=== PATIENT | female | born 1975 | race Caucasian/White ===

== ENCOUNTER → 2016-05-14 | Outpatient (CLI) | payer MEDICAID ==
[~2016-05-14] MED LIST: AC325T PO; ACHD5005 PO; ALBU0.8322 IH; ALBU17AE23 INH; ALBU8.5H2 IH; ALPR1T; AMIT50TA3 PO; AML5T PO; AMLO10TA82 PO; AMOX-355 PO; AMOX-358 PO; AMOX500C2 PO; AZIT250T5 PO; AZIT500T PO; AZTH250C PO; BENZ-13 PO; BENZ200C51 PO; BNZT1T PO; BNZT2T PO; BSP10T PO; BUDE10.2 IH; BUDE6HFA IH; CALC-80 PO; CEFP200T2 PO; CETI10TA17 PO; CHOL200018 PO; CLIN-62 PO; CLIN300C3 PO; CLON0.5T3 PO; CPR500T PO; CYAN25003 SL; CYCL10TA9 PO; CYCL5TAB PO; DAPS25TA2 PO; DESV100T PO; DIAZ10TA; DIPH-639 PO; DIPH1TAB PO; DOC-Q-LACE PO; DOXY100T2 PO; DPH25C PO; DULO60CA58 PO; DULO60CA6; DULO60CA6 PO; ERT1OO OP; FLUC150T PO; FLUT1DIS27 IH; FOLI-74 PO; FURO20TA4 PO; FURO40TA4 PO; GABA-486 PO; GABA-488 PO; GBPN300C PO; GEMF600T3 PO; GLIP-30 PO; GLIP5TAB13 PO; GLIP5TAB26 PO; GMFB600T PO; GUAI-554 PO; HCT25T PO; HYDR-229; HYDR-229 PO; HYDR-2854 PO; HYDR-34 PO; HYDR-3458 PO; HYDR-3584 PO; HYDR-3714 PO; HYDR-3720 PO; HYDR-3812 PO; HYDR-700 PO; HYDR25CA5 PO; IBP600T1; IBP600T1 PO; IBP800T PO; IBUP-1773 PO; IBUP-1780 PO; IBUP800T26 PO; INSU100I10 SQ; INSU100V16 SQ; INSU100V6 SQ; IPRA0.2S51 IH; IPRA3AMP11 INH; IPRA4AER IH; LANS30CA PO; LEVO750T24 PO; LEVO750T9 PO; LIRA0.6P SQ; LIRA0.6P3 SC; LISI-552 PO; LISI-596 PO; LISI20TA PO; LNS30CCR PO; LOPE2CAP PO; LORA10TA7; LORA10TA7 PO; LSNP20T PO; LUNESTA; MDR10T PO; MELATONIN 300MCG PO; METF-380 PO; METF1000 PO; METR500T PO; MIRT15TA6 PO; MNTL10T PO; MONT10TA24 PO; MULT-974 PO; NAPR-243 PO; NAPR250T2 PO; NEBU1EAC2 MC; NEBULIZER SOLN; NYST1POW15 TOP; OMEP40CA36 PO; ONDA-43 PO; ONDA4TAB8 SL; ONDA8TAB13 PO; ONDA8TAB6 PO; ONDA8TAB9 PO; ONDN4T PO; OXYC-12 PO; PHEN200T27 PO; POTA-51 PO; POTA10CA16 PO; POTA10CA43 PO; PRAV40TA PO; PRAV40TA2 PO; PRD10T PO; PRD20T PO; PRED10TA PO; PREG150C PO; PREG75CA; PREN-102 PO; PREN-93 PO; PROM6.25; PROP40TA5 PO; RAME8T; RANI150C11 PO; RANI150T11 PO; RISP1TAB19; RNT150T PO; RT-ALBUINH IH; SODI0.5GEL NS; SUCR1TAB PO; SULF-222 PO; SULF1TAB38 PO; TERA10CA3 PO; TERA5CAP10 PO; TOPI50TA20 PO; TRAZ150T42 PO; TRZ100T PO; ZIPR20CA26 PO; ZIPR60CA7 PO; ZIPR80CA9 PO; ZPR20C; ZPR80C PO; multivitamin PO
--- OUTSIDE RECORDS SUMMARY | 2016-05-14 09:05 | XMS REPORT | Continuity of Care Document ---
Author Author [facility] Organization [facility] Address Unknown Phone Unavailable Care Team Providers Care Welding Foreman Name Role Phone PCP Unavailable Source Comments Some departments are not documenting in the electronic medical record. If you do not see the information that you expected, contact Release of Information in the Health Information Management department at [phone] for further assistance in locating additional records.[facility] Active Allergies and Adverse Reactions Not on File Current Medications Prescription Sig. Disp. Refills Start End Date Status Date ibuprofen (MOTRIN) 800 mg Take 800 mg by mouth Active tablet every 6 hours as needed. metformin-ER(+) Take 1,000 mg by mouth Active (FORTAMET) 1,000 mg daily with dinner. tablet gabapentin (NEURONTIN) Take 300 mg by mouth Active 300 mg capsule three times daily. traZODone (DESYREL) 100 Take 100 mg by mouth at Active mg tablet bedtime daily. loratadine (ALAVERT) 10 Take 10 mg by mouth Active mg tablet daily. ziprasidone (GEODON) 80 Take 80 mg by mouth twice Active mg capsule daily with meals. benztropine (COGENTIN) 1 Take 1 mg by mouth twice Active mg tablet daily. MULTIVIT WITH Take by mouth. Active CALCIUM,IRON,MIN (WOMEN'S ONE DAILY PO) terazosin(+) (HYTRIN) 10 Take 1 Cap by mouth at 90 Cap 0 03/02/20 Active mg capsule bedtime daily. 14 Active Problems Problem Noted Date Difficulty voiding 09/14/2012 Social History Tobacco Use Types Packs/Day Years Used Date Never Smoker Alcohol Use Drinks/Week oz/Week Comments No Last Filed Vital Signs Vital Sign Reading Time Taken Blood Pressure 120/72 09/10/2012 1:28 PM CDT Pulse 84 09/10/2012 1:28 PM CDT Temperature - - Respiratory Rate 20 09/10/2012 1:28 PM CDT Height 1.626 m (5' 4") 09/10/2012 1:28 PM CDT Weight 208.655 kg (460 lb) 09/10/2012 1:28 PM CDT Body Mass Index 78.92 09/10/2012 1:28 PM CDT Oxygen Saturation - - Plan of Care Health Maintenance Due Date Last Done Comments Physical (Comprehensive) 1980 Exam Pertussis Vaccine 1984 Tetanus Vaccine 1990 Cervical Cancer Screening 1994 Influenza Vaccine 12/14/2015 Results from Last 3 Months Not on file
--- NOTE | 2016-05-14 10:27 | Diagnostic Imaging Report ---
CLINICAL INDICATION: Patient with nausea and elevated liver enzymes. Of note, patient ate eggs for a gastric emptying exam prior to this exam. EXAM: Right upper quadrant ultrasound. COMPARISON: Complete abdominal ultrasound dated 01/04/2009. FINDINGS: Limited exam due to patient body habitus. The liver is enlarged measuring 26 cm in craniocaudal dimension. Liver previously measured 25 cm. There is diffuse hyperechogenicity seen throughout the liver with smooth liver surface. There is no gross liver mass seen. The main portal vein demonstrates hepatopedal flow. Limited visualization of the kidney shows no gross abnormalities visualized. The kidney measures 13.3 cm in craniocaudal dimension. The pancreas is not well visualized on this exam due to bowel gas and patient body habitus. Common bile duct was unable to be visualized and obscured. The gallbladder also was not able to be visualized and obscured. The gallbladder may also be completely contracted given that patient had just recently ate. There is no sonographic Brown sign. There is no abdominal ascites. IMPRESSION: 1: Very limited exam with the gallbladder, common bile duct, and pancreas unable to be evaluated. This could be due to patient body habitus and overlying bowel gas. Also, patient ate prior to this exam limiting evaluation of the gallbladder. 2: Hepatomegaly with diffuse hyperechogenicity throughout the liver seen which may be related to chronic hepatocellular disease or diffuse fatty infiltration. Dictated by: Dictated on workstation # [id number]
--- NOTE | 2016-05-14 14:23 | Diagnostic Imaging Report ---
Gastric emptying scan. INDICATION: Chronic nausea. After the oral administration of 1 mCi of technetium 99m sulfur colloid mixed in a meal , images over the stomach with counts performed. FINDINGS: Gastric emptying is 25% at one hour , 52% at 2 hours, 72%, at 3 hours, and 88% at 4 hours. IMPRESSION: Gastric emptying within normal limits. Dictated by: Dictated on workstation # [id number]
== END ==
LOC: CARD 09:00
PROVIDERS: ATTEND Family Medicine
DX: R11.0 Nausea (principal); R74.0 Nonspecific elevation of levels of transaminase and lactic acid dehydrogenase [LDH]; R16.0 Hepatomegaly, not elsewhere classified
CPT/HCPCS: 76705; 78264

== ENCOUNTER 2016-07-21 18:30 | Emergency (ER) | payer MEDICAID ==
[~2016-07-21] VITALS: Ht 162.6 cm; Wt 200.0 kg
[~2016-07-21 18:30] MED LIST changes: -CETI10TA17 PO; -IBUP-1780 PO; -SUCR1TAB PO
[2016-07-21] MEDS ORDERED: RT-ALBUTEROL/IPRATROPIUM 3 ML (DUONEB) VIAL ONE (19:24)
[2016-07-21] MEDS ORDERED: RT-ALBUTEROL/IPRATROPIUM 3 ML (DUONEB) VIAL INH ONE (19:30)
[2016-07-21] MEDS ORDERED: ANTACID SUSP 30 ML UDC (MYLANTA) PO ONE (20:15)
[2016-07-21] MEDS ORDERED: LIDOCAINE 2% VISCOUS 15 ML UDC PO ONE (20:15)
[2016-07-21 20:28] LABS: BASOPHILS % (AUTO) 0 % (0-10); EOSINOPHILS # (AUTO) 0.2 10^3/uL (0.0-0.3); EOSINOPHILS % (AUTO) 2 % (0-10); LYMPHOCYTES # (AUTO) 2.7 X 10^3 (1.0-4.0); LYMPHOCYTES % (AUTO) 29 % (12-44); MEAN CORPUSCULAR HEMOGLOBIN 31 PG (25-34); MEAN CORPUSCULAR HGB CONC 33 G/DL (32-36); MEAN CORPUSCULAR VOLUME 95 FL (80-99); MEAN PLATELET VOLUME 10.9 FL (7.4-10.4); MONOCYTES # (AUTO) 0.5 X 10^3 (0.0-1.0); MONOCYTES % (AUTO) 6 % (0-12); NEUTROPHILS # (AUTO) 5.7 X 10^3 (1.8-7.8); NEUTROPHILS % (AUTO) 62 % (42-75); PLATELET COUNT 278 10^3/uL (130-400); RED BLOOD COUNT 3.86 10^6/uL (4.35-5.85); RED CELL DISTRIBUTION WIDTH 15.3 % (10.0-14.5); WHITE BLOOD COUNT 9.2 10^3/uL (4.3-11.0)
--- NOTE | 2016-07-21 20:41 | Diagnostic Imaging Report ---
INDICATION: Shortness of breath PA and lateral chest obtained at 8:45 p.m. and compared to 02/13/16. Heart and mediastinal silhouette are normal in appearance. There is poor inspiration but the lungs appear grossly clear. There is no pneumothorax or pleural fluid. IMPRESSION: Poor inspiration with no focal infiltrate or pneumothorax or pleural fluid. Dictated by: Dictated on workstation # [id number]
[2016-07-21 20:47] LABS: ALANINE AMINOTRANSFERASE 30 U/L (0-55); ALBUMIN 3.5 G/DL (3.2-4.5); ANION GAP 16 MMOL/L (5-14); ASPARTATE AMINO TRANSFERASE 66 U/L (5-34); BILIRUBIN,TOTAL 0.2 MG/DL (0.1-1.0); BLOOD UREA NITROGEN 20 MG/DL (7-18); BUN/CREATININE RATIO 27; CALCIUM 9.4 MG/DL (8.5-10.1); CARBON DIOXIDE 22 MMOL/L (21-32); CHLORIDE 100 MMOL/L (98-107); CREATININE SERUM 0.74 MG/DL (0.60-1.30); GFR ESTIMATED > 60; GLUCOSE 281 MG/DL (70-105); POTASSIUM 4.8 MMOL/L (3.6-5.0); SODIUM 138 MMOL/L (135-145); TOTAL PROTEIN 6.9 G/DL (6.4-8.2)
[2016-07-21 21:07] LABS: TROPONIN I < 0.30 NG/ML (<0.30)
--- NOTE | 2016-07-21 21:14 | ED Respiratory ---
General Chief Complaint: Respiratory Problems Stated Complaint: SOB/CHEST TIGHTNESS/PAIN Nursing Triage Note: c/o feeling soa/chest pain x3 days with cough. Source: patient, family (sister) Exam Limitations: no limitations History of Present Illness Time seen by provider: 19:30 Initial Comments 40-year-old female patient presents to the emergency department complaints of shortness of air. Patient has chronic shortness of air and hypoxia due to COPD , asthma, and sleep apnea. Patient states she is supposed to wear a seat Pap as well as O2 at home. States she wakes up with her see Pap mask at her hand ( when she wears it) as well as O2 and her hand. Patient relates that she seldom wears her seat Pap. Patient states she was supposed to see Dr. Cano on 10 July, but did not go to that appointment. Was also scheduled to have a sleep test done on Friday, but states she couldn't go. Initially reported central chest pain radiating through to the back for 3 days with cough, however now states she has chronic central chest pain with radiation to the back. Also reports chronic cough. States her sister was diagnosed with influenza B recently and both were prescribed Tamiflu. Denies improvement following Tamiflu treatment. Denies fevers, productive cough, sore throat, nasal congestion. Timing/Duration: other (chronic symptoms, worse over the last 3 days) Prior Episodes/Possible Cause: chronic episodes Modifying Factors: Worse With Activity, Worse With Coughing Allergies and Home Medications Allergies Coded Allergies: peach (Verified Allergy, Unknown, 02/14/16) Home Medications Albuterol Sulfate 8.5 Gm Hfa.aer.ad, 2 PUFF IH Q4H PRN for SHORTNESS OF BREATH, (Reported) Budesonide/Formoterol Fumarate 10.2 Gm Hfa.aer.ad, 1 PUFF IH BID, (Reported) Folic Acid/Mv,Fe,Other Min 1 Each Tablet, 1 TAB PO DAILY, (Reported) Gemfibrozil 600 Mg Tablet, 600 MG PO BID, (Reported) Ibuprofen 600 Mg Tablet, 600 MG PO QID, (Reported) Insulin Aspart 100 Unit/1 Ml Susp, 15-20 UNITS SQ AC, (Reported) Insulin Glargine,Hum.rec.anlog 100 Unit/1 Ml Vial, 50 UNITS SQ BID, (Reported) Ipratropium [place] 0.2 Mg/1 Ml Solution, 3 ML IH QID PRN for SHORTNESS OF BREATH, (Reported) UP TO 6 TIMES PER DAY Lisinopril 20 Mg Tablet, 20 MG PO DAILY, (Reported) Loperamide Hcl 2 Mg Capsule, PO UD PRN for DIARRHEA, (Reported) 2 CAPS INITIALLY, THEN 1 CAP AFTER EACH LOOSE STOOL. NOT TO EXCEED 8 CAPS/24 HRS. Loratadine 10 Mg Tablet, 10 MG PO DAILY, (Reported) Metformin HCl 1,000 Mg Tablet, 1,000 MG PO BID WITH MEALS, (Reported) Montelukast Sodium 10 Mg Tablet, 10 MG PO DAILY, (Reported) Omeprazole 40 Mg Capsule.dr, 40 MG PO DAILY, (Reported) Pravastatin Sodium 40 Mg Tablet, 40 MG PO HS, (Reported) Pregabalin 150 Mg Capsule, 300 MG PO BID, (Reported) TAKES 2 (150 MG) CAPSULES Ranitidine HCl 150 Mg Tablet, 300 MG PO HS, (Reported) TAKES 2 (150 MG) TABLETS Constitutional: No fever, malaise EENTM: no symptoms reported Respiratory: see HPI, cough (chronic cough, worse over the last 3 days), dyspnea on exertion (chronic dyspnea on exertion), orthopnea (chronic orthopnea) , No phlegm, short of breath (chronic shortness of breath, worse over the last 3 days) Cardiovascular: see HPI, No palpitations, No syncope Gastrointestinal: no symptoms reported Genitourinary: no symptoms reported Skin: no symptoms reported Psychiatric/Neurological: No Symptoms Reported All Other Systems Reviewed Negative Unless Noted: Yes (Negative excepted noted.) Past Tbreqzw-Qoqlav-Tuzxdc Hx Patient Social History Alcohol Use: Denies Use Recreational Drug Use: No Smoking Status: Former Smoker Type Used: Cigarettes 2nd Hand Smoke Exposure: No Recent Foreign Travel: No Contact w/Someone Who Travel: No Recent Infectious Disease Expo: No Recent Hopitalizations: No Immunizations Up To Date Tetanus Booster (TDap): Less than 5yrs PED Vaccines UTD: No Date of Pneumonia Vaccine: Jan 13, 2012 Date of Influenza Vaccine: Feb 26, 2012 Seasonal Allergies Seasonal Allergies: No Surgeries HX Surgeries: Yes (abscess on abd , "BLADDER STRETCH") Surgeries: Adenoidectomy, Bladder Surgery, Tonsillectomy Respiratory Hx Respiratory Disorders: Yes (has Cpap (seldom wearing), wears home O2) Respiratory Disorders: Asthma, Sleep Apnea, COPD Cardiovascular Hx Cardiac Disorders: Yes Cardiac Disorders: Chronic Edema/Swelling, High Cholesterol, Hypertension Neurological Hx Neurological Disorders: No Reproductive System : No Hx Reproductive Disorders: No Sexually Transmitted Disease: No HIV/AIDS: No Female Reproductive Disorders: Denies Genitourinary Hx Genitourinary Disorders: No Gastrointestinal Hx Gastrointestinal Disorders: Yes Gastrointestinal Disorders: Gastroesophageal Reflux, Chronic Constipation Musculoskeletal Hx Musculoskeletal Disorders: No Musculoskeletal Disorders: Chronic Back Pain Endocrine Hx Endocrine Disorders: Yes (Type II, morbid obesity) Endocrine Disorders: Diabetes, Insulin dep HEENT HX ENT Disorders: No Loss of Vision: Denies Hearing Impairment: Denies Cancer Hx Cancer: No Psychosocial Hx Psychiatric Problems: Yes Behavioral Health Disorders: Anxiety, Depression Integumentary HX Skin/Integumentary Disorder: No (MULTIPLE ABCESSES REMOVED ABDOMEN) Skin/Integumentary Disorders: Eczema Blood Transfusions Hx Blood Disorders: No Adverse Reaction to a Blood Tr: No Reviewed Nursing Assessment Reviewed/Agree w Nursing PMH: Yes Family Medical History Significant Family History: Heart Disease, Seizures Family Medial History: Cancer 19 FATHER, Onset:Unknown 19 MOTHER, Onset:Unknown Cancer of colon 19 FATHER, Onset:Unknown 19 MOTHER, Onset:Unknown Family history: Cardiovascular disease 19 FATHER, Onset:Unknown 19 MOTHER, Onset:Unknown Family history: Diabetes mellitus 19 FATHER, Onset:Unknown 19 MOTHER, Onset:Unknown Physical Exam Vital Signs Capillary Refill : Less Than 3 Seconds General Appearance: no apparent distress (patient talking constantly without difficulty. Patient noted to talk the majority of the visit without shortness of air noted.), obese (morbid obesity.) Eyes: Bilateral Eye EOMI, Bilateral Eye Normal Inspection, Bilateral Eye PERRL HEENT: PERRL/EOMI, normal ENT inspection, TMs normal, pharynx normal Neck: supple, normal inspection Respiratory: lungs clear, no respiratory distress, no accessory muscle use, crackles, No rales, No rhonchi, No wheezing, expiration Cardiovascular: normal peripheral pulses, no murmur, tachycardia Gastrointestinal: normal bowel sounds, non tender, soft Extremities: no calf tenderness, normal capillary refill, pedal edema (one plus bilaterally) Neurologic/Psychiatric: alert, normal mood/affect, oriented x 3 Skin: normal color, warm/dry Progress/Results/Core Measures Results/Orders Lab Results Laboratory Tests Test 07/21/16 20:20 Range/Units White Blood Count 9.2 4.3-11.0 10^3/uL Red Blood Count 3.86 L 4.35-5.85 10^6/uL Hemoglobin 12.0 11.5-16.0 G/DL Hematocrit 37 35-52 % Mean Corpuscular Volume 95 80-99 FL Mean Corpuscular Hemoglobin 31 25-34 PG Mean Corpuscular Hemoglobin Concent 33 32-36 G/DL Red Cell Distribution Width 15.3 H 10.0-14.5 % Platelet Count 278 130-400 10^3/uL Mean Platelet Volume 10.9 H 7.4-10.4 FL Neutrophils (%) (Auto) 62 42-75 % Lymphocytes (%) (Auto) 29 12-44 % Monocytes (%) (Auto) 6 0-12 % Eosinophils (%) (Auto) 2 0-10 % Basophils (%) (Auto) 0 0-10 % Neutrophils # (Auto) 5.7 1.8-7.8 X 10^3 Lymphocytes # (Auto) 2.7 1.0-4.0 X 10^3 Monocytes # (Auto) 0.5 0.0-1.0 X 10^3 Eosinophils # (Auto) 0.2 0.0-0.3 10^3/uL Basophils # (Auto) 0.0 0.0-0.1 10^3/uL Sodium Level 138 135-145 MMOL/L Potassium Level 4.8 3.6-5.0 MMOL/L Chloride Level 100 98-107 MMOL/L Carbon Dioxide Level 22 21-32 MMOL/L Anion Gap 16 H 5-14 MMOL/L Blood Urea Nitrogen 20 H 7-18 MG/DL Creatinine 0.74 0.60-1.30 MG/DL Estimat Glomerular Filtration Rate > 60 BUN/Creatinine Ratio 27 Glucose Level 281 H 70-105 MG/DL Calcium Level 9.4 8.5-10.1 MG/DL Magnesium Level 1.9 1.8-2.4 MG/DL Total Bilirubin 0.2 0.1-1.0 MG/DL Aspartate Amino Transf (AST/SGOT) 66 H 5-34 U/L Alanine Aminotransferase (ALT/SGPT) 30 0-55 U/L Alkaline Phosphatase 95 40-136 U/L Troponin I < 0.30 <0.30 NG/ML B-Type Natriuretic Peptide < 10.0 <100.0 PG/ML Total Protein 6.9 6.4-8.2 G/DL Albumin 3.5 3.2-4.5 G/DL TSH Melvin Testing 0.60 0.35-4.94 UIU/ML My Orders Orders - SHAR BULL PA Albuterol/Ipra Inhalation Soln (Duoneb I (07/21/16 19:30) Svn Sm Volume Nebulizer Rt-Rfs (07/21/16 19:25) Chest Pa/Lat (2 View) (07/21/16 19:27) Albuterol/Ipra Inhalation Soln (Duoneb I (07/21/16 19:24) Cbc With Automated Diff (07/21/16 20:01) Comprehensive Metabolic Panel (07/21/16 20:01) Magnesium (07/21/16 20:01) Thyroid Analyzer (07/21/16 20:01) Troponin I (07/21/16 20:01) Saline Lock/Iv-Start (07/21/16 20:01) Ekg Tracing (07/21/16 20:01) O2 (07/21/16 20:01) Monitor-Rhythm Ecg Trace Only (07/21/16 20:01) Lidocaine 2% Viscous 15 Ml (Xylocaine Vi (07/21/16 20:15) Antacid Suspension (Mylanta Suspension (07/21/16 20:15) BNP (07/21/16 20:01) Methylprednisolone Sod Succ (Solu-Medrol (07/21/16 21:55) Iv Push Mash Tub Cooker Ed (07/21/16 ) Medications Given in ED Vital Signs/I&O Blood Pressure Mean: 106 Diagnostic Imaging Diagonstic Imaging: Xray Plain Films/CT/US/NM/MRI: chest Comments INDICATION: Shortness of breath PA and lateral chest obtained at 8:45 p.m. and compared to 02/13/16. Heart and mediastinal silhouette are normal in appearance. There is poor inspiration but the lungs appear grossly clear. There is no pneumothorax or pleural fluid. IMPRESSION: Poor inspiration with no focal infiltrate or pneumothorax or pleural fluid. Dictated by: Dictated on workstation # [id number] Reviewed: Reviewed by Me (radiology report reviewed by me) Departure Communication Progress Notes Patient heard going to and coming from x-ray talking to the staff without difficulty. Speaking in full sentences. Patient case discussed with Dr. Cano. Dr. Cano recommends discharge to home with follow-up as an outpatient in her office. Request patient to continue all current medications and orders. All laboratory findings, diagnostic study findings, and recommendations per Dr. Cano were discussed with the patient and family present in the room. All discharge instructions and all return precautions were discussed with the patient as described in the discharge instructions of this report. Both voice understanding and agree with the treatment plan. Impression Impression: Primary Impression: COPD with asthma Additional Impression: Diabetes mellitus Disposition: HOME, SELF-CARE Condition: Improved Departure-Patient Inst. Decision time for Depature: 21:17 Referrals: ZAINAB CANO MD (PCP/Family) Primary Care Physician IDALIA YIN MD Patient Instructions: Medicines for Chronic Obstructive Pulmonary Disease (COPD ) Add. Discharge Instructions: All discharge instructions reviewed with patient and/or family. Voiced understanding. Continue usual medications. Monitor your blood sugars closely. Follow-up with Dr. Cano this week for recheck, call for appointment time. Call the sleep lab on Friday to reschedule your sleep test. Return to the emergency department for worsened shortness breath, chest pain, fever, vomiting , decreased urination, or any other concerns. SHAR BULL Jul 21, 2016 21:14
[2016-07-21 21:15] LABS: MAGNESIUM 1.9 MG/DL (1.8-2.4)
[2016-07-21] MEDS ORDERED: methylPREDNISolone 125 MG (Solu-MEDROL) VIAL IV STA (21:55)
[2016-07-21 22:03] VITALS: BP 133/59
--- OUTSIDE RECORDS SUMMARY | 2016-08-25 06:38 | XMS REPORT | Continuity of Care Document ---
Author Author [facility] Organization [facility] Address Unknown Phone Unavailable Care Team Providers Care Supervisor Stone Name Role Phone PCP Unavailable Source Comments Some departments are not documenting in the electronic medical record. If you do not see the information that you expected, contact Release of Information in the Health Information Management department at [phone] for further assistance in locating additional records.[facility] Active Allergies and Adverse Reactions Not on [...] Tetanus Vaccine 1990 Cervical Cancer Screening 1994 Breast Cancer Screening 2013 Influenza Vaccine 12/13/2016 Results from Last 3 Months Not on file
--- OUTSIDE RECORDS SUMMARY | 2016-08-25 06:38 | XMS REPORT ---
Author Author ZAINAB HESS [facility] eClinicalWorks Address Unknown Phone Unavailable Care Team Providers Care Checkout Operator Name Role Phone ZAINAB HESS CP Unavailable Allergies No Known Allergies Problems Problem Type Condition ICD-9 Code Onset Dates Condition Status Problem Lumbago 724.2 Active Problem Microalbuminuria 791.0 Active Problem Unspecified tinnitus 388.30 Active Problem Obesity hypoventilation syndrome 278.03 Active Problem Lymphedema 457.1 Active Problem Hyperlipidemia 272.4 Active Problem Chronic nausea 787.02 Active Problem Chronic diarrhea 787.91 Active Problem Bladder dysfunction 596.59 Active Problem Obstructive sleep apnea 327.23 Active Problem Insomnia, unspecified 780.52 Active Problem Esophageal reflux 530.81 Active Problem Essential hypertension, benign 401.1 Active Problem Meralgia paresthetica 355.1 Active Problem Major depressive disorder, recurrent episode, moderate 296.32 Active Problem Morbid obesity 278.01 Active Problem Diabetes with neurological manifestations, type II or unspecified type , not stated as uncontrolled 250.60 Active Problem Anxiety state, unspecified 300.00 Active Medications Medication Code System Code Instructions Start Date End Date Status Dosage Zofran ODT [facility] [address]-57 8 MG Orally every 8 hrs as needed 1 tablet on the tongue and allow to dissolve Results No Known Results Summary Purpose eClinicalWorks Submission
--- OUTSIDE RECORDS SUMMARY | 2016-08-25 06:38 | XMS REPORT ---
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 Active 966188561278 Problem Chronic tension-type headache, intractable G44.221 Active 516828858 Problem Low back pain M54.5 Active 962659187 Problem Anxiety F41.9 Active 68523381 Problem Type 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 Active 63991550 Problem Tinnitus of both ears H93.13 Active 5813391704237 Problem Chronic nausea R11.0 Active 863397044 Problem Obstructive sleep apnea G47.33 Active 12514016 Problem Microalbuminuria R80.9 Active 270086035 Problem Chronic diarrhea K52.9 Active 507319461 Problem Primary insomnia F51.01 Active 931050921 Problem Gastroesophageal reflux disease, esophagitis presence not specified K21.9 Active 315769715 Problem Lymphedema I89.0 Active 745577701 Problem Major depressive disorder, recurrent, unspecified F33.9 Active 124223401 Problem Hypertriglyceridemia E78.1 Active 111601791 Problem Type 2 diabetes mellitus with hyperglycemia E11.65 Active 54497574 ALLERGIES Unknown Allergies SOCIAL HISTORY No smoking Hx information available PLAN OF CARE VITAL SIGNS MEDICATIONS Unknown Medications RESULTS No Results PROCEDURES No Known procedures IMMUNIZATIONS No Known Immunizations
--- OUTSIDE RECORDS SUMMARY | 2016-08-25 06:39 | XMS REPORT ---
Author Author ZAINAB HESS [employer]Clinical[employer] Address Unknown Phone Unavailable Care Team Providers Care Wrapper Off Name Role Phone ZAINAB HESS CP Unavailable Allergies No Known Allergies Problems Problem Type Condition Code Onset Dates Condition Status Problem Primary insomnia F51.01 Active Problem Major depressive disorder, recurrent, unspecified F33.9 Active Problem Gastroesophageal reflux disease, esophagitis presence not specified K21.9 Active Problem Low back pain M54.5 Active Problem Anxiety F41.9 Active Problem Tinnitus of both ears H93.13 Active Problem Essential hypertension I10 Active Problem Type 2 diabetes mellitus with hyperglycemia E11.65 Active Problem Morbid obesity with alveolar hypoventilation E66.2 Active Problem Meralgia paresthetica, unspecified laterality G57.10 Active Problem 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 [address]-11 75 MG Orally Three times a day September 16, 2014 1 capsule Results No Known Results Summary Purpose eClinicalWorks Submission
--- OUTSIDE RECORDS SUMMARY | 2016-08-25 06:40 | XMS REPORT ---
Author Author ZAINAB HESS eClinicalWorks Address Unknown Phone Unavailable Care Team Providers Care Sales Representative Printing Paper Name Role Phone ZAINAB HESS CP Unavailable Allergies No Known Allergies Problems Problem Type Condition Code Onset Dates Condition Status Problem Type 2 diabetes mellitus with hyperglycemia E11.65 Active Problem Meralgia paresthetica, unspecified laterality G57.10 Active Problem Essential hypertension I10 Active Problem Chronic tension-type headache, intractable G44.221 Active Problem Type 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 Active Problem Recurrent cellulitis L03.90 Active Problem Anxiety F41.9 Active Problem Morbid obesity with alveolar hypoventilation E66.2 Active Problem Tinnitus of both ears H93.13 Active Problem Low back pain M54.5 Active Problem Chronic diarrhea K52.9 Active Problem Chronic nausea R11.0 Active Problem 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
--- OUTSIDE RECORDS SUMMARY | 2016-08-25 06:40 | XMS REPORT ---
Author Author ZAINAB HESS [employer]Clinical[employer] Address Unknown Phone Unavailable Care Team Providers Care Furniture And Bedding Inspector Name Role Phone ZAINAB HESS CP Unavailable Allergies No Known Allergies Problems Problem Type Condition Code Onset Dates Condition Status Problem Gastroesophageal reflux disease, esophagitis presence not specified K21.9 Active Problem Type 2 diabetes mellitus with hyperglycemia E11.65 Active Problem Major depressive disorder, recurrent, unspecified F33.9 Active Problem Tinnitus of both ears H93.13 Active Problem Low back pain M54.5 Active Problem Type 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 Active Problem Meralgia paresthetica, unspecified laterality G57.10 Active Problem Essential hypertension I10 Active Problem Anxiety F41.9 Active Problem Morbid obesity with alveolar hypoventilation E66.2 Active Problem 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
--- OUTSIDE RECORDS SUMMARY | 2016-08-25 06:40 | XMS REPORT ---
Author LYN Pisano [facility] eClinicalWorks Address Unknown Phone Unavailable Care Team Providers Care Brazing Machine Operator Automatic Name Role Phone LYN BECKWITH CP Unavailable Allergies, Adverse Reactions, Alerts Substance Reaction Event Type Amitriptyline HCl Info Not Available Drug Allergy Hydrocodone-acetaminophen 7.5-500 Mg Tablet Violated narcotics contract Non Drug Allergy Problems Problem Type Condition Code Onset Dates Condition Status Problem Type 2 diabetes mellitus with hyperglycemia E11.65 Active Problem Meralgia paresthetica, unspecified laterality G57.10 Active Problem Essential hypertension I10 Active Problem Chronic tension-type headache, intractable G44.221 Active Assessment Dental examination Z01.20 Active Problem Type 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 Active Assessment Dental caries K02.9 Active Problem Recurrent cellulitis L03.90 Active Problem [...] unspecified F33.9 Active Medications No Known Medications Procedures Procedure Coding System Code Date INTRAORL-PERIAPICAL 1 FILM 11767 CPT-4 D0220 October 25, 2015 SURG REMOVAL ERUPTED TOOTH CPT-4 D7210 October 25, 2015 LTD ORAL EVALUATION - PROBLEM FOCUS CPT-4 D0140 October 25, 2015 Vital Signs Date/Time: October 25, 2015 Blood Pressure Diastolic 96 mmHg Blood Pressure Systolic 160 mmHg Height 63 in Results No Known Results Summary Purpose eClinicalWorks Submission
--- OUTSIDE RECORDS SUMMARY | 2016-08-25 06:40 | XMS REPORT ---
Author Author LUCIE AKHTAR Organization [employer]Clinical[employer] Address Unknown Phone Unavailable Care Team Providers Care Regional Medical Director Name Role Phone LUCIE AKHTAR CP Unavailable Allergies No Known Allergies Problems [...] depressive disorder, recurrent, unspecified F33.9 Active Medications Medication Code System Code Instructions Start Date End Date Status Dosage [facility] [address]-38 5-325 MG Orally every 6 hrs 1 tablet as needed Procedures Procedure Coding System Code Date TX COMPS - UNUSUL CIRCUMSTANCES RPT CPT-4 D9930 October 30, 2015 INTRAORL-PERIAPICAL 1 FILM 16513 CPT-4 D0220 October 30, 2015 Vital Signs Date/Time: October 30, 2015 Blood Pressure Diastolic 84 mmHg Blood Pressure Systolic 150 mmHg Results No Known Results Summary Purpose eClinicalWorks Submission
--- OUTSIDE RECORDS SUMMARY | 2016-08-25 06:40 | XMS REPORT ---
Author Author ZAINAB HESS [employer] Address Unknown Phone Unavailable Care Team Providers Care Planner Chief Name Role Phone ZAINAB HESS CP Unavailable Allergies, Adverse Reactions, Alerts Substance [...] Problem Tinnitus of both ears H93.13 Active Assessment Cellulitis, unspecified cellulitis site L03.90 Active Problem Low back pain M54.5 Active Assessment Type 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 Active Assessment Postinflammatory hyperpigmentation L81.0 Active Problem Type 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 Active Problem Meralgia paresthetica, unspecified laterality G57.10 Active Problem Essential hypertension I10 Active Problem Anxiety F41.9 Active Problem Morbid obesity with alveolar hypoventilation E66.2 Active Problem 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 Active Problem Microalbuminuria R80.9 Active Assessment Intractable vomiting with nausea, vomiting of unspecified type R11.2 Active Assessment Chronic diarrhea K52.9 Active Problem Obstructive sleep apnea G47.33 Active Problem Lymphedema I89.0 Active Problem Chronic diarrhea K52.9 Active Problem Hypertriglyceridemia E78.1 Active Problem Chronic nausea R11.0 Active Problem Primary insomnia F51.01 Active Medications Medication Code System Code Instructions Start Date End Date Status Dosage Test strips NDC 0 Test Strips 4 times a day October 27, 2014 test blood sugar Lancets NDC 0 Blood Glucose 4 times a day October 27, 2014 test blood sugar NovoLog Flexpen [facility] [address]-98 100 UNIT/ML Subcutaneous 3 times a day before meals September 16, 2014 15 units Glucometer NDC 0 glucometer October 26, [address] [place] [address]-49 800-160 MG Orally Twice a day Apr 04, 2015 Apr 14, 2015 1 tablet Ibuprofen [facility] 33314970023 600 MG Orally Three times a day 1 tablet as needed Lyrica [facility] [address]-28 150 MG Orally Twice a day September 16, 2014 1 capsule Lancet Device [facility] 0 Blood Glucose October 27, 2014 as directed Loratadine [facility] [address]-53 10 MG Orally Once a day 1 tablet Geodon [facility] [address]-39 60 mg Orally Once a day 1 capsule with food Nebulizer ND 0 Jun 01, 2013 2 times per day PRN for SOB; Needed for lifetime Vitamins [facility] [address]-86 Orally Once a day 1 tablet Metformin HCl [facility] 70306731860 1000 MG Orally Twice a day 1 tablet with meals Montelukast Sodium [facility] 74842548372 10 MG TAKE 1 TABLET BY MOUTH EVERY DAY Symbicort [facility] [address]-63 160-4.5 MCG/ACT Inhalation Twice a day Mar 16, 2015 1 puffs Depo-Provera [facility] [address]-50 150 MG/ML Intramuscular 1 ml Cyanocobalamin [facility] [address]-17 1000 MCG Orally Once a day 1 tablet Lisinopril [facility] [address]-82 40 MG Orally Once a day 1 tablet Loperamide HCl [facility] 74270981647 2 MG take 2 capsule (4 mg) orally after 1st loose stool, followed by 1 cap after each subsequent loose stool not to exceed 16 mg/day, Pravastatin Sodium [facility] [address]-80 40 MG Orally Once a day at HS avoid grape fruit September 13, 2014 1 tablet Pen [place] [facility] [address]-08 31G X 6 MM Nov 17, 2014 as directed Ranitidine HCl [facility] 30820382042 150 MG TAKE 2 TABLETS BY MOUTH AT BEDTIME Chlorhexidine [facility] [address]-64 4 once weekly- wash for 15 seconds, avoid face, head and genitials October 14, 2014 as directed ProAir HFA [facility] [address]-69 108 (90 Base) MCG/ACT Inhalation every 4 hrs Mar 16, 2015 2 puffs as needed Vitamin N19-Jpkqg Acid [facility] [address]72 500-400 MCG Orally Once a day 1 tablet Lantus SoloStar [facility] [address]-18 100 UNIT/ML Subcutaneous Once a day 75-80 units Zofran ODT [facility] 52337398706 8 MG 1 tablet on the tongue and allow to dissolve every 8 hrs as needed Orally Ipratropium-Albuterol [facility] [address]-56 0.5-2.5 (3) MG/3ML Inhalation Four times a day, up to 6 doses per day 3 ml as needed Kaopectate Stool Softener ND 0 not defined Omeprazole [facility] 32675842888 40 MG TAKE 1 CAPSULE BY MOUTH EVERY DAY Procedures Procedure Coding System Code Date Office Visit, Est Pt., Level 3 CPT-4 63462 Apr 04, 2015 Vital Signs Date/Time: Apr 04, 2015 Temperature 98.8 F Weight 471.1 lbs Height 63 in BMI 83.44 Index Blood Pressure Diastolic 82 mmHg Blood Pressure Systolic 128 mmHg Cardiac Monitoring Heart Rate 96 bpm Results No Known Results Summary Purpose eClinicalWorks Submission
--- OUTSIDE RECORDS SUMMARY | 2016-08-25 06:41 | XMS REPORT ---
Author Author ZAINAB HESS [employer] Address Unknown Phone Unavailable Care Team Providers Care Fulling Mill Operator Name Role Phone ZAINAB HESS CP [...]
--- OUTSIDE RECORDS SUMMARY | 2016-08-25 06:41 | XMS REPORT ---
Author Author ZAINAB HESS [employer]ClinicalWorks Address Unknown Phone Unavailable Care Team Providers Care Micromatic Hone Operator Name Role Phone ZAINAB HESS CP [...] K52.9 Active Problem Hypertriglyceridemia E78.1 Active Medications No Known Medications Results No Known Results Summary Purpose eClinicalWorks Submission
--- OUTSIDE RECORDS SUMMARY | 2016-08-25 06:41 | XMS REPORT ---
Author Author [facility], [facility] eClinicalWorks Address Unknown Phone Unavailable Care Team Providers Care Chain Saw Driver Name Role Phone [facility], [facility] CP Unavailable Allergies No Known Allergies Problems [...] Z99.81 Active Problem Microalbuminuria R80.9 Active Assessment Unspecified mood [affective] disorder F39 Active Problem Obstructive sleep apnea G47.33 Active Problem Lymphedema I89.0 Active Problem Chronic diarrhea K52.9 Active Problem Hypertriglyceridemia E78.1 Active Problem Chronic nausea R11.0 Active Problem Primary insomnia F51.01 Active Medications No Known Medications Procedures Procedure Coding System Code Date HEALTH PROMOTION CPT-4 S0280 May 12, 2015 Results No Known Results Summary Purpose eClinicalWorks Submission
--- OUTSIDE RECORDS SUMMARY | 2016-08-25 06:42 | XMS REPORT ---
Author Author [facility], [facility] eClinicalWorks Address Unknown Phone Unavailable Care Team Providers Care Agricultural Purchasing Agent Name Role Phone [facility], [facility] CP Unavailable Allergies No Known Allergies [...] Medications Procedures Procedure Coding System Code Date CARE COORDINATION CPT-4 S0281 July 27, 2015 Results No Known Results Summary Purpose eClinicalWorks Submission
--- OUTSIDE RECORDS SUMMARY | 2016-08-25 06:42 | XMS REPORT ---
Author Author ZAINAB HESS [employer] Address Unknown Phone Unavailable Care Team Providers Care Fats And Oils Loader Name Role Phone ZAINAB HESS CP Unavailable [...]
--- OUTSIDE RECORDS SUMMARY | 2016-08-25 06:42 | XMS REPORT ---
Author Author [facility], [facility] eClinicalWorks Address Unknown Phone Unavailable Care Team Providers Care Patient Resource Coordinator Name Role Phone [facility], [facility] CP Unavailable Allergies No Known [...] System Code Date HEALTH PROMOTION CPT-4 S0280 July 26, 2015 Results No Known Results Summary Purpose eClinicalWorks Submission
--- OUTSIDE RECORDS SUMMARY | 2016-08-25 06:42 | XMS REPORT ---
Author Author ZAINAB HESS [employer] Address Unknown Phone Unavailable Care Team Providers Care Customer Counter Representative Name Role Phone ZAINAB HESS CP Unavailable [...]
--- OUTSIDE RECORDS SUMMARY | 2016-08-25 06:42 | XMS REPORT ---
Author Author ZAINAB HESS [facility] eClinicalWorks Address Unknown Phone Unavailable Care Team Providers Care Diesel Roller Operator Name Role Phone ZAINAB HESS CP [...] Problem Anxiety state, unspecified 300.00 Active Medications No Known Medications Results No Known Results Summary Purpose eClinicalWorks Submission
--- OUTSIDE RECORDS SUMMARY | 2016-08-25 06:43 | XMS REPORT ---
Author Author [facility], [facility] eClinicalWorks Address Unknown Phone Unavailable Care Team Providers Care Winch Truck Operator Name Role Phone [facility], [facility] CP Unavailable Allergies No Known Allergies Problems [...] 780.52 Active Problem Esophageal reflux 530.81 Active Assessment Affective disorder 296.90 Active Problem Essential hypertension, benign 401.1 Active Problem Meralgia paresthetica 355.1 Active Problem Major depressive disorder, recurrent episode, moderate 296.32 Active Problem Morbid obesity 278.01 Active Problem Diabetes with neurological manifestations, type II or unspecified type , not stated as uncontrolled 250.60 Active Problem Anxiety state, unspecified 300.00 Active Medications No Known Medications Procedures Procedure Coding System Code Date HEALTH PROMOTION CPT-4 S0280 Dec 01, 2014 Results No Known Results Summary Purpose eClinicalWorks Submission
--- OUTSIDE RECORDS SUMMARY | 2016-08-25 06:43 | XMS REPORT ---
Author Author ZAINAB HESS [employer] Address Unknown Phone Unavailable Care Team Providers Care Mds Manager Name Role Phone ZAINAB HESS CP Unavailable [...]
--- OUTSIDE RECORDS SUMMARY | 2016-08-25 06:43 | XMS REPORT ---
Author Author ZAINAB HESS [facility] eClinicalWorks Address Unknown Phone Unavailable Care Team Providers Care Retirement Village Manager Name Role Phone ZAINAB HESS CP Unavailable Allergies No Known Allergies Problems Problem Type Condition Code Onset Dates Condition Status Problem Lumbago [...] Instructions Start Date End Date Status Dosage Lantus SoloStar [facility] [address]-38 100 UNIT/ML Subcutaneous Once a day 75-80 units Results No Known Results Summary Purpose eClinicalWorks Submission
--- OUTSIDE RECORDS SUMMARY | 2016-08-25 06:43 | XMS REPORT ---
Author Author ZAINAB HESS eClinicalWorks Address Unknown Phone Unavailable Care Team Providers Care Drying Room Supervisor Name Role Phone ZAINAB HESS CP Unavailable Allergies No Known Allergies Problems Problem Type Condition Code Onset Dates Condition Status Problem Type 2 diabetes mellitus with hyperglycemia E11.65 Active Problem Meralgia paresthetica, unspecified laterality G57.10 Active Problem Essential hypertension I10 Active Problem Chronic tension-type headache, intractable G44.221 Active Assessment Type 2 diabetes mellitus with hyperglycemia E11.65 Active Problem Type 2 diabetes mellitus with [...] Start Date End Date Status Dosage Lantus [facility] [address]-88 100 UNIT/ML Subcutaneous Twice a day June 22, 2015 50 units NovoLog [facility] [address]-20 100 UNIT/ML Subcutaneous 3 times a day June 22, 2015 17 units Test strips ND 0 Test Strips 4 times a day October 27, 2014 test blood sugar Results No Known Results Summary Purpose eClinicalWorks Submission
--- OUTSIDE RECORDS SUMMARY | 2016-08-25 06:43 | XMS REPORT ---
Author Author LUCIE AKHTAR [facility] eClinicalWorks Address Unknown Phone Unavailable Care Team Providers Care Booking Manager Name Role Phone LUCIE AKHTAR Unavailable Allergies, Adverse Reactions, Alerts Substance Reaction [...] Instructions Start Date End Date Status Dosage Hope [facility] [address]-99 5-325 MG Orally every 6 hrs 1 tablet as needed Metformin HCl [facility] 13599584076 1000 MG TAKE 1 TABLET BY MOUTH WITH MEALS TWICE A DAY -YOUR ASKS YOU TO MAKE AN APPOINTMENT Loratadine [facility] 76691121974 10 MG TAKE 1 TABLET BY MOUTH EVERY DAY [facility] [address]-55 5-325 MG Orally every 6 hrs 1 tablet as needed Ranitidine HCl [facility] 96375535296 150 MG TAKE 2 TABLETS BY MOUTH DAILY AT BEDTIME Procedures Procedure Coding System Code Date LTD ORAL EVALUATION - PROBLEM FOCUS CPT-4 D0140 November 06, 2015 Vital Signs Date/Time: November 06, 2015 Blood Pressure Diastolic 80 mmHg Blood Pressure Systolic 130 mmHg Height 63 in Results No Known Results Summary Purpose eClinicalWorks Submission
--- OUTSIDE RECORDS SUMMARY | 2016-08-25 06:43 | XMS REPORT ---
Author Author HALINA WILBURN [facility] eClinicalWorks Address Unknown Phone Unavailable Care Team Providers Care Turkish Rubber Name Role Phone HALINA WILBURN CP Unavailable Allergies, Adverse Reactions, Alerts Substance [...] Active Problem Esophageal reflux 530.81 Active Assessment Dental caries K02.9 Active Assessment Abdominal abscess K65.1 Active Problem Essential hypertension, benign 401.1 Active Problem Meralgia paresthetica 355.1 Active Problem Major depressive disorder, recurrent episode, moderate 296.32 Active Problem Morbid obesity 278.01 Active Problem Diabetes with neurological manifestations, type II or unspecified type , not stated as uncontrolled 250.60 Active Problem Anxiety state, unspecified 300.00 Active Medications Medication Code System Code Instructions Start Date End Date Status Dosage Ibuprofen [facility] [address]-42 600 MG Orally Three times a day 1 tablet as needed Lantus SoloStar [facility] [address]-75 100 UNIT/ML Subcutaneous Once a day 75-80 units Lyrica [facility] [address]-65 75 MG Orally Three times a day September 16, 2014 1 capsule Loratadine [facility] [address]-65 10 MG Orally Once a day 1 tablet Cyanocobalamin [facility] [address]-96 1000 MCG Orally Once a day 1 tablet Kaopectate Stool Softener ND 0 not defined Chlorhexidine [facility] [address]-99 4 once weekly- wash for 15 seconds, avoid face, head and genitials October 14, 2014 as directed Pen [place] [facility] [address]-12 31G X 6 MM Nov 17, 2014 as directed NovoLog Flexpen [facility] [address]-41 100 UNIT/ML Subcutaneous 3 times a day before meals September 16, 2014 15 units Lancets NDC 0 Blood Glucose 4 times a day October 27, 2014 test blood sugar Depo-Provera [facility] [address]-93 150 MG/ML Intramuscular 1 ml Loperamide HCl [facility] [address]-89 2 MG September 08, 2014 take 2 capsule (4 mg) orally after 1st loose stool, followed by 1 cap after each subsequent loose stool not to exceed 16 mg/day, Vitamins [facility] [address]-12 Orally Once a day 1 tablet Geodon [facility] [address]-65 60 mg Orally Once a day 1 capsule with food Omeprazole [facility] [address]-87 40 MG Orally Once a day 1 capsule Metformin HCl [facility] [address]-18 1000 MG Orally Twice a day September 07, 2014 1 tablet with meals Lisinopril [facility] [address]-77 40 MG Orally Once a day 1 tablet Ipratropium-Albuterol [facility] [address]-37 0.5-2.5 (3) MG/3ML Inhalation Four times a day, up to 6 doses per day 3 ml as needed Pravastatin Sodium [facility] [address]-05 40 MG Orally Once a day at HS avoid grape fruit September 13, 2014 1 tablet Zofran ODT [facility] [address]-84 8 MG Orally every 8 hrs as needed 1 tablet on the tongue and allow to dissolve Lancet Device NDC 0 Blood Glucose October 27, 2014 as directed Nebulizer ND 0 Jun 01, 2013 2 times per day PRN for SOB; Needed for lifetime Vitamin Z97-Mazbh Acid [facility] 590[address]-72466 500-400 MCG Orally Once a day 1 tablet Test strips NDC 0 Test Strips 4 times a day October 27, 2014 test blood sugar Glucometer ND 0 glucometer October 26, 2014 as directed Bactrim DS [facility] [address]-27 800-160 MG Orally 2 times a day Jan 19, 2015 Jan 26, 2015 1 tablet Procedures Procedure Coding System Code Date Office Visit, Est Pt., Level 3 CPT-4 70296 Jan 19, 2015 Vital Signs Date/Time: Jan 19, 2015 Temperature 98.4 F Weight 482.5 lbs Height 63 in BMI 85.46 Index Blood Pressure Diastolic 80 mmHg Blood Pressure Systolic 150 mmHg Cardiac Monitoring Heart Rate 120 bpm Results No Known Results Summary Purpose eClinicalWorks Submission
--- OUTSIDE RECORDS SUMMARY | 2016-08-25 06:43 | XMS REPORT ---
Author Author ZAINAB HESS [facility] eClinicalWorks Address Unknown Phone Unavailable Care Team Providers Care Dietitian Consultant Name Role Phone ZAINAB HESS CP Unavailable [...]
--- OUTSIDE RECORDS SUMMARY | 2016-08-25 06:43 | XMS REPORT ---
Author Author ZAINAB HESS [facility] eClinicalWorks Address Unknown Phone Unavailable Care Team Providers Care Process Tech Name Role Phone ZAINAB HESS CP Unavailable [...] Start Date End Date Status Dosage Lyrica [facility] [id number] 150 MG TAKE 2 CAPSULES BY MOUTH TWICE DAILY Results No Known Results Summary Purpose eClinicalWorks Submission
--- OUTSIDE RECORDS SUMMARY | 2016-08-25 06:44 | XMS REPORT ---
Author Author ZAINAB HESS eClinicalWorks Address Unknown Phone Unavailable Care Team Providers Care Civil Engineering Design Draftsperson Name Role Phone ZAINAB HESS CP Unavailable [...]
--- OUTSIDE RECORDS SUMMARY | 2016-08-25 06:44 | XMS REPORT ---
Author Author ZAINAB HESS eClinicalWorks Address Unknown Phone Unavailable Care Team Providers Care Video Game Programmer Name Role Phone ZAINAB HESS CP Unavailable [...]
--- OUTSIDE RECORDS SUMMARY | 2016-08-25 06:44 | XMS REPORT ---
Author Author ZAINAB HESS [facility] eClinicalWorks Address Unknown Phone Unavailable Care Team Providers Care Long Term Care Administrator Name Role Phone ZAINAB HESS CP Unavailable [...] Instructions Start Date End Date Status Dosage Loratadine [facility] [address]-02 10 MG Orally Once a day 1 tablet Pravastatin Sodium [facility] [address]-04 40 MG Orally Once a day at HS avoid grape fruit September 13, 2014 1 tablet Results No Known Results Summary Purpose eClinicalWorks Submission
--- OUTSIDE RECORDS SUMMARY | 2016-08-25 06:45 | XMS REPORT ---
Author Author LUCIE AKHTAR eClinicalWorks Address Unknown Phone Unavailable Care Team Providers Care Clocksmith Name Role Phone LUCIE AKHTAR Unavailable Allergies, [...] Z99.81 Active Problem Microalbuminuria R80.9 Active Assessment Dental examination Z01.20 Active Problem Obstructive sleep apnea G47.33 Active Problem Lymphedema I89.0 Active Problem Chronic diarrhea K52.9 Active Problem Hypertriglyceridemia E78.1 Active Problem Chronic nausea R11.0 Active Problem Primary insomnia F51.01 Active Medications Medication Code System Code Instructions Start Date End Date Status Dosage Metformin HCl [facility] 16939226883 1000 MG Orally Twice a day 1 tablet with meals Symbicort [facility] [address]-09 160-4.5 MCG/ACT Inhalation Twice a day Mar 16, 2015 1 puffs Pravastatin Sodium [facility] [address]-88 40 MG Orally Once a day at HS avoid grape fruit September 13, 2014 1 tablet Loratadine [facility] [address]-45 10 MG Orally Once a day 1 tablet Loperamide HCl [facility] 18530067745 2 MG take 2 capsule (4 mg) orally after 1st loose stool, followed by 1 cap after each subsequent loose stool not to exceed 16 mg/day, NovoLog Flexpen [facility] [address]-19 100 UNIT/ML Subcutaneous 3 times a day before meals September 16, 2014 15 units Zofran ODT [facility] 70499744559 8 MG 1 tablet on the tongue and allow to dissolve every 8 hrs as needed Orally Pen [place] [facility] [address]-80 31G X 6 MM Nov 17, 2014 as directed Vitamin S59-Dsbhl Acid [facility] 02[address]-91469 500-400 MCG Orally Once a day 1 tablet Ranitidine HCl [facility] 95271517141 150 MG TAKE 2 TABLETS BY MOUTH AT BEDTIME ProAir HFA [facility] [address]-90 108 (90 Base) MCG/ACT Inhalation every 4 hrs Mar 16, 2015 2 puffs as needed Glucometer ND 0 glucometer October 26, 2014 as directed Kaopectate Stool Softener ND 0 not defined Nebulizer ND 0 Jun 01, 2013 2 times per day PRN for SOB; Needed for lifetime Geodon [facility] [address]-77 20 MG Intramuscular Once a day 1 capsule with food Omeprazole [facility] 70531777664 40 MG TAKE 1 CAPSULE BY MOUTH EVERY DAY Bactrim DS [facility] [address]-70 800-160 MG Orally Twice a day Apr 04, 2015 Apr 14, 2015 1 tablet Lantus SoloStar [facility] [address]-96 100 UNIT/ML Subcutaneous Once a day 75-80 units Lisinopril [facility] [address]-89 40 MG Orally Once a day 1 tablet Lyrica [facility] [address]-13 150 MG Orally Twice a day September 16, 2014 1 capsule Lancets ND 0 Blood Glucose 4 times a day October 27, 2014 test blood sugar Ipratropium-Albuterol [facility] [address]-35 0.5-2.5 (3) MG/3ML Inhalation Four times a day, up to 6 doses per day 3 ml as needed Test strips NDC 0 Test Strips 4 times a day October 27, 2014 test blood sugar Lancet Device ND 0 Blood Glucose October 27, 2014 as directed Procedures Procedure Coding System Code Date INTRAORL-PERIAPICAL 1 FILM 47937 CPT-4 D0220 Apr 05, 2015 BITEWING - SINGLE FILM CPT-4 D0270 Apr 05, 2015 LTD ORAL EVALUATION - PROBLEM FOCUS CPT-4 D0140 Apr 05, 2015 Vital Signs Date/Time: Apr 05, 2015 Blood Pressure Diastolic 69 mmHg Blood Pressure Systolic 113 mmHg Height 63 in Results No Known Results Summary Purpose eClinicalWorks Submission
--- OUTSIDE RECORDS SUMMARY | 2016-08-25 06:45 | XMS REPORT ---
Author Author ZAINAB HESS eClinicalWorks Address Unknown Phone Unavailable Care Team Providers Care [employer] Name Role Phone ZAINAB HESS CP Unavailable [...]
--- OUTSIDE RECORDS SUMMARY | 2016-08-25 06:45 | XMS REPORT ---
Author Author ZAINAB HESS eClinicalWorks Address Unknown Phone Unavailable Care Team Providers Care Provider Contracting Consultant Name Role Phone ZAINAB HESS CP [...]
--- OUTSIDE RECORDS SUMMARY | 2016-08-25 06:45 | XMS REPORT ---
Author Author ZAINAB HESS eClinicalWorks Address Unknown Phone Unavailable Care Team Providers Care Sticker Operator Name Role Phone ZAINAB HESS CP [...] Instructions Start Date End Date Status Dosage ProAir HFA [facility] [address]-11 108 (90 Base) MCG/ACT Inhalation every 4 hrs Mar 16, 2015 2 puffs as needed Symbicort [facility] [address]-44 160-4.5 MCG/ACT Inhalation Twice a day Mar 16, 2015 1 puffs Results No Known Results Summary Purpose eClinicalWorks Submission
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
--- OUTSIDE RECORDS SUMMARY | 2016-08-25 06:45 | XMS REPORT ---
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 Active 276964402339 Problem Chronic tension-type headache, intractable G44.221 Active 416372502 Assessment Elevated AST (SGOT) R74.0 Dec, Active 509034276 Assessment Elevated alkaline phosphatase level R74.8 Dec, Active 984317519 Problem Low back pain M54.5 Active 362679632 Problem Anxiety F41.9 Active 64082008 Problem Type 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 Active 25477939 Problem Tinnitus of both ears H93.13 Active 9444420631205 Problem Chronic nausea R11.0 Active 024801106 Problem Obstructive sleep apnea G47.33 Active 00518228 Problem Microalbuminuria R80.9 Active 966783622 Problem Chronic diarrhea K52.9 Active 430467841 Problem Primary insomnia F51.01 Active 754042769 Problem Gastroesophageal reflux disease, esophagitis presence not specified K21.9 Active 464645863 Problem Lymphedema I89.0 Active 324001244 Problem Major depressive disorder, recurrent, unspecified F33.9 Active 332106889 Problem Hypertriglyceridemia E78.1 Active 753747469 Problem Type 2 diabetes mellitus with hyperglycemia E11.65 Active 25603091 ALLERGIES Unknown Allergies SOCIAL HISTORY No smoking Hx information available PLAN OF CARE VITAL SIGNS MEDICATIONS Unknown Medications RESULTS No Results PROCEDURES No Known procedures IMMUNIZATIONS No Known Immunizations
--- OUTSIDE RECORDS SUMMARY | 2016-08-25 06:45 | XMS REPORT ---
Author Author ZAINAB HESS Organization eClinicalWorks Address Unknown Phone Unavailable Care Team Providers Care [employer] Ax Developer Name Role Phone ZAINAB HESS CP Unavailable [...]
--- OUTSIDE RECORDS SUMMARY | 2016-08-25 06:46 | XMS REPORT ---
Author RUBEN Gramajo [facility] eClinicalWorks Address Unknown Phone Unavailable Care Team Providers Care Beadworker Name Role Phone RUBEN ISIDRO CP Unavailable Allergies No Known Allergies Problems [...] Instructions Start Date End Date Status Dosage UltiCare Mini Pen Burtrum [facility] 09704532494 31G X 6 MM USE DIRECTED Ibuprofen [facility] 38094692658 600 MG TAKE 1 TABLET BY MOUTH FOUR TIMES A DAY Montelukast Sodium [facility] 82812748349 10 MG TAKE 1 TABLET BY MOUTH EVERY DAY Ranitidine HCl [facility] 65080648444 150 MG TAKE 2 TABLETS BY MOUTH DAILY AT BEDTIME NovoLog [facility] [address]-62 100 UNIT/ML Subcutaneous 3 times a day June 22, [address] [facility] 0 Test Strips 4 times a day October 27, 2014 test blood sugar Lantus [facility] [address]-62 100 UNIT/ML Subcutaneous Twice a day June 22, [address] [facility] 90431386434 150 MG TAKE 2 CAPSULES BY MOUTH TWICE DAILY Lisinopril [facility] [address]-96 20 MG Orally not defined Azithromycin [facility] [address]-61 250 MG Orally Once a day Feb 16, 2016 Feb 18, [address] [facility] 30964620415 160-4.5 MCG/ACT Inhalation Twice a day [address] [facility] 95280623257 1000 MG TAKE 1 TABLET BY MOUTH WITH MEALS TWICE DAILY -DR ASKS THAT YOU MAKE AN APPOINTMENT Ipratropium [place] [facility] [address]-02 0.02 % Inhalation not defined Omeprazole [facility] 69719572633 40 MG TAKE 1 CAPSULE BY MOUTH EVERY DAY Pravastatin Sodium [facility] [address]-88 40 MG Orally Once a day [address] [facility] [address]-80 108 (90 Base) MCG/ACT Inhalation every 4 hrs 2 puffs as needed Insulin Syringe [facility] 8326-835855 31G X 5/16 4 times a day June 22, 2015 as directed Cyclobenzaprine HCl [facility] 13062636608 10 MG TAKE 1 TABLET BY MOUTH THREE TIMES DAILY FOR MUSCLE SPASM ORALLY Loratadine [facility] 13574376107 10 MG TAKE 1 TABLET BY MOUTH EVERY DAY Gemfibrozil [facility] 50555025743 600 MG Orally Twice a day [address] [facility] [address]-69 200 MG Orally every 12 hrs Feb 16, 2016 Feb 26, [address] [facility] 78064848913 2 MG TAKE 2 CAPSULES BY MOUTH AFTER FIRST LOOSE STOOL THEN TAKE 1 CAPSULE AFTER EACH LOOSE STOOL - MAX [address] [facility] [address]-29 20 mg Orally Once a day Feb 16, 2016 3 tabs for 1 day then decerase by 1/2 tab daily Results No Known Results Summary Purpose eClinicalWorks Submission
--- OUTSIDE RECORDS SUMMARY | 2016-08-25 06:47 | XMS REPORT ---
Author Author ZAINAB HESS eClinicalWorks Address Unknown Phone Unavailable Care Team Providers Care Violent Crimes Detective Name Role Phone ZAINAB HESS CP Unavailable [...]
--- OUTSIDE RECORDS SUMMARY | 2016-08-25 06:48 | XMS REPORT ---
Author Author [facility] eClinicalWorks Address Unknown Phone Unavailable Care Team Providers Care Conventions Assistant Name Role Phone [facility] CP Unavailable [...] Code Date [facility] CPT-4 S0280 Dec 07, 2014 Results No Known Results Summary Purpose eClinicalWorks Submission
--- OUTSIDE RECORDS SUMMARY | 2016-08-25 06:48 | XMS REPORT ---
Author Author ZAINAB HESS eClinicalWorks Address Unknown Phone Unavailable Care Team Providers Care Court Manager Name Role Phone ZAINAB HESS CP [...]
--- OUTSIDE RECORDS SUMMARY | 2016-08-25 06:48 | XMS REPORT ---
Author Author ZAINAB HESS eClinicalWorks Address Unknown Phone Unavailable Care Team Providers Care Founder Ceo & President Name Role Phone ZAINAB HESS CP Unavailable [...] Z99.81 Active Problem Microalbuminuria R80.9 Active Assessment Type 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 Active Assessment Upper respiratory infection J06.9 Active Problem Obstructive sleep apnea G47.33 Active Problem Lymphedema I89.0 Active Problem Chronic diarrhea K52.9 Active Problem Hypertriglyceridemia E78.1 Active Problem Chronic nausea R11.0 Active Problem Primary insomnia F51.01 Active Medications Medication Code System Code Instructions Start Date End Date Status Dosage Lancets [place] 0 Blood Glucose 4 times a day October 27, 2014 test blood sugar Geodon [facility] [address]-77 20 mg Orally Once a day 1 capsule with food Bactroban [facility] [address]-76 2 % Externally to infected skin areas Three times a day June 21, 2015 July 19, 2015 1 application to affected area Ranitidine HCl [facility] 37095413757 150 MG TAKE 2 TABLETS BY MOUTH AT BEDTIME Bactrim DS [facility] [address]-22 800-160 MG Orally Twice a day June 27, 2015 July 07, 2015 1 tablet Gemfibrozil [facility] [address]-38 600 MG Orally Twice a day 1 tablet Insulin Syringe [facility] 8326-336271 31G X 5/16 4 times a day June 22, 2015 as directed NovoLog [facility] [address]-23 100 UNIT/ML Subcutaneous 3 times a day June 22, 2015 15 units Ondansetron [facility] 10105567590 [address] ONE TABLET ON THE TONGUE AND ALLOW TO DISSOLVE EVERY 8 HOURS NEEDED Loperamide HCl [facility] 86316505440 2 MG TAKE 2 CAPSULES BY MOUTH AFTER FIRST LOOSE STOOL THEN TAKE 1 CAPSULE AFTER EACH LOOSE STOOL - MAX 8 PER DAY ProAir HFA [facility] [address]-17 108 (90 Base) MCG/ACT Inhalation every 4 hrs Mar 16, 2015 2 puffs as needed HydrOXYzine HCl [facility] [address]-51 10 MG Orally 3 times a day PRN May 02, 2015 1 tablet Glucometer ND 0 glucometer October 26, 2014 as directed Lyrica [facility] [address]-09 300 MG Orally Twice a day September 16, 2014 1 capsule Metformin HCl [facility] 93554077344 1000 MG TAKE 1 TABLET BY MOUTH WITH MEALS TWICE A DAY -NEED TO MAKE A FOLLOW UP VICKEY. Kaopectate Stool Softener NDC 0 not defined Lisinopril [facility] 03424559337 20 MG Orally Once a day 1 tablet Omeprazole [facility] 81093421713 40 MG TAKE 1 CAPSULE BY MOUTH EVERY DAY Test strips NDC 0 Test Strips 4 times a day October 27, 2014 test blood sugar [facility] [address]-42 31G X 6 MM Nov 17, 2014 as directed Ibuprofen [facility] 15089325065 600 MG TAKE 1 TABLET BY MOUTH THREE TIMES DAILY NEEDED Symbicort [facility] [address]-90 160-4.5 MCG/ACT Inhalation Twice a day Mar 16, 2015 1 puffs Pravastatin Sodium [facility] 69336356492 40 MG Orally Once a day at HS avoid grape fruit 1 tablet Lancet Device ND 0 Blood Glucose October 27, 2014 as directed Lantus [facility] [address]-02 100 UNIT/ML Subcutaneous Once a day June 22, 2015 75-80 units Montelukast Sodium [facility] 38256096022 10 MG TAKE 1 TABLET BY MOUTH EVERY DAY Loratadine [facility] 32234361532 10 MG TAKE 1 TABLET BY MOUTH EVERY DAY Depo-Provera [facility] [address]-10 150 MG/ML Intramuscular June 21, 2015 Nov 18, 2015 1 ml Procedures Procedure Coding System Code Date LAB [facility] CPT-4 NOBLL July 06, 2015 Office Visit, Est Pt., Level 3 CPT-4 60300 July 06, 2015 INFLUENZA ASSAY W/OPTIC CPT-4 83711 July 06, 2015 VENIPUNCT, ROUTINE* CPT-4 68729 July 06, 2015 Vital Signs Date/Time: July 06, 2015 Temperature 98.2 F Weight 480.0 lbs Height 63 in BMI 85.02 Index Blood Pressure Diastolic 79 mmHg Blood Pressure Systolic 140 mmHg Cardiac Monitoring Heart Rate 101 bpm Results Name Result Date Reference Range Unit Abnormality Flag TSH ----TSH 1.230 [id number] 0.450-4.500 uIU/mL CBC ----Basos 0 20150706 % ----MCV 95 19762088 79-97 fL ----Hematocrit 34.3 95472957 34.0-46.6 % ----Eos 2 13985106 % ----MCHC 32.9 25377856 31.5-35.7 g/dL ----Monocytes 4 97016027 % ----MCH 31.1 58387210 26.6-33.0 pg ----Lymphs 29 77654612 % ----Eos (Absolute) 0.2 83465038 0.0-0.4 x10E3/uL ----WBC 8.0 20845390 3.4-10.8 x10E3/uL ----Monocytes(Absolute) 0.4 34629187 0.1-0.9 x10E3/uL ----Lymphs (Absolute) 2.3 49625088 0.7-3.1 x10E3/uL ----Hemoglobin 11.3 39801104 11.1-15.9 g/dL ----Neutrophils (Absolute) 5.1 41053117 1.4-7.0 x10E3/uL ----RBC 3.63 70257510 3.77-5.28 x10E6/uL L ----Immature Grans (Abs) 0.0 64420350 0.0-0.1 x10E3/uL ----Immature Granulocytes 0 54253963 % ----Neutrophils 65 47132071 % ----Baso (Absolute) 0.0 11110031 0.0-0.2 x10E3/uL ----RDW 15.2 97200720 12.3-15.4 % ----Platelets 318 66903340 150-379 x10E3/uL INFLUENZA A & B (IN HOUSE) ----Exp date [id number] ----INFLUENZA A negative 20150706 ----INFLUENZA B negative 20150706 ----Control + 20150706 ----Lot # [id number] ROUTINE VENIPUNCTURE CMP ----Potassium, Serum 5.0 20150706 3.5-5.2 mmol/L ----Sodium, Serum 134 59822546 134-144 mmol/L ----BUN/Creatinine Ratio 31 20150706 9-23 H ----eGFR If Africn Am 137 37265574 >59 mL/min/1.73 ----eGFR If NonAfricn Am 119 [id number] >59 mL/min/1.73 ----Creatinine, Serum 0.52 99010165 0.57-1.00 mg/dL L ----BUN 16 20150706 6-24 mg/dL ----Glucose, Serum 240 79592620 65-99 mg/dL H ----AST (SGOT) 50 20150706 0-40 IU/L H ----Globulin, Total 2.7 20150706 1.5-4.5 g/dL ----ALT (SGPT) 30 20150706 0-32 IU/L ----A/G Ratio 1.5 20150706 1.1-2.5 ----Bilirubin, Total <0.2 84901355 0.0-1.2 mg/dL ----Alkaline Phosphatase, S 96 20150706 39-117 IU/L ----Carbon Dioxide, Total 24 20150706 18-29 mmol/L ----Calcium, Serum 9.5 59895226 8.7-10.2 mg/dL ----Protein, Total, Serum 6.7 20150706 6.0-8.5 g/dL ----Albumin, Serum 4.0 20150706 3.5-5.5 g/dL ----Chloride, Serum 92 20150706 97-108 mmol/L L Summary Purpose eClinicalWorks Submission
--- OUTSIDE RECORDS SUMMARY | 2016-08-25 06:49 | XMS REPORT ---
Author Author ZAINAB HESS eClinicalWorks Address Unknown Phone Unavailable Care Team Providers Care Prize Coordinator Name Role Phone ZAINAB HESS CP Unavailable [...] Tinnitus of both ears H93.13 Active Assessment Folliculitis L73.9 Active Problem Low back pain M54.5 Active Assessment Dysuria R30.0 Active Assessment Encounter for contraceptive management Z30.9 Active Problem Type 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 Active Problem Meralgia paresthetica, unspecified laterality G57.10 Active Problem Essential hypertension I10 Active Problem Anxiety F41.9 Active Problem Morbid obesity with alveolar hypoventilation E66.2 Active Problem 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 [address]-34 160-4.5 MCG/ACT Inhalation Twice a day Mar 16, 2015 1 puffs NovoLog [facility] [address]-10 100 UNIT/ML Subcutaneous 3 times a day June 22, 2015 15 units Glucometer [facility] 0 glucometer October 26, 2014 as directed Pen [place] [facility] [address]-35 31G X 6 MM Nov 17, 2014 as directed Kaopectate Stool Softener NDC 0 not defined Lantus [facility] [address]-10 100 UNIT/ML Subcutaneous Once a day June 22, 2015 75-80 units Bactroban [facility] [address]-11 2 % Externally to infected skin areas Three times a day June 21, 2015 July 19, 2015 1 application to affected area Depo-Provera [facility] [address]-67 150 MG/ML Intramuscular June 21, 2015 Nov 18, 2015 1 ml Geodon [facility] [address]-81 20 mg Orally Once a day 1 capsule with food Lisinopril [facility] 30322645517 20 MG Orally Once a day 1 tablet ProAir HFA [facility] [address]-84 108 (90 Base) MCG/ACT Inhalation every 4 hrs Mar 16, 2015 2 puffs as needed Lyrica [facility] [address]-26 300 MG Orally Twice a day September 16, 2014 1 capsule Ranitidine HCl [facility] 82910915364 150 MG TAKE 2 TABLETS BY MOUTH AT BEDTIME Ondansetron [facility] 907952980[address] ONE TABLET ON THE TONGUE AND ALLOW TO DISSOLVE EVERY 8 HOURS NEEDED HydrOXYzine HCl [facility] [address]-66 10 MG Orally 3 times a day PRN May 02, 2015 1 tablet Pravastatin Sodium [facility] 16086336039 40 MG Orally Once a day at HS avoid grape fruit 1 tablet Omeprazole [facility] 29302764128 40 MG TAKE 1 CAPSULE BY MOUTH EVERY DAY Lancets NDC 0 Blood Glucose 4 times a day October 27, 2014 test blood sugar Metformin HCl [facility] 60855012276 1000 MG TAKE 1 TABLET BY MOUTH WITH MEALS TWICE A DAY -NEED TO MAKE A FOLLOW UP VICKEY. Loperamide HCl [facility] 26139995976 2 MG TAKE 2 CAPSULES BY MOUTH AFTER FIRST LOOSE STOOL THEN TAKE 1 CAPSULE AFTER EACH LOOSE STOOL - MAX 8 PER DAY Insulin Syringe [facility] 8326-090088 31G X 5/16" 0.5 ML 4 times a day June as directed Montelukast Sodium [facility] 42519368694 10 MG TAKE 1 TABLET BY MOUTH EVERY DAY Loratadine [facility] 02919233793 10 MG TAKE 1 TABLET BY MOUTH EVERY DAY Ibuprofen [facility] 72070718739 600 MG TAKE 1 TABLET BY MOUTH THREE TIMES DAILY NEEDED Lancet Device NDC 0 Blood Glucose October 27, 2014 as directed Test strips NDC 0 Test Strips 4 times a day October 27, 2014 test blood sugar Procedures Procedure Coding System Code Date URINALYSIS, AUTO, W/O SCOPE CPT-4 75526 June 21, 2015 URINE TEST CPT-4 31699 June 21, 2015 GLYCATED HEMOGLOBIN TEST CPT-4 58329 June 21, 2015 THER/PROPH/DIAG INJ, SC/IM CPT-4 39696 June 21, 2015 DEPO PROVERA (150 MG/ML) CPT-4 J1050 June 21, 2015 Office Visit, Est Pt., Level 4 CPT-4 44731 June 21, 2015 Vital Signs Date/Time: June 21, 2015 Temperature 99.8 F Weight 476.1 lbs Height 63 in BMI 84.33 Index Blood Pressure Diastolic 84 mmHg Blood Pressure Systolic 136 mmHg Cardiac Monitoring Heart Rate 100 bpm Results No Known Results Summary Purpose eClinicalWorks Submission
--- OUTSIDE RECORDS SUMMARY | 2016-08-25 06:50 | XMS REPORT ---
Author Author ZAINAB HESS eClinicalWorks Address Unknown Phone Unavailable Care Team Providers Care Bmet Name Role Phone ZAINAB HESS CP Unavailable [...] Chronic tension-type headache, intractable G44.221 Active Assessment Hypoxia R09.02 Active Problem Type 2 diabetes mellitus with [...] Instructions Start Date End Date Status Dosage Nystatin [facility] [address]-32 321437 UNIT/GM Externally Twice a day Jan 02, 2016 1 application to affected area UltiCare Mini Pen [place] [facility] 73656667058 31G X 6 MM USE DIRECTED Ranitidine HCl [facility] 50050938466 150 MG TAKE 2 TABLETS BY MOUTH DAILY AT BEDTIME Test strips NDC 0 Test Strips 4 times a day October 27, 2014 test blood sugar Lyrica [facility] 98070328049 150 MG TAKE 2 CAPSULES BY MOUTH TWICE DAILY Ibuprofen [facility] 24288604804 600 MG TAKE 1 TABLET BY MOUTH FOUR TIMES A DAY Symbicort [facility] 45210421062 160-4.5 MCG/ACT Inhalation Twice a day 1 puffs Ondansetron [facility] 60702090981 [address] ONE TABLET ON THE TONGUE AND ALLOW TO DISSOLVE EVERY 8 HOURS NEEDED Lantus [facility] [address]-55 100 UNIT/ML Subcutaneous Twice a day June 22, 2015 50 units Omeprazole [facility] 87096807172 40 MG TAKE 1 CAPSULE BY MOUTH EVERY DAY Insulin Syringe [facility] 8326-961041 31G X 5/16 4 times a day June 22, 2015 as directed Gemfibrozil [facility] 97842663246 600 MG Orally Twice a day 1 tablet [facility] [address]-05 5-325 MG Orally every 6 hrs 1 tablet as needed Montelukast Sodium [facility] 46931271808 10 MG TAKE 1 TABLET BY MOUTH EVERY DAY Metformin HCl [facility] 49184174937 1000 MG TAKE 1 TABLET BY MOUTH WITH MEALS TWICE DAILY -DR ASKS THAT YOU MAKE AN APPOINTMENT [facility] [address]-32 5-325 MG Orally every 6 hrs 1 tablet as needed NovoLog [facility] [address]-02 100 UNIT/ML Subcutaneous 3 times a day June 22, 2015 17 units Cyclobenzaprine HCl [facility] 68188350243 10 MG TAKE 1 TABLET BY MOUTH THREE TIMES DAILY FOR MUSCLE SPASM ORALLY Loratadine [facility] 34420142933 10 MG TAKE 1 TABLET BY MOUTH EVERY DAY Loperamide HCl [facility] 82011918105 2 MG TAKE 2 CAPSULES BY MOUTH AFTER FIRST LOOSE STOOL THEN TAKE 1 CAPSULE AFTER EACH LOOSE STOOL - MAX 8 PER DAY Procedures Procedure Coding System Code Date No Charge CPT-4 24881 Feb 13, 2016 MEASURE BLOOD OXYGEN LEVEL CPT-4 43478 Feb 13, 2016 Vital Signs Date/Time: Feb 13, 2016 Cardiac Monitoring Heart Rate 108 bpm Weight 459 lbs Height 63 in BMI 81.30 Index Oximetry w/ oxygen:88 % Blood Pressure Diastolic 91 mmHg Blood Pressure Systolic 152 mmHg Results No Known Results Summary Purpose eClinicalWorks Submission
--- OUTSIDE RECORDS SUMMARY | 2016-08-25 06:50 | XMS REPORT | CCD ---
Author Author ANDREW CORONA Organization Unknown Address [address] [facility] [address] [place], [place] [id number] Care Team Providers Care Property Field Adjuster Name Role Phone ACUNA, BRIDGET DO Attphys ACUNA, BRIDGET DO Prisurg Vital Signs Unknown or Not Available. Allergies Allergy Code Allergy Type Reaction Status NO KNOWN DRUG ALLERGIES - NKDA 0 Drug allergy Active Procedures Unknown or Not Available. History of Immunizations Immunization Code Date influenza, split (incl. purified surface antigen) 15 03/13/2011 pneumococcal polysaccharide PPV23 33 02/14/2012 Tdap 115 01/30/2007 Influenza, seasonal, injectable 141 01/31/2012 Problems Unknown or Not Available. Results Unknown or Not Available. Active Medications Unknown or Not Available. Medications Administered During Visit Unknown or Not Available. Encounters Encounter Diagnosis Diagnosis Code Start Date Laceration of finger [id number] 05/13/2015 Social History Smoking Status Code Start Date End Date Never smoker [id number] Patient Decision Aids Unknown or Not Available. Discharge Instructions You were admitted to [facility] on 05/13/2015 14:36 with a principal diagnosis of Laceration without foreign body of right index finger with damage to nail, initial encounter You were discharged from [facility] on 05/13/2015 16:22 Should you have any questions prior to discharge, please contact a member of your healthcare team. If you have left the hospital and have any questions, please contact your primary care physician. Chief Complaint and Reason For Visit Chief Complaint Date of Onset CHEST PAIN DOG BITE Function Status Unknown or Not Available. Plan of Care Unknown or Not Available. Referral/Transition of Care Unknown or Not Available.
--- OUTSIDE RECORDS SUMMARY | 2016-08-25 06:50 | XMS REPORT ---
Author Author ZAINAB HESS [facility] eClinicalWorks Address Unknown Phone Unavailable Care Team Providers Care Stud Setter Name Role Phone ZAINAB HESS CP Unavailable [...]
--- OUTSIDE RECORDS SUMMARY | 2016-08-25 06:50 | XMS REPORT ---
Author Author ZAINAB HESS [facility] eClinicalWorks Address Unknown Phone Unavailable Care Team Providers Care Job Captain Name Role Phone ZAINAB HESS CP Unavailable [...]
--- OUTSIDE RECORDS SUMMARY | 2016-08-25 06:50 | XMS REPORT ---
Author Author ZAINAB HESS eClinicalWorks Address Unknown Phone Unavailable Care Team Providers Care Administrative Support Specialist Name Role Phone ZAINAB HESS CP Unavailable [...]
--- OUTSIDE RECORDS SUMMARY | 2016-08-25 06:50 | XMS REPORT ---
Author Author ZAINAB HESS eClinicalWorks Address Unknown Phone Unavailable Care Team Providers Care Distributor Sales Consultant Name Role Phone ZAINAB HESS CP [...]
--- OUTSIDE RECORDS SUMMARY | 2016-08-25 06:51 | XMS REPORT ---
Author Author ZAINAB HESS eClinicalWorks Address Unknown Phone Unavailable Care Team Providers Care Induction Heat Treater Name Role Phone ZAINAB HESS CP Unavailable [...] Z99.81 Active Problem Microalbuminuria R80.9 Active Assessment Well woman exam (no gynecological exam) Z00.00 Active Assessment Dysuria R30.0 Active Problem Obstructive sleep apnea G47.33 Active Problem Lymphedema I89.0 Active Problem Chronic diarrhea K52.9 Active Problem Hypertriglyceridemia E78.1 Active Problem Chronic nausea R11.0 Active Problem Primary insomnia F51.01 Active Medications Medication Code System Code Instructions Start Date End Date Status Dosage Loratadine [facility] [address]-75 10 MG Orally Once a day 1 tablet Pen Armstrong [facility] [address]-80 31G X 6 MM Nov 17, 2014 as directed Symbicort [facility] [address]-93 160-4.5 MCG/ACT Inhalation Twice a day Mar 16, 2015 1 puffs ProAir HFA [facility] [address]-36 108 (90 Base) MCG/ACT Inhalation every 4 hrs Mar 16, 2015 2 puffs as needed Ipratropium-Albuterol [facility] [address]-38 0.5-2.5 (3) MG/3ML Inhalation Four times a day, up to 6 doses per day 3 ml as needed Montelukast Sodium [facility] 10961657169 10 MG TAKE 1 TABLET BY MOUTH EVERY DAY Vitamins [facility] [address]-59 Orally Once a day 1 tablet NovoLog Flexpen [facility] [address]-56 100 UNIT/ML Subcutaneous 3 times a day before meals September 16, 2014 15 units Ranitidine HCl [facility] 96901465395 150 MG TAKE 2 TABLETS BY MOUTH AT BEDTIME Test strips NDC 0 Test Strips 4 times a day October 27, 2014 test blood sugar Geodon [facility] [address]-39 20 MG Intramuscular Once a day 1 capsule with food Ibuprofen [facility] 55189039120 600 MG Orally Three times a day 1 tablet as needed Cyanocobalamin [facility] [address]-23 1000 MCG Orally Once a day 1 tablet Chlorhexidine [facility] [address]-22 4 once weekly- wash for 15 seconds, avoid face, head and genitials October 14, 2014 as directed Lisinopril [facility] [address]-38 40 MG Orally Once a day 1 tablet Pravastatin Sodium [facility] [address]-55 40 MG Orally Once a day at HS avoid grape fruit September 13, 2014 1 tablet Lyrica [facility] [address]-33 150 MG Orally Three times a day September 16, 2014 1 capsule Depo-Provera [facility] [address]-99 150 MG/ML Intramuscular 1 ml Lantus SoloStar [facility] [address]-00 100 UNIT/ML Subcutaneous Once a day 75-80 units Loperamide HCl [facility] 69908737771 2 MG take 2 capsule (4 mg) orally after 1st loose stool, followed by 1 cap after each subsequent loose stool not to exceed 16 mg/day, Metformin HCl [facility] 31645924733 1000 MG TAKE 1 TABLET BY MOUTH WITH MEALS TWICE A DAY Lancet Device NDC 0 Blood Glucose October 27, 2014 as directed Omeprazole [facility] 90666652801 40 MG TAKE 1 CAPSULE BY MOUTH EVERY DAY Glucometer NDC 0 glucometer October 26, 2014 as directed Zofran ODT [facility] 21927082464 8 MG 1 tablet on the tongue and allow to dissolve every 8 hrs as needed Orally Kaopectate Stool Softener NDC 0 not defined Lancets NDC 0 Blood Glucose 4 times a day October 27, 2014 test blood sugar Vitamin F38-Pjncp Acid [facility] 77102-58601 500-400 MCG Orally Once a day 1 tablet Nebulizer NDC 0 Jun 01, 2013 2 times per day PRN for SOB; Needed for lifetime Procedures Procedure Coding System Code Date Preventive Care Est Pt. Age 40-64 CPT-4 19613 Apr 20, 2015 URINALYSIS, AUTO, W/O SCOPE CPT-4 63927 Apr 20, 2015 Vital Signs Date/Time: Apr 20, 2015 Temperature 97.6 F Weight 471.5 lbs Height 63 in BMI 83.51 Index Blood Pressure Diastolic 68 mmHg Blood Pressure Systolic 108 mmHg Cardiac Monitoring Heart Rate 94 bpm Results Name Result Date Reference Range Unit Abnormality Flag UA W/CULTURE IF INDICATED (IN HOUSE) ----PRISCILLA Negative 20150420 ----NIT Negative 20150420 ----SG 1.015 20150420 ----KET Negative [id number] ----BASSEM Negative [id number] ----GLU Negative [id number] ----Odor None [id number] ----pH 7.0 20150420 ----BLO Trace-intact 20150420 ----URO 0.2 20150420 ----Protein 1+ 20150420 ----Lot # [id number] ----Exp date [id number] ----Clarity Slightly Cloudy [id number] ----Color Yellow [id number] Summary Purpose eClinicalWorks Submission
--- OUTSIDE RECORDS SUMMARY | 2016-08-25 06:51 | XMS REPORT ---
Author Author ZAINAB HESS Organization e[employer] Address Unknown Phone Unavailable Care Team Providers Care Customer Experience Specialist Name Role Phone ZAINAB HESS CP [...]
--- OUTSIDE RECORDS SUMMARY | 2016-08-25 06:51 | XMS REPORT ---
Author ZAINAB Schultz eClinicalWorks Address Unknown Phone Unavailable Care Team Providers Care Floor Cashier Name Role Phone ZAINAB HESS CP Unavailable [...] Tinnitus of both ears H93.13 Active Assessment Low back pain M54.5 Active Problem Low back pain M54.5 Active Assessment Morbid obesity with alveolar hypoventilation E66.2 Active Assessment Vaginal bleeding N93.9 Active Problem Type 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 Active Problem Meralgia paresthetica, unspecified laterality G57.10 Active Problem Essential hypertension I10 Active Problem Anxiety F41.9 Active Problem Morbid obesity with alveolar hypoventilation E66.2 Active Problem 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 Active Problem Microalbuminuria R80.9 Active Assessment Exposure to strep throat Z20.818 Active Assessment Folliculitis L73.9 Active Problem Obstructive sleep apnea G47.33 Active Problem Lymphedema I89.0 Active Problem Chronic diarrhea K52.9 Active Problem Hypertriglyceridemia E78.1 Active Problem Chronic nausea R11.0 Active Problem Primary insomnia F51.01 Active Medications Medication Code System Code Instructions Start Date End Date Status Dosage Gemfibrozil [facility] [address]-47 600 MG Orally Twice a day 1 tablet Montelukast Sodium [facility] 01815962602 10 MG TAKE 1 TABLET BY MOUTH EVERY DAY ProAir HFA [facility] 20627634495 108 (90 Base) MCG/ACT Inhalation every 4 hrs 2 puffs as needed Chlorhexidine [facility] [address]-17 4 once weekly- wash for 15 seconds, avoid face, head and genitials October 14, 2014 as directed Ranitidine HCl [facility] 97975237186 150 MG TAKE 2 TABLETS BY MOUTH AT BEDTIME Glucometer ND 0 glucometer October 26, 2014 as directed Symbicort [facility] [address]-79 160-4.5 MCG/ACT Inhalation Twice a day Mar 16, 2015 1 puffs Loratadine [facility] 64234304425 10 MG TAKE 1 TABLET BY MOUTH EVERY DAY Lyrica [facility] [address]-66 300 MG Orally Twice a day September 16, 2014 1 capsule Insulin Syringe [facility] 8326-817805 31G X 5/16 4 times a day June 22, 2015 as directed Ibuprofen [facility] [address]-14 600 MG Orally 4 times a day 1 tablet as needed Lisinopril [facility] 18530159101 20 MG Orally Once a day 1 tablet HydrOXYzine HCl [facility] [address]-05 10 MG Orally 3 times a day PRN May 02, 2015 1 tablet Test strips ND 0 Test Strips 4 times a day October 27, 2014 test blood sugar Kaopectate Stool Softener NDC 0 not defined Depo-Provera [facility] [address]-11 150 MG/ML Intramuscular June 21, 2015 Nov 18, 2015 1 ml Omeprazole [facility] 48427109497 40 MG TAKE 1 CAPSULE BY MOUTH EVERY DAY Geodon [facility] [address]-09 20 mg Orally Once a day 1 capsule with food Depo-Provera [facility] [address]-80 150 MG/ML Intramuscular 1 ml Lancets NDC 0 Blood Glucose 4 times a day October 27, 2014 test blood sugar Pen [place] [facility] [address]-59 31G X 6 MM Nov 17, 2014 as directed Metformin HCl [facility] 24835896304 1000 MG TAKE 1 TABLET BY MOUTH WITH MEALS TWICE A DAY -YOUR ASKS YOU TO MAKE AN APPOINTMENT Vitamins [facility] [address]-18 Orally Once a day 1 tablet Nebulizer ND 0 Jun 01, 2013 2 times per day PRN for SOB; Needed for lifetime Bactrim DS [facility] [address]-39 800-160 MG Orally Twice a day June 27, 2015 1 tablet Loperamide HCl [facility] 69220725333 2 MG TAKE 2 CAPSULES BY MOUTH AFTER FIRST LOOSE STOOL THEN TAKE 1 CAPSULE AFTER EACH LOOSE STOOL - MAX 8 PER DAY Ipratropium-Albuterol [facility] [address]-32 0.5-2.5 (3) MG/3ML Inhalation Four times a day, up to 6 doses per day 3 ml as needed Vitamin H70-Tqpny Acid [facility] 06[address]-06179 500-400 MCG Orally Once a day 1 tablet NovoLog [facility] [address]-93 100 UNIT/ML Subcutaneous 3 times a day June 22, 2015 15 units Lancet Device [facility] 0 Blood Glucose October 27, 2014 as directed Cyanocobalamin [facility] [address]-08 1000 MCG Orally Once a day 1 tablet Ondansetron [facility] 93370142207 [address] ONE TABLET ON THE TONGUE AND ALLOW TO DISSOLVE EVERY 8 HOURS NEEDED Cyclobenzaprine HCl [facility] [address]-43 10 mg Orally Three times a day as needed for muscle spasm July 26, 2015 1 tablet Lantus [facility] [address]-37 100 UNIT/ML Subcutaneous Once a day June 22, 2015 75-80 units Pravastatin Sodium [facility] 42629584534 40 MG Orally Once a day at HS avoid grape fruit 1 tablet Procedures Procedure Coding System Code Date STREP A ASSAY W/OPTIC CPT-4 77270 July 26, 2015 Office Visit, Est Pt., Level 4 CPT-4 44480 July 26, 2015 MEASURE BLOOD OXYGEN LEVEL CPT-4 52814 July 26, 2015 Vital Signs Date/Time: July 26, 2015 Temperature 98.3 F Weight 472.0 lbs Height 63 in Oximetry 89 % Blood Pressure Diastolic 65 mmHg Blood Pressure Systolic 149 mmHg Cardiac Monitoring Heart Rate 104 bpm BMI 83.60 Index Results Name Result Date Reference Range Unit Abnormality Flag STREP A (IN HOUSE) ----STREP A negative [id number] ----Control + [id number] ----Lot # [id number] ----Exp date 02/10/201720150726 Summary Purpose eClinicalWorks Submission
--- OUTSIDE RECORDS SUMMARY | 2016-08-25 06:51 | XMS REPORT ---
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 Active 385096459528 Problem Chronic tension-type headache, intractable G44.221 Active 947018974 Problem Low back pain M54.5 Active 319744330 Problem Anxiety F41.9 Active 02479045 Problem Type 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 Active 24041758 Problem Tinnitus of both ears H93.13 Active 1241757650077 Problem Chronic nausea R11.0 Active 592465915 Problem Obstructive sleep apnea G47.33 Active 15595851 Problem Microalbuminuria R80.9 Active 683106227 Problem Chronic diarrhea K52.9 Active 576792430 Problem Primary insomnia F51.01 Active 082765686 Problem Gastroesophageal reflux disease, esophagitis presence not specified K21.9 Active 819235302 Problem Lymphedema I89.0 Active 291125081 Problem Major depressive disorder, recurrent, unspecified F33.9 Active 492709365 Problem Hypertriglyceridemia E78.1 Active 027069115 Problem Type 2 diabetes mellitus with hyperglycemia E11.65 Active 37661352 ALLERGIES Unknown Allergies SOCIAL HISTORY No smoking Hx information available PLAN OF CARE VITAL SIGNS MEDICATIONS Medication Instructions Dosage Frequency Start Date End Date Duration Status Cyclobenzaprine HCl 10 mg Orally Three times a day as needed for muscle spasm 1 tablet Jul, Active Lantus 100 UNIT/ML Subcutaneous Twice a day 50 units 12h 10 Jun, 2015 30 Active Symbicort 160-4.5 MCG/ACT Inhalation Twice a day 1 puffs 12h Active RESULTS No Results PROCEDURES No Known procedures IMMUNIZATIONS No Known Immunizations
--- OUTSIDE RECORDS SUMMARY | 2016-08-25 06:51 | XMS REPORT ---
Author Author ZAINAB HESS [employer]ClinicalWorks Address Unknown Phone Unavailable Care Team Providers Care Supervisor Dry Cleaning Name Role Phone ZAINAB HESS CP Unavailable [...]
--- OUTSIDE RECORDS SUMMARY | 2016-08-25 06:52 | XMS REPORT ---
Author Author ZAINAB HESS [facility] eClinicalWorks Address Unknown Phone Unavailable Care Team Providers Care Teacher Of The Handicapped Name Role Phone ZAINAB HESS CP Unavailable [...]
--- OUTSIDE RECORDS SUMMARY | 2016-08-25 06:52 | XMS REPORT ---
Author Author [facility], [facility] eClinicalWorks Address Unknown Phone Unavailable Care Team Providers Care Gunner'S Mate M Name Role Phone [facility], [facility] CP Unavailable Allergies No Known Allergies Problems [...] Code Date HEALTH PROMOTION CPT-4 S0280 Dec 08, 2014 Results No Known Results Summary Purpose eClinicalWorks Submission
--- OUTSIDE RECORDS SUMMARY | 2016-08-25 06:52 | XMS REPORT ---
Author Author ZAINAB HESS [employer]Clinical[employer] Address Unknown Phone Unavailable Care Team Providers Care Heading Maker Name Role Phone ZAINAB HESS CP Unavailable [...]
--- OUTSIDE RECORDS SUMMARY | 2016-08-25 06:52 | XMS REPORT ---
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
--- OUTSIDE RECORDS SUMMARY | 2016-08-25 06:52 | XMS REPORT ---
Author Author ZAINAB HESS [employer]Clinical[employer] Address Unknown Phone Unavailable Care Team Providers Care Faculty Research Physician Name Role Phone ZAINAB HESS CP Unavailable [...]
--- OUTSIDE RECORDS SUMMARY | 2016-08-25 06:53 | XMS REPORT ---
Author Author ZAINAB HESS [employer] Address Unknown Phone Unavailable Care Team Providers Care Furnace Fitter Name Role Phone ZAINAB HESS CP Unavailable [...] Instructions Start Date End Date Status Dosage NovoLog [facility] [address]-71 100 UNIT/ML Subcutaneous 3 times a day June 22, 2015 17 units Lantus [facility] [address]-76 100 UNIT/ML Subcutaneous Twice a day June 22, 2015 50 units Results No Known Results Summary Purpose eClinicalWorks Submission
--- OUTSIDE RECORDS SUMMARY | 2016-08-25 06:53 | XMS REPORT ---
Author Author [facility], [facility] eClinicalWorks Address Unknown Phone Unavailable Care Team Providers Care Distribution Analyst Name Role Phone [facility], [facility] CP Unavailable Allergies No Known [...] Date PATIENT AND FAMILY SUPPORT CPT-4 S0280 Apr 03, 2015 Results No Known Results Summary Purpose eClinicalWorks Submission
--- OUTSIDE RECORDS SUMMARY | 2016-08-25 06:53 | XMS REPORT ---
Author Author [facility], [facility] eClinicalWorks Address Unknown Phone Unavailable Care Team Providers Care Outdoor Adventure Instructor Name Role Phone [facility], [facility] CP Unavailable Allergies No Known Allergies [...] System Code Date CARE COORDINATION CPT-4 S0281 Dec 22, 2014 Results No Known Results Summary Purpose eClinicalWorks Submission
--- OUTSIDE RECORDS SUMMARY | 2016-08-25 06:53 | XMS REPORT ---
Author Author ZAINAB HESS [facility] eClinicalWorks Address Unknown Phone Unavailable Care Team Providers Care Artillery Maintenance Supervisor Name Role Phone ZAINAB HESS CP [...]
--- OUTSIDE RECORDS SUMMARY | 2016-08-25 06:54 | XMS REPORT ---
Author Author ZAINAB HESS [facility] eClinicalWorks Address Unknown Phone Unavailable Care Team Providers Care Ship Steward Name Role Phone ZAINAB HESS CP Unavailable [...]
--- OUTSIDE RECORDS SUMMARY | 2016-08-25 06:54 | XMS REPORT ---
Author Author ZAINAB HESS [employer]ClinicalWorks Address Unknown Phone Unavailable Care Team Providers Care Security Officers And Guards Name Role Phone ZAINAB HESS CP Unavailable [...]
--- OUTSIDE RECORDS SUMMARY | 2016-08-25 06:54 | XMS REPORT ---
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 Active 706664473886 Problem Chronic tension-type headache, intractable G44.221 Active 330245780 Assessment Recurrent cellulitis L03.90 Dec, Active 020504157 Assessment Candidal intertrigo B37.2 Dec, Active 550391801 Problem Low back pain M54.5 Active 931503070 Problem Anxiety F41.9 Active 24650187 Problem Type 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 Active 00877113 Problem Tinnitus of both ears H93.13 Active 5230792397450 Problem Chronic nausea R11.0 Active 712830110 Problem Obstructive sleep apnea G47.33 Active 13528296 Problem Microalbuminuria R80.9 Active 810424867 Problem Chronic diarrhea K52.9 Active 947855905 Problem Primary insomnia F51.01 Active 256180187 Problem Gastroesophageal reflux disease, esophagitis presence not specified K21.9 Active 584864914 Problem Lymphedema I89.0 Active 295348164 Problem Major depressive disorder, recurrent, unspecified F33.9 Active 225028473 Assessment Encounter for Depo-Provera contraception Z30.42 Dec, Active 115565042 Problem Hypertriglyceridemia E78.1 Active 695377859 Problem Type 2 diabetes mellitus with hyperglycemia E11.65 Active 09127318 ALLERGIES Substance Reaction Event Type Date Status Amitriptyline HCl Unknown Drug Allergy Dec, Active Hydrocodone-acetaminophen 7.5-500 Mg Tablet Violated narcotics contract Non Drug Allergy Dec, Active SOCIAL HISTORY No smoking Hx information available PLAN OF CARE VITAL SIGNS Height 63 in 2016-01-02 Weight 459 lbs 2016-01-02 Heart Rate 100 bpm 2016-01-02 Respiratory Rate 24 2016-01-02 BMI 81.30 kg/m2 2016-01-02 Blood pressure systolic 122 mmHg 2016-01-02 Blood pressure diastolic 82 mmHg 2016-01-02 MEDICATIONS Medication Instructions Dosage Frequency Start Date End Date Duration Status NovoLog 100 UNIT/ML Subcutaneous 3 times a day 17 units 8h Jun, Active Metformin HCl 1000 MG TAKE 1 TABLET BY MOUTH WITH MEALS TWICE A DAY -YOUR ASKS YOU TO MAKE AN APPOINTMENT 30 Active Gemfibrozil 600 MG Orally Twice a day 1 tablet 12h Active Lyrica 150 MG TAKE 2 CAPSULES BY MOUTH TWICE DAILY 30 Active Symbicort 160-4.5 MCG/ACT Inhalation Twice a day 1 puffs 12h Active Loratadine 10 MG TAKE 1 TABLET BY MOUTH EVERY DAY 30 Active Test strips Test Strips test blood sugar 6h Oct, Active Insulin Syringe 31G X 5/16 as directed 6h Jun, Active Ibuprofen 600 MG TAKE 1 TABLET BY MOUTH FOUR TIMES A DAY 30 Active Omeprazole 40 MG TAKE 1 CAPSULE BY MOUTH EVERY DAY 30 Active Nystatin 933284 UNIT/GM Externally Twice a day 1 application to affected area 12h Dec, Active Ranitidine HCl 150 MG TAKE 2 TABLETS BY MOUTH DAILY AT BEDTIME 30 Active Montelukast Sodium 10 MG TAKE 1 TABLET BY MOUTH EVERY DAY 30 Active Bactrim DS 800-160 MG Orally Twice a day 1 tablet 12h Dec, Jan, 14 days Active RESULTS Name Result Date Reference Range TEST, URINE (IN HOUSE) 2016-01-02 RESULTS negative Lot # [id number] Control + Exp date TSH 2016-01-02 TSH 2.880 0.450-4.500 CBC 2016-01-02 WBC 7.8 3.4-10.8 RBC 4.06 3.77-5.28 Hemoglobin 12.2 11.1-15.9 Hematocrit 38.0 34.0-46.6 MCV 94 79-97 MCH 30.0 26.6-33.0 MCHC 32.1 31.5-35.7 RDW 15.1 12.3-15.4 Platelets 330 150-379 Neutrophils 63 Lymphs 28 Monocytes 6 Eos 2 Basos 0 Neutrophils (Absolute) 4.9 1.4-7.0 Lymphs (Absolute) 2.2 0.7-3.1 Monocytes(Absolute) 0.5 0.1-0.9 Eos (Absolute) 0.2 0.0-0.4 Baso (Absolute) 0.0 0.0-0.2 Immature Granulocytes 1 Immature Grans (Abs) 0.1 0.0-0.1 LIPID PANEL 2016-01-02 Cholesterol, Total 204 100-199 Triglycerides 627 0-149 HDL Cholesterol 34 >39 VLDL Cholesterol Ryan 5-40 LDL Cholesterol Calc 0-99 CMP 2016-01-02 Glucose, Serum 437 65-99 BUN 17 6-24 Creatinine, Serum 0.65 0.57-1.00 eGFR If NonAfricn Am 110 >59 eGFR If Africn Am 127 >59 BUN/Creatinine Ratio 26 9-23 Sodium, Serum 136 134-144 Potassium, Serum 4.8 3.5-5.2 Chloride, Serum 92 97-108 Carbon Dioxide, Total 22 18-29 Calcium, Serum 9.1 8.7-10.2 Protein, Total, Serum 6.7 6.0-8.5 Albumin, Serum 3.7 3.5-5.5 Globulin, Total 3.0 1.5-4.5 A/G Ratio 1.2 1.1-2.5 Bilirubin, Total <0.2 0.0-1.2 Alkaline Phosphatase, S 120 39-117 AST (SGOT) 33 0-40 ALT (SGPT) 17 0-32 PROCEDURES Procedure Date Ordered Related Diagnosis Body Site [facility] Jan 02, 2016 Office Visit, Est Pt., Level 3 Jan 02, 2016 DEPO PROVERA (150 MG/ML) Jan 02, 2016 URINE TEST Jan 02, 2016 VENIPUNCT, ROUTINE* Jan 02, 2016 THER/PROPH/DIAG INJ, SC/IM Jan 02, 2016 IMMUNIZATIONS Vaccine Route Administration Date Status DEPO PROVERA (150 MG/ML) IM Intramuscular Jan 02, 2016 Administered
--- OUTSIDE RECORDS SUMMARY | 2016-08-25 06:54 | XMS REPORT ---
Author Author ZAINAB HESS [facility] eClinicalWorks Address Unknown Phone Unavailable Care Team Providers Care Intrusion Analyst Name Role Phone ZAINAB HESS Unavailable Allergies No Known Allergies Problems Problem [...] Start Date End Date Status Dosage Lyrica [facility] [address]-34 300 MG Orally Twice a day September 16, 2014 1 capsule Results No Known Results Summary Purpose eClinicalWorks Submission
--- OUTSIDE RECORDS SUMMARY | 2016-08-25 06:54 | XMS REPORT ---
Author Author LIS JENNINGS Organization eClinicalWorks Address Unknown Phone Unavailable Care Team Providers Care Roll Up Machine Operator Name Role Phone LIS JENNINGS CP Unavailable Allergies No Known Allergies Problems [...] Instructions Start Date End Date Status Dosage HydrOXYzine HCl [facility] [address]-46 10 MG Orally 3 times a day PRN May 02, 2015 1 tablet Results No Known Results Summary Purpose eClinicalWorks Submission
--- OUTSIDE RECORDS SUMMARY | 2016-08-25 06:54 | XMS REPORT ---
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 Active Problem Chronic nausea R11.0 Active Problem Obstructive sleep apnea G47.33 Active Problem Microalbuminuria R80.9 Active Problem Lymphedema I89.0 Active Problem Chronic diarrhea K52.9 Active Problem Hypertriglyceridemia E78.1 Active Medications Medication Code System Code Instructions Start Date End Date Status Dosage [place] [facility] [address]-35 5-325 MG Orally every 6 hrs Feb 06, 2015 Feb 09, 2015 1 tablet as needed Amoxicillin [facility] [address]-43 500 MG Orally Three times a day Feb 06, 2015 Feb 16, 2015 1 capsule Procedures Procedure Coding System Code Date INTRAORL-PERIAPICAL 1 FILM 33030 CPT-4 D0220 Feb 06, 2015 LTD ORAL EVALUATION - PROBLEM FOCUS CPT-4 D0140 Feb 06, 2015 Vital Signs Date/Time: Feb 06, 2015 Blood Pressure Diastolic 87 mmHg Blood Pressure Systolic 147 mmHg Cardiac Monitoring Heart Rate 102 bpm Results No Known Results Summary Purpose eClinicalWorks Submission
--- OUTSIDE RECORDS SUMMARY | 2016-08-25 06:56 | XMS REPORT ---
Author Author ZAINAB HESS [facility] e[employer] Address Unknown Phone Unavailable Care Team Providers Care Delivery Supervisor Name Role Phone ZAINAB HESS CP [...] Active Problem Esophageal reflux 530.81 Active Assessment Hyperlipidemia 272.4 Active Assessment Diarrhea 787.91 Active Problem Essential hypertension, benign 401.1 Active Problem Meralgia paresthetica 355.1 Active Problem Major depressive disorder, recurrent episode, moderate 296.32 Active Problem Morbid obesity 278.01 Active Problem Diabetes with neurological manifestations, type II or unspecified type , not stated as uncontrolled 250.60 Active Problem Anxiety state, unspecified 300.00 Active Medications No Known Medications Procedures Procedure Coding System Code Date VENIPUNCT, ROUTINE* CPT-4 65795 Dec 01, 2014 ASSAY OF MAGNESIUM CPT-4 09486 Dec 01, 2014 LIPID PANEL CPT-4 75360 Dec 01, 2014 COMPREHEN METABOLIC PANEL CPT-4 31505 Dec 01, 2014 COMPLETE CBC W/AUTO DIFF WBC CPT-4 71342 Dec 01, 2014 Results Name Result Date Reference Range Unit Abnormality Flag ROUTINE VENIPUNCTURE MAGNESIUM, SERUM Summary Purpose eClinicalWorks Submission
--- OUTSIDE RECORDS SUMMARY | 2016-08-25 06:56 | XMS REPORT ---
Author Author [facility] Organization [employer] Address Unknown Phone Unavailable Care Team Providers Care Tipple Repairer Name Role Phone [facility] CP Unavailable Allergies No Known Allergies [...] PATIENT AND FAMILY SUPPORT CPT-4 S0280 Apr 04, 2015 Results No Known Results Summary Purpose eClinicalWorks Submission
--- OUTSIDE RECORDS SUMMARY | 2016-08-25 06:56 | XMS REPORT ---
Author Author JIMENA ZAINAB Organization [facility] Address [address] [place] [address] Care Team Providers Care Boat Repairer Name Role Phone LILLIAN HESSHANY Unavailable PROBLEMS Type Condition ICD9-CM Code [id number] Code Onset Dates Condition Status SNOMED Code Problem Essential hypertension I10 Active 90344879 Problem Morbid obesity with alveolar hypoventilation E66.2 Active 253014699 Problem Meralgia paresthetica, unspecified laterality G57.10 Active 20651374 Problem Recurrent cellulitis L03.90 Active 586075179 Problem 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 Active 125906681973 Problem Chronic tension-type headache, intractable G44.221 Active 594637845 Problem Low back pain M54.5 Active 090270297 Problem Anxiety F41.9 Active 05539354 Problem Type 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 Active 41225147 Problem Tinnitus of both ears H93.13 Active 7244038937150 Problem Chronic nausea R11.0 Active 507807389 Problem Obstructive sleep apnea G47.33 Active 18912224 Problem Microalbuminuria R80.9 Active 193992153 Problem Chronic diarrhea K52.9 Active 817246101 Problem Primary insomnia F51.01 Active 991064983 Problem Gastroesophageal reflux disease, esophagitis presence not specified K21.9 Active 087073747 Problem Lymphedema I89.0 Active 101781796 Problem Major depressive disorder, recurrent, unspecified F33.9 Active 819679029 Problem Hypertriglyceridemia E78.1 Active 495041707 Problem Type 2 diabetes mellitus with hyperglycemia E11.65 Active 58700594 ALLERGIES Unknown Allergies SOCIAL HISTORY No smoking Hx information available PLAN OF CARE VITAL SIGNS MEDICATIONS Unknown Medications RESULTS No Results PROCEDURES No Known procedures IMMUNIZATIONS No Known Immunizations
--- OUTSIDE RECORDS SUMMARY | 2016-08-25 06:56 | XMS REPORT ---
Author Author ZAINAB HESS [employer] Address Unknown Phone Unavailable Care Team Providers Care Crematory Attendant Name Role Phone ZAINAB HESS CP Unavailable [...]
--- OUTSIDE RECORDS SUMMARY | 2016-08-25 06:56 | XMS REPORT ---
Author Author ZAINAB HESS [employer] Address Unknown Phone Unavailable Care Team Providers Care Environmental Educator Name Role Phone ZAINAB HESS CP Unavailable [...]
--- OUTSIDE RECORDS SUMMARY | 2016-08-25 06:57 | XMS REPORT ---
Author Author [facility] [employer] Address Unknown Phone Unavailable Care Team Providers Care Production Support Consultant Name Role Phone [facility], [facility] CP Unavailable Allergies No Known Allergies Problems [...] System Code Date HEALTH PROMOTION CPT-4 S0280 Mar 10, 2015 Results No Known Results Summary Purpose eClinicalWorks Submission
--- OUTSIDE RECORDS SUMMARY | 2016-08-25 06:57 | XMS REPORT ---
Author Author ZAINAB HESS Organization [employer] Address Unknown Phone Unavailable Care Team Providers Care Production Graphic Designer Name Role Phone ZAINAB HESS CP Unavailable [...]
--- OUTSIDE RECORDS SUMMARY | 2016-08-25 06:58 | XMS REPORT ---
Author Author ZAINAB HESS [employer] Address Unknown Phone Unavailable Care Team Providers Care Merchandise Supervisor Name Role Phone ZAINAB HESS CP [...] Instructions Start Date End Date Status Dosage Diflucan [facility] [address]-00 150 MG Orally Once a day Feb 16, 2016 Feb 18, 2016 1 tablet Results No Known Results Summary Purpose eClinicalWorks Submission
--- OUTSIDE RECORDS SUMMARY | 2016-08-25 06:58 | XMS REPORT ---
Author Author ZAINAB HESS [facility] e[employer] Address Unknown Phone Unavailable Care Team Providers Care Whittling Room Operator Name Role Phone ZAINAB HESS CP [...]
--- OUTSIDE RECORDS SUMMARY | 2016-08-25 06:58 | XMS REPORT ---
Author Author ZAINAB HESS [facility] e[employer] Address Unknown Phone Unavailable Care Team Providers Care Electrical Line Worker Name Role Phone ZAINAB HESS CP Unavailable [...] Instructions Start Date End Date Status Dosage Bactrim DS [facility] [address]-22 800-160 MG Orally 2 times a day Dec 16, 2014 1 tablet Diflucan [facility] [address]-06 150 MG Orally Once a day, for use after Bactrim Dec 16, 2014 1 tablet Results No Known Results Summary Purpose eClinicalWorks Submission
--- OUTSIDE RECORDS SUMMARY | 2016-08-25 06:58 | XMS REPORT ---
Author Author [facility], [facility] e[employer] Address Unknown Phone Unavailable Care Team Providers Care [place] Name Role Phone [facility], [facility] CP Unavailable Allergies No Known Allergies [...] Code Date HEALTH PROMOTION CPT-4 S0280 Dec 29, 2014 Results No Known Results Summary Purpose eClinicalWorks Submission
--- OUTSIDE RECORDS SUMMARY | 2016-08-25 06:58 | XMS REPORT ---
Author Author ZAINAB HESS [facility] e[employer] Address Unknown Phone Unavailable Care Team Providers Care Teacher Adult Education Name Role Phone ZAINAB HESS CP Unavailable [...] Date End Date Status Dosage Lyrica [facility] [id number] 150 MG TAKE 2 CAPSULES BY MOUTH TWICE DAILY Results No Known Results Summary Purpose eClinicalWorks Submission
--- OUTSIDE RECORDS SUMMARY | 2016-08-25 06:58 | XMS REPORT ---
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 Active 078318746274 Problem Chronic tension-type headache, intractable G44.221 Active 005040139 Problem Low back pain M54.5 Active 152983794 Problem Anxiety F41.9 Active 90821429 Problem Type 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 Active 54194204 Problem Tinnitus of both ears H93.13 Active 7489518633029 Problem Chronic nausea R11.0 Active 067225072 Problem Obstructive sleep apnea G47.33 Active 75017617 Problem Microalbuminuria R80.9 Active 872990064 Problem Chronic diarrhea K52.9 Active 417475863 Problem Primary insomnia F51.01 Active 546324209 Problem Gastroesophageal reflux disease, esophagitis presence not specified K21.9 Active 652430974 Problem Lymphedema I89.0 Active 293227545 Problem Major depressive disorder, recurrent, unspecified F33.9 Active 292979472 Problem Hypertriglyceridemia E78.1 Active 810342662 Problem Type 2 diabetes mellitus with hyperglycemia E11.65 Active 72119083 ALLERGIES Unknown Allergies SOCIAL HISTORY No smoking Hx information available PLAN OF CARE VITAL SIGNS MEDICATIONS Unknown Medications RESULTS No Results PROCEDURES No Known procedures IMMUNIZATIONS No Known Immunizations
--- OUTSIDE RECORDS SUMMARY | 2016-08-25 06:58 | XMS REPORT ---
Author Author ZAINAB HESS [employer] Address Unknown Phone Unavailable Care Team Providers Care Voice Systems Engineer Name Role Phone ZAINAB HESS CP Unavailable [...]
--- OUTSIDE RECORDS SUMMARY | 2016-08-25 06:58 | XMS REPORT ---
Author Author ZAINAB HESS [employer] Address Unknown Phone Unavailable Care Team Providers Care Associate Application Developer Name Role Phone ZAINAB HESS CP [...]
--- OUTSIDE RECORDS SUMMARY | 2016-08-25 06:59 | XMS REPORT ---
Author Author ZAINAB HESS [facility] e[employer] Address Unknown Phone Unavailable Care Team Providers Care Fraud Prevention Analyst Name Role Phone ZAINAB HESS CP Unavailable [...] Instructions Start Date End Date Status Dosage Cyclobenzaprine HCl [facility] [address]-97 10 mg Orally Three times a day as needed for muscle spasm July 26, 2015 1 tablet Results No Known Results Summary Purpose eClinicalWorks Submission
== END 2016-07-21 22:05 | disposition home or self-care (01) ==
LOC: EDUNIT# 18:30 → ER 18:32
DX: J44.1 Chronic obstructive pulmonary disease with (acute) exacerbation (principal); I10 Essential (primary) hypertension; E11.9 Type 2 diabetes mellitus without complications; E66.01 Morbid (severe) obesity due to excess calories; G47.30 Sleep apnea, unspecified; Z79.4 Long term (current) use of insulin; Z79.899 Other long term (current) drug therapy; Z87.891 Personal history of nicotine dependence
CPT/HCPCS: 36415; 71020; 80053; 83735; 83880; 84443; 84484; 85025; 93005; 94640; 96374

== ENCOUNTER 2016-08-06 12:28 | Emergency (ER) | payer MEDICAID ==
[~2016-08-06] VITALS: Ht 160 cm; Wt 217.3 kg
--- NOTE | 2016-08-06 12:43 | ED Respiratory ---
General Chief Complaint: Respiratory Problems Stated Complaint: SOA Source: patient Exam Limitations: no limitations History of Present Illness Time seen by provider: 12:42 Initial Comments Patient to ER with worsening shortness of breath for the past 3 days. She arrives per EMS and [facility] Department from home. She does wear oxygen [id number]-[id number] at 3 L/m. She is supposed to wear BiPAP at night but only wore last night, has not been wearing it prior to that. She states that her oxygen saturation dropped to 60 percent at one point yesterday while wearing her oxygen she states. Timing/Duration: constant Severity: moderate Associated Symptoms: cough, shortness of breath Allergies and Home Medications Allergies Coded Allergies: peach (Verified Allergy, Unknown, 02/14/16) Home Medications Albuterol Sulfate 8.5 Gm Hfa.aer.ad, 2 PUFF IH Q4H PRN for SHORTNESS OF BREATH, (Reported) Budesonide/Formoterol Fumarate 10.2 Gm Hfa.aer.ad, 1 PUFF IH BID, (Reported) Folic Acid/Mv,Fe,Other Min 1 Each Tablet, 1 TAB PO DAILY, (Reported) Gemfibrozil 600 Mg Tablet, 600 MG PO BID, (Reported) Ibuprofen 600 Mg Tablet, 600 MG PO QID, (Reported) Insulin Aspart 100 Unit/1 Ml Susp, 15-20 UNITS SQ AC, (Reported) Insulin Glargine,Hum.rec.anlog 100 Unit/1 Ml Vial, 50 UNITS SQ BID, (Reported) Ipratropium [place] 0.2 Mg/1 Ml Solution, 3 ML IH QID PRN for SHORTNESS OF BREATH, (Reported) UP TO 6 TIMES PER DAY Lisinopril 20 Mg Tablet, 20 MG PO DAILY, (Reported) Loperamide Hcl 2 Mg Capsule, PO UD PRN for DIARRHEA, (Reported) 2 CAPS INITIALLY, THEN 1 CAP AFTER EACH LOOSE STOOL. NOT TO EXCEED 8 CAPS/24 HRS. Loratadine 10 Mg Tablet, 10 MG PO DAILY, (Reported) Metformin HCl 1,000 Mg Tablet, 1,000 MG PO BID WITH MEALS, (Reported) Montelukast Sodium 10 Mg Tablet, 10 MG PO DAILY, (Reported) Omeprazole 40 Mg Capsule.dr, 40 MG PO DAILY, (Reported) Pravastatin Sodium 40 Mg Tablet, 40 MG PO HS, (Reported) Pregabalin 150 Mg Capsule, 300 MG PO BID, (Reported) TAKES 2 (150 MG) CAPSULES Ranitidine HCl 150 Mg Tablet, 300 MG PO HS, (Reported) TAKES 2 (150 MG) TABLETS Sucralfate 1 Gm Tablet, #120 (Reported) Sulfamethoxazole/Trimethoprim 1 Each Tablet, #20 (Reported) Constitutional: see HPI EENTM: see HPI Respiratory: see HPI, cough Cardiovascular: no symptoms reported Genitourinary: no symptoms reported Musculoskeletal: no symptoms reported Skin: no symptoms reported Psychiatric/Neurological: No Symptoms Reported Past Nronwbh-Tmrhdf-Fxpwon Hx Patient Social History Alcohol Use: Occasionally Uses Recreational Drug Use: No Smoking Status: Former Smoker Type Used: Cigarettes 2nd Hand Smoke Exposure: No Recent Hopitalizations: No Immunizations Up To Date Tetanus Booster (TDap): Less than 5yrs PED Vaccines UTD: No Date of Pneumonia Vaccine: Jan 13, 2012 Date of Influenza Vaccine: Feb 26, 2012 Seasonal Allergies Seasonal Allergies: No Surgeries HX Surgeries: Yes (abscess on abd , "BLADDER STRETCH") Surgeries: Adenoidectomy, Bladder Surgery, Tonsillectomy Respiratory Hx Respiratory Disorders: Yes (has Cpap (seldom wearing), wears home O2) Respiratory Disorders: Asthma, Sleep Apnea, COPD Cardiovascular Hx Cardiac Disorders: Yes Cardiac Disorders: Chronic Edema/Swelling, High Cholesterol, Hypertension Neurological Hx Neurological Disorders: No Reproductive System Hx Reproductive Disorders: No Sexually Transmitted Disease: No HIV/AIDS: No Female Reproductive Disorders: Denies Genitourinary Hx Genitourinary Disorders: No Gastrointestinal Hx Gastrointestinal Disorders: Yes Gastrointestinal Disorders: Gastroesophageal Reflux, Chronic Constipation Musculoskeletal Hx Musculoskeletal Disorders: No Musculoskeletal Disorders: Chronic Back Pain Endocrine Hx Endocrine Disorders: Yes (Type II, morbid obesity) Endocrine Disorders: Diabetes, Insulin dep HEENT HX ENT Disorders: No Loss of Vision: Denies Hearing Impairment: Denies Cancer Hx Cancer: No Psychosocial Hx Psychiatric Problems: Yes Behavioral Health Disorders: Anxiety, Depression Integumentary HX Skin/Integumentary Disorder: No (MULTIPLE ABCESSES REMOVED ABDOMEN) Skin/Integumentary Disorders: Eczema Blood Transfusions Hx Blood Disorders: No Adverse Reaction to a Blood Tr: No Family Medical History Significant Family History: Heart Disease, Seizures Family Medial History: Cancer 19 FATHER, Onset:Unknown 19 MOTHER, Onset:Unknown Cancer of colon 19 FATHER, Onset:Unknown 19 MOTHER, Onset:Unknown Family history: Cardiovascular disease 19 FATHER, Onset:Unknown 19 MOTHER, Onset:Unknown Family history: Diabetes mellitus 19 FATHER, Onset:Unknown 19 MOTHER, Onset:Unknown Physical Exam Vital Signs Vital Sign - Last 12Hours 08/06/16 12:28 Temp 98.8 Pulse 98 Resp 18 B/P (MAP) 110/60 Pulse Ox 97 O2 Delivery Nasal Cannula O2 Flow Rate 3.00 Capillary Refill : General Appearance: WD/WN, no apparent distress, obese, other (arrives to ER with oxygen saturation 89 percent on room air, increases to 95 percent on her baseline 3 L. Speaks in full sentences.) Eyes: Bilateral Eye EOMI, Bilateral Eye Normal Inspection, Bilateral Eye PERRL HEENT: PERRL/EOMI, normal ENT inspection Neck: non-tender, full range of motion Respiratory: normal breath sounds, no respiratory distress, no accessory muscle use Cardiovascular: regular rate, rhythm, no murmur Gastrointestinal: normal bowel sounds, non tender, soft Extremities: normal range of motion, non-tender Neurologic/Psychiatric: alert, normal mood/affect, oriented x 3 Skin: normal color, warm/dry Progress/Results/Core Measures Results/Orders Lab Results Laboratory Tests Test 08/06/16 12:38 08/06/16 13:00 08/06/16 14:15 Range/Units Blood Gas Puncture Site LT RAD LT RAD Blood Gas Patient Temperature 98.8 98.8 Arterial Blood pH 7.35 L 7.36 L 7.37-7.43 Arterial Blood Partial Pressure CO2 58 H 58 H 35-45 MMHG Arterial Blood Partial Pressure O2 78 L 80 79-93 MMHG Arterial Blood HCO3 31 H 31 H 23-27 MMOL/L Arterial Blood Total CO2 32.8 H 33.2 H 21.0-31.0 MMOL/L Arterial Blood Oxygen Saturation 97 97 94-100 % Arterial Blood Base Excess 5.6 H 6.1 H -2.5-2.5 MMOL/L Mayank Test YES-POS YES-POS Blood Gas Ventilator Setting NO NO Blood Gas Inspired Oxygen 3L 3L White Blood Count 8.5 4.3-11.0 10^3/uL Red Blood Count 3.55 L 4.35-5.85 10^6/uL Hemoglobin 11.0 L 11.5-16.0 G/DL Hematocrit 35 35-52 % Mean Corpuscular Volume 98 80-99 FL Mean Corpuscular Hemoglobin 31 25-34 PG Mean Corpuscular Hemoglobin Concent 32 32-36 G/DL Red Cell Distribution Width 15.7 H 10.0-14.5 % Platelet Count 254 130-400 10^3/uL Mean Platelet Volume 10.2 7.4-10.4 FL Neutrophils (%) (Auto) 69 42-75 % Lymphocytes (%) (Auto) 23 12-44 % Monocytes (%) (Auto) 5 0-12 % Eosinophils (%) (Auto) 2 0-10 % Basophils (%) (Auto) 0 0-10 % Neutrophils # (Auto) 5.9 1.8-7.8 X 10^3 Lymphocytes # (Auto) 2.0 1.0-4.0 X 10^3 Monocytes # (Auto) 0.4 0.0-1.0 X 10^3 Eosinophils # (Auto) 0.2 0.0-0.3 10^3/uL Basophils # (Auto) 0.0 0.0-0.1 10^3/uL Sodium Level 138 135-145 MMOL/L Potassium Level 4.4 3.6-5.0 MMOL/L Chloride Level 98 98-107 MMOL/L Carbon Dioxide Level 30 21-32 MMOL/L Anion Gap 10 5-14 MMOL/L Blood Urea Nitrogen 19 H 7-18 MG/DL Creatinine 0.71 0.60-1.30 MG/DL Estimat Glomerular Filtration Rate > 60 BUN/Creatinine Ratio 27 Glucose Level 236 H 70-105 MG/DL Calcium Level 9.3 8.5-10.1 MG/DL Total Bilirubin 0.2 0.1-1.0 MG/DL Aspartate Amino Transf (AST/SGOT) 42 H 5-34 U/L Alanine Aminotransferase (ALT/SGPT) 23 0-55 U/L Alkaline Phosphatase 86 40-136 U/L B-Type Natriuretic Peptide 16.1 <100.0 PG/ML Total Protein 6.2 L 6.4-8.2 G/DL Albumin 3.5 3.2-4.5 G/DL My Orders Orders - DAVE MARIEE APRN Arterial Blood Gas (08/06/16 12:40) Cbc With Automated Diff (08/06/16 12:40) Comprehensive Metabolic Panel (08/06/16 12:40) BNP (08/06/16 12:40) Chest 1 View, Ap/Pa Only (08/06/16 12:40) Arterial Blood Gas (08/06/16 14:07) Vital Signs/I&O Vital Sign - Last 12Hours 08/06/16 12:28 Temp 98.8 Pulse 98 Resp 18 B/P (MAP) 110/60 Pulse Ox 97 O2 Delivery Nasal Cannula O2 Flow Rate 3.00 Departure Communication Progress Notes Patient states she was goes to sleep study a week and half ago but missed this appointment she did not have transportation. She states that she called today to reschedule it. 1500-I did discuss the case with Dr. Mckeon. She is aware of this patient after visiting with Dr. Cano. Agrees to discharge patient to home as her hypercapnia is chronic and the real issue here is the patient's noncompliance as she will not wear her C Pap machine. Impression Impression: Primary Impression: Obesity hypoventilation syndrome Additional Impression: Chronic respiratory failure with hypercapnia Disposition: HOME, SELF-CARE Condition: Stable Departure-Patient Inst. Decision time for Depature: 14:59 Referrals: ZAINAB CANO MD (PCP/Family) Primary Care Physician Patient Instructions: NO INSTRUCTIONS GIVEN Add. Discharge Instructions: 1. Follow-up with Dr. Cano at [facility] this week. Call today for an appointment 3. Return to ER for any worsening 4. Use your C Pap even in the evening if you're just sitting around watching TV , at least wear it for a few hours. All discharge instructions reviewed with patient and/or family. Voiced understanding. DAVE MARIEE APRN Aug 06, 2016 12:43
[2016-08-06] MEDS ORDERED: SULF-222 PO (12:44)
[2016-08-06] MEDS ORDERED: SUCR1TAB PO (12:44)
[2016-08-06 12:46] LABS: ABG BASE EXCESS 5.6 MMOL/L (-2.5-2.5); ABG HCO3 31 MMOL/L (23-27); ABG OXYGEN SATURATION 97 % (94-100); ABG PCO2 58 MMHG (35-45); ABG PH 7.35 (7.37-7.43); ABG PO2 78 MMHG (79-93); ABG TCO2 32.8 MMOL/L (21.0-31.0)
[2016-08-06 12:47] LABS: ALLENS TEST YES-POS; PATIENT TEMP 98.8
[2016-08-06 13:09] LABS: BASOPHILS % (AUTO) 0 % (0-10); EOSINOPHILS # (AUTO) 0.2 10^3/uL (0.0-0.3); EOSINOPHILS % (AUTO) 2 % (0-10); LYMPHOCYTES % (AUTO) 23 % (12-44); MEAN CORPUSCULAR HEMOGLOBIN 31 PG (25-34); MEAN CORPUSCULAR HGB CONC 32 G/DL (32-36); MEAN CORPUSCULAR VOLUME 98 FL (80-99); MEAN PLATELET VOLUME 10.2 FL (7.4-10.4); MONOCYTES # (AUTO) 0.4 X 10^3 (0.0-1.0); MONOCYTES % (AUTO) 5 % (0-12); NEUTROPHILS # (AUTO) 5.9 X 10^3 (1.8-7.8); NEUTROPHILS % (AUTO) 69 % (42-75); PLATELET COUNT 254 10^3/uL (130-400); RED BLOOD COUNT 3.55 10^6/uL (4.35-5.85); RED CELL DISTRIBUTION WIDTH 15.7 % (10.0-14.5); WHITE BLOOD COUNT 8.5 10^3/uL (4.3-11.0)
--- NOTE | 2016-08-06 13:30 | Diagnostic Imaging Report ---
INDICATION: Hypoxemia. EXAMINATION: Portable chest at 1:21 p.m. FINDINGS: Heart size and pulmonary vascularity are normal. The lungs are clear. There are no effusions or pneumothoraces. IMPRESSION: Negative chest. Dictated by: Dictated on workstation # [id number]
[2016-08-06 13:40] LABS: ALANINE AMINOTRANSFERASE 23 U/L (0-55); ALBUMIN 3.5 G/DL (3.2-4.5); ANION GAP 10 MMOL/L (5-14); ASPARTATE AMINO TRANSFERASE 42 U/L (5-34); BILIRUBIN,TOTAL 0.2 MG/DL (0.1-1.0); BLOOD UREA NITROGEN 19 MG/DL (7-18); BUN/CREATININE RATIO 27; CALCIUM 9.3 MG/DL (8.5-10.1); CARBON DIOXIDE 30 MMOL/L (21-32); CHLORIDE 98 MMOL/L (98-107); CREATININE SERUM 0.71 MG/DL (0.60-1.30); GFR ESTIMATED > 60; GLUCOSE 236 MG/DL (70-105); POTASSIUM 4.4 MMOL/L (3.6-5.0); SODIUM 138 MMOL/L (135-145); TOTAL PROTEIN 6.2 G/DL (6.4-8.2)
[2016-08-06 14:22] LABS: ABG BASE EXCESS 6.1 MMOL/L (-2.5-2.5); ABG HCO3 31 MMOL/L (23-27); ABG OXYGEN SATURATION 97 % (94-100); ABG PCO2 58 MMHG (35-45); ABG PH 7.36 (7.37-7.43); ABG PO2 80 MMHG (79-93); ABG TCO2 33.2 MMOL/L (21.0-31.0)
[2016-08-06 14:23] LABS: ALLENS TEST YES-POS; PATIENT TEMP 98.8
[2016-08-06 15:45] VITALS: BP 134/71
== END 2016-08-06 15:47 | disposition home or self-care (01) ==
LOC: EDUNIT# 12:28 → ER 12:29
DX: J96.12 Chronic respiratory failure with hypercapnia (principal); E66.2 Morbid (severe) obesity with alveolar hypoventilation; E11.9 Type 2 diabetes mellitus without complications; I10 Essential (primary) hypertension; J44.9 Chronic obstructive pulmonary disease, unspecified; Z87.891 Personal history of nicotine dependence; Z79.4 Long term (current) use of insulin; Z79.84 Long term (current) use of oral hypoglycemic drugs; Z79.899 Other long term (current) drug therapy; Z99.81 Dependence on supplemental oxygen; Z91.19 Patient's noncompliance with other medical treatment and regimen
CPT/HCPCS: 36415; 71010; 80053; 82805; 83880; 85025

== ENCOUNTER 2016-08-08 10:20 | Inpatient (IN) | payer MEDICAID ==
[~2016-08-08] VITALS: Ht 162.6 cm; Wt 183.0 kg
[~2016-08-08 10:20] MED LIST changes: +SUCR1TAB PO
[2016-08-08 10:54] VITALS: BP 120/64
[2016-08-08 11:40] VITALS: BP 138/83
[2016-08-08] MEDS ORDERED: CETI10TA17 PO (14:54)
[2016-08-08] MEDS ORDERED: PREG150C PO ×2 (15:12)
[2016-08-08 15:35] VITALS: BP 115/62
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
[2016-08-08 16:12] LABS: BASOPHILS % (AUTO) 0 % (0-10); EOSINOPHILS # (AUTO) 0.2 10^3/uL (0.0-0.3); EOSINOPHILS % (AUTO) 3 % (0-10); LYMPHOCYTES # (AUTO) 2.2 X 10^3 (1.0-4.0); LYMPHOCYTES % (AUTO) 28 % (12-44); MEAN CORPUSCULAR HEMOGLOBIN 31 PG (25-34); MEAN CORPUSCULAR HGB CONC 31 G/DL (32-36); MEAN CORPUSCULAR VOLUME 98 FL (80-99); MEAN PLATELET VOLUME 10.9 FL (7.4-10.4); MONOCYTES # (AUTO) 0.6 X 10^3 (0.0-1.0); MONOCYTES % (AUTO) 7 % (0-12); NEUTROPHILS # (AUTO) 5.1 X 10^3 (1.8-7.8); NEUTROPHILS % (AUTO) 63 % (42-75); PLATELET COUNT 229 10^3/uL (130-400); RED BLOOD COUNT 3.57 10^6/uL (4.35-5.85); RED CELL DISTRIBUTION WIDTH 15.6 % (10.0-14.5); WHITE BLOOD COUNT 8.1 10^3/uL (4.3-11.0)
[2016-08-08 16:21] LABS: ALANINE AMINOTRANSFERASE 23 U/L (0-55); ALBUMIN 3.4 G/DL (3.2-4.5); ANION GAP 13 MMOL/L (5-14); ASPARTATE AMINO TRANSFERASE 57 U/L (5-34); BILIRUBIN,TOTAL 0.2 MG/DL (0.1-1.0); BLOOD UREA NITROGEN 18 MG/DL (7-18); BUN/CREATININE RATIO 23; CARBON DIOXIDE 24 MMOL/L (21-32); CHLORIDE 100 MMOL/L (98-107); CREATININE SERUM 0.77 MG/DL (0.60-1.30); GFR ESTIMATED > 60; GLUCOSE 158 MG/DL (70-105); POTASSIUM 5.6 MMOL/L (3.6-5.0); SODIUM 137 MMOL/L (135-145); TOTAL PROTEIN 6.5 G/DL (6.4-8.2)
[2016-08-08 16:37] LABS: BAND NEUTROPHILS 1 %; BASOPHILS % (MANUAL) 0 %; EOSINOPHILS % (MANUAL) 5 %; LYMPHOCYTES % (MANUAL) 37 %; NEUTROPHILS % (MANUAL) 55 %; POLYCHROMASIA SLIGHT
[2016-08-08] MEDS ORDERED: RT-ALBUTEROL SULF 2.5 MG/3 ML PRE-MIX VIAL IH PRN (16:45)
[2016-08-08] MEDS ORDERED: FUROSEMIDE 40 MG/4 ML INJ (LASIX) ONE (16:48)
[2016-08-08] MEDS: SUCRALFATE 1 GM (CARAFATE) TAB PO SCH ×2 (16:55→20:53)
[2016-08-08] MEDS: inSUlin ASPART (NovoLOG) 1 UNIT/0.01 ML (CHARGE PER UNIT) SC SCH ×3 (16:55→20:40)
[2016-08-08] MEDS: FUROSEMIDE 40 MG/4 ML INJ (LASIX) IVP SCH (16:56)
[2016-08-08] MEDS: IBUPROFEN 800 MG (MOTRIN) TAB PO PRN (16:56)
[2016-08-08] MEDS: RT-ALBUTEROL/IPRATROPIUM 3 ML (DUONEB) VIAL INH SCH ×2 (18:49→21:49)
[2016-08-08] MEDS ORDERED: RT-ADVAIR HFA 115/21 MCG PER PUFF IH SCH (20:00)
[2016-08-08 20:20] VITALS: BP 104/63
[2016-08-08] MEDS: PREGABALIN 100 MG (LYRICA) CAPSULE PO SCH (20:53)
[2016-08-08] MEDS: SIMvastatin 20 MG (ZOCOR) TAB PO SCH (20:53)
[2016-08-08] MEDS: FAMOTIDINE 20 MG (PEPCID) TABLET PO SCH (20:53)
[2016-08-08] MEDS: inSUlin DETERMIR 1 UNIT/0.01 ML (LEVEMIR) CHARGE PER UNIT SQ SCH (20:53)
[2016-08-08] MEDS: GEMFIBROZIL 600 MG (LOPID) TAB PO SCH (20:53)
[2016-08-08] MEDS: ENOXAPARIN 30 MG/0.3 ML (LOVENOX) SYR SC SCH (20:54)
[2016-08-09] VITALS (7 sets, daily range): BP systolic 103–134; BP diastolic 56–73
[2016-08-09] MEDS: RT-ALBUTEROL/IPRATROPIUM 3 ML (DUONEB) VIAL INH SCH ×6 (01:54→22:35)
[2016-08-09] MEDS: ADVAIR HFA 115/21 MCG INHALER 8 GM IH SCH ×3 (01:54→18:31)
[2016-08-09] MEDS: PANTOPRAZOLE 40 MG (PROTONIX) TAB PO SCH (07:05)
[2016-08-09] MEDS: inSUlin ASPART (NovoLOG) 1 UNIT/0.01 ML (CHARGE PER UNIT) SC SCH ×7 (07:05→20:31)
[2016-08-09] MEDS: SUCRALFATE 1 GM (CARAFATE) TAB PO SCH ×4 (07:06→20:28)
[2016-08-09] MEDS: FUROSEMIDE 40 MG/4 ML INJ (LASIX) IVP SCH ×2 (07:06→17:46)
[2016-08-09 07:15] LABS: BASOPHILS % (AUTO) 1 % (0-10); EOSINOPHILS # (AUTO) 0.2 10^3/uL (0.0-0.3); EOSINOPHILS % (AUTO) 2 % (0-10); LYMPHOCYTES # (AUTO) 2.3 X 10^3 (1.0-4.0); LYMPHOCYTES % (AUTO) 27 % (12-44); MEAN CORPUSCULAR HEMOGLOBIN 31 PG (25-34); MEAN CORPUSCULAR HGB CONC 32 G/DL (32-36); MEAN CORPUSCULAR VOLUME 98 FL (80-99); MEAN PLATELET VOLUME 10.9 FL (7.4-10.4); MONOCYTES # (AUTO) 0.5 X 10^3 (0.0-1.0); MONOCYTES % (AUTO) 5 % (0-12); NEUTROPHILS # (AUTO) 5.5 X 10^3 (1.8-7.8); NEUTROPHILS % (AUTO) 65 % (42-75); PLATELET COUNT 271 10^3/uL (130-400); RED BLOOD COUNT 3.55 10^6/uL (4.35-5.85); WHITE BLOOD COUNT 8.5 10^3/uL (4.3-11.0)
[2016-08-09 07:36] LABS: ALANINE AMINOTRANSFERASE 20 U/L (0-55); ALBUMIN 3.4 G/DL (3.2-4.5); ANION GAP 12 MMOL/L (5-14); ASPARTATE AMINO TRANSFERASE 47 U/L (5-34); BILIRUBIN,TOTAL 0.3 MG/DL (0.1-1.0); BLOOD UREA NITROGEN 28 MG/DL (7-18); BUN/CREATININE RATIO 32; CALCIUM 9.1 MG/DL (8.5-10.1); CARBON DIOXIDE 28 MMOL/L (21-32); CHLORIDE 98 MMOL/L (98-107); CREATININE SERUM 0.88 MG/DL (0.60-1.30); GFR ESTIMATED > 60; GLUCOSE 159 MG/DL (70-105); POTASSIUM 4.2 MMOL/L (3.6-5.0); SODIUM 138 MMOL/L (135-145); TOTAL PROTEIN 6.2 G/DL (6.4-8.2)
--- NOTE | 2016-08-09 09:15 | Physical Therapy Progress Note ---
Therapy Progress Note Chart reviewed and evaluation attempted. Patient reports that she is walking just fine here in the hospital. She has been ambulating to the bathroom and back and she states she does not have any balance issues. Nurse aide reports that she has been walking well. Patient states she has no need for physical therapy at this time. Told patient that if she felt a need for physical therapy or if she started having trouble with balance or ambulation to tell her nurse and we would certainly get new orders to see her. ALISIA CELESTE PT Aug 09, 2016 09:15
[2016-08-09] MEDS: IBUPROFEN 800 MG (MOTRIN) TAB PO PRN (09:28)
[2016-08-09] MEDS: lisINopril 20 MG (ZESTRIL) TAB PO SCH (09:29)
[2016-08-09] MEDS: PREGABALIN 75 MG (LYRICA) CAP PO SCH (09:29)
[2016-08-09] MEDS: inSUlin DETERMIR 1 UNIT/0.01 ML (LEVEMIR) CHARGE PER UNIT SQ SCH ×2 (09:29→20:28)
[2016-08-09] MEDS: LORATADINE (CLARITIN) 10 MG TAB PO SCH (09:29)
[2016-08-09] MEDS: GEMFIBROZIL 600 MG (LOPID) TAB PO SCH ×2 (09:29→20:28)
[2016-08-09] MEDS: ENOXAPARIN 30 MG/0.3 ML (LOVENOX) SYR SC SCH ×2 (09:29→20:27)
[2016-08-09] MEDS: MONTELUKAST 10 MG (SINGULAIR) TAB PO SCH (09:29)
[2016-08-09] MEDS ORDERED: IBUPROFEN 800 MG (MOTRIN) TAB PO PRN (15:12)
[2016-08-09] MEDS ORDERED: ASPIRIN E.C. 325 MG (ECOTRIN) TABLET PO NR (15:15)
--- NOTE | 2016-08-09 16:55 | Progress Note (SOAP) ---
Subjective Subjective/Events-last exam States that her sister is helping her fill out the information for weight loss surgery. She is still short of breath and is concerned of why her oxygen saturations goes down so much when she is at home. Tolerating PO diet. Able to ambulate to bathroom. Stated that she slept with CPAP on all night and woke up with a headache this AM. Date seen by provider: Aug 09, 2016 Objective Exam Last Set of Vital Signs Vital Signs Date Time Temp Pulse Resp B/P (MAP) Pulse Ox O2 Delivery O2 Flow Rate FiO2 08/09/16 12:00 97.7 101 22 103/56 94 Nasal Cannula 4.00 Capillary Refill : I&O Bad tableGeneral: Alert, Oriented X3, Cooperative (Morbidly obese female) Lungs: Clear to Auscultation Heart: Regular Rate Abdomen: Normal Bowel Sounds, Soft, No Tenderness Extremities: Other (2+ pitting edema bilaterally) Skin: No Rashes, No Breakdown Psych/Mental Status: Mental Status NL, Other (States that she is depressed ) Results/Procedures Lab Laboratory Tests 08/08/16 20:37: Glucometer 141H 08/09/16 06:45: White Blood Count 8.5, Red Blood Count 3.55L, Hemoglobin 11.1L, Hematocrit 35, Mean Corpuscular Volume 98, Mean Corpuscular Hemoglobin 31, Mean Corpuscular Hemoglobin Concent 32, Red Cell Distribution Width 16.0H, Platelet Count 271, Mean Platelet Volume 10.9H, Neutrophils (%) (Auto) 65, Lymphocytes (%) (Auto) 27 , Monocytes (%) (Auto) 5, Eosinophils (%) (Auto) 2, Basophils (%) (Auto) 1, Neutrophils # (Auto) 5.5, Lymphocytes # (Auto) 2.3, Monocytes # (Auto) 0.5, Eosinophils # (Auto) 0.2, Basophils # (Auto) 0.0, Sodium Level 138, Potassium Level 4.2, Chloride Level 98, Carbon Dioxide Level 28, Anion Gap 12, Blood Urea Nitrogen 28H, Creatinine 0.88, Estimat Glomerular Filtration Rate > 60, BUN/ Creatinine Ratio 32, Glucose Level 159H, Calcium Level 9.1, Total Bilirubin 0.3 , Aspartate Amino Transf (AST/SGOT) 47H, Alanine Aminotransferase (ALT/SGPT) 20 , Alkaline Phosphatase 78, Total Protein 6.2L, Albumin 3.4 08/09/16 06:59: Glucometer 154H 08/09/16 11:19: Glucometer 204H 08/09/16 14:39: Glucometer 199H 08/09/16 15:22: Troponin I < 0.30 Assessment/Plan Assessment/Plan Plan 40 yo F that was admitted for acute on chronic respiratory failure with hypoxia into the 80s Plan Acute on Chronic Respiratory Failure: Pulmonary edema vs COPD vs uncontrolled hypoventilation syndrome - Not likely an infectious process - Will give IV lasix and monitor for improvement after diuresis - Encouraged patient to get out of bed, sit up in chair - A/A nebs, RT ordered - Will hold off on steroids at this time, no wheezing presently Obesity Hypoventilation Syndrome - CPAP when laying down - Patient has outpatient sleep study scheduled as she may need BiPAP support - Discussed the importance of weight loss as her breathing problems stem from her weight and are putting strain on her heart Insulin Dependent DM - A1c 8.7, Continued home insulin - Patient is non compliant with diet Morbid Obesity: See Above - Needs to follow strict calorie diet - Discussed the need to consider weight loss surgery Chronic Pain - Due to weight - Continued Ibuprofen and Lyrica: home meds HLD - continue fibrate and statin Skin infection - Patient states that she has 7 days of Bactrim to complete that she got from clinic, restarted AB BEVERLY - Elevated LFTs with recent US showing fatty liver FEN: ADA diet DVT PPX: Lovenox 30 BID (increased dose due to weight) Dispo: Likely d/c home tomorrow Diagnosis/Problems: Clinical Quality Measures DVT/VTE Risk/Contraindication: Risk Factor Score Per Nursin RFS Level Per Nursing on Admit: 4+=Very High TERENCE VOGT MD Aug 09, 2016 4:54 pm
[2016-08-09] MEDS: TRIM/SULFAMETH 160/800 (SEPTRA DS) TAB PO SCH (17:45)
[2016-08-09] MEDS ORDERED: RT-ADVAIR HFA 115/21 MCG PER PUFF IH ONE (18:18)
[2016-08-09] MEDS: FAMOTIDINE 20 MG (PEPCID) TABLET PO SCH (20:28)
[2016-08-09] MEDS: SIMvastatin 20 MG (ZOCOR) TAB PO SCH (20:28)
[2016-08-09] MEDS: PREGABALIN 100 MG (LYRICA) CAPSULE PO SCH (20:28)
[2016-08-10] VITALS: BP 95/65
[2016-08-10] MEDS: RT-ALBUTEROL/IPRATROPIUM 3 ML (DUONEB) VIAL INH SCH ×3 (02:08→10:39)
[2016-08-10 04:00] VITALS: BP 105/57
[2016-08-10] MEDS: TRIM/SULFAMETH 160/800 (SEPTRA DS) TAB PO SCH (06:46)
[2016-08-10] MEDS: PANTOPRAZOLE 40 MG (PROTONIX) TAB PO SCH (06:46)
[2016-08-10] MEDS: SUCRALFATE 1 GM (CARAFATE) TAB PO SCH ×2 (06:46→11:27)
[2016-08-10] MEDS ORDERED: FUROSEMIDE 40 MG (LASIX) TAB PO SCH (07:00)
[2016-08-10] MEDS: ADVAIR HFA 115/21 MCG INHALER 8 GM IH SCH (07:03)
[2016-08-10 07:56] LABS: BASOPHILS % (AUTO) 0 % (0-10); EOSINOPHILS # (AUTO) 0.2 10^3/uL (0.0-0.3); EOSINOPHILS % (AUTO) 2 % (0-10); LYMPHOCYTES # (AUTO) 2.2 X 10^3 (1.0-4.0); LYMPHOCYTES % (AUTO) 29 % (12-44); MEAN CORPUSCULAR HEMOGLOBIN 31 PG (25-34); MEAN CORPUSCULAR HGB CONC 32 G/DL (32-36); MEAN CORPUSCULAR VOLUME 97 FL (80-99); MONOCYTES # (AUTO) 0.4 X 10^3 (0.0-1.0); MONOCYTES % (AUTO) 5 % (0-12); NEUTROPHILS # (AUTO) 4.7 X 10^3 (1.8-7.8); NEUTROPHILS % (AUTO) 64 % (42-75); PLATELET COUNT 272 10^3/uL (130-400); RED CELL DISTRIBUTION WIDTH 16.1 % (10.0-14.5); WHITE BLOOD COUNT 7.4 10^3/uL (4.3-11.0)
[2016-08-10 08:00] VITALS: BP 114/74
[2016-08-10 08:12] LABS: ALBUMIN 3.5 G/DL (3.2-4.5); BILIRUBIN,TOTAL 0.3 MG/DL (0.1-1.0); CALCIUM 8.9 MG/DL (8.5-10.1); CREATININE SERUM 1.23 MG/DL (0.60-1.30); POTASSIUM 4.1 MMOL/L (3.6-5.0); TOTAL PROTEIN 6.4 G/DL (6.4-8.2)
[2016-08-10] MEDS: PREGABALIN 75 MG (LYRICA) CAP PO SCH (09:01)
[2016-08-10] MEDS: LORATADINE (CLARITIN) 10 MG TAB PO SCH (09:01)
[2016-08-10] MEDS: lisINopril 20 MG (ZESTRIL) TAB PO SCH (09:01)
[2016-08-10] MEDS: MONTELUKAST 10 MG (SINGULAIR) TAB PO SCH (09:01)
[2016-08-10] MEDS: GEMFIBROZIL 600 MG (LOPID) TAB PO SCH (09:01)
[2016-08-10] MEDS: ENOXAPARIN 30 MG/0.3 ML (LOVENOX) SYR SC SCH (09:01)
[2016-08-10] MEDS: inSUlin ASPART (NovoLOG) 1 UNIT/0.01 ML (CHARGE PER UNIT) SC SCH ×4 (09:02→12:45)
[2016-08-10] MEDS: inSUlin DETERMIR 1 UNIT/0.01 ML (LEVEMIR) CHARGE PER UNIT SQ SCH (09:02)
--- NOTE | 2016-08-10 12:49 | Discharge Summary ---
Diagnosis/Chief Complaint Date of Admission Aug 08, 2016 at 10:55 Date of Discharge 08/10/16 Admission Diagnosis Admission Diagnosis Acute on Chronic Respiratory Failure Obesity Hypoventilation Syndrome IDDM II Morbid Obesity Chronic Pain HLD BEVERLY Non compliant Discharge Diagnosis See Above Chief Complaint/HPI Chief Complaint/HPI 40 yo morbidly obese female that was admitted for acute on chronic respiratory failure. Patient states that the last few days she has been feeling much more short of breath and has had to increase her oxygen to 3L all the time. States that she used her CPAP last night with her oxygen and did not feel any better. Came to the ER on friday and was discharged home. After leaving the ER states that she used her CPAP for about 4 hours while she sat up on her couch and felt alittle better. She has gained 10 pounds over the last week. Denies any changes in her diet but she is not consistent with her diet. She is also complaining of chronic abdominal pain in her stomach. States that sometimes it gets worse with eating. Had a normal US done a few months ago. Patient has not been able to get a CT done because she exceeds the weight limit. Discharge Summary-Simple/Stand Consultations Discharge Physical Examination Allergies: Coded Allergies: No Known Drug Allergies (Unverified , 08/08/16) Vitals & I&Os Vital Sign - Last 12Hours Date Time Temp Pulse Resp B/P (MAP) Pulse Ox O2 Delivery O2 Flow Rate FiO2 08/10/16 10:39 95 4.00 08/10/16 08:00 97.8 100 20 114/74 Nasal Cannula Intake and Output 08/10/16 00:00 Intake Total 3020 ml Output Total 150 ml Balance 2870 ml General Appearance: Alert, Oriented X3, Cooperative HEENT: Atraumatic, PERRLA, EOMI, Mucous Memb Moist/[place] Respiratory: Clear to Auscultation, Normal Air Movement Cardiovascular: Regular Rate, No Murmurs Abdominal: Normal Bowel Sounds, Soft, No Tenderness, No Hepatosplenomegaly, No Masses Extremities: Other (1+ pitting edema with chronic lymphedema skin changes) Skin: No Rashes, No Breakdown Neuro: Normal Speech, Strength at 5/5 X4 Ext, Sensation Intact, Cranial Nerves 3-12 NL Psych/Mental Status: Mental Status NL, Other (Depressed Mood) Hospital Course See final discharge diagnosis. Labs A1c 8.7 Pending Labs None Pending Discussion & Recommendations 40 yo Morbidly obese female that presented to clinic with increased oxygen demand and hypoxia Acute on Chronic Respiratory Failure: Discussed in detail the role her weight is playing on her lung status. Patient seems motivated for weight loss surgery but she is very non compliant with diet recommendations and argued with me several times during this hospital stay regarding diet restrictions. Discussed with patient the progression of her lung disease and the severity. Patient has normal oxygen saturations on her baseline oxygen requirement. Obesity Hypoventilation syndrome: Patient is to have outpatient sleep study as she likely needs more support then CPAP at night. Patient does not wear CPAP most of the time because she states that it "falls" off. Morbid Obesity: Does not follow strict diet recommendations. Very little activity. Sister enables patient. Insulin Dependent DM: No change in insulin. A1c 8.7 Chronic Pain: continued home medications. Recommend weight loss. Debility: Encouraged patient to become more active. Patient needs to burn more calories per day. BEVERLY: LFTs seem to be at baseline. US earlier this month showed fatty liver. Discussed progression of fatty liver to cirrhois of liver and then liver failure. Discharge Condition at discharge Stable Instructions to patient/family Please see electonic discharge instructions given to patient. Discharge Medications Reviewed and agree with Discharge Medication list on patient's Discharge Instruction sheet Clinical Quality Measures DVT/VTE Risk/Contraindication: Risk Factor Score Per Nursin RFS Level Per Nursing on Admit: 4+=Very High Copy Copies To 1: ZAINAB HESS MD, HOLLY R MD Aug 10, 2016 12:49
[2016-08-10] MEDS ORDERED: IBUP-1780 PO (12:53)
[2016-08-10] MEDS ORDERED: FURO40TA4 PO (12:53)
--- NOTE | 2016-08-10 12:56 | Discharge Instructions ---
Discharge [facility] Discharge Medications New, Converted or Re-Newed RX: Call to Patients Pharmacy New Medications: Furosemide (Furosemide) 40 Mg Tablet 40 MG PO DAILY for 30 Days, #30 TAB Ibuprofen (Ibuprofen) 800 Mg Tablet 800 MG PO Q6HR PRN for PAIN-BREAKTHROUGH for 30 Days, #30 TAB Continued Medications: Albuterol Sulfate (Proair Hfa) 8.5 Gm Hfa.aer.ad 2 PUFF IH Q4H PRN for SHORTNESS OF BREATH Budesonide/Formoterol Fumarate (Symbicort 160-4.5 Mcg Inhaler) 10.2 Gm Hfa.aer.ad 2 PUFF IH BID Cetirizine HCl (Cetirizine HCl) 10 Mg Tablet 10 MG PO DAILY, TAB Folic Acid/Mv,Fe,Other Min (One Daily For Women Tablet) 1 Each Tablet 1 TAB PO DAILY, TAB Gemfibrozil (Gemfibrozil) 600 Mg Tablet 600 MG PO BID, TAB Insulin Aspart (Novolog) 100 Unit/1 Ml Susp 35 UNITS SQ AC, EA Insulin Glargine,Hum.rec.anlog (Lantus) 100 Unit/1 Ml Vial 50 UNITS SQ BID, EA Ipratropium Meridian (Ipratropium Meridian) 0.2 Mg/1 Ml Solution 3 ML IH QID PRN for SHORTNESS OF BREATH Lisinopril (Lisinopril) 20 Mg Tablet 20 MG PO DAILY, TAB Loperamide Hcl (Loperamide Cap) 2 Mg Capsule PO UD PRN for DIARRHEA 2 CAPS INITIALLY, THEN 1 CAP AFTER EACH LOOSE STOOL. NOT TO EXCEED 8 CAPS/24 HRS. Metformin HCl (Metformin HCl) 1,000 Mg Tablet 1000 MG PO BID WITH MEALS, TAB Montelukast Sodium (Montelukast Sodium) 10 Mg Tablet 10 MG PO DAILY, TAB Omeprazole (Omeprazole) 40 Mg Capsule.dr 40 MG PO DAILY, CAP Pravastatin Sodium (Pravastatin Sodium) 40 Mg Tablet 40 MG PO HS, TAB Pregabalin (Lyrica) 150 Mg Capsule 300 MG PO HS, CAP TAKES 2 (150 MG) CAPSULES Pregabalin (Lyrica) 150 Mg Capsule 150 MG PO 0800, CAP Pregabalin (Lyrica) 150 Mg Capsule 150 MG PO DAILY PRN for PAIN-BREAKTHROUGH, CAP TAKES IN THE MIDDLE OF THE NIGHT NEEDED FOR PAIN Ranitidine HCl (Ranitidine HCl) 150 Mg Tablet 300 MG PO HS, TAB TAKES 2 (150 MG) TABLETS Sucralfate (Sucralfate) 1 Gm Tablet 1 GM PO ACHS, TAB Sulfamethoxazole/Trimethoprim (Sulfamethoxazole-Tmp Ds Tablet) 1 Each Tablet 1 TAB PO BID for 10 Days, TAB 10 DAY SUPPLY FILLED 08-01-16 BUT STARTED TAKING 08-07-16 Patient Instructions Goal/Follow Up Appt: You have a appt with Dr Cano on 08/20 @ 3pm Patient Instructions: Discussed with the patient the importance of a strict 1800 lucila diet Return to The Hospital For: Worsening shortness of breath with hypoxia Activity & Diet Discharge Diet: ADA Diet (Low salt diet 1800cal) Activity as Tolerated: Yes Copy Copies To 1: ZAINAB CANO MD, HOLLY R MD Aug 10, 2016 12:56
== END 2016-08-10 13:30 | disposition home or self-care (01) | DRG 189 ==
LOC: OBSVTOIN 10:55 → 4TH 10:55
PROVIDERS: ADMIT Family Medicine; ATTEND Family Medicine
DX: J96.21 Acute and chronic respiratory failure with hypoxia (principal); E66.2 Morbid (severe) obesity with alveolar hypoventilation; J81.1 Chronic pulmonary edema; Z68.44 Body mass index [BMI] 60.0-69.9, adult; E11.9 Type 2 diabetes mellitus without complications; Z79.4 Long term (current) use of insulin; Z99.81 Dependence on supplemental oxygen; E78.5 Hyperlipidemia, unspecified; G89.29 Other chronic pain; K75.81 Nonalcoholic steatohepatitis (NASH); J44.9 Chronic obstructive pulmonary disease, unspecified; Z91.19 Patient's noncompliance with other medical treatment and regimen
CPT/HCPCS: 36415; 80053; 82962; 83036; 84484; 85007; 85025; 85027; 93005; 94640; 94660; 94760

== ENCOUNTER 2016-09-26 16:32 | Emergency (ER) | payer MEDICAID ==
[~2016-09-26] VITALS: Ht 162.6 cm; Wt 183.0 kg
[~2016-09-26 16:32] MED LIST changes: +CETI10TA17 PO; +IBUP-1780 PO
[2016-09-26] MEDS ORDERED: ASPIRIN 81 MG CHEW (CHILDREN'S ASA) PO ONE (16:45)
[2016-09-26 17:10] LABS: BASOPHILS % (AUTO) 0 % (0-10); EOSINOPHILS # (AUTO) 0.2 10^3/uL (0.0-0.3); EOSINOPHILS % (AUTO) 2 % (0-10); LYMPHOCYTES # (AUTO) 1.8 X 10^3 (1.0-4.0); LYMPHOCYTES % (AUTO) 21 % (12-44); MEAN CORPUSCULAR HEMOGLOBIN 30 PG (25-34); MEAN CORPUSCULAR HGB CONC 31 G/DL (32-36); MEAN CORPUSCULAR VOLUME 99 FL (80-99); MEAN PLATELET VOLUME 10.1 FL (7.4-10.4); MONOCYTES # (AUTO) 0.6 X 10^3 (0.0-1.0); MONOCYTES % (AUTO) 7 % (0-12); NEUTROPHILS % (AUTO) 70 % (42-75); PLATELET COUNT 244 10^3/uL (130-400); RED BLOOD COUNT 3.44 10^6/uL (4.35-5.85); RED CELL DISTRIBUTION WIDTH 16.6 % (10.0-14.5); WHITE BLOOD COUNT 8.6 10^3/uL (4.3-11.0)
[2016-09-26 17:22] LABS: INR 0.9 (0.8-1.4); PROTHROMBIN TIME PATIENT 12.3 SEC (12.2-14.7)
[2016-09-26 17:33] LABS: ALANINE AMINOTRANSFERASE 26 U/L (0-55); ALBUMIN 3.7 GM/DL (3.2-4.5); ANION GAP 10 MMOL/L (5-14); ASPARTATE AMINO TRANSFERASE 53 U/L (5-34); BILIRUBIN,TOTAL 0.3 MG/DL (0.1-1.0); BLOOD UREA NITROGEN 16 MG/DL (7-18); BUN/CREATININE RATIO 24 (0-20); CALCIUM 9.6 MG/DL (8.5-10.1); CARBON DIOXIDE 34 MMOL/L (21-32); CHLORIDE 97 MMOL/L (98-107); CREATININE SERUM 0.67 MG/DL (0.60-1.30); GFR ESTIMATED > 60; GLUCOSE 195 MG/DL (70-105); HEMOLYSIS 2 (0-29); ICTERUS 0.2 (0-1.9); LIPEMIA 7 (0-49); MAGNESIUM 1.6 MG/DL (1.8-2.4); POTASSIUM 4.4 MMOL/L (3.6-5.0); SODIUM 141 MMOL/L (135-145)
--- NOTE | 2016-09-26 17:41 | Diagnostic Imaging Report ---
INDICATION: Dyspnea and chest pain. 1716 hours. FINDINGS: Since 08/06/2016, there is continued cardiomegaly and pulmonary venous congestion. Airspace disease has slightly increased. There is no evidence of pneumothorax. IMPRESSION: Findings are suggestive of congestive heart failure with mild worsening of pulmonary edema. Dictated by: Dictated on workstation # [id number]
[2016-09-26 17:44] LABS: MYOGLOBIN SERUM 25.8 NG/ML (10.0-92.0)
[2016-09-26] MEDS ORDERED: RT-ALBUTEROL/IPRATROPIUM 3 ML (DUONEB) VIAL INH ONE (17:45)
--- NOTE | 2016-09-26 17:48 | ED Cough/URI ---
General Chief Complaint: Respiratory Problems Stated Complaint: CHEST PAIN/SOB Nursing Triage Note: PT C/O SOA WITH WORSENING OVER THE LAST SEVERAL DAYS. Source: patient Exam Limitations: no limitations History of Present Illness Time seen by provider: 17:48 Timing/Duration: this morning Allergies and Home Medications Allergies Coded Allergies: No Known Drug Allergies (Unverified , 08/08/16) Home Medications Albuterol Sulfate 8.5 Gm Hfa.aer.ad, 2 PUFF IH Q4H PRN for SHORTNESS OF BREATH, (Reported) Budesonide/Formoterol Fumarate 10.2 Gm Hfa.aer.ad, 2 PUFF IH BID, (Reported) Cetirizine HCl 10 Mg Tablet, 10 MG PO DAILY, (Reported) Folic Acid/Mv,Fe,Other Min 1 Each Tablet, 1 TAB PO DAILY, (Reported) Furosemide 40 Mg Tablet, 40 MG PO DAILY for 30 Days, #30 Prescribed by: TERENCE VOGT on 08/10/16 1253 Gemfibrozil 600 Mg Tablet, 600 MG PO BID, (Reported) Ibuprofen 600 Mg Tablet, 1,200 MG PO BID PRN for PAIN-MILD, (Reported) TAKES 2 (600MG) TABLETS Insulin Aspart 100 Unit/1 Ml Susp, 35 UNITS SQ AC, (Reported) Insulin Glargine,Hum.rec.anlog 100 Unit/1 Ml Vial, 50 UNITS SQ BID, (Reported) Ipratropium [place] 0.2 Mg/1 Ml Solution, 3 ML IH QID PRN for SHORTNESS OF BREATH, (Reported) Lisinopril 20 Mg Tablet, 20 MG PO DAILY, (Reported) Loperamide Hcl 2 Mg Capsule, PO UD PRN for DIARRHEA, (Reported) 2 CAPS INITIALLY, THEN 1 CAP AFTER EACH LOOSE STOOL. NOT TO EXCEED 8 CAPS/24 HRS. Metformin HCl 1,000 Mg Tablet, 1,000 MG PO BID WITH MEALS, (Reported) Montelukast Sodium 10 Mg Tablet, 10 MG PO DAILY, (Reported) Omeprazole 40 Mg Capsule.dr, 40 MG PO DAILY, (Reported) Pravastatin Sodium 40 Mg Tablet, 40 MG PO HS, (Reported) Pregabalin 150 Mg Capsule, 300 MG PO HS, (Reported) TAKES 2 (150 MG) CAPSULES Pregabalin 150 Mg Capsule, 150 MG PO 0800, (Reported) Pregabalin 150 Mg Capsule, 150 MG PO DAILY PRN for PAIN-BREAKTHROUGH, (Reported) TAKES IN THE MIDDLE OF THE NIGHT NEEDED FOR PAIN Ranitidine HCl 150 Mg Tablet, 300 MG PO HS, (Reported) TAKES 2 (150 MG) TABLETS Sucralfate 1 Gm Tablet, 1 GM PO ACHS, (Reported) Sulfamethoxazole/Trimethoprim 1 Each Tablet, 1 TAB PO BID for 10 Days, (Reported ) 10 DAY SUPPLY FILLED 08-01-16 BUT STARTED TAKING 08-07-16 Constitutional: see HPI, No chills, No fever EENTM: see HPI Respiratory: see HPI, No cough, No hemoptysis, No orthopnea, short of breath Cardiovascular: see HPI, No chest pain Genitourinary: no symptoms reported Musculoskeletal: no symptoms reported Skin: no symptoms reported Psychiatric/Neurological: No Symptoms Reported Past [place] Hx Patient Social History Alcohol Use: Denies Use Recreational Drug Use: No Type Used: Cigarettes 2nd Hand Smoke Exposure: No Recent Foreign Travel: No Contact w/Someone Who Travel: No Recent Infectious Disease Expo: No Recent Hopitalizations: No (RECENT ER TRIPS) Immunizations Up To Date Tetanus Booster (TDap): Unknown PED Vaccines UTD: No Date of Pneumonia Vaccine: Jan 13, 2012 Date of Influenza Vaccine: Feb 26, 2012 Seasonal Allergies Seasonal Allergies: No Surgeries HX Surgeries: Yes (abscess on abd , "BLADDER STRETCH") Surgeries: Adenoidectomy, Bladder Surgery, Tonsillectomy Respiratory Hx Respiratory Disorders: Yes (has Cpap (seldom wearing), wears home O2) Respiratory Disorders: Asthma, Sleep Apnea, COPD Cardiovascular Hx Cardiac Disorders: Yes Cardiac Disorders: Chronic Edema/Swelling, High Cholesterol, Hypertension Neurological Hx Neurological Disorders: No Reproductive System Hx Reproductive Disorders: No Sexually Transmitted Disease: No HIV/AIDS: No Female Reproductive Disorders: Denies Genitourinary Hx Genitourinary Disorders: No Gastrointestinal Hx Gastrointestinal Disorders: Yes Gastrointestinal Disorders: Gastroesophageal Reflux, Chronic Constipation Musculoskeletal Hx Musculoskeletal Disorders: No Musculoskeletal Disorders: Chronic Back Pain Endocrine Hx Endocrine Disorders: Yes (Type II, morbid obesity) Endocrine Disorders: Diabetes, Insulin dep HEENT HX ENT Disorders: No Loss of Vision: Denies Hearing Impairment: Denies Cancer Hx Cancer: No Psychosocial Hx Psychiatric Problems: Yes Behavioral Health Disorders: Anxiety, Depression Integumentary HX Skin/Integumentary Disorder: No (MULTIPLE ABCESSES REMOVED ABDOMEN) Skin/Integumentary Disorders: Eczema Blood Transfusions Hx Blood Disorders: No Adverse Reaction to a Blood Tr: No Family Medical History Significant Family History: Heart Disease, Seizures Family Medial History: Cancer 19 FATHER, Onset:Unknown 19 MOTHER, Onset:Unknown Cancer of colon 19 FATHER, Onset:Unknown 19 MOTHER, Onset:Unknown Family history: Cardiovascular disease 19 FATHER, Onset:Unknown 19 MOTHER, Onset:Unknown Family history: Diabetes mellitus 19 FATHER, Onset:Unknown 19 MOTHER, Onset:Unknown Physical Exam Vital Signs Vital Sign - Last 12Hours 09/26/16 09/26/16 16:53 16:57 Temp 99.1 Pulse 105 Resp 27 B/P (MAP) 144/82 Pulse Ox 87 O2 Delivery Nasal Cannula O2 Flow Rate 4.00 Capillary Refill : Less Than 3 Seconds General Appearance: WD/WN, no apparent distress, obese Eyes: Bilateral Eye EOMI, Bilateral Eye Normal Inspection, Bilateral Eye PERRL HEENT: PERRL/EOMI, normal ENT inspection Neck: non-tender, full range of motion Respiratory: no respiratory distress, no accessory muscle use, decreased breath sounds Cardiovascular: regular rate, rhythm, no murmur Gastrointestinal: normal bowel sounds, non tender, soft Neurologic/Psychiatric: alert, normal mood/affect, oriented x 3 Skin: normal color, warm/dry Progress/Results/Core Measures Results/Orders Lab Results Laboratory Tests Test 09/26/16 16:55 09/26/16 18:10 Range/Units White Blood Count 8.6 4.3-11.0 10^3/uL Red Blood Count 3.44 L 4.35-5.85 10^6/uL Hemoglobin 10.4 L 11.5-16.0 G/DL Hematocrit 34 L 35-52 % Mean Corpuscular Volume 99 80-99 FL Mean Corpuscular Hemoglobin 30 25-34 PG Mean Corpuscular Hemoglobin Concent 31 L 32-36 G/DL Red Cell Distribution Width 16.6 H 10.0-14.5 % Platelet Count 244 130-400 10^3/uL Mean Platelet Volume 10.1 7.4-10.4 FL Neutrophils (%) (Auto) 70 42-75 % Lymphocytes (%) (Auto) 21 12-44 % Monocytes (%) (Auto) 7 0-12 % Eosinophils (%) (Auto) 2 0-10 % Basophils (%) (Auto) 0 0-10 % Neutrophils # (Auto) 6.0 1.8-7.8 X 10^3 Lymphocytes # (Auto) 1.8 1.0-4.0 X 10^3 Monocytes # (Auto) 0.6 0.0-1.0 X 10^3 Eosinophils # (Auto) 0.2 0.0-0.3 10^3/uL Basophils # (Auto) 0.0 0.0-0.1 10^3/uL Prothrombin Time 12.3 12.2-14.7 SEC INR Comment 0.9 0.8-1.4 Activated Partial Thromboplast Time 28 24-35 SEC Sodium Level 141 135-145 MMOL/L Potassium Level 4.4 3.6-5.0 MMOL/L Chloride Level 97 L 98-107 MMOL/L Carbon Dioxide Level 34 H 21-32 MMOL/L Anion Gap 10 5-14 MMOL/L Blood Urea Nitrogen 16 7-18 MG/DL Creatinine 0.67 0.60-1.30 MG/DL Estimat Glomerular Filtration Rate > 60 BUN/Creatinine Ratio 24 H 0-20 Glucose Level 195 H 70-105 MG/DL Calcium Level 9.6 8.5-10.1 MG/DL Magnesium Level 1.6 L 1.8-2.4 MG/DL Total Bilirubin 0.3 0.1-1.0 MG/DL Aspartate Amino Transf (AST/SGOT) 53 H 5-34 U/L Alanine Aminotransferase (ALT/SGPT) 26 0-55 U/L Alkaline Phosphatase 100 40-136 U/L Myoglobin 25.8 10.0-92.0 NG/ML Troponin I < 0.30 <0.30 NG/ML Total Protein 6.0 L 6.4-8.2 GM/DL Albumin 3.7 3.2-4.5 GM/DL Blood Gas Puncture Site LT RAD Blood Gas Patient Temperature 99.1 Arterial Blood pH 7.36 L 7.37-7.43 Arterial Blood Partial Pressure CO2 66 H 35-45 MMHG Arterial Blood Partial Pressure O2 73 L 79-93 MMHG Arterial Blood HCO3 36 H 23-27 MMOL/L Arterial Blood Total CO2 38.2 H 21.0-31.0 MMOL/L Arterial Blood Oxygen Saturation 96 94-100 % Arterial Blood Base Excess 10.6 H -2.5-2.5 MMOL/L Mayank Test YES-POS Blood Gas Ventilator Setting NO Blood Gas Inspired Oxygen 3.5L My Orders Orders - DAVE MARIEE [employer] P[employer] Cbc With Automated Diff (09/26/16 16:44) Magnesium (09/26/16 16:44) Chest 1 View, Ap/Pa Only (09/26/16 16:44) Ekg Tracing (09/26/16 16:44) Cardiac Profile 1 (09/26/16 16:44) Comprehensive Metabolic Panel (09/26/16 16:44) Myoglobin Serum (09/26/16 16:44) Protime With Inr (09/26/16 16:44) Partial Thromboplastin Time (09/26/16 16:44) O2 (09/26/16 16:44) Monitor-Rhythm Ecg Trace Only (09/26/16 16:44) Aspirin Chewable Tablet (Baby Aspirin Ch (09/26/16 16:45) Saline Lock/Iv-Start (09/26/16 16:44) Albuterol/Ipra Inhalation Soln (Duoneb I (09/26/16 17:45) Svn Sm Volume Nebulizer Rt-Rfs (09/26/16 17:38) Furosemide Injection (Lasix Injection) (09/26/16 18:00) Arterial Blood Gas (09/26/16 18:12) Medications Given in ED Current Medications Medications Dose Ordered Sig/Carla Route Start Time Stop Time Status Last Admin Dose Admin Albuterol/ Ipratropium 3 ml ONCE ONCE INH 09/26/16 17:45 09/26/16 17:46 DC 09/26/16 18:09 3 ML Furosemide 40 mg ONCE ONCE IVP 09/26/16 18:00 09/26/16 18:01 DC 09/26/16 18:15 40 MG Vital Signs/I&O Vital Sign - Last 12Hours 09/26/16 09/26/16 09/26/16 09/26/16 16:53 16:57 18:11 18:57 Temp 99.1 Pulse 105 0 Resp 27 0 B/P (MAP) 144/82 Pulse Ox 87 96 0 O2 Delivery Nasal Cannula Nasal Cannula Nasal Cannula O2 Flow Rate 4.00 3.50 Blood Pressure Mean: 102 Diagnostic Imaging Diagonstic Imaging: Xray Plain Films/CT/US/NM/MRI: chest Comments NAME: ISAMAR BOYLE I MED REC#: [id number] PT STATUS: REG ER : 1975 PHYSICIAN: DAVE MARIEE APRN ADMIT DATE: 09/26/16/ER Draft Date of Exam:09/26/16 CHEST 1 VIEW, AP/PA ONLY INDICATION: Dyspnea and chest pain. 1716 hours. FINDINGS: Since 08/06/2016, there is continued cardiomegaly and pulmonary venous congestion. Airspace disease has slightly increased. There is no evidence of pneumothorax. IMPRESSION: Findings are suggestive of congestive heart failure with mild worsening of pulmonary edema. Dictated on workstation # [id number] Dict: 09/26/16 1722 Trans: 09/26/16 1740 [id number] Interpreted by: BISHOP COLLINS MD Electronically signed by: Departure Impression Impression: Primary Impression: Morbid obesity Additional Impression: COPD exacerbation Disposition: 01 HOME, SELF-CARE Condition: Stable Departure-Patient Inst. Decision time for Depature: 18:55 Referrals: ZAINAB HESS MD (PCP/Family) Primary Care Physician Patient Instructions: NO INSTRUCTIONS GIVEN Add. Discharge Instructions: All discharge instructions reviewed with patient and/or family. Voiced understanding. DAVE MARIEE APRN Sep 26, 2016 17:48
[2016-09-26] MEDS ORDERED: FUROSEMIDE 40 MG/4 ML INJ (LASIX) IVP ONE (18:00)
[2016-09-26 18:22] LABS: ABG BASE EXCESS 10.6 MMOL/L (-2.5-2.5); ABG HCO3 36 MMOL/L (23-27); ABG OXYGEN SATURATION 96 % (94-100); ABG PCO2 66 MMHG (35-45); ABG PH 7.36 (7.37-7.43); ABG PO2 73 MMHG (79-93); ABG TCO2 38.2 MMOL/L (21.0-31.0)
[2016-09-26 18:23] LABS: ALLENS TEST YES-POS; PATIENT TEMP 99.1
[2016-09-26 18:57] VITALS: BP 0/0
== END 2016-09-26 18:57 | disposition home or self-care (01) ==
LOC: EDUNIT# 16:32 → ER 16:36
DX: J44.1 Chronic obstructive pulmonary disease with (acute) exacerbation (principal); E66.01 Morbid (severe) obesity due to excess calories; E11.9 Type 2 diabetes mellitus without complications; I10 Essential (primary) hypertension; K21.9 Gastro-esophageal reflux disease without esophagitis; E78.00 Pure hypercholesterolemia, unspecified; F17.210 Nicotine dependence, cigarettes, uncomplicated; Z79.4 Long term (current) use of insulin; Z79.84 Long term (current) use of oral hypoglycemic drugs; Z68.44 Body mass index [BMI] 60.0-69.9, adult
CPT/HCPCS: 36415; 71010; 80053; 82805; 83735; 83874; 84484; 85025; 85610; 85730; 93005; 93041; 94640

== ENCOUNTER 2016-11-02 19:45 | Observation (INO) | payer MEDICAID ==
[~2016-11-02] VITALS: Ht 175.3 cm; Wt 216.2 kg
--- NOTE | 2016-11-02 19:57 | ED General ---
General Stated Complaint: LOW BP Source of Information: Patient Exam Limitations: No Limitations History of Present Illness Time Seen by Provider: 19:55 Initial Comments To ER per EMS from home with reports of shortness of breath and hypoxia as well as low blood pressure. EMS noted the patient to be very wheezy upon arrival. This started a DuoNeb treatment. Patient has reportedly been very lethargic for the past few days. She is supposed to use a C Pap at home while sleeping but she does not. EMS found her blood pressure to be 170s over 80s Timing/Duration: 1-2 Days Severity: Moderate Allergies and Home Medications Allergies Coded Allergies: No Known Drug Allergies (Unverified , 08/08/16) Home Medications Albuterol Sulfate 8.5 Gm Hfa.aer.ad, 2 PUFF IH Q4H PRN for SHORTNESS OF BREATH, (Reported) Budesonide/Formoterol Fumarate 10.2 Gm Hfa.aer.ad, 2 PUFF IH BID, (Reported) Cetirizine HCl 10 Mg Tablet, 10 MG PO DAILY, (Reported) Folic Acid/Mv,Fe,Other Min 1 Each Tablet, 1 TAB PO DAILY, (Reported) Furosemide 40 Mg Tablet, 40 MG PO DAILY for 30 Days, #30 Prescribed by: TERENCE VOGT on 08/10/16 1253 Gemfibrozil 600 Mg Tablet, 600 MG PO BID, (Reported) Ibuprofen 600 Mg Tablet, 1,200 MG PO BID PRN for PAIN-MILD, (Reported) TAKES 2 (600MG) TABLETS Insulin Aspart 100 Unit/1 Ml Susp, 35 UNITS SQ AC, (Reported) Insulin Glargine,Hum.rec.anlog 100 Unit/1 Ml Vial, 50 UNITS SQ BID, (Reported) Ipratropium [place] 0.2 Mg/1 Ml Solution, 3 ML IH QID PRN for SHORTNESS OF BREATH, (Reported) Lisinopril 20 Mg Tablet, 20 MG PO DAILY, (Reported) Loperamide Hcl 2 Mg Capsule, PO UD PRN for DIARRHEA, (Reported) 2 CAPS INITIALLY, THEN 1 CAP AFTER EACH LOOSE STOOL. NOT TO EXCEED 8 CAPS/24 HRS. Metformin HCl 1,000 Mg Tablet, 1,000 MG PO BID WITH MEALS, (Reported) Montelukast Sodium 10 Mg Tablet, 10 MG PO DAILY, (Reported) Omeprazole 40 Mg Capsule.dr, 40 MG PO DAILY, (Reported) Pravastatin Sodium 40 Mg Tablet, 40 MG PO HS, (Reported) Pregabalin 150 Mg Capsule, 300 MG PO HS, (Reported) TAKES 2 (150 MG) CAPSULES Pregabalin 150 Mg Capsule, 150 MG PO 0800, (Reported) Pregabalin 150 Mg Capsule, 150 MG PO DAILY PRN for PAIN-BREAKTHROUGH, (Reported) TAKES IN THE MIDDLE OF THE NIGHT NEEDED FOR PAIN Ranitidine HCl 150 Mg Tablet, 300 MG PO HS, (Reported) TAKES 2 (150 MG) TABLETS Sucralfate 1 Gm Tablet, 1 GM PO ACHS, (Reported) Sulfamethoxazole/Trimethoprim 1 Each Tablet, 1 TAB PO BID for 10 Days, (Reported ) 10 DAY SUPPLY FILLED 08-01-16 BUT STARTED TAKING 08-07-16 Constitutional: see HPI, No chills, No fever EENTM: see HPI Respiratory: see HPI, cough, short of breath Cardiovascular: see HPI, chest pain Genitourinary: no symptoms reported Musculoskeletal: no symptoms reported Skin: no symptoms reported Psychiatric/Neurological: No Symptoms Reported Hematologic/Lymphatic: No Symptoms Reported Past Vybslti-Flvlyh-Xtamkr Hx Patient Social History Type Used: Cigarettes 2nd Hand Smoke Exposure: No Recent Hopitalizations: No (RECENT ER TRIPS) Immunizations Up To Date Tetanus Booster (TDap): Unknown PED Vaccines UTD: No Date of Pneumonia Vaccine: Jan 13, 2012 Date of Influenza Vaccine: Feb 26, 2012 Seasonal Allergies Seasonal Allergies: No Surgeries HX Surgeries: Yes (abscess on abd , "BLADDER STRETCH") Surgeries: Adenoidectomy, Bladder Surgery, Tonsillectomy Respiratory Hx Respiratory Disorders: Yes (has Cpap (seldom wearing), wears home O2) Respiratory Disorders: Asthma, Sleep Apnea, COPD Cardiovascular Hx Cardiac Disorders: Yes Cardiac Disorders: Chronic Edema/Swelling, High Cholesterol, Hypertension Neurological Hx Neurological Disorders: No Reproductive System Hx Reproductive Disorders: No Sexually Transmitted Disease: No HIV/AIDS: No Female Reproductive Disorders: Denies Genitourinary Hx Genitourinary Disorders: No Gastrointestinal Hx Gastrointestinal Disorders: Yes Gastrointestinal Disorders: Gastroesophageal Reflux, Chronic Constipation Musculoskeletal Hx Musculoskeletal Disorders: No Musculoskeletal Disorders: Chronic Back Pain Endocrine Hx Endocrine Disorders: Yes (Type II, morbid obesity) Endocrine Disorders: Diabetes, Insulin dep HEENT HX ENT Disorders: No Loss of Vision: Denies Hearing Impairment: Denies Cancer Hx Cancer: No Psychosocial Hx Psychiatric Problems: Yes Behavioral Health Disorders: Anxiety, Depression Integumentary HX Skin/Integumentary Disorder: No (MULTIPLE ABCESSES REMOVED ABDOMEN) Skin/Integumentary Disorders: Eczema Blood Transfusions Hx Blood Disorders: No Adverse Reaction to a Blood Tr: No Family Medical History Significant Family History: Heart Disease, Seizures Family Medial History: Cancer 19 FATHER, Onset:Unknown 19 MOTHER, Onset:Unknown Cancer of colon 19 FATHER, Onset:Unknown 19 MOTHER, Onset:Unknown Family history: Cardiovascular disease 19 FATHER, Onset:Unknown 19 MOTHER, Onset:Unknown Family history: Diabetes mellitus 19 FATHER, Onset:Unknown 19 MOTHER, Onset:Unknown Physical Exam Vital Signs Vital Sign - Last 12Hours 11/02/16 11/02/16 19:45 20:07 Temp 97.8 Pulse 101 Resp 28 B/P (MAP) 105/39 Pulse Ox 83 O2 Delivery Room Air O2 Flow Rate 55.00 Capillary Refill : General Appearance: No Apparent Distress, WD/WN, Obese Eyes: Bilateral Eye Normal Inspection, Bilateral Eye PERRL HEENT: PERRL/EOMI, TMs Normal Neck: Full Range of Motion, Normal Inspection Respiratory: No Accessory Muscle Use, No Respiratory Distress, Decreased Breath Sounds Extremity: Normal Capillary Refill, Normal Inspection Neurologic/Psychiatric: Alert, Oriented x3 Skin: Normal Color, Warm/Dry Progress/Results/Core Measures Results/Orders Lab Results Laboratory Tests Test 11/02/16 18:17 11/02/16 19:55 11/02/16 19:56 Range/Units Blood Gas Puncture Site LT BRACH Blood Gas Patient Temperature 98.5 Arterial Blood pH 7.12 *L 7.37-7.43 Arterial Blood Partial Pressure CO2 115 *H 35-45 MMHG Arterial Blood Partial Pressure O2 26 *L 79-93 MMHG Arterial Blood HCO3 36 H 23-27 MMOL/L Arterial Blood Total CO2 39.4 H 21.0-31.0 MMOL/L Arterial Blood Oxygen Saturation 39 L 94-100 % Arterial Blood Base Excess 6.7 H -2.5-2.5 MMOL/L Mayank Test NA Blood Gas Ventilator Setting NO Blood Gas Inspired Oxygen 55% White Blood Count 10.8 4.3-11.0 10^3/uL Red Blood Count 3.07 L 4.35-5.85 10^6/uL Hemoglobin 9.4 L 11.5-16.0 G/DL Hematocrit 31 L 35-52 % Mean Corpuscular Volume 101 H 80-99 FL Mean Corpuscular Hemoglobin 31 25-34 PG Mean Corpuscular Hemoglobin Concent 30 L 32-36 G/DL Red Cell Distribution Width 18.4 H 10.0-14.5 % Platelet Count 276 130-400 10^3/uL Mean Platelet Volume 10.3 7.4-10.4 FL Neutrophils (%) (Auto) 77 H 42-75 % Lymphocytes (%) (Auto) 18 12-44 % Monocytes (%) (Auto) 4 0-12 % Eosinophils (%) (Auto) 1 0-10 % Basophils (%) (Auto) 0 0-10 % Neutrophils # (Auto) 8.3 H 1.8-7.8 X 10^3 Lymphocytes # (Auto) 1.9 1.0-4.0 X 10^3 Monocytes # (Auto) 0.5 0.0-1.0 X 10^3 Eosinophils # (Auto) 0.1 0.0-0.3 10^3/uL Basophils # (Auto) 0.0 0.0-0.1 10^3/uL Sodium Level 138 135-145 MMOL/L Potassium Level 5.8 H 3.6-5.0 MMOL/L Chloride Level 97 L 98-107 MMOL/L Carbon Dioxide Level 31 21-32 MMOL/L Anion Gap 10 5-14 MMOL/L Blood Urea Nitrogen 36 H 7-18 MG/DL Creatinine 1.23 0.60-1.30 MG/DL Estimat Glomerular Filtration Rate 48 BUN/Creatinine Ratio 29 Glucose Level 182 H 70-105 MG/DL Calcium Level 9.2 8.5-10.1 MG/DL Total Bilirubin 0.3 0.1-1.0 MG/DL Aspartate Amino Transf (AST/SGOT) 50 H 5-34 U/L Alanine Aminotransferase (ALT/SGPT) 26 0-55 U/L Alkaline Phosphatase 105 40-136 U/L Troponin I < 0.30 <0.30 NG/ML Total Protein 6.8 6.4-8.2 GM/DL Albumin 3.5 3.2-4.5 GM/DL My Orders Orders - DVAE MARIEE SAFETY TECH Cbc With Automated Diff (11/02/16 19:54) Comprehensive Metabolic Panel (11/02/16 19:54) Chest 1 View, Ap/Pa Only (11/02/16 19:54) Saline Lock/Iv-Start (11/02/16 19:54) Troponin I (11/02/16 19:57) Ekg Tracing (11/02/16 19:57) Arterial Blood Gas (11/02/16 20:20) Ns Iv 1000 Ml (Sodium Chloride 0.9%) (11/02/16 20:45) BNP (11/02/16 20:42) Vital Signs/I&O Vital Sign - Last 12Hours 11/02/16 11/02/16 19:45 20:07 Temp 97.8 Pulse 101 103 Resp 28 25 B/P (MAP) 105/39 Pulse Ox 83 82 O2 Delivery Room Air O2 Flow Rate 55.00 Diagnostic Imaging Diagonstic Imaging: Xray Plain Films/CT/US/NM/MRI: chest Comments I MED REC#: [id number] PT STATUS: REG ER : 1975 PHYSICIAN: DAVE MARIEE APRN ADMIT DATE: 11/02/16/ER Draft Date of Exam:11/02/16 CHEST 1 VIEW, AP/PA ONLY INDICATION: Shortness of air. COMPARISON: Study from 09/26/2016. EXAMINATION: Single view of the chest was obtained. FINDINGS: The body habitus limits exam sensitivity. The heart does appear at least mildly enlarged and there is some prominence of the central vascularity. No convincing evidence for pulmonary edema, pleural fluid or focal consolidation. IMPRESSION: Limited by portable AP technique and body habitus, mild cardiomegaly and venous congestion are noted but no noemi edema, pleural fluid or focal pneumonia. Dictated on workstation # [id number] Dict: 11/02/162015 Trans: 11/02/162030 [facility] [phone] Interpreted by: BISHOP CASTELLANO Electronically signed by: Departure Communication Time/Spoke to Admitting Phy: 20:52 Communication I discussed the case with Dr. Alcala. We'll admit the patient, consult Dr. Albright Time/Spoke to Consulting Physi: 20:52 Communication/Consulting I notified Dr. Albright of the Consult Impression Impression: Primary Impression: Morbid obesity Additional Impressions: COPD with hypoxia Hypercarbia Noncompliance by refusing intervention or support Disposition: 09 ADMITTED INPATIENT Condition: Stable Decision to Admit Reason: Admit from ER (General) Decision to Admit/Date: Nov 02, 2016 Time/Decision to Admit Time: 20:32 Departure-Patient Inst. Referrals: ZAINAB HESS MD (PCP/Family) Primary Care Physician DAVE MARIEE APRN Nov 02, 2016 19:57
[2016-11-02 20:07] VITALS: BP 105/39
[2016-11-02 20:09] LABS: BASOPHILS % (AUTO) 0 % (0-10); EOSINOPHILS # (AUTO) 0.1 10^3/uL (0.0-0.3); EOSINOPHILS % (AUTO) 1 % (0-10); LYMPHOCYTES # (AUTO) 1.9 X 10^3 (1.0-4.0); LYMPHOCYTES % (AUTO) 18 % (12-44); MEAN CORPUSCULAR HEMOGLOBIN 31 PG (25-34); MEAN CORPUSCULAR HGB CONC 30 G/DL (32-36); MEAN CORPUSCULAR VOLUME 101 FL (80-99); MEAN PLATELET VOLUME 10.3 FL (7.4-10.4); MONOCYTES # (AUTO) 0.5 X 10^3 (0.0-1.0); MONOCYTES % (AUTO) 4 % (0-12); NEUTROPHILS # (AUTO) 8.3 X 10^3 (1.8-7.8); NEUTROPHILS % (AUTO) 77 % (42-75); PLATELET COUNT 276 10^3/uL (130-400); RED BLOOD COUNT 3.07 10^6/uL (4.35-5.85); RED CELL DISTRIBUTION WIDTH 18.4 % (10.0-14.5); WHITE BLOOD COUNT 10.8 10^3/uL (4.3-11.0)
[2016-11-02 20:25] LABS: ABG BASE EXCESS 6.7 MMOL/L (-2.5-2.5); ABG HCO3 36 MMOL/L (23-27); ABG OXYGEN SATURATION 39 % (94-100); ABG TCO2 39.4 MMOL/L (21.0-31.0)
[2016-11-02 20:27] LABS: ABG PH 7.12 (7.37-7.43)
[2016-11-02 20:29] LABS: ALANINE AMINOTRANSFERASE 26 U/L (0-55); ALBUMIN 3.5 GM/DL (3.2-4.5); ANION GAP 10 MMOL/L (5-14); ASPARTATE AMINO TRANSFERASE 50 U/L (5-34); BILIRUBIN,TOTAL 0.3 MG/DL (0.1-1.0); BLOOD UREA NITROGEN 36 MG/DL (7-18); BUN/CREATININE RATIO 29; CALCIUM 9.2 MG/DL (8.5-10.1); CARBON DIOXIDE 31 MMOL/L (21-32); CHLORIDE 97 MMOL/L (98-107); CREATININE SERUM 1.23 MG/DL (0.60-1.30); GFR ESTIMATED 48; GLUCOSE 182 MG/DL (70-105); POTASSIUM 5.8 MMOL/L (3.6-5.0); SODIUM 138 MMOL/L (135-145); TOTAL PROTEIN 6.8 GM/DL (6.4-8.2)
[2016-11-02 20:30] LABS: ABG PCO2 115 MMHG (35-45); ABG PO2 26 MMHG (79-93); PATIENT TEMP 98.5
--- NOTE | 2016-11-02 20:31 | Diagnostic Imaging Report ---
INDICATION: Shortness of air. COMPARISON: Study from 09/26/2016. EXAMINATION: Single view of the chest was obtained. FINDINGS: The body habitus limits exam sensitivity. The heart does appear at least mildly enlarged and there is some prominence of the central vascularity. No convincing evidence for pulmonary edema, pleural fluid or focal consolidation. IMPRESSION: Limited by portable AP technique and body habitus, mild cardiomegaly and venous congestion are noted but no noemi edema, pleural fluid or focal pneumonia. Dictated by: Dictated on workstation # [id number]
[2016-11-02 20:34] LABS: TROPONIN I < 0.30 NG/ML (<0.30)
[2016-11-02] MEDS ORDERED: NS IV 1000 ML 1,000 ML IV SCH (20:45)
[2016-11-02] MEDS ORDERED: methylPREDNISolone 125 MG (Solu-MEDROL) VIAL IVP ONE (21:00)
[2016-11-03 02:36] LABS: BILIRUBIN,URINE NEGATIVE (NEGATIVE); KETONES,URINE NEGATIVE (NEGATIVE); LEUKOCYTE ESTERASE ,URINE 2+ (NEGATIVE); NITRITE,URINE NEGATIVE (NEGATIVE); PH,URINE 5 (5-9); PROTEIN,URINE 2+ (NEGATIVE); UROBILINOGEN,URINE NORMAL (NORMAL)
[2016-11-03 02:53] LABS: HYALINE CASTS, URINE RARE /LPF; SQUAMOUS EPITHELIAL CELL,UR 25-50 /HPF; WBC,URINE 25-50 /HPF
[2016-11-03 03:04] VITALS: BP 134/58
[2016-11-03] MEDS: methylPREDNISolone 125 MG (Solu-MEDROL) VIAL IV SCH ×2 (04:12→11:54)
[2016-11-03] MEDS ORDERED: RT-ALBUTEROL SULF 2.5 MG/3 ML PRE-MIX VIAL IH SCH (07:00)
[2016-11-03 08:10] VITALS: BP 128/76
[2016-11-03] MEDS ORDERED: IBUPROFEN 600 MG (MOTRIN) TAB PO PRN (10:30)
[2016-11-03] MEDS ORDERED: RT-IPRATROPIUM (ATROVENT) 0.5MG/2.5ML AMP IH PRN (10:30)
[2016-11-03] MEDS ORDERED: RT-ALBUTEROL SULF 2.5 MG/3 ML PRE-MIX VIAL IH PRN ×2 (10:30)
[2016-11-03] MEDS ORDERED: PRED10TA22 PO (10:31)
--- NOTE | 2016-11-03 10:37 | Short Stay Summary-Hospitalist ---
HPI History of Present Illness: HPI/Chief Complaint CC: Respiratory insufficiency with CO2 narcosis HPI: This is a 41-year-old white female with known sleep apnea and noncompliance with oxygen and sleep apnea treatment at home presents to the emergency room with confusion and altered mental status. She has had multiple ER visits and hospitalizations all of her life due to complications for morbid obesity. Her BMI is 70. She is placed on Cipro And improved rapidly through the night was given IV steroids for exacerbation of COPD and currently she is ready to go home and has no questions regarding her treatment plan. She is very noncompliant with medical treatment at home really needs a [facility] placement that her sister is compensated to take care of her and give her medications which appears to not be the best situation for the patient but she denies any significant pain and ready to go home. Source: patient, RN/MD Exam Limitations: no limitations Date Seen 11/03/16 Time Seen by Provider: 10:15 Attending Physician Christelle Alcala Bethany N MD Referring Physician Date of Admission Nov 02, 2016 at 20:43 Home Medications & Allergies Home Medications Reviewed patient Home Medication Reconciliation Form Allergies Allergies Coded Allergies No Known Drug Allergies (Unverified08/08/16) Past Uxrwuzk-Iwzxee-Agxqgy Hx Patient Social History Marrital Status: single Employed/Student: unemployed Alcohol Use: Denies Use Recreational Drug Use: No Smoking Status: Never a Smoker Type Used: Cigarettes 2nd Hand Smoke Exposure: No Physical Abuse Screen: No Sexual Abuse: No Recent Foreign Travel: No Contact w/other who traveled: No Recent Hopitalizations: No Recent Infectious Disease Expo: No Immunizations Up To Date Tetanus Booster (TDap): Unknown Date of Pneumonia Vaccine: Jan 13, 2012 Date of Influenza Vaccine: Feb 26, 2012 Seasonal Allergies Seasonal Allergies: No Surgeries HX Surgeries: Yes (abscess on abd , "BLADDER STRETCH") Surgeries: Adenoidectomy, Bladder Surgery, Tonsillectomy Respiratory Hx Respiratory Disorders: Yes (has Cpap (seldom wearing), wears home O2) Respiratory Disorders: COPD, Sleep Apnea Cardiovascular Hx Cardiovascular Disorders: Yes Cardiac Disorders: Chronic Edema/Swelling, High Cholesterol, Hypertension Neurological Hx Neurological Disorders: No Reproductive System Hx Reproductive Disorders: No Sexually Transmitted Disease: No HIV/AIDS: No Female Reproductive Disorders: Denies Genitourinary Hx Genitourinary Disorders: No Gastrointestinal Hx Gastrointestinal Disorders: Yes Gastrointestinal Disorders: Gastroesophageal Reflux, Chronic Constipation Musculoskeletal Hx Musculoskeletal Disorders: No Musculoskeletal Disorders: Chronic Back Pain Endocrine Hx Endocrine Disorders: Yes (Type II, morbid obesity) Endocrine Disorders: Diabetes, Insulin dep HEENT HX ENT Disorders: No Loss of Vision: Denies Hearing Impairment: Denies Cancer Hx Cancer: No Psychosocial Hx Psychiatric Problems: Yes Behavioral Health Disorders: Anxiety, Depression Integumentary HX Skin/Integumentary Disorder: No (MULTIPLE ABCESSES REMOVED ABDOMEN) Skin/Integumentary Disorders: Eczema Blood Transfusions Hx Blood Disorders: No Adverse Reaction to a Blood Tr: No Family Medical History Significant Family History: Heart Disease, Seizures Family Hx: Cancer 19 FATHER, Onset:Unknown 19 MOTHER, Onset:Unknown Cancer of colon 19 FATHER, Onset:Unknown 19 MOTHER, Onset:Unknown Family history: Cardiovascular disease 19 FATHER, Onset:Unknown 19 MOTHER, Onset:Unknown Family history: Diabetes mellitus 19 FATHER, Onset:Unknown 19 MOTHER, Onset:Unknown Review of Systems Constitutional: see HPI, weakness EENTM: no symptoms reported Respiratory: short of breath Cardiovascular: no symptoms reported Gastrointestinal: no symptoms reported Genitourinary: no symptoms reported Musculoskeletal: back pain Skin: no symptoms reported Psychiatric/Neurological: Anxiety, Depressed All Other Systems Reviewed Negative Unless Noted: Yes Physical Exam Physical Exam Vital Signs Vital Sign - Last 12Hours 11/02/16 11/02/16 11/02/16 19:45 20:07 22:00 Temp 97.8 Pulse 101 Resp 28 B/P (MAP) 105/39 Pulse Ox 83 O2 Delivery Room Air O2 Flow Rate 55.00 FiO2 55 Capillary Refill : Less Than 3 Seconds General Appearance: No Apparent Distress, WD/WN, Chronically ill, Obese Eyes: Bilateral Eye Normal Inspection, Bilateral Eye PERRL HEENT: PERRL/EOMI, Normal ENT Inspection, Pharynx Normal Neck: Full Range of Motion, Normal Inspection, Non Tender, Supple, Carotid Bruit Respiratory: Chest Non Tender, Normal Breath Sounds, No Accessory Muscle Use, No Respiratory Distress, Decreased Breath Sounds Cardiovascular: Regular Rate, Rhythm, No Edema, No Gallop, No JVD, No Murmur, Normal Peripheral Pulses Gastrointestinal: Normal Bowel Sounds, No Organomegaly, No Pulsatile Mass, Non Tender, Soft Back: Normal Inspection, No CVA Tenderness, No Vertebral Tenderness Extremity: Normal Capillary Refill, Normal Inspection, Normal Range of Motion, Non Tender, No Calf Tenderness, No Pedal Edema Neurologic/Psychiatric: Alert, Oriented x3, No Motor/Sensory Deficits, Normal Mood/Affect Skin: Normal Color, Warm/Dry Lymphatic: No Adenopathy Results Results/Procedures Lab Laboratory Tests 11/02/16 19:56 Short Stay Diagnosis Discharge Diagnosis-Short Stay Admission Diagnosis Assessment: Acute respiratory insufficiency on chronic respiratory failure noncompliant with sleep apnea treatment and COPD treatment at home Super morbid obesity Diabetes mellitus Hypertension Depression Chronic pain Final Discharge Diagnosis Assessment: Acute respiratory insufficiency on chronic respiratory failure noncompliant with sleep apnea treatment and COPD treatment at home Super morbid obesity Diabetes mellitus Hypertension Depression Chronic pain Conclusion Plan Plan: Discharge home Short course of steroids Maintain sleep apnea treatment with oxygen and CPAP but she reports that she declines to do so Prognosis very poor due to noncompliance and super morbid obesity Clinical Quality Measures DVT/VTE Risk/Contraindication: Risk Factor Score Per Nursin RFS Level Per Nursing on Admit: 4+=Very High CHRISTELLE ALCALA DO Nov 03, 2016 10:37
[2016-11-03] MEDS ORDERED: SUCRALFATE 1 GM (CARAFATE) TAB PO SCH (11:00)
[2016-11-03] MEDS ORDERED: inSUlin ASPART (NovoLOG) 1 UNIT/0.01 ML (CHARGE PER UNIT) SQ SCH (11:00)
[2016-11-03] MEDS ORDERED: metFORMIN 500 MG (GLUCOPHAGE) TAB PO SCH (17:00)
[2016-11-03] MEDS ORDERED: RT-ADVAIR HFA 115/21 MCG PER PUFF IH SCH (20:00)
[2016-11-03] MEDS ORDERED: FAMOTIDINE 20 MG (PEPCID) TABLET PO SCH (21:00)
[2016-11-03] MEDS ORDERED: inSUlin DETERMIR 1 UNIT/0.01 ML (LEVEMIR) CHARGE PER UNIT SQ SCH (21:00)
[2016-11-03] MEDS ORDERED: SIMvastatin 20 MG (ZOCOR) TAB PO SCH (21:00)
[2016-11-03] MEDS ORDERED: PREGABALIN 100 MG (LYRICA) CAPSULE PO SCH (21:00)
[2016-11-03] MEDS ORDERED: GEMFIBROZIL 600 MG (LOPID) TAB PO SCH (21:00)
[2016-11-04] MEDS ORDERED: PANTOPRAZOLE 40 MG (PROTONIX) TAB PO SCH (07:00)
[2016-11-04] MEDS ORDERED: MULTIVIT W/MINERALS TAB (THERAGRAN M) PO SCH (07:00)
[2016-11-04] MEDS ORDERED: lisINopril 20 MG (ZESTRIL) TAB PO SCH (09:00)
[2016-11-04] MEDS ORDERED: FUROSEMIDE 40 MG (LASIX) TAB PO SCH (09:00)
[2016-11-04] MEDS ORDERED: MONTELUKAST 10 MG (SINGULAIR) TAB PO SCH (09:00)
[2016-11-04] MEDS ORDERED: LORATADINE (CLARITIN) 10 MG TAB PO SCH (09:00)
== END 2016-11-03 12:35 | disposition home or self-care (01) ==
LOC: EDUNIT# 19:50 → ER 19:52 → 4TH 20:43
PROVIDERS: ADMIT Internal Medicine; ATTEND Internal Medicine
DX: J96.91 Respiratory failure, unspecified with hypoxia (principal); E66.01 Morbid (severe) obesity due to excess calories; Z68.45 Body mass index [BMI] 70 or greater, adult; J44.9 Chronic obstructive pulmonary disease, unspecified; I10 Essential (primary) hypertension; E11.9 Type 2 diabetes mellitus without complications; R33.9 Retention of urine, unspecified; G89.29 Other chronic pain; Z79.4 Long term (current) use of insulin; Z79.899 Other long term (current) drug therapy; Z91.19 Patient's noncompliance with other medical treatment and regimen
CPT/HCPCS: 36415; 71010; 80053; 81000; 82805; 82962; 83880; 84484; 85025; 87088; 93005; 94640; 94660; 94760; 96374; G0378

== ENCOUNTER 2016-12-27 12:30 | Inpatient (IN) | payer MEDICAID ==
[~2016-12-27] VITALS: Ht 175.3 cm; Wt 117.0 kg
[~2016-12-27 12:30] MED LIST changes: +AZIT250T12 PO; -AZIT250T5 PO; +PRED10TA22 PO; +ZIPR20CA24 PO
--- OUTSIDE RECORDS SUMMARY | 2016-12-27 13:11 | XMS REPORT | Clinical Summary ---
Author Author [facility] Organization [facility] Address Unknown Phone Unavailable Care Team Providers Care Storeroom Clerk Name Role Phone PCP Unavailable Source Comments Some departments are not documenting in the electronic medical record. If you do not see the information that you expected, contact Release of Information in the Health Information Management department at [phone] for further assistance in locating additional records.[facility] Allergies Not on File Current Medications Prescription Sig. [...] Problems Problem Noted Date Difficulty voiding 09/14/2012 Family History Medical History Relation Name Comments Cancer Maternal Grandfather Heart Attack Mother Heart Disease Mother Stroke Mother Relation Name Status Comments Maternal Grandfather Mother Social History Tobacco Use Types Packs/Day Years Used Date Never Smoker Alcohol Use Drinks/Week oz/Week Comments No Sex Assigned at Date Recorded Not on file Last Filed Vital Signs Vital Sign Reading Time Taken Blood Pressure 120/72 09/10/2012 1:28 PM CDT Pulse 84 09/10/2012 1:28 PM CDT Temperature - - Respiratory Rate 20 09/10/2012 1:28 PM CDT Oxygen Saturation - - Inhaled Oxygen - - Concentration Weight 208.7 kg (460 lb) 09/10/2012 1:28 PM CDT Height 162.6 cm (5' 4") 09/10/2012 1:28 PM CDT Body Mass Index 78.96 09/10/2012 1:28 PM CDT Plan of Treatment Health Maintenance Due Date Last Done Comments PHYSICAL (COMPREHENSIVE) 1980 EXAM PERTUSSIS VACCINE 1984 TETANUS VACCINE 1990 CERVICAL CANCER SCREENING 10/12/2003 BREAST CANCER SCREENING 2013 INFLUENZA VACCINE 12/13/2016 Results Not on filefrom Last 3 Months
--- OUTSIDE RECORDS SUMMARY | 2016-12-27 13:13 | XMS REPORT ---
Author Author JIMENA ZAINAB [facility] Address [address] [place] [address] Care Team Providers Care Motocross Racer Name Role Phone KELSEY HESSY Unavailable PROBLEMS Type Condition ICD9-CM Code [id number] Code Onset Dates Condition Status SNOMED Code Problem Primary insomnia F51.01 Active 937429746 Problem Type 2 diabetes mellitus with hyperglycemia E11.65 Active 41112455 Problem Major depressive disorder, recurrent, unspecified F33.9 Active 351864812 Problem Acute and chronic respiratory failure with hypoxia J96.21 Active 97223188398363100 Problem Microalbuminuria R80.9 Active 261729875 Problem Dysphagia, unspecified type R13.10 Active 53598683 Problem 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 Active 391270208423 Problem Morbid obesity with alveolar hypoventilation E66.2 Active 186099877 Problem Chronic tension-type headache, intractable G44.221 Active 381028007 Problem Type 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 Active 43648310 Problem MRSA (methicillin resistant Staphylococcus aureus) A49.02 Active 897858256 Problem Recurrent cellulitis L03.90 Active 530346745 Problem Chronic diarrhea K52.9 Active 562837069 Problem Chronic nausea R11.0 Active 681850125 Problem Gastroesophageal reflux disease, esophagitis presence not specified K21.9 Active 661397456 Problem Tinnitus of both ears H93.13 Active 8780441525006 Problem Essential hypertension I10 Active 71055258 Problem Anxiety F41.9 Active 66360381 Problem Lymphedema I89.0 Active 657297106 Problem Hypertriglyceridemia E78.1 Active 631880315 Problem Meralgia paresthetica, unspecified laterality G57.10 Active 45643140 Problem Obstructive sleep apnea G47.33 Active 50918085 Problem Low back pain M54.5 Active 371116664 ALLERGIES Unknown Allergies SOCIAL HISTORY No smoking Hx information available PLAN OF CARE VITAL SIGNS MEDICATIONS Medication Instructions Dosage Frequency Start Date End Date Duration Status Ondansetron [address] ONE TABLET ON THE TONGUE AND ALLOW TO DISSOLVE EVERY 8 HOURS NEEDED 10 Active Lyrica 150 MG TAKE 2 CAPSULES BY MOUTH TWICE DAILY 30 Active RESULTS No Results PROCEDURES No Known procedures IMMUNIZATIONS No Known Immunizations
--- OUTSIDE RECORDS SUMMARY | 2016-12-27 13:14 | XMS REPORT ---
Author Author JIMENA ZAINAB [facility] Address [address] [place] [address] Care Team Providers Care Associate Consulting Engineer Name Role Phone KELSEY HESSY Unavailable PROBLEMS Type Condition ICD9-CM Code [id number] Code Onset Dates Condition Status SNOMED Code Problem Primary insomnia F51.01 Active 055713968 Problem Type 2 diabetes mellitus with hyperglycemia E11.65 Active 48394607 Problem Major depressive disorder, recurrent, unspecified F33.9 Active 663395830 Problem Acute and chronic respiratory failure with hypoxia J96.21 Active 63822721542505163 Problem Microalbuminuria R80.9 Active 841951968 Problem Dysphagia, unspecified type R13.10 Active 64111551 Problem 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 Active 167752047049 Problem Morbid obesity with alveolar hypoventilation E66.2 Active 073394321 Problem Chronic tension-type headache, intractable G44.221 Active 391392971 Problem Type 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 Active 77897512 Problem MRSA (methicillin resistant Staphylococcus aureus) A49.02 Active 170040427 Problem Recurrent cellulitis L03.90 Active 470346089 Problem Chronic diarrhea K52.9 Active 393491535 Problem Chronic nausea R11.0 Active 571771918 Problem Gastroesophageal reflux disease, esophagitis presence not specified K21.9 Active 826879518 Problem Tinnitus of both ears H93.13 Active 9765564617189 Problem Essential hypertension I10 Active 32119140 Problem Anxiety F41.9 Active 62163342 Problem Lymphedema I89.0 Active 395776447 Problem Hypertriglyceridemia E78.1 Active 897342731 Problem Meralgia paresthetica, unspecified laterality G57.10 Active 97929968 Problem Obstructive sleep apnea G47.33 Active 15287703 Problem Low back pain M54.5 Active 456282676 ALLERGIES No Known Allergies SOCIAL HISTORY No smoking Hx information available PLAN OF CARE VITAL SIGNS MEDICATIONS No Known Medications RESULTS No Results PROCEDURES No Known procedures IMMUNIZATIONS No Known Immunizations
--- OUTSIDE RECORDS SUMMARY | 2016-12-27 13:14 | XMS REPORT ---
Author Author JIMENA ZAINAB [facility] Address [address] [place] [address] Care Team Providers Care Core Drill Operator Name Role Phone KELSEY HESSY Unavailable PROBLEMS Type Condition ICD9-CM Code [id number] Code Onset Dates Condition Status SNOMED Code Problem Primary insomnia F51.01 Active 125246623 Problem Type 2 diabetes mellitus with hyperglycemia E11.65 Active 16239013 Problem Major depressive disorder, recurrent, unspecified F33.9 Active 970820578 Problem Acute and chronic respiratory failure with hypoxia J96.21 Active 88665905074745858 Problem Microalbuminuria R80.9 Active 561238724 Problem Dysphagia, unspecified type R13.10 Active 64386841 Problem 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 Active 500091197259 Problem Morbid obesity with alveolar hypoventilation E66.2 Active 385918232 Problem Chronic tension-type headache, intractable G44.221 Active 794548889 Problem Type 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 Active 15622868 Problem MRSA (methicillin resistant Staphylococcus aureus) A49.02 Active 824406093 Problem Recurrent cellulitis L03.90 Active 677146363 Problem Chronic diarrhea K52.9 Active 051781916 Problem Chronic nausea R11.0 Active 450552824 Problem Gastroesophageal reflux disease, esophagitis presence not specified K21.9 Active 275947508 Problem Tinnitus of both ears H93.13 Active 8523728436274 Problem Essential hypertension I10 Active 27793380 Problem Anxiety F41.9 Active 28078734 Problem Lymphedema I89.0 Active 947611865 Problem Hypertriglyceridemia E78.1 Active 871283178 Problem Meralgia paresthetica, unspecified laterality G57.10 Active 84700822 Problem Obstructive sleep apnea G47.33 Active 38025339 Problem Low back pain M54.5 Active 305942952 ALLERGIES No Known Allergies SOCIAL HISTORY No smoking Hx information available PLAN OF CARE VITAL SIGNS MEDICATIONS No Known Medications RESULTS No Results PROCEDURES No Known procedures IMMUNIZATIONS No Known Immunizations
[2016-12-27] MEDS ORDERED: DOCUSATE SODIUM 100 MG (COLACE) CAP PO PRN (13:15)
[2016-12-27] MEDS ORDERED: ONDANSETRON 4 MG/5 ML ORAL SOLN (ZOFRAN) 5 ML PO PRN (13:15)
--- OUTSIDE RECORDS SUMMARY | 2016-12-27 13:17 | XMS REPORT ---
Author Author JIMENA ZAINAB [facility] Address [address] [place] [address] Care Team Providers Care Electric Frying Pan Repairer Name Role Phone ZAINAB HESS Unavailable PROBLEMS Type Condition ICD9-CM Code [id number] Code Onset Dates Condition Status SNOMED Code Problem Primary insomnia F51.01 Active 315764947 Problem Type 2 diabetes mellitus with hyperglycemia E11.65 Active 18183945 Problem Major depressive disorder, recurrent, unspecified F33.9 Active 064921589 Problem Acute and chronic respiratory failure with hypoxia J96.21 Active 09658144412505791 Problem Microalbuminuria R80.9 Active 790747185 Problem Dysphagia, unspecified type R13.10 Active 72546360 Problem 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 Active 345743551829 Problem Morbid obesity with alveolar hypoventilation E66.2 Active 084072244 Problem Chronic tension-type headache, intractable G44.221 Active 386527946 Problem Type 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 Active 32587164 Problem MRSA (methicillin resistant Staphylococcus aureus) A49.02 Active 684183244 Problem Recurrent cellulitis L03.90 Active 751036134 Problem Chronic diarrhea K52.9 Active 722643246 Problem Chronic nausea R11.0 Active 501344848 Problem Gastroesophageal reflux disease, esophagitis presence not specified K21.9 Active 208790645 Problem Tinnitus of both ears H93.13 Active 6691062540588 Problem Essential hypertension I10 Active 12103093 Problem Anxiety F41.9 Active 24704329 Problem Lymphedema I89.0 Active 617603756 Problem Hypertriglyceridemia E78.1 Active 653037694 Problem Meralgia paresthetica, unspecified laterality G57.10 Active 30042038 Problem Obstructive sleep apnea G47.33 Active 39772263 Problem Low back pain M54.5 Active 039605733 ALLERGIES No Known Allergies SOCIAL HISTORY No smoking Hx information available PLAN OF CARE VITAL SIGNS MEDICATIONS Medication Instructions Dosage Frequency Start Date End Date Duration Status Benzonatate 200 mg Orally Three times a day 1 capsule as needed 8h 18 Apr, 2016 Active RESULTS No Results PROCEDURES No Known procedures IMMUNIZATIONS No Known Immunizations
--- OUTSIDE RECORDS SUMMARY | 2016-12-27 13:17 | XMS REPORT ---
Author Author RUBEN ISIDRO [facility] Address [address] [place] [address] Care Team Providers Care Jammer Operator Name Role Phone RUBEN ISIDRO Unavailable PROBLEMS Type Condition ICD9-CM Code [id number] Code Onset Dates Condition Status SNOMED Code Problem Primary insomnia F51.01 Active 525080364 Problem Type 2 diabetes mellitus with hyperglycemia E11.65 Active 53830583 Problem Major depressive disorder, recurrent, unspecified F33.9 Active 799366110 Problem Acute and chronic respiratory failure with hypoxia J96.21 Active 53424233249145463 Problem Microalbuminuria R80.9 Active 695858491 Problem Dysphagia, unspecified type R13.10 Active 39590635 Problem 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 Active 215011214795 Problem Morbid obesity with alveolar hypoventilation E66.2 Active 809231743 Problem Chronic tension-type headache, intractable G44.221 Active 992899633 Problem Type 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 Active 71272925 Problem MRSA (methicillin resistant Staphylococcus aureus) A49.02 Active 538814892 Problem Recurrent cellulitis L03.90 Active 265856592 Problem Chronic diarrhea K52.9 Active 414769022 Problem Chronic nausea R11.0 Active 688480477 Problem Gastroesophageal reflux disease, esophagitis presence not specified K21.9 Active 479335799 Problem Tinnitus of both ears H93.13 Active 9570575007547 Problem Essential hypertension I10 Active 27881121 Problem Anxiety F41.9 Active 39275709 Problem Lymphedema I89.0 Active 883011430 Problem Hypertriglyceridemia E78.1 Active 585994200 Problem Meralgia paresthetica, unspecified laterality G57.10 Active 52870337 Problem Obstructive sleep apnea G47.33 Active 75474402 Problem Low back pain M54.5 Active 944677018 ALLERGIES Substance Reaction Event Type Date Status Amitriptyline HCl Unknown Drug Allergy Mar, Active Hydrocodone-acetaminophen 7.5-500 Mg Tablet Violated narcotics contract Non Drug Allergy Mar, Active SOCIAL HISTORY No smoking Hx information available PLAN OF CARE Activity Details Follow Up as scheduled with PCP Reason: VITAL SIGNS Height 63 in 2016-04-03 Weight 475 lbs 2016-04-03 Temperature 98.6 degrees Fahrenheit 2016-04-03 Heart Rate 96 bpm 2016-04-03 Respiratory Rate 24 2016-04-03 BMI 84.13 kg/m2 2016-04-03 Blood pressure systolic 120 mmHg 2016-04-03 Blood pressure diastolic 80 mmHg 2016-04-03 MEDICATIONS Medication Instructions Dosage Frequency Start Date End Date Duration Status ProAir HFA 108 (90 Base) MCG/ACT Inhalation every 4 hrs 2 puffs as needed 4h Active Lantus SoloStar 100 UNIT/ML INJECT 50 UNITS SUBCUTANEOUSLY TWICE DAILY DIRECTED 15 Active Test strips Test Strips test blood sugar 6h 16 Oct, 2014 Active Metformin HCl 1000 MG TAKE 1 TABLET BY MOUTH WITH MEALS TWICE DAILY -DR ASKS THAT YOU MAKE AN APPOINTMENT 30 Active UltiCare Mini Pen Essie 31G X 6 MM USE DIRECTED 12 Active Ibuprofen 600 MG TAKE 1 TABLET BY MOUTH FOUR TIMES A DAY 30 Active Cyclobenzaprine HCl 10 MG TAKE 1 TABLET BY MOUTH THREE TIMES DAILY FOR MUSCLE SPASM ORALLY 30 Active Bactrim DS 800-160 MG Orally Twice a day 1 tablet 12h Mar,Mar 10 day(s) Active Insulin Syringe 31G X 5/16 as directed 6h Jun, Active NovoLog 100 UNIT/ML Subcutaneous 3 times a day 17 units 8h Jun, Active Ipratropium [place] 0.02 % Active PredniSONE 20 mg Orally Once a day 3 tabs for 1 day then decerase by 1/2 tab daily 24h Feb, Active Loratadine 10 MG TAKE 1 TABLET BY MOUTH EVERY DAY 30 Active Gemfibrozil 600 MG Orally Twice a day 1 tablet 12h Active Omeprazole 40 MG TAKE 1 CAPSULE BY MOUTH EVERY DAY 30 Active Lisinopril 20 MG Active Pravastatin Sodium 40 MG Orally Once a day 1 tablet 24h Active Loperamide HCl 2 MG TAKE 2 CAPSULES BY MOUTH AFTER FIRST LOOSE STOOL THEN TAKE 1 CAPSULE AFTER EACH LOOSE STOOL - MAX 8 PER DAY 5 Active Lyrica 150 MG TAKE 2 CAPSULES BY MOUTH TWICE DAILY 30 Active Montelukast Sodium 10 MG TAKE 1 TABLET BY MOUTH EVERY DAY 30 Active Ranitidine HCl 150 MG TAKE 2 TABLETS BY MOUTH DAILY AT BEDTIME 30 Active Symbicort 160-4.5 MCG/ACT Inhalation Twice a day 1 puffs 12h Active [place] 5-325 MG Orally every 6 hrs 1 tablet as needed 6h 4 days Active Ondansetron [address] ONE TABLET ON THE TONGUE AND ALLOW TO DISSOLVE EVERY 8 HOURS NEEDED 10 Active Lantus 100 UNIT/ML Subcutaneous Twice a day 50 units 12h 10 Jun, 2015 30 Active RESULTS No Results PROCEDURES Procedure Date Ordered Related Diagnosis Body Site Office Visit, Est Pt., Level 3 Apr 03, 2016 IMMUNIZATIONS No Known Immunizations
--- NOTE | 2016-12-27 13:18 | History & Physicial (CHS) ---
HPI History of Present Illness: 41 yo female who is dependent on supplemental oxygen at baseline with morbid obesity presented to clinic with increasing shortness of breath and weight gain in spite of taking home lasix and increasing home dose to 80 mg daily for a few days. She reports over the last 2 weeks progressive cough, oxygen levels decreasing into the 70s with home monitor with going from her room to the bathroom and marked swelling from feet through perineum and up to level of umbilicus today. In clinic she was noted to have 32 lb weight gain in 2 week period and oxygen level of 85-87 with any movement on her baseline supplemental oxygen. She also complains of runny nose and intermittent low blood sugars for which she eats half a candy bar. Date seen by provider: Dec 27, 2016 Time Seen by Provider: 12:00 Attending Physician Zainab Cano MD PCP Zainab Cano MD Consult Date of Admission Dec 27, 2016 at 13:06 Home Medications Home Medications Reviewed patient Home Medication Reconciliation Form Allergies Coded Allergies: No Known Drug Allergies (Unverified , 08/08/16) [id number] Hx Patient Social History Type Used: Cigarettes 2nd Hand Smoke Exposure: No Recent Foreign Travel: No Contact w/other who traveled: No Recent Hopitalizations: No Immunizations Up To Date Tetanus Booster (TDap): Unknown Date of Pneumonia Vaccine: Jan 13, 2012 Date of Influenza Vaccine: Feb 26, 2012 Past Medical History 1. Dyspnea- related to chronic hypoxia. On home O2, and inhaler 2. Chest Pain- acute coronary syndrome has been ruled out in multiple admissions. Most likely musculoskeletal. 3. Morbid Obesity 4. Insulin Dependent DM 5. HLP-on fenofibrate and statin 6. Psychiatric Issues 7. Urinary issues- Seen by Dr. Eleni Recio 8. Chronic Lymphedema 10. Obstructive Sleep Apnea- Wears CPAP sometimes 11. History of elevated LFT Family Medical History Significant Family History: Heart Disease, Seizures Review of Systems ([facility]) Constitutional: No fever, weight gain EENTM: nose congestion Respiratory: cough, dyspnea on exertion, orthopnea, short of breath Cardiovascular: chest pain (intermittent, none currently) Gastrointestinal: abdominal pain Genitourinary: no symptoms reported Musculoskeletal: joint pain, muscle pain Skin: no symptoms reported Psychiatric/Neurological: Anxiety Physical Exam-([facility]) Physical Exam Vital Signs Capillary Refill : General Appearance: moderate distress, obese Respiratory: respiratory distress (increased rate, shallow, cannot speak in full sentences), accessory muscle use, other (difficult to auscultate due to body habitus, possible wheeze, she is unable to take deep breath without becoming dizzy) Cardiovascular: regular rate, rhythm, no murmur, other (difficult to asuculatate due to body habitus) Gastrointestinal: normal bowel sounds, soft, tenderness, other (pitting edema with mild erythema over lower abdomen up to umbilicus) Extremities: pedal edema (2+ pitting edema extending to abdomen) Neurologic/Psychiatric: alert, oriented x 3 Skin: normal color, warm/dry Assessment/Plan Assessment/Plan Admission Dx Hypoxia, suspect pulmonary edema Suspect acute congestive heart failure Morbid obesity Diabetes mellitus type II, insulin dependent Plan Hypoxia, suspect pulmonary edema- increasing weight gain in spite of home furosemide and worsening hypoxia, will start IV furosemide and RT protocol, increase her supplemental oxygen as needed -CXR on admit, check BNP, CBC, CMP Suspect acute congestive heart failure- check BNP, difficult to determine given inability to obtain adequate echocardiogram due to body habitus, unable historically to obtain stress testing due to body habitus. Consider Cardiology consult. Morbid obesity- BMI over 90 Diabetes mellitus type II, insulin dependent- resume home insulin, diabetic diet , sliding scale insulin DVT ppx- enoxaparin Diagnosis/Problems: Copy Copies To 1: ZAINAB CANO MD, BETHANY N MD Dec 27, 2016 13:18
--- OUTSIDE RECORDS SUMMARY | 2016-12-27 13:18 | XMS REPORT ---
Author Author JIMENA ZAINAB [facility] Address [address] [place] [address] Care Team Providers Care Wheel And Axle Inspector Name Role Phone ZAINAB HESS Unavailable PROBLEMS Type Condition ICD9-CM Code WVG12-SW Code Onset Dates Condition Status SNOMED Code Problem Primary insomnia F51.01 Active 271054795 Problem Type 2 diabetes mellitus with hyperglycemia E11.65 Active 32563852 Problem Major depressive disorder, recurrent, unspecified F33.9 Active 160759449 Problem Acute and chronic respiratory failure with hypoxia J96.21 Active 88144284785593358 Problem Microalbuminuria R80.9 Active 821569873 Problem Dysphagia, unspecified type R13.10 Active 53313154 Problem 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 Active 188682624812 Problem Morbid obesity with alveolar hypoventilation E66.2 Active 431034242 Problem Chronic tension-type headache, intractable G44.221 Active 696246678 Problem Type 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 Active 74577052 Problem MRSA (methicillin resistant Staphylococcus aureus) A49.02 Active 043633256 Problem Recurrent cellulitis L03.90 Active 611274701 Problem Chronic diarrhea K52.9 Active 002402531 Problem Chronic nausea R11.0 Active 863875186 Problem Gastroesophageal reflux disease, esophagitis presence not specified K21.9 Active 417534639 Problem Tinnitus of both ears H93.13 Active 7955048028442 Problem Essential hypertension I10 Active 06336059 Problem Anxiety F41.9 Active 85021059 Problem Lymphedema I89.0 Active 161751938 Problem Hypertriglyceridemia E78.1 Active 697616324 Problem Meralgia paresthetica, unspecified laterality G57.10 Active 85227924 Problem Obstructive sleep apnea G47.33 Active 50827005 Problem Low back pain M54.5 Active 960506535 ALLERGIES Unknown Allergies SOCIAL HISTORY No smoking Hx information available PLAN OF CARE VITAL SIGNS MEDICATIONS Medication Instructions Dosage Frequency Start Date End Date Duration Status Ibuprofen 600 MG Orally 4 times a day 1 tablet as needed 6h 30 days Active RESULTS No Results PROCEDURES No Known procedures IMMUNIZATIONS No Known Immunizations
--- OUTSIDE RECORDS SUMMARY | 2016-12-27 13:18 | XMS REPORT ---
Author Author JIMENAZAINAB [facility] Address [address] [place] [address] Care Team Providers Care Senior Accounting Clerk Name Role Phone ZAINAB HESS Unavailable PROBLEMS Type Condition ICD9-CM Code ELL23-XI Code Onset Dates Condition Status SNOMED Code Problem Anxiety F41.9 Active 16422213 Problem Tinnitus of both ears H93.13 Active 1024311621861 Problem Low back pain M54.5 Active 309185979 Problem Acute and chronic respiratory failure with hypoxia J96.21 Active 85637840712167563 Problem Chronic nausea R11.0 Active 918096288 Problem Dysphagia, unspecified type R13.10 Active 02160079 Problem Chronic diarrhea K52.9 Active 602751491 Problem Microalbuminuria R80.9 Active 072205157 Problem Chronic tension-type headache, intractable G44.221 Active 301847285 Problem Type 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 Active 38339778 Problem MRSA (methicillin resistant Staphylococcus aureus) A49.02 Active 988876159 Problem Recurrent cellulitis L03.90 Active 842208805 Problem Hypertriglyceridemia E78.1 Active 778147404 Problem Primary insomnia F51.01 Active 704408515 Problem Obstructive sleep apnea G47.33 Active 89004881 Problem Lymphedema I89.0 Active 258130529 Problem Type 2 diabetes mellitus with hyperglycemia E11.65 Active 63296487 Problem Essential hypertension I10 Active 52015743 Problem Gastroesophageal reflux disease, esophagitis presence not specified K21.9 Active 642075948 Problem Meralgia paresthetica, unspecified laterality G57.10 Active 86512084 Problem 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 Active 425351797719 Problem Major depressive disorder, recurrent, unspecified F33.9 Active 337105382 Problem Morbid obesity with alveolar hypoventilation E66.2 Active 224993124 ALLERGIES Unknown Allergies SOCIAL HISTORY No smoking Hx information available PLAN OF CARE VITAL SIGNS MEDICATIONS Medication Instructions Dosage Frequency Start Date End Date Duration Status NovoLog 100 UNIT/ML Subcutaneous 3 times a day 17 units 8h 10 Jun, 2015 Active Lantus 100 UNIT/ML Subcutaneous Twice a day 50 units 12h Jun, 30 Active RESULTS No Results PROCEDURES No Known procedures IMMUNIZATIONS No Known Immunizations
--- OUTSIDE RECORDS SUMMARY | 2016-12-27 13:18 | XMS REPORT ---
Author Author CHARLENE CURTIS [facility] Address [address] [place] [address] Care Team Providers Care Cipher Expert Name Role Phone CHARLENE CURTIS Unavailable PROBLEMS Type Condition ICD9-CM Code JWE66-GZ Code Onset Dates Condition Status SNOMED Code Problem Primary insomnia F51.01 Active 049475096 Problem Type 2 diabetes mellitus with hyperglycemia E11.65 Active 46847835 Problem Major depressive disorder, recurrent, unspecified F33.9 Active 195602135 Problem Acute and chronic respiratory failure with hypoxia J96.21 Active 49783109293402369 Problem Microalbuminuria R80.9 Active 184291837 Problem Dysphagia, unspecified type R13.10 Active 74649242 Problem 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 Active 012704847253 Problem Morbid obesity with alveolar hypoventilation E66.2 Active 398025581 Problem Chronic tension-type headache, intractable G44.221 Active 223068494 Problem Type 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 Active 32317813 Problem MRSA (methicillin resistant Staphylococcus aureus) A49.02 Active 522270431 Problem Recurrent cellulitis L03.90 Active 380221155 Problem Chronic diarrhea K52.9 Active 171677804 Problem Chronic nausea R11.0 Active 106205019 Problem Gastroesophageal reflux disease, esophagitis presence not specified K21.9 Active 974436080 Problem Tinnitus of both ears H93.13 Active 6783928926208 Problem Essential hypertension I10 Active 65708924 Problem Anxiety F41.9 Active 92333783 Problem Lymphedema I89.0 Active 041538171 Problem Hypertriglyceridemia E78.1 Active 670694335 Problem Meralgia paresthetica, unspecified laterality G57.10 Active 16733145 Problem Obstructive sleep apnea G47.33 Active 37932457 Problem Low back pain M54.5 Active 989513776 ALLERGIES Unknown Allergies SOCIAL HISTORY No smoking Hx information available PLAN OF CARE VITAL SIGNS MEDICATIONS Medication Instructions Dosage Frequency Start Date End Date Duration Status Macrobid 100 MG Orally 2 times a day 1 capsule with food 12h 10 Apr, 2016 Apr, 7 day(s) Active RESULTS No Results PROCEDURES No Known procedures IMMUNIZATIONS No Known Immunizations
--- OUTSIDE RECORDS SUMMARY | 2016-12-27 13:18 | XMS REPORT ---
Author Author JIMENA ZAINAB [facility] Address [address] [place] [address] Care Team Providers Care Marking Devices Assembler Name Role Phone ZAINAB HESS Unavailable PROBLEMS Type Condition ICD9-CM Code AAT85-RB Code Onset Dates Condition Status SNOMED Code Problem Primary insomnia F51.01 Active 996107908 Problem Type 2 diabetes mellitus with hyperglycemia E11.65 Active 08713684 Problem Major depressive disorder, recurrent, unspecified F33.9 Active 512566395 Problem Acute and chronic respiratory failure with hypoxia J96.21 Active 38931449604981071 Problem Microalbuminuria R80.9 Active 274216395 Problem Dysphagia, unspecified type R13.10 Active 22010479 Problem 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 Active 578964785428 Problem Morbid obesity with alveolar hypoventilation E66.2 Active 588692344 Problem Chronic tension-type headache, intractable G44.221 Active 691945673 Problem Type 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 Active 11082013 Problem MRSA (methicillin resistant Staphylococcus aureus) A49.02 Active 649142269 Problem Recurrent cellulitis L03.90 Active 214099053 Problem Chronic diarrhea K52.9 Active 230023550 Problem Chronic nausea R11.0 Active 233880189 Problem Gastroesophageal reflux disease, esophagitis presence not specified K21.9 Active 166946543 Problem Tinnitus of both ears H93.13 Active 6753565959944 Problem Essential hypertension I10 Active 37747778 Problem Anxiety F41.9 Active 08321063 Problem Lymphedema I89.0 Active 525114942 Problem Hypertriglyceridemia E78.1 Active 708733821 Problem Meralgia paresthetica, unspecified laterality G57.10 Active 65067515 Problem Obstructive sleep apnea G47.33 Active 52596690 Problem Low back pain M54.5 Active 285908596 ALLERGIES Unknown Allergies SOCIAL HISTORY No smoking Hx information available PLAN OF CARE VITAL SIGNS MEDICATIONS Medication Instructions Dosage Frequency Start Date End Date Duration Status Pravastatin Sodium 40 mg Orally Once a day 1 tablet 24h 90 days Active Cyclobenzaprine HCl 10 MG Orally Three times a day 1 tablet 8h 90 days Active Montelukast Sodium 10 mg Orally Once a day 1 tablet in the evening 24h 90 days Active Ondansetron 8 MG Orally every 8 hours, PRN 1 tablet on the tongue and allow to dissolve 90 days Active NovoLog 100 UNIT/ML Subcutaneous 3 times a day 30 units 8h 10 Jun, 2015 30 days Active ProAir HFA 108 (90 Base) MCG/ACT Inhalation every 4 hrs 2 puffs as needed 4h 30 days Active Omeprazole 40 mg Orally Once a day 1 capsule 24h 90 days Active Symbicort 160-4.5 MCG/ACT Inhalation Twice a day 2 puffs 12h Active Lantus 100 UNIT/ML Subcutaneous Twice a day 55 units 12h Jun, 30 days Active Metformin HCl 1000 MG Orally 2 times a day 1 tablet with meals 12h 90 days Active Cetirizine HCl 10 mg Orally Once a day 1 tablet 24h 12 Apr, 2016 90 days Active Gemfibrozil 600 MG Orally Twice a day 1 tablet 12h 90 days Active Lyrica 150 MG Orally 2 times a day 2 capsules 12h 90 days Active Ipratropium [place] 0.02 % Inhalation every 8 hours, PRN 2.5 ml 30 days Active Lisinopril 20 MG Orally Once a day 1 tablet 24h 90 days Active Ranitidine HCl 150 MG Orally Once a day 2 tablets at bedtime 24h 90 days Active RESULTS No Results PROCEDURES No Known procedures IMMUNIZATIONS No Known Immunizations
--- OUTSIDE RECORDS SUMMARY | 2016-12-27 13:19 | XMS REPORT ---
Author Author JIMENAZAINAB RIVERA Organization [facility] [place] Address [address] [place] [address] Care Team Providers Care Pattern Generator Operator Name Role Phone ZAINAB HESS Unavailable PROBLEMS Type Condition ICD9-CM Code [id number] Code Onset Dates Condition Status SNOMED Code Problem Anxiety F41.9 Active 21726428 Problem Tinnitus of both ears H93.13 Active 8364684987094 Problem Low back pain M54.5 Active 235487838 Problem Acute and chronic respiratory failure with hypoxia J96.21 Active 15737324201702031 Problem Chronic nausea R11.0 Active 934820660 Problem Dysphagia, unspecified type R13.10 Active 56052578 Problem Chronic diarrhea K52.9 Active 013043204 Problem Microalbuminuria R80.9 Active 117475930 Problem Chronic tension-type headache, intractable G44.221 Active 860003342 Problem Type 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 Active 08095886 Problem MRSA (methicillin resistant Staphylococcus aureus) A49.02 Active 060801413 Problem Recurrent cellulitis L03.90 Active 738844443 Problem Hypertriglyceridemia E78.1 Active 988322198 Problem Primary insomnia F51.01 Active 296921741 Problem Obstructive sleep apnea G47.33 Active 93843188 Problem Lymphedema I89.0 Active 125672817 Problem Type 2 diabetes mellitus with hyperglycemia E11.65 Active 10933102 Problem Essential hypertension I10 Active 94893867 Problem Gastroesophageal reflux disease, esophagitis presence not specified K21.9 Active 677496461 Problem Meralgia paresthetica, unspecified laterality G57.10 Active 39729501 Problem 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
--- OUTSIDE RECORDS SUMMARY | 2016-12-27 13:20 | XMS REPORT ---
Author Author JIMENA ZAINAB [facility] Address [address] [place] [address] Care Team Providers Care Electrical Electronics Engineers Name Role Phone ZAINAB HESS Unavailable PROBLEMS Type Condition ICD9-CM Code [id number] Code Onset Dates Condition Status SNOMED Code Problem Primary insomnia F51.01 Active 524093198 Problem Type 2 diabetes mellitus with hyperglycemia E11.65 Active 38875996 Problem Major depressive disorder, recurrent, unspecified F33.9 Active 381666475 Problem Acute and chronic respiratory failure with hypoxia J96.21 Active 49384905535032639 Problem Microalbuminuria R80.9 Active 202984319 Problem Dysphagia, unspecified type R13.10 Active 86702666 Problem 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 Active 292454106753 Problem Morbid obesity with alveolar hypoventilation E66.2 Active 842860657 Problem Chronic tension-type headache, intractable G44.221 Active 407923437 Problem Type 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 Active 23856596 Problem MRSA (methicillin resistant Staphylococcus aureus) A49.02 Active 945413923 Problem Recurrent cellulitis L03.90 Active 027969905 Problem Chronic diarrhea K52.9 Active 000435571 Problem Chronic nausea R11.0 Active 766182254 Problem Gastroesophageal reflux disease, esophagitis presence not specified K21.9 Active 084663057 Problem Tinnitus of both ears H93.13 Active 1086861030392 Problem Essential hypertension I10 Active 04514178 Problem Anxiety F41.9 Active 03394302 Problem Lymphedema I89.0 Active 270038695 Problem Hypertriglyceridemia E78.1 Active 745959083 Problem Meralgia paresthetica, unspecified laterality G57.10 Active 87508678 Problem Obstructive sleep apnea G47.33 Active 91202832 Problem Low back pain M54.5 Active 830895834 ALLERGIES Unknown Allergies SOCIAL HISTORY No smoking Hx information available PLAN OF CARE VITAL SIGNS MEDICATIONS Medication Instructions Dosage Frequency Start Date End Date Duration Status Bactroban 2 % Externally to infected skin areas Three times a day 1 application to affected area 8h Jun, Apr, 14 days Active RESULTS No Results PROCEDURES No Known procedures IMMUNIZATIONS No Known Immunizations
[2016-12-27] MEDS ORDERED: FUROSEMIDE 40 MG/4 ML INJ (LASIX) IVP NR (13:21)
--- OUTSIDE RECORDS SUMMARY | 2016-12-27 13:21 | XMS REPORT ---
Author Author JIMENAZAINAB RIVERA Organization [facility] Address [address] [place] [address] Care Team Providers Care Mechanical Research Engineer Name Role Phone ZAINAB HESS Unavailable PROBLEMS Type Condition ICD9-CM Code [id number] Code Onset Dates Condition Status SNOMED Code Problem Primary insomnia F51.01 Active 878757102 Problem Type 2 diabetes mellitus with hyperglycemia E11.65 Active 32823475 Problem Major depressive disorder, recurrent, unspecified F33.9 Active 964708591 Problem Acute and chronic respiratory failure with hypoxia J96.21 Active 36074611517395687 Problem Microalbuminuria R80.9 Active 717036558 Problem Dysphagia, unspecified type R13.10 Active 99303687 Problem 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 Active 528102039683 Problem Morbid obesity with alveolar hypoventilation E66.2 Active 427292038 Problem Chronic tension-type headache, intractable G44.221 Active 506359868 Problem Type 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 Active 99027124 Problem MRSA (methicillin resistant Staphylococcus aureus) A49.02 Active 437081986 Problem Recurrent cellulitis L03.90 Active 990140120 Problem Chronic diarrhea K52.9 Active 286253410 Problem Chronic nausea R11.0 Active 725561532 Problem Gastroesophageal reflux disease, esophagitis presence not specified K21.9 Active 065997572 Problem Tinnitus of both ears H93.13 Active 8902864680612 Problem Essential hypertension I10 Active 07794308 Problem Anxiety F41.9 Active 35098322 Problem Lymphedema I89.0 Active 928769613 Problem Hypertriglyceridemia E78.1 Active 561498169 Problem Meralgia paresthetica, unspecified laterality G57.10 Active 93028595 Problem Obstructive sleep apnea G47.33 Active 84847562 Problem Low back pain M54.5 Active 422975211 ALLERGIES Unknown Allergies SOCIAL HISTORY No smoking Hx information available PLAN OF CARE VITAL SIGNS MEDICATIONS Unknown Medications RESULTS No Results PROCEDURES No Known procedures IMMUNIZATIONS No Known Immunizations
--- OUTSIDE RECORDS SUMMARY | 2016-12-27 13:23 | XMS REPORT ---
Author Author JIMENA ZAINAB [facility] Address [address] [place] [address] Care Team Providers Care Process Developer Name Role Phone KELSEY HESSY Unavailable PROBLEMS Type Condition ICD9-CM Code [id number] Code Onset Dates Condition Status SNOMED Code Problem Primary insomnia F51.01 Active 179055336 Problem Type 2 diabetes mellitus with hyperglycemia E11.65 Active 79361069 Problem Major depressive disorder, recurrent, unspecified F33.9 Active 758042775 Problem Acute and chronic respiratory failure with hypoxia J96.21 Active 83217445287308590 Problem Microalbuminuria R80.9 Active 330550857 Problem Dysphagia, unspecified type R13.10 Active 18028865 Problem 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 Active 833279706911 Problem Morbid obesity with alveolar hypoventilation E66.2 Active 668418401 Problem Chronic tension-type headache, intractable G44.221 Active 430336617 Problem Type 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 Active 27157474 Problem MRSA (methicillin resistant Staphylococcus aureus) A49.02 Active 576305588 Problem Recurrent cellulitis L03.90 Active 484344939 Problem Chronic diarrhea K52.9 Active 029519127 Problem Chronic nausea R11.0 Active 329731183 Problem Gastroesophageal reflux disease, esophagitis presence not specified K21.9 Active 315294164 Problem Tinnitus of both ears H93.13 Active 9568176909282 Problem Essential hypertension I10 Active 73261145 Problem Anxiety F41.9 Active 91324958 Problem Lymphedema I89.0 Active 665937416 Problem Hypertriglyceridemia E78.1 Active 844985915 Problem Meralgia paresthetica, unspecified laterality G57.10 Active 13432450 Problem Obstructive sleep apnea G47.33 Active 16694187 Problem Low back pain M54.5 Active 668085080 ALLERGIES No Known Allergies SOCIAL HISTORY No smoking Hx information available PLAN OF CARE VITAL SIGNS MEDICATIONS No Known Medications RESULTS No Results PROCEDURES No Known procedures IMMUNIZATIONS No Known Immunizations
--- OUTSIDE RECORDS SUMMARY | 2016-12-27 13:23 | XMS REPORT ---
Author Author JIMENAZAINAB RIVERA Organization [facility] Address [address] [place] [address] Care Team Providers Care Brood Station Manager Name Role Phone ZAINAB HESS Unavailable PROBLEMS Type Condition ICD9-CM Code AKV26-IP Code Onset Dates Condition Status SNOMED Code Problem Anxiety F41.9 Active 10392332 Problem Tinnitus of both ears H93.13 Active 9011867221874 Problem Low back pain M54.5 Active 330497418 Problem Acute and chronic respiratory failure with hypoxia J96.21 Active 83437872571305177 Problem Chronic nausea R11.0 Active 301029716 Problem Dysphagia, unspecified type R13.10 Active 83700464 Problem Chronic diarrhea K52.9 Active 255880445 Problem Microalbuminuria R80.9 Active 979447421 Problem Chronic tension-type headache, intractable G44.221 Active 307569972 Problem Type 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 Active 58656129 Problem MRSA (methicillin resistant Staphylococcus aureus) A49.02 Active 917335875 Problem Recurrent cellulitis L03.90 Active 808317637 Problem Hypertriglyceridemia E78.1 Active 923797750 Problem Primary insomnia F51.01 Active 848701870 Problem Obstructive sleep apnea G47.33 Active 46929081 Problem Lymphedema I89.0 Active 811631975 Problem Type 2 diabetes mellitus with hyperglycemia E11.65 Active 47176566 Problem Essential hypertension I10 Active 79957569 Problem Gastroesophageal reflux disease, esophagitis presence not specified K21.9 Active 892931009 Problem Meralgia paresthetica, unspecified laterality G57.10 Active 26912665 Problem 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
--- OUTSIDE RECORDS SUMMARY | 2016-12-27 13:25 | XMS REPORT ---
Author Author JIMENA ZAINAB [facility] Address [address] [place] [address] Care Team Providers Care Permit Specialist Name Role Phone KELSEY HESSY Unavailable PROBLEMS Type Condition ICD9-CM Code [id number] Code Onset Dates Condition Status SNOMED Code Problem Primary insomnia F51.01 Active 440758961 Problem Type 2 diabetes mellitus with hyperglycemia E11.65 Active 77882055 Problem Major depressive disorder, recurrent, unspecified F33.9 Active 150526066 Problem Acute and chronic respiratory failure with hypoxia J96.21 Active 65637114795101176 Problem Microalbuminuria R80.9 Active 182283524 Problem Dysphagia, unspecified type R13.10 Active 33916288 Problem 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 Active 274350539031 Problem Morbid obesity with alveolar hypoventilation E66.2 Active 263644305 Problem Chronic tension-type headache, intractable G44.221 Active 633058775 Problem Type 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 Active 26279572 Problem MRSA (methicillin resistant Staphylococcus aureus) A49.02 Active 366825438 Problem Recurrent cellulitis L03.90 Active 508864610 Problem Chronic diarrhea K52.9 Active 878888041 Problem Chronic nausea R11.0 Active 299322283 Problem Gastroesophageal reflux disease, esophagitis presence not specified K21.9 Active 961992587 Problem Tinnitus of both ears H93.13 Active 3510016744799 Problem Essential hypertension I10 Active 90452572 Problem Anxiety F41.9 Active 65895381 Problem Lymphedema I89.0 Active 788074429 Problem Hypertriglyceridemia E78.1 Active 006614890 Problem Meralgia paresthetica, unspecified laterality G57.10 Active 17288777 Problem Obstructive sleep apnea G47.33 Active 84754924 Problem Low back pain M54.5 Active 387409236 ALLERGIES No Known Allergies SOCIAL HISTORY No smoking Hx information available PLAN OF CARE VITAL SIGNS MEDICATIONS No Known Medications RESULTS No Results PROCEDURES No Known procedures IMMUNIZATIONS No Known Immunizations
--- OUTSIDE RECORDS SUMMARY | 2016-12-27 13:26 | XMS REPORT ---
Author Author CHARLENE CURTIS [facility] Address [address] [place] [address] Care Team Providers Care Supply Chain Tech Name Role Phone CHARLENE CURTIS Unavailable PROBLEMS Type Condition ICD9-CM Code KSR64-SZ Code Onset Dates Condition Status SNOMED Code Problem Primary insomnia F51.01 Active 772589657 Problem Type 2 diabetes mellitus with hyperglycemia E11.65 Active 03372533 Problem Major depressive disorder, recurrent, unspecified F33.9 Active 177352113 Problem Acute and chronic respiratory failure with hypoxia J96.21 Active 93075727807109640 Problem Microalbuminuria R80.9 Active 500836450 Problem Dysphagia, unspecified type R13.10 Active 82685437 Problem 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 Active 379345691533 Problem Morbid obesity with alveolar hypoventilation E66.2 Active 462733246 Problem Chronic tension-type headache, intractable G44.221 Active 688014535 Problem Type 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 Active 74777321 Problem MRSA (methicillin resistant Staphylococcus aureus) A49.02 Active 263221837 Problem Recurrent cellulitis L03.90 Active 061254721 Problem Chronic diarrhea K52.9 Active 850224759 Problem Chronic nausea R11.0 Active 021519464 Problem Gastroesophageal reflux disease, esophagitis presence not specified K21.9 Active 710283338 Problem Tinnitus of both ears H93.13 Active 6061926238978 Problem Essential hypertension I10 Active 01221857 Problem Anxiety F41.9 Active 22363672 Problem Lymphedema I89.0 Active 496413895 Problem Hypertriglyceridemia E78.1 Active 369478114 Problem Meralgia paresthetica, unspecified laterality G57.10 Active 54091254 Problem Obstructive sleep apnea G47.33 Active 46877951 Problem Low back pain M54.5 Active 618862757 ALLERGIES Substance Reaction Event Type Date Status Amitriptyline HCl Unknown Drug Allergy Apr, Active Hydrocodone-acetaminophen 7.5-500 Mg Tablet Violated narcotics contract Non Drug Allergy Apr, Active SOCIAL HISTORY No smoking Hx information available PLAN OF CARE Activity Details Follow Up prn Reason: VITAL SIGNS Height 63 in 2016-04-16 Weight 346.2 lbs 2016-04-16 Temperature 98.0 degrees Fahrenheit 2016-04-16 Heart Rate 100 bpm 2016-04-16 Respiratory Rate 22 2016-04-16 Oximetry 98 % 2016-04-16 BMI 61.32 kg/m2 2016-04-16 Blood pressure systolic 136 mmHg 2016-04-16 Blood pressure diastolic 82 mmHg 2016-04-16 MEDICATIONS Medication Instructions Dosage Frequency Start Date End Date Duration Status Loperamide HCl 2 MG TAKE 2 CAPSULES BY MOUTH AFTER FIRST LOOSE STOOL THEN TAKE 1 CAPSULE AFTER EACH LOOSE STOOL - MAX 8 PER DAY 5 Active Ipratropium [place] 0.02 % Active Ranitidine HCl 150 MG TAKE 2 TABLETS BY MOUTH DAILY AT BEDTIME 30 Active Lisinopril 20 MG Active Omeprazole 40 MG TAKE 1 CAPSULE BY MOUTH EVERY DAY 30 Active Metformin HCl 1000 MG TAKE 1 TABLET BY MOUTH WITH MEALS TWICE DAILY -DR ASKS THAT YOU MAKE AN APPOINTMENT 30 Active Ondansetron [address] ONE TABLET ON THE TONGUE AND ALLOW TO DISSOLVE EVERY 8 HOURS NEEDED 10 Active Montelukast Sodium 10 MG TAKE 1 TABLET BY MOUTH EVERY DAY 30 Active [place] 5-325 MG Orally every 6 hrs 1 tablet as needed 6h 4 days Active ProAir HFA 108 (90 Base) MCG/ACT Inhalation every 4 hrs 2 puffs as needed 4h Active Test strips Test Strips test blood sugar 6h Oct, Active Gemfibrozil 600 MG Orally Twice a day 1 tablet 12h Active Ibuprofen 600 MG TAKE 1 TABLET BY MOUTH FOUR TIMES A DAY 30 Active NovoLog 100 UNIT/ML Subcutaneous 3 times a day 17 units 8h Jun, Active Lantus SoloStar 100 UNIT/ML INJECT 50 UNITS SUBCUTANEOUSLY TWICE DAILY DIRECTED 15 Active UltiCare Mini Pen [place] 31G X 6 MM USE DIRECTED 12 Active Symbicort 160-4.5 MCG/ACT Inhalation Twice a day 1 puffs 12h Active Cyclobenzaprine HCl 10 MG TAKE 1 TABLET BY MOUTH THREE TIMES DAILY FOR MUSCLE SPASM ORALLY 30 Active Pravastatin Sodium 40 MG Orally Once a day 1 tablet 24h Active Lantus 100 UNIT/ML Subcutaneous Twice a day 50 units 12h Jun, 30 Active PredniSONE 20 mg Orally Once a day 3 tabs for 1 day then decerase by 1/2 tab daily 24h Feb, Active Insulin Syringe 31G X 5/16 as directed 6h Jun, Active Lyrica 150 MG TAKE 2 CAPSULES BY MOUTH TWICE DAILY 30 Active Loratadine 10 MG TAKE 1 TABLET BY MOUTH EVERY DAY 30 Active Bactrim 400-80 MG Orally twice a day 1 tablet 12h Apr, Apr, 10 day(s) Active RESULTS Name Result Date Reference Range A1C (IN HOUSE) 2016-04-16 A1C IN HOUSE 8.5 4.3 - 5.6 % Previous A1c 8.7 Lot [id number] Exp date 01/2018 MICROALBUMIN, URINE (IN HOUSE) 2016-04-16 MICROALBUMIN abnormal Lot # [id number] Exp date 02/2017 Clarity slightly cloudy Color orange ALB 150 CRE 300 A:C (IN HOUSE) 30-300 Control Control Lot # Exp TEST, URINE (IN HOUSE) 2016-04-16 RESULTS negative Lot # [id number] Control + Exp date 07/2017 UA LONG DIP (IN HOUSE) 2016-04-16 Lot # [id number] Exp date 02/2017 Clarity slightly cloudy Color orange Odor none GLU 3+ BASSEM negative KET negative SG 1.025 BLO 3+ pH 5.5 Protein 2+ URO 0.2 NIT negative PRISCILLA negative Lot # Exp MICROALBUMIN/CREATININE RATIO, URINE 2016-04-16 Creatinine, Urine 73.4 Not Estab. Microalbumin, Urine 229.0 Not Estab. Microalb/Creat Ratio 312.0 0.0-30.0 CULTURE, URINE 2016-04-16 Urine Culture, Routine Final report Result 1 Antimicrobial Susceptibility PROCEDURES Procedure Date Ordered Related Diagnosis Body Site MEASURE BLOOD OXYGEN LEVEL Apr 16, 2016 GLYCATED HEMOGLOBIN TEST Apr 16, 2016 URINE TEST Apr 16, 2016 URINALYSIS, AUTO, W/O SCOPE Apr 16, 2016 Office Visit, Est Pt., Level 3 Apr 16, 2016 THER/PROPH/DIAG INJ, SC/IM Apr 16, 2016 DEPO PROVERA (150 MG/ML) Apr 16, 2016 MICROALBUMIN, SEMIQUANT Apr 16, 2016 LAB NOT BILLED BY [facility] Apr 16, 2016 IMMUNIZATIONS Vaccine Route Administration Date Status DEPO PROVERA (150 MG/ML) IM Intramuscular Apr 16, 2016 Administered
--- OUTSIDE RECORDS SUMMARY | 2016-12-27 13:27 | XMS REPORT ---
Author Author JIMENA ZAINAB [facility] Address [address] [place] [address] Care Team Providers Care Wire Winder Name Role Phone KELSEY HESSY Unavailable PROBLEMS Type Condition ICD9-CM Code [id number] Code Onset Dates Condition Status SNOMED Code Problem Primary insomnia F51.01 Active 368580406 Problem Type 2 diabetes mellitus with hyperglycemia E11.65 Active 27575344 Problem Major depressive disorder, recurrent, unspecified F33.9 Active 660625153 Problem Acute and chronic respiratory failure with hypoxia J96.21 Active 22132370183327766 Problem Microalbuminuria R80.9 Active 619077278 Problem Dysphagia, unspecified type R13.10 Active 05887329 Problem 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 Active 674402595040 Problem Morbid obesity with alveolar hypoventilation E66.2 Active 851087007 Problem Chronic tension-type headache, intractable G44.221 Active 990393900 Problem Type 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 Active 23714176 Problem MRSA (methicillin resistant Staphylococcus aureus) A49.02 Active 126350415 Problem Recurrent cellulitis L03.90 Active 047468069 Problem Chronic diarrhea K52.9 Active 897814207 Problem Chronic nausea R11.0 Active 882439527 Problem Gastroesophageal reflux disease, esophagitis presence not specified K21.9 Active 786558151 Problem Tinnitus of both ears H93.13 Active 5492892242426 Problem Essential hypertension I10 Active 50720049 Problem Anxiety F41.9 Active 98157644 Problem Lymphedema I89.0 Active 461350293 Problem Hypertriglyceridemia E78.1 Active 123684740 Problem Meralgia paresthetica, unspecified laterality G57.10 Active 60030236 Problem Obstructive sleep apnea G47.33 Active 46420894 Problem Low back pain M54.5 Active 928681726 ALLERGIES Substance Reaction Event Type Date Status Amitriptyline HCl Unknown Drug Allergy Apr, Active Hydrocodone-acetaminophen 7.5-500 Mg Tablet Violated narcotics contract Non Drug Allergy Apr, Active SOCIAL HISTORY No smoking Hx information available PLAN OF CARE Activity Details Follow Up 3 Months Reason:DMII VITAL SIGNS Height 63 in 2016-04-25 Weight 473.5 lbs 2016-04-25 Temperature 98.6 degrees Fahrenheit 2016-04-25 Heart Rate 112 bpm 2016-04-25 Respiratory Rate 24 2016-04-25 Oximetry w/ oxygen:96 % 2016-04-25 BMI 83.87 kg/m2 2016-04-25 Blood pressure systolic 124 mmHg 2016-04-25 Blood pressure diastolic 88 mmHg 2016-04-25 MEDICATIONS Medication Instructions Dosage Frequency Start Date End Date Duration Status Loperamide HCl 2 MG TAKE 2 CAPSULES BY MOUTH AFTER FIRST LOOSE STOOL THEN TAKE 1 CAPSULE AFTER EACH LOOSE STOOL - MAX 8 PER DAY 5 Active Symbicort 160-4.5 MCG/ACT Inhalation Twice a day 2 puffs 12h Active Ranitidine HCl 150 MG TAKE 2 TABLETS BY MOUTH DAILY AT BEDTIME 30 Active Ipratropium [place] 0.02 % Inhalation every 8 hours, PRN 2.5 ml Jul 30 days Active Metformin HCl 1000 MG Orally 2 times a day 1 tablet with meals 12h 90 days Active Lisinopril 20 MG Orally Once a day 1 tablet 24h 90 days Active Omeprazole 40 MG TAKE 1 CAPSULE BY MOUTH EVERY DAY 30 Active ProAir HFA 108 (90 Base) MCG/ACT Inhalation every 4 hrs 2 puffs as needed 4h 30 days Active Bactroban 2 % Externally to infected skin areas Three times a day 1 application to affected area 8h Jun, Apr, 14 days Active NovoLog 100 UNIT/ML Subcutaneous 3 times a day 30 units 8h Jun, 30 days Active Gemfibrozil 600 MG Orally Twice a day 1 tablet 12h 90 days Active Ondansetron 8 MG Orally every 8 hours, PRN 1 tablet on the tongue and allow to dissolve 90 days Active Montelukast Sodium 10 mg Orally Once a day 1 tablet in the evening 24h 90 days Active Pravastatin Sodium 40 mg Orally Once a day 1 tablet 24h 90 days Active Lyrica 150 MG Orally 2 times a day 2 capsules 12h 90 days Active Cyclobenzaprine HCl 10 MG Orally Three times a day 1 tablet 8h Oct, 90 days Active Ibuprofen 600 MG TAKE 1 TABLET BY MOUTH FOUR TIMES A DAY Active Test strips Test Strips test blood sugar 6h Oct, Active Macrobid 100 MG Orally 2 times a day 1 capsule with food 12h 10 Apr, 2016 Apr, 7 day(s) Active Insulin Syringe 31G X 5/16 as directed 6h Jun, Active UltiCare Mini Pen [place] 31G X 6 MM USE DIRECTED 12 Active Lantus 100 UNIT/ML Subcutaneous Twice a day 55 units 12h 10 Jun, 2015 30 days Active Cetirizine HCl 10 mg Orally Once a day 1 tablet 24h 12 Apr, 2016 Oct, 90 days Active RESULTS Name Result Date Reference Range STREP A (IN HOUSE) 2016-04-25 STREP A Negative Control + Lot # [id number] Exp date 12/12/2016 Gastric Emptying Study 2016-05-14 Ultrasound : Liver 2016-05-14 PROCEDURES Procedure Date Ordered Related Diagnosis Body Site MEASURE BLOOD OXYGEN LEVEL Apr 25, 2016 Office Visit, Est Pt., Level 4 Apr 25, 2016 FOOT EXAM PERFORMED Apr 25, 2016 STREP A ASSAY W/OPTIC Apr 25, 2016 IMMUNIZATIONS No Known Immunizations
--- NOTE | 2016-12-27 14:08 | Diagnostic Imaging Report ---
INDICATION: Hypoxia, swelling. COMPARISON: 11/02/2016. FINDINGS: There is cardiomegaly. There is pulmonary venous congestion with bilateral interstitial and alveolar infiltrates. IMPRESSION: Findings are consistent with congestive failure with similar overall appearance to previous exam. Dictated by: Dictated on workstation # [id number]
[2016-12-27 14:52] LABS: BASOPHILS % (AUTO) 0 % (0-10); EOSINOPHILS # (AUTO) 0.1 10^3/uL (0.0-0.3); EOSINOPHILS % (AUTO) 2 % (0-10); LYMPHOCYTES # (AUTO) 1.8 X 10^3 (1.0-4.0); LYMPHOCYTES % (AUTO) 22 % (12-44); MEAN CORPUSCULAR HEMOGLOBIN 30 PG (25-34); MEAN CORPUSCULAR HGB CONC 30 G/DL (32-36); MEAN CORPUSCULAR VOLUME 98 FL (80-99); MEAN PLATELET VOLUME 10.2 FL (7.4-10.4); MONOCYTES # (AUTO) 0.6 X 10^3 (0.0-1.0); MONOCYTES % (AUTO) 7 % (0-12); NEUTROPHILS # (AUTO) 5.9 X 10^3 (1.8-7.8); NEUTROPHILS % (AUTO) 70 % (42-75); PLATELET COUNT 277 10^3/uL (130-400); RED BLOOD COUNT 3.32 10^6/uL (4.35-5.85); RED CELL DISTRIBUTION WIDTH 17.8 % (10.0-14.5); WHITE BLOOD COUNT 8.4 10^3/uL (4.3-11.0)
[2016-12-27 15:11] LABS: ALANINE AMINOTRANSFERASE 19 U/L (0-55); ALBUMIN 3.6 GM/DL (3.2-4.5); ANION GAP 10 MMOL/L (5-14); ASPARTATE AMINO TRANSFERASE 41 U/L (5-34); BILIRUBIN,TOTAL 0.3 MG/DL (0.1-1.0); BLOOD UREA NITROGEN 12 MG/DL (7-18); BUN/CREATININE RATIO 19; CALCIUM 9.2 MG/DL (8.5-10.1); CARBON DIOXIDE 31 MMOL/L (21-32); CHLORIDE 100 MMOL/L (98-107); CREATININE SERUM 0.62 MG/DL (0.60-1.30); GFR ESTIMATED > 60; GLUCOSE 99 MG/DL (70-105); POTASSIUM 4.1 MMOL/L (3.6-5.0); SODIUM 141 MMOL/L (135-145); TOTAL PROTEIN 6.9 GM/DL (6.4-8.2)
[2016-12-27] MEDS ORDERED: RT-ALBUTEROL/IPRATROPIUM 3 ML (DUONEB) VIAL INH PRN (15:15)
[2016-12-27] MEDS ORDERED: PREG150C PO (15:38)
[2016-12-27] MEDS ORDERED: ASPI-992 PO (15:38)
[2016-12-27] MEDS ORDERED: FURO40TA4 PO (15:38)
[2016-12-27] MEDS: ENOXAPARIN 40 MG/0.4 ML (LOVENOX) SYR SC SCH (15:41)
[2016-12-27] MEDS: inSUlin ASPART (NovoLOG) 1 UNIT/0.01 ML (CHARGE PER UNIT) SC SCH ×2 (17:19→22:56)
[2016-12-27] MEDS: RT-ALBUTEROL/IPRATROPIUM 3 ML (DUONEB) VIAL INH SCH (19:38)
[2016-12-27 20:12] VITALS: BP 160/71
[2016-12-27] MEDS ORDERED: PREGABALIN 100 MG (LYRICA) CAPSULE PO ONE (21:00)
[2016-12-27] MEDS: ACETAMINOPHEN 500 MG TAB (TYLENOL) PO PRN (21:26)
[2016-12-27 23:45] VITALS: BP 131/60
[2016-12-28 01:11] VITALS: BP 131/60
[2016-12-28 03:30] VITALS: BP 145/64
[2016-12-28] MEDS: ACETAMINOPHEN 500 MG TAB (TYLENOL) PO PRN ×3 (03:41→21:41)
[2016-12-28] MEDS: inSUlin ASPART (NovoLOG) 1 UNIT/0.01 ML (CHARGE PER UNIT) SC SCH ×4 (07:15→21:40)
[2016-12-28 07:46] LABS: MEAN PLATELET VOLUME 10.5 FL (7.4-10.4); RED BLOOD COUNT 3.09 10^6/uL (4.35-5.85); RED CELL DISTRIBUTION WIDTH 17.9 % (10.0-14.5); WHITE BLOOD COUNT 7.6 10^3/uL (4.3-11.0)
[2016-12-28 08:00] VITALS: BP 114/83
[2016-12-28 08:06] LABS: ANION GAP 11 MMOL/L (5-14); BLOOD UREA NITROGEN 13 MG/DL (7-18); BUN/CREATININE RATIO 18; CALCIUM 8.7 MG/DL (8.5-10.1); CARBON DIOXIDE 33 MMOL/L (21-32); CHLORIDE 96 MMOL/L (98-107); CREATININE SERUM 0.72 MG/DL (0.60-1.30); GFR ESTIMATED > 60; GLUCOSE 195 MG/DL (70-105); MAGNESIUM 1.4 MG/DL (1.8-2.4); POTASSIUM 3.9 MMOL/L (3.6-5.0); SODIUM 140 MMOL/L (135-145)
[2016-12-28] MEDS: RT-ALBUTEROL/IPRATROPIUM 3 ML (DUONEB) VIAL INH SCH ×3 (08:26→20:04)
--- NOTE | 2016-12-28 08:38 | Progress Note (SOAP) ---
Subjective Subjective/Events-last exam patient reports her breathing was, rough over the night. She attributes this to not having her CPAP machine. She had nasal cannula overnight. She did have diuresis. Review of Systems Date Seen by Provider: Dec 28, 2016 Time Seen by Provider: 07:00 Objective Exam Last Set of Vital Signs Vital Signs Date Time Temp Pulse Resp B/P (MAP) Pulse Ox O2 Delivery O2 Flow Rate FiO2 12/28/16 03:30 98.0 106 22 145/64 93 Nasal Cannula 3.00 Capillary Refill : I&O Intake and Output 12/29/16 00:00 Intake Total 600 ml Balance 600 ml Intake Oral 600 ml # Voids 3 General: Mild Distress (due to shortness of breath) Lungs: Other (due to body habitus her lung sounds are distant) Heart: Regular Rate Skin: No Rashes Results/Procedures Lab Laboratory Tests 12/27/16 14:41: White Blood Count 8.4, Red Blood Count 3.32L, Hemoglobin 9.9L, Hematocrit 33L, Mean Corpuscular Volume 98, Mean Corpuscular Hemoglobin 30, Mean Corpuscular Hemoglobin Concent 30L, Red Cell Distribution Width 17.8H, Platelet Count 277, Mean Platelet Volume 10.2, Neutrophils (%) (Auto) 70, Lymphocytes (%) (Auto) 22 , Monocytes (%) (Auto) 7, Eosinophils (%) (Auto) 2, Basophils (%) (Auto) 0, Neutrophils # (Auto) 5.9, Lymphocytes # (Auto) 1.8, Monocytes # (Auto) 0.6, Eosinophils # (Auto) 0.1, Basophils # (Auto) 0.0, Sodium Level 141, Potassium Level 4.1, Chloride Level 100, Carbon Dioxide Level 31, Anion Gap 10, Blood Urea Nitrogen 12, Creatinine 0.62, Estimat Glomerular Filtration Rate > 60, BUN/ Creatinine Ratio 19, Glucose Level 99, Calcium Level 9.2, Total Bilirubin 0.3, Aspartate Amino Transf (AST/SGOT) 41H, Alanine Aminotransferase (ALT/SGPT) 19, Alkaline Phosphatase 124, B-Type Natriuretic Peptide 21.7, Total Protein 6.9, Albumin 3.6, Smear Scan 12/27/16 17:11: Glucometer 170H 12/27/16 22:02: Glucometer 180H 12/28/16 06:06: Glucometer 203H 12/28/16 07:10: White Blood Count 7.6, Red Blood Count 3.09L, Hemoglobin 9.2L, Hematocrit 31L, Mean Corpuscular Volume 99, Mean Corpuscular Hemoglobin 30, Mean Corpuscular Hemoglobin Concent 30L, Red Cell Distribution Width 17.9H, Platelet Count 249, Mean Platelet Volume 10.5H, Sodium Level 140, Potassium Level 3.9, Chloride Level 96L, Carbon Dioxide Level 33H, Anion Gap 11, Blood Urea Nitrogen 13, Creatinine 0.72, Estimat Glomerular Filtration Rate > 60, BUN/Creatinine Ratio 18, Glucose Level 195H, Calcium Level 8.7, Magnesium Level 1.4L Assessment/Plan Assessment/Plan Admission Dx Hypoxia, suspect pulmonary edema Suspect acute congestive heart failure Morbid obesity Diabetes mellitus type II, insulin dependent Plan Hypoxia, suspect pulmonary edema- increasing weight gain in spite of home furosemide and worsening hypoxia, will start IV furosemide and RT protocol, increase her supplemental oxygen as needed -CXR on admit, check BNP, CBC, CMP -12/28 she continues to be on 3 L nasal cannula oxygen. Hopefully family member will be able to bring up her CPAP unit. -we'll continue with diuresis and hopefully her hypoxemia will improve. She did drop to 88 percent after getting up yesterday evening. Suspect acute congestive heart failure- check BNP, difficult to determine given inability to obtain adequate echocardiogram due to body habitus, unable historically to obtain stress testing due to body habitus. Consider Cardiology consult. Morbid obesity- BMI over 90 Diabetes mellitus type II, insulin dependent- resume home insulin, diabetic diet , sliding scale insulin DVT ppx- enoxaparin Diagnosis/Problems: Clinical Quality Measures DVT/VTE Risk/Contraindication: Risk Factor Score Per Nursin RFS Level Per Nursing on Admit: 3=High PITER ESPINOZA MD Dec 28, 2016 08:38
[2016-12-28] MEDS ORDERED: FUROSEMIDE 40 MG/4 ML INJ (LASIX) IVP SCH ×2 (09:00→14:00)
[2016-12-28] MEDS: METOLAZONE 2.5 MG (ZAROXOLYN) TAB PO SCH (10:45)
[2016-12-28] MEDS: FUROSEMIDE 40 MG (LASIX) TAB PO SCH ×2 (10:45→21:41)
[2016-12-28 12:00] VITALS: BP 152/85
[2016-12-28] MEDS: ENOXAPARIN 40 MG/0.4 ML (LOVENOX) SYR SC SCH (14:30)
[2016-12-28] MEDS: metFORMIN 500 MG (GLUCOPHAGE) TAB PO SCH (16:33)
[2016-12-28 16:50] VITALS: BP 146/65
[2016-12-28] MEDS: PREGABALIN 75 MG (LYRICA) CAP PO SCH (17:37)
[2016-12-28 20:59] VITALS: BP 132/60
[2016-12-28] MEDS ORDERED: FAMOTIDINE 20 MG (PEPCID) TABLET PO SCH (21:00)
[2016-12-28] MEDS ORDERED: RT-ADVAIR HFA 115/21 MCG PER PUFF IH SCH (21:00)
[2016-12-28] MEDS ORDERED: inSUlin DETERMIR 1 UNIT/0.01 ML (LEVEMIR) CHARGE PER UNIT SQ SCH (21:00)
[2016-12-28] MEDS ORDERED: PREGABALIN 100 MG (LYRICA) CAPSULE PO SCH (21:00)
[2016-12-28] MEDS ORDERED: SIMvastatin 20 MG (ZOCOR) TAB PO SCH (21:00)
[2016-12-28] MEDS: SUCRALFATE 1 GM (CARAFATE) TAB PO SCH (21:40)
[2016-12-29] VITALS: BP 125/60
[2016-12-29 04:00] VITALS: BP 125/56
[2016-12-29 05:56] LABS: BASOPHILS % (AUTO) 0 % (0-10); EOSINOPHILS # (AUTO) 0.2 10^3/uL (0.0-0.3); EOSINOPHILS % (AUTO) 2 % (0-10); LYMPHOCYTES # (AUTO) 1.5 X 10^3 (1.0-4.0); LYMPHOCYTES % (AUTO) 19 % (12-44); MEAN CORPUSCULAR HEMOGLOBIN 30 PG (25-34); MEAN CORPUSCULAR HGB CONC 31 G/DL (32-36); MEAN CORPUSCULAR VOLUME 97 FL (80-99); MEAN PLATELET VOLUME 10.5 FL (7.4-10.4); MONOCYTES # (AUTO) 0.5 X 10^3 (0.0-1.0); MONOCYTES % (AUTO) 6 % (0-12); NEUTROPHILS # (AUTO) 5.7 X 10^3 (1.8-7.8); NEUTROPHILS % (AUTO) 72 % (42-75); PLATELET COUNT 240 10^3/uL (130-400); RED BLOOD COUNT 3.07 10^6/uL (4.35-5.85); RED CELL DISTRIBUTION WIDTH 17.8 % (10.0-14.5); WHITE BLOOD COUNT 7.9 10^3/uL (4.3-11.0)
[2016-12-29] MEDS ORDERED: inSUlin ASPART (NovoLOG) 1 UNIT/0.01 ML (CHARGE PER UNIT) SQ SCH (06:00)
[2016-12-29 06:21] LABS: ANION GAP 13 MMOL/L (5-14); BLOOD UREA NITROGEN 18 MG/DL (7-18); BUN/CREATININE RATIO 27; CALCIUM 9.1 MG/DL (8.5-10.1); CARBON DIOXIDE 33 MMOL/L (21-32); CHLORIDE 92 MMOL/L (98-107); CREATININE SERUM 0.67 MG/DL (0.60-1.30); GFR ESTIMATED > 60; GLUCOSE 219 MG/DL (70-105); MAGNESIUM 1.4 MG/DL (1.8-2.4); POTASSIUM 3.4 MMOL/L (3.6-5.0); SODIUM 138 MMOL/L (135-145)
[2016-12-29] MEDS: FUROSEMIDE 40 MG (LASIX) TAB PO SCH (06:57)
[2016-12-29] MEDS: METOLAZONE 2.5 MG (ZAROXOLYN) TAB PO SCH (06:57)
[2016-12-29] MEDS: metFORMIN 500 MG (GLUCOPHAGE) TAB PO SCH (06:57)
[2016-12-29] MEDS: inSUlin ASPART (NovoLOG) 1 UNIT/0.01 ML (CHARGE PER UNIT) SC SCH ×2 (06:58→10:41)
[2016-12-29] MEDS ORDERED: PANTOPRAZOLE 40 MG (PROTONIX) TAB PO SCH (07:00)
[2016-12-29] MEDS: RT-ALBUTEROL/IPRATROPIUM 3 ML (DUONEB) VIAL INH SCH (07:54)
[2016-12-29 08:00] VITALS: BP 125/56
--- NOTE | 2016-12-29 08:51 | Discharge Inst-Simple/Standard ---
Discharge Inst-Standard Discharge Medications New, Converted or Re-Newed RX: Transmitted to Pharmacy Patient Instructions/Follow Up Plan of Care/Instructions/FU: Continue to take furosemide 40 mg but take 2 tablets in the morning and 1 tablet in the evening did take metolazone 2.5 mg 1 in the morning. Follow-up with Dr. Cano within the week. Activity as Tolerated: Yes Discharge Diet: ADA Diet Return to The Hospital For: Worsening shortness of breath or fever Other Inst to Patient Continue to utilize home CPAP. Limit the amount of oral intake and drink only when thirsty Planned Outpatient Orders/Ref. Pneu Vac Indicated: Yes PITER ESPINOZA MD Dec 29, 2016 08:51
[2016-12-29] MEDS ORDERED: METO2.5T PO (08:53)
[2016-12-29] MEDS: SUCRALFATE 1 GM (CARAFATE) TAB PO SCH (08:54)
[2016-12-29] MEDS: PREGABALIN 75 MG (LYRICA) CAP PO SCH (08:54)
--- NOTE | 2016-12-29 08:58 | Discharge Summary ---
Diagnosis/Chief Complaint Date of Admission Dec 27, 2016 at 13:06 Date of Discharge December 29, 2016 Admission Diagnosis Admission Diagnosis Hypoxia, suspect pulmonary edema Suspect acute congestive heart failure Morbid obesity Diabetes mellitus type II, insulin dependent Discharge Diagnosis 1. Suspect acute congestive heart failure 2. Hypoxia, suspect pulmonary edema 3. Morbid obesity 4. Diabetes mellitus type II, insulin dependent Chief Complaint/HPI Chief Complaint/HPI 41 yo female who is dependent on supplemental oxygen at baseline with morbid obesity presented to clinic with increasing shortness of breath and weight gain in spite of taking home lasix and increasing home dose to 80 mg daily for a few days. She reports over the last 2 weeks progressive cough, oxygen levels decreasing into the 70s with home monitor with going from her room to the bathroom and marked swelling from feet through perineum and up to level of umbilicus today. In clinic she was noted to have 32 lb weight gain in 2 week period and oxygen level of 85-87 with any movement on her baseline supplemental oxygen. She also complains of runny nose and intermittent low blood sugars for which she eats half a candy bar. Discharge Summary-Simple/Stand Consultations Discharge Physical Examination Allergies: Coded Allergies: No Known Drug Allergies (Unverified , 08/08/16) Vitals & I&Os Vital Sign - Last 12Hours Date Time Temp Pulse Resp B/P (MAP) Pulse Ox O2 Delivery O2 Flow Rate FiO2 12/29/16 07:54 92 Nasal Cannula 4.00 12/29/16 04:00 97.8 91 20 125/56 General Appearance: No Acute Distress Respiratory: Clear to Auscultation (Overall) Cardiovascular: Regular Rate Abdominal: Soft Skin: No Rashes Hospital Course Patient admitted on December 27, 2016 with suspected congestive heart failure with pulmonary edema. She underwent diuresis with Lasix initially 80 mg IV twice daily. Patient tolerated and did have diuretic effect. Already on December 28, 2016 her breathing had improved. Her white blood cell count and hemoglobin were both stable at 7.9 and 9.3 respectively. She remained afebrile with stable vital signs with blood pressure 125/56 in the morning of December 29, 2016. Patient was maintained on CPAP during her resting at night. She does run in the low 90s on her oxygen sats but she is comfortable with this. She will be discharged to home in the morning of December 29 with follow-up Dr. Cano within the week. Her medications were sent to her local pharmacy. Discharge Instructions to patient/family Please see electronic discharge instructions given to patient. Discharge Medications Reviewed and agree with Discharge Medication list on patient's Discharge Instruction sheet Clinical Quality Measures DVT/VTE Risk/Contraindication: Risk Factor Score Per Nursin RFS Level Per Nursing on Admit: 3=High PITER ESPINOZA MD Dec 29, 2016 08:58
[2016-12-29] MEDS ORDERED: MONTELUKAST 10 MG (SINGULAIR) TAB PO SCH (09:00)
[2016-12-29] MEDS ORDERED: LORATADINE (CLARITIN) 10 MG TAB PO SCH (09:00)
--- NOTE | 2016-12-29 10:52 | Diagnostic Imaging Report ---
INDICATION: Followup of congestive heart failure. COMPARISON: Comparison made to the prior study from 12/27/2016. FINDINGS: Mild enlargement of the cardiac silhouette is unchanged. The overall pulmonary vascularity is diminished in prominence when compared to the prior examination. No effusion is evident. There is no pneumothorax. No acute osseous abnormality is demonstrated. IMPRESSION: 1. Enlarged cardiac silhouette with significant interval improvement in the overall pulmonary vascular status. There is mild residual interstitial edema remaining. There is no significant pleural effusion demonstrated. Dictated by: Dictated on workstation # [id number]
== END 2016-12-29 11:50 | disposition home or self-care (01) | DRG 292 ==
LOC: 4TH 13:06
PROVIDERS: ADMIT Family Medicine; ATTEND Family Medicine
DX: I50.9 Heart failure, unspecified (principal); J81.1 Chronic pulmonary edema; E66.01 Morbid (severe) obesity due to excess calories; Z68.38 Body mass index [BMI] 38.0-38.9, adult; E11.9 Type 2 diabetes mellitus without complications; E78.5 Hyperlipidemia, unspecified; I89.0 Lymphedema, not elsewhere classified; G47.33 Obstructive sleep apnea (adult) (pediatric); Z79.4 Long term (current) use of insulin
CPT/HCPCS: 36415; 71010; 71020; 80048; 80053; 82962; 83735; 83880; 85025; 85027; 94640; 94660; 94760

== ENCOUNTER 2017-08-25 13:44 | Outpatient (RCR) | payer MEDICAID ==
[~2017-08-25 13:44] MED LIST changes: +ASPI-992 PO; -GEMF600T3 PO; +GEMF600T4 PO; -HYDR-3812 PO; -METF1000 PO; +METF10002 PO; +METO2.5T PO
[2017-08-25 14:31] LABS: BASOPHILS % (AUTO) 0 % (0-10); EOSINOPHILS # (AUTO) 0.2 10^3/uL (0.0-0.3); EOSINOPHILS % (AUTO) 2 % (0-10); HEMATOCRIT 30 % (35-52); HEMOGLOBIN 9.7 G/DL (11.5-16.0); LYMPHOCYTES # (AUTO) 2.5 X 10^3 (1.0-4.0); LYMPHOCYTES % (AUTO) 29 % (12-44); MEAN CORPUSCULAR HEMOGLOBIN 32 PG (25-34); MEAN CORPUSCULAR HGB CONC 33 G/DL (32-36); MEAN CORPUSCULAR VOLUME 97 FL (80-99); MEAN PLATELET VOLUME 10.4 FL (7.4-10.4); MONOCYTES # (AUTO) 0.5 X 10^3 (0.0-1.0); MONOCYTES % (AUTO) 6 % (0-12); NEUTROPHILS # (AUTO) 5.3 X 10^3 (1.8-7.8); NEUTROPHILS % (AUTO) 62 % (42-75); PLATELET COUNT 313 10^3/uL (130-400); RED BLOOD COUNT 3.06 10^6/uL (4.35-5.85); RED CELL DISTRIBUTION WIDTH 17.7 % (10.0-14.5); WHITE BLOOD COUNT 8.5 10^3/uL (4.3-11.0)
[2017-08-25 14:48] LABS: ALANINE AMINOTRANSFERASE < 6 U/L (0-55); ALBUMIN 3.5 GM/DL (3.2-4.5); ALKALINE PHOSPHATASE 86 U/L (40-136); BILIRUBIN,TOTAL 0.3 MG/DL (0.1-1.0); BUN/CREATININE RATIO 21; CALCIUM 9.4 MG/DL (8.5-10.1); CARBON DIOXIDE 26 MMOL/L (21-32); CHLORIDE 103 MMOL/L (98-107); GFR ESTIMATED > 60; GLUCOSE 213 MG/DL (70-105); POTASSIUM 4.3 MMOL/L (3.6-5.0); SODIUM 138 MMOL/L (135-145); TOTAL PROTEIN 7.4 GM/DL (6.4-8.2)
== END 2017-11-23 | disposition home or self-care (01) ==
LOC: ONC 13:44
PROVIDERS: ATTEND Internal Medicine Hematology & Oncology
DX: D72.820 Lymphocytosis (symptomatic) (principal)
CPT/HCPCS: 36415; 80053; 82728; 82784; 83540; 83615; 83883; 84155; 84165; 85025; 88185; 99214

== ENCOUNTER → 2017-10-21 | Outpatient (CLI) | payer MEDICAID ==
[2017-10-21 13:10] LABS: BUN/CREATININE RATIO 23; CALCIUM 9.2 MG/DL (8.5-10.1); CARBON DIOXIDE 24 MMOL/L (21-32); CHLORIDE 104 MMOL/L (98-107); CREATININE SERUM 0.83 MG/DL (0.60-1.30); GFR ESTIMATED > 60; GLUCOSE 210 MG/DL (70-105); POTASSIUM 4.1 MMOL/L (3.6-5.0); SODIUM 138 MMOL/L (135-145)
--- NOTE | 2017-10-22 15:38 | Physician Query-Final Dx ---
ELISE HYDE 10/22/17 1538: Clinic Account Progress/Dx Physician Query: dx is suspected chf - per op coding guidelines - suspected cannot be coded - please give a more specific dx or sign/symptom thank you Date of Service Oct 21, 2017 at 12:26 INDU VELÁSQUEZ 11/25/17 1212: ELISE HYDE Oct 22, 2017 15:38 INDU VELÁSQUEZ Nov 25, 2017 12:12
== END ==
LOC: LAB 12:26
PROVIDERS: ATTEND Family Medicine
DX: R20.0 Anesthesia of skin (principal); R60.1 Generalized edema
CPT/HCPCS: 36415; 80048

== ENCOUNTER 2017-11-24 17:13 | Emergency (ER) | payer MEDICAID ==
[~2017-11-24] VITALS: Ht 162.6 cm; Wt 181.4 kg
--- OUTSIDE RECORDS SUMMARY | 2017-11-24 17:19 | XMS REPORT | Clinical Summary ---
Author Author [facility] Organization [facility] Address Unknown Phone Unavailable Care Team Providers Care Curator Of Collections Name Role Phone Vijay Knowles MD Unavailable Bettye Fang MD Unavailable Source Comments Some departments are not documenting in the electronic medical record. If you do not see the information that you expected, contact Release of Information in the Health Information Management department at [phone] for further assistance in locating additional records.[facility] Allergies Not on File Current Medications Prescription [...] PHYSICAL (COMPREHENSIVE) 1980 EXAM PERTUSSIS VACCINE 1984 HIV SCREENING 1988 TETANUS VACCINE 1990 CERVICAL CANCER SCREENING 10/12/2003 BREAST CANCER SCREENING 2013 INFLUENZA VACCINE 01/12/2018 Results Not on filefrom Last 3 Months
--- OUTSIDE RECORDS SUMMARY | 2017-11-24 17:22 | XMS REPORT ---
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 0466 May, Unspecified mood [affective] disorder F39 [facility] [place] [address] [address]- 4685 May, [facility] [place] [id number] [place] [address] 44510- 8394 May, [facility] [place] [id number] [place] [address] 14423- 8183 May, [facility] [place] [id number] [place] [address] 40359- 8053 Apr, [facility] [place] [id number] [place] [address] 86369- 9039 Apr, Unspecified mood [affective] disorder F39 [facility] [place] [id number] [place] [address] 25202- 3708 Apr, [facility] [place] [id number] [place] [address] 25817- 4026 Apr, [facility] [place] [id number] [place] [address] 18659- 4318 Apr, [place] [id number] [place] [address] 74542- 6728 Apr, Dysuria R30.0 and Well woman exam (no gynecological exam) Z00.00 [place] [id number] [place] [address] 57813- 9027 Mar, [place] [id number] [place] [address] 53143- 5934 Mar, [facility] [id number] [place] [address] [id number] Mar, Dental examination Z01.20 [place] [id number] [place] [address] 65876- 1681 Mar, Chronic diarrhea K52.9 ; Intractable vomiting with nausea, vomiting of unspecified type R11.2 ; Cellulitis, unspecified cellulitis site L03.90 ; Type 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 and Postinflammatory hyperpigmentation L81.0 [place] [id number] [place] [address] 35832- 6246 Mar, Unspecified mood [affective] disorder F39 [facility] [place] [id number] [place] [address] 87008- 0763 Mar, Unspecified mood [affective] disorder F39 [place] [id number] [place] [address] 61238- 1117 Mar, [facility] [address] [facility] [place] [id number] [address]- 9089 Mar, [facility] [address] [facility] [place] [id number], [place] [address]- 0417 Mar, [facility] [address] [facility] [place] [id number], [place] [address]- 6017 Mar, [facility] [address] [facility] [place] [id number] [place] [address] 04487- 8685 Mar, [facility] [address] [facility] [place] [id number] [address]- 3509 Mar, [facility] [id number] [place] [address] 52206- 7631 Feb, Unspecified mood [affective] disorder F39 [facility] [place] [id number] [place] [address] 08894- 5298 Feb, [facility] [place] [id number], [place] [address]- 4068 Feb, [facility] [place] [id number] [address]- 4215 Jan, Unspecified mood [affective] disorder F[address] [id number] [id number] Jan, Encounter for dental examination Z01.20 [facility] [place] [id number] [address]- 1483 Jan, [facility] [place] [address] [facility] [place] [id number], [place] [address]- 5027 Jan, [facility] [place] [address] [address]- 6506 Jan, [facility] [place] [id number] [address]- 4857 Jan, [facility] [place] [id number] [place] [address] 46008- 1818 Jan, [facility] [place] [id number] [place] [address] 98480- 7206 Jan, Abdominal abscess K65.1 and Dental caries K02.9 [facility] [place] [id number] [place] [address] 38274- 4605 Jan, [facility] [place] [address] 72352- 6116 30 Dec, 2014 Diabetes with neurological manifestations, type II or unspecified type, not stated as uncontrolled 250.60 ; Essential hypertension, benign 401.1 ; Concussion 850.9 and Skin texture changes 782.8 [facility] [place] [address] 02766- 1226 Dec, [facility] [place] [address] 47156- 3539 Dec, [facility] [place] [address] 93264- 4213 Dec, [facility] [place] [id number] [place] [address] 35914- 8699 Dec, [facility] [place] [id number] [place] [address] 26198- 4952 17 Dec, 2014 Affective disorder 296.90 [facility] [place] [id number] [place] [address] 94176- 2437 14 Dec, 2014 [facility] [place] [address] 41190- 8442 10 Dec, 2014 Affective disorder 296.90 [facility] [place] [id number] [place] [address] 96231- 8004 04 Dec, 2014 [facility] [place] [address] 36140- 9727 Dec, [facility] [place] [id number] [place] [address] 10968- 0332 Dec, 2014 [facility] [place] [address] [address]- 8102 Dec, [facility] [place] [id number] [place] [address] 33308- 4682 Nov, Affective disorder 296.90 [facility] [place] [id number] [address] 2546 Nov, [facility] [place] [id number] [place] [address] [id number] 2546 Nov, Affective disorder 296.90 [facility] [place] [id number] [place] [address] 54321 2546 Nov, Diarrhea 787.91 [facility] [place] [id number] [place] [address] 61603 2546 Nov, [facility] [place] [id number] [place] [address] 98558 2546 Nov, Diarrhea 787.91 [facility] [place] [id number] [place] [address] [id number] 2546 Nov, Diarrhea 787.91 and Hyperlipidemia 272.4 [facility] [place] [id number] [place] [address] [id number] 2546 Nov, Diarrhea 787.91 [facility] [place] [address], [place] [address] 2546 Nov, Affective disorder 296.90 [facility] [place] [address] [address] 2546 Nov, Affective disorder 296.90 [facility] [place] [address], [place] [address] 2546 Nov, Affective disorder 296.90 [facility] [place] [id number] [address] 2545 Nov, [facility] [place] [id number] [address] 2546 Nov, [facility] [place] [id number] [address] Nov, [facility] [place] [id number] [place] [address] [id number]- 0638 Nov, Episodic mood disorder 296.90 [facility] [place] [id number] [address] Nov, [facility] [place] [id number] [place] [address] 11171- 1270 Nov, [facility] [place] [id number] [place] [address] [id number]- [id number] Nov, [facility] [place] [id number] [place] [address] [id number]- 5010 Nov, [facility] [place] [id number] [place] [address] 98070- 7237 Nov, [facility] [place] [id number] [place] [address] [id number]- [id number] Nov, Lymphedema 457.1 ; Hyperlipidemia 272.4 ; Essential hypertension, benign 401.1 and Numbness of toes 782.0 [facility] [place] [address] [address] Nov, Episodic mood disorder 296.90 [facility] [place] [address], [place] [address] Oct, [facility] [place] [address], [place] [address] 3[address] Oct, [facility] [place] [address], [place] [address] Oct, [facility] [place] [address] [id number], [place] [address] Oct, [facility] [place] [address], [place] [address] Oct, [facility] [place] [address], [place] [address] 130[address] Oct, 2014 [facility] [address] [facility] [place] [id number] [place] [address] Oct, 2014 [facility] [address] [facility] [place] [id number] [address] Oct, 2014 [facility] [address] [facility] [place] [id number], [place] [address] 8661 Oct, Episodic mood disorder 296.90 [facility] [address] [facility] [place] [id number], [place] [address] 30 Sep, 2014 [facility] [address] [facility] [place] [id number] [address] 6[address] Sep, [facility] [address] [facility] [place] [id number], [place] [address] 0[address] Sep, [facility] [address] [id number], [place] [address] 4594 Sep, [facility] [address] [facility] [place] [id number] [address] 7[address] Sep, [facility] [address] [facility] [place] [id number], [place] [address] 1694 Sep, Episodic mood disorder 296.90 [facility] [place] [facility] [address] [facility] [place] [id number] [address] 7077 Sep, Unspecified episodic mood disorder 296.90 [facility] [address] [facility] [place] [id number] [address]- 9968 Sep, [facility] [address] [facility] [place] [id number] [address] 5740 Sep, [facility] [address] [facility] [place] [id number] [address]- 3094 16 Sep, 2014 Episodic mood disorder 296.90 [facility] [address] [facility] [place] [id number] [address] 15 Sep, 2014 [facility] [address], [place] [address] 7[address] Sep, [facility] [place] [address] [id number], [place] [address] 0357 Sep, [facility] [place] [id number] [place] [address]- 1551 Sep, Hematemesis 578.0 and Vomiting 787.03 [facility] [place] [id number] [place] [address]- 7966 Sep, Episodic mood disorder 296.90 [facility] [place] [id number] [place] [address] 95694- 7773 Sep, [facility] [place] [id number] [place] [address] 57[address]- 0624 Sep, [facility] [place] [id number] [place] [address] 76893- 7506 Sep, Diabetes mellitus without mention of complication, type II or unspecified type, not stated as uncontrolled 250.00 and Other chronic pain 338.29 [facility] [place] [address]005[address], [place] [address]- 0952 Sep, Episodic mood disorder 296.90 [facility] [place] [id number] [place] [address] 656[address]- 0757 Sep, [facility] [place] [address]005[address], [place] [address]- 4569 Sep, Episodic mood disorder 296.90 [facility] [place] [address]00565[address], [place] [address]- 5607 Sep, [facility] [place] [id number] [place] [address] 39427- 6132 August, [facility] [place] [id number] [place] [address] 14348- 3887 August, [facility] [place] [address]005[address], [place] [address]- 5641 August, Episodic mood disorder 296.90 [facility] [place] [address] [id number] [place] [address]- 6961 August, [facility] [place] [address] [place] [address] 4446 August, Unspecified episodic mood disorder 296.90 [facility] [place] [address] [address] 3493 August, Vomiting 787.03 [facility] [place] [address] [facility] [place] [id number] [address]- 6855 August, [facility] [place] [address] [id number] [address]- 2655 August, [facility] [place] [address] [id number] [address]- 9230 August, [facility] [place] [address], [place] [address]- 9932 August, [facility] [place] [address] [address]- 8727 August, [facility] [place] [address] [address]- 9298 Jul, [facility] [place] [address] [address]- 3485 Jul, [facility] [place] [address], [place] [address]- 7975 Jul, [facility] [place] [id number], [place] [address]- 3557 Jun, [facility] [id number] [address]- 2082 Jun, [facility] [id number] [address]- 7012 Jun, [facility] [place] [address] [id number] [address]- 0267 Jun, [facility] [place] [facility] [address] [facility] [place] [id number] [place] [address]- 7210 30 Jun, 2014 [facility] [place] [facility] [address] [id number] [place] [address]- 3196 30 Jun, 2014 [facility] [place] [facility] [address] [id number] [place] [address]- 7906 Jun, [facility] [place] [facility] [address] [id number] [place] [address]- 6271 Jun, [facility] [place] [facility] [address] [id number] [place] [address]- 0018 Jun, [facility] [place] [facility] [address] [id number] [place] [address]- 9082 Jun, [facility] [place] [facility] [address] [id number] [place] [address]- 8237 Jun, [facility] [place] [facility] [address] [id number] [place] [address]- 7445 Jun, [facility] [place] [facility] [address] [id number] [place] [address]- 3123 Jun, [facility] [place] [facility] [address] [id number] [place] [address]- 4285 Jun, [facility] [place] [facility] [address] [id number] [place] [address]- 7638 Jun, [facility] [place] [facility] [address] [id number] [place] [address]- 5109 Jun, [facility] [place] [facility] [address] [id number] [place] [address]- 5279 Jun, [facility] [place] [facility] [address] [id number] [place] [address]- 5244 Jun, [facility] [place] [facility] [address] [id number] [place] [address]- 4764 Jun, [facility] [place] [facility] [address] [id number] [place] [address]- 6801 Jun, [facility] [place] [facility] [address] [id number] [place] [address]- 1747 21 Jun, 2014 [facility] [place] [facility] [address] [id number] [place] [address]- 6502 20 Jun, 2014 [facility] [place] [facility] [address] [id number] [place] [address]- 8873 20 Jun, 2014 [facility] [place] [facility] [address] [id number] [place] [address]- 0120 20 Jun, 2014 [facility] [place] [facility] [address] [id number] [place] [address]- 7764 20 Jun, 2014 [facility] [place] [facility] [address] [id number] [place] [address]- 0295 19 Jun, 2014 [facility] [place] [facility] [address] [id number] [place] [address]- 8352 19 Jun, 2014 [facility] [place] [facility] [address] [id number] [place] [address]- 3093 18 Jun, 2014 [facility] [place] [facility] [address] [id number] [place] [address]- 2324 18 Jun, 2014 [facility] [place] [facility] [address] [id number] [place] [address]- 5851 17 Jun, 2014 [facility] [place] [facility] [address] [id number] [place] [address]- 5886 17 Jun, 2014 [facility] [place] [facility] [address] [id number] [place] [address]- 5014 16 Jun, 2014 [facility] [place] [facility] [address] [id number] [place] [address]- 1905 16 Jun, 2014 [facility] [place] [facility] [address] [id number] [place] [address]- 6086 16 Jun, 2014 [facility] [place] [facility] [address] [id number] [place] [address]- 5160 16 Jun, 2014 [facility] [place] [facility] [address] [id number] [place] [address]- 1480 16 Jun, 2014 [facility] [place] [facility] [address] [id number] [place] [address]- 1100 16 Jun, 2014 [facility] [place] [facility] [address] [id number] [place] [address]- 5382 Jun, 2014 [facility] [place] [facility] [address] [id number] [place] [address]- 7123 Jun, 2014 [facility] [place] [facility] [address] [id number] [place] [address]- 1722 Jun, 2014 [facility] [place] [facility] [address] [id number] [place] [address]- 6966 Jun, [facility] [place] [facility] [address] [id number] [place] [address]- 5700 Jun, 2014 [facility] [place] [facility] [address] [id number] [place] [address]- 9680 Jun, 2014 [facility] [place] [facility] [address] [id number] [place] [address]- 4578 Jun, 2014 [facility] [place] [facility] [address] [id number] [place] [address]- 0949 Jun, 2014 [facility] [place] [facility] [address] [id number] [place] [address]- 4173 Jun, 2014 [facility] [place] [facility] [address] [id number] [place] [address]- 2977 Jun, 2014 [facility] [place] [facility] [address] [id number] [place] [address]- 1049 Jun, 2014 [facility] [place] [facility] [address] [id number] [place] [address]- 7628 Jun, 2014 [facility] [place] [facility] [address] [id number] [place] [address]- 7444 Jun, 2014 [facility] [place] [facility] [address] [id number] [place] [address]- 9610 Jun, 2014 [facility] [place] [facility] [address] [id number] [place] [address]- 0879 Jun, [facility] [place] [facility] [address] [id number] [place] [address]- 5491 Jun, [facility] [place] [facility] [address] [id number] [place] [address]- 2893 Jun, [facility] [place] [facility] [address] [id number] [place] [address]- 1776 Jun, [facility] [place] [facility] [address] [id number] [place] [address]- 4717 Jun, [facility] [place] [facility] [address] [id number] [place] [address]- 0182 Jun, [facility] [place] [facility] [address] [facility] [place] [id number] [place] [address]- 7808 May, [facility] [place] [facility] [address] [id number] [place] [address]- 1868 May, [facility] [place] [facility] [address] [id number] [place] [address]- 5722 May, [facility] [place] [facility] [address] [facility] [place] [id number] [place] [address]- 6492 May, [facility] [place] [facility] [address] [facility] [place] [id number] [place] [address]- 2645 May, [facility] [place] [facility] [address] [id number] [place] [address]- 4658 May, 2014 [facility] [place] [facility] [address] [id number] [place] [address]- 3213 May, [facility] [place] [facility] [address] [id number] [place] [address]- 7717 May, 2014 [facility] [place] [facility] [address] [facility] [place] [id number] [place] [address]- 6259 May, 2014 [facility] [place] [facility] [address] [facility] [place] [id number] [place] [address]- 8699 20 May, 2014 [facility] [place] [facility] [address] [facility] [place] [id number] [place] [address]- 5578 18 May, 2014 [facility] [place] [facility] [address] [facility] [place] [id number] [place] [address]- 4766 18 May, 2014 [facility] [place] [facility] [address] [facility] [place] [id number] [place] [address]- 8389 13 May, 2014 [facility] [place] [facility] [address] [facility] [place] [id number] [place] [address]- 3245 13 May, 2014 [facility] [place] [facility] [address] [facility] [place] [id number] [place] [address]- 1161 11 May, 2014 [facility] [place] [facility] [id number] [place] [address]- 0298 May, 2014 [facility] [place] [facility] [address] [id number] [address]- 6941 May, 2014 [facility] [place] [facility] [address] [facility] [place] [id number] [place] [address]- 5689 May, 2014 [facility] [place] [facility] [address] [id number] [place] [address]- 2758 May, 2014 [facility] [place] [facility] [address] [id number] [address]- 4085 May, 2014 [facility] [place] [facility] [address] [facility] [place] [id number], [place] [address]- 5688 May, 2014 [facility] [place] [facility] [address] [facility] [place] [id number] [place] [address]- 2391 May, 2014 [facility] [place] [facility] [address] [facility] [place] [id number] [place] [address]- 5180 May, 2014 [facility] [place] [facility] [address] [facility] [place] [id number], [place] [address]- 4187 May, 2014 [facility] [place] [facility] [address] [address]- 7436 May, [facility] [place] [facility] [address] [id number] [place] [address]- 0162 May, [facility] [place] [facility] [address] [id number] [place] [address]- 8698 May, [facility] [place] [facility] [address] [id number] [place] [address]- 7200 Apr, [facility] [place] [facility] [address] [id number] [place] [address]- 2883 Apr, [facility] [place] [facility] [address] [id number] [place] [address]- 0738 Apr, [facility] [place] [facility] [address] [id number] [place] [address]- 2206 Apr, [facility] [place] [facility] [address] [id number], [place] [address]- 1260 Apr, [facility] [place] [facility] [address] [id number] [place] [address]- 7711 Apr, [facility] [place] [facility] [address] [id number] [place] [address]- 5966 Apr, [facility] [place] [facility] [address] [id number] [place] [address]- 4831 Apr, [facility] [place] [facility] [address] [id number], [place] [address]- 2974 Apr, [facility] [place] [facility] [address] [id number], [place] [address]- 5906 Apr, [facility] [place] [facility] [address] [id number], [place] [address]- 2111 Apr, [facility] [place] [facility] [address] [id number], [place] [address]- 9860 Apr, [facility] [place] [facility] [address] [id number], [place] [address]- 6496 Apr, [facility] [place] [facility] [address] [id number] [place] [address]- 4201 Apr, [facility] [place] [facility] [address] [id number] [place] [address]- 3616 Apr, [facility] [place] [facility] [address] [id number] [place] [address]- 1260 Apr, [facility] [place] [facility] [address] [id number] [place] [address]- 2899 Apr, [facility] [place] [facility] [address] [id number] [place] [address]- 8622 Apr, [facility] [place] [facility] [address] [id number] [place] [address]- 0220 Apr, [facility] [place] [facility] [address] [id number] [place] [address]- 5181 Apr, [facility] [place] [facility] [address] [id number] [place] [address]- 6453 Mar, [facility] [place] [facility] [address] [id number] [place] [address]- 7686 Mar, [facility] [place] [facility] [address] [id number] [place] [address]- 3969 Mar, [facility] [place] [facility] [address] [id number] [place] [address]- 8758 Mar, [facility] [place] [facility] [address] [id number] [place] [address]- 6990 Mar, [facility] [place] [facility] [address] [id number] [place] [address]- 4594 Mar, [facility] [place] [facility] [address] [id number] [place] [address]- 2812 Mar, [facility] [place] [facility] [address] [id number] [place] [address]- 6446 18 Mar, 2014 [facility] [place] [facility] [address] [id number] [place] [address]- 0288 15 Mar, 2014 [facility] [place] [facility] [address] [id number] [place] [address]- 4926 15 Mar, 2014 [facility] [place] [facility] [address] [id number] [place] [address]- 6967 15 Mar, 2014 [facility] [place] [facility] [address] [id number] [place] [address]- 0242 Mar, [facility] [place] [facility] [address] [id number] [place] [address]- 8226 Mar, [facility] [place] [facility] [address] [id number] [place] [address] Mar, [facility] [place] [facility] [address] [id number] [place] [address] Mar, [facility] [place] [facility] [address] [id number] [place] [address] Mar, [facility] [place] [facility] [address] [id number] [place] [address] 14[address] Feb, [facility] [place] [facility] [address] [id number] [place] [address] Feb, [facility] [place] [facility] [address] [id number] [place] [address] Feb, [facility] [place] [facility] [address] [id number] [address] Feb, [facility] [place] [facility] [address] [id number], [place] [address] Feb, [facility] [place] [facility] [address] [id number] [place] [address] Feb, [facility] [place] [facility] [address] [id number] [place] [address] 97[address] Feb, [facility] [place] [facility] [address] [id number] [place] [address] 8547 18 Feb, 2014 [facility] [place] [facility] [address] [id number] [place] [address] 18 Feb, 2014 [facility] [place] [facility] [address] [id number] [place] [address] 17 Feb, 2014 [facility] [place] [facility] [address] [id number] [place] [address] 17 Feb, 2014 [facility] [place] [facility] [address] [id number] [place] [address]478 17 Feb, 2014 [facility] [place] [facility] [address] [id number] [place] [address] 14[address] 17 Feb, 2014 [facility] [place] [facility] [address] [id number] [place] [address] 14 Feb, 2014 [facility] [place] [facility] [address] [id number] [place] [address] Feb, [facility] [place] [facility] [address] [id number] [place] [address]378 Feb, [facility] [place] [facility] [address] [id number] [place] [address] 36[address] 14 Feb, 2014 [facility] [place] [facility] [address] [id number] [place] [address]108 Feb, [facility] [place] [facility] [address] [facility] [id number] [place] [address] Feb, [facility] [place] [facility] [address] [id number] [place] [address]184 Feb, [facility] [place] [facility] [address] [id number] [place] [address]- 84[address] Feb, [facility] [place] [facility] [address] [id number] [place] [address] 79[address] Jan, [facility] [place] [facility] [address] [id number] [place] [address] 89[address] Jan, [facility] [place] [facility] [address] [id number] [place] [address] 3[address] Jan, [facility] [place] [facility] [address] [id number] [place] [address]678 30 Jan, 2014 [facility] [place] [facility] [address] [id number] [place] [address] 3588 Jan, [facility] [place] [facility] [address] [id number] [place] [address] Jan, [facility] [place] [facility] [address] [id number] [place] [address] Jan, [facility] [place] [facility] [address] [id number] [place] [address] 39[address] Jan, [facility] [place] [facility] [address] [id number] [place] [address] 7077 Jan, [facility] [place] [facility] [address] [id number] [place] [address]- 6968 Jan, [facility] [place] [facility] [address] [id number] [place] [address] 1452 Jan, [facility] [place] [facility] [address] [id number] [place] [address] 2819 Jan, [facility] [place] [facility] [address] [id number] [place] [address]- [address]32 17 Jan, 2014 [facility] [place] [facility] [address] [id number] [place] [address]- 5802 17 Jan, 2014 [facility] [place] [facility] [address] [id number] [place] [address]107 15 Jan, 2014 [facility] [place] [facility] [address] [id number] [place] [address]20 15 Jan, 2014 [facility] [place] [facility] [address] [id number] [place] [address]- [address] 14 Jan, 2014 [facility] [place] [facility] [address] [id number] [place] [address]- 67[address] 14 Jan, 2014 [facility] [place] [facility] [address] [id number] [place] [address]- 8952 Jan, [facility] [place] [facility] [address] [id number] [place] [address]- 9595 Jan, [facility] [place] [facility] [address] [id number] [place] [address]- 4673 Jan, [facility] [place] [facility] [address] [id number] [place] [address]- 5145 Jan, [facility] [place] [facility] [address] [id number] [place] [address]- 5943 Jan, [facility] [place] [facility] [address] [id number] [place] [address]- 2764 Jan, [facility] [place] [facility] [address] [id number] [place] [address]- 6186 Jan, [facility] [place] [facility] [address] [id number] [place] [address]- 1625 25 Dec, 2013 [facility] [place] [facility] [address] [id number] [place] [address]- 1540 25 Dec, 2013 [facility] [place] [facility] [address] [id number] [place] [address]- 0993 23 Dec, 2013 [facility] [place] [facility] [address] [id number] [place] [address]- [address]013 23 Dec, 2013 [facility] [place] [facility] [address] [id number] [place] [address]- [address]15 19 Dec, 2013 [facility] [place] [facility] [address] [id number] [address] 19 Dec, 2013 [facility] [place] [facility] [address] [id number] [place] [address]- 2543 17 Dec, 2013 [facility] [place] [facility] [address] [id number] [place] [address]- 4625 17 Dec, 2013 [facility] [place] [facility] [address] [id number] [place] [address]- 3072 09 Dec, 2013 [facility] [place] [facility] [address] [id number] [place] [address]- 9255 09 Sep, 2013 [facility] [facility] [address] [id number] [place] [address] 08 Sep, 2013 [facility] [place] [facility] [address] [id number] [place] [address] 6[address] 08 Dec, 2013 [facility] [place] [facility] [address] [id number] [place] [address] 4134 04 Sep, 2013 [facility] [place] [facility] [address] [id number] [place] [address]- 1731 04 Dec, 2013 [facility] [place] [facility] [address] [id number] [place] [address]- 9431 Dec, 2013 [facility] [place] [facility] [address] [id number] [place] [address]- 6454 Dec, 2013 [facility] [place] [facility] [address] [id number] [place] [address] 9308 Dec, 2013 [facility] [place] [facility] [address] [id number] [place] [address]- 5795 Dec, 2013 [facility] [place] [facility] [address] [id number] [place] [address] 9396 Nov, [facility] [place] [facility] [address] [id number] [place] [address]- 5049 Nov, [facility] [place] [facility] [address] [id number] [place] [address]- 2542 Nov, [facility] [place] [facility] [address] [id number] [place] [address]- 7241 Nov, [facility] [place] [facility] [address] [id number] [place] [address]- 8876 Nov, [facility] [place] [facility] [address] [id number] [place] [address]- 3313 Nov, [facility] [place] [address] [id number] [place] [address]- 3082 Nov, [facility] [place] [address] [id number] [place] [address]- 8358 Nov, [facility] [place] [facility] [address] [id number] [place] [address]- 6465 Nov, [facility] [place] [facility] [address] [id number] [place] [address]- 9667 Nov, [facility] [address] [id number] [place] [address]- 9475 Nov, [facility] [place] [facility] [address] [id number] [place] [address]- 5007 Nov, [facility] [place] [facility] [address] [id number] [place] [address]- 3421 Oct, [facility] [place] [facility] [address] [id number] [place] [address]- 9143 Oct, [facility] [place] [facility] [address] [id number] [place] [address]- 0363 Oct, [facility] [place] [facility] [address] [id number] [place] [address]- 0985 Oct, [facility] [place] [facility] [address] [id number] [place] [address]- 6888 Oct, [facility] [place] [facility] [address] [id number] [place] [address]- 6307 Oct, [facility] [address] [id number] [place] [address]- 9362 Oct, [facility] [address] [id number] [place] [address]- 9446 Oct, [facility] [place] [facility] [address] [id number] [place] [address]- 9672 Oct, [facility] [address] [id number] [place] [address]- 4783 Oct, [facility] [address] [id number] [place] [address]- 4221 16 Oct, 2013 [facility] [address] [id number] [place] [address]- 1367 16 Oct, 2013 [facility] [address] [id number] [place] [address]- 3424 14 Oct, 2013 [facility] [place] [facility] [address] [id number] [place] [address]- 9496 14 Oct, 2013 [facility] [address] [id number] [place] [address]- 1384 13 Oct, 2013 [facility] [address] [id number] [place] [address]- 6862 13 Oct, 2013 [facility] [place] [address] [id number] [place] [address]- 2362 Oct, [facility] [address] [id number] [place] [address]- 8908 27 Sep, 2013 [facility] [address] [id number] [place] [address]- 8022 27 Sep, 2013 [facility] [address] [id number] [place] [address]- 7000 20 Sep, 2013 [facility] [address] [id number] [place] [address]- 6894 20 Sep, 2013 [facility] [address] [id number] [place] [address]- 3188 18 Sep, 2013 [facility] [address] [id number] [place] [address]- 1895 18 Sep, 2013 [facility] [address] [id number] [place] [address]- 2127 17 Sep, 2013 [facility] [address] [id number] [place] [address]- 4971 17 Sep, 2013 [facility] [address] [id number] [place] [address]- 4601 11 Sep, 2013 [facility] [address] [id number] [place] [address]- 7108 Sep, [facility] [address] [id number] [place] [address]- 6449 Sep, [facility] [address] [id number] [place] [address]- 9356 Sep, [facility] [address] [id number] [place] [address]- 7529 Sep, [facility] [address] [id number] [place] [address]- 9090 Sep, [facility] [address] [id number] [place] [address]- 0350 Sep, [facility] [address] [id number] [place] [address]- 8242 Sep, [facility] [address] [id number] [place] [address]- 4118 Sep, [facility] [address] [id number] [place] [address]- 7744 Sep, [facility] [address] [id number] [place] [address]- 2351 Sep, [facility] [address] [id number] [place] [address]- 6378 Sep, [facility] [address] [id number] [place] [address]- 6817 Sep, [facility] [address] [id number] [place] [address]- 2039 Sep, [facility] [address] [id number] [place] [address]- 1357 August, [facility] [address] [id number] [place] [address]- 0668 August, [facility] [address] [id number] [place] [address]- 8772 August, [facility] [address] [id number] [place] [address]- 0442 August, [facility] [address] [id number] [place] [address]- 3346 August, [facility] [address] [id number] [place] [address]- 8730 August, [facility] [address] [id number] [place] [address]- 8490 August, [facility] [address] [id number] [place] [address]- 7070 August, [facility] [address] [id number] [place] [address]- 7934 August, [facility] [address] [id number] [place] [address]- 1851 August, [facility] [address] [id number] [place] [address]- 9772 August, [facility] [address] [id number] [place] [address]- 5431 Jul, [facility] [address] [id number] [place] [address]- 7850 Jul, [facility] [address] [id number] [place] [address]- 8665 Jul, [facility] [address] [id number] [place] [address]- 3188 Jul, [facility] [address] [id number] [place] [address]- 7845 Jul, [facility] [address] [id number] [place] [address]- 3169 Jul, [facility] [address] [id number] [place] [address]- 1688 Jul, [facility] [address] [id number] [place] [address]- 1997 Jul, [facility] [address] [id number] [place] [address]- 3714 18 Jul, 2013 [facility] [address] [id number] [place] [address]- 4760 18 Jul, 2013 [facility] [address] [id number] [place] [address]- 1000 16 Jul, 2013 [facility] [address] [id number] [place] [address]- 2611 Jul, [facility] [address] [id number] [place] [address]- 1256 14 Jul, 2013 [facility] [address] [id number] [place] [address]- 8294 Jul, [facility] [address] [id number] [place] [address]- 2075 Jul, [facility] [address] [id number] [place] [address]- 5781 Jul, [facility] [address] [id number] [place] [address]- 2161 Jul, [facility] [address] [id number] [place] [address]- 0703 Jul, [facility] [address] [id number] [place] [address]- 6427 Jul, [facility] [address] [id number] [place] [address]- 8297 Jul, [facility] [address] [id number] [place] [address]- 5603 Jul, [facility] [address] [id number] [place] [address]- 4088 Jul, [facility] [address] [id number] [place] [address]- 7689 Jul, [facility] [address] [id number] [place] [address]- 8798 Jun, [facility] [address] [id number] [place] [address]- 5307 Jun, [facility] [address] [id number] [place] [address]- 4049 Jun, [facility] [address] [id number] [place] [address]- 4782 Jun, [facility] [address] [id number] [place] [address]- 4496 Jun, [facility] [address] [id number] [place] [address]- 0533 Jun, [facility] [address] [id number] [place] [address]- 0409 Jun, [facility] [address] [id number] [place] [address]- 6250 Jun, [facility] [address] [id number] [place] [address]- 1202 Jun, [facility] [address] [id number] [place] [address]- 5889 Jun, [facility] [address] [id number] [place] [address]- 6889 Jun, [facility] [address] [id number] [place] [address]- 8194 Jun, [facility] [address] [id number] [place] [address]- 0509 May, [facility] [address] [id number] [place] [address]- 1181 May, [facility] [address] [id number] [place] [address]- 2725 Apr, [facility] [address] [id number] [address]- 3021 Apr, [facility] [address] [id number] [place] [address]- 9414 Apr, [facility] [address] [id number] [place] [address]- 2455 Apr, [facility] [address] [id number] [place] [address]- 2976 Apr, [facility] [address] [id number] [place] [address]- 4278 Apr, [facility] [address] [id number] [place] [address]- 3286 Apr, [facility] [address] [id number] [place] [address]- 3270 Apr, [facility] [address] [id number] [place] [address]- 1966 Apr, [facility] [address] [id number] [place] [address]- 2346 Apr, [facility] [address] [id number] [place] [address]- 2765 Apr, [facility] [address] [id number] [place] [address]- 9993 Mar, [facility] [address] [id number] [place] [address]- 6928 Mar, [facility] [address] [id number] [place] [address]- 7090 Mar, [facility] [address] [id number] [place] [address]- 3204 Mar, [facility] [address] [id number] [place] [address]- 1130 Feb, [facility] [address] [id number] [place] [address]- 9460 Feb, [facility] [address] [id number] [place] [address]- 0803 Feb, [facility] [address] [id number] [place] [address]- 2433 Feb, [facility] [address] [id number] [place] [address]- 9916 Feb, [facility] [address] [id number] [place] [address]- 7069 Feb, [facility] [address] [id number] [place] [address]- 5111 Feb, [facility] [place] [address] [id number] [place] [address]- 7161 Feb, [facility] [address] [id number] [place] [address]- 1878 Feb, [facility] [address] [id number] [place] [address]- 9393 Feb, [facility] [address] [id number] [place] [address]- 6038 Feb, [facility] [address] [id number] [place] [address]- 2312 Jan, [facility] [facility] [address] [id number] [place] [address]- 9127 Jan, [facility] [place] [facility] [address] [id number] [place] [address]- 7032 Jan, [facility] [place] [address] [id number] [place] [address]- 8083 Jan, [facility] [place] [facility] [address] [id number] [place] 8467 Jan, [facility] [place] [facility] [address] [id number] [place] 3922 Jan, [facility] [place] [facility] [address] [id number] [place] [address]794 Jan, [facility] [place] [facility] [address] [id number] [place] [address]- 1156 02 Jan, 2013 [facility] [place] [facility] [address] [id number] [place] [address]- 3560 30 Dec, 2012 [facility] [place] [facility] [address] [id number] [place] [address]- 7879 25 Dec, 2012 [facility] [place] [facility] [address] [id number] [place] [address]- 2057 18 Dec, 2012 [facility] [place] [facility] [address] [id number] [place] [address]- 7411 17 Dec, 2012 [facility] [place] [facility] [address] [id number] [place] [address]- 4990 17 Dec, 2012 [facility] [place] [facility] [address] [id number] [place] [address]- 3661 16 Dec, 2012 [facility] [place] [facility] [address] [id number] [place] [address]- 7491 13 Dec, 2012 [facility] [place] [facility] [address] [id number] [place] [address]- 1010 11 Dec, 2012 [facility] [place] [facility] [address] [id number] [place] [address]- 4637 05 Dec, 2012 [facility] [place] [facility] [address] [id number] [place] [address]- 4256 04 Dec, 2012 [facility] [place] [facility] [address] [id number] [address]- 9915 30 Nov, 2012 [facility] [place] [facility] [address] [id number] [place] [address]- 4416 29 Nov, 2012 [facility] [place] [facility] [address] [id number] [place] [address]- 1163 Nov, [facility] [place] [facility] [address] [id number] [place] [address]- 6254 16 Nov, 2012 [facility] [place] [facility] [address] [id number] [place] [address]- 1347 14 Nov, 2012 [facility] [place] [facility] [address] [id number] [place] [address]- 6641 12 Nov, 2012 [facility] [place] [facility] [address] [id number] [place] [address]- 0708 05 Nov, 2012 [facility] [place] [facility] [address] [id number] [place] [address]- 5786 29 Oct, 2012 [facility] [place] [facility] [address] [id number] [place] [address]- 8451 Oct, [facility] [place] [facility] [address] [id number] [place] [address]- 8600 24 Oct, 2012 [facility] [place] [facility] [address] [id number] [place] [address]- 1883 Oct, [facility] [place] [facility] [address] [id number] [place] [address]- 1326 15 Oct, 2012 [facility] [place] [facility] [address] [id number] [place] [address]- 7569 Oct, [facility] [place] [facility] [address] [id number] [place] [address]- 3085 Sep, [facility] [place] [facility] [address] [id number] [place] [address]- 0716 28 Sep, 2012 [facility] [place] [facility] [address] [id number] [place] [address]- 8863 27 Sep, 2012 [facility] [place] [facility] [address] [id number] [place] [address]- 5511 14 Sep, 2012 [facility] [place] [facility] [address] [id number] [place] [address]- 3536 13 Sep, 2012 [facility] [place] [facility] [address] [id number] [place] [address]- 7828 10 Sep, 2012 [facility] [place] [facility] [address] [id number] [place] [address]- 4924 07 Sep, 2012 [facility] [place] [facility] [address] [id number] [place] [address]- 2766 Sep, [facility] [address] [id number] [place] [address]- 5462 Sep, [facility] [facility] [address] [id number] [place] [address]- 9816 August, [facility] [address] [id number] [place] [address]- 6586 August, [facility] [facility] [address] [id number] [place] [address]- 6920 August, [facility] [place] [facility] [address] [id number] [place] [address]- 7873 August, [facility] [place] [facility] [address] [id number] [place] [address]- 6216 August, [facility] [facility] [address] [id number] [place] [address]- 6566 August, [facility] [place] [facility] [address] [id number] [place] [address] August, [facility] [place] [facility] [address] [id number] [place] [address] August, [facility] [place] [facility] [address] [id number] [place] [address] Jul, [facility] [place] [facility] [address] [id number] [place] [address] Jul, [facility] [address] [place] [id number] Jul [facility] [place] [facility] [address] [id number] [place] [address] Jun, [facility] [place] [facility] [address] [id number] [place] [address] Jun, [facility] [place] [facility] [address] [id number] [place] [address] Jun, [facility] [address] [id number] [place] [address] Jun, [facility] [place] [facility] [address] [id number] [place] [address] Jun, [facility] [address] [id number] [place] [address] Jun, [facility] [place] [facility] [address] [id number] [place] [address] May, [facility] [address] [id number] [place] [address] May, [facility] [place] [facility] [address] [id number] [place] [address] May, [facility] [address] [id number] [place] [address] May, [facility] [address] [id number] [place] [address] May, [facility] [address] [id number] [place] [address] Apr, [facility] [address] [id number] [place] [address] Apr, [facility] [address] [id number], [place] [address] Apr, [facility] [place] [facility] [address] [id number], [place] [address] Apr, [facility] [place] [facility] [address] [id number] [place] [address] Apr, [facility] [place] [facility] [address] [id number], [place] [address] Apr, [facility] [place] [facility] [address] [id number] [place] [address] Mar, [facility] [place] [facility] [address] [id number] [place] [address] 20 Mar, 2012 [facility] [place] [facility] [address] [id number] [place] [address] 20 Mar, 2012 [facility] [place] [facility] [address] [id number] [place] [address] 1496 19 Mar, 2012 [facility] [place] [facility] [address] [id number] [place] [address]56 19 Mar, 2012 [facility] [place] [facility] [address] [id number] [place] [address] 18 Mar, 2012 [facility] [place] [facility] [address] [id number] [place] [address]120 18 Mar, 2012 [facility] [place] [facility] [address] [id number] [place] [address]686 10 Mar, 2012 [facility] [place] [facility] [address] [id number] [place] [address] 10 Mar, 2012 [facility] [place] [facility] [address] [id number] [place] [address] 05 Mar, 2012 [facility] [place] [facility] [address] [id number] [place] [address] 05 Mar, 2012 [facility] [place] [facility] [address] [id number] [place] [address] 28 Feb, 2012 [facility] [place] [facility] [address] [id number] [place] [address] 28 Feb, 2012 [facility] [place] [facility] [address] [id number] [place] [address] Feb, [facility] [place] [facility] [address] [id number] [place] [address] 9436 Feb, [facility] [place] [facility] [address] [id number] [place] [address]16 Feb, [facility] [place] [facility] [address] [id number] [place] [address] 16 Feb, 2012 [facility] [place] [facility] [address] [id number] [place] [address] 1345 16 Feb, 2012 [facility] [place] [facility] [address] [id number] [place] [address] Feb, [facility] [place] [facility] [address] [id number] [place] [address] Feb, [facility] [place] [facility] [address] [id number] [place] [address] Feb, [facility] [place] [facility] [address] [id number] [place] [address] Feb, [facility] [place] [facility] [address] [id number] [place] [address]198 Jan, [facility] [place] [facility] [address] [id number] [place] [address] 1276 Jan, [facility] [place] [facility] [address] [id number] [place] [address] 280[address] Jan, [facility] [place] [facility] [address] [id number] [place] [address] Jan, [facility] [place] [facility] [address] [id number] [place] [address] Jan, [facility] [place] [facility] [address] [id number] [place] [address] 3060 Jan, [facility] [place] [facility] [address] [id number] [place] [address]- [address]881 09 Jan, 2012 [facility] [place] [facility] [address] [id number] [place] [address]85 24 Dec, 2011 [facility] [place] [facility] [address] [id number] [place] [address]- 1746 17 Sep2011 [facility] [place] [facility] [address] [id number] [place] [address]- 5316 13 Sep2011 [facility] [place] [facility] [address] [id number] [place] [address] 1376 Dec, [facility] [place] [facility] [address] [id number] [place] [address]407 Nov, [facility] [place] [facility] [address] [id number] [place] [address]- [address]61 Nov, [facility] [place] [facility] [address] [id number] [place] [address]- 0276 Nov, [facility] [place] [facility] [address] [id number] [place] [address]- 7647 Nov, [facility] [place] [facility] [address] [id number] [place] [address]- [address]242 Nov, [facility] [place] [facility] [address] [id number] [place] [address]- [address]778 Nov, [facility] [place] [facility] [address] [id number] [place] [address]- 2975 Nov, [facility] [place] [facility] [address] [id number] [place] [address]- 3736 Nov, [facility] [place] [facility] [address] [id number] [place] [address]- 286[address] Nov, [facility] [place] [facility] [address] [id number] [place] [address]- 2733 Nov, [facility] [place] [facility] [address] [id number] [place] [address]- 4966 Nov, [facility] [place] [facility] [address] [id number] [place] [address]- 1010 Nov, [facility] [place] [facility] [address] [id number] [place] [address]- 7618 Nov, [facility] [place] [facility] [address] [id number] [place] [address]- 1291 Oct, [facility] [place] [facility] [address] [id number] [place] [address]- 6363 Oct, [facility] [place] [facility] [address] [id number] [place] [address]- 0335 Oct, [facility] [address] [id number] [place] [address]- 0390 Oct, [facility] [place] [facility] [address] [id number] [place] [address]- 7506 Oct, [facility] [place] [facility] [address] [id number] [place] [address]- 9715 Oct, [facility] [place] [facility] [address] [id number] [place] [address]- 4598 Oct, [facility] [place] [facility] [address] [id number] [place] [address]- 9839 Oct, [facility] [place] [facility] [address] [id number] [place] [address]- 3439 Oct, [facility] [place] [facility] [address] [id number] [place] [address] Sep, [facility] [place] [facility] [address] [id number] [place] [address] Sep, [facility] [place] [facility] [address] [id number] [place] [address] Sep, [facility] [place] [facility] [address] [id number] [place] [address] Sep, [facility] [place] [facility] [address] [id number] [place] [address] Sep, [facility] [place] [facility] [address] [id number] [place] [address] Sep, [facility] [place] [facility] [address] [id number] [place] [address] Sep, [facility] [place] [facility] [address] [id number] [place] [address] Sep, [facility] [place] [facility] [address] [id number] [place] [address] August, [facility] [place] [address] [id number] [address] August, [facility] [place] [address] [id number] [address] August, [facility] [place] [address] [id number] [address] August, [facility] [place] [id number] [address] August, [facility] [place] [address] [id number] [address] August, [facility] [place] [id number], [place] [address] August, [facility] [place] [id number], [place] [address] August, [facility] [place] [id number], [place] [address] August, [facility] [place] [id number], [place] [address] August, [facility] [place] [address] [id number] [address] August, [facility] [place] [id number], [place] [address] August, [facility] [place] [address] [id number] [address] Oct, IMMUNIZATIONS No Known Immunizations SOCIAL HISTORY Never Assessed REASON FOR VISIT Refill request PLAN OF CARE VITAL SIGNS MEDICATIONS Unknown Medications RESULTS No Results PROCEDURES No Known procedures INSTRUCTIONS MEDICATIONS ADMINISTERED No Known Medications MEDICAL (GENERAL) HISTORY Type Description Date Medical History asthma Medical History acid reflux Medical History headache Medical History chronic pain-back and legs Medical History depression Medical History anxiety Medical History anger outbursts Medical History obesity Medical History Diabetic Medical History R foot fracture 2018 Surgical History abdominal surgery-to remove abscess 2007 Surgical History tonsillectomy Surgical History bladder surgery Hospitalization History [facility] for right groin pain 05/2011 Hospitalization History [facility] for wound on buttocks 08/2012 Hospitalization History [facility], hypoxia secondary to pneumonia 12/02-12/09 Hospitalization History Pneumonia, elevated CO2 on Bipap was in ICU 08/2013 Hospitalization History Hypoxia, Exacerbation COPD, Chest pain 09/05/15 Hospitalization History suicidal ideations-[place] 12/28 Hospitalization History hypoxia--[facility] 02/13/2016 Hospitalization History shortness of breath at june 2016 Hospitalization History Shortness of breath at august 2016 Hospitalization History SOB, chest pain at 12/2016
--- OUTSIDE RECORDS SUMMARY | 2017-11-24 17:23 | XMS REPORT ---
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 [address] [facility] [id number] [address]- 0018 Mar, [facility] [address] [facility] [id number] [address]- 3470 Mar, [facility] [address] [facility] [id number] [address]- 1816 Mar, [facility] [address] [facility] [id number] [address]- 9257 Mar, [facility] [address] [facility] [id number] [place] [address] 54193- 2931 Mar, [facility] [address] [facility] [id number] [address]- 4906 Mar, [facility] [id number] [place] [address] 80929- 4307 Feb, Unspecified mood [affective] disorder F39 [facility] [id number] [address]- 5255 Feb, [facility] [id number] [address]- 2120 Feb, [facility] [address], [place] [address]- 3593 Jan, Unspecified mood [affective] disorder F39 [facility] [id number] [id number] [id number] Jan, Encounter for dental examination Z01.20 [facility] [address], [place] [address]- 2123 Jan, [facility] [id number] [address]- 2854 Jan, [facility] [id number] [address]- 4447 Jan, [facility] [id number] [place] [address] 32502- 9118 Jan, [facility] [address] 51399- 5793 Jan, [facility] [address] 95286- 4427 Jan, Abdominal abscess K65.1 and Dental caries K02.9 [facility] [address] 96418- 6265 Jan, [facility] [address] 25371- 8622 30 Dec, 2014 Diabetes with neurological manifestations, type II or unspecified type, not stated as uncontrolled 250.60 ; Essential hypertension, benign 401.1 ; Concussion 850.9 and Skin texture changes 782.8 [facility] [address] 91845- 4047 Dec, [facility] [address] 54625- 7663 24 Dec, 2014 [facility] [address] 75425- 1294 Dec, [facility] [id number] [place] [address] 46330- 7781 Dec, [facility] [id number] [place] [address] 70255- 0639 17 Dec, 2014 Affective disorder 296.90 [facility] [id number] [place] [address] 34978- 0530 14 Dec, 2014 [facility] [address] 23419- 9660 10 Dec, 2014 Affective disorder 296.90 [facility] [id number] [place] [address] 25765- 8447 04 Dec, 2014 [facility] [address] 62997- 8472 Dec, [facility] [address], [place] [address] 2546 Dec, [facility] [id number] [place] [address] 68806 2546 Dec, [facility] [id number] [place] [address] 06323 2546 Nov, Affective disorder 296.90 [facility] [id number] [place] [address] 32140 2546 Nov, [facility] [id number] [place] [address] 07850 2546 Nov, Affective disorder 296.90 [facility] [id number] [place] [address] 38487- 9566 Nov, Diarrhea 787.91 [facility] [id number] [place] [address] 93934 2546 Nov, [facility] [id number] [place] [address] 75251 2546 Nov, Diarrhea 787.91 [facility] [id number] [place] [address] 52205 2546 Nov, Diarrhea 787.91 and Hyperlipidemia 272.4 [facility] [address], [place] [address] 2546 Nov, Diarrhea 787.91 [facility] [id number] [place] [address] 59097 2546 Nov, Affective disorder 296.90 [facility] [id number] [place] [address] 23113 2546 Nov, Affective disorder 296.90 [facility] [address], [place] [address]- 2546 Nov, Affective disorder 296.90 [facility] [id number] [place] [address] 80612 2546 Nov, [facility] [address], [place] [address]- 1137 Nov, [facility] [address], [place] [address]- 5994 Nov, [facility] [address], [place] [address]- 7278 Nov, Episodic mood disorder 296.90 [facility] [address], [place] [address]- 9564 Nov, [facility] [address], [place] [address]- 6899 Nov, [facility] [address], [place] [address]- 2151 Nov, [facility] [address], [place] [address]- 5224 Nov, [facility] [address], [place] [address]- 7050 Nov, [facility] [address], [place] [address]- 5352 Nov, Lymphedema 457.1 ; Hyperlipidemia 272.4 ; Essential hypertension, benign 401.1 and Numbness of toes 782.0 [facility] [address], [place] [address]- 9089 Nov, Episodic mood disorder 296.90 [facility] [address], [place] [address]- 7019 Oct, [facility] [address], [place] [address]- 7440 Oct, [facility] [address], [place] [address]- 1299 Oct, [facility] [id number] [address]- 0541 Oct, [facility] [id number] [address]- 5567 14 Oct, 2014 [facility] [address] [facility] [id number] [address]- 3470 Oct, 2014 [facility] [address] [facility] [id number], [place] [address]- 7156 Oct, 2014 [facility] [address] [facility] [id number] [address]- 3084 Oct, 2014 [facility] [address] [facility] [id number] [address]- 0371 Oct, Episodic mood disorder 296.90 [facility] [id number] [place] [address]- 7659 30 Sep, 2014 [facility] [address] [facility] [id number] [address]- 2001 Sep, [facility] [address], [place] [address]- 5283 Sep, [facility] [address] [facility] [id number], [place] [address]- 3172 Sep, [facility] [address] [address]- 9649 Sep, [facility] [id number] [address]- 1702 Sep, Episodic mood disorder 296.90 [facility] [address], [place] [address]- 6364 Sep, Unspecified episodic mood disorder 296.90 [facility] [address] [facility] [id number] [address]- 6147 Sep, [facility] [id number] [address]- 9390 Sep, [facility] [id number] [address]- 4687 Sep, Episodic mood disorder 296.90 [facility] [address], [place] [address]- 8517 Sep, [facility] [id number] [place] [address] 55644- 7922 Sep, [facility] [address], [place] [address]- 9750 Sep, [facility] [id number] [place] [address] 93700- 3621 Sep, Hematemesis 578.0 and Vomiting 787.03 [facility] [id number] [place] [address]- 3349 Sep, Episodic mood disorder 296.90 [facility] [id number] [place] [address]- 6264 Sep, [facility] [id number] [place] [address] 76229- 9965 Sep, [facility] [id number] [place] [address]17- 6015 Sep, Diabetes mellitus without mention of complication, type II or unspecified type, not stated as uncontrolled 250.00 and Other chronic pain 338.29 [facility] [id number] [address] Sep, Episodic mood disorder 296.90 [facility] [id number] [address] Sep, [facility] [id number] [address] Sep, Episodic mood disorder 296.90 [facility] [id number] [place] [address] 175630- 4264 Sep, [facility] [id number] [address] August, [facility] [id number] [place] [address]- 3370 August, [facility] [address] [facility] [id number] [place] [address] August, Episodic mood disorder 296.90 [facility] [address] [facility] [id number] [place] [address] August, [facility] [id number] [place] [address] August, Unspecified episodic mood disorder 296.90 [facility] [id number] [place] [address]- [address] August, Vomiting 787.03 [facility] [id number] [place] [address], [place] [address]- [address] August, [facility] [id number] [place] [address] August, [facility] [id number] [place] [address]- [address] August, [facility] [id number] [facility] [place] [address] August, [facility] [id number] [place] [address] August, [facility] [address] [id number] [address] Jul, [facility] [id number] [place] [address] Jul, [facility] [address] [id number] [place] [address] Jul, [facility] [address] [id number] [place] [address] Jun, [facility] [address] [facility] [id number] [place] [address] Jun, [facility] [address] [id number] [place] [address] Jun, [facility] [place] [facility] [address] [id number] [place] [address] 2884 30 Jun, 2014 [facility] [place] [facility] [address] [id number] [place] [address]- 2293 Jun, [facility] [place] [facility] [address] [id number] [place] [address]- 3165 Jun, [facility] [place] [facility] [address] [id number] [place] [address]- 1614 Jun, [facility] [place] [facility] [address] [id number] [place] [address]- 9022 Jun, [facility] [place] [facility] [address] [id number] [place] [address]- 4195 Jun, [facility] [place] [facility] [address] [id number] [place] [address]- 9021 Jun, [facility] [place] [facility] [address] [id number] [place] [address]- 2873 Jun, [facility] [place] [facility] [address] [id number] [place] [address]- 7958 Jun, [facility] [place] [facility] [address] [id number] [place] [address] 1933 Jun, [facility] [place] [facility] [address] [id number] [place] [address]- 3382 Jun, [facility] [place] [facility] [address] [id number] [place] [address]- 3908 Jun, [facility] [place] [facility] [address] [id number] [place] [address]- 1569 Jun, [facility] [place] [facility] [address] [id number] [place] [address]- 9779 Jun, [facility] [place] [facility] [address] [id number] [place] [address] Jun, [facility] [place] [facility] [address] [id number] [place] [address]- 4894 23 Jun, 2014 [facility] [place] [facility] [address] [id number] [place] [address]- 2151 21 Jun, 2014 [facility] [place] [facility] [address] [id number] [place] [address]- 3105 21 Jun, 2014 [facility] [place] [facility] [address] [id number] [place] [address]- 1083 20 Jun, 2014 [facility] [place] [facility] [address] [id number] [place] [address]- 3726 20 Jun, 2014 [facility] [place] [facility] [address] [id number] [place] [address]- 8916 20 Jun, 2014 [facility] [place] [facility] [address] [id number] [place] [address]- 8717 20 Jun, 2014 [facility] [place] [facility] [address] [id number] [place] [address]- 3223 19 Jun, 2014 [facility] [place] [facility] [address] [id number] [place] [address]- 5279 19 Jun, 2014 [facility] [place] [facility] [address] [id number] [place] [address]- 8897 18 Jun, 2014 [facility] [place] [facility] [address] [id number] [place] [address]- 5557 18 Jun, 2014 [facility] [place] [facility] [address] [id number] [place] [address]- 7763 17 Jun, 2014 [facility] [place] [facility] [address] [id number] [place] [address]- 5347 17 Jun, 2014 [facility] [place] [facility] [address] [id number] [place] [address]- 4878 16 Jun, 2014 [facility] [place] [facility] [address] [id number] [place] [address]- 5942 16 Jun, 2014 [facility] [place] [facility] [address] [id number] [place] [address]- 6289 16 Jun, 2014 [facility] [place] [facility] [address] [id number] [place] [address]- 7216 16 Jun, 2014 [facility] [place] [facility] [address] [id number] [place] [address]- 4874 16 Jun, 2014 [facility] [place] [facility] [address] [id number] [place] [address]- 6456 16 Jun, 2014 [facility] [place] [facility] [address] [id number] [place] [address]- 4070 13 Jun, 2014 [facility] [place] [facility] [address] [id number] [place] [address]- 7059 13 Jun, 2014 [facility] [place] [facility] [address] [id number] [place] [address]- 7109 Jun, 2014 [facility] [place] [facility] [address] [id number] [place] [address]- 7601 Jun, 2014 [facility] [place] [facility] [address] [id number] [place] [address]- 6041 Jun, 2014 [facility] [place] [facility] [address] [id number] [place] [address]- 3714 Jun, 2014 [facility] [place] [facility] [address] [id number] [place] [address]- 7074 Jun, 2014 [facility] [place] [facility] [address] [id number] [place] [address]- 0202 Jun, 2014 [facility] [place] [facility] [address] [id number] [place] [address]- 4714 Jun, 2014 [facility] [place] [facility] [address] [id number] [place] [address]- 9055 Jun, 2014 [facility] [place] [facility] [address] [id number] [place] [address]- 8545 Jun, 2014 [facility] [place] [facility] [address] [id number] [place] [address]- 5086 Jun, 2014 [facility] [place] [facility] [address] [id number] [place] [address]- 3524 Jun, [facility] [place] [facility] [address] [id number] [place] [address]- 2906 Jun, [facility] [place] [facility] [address] [id number] [place] [address]- 0433 Jun, [facility] [place] [facility] [address] [id number] [place] [address]- 2194 Jun, [facility] [place] [facility] [address] [id number] [place] [address]- 8114 Jun, [facility] [place] [facility] [address] [id number] [place] [address]- 1163 Jun, [facility] [place] [facility] [address] [id number] [place] [address]- 3612 Jun, [facility] [place] [facility] [address] [facility] [id number] [place] [address]- 3732 Jun, [facility] [place] [facility] [address] [facility] [id number] [place] [address]- 9641 May, 2014 [facility] [place] [facility] [address] [facility] [id number] [place] [address]- 2808 May, [facility] [place] [facility] [address] [id number] [place] [address]- 4020 May, [facility] [place] [facility] [address] [id number] [place] [address]- 5914 May, 2014 [facility] [place] [facility] [address] [facility] [id number] [place] [address]- 7339 May, 2014 [facility] [place] [facility] [address] [id number] [place] [address]- 2376 May, 2014 [facility] [place] [facility] [address] [facility] [id number] [place] [address]- 2253 May, 2014 [facility] [place] [facility] [address] [facility] [id number] [place] [address]- 6747 May, 2014 [facility] [place] [facility] [address] [id number] [place] [address]- 7013 20 May, 2014 [facility] [place] [facility] [address] [id number] [place] [address]- 2492 May, 2014 [facility] [place] [facility] [address] [id number] [place] [address]- 2546 18 May, 2014 [facility] [place] [facility] [address] [id number] [place] [address]- 6804 18 May, 2014 [facility] [place] [facility] [address] [id number] [place] [address]- 5073 13 May, 2014 [facility] [place] [facility] [address] [id number] [place] [address]- 2114 May, 2014 [facility] [place] [facility] [address] [facility] [id number] [place] [address]- 0375 May, 2014 [facility] [place] [facility] [address] [facility] [id number] [place] [address]- 8832 May, 2014 [facility] [place] [facility] [address] [facility] [id number] [place] [address]- 7814 May, 2014 [facility] [place] [facility] [address] [facility] [id number] [place] [address]- 5772 May, 2014 [facility] [place] [facility] [address] [facility] [id number] [place] [address]- 4787 May, 2014 [facility] [place] [facility] [address] [facility] [id number] [address]- 2544 May, 2014 [facility] [place] [facility] [address] [facility] [id number] [place] [address]- 5294 May, 2014 [facility] [place] [facility] [address] [facility] [id number] [place] [address]- 4375 May, 2014 [facility] [place] [facility] [address] [facility] [id number] [place] [address]- 5702 May, 2014 [facility] [place] [facility] [address] [facility] [id number] [place] [address]- 8774 05 May, 2014 [facility] [place] [facility] [address] [id number] [place] [address]- 5717 May, [facility] [place] [facility] [address] [id number] [place] [address]- 2976 May, [facility] [place] [facility] [address] [id number] [place] [address]- 5936 May, [facility] [place] [facility] [address] [id number] [place] [address]- 7333 Apr, [facility] [place] [facility] [address] [id number] [place] [address]- 6432 Apr, [facility] [place] [facility] [address] [id number] [place] [address]- 8386 Apr, [facility] [place] [facility] [address] [id number] [place] [address]- 0700 Apr, [facility] [place] [facility] [address] [id number] [place] [address]- 6788 Apr, [facility] [place] [facility] [address] [id number] [place] [address]- 6276 Apr, [facility] [place] [facility] [address] [id number] [place] [address]- 7517 Apr, [facility] [place] [facility] [address] [id number] [place] [address]- 0046 Apr, [facility] [place] [facility] [address] [id number] [place] [address]- 2543 Apr, [facility] [place] [facility] [address] [id number] [place] [address]- 8604 Apr, [facility] [place] [facility] [address] [id number] [place] [address]- 3115 Apr, [facility] [place] [facility] [address] [id number] [place] [address]- 8497 Apr, [facility] [place] [facility] [address] [id number] [place] [address]- 2680 Apr, [facility] [place] [facility] [address] [id number] [place] [address]- 9126 Apr, [facility] [place] [facility] [address] [id number] [place] [address]- 7540 Apr, [facility] [place] [facility] [address] [id number] [place] [address]- 1625 Apr, [facility] [place] [facility] [address] [id number] [place] [address]- 8746 Apr, [facility] [place] [facility] [address] [id number] [place] [address]- 2806 Apr, [facility] [place] [facility] [address] [id number] [place] [address]- 7146 Apr, [facility] [place] [facility] [address] [id number] [place] [address]- 8382 Apr, [facility] [place] [facility] [address] [id number] [place] [address]- 0094 Mar, [facility] [place] [facility] [address] [id number] [place] [address]- 5299 Mar, [facility] [place] [facility] [address] [id number] [place] [address]- 5854 Mar, [facility] [place] [facility] [address] [id number] [place] [address]- 6620 Mar, [facility] [place] [facility] [address] [id number] [place] [address]- 2956 Mar, [facility] [place] [facility] [address] [id number] [place] [address]- 3432 Mar, [facility] [place] [facility] [address] [id number] [place] [address]- 1580 Mar, [facility] [place] [facility] [address] [id number] [place] [address]- 7182 18 Mar, 2014 [facility] [place] [facility] [address] [id number] [place] [address]- 3053 15 Mar, 2014 [facility] [place] [facility] [address] [id number] [place] [address]- 3401 15 Mar, 2014 [facility] [place] [facility] [address] [id number] [place] [address]- 7187 15 Mar, 2014 [facility] [place] [facility] [address] [id number] [place] [address]- 4890 15 Mar, 2014 [facility] [place] [facility] [address] [id number] [place] [address]- 3976 Mar, [facility] [place] [facility] [address] [id number] [place] [address]- 3529 Mar, [facility] [place] [facility] [address] [id number] [place] [address]- 3093 Mar, [facility] [place] [facility] [address] [id number] [place] [address]- 2598 Mar, [facility] [place] [facility] [address] [id number] [place] [address]- 7941 Feb, [facility] [place] [facility] [address] [id number] [place] [address]- 0038 Feb, [facility] [place] [facility] [address] [id number] [place] [address]- 2879 Feb, [facility] [place] [facility] [address] [id number], [place] [address]- 0440 Feb, [facility] [place] [facility] [address] [id number] [place] [address]- 9842 Feb, [facility] [place] [facility] [address] [id number] [place] [address]- 7183 Feb, [facility] [place] [facility] [address] [id number] [place] [address]- 4900 Feb, [facility] [place] [facility] [address] [id number] [place] [address]- 1687 18 Feb, 2014 [facility] [place] [facility] [address] [id number] [place] [address]- 8395 18 Feb, 2014 [facility] [place] [facility] [address] [id number] [place] [address]- 7152 17 Feb, 2014 [facility] [place] [facility] [address] [id number] [place] [address]- 1864 17 Feb, 2014 [facility] [place] [facility] [address] [id number] [place] [address]- 7313 17 Feb, 2014 [facility] [place] [facility] [address] [id number] [place] [address]- 3157 17 Feb, 2014 [facility] [place] [facility] [address] [id number] [place] [address]- 3832 14 Feb, 2014 [facility] [place] [facility] [address] [id number] [place] [address]- 0302 14 Feb, 2014 [facility] [place] [facility] [address] [id number] [place] [address]- 7806 14 Feb, 2014 [facility] [place] [facility] [address] [id number] [place] [address]- 7799 14 Feb, 2014 [facility] [place] [facility] [address] [id number] [place] [address]- 1253 10 Feb, 2014 [facility] [place] [facility] [address] [id number] [place] [address]- 4300 10 Feb, 2014 [facility] [place] [facility] [address] [id number] [place] [address]- 9964 Feb, [facility] [place] [facility] [address] [id number] [place] [address]- 5960 Feb, [facility] [place] [facility] [address] [id number] [place] [address]- 9552 30 Jan, 2014 [facility] [place] [facility] [address] [id number] [place] [address]- 4159 30 Jan, 2014 [facility] [place] [facility] [address] [id number] [place] [address]- 8205 30 Jan, 2014 [facility] [place] [facility] [address] [id number] [place] [address]- 0794 30 Jan, 2014 [facility] [place] [facility] [address] [id number] [place] [address]- 1989 Jan, [facility] [place] [facility] [address] [id number] [place] [address]- 3189 Jan, [facility] [place] [facility] [address] [id number] [place] [address]- 7552 Jan, [facility] [place] [facility] [address] [id number] [place] [address]- 0423 Jan, [facility] [place] [facility] [address] [id number] [place] [address]- 6395 Jan, [facility] [place] [facility] [address] [id number], [place] [address]- 0243 Jan, [facility] [place] [facility] [address] [id number] [place] [address]- 3770 17 Jan, 2014 [facility] [place] [facility] [address] [id number], [place] [address]- 2947 17 Jan, 2014 [facility] [place] [facility] [address] [id number], [place] [address]- 8266 17 Jan, 2014 [facility] [place] [facility] [address] [id number], [place] [address]- 4993 17 Jan, 2013 [facility] [place] [facility] [address] [id number] [place] [address]- 0828 15 Jan, 2014 [facility] [place] [facility] [address] [id number], [place] [address]- 4347 15 Jan, 2014 [facility] [place] [facility] [address] [id number], [place] [address]- 9149 14 Jan, 2014 [facility] [place] [facility] [address] [id number] [place] [address]- 3987 14 Jan, 2014 [facility] [place] [facility] [address] [id number] [place] [address]- 6593 13 Jan, 2014 [facility] [place] [facility] [address] [id number] [place] [address]- 8749 Jan, [facility] [place] [facility] [address] [id number] [place] [address]- 4086 Jan, [facility] [place] [facility] [address] [id number] [place] [address]- 3812 Jan, [facility] [place] [facility] [address] [id number] [place] [address]- 9575 10 Jan, 2014 [facility] [place] [facility] [address] [id number] [place] [address]- 9982 Jan, [facility] [place] [facility] [address] [id number] [place] [address]- 9900 Jan, [facility] [place] [facility] [address] [id number] [place] [address]- 9892 25 Sep, 2013 [facility] [place] [facility] [address] [id number] [place] [address]- 2548 25 Sep, 2013 [facility] [place] [facility] [address] [id number] [place] [address]- 2547 23 Sep, 2013 [facility] [place] [facility] [address] [id number] [place] [address]- 2540 23 Sep, 2013 [facility] [place] [facility] [address] [id number] [place] [address]- 2542 19 Sep, 2013 [facility] [place] [facility] [address] [id number] [place] [address] 2544 19 Sep, 2013 [facility] [place] [facility] [address] [id number] [place] [address]- 2543 17 Sep, 2013 [facility] [place] [facility] [address] [id number] [place] [address]- 2546 17 Sep, 2013 [facility] [place] [facility] [address] [id number] [place] [address]- 9626 09 Sep, 2013 [facility] [place] [facility] [address] [id number] [place] [address]- 5890 09 Dec, 2013 [facility] [place] [facility] [address] [id number] [place] [address]- 6551 08 Dec, 2013 [facility] [place] [facility] [address] [id number] [place] [address]- 0472 08 Dec, 2013 [facility] [place] [facility] [address] [id number] [place] [address]- 9011 Dec, 2013 [facility] [place] [facility] [address] [id number] [place] [address]- 6998 Dec, 2013 [facility] [place] [facility] [address] [id number] [place] [address]- 8142 Dec, 2013 [facility] [place] [facility] [address] [id number] [place] [address]- 6983 Dec, 2013 [facility] [place] [facility] [address] [id number] [place] [address]- 4990 Dec, 2013 [facility] [place] [facility] [address] [id number] [place] [address]- 1101 Dec, 2013 [facility] [place] [facility] [address] [id number] [place] [address]- 4216 Nov, [facility] [place] [facility] [address] [id number] [place] [address]- 4213 Nov, [facility] [place] [facility] [address] [id number] [place] [address] Nov, [facility] [place] [facility] [address] [id number] [place] [address] Nov, [facility] [place] [facility] [address] [id number] [place] [address] Nov, [facility] [place] [facility] [address] [id number] [place] [address] Nov, [facility] [place] [facility] [address] [id number] [place] [address] Nov, [facility] [place] [facility] [address] [id number] [place] [address] Nov, [facility] [place] [facility] [address] [id number] [place] [address] Nov, [facility] [place] [facility] [address] [id number] [place] [address] Nov, [facility] [place] [facility] [address] [id number] [place] [address] Nov, [facility] [place] [facility] [address] [id number] [place] [address] Nov, [facility] [place] [facility] [address] [id number] [place] [address] Oct, [facility] [place] [facility] [address] [id number] [place] [address] Oct, [facility] [place] [facility] [address] [id number] [place] [address] Oct, [facility] [place] [facility] [address] [id number] [place] [address] Oct, [facility] [place] [facility] [address] [id number] [place] [address] 69[address] Oct, [facility] [place] [facility] [address] [id number] [place] [address] Oct, [facility] [place] [facility] [address] [id number] [place] [address] 68[address] Oct, [facility] [place] [facility] [address] [id number] [place] [address] 5768 Oct, [facility] [place] [facility] [address] [id number] [place] [address] Oct, [facility] [place] [facility] [address] [id number] [place] [address] 22 Oct, 2013 [facility] [place] [facility] [address] [id number] [place] [address] 16 Oct, 2013 [facility] [place] [facility] [address] [id number] [place] [address]- [address] 16 Oct, 2013 [facility] [place] [facility] [address] [id number] [place] [address] 14 Oct, 2013 [facility] [place] [facility] [address] [id number] [place] [address] 14 Oct, 2013 [facility] [place] [facility] [address] [id number] [place] [address] 13 Oct, 2013 [facility] [place] [facility] [address] [id number] [place] [address] 13 Oct, 2013 [facility] [place] [facility] [address] [id number] [place] [address] 2013 [facility] [place] [facility] [address] [id number] [place] [address] 27 Sep, 2013 [facility] [place] [facility] [address] [id number] [place] [address] 27 Sep, 2013 [facility] [place] [facility] [address] [id number] [place] [address] 20 Sep, 2013 [facility] [place] [facility] [address] [id number] [place] [address] 6060 20 Sep, 2013 [facility] [place] [facility] [address] [id number] [place] [address] 18 Sep, 2013 [facility] [place] [facility] [address] [id number] [place] [address] 67[address] 18 Sep, 2013 [facility] [place] [facility] [address] [id number] [place] [address] 27[address] 17 Sep, 2013 [facility] [place] [facility] [address] [id number] [place] [address] 1638 Sep, [facility] [place] [facility] [address] [id number] [place] [address] 45[address] Sep, [facility] [place] [facility] [address] [id number] [place] [address] 8[address] Sep, [facility] [place] [facility] [address] [id number] [place] [address] 59[address] Sep, [facility] [place] [facility] [address] [id number] [place] [address] 46[address] Sep, [facility] [place] [facility] [address] [id number] [place] [address] 89[address] Sep, [facility] [place] [facility] [address] [id number] [place] [address] 59[address] Sep, [facility] [place] [facility] [address] [id number] [place] [address] 4[address] Sep, [facility] [place] [facility] [address] [id number] [place] [address]- 288[address] Sep, [facility] [place] [facility] [address] [id number] [place] [address] 90[address] Sep, [facility] [place] [facility] [address] [id number] [place] [address]- 09[address] Sep, [facility] [place] [facility] [address] [id number] [place] [address] Sep, [facility] [place] [facility] [address] [id number] [place] [address] 57[address] Sep, [facility] [place] [facility] [address] [id number] [place] [address] 1329 Sep, [facility] [place] [facility] [address] [id number] [place] [address] Sep, [facility] [place] [facility] [address] [id number] [place] [address] 79[address] August, [facility] [place] [facility] [address] [id number] [place] [address]562 August, [facility] [address] [id number] [place] [address] 130[address] August, [facility] [address] [id number] [place] [address]- 1482 August, [facility] [address] [id number] [place] [address] 3979 August, [facility] [place] [facility] [address] [id number] [place] [address]857 August, [facility] [address] [id number] [place] [address] August, [facility] [address] [id number] [place] [address]39 August, [facility] [address] [id number] [place] [address] August, [facility] [address] [id number] [place] [address] August, [facility] [address] [id number] [place] [address] August, [facility] [address] [id number] [place] [address] Jul, [facility] [place] [facility] [address] [id number] [place] [address] Jul, [facility] [place] [facility] [address] [id number] [place] [address] 6645 Jul, [facility] [place] [facility] [address] [id number] [place] [address]- 4092 Jul, [facility] [place] [facility] [address] [id number] [place] [address]- 2827 Jul, [facility] [place] [facility] [address] [id number] [place] [address]- 7715 Jul, [facility] [place] [facility] [address] [id number] [place] [address]40 Jul, [facility] [place] [facility] [address] [id number] [place] [address] 1282 Jul, [facility] [place] [facility] [address] [id number] [place] [address] 4260 18 Jul, 2013 [facility] [place] [facility] [address] [id number] [place] [address] 5145 18 Jul, 2013 [facility] [place] [facility] [address] [id number] [place] [address] 7103 16 Jul, 2013 [facility] [place] [facility] [address] [id number] [place] [address]- 7982 Jul, [facility] [place] [facility] [address] [id number] [place] [address] 3286 Jul, [facility] [place] [facility] [address] [id number] [place] [address]- 7053 Jul, [facility] [place] [facility] [address] [id number] [place] [address]- 2876 Jul, [facility] [place] [facility] [address] [id number] [place] [address]- 3433 10 Jul, 2013 [facility] [place] [facility] [address] [id number] [place] [address]- 7516 10 Jul, 2013 [facility] [place] [facility] [address] [id number] [place] [address]- 2738 05 Jul, 2013 [facility] [place] [facility] [address] [id number] [place] [address]- 5678 05 Jul, 2013 [facility] [place] [facility] [address] [id number] [place] [address]- 9610 Jul, [facility] [place] [facility] [address] [id number] [place] [address]- 2407 Jul, [facility] [place] [facility] [address] [id number] [place] [address]- 0636 Jul, [facility] [place] [facility] [address] [id number] [place] [address]- 9206 Jul, [facility] [place] [facility] [address] [id number] [place] [address]- 1043 Jun, [facility] [place] [facility] [address] [id number] [place] [address]- 5552 Jun, [facility] [place] [facility] [address] [id number] [place] [address]- 9730 Jun, [facility] [place] [facility] [address] [id number] [place] [address]- 9457 Jun, [facility] [place] [facility] [address] [id number] [place] [address]- 0069 Jun, [facility] [place] [facility] [address] [id number] [place] [address]- 9762 Jun, [facility] [place] [facility] [address] [id number] [place] [address]- 5762 Jun, [facility] [place] [facility] [address] [id number] [place] [address]- 0068 Jun, [facility] [place] [facility] [address] [id number] [place] [address]- 6931 Jun, [facility] [place] [facility] [address] [id number] [place] [address]- 6639 Jun, [facility] [place] [facility] [address] [id number] [address]- 4621 Jun, [facility] [place] [facility] [address] [id number] [place] [address]- 1695 Jun, [facility] [place] [facility] [address] [id number] [place] [address]- 5859 May, [facility] [place] [facility] [address] [id number] [place] [address]- 1092 May, [facility] [place] [facility] [address] [id number] [place] [address]- 5732 31 Apr, 2013 [facility] [address] [id number] [place] [address]- 7739 Apr, [facility] [address] [id number] [place] [address]- 1444 Apr, [facility] [address] [id number] [place] [address]- 1542 Apr, [facility] [address] [id number] [place] [address]- 0108 Apr, [facility] [address] [id number] [place] [address]- 7685 Apr, [facility] [address] [id number] [place] [address]- 4630 Apr, [facility] [address] [id number] [place] [address]- 6858 Apr, [facility] [address] [id number] [place] [address]- 6761 Apr, [facility] [address] [id number] [place] [address]- 5329 Apr, [facility] [address] [id number] [place] [address]- 9316 Apr, [facility] [address] [id number] [place] [address]- 3354 16 Mar, 2013 [facility] [address] [id number] [place] [address]- 1743 Mar, [facility] [place] [facility] [address] [id number] [place] [address]- 7916 Mar, [facility] [address] [id number] [place] [address]- 2985 16 Mar, 2013 [facility] [address] [id number] [place] [address]- 9048 Feb, [facility] [place] [facility] [address] [id number] [place] [address]- 7158 Feb, [facility] [place] [facility] [address] [id number] [place] [address]- 9440 Feb, [facility] [place] [facility] [address] [id number] [place] [address]- 0317 Feb, [facility] [place] [facility] [address] [id number] [place] [address]- 4085 Feb, [facility] [place] [facility] [address] [id number] [place] [address]- 8850 Feb, [facility] [place] [facility] [address] [id number] [place] [address]- 8683 Feb, [facility] [place] [facility] [address] [id number] [place] [address]- 0004 Feb, [facility] [place] [facility] [address] [id number], [place] [address] 4175 Feb, [facility] [place] [facility] [address] [id number], [place] [address]- 0339 Feb, [facility] [place] [facility] [address] [id number], [place] [address]- 1690 Feb, [facility] [place] [facility] [address] [id number], [place] [address]- 9910 Jan, [facility] [place] [facility] [address] [id number], [place] [address]- 3229 Jan, [facility] [place] [facility] [address] [id number], [place] [address]- 5547 Jan, [facility] [place] [facility] [address] [id number], [place] [address]- 6126 Jan, [facility] [place] [facility] [address] [facility] [id number], [place] [address]- 6344 Jan, [facility] [place] [facility] [address] [id number], [place] [address]- 9928 10 Jan, 2013 [facility] [address] [id number] [place] [address]- 3288 03 Jan, 2013 [facility] [place] [facility] [address] [id number] [place] [address]- 9281 02 Jan, 2013 [facility] [place] [facility] [address] [id number] [place] [address]- 5847 30 Dec, 2012 [facility] [place] [facility] [address] [id number] [place] [address]- 5969 25 Dec, 2012 [facility] [place] [facility] [address] [id number] [place] [address]- 0417 18 Dec, 2012 [facility] [place] [facility] [address] [id number] [place] [address]- 4800 17 Dec, 2012 [facility] [place] [facility] [address] [id number] [place] [address]- 6606 17 Dec, 2012 [facility] [place] [facility] [address] [id number] [place] [address]- 0934 16 Dec, 2012 [facility] [place] [facility] [address] [id number] [place] [address]- 7935 13 Dec, 2012 [facility] [place] [facility] [address] [id number] [place] [address]- 5910 11 Dec, 2012 [facility] [place] [facility] [address] [id number] [place] [address] 2544 05 Dec, 2012 [facility] [place] [facility] [address] [id number] [place] [address]- 2549 04 Dec, 2012 [facility] [place] [facility] [address] [id number] [place] [address]- 3463 30 Nov, 2012 [facility] [place] [facility] [address] [id number] [place] [address]- 2500 29 Nov, 2012 [facility] [place] [facility] [address] [id number] [place] [address]- 6846 Nov, [facility] [place] [facility] [address] [id number] [place] [address]- 6914 16 Nov, 2012 [facility] [place] [facility] [address] [id number] [place] [address]- 9600 14 Nov, 2012 [facility] [place] [facility] [address] [id number] [place] [address]- 8323 Nov, [facility] [place] [facility] [address] [id number] [place] [address]- 2083 05 Nov, 2012 [facility] [place] [facility] [address] [id number] [place] [address]- 6248 29 Oct, 2012 [facility] [place] [facility] [address] [id number] [place] [address]- 2536 Oct, [facility] [place] [facility] [address] [id number] [place] [address]- 4767 24 Oct, 2012 [facility] [place] [facility] [address] [id number] [place] [address]- 3672 17 Oct, 2012 [facility] [place] [facility] [address] [id number] [place] [address]- 9674 15 Oct, 2012 [facility] [place] [facility] [address] [id number] [place] [address]- 5180 Oct, [facility] [place] [facility] [address] [id number] [place] [address]- 9272 28 Sep, 2012 [facility] [place] [facility] [address] [id number] [place] [address]- 1927 28 Sep, 2012 [facility] [place] [facility] [address] [id number] [place] [address]- 3429 27 Sep, 2012 [facility] [place] [facility] [address] [id number] [place] [address]- 1594 14 Sep, 2012 [facility] [place] [facility] [address] [id number] [place] [address]- 6427 13 Sep, 2012 [facility] [place] [facility] [address] [id number] [place] [address]- 9642 Sep, [facility] [address] [id number] [place] [address]- 4836 Sep, [facility] [address] [id number] [place] [address]- 9539 Sep, [facility] [address] [id number] [place] [address]- 0262 Sep, [facility] [address] [id number] [place] [address]- 0602 August, [facility] [address] [id number] [place] [address]- 0167 August, [facility] [address] [id number] [place] [address]- 5857 August, [facility] [address] [id number] [place] [address]- 6571 August, [facility] [address] [id number] [place] [address]- 2669 August, [facility] [address] [id number] [place] [address]- 1119 August, [facility] [address] [id number] [place] [address]- 0804 August, [facility] [address] [id number] [place] [address]- 5370 August, [facility] [address] [id number] [place] [address]- 1309 Jul, [facility] [address] [id number] [place] [address]- 1105 Jul, [address] [id number] Jul [facility] [address] [id number] [place] [address]- 1650 Jun, [facility] [address] [id number] [place] [address]- 1936 Jun, [facility] [address] [id number] [place] [address]- 1801 Jun, [facility] [address] [id number] [place] [address]- 7724 Jun, [facility] [address] [facility] [id number] [place] [address]- 5687 Jun, [facility] [address] [id number] [place] [address]- 9035 Jun, [facility] [address] [id number] [place] [address]- 1432 May, [facility] [address] [id number] [place] [address]- 3473 May, [facility] [address] [facility] [id number] [place] [address]- 5340 May, [facility] [address] [id number] [place] [address]- 8475 May, [facility] [address] [id number] [place] [address]- 1716 May, [facility] [address] [id number] [place] [address]- 2007 Apr, [facility] [address] [id number], [place] [address]- 8784 Apr, [facility] [place] [facility] [address] [id number], [place] [address]- 8865 Apr, [facility] [place] [facility] [address] [id number] [place] [address]- 2500 Apr, [facility] [place] [facility] [address] [id number] [place] [address]- 9283 Apr, [facility] [place] [facility] [address] [facility] [id number] [place] [address]- 8962 Apr, [facility] [place] [facility] [address] [id number] [place] [address]- 3686 Mar, [facility] [place] [facility] [address] [id number] [place] [address]- 4336 Mar, [facility] [place] [facility] [address] [id number] [place] [address] 2546 Mar, [facility] [place] [facility] [address] [id number] [place] [address]- 6886 Mar, [facility] [place] [facility] [address] [id number] [place] [address] 2546 Mar, [facility] [place] [facility] [address] [id number] [place] [address]- 6976 Mar, [facility] [place] [facility] [address] [id number] [place] [address]- 3177 Mar, [facility] [place] [facility] [address] [id number] [place] [address]- 3028 Mar, [facility] [place] [facility] [address] [id number] [place] [address]- 4959 Mar, [facility] [place] [facility] [address] [id number] [place] [address]- 5534 Mar, [facility] [place] [facility] [address] [id number] [place] [address]- 7677 Mar, [facility] [place] [facility] [address] [id number] [place] [address]- 5615 Feb, [facility] [place] [facility] [address] [id number] [place] [address] 2546 Feb, [facility] [place] [facility] [address] [id number] [place] [address]- 3176 Feb, [facility] [place] [facility] [address] [id number] [place] [address] 2546 Feb, [facility] [place] [facility] [address] [id number] [place] [address]- 2325 Feb, [facility] [place] [facility] [address] [id number] [place] [address]- 9518 Feb, [facility] [place] [facility] [address] [id number] [place] 3173 Feb, [facility] [place] [facility] [address] [facility] [id number] [place] [address]- 7965 Feb, [facility] [place] [facility] [address] [id number] [place] [address], [place] [address]- 6543 Feb, [facility] [place] [facility] [address] [id number] [place] 5974 Feb, [facility] [place] [facility] [address] [id number] [place] [address], [place] [address]- 4617 Feb, [facility] [place] [facility] [address] [facility] [id number] [place] [address]- 9604 Jan, [facility] [place] [facility] [address] [id number], [place] [address]- 4915 Jan, [facility] [place] [facility] [address] [id number] [place] [address]- 8557 Jan, [facility] [place] [facility] [address] [facility] [id number], [place] [address]- 2790 Jan, [facility] [place] [facility] [address] [id number], [place] [address]- 2136 Jan, [facility] [place] [facility] [address] [id number], [place] [address]- 8426 Jan, [facility] [place] [facility] [address] [id number], [place] [address]- 5191 Jan, [facility] [place] [facility] [address] [facility] [id number], [place] [address]- 9729 24 Dec, 2011 [facility] [place] [facility] [address] [facility] [id number], [place] [address]- 2658 17 Dec, 2011 [facility] [place] [facility] [address] [id number] [place] [address]- 1999 13 Dec, 2011 [facility] [place] [facility] [address] [id number] [place] [address]- 7070 12 Dec, 2011 [facility] [place] [facility] [address] [id number] [place] [address]- 2156 Nov, [facility] [place] [facility] [address] [id number] [place] [address]- 4976 Nov, [facility] [place] [facility] [address] [id number] [place] [address]- 2986 Nov, [facility] [place] [facility] [address] [id number] [place] [address]- 8088 15 Nov, 2011 [facility] [place] [facility] [address] [id number] [place] [address]- 4146 Nov, [facility] [place] [facility] [address] [id number] [place] [address]- 3925 Nov, [facility] [place] [facility] [address] [id number] [place] [address]- 2666 Nov, [facility] [place] [facility] [address] [id number] [place] [address]- 3847 Nov, [facility] [place] [facility] [address] [id number] [place] [address]- 9265 Nov, [facility] [place] [facility] [address] [id number] [place] [address]- 3514 Nov, [facility] [place] [facility] [address] [id number] [place] [address]- 2541 Nov, [facility] [place] [facility] [address] [id number] [place] [address]- 3663 Nov, [facility] [place] [facility] [address] [id number] [place] [address]- 1989 Nov, [facility] [place] [facility] [address] [id number] [place] [address]- 2471 Oct, [facility] [place] [facility] [address] [id number] [place] [address]- 4716 Oct, [facility] [place] [facility] [address] [id number] [place] [address]- 4888 Oct, [facility] [place] [facility] [address] [id number] [place] [address]- 5002 Oct, [facility] [place] [facility] [address] [id number] [place] [address]- 3835 Oct, [facility] [place] [facility] [address] [id number] [place] [address]- 6754 Oct, [facility] [place] [facility] [address] [id number] [place] [address]- 5959 Oct, [facility] [place] [facility] [address] [id number] [place] [address]- 6594 Oct, [facility] [place] [facility] [address] [id number] [place] [address]- 5756 Oct, [facility] [place] [facility] [address] [id number] [place] [address]- 3399 Sep, [facility] [place] [facility] [address] [id number] [place] [address]- 3027 Sep, [facility] [place] [facility] [address] [id number] [place] [address]- 5192 Sep, [facility] [place] [facility] [address] [id number] [place] [address]- 7127 Sep, [facility] [place] [facility] [address] [id number] [place] [address]- 2476 Sep, [facility] [place] [facility] [address] [id number] [place] [address]- 6350 Sep, [facility] [place] [facility] [address] [id number] [place] [address]- 4526 Sep, [facility] [place] [facility] [address] [id number] [place] [address]- 2546 Sep, [facility] [address] [id number], [place] [address]- 3803 August, [facility] [id number], [place] [address]- 4656 August, [facility] [id number], [place] [address]- 6286 August, [facility] [id number], [place] [address]- 3809 August, [facility] [id number], [place] [address]- 7815 August, [facility] [id number], [place] [address]- 2142 August, [facility] [id number], [place] [address]- 5809 August, [facility] [id number], [place] [address]- 7739 August, [facility] [id number], [place] [address]- 1524 August, [facility] [id number] [address] August, [facility] [id number] [address] August, [facility] [id number] [address] August, [facility] [id number] [address] Oct, IMMUNIZATIONS No Known Immunizations SOCIAL HISTORY Never Assessed REASON FOR VISIT Headache--tjanssenMA, --migraines are frequent and not going away with otc medication, gets lightheaded and sob then throws up. , --falling multiple times , gets sick when eats. , --constipation unable to have a bowel movement very painful and bleeding. , --left shoulder pain, swelling of legs and feet PLAN OF CARE Activity Details Follow Up 2 Weeks Reason: VITAL SIGNS Height 63 in 2017-07-25 Weight 351.5 lbs 2017-07-25 Temperature 98.6 degrees Fahrenheit 2017-07-25 Heart Rate 92 bpm 2017-07-25 Respiratory Rate 24 2017-07-25 BMI 62.26 kg/m2 2017-07-25 Blood pressure systolic 126 mmHg 2017-07-25 Blood pressure diastolic 82 mmHg 2017-07-25 MEDICATIONS Medication Instructions Dosage Frequency Start Date End Date Duration Status Sucralfate 1 GM Orally 4 times a day 1 tablet at bedtime on an empty stomach before meals 6h Active Mirtazapine 30 MG Orally Once a day 1 tablet at bedtime 24h May, 30 day(s) Active Ondansetron HCl 4 MG Orally 3 times a day 1 tablet as needed 8h Active Lasix 40 MG Orally Once a day 1 tablet 24h Active Nexium 40 mg Orally Once a day 1 capsule 24h Jul, 30 day(s) Active Triamcinolone Acetonide 0.1 % Externally Twice a day 1 application to affected area as needed 12h Active Guaifenesin 400 MG Orally every 4 hrs 1 tablet as needed 4h May, Active Cyclobenzaprine HCl 10 MG Orally Three times a day 1 tablet as needed 8h Active Womens One Daily - Active Potassium Chloride Eugenia ER 10 MEQ Orally Once a day 1 tablet with food 24h Active Montelukast Sodium 10 MG Orally Once a day 1 tablet in the evening 24h Active Benadryl Allergy 25 MG Orally 2 times a day 1 capsule 12h Active Triamcinolone Acetonide 0.025 % Externally Twice a day 1 application to affected area as needed 12h 11 Jul, 2017 Active Metformin HCl 1000 MG Orally Twice a day 1 tablet with meals 12h Active Atorvastatin Calcium 40 MG Orally Once a day 1 tablet 24h Active Ranitidine HCl 150 MG Orally twice a day 1 tablet 12h Active Lyrica 150 MG Orally twice a day 2 capsules 12h Active Lotrisone 1-0.05 % Externally Twice a day 1 application to affected area 12h Active Gemfibrozil 600 MG Orally Twice a day 1 tablet 12h Active RESULTS No Results PROCEDURES No Known procedures INSTRUCTIONS MEDICATIONS ADMINISTERED No Known Medications MEDICAL (GENERAL) HISTORY Type Description Date Medical History asthma Medical History acid reflux Medical History headache Medical History chronic pain-back and legs Medical History depression Medical History anxiety Medical History anger outbursts Medical History obesity Medical History Diabetic Medical History R foot fracture 2017 Surgical History abdominal surgery-to remove abscess 2007 Surgical History tonsillectomy Surgical History bladder surgery Hospitalization History [facility] for right groin pain 05/2011 Hospitalization History [facility] for wound on buttocks 08/2012 Hospitalization History [facility], hypoxia secondary to pneumonia 12/02-12/09 Hospitalization History Pneumonia, elevated CO2 on Bipap was in ICU 08/2013 Hospitalization History Hypoxia, Exacerbation COPD, Chest pain 09/05/15 Hospitalization History suicidal ideations-[place] 12/28 Hospitalization History hypoxia--[facility] 02/13/2016 Hospitalization History shortness of breath at june 2016 Hospitalization History Shortness of breath at august 2016 Hospitalization History SOB, chest pain at 12/2016
--- OUTSIDE RECORDS SUMMARY | 2017-11-24 17:25 | XMS REPORT ---
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 [facility] [id number], [place] [address]- 1905 Feb, [facility] [id number], [place] [address]- 2924 Jan, Unspecified mood [affective] disorder F39 [address] [id number] [id number] Jan, Encounter for dental examination Z01.20 [facility] [id number] [address]- 6814 Jan, [facility] [address] [facility] [id number], [place] [address]- 6671 Jan, [facility] [address], [place] [address]- 7885 Jan, [facility] [id number], [place] [address]- 8397 Jan, [facility] [id number] [place] [address] 04005- 1552 Jan, [facility] [id number] [place] [address] 52399- 0875 Jan, Abdominal abscess K65.1 and Dental caries K02.9 [facility] [id number] [place] [address] 01652- 4728 Jan, [facility] [address] 22753- 8313 30 Dec, 2014 Diabetes with neurological manifestations, type II or unspecified type, not stated as uncontrolled 250.60 ; Essential hypertension, benign 401.1 ; Concussion 850.9 and Skin texture changes 782.8 [facility] [address] 12670- 8164 Dec, [facility] [address] 01113- 3955 Dec, [facility] [address] 52808- 7878 Dec, [facility] [id number] [place] [address] 78794- 7663 Dec, [facility] [id number] [place] [address] 48703- 3705 17 Dec, 2014 Affective disorder 296.90 [facility] [id number] [place] [address] 14205- 9117 14 Dec, 2014 [facility] [address] 14108- 9661 10 Dec, 2014 Affective disorder 296.90 [facility] [id number] [place] [address] 38266- 9235 04 Dec, 2014 [facility] [address] 52183- 3129 Dec, [facility] [id number] [place] [address] 47630- 5229 Dec, 2014 [facility] [address], [place] [address]- 1794 Dec, [facility] [id number] [place] [address] 95280- 6065 Nov, Affective disorder 296.90 [facility] [address], [place] [address] 2546 Nov, [facility] [id number] [place] [address] 89841 2546 Nov, Affective disorder 296.90 [facility] [id number] [place] [address] 64467 2546 Nov, Diarrhea 787.91 [facility] [id number] [place] [address] 13646 2546 Nov, [facility] [id number] [place] [address] 40171 2546 Nov, Diarrhea 787.91 [facility] [id number] [place] [address] 17818 2546 Nov, Diarrhea 787.91 and Hyperlipidemia 272.4 [facility] [id number] [place] [address] 79623 2546 Nov, Diarrhea 787.91 [facility] [address], [place] [address] 2546 Nov, Affective disorder 296.90 [facility] [address], [place] [address] 2546 Nov, Affective disorder 296.90 [facility] [address], [place] [address] 2546 Nov, Affective disorder 296.90 [facility] [address], [place] [address] 2542 Nov, [facility] [address], [place] [address] 2546 Nov, [facility] [address], [place] [address]- 1193 Nov, [facility] [id number] [place] [address] 65338- 9221 Nov, Episodic mood disorder 296.90 [facility] [address], [place] [address]- 8362 Nov, [facility] [id number] [place] [address] 72965- 0187 Nov, [facility] [id number] [place] [address] 20452- 9160 Nov, [facility] [id number] [place] [address] 66669- 0781 Nov, [facility] [id number] [place] [address] 37755- 8521 Nov, [facility] [id number] [place] [address] 94473- 3208 Nov, Lymphedema 457.1 ; Hyperlipidemia 272.4 ; Essential hypertension, benign 401.1 and Numbness of toes 782.0 [facility] [address], [place] [address]- 7895 Nov, Episodic mood disorder 296.90 [facility] [address], [place] [address]- 3384 Oct, [facility] [address], [place] [address]- 5079 Oct, [facility] [address], [place] [address]- 6881 Oct, [facility] [id number] [address]- 3620 Oct, [facility] [address], [place] [address]- 8144 Oct, [facility] [address], [place] [address]- 5531 Oct, 2014 [facility] [address] [facility] [id number] [place] [address]- 6299 Oct, 2014 [facility] [address] [facility] [id number] 6005 Oct, 2014 [facility] [address] [facility] [id number], [place] [address]- 2093 Oct, Episodic mood disorder 296.90 [facility] [address] [facility] [id number], [place] [address]- 5587 30 Sep, 2014 [facility] [address] [facility] [id number], [place] [address]- 8375 Sep, [facility] [address] [facility] [id number], [place] [address]- 6451 Sep, [facility] [id number] [address]- 3928 Sep, [facility] [address] [facility] [id number], [place] [address]- 5918 Sep, [facility] [address] [facility] [id number], [place] [address]- 2980 Sep, Episodic mood disorder 296.90 [facility] [address] [facility] [id number], [place] [address]- 6448 Sep, Unspecified episodic mood disorder 296.90 [facility] [address] [facility] [id number], [place] [address]- 0694 Sep, [facility] [address] [facility] [id number], [place] [address]- 6462 Sep, [facility] [address] [facility] [id number], [place] [address]- 0623 16 Sep, 2014 Episodic mood disorder 296.90 [facility] [address] [facility] [id number], [place] [address]- 5212 15 Sep, 2014 [facility] [address], [place] [address]- 4217 Sep, [facility] [id number] [address]- 3434 Sep, [facility] [id number] [place] [address] 36579- 0774 Sep, Hematemesis 578.0 and Vomiting 787.03 [facility] [id number] [place] [address] 04834- 9593 Sep, Episodic mood disorder 296.90 [facility] [id number] [place] [address] 29739- 1345 Sep, [facility] [id number] [place] [address] 64393- 0083 Sep, [facility] [id number] [place] [address] 19442- 7746 Sep, Diabetes mellitus without mention of complication, type II or unspecified type, not stated as uncontrolled 250.00 and Other chronic pain 338.29 [facility] [address], [place] [address]- 3075 Sep, Episodic mood disorder 296.90 [facility] [id number] [place] [address] 03194- 8217 Sep, [facility] [address], [place] [address]- 0891 Sep, Episodic mood disorder 296.90 [facility] [address], [place] [address]- 3215 Sep, [facility] [id number] [place] [address] 16610- 8305 August, [facility] [id number] [place] [address] 88564- 3464 August, [facility] [address], [place] [address]- 9950 August, Episodic mood disorder 296.90 [facility] [address] [id number] [place] [address]- 8155 August, [facility] [address] [place] [address]- 1583 August, Unspecified episodic mood disorder 296.90 [facility] [address] [place] [address]- 0673 August, Vomiting 787.03 [facility] [address] [facility] [id number], [place] [address]- 1702 August, [facility] [id number] [place] [address]- 1872 August, [facility] [id number] [place] [address]- 9474 August, [facility] [address], [place] [address]- 2671 August, [facility] [address] [place] [address]- 2181 August, [facility] [address] [place] [address]- 1751 Jul, [facility] [address] [place] [address]- 5508 Jul, [facility] [address], [place] [address]- 2015 Jul, [facility] [id number], [place] [address]- 8681 Jun, [facility] [id number] [place] [address]- 0375 Jun, [facility] [id number] [place] [address]- 0830 Jun, [facility] [id number] [place] [address]- 4083 Jun, [facility] [place] [facility] [address] [facility] [id number] [place] [address]- 7527 30 Jun, 2014 [facility] [place] [facility] [address] [id number] [place] [address]- 1746 30 Jun, 2014 [facility] [place] [facility] [address] [id number] [place] [address]- 8256 Jun, [facility] [place] [facility] [address] [id number] [place] [address] Jun, [facility] [place] [facility] [address] [id number] [place] [address] Jun, [facility] [place] [facility] [address] [id number] [place] [address] Jun, [facility] [place] [facility] [address] [id number] [place] [address] Jun, [facility] [place] [facility] [address] [id number] [place] [address] Jun, [facility] [place] [facility] [address] [id number] [place] [address] Jun, [facility] [place] [facility] [address] [id number] [place] [address] Jun, [facility] [place] [facility] [address] [id number] [place] [address] Jun, [facility] [place] [facility] [address] [id number] [place] [address] Jun, [facility] [place] [facility] [address] [id number] [place] [address] Jun, [facility] [place] [facility] [address] [id number] [place] [address] Jun, [facility] [place] [facility] [address] [id number] [place] [address] Jun, [facility] [place] [facility] [address] [id number] [place] [address] Jun, [facility] [place] [facility] [address] [id number] [place] [address] 21 Jun, 2014 [facility] [place] [facility] [address] [id number] [place] [address] 20 Jun, 2014 [facility] [place] [facility] [address] [id number] [place] [address] 20 Jun, 2014 [facility] [place] [facility] [address] [id number] [place] [address] 20 Jun, 2014 [facility] [place] [facility] [address] [id number] [place] [address] 20 Jun, 2014 [facility] [place] [facility] [address] [id number] [place] [address] 19 Jun, 2014 [facility] [place] [facility] [address] [id number] [place] [address] 19 Jun, 2014 [facility] [place] [facility] [address] [id number] [place] [address] 18 Jun, 2014 [facility] [place] [facility] [address] [id number] [place] [address] 18 Jun, 2014 [facility] [place] [facility] [address] [id number] [place] [address] 17 Jun, 2014 [facility] [place] [facility] [address] [id number] [place] [address] 17 Jun, 2014 [facility] [place] [facility] [address] [id number] [place] [address] 16 Jun, 2014 [facility] [place] [facility] [address] [id number] [place] [address] 16 Jun, 2014 [facility] [place] [facility] [address] [id number] [place] [address] 16 Jun, 2014 [facility] [place] [facility] [address] [id number] [place] [address] 16 Jun, 2014 [facility] [place] [facility] [address] [id number] [place] [address] 16 Jun, 2014 [facility] [place] [facility] [address] [id number] [place] [address] 16 Jun, 2014 [facility] [place] [facility] [address] [id number] [place] [address] Jun, 2014 [facility] [place] [facility] [address] [id number] [place] [address] 8487 Jun, 2014 [facility] [place] [facility] [address] [id number] [place] [address]- 8265 Jun, 2014 [facility] [place] [facility] [address] [id number] [place] [address] Jun, [facility] [place] [facility] [address] [id number] [place] [address]- 1482 Jun, 2014 [facility] [place] [facility] [address] [id number] [place] [address]- 0606 Jun, 2014 [facility] [place] [facility] [address] [id number] [place] [address]- 4397 Jun, 2014 [facility] [place] [facility] [address] [id number] [place] [address] 1080 Jun, 2014 [facility] [place] [facility] [address] [id number] [place] [address]- 3584 Jun, 2014 [facility] [place] [facility] [address] [id number] [place] [address]- 1133 Jun, 2014 [facility] [place] [facility] [address] [id number] [place] [address]- 8298 Jun, 2014 [facility] [place] [facility] [address] [id number] [place] [address]- 5934 Jun, 2014 [facility] [place] [facility] [address] [id number] [place] [address]- 1066 Jun, 2014 [facility] [place] [facility] [address] [id number] [place] [address]- 9332 Jun, 2014 [facility] [place] [facility] [address] [id number] [place] [address]- 7854 Jun, [facility] [place] [facility] [address] [id number] [place] [address]- 8871 Jun, [facility] [place] [facility] [address] [id number] [place] [address]- 4825 Jun, [facility] [place] [facility] [address] [id number] [place] [address]- 5588 Jun, [facility] [place] [facility] [address] [id number] [place] [address]- 1600 Jun, [facility] [place] [facility] [address] [id number] [place] [address]- 3637 Jun, [facility] [place] [facility] [address] [facility] [id number] [place] [address]- 3556 May, [facility] [place] [facility] [address] [id number] [place] [address]- 0896 May, [facility] [place] [facility] [address] [id number] [place] [address]- 8892 May, [facility] [place] [facility] [address] [facility] [id number] [place] [address]- 8931 May, [facility] [place] [facility] [address] [facility] [id number] [place] [address]- 8211 May, [facility] [place] [facility] [address] [id number] [place] [address]- 7768 May, 2014 [facility] [place] [facility] [address] [id number] [place] [address]- 8909 May, [facility] [place] [facility] [address] [id number] [place] [address]- 9318 May, 2014 [facility] [place] [facility] [address] [facility] [id number] [place] [address]- 7852 May, 2014 [facility] [place] [facility] [address] [facility] [id number] [place] [address]- 2600 20 May, 2014 [facility] [place] [facility] [address] [facility] [id number] [place] [address]- 0500 18 May, 2014 [facility] [place] [facility] [address] [facility] [id number] [place] [address]- 4566 18 May, 2014 [facility] [place] [facility] [address] [facility] [id number] [place] [address]- 0294 13 May, 2014 [facility] [place] [facility] [address] [facility] [id number] [place] [address]- 2166 13 May, 2014 [facility] [place] [facility] [address] [facility] [id number] [place] [address]- 3112 11 May, 2014 [facility] [place] [facility] [address] [id number] [place] [address]- 2635 May, 2014 [facility] [place] [facility] [address] [id number] [place] [address] 5062 May, 2014 [facility] [place] [facility] [address] [facility] [id number] [place] [address]- 7622 May, 2014 [facility] [place] [facility] [address] [id number] [place] [address]- 6680 May, 2014 [facility] [place] [facility] [address] [id number] [address] May, 2014 [facility] [place] [facility] [address] [facility] [id number], [place] [address]- 0000 May, 2014 [facility] [place] [facility] [address] [facility] [id number] [place] [address]- 3168 May, 2014 [facility] [place] [facility] [address] [facility] [id number] [place] [address]- 0209 May, 2014 [facility] [place] [facility] [address] [facility] [id number], [place] [address]- 2129 May, 2014 [facility] [place] [facility] [id number], [place] [address] 1228 May, [facility] [place] [facility] [address] [id number] [place] [address]- 0230 May, [facility] [place] [facility] [address] [id number] [place] [address]- 3556 May, [facility] [place] [facility] [address] [id number] [place] [address]- 1138 Apr, [facility] [place] [facility] [address] [id number] [place] [address]- 8947 Apr, [facility] [place] [facility] [address] [id number] [place] [address]- 1640 Apr, [facility] [place] [facility] [address] [id number] [place] [address]- 1832 Apr, [facility] [place] [facility] [address] [id number], [place] [address]- 2097 Apr, [facility] [place] [facility] [address] [id number] [place] [address]- 9246 Apr, [facility] [place] [facility] [address] [id number] [place] [address]- 1411 Apr, [facility] [place] [facility] [address] [id number] [place] [address]- 7905 Apr, [facility] [place] [facility] [address] [id number], [place] [address]- 7175 Apr, [facility] [place] [facility] [address] [id number], [place] [address]- 8036 Apr, [facility] [place] [facility] [address] [id number], [place] [address]- 9319 Apr, [facility] [place] [facility] [address] [id number], [place] [address]- 6806 Apr, [facility] [place] [facility] [address] [id number], [place] [address]- 6051 Apr, [facility] [place] [facility] [address] [id number] [place] [address]- 2746 Apr, [facility] [place] [facility] [address] [id number] [place] [address]- 2419 Apr, [facility] [place] [facility] [address] [id number] [place] [address]- 9420 Apr, [facility] [place] [facility] [address] [id number] [place] [address]- 9985 Apr, [facility] [place] [facility] [address] [id number] [place] [address]- 9695 Apr, [facility] [place] [facility] [address] [id number] [place] [address]- 6452 Apr, [facility] [place] [facility] [address] [id number] [place] [address]- 0188 Apr, [facility] [place] [facility] [address] [id number] [place] [address]- 0619 Mar, [facility] [place] [facility] [address] [id number] [place] [address]- 6789 Mar, [facility] [place] [facility] [address] [id number] [place] [address]- 9928 Mar, [facility] [place] [facility] [address] [id number] [place] [address]- 0776 Mar, [facility] [place] [facility] [address] [id number] [place] [address]- 2876 Mar, [facility] [place] [facility] [address] [id number] [place] [address]- 6628 Mar, [facility] [place] [facility] [address] [id number] [place] [address]- 9415 Mar, [facility] [place] [facility] [address] [id number] [place] [address]- 2996 18 Mar, 2014 [facility] [place] [facility] [address] [id number] [place] [address]- 9997 15 Mar, 2014 [facility] [place] [facility] [address] [id number] [place] [address]- 1875 15 Mar, 2014 [facility] [place] [facility] [address] [id number] [place] [address]- 6391 15 Mar, 2014 [facility] [place] [facility] [address] [id number] [place] [address]- 6688 Mar, [facility] [place] [facility] [address] [id number] [place] [address]- 8601 Mar, [facility] [place] [facility] [address] [id number] [place] [address]- 5049 Mar, [facility] [place] [facility] [address] [id number] [place] [address]- 4754 Mar, [facility] [place] [facility] [address] [id number] [place] [address]- 2072 Mar, [facility] [place] [facility] [address] [id number] [place] [address]- 1415 Feb, [facility] [place] [facility] [address] [id number] [place] [address]- 6070 Feb, [facility] [place] [facility] [address] [id number] [place] [address]- 0184 Feb, [facility] [place] [facility] [address] [id number], [place] [address]- 1648 Feb, [facility] [place] [facility] [address] [id number], [place] [address]- 1971 Feb, [facility] [place] [facility] [address] [id number] [place] [address]- 7685 Feb, [facility] [place] [facility] [address] [id number] [place] [address]- 6822 Feb, [facility] [place] [facility] [address] [id number] [place] [address]- 9200 18 Feb, 2014 [facility] [place] [facility] [address] [id number] [place] [address]- 1249 18 Feb, 2014 [facility] [place] [facility] [address] [id number] [place] [address]- 8430 17 Feb, 2014 [facility] [place] [facility] [address] [id number] [place] [address]- 7330 17 Feb, 2014 [facility] [place] [facility] [address] [id number] [place] [address]- 4623 17 Feb, 2014 [facility] [place] [facility] [address] [id number] [place] [address]- 5140 17 Feb, 2014 [facility] [place] [facility] [address] [id number] [place] [address]- 0633 14 Feb, 2014 [facility] [place] [facility] [address] [id number] [place] [address]- 4177 Feb, [facility] [place] [facility] [address] [id number] [place] [address]- 0894 Feb, [facility] [place] [facility] [address] [id number] [place] [address]- 3770 14 Feb, 2014 [facility] [place] [facility] [address] [id number] [place] [address]- 1306 Feb, [facility] [place] [facility] [address] [facility] [id number] [place] [address]- 9804 Feb, [facility] [place] [facility] [address] [id number] [place] [address]- 7888 Feb, [facility] [place] [facility] [address] [id number] [place] [address]- 4570 Feb, [facility] [place] [facility] [address] [id number] [place] [address]- 9270 Jan, [facility] [place] [facility] [address] [id number] [place] [address]- 9806 Jan, [facility] [place] [facility] [address] [id number] [place] [address]- 1798 Jan, [facility] [place] [facility] [address] [id number] [place] [address]- 5032 30 Jan, 2014 [facility] [place] [facility] [address] [id number] [place] [address]- 6122 Jan, [facility] [place] [facility] [address] [id number] [place] [address]- 9588 Jan, [facility] [place] [facility] [address] [id number] [place] [address]- 2307 Jan, [facility] [place] [facility] [address] [id number] [place] [address]- 6244 Jan, [facility] [place] [facility] [address] [id number] [place] [address]- 2149 Jan, [facility] [place] [facility] [address] [id number] [place] [address]- 4112 Jan, [facility] [place] [facility] [address] [id number] [place] [address]- 0542 Jan, [facility] [place] [facility] [address] [id number] [place] [address]- 0115 Jan, [facility] [place] [facility] [address] [id number] [place] [address]- 9297 17 Jan, 2014 [facility] [place] [facility] [address] [id number] [place] [address]- 0903 17 Jan, 2014 [facility] [place] [facility] [address] [id number] [place] [address]- 3890 15 Jan, 2014 [facility] [place] [facility] [address] [id number] [place] [address]- 6059 15 Jan, 2014 [facility] [place] [facility] [address] [id number] [place] [address]- 6571 14 Jan, 2014 [facility] [place] [facility] [address] [id number] [place] [address]- 2826 14 Jan, 2014 [facility] [place] [facility] [address] [id number] [place] [address]- 6178 Jan, [facility] [place] [facility] [address] [id number] [place] [address]- 5449 Jan, [facility] [place] [facility] [address] [id number] [place] [address]- 9193 Jan, [facility] [place] [facility] [address] [id number] [place] [address]- 6339 Jan, [facility] [place] [facility] [address] [id number] [place] [address]- 2455 Jan, [facility] [place] [facility] [address] [id number] [place] [address]- 0608 Jan, [facility] [place] [facility] [address] [id number] [place] [address]- 2378 Jan, [facility] [place] [facility] [address] [id number] [place] [address]- 3138 25 Dec, 2013 [facility] [place] [facility] [address] [id number] [place] [address]- 6135 25 Dec, 2013 [facility] [place] [facility] [address] [id number] [place] [address]- 4678 23 Dec, 2013 [facility] [place] [facility] [address] [id number] [place] [address]- 8831 23 Dec, 2013 [facility] [place] [facility] [address] [id number] [place] [address]- 6611 19 Dec, 2013 [facility] [place] [facility] [address] [id number], [place] [address]- 9060 19 Dec, 2013 [facility] [place] [facility] [address] [id number] [place] [address]- 2543 17 Dec, 2013 [facility] [place] [facility] [address] [id number] [place] [address]- 4078 17 Dec, 2013 [facility] [place] [facility] [address] [id number] [place] [address]- 4517 09 Dec, 2013 [facility] [place] [facility] [address] [id number] [place] [address]- 5107 09 Sep, 2013 [facility] [place] [facility] [address] [id number] [place] [address]- 1524 08 Sep, 2013 [facility] [place] [facility] [address] [id number] [place] [address]- 3447 08 Dec, 2013 [facility] [place] [facility] [address] [id number] [place] [address]- 0847 04 Sep, 2013 [facility] [place] [facility] [address] [id number] [place] [address]- 1473 04 Dec, 2013 [facility] [place] [facility] [address] [id number] [place] [address]- 3135 Dec, 2013 [facility] [place] [facility] [address] [id number] [place] [address]- 6226 Dec, 2013 [facility] [place] [facility] [address] [id number] [place] [address]- 0966 Dec, 2013 [facility] [place] [facility] [address] [id number] [place] [address]- 1256 Dec, 2013 [facility] [place] [facility] [address] [id number] [place] [address]- 2790 Nov, [facility] [place] [facility] [address] [id number] [place] [address]- 7522 Nov, [facility] [place] [facility] [address] [id number] [place] [address]- 2548 Nov, [facility] [place] [facility] [address] [id number] [place] [address]- 7868 Nov, [facility] [place] [facility] [address] [id number] [place] [address]- 6347 Nov, [facility] [place] [facility] [address] [id number] [place] [address]- 7411 Nov, [facility] [place] [facility] [address] [id number] [place] [address]- 8093 Nov, [facility] [place] [facility] [address] [id number] [place] [address]- 1797 Nov, [facility] [place] [facility] [address] [id number] [place] [address]- 3848 Nov, [facility] [place] [facility] [address] [id number] [place] [address]- 7515 Nov, [facility] [place] [facility] [address] [id number] [place] [address]- 3671 Nov, [facility] [place] [facility] [address] [id number] [place] [address]- 5359 Nov, [facility] [place] [facility] [address] [id number] [place] [address]- 7374 Oct, [facility] [place] [facility] [address] [id number] [place] [address]- 1754 Oct, [facility] [place] [facility] [address] [id number] [place] [address]- 8714 Oct, [facility] [place] [facility] [address] [id number] [place] [address]- 4410 Oct, [facility] [place] [facility] [address] [id number] [place] [address]- 9929 Oct, [facility] [place] [facility] [address] [id number] [place] [address]- 2767 Oct, [facility] [place] [facility] [address] [id number] [place] [address]- 1913 Oct, [facility] [place] [facility] [address] [id number] [place] [address]- 1987 Oct, [facility] [place] [facility] [address] [id number] [place] [address]- 3047 Oct, [facility] [place] [facility] [address] [id number] [place] [address]- 6327 Oct, [facility] [place] [facility] [address] [id number] [place] [address]- 7420 16 Oct, 2013 [facility] [place] [facility] [address] [id number] [place] [address]- 4906 16 Oct, 2013 [facility] [place] [facility] [address] [id number] [place] [address]- 7077 14 Oct, 2013 [facility] [place] [facility] [address] [id number] [place] [address]- 2110 14 Oct, 2013 [facility] [place] [facility] [address] [id number] [place] [address]- 4755 13 Oct, 2013 [facility] [place] [facility] [address] [id number] [place] [address]- 7927 13 Oct, 2013 [facility] [place] [facility] [address] [id number] [place] [address]- 0220 Oct, [facility] [place] [facility] [address] [id number] [place] [address]- 5452 27 Sep, 2013 [facility] [place] [facility] [address] [id number] [place] [address]- 7447 27 Sep, 2013 [facility] [place] [facility] [address] [id number] [place] [address]- 7318 20 Sep, 2013 [facility] [place] [facility] [address] [id number] [place] [address]- 1850 20 Sep, 2013 [facility] [place] [facility] [address] [id number] [place] [address]- 0069 18 Sep, 2013 [facility] [place] [facility] [address] [id number] [place] [address]- 5176 18 Sep, 2013 [facility] [place] [facility] [address] [id number] [place] [address]- 5891 17 Sep, 2013 [facility] [place] [facility] [address] [id number] [place] [address]- 5847 17 Sep, 2013 [facility] [place] [facility] [address] [id number] [place] [address]- 1239 11 Sep, 2013 [facility] [place] [facility] [address] [id number] [place] [address]- 1876 Sep, [facility] [place] [facility] [address] [id number] [place] [address]- 2556 Sep, [facility] [place] [facility] [address] [id number] [place] [address]- 1869 Sep, [facility] [place] [facility] [address] [id number] [place] [address]- 0762 Sep, [facility] [place] [facility] [address] [id number] [place] [address]- 2141 Sep, [facility] [place] [facility] [address] [id number] [place] [address] Sep, [facility] [place] [facility] [address] [id number] [place] [address] Sep, [facility] [place] [facility] [address] [id number] [place] [address] Sep, [facility] [place] [facility] [address] [id number] [place] [address] Sep, [facility] [place] [facility] [address] [id number] [place] [address] Sep, [facility] [place] [facility] [address] [id number] [place] [address] 47[address] Sep, [facility] [place] [facility] [address] [id number] [place] [address] 15[address] Sep, [facility] [place] [facility] [address] [id number] [place] [address] Sep, [facility] [place] [facility] [address] [id number] [place] [address] August, [facility] [place] [facility] [address] [id number] [place] [address] August, [facility] [place] [facility] [address] [id number] [place] [address] August, [facility] [address] [id number] [place] [address] August, [facility] [place] [facility] [address] [id number] [place] [address] August, [facility] [place] [facility] [address] [id number] [place] [address] August, [facility] [place] [facility] [address] [id number] [place] [address] August, [facility] [place] [facility] [address] [id number] [place] [address] August, [facility] [place] [facility] [address] [id number] [place] [address] 118[address] August, [facility] [place] [facility] [address] [id number] [place] [address] August, [facility] [place] [facility] [address] [id number] [place] [address] August, [facility] [place] [facility] [address] [id number] [place] [address] Jul, [facility] [place] [facility] [address] [id number] [place] [address] 70[address] Jul, [facility] [place] [facility] [address] [id number] [place] [address] Jul, [facility] [place] [facility] [address] [id number] [place] [address] Jul, [facility] [place] [facility] [address] [id number] [place] [address] Jul, [facility] [place] [facility] [address] [id number] [place] [address] 49[address] Jul, [facility] [place] [facility] [address] [id number] [place] [address] 24[address] Jul, [facility] [place] [facility] [address] [id number] [place] [address] Jul, [facility] [place] [facility] [address] [id number] [place] [address] 18 Jul, 2013 [facility] [place] [facility] [address] [id number] [place] [address]- [address] 18 Jul, 2013 [facility] [place] [facility] [address] [id number] [place] [address]- [address] 16 Jul, 2013 [facility] [place] [facility] [address] [id number] [place] [address] Jul, [facility] [place] [facility] [address] [id number] [place] [address] 14 Jul, 2013 [facility] [place] [facility] [address] [id number] [place] [address]- [address] Jul, [facility] [place] [facility] [address] [id number] [place] [address] 77[address] Jul, [facility] [place] [facility] [address] [id number] [place] [address] 1360 Jul, [facility] [place] [facility] [address] [id number] [place] [address] Jul, [facility] [place] [facility] [address] [id number] [place] [address]- 9184 Jul, [facility] [place] [facility] [address] [id number] [place] [address]676 Jul, [facility] [place] [facility] [address] [id number] [place] [address]- 57[address] Jul, [facility] [place] [facility] [address] [id number] [place] [address]- [address] Jul, [facility] [place] [facility] [address] [id number] [place] [address]- [address] Jul, [facility] [place] [facility] [address] [id number] [place] [address] 38[address] Jul, [facility] [place] [facility] [address] [id number] [place] [address] 1942 Jun, [facility] [place] [facility] [address] [id number] [place] [address] Jun, [facility] [place] [facility] [address] [id number] [place] [address]- [address] Jun, [facility] [place] [facility] [address] [id number] [place] [address]- [address] Jun, [facility] [place] [facility] [address] [id number] [place] [address]- 29[address] Jun, [facility] [place] [facility] [address] [id number] [place] [address] Jun, [facility] [place] [facility] [address] [id number] [place] [address]- 4985 Jun, [facility] [place] [facility] [address] [id number] [place] [address]- [address]192 Jun, [facility] [place] [facility] [address] [id number] [place] [address]- 9229 Jun, [facility] [place] [facility] [address] [id number] [place] [address]- 7009 Jun, [facility] [place] [facility] [address] [id number] [place] [address]- 2017 Jun, [facility] [place] [facility] [address] [id number] [place] [address]- 2947 Jun, [facility] [place] [facility] [address] [id number] [place] [address]- 96[address] May, [facility] [place] [facility] [address] [id number] [place] [address]100 May, [facility] [place] [facility] [address] [id number] [place] [address]- 6187 Apr, [facility] [place] [facility] [address] [id number], [place] [address]- [address] Apr, [facility] [address] [id number] [place] [address]- 8078 Apr, [facility] [place] [facility] [address] [id number] [place] [address]- 68[address] Apr, [facility] [place] [facility] [address] [id number] [place] [address]- 0906 Apr, [facility] [place] [facility] [address] [id number] [place] [address]- 8179 Apr, [facility] [place] [facility] [address] [id number] [place] [address]- [address]70 Apr, [facility] [place] [facility] [address] [id number] [place] [address]- 5597 Apr, [facility] [place] [facility] [address] [id number] [place] [address]- 6048 Apr, [facility] [place] [facility] [address] [id number] [place] [address]- [address]245 Apr, [facility] [place] [facility] [address] [id number] [place] [address]- 7633 Apr, [facility] [place] [facility] [address] [id number] [place] [address]- [address]562 Mar, [facility] [place] [facility] [address] [id number] [place] [address]- 9861 Mar, [facility] [place] [facility] [address] [id number] [place] [address]- 8255 Mar, [facility] [place] [facility] [address] [id number] [place] [address]- 3862 Mar, [facility] [place] [facility] [address] [id number] [place] [address]- 9017 Feb, [facility] [place] [facility] [address] [id number] [place] [address]- 4935 Feb, [facility] [place] [facility] [address] [id number] [place] [address]- 3697 Feb, [facility] [place] [facility] [address] [id number] [place] [address]- 4924 Feb, [facility] [place] [facility] [address] [id number] [place] [address]- 4423 Feb, [facility] [place] [facility] [address] [id number] [place] [address]- 7400 Feb, [facility] [place] [facility] [address] [id number] [place] [address] Feb, [facility] [place] [facility] [address] [id number] [place] [address] Feb, [facility] [place] [facility] [address] [id number] [place] [address] Feb, [facility] [place] [facility] [address] [id number] [place] [address] Feb, [facility] [place] [facility] [address] [id number] [place] [address] Feb, [facility] [place] [facility] [address] [id number] [place] [address] 5[address] Jan, [facility] [place] [facility] [address] [id number] [place] [address] 7212 Jan, [facility] [place] [facility] [address] [id number] [place] [address] 5069 Jan, [facility] [place] [facility] [address] [id number] [place] [address]- 1422 Jan, [facility] [place] [facility] [address] [id number] [place] [address] Jan, [facility] [place] [facility] [address] [id number] [place] [address] Jan, [facility] [place] [facility] [address] [id number] [place] [address] Jan, [facility] [place] [facility] [address] [id number] [place] [address] 3260 02 Jan, 2013 [facility] [place] [facility] [address] [id number] [place] [address]- 4052 30 Dec, 2012 [facility] [place] [facility] [address] [id number] [place] [address]- 2126 25 Dec, 2012 [facility] [place] [facility] [address] [id number] [place] [address]- 5573 18 Dec, 2012 [facility] [place] [facility] [address] [id number] [place] [address]- 0750 17 Dec, 2012 [facility] [place] [facility] [address] [id number] [place] [address]- 8519 17 Dec, 2012 [facility] [place] [facility] [address] [id number] [place] [address]- 1835 16 Dec, 2012 [facility] [place] [facility] [address] [id number] [place] [address] 0979 13 Dec, 2012 [facility] [place] [facility] [address] [id number] [place] [address]- 3476 11 Dec, 2012 [facility] [place] [facility] [address] [id number] [place] [address]- 4134 05 Dec, 2012 [facility] [place] [facility] [address] [id number] [place] [address] 3224 04 Dec, 2012 [facility] [place] [facility] [address] [id number], [place] [address] 30 Nov, 2012 [facility] [place] [facility] [address] [id number] [place] [address]- 9658 29 Nov, 2012 [facility] [place] [facility] [address] [id number] [place] [address]- 4104 Nov, [facility] [place] [facility] [address] [id number] [place] [address]- 2336 16 Nov, 2012 [facility] [place] [facility] [address] [id number] [place] [address]- 9850 14 Nov, 2012 [facility] [place] [facility] [address] [id number] [place] [address]- 8085 12 Nov, 2012 [facility] [place] [facility] [address] [id number] [place] [address]- 4021 05 Nov, 2012 [facility] [place] [facility] [address] [id number] [place] [address]- 9158 29 Oct, 2012 [facility] [place] [facility] [address] [id number] [place] [address] 7462 Oct, [facility] [place] [facility] [address] [id number] [place] [address]- 2477 24 Oct, 2012 [facility] [place] [facility] [address] [id number] [place] [address]- 0965 Oct, [facility] [place] [facility] [address] [id number] [place] [address] 1403 15 Oct, 2012 [facility] [place] [facility] [address] [id number] [place] [address] 3904 Oct, [facility] [place] [facility] [address] [id number] [place] [address]- 1483 Sep, [facility] [place] [facility] [address] [id number] [place] [address]- 8539 28 Sep, 2012 [facility] [place] [facility] [address] [id number] [place] [address] 1958 27 Sep, 2012 [facility] [place] [facility] [address] [id number] [place] [address] 2789 14 Sep, 2012 [facility] [place] [facility] [address] [id number] [place] [address] 8482 13 Sep, 2012 [facility] [place] [facility] [address] [id number] [place] [address]- 4594 10 Sep, 2012 [facility] [place] [facility] [address] [id number] [place] [address]- 4922 07 Sep, 2012 [facility] [place] [facility] [address] [id number] [place] [address]- 9954 Sep, [facility] [address] [id number] [place] [address] 0382 Sep, [facility] [address] [id number] [place] [address] 2086 August, [facility] [address] [id number] [place] [address]- 4055 August, [facility] [address] [id number] [place] [address]- 3197 August, [facility] [address] [id number] [place] [address]- 9939 August, [facility] [address] [id number] [place] [address]- 4215 August, [facility] [address] [id number] [place] [address]- 3202 August, [facility] [address] [id number] [place] [address]- 1262 August, [facility] [address] [id number] [place] [address]- 2067 August, [facility] [address] [id number] [place] [address] 6758 Jul, [facility] [address] [id number] [place] [address] 4331 Jul, [facility] [address] [place] [place] [id number] Jul [facility] [address] [id number] [place] [address] 4746 Jun, [facility] [address] [id number] [place] [address] 5906 Jun, [facility] [address] [id number] [place] [address] 6860 Jun, [facility] [address] [id number] [place] [address] 8514 Jun, [facility] [place] [facility] [address] [id number] [place] [address] 3108 Jun, [facility] [address] [id number] [place] [address]- 9870 Jun, [facility] [place] [facility] [address] [id number] [place] [address] 8652 May, [facility] [address] [id number] [place] [address] 4973 May, [facility] [place] [facility] [address] [id number] [place] [address]- 5757 May, [facility] [address] [id number] [place] [address]- 4921 May, [facility] [address] [id number] [place] [address]- 6294 May, [facility] [address] [id number] [place] [address]- 0687 Apr, [facility] [address] [id number] [place] [address]- 6159 Apr, [facility] [address] [id number], [place] [address]- 4546 Apr, [facility] [place] [facility] [address] [id number], [place] [address] 5807 Apr, [facility] [place] [facility] [address] [id number] [place] [address]- 7022 Apr, [facility] [place] [facility] [address] [id number], [place] [address]- 6764 Apr, [facility] [place] [facility] [address] [id number] [place] [address]- 6040 Mar, [facility] [place] [facility] [address] [id number] [place] [address]- 8150 20 Mar, 2012 [facility] [place] [facility] [address] [id number] [place] [address]- 7976 20 Mar, 2012 [facility] [place] [facility] [address] [id number] [place] [address]- 7586 19 Mar, 2012 [facility] [place] [facility] [address] [id number] [place] [address]- 1726 19 Mar, 2012 [facility] [place] [facility] [address] [id number] [place] [address]- 0076 18 Mar, 2012 [facility] [place] [facility] [address] [id number] [place] [address]- 9968 18 Mar, 2012 [facility] [place] [facility] [address] [id number] [place] [address]- 4146 10 Mar, 2012 [facility] [place] [facility] [address] [id number] [place] [address]- 2811 10 Mar, 2012 [facility] [place] [facility] [address] [id number] [place] [address]- 5906 05 Mar, 2012 [facility] [place] [facility] [address] [id number] [place] [address]- 6376 05 Mar, 2012 [facility] [place] [facility] [address] [id number] [place] [address]- 7267 28 Feb, 2012 [facility] [place] [facility] [address] [id number] [place] [address]- 6376 28 Feb, 2012 [facility] [place] [facility] [address] [id number] [place] [address]- 2543 Feb, [facility] [place] [facility] [address] [id number] [place] [address]- 1206 Feb, [facility] [place] [facility] [address] [id number] [place] [address]- 9966 Feb, [facility] [place] [facility] [address] [id number] [place] [address]- 1543 16 Feb, 2012 [facility] [place] [facility] [address] [id number] [place] [address]- 0745 16 Feb, 2012 [facility] [place] [facility] [address] [id number] [place] [address]- 6472 Feb, [facility] [place] [facility] [address] [id number] [place] [address]- 5437 Feb, [facility] [place] [facility] [address] [id number] [place] [address]- 4525 Feb, [facility] [place] [facility] [address] [id number] [place] [address]- 3196 Feb, [facility] [place] [facility] [address] [id number] [place] [address]- 8652 Jan, [facility] [place] [facility] [address] [id number] [place] [address]- 7912 Jan, [facility] [place] [facility] [address] [id number] [place] [address]- 6555 Jan, [facility] [place] [facility] [address] [id number] [place] [address]- 0639 Jan, [facility] [place] [facility] [address] [id number] [place] [address]- 6084 Jan, [facility] [place] [facility] [address] [id number] [place] [address]- 7582 Jan, [facility] [place] [facility] [address] [id number] [place] [address]- 5073 09 Jan, 2012 [facility] [place] [facility] [address] [id number] [place] [address]- 6756 24 Dec, 2011 [facility] [place] [facility] [address] [id number] [place] [address]- 3457 17 Sep2011 [facility] [place] [facility] [address] [id number] [place] [address]- 5594 13 Sep2011 [facility] [place] [facility] [address] [id number] [place] [address]- 2404 Dec, [facility] [place] [facility] [address] [id number] [place] [address]- 1487 Nov, [facility] [place] [facility] [address] [id number] [place] [address]- 4080 Nov, [facility] [place] [facility] [address] [id number] [place] [address]- 2666 Nov, [facility] [place] [facility] [address] [id number] [place] [address]- 1406 Nov, [facility] [place] [facility] [address] [id number] [place] [address]- 5555 Nov, [facility] [place] [facility] [address] [id number] [place] [address]- 1780 Nov, [facility] [place] [facility] [address] [id number] [place] [address]- 8675 Nov, [facility] [place] [facility] [address] [id number] [place] [address]- 6402 Nov, [facility] [place] [facility] [address] [id number] [place] [address]- 2449 Nov, [facility] [place] [facility] [address] [id number] [place] [address]- 6106 Nov, [facility] [place] [facility] [address] [id number] [place] [address]- 7626 Nov, [facility] [place] [facility] [address] [id number] [place] [address]- 6035 Nov, [facility] [place] [facility] [address] [id number] [place] [address]- 7909 Nov, [facility] [place] [facility] [address] [id number] [place] [address]- 9150 Oct, [facility] [place] [facility] [address] [id number] [place] [address]- 0693 Oct, [facility] [place] [facility] [address] [id number] [place] [address]- 1820 Oct, [facility] [address] [id number] [place] [address]- 5507 Oct, [facility] [place] [facility] [address] [id number] [place] [address]- 1846 Oct, [facility] [place] [facility] [address] [id number] [place] [address]- 9602 Oct, [facility] [place] [facility] [address] [id number] [place] [address]- 3578 Oct, [facility] [place] [facility] [address] [id number] [place] [address]- 1080 Oct, [facility] [place] [facility] [address] [id number] [place] [address]- 9538 Oct, [facility] [place] [facility] [address] [id number] [place] [address]- 6121 Sep, [facility] [place] [facility] [address] [id number] [place] [address]- 9880 Sep, [facility] [place] [facility] [address] [id number] [place] [address]- 9088 Sep, [facility] [place] [facility] [address] [id number] [place] [address]- 8788 Sep, [facility] [place] [facility] [address] [id number] [place] [address]- 7495 Sep, [facility] [place] [facility] [address] [id number] [place] [address]- 6786 Sep, [facility] [place] [facility] [address] [id number] [place] [address]- 2122 Sep, [facility] [place] [facility] [address] [id number] [place] [address]- 7785 Sep, [facility] [place] [facility] [address] [id number] [place] [address]- 0096 August, [facility] [address] [id number], [place] [address] 4568 August, [facility] [address] [id number] 3733 August, [facility] [address] [id number] [address]67 August, [facility] [id number], [place] [address] 9498 August, [facility] [address] [id number], [place] [address] 7531 August, [facility] [id number], [place] [address]- 6961 August, [facility] [id number], [place] [address]- 9701 August, [facility] [id number], [place] [address]- 4799 August, [facility] [id number], [place] [address]- 7198 August, [facility] [address] [id number], [place] [address]- 5599 August, [facility] [address] [id number], [place] [address]- 9559 August, [facility] [address] [id number], [place] [address]- 1177 Oct, IMMUNIZATIONS No Known Immunizations SOCIAL HISTORY Never Assessed REASON FOR VISIT per lab results/referral PLAN OF CARE VITAL SIGNS MEDICATIONS Unknown [...] Surgical History bladder surgery Hospitalization History [facility] for right groin pain 05/2011 Hospitalization History [facility] for wound on buttocks 08/2012 Hospitalization History [facility], hypoxia secondary to pneumonia 12/02-12/09 Hospitalization History Pneumonia, elevated CO2 on Bipap was in ICU 08/2013 Hospitalization History Hypoxia, Exacerbation COPD, Chest pain 09/05/15 Hospitalization History suicidal ideations-[facility] 12/28 Hospitalization History hypoxia--[facility] 02/13/2016 Hospitalization History shortness of breath at june 2016 Hospitalization History Shortness of breath at august 2016 Hospitalization History SOB, chest pain at 12/2016
--- OUTSIDE RECORDS SUMMARY | 2017-11-24 17:26 | XMS REPORT ---
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 [id number], [place] [address]- 9433 Mar, [facility] [address] [facility] [id number] [address]- 8309 Mar, [facility] [address] [facility] [id number] [address]- 7358 Mar, [facility] [address] [facility] [id number], [place] [address]- 8414 Mar, [facility] [id number] [address]- 2150 Feb, Unspecified mood [affective] disorder F39 [facility] [address] [facility] [id number], [place] [address]- 2784 Feb, [facility] [id number], [place] [address]- 7045 Feb, [facility] [address], [place] [address]- 0258 Jan, Unspecified mood [affective] disorder F39 [facility] [id number] [id number] [id number] Jan, Encounter for dental examination Z01.20 [facility] [address], [place] [address]- 6242 Jan, [facility] [address], [place] [address]- 9128 Jan, [facility] [id number], [place] [address]- 7445 Jan, [facility] [address], [place] [address]- 0981 Jan, [facility] [id number] [place] [address] 60075- 4395 Jan, [facility] [address] 53836- 7973 Jan, Abdominal abscess K65.1 and Dental caries K02.9 [facility] [address] 63129- 9819 Jan, [facility] [address] 57157- 9000 30 Dec, 2014 Diabetes with neurological manifestations, type II or unspecified type, not stated as uncontrolled 250.60 ; Essential hypertension, benign 401.1 ; Concussion 850.9 and Skin texture changes 782.8 [facility] [address] 01595- 9587 Dec, [facility] [address] 89015- 7322 Dec, [facility] [id number] [place] [address] 24916- 4345 Dec, [facility] [address] 04034- 6276 Dec, [facility] [id number] [place] [address] 97354- 7784 17 Dec, 2014 Affective disorder 296.90 [facility] [address] 03199- 9351 14 Dec, 2014 [facility] [id number] [place] [address] 75702- 9280 10 Dec, 2014 Affective disorder 296.90 [facility] [address] 57796- 3863 04 Dec, 2014 [facility] [id number] [place] [address] 23035- 2080 Dec, [facility] [address] [place] [address] 2546 Dec, [facility] [address], [place] [address] 2546 Dec, [facility] [id number] [place] [address] 80514 2546 Nov, Affective disorder 296.90 [facility] [id number] [place] [address] 42078 2546 Nov, [facility] [id number] [place] [address] 27427 2546 Nov, Affective disorder 296.90 [facility] [id number] [place] [address] 65504 2546 Nov, Diarrhea 787.91 [facility] [id number] [place] [address] 88873 2546 Nov, [facility] [id number] [place] [address] 55400 2546 Nov, Diarrhea 787.91 [facility] [id number] [place] [address] 34979 2546 Nov, Diarrhea 787.91 and Hyperlipidemia 272.4 [facility] [address], [place] [address] 2546 Nov, Diarrhea 787.91 [facility] [id number] [place] [address] 00630 2546 Nov, Affective disorder 296.90 [facility] [address], [place] [address] 2546 Nov, Affective disorder 296.90 [facility] [id number] [place] [address] 35582 2546 Nov, Affective disorder 296.90 [facility] [address], [place] [address] 2546 Nov, [facility] [id number], [place] [address]- 1911 Nov, [facility] [address], [place] [address]- 6360 Nov, [facility] [id number], [place] [address]- 1180 Nov, Episodic mood disorder 296.90 [facility] [address], [place] [address]- 3107 Nov, [facility] [id number] [place] [address] 57615- 3823 Nov, [facility] [id number] [place] [address] 77150- 2859 Nov, [facility] [id number] [place] [address] 81658- 9192 Nov, [facility] [id number] [place] [address] 38172- 6771 Nov, [facility] [address], [place] [address]- 5922 Nov, Lymphedema 457.1 ; Hyperlipidemia 272.4 ; Essential hypertension, benign 401.1 and Numbness of toes 782.0 [facility] [address], [place] [address]- 8976 Nov, Episodic mood disorder 296.90 [facility] [address], [place] [address]- 2462 Oct, [facility] [id number], [place] [address]- 7570 Oct, [facility] [id number] [address]- 0713 Oct, [facility] [address], [place] [address]- 6256 Oct, [facility] [id number], [place] [address]- 1144 Oct, [facility] [address] [facility] [id number] [place] [address]- 9668 Oct, 2014 [facility] [address] [facility] [id number] [place] [address]- 6006 Oct, 2014 [facility] [address] [facility] [id number] [place] [address]- 6979 Oct, 2014 [facility] [address] [facility] [id number] [place] [address]- 6619 Oct, Episodic mood disorder 296.90 [facility] [address] [facility] [id number] [place] [address]- 1061 30 Sep, 2014 [facility] [address] [facility] [id number], [place] [address]- 7818 Sep, [facility] [id number] [place] [address]- 4070 Sep, [facility] [address] [facility] [id number], [place] [address]- 2860 Sep, [facility] [address] [facility] [id number], [place] [address]- 3583 Sep, [facility] [address] [facility] [id number], [place] [address]- 2617 Sep, Episodic mood disorder 296.90 [facility] [address], [place] [address]- 6969 Sep, Unspecified episodic mood disorder 296.90 [facility] [address] [facility] [id number], [place] [address]- 6408 Sep, [facility] [address] [facility] [id number] [place] [address]- 7286 Sep, [facility] [address] [facility] [id number], [place] [address]- 1048 16 Sep, 2014 Episodic mood disorder 296.90 [facility] [id number] [address]- 5687 Sep, [facility] [address], [place] [address]- 0415 Sep, [facility] [id number] [place] [address] 212322- 8272 Sep, [facility] [id number] [place] [address] 16853- 1946 Sep, Hematemesis 578.0 and Vomiting 787.03 [facility] [id number] [place] [address] 25368- 7963 Sep, Episodic mood disorder 296.90 [facility] [id number] [place] [address] 21345- 4133 Sep, [facility] [id number] [place] [address] 33884- 8667 Sep, [facility] [id number] [place] [address] 94931- 6503 Sep, Diabetes mellitus without mention of complication, type II or unspecified type, not stated as uncontrolled 250.00 and Other chronic pain 338.29 [facility] [id number] [place] [address] 33209- 5991 Sep, Episodic mood disorder 296.90 [facility] [id number] [place] [address] 55176- 8375 Sep, [facility] [id number] [place] [address] 40343- 8805 Sep, Episodic mood disorder 296.90 [facility] [id number] [place] [address] 61593- 4114 Sep, [facility] [id number] [place] [address] 45022- 8481 August, [facility] [id number] [place] [address] 67252- 8433 August, [facility] [id number] [address] August, Episodic mood disorder 296.90 [facility] [address] [id number] [place] [address] August, [facility] [id number] [address] August, Unspecified episodic mood disorder 296.90 [facility] [id number] [place] [address] August, Vomiting 787.03 [facility] [address] [id number] [address]14 August, [facility] [id number] [address] August, [facility] [id number] [place] [address] 48[address] August, [facility] [id number] [address] August, [facility] [id number] [place] [address] August, [facility] [id number] [address] Jul, [facility] [id number] [place] [address] Jul, [facility] [id number] [address] Jul, [facility] [place] [facility] [id number] [place] [address]- 6699 Jun, [facility] [place] [facility] [id number] [address] [address] Jun, [facility] [place] [facility] [id number] 4991 Jun, [facility] [id number] [place] [address]- [address] 30 Jun, 2014 [facility] [place] [facility] [address] [id number] [place] [address] 9144 30 Jun, 2014 [facility] [place] [facility] [address] [id number] [place] [address]- 4781 Jun, [facility] [place] [facility] [address] [id number] [place] [address] 5419 Jun, [facility] [place] [facility] [address] [id number] [place] [address]- 7297 Jun, [facility] [place] [facility] [address] [id number] [place] [address]- 0716 Jun, [facility] [place] [facility] [address] [id number] [place] [address]- 0586 Jun, [facility] [place] [facility] [address] [id number] [place] [address]- 1349 Jun, [facility] [place] [facility] [address] [id number] [place] [address] Jun, [facility] [place] [facility] [address] [id number] [place] [address]- 7419 Jun, [facility] [place] [facility] [address] [id number] [place] [address] Jun, [facility] [place] [facility] [address] [id number] [place] [address] 3878 Jun, [facility] [place] [facility] [address] [id number] [place] [address] 5831 Jun, [facility] [place] [facility] [address] [id number] [place] [address] 2789 Jun, [facility] [place] [facility] [address] [id number] [place] [address] 8758 Jun, [facility] [place] [facility] [address] [id number] [place] [address] 3898 Jun, [facility] [place] [facility] [address] [id number] [place] [address] 1976 21 Jun, 2014 [facility] [place] [facility] [address] [id number] [place] [address]- 2516 21 Jun, 2014 [facility] [place] [facility] [address] [id number] [place] [address] 2526 20 Jun, 2014 [facility] [place] [facility] [address] [id number] [place] [address] 4576 20 Jun, 2014 [facility] [place] [facility] [address] [id number] [place] [address] 4065 20 Jun, 2014 [facility] [place] [facility] [address] [id number] [place] [address] 8621 20 Jun, 2014 [facility] [place] [facility] [address] [id number] [place] [address]- 5684 19 Jun, 2014 [facility] [place] [facility] [address] [id number] [place] [address]- 4527 19 Jun, 2014 [facility] [place] [facility] [address] [id number] [place] [address]- 2682 18 Jun, 2014 [facility] [place] [facility] [address] [id number] [place] [address]- 7624 18 Jun, 2014 [facility] [place] [facility] [address] [id number] [place] [address]- 8993 17 Jun, 2014 [facility] [place] [facility] [address] [id number] [place] [address]- 2019 17 Jun, 2014 [facility] [place] [facility] [address] [id number] [place] [address]- 9082 16 Jun, 2014 [facility] [place] [facility] [address] [id number] [place] [address]- 9366 16 Jun, 2014 [facility] [place] [facility] [address] [id number] [place] [address]- 8955 16 Jun, 2014 [facility] [place] [facility] [address] [id number] [place] [address]- 8832 16 Jun, 2014 [facility] [place] [facility] [address] [id number] [place] [address]- 8245 16 Jun, 2014 [facility] [place] [facility] [address] [id number] [place] [address]- 4430 16 Jun, 2014 [facility] [place] [facility] [address] [id number] [place] [address]- 1749 Jun, [facility] [place] [facility] [address] [id number] [place] [address]- 1628 13 Jun, 2014 [facility] [place] [facility] [address] [id number] [place] [address]- 2744 Jun, [facility] [place] [facility] [address] [id number] [place] [address]- 4250 Jun, [facility] [place] [facility] [address] [id number] [place] [address]- 3837 Jun, 2014 [facility] [place] [facility] [address] [id number] [place] [address]- 1768 Jun, 2014 [facility] [place] [facility] [address] [id number] [place] [address]- 6113 Jun, [facility] [place] [facility] [address] [id number] [place] [address]- 6894 Jun, 2014 [facility] [place] [facility] [address] [id number], [place] [address] 4603 Jun, 2014 [facility] [place] [facility] [address] [id number], [place] [address]- 4250 Jun, 2014 [facility] [place] [facility] [address] [id number] [place] [address]- 9547 Jun, 2014 [facility] [place] [facility] [address] [id number] [place] [address]- 9164 Jun, 2014 [facility] [place] [facility] [address] [id number] [place] [address]- 1127 Jun, 2014 [facility] [place] [facility] [address] [facility] [id number] [place] [address]- 9605 Jun, [facility] [place] [facility] [address] [id number] [place] [address]- 6011 Jun, [facility] [place] [facility] [address] [id number] [place] [address]- 2547 Jun, 2014 [facility] [place] [facility] [address] [facility] [id number] [place] [address]- 8462 Jun, [facility] [place] [facility] [address] [facility] [id number] [place] [address]- 1803 Jun, [facility] [place] [facility] [address] [id number] [place] [address]- 3525 Jun, [facility] [place] [facility] [address] [facility] [id number] [place] [address]- 7985 Jun, [facility] [place] [facility] [address] [facility] [id number] [place] [address]- 0416 May, [facility] [place] [facility] [address] [facility] [id number] [place] [address]- 6257 May, [facility] [place] [facility] [address] [id number] [place] [address]- 1143 May, [facility] [place] [facility] [address] [id number] [place] [address]- 4689 May, [facility] [place] [facility] [address] [facility] [id number] [place] [address]- 8963 May, 2014 [facility] [place] [facility] [address] [facility] [id number] [place] [address]- 2540 May, [facility] [place] [facility] [address] [facility] [id number] [place] [address]- 9521 May, [facility] [place] [facility] [address] [facility] [id number], [place] [address]- 4118 May, 2014 [facility] [place] [facility] [address] [id number] [address]- 6020 May, 2014 [facility] [place] [facility] [address] [facility] [id number] [place] [address]- 6626 20 May, 2014 [facility] [place] [facility] [address] [facility] [id number] [place] [address]- 0016 18 May, 2014 [facility] [place] [facility] [address] [facility] [id number] [place] [address]- 9322 18 May, 2014 [facility] [place] [facility] [address] [facility] [id number] [place] [address]- 0700 13 May, 2014 [facility] [place] [facility] [address] [facility] [id number] [place] [address]- 2770 13 May, 2014 [facility] [place] [facility] [address] [id number] [place] [address]- 0589 11 May, 2014 [facility] [place] [facility] [address] [id number] [place] [address]- 7255 May, 2014 [facility] [place] [facility] [address] [facility] [id number] [place] [address]- 2541 May, 2014 [facility] [place] [facility] [address] [facility] [id number] [place] [address]- 5988 May, 2014 [facility] [place] [facility] [address] [facility] [id number], [place] [address]- 4243 09 May, 2014 [facility] [place] [facility] [address] [facility] [id number] [place] [address]- 2546 May, 2014 [facility] [place] [facility] [address] [facility] [id number], [place] [address]- 2540 May, 2014 [facility] [place] [facility] [address] [facility] [id number] [place] [address]- 7151 May, 2014 [facility] [place] [facility] [address] [facility] [id number][place] [address]- 2548 May, 2014 [facility] [place] [facility] [id number] [place] [address]- 1190 May, [facility] [place] [facility] [address] [id number] [place] [address]- 0055 May, [facility] [place] [facility] [address] [id number] [place] [address]- 4600 May, [facility] [place] [facility] [address] [id number] [place] [address]- 0869 May, [facility] [place] [facility] [address] [id number] [place] [address]- 4832 Apr, [facility] [place] [facility] [address] [id number] [place] [address]- 9222 Apr, [facility] [place] [facility] [address] [id number] [place] [address]- 4384 Apr, [facility] [place] [facility] [address] [id number] [place] [address]- 7606 Apr, [facility] [place] [facility] [address] [id number], [place] [address]- 1522 Apr, [facility] [place] [facility] [address] [id number] [place] [address]- 2767 Apr, [facility] [place] [facility] [address] [id number] [place] [address]- 3780 Apr, [facility] [place] [facility] [address] [id number], [place] [address]- 3852 Apr, [facility] [place] [facility] [address] [id number], [place] [address]- 6177 Apr, [facility] [place] [facility] [address] [id number] [place] [address]- 5516 Apr, [facility] [place] [facility] [address] [id number], [place] [address]- 1566 Apr, [facility] [place] [facility] [address] [id number], [place] [address]- 3860 Apr, [facility] [place] [facility] [address] [id number] [place] [address]- 5799 Apr, [facility] [address] [id number] [place] [address]- 7182 Apr, [facility] [place] [facility] [address] [id number] [place] [address]- 2360 Apr, [facility] [place] [facility] [address] [id number] [place] [address]- 8517 Apr, [facility] [place] [facility] [address] [id number] [place] [address]- 6556 Apr, [facility] [place] [facility] [address] [id number] [place] [address]- 7421 Apr, [facility] [place] [facility] [address] [id number] [place] [address]- 3996 Apr, [facility] [place] [facility] [address] [id number] [place] [address]- 4626 Apr, [facility] [place] [facility] [address] [id number] [place] [address]- 4102 Mar, [facility] [place] [facility] [address] [id number] [place] [address]- 2199 Mar, [facility] [place] [facility] [address] [facility] [id number] [place] [address]- 8624 Mar, [facility] [place] [facility] [address] [id number] [place] [address]- 2960 Mar, [facility] [place] [facility] [address] [id number] [place] [address]- 8626 Mar, [facility] [place] [facility] [address] [id number] [place] 2018 Mar, [facility] [place] [facility] [address] [id number] [place] [address]888 Mar, [facility] [place] [facility] [address] [id number] [place] [address]- 3696 Mar, [facility] [place] [facility] [address] [id number] [place] [address]- 2769 Mar, [facility] [place] [facility] [address] [id number] [place] [address]- 5654 Mar, [facility] [place] [facility] [address] [id number] [place] [address]- 6262 Mar, [facility] [place] [facility] [address] [id number] [place] [address]- 3072 Mar, [facility] [place] [facility] [address] [id number] [place] [address]- 6548 Mar, [facility] [place] [facility] [address] [id number] [place] [address]- 8353 Mar, [facility] [place] [facility] [address] [id number] [place] [address]- 7180 Mar, [facility] [place] [facility] [address] [id number] [place] [address]- 8762 Mar, [facility] [place] [facility] [address] [id number] [place] [address]- 2373 Feb, [facility] [place] [facility] [address] [id number] [place] [address]- 4423 Feb, [facility] [place] [facility] [address] [id number] [place] [address]- 8203 Feb, [facility] [place] [facility] [address] [id number] [place] [address]- 9223 Feb, [facility] [place] [facility] [address] [id number] [place] [address]- 1430 Feb, [facility] [place] [facility] [address] [id number] [place] [address]- 5688 Feb, [facility] [place] [facility] [address] [id number] [place] [address]- 1479 Feb, [facility] [place] [facility] [address] [id number] [place] [address]- 0988 18 Feb, 2014 [facility] [place] [facility] [address] [id number] [place] [address]- 2680 18 Feb, 2014 [facility] [place] [facility] [address] [id number] [place] [address]- 7776 17 Feb, 2014 [facility] [place] [facility] [address] [id number] [place] [address]- 2284 17 Feb, 2014 [facility] [place] [facility] [address] [id number] [place] [address]- 8356 17 Feb, 2014 [facility] [place] [facility] [address] [id number] [place] [address]- 2680 17 Feb, 2014 [facility] [place] [facility] [address] [id number] [place] [address]- 0951 14 Feb, 2014 [facility] [place] [facility] [address] [id number] [place] [address]- 9606 Feb, [facility] [place] [facility] [address] [id number] [place] [address]- 1747 14 Feb, 2014 [facility] [place] [facility] [address] [id number] [place] [address]- 6494 Feb, [facility] [place] [facility] [address] [id number] [place] [address]- 3371 Feb, [facility] [place] [facility] [address] [id number] [place] [address]- 1469 Feb, [facility] [place] [facility] [address] [id number] [place] [address]- 5049 Feb, [facility] [place] [facility] [address] [id number] [place] [address]- 5336 Feb, [facility] [place] [facility] [address] [id number] [place] [address]- 5337 Jan, [facility] [place] [facility] [address] [id number] [place] [address]- 3910 Jan, [facility] [place] [facility] [address] [id number] [place] [address]- 7327 30 Jan, 2013 [facility] [place] [facility] [address] [id number] [place] [address]- 4997 30 Jan, 2014 [facility] [place] [facility] [address] [id number] [place] [address]- 7644 24 Jan, 2014 [facility] [place] [facility] [address] [id number] [place] [address]- 7027 24 Jan, 2014 [facility] [place] [facility] [address] [id number] [place] [address]- 5912 Jan, [facility] [place] [facility] [address] [id number] [place] [address]- 5672 Jan, [facility] [place] [facility] [address] [id number] [place] [address]- 8056 Jan, [facility] [place] [facility] [address] [id number] [place] [address]- 0481 Jan, [facility] [place] [facility] [address] [id number] [place] [address]- 8393 17 Jan, 2014 [facility] [place] [facility] [address] [id number] [place] [address]- 7012 17 Jan, 2014 [facility] [place] [facility] [address] [id number] [place] [address]- 0976 17 Jan, 2014 [facility] [place] [facility] [address] [id number] [place] [address]- 4248 17 Jan, 2013 [facility] [place] [facility] [address] [id number] [place] [address]- 6800 15 Jan, 2014 [facility] [place] [facility] [address] [id number] [place] [address]- 7599 15 Jan, 2014 [facility] [place] [facility] [address] [id number] [place] [address]- 3946 14 Jan, 2014 [facility] [place] [facility] [address] [id number] [place] [address]- 4140 14 Jan, 2014 [facility] [place] [facility] [address] [id number] [place] [address]- 2422 Jan, [facility] [place] [facility] [address] [id number] [place] [address]- 8832 Jan, [facility] [place] [facility] [address] [id number] [place] [address]- 3497 Jan, [facility] [place] [facility] [address] [id number] [place] [address]- 4504 Jan, [facility] [place] [facility] [address] [id number] [place] [address]- 7758 Jan, [facility] [place] [facility] [address] [id number] [place] [address]- 6214 Jan, [facility] [place] [facility] [address] [id number] [place] [address]- 4415 Jan, [facility] [place] [facility] [address] [id number], [place] [address]- 1149 25 Dec, 2013 [facility] [place] [facility] [address] [id number] [place] [address]- 4364 25 Dec, 2013 [facility] [place] [facility] [address] [id number], [place] [address]- 2794 23 Dec, 2013 [facility] [place] [facility] [address] [id number], [place] [address]- 3948 23 Dec, 2013 [facility] [place] [facility] [address] [id number], [place] [address]- 8584 19 Dec, 2013 [facility] [place] [facility] [address] [id number] [place] [address]- 1328 19 Dec, 2013 [facility] [place] [facility] [address] [id number], [place] [address]- 2382 17 Dec, 2013 [facility] [place] [facility] [address] [id number], [place] [address]- 9933 17 Dec, 2013 [facility] [place] [facility] [address] [id number], [place] [address]- 8384 09 Sep, 2013 [facility] [place] [facility] [address] [id number] [place] [address]- 2625 09 Sep, 2013 [facility] [place] [facility] [address] [id number] [place] [address]- 6075 08 Dec, 2013 [facility] [place] [facility] [address] [id number] [place] [address]- 7115 08 Sep, 2013 [facility] [place] [facility] [address] [id number] [place] [address]- 6134 Dec, 2013 [facility] [place] [facility] [address] [id number] [place] [address]- 5964 Dec, 2013 [facility] [place] [facility] [address] [id number] [place] [address]- 2509 Dec, 2013 [facility] [place] [facility] [address] [id number] [place] [address]- 0141 Dec, 2013 [facility] [place] [facility] [address] [id number] [place] [address]- 5956 Dec, 2013 [facility] [place] [facility] [address] [id number] [place] [address]- 3339 Dec, 2013 [facility] [place] [facility] [address] [id number] [place] [address]- 6477 Nov, [facility] [place] [facility] [address] [id number] [place] [address]- 8967 Nov, [facility] [place] [facility] [address] [id number], [place] [address]- 254 Nov, [facility] [place] [facility] [address] [id number] [place] [address]- 4496 Nov, [facility] [place] [facility] [address] [id number] [place] [address]- 3209 Nov, [facility] [place] [facility] [address] [id number] [place] [address]- 0179 Nov, [facility] [place] [facility] [address] [id number] [place] [address]- 4174 Nov, [facility] [place] [facility] [address] [id number] [place] [address]- 6504 Nov, [facility] [place] [facility] [address] [id number] [place] [address]- 6916 Nov, [facility] [place] [facility] [address] [id number] [place] [address]- 8059 Nov, [facility] [place] [facility] [address] [id number] [place] [address]- 6857 Nov, [facility] [place] [facility] [address] [id number] [place] [address]- 1751 Nov, [facility] [place] [facility] [address] [id number] [place] [address]- 8041 Oct, [facility] [place] [facility] [address] [id number] [place] [address]- 1534 Oct, [facility] [place] [facility] [address] [id number] [place] [address]- 8073 Oct, [facility] [place] [facility] [address] [id number] [place] [address]- 3418 Oct, [facility] [place] [facility] [address] [id number] [place] [address] Oct, [facility] [place] [facility] [address] [id number] [place] [address] Oct, [facility] [place] [facility] [address] [id number] [place] [address] Oct, [facility] [place] [facility] [address] [id number] [place] [address] Oct, [facility] [place] [facility] [address] [id number] [place] [address] Oct, [facility] [place] [facility] [address] [id number] [place] [address] 22 Oct, 2013 [facility] [place] [facility] [address] [id number] [place] [address] 16 Oct, 2013 [facility] [place] [facility] [address] [id number] [place] [address]64 16 Oct, 2013 [facility] [place] [facility] [address] [id number] [place] [address] 14 Oct, 2013 [facility] [place] [facility] [address] [id number] [place] [address] 14 Oct, 2013 [facility] [place] [facility] [address] [id number] [place] [address] Oct, [facility] [place] [facility] [address] [id number] [place] [address] Oct, [facility] [place] [facility] [address] [id number] [place] [address] Oct, [facility] [place] [facility] [address] [id number] [place] [address] 27 Sep, 2013 [facility] [place] [facility] [address] [id number] [place] [address] 27 Sep, 2013 [facility] [place] [facility] [address] [id number] [place] [address] 4049 20 Sep, 2013 [facility] [place] [facility] [address] [id number] [place] [address]- 8584 20 Sep, 2013 [facility] [place] [facility] [address] [id number] [place] [address]- 8771 18 Sep, 2013 [facility] [place] [facility] [address] [id number] [place] [address]- 2260 18 Sep, 2013 [facility] [place] [facility] [address] [id number] [place] [address]- 6865 17 Sep, 2013 [facility] [place] [facility] [address] [id number] [place] [address] 4702 17 Sep, 2013 [facility] [place] [facility] [address] [id number] [place] [address] Sep, [facility] [place] [facility] [address] [id number] [place] [address] Sep, [facility] [place] [facility] [address] [id number] [place] [address]- [address] Sep, [facility] [place] [facility] [address] [id number] [place] [address] 8961 Sep, [facility] [place] [facility] [address] [id number] [place] [address]- 1554 Sep, [facility] [place] [facility] [address] [id number] [place] [address] 7201 Sep, [facility] [place] [facility] [address] [id number] [place] [address] 69[address] Sep, [facility] [place] [facility] [address] [id number] [place] [address]244 Sep, [facility] [place] [facility] [address] [id number] [place] [address] 9061 Sep, [facility] [place] [facility] [address] [id number] [place] [address]- 4566 Sep, [facility] [place] [facility] [address] [facility] [id number] [place] [address] 1197 Sep, [facility] [place] [facility] [address] [id number] [place] [address] 8235 Sep, [facility] [place] [facility] [address] [id number] [place] [address] 2487 Sep, [facility] [place] [facility] [address] [id number] [place] [address] 6979 Sep, [facility] [place] [facility] [address] [id number] [place] [address]605 August, [facility] [place] [facility] [address] [id number] [place] [address] 1325 August, [facility] [place] [facility] [address] [id number] [place] [address] 6462 August, [facility] [address] [id number] [place] [address] 76[address] August, [facility] [address] [id number] [place] [address] 8774 August, [facility] [address] [id number] [place] [address] 7663 August, [facility] [address] [id number] [place] [address]649 August, [facility] [address] [id number] [place] [address] 8761 August, [facility] [address] [id number] [place] [address]- 65[address] August, [facility] [address] [id number] [place] [address] August, [facility] [address] [id number] [place] [address] 5910 August, [facility] [address] [id number] [place] [address]- 97[address] Jul, [facility] [place] [facility] [address] [id number] [place] [address]- 6765 Jul, [facility] [place] [facility] [address] [id number] [place] [address] 9334 Jul, [facility] [place] [facility] [address] [id number] [place] [address] Jul, [facility] [place] [facility] [address] [id number] [place] [address]- 4969 Jul, [facility] [place] [facility] [address] [id number] [place] [address]- 3518 Jul, [facility] [place] [facility] [address] [id number] [place] [address] 8771 Jul, [facility] [place] [facility] [address] [id number] [place] [address] 2892 Jul, [facility] [place] [facility] [address] [id number] [place] [address]- 2026 Jul, [facility] [place] [facility] [address] [id number] [place] [address]- 7529 Jul, [facility] [place] [facility] [address] [id number] [place] [address]- 8134 16 Jul, 2013 [facility] [place] [facility] [address] [id number] [place] [address]- 1196 Jul, [facility] [place] [facility] [address] [id number] [place] [address]- 0856 Jul, [facility] [place] [facility] [address] [id number] [place] [address]- 4197 Jul, [facility] [place] [facility] [address] [id number] [place] [address]- 7683 Jul, [facility] [place] [facility] [address] [id number] [place] [address]- 8098 Jul, [facility] [place] [facility] [address] [id number] [place] [address]- 1254 Jul, [facility] [place] [facility] [address] [id number] [place] [address]- 7270 Jul, [facility] [place] [facility] [address] [id number] [place] [address]- 8853 Jul, [facility] [place] [facility] [address] [id number] [place] [address]- 2816 Jul, [facility] [place] [facility] [address] [id number] [place] [address]- 2023 Jul, [facility] [place] [facility] [address] [id number] [place] [address]- 8841 Jul, [facility] [place] [facility] [address] [id number] [place] [address]- 2206 Jul, [facility] [address] [id number] [place] [address]- 3468 Jun, [facility] [place] [facility] [address] [id number] [place] [address] Jun, [facility] [address] [id number] [place] [address] Jun, [facility] [place] [facility] [address] [id number] [place] [address] Jun, [facility] [place] [facility] [address] [id number] [place] [address]396 Jun, [facility] [place] [facility] [address] [id number] [place] [address] 5[address] Jun, [facility] [place] [facility] [address] [id number] [place] [address] 4634 Jun, [facility] [address] [id number] [place] [address] Jun, [facility] [place] [facility] [address] [id number] [place] [address] 285[address] Jun, [facility] [address] [id number] [place] [address] 3186 Jun, [facility] [place] [facility] [address] [id number] [place] [address] 8677 Jun, [facility] [place] [facility] [address] [id number] [place] [address]- 9693 Jun, [facility] [place] [facility] [address] [id number] [place] [address] 2849 May, [facility] [place] [facility] [address] [id number] [place] [address] 1396 May, [facility] [place] [facility] [address] [id number] [place] [address]- 4411 Apr, [facility] [address] [id number] [place] [address] 3757 Apr, [facility] [place] [facility] [address] [id number] [place] [address]- 1747 Apr, [facility] [place] [facility] [address] [id number] [place] [address]- 7207 Apr, [facility] [place] [facility] [address] [id number] [place] [address]- 8961 Apr, [facility] [place] [facility] [address] [id number] [place] [address]- 4368 Apr, [facility] [place] [facility] [address] [id number] [place] [address]- 4774 Apr, [facility] [place] [facility] [address] [id number] [place] [address]- 9649 Apr, [facility] [place] [facility] [address] [id number] [place] [address]- 0523 Apr, [facility] [place] [facility] [address] [id number] [place] [address]- 3912 Apr, [facility] [place] [facility] [address] [id number] [place] [address]- 6845 Apr, [facility] [place] [facility] [address] [id number] [place] [address]- 4170 16 Mar, 2013 [facility] [place] [facility] [address] [id number], [place] [address] 750[address] Mar, [facility] [place] [facility] [address] [id number] [place] [address]- 6436 Mar, [facility] [place] [facility] [address] [id number] [place] [address]- 7896 Mar, [facility] [place] [facility] [address] [id number] [place] [address]- 0823 Feb, [facility] [place] [facility] [address] [id number] [place] [address]- 9273 Feb, [facility] [place] [facility] [address] [id number] [place] [address]- 0607 Feb, [facility] [place] [facility] [address] [id number] [place] [address]- 5083 Feb, [facility] [place] [facility] [address] [id number] [place] [address]- 8171 Feb, [facility] [place] [facility] [address] [id number] [place] [address]- 8632 Feb, [facility] [place] [facility] [address] [id number] [place] [address]- 2802 Feb, [facility] [place] [facility] [address] [id number] [place] [address]- 8242 Feb, [facility] [place] [facility] [address] [id number] [place] [address]- 4588 Feb, [facility] [place] [facility] [address] [id number] [place] [address]- 3534 Feb, [facility] [place] [facility] [address] [id number] [place] [address]- 0961 Feb, [facility] [place] [facility] [address] [facility] [id number] [place] [address]- 3790 Jan, [facility] [place] [facility] [address] [id number] [place] [address]- 2817 Jan, [facility] [place] [facility] [address] [id number] [address] 8399 Jan, [facility] [place] [facility] [address] [id number] [place] [address]- 1995 Jan, [facility] [place] [facility] [address] [facility] [id number] [place] [address]- 0613 Jan, [facility] [place] [facility] [address] [facility] [id number], [place] [address]- 0648 Jan, [facility] [place] [facility] [address] [id number] [place] [address]- 8211 03 Jan, 2013 [facility] [place] [facility] [address] [id number] [place] [address]- 4489 02 Jan, 2013 [facility] [place] [facility] [address] [id number] [place] [address]- 9171 30 Dec, 2012 [facility] [place] [facility] [address] [id number] [place] [address]- 6309 25 Dec, 2012 [facility] [place] [facility] [address] [id number] [place] [address]- 5155 18 Dec, 2012 [facility] [place] [facility] [address] [id number] [place] [address]- 7684 17 Dec, 2012 [facility] [place] [facility] [address] [id number] [place] [address]- 8034 17 Dec, 2012 [facility] [place] [facility] [address] [id number] [place] [address]- 4406 16 Dec, 2012 [facility] [place] [facility] [address] [id number] [place] [address]- 4107 13 Dec, 2012 [facility] [place] [facility] [address] [id number] [place] [address]- 1097 11 Dec, 2012 [facility] [place] [facility] [address] [id number] [place] [address]- 4242 05 Dec, 2012 [facility] [place] [facility] [address] [id number] [place] [address]- 0569 04 Dec, 2012 [facility] [place] [facility] [address] [id number] [place] [address]- 6953 30 Nov, 2012 [facility] [place] [facility] [address] [id number] [place] [address]- 5459 29 Nov, 2012 [facility] [place] [facility] [address] [id number] [place] [address]- 6589 Nov, [facility] [place] [facility] [address] [id number] [place] [address]- 8484 16 Nov, 2012 [facility] [place] [facility] [address] [id number] [place] [address]- 3302 14 Nov, 2012 [facility] [place] [facility] [address] [id number] [place] [address]- 4108 Nov, [facility] [place] [facility] [address] [id number] [place] [address]- 2750 05 Nov, 2012 [facility] [place] [facility] [address] [id number] [place] [address]- 6911 29 Oct, 2012 [facility] [place] [facility] [address] [id number] [place] [address]- 1958 Oct, [facility] [place] [facility] [address] [id number] [place] [address]- 3636 Oct, [facility] [place] [facility] [address] [id number] [place] [address]- 5114 Oct, [facility] [place] [facility] [address] [id number] [place] [address]- 1873 15 Oct, 2012 [facility] [place] [facility] [address] [id number] [place] [address]- 5880 Oct, [facility] [place] [facility] [address] [id number] [place] [address]- 6167 Sep, [facility] [place] [facility] [address] [id number] [place] [address]- 7953 28 Sep, 2012 [facility] [place] [facility] [address] [id number] [place] [address]- 7942 27 Sep, 2012 [facility] [place] [facility] [address] [id number] [place] [address]- 1760 14 Sep, 2012 [facility] [place] [facility] [address] [id number] [place] [address]- 4979 13 Sep, 2012 [facility] [place] [facility] [address] [id number] [place] [address]- 6428 10 Sep, 2012 [facility] [place] [facility] [address] [id number] [place] [address]- 3482 Sep, [facility] [address] [id number] [place] [address]- 2416 Sep, [facility] [address] [id number] [place] [address]- 6813 Sep, [facility] [address] [id number] [place] [address]- 8327 August, [facility] [address] [id number] [place] [address]- 1316 August, [facility] [address] [id number] [place] [address]- 3179 August, [facility] [address] [id number] [place] [address]- 3056 August, [facility] [address] [id number] [place] [address]- 2550 August, [facility] [address] [id number] [place] [address]- 9632 August, [facility] [address] [id number] [place] [address]- 4403 August, [facility] [address] [id number] [place] [address]- 8396 August, [facility] [address] [id number] [place] [address]- 8088 Jul, [facility] [address] [id number] [place] [address]- [address]24 Jul, [address] [facility] [address] [place] [id number] Jul [facility] [address] [id number] [place] [address]- 8996 Jun, [facility] [address] [id number] [place] [address]- 1664 Jun, [facility] [address] [id number] [place] [address]- 3614 Jun, [facility] [address] [id number] [place] [address]- 7927 Jun, [facility] [place] [facility] [address] [id number] [place] [address]- 1575 Jun, [facility] [address] [id number] [place] [address]- 6937 Jun, [facility] [place] [facility] [address] [id number] [place] [address]- 7804 May, [facility] [place] [facility] [address] [id number] [place] [address]- 3590 May, [facility] [place] [facility] [address] [id number] [place] [address]- 2399 May, [facility] [place] [facility] [address] [id number] [place] [address]- 4068 May, [facility] [place] [facility] [address] [id number] [place] [address]- 4064 May, [facility] [place] [facility] [address] [id number] [place] [address]- 6936 Apr, [facility] [place] [facility] [address] [id number] [place] [address]- 8681 Apr, [facility] [place] [facility] [address] [id number] [place] [address]- 4623 Apr, [facility] [place] [facility] [address] [id number] [place] [address]- 6357 Apr, [facility] [place] [facility] [address] [id number] [place] [address]- 1988 Apr, [facility] [place] [facility] [address] [id number] [place] [address]- 0499 Apr, [facility] [place] [facility] [address] [id number] [place] [address]- 4141 Mar, [facility] [place] [facility] [address] [id number] [place] [address]- 8527 Mar, [facility] [place] [facility] [address] [id number] [place]66 Mar, [facility] [place] [facility] [address] [id number] [place] [address]- 5736 Mar, [facility] [place] [facility] [address] [id number] [place] [address]- 2920 Mar, [facility] [place] [facility] [address] [id number] [place] [address]- 1514 Mar, [facility] [place] [facility] [address] [id number] [place] [address]- 8091 18 Mar, 2012 [facility] [place] [facility] [address] [id number] [place] [address]- 3138 Mar, [facility] [place] [facility] [address] [id number] [place] [address]- 1743 Mar, [facility] [place] [facility] [address] [id number] [place] [address]- 8020 05 Mar, 2012 [facility] [place] [facility] [address] [id number] [place] [address]- 3046 Mar, [facility] [place] [facility] [address] [id number] [place] [address]- 6935 Feb, [facility] [place] [facility] [address] [id number] [place] [address]- 7354 Feb, [facility] [place] [facility] [address] [id number] [place] [address]- 0745 Feb, [facility] [place] [facility] [address] [id number] [place] [address]- 9219 Feb, [facility] [place] [facility] [address] [id number] [place] [address]- 6970 Feb, [facility] [place] [facility] [address] [id number] [place] [address]- 1033 16 Feb, 2012 [facility] [place] [facility] [address] [id number] [place] [address]- 4486 16 Feb, 2012 [facility] [place] [facility] [address] [id number] [place] [address]- 2072 Feb, [facility] [place] [facility] [address] [id number] [place] [address]- 5517 Feb, [facility] [place] [facility] [address] [id number] [place] [address]- 2570 Feb, [facility] [place] [facility] [address] [id number] [place] [address], [place] [address]- 8270 Feb, [facility] [place] [facility] [address] [id number] [place] [address]- 2438 Jan, [facility] [place] [facility] [address] [id number] [place] [address]- 7762 Jan, [facility] [place] [facility] [address] [id number] [place] [address]- 1322 Jan, [facility] [place] [facility] [address] [facility] [id number] [place] [address]- 9530 Jan, [facility] [place] [facility] [address] [facility] [id number] [place] [address]- 2726 Jan, [facility] [place] [facility] [address] [id number] [place] [address]- 0773 Jan, [facility] [place] [facility] [address] [id number] [place] [address]- 5357 09 Jan, 2012 [facility] [place] [facility] [address] [id number] [place] [address]- 0212 24 Dec, 2011 [facility] [place] [facility] [address] [facility] [id number] [place] [address]- 1807 17 Sep2011 [facility] [place] [facility] [address] [id number] [place] [address]- 1427 Dec, [facility] [place] [facility] [address] [id number] [place] [address]- 8080 Dec, [facility] [place] [facility] [address] [id number] [place] [address]- 7237 Nov, [facility] [place] [facility] [address] [id number] [place] [address]- 1014 Nov, [facility] [place] [facility] [address] [id number] [place] [address]- 3959 Nov, [facility] [place] [facility] [address] [id number] [place] [address]- 6470 Nov, [facility] [place] [facility] [address] [id number] [place] [address]- 1248 Nov, [facility] [place] [facility] [address] [id number] [place] [address]- 7273 Nov, [facility] [place] [facility] [address] [id number] [place] [address]- 3733 Nov, [facility] [place] [facility] [address] [id number] [place] [address]- 3923 Nov, [facility] [place] [facility] [address] [id number] [place] [address]- 9643 Nov, [facility] [place] [facility] [address] [id number] [place] [address]- 2214 Nov, [facility] [place] [facility] [address] [id number] [place] [address]- 6128 Nov, [facility] [place] [facility] [address] [id number] [place] [address]- 5667 Nov, [facility] [place] [facility] [address] [id number] [place] [address]- 5677 Nov, [facility] [place] [facility] [address] [id number] [place] [address]- 0276 Oct, [facility] [place] [facility] [address] [id number] [place] [address]- 7229 Oct, [facility] [place] [facility] [address] [id number] [place] [address]- 2336 Oct, [facility] [place] [facility] [address] [id number] [place] [address]- 2687 Oct, [facility] [place] [facility] [address] [id number] [place] [address]- 1739 Oct, [facility] [place] [facility] [address] [id number] [place] [address]- 6026 Oct, [facility] [place] [facility] [address] [id number] [place] [address]- 0345 Oct, [facility] [place] [facility] [address] [id number] [place] [address]- 1031 Oct, [facility] [place] [facility] [address] [id number] [place] [address]- 7800 Oct, [facility] [place] [facility] [address] [id number] [place] [address]- 7855 Sep, [facility] [place] [facility] [address] [id number] [place] [address]- 7347 Sep, [facility] [place] [facility] [address] [id number] [place] [address]- 4898 Sep, [facility] [place] [facility] [address] [id number] [place] [address]- 9272 Sep, [facility] [place] [facility] [address] [id number] [place] [address]- 4807 Sep, [facility] [place] [facility] [address] [id number] [place] [address]- 2174 Sep, [facility] [place] [facility] [address] [id number] [place] [address]- 0389 Sep, [facility] [place] [facility] [address] [facility] [id number] [place] [address]- 5786 Sep, [facility] [place] [facility] [address] [id number] [address]- 9636 August, [facility] [address] [id number] 4556 August, [facility] [address] [id number], [place] [address]- 2426 August, [facility] [id number], [place] [address]- 9474 August, [facility] [address] [facility] [id number][place] [address] 8725 August, [facility] [id number] [address]456 August, [facility] [id number], [place] [address]- 8250 August, [facility] [id number], [place] [address]- 0534 August, [facility] [id number], [place] [address]- 5964 August, [facility] [id number], [place] [address]- 9245 August, [facility] [address] [id number] 5359 August, [facility] [address] [id number], [place] [address]- 0381 August, [facility] [address] [facility] [id number], [place] [address]- 8739 Oct, IMMUNIZATIONS No Known Immunizations SOCIAL HISTORY Never Assessed REASON FOR VISIT Medication question PLAN OF CARE VITAL SIGNS MEDICATIONS Medication Instructions Dosage Frequency Start Date End Date Duration Status Ibuprofen 600 MG Orally Three times a day 1 tablet with food or milk as needed 8h Jul, 30 days Active Mirtazapine 30 MG Orally Once a day 1 tablet at bedtime 24h May, 30 day(s) Active Triamcinolone Acetonide 0.025 % Externally Twice a day 1 application to affected area as needed 12h Jul, Active RESULTS No Results PROCEDURES No Known [...] Surgical History bladder surgery Hospitalization History Via [facility] for right groin pain 05/2011 Hospitalization History Via [facility] for wound on buttocks 08/2012 Hospitalization History Via [facility], hypoxia secondary to pneumonia 12/02-12/09 Hospitalization History Pneumonia, elevated CO2 on Bipap was in ICU 08/2013 Hospitalization History Hypoxia, Exacerbation COPD, Chest pain 09/05/15 Hospitalization History suicidal ideations-[facility] 12/28 Hospitalization History hypoxia--[facility] [place] [facility] 02/13/2016 Hospitalization History shortness of breath at june 2016 Hospitalization History Shortness of breath at august 2016 Hospitalization History SOB, chest pain at 12/2016
--- OUTSIDE RECORDS SUMMARY | 2017-11-24 17:28 | XMS REPORT ---
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 [address]- 5279 Mar, Unspecified mood [affective] disorder F39 [facility] [address] [facility] [id number] [address]- 6413 Mar, [facility] [address] [facility] [id number], [place] [address]- 1554 Mar, [facility] [address] [facility] [id number], [place] [address]- 5834 Mar, [facility] [address] [facility] [id number] [place] [address] 69021- 7645 Mar, [facility] [id number], [place] [address]- 4730 Mar, [facility] [id number] [place] [address] 45250- 4731 Mar, [facility] [id number] [address]- 6947 Feb, Unspecified mood [affective] disorder F39 [facility] [id number], [place] [address]- 5140 Feb, [facility] [id number], [place] [address]- 1227 Feb, [facility] [address], [place] [address]- 0330 Jan, Unspecified mood [affective] disorder F39 [facility] [address] [id number] [id number] Jan, Encounter for dental examination Z01.20 [facility] [id number], [place] [address]- 4453 Jan, [facility] [id number], [place] [address]- 6957 Jan, [facility] [address], [place] [address]- 0114 Jan, [facility] [id number] [place] [address] 00856- 7996 Jan, [facility] [id number] [place] [address] 50905- 6423 Jan, [facility] [id number] [place] [address] 31837- 4507 Jan, Abdominal abscess K65.1 and Dental caries K02.9 [facility] [id number] [place] [address] 97684- 5920 Jan, [facility] [id number] [place] [address] 36707- 4855 30 Dec, 2014 Diabetes with neurological manifestations, type II or unspecified type, not stated as uncontrolled 250.60 ; Essential hypertension, benign 401.1 ; Concussion 850.9 and Skin texture changes 782.8 [facility] [id number] [place] [address] 55196- 5874 Dec, [facility] [id number] [place] [address] 58582- 6105 24 Dec, 2014 [facility] [id number] [place] [address] 01659- 3745 22 Dec, 2014 [facility] [id number] [place] [address] 97220- 6204 21 Dec, 2014 [facility] [id number] [place] [address] 88455- 5269 17 Dec, 2014 Affective disorder 296.90 [facility] [id number] [place] [address] 78675- 9511 14 Dec, 2014 [facility] [id number] [place] [address] 29301- 9290 10 Dec, 2014 Affective disorder 296.90 [facility] [id number] [place] [address] 24879- 1171 Dec, 2014 [facility] [address], [place] [address] 2546 Dec, 2014 [facility] [address] [place] [address] 2546 Dec, [facility] [address], [place] [address] 2546 Dec, [facility] [id number] [place] [address], [place] [address] 2546 Nov, Affective disorder 296.90 [facility] [address] [place] [address] 2546 Nov, [facility] [address], [place] [address] 2546 Nov, Affective disorder 296.90 [facility] [address], [place] [address] 2546 Nov, Diarrhea 787.91 [facility] [address], [place] [address] 2546 Nov, [facility] [address], [place] [address] 2546 Nov, Diarrhea 787.91 [facility] [address], [place] [address] 2546 Nov, Diarrhea 787.91 and Hyperlipidemia 272.4 [facility] [address], [place] [address] 2546 Nov, Diarrhea 787.91 [facility] [id number], [place] [address] 2546 Nov, Affective disorder 296.90 [facility] [address], [place] [address] 2546 Nov, Affective disorder 296.90 [facility] [id number], [place] [address] 2546 Nov, Affective disorder 296.90 [facility] [address], [place] [address]- 9989 Nov, [facility] [address], [place] [address]- 0920 Nov, [facility] [address], [place] [address]- 5129 Nov, [facility] [id number] [place] [address] 93404- 4566 Nov, Episodic mood disorder 296.90 [facility] [address], [place] [address]- 3894 Nov, [facility] [address], [place] [address]- 8233 Nov, [facility] [address], [place] [address]- 6434 Nov, [facility] [address], [place] [address]- 5480 Nov, [facility] [address], [place] [address]- 3703 Nov, [facility] [address], [place] [address]- 3253 Nov, Lymphedema 457.1 ; Hyperlipidemia 272.4 ; Essential hypertension, benign 401.1 and Numbness of toes 782.0 [facility] [address], [place] [address]- 6359 Nov, Episodic mood disorder 296.90 [facility] [address], [place] [address]- 7940 Oct, [facility] [address], [place] [address]- 9836 Oct, [facility] [id number], [place] [address]- 5531 Oct, [facility] [address] [place] [address]- 7414 15 Oct, 2014 [facility] [address] [facility] [id number] [place] [address]- 0758 14 Oct, 2014 [facility] [address] [facility] [id number] [place] [address]- 1780 Oct, 2014 [facility] [address] [facility] [id number] [place] [address]- 0131 Oct, 2014 [facility] [place] [facility] [address] [facility] [id number] [place] [address]- 4708 Oct, 2014 [facility] [address] [facility] [id number] [place] [address]- 1473 Oct, Episodic mood disorder 296.90 [facility] [id number] [place] [address]- 4061 Sep, [facility] [place] [facility] [id number] [place] [address]- 1567 Sep, [facility] [id number] [place] [address]- 8447 Sep, [facility] [place] [facility] [id number] [place] [address]- 2070 Sep, [facility] [place] [facility] [id number] [place] [address]- 8175 Sep, [facility] [place] [facility] [id number] [place] [address]- 5724 Sep, Episodic mood disorder 296.90 [facility] [place] [facility] [id number] [place] [address]- 2304 Sep, Unspecified episodic mood disorder 296.90 [facility] [place] [facility] [id number] [place] [address]- 1475 Sep, [facility] [place] [facility] [id number] [place] [address]- 0004 Sep, [facility] [place] [facility] [id number] [place] [address] 90817- 0839 Sep, Episodic mood disorder 296.90 [facility] [id number] [place] [address] 93456- 9850 Sep, [facility] [id number] [place] [address] 86773- 5810 Sep, [facility] [id number] [place] [address] 42291- 4876 Sep, [facility] [id number] [place] [address] 37258- 5420 Sep, Hematemesis 578.0 and Vomiting 787.03 [facility] [id number] [place] [address] 38068- 0630 Sep, Episodic mood disorder 296.90 [facility] [id number] [place] [address] 33472- 7683 Sep, [facility] [id number] [place] [address] 67658- 0503 Sep, [facility] [id number] [place] [address] 60494- 0540 Sep, Diabetes mellitus without mention of complication, type II or unspecified type, not stated as uncontrolled 250.00 and Other chronic pain 338.29 [facility] [address] [place] [address] 60270- 2455 Sep, Episodic mood disorder 296.90 [facility] [id number] [place] [address] 57535- 8095 Sep, [facility] [id number] [place] [address] 30283- 3852 Sep, Episodic mood disorder 296.90 [facility] [id number] [place] [address] 78544- 5827 Sep, [facility] [id number] [place] [address] 01185- 8852 August, [facility] [address] [facility] [id number] [place] [address]- 4019 August, [facility] [address] [facility] [id number] [place] [address]- 3034 August, Episodic mood disorder 296.90 [facility] [address] [facility] [id number] [place] [address]- 3749 August, [facility] [address] [facility] [id number] [place] [address]- 9227 August, Unspecified episodic mood disorder 296.90 [facility] [address] [facility] [id number] [place] [address]- 7541 August, Vomiting 787.03 [facility] [address] [facility] [id number] [place] [address]- 3716 August, [facility] [id number] [place] [address]- 8893 August, [facility] [address] [facility] [id number] [place] [address]- 0821 August, [facility] [id number] [place] [address]- 9229 August, [facility] [id number] [place] [address]- 3356 August, [facility] [address] [facility] [id number] [place] [address]- 7490 Jul, [facility] [address] [facility] [id number] [place] [address]- 9635 Jul, [facility] [address] [facility] [id number] [place] [address]- 2804 Jul, [facility] [address] [facility] [id number] [place] [address]- 7999 Jun, [facility] [address] [facility] [id number] [place] [address]- 3196 Jun, [facility] [place] [facility] [address] [id number] [place] [address] 30 Jun, 2014 [facility] [place] [facility] [address] [id number] [place] [address] 30 Jun, 2014 [facility] [place] [facility] [address] [id number] [place] [address] 30 Jun, 2014 [facility] [place] [facility] [address] [id number] [place] [address] 30 Jun, 2014 [facility] [place] [facility] [address] [id number] [place] [address] 30 Jun, 2014 [facility] [place] [facility] [address] [id number] [place] [address] 30 Jun, 2014 [facility] [place] [facility] [address] [id number] [place] [address] Jun, [facility] [place] [facility] [address] [id number] [place] [address] Jun, [facility] [place] [facility] [address] [id number] [place] [address] Jun, [facility] [place] [facility] [address] [id number] [place] [address] Jun, [facility] [place] [facility] [address] [id number] [place] [address] Jun, [facility] [place] [facility] [address] [id number] [place] [address] Jun, [facility] [place] [facility] [address] [id number] [place] [address] Jun, [facility] [place] [facility] [address] [id number] [place] [address] Jun, [facility] [place] [facility] [address] [id number] [place] [address] Jun, [facility] [place] [facility] [address] [id number] [place] [address] 23 Jun, 2014 [facility] [place] [facility] [address] [id number] [place] [address] 23 Jun, 2014 [facility] [place] [facility] [address] [id number] [place] [address] 21 Jun, 2014 [facility] [place] [facility] [address] [id number] [place] [address]- [address] 21 Jun, 2014 [facility] [place] [facility] [address] [id number] [place] [address] 20 Jun, 2014 [facility] [place] [facility] [address] [id number] [place] [address] 139[address] 20 Jun, 2014 [facility] [place] [facility] [address] [id number] [place] [address] 20 Jun, 2014 [facility] [place] [facility] [address] [id number] [place] [address] 20 Jun, 2014 [facility] [place] [facility] [address] [id number] [place] [address] 19 Jun, 2014 [facility] [place] [facility] [address] [id number] [place] [address] 19 Jun, 2014 [facility] [place] [facility] [address] [id number] [place] [address]- 39[address] 18 Jun, 2014 [facility] [place] [facility] [address] [id number] [place] [address] 18 Jun, 2014 [facility] [place] [facility] [address] [id number] [place] [address] 17 Jun, 2014 [facility] [place] [facility] [address] [id number] [place] [address] 39[address] 17 Jun, 2014 [facility] [place] [facility] [address] [id number] [place] [address] 16 Jun, 2014 [facility] [place] [facility] [address] [id number] [place] [address] 16 Jun, 2014 [facility] [place] [facility] [address] [id number] [place] [address] 0653 16 Jun, 2014 [facility] [place] [facility] [address] [id number] [place] [address]- 9176 16 Jun, 2014 [facility] [place] [facility] [address] [id number] [place] [address]- 6851 16 Jun, 2014 [facility] [place] [facility] [address] [id number] [place] [address]- 4205 16 Jun, 2014 [facility] [place] [facility] [address] [id number] [place] [address]- 0948 13 Jun, 2014 [facility] [place] [facility] [address] [id number] [place] [address]- 9519 13 Jun, 2014 [facility] [place] [facility] [address] [id number] [place] [address]- 9675 Jun, 2014 [facility] [place] [facility] [address] [id number] [place] [address]- 6406 Jun, 2014 [facility] [place] [facility] [address] [id number] [place] [address]- 4850 Jun, [facility] [place] [facility] [address] [id number] [place] [address]- 4898 Jun, 2014 [facility] [place] [facility] [address] [id number] [place] [address]- 0959 Jun, 2014 [facility] [place] [facility] [address] [id number] [place] [address]- 2181 Jun, 2014 [facility] [place] [facility] [address] [id number] [place] [address]- 3858 Jun, 2014 [facility] [place] [facility] [address] [id number] [place] [address]- 7274 Jun, 2014 [facility] [place] [facility] [address] [id number] [place] [address]- 9047 Jun, 2014 [facility] [place] [facility] [address] [id number] [place] [address]- 0609 Jun, 2014 [facility] [place] [facility] [address] [id number] [place] [address]- 7978 Jun, [facility] [place] [facility] [address] [id number] [place] [address]- 5044 Jun, [facility] [place] [facility] [address] [id number] [place] [address]- 9112 Jun, [facility] [place] [facility] [address] [id number] [place] [address]- 5769 Jun, [facility] [place] [facility] [address] [id number] [place] [address]- 0866 Jun, [facility] [place] [facility] [address] [id number] [place] [address]- 2859 Jun, [facility] [place] [facility] [address] [facility] [id number] [place] [address]- 4178 Jun, [facility] [place] [facility] [address] [id number] [place] [address]- 1522 Jun, [facility] [place] [facility] [address] [id number] [place] [address]- 0681 May, [facility] [place] [facility] [address] [id number] [place] [address]- 4751 May, [facility] [place] [facility] [address] [facility] [id number] [place] [address]- 2889 May, [facility] [place] [facility] [address] [id number], [place] [address] May, [facility] [place] [facility] [address] [facility] [id number] [place] [address]- 2985 May, [facility] [place] [facility] [address] [id number] [place] [address]- 8694 May, [facility] [place] [facility] [address] [facility] [id number] [place] [address]- 0487 May, [facility] [place] [facility] [address] [facility] [id number] [place] [address]- 2451 20 May, 2014 [facility] [place] [facility] [address] [facility] [id number] [place] [address]- 4256 May, 2014 [facility] [place] [facility] [address] [facility] [id number] [place] [address]- 2546 20 May, 2014 [facility] [place] [facility] [address] [facility] [id number] [place] [address]- 7485 18 May, 2014 [facility] [place] [facility] [address] [facility] [id number] [place] [address]- 2543 18 May, 2014 [facility] [place] [facility] [address] [facility] [id number] [place] [address]- 4335 13 May, 2014 [facility] [place] [facility] [address] [id number] [place] [address]- 2317 13 May, 2014 [facility] [place] [facility] [address] [id number] [place] [address]- 5874 May, 2014 [facility] [place] [facility] [address] [facility] [id number] [place] [address]- 5436 May, 2014 [facility] [place] [facility] [address] [id number] [place] [address]- 4063 May, 2014 [facility] [place] [facility] [address] [id number] [address] 5347 May, 2014 [facility] [place] [facility] [address] [facility] [id number], [place] [address]- 2541 May, 2014 [facility] [place] [facility] [address] [facility] [id number] [place] [address]- 2549 May, 2014 [facility] [place] [facility] [address] [facility] [id number], [place] [address]- 9805 May, 2014 [facility] [place] [facility] [address] [facility] [id number], [place] [address]- 6048 May, 2014 [facility] [place] [facility] [address] [id number], [place] [address]- 5645 May, [facility] [place] [facility] [address] [id number] [place] [address]- 2075 May, [facility] [place] [facility] [address] [id number] [place] [address]- 1164 May, [facility] [place] [facility] [address] [id number] [place] [address]- 5466 May, [facility] [place] [facility] [address] [id number] [place] [address]- 5119 May, [facility] [place] [facility] [address] [id number] [place] [address]- 9461 Apr, [facility] [place] [facility] [address] [id number] [place] [address]- 8763 Apr, [facility] [place] [facility] [address] [id number] [place] [address]- 9998 Apr, [facility] [place] [facility] [address] [id number] [place] [address]- 1964 Apr, [facility] [place] [facility] [address] [id number] [place] [address]- 9332 Apr, [facility] [place] [facility] [address] [id number] [place] [address]- 3039 Apr, [facility] [place] [facility] [address] [id number] [place] [address]- 6236 Apr, [facility] [place] [facility] [address] [id number], [place] [address]- 3471 Apr, [facility] [place] [facility] [address] [id number] [place] [address]- 6508 Apr, [facility] [place] [facility] [address] [id number] [place] [address]- 9888 Apr, [facility] [place] [facility] [address] [id number] [place] [address]- 5561 Apr, [facility] [place] [facility] [address] [id number] [place] [address]- 9395 Apr, [facility] [place] [facility] [address] [id number] [place] [address]- 8493 Apr, [facility] [place] [facility] [address] [id number] [place] [address]- 2170 Apr, [facility] [place] [facility] [address] [id number] [place] [address]- 3363 Apr, [facility] [address] [id number] [place] [address]- 0234 Apr, [facility] [place] [facility] [address] [id number] [place] [address]- 3816 Apr, [facility] [address] [id number] [place] [address]- 5993 Apr, [facility] [address] [id number] [place] [address]- 5894 Apr, [facility] [address] [id number] [place] [address]- 9468 Apr, [facility] [place] [facility] [address] [id number] [place] [address]- 1200 Mar, [facility] [place] [facility] [address] [id number] [place] [address]- 4959 Mar, [facility] [place] [facility] [address] [id number] [place] [address]- 0114 Mar, [facility] [place] [facility] [address] [id number] [place] [address]- 8346 Mar, [facility] [place] [facility] [address] [id number] [place] [address]- 0287 Mar, [facility] [place] [facility] [address] [id number] [place] [address]- 0503 Mar, [facility] [place] [facility] [address] [id number] [place] [address]- 7975 Mar, [facility] [place] [facility] [address] [id number] [place] [address]- 1636 18 Mar, 2014 [facility] [place] [facility] [address] [id number] [place] [address]- 4366 Mar, [facility] [place] [facility] [address] [id number] [place] [address]- 5786 15 Mar, 2014 [facility] [place] [facility] [address] [id number] [place] [address]- 9177 15 Mar, 2014 [facility] [place] [facility] [address] [id number] [place] [address]- 2516 Mar, [facility] [place] [facility] [address] [id number] [place] [address]- 9167 Mar, [facility] [place] [facility] [address] [id number] [place] [address]- 7054 Mar, [facility] [place] [facility] [address] [id number] [place] [address]- 6219 Mar, [facility] [place] [facility] [address] [id number] [place] [address]- 5348 Mar, [facility] [place] [facility] [address] [id number] [place] [address]- 4768 Feb, [facility] [place] [facility] [address] [id number] [place] [address]- 7800 Feb, [facility] [place] [facility] [address] [id number] [place] [address]- 5703 Feb, [facility] [place] [facility] [address] [id number] [place] [address]- 2226 Feb, [facility] [place] [facility] [address] [id number] [place] [address]- 4028 Feb, [facility] [place] [facility] [address] [id number] [place] [address]- 9936 Feb, [facility] [place] [facility] [address] [id number] [place] [address]- 4326 19 Feb, 2014 [facility] [place] [facility] [address] [id number] [place] [address]- 6934 18 Feb, 2014 [facility] [place] [facility] [address] [id number] [place] [address]- 7497 18 Feb, 2014 [facility] [place] [facility] [address] [id number] [place] [address]- 7941 17 Feb, 2014 [facility] [place] [facility] [address] [id number] [place] [address]- 3613 17 Feb, 2014 [facility] [place] [facility] [address] [id number] [place] [address]- 1824 17 Feb, 2014 [facility] [place] [facility] [address] [id number] [place] [address]- 2093 17 Feb, 2014 [facility] [place] [facility] [address] [id number] [place] [address]- 4155 14 Feb, 2014 [facility] [place] [facility] [address] [id number] [place] [address]- 3117 14 Feb, 2014 [facility] [place] [facility] [address] [id number] [place] [address]- 3906 14 Feb, 2014 [facility] [place] [facility] [address] [id number] [place] [address]- 3808 14 Feb, 2014 [facility] [place] [facility] [address] [id number] [place] [address]- 2532 10 Feb, 2014 [facility] [place] [facility] [address] [id number] [place] [address]- 9651 10 Feb, 2014 [facility] [place] [facility] [address] [id number] [place] [address]- 8708 Feb, [facility] [place] [facility] [address] [id number] [place] [address]- 0854 Feb, [facility] [place] [facility] [address] [id number] [place] [address]- 8584 30 Jan, 2014 [facility] [place] [facility] [address] [id number] [place] [address]- 5607 Jan, 2013 [facility] [place] [facility] [address] [id number] [place] [address]- 2332 Jan, 2013 [facility] [place] [facility] [address] [id number] [place] [address]- 4665 Jan, [facility] [place] [facility] [address] [id number] [place] [address]- 8227 Jan, 2013 [facility] [place] [facility] [address] [id number] [place] [address]- 4984 Jan, [facility] [place] [facility] [address] [id number] [place] [address]- 7359 Jan, [facility] [place] [facility] [address] [id number] [place] [address]- 9114 Jan, [facility] [place] [facility] [address] [id number] [place] [address]- 2205 Jan, [facility] [place] [facility] [address] [id number] [place] [address]- 5551 Jan, [facility] [place] [facility] [address] [id number] [place] [address]- 5593 Jan, [facility] [place] [facility] [address] [id number] [place] [address]- 2820 Jan, [facility] [place] [facility] [address] [id number], [place] [address]- 4478 Jan, [facility] [place] [facility] [address] [id number] [place] [address]- 7497 Jan, [facility] [place] [facility] [address] [id number] [place] [address]- 1229 15 Jan, 2014 [facility] [place] [facility] [address] [id number] [place] [address]- 4294 15 Jan, 2014 [facility] [place] [facility] [address] [id number] [place] [address]- 3148 14 Jan, 2014 [facility] [place] [facility] [address] [id number] [place] [address]- 8267 14 Jan, 2014 [facility] [place] [facility] [address] [id number] [place] [address]- 0261 13 Jan, 2014 [facility] [place] [facility] [address] [id number] [place] [address]- 7259 13 Jan, 2014 [facility] [place] [facility] [address] [id number] [place] [address]- 4946 13 Jan, 2014 [facility] [place] [facility] [address] [id number] [place] [address]- 5828 13 Jan, 2014 [facility] [place] [facility] [address] [id number] [place] [address]- 6390 10 Jan, 2014 [facility] [place] [facility] [address] [id number] [place] [address]- 9206 02 Jan, 2014 [facility] [place] [facility] [address] [id number] [place] [address]- 7900 02 Jan, 2014 [facility] [place] [facility] [address] [id number] [place] [address]- 0917 25 Dec, 2013 [facility] [place] [facility] [address] [id number] [place] [address]- 5419 25 Sep, 2013 [facility] [place] [facility] [address] [id number] [place] [address]- 1609 23 Sep, 2013 [facility] [place] [facility] [address] [id number], [place] [address]- 2541 23 Sep, 2013 [facility] [place] [facility] [address] [id number] [place] [address]- 0985 19 Sep, 2013 [facility] [place] [facility] [address] [id number] [place] [address]- 3876 19 Sep, 2013 [facility] [place] [facility] [address] [id number], [place] [address]- 6661 17 Sep, 2013 [facility] [place] [facility] [address] [id number] [place] [address]- 2819 17 Sep, 2013 [facility] [place] [facility] [address] [id number] [place] [address] 2546 09 Sep, 2013 [facility] [place] [facility] [address] [id number] [place] [address] 2546 09 Sep, 2013 [facility] [place] [facility] [address] [id number] [place] [address] 2546 08 Sep, 2013 [facility] [place] [facility] [address] [id number] [place] [address] 2542 08 Sep, 2013 [facility] [place] [facility] [address] [id number] [place] [address]- 8636 04 Dec, 2013 [facility] [place] [facility] [address] [id number] [place] [address]- 7791 04 Dec, 2013 [facility] [place] [facility] [address] [id number] [place] [address]- 5123 02 Dec, 2013 [facility] [place] [facility] [address] [id number] [place] [address]- 4325 Dec, 2013 [facility] [place] [facility] [address] [id number] [place] [address] 254 02 Dec, 2013 [facility] [place] [facility] [address] [id number] [place] [address]- 6347 Dec, 2013 [facility] [place] [facility] [address] [id number] [place] [address]- 2545 Nov, [facility] [place] [facility] [address] [id number] [place] [address] 2546 Nov, [facility] [place] [facility] [address] [id number] [place] [address] 2546 Nov, [facility] [place] [facility] [address] [id number] [place] [address] 2547 Nov, [facility] [place] [facility] [address] [id number] [place] [address]- 6683 Nov, [facility] [place] [facility] [address] [id number] [place] [address]- 1650 Nov, [facility] [place] [facility] [address] [id number] [place] [address]- 3680 Nov, [facility] [place] [facility] [address] [id number] [place] [address]- 9708 Nov, [facility] [place] [facility] [address] [id number] [place] [address]- 7626 Nov, [facility] [place] [facility] [address] [id number] [place] [address]- 4680 Nov, [facility] [place] [facility] [address] [id number] [place] [address]- 4766 Nov, [facility] [place] [facility] [address] [id number] [place] [address]- 5246 Nov, [facility] [place] [facility] [address] [id number] [place] [address]- 0925 Oct, [facility] [place] [facility] [address] [id number] [place] [address]- 0915 Oct, [facility] [place] [facility] [address] [id number] [place] [address]- 4439 Oct, [facility] [place] [facility] [address] [id number] [place] [address]- 4562 Oct, [facility] [place] [facility] [address] [id number] [place] [address]- 5705 Oct, [facility] [place] [facility] [address] [id number] [place] [address]- 0729 Oct, [facility] [place] [facility] [address] [id number] [place] [address]- 2799 Oct, [facility] [place] [facility] [address] [id number] [place] [address]- 6764 Oct, [facility] [place] [facility] [address] [id number] [place] [address]- 2657 22 Oct, 2013 [facility] [place] [facility] [address] [id number] [place] [address]- 4055 22 Oct, 2013 [facility] [place] [facility] [address] [id number] [place] [address]- 2108 16 Oct, 2013 [facility] [place] [facility] [address] [id number] [place] [address]- 4586 16 Oct, 2013 [facility] [place] [facility] [address] [id number] [place] [address]- 9630 14 Oct, 2013 [facility] [place] [facility] [address] [id number] [place] [address]- 0786 14 Oct, 2013 [facility] [place] [facility] [address] [id number] [place] [address]- 7505 13 Oct, 2013 [facility] [place] [facility] [address] [id number] [place] [address]- 6855 13 Oct, 2013 [facility] [place] [facility] [address] [id number] [place] [address]- 9231 Oct, [facility] [place] [facility] [address] [id number] [place] [address]- 9169 27 Sep, 2013 [facility] [place] [facility] [address] [id number] [place] [address]- 6105 27 Sep, 2013 [facility] [place] [facility] [address] [id number] [place] [address]- 9508 Sep, [facility] [place] [facility] [address] [id number] [place] [address]- 9404 20 Sep, 2013 [facility] [place] [facility] [address] [id number] [place] [address]- 5070 18 Sep, 2013 [facility] [place] [facility] [address] [id number] [place] [address]- 1084 18 Sep, 2013 [facility] [place] [facility] [address] [id number] [place] [address]- 7030 Sep, [facility] [place] [facility] [address] [id number] [place] [address]- 5940 17 Sep, 2013 [facility] [place] [facility] [address] [id number] [place] [address]- 0034 Sep, [facility] [place] [facility] [address] [id number] [place] [address] Sep, [facility] [place] [facility] [address] [id number] [place] [address] Sep, [facility] [place] [facility] [address] [id number] [place] [address] Sep, [facility] [place] [facility] [address] [id number] [place] [address] Sep, [facility] [place] [facility] [address] [id number] [place] [address] Sep, [facility] [place] [facility] [address] [id number] [place] [address] Sep, [facility] [place] [facility] [address] [id number] [place] [address] Sep, [facility] [place] [facility] [address] [id number] [place] [address] Sep, [facility] [place] [facility] [address] [id number] [place] [address] Sep, [facility] [place] [facility] [address] [id number] [place] [address] Sep, [facility] [place] [facility] [address] [id number] [place] [address] 8448 Sep, [facility] [place] [facility] [address] [id number] [place] [address]66 Sep, [facility] [place] [facility] [address] [id number] [place] [address] Sep, [facility] [place] [facility] [address] [id number] [place] [address] August, [facility] [address] [id number] [place] [address] August, [facility] [place] [facility] [address] [id number] [place] [address] August, [facility] [place] [facility] [address] [id number] [place] [address] August, [facility] [place] [facility] [address] [id number] [place] [address] August, [facility] [place] [facility] [address] [id number] [place] [address] 16[address] August, [facility] [place] [facility] [address] [id number] [place] [address] August, [facility] [place] [facility] [address] [id number] [place] [address] August, [facility] [place] [facility] [address] [id number] [place] [address] 37[address] August, [facility] [place] [facility] [address] [id number] [place] [address] August, [facility] [place] [facility] [address] [id number] [place] [address] August, [facility] [place] [facility] [address] [id number] [place] [address] Jul, [facility] [place] [facility] [address] [id number] [place] [address] Jul, [facility] [place] [facility] [address] [id number] [place] [address] Jul, [facility] [place] [facility] [address] [id number] [place] [address] 42[address] Jul, [facility] [place] [facility] [address] [id number] [place] [address]183 Jul, [facility] [place] [facility] [address] [id number] [place] [address]- 7867 23 Jul, 2013 [facility] [address] [id number] [place] [address] Jul, [facility] [place] [facility] [address] [id number] [place] [address] Jul, [facility] [address] [id number] [place] [address] Jul, [facility] [place] [facility] [address] [id number] [place] [address] 18 Jul, 2013 [facility] [address] [id number] [place] [address] 16 Jul, 2013 [facility] [place] [facility] [address] [id number] [place] [address] 14 Jul, 2013 [facility] [place] [facility] [address] [id number] [place] [address]- 7100 14 Jul, 2013 [facility] [address] [id number] [place] [address] Jul, [facility] [place] [facility] [address] [id number] [place] [address]- [address] 11 Jul, 2013 [facility] [address] [id number] [place] [address]676 10 Jul, 2013 [facility] [place] [facility] [address] [id number] [place] [address]- 9[address] 10 Jul, 2013 [facility] [place] [facility] [address] [id number] [place] [address]- [address] 05 Jul, 2013 [facility] [place] [facility] [address] [id number] [place] [address]- [address] 05 Jul, 2013 [facility] [place] [facility] [address] [id number] [place] [address]- [address] Jul, [facility] [place] [facility] [address] [id number] [place] [address]- 3517 Jul, [facility] [place] [facility] [address] [id number] [place] [address] 2215 Jul, [facility] [place] [facility] [address] [id number] [place] [address]- 12[address] Jul, [facility] [place] [facility] [address] [id number] [place] [address]- [address] Jun, [facility] [place] [facility] [address] [id number] [place] [address]- 0344 Jun, [facility] [place] [facility] [address] [id number] [place] [address]- 9258 Jun, [facility] [place] [facility] [address] [id number] [place] [address]- [address]19 Jun, [facility] [place] [facility] [address] [id number] [place] [address]- 96[address] Jun, [facility] [place] [facility] [address] [id number] [place] [address]- 7278 Jun, [facility] [place] [facility] [address] [id number] [place] [address]- 1386 Jun, [facility] [place] [facility] [address] [id number] [place] [address]- 4727 Jun, [facility] [place] [facility] [address] [id number] [place] [address]- 5028 Jun, [facility] [place] [facility] [address] [id number] [place] [address]- 379[address] Jun, [facility] [place] [facility] [address] [id number] [place] [address]- 1833 Jun, [facility] [place] [facility] [address] [id number] [place] [address]- [address] Jun, [facility] [place] [facility] [address] [id number] [place] [address] 18 May, 2013 [facility] [place] [facility] [address] [id number] [place] [address]- 65[address] May, [facility] [address] [id number] [place] [address]- 8191 Apr, [facility] [place] [facility] [address] [id number] [place] [address]- 6322 Apr, [facility] [place] [facility] [address] [id number] [place] [address]- 7225 Apr, [facility] [place] [facility] [address] [id number] [place] [address]- 1598 Apr, [facility] [place] [facility] [address] [id number] [place] [address]- 7001 Apr, [facility] [place] [facility] [address] [id number] [place] [address]- 6522 Apr, [facility] [place] [facility] [address] [id number] [place] [address]- [address]229 Apr, [facility] [place] [facility] [address] [id number] [place] [address]- 9268 Apr, [facility] [place] [facility] [address] [id number] [place] [address]- 7021 Apr, [facility] [place] [facility] [address] [id number] [place] [address]- 2341 Apr, [facility] [place] [facility] [address] [id number] [place] [address]- 1870 Apr, [facility] [place] [facility] [address] [id number] [place] [address] Mar, [facility] [place] [facility] [address] [id number] [place] [address] Mar, [facility] [place] [facility] [address] [id number] [place] [address] 1174 Mar, [facility] [place] [facility] [address] [id number] [place] [address] Mar, [facility] [place] [facility] [address] [id number] [place] [address] 5[address] Feb, [facility] [place] [facility] [address] [id number] [place] [address] 2145 Feb, [facility] [place] [facility] [address] [id number] [place] [address] 4240 Feb, [facility] [place] [facility] [address] [id number] [place] [address] 6814 Feb, [facility] [place] [facility] [address] [id number] [place] [address] Feb, [facility] [place] [facility] [address] [id number] [place] [address] 1032 Feb, [facility] [place] [facility] [address] [id number] [place] [address] 1928 Feb, [facility] [place] [facility] [address] [id number] [place] [address] 2267 Feb, [facility] [place] [facility] [address] [id number] [place] [address] 1926 Feb, [facility] [place] [facility] [address] [id number] [place] [address] 0170 Feb, [facility] [place] [facility] [address] [id number] [place] [address] 1334 Feb, [facility] [place] [facility] [address] [id number], [place] [address] Jan, [facility] [place] [facility] [address] [id number] [place] [address] 23[address] Jan, [facility] [place] [facility] [address] [id number] [place] [address]- 3371 Jan, [facility] [place] [facility] [address] [id number] [place] [address]- 5153 Jan, [facility] [place] [facility] [address] [id number], [place] [address] 10 Jan, 2013 [facility] [place] [facility] [address] [id number] [place] [address]- 1148 10 Jan, 2013 [facility] [place] [facility] [address] [id number] [place] [address]- 5146 03 Jan, 2013 [facility] [place] [facility] [address] [id number] [place] [address]- 8849 02 Jan, 2013 [facility] [place] [facility] [address] [id number] [place] [address]- 3943 30 Dec, 2012 [facility] [place] [facility] [address] [id number] [place] [address]- 4694 25 Dec, 2012 [facility] [place] [facility] [address] [id number] [place] [address]- 5606 18 Dec, 2012 [facility] [place] [facility] [address] [id number] [place] [address]- 8761 17 Dec, 2012 [facility] [place] [facility] [address] [id number] [place] [address]- 7477 17 Dec, 2012 [facility] [place] [facility] [address] [id number] [place] [address]- 2422 16 Dec, 2012 [facility] [place] [facility] [address] [id number] [place] [address] 5241 13 Dec, 2012 [facility] [place] [facility] [address] [id number], [place] [address] 5[address] 11 Dec, 2012 [facility] [place] [facility] [address] [id number], [place] [address] 05 Dec, 2012 [facility] [place] [facility] [address] [id number] [place] [address]- 7486 04 Dec, 2012 [facility] [place] [facility] [address] [id number] [place] [address]- 5402 30 Nov, 2012 [facility] [place] [facility] [address] [id number] [place] [address]- 7527 29 Nov, 2012 [facility] [place] [facility] [address] [id number] [place] [address]- 3127 22 Nov, 2012 [facility] [address] [id number] [place] [address]- 1493 16 Nov, 2012 [facility] [place] [facility] [address] [id number] [place] [address] 9068 14 Nov, 2012 [facility] [address] [id number] [place] [address] 3929 Nov, [facility] [place] [facility] [address] [id number] [place] [address]- 5719 05 Nov, 2012 [facility] [address] [id number] [place] [address]- 5383 29 Oct, 2012 [facility] [address] [id number] [place] [address] 0348 Oct, [facility] [address] [id number] [place] [address]- 1107 24 Oct, 2012 [facility] [address] [id number] [place] [address] 8424 17 Oct, 2012 [facility] [place] [facility] [address] [id number] [place] [address]- 0804 15 Oct, 2012 [facility] [address] [id number] [place] [address]- 1160 Oct, [facility] [place] [facility] [address] [id number] [place] [address] 6802 28 Sep, 2012 [facility] [place] [facility] [address] [id number] [place] [address] 3429 28 Sep, 2012 [facility] [place] [facility] [address] [id number] [place] [address]- 0253 27 Sep, 2012 [facility] [place] [facility] [address] [id number] [place] [address]- 4635 14 Sep, 2012 [facility] [place] [facility] [address] [id number] [place] [address]- 8911 13 Sep, 2012 [facility] [address] [id number] [place] [address] 7806 Sep, [facility] [address] [id number] [place] [address]- 0956 Sep, [facility] [address] [id number] [place] [address]- 4926 Sep, [facility] [address] [id number] [place] [address]- 7546 Sep, [facility] [address] [id number] [place] [address]- 5116 August, [facility] [address] [id number] [place] [address]- 0896 August, [facility] [address] [id number] [place] [address] 3846 August, [facility] [address] [id number] [place] [address]- 8666 August, [facility] [address] [id number] [place] [address]- 2126 August, [facility] [address] [id number] [place] [address] 6016 August, [facility] [address] [id number] [place] [address] 1406 August, [facility] [address] [id number] [place] [address]- 7776 August, [facility] [address] [id number] [place] [address]- 5446 Jul, [facility] [address] [id number] [place] [address]- 3466 Jul, [facility] [address] [place] [id number] Jul [facility] [address] [id number] [place] [address]- 4155 Jun, [facility] [place] [facility] [address] [id number] [place] [address]- 6487 Jun, [facility] [place] [facility] [address] [id number] [place] [address]- 9265 Jun, [facility] [place] [facility] [address] [id number] [place] [address]- 6228 Jun, [facility] [place] [facility] [address] [id number] [place] [address]- 3210 Jun, [facility] [place] [facility] [address] [id number] [place] [address]- 4688 Jun, [facility] [place] [facility] [address] [id number] [place] [address]- 6331 May, [facility] [place] [facility] [address] [id number] [place] [address]- 0925 May, [facility] [place] [facility] [address] [id number] [place] [address]- 0372 May, [facility] [place] [facility] [address] [id number] [place] [address]- 7276 May, [facility] [place] [facility] [address] [id number] [place] [address]- 4763 May, [facility] [place] [facility] [address] [id number] [place] [address]- 5122 Apr, [facility] [place] [facility] [address] [id number] [place] [address]- 6711 Apr, [facility] [place] [facility] [address] [id number] [place] [address]- 8457 Apr, [facility] [place] [facility] [address] [id number] [place] [address]- 0429 Apr, [facility] [place] [facility] [address] [id number] [place] [address]- 0072 Apr, [facility] [place] [facility] [address] [id number] [place] [address]- 3531 Apr, [facility] [address] [id number] [place] [address]- 0994 Mar, [facility] [address] [id number] [place] [address]- 9516 Mar, [facility] [address] [id number] [place] [address]- 9866 Mar, [facility] [address] [id number] [place] [address]- 3102 Mar, [facility] [address] [id number] [place] [address]- 1848 Mar, [facility] [address] [id number] [place] [address]- 9843 Mar, [facility] [address] [id number] [place] [address]- 0131 Mar, [facility] [address] [id number] [place] [address]- 5617 Mar, [facility] [address] [id number] [place] [address]- 6524 Mar, [facility] [address] [id number] [place] [address]- 6083 Mar, [facility] [address] [id number] [place] [address]- 7013 Mar, [facility] [address] [id number] [place] [address]- 4757 Feb, [facility] [place] [facility] [address] [id number] [place] [address]- 9345 Feb, [facility] [address] [id number] [place] [address]- 8978 Feb, [facility] [address] [id number] [place] [address] Feb, [facility] [place] [facility] [address] [id number] [place] [address]- 9440 Feb, [facility] [place] [facility] [address] [id number] [place] [address]- 0107 Feb, [facility] [place] [facility] [address] [id number] [place] [address]- 8152 Feb, [facility] [place] [facility] [address] [id number] [place] [address]- 4512 Feb, [facility] [place] [facility] [address] [id number] [place] [address]- 0459 Feb, [facility] [place] [facility] [address] [id number] [place] [address]- 5580 Feb, [facility] [place] [facility] [address] [id number] [place] [address]- 0400 Feb, [facility] [place] [facility] [address] [id number], [place] [address]- 8963 Jan, [facility] [place] [facility] [address] [id number], [place] [address]- 6901 Jan, [facility] [place] [facility] [address] [facility] [id number], [place] [address]- 6198 Jan, [facility] [place] [facility] [address] [id number], [place] [address]- 2185 Jan, [facility] [place] [facility] [address] [id number], [place] [address]- 0098 Jan, [facility] [place] [facility] [address] [id number], [place] [address]- 4465 Jan, [facility] [place] [facility] [address] [id number], [place] [address]- 6812 Jan, [facility] [place] [facility] [address] [facility] [id number], [place] [address]- 0222 24 Dec, 2011 [facility] [place] [facility] [address] [id number], [place] [address]- 5850 17 Dec, 2011 [facility] [place] [facility] [address] [id number] [place] [address]- 0944 13 Dec, 2011 [facility] [place] [facility] [address] [id number] [place] [address]- 5822 12 Dec, 2011 [facility] [place] [facility] [address] [id number] [place] [address]- 2348 23 Nov, 2011 [facility] [place] [facility] [address] [id number] [place] [address]- 7884 20 Nov, 2011 [facility] [place] [facility] [address] [id number] [place] [address]- 3486 Nov, [facility] [place] [facility] [address] [id number] [place] [address]- 0731 15 Nov, 2011 [facility] [place] [facility] [address] [id number] [place] [address]- 1396 14 Nov, 2011 [facility] [place] [facility] [address] [id number] [place] [address]- 5700 Nov, [facility] [place] [facility] [address] [id number] [place] [address]- 4175 Nov, [facility] [place] [facility] [address] [id number] [place] [address]- 6220 Nov, [facility] [place] [facility] [address] [id number] [place] [address]- 4499 Nov, [facility] [place] [facility] [address] [id number] [place] [address]- 8068 Nov, [facility] [place] [facility] [address] [id number] [place] [address]- 1994 Nov, [facility] [place] [facility] [address] [id number] [place] [address]- 7818 Nov, [facility] [place] [facility] [address] [id number] [place] [address]- 2752 Nov, [facility] [place] [facility] [address] [id number] [place] [address]- 3407 Oct, 2011 [facility] [place] [facility] [address] [id number] [place] [address]- 5076 Oct, [facility] [place] [facility] [address] [id number] [place] [address] 2546 Oct, 2011 [facility] [place] [facility] [address] [id number] [place] [address] 2546 Oct, [facility] [place] [facility] [address] [id number] [place] [address]- 5589 Oct, [facility] [place] [facility] [address] [id number] [place] [address]- 9116 Oct, [facility] [place] [facility] [address] [id number] [place] [address]- 8090 Oct, [facility] [place] [facility] [address] [id number] [place] [address]- 6176 Oct, [facility] [place] [facility] [address] [id number] [place] [address]- 2647 Oct, [facility] [place] [facility] [address] [id number] [place] [address]- 0580 Sep, [facility] [place] [facility] [address] [id number] [place] [address]- 2604 Sep, [facility] [place] [facility] [address] [id number] [place] [address]- 1486 Sep, [facility] [place] [facility] [address] [id number] [place] [address] 2544 Sep, [facility] [place] [facility] [address] [id number] [place] [address]- 3276 Sep, [facility] [place] [facility] [address] [id number] [place] [address] 2546 Sep, [facility] [place] [facility] [address] [id number] [place] [address]- 1551 Sep, [facility] [address] [id number], [place] [address]- 9493 Sep, [facility] [id number], [place] [address]- 2306 August, [facility] [address] [id number], [place] [address]- 8331 August, [facility] [address] [id number], [place] [address]- 5872 August, [facility] [address] [id number], [place] [address]- 3584 August, [facility] [id number], [place] [address]- 8713 August, [facility] [id number], [place] [address]- 7210 August, [facility] [id number], [place] [address]- 9304 August, [facility] [id number], [place] [address]- 6562 August, [facility] [id number], [place] [address]- 1539 August, [facility] [id number], [place] [address]- 2405 August, [facility] [address] [id number], [place] [address]- 2303 August, [facility] [address] [id number], [place] [address]- 3326 August, [facility] [id number], [place] [address]- 4204 Oct, IMMUNIZATIONS No Known Immunizations SOCIAL HISTORY Never Assessed REASON FOR VISIT [facility] PLAN OF CARE Activity Details Follow Up Not rescheduled with me. Reason:Depression, anxiety, VITAL SIGNS MEDICATIONS Medication Instructions Dosage Frequency Start Date End Date Duration Status Potassium Chloride Eugenia ER 10 MEQ Orally Once a day 1 tablet with food 24h Unknown Lasix 40 MG Orally Once a day 1 tablet 24h Unknown Metformin HCl 1000 MG Orally Twice a day 1 tablet with meals 12h Unknown Ondansetron HCl 4 MG Orally 3 times a day 1 tablet as needed 8h Unknown Ranitidine HCl 150 MG Orally twice a day 1 tablet 12h Unknown Womens One Daily - Unknown Atorvastatin Calcium 40 MG Orally Once a day 1 tablet 24h Unknown Guaifenesin 400 MG Orally every 4 hrs 1 tablet as needed 4h May, Unknown Triamcinolone Acetonide 0.025 % Externally Twice a day 1 application to affected area as needed 12h Jul, Unknown Cyclobenzaprine HCl 10 MG Orally Three times a day 1 tablet as needed 8h Unknown Gemfibrozil 600 MG Orally Twice a day 1 tablet 12h Unknown Sucralfate 1 GM Orally 4 times a day 1 tablet at bedtime on an empty stomach before meals 6h Unknown Benadryl Allergy 25 MG Orally 2 times a day 1 capsule 12h Unknown Ibuprofen 600 MG Orally Three times a day 1 tablet with food or milk as needed 8h Jul, 30 days Unknown Triamcinolone Acetonide 0.1 % Externally Twice a day 1 application to affected area as needed 12h Unknown Lyrica 150 MG Orally twice a day 2 capsules 12h Unknown Lotrisone 1-0.05 % Externally Twice a day 1 application to affected area 12h Unknown Montelukast Sodium 10 MG Orally Once a day 1 tablet in the evening 24h Unknown Mirtazapine 30 MG Orally Once a day 1 tablet at bedtime 24h May, 30 day(s) Unknown RESULTS No Results PROCEDURES Procedure Date Ordered Result Body Site Psych diagnostic evaluation, new patient July 24, 2017 INSTRUCTIONS MEDICATIONS ADMINISTERED No Known Medications MEDICAL [...] Surgical History bladder surgery Hospitalization History [facility] for right groin pain 05/2011 Hospitalization History [facility] for wound on buttocks 08/2012 Hospitalization History [facility], hypoxia secondary to pneumonia 12/02-12/09 Hospitalization History Pneumonia, elevated CO2 on Bipap was in ICU 08/2013 Hospitalization History Hypoxia, Exacerbation COPD, Chest pain 09/05/15 Hospitalization History suicidal ideations-[facility] 12/28 Hospital[facility] History [facility] 02/13/2016 Hospitalization History shortness of breath at june 2016 Hospitalization History Shortness of breath at august 2016 Hospitalization History SOB, chest pain at 12/2016
--- OUTSIDE RECORDS SUMMARY | 2017-11-24 17:30 | XMS REPORT ---
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 Mar, Unspecified mood [affective] disorder F39 [facility] [address] [facility] [id number], [place] [address]- 3316 Mar, [facility] [address] [facility] [id number], [place] [address]- 4306 Mar, [facility] [address] [facility] [id number], [place] [address]- 1671 Mar, [facility] [address] [facility] [id number], [place] [address]- 2473 Mar, [facility] [address] [facility] [id number], [place] [address]- 1520 Mar, [facility] [address] [facility] [id number], [place] [address]- 0849 Mar, [facility] [id number], [place] [address]- 4462 Feb, Unspecified mood [affective] disorder F39 [facility] [address] [facility] [id number], [place] [address]- 5709 Feb, [facility] [id number], [place] [address]- 5398 Feb, [facility] [address], [place] [address]- 0586 Jan, Unspecified mood [affective] disorder F39 [facility] [id number] [id number] [id number] Jan, Encounter for dental examination Z01.20 [facility] [address], [place] [address]- 6134 Jan, [facility] [address], [place] [address]- 4401 Jan, [facility] [address], [place] [address]- 5226 Jan, [facility] [address], [place] [address]- 0159 Jan, [facility] [id number] [place] [address] 73762- 3610 Jan, [facility] [address] 80153- 5039 Jan, Abdominal abscess K65.1 and Dental caries K02.9 [facility] [address] 07868- 0487 Jan, [facility] [address] 80506- 9232 30 Dec, 2014 Diabetes with neurological manifestations, type II or unspecified type, not stated as uncontrolled 250.60 ; Essential hypertension, benign 401.1 ; Concussion 850.9 and Skin texture changes 782.8 [facility] [address] 33109- 2781 Dec, [facility] [address] 73637- 5205 Dec, [facility] [id number] [place] [address] 56285- 5080 Dec, [facility] [address] 60485- 1230 Dec, [facility] [id number] [place] [address] 50271- 4270 17 Dec, 2014 Affective disorder 296.90 [facility] [address] 85768- 0618 14 Dec, 2014 [facility] [id number] [place] [address] 62818- 3008 10 Dec, 2014 Affective disorder 296.90 [facility] [address] 16577- 9206 04 Dec, 2014 [facility] [id number] [place] [address] 79870- 2764 Dec, [facility] [address] [place] [address] 2546 Dec, [facility] [address], [place] [address] 2546 Dec, [facility] [address] [place] [address] 90090 2546 Nov, Affective disorder 296.90 [facility] [address] [place] [address] 55210 2546 Nov, [facility] [id number] [place] [address] 61766 2546 Nov, Affective disorder 296.90 [facility] [id number] [place] [address] 51513 2546 Nov, Diarrhea 787.91 [facility] [address] [place] [address] 71675 2546 Nov, [facility] [address] [place] [address] 31809 2546 Nov, Diarrhea 787.91 [facility] [id number] [place] [address] 96160 2546 Nov, Diarrhea 787.91 and Hyperlipidemia 272.4 [facility] [address], [place] [address] 2546 Nov, Diarrhea 787.91 [facility] [address] [place] [address] 64533 2546 Nov, Affective disorder 296.90 [facility] [address], [place] [address] 2546 Nov, Affective disorder 296.90 [facility] [address] [place] [address] 72162 2546 Nov, Affective disorder 296.90 [facility] [address], [place] [address] 2546 Nov, [facility] [address], [place] [address]- 1045 Nov, [facility] [address], [place] [address]- 5733 Nov, [facility] [address], [place] [address]- 3474 Nov, Episodic mood disorder 296.90 [facility] [address], [place] [address]- 9776 Nov, [facility] [id number] [place] [address] 35096- 5483 Nov, [facility] [id number] [place] [address] 32504- 6898 Nov, [facility] [id number] [place] [address] 41835- 9013 Nov, [facility] [id number] [place] [address] 37256- 4001 Nov, [facility] [address], [place] [address]- 8091 Nov, Lymphedema 457.1 ; Hyperlipidemia 272.4 ; Essential hypertension, benign 401.1 and Numbness of toes 782.0 [facility] [address], [place] [address]- 7353 Nov, Episodic mood disorder 296.90 [facility] [address], [place] [address]- 3250 Oct, [facility] [address], [place] [address]- 6524 Oct, [facility] [id number], [place] [address]- 4970 Oct, [facility] [address], [place] [address]- 5171 Oct, [facility] [address], [place] [address]- 7767 Oct, [facility] [address] [facility] [id number] [place] [address]- 6872 Oct, 2014 [facility] [address] [facility] [id number] [place] [address]- 6991 Oct, [address] [facility] [address] [facility] [id number] [place] [address]- 6661 Oct, 2014 [facility] [address] [facility] [id number] [place] [address]- 8164 Oct, Episodic mood disorder 296.[address] [facility] [address] [facility] [id number] [place] [address]- 0070 30 Sep, [address] [facility] [address] [facility] [id number], [place] [address]- [address] Sep, [facility] [id number] [place] [address]- [address] Sep, [facility] [address] [facility] [id number], [place] [address]- [address] Sep, [facility] [address] [facility] [id number], [place] [address]- [address] Sep, [facility] [address] [facility] [id number], [place] [address]- 3998 Sep, Episodic mood disorder 296.[address] [facility] [address], [place] [address]- 3968 Sep, Unspecified episodic mood disorder 296.[address] [facility] [address] [facility] [id number], [place] [address]- [address] Sep, [facility] [address] [facility] [id number] [place] [address]- [address] Sep, [facility] [address] [facility] [id number][place] [address]- 1844 16 Sep, 2014 Episodic mood disorder 296.[address] [facility] [id number], [place] [address]- 4528 Sep, [facility] [address], [place] [address]- 9349 Sep, [facility] [id number] [place] [address] 759934- 6327 Sep, [facility] [id number] [place] [address] 35187- 4119 Sep, Hematemesis 578.0 and Vomiting 787.03 [facility] [id number] [place] [address] 87105- 6476 Sep, Episodic mood disorder 296.90 [facility] [id number] [place] [address] 62706- 1362 Sep, [facility] [id number] [place] [address] 32419- 0475 Sep, [facility] [id number] [place] [address] 06365- 6678 Sep, Diabetes mellitus without mention of complication, type II or unspecified type, not stated as uncontrolled 250.00 and Other chronic pain 338.29 [facility] [id number] [place] [address] 04074- 7088 Sep, Episodic mood disorder 296.90 [facility] [id number] [place] [address] 87405- 6998 Sep, [facility] [id number] [place] [address] 13666- 0338 Sep, Episodic mood disorder 296.90 [facility] [id number] [place] [address] 66416- 4787 Sep, [facility] [id number] [place] [address] 07014- 9680 August, [facility] [id number] [place] [address] 75067- [address] August, [facility] [id number] [address] August, Episodic mood disorder 296.[address] [facility] [id number] [place] [address] August, [facility] [id number] [address] August, Unspecified episodic mood disorder 296.[address] [facility] [id number] [place] [address] August, Vomiting 787.03 [facility] [id number] [address] [address] August, [facility] [id number] [address] [address] August, [facility] [id number] [place] [address] [address] August, [facility] [id number], [place] [address] [address] August, [facility] [id number] [place] [address] August, [facility] [id number] [address] Jul, [facility] [id number], [place] [address] [address] Jul, [facility] [id number] [address] Jul, [facility] [place] [facility] [id number] [place] [address]- 1663 Jun, [facility] [place] [facility] [address] [id number] [address] Jun, [facility] [place] [facility] [id number] [address] Jun, [facility] [address] [id number] [address] 30 Jun, 2014 [facility] [place] [facility] [address] [id number] [place] [address]- [address] 30 Jun, 2014 [facility] [place] [facility] [address] [id number] [place] [address]- 9590 Jun, [facility] [place] [facility] [address] [id number] [place] [address]- 8708 Jun, [facility] [place] [facility] [address] [id number] [place] [address]- [address]64 Jun, [facility] [place] [facility] [address] [id number] [place] [address]- 2003 Jun, [facility] [place] [facility] [address] [id number] [place] [address]- 8848 Jun, [facility] [place] [facility] [address] [id number] [place] [address]- [address]185 Jun, [facility] [place] [facility] [address] [id number] [place] [address]- [address] Jun, [facility] [place] [facility] [address] [id number] [place] [address]- [address] Jun, [facility] [place] [facility] [address] [id number] [place] [address]- [address] Jun, [facility] [place] [facility] [address] [id number] [place] [address]- [address] Jun, [facility] [place] [facility] [address] [id number] [place] [address] Jun, [facility] [place] [facility] [address] [id number] [place] [address] 80[address] Jun, [facility] [place] [facility] [address] [id number] [place] [address] 8641 Jun, [facility] [place] [facility] [address] [id number] [place] [address] 5632 Jun, [facility] [place] [facility] [address] [id number] [place] [address] 0011 21 Jun, 2014 [facility] [place] [facility] [address] [id number] [place] [address]- 9206 21 Jun, 2014 [facility] [place] [facility] [address] [id number] [place] [address]- 6966 20 Jun, 2014 [facility] [place] [facility] [address] [id number] [place] [address]- 1766 20 Jun, 2014 [facility] [place] [facility] [address] [id number] [place] [address] 8487 20 Jun, 2014 [facility] [place] [facility] [address] [id number] [place] [address]- 8412 20 Jun, 2014 [facility] [place] [facility] [address] [id number] [place] [address]- 1806 19 Jun, 2014 [facility] [place] [facility] [address] [id number] [place] [address]- 4661 19 Jun, 2014 [facility] [place] [facility] [address] [id number] [place] [address]- 2961 18 Jun, 2014 [facility] [place] [facility] [address] [id number] [place] [address]- 6125 18 Jun, 2014 [facility] [place] [facility] [address] [id number] [place] [address]- 1017 17 Jun, 2014 [facility] [place] [facility] [address] [id number] [place] [address]- 4398 17 Jun, 2014 [facility] [place] [facility] [address] [id number] [place] [address]- 2691 16 Jun, 2014 [facility] [place] [facility] [address] [id number] [place] [address]- 6226 16 Jun, 2014 [facility] [place] [facility] [address] [id number] [place] [address]- 9365 16 Jun, 2014 [facility] [place] [facility] [address] [id number] [place] [address]- 0952 16 Jun, 2014 [facility] [place] [facility] [address] [id number] [place] [address]- 4371 16 Jun, 2014 [facility] [place] [facility] [address] [id number] [place] [address]- 0785 16 Jun, 2014 [facility] [place] [facility] [address] [id number] [place] [address]- 2253 Jun, [facility] [place] [facility] [address] [id number] [place] [address]- 2926 13 Jun, 2014 [facility] [place] [facility] [address] [id number] [place] [address]- 0738 Jun, [facility] [place] [facility] [address] [id number] [place] [address]- 9952 Jun, [facility] [place] [facility] [address] [id number] [place] [address]- 9675 Jun, 2014 [facility] [place] [facility] [address] [id number] [place] [address]- 3407 Jun, 2014 [facility] [place] [facility] [address] [id number] [place] [address]- 2397 Jun, [facility] [place] [facility] [address] [id number] [place] [address]- 0747 Jun, 2014 [facility] [place] [facility] [address] [id number], [place] [address]- 5763 Jun, 2014 [facility] [place] [facility] [address] [id number], [place] [address]- 3884 Jun, 2014 [facility] [place] [facility] [address] [id number] [place] [address]- 3954 Jun, 2014 [facility] [place] [facility] [address] [id number] [place] [address]- 7492 Jun, 2014 [facility] [place] [facility] [address] [id number] [place] [address]- 1784 Jun, 2014 [facility] [place] [facility] [address] [facility] [id number] [place] [address]- 6397 Jun, [facility] [place] [facility] [address] [id number] [place] [address]- 0612 Jun, [facility] [place] [facility] [address] [id number] [place] [address]- 9237 Jun, 2014 [facility] [place] [facility] [address] [facility] [id number] [place] [address]- 2780 Jun, [facility] [place] [facility] [address] [facility] [id number] [place] [address]- 4896 Jun, [facility] [place] [facility] [address] [id number] [place] [address]- 8407 Jun, [facility] [place] [facility] [address] [facility] [id number] [place] [address]- 5530 Jun, [facility] [place] [facility] [address] [facility] [id number] [place] [address]- 3431 May, [facility] [place] [facility] [address] [facility] [id number] [place] [address]- 1342 May, [facility] [place] [facility] [id number] [place] [address]- 0089 May, [facility] [place] [facility] [id number] [place] [address]- 2409 May, [facility] [place] [facility] [address] [facility] [id number] [place] [address]- 0922 May, 2014 [facility] [place] [facility] [address] [facility] [id number] [place] [address]- 2543 May, [facility] [place] [facility] [address] [facility] [id number] [place] [address]- 0510 May, [facility] [place] [facility] [address] [facility] [id number], [place] [address]- 7498 May, 2014 [facility] [place] [facility] [address] [id number], [place] [address]- 4203 May, 2014 [facility] [place] [facility] [address] [facility] [id number] [place] [address]- 2134 20 May, 2014 [facility] [place] [facility] [address] [facility] [id number] [place] [address]- 9346 18 May, 2014 [facility] [place] [facility] [address] [facility] [id number] [place] [address]- 7109 18 May, 2014 [facility] [place] [facility] [address] [facility] [id number] [place] [address]- 9830 13 May, 2014 [facility] [place] [facility] [address] [facility] [id number] [place] [address]- 4479 13 May, 2014 [facility] [place] [facility] [id number] [place] [address]- 0563 11 May, 2014 [facility] [place] [facility] [id number] [place] [address]- 9999 May, 2014 [facility] [place] [facility] [address] [facility] [id number] [place] [address]- 2542 May, 2014 [facility] [place] [facility] [address] [facility] [id number] [place] [address]- 9045 May, 2014 [facility] [place] [facility] [address] [facility] [id number], [place] [address]- 2830 09 May, 2014 [facility] [place] [facility] [address] [facility] [id number] [place] [address]- 2546 May, 2014 [facility] [place] [facility] [address] [facility] [id number], [place] [address]- 2548 May, 2014 [facility] [place] [facility] [address] [facility] [id number] [place] [address]- 9312 May, 2014 [facility] [place] [facility] [address] [facility] [id number], [place] [address]- 2545 May, 2014 [facility] [place] [facility] [id number] [place] [address]- 0784 May, [facility] [place] [facility] [address] [id number] [place] [address]- 1235 May, [facility] [place] [facility] [address] [id number] [place] [address]- 5500 May, [facility] [place] [facility] [address] [id number] [place] [address]- 0564 May, [facility] [place] [facility] [address] [id number] [place] [address]- 3706 Apr, [facility] [place] [facility] [address] [id number] [place] [address]- 4639 Apr, [facility] [place] [facility] [address] [id number] [place] [address]- 3035 Apr, [facility] [place] [facility] [address] [id number] [place] [address]- 0978 Apr, [facility] [place] [facility] [address] [id number], [place] [address]- 4816 Apr, [facility] [place] [facility] [address] [id number] [place] [address]- 8424 Apr, [facility] [place] [facility] [address] [id number] [place] [address]- 4540 Apr, [facility] [place] [facility] [address] [id number], [place] [address]- 2406 Apr, [facility] [place] [facility] [address] [id number], [place] [address]- 1104 Apr, [facility] [place] [facility] [address] [id number] [place] [address]- 9477 Apr, [facility] [place] [facility] [address] [id number], [place] [address]- 5890 Apr, [facility] [place] [facility] [address] [id number], [place] [address]- 3637 Apr, [facility] [place] [facility] [address] [id number] [place] [address]- 5175 Apr, [facility] [address] [id number] [place] [address]- 8540 Apr, [facility] [place] [facility] [address] [id number] [place] [address]- 1950 Apr, [facility] [place] [facility] [address] [id number] [place] [address]- 4747 Apr, [facility] [place] [facility] [address] [id number] [place] [address]- 0460 Apr, [facility] [place] [facility] [address] [id number] [place] [address]- 5208 Apr, [facility] [place] [facility] [address] [id number] [place] [address]- 7016 Apr, [facility] [place] [facility] [address] [id number] [place] [address]- 4007 Apr, [facility] [place] [facility] [address] [id number] [place] [address]- 2281 Mar, [facility] [place] [facility] [address] [id number] [place] [address]- 6997 Mar, [facility] [place] [facility] [address] [facility] [id number] [place] [address]- 5433 Mar, [facility] [place] [facility] [address] [id number] [place] [address]- 1669 Mar, [facility] [place] [facility] [address] [id number] [place] [address]- 6200 Mar, [facility] [place] [facility] [address] [id number] [place] 5945 Mar, [facility] [place] [facility] [address] [id number] [place] 0464 Mar, [facility] [place] [facility] [address] [id number] [place] [address]- 5650 Mar, [facility] [place] [facility] [address] [id number] [place] [address]- 8205 Mar, [facility] [place] [facility] [address] [id number] [place] [address]- 7590 Mar, [facility] [place] [facility] [address] [id number] [place] [address]- 3754 Mar, [facility] [place] [facility] [address] [id number] [place] [address]- 3148 Mar, [facility] [place] [facility] [address] [id number] [place] [address]- 4920 Mar, [facility] [place] [facility] [address] [id number] [place] [address]- 5537 Mar, [facility] [place] [facility] [address] [id number] [place] [address]- 3336 Mar, [facility] [place] [facility] [address] [id number] [place] [address]- 0880 Mar, [facility] [place] [facility] [address] [id number] [place] [address]- 3216 Feb, [facility] [place] [facility] [address] [id number] [place] [address]- 9673 Feb, [facility] [place] [facility] [address] [id number] [place] [address]- 3454 Feb, [facility] [place] [facility] [address] [id number] [place] [address]- 7743 Feb, [facility] [place] [facility] [address] [id number] [place] [address]- 8556 Feb, [facility] [place] [facility] [address] [id number] [place] [address]- 4220 Feb, [facility] [place] [facility] [address] [id number] [place] [address]- 8227 Feb, [facility] [place] [facility] [address] [id number] [place] [address]- 1004 18 Feb, 2014 [facility] [place] [facility] [address] [id number] [place] [address]- 5387 18 Feb, 2014 [facility] [place] [facility] [address] [id number] [place] [address]- 7784 17 Feb, 2014 [facility] [place] [facility] [address] [id number] [place] [address]- 8042 17 Feb, 2014 [facility] [place] [facility] [address] [id number] [place] [address]- 2756 17 Feb, 2014 [facility] [place] [facility] [address] [id number] [place] [address]- 9502 17 Feb, 2014 [facility] [place] [facility] [address] [id number] [place] [address]- 0027 14 Feb, 2014 [facility] [place] [facility] [address] [id number] [place] [address]- 6796 Feb, [facility] [place] [facility] [address] [id number] [place] [address]- 9577 14 Feb, 2014 [facility] [place] [facility] [address] [id number] [place] [address]- 2238 Feb, [facility] [place] [facility] [address] [id number] [place] [address]- 6274 Feb, [facility] [place] [facility] [address] [id number] [place] [address]- 0769 Feb, [facility] [place] [facility] [address] [id number] [place] [address]- 4262 Feb, [facility] [place] [facility] [address] [id number] [place] [address]- 8333 Feb, [facility] [place] [facility] [address] [id number] [place] [address]- 7078 Jan, [facility] [place] [facility] [address] [id number] [place] [address]- 1416 Jan, [facility] [place] [facility] [address] [id number] [place] [address]- 2244 30 Jan, 2013 [facility] [place] [facility] [address] [id number] [place] [address]- 1639 30 Jan, 2014 [facility] [place] [facility] [address] [id number] [place] [address]- 2903 24 Jan, 2014 [facility] [place] [facility] [address] [id number] [place] [address]- 2473 24 Jan, 2014 [facility] [place] [facility] [address] [id number] [place] [address]- 1898 Jan, [facility] [place] [facility] [address] [id number] [place] [address]- 1687 Jan, [facility] [place] [facility] [address] [id number] [place] [address]- 7576 Jan, [facility] [place] [facility] [address] [id number] [place] [address]- 5553 Jan, [facility] [place] [facility] [address] [id number] [place] [address]- 9429 17 Jan, 2014 [facility] [place] [facility] [address] [id number] [place] [address]- 3913 17 Jan, 2014 [facility] [place] [facility] [address] [id number] [place] [address]- 7089 17 Jan, 2014 [facility] [place] [facility] [address] [id number] [place] [address]- 1473 17 Jan, 2013 [facility] [place] [facility] [address] [id number] [place] [address]- 8127 15 Jan, 2014 [facility] [place] [facility] [address] [id number] [place] [address]- 9510 15 Jan, 2014 [facility] [place] [facility] [address] [id number] [place] [address]- 9737 14 Jan, 2014 [facility] [place] [facility] [address] [id number] [place] [address]- 8476 14 Jan, 2014 [facility] [place] [facility] [address] [id number] [place] [address]- 9106 Jan, [facility] [place] [facility] [address] [id number] [place] [address]- 6766 Jan, [facility] [place] [facility] [address] [id number] [place] [address]- 6461 Jan, [facility] [place] [facility] [address] [id number] [place] [address]- 6973 Jan, [facility] [place] [facility] [address] [id number] [place] [address]- 2782 Jan, [facility] [place] [facility] [address] [id number] [place] [address]- 9688 Jan, [facility] [place] [facility] [address] [id number] [place] [address]- 3321 Jan, [facility] [place] [facility] [address] [id number], [place] [address]- 1778 25 Dec, 2013 [facility] [place] [facility] [address] [id number] [place] [address]- 2110 25 Dec, 2013 [facility] [place] [facility] [address] [id number], [place] [address]- 5055 23 Dec, 2013 [facility] [place] [facility] [address] [id number], [place] [address]- 3495 23 Dec, 2013 [facility] [place] [facility] [address] [id number], [place] [address]- 9856 19 Dec, 2013 [facility] [place] [facility] [address] [id number] [place] [address]- 1689 19 Dec, 2013 [facility] [place] [facility] [address] [id number], [place] [address]- 4639 17 Dec, 2013 [facility] [place] [facility] [address] [id number], [place] [address]- 4806 17 Dec, 2013 [facility] [place] [facility] [address] [id number], [place] [address]- 8813 09 Sep, 2013 [facility] [place] [facility] [address] [id number] [place] [address]- 1281 09 Sep, 2013 [facility] [place] [facility] [address] [id number] [place] [address]- 7971 08 Dec, 2013 [facility] [place] [facility] [address] [id number] [place] [address]- 4978 08 Sep, 2013 [facility] [place] [facility] [address] [id number] [place] [address]- 9001 Dec, 2013 [facility] [place] [facility] [address] [id number] [place] [address]- 4320 Dec, 2013 [facility] [place] [facility] [address] [id number] [place] [address]- 5638 Dec, 2013 [facility] [place] [facility] [address] [id number] [place] [address]- 9754 Dec, 2013 [facility] [place] [facility] [address] [id number] [place] [address]- 6495 Dec, 2013 [facility] [place] [facility] [address] [id number] [place] [address]- 4601 Dec, 2013 [facility] [place] [facility] [address] [id number] [place] [address]- 8926 Nov, [facility] [place] [facility] [address] [id number] [place] [address]- 2415 Nov, [facility] [place] [facility] [address] [id number], [place] [address]- 2540 Nov, [facility] [place] [facility] [address] [id number] [place] [address]- 9742 Nov, [facility] [place] [facility] [address] [id number] [place] [address]- 6894 Nov, [facility] [place] [facility] [address] [id number] [place] [address]- 0245 Nov, [facility] [place] [facility] [address] [id number] [place] [address]- 2274 Nov, [facility] [place] [facility] [address] [id number] [place] [address]- 3461 Nov, [facility] [place] [facility] [address] [id number] [place] [address]- 3196 Nov, [facility] [place] [facility] [address] [id number] [place] [address]- 3413 Nov, [facility] [place] [facility] [address] [id number] [place] [address]- 0860 Nov, [facility] [place] [facility] [address] [id number] [place] [address]- 9430 Nov, [facility] [place] [facility] [address] [id number] [place] [address]- 3958 Oct, [facility] [place] [facility] [address] [id number] [place] [address]- 4861 Oct, [facility] [place] [facility] [address] [id number] [place] [address]- 3041 Oct, [facility] [place] [facility] [address] [id number] [place] [address]- 6006 Oct, [facility] [place] [facility] [address] [id number] [place] [address]- 3724 Oct, [facility] [place] [facility] [address] [id number] [place] [address]- 2739 Oct, [facility] [place] [facility] [address] [id number] [place] [address]- 8019 Oct, [facility] [place] [facility] [address] [id number] [place] [address] Oct, [facility] [place] [facility] [address] [id number] [place] [address] Oct, [facility] [place] [facility] [address] [id number] [place] [address] 22 Oct, 2013 [facility] [place] [facility] [address] [id number] [place] [address] 16 Oct, 2013 [facility] [place] [facility] [address] [id number] [place] [address] 16 Oct, 2013 [facility] [place] [facility] [address] [id number] [place] [address] 14 Oct, 2013 [facility] [place] [facility] [address] [id number] [place] [address] 14 Oct, 2013 [facility] [place] [facility] [address] [id number] [place] [address] Oct, [facility] [place] [facility] [address] [id number] [place] [address] Oct, [facility] [place] [facility] [address] [id number] [place] [address] Oct, [facility] [place] [facility] [address] [id number] [place] [address] 27 Sep, 2013 [facility] [place] [facility] [address] [id number] [place] [address] 27 Sep, 2013 [facility] [place] [facility] [address] [id number] [place] [address] 20 Sep, 2013 [facility] [place] [facility] [address] [id number] [place] [address] 20 Sep, 2013 [facility] [place] [facility] [address] [id number] [place] [address] 18 Sep, 2013 [facility] [place] [facility] [address] [id number] [place] [address] 18 Sep, 2013 [facility] [place] [facility] [address] [id number] [place] [address] 17 Sep, 2013 [facility] [place] [facility] [address] [id number] [place] [address]46 17 Sep, 2013 [facility] [place] [facility] [address] [id number] [place] [address] Sep, [facility] [place] [facility] [address] [id number] [place] [address] Sep, [facility] [place] [facility] [address] [id number] [place] [address] Sep, [facility] [place] [facility] [address] [id number] [place] [address] Sep, [facility] [place] [facility] [address] [id number] [place] [address] Sep, [facility] [place] [facility] [address] [id number] [place] [address] Sep, [facility] [place] [facility] [address] [id number] [place] [address] Sep, [facility] [place] [facility] [address] [id number] [place] [address]35 Sep, [facility] [place] [facility] [address] [id number] [place] [address] Sep, [facility] [place] [facility] [address] [id number] [place] [address]- 1481 Sep, [facility] [place] [facility] [address] [facility] [id number] [place] [address] Sep, [facility] [place] [facility] [address] [id number] [place] [address] 85[address] Sep, [facility] [place] [facility] [address] [id number] [place] [address] Sep, [facility] [place] [facility] [address] [id number] [place] [address] Sep, [facility] [place] [facility] [address] [id number] [place] [address] August, [facility] [place] [facility] [address] [id number] [place] [address] August, [facility] [place] [facility] [address] [id number] [place] [address] August, [facility] [address] [id number] [place] [address] [address] August, [facility] [address] [id number] [place] [address] August, [facility] [address] [id number] [place] [address] [address] August, [facility] [address] [id number] [place] [address] August, [facility] [address] [id number] [place] [address] [address] August, [facility] [address] [id number] [place] [address] August, [facility] [address] [id number] [place] [address] August, [facility] [address] [id number] [place] [address]- [address] August, [facility] [address] [id number] [place] [address] Jul, [facility] [place] [facility] [address] [id number] [place] [address] Jul, [facility] [place] [facility] [address] [id number] [place] [address]- 39[address] Jul, [facility] [place] [facility] [address] [id number] [place] [address] Jul, [facility] [place] [facility] [address] [id number] [place] [address]- 6[address] Jul, [facility] [place] [facility] [address] [id number] [place] [address]- [address] Jul, [facility] [place] [facility] [address] [id number] [place] [address]40 Jul, [facility] [place] [facility] [address] [id number] [place] [address]- [address]290 Jul, [facility] [place] [facility] [address] [id number] [place] [address]- [address]120 Jul, [facility] [place] [facility] [address] [id number] [place] [address]- 3965 Jul, [facility] [place] [facility] [address] [id number] [place] [address]- 5666 16 Jul, 2013 [facility] [place] [facility] [address] [id number] [place] [address]- 27[address] Jul, [facility] [place] [facility] [address] [id number] [place] [address]- 1477 Jul, [facility] [place] [facility] [address] [id number] [place] [address]- 5679 Jul, [facility] [place] [facility] [address] [id number] [place] [address]- 9467 Jul, [facility] [place] [facility] [address] [id number] [place] [address]- 9078 Jul, [facility] [place] [facility] [address] [id number] [place] [address]- [address] Jul, [facility] [place] [facility] [address] [id number] [place] [address]- [address] Jul, [facility] [place] [facility] [address] [id number] [place] [address]- 8936 Jul, [facility] [place] [facility] [address] [id number] [place] [address]- [address] Jul, [facility] [place] [facility] [address] [id number] [place] [address]- [address] Jul, [facility] [place] [facility] [address] [id number] [place] [address]- [address]594 Jul, [facility] [place] [facility] [address] [id number] [place] [address]- 8696 Jul, [facility] [address] [id number] [place] [address]- 29[address] Jun, [facility] [place] [facility] [address] [id number] [place] [address]- 268[address] Jun, [facility] [address] [id number] [place] [address]- 6649 Jun, [facility] [place] [facility] [address] [id number] [place] [address]- 138[address] Jun, [facility] [place] [facility] [address] [id number] [place] [address]- [address] Jun, [facility] [place] [facility] [address] [id number] [place] [address] Jun, [facility] [place] [facility] [address] [id number] [place] [address] Jun, [facility] [address] [id number] [place] [address] Jun, [facility] [place] [facility] [address] [id number] [place] [address] 69[address] Jun, [facility] [address] [id number] [place] [address] 1414 Jun, [facility] [place] [facility] [address] [id number] [place] [address] 6[address] Jun, [facility] [place] [facility] [address] [id number] [place] [address] Jun, [facility] [place] [facility] [address] [id number] [place] [address] May, [facility] [place] [facility] [address] [id number] [place] [address] 8686 May, [facility] [place] [facility] [address] [id number] [place] [address] 8275 Apr, [facility] [address] [id number] [place] [address]- 7234 Apr, [facility] [place] [facility] [address] [id number] [place] [address]- 9688 Apr, [facility] [place] [facility] [address] [id number] [place] [address]- 3045 Apr, [facility] [place] [facility] [address] [id number] [place] [address]- 5898 Apr, [facility] [place] [facility] [address] [id number] [place] [address]- 0362 Apr, [facility] [place] [facility] [address] [id number] [place] [address]- 4114 Apr, [facility] [place] [facility] [address] [id number] [place] [address]- 5493 Apr, [facility] [place] [facility] [address] [id number] [place] [address]- 1369 Apr, [facility] [place] [facility] [address] [id number] [place] [address]- 1282 Apr, [facility] [place] [facility] [address] [id number] [place] [address]- 9861 Apr, [facility] [place] [facility] [address] [id number] [place] [address]- 6000 16 Mar, 2013 [facility] [place] [facility] [address] [id number], [place] [address] Mar, [facility] [place] [facility] [address] [id number] [place] [address]- 4091 Mar, [facility] [place] [facility] [address] [id number] [place] [address]- 1610 Mar, [facility] [place] [facility] [address] [id number] [place] [address]- 3412 Feb, [facility] [place] [facility] [address] [id number] [place] [address] 1932 Feb, [facility] [place] [facility] [address] [id number] [place] [address]- 7052 Feb, [facility] [place] [facility] [address] [id number] [place] [address]- 5886 Feb, [facility] [place] [facility] [address] [id number] [place] [address]- 7318 Feb, [facility] [place] [facility] [address] [id number] [place] [address]- 7654 Feb, [facility] [place] [facility] [address] [id number] [place] [address]- 8052 Feb, [facility] [place] [facility] [address] [id number] [place] [address]- 2730 Feb, [facility] [place] [facility] [address] [id number] [place] [address]- 3233 Feb, [facility] [place] [facility] [address] [id number] [place] [address]- 0771 Feb, [facility] [place] [facility] [address] [id number] [place] [address]- 0224 Feb, [facility] [place] [facility] [address] [facility] [id number] [place] [address]- 1526 Jan, [facility] [place] [facility] [address] [id number] [place] [address]- 2016 Jan, [facility] [place] [facility] [address] [id number], [place] [address] 97[address] Jan, [facility] [place] [facility] [address] [id number] [place] [address]- 9070 Jan, [facility] [place] [facility] [address] [facility] [id number] [place] [address]- 2988 Jan, [facility] [place] [facility] [address] [facility] [id number], [place] [address]- 69[address] Jan, [facility] [place] [facility] [address] [id number] [place] [address]- [address] 03 Jan, 2013 [facility] [place] [facility] [address] [id number] [place] [address]- 1428 02 Jan, 2013 [facility] [place] [facility] [address] [id number] [place] [address]- 7286 30 Dec, 2012 [facility] [place] [facility] [address] [id number] [place] [address]- 8063 25 Dec, 2012 [facility] [place] [facility] [address] [id number] [place] [address]- 4495 18 Dec, 2012 [facility] [place] [facility] [address] [id number] [place] [address]- 6143 17 Dec, 2012 [facility] [place] [facility] [address] [id number] [place] [address]- 8234 17 Dec, 2012 [facility] [place] [facility] [address] [id number] [place] [address]- 1374 16 Dec, 2012 [facility] [place] [facility] [address] [id number] [place] [address]- 9742 13 Dec, 2012 [facility] [place] [facility] [address] [id number] [place] [address]- 6088 11 Dec, 2012 [facility] [place] [facility] [address] [id number] [place] [address]- 4721 05 Dec, 2012 [facility] [place] [facility] [address] [id number] [place] [address]- 4922 04 Dec, 2012 [facility] [place] [facility] [address] [id number] [place] [address]- 3660 30 Nov, 2012 [facility] [place] [facility] [address] [id number] [place] [address]- 0729 29 Nov, 2012 [facility] [place] [facility] [address] [id number] [place] [address]- 8361 Nov, [facility] [place] [facility] [address] [id number] [place] [address]- 7106 16 Nov, 2012 [facility] [place] [facility] [address] [id number] [place] [address]- 9243 14 Nov, 2012 [facility] [place] [facility] [address] [id number] [place] [address]- 3850 Nov, [facility] [place] [facility] [address] [id number] [place] [address]- 3787 05 Nov, 2012 [facility] [place] [facility] [address] [id number] [place] [address]- 6813 29 Oct, 2012 [facility] [place] [facility] [address] [id number] [place] [address]- 7198 Oct, [facility] [place] [facility] [address] [id number] [place] [address]- 8030 Oct, [facility] [place] [facility] [address] [id number] [place] [address]- 4261 Oct, [facility] [place] [facility] [address] [id number] [place] [address]- 6290 15 Oct, 2012 [facility] [place] [facility] [address] [id number] [place] [address]- 8198 Oct, [facility] [place] [facility] [address] [id number] [place] [address]- 3230 Sep, [facility] [place] [facility] [address] [id number] [place] [address]- 7065 28 Sep, 2012 [facility] [place] [facility] [address] [id number] [place] [address]- 5461 27 Sep, 2012 [facility] [place] [facility] [address] [id number] [place] [address]- 5842 14 Sep, 2012 [facility] [place] [facility] [address] [id number] [place] [address]- 7998 13 Sep, 2012 [facility] [place] [facility] [address] [id number] [place] [address]- 5685 10 Sep, 2012 [facility] [place] [facility] [address] [id number] [place] [address]- 3538 Sep, [facility] [address] [id number] [place] [address]- 3327 Sep, [facility] [address] [id number] [place] [address]- 7449 Sep, [facility] [address] [id number] [place] [address]- 9089 August, [facility] [address] [id number] [place] [address]- 0933 August, [facility] [address] [id number] [place] [address]- 5478 August, [facility] [address] [id number] [place] [address]- 4126 August, [facility] [address] [id number] [place] [address]- 8126 August, [facility] [address] [id number] [place] [address]- 5813 August, [facility] [address] [id number] [place] [address]- 2179 August, [facility] [address] [id number] [place] [address]- 6201 August, [facility] [address] [id number] [place] [address]- 8091 Jul, [facility] [address] [id number] [place] [address]- 1359 Jul, [facility] [address] [place] [id number] Jul [facility] [address] [id number] [place] [address]- 0296 Jun, [facility] [address] [id number] [place] [address]- 7055 Jun, [facility] [address] [id number] [place] [address]- 5436 Jun, [facility] [address] [id number] [place] [address]- 1723 Jun, [facility] [place] [facility] [address] [id number] [place] [address]- 2270 Jun, [facility] [address] [id number] [place] [address]- 1432 Jun, [facility] [place] [facility] [address] [id number] [place] [address]- 1461 May, [facility] [place] [facility] [address] [id number] [place] [address]- 8480 May, [facility] [place] [facility] [address] [id number] [place] [address]- 0814 May, [facility] [place] [facility] [address] [id number] [place] [address]- 8785 May, [facility] [place] [facility] [address] [id number] [place] [address]- 4026 May, [facility] [place] [facility] [address] [id number] [place] [address]- 0878 Apr, [facility] [place] [facility] [address] [id number] [place] [address]- 9760 Apr, [facility] [place] [facility] [address] [id number] [place] [address]- 2295 Apr, [facility] [place] [facility] [address] [id number] [place] [address]- 2725 Apr, [facility] [place] [facility] [address] [id number] [place] [address]- 2964 Apr, [facility] [place] [facility] [address] [id number] [place] [address]- 4631 Apr, [facility] [place] [facility] [address] [id number] [place] [address]- 4455 Mar, [facility] [place] [facility] [address] [id number] [place] [address]- 8827 Mar, [facility] [place] [facility] [address] [id number] [place] [address] Mar, [facility] [place] [facility] [address] [id number] [place] [address]- 6726 Mar, [facility] [place] [facility] [address] [id number] [place] [address]- 1999 Mar, [facility] [place] [facility] [address] [id number] [place] [address]- 1646 Mar, [facility] [place] [facility] [address] [id number] [place] [address]- 4876 18 Mar, 2012 [facility] [place] [facility] [address] [id number] [place] [address]- 4165 Mar, [facility] [place] [facility] [address] [id number] [place] [address]- 5991 Mar, [facility] [place] [facility] [address] [id number] [place] [address]- 3307 05 Mar, 2012 [facility] [place] [facility] [address] [id number] [place] [address]- 5594 Mar, [facility] [place] [facility] [address] [id number] [place] [address]- 7091 Feb, [facility] [place] [facility] [address] [id number] [place] [address]- 1843 Feb, [facility] [place] [facility] [address] [id number] [place] [address]- 8362 Feb, [facility] [place] [facility] [address] [id number] [place] [address]- 4999 Feb, [facility] [place] [facility] [address] [id number] [place] [address]- 3284 Feb, [facility] [place] [facility] [address] [id number] [place] [address]- 0352 16 Feb, 2012 [facility] [place] [facility] [address] [id number] [place] [address]- 5366 16 Feb, 2012 [facility] [place] [facility] [address] [id number] [place] [address]- 2123 Feb, [facility] [place] [facility] [address] [id number] [place] [address]- 2410 Feb, [facility] [place] [facility] [address] [id number] [place] [address]- 5644 Feb, [facility] [place] [facility] [id number] [place] [address], [place] [address]- 2865 Feb, [facility] [place] [facility] [address] [id number] [place] [address]- 1062 Jan, [facility] [place] [facility] [address] [id number] [place] [address]- 2395 Jan, [facility] [place] [facility] [address] [id number] [place] [address]- 5821 Jan, [facility] [place] [facility] [address] [facility] [id number] [place] [address]- 1876 Jan, [facility] [place] [facility] [address] [facility] [id number] [place] [address]- 8048 Jan, [facility] [place] [facility] [address] [id number] [place] [address]- 8064 Jan, [facility] [place] [facility] [address] [id number] [place] [address]- 2400 09 Jan, 2012 [facility] [place] [facility] [address] [id number] [place] [address]- 7137 24 Dec, 2011 [facility] [place] [facility] [address] [facility] [id number] [place] [address]- 8368 17 Sep2011 [facility] [place] [facility] [address] [id number] [place] [address]- 3559 Dec, [facility] [place] [facility] [address] [id number] [place] [address]- 1163 Dec, [facility] [place] [facility] [address] [id number] [place] [address]- 9047 Nov, [facility] [place] [facility] [address] [id number] [place] [address]- 8439 Nov, [facility] [place] [facility] [address] [id number] [place] [address]- 7921 Nov, [facility] [place] [facility] [address] [id number] [place] [address]- 4179 Nov, [facility] [place] [facility] [address] [id number] [place] [address]- 2531 Nov, [facility] [place] [facility] [address] [id number] [place] [address]- 9790 Nov, [facility] [place] [facility] [address] [id number] [place] [address]- 1082 Nov, [facility] [place] [facility] [address] [id number] [place] [address]- 1129 Nov, [facility] [place] [facility] [address] [id number] [place] [address]- 3264 Nov, [facility] [place] [facility] [address] [id number] [place] [address]- 8268 Nov, [facility] [place] [facility] [address] [id number] [place] [address]- 3170 Nov, [facility] [place] [facility] [address] [id number] [place] [address]- 5341 Nov, [facility] [place] [facility] [address] [id number] [place] [address]- 3279 Nov, [facility] [place] [facility] [address] [id number] [place] [address]- 8231 Oct, [facility] [place] [facility] [address] [id number] [place] [address]- 5094 Oct, [facility] [place] [facility] [address] [id number] [place] [address]- 8741 Oct, [facility] [place] [facility] [address] [id number] [place] [address]- 1024 Oct, [facility] [place] [facility] [address] [id number] [place] [address]- 1157 Oct, [facility] [place] [facility] [address] [id number] [place] [address]- 0597 Oct, [facility] [place] [facility] [address] [id number] [place] [address]- 3166 Oct, [facility] [place] [facility] [address] [id number] [place] [address]- 6684 Oct, [facility] [place] [facility] [address] [id number] [place] [address]- 9285 Oct, [facility] [place] [facility] [address] [id number] [place] [address]- 4977 Sep, [facility] [place] [facility] [address] [id number] [place] [address]- 8471 Sep, [facility] [place] [facility] [address] [id number] [place] [address]- 5579 Sep, [facility] [place] [facility] [address] [id number] [place] [address]- 5085 Sep, [facility] [place] [facility] [address] [id number] [place] [address]- 6249 Sep, [facility] [place] [facility] [address] [id number] [place] [address]- 2599 Sep, [facility] [place] [facility] [address] [id number] [place] [address]- 3501 Sep, [facility] [place] [facility] [address] [facility] [id number] [place] [address]- 9536 Sep, [facility] [place] [facility] [id number], [place] [address]- 0453 August, [facility] [id number] [address]347 August, [facility] [id number], [place] [address]- 6280 August, [facility] [id number], [place] [address]- 5606 August, [facility] [id number] 0628 August, [facility] [id number]- 8149 August, [facility] [id number] 3437 August, [facility] [id number], [place] [address]- 4581 August, [facility] [id number] 4477 August, [facility] [id number], [place] [address]- 2275 August, [facility] [address] [id number] 1209 August, [facility] [address] [id number], [place] [address]- 4137 August, [facility] [address] [id number] [id number] 1288 Oct, IMMUNIZATIONS No Known Immunizations SOCIAL HISTORY Never Assessed REASON FOR VISIT Lab (walk-in)--[facility] PLAN OF CARE VITAL SIGNS MEDICATIONS Unknown Medications RESULTS No Results PROCEDURES Procedure Date Ordered Result Body Site No Charge July 24, 2017 LIPID PANEL July 24, 2017 AUTOMATED RETICULOCYTE COUNT July 24, 2017 COMPLETE CBC W/AUTO DIFF WBC July 24, 2017 ASSAY OF FERRITIN July 24, 2017 COMPREHEN METABOLIC PANEL July 24, 2017 BLOOD SMEAR INTERPRETATION July 24, 2017 ASSAY OF IRON July 24, 2017 IRON BINDING TEST July 24, 2017 INSTRUCTIONS MEDICATIONS ADMINISTERED No [...] Surgical History bladder surgery Hospitalization History Via [facility] for right groin pain 05/2011 Hospitalization History Via [facility] for wound on buttocks 08/2012 Hospitalization History Via [facility], hypoxia secondary to pneumonia 12/02-12/09 Hospitalization History Pneumonia, elevated CO2 on Bipap was in ICU 08/2013 Hospitalization History Hypoxia, Exacerbation COPD, Chest pain 09/05/15 Hospitalization History suicidal ideations-[place] 12/28 Hospitalization History hypoxia--[facility] 02/13/2016 Hospitalization History shortness of breath at june 2016 Hospitalization History Shortness of breath at august 2016 Hospitalization History SOB, chest pain at 12/2016
--- OUTSIDE RECORDS SUMMARY | 2017-11-24 17:31 | XMS REPORT ---
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 [facility] [id number] [place] [address] 48862- 4656 Jun, Unspecified mood [affective] disorder [id number] [place] [address] 08566- 5644 Jun, Unspecified mood [affective] disorder [id number] [place] [address] 45503- 6816 Jun, Unspecified mood [affective] disorder [id number] [place] [address] 59093- 6840 15 Jun, 2015 Unspecified mood [affective] disorder [id number] [place] [address] 75067- 4532 14 Jun, 2015 [facility] [id number] [place] [address] 79086- 3085 Jun, Type 2 diabetes mellitus with hyperglycemia E11.65 ; 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 ; Folliculitis L73.9 ; Dysuria R30.0 ; Encounter for contraceptive management Z30.9 and Dog bite W54.0XXA [facility] [address] [address]- 4172 Jun, Unspecified mood [affective] disorder [address] [place] [address] [address] [address]- 2862 Jun, Type 2 diabetes mellitus with hyperglycemia E11.65 [facility] [id number] [place] [address] 21216- 9861 May, Unspecified mood [affective] disorder [address] [place] [address] [address] [address]- 5451 May, [facility] [id number] [place] [address] 18146- 5151 May, [facility] [id number] [place] [address] 08413- 6760 May, [facility] [facility] [id number] [place] [address] 17732- 1425 Apr, [facility] [id number] [place] [address] 90719- 0755 Apr, Unspecified mood [affective] disorder F39 [facility] [id number] [place] [address] 15571- 9161 Apr, [facility] [id number] [place] [address] 07640- 2924 Apr, [facility] [id number] [place] [address] 52302- 4437 Apr, [facility] [id number] [place] [address] 97804- 7771 Apr, Dysuria R30.0 and Well woman exam (no gynecological exam) Z00.00 [place] [id number] [place] [address] 87338- 0674 Mar, [facility] [id number] [place] [address] 51126- 6579 Mar, [facility] [id number] [place] [address] [id number] Mar, Dental examination Z01.20 [facility] [facility] [id number] [place] [address] 47782- 2402 Mar, Chronic diarrhea K52.9 ; Intractable vomiting with nausea, vomiting of unspecified type R11.2 ; Cellulitis, unspecified cellulitis site L03.90 ; Type 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 and Postinflammatory hyperpigmentation L81.0 [facility] [facility] [id number] [place] [address] 54012- 4027 Mar, Unspecified mood [affective] disorder F39 [facility] [facility] [address] [facility] [id number] [address]- 6388 Mar, Unspecified mood [affective] disorder F39 [facility] [facility] [address] [facility] [id number], [place] [address]- 3832 Mar, [facility] [facility] [address] [facility] [id number], [place] [address]- 4760 Mar, [facility] [facility] [address] [facility] [id number], [place] [address]- 1254 Mar, [facility] [facility] [address] [facility] [id number], [place] [address]- 3533 Mar, [facility] [facility] [address] [facility] [id number], [place] [address]- 9091 Mar, [facility] [facility] [address] [id number] [address]- 1324 Mar, [facility] [facility] [address] [id number] [address]- 6445 Feb, Unspecified mood [affective] disorder F39 [facility] [facility] [address] [id number] [address]- 1496 Feb, [facility] [facility] [address] [id number] [address]- 7332 Feb, [facility] [facility] [id number] [address]- 7387 Jan, Unspecified mood [affective] disorder [id number] [id number] [id number] Jan, Encounter for dental examination Z01.20 [facility] [address] [id number] [address]- 5858 Jan, [facility] [facility] [address] [id number] [address]- 8521 Jan, [facility] [facility] [id number] [place] [address] 40255- 1486 Jan, [facility] [facility] [id number] [place] [address] 29310- 4375 Jan, [facility] [facility] [address] 86001- 1506 Jan, [facility] [facility] [address] 50558- 2699 Jan, Abdominal abscess K65.1 and Dental caries K02.9 [facility] [facility] [address] 62228- 6834 Jan, [facility] [facility] [address] 49399- 2216 30 Dec, 2014 Diabetes with neurological manifestations, type II or unspecified type, not stated as uncontrolled 250.60 ; Essential hypertension, benign 401.1 ; Concussion 850.9 and Skin texture changes 782.8 [facility] [facility] [address] 79618- 4380 Dec, [facility] [facility] [id number] [place] [address] 31227- 4797 24 Dec, 2014 [facility] [facility] [address] 73770- 2751 22 Dec, 2014 [facility] [facility] [id number] [place] [address] 74462- 9813 21 Dec, 2014 [facility] [facility] [id number] [place] [address] 52810- 6623 17 Dec, 2014 Affective disorder 296.90 [facility] [facility] [id number] [place] [address] 43267- 4897 14 Dec, 2014 [facility] [facility] [address] 37641- 9679 10 Dec, 2014 Affective disorder 296.90 [facility] [facility] [id number] [place] [address] 08476- 7122 04 Dec, 2014 [facility] [facility] [address] [address] 2546 04 Dec, 2014 [facility] [facility] [address] [place] [address] 2546 04 Dec, 2014 [facility] [facility] [address] [address] 2546 Dec, 2014 [facility] [facility] [address], [place] [address] 2546 Nov, Affective disorder 296.90 [facility] [facility] [address], [place] [address] 2546 Nov, [facility] [facility] [address] [address] 2546 Nov, Affective disorder 296.90 [facility] [facility] [address] [address] 2546 Nov, Diarrhea 787.91 [facility] [facility] [address], [place] [address] 2546 Nov, [facility] [facility] [address] [address] 2546 Nov, Diarrhea 787.91 [facility] [facility] [address] [address] 2546 Nov, Diarrhea 787.91 and Hyperlipidemia 272.4 [facility] [facility] [address], [place] [address] 2546 Nov, Diarrhea 787.91 [facility] [facility] [id number] [address] 2546 Nov, Affective disorder 296.90 [facility] [facility] [address], [place] [address] 2546 Nov, Affective disorder 296.90 [facility] [facility] [id number] [address] 2546 Nov, Affective disorder 296.90 [facility] [facility] [address] [address]- 1740 Nov, [facility] [facility] [address], [place] [address]- 3637 Nov, [facility] [facility] [address], [place] [address]- 9109 Nov, [facility] [facility] [id number] [place] [address] 36510- 4887 Nov, Episodic mood disorder 296.90 [facility] [facility] [address] [address]- 4072 Nov, [facility] [facility] [id number] [place] [address] 02867- 9023 Nov, [facility] [facility] [address], [place] [address]- 3817 Nov, [facility] [facility] [id number] [place] [address] 65220- 5477 Nov, [facility] [facility] [address], [place] [address]- 8345 Nov, [facility] [facility] [address] [address]- 2980 Nov, Lymphedema 457.1 ; Hyperlipidemia 272.4 ; Essential hypertension, benign 401.1 and Numbness of toes 782.0 [facility] [facility] [address], [place] [address]- 0134 Nov, Episodic mood disorder 296.90 [facility] [place] [facility] [address], [place] [address]- 2124 Oct, [facility] [place] [facility] [address], [place] [address]- 6135 Oct, [facility] [facility] [address], [place] [address]- 0617 Oct, [facility] [facility] [address], [place] [address]- 9374 15 Oct, 2014 [facility] [address] [facility] [id number] [place] [address]- 2195 14 Oct, 2014 [facility] [address] [facility] [id number], [place] [address]- 5351 Oct, 2014 [facility] [address] [facility] [id number] [place] [address]- 7061 Oct, 2014 [facility] [address] [facility] [id number], [place] [address]- 0906 Oct, 2014 [facility] [address] [facility] [id number] [place] [address]- 9326 Oct, Episodic mood disorder 296.90 [facility] [id number] [place] [address]- 4092 Sep, [facility] [address], [place] [address]- 9983 Sep, [facility] [address] [id number] [address]- 0457 Sep, [facility] [address], [place] [address]- 1983 Sep, [facility] [address], [place] [address]- 7140 Sep, [facility] [address], [place] [address]- 1054 Sep, Episodic mood disorder 296.90 [facility] [address] [facility] [id number], [place] [address]- 1294 Sep, Unspecified episodic mood disorder 296.90 [facility] [address] [facility] [id number] [place] [address]- 5832 Sep, [facility] [place] [facility] [id number], [place] [address]- 5263 Sep, [facility] [address], [place] [address]- 9763 Sep, Episodic mood disorder 296.90 [facility] [place] [facility] [address], [place] [address]- 6000 Sep, [facility] [place] [facility] [id number] [place] [address] 30696- 1037 Sep, [facility] [place] [facility] [id number] [place] [address] 31517- 4523 Sep, [facility] [place] [facility] [id number] [place] [address] 98219- 8793 Sep, Hematemesis 578.0 and Vomiting 787.03 [facility] [place] [facility] [id number] [place] [address] 23361- 8701 Sep, Episodic mood disorder 296.90 [facility] [place] [facility] [id number] [place] [address] 08028- 0997 Sep, [facility] [place] [facility] [id number] [place] [address] 30225- 0793 Sep, [facility] [place] [facility] [address], [place] [address]- 6917 Sep, Diabetes mellitus without mention of complication, type II or unspecified type, not stated as uncontrolled 250.00 and Other chronic pain 338.29 [facility] [place] [facility] [address], [place] [address]- 3996 Sep, Episodic mood disorder 296.90 [facility] [place] [facility] [id number] [place] [address] 45559- 7535 Sep, [facility] [place] [facility] [id number] [address]- 6712 Sep, Episodic mood disorder 296.90 [facility] [place] [facility] [id number] [place] [address] 380725- 5538 Sep, [facility] [place] [facility] [address], [place] [address]- 8428 August, [facility] [place] [facility] [id number] [place] [address]- 4796 August, [facility] [place] [facility] [address] [place] [address]- 2531 August, Episodic mood disorder 296.90 [facility] [place] [facility] [address] [place] [address]- 1503 August, [facility] [place] [facility] [address] [id number] [place] [address]- 9386 August, Unspecified episodic mood disorder 296.90 [facility] [place] [facility] [address] [place] [address]- 6177 August, Vomiting 787.03 [facility] [place] [facility] [address] [place] [address]- 9420 August, [facility] [place] [facility] [address], [place] [address]- 6229 August, [facility] [place] [facility] [address], [place] [address]- 3900 August, [facility] [place] [facility] [address] [place] [address]- 8443 August, [facility] [place] [facility] [address] [place] [address]- 0154 August, [facility] [place] [facility] [address] [address]- 3262 Jul, [facility] [place] [facility] [address], [place] [address]- 8308 Jul, [facility] [place] [facility] [address] [place] [address]- 4906 Jul, [facility] [place] [facility] [id number] [place] [address]- 1676 Jun, [facility] [place] [facility] [id number] [place] [address]- 2329 Jun, [facility] [place] [facility] [address] [id number] [place] [address]- 9926 30 Jun, 2014 [facility] [place] [facility] [address] [id number] [place] [address]- 5310 30 Jun, 2014 [facility] [place] [facility] [address] [id number] [place] [address]- 7336 Jun, [facility] [place] [facility] [address] [id number] [place] [address]- 5256 Jun, 2014 [facility] [place] [facility] [address] [id number] [place] [address]- 5934 Jun, [facility] [place] [facility] [address] [id number] [place] [address]- 7390 Jun, [facility] [place] [facility] [address] [id number] [place] [address]- 7375 Jun, [facility] [place] [facility] [address] [id number] [place] [address] Jun, [facility] [place] [facility] [address] [id number] [place] [address] Jun, [facility] [place] [facility] [address] [id number] [place] [address] Jun, [facility] [place] [facility] [address] [id number] [place] [address] Jun, [facility] [place] [facility] [address] [id number] [place] [address] Jun, [facility] [place] [facility] [address] [id number] [place] [address] Jun, [facility] [place] [facility] [address] [id number] [place] [address] Jun, [facility] [place] [facility] [address] [id number] [place] [address] Jun, [facility] [place] [facility] [address] [id number] [place] [address] Jun, [facility] [place] [facility] [address] [id number] [place] [address] 23 Jun, 2014 [facility] [place] [facility] [address] [id number] [place] [address] 21 Jun, 2014 [facility] [place] [facility] [address] [id number] [place] [address] 21 Jun, 2014 [facility] [place] [facility] [address] [id number] [place] [address] 20 Jun, 2014 [facility] [place] [facility] [address] [id number] [place] [address]- [address] 20 Jun, 2014 [facility] [place] [facility] [address] [id number] [place] [address]- [address] 20 Jun, 2014 [facility] [place] [facility] [address] [id number] [place] [address]- [address] 20 Jun, 2014 [facility] [place] [facility] [address] [id number] [place] [address]- [address] 19 Jun, 2014 [facility] [place] [facility] [address] [id number] [place] [address]- [address] 19 Jun, 2014 [facility] [place] [facility] [address] [id number] [place] [address]- [address] 18 Jun, 2014 [facility] [place] [facility] [address] [id number] [place] [address]- [address] 18 Jun, 2014 [facility] [place] [facility] [address] [id number] [place] [address]- [address] 17 Jun, 2014 [facility] [place] [facility] [address] [id number] [place] [address]- [address] 17 Jun, 2014 [facility] [place] [facility] [address] [id number] [place] [address]- [address] 16 Jun, 2014 [facility] [place] [facility] [address] [id number] [place] [address]- [address] 16 Jun, 2014 [facility] [place] [facility] [address] [id number] [place] [address]- [address] 16 Jun, 2014 [facility] [place] [facility] [address] [id number] [place] [address]- [address] 16 Jun, 2014 [facility] [place] [facility] [address] [id number] [place] [address]- [address] 16 Jun, 2014 [facility] [place] [facility] [address] [id number] [place] [address]- [address] 16 Jun, 2014 [facility] [place] [facility] [address] [id number] [place] [address]- [address] Jun, 2014 [facility] [place] [facility] [address] [id number] [place] [address] 13 Jun, 2014 [facility] [place] [facility] [address] [id number] [place] [address]- [address] Jun, 2014 [facility] [place] [facility] [address] [id number] [place] [address]- [address] Jun, 2014 [facility] [place] [facility] [address] [id number] [place] [address] Jun, 2014 [facility] [place] [facility] [address] [id number] [place] [address] Jun, 2014 [facility] [place] [facility] [address] [id number] [place] [address] Jun, 2014 [facility] [place] [facility] [address] [id number] [place] [address]- [address] Jun, 2014 [facility] [place] [facility] [address] [id number] [place] [address] Jun, 2014 [facility] [place] [facility] [address] [id number] [place] [address]- [address] Jun, 2014 [facility] [place] [facility] [address] [id number] [place] [address] Jun, 2014 [facility] [place] [facility] [address] [id number] [place] [address]- [address] Jun, 2014 [facility] [place] [facility] [address] [id number] [place] [address]- [address] Jun, [facility] [place] [facility] [address] [id number] [place] [address]- [address] Jun, [facility] [place] [facility] [address] [id number] [place] [address]- [address] Jun, [facility] [place] [facility] [address] [id number] [place] [address] Jun, 2014 [facility] [place] [facility] [address] [id number] [place] [address] 1527 Jun, [facility] [place] [facility] [address] [id number] [place] [address] 0180 Jun, [facility] [place] [facility] [address] [facility] [id number] [place] [address]- 5186 Jun, [facility] [place] [facility] [address] [id number] [place] [address] 5001 Jun, [facility] [place] [facility] [address] [facility] [id number] [place] [address]- 8941 May, [facility] [place] [facility] [address] [facility] [id number] [place] [address]- 5385 May, [facility] [place] [facility] [address] [facility] [id number] [place] [address]- 7069 May, [facility] [place] [facility] [address] [id number] [place] [address]- 5298 May, 2014 [facility] [place] [facility] [address] [id number] [place] [address]- 6844 May, [facility] [place] [facility] [address] [id number] [place] [address]- 3520 May, [facility] [place] [facility] [address] [facility] [id number] [place] [address]- 8047 May, 2014 [facility] [place] [facility] [address] [facility] [id number] [place] [address]- 1363 May, 2014 [facility] [place] [facility] [address] [facility] [id number] [place] [address]- 3799 20 May, 2014 [facility] [place] [facility] [address] [facility] [id number] [place] [address]- 9969 20 May, 2014 [facility] [place] [facility] [address] [facility] [id number] [place] [address]- 4145 18 May, 2014 [facility] [place] [facility] [address] [facility] [id number] [place] [address]- 8682 18 May, 2014 [facility] [place] [facility] [address] [facility] [id number] [place] [address]- 8630 13 May, 2014 [facility] [place] [facility] [address] [id number] [address] 4031 13 May, 2014 [facility] [place] [facility] [id number] [address] May, 2014 [facility] [place] [facility] [address] [facility] [id number], [place] [address] May, 2014 [facility] [place] [facility] [id number] [place] [address] 9555 May, 2014 [facility] [place] [facility] [address] [id number] [address] May, 2014 [facility] [place] [facility] [address] [facility] [id number], [place] [address] 9007 May, 2014 [facility] [place] [facility] [address] [facility] [id number], [place] [address]- 1090 May, 2014 [facility] [place] [facility] [address] [facility] [id number] [place] [address]- 7221 05 May, 2014 [facility] [place] [facility] [address] [facility] [id number], [place] [address] 2121 05 May, 2014 [facility] [place] [facility] [id number] [address] 3522 May, [facility] [place] [facility] [address] [id number] [place] [address]- 7890 May, [facility] [place] [facility] [address] [id number] [place] [address]- 6239 May, [facility] [place] [facility] [address] [id number] [place] [address] 1919 May, [facility] [place] [facility] [address] [id number] [place] [address]- 8633 May, [facility] [place] [facility] [address] [id number] [place] [address]- 3074 Apr, [facility] [place] [facility] [address] [id number] [place] [address]- 0514 Apr, [facility] [place] [facility] [address] [id number] [place] [address]- 8345 Apr, [facility] [place] [facility] [address] [id number] [place] [address]- 0348 Apr, [facility] [place] [facility] [address] [id number] [place] [address]- 7993 Apr, [facility] [place] [facility] [address] [id number] [place] [address]- 2469 Apr, [facility] [place] [facility] [address] [id number] [place] [address]- 1213 Apr, [facility] [place] [facility] [address] [id number], [place] [address]- 1151 Apr, [facility] [place] [facility] [address] [id number], [place] [address]- 6959 Apr, [facility] [place] [facility] [address] [id number], [place] [address]- 1508 Apr, [facility] [place] [facility] [address] [id number], [place] [address]- 5312 Apr, [facility] [place] [facility] [address] [id number] [place] [address]- 8556 Apr, [facility] [place] [facility] [address] [id number] [place] [address]- 3583 Apr, [facility] [place] [facility] [address] [id number] [place] [address]- 0120 Apr, [facility] [place] [facility] [address] [id number] [place] [address]- 2709 Apr, [facility] [place] [facility] [address] [id number] [place] [address]- 9111 Apr, [facility] [place] [facility] [address] [id number] [place] [address]- 1299 Apr, [facility] [place] [facility] [address] [id number] [place] [address]- 7379 Apr, [facility] [place] [facility] [address] [id number] [place] [address]- 7494 Apr, [facility] [place] [facility] [address] [id number] [place] [address]- 1285 Apr, [facility] [place] [facility] [address] [id number] [place] [address]- 0855 Mar, [facility] [place] [facility] [address] [id number] [place] [address]- 3787 Mar, [facility] [place] [facility] [address] [id number] [place] [address]- 8493 Mar, [facility] [place] [facility] [address] [id number] [place] [address]- 5351 Mar, [facility] [place] [facility] [address] [id number] [place] [address] Mar, [facility] [place] [facility] [address] [id number] [place] [address] Mar, [facility] [place] [facility] [address] [id number] [place] [address]- 8748 18 Mar, 2014 [facility] [place] [facility] [address] [id number] [place] [address]- 6413 18 Mar, 2014 [facility] [place] [facility] [address] [id number] [place] [address]- 1586 15 Mar, 2014 [facility] [place] [facility] [address] [id number] [place] [address]46 15 Mar, 2014 [facility] [place] [facility] [address] [id number] [place] [address]- 1243 15 Mar, 2014 [facility] [place] [facility] [address] [id number] [place] [address]- 1678 Mar, [facility] [place] [facility] [address] [id number] [place] [address]- 1844 Mar, [facility] [place] [facility] [address] [id number] [place] [address]- 2331 Mar, [facility] [place] [facility] [address] [id number] [place] [address]- 4059 Mar, [facility] [place] [facility] [address] [id number] [place] [address]- 7080 Mar, [facility] [place] [facility] [address] [id number] [place] [address]- 3331 Feb, [facility] [place] [facility] [address] [id number] [place] [address]- 7747 Feb, [facility] [place] [facility] [address] [id number], [place] [address]- 7487 Feb, [facility] [place] [facility] [address] [id number] [place] [address]- 1320 Feb, [facility] [place] [facility] [address] [id number] [place] [address]- 6365 Feb, [facility] [place] [facility] [address] [id number] [place] [address]- 1331 Feb, [facility] [place] [facility] [address] [id number] [place] [address]- 5950 19 Feb, 2014 [facility] [place] [facility] [address] [id number] [place] [address]- 3659 18 Feb, 2014 [facility] [place] [facility] [address] [id number] [place] [address]- 8843 18 Feb, 2014 [facility] [place] [facility] [address] [id number] [place] [address]- 7030 17 Feb, 2014 [facility] [place] [facility] [address] [id number] [place] [address]- 8664 17 Feb, 2014 [facility] [place] [facility] [address] [id number] [place] [address]- 1138 17 Feb, 2014 [facility] [place] [facility] [address] [id number] [place] [address]- 3608 17 Feb, 2014 [facility] [place] [facility] [address] [id number] [place] [address]- 6619 14 Feb, 2014 [facility] [place] [facility] [address] [id number] [place] [address]- 6136 14 Feb, 2014 [facility] [place] [facility] [address] [id number] [place] [address]- 4664 14 Feb, 2014 [facility] [place] [facility] [address] [id number] [place] [address]- 3189 14 Feb, 2014 [facility] [place] [facility] [address] [id number] [place] [address]- 7960 10 Feb, 2014 [facility] [place] [facility] [address] [id number] [place] [address]- 4676 10 Feb, 2014 [facility] [place] [facility] [address] [id number] [place] [address]- 8252 04 Feb, 2014 [facility] [place] [facility] [address] [id number] [place] [address]- 1805 Feb, [facility] [place] [facility] [address] [id number] [place] [address]- 7795 30 Jan, 2014 [facility] [place] [facility] [address] [id number] [place] [address]- 7586 Jan, 2013 [facility] [place] [facility] [address] [id number] [place] [address]- 7943 Jan, 2013 [facility] [place] [facility] [address] [id number] [place] [address]- 6772 Jan, [facility] [place] [facility] [address] [id number] [place] [address]- 0392 Jan, [facility] [place] [facility] [address] [id number] [place] [address]- 6074 Jan, [facility] [place] [facility] [address] [id number] [place] [address]- 1572 Jan, [facility] [place] [facility] [address] [id number] [place] [address]- 0543 Jan, [facility] [place] [facility] [address] [id number] [place] [address]- 5542 Jan, [facility] [place] [facility] [address] [id number] [place] [address]- 9998 Jan, [facility] [place] [facility] [address] [id number] [place] [address]- 4034 Jan, [facility] [place] [facility] [address] [id number] [place] [address]- 4219 Jan, [facility] [place] [facility] [address] [id number], [place] [address]- 3686 Jan, [facility] [place] [facility] [address] [id number] [place] [address]- 4980 Jan, [facility] [place] [facility] [address] [id number] [place] [address]- 6824 15 Jan, 2014 [facility] [place] [facility] [address] [id number] [place] [address]- 9056 15 Jan, 2014 [facility] [place] [facility] [address] [id number], [place] [address]- 8415 14 Jan, 2014 [facility] [place] [facility] [address] [id number] [place] [address]- 1003 14 Jan, 2014 [facility] [place] [facility] [address] [id number] [place] [address]- 9862 13 Jan, 2014 [facility] [place] [facility] [address] [id number] [place] [address]- 6679 Jan, [facility] [place] [facility] [address] [id number] [place] [address]- 7726 Jan, [facility] [place] [facility] [address] [id number] [place] [address]- 7817 Jan, [facility] [place] [facility] [address] [id number] [place] [address]- 0933 10 Jan, 2014 [facility] [place] [facility] [address] [id number] [place] [address]- 5914 Jan, [facility] [place] [facility] [address] [id number] [place] [address]- 5801 Jan, [facility] [place] [facility] [address] [id number] [place] [address]- 9523 25 Dec, 2013 [facility] [place] [facility] [address] [id number] [place] [address]- 1611 25 Sep, 2013 [facility] [place] [facility] [address] [id number], [place] [address]- 3889 23 Dec, 2013 [facility] [place] [facility] [address] [id number], [place] [address]- 6230 23 Sep, 2013 [facility] [place] [facility] [address] [id number] [place] [address]- 7042 19 Sep, 2013 [facility] [place] [facility] [address] [id number] [place] [address]- 6954 19 Sep, 2013 [facility] [place] [facility] [address] [id number] [place] [address]- 2942 17 Sep, 2013 [facility] [place] [facility] [address] [id number] [place] [address]- 0084 17 Sep, 2013 [facility] [place] [facility] [address] [id number] [place] [address]- 7786 09 Sep, 2013 [facility] [place] [facility] [address] [id number] [place] [address]- 1856 09 Sep, 2013 [facility] [place] [facility] [address] [id number] [place] [address]- 6506 08 Sep, 2013 [facility] [place] [facility] [address] [id number] [place] [address]- 8271 08 Sep, 2013 [facility] [place] [facility] [address] [id number] [place] [address]- 0650 04 Sep, 2013 [facility] [place] [facility] [address] [id number] [place] [address]- 5586 04 Sep, 2013 [facility] [place] [facility] [address] [id number] [place] [address]- 9579 02 Dec, 2013 [facility] [place] [facility] [address] [id number] [place] [address]- 6216 02 Dec, 2013 [facility] [place] [facility] [address] [id number] [place] [address]- 3066 Dec, 2013 [facility] [place] [facility] [address] [id number] [place] [address]- 3241 Dec, 2013 [facility] [place] [facility] [address] [id number] [place] [address]- 9024 Nov, [facility] [place] [facility] [address] [id number] [place] [address]- 2540 Nov, [facility] [place] [facility] [address] [id number] [place] [address]- 2144 Nov, [facility] [place] [facility] [address] [id number] [place] [address]- 5435 Nov, [facility] [place] [facility] [address] [id number] [place] [address]- 8312 Nov, [facility] [place] [facility] [address] [id number] [place] [address]- 4680 Nov, [facility] [place] [facility] [address] [id number] [place] [address]- 2557 Nov, [facility] [place] [facility] [address] [id number] [place] [address]- 9953 Nov, [facility] [place] [facility] [address] [id number] [place] [address]- 0440 Nov, [facility] [place] [facility] [address] [id number] [place] [address]- 6007 Nov, [facility] [place] [facility] [address] [id number] [place] [address]- 8505 Nov, [facility] [place] [facility] [address] [id number] [place] [address]- 7178 Nov, [facility] [place] [facility] [address] [id number] [place] [address]- 7935 Oct, [facility] [place] [facility] [address] [id number] [place] [address]- 3255 Oct, [facility] [place] [facility] [address] [id number] [place] [address]- 1491 Oct, [facility] [place] [facility] [address] [id number] [place] [address]- 1492 Oct, [facility] [place] [facility] [address] [id number] [place] [address]- 5726 Oct, [facility] [place] [facility] [address] [id number] [place] [address]- 5313 Oct, [facility] [place] [facility] [address] [id number] [place] [address]- 3440 Oct, [facility] [place] [facility] [address] [id number] [place] [address]- 3997 Oct, [facility] [place] [facility] [address] [id number] [place] [address]- 4475 22 Oct, 2013 [facility] [place] [facility] [address] [id number] [place] [address]- 5410 22 Oct, 2013 [facility] [place] [facility] [address] [id number] [place] [address]- 1048 16 Oct, 2013 [facility] [place] [facility] [address] [id number] [place] [address]- 9403 16 Oct, 2013 [facility] [place] [facility] [address] [id number] [place] [address]- 5350 14 Oct, 2013 [facility] [place] [facility] [address] [id number] [place] [address]- 7534 14 Oct, 2013 [facility] [place] [facility] [address] [id number] [place] [address]- 1451 Oct, [facility] [place] [facility] [address] [id number] [place] [address]- 9991 Oct, [facility] [place] [facility] [address] [id number] [place] [address]- 6722 Oct, [facility] [place] [facility] [address] [id number] [place] [address]- 3714 27 Sep, 2013 [facility] [place] [facility] [address] [id number] [place] [address]- 4977 27 Sep, 2013 [facility] [place] [facility] [address] [id number] [place] [address]- 2608 Sep, [facility] [place] [facility] [address] [id number] [place] [address]- 8098 20 Sep, 2013 [facility] [place] [facility] [address] [id number] [place] [address]- 6333 18 Sep, 2013 [facility] [place] [facility] [address] [id number] [place] [address]- 3000 18 Sep, 2013 [facility] [place] [facility] [address] [id number] [place] [address]- 6655 17 Sep, 2013 [facility] [place] [facility] [address] [id number] [place] [address]- 5176 17 Sep, 2013 [facility] [place] [facility] [address] [id number] [place] [address]- 7817 Sep, [facility] [place] [facility] [address] [id number] [place] [address]- 9467 Sep, [facility] [place] [facility] [address] [id number] [place] [address]- 2584 Sep, [facility] [place] [facility] [address] [id number] [place] [address]- 6113 Sep, [facility] [place] [facility] [address] [id number] [place] [address]- 0289 Sep, [facility] [place] [facility] [address] [id number] [place] [address]- 4680 Sep, [facility] [place] [facility] [address] [id number] [place] [address]- 3319 Sep, [facility] [place] [facility] [address] [id number] [place] [address]- 7536 Sep, [facility] [place] [facility] [address] [id number] [place] [address]- 6546 Sep, [facility] [place] [facility] [address] [id number] [place] [address]- 2119 Sep, [facility] [place] [facility] [address] [id number] [place] [address]- 1759 Sep, [facility] [place] [facility] [address] [id number] [place] [address]- 9400 05 Sep, 2013 [facility] [place] [facility] [address] [id number] [place] [address]- 6904 Sep, [facility] [place] [facility] [address] [id number] [place] [address]- 6284 03 Sep, 2013 [facility] [place] [facility] [address] [id number] [place] [address]- 4322 August, [facility] [address] [id number] [place] [address]- 5660 August, [facility] [place] [facility] [address] [id number] [place] [address]- 6013 August, [facility] [place] [facility] [address] [id number] [place] [address]- 4214 August, [facility] [place] [facility] [address] [id number] [place] [address]- 5288 August, [facility] [place] [facility] [address] [id number] [place] [address]- 1547 August, [facility] [place] [facility] [address] [id number] [place] [address]- 9432 August, [facility] [place] [facility] [address] [id number] [place] [address]- 0272 August, [facility] [place] [facility] [address] [id number] [place] [address]- 7133 August, [facility] [place] [facility] [address] [id number] [place] [address]- 5135 August, [facility] [place] [facility] [address] [id number] [place] [address]- 5186 August, [facility] [place] [facility] [address] [id number] [place] [address] Jul, [facility] [place] [facility] [address] [id number] [place] [address] Jul, [facility] [place] [facility] [address] [id number] [place] [address] Jul, [facility] [place] [facility] [address] [id number] [place] [address] Jul, [facility] [place] [facility] [address] [id number] [place] [address] Jul, [facility] [place] [facility] [address] [id number] [place] [address] 23 Jul, 2013 [facility] [place] [facility] [address] [id number] [place] [address] Jul, [facility] [place] [facility] [address] [id number] [place] [address] Jul, [facility] [place] [facility] [address] [id number] [place] [address] 2012 Jul, [facility] [place] [facility] [address] [id number] [place] [address] 18 Jul, 2013 [facility] [place] [facility] [address] [id number] [place] [address] 16 Jul, 2013 [facility] [place] [facility] [address] [id number] [place] [address] Jul, [facility] [place] [facility] [address] [id number] [place] [address] Jul, [facility] [place] [facility] [address] [id number] [place] [address] Jul, [facility] [place] [facility] [address] [id number] [place] [address] Jul, [facility] [place] [facility] [address] [id number] [place] [address] Jul, [facility] [place] [facility] [address] [id number] [place] [address] Jul, [facility] [place] [facility] [address] [id number] [place] [address] Jul, [facility] [place] [facility] [address] [id number] [place] [address] Jul, [facility] [place] [facility] [address] [id number] [place] [address]- [address]286 Jul, [facility] [place] [facility] [address] [id number] [place] [address]- [address]01 Jul, [facility] [place] [facility] [address] [id number] [place] [address]- [address] Jul, [facility] [place] [facility] [address] [id number] [place] [address] Jul, [facility] [place] [facility] [address] [id number] [place] [address] Jun, [facility] [place] [facility] [address] [id number] [place] [address] Jun, [facility] [place] [facility] [address] [id number] [place] [address] Jun, [facility] [place] [facility] [address] [id number] [place] [address] Jun, [facility] [place] [facility] [address] [id number] [place] [address] Jun, [facility] [place] [facility] [address] [id number] [place] [address]- [address] Jun, [facility] [place] [facility] [address] [id number] [place] [address] Jun, [facility] [place] [facility] [address] [id number] [place] [address]- [address] Jun, [facility] [place] [facility] [address] [id number] [place] [address] Jun, [facility] [place] [facility] [address] [id number] [place] [address] Jun, [facility] [place] [facility] [address] [id number] [place] [address] Jun, [facility] [place] [facility] [address] [id number] [place] [address] Jun, [facility] [place] [facility] [address] [id number] [place] [address] May, [facility] [place] [facility] [address] [id number], [place] [address] May, [facility] [address] [id number] [place] [address] Apr, [facility] [place] [facility] [address] [id number] [place] [address] 8949 Apr, [facility] [place] [facility] [address] [id number] [place] [address]- [address] Apr, [facility] [place] [facility] [address] [id number] [place] [address] 4064 Apr, [facility] [place] [facility] [address] [id number] [place] [address]- [address]20 Apr, [facility] [place] [facility] [address] [id number] [place] [address]- [address] Apr, [facility] [place] [facility] [address] [id number] [place] [address]- [address]165 Apr, [facility] [place] [facility] [address] [id number] [place] [address]- [address]36 Apr, [facility] [place] [facility] [address] [id number] [place] [address]- [address]177 Apr, [facility] [place] [facility] [address] [id number] [place] [address]- 6677 Apr, [facility] [place] [facility] [address] [id number] [place] [address]- [address]15 Apr, [facility] [place] [facility] [address] [id number] [place] [address]- [address]388 Mar, [facility] [place] [facility] [address] [id number] [place] [address]- [address]006 Mar, [facility] [place] [facility] [address] [id number] [place] [address]- 235[address] 16 Mar, 2013 [facility] [place] [facility] [address] [id number] [place] [address]- 9499 Mar, [facility] [place] [facility] [address] [id number] [place] [address]- [address]165 Feb, [facility] [place] [facility] [address] [id number] [place] [address]- 8037 Feb, [facility] [place] [facility] [address] [id number] [place] [address]- [address]34 Feb, [facility] [place] [facility] [address] [id number] [place] [address]- 7632 Feb, [facility] [place] [facility] [address] [id number] [place] [address]- [address] Feb, [facility] [place] [facility] [address] [id number] [place] [address]- [address]159 Feb, [facility] [place] [facility] [address] [id number] [place] [address]- 7722 Feb, [facility] [place] [facility] [address] [id number] [place] [address]- 3062 Feb, [facility] [place] [facility] [address] [id number] [place] [address]- 8615 Feb, [facility] [place] [facility] [address] [id number] [place] [address]- 8033 Feb, [facility] [place] [facility] [address] [id number] [place] [address]- 4253 Feb, [facility] [place] [facility] [address] [id number] [place] [address]- 5438 Jan, [facility] [place] [facility] [address] [id number] [place] [address]- 7030 Jan, [facility] [place] [facility] [address] [id number] [place] [address] Jan, [facility] [place] [facility] [address] [id number] [place] [address] Jan, [facility] [place] [facility] [address] [id number] [place] [address]- [address]878 10 Jan, 2013 [facility] [place] [facility] [address] [id number] [place] [address]- 0162 10 Jan, 2013 [facility] [place] [facility] [address] [id number] [place] [address]- 3729 03 Jan, 2013 [facility] [place] [facility] [address] [id number] [place] [address]- [address]204 02 Jan, 2013 [facility] [place] [facility] [address] [id number] [place] [address]- 1143 30 Dec, 2012 [facility] [place] [facility] [address] [id number] [place] [address]- 4224 25 Dec, 2012 [facility] [place] [facility] [address] [id number] [place] [address] 18 Dec, 2012 [facility] [place] [facility] [address] [id number] [place] [address] 17 Dec, 2012 [facility] [place] [facility] [address] [id number] [place] [address] 9022 17 Dec, 2012 [facility] [place] [facility] [address] [id number] [place] [address] 2602 16 Dec, 2012 [facility] [place] [facility] [address] [id number] [place] [address] 5822 13 Dec, 2012 [facility] [place] [facility] [address] [id number], [place] [address] 11 Dec, 2012 [facility] [place] [facility] [address] [id number], [place] [address] 05 Dec, 2012 [facility] [place] [facility] [address] [id number] [place] [address] 04 Dec, 2012 [facility] [place] [facility] [address] [id number] [place] [address]- 0[address] 30 Nov, 2012 [facility] [place] [facility] [address] [id number] [place] [address] 4507 29 Nov, 2012 [facility] [place] [facility] [address] [id number] [place] [address]- 6037 22 Nov, 2012 [facility] [place] [facility] [address] [id number] [place] [address]- 6455 16 Nov, 2012 [facility] [place] [facility] [address] [id number] [place] [address]- 0615 14 Nov, 2012 [facility] [place] [facility] [address] [id number] [place] [address]- 1294 Nov, [facility] [place] [facility] [address] [id number] [place] [address]- 55[address] 05 Nov, 2012 [facility] [place] [facility] [address] [id number] [place] [address]- 111[address] Oct, [facility] [place] [facility] [address] [id number] [place] [address]- 3308 Oct, [facility] [place] [facility] [address] [id number] [place] [address]- 4880 Oct, [facility] [place] [facility] [address] [id number] [place] [address]- 4320 17 Oct, 2012 [facility] [place] [facility] [address] [id number] [place] [address]- 9878 15 Oct, 2012 [facility] [place] [facility] [address] [id number] [place] [address]- 4455 Oct, [facility] [place] [facility] [address] [id number] [place] [address]- 3596 28 Sep, 2012 [facility] [place] [facility] [address] [id number] [place] [address]- 7[address] 28 Sep, 2012 [facility] [place] [facility] [address] [id number] [place] [address]- 7559 27 Sep, 2012 [facility] [place] [facility] [address] [id number] [place] [address]- 1569 14 Sep, 2012 [facility] [place] [facility] [address] [id number] [place] [address]- 5026 13 Sep, 2012 [facility] [place] [facility] [address] [id number] [place] [address]- 3777 Sep, [facility] [address] [id number] [place] [address]- [address] Sep, [facility] [address] [id number] [place] [address] 1641 Sep, [facility] [address] [id number] [place] [address]- 6939 Sep, [facility] [address] [id number] [place] [address]- 9067 August, [facility] [address] [id number] [place] [address]- 1791 August, [facility] [address] [id number] [place] [address]- 2313 August, [facility] [address] [id number] [place] [address]- 0179 August, [facility] [address] [id number] [place] [address]- 3407 August, [facility] [address] [id number] [place] [address]- 5587 August, [facility] [address] [id number] [place] [address]- 6975 August, [facility] [address] [id number] [place] [address]- 4190 August, [facility] [address] [id number] [place] [address]- 3091 Jul, [facility] [address] [id number] [place] [address]396 Jul, [address] [id number] Jul [facility] [address] [id number] [place] [address]- 1314 Jun, [facility] [address] [id number] [place] [address]- 2775 Jun, [facility] [place] [facility] [address] [id number] [place] [address]- 3741 Jun, [facility] [place] [facility] [address] [id number] [place] [address]- 5008 Jun, [facility] [place] [facility] [address] [id number] [place] [address]- 3216 Jun, [facility] [address] [id number] [place] [address]- 1553 Jun, [facility] [place] [facility] [address] [id number] [place] [address]- 7976 May, [facility] [place] [facility] [address] [id number] [place] [address]- 6306 May, [facility] [place] [facility] [address] [id number] [place] [address]- 5778 May, [facility] [place] [facility] [address] [id number] [place] [address]- 8308 May, [facility] [place] [facility] [address] [id number] [place] [address]- 7597 May, [facility] [place] [facility] [address] [id number], [place] [address] 78[address] Apr, [facility] [place] [facility] [address] [id number], [place] [address] 1296 Apr, [facility] [place] [facility] [address] [id number] [place] [address]- 9759 Apr, [facility] [place] [facility] [address] [id number] [place] [address]- 0136 Apr, [facility] [place] [facility] [address] [id number] [place] [address]- 9886 Apr, [facility] [place] [facility] [address] [id number] [place] [address]- 9353 02 Apr, 2012 [facility] [address] [id number] [place] [address]- 9266 26 Mar, 2012 [facility] [place] [facility] [address] [id number] [place] [address]- 1726 Mar, [facility] [place] [facility] [address] [id number] [place] [address]- 9526 20 Mar, 2012 [facility] [place] [facility] [address] [id number] [place] [address] 2546 Mar, [facility] [place] [facility] [address] [id number] [place] [address]- 0912 Mar, [facility] [place] [facility] [address] [id number] [place] [address]- 9387 Mar, [facility] [address] [id number] [place] [address]- 4071 18 Mar, 2012 [facility] [place] [facility] [address] [id number] [place] [address]- 5583 Mar, [facility] [place] [facility] [address] [id number] [place] [address]- 5586 Mar, [facility] [place] [facility] [address] [facility] [id number] [place] [address]- 3624 05 Mar, 2012 [facility] [place] [facility] [address] [id number] [place] [address]- 1076 Mar, [facility] [place] [facility] [address] [id number] [place] [address]- 1727 Feb, [facility] [place] [facility] [address] [id number] [place] [address]- 5536 Feb, [facility] [place] [facility] [address] [id number] [place] [address]- 3666 Feb, [facility] [place] [facility] [address] [id number] [place] [address]- 5305 Feb, [facility] [place] [facility] [address] [id number] [place] [address]- 7767 Feb, [facility] [place] [facility] [address] [id number] [place] [address]- 1874 Feb, [facility] [place] [facility] [address] [id number] [place] [address]- 5742 Feb, [facility] [place] [facility] [id number] [place] [address], [place] [address]- 4409 Feb, [facility] [place] [facility] [address] [id number] [place] [address]- 6054 Feb, [facility] [place] [facility] [address] [id number] [place] [address]- 7427 Feb, [facility] [place] [facility] [address] [id number] [place] [address]- 0299 Feb, [facility] [place] [facility] [address] [id number] [place] [address]- 5032 Jan, [facility] [place] [facility] [address] [id number] [place] [address]- 1489 Jan, [facility] [place] [facility] [address] [id number] [place] [address]- 2337 Jan, [facility] [place] [facility] [address] [id number] [place] [address]- 2939 Jan, [facility] [place] [facility] [address] [id number], [place] [address]- 5628 Jan, [facility] [place] [facility] [address] [id number] [place] [address]- 8871 Jan, [facility] [place] [facility] [address] [id number] [place] [address]- 0911 Jan, [facility] [place] [facility] [address] [id number], [place] [address]- 5140 24 Dec, 2011 [facility] [place] [facility] [address] [id number], [place] [address]- 7545 17 Dec, 2011 [facility] [place] [facility] [address] [id number] [place] [address]- 6977 13 Dec, 2011 [facility] [place] [facility] [address] [id number] [place] [address]- 8396 12 Dec, 2011 [facility] [place] [facility] [address] [id number] [place] [address]- 0136 23 Nov, 2011 [facility] [place] [facility] [address] [id number] [place] [address]- 9502 Nov, [facility] [place] [facility] [address] [id number] [place] [address]- 2940 Nov, [facility] [place] [facility] [address] [id number] [place] [address]- 8041 15 Nov, 2011 [facility] [place] [facility] [address] [id number] [place] [address]- 2925 Nov, [facility] [place] [facility] [address] [id number] [place] [address]- 5278 Nov, [facility] [place] [facility] [address] [id number] [place] [address]- 2867 Nov, [facility] [place] [facility] [address] [id number] [place] [address]- 6129 Nov, [facility] [place] [facility] [address] [id number] [place] [address]- 7862 Nov, [facility] [place] [facility] [address] [id number] [place] [address]- 0439 Nov, [facility] [place] [facility] [address] [id number] [place] [address]- 2805 Nov, [facility] [place] [facility] [address] [id number] [place] [address]- 2550 Nov, [facility] [place] [facility] [address] [id number] [place] [address]- 9024 Nov, [facility] [place] [facility] [address] [id number] [place] [address]- 7931 Oct, [facility] [place] [facility] [address] [id number] [place] [address]- 6267 Oct, [facility] [place] [facility] [address] [id number] [place] [address]- 9896 Oct, 2011 [facility] [address] [id number] [place] [address]- 5297 Oct, 2011 [facility] [place] [facility] [address] [id number] [place] [address]- 1506 Oct, [facility] [place] [facility] [address] [id number] [place] [address]- 5187 Oct, [facility] [place] [facility] [address] [id number] [place] [address]- 8649 Oct, [facility] [place] [facility] [address] [id number] [place] [address]- 3410 Oct, [facility] [place] [facility] [address] [id number] [place] [address]- 1600 Oct, [facility] [place] [facility] [address] [id number] [place] [address]- 6672 Sep, [facility] [place] [facility] [address] [id number] [place] [address]- 9259 Sep, [facility] [place] [facility] [address] [id number] [place] [address]- 5764 Sep, [facility] [place] [facility] [address] [id number] [place] [address]- 7284 Sep, [facility] [place] [facility] [address] [id number] [place] [address]- 1629 Sep, [facility] [place] [facility] [address] [id number] [place] [address]- 6148 Sep, [facility] [place] [facility] [address] [id number] [place] [address]- 3595 Sep, [facility] [place] [facility] [address] [id number], [place] [address] 1571 Sep, [facility] [place] [facility] [address] [facility] [id number], [place] [address]- 0325 August, [facility] [place] [facility] [address] [id number], [place] [address]- 0686 August, [facility] [place] [facility] [address] [facility] [id number], [place] [address]- 8804 August, [facility] [place] [facility] [address] [facility] [id number], [place] [address]- 8961 August, [facility] [place] [facility] [address] [facility] [id number] [address]12 August, [facility] [place] [facility] [id number] [address] August, [facility] [place] [facility] [id number], [place] [address]- 2475 August, [facility] [place] [facility] [address] [id number] [address]663 August, [facility] [place] [facility] [address] [id number] [address] 1505 August, [facility] [place] [facility] [address] [id number], [place] [address]- 0092 August, [facility] [place] [facility] [address] [id number], [place] [address]- 4433 August, [facility] [place] [facility] [address] [id number], [place] [address]- 5539 August, [facility] [place] [facility] [address] [id number], [place] [address]- 3215 Oct, IMMUNIZATIONS No Known Immunizations SOCIAL HISTORY Never Assessed REASON FOR VISIT Diabetes--tcuppettRN PLAN OF CARE Activity Details Follow Up next available Reason:well woman VITAL SIGNS Height 63 in 2017-07-22 Weight 334.0 lbs 2017-07-22 Temperature 98.0 degrees Fahrenheit 2017-07-22 Heart Rate 106 bpm 2017-07-22 Respiratory Rate 24 2017-07-22 Oximetry ambulating w/o o2:98 % 2017-07-22 BMI 59.16 kg/m2 2017-07-22 Blood pressure systolic 136 mmHg 2017-07-22 Blood pressure diastolic 84 mmHg 2017-07-22 MEDICATIONS Medication Instructions Dosage Frequency Start Date End Date Duration Status Atorvastatin Calcium 40 MG Orally Once a day 1 tablet 24h Active Potassium Chloride Eugenia ER 10 MEQ Orally Once a day 1 tablet with food 24h Active Lyrica 150 MG Orally twice a day 2 capsules 12h Active Lasix 40 MG Orally Once a day 1 tablet 24h Active Ranitidine HCl 150 MG Orally twice a day 1 tablet 12h Active Mirtazapine 15 MG Orally Once a day 1 tablet at bedtime 24h May, 30 day(s) Active Sucralfate 1 GM Orally 4 times a day 1 tablet at bedtime on an empty stomach before meals 6h Active Cyclobenzaprine HCl 10 MG Orally Three times a day 1 tablet as needed 8h Active Ondansetron HCl 4 MG Orally 3 times a day 1 tablet as needed 8h Active Guaifenesin 400 MG Orally every 4 hrs 1 tablet as needed 4h May, Not-Taking Gemfibrozil 600 MG Orally Twice a day 1 tablet 12h Active Ibuprofen 600 MG Orally Three times a day prn 1 tablet Jul, Sep, 30 day(s) Active Lotrisone 1-0.05 % Externally Twice a day 1 application to affected area 12h Not-Taking Triamcinolone Acetonide 0.1 % Externally Twice a day 1 application to affected area as needed 12h Active Montelukast Sodium 10 MG Orally Once a day 1 tablet in the evening 24h Active Womens One Daily - Active Benadryl Allergy 25 MG Orally 2 times a day 1 capsule 12h Active Metformin HCl 1000 MG Orally Twice a day 1 tablet with meals 12h Active RESULTS Name Result Date Reference Range A1C (IN HOUSE) 2017-07-22 A1C IN HOUSE 5.3 4.3 - 5.6 % Previous A1c 8.9 Lot [id number] Exp date 05/2019 Xray : Foot, Right 3 views (IN HOUSE) 2017-07-22 PROCEDURES Procedure Date Ordered Result Body Site GLYCATED HEMOGLOBIN TEST July 22, 2017 X-RAY EXAM OF FOOT July 22, 2017 INSTRUCTIONS MEDICATIONS ADMINISTERED No Known Medications [...] Surgical History bladder surgery Hospitalization History [facility] for right groin pain 05/2011 Hospitalization History [facility] for wound on buttocks 08/2012 Hospitalization History Via [facility], hypoxia secondary to pneumonia 12/02-12/09 Hospitalization History Pneumonia, elevated CO2 on Bipap was in ICU 08/2013 Hospitalization History Hypoxia, Exacerbation COPD, Chest pain 09/05/15 Hospitalization History suicidal ideations-[place] 12/28 Hospitalization History hypoxia--[facility] 02/13/2016 Hospitalization History shortness of breath at june 2016 Hospitalization History Shortness of breath at august 2016 Hospitalization History SOB, chest pain at 12/2016
--- OUTSIDE RECORDS SUMMARY | 2017-11-24 17:33 | XMS REPORT ---
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 2014 [facility] [id number] [place] [address] 42309 2546 21 Dec, 2014 [facility] [id number] [place] [address] 64293 2543 17 Dec, 2014 Affective disorder 296.90 [facility] [id number] [place] [address] 09689 2546 14 Dec, 2014 [facility] [id number] [place] [address] 01155 2543 10 Dec, 2014 Affective disorder 296.90 [facility] [id number] [place] [address] 00636 2541 04 Dec, 2014 [facility] [id number] [place] [address] 07330 2540 04 Dec, 2014 [facility] [id number] [address] 2548 04 Dec, 2014 [facility] [id number] [place] [address] 63377 2546 03 Dec, 2014 [facility] [id number] [address] 254 Nov, 2014 Affective disorder 296.90 [facility] [id number] [place] [address] 10243 2546 27 Nov, 2014 [facility] [id number] [address] 2546 Nov, 2014 Affective disorder 296.90 [facility] [id number] [place] [address] 43027- 8027 Nov, Diarrhea 787.91 [facility] [id number] [place] [address] 12612 2546 Nov, [facility] [id number] [place] [address] 84726 2546 Nov, Diarrhea 787.91 [facility] [id number] [place] [address] 33462 2546 Nov, Diarrhea 787.91 and Hyperlipidemia 272.4 [facility] [id number] [place] [address] 72133 2546 Nov, Diarrhea 787.91 [facility] [id number] [place] [address] 28538 2546 Nov, Affective disorder 296.90 [facility] [id number] [place] [address] 62741 2546 Nov, Affective disorder 296.90 [facility] [id number] [place] [address] 05699 2546 Nov, Affective disorder 296.90 [facility] [id number] [place] [address] 97884- 9837 Nov, [facility] [id number] [address] 2542 Nov, [facility] [id number] [place] [address] 13405- 1962 Nov, [facility] [id number] [place] [address] 13604 2545 Nov, Episodic mood disorder 296.90 [facility] [id number] [place] [address] 20323 2546 Nov, [facility] [id number] [address] 2546 Nov, [facility] [id number] [place] [address] 989354- 6038 Nov, [facility] [id number] [address]- 1237 Nov, [facility] [id number] [place] [address] 17817- 3229 Nov, [facility] [id number], [place] [address]- 5491 Nov, Lymphedema 457.1 ; Hyperlipidemia 272.4 ; Essential hypertension, benign 401.1 and Numbness of toes 782.0 [facility] [id number] [address]- 2977 Nov, Episodic mood disorder 296.90 [facility] [id number] [place] [address] 80703- 8058 Oct, [facility] [id number] [address]- 7169 Oct, [facility] [id number], [place] [address]- 2279 Oct, [facility] [id number], [place] [address]- 6311 Oct, [facility] [id number], [place] [address]- 0375 Oct, [facility] [id number], [place] [address]- 5107 Oct, [facility] [id number], [place] [address]- 9765 Oct, [facility] [id number], [place] [address]- 6000 Oct, [facility] [id number] 8829 Oct, Episodic mood disorder 296.90 [facility] [id number] [address]- 8150 Sep, [facility] [id number], [place] [address]- 4992 29 Sep, 2014 [facility] [id number], [place] [address]- 2857 Sep, [facility] [id number], [place] [address]- 5985 Sep, [facility] [id number] [place] [address] 25620- 6032 Sep, [facility] [id number] [address]- 8563 Sep, Episodic mood disorder 296.90 [facility] [id number] [place] [address] 72236- 1284 19 Sep, 2014 Unspecified episodic mood disorder 296.90 [facility] [id number], [place] [address]- 1647 18 Sep, 2014 [facility] [id number], [place] [address]- 4528 18 Sep, 2014 [facility] [id number], [place] [address]- 0127 16 Sep, 2014 Episodic mood disorder 296.90 [facility] [id number] [address]- 4390 15 Sep, 2014 [facility] [id number], [place] [address]- 2927 15 Sep, 2014 [facility] [id number], [place] [address]- 6006 12 Sep, 2014 [facility] [id number] [address]- 4689 09 Sep, 2014 Hematemesis 578.0 and Vomiting 787.03 [facility] [id number], [place] [address]- 1653 09 Sep, 2014 Episodic mood disorder 296.90 [facility] [id number] [place] [address] 18451- 8384 Sep, [facility] [id number], [place] [address]- 6911 Sep, [facility] [id number] [place] [address] 776003- 7478 Sep, Diabetes mellitus without mention of complication, type II or unspecified type, not stated as uncontrolled 250.00 and Other chronic pain 338.29 [facility] [id number] [place] [address] 98596- 7654 Sep, Episodic mood disorder 296.90 [facility] [id number] [place] [address] 93724- 3400 Sep, [facility] [id number] [place] [address] 93248- 3399 Sep, Episodic mood disorder 296.90 [facility] [id number] [place] [address] 38318- 1952 Sep, [facility] [id number] [place] [address] 90398- 3282 August, [facility] [id number] [place] [address] 59661- 8927 August, [facility] [id number] [address]- 3728 August, Episodic mood disorder 296.90 [facility] [id number] [address]- 6714 August, [facility] [id number] [address]- 9487 August, Unspecified episodic mood disorder 296.90 [facility] [id number] [address]- 9394 August, Vomiting 787.03 [facility] [id number] [address]- 1625 August, [facility] [id number] [place] [address], [place] [address]- 7498 August, [facility] [place] [facility] [address] [id number] [place] [address]- 4230 August, [facility] [place] [facility] [address] [id number] [place] [address]- 7207 August, [facility] [place] [facility] [address] [id number] [place] [address]- 1064 August, [facility] [place] [facility] [address] [id number] [place] [address]- 8947 Jul, [facility] [place] [facility] [address] [id number] [place] [address]- 1105 Jul, [facility] [place] [facility] [address] [id number] [place] [address]- 0287 Jul, [facility] [place] [facility] [address] [id number] [place] [address]- 6927 30 Jun, 2014 [facility] [place] [facility] [address] [id number] [place] [address]- 7720 Jun, [facility] [place] [facility] [address] [id number] [place] [address]- 7762 Jun, [facility] [place] [facility] [address] [id number] [place] [address]- 6363 Jun, [facility] [place] [facility] [address] [id number] [place] [address]- 3675 30 Jun, 2014 [facility] [place] [facility] [address] [id number] [place] [address]- 9245 30 Jun, 2014 [facility] [place] [facility] [address] [id number] [place] [address]- 3505 30 Jun, 2014 [facility] [place] [facility] [address] [id number] [place] [address]- 8701 30 Jun, 2014 [facility] [place] [facility] [address] [id number] [place] [address]- 8434 Jun, [facility] [place] [facility] [address] [id number] [place] [address]- 6954 Jun, [facility] [place] [facility] [address] [id number] [place] [address]- 8443 Jun, [facility] [place] [facility] [address] [id number] [place] [address]- 3724 Jun, [facility] [place] [facility] [address] [id number] [place] [address] Jun, [facility] [place] [facility] [address] [id number] [place] [address] Jun, [facility] [place] [facility] [address] [id number] [place] [address] Jun, [facility] [place] [facility] [address] [id number] [place] [address] Jun, [facility] [place] [facility] [address] [id number] [place] [address] Jun, [facility] [place] [facility] [address] [id number] [place] [address] Jun, [facility] [place] [facility] [address] [id number] [place] [address] Jun, [facility] [place] [facility] [address] [id number] [place] [address] Jun, [facility] [place] [facility] [address] [id number] [place] [address] Jun, [facility] [place] [facility] [address] [id number] [place] [address] Jun, [facility] [place] [facility] [address] [id number] [place] [address] Jun, [facility] [place] [facility] [address] [id number] [place] [address] Jun, [facility] [place] [facility] [address] [id number] [place] [address] 20 Jun, 2014 [facility] [place] [facility] [address] [id number] [place] [address]- [address] 19 Jun, 2014 [facility] [place] [facility] [address] [id number] [place] [address] 19 Jun, 2014 [facility] [place] [facility] [address] [id number] [place] [address]- [address] 18 Jun, 2014 [facility] [place] [facility] [address] [id number] [place] [address] 18 Jun, 2014 [facility] [place] [facility] [address] [id number] [place] [address]- [address] 17 Jun, 2014 [facility] [place] [facility] [address] [id number] [place] [address] 17 Jun, 2014 [facility] [place] [facility] [address] [id number] [place] [address] 16 Jun, 2014 [facility] [place] [facility] [address] [id number] [place] [address] 16 Jun, 2014 [facility] [place] [facility] [address] [id number] [place] [address]- [address] 16 Jun, 2014 [facility] [place] [facility] [address] [id number] [place] [address]- [address] 16 Jun, 2014 [facility] [place] [facility] [address] [id number] [place] [address]- [address] 16 Jun, 2014 [facility] [place] [facility] [address] [id number] [place] [address]- [address] 16 Jun, 2014 [facility] [place] [facility] [address] [id number] [place] [address] 13 Jun, 2014 [facility] [place] [facility] [address] [id number] [place] [address] 13 Jun, 2014 [facility] [place] [facility] [address] [id number] [place] [address]- [address] 12 Jun, 2014 [facility] [place] [facility] [address] [id number] [place] [address] Jun, 2014 [facility] [place] [facility] [address] [id number] [place] [address] Jun, 2014 [facility] [place] [facility] [address] [id number] [place] [address] Jun, 2014 [facility] [place] [facility] [address] [id number] [place] [address]- [address] Jun, 2014 [facility] [place] [facility] [address] [id number] [place] [address] Jun, 2014 [facility] [place] [facility] [address] [id number] [place] [address] Jun, 2014 [facility] [place] [facility] [address] [id number] [place] [address]- [address] Jun, 2014 [facility] [place] [facility] [address] [id number] [place] [address]- [address] Jun, 2014 [facility] [place] [facility] [address] [id number] [place] [address] Jun, 2014 [facility] [place] [facility] [address] [id number] [place] [address] Jun, 2014 [facility] [place] [facility] [address] [id number] [place] [address] Jun, [facility] [place] [facility] [address] [id number] [place] [address]- [address] Jun, 2014 [facility] [place] [facility] [address] [id number] [place] [address] Jun, 2014 [facility] [place] [facility] [address] [id number] [place] [address]- [address] Jun, 2014 [facility] [place] [facility] [address] [id number] [place] [address] Jun, 2014 [facility] [place] [facility] [address] [id number] [place] [address]- [address] Jun, [facility] [place] [facility] [address] [id number] [place] [address] Jun, [facility] [place] [facility] [address] [facility] [id number] [place] [address] May, 2014 [facility] [place] [facility] [address] [facility] [id number] [place] [address]- [address] May, 2014 [facility] [place] [facility] [address] [facility] [id number] [place] [address] May, 2014 [facility] [place] [facility] [address] [id number] [place] [address] 8543 May, 2014 [facility] [place] [facility] [address] [facility] [id number] [place] [address] 4187 May, 2014 [facility] [place] [facility] [address] [facility] [facility] [id number] [place] [address] 9638 May, 2014 [facility] [place] [facility] [address] [facility] [id number] [place] [address] 1846 May, 2014 [facility] [place] [facility] [address] [facility] [facility] [id number] [place] [address] 8276 May, 2014 [facility] [place] [facility] [address] [facility] [facility] [id number] [place] [address] 7861 May, 2014 [facility] [place] [facility] [address] [facility] [id number] [place] [address] 2756 May, 2014 [facility] [place] [facility] [address] [facility] [id number] [place] [address] 1280 May, 2014 [facility] [place] [facility] [address] [facility] [facility] [id number] [place] [address] 1375 May, 2014 [facility] [place] [facility] [address] [facility] [id number] [place] [address]- 5266 May, 2014 [facility] [place] [facility] [address] [facility] [facility] [id number] [place] [address]- 2196 May, 2014 [facility] [place] [facility] [address] [id number] [place] [address]- 1070 May, 2014 [facility] [place] [facility] [address] [id number] [place] [address]- 5416 May, 2014 [facility] [place] [facility] [address] [id number] [place] [address]- 6783 May, 2014 [facility] [place] [facility] [address] [id number] [place] [address]- 0276 May, 2014 [facility] [place] [facility] [address] [id number] [place] [address]- 5126 May, 2014 [facility] [place] [facility] [address] [id number] [place] [address]- 4905 May, 2014 [facility] [place] [facility] [address] [facility] [id number] [place] [address]- 0695 May, 2014 [facility] [place] [facility] [address] [id number], [place] [address] May, 2014 [facility] [place] [facility] [address] [facility] [id number] [place] [address]- 7203 May, 2014 [facility] [place] [facility] [address] [facility] [facility] [id number] [place] [address]- 2494 May, 2014 [facility] [place] [facility] [address] [facility] [facility] [id number], [place] [address] 0950 May, 2014 [facility] [place] [facility] [address] [id number], [place] [address]- 6616 May, 2014 [facility] [place] [facility] [address] [facility] [id number] [place] [address]- 1873 May, 2014 [facility] [place] [facility] [address] [facility] [facility] [id number] [place] [address]- 9526 Apr, [facility] [place] [facility] [address] [facility] [id number] [place] [address]- 0481 Apr, [facility] [place] [facility] [address] [facility] [id number] [place] [address]- 9926 Apr, [facility] [place] [facility] [address] [id number] [place] [address]- 8383 Apr, [facility] [place] [facility] [address] [id number] [place] [address]- 9795 Apr, [facility] [place] [facility] [address] [id number] [place] [address]- 7540 Apr, [facility] [place] [facility] [address] [id number] [place] [address]- 2967 Apr, [facility] [place] [facility] [address] [id number] [place] [address]- 3784 Apr, [facility] [place] [facility] [address] [id number] [place] [address]- 0481 Apr, [facility] [place] [facility] [address] [id number] [place] [address]- 9044 Apr, [facility] [place] [facility] [address] [id number] [place] [address]- 1738 Apr, [facility] [place] [facility] [address] [id number] [place] [address]- 0594 Apr, [facility] [place] [facility] [address] [id number] [place] [address]- 4545 Apr, [facility] [place] [facility] [address] [id number] [place] [address]- 1671 Apr, [facility] [place] [facility] [address] [id number] [place] [address]- 0483 Apr, [facility] [place] [facility] [address] [id number] [place] [address]- 0796 Apr, [facility] [place] [facility] [address] [id number] [place] [address]- 5051 Apr, [facility] [place] [facility] [address] [id number] [place] [address]- 1288 Apr, [facility] [place] [facility] [address] [id number] [place] [address]- 8150 Apr, [facility] [place] [facility] [address] [id number] [place] [address]- 5942 Apr, [facility] [place] [facility] [address] [id number] [place] [address]- 8250 Mar, [facility] [place] [facility] [address] [id number] [place] [address]- 7198 Mar, [facility] [place] [facility] [address] [id number] [place] [address]- 7471 Mar, [facility] [place] [facility] [address] [id number] [place] [address]- 2301 Mar, [facility] [place] [facility] [address] [id number] [place] [address] 8553 Mar, [facility] [place] [facility] [address] [id number] [place] [address]- 1412 Mar, [facility] [place] [facility] [address] [id number] [place] [address]- 1461 Mar, [facility] [place] [facility] [address] [id number] [place] [address]- 0098 Mar, [facility] [place] [facility] [address] [id number] [place] [address]- 0496 15 Mar, 2014 [facility] [place] [facility] [address] [id number] [place] [address]- 2684 15 Mar, 2014 [facility] [place] [facility] [address] [id number] [place] [address]- 2780 15 Mar, 2014 [facility] [place] [facility] [address] [id number] [place] [address]- 9148 15 Mar, 2014 [facility] [place] [facility] [address] [id number] [place] [address] Mar, [facility] [place] [facility] [address] [id number], [place] [address] Mar, [facility] [place] [facility] [address] [id number] [place] [address]- 3230 Mar, [facility] [place] [facility] [address] [id number] [place] [address]- 6387 Mar, [facility] [place] [facility] [address] [id number] [place] [address]- 6714 Feb, [facility] [place] [facility] [address] [id number] [place] [address]- 9413 Feb, [facility] [place] [facility] [address] [id number] [place] [address]- 7318 Feb, [facility] [place] [facility] [address] [id number] [place] [address]- 5621 Feb, [facility] [place] [facility] [address] [id number] [place] [address]- 2995 Feb, [facility] [place] [facility] [address] [id number] [place] [address]- 3375 Feb, [facility] [place] [facility] [address] [id number] [place] [address]- 3600 Feb, [facility] [place] [facility] [address] [id number] [place] [address]- 9590 Feb, [facility] [place] [facility] [address] [id number], [place] [address]- 7952 Feb, [facility] [place] [facility] [address] [id number], [place] [address]- 8215 Feb, [facility] [place] [facility] [address] [id number] [place] [address] 1948 Feb, [facility] [place] [facility] [address] [id number] [place] [address]- 8736 Feb, [facility] [place] [facility] [address] [id number] [place] [address]- 6315 Feb, [facility] [place] [facility] [address] [id number] [place] [address]- 9263 14 Feb, 2014 [facility] [place] [facility] [address] [id number] [place] [address]- 2319 14 Feb, 2014 [facility] [place] [facility] [address] [id number] [place] [address]- 0007 Feb, [facility] [place] [facility] [address] [id number] [place] [address]- 1335 Feb, [facility] [place] [facility] [address] [id number] [place] [address]- 5503 Feb, [facility] [place] [facility] [address] [id number] [place] [address]- 1139 Feb, [facility] [place] [facility] [address] [id number] [place] [address]- 8623 Feb, [facility] [place] [facility] [address] [id number] [place] [address]- 6259 Feb, [facility] [place] [facility] [address] [id number] [place] [address]- 4395 Jan, [facility] [place] [facility] [address] [id number] [place] [address]- 8452 Jan, [facility] [place] [facility] [address] [id number] [place] [address]- 5456 Jan, [facility] [place] [facility] [address] [id number] [place] [address]- 0152 Jan, [facility] [place] [facility] [address] [id number] [place] [address]- 6755 Jan, [facility] [place] [facility] [address] [id number] [place] [address]- 7067 Jan, [facility] [place] [facility] [address] [id number] [place] [address]- 3544 Jan, [facility] [place] [facility] [address] [id number] [place] [address]- 5938 Jan, [facility] [place] [facility] [address] [id number] [place] [address]- 7894 20 Jan, 2013 [facility] [place] [facility] [address] [id number] [place] [address]- 0134 20 Jan, 2013 [facility] [place] [facility] [address] [id number] [place] [address]- 3312 17 Jan, 2013 [facility] [place] [facility] [address] [id number] [place] [address]- 4381 17 Jan, 2013 [facility] [place] [facility] [address] [id number] [place] [address]- 8729 17 Jan, 2013 [facility] [place] [facility] [address] [id number] [place] [address]- 4912 17 Jan, 2013 [facility] [place] [facility] [address] [id number] [place] [address]- 3912 15 Jan, 2014 [facility] [place] [facility] [address] [id number] [place] [address]- 4933 15 Jan, 2014 [facility] [place] [facility] [address] [id number] [place] [address]- 3443 14 Jan, 2014 [facility] [place] [facility] [address] [id number] [place] [address]- 2996 14 Jan, 2014 [facility] [place] [facility] [address] [id number] [place] [address]- 6466 13 Jan, 2014 [facility] [place] [facility] [address] [id number], [place] [address]- 6481 13 Jan, 2014 [facility] [place] [facility] [address] [id number] [place] [address]- 4221 13 Jan, 2014 [facility] [place] [facility] [address] [id number] [place] [address]- 0836 13 Jan, 2014 [facility] [place] [facility] [address] [id number] [place] [address]- 2966 10 Jan, 2013 [facility] [place] [facility] [address] [id number], [place] [address]- 5651 02 Jan, 2013 [facility] [place] [facility] [address] [id number] [place] [address]- 5450 02 Jan, 2013 [facility] [place] [facility] [address] [id number] [place] [address]- 5246 25 Sep, 2013 [facility] [place] [facility] [address] [id number] [place] [address]- 6558 25 Sep, 2013 [facility] [place] [facility] [address] [id number] [place] [address]- 8286 23 Sep, 2013 [facility] [place] [facility] [address] [id number] [place] [address]- 2094 23 Sep, 2013 [facility] [place] [facility] [address] [id number] [place] [address]- 3305 19 Sep, 2013 [facility] [place] [facility] [address] [id number] [place] [address]- 0211 19 Sep, 2013 [facility] [place] [facility] [address] [id number], [place] [address]- 4395 17 Sep, 2013 [facility] [place] [facility] [address] [id number] [place] [address]- 4066 17 Sep, 2013 [facility] [place] [facility] [address] [id number] [place] [address]- 3401 09 Sep, 2013 [facility] [place] [facility] [address] [id number] [place] [address]- 7237 09 Sep, 2013 [facility] [place] [facility] [address] [id number], [place] [address]- 2547 08 Sep, 2013 [facility] [place] [facility] [address] [id number], [place] [address]- 2544 08 Sep, 2013 [facility] [place] [facility] [address] [id number], [place] [address]- 0640 04 Sep, 2013 [facility] [place] [facility] [address] [id number], [place] [address]- 0585 04 Sep, 2013 [facility] [place] [facility] [address] [id number] [place] [address]- 9332 Dec, 2013 [facility] [place] [facility] [address] [id number] [place] [address]- 5795 Dec, 2013 [facility] [place] [facility] [address] [id number] [place] [address]- 8539 Dec, 2013 [facility] [place] [facility] [address] [id number] [place] [address]- 3461 Dec, 2013 [facility] [place] [facility] [address] [id number] [place] [address]- 2788 Nov, [facility] [place] [facility] [address] [id number] [place] [address]- 6310 Nov, [facility] [place] [facility] [address] [id number] [place] [address]- 7719 Nov, [facility] [place] [facility] [address] [id number] [place] [address]- 5194 Nov, [facility] [place] [facility] [address] [id number] [place] [address]- 4895 Nov, [facility] [place] [facility] [address] [id number] [place] [address]- 9284 Nov, [facility] [place] [facility] [address] [id number] [place] [address]- 4657 Nov, [facility] [place] [facility] [address] [id number] [place] [address]- 1997 Nov, [facility] [place] [facility] [address] [id number] [place] [address]- 6862 Nov, [facility] [place] [facility] [address] [id number] [place] [address]- 7143 Nov, [facility] [place] [facility] [address] [id number] [place] [address]- 6393 Nov, [facility] [place] [facility] [address] [id number] [place] [address]- 5840 Nov, [facility] [place] [facility] [address] [id number] [place] [address]- 9054 Oct, [facility] [place] [facility] [address] [id number] [place] [address]- 7285 Oct, [facility] [place] [facility] [address] [id number] [place] [address]- 8512 Oct, [facility] [place] [facility] [address] [id number] [place] [address]- 7692 Oct, [facility] [place] [facility] [address] [id number] [place] [address]- 2213 Oct, [facility] [place] [facility] [address] [id number] [place] [address]- 3007 Oct, [facility] [place] [facility] [address] [id number] [place] [address]- 7006 Oct, [facility] [place] [facility] [address] [id number] [place] [address]- 3447 Oct, [facility] [place] [facility] [address] [id number] [place] [address]- 1087 Oct, [facility] [place] [facility] [address] [id number] [place] [address]- 5919 Oct, [facility] [place] [facility] [address] [id number] [place] [address]- 6331 Oct, [facility] [place] [facility] [address] [id number] [place] [address]- 4122 Oct, [facility] [place] [facility] [address] [id number] [place] [address]- 6894 Oct, [facility] [place] [facility] [address] [id number] [place] [address]- 3698 Oct, [facility] [place] [facility] [address] [id number] [place] [address]- 0237 Oct, [facility] [place] [facility] [address] [id number] [place] [address]- 7472 13 Oct, 2013 [facility] [place] [facility] [address] [id number] [place] [address]- 9562 2013 [facility] [place] [facility] [address] [id number] [place] [address]- 4303 27 Sep, 2013 [facility] [place] [facility] [address] [id number] [place] [address]- 0943 Sep, [facility] [place] [facility] [address] [id number] [place] [address]- 1516 Sep, [facility] [place] [facility] [address] [id number] [place] [address]- 0739 Sep, [facility] [place] [facility] [address] [id number] [place] [address]- 1585 18 Sep, 2013 [facility] [place] [facility] [address] [id number] [place] [address]- 5228 18 Sep, 2013 [facility] [place] [facility] [address] [id number] [place] [address]- 7778 17 Sep, 2013 [facility] [place] [facility] [address] [id number] [place] [address]- 5542 17 Sep, 2013 [facility] [place] [facility] [address] [id number] [place] [address]- 3754 Sep, [facility] [place] [facility] [address] [id number] [place] [address]- 8508 Sep, [facility] [place] [facility] [address] [id number] [place] [address]- 6354 Sep, [facility] [place] [facility] [address] [id number] [place] [address]- 7867 Sep, [facility] [place] [facility] [address] [id number] [place] [address]- 5661 10 Sep, 2013 [facility] [place] [facility] [address] [id number] [place] [address]- 4669 Sep, [facility] [place] [facility] [address] [id number] [place] [address]- 9942 Sep, [facility] [place] [facility] [address] [id number] [place] [address]- 4831 Sep, [facility] [place] [facility] [address] [id number] [place] [address]- 0968 Sep, [facility] [place] [facility] [address] [id number] [place] [address]- 2395 Sep, [facility] [place] [facility] [address] [id number] [place] [address]- 0675 Sep, [facility] [place] [facility] [address] [id number] [place] [address]- 4521 Sep, [facility] [place] [facility] [address] [id number] [place] [address]- 0225 Sep, [facility] [place] [facility] [address] [id number] [place] [address]- 4964 Sep, [facility] [place] [facility] [address] [id number] [place] [address]- 7252 August, [facility] [place] [facility] [address] [id number] [place] [address]- 6588 August, [facility] [place] [facility] [address] [id number] [place] [address]- 0005 August, [facility] [place] [facility] [address] [id number] [place] [address]- 0797 August, [facility] [place] [facility] [address] [id number] [place] [address]- 6756 August, [facility] [place] [facility] [address] [id number] [place] [address]- 3921 August, [facility] [place] [facility] [address] [id number] [place] [address]- 8197 August, [facility] [place] [facility] [address] [id number] [place] [address]- 2707 August, [facility] [place] [facility] [address] [id number] [place] [address]- 7002 August, [facility] [place] [facility] [address] [id number] [place] [address]- 6007 August, [facility] [place] [facility] [address] [id number] [place] [address]- 9175 August, [facility] [place] [facility] [address] [id number] [place] [address]- 1993 Jul, [facility] [place] [facility] [address] [id number] [place] [address]- 2629 Jul, [facility] [place] [facility] [address] [id number] [place] [address]- 3712 Jul, [facility] [place] [facility] [address] [id number] [place] [address] Jul, [facility] [place] [facility] [address] [id number] [place] [address] Jul, [facility] [place] [facility] [address] [id number] [place] [address] Jul, [facility] [place] [facility] [address] [id number] [place] [address] Jul, [facility] [place] [facility] [address] [id number] [place] [address] Jul, [facility] [place] [facility] [address] [id number] [place] [address] Jul, [facility] [place] [facility] [address] [id number] [place] [address] Jul, [facility] [place] [facility] [address] [id number] [place] [address] 16 Jul, 2013 [facility] [place] [facility] [address] [id number] [place] [address] 14 Jul, 2013 [facility] [place] [facility] [address] [id number] [place] [address] 14 Jul, 2013 [facility] [address] [id number] [place] [address] Jul, [facility] [address] [id number] [place] [address] Jul, [facility] [address] [id number] [place] [address] Jul, [facility] [address] [id number] [place] [address] Jul, [facility] [address] [id number] [place] [address] Jul, [facility] [address] [id number] [place] [address] Jul[facility] [address] [id number] [place] [address] Jul, [facility] [address] [id number] [place] [address] Jul, [facility] [address] [id number] [place] [address] Jul, [facility] [address] [id number] [place] [address] Jul, [facility] [address] [id number] [place] [address] Jun, [facility] [address] [id number] [place] [address] Jun, [facility] [address] [id number] [place] [address] Jun, [facility] [address] [id number] [place] [address] Jun, [facility] [address] [id number] [place] [address] Jun, [facility] [address] [id number] [place] [address] Jun, [facility] [address] [id number] [place] [address] Jun, [facility] [address] [id number] [place] [address]- [address] Jun, [facility] [address] [id number] [place] [address]- [address] Jun, [facility] [address] [id number] [place] [address]- [address] Jun, [facility] [address] [id number] [place] [address]- [address] Jun, [facility] [address] [id number] [place] [address] Jun, [facility] [address] [id number] [place] [address] May, [facility] [address] [id number] [place] [address] May, [facility] [address] [id number] [place] [address]695 Apr, [facility] [address] [id number] [place] [address] 119[address] Apr, [facility] [address] [id number] [place] [address] Apr, [facility] [address] [id number] [place] [address] Apr, [facility] [address] [id number] [place] [address]- [address] Apr, [facility] [address] [id number] [place] [address]- [address] Apr, [facility] [address] [id number] [place] [address] Apr, [facility] [address] [id number] [place] [address]- 18[address] Apr, [facility] [address] [id number] [place] [address]- 96[address] Apr, [facility] [address] [id number] [place] [address]- [address] Apr, [facility] [address] [id number] [place] [address]- 26[address] Apr, [facility] [address] [id number] [place] [address] Mar, [facility] [address] [id number] [place] [address]- [address] 16 Mar, 2013 [facility] [address] [id number] [place] [address]- [address] 16 Mar, 2013 [facility] [address] [id number] [place] [address]- [address] 16 Mar, 2013 [facility] [address] [id number] [place] [address]- [address] Feb, [facility] [address] [id number] [place] [address]- 57[address] Feb, [facility] [address] [id number] [place] [address]- [address] Feb, [facility] [address] [id number] [place] [address]- [address] Feb, [facility] [address] [id number] [place] [address]- [address] Feb, [facility] [address] [id number] [place] [address]- [address] 15 Feb, 2013 [facility] [address] [id number] [place] [address]- [address] 15 Feb, 2013 [facility] [address] [id number] [place] [address]- [address] Feb, [facility] [address] [id number] [place] [address]- 43[address] Feb, [facility] [address] [id number] [place] [address]- 16[address] Feb, [facility] [address] [id number] [place] [address]- [address] Feb, [facility] [address] [id number] [place] [address]- [address]697 Jan, [facility] [address] [id number] [place] [address]- [address] Jan, [facility] [address] [id number] [place] [address]- [address] Jan, [facility] [address] [id number] [place] [address]- 35[address] Jan, [facility] [address] [id number] [place] [address]- [address] Jan, [facility] [address] [id number] [place] [address]- 42[address] Jan, [facility] [address] [id number] [place] [address]- 2183 Jan, [facility] [address] [id number] [place] [address]- 18[address] Jan, [facility] [address] [id number] [place] [address]- 7635 30 Dec, 2012 [facility] [address] [id number] [place] [address]- 0266 Dec, [facility] [address] [id number] [place] [address]- [address]64 18 Dec, 2012 [facility] [address] [id number] [place] [address]- [address]851 17 Dec, 2012 [facility] [address] [id number] [place] [address]- 3741 17 Dec, 2012 [facility] [facility] [address] [id number] [place] [address] 16 Dec, 2012 [facility] [place] [facility] [address] [id number] [place] [address] 13 Dec, 2012 [facility] [place] [facility] [address] [id number] [place] [address] 8427 11 Dec, 2012 [facility] [place] [facility] [address] [id number] [place] [address] 90[address] 05 Dec, 2012 [facility] [place] [facility] [address] [id number] [place] [address] 1452 04 Dec, 2012 [facility] [place] [facility] [address] [id number] [place] [address] 1663 30 Nov, 2012 [facility] [place] [facility] [address] [id number] [place] [address]- 5481 29 Nov, 2012 [facility] [place] [facility] [address] [id number] [place] [address] 2916 Nov, [facility] [place] [facility] [address] [id number] [place] [address] 3927 Nov, [facility] [place] [facility] [address] [id number] [place] [address]- 2916 14 Nov, 2012 [facility] [place] [facility] [address] [id number] [place] [address] 385[address] Nov, [facility] [place] [facility] [address] [id number] [place] [address] 2358 Nov, [facility] [place] [facility] [address] [id number] [place] [address]- 9586 Oct, [facility] [place] [facility] [address] [id number] [place] [address] 0408 Oct, [facility] [place] [facility] [address] [id number] [place] [address] 24 Oct, 2012 [facility] [address] [id number] [place] [address] 0339 17 Oct, 2012 [facility] [address] [id number] [place] [address] 7542 15 Oct, 2012 [facility] [address] [id number] [place] [address]- 0154 Oct, [facility] [address] [id number] [place] [address]- 1226 Sep, [facility] [address] [id number] [place] [address] 7[address] Sep, [facility] [address] [id number] [place] [address]- [address]86 Sep, [facility] [address] [id number] [place] [address]- 1239 14 Sep, 2012 [facility] [address] [id number] [place] [address]- 2452 13 Sep, 2012 [facility] [address] [id number] [place] [address]- 3[address] Sep, [facility] [address] [id number] [place] [address] 8706 07 Sep, 2012 [facility] [place] [facility] [address] [id number] [place] [address]- 0307 Sep, [facility] [address] [id number] [place] [address]- 5576 Sep, [facility] [place] [facility] [address] [id number] [place] [address] 5838 August, [facility] [place] [facility] [address] [id number] [place] [address]- 2850 August, [facility] [place] [facility] [address] [id number] [place] [address] 5201 August, [facility] [address] [id number] [place] [address] 2976 August, [facility] [address] [id number] [place] [address]- 2546 August, [facility] [address] [id number] [place] [address] 3436 August, [facility] [address] [id number] [place] [address]- 2546 August, [facility] [address] [id number] [place] [address]- 2546 August, [facility] [address] [id number] [place] [address] 4296 Jul, [facility] [address] [facility] [id number] [place] [address] Jul, [address] [id number] Jul [facility] [address] [id number] [place] [address]- [address] Jun, [facility] [address] [id number] [place] [address]- 3656 Jun, [facility] [address] [facility] [id number] [place] [address]- 1736 Jun, [facility] [address] [id number] [place] [address]- 2546 Jun, [facility] [address] [id number] [place] [address]- 2546 Jun, [facility] [address] [id number] [place] [address]- 2546 Jun, [facility] [address] [id number] [place] [address]- 2546 May, [facility] [address] [id number] [place] [address]- 3187 May, [facility] [address] [id number] [place] [address] 6177 May, [facility] [place] [facility] [address] [id number] [place] [address]- 2776 May, [facility] [place] [facility] [address] [id number] [place] [address]- 2366 May, [facility] [place] [facility] [address] [id number] [place] [address]- 8425 Apr, [facility] [address] [id number] [place] [address]- 3242 Apr, [facility] [address] [id number] [place] [address]- 8545 Apr, [facility] [address] [id number] [place] [address]- 9532 Apr, [facility] [address] [id number] [place] [address]- 6592 Apr, [facility] [address] [id number] [place] [address]- 0551 Apr, [facility] [address] [id number] [place] [address]- 1610 Mar, [facility] [address] [id number] [place] [address]- 1469 Mar, [facility] [place] [facility] [address] [id number] [place] [address]- 2870 Mar, [facility] [place] [facility] [address] [id number] [place] [address] 3954 Mar, [facility] [place] [facility] [address] [id number] [place] [address]- 9246 Mar, [facility] [place] [facility] [address] [id number] [place] [address]- 6056 18 Mar, 2012 [facility] [place] [facility] [address] [id number] [place] [address]- 3927 18 Mar, 2012 [facility] [place] [facility] [address] [id number] [place] [address]- 8436 10 Mar, 2012 [facility] [place] [facility] [address] [id number] [place] [address]- 9816 10 Mar, 2012 [facility] [address] [id number] [place] [address]- 0266 05 Mar, 2012 [facility] [place] [facility] [address] [id number] [place] [address]- 2846 05 Mar, 2012 [facility] [place] [facility] [address] [id number] [place] [address]- 2445 Feb, [facility] [place] [facility] [address] [id number] [place] [address]- 4641 Feb, [facility] [place] [facility] [address] [id number] [place] [address]- 7294 Feb, [facility] [place] [facility] [address] [id number] [place] [address] 8000 Feb, [facility] [place] [facility] [address] [id number] [place] [address]- 3895 Feb, [facility] [address] [id number] [place] [address]- 8319 Feb, [facility] [place] [facility] [address] [id number] [place] [address]- 3095 Feb, [facility] [place] [facility] [address] [id number] [place] [address]- 7261 Feb, [facility] [place] [facility] [address] [id number] [place] [address]- 0535 Feb, [facility] [place] [facility] [address] [id number] [place] [address]- 7741 Feb, [facility] [place] [facility] [address] [id number] [place] [address]- 3116 Feb, [facility] [place] [facility] [address] [id number] [place] [address]- 4988 Jan, [facility] [place] [facility] [address] [id number] [place] [address]- 0456 Jan, [facility] [place] [facility] [address] [id number] [place] [address] Jan, [facility] [place] [facility] [address] [id number] [place] [address]- 3245 Jan, [facility] [place] [facility] [address] [id number] [place] [address]- 6600 Jan, [facility] [place] [facility] [address] [id number] [place] [address]- 3947 Jan, [facility] [place] [facility] [address] [id number] [place] [address]- 5249 Jan, [facility] [place] [facility] [address] [id number] [place] [address]- 7470 24 Dec, 2011 [facility] [place] [facility] [address] [id number] [place] [address]- 2069 17 Dec, 2011 [facility] [place] [facility] [address] [id number], [place] [address]- 3079 13 Dec, 2011 [facility] [place] [facility] [address] [id number], [place] [address]- 2797 12 Dec, 2011 [facility] [place] [facility] [address] [id number], [place] [address]- 1574 Nov, [facility] [place] [facility] [address] [id number] [place] [address]- 8243 Nov, [facility] [place] [facility] [address] [id number], [place] [address]- 0496 Nov, [facility] [place] [facility] [address] [id number], [place] [address]- 5349 15 Nov, 2011 [facility] [place] [facility] [address] [id number], [place] [address]- 1564 Nov, [facility] [place] [facility] [address] [id number] [place] [address]- 8196 Nov, [facility] [place] [facility] [address] [id number] [place] [address]- 0160 Nov, [facility] [place] [facility] [address] [id number] [place] [address]- 9847 Nov, [facility] [place] [facility] [address] [id number] [place] [address]- 7919 Nov, [facility] [place] [facility] [address] [id number] [place] [address]- 7021 Nov, [facility] [place] [facility] [address] [id number] [place] [address]- 3076 Nov, [facility] [place] [facility] [address] [id number] [place] [address]- 8803 Nov, [facility] [place] [facility] [address] [id number] [place] [address]- 1868 Nov, [facility] [place] [facility] [address] [id number] [place] [address]- 5987 Oct, [facility] [place] [facility] [address] [id number] [place] [address]- 4742 Oct, [facility] [place] [facility] [address] [id number] [place] [address]- 2521 Oct, [facility] [place] [facility] [address] [id number] [place] [address]- 5159 Oct, [facility] [place] [facility] [address] [id number] [place] [address]- 3170 Oct, [facility] [place] [facility] [address] [id number] [place] [address]- 5100 Oct, [facility] [place] [facility] [address] [facility] [id number] [place] [address]- 1285 Oct, [facility] [place] [facility] [address] [id number] [place] [address]- 9406 Oct, [facility] [place] [facility] [address] [id number] [place] [address]- 2987 Oct, [facility] [place] [facility] [address] [id number] [place] [address]- 5226 Sep, [facility] [place] [facility] [address] [id number] [place] [address]- 9376 Sep, [facility] [place] [facility] [address] [id number] [place] [address]- 9327 Sep, [facility] [place] [facility] [address] [id number] [place] [address]- 8213 Sep, [facility] [place] [facility] [address] [id number] [place] [address]- 4908 Sep, [facility] [place] [facility] [address] [id number] [place] [address]- 7186 Sep, [facility] [place] [facility] [address] [id number] [place] [address]- 1101 Sep, [facility] [place] [facility] [address] [id number] [place] [address]- 0211 Sep, [facility] [place] [facility] [address] [id number] [place] [address]- 7831 August, [facility] [place] [facility] [address] [id number] [place] [address]- 1995 August, [facility] [place] [facility] [address] [id number] [place] [address]- 6973 August, [facility] [place] [facility] [address] [id number] [place] [address]- 0673 August, [facility] [place] [facility] [address] [id number] [place] [address]- 5141 August, [facility] [place] [facility] [address] [id number] [place] [address]- 0856 August, [facility] [address] [facility] [id number], [place] [address]- 2034 August, [facility] [address] [id number], [place] [address]- 9406 August, [facility] [address] [id number], [place] [address]- 7863 August, [facility] [id number], [place] [address]- 1482 August, [facility] [address] [id number], [place] [address]- 4188 August, [facility] [id number], [place] [address]- 4820 August, [facility] [address] [id number], [place] [address]- 6066 Oct, IMMUNIZATIONS No Known Immunizations SOCIAL HISTORY Never Assessed REASON FOR VISIT Lab orders PLAN OF CARE VITAL SIGNS MEDICATIONS Unknown [...] Surgical History bladder surgery Hospitalization History [facility] for right groin pain 05/2011 Hospitalization History Via [facility] for wound on buttocks 08/2012 Hospitalization History Via [facility] [place], hypoxia secondary to pneumonia 12/02-12/09 Hospitalization History Pneumonia, elevated CO2 on Bipap was in ICU 08/2013 Hospitalization History Hypoxia, Exacerbation COPD, Chest pain 09/05/15 Hospitalization History suicidal ideations-[place] 12/28 Hospitalization History hypoxia--[facility] 02/13/2016 Hospitalization History shortness of breath at june 2016 Hospitalization History Shortness of breath at august 2016 Hospitalization History SOB, chest pain at 12/2016
--- OUTSIDE RECORDS SUMMARY | 2017-11-24 17:34 | XMS REPORT ---
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 [id number] [place] [address] 86440- 7505 Dec, Diabetes with neurological manifestations, type II or unspecified type, not stated as uncontrolled 250.60 ; Essential hypertension, benign 401.1 ; Concussion 850.9 and Skin texture changes 782.8 [facility] [address], [place] [address] 2546 25 Sep, 2014 [facility] [id number] [place] [address] 20290 2546 24 Dec, 2014 [facility] [id number] [place] [address] 92472 2546 22 Dec, 2014 [facility] [id number] [place] [address] 46413 2546 21 Dec, 2014 [facility] [id number] [place] [address] 36312 2540 17 Dec, 2014 Affective disorder 296.90 [facility] [id number] [place] [address] 90108 2546 14 Dec, 2014 [facility] [id number] [place] [address] 75966 2540 10 Dec, 2014 Affective disorder 296.90 [facility] [id number] [place] [address] 66100 2544 04 Dec, 2014 [facility] [id number] [place] [address] 61319 2549 04 Dec, 2014 [facility] [address], [place] [address] 2541 04 Dec, 2014 [facility] [id number] [place] [address] 14624 2546 03 Dec, 2014 [facility] [address] [address] 2545 Nov, 2014 Affective disorder 296.90 [facility] [id number] [place] [address] 72458 2546 27 Nov, 2014 [facility] [address], [place] [address] 2546 Nov, 2014 Affective disorder 296.90 [facility] [id number] [place] [address] 89725- 0646 Nov, Diarrhea 787.91 [facility] [id number] [place] [address] 01221 2546 Nov, [facility] [id number] [place] [address] 59427 2546 Nov, Diarrhea 787.91 [facility] [id number] [place] [address] 97026 2546 Nov, Diarrhea 787.91 and Hyperlipidemia 272.4 [facility] [id number] [place] [address] 08065 2546 Nov, Diarrhea 787.91 [facility] [id number] [place] [address] 93410 2546 Nov, Affective disorder 296.90 [facility] [id number] [place] [address] 62408 2546 Nov, Affective disorder 296.90 [facility] [id number] [place] [address] 66130 2546 Nov, Affective disorder 296.90 [facility] [id number] [place] [address] 22990- 5352 Nov, [facility] [address] [address] 2540 Nov, [facility] [id number] [place] [address] 12573- 8706 Nov, [facility] [id number] [place] [address] 40121 2548 Nov, Episodic mood disorder 296.90 [facility] [id number] [place] [address] 18499 2546 Nov, [facility] [address], [place] [address] 2546 Nov, [facility] [id number] [place] [address] 329658- 6622 Nov, [facility] [address], [place] [address]- 9677 Nov, [facility] [id number] [place] [address] 48823- 4484 Nov, [facility] [address], [place] [address]- 2840 Nov, Lymphedema 457.1 ; Hyperlipidemia 272.4 ; Essential hypertension, benign 401.1 and Numbness of toes 782.0 [facility] [address], [place] [address]- 5793 Nov, Episodic mood disorder 296.90 [facility] [id number] [place] [address] 05906- 4748 Oct, [facility] [id number] [address]- 3494 Oct, [facility] [address], [place] [address]- 6345 Oct, [facility] [address], [place] [address]- 3002 Oct, [facility] [address], [place] [address]- 0079 Oct, [facility] [address], [place] [address]- 9604 Oct, [facility] [address], [place] [address]- 2721 Oct, [facility] [address], [place] [address]- 5541 Oct, [facility] [address] 8010 Oct, Episodic mood disorder 296.90 [facility] [address], [place] [address]- 5395 Sep, [facility] [address], [place] [address]- 5620 29 Sep, 2014 [facility] [address], [place] [address]- 5308 Sep, [facility] [address], [place] [address]- 0003 Sep, [facility] [id number] [place] [address] 54684- 7138 Sep, [facility] [address], [place] [address]- 8475 Sep, Episodic mood disorder 296.90 [facility] [id number] [place] [address] 28046- 1289 19 Sep, 2014 Unspecified episodic mood disorder 296.90 [facility] [address], [place] [address]- 2364 18 Sep, 2014 [facility] [address], [place] [address]- 5244 18 Sep, 2014 [facility] [address], [place] [address]- 4253 16 Sep, 2014 Episodic mood disorder 296.90 [facility] [address], [place] [address]- 3170 15 Sep, 2014 [facility] [address], [place] [address]- 2555 15 Sep, 2014 [facility] [address], [place] [address]- 7926 12 Sep, 2014 [facility] [address], [place] [address]- 4237 09 Sep, 2014 Hematemesis 578.0 and Vomiting 787.03 [facility] [address], [place] [address]- 8801 09 Sep, 2014 Episodic mood disorder 296.90 [facility] [id number] [place] [address] 67682- 9419 Sep, [facility] [address], [place] [address]- 7784 Sep, [facility] [id number] [place] [address] 302278- 5571 Sep, Diabetes mellitus without mention of complication, type II or unspecified type, not stated as uncontrolled 250.00 and Other chronic pain 338.29 [facility] [id number] [place] [address] 27792- 7587 Sep, Episodic mood disorder 296.90 [facility] [id number] [place] [address] 51449- 5990 Sep, [facility] [id number] [place] [address] 75661- 5360 Sep, Episodic mood disorder 296.90 [facility] [id number] [place] [address] 16218- 7832 Sep, [facility] [id number] [place] [address] 48701- 5493 August, [facility] [id number] [place] [address] 99878- 8418 August, [facility] [address], [place] [address]- 0927 August, Episodic mood disorder 296.90 [facility] [address], [place] [address]- 4516 August, [facility] [address], [place] [address]- 6149 August, Unspecified episodic mood disorder 296.90 [facility] [id number] [address]- 8602 August, Vomiting 787.03 [facility] [address] [place] [address]- 1985 August, [facility] [id number] [place] [address], [place] [address]- 8274 August, [facility] [place] [facility] [address] [id number] [place] [address]- 3853 August, [facility] [place] [facility] [address] [id number] [place] [address]- 8845 August, [facility] [place] [facility] [address] [id number] [place] [address]- 3756 August, [facility] [place] [facility] [address] [id number] [place] [address]- 7993 Jul, [facility] [place] [facility] [address] [id number] [place] [address]- 3033 Jul, [facility] [place] [facility] [address] [id number] [place] [address]- 3326 Jul, [facility] [place] [facility] [address] [id number] [place] [address]- 7446 30 Jun, 2014 [facility] [place] [facility] [address] [id number] [place] [address]- 5603 Jun, [facility] [place] [facility] [address] [id number] [place] [address]- 8534 Jun, [facility] [place] [facility] [address] [id number] [place] [address]- 5775 Jun, [facility] [place] [facility] [address] [id number] [place] [address]- 7340 30 Jun, 2014 [facility] [place] [facility] [address] [id number] [place] [address]- 2642 30 Jun, 2014 [facility] [place] [facility] [address] [id number] [place] [address]- 3182 30 Jun, 2014 [facility] [place] [facility] [address] [id number] [place] [address]- 1335 30 Jun, 2014 [facility] [place] [facility] [address] [id number] [place] [address]- 4939 Jun, [facility] [place] [facility] [address] [id number] [place] [address]- 3133 Jun, [facility] [place] [facility] [address] [id number] [place] [address]- 7139 Jun, [facility] [place] [facility] [address] [id number] [place] [address]- 4250 Jun, [facility] [place] [facility] [address] [id number] [place] [address]- 1701 Jun, [facility] [place] [facility] [address] [id number] [place] [address]- 9343 Jun, [facility] [place] [facility] [address] [id number] [place] [address]- 0443 Jun, [facility] [place] [facility] [address] [id number] [place] [address]- 8340 Jun, [facility] [place] [facility] [address] [id number] [place] [address]- 3234 Jun, [facility] [place] [facility] [address] [id number] [place] [address]- 6534 Jun, [facility] [place] [facility] [address] [id number] [place] [address]- 0253 Jun, [facility] [place] [facility] [address] [id number] [place] [address]- 8284 Jun, [facility] [place] [facility] [address] [id number] [place] [address]- 7989 Jun, [facility] [place] [facility] [address] [id number] [place] [address]- 1828 Jun, [facility] [place] [facility] [address] [id number] [place] [address]- 6988 Jun, [facility] [place] [facility] [address] [id number] [place] [address]- 6907 Jun, [facility] [place] [facility] [address] [id number] [place] [address]- 6440 20 Jun, 2014 [facility] [place] [facility] [address] [id number] [place] [address]- 8423 19 Jun, 2014 [facility] [place] [facility] [address] [id number] [place] [address]- 2565 19 Jun, 2014 [facility] [place] [facility] [address] [id number] [place] [address]- 7250 18 Jun, 2014 [facility] [place] [facility] [address] [id number] [place] [address]- 3027 18 Jun, 2014 [facility] [place] [facility] [address] [id number] [place] [address]- 4232 17 Jun, 2014 [facility] [place] [facility] [address] [id number] [place] [address]- 7906 17 Jun, 2014 [facility] [place] [facility] [address] [id number] [place] [address]- 8094 16 Jun, 2014 [facility] [place] [facility] [address] [id number] [place] [address]- 1648 16 Jun, 2014 [facility] [place] [facility] [address] [id number] [place] [address]- 3222 16 Jun, 2014 [facility] [place] [facility] [address] [id number] [place] [address]- 8489 16 Jun, 2014 [facility] [place] [facility] [address] [id number] [place] [address]- 6203 16 Jun, 2014 [facility] [place] [facility] [address] [id number] [place] [address]- 3481 16 Jun, 2014 [facility] [place] [facility] [address] [id number] [place] [address]- 8398 13 Jun, 2014 [facility] [place] [facility] [address] [id number] [place] [address]- 2849 13 Jun, 2014 [facility] [place] [facility] [address] [id number] [place] [address]- 4752 12 Jun, 2014 [facility] [place] [facility] [address] [id number] [place] [address]- 3406 Jun, 2014 [facility] [place] [facility] [address] [id number] [place] [address]- 3515 Jun, 2014 [facility] [place] [facility] [address] [id number] [place] [address]- 4269 Jun, 2014 [facility] [place] [facility] [address] [id number] [place] [address]- 4773 Jun, 2014 [facility] [place] [facility] [address] [id number] [place] [address]- 8475 Jun, 2014 [facility] [place] [facility] [address] [id number] [place] [address] Jun, 2014 [facility] [place] [facility] [address] [id number] [place] [address] Jun, 2014 [facility] [place] [facility] [address] [id number] [place] [address] Jun, 2014 [facility] [place] [facility] [address] [id number] [place] [address] Jun, 2014 [facility] [place] [facility] [address] [id number] [place] [address] Jun, 2014 [facility] [place] [facility] [address] [id number] [place] [address] Jun, [facility] [place] [facility] [address] [id number] [place] [address] Jun, 2014 [facility] [place] [facility] [address] [id number] [place] [address] Jun, 2014 [facility] [place] [facility] [address] [id number] [place] [address] Jun, 2014 [facility] [place] [facility] [address] [id number] [place] [address] Jun, 2014 [facility] [place] [facility] [address] [id number] [place] [address] Jun, [facility] [place] [facility] [address] [id number] [place] [address] Jun, [facility] [place] [facility] [address] [facility] [id number] [place] [address] May, 2014 [facility] [place] [facility] [address] [facility] [id number] [place] [address] May, 2014 [facility] [place] [facility] [address] [facility] [id number] [place] [address] May, 2014 [facility] [place] [facility] [address] [facility] [id number] [place] [address] May, 2014 [facility] [place] [facility] [address] [facility] [id number] [place] [address] May, 2014 [facility] [place] [facility] [address] [facility] [id number] [place] [address] May, 2014 [facility] [place] [facility] [address] [facility] [id number] [place] [address] May, 2014 [facility] [place] [facility] [address] [facility] [id number] [place] [address] May, 2014 [facility] [place] [facility] [address] [facility] [id number] [place] [address] May, 2014 [facility] [place] [facility] [address] [facility] [id number] [place] [address] May, 2014 [facility] [place] [facility] [address] [facility] [id number] [place] [address] May, 2014 [facility] [place] [facility] [address] [facility] [id number] [place] [address] May, 2014 [facility] [place] [facility] [address] [facility] [id number] [place] [address] May, 2014 [facility] [place] [facility] [address] [facility] [id number] [place] [address] May, 2014 [facility] [place] [facility] [address] [id number] [place] [address] May, 2014 [facility] [place] [facility] [address] [id number] [place] [address] May, 2014 [facility] [place] [facility] [address] [id number] [place] [address] May, 2014 [facility] [place] [facility] [address] [id number] [place] [address] May, 2014 [facility] [place] [facility] [address] [id number] [place] [address] May, 2014 [facility] [place] [facility] [address] [id number] [place] [address] May, 2014 [facility] [place] [facility] [address] [facility] [id number] [place] [address] May, 2014 [facility] [place] [facility] [address] [id number], [place] [address] May, 2014 [facility] [place] [facility] [address] [facility] [id number] [place] [address] May, 2014 [facility] [place] [facility] [address] [facility] [id number] [place] [address] May, 2014 [facility] [place] [facility] [address] [facility] [id number], [place] [address] May, 2014 [facility] [place] [facility] [address] [id number], [place] [address] May, 2014 [facility] [place] [facility] [address] [facility] [id number] [place] [address] May, 2014 [facility] [place] [facility] [address] [facility] [id number] [place] [address] 34[address] Apr, [facility] [place] [facility] [address] [facility] [id number] [place] [address] 5[address] Apr, [facility] [place] [facility] [address] [facility] [id number] [place] [address] 5345 Apr, [facility] [place] [facility] [address] [id number] [place] [address] 9737 Apr, [facility] [place] [facility] [address] [id number] [place] [address]- 4180 Apr, [facility] [place] [facility] [address] [id number] [place] [address] 7153 Apr, [facility] [place] [facility] [address] [id number] [place] [address]- 9170 Apr, [facility] [place] [facility] [address] [id number] [place] [address]- 9753 Apr, [facility] [place] [facility] [address] [id number] [place] [address]- 2123 Apr, [facility] [place] [facility] [address] [id number] [place] [address]- 5983 Apr, [facility] [place] [facility] [address] [id number] [place] [address]- 2068 Apr, [facility] [place] [facility] [address] [id number] [place] [address]- 5819 Apr, [facility] [place] [facility] [address] [id number] [place] [address] 5033 Apr, [facility] [place] [facility] [address] [id number] [place] [address]- 9550 Apr, [facility] [place] [facility] [address] [id number] [place] [address]- 6184 Apr, [facility] [place] [facility] [address] [id number] [place] [address]- 4012 Apr, [facility] [place] [facility] [address] [id number] [place] [address]- 0506 Apr, [facility] [place] [facility] [address] [id number] [place] [address]- 1257 Apr, [facility] [place] [facility] [address] [id number] [place] [address]- 9736 Apr, [facility] [place] [facility] [address] [id number] [place] [address] 1989 Apr, [facility] [place] [facility] [address] [id number] [place] [address]- 9991 Mar, [facility] [place] [facility] [address] [id number] [place] [address]- 4842 Mar, [facility] [place] [facility] [address] [id number] [place] [address]- 2194 Mar, [facility] [place] [facility] [address] [id number] [place] [address]- 1318 Mar, [facility] [place] [facility] [address] [id number] [place] [address]- 6351 Mar, [facility] [place] [facility] [address] [id number] [place] [address]- 0135 Mar, [facility] [place] [facility] [address] [id number] [place] [address]- 4241 Mar, [facility] [place] [facility] [address] [id number] [place] [address]- 4641 Mar, [facility] [place] [facility] [address] [id number] [place] [address]- 8106 15 Mar, 2014 [facility] [place] [facility] [address] [id number] [place] [address]- 2115 15 Mar, 2014 [facility] [place] [facility] [address] [id number] [place] [address]- 6234 15 Mar, 2014 [facility] [place] [facility] [address] [id number] [place] [address]- 9346 15 Mar, 2014 [facility] [place] [facility] [address] [id number] [place] [address] Mar, [facility] [place] [facility] [address] [id number], [place] [address] Mar, [facility] [place] [facility] [address] [id number] [place] [address]- 8974 Mar, [facility] [place] [facility] [address] [id number] [place] [address]- 4640 Mar, [facility] [place] [facility] [address] [id number] [place] [address]- 3405 Feb, [facility] [place] [facility] [address] [id number] [place] [address]- 2480 Feb, [facility] [place] [facility] [address] [id number] [place] [address]- 5627 Feb, [facility] [place] [facility] [address] [id number] [place] [address]- 8146 Feb, [facility] [place] [facility] [address] [id number] [place] [address]- 8327 Feb, [facility] [place] [facility] [address] [id number] [place] [address]- 7387 Feb, [facility] [place] [facility] [address] [id number] [place] [address]- 0372 Feb, [facility] [place] [facility] [address] [id number] [place] [address]- 2174 Feb, [facility] [place] [facility] [address] [id number], [place] [address]46 Feb, [facility] [place] [facility] [address] [id number], [place] [address]- 9700 Feb, [facility] [place] [facility] [address] [id number] [place] [address]- 3792 Feb, [facility] [place] [facility] [address] [id number] [place] [address]- 8338 Feb, [facility] [place] [facility] [address] [id number] [place] [address]- 3752 Feb, [facility] [place] [facility] [address] [id number] [place] [address]- 9092 14 Feb, 2014 [facility] [place] [facility] [address] [id number] [place] [address]- 4583 14 Feb, 2014 [facility] [place] [facility] [address] [id number] [place] [address]- 7812 Feb, [facility] [place] [facility] [address] [id number] [place] [address]- 9557 Feb, [facility] [place] [facility] [address] [id number] [place] [address]- 3985 Feb, [facility] [place] [facility] [address] [id number] [place] [address]- 2033 Feb, [facility] [place] [facility] [address] [id number] [place] [address]- 5301 Feb, [facility] [place] [facility] [address] [id number] [place] [address]- 5136 Feb, [facility] [place] [facility] [address] [id number] [place] [address]- 5931 Jan, [facility] [place] [facility] [address] [id number] [place] [address]- 0708 Jan, [facility] [place] [facility] [address] [id number] [place] [address]- 8769 Jan, [facility] [place] [facility] [address] [id number] [place] [address]- 2806 Jan, [facility] [place] [facility] [address] [id number] [place] [address]- 2436 Jan, [facility] [place] [facility] [address] [id number] [place] [address]- 0618 Jan, [facility] [place] [facility] [address] [id number] [place] [address]- 9202 Jan, [facility] [place] [facility] [address] [id number] [place] [address]- 2858 Jan, [facility] [place] [facility] [address] [id number] [place] [address]- 3934 20 Jan, 2013 [facility] [place] [facility] [address] [id number] [place] [address]- 7197 20 Jan, 2013 [facility] [place] [facility] [address] [id number] [place] [address]- 0572 17 Jan, 2013 [facility] [place] [facility] [address] [id number] [place] [address]- 7369 17 Jan, 2013 [facility] [place] [facility] [address] [id number] [place] [address]- 0688 17 Jan, 2013 [facility] [place] [facility] [address] [id number] [place] [address]- 0141 17 Jan, 2013 [facility] [place] [facility] [address] [id number] [place] [address]- 8019 15 Jan, 2014 [facility] [place] [facility] [address] [id number] [place] [address]- 9445 15 Jan, 2014 [facility] [place] [facility] [address] [id number] [place] [address]- 2341 14 Jan, 2014 [facility] [place] [facility] [address] [id number] [place] [address]- 1288 14 Jan, 2014 [facility] [place] [facility] [address] [id number] [place] [address]- 5179 13 Jan, 2014 [facility] [place] [facility] [address] [id number], [place] [address]- 5124 13 Jan, 2014 [facility] [place] [facility] [address] [id number] [place] [address]- 1030 13 Jan, 2014 [facility] [place] [facility] [address] [id number] [place] [address]- 0578 13 Jan, 2014 [facility] [place] [facility] [address] [id number] [place] [address]- 0085 10 Jan, 2013 [facility] [place] [facility] [address] [id number], [place] [address]- 3709 02 Jan, 2013 [facility] [place] [facility] [address] [id number] [place] [address]- 1512 02 Jan, 2013 [facility] [place] [facility] [address] [id number] [place] [address]- 4902 25 Sep, 2013 [facility] [place] [facility] [address] [id number] [place] [address]- 9306 25 Sep, 2013 [facility] [place] [facility] [address] [id number] [place] [address]- 3118 23 Sep, 2013 [facility] [place] [facility] [address] [id number] [place] [address]- 7617 23 Sep, 2013 [facility] [place] [facility] [address] [id number] [place] [address]- 8224 19 Sep, 2013 [facility] [place] [facility] [address] [id number] [place] [address]- 8942 19 Sep, 2013 [facility] [place] [facility] [address] [id number], [place] [address]- 5242 17 Sep, 2013 [facility] [place] [facility] [address] [id number] [place] [address]- 5224 17 Sep, 2013 [facility] [place] [facility] [address] [id number] [place] [address]- 2030 09 Sep, 2013 [facility] [place] [facility] [address] [id number] [place] [address]- 4234 09 Sep, 2013 [facility] [place] [facility] [address] [id number], [place] [address]- 2540 08 Sep, 2013 [facility] [place] [facility] [address] [id number], [place] [address]- 254 08 Sep, 2013 [facility] [place] [facility] [address] [id number], [place] [address]- 1895 04 Sep, 2013 [facility] [place] [facility] [address] [id number], [place] [address]- 1495 04 Sep, 2013 [facility] [place] [facility] [address] [id number] [place] [address]- 7275 Dec, 2013 [facility] [place] [facility] [address] [id number] [place] [address]- 5615 Dec, 2013 [facility] [place] [facility] [address] [id number] [place] [address]- 5557 Dec, 2013 [facility] [place] [facility] [address] [id number] [place] [address]- 2536 Dec, 2013 [facility] [place] [facility] [address] [id number] [place] [address]- 9026 Nov, [facility] [place] [facility] [address] [id number] [place] [address]- 2750 Nov, [facility] [place] [facility] [address] [id number] [place] [address]- 0215 Nov, [facility] [place] [facility] [address] [id number] [place] [address]- 2545 Nov, [facility] [place] [facility] [address] [id number] [place] [address]- 5691 Nov, [facility] [place] [facility] [address] [id number] [place] [address]- 8045 Nov, [facility] [place] [facility] [address] [id number] [place] [address]- 2239 Nov, [facility] [place] [facility] [address] [id number] [place] [address]- 4680 Nov, [facility] [place] [facility] [address] [id number] [place] [address]- 2835 Nov, [facility] [place] [facility] [address] [id number] [place] [address]- 3456 Nov, [facility] [place] [facility] [address] [id number] [place] [address]- 5021 Nov, [facility] [place] [facility] [address] [id number] [place] [address]- 7229 Nov, [facility] [place] [facility] [address] [id number] [place] [address]- 9880 Oct, [facility] [place] [facility] [address] [id number] [place] [address]- 3794 Oct, [facility] [place] [facility] [address] [id number] [place] [address]- 8591 Oct, [facility] [place] [facility] [address] [id number] [place] [address]- 6489 Oct, [facility] [place] [facility] [address] [id number] [place] [address]- 2703 Oct, [facility] [place] [facility] [address] [id number] [place] [address]- 1826 Oct, [facility] [place] [facility] [address] [id number] [place] [address]- 4244 Oct, [facility] [place] [facility] [address] [id number] [place] [address]- 9716 Oct, [facility] [place] [facility] [address] [id number] [place] [address]- 6598 Oct, [facility] [place] [facility] [address] [id number] [place] [address]- 8298 Oct, [facility] [place] [facility] [address] [id number] [place] [address]- 9942 Oct, [facility] [place] [facility] [address] [id number] [place] [address]- 1932 Oct, [facility] [place] [facility] [address] [id number] [place] [address]- 8684 Oct, [facility] [place] [facility] [address] [id number] [place] [address]- 6922 Oct, [facility] [place] [facility] [address] [id number] [place] [address]- 9730 Oct, [facility] [place] [facility] [address] [id number] [place] [address]- 5907 13 Oct, 2013 [facility] [place] [facility] [address] [id number] [place] [address]- 3832 2013 [facility] [place] [facility] [address] [id number] [place] [address]- 8197 27 Sep, 2013 [facility] [place] [facility] [address] [id number] [place] [address]- 1957 Sep, [facility] [place] [facility] [address] [id number] [place] [address]- 3806 Sep, [facility] [place] [facility] [address] [id number] [place] [address]- 9089 Sep, [facility] [place] [facility] [address] [id number] [place] [address]- 4307 18 Sep, 2013 [facility] [place] [facility] [address] [id number] [place] [address]- 8291 18 Sep, 2013 [facility] [place] [facility] [address] [id number] [place] [address]- 8424 17 Sep, 2013 [facility] [place] [facility] [address] [id number] [place] [address]- 7207 17 Sep, 2013 [facility] [place] [facility] [address] [id number] [place] [address]- 3348 Sep, [facility] [place] [facility] [address] [id number] [place] [address]- 1527 Sep, [facility] [place] [facility] [address] [id number] [place] [address]- 3347 Sep, [facility] [place] [facility] [address] [id number] [place] [address]- 7606 Sep, [facility] [place] [facility] [address] [id number] [place] [address]- 7958 10 Sep, 2013 [facility] [place] [facility] [address] [id number] [place] [address]- 0467 Sep, [facility] [place] [facility] [address] [id number] [place] [address]- 7045 Sep, [facility] [place] [facility] [address] [id number] [place] [address]- 8959 Sep, [facility] [place] [facility] [address] [id number] [place] [address]- 1162 Sep, [facility] [place] [facility] [address] [id number] [place] [address]- 0177 Sep, [facility] [place] [facility] [address] [id number] [place] [address]- 4232 Sep, [facility] [place] [facility] [address] [id number] [place] [address]- 8448 Sep, [facility] [place] [facility] [address] [id number] [place] [address]- 8729 Sep, [facility] [place] [facility] [address] [id number] [place] [address]- 9161 Sep, [facility] [place] [facility] [address] [id number] [place] [address]- 9882 August, [facility] [place] [facility] [address] [id number] [place] [address]- 1043 August, [facility] [place] [facility] [address] [id number] [place] [address]- 1148 August, [facility] [place] [facility] [address] [id number] [place] [address]- 0240 August, [facility] [place] [facility] [address] [id number] [place] [address]- 2874 August, [facility] [place] [facility] [address] [id number] [place] [address]- 7845 August, [facility] [place] [facility] [address] [id number] [place] [address]- 8247 August, [facility] [place] [facility] [address] [id number] [place] [address]- 7098 August, [facility] [place] [facility] [address] [id number] [place] [address]- 4288 August, [facility] [place] [facility] [address] [id number] [place] [address]- 3768 August, [facility] [place] [facility] [address] [id number] [place] [address]- 5511 August, [facility] [place] [facility] [address] [id number] [place] [address]- 6192 Jul, [facility] [place] [facility] [address] [id number] [place] [address]- 5819 Jul, [facility] [place] [facility] [address] [id number] [place] [address]- 1597 Jul, [facility] [place] [facility] [address] [id number] [place] [address]- 7705 Jul, [facility] [place] [facility] [address] [id number] [place] [address]- 9227 Jul, [facility] [place] [facility] [address] [id number] [place] [address]- 6306 Jul, [facility] [place] [facility] [address] [id number] [place] [address]- 4790 Jul, [facility] [place] [facility] [address] [id number] [place] [address]- 7347 Jul, [facility] [place] [facility] [address] [id number] [place] [address]- 3721 Jul, [facility] [place] [facility] [address] [id number] [place] [address]- 2246 Jul, [facility] [place] [facility] [address] [id number] [place] [address]- 1206 16 Jul, 2013 [facility] [place] [facility] [address] [id number] [place] [address]- 9806 14 Jul, 2013 [facility] [place] [facility] [address] [id number] [place] [address]- 8071 14 Jul, 2013 [facility] [address] [id number] [place] [address]- 7544 Jul, [facility] [place] [facility] [address] [id number] [place] [address]- 7919 Jul, [facility] [address] [id number] [place] [address]- 9632 Jul, [facility] [place] [facility] [address] [id number] [place] [address] Jul, [facility] [place] [facility] [address] [id number] [place] [address] Jul, [facility] [place] [facility] [address] [id number] [place] [address] Jul, [facility] [place] [facility] [address] [id number] [place] [address] Jul, [facility] [address] [id number] [place] [address] Jul, [facility] [place] [facility] [address] [id number] [place] [address] Jul, [facility] [place] [facility] [address] [id number] [place] [address] Jul, [facility] [place] [facility] [address] [id number] [place] [address] Jun, [facility] [place] [facility] [address] [id number] [place] [address] Jun, [facility] [place] [facility] [address] [id number] [place] [address] Jun, [facility] [place] [facility] [address] [id number] [place] [address] 46[address] Jun, [facility] [place] [facility] [address] [id number] [place] [address] Jun, [facility] [place] [facility] [address] [id number] [place] [address] Jun, [facility] [place] [facility] [address] [id number] [place] [address] Jun, [facility] [place] [facility] [address] [id number] [place] [address] Jun, [facility] [place] [facility] [address] [id number] [place] [address] Jun, [facility] [place] [facility] [address] [id number] [place] [address] Jun, [facility] [place] [facility] [address] [id number] [place] [address] Jun, [facility] [place] [facility] [address] [id number] [place] [address] Jun, [facility] [place] [facility] [address] [id number] [place] [address] May, [facility] [place] [facility] [address] [id number] [place] [address] May, [facility] [place] [facility] [address] [id number] [place] [address] Apr, [facility] [place] [facility] [address] [id number] [place] [address] Apr, [facility] [place] [facility] [address] [id number] [place] [address] Apr, [facility] [place] [facility] [address] [id number] [place] [address] Apr, [facility] [place] [facility] [address] [id number] [place] [address] Apr, [facility] [place] [facility] [address] [id number] [place] [address] Apr, [facility] [place] [facility] [address] [id number] [place] [address]659 Apr, [facility] [address] [id number] [place] [address] Apr, [facility] [place] [facility] [address] [id number] [place] [address] Apr, [facility] [address] [id number] [place] [address] Apr, [facility] [place] [facility] [address] [id number] [place] [address] 29[address] Apr, [facility] [address] [id number] [place] [address] Mar, [facility] [place] [facility] [address] [id number] [place] [address] 16 Mar, 2013 [facility] [address] [id number] [place] [address] 16 Mar, 2013 [facility] [place] [facility] [address] [id number] [place] [address] 16 Mar, 2013 [facility] [place] [facility] [address] [id number] [place] [address] Feb, [facility] [address] [id number] [place] [address] Feb, [facility] [place] [facility] [address] [id number] [place] [address] Feb, [facility] [place] [facility] [address] [id number] [place] [address] Feb, [facility] [place] [facility] [address] [id number] [place] [address] 27[address] Feb, [facility] [place] [facility] [address] [id number] [place] [address]- [address] 15 Feb, 2013 [facility] [place] [facility] [address] [id number] [place] [address] 15 Feb, 2013 [facility] [place] [facility] [address] [id number] [place] [address] Feb, [facility] [place] [facility] [address] [id number] [place] [address]- 87[address] Feb, [facility] [place] [facility] [address] [id number] [place] [address]- 59[address] Feb, [facility] [place] [facility] [address] [id number] [place] [address]- 6[address] Feb, [facility] [place] [facility] [address] [id number] [place] [address] 99[address] Jan, [facility] [place] [facility] [address] [id number] [place] [address] 96[address] Jan, [facility] [place] [facility] [address] [id number] [place] [address]- [address] Jan, [facility] [place] [facility] [address] [id number] [place] [address] Jan, [facility] [place] [facility] [address] [id number] [place] [address] Jan, [facility] [place] [facility] [address] [id number] [place] [address] Jan, [facility] [place] [facility] [address] [id number] [place] [address]- 0096 Jan, [facility] [place] [facility] [address] [id number] [place] [address]- [address] Jan, [facility] [place] [facility] [address] [id number] [place] [address] 30 Dec, 2012 [facility] [place] [facility] [address] [id number] [place] [address]- 96[address] Dec, [facility] [place] [facility] [address] [id number] [place] [address]- [address] 18 Dec, 2012 [facility] [place] [facility] [address] [id number] [place] [address]- [address] 17 Dec, 2012 [facility] [place] [facility] [address] [id number] [place] [address]- [address] 17 Dec, 2012 [facility] [place] [facility] [address] [id number] [place] [address]- 1612 16 Dec, 2012 [facility] [place] [facility] [address] [id number] [place] [address]- 2436 13 Dec, 2012 [facility] [place] [facility] [address] [id number] [place] [address]- [address]26 11 Dec, 2012 [facility] [place] [facility] [address] [id number] [place] [address]- 6[address] 05 Dec, 2012 [facility] [place] [facility] [address] [id number] [place] [address]- 4367 04 Dec, 2012 [facility] [place] [facility] [address] [id number] [place] [address]- [address] 30 Nov, 2012 [facility] [place] [facility] [address] [id number] [place] [address]- 7808 29 Nov, 2012 [facility] [place] [facility] [address] [id number] [place] [address]- [address] Nov, [facility] [place] [facility] [address] [id number] [place] [address]- [address] Nov, [facility] [place] [facility] [address] [id number] [place] [address]- [address]341 14 Nov, 2012 [facility] [place] [facility] [address] [id number] [place] [address]- 5665 Nov, [facility] [place] [facility] [address] [id number] [place] [address]- 7831 Nov, [facility] [place] [facility] [address] [id number] [place] [address] Oct, [facility] [place] [facility] [address] [id number] [place] [address] Oct, [facility] [place] [facility] [address] [id number] [place] [address] 24 Oct, 2012 [facility] [address] [id number] [place] [address] 17 Oct, 2012 [facility] [address] [id number] [place] [address] 15 Oct, 2012 [facility] [address] [id number] [place] [address] 6616 Oct, [facility] [address] [id number] [place] [address] 16[address] Sep, [facility] [address] [id number] [place] [address] 7168 Sep, [facility] [address] [id number] [place] [address] 70[address] Sep, [facility] [address] [id number] [place] [address] 44[address] 14 Sep, 2012 [facility] [address] [id number] [place] [address] 8822 13 Sep, 2012 [facility] [address] [id number] [place] [address] 39[address] Sep, [facility] [address] [id number] [place] [address] 07 Sep, 2012 [facility] [place] [facility] [address] [id number] [place] [address] Sep, [facility] [address] [id number] [place] [address] 3860 Sep, [facility] [place] [facility] [address] [id number] [place] [address] 6965 August, [facility] [place] [facility] [address] [id number] [place] [address] 4054 August, [facility] [place] [facility] [address] [id number] [place] [address]77 August, [facility] [address] [id number] [place] [address] 9346 August, [facility] [address] [id number] [place] [address]- 2546 August, [facility] [address] [id number] [place] [address] 7766 August, [facility] [address] [id number] [place] [address] 2546 August, [facility] [address] [id number] [place] [address] 2546 August, [facility] [address] [id number] [place] [address] 0896 Jul, [facility] [address] [facility] [id number] [place] [address] Jul, [address] [id number] Jul [facility] [address] [id number] [place] [address] 1856 Jun, [facility] [address] [id number] [place] [address] 5356 Jun, [facility] [address] [facility] [id number] [place] [address] Jun, [facility] [address] [id number] [place] [address] 2546 Jun, [facility] [address] [id number] [place] [address] 2546 Jun, [facility] [address] [id number] [place] [address]- 2546 Jun, [facility] [address] [id number] [place] [address] 2546 May, [facility] [address] [id number] [place] [address] 8897 May, [facility] [address] [id number] [place] [address] 7672 May, [facility] [place] [facility] [address] [id number] [place] [address] 9056 May, [facility] [place] [facility] [address] [id number] [place] [address] 2529 May, [facility] [place] [facility] [address] [id number] [place] [address] 5815 Apr, [facility] [address] [id number] [place] [address] 9[address] Apr, [facility] [address] [id number] [place] [address] 4304 Apr, [facility] [address] [id number] [place] [address] 3327 Apr, [facility] [address] [id number] [place] [address] 7753 Apr, [facility] [address] [id number] [place] [address] 3467 Apr, [facility] [address] [id number] [place] [address] 9607 Mar, [facility] [address] [id number] [place] [address] 2057 Mar, [facility] [place] [facility] [address] [id number] [place] [address] 3682 Mar, [facility] [place] [facility] [address] [id number] [place] [address] 8648 Mar, [facility] [place] [facility] [address] [id number] [place] [address] Mar, [facility] [place] [facility] [address] [id number] [place] [address]- 9028 18 Mar, 2012 [facility] [place] [facility] [address] [id number] [place] [address]- 7248 18 Mar, 2012 [facility] [place] [facility] [address] [id number] [place] [address]- 4246 10 Mar, 2012 [facility] [place] [facility] [address] [id number] [place] [address]- 0486 10 Mar, 2012 [facility] [address] [id number] [place] [address]- 6586 05 Mar, 2012 [facility] [place] [facility] [address] [id number] [place] [address]- 0144 05 Mar, 2012 [facility] [place] [facility] [address] [id number] [place] [address] 8147 Feb, [facility] [place] [facility] [address] [id number] [place] [address] 0330 Feb, [facility] [place] [facility] [address] [id number] [place] [address] 8644 Feb, [facility] [place] [facility] [address] [id number] [place] [address]- 2268 Feb, [facility] [place] [facility] [address] [id number] [place] [address]- 0373 Feb, [facility] [address] [id number] [place] [address] 5475 Feb, [facility] [place] [facility] [address] [id number] [place] [address]- 6840 Feb, [facility] [place] [facility] [address] [id number] [place] [address]- 8245 Feb, [facility] [place] [facility] [address] [id number] [place] [address]- 4838 Feb, [facility] [place] [facility] [address] [id number] [place] [address]- 9852 Feb, [facility] [place] [facility] [address] [id number] [place] [address]- 6476 Feb, [facility] [place] [facility] [address] [id number] [place] [address]- 4121 Jan, [facility] [place] [facility] [address] [id number] [place] [address]- 6296 Jan, [facility] [place] [facility] [address] [id number] [place] Jan, [facility] [place] [facility] [address] [id number] [place] [address]- 7660 Jan, [facility] [place] [facility] [address] [id number] [place] [address]- 7601 Jan, [facility] [place] [facility] [address] [id number] [place] [address]- 4813 Jan, [facility] [place] [facility] [address] [id number] [place] [address]- 7593 Jan, [facility] [place] [facility] [address] [id number] [place] [address]- 4353 24 Dec, 2011 [facility] [place] [facility] [address] [id number] [place] [address]- 0495 17 Dec, 2011 [facility] [place] [facility] [address] [id number], [place] [address]- 4113 13 Dec, 2011 [facility] [place] [facility] [address] [id number], [place] [address]- 3593 12 Dec, 2011 [facility] [place] [facility] [address] [id number], [place] [address]- 2422 Nov, [facility] [place] [facility] [address] [id number] [place] [address]- 7563 Nov, [facility] [place] [facility] [address] [id number], [place] [address]- 0816 Nov, [facility] [place] [facility] [address] [id number], [place] [address]- 1671 15 Nov, 2011 [facility] [place] [facility] [address] [id number], [place] [address]- 7578 Nov, [facility] [place] [facility] [address] [id number] [place] [address]- 8600 Nov, [facility] [place] [facility] [address] [id number] [place] [address]- 5327 Nov, [facility] [place] [facility] [address] [id number] [place] [address]- 6369 Nov, [facility] [place] [facility] [address] [id number] [place] [address]- 9841 Nov, [facility] [place] [facility] [address] [id number] [place] [address]- 4695 Nov, [facility] [place] [facility] [address] [id number] [place] [address]- 3744 Nov, [facility] [place] [facility] [address] [id number] [place] [address]- 1196 Nov, [facility] [place] [facility] [address] [id number] [place] [address]- 2806 Nov, [facility] [place] [facility] [address] [id number] [place] [address]- 8478 Oct, [facility] [place] [facility] [address] [id number] [place] [address]- 1158 Oct, [facility] [place] [facility] [address] [id number] [place] [address]- 0623 Oct, [facility] [place] [facility] [address] [id number] [place] [address]- 5018 Oct, [facility] [place] [facility] [address] [id number] [place] [address]- 7585 Oct, [facility] [place] [facility] [address] [id number] [place] [address]- 6425 Oct, [facility] [place] [facility] [address] [facility] [id number] [place] [address]- 6006 Oct, [facility] [place] [facility] [address] [id number] [place] [address]- 3408 Oct, [facility] [place] [facility] [address] [id number] [place] [address]- 8361 Oct, [facility] [place] [facility] [address] [id number] [place] [address]- 0036 Sep, [facility] [place] [facility] [address] [id number] [place] [address]- 0326 Sep, [facility] [place] [facility] [address] [id number] [place] [address]- 6617 Sep, [facility] [place] [facility] [address] [id number] [place] [address]- 9404 Sep, [facility] [place] [facility] [address] [id number] [place] [address]- 3083 Sep, [facility] [place] [facility] [address] [id number] [place] [address]- 7898 Sep, [facility] [place] [facility] [address] [id number] [place] [address]- 7080 Sep, [facility] [place] [facility] [address] [id number] [place] [address]- 2314 Sep, [facility] [place] [facility] [address] [id number] [place] [address]- 2211 August, [facility] [place] [facility] [address] [id number] [place] [address]- 0670 August, [facility] [place] [facility] [address] [id number] [place] [address]- 5983 August, [facility] [place] [facility] [address] [id number] [place] [address]- 3389 August, [facility] [place] [facility] [address] [id number] [place] [address]- 2859 August, [facility] [place] [facility] [address] [id number] [place] [address]- 6521 August, [facility] [address] [facility] [id number], [place] [address]- 7319 August, [facility] [address] [id number], [place] [address] 3166 August, [facility] [address] [id number], [place] [address] August, [facility] [id number], [place] [address] 4416 August, [facility] [address] [id number], [place] [address]- 1313 August, [facility] [id number], [place] [address]- 4744 August, [facility] [address] [id number], [place] [address]- 9279 Oct, IMMUNIZATIONS No Known Immunizations SOCIAL HISTORY Never Assessed REASON FOR VISIT Medication Request PLAN OF CARE VITAL SIGNS MEDICATIONS Unknown [...] Surgical History bladder surgery Hospitalization History Via [facility] for right groin pain 05/2011 Hospitalization History Via [facility] for wound on buttocks 08/2012 Hospitalization History Via [facility], hypoxia secondary to pneumonia 12/02-12/09 Hospitalization History Pneumonia, elevated CO2 on Bipap was in ICU 08/2013 Hospitalization History Hypoxia, Exacerbation COPD, Chest pain 09/05/15 Hospitalization History suicidal ideations-[place] 12/28 Hospitalization History hypoxia--[facility] 02/13/2016 Hospitalization History shortness of breath at june 2016 Hospitalization History Shortness of breath at august 2016 Hospitalization History SOB, chest pain at 12/2016
--- OUTSIDE RECORDS SUMMARY | 2017-11-24 17:36 | XMS REPORT ---
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 as uncontrolled 250.60 ; Essential hypertension, benign 401.1 ; Concussion 850.9 and Skin texture changes 782.8 [facility] [id number] [place] [address] 68888- 2853 25 Dec, 2014 [facility] [id number] [place] [address] 28608- 7118 24 Dec, 2014 [facility] [id number] [place] [address] 87612- 1980 22 Dec, 2014 [facility] [id number] [place] [address] 70154- 9291 21 Dec, 2014 [facility] [id number] [place] [address] 57874- 7782 17 Dec, 2014 Affective disorder 296.90 [facility] [id number] [place] [address] 94743- 2716 14 Dec, 2014 [facility] [id number] [place] [address] 90378- 2543 10 Dec, 2014 Affective disorder 296.90 [facility] [id number] [place] [address] 86923- 8597 04 Dec, 2014 [facility] [id number] [place] [address] 35102- 1450 Dec, [facility] [id number] [place] [address] 30341 2541 Dec, [facility] [id number] [place] [address] 29183- 2547 Dec, [facility] [id number] [place] [address] 46294- 3955 Nov, Affective disorder 296.90 [facility] [id number] [place] [address] 69307- 2914 Nov, [facility] [id number] [place] [address] 70190- 2547 Nov, Affective disorder 296.90 [facility] [address] [address] 2546 Nov, Diarrhea 787.91 [facility] [id number] [place] [address] 75610 2546 Nov, [facility] [id number] [place] [address] 85749 2546 Nov, Diarrhea 787.91 [facility] [id number] [place] [address] 90404- 2546 Nov, Diarrhea 787.91 and Hyperlipidemia 272.4 [facility] [id number] [place] [address] 79999 2546 Nov, Diarrhea 787.91 [facility] [id number] [place] [address] 59618 2546 Nov, Affective disorder 296.90 [facility] [id number] [place] [address] 64948 2546 Nov, Affective disorder 296.90 [facility] [id number] [place] [address] 30950- 5086 Nov, Affective disorder 296.90 [facility] [address] [place] [address] 30359 2549 Nov, [facility] [id number] [place] [address] 65853 2546 Nov, [facility] [address] [address] 2546 Nov, [facility] [id number] [place] [address] 32077 254 Nov, Episodic mood disorder 296.90 [facility] [address] [address] 2546 Nov, [facility] [id number] [place] [address] 21918- 9517 Nov, [facility] [address] [facility] [id number] [address]- 3030 Nov, [facility] [address] [address]- 7481 Nov, [facility] [address] [address]- 3955 Nov, [facility] [address] [address]- 0816 Nov, Lymphedema 457.1 ; Hyperlipidemia 272.4 ; Essential hypertension, benign 401.1 and Numbness of toes 782.0 [facility] [address] [address]- 2889 Nov, Episodic mood disorder 296.90 [facility] [address] [address]- 0325 Oct, [facility] [address] [address]- 5294 Oct, [facility] [address] [address]- 5026 Oct, [facility] [address] [address]- 0478 Oct, [facility] [address] [address]- 5098 Oct, [facility] [address] [address]- 2564 Oct, [facility] [id number] [address]- 7602 Oct, [facility] [id number] 8533 Oct, [facility] [id number] 0972 Oct, Episodic mood disorder 296.90 [facility] [address] [address]- 7344 30 Sep, 2014 [facility] [address] [address]- 6221 29 Sep, 2014 [facility] [address] [address]- 0257 26 Sep, 2014 [facility] [address] [address]- 3457 Sep, [facility] [address] [address]- 1924 Sep, [facility] [id number] [place] [address] 00207- 8736 Sep, Episodic mood disorder 296.90 [facility] [address] [address]- 3060 19 Sep, 2014 Unspecified episodic mood disorder 296.90 [facility] [address] [address]- 9345 18 Sep, 2014 [facility] [address] [address]- 2373 18 Sep, 2014 [facility] [address] [address]- 8054 16 Sep, 2014 Episodic mood disorder 296.90 [facility] [address] [address]- 8798 15 Sep, 2014 [facility] [address] [address]- 9247 15 Sep, 2014 [facility] [address] [address]- 6730 12 Sep, 2014 [facility] [address] [address]- 8400 09 Sep, 2014 Hematemesis 578.0 and Vomiting 787.03 [facility] [address] [address]- 0021 Sep, Episodic mood disorder 296.90 [facility] [address] [address]- 9909 Sep, [facility] [address] 0048 Sep, [facility] [address] [address]- 9477 Sep, Diabetes mellitus without mention of complication, type II or unspecified type, not stated as uncontrolled 250.00 and Other chronic pain 338.29 [facility] [address] [address]- 3353 Sep, Episodic mood disorder 296.90 [facility] [address] [address]- 7494 Sep, [facility] [address] [address]- 4400 Sep, Episodic mood disorder 296.90 [facility] [address] [address]- 5910 Sep, [facility] [address] [address]- 2551 August, [facility] [address] [address]- 8609 August, [facility] [address] [address]- 6765 August, Episodic mood disorder 296.90 [facility] [address] [address]- 8690 August, [facility] [address] [address]- 4575 August, Unspecified episodic mood disorder 296.90 [facility] [address] [address]- 0199 August, Vomiting 787.03 [facility] [id number] [place] [address]- 3026 August, [facility] [place] [facility] [address] [id number] [place] [address]- 3755 August, [facility] [place] [facility] [address] [id number] [place] [address]- 8938 August, [facility] [place] [facility] [address] [id number] [place] [address]- 0482 August, [facility] [place] [facility] [address] [id number] [place] [address]- 5351 August, [facility] [place] [facility] [address] [id number] [place] [address]- 0719 Jul, [facility] [place] [facility] [address] [id number] [place] [address]- 0141 Jul, [facility] [place] [facility] [address] [id number] [place] [address]- 1877 Jul, [facility] [place] [facility] [address] [id number] [place] [address]- 9143 Jun, [facility] [place] [facility] [address] [id number] [place] [address]- 5001 Jun, [facility] [place] [facility] [address] [id number] [place] [address]- 5294 Jun, [facility] [place] [facility] [address] [id number] [place] [address]- 0544 Jun, [facility] [place] [facility] [address] [id number] [place] [address]- 0925 Jun, [facility] [place] [facility] [address] [id number] [place] [address]- 5214 Jun, [facility] [place] [facility] [address] [id number] [place] [address]- 6797 Jun, [facility] [place] [facility] [address] [id number] [place] [address]- 8499 Jun, [facility] [place] [facility] [address] [id number] [place] [address]- 2309 Jun, [facility] [place] [facility] [address] [id number] [place] [address]- 2236 Jun, [facility] [place] [facility] [address] [id number] [place] [address]- 3082 Jun, [facility] [place] [facility] [address] [id number] [place] [address]- 0883 Jun, [facility] [place] [facility] [address] [id number] [place] [address]- 9976 Jun, [facility] [place] [facility] [address] [id number] [place] [address]- 2740 Jun, [facility] [place] [facility] [address] [id number] [place] [address]- 5262 Jun, [facility] [place] [facility] [address] [id number] [place] [address]- 0721 Jun, [facility] [place] [facility] [address] [id number] [place] [address]- 9570 Jun, [facility] [place] [facility] [address] [id number] [place] [address]- 1710 Jun, [facility] [place] [facility] [address] [id number] [place] [address]- 5908 Jun, [facility] [place] [facility] [address] [id number] [place] [address]- 0704 Jun, [facility] [place] [facility] [address] [id number] [place] [address]- 3892 Jun, [facility] [place] [facility] [address] [id number] [place] [address]- 8193 Jun, [facility] [place] [facility] [address] [id number] [place] [address]- 6781 Jun, [facility] [place] [facility] [address] [id number] [place] [address]- 3099 20 Jun, 2014 [facility] [place] [facility] [address] [id number] [place] [address]- 3701 20 Jun, 2014 [facility] [place] [facility] [address] [id number] [place] [address]- 7161 19 Jun, 2014 [facility] [place] [facility] [address] [id number] [place] [address]- 1088 19 Jun, 2014 [facility] [place] [facility] [address] [id number] [place] [address]- 3862 18 Jun, 2014 [facility] [place] [facility] [address] [id number] [place] [address]- 3366 18 Jun, 2014 [facility] [place] [facility] [address] [id number] [place] [address]- 2871 17 Jun, 2014 [facility] [place] [facility] [address] [id number] [place] [address]- 6333 17 Jun, 2014 [facility] [place] [facility] [address] [id number] [place] [address]- 2143 16 Jun, 2014 [facility] [place] [facility] [address] [id number] [place] [address]- 1577 16 Jun, 2014 [facility] [place] [facility] [address] [id number] [place] [address] 16 Jun, 2014 [facility] [place] [facility] [address] [id number] [place] [address] 16 Jun, 2014 [facility] [place] [facility] [address] [id number] [place] [address] 16 Jun, 2014 [facility] [place] [facility] [address] [id number] [place] [address] 16 Jun, 2014 [facility] [place] [facility] [address] [id number] [place] [address] 13 Jun, 2014 [facility] [place] [facility] [address] [id number] [place] [address] 13 Jun, 2014 [facility] [place] [facility] [address] [id number] [place] [address] Jun, 2014 [facility] [place] [facility] [address] [id number] [place] [address]34 Jun, 2014 [facility] [place] [facility] [address] [id number] [place] [address] Jun, 2014 [facility] [place] [facility] [address] [id number] [place] [address]- [address]28 Jun, 2014 [facility] [place] [facility] [address] [id number] [place] [address] Jun, 2014 [facility] [place] [facility] [address] [id number] [place] [address] Jun, 2014 [facility] [place] [facility] [address] [id number] [place] [address] Jun, 2014 [facility] [place] [facility] [address] [id number] [place] [address]- 1506 Jun, 2014 [facility] [place] [facility] [address] [id number] [place] [address]298 Jun, 2014 [facility] [place] [facility] [address] [id number] [place] [address] 1672 Jun, 2014 [facility] [place] [facility] [address] [id number] [place] [address] Jun, 2014 [facility] [place] [facility] [address] [id number] [place] [address]- [address]89 Jun, 2014 [facility] [place] [facility] [address] [id number] [place] [address] Jun, 2014 [facility] [place] [facility] [address] [id number] [place] [address] Jun, 2014 [facility] [place] [facility] [address] [id number] [place] [address]- 6425 Jun, 2014 [facility] [place] [facility] [address] [id number] [place] [address]- [address] Jun, [facility] [place] [facility] [address] [id number] [place] [address]- [address]38 Jun, [facility] [place] [facility] [address] [id number] [place] [address]- [address] Jun, [facility] [place] [facility] [address] [id number] [place] [address]- [address] May, 2014 [facility] [place] [facility] [address] [facility] [id number] [place] [address]- [address] May, 2014 [facility] [place] [facility] [address] [id number] [place] [address]- [address] May, 2014 [facility] [place] [facility] [address] [facility] [id number] [place] [address]- 8189 May, 2014 [facility] [place] [facility] [address] [facility] [id number] [place] [address]- [address] May, 2014 [facility] [place] [facility] [address] [facility] [id number] [place] [address]- 7934 May, 2014 [facility] [place] [facility] [address] [facility] [id number] [place] [address]- 2941 May, 2014 [facility] [place] [facility] [address] [facility] [id number] [place] [address] May, 2014 [facility] [place] [facility] [address] [facility] [id number] [place] [address]- 4698 May, 2014 [facility] [place] [facility] [address] [facility] [id number] [place] [address]- 74[address] May, 2014 [facility] [place] [facility] [address] [facility] [id number] [place] [address]- [address] May, 2014 [facility] [place] [facility] [address] [facility] [id number] [place] [address]- [address] May, 2014 [facility] [place] [facility] [address] [facility] [id number] [place] [address]757 May, 2014 [facility] [place] [facility] [address] [id number] [place] [address]- 7609 May, 2014 [facility] [place] [facility] [address] [id number] [place] [address]- 8735 May, 2014 [facility] [place] [facility] [address] [id number] [place] [address]- 8266 May, 2014 [facility] [place] [facility] [address] [id number] [place] [address]- [address]77 May, 2014 [facility] [place] [facility] [address] [id number] [place] [address] May, 2014 [facility] [place] [facility] [address] [id number] [place] [address]- [address] May, 2014 [facility] [place] [facility] [address] [facility] [id number] [place] [address] May, 2014 [facility] [place] [facility] [address] [facility] [id number] [place] [address] May, 2014 [facility] [place] [facility] [address] [id number] [place] [address] 6717 May, 2014 [facility] [place] [facility] [address] [facility] [id number] [place] [address] 9[address] May, 2014 [facility] [place] [facility] [address] [facility] [id number] [place] [address]594 May, 2014 [facility] [place] [facility] [address] [id number] [place] [address] 2543 May, 2014 [facility] [place] [facility] [address] [id number] [place] [address] 98[address] May, 2014 [facility] [place] [facility] [address] [facility] [id number] [place] [address] 6[address] May, 2014 [facility] [place] [facility] [address] [facility] [id number] [place] [address] 3862 Apr, [facility] [place] [facility] [address] [id number] [place] [address] 230[address] Apr, [facility] [address] [id number] [place] [address] 8266 Apr, [facility] [place] [facility] [address] [id number] [place] [address] 4832 Apr, [facility] [address] [id number] [place] [address] 7731 Apr, [facility] [address] [id number] [place] [address] 6064 Apr, [facility] [address] [id number] [place] [address] Apr, [facility] [address] [id number] [place] [address] 74[address] Apr, [facility] [address] [id number] [place] [address] 8[address] Apr, [facility] [address] [id number] [place] [address] 9445 Apr, [facility] [place] [facility] [address] [id number] [place] [address] Apr, [facility] [address] [id number] [place] [address] 6705 Apr, [facility] [place] [facility] [address] [id number] [place] [address] 6598 Apr, [facility] [address] [id number] [place] [address] 3117 Apr, [facility] [place] [facility] [address] [id number] [place] [address] 6485 Apr, [facility] [place] [facility] [address] [id number] [place] [address] 0848 Apr, [facility] [place] [facility] [address] [id number] [place] [address] Apr, [facility] [place] [facility] [address] [id number] [place] [address]- 2058 Apr, [facility] [place] [facility] [address] [id number] [place] [address]- 2527 Apr, [facility] [place] [facility] [address] [id number] [place] [address] 7317 Apr, [facility] [place] [facility] [address] [id number] [place] [address] 7409 Mar, [facility] [place] [facility] [address] [id number] [place] [address]- 8326 Mar, [facility] [place] [facility] [address] [id number] [place] [address] 4994 Mar, [facility] [place] [facility] [address] [id number] [place] [address] 5948 Mar, [facility] [place] [facility] [address] [id number] [place] [address]- 6154 Mar, [facility] [place] [facility] [address] [id number] [place] [address] 1396 Mar, [facility] [place] [facility] [address] [id number] [place] [address] 8168 Mar, [facility] [place] [facility] [address] [id number] [place] [address]- 2842 Mar, [facility] [place] [facility] [address] [id number] [place] [address] 5754 15 Mar, 2014 [facility] [place] [facility] [address] [id number] [place] [address] 1611 15 Mar, 2014 [facility] [place] [facility] [address] [id number] [place] [address] 2387 15 Mar, 2014 [facility] [place] [facility] [address] [id number] [place] [address] 4965 15 Mar, 2014 [facility] [place] [facility] [address] [id number] [address] 7788 Mar, [facility] [place] [facility] [address] [id number] [place] [address] 0635 Mar, [facility] [place] [facility] [address] [id number] [place] [address] 8713 Mar, [facility] [place] [facility] [address] [facility] [id number] [place] [address] 9251 Mar, [facility] [place] [facility] [address] [id number] [place] [address] 7305 Feb, [facility] [place] [facility] [address] [id number] [place] [address] 7832 Feb, [facility] [place] [facility] [address] [id number] [place] [address]- 8117 Feb, [facility] [place] [facility] [address] [facility] [id number] [place] [address] 1588 Feb, [facility] [place] [facility] [address] [id number] [place] [address]- 1674 Feb, [facility] [place] [facility] [address] [facility] [id number] [place] [address]- 0599 Feb, [facility] [place] [facility] [address] [facility] [id number] [place] [address] 1973 Feb, [facility] [place] [facility] [address] [id number] [place] [address]- 7785 Feb, [facility] [place] [facility] [address] [id number] [address]- 7029 Feb, [facility] [place] [facility] [address] [id number] [place] [address]- 4714 Feb, [facility] [place] [facility] [address] [facility] [id number] [place] [address]- 2846 Feb, [facility] [place] [facility] [address] [facility] [id number] [address]- 4814 Feb, [facility] [place] [facility] [address] [id number] [place] [address]- 6987 17 Feb, 2014 [facility] [place] [facility] [address] [id number] [place] [address]- 9474 Feb, [facility] [place] [facility] [address] [id number] [place] [address]- 9372 Feb, [facility] [place] [facility] [address] [id number] [place] [address]- 3927 Feb, [facility] [place] [facility] [address] [id number] [place] [address]- 9599 Feb, [facility] [place] [facility] [address] [id number] [place] [address]- 6239 Feb, [facility] [place] [facility] [address] [id number] [place] [address]- 6978 Feb, [facility] [place] [facility] [address] [id number] [place] [address]- 0835 Feb, [facility] [place] [facility] [address] [id number] [place] [address]- 8884 Feb, [facility] [place] [facility] [address] [id number] [place] [address]- 3456 Jan, [facility] [place] [facility] [address] [id number] [place] [address]- 1753 Jan, [facility] [place] [facility] [address] [id number] [place] [address]- 1846 Jan, [facility] [place] [facility] [address] [id number] [place] [address]- 8199 Jan, [facility] [place] [facility] [address] [id number] [place] [address]- 1033 Jan, [facility] [place] [facility] [address] [id number] [place] [address]- 8260 Jan, [facility] [place] [facility] [address] [id number] [place] [address]- 8929 21 Jan, 2014 [facility] [place] [facility] [address] [id number] [place] [address]- 6845 21 Jan, 2014 [facility] [place] [facility] [address] [id number] [place] [address]- 7266 20 Jan, 2014 [facility] [place] [facility] [address] [id number] [place] [address]- 9468 20 Jan, 2014 [facility] [place] [facility] [address] [id number] [place] [address]- 4961 17 Jan, 2014 [facility] [place] [facility] [address] [id number] [place] [address]- 3159 17 Jan, 2014 [facility] [place] [facility] [address] [id number] [place] [address]- 3819 17 Jan, 2013 [facility] [place] [facility] [address] [id number] [place] [address]- 5692 17 Jan, 2013 [facility] [place] [facility] [address] [id number] [place] [address]- 6234 15 Jan, 2014 [facility] [place] [facility] [address] [id number] [place] [address]- 8609 15 Jan, 2014 [facility] [place] [facility] [address] [id number] [place] [address]- 9938 14 Jan, 2014 [facility] [place] [facility] [address] [id number] [address]- 0153 14 Jan, 2014 [facility] [place] [facility] [address] [id number] [address]- 0501 13 Jan, 2013 [facility] [place] [facility] [address] [id number] [place] [address]- 9774 13 Jan, 2014 [facility] [place] [facility] [address] [id number] [place] [address]- 8704 13 Jan, 2013 [facility] [place] [facility] [address] [id number] [address]- 9285 13 Jan, 2013 [facility] [place] [facility] [address] [id number] [place] [address]- 0305 10 Jan, 2013 [facility] [place] [facility] [address] [id number] [place] [address]- 1105 02 Jan, 2013 [facility] [place] [facility] [address] [id number] [place] [address]- 1536 02 Jan, 2014 [facility] [place] [facility] [address] [id number] [place] [address]- 0563 25 Dec, 2013 [facility] [place] [facility] [address] [id number] [place] [address] 2548 25 Dec, 2013 [facility] [place] [facility] [address] [id number] [place] [address]- 2774 23 Dec, 2013 [facility] [place] [facility] [address] [id number] [place] [address]- 2590 23 Dec, 2013 [facility] [place] [facility] [address] [id number] [place] [address]- 1977 19 Dec, 2013 [facility] [place] [facility] [address] [id number] [place] [address]- 2542 19 Dec, 2013 [facility] [place] [facility] [address] [id number] [place] [address] 2541 17 Dec, 2013 [facility] [place] [facility] [address] [id number] [place] [address]- 2548 17 Sep, 2013 [facility] [place] [facility] [address] [id number] [place] [address] 2541 09 Sep, 2013 [facility] [place] [facility] [address] [id number] [place] [address]- 254 09 Sep, 2013 [facility] [place] [facility] [address] [id number] [place] [address] 2543 08 Sep, 2013 [facility] [place] [facility] [address] [id number] [place] [address]- 2543 08 Sep, 2013 [facility] [place] [facility] [address] [id number] [place] [address]- 2549 04 Sep, 2013 [facility] [place] [facility] [address] [id number] [place] [address]- 8275 Dec, 2013 [facility] [place] [facility] [address] [id number] [place] [address]- 8437 Dec, [facility] [place] [facility] [address] [id number] [place] [address]- 0605 Dec, [facility] [place] [facility] [address] [id number] [place] [address]- 9486 Dec, [facility] [place] [facility] [address] [id number] [place] [address]- 2555 Dec, [facility] [place] [facility] [address] [id number] [place] [address]- 1966 Nov, [facility] [place] [facility] [address] [id number] [place] [address]- 0916 Nov, [facility] [place] [facility] [address] [id number] [place] [address]- 8744 Nov, [facility] [place] [facility] [address] [id number] [place] [address]- 7131 Nov, [facility] [place] [facility] [address] [id number] [place] [address]- 5737 Nov, [facility] [place] [facility] [address] [id number] [place] [address]- 0497 Nov, [facility] [place] [facility] [address] [id number] [place] [address]- 3101 Nov, [facility] [place] [facility] [address] [id number] [place] [address]- 4574 Nov, [facility] [place] [facility] [address] [id number] [place] [address]- 8409 Nov, [facility] [place] [facility] [address] [id number] [place] [address]- 2728 Nov, [facility] [place] [facility] [address] [id number] [place] [address]- 5751 Nov, [facility] [place] [facility] [address] [id number] [place] [address]- 8630 Nov, [facility] [place] [facility] [address] [id number] [place] [address]- 0536 Oct, [facility] [place] [facility] [address] [id number] [place] [address]- 6825 Oct, [facility] [place] [facility] [address] [id number] [place] [address]- 6295 Oct, [facility] [place] [facility] [address] [id number] [place] [address]- 3680 Oct, [facility] [place] [facility] [address] [id number] [place] [address]- 4230 Oct, [facility] [place] [facility] [address] [id number] [place] [address]- 3508 Oct, [facility] [place] [facility] [address] [id number] [place] [address]- 6158 Oct, [facility] [place] [facility] [address] [id number] [place] [address]- 4134 Oct, [facility] [place] [facility] [address] [id number] [place] [address]- 3074 Oct, [facility] [place] [facility] [address] [id number] [place] [address]- 5911 Oct, [facility] [place] [facility] [address] [id number] [place] [address]- 2895 Oct, [facility] [place] [facility] [address] [id number] [place] [address]- 9726 Oct, [facility] [place] [facility] [address] [id number] [place] [address]- 4317 Oct, [facility] [place] [facility] [address] [id number] [place] [address]- 2991 Oct, [facility] [place] [facility] [address] [id number] [place] [address]- 7292 13 Oct, 2013 [facility] [place] [facility] [address] [id number] [place] [address]- 2376 13 Oct, 2013 [facility] [place] [facility] [address] [id number] [place] [address]- 0122 2013 [facility] [place] [facility] [address] [id number] [place] [address]- 8690 27 Sep, 2013 [facility] [place] [facility] [address] [id number] [place] [address]- 6129 27 Sep, 2013 [facility] [place] [facility] [address] [id number] [place] [address]- 1713 Sep, [facility] [place] [facility] [address] [id number] [place] [address]- 3692 20 Sep, 2013 [facility] [place] [facility] [address] [id number] [place] [address]- 9782 18 Sep, 2013 [facility] [place] [facility] [address] [id number] [place] [address]- 8920 18 Sep, 2013 [facility] [place] [facility] [address] [id number] [place] [address]- 8287 17 Sep, 2013 [facility] [place] [facility] [address] [id number] [place] [address]- 5870 17 Sep, 2013 [facility] [place] [facility] [address] [id number] [place] [address]- 2526 11 Sep, 2013 [facility] [place] [facility] [address] [id number] [place] [address]- 0140 11 Sep, 2013 [facility] [place] [facility] [address] [id number] [place] [address]- 6969 11 Sep, 2013 [facility] [place] [facility] [address] [id number] [place] [address]- 8547 11 Sep, 2013 [facility] [place] [facility] [address] [id number] [place] [address]- 0970 Sep, [facility] [place] [facility] [address] [id number] [place] [address]- 6006 Sep, [facility] [place] [facility] [address] [id number] [place] [address]- 1180 Sep, [facility] [place] [facility] [address] [id number] [place] [address]- 4271 Sep, [facility] [place] [facility] [address] [id number] [place] [address]- 4148 Sep, [facility] [place] [facility] [address] [id number] [place] [address]- 0910 Sep, [facility] [place] [facility] [address] [id number] [place] [address]- 6003 Sep, [facility] [place] [facility] [address] [id number] [place] [address]- 3297 Sep, [facility] [place] [facility] [address] [id number] [place] [address]- 3268 Sep, [facility] [place] [facility] [address] [id number] [place] [address]- 1661 Sep, [facility] [place] [facility] [address] [id number] [place] [address]- 1233 August, [facility] [place] [facility] [address] [id number] [place] [address]- 9206 August, [facility] [place] [facility] [address] [id number] [address]- 4118 August, [facility] [place] [facility] [address] [id number] [place] [address]- 0428 August, [facility] [place] [facility] [address] [id number] [place] [address]- 6284 August, [facility] [place] [facility] [address] [id number] [place] [address]- 3182 August, [facility] [place] [facility] [address] [id number] [address]- 0867 August, [facility] [address] [id number] [place] [address]- 4984 August, [facility] [place] [facility] [address] [id number] [place] [address]- 0381 August, [facility] [place] [facility] [address] [id number] [place] [address]- 1252 August, [facility] [place] [facility] [address] [id number] [place] [address]- 6726 August, [facility] [place] [facility] [address] [id number] [place] [address]- 3940 Jul, [facility] [place] [facility] [address] [id number] [place] [address]- 7000 Jul, [facility] [address] [id number] [place] [address]- 9131 Jul, [facility] [place] [facility] [address] [id number] [place] [address]- 4634 Jul, [facility] [place] [facility] [address] [id number] [place] [address]- 8080 Jul, [facility] [place] [facility] [address] [id number] [place] [address]- 7869 Jul, [facility] [place] [facility] [address] [id number] [place] [address]- 4696 Jul, [facility] [place] [facility] [address] [id number] [place] [address]- 1345 Jul, [facility] [place] [facility] [address] [id number] [place] [address]- 7543 Jul, [facility] [place] [facility] [address] [id number] [place] [address]- 4704 Jul, [facility] [place] [facility] [address] [id number] [place] [address]- 2833 Jul, [facility] [place] [facility] [address] [id number] [place] [address]- 0171 14 Jul, 2013 [facility] [place] [facility] [address] [id number] [place] [address]- 8029 Jul, [facility] [place] [facility] [address] [id number] [place] [address]- 4396 Jul, [facility] [place] [facility] [address] [id number] [place] [address]- 9101 Jul, [facility] [place] [facility] [address] [id number] [place] [address]- 8047 Jul, [facility] [place] [facility] [address] [id number] [place] [address]- 7310 Jul, [facility] [place] [facility] [address] [id number] [place] [address]- 1827 Jul, [facility] [place] [facility] [address] [id number] [place] [address]- 4580 Jul, [facility] [place] [facility] [address] [id number] [place] [address]- 5171 Jul, [facility] [place] [facility] [address] [id number] [place] [address] Jul, [facility] [place] [facility] [address] [id number] [place] [address] Jul, [facility] [place] [facility] [address] [id number] [place] [address] Jul, [facility] [place] [facility] [address] [id number] [place] [address] Jun, [facility] [place] [facility] [address] [id number] [place] [address] Jun, [facility] [place] [facility] [address] [id number] [place] [address] Jun, [facility] [place] [facility] [address] [id number] [place] [address] Jun, [facility] [place] [facility] [address] [id number] [place] [address] Jun, [facility] [place] [facility] [address] [id number] [place] [address] Jun, [facility] [place] [facility] [address] [id number] [place] [address]60 Jun, [facility] [place] [facility] [address] [id number] [place] [address] Jun, [facility] [place] [facility] [address] [id number] [place] [address] Jun, [facility] [place] [facility] [address] [id number] [place] [address] Jun, [facility] [place] [facility] [address] [id number] [place] [address] Jun, [facility] [place] [facility] [address] [id number] [place] [address] Jun, [facility] [place] [facility] [address] [id number] [place] [address] May, [facility] [place] [facility] [address] [id number] [place] [address] May, [facility] [place] [facility] [address] [id number] [place] [address] Apr, [facility] [place] [facility] [address] [id number] [place] [address] Apr, [facility] [place] [facility] [address] [id number] [place] [address] Apr, [facility] [place] [facility] [address] [id number] [place] [address] Apr, [facility] [place] [facility] [address] [id number] [place] [address] Apr, [facility] [place] [facility] [address] [id number] [place] [address] Apr, [facility] [address] [id number] [place] [address] Apr, [facility] [address] [id number] [place] [address] Apr, [facility] [address] [id number] [place] [address] Apr, [facility] [address] [id number] [place] [address] Apr, [facility] [address] [id number] [place] [address] Apr, [facility] [address] [id number] [place] [address] 16 Mar, 2013 [facility] [address] [id number] [place] [address] Mar, [facility] [address] [id number] [place] [address]41 16 Mar, 2013 [facility] [address] [id number] [place] [address]- [address] Mar, [facility] [address] [id number] [place] [address] Feb, [facility] [address] [id number] [place] [address] Feb, [facility] [address] [id number] [place] [address] Feb, [facility] [place] [facility] [address] [id number] [place] [address] Feb, [facility] [place] [facility] [address] [id number] [place] [address] 22 Feb, 2013 [facility] [address] [id number] [place] [address] 15 Feb, 2013 [facility] [place] [facility] [address] [id number] [place] [address] 15 Feb, 2013 [facility] [place] [facility] [address] [id number] [place] [address] Feb, [facility] [place] [facility] [address] [id number] [place] [address] 7085 Feb, [facility] [place] [facility] [address] [id number] [place] [address]- [address] Feb, [facility] [place] [facility] [address] [id number] [place] [address] Feb, [facility] [place] [facility] [address] [id number] [place] [address] Jan, [facility] [place] [facility] [address] [id number] [place] [address] 10[address] Jan, [facility] [place] [facility] [address] [id number] [address] Jan, [facility] [place] [facility] [address] [id number] [place] [address] 75[address] Jan, [facility] [place] [facility] [address] [id number] [place] [address] Jan, [facility] [place] [facility] [address] [id number] [place] [address] Jan, [facility] [place] [facility] [address] [id number] [place] [address]- [address] Jan, [facility] [place] [facility] [address] [id number] [place] [address]- [address] Jan, [facility] [place] [facility] [address] [id number] [place] [address] Dec, [facility] [place] [facility] [address] [id number] [place] [address]- [address] Dec, [facility] [place] [facility] [address] [id number] [place] [address] 18 Dec, 2012 [facility] [place] [facility] [address] [id number] [place] [address]46 17 Dec, 2012 [facility] [place] [facility] [address] [id number] [place] [address]- 8156 17 Dec, 2012 [facility] [place] [facility] [address] [id number] [place] [address]- 7727 16 Dec, 2012 [facility] [place] [facility] [address] [id number] [place] [address]- [address] 13 Dec, 2012 [facility] [place] [facility] [address] [id number] [place] [address]- 4414 11 Dec, 2012 [facility] [place] [facility] [address] [id number] [place] [address]- 1564 05 Dec, 2012 [facility] [place] [facility] [address] [id number] [place] [address]- 7820 04 Dec, 2012 [facility] [place] [facility] [address] [id number] [place] [address]- 2511 30 Nov, 2012 [facility] [place] [facility] [address] [id number] [place] [address]- 4725 29 Nov, 2012 [facility] [place] [facility] [address] [id number] [place] [address]- 9081 Nov, [facility] [place] [facility] [address] [id number] [place] [address]- [address]161 Nov, [facility] [place] [facility] [address] [id number] [place] [address]- 7937 14 Nov, 2012 [facility] [place] [facility] [address] [id number] [place] [address]- 8961 Nov, [facility] [place] [facility] [address] [id number] [place] [address]- 3913 05 Nov, 2012 [facility] [place] [facility] [address] [id number] [place] [address]- 95[address] Oct, [facility] [place] [facility] [address] [id number] [place] [address]- 3046 24 Oct, 2012 [facility] [address] [id number] [place] [address]- [address]178 24 Oct, 2012 [facility] [place] [facility] [address] [id number] [place] [address]- [address]306 17 Oct, 2012 [facility] [place] [facility] [address] [id number] [place] [address]- [address] 15 Oct, 2012 [facility] [place] [facility] [address] [id number] [place] [address] Oct, [facility] [place] [facility] [address] [id number] [place] [address] Sep, [facility] [place] [facility] [address] [id number] [place] [address] Sep, [facility] [place] [facility] [address] [id number] [place] [address] Sep, [facility] [place] [facility] [address] [id number] [place] [address] 14 Sep, 2012 [facility] [place] [facility] [address] [id number] [place] [address] Sep, [facility] [place] [facility] [address] [id number] [place] [address] Sep, [facility] [place] [facility] [address] [id number] [place] [address] Sep, [facility] [place] [facility] [address] [id number] [place] [address] Sep, [facility] [place] [facility] [address] [id number] [place] [address] Sep, [facility] [place] [facility] [address] [id number] [place] [address] August, [facility] [place] [facility] [address] [id number] [place] [address] August, [facility] [address] [id number] [place] [address] August, [facility] [address] [id number] [place] [address] August, [facility] [address] [id number] [place] [address] August, [facility] [address] [id number] [place] [address] 8[address] August, [facility] [address] [id number] [place] [address] 75[address] August, [facility] [address] [id number] [place] [address] August, [facility] [address] [id number] [place] [address] Jul, [facility] [address] [id number] [place] [address] Jul, [facility] [address] [place] [id number] Jul [facility] [address] [id number] [place] [address] Jun, [facility] [address] [id number] [place] [address] Jun, [facility] [address] [id number] [place] [address] Jun, [facility] [address] [id number] [place] [address] Jun, [facility] [address] [id number] [place] [address] 9631 Jun, [facility] [address] [id number] [place] [address] 8746 Jun, [facility] [address] [id number] [place] [address] 1495 May, [facility] [address] [id number] [place] [address] May, [facility] [address] [id number] [place] [address] 9766 May, [facility] [address] [id number] [place] [address] May, [facility] [address] [id number] [place] [address] May, [facility] [address] [id number] [place] [address] Apr, [facility] [address] [id number] [place] [address] 2857 Apr, [facility] [address] [id number] [place] [address] 38[address] Apr, [facility] [address] [id number] [place] [address]23 Apr, [facility] [address] [facility] [id number] [place] [address] Apr, [facility] [address] [facility] [id number] [place] [address] Apr, [facility] [address] [id number] [address] Mar, [facility] [address] [id number] [place] [address] Mar, [facility] [address] [id number] [place] [address] Mar, [facility] [address] [id number] [place] [address]- 77[address] Mar, [facility] [address] [facility] [id number] [place] [address]- 2081 Mar, [facility] [place] [facility] [address] [id number] [place] [address] 18 Mar, 2012 [facility] [place] [facility] [address] [id number] [place] [address]9 18 Mar, 2012 [facility] [place] [facility] [address] [id number] [place] [address] Mar, [facility] [place] [facility] [address] [id number] [place] [address]846 Mar, [facility] [place] [facility] [address] [id number] [place] [address]- [address]457 Mar, [facility] [place] [facility] [address] [id number] [place] [address]- 5164 Mar, [facility] [place] [facility] [address] [id number] [place] [address] Feb, [facility] [place] [facility] [address] [id number] [place] [address] 8289 Feb, [facility] [place] [facility] [address] [id number] [place] [address] 6828 Feb, [facility] [place] [facility] [address] [id number] [place] [address]842 Feb, [facility] [place] [facility] [address] [id number] [place] [address]- 9978 Feb, [facility] [place] [facility] [address] [id number] [place] [address]- 6052 Feb, [facility] [place] [facility] [address] [id number] [place] [address] 8565 16 Feb, 2012 [facility] [place] [facility] [address] [id number] [place] [address]306 Feb, [facility] [place] [facility] [address] [id number] [place] [address] Feb, [facility] [place] [facility] [address] [id number] [place] [address] 8912 Feb, [facility] [place] [facility] [address] [id number] [place] [address]378 Feb, [facility] [place] [facility] [address] [id number] [place] [address] 4150 Jan, [facility] [place] [facility] [address] [id number] [place] [address]- 5169 Jan, [facility] [place] [facility] [address] [id number] [place] [address]- 8029 Jan, [facility] [place] [facility] [address] [id number] [place] [address]- 8[address] Jan, [facility] [place] [facility] [address] [id number] [place] [address]- 9146 Jan, [facility] [place] [facility] [address] [id number] [place] [address]- 0681 Jan, [facility] [place] [facility] [address] [id number] [place] [address]- 5263 Jan, [facility] [place] [facility] [address] [id number] [place] [address]- 9492 24 Dec, 2011 [facility] [place] [facility] [address] [id number] [place] [address]- 9484 17 Dec, 2011 [facility] [place] [facility] [address] [id number] [address]398 13 Dec, 2011 [facility] [place] [facility] [address] [id number] [place] [address] 12 Dec, 2011 [facility] [place] [facility] [address] [id number] [place] [address]- 7058 Nov, [facility] [place] [facility] [address] [id number] [place] [address]- 1171 Nov, [facility] [place] [facility] [address] [id number] [place] [address]- 8964 Nov, [facility] [place] [facility] [address] [id number] [place] [address]- 7230 15 Nov, 2011 [facility] [place] [facility] [address] [id number] [place] [address]- 4197 Nov, [facility] [place] [facility] [address] [id number] [place] [address]- 4266 Nov, [facility] [place] [facility] [address] [id number] [place] [address]- 3494 Nov, [facility] [place] [facility] [address] [id number] [place] [address]- 3527 Nov, [facility] [place] [facility] [address] [id number] [place] [address]- 9925 Nov, [facility] [place] [facility] [address] [id number] [place] [address]- 2543 Nov, [facility] [place] [facility] [address] [id number] [place] [address]- 1990 Nov, [facility] [place] [facility] [address] [id number] [place] [address]- 9136 Nov, [facility] [place] [facility] [address] [id number] [place] [address]- 5522 Nov, [facility] [place] [facility] [address] [id number] [place] [address]- 8016 Oct, [facility] [place] [facility] [address] [id number] [place] [address]- 8849 Oct, [facility] [place] [facility] [address] [id number] [place] [address]- 8207 Oct, [facility] [place] [facility] [address] [id number] [place] [address]- 2466 Oct, [facility] [place] [facility] [address] [id number] [place] [address]- 3682 Oct, [facility] [place] [facility] [address] [id number] [place] [address]- 5337 Oct, [facility] [place] [facility] [address] [id number] [place] [address]- 4157 Oct, [facility] [place] [facility] [address] [id number] [place] [address]- 8765 Oct, [facility] [place] [facility] [address] [id number] [place] [address]- 2715 Oct, [facility] [place] [facility] [address] [id number] [place] [address]- 9180 Sep, [facility] [place] [facility] [address] [id number] [place] [address]- 1131 Sep, [facility] [place] [facility] [address] [id number] [place] [address]- 9224 Sep, [facility] [place] [facility] [address] [id number] [place] [address]- 1990 Sep, [facility] [place] [facility] [address] [id number] [place] [address]- 7281 Sep, [facility] [place] [facility] [address] [id number] [place] [address]- 3759 Sep, [facility] [place] [facility] [address] [id number] [place] [address]- 5687 Sep, [facility] [place] [facility] [address] [id number] [place] [address]- 5931 Sep, [facility] [place] [facility] [address] [id number] [place] [address]- 7776 August, [facility] [place] [facility] [address] [id number] [place] [address]- 3467 August, [facility] [place] [facility] [address] [id number] [place] [address]- 1746 August, [facility] [place] [facility] [address] [id number] [place] [address]- 5363 August, [facility] [place] [facility] [address] [id number] [place] [address]- 3056 August, [facility] [address] [facility] [id number] [place] [address]- [address]36 August, [facility] [address] [id number] [address] 1306 August, [facility] [address] [id number] [address]- 0836 August, [facility] [id number] [address]386 August, [facility] [address] [facility] [id number] [place] [address]- 5871 August, [facility] [id number] [address]396 August, [facility] [address] [id number] [address]- 3036 August, [facility] [address] [facility] [id number] [place] [address]- 4535 Oct, IMMUNIZATIONS No Known Immunizations SOCIAL HISTORY Never Assessed REASON FOR VISIT longterm rx PLAN OF CARE VITAL SIGNS MEDICATIONS Medication Instructions Dosage Frequency Start Date End Date Duration Status NovoLog 100 UNIT/ML INJECT 35-40 UNITS SUBCUTANEOUSLY THREE TIMES DAILY Active Ranitidine HCl 150 MG Orally Once a day 2 tablets at bedtime 24h 90 Active Omeprazole 40 mg Orally Once a day 1 capsule 24h 90 days Active Lantus 100 UNIT/ML 55 UNITS TWICE A DAY SUBCUTANEOUS 30 DAYS Active RESULTS No Results PROCEDURES No Known [...] Surgical History bladder surgery Hospitalization History [facility] for right groin pain 05/2011 Hospitalization History Via [facility] for wound on buttocks 08/2012 Hospitalization History Via [facility], hypoxia secondary to pneumonia 12/02-12/09 Hospitalization History Pneumonia, elevated CO2 on Bipap was in ICU 08/2013 Hospitalization History Hypoxia, Exacerbation COPD, Chest pain 09/05/15 Hospitalization History suicidal ideations-[facility] 12/28 Hospitalization History hypoxia--[facility] 02/13/2016 Hospitalization History shortness of breath at june 2016 Hospitalization History Shortness of breath at august 2016 Hospitalization History SOB, chest pain at 12/2016
--- OUTSIDE RECORDS SUMMARY | 2017-11-24 17:38 | XMS REPORT ---
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 [facility] [address], [place] [address]- 8516 Nov, [facility] [address], [place] [address]- 9935 Nov, Lymphedema 457.1 ; Hyperlipidemia 272.4 ; Essential hypertension, benign 401.1 and Numbness of toes 782.0 [facility] [address], [place] [address]- 1176 Nov, Episodic mood disorder 296.90 [facility] [address], [place] [address]- 7924 Oct, [facility] [address], [place] [address]- 2408 Oct, [facility] [address], [place] [address]- 6670 Oct, [facility] [address], [place] [address]- 5793 Oct, [facility] [address], [place] [address]- 6242 Oct, [facility] [address], [place] [address]- 2735 Oct, [facility] [address] [facility] [id number], [place] [address]- 7243 Oct, 2014 [facility] [address] [facility] [id number] [place] [address]- 5894 Oct, [facility] [address] [facility] [id number][place]- 8341 Oct, Episodic mood disorder 296.90 [facility] [address] [facility] [id number] [place] [address]- 1771 30 Sep, 2014 [facility] [address] [facility] [id number] [place] [address]- 8426 Sep, [facility] [address] [facility] [id number], [place] [address]- 1268 Sep, [facility] [address] [facility] [id number], [place] [address]- 1341 Sep, [facility] [address] [facility] [id number], [place] [address]- 0363 Sep, [facility] [address] [facility] [id number], [place] [address]- 2666 Sep, Episodic mood disorder 296.90 [facility] [address] [facility] [id number], [place] [address]- 8131 Sep, Unspecified episodic mood disorder 296.90 [facility] [address], [place] [address]- 2742 18 Sep, 2014 [facility] [address] [facility] [id number], [place] [address]- 254 18 Sep, 2014 [facility] [address] [facility] [id number]- 2621 16 Sep, 2014 Episodic mood disorder 296.90 [facility] [address] [facility] [id number], [place] [address]- 2545 15 Sep, 2014 [facility] [id number], [place] [address]- 8598 Sep, [facility] [address], [place] [address]- 2906 Sep, [facility] [id number] [place] [address] 78481- 5243 Sep, Hematemesis 578.0 and Vomiting 787.03 [facility] [id number] [place] [address] 44356- 0519 Sep, Episodic mood disorder 296.90 [facility] [address], [place] [address]- 0843 Sep, [facility] [id number] [place] [address] 50809- 1386 Sep, [facility] [address], [place] [address]- 4756 Sep, Diabetes mellitus without mention of complication, type II or unspecified type, not stated as uncontrolled 250.00 and Other chronic pain 338.29 [facility] [address], [place] [address]- 5701 Sep, Episodic mood disorder 296.90 [facility] [address], [place] [address]- 5170 Sep, [facility] [address], [place] [address]- 2979 Sep, Episodic mood disorder 296.90 [facility] [address], [place] [address]- 6560 Sep, [facility] [address], [place] [address]- 8456 August, [facility] [address], [place] [address]- 6526 August, [facility] [id number], [place] [address]- 2601 August, Episodic mood disorder 296.90 [facility] [id number], [place] [address]- 4328 August, [facility] [address] [facility] [id number], [place] [address]- 0145 August, Unspecified episodic mood disorder 296.90 [facility] [address] [facility] [id number] [place] [address]- 7414 August, Vomiting 787.03 [facility] [address] [facility] [id number], [place] [address]- 5348 August, [facility] [address] [facility] [id number] [place] [address]- 2829 August, [facility] [address] [facility] [id number] [place] [address]- 1331 August, [facility] [id number] [place] [address]- 2151 August, [facility] [id number], [place] [address]- 9253 August, [facility] [id number] [place] [address]- 8011 Jul, [facility] [id number], [place] [address]- 4645 Jul, [facility] [id number], [place] [address]- 2162 Jul, [facility] [id number], [place] [address]- 7719 Jun, [facility] [address] [facility] [id number] [place] [address]- 7574 Jun, [facility] [address] [facility] [id number], [place] [address]- 9577 Jun, [facility] [address] [facility] [id number], [place] [address]- 1007 Jun, [facility] [id number], [place] [address]- 9354 30 Jun, 2014 [facility] [place] [facility] [address] [id number] [place] [address]- 0090 Jun, [facility] [place] [facility] [address] [id number] [place] [address]- 2521 Jun, [facility] [place] [facility] [address] [id number] [place] [address]- 7486 Jun, [facility] [place] [facility] [address] [id number] [place] [address]- 8535 Jun, [facility] [place] [facility] [address] [id number] [place] [address]- 1010 Jun, [facility] [place] [facility] [address] [id number] [place] [address]- 0207 Jun, [facility] [place] [facility] [address] [id number] [place] [address]- 1573 Jun, [facility] [place] [facility] [address] [id number] [place] [address]- 3371 Jun, [facility] [place] [facility] [address] [id number] [place] [address]- 1928 Jun, [facility] [place] [facility] [address] [id number] [place] [address]- 2175 Jun, [facility] [place] [facility] [address] [id number] [place] [address]- 4983 Jun, [facility] [place] [facility] [address] [id number] [place] [address]- 4653 Jun, [facility] [place] [facility] [address] [id number] [place] [address]- 8866 Jun, [facility] [place] [facility] [address] [id number] [place] [address]- 7028 Jun, [facility] [place] [facility] [address] [id number] [place] [address]- 6185 Jun, [facility] [place] [facility] [address] [id number] [place] [address]- 0959 21 Jun, 2014 [facility] [place] [facility] [address] [id number] [place] [address]- 1546 20 Jun, 2014 [facility] [place] [facility] [address] [id number] [place] [address] 20 Jun, 2014 [facility] [place] [facility] [address] [id number] [place] [address] 20 Jun, 2014 [facility] [place] [facility] [address] [id number] [place] [address] 20 Jun, 2014 [facility] [place] [facility] [address] [id number] [place] [address] 19 Jun, 2014 [facility] [place] [facility] [address] [id number] [place] [address] 19 Jun, 2014 [facility] [place] [facility] [address] [id number] [place] [address] 18 Jun, 2014 [facility] [place] [facility] [address] [id number] [place] [address] 4[address] 18 Jun, 2014 [facility] [place] [facility] [address] [id number] [place] [address] 17 Jun, 2014 [facility] [place] [facility] [address] [id number] [place] [address] 17 Jun, 2014 [facility] [place] [facility] [address] [id number] [place] [address]- [address] 16 Jun, 2014 [facility] [place] [facility] [address] [id number] [place] [address] 16 Jun, 2014 [facility] [place] [facility] [address] [id number] [place] [address] 16 Jun, 2014 [facility] [place] [facility] [address] [id number] [place] [address]- 4436 16 Jun, 2014 [facility] [place] [facility] [address] [id number] [place] [address]- [address]77 16 Jun, 2014 [facility] [place] [facility] [address] [id number] [place] [address] 4724 16 Jun, 2014 [facility] [place] [facility] [address] [id number] [place] [address]- [address] Jun, [facility] [place] [facility] [address] [id number] [place] [address] Jun, [facility] [place] [facility] [address] [id number] [place] [address] Jun, [facility] [place] [facility] [address] [id number] [place] [address]- 80[address] Jun, [facility] [place] [facility] [address] [id number] [place] [address]- 1020 Jun, 2014 [facility] [place] [facility] [address] [id number] [place] [address]- [address]39 Jun, 2014 [facility] [place] [facility] [address] [id number] [place] [address]- 44[address] Jun, 2014 [facility] [place] [facility] [address] [id number] [place] [address]- [address] Jun, [facility] [place] [facility] [address] [id number] [place] [address]- 9091 Jun, 2014 [facility] [place] [facility] [address] [id number] [address] Jun, 2014 [facility] [place] [facility] [address] [id number], [place] [address] Jun, 2014 [facility] [place] [facility] [address] [id number] [place] [address] Jun, [facility] [place] [facility] [address] [id number] [place] [address] Jun, 2014 [facility] [place] [facility] [address] [id number] [place] [address]- [address]061 Jun, 2014 [facility] [place] [facility] [address] [id number] [place] [address]- [address] Jun, [facility] [place] [facility] [address] [id number] [place] [address]- [address]366 Jun, [facility] [place] [facility] [address] [id number] [place] [address] Jun, [facility] [place] [facility] [address] [facility] [id number] [place] [address] Jun, [facility] [place] [facility] [address] [id number] [place] [address] Jun, [facility] [place] [facility] [address] [id number] [place] [address]- 97[address] Jun, [facility] [place] [facility] [address] [facility] [id number] [place] [address] May, 2014 [facility] [place] [facility] [address] [facility] [id number] [place] [address] May, 2014 [facility] [place] [facility] [address] [facility] [id number] [place] [address] 2564 May, [facility] [place] [facility] [address] [facility] [id number] [place] [address]484 May, 2014 [facility] [place] [facility] [address] [facility] [id number] [place] [address] May, 2014 [facility] [place] [facility] [address] [facility] [id number] [place] [address]- 1414 May, 2014 [facility] [address] [facility] [id number] [place] [address]- 2540 May, 2014 [facility] [address] [facility] [id number] [place] [address]- 6061 May, 2014 [facility] [place] [facility] [address] [facility] [id number] [place] [address] May, 2014 [facility] [place] [facility] [address] [facility] [id number] [place] [address] 6[address] b, 2014 [facility] [place] [facility] [address] [facility] [id number] [place] [address] 6580 18 May, 2014 [facility] [place] [facility] [address] [facility] [id number] [place] [address] 6754 18 May, 2014 [facility] [place] [facility] [address] [facility] [id number] [place] [address] 3640 13 May, 2014 [facility] [place] [facility] [address] [facility] [id number] [place] [address]- 0569 13 May, 2014 [facility] [place] [facility] [address] [facility] [id number] [place] [address] 7574 May, 2014 [facility] [place] [facility] [address] [facility] [id number] [place] [address] 5899 May, 2014 [facility] [place] [facility] [address] [id number] [place] [address] May, 2014 [facility] [place] [facility] [address] [facility] [id number] [place] [address] 2620 May, 2014 [facility] [place] [facility] [address] [facility] [id number] [place] [address]- 7332 May, 2014 [facility] [place] [facility] [address] [facility] [id number] [place] [address]- 9475 May, 2014 [facility] [place] [facility] [address] [facility] [id number] [place] [address]- 1869 May, 2014 [facility] [place] [facility] [address] [facility] [id number], [place] [address] May, 2014 [facility] [place] [facility] [address] [facility] [id number] [place] [address]- 6661 May, 2014 [facility] [place] [facility] [address] [facility] [id number], [place] [address] 3487 May, 2014 [facility] [place] [facility] [address] [id number] [place] [address] 9[address] May, [facility] [place] [facility] [address] [id number] [place] [address]- 5835 May, [facility] [place] [facility] [address] [id number] [place] [address]- 1450 May, [facility] [place] [facility] [address] [id number] [place] [address] 1920 Apr, [facility] [place] [facility] [address] [id number] [place] [address]- 6304 Apr, [facility] [place] [facility] [address] [id number] [place] [address]- 4760 Apr, [facility] [place] [facility] [address] [id number] [place] [address]- 4736 Apr, [facility] [place] [facility] [address] [id number] [place] [address]- 9747 Apr, [facility] [place] [facility] [address] [id number] [place] [address]- 8755 Apr, [facility] [place] [facility] [address] [id number] [place] [address]- 3599 Apr, [facility] [place] [facility] [address] [id number], [place] [address] 5[address] Apr, [facility] [place] [facility] [address] [id number], [place] [address] 1248 Apr, [facility] [place] [facility] [address] [id number], [place] [address] 4234 Apr, [facility] [place] [facility] [address] [id number] [place] [address]- 2304 Apr, [facility] [place] [facility] [address] [id number], [place] [address]- 3235 Apr, [facility] [place] [facility] [address] [id number] [place] [address]- 4949 Apr, [facility] [place] [facility] [address] [id number] [place] [address]- 0922 Apr, [facility] [place] [facility] [address] [id number] [place] [address]- 4778 Apr, [facility] [place] [facility] [address] [id number] [place] [address]- 9429 Apr, [facility] [place] [facility] [address] [id number] [place] [address]- 4890 Apr, [facility] [place] [facility] [address] [id number] [place] [address]- 9365 Apr, [facility] [place] [facility] [address] [id number] [place] [address]- 5878 Apr, [facility] [place] [facility] [address] [id number] [place] [address]- 7708 Apr, [facility] [place] [facility] [address] [id number] [place] [address]- 8864 Mar, [facility] [place] [facility] [address] [id number] [place] [address]- 3221 Mar, [facility] [place] [facility] [address] [id number] [place] [address]- 4649 Mar, [facility] [place] [facility] [address] [facility] [id number] [place] [address]- 8482 Mar, [facility] [place] [facility] [address] [id number] [place] [address]- 6306 Mar, [facility] [place] [facility] [address] [id number] [place] [address]- 6148 Mar, [facility] [place] [facility] [address] [id number] [place] [address]- 4889 18 Mar, 2014 [facility] [place] [facility] [address] [id number] [place] [address]- 1049 18 Mar, 2014 [facility] [place] [facility] [address] [id number] [place] [address] 15 Mar, 2014 [facility] [place] [facility] [address] [id number] [place] [address]- 3020 Mar, [facility] [place] [facility] [address] [id number] [place] [address]- 9616 Mar, [facility] [place] [facility] [address] [id number] [place] [address]- 0751 Mar, [facility] [place] [facility] [address] [id number] [place] [address]- 4446 Mar, [facility] [place] [facility] [address] [id number] [place] [address]- 6114 Mar, [facility] [place] [facility] [address] [id number] [place] [address]- 8295 Mar, [facility] [place] [facility] [address] [id number] [place] [address]- 2999 Mar, [facility] [place] [facility] [address] [id number] [place] [address]- 7211 Feb, [facility] [place] [facility] [address] [id number] [place] [address]- 4865 Feb, [facility] [place] [facility] [address] [id number] [place] [address]- 5525 Feb, [facility] [place] [facility] [address] [id number] [place] [address]- 7064 Feb, [facility] [place] [facility] [address] [id number] [place] [address]- 0694 Feb, [facility] [place] [facility] [address] [id number] [place] [address]- 7505 Feb, [facility] [place] [facility] [address] [id number] [place] [address]- 8634 Feb, [facility] [place] [facility] [address] [id number] [place] [address]- 9338 Feb, [facility] [place] [facility] [address] [id number] [place] [address]- 5529 18 Feb, 2014 [facility] [place] [facility] [address] [id number] [place] [address]- 4937 17 Feb, 2014 [facility] [place] [facility] [address] [id number] [place] [address]- 6478 17 Feb, 2014 [facility] [place] [facility] [address] [id number] [place] [address]- 5804 17 Feb, 2014 [facility] [place] [facility] [address] [id number] [place] [address]- 3028 17 Feb, 2014 [facility] [place] [facility] [address] [id number] [place] [address]- 5776 Feb, [facility] [place] [facility] [address] [id number] [place] [address]- 3310 Feb, [facility] [place] [facility] [address] [id number] [place] [address]- 8327 Feb, [facility] [place] [facility] [address] [id number] [place] [address]- 9819 Feb, [facility] [place] [facility] [address] [id number] [place] [address]- 6745 Feb, [facility] [place] [facility] [address] [id number] [place] [address]- 2590 Feb, [facility] [place] [facility] [address] [id number], [place] [address]- 7388 Feb, [facility] [place] [facility] [address] [id number], [place] [address]- 7336 Feb, [facility] [place] [facility] [address] [id number] [place] [address]- 4603 Jan, [facility] [place] [facility] [address] [id number] [place] [address]- 4398 Jan, [facility] [place] [facility] [address] [id number] [place] [address]- 8889 Jan, [facility] [place] [facility] [address] [id number] [place] [address]- 7548 30 Jan, 2013 [facility] [place] [facility] [address] [id number] [place] [address]- 0564 24 Jan, 2013 [facility] [place] [facility] [address] [id number] [place] [address]- 5092 24 Jan, 2014 [facility] [place] [facility] [address] [id number] [place] [address]- 2984 21 Jan, 2014 [facility] [place] [facility] [address] [id number] [place] [address]- 0130 21 Jan, 2013 [facility] [place] [facility] [address] [id number] [place] [address]- 7481 20 Jan, 2014 [facility] [place] [facility] [address] [id number] [place] [address]- 9643 20 Jan, 2014 [facility] [place] [facility] [address] [id number] [place] [address]- 5462 17 Jan, 2014 [facility] [place] [facility] [address] [id number] [place] [address]- 1762 17 Jan, 2014 [facility] [place] [facility] [address] [id number] [place] [address]- 5666 17 Jan, 2013 [facility] [place] [facility] [address] [id number] [place] [address]- 9455 17 Jan, 2013 [facility] [place] [facility] [address] [id number] [place] [address]- 1822 15 Jan, 2014 [facility] [place] [facility] [address] [id number] [place] [address]- 3983 15 Jan, 2014 [facility] [place] [facility] [address] [id number] [place] [address]- 9792 14 Jan, 2014 [facility] [place] [facility] [address] [id number] [place] [address]- 7603 14 Jan, 2013 [facility] [place] [facility] [address] [id number] [place] [address]- 4673 13 Jan, 2014 [facility] [place] [facility] [address] [id number] [place] [address]- 0371 13 Jan, 2014 [facility] [place] [facility] [address] [id number] [place] [address]- 1344 Jan, [facility] [place] [facility] [address] [id number] [place] [address]- 7463 Jan, [facility] [place] [facility] [address] [id number] [place] [address]- 0877 Jan, [facility] [place] [facility] [address] [id number] [place] [address]- 8422 Jan, [facility] [place] [facility] [address] [id number] [place] [address]- 2059 Jan, [facility] [place] [facility] [address] [id number] [place] [address]- 0114 25 Dec, 2013 [facility] [place] [facility] [address] [id number] [place] [address]- 5534 25 Dec, 2013 [facility] [place] [facility] [address] [id number] [place] [address]- 5136 23 Dec, 2013 [facility] [place] [facility] [address] [id number] [place] [address]- 1487 23 Dec, 2013 [facility] [place] [facility] [address] [id number] [place] [address]- 1067 19 Dec, 2013 [facility] [place] [facility] [address] [id number], [place] [address]- 8108 19 Dec, 2013 [facility] [place] [facility] [address] [id number] [place] [address]- 6886 17 Dec, 2013 [facility] [place] [facility] [address] [id number] [place] [address]- 4050 17 Dec, 2013 [facility] [place] [facility] [address] [id number], [place] [address]- 9832 09 Dec, 2013 [facility] [place] [facility] [address] [id number], [place] [address]- 4236 09 Dec, 2013 [facility] [place] [facility] [address] [id number] [place] [address]- 9024 08 Dec, 2013 [facility] [place] [facility] [address] [id number] [place] [address]- 3635 Dec, 2013 [facility] [place] [facility] [address] [id number] [place] [address]- 2937 Dec, 2013 [facility] [place] [facility] [address] [id number] [place] [address]- 6805 Dec, 2013 [facility] [place] [facility] [address] [id number] [place] [address]- 5276 Dec, 2013 [facility] [place] [facility] [address] [id number] [place] [address]- 0078 Dec, 2013 [facility] [place] [facility] [address] [id number] [place] [address]- 9372 Dec, 2013 [facility] [place] [facility] [address] [id number] [place] [address]- 6066 Dec, 2013 [facility] [place] [facility] [address] [id number] [place] [address]- 9211 Nov, [facility] [place] [facility] [address] [id number] [place] [address]- 3861 Nov, [facility] [place] [facility] [address] [id number] [place] [address]- 5584 Nov, [facility] [place] [facility] [address] [id number] [place] [address]- 6900 Nov, [facility] [place] [facility] [address] [id number] [place] [address]- 6689 Nov, [facility] [place] [facility] [address] [id number] [place] [address]- 6506 Nov, [facility] [place] [facility] [address] [id number] [place] [address]- 2311 Nov, [facility] [place] [facility] [address] [id number] [place] [address]- 6612 Nov, [facility] [place] [facility] [address] [id number] [facility] [place] [address]- 9792 Nov, [facility] [place] [facility] [address] [id number] [place] [address]- 7526 Nov, [facility] [place] [facility] [address] [id number] [place] [address]- 4827 Nov, [facility] [place] [facility] [address] [id number] [place] [address]- 4417 Nov, [facility] [place] [facility] [address] [id number] [place] [address]- 8011 Oct, [facility] [place] [facility] [address] [id number] [place] [address]- 7234 Oct, [facility] [place] [facility] [address] [id number] [place] [address]- 6852 Oct, [facility] [place] [facility] [address] [id number] [place] [address]- 5760 Oct, [facility] [place] [facility] [address] [id number] [place] [address]- 6609 Oct, [facility] [place] [facility] [address] [id number] [place] [address]- 9501 Oct, [facility] [place] [facility] [address] [id number] [place] [address]- 3965 Oct, [facility] [place] [facility] [address] [id number] [place] [address]- 3240 Oct, [facility] [place] [facility] [address] [id number] [place] [address]- 7293 Oct, [facility] [place] [facility] [address] [id number] [place] [address]- 4875 Oct, [facility] [place] [facility] [address] [id number] [place] [address]- 8096 Oct, [facility] [place] [facility] [address] [id number] [place] [address]- 7240 16 Oct, 2013 [facility] [place] [facility] [address] [id number] [place] [address]- 5221 14 Oct, 2013 [facility] [place] [facility] [address] [id number] [place] [address]- 2309 14 Oct, 2013 [facility] [place] [facility] [address] [id number] [place] [address]- 3815 13 Oct, 2013 [facility] [place] [facility] [address] [id number] [place] [address]- 3591 Oct, [facility] [place] [facility] [address] [id number] [place] [address]- 8157 Oct, [facility] [place] [facility] [address] [id number] [place] [address]- 9068 27 Sep, 2013 [facility] [place] [facility] [address] [id number] [place] [address]- 8335 27 Sep, 2013 [facility] [place] [facility] [address] [id number] [place] [address]- 4255 20 Sep, 2013 [facility] [place] [facility] [address] [id number] [place] [address]- 1101 20 Sep, 2013 [facility] [place] [facility] [address] [id number] [place] [address]- 1830 18 Sep, 2013 [facility] [place] [facility] [address] [id number] [place] [address]- 4718 18 Sep, 2013 [facility] [place] [facility] [address] [id number] [place] [address]- 9671 17 Sep, 2013 [facility] [place] [facility] [address] [id number] [place] [address]- 7990 17 Sep, 2013 [facility] [place] [facility] [address] [id number] [place] [address]- 6550 11 Sep, 2013 [facility] [place] [facility] [address] [id number] [place] [address]- 9509 Sep, [facility] [place] [facility] [address] [id number] [place] [address]- 4676 Sep, [facility] [place] [facility] [address] [id number] [place] [address]- 3349 Sep, [facility] [place] [facility] [address] [id number] [place] [address]- 4711 Sep, [facility] [place] [facility] [address] [id number] [place] [address]- 7471 Sep, [facility] [place] [facility] [address] [id number] [place] [address]- 0481 Sep, [facility] [place] [facility] [address] [id number] [place] [address]- 9526 Sep, [facility] [place] [facility] [address] [id number] [place] [address]- 1992 Sep, [facility] [place] [facility] [address] [id number] [place] [address]- 3209 Sep, [facility] [place] [facility] [address] [id number] [place] [address]- 7076 Sep, [facility] [place] [facility] [address] [id number] [place] [address]- 5401 Sep, [facility] [place] [facility] [address] [id number] [place] [address]- 8069 Sep, [facility] [place] [facility] [address] [id number] [place] [address]- 4250 Sep, [facility] [place] [facility] [address] [id number] [place] [address]- 3604 August, [facility] [place] [facility] [address] [id number] [place] [address]- 1233 August, [facility] [place] [facility] [address] [id number] [place] [address]- 5489 August, [facility] [place] [facility] [address] [id number] [place] [address]- 1802 August, [facility] [place] [facility] [address] [id number] [place] [address]- 0134 August, [facility] [place] [facility] [address] [id number] [place] [address]- 8717 August, [facility] [place] [facility] [address] [id number] [place] [address]- 1526 August, [facility] [place] [facility] [address] [id number] [place] [address]- 9143 August, [facility] [place] [facility] [address] [id number] [place] [address]- 0600 August, [facility] [place] [facility] [address] [id number] [place] [address]- 1465 August, [facility] [place] [facility] [address] [id number] [place] [address]- 0704 August, [facility] [place] [facility] [address] [id number] [place] [address]- 1917 Jul, [facility] [place] [facility] [address] [id number] [place] [address]- 4208 Jul, [facility] [place] [facility] [address] [id number] [place] [address]- 8074 Jul, [facility] [place] [facility] [address] [id number] [place] [address]- 0769 Jul, [facility] [place] [facility] [address] [id number] [place] [address]- 8330 Jul, [facility] [place] [facility] [address] [id number] [place] [address]- 3949 Jul, [facility] [place] [facility] [address] [id number] [place] [address]- 5220 Jul, [facility] [place] [facility] [address] [id number] [place] [address]- 0900 Jul, [facility] [place] [facility] [address] [id number] [place] [address]- 0594 Jul, [facility] [place] [facility] [address] [id number] [place] [address]- 4019 18 Jul, 2013 [facility] [place] [facility] [address] [id number] [place] [address]- 3138 16 Jul, 2013 [facility] [place] [facility] [address] [id number] [place] [address]- 8260 Jul, [facility] [place] [facility] [address] [id number] [place] [address]- 0111 Jul, [facility] [place] [facility] [address] [id number] [place] [address]- 7448 Jul, [facility] [place] [facility] [address] [id number] [place] [address]- 6758 Jul, [facility] [place] [facility] [address] [id number] [place] [address]- 4484 Jul, [facility] [place] [facility] [address] [id number] [place] [address]- 1976 Jul, [facility] [place] [facility] [address] [id number] [place] [address] Jul, [facility] [place] [facility] [address] [id number] [place] [address] Jul, [facility] [place] [facility] [address] [id number] [place] [address] Jul, [facility] [place] [facility] [address] [id number] [place] [address] Jul, [facility] [place] [facility] [address] [id number] [place] [address] Jul, [facility] [place] [facility] [address] [id number] [place] [address] Jul, [facility] [place] [facility] [address] [id number] [place] [address] Jun, [facility] [address] [id number] [place] [address] Jun, [facility] [place] [facility] [address] [id number] [place] [address] 14[address] Jun, [facility] [place] [facility] [address] [id number] [place] [address] Jun, [facility] [place] [facility] [address] [id number] [place] [address] Jun, [facility] [place] [facility] [address] [id number] [place] [address] Jun, [facility] [place] [facility] [address] [id number] [place] [address] Jun, [facility] [place] [facility] [address] [id number] [place] [address] Jun, [facility] [place] [facility] [address] [id number] [place] [address] Jun, [facility] [place] [facility] [address] [id number] [place] [address] Jun, [facility] [place] [facility] [address] [id number] [place] [address] Jun, [facility] [place] [facility] [address] [id number] [place] [address] Jun, [facility] [place] [facility] [address] [id number] [place] [address] 18 May, 2013 [facility] [place] [facility] [address] [id number] [place] [address] May, [facility] [place] [facility] [address] [id number] [place] [address] Apr, [facility] [place] [facility] [address] [id number] [place] [address] Apr, [facility] [place] [facility] [address] [id number] [place] [address] Apr, [facility] [place] [facility] [address] [id number] [place] [address] Apr, [facility] [place] [facility] [address] [id number] [place] [address] 2256 Apr, [facility] [place] [facility] [address] [id number] [place] [address] Apr, [facility] [place] [facility] [address] [id number] [place] [address] 8[address] Apr, [facility] [place] [facility] [address] [id number] [place] [address] Apr, [facility] [place] [facility] [address] [id number] [place] [address] Apr, [facility] [place] [facility] [address] [id number] [place] [address] Apr, [facility] [place] [facility] [address] [id number] [place] [address] 4[address] Apr, [facility] [place] [facility] [address] [id number], [place] [address] Mar, [facility] [place] [facility] [address] [id number], [place] [address] Mar, [facility] [place] [facility] [address] [id number], [place] [address] Mar, [facility] [place] [facility] [address] [id number] [place] [address] 54[address] Mar, [facility] [place] [facility] [address] [id number], [place] [address] Feb, [facility] [place] [facility] [address] [id number], [place] [address] Feb, [facility] [place] [facility] [address] [id number], [place] [address] Feb, [facility] [place] [facility] [address] [id number] [place] [address] Feb, [facility] [place] [facility] [address] [id number], [place] [address] Feb, [facility] [place] [facility] [address] [facility] [id number] [place] [address] Feb, [facility] [place] [facility] [address] [id number], [place] [address] Feb, [facility] [place] [facility] [address] [facility] [id number] [place] [address] 39[address] Feb, [facility] [place] [facility] [address] [facility] [id number], [place] [address] Feb, [facility] [place] [facility] [address] [facility] [id number], [place] [address] Feb, [facility] [place] [facility] [address] [id number], [place] [address] Feb, [facility] [place] [facility] [address] [facility] [id number], [place] [address] Jan, [facility] [place] [facility] [address] [facility] [id number], [place] [address] Jan, [facility] [place] [facility] [address] [facility] [id number], [place] [address] Jan, [facility] [place] [facility] [address] [facility] [id number], [place] [address] Jan, [facility] [place] [facility] [address] [facility] [id number], [place] [address] Jan, [facility] [place] [facility] [address] [facility] [id number], [place] [address] Jan, [facility] [place] [facility] [address] [facility] [id number], [place] [address] 58[address] Jan, [facility] [place] [facility] [address] [id number] [place] [address] 02 Jan, 2013 [facility] [place] [facility] [address] [id number] [place] [address] 30 Sep, 2012 [facility] [place] [facility] [address] [id number] [place] [address] 2546 25 Dec, 2012 [facility] [place] [facility] [address] [id number] [place] [address] 2546 18 Sep, 2012 [facility] [place] [facility] [address] [id number] [place] [address] 2544 17 Sep, 2012 [facility] [place] [facility] [address] [id number] [place] [address]39 17 Dec, 2012 [facility] [place] [facility] [address] [id number] [place] [address]- [address]193 16 Dec, 2012 [facility] [place] [facility] [address] [id number] [place] [address]- 2663 13 Dec, 2012 [facility] [place] [facility] [address] [id number] [place] [address]- 9658 11 Dec, 2012 [facility] [place] [facility] [address] [id number] [place] [address]- 4837 05 Dec, 2012 [facility] [place] [facility] [address] [id number] [place] [address]- 5402 04 Dec, 2012 [facility] [place] [facility] [address] [id number] [place] [address]- 2614 30 Nov, 2012 [facility] [place] [facility] [address] [id number] [place] [address] 2543 29 Nov, 2012 [facility] [facility] [address] [id number] [place] [address] 22 Nov, 2012 [facility] [place] [facility] [address] [id number] [place] [address] 16 Nov, 2012 [facility] [place] [facility] [address] [id number] [place] [address] Nov, [facility] [place] [facility] [address] [id number] [place] [address] Nov, [facility] [place] [facility] [address] [id number] [place] [address] 74[address] Nov, [facility] [place] [facility] [address] [id number] [place] [address] Oct, [facility] [place] [facility] [address] [id number] [place] [address] Oct, [facility] [place] [facility] [address] [id number] [place] [address] 1859 Oct, [facility] [place] [address] [id number] [place] [address] 3454 Oct, [facility] [place] [facility] [address] [id number] [place] [address] 5541 Oct, [facility] [place] [facility] [address] [id number] [place] [address]- 3721 Oct, [facility] [place] [address] [id number] [place] [address] 26[address] Sep, [facility] [place] [facility] [address] [id number] [place] [address]- 63[address] Sep, [facility] [place] [facility] [address] [id number] [place] [address] 1380 27 Sep, 2012 [facility] [place] [address] [id number] [place] [address]- 5526 14 Sep, 2012 [facility] [place] [address] [id number] [place] [address]- 4353 13 Sep, 2012 [facility] [address] [id number] [place] [address] 5851 10 Sep, 2012 [facility] [address] [id number] [place] [address]- 8344 07 Sep, 2012 [facility] [place] [facility] [address] [id number] [place] [address]- [address] Sep, [facility] [address] [id number] [place] [address] 8100 Sep, [facility] [address] [id number] [place] [address] 2944 August, [facility] [address] [id number] [place] [address] 45[address] August, [facility] [address] [id number] [place] [address] 1224 August, [facility] [address] [id number] [place] [address] 46[address] August, [facility] [address] [id number] [place] [address]- 2398 August, [facility] [address] [id number] [place] [address] 6632 August, [facility] [address] [id number] [place] [address] 4217 August, [facility] [address] [id number] [place] [address]- 0869 August, [facility] [address] [id number] [place] [address] Jul, [facility] [address] [id number] [place] [address] Jul, [facility] [address] [place] [id number] Jul [facility] [address] [id number] [place] [address] 38[address] Jun, [facility] [address] [id number] [place] [address] 4538 Jun, [facility] [address] [id number] [place] [address]- 8944 Jun, [facility] [address] [id number] [place] [address] 9953 Jun, [facility] [address] [id number] [place] [address] 2183 Jun, [facility] [address] [id number] [place] [address]- 0926 Jun, [facility] [address] [id number] [place] [address] 9116 May, [facility] [address] [id number] [place] [address] 7376 May, [facility] [address] [id number] [place] [address]- 9[address] May, [facility] [address] [id number] [place] [address] 7[address] May, [facility] [address] [id number] [place] [address] 0083 May, [facility] [address] [id number] [place] [address] 6257 Apr, [facility] [address] [id number] [place] [address] 5598 Apr, [facility] [address] [id number] [place] [address] 7003 Apr, [facility] [address] [id number] [place] [address] 5829 Apr, [facility] [address] [id number] [place] [address]- 7197 Apr, [facility] [address] [id number] [place] [address]- 2402 Apr, [facility] [address] [id number] [place] [address] 7735 Mar, [facility] [address] [id number] [place] [address]- 6041 20 Mar, 2012 [facility] [address] [id number] [place] [address]- 3566 20 Mar, 2012 [facility] [address] [id number] [place] [address]- 5046 19 Mar, 2012 [facility] [address] [id number] [place] [address] 19 Mar, 2012 [facility] [address] [id number] [place] [address] 18 Mar, 2012 [facility] [address] [id number] [place] [address]- 2359 18 Mar, 2012 [facility] [address] [id number] [place] [address]- 7853 Mar, [facility] [address] [id number] [place] [address]- 3776 Mar, [facility] [address] [id number] [place] [address]- 7015 05 Mar, 2012 [facility] [address] [id number] [place] [address]- 0027 05 Mar, 2012 [facility] [address] [id number] [place] [address]- 4459 28 Feb, 2012 [facility] [address] [id number], [place] [address] 9293 28 Feb, 2012 [facility] [address] [id number], [place] [address] 29[address] Feb, [facility] [address] [id number] [place] [address] 6036 Feb, [facility] [address] [id number] [place] [address] 0058 20 Feb, 2012 [facility] [address] [id number] [place] [address] 16 Feb, 2012 [facility] [address] [id number] [place] [address]- 7977 16 Feb, 2012 [facility] [address] [id number] [place] [address] 06 Feb, 2012 [facility] [address] [id number] [place] [address] Feb, [facility] [address] [id number] [place] [address]- 9134 Feb, [facility] [address] [id number] [place] [address]- 5596 Feb, [facility] [address] [id number] [place] [address] Jan, [facility] [address] [id number] [place] [address]- 8963 Jan, [facility] [address] [id number] [place] [address]- 5494 Jan, [facility] [address] [id number] [place] [address]- 8915 Jan, [facility] [address] [id number] [place] [address]- 8155 Jan, [facility] [address] [facility] [id number] [place] [address]- 8014 Jan, [facility] [address] [id number] [place] [address]- 0329 09 Jan, 2012 [facility] [address] [id number] [place] [address]- 1623 24 Sep2011 [facility] [address] [id number] [place] [address]- 7269 17 Sep2011 [facility] [address] [id number] [place] [address]- 7513 13 Sep2011 [facility] [address] [id number] [place] [address]- 8356 Dec, [facility] [address] [id number] [place] [address]- 9990 Nov, [facility] [address] [id number] [place] [address]- 6296 Nov, [facility] [address] [id number] [place] [address]- 2162 Nov, [facility] [address] [id number] [place] [address]- 7000 Nov, [facility] [address] [id number] [place] [address]- 7912 Nov, [facility] [address] [id number] [place] [address]- 1204 Nov, [facility] [address] [id number] [place] [address]- 5425 Nov, [facility] [address] [id number] [place] [address]- 2617 Nov, [facility] [address] [id number] [place] [address]- 0359 Nov, [facility] [address] [id number] [place] [address]- 3223 Nov, [facility] [address] [id number] [place] [address]- 6964 Nov, [facility] [address] [id number] [place] [address]- 1753 Nov, [facility] [address] [id number] [place] [address]- 0086 Nov, [facility] [address] [id number] [place] [address]- 3686 Oct, [facility] [address] [id number] [place] [address]- 2471 Oct, [facility] [address] [id number] [place] [address]- 4387 Oct, [facility] [address] [id number] [place] [address]- 0246 Oct, [facility] [address] [id number] [place] [address]- 3448 Oct, [facility] [address] [id number] [place] [address]- 3588 Oct, [facility] [address] [id number] [place] [address]- 9075 Oct, [facility] [address] [id number] [place] [address]- 7592 Oct, [facility] [address] [id number] [place] [address]- 5812 Oct, [facility] [address] [id number] [place] [address]- 4460 Sep, [facility] [address] [id number] [place] [address]- 1293 Sep, [facility] [address] [id number] [place] [address]- 6717 Sep, [facility] [address] [id number] [place] [address]- 4277 Sep, [facility] [address] [id number] [place] [address]- 0230 Sep, [facility] [address] [id number] [place] [address]- 6184 Sep, [facility] [address] [id number] [place] [address]- 6246 Sep, [facility] [address] [id number] [place] [address]- 5728 Sep, [facility] [address] [id number] [place] [address]- 8641 August, [facility] [address] [id number], [place] [address]10 August, [facility] [address] [id number], [place] [address] August, [facility] [id number] [address] August, [facility] [id number], [place] [address]- 5669 August, [facility] [id number], [place] [address]- 1357 August, [facility] [id number] [address] [address]85 August, [facility] [id number], [place] [address]- 9239 August, [facility] [id number], [place] [address]- 0289 August, [facility] [id number], [place] [address]- 0174 August, [facility] [id number], [place] [address]- 4584 August, [facility] [address] [id number], [place] [address]- 4348 August, [facility] [address] [id number], [place] [address]- 2779 Oct, IMMUNIZATIONS No Known Immunizations SOCIAL HISTORY [...] Surgical History bladder surgery Hospitalization History Via [facility] for right groin pain 05/2011 Hospitalization History Via [facility] for wound on buttocks 08/2012 Hospitalization History Via [facility], hypoxia secondary to pneumonia 12/02-12/09 Hospitalization History Pneumonia, elevated CO2 on Bipap was in ICU 08/2013 Hospitalization History Hypoxia, Exacerbation COPD, Chest pain 09/05/15 Hospitalization History suicidal ideations-[facility] 12/28 Hospitalization History hypoxia--[facility] 02/13/2016 Hospitalization History shortness of breath at june 2016 Hospitalization History Shortness of breath at august 2016 Hospitalization History SOB, chest pain at 12/2016
--- OUTSIDE RECORDS SUMMARY | 2017-11-24 17:39 | XMS REPORT ---
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 [facility] [id number] [place] [address] 61491 2546 Nov, [facility] [id number] [place] [address] 10995 2546 Nov, Diarrhea 787.91 [facility] [id number] [place] [address] 64138- 2546 Nov, Diarrhea 787.91 and Hyperlipidemia 272.4 [facility] [id number] [place] [address] 38172 2544 Nov, Diarrhea 787.91 [facility] [id number] [place] [address] 56500- 2746 Nov, Affective disorder 296.90 [facility] [id number] [place] [address] 55169 2546 Nov, Affective disorder 296.90 [facility] [id number] [place] [address] 51276- 0482 Nov, Affective disorder 296.90 [facility] [id number] [place] [address] 46465- 2404 Nov, [facility] [id number] [place] [address] 42492 2546 Nov, [facility] [id number] [place] [address] 49521 2546 Nov, [facility] [id number] [place] [address] 06110 2547 Nov, Episodic mood disorder 296.90 [facility] [address], [place] [address] 2548 Nov, [facility] [id number] [place] [address] 93605- 5544 Nov, [facility] [id number], [place] [address]- 3434 Nov, [facility] [id number] [address]- 7456 Nov, [facility] [id number], [place] [address]- 4663 Nov, [facility] [id number] [place] [address] 86986- 4043 Nov, Lymphedema 457.1 ; Hyperlipidemia 272.4 ; Essential hypertension, benign 401.1 and Numbness of toes 782.0 [facility] [id number], [place] [address]- 5091 Nov, Episodic mood disorder 296.90 [facility] [id number], [place] [address]- 3020 Oct, [facility] [id number], [place] [address]- 1850 Oct, [facility] [id number], [place] [address]- 9630 Oct, [facility] [id number], [place] [address]- 1103 Oct, [facility] [id number], [place] [address]- 3042 Oct, [facility] [id number], [place] [address]- 3864 Oct, [facility] [id number], [place] [address]- 0871 Oct, [facility] [id number] 8597 Oct, [facility] [id number] 1867 Oct, Episodic mood disorder 296.90 [facility] [id number], [place] [address]- 2824 30 Sep, 2014 [facility] [id number], [place] [address]- 2552 29 Sep, 2014 [facility] [id number], [place] [address]- 5714 26 Sep, 2014 [facility] [id number] [place] [address] 93421- 1811 Sep, [facility] [id number], [place] [address]- 2998 Sep, [facility] [id number] [place] [address] 61456- 3760 Sep, Episodic mood disorder 296.90 [facility] [id number], [place] [address]- 3878 19 Sep, 2014 Unspecified episodic mood disorder 296.90 [facility] [id number], [place] [address]- 3172 18 Sep, 2014 [facility] [id number] [place] [address] 32036- 7166 18 Sep, 2014 [facility] [address], [place] [address]- 6163 16 Sep, 2014 Episodic mood disorder 296.90 [facility] [id number], [place] [address]- 4944 15 Sep, 2014 [facility] [id number], [place] [address]- 5359 15 Sep, 2014 [facility] [id number], [place] [address]- 7902 12 Sep, 2014 [facility] [id number], [place] [address]- 3587 09 Sep, 2014 Hematemesis 578.0 and Vomiting 787.03 [facility] [id number] [place] [address] 95734- 9636 Sep, Episodic mood disorder 296.90 [facility] [id number], [place] [address]- 2692 Sep, [facility] [id number], [place] [address]- 7672 Sep, [facility] [id number], [place] [address]- 9521 Sep, Diabetes mellitus without mention of complication, type II or unspecified type, not stated as uncontrolled 250.00 and Other chronic pain 338.29 [facility] [id number] [place] [address] 17240- 6333 Sep, Episodic mood disorder 296.90 [facility] [id number] [place] [address] 42012- 0937 Sep, [facility] [id number] [place] [address] 27377- 2972 Sep, Episodic mood disorder 296.90 [facility] [address], [place] [address]- 7828 Sep, [facility] [id number], [place] [address]- 5273 August, [facility] [id number], [place] [address]- 0089 August, [facility] [id number], [place] [address]- 7306 August, Episodic mood disorder 296.90 [facility] [id number], [place] [address]- 8188 August, [facility] [id number], [place] [address]- 5731 August, Unspecified episodic mood disorder 296.90 [facility] [id number], [place] [address]- 7034 August, Vomiting 787.03 [facility] [id number] [place] [address]- 6566 August, [facility] [place] [facility] [address] [id number] [place] [address]- 4473 August, [facility] [place] [facility] [address] [id number] [place] [address]- 3346 August, [facility] [place] [facility] [address] [id number] [place] [address]- 7048 August, [facility] [place] [facility] [address] [id number] [place] [address]- 0506 August, [facility] [place] [facility] [address] [id number] [place] [address]- 4741 Jul, [facility] [place] [facility] [address] [id number] [place] [address]- 8928 Jul, [facility] [place] [facility] [address] [id number] [place] [address]- 5816 Jul, [facility] [address] [id number] [place] [address]- 0683 Jun, [facility] [place] [facility] [address] [id number] [place] [address]- 1192 Jun, [facility] [place] [facility] [address] [id number] [place] [address]- 7183 Jun, [facility] [place] [facility] [address] [id number] [place] [address]- 1217 Jun, [facility] [place] [facility] [address] [id number] [place] [address]- 2327 Jun, [facility] [place] [facility] [address] [id number] [place] [address]- 1413 Jun, [facility] [place] [facility] [address] [id number] [place] [address]- 8016 Jun, [facility] [place] [facility] [address] [id number] [place] [address]- 9666 Jun, [facility] [place] [facility] [address] [id number] [place] [address]- 5395 Jun, [facility] [place] [facility] [address] [id number] [place] [address]- 7076 Jun, [facility] [place] [facility] [address] [id number] [place] [address]- 2207 Jun, [facility] [place] [facility] [address] [id number] [place] [address]- 9979 Jun, [facility] [place] [facility] [address] [id number] [place] [address]- 6264 Jun, [facility] [place] [facility] [address] [id number] [place] [address]- 0060 Jun, [facility] [place] [facility] [address] [id number] [place] [address]- 4500 Jun, [facility] [place] [facility] [address] [id number] [place] [address]- 5088 Jun, [facility] [place] [facility] [address] [id number] [place] [address]- 3615 Jun, [facility] [place] [facility] [address] [id number] [place] [address]- 9397 Jun, [facility] [place] [facility] [address] [id number] [place] [address]- 8600 Jun, [facility] [place] [facility] [address] [id number] [place] [address]- 4890 Jun, [facility] [place] [facility] [address] [id number] [place] [address]- 7360 Jun, [facility] [place] [facility] [address] [id number] [place] [address]- 0778 Jun, [facility] [place] [facility] [address] [id number] [place] [address]- 4610 Jun, [facility] [place] [facility] [address] [id number] [place] [address]- 8748 20 Jun, 2014 [facility] [place] [facility] [address] [id number] [place] [address]- 7811 20 Jun, 2014 [facility] [place] [facility] [address] [id number] [place] [address]- 2227 19 Jun, 2014 [facility] [place] [facility] [address] [id number] [place] [address]- 7550 19 Jun, 2014 [facility] [place] [facility] [address] [id number] [place] [address]- 9547 18 Jun, 2014 [facility] [place] [facility] [address] [id number] [place] [address]- 1690 18 Jun, 2014 [facility] [place] [facility] [address] [id number] [place] [address]- 4710 17 Jun, 2014 [facility] [place] [facility] [address] [id number] [place] [address]- 0873 17 Jun, 2014 [facility] [place] [facility] [address] [id number] [place] [address]- 7102 16 Jun, 2014 [facility] [place] [facility] [address] [id number] [place] [address]- 0078 16 Jun, 2014 [facility] [place] [facility] [address] [id number] [place] [address]- 2099 16 Jun, 2014 [facility] [place] [facility] [address] [id number] [place] [address]- 2255 16 Jun, 2014 [facility] [place] [facility] [address] [id number] [place] [address]- 1722 16 Jun, 2014 [facility] [place] [facility] [address] [id number] [place] [address]- 2069 16 Jun, 2014 [facility] [place] [facility] [address] [id number] [place] [address]- 7652 13 Jun, 2014 [facility] [place] [facility] [address] [id number] [place] [address]- 8910 13 Jun, 2014 [facility] [place] [facility] [address] [id number] [place] [address]- 4269 Jun, 2014 [facility] [place] [facility] [address] [id number] [place] [address]- 8345 Jun, 2014 [facility] [place] [facility] [address] [id number] [place] [address]- 8886 Jun, 2014 [facility] [place] [facility] [address] [id number] [place] [address] Jun, 2014 [facility] [place] [facility] [address] [id number] [place] [address] Jun, 2014 [facility] [place] [facility] [address] [id number] [place] [address] Jun, 2014 [facility] [place] [facility] [address] [id number] [place] [address] Jun, 2014 [facility] [place] [facility] [address] [id number] [place] [address] Jun, 2014 [facility] [place] [facility] [address] [id number] [place] [address] Jun, [facility] [place] [facility] [address] [id number] [place] [address] Jun, 2014 [facility] [place] [facility] [address] [id number] [place] [address] Jun, 2014 [facility] [place] [facility] [address] [id number] [place] [address] Jun, 2014 [facility] [place] [facility] [address] [id number] [place] [address] Jun, 2014 [facility] [place] [facility] [address] [id number] [place] [address] Jun, 2014 [facility] [place] [facility] [address] [id number] [place] [address] Jun, 2014 [facility] [place] [facility] [address] [id number] [place] [address] Jun, [facility] [place] [facility] [address] [facility] [id number] [place] [address] Jun, [facility] [place] [facility] [address] [facility] [id number] [place] [address]169 Jun, [facility] [place] [facility] [address] [facility] [id number] [place] [address] May, 2014 [facility] [place] [facility] [address] [facility] [id number] [place] [address] May, 2014 [facility] [place] [facility] [address] [facility] [id number] [place] [address] May, 2014 [facility] [place] [facility] [address] [facility] [id number] [place] [address] May, 2014 [facility] [place] [facility] [address] [id number] [place] [address] May, 2014 [facility] [place] [facility] [address] [facility] [id number] [place] [address] 7916 May, 2014 [facility] [place] [facility] [address] [id number] [place] [address] May, 2014 [facility] [place] [facility] [address] [facility] [id number] [place] [address]- 1331 May, 2014 [facility] [place] [facility] [address] [id number] [place] [address] May, 2014 [facility] [place] [facility] [address] [facility] [id number], [place] [address] May, 2014 [facility] [place] [facility] [address] [facility] [id number] [place] [address]- 9380 May, 2014 [facility] [place] [facility] [address] [facility] [id number], [place] [address] May, 2014 [facility] [place] [facility] [address] [id number], [place] [address] May, 2014 [facility] [place] [facility] [address] [id number] [place] [address] May, 2014 [facility] [place] [facility] [address] [id number] [place] [address]- [address]206 May, 2014 [facility] [place] [facility] [address] [facility] [id number] [place] [address]117 May, 2014 [facility] [place] [facility] [address] [facility] [id number] [place] [address]- [address]458 May, 2014 [facility] [place] [facility] [address] [facility] [id number] [place] [address]- 1675 May, 2014 [facility] [place] [facility] [address] [facility] [id number] [place] [address]- [address] May, 2014 [facility] [place] [facility] [address] [facility] [id number] [place] [address] May, 2014 [facility] [place] [facility] [address] [facility] [id number] [place] [address] 7535 May, 2014 [facility] [place] [facility] [address] [facility] [id number] [place] [address]- [address]793 May, 2014 [facility] [place] [facility] [address] [facility] [id number] [place] [address]- [address]25 May, 2014 [facility] [place] [facility] [address] [facility] [id number] [place] [address] May, 2014 [facility] [place] [facility] [address] [facility] [id number] [place] [address]- [address]406 May, 2014 [facility] [place] [facility] [address] [facility] [id number] [place] [address]- 6380 May, 2014 [facility] [place] [facility] [address] [facility] [place] [id number] [place] [address] May, 2014 [facility] [place] [facility] [address] [facility] [place] [id number] [place] [address] Apr, [facility] [place] [facility] [address] [id number] [place] [address] 04[address] Apr, [facility] [place] [facility] [address] [id number] [place] [address] 44[address] Apr, [facility] [place] [facility] [address] [id number] [place] [address] 51[address] Apr, [facility] [place] [facility] [address] [id number] [place] [address] Apr, [facility] [place] [facility] [address] [id number] [place] [address] 7643 Apr, [facility] [place] [facility] [address] [id number] [place] [address] 3313 Apr, [facility] [place] [facility] [address] [id number] [place] [address]- 0845 Apr, [facility] [place] [facility] [address] [id number] [place] [address] 2990 Apr, [facility] [place] [facility] [address] [id number] [place] [address] 1513 Apr, [facility] [place] [facility] [address] [id number] [place] [address] 4369 Apr, [facility] [place] [facility] [address] [id number] [place] [address]- 4678 Apr, [facility] [place] [facility] [address] [id number] [place] [address]- 1723 Apr, [facility] [place] [facility] [address] [id number] [place] [address]- 9715 Apr, [facility] [place] [facility] [address] [id number] [place] [address]- 4393 Apr, [facility] [place] [facility] [address] [id number] [place] [address]- 8916 Apr, [facility] [place] [facility] [address] [id number] [place] [address]- 0830 Apr, [facility] [place] [facility] [address] [id number] [place] [address]- 4668 Apr, [facility] [place] [facility] [address] [id number] [place] [address]- 4092 Apr, [facility] [place] [facility] [address] [id number] [place] [address]- 5477 Apr, [facility] [place] [facility] [address] [id number] [place] [address]- 1292 Mar, [facility] [place] [facility] [address] [id number] [place] [address]- 9664 Mar, [facility] [place] [facility] [address] [id number] [place] [address]- 4771 Mar, [facility] [place] [facility] [address] [id number] [place] [address]- 6510 Mar, [facility] [place] [facility] [address] [id number] [place] [address]- 1091 Mar, [facility] [place] [facility] [address] [id number] [place] [address]- 6114 Mar, [facility] [place] [facility] [address] [id number] [place] [address]- 3526 Mar, [facility] [place] [facility] [address] [id number] [place] [address]- 9751 18 Mar, 2014 [facility] [place] [facility] [address] [id number], [place] [address] 15 Mar, 2014 [facility] [place] [facility] [address] [id number] [place] [address]- 7223 15 Mar, 2014 [facility] [place] [facility] [address] [id number] [place] [address]- 7855 15 Mar, 2014 [facility] [place] [facility] [address] [id number] [place] [address]- 7206 15 Mar, 2014 [facility] [place] [facility] [address] [id number] [place] [address]- 5334 Mar, [facility] [place] [facility] [address] [id number] [place] [address]- 3527 Mar, [facility] [place] [facility] [address] [id number] [place] [address]- 0001 Mar, [facility] [place] [facility] [address] [id number] [place] [address]- 0292 Mar, [facility] [place] [facility] [address] [id number] [place] [address]- 6667 Feb, [facility] [place] [facility] [address] [id number] [place] [address]- 0019 Feb, [facility] [place] [facility] [address] [id number] [place] [address]- 9877 Feb, [facility] [place] [facility] [address] [id number] [place] [address]- 6018 Feb, [facility] [place] [facility] [address] [id number] [place] [address]- 6794 Feb, [facility] [place] [facility] [address] [id number] [place] [address]- 5212 Feb, [facility] [place] [facility] [address] [facility] [place] [id number] [place] [address]- 4950 Feb, [facility] [place] [facility] [address] [id number] [place] [address]- 5418 Feb, [facility] [place] [facility] [address] [id number] [place] [address]- 2664 Feb, [facility] [place] [facility] [address] [id number] [place] [address]- 5538 Feb, [facility] [place] [facility] [address] [id number] [place] [address]- 4859 Feb, [facility] [place] [facility] [address] [id number] [place] [address]- 2319 Feb, [facility] [place] [facility] [address] [id number] [place] [address]- 1643 Feb, [facility] [place] [facility] [address] [id number] [place] [address]- 7230 Feb, [facility] [place] [facility] [address] [id number] [place] [address]- 9884 Feb, [facility] [place] [facility] [address] [id number] [place] [address]- 5379 Feb, [facility] [place] [facility] [address] [id number] [place] [address]- 3051 Feb, [facility] [place] [facility] [address] [id number] [place] [address]- 8829 Feb, [facility] [place] [facility] [address] [id number] [place] [address]- 3058 Feb, [facility] [place] [facility] [address] [id number] [place] [address]- 7358 Feb, [facility] [place] [facility] [address] [id number] [place] [address]- 9826 Feb, [facility] [place] [facility] [address] [id number] [place] [address]- 9838 Jan, [facility] [place] [facility] [address] [id number] [place] [address]- 4653 Jan, [facility] [place] [facility] [address] [id number] [place] [address]- 0613 Jan, [facility] [place] [facility] [address] [id number] [place] [address]- 4297 Jan, [facility] [place] [facility] [address] [id number] [place] [address]- 2217 Jan, [facility] [place] [facility] [address] [id number] [place] [address]- 1556 Jan, [facility] [place] [facility] [address] [id number] [place] [address]- 4977 21 Jan, 2014 [facility] [place] [facility] [address] [id number] [place] [address]- 4019 21 Jan, 2014 [facility] [place] [facility] [address] [id number] [place] [address]- 5889 20 Jan, 2014 [facility] [place] [facility] [address] [id number] [place] [address]- 4461 20 Jan, 2014 [facility] [place] [facility] [address] [id number] [place] [address]- 5680 17 Jan, 2013 [facility] [place] [facility] [address] [id number] [place] [address]- 4265 17 Jan, 2014 [facility] [place] [facility] [address] [id number] [place] [address]- 5608 17 Jan, 2014 [facility] [place] [facility] [address] [id number] [place] [address]- 9278 17 Jan, 2014 [facility] [place] [facility] [address] [id number] [place] [address]- 3225 15 Jan, 2014 [facility] [place] [facility] [address] [id number] [place] [address]- 0258 15 Jan, 2014 [facility] [place] [facility] [address] [id number] [place] [address]- 5393 14 Jan, 2014 [facility] [place] [facility] [address] [id number], [place] [address]- 2475 14 Jan, 2014 [facility] [place] [facility] [address] [id number], [place] [address]- 5984 13 Jan, 2014 [facility] [place] [facility] [address] [id number] [place] [address]- 4175 13 Jan, 2014 [facility] [place] [facility] [address] [id number] [place] [address]- 0257 13 Jan, 2014 [facility] [place] [facility] [address] [id number] [place] [address]- 0012 13 Jan, 2013 [facility] [place] [facility] [address] [id number] [place] [address]- 3440 10 Jan, 2013 [facility] [place] [facility] [address] [id number] [place] [address]- 1872 02 Jan, 2014 [facility] [place] [facility] [address] [id number] [place] [address]- 2796 Jan, [facility] [place] [facility] [address] [id number] [place] [address]- 2493 25 Dec, 2013 [facility] [place] [facility] [address] [id number] [place] [address]- 8265 25 Dec, 2013 [facility] [place] [facility] [address] [id number] [place] [address]- 6521 23 Dec, 2013 [facility] [place] [facility] [address] [id number] [place] [address]- 0810 23 Dec, 2013 [facility] [place] [facility] [address] [id number] [place] [address]- 1687 19 Dec, 2013 [facility] [place] [facility] [address] [id number] [place] [address]- 2058 19 Dec, 2013 [facility] [place] [facility] [address] [id number] [place] [address]- 4208 17 Dec, 2013 [facility] [place] [facility] [address] [id number] [place] [address]- 9625 17 Sep, 2013 [facility] [place] [facility] [address] [id number] [place] [address]- 2545 09 Sep, 2013 [facility] [place] [facility] [address] [id number] [place] [address]- 254 09 Sep, 2013 [facility] [place] [facility] [address] [id number] [place] [address]- 5210 08 Sep, 2013 [facility] [place] [facility] [address] [id number] [place] [address]- 2548 08 Sep, 2013 [facility] [place] [facility] [address] [id number] [place] [address]- 8744 04 Sep, 2013 [facility] [place] [facility] [address] [id number] [place] [address]- 1926 Dec, 2013 [facility] [place] [facility] [address] [id number] [place] [address]- 1241 Dec, 2013 [facility] [place] [facility] [address] [id number] [place] [address]- 6022 Dec, 2013 [facility] [place] [facility] [address] [id number] [place] [address]- 3953 Dec, 2013 [facility] [place] [facility] [address] [id number] [place] [address]- 8041 Dec, [facility] [place] [facility] [address] [id number] [place] [address]- 5674 Nov, [facility] [place] [facility] [address] [id number] [place] [address]- 0813 Nov, [facility] [place] [facility] [address] [id number] [place] [address]- 5262 Nov, [facility] [place] [facility] [address] [id number] [place] [address]- 9539 Nov, [facility] [place] [facility] [address] [id number] [place] [address]- 3414 Nov, [facility] [place] [facility] [address] [id number], [place] [address]- 2278 Nov, [facility] [place] [facility] [address] [id number], [place] [address]- 4264 Nov, [facility] [place] [facility] [address] [id number] [place] [address]- 0381 Nov, [facility] [place] [facility] [address] [id number] [place] [address]- 4866 Nov, [facility] [place] [facility] [address] [id number] [place] [address]- 5473 Nov, [facility] [place] [facility] [address] [id number], [place] [address]- 1447 Nov, [facility] [place] [facility] [address] [id number] [place] [address]- 4841 Nov, [facility] [place] [facility] [address] [id number] [place] [address]- 3782 Oct, [facility] [place] [facility] [address] [id number] [place] [address]- 9148 Oct, [facility] [place] [facility] [address] [id number] [place] [address]- 2065 Oct, [facility] [place] [facility] [address] [id number] [place] [address]- 3656 Oct, [facility] [place] [facility] [address] [id number] [place] [address]- 1333 Oct, [facility] [place] [facility] [address] [id number] [place] [address]- 7370 Oct, [facility] [place] [facility] [address] [id number] [place] [address]- 5171 Oct, [facility] [place] [facility] [address] [id number] [place] [address]- 7128 Oct, [facility] [place] [facility] [address] [id number] [place] [address]- 4998 Oct, [facility] [place] [facility] [address] [id number] [place] [address]- 5951 Oct, [facility] [place] [facility] [address] [id number] [place] [address]- 3153 Oct, [facility] [place] [facility] [address] [id number] [place] [address]- 4640 Oct, [facility] [place] [facility] [address] [id number] [place] [address]- 4849 Oct, [facility] [place] [facility] [address] [id number] [place] [address]- 9717 Oct, [facility] [place] [facility] [address] [id number] [place] [address]- 6670 13 Oct, 2013 [facility] [place] [facility] [address] [id number] [place] [address]- 4741 13 Oct, 2013 [facility] [place] [facility] [address] [id number] [place] [address]- 2510 Oct, [facility] [place] [facility] [address] [id number] [place] [address]- 6394 Sep, [facility] [place] [facility] [address] [id number] [place] [address]- 0908 Sep, [facility] [place] [facility] [address] [id number] [place] [address]- 7548 Sep, [facility] [place] [facility] [address] [id number] [place] [address]- 5477 Sep, [facility] [place] [facility] [address] [id number] [place] [address]- 6171 18 Sep, 2013 [facility] [place] [facility] [address] [id number] [place] [address]- 1756 18 Sep, 2013 [facility] [place] [facility] [address] [id number] [place] [address]- 3688 17 Sep, 2013 [facility] [place] [facility] [address] [id number] [place] [address]- 7640 17 Sep, 2013 [facility] [place] [facility] [address] [id number] [place] [address]- 6354 Sep, [facility] [place] [facility] [address] [id number] [place] [address]- 2120 Sep, [facility] [place] [facility] [address] [id number] [place] [address]- 3940 Sep, [facility] [place] [facility] [address] [id number] [place] [address]- 0509 Sep, [facility] [place] [facility] [address] [id number] [place] [address]- 0879 Sep, [facility] [place] [facility] [address] [id number] [place] [address]- 9491 Sep, [facility] [place] [facility] [address] [id number] [place] [address]- 0344 Sep, [facility] [place] [facility] [address] [id number] [place] [address]- 4938 Sep, [facility] [place] [facility] [address] [id number] [place] [address]- 4129 Sep, [facility] [place] [facility] [address] [id number] [place] [address]- 8807 Sep, [facility] [place] [facility] [address] [id number] [place] [address]- 6551 Sep, [facility] [place] [facility] [address] [id number] [place] [address]- 9591 Sep, [facility] [place] [facility] [address] [id number] [place] [address]- 2663 Sep, [facility] [place] [facility] [address] [id number] [place] [address]- 9968 Sep, [facility] [place] [facility] [address] [id number] [place] [address]- 6245 August, [facility] [place] [facility] [address] [id number] [place] [address]- 0059 August, [facility] [place] [facility] [address] [id number], [place] [address]- 8401 August, [facility] [place] [facility] [address] [id number] [place] [address]- 9204 August, [facility] [place] [facility] [address] [id number] [place] [address]- 6930 August, [facility] [place] [facility] [address] [id number] [place] [address]- 2097 August, [facility] [place] [facility] [address] [id number] [place] [address]- 2526 August, [facility] [place] [facility] [address] [id number] [place] [address]- 6899 August, [facility] [place] [facility] [address] [id number] [place] [address]- 6601 August, [facility] [place] [facility] [address] [id number] [place] [address]- 9741 August, [facility] [place] [facility] [address] [id number] [place] [address]- 8341 August, [facility] [place] [facility] [address] [id number] [place] [address]- 5572 Jul, [facility] [place] [facility] [address] [id number] [place] [address]- 3596 Jul, [facility] [place] [facility] [address] [id number] [place] [address]- 0547 Jul, [facility] [place] [facility] [address] [id number] [place] [address]- 9767 Jul, [facility] [place] [facility] [address] [id number] [place] [address]- 7531 Jul, [facility] [place] [facility] [address] [id number] [place] [address]- 8338 Jul, [facility] [place] [facility] [address] [id number] [place] [address]- 8258 Jul, [facility] [place] [facility] [address] [id number] [place] [address]- 4190 Jul, [facility] [place] [facility] [address] [id number] [place] [address]- 2435 Jul, [facility] [place] [facility] [address] [id number] [place] [address]- 3270 Jul, [facility] [place] [facility] [address] [id number] [place] [address]- 0318 Jul, [facility] [place] [facility] [address] [id number] [place] [address]- 6809 Jul, [facility] [place] [facility] [address] [id number] [place] [address]- 8537 Jul, [facility] [place] [facility] [address] [id number] [place] [address]- 6277 Jul, [facility] [place] [facility] [address] [id number] [place] [address]- 9823 Jul, [facility] [place] [facility] [address] [id number] [place] [address]- 1748 Jul, [facility] [place] [facility] [address] [id number] [place] [address]- 9645 Jul, [facility] [place] [facility] [address] [id number] [place] [address]- 5534 Jul, [facility] [place] [facility] [address] [id number] [place] [address]- 3767 Jul, [facility] [place] [facility] [address] [id number] [place] [address]- 0340 Jul, [facility] [place] [facility] [address] [id number] [place] [address]- 4622 Jul, [facility] [place] [facility] [address] [id number] [place] [address]- 1492 Jul, [facility] [place] [facility] [address] [id number] [place] [address]- 5775 Jul, [facility] [place] [facility] [address] [id number] [place] [address]- 5784 Jun, [facility] [place] [facility] [address] [id number] [place] [address]- 7470 Jun, [facility] [place] [facility] [address] [id number] [place] [address]- 4404 Jun, [facility] [place] [facility] [address] [id number] [place] [address]- 8665 Jun, [facility] [place] [facility] [address] [id number] [place] [address]- 5203 Jun, [facility] [place] [facility] [address] [id number] [place] 3506 Jun, [facility] [place] [facility] [address] [id number] [place] [address]- 1493 Jun, [facility] [place] [facility] [address] [id number] [place] [address]- 4022 Jun, [facility] [place] [facility] [address] [id number] [place] [address]- 5987 Jun, [facility] [place] [facility] [address] [id number] [place] [address]- 0573 Jun, [facility] [place] [facility] [address] [id number] [place] [address]- 0069 Jun, [facility] [place] [facility] [address] [id number] [place] [address] Jun, [facility] [place] [facility] [address] [id number] [place] [address] May, [facility] [place] [facility] [address] [id number] [place] [address] May, [facility] [place] [facility] [address] [id number] [place] [address] Apr, [facility] [place] [facility] [address] [id number] [place] [address] Apr, [facility] [place] [facility] [address] [id number] [place] [address] Apr, [facility] [place] [facility] [address] [id number] [place] [address] Apr, [facility] [place] [facility] [address] [id number] [place] [address] Apr, [facility] [place] [facility] [address] [id number] [place] [address] Apr, [facility] [address] [id number] [place] [address] Apr, [facility] [place] [facility] [address] [id number] [place] [address] Apr, [facility] [address] [id number] [place] [address] Apr, [facility] [place] [facility] [address] [id number] [place] [address] Apr, [facility] [address] [id number] [place] [address] Apr, [facility] [address] [id number] [place] [address]65 Mar, [facility] [place] [facility] [address] [id number] [place] [address] Mar, [facility] [address] [id number] [place] [address] Mar, [facility] [address] [id number] [place] [address] Mar, [facility] [address] [id number] [place] [address] Feb, [facility] [place] [facility] [address] [id number] [place] [address] Feb, [facility] [place] [facility] [address] [id number] [place] [address] Feb, [facility] [place] [facility] [address] [id number] [place] [address] Feb, [facility] [place] [facility] [address] [id number] [place] [address] Feb, [facility] [place] [facility] [address] [id number] [place] [address] Feb, [facility] [place] [facility] [address] [id number] [place] [address] Feb, [facility] [place] [facility] [address] [id number] [place] [address] 1675 Feb, [facility] [place] [facility] [address] [id number] [place] [address] 9727 Feb, [facility] [place] [facility] [address] [id number] [place] [address] Feb, [facility] [place] [facility] [address] [id number] [place] [address]247 Feb, [facility] [place] [facility] [address] [id number] [place] [address] Jan, [facility] [place] [facility] [address] [id number] [place] [address] Jan, [facility] [place] [facility] [address] [id number], [place] [address] Jan, [facility] [place] [facility] [address] [id number], [place] [address] Jan, [facility] [place] [facility] [address] [id number], [place] [address] Jan, [facility] [place] [facility] [address] [id number], [place] [address] Jan, [facility] [place] [facility] [address] [id number], [place] [address] Jan, [facility] [place] [facility] [address] [id number], [place] [address] Jan, [facility] [place] [facility] [address] [id number], [place] [address] Dec, [facility] [place] [facility] [address] [id number], [place] [address] Dec, [facility] [place] [facility] [address] [id number] [place] [address] 18 Sep, 2012 [facility] [place] [facility] [address] [id number] [place] [address]- 8546 17 Sep, 2012 [facility] [place] [facility] [address] [id number] [place] [address] 17 Dec, 2012 [facility] [place] [facility] [address] [id number] [place] [address]- [address]288 16 Dec, 2012 [facility] [place] [facility] [address] [id number] [place] [address]- [address]458 13 Dec, 2012 [facility] [place] [facility] [address] [id number] [place] [address]- 2615 11 Dec, 2012 [facility] [place] [facility] [address] [id number] [place] [address]- [address] 05 Dec, 2012 [facility] [place] [facility] [address] [id number] [place] [address]- [address]84 04 Dec, 2012 [facility] [place] [facility] [address] [id number] [place] [address]- 8244 30 Nov, 2012 [facility] [place] [facility] [address] [id number] [place] [address]- 8124 29 Nov, 2012 [facility] [place] [facility] [address] [id number] [place] [address]- [address]443 22 Nov, 2012 [facility] [place] [facility] [address] [id number] [place] [address]- 4535 16 Nov, 2012 [facility] [place] [facility] [address] [id number] [place] [address]- 2547 14 Nov, 2012 [facility] [place] [facility] [address] [id number] [place] [address]- 2872 Nov, [facility] [place] [facility] [address] [id number] [place] [address]- 1215 05 Nov, 2012 [facility] [place] [facility] [address] [id number] [place] [address] 5188 29 Oct, 2012 [facility] [place] [facility] [address] [id number] [place] [address] 6060 24 Oct, 2012 [facility] [place] [facility] [address] [id number] [place] [address]- 0973 24 Oct, 2012 [facility] [place] [facility] [address] [id number] [place] [address]- 0880 17 Oct, 2012 [facility] [place] [facility] [address] [id number] [place] [address]- 8295 15 Oct, 2012 [facility] [place] [facility] [address] [id number] [place] [address]- 9471 Oct, [facility] [place] [facility] [address] [id number] [place] [address]- 3567 Sep, [facility] [place] [facility] [address] [id number] [place] [address]- 0942 Sep, [facility] [place] [facility] [address] [id number] [place] [address]- 0340 Sep, [facility] [place] [facility] [address] [id number] [place] [address]- 9526 14 Sep, 2012 [facility] [place] [facility] [address] [id number] [place] [address]- 1127 13 Sep, 2012 [facility] [place] [facility] [address] [id number] [place] [address]- 5520 Sep, [facility] [place] [facility] [address] [id number] [place] [address]- [address]115 07 Sep, 2012 [facility] [place] [facility] [address] [id number] [place] [address]- [address]478 Sep, [facility] [place] [facility] [address] [id number] [place] [address]- 2191 05 Sep, 2012 [facility] [place] [facility] [address] [id number] [place] [address]- 6002 August, [facility] [place] [facility] [address] [id number] [place] [address]- 110[address] August, [facility] [address] [id number] [place] [address] August, [facility] [address] [id number] [place] [address]- 0866 August, [facility] [address] [id number] [place] [address]- [address]776 August, [facility] [address] [id number] [place] [address]- [address] August, [facility] [facility] [address] [id number] [place] [address] August, [facility] [address] [id number] [place] [address] August, [facility] [address] [id number] [place] [address] Jul, [facility] [address] [id number] [place] [address] Jul, [facility] [address] [place] [id number] Jul [facility] [address] [id number], [place] [address] Jun, [facility] [address] [id number], [place] [address] Jun, [facility] [address] [id number], [place] [address] Jun, [facility] [address] [id number] [place] [address] Jun, [facility] [address] [id number] [place] [address] Jun, [facility] [address] [id number], [place] [address] Jun, [facility] [address] [id number], [place] [address] May, [facility] [address] [id number] [place] [address] May, [facility] [address] [id number] [place] [address] May, [facility] [address] [id number] [place] [address] May, [facility] [address] [id number] [place] [address] May, [facility] [address] [id number] [place] [address] Apr, [facility] [address] [id number] [place] [address] Apr, [facility] [address] [id number] [place] [address] Apr, [facility] [address] [id number] [place] [address] Apr, [facility] [address] [id number] [place] [address] Apr, [facility] [address] [id number] [place] [address] Apr, [facility] [address] [id number] [place] [address] Mar, [facility] [address] [id number] [place] [address] 254 Mar, [facility] [address] [id number] [place] [address] Mar, [facility] [address] [id number] [place] [address] Mar, [facility] [address] [id number] [place] [address] Mar, [facility] [place] [facility] [address] [id number] [place] [address] Mar, [facility] [place] [facility] [address] [id number] [place] [address] Mar, [facility] [place] [facility] [address] [id number] [place] [address] Mar, [facility] [place] [facility] [address] [id number] [place] [address] Mar, [facility] [place] [facility] [address] [id number] [place] [address] Mar, [facility] [place] [facility] [address] [id number] [place] [address] Mar, [facility] [place] [facility] [address] [id number] [place] [address] Feb, [facility] [place] [facility] [address] [id number] [place] [address] Feb, [facility] [place] [facility] [address] [id number] [place] [address] Feb, [facility] [place] [facility] [address] [id number] [place] [address] Feb, [facility] [place] [facility] [address] [id number] [place] [address] Feb, [facility] [place] [facility] [address] [id number] [place] [address] Feb, [facility] [place] [facility] [address] [id number] [place] [address] Feb, [facility] [place] [facility] [address] [id number] [place] [address] Feb, [facility] [place] [facility] [address] [id number] [place] [address] Feb, [facility] [place] [facility] [address] [id number] [place] [address] Feb, [facility] [place] [facility] [address] [id number] [place] [address] Feb, [facility] [place] [facility] [address] [id number] [place] [address] Jan, [facility] [place] [facility] [address] [id number] [place] [address] Jan, [facility] [place] [facility] [address] [id number] [place] [address] Jan, [facility] [place] [facility] [address] [id number] [place] [address] Jan, [facility] [place] [facility] [address] [id number] [place] [address] Jan, [facility] [place] [facility] [address] [id number] [place] [address] Jan, [facility] [place] [facility] [address] [id number] [place] [address] Jan, [facility] [place] [facility] [address] [id number] [place] [address] 24 Dec, 2011 [facility] [place] [facility] [address] [id number] [place] [address] 17 Dec, 2011 [facility] [place] [facility] [address] [id number] [place] [address]- [address] 13 Dec, 2011 [facility] [place] [facility] [address] [id number], [place] [address] Dec, [facility] [place] [facility] [address] [id number] [place] [address]- [address] Nov, [facility] [place] [facility] [address] [id number] [place] [address] Nov, [facility] [place] [facility] [address] [id number] [place] [address]- [address] Nov, [facility] [place] [facility] [address] [id number] [place] [address] 15 Nov, 2011 [facility] [address] [id number] [place] [address] Nov, [facility] [place] [facility] [address] [id number] [place] [address] Nov, [facility] [address] [id number] [place] [address] 67[address] Nov, [facility] [place] [facility] [address] [id number] [place] [address] Nov, [facility] [place] [facility] [address] [id number] [place] [address]- [address] Nov, [facility] [place] [facility] [address] [id number] [place] [address] Nov, [facility] [place] [facility] [address] [id number] [place] [address] Nov, [facility] [place] [facility] [address] [id number] [place] [address]- 1279 Nov, [facility] [place] [facility] [address] [id number] [place] [address] 9600 Nov, [facility] [address] [id number] [place] [address]- [address] Oct, [facility] [place] [facility] [address] [id number] [place] [address]- [address]959 Oct, [facility] [place] [facility] [address] [id number] [place] [address]- 9312 Oct, [facility] [place] [facility] [address] [id number] [place] [address] 8134 Oct, [facility] [place] [facility] [address] [id number] [place] [address]- 5[address] Oct, [facility] [place] [facility] [address] [id number] [place] [address]- [address]80 Oct, [facility] [place] [facility] [address] [id number] [place] [address]- 9456 Oct, [facility] [place] [facility] [address] [id number] [place] [address]- 9508 Oct, [facility] [place] [facility] [address] [id number] [place] [address]- 9766 Oct, [facility] [place] [facility] [address] [id number] [place] [address]- 2148 Sep, [facility] [place] [facility] [address] [id number] [place] [address]- [address]17 Sep, [facility] [place] [facility] [address] [id number] [place] [address]- 9876 Sep, [facility] [place] [facility] [address] [id number] [place] [address]- 0121 Sep, [facility] [place] [facility] [address] [id number] [place] [address]- 8488 Sep, [facility] [place] [facility] [address] [id number] [place] [address]- 0697 Sep, [facility] [place] [facility] [address] [id number] [place] [address]- 7305 Sep, [facility] [place] [facility] [address] [id number] [place] [address]- 8158 Sep, [facility] [place] [facility] [address] [id number], [place] [address] August, [facility] [place] [facility] [address] [id number] [place] [address]- 8131 August, [facility] [place] [facility] [address] [id number] [place] [address]- 3429 August, [facility] [place] [facility] [address] [id number] [place] [address]- 7884 August, [facility] [place] [facility] [address] [id number] [address] August, [facility] [address] [id number] [address] August, [facility] [address] [id number] [address] August, [facility] [address] [id number], [place] [address] August, [facility] [address] [address] August, [facility] [id number] August, [facility] [id number] [address] August, [facility] [address] [id number] August, [facility] [address] [id number] [address] Oct, IMMUNIZATIONS No Known Immunizations SOCIAL HISTORY [...] Surgical History bladder surgery Hospitalization History [facility] for right groin pain 05/2011 Hospitalization History Via [facility] for wound on buttocks 08/2012 Hospitalization History Via [facility], hypoxia secondary to pneumonia 12/02-12/09 Hospitalization History Pneumonia, elevated CO2 on Bipap was in ICU 08/2013 Hospitalization History Hypoxia, Exacerbation COPD, Chest pain 09/05/15 Hospitalization History [place] ideations-[place] 12/28 Hospitalization History hypoxia--[facility] 02/13/2016 Hospitalization History shortness of breath at june 2016 Hospitalization History Shortness of breath at august 2016 Hospitalization History SOB, chest pain at [facility] 12/2016
--- OUTSIDE RECORDS SUMMARY | 2017-11-24 17:41 | XMS REPORT ---
Author Author JIMENA ZAINAB [facility] Address [address] [place] [address] Care Team Providers Care Rn Cardiac Rehab Name Role Phone KELSEY HESSY Unavailable PROBLEMS Type Condition ICD9-CM Code [id number] Code Onset Dates Condition Status SNOMED Code Problem Primary insomnia F51.01 Active 622584818 Problem Type 2 diabetes mellitus with hyperglycemia E11.65 Active 29443307 Problem Major depressive disorder, recurrent, unspecified F33.9 Active 849555080 Problem Acute and chronic respiratory failure with hypoxia J96.21 Active 38889952911735418 Problem Microalbuminuria R80.9 Active 632892605 Problem Dysphagia, unspecified type R13.10 Active 08757981 Problem 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 Active 239324838433 Problem Morbid obesity with alveolar hypoventilation E66.2 Active 945489300 Problem Chronic tension-type headache, intractable G44.221 Active 083759900 Problem Type 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 Active 74208138 Problem MRSA (methicillin resistant Staphylococcus aureus) A49.02 Active 550850358 Problem Recurrent cellulitis L03.90 Active 278807109 Problem Chronic diarrhea K52.9 Active 030203585 Problem Chronic nausea R11.0 Active 253249008 Problem Gastroesophageal reflux disease, esophagitis presence not specified K21.9 Active 954091561 Problem Tinnitus of both ears H93.13 Active 7804172242068 Problem Essential hypertension I10 Active 42432284 Problem Anxiety F41.9 Active 71549560 Problem Lymphedema I89.0 Active 409078068 Problem Hypertriglyceridemia E78.1 Active 054760499 Problem Meralgia paresthetica, unspecified laterality G57.10 Active 01058226 Problem Obstructive sleep apnea G47.33 Active 43301095 Problem Low back pain M54.5 Active 294633072 ALLERGIES No Information SOCIAL HISTORY Never Assessed PLAN OF CARE VITAL SIGNS MEDICATIONS Unknown Medications RESULTS No Results PROCEDURES No Known procedures IMMUNIZATIONS No Known Immunizations MEDICAL (GENERAL) HISTORY Type Description Date Medical History asthma Medical History acid reflux Medical History headache Medical History chronic pain-back and legs Medical History depression Medical History anxiety Medical History anger outbursts Medical History obesity Medical History Diabetic Surgical History abdominal surgery-to remove abscess 2007 Surgical History tonsillectomy Surgical History bladder surgery Hospitalization History [facility] for right groin pain 05/2011 Hospitalization History Via [facility] for wound on buttocks 08/2012 Hospitalization History Via [facility], hypoxia secondary to pneumonia 12/02-12/09 Hospitalization History Pneumonia, elevated CO2 on Bipap was in ICU 08/2013 Hospitalization History Hypoxia, Exacerbation COPD, Chest pain 09/05/15 [place]ization History [place] ideations-[place] 12/28 Hospitalization History hypoxia--[facility] 02/13/2016 Hospitalization History shortness of breath at june 2016 Hospitalization History Shortness of breath at august 2016
--- OUTSIDE RECORDS SUMMARY | 2017-11-24 17:41 | XMS REPORT ---
Author Author JESSIKA SALGADO [facility] Address [address] [place] [address] Care Team Providers Care Pourer Off Name Role Phone JESSIKA SALGADO Unavailable PROBLEMS Type Condition ICD9-CM Code [id number] Code Onset Dates Condition Status SNOMED Code Problem Primary insomnia F51.01 Active 923997685 Problem Type 2 diabetes mellitus with hyperglycemia E11.65 Active 04929822 Problem Major depressive disorder, recurrent, unspecified F33.9 Active 022352238 Problem Acute and chronic respiratory failure with hypoxia J96.21 Active 18090653105488705 Problem Microalbuminuria R80.9 Active 280381942 Problem Dysphagia, unspecified type R13.10 Active 16098643 Problem 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 Active 048986146655 Problem Morbid obesity with alveolar hypoventilation E66.2 Active 910536599 Problem Chronic tension-type headache, intractable G44.221 Active 010343597 Problem Type 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 Active 37665219 Problem MRSA (methicillin resistant Staphylococcus aureus) A49.02 Active 538772216 Problem Recurrent cellulitis L03.90 Active 985657549 Problem Chronic diarrhea K52.9 Active 777053831 Problem Chronic nausea R11.0 Active 651743502 Problem Gastroesophageal reflux disease, esophagitis presence not specified K21.9 Active 999277255 Problem Tinnitus of both ears H93.13 Active 6640816848804 Problem Essential hypertension I10 Active 21443858 Problem Anxiety F41.9 Active 53589912 Problem Lymphedema I89.0 Active 448733160 Problem Hypertriglyceridemia E78.1 Active 455151251 Problem Meralgia paresthetica, unspecified laterality G57.10 Active 68159679 Problem Obstructive sleep apnea G47.33 Active 97453625 Problem Low back pain M54.5 Active 803577709 ALLERGIES Substance Reaction Event Type Date Status Amitriptyline HCl Unknown Drug Allergy May, Active Hydrocodone-acetaminophen 7.5-500 Mg Tablet Violated narcotics contract Non Drug Allergy May, Active SOCIAL HISTORY Never Assessed PLAN OF CARE Activity Details Follow Up Regular appt Reason: VITAL SIGNS Height 63 in 2016-05-30 Weight 471.8 lbs 2016-05-30 Temperature 98.2 degrees Fahrenheit 2016-05-30 Heart Rate 104 bpm 2016-05-30 Respiratory Rate 24 2016-05-30 BMI 83.57 kg/m2 2016-05-30 Blood pressure systolic 146 mmHg 2016-05-30 Blood pressure diastolic 88 mmHg 2016-05-30 MEDICATIONS Medication Instructions Dosage Frequency Start Date End Date Duration Status Lancets Ultra Fine - as directed May, Active Test strips Test Strips test blood sugar 6h Oct, Active Omeprazole 40 mg Orally Once a day 1 capsule 24h 90 days Active Metformin HCl 1000 MG Orally 2 times a day 1 tablet with meals 12h 90 days Active Benzonatate 200 mg Orally Three times a day 1 capsule as needed 8h 18 Apr, 2016 Active Symbicort 160-4.5 MCG/ACT Inhalation Twice a day 2 puffs 12h Active Lantus 100 UNIT/ML Subcutaneous Twice a day 55 units 12h Jun, 30 days Active UltiCare Mini Pen [place] 31G X 6 MM USE DIRECTED 12 Active Pravastatin Sodium 40 mg Orally Once a day 1 tablet 24h 90 days Active ProAir HFA 108 (90 Base) MCG/ACT Inhalation every 4 hrs 2 puffs as needed 4h 30 days Active Lyrica 150 MG Orally 2 times a day 2 capsules 12h 90 days Active Ibuprofen 600 MG Orally 4 times a day 1 tablet as needed 6h 30 days Active Cyclobenzaprine HCl 10 MG Orally Three times a day 1 tablet 8h 90 days Active Cetirizine HCl 10 mg Orally Once a day 1 tablet 24h Apr, 90 days Active Ranitidine HCl 150 MG Orally Once a day 2 tablets at bedtime 24h 90 days Active Ondansetron 8 MG Orally every 8 hours, PRN 1 tablet on the tongue and allow to dissolve 90 days Active Bactrim DS 800-160 MG Orally Twice a day 2 tablet 12h 16 May, 2016May 10 day(s) Active NovoLog 100 UNIT/ML Subcutaneous 3 times a day 30 units 8h Jun, 30 days Active Gemfibrozil 600 MG Orally Twice a day 1 tablet 12h 90 days Active Ipratropium Baird 0.02 % Inhalation every 8 hours, PRN 2.5 ml 30 days Active Loperamide HCl 2 MG TAKE 2 CAPSULES BY MOUTH AFTER FIRST LOOSE STOOL THEN TAKE 1 CAPSULE AFTER EACH LOOSE STOOL - MAX 8 PER DAY 5 Active Montelukast Sodium 10 mg Orally Once a day 1 tablet in the evening 24h 90 days Active Lisinopril 20 MG Orally Once a day 1 tablet 24h 90 days Active Insulin Syringe 31G X 08/27 as directed 6h Jun, Active RESULTS No Results PROCEDURES No Known [...] Surgical History bladder surgery Hospitalization History Via [facility] for right groin pain 05/2011 Hospitalization History Via [facility] for wound on buttocks 08/2012 Hospitalization History Via [facility], hypoxia secondary to pneumonia 12/02-12/09 Hospitalization History Pneumonia, elevated CO2 on Bipap was in ICU 08/2013 Hospitalization History Hypoxia, Exacerbation COPD, Chest pain 09/05/15 Hospitalization History [place] ideations[place] 12/28 Hospitalization History hypoxia--[facility] 02/13/2016 Hospitalization History shortness of breath at june 2016 Hospitalization History Shortness of breath at august 2016
--- OUTSIDE RECORDS SUMMARY | 2017-11-24 17:41 | XMS REPORT ---
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 [address], [place] [address] 2546 Nov, [facility] [address] [place] [address] 52082 2546 Nov, Affective disorder 296.90 [facility] [address] [place] [address] 51725 2546 Nov, Diarrhea 787.91 [facility] [id number] [place] [address] 87146 2546 Nov, [facility] [id number] [place] [address] 48624 2546 Nov, Diarrhea 787.91 [facility] [id number] [place] [address] 56205 2546 Nov, Diarrhea 787.91 and Hyperlipidemia 272.4 [facility] [id number] [place] [address] 87039 2546 Nov, Diarrhea 787.91 [facility] [address] [place] [address] 86866 2546 Nov, Affective disorder 296.90 [facility] [address] [place] [address] 75062 2546 Nov, Affective disorder 296.90 [facility] [address], [place] [address] 2546 Nov, Affective disorder 296.90 [facility] [address], [place] [address] 2546 Nov, [facility] [id number] [place] [address] 16446 2546 Nov, [facility] [address], [place] [address] 2546 Nov, [facility] [address] [place] [address] 73516751- 0692 Nov, Episodic mood disorder 296.90 [facility] [address], [place] [address]- 5972 Nov, [facility] [address], [place] [address]- 1791 Nov, [facility] [address], [place] [address]- 8406 Nov, [facility] [address], [place] [address]- 4386 Nov, [facility] [address], [place] [address]- 2117 Nov, [facility] [address] [place] [address] 85536- 9735 Nov, Lymphedema 457.1 ; Hyperlipidemia 272.4 ; Essential hypertension, benign 401.1 and Numbness of toes 782.0 [facility] [address], [place] [address]- 5421 Nov, Episodic mood disorder 296.90 [facility] [address], [place] [address]- 8330 Oct, [facility] [address], [place] [address]- 1317 Oct, [facility] [address], [place] [address]- 5943 Oct, [facility] [address], [place] [address]- 4799 Oct, [facility] [address], [place] [address]- 8158 Oct, [facility] [address], [place] [address]- 3162 Oct, [facility] [address], [place] [address]- 5178 Oct, [facility] [address], [place] [address]- 0352 Oct, [facility] [address], [place] [address]- 5174 Oct, Episodic mood disorder 296.90 [facility] [address] [facility] [id number] [place] [address]- 9120 30 Sep, 2014 [facility] [address] [place] [address]- 7019 Sep, [facility] [address] [facility] [id number], [place] [address]- 1856 Sep, [facility] [address] [place] [address]- 6060 Sep, [facility] [address], [place] [address]- 2053 Sep, [facility] [address], [place] [address]- 8356 Sep, Episodic mood disorder 296.90 [facility] [address], [place] [address]- 8926 Sep, Unspecified episodic mood disorder 296.90 [facility] [address], [place] [address]- 2494 Sep, [facility] [address], [place] [address]- 9414 Sep, [facility] [address], [place] [address]- 4750 16 Sep, 2014 Episodic mood disorder 296.90 [facility] [address], [place] [address]- 2368 15 Sep, 2014 [facility] [id number], [place] [address]- 5951 15 Sep, 2014 [facility] [id number], [place] [address]- 2278 Sep, [facility] [address], [place] [address]- 2019 Sep, Hematemesis 578.0 and Vomiting 787.03 [facility] [address] [place] [address] 10417- 9733 Sep, Episodic mood disorder 296.90 [facility] [id number] [place] [address] 76654- 8417 Sep, [facility] [id number] [place] [address] 89836- 4475 Sep, [facility] [id number] [place] [address] 40317- 3665 Sep, Diabetes mellitus without mention of complication, type II or unspecified type, not stated as uncontrolled 250.00 and Other chronic pain 338.29 [facility] [id number] [place] [address] 19869- 9222 Sep, Episodic mood disorder 296.90 [facility] [id number] [place] [address] 72486- 3786 Sep, [facility] [id number] [place] [address] 18587- 0484 Sep, Episodic mood disorder 296.90 [facility] [address], [place] [address]- 1476 Sep, [facility] [address], [place] [address]- 7943 August, [facility] [address], [place] [address]- 5618 August, [facility] [id number] [place] [address] 81146- 3557 August, Episodic mood disorder 296.90 [facility] [address], [place] [address]- 1215 August, [facility] [id number] [place] [address] 21467- 5549 August, Unspecified episodic mood disorder 296.90 [facility] [id number] [address]- 8482 August, Vomiting 787.03 [facility] [address] [id number] [place] [address]- 8586 August, [facility] [address] [facility] [id number] [place] [address]- 4659 August, [facility] [address] [id number] [place] [address]- 9545 August, [facility] [id number] [place] [address]- 9464 August, [facility] [id number] [place] [address]- 9036 August, [facility] [id number] [place] [address]- 4728 Jul, [facility] [address] [facility] [id number], [place] [address]- 0318 Jul, [facility] [id number] [place] [address]- 8843 Jul, [facility] [id number] [address]- 9276 Jun, [facility] [id number], [place] [address]- 6666 Jun, [facility] [address] [facility] [id number], [place] [address]- 0857 Jun, [facility] [address] [facility] [id number] [place] [address]- 4056 Jun, [facility] [address] [facility] [id number] [place] [address]- 2076 Jun, [facility] [id number], [place] [address]- 5620 Jun, [facility] [place] [facility] [address] [id number] [place] [address]- 7437 Jun, [facility] [place] [facility] [address] [id number] [place] [address]- 6576 Jun, [facility] [place] [facility] [address] [id number] [place] [address]- 6571 Jun, [facility] [place] [facility] [address] [id number] [place] [address]- 2926 Jun, [facility] [place] [facility] [address] [id number] [place] [address]- 2809 Jun, [facility] [place] [facility] [address] [id number] [place] [address]- 1564 Jun, [facility] [place] [facility] [address] [id number] [place] [address]- 2895 Jun, [facility] [place] [facility] [address] [id number] [place] [address]- 5130 Jun, [facility] [place] [facility] [address] [id number] [place] [address]- 6452 Jun, [facility] [place] [facility] [address] [id number] [place] [address]- 3713 Jun, [facility] [place] [facility] [address] [id number] [place] [address]- 9401 Jun, [facility] [place] [facility] [address] [id number] [place] [address]- 3416 Jun, [facility] [place] [facility] [address] [id number] [place] [address]- 4021 Jun, [facility] [place] [facility] [address] [id number] [place] [address]- 6004 Jun, [facility] [place] [facility] [address] [id number] [place] [address]- 8979 Jun, [facility] [place] [facility] [address] [id number] [place] [address]- 4016 20 Jun, 2014 [facility] [place] [facility] [address] [id number] [place] [address]- 5174 20 Jun, 2014 [facility] [place] [facility] [address] [id number] [place] [address]- 9792 20 Jun, 2014 [facility] [place] [facility] [address] [id number] [place] [address]- 7563 20 Jun, 2014 [facility] [place] [facility] [address] [id number] [place] [address]- 7757 19 Jun, 2014 [facility] [place] [facility] [address] [id number] [place] [address]- 2565 19 Jun, 2014 [facility] [place] [facility] [address] [id number] [place] [address]- 6909 18 Jun, 2014 [facility] [place] [facility] [address] [id number] [place] [address]- 5174 18 Jun, 2014 [facility] [place] [facility] [address] [id number] [place] [address]- 7340 17 Jun, 2014 [facility] [place] [facility] [address] [id number] [place] [address]- 6454 17 Jun, 2014 [facility] [place] [facility] [address] [id number] [place] [address]- 0276 16 Jun, 2014 [facility] [place] [facility] [address] [id number] [place] [address]- 4910 16 Jun, 2014 [facility] [place] [facility] [address] [id number] [place] [address]- 4886 16 Jun, 2014 [facility] [place] [facility] [address] [id number] [place] [address]- 0325 16 Jun, 2014 [facility] [place] [facility] [address] [id number] [place] [address]- 8490 16 Jun, 2014 [facility] [place] [facility] [address] [id number] [place] [address]- 4273 16 Jun, 2014 [facility] [place] [facility] [address] [id number] [place] [address]- 8797 13 Jun, 2014 [facility] [place] [facility] [address] [id number] [place] [address]- 7784 13 Jun, 2014 [facility] [place] [facility] [address] [id number] [place] [address]- 7028 Jun, [facility] [place] [facility] [address] [id number] [place] [address]- 7881 Jun, 2014 [facility] [place] [facility] [address] [id number] [place] [address]- 7325 Jun, 2014 [facility] [place] [facility] [address] [id number] [place] [address]- 3044 Jun, 2014 [facility] [place] [facility] [address] [id number] [place] [address]- 5796 Jun, 2014 [facility] [place] [facility] [address] [id number] [place] [address]- 6474 Jun, 2014 [facility] [place] [facility] [address] [id number] [place] [address]- 8958 Jun, [facility] [place] [facility] [address] [id number] [place] [address]- 8735 Jun, 2014 [facility] [place] [facility] [address] [id number] [place] [address]- 2790 Jun, 2014 [facility] [place] [facility] [address] [id number] [place] [address]- 9541 Jun, 2014 [facility] [place] [facility] [address] [id number] [place] [address]- 2151 Jun, 2014 [facility] [place] [facility] [address] [id number] [place] [address]- 0699 Jun, 2014 [facility] [place] [facility] [address] [id number] [place] [address] Jun, 2014 [facility] [place] [facility] [address] [id number] [place] [address] Jun, [facility] [place] [facility] [address] [facility] [id number] [place] [address] Jun, [facility] [place] [facility] [address] [facility] [id number] [place] [address] Jun, [facility] [place] [facility] [address] [facility] [id number] [place] [address] Jun, [facility] [place] [facility] [address] [facility] [id number] [place] [address] Jun, [facility] [place] [facility] [address] [facility] [id number] [place] [address] May, [facility] [place] [facility] [address] [facility] [id number] [place] [address] May, 2014 [facility] [place] [facility] [address] [facility] [id number] [place] [address] May, 2014 [facility] [place] [facility] [address] [facility] [id number] [place] [address] May, 2014 [facility] [place] [facility] [address] [facility] [id number] [place] [address] May, 2014 [facility] [place] [facility] [address] [facility] [id number] [place] [address] May, 2014 [facility] [place] [facility] [address] [facility] [id number], [place] [address] May, 2014 [facility] [place] [facility] [address] [facility] [id number], [place] [address] May, 2014 [facility] [place] [facility] [address] [facility] [id number] [place] [address] May, 2014 [facility] [place] [facility] [address] [facility] [id number], [place] [address] May, 2014 [facility] [place] [facility] [address] [facility] [id number], [place] [address] 18 May, 2014 [facility] [place] [facility] [address] [id number] [place] [address] 18 May, 2014 [facility] [place] [facility] [address] [id number] [place] [address] May, 2014 [facility] [place] [facility] [address] [facility] [id number] [place] [address] May, 2014 [facility] [place] [facility] [address] [facility] [id number] [place] [address] May, 2014 [facility] [place] [facility] [address] [id number] [place] [address] May, 2014 [facility] [place] [facility] [address] [facility] [id number] [place] [address] May, 2014 [facility] [place] [facility] [address] [facility] [id number] [place] [address] May, 2014 [facility] [place] [facility] [address] [facility] [id number] [place] [address] May, 2014 [facility] [place] [facility] [address] [facility] [id number] [place] [address] May, 2014 [facility] [place] [facility] [address] [facility] [id number] [place] [address] May, 2014 [facility] [place] [facility] [address] [facility] [id number] [place] [address] May, 2014 [facility] [place] [facility] [address] [facility] [id number] [place] [address] May, 2014 [facility] [place] [facility] [address] [facility] [id number] [place] [address] May, 2014 [facility] [place] [facility] [address] [facility] [id number] [place] [address] May, 2014 [facility] [place] [facility] [address] [facility] [id number] [place] [address] May, 2014 [facility] [place] [facility] [address] [id number] [place] [address] 0[address] May, [facility] [place] [facility] [address] [id number] [place] [address] 7037 Apr, [facility] [place] [facility] [address] [id number] [place] [address] 6476 Apr, [facility] [place] [facility] [address] [id number] [place] [address] 3856 Apr, [facility] [place] [facility] [address] [id number] [place] [address] 6064 Apr, [facility] [place] [facility] [address] [id number] [place] [address] Apr, [facility] [place] [facility] [address] [id number] [place] [address] 5977 Apr, [facility] [place] [facility] [address] [id number] [place] [address]- 7064 Apr, [facility] [place] [facility] [address] [id number] [place] [address]- 2262 Apr, [facility] [place] [facility] [address] [id number] [place] [address] 7138 Apr, [facility] [place] [facility] [address] [id number] [place] [address]- 3434 Apr, [facility] [place] [facility] [address] [id number] [place] [address]- 8099 Apr, [facility] [place] [facility] [address] [id number] [place] [address]- 2139 Apr, [facility] [place] [facility] [address] [id number] [place] [address]- 2236 Apr, [facility] [place] [facility] [address] [id number] [place] [address]- 8936 Apr, [facility] [place] [facility] [address] [id number] [place] [address]- 3974 Apr, [facility] [place] [facility] [address] [id number] [place] [address]- 7557 Apr, [facility] [place] [facility] [address] [id number] [place] [address]- 4231 Apr, [facility] [place] [facility] [address] [id number] [place] [address]- 7283 Apr, [facility] [place] [facility] [address] [id number] [place] [address]- 6259 Apr, [facility] [place] [facility] [address] [id number] [place] [address]- 7489 Apr, [facility] [place] [facility] [address] [id number] [place] [address]- 6885 Mar, [facility] [place] [facility] [address] [id number] [place] [address]- 0716 Mar, [facility] [place] [facility] [address] [id number] [place] [address]- 6828 Mar, [facility] [place] [facility] [address] [id number] [place] [address]- 7217 Mar, [facility] [place] [facility] [address] [id number] [place] [address]- 9641 Mar, [facility] [place] [facility] [address] [id number] [place] [address]- 1397 Mar, [facility] [place] [facility] [address] [id number], [place] [address]- 265[address] 18 Mar, 2014 [facility] [place] [facility] [address] [id number] [place] [address]- 8970 18 Mar, 2014 [facility] [place] [facility] [address] [id number] [place] [address]- 3479 15 Mar, 2014 [facility] [place] [facility] [address] [id number] [place] [address]- 1709 15 Mar, 2014 [facility] [place] [facility] [address] [id number] [place] [address]- 4972 15 Mar, 2014 [facility] [place] [facility] [address] [id number] [place] [address]- 9838 15 Mar, 2014 [facility] [place] [facility] [address] [id number] [place] [address]- 4247 Mar, [facility] [place] [facility] [address] [id number] [place] [address]- 3762 Mar, [facility] [place] [facility] [address] [id number] [place] [address]- 1214 Mar, [facility] [place] [facility] [address] [id number] [place] [address]- 9593 Mar, [facility] [place] [facility] [address] [id number] [place] [address]- 1034 Feb, [facility] [place] [facility] [address] [id number] [place] [address]- 5234 Feb, [facility] [place] [facility] [address] [id number] [place] [address]- 9960 Feb, [facility] [place] [facility] [address] [id number] [place] [address]- 0077 Feb, [facility] [place] [facility] [address] [facility] [id number] [place] [address]- 1429 Feb, [facility] [place] [facility] [address] [id number] [place] [address]- 3789 Feb, [facility] [place] [facility] [address] [id number] [place] [address]- 3268 Feb, [facility] [place] [facility] [address] [id number] [place] [address]- 7963 Feb, [facility] [place] [facility] [address] [id number] [place] [address]- 8901 Feb, [facility] [place] [facility] [address] [id number] [place] [address]- 2876 Feb, [facility] [place] [facility] [address] [id number] [place] [address]- 8534 Feb, [facility] [place] [facility] [address] [id number] [place] [address]- 9501 Feb, [facility] [place] [facility] [address] [id number] [place] [address]- 7213 Feb, [facility] [place] [facility] [address] [id number] [place] [address]- 9198 Feb, [facility] [place] [facility] [address] [id number] [place] [address]- 8286 Feb, [facility] [place] [facility] [address] [id number] [place] [address]- 6455 Feb, [facility] [place] [facility] [address] [id number] [place] [address]- 1488 Feb, [facility] [place] [facility] [address] [id number] [place] [address]- 7629 Feb, [facility] [place] [facility] [address] [id number] [place] [address]- 4002 Feb, [facility] [place] [facility] [address] [id number] [place] [address]- 7138 Feb, [facility] [place] [facility] [address] [id number] [place] [address]- 6165 Feb, [facility] [place] [facility] [address] [id number] [place] [address]- 9028 Jan, [facility] [place] [facility] [address] [id number] [place] [address]- 0182 Jan, [facility] [place] [facility] [address] [id number] [place] [address]- 6144 Jan, [facility] [place] [facility] [address] [id number] [place] [address]- 3898 Jan, [facility] [place] [facility] [address] [id number] [place] [address]- 9550 24 Jan, 2014 [facility] [place] [facility] [address] [id number] [place] [address]- 2931 24 Jan, 2014 [facility] [place] [facility] [address] [id number] [place] [address]- 6581 Jan, [facility] [place] [facility] [address] [id number] [place] [address]- 1215 Jan, [facility] [place] [facility] [address] [id number] [place] [address]- 8834 20 Jan, 2014 [facility] [place] [facility] [address] [id number] [place] [address]- 7654 20 Jan, 2014 [facility] [place] [facility] [address] [id number] [place] [address]- 1152 17 Jan, 2014 [facility] [place] [facility] [address] [id number] [place] [address]- 5385 17 Jan, 2014 [facility] [place] [facility] [address] [id number] [place] [address]- 0945 17 Jan, 2014 [facility] [place] [facility] [address] [id number] [place] [address]- 2083 17 Jan, 2014 [facility] [place] [facility] [address] [id number] [place] [address]- 5552 15 Jan, 2014 [facility] [place] [facility] [address] [id number], [place] [address]- 4463 15 Jan, 2014 [facility] [place] [facility] [address] [id number], [place] [address]- 3984 14 Jan, 2014 [facility] [place] [facility] [address] [id number] [place] [address]- 3150 14 Jan, 2014 [facility] [place] [facility] [address] [id number] [place] [address]- 0962 13 Jan, 2014 [facility] [place] [facility] [address] [id number] [place] [address]- 4962 13 Jan, 2013 [facility] [place] [facility] [address] [id number] [place] [address]- 9890 13 Jan, 2013 [facility] [place] [facility] [address] [id number] [place] [address]- 3078 13 Jan, 2014 [facility] [place] [facility] [address] [id number] [place] [address]- 6005 10 Jan, 2014 [facility] [place] [facility] [address] [id number] [place] [address]- 0335 02 Jan, 2014 [facility] [place] [facility] [address] [id number] [place] [address]- 8322 02 Jan, 2014 [facility] [place] [facility] [address] [id number] [place] [address]- 4865 25 Dec, 2013 [facility] [place] [facility] [address] [id number] [place] [address]- 9843 25 Dec, 2013 [facility] [place] [facility] [address] [id number] [place] [address]- 6883 23 Dec, 2013 [facility] [place] [facility] [address] [id number] [place] [address]- 0845 23 Sep, 2013 [facility] [place] [facility] [address] [id number] [place] [address]- 6901 19 Dec, 2013 [facility] [place] [facility] [address] [id number] [place] [address]- 9348 19 Sep, 2013 [facility] [place] [facility] [address] [id number] [place] [address]- 2542 17 Sep, 2013 [facility] [place] [facility] [address] [id number] [place] [address]- 2541 17 Sep, 2013 [facility] [place] [facility] [address] [id number] [place] [address]- 6190 09 Sep, 2013 [facility] [place] [facility] [address] [id number] [place] [address]- 254 09 Sep, 2013 [facility] [place] [facility] [address] [id number] [place] [address]- 0893 08 Sep, 2013 [facility] [place] [facility] [address] [id number] [place] [address]- 4970 08 Dec, 2013 [facility] [place] [facility] [address] [id number] [place] [address]- 8187 Dec, 2013 [facility] [place] [facility] [address] [id number] [place] [address]- 6455 Dec, 2013 [facility] [place] [facility] [address] [id number] [place] [address]- 7597 Dec, 2013 [facility] [place] [facility] [address] [id number] [place] [address]- 0491 Dec, 2013 [facility] [place] [facility] [address] [id number] [place] [address]- 9345 Dec, 2013 [facility] [place] [facility] [address] [id number] [place] [address]- 1712 Dec, 2013 [facility] [place] [facility] [address] [id number] [place] [address]- 7316 Nov, [facility] [place] [facility] [address] [id number] [place] [address]- 4885 Nov, [facility] [place] [facility] [address] [id number] [place] [address]- 2669 Nov, [facility] [place] [facility] [address] [id number] [place] [address]- 9544 Nov, [facility] [place] [facility] [address] [id number], [place] [address]- 9869 Nov, [facility] [place] [facility] [address] [id number] [place] [address]- 6369 Nov, [facility] [place] [facility] [address] [id number] [place] [address]- 5413 Nov, [facility] [place] [facility] [address] [id number] [place] [address]- 4796 Nov, [facility] [place] [facility] [address] [id number], [place] [address]- 8823 Nov, [facility] [place] [facility] [address] [id number] [place] [address]- 6698 Nov, [facility] [place] [facility] [address] [id number] [place] [address]- 9770 Nov, [facility] [place] [facility] [address] [id number] [place] [address]- 6914 Nov, [facility] [place] [facility] [address] [id number] [place] [address]- 9032 Oct, [facility] [place] [facility] [address] [id number] [place] [address]- 9362 Oct, [facility] [place] [facility] [address] [id number] [place] [address]- 8381 Oct, [facility] [place] [facility] [address] [id number] [place] [address]- 4268 Oct, [facility] [place] [facility] [address] [id number] [place] [address]- 9920 Oct, [facility] [place] [facility] [address] [id number] [place] [address]- 7289 Oct, [facility] [place] [facility] [address] [id number] [place] [address]- 6552 Oct, [facility] [place] [facility] [address] [id number] [place] [address]- 6000 Oct, [facility] [place] [facility] [address] [id number] [place] [address]- 5189 Oct, [facility] [place] [facility] [address] [id number] [place] [address]- 8603 Oct, [facility] [place] [facility] [address] [id number] [place] [address]- 0916 Oct, [facility] [place] [facility] [address] [id number] [place] [address]- 2057 Oct, [facility] [place] [facility] [address] [id number] [place] [address]- 1848 14 Oct, 2013 [facility] [place] [facility] [address] [id number] [place] [address]- 7810 14 Oct, 2013 [facility] [place] [facility] [address] [id number] [place] [address]- 6921 13 Oct, 2013 [facility] [place] [facility] [address] [id number] [place] [address]- 8059 13 Oct, 2013 [facility] [place] [facility] [address] [id number] [place] [address]- 8155 Oct, [facility] [place] [facility] [address] [id number] [place] [address]- 1214 Sep, [facility] [place] [facility] [address] [id number] [place] [address]- 1052 27 Sep, 2013 [facility] [place] [facility] [address] [id number] [place] [address]- 8293 Sep, [facility] [place] [facility] [address] [id number] [place] [address]- 9184 20 Sep, 2013 [facility] [place] [facility] [address] [id number] [place] [address]- 4730 18 Sep, 2013 [facility] [place] [facility] [address] [id number] [place] [address]- 1170 18 Sep, 2013 [facility] [place] [facility] [address] [id number] [place] [address]- 9699 17 Sep, 2013 [facility] [place] [facility] [address] [id number] [place] [address]- 8159 17 Sep, 2013 [facility] [place] [facility] [address] [id number] [place] [address]- 2112 Sep, [facility] [place] [facility] [address] [id number] [place] [address]- 0331 Sep, [facility] [place] [facility] [address] [id number] [place] [address]- 2144 Sep, [facility] [place] [facility] [address] [id number] [place] [address]- 4996 Sep, [facility] [place] [facility] [address] [id number] [place] [address]- 9096 Sep, [facility] [place] [facility] [address] [id number] [place] [address]- 4845 Sep, [facility] [place] [facility] [address] [id number] [place] [address]- 0966 Sep, [facility] [place] [facility] [address] [id number] [place] [address]- 1850 Sep, [facility] [place] [facility] [address] [id number] [place] [address]- 5520 Sep, [facility] [place] [facility] [address] [id number] [place] [address]- 0370 Sep, [facility] [place] [facility] [address] [id number] [place] [address]- 2448 Sep, [facility] [place] [facility] [address] [id number] [place] [address]- 9170 Sep, [facility] [place] [facility] [address] [id number] [place] [address]- 0613 Sep, [facility] [place] [facility] [address] [id number], [place] [address]- 5493 Sep, [facility] [place] [facility] [address] [id number], [place] [address]- 9176 August, [facility] [place] [facility] [address] [id number] [place] [address]- 3169 August, [facility] [place] [facility] [address] [id number] [place] [address]- 2966 August, [facility] [place] [facility] [address] [id number] [place] [address]- 5819 August, [facility] [place] [facility] [address] [id number] [place] [address]- 9214 August, [facility] [place] [facility] [address] [id number] [place] [address]- 7278 August, [facility] [place] [facility] [address] [id number] [place] [address]- 9267 August, [facility] [place] [facility] [address] [id number] [place] [address]- 1620 August, [facility] [place] [facility] [address] [id number] [place] [address]- 1736 August, [facility] [place] [facility] [address] [id number] [place] [address]- 1963 August, [facility] [place] [facility] [address] [id number] [place] [address]- 3424 August, [facility] [address] [id number] [place] [address]- 1604 Jul, [facility] [place] [facility] [address] [id number] [place] [address]- 0628 Jul, [facility] [place] [facility] [address] [id number] [place] [address]- 0350 Jul, [facility] [place] [facility] [address] [id number] [place] [address]- 8399 Jul, [facility] [place] [facility] [address] [id number] [place] [address]- 0691 Jul, [facility] [place] [facility] [address] [id number] [place] [address]- 8735 Jul, [facility] [place] [facility] [address] [id number] [place] [address]- 6025 Jul, [facility] [place] [facility] [address] [id number] [place] [address]- 1817 Jul, [facility] [place] [facility] [address] [id number] [place] [address]- 8557 Jul, [facility] [place] [facility] [address] [id number] [place] [address]- 6460 18 Jul, 2013 [facility] [place] [facility] [address] [id number] [place] [address]- 3201 16 Jul, 2013 [facility] [place] [facility] [address] [id number] [place] [address]- 9554 Jul, [facility] [place] [facility] [address] [id number] [place] [address]- 6400 Jul, [facility] [place] [facility] [address] [id number] [place] [address]- 0582 Jul, [facility] [place] [facility] [address] [id number] [place] [address]- 2997 Jul, [facility] [place] [facility] [address] [id number] [place] [address]- 5614 Jul, [facility] [place] [facility] [address] [id number] [place] [address]- 7431 Jul, [facility] [place] [facility] [address] [id number] [place] [address]- 4037 Jul, [facility] [place] [facility] [address] [id number] [place] [address]- 5048 Jul, [facility] [place] [facility] [address] [id number] [place] [address]- 1867 Jul, [facility] [place] [facility] [address] [id number] [place] [address]- 7427 Jul, [facility] [place] [facility] [address] [id number] [place] [address]- 1539 Jul, [facility] [place] [facility] [address] [id number] [place] [address]- 9022 Jul, [facility] [place] [facility] [address] [id number] [place] [address]- 8631 Jun, [facility] [place] [facility] [address] [id number] [place] [address]- 2546 Jun, [facility] [place] [facility] [address] [id number] [place] [address]- 1839 Jun, [facility] [place] [facility] [address] [id number] [place] [address]- 4771 Jun, [facility] [place] [facility] [address] [id number] [place] [address]- 0277 Jun, [facility] [place] [facility] [address] [id number] [place] [address]- 2418 Jun, [facility] [place] [facility] [address] [id number] [place] [address]- 8056 Jun, [facility] [place] [facility] [address] [id number] [place] [address]- 8444 Jun, [facility] [place] [facility] [address] [id number] [place] [address]- 7617 Jun, [facility] [place] [facility] [address] [id number] [place] [address]- 3926 Jun, [facility] [place] [facility] [address] [id number] [place] [address]- 0276 Jun, [facility] [place] [facility] [address] [id number] [place] [address]- 7029 Jun, [facility] [place] [facility] [address] [id number] [place] [address]- 2658 May, [facility] [place] [facility] [address] [id number] [place] [address] May, [facility] [place] [facility] [address] [id number] [place] [address] Apr, [facility] [place] [facility] [address] [id number] [place] [address] Apr, [facility] [place] [facility] [address] [id number] [place] [address] Apr, [facility] [place] [facility] [address] [id number] [place] [address] Apr, [facility] [address] [id number] [place] [address] Apr, [facility] [place] [facility] [address] [id number] [place] [address] Apr, [facility] [address] [id number] [place] [address] Apr, [facility] [place] [facility] [address] [id number] [place] [address] Apr, [facility] [address] [id number] [place] [address] Apr, [facility] [address] [id number] [place] [address] Apr, [facility] [address] [id number] [place] [address] Apr, [facility] [address] [id number] [place] [address] Mar, [facility] [place] [facility] [address] [id number] [place] [address] Mar, [facility] [address] [id number] [place] [address] Mar, [facility] [place] [facility] [address] [id number] [place] [address] Mar, [facility] [place] [facility] [address] [id number] [place] [address] Feb, [facility] [place] [facility] [address] [id number] [place] [address] Feb, [facility] [place] [facility] [address] [id number] [place] [address] Feb, [facility] [place] [facility] [address] [id number] [place] [address] Feb, [facility] [place] [facility] [address] [id number] [place] [address] Feb, [facility] [place] [facility] [address] [id number] [place] [address] Feb, [facility] [place] [facility] [address] [id number] [place] [address] Feb, [facility] [place] [facility] [address] [id number], [place] [address] Feb, [facility] [place] [facility] [address] [id number] [place] [address] Feb, [facility] [place] [facility] [address] [id number], [place] [address] Feb, [facility] [place] [facility] [address] [id number] [place] [address] Feb, [facility] [place] [facility] [address] [id number], [place] [address] Jan, [facility] [place] [facility] [address] [id number], [place] [address] Jan, [facility] [place] [facility] [address] [id number], [place] [address] Jan, [facility] [place] [facility] [address] [id number], [place] [address] Jan, [facility] [place] [facility] [address] [id number], [place] [address]- [address] Jan, [facility] [place] [facility] [address] [id number], [place] [address]- [address] Jan, [facility] [place] [facility] [address] [id number], [place] [address] Jan, [facility] [place] [facility] [address] [id number], [place] [address] Jan, [facility] [place] [facility] [address] [id number] [place] [address] 30 Sep, 2012 [facility] [place] [facility] [address] [id number] [place] [address] 25 Sep, 2012 [facility] [place] [facility] [address] [id number] [place] [address] 2546 18 Sep, 2012 [facility] [place] [facility] [address] [id number] [place] [address] 2546 17 Sep, 2012 [facility] [place] [facility] [address] [id number] [place] [address]46 17 Sep, 2012 [facility] [place] [facility] [address] [id number] [place] [address]- [address] 16 Sep, 2012 [facility] [place] [facility] [address] [id number] [place] [address] 13 Dec, 2012 [facility] [place] [facility] [address] [id number] [place] [address] 11 Dec, 2012 [facility] [place] [facility] [address] [id number] [place] [address]- [address] 05 Dec, 2012 [facility] [place] [facility] [address] [id number] [place] [address]- [address] 04 Dec, 2012 [facility] [place] [facility] [address] [id number] [place] [address]- [address] 30 Nov, 2012 [facility] [place] [facility] [address] [id number] [place] [address]- 277[address] 29 Nov, 2012 [facility] [place] [facility] [address] [id number] [place] [address]- [address] 22 Nov, 2012 [facility] [place] [facility] [address] [id number] [place] [address]- [address] 16 Nov, 2012 [facility] [place] [facility] [address] [id number] [place] [address]- [address]99 14 Nov, 2012 [facility] [place] [facility] [address] [id number] [place] [address] 12 Nov, 2012 [facility] [place] [facility] [address] [id number] [place] [address] Nov, [facility] [place] [facility] [address] [id number] [place] [address]- [address] Oct, [facility] [place] [facility] [address] [id number] [place] [address] Oct, [facility] [place] [facility] [address] [id number] [place] [address]- [address] Oct, [facility] [place] [facility] [address] [id number] [place] [address]- [address] 17 Oct, 2012 [facility] [place] [facility] [address] [id number] [place] [address]- [address] 15 Oct, 2012 [facility] [place] [facility] [address] [id number] [place] [address] Oct, [facility] [place] [facility] [address] [id number] [place] [address] Sep, [facility] [place] [facility] [address] [id number] [place] [address] Sep, [facility] [place] [facility] [address] [id number] [place] [address] Sep, [facility] [place] [facility] [address] [id number] [place] [address] 14 Sep, 2012 [facility] [place] [facility] [address] [id number] [place] [address] 13 Sep, 2012 [facility] [place] [facility] [address] [id number] [place] [address] 10 Sep, 2012 [facility] [place] [facility] [address] [id number] [place] [address] 07 Sep, 2012 [facility] [place] [facility] [address] [id number] [place] [address] 06 Sep, 2012 [facility] [place] [facility] [address] [id number] [place] [address] Sep, [facility] [address] [id number] [place] [address] August, [facility] [address] [id number] [place] [address] August, [facility] [address] [id number] [place] [address] August, [facility] [address] [id number] [place] [address] August, [facility] [address] [id number] [place] [address] August, [facility] [address] [id number] [place] [address] August, [facility] [address] [id number] [place] [address] August, [facility] [address] [id number] [place] [address] August, [facility] [address] [id number] [place] [address] Jul, [facility] [address] [id number] [place] [address] Jul, Via [address] [id number] Jul [facility] [address] [id number], [place] [address] Jun, [facility] [address] [id number] [place] [address] 79[address] Jun, [facility] [address] [id number] [place] [address] Jun, [facility] [address] [id number] [place] [address] Jun, [facility] [address] [id number], [place] [address] Jun, [facility] [address] [id number] [place] [address] Jun, [facility] [address] [id number] [place] [address] May, [facility] [address] [id number] [place] [address] May, [facility] [address] [id number] [place] [address] May, [facility] [address] [id number] [place] [address] May, [facility] [address] [id number] [place] [address] 25[address] May, [facility] [address] [id number] [place] [address] 20[address] Apr, [facility] [address] [id number] [place] [address] Apr, [facility] [address] [id number] [place] [address] Apr, [facility] [address] [id number] [place] [address] Apr, [facility] [address] [id number] [place] [address]- [address] Apr, [facility] [address] [id number] [place] [address] 2546 Apr, [facility] [address] [id number] [place] [address] Mar, [facility] [address] [id number] [place] [address] 2546 Mar, [facility] [address] [id number] [place] [address] 3026 Mar, [facility] [place] [facility] [address] [id number] [place] [address] Mar, [facility] [place] [facility] [address] [id number] [place] [address] Mar, [facility] [place] [facility] [address] [id number] [place] [address] 9[address] 18 Mar, 2012 [facility] [place] [facility] [address] [id number] [place] [address] 1001 18 Mar, 2012 [facility] [place] [facility] [address] [id number] [place] [address] 9973 Mar, [facility] [place] [facility] [address] [id number] [place] [address]- 116[address] Mar, [facility] [place] [facility] [address] [id number] [place] [address] 68[address] Mar, [facility] [place] [facility] [address] [id number] [place] [address]- 9[address] Mar, [facility] [place] [facility] [address] [id number] [place] [address] 92[address] Feb, [facility] [place] [facility] [address] [id number] [place] [address]- 1318 28 Feb, 2012 [facility] [place] [facility] [address] [id number] [place] [address]32 Feb, [facility] [place] [facility] [address] [id number] [place] [address] Feb, [facility] [place] [facility] [address] [id number] [place] [address] Feb, [facility] [place] [facility] [address] [id number] [place] [address] 8881 16 Feb, 2012 [facility] [place] [facility] [address] [id number] [place] [address] 4131 16 Feb, 2012 [facility] [place] [facility] [address] [id number], [place] [address] Feb, [facility] [place] [facility] [address] [id number] [place] [address]504 Feb, [facility] [place] [facility] [address] [id number] [place] [address] 8891 Feb, [facility] [place] [facility] [address] [id number] [place] [address]- 2923 Feb, [facility] [place] [facility] [address] [id number] [place] [address] 8078 Jan, [facility] [place] [facility] [address] [id number] [place] [address]- 6429 Jan, [facility] [place] [facility] [address] [id number] [place] [address] Jan, [facility] [place] [facility] [address] [id number] [place] [address]- 8738 Jan, [facility] [place] [facility] [address] [id number] [place] [address]- 7632 Jan, [facility] [place] [facility] [address] [id number] [place] [address]- 5846 Jan, [facility] [place] [facility] [address] [id number] [place] [address]- 6815 Jan, [facility] [place] [facility] [address] [id number], [place] [address] 24 Dec, 2011 [facility] [place] [facility] [address] [id number], [place] [address] 17 Dec, 2011 [facility] [place] [facility] [address] [id number] [place] [address]- 0644 13 Dec, 2011 [facility] [place] [facility] [address] [id number] [place] [address]- 4187 12 Dec, 2011 [facility] [place] [facility] [address] [id number] [place] [address]- 0259 Nov, [facility] [place] [facility] [address] [id number] [place] [address]- 0375 20 Nov, 2011 [facility] [address] [id number] [place] [address]- 4098 Nov, [facility] [place] [facility] [address] [id number] [place] [address]- 0426 15 Nov, 2011 [facility] [address] [id number] [place] [address]- 0806 14 Nov, 2011 [facility] [place] [facility] [address] [id number] [place] [address]- 5770 Nov, [facility] [address] [id number] [place] [address]- 7218 Nov, [facility] [place] [facility] [address] [id number] [place] [address]- 0703 Nov, [facility] [place] [facility] [address] [id number] [place] [address]- 7378 Nov, [facility] [address] [id number] [place] [address]- 3310 Nov, [facility] [place] [facility] [address] [id number] [place] [address]- 6426 Nov, [facility] [address] [id number] [place] [address]- 6042 Nov, [facility] [place] [facility] [address] [id number] [place] [address]- 2545 Nov, [facility] [place] [facility] [address] [id number] [place] [address]- 3724 Oct, [facility] [place] [facility] [address] [id number] [place] [address]- 0081 Oct, [facility] [place] [facility] [address] [id number] [place] [address]- 3676 Oct, [facility] [place] [facility] [address] [id number] [place] [address]- 5503 Oct, [facility] [place] [facility] [address] [id number] [place] [address]- 8216 Oct, [facility] [place] [facility] [address] [id number] [place] [address]- 2062 Oct, [facility] [place] [facility] [address] [id number] [place] [address]- 5685 Oct, [facility] [place] [facility] [address] [id number] [place] [address]- 5246 Oct, [facility] [place] [facility] [address] [id number] [place] [address]- [address] Oct, [facility] [place] [facility] [address] [id number] [place] [address]- 5804 Sep, [facility] [place] [facility] [address] [id number] [place] [address]- 7690 Sep, [facility] [place] [facility] [address] [id number] [place] [address]- 0454 Sep, [facility] [place] [facility] [address] [id number] [place] [address]- 3340 Sep, [facility] [place] [facility] [address] [id number] [place] [address]- 1867 Sep, [facility] [place] [facility] [address] [id number] [place] [address]- 0081 Sep, [facility] [place] [facility] [address] [id number], [place] [address]- 3126 Sep, [facility] [place] [facility] [address] [id number] [place] [address]- 2007 Sep, [facility] [place] [facility] [address] [id number] [place] [address]- 9965 August, [facility] [place] [facility] [address] [id number] [place] [address]- 0120 August, [facility] [place] [facility] [address] [id number], [place] [address] August, [facility] [address] [id number] [address] August, [facility] [id number] [address] [address] August, [facility] [id number], [place] [address]- 6927 August, [facility] [id number], [place] [address]- 9562 August, [facility] [id number], [place] [address]- 7920 August, [facility] [id number]16 August, [facility] [id number], [place] [address]- 5115 August, [facility] [id number], [place] [address]- 3787 August, [facility] [id number], [place] [address]- [address] August, [facility] [address] [id number], [place] [address]- [address]18 Oct, IMMUNIZATIONS No Known Immunizations SOCIAL HISTORY Never Assessed REASON FOR VISIT refills PLAN OF CARE VITAL SIGNS MEDICATIONS Unknown [...] Surgical History bladder surgery Hospitalization History Via [facility] for right groin pain 05/2011 Hospitalization History Via [facility] for wound on buttocks 08/2012 Hospitalization History Via [facility], hypoxia secondary to pneumonia 12/02-12/09 Hospitalization History Pneumonia, elevated CO2 on Bipap was in ICU 08/2013 Hospitalization History Hypoxia, Exacerbation COPD, Chest pain 09/05/15 Hospitalization History [place] ide[place] 12/28 Hospitalization History hypoxia--[facility] 02/13/2016 Hospitalization History shortness of breath at june 2016 Hospitalization History Shortness of breath at august 2016 Hospitalization History SOB, chest pain at 12/2016
--- OUTSIDE RECORDS SUMMARY | 2017-11-24 17:41 | XMS REPORT ---
Author Author JIMENA ZAINAB [facility] Address [address] [place] [address] Care Team Providers Care Analysis Internship Name Role Phone ZAINAB HESS Unavailable PROBLEMS Type Condition ICD9-CM Code [id number] Code Onset Dates Condition Status SNOMED Code Problem Primary insomnia F51.01 Active 406237226 Problem Type 2 diabetes mellitus with hyperglycemia E11.65 Active 92433580 Problem Major depressive disorder, recurrent, unspecified F33.9 Active 472033571 Problem Acute and chronic respiratory failure with hypoxia J96.21 Active 80303241471983328 Problem Microalbuminuria R80.9 Active 959326700 Problem Dysphagia, unspecified type R13.10 Active 81020797 Problem 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 Active 951838362882 Problem Morbid obesity with alveolar hypoventilation E66.2 Active 382665797 Problem Chronic tension-type headache, intractable G44.221 Active 734365322 Problem Type 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 Active 00319506 Problem MRSA (methicillin resistant Staphylococcus aureus) A49.02 Active 650805641 Problem Recurrent cellulitis L03.90 Active 474159372 Problem Chronic diarrhea K52.9 Active 704551490 Problem Chronic nausea R11.0 Active 967137991 Problem Gastroesophageal reflux disease, esophagitis presence not specified K21.9 Active 831372822 Problem Tinnitus of both ears H93.13 Active 0586782764149 Problem Essential hypertension I10 Active 93066426 Problem Anxiety F41.9 Active 89852321 Problem Lymphedema I89.0 Active 138562471 Problem Hypertriglyceridemia E78.1 Active 027292469 Problem Meralgia paresthetica, unspecified laterality G57.10 Active 45061577 Problem Obstructive sleep apnea G47.33 Active 58029592 Problem Low back pain M54.5 Active 284931487 ALLERGIES No Information SOCIAL HISTORY Never Assessed [...] Surgical History bladder surgery Hospitalization History Via [facility] for right groin pain 05/2011 Hospitalization History Via [facility] for wound on buttocks 08/2012 Hospitalization History Via [facility], hypoxia secondary to pneumonia 12/02-12/09 Hospitalization History Pneumonia, elevated CO2 on Bipap was in ICU 08/2013 Hospitalization History Hypoxia, Exacerbation COPD, Chest pain 09/05/15 [place]ization History [place] 12/28 Hospitalization History hypoxia--[facility] 02/13/2016 Hospitalization History shortness of breath at june 2016 Hospitalization History Shortness of breath at august 2016 Hospitalization History SOB, chest pain at 12/2016
--- OUTSIDE RECORDS SUMMARY | 2017-11-24 17:41 | XMS REPORT ---
Author Author JIMENA ZAINAB [facility] Address [address] [place] [address] Care Team Providers Care Quality Assurance Monitor Chassis Name Role Phone KELSEY HESSY Unavailable PROBLEMS Type Condition ICD9-CM Code [id number] Code Onset Dates Condition Status SNOMED Code Problem Primary insomnia F51.01 Active 183614626 Problem Type 2 diabetes mellitus with hyperglycemia E11.65 Active 17679429 Problem Major depressive disorder, recurrent, unspecified F33.9 Active 421817095 Problem Acute and chronic respiratory failure with hypoxia J96.21 Active 42541601464836151 Problem Microalbuminuria R80.9 Active 670420066 Problem Dysphagia, unspecified type R13.10 Active 84581464 Problem 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 Active 521094099309 Problem Morbid obesity with alveolar hypoventilation E66.2 Active 628930345 Problem Chronic tension-type headache, intractable G44.221 Active 634204450 Problem Type 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 Active 16253219 Problem MRSA (methicillin resistant Staphylococcus aureus) A49.02 Active 554261087 Problem Recurrent cellulitis L03.90 Active 316994788 Problem Chronic diarrhea K52.9 Active 137374807 Problem Chronic nausea R11.0 Active 751415753 Problem Gastroesophageal reflux disease, esophagitis presence not specified K21.9 Active 248320879 Problem Tinnitus of both ears H93.13 Active 6461652471908 Problem Essential hypertension I10 Active 17961911 Problem Anxiety F41.9 Active 82698490 Problem Lymphedema I89.0 Active 902008785 Problem Hypertriglyceridemia E78.1 Active 337862942 Problem Meralgia paresthetica, unspecified laterality G57.10 Active 85726283 Problem Obstructive sleep apnea G47.33 Active 24565567 Problem Low back pain M54.5 Active 597501922 ALLERGIES No Information SOCIAL HISTORY Never Assessed [...] History bladder surgery Hospitalization History Via [facility] for right groin pain 05/2011 Hospitalization History Via [facility] for wound on buttocks 08/2012 Hospitalization History Via [facility], hypoxia secondary to pneumonia 12/02-12/09 Hospitalization History Pneumonia, elevated CO2 on Bipap was in ICU 08/2013 Hospitalization History Hypoxia, Exacerbation COPD, Chest pain 09/05/15 Hospitalization History [place] ideations[place] 12/28 Hospitalization History hypoxia--[facility] 02/13/2016 Hospitalization History shortness of breath at june 2016 Hospitalization History Shortness of breath at august 2016
--- OUTSIDE RECORDS SUMMARY | 2017-11-24 17:44 | XMS REPORT ---
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 [address] 47289- 3657 Jan, [facility] [address] 55106- 6426 Jan, Abdominal abscess K65.1 and Dental caries K02.9 [facility] [address] 71487- 3436 Jan, [facility] [id number] [place] [address] 40820- 5514 30 Dec, 2014 Diabetes with neurological manifestations, type II or unspecified type, not stated as uncontrolled 250.60 ; Essential hypertension, benign 401.1 ; Concussion 850.9 and Skin texture changes 782.8 [facility] [id number] [place] [address] 25377- 8918 Dec, [facility] [id number] [place] [address] 17794- 3574 24 Dec, 2014 [facility] [id number] [place] [address] 01021- 0971 22 Dec, 2014 [facility] [id number] [place] [address] 65434- 5130 21 Dec, 2014 [facility] [id number] [place] [address] 57594- 1446 17 Dec, 2014 Affective disorder 296.90 [facility] [id number] [place] [address] 86179- 9698 14 Dec, 2014 [facility] [id number] [place] [address] 84669- 5760 10 Dec, 2014 Affective disorder 296.90 [facility] [id number] [place] [address] [place] [address]- 4853 Dec, 2014 [facility] [address], [place] [address]- 3394 Dec, 2014 [facility] [id number] [place] [address] 46830 2546 Dec, 2014 [facility] [id number] [place] [address] 15676- 5676 Dec, 2014 [facility] [id number] [place] [address] 79651- 9513 Nov, Affective disorder 296.90 [facility] [id number] [place] [address] 51418- 2203 Nov, [facility] [id number] [place] [address] 87228- 5227 Nov, Affective disorder 296.90 [facility] [id number] [place] [address] 16855 2545 Nov, Diarrhea 787.91 [facility] [address], [place] [address] 2546 Nov, [facility] [id number] [place] [address] 89627- 2544 Nov, Diarrhea 787.91 [facility] [id number] [place] [address] 16722 2546 Nov, Diarrhea 787.91 and Hyperlipidemia 272.4 [facility] [address], [place] [address] 2546 Nov, Diarrhea 787.91 [facility] [id number] [place] [address] 13950 2546 Nov, Affective disorder 296.90 [facility] [address], [place] [address]- 2545 Nov, Affective disorder 296.90 [facility] [id number] [place] [address] 21718- 8878 Nov, Affective disorder 296.90 [facility] [address] [address]- 9197 Nov, [facility] [id number] [place] [address] 18053- 6786 Nov, [facility] [id number] [place] [address] 15368- 1483 Nov, [facility] [id number] [place] [address] 24125- 3335 Nov, Episodic mood disorder 296.90 [facility] [id number] [place] [address] 56300- 5017 Nov, [facility] [id number] [place] [address] 25573- 6625 Nov, [facility] [id number] [place] [address] 13181- 2998 Nov, [facility] [id number] [place] [address] 86787- 2139 Nov, [facility] [id number] [place] [address] 94848- 1775 Nov, [facility] [address], [place] [address]- 8401 Nov, Lymphedema 457.1 ; Hyperlipidemia 272.4 ; Essential hypertension, benign 401.1 and Numbness of toes 782.0 [facility] [address], [place] [address]- 0393 Nov, Episodic mood disorder 296.90 [facility] [address], [place] [address]- 4593 Oct, [facility] [address] [address]- 0392 Oct, [facility] [id number] [place] [address] 92322- 1565 Oct, [facility] [address] [facility] [id number] [place] [address]- 4351 15 Oct, 2014 [facility] [address] [facility] [id number] [place] [address]- 6688 14 Oct, 2014 [facility] [address] [facility] [id number] [place] [address]- 5256 Oct, 2014 [facility] [address] [facility] [id number] [place] [address]- 6883 Oct, 2014 [facility] [address] [facility] [id number] [place] [address]- 9688 Oct, 2014 [facility] [address] [place] [id number] [place] [address]- 4010 Oct, Episodic mood disorder 296.90 [facility] [address] [place] [address]- 2578 30 Sep, 2014 [facility] [id number], [place] [address]- 3540 Sep, [facility] [address] [place] [address]- 4993 Sep, [facility] [address] [place] [address]- 6706 Sep, [facility] [address] [place] [address]- 2972 Sep, [facility] [id number] [address]- 2328 Sep, Episodic mood disorder 296.90 [facility] [id number] [place] [address]- 2258 Sep, Unspecified episodic mood disorder 296.90 [facility] [address] [facility] [id number] [place] [address]- 3282 Sep, [facility] [id number] [place] [address]- 0602 Sep, [facility] [address] [address]- 2047 Sep, Episodic mood disorder 296.90 [facility] [id number] [place] [address] 04993- 9969 Sep, [facility] [id number] [place] [address] 58796- 3075 Sep, [facility] [id number] [place] [address] 75612- 4862 Sep, [facility] [address] [id number] [place] [address] 26841- 0264 Sep, Hematemesis 578.0 and Vomiting 787.03 [facility] [address] [place] [id number] [place] [address] 29587- 9976 Sep, Episodic mood disorder 296.90 [facility] [id number] [place] [address] 63433- 7033 Sep, [facility] [id number] [place] [address] 37473- 1130 Sep, [facility] [id number] [place] [address] 55943- 8537 Sep, Diabetes mellitus without mention of complication, type II or unspecified type, not stated as uncontrolled 250.00 and Other chronic pain 338.29 [facility] [id number] [place] [address] 66140- 4336 Sep, Episodic mood disorder 296.90 [facility] [id number] [address] Sep, [facility] [id number] [place] [address] 62817- 3362 Sep, Episodic mood disorder 296.90 [facility] [id number] [place] [address] 50455- 4772 Sep, [facility] [id number] [place] [address] 17758- 9607 August, [facility] [id number] [address] August, [facility] [id number] [address] August, Episodic mood disorder 296.90 [facility] [id number] [address] August, [facility] [id number] [address] August, Unspecified episodic mood disorder 296.90 [facility] [id number] [place] [address] 87245- 0674 August, Vomiting 787.03 [facility] [id number] [address] August, [facility] [id number] [address] August, [facility] [id number] [address] August, [facility] [address] [id number] [address] August, [facility] [id number] [address] August, [facility] [id number] [address] Jul, [facility] [id number] [address] Jul, [facility] [address] [id number] [address] Jul, [facility] [address] [id number] [address] Jun, [facility] [id number] [address] 30 Jun, 2014 [facility] [place] [facility] [address] [id number] [place] [address]- 9305 30 Jun, 2014 [facility] [place] [facility] [address] [id number] [place] [address]- 3826 Jun, [facility] [place] [facility] [address] [id number] [place] [address]- 97[address] Jun, [facility] [place] [facility] [address] [id number] [place] [address]- [address] Jun, [facility] [place] [facility] [address] [id number] [place] [address]- 3046 Jun, [facility] [place] [facility] [address] [id number] [place] [address]- 6[address] Jun, [facility] [place] [facility] [address] [id number] [place] [address]- 7248 Jun, [facility] [place] [facility] [address] [id number] [place] [address]- 9418 Jun, [facility] [place] [facility] [address] [id number] [place] [address]- 0955 Jun, [facility] [place] [facility] [address] [id number] [place] [address]- 6875 Jun, [facility] [place] [facility] [address] [id number] [place] [address]- 2101 Jun, [facility] [place] [facility] [address] [id number] [place] [address]- 7231 Jun, [facility] [place] [facility] [address] [id number] [place] [address]- 4954 Jun, [facility] [place] [facility] [address] [id number] [place] [address]- 6123 Jun, [facility] [place] [facility] [address] [id number] [place] [address]- 3890 Jun, [facility] [place] [facility] [address] [id number] [place] [address]- 8254 23 Jun, 2014 [facility] [place] [facility] [address] [id number] [place] [address]- 9055 23 Jun, 2014 [facility] [place] [facility] [address] [id number] [place] [address]- 4756 21 Jun, 2014 [facility] [place] [facility] [address] [id number] [place] [address]- 2936 21 Jun, 2014 [facility] [place] [facility] [address] [id number] [place] [address]- 0409 20 Jun, 2014 [facility] [place] [facility] [address] [id number] [place] [address]- 0906 20 Jun, 2014 [facility] [place] [facility] [address] [id number] [place] [address]- 0135 20 Jun, 2014 [facility] [place] [facility] [address] [id number] [place] [address]- 8342 20 Jun, 2014 [facility] [place] [facility] [address] [id number] [place] [address]- 8364 19 Jun, 2014 [facility] [place] [facility] [address] [id number] [place] [address]- 4976 19 Jun, 2014 [facility] [place] [facility] [address] [id number] [place] [address]- 3602 18 Jun, 2014 [facility] [place] [facility] [address] [id number] [place] [address]- 3818 18 Jun, 2014 [facility] [place] [facility] [address] [id number] [place] [address]- 2260 17 Jun, 2014 [facility] [place] [facility] [address] [id number] [place] [address]- 8056 17 Jun, 2014 [facility] [place] [facility] [address] [id number] [place] [address]- 4766 16 Jun, 2014 [facility] [place] [facility] [address] [id number] [place] [address]- 1668 16 Jun, 2014 [facility] [place] [facility] [address] [id number] [place] [address]- 2213 16 Jun, 2014 [facility] [place] [facility] [address] [id number] [place] [address]- 8083 16 Jun, 2014 [facility] [place] [facility] [address] [id number] [place] [address]- 3118 16 Jun, 2014 [facility] [place] [facility] [address] [id number] [place] [address]- 9278 16 Jun, 2014 [facility] [place] [facility] [address] [id number] [place] [address]- 3440 13 Jun, 2014 [facility] [place] [facility] [address] [id number] [place] [address]- 7001 13 Jun, 2014 [facility] [place] [facility] [address] [id number] [place] [address]- 7190 Jun, [facility] [place] [facility] [address] [id number] [place] [address]- 5669 Jun, [facility] [place] [facility] [address] [id number] [place] [address]- 0593 Jun, [facility] [place] [facility] [address] [id number] [place] [address]- 5310 Jun, 2014 [facility] [place] [facility] [address] [id number] [place] [address]- 3042 Jun, 2014 [facility] [place] [facility] [address] [id number] [address]- 4614 Jun, 2014 [facility] [place] [facility] [address] [id number] [place] [address]- 6104 Jun, [facility] [place] [facility] [address] [id number] [place] [address]- 8753 Jun, 2014 [facility] [place] [facility] [address] [id number] [place] [address]- 2296 Jun, 2014 [facility] [place] [facility] [address] [id number] [place] [address]- 9646 05 Jun, 2014 [facility] [place] [facility] [address] [id number] [place] [address]- 2000 Jun, 2014 [facility] [place] [facility] [address] [id number] [place] [address] Jun, [facility] [place] [facility] [address] [facility] [id number] [place] [address]- 3657 Jun, 2014 [facility] [place] [facility] [address] [id number] [place] [address]- 7795 Jun, 2014 [facility] [place] [facility] [address] [id number] [place] [address]- 3830 Jun, [facility] [place] [facility] [address] [facility] [id number] [place] [address]- 5986 Jun, [facility] [place] [facility] [address] [facility] [id number] [place] [address]- 7157 Jun, 2014 [facility] [place] [facility] [address] [facility] [id number] [place] [address]- 6626 Jun, [facility] [place] [facility] [address] [facility] [id number] [place] [address]- 3310 May, 2014 [facility] [place] [facility] [address] [facility] [id number] [place] [address]- 4063 May, 2014 [facility] [place] [facility] [address] [facility] [id number] [place] [address]- 8531 May, 2014 [facility] [place] [facility] [address] [facility] [id number] [place] [address]- 3412 May, 2014 [facility] [place] [facility] [address] [facility] [id number] [place] [address]- 3995 May, 2014 [facility] [place] [facility] [address] [facility] [id number] [place] [address]- 3155 May, 2014 [facility] [place] [facility] [address] [facility] [id number] [place] [address]- 3526 May, [facility] [place] [facility] [address] [id number] [place] [address]- 4098 May, 2014 [facility] [place] [facility] [address] [facility] [id number] [place] [address]- 1364 May, 2014 [facility] [place] [facility] [address] [facility] [id number] [place] [address]- 6720 May, 2014 [facility] [place] [facility] [address] [facility] [id number] [place] [address]- 2554 18 May, 2014 [facility] [place] [facility] [address] [facility] [id number] [place] [address]- 8062 18 May, 2014 [facility] [place] [facility] [address] [facility] [id number] [place] [address]- 1948 13 May, 2014 [facility] [place] [facility] [address] [facility] [id number] [place] [address]- 8222 13 May, 2014 [facility] [place] [facility] [address] [facility] [id number] [place] [address]- 1808 May, 2014 [facility] [place] [facility] [address] [facility] [id number] [place] [address]- 7980 May, 2014 [facility] [place] [facility] [address] [facility] [id number] [place] [address]- 2017 May, 2014 [facility] [place] [facility] [address] [facility] [id number] [place] [address]- 7184 May, 2014 [facility] [place] [facility] [address] [facility] [id number] [address]- 2540 May, 2014 [facility] [place] [facility] [address] [facility] [id number] [place] [address]- 0754 May, 2014 [facility] [place] [facility] [address] [facility] [id number] [address]- 0359 May, 2014 [facility] [place] [facility] [address] [facility] [id number] [address]- 6415 May, 2014 [facility] [place] [facility] [address] [id number] [place] [address]- 1128 May, [facility] [place] [facility] [address] [id number] [place] [address]- 6615 May, [facility] [place] [facility] [address] [id number] [place] [address]- 3794 May, [facility] [place] [facility] [address] [id number] [place] [address]- 6338 May, [facility] [place] [facility] [address] [id number] [place] [address]- 6798 May, [facility] [place] [facility] [address] [id number] [place] [address]- 4517 Apr, [facility] [place] [facility] [address] [id number] [place] [address]- 4876 Apr, [facility] [place] [facility] [address] [id number] [place] [address]- 3526 Apr, [facility] [place] [facility] [address] [id number] [place] [address]- 7617 Apr, [facility] [place] [facility] [address] [id number] [place] [address]- 0837 Apr, [facility] [place] [facility] [address] [id number] [place] [address]- 5409 Apr, [facility] [place] [facility] [address] [id number] [address]- 2541 Apr, [facility] [place] [facility] [address] [id number] [place] [address]- 6152 Apr, [facility] [place] [facility] [address] [id number] [address]- 3919 Apr, [facility] [place] [facility] [address] [id number] [place] [address]- 9065 Apr, [facility] [place] [facility] [address] [id number] [place] [address]- 6750 Apr, [facility] [address] [id number] [place] [address]- 1024 Apr, [facility] [place] [facility] [address] [id number] [place] [address]- 2098 Apr, [facility] [place] [facility] [address] [id number] [place] [address]- 1407 Apr, [facility] [place] [facility] [address] [id number] [place] [address]- 8753 Apr, [facility] [place] [facility] [address] [id number] [place] [address]- 0310 Apr, [facility] [place] [facility] [address] [id number] [place] [address]- 0215 Apr, [facility] [place] [facility] [address] [id number] [place] [address]- 8979 Apr, [facility] [place] [facility] [address] [id number] [place] [address]- 5506 Apr, [facility] [place] [facility] [address] [id number] [place] [address]- 4948 Apr, [facility] [place] [facility] [address] [id number] [place] [address]- 9821 Mar, [facility] [place] [facility] [address] [id number] [place] [address]- 6465 Mar, [facility] [place] [facility] [address] [id number] [place] [address]- 4655 Mar, [facility] [place] [facility] [address] [id number] [place] [address]- 9284 Mar, [facility] [place] [facility] [address] [id number] [place] [address]- 7550 Mar, [facility] [place] [facility] [address] [id number] [place] [address]- 3231 Mar, [facility] [place] [facility] [address] [id number] [place] [address]- 2370 18 Mar, 2014 [facility] [place] [facility] [address] [id number] [place] [address]- 2516 18 Mar, 2014 [facility] [place] [facility] [address] [id number] [place] [address]- 8876 15 Mar, 2014 [facility] [place] [facility] [address] [id number] [place] [address]- 0746 15 Mar, 2014 [facility] [place] [facility] [address] [id number] [place] [address]- 9380 15 Mar, 2014 [facility] [place] [facility] [address] [id number] [place] [address]- 7147 Mar, [facility] [place] [facility] [address] [id number] [place] [address]- 6185 Mar, [facility] [place] [facility] [address] [id number] [place] [address]- 9202 Mar, [facility] [place] [facility] [address] [id number] [place] [address]- 6557 Mar, [facility] [place] [facility] [address] [id number] [place] [address]- 5765 Mar, [facility] [place] [facility] [address] [id number] [place] [address]- 7314 Feb, [facility] [place] [facility] [address] [id number] [place] [address]- 7460 Feb, [facility] [place] [facility] [address] [id number] [place] [address]- 7506 Feb, [facility] [place] [facility] [address] [id number] [place] [address]- 3515 Feb, [facility] [place] [facility] [address] [id number] [place] [address]- 7258 Feb, [facility] [place] [facility] [address] [id number] [place] [address]- 6838 19 Feb, 2014 [facility] [place] [facility] [address] [id number] [place] [address]- 2592 19 Feb, 2014 [facility] [place] [facility] [address] [id number] [place] [address]- 5246 18 Feb, 2014 [facility] [place] [facility] [address] [id number] [place] [address]- 9271 18 Feb, 2014 [facility] [place] [facility] [address] [id number] [place] [address]- 0487 17 Feb, 2014 [facility] [place] [facility] [address] [id number] [place] [address]- 3567 17 Feb, 2014 [facility] [place] [facility] [address] [id number] [place] [address]- 7605 17 Feb, 2014 [facility] [place] [facility] [address] [id number] [place] [address]- 2500 17 Feb, 2014 [facility] [place] [facility] [address] [id number] [place] [address]- 1595 14 Feb, 2014 [facility] [place] [facility] [address] [id number] [place] [address]- 3787 14 Feb, 2014 [facility] [place] [facility] [address] [id number] [place] [address]- 9382 14 Feb, 2014 [facility] [place] [facility] [address] [id number], [place] [address]- 7995 14 Feb, 2014 [facility] [place] [facility] [address] [id number], [place] [address]- 7662 10 Feb, 2014 [facility] [place] [facility] [address] [id number] [place] [address]- 7468 10 Feb, 2014 [facility] [place] [facility] [address] [id number], [place] [address]- 2338 Feb, [facility] [place] [facility] [address] [id number], [place] [address]- 1253 Feb, [facility] [place] [facility] [address] [id number] [place] [address]- 5373 30 Jan, 2013 [facility] [place] [facility] [address] [id number] [place] [address]- 1815 30 Jan, 2013 [facility] [place] [facility] [address] [id number] [place] [address]- 8510 30 Jan, 2013 [facility] [place] [facility] [address] [id number] [place] [address]- 3683 30 Jan, 2013 [facility] [place] [facility] [address] [id number] [place] [address]- 1253 Jan, 2013 [facility] [place] [facility] [address] [id number] [place] [address]- 2058 Jan, [facility] [place] [facility] [address] [id number] [place] [address]- 3061 Jan, [facility] [place] [facility] [address] [id number] [place] [address]- 5064 Jan, [facility] [place] [facility] [address] [id number] [place] [address]- 7400 Jan, [facility] [place] [facility] [address] [id number] [place] [address]- 6593 Jan, 2013 [facility] [place] [facility] [address] [id number] [place] [address]- 4484 Jan, 2013 [facility] [place] [facility] [address] [id number] [place] [address]- 7893 Jan, 2013 [facility] [place] [facility] [address] [id number] [place] [address]- 0208 Jan, [facility] [place] [facility] [address] [id number] [place] [address]- 2182 17 Jan, 2013 [facility] [place] [facility] [address] [id number] [place] [address]- 8317 15 Jan, 2014 [facility] [place] [facility] [address] [id number] [place] [address]- 8853 15 Jan, 2014 [facility] [place] [facility] [address] [id number] [place] [address]- 3966 14 Jan, 2014 [facility] [place] [facility] [address] [id number] [place] [address]- 0990 14 Jan, 2014 [facility] [place] [facility] [address] [id number] [place] [address]- 5163 13 Jan, 2014 [facility] [place] [facility] [address] [id number] [place] [address]- 6113 Jan, [facility] [place] [facility] [address] [id number] [place] [address]- 9387 Jan, [facility] [place] [facility] [address] [id number] [place] [address]- 4235 Jan, [facility] [place] [facility] [address] [id number] [place] [address]- 4188 10 Jan, 2014 [facility] [place] [facility] [address] [id number] [place] [address]- 8287 Jan, [facility] [place] [facility] [address] [id number] [place] [address]- 5061 Jan, [facility] [place] [facility] [address] [id number] [place] [address]- 6564 25 Dec, 2013 [facility] [place] [facility] [address] [id number], [place] [address]- 5744 25 Dec, 2013 [facility] [place] [facility] [address] [id number], [place] [address]- 7297 23 Dec, 2013 [facility] [place] [facility] [address] [id number] [place] [address]- 4785 23 Dec, 2013 [facility] [place] [facility] [address] [id number] [place] [address]- 0471 19 Dec, 2013 [facility] [place] [facility] [address] [id number], [place] [address]- 1388 19 Dec, 2013 [facility] [place] [facility] [address] [id number], [place] [address]- 0391 17 Dec, 2013 [facility] [place] [facility] [address] [id number] [place] [address] 2546 17 Dec, 2013 [facility] [place] [facility] [address] [id number] [place] [address]- 7686 Dec, 2013 [facility] [place] [facility] [address] [id number] [place] [address]- 9317 Dec, 2013 [facility] [place] [facility] [address] [id number] [place] [address]- 8762 Dec, 2013 [facility] [place] [facility] [address] [id number] [place] [address]- 6298 Dec, 2013 [facility] [place] [facility] [address] [id number] [place] [address]- 9824 Dec, 2013 [facility] [place] [facility] [address] [id number] [place] [address]- 0118 Dec, 2013 [facility] [place] [facility] [address] [id number] [place] [address]- 2576 Dec, 2013 [facility] [place] [facility] [address] [id number] [place] [address]- 9170 Dec, 2013 [facility] [place] [facility] [address] [id number] [place] [address]- 6741 Dec, 2013 [facility] [place] [facility] [address] [id number] [place] [address]- 0187 Dec, 2013 [facility] [place] [facility] [address] [id number] [place] [address]- 9800 Nov, [facility] [place] [facility] [address] [id number] [place] [address]- 1867 Nov, [facility] [place] [facility] [address] [id number] [place] [address]- 4691 Nov, [facility] [place] [facility] [address] [id number] [place] [address]- 6474 Nov, [facility] [place] [facility] [address] [id number] [place] [address]- 1535 Nov, 2013 [facility] [place] [facility] [address] [id number] [place] [address] Nov, [facility] [place] [facility] [address] [id number] [place] [address] Nov, [facility] [place] [facility] [address] [id number] [place] [address] Nov, [facility] [place] [facility] [address] [id number] [place] [address] Nov, [facility] [place] [facility] [address] [id number] [place] [address] Nov, [facility] [place] [facility] [address] [id number] [place] [address] Nov, [facility] [place] [facility] [address] [id number] [place] [address] Nov, [facility] [place] [facility] [address] [id number] [place] [address] Oct, [facility] [place] [facility] [address] [id number] [place] [address] Oct, [facility] [place] [facility] [address] [id number] [place] [address] Oct, [facility] [place] [facility] [address] [id number] [place] [address] Oct, [facility] [place] [facility] [address] [id number] [place] [address] Oct, [facility] [place] [facility] [address] [id number] [place] [address] Oct, [facility] [place] [facility] [address] [id number] [place] [address] Oct, [facility] [place] [facility] [address] [id number] [place] [address] Oct, [facility] [place] [facility] [address] [id number] [place] [address] Oct, [facility] [place] [facility] [address] [id number] [place] [address]- [address] 22 Oct, 2013 [facility] [place] [facility] [address] [id number] [place] [address] 16 Oct, 2013 [facility] [place] [facility] [address] [id number] [place] [address] 16 Oct, 2013 [facility] [place] [facility] [address] [id number] [place] [address] Oct, [facility] [place] [facility] [address] [id number] [place] [address] 14 Oct, 2013 [facility] [place] [facility] [address] [id number] [place] [address]162 Oct, [facility] [place] [facility] [address] [id number] [place] [address]36 Oct, [facility] [place] [facility] [address] [id number] [place] [address] Oct, [facility] [place] [facility] [address] [id number] [place] [address] Sep, [facility] [place] [facility] [address] [id number] [place] [address] Sep, [facility] [place] [facility] [address] [id number] [place] [address]139 Sep, [facility] [place] [facility] [address] [id number] [place] [address] Sep, [facility] [place] [facility] [address] [id number] [place] [address]- [address] Sep, [facility] [place] [facility] [address] [id number] [place] [address] Sep, [facility] [place] [facility] [address] [id number] [place] [address] 17 Sep, 2013 [facility] [place] [facility] [address] [id number] [place] [address] 17 Sep, 2013 [facility] [place] [facility] [address] [id number] [place] [address]- [address] Sep, [facility] [place] [facility] [address] [id number] [place] [address] Sep, [facility] [place] [facility] [address] [id number] [place] [address] Sep, [facility] [place] [facility] [address] [id number] [place] [address] Sep, [facility] [place] [facility] [address] [id number] [place] [address] Sep, [facility] [place] [facility] [address] [id number] [place] [address] 112[address] Sep, [facility] [place] [facility] [address] [id number] [place] [address]- [address] Sep, [facility] [place] [facility] [address] [id number] [place] [address] 84[address] Sep, [facility] [place] [facility] [address] [facility] [id number] [place] [address] Sep, [facility] [place] [facility] [address] [id number] [place] [address] Sep, [facility] [place] [facility] [address] [id number] [place] [address] Sep, [facility] [place] [facility] [address] [id number] [place] [address]- [address] Sep, [facility] [place] [facility] [address] [id number] [place] [address]- 7044 Sep, [facility] [place] [facility] [address] [id number] [place] [address] Sep, [facility] [place] [facility] [address] [id number] [place] [address] August, [facility] [place] [facility] [address] [id number] [place] [address] August, [facility] [place] [facility] [address] [id number] [place] [address] August, [facility] [place] [facility] [address] [id number] [place] [address]- 6686 August, [facility] [place] [facility] [address] [id number] [place] [address] August, [facility] [place] [facility] [address] [id number] [place] [address] August, [facility] [place] [facility] [address] [id number] [place] [address] August, [facility] [place] [facility] [address] [id number] [place] [address]37 August, [facility] [place] [facility] [address] [id number] [place] [address] August, [facility] [place] [facility] [address] [id number] [place] [address] 1558 August, [facility] [place] [facility] [address] [id number] [place] [address]- [address]677 August, [facility] [place] [facility] [address] [id number] [place] [address]- [address] Jul, [facility] [place] [facility] [address] [id number] [place] [address] Jul, [facility] [place] [facility] [address] [id number] [place] [address]- [address] Jul, [facility] [place] [facility] [address] [id number] [place] [address]- [address]90 Jul, [facility] [place] [facility] [address] [id number] [place] [address] Jul, [facility] [place] [facility] [address] [id number] [place] [address] 23 Jul, 2013 [facility] [place] [facility] [address] [id number] [place] [address] 65[address] Jul, [facility] [place] [facility] [address] [id number] [place] [address] 45[address] Jul, [facility] [place] [facility] [address] [id number] [place] [address] 4938 18 Jul, 2013 [facility] [place] [facility] [address] [id number] [place] [address]- 9253 18 Jul, 2013 [facility] [place] [facility] [address] [id number] [place] [address]- 2586 16 Jul, 2013 [facility] [place] [facility] [address] [id number] [place] [address] 1663 Jul, [facility] [place] [facility] [address] [id number] [place] [address]- 9708 14 Jul, 2013 [facility] [place] [facility] [address] [id number] [place] [address]- 2562 Jul, [facility] [place] [facility] [address] [id number] [place] [address]- 0185 Jul, [facility] [place] [facility] [address] [id number] [place] [address]- 7107 10 Jul, 2013 [facility] [place] [facility] [address] [id number] [place] [address]- 3037 10 Jul, 2013 [facility] [place] [facility] [address] [id number] [place] [address]- [address] 05 Jul, 2013 [facility] [place] [facility] [address] [id number] [place] [address]- 0053 05 Jul, 2013 [facility] [place] [facility] [address] [id number] [place] [address]- 0078 Jul, [facility] [place] [facility] [address] [id number] [place] [address]- 0879 Jul, [facility] [place] [facility] [address] [id number] [place] [address]- 4021 Jul, [facility] [place] [facility] [address] [id number] [place] [address] Jul, [facility] [place] [facility] [address] [id number] [place] [address]- 9716 Jun, [facility] [place] [facility] [address] [id number] [place] [address]- 7667 Jun, [facility] [place] [facility] [address] [id number] [place] [address]- 1818 Jun, [facility] [place] [facility] [address] [id number] [place] [address] 9281 Jun, [facility] [place] [facility] [address] [id number] [place] [address]- 5986 Jun, [facility] [place] [facility] [address] [id number] [place] [address]- 0825 Jun, [facility] [place] [facility] [address] [id number] [place] [address]- 4173 Jun, [facility] [place] [facility] [address] [id number] [place] [address] 7015 Jun, [facility] [place] [facility] [address] [id number] [place] [address]- 5289 Jun, [facility] [place] [facility] [address] [id number] [place] [address]- 6834 Jun, [facility] [place] [facility] [address] [id number] [place] [address]- 9785 Jun, [facility] [place] [facility] [address] [id number] [place] [address]- 8697 Jun, [facility] [place] [facility] [address] [id number] [place] [address]- 2824 May, [facility] [place] [facility] [address] [id number] [place] [address]- 8269 May, [facility] [place] [facility] [address] [id number] [place] [address]- 0255 Apr, [facility] [place] [facility] [address] [id number] [place] [address]- 1170 Apr, [facility] [place] [facility] [address] [id number] [place] [address]- 3335 Apr, [facility] [place] [facility] [address] [id number] [place] [address]- 7527 Apr, [facility] [place] [facility] [address] [id number] [place] [address]- 9363 Apr, [facility] [place] [facility] [address] [id number] [place] [address]- 0678 Apr, [facility] [place] [facility] [address] [id number] [place] [address]- 9686 Apr, [facility] [place] [facility] [address] [id number] [place] [address]- 9021 Apr, [facility] [place] [facility] [address] [id number] [place] [address]- 9692 Apr, [facility] [place] [facility] [address] [id number] [address] 20[address] Apr, [facility] [place] [facility] [address] [id number] [address] 6[address] Apr, [facility] [place] [facility] [address] [id number] [place] [address] 1952 Mar, [facility] [place] [facility] [address] [id number] [place] [address]- 8256 Mar, [facility] [place] [facility] [address] [id number] [place] [address]- 0017 Mar, [facility] [place] [facility] [address] [id number] [address] 0972 Mar, [facility] [place] [facility] [address] [id number] [place] [address]- 6542 Feb, [facility] [place] [facility] [address] [id number], [place] [address] 0[address] Feb, [facility] [place] [facility] [address] [facility] [id number], [place] [address]- 2[address] Feb, [facility] [place] [facility] [address] [id number] [address]- 3371 Feb, [facility] [place] [facility] [address] [facility] [id number][place] [address]- 9054 Feb, [facility] [place] [facility] [address] [facility] [id number][place] [address]- 8695 Feb, [facility] [address] [facility] [id number] [address]- 4377 Feb, [facility] [place] [facility] [address] [id number], [place] [address] 6766 Feb, [facility] [place] [facility] [address] [facility] [id number] [address]- 1749 Feb, [facility] [place] [facility] [address] [facility] [id number][place] [address]- 0030 Feb, [facility] [place] [facility] [address] [facility] [id number] [address]- 8177 Feb, [facility] [place] [facility] [address] [id number] [address]- 8448 Jan, [facility] [place] [facility] [address] [id number][place] [address] 6041 Jan, [facility] [place] [facility] [address] [facility] [id number], [place] [address]- 7693 Jan, [facility] [place] [facility] [address] [facility] [id number][place] [address]- 4471 Jan, [facility] [place] [facility] [address] [id number] [place] [address]- 4369 10 Jan, 2012 [facility] [place] [facility] [address] [id number] [place] [address]- 2440 10 Jan, 2012 [facility] [place] [facility] [address] [id number] [place] [address] 2546 03 Jan, 2013 [facility] [place] [facility] [address] [id number] [place] [address]- 9821 02 Jan, 2013 [facility] [place] [facility] [address] [id number] [place] [address]- 4437 30 Dec, 2012 [facility] [place] [facility] [address] [id number] [place] [address]- 0330 25 Dec, 2012 [facility] [place] [facility] [address] [id number] [place] [address]- 8673 18 Dec, 2012 [facility] [place] [facility] [address] [id number] [place] [address]- 1937 17 Dec, 2012 [facility] [place] [facility] [address] [id number] [place] [address]- 1377 17 Dec, 2012 [facility] [place] [facility] [address] [id number] [place] [address]- 6791 16 Dec, 2012 [facility] [place] [facility] [address] [id number] [place] [address]- 2541 13 Dec, 2012 [facility] [place] [facility] [address] [id number] [place] [address]- 2248 11 Dec, 2012 [facility] [place] [facility] [address] [id number] [place] [address] 2549 05 Dec, 2012 [facility] [place] [facility] [address] [id number] [place] [address]- 2542 04 Dec, 2012 [facility] [place] [facility] [address] [id number] [place] [address]- 2545 30 Nov, 2012 [facility] [place] [facility] [address] [id number] [place] [address]- 3644 Nov, [facility] [place] [facility] [address] [id number] [place] [address]- 0400 Nov, [facility] [place] [facility] [address] [id number] [place] [address]- 1932 16 Nov, 2012 [facility] [place] [facility] [address] [id number] [place] [address]- 7131 Nov, [facility] [place] [facility] [address] [id number] [place] [address]- 7476 Nov, [facility] [place] [facility] [address] [id number] [place] [address]- 6287 Nov, [facility] [place] [facility] [address] [id number] [place] [address]- 8178 Oct, [facility] [place] [facility] [address] [id number] [place] [address]- 9706 Oct, [facility] [place] [facility] [address] [id number] [place] [address]- 5178 Oct, [facility] [place] [facility] [address] [id number] [place] [address]- 4782 Oct, [facility] [place] [facility] [address] [id number] [place] [address]- 8253 Oct, [facility] [place] [facility] [address] [id number] [place] [address]- 2867 Oct, [facility] [place] [facility] [address] [id number] [place] [address]- 6994 Sep, [facility] [place] [facility] [address] [id number] [place] [address]- 8564 Sep, [facility] [place] [facility] [address] [id number] [place] [address]- 0690 27 Sep, 2012 [facility] [place] [facility] [address] [id number] [place] [address]- 8587 14 Sep, 2012 [facility] [place] [facility] [address] [id number] [place] [address]- 8938 13 Sep, 2012 [facility] [address] [id number] [place] [address]- 0954 10 Sep, 2012 [facility] [address] [id number] [place] [address]- 2240 07 Sep, 2012 [facility] [address] [id number] [place] [address]- 7076 Sep, [facility] [address] [id number] [place] [address]- 9608 Sep, [facility] [address] [id number] [place] [address]- 2264 August, [facility] [address] [id number] [place] [address]- 6520 August, [facility] [address] [id number] [place] [address]- 8642 August, [facility] [address] [id number] [place] [address]- 3524 August, [facility] [address] [id number] [place] [address]- 2465 August, [facility] [address] [id number] [place] [address]- 8560 August, [facility] [address] [id number] [place] [address]- 5678 August, [facility] [address] [id number] [place] [address]- 7504 August, [facility] [address] [id number] [place] [address]- 4836 Jul, [facility] [address] [id number] [place] [address]- 6217 Jul, [address] [id number] Jul [facility] [address] [id number] [place] [address]- 5253 Jun, [facility] [address] [id number] [place] [address]- 7757 Jun, [facility] [place] [facility] [address] [id number] [place] [address]- 8296 Jun, [facility] [address] [id number] [place] [address]- 7180 Jun, [facility] [place] [facility] [address] [id number] [place] [address]- 9943 Jun, [facility] [address] [id number] [place] [address]- 3236 Jun, [facility] [place] [facility] [address] [id number] [place] [address]- 0291 May, [facility] [place] [facility] [address] [id number] [place] [address]- 5669 May, [facility] [address] [id number] [place] [address]- 4139 May, [facility] [address] [id number] [place] [address]- 6626 May, [facility] [address] [id number] [place] [address]- 4662 May, [facility] [address] [id number] [place] [address]- 8441 Apr, [facility] [place] [facility] [address] [id number] [place] [address]- 7304 Apr, [facility] [place] [facility] [address] [id number] [place] [address]- 0243 Apr, [facility] [place] [facility] [address] [id number] [place] [address] Apr, [facility] [place] [facility] [address] [id number] [place] [address]- 4241 Apr, [facility] [address] [id number] [place] [address]- 3961 Apr, [facility] [place] [facility] [address] [id number] [place] [address]- 7086 Mar, [facility] [place] [facility] [address] [id number] [place] [address]- 9406 Mar, [facility] [place] [facility] [address] [id number] [place] [address]- 6949 Mar, [facility] [place] [facility] [address] [id number] [place] [address]- 3752 Mar, [facility] [place] [facility] [address] [id number] [place] [address]- 9502 Mar, [facility] [place] [facility] [address] [id number] [place] [address]- 2825 Mar, [facility] [place] [facility] [address] [id number] [place] [address]- 2971 18 Mar, 2012 [facility] [place] [facility] [address] [id number] [place] [address]- 2744 Mar, [facility] [place] [facility] [address] [id number] [place] [address]- 4244 Mar, [facility] [place] [facility] [address] [id number] [place] [address]- 7786 Mar, [facility] [place] [facility] [address] [id number] [address]- 7126 05 Mar, 2012 [facility] [place] [facility] [address] [id number] [place] [address]- 2886 Feb, [facility] [place] [facility] [address] [id number] [place] [address]- 3276 Feb, [facility] [place] [facility] [address] [id number] [place] [address]- 9116 Feb, [facility] [place] [facility] [address] [id number] [place] [address]- 2483 Feb, [facility] [place] [facility] [address] [id number] [place] [address]- 6102 Feb, [facility] [place] [facility] [address] [id number] [place] [address]- 4726 Feb, [facility] [place] [facility] [address] [id number] [place] [address]- 0676 Feb, [facility] [place] [facility] [address] [id number] [place] [address]- 6343 Feb, [facility] [place] [facility] [address] [id number] [place] [address]- 2095 Feb, [facility] [place] [facility] [address] [id number] [place] [address]- 9488 Feb, [facility] [place] [facility] [address] [id number] [place] [address]- 1528 Feb, [facility] [place] [facility] [address] [id number] [place] [address]- 0935 Jan, [facility] [place] [facility] [address] [id number] [place] [address]- 6407 Jan, [facility] [place] [facility] [address] [facility] [id number] [place] [address]- 4196 Jan, [facility] [place] [facility] [address] [id number] [place] [address]- 5930 Jan, [facility] [place] [facility] [address] [id number], [place] [address]- 6573 Jan, [facility] [place] [facility] [address] [id number] [place] [address]- 3088 Jan, [facility] [place] [facility] [address] [facility] [id number] [place] [address]- 0145 Jan, [facility] [place] [facility] [address] [id number] [place] [address]- 8930 24 Dec, 2011 [facility] [place] [facility] [address] [id number] [place] [address]- 6542 17 Dec, 2011 [facility] [place] [facility] [address] [id number] [place] [address]- 6019 13 Dec, 2011 [facility] [place] [facility] [address] [id number] [place] [address]- 1184 12 Dec, 2011 [facility] [place] [facility] [address] [id number] [place] [address]- 4495 23 Nov, 2011 [facility] [place] [facility] [address] [id number] [place] [address]- 9900 Nov, [facility] [place] [facility] [address] [id number] [place] [address]- 4316 Nov, [facility] [place] [facility] [address] [id number] [place] [address]- 6233 15 Nov, 2011 [facility] [place] [facility] [address] [id number] [place] [address]- 9129 14 Nov, 2011 [facility] [place] [facility] [address] [id number] [place] [address]- 9206 Nov, [facility] [place] [facility] [address] [id number] [place] [address]- 9906 Nov, [facility] [place] [facility] [address] [id number] [place] [address]- 7958 Nov, [facility] [place] [facility] [address] [id number] [place] [address]- 5523 Nov, [facility] [place] [facility] [address] [id number] [place] [address]- 4786 Nov, [facility] [place] [facility] [address] [id number] [place] [address]- 4594 Nov, [facility] [place] [facility] [address] [id number] [place] [address]- 4915 Nov, [facility] [place] [facility] [address] [id number] [place] [address]- 6982 Nov, [facility] [place] [facility] [address] [id number] [place] [address]- 3837 Oct, [facility] [place] [facility] [address] [id number] [place] [address]- 0916 Oct, [facility] [place] [facility] [address] [id number] [place] [address]- 3125 Oct, [facility] [place] [facility] [address] [id number] [place] [address]- 3423 Oct, [facility] [place] [facility] [address] [id number] [place] [address]- 8254 Oct, [facility] [place] [facility] [address] [id number] [place] [address]- 4709 Oct, [facility] [place] [facility] [address] [id number] [place] [address]- 4079 Oct, [facility] [place] [facility] [address] [id number] [place] [address]- 5747 Oct, [facility] [place] [facility] [address] [id number] [place] [address]- 1796 Oct, [facility] [place] [facility] [address] [id number] [place] [address]- 8003 Sep, [facility] [place] [facility] [address] [id number] [place] [address]- 8443 Sep, [facility] [place] [facility] [address] [id number] [place] [address]- 0081 Sep, [facility] [place] [facility] [address] [id number] [place] [address]- 5684 Sep, [facility] [place] [facility] [address] [id number] [place] [address]- 3947 Sep, [facility] [place] [facility] [address] [id number] [place] [address]- 4411 Sep, [facility] [place] [facility] [address] [facility] [id number] [place] [address]- 6986 Sep, [facility] [address] [facility] [id number], [place] [address]- 5922 Sep, [facility] [address] [facility] [id number] [place] [address]- 5256 August, [facility] [address] [facility] [id number] [place] [address]- 3815 August, [facility] [address] [id number] [place] [address]- 1405 August, [facility] [address] [facility] [id number] [place] [address]- 4043 August, [facility] [address] [facility] [id number] [place] 7603 August, [facility] [id number], [place] [address]- 5063 August, [facility] [address] [facility] [id number], [place] [address]- 8225 August, [facility] [id number], [place] [address]- 9934 August, [facility] [id number], [place] [address] August, [facility] [id number], [place] [address] August, [facility] [address] [facility] [id number] [address] August, [facility] [id number], [place] [address] August, [facility] [address] [facility] [id number], [place] [address] Oct, IMMUNIZATIONS No Known Immunizations SOCIAL HISTORY Never Assessed REASON FOR VISIT correction PLAN OF CARE VITAL SIGNS Height 63 in 2017-06-03 Heart Rate 80 bpm 2017-06-03 Respiratory Rate 18 2017-06-03 Blood pressure systolic 100 mmHg 2017-06-03 Blood pressure diastolic 80 mmHg 2017-06-03 MEDICATIONS Medication Instructions Dosage Frequency Start Date End Date Duration Status Guaifenesin 400 MG Orally every 4 hrs 1 tablet as needed 4h May, Active Mirtazapine 15 MG Orally Once a day 1 tablet at bedtime 24h May, 30 day(s) Active RESULTS No Results PROCEDURES No [...] Surgical History bladder surgery Hospitalization History Via [facility] for right groin pain 05/2011 Hospitalization History Via [facility] for wound on buttocks 08/2012 Hospitalization History Via [facility], hypoxia secondary to pneumonia 12/02-12/09 Hospitalization History Pneumonia, elevated CO2 on Bipap was in ICU 08/2013 Hospitalization History Hypoxia, Exacerbation COPD, Chest pain 09/05/15 Hospitalization History suicidal ideations-Goff 12/28 Hospitalization History hypoxia--VC 02/13/2016 Hospitalization History shortness of breath at june 2016 Hospitalization History Shortness of breath at august 2016 Hospitalization History SOB, chest pain at 12/2016
--- OUTSIDE RECORDS SUMMARY | 2017-11-24 17:45 | XMS REPORT ---
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 ; Essential hypertension, benign 401.1 and Numbness of toes 782.0 [facility] [address] [address]- 1774 Nov, Episodic mood disorder 296.90 [facility] [address] [address]- 7059 Oct, [facility] [id number] [address]- 4550 Oct, [facility] [id number] [address]- 9370 Oct, [facility] [id number] [address]- 1814 Oct, [facility] [address] [address]- 9976 Oct, [facility] [id number] [address]- 2839 Oct, [facility] [address] [address]- 0866 Oct, [facility] [id number] [address]- 7235 Oct, [facility] [address] 0206 Oct, Episodic mood disorder 296.90 [facility] [id number] [place] [address]- 6837 30 Sep, 2014 [facility] [address] [facility] [id number] [place] [address]- 2121 Sep, [facility] [id number] [place] [address]- 8192 Sep, [facility] [address] [address]- 3759 Sep, [facility] [address] [address]- 5891 Sep, [facility] [address] [address]- 3093 Sep, Episodic mood disorder 296.90 [facility] [id number] [address]- 6324 Sep, Unspecified episodic mood disorder 296.90 [facility] [address] [address]- 2427 Sep, [facility] [id number] [address]- 0344 Sep, [facility] [address] [id number] [address]- 1897 16 Sep, 2014 Episodic mood disorder 296.90 [facility] [address] [address]- 9104 15 Sep, 2014 [facility] [address]- 7236 15 Sep, 2014 [facility] [address] [id number] [address]- 8766 Sep, [facility] [id number] [address]- 9551 Sep, Hematemesis 578.0 and Vomiting 787.03 [facility] [address] 3866 Sep, Episodic mood disorder 296.90 [facility] [address] [address]- 9421 Sep, [facility] [address] 0266 Sep, [facility] [id number] [place] [address] 258624- 6247 Sep, Diabetes mellitus without mention of complication, type II or unspecified type, not stated as uncontrolled 250.00 and Other chronic pain 338.29 [facility] [address] [address]- 4217 Sep, Episodic mood disorder 296.90 [facility] [address] [address]- 9075 Sep, [facility] [address] [address]- 2067 Sep, Episodic mood disorder 296.90 [facility] [address] [address]- 4527 Sep, [facility] [address] [address]- 9946 August, [facility] [address] [address]- 6984 August, [facility] [address] 4811 August, Episodic mood disorder 296.90 [facility] [address] [address]- 9009 August, [facility] [id number] [address]- 9106 August, Unspecified episodic mood disorder 296.90 [facility] [address] [place] [address]- 2060 August, Vomiting 787.03 [facility] [address] [facility] [id number] [place] [address]- 9927 August, [facility] [address] [facility] [id number] [place] [address]- 9341 August, [facility] [address] [facility] [id number] [place] [address]- 4934 August, [facility] [address] [id number] [address]- 9367 August, [facility] [address] [id number] [place] [address]- 4873 August, [facility] [address] [id number] [address]- 2081 Jul, [facility] [address] [id number] [address]- 1863 Jul, [facility] [address] [id number] [address]- 3186 Jul, [facility] [address] [id number] [address]- 4483 Jun, [facility] [address] [facility] [id number] [place] [address]- 2060 Jun, [facility] [address] [facility] [id number] [place] [address]- 0339 Jun, [facility] [address] [facility] [id number] [place] [address]- 2998 Jun, [facility] [address] [id number] [address]- 3318 Jun, [facility] [address] [id number] [address]- 5330 30 Jun, 2014 [facility] [place] [facility] [address] [id number] [place] [address]- 2354 Jun, [facility] [place] [facility] [address] [id number] [place] [address]- 2741 Jun, [facility] [place] [facility] [address] [id number] [place] [address]- 4912 Jun, [facility] [place] [facility] [address] [id number] [place] [address]- 0163 Jun, [facility] [place] [facility] [address] [id number] [place] [address]- 8991 Jun, [facility] [place] [facility] [address] [id number] [place] [address]- 7373 Jun, [facility] [place] [facility] [address] [id number] [place] [address]- 7356 Jun, [facility] [place] [facility] [address] [id number] [place] [address]- 9989 Jun, [facility] [place] [facility] [address] [id number] [place] [address]- 8162 Jun, [facility] [place] [facility] [address] [id number] [place] [address]- 1408 Jun, [facility] [place] [facility] [address] [id number] [place] [address]- 9923 Jun, [facility] [place] [facility] [address] [id number] [place] [address]- 8685 Jun, [facility] [place] [facility] [address] [id number] [place] [address]- 5852 Jun, [facility] [place] [facility] [address] [id number] [place] [address]- 0445 Jun, [facility] [place] [facility] [address] [id number] [place] [address]- 0500 Jun, [facility] [place] [facility] [address] [id number] [place] [address]- 1242 20 Jun, 2014 [facility] [place] [facility] [address] [id number] [place] [address]- 3470 20 Jun, 2014 [facility] [place] [facility] [address] [id number] [place] [address]- 4896 20 Jun, 2014 [facility] [place] [facility] [address] [id number] [place] [address]- 1798 20 Jun, 2014 [facility] [place] [facility] [address] [id number] [place] [address]- 7083 19 Jun, 2014 [facility] [place] [facility] [address] [id number] [place] [address]- 9370 19 Jun, 2014 [facility] [place] [facility] [address] [id number] [place] [address]- 8592 18 Jun, 2014 [facility] [place] [facility] [address] [id number] [place] [address]- 5487 18 Jun, 2014 [facility] [place] [facility] [address] [id number] [place] [address]- 8589 17 Jun, 2014 [facility] [place] [facility] [address] [id number] [place] [address] 17 Jun, 2014 [facility] [place] [facility] [address] [id number] [place] [address]261 16 Jun, 2014 [facility] [place] [facility] [address] [id number] [place] [address]80 16 Jun, 2014 [facility] [place] [facility] [address] [id number] [place] [address] 16 Jun, 2014 [facility] [place] [facility] [address] [id number] [place] [address] 16 Jun, 2014 [facility] [place] [facility] [address] [id number] [place] [address] 8036 16 Jun, 2014 [facility] [place] [facility] [address] [id number] [place] [address] 16 Jun, 2014 [facility] [place] [facility] [address] [id number] [place] [address] 3740 13 Jun, 2014 [facility] [place] [facility] [address] [id number] [place] [address] Jun, [facility] [place] [facility] [address] [id number] [place] [address] Jun, [facility] [place] [facility] [address] [id number] [place] [address] Jun, [facility] [place] [facility] [address] [id number] [place] [address] 6448 Jun, [facility] [place] [facility] [address] [id number] [place] [address]- 9967 Jun, 2014 [facility] [place] [facility] [address] [id number] [place] [address]- 1345 Jun, [facility] [place] [facility] [address] [id number] [place] [address] Jun, [facility] [place] [facility] [address] [id number] [place] [address]- [address] Jun, [facility] [place] [facility] [address] [id number] [place] [address] Jun, [facility] [place] [facility] [address] [id number] [place] [address]- [address] Jun, 2014 [facility] [place] [facility] [address] [id number] [place] [address] Jun, [facility] [place] [facility] [address] [id number] [place] [address]- [address] Jun, [facility] [place] [facility] [address] [id number] [place] [address]- [address] Jun, [facility] [place] [facility] [address] [id number] [place] [address]- [address]145 Jun, 2014 [facility] [place] [facility] [address] [id number] [place] [address]- 8021 Jun, [facility] [place] [facility] [address] [id number] [place] [address]- 5938 Jun, [facility] [place] [facility] [address] [id number] [place] [address]- 2648 Jun, [facility] [place] [facility] [address] [facility] [id number] [place] [address] 9449 Jun, [facility] [place] [facility] [address] [id number] [place] [address]- 7221 Jun, [facility] [place] [facility] [address] [id number] [place] [address]- 2837 May, 2014 [facility] [place] [facility] [address] [facility] [id number] [place] [address]- [address]195 May, 2014 [facility] [place] [facility] [address] [facility] [id number] [place] [address]- [address]402 May, 2014 [facility] [place] [facility] [address] [facility] [id number] [place] [address]- 8670 May, [facility] [place] [facility] [address] [id number] [place] [address] May, [facility] [place] [facility] [address] [facility] [id number] [place] [address]- 3187 May, 2014 [facility] [place] [facility] [address] [facility] [id number] [place] [address]- 8472 May, 2014 [facility] [place] [facility] [address] [facility] [id number] [place] [address]- 2544 May, 2014 [facility] [place] [facility] [address] [facility] [id number] [place] [address] 8971 May, 2014 [facility] [place] [facility] [address] [facility] [id number] [place] [address]- 6929 May, 2014 [facility] [place] [facility] [address] [facility] [id number] [place] [address]- 7518 18 May, 2014 [facility] [place] [facility] [address] [facility] [id number] [place] [address]- 8342 18 May, 2014 [facility] [place] [facility] [address] [facility] [id number] [place] [address]- 6296 May, 2014 [facility] [place] [facility] [address] [facility] [id number] [place] [address]- 6496 May, 2014 [facility] [place] [facility] [address] [facility] [id number] [place] [address]- 8449 May, 2014 [facility] [place] [facility] [address] [facility] [id number] [place] [address]- 4973 May, 2014 [facility] [place] [facility] [address] [facility] [id number] [place] [address]- 2207 May, 2014 [facility] [place] [facility] [address] [id number] [place] [address] May, 2014 [facility] [place] [facility] [address] [facility] [id number] [place] [address]- 1785 May, 2014 [facility] [place] [facility] [address] [facility] [id number] [place] [address] May, 2014 [facility] [place] [facility] [address] [facility] [id number] [place] [address] May, 2014 [facility] [place] [facility] [address] [facility] [id number] [place] [address] 2546 May, 2014 [facility] [place] [facility] [address] [facility] [id number] [place] [address] 2547 May, 2014 [facility] [place] [facility] [address] [facility] [id number] [place] [address] 8784 May, 2014 [facility] [place] [facility] [address] [facility] [id number] [place] [address] 2540 May, 2014 [facility] [place] [facility] [address] [id number] [place] [address] May, [facility] [place] [facility] [address] [id number] [place] [address] 0941 May, [facility] [place] [facility] [address] [id number] [place] [address] 2626 Apr, [facility] [place] [facility] [address] [id number] [place] [address] 0078 Apr, [facility] [place] [facility] [address] [id number] [place] [address] 5860 Apr, [facility] [place] [facility] [address] [id number] [place] [address] 8088 Apr, [facility] [place] [facility] [address] [id number] [place] [address]- 0041 Apr, [facility] [place] [facility] [address] [id number] [place] [address]- 9233 Apr, [facility] [place] [facility] [address] [id number] [place] [address]- 1139 Apr, [facility] [place] [facility] [address] [id number] [place] [address]- 6226 Apr, [facility] [place] [facility] [address] [id number] [place] [address] 4[address] Apr, [facility] [place] [facility] [address] [id number] [place] [address] 2[address] Apr, [facility] [place] [facility] [address] [id number] [place] [address] 7900 Apr, [facility] [place] [facility] [address] [id number] [place] [address]- 8042 Apr, [facility] [place] [facility] [address] [id number] [place] [address] 4269 Apr, [facility] [place] [facility] [address] [id number] [place] [address]- 2651 Apr, [facility] [place] [facility] [address] [id number] [place] [address]- 6596 Apr, [facility] [place] [facility] [address] [id number] [place] [address]- 9736 Apr, [facility] [place] [facility] [address] [id number] [place] [address]- 1476 Apr, [facility] [place] [facility] [address] [id number] [place] [address]- 3528 Apr, [facility] [place] [facility] [address] [id number] [place] [address]- 9174 Apr, [facility] [place] [facility] [address] [id number] [place] [address]- 5211 Apr, [facility] [place] [facility] [address] [id number] [place] [address] 1998 Mar, [facility] [place] [facility] [address] [id number] [place] [address]- 3603 Mar, [facility] [place] [facility] [address] [id number] [place] [address]- 6988 Mar, [facility] [place] [facility] [address] [id number] [place] [address]- 1788 Mar, [facility] [place] [facility] [address] [facility] [id number] [place] [address]- 0758 Mar, [facility] [place] [facility] [address] [id number] [place] [address]- 0300 Mar, [facility] [place] [facility] [address] [id number] [place] [address]- 2108 Mar, [facility] [place] [facility] [address] [id number] [place] [address] 0442 18 Mar, 2014 [facility] [place] [facility] [address] [id number] [place] [address]- 0524 15 Mar, 2014 [facility] [place] [facility] [address] [id number] [place] [address]- 9681 15 Mar, 2014 [facility] [place] [facility] [address] [id number] [place] [address]- 1703 Mar, [facility] [place] [facility] [address] [id number] [place] [address]- 9810 Mar, [facility] [place] [facility] [address] [id number] [place] [address]- 1637 Mar, [facility] [place] [facility] [address] [id number] [place] [address]- 6273 Mar, [facility] [place] [facility] [address] [id number] [place] [address]- 2552 Mar, [facility] [place] [facility] [address] [id number] [place] [address]- 1841 Mar, [facility] [place] [facility] [address] [id number] [place] [address]- 1304 Feb, [facility] [place] [facility] [address] [id number] [place] [address]- 2290 Feb, [facility] [place] [facility] [address] [id number] [place] [address]- 1162 Feb, [facility] [place] [facility] [address] [id number] [place] [address]- 0012 Feb, [facility] [place] [facility] [address] [id number] [place] [address]- 3719 Feb, [facility] [place] [facility] [address] [id number] [place] [address]- 0281 Feb, [facility] [place] [facility] [address] [id number] [place] [address]- 1012 Feb, [facility] [place] [facility] [address] [id number] [place] [address]- 0866 Feb, [facility] [place] [facility] [address] [id number] [place] [address]- 5063 Feb, [facility] [place] [facility] [address] [id number] [place] [address]- 1767 17 Feb, 2014 [facility] [place] [facility] [address] [id number] [place] [address]- 7594 17 Feb, 2014 [facility] [place] [facility] [address] [id number] [place] [address]- 9276 17 Feb, 2014 [facility] [place] [facility] [address] [id number] [place] [address]- 3672 Feb, [facility] [place] [facility] [address] [id number] [place] [address]- 3546 Feb, [facility] [place] [facility] [address] [id number] [place] [address]- 9088 Feb, [facility] [place] [facility] [address] [id number] [place] [address]- 2935 Feb, [facility] [place] [facility] [address] [id number] [place] [address]- 6606 Feb, [facility] [place] [facility] [address] [id number] [place] [address]- 0256 Feb, [facility] [place] [facility] [address] [id number] [place] [address]- 6332 Feb, [facility] [place] [facility] [address] [id number] [place] [address]- 6331 Feb, [facility] [place] [facility] [address] [id number] [place] [address]- 6586 Feb, [facility] [place] [facility] [address] [id number] [place] [address]- 9294 Jan, [facility] [place] [facility] [address] [id number] [place] [address]- 3479 Jan, [facility] [place] [facility] [address] [id number] [place] [address]- 4163 Jan, [facility] [place] [facility] [address] [id number] [place] [address]- 6323 Jan, [facility] [place] [facility] [address] [id number] [place] [address]- 7392 24 Jan, 2013 [facility] [place] [facility] [address] [id number] [place] [address]- 5943 24 Jan, 2013 [facility] [place] [facility] [address] [id number] [place] [address]- 3288 21 Jan, 2014 [facility] [place] [facility] [address] [id number] [place] [address]- 6737 21 Jan, 2014 [facility] [place] [facility] [address] [id number] [place] [address]- 9711 20 Jan, 2013 [facility] [place] [facility] [address] [id number] [place] [address]- 5235 20 Jan, 2014 [facility] [place] [facility] [address] [id number] [place] [address]- 0206 17 Jan, 2014 [facility] [place] [facility] [address] [id number] [place] [address]- 5626 17 Jan, 2014 [facility] [place] [facility] [address] [id number] [place] [address]- 1303 17 Jan, 2014 [facility] [place] [facility] [address] [id number] [place] [address]- 5589 17 Jan, 2013 [facility] [place] [facility] [address] [id number] [place] [address]- 8007 15 Jan, 2014 [facility] [place] [facility] [address] [id number] [place] [address]- 8366 15 Jan, 2013 [facility] [place] [facility] [address] [id number] [place] [address]- 4078 14 Jan, 2014 [facility] [place] [facility] [address] [id number] [place] [address]- 5489 14 Jan, 2014 [facility] [place] [facility] [address] [id number] [place] [address]- 2771 13 Jan, 2013 [facility] [place] [facility] [address] [id number] [place] [address]- 8957 13 Jan, 2014 [facility] [place] [facility] [address] [id number] [place] [address]- 8723 13 Jan, 2014 [facility] [place] [facility] [address] [id number] [place] [address]- 9474 13 Jan, 2014 [facility] [place] [facility] [address] [id number] [place] [address]- 5971 10 Jan, 2014 [facility] [place] [facility] [address] [id number] [place] [address]- 6647 Jan, [facility] [place] [facility] [address] [id number] [place] [address]- 7956 Jan, [facility] [place] [facility] [address] [id number] [place] [address]- 3673 25 Dec, 2013 [facility] [place] [facility] [address] [id number] [place] [address]- 0082 25 Dec, 2013 [facility] [place] [facility] [address] [id number] [place] [address]- 6972 23 Dec, 2013 [facility] [place] [facility] [address] [id number] [place] [address]- 4510 23 Dec, 2013 [facility] [place] [facility] [address] [id number] [place] [address]- 5705 19 Dec, 2013 [facility] [place] [facility] [address] [id number] [place] [address]- 7239 19 Dec, 2013 [facility] [place] [facility] [address] [id number] [place] [address]- 4950 17 Dec, 2013 [facility] [place] [facility] [address] [id number] [place] [address]- 3320 17 Dec, 2013 [facility] [place] [facility] [address] [id number] [place] [address]- 4764 09 Dec, 2013 [facility] [place] [facility] [address] [id number] [place] [address]- 6417 09 Dec, 2013 [facility] [place] [facility] [address] [id number] [place] [address]- 1502 08 Dec, 2013 [facility] [place] [facility] [address] [id number] [place] [address]- 9789 08 Dec, 2013 [facility] [place] [facility] [address] [id number] [place] [address]- 4905 Dec, 2013 [facility] [place] [facility] [address] [id number] [place] [address]- 0748 Dec, 2013 [facility] [place] [facility] [address] [id number] [place] [address]- 9735 Dec, 2013 [facility] [place] [facility] [address] [id number] [place] [address]- 2357 Dec, 2013 [facility] [place] [facility] [address] [id number] [place] [address]- 0811 Dec, 2013 [facility] [place] [facility] [address] [id number] [place] [address]- 7771 Dec, 2013 [facility] [place] [facility] [address] [id number] [place] [address]- 5724 Nov, [facility] [place] [facility] [address] [id number] [place] [address]- 1661 Nov, [facility] [place] [facility] [address] [id number] [place] [address]- 9138 Nov, [facility] [place] [facility] [address] [id number] [place] [address]- 6153 Nov, [facility] [place] [facility] [address] [id number] [place] [address]- 9975 Nov, [facility] [place] [facility] [address] [id number] [place] [address]- 0052 Nov, [facility] [place] [facility] [address] [id number] [place] [address]- 4269 Nov, [facility] [place] [facility] [address] [id number] [place] [address]- 6438 Nov, [facility] [place] [facility] [address] [id number] [place] [address]- 7255 Nov, [facility] [place] [facility] [address] [id number] [place] [address]- 4838 Nov, [facility] [place] [facility] [address] [id number] [place] [address] Nov, [facility] [place] [facility] [address] [id number] [place] [address]- 9845 Nov, [facility] [place] [facility] [address] [id number] [place] [address]- 9294 Oct, [facility] [place] [facility] [address] [id number] [place] [address]- 6415 Oct, [facility] [place] [facility] [address] [id number] [place] [address]- 4207 Oct, [facility] [place] [facility] [address] [id number] [place] [address]- 5382 Oct, [facility] [place] [facility] [address] [id number] [place] [address]- 1522 Oct, [facility] [place] [facility] [address] [id number] [place] [address]- 9126 Oct, [facility] [place] [facility] [address] [id number] [place] [address]- 1151 Oct, [facility] [place] [facility] [address] [id number] [place] [address]- 0784 Oct, [facility] [place] [facility] [address] [id number] [place] [address]- 1986 Oct, [facility] [place] [facility] [address] [id number] [place] [address]- 7045 Oct, [facility] [place] [facility] [address] [id number] [place] [address]- 0466 Oct, [facility] [place] [facility] [address] [id number] [place] [address]- 9180 Oct, [facility] [place] [facility] [address] [id number] [place] [address]- 1367 14 Oct, 2013 [facility] [place] [facility] [address] [id number] [place] [address]- 7769 14 Oct, 2013 [facility] [place] [facility] [address] [id number] [place] [address]- 2962 13 Oct, 2013 [facility] [place] [facility] [address] [id number] [place] [address]- 8121 13 Oct, 2013 [facility] [place] [facility] [address] [id number] [place] [address]- 8161 Oct, [facility] [place] [facility] [address] [id number] [place] [address]- 0416 27 Sep, 2013 [facility] [place] [facility] [address] [id number] [place] [address]- 2249 27 Sep, 2013 [facility] [place] [facility] [address] [id number] [place] [address]- 9243 20 Sep, 2013 [facility] [place] [facility] [address] [id number] [place] [address]- 1788 20 Sep, 2013 [facility] [place] [facility] [address] [id number] [place] [address]- 6383 18 Sep, 2013 [facility] [place] [facility] [address] [id number] [place] [address]- 1754 18 Sep, 2013 [facility] [place] [facility] [address] [id number] [place] [address]- 1148 17 Sep, 2013 [facility] [place] [facility] [address] [id number] [place] [address]- 2254 17 Sep, 2013 [facility] [place] [facility] [address] [id number] [place] [address]- 6962 11 Sep, 2013 [facility] [place] [facility] [address] [id number] [place] [address]- 5142 Sep, [facility] [place] [facility] [address] [id number] [place] [address]- 6260 Sep, [facility] [place] [facility] [address] [id number] [place] [address]- 3468 Sep, [facility] [place] [facility] [address] [id number] [place] [address]- 1062 Sep, [facility] [place] [facility] [address] [id number] [place] [address]- 9725 Sep, [facility] [place] [facility] [address] [id number] [place] [address]- 5437 Sep, [facility] [place] [facility] [address] [id number] [place] [address]- 5473 Sep, [facility] [place] [facility] [address] [id number] [place] [address]- 7139 Sep, [facility] [place] [facility] [address] [id number] [place] [address]- 4947 Sep, [facility] [place] [facility] [address] [id number] [place] [address]- 0532 Sep, [facility] [place] [facility] [address] [id number] [place] [address]- 6553 Sep, [facility] [place] [facility] [address] [id number] [place] [address]- 0869 Sep, [facility] [place] [facility] [address] [id number] [place] [address]- 5928 Sep, [facility] [place] [facility] [address] [id number] [place] [address]- 8669 August, [facility] [place] [facility] [address] [id number] [place] [address]- 4330 August, [facility] [place] [facility] [address] [id number] [place] [address]- 0721 August, [facility] [place] [facility] [address] [id number] [place] [address]- 7135 August, [facility] [place] [facility] [address] [id number] [place] [address]- 4215 August, [facility] [place] [facility] [address] [id number] [place] [address]- 5600 August, [facility] [place] [facility] [address] [id number] [place] [address]- 7739 August, [facility] [place] [facility] [address] [id number] [place] [address]- 5856 August, [facility] [place] [facility] [address] [id number] [place] [address]- 1473 August, [facility] [place] [facility] [address] [id number] [place] [address]- 0328 August, [facility] [place] [facility] [address] [id number] [place] [address]- 9782 August, [facility] [place] [facility] [address] [id number] [place] [address]- 0382 Jul, [facility] [place] [facility] [address] [id number] [place] [address]- 8877 Jul, [facility] [place] [facility] [address] [id number] [place] [address]- 9991 Jul, [facility] [place] [facility] [address] [id number] [place] [address]- 7496 Jul, [facility] [place] [facility] [address] [id number] [place] [address]- 9922 Jul, [facility] [place] [facility] [address] [id number] [place] [address]- 7926 Jul, [facility] [place] [facility] [address] [id number] [place] [address]- 0789 Jul, [facility] [place] [facility] [address] [id number] [place] [address]- 8867 Jul, [facility] [place] [facility] [address] [id number] [place] [address]- 1258 18 Jul, 2013 [facility] [place] [facility] [address] [id number] [place] [address]- 6915 18 Jul, 2013 [facility] [place] [facility] [address] [id number] [place] [address]- 7518 16 Jul, 2013 [facility] [place] [facility] [address] [id number] [place] [address]- 0056 Jul, [facility] [place] [facility] [address] [id number] [place] [address]- 3177 14 Jul, 2013 [facility] [place] [facility] [address] [id number] [place] [address]- 9923 Jul, [facility] [place] [facility] [address] [id number] [place] [address]- 1200 Jul, [facility] [place] [facility] [address] [id number] [place] [address]- 5118 Jul, [facility] [place] [facility] [address] [id number] [place] [address]- 2872 Jul, [facility] [place] [facility] [address] [id number] [place] [address]- 8102 Jul, [facility] [place] [facility] [address] [id number] [place] [address]- 4640 Jul, [facility] [place] [facility] [address] [id number] [place] [address]- 5033 Jul, [facility] [place] [facility] [address] [id number] [place] [address]- 2210 Jul, [facility] [place] [facility] [address] [id number] [place] [address]- 9458 Jul, [facility] [place] [facility] [address] [id number] [place] [address]- 5988 Jul, [facility] [place] [facility] [address] [id number] [place] [address] Jun, [facility] [place] [facility] [address] [id number] [place] [address] Jun, [facility] [address] [id number] [place] [address] Jun, [facility] [place] [facility] [address] [id number] [place] [address]66 Jun, [facility] [place] [facility] [address] [id number] [place] [address] 58[address] Jun, [facility] [place] [facility] [address] [id number] [place] [address]- [address]471 Jun, [facility] [place] [facility] [address] [id number] [place] [address] 0698 Jun, [facility] [place] [facility] [address] [id number] [place] [address] Jun, [facility] [place] [facility] [address] [id number] [place] [address] 18 Jun, 2013 [facility] [place] [facility] [address] [id number] [place] [address] 18 Jun, 2013 [facility] [place] [facility] [address] [id number] [place] [address] Jun, [facility] [place] [facility] [address] [id number] [place] [address] 1674 Jun, [facility] [place] [facility] [address] [id number] [place] [address] May, [facility] [place] [facility] [address] [id number] [place] [address]- 5905 May, [facility] [place] [facility] [address] [id number] [place] [address]- 1485 Apr, [facility] [place] [facility] [address] [id number] [place] [address]- [address] Apr, [facility] [place] [facility] [address] [id number] [place] [address] Apr, [facility] [place] [facility] [address] [id number] [place] [address]- 9351 Apr, [facility] [place] [facility] [address] [id number] [place] [address]- [address]273 Apr, [facility] [place] [facility] [address] [id number] [place] [address]- [address]484 Apr, [facility] [place] [facility] [address] [id number] [place] [address] 9305 Apr, [facility] [place] [facility] [address] [id number] [place] [address]- 2096 Apr, [facility] [place] [facility] [address] [id number] [place] [address] 58[address] Apr, [facility] [place] [facility] [address] [id number] [place] [address]- 7846 Apr, [facility] [place] [facility] [address] [id number] [place] [address]- [address] Apr, [facility] [place] [facility] [address] [id number] [place] [address]- 1148 Mar, [facility] [place] [facility] [address] [id number] [place] [address] 14[address] Mar, [facility] [place] [facility] [address] [id number] [place] [address] Mar, [facility] [place] [facility] [address] [id number] [place] [address] 42[address] Mar, [facility] [place] [facility] [address] [id number] [place] [address]- 7931 Feb, [facility] [place] [facility] [address] [id number] [place] [address] 7803 Feb, [facility] [place] [facility] [address] [id number] [place] [address] Feb, [facility] [place] [facility] [address] [id number] [place] [address] 6190 Feb, [facility] [place] [facility] [address] [id number] [place] [address]- [address]39 Feb, [facility] [place] [facility] [address] [id number] [place] [address] Feb, [facility] [place] [facility] [address] [facility] [id number] [place] [address] 4[address] Feb, [facility] [place] [facility] [address] [id number] [place] [address] Feb, [facility] [place] [facility] [address] [id number] [place] [address] 8930 Feb, [facility] [place] [facility] [address] [id number] [place] [address] Feb, [facility] [place] [facility] [address] [facility] [id number] [place] [address]- 116[address] Feb, [facility] [place] [facility] [address] [id number] [place] [address]- 395[address] Jan, [facility] [place] [facility] [address] [facility] [id number] [place] [address]- [address] Jan, [facility] [place] [facility] [address] [facility] [id number] [place] [address]- 6[address] Jan, [facility] [place] [facility] [address] [facility] [id number] [place] [address] 26[address] Jan, [facility] [place] [facility] [address] [facility] [id number] [place] [address]- 0137 Jan, [facility] [place] [facility] [address] [id number] [place] [address]- 5141 Jan, [facility] [place] [facility] [address] [facility] [id number] [place] [address]- 75[address] Jan, [facility] [place] [facility] [address] [facility] [id number] [place] [address]- 9[address] Jan, [facility] [place] [facility] [address] [id number] [place] [address]- [address]24 30 Sep, 2012 [facility] [place] [facility] [address] [id number] [place] [address] 2546 25 Sep, 2012 [facility] [place] [facility] [address] [id number] [place] [address] 2546 18 Sep, 2012 [facility] [place] [facility] [address] [id number] [place] [address] 2546 17 Sep, 2012 [facility] [place] [facility] [address] [id number] [place] [address] 2543 17 Sep, 2012 [facility] [place] [facility] [address] [id number] [place] [address]- 9529 16 Sep, 2012 [facility] [place] [facility] [address] [id number] [place] [address]- 6042 13 Dec, 2012 [facility] [place] [facility] [address] [id number] [place] [address]- 6101 11 Dec, 2012 [facility] [place] [facility] [address] [id number] [place] [address] 2543 05 Dec, 2012 [facility] [place] [facility] [address] [id number] [place] [address]- 1257 04 Dec, 2012 [facility] [place] [facility] [address] [id number] [place] [address]- 7501 30 Nov, 2012 [facility] [place] [facility] [address] [id number] [place] [address]- 3239 29 Nov, 2012 [facility] [place] [facility] [address] [id number] [place] [address] 2540 22 Nov, 2012 [facility] [place] [facility] [address] [id number] [place] [address]- 2549 16 Nov, 2012 [facility] [place] [facility] [address] [id number] [place] [address]- 2548 14 Nov, 2012 [facility] [place] [facility] [address] [id number] [place] [address]- 6702 Nov, [facility] [place] [facility] [address] [id number] [place] [address]- 0245 Nov, [facility] [place] [facility] [address] [id number] [place] [address]- 5204 Oct, [facility] [place] [facility] [address] [id number] [place] [address]- 9325 Oct, [facility] [place] [facility] [address] [id number] [place] [address]- 2049 Oct, [facility] [place] [facility] [address] [id number] [place] [address]- 7644 Oct, [facility] [place] [facility] [address] [id number] [place] [address]- 4218 Oct, [facility] [place] [facility] [address] [id number] [place] [address]- 5201 Oct, [facility] [place] [facility] [address] [id number] [place] [address]- 7129 Sep, [facility] [place] [facility] [address] [id number] [place] [address]- 6523 Sep, [facility] [place] [facility] [address] [id number] [place] [address]- 0203 Sep, [facility] [place] [facility] [address] [id number] [place] [address]- 4268 14 Sep, 2012 [facility] [place] [facility] [address] [id number] [place] [address]- 0669 13 Sep, 2012 [facility] [place] [facility] [address] [id number] [place] [address]- 3297 10 Sep, 2012 [facility] [place] [facility] [address] [id number] [place] [address]- 2617 07 Sep, 2012 [facility] [place] [facility] [address] [address] [id number] [place] [address] 06 Sep, 2012 [facility] [place] [facility] [address] [id number] [place] [address] Sep, [facility] [address] [id number] [place] [address] August, [facility] [address] [id number] [place] [address] August, [facility] [address] [id number] [place] [address] August, [facility] [address] [id number] [place] [address] August, [facility] [address] [id number] [place] [address] August, [facility] [address] [id number] [place] [address] August, [facility] [address] [id number] [place] [address] August, [facility] [address] [id number] [place] [address] August, [facility] [address] [id number] [place] [address] Jul, [facility] [address] [id number] [place] [address] Jul, Via [address] [id number] Jul [facility] [address] [id number] [place] [address] Jun, [facility] [address] [id number] [place] [address] Jun, [facility] [address] [id number] [place] [address] Jun, [facility] [address] [id number] [place] [address] Jun, [facility] [address] [id number] [place] [address] 254 Jun, [facility] [address] [id number] [place] [address] Jun, [facility] [place] [facility] [address] [id number] [place] [address] 2546 May, [facility] [address] [id number] [place] [address] 2546 May, [facility] [place] [facility] [address] [id number] [place] [address] 2543 May, [facility] [address] [id number] [place] [address] May, [facility] [address] [id number] [place] [address] May, [facility] [address] [id number] [place] [address] Apr, [facility] [address] [id number] [place] [address] Apr, [facility] [address] [id number] [place] [address] 14[address] Apr, [facility] [address] [id number] [place] [address] Apr, [facility] [address] [id number] [place] [address] Apr, [facility] [address] [id number] [place] [address] Apr, [facility] [place] [facility] [address] [id number] [place] [address] 2546 Mar, [facility] [place] [facility] [address] [id number] [place] [address] 2546 Mar, [facility] [place] [facility] [address] [id number] [place] [address] Mar, 2012 [facility] [place] [facility] [address] [id number] [place] [address] 1454 19 Mar, 2012 [facility] [place] [facility] [address] [id number] [place] [address] Mar, [facility] [place] [facility] [address] [facility] [id number] [place] [address] 18 Mar, 2012 [facility] [place] [facility] [address] [id number] [place] [address] 18 Mar, 2012 [facility] [place] [facility] [address] [id number] [place] [address] Mar, [facility] [place] [facility] [address] [id number] [place] [address] Mar, [facility] [place] [facility] [address] [id number] [place] [address] 1673 Mar, [facility] [place] [facility] [address] [id number] [place] [address] 05 Mar, 2012 [facility] [place] [facility] [address] [id number] [place] [address] 40[address] Feb, [facility] [place] [facility] [address] [id number] [place] [address] 28 Feb, 2012 [facility] [place] [facility] [address] [id number] [place] [address] Feb, [facility] [place] [facility] [address] [id number] [place] [address] Feb, [facility] [place] [facility] [address] [id number] [place] [address] 7877 Feb, [facility] [place] [facility] [address] [id number] [place] [address] 16 Feb, 2012 [facility] [place] [facility] [address] [id number] [place] [address] 16 Feb, 2012 [facility] [place] [facility] [address] [id number] [place] [address] Feb, [facility] [place] [facility] [address] [id number] [place] [address] 0068 Feb, [facility] [place] [facility] [address] [id number] [place] [address] Feb, [facility] [place] [facility] [address] [id number] [place] [address] 1544 Feb, [facility] [place] [facility] [address] [id number] [place] [address] Jan, [facility] [place] [facility] [address] [id number] [place] [address] Jan, [facility] [place] [facility] [address] [id number] [place] [address]140 Jan, [facility] [place] [facility] [address] [id number] [place] [address] 4088 Jan, [facility] [place] [facility] [address] [id number] [place] [address]- 7992 Jan, [facility] [place] [facility] [address] [id number] [place] [address] Jan, [facility] [place] [facility] [address] [facility] [id number] [place] [address] 6[address] Jan, [facility] [place] [facility] [address] [id number] [place] [address]958 24 Dec, 2011 [facility] [place] [facility] [address] [id number] [place] [address] 7191 17 Dec, 2011 [facility] [place] [facility] [address] [id number] [place] [address] 2193 13 Dec, 2011 [facility] [place] [facility] [address] [id number] [place] [address] 0140 12 Dec, 2011 [facility] [place] [facility] [address] [id number] [place] [address] Nov, [facility] [place] [facility] [address] [id number] [place] [address]- 6476 Nov, [facility] [place] [facility] [address] [id number] [place] [address] 2849 Nov, [facility] [place] [facility] [address] [id number] [place] [address]- 8233 Nov, [facility] [place] [facility] [address] [id number] [place] [address]- 7862 Nov, [facility] [place] [facility] [address] [id number] [place] [address]87 Nov, [facility] [place] [facility] [address] [id number] [place] [address]- 4907 Nov, [facility] [place] [facility] [address] [id number] [place] [address]- 9460 Nov, [facility] [place] [facility] [address] [id number] [place] [address]- 3514 Nov, [facility] [place] [facility] [address] [id number] [place] [address]- 8679 Nov, [facility] [place] [facility] [address] [id number] [place] [address]- 3069 Nov, [facility] [place] [facility] [address] [id number] [place] [address]- 6942 Nov, [facility] [place] [facility] [address] [id number] [place] [address]- 8449 Nov, [facility] [place] [facility] [address] [id number] [place] [address]- 1007 Oct, [facility] [place] [facility] [address] [id number] [place] [address]- 8034 Oct, [facility] [place] [facility] [address] [id number] [place] [address]- 9376 Oct, [facility] [place] [facility] [address] [id number] [place] [address]- 0742 Oct, [facility] [place] [facility] [address] [id number] [place] [address]- 0366 Oct, [facility] [place] [facility] [address] [id number] [place] [address]- 1767 Oct, [facility] [place] [facility] [address] [id number] [place] [address]- 5204 Oct, [facility] [place] [facility] [address] [id number] [place] [address]- 9429 Oct, [facility] [place] [facility] [address] [id number] [place] [address]- 3517 Oct, [facility] [place] [facility] [address] [id number] [place] [address]- 8713 Sep, [facility] [place] [facility] [address] [id number] [place] [address]- 8455 Sep, [facility] [place] [facility] [address] [id number] [place] [address]- 5806 Sep, [facility] [place] [facility] [address] [id number] [place] [address]- 5352 Sep, [facility] [place] [facility] [address] [id number] [place] [address]- 5947 Sep, [facility] [place] [facility] [address] [id number] [place] [address]- 3293 Sep, [facility] [place] [facility] [address] [id number] [place] [address]- 0339 Sep, [facility] [place] [facility] [address] [id number] [place] [address]- 3667 Sep, [facility] [place] [facility] [address] [id number] [place] [address]- 4320 August, [facility] [place] [facility] [address] [id number] [place] [address]- 1435 August, [facility] [place] [facility] [address] [id number] [address] August, [facility] [address] [id number] [address]- 4872 August, [facility] [id number] [place] [address]- 2238 August, [facility] [id number] [address]- 2019 August, [facility] [id number] [address]- [address] August, [facility] [id number] [place] [address] August, [facility] [id number] [address]- 0179 August, [facility] [id number] [address]- 9633 August, [facility] [address] [id number] [address]- 8652 August, [facility] [address] [id number] [address]- 6[address] August, [facility] [address] [id number] [address]- 6874 Oct, IMMUNIZATIONS No Known Immunizations SOCIAL HISTORY Never Assessed REASON FOR VISIT triage - CBowmanRN PLAN OF CARE VITAL SIGNS MEDICATIONS Unknown [...] wound on buttocks 08/2012 Hospitalization History Via [facility], hypoxia secondary to pneumonia 12/02-12/09 Hospitalization History Pneumonia, elevated CO2 on Bipap was in ICU 08/2013 Hospitalization History Hypoxia, Exacerbation COPD, Chest pain 09/05/15 Hospitalization History suicidal ideations-[place] 12/28 Hospitalization History hypoxia--[facility] 02/13/2016 Hospitalization History shortness of breath at june 2016 Hospitalization History Shortness of breath at august 2016 Hospitalization History SOB, chest pain at 12/2016
--- OUTSIDE RECORDS SUMMARY | 2017-11-24 17:47 | XMS REPORT ---
Author Author JIMENA ZAINAB [facility] Address [address] [place] [address] Care Team Providers Care Hse Coordinator Name Role Phone KELSEY HESSY Unavailable PROBLEMS Type Condition ICD9-CM Code JZH05-CL Code Onset Dates Condition Status SNOMED Code Problem Primary insomnia F51.01 Active 114628767 Problem Type 2 diabetes mellitus with hyperglycemia E11.65 Active 47861520 Problem Major depressive disorder, recurrent, unspecified F33.9 Active 301637857 Problem Acute and chronic respiratory failure with hypoxia J96.21 Active 01268495595976113 Problem Microalbuminuria R80.9 Active 114943136 Problem Dysphagia, unspecified type R13.10 Active 34737972 Problem 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 Active 831097269799 Problem Morbid obesity with alveolar hypoventilation E66.2 Active 393056712 Problem Chronic tension-type headache, intractable G44.221 Active 195670050 Problem Type 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 Active 22900972 Problem MRSA (methicillin resistant Staphylococcus aureus) A49.02 Active 156217413 Problem Recurrent cellulitis L03.90 Active 535878872 Problem Chronic diarrhea K52.9 Active 880503079 Problem Chronic nausea R11.0 Active 487183576 Problem Gastroesophageal reflux disease, esophagitis presence not specified K21.9 Active 737322142 Problem Tinnitus of both ears H93.13 Active 8194318878095 Problem Essential hypertension I10 Active 39677481 Problem Anxiety F41.9 Active 83367971 Problem Lymphedema I89.0 Active 622827443 Problem Hypertriglyceridemia E78.1 Active 571205275 Problem Meralgia paresthetica, unspecified laterality G57.10 Active 98442032 Problem Obstructive sleep apnea G47.33 Active 10975396 Problem Low back pain M54.5 Active 290831232 ALLERGIES Substance Reaction Event Type Date Status Amitriptyline HCl Unknown Drug Allergy August, Active Hydrocodone-acetaminophen 7.5-500 Mg Tablet Violated narcotics contract Non Drug Allergy August, Active SOCIAL HISTORY Never Assessed PLAN OF CARE Activity Details Follow Up 2 Weeks Reason:Swallowing problems VITAL SIGNS Height 63 in 2016-08-20 Weight 500.9 lbs 2016-08-20 Temperature 98.4 degrees Fahrenheit 2016-08-20 Heart Rate 106 bpm 2016-08-20 Respiratory Rate 24 2016-08-20 Oximetry 96 % 2016-08-20 BMI 88.72 kg/m2 2016-08-20 Blood pressure systolic 134 mmHg 2016-08-20 Blood pressure diastolic 68 mmHg 2016-08-20 MEDICATIONS Medication Instructions Dosage Frequency Start Date End Date Duration Status Ibuprofen 600 MG Orally 4 times a day 1 tablet as needed 6h 30 days Active Gemfibrozil 600 MG Orally Twice a day 1 tablet 12h 90 days Active Insulin Syringe 31G X 5/16 as directed 6h Jun, Active Pravastatin Sodium 40 mg Orally Once a day 1 tablet 24h 90 days Active Ranitidine HCl 150 MG Orally Once a day 2 tablets at bedtime 24h 90 days Active ProAir HFA 108 (90 Base) MCG/ACT Inhalation every 4 hrs 2 puffs as needed 4h 30 days Active NovoLog 100 UNIT/ML Subcutaneous 3 times a day 30 units 8h Jun, 30 days Active Symbicort 160-4.5 MCG/ACT Inhalation Twice a day 2 puffs 12h Active Lancets Ultra Fine - as directed May, Active Cetirizine HCl 10 mg Orally Once a day 1 tablet 24h Apr, 90 days Active Lyrica 150 MG Orally 2 times a day 2 capsules 12h 90 days Active Test strips Test Strips Accu-check strips as directed 6h Jul, Active Chlorhexidine Gluconate 4 % Externally daily -avoid face, head, genitals as directed Jul, 10 days Active Omeprazole 40 mg Orally Once a day 1 capsule 24h 90 days Active Ipratropium [place] 0.02 % Inhalation every 8 hours, PRN 2.5 ml 30 days Active Montelukast Sodium 10 mg Orally Once a day 1 tablet in the evening 24h 90 days Active Lisinopril 20 MG Orally Once a day 1 tablet 24h 90 Active Carafate 1 GM Orally 4 times a day 1 tablet on an empty stomach 6h Jul, August, 30 day(s) Active Benzonatate 200 mg Orally Three times a day 1 capsule as needed 8h Apr, Active Loperamide HCl 2 MG TAKE 2 CAPSULES BY MOUTH AFTER FIRST LOOSE STOOL THEN TAKE 1 CAPSULE AFTER EACH LOOSE STOOL - MAX 8 PER DAY 5 Active Cyclobenzaprine HCl 10 MG Orally Three times a day 1 tablet 8h 90 days Active Ondansetron 8 MG Orally every 8 hours, PRN 1 tablet on the tongue and allow to dissolve 90 days Active TRUEplus Insulin Syringe 31G X 5/16 USE DIRECTED 4 TIMES A DAY 25 Active Metformin HCl 1000 MG Orally 2 times a day 1 tablet with meals 12h 90 days Active UltiCare Mini Pen [place] 31G X 6 MM USE DIRECTED 12 Active Lantus 100 UNIT/ML Subcutaneous Twice a day 55 units 12h 10 Jun, 2015 30 days Active RESULTS No Results PROCEDURES Procedure Date Ordered Result Body Site MEASURE BLOOD OXYGEN LEVEL August 20, 2016 IMMUNIZATIONS No Known Immunizations MEDICAL (GENERAL) HISTORY Type Description Date Medical History asthma Medical History acid reflux Medical History headache Medical History chronic pain-back and legs Medical History depression Medical History anxiety Medical History anger outbursts Medical History obesity Medical History Diabetic Surgical History abdominal surgery-to remove abscess 2007 Surgical History tonsillectomy Surgical History bladder surgery Hospitalization History Via [facility] for right groin pain 05/2011 Hospitalization History Via [facility] for wound on buttocks 08/2012 Hospitalization History Via [facility], hypoxia secondary to pneumonia 12/02-12/09 Hospitalization History Pneumonia, elevated CO2 on Bipap was in ICU 08/2013 Hospitalization History Hypoxia, Exacerbation COPD, Chest pain 09/05/15 Hospitalization History suicidal ideations-[place] 12/28 Hospitalization History hypoxia--[facility] 02/13/2016 Hospitalization History shortness of breath at june 2016 Hospitalization History Shortness of breath at august 2016 Hospitalization History SOB, chest pain at 12/2016
--- OUTSIDE RECORDS SUMMARY | 2017-11-24 17:47 | XMS REPORT ---
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 [facility] [id number] [place] [address] 45701- 2442 22 Dec, 2014 [facility] [address] 78958- 3428 21 Dec, 2014 [facility] [id number] [place] [address] 82818- 6193 17 Dec, 2014 Affective disorder 296.90 [facility] [id number] [place] [address] 58988- 2189 14 Dec, 2014 [facility] [id number] [place] [address] 93295- 8257 10 Dec, 2014 Affective disorder 296.90 [facility] [id number] [place] [address] 73551 2545 04 Dec, 2014 [facility] [id number] [place] [address] 14945 2543 04 Dec, 2014 [facility] [id number] [place] [address] 03352- 2543 04 Dec, 2014 [facility] [id number] [place] [address] 98951- 254 03 Dec, 2014 [facility] [id number] [place] [address] 00724- 4150 Nov, Affective disorder 296.90 [facility] [address] [address] 2546 Nov, [facility] [id number] [place] [address] 50469 2546 Nov, Affective disorder 296.90 [facility] [id number] [place] [address] 58903 2546 Nov, Diarrhea 787.91 [facility] [id number] [place] [address] 35169 2546 Nov, [facility] [id number] [place] [address] 01668 2546 Nov, Diarrhea 787.91 [facility] [id number] [place] [address] 09728 2546 Nov, Diarrhea 787.91 and Hyperlipidemia 272.4 [facility] [id number] [place] [address] 36357 2546 Nov, Diarrhea 787.91 [facility] [id number] [place] [address] 15441 2546 Nov, Affective disorder 296.90 [facility] [address] [address] 2546 Nov, Affective disorder 296.90 [facility] [address] [address] 2546 Nov, Affective disorder 296.90 [facility] [address] [address] 2546 Nov, [facility] [id number] [place] [address] 65074 2546 Nov, [facility] [address] [address] 2546 Nov, [facility] [id number] [place] [address] 29941- 2134 Nov, Episodic mood disorder 296.90 [facility] [address] [address]- 5218 Nov, [facility] [id number] [place] [address] 28900- 7118 Nov, [facility] [id number] [place] [address] 82823- 0033 Nov, [facility] [id number] [place] [address] 05351- 5398 Nov, [facility] [id number] [place] [address] 51993- 6555 Nov, [facility] [id number] [place] [address] 48977- 5813 Nov, Lymphedema 457.1 ; Hyperlipidemia 272.4 ; Essential hypertension, benign 401.1 and Numbness of toes 782.0 [facility] [address] [address]- 0770 Nov, Episodic mood disorder 296.90 [facility] [address] [address]- 4601 Oct, [facility] [address] [address]- 3428 Oct, [facility] [address] [address]- 0832 Oct, [facility] [address] [address]- 2586 Oct, [facility] [address] [address]- 0173 Oct, [facility] [address] [address]- 6420 Oct, [facility] [address] [address]- 2706 Oct, [facility] [address] [facility] [id number] [address]- 6650 Oct, [facility] [address] 3734 Oct, Episodic mood disorder 296.90 [facility] [address] [facility] [id number] [place] [address]- 2770 30 Sep, 2014 [facility] [address] [facility] [id number] [place] [address]- 6780 Sep, [facility] [address] [facility] [id number] [place] [address]- 1685 Sep, [facility] [id number] [address]- 1573 Sep, [facility] [address] [place] [address]- 0769 Sep, [facility] [id number] [address]- 0714 Sep, Episodic mood disorder 296.90 [facility] [id number] [address]- 8279 Sep, Unspecified episodic mood disorder 296.90 [facility] [id number] [address]- 8144 Sep, [facility] [address] [address]- 6637 Sep, [facility] [id number] [address]- 0969 16 Sep, 2014 Episodic mood disorder 296.90 [facility] [address] [id number] [place] [address]- 9436 15 Sep, 2014 [facility] [address] [facility] [id number] [address]- 8591 15 Sep, 2014 [facility] [id number] [address]- 2876 Sep, [facility] [address] [address]- 5851 Sep, Hematemesis 578.0 and Vomiting 787.03 [facility] [id number] [place] [address] 93167- 4035 Sep, Episodic mood disorder 296.90 [facility] [id number] [place] [address] 27500- 0013 Sep, [facility] [id number] [place] [address] 83185- 9130 Sep, [facility] [id number] [place] [address] 53053- 7951 Sep, Diabetes mellitus without mention of complication, type II or unspecified type, not stated as uncontrolled 250.00 and Other chronic pain 338.29 [facility] [id number] [place] [address] 51588- 7653 Sep, Episodic mood disorder 296.90 [facility] [id number] [place] [address] 15627- 9721 Sep, [facility] [id number] [place] [address] 12495- 1284 Sep, Episodic mood disorder 296.90 [facility] [address] [address]- 8472 Sep, [facility] [address] [address]- 8078 August, [facility] [address] [address]- 3366 August, [facility] [id number] [place] [address] 94310- 5857 August, Episodic mood disorder 296.90 [facility] [address] [address]- 0670 August, [facility] [id number] [place] [address] 65531- 6768 August, Unspecified episodic mood disorder 296.90 [facility] [address] [id number] [place] [address]- 3283 August, Vomiting 787.03 [facility] [address] [facility] [id number] [place] 7716 August, [facility] [address] [facility] [id number] [place] [address]- 7099 August, [facility] [address] [facility] [id number] [place] [address]- 7465 August, [facility] [address] [id number] [place] [address]- 9424 August, [facility] [address] [id number] [place] [address]- 7944 August, [facility] [id number] [place] [address]- 5408 Jul, [facility] [address] [facility] [id number] [place] [address]- 5163 Jul, [facility] [address] [id number] [place] [address]- 1246 Jul, [facility] [address] [id number] [place] [address]- 0445 Jun, [facility] [address] [id number] [place] [address] Jun, [facility] [address] [facility] [id number] [place] [address] Jun, [facility] [address] [facility] [id number] [place] [address] Jun, [facility] [address] [facility] [id number] [place] [address] Jun, [facility] [address] [facility] [id number] [place] [address] Jun, [facility] [place] [facility] [address] [id number] [place] [address] Jun, [facility] [place] [facility] [address] [id number] [place] [address] Jun, [facility] [place] [facility] [address] [id number] [place] [address] Jun, [facility] [place] [facility] [address] [id number] [place] [address] Jun, [facility] [place] [facility] [address] [id number] [place] [address] Jun, [facility] [place] [facility] [address] [id number] [place] [address] Jun, [facility] [place] [facility] [address] [id number] [place] [address]- [address] Jun, [facility] [place] [facility] [address] [id number] [place] [address]- [address] Jun, [facility] [place] [facility] [address] [id number] [place] [address]- [address] Jun, [facility] [place] [facility] [address] [id number] [place] [address]- [address] Jun, [facility] [place] [facility] [address] [id number] [place] [address]- [address] Jun, [facility] [place] [facility] [address] [id number] [place] [address]- [address] Jun, [facility] [place] [facility] [address] [id number] [place] [address] Jun, [facility] [place] [facility] [address] [id number] [place] [address]- [address] Jun, [facility] [place] [facility] [address] [id number] [place] [address] Jun, [facility] [place] [facility] [address] [id number] [place] [address]- [address] 20 Jun, 2014 [facility] [place] [facility] [address] [id number] [place] [address]- [address] 20 Jun, 2014 [facility] [place] [facility] [address] [id number] [place] [address]- [address] 20 Jun, 2014 [facility] [place] [facility] [address] [id number] [place] [address]- [address]298 20 Jun, 2014 [facility] [place] [facility] [address] [id number] [place] [address] 19 Jun, 2014 [facility] [place] [facility] [address] [id number] [place] [address]- [address] 19 Jun, 2014 [facility] [place] [facility] [address] [id number] [place] [address]- [address] 18 Jun, 2014 [facility] [place] [facility] [address] [id number] [place] [address]- [address]17 18 Jun, 2014 [facility] [place] [facility] [address] [id number] [place] [address]- [address] 17 Jun, 2014 [facility] [place] [facility] [address] [id number] [place] [address]- [address]85 17 Jun, 2014 [facility] [place] [facility] [address] [id number] [place] [address]- [address] 16 Jun, 2014 [facility] [place] [facility] [address] [id number] [place] [address]- [address] 16 Jun, 2014 [facility] [place] [facility] [address] [id number] [place] [address]- [address] 16 Jun, 2014 [facility] [place] [facility] [address] [id number] [place] [address]- 1326 16 Jun, 2014 [facility] [place] [facility] [address] [id number] [place] [address]- 8099 16 Jun, 2014 [facility] [place] [facility] [address] [id number] [place] [address]- [address]885 16 Jun, 2014 [facility] [place] [facility] [address] [id number] [place] [address]- [address] 13 Jun, 2014 [facility] [facility] [address] [id number] [place] [address] Jun, [facility] [place] [facility] [address] [id number] [place] [address] 5111 Jun, [facility] [place] [facility] [address] [id number] [place] [address] 0358 Jun, [facility] [place] [facility] [address] [id number] [place] [address] 2577 Jun, [facility] [place] [facility] [address] [id number] [place] [address] 4774 Jun, 2014 [facility] [place] [facility] [address] [id number] [place] [address]- 0251 Jun, 2014 [facility] [place] [facility] [address] [id number] [place] [address]- 4261 Jun, [facility] [place] [facility] [address] [id number] [place] [address]- 9488 Jun, [facility] [place] [facility] [address] [id number] [place] [address] 6841 Jun, [facility] [place] [facility] [address] [id number] [place] [address]- 1656 Jun, 2014 [facility] [place] [facility] [address] [id number] [place] [address]- 6019 Jun, 2014 [facility] [place] [facility] [address] [id number] [place] [address]- 3691 Jun, [facility] [place] [facility] [address] [id number] [place] [address]- 7560 Jun, 2014 [facility] [place] [facility] [address] [id number] [place] [address]- 4568 Jun, [facility] [place] [facility] [address] [id number] [place] [address]- 3050 Jun, [facility] [place] [facility] [address] [id number] [place] [address]- 4810 Jun, [facility] [place] [address] [facility] [id number] [place] [address]- 1618 Jun, [facility] [place] [facility] [address] [facility] [id number] [place] [address]- 1566 Jun, [facility] [place] [facility] [address] [facility] [id number] [place] [address]- 6229 Jun, [facility] [place] [facility] [address] [facility] [id number] [place] [address]- 5060 May, 2014 [facility] [place] [facility] [address] [facility] [id number] [place] [address]- 2635 May, 2014 [facility] [place] [facility] [address] [facility] [id number] [place] [address]- 9940 May, 2014 [facility] [place] [facility] [address] [facility] [id number] [place] [address]- 0693 May, 2014 [facility] [place] [facility] [address] [facility] [id number] [place] [address]- 0221 May, 2014 [facility] [place] [facility] [address] [facility] [id number] [place] [address]- 1446 May, 2014 [facility] [facility] [address] [facility] [id number] [place] [address]- 2043 May, 2014 [facility] [facility] [address] [facility] [id number] [place] [address]- 2549 May, 2014 [facility] [place] [facility] [address] [facility] [id number] [place] [address]- 0494 May, 2014 [facility] [address] [facility] [id number] [place] [address]- 4686 May, 2014 [facility] [facility] [address] [facility] [id number] [place] [address]- 6028 18 May, 2014 [facility] [place] [facility] [address] [id number] [place] [address]- 7783 18 May, 2014 [facility] [place] [facility] [address] [facility] [id number] [place] [address]- 3666 May, 2014 [facility] [facility] [address] [facility] [id number] [place] [address]- 4867 May, 2014 [facility] [place] [facility] [address] [facility] [id number] [place] [address]- 2211 May, 2014 [facility] [place] [facility] [address] [facility] [id number] [place] [address]- 4397 May, 2014 [facility] [address] [facility] [id number] [place] [address]- 4851 May, 2014 [facility] [facility] [address] [facility] [id number] [place] [address]- 6788 May, 2014 [facility] [address] [facility] [id number] [place] [address]- 3897 May, 2014 [facility] [address] [facility] [id number] [place] [address]- 6422 May, 2014 [facility] [address] [facility] [id number] [place] [address]- 7178 May, 2014 [facility] [address] [facility] [id number] [place] [address]- 3268 May, 2014 [facility] [address] [facility] [id number] [place] [address]- 254 May, 2014 [facility] [address] [facility] [id number] [place] [address]- 7667 May, 2014 [facility] [facility] [address] [facility] [id number] [place] [address]- 6229 May, 2014 [facility] [address] [facility] [id number] [place] [address]- 3262 May2014 [facility] [address] [id number] [place] [address]- 7718 May, [facility] [address] [id number] [place] [address]- 3267 Apr, [facility] [address] [id number] [place] [address]- 3173 Apr, [facility] [facility] [address] [id number] [place] [address]- 3830 Apr, [facility] [address] [id number] [place] [address]- 1856 Apr, [facility] [address] [id number] [place] [address]- 3668 Apr, [facility] [address] [id number] [place] [address]- 3048 Apr, [facility] [address] [id number] [place] [address]- 1285 Apr, [facility] [address] [id number] [place] [address]- 2001 Apr, [facility] [address] [id number] [place] [address]- 5376 Apr, [facility] [address] [id number] [place] [address]- 4620 Apr, [facility] [address] [id number] [place] [address]- 0878 Apr, [facility] [address] [id number] [place] [address]- 2735 Apr, [facility] [address] [id number] [place] [address]- 1177 Apr, [facility] [address] [id number] [place] [address]- 0670 Apr, [facility] [address] [id number] [place] [address]- 6424 Apr, [facility] [facility] [address] [id number] [place] [address]- 0434 Apr, [facility] [address] [id number] [place] [address]- 8836 Apr, [facility] [address] [id number] [place] [address]- 4786 Apr, [facility] [address] [id number] [place] [address]- 6786 Apr, [facility] [address] [id number] [place] [address]- 0593 Apr, [facility] [address] [id number] [place] [address]- 5977 Mar, [facility] [facility] [address] [id number] [place] [address]- 7103 Mar, [facility] [address] [id number] [place] [address]- 3938 Mar, [facility] [address] [id number] [place] [address]- 7305 Mar, [facility] [place] [facility] [address] [id number] [place] [address]- 3658 Mar, [facility] [address] [id number] [place] [address]- 3348 Mar, [facility] [address] [id number] [place] [address]- 1967 Mar, [facility] [address] [id number] [place] [address]- 1454 Mar, [facility] [address] [id number] [place] [address]- 3078 15 Mar, 2014 [facility] [address] [id number] [place] [address]- 9559 15 Mar, 2014 [facility] [address] [id number] [place] [address]- 8661 15 Mar, 2014 [facility] [address] [id number] [place] [address]- 7736 15 Mar, 2014 [facility] [address] [id number] [place] [address]- 1690 Mar, [facility] [address] [id number] [place] [address]- 2891 Mar, [facility] [address] [id number] [place] [address]- 4502 Mar, [facility] [address] [id number] [place] [address]- 0071 Mar, [facility] [address] [id number] [place] [address]- 9081 Feb, [facility] [address] [id number] [place] [address]- 6110 Feb, [facility] [address] [id number] [place] [address]- 9315 Feb, [facility] [address] [id number] [place] [address]- 6253 Feb, [facility] [address] [facility] [id number] [place] [address]- 7678 Feb, [facility] [address] [id number] [place] [address]- 7759 Feb, [facility] [address] [id number] [place] [address]- 5245 Feb, [facility] [address] [id number] [place] [address]- 1880 Feb, [facility] [address] [id number] [place] [address]- 2652 Feb, [facility] [address] [id number] [place] [address]- 3612 Feb, [facility] [address] [id number] [place] [address]- 6801 17 Feb, 2014 [facility] [address] [id number] [place] [address]- 8507 Feb, [facility] [address] [id number] [place] [address]- 7827 Feb, [facility] [address] [id number] [place] [address]- 3442 Feb, [facility] [address] [id number] [place] [address]- 8429 Feb, [facility] [address] [id number] [place] [address]- 1170 Feb, [facility] [address] [id number] [place] [address]- 7719 Feb, [facility] [address] [id number] [place] [address]- 9073 Feb, [facility] [address] [id number] [place] [address]- 5655 Feb, [facility] [address] [id number] [place] [address]- 7413 Feb, [facility] [address] [id number] [place] [address]- 4840 Feb, [facility] [address] [id number] [place] [address]- 1500 Jan, [facility] [address] [id number] [place] [address]- 8760 Jan, [facility] [place] [facility] [address] [id number] [place] [address]- 1723 Jan, [facility] [address] [id number] [place] [address]- 7220 Jan, [facility] [address] [id number] [place] [address]- 5947 24 Jan, 2014 [facility] [address] [id number] [place] [address]- 7821 24 Jan, 2014 [facility] [address] [id number] [place] [address]- 2205 Jan, [facility] [address] [id number] [place] [address]- 4981 21 Jan, 2014 [facility] [place] [address] [id number] [place] [address]- 9825 20 Jan, 2014 [facility] [place] [address] [id number] [place] [address]- 2260 20 Jan, 2014 [facility] [address] [id number] [place] [address]- 3315 17 Jan, 2014 [facility] [address] [id number] [place] [address]- 8592 17 Jan, 2014 [facility] [address] [id number] [place] [address]- 9608 17 Jan, 2014 [facility] [address] [id number] [place] [address]- 3200 17 Jan, 2014 [facility] [address] [id number] [place] [address]- 8620 15 Jan, 2014 [facility] [address] [id number] [place] [address]- 6048 15 Jan, 2014 [facility] [address] [id number] [place] [address]- 7694 14 Jan, 2014 [facility] [address] [id number] [place] [address]- 3224 14 Jan, 2014 [facility] [facility] [address] [id number] [place] [address]- 3795 13 Jan, 2013 [facility] [place] [facility] [address] [id number] [place] [address]- 9922 13 Jan, 2013 [facility] [place] [facility] [address] [id number] [place] [address]- 1882 13 Jan, 2013 [facility] [place] [facility] [address] [id number] [place] [address]- 5731 13 Jan, 2014 [facility] [place] [facility] [address] [id number] [place] [address]- 3846 10 Jan, 2013 [facility] [place] [facility] [address] [id number] [place] [address]- 6527 02 Jan, 2014 [facility] [address] [id number] [place] [address]- 7665 02 Jan, 2014 [facility] [address] [id number] [place] [address]- 6751 25 Dec, 2013 [facility] [place] [facility] [address] [id number] [place] [address]- 5515 25 Dec, 2013 [facility] [place] [facility] [address] [id number] [place] [address]- 4428 23 Dec, 2013 [facility] [place] [facility] [address] [id number] [place] [address]- 2135 23 Sep, 2013 [facility] [place] [facility] [address] [id number] [place] [address]- 4075 19 Dec, 2013 [facility] [place] [facility] [address] [id number] [place] [address]- 2681 19 Sep, 2013 [facility] [place] [facility] [address] [id number] [place] [address]- 2548 17 Sep, 2013 [facility] [place] [facility] [address] [id number] [place] [address]- 2543 17 Sep, 2013 [facility] [place] [facility] [address] [id number] [place] [address]- 2543 09 Sep, 2013 [facility] [place] [facility] [address] [id number] [place] [address]- 2546 09 Sep, 2013 [facility] [place] [facility] [address] [id number] [place] [address]- 2523 08 Sep, 2013 [facility] [place] [facility] [address] [id number] [place] [address]- 4240 08 Dec, 2013 [facility] [place] [facility] [address] [id number] [place] [address]- 6944 Dec, 2013 [facility] [place] [facility] [address] [id number] [place] [address]- 1145 Dec, 2013 [facility] [place] [facility] [address] [id number] [place] [address]- 2525 Dec, 2013 [facility] [place] [facility] [address] [id number] [place] [address]- 0484 Dec, 2013 [facility] [place] [facility] [address] [id number] [place] [address]- 2076 Dec, 2013 [facility] [place] [facility] [address] [id number] [place] [address]- 3915 Dec, 2013 [facility] [place] [facility] [address] [id number] [place] [address]- 1330 Nov, [facility] [place] [facility] [address] [id number] [place] [address]- 4034 Nov, [facility] [place] [facility] [address] [id number] [place] [address]- 0852 Nov, [facility] [place] [facility] [address] [id number] [place] [address]- 0834 Nov, [facility] [place] [facility] [address] [id number] [place] [address]- 3356 Nov, [facility] [place] [facility] [address] [id number] [place] [address]- 2899 Nov, [facility] [place] [facility] [address] [id number] [place] [address]- 0035 Nov, [facility] [place] [facility] [address] [id number] [place] [address]- 7666 Nov, [facility] [place] [facility] [address] [id number] [place] [address]- 8965 Nov, [facility] [place] [facility] [address] [id number] [place] [address]- 0164 Nov, [facility] [place] [facility] [address] [id number] [place] [address]- 1603 Nov, [facility] [place] [facility] [address] [id number] [place] [address]- 3600 Nov, [facility] [place] [facility] [address] [id number] [place] [address]- 9739 Oct, [facility] [place] [facility] [address] [id number] [place] [address]- 2954 Oct, [facility] [place] [facility] [address] [id number] [place] [address]- 1251 Oct, [facility] [place] [facility] [address] [id number] [place] [address]- 8095 Oct, [facility] [place] [facility] [address] [id number] [place] [address]- 0743 Oct, [facility] [place] [facility] [address] [id number] [place] [address]- 1440 Oct, [facility] [place] [facility] [address] [id number] [place] [address]- 4445 Oct, [facility] [place] [facility] [address] [id number] [place] [address]- 9729 Oct, [facility] [place] [facility] [address] [id number] [place] [address]- 7542 Oct, [facility] [place] [facility] [address] [id number] [place] [address]- 5374 Oct, [facility] [place] [facility] [address] [id number] [place] [address]- 7966 Oct, [facility] [place] [facility] [address] [id number] [place] [address]- 3182 Oct, [facility] [place] [facility] [address] [id number] [place] [address]- 7082 14 Oct, 2013 [facility] [place] [facility] [address] [id number] [place] [address]- 4219 14 Oct, 2013 [facility] [place] [facility] [address] [id number] [place] [address]- 9142 13 Oct, 2013 [facility] [place] [facility] [address] [id number] [place] [address]- 6548 13 Oct, 2013 [facility] [place] [facility] [address] [id number] [place] [address]- 1165 2013 [facility] [place] [facility] [address] [id number] [place] [address]- 3069 27 Sep, 2013 [facility] [place] [facility] [address] [id number] [place] [address]- 9105 27 Sep, 2013 [facility] [place] [facility] [address] [id number] [place] [address]- 7970 20 Sep, 2013 [facility] [place] [facility] [address] [id number] [place] [address]- 7250 20 Sep, 2013 [facility] [place] [facility] [address] [id number] [place] [address]- 5661 18 Sep, 2013 [facility] [place] [facility] [address] [id number] [place] [address]- 0155 18 Sep, 2013 [facility] [place] [facility] [address] [id number] [place] [address]- 2173 17 Sep, 2013 [facility] [place] [facility] [address] [id number] [place] [address]- 2502 17 Sep, 2013 [facility] [place] [facility] [address] [id number] [place] [address] Sep, [facility] [place] [facility] [address] [id number] [place] [address] 11 Sep, 2013 [facility] [place] [facility] [address] [id number] [place] [address] Sep, [facility] [place] [facility] [address] [id number] [place] [address] Sep, [facility] [place] [facility] [address] [id number] [place] [address] Sep, [facility] [place] [facility] [address] [id number] [place] [address] Sep, [facility] [place] [facility] [address] [id number] [place] [address] Sep, [facility] [place] [facility] [address] [id number] [place] [address] Sep, [facility] [place] [facility] [address] [id number] [place] [address] Sep, [facility] [place] [facility] [address] [id number] [place] [address] Sep, [facility] [place] [facility] [address] [id number] [place] [address]88 Sep, [facility] [place] [facility] [address] [id number] [place] [address] Sep, [facility] [place] [facility] [address] [id number] [place] [address] 65[address] Sep, [facility] [place] [facility] [address] [id number] [place] [address] 6561 Sep, [facility] [place] [facility] [address] [id number] [place] [address] August, [facility] [place] [facility] [address] [id number] [place] [address] August, [facility] [place] [facility] [address] [id number] [place] [address]258 August, [facility] [place] [facility] [address] [id number] [place] [address]863 August, [facility] [place] [facility] [address] [id number] [place] [address]- [address] August, [facility] [address] [id number] [place] [address] August, [facility] [address] [id number] [place] [address] August, [facility] [address] [id number] [place] [address]161 August, [facility] [address] [id number] [place] [address] August, [facility] [address] [id number] [place] [address] August, [facility] [address] [id number] [place] [address]25 August, [facility] [address] [id number] [place] [address] Jul, [facility] [address] [id number] [place] [address] 8467 Jul, [facility] [address] [id number] [place] [address]- 6374 Jul, [facility] [address] [id number] [place] [address]- [address]162 Jul, [facility] [place] [facility] [address] [id number] [place] [address]- [address]49 Jul, [facility] [address] [id number] [place] [address]- [address]283 Jul, [facility] [place] [facility] [address] [id number] [place] [address]- 49[address] Jul, [facility] [place] [facility] [address] [id number] [place] [address]180 Jul, [facility] [place] [facility] [address] [id number] [place] [address] Jul, [facility] [place] [facility] [address] [id number] [place] [address]- 4742 18 Jul, 2013 [facility] [place] [facility] [address] [id number] [place] [address]- [address]25 16 Jul, 2013 [facility] [place] [facility] [address] [id number] [place] [address]- [address]370 Jul, [facility] [place] [facility] [address] [id number] [place] [address] 1501 Jul, [facility] [place] [facility] [address] [id number] [place] [address]- 7168 Jul, [facility] [place] [facility] [address] [id number] [place] [address]- 2364 Jul, [facility] [place] [facility] [address] [id number] [place] [address]- 8015 Jul, [facility] [place] [facility] [address] [id number] [place] [address]- 6379 Jul, [facility] [place] [facility] [address] [id number] [place] [address]- [address]696 Jul, [facility] [place] [facility] [address] [id number] [place] [address]- [address]249 Jul, [facility] [place] [facility] [address] [id number] [place] [address]- 6780 Jul, [facility] [place] [facility] [address] [id number] [place] [address]- 3141 Jul, [facility] [place] [facility] [address] [id number] [place] [address]- 5062 Jul, [facility] [place] [facility] [address] [id number] [place] [address]- 1202 Jul, [facility] [place] [facility] [address] [id number] [place] [address]- 0486 Jun, [facility] [place] [facility] [address] [id number] [address] 1614 Jun, [facility] [place] [facility] [address] [id number] [place] [address]- 0551 Jun, [facility] [place] [facility] [address] [id number] [place] [address]- 7632 Jun, [facility] [place] [facility] [address] [id number] [place] [address]- 7283 Jun, [facility] [place] [facility] [address] [id number] [place] [address]- 0213 Jun, [facility] [place] [facility] [address] [id number] [place] [address]- 8196 Jun, [facility] [place] [facility] [address] [id number] [place] [address]- 7523 Jun, [facility] [place] [facility] [address] [id number] [place] [address]- 5515 Jun, [facility] [place] [facility] [address] [id number] [place] [address]- 4129 Jun, [facility] [place] [facility] [address] [id number] [place] [address]- 0618 Jun, [facility] [place] [facility] [address] [id number] [place] [address]- 8585 Jun, [facility] [place] [facility] [address] [id number] [place] [address]- [address]193 18 May, 2013 [facility] [place] [facility] [address] [id number] [place] [address]- 6178 May, [facility] [place] [facility] [address] [id number] [place] [address]- 8382 Apr, [facility] [place] [facility] [address] [id number] [place] [address]- 4629 Apr, [facility] [place] [facility] [address] [id number] [place] [address]- 1242 Apr, [facility] [place] [facility] [address] [id number] [place] [address]- 9734 Apr, [facility] [place] [facility] [address] [id number] [place] [address]- 6288 Apr, [facility] [place] [facility] [address] [id number] [place] [address]- 5001 Apr, [facility] [place] [facility] [address] [id number] [place] [address]- 9334 Apr, [facility] [place] [facility] [address] [id number] [place] [address]- [address]321 Apr, [facility] [place] [facility] [address] [id number] [place] [address]- 9400 Apr, [facility] [place] [facility] [address] [id number] [place] [address]- 4255 Apr, [facility] [place] [facility] [address] [id number] [place] [address]- 1954 Apr, [facility] [place] [facility] [address] [id number] [place] [address]- 3886 Mar, [facility] [place] [facility] [address] [id number] [place] [address]- 4137 Mar, [facility] [facility] [address] [id number] [place] [address] Mar, [facility] [place] [facility] [address] [id number] [place] [address] 4123 Mar, [facility] [place] [facility] [address] [id number] [place] [address] 7232 Feb, [facility] [place] [facility] [address] [id number] [place] [address] Feb, [facility] [place] [facility] [address] [id number] [place] [address] 0142 Feb, [facility] [place] [facility] [address] [id number] [place] [address] 2641 Feb, [facility] [place] [facility] [address] [id number] [place] [address] 1506 Feb, [facility] [place] [address] [id number] [place] [address] Feb, [facility] [address] [id number] [place] [address] 0046 Feb, [facility] [address] [id number] [place] [address]26 Feb, [facility] [facility] [address] [id number] [place] [address] 2414 Feb, [facility] [address] [id number] [place] [address] 6[address] Feb, [facility] [address] [id number] [place] [address] 8697 Feb, [facility] [address] [id number] [place] [address] 0018 Jan, [facility] [address] [id number] [place] [address]- 5847 Jan, [facility] [address] [id number] [place] [address]- 6225 Jan, [facility] [address] [id number] [place] [address] 3060 Jan, [facility] [address] [id number] [place] [address]- 4771 Jan, [facility] [address] [id number] [place] [address]- 1064 Jan, [facility] [address] [id number] [place] [address]- 0556 Jan, [facility] [address] [id number] [place] [address]- 7223 Jan, [facility] [address] [id number] [place] [address]- 2787 30 Sep, 2012 [facility] [address] [id number] [place] [address] 2546 25 Sep, 2012 [facility] [address] [id number] [place] [address] 2546 18 Sep, 2012 [facility] [address] [id number] [place] [address] 2546 17 Sep, 2012 [facility] [address] [id number] [place] [address] 2546 17 Sep, 2012 [facility] [address] [id number] [place] [address]- 8930 16 Sep, 2012 [facility] [address] [id number] [place] [address]- 1049 13 Dec, 2012 [facility] [address] [id number] [place] [address]- 7826 11 Dec, 2012 [facility] [address] [id number] [place] [address]- 2548 05 Dec, 2012 [facility] [address] [id number] [place] [address] 2543 04 Dec, 2012 [facility] [address] [id number] [place] [address]- 9751 30 Nov, 2012 [facility] [address] [id number] [place] [address] 2545 29 Nov, 2012 [facility] [address] [id number] [place] [address]- 2548 22 Nov, 2012 [facility] [address] [id number] [place] [address] 2541 16 Nov, 2012 [facility] [address] [id number] [place] [address]- 254 14 Nov, 2012 [facility] [address] [id number] [place] [address]- 7198 Nov, [facility] [address] [id number] [place] [address]- 2223 Nov, [facility] [address] [id number] [place] [address]- 2989 Oct, [facility] [address] [id number] [place] [address]- 9533 Oct, [facility] [address] [id number] [place] [address]- 7987 Oct, [facility] [address] [id number] [place] [address]- 0116 Oct, [facility] [address] [id number] [place] [address]- 1572 Oct, [facility] [address] [id number] [place] [address]- 4347 Oct, [facility] [address] [id number] [place] [address]- 5670 Sep, [facility] [address] [id number] [place] [address]- 2250 Sep, [facility] [address] [id number] [place] [address]- 2100 Sep, [facility] [address] [id number] [place] [address]- 7451 14 Sep, 2012 [facility] [address] [id number] [place] [address]- 9241 13 Sep, 2012 [facility] [address] [id number] [place] [address]- 0396 10 Sep, 2012 [facility] [address] [id number] [place] [address]- 6476 07 Sep, 2012 [facility] [address] [id number] [place] [address]- 2695 06 Sep, 2012 [facility] [address] [id number] [place] [address]- 5802 Sep, [facility] [address] [id number] [place] [address]- 8020 August, [facility] [address] [id number] [place] [address]- 8892 August, [facility] [address] [id number] [place] [address]- 8670 August, [facility] [address] [id number] [place] [address]- 3018 August, [facility] [address] [id number] [place] [address] 7366 August, [facility] [address] [id number] [place] [address] August, [facility] [address] [id number] [place] [address] 3993 August, [facility] [address] [id number] [place] [address] 4053 August, [facility] [address] [id number] [place] [address]- 2361 Jul, [facility] [address] [id number] [place] [address]- 1092 Jul, [address] [id number] Jul [facility] [address] [id number] [place] [address] 5716 Jun, [facility] [address] [id number] [place] [address]- 9630 Jun, [facility] [address] [id number] [place] [address]- 5341 Jun, [facility] [address] [id number] [place] [address]- 7723 Jun, [facility] [address] [id number] [place] [address]- 8820 Jun, [facility] [address] [id number] [place] [address]- 9308 Jun, [facility] [address] [id number] [place] [address]- 6536 May, [facility] [address] [id number] [place] [address]- 3626 May, [facility] [address] [id number] [place] [address]- 7350 May, [facility] [address] [id number] [place] [address]- 7859 May, [facility] [address] [id number] [place] [address]- 0366 May, [facility] [address] [id number] [place] [address]- 0782 Apr, [facility] [address] [id number] [place] [address]- 9051 Apr, [facility] [address] [id number] [place] [address]- 8492 Apr, [facility] [address] [id number] [place] [address]- 7849 Apr, [facility] [address] [id number] [place] [address]- 5994 Apr, [facility] [address] [id number] [place] [address]- 9275 Apr, [facility] [address] [id number] [place] [address]- 4568 Mar, [facility] [address] [id number] [place] [address] 2546 Mar, [facility] [address] [id number] [place] [address]- 3257 Mar, [facility] [address] [id number] [place] [address]- 4335 Mar, [facility] [address] [id number] [place] [address]- 5406 Mar, [facility] [address] [id number] [place]68 Mar, [facility] [address] [id number] [place] [address]- 9411 Mar, [facility] [address] [id number] [place] [address]- 1736 Mar, [facility] [address] [id number] [place] [address]- 6187 Mar, [facility] [address] [id number] [place] [address]- 0569 Mar, [facility] [address] [id number] [place] [address]- 1083 Mar, [facility] [address] [id number] [place] [address]- 9033 Feb, [facility] [address] [id number] [place] [address]- 6536 Feb, [facility] [address] [id number] [place] [address]- 1261 Feb, [facility] [address] [id number] [place] [address]- 5357 Feb, [facility] [address] [id number] [place] [address]- 8733 Feb, [facility] [address] [id number] [place] [address]- 6048 16 Feb, 2012 [facility] [address] [id number] [place]27 16 Feb, 2012 [facility] [address] [id number] [place] [address]- 2019 Feb, [facility] [address] [id number] [place] [address]- 0288 Feb, [facility] [address] [id number] [place] [address]- 1828 Feb, [facility] [address] [id number] [place] [address]- 5385 Feb, [facility] [address] [id number] [place]89 Jan, [facility] [address] [id number] [place]27 Jan, [facility] [address] [id number] [place] [address]- 1965 Jan, [facility] [address] [id number] [place] [address]- 9127 Jan, [facility] [address] [id number] [place] [address]- 0556 Jan, [facility] [address] [id number] [place] [address]- 6109 Jan, [facility] [address] [id number] [place] [address]- 6213 Jan, [facility] [address] [id number] [place] [address]- 0229 24 Dec, 2011 [facility] [address] [id number] [place] [address]- 1874 17 Dec, 2011 [facility] [address] [id number] [place] [address]- 9701 13 Dec, 2011 [facility] [address] [id number] [place] [address]- 0083 12 Dec, 2011 [facility] [address] [id number] [place] [address]- 2164 Nov, [facility] [address] [id number] [place] [address]- 2655 Nov, [facility] [address] [id number] [place] [address]- 2413 Nov, [facility] [address] [id number] [place] [address]- 7666 Nov, [facility] [address] [id number] [place] [address]- 6476 14 Nov, 2011 [facility] [address] [id number] [place] [address]- 6098 Nov, [facility] [address] [id number] [place] [address]- 5870 Nov, [facility] [address] [id number] [place] [address]- 9421 Nov, [facility] [address] [id number] [place] [address]- 6768 Nov, [facility] [address] [id number] [place] [address]- 9021 Nov, [facility] [address] [id number] [place] [address]- 1828 Nov, [facility] [address] [id number] [place] [address]- 5486 Nov, [facility] [address] [id number] [place] [address]- 5896 Nov, [facility] [address] [id number] [place] [address]- 1461 Oct, [facility] [address] [id number] [place] [address]- 8388 Oct, [facility] [address] [id number] [place] [address]- 1396 Oct, [facility] [address] [id number] [place] [address]- 2366 Oct, [facility] [address] [id number] [place] [address]- 8370 Oct, [facility] [address] [id number] [place] [address]- 2866 Oct, [facility] [address] [id number] [place] [address]- 7230 Oct, [facility] [address] [id number] [place] [address]- 1271 Oct, [facility] [facility] [address] [id number] [place] [address]- 3894 Oct, [facility] [address] [id number] [place] [address]- 2354 Sep, [facility] [address] [id number] [place] [address]- 1420 Sep, [facility] [address] [id number] [place] [address]- 8798 Sep, [facility] [facility] [address] [id number] [place] [address]- 7240 Sep, [facility] [place] [facility] [address] [id number] [place] [address]- 6392 Sep, [facility] [place] [facility] [address] [id number] [place] [address]- 8923 Sep, [facility] [place] [facility] [address] [id number] [place] [address]- 2534 Sep, [facility] [place] [facility] [address] [id number] [place] [address]- 4622 Sep, [facility] [place] [facility] [address] [id number] [place] [address]- 2212 August, [facility] [place] [facility] [address] [id number] [place] [address]- 8489 August, [facility] [place] [facility] [address] [id number] [address]- 8945 August, [facility] [address] [id number] [address]- 4144 August, [facility] [address] [id number] 7593 August, [facility] [id number] [address]- 9116 August, [facility] [id number] [address]- 8202 August, [facility] [id number] [address]897 August, [facility] [id number] [address]- 4553 August, [facility] [id number] [address]- 3544 August, [facility] [address] [id number] [address]- 7968 August, [facility] [id number] [address]- 6268 August, [facility] [address] [id number] [address]- 1236 Oct, IMMUNIZATIONS No Known Immunizations SOCIAL HISTORY Never Assessed REASON FOR VISIT nystatin refill PLAN OF CARE VITAL SIGNS MEDICATIONS Unknown [...] Surgical History bladder surgery Hospitalization History Via [facility] for right groin pain 05/2011 Hospitalization History Via [facility] for wound on buttocks 08/2012 Hospitalization History Via [facility], hypoxia secondary to pneumonia 12/02-12/09 Hospitalization History Pneumonia, elevated CO2 on Bipap was in ICU 08/2013 Hospitalization History Hypoxia, Exacerbation COPD, Chest pain 09/05/15 Hospitalization History suicidal ideations-[facility] 12/28 Hospitalization History hypoxia--[facility] 02/13/2016 Hospitalization History shortness of breath at june 2016 Hospitalization History Shortness of breath at august 2016 Hospitalization History SOB, chest pain at 12/2016
--- OUTSIDE RECORDS SUMMARY | 2017-11-24 17:47 | XMS REPORT ---
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 Name Role Phone KELSEY HESSY Unavailable PROBLEMS Type Condition ICD9-CM Code [id number] Code Onset Dates Condition Status SNOMED Code Problem Primary insomnia F51.01 Active 217667701 Problem Type 2 diabetes mellitus with hyperglycemia E11.65 Active 57229142 Problem Major depressive disorder, recurrent, unspecified F33.9 Active 765029642 Problem Acute and chronic respiratory failure with hypoxia J96.21 Active [id number] Problem Microalbuminuria R80.9 Active 661156833 Problem Dysphagia, unspecified type R13.10 Active 90945936 Problem 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 Active 322326767280 Problem Morbid obesity with alveolar hypoventilation E66.2 Active 633007096 Problem Chronic tension-type headache, intractable G44.221 Active 673620422 Problem Type 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 Active 34941573 Problem MRSA (methicillin resistant Staphylococcus aureus) A49.02 Active 179229836 Problem Recurrent cellulitis L03.90 Active 663637372 Problem Chronic diarrhea K52.9 Active 734402998 Problem Chronic nausea R11.0 Active 074321416 Problem Gastroesophageal reflux disease, esophagitis presence not specified K21.9 Active 960589267 Problem Tinnitus of both ears H93.13 Active 4298179172148 Problem Essential hypertension I10 Active 21092004 Problem Anxiety F41.9 Active 51333760 Problem Lymphedema I89.0 Active 262330006 Problem Hypertriglyceridemia E78.1 Active 733253236 Problem Meralgia paresthetica, unspecified laterality G57.10 Active 62114413 Problem Obstructive sleep apnea G47.33 Active 49658346 Problem Low back pain M54.5 Active 493587989 ALLERGIES No Known Allergies SOCIAL HISTORY No smoking Hx information available PLAN OF CARE VITAL SIGNS MEDICATIONS No Known Medications RESULTS No Results PROCEDURES No Known procedures IMMUNIZATIONS No Known Immunizations
--- OUTSIDE RECORDS SUMMARY | 2017-11-24 17:48 | XMS REPORT ---
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 [id number] [place] [address] 47996- 8662 August, Episodic mood disorder 296.90 [facility] [address] [address]- 8405 August, [facility] [id number] [place] [address] 91878- 0413 August, Unspecified episodic mood disorder 296.90 [facility] [address] [address]- 1127 August, Vomiting 787.03 [facility] [address] [address]- 1673 August, [facility] [address] [address]- 0299 August, [facility] [address] [address]- 1344 August, [facility] [address] [address]- 2499 August, [facility] [address] [address]- 2546 August, [facility] [place] [facility] [address] [id number] [place] [address]- 3199 28 Jul, 2014 [facility] [place] [facility] [address] [id number] [place] [address]- 0616 Jul, [facility] [place] [facility] [address] [id number] [place] [address]- 9362 Jul, [facility] [place] [facility] [address] [id number] [place] [address]- 5382 30 Jun, 2014 [facility] [place] [facility] [address] [id number] [place] [address]- 7401 Jun, [facility] [place] [facility] [address] [id number] [place] [address]- 7859 Jun, [facility] [place] [facility] [address] [id number] [place] [address]- 0088 Jun, [facility] [place] [facility] [address] [id number] [place] [address]- 1656 Jun, [facility] [place] [facility] [address] [id number] [place] [address]- 7871 Jun, [facility] [place] [facility] [address] [id number] [place] [address]- 8317 Jun, [facility] [place] [facility] [address] [id number] [place] [address]- 3262 Jun, [facility] [place] [facility] [address] [id number] [place] [address]- 5629 Jun, [facility] [place] [facility] [address] [id number] [place] [address]- 8684 Jun, [facility] [place] [facility] [address] [id number] [place] [address]- 3878 Jun, [facility] [place] [facility] [address] [id number] [place] [address]- 0397 Jun, [facility] [place] [facility] [address] [id number] [place] [address]- 8597 26 Jun, 2014 [facility] [place] [facility] [address] [id number] [place] [address]- 8442 26 Jun, 2014 [facility] [place] [facility] [address] [id number] [place] [address]- 2359 24 Jun, 2014 [facility] [place] [facility] [address] [id number] [place] [address]- 2240 Jun, [facility] [place] [facility] [address] [id number] [place] [address]- 8669 Jun, [facility] [place] [facility] [address] [id number] [place] [address]- 6227 Jun, [facility] [place] [facility] [address] [id number] [place] [address]- 6509 Jun, [facility] [place] [facility] [address] [id number] [place] [address]- 6364 Jun, [facility] [place] [facility] [address] [id number] [place] [address]- 4558 Jun, [facility] [place] [facility] [address] [id number] [place] [address]- 6575 Jun, [facility] [place] [facility] [address] [id number] [place] [address]- 7647 20 Jun, 2014 [facility] [place] [facility] [address] [id number] [place] [address]- 8321 20 Jun, 2014 [facility] [place] [facility] [address] [id number] [place] [address]- 3152 20 Jun, 2014 [facility] [place] [facility] [address] [id number] [place] [address]- 6776 19 Jun, 2014 [facility] [place] [facility] [address] [id number] [place] [address]- 9480 19 Jun, 2014 [facility] [place] [facility] [address] [id number] [place] 6683 18 Jun, 2014 [facility] [place] [facility] [address] [id number] [place] [address]- 2129 18 Jun, 2014 [facility] [place] [facility] [address] [id number] [place] [address]- 3766 17 Jun, 2014 [facility] [place] [facility] [address] [id number] [place] [address]- 7484 17 Jun, 2014 [facility] [place] [facility] [address] [id number] [place] [address]- 4765 16 Jun, 2014 [facility] [place] [facility] [address] [id number] [place] [address]- 6897 16 Jun, 2014 [facility] [place] [facility] [address] [id number] [place] [address]- 0373 16 Jun, 2014 [facility] [place] [facility] [address] [id number] [place] [address]- 2583 16 Jun, 2014 [facility] [place] [facility] [address] [id number] [place] [address]- 1237 16 Jun, 2014 [facility] [place] [facility] [address] [id number] [place] [address]- 2267 16 Jun, 2014 [facility] [place] [facility] [address] [id number] [place] [address]- 0730 13 Jun, 2014 [facility] [place] [facility] [address] [id number] [place] [address]- 1259 13 Jun, 2014 [facility] [place] [facility] [address] [id number] [place] [address]- 5515 12 Jun, 2014 [facility] [place] [facility] [address] [id number] [place] [address]- 7350 12 Jun, 2014 [facility] [place] [facility] [address] [id number] [place] [address]- 8017 09 Jun, 2014 [facility] [place] [facility] [address] [id number] [place] [address]- 4423 09 Jun, 2014 [facility] [place] [facility] [address] [id number] [address]- 7565 Jun, [facility] [place] [facility] [address] [id number] [place] [address]- 5793 Jun, [facility] [place] [facility] [address] [id number] [place] [address]- 6262 Jun, [facility] [place] [facility] [address] [facility] [id number] [place] [address]- 8704 Jun, [facility] [place] [facility] [address] [id number] [place] [address]- 7214 Jun, [facility] [place] [facility] [address] [id number] [place] [address]- 9906 Jun, [facility] [place] [facility] [address] [id number] [place] [address]- 0836 Jun, [facility] [place] [facility] [address] [facility] [id number] [place] [address]- 7502 Jun, [facility] [place] [facility] [address] [facility] [id number] [place] [address]- 1357 Jun, [facility] [place] [facility] [address] [id number] [place] [address]- 2735 Jun, [facility] [place] [facility] [address] [facility] [id number] [place] [address]- 9599 Jun, [facility] [place] [facility] [address] [id number] [place] [address]- 0209 Jun, [facility] [place] [facility] [address] [facility] [id number] [address]- 2669 Jun, [facility] [place] [facility] [address] [id number] [place] [address] Jun, [facility] [place] [facility] [address] [facility] [id number] [place] [address] May, [facility] [place] [facility] [address] [facility] [id number] [place] [address] May, [facility] [place] [facility] [address] [id number] [place] [address] May, 2014 [facility] [place] [facility] [address] [id number] [place] [address] May, 2014 [facility] [place] [facility] [address] [id number] [place] [address] May, 2014 [facility] [place] [facility] [address] [id number] [place] [address] May, 2014 [facility] [place] [facility] [address] [id number] [place] [address] May, 2014 [facility] [place] [facility] [address] [id number] [place] [address] May, 2014 [facility] [place] [facility] [address] [id number] [place] [address] May, 2014 [facility] [place] [facility] [address] [facility] [id number] [place] [address] May, 2014 [facility] [place] [facility] [address] [facility] [id number] [place] [address] 18 May, 2014 [facility] [place] [facility] [address] [facility] [id number] [place] [address] 18 May, 2014 [facility] [place] [facility] [address] [facility] [id number] [place] [address] 13 May, 2014 [facility] [place] [facility] [address] [facility] [id number] [place] [address] 13 May, 2014 [facility] [place] [facility] [address] [facility] [id number] [place] [address] May, 2014 [facility] [place] [facility] [address] [facility] [id number] [place] [address] May, 2014 [facility] [place] [facility] [address] [facility] [id number] [place] [address] May, 2014 [facility] [place] [facility] [address] [facility] [id number] [place] [address] May, 2014 [facility] [place] [facility] [address] [id number] [place] [address] May, 2014 [facility] [place] [facility] [address] [facility] [id number] [place] [address]- [address] May, 2014 [facility] [place] [facility] [address] [id number] [place] [address] May, 2014 [facility] [place] [facility] [address] [id number] [place] [address]- [address] May, 2014 [facility] [place] [facility] [address] [id number] [place] [address] May, 2014 [facility] [place] [facility] [address] [facility] [id number] [place] [address]- 8467 May, 2014 [facility] [place] [facility] [address] [facility] [id number] [place] [address] May, 2014 [facility] [place] [facility] [address] [facility] [id number] [place] [address]70 May, 2014 [facility] [place] [facility] [address] [facility] [id number] [place] [address] May, [facility] [place] [facility] [address] [facility] [id number] [place] [address] Apr, [facility] [place] [facility] [address] [facility] [id number] [place] [address] Apr, [facility] [place] [facility] [address] [id number] [place] [address] Apr, [facility] [place] [facility] [address] [facility] [id number] [place] [address] Apr, [facility] [place] [facility] [address] [facility] [id number] [place] [address] Apr, [facility] [place] [facility] [address] [facility] [id number] [place] [address] 269[address] Apr, [facility] [place] [facility] [address] [id number] [place] [address]- [address] Apr, [facility] [place] [facility] [address] [id number] [place] [address] Apr, [facility] [place] [facility] [address] [id number] [place] [address] 87[address] Apr, [facility] [place] [facility] [address] [id number] [place] [address] Apr, [facility] [place] [facility] [address] [id number] [place] [address]- 18[address] Apr, [facility] [place] [facility] [address] [id number] [place] [address]- [address] Apr, [facility] [place] [facility] [address] [id number] [place] [address]- [address] Apr, [facility] [facility] [address] [id number] [place] [address] Apr, [facility] [place] [facility] [address] [id number] [place] [address] Apr, [facility] [place] [facility] [address] [id number] [place] [address] 6311 Apr, [facility] [place] [facility] [address] [id number] [place] [address] Apr, [facility] [place] [facility] [address] [id number] [place] [address] 9128 Apr, [facility] [place] [address] [id number] [place] [address] 1824 Apr, [facility] [place] [facility] [address] [id number] [place] [address]- 4135 Apr, [facility] [place] [facility] [address] [id number] [place] [address] 6004 Mar, [facility] [place] [facility] [address] [id number] [place] [address] 7231 Mar, [facility] [place] [facility] [address] [id number] [place] [address] 8206 Mar, [facility] [place] [facility] [address] [id number] [place] [address]- 6746 Mar, [facility] [place] [facility] [address] [id number] [place] [address]- 2406 Mar, [facility] [place] [facility] [address] [id number] [place] [address]- 2799 Mar, [facility] [place] [facility] [address] [id number] [place] [address]- 5822 Mar, [facility] [place] [facility] [address] [id number] [place] [address]- 2554 Mar, [facility] [place] [facility] [address] [id number] [place] [address]- 1753 15 Mar, 2014 [facility] [place] [address] [id number] [place] [address]- 3979 15 Mar, 2014 [facility] [place] [facility] [address] [id number] [place] [address]- 7551 15 Mar, 2014 [facility] [address] [id number] [place] [address]- 3511 15 Mar, 2014 [facility] [address] [id number] [place] [address]- 7519 Mar, [facility] [address] [id number] [place] [address] Mar, [facility] [place] [address] [id number] [place] [address]- 7916 Mar, [facility] [address] [id number] [place] [address] 8016 Mar, [facility] [address] [id number] [place] [address]- 3873 Feb, [facility] [place] [facility] [address] [id number] [place] [address]- 0073 Feb, [facility] [facility] [address] [id number] [place] [address]- 8814 Feb, [facility] [facility] [address] [id number] [place] [address]- 0071 Feb, [facility] [address] [id number] [place] [address]- 1596 Feb, [facility] [address] [id number] [place] [address]- 5344 Feb, [facility] [address] [id number] [place] [address]- 8731 Feb, [facility] [place] [address] [id number] [place] [address]- 6400 18 Feb, 2014 [facility] [address] [id number] [place] [address]- 8951 18 Feb, 2014 [facility] [facility] [address] [id number] [place] [address]- 0101 17 Feb, 2014 [facility] [address] [id number] [place] [address]- 6030 17 Feb, 2014 [facility] [address] [id number] [place] [address]- 5740 17 Feb, 2014 [facility] [address] [id number] [place] [address]- 5147 17 Feb, 2014 [facility] [address] [id number] [place] [address]- 5924 14 Feb, 2014 [facility] [address] [id number] [place] [address]- 0748 14 Feb, 2014 [facility] [address] [id number] [place] [address]- 8518 14 Feb, 2014 [facility] [address] [id number] [place] [address]- 8564 14 Feb, 2014 [facility] [address] [id number] [place] [address]- 1651 10 Feb, 2014 [facility] [address] [id number] [place] [address]- 5538 10 Feb, 2014 [facility] [address] [id number] [place] [address]- 4767 Feb, [facility] [address] [id number] [place] [address]- 3824 Feb, [facility] [address] [id number] [place] [address]- 3321 Jan, [facility] [address] [id number] [place] [address]- 3952 Jan, [facility] [address] [id number] [place] [address]- 5541 Jan, [facility] [address] [id number] [place] [address]- 9763 Jan, [facility] [address] [id number] [place] [address]- 4230 Jan, [facility] [address] [id number] [place] [address]- 8378 Jan, [facility] [address] [id number] [place] [address]- 2553 Jan, [facility] [address] [id number] [place] [address]- 1612 Jan, [facility] [address] [id number] [place] [address]- 2581 Jan, [facility] [address] [id number] [place] [address]- 5958 Jan, [facility] [address] [id number] [place] [address]- 5775 Jan, [facility] [address] [id number] [place] [address]- 0479 17 Jan, 2013 [facility] [address] [id number] [place] [address]- 6752 17 Jan, 2013 [facility] [address] [id number] [place] [address]- 5846 17 Jan, 2014 [facility] [address] [id number] [place] [address]- 1626 15 Jan, 2014 [facility] [address] [id number] [place] [address]- 0481 15 Jan, 2014 [facility] [address] [id number] [place] [address]- 8453 14 Jan, 2014 [facility] [address] [id number] [place] [address]- 1121 14 Jan, 2014 [facility] [address] [id number] [place] [address]- 3252 13 Jan, 2014 [facility] [address] [id number] [place] [address]- 5847 13 Jan, 2014 [facility] [address] [id number] [place] [address]- 2446 13 Jan, 2014 [facility] [address] [id number] [place] [address]- 3730 13 Jan, 2014 [facility] [address] [id number] [place] [address]- 5152 10 Jan, 2014 [facility] [address] [id number] [place] [address]- 1925 02 Jan, 2014 [facility] [address] [id number] [place] [address]- 6633 02 Jan, 2014 [facility] [address] [id number] [place] [address]- 9467 25 Dec, 2013 [facility] [address] [id number] [place] [address]- 6108 25 Sep, 2013 [facility] [address] [id number] [place] [address]- 9828 23 Sep, 2013 [facility] [address] [id number] [place] [address]- 9016 23 Sep, 2013 [facility] [address] [id number] [place] [address] 2546 19 Sep, 2013 [facility] [address] [id number] [place] [address]- 2543 19 Sep, 2013 [facility] [address] [id number] [place] [address]- 1689 17 Sep, 2013 [facility] [address] [id number] [place] [address]- 9940 17 Sep, 2013 [facility] [address] [id number] [place] [address]- 9963 09 Sep, 2013 [facility] [address] [id number] [place] [address]- 7661 09 Sep, 2013 [facility] [address] [id number] [place] [address]- 6483 08 Sep, 2013 [facility] [address] [id number] [place] [address]- 5056 08 Sep, 2013 [facility] [address] [id number] [place] [address]- 3970 04 Sep, 2013 [facility] [address] [id number] [place] [address]- 2541 04 Sep, 2013 [facility] [address] [id number] [place] [address]- 2541 02 Sep, 2013 [facility] [address] [id number] [place] [address]- 3844 02 Sep, 2013 [facility] [address] [id number] [place] [address]- 9336 02 Sep, 2013 [facility] [address] [id number] [place] [address]- 4521 Dec, [facility] [address] [id number] [place] [address]- 5215 Nov, [facility] [address] [id number] [place] [address]- 6718 Nov, [facility] [address] [id number] [place] [address]- 4193 Nov, [facility] [address] [id number] [place] [address]- 2536 Nov, [facility] [address] [id number] [place] [address]- 0349 Nov, [facility] [address] [id number] [place] [address]- 0261 Nov, [facility] [address] [id number] [place] [address]- 0357 Nov, [facility] [address] [id number] [place] [address]- 7156 Nov, [facility] [address] [id number] [place] [address]- 2832 Nov, [facility] [address] [id number] [place] [address]- 8538 Nov, [facility] [address] [id number] [place] [address]- 4622 Nov, [facility] [address] [id number] [place] [address]- 0656 Nov, [facility] [address] [id number] [place] [address]- 7681 Oct, [facility] [address] [id number] [place] [address]- 1337 Oct, [facility] [address] [id number] [place] [address]- 7334 Oct, [facility] [address] [id number] [place] [address]- 0134 Oct, [facility] [address] [id number] [place] [address]- 9731 Oct, [facility] [address] [id number] [place] [address]- 3515 Oct, [facility] [address] [id number] [place] [address]- 7238 Oct, [facility] [address] [id number] [place] [address]- 2144 Oct, [facility] [address] [id number] [place] [address]- 8166 Oct, [facility] [address] [id number] [place] [address]- 7790 Oct, [facility] [address] [id number] [place] [address]- 4477 Oct, [facility] [address] [id number] [place] [address]- 7937 Oct, [facility] [address] [id number] [place] [address]- 4283 Oct, [facility] [address] [id number] [place] [address]- 3869 Oct, [facility] [address] [id number] [place] [address]- 4475 Oct, [facility] [address] [id number] [place] [address]- 1106 Oct, [facility] [address] [id number] [place] [address]- 8094 Oct, [facility] [address] [id number] [place] [address]- 5556 Sep, [facility] [address] [id number] [place] [address]- 8228 Sep, [facility] [address] [id number] [place] [address]- 1454 Sep, [facility] [address] [id number] [place] [address]- 2385 20 Sep, 2013 [facility] [address] [id number] [place] [address]- 5693 18 Sep, 2013 [facility] [address] [id number] [place] [address]- 4607 18 Sep, 2013 [facility] [address] [id number] [place] [address]- 5359 17 Sep, 2013 [facility] [address] [id number] [place] [address]- 6460 17 Sep, 2013 [facility] [address] [facility] [id number] [place] [address]- 0590 Sep, [facility] [address] [id number] [place] [address]- 1806 Sep, [facility] [address] [id number] [place] [address]- 4072 Sep, [facility] [address] [facility] [id number] [place] [address]- 9829 Sep, [facility] [address] [id number] [place] [address]- 3689 Sep, [facility] [address] [id number] [place] [address]- 1944 Sep, [facility] [address] [id number] [place] [address]- 8670 09 Sep, 2013 [facility] [address] [id number] [place] [address]- 2620 09 Sep, 2013 [facility] [address] [facility] [id number] [place] [address]- 5751 07 Sep, 2013 [facility] [address] [id number] [place] [address]- 7610 Sep, [facility] [address] [id number] [place] [address]- 1106 Sep, [facility] [address] [id number] [place] [address]- 7364 Sep, [facility] [address] [id number] [place] [address]- 2515 Sep, [facility] [address] [id number] [place] [address]- 8453 Sep, [facility] [address] [id number] [place] [address]- 2733 August, [facility] [address] [id number] [place] [address]- 6303 August, [facility] [address] [id number] [place] [address]- 7324 August, [facility] [address] [id number] [place] [address]- 6611 August, [facility] [address] [id number] [place] [address]- 9760 August, [facility] [address] [id number] [place] [address]- 4163 August, [facility] [address] [id number] [place] [address]- 5956 August, [facility] [address] [id number] [place] [address]- 7694 August, [facility] [place] [facility] [address] [id number] [place] [address]404 August, [facility] [address] [id number] [place] [address]- 0108 August, [facility] [place] [facility] [address] [id number] [place] [address]- 9061 August, [facility] [place] [facility] [address] [id number] [place] [address]- 9054 Jul, [facility] [place] [facility] [address] [id number] [place] [address]- 7491 Jul, [facility] [place] [facility] [address] [id number] [place] [address]- 8684 Jul, [facility] [place] [facility] [address] [id number] [place] [address]- 5702 Jul, [facility] [place] [facility] [address] [id number] [place] [address]- 4773 Jul, [facility] [place] [facility] [address] [id number] [place] [address]- 3729 Jul, [facility] [place] [facility] [address] [id number] [place] [address]- 5231 Jul, [facility] [place] [facility] [address] [id number] [place] [address]- 1772 Jul, [facility] [place] [facility] [address] [id number] [place] [address]- 6422 Jul, [facility] [place] [facility] [address] [id number] [place] [address]- 2131 Jul, [facility] [place] [facility] [address] [id number] [place] [address]- 5268 16 Jul, 2013 [facility] [place] [facility] [address] [id number] [place] [address]- 7316 Jul, [facility] [place] [facility] [address] [id number] [place] [address]- 8917 Jul, [facility] [place] [facility] [address] [id number] [place] [address]- 7336 Jul, [facility] [place] [facility] [address] [id number] [place] [address]- 9525 Jul, [facility] [place] [facility] [address] [id number] [place] [address]- 7369 Jul, [facility] [place] [facility] [address] [id number] [place] [address]- 2247 Jul, [facility] [place] [facility] [address] [id number] [place] [address]- 5369 Jul, [facility] [place] [facility] [address] [id number] [place] [address]- 3292 Jul, [facility] [place] [facility] [address] [id number] [place] [address]- 8872 Jul, [facility] [place] [facility] [address] [id number] [place] [address]- 2197 Jul, [facility] [place] [facility] [address] [id number] [place] [address]- 7090 Jul, [facility] [place] [facility] [address] [id number] [place] [address]- 9819 Jul, [facility] [place] [facility] [address] [id number] [place] [address]- 0109 Jun, [facility] [place] [facility] [address] [id number] [place] [address]- 1857 Jun, [facility] [place] [facility] [address] [id number] [place] [address]- 8892 Jun, [facility] [place] [facility] [address] [id number] [place] [address]- 6660 Jun, [facility] [place] [facility] [address] [id number] [place] [address]- 8803 Jun, [facility] [place] [facility] [address] [id number] [place] [address]- 9875 Jun, [facility] [place] [facility] [address] [id number] [place] [address]- 8382 Jun, [facility] [place] [facility] [address] [id number] [place] [address]- 7825 Jun, [facility] [place] [facility] [address] [id number] [place] [address]- 2871 18 Jun, 2013 [facility] [place] [facility] [address] [id number] [place] [address]- 0102 18 Jun, 2013 [facility] [place] [facility] [address] [id number] [place] [address]- 1953 17 Jun, 2013 [facility] [place] [facility] [address] [id number] [place] [address]- 8480 17 Jun, 2013 [facility] [place] [facility] [address] [id number] [place] [address]- 5735 May, [facility] [place] [facility] [address] [id number] [place] [address]- 4832 May, [facility] [place] [facility] [address] [id number] [place] [address]- 2059 Apr, [facility] [place] [facility] [address] [id number] [place] [address]- 1393 Apr, [facility] [place] [facility] [address] [id number] [place] [address]- 6105 Apr, [facility] [place] [facility] [address] [id number] [place] [address]- 9562 Apr, [facility] [place] [facility] [address] [id number] [place] [address] Apr, [facility] [place] [facility] [address] [id number] [place] [address] Apr, [facility] [place] [facility] [address] [id number] [place] [address] Apr, [facility] [place] [facility] [address] [id number] [place] [address] Apr, [facility] [place] [facility] [address] [id number] [place] [address] 14 Apr, 2013 [facility] [place] [facility] [address] [id number] [place] [address] Apr, [facility] [address] [id number] [place] [address] Apr, [facility] [place] [facility] [address] [id number] [place] [address] Mar, [facility] [place] [facility] [address] [id number] [place] [address] Mar, [facility] [place] [facility] [address] [id number] [place] [address] Mar, [facility] [place] [facility] [address] [id number] [place] [address] Mar, [facility] [place] [facility] [address] [id number] [place] [address] Feb, [facility] [place] [facility] [address] [id number] [place] [address] Feb, [facility] [place] [facility] [address] [id number] [place] [address] Feb, [facility] [place] [facility] [address] [id number] [place] [address] Feb, [facility] [place] [facility] [address] [id number] [place] [address] Feb, [facility] [place] [facility] [address] [id number] [place] [address] Feb, [facility] [place] [facility] [address] [id number] [place] [address] Feb, [facility] [place] [facility] [address] [id number] [place] [address] Feb, [facility] [place] [facility] [address] [id number] [place] [address] Feb, [facility] [place] [facility] [address] [id number] [place] [address] Feb, [facility] [place] [facility] [address] [id number] [place] [address]100 02 Feb, 2013 [facility] [place] [facility] [address] [id number] [place] [address]- 279[address] Jan, 2012 [facility] [place] [facility] [address] [id number] [place] [address]296 Jan, [facility] [place] [facility] [address] [id number] [place] [address] Jan, 2012 [facility] [place] [facility] [address] [id number] [place] [address] Jan, 2012 [facility] [place] [facility] [address] [id number] [place] [address] Jan, [facility] [place] [facility] [address] [id number] [place] [address] 3507 Jan, [facility] [place] [facility] [address] [id number] [place] [address] 94[address] Jan, [facility] [address] [id number] [place] [address]497 02 Jan, 2013 [facility] [place] [facility] [address] [id number] [place] [address]- [address]285 30 Sep, 2012 [facility] [place] [facility] [address] [id number] [place] [address]- [address] 25 Sep, 2012 [facility] [place] [facility] [address] [id number] [place] [address]43 18 Sep, 2012 [facility] [place] [facility] [address] [id number] [place] [address] 17 Sep, 2012 [facility] [place] [facility] [address] [id number] [place] [address] 2548 17 Sep, 2012 [facility] [place] [facility] [address] [id number] [place] [address]42 16 Sep, 2012 [facility] [place] [facility] [address] [id number] [place] [address]42 13 Dec, 2012 [facility] [place] [facility] [address] [id number] [place] [address] 8773 11 Dec, 2012 [facility] [place] [facility] [address] [id number] [place] [address] 05 Dec, 2012 [facility] [place] [facility] [address] [id number] [place] [address] 04 Dec, 2012 [facility] [place] [facility] [address] [id number] [place] [address]76 30 Nov, 2012 [facility] [place] [facility] [address] [id number] [place] [address]646 Nov, [facility] [place] [facility] [address] [id number] [place] [address] 8967 Nov, [facility] [place] [facility] [address] [id number] [place] [address]- [address]64 Nov, [facility] [place] [facility] [address] [id number] [place] [address]- 7625 Nov, [facility] [place] [facility] [address] [id number] [place] [address]- 9489 Nov, [facility] [place] [facility] [address] [id number] [place] [address]- [address]576 Nov, [facility] [place] [facility] [address] [id number] [place] [address] 9220 Oct, [facility] [place] [facility] [address] [id number] [place] [address]- 8240 Oct, [facility] [place] [facility] [address] [id number] [place] [address]- 9577 Oct, [facility] [place] [facility] [address] [id number] [place] [address]- 1182 Oct, [facility] [place] [facility] [address] [id number] [place] [address]- 9666 15 Oct, 2012 [facility] [place] [facility] [address] [id number] [place] [address]- 2192 Oct, [facility] [address] [id number] [place] [address]114 28 Sep, 2012 [facility] [place] [facility] [address] [id number] [place] [address]- 2092 Sep, [facility] [address] [id number] [place] [address] 3093 Sep, [facility] [place] [facility] [address] [id number] [place] [address]- 7917 14 Sep, 2012 [facility] [address] [id number] [place] [address]- 3530 13 Sep, 2012 [facility] [address] [id number] [place] [address] 3739 Sep, [facility] [address] [id number] [place] [address] 6166 Sep, [facility] [address] [id number] [place] [address]- [address]442 Sep, [facility] [address] [id number] [place] [address]- 1370 Sep, [facility] [address] [id number] [place] [address]- 7613 August, [facility] [address] [id number] [place] [address]- 266[address] August, [facility] [place] [facility] [address] [id number] [place] [address]- 1291 August, [facility] [place] [facility] [address] [id number] [place] [address]- 4871 August, [facility] [place] [facility] [address] [id number] [place] [address]- 1717 August, [facility] [place] [facility] [address] [id number] [place] [address]- 6657 August, [facility] [place] [facility] [address] [id number] [place] [address]- 6926 August, [facility] [address] [id number] [place] [address] August, [facility] [address] [id number] [place] [address]- 74[address] Jul, [facility] [address] [id number] [place] [address]- 9166 Jul, [facility] [address] [place] [id number] Jul [facility] [address] [id number] [place] [address]- [address]274 Jun, [facility] [address] [id number] [place] [address]- [address]656 Jun, [facility] [address] [address] [id number] [place] [address] Jun, [facility] [address] [id number] [place] [address] Jun, [facility] [address] [id number] [place] [address] Jun, [facility] [address] [facility] [id number] [place] [address] Jun, [facility] [address] [id number] [place] [address] May, [facility] [address] [id number] [place] [address] May, [facility] [address] [id number] [place] [address] May, [facility] [address] [id number] [place] [address] May, [facility] [address] [id number] [place] [address] May, [facility] [address] [id number] [place] [address] Apr, [facility] [place] [facility] [address] [id number] [place] [address] Apr, [facility] [place] [facility] [address] [id number] [place] [address] Apr, [facility] [place] [facility] [address] [id number] [place] [address] Apr, [facility] [address] [id number] [place] [address] Apr, [facility] [address] [id number] [place] [address] Apr, [facility] [address] [id number] [place] [address] Mar, [facility] [place] [facility] [address] [id number] [place] [address] Mar, [facility] [place] [facility] [address] [id number] [place] [address] Mar, [facility] [place] [facility] [address] [id number] [place] [address] Mar, [facility] [place] [facility] [address] [id number] [place] [address] 365[address] Mar, [facility] [place] [facility] [address] [id number] [place] [address] 18 Mar, 2012 [facility] [place] [facility] [address] [id number] [place] [address] 18 Mar, 2012 [facility] [place] [facility] [address] [id number] [place] [address] Mar, [facility] [place] [facility] [address] [id number] [place] [address] 10 Mar, 2012 [facility] [place] [facility] [address] [id number] [place] [address] 7983 05 Mar, 2012 [facility] [place] [facility] [address] [id number] [place] [address]- [address]75 05 Mar, 2012 [facility] [place] [facility] [address] [id number] [place] [address]20 Feb, [facility] [place] [facility] [address] [id number] [place] [address] Feb, [facility] [place] [facility] [address] [id number] [place] [address] Feb, [facility] [place] [facility] [address] [id number] [place] [address] Feb, [facility] [place] [facility] [address] [id number] [place] [address]65 Feb, [facility] [place] [facility] [address] [id number] [place] [address] Feb, [facility] [place] [facility] [address] [id number] [place] [address] 31[address] Feb, [facility] [place] [facility] [address] [id number] [place] [address] Feb, [facility] [place] [facility] [address] [facility] [id number] [place] [address] Feb, [facility] [place] [facility] [address] [id number] [place] [address] Feb, [facility] [place] [facility] [address] [id number] [place] [address] Feb, [facility] [place] [facility] [address] [id number] [place] [address] Jan, [facility] [place] [facility] [address] [facility] [id number] [place] [address]078 Jan, [facility] [place] [facility] [address] [facility] [id number] [place] [address] Jan, [facility] [place] [facility] [address] [id number] [place] [address] Jan, [facility] [place] [facility] [address] [id number] [place] [address] Jan, [facility] [place] [facility] [address] [id number] [place] [address]226 Jan, [facility] [place] [facility] [address] [id number] [place] [address]- 8583 Jan, [facility] [place] [facility] [address] [id number] [place] [address]- [address] 24 Dec, 2011 [facility] [place] [facility] [address] [id number] [place] [address]34 17 Dec, 2011 [facility] [place] [facility] [address] [id number] [place] [address] 4815 13 Dec, 2011 [facility] [place] [facility] [address] [id number] [place] [address]- [address] 12 Dec, 2011 [facility] [place] [facility] [address] [id number] [place] [address] 365[address] Nov, [facility] [place] [facility] [address] [id number] [place] [address]- [address] Nov, [facility] [place] [facility] [address] [id number] [place] [address]- 7286 17 Nov, 2011 [facility] [place] [facility] [address] [id number] [place] [address]- 1990 15 Nov, 2011 [facility] [place] [facility] [address] [id number] [place] [address]- [address]70 14 Nov, 2011 [facility] [place] [facility] [address] [id number] [place] [address]- [address] 13 Nov, 2011 [facility] [place] [facility] [address] [id number] [place] [address]- 4885 10 Nov, 2011 [facility] [place] [facility] [address] [id number] [place] [address]- 4817 Nov, [facility] [place] [facility] [address] [id number] [place] [address]- 7961 Nov, [facility] [place] [facility] [address] [id number] [place] [address]113 Nov, [facility] [place] [facility] [address] [id number] [place] [address]- 8965 Nov, [facility] [place] [facility] [address] [id number] [place] [address]- 5549 Nov, [facility] [place] [facility] [address] [id number] [place] [address]- 2499 Nov, [facility] [place] [facility] [address] [id number] [place] [address] 1198 Oct, [facility] [place] [facility] [address] [id number] [place] [address] 0874 Oct, [facility] [place] [facility] [address] [id number] [place] [address]- 0871 Oct, [facility] [place] [facility] [address] [id number] [place] [address]- 6936 Oct, [facility] [place] [facility] [address] [id number] [place] [address]- 1386 Oct, [facility] [place] [facility] [address] [id number] [place] [address]- 3667 Oct, [facility] [place] [facility] [address] [id number] [place] [address]- 1018 Oct, [facility] [place] [facility] [address] [id number] [place] [address]- 2154 Oct, [facility] [place] [facility] [address] [id number] [place] [address]- 0900 Oct, [facility] [place] [facility] [address] [id number] [place] [address]- 7300 Sep, [facility] [place] [facility] [address] [id number] [place] [address]- 6343 Sep, [facility] [address] [id number] [place] [address]- 5435 Sep, [facility] [place] [facility] [address] [id number] [place] [address]- 8146 Sep, [facility] [address] [id number] [place] [address]- 6417 Sep, [facility] [place] [facility] [address] [id number] [place] [address]- 7868 Sep, [facility] [address] [id number] [place] [address]- 9876 Sep, [facility] [address] [id number] [place] [address]- 1087 Sep, [facility] [address] [id number] [place] [address]- 4401 August, [facility] [address] [id number] [place] [address]- 7981 August, [facility] [address] [id number] [place] [address]- 3434 August, [facility] [address] [id number] [place] [address]- 1546 August, [facility] [place] [facility] [address] [id number] [place] [address]- 3099 August, [facility] [address] [id number] [place] [address]- 3458 August, [facility] [place] [facility] [address] [id number] [place] [address]- 8654 August, [facility] [place] [facility] [address] [id number] [place] [address]- 56[address] August, [facility] [address] [id number] [place] [address]- 8024 August, [facility] [address] [facility] [id number] [place] [address] August, [facility] [address] [facility] [id number] [place] [address]- 4[address] August, [facility] [address] [facility] [id number] [place] [address]- [address] August, [facility] [address] [facility] [id number] [place] [address] 8436 Oct, IMMUNIZATIONS No Known Immunizations SOCIAL HISTORY [...] on buttocks 08/2012 Hospitalization History [facility], hypoxia secondary to pneumonia 12/02-12/09 Hospitalization History Pneumonia, elevated CO2 on Bipap was in ICU 08/2013 Hospitalization History Hypoxia, Exacerbation COPD, Chest pain 09/05/15 Hospitalization History [place] ideations-[place] 12/28 Hospitalization History hypoxia--[facility] 02/13/2016 Hospitalization History shortness of breath at june 2016 Hospitalization History Shortness of breath at august 2016 Hospitalization History SOB, chest pain at 12/2016
--- OUTSIDE RECORDS SUMMARY | 2017-11-24 17:50 | XMS REPORT ---
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 [facility] [address], [place] [address]- 5755 05 Sep, 2014 Diabetes mellitus without mention of complication, type II or unspecified type, not stated as uncontrolled 250.00 and Other chronic pain 338.29 [facility] [address] [facility] [id number] [address]- 4480 Sep, Episodic mood disorder 296.90 [facility] [address], [place] [address]- 3678 Sep, [facility] [address], [place] [address]- 8846 Sep, Episodic mood disorder 296.90 [facility] [address], [place] [address]- 1793 Sep, [facility] [id number] [place] [address] 98309- 8018 August, [facility] [address], [place] [address]- 5880 August, [facility] [id number] [place] [address] 10678- 5877 August, Episodic mood disorder 296.90 [facility] [address], [place] [address]- 5888 August, [facility] [id number] [place] [address] 62164- 6038 August, Unspecified episodic mood disorder 296.90 [facility] [address], [place] [address]- 7647 August, Vomiting 787.03 [facility] [address], [place] [address]- 3203 August, [facility] [address], [place] [address]- 3113 August, [facility] [address], [place] [address]- 1145 August, [facility] [address], [place] [address]- 5845 August, [facility] [address], [place] [address]- 2546 August, [facility] [place] [facility] [address] [id number] [place] [address]- 8381 28 Jul, 2014 [facility] [place] [facility] [address] [id number] [place] [address]- 4846 Jul, [facility] [place] [facility] [address] [id number] [place] [address]- 0200 Jul, [facility] [place] [facility] [address] [id number] [place] [address]- 4239 30 Jun, 2014 [facility] [place] [facility] [address] [id number] [place] [address]- 6383 Jun, [facility] [place] [facility] [address] [id number] [place] [address]- 8438 Jun, [facility] [place] [facility] [address] [id number] [place] [address]- 8856 Jun, [facility] [place] [facility] [address] [id number] [place] [address]- 3508 Jun, [facility] [place] [facility] [address] [id number] [place] [address]- 6035 Jun, [facility] [place] [facility] [address] [id number] [place] [address]- 2645 Jun, [facility] [place] [facility] [address] [id number] [place] [address]- 5701 Jun, [facility] [place] [facility] [address] [id number] [place] [address]- 5361 Jun, [facility] [place] [facility] [address] [id number] [place] [address]- 6889 Jun, [facility] [place] [facility] [address] [id number] [place] [address]- 1079 Jun, [facility] [place] [facility] [address] [id number] [place] [address]- 1133 Jun, [facility] [place] [facility] [address] [id number] [place] [address]- 9890 26 Jun, 2014 [facility] [place] [facility] [address] [id number] [place] [address]- 3950 26 Jun, 2014 [facility] [place] [facility] [address] [id number] [place] [address]- 7673 24 Jun, 2014 [facility] [place] [facility] [address] [id number] [place] [address]- 0197 Jun, [facility] [place] [facility] [address] [id number] [place] [address]- 4066 Jun, [facility] [place] [facility] [address] [id number] [place] [address]- 6189 Jun, [facility] [place] [facility] [address] [id number] [place] [address]- 3523 Jun, [facility] [place] [facility] [address] [id number] [place] [address]- 1858 Jun, [facility] [place] [facility] [address] [id number] [place] [address]- 0204 Jun, [facility] [place] [facility] [address] [id number] [place] [address]- 7405 Jun, [facility] [place] [facility] [address] [id number] [place] [address]- 8197 20 Jun, 2014 [facility] [place] [facility] [address] [id number] [place] [address]- 3575 20 Jun, 2014 [facility] [place] [facility] [address] [id number] [place] [address]- 1157 20 Jun, 2014 [facility] [place] [facility] [address] [id number] [place] [address]- 0541 19 Jun, 2014 [facility] [place] [facility] [address] [id number] [place] [address]- 9445 19 Jun, 2014 [facility] [place] [facility] [address] [id number] [place] 8661 18 Jun, 2014 [facility] [place] [facility] [address] [id number] [place] [address]- 6011 18 Jun, 2014 [facility] [place] [facility] [address] [id number] [place] [address]- 2088 17 Jun, 2014 [facility] [place] [facility] [address] [id number] [place] [address]- 8806 17 Jun, 2014 [facility] [place] [facility] [address] [id number] [place] [address]- 5486 16 Jun, 2014 [facility] [place] [facility] [address] [id number] [place] [address]- 2948 16 Jun, 2014 [facility] [place] [facility] [address] [id number] [place] [address]- 3225 16 Jun, 2014 [facility] [place] [facility] [address] [id number] [place] [address]- 5806 16 Jun, 2014 [facility] [place] [facility] [address] [id number] [place] [address]- 2473 16 Jun, 2014 [facility] [place] [facility] [address] [id number] [place] [address]- 2588 16 Jun, 2014 [facility] [place] [facility] [address] [id number] [place] [address]- 3367 13 Jun, 2014 [facility] [place] [facility] [address] [id number] [place] [address]- 4634 13 Jun, 2014 [facility] [place] [facility] [address] [id number] [place] [address]- 4014 12 Jun, 2014 [facility] [place] [facility] [address] [id number] [place] [address]- 0646 12 Jun, 2014 [facility] [place] [facility] [address] [id number] [place] [address]- 9052 09 Jun, 2014 [facility] [place] [facility] [address] [id number] [place] [address]- 0203 09 Jun, 2014 [facility] [place] [facility] [address] [id number], [place] [address]- 0030 Jun, [facility] [place] [facility] [address] [id number] [place] [address]- 2478 Jun, [facility] [place] [facility] [address] [id number] [place] [address]- 2083 Jun, [facility] [place] [facility] [address] [facility] [id number] [place] [address] Jun, [facility] [place] [facility] [address] [id number] [place] [address] Jun, [facility] [place] [facility] [address] [id number] [place] [address] Jun, [facility] [place] [facility] [address] [id number] [place] [address] Jun, [facility] [place] [facility] [address] [facility] [id number] [place] [address] Jun, [facility] [place] [facility] [address] [facility] [id number] [place] [address] Jun, [facility] [place] [facility] [address] [id number] [place] [address] Jun, [facility] [place] [facility] [address] [facility] [id number] [place] [address]98 Jun, [facility] [place] [facility] [address] [id number] [place] [address] Jun, [facility] [place] [facility] [address] [facility] [id number], [place] [address] Jun, [facility] [place] [facility] [address] [id number] [place] [address] Jun, [facility] [place] [facility] [address] [facility] [id number] [place] [address] May, [facility] [place] [facility] [address] [facility] [id number] [address] May, [facility] [place] [facility] [address] [id number] [place] [address] May, 2014 [facility] [place] [facility] [address] [id number] [place] [address]- [address] May, 2014 [facility] [place] [facility] [address] [id number] [place] [address] May, 2014 [facility] [place] [facility] [address] [id number] [place] [address] May, 2014 [facility] [place] [facility] [address] [id number] [place] [address]- [address] May, 2014 [facility] [place] [facility] [address] [id number] [place] [address]- [address] May, 2014 [facility] [place] [facility] [id number] [address] May, 2014 [facility] [place] [facility] [address] [facility] [id number] [place] [address] May, 2014 [facility] [place] [facility] [address] [facility] [id number] [place] [address] 18 May, 2014 [facility] [place] [facility] [address] [facility] [id number] [place] [address] 18 May, 2014 [facility] [place] [facility] [address] [facility] [id number] [place] [address] 13 May, 2014 [facility] [place] [facility] [address] [facility] [id number] [place] [address]- [address] 13 May, 2014 [facility] [place] [facility] [address] [facility] [id number] [place] [address]- [address] May, 2014 [facility] [place] [facility] [address] [facility] [id number] [place] [address] May, 2014 [facility] [place] [facility] [address] [facility] [id number] [place] [address]- [address]48 May, 2014 [facility] [place] [facility] [address] [facility] [id number] [place] [address] May, 2014 [facility] [place] [facility] [address] [id number] [place] [address]- [address] May, 2014 [facility] [place] [facility] [address] [facility] [id number] [place] [address] May, 2014 [facility] [place] [facility] [address] [id number] [place] [address]- [address] May, 2014 [facility] [place] [facility] [address] [id number] [place] [address]- [address] May, 2014 [facility] [place] [facility] [address] [id number] [place] [address]- [address] May, 2014 [facility] [place] [facility] [address] [facility] [id number] [place] [address]- [address] May, 2014 [facility] [place] [facility] [address] [facility] [id number], [place] [address] May, 2014 [facility] [place] [facility] [address] [facility] [id number] [place] [address] May, 2014 [facility] [place] [facility] [address] [facility] [id number] [place] [address]- [address] May, [facility] [place] [facility] [address] [facility] [id number], [place] [address] Apr, [facility] [place] [facility] [address] [facility] [id number], [place] [address] Apr, [facility] [place] [facility] [address] [id number], [place] [address] Apr, [facility] [place] [facility] [address] [facility] [id number], [place] [address] Apr, [facility] [place] [facility] [address] [facility] [id number], [place] [address] Apr, [facility] [place] [facility] [address] [facility] [id number], [place] [address] Apr, [facility] [place] [facility] [address] [id number] [place] [address] 7746 Apr, [facility] [place] [facility] [address] [id number] [place] [address]- 5164 Apr, [facility] [place] [facility] [address] [id number] [place] [address]- 3814 Apr, [facility] [place] [facility] [address] [id number] [place] [address]- 4509 Apr, [facility] [place] [facility] [address] [id number] [place] [address]- 5675 Apr, [facility] [place] [facility] [address] [id number] [place] [address]- 8615 Apr, [facility] [place] [facility] [address] [id number] [place] [address]- 3163 Apr, [facility] [place] [facility] [address] [id number] [place] [address] 1984 Apr, [facility] [place] [facility] [address] [id number] [place] [address]- 3750 Apr, [facility] [place] [facility] [address] [id number] [place] [address]- 1243 Apr, [facility] [place] [facility] [address] [id number], [place] [address] 1154 Apr, [facility] [place] [facility] [address] [id number], [place] [address] 3882 Apr, [facility] [place] [facility] [address] [id number] [place] [address]- 3639 Apr, [facility] [place] [facility] [address] [id number] [place] [address]- 8058 Apr, [facility] [place] [facility] [address] [id number] [place] [address]- 4134 Mar, [facility] [place] [facility] [address] [id number] [place] [address]- 1138 Mar, [facility] [place] [facility] [address] [id number] [place] [address]- 0946 Mar, [facility] [place] [facility] [address] [id number] [place] [address]- 0966 Mar, [facility] [place] [facility] [address] [id number] [place] [address]- 9396 Mar, [facility] [place] [facility] [address] [id number] [place] [address]- 2222 Mar, [facility] [place] [facility] [address] [id number] [place] [address]- 1294 Mar, [facility] [place] [facility] [address] [id number] [place] [address]- 4082 Mar, [facility] [place] [facility] [address] [id number] [place] [address]- 3441 15 Mar, 2014 [facility] [place] [facility] [address] [id number] [place] [address]- 9485 15 Mar, 2014 [facility] [place] [facility] [address] [id number] [place] [address]- 8650 15 Mar, 2014 [facility] [place] [facility] [address] [id number] [place] [address]- 3041 15 Mar, 2014 [facility] [place] [facility] [address] [id number] [place] [address]- 3213 Mar, [facility] [place] [facility] [address] [id number] [place] [address] Mar, [facility] [place] [facility] [address] [id number] [place] [address]- 9926 Mar[facility] [place] [facility] [address] [id number] [place] [address]- 3366 Mar, [facility] [place] [facility] [address] [id number] [place] [address]- 6276 Feb, [facility] [place] [facility] [address] [id number] [place] [address] 1957 Feb, [facility] [place] [facility] [address] [id number] [place] [address]- 9421 Feb, [facility] [place] [facility] [address] [id number] [place] [address]- 2617 Feb, [facility] [place] [facility] [address] [id number] [place] [address]- 7441 Feb, [facility] [place] [facility] [address] [id number] [place] [address]- 8756 Feb, [facility] [place] [facility] [address] [id number] [place] [address]- 3021 Feb, [facility] [place] [facility] [address] [id number] [place] [address]- 3293 18 Feb, 2014 [facility] [place] [facility] [address] [id number] [place] [address]- 3984 18 Feb, 2014 [facility] [place] [facility] [address] [id number] [place] [address]- 1542 17 Feb, 2014 [facility] [place] [facility] [address] [id number] [place] [address]- 3323 17 Feb, 2014 [facility] [place] [facility] [address] [id number] [place] [address]- 0644 17 Feb, 2014 [facility] [place] [facility] [address] [id number], [place] [address]- 8974 17 Feb, 2014 [facility] [place] [facility] [address] [id number] [place] [address]- 7500 14 Feb, 2014 [facility] [place] [facility] [address] [id number] [place] [address]- 8382 14 Feb, 2014 [facility] [place] [facility] [address] [id number] [place] [address]- 0822 14 Feb, 2014 [facility] [place] [facility] [address] [id number] [place] [address]- 3999 14 Feb, 2014 [facility] [place] [facility] [address] [id number] [place] [address]- 5006 10 Feb, 2014 [facility] [place] [facility] [address] [id number] [place] [address]- 3291 10 Feb, 2014 [facility] [place] [facility] [address] [id number] [place] [address]- 2643 Feb, [facility] [place] [facility] [address] [id number] [place] [address]- 5837 Feb, [facility] [place] [facility] [address] [id number] [place] [address]- 0013 Jan, [facility] [place] [facility] [address] [id number] [place] [address]- 2005 Jan, [facility] [place] [facility] [address] [id number] [place] [address]- 9960 Jan, [facility] [place] [facility] [address] [id number] [place] [address]- 6307 Jan, [facility] [place] [facility] [address] [id number] [place] [address]- 3572 Jan, [facility] [place] [facility] [address] [id number] [place] [address]- 0312 Jan, [facility] [place] [facility] [address] [id number] [place] [address]- 8406 Jan, [facility] [place] [facility] [address] [id number] [place] [address]- 3738 Jan, [facility] [place] [facility] [address] [id number] [place] [address]- 2403 Jan, [facility] [place] [facility] [address] [id number] [place] [address]- 2741 Jan, [facility] [place] [facility] [address] [id number] [place] [address]- 9811 Jan, [facility] [place] [facility] [address] [id number] [place] [address]- 3731 17 Jan, 2013 [facility] [place] [facility] [address] [id number] [place] [address]- 2878 17 Jan, 2013 [facility] [place] [facility] [address] [id number] [place] [address]- 1650 17 Jan, 2014 [facility] [place] [facility] [address] [id number] [place] [address]- 7086 15 Jan, 2014 [facility] [place] [facility] [address] [id number] [place] [address]- 3302 15 Jan, 2014 [facility] [place] [facility] [address] [id number] [place] [address]- 7396 14 Jan, 2014 [facility] [place] [facility] [address] [id number] [place] [address]- 7237 14 Jan, 2014 [facility] [place] [facility] [address] [id number] [place] [address]- 3545 13 Jan, 2014 [facility] [place] [facility] [address] [id number] [place] [address]- 5698 13 Jan, 2014 [facility] [place] [facility] [address] [id number] [place] [address]- 2167 13 Jan, 2014 [facility] [place] [facility] [address] [id number] [place] [address]- 1536 13 Jan, 2014 [facility] [place] [facility] [address] [id number] [place] [address]- 4248 10 Jan, 2014 [facility] [place] [facility] [address] [id number] [place] [address]- 4540 02 Jan, 2014 [facility] [place] [facility] [address] [id number] [place] [address]- 1645 02 Jan, 2014 [facility] [place] [facility] [address] [id number] [place] [address]- 3105 25 Dec, 2013 [facility] [place] [facility] [address] [id number] [place] [address]- 5470 25 Sep, 2013 [facility] [place] [facility] [address] [id number] [place] [address]- 7988 23 Sep, 2013 [facility] [place] [facility] [address] [id number] [place] [address]- 7846 23 Sep, 2013 [facility] [place] [facility] [address] [id number] [place] [address] 2546 19 Sep, 2013 [facility] [place] [facility] [address] [id number] [place] [address]- 2540 19 Sep, 2013 [facility] [place] [facility] [address] [id number] [place] [address]- 3763 17 Sep, 2013 [facility] [place] [facility] [address] [id number] [place] [address]- 7854 17 Sep, 2013 [facility] [place] [facility] [address] [id number] [place] [address]- 9590 09 Sep, 2013 [facility] [place] [facility] [address] [id number] [place] [address]- 7241 09 Sep, 2013 [facility] [place] [facility] [address] [id number] [place] [address]- 0823 08 Sep, 2013 [facility] [place] [facility] [address] [id number] [place] [address]- 5619 08 Sep, 2013 [facility] [place] [facility] [address] [id number], [place] [address]- 3463 04 Sep, 2013 [facility] [place] [facility] [address] [id number], [place] [address]- 2547 04 Sep, 2013 [facility] [place] [facility] [address] [id number] [place] [address]- 2549 02 Sep, 2013 [facility] [place] [facility] [address] [id number] [place] [address]- 5594 02 Sep, 2013 [facility] [place] [facility] [address] [id number] [place] [address]- 2612 02 Sep, 2013 [facility] [place] [facility] [address] [id number] [place] [address]- 0511 Dec, [facility] [place] [facility] [address] [id number] [place] [address]- 1902 Nov, [facility] [place] [facility] [address] [id number] [place] [address]- 0908 Nov, [facility] [place] [facility] [address] [id number] [place] [address]- 6400 Nov, [facility] [place] [facility] [address] [id number] [place] [address]- 6399 Nov, [facility] [place] [facility] [address] [id number] [place] [address]- 2148 Nov, [facility] [place] [facility] [address] [id number] [place] [address]- 5907 Nov, [facility] [place] [facility] [address] [id number] [place] [address]- 1687 Nov, [facility] [place] [facility] [address] [id number] [place] [address]- 4323 Nov, [facility] [place] [facility] [address] [id number] [place] [address]- 2689 Nov, [facility] [place] [facility] [address] [id number] [place] [address]- 9209 Nov, [facility] [place] [facility] [address] [id number] [place] [address]- 0995 Nov, [facility] [place] [facility] [address] [id number] [place] [address]- 8657 Nov, [facility] [place] [facility] [address] [id number] [place] [address]- 0529 Oct, [facility] [place] [facility] [address] [id number] [place] [address]- 1882 Oct, [facility] [place] [facility] [address] [id number] [place] [address]- 1745 Oct, [facility] [place] [facility] [address] [id number] [place] [address]- 6228 Oct, [facility] [place] [facility] [address] [id number] [place] [address]- 3442 Oct, [facility] [place] [facility] [address] [id number] [place] [address]- 1488 Oct, [facility] [place] [facility] [address] [id number] [place] [address]- 6920 Oct, [facility] [place] [facility] [address] [id number] [place] [address]- 2120 Oct, [facility] [place] [facility] [address] [id number] [place] [address]- 1301 Oct, [facility] [place] [facility] [address] [id number] [place] [address]- 2719 Oct, [facility] [place] [facility] [address] [id number] [place] [address]- 1108 Oct, [facility] [place] [facility] [address] [id number] [place] [address]- 1172 Oct, [facility] [place] [facility] [address] [id number] [place] [address]- 2327 Oct, [facility] [place] [facility] [address] [id number] [place] [address]- 7953 Oct, [facility] [place] [facility] [address] [id number] [place] [address]- 3329 Oct, [facility] [place] [facility] [address] [id number] [place] [address]- 3730 Oct, [facility] [place] [facility] [address] [id number] [place] [address]- 9094 Oct, [facility] [place] [facility] [address] [id number] [place] [address]- 9498 Sep, [facility] [place] [facility] [address] [id number] [place] [address]- 3305 Sep, [facility] [place] [facility] [address] [id number] [place] [address]- 7541 Sep, [facility] [place] [facility] [address] [id number] [place] [address]- 0602 20 Sep, 2013 [facility] [place] [facility] [address] [id number] [place] [address]- 2361 18 Sep, 2013 [facility] [place] [facility] [address] [id number] [place] [address]- 6288 18 Sep, 2013 [facility] [place] [facility] [address] [id number] [place] [address]- 2522 17 Sep, 2013 [facility] [place] [facility] [address] [id number] [place] [address]- 1286 17 Sep, 2013 [facility] [place] [facility] [address] [facility] [id number] [place] [address]- 2842 Sep, [facility] [place] [facility] [address] [id number] [place] [address]- 3247 Sep, [facility] [place] [facility] [address] [id number] [place] [address]- 3079 Sep, [facility] [place] [facility] [address] [facility] [id number] [place] [address]- 3490 Sep, [facility] [place] [facility] [address] [id number] [place] [address]- 4883 Sep, [facility] [place] [facility] [address] [id number] [place] [address]- 0920 Sep, [facility] [place] [facility] [address] [id number] [place] [address]- 5097 09 Sep, 2013 [facility] [place] [facility] [address] [id number] [place] [address]- 4896 09 Sep, 2013 [facility] [place] [facility] [address] [facility] [id number] [place] [address]- 2982 07 Sep, 2013 [facility] [place] [facility] [address] [id number] [place] [address]- 9600 Sep, [facility] [place] [facility] [address] [id number] [place] [address]- 7706 Sep, [facility] [place] [facility] [address] [id number] [place] [address]- 4176 Sep, [facility] [place] [facility] [address] [id number] [place] [address]- 5613 Sep, [facility] [place] [facility] [address] [id number] [place] [address]- 0164 Sep, [facility] [place] [facility] [address] [id number] [place] [address]- 3794 August, [facility] [place] [facility] [address] [id number] [place] [address]- 4386 August, [facility] [place] [facility] [address] [id number] [place] [address]- 4661 August, [facility] [place] [facility] [address] [id number] [place] [address]- 8689 August, [facility] [place] [facility] [address] [id number] [place] [address]- 6240 August, [facility] [place] [facility] [address] [id number] [place] [address]- 8424 August, [facility] [place] [facility] [address] [id number] [place] [address]- 3566 August, [facility] [place] [facility] [address] [id number] [place] [address]- 5038 August, [facility] [place] [facility] [address] [id number] [place] 0896 August, [facility] [place] [facility] [address] [id number] [place] [address]- 8608 August, [facility] [place] [facility] [address] [id number] [place] [address]- 4008 August, [facility] [place] [facility] [address] [id number] [place] [address]- 9287 Jul, [facility] [place] [facility] [address] [id number] [place] [address]- 9748 Jul, [facility] [place] [facility] [address] [id number] [place] [address]- 3018 Jul, [facility] [place] [facility] [address] [id number] [place] [address]- 9820 Jul, [facility] [place] [facility] [address] [id number] [place] [address]- 1552 Jul, [facility] [place] [facility] [address] [id number] [place] [address]- 5369 Jul, [facility] [place] [facility] [address] [id number] [place] [address]- 0587 Jul, [facility] [place] [facility] [address] [id number] [place] [address]- 3406 Jul, [facility] [place] [facility] [address] [id number] [place] [address]- 0156 Jul, [facility] [place] [facility] [address] [id number] [place] [address]- 3346 Jul, [facility] [place] [facility] [address] [id number] [place] [address]- 9882 16 Jul, 2013 [facility] [place] [facility] [address] [id number] [place] [address]- 6629 Jul, [facility] [place] [facility] [address] [id number] [place] [address]- 7432 Jul, [facility] [place] [facility] [address] [id number] [place] [address]- 1077 Jul, [facility] [place] [facility] [address] [id number] [place] [address]- 0518 Jul, [facility] [place] [facility] [address] [id number] [place] [address]- 0408 Jul, [facility] [place] [facility] [address] [id number] [place] [address]- 3788 Jul, [facility] [place] [facility] [address] [id number] [place] [address]- 6069 Jul, [facility] [place] [facility] [address] [id number] [place] [address]- 6057 Jul, [facility] [place] [facility] [address] [id number] [place] [address]- 1247 Jul, [facility] [place] [facility] [address] [id number] [place] [address]- 7684 Jul, [facility] [place] [facility] [address] [id number] [place] [address]- 9650 Jul, [facility] [place] [facility] [address] [id number] [place] [address]- 9349 Jul, [facility] [place] [facility] [address] [id number] [place] [address]- 5269 Jun, [facility] [place] [facility] [address] [id number] [place] [address]- 3631 Jun, [facility] [place] [facility] [address] [id number] [place] [address]- 8012 Jun, [facility] [place] [facility] [address] [id number] [place] [address]- 5471 Jun, [facility] [place] [facility] [address] [id number] [place] [address] Jun, [facility] [place] [facility] [address] [id number] [place] [address] Jun, [facility] [place] [facility] [address] [id number] [place] [address] Jun, [facility] [place] [facility] [address] [id number] [place] [address] Jun, [facility] [place] [facility] [address] [id number] [place] [address] 18 Jun, 2013 [facility] [place] [facility] [address] [id number] [place] [address]- [address] 18 Jun, 2013 [facility] [place] [facility] [address] [id number] [place] [address] 7060 17 Jun, 2013 [facility] [place] [facility] [address] [id number] [place] [address]- [address] 17 Jun, 2013 [facility] [place] [facility] [address] [id number] [place] [address] 79[address] May, [facility] [place] [facility] [address] [id number] [place] [address] May, [facility] [place] [facility] [address] [id number] [place] [address] 95[address] Apr, [facility] [place] [facility] [address] [id number] [place] [address] Apr, [facility] [place] [facility] [address] [id number] [place] [address] 6[address] Apr, [facility] [place] [facility] [address] [id number] [place] [address]- [address]181 Apr, [facility] [place] [facility] [address] [id number] [place] [address]- 2274 Apr, [facility] [place] [facility] [address] [id number] [place] [address]- [address] Apr, [facility] [place] [facility] [address] [id number] [place] [address]- [address]647 Apr, [facility] [place] [facility] [address] [id number] [place] [address]- 2715 Apr, [facility] [place] [facility] [address] [id number] [place] [address]- [address] 14 Apr, 2013 [facility] [place] [facility] [address] [id number], [place] [address] Apr, [facility] [address] [id number] [place] [address]- 2021 Apr, [facility] [place] [facility] [address] [id number] [place] [address] Mar, [facility] [place] [facility] [address] [id number] [place] [address] 8[address] Mar, [facility] [place] [facility] [address] [id number] [place] [address] 9047 Mar, [facility] [place] [facility] [address] [id number] [place] [address] 1156 Mar, [facility] [place] [facility] [address] [id number] [place] [address]- 1771 Feb, [facility] [place] [facility] [address] [id number] [place] [address] 49[address] Feb, [facility] [place] [facility] [address] [id number] [place] [address] 84[address] Feb, [facility] [place] [facility] [address] [id number] [place] [address] Feb, [facility] [place] [facility] [address] [id number] [place] [address] 2840 Feb, [facility] [place] [facility] [address] [id number], [place] [address] Feb, [facility] [place] [facility] [address] [id number], [place] [address] Feb, [facility] [place] [facility] [address] [id number], [place] [address] 8[address] Feb, [facility] [place] [facility] [address] [id number], [place] [address] 280[address] Feb, [facility] [place] [facility] [address] [id number] [place] [address] 1405 Feb, [facility] [place] [facility] [address] [id number] [place] [address]- [address] 02 Feb, 2013 [facility] [place] [facility] [address] [id number] [place] [address] 7718 Jan, 2012 [facility] [place] [facility] [address] [id number] [place] [address]81 Jan, [facility] [place] [facility] [address] [id number] [place] [address]- [address]83 Jan, 2012 [facility] [place] [facility] [address] [id number] [place] [address]- 64[address] Jan, 2012 [facility] [place] [facility] [address] [id number] [place] [address]- 365[address] Jan, [facility] [place] [facility] [address] [id number] [place] [address] 6731 Jan, [facility] [place] [facility] [address] [id number] [place] [address] 269[address] Jan, [facility] [address] [id number] [place] [address]- [address]82 02 Jan, 2013 [facility] [place] [facility] [address] [id number] [place] [address]- 9268 30 Sep, 2012 [facility] [place] [facility] [address] [id number] [place] [address]- [address]246 25 Sep, 2012 [facility] [place] [facility] [address] [id number] [place] [address]- 254 18 Sep, 2012 [facility] [place] [facility] [address] [id number] [place] [address]- 2543 17 Sep, 2012 [facility] [place] [facility] [address] [id number] [place] [address] 2543 17 Sep, 2012 [facility] [place] [facility] [address] [id number] [place] [address]- 2547 16 Sep, 2012 [facility] [place] [facility] [address] [id number] [place] [address]- [address]43 13 Dec, 2012 [facility] [place] [facility] [address] [id number] [place] [address]- 2727 11 Dec, 2012 [facility] [place] [facility] [address] [id number] [place] [address]- 9261 05 Dec, 2012 [facility] [place] [facility] [address] [id number] [place] [address]- 4039 04 Dec, 2012 [facility] [place] [facility] [address] [id number] [place] [address]- 3167 30 Nov, 2012 [facility] [place] [facility] [address] [id number] [place] [address]- 4003 Nov, [facility] [place] [facility] [address] [id number] [place] [address]- 7763 Nov, [facility] [place] [facility] [address] [id number] [place] [address]- 5312 Nov, [facility] [place] [facility] [address] [id number] [place] [address]- 0783 Nov, [facility] [place] [facility] [address] [id number] [place] [address]- 0692 Nov, [facility] [place] [facility] [address] [id number] [place] [address]- 4683 Nov, [facility] [place] [facility] [address] [id number] [place] [address]- 8820 Oct, [facility] [place] [facility] [address] [id number] [place] [address]- 7886 Oct, [facility] [place] [facility] [address] [id number] [place] [address]- 9814 Oct, [facility] [place] [facility] [address] [id number] [place] [address]- 8291 Oct, [facility] [place] [facility] [address] [id number] [place] [address]- 8851 15 Oct, 2012 [facility] [place] [facility] [address] [id number] [place] [address]- 8029 Oct, [facility] [address] [id number] [place] [address]- 1143 28 Sep, 2012 [facility] [place] [facility] [address] [id number] [place] [address]- 2809 Sep, [facility] [address] [id number] [place] [address]- 5648 Sep, [facility] [place] [facility] [address] [id number] [place] [address]- 7196 14 Sep, 2012 [facility] [address] [id number] [place] [address]- 7610 13 Sep, 2012 [facility] [address] [id number] [place] [address]- 1191 Sep, [facility] [address] [id number] [place] [address]- 4593 Sep, [facility] [address] [id number] [place] [address]- 6938 Sep, [facility] [address] [id number] [place] [address]- 7227 Sep, [facility] [address] [id number] [place] [address]- 3273 August, [facility] [address] [id number] [place] [address] August, [facility] [place] [facility] [address] [id number] [place] [address] August, [facility] [place] [facility] [address] [id number] [place] [address] August, [facility] [place] [facility] [address] [id number] [place] [address] August, [facility] [place] [facility] [address] [id number] [place] [address] August, [facility] [place] [facility] [address] [id number] [place] [address] August, [facility] [address] [id number] [place] [address] August, [facility] [place] [address] [id number] [place] [address] Jul, [facility] [place] [address] [id number] [place] [address] Jul, [facility] [address] [place] [id number] Jul [facility] [address] [id number] [place] [address] Jun, [facility] [place] [address] [id number] [place] [address] Jun, [facility] [place] [address] [id number] [place] [address] Jun, [facility] [place] [address] [id number] [place] [address] Jun, [facility] [address] [id number] [place] [address] Jun, [facility] [place] [address] [facility] [id number] [place] [address] Jun, [facility] [place] [address] [id number] [place] [address] May, [facility] [place] [address] [id number] [place] [address] May, [facility] [address] [id number] [place] [address] May, [facility] [address] [id number] [place] [address] May, [facility] [place] [address] [id number] [place] [address] May, [facility] [address] [id number] [place] [address] Apr, [facility] [place] [facility] [address] [id number] [place] [address]68 Apr, [facility] [place] [facility] [address] [id number] [place] [address] Apr, [facility] [place] [facility] [address] [id number] [place] [address]46 Apr, [facility] [address] [id number] [place] [address] Apr, [facility] [address] [id number] [place] [address] Apr, [facility] [address] [id number] [place] [address] Mar, [facility] [place] [facility] [address] [id number] [place] [address] Mar, [facility] [place] [facility] [address] [id number] [place] [address] Mar, [facility] [place] [facility] [address] [id number] [place] [address] Mar, [facility] [place] [facility] [address] [id number] [place] [address]69 Mar, [facility] [place] [facility] [address] [id number], [place] [address] 18 Mar, 2012 [facility] [place] [facility] [address] [id number] [place] [address] 18 Mar, 2012 [facility] [place] [facility] [address] [id number] [place] [address] Mar, [facility] [place] [facility] [address] [id number] [place] [address] 10 Mar, 2012 [facility] [place] [facility] [address] [id number] [place] [address] 05 Mar, 2012 [facility] [place] [facility] [address] [id number] [place] [address] 05 Mar, 2012 [facility] [place] [facility] [address] [id number] [place] [address] Feb, [facility] [place] [facility] [address] [id number] [place] [address] Feb, [facility] [place] [facility] [address] [id number] [place] [address] Feb, [facility] [place] [facility] [address] [id number] [place] [address]169 Feb, [facility] [place] [facility] [address] [id number] [place] [address] Feb, [facility] [place] [facility] [address] [id number] [place] [address]60 Feb, [facility] [place] [facility] [address] [id number] [place] [address] 16[address] Feb, [facility] [place] [facility] [address] [id number] [place] [address]185 Feb, [facility] [place] [facility] [address] [facility] [id number] [place] [address] Feb, [facility] [place] [facility] [address] [id number] [place] [address] 2232 Feb, [facility] [place] [facility] [address] [id number], [place] [address] Feb, [facility] [place] [facility] [address] [id number] [place] [address]99 Jan, [facility] [place] [facility] [address] [facility] [id number] [place] [address]33 Jan, [facility] [place] [facility] [address] [facility] [id number], [place] [address] Jan, [facility] [place] [facility] [address] [id number] [place] [address] Jan, [facility] [place] [facility] [address] [id number] [place] [address]- 7961 Jan, [facility] [place] [facility] [address] [id number] [place] [address] 0206 Jan, [facility] [place] [facility] [address] [id number] [place] [address] 53[address] Jan, [facility] [place] [facility] [address] [id number] [place] [address] 24 Dec, 2011 [facility] [place] [facility] [address] [id number] [place] [address]7 17 Dec, 2011 [facility] [place] [facility] [address] [id number] [place] [address] 0662 13 Dec, 2011 [facility] [place] [facility] [address] [id number] [place] [address] 3950 12 Dec, 2011 [facility] [place] [facility] [address] [id number] [place] [address]- [address]666 Nov, [facility] [place] [facility] [address] [id number] [place] [address]- 2999 Nov, [facility] [place] [facility] [address] [id number] [place] [address]- 2032 17 Nov, 2011 [facility] [place] [facility] [address] [id number] [place] [address]- 1618 15 Nov, 2011 [facility] [place] [facility] [address] [id number] [place] [address]- 98[address] 14 Nov, 2011 [facility] [place] [facility] [address] [id number] [place] [address]- [address] 13 Nov, 2011 [facility] [place] [facility] [address] [id number] [place] [address]- 0674 10 Nov, 2011 [facility] [place] [facility] [address] [id number] [place] [address]- 9613 Nov, [facility] [place] [facility] [address] [id number] [place] [address]- 0879 Nov, [facility] [place] [facility] [address] [id number] [place] [address]- 6721 Nov, [facility] [place] [facility] [address] [id number] [place] [address]- 5182 Nov, [facility] [place] [facility] [address] [id number] [place] [address]- 2451 Nov, [facility] [place] [facility] [address] [id number] [place] [address]- 7101 Nov, [facility] [place] [facility] [address] [id number] [place] [address]- 2473 Oct, [facility] [place] [facility] [address] [id number] [place] [address]- 3332 Oct, [facility] [place] [facility] [address] [id number] [place] [address]- 6481 Oct, [facility] [place] [facility] [address] [id number] [place] [address]- 4143 Oct, [facility] [place] [facility] [address] [id number] [place] [address]- 6622 Oct, [facility] [place] [facility] [address] [id number] [place] [address]- 9310 Oct, [facility] [place] [facility] [address] [id number] [place] [address]- 3716 Oct, [facility] [place] [facility] [address] [id number] [place] [address]- 5050 Oct, [facility] [place] [facility] [address] [id number] [place] [address]- 4011 Oct, [facility] [place] [facility] [address] [id number] [place] [address]- 2888 Sep, [facility] [place] [facility] [address] [id number] [place] [address]- 0920 Sep, [facility] [address] [id number] [place] [address]- 6862 Sep, [facility] [place] [facility] [address] [id number] [place] [address]- 4486 Sep, [facility] [address] [id number] [place] [address]- 8381 Sep, [facility] [place] [facility] [address] [id number] [place] [address]- 9561 Sep, [facility] [address] [id number] [place] [address]- 2022 Sep, [facility] [address] [id number] [place] [address]- 7760 Sep, [facility] [address] [id number] [place] [address]- 2083 August, [facility] [address] [id number] [place] [address]- 1713 August, [facility] [address] [id number] [place] [address]- 7054 August, [facility] [address] [id number] [place] [address]- 6132 August, [facility] [place] [facility] [address] [id number] [place] [address]- 1198 August, [facility] [address] [id number] [place] [address]- 3508 August, [facility] [place] [facility] [address] [id number] [place] [address]- 7637 August, [facility] [place] [facility] [address] [id number] [place] [address]- 5018 August, [facility] [address] [id number] [place] [address]- 3396 August, [facility] [address] [facility] [id number] [place] [address] August, [facility] [address] [facility] [id number], [place] [address]296 August, [facility] [address] [facility] [id number], [place] [address] 9425 August, [facility] [address] [facility] [id number], [place] [address] Oct, IMMUNIZATIONS No Known Immunizations SOCIAL HISTORY Never Assessed REASON FOR VISIT Refill request PLAN OF CARE VITAL SIGNS MEDICATIONS Medication Instructions Dosage Frequency Start Date End Date Duration Status [employer]plus Insulin Syringe 31G X 5/16" 0.5 ML USE DIRECTED 4 TIMES A DAY 25 Active RESULTS No Results PROCEDURES No Known [...] Surgical History bladder surgery Hospitalization History Via [facility] for right groin pain 05/2011 Hospitalization History Via [facility] for wound on buttocks 08/2012 Hospitalization History Via [facility], hypoxia secondary to pneumonia 12/02-12/09 Hospitalization History Pneumonia, elevated CO2 on Bipap was in ICU 08/2013 Hospitalization History Hypoxia, Exacerbation COPD, Chest pain 09/05/15 Hospitalization History suicidal ideations-[place] 12/28 Hospitalization History hypoxia--[facility] 02/13/2016 Hospitalization History shortness of breath at june 2016 Hospitalization History Shortness of breath at august 2016 Hospitalization History SOB, chest pain at 12/2016
--- OUTSIDE RECORDS SUMMARY | 2017-11-24 17:52 | XMS REPORT ---
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 41772- 6666 22 Dec, 2014 [facility] [id number] [place] [address] 09414- 4705 21 Dec, 2014 [facility] [address] 35835- 3005 17 Dec, 2014 Affective disorder 296.90 [facility] [id number] [place] [address] 02889- 3162 14 Dec, 2014 [facility] [address] 39171- 3278 Dec, Affective disorder 296.90 [facility] [id number] [address] 2546 04 Dec, 2014 [facility] [id number], [place] [address] 2546 Dec, 2014 [facility] [id number] [address] 2546 Dec, 2014 [facility] [id number] [place] [address] 01630 2546 Dec, 2014 [facility] [id number] [place] [address] 43473- 7945 Nov, Affective disorder 296.90 [facility] [id number] [place] [address] 30445 2543 Nov, [facility] [id number] [place] [address] 54048 254 Nov, Affective disorder 296.90 [facility] [id number], [place] [address] 2546 Nov, Diarrhea 787.91 [facility] [id number] [place] [address] 50486 254 Nov, [facility] [id number], [place] [address] 2546 Nov, Diarrhea 787.91 [facility] [id number] [place] [address] 18220 2546 Nov, Diarrhea 787.91 and Hyperlipidemia 272.4 [facility] [id number] [place] [address] 83836 2546 Nov, Diarrhea 787.91 [facility] [id number] [address] 2546 Nov, Affective disorder 296.90 [facility] [id number] [address]- 4909 Nov, Affective disorder 296.90 [facility] [id number] [address]- 7225 Nov, Affective disorder 296.90 [facility] [id number], [place] [address]- 5393 Nov, [facility] [id number] [address]- 9774 Nov, [facility] [id number], [place] [address]- 6827 Nov, [facility] [id number] [place] [address] 61238- 8016 Nov, Episodic mood disorder 296.90 [facility] [id number], [place] [address]- 2340 Nov, [facility] [id number] [place] [address] 85117- 6929 Nov, [facility] [id number] [address]- 6048 Nov, [facility] [id number] [place] [address] 06563- 4778 Nov, [facility] [id number] [address]- 9908 Nov, [facility] [id number] [place] [address] 94316- 1584 Nov, Lymphedema 457.1 ; Hyperlipidemia 272.4 ; Essential hypertension, benign 401.1 and Numbness of toes 782.0 [facility] [id number] [address]- 0487 Nov, Episodic mood disorder 296.90 [facility] [id number] [address]- 1181 Oct, [facility] [id number], [place] [address]- 4813 Oct, 2014 [facility] [address] [facility] [id number] [place] [address]- 3283 15 Oct, 2014 [facility] [place] [facility] [address] [facility] [id number] [place] [address]- 4197 Oct, 2014 [facility] [address] [facility] [id number] [place] [address]- 2485 14 Oct, 2014 [facility] [address] [facility] [id number] [place] [address]- 5527 Oct, 2014 [facility] [address] [facility] [id number] [place] [address]- 9042 Oct, 2014 [facility] [address] [facility] [id number] [place] [address]- 5017 Oct, 2014 [facility] [address] [facility] [id number] [place] [address]- 6973 Oct, Episodic mood disorder 296.90 [facility] [address] [facility] [id number] [place] [address]- 0473 30 Sep, 2014 [facility] [address] [facility] [id number] [place] [address]- 6555 Sep, [facility] [address] [facility] [id number] [place] [address]- 5153 Sep, [facility] [address] [facility] [id number] [place] [address]- 9815 Sep, [facility] [place] [facility] [address] [facility] [id number] [place] [address]- 2787 Sep, [facility] [place] [facility] [address] [facility] [id number] [place] [address]- 8863 Sep, Episodic mood disorder 296.90 [facility] [place] [facility] [address] [facility] [id number] [place] [address]- 4347 Sep, Unspecified episodic mood disorder 296.90 [facility] [address] [facility] [id number] [place] [address]- 3666 Sep, [facility] [id number], [place] [address]- 1675 Sep, [facility] [id number] [place] [address] 39631- 0258 Sep, Episodic mood disorder 296.90 [facility] [id number] [place] [address] 80438- 0664 Sep, [facility] [id number] [place] [address] 27807- 8665 Sep, [facility] [id number] [place] [address] 74897- 6997 Sep, [facility] [id number] [place] [address] 63808- 8446 Sep, Hematemesis 578.0 and Vomiting 787.03 [facility] [id number] [place] [address] 01991- 1449 Sep, Episodic mood disorder 296.90 [facility] [id number] [place] [address] 90325- 5345 Sep, [facility] [id number] [place] [address] 86459- 5608 Sep, [facility] [address], [place] [address]- 5662 Sep, Diabetes mellitus without mention of complication, type II or unspecified type, not stated as uncontrolled 250.00 and Other chronic pain 338.29 [facility] [id number], [place] [address]- 6871 05 Sep, 2014 Episodic mood disorder 296.90 [facility] [id number] [place] [address] 31071- 5456 Sep, [facility] [id number] [address]- 0995 Sep, Episodic mood disorder 296.90 [facility] [id number] [address]- 6338 Sep, [facility] [id number], [place] [address]- 3637 August, [facility] [id number], [place] [address]- 2885 August, [facility] [id number], [place] [address]- 2906 August, Episodic mood disorder 296.90 [facility] [id number], [place] [address]- 9128 August, [facility] [id number] [address]- 6435 August, Unspecified episodic mood disorder 296.90 [facility] [id number] [address]- 5823 August, Vomiting 787.03 [facility] [id number], [place] [address]- 7023 August, [facility] [id number], [place] [address]- 0440 August, [facility] [id number], [place] [address]- 1370 August, [facility] [id number], [place] [address]- 4847 August, [facility] [id number], [place] [address]- 8070 August, [facility] [id number] [place] [address]- 1219 Jul, [facility] [id number], [place] [address]- 7904 Jul, [facility] [id number], [place] [address]- 5225 Jul, [facility] [id number] [place] [address]- 9915 30 Jun, 2014 [facility] [place] [facility] [address] [id number] [place] [address]- 0273 30 Jun, 2014 [facility] [place] [facility] [address] [id number] [place] [address]- 6416 Jun, [facility] [place] [facility] [address] [id number] [place] [address]- 1836 Jun, 2014 [facility] [place] [facility] [address] [id number] [place] [address]- 2885 Jun, [facility] [place] [facility] [address] [id number] [place] [address]- 0079 Jun, [facility] [place] [facility] [address] [id number] [place] [address]- 6283 Jun, [facility] [place] [facility] [address] [id number] [place] [address]- 0689 Jun, [facility] [place] [facility] [address] [id number] [place] [address]- 6953 Jun, [facility] [place] [facility] [address] [id number] [place] [address]- 6149 Jun, [facility] [place] [facility] [address] [id number] [place] [address]- 3595 Jun, [facility] [place] [facility] [address] [id number] [place] [address]- 4289 Jun, [facility] [place] [facility] [address] [id number] [place] [address]- 4303 Jun, [facility] [place] [facility] [address] [id number] [place] [address]- 5572 Jun, [facility] [place] [facility] [address] [id number] [place] [address]- 0221 Jun, [facility] [place] [facility] [address] [id number] [place] [address]- 6545 Jun, [facility] [place] [facility] [address] [id number] [place] [address]- 1050 23 Jun, 2014 [facility] [place] [facility] [address] [id number] [place] [address]- 4321 23 Jun, 2014 [facility] [place] [facility] [address] [id number] [place] [address]- 4990 23 Jun, 2014 [facility] [place] [facility] [address] [id number] [place] [address]- 4648 21 Jun, 2014 [facility] [place] [facility] [address] [id number] [place] [address]- 0533 21 Jun, 2014 [facility] [place] [facility] [address] [id number] [place] [address]- 7938 20 Jun, 2014 [facility] [place] [facility] [address] [id number] [place] [address] 20 Jun, 2014 [facility] [place] [facility] [address] [id number] [place] [address] 20 Jun, 2014 [facility] [place] [facility] [address] [id number] [place] [address] 20 Jun, 2014 [facility] [place] [facility] [address] [id number] [place] [address] 19 Jun, 2014 [facility] [place] [facility] [address] [id number] [place] [address] 68[address] 19 Jun, 2014 [facility] [place] [facility] [address] [id number] [place] [address] 18 Jun, 2014 [facility] [place] [facility] [address] [id number] [place] [address] 18 Jun, 2014 [facility] [place] [facility] [address] [id number] [place] [address] 8465 17 Jun, 2014 [facility] [place] [facility] [address] [id number] [place] [address]- 75[address] 17 Jun, 2014 [facility] [place] [facility] [address] [id number] [place] [address]- 9346 16 Jun, 2014 [facility] [place] [facility] [address] [id number] [place] [address]- 1643 16 Jun, 2014 [facility] [place] [facility] [address] [id number] [place] [address]- 3796 16 Jun, 2014 [facility] [place] [facility] [address] [id number] [place] [address]- 3116 16 Jun, 2014 [facility] [place] [facility] [address] [id number] [place] [address]- 1132 16 Jun, 2014 [facility] [place] [facility] [address] [id number] [place] [address] Jun, [facility] [place] [facility] [address] [id number] [place] [address]- [address] Jun, [facility] [place] [facility] [address] [id number] [place] [address]- [address] Jun, [facility] [place] [facility] [address] [id number] [place] [address]- [address]604 Jun, [facility] [place] [facility] [address] [id number] [place] [address]- 67[address] Jun, [facility] [place] [facility] [address] [id number] [place] [address]- [address] Jun, [facility] [place] [facility] [address] [id number] [place] [address]- [address]81 Jun, [facility] [place] [facility] [address] [id number] [place] [address]696 Jun, 2014 [facility] [place] [facility] [address] [id number] [place] [address]- 27[address] Jun, [facility] [place] [facility] [address] [id number] [place] [address]- [address] Jun, [facility] [place] [facility] [address] [id number] [place] [address]- 2464 Jun, [facility] [place] [facility] [address] [id number] [place] [address] 05 Jun, 2014 [facility] [place] [facility] [address] [id number] [place] [address]- 2805 Jun, [facility] [place] [facility] [address] [id number] [place] [address]- 78[address] Jun, [facility] [place] [facility] [address] [id number] [place] [address]- 6[address] Jun, [facility] [place] [facility] [address] [id number] [place] [address]- [address] Jun, [facility] [place] [facility] [address] [id number] [place] [address]- 30[address] Jun, [facility] [place] [facility] [address] [facility] [id number] [place] [address]- 7948 Jun, [facility] [place] [facility] [address] [id number] [place] [address]- 6566 Jun, [facility] [place] [facility] [address] [facility] [id number] [place] [address]- [address]596 Jun, [facility] [place] [facility] [address] [id number] [place] [address]- 8406 Jun, [facility] [place] [facility] [address] [facility] [id number] [place] [address]- [address] May, [facility] [place] [facility] [address] [id number] [place] [address]- [address]679 May, [facility] [place] [facility] [address] [id number] [place] [address]- 36[address] May, [facility] [place] [facility] [address] [id number] [place] [address]- [address] May, [facility] [place] [facility] [address] [facility] [id number] [place] [address]- 90[address] May, [facility] [place] [facility] [address] [id number] [place] [address]- [address] b, 2014 [facility] [place] [facility] [address] [facility] [id number] [place] [address]- [address]75 20 May, 2014 [facility] [place] [facility] [address] [facility] [id number] [place] [place] [address] 20 May, 2014 [facility] [place] [facility] [address] [facility] [id number] [place] [address] 9604 20 May, 2014 [facility] [place] [facility] [address] [facility] [id number] [place] [address]- 7550 20 May, 2014 [facility] [place] [facility] [address] [facility] [id number] [place] [address]- 5684 18 May, 2014 [facility] [place] [facility] [address] [facility] [id number] [place] [address]- 7591 18 May, 2014 [facility] [place] [facility] [address] [id number] [place] [address] 6766 13 May, 2014 [facility] [place] [facility] [address] [facility] [id number] [place] [address]- 4666 13 May, 2014 [facility] [place] [facility] [address] [facility] [id number] [place] [address]- 8297 11 May, 2014 [facility] [place] [facility] [address] [facility] [id number] [place] [address]- 0969 May, 2014 [facility] [place] [facility] [address] [facility] [id number] [place] [address]- 0046 May, 2014 [facility] [place] [facility] [address] [facility] [id number] [place] [address]- 2541 11 May, 2014 [facility] [place] [facility] [address] [facility] [id number] [place] [address]- 8374 09 May, 2014 [facility] [place] [facility] [address] [facility] [id number], [place] [address] 4035 09 May, 2014 [facility] [place] [facility] [address] [id number] [place] [address]- 0715 May, 2014 [facility] [place] [facility] [address] [id number] [place] [address]- 1229 May, [facility] [place] [facility] [address] [id number] [place] [address]- 1776 May, [facility] [place] [facility] [address] [id number] [place] [address]- 0943 May, 2014 [facility] [place] [facility] [address] [id number] [place] [address]- 1789 May, 2014 [facility] [place] [facility] [address] [id number] [place] [address]- 2438 May, [facility] [place] [facility] [address] [id number] [place] [address]- 1466 May, [facility] [place] [facility] [address] [id number] [place] [address]- 0279 Apr, [facility] [place] [facility] [address] [id number] [place] [address]- 7888 Apr, [facility] [place] [facility] [address] [id number] [place] [address]- 7269 Apr, [facility] [place] [facility] [address] [id number] [place] [address]- 5040 Apr, [facility] [place] [facility] [address] [id number], [place] [address]- 5912 Apr, [facility] [place] [facility] [address] [id number], [place] [address]- 5093 Apr, [facility] [place] [facility] [address] [id number] [place] [address]- 1894 Apr, [facility] [place] [facility] [address] [id number] [place] [address]- 7476 Apr, [facility] [place] [facility] [address] [id number] [place] [address]- 5870 Apr, [facility] [place] [facility] [address] [id number] [place] [address]- 9137 15 Apr, 2014 [facility] [address] [id number] [place] [address]- 2265 Apr, [facility] [address] [id number] [place] [address]- 7464 Apr, [facility] [address] [id number] [place] [address]- 4805 Apr, [facility] [address] [id number] [place] [address]- 9027 Apr, [facility] [address] [id number] [place] [address]- 1465 Apr, [facility] [address] [id number] [place] [address]- 9997 Apr, [facility] [address] [id number] [place] [address]- 3279 Apr, [facility] [address] [id number] [place] [address]- 1429 Apr, [facility] [address] [id number] [place] [address]- 4499 Apr, [facility] [address] [id number] [place] [address]- 1471 Apr, [facility] [address] [id number] [place] [address]- 8698 Mar, [facility] [address] [id number] [place] [address]- 1854 Mar, [facility] [place] [facility] [address] [id number] [place] [address]- 5181 Mar, [facility] [place] [facility] [address] [id number] [place] [address]- 3866 Mar, [facility] [address] [id number] [place] [address]- 3392 Mar, [facility] [place] [facility] [address] [id number] [place] [address]- 5089 Mar, [facility] [place] [facility] [address] [id number] [place] [address]- 0181 Mar, [facility] [place] [facility] [address] [id number] [place] [address] Mar, [facility] [place] [facility] [address] [id number] [place] [address]- 5107 Mar, [facility] [place] [facility] [address] [id number] [place] [address]- 5138 Mar, [facility] [place] [facility] [address] [id number] [place] [address]- 2034 Mar, [facility] [place] [facility] [address] [id number] [place] [address]- 7532 Mar, [facility] [place] [facility] [address] [id number] [place] [address]- 4408 Mar, [facility] [place] [facility] [address] [id number] [place] [address]- 5220 Mar, [facility] [place] [facility] [address] [id number] [place] [address]- 7857 Mar, [facility] [place] [facility] [address] [id number] [place] [address]- 9240 Mar, [facility] [place] [facility] [address] [id number] [place] [address]- 2573 Feb, [facility] [place] [facility] [address] [id number] [place] [address]- 5148 Feb, [facility] [place] [facility] [address] [id number] [place] [address]50 Feb, [facility] [place] [facility] [address] [id number] [place] [address]- 6534 Feb, [facility] [place] [facility] [address] [id number] [address]- 3191 20 Feb, 2014 [facility] [place] [facility] [address] [id number] [place] [address]- 4828 19 Feb, 2014 [facility] [place] [facility] [address] [id number] [place] [address]- 1735 19 Feb, 2014 [facility] [place] [facility] [address] [id number] [place] [address]- 8722 18 Feb, 2014 [facility] [place] [facility] [address] [id number] [place] [address]- 2150 18 Feb, 2014 [facility] [place] [facility] [address] [id number] [place] [address]- 0927 17 Feb, 2014 [facility] [place] [facility] [address] [id number] [place] [address]- 6654 17 Feb, 2014 [facility] [place] [facility] [address] [id number] [place] [address]- 5129 17 Feb, 2014 [facility] [place] [facility] [address] [id number] [place] [address]- 9590 17 Feb, 2014 [facility] [place] [facility] [address] [id number] [place] [address]- 2478 14 Feb, 2014 [facility] [place] [facility] [address] [id number] [place] [address]- 9402 14 Feb, 2014 [facility] [place] [facility] [address] [id number] [place] [address]- 1151 14 Feb, 2014 [facility] [place] [facility] [address] [id number] [place] [address]- 1322 14 Feb, 2014 [facility] [place] [facility] [address] [id number] [place] [address]- 9173 10 Feb, 2014 [facility] [place] [facility] [address] [id number] [place] [address]- 6110 10 Feb, 2014 [facility] [place] [facility] [address] [id number] [place] [address]- 1476 04 Feb, 2014 [facility] [place] [facility] [address] [id number] [place] [address]- 1403 Feb, [facility] [place] [facility] [address] [id number] [place] [address]- 1545 Jan, [facility] [place] [facility] [address] [id number] [place] [address]- 8913 Jan, [facility] [place] [facility] [address] [id number] [place] [address]- 0270 Jan, [facility] [place] [facility] [address] [id number] [place] [address]- 4590 Jan, [facility] [place] [facility] [address] [id number] [place] [address]- 3122 Jan, [facility] [place] [facility] [address] [id number] [place] [address]- 3126 Jan, [facility] [place] [facility] [address] [id number] [place] [address]- 5553 Jan, [facility] [place] [facility] [address] [id number] [place] [address]- 9456 Jan, [facility] [place] [facility] [address] [id number] [place] [address]- 9673 Jan, [facility] [place] [facility] [address] [id number] [place] [address]- 9378 Jan, [facility] [place] [facility] [address] [id number] [place] [address]- 9965 Jan, [facility] [place] [facility] [address] [id number] [place] [address]- 3550 Jan, [facility] [place] [facility] [address] [id number] [place] [address]- 6466 Jan, [facility] [place] [facility] [address] [id number] [place] [address]- 8220 Jan, [facility] [place] [facility] [address] [id number] [place] [address]- 1109 Jan, [facility] [place] [facility] [address] [id number] [place] [address]- 8075 15 Jan, 2014 [facility] [place] [facility] [address] [id number] [place] [address]- 7402 14 Jan, 2014 [facility] [place] [facility] [address] [id number] [place] [address]- 6891 14 Jan, 2014 [facility] [place] [facility] [address] [id number] [place] [address]- 1508 13 Jan, 2014 [facility] [place] [facility] [address] [id number] [place] [address]- 3677 Jan, [facility] [place] [facility] [address] [id number] [place] [address]- 3042 Jan, [facility] [place] [facility] [address] [id number] [place] [address]- 1220 Jan, [facility] [place] [facility] [address] [id number] [place] [address]- 2738 10 Jan, 2014 [facility] [place] [facility] [address] [id number] [place] [address]- 3674 02 Jan, 2014 [facility] [place] [facility] [address] [id number], [place] [address]- 9635 02 Jan, 2014 [facility] [place] [facility] [address] [id number], [place] [address]- 6925 25 Dec, 2013 [facility] [place] [facility] [address] [id number], [place] [address]- 6815 25 Dec, 2013 [facility] [place] [facility] [address] [id number] [place] [address]- 3164 23 Dec, 2013 [facility] [place] [facility] [address] [id number] [place] [address]- 4891 23 Dec, 2013 [facility] [place] [facility] [address] [id number] [place] [address]- 5255 19 Dec, 2013 [facility] [place] [facility] [address] [id number] [place] [address]- 9660 19 Sep, 2013 [facility] [place] [facility] [address] [id number] [place] [address]- 1736 17 Sep, 2013 [facility] [place] [facility] [address] [id number] [place] [address]- 7726 17 Sep, 2013 [facility] [place] [facility] [address] [id number] [place] [address]- 3076 09 Sep, 2013 [facility] [place] [facility] [address] [id number] [place] [address]- 6141 09 Sep, 2013 [facility] [place] [facility] [address] [id number] [place] [address]- 0591 08 Sep, 2013 [facility] [place] [facility] [address] [id number] [place] [address]- 4820 08 Sep, 2013 [facility] [place] [facility] [address] [id number] [place] [address]- 8438 04 Sep, 2013 [facility] [place] [facility] [address] [id number] [place] [address]- 8024 04 Sep, 2013 [facility] [place] [facility] [address] [id number] [place] [address]- 7356 02 Sep, 2013 [facility] [place] [facility] [address] [id number] [place] [address]- 7389 02 Sep, 2013 [facility] [place] [facility] [address] [id number] [place] [address]- 1734 Dec, 2013 [facility] [place] [facility] [address] [id number] [place] [address]- 2545 Dec, 2013 [facility] [place] [facility] [address] [id number] [place] [address]- 5837 Nov, [facility] [place] [facility] [address] [id number] [place] [address]- 6937 Nov, [facility] [place] [facility] [address] [id number] [place] [address]- 1788 Nov, [facility] [place] [facility] [address] [id number] [place] [address]- 5339 Nov, [facility] [place] [facility] [address] [id number] [place] [address]- 6607 Nov, [facility] [place] [facility] [address] [id number] [place] [address]- 8199 Nov, [facility] [place] [facility] [address] [id number] [place] [address]- 8630 Nov, [facility] [place] [facility] [address] [id number] [place] [address]- 2126 Nov, [facility] [place] [facility] [address] [id number] [place] [address]- 6856 Nov, [facility] [place] [facility] [address] [id number] [place] [address]- 1584 Nov, [facility] [place] [facility] [address] [id number] [place] [address]- 1963 Nov, [facility] [place] [facility] [address] [id number] [place] [address]- 3593 Nov, [facility] [place] [facility] [address] [id number] [place] [address]- 4101 Oct, [facility] [place] [facility] [address] [id number] [place] [address]- 1551 Oct, [facility] [place] [facility] [address] [id number] [place] [address]- 2439 Oct, [facility] [place] [facility] [address] [id number] [place] [address]- 0668 Oct, [facility] [place] [facility] [address] [id number] [place] [address]- 7367 Oct, [facility] [place] [facility] [address] [id number] [place] [address]- 1008 Oct, [facility] [place] [facility] [address] [id number] [place] [address]- 5075 Oct, [facility] [place] [facility] [address] [id number] [place] [address]- 9153 Oct, [facility] [place] [facility] [address] [id number] [place] [address]- 6365 Oct, [facility] [place] [facility] [address] [id number] [place] [address]- 3022 Oct, [facility] [place] [facility] [address] [id number] [place] [address]- 5072 Oct, [facility] [place] [facility] [address] [id number] [place] [address]- 4312 Oct, [facility] [place] [facility] [address] [id number] [place] [address]- 4867 Oct, [facility] [place] [facility] [address] [id number] [place] [address]- 9562 Oct, [facility] [place] [facility] [address] [id number] [place] [address]- 5728 Oct, [facility] [place] [facility] [address] [id number] [place] [address]- 9163 Oct, [facility] [place] [facility] [address] [id number] [place] [address]- 2701 Oct, [facility] [place] [facility] [address] [id number] [place] [address]- 5880 Sep, [facility] [place] [facility] [address] [id number] [place] [address]- 0551 Sep, [facility] [place] [facility] [address] [id number] [place] [address]- 8687 Sep, [facility] [place] [facility] [address] [id number] [place] [address]- 9318 Sep, [facility] [place] [facility] [address] [id number] [place] [address]- 8917 18 Sep, 2013 [facility] [place] [facility] [address] [id number] [place] [address]- 1238 18 Sep, 2013 [facility] [place] [facility] [address] [id number] [place] [address]- 1399 17 Sep, 2013 [facility] [place] [facility] [address] [id number] [place] [address]- 6430 17 Sep, 2013 [facility] [place] [facility] [address] [id number] [place] [address]- 5500 11 Sep, 2013 [facility] [place] [facility] [address] [id number] [place] [address]- 8204 Sep, [facility] [place] [facility] [address] [id number] [place] [address]- 3406 Sep, [facility] [place] [facility] [address] [id number] [place] [address]- 4765 Sep, [facility] [place] [facility] [address] [id number] [place] [address]- 6299 Sep, [facility] [place] [facility] [address] [id number] [place] [address]- 9629 Sep, [facility] [place] [facility] [address] [id number] [place] [address]- 3485 Sep, [facility] [place] [facility] [address] [id number] [place] [address]- 9907 09 Sep, 2013 [facility] [place] [facility] [address] [id number] [place] [address]- 6825 07 Sep, 2013 [facility] [place] [facility] [address] [id number] [place] [address]- 3166 07 Sep, 2013 [facility] [place] [facility] [address] [id number] [place] [address]- 6434 05 Sep, 2013 [facility] [place] [facility] [address] [id number] [place] [address]- 2504 05 Sep, 2013 [facility] [place] [facility] [address] [id number] [place] [address]- 5742 Sep, [facility] [place] [facility] [address] [id number] [place] [address]- 6842 Sep, [facility] [place] [facility] [address] [id number] [place] [address]- 3700 August, [facility] [place] [facility] [address] [id number] [place] [address]- 7922 August, [facility] [place] [facility] [address] [id number] [place] [address]- 6206 August, [facility] [place] [facility] [address] [id number] [place] [address]- 4765 August, [facility] [place] [facility] [address] [id number] [place] [address]- 9283 August, [facility] [place] [facility] [address] [id number] [place] [address]- 9257 August, [facility] [place] [facility] [address] [id number] [place] [address]- 3278 August, [facility] [place] [facility] [address] [id number] [place] [address]- 2435 August, [facility] [place] [facility] [address] [id number] [place] [address]- 8060 August, [facility] [place] [facility] [address] [id number] [place] [address] August, [facility] [place] [facility] [address] [id number] [place] [address] August, [facility] [place] [facility] [address] [id number] [place] [address] Jul, [facility] [place] [facility] [address] [id number] [place] [address] Jul, [facility] [place] [facility] [address] [id number] [place] [address] Jul, [facility] [place] [facility] [address] [id number] [place] [address] Jul, [facility] [place] [facility] [address] [id number] [place] [address] Jul, [facility] [place] [facility] [address] [id number] [place] [address] Jul, [facility] [place] [facility] [address] [id number] [place] [address]- [address] Jul, [facility] [place] [facility] [address] [id number] [place] [address]778 Jul, [facility] [place] [facility] [address] [id number] [place] [address]- [address] Jul, [facility] [place] [facility] [address] [id number] [place] [address]- 5826 18 Jul, 2013 [facility] [place] [facility] [address] [id number] [place] [address]- 39[address] 16 Jul, 2013 [facility] [place] [facility] [address] [id number] [place] [address]- [address] 14 Jul, 2013 [facility] [place] [facility] [address] [id number] [place] [address]- 5929 14 Jul, 2013 [facility] [place] [facility] [address] [id number] [place] [address]- [address] Jul, [facility] [place] [facility] [address] [id number] [place] [address]- [address] Jul, [facility] [place] [facility] [address] [id number] [place] [address]- [address] 10 Jul, 2013 [facility] [place] [facility] [address] [id number] [place] [address]- 40[address] 10 Jul, 2013 [facility] [place] [facility] [address] [id number] [place] [address]- [address] 05 Jul, 2013 [facility] [place] [facility] [address] [id number] [place] [address]- [address] Jul, [facility] [place] [facility] [address] [id number] [place] [address]- [address] Jul, [facility] [place] [facility] [address] [id number] [place] [address]- [address] Jul, [facility] [place] [facility] [address] [id number] [place] [address]- [address] Jul, [facility] [place] [facility] [address] [id number] [place] [address]- 17[address] Jul, [facility] [place] [facility] [address] [id number] [place] [address]- [address] Jun, [facility] [place] [facility] [address] [id number] [place] [address]- 8[address] Jun, [facility] [place] [facility] [address] [id number] [place] [address]- 32[address] Jun, [facility] [place] [facility] [address] [id number] [place] [address]- 0285 Jun, [facility] [place] [facility] [address] [id number] [place] [address]- [address] Jun, [facility] [place] [facility] [address] [id number] [place] [address]- [address] Jun, [facility] [place] [facility] [address] [id number] [place] [address]- [address] Jun, [facility] [place] [facility] [address] [id number] [place] [address]- 2858 Jun, [facility] [place] [facility] [address] [id number] [place] [address]- [address] Jun, [facility] [place] [facility] [address] [id number] [place] [address]- 4[address] Jun, [facility] [place] [facility] [address] [id number] [place] [address]- [address]206 Jun, [facility] [place] [facility] [address] [id number] [place] [address]- 8924 Jun, [facility] [place] [facility] [address] [id number] [place] [address]- 6097 May, [facility] [place] [facility] [address] [id number] [place] [address]- 8976 May, [facility] [place] [facility] [address] [id number] [place] [address]- 0255 Apr, [facility] [place] [facility] [address] [id number] [place] [address]- 8066 Apr, [facility] [place] [facility] [address] [id number] [place] [address]- 1079 Apr, [facility] [place] [facility] [address] [id number] [place] [address]- 1339 Apr, [facility] [place] [facility] [address] [id number] [place] [address]- 3687 Apr, [facility] [place] [facility] [address] [id number] [place] [address]- 5310 Apr, [facility] [place] [facility] [address] [id number] [place] [address]- 3688 Apr, [facility] [place] [facility] [address] [id number] [place] [address]- 3064 Apr, [facility] [place] [facility] [address] [id number] [place] [address]- 9248 Apr, [facility] [place] [facility] [address] [id number], [place] [address]- [address] Apr, [facility] [place] [facility] [address] [id number] [place] [address]- 1609 Apr, [facility] [place] [facility] [address] [id number] [place] [address]- 8238 Mar, [facility] [place] [facility] [address] [id number] [place] [address]- [address]28 Mar, [facility] [place] [facility] [address] [id number] [place] [address] Mar, [facility] [address] [id number] [place] [address]- 2436 Mar, [facility] [place] [facility] [address] [id number] [place] [address]- 3036 Feb, [facility] [address] [id number] [place] [address]- 7247 Feb, [facility] [place] [facility] [address] [id number] [place] [address]- 2443 Feb, [facility] [place] [facility] [address] [id number] [place] [address]- 2374 Feb, [facility] [place] [facility] [address] [id number] [place] [address]- 2477 Feb, [facility] [address] [id number] [place] [address]- 4196 Feb, [facility] [place] [facility] [address] [id number] [place] [address]- 4698 Feb, [facility] [place] [facility] [address] [id number] [place] [address]- 2154 Feb, [facility] [place] [facility] [address] [facility] [id number] [place] [address]- 4820 Feb, [facility] [place] [facility] [address] [id number] [place] [address]- 5787 Feb, [facility] [place] [facility] [address] [id number], [place] [address] 4148 Feb, [facility] [place] [facility] [address] [id number] [place] [address] Jan, [facility] [place] [facility] [address] [id number], [place] [address]- 30[address] Jan, [facility] [place] [facility] [address] [id number] [address] Jan, [facility] [place] [facility] [address] [id number] [place] [address]- 8921 11 Jan, 2013 [facility] [place] [facility] [address] [id number] [place] [address]- 9415 10 Jan, 2013 [facility] [place] [facility] [address] [id number] [place] [address]- 1594 10 Jan, 2013 [facility] [place] [facility] [address] [id number] [place] [address]- 1054 03 Jan, 2013 [facility] [place] [facility] [address] [id number] [place] [address] 02 Jan, 2013 [facility] [place] [facility] [address] [id number] [place] [address] 7901 30 Dec, 2012 [facility] [place] [facility] [address] [id number] [place] [address] 25 Sep, 2012 [facility] [place] [facility] [address] [id number] [place] [address] 4[address] 18 Sep, 2012 [facility] [place] [facility] [address] [id number] [place] [address] 8433 17 Sep, 2012 [facility] [place] [facility] [address] [id number] [place] [address] 5818 17 Sep, 2012 [facility] [place] [facility] [address] [id number] [place] [address] 6825 16 Sep, 2012 [facility] [place] [facility] [address] [id number] [place] [address]- 2544 13 Sep, 2012 [facility] [place] [facility] [address] [id number] [place] [address] 8494 11 Sep, 2012 [facility] [place] [facility] [address] [id number] [place] [address]- 2541 05 Sep, 2012 [facility] [place] [facility] [address] [id number] [place] [address] 9163 04 Sep, 2012 [facility] [place] [facility] [address] [id number] [place] [address] 3938 Nov, [facility] [place] [facility] [address] [id number] [place] [address]- 0969 Nov, [facility] [place] [facility] [address] [id number] [place] [address]- 3650 Nov, [facility] [place] [facility] [address] [id number] [place] [address]- 5038 Nov, [facility] [place] [facility] [address] [id number] [place] [address]- 6786 Nov, [facility] [place] [facility] [address] [id number] [place] [address]- 0472 Nov, [facility] [place] [facility] [address] [id number] [place] [address]- 5509 Nov, [facility] [place] [facility] [address] [id number] [place] [address] 1080 Oct, [facility] [place] [facility] [address] [id number] [place] [address]- 6995 Oct, [facility] [place] [facility] [address] [id number] [place] [address]- 6473 Oct, [facility] [place] [facility] [address] [id number] [place] [address]- 2726 Oct, [facility] [place] [facility] [address] [id number] [place] [address]- 4433 Oct, [facility] [place] [facility] [address] [id number] [place] [address]- 0747 Oct, [facility] [place] [facility] [address] [id number] [place] [address]- 5547 Sep, [facility] [place] [facility] [address] [id number] [place] [address]- 3477 Sep, [facility] [place] [facility] [address] [id number] [place] [address]- 6927 Sep, [facility] [place] [facility] [address] [id number] [place] [address] 6801 14 Sep, 2012 [facility] [address] [id number] [place] [address] 3839 13 Sep, 2012 [facility] [address] [id number] [place] [address] 5516 10 Sep, 2012 [facility] [address] [id number] [place] [address]- 5864 07 Sep, 2012 [facility] [address] [id number] [place] [address] 1523 06 Sep, 2012 [facility] [address] [id number] [place] [address]- 9171 05 Sep, 2012 [facility] [address] [id number] [place] [address] 6853 August, [facility] [address] [id number] [place] [address]- 5756 August, [facility] [address] [id number] [place] [address]- 2645 August, [facility] [address] [id number] [place] [address]- 1376 August, [facility] [address] [id number] [place] [address]- 3321 August, [facility] [address] [id number] [place] [address]- 7806 August, [facility] [address] [id number] [place] [address]- 0126 August, [facility] [address] [id number] [place] [address]- 8746 August, [facility] [address] [id number] [place] [address]- 6616 Jul, [facility] [address] [id number] [place] [address]- 7309 Jul, [facility] [address] [facility] [place] [id number] Jul [facility] [address] [id number] [place] [address] Jun, [facility] [address] [id number] [place] [address]- 1356 Jun, [facility] [address] [id number] [place] [address]- 3124 Jun, [facility] [address] [id number] [place] [address]- 2409 Jun, [facility] [address] [id number] [place] [address]- 3630 Jun, [facility] [address] [id number] [place] [address]- 4226 Jun, [facility] [address] [id number] [place] [address]- 7655 May, [facility] [address] [id number] [place] [address]- 3770 May, [facility] [address] [id number] [place] [address]- 3312 May, [facility] [address] [id number] [place] [address]- 5948 May, [facility] [address] [id number] [place] [address]- 9926 May, [facility] [address] [id number] [place] [address]- 4281 Apr, [facility] [address] [id number] [place] [address]- 3546 Apr, [facility] [address] [id number] [place] [address]- 9081 Apr, [facility] [address] [id number] [place] [address]- 0389 Apr, [facility] [address] [id number] [place] [address]- 6179 Apr, [facility] [place] [facility] [address] [id number] [place] [address]- 5386 Apr, [facility] [place] [facility] [address] [id number] [place] [address]- 2026 Mar, [facility] [place] [facility] [address] [id number] [place] [address]- 9071 Mar, [facility] [place] [facility] [address] [id number] [place] [address]- 5575 Mar, [facility] [place] [facility] [address] [id number] [place] [address]- 8695 Mar, [facility] [place] [facility] [address] [id number] [place] [address]- 4380 Mar, [facility] [place] [facility] [address] [id number] [place] [address]- 4046 Mar, [facility] [place] [facility] [address] [id number] [place] [address]- 1831 Mar, [facility] [place] [facility] [address] [id number] [place] [address]- 6714 Mar, [facility] [place] [facility] [address] [id number] [place] [address]- 7747 Mar, [facility] [place] [facility] [address] [id number] [place] [address]- 2172 Mar, [facility] [place] [facility] [address] [id number] [place] [address]- 3665 Mar, [facility] [place] [facility] [address] [id number] [place] [address]- 2929 Feb, [facility] [place] [facility] [address] [id number] [place] [address]- 4975 Feb, [facility] [place] [facility] [address] [id number] [place] [address]- 3955 Feb, [facility] [place] [facility] [address] [id number] [place] [address]- 1490 Feb, [facility] [place] [facility] [address] [id number] [place] [address]- 9756 Feb, [facility] [place] [facility] [address] [id number] [place] [address]- 1679 Feb, [facility] [place] [facility] [address] [id number] [place] [address]- 3551 Feb, [facility] [place] [facility] [address] [id number] [place] [address] Feb, [facility] [place] [facility] [address] [id number] [place] [address]- 5342 Feb, [facility] [place] [facility] [address] [id number] [place] [address]- 5372 Feb, [facility] [place] [facility] [address] [id number] [place] [address]- 0473 Feb, [facility] [place] [facility] [address] [id number] [place] [address]- 6582 Jan, [facility] [place] [facility] [address] [id number] [place] [address]- 3873 Jan, [facility] [place] [facility] [address] [id number] [place] [address]- 7251 Jan, [facility] [place] [facility] [address] [id number] [place] [address]- 5433 Jan, [facility] [place] [facility] [address] [id number] [place] [address] Jan, [facility] [place] [facility] [address] [id number] [place] [address]- 0802 Jan, [facility] [place] [facility] [address] [id number] [place] [address]- 5186 Jan, [facility] [place] [facility] [address] [id number] [place] [address]- 1724 24 Dec, 2011 [facility] [place] [facility] [address] [id number] [place] [address]- 7049 17 Dec, 2011 [facility] [place] [facility] [address] [id number] [place] [address]- 6065 13 Dec, 2011 [facility] [place] [facility] [address] [id number] [place] [address]- 0247 12 Dec, 2011 [facility] [place] [facility] [address] [id number] [place] [address]- 4227 23 Nov, 2011 [facility] [place] [facility] [address] [id number] [place] [address]- 9878 20 Nov, 2011 [facility] [place] [facility] [address] [id number] [place] [address]- 0485 17 Nov, 2011 [facility] [place] [facility] [address] [id number] [place] [address]- 4209 15 Nov, 2011 [facility] [place] [facility] [address] [id number] [place] [address]- 9565 14 Nov, 2011 [facility] [place] [facility] [address] [id number] [place] [address]- 9576 Nov, [facility] [place] [facility] [address] [id number] [place] [address]- 0200 Nov, [facility] [place] [facility] [address] [id number] [place] [address]- 4428 Nov, [facility] [place] [facility] [address] [id number] [place] [address]- 8920 Nov, [facility] [place] [facility] [address] [id number] [place] [address]- 6013 Nov, [facility] [place] [facility] [address] [id number] [place] [address]- 6570 Nov, [facility] [place] [facility] [address] [id number] [place] [address]- 0497 Nov, [facility] [place] [facility] [address] [id number] [place] [address]- 6011 Nov, [facility] [place] [facility] [address] [id number] [place] [address]- 8833 Oct, [facility] [place] [facility] [address] [id number] [place] [address]- 0276 Oct, [facility] [place] [facility] [address] [id number] [place] [address]- 9024 Oct, [facility] [place] [facility] [address] [id number] [place] [address]- 0001 Oct, [facility] [place] [facility] [address] [id number] [place] [address]- 1730 Oct, [facility] [place] [facility] [address] [id number] [place] [address]- 5421 Oct, [facility] [place] [facility] [address] [id number] [place] [address]- 7442 Oct, [facility] [place] [facility] [address] [id number] [place] [address]- 1639 Oct, [facility] [place] [facility] [address] [id number] [place] [address]- 3774 Oct, [facility] [place] [facility] [address] [id number] [place] [address]- 4393 Sep, [facility] [place] [facility] [address] [id number] [place] [address]- 1978 Sep, [facility] [place] [facility] [address] [id number] [place] [address]- 3180 Sep, [facility] [place] [facility] [address] [id number] [place] [address]- 9323 Sep, [facility] [place] [facility] [address] [id number] [place] [address]- 5265 Sep, [facility] [place] [facility] [address] [id number] [place] [address]- 7921 Sep, [facility] [place] [facility] [address] [id number] [place] [address]- 3915 Sep, [facility] [place] [facility] [address] [id number] [place] [address]- 4216 Sep, [facility] [place] [facility] [address] [id number] [place] [address]- 8214 August, [facility] [place] [facility] [address] [id number] [place] [address]- 5683 August, [facility] [place] [facility] [address] [id number] [place] [address]- 6344 August, [facility] [place] [facility] [address] [id number] [place] [address]- 9465 August, [facility] [place] [facility] [address] [id number] [place] [address]- 9422 August, [facility] [place] [facility] [address] [id number] [place] [address]- 5839 August, [facility] [place] [facility] [address] [id number] [place] [address]- 0403 August, [facility] [place] [facility] [address] [id number] [place] [address]- 6046 August, [facility] [place] [facility] [address] [id number] [place] [address]- 5233 August, [facility] [place] [facility] [address] [id number] [place] [address]- 1965 August, [facility] [place] [facility] [address] [id number] [place] [address] August, [facility] [place] [facility] [address] [id number] [place] [address]- 9027 August, [facility] [place] [facility] [address] [id number] [place] [id number] Oct, IMMUNIZATIONS No Known Immunizations SOCIAL HISTORY Never Assessed REASON FOR VISIT care home rx PLAN OF CARE VITAL SIGNS MEDICATIONS Medication Instructions Dosage Frequency Start Date End Date Duration Status Zofran ODT 4 MG Orally every 8 hrs 1 tablet on the tongue and allow to dissolve 8h Mar, 30 day(s) Active Protonix 20 MG Orally Once a day 1 tablet 24h Mar, 30 day(s) Active RESULTS No Results PROCEDURES [...] Surgical History bladder surgery Hospitalization History [facility] for right groin pain 05/2011 Hospitalization History Via [facility] for wound on buttocks 08/2012 Hospitalization History Via [facility], hypoxia secondary to pneumonia 12/02-12/09 Hospitalization History Pneumonia, elevated CO2 on Bipap was in ICU 08/2013 Hospitalization History Hypoxia, Exacerbation COPD, Chest pain 09/05/15 Hospitalization History [place] ideations-[place] 12/28 Hospitalization History hypoxia--[facility] 02/13/2016 Hospitalization History shortness of breath at june 2016 Hospitalization History Shortness of breath at august 2016 Hospitalization History SOB, chest pain at 12/2016
--- OUTSIDE RECORDS SUMMARY | 2017-11-24 17:53 | XMS REPORT ---
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 [id number] [place] [address] 81882- 2304 14 Dec, 2014 [facility] [address] 90823- 4732 Dec, Affective disorder 296.90 [facility] [address] [address] 2546 04 Dec, 2014 [facility] [address] [address] 2546 Dec, 2014 [facility] [address] [address] 2546 Dec, 2014 [facility] [id number] [place] [address] 04756 2546 Dec, 2014 [facility] [id number] [place] [address] 05900- 0927 Nov, Affective disorder 296.90 [facility] [id number] [place] [address] 29082 2547 Nov, [facility] [id number] [place] [address] 91485 2549 Nov, Affective disorder 296.90 [facility] [address] [address] 2546 Nov, Diarrhea 787.91 [facility] [id number] [place] [address] 68511 2544 Nov, [facility] [address] [address] 2546 Nov, Diarrhea 787.91 [facility] [id number] [place] [address] 39126 2546 Nov, Diarrhea 787.91 and Hyperlipidemia 272.4 [facility] [id number] [place] [address] 38332 2546 Nov, Diarrhea 787.91 [facility] [address] [address] 2546 Nov, Affective disorder 296.90 [facility] [address] [address]- 7550 Nov, Affective disorder 296.90 [facility] [address] [address]- 2564 Nov, Affective disorder 296.90 [facility] [address] [address]- 5988 Nov, [facility] [address] [address]- 7118 Nov, [facility] [address] [address]- 3906 Nov, [facility] [id number] [place] [address] 10542- 6407 Nov, Episodic mood disorder 296.90 [facility] [address] [address]- 0232 Nov, [facility] [id number] [place] [address] 18090- 5444 Nov, [facility] [address] [address]- 2542 Nov, [facility] [id number] [place] [address] 90115- 5796 Nov, [facility] [address] [address]- 2347 Nov, [facility] [id number] [place] [address] 61365- 1146 Nov, Lymphedema 457.1 ; Hyperlipidemia 272.4 ; Essential hypertension, benign 401.1 and Numbness of toes 782.0 [facility] [address] [address]- 4532 Nov, Episodic mood disorder 296.90 [facility] [address] [address]- 7906 Oct, [facility] [address] [address]- 5423 Oct, 2014 [facility] [address] [facility] [id number] [place] [address]- 0129 15 Oct, 2014 [facility] [place] [facility] [address] [facility] [id number] [place] [address]- 7008 Oct, 2014 [facility] [address] [facility] [id number] [place] [address]- 1941 14 Oct, 2014 [facility] [address] [facility] [id number] [place] [address]- 6692 Oct, 2014 [facility] [address] [facility] [id number] [place] [address]- 6446 Oct, 2014 [facility] [address] [facility] [id number] [place] [address]- 2303 Oct, 2014 [facility] [address] [facility] [id number] [place] [address]- 9944 Oct, Episodic mood disorder 296.90 [facility] [address] [facility] [id number] [place] [address]- 2907 30 Sep, 2014 [facility] [address] [facility] [id number] [place] [address]- 8635 Sep, [facility] [address] [facility] [id number] [place] [address]- 3406 Sep, [facility] [address] [facility] [id number] [place] [address]- 0131 Sep, [facility] [place] [facility] [address] [facility] [id number] [place] [address]- 7305 Sep, [facility] [place] [facility] [address] [facility] [id number] [place] [address]- 6345 Sep, Episodic mood disorder 296.90 [facility] [place] [facility] [address] [facility] [id number] [place] [address]- 0891 Sep, Unspecified episodic mood disorder 296.90 [facility] [address] [facility] [id number] [place] [address]- 0028 Sep, [facility] [address] [address]- 0017 Sep, [facility] [id number] [place] [address] 76851- 4708 Sep, Episodic mood disorder 296.90 [facility] [id number] [place] [address] 91627- 4066 Sep, [facility] [id number] [place] [address] 87585- 0958 Sep, [facility] [id number] [place] [address] 93434- 4509 Sep, [facility] [id number] [place] [address] 20698- 6163 Sep, Hematemesis 578.0 and Vomiting 787.03 [facility] [id number] [place] [address] 57416- 7963 Sep, Episodic mood disorder 296.90 [facility] [address] [place] [address] 65945- 4318 Sep, [facility] [id number] [place] [address] 64030- 0113 Sep, [facility] [address] [address]- 2130 Sep, Diabetes mellitus without mention of complication, type II or unspecified type, not stated as uncontrolled 250.00 and Other chronic pain 338.29 [facility] [address] [address]- 4474 05 Sep, 2014 Episodic mood disorder 296.90 [facility] [id number] [place] [address] 52701- 3141 Sep, [facility] [address] [address]- 0650 Sep, Episodic mood disorder 296.90 [facility] [id number] [address]- 7254 Sep, [facility] [address] [id number] [address]- 4433 August, [facility] [id number] [address]- 7822 August, [facility] [address] [address]- 9250 August, Episodic mood disorder 296.90 [facility] [id number] [address]- 2606 August, [facility] [address] [address]- 1482 August, Unspecified episodic mood disorder 296.90 [facility] [address] [address]- 7942 August, Vomiting 787.03 [facility] [address] [address]- 3021 August, [facility] [address] [address]- 0457 August, [facility] [address] [address]- 4857 August, [facility] [id number] [address]- 2782 August, [facility] [id number] [address]- 0068 August, [facility] [id number] [address]- 2478 Jul, [facility] [id number] [address]- 1593 Jul, [facility] [id number] [address]- 9833 Jul, [facility] [address] [address]- 8668 30 Jun, 2014 [facility] [place] [facility] [address] [id number] [place] [address]- 5193 30 Jun, 2014 [facility] [place] [facility] [address] [id number] [place] [address]- 1766 Jun, [facility] [place] [facility] [address] [id number] [place] [address]- 9116 Jun, 2014 [facility] [place] [facility] [address] [id number] [place] [address]- 7348 Jun, [facility] [place] [facility] [address] [id number] [place] [address]- 2870 Jun, [facility] [place] [facility] [address] [id number] [place] [address]- 9278 Jun, [facility] [place] [facility] [address] [id number] [place] [address]- 5203 Jun, [facility] [place] [facility] [address] [id number] [place] [address]- 9648 Jun, [facility] [place] [facility] [address] [id number] [place] [address]- 9534 Jun, [facility] [place] [facility] [address] [id number] [place] [address]- 8811 Jun, [facility] [place] [facility] [address] [id number] [place] [address]- 2153 Jun, [facility] [place] [facility] [address] [id number] [place] [address]- 6808 Jun, [facility] [place] [facility] [address] [id number] [place] [address]- 3922 Jun, [facility] [place] [facility] [address] [id number] [place] [address]- 1658 Jun, [facility] [place] [facility] [address] [id number] [place] [address]- 6348 Jun, [facility] [place] [facility] [address] [id number] [place] [address]- 6107 23 Jun, 2014 [facility] [place] [facility] [address] [id number] [place] [address]- 1026 23 Jun, 2014 [facility] [place] [facility] [address] [id number] [place] [address]- 6319 23 Jun, 2014 [facility] [place] [facility] [address] [id number] [place] [address]- 3704 21 Jun, 2014 [facility] [place] [facility] [address] [id number] [place] [address]- 5247 21 Jun, 2014 [facility] [place] [facility] [address] [id number] [place] [address]- 1566 20 Jun, 2014 [facility] [place] [facility] [address] [id number] [place] [address]- 4751 20 Jun, 2014 [facility] [place] [facility] [address] [id number] [place] [address]- 9562 20 Jun, 2014 [facility] [place] [facility] [address] [id number] [place] [address]- 1038 20 Jun, 2014 [facility] [place] [facility] [address] [id number] [place] [address]- 2001 19 Jun, 2014 [facility] [place] [facility] [address] [id number] [place] [address]- 9836 19 Jun, 2014 [facility] [place] [facility] [address] [id number] [place] [address]- 4456 18 Jun, 2014 [facility] [place] [facility] [address] [id number] [place] [address]- 1642 18 Jun, 2014 [facility] [place] [facility] [address] [id number] [place] [address]- 6501 17 Jun, 2014 [facility] [place] [facility] [address] [id number] [place] [address]- 2943 17 Jun, 2014 [facility] [place] [facility] [address] [id number] [place] [address]- 3316 16 Jun, 2014 [facility] [place] [facility] [address] [id number] [place] [address]- 0661 16 Jun, 2014 [facility] [place] [facility] [address] [id number] [place] [address]- 7044 16 Jun, 2014 [facility] [place] [facility] [address] [id number] [place] [address] 16 Jun, 2014 [facility] [place] [facility] [address] [id number] [place] [address] 16 Jun, 2014 [facility] [place] [facility] [address] [id number] [place] [address] Jun, [facility] [place] [facility] [address] [id number] [place] [address] Jun, [facility] [place] [facility] [address] [id number] [place] [address] Jun, [facility] [place] [facility] [address] [id number] [place] [address] Jun, [facility] [place] [facility] [address] [id number] [place] [address] Jun, [facility] [place] [facility] [address] [id number] [place] [address] Jun, [facility] [place] [facility] [address] [id number] [place] [address] Jun, [facility] [place] [facility] [address] [id number] [place] [address] Jun, 2014 [facility] [place] [facility] [address] [id number] [place] [address]- 74[address] Jun, [facility] [place] [facility] [address] [id number] [place] [address] Jun, [facility] [place] [facility] [address] [id number] [place] [address] 8580 Jun, [facility] [place] [facility] [address] [id number] [place] [address]- [address] 05 Jun, 2014 [facility] [place] [facility] [address] [id number] [place] [address]- [address] Jun, [facility] [place] [facility] [address] [id number] [place] [address]- [address]270 Jun, [facility] [place] [facility] [address] [id number] [place] [address]- [address] Jun, [facility] [place] [facility] [address] [id number] [place] [address]- [address] Jun, [facility] [place] [facility] [address] [id number] [place] [address] Jun, [facility] [place] [facility] [address] [facility] [id number] [place] [address]- [address] Jun, [facility] [place] [facility] [address] [id number] [place] [address] Jun, [facility] [place] [facility] [address] [facility] [id number] [place] [address]- [address] Jun, [facility] [place] [facility] [address] [id number] [place] [address] Jun, [facility] [place] [facility] [address] [facility] [id number] [place] [address]- [address] May, [facility] [place] [facility] [address] [id number] [place] [address]- [address] May, [facility] [place] [facility] [address] [id number] [place] [address]- [address] May, [facility] [place] [facility] [address] [id number] [place] [address] May, [facility] [place] [facility] [address] [facility] [id number] [place] [address]- [address] May, [facility] [place] [facility] [address] [id number] [place] [address]- [address] b, 2014 [facility] [place] [facility] [address] [facility] [id number] [place] [address]- 97[address] 20 May, 2014 [facility] [place] [facility] [address] [facility] [id number] [place] [address]- [address]186 20 May, 2014 [facility] [place] [facility] [address] [facility] [id number] [place] [address] 20 May, 2014 [facility] [place] [facility] [address] [facility] [id number] [place] [address]- [address] 20 May, 2014 [facility] [place] [facility] [address] [facility] [id number] [place] [address] 18 May, 2014 [facility] [place] [facility] [address] [facility] [id number] [place] [address]- [address] 18 May, 2014 [facility] [place] [facility] [address] [id number] [place] [address] 13 May, 2014 [facility] [place] [facility] [address] [facility] [id number] [place] [address]- [address] 13 May, 2014 [facility] [place] [facility] [address] [facility] [id number] [place] [address]- [address] 11 May, 2014 [facility] [place] [facility] [address] [facility] [id number] [place] [address]- [address] May, 2014 [facility] [place] [facility] [address] [facility] [id number] [place] [address]- [address] May, 2014 [facility] [place] [facility] [address] [facility] [id number] [place] [address] 11 May, 2014 [facility] [place] [facility] [address] [facility] [id number] [place] [address] 3145 09 May, 2014 [facility] [place] [facility] [address] [facility] [id number] [address] 84[address] 09 May, 2014 [facility] [place] [facility] [address] [id number] [place] [address] 95[address] May, 2014 [facility] [place] [facility] [address] [id number] [place] [address] 4409 May, [facility] [place] [facility] [address] [id number] [place] [address] 0176 May, [facility] [place] [facility] [address] [id number] [place] [address]- 0852 May, 2014 [facility] [place] [facility] [address] [id number] [place] [address]- 4475 May, 2014 [facility] [place] [facility] [address] [id number] [place] [address] 9205 May, [facility] [place] [facility] [address] [id number] [place] [address] 4192 May, [facility] [place] [facility] [address] [id number] [place] [address] 0876 Apr, [facility] [place] [facility] [address] [id number] [place] [address] 5065 Apr, [facility] [place] [facility] [address] [id number] [place] [address]- 3474 Apr, [facility] [place] [facility] [address] [id number] [place] [address]- 9198 Apr, [facility] [place] [facility] [address] [id number] [address] 3858 Apr, [facility] [place] [facility] [address] [id number] [address] 0768 Apr, [facility] [place] [facility] [address] [id number] [place] [address]- 3531 Apr, [facility] [place] [facility] [address] [id number] [place] [address]- 0365 Apr, [facility] [place] [facility] [address] [id number] [place] [address]- 0225 Apr, [facility] [place] [facility] [address] [id number] [place] [address]- 2320 15 Apr, 2014 [facility] [address] [id number] [place] [address]- 4419 Apr, [facility] [address] [id number] [place] [address]- 1857 Apr, [facility] [address] [id number] [place] [address]- 1997 Apr, [facility] [address] [id number] [place] [address] 1178 Apr, [facility] [address] [id number] [place] [address]- 3254 Apr, [facility] [address] [id number] [place] [address]- 6117 Apr, [facility] [address] [id number] [place] [address]- 5849 Apr, [facility] [address] [id number] [place] [address]- 6122 Apr, [facility] [address] [id number] [place] [address]- 9547 Apr, [facility] [address] [id number] [place] [address]- 4630 Apr, [facility] [address] [id number] [place] [address]- 6307 Mar, [facility] [address] [id number] [place] [address]- 0552 Mar, [facility] [place] [facility] [address] [id number] [place] [address]- 8600 Mar, [facility] [place] [facility] [address] [id number] [place] [address]- 2464 Mar, [facility] [address] [id number] [place] [address]- 0909 Mar, [facility] [place] [facility] [address] [id number] [place] [address]- 6653 Mar, [facility] [place] [facility] [address] [id number] [place] [address]- 0148 Mar, [facility] [place] [facility] [address] [id number] [place] [address] Mar, [facility] [place] [facility] [address] [id number] [place] [address]- 6009 Mar, [facility] [place] [facility] [address] [id number] [place] [address]- 3442 Mar, [facility] [place] [facility] [address] [id number] [place] [address]- 7927 Mar, [facility] [place] [facility] [address] [id number] [place] [address]- 3039 Mar, [facility] [place] [facility] [address] [id number] [place] [address]- 6084 Mar, [facility] [place] [facility] [address] [id number] [place] [address]- 0098 Mar, [facility] [place] [facility] [address] [id number] [place] [address]- 4037 Mar, [facility] [place] [facility] [address] [id number] [place] [address]- 8693 Mar, [facility] [place] [facility] [address] [id number] [place] [address]- 3190 Feb, [facility] [place] [facility] [address] [id number] [place] [address]- 7361 Feb, [facility] [place] [facility] [address] [id number] [place] [address] Feb, [facility] [place] [facility] [address] [id number] [place] [address]- 9267 Feb, [facility] [place] [facility] [address] [id number] [place] [address] 3157 20 Feb, 2014 [facility] [place] [facility] [address] [id number] [place] [address]- 4372 19 Feb, 2014 [facility] [place] [facility] [address] [id number] [place] [address]- 3159 19 Feb, 2014 [facility] [place] [facility] [address] [id number] [place] [address]- 4006 18 Feb, 2014 [facility] [place] [facility] [address] [id number] [place] [address]- 2309 18 Feb, 2014 [facility] [place] [facility] [address] [id number] [place] [address]- 1431 17 Feb, 2014 [facility] [place] [facility] [address] [id number] [place] [address]- 1174 17 Feb, 2014 [facility] [place] [facility] [address] [id number] [place] [address]- 5309 17 Feb, 2014 [facility] [place] [facility] [address] [id number] [place] [address]- 9886 17 Feb, 2014 [facility] [place] [facility] [address] [id number] [place] [address]- 5687 14 Feb, 2014 [facility] [place] [facility] [address] [id number] [place] [address]- 7978 14 Feb, 2014 [facility] [place] [facility] [address] [id number] [place] [address]- 1817 14 Feb, 2014 [facility] [place] [facility] [address] [id number] [place] [address]- 2335 14 Feb, 2014 [facility] [place] [facility] [address] [id number] [place] [address]- 0041 10 Feb, 2014 [facility] [place] [facility] [address] [id number] [place] [address]- 6658 10 Feb, 2014 [facility] [place] [facility] [address] [id number] [place] [address]- 5836 04 Feb, 2014 [facility] [place] [facility] [address] [id number] [place] [address]- 3468 Feb, [facility] [place] [facility] [address] [id number] [place] [address]- 6674 Jan, [facility] [place] [facility] [address] [id number] [place] [address]- 2421 Jan, [facility] [place] [facility] [address] [id number] [place] [address]- 8287 Jan, [facility] [place] [facility] [address] [id number] [place] [address]- 9253 Jan, [facility] [place] [facility] [address] [id number] [place] [address]- 6542 Jan, [facility] [place] [facility] [address] [id number] [place] [address]- 3936 Jan, [facility] [place] [facility] [address] [id number] [place] [address]- 2281 Jan, [facility] [place] [facility] [address] [id number] [place] [address]- 4586 Jan, [facility] [place] [facility] [address] [id number] [place] [address]- 9661 Jan, [facility] [place] [facility] [address] [id number] [place] [address]- 1610 Jan, [facility] [place] [facility] [address] [id number] [place] [address]- 1122 Jan, [facility] [place] [facility] [address] [id number] [place] [address]- 4112 Jan, [facility] [place] [facility] [address] [id number] [place] [address]- 8871 Jan, [facility] [place] [facility] [address] [id number] [place] [address]- 4074 Jan, [facility] [place] [facility] [address] [id number] [place] [address]- 3464 Jan, [facility] [place] [facility] [address] [id number] [place] [address]- 1044 15 Jan, 2014 [facility] [place] [facility] [address] [id number] [place] [address]- 5992 14 Jan, 2014 [facility] [place] [facility] [address] [id number] [place] [address]- 6436 14 Jan, 2014 [facility] [place] [facility] [address] [id number] [place] [address]- 8403 13 Jan, 2014 [facility] [place] [facility] [address] [id number] [place] [address]- 1423 Jan, [facility] [place] [facility] [address] [id number] [place] [address]- 5861 Jan, [facility] [place] [facility] [address] [id number] [place] [address]- 2930 Jan, [facility] [place] [facility] [address] [id number] [place] [address]- 1560 10 Jan, 2014 [facility] [place] [facility] [address] [id number] [place] [address]- 5867 02 Jan, 2014 [facility] [place] [facility] [address] [id number] [place] [address]- 0207 02 Jan, 2014 [facility] [place] [facility] [address] [id number] [place] [address]- 3991 25 Dec, 2013 [facility] [place] [facility] [address] [id number] [place] [address]- 5071 25 Dec, 2013 [facility] [place] [facility] [address] [id number] [place] [address]- 9741 23 Dec, 2013 [facility] [place] [facility] [address] [id number] [place] [address]- 6963 23 Dec, 2013 [facility] [place] [facility] [address] [id number] [place] [address]- 7846 19 Dec, 2013 [facility] [place] [facility] [address] [id number] [place] [address]- 3085 19 Sep, 2013 [facility] [place] [facility] [address] [id number] [place] [address]- 0156 17 Sep, 2013 [facility] [place] [facility] [address] [id number] [place] [address]- 8446 17 Sep, 2013 [facility] [place] [facility] [address] [id number] [place] [address]- 0196 09 Sep, 2013 [facility] [place] [facility] [address] [id number] [place] [address]- 6614 09 Sep, 2013 [facility] [place] [facility] [address] [id number] [place] [address]- 4644 08 Sep, 2013 [facility] [place] [facility] [address] [id number] [place] [address]- 0209 08 Sep, 2013 [facility] [place] [facility] [address] [id number] [place] [address]- 2238 04 Sep, 2013 [facility] [place] [facility] [address] [id number] [place] [address]- 1735 04 Sep, 2013 [facility] [place] [facility] [address] [id number] [place] [address]- 0947 02 Sep, 2013 [facility] [place] [facility] [address] [id number] [place] [address]- 3934 02 Sep, 2013 [facility] [place] [facility] [address] [id number] [place] [address]- 2359 Dec, 2013 [facility] [place] [facility] [address] [id number] [place] [address]- 2543 Dec, 2013 [facility] [place] [facility] [address] [id number] [place] [address]- 0890 Nov, [facility] [place] [facility] [address] [id number] [place] [address]- 4829 Nov, [facility] [place] [facility] [address] [id number] [place] [address]- 8610 Nov, [facility] [place] [facility] [address] [id number] [place] [address]- 3905 Nov, [facility] [place] [facility] [address] [id number] [place] [address]- 3403 Nov, [facility] [place] [facility] [address] [id number] [facility] [address]- 2564 Nov, [facility] [place] [facility] [address] [id number] [place] [address]- 7124 Nov, [facility] [place] [facility] [address] [id number] [place] [address]- 3007 Nov, [facility] [place] [facility] [address] [id number] [place] [address]- 2275 Nov, [facility] [place] [facility] [address] [id number] [place] [address]- 4008 Nov, [facility] [place] [facility] [address] [id number] [place] [address]- 9090 Nov, [facility] [place] [facility] [address] [id number] [place] [address]- 6503 Nov, [facility] [place] [facility] [address] [id number] [place] [address]- 4517 Oct, [facility] [place] [facility] [address] [id number] [place] [address]- 2082 Oct, [facility] [place] [facility] [address] [id number] [place] [address]- 9376 Oct, [facility] [place] [facility] [address] [id number] [place] [address]- 8973 Oct, [facility] [place] [facility] [address] [id number] [place] [address]- 1821 Oct, [facility] [place] [facility] [address] [id number] [place] [address]- 0219 Oct, [facility] [place] [facility] [address] [id number] [place] [address]- 6626 Oct, [facility] [place] [facility] [address] [id number] [place] [address]- 1762 Oct, [facility] [place] [facility] [address] [id number] [place] [address]- 8484 Oct, [facility] [place] [facility] [address] [id number] [place] [address]- 0140 Oct, [facility] [place] [facility] [address] [id number] [place] [address]- 8936 Oct, [facility] [place] [facility] [address] [id number] [place] [address]- 1874 Oct, [facility] [place] [facility] [address] [id number] [place] [address]- 5208 Oct, [facility] [place] [facility] [address] [id number] [place] [address]- 9976 Oct, [facility] [place] [facility] [address] [id number] [place] [address]- 8002 Oct, [facility] [place] [facility] [address] [id number] [place] [address]- 0464 Oct, [facility] [place] [facility] [address] [id number] [place] [address]- 9561 Oct, [facility] [place] [facility] [address] [id number] [place] [address]- 8965 Sep, [facility] [place] [facility] [address] [id number] [place] [address]- 6757 Sep, [facility] [place] [facility] [address] [id number] [place] [address]- 0909 Sep, [facility] [place] [facility] [address] [id number] [place] [address]- 3822 Sep, [facility] [place] [facility] [address] [id number] [place] [address]- 3564 18 Sep, 2013 [facility] [place] [facility] [address] [id number] [place] [address]- 4043 18 Sep, 2013 [facility] [place] [facility] [address] [id number] [place] [address]- 8514 17 Sep, 2013 [facility] [place] [facility] [address] [id number] [place] [address]- 2977 17 Sep, 2013 [facility] [place] [facility] [address] [id number] [place] [address]- 1700 11 Sep, 2013 [facility] [place] [facility] [address] [id number] [place] [address]- 4485 Sep, [facility] [place] [facility] [address] [id number] [place] [address]- 8300 Sep, [facility] [place] [facility] [address] [id number] [place] [address]- 3765 Sep, [facility] [place] [facility] [address] [id number] [place] [address]- 9086 Sep, [facility] [place] [facility] [address] [id number] [place] [address]- 5389 Sep, [facility] [place] [facility] [address] [id number] [place] [address]- 4390 Sep, [facility] [place] [facility] [address] [id number] [place] [address]- 1363 09 Sep, 2013 [facility] [place] [facility] [address] [id number] [place] [address]- 8646 07 Sep, 2013 [facility] [place] [facility] [address] [id number] [place] [address]- 5457 07 Sep, 2013 [facility] [place] [facility] [address] [id number] [place] [address]- 1778 05 Sep, 2013 [facility] [place] [facility] [address] [id number] [place] [address]- 1052 05 Sep, 2013 [facility] [place] [facility] [address] [id number] [place] [address]- 1444 Sep, [facility] [place] [facility] [address] [id number] [place] [address]- 2719 Sep, [facility] [place] [facility] [address] [id number] [place] [address]- 8927 August, [facility] [place] [facility] [address] [id number] [place] [address]- 2216 August, [facility] [place] [facility] [address] [id number] [place] [address]- 9083 August, [facility] [place] [facility] [address] [id number] [place] [address]- 8092 August, [facility] [place] [facility] [address] [id number] [place] [address]- 8759 August, [facility] [place] [facility] [address] [id number] [place] [address]- 5156 August, [facility] [place] [facility] [address] [id number] [place] [address]- 6365 August, [facility] [place] [facility] [address] [id number] [place] [address]- 6160 August, [facility] [place] [facility] [address] [id number] [place] [address]- 6876 August, [facility] [place] [facility] [address] [id number] [place] [address]- 3408 August, [facility] [place] [facility] [address] [id number] [place] [address]- 6186 August, [facility] [place] [facility] [address] [id number] [place] [address]- 2835 Jul, [facility] [place] [facility] [address] [id number] [place] [address]- 8008 Jul, [facility] [place] [facility] [address] [id number] [place]20 Jul, [facility] [place] [facility] [address] [id number] [place] [address]- 9299 Jul, [facility] [place] [facility] [address] [id number] [place] [address]- 9208 Jul, [facility] [place] [facility] [address] [id number] [place] [address]- 2350 Jul, [facility] [place] [facility] [address] [id number] [place] [address]- 6848 Jul, [facility] [place] [facility] [address] [id number] [place] [address]- 3139 Jul, [facility] [place] [facility] [address] [id number] [place] [address]- 6728 Jul, [facility] [place] [facility] [address] [id number] [place] [address]- 2142 18 Jul, 2013 [facility] [place] [facility] [address] [id number] [place] [address]- 9051 16 Jul, 2013 [facility] [place] [facility] [address] [id number] [place] [address]- 8521 14 Jul, 2013 [facility] [place] [facility] [address] [id number] [place] [address]- 5081 14 Jul, 2013 [facility] [place] [facility] [address] [id number] [place] [address]- 5906 Jul, [facility] [place] [facility] [address] [id number] [place] [address]- 8765 Jul, [facility] [place] [facility] [address] [id number] [place] [address]- 8161 10 Jul, 2013 [facility] [place] [facility] [address] [id number] [place] [address]- 9578 10 Jul, 2013 [facility] [place] [facility] [address] [id number] [place] [address]- 1014 05 Jul, 2013 [facility] [place] [facility] [address] [id number] [place] [address]- 5791 Jul, [facility] [place] [facility] [address] [id number] [place] [address]- 2290 Jul, [facility] [place] [facility] [address] [id number] [place] [address]- 7716 Jul, [facility] [place] [facility] [address] [id number] [place] [address]- 8546 Jul, [facility] [place] [facility] [address] [id number] [place] [address]- 9000 Jul, [facility] [place] [facility] [address] [id number] [place] [address]- 9895 Jun, [facility] [place] [facility] [address] [id number] [place] [address]- 9475 Jun, [facility] [place] [facility] [address] [id number] [place] [address] Jun, [facility] [place] [facility] [address] [id number] [place] [address] Jun, [facility] [place] [facility] [address] [id number] [place] [address] Jun, [facility] [place] [facility] [address] [id number] [place] [address] Jun, [facility] [place] [facility] [address] [id number] [place] [address] Jun, [facility] [place] [facility] [address] [id number] [place] [address] Jun, [facility] [place] [facility] [address] [id number] [place] [address] Jun, [facility] [place] [facility] [address] [id number] [place] [address] Jun, [facility] [place] [facility] [address] [id number] [place] [address] Jun, [facility] [place] [facility] [address] [id number] [place] [address] Jun, [facility] [place] [facility] [address] [id number] [place] [address] May, [facility] [place] [facility] [address] [id number] [place] [address] May, [facility] [place] [facility] [address] [id number] [place] [address] Apr, [facility] [place] [facility] [address] [id number] [place] [address] Apr, [facility] [place] [facility] [address] [id number] [place] [address] Apr, [facility] [place] [facility] [address] [id number] [place] [address]28 Apr, [facility] [place] [facility] [address] [id number] [place] [address] Apr, [facility] [place] [facility] [address] [id number] [place] [address] Apr, [facility] [place] [facility] [address] [id number] [place] [address] Apr, [facility] [place] [facility] [address] [id number] [place] [address] Apr, [facility] [place] [facility] [address] [id number] [place] [address] 1718 Apr, [facility] [place] [facility] [address] [id number] [address] Apr, [facility] [place] [facility] [address] [id number] [place] [address] Apr, [facility] [place] [facility] [address] [id number] [place] [address] Mar, [facility] [place] [facility] [address] [id number] [place] [address] Mar, [facility] [place] [facility] [address] [id number] [place] [address] Mar, [facility] [address] [id number] [place] [address] Mar, [facility] [place] [facility] [address] [id number] [place] [address]99 Feb, [facility] [address] [id number] [place] [address] 9[address] Feb, [facility] [place] [facility] [address] [id number] [place] [address] 238[address] Feb, [facility] [place] [facility] [address] [id number] [place] [address] Feb, [facility] [place] [facility] [address] [id number] [place] [address] 8157 Feb, [facility] [address] [id number] [place] [address] Feb, [facility] [place] [facility] [address] [id number] [place] [address] Feb, [facility] [place] [facility] [address] [id number] [place] [address] Feb, [facility] [place] [facility] [address] [facility] [id number] [place] [address] Feb, [facility] [place] [facility] [address] [id number] [place] [address] Feb, [facility] [place] [facility] [address] [id number] [address] Feb, [facility] [place] [facility] [address] [id number] [place] [address] Jan, [facility] [place] [facility] [address] [id number] [place] [address] Jan, [facility] [place] [facility] [address] [id number] [place] [address] Jan, [facility] [place] [facility] [address] [id number] [place] [address]- [address] 11 Jan, 2013 [facility] [place] [facility] [address] [id number] [place] [address]- [address]27 10 Jan, 2013 [facility] [place] [facility] [address] [id number] [place] [address]- [address] 10 Jan, 2013 [facility] [place] [facility] [address] [id number] [place] [address]- 5827 03 Jan, 2013 [facility] [place] [facility] [address] [id number] [place] [address]- [address] 02 Jan, 2013 [facility] [place] [facility] [address] [id number] [place] [address]- 98[address] 30 Dec, 2012 [facility] [place] [facility] [address] [id number] [place] [address]- [address] 25 Sep, 2012 [facility] [place] [facility] [address] [id number] [place] [address]- 7940 18 Sep, 2012 [facility] [place] [facility] [address] [id number] [place] [address]- 2046 17 Sep, 2012 [facility] [place] [facility] [address] [id number] [place] [address]- 2314 17 Sep, 2012 [facility] [place] [facility] [address] [id number] [place] [address]- 2932 16 Sep, 2012 [facility] [place] [facility] [address] [id number] [place] [address]- 2545 13 Sep, 2012 [facility] [place] [facility] [address] [id number] [place] [address]- 1558 11 Sep, 2012 [facility] [place] [facility] [address] [id number] [place] [address]- 2542 05 Sep, 2012 [facility] [place] [facility] [address] [id number] [place] [address]- 7830 04 Sep, 2012 [facility] [place] [facility] [address] [id number] [place] [address] Nov, [facility] [place] [facility] [address] [id number] [place] [address] 1016 Nov, [facility] [place] [facility] [address] [id number] [place] [address]- 2952 Nov, [facility] [place] [facility] [address] [id number] [place] [address]- 1530 Nov, [facility] [place] [facility] [address] [id number] [place] [address]- [address]327 Nov, [facility] [place] [facility] [address] [id number] [place] [address]- 1612 Nov, [facility] [place] [facility] [address] [id number] [place] [address]- 7516 Nov, [facility] [place] [facility] [address] [id number] [place] [address]- 3110 Oct, [facility] [place] [facility] [address] [id number] [place] [address]- [address]756 Oct, [facility] [place] [facility] [address] [id number] [place] [address]- [address] Oct, [facility] [place] [facility] [address] [id number] [place] [address]- 9807 Oct, [facility] [place] [facility] [address] [id number] [place] [address]- 3818 Oct, [facility] [place] [facility] [address] [id number] [place] [address]- 40[address] Oct, [facility] [place] [facility] [address] [id number] [place] [address]- [address] Sep, [facility] [place] [facility] [address] [id number] [place] [address]- 0734 Sep, [facility] [place] [facility] [address] [id number] [place] [address]- 67[address] Sep, [facility] [place] [facility] [address] [id number] [place] [address]- [address] 14 Sep, 2012 [facility] [address] [id number] [place] [address]- 2976 13 Sep, 2012 [facility] [address] [id number] [place] [address]- [address]486 10 Sep, 2012 [facility] [address] [id number] [place] [address] 07 Sep, 2012 [facility] [address] [id number] [place] [address] 06 Sep, 2012 [facility] [address] [id number] [place] [address] 05 Sep, 2012 [facility] [address] [id number] [place] [address] August, [facility] [address] [id number] [place] [address] August, [facility] [address] [id number] [place] [address] August, [facility] [address] [id number] [place] [address] August, [facility] [address] [id number] [place] [address] August, [facility] [address] [id number] [place] [address] August, [facility] [address] [id number] [place] [address] 8426 August, [facility] [address] [id number] [place] [address] August, [facility] [address] [id number] [place] [address] Jul, [facility] [address] [id number] [place] [address] [address], [address] [facility] [id number] Jul [facility] [address] [id number] [place] [address] Jun, [facility] [address] [id number] [place] [address] 74[address] Jun, [facility] [address] [id number] [place] [address] 12[address] Jun, [facility] [address] [id number] [place] [address] 68[address] Jun, [facility] [address] [id number] [place] [address] Jun, [facility] [address] [id number] [place] [address] Jun, [facility] [address] [id number] [place] [address] May, [facility] [address] [id number] [place] [address] May, [facility] [address] [id number] [place] [address] 60[address] May, [facility] [address] [id number] [place] [address] May, [facility] [address] [id number] [place] [address] 79[address] May, [facility] [address] [id number] [place] [address] 28[address] Apr, [facility] [address] [id number] [place] [address] Apr, [facility] [address] [id number] [place] [address] 18[address] Apr, [facility] [address] [id number] [place] [address] Apr, [facility] [address] [id number] [place] [address]148 Apr, [facility] [place] [facility] [address] [id number] [place] [address] Apr, [facility] [place] [facility] [address] [id number] [place] [address] Mar, [facility] [place] [facility] [address] [id number] [place] [address] 65[address] Mar, [facility] [place] [facility] [address] [id number] [place] [address] 99[address] Mar, [facility] [place] [facility] [address] [id number] [place] [address]697 Mar, [facility] [place] [facility] [address] [id number] [place] [address] Mar, [facility] [place] [facility] [address] [id number] [place] [address] 4746 Mar, [facility] [place] [facility] [address] [id number] [place] [address] Mar, [facility] [place] [facility] [address] [id number] [place] [address]289 Mar, [facility] [place] [facility] [address] [id number] [place] [address] 3520 Mar, [facility] [place] [facility] [address] [id number] [place] [address]- 1635 Mar, [facility] [place] [facility] [address] [id number] [place] [address] 67[address] Mar, [facility] [place] [facility] [address] [id number] [place] [address] 95[address] Feb, [facility] [place] [facility] [address] [id number] [place] [address]858 Feb, [facility] [place] [facility] [address] [id number] [place] [address] 4671 Feb, [facility] [place] [facility] [address] [id number] [place] [address] 8558 Feb, [facility] [place] [facility] [address] [id number] [place] [address] Feb, [facility] [place] [facility] [address] [id number] [place] [address] 8865 Feb, [facility] [place] [facility] [address] [id number] [place] [address] 8382 Feb, [facility] [place] [facility] [address] [id number] [place] [address] Feb, [facility] [place] [facility] [address] [id number] [place] [address]- 1778 Feb, [facility] [place] [facility] [address] [id number] [place] [address] 5629 Feb, [facility] [place] [facility] [address] [id number] [place] [address]- 1690 Feb, [facility] [place] [facility] [address] [id number] [place] [address] 7269 Jan, [facility] [place] [facility] [address] [id number] [place] [address] 9316 Jan, [facility] [place] [facility] [address] [id number] [place] [address]- 5274 Jan, [facility] [place] [facility] [address] [id number] [place] [address] 45[address] Jan, [facility] [place] [facility] [address] [id number] [place] [address] Jan, [facility] [place] [facility] [address] [id number] [place] [address]- 8365 Jan, [facility] [place] [facility] [address] [id number] [place] [address]- 4228 Jan, [facility] [place] [facility] [address] [id number] [place] [address]- 6699 24 Dec, 2011 [facility] [place] [facility] [address] [id number] [place] [address]- [address]175 17 Dec, 2011 [facility] [place] [facility] [address] [id number] [place] [address] 8143 13 Dec, 2011 [facility] [place] [facility] [address] [id number] [place] [address] 3172 12 Dec, 2011 [facility] [place] [facility] [address] [id number] [place] [address]- 9549 23 Nov, 2011 [facility] [place] [facility] [address] [id number] [place] [address]- 4[address] 20 Nov, 2011 [facility] [place] [facility] [address] [id number] [place] [address]- 7340 17 Nov, 2011 [facility] [place] [facility] [address] [id number] [place] [address]- 2425 15 Nov, 2011 [facility] [place] [facility] [address] [id number] [place] [address]- 2955 14 Nov, 2011 [facility] [place] [facility] [address] [id number] [place] [address]- 2584 Nov, [facility] [place] [facility] [address] [id number] [place] [address]- 3308 Nov, [facility] [place] [facility] [address] [id number] [place] [address]- 6708 Nov, [facility] [place] [facility] [address] [id number] [place] [address]- 4210 Nov, [facility] [place] [facility] [address] [id number] [place] [address]- 2971 Nov, [facility] [place] [facility] [address] [id number] [place] [address]- 4643 Nov, [facility] [place] [facility] [address] [id number] [place] [address]- 0080 Nov, [facility] [place] [facility] [address] [id number] [place] [address]- 8497 Nov, [facility] [place] [facility] [address] [id number] [place] [address]- 0045 Oct, [facility] [place] [facility] [address] [id number] [place] [address]- 8866 Oct, [facility] [place] [facility] [address] [id number] [place] [address]- 3007 Oct, [facility] [place] [facility] [address] [id number] [place] [address]- 1189 Oct, [facility] [place] [facility] [address] [id number] [place] [address]- 8432 Oct, [facility] [place] [facility] [address] [id number] [place] [address]- 3505 Oct, [facility] [place] [facility] [address] [id number] [place] [address]- 6455 Oct, [facility] [place] [facility] [address] [id number] [place] [address]- 0389 Oct, [facility] [place] [facility] [address] [id number] [place] [address]- 4683 Oct, [facility] [place] [facility] [address] [id number] [place] [address]- 4585 Sep, [facility] [place] [facility] [address] [id number] [place] [address]- 0016 Sep, [facility] [place] [facility] [address] [id number] [place] [address]- 5335 Sep, [facility] [place] [facility] [address] [id number] [place] [address]- 9753 Sep, [facility] [place] [facility] [address] [id number] [place] [address]- 3837 Sep, [facility] [place] [facility] [address] [id number] [place] [address]- 1506 Sep, [facility] [place] [facility] [address] [id number] [place] [address]- 8445 Sep, [facility] [place] [facility] [address] [id number] [place] [address]- 9386 Sep, [facility] [place] [facility] [address] [id number] [place] [address]- 4638 August, [facility] [place] [facility] [address] [id number] [place] [address]- 0989 August, [facility] [place] [facility] [address] [id number] [place] [address]- 0402 August, [facility] [place] [facility] [address] [id number] [place] [address]- 7402 August, [facility] [place] [facility] [address] [id number] [place] [address]- 4629 August, [facility] [place] [facility] [address] [id number] [place] [address]- 8533 August, [facility] [place] [facility] [address] [id number] [place] [address]- 9393 August, [facility] [place] [facility] [address] [id number] [place] [address]- 2989 August, [facility] [place] [facility] [address] [id number] [place] [address]- 3780 August, [facility] [place] [facility] [address] [id number] [place] [address]- 8286 August, [facility] [place] [facility] [address] [id number] [place] [address] August, [facility] [place] [facility] [address] [id number] [place] [address]- 5325 August, [facility] [place] [facility] [address] [id number] [place] [address] Oct, IMMUNIZATIONS No Known Immunizations SOCIAL HISTORY Never Assessed REASON FOR VISIT Requests return call PLAN OF CARE VITAL SIGNS MEDICATIONS Medication Instructions Dosage Frequency Start Date End Date Duration Status Bactrim DS 800-160 MG Orally Twice a day 1 tablet 12h Apr,Apr 10 day(s) Active Silvadene 1 % Externally Once a day 1 application to affected area 24h Apr, Active RESULTS No Results PROCEDURES No Known [...] Surgical History bladder surgery Hospitalization History Via [facility] for right groin pain 05/2011 Hospitalization History Via [facility] for wound on buttocks 08/2012 Hospitalization History Via [facility], hypoxia secondary to pneumonia 12/02-12/09 Hospitalization History Pneumonia, elevated CO2 on Bipap was in ICU 08/2013 Hospitalization History Hypoxia, Exacerbation COPD, Chest pain 09/05/15 Hospitalization History suicidal ideations-[place] 12/28 Hospitalization History hypoxia--[facility] 02/13/2016 Hospitalization History shortness of breath at june 2016 Hospitalization History Shortness of breath at august 2016 Hospitalization History SOB, chest pain at 12/2016
--- OUTSIDE RECORDS SUMMARY | 2017-11-24 17:55 | XMS REPORT ---
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 Nov, Diarrhea 787.91 [facility] [address] [address] 2546 Nov, Diarrhea 787.91 and Hyperlipidemia 272.4 [facility] [address] [address]- 8743 Nov, Diarrhea 787.91 [facility] [id number] [place] [address] 60509 2540 Nov, Affective disorder 296.90 [facility] [id number] [place] [address] 87755- 6769 Nov, Affective disorder 296.90 [facility] [id number] [place] [address] 18363- 6163 Nov, Affective disorder 296.90 [facility] [id number] [place] [address] 45004- 6174 Nov, [facility] [id number] [place] [address] 50061- 1496 Nov, [facility] [id number] [place] [address] 03937- 7436 Nov, [facility] [id number] [place] [address] 94059- 9738 Nov, Episodic mood disorder 296.90 [facility] [id number] [place] [address] 48151- 3502 Nov, [facility] [id number] [place] [address] 15987- 1576 Nov, [facility] [id number] [place] [address] 54225- 4038 Nov, [facility] [id number] [place] [address] 32601- 8362 Nov, [facility] [id number] [place] [address] 49524- 7474 Nov, [facility] [address] [address]- 4619 Nov, Lymphedema 457.1 ; Hyperlipidemia 272.4 ; Essential hypertension, benign 401.1 and Numbness of toes 782.0 [facility] [address] [place] [address]- 9312 Nov, Episodic mood disorder 296.90 [facility] [id number] [place] [address]- 1713 Oct, [facility] [id number] [place] [address]- 9069 Oct, 2014 [facility] [address] [address]- 0148 Oct, 2014 [facility] [id number] [place] [address]- 7741 Oct, [facility] [id number] [place] [address]- 6919 Oct, [facility] [address] [address]- 0481 Oct, [facility] [address] [address]- 0167 Oct, [facility] [address] [address]- 2964 Oct, [facility] [address] [address]- 9089 Oct, Episodic mood disorder 296.90 [facility] [address] [address]- 4966 Sep, [facility] [address] [address]- 4671 Sep, [facility] [address] [address]- 7849 Sep, [facility] [address] [address]- 8967 Sep, [facility] [address] [address]- 5527 Sep, [facility] [address] [address]- 8842 Sep, Episodic mood disorder 296.90 [facility] [id number] [place] [address] 89984- 0263 Sep, Unspecified episodic mood disorder 296.90 [facility] [id number] [place] [address] 96414- 7885 Sep, [facility] [id number] [place] [address] 04679- 5648 Sep, [facility] [id number] [place] [address] 09348- 4063 Sep, Episodic mood disorder 296.90 [facility] [id number] [place] [address] 61886- 0068 Sep, [facility] [id number] [place] [address] 19991- 7124 Sep, [facility] [id number] [place] [address] 71094- 6130 Sep, [facility] [id number] [place] [address] 66994- 5189 Sep, Hematemesis 578.0 and Vomiting 787.03 [facility] [id number] [place] [address] 77462- 2114 Sep, Episodic mood disorder 296.90 [facility] [id number] [place] [address] 86360- 6595 Sep, [facility] [id number] [place] [address] 93257- 1526 Sep, [facility] [id number] [place] [address] 02550- 4034 05 Sep, 2014 Diabetes mellitus without mention of complication, type II or unspecified type, not stated as uncontrolled 250.00 and Other chronic pain 338.29 [facility] [id number] [place] [address] 91569- 0119 Sep, Episodic mood disorder 296.90 [facility] [address] [address]- 7289 Sep, [facility] [address]- 4677 Sep, Episodic mood disorder 296.90 [facility] [address] 9632 Sep, [facility] [address] [address]- 7583 August, [facility] [address] [address]- 1210 August, [facility] [address] [address]- 4996 August, Episodic mood disorder 296.90 [facility] [address] [address]- 7929 August, [facility] [address] [address]- 6103 August, Unspecified episodic mood disorder 296.90 [facility] [address] [address]- 7508 August, Vomiting 787.03 [facility] [address] [address]- 2755 August, [facility] [id number] [address]- 0955 August, [facility] [id number]- 1105 August, [facility] [address]- 1293 August, [facility] [id number]- 3779 August, [facility] [place] [facility] [address] [id number] [place] [address]- 8594 28 Jul, 2014 [facility] [place] [facility] [address] [id number] [place] [address]- 5936 14 Jul, 2014 [facility] [place] [facility] [address] [id number] [place] [address]- 2586 13 Jul, 2014 [facility] [place] [facility] [address] [id number] [place] [address]- 7606 30 Jun, 2014 [facility] [place] [facility] [address] [id number] [place] [address]- 8123 30 Jun, 2014 [facility] [place] [facility] [address] [id number] [place] [address]- 5376 30 Jun, 2014 [facility] [place] [facility] [address] [id number] [place] [address]- 9211 30 Jun, 2014 [facility] [place] [facility] [address] [id number] [place] [address]- 6502 30 Jun, 2014 [facility] [place] [facility] [address] [id number] [place] [address]- 9460 30 Jun, 2014 [facility] [place] [facility] [address] [id number] [place] [address]- 7348 30 Jun, 2014 [facility] [place] [facility] [address] [id number] [place] [address]- 0759 30 Jun, 2014 [facility] [place] [facility] [address] [id number] [place] [address]- 2990 27 Jun, 2014 [facility] [place] [facility] [address] [id number] [place] [address]- 1467 Jun, [facility] [place] [facility] [address] [id number] [place] [address]- 6486 Jun, [facility] [place] [facility] [address] [id number] [place] [address]- 8186 Jun, [facility] [place] [facility] [address] [id number] [place] [address]- 7690 Jun, [facility] [place] [facility] [address] [id number] [place] [address]- 2752 Jun, [facility] [place] [facility] [address] [id number] [place] [address]- 6041 24 Jun, 2014 [facility] [place] [facility] [address] [id number] [place] [address]- 4101 Jun, [facility] [place] [facility] [address] [id number] [place] [address]- 8551 Jun, [facility] [place] [facility] [address] [id number] [place] [address]- 5398 Jun, [facility] [place] [facility] [address] [id number] [place] [address]- 6128 Jun, [facility] [place] [facility] [address] [id number] [place] [address]- 9858 Jun, [facility] [place] [facility] [address] [id number] [place] [address]- 2615 Jun, [facility] [place] [facility] [address] [id number] [place] [address]- 4098 Jun, [facility] [place] [facility] [address] [id number] [place] [address]- 5547 20 Jun, 2014 [facility] [place] [facility] [address] [id number] [place] [address]- 1175 20 Jun, 2014 [facility] [place] [facility] [address] [id number] [place] [address]- 3613 20 Jun, 2014 [facility] [place] [facility] [address] [id number] [place] [address]- 7220 19 Jun, 2014 [facility] [place] [facility] [address] [id number] [place] [address]- 7935 19 Jun, 2014 [facility] [place] [facility] [address] [id number] [place] [address]- 9325 18 Jun, 2014 [facility] [place] [facility] [address] [id number] [place] [address]- 2116 18 Jun, 2014 [facility] [place] [facility] [address] [id number] [place] [address]- 0681 17 Jun, 2014 [facility] [place] [facility] [address] [id number] [place] [address]- 3011 17 Jun, 2014 [facility] [place] [facility] [address] [id number] [place] [address]- 1917 16 Jun, 2014 [facility] [place] [facility] [address] [id number] [place] [address] 16 Jun, 2014 [facility] [place] [facility] [address] [id number] [place] [address] 7036 16 Jun, 2014 [facility] [place] [facility] [address] [id number] [place] [address]- 8077 16 Jun, 2014 [facility] [place] [facility] [address] [id number] [place] [address]- 6898 16 Jun, 2014 [facility] [place] [facility] [address] [id number] [place] [address]- 4[address] 16 Jun, 2014 [facility] [place] [facility] [address] [id number] [place] [address]- [address] 13 Jun, 2014 [facility] [place] [facility] [address] [id number] [place] [address] 9180 13 Jun, 2014 [facility] [place] [facility] [address] [id number] [place] [address]- 2661 12 Jun, 2014 [facility] [place] [facility] [address] [id number] [place] [address]- 1442 12 Jun, 2014 [facility] [place] [facility] [address] [id number] [place] [address]- 6964 09 Jun, 2014 [facility] [place] [facility] [address] [id number] [place] [address]- [address]131 09 Jun, 2014 [facility] [place] [facility] [address] [id number] [place] [address]- 5546 09 Jun, 2014 [facility] [place] [facility] [address] [id number] [place] [address]- [address] Jun, [facility] [place] [facility] [address] [id number] [place] [address]- [address]046 Jun, 2014 [facility] [place] [facility] [address] [id number] [place] [address]- [address] Jun, [facility] [place] [facility] [address] [id number] [place] [address]- [address]196 Jun, 2014 [facility] [place] [facility] [address] [id number] [place] [address]- 2884 Jun, [facility] [place] [facility] [address] [id number] [place] [address]- 9614 Jun, [facility] [place] [facility] [address] [id number] [place] [address]- 3760 Jun, [facility] [place] [facility] [address] [id number] [place] [address]- 9874 Jun, [facility] [place] [facility] [address] [id number] [place] [address]- 5214 Jun, [facility] [place] [facility] [address] [id number] [place] [address]- 6814 Jun, [facility] [place] [facility] [address] [id number] [place] [address]- 9946 Jun, [facility] [place] [facility] [address] [id number] [place] [address]- 4383 Jun, [facility] [place] [facility] [address] [id number] [place] [address]- [address]262 Jun, [facility] [place] [facility] [address] [id number] [place] [address]- [address]65 May, [facility] [place] [facility] [address] [id number] [place] [address]- [address] May, [facility] [place] [facility] [address] [id number] [place] [address]- [address]167 May, 2014 [facility] [place] [facility] [address] [id number] [place] [address]- 6586 May, 2014 [facility] [place] [facility] [address] [id number] [place] [address]- 4626 24 May, 2014 [facility] [place] [facility] [address] [facility] [id number] [place] [address]- [address]686 24 May, 2014 [facility] [place] [facility] [address] [facility] [id number] [place] [address] 9024 20 May, 2014 [facility] [place] [facility] [address] [id number] [place] [address]- 2589 20 May, 2014 [facility] [place] [facility] [address] [facility] [id number] [place] [address]- 9025 20 May, 2014 [facility] [place] [facility] [address] [id number] [place] [address] 20 May, 2014 [facility] [place] [facility] [address] [facility] [id number] [place] [address] 3512 18 May, 2014 [facility] [place] [facility] [address] [facility] [id number] [place] [address] 18 May, 2014 [facility] [place] [facility] [address] [facility] [id number] [place] [address] 8343 13 May, 2014 [facility] [place] [facility] [address] [facility] [id number] [place] [address] 2546 13 May, 2014 [facility] [place] [facility] [address] [facility] [id number] [place] [address] 2543 11 May, 2014 [facility] [place] [facility] [address] [facility] [id number] [place] [address] 0036 11 May, 2014 [facility] [place] [facility] [address] [facility] [id number] [address] 11 May, 2014 [facility] [place] [facility] [address] [facility] [id number] [place] [address] May, 2014 [facility] [place] [facility] [address] [facility] [id number] [place] [address] 7666 May, 2014 [facility] [place] [facility] [address] [facility] [id number] [place] [address] 9704 May, 2014 [facility] [place] [facility] [address] [facility] [id number] [place] [address]- 5291 May, 2014 [facility] [place] [facility] [address] [facility] [id number] [place] [address] 4033 May, 2014 [facility] [place] [facility] [address] [facility] [id number] [place] [address] 4812 May, 2014 [facility] [place] [facility] [address] [facility] [id number] [place] [address]- 8081 May, 2014 [facility] [place] [facility] [address] [id number] [place] [address] 4427 May, 2014 [facility] [place] [facility] [address] [facility] [id number] [place] [address]- 4268 May, [facility] [place] [facility] [address] [facility] [id number] [place] [address]- 8301 May, 2014 [facility] [place] [facility] [address] [facility] [id number] [place] [address]- 1514 Apr, [facility] [place] [facility] [address] [facility] [id number] [place] [address]- 4435 Apr, [facility] [place] [facility] [address] [facility] [id number] [address] 66[address] Apr, [facility] [place] [facility] [address] [facility] [id number] [address] 0409 Apr, [facility] [place] [facility] [address] [facility] [id number] [place] [address]- 5009 Apr, [facility] [place] [facility] [address] [facility] [id number] [address] 27[address] Apr, [facility] [place] [facility] [address] [id number] [place] [address]- 1091 Apr, [facility] [place] [facility] [address] [id number] [place] [address]- 5346 Apr, [facility] [place] [facility] [address] [id number] [place] [address]- 2735 Apr, [facility] [place] [facility] [address] [id number] [place] [address]- 0834 Apr, [facility] [place] [facility] [address] [id number] [place] [address]- 2496 Apr, [facility] [place] [facility] [address] [id number] [place] [address]- 3902 Apr, [facility] [place] [facility] [address] [id number] [place] [address]- 6062 Apr, [facility] [place] [facility] [address] [id number] [place] [address]- 1522 Apr, [facility] [place] [facility] [address] [id number] [place] [address]- 9577 Apr, [facility] [place] [facility] [address] [id number] [place] [address]- 6031 Apr, [facility] [place] [facility] [address] [id number] [place] [address]- 7435 Apr, [facility] [place] [facility] [address] [id number] [place] [address]- 4061 Apr, [facility] [place] [facility] [address] [id number] [place] [address]- 9154 Apr, [facility] [place] [facility] [address] [id number] [place] [address]- 2889 Apr, [facility] [place] [facility] [address] [id number] [place] [address]- 1063 Mar, [facility] [place] [facility] [address] [id number] [place] [address]- 7246 Mar, [facility] [place] [facility] [address] [id number] [place] [address]- 2626 Mar, [facility] [place] [facility] [address] [id number] [place] [address]- 7186 Mar, [facility] [place] [facility] [address] [id number] [place] [address]- 1202 Mar, [facility] [place] [facility] [address] [id number] [place] [address]- 1995 Mar, [facility] [place] [facility] [address] [id number] [place] [address]- 2630 Mar, [facility] [place] [facility] [address] [id number] [place] [address]- 8495 Mar, [facility] [place] [facility] [address] [id number] [place] [address]- 5711 15 Mar, 2014 [facility] [place] [facility] [address] [id number] [place] [address]- 5104 15 Mar, 2014 [facility] [place] [facility] [address] [id number] [place] [address]- 2741 15 Mar, 2014 [facility] [place] [facility] [address] [id number] [place] [address]- 1812 15 Mar, 2014 [facility] [place] [facility] [address] [id number] [place] [address]- 5430 Mar, [facility] [place] [facility] [address] [id number] [place] [address]- 5125 Mar, [facility] [place] [facility] [address] [id number] [place] [address]- 1639 Mar, [facility] [place] [facility] [address] [id number] [place] [address] Mar, [facility] [place] [facility] [address] [id number] [place] [address]- 1390 Feb, [facility] [place] [facility] [address] [id number] [place] [address]- 1503 28 Feb, 2014 [facility] [place] [facility] [address] [id number] [place] [address]- 9234 Feb, [facility] [place] [facility] [address] [id number] [place] [address]- 8251 Feb, [facility] [place] [facility] [address] [id number] [place] [address]- 5055 Feb, [facility] [place] [facility] [address] [id number] [place] [address]- 4687 Feb, [facility] [place] [facility] [address] [id number] [place] [address]- 2685 19 Feb, 2014 [facility] [place] [facility] [address] [id number] [place] [address]- 3863 18 Feb, 2014 [facility] [place] [facility] [address] [id number] [place] [address]- 7627 18 Feb, 2014 [facility] [place] [facility] [address] [id number] [place] [address]- 9550 17 Feb, 2014 [facility] [place] [facility] [address] [id number] [place] [address]- 6123 17 Feb, 2014 [facility] [place] [facility] [address] [id number] [place] [address]- 6368 17 Feb, 2014 [facility] [place] [facility] [address] [id number] [place] [address]- 1626 17 Feb, 2014 [facility] [place] [facility] [address] [id number] [place] [address]- 0188 14 Feb, 2014 [facility] [place] [facility] [address] [id number] [place] [address]- 5690 14 Feb, 2014 [facility] [place] [facility] [address] [id number] [place] [address]- 3176 14 Feb, 2014 [facility] [place] [facility] [address] [id number] [place] [address]- 4795 14 Feb, 2014 [facility] [place] [facility] [address] [id number] [place] [address]- 7835 Feb, [facility] [place] [facility] [address] [id number] [place] [address]- 7042 Feb, [facility] [place] [facility] [address] [id number] [place] [address]- 6950 Feb, [facility] [place] [facility] [address] [id number] [place] [address]- 7350 Feb, [facility] [place] [facility] [address] [id number] [place] [address]- 2104 Jan, [facility] [place] [facility] [address] [id number] [place] [address]- 0609 Jan, [facility] [place] [facility] [address] [id number] [place] [address]- 2199 Jan, [facility] [place] [facility] [address] [id number] [place] [address]- 9317 Jan, [facility] [place] [facility] [address] [id number] [place] [address]- 3830 Jan, [facility] [place] [facility] [address] [id number] [place] [address]- 5829 Jan, [facility] [place] [facility] [address] [id number] [place] [address]- 2224 Jan, [facility] [place] [facility] [address] [id number] [address] 1979 Jan, [facility] [place] [facility] [address] [id number] [place] [address]- 4237 Jan, [facility] [place] [facility] [address] [id number] [place] [address]- 7143 Jan, [facility] [place] [facility] [address] [id number] [address]- 3656 Jan, [facility] [place] [facility] [address] [id number] [address]- 7058 17 Jan, 2013 [facility] [place] [facility] [address] [id number] [place] [address]- 4011 17 Jan, 2013 [facility] [place] [facility] [address] [id number] [place] [address]- 8617 17 Jan, 2013 [facility] [place] [facility] [address] [id number] [place] [address]- 4907 15 Jan, 2014 [facility] [place] [facility] [address] [id number] [place] [address]- 2862 15 Jan, 2013 [facility] [place] [facility] [address] [id number] [place] [address]- 5675 14 Jan, 2014 [facility] [place] [facility] [address] [id number] [place] [address]- 9312 14 Jan, 2014 [facility] [place] [facility] [address] [id number] [place] [address]- 2483 13 Jan, 2014 [facility] [place] [facility] [address] [id number] [place] [address]- 3865 13 Jan, 2014 [facility] [place] [facility] [address] [id number] [place] [address]- 9505 13 Jan, 2014 [facility] [place] [facility] [address] [id number] [place] [address]- 6896 13 Jan, 2014 [facility] [place] [facility] [address] [id number] [address]- 8598 10 Jan, 2014 [facility] [place] [facility] [address] [id number] [place] [address]- 8437 Jan, [facility] [place] [facility] [address] [id number] [place] [address]- 8176 Jan, [facility] [place] [facility] [address] [id number] [address]- 3439 Dec, [facility] [place] [facility] [address] [id number] [place] [address]- 2079 25 Dec, 2013 [facility] [place] [facility] [address] [id number] [place] [address]- 0405 23 Sep, 2013 [facility] [place] [facility] [address] [id number] [place] [address]- 8296 23 Sep, 2013 [facility] [place] [facility] [address] [id number] [place] [address]- 2546 19 Sep, 2013 [facility] [place] [facility] [address] [id number] [place] [address] 2546 19 Sep, 2013 [facility] [place] [facility] [address] [id number] [place] [address]- 2543 17 Sep, 2013 [facility] [place] [facility] [address] [id number] [place] [address]- 8701 17 Sep, 2013 [facility] [place] [facility] [address] [id number] [place] [address]- 1030 09 Sep, 2013 [facility] [place] [facility] [address] [id number] [place] [address]- 7040 09 Sep, 2013 [facility] [place] [facility] [address] [id number] [place] [address]- 5179 08 Sep, 2013 [facility] [place] [facility] [address] [id number] [place] [address]- 2544 08 Sep, 2013 [facility] [place] [facility] [address] [id number] [place] [address]- 9283 04 Sep, 2013 [facility] [place] [facility] [address] [id number] [place] [address]- 2549 04 Sep, 2013 [facility] [place] [facility] [address] [id number] [place] [address] 254 02 Sep, 2013 [facility] [place] [facility] [address] [id number] [place] [address] 2546 02 Sep, 2013 [facility] [place] [facility] [address] [id number] [place] [address]- 254 02 Sep, 2013 [facility] [place] [facility] [address] [id number] [place] [address]- 7742 Dec, [facility] [place] [facility] [address] [id number] [place] [address]- 4709 Nov, [facility] [place] [facility] [address] [id number] [place] [address]- 8017 Nov, [facility] [place] [facility] [address] [id number] [place] [address]- 5860 Nov, [facility] [place] [facility] [address] [id number] [place] [address]- 5257 Nov, [facility] [place] [facility] [address] [id number] [place] [address]- 7747 Nov, [facility] [place] [facility] [address] [id number] [place] [address]- 2440 Nov, [facility] [place] [facility] [address] [id number] [place] [address]- 5787 Nov, [facility] [place] [facility] [address] [id number] [place] [address]- 7734 Nov, [facility] [place] [facility] [address] [id number] [place] [address]- 0749 Nov, [facility] [place] [facility] [address] [id number] [place] [address]- 3814 Nov, [facility] [place] [facility] [address] [id number] [place] [address]- 3350 Nov, [facility] [place] [facility] [address] [id number] [place] [address]- 7010 Nov, [facility] [place] [facility] [address] [id number] [place] [address]- 9530 Oct, [facility] [place] [facility] [address] [id number] [place] [address]- 5473 Oct, [facility] [place] [facility] [address] [id number] [place] [address]- 3028 Oct, [facility] [place] [facility] [address] [id number] [place] [address]- 5700 Oct, [facility] [place] [facility] [address] [id number] [place] [address]- 3285 Oct, [facility] [place] [facility] [address] [id number] [place] [address]- 8722 Oct, [facility] [place] [facility] [address] [id number] [place] [address]- 5708 Oct, [facility] [place] [facility] [address] [id number] [place] [address]- 4913 Oct, [facility] [place] [facility] [address] [id number] [place] [address]- 9260 Oct, [facility] [place] [facility] [address] [id number] [place] [address]- 4350 Oct, [facility] [place] [facility] [address] [id number] [place] [address]- 4793 Oct, [facility] [place] [facility] [address] [id number] [place] [address]- 8579 Oct, [facility] [place] [facility] [address] [id number] [place] [address]- 1271 Oct, [facility] [place] [facility] [address] [id number] [place] [address]- 8547 Oct, [facility] [place] [facility] [address] [id number] [place] [address]- 7493 Oct, [facility] [place] [facility] [address] [id number] [place] [address]- 3043 Oct, [facility] [place] [facility] [address] [id number] [place] [address]- 1596 Oct, [facility] [place] [facility] [address] [id number] [place] [address]- 1708 Sep, [facility] [place] [facility] [address] [id number] [place] [address]- 8935 Sep, [facility] [place] [facility] [address] [id number] [place] [address]- 6730 Sep, [facility] [place] [facility] [address] [id number] [place] [address]- 2380 Sep, [facility] [place] [facility] [address] [id number] [place] [address]- 1263 18 Sep, 2013 [facility] [place] [facility] [address] [id number] [place] [address]- 8715 Sep, [facility] [place] [facility] [address] [id number] [place] [address]- 4509 Sep, [facility] [place] [facility] [address] [id number] [place] [address]- 7539 Sep, [facility] [place] [facility] [address] [id number] [place] [address]- 3185 Sep, [facility] [place] [facility] [address] [id number] [place] [address]- 4795 Sep, [facility] [place] [facility] [address] [id number] [place] [address]- 9253 Sep, [facility] [place] [facility] [address] [id number] [place] [address]- 3817 Sep, [facility] [place] [facility] [address] [id number] [place] [address]- 1982 Sep, [facility] [place] [facility] [address] [id number] [place] [address]- 1243 Sep, [facility] [place] [facility] [address] [id number] [place] [address]- 5663 Sep, [facility] [place] [facility] [address] [id number] [place] [address]- 3105 Sep, [facility] [place] [facility] [address] [id number] [place] [address]- 5880 07 Sep, 2013 [facility] [place] [facility] [address] [id number] [place] [address]- 4883 Sep, [facility] [place] [facility] [address] [id number] [place] [address]- 1729 Sep, [facility] [place] [facility] [address] [id number] [place] [address]- 1994 Sep, [facility] [place] [facility] [address] [id number] [place] [address]- 4749 Sep, [facility] [place] [facility] [address] [id number] [place] [address]- 8243 Sep, [facility] [place] [facility] [address] [id number] [place] [address]- 2341 August, [facility] [place] [facility] [address] [id number] [place] [address]- 5131 August, [facility] [place] [facility] [address] [id number] [place] [address]- 9490 August, [facility] [place] [facility] [address] [id number] [place] [address]- 5751 August, [facility] [place] [facility] [address] [id number] [place] [address]- 8915 August, [facility] [place] [facility] [address] [id number] [place] [address]- 4832 August, [facility] [place] [facility] [address] [id number] [place] [address]- 7140 August, [facility] [place] [facility] [address] [id number] [place] [address]- 9428 August, [facility] [place] [facility] [address] [id number] [place] [address]- 8829 August, [facility] [place] [facility] [address] [id number] [place] [address]- 0293 August, [facility] [place] [facility] [address] [id number] [place] [address]- 6062 August, [facility] [place] [facility] [address] [id number] [place] [address]- 5959 28 Jul, 2013 [facility] [address] [id number] [place] [address]- 6403 Jul, [facility] [address] [id number] [place] [address]- 2108 Jul, [facility] [address] [id number] [place] [address]- 7212 Jul, [facility] [address] [id number] [place] [address]- 2155 Jul, [facility] [address] [id number] [place] [address]- 0906 Jul, [facility] [address] [id number] [place] [address] Jul, [facility] [address] [id number] [place] [address] Jul, [facility] [address] [id number] [place] [address] 18 Jul, 2013 [facility] [address] [id number] [place] [address] 18 Jul, 2013 [facility] [address] [id number] [place] [address] 16 Jul, 2013 [facility] [place] [facility] [address] [id number] [place] [address] 14 Jul, 2013 [facility] [address] [id number] [place] [address] 14 Jul, 2013 [facility] [place] [facility] [address] [id number] [place] [address] 11 Jul, 2013 [facility] [place] [facility] [address] [id number] [place] [address] 11 Jul, 2013 [facility] [place] [facility] [address] [id number] [place] [address] Jul, [facility] [place] [facility] [address] [id number] [place] [address] 164[address] Jul, [facility] [place] [facility] [address] [id number] [place] [address] Jul, [facility] [place] [facility] [address] [id number] [place] [address] Jul, [facility] [place] [facility] [address] [id number] [place] [address] Jul, [facility] [place] [facility] [address] [id number] [place] [address] Jul, [facility] [place] [facility] [address] [id number] [place] [address] Jul, [facility] [place] [facility] [address] [id number] [place] [address] Jul, [facility] [place] [facility] [address] [id number] [place] [address] Jun, [facility] [place] [facility] [address] [id number] [place] [address]448 Jun, [facility] [place] [facility] [address] [id number] [place] [address] Jun, [facility] [place] [facility] [address] [id number] [place] [address]- 1410 Jun, [facility] [place] [facility] [address] [id number] [place] [address] Jun, [facility] [place] [facility] [address] [id number] [place] [address]- [address] Jun, [facility] [place] [facility] [address] [id number] [place] [address]- 2481 Jun, [facility] [place] [facility] [address] [id number] [place] [address]- [address]377 Jun, [facility] [place] [facility] [address] [id number] [place] [address] Jun, [facility] [place] [facility] [address] [id number] [place] [address]- [address]28 Jun, [facility] [place] [facility] [address] [id number] [place] [address]- [address]40 Jun, [facility] [place] [facility] [address] [id number] [place] [address]- 78[address] Jun, [facility] [place] [facility] [address] [id number] [place] [address] May, [facility] [place] [facility] [address] [id number] [place] [address]- [address] May, [facility] [place] [facility] [address] [id number] [place] [address]- 6[address] Apr, [facility] [place] [facility] [address] [id number] [place] [address]- 5869 Apr, [facility] [place] [facility] [address] [id number] [place] [address] 10[address] Apr, [facility] [place] [facility] [address] [id number] [place] [address]- 3425 Apr, [facility] [place] [facility] [address] [id number] [place] [address] 8658 Apr, [facility] [place] [facility] [address] [id number] [place] [address]- 6726 Apr, [facility] [place] [facility] [address] [id number] [place] [address]- 1685 Apr, [facility] [place] [facility] [address] [id number] [place] [address]- 9685 Apr, [facility] [place] [facility] [address] [id number] [place] [address]- 1023 Apr, [facility] [place] [facility] [address] [id number] [place] [address]- 6489 Apr, [facility] [place] [facility] [address] [id number] [place] [address]- 8966 Apr, [facility] [place] [facility] [address] [id number] [place] [address] Mar, [facility] [place] [facility] [address] [id number] [place] [address]- 8852 Mar, [facility] [place] [facility] [address] [id number] [place] [address]- 1611 Mar, [facility] [place] [facility] [address] [id number] [place] [address] Mar, [facility] [place] [facility] [address] [id number] [place] [address]- [address]10 Feb, [facility] [place] [facility] [address] [id number] [place] [address]- 0446 Feb, [facility] [place] [facility] [address] [id number] [place] [address]- 9833 Feb, [facility] [place] [facility] [address] [id number] [place] [address]- 8681 Feb, [facility] [place] [facility] [address] [id number] [place] [address]- 0494 Feb, [facility] [place] [facility] [address] [id number] [place] [address]- 1569 Feb, [facility] [place] [facility] [address] [id number] [place] [address]- 6024 Feb, [facility] [place] [facility] [address] [id number] [place] [address]- 9171 Feb, [facility] [place] [facility] [address] [id number] [place] [address] Feb, [facility] [place] [facility] [address] [id number] [place] [address]- 4672 Feb, [facility] [place] [facility] [address] [id number] [place] [address] Feb, [facility] [place] [facility] [address] [id number] [place] [address]- 9549 Jan, [facility] [place] [facility] [address] [id number] [place] [address]- 1305 Jan, [facility] [place] [facility] [address] [id number] [place] [address]- 9707 Jan, [facility] [place] [facility] [address] [id number] [place] [address]- 4654 Jan, [facility] [place] [facility] [address] [id number] [place] [address]- 3254 Jan, [facility] [place] [facility] [address] [id number] [place] [address]- 9814 Jan, [facility] [place] [facility] [address] [id number] [place] [address]- 3992 Jan, [facility] [place] [facility] [address] [id number] [address]- [address] 02 Jan, 2013 [facility] [place] [facility] [address] [id number] [address] 30 Sep2012 [facility] [place] [facility] [address] [id number] [address]- 2053 25 Sep2012 [facility] [place] [facility] [address] [id number] [address]- [address] 18 Sep, 2012 [facility] [place] [facility] [address] [id number] [address]- 9835 17 Sep, 2012 [facility] [place] [facility] [address] [id number] [address]- [address]307 17 Sep, 2012 [facility] [place] [facility] [address] [id number] [address]- 2383 16 Sep, 2012 [facility] [place] [facility] [address] [id number] [address] 13 Sep, 2012 [facility] [place] [facility] [address] [id number] [place] [address] 11 Dec, 2012 [facility] [place] [facility] [address] [id number] [place] [address] 05 Dec, 2012 [facility] [place] [facility] [address] [id number] [place] [address] 04 Dec, 2012 [facility] [place] [facility] [address] [id number] [place] [address] 7348 30 Nov, 2012 [facility] [place] [facility] [address] [id number] [place] [address] 2494 Nov, [facility] [place] [facility] [address] [id number] [place] [address] 1618 Nov, [facility] [place] [facility] [address] [id number] [place] [address]- 1427 Nov, [facility] [place] [facility] [address] [id number] [place] [address]- 1683 Nov, [facility] [place] [facility] [address] [id number] [place] [address] 0404 Nov, [facility] [place] [facility] [address] [id number] [place] [address]- 4459 Nov, [facility] [place] [facility] [address] [id number] [place] [address]- 6872 Oct, [facility] [place] [facility] [address] [id number] [place] [address]- 3874 Oct, [facility] [place] [facility] [address] [id number] [place] [address]- 4529 Oct, [facility] [place] [facility] [address] [id number] [place] [address]- 3372 Oct, [facility] [place] [facility] [address] [id number] [place] [address]- 4428 15 Oct, 2012 [facility] [place] [facility] [address] [id number] [place] [address]- 4798 Oct, [facility] [place] [facility] [address] [id number] [place] [address]- 2413 Sep, [facility] [address] [id number] [place] [address]- 0596 Sep, [facility] [address] [id number] [place] [address] 6311 Sep, [facility] [address] [id number] [place] [address]- 6415 14 Sep, 2012 [facility] [address] [id number] [place] [address] 3408 13 Sep, 2012 [facility] [address] [id number] [place] [address]- 1541 Sep, [facility] [address] [id number] [place] [address]- 2480 Sep, [facility] [address] [id number] [place] [address]- 0087 Sep, [facility] [address] [id number] [place] [address]- 2497 Sep, [facility] [address] [id number] [place] [address] August, [facility] [address] [id number] [place] [address] 9729 August, [facility] [address] [id number] [place] [address] August, [facility] [place] [facility] [address] [id number] [place] [address]- 7954 August, [facility] [place] [facility] [address] [id number] [place] [address] 9165 August, [facility] [place] [facility] [address] [id number] [place] [address] 2046 August, [facility] [place] [facility] [address] [id number] [address] 25[address] August, [facility] [address] [id number] [place] [address] 2006 August, [facility] [address] [id number] [place] [address] 9898 Jul, [facility] [address] [id number] [place] [address]- 1038 Jul, [facility] [address] [place] [id number] Jul [facility] [address] [id number] [place] [address]- 8645 Jun, [facility] [address] [id number] [place] [address]- 6437 Jun, [facility] [address] [id number] [place] [address]- 2715 Jun, [facility] [address] [id number] [address] Jun, [facility] [address] [id number] [place] [address]- 8046 Jun, [facility] [address] [id number] [place] [address] 6307 Jun, [facility] [address] [id number] [place] [address]- 1257 May, [facility] [address] [id number] [place] [address] 0[address] May, [facility] [address] [id number] [place] [address]- 1148 May, [facility] [address] [id number] [place] [address]- 4856 May, [facility] [address] [id number] [place] [address]- 4186 May, [facility] [address] [id number] [place] [address]- 5006 30 Apr, 2012 [facility] [address] [id number] [place] [address]- 6396 15 Apr, 2012 [facility] [address] [id number] [place] [address] 2546 Apr, [facility] [address] [id number] [place] [address]- 3666 Apr, [facility] [address] [id number] [place] [address] 2541 Apr, [facility] [address] [id number] [place] [address]- 6123 Apr, [facility] [address] [id number] [place] [address] 3297 26 Mar, 2012 [facility] [address] [id number] [place] [address]- 2621 20 Mar, 2012 [facility] [address] [id number] [place] [address]- 7019 20 Mar, 2012 [facility] [address] [id number] [place] [address] 2549 19 Mar, 2012 [facility] [address] [id number] [place] [address]- 2540 19 Mar, 2012 [facility] [address] [id number] [place] [address] 2546 18 Mar, 2012 [facility] [address] [id number] [place] [address]- 2542 18 Mar, 2012 [facility] [place] [facility] [address] [id number] [place] [address] 2546 10 Mar, 2012 [facility] [place] [facility] [address] [id number] [place] [address]- 2546 10 Mar, 2012 [facility] [address] [id number] [place] [address] 2540 Mar, [facility] [place] [facility] [address] [id number] [place] [address]- 8384 Mar, [facility] [place] [facility] [address] [id number] [place] [address]- 1710 Feb, [facility] [place] [facility] [address] [id number] [place] [address]- 0123 Feb, [facility] [place] [facility] [address] [id number] [place] [address], [place] [address]- 3561 Feb, [facility] [place] [facility] [address] [id number] [place] [address]- 7647 Feb, [facility] [place] [facility] [address] [id number] [place] [address]- 5526 Feb, [facility] [place] [facility] [address] [id number] [place] [address]- 7588 Feb, [facility] [place] [facility] [address] [id number] [place] [address]- 3191 Feb, [facility] [place] [facility] [address] [id number] [place] [address]- 9738 Feb, [facility] [place] [facility] [address] [id number] [place] [address]- 7235 Feb, [facility] [place] [facility] [address] [id number] [place] [address]- 5689 Feb, [facility] [place] [facility] [address] [id number] [address]- 5083 Feb, [facility] [place] [facility] [address] [id number] [place] [address]- 8913 Jan, [facility] [place] [facility] [address] [id number] [place] [address]- 2662 Jan, [facility] [place] [facility] [address] [id number] [place] [address]- 3727 Jan, [facility] [place] [facility] [address] [id number] [address]- 8056 Jan, [facility] [place] [facility] [address] [id number] [place] [address]- 9617 Jan, [facility] [place] [facility] [address] [id number] [place] [address]- 0906 Jan, [facility] [place] [facility] [address] [id number] [place] [address]- 8235 Jan, [facility] [place] [facility] [address] [id number] [place] [address]- 8013 24 Dec, 2011 [facility] [place] [facility] [address] [id number] [place] [address]- 1299 17 Dec, 2011 [facility] [place] [facility] [address] [id number] [place] [address]- 0011 13 Dec, 2011 [facility] [place] [facility] [address] [id number] [place] [address]- 9421 Dec, [facility] [place] [facility] [address] [id number] [place] [address]- 5435 Nov, [facility] [place] [facility] [address] [id number] [place] [address]- 0190 Nov, [facility] [place] [facility] [address] [id number] [place] [address]- 8471 Nov, [facility] [place] [facility] [address] [id number] [place] [address]- 5949 15 Nov, 2011 [facility] [place] [facility] [address] [id number] [place] [address]- 1506 14 Nov, 2011 [facility] [place] [facility] [address] [id number] [place] [address]- 4088 13 Nov, 2011 [facility] [place] [facility] [address] [id number] [place] [address]- 8632 10 Nov, 2011 [facility] [place] [facility] [address] [id number] [place] [address]- 8554 09 Nov, 2011 [facility] [place] [facility] [address] [id number] [place] [address]- 8362 Nov, [facility] [place] [facility] [address] [id number] [place] [address]- 3205 Nov, [facility] [place] [facility] [address] [id number] [place] [address]- 3966 Nov, [facility] [place] [facility] [address] [id number] [place] [address]- 7500 Nov, [facility] [place] [facility] [address] [id number] [place] [address]- 7166 Nov, [facility] [place] [facility] [address] [id number] [place] [address]- 9349 Oct, [facility] [place] [facility] [address] [id number] [place] [address]- 3217 Oct, [facility] [place] [facility] [address] [id number] [place] [address]- 0194 Oct, [facility] [address] [id number] [place] [address]- 7730 Oct, [facility] [place] [facility] [address] [id number] [place] [address]- 0112 Oct, [facility] [place] [facility] [address] [id number] [place] [address]- 3823 Oct, [facility] [place] [facility] [address] [id number] [place] [address]- 3567 Oct, [facility] [place] [facility] [address] [id number] [place] [address]- 8836 Oct, [facility] [place] [facility] [address] [id number] [place] [address]- 4060 Oct, [facility] [place] [facility] [address] [id number] [place] [address]- 1215 Sep, [facility] [place] [facility] [address] [id number] [place] [address]- 9316 Sep, [facility] [place] [facility] [address] [id number] [place] [address]- 0769 Sep, [facility] [place] [facility] [address] [id number] [place] [address]- 1740 Sep, [facility] [place] [facility] [address] [id number] [place] [address]- 7454 Sep, [facility] [place] [facility] [address] [id number] [place] [address]- 2769 Sep, [facility] [place] [facility] [address] [id number] [place] [address]- 5833 Sep, [facility] [place] [facility] [address] [id number] [place] [address]- 4884 Sep, [facility] [place] [facility] [address] [id number] [place] [address]- 3709 August, [facility] [place] [facility] [address] [id number] [place] [address]- 0171 August, [facility] [place] [facility] [address] [id number] [place] [address]- 4462 August, [facility] [place] [facility] [address] [id number] [place] [address]- 4926 August, [facility] [place] [facility] [address] [id number] [place] [address]- 6949 August, [facility] [place] [facility] [address] [id number] [place] [address]- 3090 August, [facility] [place] [facility] [address] [id number] [place] [address]- 6282 August, [facility] [place] [facility] [address] [id number] [place] [address]- 2239 August, [facility] [place] [facility] [address] [id number] [place] [address]- 1682 August, [facility] [place] [facility] [address] [id number] [place] [address]- 5384 August, [facility] [address] [facility] [id number] [place] [address]- 6815 August, [facility] [address] [facility] [id number] [place] [address]- 7724 August, [facility] [address] [facility] [id number] [place] [address]- 7211 Oct, IMMUNIZATIONS No Known Immunizations SOCIAL HISTORY Never Assessed REASON FOR VISIT After Hours Clinical Advice PLAN OF CARE VITAL SIGNS MEDICATIONS Unknown [...] Hospitalization History suicidal ideations-[place] 12/28 Hospitalization History hypoxia--[facility] 02/13/2016 Hospitalization History shortness of breath at june 2016 Hospitalization History Shortness of breath at august 2016 Hospitalization History SOB, chest pain at 12/2016
--- OUTSIDE RECORDS SUMMARY | 2017-11-24 17:56 | XMS REPORT ---
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 [address] 57106 2546 Nov, Diarrhea 787.91 and Hyperlipidemia 272.4 [facility], [place] [id number] [place] [address] 87594 2546 Nov, Diarrhea 787.91 [facility], [place] [id number] [place] [address] 59700 2546 Nov, Affective disorder 296.90 [facility], [place] [id number] [place] [address] 18761 2546 Nov, Affective disorder 296.90 [facility], [place] [id number] [place] [address] 65376- 5776 Nov, Affective disorder 296.90 [facility], [place] [id number] [place] [address] 13357- 5854 Nov, [facility], [place] [address] [place] [address] 34556 2548 Nov, [facility], [place] [address] [place] [address] 20259 2542 Nov, [facility], [place] [id number] [place] [address] 40972 2541 Nov, Episodic mood disorder 296.90 [facility], [place] [address], [place] [address] 2548 Nov, [facility], [place] [address], [place] [address] 2548 Nov, [facility], [place] [address] [place] [address] 05245 2547 Nov, [facility], [place] [address], [place] [address]- 2540 Nov, [facility], [place] [address], [place] [address]- 2542 Nov, [facility], [place] [address], [place] [address]- 0598 Nov, Lymphedema 457.1 ; Hyperlipidemia 272.4 ; Essential hypertension, benign 401.1 and Numbness of toes 782.0 [facility], [place] [id number] [address]- 8491 Nov, Episodic mood disorder 296.90 [facility], [place] [id number] [place] [address], [place] [address]- 7777 Oct, [facility], [place] [address], [place] [address]- 1019 Oct, [facility], [place] [address], [place] [address]- 8134 Oct, [facility], [place] [address], [place] [address]- 7408 Oct, [facility], [place] [address], [place] [address]- 5670 Oct, [facility], [place] [id number] [address]- 1024 Oct, [facility], [place] [address], [place] [address]- 5340 Oct, [facility], [place] [address], [place] [address]- 4390 Oct, [facility], [place] [address] 0196 Oct, Episodic mood disorder 296.90 [facility], [place] [id number] [address]- 1129 Sep, [facility], [place] [address] 2643 Sep, [facility], [place] [address] 5727 Sep, [facility], [place] [address], [place] [address]- 3411 Sep, [facility], [place] [address], [place] [address]- 1846 Sep, [facility], [place] [id number] [place] [address] 38764- 1861 Sep, Episodic mood disorder 296.90 [facility], [place] [id number] [place] [address] 05415- 3682 Sep, Unspecified episodic mood disorder 296.90 [facility] [place] [id number] [place] [address] 69332- 0204 18 Sep, 2014 [facility] [place] [id number] [place] [address] 14946- 5666 18 Sep, 2014 [facility] [place] [id number] [place] [address] 60217- 6668 16 Sep, 2014 Episodic mood disorder 296.90 [facility] [place] [id number] [place] [address] 86619- 2655 15 Sep, 2014 [facility] [place] [address] [place] [address] 28372- 1607 Sep, [facility] [place] [address] [place] [address] 02408- 8768 12 Sep, 2014 [facility] [place] [address] [place] [address] 74161- 6164 09 Sep, 2014 Hematemesis 578.0 and Vomiting 787.03 [facility], [place] [address], [place] [address]- 1594 09 Sep, 2014 Episodic mood disorder 296.90 [facility] [place] [id number] [place] [address] 08943- 5507 08 Sep, 2014 [facility] [place] [address], [place] [address]- 3217 08 Sep, 2014 [facility] [place] [address] [place] [address] 27596- 6141 Sep, Diabetes mellitus without mention of complication, type II or unspecified type, not stated as uncontrolled 250.00 and Other chronic pain 338.29 [facility] [place] [id number] [place] [address] 44013- 2163 Sep, Episodic mood disorder 296.90 [facility] [place] [id number] [place] [address] 23028- 2811 Sep, [facility] [place] [id number] [place] [address] 56736- 5086 Sep, Episodic mood disorder 296.90 [facility] [place] [id number] [place] [address] 26066- 4466 Sep, [facility] [place] [id number] [place] [address] 18345- 2708 August, [facility] [place] [id number] [place] [address] 62041- 7847 August, [facility] [place] [id number] [place] [address] 76896- 5488 August, Episodic mood disorder 296.90 [facility] [place] [id number] [place] [address] 80844- 3007 August, [facility] [place] [id number] [place] [address] 71719- 0217 August, Unspecified episodic mood disorder 296.90 [facility] [place] [address], [place] [address]- 4706 August, Vomiting 787.03 [facility] [place] [address], [place] [address]- 2824 August, [facility] [place] [id number] [place] [address] 80609- 5863 August, [facility] [place] [id number], [place] [address]- 5890 August, [facility] [place] [id number] [place] [address] 70199- 2546 August, [facility] [place] [facility] [address] [id number] [place] [address]- 2298 August, [facility] [place] [facility] [address] [id number] [place] [address]- 3219 Jul, [facility] [place] [facility] [address] [id number] [place] [address]- 0282 Jul, [facility] [place] [facility] [address] [id number] [place] [address]- 6046 Jul, [facility] [place] [facility] [address] [id number] [place] [address]- 9720 30 Jun, 2014 [facility] [place] [facility] [address] [id number] [place] [address]- 0342 Jun, [facility] [place] [facility] [address] [id number] [place] [address]- 8358 Jun, [facility] [place] [facility] [address] [id number] [place] [address]- 7107 Jun, [facility] [place] [facility] [address] [id number] [place] [address]- 2493 Jun, [facility] [place] [facility] [address] [id number] [place] [address]- 3925 Jun, [facility] [place] [facility] [address] [id number] [place] [address]- 2694 Jun, [facility] [place] [facility] [address] [id number] [place] [address]- 4517 30 Jun, 2014 [facility] [place] [facility] [address] [id number] [place] [address]- 9710 Jun, [facility] [place] [facility] [address] [id number] [place] [address]- 4101 Jun, [facility] [place] [facility] [address] [id number] [place] [address]- 4375 Jun, [facility] [place] [facility] [address] [id number] [place] [address]- 9657 Jun, [facility] [address] [id number] [place] [address]- 9650 Jun, [facility] [place] [facility] [address] [id number] [place] [address]- 7366 Jun, [facility] [address] [id number] [place] [address]- 4939 Jun, [facility] [place] [facility] [address] [id number] [place] [address]- 3484 Jun, [facility] [place] [facility] [address] [id number] [place] [address]- 0964 Jun, [facility] [place] [facility] [address] [id number] [place] [address]- 3872 Jun, [facility] [place] [facility] [address] [id number] [place] [address]- 5210 Jun, [facility] [address] [id number] [place] [address]- 1897 Jun, [facility] [place] [facility] [address] [id number] [place] [address]- 3961 Jun, [facility] [address] [id number] [place] [address]- 9253 Jun, [facility] [place] [facility] [address] [id number] [place] [address]- 9902 Jun, [facility] [place] [facility] [address] [id number] [place] [address]- 6948 Jun, [facility] [place] [facility] [address] [id number] [place] [address]- 0808 Jun, [facility] [place] [facility] [address] [id number] [place] [address]- 0319 19 Jun, 2014 [facility] [place] [facility] [address] [id number] [place] [address] 19 Jun, 2014 [facility] [place] [facility] [address] [id number] [place] [address] 18 Jun, 2014 [facility] [place] [facility] [address] [id number] [place] [address] 18 Jun, 2014 [facility] [place] [facility] [address] [id number] [place] [address] 17 Jun, 2014 [facility] [place] [facility] [address] [id number] [place] [address] 17 Jun, 2014 [facility] [place] [facility] [address] [id number] [place] [address] 16 Jun, 2014 [facility] [place] [facility] [address] [id number] [place] [address]758 16 Jun, 2014 [facility] [place] [facility] [address] [id number] [place] [address] 16 Jun, 2014 [facility] [place] [facility] [address] [id number] [place] [address] 238[address] 16 Jun, 2014 [facility] [place] [facility] [address] [id number] [place] [address]- [address] 16 Jun, 2014 [facility] [place] [facility] [address] [id number] [place] [address] 16 Jun, 2014 [facility] [place] [facility] [address] [id number] [place] [address]- [address] 13 Jun, 2014 [facility] [place] [facility] [address] [id number] [place] [address] 13 Jun, 2014 [facility] [place] [facility] [address] [id number] [place] [address]- 4985 12 Jun, 2014 [facility] [place] [facility] [address] [id number] [place] [address]- 6542 12 Jun, 2014 [facility] [place] [facility] [address] [id number] [place] [address] 09 Jun, 2014 [facility] [place] [facility] [address] [id number], [place] [address] Jun, [facility] [place] [facility] [address] [id number] [place] [address] Jun, 2014 [facility] [place] [facility] [address] [id number] [place] [address] Jun, [facility] [place] [facility] [address] [id number] [place] [address] Jun, [facility] [place] [facility] [address] [id number] [place] [address]396 Jun, [facility] [place] [facility] [address] [id number] [place] [address]- [address] Jun, [facility] [place] [facility] [address] [id number] [place] [address] Jun, [facility] [place] [facility] [address] [facility] [id number] [place] [address]- [address] Jun, [facility] [place] [facility] [address] [facility] [id number] [place] [address] Jun, [facility] [place] [facility] [address] [id number] [place] [address] Jun, [facility] [place] [facility] [address] [facility] [id number] [place] [address] Jun, [facility] [place] [facility] [address] [id number], [place] [address] Jun, [facility] [place] [facility] [address] [id number], [place] [address] Jun, [facility] [place] [facility] [address] [id number] [place] [address] Jun, [facility] [place] [facility] [address] [facility] [id number] [place] [address] Jun, [facility] [place] [facility] [address] [facility] [id number] [place] [address] May, [facility] [place] [facility] [address] [id number] [place] [address] May, 2014 [facility] [place] [facility] [address] [id number] [place] [address]- 78[address] May, 2014 [facility] [place] [facility] [address] [facility] [id number] [place] [address]- [address]64 May, 2014 [facility] [place] [facility] [address] [facility] [id number] [place] [address]- 134[address] 24 May, 2014 [facility] [place] [facility] [address] [id number] [place] [address]- [address] May, 2014 [facility] [place] [facility] [address] [id number] [place] [address]- [address] May, 2014 [facility] [place] [facility] [address] [facility] [id number] [place] [address] 20 May, 2014 [facility] [place] [facility] [address] [facility] [id number] [place] [address]- [address]009 May, 2014 [facility] [place] [facility] [address] [facility] [id number] [place] [address]- [address] 20 May, 2014 [facility] [place] [facility] [address] [facility] [id number] [place] [address]- [address] 18 May, 2014 [facility] [place] [facility] [address] [facility] [id number] [place] [address]- [address] 18 May, 2014 [facility] [place] [facility] [address] [facility] [id number] [place] [address]- [address]42 13 May, 2014 [facility] [place] [facility] [address] [facility] [id number] [place] [address] 13 May, 2014 [facility] [place] [facility] [address] [facility] [id number] [place] [address] 2628 May, 2014 [facility] [place] [facility] [address] [facility] [id number] [place] [address] 5806 11 May, 2014 [facility] [place] [facility] [address] [facility] [id number] [place] [address] 9[address] May, 2014 [facility] [place] [facility] [address] [id number] [place] [address] 0902 May, 2014 [facility] [place] [facility] [address] [id number] [place] [address] 9816 May, 2014 [facility] [place] [facility] [address] [id number] [place] [address] 5786 May, 2014 [facility] [place] [facility] [address] [id number] [place] [address] 8561 May, 2014 [facility] [place] [facility] [address] [id number] [place] [address]- 9531 May, 2014 [facility] [place] [facility] [address] [facility] [id number] [place] [address] 7767 May, 2014 [facility] [place] [facility] [address] [facility] [id number] [place] [address]- 0552 May, 2014 [facility] [place] [facility] [address] [facility] [id number] [place] [address] 7108 May, 2014 [facility] [place] [facility] [address] [facility] [id number] [place] [address]- 2167 May, 2014 [facility] [place] [facility] [address] [facility] [id number], [place] [address] 6852 May, [facility] [place] [facility] [address] [facility] [id number], [place] [address] 2984 Apr, [facility] [place] [facility] [address] [facility] [id number] [place] [address]- 4410 Apr, [facility] [place] [facility] [address] [facility] [id number], [place] [address] 6[address] Apr, [facility] [place] [facility] [address] [facility] [id number], [place] [address]- 9903 Apr, [facility] [place] [facility] [address] [facility] [id number], [place] [address] 5[address] Apr, [facility] [place] [facility] [address] [id number] [place] [address]- 4373 Apr, [facility] [place] [facility] [address] [id number] [place] [address]- 3377 Apr, [facility] [place] [facility] [address] [id number] [place] [address]- 7278 Apr, [facility] [place] [facility] [address] [id number] [place] [address]- 0622 Apr, [facility] [place] [facility] [address] [id number] [place] [address]- 9029 Apr, [facility] [place] [facility] [address] [id number] [place] [address] 1958 Apr, [facility] [place] [facility] [address] [id number] [place] [address]- 5760 Apr, [facility] [place] [facility] [address] [id number] [place] [address]- 3290 Apr, [facility] [place] [facility] [address] [id number] [place] [address]- 7223 Apr, [facility] [place] [facility] [address] [id number] [place] [address]- 7987 Apr, [facility] [place] [facility] [address] [id number], [place] [address]- 288[address] Apr, [facility] [place] [facility] [address] [id number], [place] [address] 9[address] Apr, [facility] [place] [facility] [address] [id number], [place] [address]- 6855 Apr, [facility] [place] [facility] [address] [id number] [place] [address]- 7877 Apr, [facility] [place] [facility] [address] [id number] [place] [address]- 5418 Apr, [facility] [place] [facility] [address] [id number] [place] [address]- 0914 Mar, [facility] [place] [facility] [address] [id number] [place] [address]- 0086 Mar, [facility] [place] [facility] [address] [id number] [place] [address]- 8656 Mar, [facility] [place] [facility] [address] [id number] [place] [address]- 5876 Mar, [facility] [place] [facility] [address] [id number] [place] [address]- 7484 Mar, [facility] [place] [facility] [address] [id number] [place] [address]- 6639 Mar[facility] [place] [facility] [address] [id number] [place] [address]- 8898 Mar, [facility] [place] [facility] [address] [id number] [place] [address]- 8043 Mar, [facility] [place] [facility] [address] [id number] [place] [address]- 6952 15 Mar, 2014 [facility] [place] [facility] [address] [id number] [place] [address] 5131 15 Mar, 2014 [facility] [place] [facility] [address] [id number] [place] [address]- 8092 15 Mar, 2014 [facility] [place] [facility] [address] [id number] [place] [address]- 2881 15 Mar, 2014 [facility] [place] [facility] [address] [id number] [place] [address]- 0496 Mar, [facility] [place] [facility] [address] [id number] [place] [address] Mar, [facility] [place] [facility] [address] [id number] [place] [address]- 1406 02 Mar, 2014 [facility] [place] [facility] [address] [id number] [place] [address]- 2607 Mar, [facility] [place] [facility] [address] [id number] [place] [address]- 9924 Feb, [facility] [place] [facility] [address] [id number] [place] [address]- 0928 Feb, [facility] [place] [facility] [address] [id number] [place] [address]- 9715 Feb, [facility] [place] [facility] [address] [id number] [place] [address]- 4539 Feb, [facility] [place] [facility] [address] [id number] [place] [address]- 9400 Feb, [facility] [place] [facility] [address] [id number] [place] [address]- 4255 Feb, [facility] [place] [facility] [address] [id number] [place] [address]- 4570 Feb, [facility] [place] [facility] [address] [id number] [place] [address]- 2848 Feb, [facility] [place] [facility] [address] [id number] [place] [address]- 9622 Feb, [facility] [place] [facility] [address] [id number] [place] [address]- 8397 Feb, [facility] [place] [facility] [address] [id number], [place] [address]- 4989 Feb, [facility] [place] [facility] [address] [id number], [place] [address]- 0505 Feb, [facility] [place] [facility] [address] [id number] [place] [address]- 0674 Feb, [facility] [place] [facility] [address] [id number] [place] [address]- 6857 14 Feb, 2014 [facility] [place] [facility] [address] [id number] [place] [address]- 7082 Feb, [facility] [place] [facility] [address] [id number] [place] [address]- 1027 14 Feb, 2014 [facility] [place] [facility] [address] [id number] [place] [address]- 3865 14 Feb, 2014 [facility] [place] [facility] [address] [id number] [place] [address]- 0891 Feb, [facility] [place] [facility] [address] [id number] [place] [address]- 3073 Feb, [facility] [place] [facility] [address] [id number] [place] [address]- 5199 Feb, [facility] [place] [facility] [address] [id number] [place] [address]- 7469 Feb, [facility] [place] [facility] [address] [id number] [place] [address]- 6455 Jan, [facility] [place] [facility] [address] [id number] [place] [address]- 1079 Jan, [facility] [place] [facility] [address] [id number] [place] [address]- 1703 Jan, [facility] [place] [facility] [address] [id number] [place] [address]- 1685 Jan, [facility] [place] [facility] [address] [id number] [place] [address]- 9771 Jan, [facility] [place] [facility] [address] [id number] [place] [address]- 2108 Jan, [facility] [place] [facility] [address] [id number] [place] [address]- 5357 Jan, [facility] [place] [facility] [address] [id number] [place] [address]- 5043 Jan, [facility] [place] [facility] [address] [id number] [place] [address]- 4372 Jan, [facility] [place] [facility] [address] [id number] [place] [address]- 9888 Jan, [facility] [place] [facility] [address] [id number] [place] [address]- 0420 17 Jan, 2013 [facility] [place] [facility] [address] [id number] [place] [address]- 2260 17 Jan, 2013 [facility] [place] [facility] [address] [id number] [place] [address]- 5625 17 Jan, 2013 [facility] [place] [facility] [address] [id number] [place] [address]- 6723 17 Jan, 2013 [facility] [place] [facility] [address] [id number] [place] [address]- 3771 15 Jan, 2014 [facility] [place] [facility] [address] [id number] [place] [address]- 1830 15 Jan, 2014 [facility] [place] [facility] [address] [id number] [place] [address]- 2017 14 Jan, 2014 [facility] [place] [facility] [address] [id number] [place] [address]- 6840 14 Jan, 2014 [facility] [place] [facility] [address] [id number] [place] [address]- 5334 13 Jan, 2014 [facility] [place] [facility] [address] [id number] [place] [address]- 8052 13 Jan, 2014 [facility] [place] [facility] [address] [id number] [place] [address]- 6080 13 Jan, 2014 [facility] [place] [facility] [address] [id number] [place] [address]- 5556 13 Jan, 2014 [facility] [place] [facility] [address] [id number] [place] [address]- 6868 10 Jan, 2014 [facility] [place] [facility] [address] [id number] [place] [address]- 4798 02 Jan, 2014 [facility] [place] [facility] [address] [id number] [place] [address]- 1732 02 Jan, 2014 [facility] [place] [facility] [address] [id number] [place] [address]- 0476 25 Sep, 2013 [facility] [place] [facility] [address] [id number] [place] [address] 2546 25 Sep, 2013 [facility] [place] [facility] [address] [id number] [place] [address]- 8326 23 Sep, 2013 [facility] [place] [facility] [address] [id number] [place] [address] 2546 23 Sep, 2013 [facility] [place] [facility] [address] [id number] [place] [address] 2545 19 Sep, 2013 [facility] [place] [facility] [address] [id number] [place] [address]- 6902 19 Sep, 2013 [facility] [place] [facility] [address] [id number] [place] [address]- 3855 17 Sep, 2013 [facility] [place] [facility] [address] [id number] [place] [address]- 6100 17 Sep, 2013 [facility] [place] [facility] [address] [id number] [place] [address]- 8648 09 Sep, 2013 [facility] [place] [facility] [address] [id number] [place] [address]- 8999 09 Sep, 2013 [facility] [place] [facility] [address] [id number] [place] [address]- 5862 08 Sep, 2013 [facility] [place] [facility] [address] [id number], [place] [address]- 0159 08 Sep, 2013 [facility] [place] [facility] [address] [id number], [place] [address]- 2545 04 Sep, 2013 [facility] [place] [facility] [address] [id number] [place] [address] 2542 04 Sep, 2013 [facility] [place] [facility] [address] [id number] [place] [address]- 8725 02 Sep, 2013 [facility] [place] [facility] [address] [id number] [place] [address]- 9205 02 Sep, 2013 [facility] [place] [facility] [address] [id number] [place] [address]- 9401 Dec, [facility] [place] [facility] [address] [id number] [place] [address]- 5755 Dec, [facility] [place] [facility] [address] [id number] [place] [address]- 9297 Nov, [facility] [place] [facility] [address] [id number] [place] [address]- 9367 Nov, [facility] [place] [facility] [address] [id number] [place] [address]- 8361 Nov, [facility] [place] [facility] [address] [id number] [place] [address]- 7990 Nov, [facility] [place] [facility] [address] [id number] [place] [address]- 4872 Nov, [facility] [place] [facility] [address] [id number] [place] [address]- 3677 Nov, [facility] [place] [facility] [address] [id number] [place] [address]- 3043 Nov, [facility] [place] [facility] [address] [id number] [place] [address]- 1427 Nov, [facility] [place] [facility] [address] [id number] [place] [address]- 0372 Nov, [facility] [place] [facility] [address] [id number] [place] [address]- 7409 Nov, [facility] [place] [facility] [address] [id number] [place] [address]- 3549 Nov, [facility] [place] [facility] [address] [id number] [place] [address]- 0194 Nov, [facility] [place] [facility] [address] [id number] [place] [address]- 0638 Oct, [facility] [place] [facility] [address] [id number] [place] [address]- 9136 Oct, [facility] [place] [facility] [address] [id number] [place] [address]- 5580 Oct, [facility] [place] [facility] [address] [id number] [place] [address]- 3401 Oct, [facility] [place] [facility] [address] [id number] [place] [address]- 5315 Oct, [facility] [place] [facility] [address] [id number] [place] [address]- 2949 Oct, [facility] [place] [facility] [address] [id number] [place] [address]- 9823 Oct, [facility] [place] [facility] [address] [id number] [place] [address]- 6806 Oct, [facility] [place] [facility] [address] [id number] [place] [address]- 6263 Oct, [facility] [place] [facility] [address] [id number] [place] [address]- 1327 Oct, [facility] [place] [facility] [address] [id number] [place] [address]- 6232 Oct, [facility] [place] [facility] [address] [id number] [place] [address]- 3185 Oct, [facility] [place] [facility] [address] [id number] [place] [address]- 0122 Oct, [facility] [place] [facility] [address] [id number] [place] [address]- 2057 Oct, [facility] [place] [facility] [address] [id number] [place] [address]- 2392 Oct, [facility] [place] [facility] [address] [id number] [place] [address]- 2142 Oct, [facility] [place] [facility] [address] [id number] [place] [address]- 2579 Oct, [facility] [place] [facility] [address] [id number] [place] [address]- 5197 Sep, [facility] [place] [facility] [address] [id number] [place] [address]- 2837 Sep, [facility] [place] [facility] [address] [id number] [place] [address]- 1011 Sep, [facility] [place] [facility] [address] [id number] [place] [address]- 3865 Sep, [facility] [place] [facility] [address] [id number] [place] [address]- 5016 18 Sep, 2013 [facility] [place] [facility] [address] [id number] [place] [address]- 7530 18 Sep, 2013 [facility] [place] [facility] [address] [id number] [place] [address]- 1140 Sep, [facility] [place] [facility] [address] [id number] [place] [address]- 5815 Sep, [facility] [place] [facility] [address] [id number] [place] [address]- 3376 Sep, [facility] [place] [facility] [address] [id number] [place] [address]- 7222 Sep, [facility] [place] [facility] [address] [facility] [id number] [place] [address]- 3564 Sep, [facility] [place] [facility] [address] [id number] [place] [address]- 8353 Sep, [facility] [place] [facility] [address] [id number] [place] [address]- 9348 Sep, [facility] [place] [facility] [address] [id number] [place] [address]- 4646 Sep, [facility] [place] [facility] [address] [id number] [place] [address]- 6447 09 Sep, 2013 [facility] [place] [facility] [address] [facility] [id number] [place] [address]- 2821 Sep, [facility] [place] [facility] [address] [id number] [place] [address]- 2417 07 Sep, 2013 [facility] [place] [facility] [address] [id number] [place] [address]- 7464 Sep, [facility] [place] [facility] [address] [id number] [place] [address]- 1453 Sep, [facility] [place] [facility] [address] [id number] [place] [address]- 1661 Sep, [facility] [place] [facility] [address] [id number] [place] [address]- 1836 Sep, [facility] [place] [facility] [address] [id number] [place] [address]- 1337 Sep, [facility] [place] [facility] [address] [id number] [place] [address]- 9946 August, [facility] [place] [facility] [address] [id number] [place] [address]- 4536 August, [facility] [place] [facility] [address] [id number] [place] [address]- 2409 August, [facility] [place] [facility] [address] [id number] [place] [address]- 6172 August, [facility] [place] [facility] [address] [id number] [place] [address]- 0619 August, [facility] [place] [facility] [address] [id number] [place] [address]- 8507 August, [facility] [place] [facility] [address] [id number] [place] [address]- 9629 August, [facility] [place] [facility] [address] [id number] [place] 2405 August, [facility] [place] [facility] [address] [id number] [place] [address]- 2693 August, [facility] [place] [facility] [address] [id number] [place] [address]- 4039 August, [facility] [place] [facility] [address] [id number] [place] [address]- 0831 August, [facility] [place] [facility] [address] [id number] [place] [address]- 0703 Jul, [facility] [place] [facility] [address] [id number] [place] [address]- 6286 Jul, [facility] [place] [facility] [address] [id number] [place] [address]- 8664 Jul, [facility] [place] [facility] [address] [id number] [place] [address]- 9697 Jul, [facility] [place] [facility] [address] [id number] [place] [address]- 8158 Jul, [facility] [place] [facility] [address] [id number] [place] [address]- 9877 Jul, [facility] [place] [facility] [address] [id number] [place] [address]- 3761 Jul, [facility] [place] [facility] [address] [id number] [place] [address]- 7334 Jul, [facility] [place] [facility] [address] [id number] [place] [address]- 4307 Jul, [facility] [place] [facility] [address] [id number] [place] [address]- 4251 Jul, [facility] [place] [facility] [address] [id number] [place] [address]- 0454 16 Jul, 2013 [facility] [place] [facility] [address] [id number] [place] [address]- 9008 Jul, [facility] [place] [facility] [address] [id number] [place] [address]- 5804 Jul, [facility] [place] [facility] [address] [id number] [place] [address]- 5899 Jul, [facility] [place] [facility] [address] [id number] [place] [address] Jul, [facility] [place] [facility] [address] [id number] [place] [address] Jul, [facility] [place] [facility] [address] [id number] [place] [address] Jul, [facility] [place] [facility] [address] [id number] [place] [address] Jul, [facility] [place] [facility] [address] [id number] [place] [address] Jul, [facility] [place] [facility] [address] [id number] [place] [address] Jul, [facility] [place] [facility] [address] [id number] [place] [address] Jul, [facility] [place] [facility] [address] [id number] [place] [address] Jul, [facility] [place] [facility] [address] [id number] [place] [address] Jul, [facility] [place] [facility] [address] [id number] [place] [address] Jun, [facility] [place] [facility] [address] [id number] [place] [address]267 Jun, [facility] [place] [facility] [address] [id number] [place] [address] Jun, [facility] [place] [facility] [address] [id number] [place] [address] Jun, [facility] [place] [facility] [address] [id number] [place] [address] Jun, [facility] [place] [facility] [address] [id number] [place] [address] Jun, [facility] [place] [facility] [address] [id number] [place] [address] Jun, [facility] [place] [facility] [address] [id number] [place] [address] Jun, [facility] [place] [facility] [address] [id number] [place] [address] Jun, [facility] [place] [facility] [address] [id number] [place] [address] Jun, [facility] [place] [facility] [address] [id number] [place] [address] 270[address] Jun, [facility] [place] [facility] [address] [id number] [place] [address] Jun, [facility] [place] [facility] [address] [id number] [place] [address] May, [facility] [place] [facility] [address] [id number] [place] [address] May, [facility] [place] [facility] [address] [id number] [place] [address] Apr, [facility] [place] [facility] [address] [id number] [place] [address] Apr, [facility] [place] [facility] [address] [id number] [place] [address] Apr, [facility] [place] [facility] [address] [id number] [place] [address] Apr, [facility] [place] [facility] [address] [id number] [place] [address] Apr, [facility] [place] [facility] [address] [id number] [place] [address]- [address]247 Apr, [facility] [place] [facility] [address] [id number] [place] [address] Apr, [facility] [place] [facility] [address] [id number] [place] [address] Apr, [facility] [place] [facility] [address] [id number], [place] [address] Apr, [facility] [address] [id number] [place] [address]- [address]69 Apr, [facility] [place] [facility] [address] [id number] [place] [address]- 0440 Apr, [facility] [place] [facility] [address] [id number] [place] [address] Mar, [facility] [place] [facility] [address] [id number] [place] [address] Mar, [facility] [place] [facility] [address] [id number] [place] [address] Mar, [facility] [place] [facility] [address] [id number] [place] [address] Mar, [facility] [place] [facility] [address] [id number] [place] [address]- 4[address] Feb, [facility] [place] [facility] [address] [id number] [place] [address] Feb, [facility] [place] [facility] [address] [id number] [place] [address]- 2904 Feb, [facility] [place] [facility] [address] [id number] [place] [address] Feb, [facility] [place] [facility] [address] [id number], [place] [address] Feb, [facility] [place] [facility] [address] [id number], [place] [address] Feb, [facility] [place] [facility] [address] [id number], [place] [address] Feb, [facility] [place] [facility] [address] [id number], [place] [address] Feb, [facility] [place] [facility] [address] [id number] [place] [address]- 46[address] Feb, [facility] [place] [facility] [address] [id number] [place] [address]- 6033 Feb, [facility] [address] [id number] [place] [address]- [address] Feb, [facility] [place] [facility] [address] [id number] [place] [address]- 2814 Jan, [facility] [address] [id number] [place] [address]- 0[address] Jan, [facility] [place] [facility] [address] [id number] [place] [address]- 7971 Jan, [facility] [address] [id number] [place] [address]- 6055 Jan, [facility] [place] [facility] [address] [id number] [place] [address]- 3549 Jan, [facility] [place] [facility] [address] [id number] [place] [address] 8046 Jan, [facility] [address] [id number] [place] [address]- 1573 Jan, [facility] [place] [facility] [address] [id number] [place] [address]- 0666 Jan, [facility] [place] [facility] [address] [id number] [place] [address]- [address]677 30 Dec, 2012 [facility] [place] [facility] [address] [id number] [place] [address]- [address] 25 Sep, 2012 [facility] [place] [facility] [address] [id number] [place] [address]- 2543 18 Sep, 2012 [facility] [place] [facility] [address] [id number] [place] [address]- 0885 17 Sep, 2012 [facility] [place] [facility] [address] [id number] [place] [address]- [address]41 17 Sep, 2012 [facility] [place] [facility] [address] [id number] [place] [address] 16 Dec, 2012 [facility] [place] [facility] [address] [id number] [place] [address]- 5342 13 Dec, 2012 [facility] [place] [facility] [address] [id number] [place] [address]- 2146 11 Dec, 2012 [facility] [place] [facility] [address] [id number] [place] [address]- [address] 05 Dec, 2012 [facility] [place] [facility] [address] [id number] [place] [address]- 1378 04 Dec, 2012 [facility] [place] [facility] [address] [id number] [place] [address]- 6709 30 Nov, 2012 [facility] [place] [facility] [address] [id number] [place] [address]- 5847 Nov, [facility] [place] [facility] [address] [id number] [place] [address]- 9007 Nov, [facility] [place] [facility] [address] [id number] [place] [address]- 6515 Nov, [facility] [place] [facility] [address] [id number] [place] [address]- 8378 Nov, [facility] [place] [facility] [address] [id number] [place] [address]- 0996 Nov, [facility] [place] [facility] [address] [id number] [place] [address]- 4989 Nov, [facility] [place] [facility] [address] [id number] [place] [address]- 0292 Oct, [facility] [place] [facility] [address] [id number] [place] [address]- 7692 Oct, [facility] [place] [facility] [address] [id number] [place] [address] Oct, [facility] [place] [facility] [address] [id number] [place] [address] Oct, [facility] [place] [facility] [address] [id number] [place] [address] 15 Oct, 2012 [facility] [address] [id number] [place] [address] 2012 [facility] [place] [facility] [address] [id number] [place] [address] 28 Sep, 2012 [facility] [address] [id number] [place] [address] Sep, [facility] [place] [facility] [address] [id number] [place] [address] Sep, [facility] [address] [id number] [place] [address] 14 Sep, 2012 [facility] [address] [id number] [place] [address] Sep, [facility] [address] [id number] [place] [address] 37[address] Sep, [facility] [address] [id number] [place] [address] Sep, [facility] [address] [id number] [place] [address] Sep, [facility] [address] [id number] [place] [address] Sep, [facility] [address] [id number] [place] [address] August, [facility] [place] [facility] [address] [id number] [place] [address] 46[address] August, [facility] [place] [facility] [address] [id number] [place] [address] August, [facility] [place] [facility] [address] [id number] [place] [address]- 9565 August, [facility] [place] [facility] [address] [id number] [place] [address] August, [facility] [place] [facility] [address] [id number] [place] [address] August, [facility] [address] [id number] [place] [address] August, [facility] [address] [id number] [place] [address] August, [facility] [address] [id number] [place] [address] Jul, [facility] [address] [id number] [place] [address] Jul, [facility] [address] [place] [id number] Jul [facility] [address] [id number] [place] [address] Jun, [facility] [address] [id number] [place] [address]- 0946 Jun, [facility] [address] [id number] [place] [address] Jun, [facility] [address] [id number] [place] [address] 8786 Jun, [facility] [address] [facility] [id number] [place] [address] Jun, [facility] [address] [id number] [place] [address] 2546 Jun, [facility] [address] [id number] [place] [address] May, [facility] [address] [id number] [place] [address] May, [facility] [address] [id number] [place] [address]- [address] May, [facility] [address] [id number] [place] [address] May, [facility] [address] [id number] [place] [address] May, [facility] [address] [id number] [place] [address]- 3580 Apr, [facility] [address] [id number] [place] [address]- 26[address] Apr, [facility] [address] [id number] [place] [address]- [address] Apr, [facility] [address] [id number] [place] [address] 8816 Apr, [facility] [address] [id number] [place] [address]- 3944 Apr, [facility] [address] [id number] [place] [address]- 25[address] Apr, [facility] [address] [id number] [place] [address] 27[address] Mar, [facility] [address] [id number] [place] [address] 48[address] Mar, [facility] [address] [id number] [place] [address]- 3[address] Mar, [facility] [address] [id number] [place] [address] 67[address] Mar, [facility] [place] [facility] [address] [id number], [place] [address] Mar, [facility] [place] [facility] [address] [id number] [place] [address]- 4324 18 Mar, 2012 [facility] [place] [facility] [address] [id number] [place] [address]- 3318 18 Mar, 2012 [facility] [place] [facility] [address] [id number] [place] [address] 10 Mar, 2012 [facility] [place] [facility] [address] [id number] [place] [address]- 4[address] Mar, [facility] [place] [facility] [address] [id number] [place] [address]- 0012 Mar, [facility] [place] [facility] [address] [id number] [place] [address]- 68[address] Mar, [facility] [place] [facility] [address] [id number] [place] [address]303 Feb, [facility] [place] [facility] [address] [id number] [place] [address]- 9968 Feb, [facility] [place] [facility] [address] [id number] [place] [address]- 9225 Feb, [facility] [place] [facility] [address] [id number] [place] [address]- 5369 Feb, [facility] [place] [facility] [address] [id number] [place] [address]- 9512 Feb, [facility] [place] [facility] [address] [id number] [place] [address]- 69[address] Feb, [facility] [place] [facility] [address] [id number] [place] [address]- [address] Feb, [facility] [place] [facility] [address] [facility] [id number] [place] [address] 2930 Feb, [facility] [place] [facility] [address] [id number] [place] [address]- 8021 Feb, [facility] [place] [facility] [address] [id number], [place] [address] Feb, [facility] [place] [facility] [address] [id number] [place] [address]- 9369 Feb, [facility] [place] [facility] [address] [facility] [id number] [place] [address]- 4691 Jan, [facility] [place] [facility] [address] [facility] [id number] [place] [address]- 9680 Jan, [facility] [place] [facility] [address] [id number] [place] [address]- 8258 Jan, [facility] [place] [facility] [address] [id number] [place] [address]- 7386 Jan, [facility] [place] [facility] [address] [id number] [place] [address]- 7326 Jan, [facility] [place] [facility] [address] [id number] [place] [address]- 0156 Jan, [facility] [place] [facility] [address] [id number] [place] [address]- 6114 Jan, [facility] [place] [facility] [address] [id number] [place] [address]- 7892 24 Dec, 2011 [facility] [place] [facility] [address] [id number] [place] [address]- 4280 17 Dec, 2011 [facility] [place] [facility] [address] [id number] [place] [address]- 7779 13 Dec, 2011 [facility] [place] [facility] [address] [id number] [place] [address]- 9330 12 Dec, 2011 [facility] [place] [facility] [address] [id number] [place] [address]- 1040 Nov, [facility] [place] [facility] [address] [id number] [place] [address]- 4639 Nov, [facility] [place] [facility] [address] [id number] [place] [address]- 0974 17 Nov, 2011 [facility] [place] [facility] [address] [id number] [place] [address]- 6488 15 Nov, 2011 [facility] [place] [facility] [address] [id number] [place] [address]- 7873 14 Nov, 2011 [facility] [place] [facility] [address] [id number] [place] [address]- 5725 13 Nov, 2011 [facility] [place] [facility] [address] [id number] [place] [address]- 2088 Nov, [facility] [place] [facility] [address] [id number] [place] [address]- 8684 Nov, [facility] [place] [facility] [address] [id number] [place] [address]- 1772 Nov, [facility] [place] [facility] [address] [id number] [place] [address]- 5930 Nov, [facility] [place] [facility] [address] [id number] [place] [address]- 8352 Nov, [facility] [place] [facility] [address] [id number] [place] [address]- 7257 Nov, [facility] [place] [facility] [address] [id number] [place] [address]- 4598 Nov, [facility] [place] [facility] [address] [id number] [place] [address]- 1368 Oct, [facility] [place] [facility] [address] [id number] [place] [address]- 4065 Oct, [facility] [place] [facility] [address] [id number] [place] [address]- 1794 Oct, [facility] [place] [facility] [address] [id number] [place] [address]- 4636 Oct, [facility] [place] [facility] [address] [id number] [place] [address]- 2066 Oct, [facility] [place] [facility] [address] [id number] [place] [address]- 2553 Oct, [facility] [place] [facility] [address] [id number] [place] [address]- 2006 Oct, [facility] [place] [facility] [address] [id number] [place] [address]- 3754 Oct, [facility] [place] [facility] [address] [id number] [place] [address]- 4728 Oct, [facility] [place] [facility] [address] [id number] [place] [address]- 1047 Sep, [facility] [address] [id number] [place] [address]- 7262 Sep, [facility] [place] [facility] [address] [id number] [place] [address]- 5966 Sep, [facility] [address] [id number] [place] [address]- 6286 Sep, [facility] [place] [facility] [address] [id number] [place] [address]- 0679 Sep, [facility] [address] [id number] [place] [address]- 4653 Sep, [facility] [address] [id number] [place] [address]- 8276 Sep, [facility] [address] [id number] [place] [address]- 5865 Sep, [facility] [address] [id number] [place] [address]- 5871 August, [facility] [address] [id number] [place] [address]- 1665 August, [facility] [address] [id number] [place] [address]- 8248 August, [facility] [place] [facility] [address] [id number] [place] [address]- 7155 August, [facility] [place] [facility] [address] [id number] [place] [address]- 3111 August, [facility] [place] [facility] [address] [id number] [place] [address]- 3626 August, [facility] [place] [facility] [address] [id number] [place] [address]- 7025 August, [facility] [address] [id number] [place] [address]- 4614 August, [facility] [place] [address] [facility] [id number] [place] [address]- 9468 August, [facility] [place] [address] [facility] [id number], [place] [address]- 7537 August, [facility] [place] [address] [facility] [id number], [place] [address]- 8799 August, [facility] [place] [address] [facility] [id number][place] [address] August, [facility] [place] [address] [facility] [id number], [place] [address]- 7032 Oct, IMMUNIZATIONS No Known Immunizations SOCIAL HISTORY Never Assessed REASON FOR VISIT Lab (walk-in) PLAN OF CARE VITAL SIGNS MEDICATIONS Unknown Medications RESULTS Name Result Date Reference Range CBC 2016-11-20 WBC 9.4 3.4-10.8 RBC 3.80 3.77-5.28 Hemoglobin 11.4 11.1-15.9 Hematocrit 35.4 34.0-46.6 MCV 93 79-97 MCH 30.0 26.6-33.0 MCHC 32.2 31.5-35.7 RDW 16.3 12.3-15.4 Platelets 342 150-379 Neutrophils 77 Lymphs 17 Monocytes 4 Eos 1 Basos 0 Neutrophils (Absolute) 7.3 1.4-7.0 Lymphs (Absolute) 1.6 0.7-3.1 Monocytes(Absolute) 0.4 0.1-0.9 Eos (Absolute) 0.1 0.0-0.4 Baso (Absolute) 0.0 0.0-0.2 Immature Granulocytes 1 Immature Grans (Abs) 0.1 0.0-0.1 BMP 2016-11-20 Glucose, Serum 217 65-99 BUN 25 6-24 Creatinine, Serum 0.76 0.57-1.00 eGFR If NonAfricn Am 96 >59 eGFR If Africn Am 111 >59 BUN/Creatinine Ratio 33 9-23 Sodium, Serum 139 134-144 Potassium, Serum 5.4 3.5-5.2 Chloride, Serum 94 96-106 Carbon Dioxide, Total 31 18-29 Calcium, Serum 9.4 8.7-10.2 PROCEDURES Procedure Date Ordered Result Body Site LAB NOT BILL[facility] Nov 20, 2016 VENJOSH, ROUTINE* Nov 20, 2016 INSTRUCTIONS MEDICATIONS ADMINISTERED No Known Medications MEDICAL (GENERAL) HISTORY Type Description Date Medical History asthma Medical History acid reflux Medical History headache Medical History chronic pain-back and legs Medical History depression Medical History anxiety Medical History anger outbursts Medical History obesity Medical History Diabetic Surgical History abdominal surgery-to remove abscess 2007 Surgical History tonsillectomy Surgical History bladder surgery Hospitalization History [facility] for right groin pain 05/2011 Hospitalization History [facility] for wound on buttocks 08/2012 Hospitalization History [facility], hypoxia secondary to pneumonia 12/02-12/09 Hospitalization History Pneumonia, elevated CO2 on Bipap was in ICU 08/2013 Hospitalization History Hypoxia, Exacerbation COPD, Chest pain 09/05/15 Hospitalization History suicidal ideations-[place] 12/28 Hospitalization History hypoxia--[facility] 02/13/2016 Hospitalization History shortness of breath at june 2016 Hospitalization History Shortness of breath at august 2016 Hospitalization History SOB, chest pain at 12/2016
--- OUTSIDE RECORDS SUMMARY | 2017-11-24 17:58 | XMS REPORT ---
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 [facility] [id number] [place] [address] 69164- 9754 Sep, [facility] [address], [place] [address]- 8222 05 Sep, 2014 Diabetes mellitus without mention of complication, type II or unspecified type, not stated as uncontrolled 250.00 and Other chronic pain 338.29 [facility] [address] [facility] [id number], [place] [address]- 4319 Sep, Episodic mood disorder 296.90 [facility] [address], [place] [address]- 6353 Sep, [facility] [address], [place] [address]- 2933 Sep, Episodic mood disorder 296.90 [facility] [address], [place] [address]- 5357 Sep, [facility] [id number] [place] [address] 69515- 1159 August, [facility] [address], [place] [address]- 4805 August, [facility] [id number] [place] [address] 15529- 0450 August, Episodic mood disorder 296.90 [facility] [address], [place] [address]- 0693 August, [facility] [id number] [place] [address] 94855- 7264 August, Unspecified episodic mood disorder 296.90 [facility] [address], [place] [address]- 4202 August, Vomiting 787.03 [facility] [address], [place] [address]- 7932 August, [facility] [address], [place] [address]- 1711 August, [facility] [address], [place] [address]- 3870 August, [facility] [address], [place] [address]- 5337 August, [facility] [address], [place] [address]- 2546 August, [facility] [place] [facility] [address] [id number] [place] [address]- 8750 28 Jul, 2014 [facility] [place] [facility] [address] [id number] [place] [address]- 1066 Jul, [facility] [place] [facility] [address] [id number] [place] [address]- 9124 Jul, [facility] [place] [facility] [address] [id number] [place] [address]- 9636 30 Jun, 2014 [facility] [place] [facility] [address] [id number] [place] [address]- 7617 Jun, [facility] [place] [facility] [address] [id number] [place] [address]- 2135 Jun, [facility] [place] [facility] [address] [id number] [place] [address]- 2647 Jun, [facility] [place] [facility] [address] [id number] [place] [address]- 7888 Jun, [facility] [place] [facility] [address] [id number] [place] [address]- 7205 Jun, [facility] [place] [facility] [address] [id number] [place] [address]- 9954 Jun, [facility] [place] [facility] [address] [id number] [place] [address]- 7851 Jun, [facility] [place] [facility] [address] [id number] [place] [address]- 0604 Jun, [facility] [place] [facility] [address] [id number] [place] [address]- 9355 Jun, [facility] [place] [facility] [address] [id number] [place] [address]- 4058 Jun, [facility] [place] [facility] [address] [id number] [place] [address]- 2510 Jun, [facility] [place] [facility] [address] [id number] [place] [address]- 0249 26 Jun, 2014 [facility] [place] [facility] [address] [id number] [place] [address]- 2328 26 Jun, 2014 [facility] [place] [facility] [address] [id number] [place] [address]- 6323 24 Jun, 2014 [facility] [place] [facility] [address] [id number] [place] [address]- 0053 Jun, [facility] [place] [facility] [address] [id number] [place] [address]- 3667 Jun, [facility] [place] [facility] [address] [id number] [place] [address]- 7868 Jun, [facility] [place] [facility] [address] [id number] [place] [address]- 9149 Jun, [facility] [place] [facility] [address] [id number] [place] [address]- 3257 Jun, [facility] [place] [facility] [address] [id number] [place] [address]- 3428 Jun, [facility] [place] [facility] [address] [id number] [place] [address]- 3590 Jun, [facility] [place] [facility] [address] [id number] [place] [address]- 1199 20 Jun, 2014 [facility] [place] [facility] [address] [id number] [place] [address]- 2426 20 Jun, 2014 [facility] [place] [facility] [address] [id number] [place] [address]- 3018 20 Jun, 2014 [facility] [place] [facility] [address] [id number] [place] [address]- 6965 19 Jun, 2014 [facility] [place] [facility] [address] [id number] [place] [address]- 2670 19 Jun, 2014 [facility] [place] [facility] [address] [id number] [place] 0310 18 Jun, 2014 [facility] [place] [facility] [address] [id number] [place] [address]- 8926 18 Jun, 2014 [facility] [place] [facility] [address] [id number] [place] [address]- 8669 17 Jun, 2014 [facility] [place] [facility] [address] [id number] [place] [address]- 2324 17 Jun, 2014 [facility] [place] [facility] [address] [id number] [place] [address]- 7386 16 Jun, 2014 [facility] [place] [facility] [address] [id number] [place] [address]- 4132 16 Jun, 2014 [facility] [place] [facility] [address] [id number] [place] [address]- 5850 16 Jun, 2014 [facility] [place] [facility] [address] [id number] [place] [address]- 5230 16 Jun, 2014 [facility] [place] [facility] [address] [id number] [place] [address]- 7183 16 Jun, 2014 [facility] [place] [facility] [address] [id number] [place] [address]- 8963 16 Jun, 2014 [facility] [place] [facility] [address] [id number] [place] [address]- 1016 13 Jun, 2014 [facility] [place] [facility] [address] [id number] [place] [address]- 0146 13 Jun, 2014 [facility] [place] [facility] [address] [id number] [place] [address]- 1318 12 Jun, 2014 [facility] [place] [facility] [address] [id number] [place] [address]- 8779 12 Jun, 2014 [facility] [place] [facility] [address] [id number] [place] [address]- 8297 09 Jun, 2014 [facility] [place] [facility] [address] [id number] [place] [address]- 4327 09 Jun, 2014 [facility] [place] [facility] [address] [id number], [place] [address]- 9007 Jun, [facility] [place] [facility] [address] [id number] [place] [address]- 9189 Jun, [facility] [place] [facility] [address] [id number] [place] [address]- 4070 Jun, [facility] [place] [facility] [address] [facility] [id number] [place] [address]- 0902 Jun, [facility] [place] [facility] [address] [id number] [place] [address]- 7237 Jun, [facility] [place] [facility] [address] [id number] [place] [address]- 1188 Jun, [facility] [place] [facility] [address] [id number] [place] [address]- 8540 Jun, [facility] [place] [facility] [address] [facility] [id number] [place] [address]- 6473 Jun, [facility] [place] [facility] [address] [facility] [id number] [place] [address]- 5911 Jun, [facility] [place] [facility] [address] [id number] [place] [address]- 6186 Jun, [facility] [place] [facility] [address] [facility] [id number] [place] [address]- 4326 Jun, [facility] [place] [facility] [address] [id number] [place] [address]- 3618 Jun, [facility] [place] [facility] [address] [facility] [id number], [place] [address]- 3450 Jun, [facility] [place] [facility] [address] [id number] [place] [address]- 1979 Jun, [facility] [place] [facility] [address] [facility] [id number] [place] [address]- 6486 May, [facility] [place] [facility] [address] [facility] [id number] 1359 May, [facility] [place] [facility] [address] [id number] [place] [address]- 6785 May, 2014 [facility] [place] [facility] [address] [id number] [place] [address]- 8856 May, 2014 [facility] [place] [facility] [address] [id number] [place] [address]- 4386 May, 2014 [facility] [place] [facility] [address] [id number] [place] [address]- 254 May, 2014 [facility] [place] [facility] [address] [id number] [place] [address]- 8364 May, 2014 [facility] [place] [facility] [address] [id number] [place] [address]- 1393 May, 2014 [facility] [place] [facility] [id number] [address]- 1537 May, 2014 [facility] [place] [facility] [address] [facility] [id number] [place] [address]- 3336 May, 2014 [facility] [place] [facility] [address] [facility] [id number] [place] [address]- 4686 18 May, 2014 [facility] [place] [facility] [address] [facility] [id number] [place] [address]- 2350 18 May, 2014 [facility] [place] [facility] [address] [facility] [id number] [place] [address]- 5188 13 May, 2014 [facility] [place] [facility] [address] [facility] [id number] [place] [address]- 254 13 May, 2014 [facility] [place] [facility] [address] [facility] [id number] [place] [address] May, 2014 [facility] [place] [facility] [address] [facility] [id number] [place] [address] May, 2014 [facility] [place] [facility] [address] [facility] [id number] [place] [address] May, 2014 [facility] [place] [facility] [address] [facility] [id number] [place] [address] May, 2014 [facility] [place] [facility] [address] [id number] [place] [address] May, 2014 [facility] [place] [facility] [address] [facility] [id number] [place] [address] May, 2014 [facility] [place] [facility] [address] [id number] [place] [address] May, 2014 [facility] [place] [facility] [address] [id number] [place] [address] May, 2014 [facility] [place] [facility] [address] [id number] [place] [address] May, 2014 [facility] [place] [facility] [address] [facility] [id number] [place] [address] May, 2014 [facility] [place] [facility] [address] [facility] [id number], [place] [address] May, 2014 [facility] [place] [facility] [address] [facility] [id number] [place] [address]- [address] May, 2014 [facility] [place] [facility] [address] [facility] [id number] [place] [address]843 May, [facility] [place] [facility] [address] [facility] [id number], [place] [address] Apr, [facility] [place] [facility] [address] [facility] [id number], [place] [address] Apr, [facility] [place] [facility] [address] [id number], [place] [address] Apr, [facility] [place] [facility] [address] [facility] [id number], [place] [address] Apr, [facility] [place] [facility] [address] [facility] [id number], [place] [address] Apr, [facility] [place] [facility] [address] [facility] [id number], [place] [address] Apr, [facility] [place] [facility] [address] [id number] [place] [address]697 Apr, [facility] [place] [facility] [address] [id number] [place] [address] Apr, [facility] [place] [facility] [address] [id number] [place] [address] Apr, [facility] [place] [facility] [address] [id number] [place] [address] 1009 Apr, [facility] [place] [facility] [address] [id number] [place] [address] Apr, [facility] [place] [facility] [address] [id number] [place] [address]- [address] Apr, [facility] [place] [facility] [address] [id number] [place] [address] Apr, [facility] [place] [facility] [address] [id number] [place] [address] Apr, [facility] [place] [facility] [address] [id number] [place] [address]- [address] Apr, [facility] [place] [facility] [address] [id number] [place] [address] Apr, [facility] [place] [facility] [address] [id number], [place] [address] Apr, [facility] [place] [facility] [address] [id number], [place] [address] Apr, [facility] [place] [facility] [address] [id number] [place] [address]- [address] Apr, [facility] [place] [facility] [address] [id number] [place] [address]- [address] Apr, [facility] [place] [facility] [address] [id number] [place] [address] Mar, [facility] [place] [facility] [address] [id number] [place] [address] Mar, [facility] [place] [facility] [address] [id number] [place] [address] Mar, [facility] [place] [facility] [address] [id number] [place] [address]- [address] Mar, [facility] [place] [facility] [address] [id number] [place] [address]856 Mar, [facility] [place] [facility] [address] [id number] [place] [address]- [address] Mar, [facility] [place] [facility] [address] [id number] [place] [address]- [address] Mar, [facility] [place] [facility] [address] [id number] [place] [address]- [address] Mar, [facility] [place] [facility] [address] [id number] [place] [address] 15 Mar, 2014 [facility] [place] [facility] [address] [id number] [place] [address]697 15 Mar, 2014 [facility] [place] [facility] [address] [id number] [place] [address]- [address] 15 Mar, 2014 [facility] [place] [facility] [address] [id number] [place] [address] 15 Mar, 2014 [facility] [place] [facility] [address] [id number] [place] [address]- [address]284 Mar, [facility] [place] [facility] [address] [id number] [place] [address] Mar, [facility] [place] [facility] [address] [id number] [place] [address]- [address]36 Mar, [facility] [place] [facility] [address] [id number] [place] [address]- 1836 Mar, [facility] [place] [facility] [address] [id number] [place] [address] Feb, [facility] [place] [facility] [address] [id number] [place] [address]- [address]953 Feb, [facility] [place] [facility] [address] [id number] [place] [address]240 Feb, [facility] [place] [facility] [address] [id number] [place] [address]- 18[address] Feb, [facility] [place] [facility] [address] [id number] [place] [address]- [address] Feb, [facility] [place] [facility] [address] [id number] [place] [address] Feb, [facility] [place] [facility] [address] [id number] [place] [address] 6[address] Feb, [facility] [place] [facility] [address] [id number] [place] [address] 18 Feb, 2014 [facility] [place] [facility] [address] [id number] [place] [address]- 4531 18 Feb, 2014 [facility] [place] [facility] [address] [id number] [place] [address] 17 Feb, 2014 [facility] [place] [facility] [address] [id number] [place] [address]- 5289 17 Feb, 2014 [facility] [place] [facility] [address] [id number] [place] [address] 3464 17 Feb, 2014 [facility] [place] [facility] [address] [id number], [place] [address] 9784 17 Feb, 2014 [facility] [place] [facility] [address] [id number] [place] [address]- 4757 14 Feb, 2014 [facility] [place] [facility] [address] [id number] [place] [address]- 4847 14 Feb, 2014 [facility] [place] [facility] [address] [id number] [place] [address]- 6742 14 Feb, 2014 [facility] [place] [facility] [address] [id number] [place] [address]- 9047 14 Feb, 2014 [facility] [place] [facility] [address] [id number] [place] [address]- 7812 10 Feb, 2014 [facility] [place] [facility] [address] [id number] [place] [address]- 9278 10 Feb, 2014 [facility] [place] [facility] [address] [id number] [place] [address]- 8104 Feb, [facility] [place] [facility] [address] [id number] [place] [address]- 0418 Feb, [facility] [place] [facility] [address] [id number] [place] [address]- 1688 Jan, [facility] [place] [facility] [address] [id number] [place] [address]- 3642 Jan, [facility] [place] [facility] [address] [id number] [place] [address]- 2034 Jan, [facility] [place] [facility] [address] [id number] [place] [address]- 2154 Jan, [facility] [place] [facility] [address] [id number] [place] [address]- 5114 Jan, [facility] [place] [facility] [address] [id number] [place] [address]- 0062 Jan, [facility] [place] [facility] [address] [id number] [place] [address]- 5742 Jan, [facility] [place] [facility] [address] [id number] [place] [address]- 8850 Jan, [facility] [place] [facility] [address] [id number] [place] [address]- 8153 Jan, [facility] [place] [facility] [address] [id number] [place] [address]- 3873 Jan, [facility] [place] [facility] [address] [id number] [place] [address]- 8360 Jan, [facility] [place] [facility] [address] [id number] [place] [address]- 3742 17 Jan, 2013 [facility] [place] [facility] [address] [id number] [place] [address]- 7091 17 Jan, 2013 [facility] [place] [facility] [address] [id number] [place] [address]- 3117 17 Jan, 2014 [facility] [place] [facility] [address] [id number] [place] [address]- 7317 15 Jan, 2014 [facility] [place] [facility] [address] [id number] [place] [address]- 6285 15 Jan, 2014 [facility] [place] [facility] [address] [id number] [place] [address]- 2595 14 Jan, 2014 [facility] [place] [facility] [address] [id number] [place] [address]- 9912 14 Jan, 2014 [facility] [place] [facility] [address] [id number] [place] [address]- 2532 13 Jan, 2014 [facility] [place] [facility] [address] [id number] [place] [address]- 3029 13 Jan, 2014 [facility] [place] [facility] [address] [id number] [place] [address]- 0348 13 Jan, 2014 [facility] [place] [facility] [address] [id number] [place] [address]- 2073 13 Jan, 2014 [facility] [place] [facility] [address] [id number] [place] [address]- 7735 10 Jan, 2014 [facility] [place] [facility] [address] [id number] [place] [address]- 3325 02 Jan, 2014 [facility] [place] [facility] [address] [id number] [place] [address]- 8021 02 Jan, 2014 [facility] [place] [facility] [address] [id number] [place] [address]- 4755 25 Dec, 2013 [facility] [place] [facility] [address] [id number] [place] [address]- 1636 25 Sep, 2013 [facility] [place] [facility] [address] [id number] [place] [address]- 0514 23 Sep, 2013 [facility] [place] [facility] [address] [id number] [place] [address]- 0716 23 Sep, 2013 [facility] [place] [facility] [address] [id number] [place] [address] 2546 19 Sep, 2013 [facility] [place] [facility] [address] [id number] [place] [address]- 2543 19 Sep, 2013 [facility] [place] [facility] [address] [id number] [place] [address]- 0674 17 Sep, 2013 [facility] [place] [facility] [address] [id number] [place] [address]- 5033 17 Sep, 2013 [facility] [place] [facility] [address] [id number] [place] [address]- 1828 09 Sep, 2013 [facility] [place] [facility] [address] [id number] [place] [address]- 0883 09 Sep, 2013 [facility] [place] [facility] [address] [id number] [place] [address]- 5271 08 Sep, 2013 [facility] [place] [facility] [address] [id number] [place] [address]- 8598 08 Sep, 2013 [facility] [place] [facility] [address] [id number], [place] [address]- 7029 04 Sep, 2013 [facility] [place] [facility] [address] [id number], [place] [address]- 2540 04 Sep, 2013 [facility] [place] [facility] [address] [id number] [place] [address]- 254 02 Sep, 2013 [facility] [place] [facility] [address] [id number] [place] [address]- 0795 02 Sep, 2013 [facility] [place] [facility] [address] [id number] [place] [address]- 8243 02 Sep, 2013 [facility] [place] [facility] [address] [id number] [place] [address]- 1785 Dec, [facility] [place] [facility] [address] [id number] [place] [address]- 8451 Nov, [facility] [place] [facility] [address] [id number] [place] [address]- 4923 Nov, [facility] [place] [facility] [address] [id number] [place] [address]- 9369 Nov, [facility] [place] [facility] [address] [id number] [place] [address]- 8920 Nov, [facility] [place] [facility] [address] [id number] [place] [address]- 7909 Nov, [facility] [place] [facility] [address] [id number] [place] [address]- 7584 Nov, [facility] [place] [facility] [address] [id number] [place] [address]- 8410 Nov, [facility] [place] [facility] [address] [id number] [place] [address]- 5505 Nov, [facility] [place] [facility] [address] [id number] [place] [address]- 2102 Nov, [facility] [place] [facility] [address] [id number] [place] [address]- 0777 Nov, [facility] [place] [facility] [address] [id number] [place] [address]- 9609 Nov, [facility] [place] [facility] [address] [id number] [place] [address]- 4289 Nov, [facility] [place] [facility] [address] [id number] [place] [address]- 3576 Oct, [facility] [place] [facility] [address] [id number] [place] [address]- 2718 Oct, [facility] [place] [facility] [address] [id number] [place] [address]- 1424 Oct, [facility] [place] [facility] [address] [id number] [place] [address]- 8744 Oct, [facility] [place] [facility] [address] [id number] [place] [address]- 5474 Oct, [facility] [place] [facility] [address] [id number] [place] [address]- 6027 Oct, [facility] [place] [facility] [address] [id number] [place] [address]- 6943 Oct, [facility] [place] [facility] [address] [id number] [place] [address]- 8373 Oct, [facility] [place] [facility] [address] [id number] [place] [address]- 9296 Oct, [facility] [place] [facility] [address] [id number] [place] [address]- 3024 Oct, [facility] [place] [facility] [address] [id number] [place] [address]- 3781 Oct, [facility] [place] [facility] [address] [id number] [place] [address]- 4850 Oct, [facility] [place] [facility] [address] [id number] [place] [address]- 6975 Oct, [facility] [place] [facility] [address] [id number] [place] [address]- 9943 Oct, [facility] [place] [facility] [address] [id number] [place] [address]- 6419 Oct, [facility] [place] [facility] [address] [id number] [place] [address]- 6583 Oct, [facility] [place] [facility] [address] [id number] [place] [address]- 5792 Oct, [facility] [place] [facility] [address] [id number] [place] [address]- 6229 Sep, [facility] [place] [facility] [address] [id number] [place] [address]- 6019 Sep, [facility] [place] [facility] [address] [id number] [place] [address]- 9352 Sep, [facility] [place] [facility] [address] [id number] [place] [address]- 4926 20 Sep, 2013 [facility] [place] [facility] [address] [id number] [place] [address]- 9469 18 Sep, 2013 [facility] [place] [facility] [address] [id number] [place] [address]- 8782 18 Sep, 2013 [facility] [place] [facility] [address] [id number] [place] [address]- 9256 17 Sep, 2013 [facility] [place] [facility] [address] [id number] [place] [address]- 4883 17 Sep, 2013 [facility] [place] [facility] [address] [facility] [id number] [place] [address]- 0369 Sep, [facility] [place] [facility] [address] [id number] [place] [address]- 2956 Sep, [facility] [place] [facility] [address] [id number] [place] [address]- 6831 Sep, [facility] [place] [facility] [address] [facility] [id number] [place] [address]- 7364 Sep, [facility] [place] [facility] [address] [id number] [place] [address]- 3829 Sep, [facility] [place] [facility] [address] [id number] [place] [address]- 6346 Sep, [facility] [place] [facility] [address] [id number] [place] [address]- 1056 09 Sep, 2013 [facility] [place] [facility] [address] [id number] [place] [address]- 6608 09 Sep, 2013 [facility] [place] [facility] [address] [facility] [id number] [place] [address]- 3902 07 Sep, 2013 [facility] [place] [facility] [address] [id number] [place] [address]- 9439 Sep, [facility] [place] [facility] [address] [id number] [place] [address]- 2838 Sep, [facility] [place] [facility] [address] [id number] [place] [address]- 6997 Sep, [facility] [place] [facility] [address] [id number] [place] [address]- 4798 Sep, [facility] [place] [facility] [address] [id number] [place] [address]- 9159 Sep, [facility] [place] [facility] [address] [id number] [place] [address]- 9700 August, [facility] [place] [facility] [address] [id number] [place] [address]- 1092 August, [facility] [place] [facility] [address] [id number] [place] [address]- 8815 August, [facility] [place] [facility] [address] [id number] [place] [address]- 7826 August, [facility] [place] [facility] [address] [id number] [place] [address]- 4255 August, [facility] [place] [facility] [address] [id number] [place] [address]- 1493 August, [facility] [place] [facility] [address] [id number] [place] [address]- 7892 August, [facility] [place] [facility] [address] [id number] [place] [address]- 5607 August, [facility] [place] [facility] [address] [id number] [place]17 August, [facility] [place] [facility] [address] [id number] [place] [address]- 6393 August, [facility] [place] [facility] [address] [id number] [place] [address]- 8077 August, [facility] [place] [facility] [address] [id number] [place] [address]- 3904 Jul, [facility] [place] [facility] [address] [id number] [place] [address]- 0385 Jul, [facility] [place] [facility] [address] [id number] [place] [address]- 8427 Jul, [facility] [place] [facility] [address] [id number] [place] [address]- 1684 Jul, [facility] [place] [facility] [address] [id number] [place] [address]- 5522 Jul, [facility] [place] [facility] [address] [id number] [place] [address]- 0998 Jul, [facility] [place] [facility] [address] [id number] [place] [address]- 1568 Jul, [facility] [place] [facility] [address] [id number] [place] [address]- 2743 Jul, [facility] [place] [facility] [address] [id number] [place] [address]- 5428 Jul, [facility] [place] [facility] [address] [id number] [place] [address]- 2965 Jul, [facility] [place] [facility] [address] [id number] [place] [address]- 6803 16 Jul, 2013 [facility] [place] [facility] [address] [id number] [place] [address]- 1911 Jul, [facility] [place] [facility] [address] [id number] [place] [address]- 5023 Jul, [facility] [place] [facility] [address] [id number] [place] [address]- 0060 Jul, [facility] [place] [facility] [address] [id number] [place] [address]- 0833 Jul, [facility] [place] [facility] [address] [id number] [place] [address]- 8136 Jul, [facility] [place] [facility] [address] [id number] [place] [address]- 7440 Jul, [facility] [place] [facility] [address] [id number] [place] [address]- 3997 Jul, [facility] [place] [facility] [address] [id number] [place] [address]- 2104 Jul, [facility] [place] [facility] [address] [id number] [place] [address]- 6719 Jul, [facility] [place] [facility] [address] [id number] [place] [address]- 8336 Jul, [facility] [place] [facility] [address] [id number] [place] [address]- 5156 Jul, [facility] [place] [facility] [address] [id number] [place] [address]- 5321 Jul, [facility] [place] [facility] [address] [id number] [place] [address]- 8603 Jun, [facility] [place] [facility] [address] [id number] [place] [address]- 5082 Jun, [facility] [place] [facility] [address] [id number] [place] [address]- 0065 Jun, [facility] [place] [facility] [address] [id number] [place] [address]- 6056 Jun, [facility] [place] [facility] [address] [id number] [place] [address]- 4480 Jun, [facility] [place] [facility] [address] [id number] [place] [address]- 8750 Jun, [facility] [place] [facility] [address] [id number] [place] [address]- 0580 Jun, [facility] [place] [facility] [address] [id number] [place] [address]- 2742 Jun, [facility] [place] [facility] [address] [id number] [place] [address]- 4195 18 Jun, 2013 [facility] [place] [facility] [address] [id number] [place] [address]- 9635 18 Jun, 2013 [facility] [place] [facility] [address] [id number] [place] [address]- 4172 17 Jun, 2013 [facility] [place] [facility] [address] [id number] [place] [address]- 8607 17 Jun, 2013 [facility] [place] [facility] [address] [id number] [place] [address]- 4553 May, [facility] [place] [facility] [address] [id number] [place] [address]- 9854 May, [facility] [place] [facility] [address] [id number] [place] [address]- 3529 Apr, [facility] [place] [facility] [address] [id number] [place] [address]- 4607 Apr, [facility] [place] [facility] [address] [id number] [place] [address]- 5542 Apr, [facility] [place] [facility] [address] [id number] [place] [address]- 2107 Apr, [facility] [place] [facility] [address] [id number] [place] [address]- 6701 Apr, [facility] [place] [facility] [address] [id number] [place] [address]- 9630 Apr, [facility] [place] [facility] [address] [id number] [place] [address]- 1070 Apr, [facility] [place] [facility] [address] [id number] [place] [address]- 6496 Apr, [facility] [place] [facility] [address] [id number] [place] [address]- 7891 14 Apr, 2013 [facility] [place] [facility] [address] [id number], [place] [address]- 8910 Apr, [facility] [address] [id number] [place] [address]- 9964 Apr, [facility] [place] [facility] [address] [id number] [place] [address]- 7028 Mar, [facility] [place] [facility] [address] [id number] [place] [address]- 6767 Mar, [facility] [place] [facility] [address] [id number] [place] [address]- 6069 Mar, [facility] [place] [facility] [address] [id number] [place] [address]- 6180 Mar, [facility] [place] [facility] [address] [id number] [place] [address]- 7770 Feb, [facility] [place] [facility] [address] [id number] [place] [address]- 6690 Feb, [facility] [place] [facility] [address] [id number] [place] [address]- 0414 Feb, [facility] [place] [facility] [address] [id number] [place] [address]- 8246 Feb, [facility] [place] [facility] [address] [id number] [place] [address]- 9682 Feb, [facility] [place] [facility] [address] [id number], [place] [address]- 3191 Feb, [facility] [place] [facility] [address] [id number], [place] [address]- 9486 Feb, [facility] [place] [facility] [address] [id number], [place] [address]- 3825 Feb, [facility] [place] [facility] [address] [id number], [place] [address]- 7851 Feb, [facility] [place] [facility] [address] [id number] [place] [address]- 8897 Feb, [facility] [place] [facility] [address] [id number] [place] [address]- 2617 02 Feb, 2013 [facility] [place] [facility] [address] [id number] [place] [address]- 3219 Jan, 2012 [facility] [place] [facility] [address] [id number] [place] [address]- 3347 Jan, [facility] [place] [facility] [address] [id number] [place] [address]- 8930 Jan, 2012 [facility] [place] [facility] [address] [id number] [place] [address]- 3389 Jan, 2012 [facility] [place] [facility] [address] [id number] [place] [address]- 0183 Jan, [facility] [place] [facility] [address] [id number] [place] [address]- 5711 Jan, [facility] [place] [facility] [address] [id number] [place] [address]- 5200 Jan, [facility] [address] [id number] [place] [address] 02 Jan, 2013 [facility] [place] [facility] [address] [id number] [place] [address] 30 Sep, 2012 [facility] [place] [facility] [address] [id number] [place] [address] 25 Sep, 2012 [facility] [place] [facility] [address] [id number] [place] [address] 18 Sep, 2012 [facility] [place] [facility] [address] [id number] [place] [address] 17 Sep, 2012 [facility] [place] [facility] [address] [id number] [place] [address]43 17 Sep, 2012 [facility] [place] [facility] [address] [id number] [place] [address] 16 Sep, 2012 [facility] [place] [facility] [address] [id number] [place] [address] 13 Dec, 2012 [facility] [place] [facility] [address] [id number] [place] [address]31 11 Dec, 2012 [facility] [place] [facility] [address] [id number] [place] [address] 05 Dec, 2012 [facility] [place] [facility] [address] [id number] [place] [address] 04 Dec, 2012 [facility] [place] [facility] [address] [id number] [place] [address] 30 Nov, 2012 [facility] [place] [facility] [address] [id number] [place] [address] Nov, [facility] [place] [facility] [address] [id number] [place] [address] Nov, [facility] [place] [facility] [address] [id number] [place] [address] Nov, [facility] [place] [facility] [address] [id number] [place] [address] Nov, [facility] [place] [facility] [address] [id number] [place] [address] 49[address] Nov, [facility] [place] [facility] [address] [id number] [place] [address] 98[address] Nov, [facility] [place] [facility] [address] [id number] [place] [address] Oct, [facility] [place] [facility] [address] [id number] [place] [address] Oct, [facility] [place] [facility] [address] [id number] [place] [address] Oct, [facility] [place] [facility] [address] [id number] [place] [address] 7069 Oct, [facility] [place] [facility] [address] [id number] [place] [address] 9665 15 Oct, 2012 [facility] [place] [facility] [address] [id number] [place] [address] Oct, [facility] [address] [id number] [place] [address] 28 Sep, 2012 [facility] [place] [facility] [address] [id number] [place] [address] 116[address] Sep, [facility] [address] [id number] [place] [address] Sep, [facility] [place] [facility] [address] [id number] [place] [address]- 4733 14 Sep, 2012 [facility] [address] [id number] [place] [address] 13 Sep, 2012 [facility] [address] [id number] [place] [address] Sep, [facility] [address] [id number] [place] [address] 77[address] Sep, [facility] [address] [id number] [place] [address]- [address] Sep, [facility] [address] [id number] [place] [address] 9[address] Sep, [facility] [address] [id number] [place] [address] August, [facility] [address] [id number] [place] [address] August, [facility] [place] [facility] [address] [id number] [place] [address] August, [facility] [place] [facility] [address] [id number] [place] [address] August, [facility] [place] [facility] [address] [id number] [place] [address] August, [facility] [place] [facility] [address] [id number] [place] [address] August, [facility] [place] [facility] [address] [id number] [place] [address] 240[address] August, [facility] [address] [id number] [place] [address] August, [facility] [address] [id number] [place] [address] Jul, [facility] [address] [id number] [place] [address] Jul, [facility] [address] [place] [id number] [facility] [address] [id number] [place] [address]28 Jun, [facility] [address] [id number] [place] [address] Jun, [facility] [address] [id number] [place] [address] 74[address] Jun, [facility] [address] [id number] [place] [address]- 74[address] Jun, [facility] [address] [id number] [place] [address]40 Jun, [facility] [address] [facility] [id number] [place] [address] Jun, [facility] [address] [id number] [place] [address] May, [facility] [address] [id number] [place] [address] 2546 May, [facility] [address] [id number] [place] [address]- 2546 May, [facility] [address] [id number] [place] [address]- 2546 May, [facility] [address] [id number] [place] [address] 8414 May, [facility] [address] [id number] [place] [address] 58[address] Apr, [facility] [place] [facility] [address] [id number] [place] [address]- 1225 Apr, [facility] [place] [facility] [address] [id number] [place] [address]- 0748 Apr, [facility] [place] [facility] [address] [id number] [place] [address]- 2303 Apr, [facility] [address] [id number] [place] [address]- 4571 Apr, [facility] [address] [id number] [place] [address]- 8581 Apr, [facility] [address] [id number] [place] [address]34 Mar, [facility] [place] [facility] [address] [id number] [place] [address]- [address]93 Mar, [facility] [place] [facility] [address] [id number] [place] [address]237 Mar, [facility] [place] [facility] [address] [id number] [place] [address]- 3536 Mar, [facility] [place] [facility] [address] [id number] [place] [address]- 7419 Mar, [facility] [place] [facility] [address] [id number], [place] [address]- 4499 18 Mar, 2012 [facility] [place] [facility] [address] [id number] [place] [address]- 4785 18 Mar, 2012 [facility] [place] [facility] [address] [id number] [place] [address]- 4366 Mar, [facility] [place] [facility] [address] [id number] [place] [address] 10 Mar, 2012 [facility] [place] [facility] [address] [id number] [place] [address]- 7962 05 Mar, 2012 [facility] [place] [facility] [address] [id number] [place] [address]- 2624 05 Mar, 2012 [facility] [place] [facility] [address] [id number] [place] [address]- 68[address] Feb, [facility] [place] [facility] [address] [id number] [place] [address]- 2511 Feb, [facility] [place] [facility] [address] [address] [id number] [place] [address] Feb, [facility] [place] [facility] [address] [id number] [place] [address] Feb, [facility] [place] [facility] [address] [id number] [place] [address] Feb, [facility] [place] [facility] [address] [id number] [place] [address] Feb, [facility] [place] [facility] [address] [id number] [place] [address] Feb, [facility] [place] [facility] [address] [id number] [place] [address] Feb, [facility] [place] [facility] [address] [facility] [id number] [place] [address] Feb, [facility] [place] [facility] [address] [id number] [place] [address] Feb, [facility] [place] [facility] [address] [id number], [place] [address] Feb, [facility] [place] [facility] [address] [id number] [place] [address] Jan, [facility] [place] [facility] [address] [facility] [id number] [place] [address] Jan, [facility] [place] [facility] [address] [facility] [id number], [place] [address] Jan, [facility] [place] [facility] [address] [id number] [place] [address] Jan, [facility] [place] [facility] [address] [id number] [place] [address] Jan, [facility] [place] [facility] [address] [id number] [place] [address] Jan, [facility] [place] [facility] [address] [id number] [place] [address] 17[address] Jan, [facility] [place] [facility] [address] [id number] [place] [address] 24 Dec, 2011 [facility] [place] [facility] [address] [id number] [place] [address] 17 Dec, 2011 [facility] [place] [facility] [address] [id number] [place] [address]- 3567 13 Dec, 2011 [facility] [place] [facility] [address] [id number] [place] [address]12 12 Dec, 2011 [facility] [place] [facility] [address] [id number] [place] [address] 279[address] Nov, [facility] [place] [facility] [address] [id number] [place] [address] Nov, [facility] [place] [facility] [address] [id number] [place] [address]- [address] 17 Nov, 2011 [facility] [place] [facility] [address] [id number] [place] [address] 15 Nov, 2011 [facility] [place] [facility] [address] [id number] [place] [address] 14 Nov, 2011 [facility] [place] [facility] [address] [id number] [place] [address]- [address]673 13 Nov, 2011 [facility] [place] [facility] [address] [id number] [place] [address]607 10 Nov, 2011 [facility] [place] [facility] [address] [id number] [place] [address]199 Nov, [facility] [place] [facility] [address] [id number] [place] [address]236 Nov, [facility] [place] [facility] [address] [id number] [place] [address] Nov, [facility] [place] [facility] [address] [id number] [place] [address] Nov, [facility] [place] [facility] [address] [id number] [place] [address]854 Nov, [facility] [place] [facility] [address] [id number] [place] [address] Nov, [facility] [place] [facility] [address] [id number] [place] [address] 9[address] Oct, [facility] [place] [facility] [address] [id number] [place] [address]672 Oct, [facility] [place] [facility] [address] [id number] [place] [address]304 Oct, [facility] [place] [facility] [address] [id number] [place] [address] Oct, [facility] [place] [facility] [address] [id number] [place] [address] 1581 Oct, [facility] [place] [facility] [address] [id number] [place] [address]496 Oct, [facility] [place] [facility] [address] [id number] [place] [address] 3987 Oct, [facility] [place] [facility] [address] [id number] [place] [address] 7910 Oct, [facility] [place] [facility] [address] [id number] [place] [address] 4545 Oct, [facility] [place] [facility] [address] [id number] [place] [address] Sep, [facility] [place] [facility] [address] [id number] [place] [address] Sep, [facility] [address] [id number] [place] [address] Sep, [facility] [place] [facility] [address] [id number] [place] [address] Sep, [facility] [address] [id number] [place] [address] 116[address] Sep, [facility] [place] [facility] [address] [id number] [place] [address] Sep, [facility] [address] [id number] [place] [address] 68[address] Sep, [facility] [address] [id number] [place] [address] Sep, [facility] [address] [id number] [place] [address] [address], [facility] [address] [id number] [place] [address] [address] August, [facility] [address] [id number] [place] [address] [address] August, [facility] [address] [id number] [place] [address] 5989 August, [facility] [place] [facility] [address] [id number] [place] [address] [address] August, [facility] [address] [id number] [place] [address] 6271 August, [facility] [place] [facility] [address] [id number] [place] [address] 9139 August, [facility] [place] [facility] [address] [id number] [place] [address] [address], [facility] [address] [id number] [place] [address] August, [facility] [address] [facility] [id number] [place] [address] August, [facility] [address] [facility] [id number], [place] [address] August, [facility] [address] [facility] [id number] [place] [address] August, [facility] [address] [facility] [id number], [place] [address] Oct, IMMUNIZATIONS No Known Immunizations SOCIAL HISTORY Never Assessed REASON FOR VISIT Requests return call PLAN OF CARE VITAL SIGNS MEDICATIONS Unknown [...] Surgical History bladder surgery Hospitalization History [facility] for right groin pain 05/2011 Hospitalization History [facility] for wound on buttocks 08/2012 Hospitalization History [facility], hypoxia secondary to pneumonia 12/02-12/09 Hospitalization History Pneumonia, elevated CO2 on Bipap was in ICU 08/2013 Hospitalization History Hypoxia, Exacerbation COPD, Chest pain 09/05/15 Hospitalization History [place] ideations-[place] 12/28 Hospitalization History hypoxia--[facility] 02/13/2016 Hospitalization History shortness of breath at june 2016 Hospitalization History Shortness of breath at august 2016 Hospitalization History SOB, chest pain at 12/2016
--- OUTSIDE RECORDS SUMMARY | 2017-11-24 17:59 | XMS REPORT ---
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 56127- 8045 Sep, [facility] [address], [place] [address]- 0886 Sep, [facility] [address] [place] [address] 47907- 6468 Sep, Hematemesis 578.0 and Vomiting 787.03 [facility] [address], [place] [address]- 3002 Sep, Episodic mood disorder 296.90 [facility] [address], [place] [address]- 8876 Sep, [facility] [address] [place] [address] 94706- 1714 Sep, [facility] [address], [place] [address]- 1584 05 Sep, 2014 Diabetes mellitus without mention of complication, type II or unspecified type, not stated as uncontrolled 250.00 and Other chronic pain 338.29 [facility] [address] [facility] [id number] [place] [address]- 7165 Sep, Episodic mood disorder 296.90 [facility] [address] [facility] [id number] [place] [address]- 9394 Sep, [facility] [address] [facility] [id number] [place] [address]- 2754 Sep, Episodic mood disorder 296.90 [facility] [id number] [place] [address]- 2427 Sep, [facility] [id number] [place] [address]- 0288 August, [facility] [address] [place] [address]- 1907 August, [facility] [address] [place] [address]- 9315 August, Episodic mood disorder 296.90 [facility] [address] [place] [address]- 6284 August, [facility] [address] 2849 August, Unspecified episodic mood disorder 296.90 [facility] [address], [place] [address]- 3789 August, Vomiting 787.03 [facility] [address], [place] [address]- 2896 August, [facility] [id number], [place] [address]- 0185 August, [facility] [address], [place] [address]- 8032 August, [facility] [id number], [place] [address]- 0816 August, [facility] [id number], [place] [address]- 7753 August, [facility] [place] [facility] [address] [id number] [place] [address]- 5486 28 Jul, 2014 [facility] [place] [facility] [address] [id number] [place] [address]- 2648 14 Jul, 2014 [facility] [place] [facility] [address] [id number] [place] [address]- 1725 Jul, [facility] [place] [facility] [address] [id number] [place] [address]- 9363 30 Jun, 2014 [facility] [place] [facility] [address] [id number] [place] [address]- 7496 30 Jun, 2014 [facility] [place] [facility] [address] [id number] [place] [address]- 1324 Jun, [facility] [place] [facility] [address] [id number] [place] [address]- 6058 Jun, [facility] [place] [facility] [address] [id number] [place] [address]- 7824 Jun, [facility] [place] [facility] [address] [id number] [place] [address]- 8458 Jun, [facility] [place] [facility] [address] [id number] [place] [address]- 5764 Jun, [facility] [place] [facility] [address] [id number] [place] [address]- 4973 Jun, [facility] [place] [facility] [address] [id number] [place] [address]- 8563 Jun, [facility] [place] [facility] [address] [id number] [place] [address]- 8837 Jun, [facility] [place] [facility] [address] [id number] [place] [address]- 5875 Jun, [facility] [place] [facility] [address] [id number] [place] [address]- 7577 Jun, [facility] [place] [facility] [address] [id number] [place] [address]- 6606 26 Jun, 2014 [facility] [place] [facility] [address] [id number] [place] [address]- 0767 26 Jun, 2014 [facility] [place] [facility] [address] [id number] [place] [address]- 1324 24 Jun, 2014 [facility] [place] [facility] [address] [id number] [place] [address]- 4723 Jun, [facility] [place] [facility] [address] [id number] [place] [address]- 5229 Jun, [facility] [place] [facility] [address] [id number] [place] [address]- 6382 Jun, [facility] [place] [facility] [address] [id number] [place] [address]- 1783 Jun, [facility] [place] [facility] [address] [id number] [place] [address]- 4683 Jun, [facility] [place] [facility] [address] [id number] [place] [address]- 0162 Jun, [facility] [place] [facility] [address] [id number] [place] [address]- 5634 Jun, [facility] [place] [facility] [address] [id number] [place] [address]- 7089 Jun, [facility] [place] [facility] [address] [id number] [place] [address]- 0130 20 Jun, 2014 [facility] [place] [facility] [address] [id number] [place] [address]- 2040 20 Jun, 2014 [facility] [place] [facility] [address] [id number] [place] [address]- 7373 19 Jun, 2014 [facility] [place] [facility] [address] [id number] [place] [address]- 4392 19 Jun, 2014 [facility] [place] [facility] [address] [id number] [place] [address]- 9549 18 Jun, 2014 [facility] [place] [facility] [address] [id number] [place] [address]- 8425 18 Jun, 2014 [facility] [place] [facility] [address] [id number] [place] [address]- 4331 17 Jun, 2014 [facility] [place] [facility] [address] [id number] [place] [address]- 6198 17 Jun, 2014 [facility] [place] [facility] [address] [id number] [place] [address]- 2099 16 Jun, 2014 [facility] [place] [facility] [address] [id number] [place] [address]- 4098 16 Jun, 2014 [facility] [place] [facility] [address] [id number] [place] [address]- 7097 16 Jun, 2014 [facility] [place] [facility] [address] [id number] [place] [address]- 0848 16 Jun, 2014 [facility] [place] [facility] [address] [id number] [place] [address]- 8369 16 Jun, 2014 [facility] [place] [facility] [address] [id number] [place] [address]- 1091 16 Jun, 2014 [facility] [place] [facility] [address] [id number] [place] [address]- 3153 13 Jun, 2014 [facility] [place] [facility] [address] [id number] [place] [address]- 9132 13 Jun, 2014 [facility] [place] [facility] [address] [id number] [place] [address]- 8780 12 Jun, 2014 [facility] [place] [facility] [address] [id number] [place] [address]- 8236 12 Jun, 2014 [facility] [place] [facility] [address] [id number] [place] [address]- 2669 09 Jun, 2014 [facility] [place] [facility] [address] [id number] [place] [address]- 0734 09 Jun, 2014 [facility] [place] [facility] [address] [id number] [place] [address]- 5307 Jun, [facility] [place] [facility] [address] [id number] [place] [address]- 1579 Jun, [facility] [place] [facility] [address] [id number] [place] [address]- 2794 Jun, [facility] [place] [facility] [address] [id number] [place] [address]- 6633 Jun, [facility] [place] [facility] [address] [id number] [place] [address]- 7181 Jun, [facility] [place] [facility] [address] [id number] [place] [address]- 5415 Jun, [facility] [place] [facility] [address] [id number] [place] [address]- 5783 Jun, [facility] [place] [facility] [address] [id number] [place] [address]- 9489 Jun, [facility] [place] [facility] [address] [id number] [place] [address]- 7936 Jun, [facility] [place] [facility] [address] [id number] [place] [address]- 8120 Jun, [facility] [place] [facility] [address] [id number] [place] [address]- 1398 Jun, [facility] [place] [facility] [address] [id number] [place] [address]- 0615 Jun, [facility] [place] [facility] [address] [id number] [address]- 9929 Jun, [facility] [place] [facility] [address] [id number] [place] [address]- 4879 Jun, [facility] [place] [facility] [address] [id number] [place] [address]- 7799 May, [facility] [place] [facility] [address] [id number] [place] [address]- 7533 May, [facility] [place] [facility] [address] [id number] [place] [address]- 9516 May, 2014 [facility] [place] [facility] [address] [id number] [place] [address]- 8366 May, 2014 [facility] [place] [facility] [address] [id number] [place] [address]- 2546 May, 2014 [facility] [place] [facility] [address] [id number] [place] [address]- 3045 May, 2014 [facility] [place] [facility] [address] [id number] [place] [address]- 2549 May, 2014 [facility] [place] [facility] [address] [id number] [place] [address]- 0926 May, 2014 [facility] [place] [facility] [address] [facility] [id number] [place] [address] May, 2014 [facility] [place] [facility] [address] [facility] [id number] [place] [address] May, 2014 [facility] [place] [facility] [address] [facility] [id number] [place] [address] 18 May, 2014 [facility] [place] [facility] [address] [facility] [id number] [place] [address] 18 May, 2014 [facility] [place] [facility] [address] [facility] [id number] [place] [address] 13 May, 2014 [facility] [place] [facility] [address] [facility] [id number] [address] 13 May, 2014 [facility] [place] [facility] [address] [facility] [id number] [place] [address] 11 May, 2014 [facility] [place] [facility] [address] [facility] [id number] [place] [address]- [address] 11 May, 2014 [facility] [place] [facility] [address] [facility] [id number] [place] [address] 11 May, 2014 [facility] [place] [facility] [address] [facility] [id number] [place] [address] May, 2014 [facility] [place] [facility] [address] [id number] [place] [address] May, 2014 [facility] [place] [facility] [address] [id number] [place] [address] May, 2014 [facility] [place] [facility] [address] [id number] [place] [address] May, 2014 [facility] [place] [facility] [address] [id number] [place] [address] May, 2014 [facility] [place] [facility] [address] [id number] [place] [address] May, 2014 [facility] [place] [facility] [address] [facility] [id number] [place] [address] May, 2014 [facility] [place] [facility] [address] [id number] [place] [address] May, 2014 [facility] [place] [facility] [address] [id number] [place] [address] May, 2014 [facility] [place] [facility] [address] [facility] [id number] [place] [address] May, 2014 [facility] [place] [facility] [address] [facility] [id number] [place] [address] Apr, [facility] [place] [facility] [address] [facility] [id number] [place] [address] Apr, [facility] [place] [facility] [address] [id number] [place] [address] Apr, [facility] [place] [facility] [address] [id number] [place] [address]- [address] Apr, [facility] [place] [facility] [address] [facility] [id number] [place] [address] Apr, [facility] [place] [facility] [address] [id number] [place] [address] Apr, [facility] [place] [facility] [address] [id number] [place] [address] Apr, [facility] [place] [facility] [address] [id number] [place] [address] Apr, [facility] [place] [facility] [address] [id number] [place] [address] Apr, [facility] [place] [facility] [address] [id number] [place] [address] Apr, [facility] [place] [facility] [address] [id number] [place] [address] Apr, [facility] [place] [facility] [address] [id number] [place] [address]- [address] Apr, [facility] [place] [facility] [address] [id number] [place] [address] Apr, [facility] [place] [facility] [address] [id number], [place] [address] Apr, [facility] [place] [facility] [address] [id number], [place] [address] Apr, [facility] [place] [facility] [address] [id number], [place] [address] Apr, [facility] [place] [facility] [address] [id number], [place] [address] Apr, [facility] [place] [facility] [address] [id number], [place] [address] Apr, [facility] [place] [facility] [address] [id number], [place] [address] Apr, [facility] [place] [facility] [address] [id number], [place] [address] Apr, [facility] [place] [facility] [address] [id number], [place] [address] Mar, [facility] [place] [facility] [address] [id number] [place] [address]- [address] Mar, [facility] [place] [facility] [address] [id number] [place] [address]- [address] Mar, [facility] [place] [facility] [address] [id number] [place] [address]- [address] Mar, [facility] [place] [facility] [address] [id number] [place] [address]- 8939 Mar, [facility] [place] [facility] [address] [id number] [place] [address] 0146 Mar, [facility] [place] [facility] [address] [id number] [place] [address]- 5336 Mar, [facility] [place] [facility] [address] [id number] [place] [address]- 8251 Mar, [facility] [place] [facility] [address] [id number] [place] [address]- 3263 15 Mar, 2014 [facility] [place] [facility] [address] [id number] [place] [address]- 5086 15 Mar, 2014 [facility] [place] [facility] [address] [id number] [place] [address]- 2743 15 Mar, 2014 [facility] [place] [facility] [address] [id number] [place] [address]- 2410 15 Mar, 2014 [facility] [place] [facility] [address] [id number] [place] [address]- 8952 Mar, [facility] [place] [facility] [address] [id number] [place] [address]- 3254 Mar, [facility] [place] [facility] [address] [id number] [place] 9475 02 Mar, 2014 [facility] [place] [facility] [address] [id number] [place] 17[address] Mar, [facility] [place] [facility] [address] [id number] [place] [address]- 4216 Feb, [facility] [place] [facility] [address] [id number] [place] [address]- 3963 Feb, [facility] [place] [facility] [address] [id number] [place] [address]- 4335 Feb, [facility] [place] [facility] [address] [id number] [place] [address]- 0155 Feb, [facility] [place] [facility] [address] [id number] [place] [address]- 1238 Feb, [facility] [place] [facility] [address] [id number] [place] [address]- 5105 Feb, [facility] [place] [facility] [address] [id number] [place] [address]- 1687 Feb, [facility] [place] [facility] [address] [id number] [place] [address]- 6807 18 Feb, 2014 [facility] [place] [facility] [address] [id number] [place] [address]- 2384 18 Feb, 2014 [facility] [place] [facility] [address] [id number] [place] [address]- 4663 Feb, [facility] [place] [facility] [address] [id number] [place] [address]- 2320 17 Feb, 2014 [facility] [place] [facility] [address] [id number] [place] [address]- 0210 17 Feb, 2014 [facility] [place] [facility] [address] [id number] [place] [address]- 0585 17 Feb, 2014 [facility] [place] [facility] [address] [id number] [place] [address]- 7603 14 Feb, 2014 [facility] [place] [facility] [address] [id number] [place] [address]- 9614 14 Feb, 2014 [facility] [place] [facility] [address] [id number] [place] [address]- 4332 14 Feb, 2014 [facility] [place] [facility] [address] [id number], [place] [address]- 4735 Feb, [facility] [place] [facility] [address] [id number] [place] [address]- 2246 Feb, [facility] [place] [facility] [address] [id number] [place] [address]- 1144 Feb, [facility] [place] [facility] [address] [id number] [place] [address]- 2852 Feb, [facility] [place] [facility] [address] [id number] [place] [address]- 3650 Feb, [facility] [place] [facility] [address] [id number] [place] [address]- 1872 Jan, [facility] [place] [facility] [address] [id number] [place] [address]- 9086 Jan, [facility] [place] [facility] [address] [id number] [place] [address]- 1873 Jan, [facility] [place] [facility] [address] [id number] [place] [address]- 1067 Jan, [facility] [place] [facility] [address] [id number] [place] [address]- 4837 Jan, [facility] [place] [facility] [address] [id number] [place] [address]- 2934 Jan, [facility] [place] [facility] [address] [id number], [place] [address]- 2863 Jan, [facility] [place] [facility] [address] [id number], [place] [address]- 7475 Jan, [facility] [place] [facility] [address] [id number] [place] [address]- 3655 Jan, [facility] [place] [facility] [address] [id number] [place] [address]- 5847 Jan, [facility] [place] [facility] [address] [id number] [place] [address]- 6281 Jan, [facility] [place] [facility] [address] [id number] [place] [address]- 5189 17 Jan, 2013 [facility] [place] [facility] [address] [id number] [place] [address]- 6697 17 Jan, 2013 [facility] [place] [facility] [address] [id number] [place] [address]- 3526 17 Jan, 2013 [facility] [place] [facility] [address] [id number] [place] [address]- 3722 15 Jan, 2013 [facility] [place] [facility] [address] [id number] [place] [address]- 7839 15 Jan, 2013 [facility] [place] [facility] [address] [id number] [place] [address]- 7060 14 Jan, 2013 [facility] [place] [facility] [address] [id number] [place] [address]- 5051 14 Jan, 2013 [facility] [place] [facility] [address] [id number] [place] [address]- 6127 13 Jan, 2013 [facility] [place] [facility] [address] [id number] [place] [address]- 7241 13 Jan, 2014 [facility] [place] [facility] [address] [id number] [place] [address]- 5132 13 Jan, 2013 [facility] [place] [facility] [address] [id number] [place] [address]- 3887 13 Jan, 2014 [facility] [place] [facility] [address] [id number] [place] [address]- 6391 10 Jan, 2013 [facility] [place] [facility] [address] [id number] [place] [address]- 5582 02 Jan, 2014 [facility] [place] [facility] [address] [id number] [place] [address]- 0051 02 Jan, 2014 [facility] [place] [facility] [address] [id number] [place] [address]- 9031 25 Dec, 2013 [facility] [place] [facility] [address] [id number] [place] [address]- 6695 25 Sep, 2013 [facility] [place] [facility] [address] [id number] [place] [address]- 2878 23 Sep, 2013 [facility] [place] [facility] [address] [id number] [place] [address] 2546 23 Sep, 2013 [facility] [place] [facility] [address] [id number] [place] [address] 2548 19 Sep, 2013 [facility] [place] [facility] [address] [id number] [place] [address] 2542 19 Sep, 2013 [facility] [place] [facility] [address] [id number] [place] [address]- 9172 17 Sep, 2013 [facility] [place] [facility] [address] [id number] [place] [address]- 2466 17 Sep, 2013 [facility] [place] [facility] [address] [id number] [place] [address]- 1344 09 Sep, 2013 [facility] [place] [facility] [address] [id number] [place] [address]- 9638 09 Sep, 2013 [facility] [place] [facility] [address] [id number] [place] [address]- 9564 08 Sep, 2013 [facility] [place] [facility] [address] [id number] [place] [address]- 1561 08 Sep, 2013 [facility] [place] [facility] [address] [id number] [place] [address] 2541 04 Sep, 2013 [facility] [place] [facility] [address] [id number] [place] [address]- 2540 04 Sep, 2013 [facility] [place] [facility] [address] [id number] [place] [address] 2540 02 Sep, 2013 [facility] [place] [facility] [address] [id number] [place] [address]- 254 02 Sep, 2013 [facility] [place] [facility] [address] [id number] [place] [address]- 6913 02 Sep, 2013 [facility] [place] [facility] [address] [id number] [place] [address]- 1895 Dec, [facility] [place] [facility] [address] [id number] [place] [address]- 9058 Nov, [facility] [place] [facility] [address] [id number] [place] [address]- 0212 Nov, [facility] [place] [facility] [address] [id number] [place] [address]- 1735 Nov, [facility] [place] [facility] [address] [id number] [place] [address]- 4828 Nov, [facility] [place] [facility] [address] [id number] [place] [address]- 3072 Nov, [facility] [place] [facility] [address] [id number] [place] [address]- 3604 Nov, [facility] [place] [facility] [address] [id number] [place] [address]- 6962 Nov, [facility] [place] [facility] [address] [id number] [place] [address]- 1138 Nov, [facility] [place] [facility] [address] [id number] [place] [address]- 1678 Nov, [facility] [place] [facility] [address] [id number] [place] [address]- 7505 Nov, [facility] [place] [facility] [address] [id number] [place] [address]- 2069 Nov, [facility] [place] [facility] [address] [id number] [place] [address]- 3374 Nov, [facility] [place] [facility] [address] [id number] [place] [address]- 2059 Oct, [facility] [place] [facility] [address] [id number] [place] [address]- 1630 Oct, [facility] [place] [facility] [address] [id number] [place] [address]- 7768 Oct, [facility] [place] [facility] [address] [id number] [place] [address]- 1422 Oct, [facility] [place] [facility] [address] [id number] [place] [address]- 9016 Oct, [facility] [place] [facility] [address] [id number] [place] [address]- 8248 Oct, [facility] [place] [facility] [address] [id number] [place] [address]- 4410 Oct, [facility] [place] [facility] [address] [id number] [place] [address]- 9077 Oct, [facility] [place] [facility] [address] [id number] [place] [address]- 1797 Oct, [facility] [place] [facility] [address] [id number] [place] [address]- 7951 Oct, [facility] [place] [facility] [address] [id number] [place] [address]- 6975 Oct, [facility] [place] [facility] [address] [id number] [place] [address]- 9811 Oct, [facility] [place] [facility] [address] [id number] [place] [address]- 2578 Oct, [facility] [place] [facility] [address] [id number] [place] [address]- 6150 Oct, [facility] [place] [facility] [address] [id number] [place] [address]- 3650 Oct, [facility] [place] [facility] [address] [id number] [place] [address]- 9200 Oct, [facility] [place] [facility] [address] [id number] [place] [address]- 3893 Oct, [facility] [place] [facility] [address] [id number] [place] [address]- 0323 Sep, [facility] [place] [facility] [address] [id number] [place] [address]- 7584 Sep, [facility] [place] [facility] [address] [id number] [place] [address]- 1862 Sep, [facility] [place] [facility] [address] [id number] [place] [address]- 3842 20 Sep, 2013 [facility] [place] [facility] [address] [facility] [id number] [place] [address]- 0906 18 Sep, 2013 [facility] [place] [facility] [address] [id number] [place] [address]- 6212 18 Sep, 2013 [facility] [place] [facility] [address] [id number] [place] [address]- 2283 17 Sep, 2013 [facility] [place] [facility] [address] [id number] [place] [address]- 9324 17 Sep, 2013 [facility] [place] [facility] [address] [id number] [place] [address]- 4166 Sep, [facility] [place] [facility] [address] [id number], [place] [address]- 5018 Sep, [facility] [place] [facility] [address] [id number] [place] [address]- 5924 Sep, [facility] [place] [facility] [address] [id number] [place] [address]- 0779 Sep, [facility] [place] [facility] [address] [id number], [place] [address]- 4472 Sep, [facility] [place] [facility] [address] [id number], [place] [address]- 8753 Sep, [facility] [place] [facility] [address] [id number] [place] [address]- 1173 Sep, [facility] [place] [facility] [address] [id number], [place] [address]- 3730 09 Sep, 2013 [facility] [place] [facility] [address] [id number], [place] [address]- 3275 07 Sep, 2013 [facility] [place] [facility] [address] [id number] [place] [address]- 6549 Sep, [facility] [place] [facility] [address] [id number] [place] [address]- 8719 Sep, [facility] [place] [facility] [address] [id number] [place] [address]- 0210 Sep, [facility] [place] [facility] [address] [id number] [place] [address]- 8345 Sep, [facility] [place] [facility] [address] [id number] [place] [address]- 2008 Sep, [facility] [place] [facility] [address] [id number] [place] [address]- 8083 August, [facility] [place] [facility] [address] [id number] [place] [address]- 3279 August, [facility] [place] [facility] [address] [id number] [place] [address]- 1256 August, [facility] [place] [facility] [address] [id number] [place] [address]- 8076 August, [facility] [place] [facility] [address] [id number] [place] [address]- 9152 August, [facility] [place] [facility] [address] [id number] [place] [address]- 1675 August, [facility] [place] [facility] [address] [id number] [place] [address]- 6375 August, [facility] [place] [facility] [address] [id number] [place] [address]- 6642 August, [facility] [place] [facility] [address] [id number] [place] [address]- 3346 August, [facility] [place] [facility] [address] [id number] [place] [address]- 1463 August, [facility] [place] [facility] [address] [id number] [place] [address]- 1469 August, [facility] [place] [facility] [address] [id number] [place] [address]- 2835 Jul, [facility] [place] [facility] [address] [id number] [place] [address]- 3750 Jul, [facility] [place] [facility] [address] [id number] [place] [address]- 0623 Jul, [facility] [place] [facility] [address] [id number] [place] [address]- 8745 Jul, [facility] [address] [id number] [place] [address]- 6299 Jul, [facility] [place] [facility] [address] [id number] [place] [address]- 2606 Jul, [facility] [place] [facility] [address] [id number] [place] [address]- 3019 Jul, [facility] [place] [facility] [address] [id number] [place] [address]- 5347 Jul, [facility] [place] [facility] [address] [id number] [place] [address]- 8982 Jul, [facility] [place] [facility] [address] [id number] [place] [address]- 3645 Jul, [facility] [place] [facility] [address] [id number] [place] [address]- 2398 Jul, [facility] [place] [facility] [address] [id number] [place] [address]- 4332 Jul, [facility] [place] [facility] [address] [id number] [place] [address]- 1451 Jul, [facility] [place] [facility] [address] [id number] [place] [address]- 1348 Jul, [facility] [place] [facility] [address] [id number] [place] [address]- 6347 Jul, [facility] [place] [facility] [address] [id number] [place] [address]- 7093 Jul, [facility] [place] [facility] [address] [id number] [place] [address]- 1407 Jul, [facility] [place] [facility] [address] [id number] [place] [address]- 0536 Jul, [facility] [place] [facility] [address] [id number] [place] [address]- 4020 Jul, [facility] [place] [facility] [address] [id number] [place] [address]- 6357 Jul, [facility] [place] [facility] [address] [id number] [place] [address]- 0711 Jul, [facility] [place] [facility] [address] [id number] [place] [address]- 4728 Jul, [facility] [place] [facility] [address] [id number] [place] [address]- 2825 Jul, [facility] [place] [facility] [address] [id number] [place] [address]- 1873 Jun, [facility] [place] [facility] [address] [id number] [place] [address]- 0403 Jun, [facility] [place] [facility] [address] [id number] [place] [address]- 6613 Jun, [facility] [place] [facility] [address] [id number] [place] [address]- 0601 Jun, [facility] [place] [facility] [address] [id number] [place] [address]- 2729 Jun, [facility] [place] [facility] [address] [id number] [place] [address]- 4576 Jun, [facility] [place] [facility] [address] [id number] [place] [address]- 4055 Jun, [facility] [place] [facility] [address] [id number] [place] [address]- 9786 Jun, [facility] [place] [facility] [address] [id number] [place] [address]- 3158 18 Jun, 2013 [facility] [place] [facility] [address] [id number] [place] [address]- 8135 18 Jun, 2013 [facility] [place] [facility] [address] [id number] [place] [address]- 9476 17 Jun, 2013 [facility] [place] [facility] [address] [id number] [place] [address]- 0596 Jun, [facility] [place] [facility] [address] [id number] [place] [address]- 8529 May, [facility] [place] [facility] [address] [id number] [place] [address]- 1692 May, [facility] [place] [facility] [address] [id number] [place] [address]- 4265 Apr, [facility] [place] [facility] [address] [id number] [place] [address]- 1311 Apr, [facility] [place] [facility] [address] [id number] [place] [address]- 6744 Apr, [facility] [place] [facility] [address] [id number] [place] [address]- 0503 Apr, [facility] [place] [facility] [address] [id number] [place] [address]- 6255 Apr, [facility] [place] [facility] [address] [id number] [place] [address]- 4428 Apr, [facility] [place] [facility] [address] [id number] [place] [address]- 7535 Apr, [facility] [place] [facility] [address] [id number] [place] [address]- 2293 Apr, [facility] [place] [facility] [address] [id number] [place] [address]- 0156 14 Apr, 2013 [facility] [place] [facility] [address] [id number] [place] [address]- 9158 Apr, [facility] [place] [facility] [address] [id number] [place] [address]- 1627 Apr, [facility] [place] [facility] [address] [id number] [place] [address]- 1504 Mar, [facility] [place] [facility] [address] [id number] [place] 8901 Mar, [facility] [place] [facility] [address] [id number] [place] [address]- 2023 Mar, [facility] [place] [facility] [address] [id number] [place] [address]- 0025 Mar, [facility] [place] [facility] [address] [id number] [place] [address]- 2236 Feb, [facility] [place] [facility] [address] [id number] [place] [address]- 6174 Feb, [facility] [place] [facility] [address] [id number], [place] [address] Feb, [facility] [place] [facility] [address] [id number] [place] [address] Feb, [facility] [place] [facility] [address] [id number], [place] [address] Feb, [facility] [place] [facility] [address] [id number], [place] [address] Feb, [facility] [place] [facility] [address] [id number], [place] [address] Feb, [facility] [place] [facility] [address] [id number] [place] [address] Feb, [facility] [place] [facility] [address] [id number], [place] [address] Feb, [facility] [place] [facility] [address] [id number], [place] [address] Feb, [facility] [place] [facility] [address] [id number] [place] [address] 02 Feb, 2013 [facility] [place] [facility] [address] [id number] [place] [address] Jan, 2012 [facility] [place] [facility] [address] [id number] [place] [address] Jan, [facility] [place] [facility] [address] [id number] [place] [address] Jan, 2012 [facility] [place] [facility] [address] [id number] [place] [address] Jan, [facility] [place] [facility] [address] [id number] [place] [address] Jan, [facility] [place] [facility] [address] [id number] [place] [address] Jan, [facility] [place] [facility] [address] [id number] [place] [address]- [address] 03 Jan, 2013 [facility] [place] [facility] [address] [id number] [place] [address] 02 Jan, 2013 [facility] [place] [facility] [address] [id number] [place] [address] 30 Sep, 2012 [facility] [place] [facility] [address] [id number] [place] [address] 25 Sep, 2012 [facility] [place] [facility] [address] [id number] [place] [address] 18 Sep, 2012 [facility] [place] [facility] [address] [id number] [place] [address] 17 Sep, 2012 [facility] [place] [facility] [address] [id number] [place] [address]- [address] 17 Sep, 2012 [facility] [place] [facility] [address] [id number] [place] [address] 16 Sep, 2012 [facility] [place] [facility] [address] [id number] [place] [address] 13 Dec, 2012 [facility] [place] [facility] [address] [id number] [place] [address] Dec, [facility] [place] [facility] [address] [id number] [place] [address] Dec, [facility] [place] [facility] [address] [id number] [place] [address] Dec, [facility] [place] [facility] [address] [id number] [place] [address] Nov, [facility] [place] [facility] [address] [id number] [place] [address]- [address]166 Nov, [facility] [place] [facility] [address] [id number] [place] [address]- [address] Nov, [facility] [place] [facility] [address] [id number] [place] [address] Nov, [facility] [place] [facility] [address] [id number] [place] [address] Nov, [facility] [place] [facility] [address] [id number] [place] [address] 1435 Nov, [facility] [place] [facility] [address] [id number] [place] [address] Nov, [facility] [place] [facility] [address] [id number] [place] [address]761 Oct, [facility] [place] [facility] [address] [id number] [place] [address] Oct, [facility] [place] [facility] [address] [id number] [place] [address]- [address] Oct, [facility] [place] [facility] [address] [id number] [place] [address]- [address] Oct, [facility] [place] [facility] [address] [id number] [place] [address]- [address] 15 Oct, 2012 [facility] [place] [facility] [address] [id number] [place] [address]- [address]265 Oct, [facility] [place] [facility] [address] [id number] [place] [address]- 3036 Sep, [facility] [place] [facility] [address] [id number] [place] [address]- 1042 Sep, [facility] [place] [facility] [address] [id number] [place] [address]- [address] Sep, [facility] [place] [facility] [address] [id number] [place] [address]- [address] 14 Sep, 2012 [facility] [place] [facility] [address] [id number] [place] [address] Sep, [facility] [place] [facility] [address] [id number] [place] [address] 8794 Sep, [facility] [place] [facility] [address] [id number] [place] [address]- 4944 Sep, [facility] [place] [facility] [address] [id number] [place] [address] 40[address] Sep, [facility] [place] [facility] [address] [id number] [place] [address]- 3175 Sep, [facility] [place] [facility] [address] [id number] [place] [address]- 7814 August, [facility] [place] [facility] [address] [id number] [place] [address]- [address]163 August, [facility] [place] [facility] [address] [id number] [place] [address]- 1137 August, [facility] [place] [facility] [address] [id number] [place] [address]- [address]146 August, [facility] [place] [facility] [address] [id number] [place] [address]- [address] August, [facility] [place] [facility] [address] [id number] [place] [address]- 8495 August, [facility] [place] [facility] [address] [id number] [place] [address]- [address] August, [facility] [address] [id number] [place] [address] August, [facility] [address] [id number] [place] [address] Jul, [facility] [address] [id number] [place] [address] Jul, [address] [id number] Jul [facility] [address] [id number] [place] [address]- [address] Jun, [facility] [address] [id number] [place] [address] Jun, [facility] [address] [id number] [place] [address]- 2512 Jun, [facility] [address] [id number] [place] [address]- [address] Jun, [facility] [address] [id number] [place] [address]- 78[address] Jun, [facility] [address] [facility] [id number] [place] [address]- [address] Jun, [facility] [address] [id number] [place] [address]- [address] May, [facility] [address] [id number] [place] [address]- 4406 May, [facility] [address] [id number] [place] [address]- 3516 May, [facility] [address] [id number] [place] [address]- [address] May, [facility] [address] [id number] [place] [address]- 6536 May, [facility] [place] [facility] [address] [id number] [place] [address]- [address] 30 Apr, 2012 [facility] [address] [id number] [place] [address]- 359[address] Apr, [facility] [address] [id number] [place] [address]- [address] Apr, [facility] [facility] [address] [id number] [place] [address] Apr, [facility] [address] [id number] [place] [address] Apr, [facility] [address] [id number] [place] [address] Apr, [facility] [address] [id number] [place] [address] Mar, [facility] [address] [id number] [place] [address] Mar, [facility] [address] [id number] [place] [address] Mar, [facility] [address] [id number] [place] [address] Mar, [facility] [address] [id number] [place] [address] 19 Mar, 2012 [facility] [address] [id number] [place] [address] 18 Mar, 2012 [facility] [address] [id number] [place] [address] 18 Mar, 2012 [facility] [address] [id number] [place] [address] 10 Mar, 2012 [facility] [address] [id number] [place] [address] 1994 10 Mar, 2012 [facility] [address] [id number] [place] [address] 05 Mar, 2012 [facility] [place] [facility] [address] [id number] [place] [address] Mar, [facility] [place] [facility] [address] [id number] [place] [address] Feb, [facility] [place] [facility] [address] [id number] [place] [address] Feb, [facility] [place] [facility] [address] [id number] [place] [address] Feb, [facility] [place] [facility] [address] [id number] [place] [address] Feb, [facility] [place] [facility] [address] [id number] [place] [address] Feb, [facility] [place] [facility] [address] [id number] [place] [address]168 Feb, [facility] [place] [facility] [address] [id number] [place] [address] 95[address] Feb, [facility] [place] [facility] [address] [id number] [place] [address] 38[address] Feb, [facility] [place] [facility] [address] [id number] [place] [address] Feb, [facility] [place] [facility] [address] [id number], [place] [address] Feb, [facility] [place] [facility] [address] [id number], [place] [address] Feb, [facility] [place] [facility] [address] [id number] [place] [address] Jan, [facility] [place] [facility] [address] [id number] [place] [address] Jan, [facility] [place] [facility] [address] [id number] [place] [address] Jan, [facility] [place] [facility] [address] [id number] [place] [address] 98[address] Jan, [facility] [place] [facility] [address] [id number] [place] [address]- [address] Jan, [facility] [place] [facility] [address] [id number] [place] [address]- [address]286 19 Jan, 2012 [facility] [address] [id number] [place] [address]- 8460 09 Jan, 2012 [facility] [place] [facility] [address] [id number] [place] [address]- 4766 24 Dec, 2011 [facility] [place] [facility] [address] [id number] [place] [address] 9413 17 Dec, 2011 [facility] [place] [facility] [address] [id number] [place] [address] 2542 13 Dec, 2011 [facility] [place] [facility] [address] [id number] [place] [address]- 4971 12 Dec, 2011 [facility] [address] [id number] [place] [address] 23 Nov, 2011 [facility] [place] [facility] [address] [id number] [place] [address]- [address]64 20 Nov, 2011 [facility] [place] [facility] [address] [id number] [place] [address]110 17 Nov, 2011 [facility] [place] [facility] [address] [id number] [place] [address] 8[address] 15 Nov, 2011 [facility] [place] [facility] [address] [id number] [place] [address]174 14 Nov, 2011 [facility] [place] [facility] [address] [id number] [place] [address]- 0851 13 Nov, 2011 [facility] [place] [facility] [address] [id number] [place] [address]- 1844 10 Nov, 2011 [facility] [place] [facility] [address] [id number] [place] [address]- 28[address] Nov, [facility] [place] [facility] [address] [id number] [place] [address] Nov, [facility] [place] [facility] [address] [id number] [place] [address] Nov, [facility] [place] [facility] [address] [id number] [place] [address]- [address] Nov, [facility] [place] [facility] [address] [id number] [place] [address] Nov, [facility] [place] [facility] [address] [id number] [place] [address]- 67[address] Nov, [facility] [place] [facility] [address] [id number] [place] [address] 8753 Oct, [facility] [place] [facility] [address] [id number] [place] [address] 478[address] Oct, [facility] [place] [facility] [address] [id number] [place] [address]- 69[address] Oct, [facility] [place] [facility] [address] [id number] [place] [address]- 1638 Oct, [facility] [place] [facility] [address] [id number] [place] [address]- 0943 Oct, [facility] [place] [facility] [address] [id number] [place] [address] 4278 Oct, [facility] [place] [facility] [address] [id number] [place] [address] 7058 Oct, [facility] [place] [facility] [address] [id number] [place] [address]- 8208 Oct, [facility] [place] [facility] [address] [id number] [place] [address]- 2415 Oct, [facility] [place] [facility] [address] [id number] [place] [address]- [address]70 Sep, [facility] [place] [facility] [address] [id number] [place] [address]- 2967 Sep, [facility] [place] [facility] [address] [id number] [place] [address]- 7249 Sep, [facility] [place] [facility] [address] [id number] [place] [address]- 6786 Sep, [facility] [place] [facility] [address] [id number] [place] [address]- 366[address] Sep, [facility] [place] [facility] [address] [id number] [place] [address]- 2502 Sep, [facility] [place] [facility] [address] [id number] [place] [address]- 4377 Sep, [facility] [place] [facility] [address] [id number] [place] [address]- 9585 Sep, [facility] [address] [id number] [place] [address] August, [facility] [place] [facility] [address] [id number] [place] [address]- 5890 August, [facility] [place] [facility] [address] [id number] [place] [address]- 9726 August, [facility] [place] [facility] [address] [facility] [id number] [place] [address]- 8889 August, [facility] [place] [facility] [address] [id number] [place] [address]- 8400 August, [facility] [place] [facility] [address] [id number] [place] [address]- 5306 August, [facility] [place] [facility] [address] [id number] [place] [address]- 0145 August, [facility] [place] [facility] [address] [facility] [id number] [place] [address]- 9309 August, [facility] [place] [facility] [address] [facility] [id number] [place] [address]- 7940 August, [facility] [place] [facility] [address] [facility] [id number] [place] [address] [address] August, [facility] [address] [facility] [id number] [place] [address]- 4[address] August, [facility] [address] [facility] [id number] [place] [address]- 1008 August, [facility] [address] [facility] [id number], [place] [address] Oct, IMMUNIZATIONS No Known Immunizations SOCIAL HISTORY [...] Hospitalization History suicidal ideations-[place] 12/28 Hospitalization History hypoxia--[facility] 02/13/2016 Hospitalization History shortness of breath at june 2016 Hospitalization History Shortness of breath at august 2016 Hospitalization History SOB, chest pain at 12/2016
--- OUTSIDE RECORDS SUMMARY | 2017-11-24 18:01 | XMS REPORT ---
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 pain 338.29 [facility] [address] [facility] [id number] [address]- 2089 Sep, Episodic mood disorder 296.90 [facility] [address], [place] [address]- 2002 Sep, [facility] [address], [place] [address]- 8055 Sep, Episodic mood disorder 296.90 [facility] [address], [place] [address]- 4219 Sep, [facility] [address] [place] [address] 44944- 5681 August, [facility] [address], [place] [address]- 3339 August, [facility] [address] [place] [address] 04505- 3166 August, Episodic mood disorder 296.90 [facility] [address] [address]- 5184 August, [facility] [address] [place] [address] 75419- 5693 August, Unspecified episodic mood disorder 296.90 [facility] [address], [place] [address]- 5564 August, Vomiting 787.03 [facility] [address], [place] [address]- 5615 August, [facility] [address] [address]- 0524 August, [facility] [address] [address]- 7799 August, [facility] [address] [address]- 1432 August, [facility] [address], [place] [address]- 2546 August, [facility] [place] [facility] [address] [id number] [place] [address]- 7088 28 Jul, 2014 [facility] [place] [facility] [address] [id number] [place] [address]- 5856 Jul, [facility] [place] [facility] [address] [id number] [place] [address]- 9781 Jul, [facility] [place] [facility] [address] [id number] [place] [address]- 5228 30 Jun, 2014 [facility] [place] [facility] [address] [id number] [place] [address]- 4244 Jun, [facility] [place] [facility] [address] [id number] [place] [address]- 6539 Jun, [facility] [place] [facility] [address] [id number] [place] [address]- 5220 Jun, [facility] [place] [facility] [address] [id number] [place] [address]- 7567 Jun, [facility] [place] [facility] [address] [id number] [place] [address]- 8021 Jun, [facility] [place] [facility] [address] [id number] [place] [address]- 3115 Jun, [facility] [place] [facility] [address] [id number] [place] [address]- 4358 Jun, [facility] [place] [facility] [address] [id number] [place] [address]- 2470 Jun, [facility] [place] [facility] [address] [id number] [place] [address]- 1945 Jun, [facility] [place] [facility] [address] [id number] [place] [address]- 4831 Jun, [facility] [place] [facility] [address] [id number] [place] [address]- 3436 Jun, [facility] [place] [facility] [address] [id number] [place] [address]- 5632 26 Jun, 2014 [facility] [place] [facility] [address] [id number] [place] [address]- 0998 26 Jun, 2014 [facility] [place] [facility] [address] [id number] [place] [address]- 7950 24 Jun, 2014 [facility] [place] [facility] [address] [id number] [place] [address]- 9434 Jun, [facility] [place] [facility] [address] [id number] [place] [address]- 4188 Jun, [facility] [place] [facility] [address] [id number] [place] [address]- 2427 Jun, [facility] [place] [facility] [address] [id number] [place] [address]- 9513 Jun, [facility] [place] [facility] [address] [id number] [place] [address]- 7204 Jun, [facility] [place] [facility] [address] [id number] [place] [address]- 1845 Jun, [facility] [place] [facility] [address] [id number] [place] [address]- 8576 Jun, [facility] [place] [facility] [address] [id number] [place] [address]- 8998 20 Jun, 2014 [facility] [place] [facility] [address] [id number] [place] [address]- 1206 20 Jun, 2014 [facility] [place] [facility] [address] [id number] [place] [address]- 4933 20 Jun, 2014 [facility] [place] [facility] [address] [id number] [place] [address]- 7494 19 Jun, 2014 [facility] [place] [facility] [address] [id number] [place] [address]- 3172 19 Jun, 2014 [facility] [place] [facility] [address] [id number] [place] 7982 18 Jun, 2014 [facility] [place] [facility] [address] [id number] [place] [address]- 9828 18 Jun, 2014 [facility] [place] [facility] [address] [id number] [place] [address]- 3650 17 Jun, 2014 [facility] [place] [facility] [address] [id number] [place] [address]- 2815 17 Jun, 2014 [facility] [place] [facility] [address] [id number] [place] [address]- 6822 16 Jun, 2014 [facility] [place] [facility] [address] [id number] [place] [address]- 0535 16 Jun, 2014 [facility] [place] [facility] [address] [id number] [place] [address]- 2284 16 Jun, 2014 [facility] [place] [facility] [address] [id number] [place] [address]- 6131 16 Jun, 2014 [facility] [place] [facility] [address] [id number] [place] [address]- 7162 16 Jun, 2014 [facility] [place] [facility] [address] [id number] [place] [address]- 9339 16 Jun, 2014 [facility] [place] [facility] [address] [id number] [place] [address]- 8965 13 Jun, 2014 [facility] [place] [facility] [address] [id number] [place] [address]- 0354 13 Jun, 2014 [facility] [place] [facility] [address] [id number] [place] [address]- 6981 12 Jun, 2014 [facility] [place] [facility] [address] [id number] [place] [address]- 1222 12 Jun, 2014 [facility] [place] [facility] [address] [id number] [place] [address]- 5136 09 Jun, 2014 [facility] [place] [facility] [address] [id number] [place] [address]- 1823 09 Jun, 2014 [facility] [place] [facility] [address] [id number] [address]- 3780 Jun, [facility] [place] [facility] [address] [id number] [place] [address]- 3962 Jun, [facility] [place] [facility] [address] [id number] [place] [address]- 3160 Jun, [facility] [place] [facility] [address] [facility] [id number] [place] [address]- 1989 Jun, [facility] [place] [facility] [address] [id number] [place] [address] Jun, [facility] [place] [facility] [address] [id number] [place] [address] Jun, [facility] [place] [facility] [address] [id number] [place] [address] Jun, [facility] [place] [facility] [address] [facility] [id number] [place] [address] Jun, [facility] [place] [facility] [address] [facility] [id number] [place] [address] Jun, [facility] [place] [facility] [address] [id number] [place] [address] Jun, [facility] [place] [facility] [address] [facility] [id number] [place] [address] Jun, [facility] [place] [facility] [address] [id number] [place] [address] Jun, [facility] [place] [facility] [address] [facility] [id number], [place] [address] Jun, [facility] [place] [facility] [address] [id number] [place] [address] Jun, [facility] [place] [facility] [address] [facility] [id number] [place] [address] May, [facility] [place] [facility] [address] [facility] [id number] [address] [address] May, [facility] [place] [facility] [address] [id number] [place] [address] May, 2014 [facility] [place] [facility] [address] [id number] [place] [address] May, 2014 [facility] [place] [facility] [address] [id number] [place] [address]- [address] May, 2014 [facility] [place] [facility] [address] [id number] [place] [address]- [address] May, 2014 [facility] [place] [facility] [address] [id number] [place] [address] May, 2014 [facility] [place] [facility] [address] [id number] [place] [address] May, 2014 [facility] [place] [facility] [address] [place] [id number] [place] [address] May, 2014 [facility] [place] [facility] [address] [facility] [id number] [place] [address] 79[address] May, 2014 [facility] [place] [facility] [address] [facility] [id number] [place] [address] 18 May, 2014 [facility] [place] [facility] [address] [facility] [id number] [place] [address]- [address] 18 May, 2014 [facility] [place] [facility] [address] [facility] [id number] [place] [address] 13 May, 2014 [facility] [place] [facility] [address] [facility] [id number] [place] [address]- [address] 13 May, 2014 [facility] [place] [facility] [address] [facility] [id number] [place] [address] May, 2014 [facility] [place] [facility] [address] [facility] [id number] [place] [address]- [address]26 May, 2014 [facility] [place] [facility] [address] [facility] [id number] [place] [address]- [address] May, 2014 [facility] [place] [facility] [address] [facility] [id number] [place] [address]- [address] May, 2014 [facility] [place] [facility] [address] [id number] [place] [address]- 37[address] May, 2014 [facility] [place] [facility] [address] [facility] [id number] [place] [address]- [address] May, 2014 [facility] [place] [facility] [address] [id number] [place] [address]- 8697 May, 2014 [facility] [place] [facility] [address] [id number] [place] [address] May, 2014 [facility] [place] [facility] [address] [id number] [place] [address] May, 2014 [facility] [place] [facility] [address] [facility] [id number] [place] [address]- 1742 May, 2014 [facility] [place] [facility] [address] [facility] [id number], [place] [address] May, 2014 [facility] [place] [facility] [address] [facility] [id number] [place] [address] 1466 May, 2014 [facility] [place] [facility] [address] [facility] [id number] [place] [address] May, [facility] [place] [facility] [address] [facility] [id number], [place] [address] Apr, [facility] [place] [facility] [address] [facility] [id number], [place] [address] Apr, [facility] [place] [facility] [address] [id number], [place] [address] Apr, [facility] [place] [facility] [address] [facility] [id number], [place] [address] Apr, [facility] [place] [facility] [address] [facility] [id number], [place] [address] Apr, [facility] [place] [facility] [address] [facility] [id number], [place] [address] Apr, [facility] [place] [facility] [address] [id number] [place] [address]- 56[address] Apr, [facility] [place] [facility] [address] [id number] [place] [address]- [address]642 Apr, [facility] [place] [facility] [address] [id number] [place] [address]- 0964 Apr, [facility] [place] [facility] [address] [id number] [place] [address]- 48[address] Apr, [facility] [place] [facility] [address] [id number] [place] [address]- 7268 Apr, [facility] [place] [facility] [address] [id number] [place] [address]- 7417 Apr, [facility] [place] [facility] [address] [id number] [place] [address]- 2868 Apr, [facility] [place] [facility] [address] [id number] [place] [address]- [address] Apr, [facility] [place] [facility] [address] [id number] [place] [address] Apr, [facility] [place] [facility] [address] [id number] [place] [address] 9884 Apr, [facility] [place] [facility] [address] [id number], [place] [address] Apr, [facility] [place] [facility] [address] [id number], [place] [address] Apr, [facility] [place] [facility] [address] [id number] [place] [address] 1333 Apr, [facility] [place] [facility] [address] [id number] [place] [address]- 8110 Apr, [facility] [place] [facility] [address] [id number] [place] [address] 5415 Mar, [facility] [place] [facility] [address] [id number] [place] [address] 2349 Mar, [facility] [place] [facility] [address] [id number] [place] [address] 7106 Mar, [facility] [place] [facility] [address] [id number] [place] [address]- 4596 Mar, [facility] [place] [facility] [address] [id number] [place] [address] 4106 Mar, [facility] [place] [facility] [address] [id number] [place] [address] 6796 Mar, [facility] [place] [facility] [address] [id number] [place] [address]- 1498 Mar, [facility] [place] [facility] [address] [id number] [place] [address] 1908 Mar, [facility] [place] [facility] [address] [id number] [place] [address]- 2563 15 Mar, 2014 [facility] [place] [facility] [address] [id number] [place] [address]- 9512 15 Mar, 2014 [facility] [place] [facility] [address] [id number] [place] [address]- 1533 [address], [address] [facility] [place] [facility] [address] [id number] [place] [address]- 6995 15 Mar, 2014 [facility] [place] [facility] [address] [id number] [place] [address]- 5858 Mar, [facility] [place] [facility] [address] [id number] [place] [address] Mar, [facility] [place] [facility] [address] [id number] [place] [address]- 7116 Mar, [facility] [place] [facility] [address] [id number] [place] [address] 4446 Mar, [facility] [place] [facility] [address] [id number] [place] [address] 7616 Feb, [facility] [place] [facility] [address] [id number] [place] [address]- 0996 Feb, [facility] [place] [facility] [address] [id number] [place] [address]- 3594 Feb, [facility] [place] [facility] [address] [id number] [place] [address]- 6646 Feb, [facility] [place] [facility] [address] [id number] [place] [address]- 9957 Feb, [facility] [place] [facility] [address] [id number] [place] [address]- 3578 Feb, [facility] [place] [facility] [address] [id number] [place] [address]- 3596 Feb, [facility] [place] [facility] [address] [id number] [place] [address]- 1053 18 Feb, 2014 [facility] [place] [facility] [address] [id number] [place] [address]- 6704 18 Feb, 2014 [facility] [place] [facility] [address] [id number] [place] [address]- 1694 17 Feb, 2014 [facility] [place] [facility] [address] [id number] [place] [address]- 4117 17 Feb, 2014 [facility] [place] [facility] [address] [id number] [place] [address]- 3406 17 Feb, 2014 [facility] [place] [facility] [address] [id number], [place] [address] 2208 17 Feb, 2014 [facility] [place] [facility] [address] [id number] [place] [address]- 7679 14 Feb, 2014 [facility] [place] [facility] [address] [id number] [place] [address]- 9785 14 Feb, 2014 [facility] [place] [facility] [address] [id number] [place] [address]- 7704 14 Feb, 2014 [facility] [place] [facility] [address] [id number] [place] [address]- 4521 14 Feb, 2014 [facility] [place] [facility] [address] [id number] [place] [address]- 7629 10 Feb, 2014 [facility] [place] [facility] [address] [id number] [place] [address]- 0060 10 Feb, 2014 [facility] [place] [facility] [address] [id number] [place] [address]- 6588 Feb, [facility] [place] [facility] [address] [id number] [place] [address]- 0797 Feb, [facility] [place] [facility] [address] [id number] [place] [address]- 0951 Jan, [facility] [place] [facility] [address] [id number] [place] [address]- 1249 Jan, [facility] [place] [facility] [address] [id number] [place] [address]- 5922 Jan, [facility] [place] [facility] [address] [id number] [place] [address]- 9313 Jan, [facility] [place] [facility] [address] [id number] [place] [address]- 2465 Jan, [facility] [place] [facility] [address] [id number] [place] [address]- 2640 Jan, [facility] [place] [facility] [address] [id number] [place] [address]- 7395 Jan, [facility] [place] [facility] [address] [id number] [place] [address]- 3440 Jan, [facility] [place] [facility] [address] [id number] [place] [address]- 3694 Jan, [facility] [place] [facility] [address] [id number] [place] [address]- 0330 Jan, [facility] [place] [facility] [address] [id number] [place] [address]- 0887 Jan, [facility] [place] [facility] [address] [id number] [place] [address]- 5225 17 Jan, 2013 [facility] [place] [facility] [address] [id number] [place] [address]- 8689 17 Jan, 2013 [facility] [place] [facility] [address] [id number] [place] [address]- 6627 17 Jan, 2014 [facility] [place] [facility] [address] [id number] [place] [address]- 1059 15 Jan, 2014 [facility] [place] [facility] [address] [id number] [place] [address]- 4465 15 Jan, 2014 [facility] [place] [facility] [address] [id number] [place] [address]- 5079 14 Jan, 2014 [facility] [place] [facility] [address] [id number] [place] [address]- 3750 14 Jan, 2014 [facility] [place] [facility] [address] [id number] [place] [address]- 3602 13 Jan, 2014 [facility] [place] [facility] [address] [id number] [place] [address]- 6384 13 Jan, 2014 [facility] [place] [facility] [address] [id number] [place] [address]- 3021 13 Jan, 2014 [facility] [place] [facility] [address] [id number] [place] [address]- 1295 13 Jan, 2014 [facility] [place] [facility] [address] [id number] [place] [address]- 4216 10 Jan, 2014 [facility] [place] [facility] [address] [id number] [place] [address]- 0655 02 Jan, 2014 [facility] [place] [facility] [address] [id number] [place] [address]- 3165 02 Jan, 2014 [facility] [place] [facility] [address] [id number] [place] [address]- 0517 25 Dec, 2013 [facility] [place] [facility] [address] [id number] [place] [address]- 0167 25 Sep, 2013 [facility] [place] [facility] [address] [id number] [place] [address]- 0880 23 Sep, 2013 [facility] [place] [facility] [address] [id number] [place] [address]- 0746 23 Sep, 2013 [facility] [place] [facility] [address] [id number] [place] [address] 2546 19 Sep, 2013 [facility] [place] [facility] [address] [id number] [place] [address]- 2542 19 Sep, 2013 [facility] [place] [facility] [address] [id number] [place] [address]- 8545 17 Sep, 2013 [facility] [place] [facility] [address] [id number] [place] [address]- 1697 17 Sep, 2013 [facility] [place] [facility] [address] [id number] [place] [address]- 4403 09 Sep, 2013 [facility] [place] [facility] [address] [id number] [place] [address]- 2729 09 Sep, 2013 [facility] [place] [facility] [address] [id number] [place] [address]- 8373 08 Sep, 2013 [facility] [place] [facility] [address] [id number] [place] [address]- 7392 08 Sep, 2013 [facility] [place] [facility] [address] [id number], [place] [address]- 9636 04 Sep, 2013 [facility] [place] [facility] [address] [id number], [place] [address]- 2548 04 Sep, 2013 [facility] [place] [facility] [address] [id number] [place] [address]- 2540 02 Sep, 2013 [facility] [place] [facility] [address] [id number] [place] [address]- 7308 02 Sep, 2013 [facility] [place] [facility] [address] [id number] [place] [address]- 6268 02 Sep, 2013 [facility] [place] [facility] [address] [id number] [place] [address]- 3645 Dec, [facility] [place] [facility] [address] [id number] [place] [address]- 7533 Nov, [facility] [place] [facility] [address] [id number] [place] [address]- 2914 Nov, [facility] [place] [facility] [address] [id number] [place] [address]- 5486 Nov, [facility] [place] [facility] [address] [id number] [place] [address]- 1638 Nov, [facility] [place] [facility] [address] [id number] [place] [address]- 7648 Nov, [facility] [place] [facility] [address] [id number] [place] [address]- 4094 Nov, [facility] [place] [facility] [address] [id number] [place] [address]- 7589 Nov, [facility] [place] [facility] [address] [id number] [place] [address]- 8391 Nov, [facility] [place] [facility] [address] [id number] [place] [address]- 2672 Nov, [facility] [place] [facility] [address] [id number] [place] [address]- 7397 Nov, [facility] [place] [facility] [address] [id number] [place] [address]- 5699 Nov, [facility] [place] [facility] [address] [id number] [place] [address]- 5799 Nov, [facility] [place] [facility] [address] [id number] [place] [address]- 4645 Oct, [facility] [place] [facility] [address] [id number] [place] [address]- 1314 Oct, [facility] [place] [facility] [address] [id number] [place] [address]- 6534 Oct, [facility] [place] [facility] [address] [id number] [place] [address]- 0586 Oct, [facility] [place] [facility] [address] [id number] [place] [address]- 3899 Oct, [facility] [place] [facility] [address] [id number] [place] [address]- 9807 Oct, [facility] [place] [facility] [address] [id number] [place] [address]- 2644 Oct, [facility] [place] [facility] [address] [id number] [place] [address]- 6027 Oct, [facility] [place] [facility] [address] [id number] [place] [address]- 6495 Oct, [facility] [place] [facility] [address] [id number] [place] [address]- 3504 Oct, [facility] [place] [facility] [address] [id number] [place] [address]- 2532 Oct, [facility] [place] [facility] [address] [id number] [place] [address]- 7725 Oct, [facility] [place] [facility] [address] [id number] [place] [address]- 2940 Oct, [facility] [place] [facility] [address] [id number] [place] [address]- 0285 Oct, [facility] [place] [facility] [address] [id number] [place] [address]- 2850 Oct, [facility] [place] [facility] [address] [id number] [place] [address]- 7004 Oct, [facility] [place] [facility] [address] [id number] [place] [address]- 3873 Oct, [facility] [place] [facility] [address] [id number] [place] [address]- 6031 Sep, [facility] [place] [facility] [address] [id number] [place] [address]- 2497 Sep, [facility] [place] [facility] [address] [id number] [place] [address]- 6913 Sep, [facility] [place] [facility] [address] [id number] [place] [address]- 5641 20 Sep, 2013 [facility] [place] [facility] [address] [id number] [place] [address]- 9195 18 Sep, 2013 [facility] [place] [facility] [address] [id number] [place] [address]- 7078 18 Sep, 2013 [facility] [place] [facility] [address] [id number] [place] [address]- 4309 17 Sep, 2013 [facility] [place] [facility] [address] [id number] [place] [address]- 3036 17 Sep, 2013 [facility] [place] [facility] [address] [facility] [id number] [place] [address]- 5936 Sep, [facility] [place] [facility] [address] [id number] [place] [address]- 2849 Sep, [facility] [place] [facility] [address] [id number] [place] [address]- 6023 Sep, [facility] [place] [facility] [address] [facility] [id number] [place] [address]- 1401 Sep, [facility] [place] [facility] [address] [id number] [place] [address]- 7082 Sep, [facility] [place] [facility] [address] [id number] [place] [address]- 1707 Sep, [facility] [place] [facility] [address] [id number] [place] [address]- 2108 09 Sep, 2013 [facility] [place] [facility] [address] [id number] [place] [address]- 3855 09 Sep, 2013 [facility] [place] [facility] [address] [facility] [id number] [place] [address]- 3005 07 Sep, 2013 [facility] [place] [facility] [address] [id number] [place] [address]- 1121 Sep, [facility] [place] [facility] [address] [id number] [place] [address]- 9637 Sep, [facility] [place] [facility] [address] [id number] [place] [address]- 8611 Sep, [facility] [place] [facility] [address] [id number] [place] [address]- 1323 Sep, [facility] [place] [facility] [address] [id number] [place] [address]- 8609 Sep, [facility] [place] [facility] [address] [id number] [place] [address]- 2569 August, [facility] [place] [facility] [address] [id number] [place] [address]- 3431 August, [facility] [place] [facility] [address] [id number] [place] [address]- 9015 August, [facility] [place] [facility] [address] [id number] [place] [address]- [address], [facility] [place] [facility] [address] [id number] [place] [address]- [address] August, [facility] [place] [facility] [address] [id number] [place] [address]- 9618 August, [facility] [place] [facility] [address] [id number] [place] [address]- 5314 August, [facility] [place] [facility] [address] [id number] [place] [address]- 6439 August, [facility] [place] [facility] [address] [id number] [place] 6340 August, [facility] [place] [facility] [address] [id number] [place] [address]- 1293 August, [facility] [place] [facility] [address] [id number] [place] [address]- 3925 August, [facility] [place] [facility] [address] [id number] [place] [address]- 3901 Jul, [facility] [place] [facility] [address] [id number] [place] [address]- 4330 Jul, [facility] [place] [facility] [address] [id number] [place] [address]- 2700 Jul, [facility] [place] [facility] [address] [id number] [place] [address]- 0867 Jul, [facility] [place] [facility] [address] [id number] [place] [address]- 2640 Jul, [facility] [place] [facility] [address] [id number] [place] [address]- 6248 Jul, [facility] [place] [facility] [address] [id number] [place] [address]- 6838 Jul, [facility] [place] [facility] [address] [id number] [place] [address]- 1260 Jul, [facility] [place] [facility] [address] [id number] [place] [address]- 9372 Jul, [facility] [place] [facility] [address] [id number] [place] [address]- 3388 Jul, [facility] [place] [facility] [address] [id number] [place] [address]- 8888 16 Jul, 2013 [facility] [place] [facility] [address] [id number] [place] [address]- 6356 Jul, [facility] [place] [facility] [address] [id number] [place] [address]- 9259 Jul, [facility] [place] [facility] [address] [id number] [place] [address]- 7691 Jul, [facility] [place] [facility] [address] [id number] [place] [address]- 1883 Jul, [facility] [place] [facility] [address] [id number] [place] [address]- 4235 Jul, [facility] [place] [facility] [address] [id number] [place] [address]- 2120 Jul, [facility] [place] [facility] [address] [id number] [place] [address]- 2299 Jul, [facility] [place] [facility] [address] [id number] [place] [address]- 7577 Jul, [facility] [place] [facility] [address] [id number] [place] [address]- 9254 Jul, [facility] [place] [facility] [address] [id number] [place] [address]- 7134 Jul, [facility] [place] [facility] [address] [id number] [place] [address]- 6371 Jul, [facility] [place] [facility] [address] [id number] [place] [address]- 0250 Jul, [facility] [place] [facility] [address] [id number] [place] [address]- 5856 Jun, [facility] [place] [facility] [address] [id number] [place] [address]- 3473 Jun, [facility] [place] [facility] [address] [id number] [place] [address]- 6180 Jun, [facility] [place] [facility] [address] [id number] [place] [address]- 5985 Jun, [facility] [place] [facility] [address] [id number] [place] [address]- 5860 Jun, [facility] [place] [facility] [address] [id number] [place] [address]- 1945 Jun, [facility] [place] [facility] [address] [id number] [place] [address]- 7684 Jun, [facility] [place] [facility] [address] [id number] [place] [address]- 2354 Jun, [facility] [place] [facility] [address] [id number] [place] [address]- 9795 18 Jun, 2013 [facility] [place] [facility] [address] [id number] [place] [address]- 0391 18 Jun, 2013 [facility] [place] [facility] [address] [id number] [place] [address]- 6720 17 Jun, 2013 [facility] [place] [facility] [address] [id number] [place] [address]- 1984 17 Jun, 2013 [facility] [place] [facility] [address] [id number] [place] [address]- 1528 May, [facility] [place] [facility] [address] [id number] [place] [address]- 9720 May, [facility] [place] [facility] [address] [id number] [place] [address]- 4889 Apr, [facility] [place] [facility] [address] [id number] [place] [address]- 0968 Apr, [facility] [place] [facility] [address] [id number] [place] [address]- 5020 Apr, [facility] [place] [facility] [address] [id number] [place] [address]- 9866 Apr, [facility] [place] [facility] [address] [id number] [place] [address]- 5671 Apr, [facility] [place] [facility] [address] [id number] [place] [address]- 1196 Apr, [facility] [place] [facility] [address] [id number] [place] [address]- 0016 Apr, [facility] [place] [facility] [address] [id number] [place] [address]- 7585 Apr, [facility] [place] [facility] [address] [id number] [place] [address]- 1268 14 Apr, 2013 [facility] [place] [facility] [address] [id number] [address]- 7113 Apr, [facility] [address] [id number] [place] [address] Apr, [facility] [place] [facility] [address] [id number] [place] [address] Mar, [facility] [place] [facility] [address] [id number] [place] [address] Mar, [facility] [place] [facility] [address] [id number] [place] [address] Mar, [facility] [place] [facility] [address] [id number] [place] [address] Mar, [facility] [place] [facility] [address] [id number] [place] [address] Feb, [facility] [place] [facility] [address] [id number] [place] [address] Feb, [facility] [place] [facility] [address] [id number] [place] [address] Feb, [facility] [place] [facility] [address] [id number] [place] [address] Feb, [facility] [place] [facility] [address] [id number] [place] [address] Feb, [facility] [place] [facility] [address] [id number], [place] [address] Feb, [facility] [place] [facility] [address] [id number], [place] [address] Feb, [facility] [place] [facility] [address] [id number], [place] [address] Feb, [facility] [place] [facility] [address] [id number], [place] [address] Feb, [facility] [place] [facility] [address] [id number] [place] [address] 67[address] Feb, [facility] [place] [facility] [address] [id number] [place] [address]- [address] 02 Feb, 2013 [facility] [place] [facility] [address] [id number] [place] [address] Jan, 2012 [facility] [place] [facility] [address] [id number] [place] [address] Jan, [facility] [place] [facility] [address] [id number] [place] [address] Jan, 2012 [facility] [place] [facility] [address] [id number] [place] [address]- 69[address] Jan, 2012 [facility] [place] [facility] [address] [id number] [place] [address]86 Jan, [facility] [place] [facility] [address] [id number] [place] [address]448 Jan, [facility] [place] [facility] [address] [id number] [place] [address]- 36[address] Jan, [facility] [address] [id number] [place] [address]- 115[address] 02 Jan, 2013 [facility] [place] [facility] [address] [id number] [place] [address]- 3268 30 Sep, 2012 [facility] [place] [facility] [address] [id number] [place] [address] 3865 25 Sep, 2012 [facility] [place] [facility] [address] [id number] [place] [address]49 18 Sep, 2012 [facility] [place] [facility] [address] [id number] [place] [address]- 2545 17 Sep, 2012 [facility] [place] [facility] [address] [id number] [place] [address] 2542 17 Sep, 2012 [facility] [place] [facility] [address] [id number] [place] [address]- [address]41 16 Sep, 2012 [facility] [place] [facility] [address] [id number] [place] [address]- [address]48 13 Dec, 2012 [facility] [place] [facility] [address] [id number] [place] [address]- [address]209 11 Dec, 2012 [facility] [place] [facility] [address] [id number] [place] [address]- 1062 05 Dec, 2012 [facility] [place] [facility] [address] [id number] [place] [address]- 4189 04 Dec, 2012 [facility] [place] [facility] [address] [id number] [place] [address] 5781 30 Nov, 2012 [facility] [place] [facility] [address] [id number] [place] [address]- 16[address] Nov, [facility] [place] [facility] [address] [id number] [place] [address] 6[address] Nov, [facility] [place] [facility] [address] [id number] [place] [address]- 6691 Nov, [facility] [place] [facility] [address] [id number] [place] [address]- 9[address] Nov, [facility] [place] [facility] [address] [id number] [place] [address]- 8066 Nov, [facility] [place] [facility] [address] [id number] [place] [address] 4291 Nov, [facility] [place] [facility] [address] [id number] [place] [address]- 0892 Oct, [facility] [place] [facility] [address] [id number] [place] [address] 5408 Oct, [facility] [place] [facility] [address] [id number] [place] [address]- 1276 Oct, [facility] [place] [facility] [address] [id number] [place] [address]- 5348 Oct, [facility] [place] [facility] [address] [id number] [place] [address]- 4656 15 Oct, 2012 [facility] [place] [facility] [address] [id number] [place] [address]- 4949 Oct, [facility] [address] [id number] [place] [address]- 8674 28 Sep, 2012 [facility] [place] [facility] [address] [id number] [place] [address]- 2195 Sep, [facility] [address] [id number] [place] [address]- 0870 Sep, [facility] [place] [facility] [address] [id number] [place] [address]- 0090 14 Sep, 2012 [facility] [address] [id number] [place] [address]- 4611 13 Sep, 2012 [facility] [address] [id number] [place] [address]- [address]57 Sep, [facility] [address] [id number] [place] [address] 0654 Sep, [facility] [address] [id number] [place] [address]- 7807 Sep, [facility] [address] [id number] [place] [address]- 0138 Sep, [facility] [address] [id number] [place] [address] 3452 August, [facility] [address] [id number] [place] [address] 2489 August, [facility] [place] [facility] [address] [id number] [place] [address]- 6646 August, [facility] [place] [facility] [address] [id number] [place] [address]- 6908 August, [facility] [place] [facility] [address] [id number] [place] [address]- 1797 August, [facility] [place] [facility] [address] [id number] [place] [address]- 1225 August, [facility] [place] [facility] [address] [id number] [place] [address]- 3766 August, [facility] [address] [id number] [place] [address]- 9566 August, [facility] [address] [id number] [place] [address]- 54[address] Jul, [facility] [address] [id number] [place] [address]- [address] Jul, [facility] [address] [place] [id number] Jul [facility] [address] [id number] [place] [address]- 4140 Jun, [facility] [address] [id number] [place] [address]- 3066 Jun, [facility] [address] [id number] [place] [address]- 6113 Jun, [facility] [address] [id number] [place] [address]- 1345 Jun, [facility] [address] [id number] [place] [address]- 7188 Jun, [facility] [address] [facility] [id number] [place] [address]- 9014 Jun, [facility] [address] [id number] [place] [address]- 1276 May, [facility] [address] [id number] [place] [address]- 2546 May, [facility] [address] [id number] [place] [address]- 2546 May, [facility] [address] [id number] [place] [address]- 2546 May, [facility] [address] [id number] [place] [address]- 1889 May, [facility] [address] [id number] [place] [address]- 5946 Apr, [facility] [place] [facility] [address] [id number] [place] [address]- 5873 Apr, [facility] [place] [facility] [address] [id number] [place] [address] Apr, [facility] [place] [facility] [address] [id number] [place] [address] Apr, [facility] [address] [id number] [place] [address] Apr, [facility] [address] [id number] [place] [address] Apr, [facility] [address] [id number] [place] [address] Mar, [facility] [place] [facility] [address] [id number] [place] [address] Mar, [facility] [place] [facility] [address] [id number] [place] [address] Mar, [facility] [place] [facility] [address] [id number] [place] [address] Mar, [facility] [place] [facility] [address] [id number] [place] [address] Mar, [facility] [place] [facility] [address] [id number], [place] [address] 18 Mar, 2012 [facility] [place] [facility] [address] [id number] [place] [address]89 18 Mar, 2012 [facility] [place] [facility] [address] [id number] [place] [address] Mar, [facility] [place] [facility] [address] [id number] [place] 10 Mar, 2012 [facility] [place] [facility] [address] [id number] [place] [address] 05 Mar, 2012 [facility] [place] [facility] [address] [id number] [place] [address]187 05 Mar, 2012 [facility] [place] [facility] [address] [id number] [place] [address] Feb, [facility] [place] [facility] [address] [id number] [place] [address] Feb, [facility] [place] [facility] [address] [id number] [place] [address] Feb, [facility] [place] [facility] [address] [id number] [place] [address]183 Feb, [facility] [place] [facility] [address] [id number] [place] [address] Feb, [facility] [place] [facility] [address] [id number] [place] [address] Feb, [facility] [place] [facility] [address] [id number] [place] [address] 34[address] Feb, [facility] [place] [facility] [address] [id number] [place] [address] Feb, [facility] [place] [facility] [address] [facility] [id number] [place] [address] Feb, [facility] [place] [facility] [address] [id number] [place] [address] 7584 Feb, [facility] [place] [facility] [address] [id number], [place] [address] Feb, [facility] [place] [facility] [address] [id number] [place] [address] 240[address] Jan, [facility] [place] [facility] [address] [facility] [id number] [place] [address] Jan, [facility] [place] [facility] [address] [facility] [id number], [place] [address] Jan, [facility] [place] [facility] [address] [id number] [place] [address]783 Jan, [facility] [place] [facility] [address] [id number] [place] [address] Jan, [facility] [place] [facility] [address] [id number] [place] [address]476 Jan, [facility] [place] [facility] [address] [id number] [place] [address] Jan, [facility] [place] [facility] [address] [id number] [place] [address] 24 Dec, 2011 [facility] [place] [facility] [address] [id number] [place] [address] 7424 17 Dec, 2011 [facility] [place] [facility] [address] [id number] [place] [address]479 13 Dec, 2011 [facility] [place] [facility] [address] [id number] [place] [address]- 2878 12 Dec, 2011 [facility] [place] [facility] [address] [id number] [place] [address] 236[address] Nov, [facility] [place] [facility] [address] [id number] [place] [address] Nov, [facility] [place] [facility] [address] [id number] [place] [address] 17 Nov, 2011 [facility] [place] [facility] [address] [id number] [place] [address]- 9787 15 Nov, 2011 [facility] [place] [facility] [address] [id number] [place] [address] 14 Nov, 2011 [facility] [place] [facility] [address] [id number] [place] [address]- 9014 13 Nov, 2011 [facility] [place] [facility] [address] [id number] [place] [address]- 4977 10 Nov, 2011 [facility] [place] [facility] [address] [id number] [place] [address]654 Nov, [facility] [place] [facility] [address] [id number] [place] [address] 8106 Nov, [facility] [place] [facility] [address] [id number] [place] [address]453 Nov, [facility] [place] [facility] [address] [id number] [place] [address] 38[address] Nov, [facility] [place] [facility] [address] [id number] [place] [address]- 8661 Nov, [facility] [place] [facility] [address] [id number] [place] [address]- 6233 Nov, [facility] [place] [facility] [address] [id number] [place] [address] 56[address] Oct, [facility] [place] [facility] [address] [id number] [place] [address] 4849 Oct, [facility] [place] [facility] [address] [id number] [place] [address] Oct, [facility] [place] [facility] [address] [id number] [place] [address] 1712 Oct, [facility] [place] [facility] [address] [id number] [place] [address]- 8700 Oct, [facility] [place] [facility] [address] [id number] [place] [address] Oct, [facility] [place] [facility] [address] [id number] [place] [address] Oct, [facility] [place] [facility] [address] [id number] [place] [address]235 Oct, [facility] [place] [facility] [address] [id number] [place] [address] 9395 Oct, [facility] [place] [facility] [address] [id number] [place] [address]841 Sep, [facility] [place] [facility] [address] [id number] [place] [address] 4184 Sep, [facility] [address] [id number] [place] [address] 0630 Sep, [facility] [place] [facility] [address] [id number] [place] [address]- 4[address] Sep, [facility] [address] [id number] [place] [address] 2893 Sep, [facility] [place] [facility] [address] [id number] [place] [address]- 8937 Sep, [facility] [address] [id number] [place] [address]- 5865 Sep, [facility] [address] [id number] [place] [address] 8563 Sep, [facility] [address] [id number] [place] [address]- 7740 August, [facility] [address] [id number] [place] [address]- [address] August, [facility] [address] [id number] [place] [address] August, [facility] [address] [id number] [place] [address]- 1352 August, [facility] [place] [facility] [address] [id number] [place] [address]- 54[address] August, [facility] [address] [id number] [place] [address]- 2770 August, [facility] [place] [facility] [address] [id number] [place] [address]- 7747 August, [facility] [place] [facility] [address] [id number] [place] [address]- 3721 August, [facility] [address] [id number] [place] [address] August, [facility] [address] [facility] [id number] [place] [address] August, [facility] [address] [facility] [id number], [place] [address] August, [facility] [address] [facility] [id number], [place] [address] August, [facility] [address] [facility] [id number], [place] [address] Oct, IMMUNIZATIONS No Known Immunizations SOCIAL HISTORY Never Assessed REASON FOR VISIT Waiting for call back PLAN OF CARE VITAL SIGNS MEDICATIONS Unknown [...] Surgical History bladder surgery Hospitalization History [facility] for right groin pain 05/2011 Hospitalization History [facility] for wound on buttocks 08/2012 Hospitalization History Via [facility], hypoxia secondary to pneumonia 12/02-12/09 Hospitalization History Pneumonia, elevated CO2 on Bipap was in ICU 08/2013 Hospitalization History Hypoxia, Exacerbation COPD, Chest pain 09/05/15 Hospitalization History [place] ideations-[place] 12/28 Hospitalization History hypoxia--[facility] 02/13/2016 Hospitalization History shortness of breath at june 2016 Hospitalization History Shortness of breath at august 2016 Hospitalization History SOB, chest pain at 12/2016
--- OUTSIDE RECORDS SUMMARY | 2017-11-24 18:01 | XMS REPORT ---
Author Author JIMENA ZAINAB [facility] Address [address] [place] [address] Care Team Providers Care Logistical Engineer Name Role Phone KELSEY HESSY Unavailable PROBLEMS Type Condition ICD9-CM Code [id number] Code Onset Dates Condition Status SNOMED Code Problem Primary insomnia F51.01 Active 712878311 Problem Type 2 diabetes mellitus with hyperglycemia E11.65 Active 22649985 Problem Major depressive disorder, recurrent, unspecified F33.9 Active 774356078 Problem Acute and chronic respiratory failure with hypoxia J96.21 Active [id number] Problem Microalbuminuria R80.9 Active 170440001 Problem Dysphagia, unspecified type R13.10 Active 73746965 Problem 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 Active 953090818120 Problem Morbid obesity with alveolar hypoventilation E66.2 Active 277419492 Problem Chronic tension-type headache, intractable G44.221 Active 412052020 Problem Type 2 diabetes mellitus with diabetic polyneuropathy E11.42 Active 40120527 Problem MRSA (methicillin resistant Staphylococcus aureus) A49.02 Active 805748649 Problem Recurrent cellulitis L03.90 Active 427348762 Problem Chronic diarrhea K52.9 Active 565514599 Problem Chronic nausea R11.0 Active 165945190 Problem Gastroesophageal reflux disease, esophagitis presence not specified K21.9 Active 409270154 Problem Tinnitus of both ears H93.13 Active 5728226154605 Problem Essential hypertension I10 Active 58320440 Problem Anxiety F41.9 Active 88381327 Problem Lymphedema I89.0 Active 707850199 Problem Hypertriglyceridemia E78.1 Active 183896188 Problem Meralgia paresthetica, unspecified laterality G57.10 Active 72431852 Problem Obstructive sleep apnea G47.33 Active 10873721 Problem Low back pain M54.5 Active 125851565 ALLERGIES No Information SOCIAL HISTORY Never Assessed [...] Surgical History bladder surgery Hospitalization History [facility] for right groin pain 05/2011 Hospitalization History [facility] for wound on buttocks 08/2012 Hospitalization History [facility], hypoxia secondary to pneumonia 12/02-12/09 Hospitalization History Pneumonia, elevated CO2 on Bipap was in ICU 08/2013 Hospitalization History Hypoxia, Exacerbation COPD, Chest pain 09/05/15 Hospitalization History [place] ideations-[place] 12/28 Hospitalization History hypoxia--[facility] 02/13/2016 Hospitalization History shortness of breath at june 2016 Hospitalization History Shortness of breath at august 2016
--- OUTSIDE RECORDS SUMMARY | 2017-11-24 18:03 | XMS REPORT ---
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 [facility] [id number] [place] [address] 26476- 0055 14 Dec, 2014 [facility] [address] 87655- 0491 Dec, Affective disorder 296.90 [facility] [address], [place] [address] 2546 04 Dec, 2014 [facility] [address], [place] [address] 2546 Dec, 2014 [facility] [address], [place] [address] 2546 Dec, 2014 [facility] [id number] [place] [address] 39377 2546 Dec, 2014 [facility] [id number] [place] [address] 17381- 7915 Nov, Affective disorder 296.90 [facility] [id number] [place] [address] 90767 254 Nov, [facility] [id number] [place] [address] 06687 2547 Nov, Affective disorder 296.90 [facility] [address] [address] 2546 Nov, Diarrhea 787.91 [facility] [id number] [place] [address] 32954 254 Nov, [facility] [address], [place] [address] 2546 Nov, Diarrhea 787.91 [facility] [id number] [place] [address] 51132 2546 Nov, Diarrhea 787.91 and Hyperlipidemia 272.4 [facility] [id number] [place] [address] 54010 2546 Nov, Diarrhea 787.91 [facility] [address], [place] [address] 2546 Nov, Affective disorder 296.90 [facility] [address], [place] [address]- 3343 Nov, Affective disorder 296.90 [facility] [address], [place] [address]- 6893 Nov, Affective disorder 296.90 [facility] [address], [place] [address]- 0974 Nov, [facility] [address], [place] [address]- 6711 Nov, [facility] [address], [place] [address]- 2011 Nov, [facility] [id number] [place] [address] 90309- 0755 Nov, Episodic mood disorder 296.90 [facility] [address], [place] [address]- 9765 Nov, [facility] [id number] [place] [address] 22782- 6070 Nov, [facility] [address], [place] [address]- 1242 Nov, [facility] [id number] [place] [address] 13611- 0537 Nov, [facility] [address], [place] [address]- 8776 Nov, [facility] [id number] [place] [address] 49500- 8429 Nov, Lymphedema 457.1 ; Hyperlipidemia 272.4 ; Essential hypertension, benign 401.1 and Numbness of toes 782.0 [facility] [address], [place] [address]- 2880 Nov, Episodic mood disorder 296.90 [facility] [address], [place] [address]- 4369 Oct, [facility] [address], [place] [address]- 6600 Oct, 2014 [facility] [address] [facility] [place] [id number] [place] [address]- 3729 15 Oct, 2014 [facility] [place] [facility] [address] [facility] [place] [id number] [place] [address]- 7529 Oct, 2014 [facility] [address] [facility] [place] [id number] [place] [address]- 7254 14 Oct, 2014 [facility] [address] [facility] [place] [id number] [place] [address]- 1956 Oct, 2014 [facility] [address] [facility] [place] [id number] [place] [address]- 5088 Oct, 2014 [facility] [address] [facility] [place] [id number] [place] [address]- 4972 Oct, 2014 [facility] [address] [facility] [place] [id number] [place] [address]- 4856 Oct, Episodic mood disorder 296.90 [facility] [address] [facility] [place] [id number] [place] [address]- 1995 30 Sep, 2014 [facility] [address] [facility] [place] [id number] [place] [address]- 6379 Sep, [facility] [address] [facility] [place] [id number] [place] [address]- 8794 Sep, [facility] [address] [facility] [place] [id number] [place] [address]- 5734 Sep, [facility] [place] [facility] [address] [facility] [place] [id number] [place] [address]- 6097 Sep, [facility] [place] [facility] [address] [facility] [place] [id number] [place] [address]- 2958 Sep, Episodic mood disorder 296.90 [facility] [place] [facility] [address] [facility] [place] [id number] [place] [address]- 6408 Sep, Unspecified episodic mood disorder 296.90 [facility] [address] [facility] [place] [id number] [place] [address]- 2754 Sep, [facility] [address], [place] [address]- 6606 Sep, [facility] [id number] [place] [address] 79929- 5750 Sep, Episodic mood disorder 296.90 [facility] [id number] [place] [address] 15899- 9863 Sep, [facility] [id number] [place] [address] 94350- 3449 Sep, [facility] [id number] [place] [address] 54271- 6549 Sep, [facility] [id number] [place] [address] 10684- 0110 Sep, Hematemesis 578.0 and Vomiting 787.03 [facility] [id number] [place] [address] 05217- 9697 Sep, Episodic mood disorder 296.90 [facility] [id number] [place] [address] 95501- 1589 Sep, [facility] [id number] [place] [address] 14644- 2499 Sep, [facility] [address], [place] [address]- 3204 Sep, Diabetes mellitus without mention of complication, type II or unspecified type, not stated as uncontrolled 250.00 and Other chronic pain 338.29 [facility] [address], [place] [address]- 6459 05 Sep, 2014 Episodic mood disorder 296.90 [facility] [id number] [place] [address] 71968- 0990 Sep, [facility] [address], [place] [address]- 5671 Sep, Episodic mood disorder 296.90 [facility] [id number] [address]- 3408 Sep, [facility] [id number] [address]- 4893 August, [facility] [id number], [place] [address]- 9460 August, [facility] [address], [place] [address]- 6773 August, Episodic mood disorder 296.90 [facility] [id number] [address]- 6887 August, [facility] [address], [place] [address]- 9680 August, Unspecified episodic mood disorder 296.90 [facility] [address], [place] [address]- 8577 August, Vomiting 787.03 [facility] [address], [place] [address]- 9599 August, [facility] [address], [place] [address]- 8318 August, [facility] [address], [place] [address]- 1057 August, [facility] [id number], [place] [address]- 9159 August, [facility] [id number], [place] [address]- 4667 August, [facility] [id number] [address]- 6211 Jul, [facility] [id number], [place] [address]- 6624 Jul, [facility] [id number], [place] [address]- 9945 Jul, [facility] [address] [place] [address]- 4184 30 Jun, 2014 [facility] [place] [facility] [address] [id number] [place] [address] 30 Jun, 2014 [facility] [place] [facility] [address] [id number] [place] [address] Jun, [facility] [place] [facility] [address] [id number] [place] [id number] Jun, 2014 [facility] [place] [facility] [address] [id number] [place] [address] Jun, [facility] [place] [facility] [address] [id number] [place] [address] Jun, [facility] [place] [facility] [address] [id number] [place] [address] Jun, [facility] [place] [facility] [address] [id number] [place] [address] Jun, [facility] [place] [facility] [address] [id number] [place] [address] Jun, [facility] [place] [facility] [address] [id number] [place] [address] Jun, [facility] [place] [facility] [address] [id number] [place] [address] Jun, [facility] [place] [facility] [address] [id number] [place] [address] Jun, [facility] [place] [facility] [address] [id number] [place] [address] Jun, [facility] [place] [facility] [address] [id number] [place] [address] Jun, [facility] [place] [facility] [address] [id number] [place] [address] Jun, [facility] [place] [facility] [address] [id number] [place] [address] Jun, [facility] [place] [facility] [address] [id number] [place] [address] 23 Jun, 2014 [facility] [place] [facility] [address] [id number] [place] [address] 23 Jun, 2014 [facility] [place] [facility] [address] [id number] [place] [address]- [address] 23 Jun, 2014 [facility] [place] [facility] [address] [id number] [place] [address]- [address] 21 Jun, 2014 [facility] [place] [facility] [address] [id number] [place] [address] 21 Jun, 2014 [facility] [place] [facility] [address] [id number] [place] [address] 20 Jun, 2014 [facility] [place] [facility] [address] [id number] [place] [address] 20 Jun, 2014 [facility] [place] [facility] [address] [id number] [place] [address]- [address] 20 Jun, 2014 [facility] [place] [facility] [address] [id number] [place] [address] 20 Jun, 2014 [facility] [place] [facility] [address] [id number] [place] [address] 19 Jun, 2014 [facility] [place] [facility] [address] [id number] [place] [address] 19 Jun, 2014 [facility] [place] [facility] [address] [id number] [place] [address] 18 Jun, 2014 [facility] [place] [facility] [address] [id number] [place] [address] 18 Jun, 2014 [facility] [place] [facility] [address] [id number] [place] [address] 3922 17 Jun, 2014 [facility] [place] [facility] [address] [id number] [place] [address] 9007 17 Jun, 2014 [facility] [place] [facility] [address] [id number] [place] [address]- 3386 16 Jun, 2014 [facility] [place] [facility] [address] [id number] [place] [address]- 0641 16 Jun, 2014 [facility] [place] [facility] [address] [id number] [place] [address]- 8272 16 Jun, 2014 [facility] [place] [facility] [address] [id number] [place] [address]- 1621 16 Jun, 2014 [facility] [place] [facility] [address] [id number] [place] [address]- 4045 16 Jun, 2014 [facility] [place] [facility] [address] [id number] [place] [address]- 3426 Jun, [facility] [place] [facility] [address] [id number] [place] [address]- 3654 Jun, [facility] [place] [facility] [address] [id number] [place] [address]- 6987 Jun, [facility] [place] [facility] [address] [id number] [place] [address]- 3949 Jun, [facility] [place] [facility] [address] [id number] [place] [address]- 9382 Jun, [facility] [place] [facility] [address] [id number] [place] [address]- 7259 Jun, [facility] [place] [facility] [address] [id number] [place] [address]- 7658 Jun, [facility] [place] [facility] [address] [id number] [place] [address]- 8192 Jun, 2014 [facility] [place] [facility] [address] [id number] [place] [address]- 0797 Jun, [facility] [place] [facility] [address] [id number] [place] [address]- 8030 Jun, [facility] [place] [facility] [address] [id number] [place] [address]- 8385 Jun, [facility] [place] [facility] [address] [id number] [place] [address]- 5241 05 Jun, 2014 [facility] [place] [facility] [address] [id number] [place] [address]- 4800 Jun, [facility] [place] [facility] [address] [id number] [place] [address]- 2275 Jun, [facility] [place] [facility] [address] [id number] [place] [address]- 8094 Jun, [facility] [place] [facility] [address] [id number] [place] [address]- 9374 Jun, [facility] [place] [facility] [address] [id number] [place] [address]- 1674 Jun, [facility] [place] [facility] [address] [facility] [id number] [place] [address]- 6950 Jun, [facility] [place] [facility] [address] [id number] [place] [address]- 7545 Jun, [facility] [place] [facility] [address] [facility] [place] [id number] [place] [address]- 4689 Jun, [facility] [place] [facility] [address] [id number] [place] [address]- 4900 Jun, [facility] [place] [facility] [address] [facility] [place] [id number] [place] [address]- 7668 May, [facility] [place] [facility] [address] [id number] [place] [address]- 2934 May, [facility] [place] [facility] [address] [id number] [place] [address]- 4478 May, [facility] [place] [facility] [address] [id number] [place] [address]- 6183 May, [facility] [place] [facility] [address] [facility] [place] [facility] [id number] [place] [address]- 9135 May, [facility] [place] [facility] [address] [id number] [place] [address]- 8786 b, 2014 [facility] [place] [facility] [address] [facility] [place] [id number] [place] [address]- 2838 20 May, 2014 [facility] [place] [facility] [address] [facility] [place] [id number] [place] [address]- 2266 20 May, 2014 [facility] [place] [facility] [address] [facility] [place] [id number] [place] [address]- 7871 20 May, 2014 [facility] [place] [facility] [address] [facility] [place] [id number] [place] [address]- 2581 20 May, 2014 [facility] [place] [facility] [address] [facility] [place] [id number] [place] [address]- 8349 18 May, 2014 [facility] [place] [facility] [address] [facility] [place] [id number] [place] [address]- 4162 18 May, 2014 [facility] [place] [facility] [address] [id number] [place] [address]- 1641 13 May, 2014 [facility] [place] [facility] [address] [facility] [place] [facility] [id number] [place] [address]- 0551 13 May, 2014 [facility] [place] [facility] [address] [facility] [place] [facility] [id number] [place] [address]- 6934 11 May, 2014 [facility] [place] [facility] [address] [facility] [place] [id number] [place] [address]- 5795 May, 2014 [facility] [place] [facility] [address] [facility] [id number] [place] [address]- 4476 May, 2014 [facility] [place] [facility] [address] [facility] [place] [id number] [place] [address]- 2545 11 May, 2014 [facility] [place] [facility] [address] [facility] [id number] [place] [address]- 1951 09 May, 2014 [facility] [place] [facility] [address] [facility] [place] [facility] [id number], [place] [address]- 2065 09 May, 2014 [facility] [place] [facility] [address] [id number] [place] [address] 1330 May, 2014 [facility] [place] [facility] [address] [id number] [place] [address]- 4276 May, [facility] [place] [facility] [address] [id number] [place] [address]- 7306 May, [facility] [place] [facility] [address] [id number] [place] [address]- 9004 May, 2014 [facility] [place] [facility] [address] [id number] [place] [address]- 3778 May, 2014 [facility] [place] [facility] [address] [id number] [place] [address]- 9249 May, [facility] [place] [facility] [address] [id number] [place] [address]- 9842 May, [facility] [place] [facility] [address] [id number] [place] [address]- 1200 Apr, [facility] [place] [facility] [address] [id number] [place] [address]- 0800 Apr, [facility] [place] [facility] [address] [id number] [place] [address]- 8259 Apr, [facility] [place] [facility] [address] [id number] [place] [address]- 2568 Apr, [facility] [place] [facility] [address] [id number], [place] [address]- 3797 Apr, [facility] [place] [facility] [address] [id number], [place] [address]- 6031 Apr, [facility] [place] [facility] [address] [id number] [place] [address]- 5046 Apr, [facility] [place] [facility] [address] [id number] [place] [address]- 1894 Apr, [facility] [place] [facility] [address] [id number] [place] [address]- 6588 Apr, [facility] [place] [facility] [address] [id number] [place] [address]- 1942 15 Apr, 2014 [facility] [address] [id number] [place] [address]- 3727 Apr, [facility] [address] [id number] [place] [address]- 2916 Apr, [facility] [address] [id number] [place] [address]- 4537 Apr, [facility] [address] [id number] [place] [address]- 0426 Apr, [facility] [address] [id number] [place] [address]- 9989 Apr, [facility] [address] [id number] [place] [address]- 4465 Apr, [facility] [address] [id number] [place] [address]- 3601 Apr, [facility] [address] [id number] [place] [address]- 8940 Apr, [facility] [address] [id number] [place] [address]- 2567 Apr, [facility] [address] [id number] [place] [address]- 4713 Apr, [facility] [address] [id number] [place] [address]- 9998 Mar, [facility] [address] [id number] [place] [address]- 1401 Mar, [facility] [place] [facility] [address] [id number] [place] [address]- 0104 Mar, [facility] [place] [facility] [address] [id number] [place] [address]- 8014 Mar, [facility] [address] [id number] [place] [address]- 2448 Mar, [facility] [place] [facility] [address] [id number] [place] [address]- 4461 Mar, [facility] [place] [facility] [address] [id number] [place] [address]- 6529 Mar, [facility] [place] [facility] [address] [id number] [place]35 Mar, [facility] [place] [facility] [address] [id number] [place] [address]- 7905 Mar, [facility] [place] [facility] [address] [id number] [place] [address]- 9010 Mar, [facility] [place] [facility] [address] [id number] [place] [address]- 8986 Mar, [facility] [place] [facility] [address] [id number] [place] [address]- 6706 Mar, [facility] [place] [facility] [address] [id number] [place] [address]- 3896 Mar, [facility] [place] [facility] [address] [id number] [place] [address]- 5573 Mar, [facility] [place] [facility] [address] [id number] [place] [address]- 8992 Mar, [facility] [place] [facility] [address] [id number] [place] [address]- 2411 Mar, [facility] [place] [facility] [address] [id number] [place] [address]- 6394 Feb, [facility] [place] [facility] [address] [id number] [place] [address]- 5580 Feb, [facility] [place] [facility] [address] [id number] [place]081 Feb, [facility] [place] [facility] [address] [id number] [place] [address]- 9481 Feb, [facility] [place] [facility] [address] [id number], [place] [address]- 9830 20 Feb, 2014 [facility] [place] [facility] [address] [id number] [place] [address]- 1372 19 Feb, 2014 [facility] [place] [facility] [address] [id number] [place] [address]- 4284 19 Feb, 2014 [facility] [place] [facility] [address] [id number] [place] [address]- 4245 18 Feb, 2014 [facility] [place] [facility] [address] [id number] [place] [address]- 9896 18 Feb, 2014 [facility] [place] [facility] [address] [id number] [place] [address]- 0266 17 Feb, 2014 [facility] [place] [facility] [address] [id number] [place] [address]- 6410 17 Feb, 2014 [facility] [place] [facility] [address] [id number] [place] [address]- 5720 17 Feb, 2014 [facility] [place] [facility] [address] [id number] [place] [address]- 3614 17 Feb, 2014 [facility] [place] [facility] [address] [id number] [place] [address]- 8169 14 Feb, 2014 [facility] [place] [facility] [address] [id number] [place] [address]- 9018 14 Feb, 2014 [facility] [place] [facility] [address] [id number] [place] [address]- 9341 14 Feb, 2014 [facility] [place] [facility] [address] [id number] [place] [address]- 6295 14 Feb, 2014 [facility] [place] [facility] [address] [id number] [place] [address]- 0756 10 Feb, 2014 [facility] [place] [facility] [address] [id number] [place] [address]- 9082 10 Feb, 2014 [facility] [place] [facility] [address] [id number] [place] [address]- 4739 04 Feb, 2014 [facility] [place] [facility] [address] [id number] [place] [address]- 1472 Feb, [facility] [place] [facility] [address] [id number] [place] [address]- 2203 Jan, [facility] [place] [facility] [address] [id number] [place] [address]- 1799 Jan, [facility] [place] [facility] [address] [id number] [place] [address]- 9966 Jan, [facility] [place] [facility] [address] [id number] [place] [address]- 0802 Jan, [facility] [place] [facility] [address] [id number] [place] [address]- 8607 Jan, [facility] [place] [facility] [address] [id number] [place] [address]- 0582 Jan, [facility] [place] [facility] [address] [id number] [place] [address]- 3555 Jan, [facility] [place] [facility] [address] [id number] [place] [address]- 9017 Jan, [facility] [place] [facility] [address] [id number] [place] [address]- 2527 Jan, [facility] [place] [facility] [address] [id number] [place] [address]- 2201 Jan, [facility] [place] [facility] [address] [id number] [place] [address]- 6362 Jan, [facility] [place] [facility] [address] [id number] [place] [address]- 0776 Jan, [facility] [place] [facility] [address] [id number] [place] [address]- 8956 Jan, [facility] [place] [facility] [address] [id number] [place] [address]- 6784 Jan, [facility] [place] [facility] [address] [id number] [place] [address]- 6617 Jan, [facility] [place] [facility] [address] [id number] [place] [address]- 2320 15 Jan, 2014 [facility] [place] [facility] [address] [id number] [place] [address]- 3082 14 Jan, 2014 [facility] [place] [facility] [address] [id number] [place] [address]- 6789 14 Jan, 2014 [facility] [place] [facility] [address] [id number] [place] [address]- 1896 13 Jan, 2014 [facility] [place] [facility] [address] [id number] [place] [address]- 3433 Jan, [facility] [place] [facility] [address] [id number] [place] [address]- 8980 Jan, [facility] [place] [facility] [address] [id number] [place] [address]- 5825 Jan, [facility] [place] [facility] [address] [id number] [place] [address]- 5092 10 Jan, 2014 [facility] [place] [facility] [address] [id number] [place] [address]- 0563 02 Jan, 2014 [facility] [place] [facility] [address] [id number], [place] [address]- 6897 02 Jan, 2014 [facility] [place] [facility] [address] [id number], [place] [address]- 5560 25 Dec, 2013 [facility] [place] [facility] [address] [id number], [place] [address]- 4899 25 Dec, 2013 [facility] [place] [facility] [address] [id number] [place] [address]- 3764 23 Dec, 2013 [facility] [place] [facility] [address] [id number] [place] [address]- 7430 23 Dec, 2013 [facility] [place] [facility] [address] [id number] [place] [address]- 9049 19 Dec, 2013 [facility] [place] [facility] [address] [id number] [place] [address]- 8973 19 Sep, 2013 [facility] [place] [facility] [address] [id number] [place] [address]- 2316 17 Sep, 2013 [facility] [place] [facility] [address] [id number] [place] [address]- 8666 17 Sep, 2013 [facility] [place] [facility] [address] [id number] [place] [address]- 5106 09 Sep, 2013 [facility] [place] [facility] [address] [id number] [place] [address]- 5203 09 Sep, 2013 [facility] [place] [facility] [address] [id number] [place] [address]- 8129 08 Sep, 2013 [facility] [place] [facility] [address] [id number] [place] [address]- 6445 08 Sep, 2013 [facility] [place] [facility] [address] [id number] [place] [address]- 8737 04 Sep, 2013 [facility] [place] [facility] [address] [id number] [place] [address]- 9046 04 Sep, 2013 [facility] [place] [facility] [address] [id number] [place] [address]- 7918 02 Sep, 2013 [facility] [place] [facility] [address] [id number] [place] [address]- 7463 02 Sep, 2013 [facility] [place] [facility] [address] [id number] [place] [address]- 8063 Dec, 2013 [facility] [place] [facility] [address] [id number] [place] [address]- 2545 Dec, 2013 [facility] [place] [facility] [address] [id number] [place] [address]- 3838 Nov, [facility] [place] [facility] [address] [id number] [place] [address]- 2893 Nov, [facility] [place] [facility] [address] [id number] [place] [address]- 8647 Nov, [facility] [place] [facility] [address] [id number] [place] [address]- 9581 Nov, [facility] [place] [facility] [address] [id number] [place] [address]- 1208 Nov, [facility] [place] [facility] [address] [id number] [facility] [place] [address]- 5483 Nov, [facility] [place] [facility] [address] [id number] [place] [address]- 6168 Nov, [facility] [place] [facility] [address] [id number] [place] [address]- 9124 Nov, [facility] [place] [facility] [address] [id number] [place] [address]- 3111 Nov, [facility] [place] [facility] [address] [id number] [place] [address]- 5059 Nov, [facility] [place] [facility] [address] [id number] [place] [address]- 8236 Nov, [facility] [place] [facility] [address] [id number] [place] [address]- 3182 Nov, [facility] [place] [facility] [address] [id number] [place] [address]- 0360 Oct, [facility] [place] [facility] [address] [id number] [place] [address]- 1596 Oct, [facility] [place] [facility] [address] [id number] [place] [address]- 5074 Oct, [facility] [place] [facility] [address] [id number] [place] [address]- 4105 Oct, [facility] [place] [facility] [address] [id number] [place] [address]- 7294 Oct, [facility] [place] [facility] [address] [id number] [place] [address]- 4788 Oct, [facility] [place] [facility] [address] [id number] [place] [address]- 2584 Oct, [facility] [place] [facility] [address] [id number] [place] [address]- 3092 Oct, [facility] [place] [facility] [address] [id number] [place] [address]- 8399 Oct, [facility] [place] [facility] [address] [id number] [place] [address]- 3750 Oct, [facility] [place] [facility] [address] [id number] [place] [address]- 5615 Oct, [facility] [place] [facility] [address] [id number] [place] [address]- 7601 Oct, [facility] [place] [facility] [address] [id number] [place] [address]- 6688 Oct, [facility] [place] [facility] [address] [id number] [place] [address]- 2744 Oct, [facility] [place] [facility] [address] [id number] [place] [address]- 0995 Oct, [facility] [place] [facility] [address] [id number] [place] [address]- 7622 Oct, [facility] [place] [facility] [address] [id number] [place] [address]- 9637 Oct, [facility] [place] [facility] [address] [id number] [place] [address]- 2936 Sep, [facility] [place] [facility] [address] [id number] [place] [address]- 0999 Sep, [facility] [place] [facility] [address] [id number] [place] [address] Sep, [facility] [place] [facility] [address] [id number] [place] [address] Sep, [facility] [place] [facility] [address] [id number] [place] [address] 18 Sep, 2013 [facility] [place] [facility] [address] [id number] [place] [address] 18 Sep, 2013 [facility] [place] [facility] [address] [id number] [place] [address] 17 Sep, 2013 [facility] [place] [facility] [address] [id number] [place] [address] 17 Sep, 2013 [facility] [place] [facility] [address] [id number] [place] [address] 11 Sep, 2013 [facility] [place] [facility] [address] [id number] [place] [address] Sep, [facility] [place] [facility] [address] [id number] [place] [address] Sep, [facility] [place] [facility] [address] [id number] [place] [address] Sep, [facility] [place] [facility] [address] [id number] [place] [address] Sep, [facility] [place] [facility] [address] [id number] [place] [address] Sep, [facility] [place] [facility] [address] [id number] [place] [address] Sep, [facility] [place] [facility] [address] [id number] [place] [address]83 09 Sep, 2013 [facility] [place] [facility] [address] [id number] [place] [address]- [address] 07 Sep, 2013 [facility] [place] [facility] [address] [id number] [place] [address]663 07 Sep, 2013 [facility] [place] [facility] [address] [id number] [place] [address]- 39[address] 05 Sep, 2013 [facility] [place] [facility] [address] [id number] [place] [address]- 9866 05 Sep, 2013 [facility] [place] [facility] [address] [id number] [place] [address]- [address] Sep, [facility] [place] [facility] [address] [id number] [place] [address]67 Sep, [facility] [place] [facility] [address] [id number] [place] [address] August, [facility] [place] [facility] [address] [id number] [place] [address] August, [facility] [place] [facility] [address] [id number] [place] [address] August, [facility] [place] [facility] [address] [id number] [place] [address] August, [facility] [place] [facility] [address] [id number] [place] [address] August, [facility] [place] [facility] [address] [id number] [place] [address] August, [facility] [place] [facility] [address] [id number] [place] [address] 8786 August, [facility] [place] [facility] [address] [id number] [place] [address] August, [facility] [place] [facility] [address] [id number] [place] [address] August, [facility] [place] [facility] [address] [id number] [place] [address] August, [facility] [place] [facility] [address] [id number] [place] [address] 49[address] August, [facility] [place] [facility] [address] [id number] [place] [address] Jul, [facility] [place] [facility] [address] [id number] [place] [address]36 Jul, [facility] [place] [facility] [address] [id number] [place] [address] Jul, [facility] [place] [facility] [address] [id number] [place] [address]- 7945 Jul, [facility] [place] [facility] [address] [id number] [place] [address]- [address]166 Jul, [facility] [place] [facility] [address] [id number] [place] [address] 8927 Jul, [facility] [place] [facility] [address] [id number] [place] [address] 9971 Jul, [facility] [place] [facility] [address] [id number] [place] [address] 0252 Jul, [facility] [place] [facility] [address] [id number] [place] [address]- 39[address] Jul, [facility] [place] [facility] [address] [id number] [place] [address] 18 Jul, 2013 [facility] [place] [facility] [address] [id number] [place] [address]- [address] 16 Jul, 2013 [facility] [place] [facility] [address] [id number] [place] [address]- 9684 14 Jul, 2013 [facility] [place] [facility] [address] [id number] [place] [address]- 7678 14 Jul, 2013 [facility] [place] [facility] [address] [id number] [place] [address]- 3076 Jul, [facility] [place] [facility] [address] [id number] [place] [address]- [address]257 Jul, [facility] [place] [facility] [address] [id number] [place] [address]- 6640 10 Jul, 2013 [facility] [place] [facility] [address] [id number] [place] [address]- 3825 10 Jul, 2013 [facility] [place] [facility] [address] [id number] [place] [address]- 8223 05 Jul, 2013 [facility] [place] [facility] [address] [id number] [place] [address]- 7671 Jul, [facility] [place] [facility] [address] [id number] [place] [address] Jul, [facility] [place] [facility] [address] [id number] [place] [address]- 269[address] Jul, [facility] [place] [facility] [address] [id number] [place] [address]- 9616 Jul, [facility] [place] [facility] [address] [id number] [place] [address]- [address] Jul, [facility] [place] [facility] [address] [id number] [place] [address]- 2815 Jun, [facility] [place] [facility] [address] [id number] [place] [address]- [address] Jun, [facility] [place] [facility] [address] [id number] [place] [address] 36[address] Jun, [facility] [place] [facility] [address] [id number] [place] [address]- 56[address] Jun, [facility] [place] [facility] [address] [id number] [place] [address]- 89[address] Jun, [facility] [place] [facility] [address] [id number] [place] [address]- [address] Jun, [facility] [place] [facility] [address] [id number] [place] [address]- 4148 Jun, [facility] [place] [facility] [address] [id number] [place] [address]- 2645 Jun, [facility] [place] [facility] [address] [id number] [place] [address]- [address] Jun, [facility] [place] [facility] [address] [id number] [place] [address]- 9913 Jun, [facility] [place] [facility] [address] [id number] [place] [address]- 0286 Jun, [facility] [place] [facility] [address] [id number] [place] [address]- 4119 Jun, [facility] [place] [facility] [address] [id number] [place] [address]- 9998 May, [facility] [place] [facility] [address] [id number] [place] [address]- 1266 May, [facility] [place] [facility] [address] [id number] [place] [address]- 3787 Apr, [facility] [place] [facility] [address] [id number] [place] [address]- 3751 Apr, [facility] [place] [facility] [address] [id number] [place] [address]- 2835 Apr, [facility] [place] [facility] [address] [id number] [place] [address] Apr, [facility] [place] [facility] [address] [id number] [place] [address] Apr, [facility] [place] [facility] [address] [id number] [place] [address]694 Apr, [facility] [place] [facility] [address] [id number] [place] [address]708 Apr, [facility] [place] [facility] [address] [id number] [place] [address] 7133 Apr, [facility] [place] [facility] [address] [id number] [place] [address] 30[address] Apr, [facility] [place] [facility] [address] [id number], [place] [address] Apr, [facility] [place] [facility] [address] [id number] [place] [address] 3093 Apr, [facility] [place] [facility] [address] [id number] [place] [address] 8535 Mar, [facility] [place] [facility] [address] [id number] [place] [address] 7146 Mar, [facility] [place] [facility] [address] [id number] [place] [address] Mar, [facility] [address] [id number] [place] [address] 0839 Mar, [facility] [place] [facility] [address] [id number] [place] [address] Feb, [facility] [address] [id number] [place] [address] 9409 Feb, [facility] [place] [facility] [address] [id number] [place] [address] 1447 Feb, [facility] [place] [facility] [address] [id number] [place] [address] 1995 Feb, [facility] [place] [facility] [address] [id number] [place] [address] 5026 Feb, [facility] [address] [id number] [place] [address] 6927 Feb, [facility] [place] [facility] [address] [id number] [place] [address] 2772 Feb, [facility] [place] [facility] [address] [id number] [place] [address] 0497 Feb, [facility] [place] [facility] [address] [facility] [id number] [place] [address] 7939 Feb, [facility] [place] [facility] [address] [id number] [place] [address]- 3031 Feb, [facility] [place] [facility] [address] [id number], [place] [address] 18[address] Feb, [facility] [place] [facility] [address] [id number] [place] [address] Jan, [facility] [place] [facility] [address] [id number], [place] [address] Jan, [facility] [place] [facility] [address] [id number] [address] Jan, [facility] [place] [facility] [address] [id number] [place] [address] 2798 11 Jan, 2013 [facility] [place] [facility] [address] [id number] [place] [address]- 1443 10 Jan, 2013 [facility] [place] [facility] [address] [id number] [place] [address] 3420 10 Jan, 2013 [facility] [place] [facility] [address] [id number] [place] [address] 9216 03 Jan, 2013 [facility] [place] [facility] [address] [id number] [place] [address]- 3504 02 Jan, 2013 [facility] [place] [facility] [address] [id number] [place] [address]- 8351 30 Dec, 2012 [facility] [place] [facility] [address] [id number] [place] [address]- 1382 25 Sep, 2012 [facility] [place] [facility] [address] [id number] [place] [address] 2650 18 Sep, 2012 [facility] [place] [facility] [address] [id number] [place] [address]- 4774 17 Sep, 2012 [facility] [place] [facility] [address] [id number] [place] [address]- 8676 17 Sep, 2012 [facility] [place] [facility] [address] [id number] [place] [address]- 3323 16 Sep, 2012 [facility] [place] [facility] [address] [id number] [place] [address]- 2541 13 Sep, 2012 [facility] [place] [facility] [address] [id number] [place] [address]- 9246 11 Sep, 2012 [facility] [place] [facility] [address] [id number] [place] [address]- 2544 05 Sep, 2012 [facility] [place] [facility] [address] [id number] [place] [address]- 3504 04 Sep, 2012 [facility] [place] [facility] [address] [id number] [place] [address] 5612 Nov, [facility] [place] [facility] [address] [id number] [place] [address]- 3445 Nov, [facility] [place] [facility] [address] [id number] [place] [address]- 5367 Nov, [facility] [place] [facility] [address] [id number] [place] [address]- 9578 Nov, [facility] [place] [facility] [address] [id number] [place] [address]- 0713 Nov, [facility] [place] [facility] [address] [id number] [place] [address]- 2631 Nov, [facility] [place] [facility] [address] [id number] [place] [address]- 5123 Nov, [facility] [place] [facility] [address] [id number] [place] [address]- 3887 Oct, [facility] [place] [facility] [address] [id number] [place] [address]- 1126 Oct, [facility] [place] [facility] [address] [id number] [place] [address]- 8340 Oct, [facility] [place] [facility] [address] [id number] [place] [address]- 4181 Oct, [facility] [place] [facility] [address] [id number] [place] [address]- 6805 Oct, [facility] [place] [facility] [address] [id number] [place] [address]- 0109 Oct, [facility] [place] [facility] [address] [id number] [place] [address]- 3375 Sep, [facility] [place] [facility] [address] [id number] [place] [address]- 7008 Sep, [facility] [place] [facility] [address] [id number] [place] [address]- 1074 Sep, [facility] [place] [facility] [address] [id number] [place] [address]- 7579 14 Sep, 2012 [facility] [address] [id number] [place] [address]- 8906 13 Sep, 2012 [facility] [address] [id number] [place] [address]- 8686 10 Sep, 2012 [facility] [address] [id number] [place] [address]- 9834 07 Sep, 2012 [facility] [address] [id number] [place] [address]- 8327 06 Sep, 2012 [facility] [address] [id number] [place] [address]- 6751 05 Sep, 2012 [facility] [address] [id number] [place] [address]- 2513 August, [facility] [address] [id number] [place] [address]- 3386 August, [facility] [address] [id number] [place] [address]- 8236 August, [facility] [address] [id number] [place] [address]- 0105 August, [facility] [address] [id number] [place] [address]- 2174 August, [facility] [address] [id number] [place] [address]- 1586 August, [facility] [address] [id number] [place] [address]- 2866 August, [facility] [address] [id number] [place] [address]- 7106 August, [facility] [address] [id number] [place] [address]- 1586 Jul, [facility] [address] [id number] [place] [address]- 5[address] Jul, [address] [facility] [address] [facility] [id number] Jul [facility] [address] [id number] [place] [address] Jun, [facility] [address] [id number] [place] [address]- 7556 Jun, [facility] [address] [id number] [place] [address]- 8577 Jun, [facility] [address] [id number] [place] [address]- 7143 Jun, [facility] [address] [id number] [place] [address]- 5735 Jun, [facility] [address] [id number] [place] [address]- 4304 Jun, [facility] [address] [id number] [place] [address]- 0640 May, [facility] [address] [id number] [place] [address]- 0630 May, [facility] [address] [id number] [place] [address]- 9868 May, [facility] [address] [id number] [place] [address]- 9653 May, [facility] [address] [id number] [place] [address]- 5916 May, [facility] [address] [id number] [place] [address]- 4373 Apr, [facility] [address] [id number] [place] [address]- 1366 Apr, [facility] [address] [id number] [place] [address]- 6365 Apr, [facility] [address] [id number] [place] [address]- 9508 Apr, [facility] [address] [id number] [place] [address]- 3915 Apr, [facility] [place] [facility] [address] [id number] [place] [address]- 7556 Apr, [facility] [place] [facility] [address] [id number] [place] [address]- 5406 Mar, [facility] [place] [facility] [address] [id number] [place] [address]- 4470 Mar, [facility] [place] [facility] [address] [id number] [place] [address]- 4949 Mar, [facility] [place] [facility] [address] [id number] [place] [address]- 4904 Mar, [facility] [place] [facility] [address] [id number] [place] [address]- 5166 Mar, [facility] [place] [facility] [address] [id number] [place] [address]- 2922 Mar, [facility] [place] [facility] [address] [id number] [place] [address]- 0283 Mar, [facility] [place] [facility] [address] [id number] [place] [address]- 6706 Mar, [facility] [place] [facility] [address] [id number] [place] [address]- 8792 Mar, [facility] [place] [facility] [address] [id number] [place] [address]- 8085 Mar, [facility] [place] [facility] [address] [id number] [place] [address]- 7505 Mar, [facility] [place] [facility] [address] [id number] [place] [address]- 2168 Feb, [facility] [place] [facility] [address] [id number] [place] [address]- 4978 Feb, [facility] [place] [facility] [address] [id number] [place] [address]- 9001 Feb, [facility] [place] [facility] [address] [id number] [place] [address]- 5195 Feb, [facility] [place] [facility] [address] [id number] [place] [address]- 3892 Feb, [facility] [place] [facility] [address] [id number] [place] [address]- 8827 Feb, [facility] [place] [facility] [address] [id number] [place] [address]- 2006 Feb, [facility] [place] [facility] [address] [id number] [place] Feb, [facility] [place] [facility] [address] [id number] [place] [address]- 3679 Feb, [facility] [place] [facility] [address] [id number] [place] [address]- 9913 Feb, [facility] [place] [facility] [address] [id number] [place] [address]- 0411 Feb, [facility] [place] [facility] [address] [id number] [place] [address]- 9603 Jan, [facility] [place] [facility] [address] [id number] [place] [address]- 0142 Jan, [facility] [place] [facility] [address] [id number] [place] [address]- 0827 Jan, [facility] [place] [facility] [address] [id number] [place] [address]- 1244 Jan, [facility] [place] [facility] [address] [id number] [place] 4203 Jan, [facility] [place] [facility] [address] [id number] [place] [address]- 0937 Jan, [facility] [place] [facility] [address] [id number] [place] [address]- 4321 Jan, [facility] [place] [facility] [address] [id number] [place] [address]- 5899 24 Dec, 2011 [facility] [place] [facility] [address] [id number] [place] [address]- 8004 17 Dec, 2011 [facility] [place] [facility] [address] [id number] [place] [address]- 1256 13 Dec, 2011 [facility] [place] [facility] [address] [id number] [place] [address]- 6534 12 Dec, 2011 [facility] [place] [facility] [address] [id number] [place] [address]- 8809 23 Nov, 2011 [facility] [place] [facility] [address] [id number] [place] [address]- 1023 20 Nov, 2011 [facility] [place] [facility] [address] [id number] [place] [address]- 9223 17 Nov, 2011 [facility] [place] [facility] [address] [id number] [place] [address]- 6875 15 Nov, 2011 [facility] [place] [facility] [address] [id number] [place] [address]- 8862 14 Nov, 2011 [facility] [place] [facility] [address] [id number] [place] [address]- 1374 Nov, [facility] [place] [facility] [address] [id number] [place] [address]- 0322 Nov, [facility] [place] [facility] [address] [id number] [place] [address]- 9269 Nov, [facility] [place] [facility] [address] [id number] [place] [address]- 1817 Nov, [facility] [place] [facility] [address] [id number] [place] [address]- 9610 Nov, [facility] [place] [facility] [address] [id number] [place] [address]- 9697 Nov, [facility] [place] [facility] [address] [id number] [place] [address]- 3667 Nov, [facility] [place] [facility] [address] [id number] [place] [address]- 8379 Nov, [facility] [place] [facility] [address] [id number] [place] [address]- 5973 Oct, [facility] [place] [facility] [address] [id number] [place] [address]- 8416 Oct, [facility] [place] [facility] [address] [id number] [place] [address]- 8642 Oct, [facility] [place] [facility] [address] [id number] [place] [address]- 9884 Oct, [facility] [place] [facility] [address] [id number] [place] [address]- 0620 Oct, [facility] [place] [facility] [address] [id number] [place] [address]- 1100 Oct, [facility] [place] [facility] [address] [id number] [place] [address]- 0013 Oct, [facility] [place] [facility] [address] [id number] [place] [address]- 8308 Oct, [facility] [place] [facility] [address] [id number] [place] [address]- 5076 Oct, [facility] [place] [facility] [address] [id number] [place] [address]- 7051 Sep, [facility] [place] [facility] [address] [id number] [place] [address]- 8303 Sep, [facility] [place] [facility] [address] [id number] [place] [address]- 9727 Sep, [facility] [place] [facility] [address] [id number] [place] [address]- 0484 Sep, [facility] [place] [facility] [address] [id number] [place] [address]- 1343 Sep, [facility] [place] [facility] [address] [id number] [place] [address]- 3367 Sep, [facility] [place] [facility] [address] [id number] [place] [address]- 6796 Sep, [facility] [place] [facility] [address] [id number] [place] [address]- 3636 Sep, [facility] [place] [facility] [address] [id number] [place] [address]- 1474 August, [facility] [place] [facility] [address] [id number] [place] [address]- 2293 August, [facility] [place] [facility] [address] [id number] [place] [address]- 5394 August, [facility] [place] [facility] [address] [id number] [place] [address]- 5392 August, [facility] [place] [facility] [address] [id number] [place] [address]- 1444 August, [facility] [place] [facility] [address] [id number] [place] [address]- 7290 August[facility] [place] [facility] [address] [id number] [place] [address]- 2228 August, [facility] [place] [facility] [address] [id number] [place] [address]- 7556 August, [facility] [place] [facility] [address] [id number] [place] [address]- 8113 August, [facility] [place] [facility] [address] [id number] [place] [address]- 9095 August, [facility] [place] [facility] [address] [id number] [place] 4310 August, [facility] [place] [facility] [address] [id number] [place] [address]- 0473 August, [facility] [place] [facility] [address] [id number] [place] [id number] 8586 Oct, IMMUNIZATIONS No Known Immunizations SOCIAL HISTORY Never Assessed REASON FOR VISIT usp rx PLAN OF CARE VITAL SIGNS MEDICATIONS Medication Instructions Dosage Frequency Start Date End Date Duration Status Lotrisone 1-0.05 % Externally Twice a day as needed 1 application to affected area Mar, Active Diflucan 150 MG Orally one time 1 tablet Mar, 1 dose Active Zofran 4 MG Orally TID PRN 1 tablet Mar, 30 day(s) Active RESULTS No Results [...] Surgical History bladder surgery Hospitalization History [facility] for right groin pain 05/2011 Hospitalization History [facility] for wound on buttocks 08/2012 Hospitalization History [facility], hypoxia secondary to pneumonia 12/02-12/09 Hospitalization History Pneumonia, elevated CO2 on Bipap was in ICU 08/2013 Hospitalization History Hypoxia, Exacerbation COPD, Chest pain 09/05/15 Hospitalization History suicidal ideations-[facility] 12/28 Hospitalization History hypoxia--[facility] 02/13/2016 Hospitalization History shortness of breath at june 2016 Hospitalization History Shortness of breath at august 2016 Hospitalization History SOB, chest pain at 12/2016
--- OUTSIDE RECORDS SUMMARY | 2017-11-24 18:05 | XMS REPORT ---
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 [address] 14974 2543 Nov, Affective disorder 296.90 [facility] [id number] [place] [address] 01126 2546 Nov, [facility] [id number] [address] 2546 Nov, Affective disorder 296.90 [facility] [id number] [place] [address] 70573 2546 Nov, Diarrhea 787.91 [facility] [id number] [place] [address] 53906 2546 Nov, [facility] [id number] [place] [address] 57154 2546 Nov, Diarrhea 787.91 [facility] [id number] [address] 2546 Nov, Diarrhea 787.91 and Hyperlipidemia 272.4 [facility] [id number] [address]- 5401 Nov, Diarrhea 787.91 [facility] [id number] [place] [address] 28432- 7946 Nov, Affective disorder 296.90 [facility] [id number] [place] [address] 44738- 3961 Nov, Affective disorder 296.90 [facility] [id number] [place] [address] 64589- 4746 Nov, Affective disorder 296.90 [facility] [id number] [place] [address] 98497- 3559 Nov, [facility] [id number] [place] [address] 56482- 2772 Nov, [facility] [id number] [place] [address] 86941- 0962 Nov, [facility] [id number] [place] [address] 80426- 6130 Nov, Episodic mood disorder 296.90 [facility] [id number] [place] [address] 47692- 1350 Nov, [facility] [id number] [place] [address] 87845- 6693 Nov, [facility] [id number] [place] [address] 11342- 5245 Nov, [facility] [id number] [place] [address] 23509- 5594 Nov, [facility] [id number] [place] [address] 23180- 5265 Nov, [facility] [id number] [address]- 4708 Nov, Lymphedema 457.1 ; Hyperlipidemia 272.4 ; Essential hypertension, benign 401.1 and Numbness of toes 782.0 [facility] [id number] [place] [address]- 6638 Nov, Episodic mood disorder 296.90 [facility] [id number] [place] [address]- 4236 Oct, 2014 [facility] [id number] [place] [address]- 6336 Oct, 2014 [facility] [id number] [address]- 5868 Oct, 2014 [facility] [id number] [place] [address]- 8734 Oct, 2014 [facility] [id number] [place] [address]- 0608 Oct, 2014 [facility] [id number] [address]- 6732 Oct, 2014 [facility] [id number] [address]- 4562 Oct, [facility] [id number] [address]- 7152 Oct, [facility] [id number] [address]- 4335 Oct, Episodic mood disorder 296.90 [facility] [id number] [address] 2543 Sep, [facility] [id number] [address]- 2549 Sep, [facility] [id number] [address]- 4085 Sep, [facility] [id number] [address]- 2540 Sep, [facility] [id number] 0601 Sep, [facility] [id number] [address]- 8458 Sep, Episodic mood disorder 296.90 [facility] [id number] [address]- 9273 Sep, Unspecified episodic mood disorder 296.90 [facility] [id number] [address]- 9674 Sep, [facility] [id number] [place] [address] 36975- 8665 Sep, [facility] [id number] [place] [address] 00857- 4753 Sep, Episodic mood disorder 296.90 [facility] [id number] [address]- 7933 Sep, [facility] [id number] [place] [address] 88465- 6001 Sep, [facility] [id number] [address]- 3604 Sep, [facility] [id number] [place] [address] 34413- 3642 Sep, Hematemesis 578.0 and Vomiting 787.03 [facility] [id number] [address]- 8415 Sep, Episodic mood disorder 296.90 [facility] [id number] [address]- 3844 08 Sep, 2014 [facility] [id number] [address]- 7399 Sep, [facility] [id number] [address]- 8842 05 Sep, 2014 Diabetes mellitus without mention of complication, type II or unspecified type, not stated as uncontrolled 250.00 and Other chronic pain 338.29 [facility] [id number] [address]- 6050 Sep, Episodic mood disorder 296.90 [facility] [id number]- 2337 Sep, [facility] [id number]- 8575 Sep, Episodic mood disorder 296.90 [facility] [id number] 2298 Sep, [facility] [id number], [place] [address]- 2948 August, [facility] [id number] [address]- 7394 August, [facility] [id number] [address]- 5143 August, Episodic mood disorder 296.90 [facility] [id number] [address]- 5088 August, [facility] [id number] [address]- 7759 August, Unspecified episodic mood disorder 296.90 [facility] [id number] [address]- 3845 August, Vomiting 787.03 [facility] [id number], [place] [address]- 6484 August, [facility] [id number] [address]- 0457 August, [facility] [id number]- 5955 August, [facility] [id number] 3156 August, [facility] [id number] 9185 August, [facility] [place] [facility] [address] [id number] [place] [address]- 3433 28 Jul, 2014 [facility] [place] [facility] [address] [id number] [place] [address]- 1626 14 Jul, 2014 [facility] [place] [facility] [address] [id number] [place] [address]- 1866 13 Jul, 2014 [facility] [place] [facility] [address] [id number] [place] [address]- 8109 30 Jun, 2014 [facility] [place] [facility] [address] [id number] [place] [address]- 6927 30 Jun, 2014 [facility] [place] [facility] [address] [id number] [place] [address]- 0414 30 Jun, 2014 [facility] [place] [facility] [address] [id number] [place] [address]- 0129 30 Jun, 2014 [facility] [place] [facility] [address] [id number] [place] [address]- 3373 30 Jun, 2014 [facility] [place] [facility] [address] [id number] [place] [address]- 9437 30 Jun, 2014 [facility] [place] [facility] [address] [id number] [place] [address]- 1361 30 Jun, 2014 [facility] [place] [facility] [address] [id number] [place] [address]- 0089 30 Jun, 2014 [facility] [place] [facility] [address] [id number] [place] [address]- 0916 27 Jun, 2014 [facility] [place] [facility] [address] [id number] [place] [address]- 5628 Jun, [facility] [place] [facility] [address] [id number] [place] [address]- 2906 Jun, [facility] [place] [facility] [address] [id number] [place] [address]- 6676 Jun, [facility] [place] [facility] [address] [id number] [place] [address]- 1237 Jun, [facility] [place] [facility] [address] [id number] [place] [address]- 9838 Jun, [facility] [place] [facility] [address] [id number] [place] [address]- 6651 24 Jun, 2014 [facility] [place] [facility] [address] [id number] [place] [address]- 7295 Jun, [facility] [place] [facility] [address] [id number] [place] [address]- 8201 Jun, [facility] [place] [facility] [address] [id number] [place] [address]- 8524 Jun, [facility] [place] [facility] [address] [id number] [place] [address]- 7839 Jun, [facility] [place] [facility] [address] [id number] [place] [address]- 8066 Jun, [facility] [place] [facility] [address] [id number] [place] [address]- 4477 Jun, [facility] [place] [facility] [address] [id number] [place] [address] Jun, [facility] [place] [facility] [address] [id number] [place] [address] Jun, [facility] [place] [facility] [address] [id number] [place] [address] Jun, [facility] [place] [facility] [address] [id number], [place] [address] 20 Jun, 2014 [facility] [place] [facility] [address] [id number] [place] [address] 19 Jun, 2014 [facility] [place] [facility] [address] [id number] [place] [address]96 19 Jun, 2014 [facility] [place] [facility] [address] [id number] [place] [address] 18 Jun, 2014 [facility] [place] [facility] [address] [id number] [place] [address] 137[address] 18 Jun, 2014 [facility] [place] [facility] [address] [id number] [place] [address] 17 Jun, 2014 [facility] [place] [facility] [address] [id number] [place] [address] 17 Jun, 2014 [facility] [place] [facility] [address] [id number] [place] [address] 3864 16 Jun, 2014 [facility] [place] [facility] [address] [id number] [place] [address] 16 Jun, 2014 [facility] [place] [facility] [address] [id number] [place] [address]87 16 Jun, 2014 [facility] [place] [facility] [address] [id number] [place] [address]- 17[address] 16 Jun, 2014 [facility] [place] [facility] [address] [id number] [place] [address] 7953 16 Jun, 2014 [facility] [place] [facility] [address] [id number] [place] [address]- 6358 16 Jun, 2014 [facility] [place] [facility] [address] [id number] [place] [address]- 1007 13 Jun, 2014 [facility] [place] [facility] [address] [id number] [place] [address] 13 Jun, 2014 [facility] [place] [facility] [address] [id number] [place] [address]694 12 Jun, 2014 [facility] [place] [facility] [address] [id number] [place] [address]- [address]91 12 Jun, 2014 [facility] [place] [facility] [address] [id number] [place] [address] 09 Jun, 2014 [facility] [place] [facility] [address] [id number] [place] [address]- 2445 09 Jun, 2014 [facility] [place] [facility] [address] [id number] [place] [address] 225[address] Jun, 2014 [facility] [place] [facility] [address] [id number] [place] [address] Jun, [facility] [place] [facility] [address] [id number] [place] [address] Jun, [facility] [place] [facility] [address] [id number] [place] [address] Jun, [facility] [place] [facility] [address] [id number] [place] [address] Jun, 2014 [facility] [place] [facility] [address] [id number] [place] [address] Jun, [facility] [place] [facility] [address] [id number] [place] [address] Jun, [facility] [place] [facility] [address] [id number] [place] [address] Jun, [facility] [place] [facility] [address] [id number] [place] [address]994 Jun, [facility] [place] [facility] [address] [id number] [place] [address] Jun, [facility] [place] [facility] [address] [id number] [place] [address] 119[address] Jun, [facility] [place] [facility] [address] [id number] [place] [address]- 2809 Jun, [facility] [place] [facility] [address] [id number], [place] [address] Jun, [facility] [place] [facility] [address] [id number] [place] [address] Jun, [facility] [place] [facility] [address] [id number] [place] [address] May, [facility] [place] [facility] [address] [id number] [place] [address] May, [facility] [place] [facility] [address] [id number], [place] [address] May, 2014 [facility] [place] [facility] [address] [id number] [place] [address] May, 2014 [facility] [place] [facility] [address] [facility] [id number] [place] [address] 24 May, 2014 [facility] [place] [facility] [address] [facility] [id number] [place] [address] May, 2014 [facility] [place] [facility] [address] [facility] [id number] [place] [address] 20 May, 2014 [facility] [place] [facility] [address] [facility] [id number] [place] [address]284 May, 2014 [facility] [place] [facility] [address] [id number] [place] [address] 20 May, 2014 [facility] [place] [facility] [address] [id number] [place] [address]- [address] 20 May, 2014 [facility] [place] [facility] [address] [facility] [id number] [place] [address] 18 May, 2014 [facility] [place] [facility] [address] [id number] [place] [address] 3970 18 May, 2014 [facility] [place] [facility] [address] [id number] [place] [address] 0324 13 May, 2014 [facility] [place] [facility] [address] [facility] [id number] [place] [address] 6362 13 May, 2014 [facility] [place] [facility] [address] [facility] [id number] [place] [address] 2543 11 May, 2014 [facility] [place] [facility] [address] [facility] [id number] [place] [address] 5819 11 May, 2014 [facility] [place] [facility] [address] [facility] [id number] [place] [address] 7154 11 May, 2014 [facility] [place] [facility] [address] [facility] [id number], [place] [address] 80[address] May, 2014 [facility] [place] [facility] [address] [id number] [place] [address] 9415 May, 2014 [facility] [place] [facility] [address] [id number] [place] [address] May, 2014 [facility] [place] [facility] [address] [facility] [id number] [place] [address]- 8173 May, 2014 [facility] [place] [facility] [address] [id number] [place] [address]- 5548 May, 2014 [facility] [place] [facility] [address] [id number] [place] [address]- 5421 May, 2014 [facility] [place] [facility] [address] [id number] [place] [address]- 7783 May, 2014 [facility] [place] [facility] [address] [facility] [id number] [place] [address]- 8746 May, 2014 [facility] [place] [facility] [address] [facility] [id number] [place] [address]- 5086 May, 2014 [facility] [place] [facility] [address] [facility] [id number] [place] [address]- 7623 May, 2014 [facility] [place] [facility] [address] [facility] [id number] [place] [address]- 6815 Apr, [facility] [place] [facility] [address] [facility] [id number] [place] [address]- 1757 Apr, [facility] [place] [facility] [address] [facility] [id number], [place] [address]- 30[address] Apr, [facility] [place] [facility] [address] [id number] [place] [address]- 8710 Apr, [facility] [place] [facility] [address] [facility] [id number], [place] [address]- 7636 Apr, [facility] [place] [facility] [address] [facility] [id number], [place] [address]- 6073 Apr, [facility] [place] [facility] [address] [id number] [place] [address]- 9511 Apr, [facility] [place] [facility] [address] [id number] [place] [address]- 1031 Apr, [facility] [place] [facility] [address] [id number] [place] [address]- 3287 Apr, [facility] [place] [facility] [address] [id number] [place] [address]- 4452 Apr, [facility] [place] [facility] [address] [id number] [place] [address]- 1553 Apr, [facility] [place] [facility] [address] [id number] [place] [address]- 7884 Apr, [facility] [place] [facility] [address] [id number] [place] [address]- 7175 Apr, [facility] [place] [facility] [address] [id number] [place] [address]- 2042 Apr, [facility] [place] [facility] [address] [id number] [place] [address]- 0961 Apr, [facility] [place] [facility] [address] [id number] [place] [address]- 9870 Apr, [facility] [place] [facility] [address] [id number] [place] [address]- 7637 Apr, [facility] [place] [facility] [address] [id number] [place] [address]- 2947 Apr, [facility] [place] [facility] [address] [id number] [place] [address]- 5578 Apr, [facility] [place] [facility] [address] [id number] [place] [address]- 2690 Apr, [facility] [place] [facility] [address] [id number] [place] [address]- 8508 Mar, [facility] [place] [facility] [address] [id number] [place] [address]- 5720 Mar, [facility] [place] [facility] [address] [id number] [place] [address]- 6979 Mar, [facility] [place] [facility] [address] [id number] [place] [address] Mar, [facility] [place] [facility] [address] [id number] [place] [address]- 0176 Mar, [facility] [place] [facility] [address] [id number] [place] [address]- 3471 Mar, [facility] [place] [facility] [address] [id number] [place] [address]- 0155 Mar, [facility] [place] [facility] [address] [id number] [place] [address]- 1642 Mar, [facility] [place] [facility] [address] [id number] [place] [address]- 7174 15 Mar, 2014 [facility] [place] [facility] [address] [id number] [place] [address]- 8711 15 Mar, 2014 [facility] [place] [facility] [address] [id number] [place] [address]- 0279 15 Mar, 2014 [facility] [place] [facility] [address] [id number] [place] [address]- 6175 15 Mar, 2014 [facility] [place] [facility] [address] [id number] [place] [address]- 2253 Mar, [facility] [place] [facility] [address] [id number] [place] [address]- 7510 Mar, [facility] [place] [facility] [address] [id number] [place] [address] Mar, [facility] [place] [facility] [address] [id number] [place] [address]- 2718 Mar, [facility] [place] [facility] [address] [id number] [place] [address]- 7243 Feb, [facility] [place] [facility] [address] [id number] [place] [address]- 1542 28 Feb, 2014 [facility] [place] [facility] [address] [id number] [place] [address]- 3843 Feb, [facility] [place] [facility] [address] [id number] [place] [address]- 2064 Feb, [facility] [place] [facility] [address] [id number] [place] [address]- 2409 Feb, [facility] [place] [facility] [address] [id number] [place] [address]- 9098 Feb, [facility] [place] [facility] [address] [id number] [place] [address]- 9836 19 Feb, 2014 [facility] [place] [facility] [address] [id number] [place] [address]- 8520 18 Feb, 2014 [facility] [place] [facility] [address] [id number] [place] [address]- 6500 18 Feb, 2014 [facility] [place] [facility] [address] [id number] [place] [address]- 4644 17 Feb, 2014 [facility] [place] [facility] [address] [id number] [place] [address]- 0852 17 Feb, 2014 [facility] [place] [facility] [address] [id number] [place] [address]- 7259 17 Feb, 2014 [facility] [place] [facility] [address] [id number] [place] [address]- 0042 17 Feb, 2014 [facility] [place] [facility] [address] [id number] [place] [address]- 9810 14 Feb, 2014 [facility] [place] [facility] [address] [id number] [place] [address]- 7388 14 Feb, 2014 [facility] [place] [facility] [address] [id number] [place] [address]- 7053 14 Feb, 2014 [facility] [place] [facility] [address] [id number] [place] [address]- 6197 Feb, [facility] [place] [facility] [address] [id number] [place] [address]- 6664 Feb, [facility] [place] [facility] [address] [id number] [place] [address]- 9734 Feb, [facility] [place] [facility] [address] [id number] [place] [address]- 7104 Feb, [facility] [place] [facility] [address] [id number] [place] [address]- 8010 Feb, [facility] [place] [facility] [address] [id number] [place] [address]- 9292 Jan, [facility] [place] [facility] [address] [id number] [place] [address]- 2909 Jan, [facility] [place] [facility] [address] [id number] [place] [address]- 9019 Jan, [facility] [place] [facility] [address] [id number] [place] [address]- 3897 Jan, [facility] [place] [facility] [address] [id number] [place] [address]- 4746 Jan, [facility] [place] [facility] [address] [id number], [place] [address]- 0006 Jan, [facility] [place] [facility] [address] [id number], [place] [address]- 3287 Jan, [facility] [place] [facility] [address] [id number], [place] [address]- 4874 Jan, [facility] [place] [facility] [address] [id number] [place] [address]- 7778 Jan, [facility] [place] [facility] [address] [id number] [place] [address]- 0254 Jan, [facility] [place] [facility] [address] [id number], [place] [address]- 4010 Jan, [facility] [place] [facility] [address] [id number], [place] [address]- 4420 17 Jan, 2013 [facility] [place] [facility] [address] [id number] [place] [address]- 6023 17 Jan, 2013 [facility] [place] [facility] [address] [id number] [place] [address]- 8595 17 Jan, 2013 [facility] [place] [facility] [address] [id number] [place] [address]- 2440 15 Jan, 2013 [facility] [place] [facility] [address] [id number] [place] [address]- 3696 15 Jan, 2013 [facility] [place] [facility] [address] [id number] [place] [address]- 6860 14 Jan, 2014 [facility] [place] [facility] [address] [id number] [place] [address]- 8416 14 Jan, 2013 [facility] [place] [facility] [address] [id number], [place] [address]- 0228 13 Jan, 2013 [facility] [place] [facility] [address] [id number] [place] [address]- 4673 13 Jan, 2013 [facility] [place] [facility] [address] [id number] [place] [address]- 3369 13 Jan, 2014 [facility] [place] [facility] [address] [id number] [place] [address]- 6807 13 Jan, 2014 [facility] [place] [facility] [address] [id number], [place] [address]- 1626 10 Jan, 2013 [facility] [place] [facility] [address] [id number], [place] [address]- 9075 02 Jan, 2014 [facility] [place] [facility] [address] [id number] [place] [address]- 6088 Jan, [facility] [place] [facility] [address] [id number], [place] [address]- 7097 25 Dec, 2013 [facility] [place] [facility] [address] [id number], [place] [address]- 4688 25 Dec, 2013 [facility] [place] [facility] [address] [id number] [place] [address]- 4062 23 Sep, 2013 [facility] [place] [facility] [address] [id number] [place] [address] 2546 23 Sep, 2013 [facility] [place] [facility] [address] [id number] [place] [address] 2546 19 Sep, 2013 [facility] [place] [facility] [address] [id number] [place] [address] 2546 19 Sep, 2013 [facility] [place] [facility] [address] [id number] [place] [address] 2547 17 Sep, 2013 [facility] [place] [facility] [address] [id number] [place] [address] 254 17 Sep, 2013 [facility] [place] [facility] [address] [id number] [place] [address]- 7066 09 Sep, 2013 [facility] [place] [facility] [address] [id number] [place] [address]- 0998 09 Sep, 2013 [facility] [place] [facility] [address] [id number] [place] [address] 2545 08 Sep, 2013 [facility] [place] [facility] [address] [id number] [place] [address] 2541 08 Sep, 2013 [facility] [place] [facility] [address] [id number] [place] [address] 2545 04 Sep, 2013 [facility] [place] [facility] [address] [id number] [place] [address] 2541 04 Sep, 2013 [facility] [place] [facility] [address] [id number] [place] [address] 2549 02 Sep, 2013 [facility] [place] [facility] [address] [id number] [place] [address] 2546 02 Sep, 2013 [facility] [place] [facility] [address] [id number] [place] [address] 2543 02 Sep, 2013 [facility] [place] [facility] [address] [id number] [place] [address]- 3212 Dec, [facility] [place] [facility] [address] [id number] [place] [address]- 1834 Nov, [facility] [place] [facility] [address] [id number] [place] [address]- 1028 Nov, [facility] [place] [facility] [address] [id number] [place] [address]- 2619 Nov, [facility] [place] [facility] [address] [id number] [place] [address]- 3254 Nov, [facility] [place] [facility] [address] [id number] [place] [address]- 7083 Nov, [facility] [place] [facility] [address] [id number] [place] [address]- 3113 Nov, [facility] [place] [facility] [address] [id number] [place] [address]- 3486 Nov, [facility] [place] [facility] [address] [id number] [place] [address]- 3780 Nov, [facility] [place] [facility] [address] [id number] [place] [address]- 0851 Nov, [facility] [place] [facility] [address] [id number] [place] [address]- 5949 Nov, [facility] [place] [facility] [address] [id number] [place] [address]- 1928 Nov, [facility] [place] [facility] [address] [id number], [place] [address]- 4220 Nov, [facility] [place] [facility] [address] [id number] [place] [address]- 3068 Oct, [facility] [place] [facility] [address] [id number] [place] [address]- 2946 Oct, [facility] [place] [facility] [address] [id number] [place] [address]- 6031 Oct, [facility] [place] [facility] [address] [id number] [place] [address]- 3901 Oct, [facility] [place] [facility] [address] [id number] [place] [address]- 8469 Oct, [facility] [place] [facility] [address] [id number] [place] [address]- 0490 Oct, [facility] [place] [facility] [address] [id number] [place] [address]- 9518 Oct, [facility] [place] [facility] [address] [id number] [place] [address]- 9027 Oct, [facility] [place] [facility] [address] [id number] [place] [address]- 2266 Oct, [facility] [place] [facility] [address] [id number] [place] [address]- 2344 Oct, [facility] [place] [facility] [address] [id number] [place] [address]- 4376 Oct, [facility] [place] [facility] [address] [id number] [place] [address]- 8817 Oct, [facility] [place] [facility] [address] [id number] [place] [address]- 0307 Oct, [facility] [place] [facility] [address] [id number] [place] [address]- 4052 Oct, [facility] [place] [facility] [address] [id number] [place] [address]- 8757 Oct, [facility] [place] [facility] [address] [id number] [place] [address]- 1995 Oct, [facility] [place] [facility] [address] [id number] [place] [address]- 9146 Oct, [facility] [place] [facility] [address] [id number] [place] [address]- 1529 Sep, [facility] [place] [facility] [address] [id number] [place] [address]- 4365 Sep, [facility] [place] [facility] [address] [id number] [place] [address]- 3325 Sep, [facility] [place] [facility] [address] [id number] [place] [address]- 6368 Sep, [facility] [place] [facility] [address] [id number] [place] [address]- 8689 Sep, [facility] [place] [facility] [address] [id number] [place] [address]- 2940 Sep, [facility] [place] [facility] [address] [id number] [place] [address]- 2149 Sep, [facility] [place] [facility] [address] [id number] [place] [address]- 9903 Sep, [facility] [place] [facility] [address] [id number] [place] [address]- 3265 Sep, [facility] [place] [facility] [address] [id number] [place] [address]- 0393 Sep, [facility] [place] [facility] [address] [id number] [place] [address]- 6658 Sep, [facility] [place] [facility] [address] [id number] [place] [address]- 1355 Sep, [facility] [place] [facility] [address] [id number] [place] [address]- 4080 Sep, [facility] [place] [facility] [address] [id number] [place] [address]- 3189 Sep, [facility] [place] [facility] [address] [id number] [place] [address]- 2944 Sep, [facility] [place] [facility] [address] [id number] [place] [address]- 7810 Sep, [facility] [place] [facility] [address] [id number] [place] [address]- 6480 07 Sep, 2013 [facility] [place] [facility] [address] [id number] [place] [address]- 4764 Sep, [facility] [place] [facility] [address] [id number] [place] [address]- 3959 Sep, [facility] [place] [facility] [address] [id number] [place] [address]- 5498 Sep, [facility] [place] [facility] [address] [id number] [place] [address]- 4245 Sep, [facility] [place] [facility] [address] [id number] [place] [address]- 5262 Sep, [facility] [place] [facility] [address] [id number] [place] [address]- 4624 August, [facility] [place] [facility] [address] [id number] [place] [address]- 1766 August, [facility] [place] [facility] [address] [id number] [place] [address]- 0263 August, [facility] [place] [facility] [address] [id number] [place] [address]- 0358 August, [facility] [place] [facility] [address] [id number] [place] [address]- 8594 August, [facility] [place] [facility] [address] [id number] [place] [address]- 0296 August, [facility] [place] [facility] [address] [id number] [place] [address]- 1208 August, [facility] [place] [facility] [address] [id number] [place] [address]- 5539 August, [facility] [place] [facility] [address] [id number] [place] [address]- 5390 August, [facility] [place] [facility] [address] [id number] [place] [address]- 6537 August, [facility] [place] [facility] [address] [id number] [place] [address]- 5022 August, [facility] [place] [facility] [address] [id number] [place] [address]- 4033 28 Jul, 2013 [facility] [address] [id number] [place] [address]- 2600 Jul, [facility] [place] [facility] [address] [id number] [place] [address]- 4294 Jul, [facility] [address] [id number] [place] [address]- 0057 Jul, [facility] [address] [id number] [place] [address]- 1243 Jul, [facility] [address] [id number] [place] [address]- 9806 Jul, [facility] [address] [id number] [place] [address]- 9262 Jul, [facility] [address] [id number] [place] [address]- 8719 Jul, [facility] [address] [id number] [place] [address] 18 Jul, 2013 [facility] [address] [id number] [place] [address] 77[address] 18 Jul, 2013 [facility] [address] [id number] [place] [address] 16 Jul, 2013 [facility] [place] [facility] [address] [id number] [place] [address] 14 Jul, 2013 [facility] [address] [id number] [place] [address] 14 Jul, 2013 [facility] [place] [facility] [address] [id number] [place] [address] 9938 11 Jul, 2013 [facility] [place] [facility] [address] [id number] [place] [address] 11 Jul, 2013 [facility] [place] [facility] [address] [id number] [place] [address]272 Jul, [facility] [place] [facility] [address] [id number] [place] [address] 9006 Jul, [facility] [place] [facility] [address] [id number] [place] [address] 7547 Jul, [facility] [place] [facility] [address] [id number] [place] [address] 4[address] Jul, [facility] [place] [facility] [address] [id number] [place] [address] 395[address] Jul, [facility] [place] [facility] [address] [id number] [place] [address]006 Jul, [facility] [place] [facility] [address] [id number] [place] [address] 5697 Jul, [facility] [place] [facility] [address] [id number] [place] [address] Jul, [facility] [place] [facility] [address] [id number] [place] [address] Jun, [facility] [place] [facility] [address] [id number] [place] [address]- 1796 Jun, [facility] [place] [facility] [address] [id number] [place] [address]- 0462 Jun, [facility] [place] [facility] [address] [id number] [place] [address] 8874 Jun, [facility] [place] [facility] [address] [id number] [place] [address]- 8632 Jun, [facility] [place] [facility] [address] [id number] [place] [address] Jun, [facility] [place] [facility] [address] [id number] [place] [address]- 3736 Jun, [facility] [place] [facility] [address] [id number] [place] [address]- 8364 Jun, [facility] [place] [facility] [address] [id number] [place] [address]- 4773 18 Jun, 2013 [facility] [place] [facility] [address] [id number] [place] [address]- 9961 Jun, [facility] [place] [facility] [address] [id number] [place] [address]- 9844 Jun, [facility] [place] [facility] [address] [id number] [place] [address]- 5516 Jun, [facility] [place] [facility] [address] [id number] [place] [address]- 8562 May, [facility] [place] [facility] [address] [id number] [place] [address] 3884 May, [facility] [place] [facility] [address] [id number] [place] [address]- [address]322 Apr, [facility] [place] [facility] [address] [id number] [place] [address] 7352 Apr, [facility] [place] [facility] [address] [id number] [place] [address] 0558 Apr, [facility] [place] [facility] [address] [id number] [place] [address] 7718 Apr, [facility] [place] [facility] [address] [id number] [place] [address] 7650 Apr, [facility] [place] [facility] [address] [id number] [place] [address] 9052 Apr, [facility] [place] [facility] [address] [id number] [place] [address] 0317 Apr, [facility] [place] [facility] [address] [id number] [place] [address] 2404 Apr, [facility] [place] [facility] [address] [id number] [place] [address] 4228 Apr, [facility] [place] [facility] [address] [id number] [place] [address]- 6307 Apr, [facility] [place] [facility] [address] [id number] [place] [address] 6212 Apr, [facility] [place] [facility] [address] [id number] [place] [address] 50[address] Mar, [facility] [place] [facility] [address] [id number] [place] [address] Mar, [facility] [place] [facility] [address] [id number] [place] [address] 4108 Mar, [facility] [place] [facility] [address] [id number] [place] [address]- 9518 Mar, [facility] [place] [facility] [address] [id number] [place] [address]- 1673 Feb, [facility] [place] [facility] [address] [id number] [place] [address]- 3871 Feb, [facility] [place] [facility] [address] [id number] [place] [address]- 8623 Feb, [facility] [place] [facility] [address] [id number] [place] [address]- 2300 Feb, [facility] [place] [facility] [address] [id number] [place] [address]- 8230 Feb, [facility] [place] [facility] [address] [id number] [place] [address]- 6427 Feb, [facility] [place] [facility] [address] [id number] [place] [address] 8171 Feb, [facility] [place] [facility] [address] [id number] [place] [address]- 4007 Feb, [facility] [place] [facility] [address] [id number] [place] [address]- 2778 Feb, [facility] [place] [facility] [address] [id number] [place] [address] 6822 Feb, [facility] [place] [facility] [address] [id number] [place] [address]- 0212 Feb, [facility] [place] [facility] [address] [id number] [place] [address] 0331 Jan, [facility] [place] [facility] [address] [id number] [place] [address]- 1491 Jan, [facility] [place] [facility] [address] [id number] [place] [address]- 6195 Jan, [facility] [place] [facility] [address] [id number] [place] [address]- 2057 Jan, [facility] [place] [facility] [address] [id number] [place] [address]- 1230 Jan, [facility] [place] [facility] [address] [id number] [place] [address]- 1199 Jan, [facility] [place] [facility] [address] [id number] [place] [address]- 7231 Jan, [facility] [place] [facility] [address] [id number], [place] [address] 2382 02 Jan, 2013 [facility] [place] [facility] [address] [id number], [place] [address]- 9821 30 Sep, 2012 [facility] [place] [facility] [address] [id number] [place] [address]- 4930 25 Sep, 2012 [facility] [place] [facility] [address] [id number], [place] [address]- [address]183 18 Sep, 2012 [facility] [place] [facility] [address] [id number], [place] [address]- [address]33 17 Sep, 2012 [facility] [place] [facility] [address] [id number] [place] [address] 2542 17 Sep, 2012 [facility] [place] [facility] [address] [id number], [place] [address]- 0485 16 Sep, 2012 [facility] [place] [facility] [address] [id number], [place] [address]- 2545 13 Sep, 2012 [facility] [place] [facility] [address] [id number] [place] [address]- 0083 11 Dec, 2012 [facility] [address] [id number] [place] [address] 05 Dec, 2012 [facility] [address] [id number] [place] [address] 04 Dec, 2012 [facility] [address] [id number] [place] [address] 30 Nov, 2012 [facility] [address] [id number] [place] [address] Nov, [facility] [address] [id number] [place] [address] 45[address] Nov, [facility] [address] [id number] [place] [address] 228[address] Nov, [facility] [address] [id number] [place] [address] 7179 Nov, [facility] [address] [id number] [place] [address] 1781 Nov, [facility] [address] [id number] [place] [address] 2001 Nov, [facility] [address] [id number] [place] [address] 8236 Oct, [facility] [place] [facility] [address] [id number] [place] [address] 3[address] Oct, [facility] [address] [id number] [place] [address] 6376 Oct, [facility] [place] [facility] [address] [id number] [place] [address] 9716 17 Oct, 2012 [facility] [place] [facility] [address] [id number] [place] [address] 6290 15 Oct, 2012 [facility] [place] [facility] [address] [id number] [place] [address] 1688 Oct, [facility] [place] [facility] [address] [id number] [place] [address] 1683 Sep, [facility] [place] [facility] [address] [id number] [place] [address] 1148 Sep, [facility] [place] [facility] [address] [id number] [place] [address] 2296 Sep, [facility] [place] [facility] [address] [id number] [place] [address] 1765 Sep, [facility] [address] [id number] [place] [address] 3794 Sep, [facility] [place] [facility] [address] [id number] [place] [address] 9114 Sep, [facility] [address] [id number] [place] [address]- 3678 Sep, [facility] [place] [facility] [address] [id number] [place] [address] 8026 Sep, [facility] [place] [facility] [address] [id number] [place] [address]- 4277 Sep, [facility] [place] [facility] [address] [id number] [place] [address] 4196 August, [facility] [place] [facility] [address] [id number] [place] [address] 5597 August, [facility] [place] [facility] [address] [id number] [place] [address] 0366 August, [facility] [place] [facility] [address] [id number] [place] [address] 7624 August, [facility] [place] [facility] [address] [id number] [place] [address] 53[address] August, [facility] [place] [facility] [address] [id number] [place] [address] 3[address] August, [facility] [place] [facility] [address] [id number], [place] [address] August, [facility] [address] [id number] [place] [address] 9812 August, [facility] [address] [id number] [place] [address] 5231 Jul, [facility] [address] [id number] [place] [address] Jul, [address] [id number] Jul [facility] [address] [id number] [place] [address] 2547 Jun, [facility] [address] [id number] [place] [address] 5749 Jun, [facility] [address] [id number] [place] [address] 9088 Jun, [facility] [address] [id number], [place] [address] 9663 Jun, [facility] [address] [id number] [place] [address] 4184 Jun, [facility] [address] [id number], [place] [address] 1338 Jun, [facility] [address] [id number], [place] [address] 59[address] May, [facility] [address] [id number], [place] [address] 3968 May, [facility] [address] [id number] [place] [address] 4843 May, [facility] [address] [id number] [place] [address]- 0736 May, [facility] [address] [id number], [place] [address] 2546 May, [facility] [address] [id number] [place] [address] 2448 30 Apr, 2012 [facility] [address] [id number] [place] [address] 9175 15 Apr, 2012 [facility] [address] [id number] [place] [address]- 9176 11 Apr, 2012 [facility] [address] [id number] [place] [address] 3536 Apr, [facility] [address] [id number] [place] [address]- 4368 Apr, [facility] [address] [id number] [place] [address] 5628 Apr, [facility] [address] [id number] [place] [address] 7474 26 Mar, 2012 [facility] [address] [id number] [place] [address] 9130 20 Mar, 2012 [facility] [address] [id number] [place] [address] 7251 20 Mar, 2012 [facility] [address] [id number] [place] [address]- 8698 19 Mar, 2012 [facility] [address] [facility] [id number] [place] [address] 2418 19 Mar, 2012 [facility] [address] [id number] [place] [address] 2547 18 Mar, 2012 [facility] [address] [id number] [place] [address] 2541 18 Mar, 2012 [facility] [address] [id number] [place] [address]- 2614 10 Mar, 2012 [facility] [address] [id number] [place] [address]- 2548 10 Mar, 2012 [facility] [address] [id number] [place] [address]- 1054 Mar, [facility] [place] [facility] [address] [id number] [place] [address]- 2834 Mar, [facility] [place] [facility] [address] [id number] [place] [address]- 4106 Feb, [facility] [place] [facility] [address] [id number] [place] [address]- 3974 Feb, [facility] [place] [facility] [address] [id number] [place] [address]- 9766 Feb, [facility] [place] [facility] [address] [id number] [place] [address]- 8741 Feb, [facility] [place] [facility] [address] [id number] [place] [address]- 8154 Feb, [facility] [place] [facility] [address] [facility] [id number] [place] [address]- 8773 Feb, [facility] [place] [facility] [address] [id number], [place] [address]- 5623 Feb, [facility] [place] [facility] [address] [facility] [id number] [place] [address]- 0297 Feb, [facility] [place] [facility] [address] [facility] [id number], [place] [address]- 5292 Feb, [facility] [place] [facility] [address] [facility] [id number], [place] [address]- 9632 Feb, [facility] [place] [facility] [address] [id number], [place] [address]- 5371 Feb, [facility] [place] [facility] [address] [id number], [place] [address]- 9487 Jan, [facility] [place] [facility] [address] [id number], [place] [address]- 1457 Jan, [facility] [place] [facility] [address] [facility] [id number], [place] [address]- 7183 Jan, [facility] [place] [facility] [address] [id number], [place] [address]- 5253 Jan, [facility] [place] [facility] [address] [id number] [place] [address]- 9131 Jan, [facility] [place] [facility] [address] [id number] [place] [address]- 2636 Jan, [facility] [place] [facility] [address] [id number] [place] [address]- 5509 Jan, [facility] [place] [facility] [address] [id number] [place] [address]- 8755 24 Dec, 2011 [facility] [place] [facility] [address] [id number] [place] [address]- 4011 17 Dec, 2011 [facility] [place] [facility] [address] [id number] [place] [address]- 6994 13 Dec, 2011 [facility] [place] [facility] [address] [id number] [place] [address]- 5798 12 Dec, 2011 [facility] [place] [facility] [address] [id number] [place] [address]- 9828 Nov, [facility] [place] [facility] [address] [id number] [place] [address]- 8163 Nov, [facility] [place] [facility] [address] [id number] [place] [address]- 2374 17 Nov, 2011 [facility] [place] [facility] [address] [id number] [place] [address]- 9608 15 Nov, 2011 [facility] [place] [facility] [address] [id number] [place] [address]- 9269 14 Nov, 2011 [facility] [place] [facility] [address] [id number] [place] [address]- 6209 13 Nov, 2011 [facility] [place] [facility] [address] [id number] [place] [address]- 5874 10 Nov, 2011 [facility] [place] [facility] [address] [facility] [id number] [place] [address]- 6504 09 Nov, 2011 [facility] [place] [facility] [address] [id number] [place] [address]- 0173 Nov, [facility] [place] [facility] [address] [id number] [place] [address]- 0870 Nov, [facility] [place] [facility] [address] [id number] [place] [address]- 2206 Nov, [facility] [place] [facility] [address] [id number] [place] [address]- 1130 Nov, [facility] [place] [facility] [address] [id number] [place] [address]- 4005 Nov, [facility] [place] [facility] [address] [id number] [place] [address]- 3408 Oct, [facility] [place] [facility] [address] [id number] [place] [address]- 6326 Oct, [facility] [place] [facility] [address] [id number] [place] [address]- 6751 Oct, [facility] [place] [facility] [address] [id number] [place] [address]- 4146 Oct, [facility] [place] [facility] [address] [id number] [place] [address]- 8296 Oct, [facility] [place] [facility] [address] [id number] [place] [address]- 4230 Oct, [facility] [place] [facility] [address] [id number] [place] [address]- 4468 Oct, [facility] [place] [facility] [address] [id number] [place] [address]- 5279 Oct, [facility] [place] [facility] [address] [id number] [place] [address]- 6120 Oct, [facility] [place] [facility] [address] [id number] [place] [address]- 7346 Sep, [facility] [place] [facility] [address] [id number] [place] [address]- 2696 Sep, [facility] [place] [facility] [address] [id number] [place] [address]- 8945 Sep, [facility] [place] [facility] [address] [id number] [place] [address]- 1167 Sep, [facility] [place] [facility] [address] [id number] [place] [address]- 6872 Sep, [facility] [place] [facility] [address] [id number] [place] [address]- 7312 Sep, [facility] [place] [facility] [address] [id number] [place] [address]- 2436 Sep, [facility] [place] [facility] [address] [id number] [place] [address]- 6367 Sep, [facility] [place] [facility] [address] [id number] [place] [address]- 2315 August, [facility] [place] [facility] [address] [id number] [place] [address]- 8175 August, [facility] [place] [facility] [address] [id number] [place] [address]- 7980 August, [facility] [place] [facility] [address] [id number] [place] [address]- 7841 August, [facility] [place] [facility] [address] [id number] [place] [address]- 1269 August, [facility] [place] [facility] [address] [id number] [place] [address]- 1403 August, [facility] [place] [facility] [address] [id number] [place] [address]- 9910 August, [facility] [place] [facility] [address] [id number] [place] [address]- 2383 August, [facility] [place] [facility] [address] [id number] [place] [address]- 6917 August, [facility] [place] [facility] [address] [facility] [id number] [place] [address]- 7307 August, [facility] [address] [facility] [id number] [place] [address]- 7862 August, [facility] [address] [facility] [id number] [place] [address]- 9385 August, [facility] [address] [facility] [id number] [place] [address]- 2445 Oct, IMMUNIZATIONS No Known Immunizations SOCIAL HISTORY Never Assessed REASON FOR VISIT PLAN OF CARE VITAL SIGNS MEDICATIONS Unknown [...] Surgical History bladder surgery Hospitalization History Via [facility] for right groin pain 05/2011 Hospitalization History Via [facility] for wound on buttocks 08/2012 Hospitalization History Via [facility], hypoxia secondary to pneumonia 12/02-12/09 Hospitalization History Pneumonia, elevated CO2 on Bipap was in ICU 08/2013 Hospitalization History Hypoxia, Exacerbation COPD, Chest pain 09/05/15 Hospitalization History suicidal ideations-[place] 12/28 Hospitalization History hypoxia--[facility] 02/13/2016 Hospitalization History shortness of breath at june 2016 Hospitalization History Shortness of breath at august 2016 Hospitalization History SOB, chest pain at 12/2016
--- OUTSIDE RECORDS SUMMARY | 2017-11-24 18:06 | XMS REPORT ---
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 83124 254 10 Dec, 2014 Affective disorder 296.90 [facility] [address] [address] 2546 04 Dec, 2014 [facility] [id number] [place] [address] 02021 2546 04 Dec, 2014 [facility] [address] [address] 2547 04 Dec, 2014 [facility] [id number] [place] [address] 36778 2546 03 Dec, 2014 [facility] [address] [address] 2543 Nov, 2014 Affective disorder 296.90 [facility] [id number] [place] [address] 35261 2546 27 Nov, 2014 [facility] [address] [address] 2546 Nov, 2014 Affective disorder 296.90 [facility] [id number] [place] [address] 90206- 7476 Nov, Diarrhea 787.91 [facility] [address] [address] 2546 Nov, [facility] [id number] [place] [address] 88236 2546 Nov, Diarrhea 787.91 [facility] [id number] [place] [address] 21926 2546 Nov, Diarrhea 787.91 and Hyperlipidemia 272.4 [facility] [id number] [place] [address] 69609 2546 Nov, Diarrhea 787.91 [facility] [id number] [place] [address] 69867 2546 Nov, Affective disorder 296.90 [facility] [id number] [place] [address] 55779- 6296 Nov, Affective disorder 296.90 [facility] [id number] [place] [address] 74198 254 Nov, Affective disorder 296.90 [facility] [id number] [place] [address] 61441- 6415 Nov, [facility] [address] [address]- 7619 Nov, [facility] [address] [address] 2547 Nov, [facility] [address] [address] 2545 Nov, Episodic mood disorder 296.90 [facility] [address] [address] 2546 Nov, [facility] [address] [address] 2546 Nov, [facility] [address] [address] 7805 Nov, [facility] [address] [address]- 4555 Nov, [facility] [address] [address]- 7325 Nov, [facility] [address] [address]- 0036 Nov, Lymphedema 457.1 ; Hyperlipidemia 272.4 ; Essential hypertension, benign 401.1 and Numbness of toes 782.0 [facility] [id number] [address]- 6567 Nov, Episodic mood disorder 296.90 [facility] [address] [address]- 8104 Oct, [facility] [address] [address]- 7405 Oct, [facility] [address] [address]- 4769 Oct, [facility] [address] [address]- 3113 Oct, [facility] [address] [address]- 3463 Oct, [facility] [address] [address]- 2281 Oct, [facility] [address] [address]- 0076 Oct, [facility] [id number] [address]- 0237 Oct, [facility] [address] 9228 Oct, Episodic mood disorder 296.90 [facility] [id number] [address]- 6570 Sep, [facility] [address] [address]- 6253 29 Sep, 2014 [facility] [address] [address]- 6500 Sep, [facility] [address] [address]- 0885 Sep, [facility] [address] [address]- 1208 Sep, [facility] [address] [address]- 6639 Sep, Episodic mood disorder 296.90 [facility] [id number] [place] [address] 95141- 3888 19 Sep, 2014 Unspecified episodic mood disorder 296.90 [facility] [address] [address]- 8892 18 Sep, 2014 [facility] [address] [address]- 6087 18 Sep, 2014 [facility] [address] [address]- 6475 16 Sep, 2014 Episodic mood disorder 296.90 [facility] [address] [address]- 3383 15 Sep, 2014 [facility] [address] [address]- 1802 15 Sep, 2014 [facility] [address] [address]- 8334 12 Sep, 2014 [facility] [address] [address]- 1033 09 Sep, 2014 Hematemesis 578.0 and Vomiting 787.03 [facility] [address] [address]- 6660 09 Sep, 2014 Episodic mood disorder 296.90 [facility] [address] [address]- 0090 Sep, [facility] [address] [address]- 2722 Sep, [facility] [id number] [place] [address] 986712- 1561 Sep, Diabetes mellitus without mention of complication, type II or unspecified type, not stated as uncontrolled 250.00 and Other chronic pain 338.29 [facility] [id number] [place] [address] 94373- 1076 Sep, Episodic mood disorder 296.90 [facility] [id number] [place] [address] 53936- 0590 Sep, [facility] [id number] [place] [address] 42820- 0342 Sep, Episodic mood disorder 296.90 [facility] [id number] [place] [address] 99288- 9927 Sep, [facility] [address] [address]- 4113 August, [facility] [id number] [place] [address] 23265- 8838 August, [facility] [address] [address]- 6718 August, Episodic mood disorder 296.90 [facility] [address] [address]- 8378 August, [facility] [address] 8373 August, Unspecified episodic mood disorder 296.90 [facility] [id number] [address]- 9382 August, Vomiting 787.03 [facility] [address] 0432 August, [facility] [id number] [place] [address] 71242- 7610 August, [facility] [place] [facility] [address] [id number] [place] [address]- 5434 August, [facility] [place] [facility] [address] [id number] [place] [address]- 3333 August, [facility] [place] [facility] [address] [facility] [id number] [place] [address]- 5701 August, [facility] [place] [facility] [address] [id number] [place] [address]- 0846 Jul, [facility] [place] [facility] [address] [id number] [place] [address]- 0169 Jul, [facility] [place] [facility] [address] [id number] [place] [address]- 9689 Jul, [facility] [place] [facility] [address] [facility] [id number] [place] [address]- 7269 Jun, [facility] [place] [facility] [address] [id number] [place] [address]- 1910 Jun, [facility] [place] [facility] [address] [id number] [place] [address]- 9875 Jun, [facility] [place] [facility] [address] [facility] [id number] [place] [address]- 3940 Jun, [facility] [place] [facility] [address] [id number] [place] [address]- 9815 Jun, [facility] [place] [facility] [address] [id number] [place] [address]- 1092 Jun, [facility] [place] [facility] [address] [id number] [place] [address]- 3385 Jun, [facility] [place] [facility] [address] [facility] [id number] [place] [address]- 3482 30 Jun, 2014 [facility] [place] [facility] [address] [facility] [id number] [place] [address]- 5021 Jun, [facility] [place] [facility] [address] [id number] [place] [address]- 9406 27 Jun, 2014 [facility] [place] [facility] [address] [id number] [place] [address]- 6589 Jun, [facility] [place] [facility] [address] [id number] [place] [address]- 7526 Jun, [facility] [place] [facility] [address] [id number] [place] [address]- 9815 Jun, [facility] [place] [facility] [address] [id number] [place] [address]- 8901 Jun, [facility] [place] [facility] [address] [id number] [place] [address]- 4586 Jun, [facility] [place] [facility] [address] [id number] [place] [address]- 4040 Jun, [facility] [place] [facility] [address] [id number] [place] [address]- 1098 Jun, [facility] [place] [facility] [address] [id number] [place] [address]- 9176 Jun, [facility] [place] [facility] [address] [id number] [place] [address]- 0911 Jun, [facility] [place] [facility] [address] [id number] [place] [address]- 3493 Jun, [facility] [place] [facility] [address] [id number] [place] [address]- 3649 Jun, [facility] [place] [facility] [address] [id number] [place] [address]- 2554 Jun, [facility] [place] [facility] [address] [id number] [place] [address]- 7296 Jun, [facility] [place] [facility] [address] [id number] [place] [address] Jun, [facility] [place] [facility] [address] [id number] [place] [address] Jun, 2014 [facility] [place] [facility] [address] [id number] [place] [address] 19 Jun, 2014 [facility] [place] [facility] [address] [id number] [place] [address] 19 Jun, 2014 [facility] [place] [facility] [address] [id number] [place] [address] 18 Jun, 2014 [facility] [place] [facility] [address] [id number] [place] [address] 18 Jun, 2014 [facility] [place] [facility] [address] [id number] [place] [address] 17 Jun, 2014 [facility] [place] [facility] [address] [id number] [place] [address] 17 Jun, 2014 [facility] [place] [facility] [address] [id number] [place] [address] 16 Jun, 2014 [facility] [place] [facility] [address] [id number] [place] [address] 16 Jun, 2014 [facility] [place] [facility] [address] [id number] [place] [address] 16 Jun, 2014 [facility] [place] [facility] [address] [id number] [place] [address] 16 Jun, 2014 [facility] [place] [facility] [address] [id number] [place] [address] 16 Jun, 2014 [facility] [place] [facility] [address] [id number] [place] [address]- 16[address] 16 Jun, 2014 [facility] [place] [facility] [address] [id number] [place] [address] 13 Jun, 2014 [facility] [place] [facility] [address] [id number] [place] [address]- [address] 13 Jun, 2014 [facility] [place] [facility] [address] [id number] [place] [address]- [address]65 12 Jun, 2014 [facility] [place] [facility] [address] [id number] [place] [address]- [address]997 Jun, 2014 [facility] [place] [facility] [address] [id number] [place] [address] Jun, 2014 [facility] [place] [facility] [address] [id number] [place] [address] [address] Jun, 2014 [facility] [place] [facility] [address] [id number] [place] [address] Jun, 2014 [facility] [place] [facility] [address] [id number] [place] [address]- [address] Jun, 2014 [facility] [place] [facility] [address] [id number] [place] [address] Jun, 2014 [facility] [place] [facility] [address] [id number] [place] [address] Jun, 2014 [facility] [place] [facility] [address] [id number] [place] [address]- [address] Jun, 2014 [facility] [place] [facility] [address] [id number] [place] [address] Jun, 2014 [facility] [place] [facility] [address] [id number] [place] [address] Jun, 2014 [facility] [place] [facility] [address] [id number] [place] [address]- [address] Jun, [facility] [place] [facility] [address] [id number] [place] [address] Jun, 2014 [facility] [place] [facility] [address] [id number] [place] [address] Jun, 2014 [facility] [place] [facility] [address] [id number] [place] [address] Jun, 2014 [facility] [place] [facility] [address] [id number] [place] [address] Jun, 2014 [facility] [place] [facility] [address] [id number] [place] [address]- [address] Jun, 2014 [facility] [place] [facility] [address] [id number] [place] [address]- 2112 Jun, [facility] [place] [facility] [address] [id number] [place] [address] May, 2014 [facility] [place] [facility] [address] [id number] [place] [address] 2546 May, 2014 [facility] [place] [facility] [address] [id number] [place] [address] 2545 May, 2014 [facility] [place] [facility] [address] [id number] [place] [address] 2547 May, 2014 [facility] [place] [facility] [address] [id number] [place] [address] 0266 May, 2014 [facility] [place] [facility] [address] [facility] [id number] [place] [address] 4688 May, 2014 [facility] [place] [facility] [address] [facility] [id number] [place] [address]- 3339 May, 2014 [facility] [place] [facility] [address] [id number] [place] [address]- 1339 May, 2014 [facility] [place] [facility] [address] [facility] [id number] [place] [address]- 6018 May, 2014 [facility] [place] [facility] [address] [facility] [id number] [place] [address]- 4536 May, 2014 [facility] [place] [facility] [address] [facility] [id number] [place] [address] 2540 May, 2014 [facility] [place] [facility] [address] [id number] [place] [address]- 2546 May, 2014 [facility] [place] [facility] [address] [facility] [id number] [place] [address]- 2546 May, 2014 [facility] [place] [facility] [address] [facility] [id number] [place] [address]- 2546 May, 2014 [facility] [place] [facility] [address] [id number] [place] [address]- 3432 May, 2014 [facility] [place] [facility] [address] [id number] [place] [address]- 5814 May, 2014 [facility] [place] [facility] [address] [id number] [place] [address]- 0074 May, 2014 [facility] [place] [facility] [address] [id number] [place] [address]- 0523 May, 2014 [facility] [place] [facility] [address] [id number] [place] [address]- 9701 May, 2014 [facility] [place] [facility] [address] [id number] [place] [address]- 8451 May, 2014 [facility] [place] [facility] [address] [facility] [id number] [place] [address]- 8960 May, 2014 [facility] [place] [facility] [address] [facility] [id number] [place] [address]- 6876 May, 2014 [facility] [place] [facility] [address] [facility] [id number] [place] [address]- 3921 May, 2014 [facility] [place] [facility] [address] [facility] [id number] [place] [address]- 7922 May, 2014 [facility] [place] [facility] [address] [facility] [id number] [place] [address]- 3706 May, 2014 [facility] [place] [facility] [address] [facility] [id number] [place] [address]- 4795 May, 2014 [facility] [place] [facility] [address] [facility] [id number] [place] [address]- 8885 May, 2014 [facility] [place] [facility] [address] [id number] [place] [address]- 6830 Apr, [facility] [place] [facility] [address] [facility] [id number] [place] [address]- 2672 Apr, [facility] [place] [facility] [address] [id number] [place] [address]- 4798 Apr, [facility] [address] [id number] [place] [address]- 9692 Apr, [facility] [place] [facility] [address] [id number] [place] [address]- 9533 Apr, [facility] [place] [facility] [address] [id number] [place] [address]- 4810 Apr, [facility] [place] [facility] [address] [id number] [place] [address]- 8110 Apr, [facility] [place] [facility] [address] [id number] [place] [address]- 8341 Apr, [facility] [place] [facility] [address] [id number] [place] [address]- 4197 Apr, [facility] [place] [facility] [address] [id number] [place] [address]- 9563 Apr, [facility] [place] [facility] [address] [id number] [place] [address]- 8367 Apr, [facility] [place] [facility] [address] [id number] [place] [address]- 9414 Apr, [facility] [place] [facility] [address] [id number] [place] [address]- 1441 Apr, [facility] [place] [facility] [address] [id number] [place] [address]- 9464 Apr, [facility] [place] [facility] [address] [id number] [place] [address]- 2100 Apr, [facility] [place] [facility] [address] [id number] [place] [address]- 9208 Apr, [facility] [place] [facility] [address] [id number] [place] [address]- 5838 Apr, [facility] [place] [facility] [address] [id number] [place] [address]- 5254 Apr, [facility] [place] [facility] [address] [id number] [place] [address]- 7338 Apr, [facility] [place] [facility] [address] [id number] [place] [address]- 7214 Apr, [facility] [place] [facility] [address] [id number] [place] [address]- 3413 Mar, [facility] [place] [facility] [address] [id number] [place] [address]- 0428 Mar, [facility] [place] [facility] [address] [id number] [place] [address]- 8778 Mar, [facility] [place] [facility] [address] [id number] [place] [address]- 6784 Mar, [facility] [place] [facility] [address] [id number] [place] [address]- 5084 Mar, [facility] [place] [facility] [address] [id number] [place] [address]- 1797 Mar, [facility] [place] [facility] [address] [id number] [place] [address]- 4250 Mar, [facility] [place] [facility] [address] [id number] [place] [address]- 7664 Mar, [facility] [place] [facility] [address] [id number] [place] [address]- 5683 15 Mar, 2014 [facility] [place] [facility] [address] [id number] [place] [address]- 6325 15 Mar, 2014 [facility] [place] [facility] [address] [id number] [place] [address]- 3779 15 Mar, 2014 [facility] [place] [facility] [address] [id number] [place] [address]- 6863 15 Mar, 2014 [facility] [place] [facility] [address] [id number] [place] [address]- 4843 11 Mar, 2014 [facility] [place] [facility] [address] [id number] [place] [address]- 9905 Mar, [facility] [place] [facility] [address] [id number] [place] [address]- 8834 Mar, [facility] [place] [facility] [address] [id number] [place] [address]- 8308 Mar, [facility] [place] [facility] [address] [id number] [place] [address]- 0918 Feb, [facility] [place] [facility] [address] [id number] [place] [address]- 4658 Feb, [facility] [place] [facility] [address] [id number] [place] [address]- 4747 Feb, [facility] [place] [facility] [address] [id number] [place] [address]- 7279 Feb, [facility] [place] [facility] [address] [id number] [place] [address]- 6798 Feb, [facility] [place] [facility] [address] [id number] [place] [address]- 6822 Feb, [facility] [place] [facility] [address] [id number] [place] [address]- 4083 Feb, [facility] [place] [facility] [address] [id number] [place] [address]- 4414 Feb, [facility] [place] [facility] [address] [id number] [place] [address]- 1287 Feb, [facility] [place] [facility] [address] [id number] [place] [address]- 2947 Feb, [facility] [place] [facility] [address] [id number] [place] [address]- 5492 Feb, [facility] [place] [facility] [address] [id number] [place] [address]- 6733 Feb, [facility] [place] [facility] [address] [id number] [place] [address]- 5432 Feb, [facility] [place] [facility] [address] [id number] [place] [address]- 6052 14 Feb, 2014 [facility] [place] [facility] [address] [id number] [place] [address]- 6023 14 Feb, 2014 [facility] [place] [facility] [address] [id number] [place] [address]- 5325 14 Feb, 2014 [facility] [place] [facility] [address] [id number] [place] [address]- 8009 Feb, [facility] [place] [facility] [address] [id number] [place] [address]- 3925 Feb, [facility] [place] [facility] [address] [id number] [place] [address]- 7871 Feb, [facility] [place] [facility] [address] [id number] [place] [address]- 1578 Feb, [facility] [place] [facility] [address] [id number] [place] [address]- 4863 Feb, [facility] [place] [facility] [address] [id number] [place] [address]- 4358 Jan, [facility] [place] [facility] [address] [id number] [place] [address]- 1034 Jan, [facility] [place] [facility] [address] [id number] [place] [address]- 2360 Jan, [facility] [place] [facility] [address] [id number] [place] [address]- 9636 Jan, [facility] [place] [facility] [address] [id number] [place] [address]- 5105 Jan, [facility] [place] [facility] [address] [id number] [place] [address]- 2829 Jan, [facility] [place] [facility] [address] [id number] [place] [address]- 7793 Jan, [facility] [place] [facility] [address] [id number] [place] [address]- 0199 Jan, [facility] [place] [facility] [address] [id number] [place] [address]- 7040 20 Jan, 2013 [facility] [place] [facility] [address] [id number] [place] [address]- 0015 20 Jan, 2013 [facility] [place] [facility] [address] [id number] [place] [address]- 6906 17 Jan, 2013 [facility] [place] [facility] [address] [id number] [place] [address]- 2332 17 Jan, 2013 [facility] [place] [facility] [address] [id number] [place] [address]- 7667 17 Jan, 2013 [facility] [place] [facility] [address] [id number] [place] [address]- 5154 17 Jan, 2013 [facility] [place] [facility] [address] [id number] [place] [address]- 2094 15 Jan, 2014 [facility] [place] [facility] [address] [id number] [place] [address]- 4105 15 Jan, 2014 [facility] [place] [facility] [address] [id number] [place] [address]- 5505 14 Jan, 2014 [facility] [place] [facility] [address] [id number] [place] [address]- 7793 14 Jan, 2014 [facility] [place] [facility] [address] [id number] [place] [address]- 7760 13 Jan, 2014 [facility] [place] [facility] [address] [id number] [place] [address]- 0756 13 Jan, 2014 [facility] [place] [facility] [address] [id number] [place] [address]- 7412 13 Jan, 2014 [facility] [place] [facility] [address] [id number] [place] [address]- 8538 13 Jan, 2014 [facility] [place] [facility] [address] [id number] [place] [address]- 8907 10 Jan, 2013 [facility] [place] [facility] [address] [id number] [place] [address]- 1753 02 Jan, 2014 [facility] [place] [facility] [address] [id number] [place] [address]- 3109 02 Jan, 2014 [facility] [place] [facility] [address] [id number] [place] [address]- 2805 25 Dec, 2013 [facility] [place] [facility] [address] [id number] [place] [address]- 1390 25 Dec, 2013 [facility] [place] [facility] [address] [id number] [place] [address]- 4436 23 Dec, 2013 [facility] [place] [facility] [address] [id number] [place] [address]- 9114 23 Dec, 2013 [facility] [place] [facility] [address] [id number] [place] [address]- 4948 19 Dec, 2013 [facility] [place] [facility] [address] [id number] [place] [address]- 3559 19 Dec, 2013 [facility] [place] [facility] [address] [id number] [place] [address]- 8022 17 Dec, 2013 [facility] [place] [facility] [address] [id number] [place] [address]- 5939 17 Dec, 2013 [facility] [place] [facility] [address] [id number] [place] [address]- 6169 09 Sep, 2013 [facility] [place] [facility] [address] [id number] [place] [address]- 6039 09 Sep, 2013 [facility] [place] [facility] [address] [id number] [place] [address]- 2548 08 Sep, 2013 [facility] [place] [facility] [address] [id number] [place] [address]- 7392 08 Sep, 2013 [facility] [place] [facility] [address] [id number] [place] [address]- 6455 04 Sep, 2013 [facility] [place] [facility] [address] [id number] [place] [address]- 6272 04 Sep, 2013 [facility] [place] [facility] [address] [id number] [place] [address]- 1473 Dec, 2013 [facility] [place] [facility] [address] [id number] [place] [address]- 4691 Dec, 2013 [facility] [place] [facility] [address] [id number] [place] [address]- 8830 Dec, 2013 [facility] [place] [facility] [address] [id number] [place] [address]- 1543 Dec, 2013 [facility] [place] [facility] [address] [id number] [place] [address]- 0838 Nov, [facility] [place] [facility] [address] [id number] [place] [address]- 2572 Nov, [facility] [place] [facility] [address] [id number] [place] [address]- 5589 Nov, [facility] [place] [facility] [address] [id number] [place] [address]- 0162 Nov, [facility] [place] [facility] [address] [id number] [place] [address]- 3046 Nov, [facility] [place] [facility] [address] [id number] [place] [address]- 5856 Nov, [facility] [place] [facility] [address] [id number] [place] [address]- 6412 Nov, [facility] [place] [facility] [address] [id number] [place] [address]- 4506 Nov, [facility] [place] [facility] [address] [id number] [place] [address]- 3353 Nov, [facility] [place] [facility] [address] [id number] [place] [address]- 9528 Nov, [facility] [place] [facility] [address] [id number] [place] [address]- 2786 Nov, [facility] [place] [facility] [address] [id number] [place] [address]- 5141 Nov, [facility] [place] [facility] [address] [id number] [place] [address]- 6417 Oct, [facility] [place] [facility] [address] [id number] [place] [address]- 3645 Oct, [facility] [place] [facility] [address] [id number] [place] [address]- 4571 Oct, [facility] [place] [facility] [address] [id number] [place] [address]- 1441 Oct, [facility] [place] [facility] [address] [id number] [place] [address]- 4845 Oct, [facility] [place] [facility] [address] [id number] [place] [address]- 5990 Oct, [facility] [place] [facility] [address] [id number] [place] [address]- 6150 Oct, [facility] [place] [facility] [address] [id number] [place] [address]- 7731 Oct, [facility] [place] [facility] [address] [id number] [place] [address]- 0320 Oct, [facility] [place] [facility] [address] [id number] [place] [address]- 9200 Oct, [facility] [place] [facility] [address] [id number] [place] [address]- 7693 Oct, [facility] [place] [facility] [address] [id number] [place] [address]- 2124 Oct, [facility] [place] [facility] [address] [id number] [place] [address]- 0426 Oct, [facility] [place] [facility] [address] [id number] [place] [address]- 6023 Oct, [facility] [place] [facility] [address] [id number] [place] [address]- 1403 Oct, [facility] [place] [facility] [address] [id number] [place] [address]- 9012 13 Oct, 2013 [facility] [place] [facility] [address] [id number] [place] [address]- 9891 2013 [facility] [place] [facility] [address] [id number] [place] [address]- 2407 27 Sep, 2013 [facility] [place] [facility] [address] [id number] [place] [address]- 1363 Sep, [facility] [place] [facility] [address] [id number] [place] [address]- 8132 Sep, [facility] [place] [facility] [address] [id number] [place] [address]- 0139 Sep, [facility] [place] [facility] [address] [id number] [place] [address]- 5255 18 Sep, 2013 [facility] [place] [facility] [address] [id number] [place] [address]- 1041 18 Sep, 2013 [facility] [place] [facility] [address] [id number] [place] [address]- 3924 17 Sep, 2013 [facility] [place] [facility] [address] [id number] [place] [address]- 4030 17 Sep, 2013 [facility] [place] [facility] [address] [id number] [place] [address]- 5394 Sep, [facility] [place] [facility] [address] [id number] [place] [address]- 9960 Sep, [facility] [place] [facility] [address] [id number] [place] [address]- 9938 11 Sep, 2013 [facility] [place] [facility] [address] [id number] [place] [address]- 4811 Sep, [facility] [place] [facility] [address] [id number] [place] [address]- 0936 10 Sep, 2013 [facility] [place] [facility] [address] [id number] [place] [address]- 8863 10 Sep, 2013 [facility] [place] [facility] [address] [id number] [place] [address]- 3766 Sep, [facility] [place] [facility] [address] [id number] [place] [address]- 8118 Sep, [facility] [place] [facility] [address] [id number] [place] [address]- 1083 Sep, [facility] [place] [facility] [address] [id number] [place] [address]- 3728 Sep, [facility] [place] [facility] [address] [id number] [place] [address]- 3287 Sep, [facility] [place] [facility] [address] [id number] [place] [address]- 2625 Sep, [facility] [place] [facility] [address] [id number] [place] [address]- 0296 Sep, [facility] [place] [facility] [address] [id number] [place] [address]- 8930 Sep, [facility] [place] [facility] [address] [id number] [place] [address]- 2317 August, [facility] [place] [facility] [address] [id number] [place] [address]- 5405 August, [facility] [place] [facility] [address] [id number] [place] [address]- 8904 August, [facility] [place] [facility] [address] [id number] [place] [address]- 2369 August, [facility] [place] [facility] [address] [id number] [place] [address]- 7342 August, [facility] [place] [facility] [address] [id number] [place] [address]- 1569 August, [facility] [place] [facility] [address] [id number] [place] [address]- 8143 August, [facility] [place] [facility] [address] [id number] [place] [address]- 8701 August, [facility] [place] [facility] [address] [id number] [place] [address]- 3903 August, [facility] [place] [facility] [address] [id number] [place] [address]- 1877 August, [facility] [place] [facility] [address] [id number] [place] [address]- 7838 August, [facility] [place] [facility] [address] [id number] [place] [address]- 9744 Jul, [facility] [place] [facility] [address] [id number] [place] [address]- 9053 Jul, [facility] [place] [facility] [address] [id number] [place] [address]- 2893 Jul, [facility] [place] [facility] [address] [id number] [place] [address]- 9222 Jul, [facility] [place] [facility] [address] [id number] [place] [address]- 1694 Jul, [facility] [place] [facility] [address] [id number] [place] [address]- 0074 Jul, [facility] [place] [facility] [address] [id number] [place] [address] Jul, [facility] [place] [facility] [address] [id number] [place] [address] Jul, [facility] [place] [facility] [address] [id number] [place] [address] Jul, [facility] [place] [facility] [address] [id number] [place] [address] Jul, [facility] [place] [facility] [address] [id number] [place] [address] 16 Jul, 2013 [facility] [place] [facility] [address] [id number] [place] [address] Jul, [facility] [place] [facility] [address] [id number] [place] [address] 14 Jul, 2013 [facility] [address] [id number] [place] [address] Jul, [facility] [place] [facility] [address] [id number] [place] [address] Jul, [facility] [address] [id number] [place] [address] Jul, [facility] [place] [facility] [address] [id number] [place] [address] Jul, [facility] [address] [id number] [place] [address] Jul, [facility] [address] [id number] [place] [address] Jul, [facility] [place] [facility] [address] [id number] [place] [address] Jul, [facility] [address] [id number] [place] [address] Jul, [facility] [place] [facility] [address] [id number] [place] [address] Jul, [facility] [address] [id number] [place] [address] Jul, [facility] [place] [facility] [address] [id number] [place] [address] Jun, [facility] [place] [facility] [address] [id number] [place] [address] 8380 Jun, [facility] [place] [facility] [address] [id number] [place] [address]- [address] Jun, [facility] [place] [facility] [address] [id number] [place] [address] Jun, [facility] [place] [facility] [address] [id number] [place] [address] Jun, [facility] [place] [facility] [address] [id number] [place] [address]- [address] Jun, [facility] [place] [facility] [address] [id number] [place] [address]- 4[address] Jun, [facility] [place] [facility] [address] [id number] [place] [address]- [address] Jun, [facility] [place] [facility] [address] [id number] [place] [address] 4[address] Jun, [facility] [place] [facility] [address] [id number] [place] [address]- 8732 Jun, [facility] [place] [facility] [address] [id number] [place] [address]- 8544 Jun, [facility] [place] [facility] [address] [id number] [place] [address] Jun, [facility] [place] [facility] [address] [id number] [place] [address] May, [facility] [place] [facility] [address] [id number] [place] [address]169 May, [facility] [place] [facility] [address] [id number] [place] [address]- 45[address] Apr, [facility] [place] [facility] [address] [id number] [place] [address] 2769 Apr, [facility] [place] [facility] [address] [id number] [place] [address] 65[address] Apr, [facility] [place] [facility] [address] [id number] [place] [address] Apr, [facility] [place] [facility] [address] [id number] [place] [address] Apr, [facility] [place] [facility] [address] [id number] [place] [address] 8317 Apr, [facility] [place] [facility] [address] [id number] [place] [address] 7869 Apr, [facility] [address] [id number] [place] [address] 69[address] Apr, [facility] [place] [facility] [address] [id number] [place] [address] 8810 Apr, [facility] [address] [id number] [place] [address]99 Apr, [facility] [place] [facility] [address] [id number] [place] [address] Apr, [facility] [address] [id number] [place] [address] 26[address] Mar, [facility] [place] [facility] [address] [id number] [place] [address]- 74[address] Mar, [facility] [address] [id number] [place] [address]- [address] Mar, [facility] [place] [facility] [address] [id number] [place] [address]- [address] Mar, [facility] [address] [id number] [place] [address] Feb, [facility] [place] [facility] [address] [id number] [place] [address] Feb, [facility] [place] [facility] [address] [id number] [place] [address]- [address] Feb, [facility] [place] [facility] [address] [id number] [place] [address] Feb, [facility] [place] [facility] [address] [id number] [place] [address]- [address]278 Feb, [facility] [place] [facility] [address] [id number] [place] [address]- [address] 15 Feb, 2013 [facility] [place] [facility] [address] [id number] [place] [address] 15 Feb, 2013 [facility] [place] [facility] [address] [id number] [place] [address]- 67[address] Feb, [facility] [place] [facility] [address] [id number] [place] [address]- 8636 Feb, [facility] [place] [facility] [address] [id number] [place] [address]- 1096 Feb, [facility] [place] [facility] [address] [id number] [place] [address]- 6934 Feb, [facility] [place] [facility] [address] [id number] [place] [address] Jan, [facility] [place] [facility] [address] [id number] [place] [address]- 268[address] Jan, [facility] [place] [facility] [address] [id number] [place] [address]- 67[address] Jan, [facility] [place] [facility] [address] [id number] [place] [address] 1738 Jan, [facility] [place] [facility] [address] [id number] [place] [address] Jan, [facility] [place] [facility] [address] [id number] [place] [address] Jan, [facility] [place] [facility] [address] [id number] [place] [address] Jan, [facility] [place] [facility] [address] [id number] [place] [address] Jan, [facility] [place] [facility] [address] [id number] [place] [address] 30 Dec, 2012 [facility] [place] [facility] [address] [id number] [place] [address] 2546 25 Dec, 2012 [facility] [place] [facility] [address] [id number] [place] [address] 2544 18 Dec, 2012 [facility] [place] [facility] [address] [id number] [place] [address] 1473 17 Dec, 2012 [facility] [place] [facility] [address] [id number] [place] [address] 8595 17 Dec, 2012 [facility] [place] [facility] [address] [id number] [place] [address]- 5767 16 Dec, 2012 [facility] [place] [facility] [address] [id number] [place] [address]- 2906 13 Dec, 2012 [facility] [place] [facility] [address] [id number] [place] [address] 1449 11 Dec, 2012 [facility] [place] [facility] [address] [id number] [place] [address]- 7435 05 Dec, 2012 [facility] [place] [facility] [address] [id number] [place] [address]- 8306 04 Dec, 2012 [facility] [place] [facility] [address] [id number] [place] [address] 4160 30 Nov, 2012 [facility] [place] [facility] [address] [id number] [place] [address]- 6836 29 Nov, 2012 [facility] [place] [facility] [address] [id number] [place] [address] 9033 Nov, [facility] [place] [facility] [address] [id number] [place] [address] 4317 Nov, [facility] [place] [facility] [address] [id number] [place] [address] 1543 14 Nov, 2012 [facility] [place] [facility] [address] [id number] [place] [address] Nov, [facility] [place] [facility] [address] [id number] [place] [address] 8557 Nov, [facility] [place] [facility] [address] [id number] [place] [address] 4753 Oct, [facility] [place] [facility] [address] [id number] [place] [address]- 4342 Oct, [facility] [place] [facility] [address] [id number] [place] [address]- 2943 24 Oct, 2012 [facility] [address] [id number] [place] [address]- 8503 17 Oct, 2012 [facility] [place] [facility] [address] [id number] [place] [address]- 7591 15 Oct, 2012 [facility] [place] [facility] [address] [id number] [place] [address]- 7155 Oct, [facility] [place] [facility] [address] [id number] [place] [address]- 9767 Sep, [facility] [place] [facility] [address] [id number] [place] [address] 6475 Sep, [facility] [place] [facility] [address] [id number] [place] [address]- 2352 Sep, [facility] [address] [id number] [place] [address]- 2113 14 Sep, 2012 [facility] [place] [facility] [address] [id number] [place] [address]- 0994 13 Sep, 2012 [facility] [place] [facility] [address] [id number] [place] [address]- 8941 10 Sep, 2012 [facility] [place] [facility] [address] [id number] [place] [address]- 5525 07 Sep, 2012 [facility] [place] [facility] [address] [id number] [place] [address]- 1824 Sep, [facility] [place] [facility] [address] [id number] [place] [address]- 1177 05 Sep, 2012 [facility] [place] [facility] [address] [id number] [place] [address] 8001 August, [facility] [place] [facility] [address] [id number] [place] [address]- 0994 August, [facility] [place] [facility] [address] [id number] [place] [address] 0363 August, [facility] [address] [id number] [place] [address]- 2546 August, [facility] [address] [id number] [place] [address]- 2546 August, [facility] [address] [id number] [place] [address]- 2546 August, [facility] [address] [id number] [place] [address]- 2546 August, [facility] [address] [id number] [place] [address]- 2546 August, [facility] [address] [id number] [place] [address] Jul, [facility] [address] [facility] [id number] [place] [address] Jul, [address] [id number] Jul [facility] [address] [id number] [place] [address] 4561 Jun, [facility] [address] [id number] [place] [address]- 9356 Jun, [facility] [address] [id number] [place] [address]- 2546 Jun, [facility] [address] [id number] [place] [address]- 2546 Jun, [facility] [address] [id number] [place] [address]- 2546 Jun, [facility] [address] [id number] [place] [address]- 2546 Jun, [facility] [address] [id number] [place] [address]- 2546 May, [facility] [address] [id number] [place] [address]- 0562 May, [facility] [address] [id number] [place] [address]- 9349 May, [facility] [place] [facility] [address] [id number] [place] [address]- 9106 May, [facility] [place] [facility] [address] [facility] [id number] [place] [address]- 1095 May, [facility] [place] [facility] [address] [id number] [place] [address]- 7957 Apr, [facility] [place] [facility] [address] [id number] [place] [address]- 1103 Apr, [facility] [place] [facility] [address] [id number] [place] [address]- 4271 Apr, [facility] [place] [facility] [address] [id number] [place] [address]- 9277 Apr, [facility] [place] [facility] [address] [id number] [place] [address]- 3130 Apr, [facility] [address] [id number] [place] [address]- 5118 Apr, [facility] [place] [facility] [address] [id number] [place] [address]- 0954 Mar, [facility] [address] [id number] [place] [address]- 4060 Mar, [facility] [place] [facility] [address] [id number] [place] [address] 4825 Mar, [facility] [place] [facility] [address] [id number] [place] [address]- 1341 Mar, [facility] [place] [facility] [address] [id number] [place] [address]- 5689 Mar, [facility] [place] [facility] [address] [id number] [place] [address]- 3710 Mar, [facility] [place] [facility] [address] [id number] [place] [address]- 5851 18 Mar, 2012 [facility] [address] [id number] [place] [address]- 7586 Mar, [facility] [place] [facility] [address] [id number] [place] [address]- 4806 Mar, [facility] [address] [id number] [place] [address]- 7056 05 Mar, 2012 [facility] [place] [facility] [address] [id number] [place] [address]- 3474 Mar, [facility] [place] [facility] [address] [id number] [place] [address]- 6988 Feb, [facility] [place] [facility] [address] [id number] [place] [address]- 6622 Feb, [facility] [place] [facility] [address] [id number] [place] [address]- 0408 Feb, [facility] [place] [facility] [address] [id number] [place] [address]- 0483 Feb, [facility] [place] [facility] [address] [id number] [place] [address]- 5521 Feb, [facility] [place] [facility] [address] [id number] [place] [address]- 9102 Feb, [facility] [place] [facility] [address] [id number] [place] [address] 2543 Feb, [facility] [place] [facility] [address] [id number] [place] [address]- 7191 Feb, [facility] [place] [facility] [address] [id number] [place] [address]- 3837 Feb, [facility] [place] [facility] [address] [id number] [place] [address]- 6172 Feb, [facility] [place] [facility] [address] [id number] [place] [address]- 2831 Feb, [facility] [place] [facility] [address] [id number] [place] [address]- 7791 Jan, [facility] [place] [facility] [address] [id number] [place] [address]- 8785 Jan, [facility] [place] [facility] [address] [id number] [place] [address]- 6840 Jan, [facility] [place] [facility] [address] [id number] [place] [address]- 6883 Jan, [facility] [place] [facility] [address] [id number] [place] [address]- 1437 Jan, [facility] [place] [facility] [address] [id number] [place] [address]- 9893 Jan, [facility] [place] [facility] [address] [id number] [place] [address]- 8123 Jan, [facility] [place] [facility] [address] [id number] [place] [address]- 0778 24 Dec, 2011 [facility] [place] [facility] [address] [id number] [place] [address]- 9150 17 Dec, 2011 [facility] [place] [facility] [address] [id number] [place] [address]- 9162 13 Dec, 2011 [facility] [place] [facility] [address] [id number] [place] [address]- 9926 Dec, [facility] [place] [facility] [address] [id number] [place] [address]- 1993 Nov, [facility] [place] [facility] [address] [id number] [place] [address]- 6632 Nov, [facility] [place] [facility] [address] [id number] [place] [address]- 8267 Nov, [facility] [place] [facility] [address] [id number] [place] [address]- 1273 15 Nov, 2011 [facility] [place] [facility] [address] [id number] [place] [address]- 7862 Nov, [facility] [place] [facility] [address] [id number] [place] [address]- 4391 Nov, [facility] [place] [facility] [address] [id number] [place] [address]- 0748 Nov, [facility] [place] [facility] [address] [id number] [place] [address]- 1845 Nov, [facility] [place] [facility] [address] [id number] [place] [address]- 2264 Nov, [facility] [place] [facility] [address] [id number] [place] [address]- 5612 Nov, [facility] [place] [facility] [address] [id number] [place] [address]- 7689 Nov, [facility] [place] [facility] [address] [id number] [place] [address]- 3307 Nov, [facility] [place] [facility] [address] [id number] [place] [address]- 9415 Nov, [facility] [place] [facility] [address] [id number] [place] [address]- 7587 Oct, [facility] [place] [facility] [address] [id number] [place] [address]- 2889 Oct, [facility] [place] [facility] [address] [id number] [place] [address]- 8569 Oct, [facility] [place] [facility] [address] [id number] [place] [address]- 8190 Oct, [facility] [place] [facility] [address] [id number] [place] [address]- 2777 Oct, [facility] [place] [facility] [address] [id number] [place] [address]- 1099 Oct, [facility] [place] [facility] [address] [id number] [place] [address]- 4057 Oct, [facility] [place] [facility] [address] [id number] [place] [address]- 7886 Oct, [facility] [place] [facility] [address] [id number] [place] [address]- 2668 Oct, [facility] [place] [facility] [address] [id number] [place] [address]- 9536 Sep, [facility] [place] [facility] [address] [id number] [place] [address]- 6871 Sep, [facility] [place] [facility] [address] [id number] [place] [address]- 7941 Sep, [facility] [place] [facility] [address] [id number] [place] [address]- 1754 Sep, [facility] [place] [facility] [address] [id number] [place] [address]- 6196 Sep, [facility] [place] [facility] [address] [id number] [place] [address]- 7942 Sep, [facility] [place] [facility] [address] [id number] [place] [address]- 0376 Sep, [facility] [place] [facility] [address] [id number] [place] [address]- 2404 Sep, [facility] [place] [facility] [address] [id number] [place] [address] August, [facility] [place] [facility] [address] [id number] [place] [address]- 5991 August, [facility] [place] [facility] [address] [id number] [place] [address]- 3284 August, [facility] [place] [facility] [address] [id number] [place] [address]- 2681 August, [facility] [place] [facility] [address] [id number] [place] [address]- 9526 August, [facility] [place] [facility] [address] [id number] [place] [address]- 1060 August, [facility] [address] [facility] [id number] [place] [address] August, [facility] [address] [id number] [place] [address] August, [facility] [address] [facility] [id number] [place] [address]- 3591 August, [facility] [address] [id number] [place] [address]- 8064 August, [facility] [address] [facility] [id number] [place] [address]- 0532 August, [facility] [id number] [place] [address] August, [facility] [address] [id number] [place] [address]- 6906 Oct, IMMUNIZATIONS No Known Immunizations SOCIAL HISTORY Never Assessed REASON FOR VISIT [facility] PLAN OF CARE VITAL SIGNS MEDICATIONS Medication Instructions Dosage Frequency Start Date End Date Duration Status Naproxen 500 MG Orally every 12 hrs 1 tablet with food or milk as needed 12h Apr, Active DiphenhydrAMINE HCl 25 MG Orally 2 times a day 1 tablet as needed 12Apr, Active RESULTS No Results PROCEDURES No Known [...] Hospitalization History suicidal ideations-[place] 12/28 Hospitalization History hypoxia--[facility] 02/13/2016 Hospitalization History shortness of breath at june 2016 Hospitalization History [facility] breath at [facility] august 2016 Hospitalization History SOB, chest pain at [facility] 12/2016
--- OUTSIDE RECORDS SUMMARY | 2017-11-24 18:08 | XMS REPORT ---
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 [facility] [address] 37450- 6458 Dec, Affective disorder 296.90 [facility] [address] [address] 2546 04 Dec, 2014 [facility] [id number] [address] 2546 Dec, 2014 [facility] [address] [address] 2546 Dec, 2014 [facility] [id number] [place] [address] 61581 2546 Dec, 2014 [facility] [id number] [place] [address] 52591- 2196 Nov, Affective disorder 296.90 [facility] [id number] [place] [address] 64770 2549 Nov, [facility] [id number] [place] [address] 19099 2547 Nov, Affective disorder 296.90 [facility] [address] [address] 2546 Nov, Diarrhea 787.91 [facility] [id number] [place] [address] 78304 2548 Nov, [facility] [address] [address] 2546 Nov, Diarrhea 787.91 [facility] [id number] [place] [address] 70482 2546 Nov, Diarrhea 787.91 and Hyperlipidemia 272.4 [facility] [id number] [place] [address] 89088 2546 Nov, Diarrhea 787.91 [facility] [id number] [address] 2546 Nov, Affective disorder 296.90 [facility] [address] [address]- 4666 Nov, Affective disorder 296.90 [facility] [address] [address]- 9687 Nov, Affective disorder 296.90 [facility] [id number] [address]- 2811 Nov, [facility] [id number] [address]- 4792 Nov, [facility] [id number] [address]- 7891 Nov, [facility] [id number] [place] [address] 50454- 1155 Nov, Episodic mood disorder 296.90 [facility] [id number] [address]- 8740 Nov, [facility] [id number] [place] [address] 91588- 5094 Nov, [facility] [address] [address]- 5845 Nov, [facility] [id number] [place] [address] 28960- 2509 Nov, [facility] [address] [address]- 4866 Nov, [facility] [id number] [place] [address] 34022- 3950 Nov, Lymphedema 457.1 ; Hyperlipidemia 272.4 ; Essential hypertension, benign 401.1 and Numbness of toes 782.0 [facility] [address] [address]- 7493 Nov, Episodic mood disorder 296.90 [facility] [address] [address]- 0947 Oct, [facility] [id number] [address]- 4304 Oct, 2014 [facility] [address] [facility] [id number] [place] [address]- 1448 15 Oct, 2014 [facility] [place] [facility] [address] [facility] [id number] [place] [address]- 7959 Oct, 2014 [facility] [address] [facility] [id number] [place] [address]- 8966 14 Oct, 2014 [facility] [address] [facility] [id number] [place] [address]- 9337 Oct, 2014 [facility] [address] [facility] [id number] [place] [address]- 6452 Oct, 2014 [facility] [address] [facility] [id number] [place] [address]- 5985 Oct, 2014 [facility] [address] [facility] [id number] [place] [address]- 7128 Oct, Episodic mood disorder 296.90 [facility] [address] [facility] [id number] [place] [address]- 7674 30 Sep, 2014 [facility] [address] [facility] [id number] [place] [address]- 4454 Sep, [facility] [address] [facility] [id number] [place] [address]- 1992 Sep, [facility] [address] [facility] [id number] [place] [address]- 6377 Sep, [facility] [place] [facility] [address] [facility] [id number] [place] [address]- 3302 Sep, [facility] [place] [facility] [address] [facility] [id number] [place] [address]- 0118 Sep, Episodic mood disorder 296.90 [facility] [place] [facility] [address] [facility] [id number] [place] [address]- 2312 Sep, Unspecified episodic mood disorder 296.90 [facility] [address] [facility] [id number] [place] [address]- 2497 Sep, [facility] [address] [address]- 6670 Sep, [facility] [id number] [place] [address] 97594- 6259 Sep, Episodic mood disorder 296.90 [facility] [id number] [place] [address] 53197- 4329 Sep, [facility] [id number] [place] [address] 01067- 8298 Sep, [facility] [id number] [place] [address] 27729- 5252 Sep, [facility] [id number] [place] [address] 51680- 5308 Sep, Hematemesis 578.0 and Vomiting 787.03 [facility] [id number] [place] [address] 00525- 2822 Sep, Episodic mood disorder 296.90 [facility] [id number] [place] [address] 23308- 8906 Sep, [facility] [id number] [place] [address] 83590- 1524 Sep, [facility] [address] [address]- 8482 Sep, Diabetes mellitus without mention of complication, type II or unspecified type, not stated as uncontrolled 250.00 and Other chronic pain 338.29 [facility] [address] [address]- 4596 05 Sep, 2014 Episodic mood disorder 296.90 [facility] [id number] [place] [address] 28717- 9856 Sep, [facility] [address] [address]- 9415 Sep, Episodic mood disorder 296.90 [facility] [id number] [address]- 8115 Sep, [facility] [id number] [address]- 3188 August, [facility] [id number] [address]- 9817 August, [facility] [address] [address]- 1137 August, Episodic mood disorder 296.90 [facility] [id number] [address]- 4211 August, [facility] [address] [address]- 4829 August, Unspecified episodic mood disorder 296.90 [facility] [id number] [address]- 4827 August, Vomiting 787.03 [facility] [address] [address]- 5838 August, [facility] [id number] [address]- 7472 August, [facility] [address] [address]- 3746 August, [facility] [id number] [address]- 9420 August, [facility] [id number] [address]- 1408 August, [facility] [id number] [place] [address]- 8247 Jul, [facility] [id number] [address]- 2776 Jul, [facility] [id number] [address]- 5371 Jul, [facility] [id number] [place] [address]- 2194 30 Jun, 2014 [facility] [place] [facility] [address] [id number] [place] [address]- 9070 30 Jun, 2014 [facility] [place] [facility] [address] [id number] [place] [address]- 6246 Jun, [facility] [place] [facility] [address] [id number] [place] [address]- 8736 Jun, 2014 [facility] [place] [facility] [address] [id number] [place] [address]- 3275 Jun, [facility] [place] [facility] [address] [id number] [place] [address]- 9719 Jun, [facility] [place] [facility] [address] [id number] [place] [address]- 7239 Jun, [facility] [place] [facility] [address] [id number] [place] [address]- 5256 Jun, [facility] [place] [facility] [address] [id number] [place] [address]- 9052 Jun, [facility] [place] [facility] [address] [id number] [place] [address]- 1138 Jun, [facility] [place] [facility] [address] [id number] [place] [address]- 1706 Jun, [facility] [place] [facility] [address] [id number] [place] [address]- 6259 Jun, [facility] [place] [facility] [address] [id number] [place] [address]- 8252 Jun, [facility] [place] [facility] [address] [id number] [place] [address]- 7150 Jun, [facility] [place] [facility] [address] [id number] [place] [address]- 7146 Jun, [facility] [place] [facility] [address] [id number] [place] [address]- 0553 Jun, [facility] [place] [facility] [address] [id number] [place] [address] 23 Jun, 2014 [facility] [place] [facility] [address] [id number] [place] [address] 23 Jun, 2014 [facility] [place] [facility] [address] [id number] [place] [address] 23 Jun, 2014 [facility] [place] [facility] [address] [id number] [place] [address] 21 Jun, 2014 [facility] [place] [facility] [address] [id number] [place] [address] 21 Jun, 2014 [facility] [place] [facility] [address] [id number] [place] [address] 3661 20 Jun, 2014 [facility] [place] [facility] [address] [id number] [place] [address]- 1048 20 Jun, 2014 [facility] [place] [facility] [address] [id number] [place] [address] 5532 20 Jun, 2014 [facility] [place] [facility] [address] [id number] [place] [address]- [address]79 20 Jun, 2014 [facility] [place] [facility] [address] [id number] [place] [address]- [address]133 19 Jun, 2014 [facility] [place] [facility] [address] [id number] [place] [address]- 8681 19 Jun, 2014 [facility] [place] [facility] [address] [id number] [place] [address]- 0499 18 Jun, 2014 [facility] [place] [facility] [address] [id number] [place] [address]- 4[address] 18 Jun, 2014 [facility] [place] [facility] [address] [id number] [place] [address]- [address]323 17 Jun, 2014 [facility] [place] [facility] [address] [id number] [place] [address]- 6125 17 Jun, 2014 [facility] [place] [facility] [address] [id number] [place] [address]- 9776 16 Jun, 2014 [facility] [place] [facility] [address] [id number] [place] [address]- 5821 16 Jun, 2014 [facility] [place] [facility] [address] [id number] [place] [address]- 7254 16 Jun, 2014 [facility] [place] [facility] [address] [id number] [place] [address]- 5011 16 Jun, 2014 [facility] [place] [facility] [address] [id number] [place] [address]- 2902 16 Jun, 2014 [facility] [place] [facility] [address] [id number] [place] [address]- 3047 Jun, [facility] [place] [facility] [address] [id number] [place] [address]- [address] Jun, [facility] [place] [facility] [address] [id number] [place] [address]- [address]35 Jun, [facility] [place] [facility] [address] [id number] [place] [address]- 7297 Jun, [facility] [place] [facility] [address] [id number] [place] [address]- [address]348 Jun, [facility] [place] [facility] [address] [id number] [place] [address]- 4061 Jun, [facility] [place] [facility] [address] [id number] [place] [address]- 2808 Jun, [facility] [place] [facility] [address] [id number] [place] [address]- 7987 Jun, 2014 [facility] [place] [facility] [address] [id number] [place] [address]- [address]226 Jun, [facility] [place] [facility] [address] [id number] [place] [address]- [address]276 Jun, [facility] [place] [facility] [address] [id number] [place] [address]- [address] Jun, [facility] [place] [facility] [address] [id number] [place] [address]- 9610 05 Jun, 2014 [facility] [place] [facility] [address] [id number] [place] [address]- 5615 Jun, [facility] [place] [facility] [address] [id number] [place] [address]- 0899 Jun, [facility] [place] [facility] [address] [id number] [place] [address]- 0465 Jun, [facility] [place] [facility] [address] [id number] [place] [address]- 6258 Jun, [facility] [place] [facility] [address] [id number] [place] [address]- 7435 Jun, [facility] [place] [facility] [address] [facility] [id number] [place] [address]- 1372 Jun, [facility] [place] [facility] [address] [id number] [place] [address]- 8107 Jun, [facility] [place] [facility] [address] [facility] [id number] [place] [address]- 3340 Jun, [facility] [place] [facility] [address] [id number] [place] [address]- 0734 Jun, [facility] [place] [facility] [address] [facility] [facility] [id number] [place] [address] May, [facility] [place] [facility] [address] [id number] [place] [address] 0980 May, [facility] [place] [facility] [address] [id number] [place] [address]- 4363 May, [facility] [place] [facility] [address] [id number] [place] [address] 4501 May, [facility] [place] [facility] [address] [facility] [id number] [place] [address]- 4274 May, [facility] [place] [facility] [address] [id number] [place] [address]- 5953 b, 2014 [facility] [place] [facility] [address] [facility] [id number] [place] [address]- 5235 20 May, 2014 [facility] [place] [facility] [address] [facility] [id number] [place] [address]- 7176 20 May, 2014 [facility] [place] [facility] [address] [facility] [id number] [place] [address]- 5438 20 May, 2014 [facility] [place] [facility] [address] [facility] [id number] [place] [address]- 1505 20 May, 2014 [facility] [place] [facility] [address] [facility] [id number] [place] [address]- 1344 18 May, 2014 [facility] [place] [facility] [address] [facility] [id number] [place] [address]- 2931 18 May, 2014 [facility] [place] [facility] [address] [id number] [place] [address]- 1096 13 May, 2014 [facility] [place] [facility] [address] [facility] [id number] [place] [address]- 7573 13 May, 2014 [facility] [place] [facility] [address] [facility] [id number] [place] [address]- 7636 11 May, 2014 [facility] [place] [facility] [address] [facility] [id number] [place] [address]- 2260 May, 2014 [facility] [place] [facility] [address] [facility] [id number] [place] [address]- 2226 May, 2014 [facility] [place] [facility] [address] [facility] [id number] [place] [address]- 2541 11 May, 2014 [facility] [place] [facility] [address] [facility] [id number] [place] [address]- 3053 09 May, 2014 [facility] [place] [facility] [address] [facility] [id number] [address]- [address] 09 May, 2014 [facility] [place] [facility] [address] [id number] [place] [address]- 7303 May, 2014 [facility] [place] [facility] [address] [id number] [place] [address]- 1588 May, [facility] [place] [facility] [address] [id number] [place] [address]- 5586 May, [facility] [place] [facility] [address] [id number] [place] [address]- 8798 May, 2014 [facility] [place] [facility] [address] [id number] [place] [address]- 7053 May, 2014 [facility] [place] [facility] [address] [id number] [place] [address]- 7173 May, [facility] [place] [facility] [address] [id number] [place] [address]- 0711 May, [facility] [place] [facility] [address] [id number] [place] [address]- 2690 Apr, [facility] [place] [facility] [address] [id number] [place] [address]- 5427 Apr, [facility] [place] [facility] [address] [id number] [place] [address]- 7632 Apr, [facility] [place] [facility] [address] [id number] [place] [address]- 3387 Apr, [facility] [place] [facility] [address] [id number] [address]- 3523 Apr, [facility] [place] [facility] [address] [id number] [place] [address]- 3215 Apr, [facility] [place] [facility] [address] [id number] [place] [address]- 3999 Apr, [facility] [place] [facility] [address] [id number] [place] [address]- 4850 Apr, [facility] [place] [facility] [address] [id number] [place] [address]- 2772 Apr, [facility] [place] [facility] [address] [id number] [place] [address]- 9249 15 Apr, 2014 [facility] [address] [id number] [place] [address]- 1624 Apr, [facility] [address] [id number] [place] [address]- 8690 Apr, [facility] [address] [id number] [place] [address]- 4949 Apr, [facility] [address] [id number] [place] [address]- 1161 Apr, [facility] [address] [id number] [place] [address]- 8227 Apr, [facility] [address] [id number] [place] [address]- 0699 Apr, [facility] [address] [id number] [place] [address]- 9807 Apr, [facility] [address] [id number] [place] [address]- 9856 Apr, [facility] [address] [id number] [place] [address]- 6028 Apr, [facility] [address] [id number] [place] [address]- 8042 Apr, [facility] [address] [id number] [place] [address]- 7961 Mar, [facility] [address] [id number] [place] [address]- 8699 Mar, [facility] [place] [facility] [address] [id number] [place] [address]- 1645 Mar, [facility] [place] [facility] [address] [id number] [place] [address]- 3419 Mar, [facility] [address] [id number] [place] [address]- 8449 Mar, [facility] [place] [facility] [address] [id number] [place] [address]- 0352 Mar, [facility] [place] [facility] [address] [id number] [place] [address]- 0834 Mar, [facility] [place] [facility] [address] [id number] [place] 0717 Mar, [facility] [place] [facility] [address] [id number] [place] [address]- 0975 Mar, [facility] [place] [facility] [address] [id number] [place] [address]- 8407 Mar, [facility] [place] [facility] [address] [id number] [place] [address]- 2911 Mar, [facility] [place] [facility] [address] [id number] [place] [address]- 3162 Mar, [facility] [place] [facility] [address] [id number] [place] [address]- 0131 Mar, [facility] [place] [facility] [address] [id number] [place] [address]- 1966 Mar, [facility] [place] [facility] [address] [id number] [place] [address]- 0261 Mar, [facility] [place] [facility] [address] [id number] [place] [address]- 8920 Mar, [facility] [place] [facility] [address] [id number] [place] [address]- 1971 Feb, [facility] [place] [facility] [address] [id number] [place] [address]- 9770 Feb, [facility] [place] [facility] [address] [id number] [place] 8466 Feb, [facility] [place] [facility] [address] [id number] [place] [address]- 8214 Feb, [facility] [place] [facility] [address] [id number] [address]- 7002 20 Feb, 2014 [facility] [place] [facility] [address] [id number] [place] [address]- 8701 19 Feb, 2014 [facility] [place] [facility] [address] [id number] [place] [address]- 2950 19 Feb, 2014 [facility] [place] [facility] [address] [id number] [place] [address]- 1492 18 Feb, 2014 [facility] [place] [facility] [address] [id number] [place] [address]- 9136 18 Feb, 2014 [facility] [place] [facility] [address] [id number] [place] [address]- 5290 17 Feb, 2014 [facility] [place] [facility] [address] [id number] [place] [address]- 5308 17 Feb, 2014 [facility] [place] [facility] [address] [id number] [place] [address]- 8511 17 Feb, 2014 [facility] [place] [facility] [address] [id number] [place] [address]- 2622 17 Feb, 2014 [facility] [place] [facility] [address] [id number] [place] [address]- 1423 14 Feb, 2014 [facility] [place] [facility] [address] [id number] [place] [address]- 7776 14 Feb, 2014 [facility] [place] [facility] [address] [id number] [place] [address]- 6182 14 Feb, 2014 [facility] [place] [facility] [address] [id number] [place] [address]- 4356 14 Feb, 2014 [facility] [place] [facility] [address] [id number] [place] [address]- 3918 10 Feb, 2014 [facility] [place] [facility] [address] [id number] [place] [address]- 1571 10 Feb, 2014 [facility] [place] [facility] [address] [id number] [place] [address]- 4132 04 Feb, 2014 [facility] [place] [facility] [address] [id number] [place] [address]- 7032 Feb, [facility] [place] [facility] [address] [id number] [place] [address]- 1764 Jan, [facility] [place] [facility] [address] [id number] [place] [address]- 6374 Jan, [facility] [place] [facility] [address] [id number] [place] [address]- 1189 Jan, [facility] [place] [facility] [address] [id number] [place] [address]- 5902 Jan, [facility] [place] [facility] [address] [id number] [place] [address]- 9436 Jan, [facility] [place] [facility] [address] [id number] [place] [address]- 5554 Jan, [facility] [place] [facility] [address] [id number] [place] [address]- 2780 Jan, [facility] [place] [facility] [address] [id number] [place] [address]- 4555 Jan, [facility] [place] [facility] [address] [id number] [place] [address]- 1607 Jan, [facility] [place] [facility] [address] [id number] [place] [address]- 6475 Jan, [facility] [place] [facility] [address] [id number] [place] [address]- 5558 Jan, [facility] [place] [facility] [address] [id number] [place] [address]- 6157 Jan, [facility] [place] [facility] [address] [id number] [place] [address]- 6668 Jan, [facility] [place] [facility] [address] [id number] [place] [address]- 2586 Jan, [facility] [place] [facility] [address] [id number] [place] [address]- 9771 Jan, [facility] [place] [facility] [address] [id number] [place] [address]- 7247 15 Jan, 2014 [facility] [place] [facility] [address] [id number] [place] [address]- 6298 14 Jan, 2014 [facility] [place] [facility] [address] [id number] [place] [address]- 7253 14 Jan, 2014 [facility] [place] [facility] [address] [id number] [place] [address]- 4946 13 Jan, 2014 [facility] [place] [facility] [address] [id number] [place] [address]- 9777 Jan, [facility] [place] [facility] [address] [id number] [place] [address]- 4766 Jan, [facility] [place] [facility] [address] [id number] [place] [address]- 1794 Jan, [facility] [place] [facility] [address] [id number] [place] [address]- 6996 10 Jan, 2014 [facility] [place] [facility] [address] [id number] [place] [address]- 3351 02 Jan, 2014 [facility] [place] [facility] [address] [id number] [place] [address]- 7620 02 Jan, 2014 [facility] [place] [facility] [address] [id number] [place] [address]- 4405 25 Dec, 2013 [facility] [place] [facility] [address] [id number] [place] [address]- 7849 25 Dec, 2013 [facility] [place] [facility] [address] [id number] [place] [address]- 9192 23 Dec, 2013 [facility] [place] [facility] [address] [id number] [place] [address]- 9009 23 Dec, 2013 [facility] [place] [facility] [address] [id number] [place] [address]- 5015 19 Dec, 2013 [facility] [place] [facility] [address] [id number] [place] [address]- 8067 19 Sep, 2013 [facility] [place] [facility] [address] [id number] [place] [address]- 8396 17 Sep, 2013 [facility] [place] [facility] [address] [id number] [place] [address]- 3596 17 Sep, 2013 [facility] [place] [facility] [address] [id number] [place] [address]- 4526 09 Sep, 2013 [facility] [place] [facility] [address] [id number] [place] [address]- 7253 09 Sep, 2013 [facility] [place] [facility] [address] [id number] [place] [address]- 9183 08 Sep, 2013 [facility] [place] [facility] [address] [id number] [place] [address]- 3034 08 Sep, 2013 [facility] [place] [facility] [address] [id number] [place] [address]- 0776 04 Sep, 2013 [facility] [place] [facility] [address] [id number] [place] [address]- 8319 04 Sep, 2013 [facility] [place] [facility] [address] [id number] [place] [address]- 5562 02 Sep, 2013 [facility] [place] [facility] [address] [id number] [place] [address]- 3099 02 Sep, 2013 [facility] [place] [facility] [address] [id number] [place] [address]- 0105 Dec, 2013 [facility] [place] [facility] [address] [id number] [place] [address]- 2541 Dec, 2013 [facility] [place] [facility] [address] [id number] [place] [address]- 7444 Nov, [facility] [place] [facility] [address] [id number] [place] [address]- 6646 Nov, [facility] [place] [facility] [address] [id number] [place] [address]- 8165 Nov, [facility] [place] [facility] [address] [id number] [place] [address]- 3510 Nov, [facility] [place] [facility] [address] [id number] [place] [address]- 5537 Nov, [facility] [place] [facility] [address] [id number] [facility] [place] [address]- 3036 Nov, [facility] [place] [facility] [address] [id number] [place] [address]- 3466 Nov, [facility] [place] [facility] [address] [id number] [place] [address]- 9262 Nov, [facility] [place] [facility] [address] [id number] [place] [address]- 3860 Nov, [facility] [place] [facility] [address] [id number] [place] [address]- 7994 Nov, [facility] [place] [facility] [address] [id number] [place] [address]- 1023 Nov, [facility] [place] [facility] [address] [id number] [place] [address]- 2715 Nov, [facility] [place] [facility] [address] [id number] [place] [address]- 5818 Oct, [facility] [place] [facility] [address] [id number] [place] [address]- 6859 Oct, [facility] [place] [facility] [address] [id number] [place] [address]- 5330 Oct, [facility] [place] [facility] [address] [id number] [place] [address]- 9000 Oct, [facility] [place] [facility] [address] [id number] [place] [address]- 4065 Oct, [facility] [place] [facility] [address] [id number] [place] [address]- 1236 Oct, [facility] [place] [facility] [address] [id number] [place] [address]- 6920 Oct, [facility] [place] [facility] [address] [id number] [place] [address]- 2785 Oct, [facility] [place] [facility] [address] [id number] [place] [address]- 7335 Oct, [facility] [place] [facility] [address] [id number] [place] [address]- 5502 Oct, [facility] [place] [facility] [address] [id number] [place] [address]- 4641 Oct, [facility] [place] [facility] [address] [id number] [place] [address]- 0538 Oct, [facility] [place] [facility] [address] [id number] [place] [address]- 3830 Oct, [facility] [place] [facility] [address] [id number] [place] [address]- 2355 Oct, [facility] [place] [facility] [address] [id number] [place] [address]- 2998 Oct, [facility] [place] [facility] [address] [id number] [place] [address]- 7684 Oct, [facility] [place] [facility] [address] [id number] [place] [address]- 9002 Oct, [facility] [place] [facility] [address] [id number] [place] [address]- 0373 Sep, [facility] [place] [facility] [address] [id number] [place] [address]- 3564 Sep, [facility] [place] [facility] [address] [id number] [place] [address]- 4902 Sep, [facility] [place] [facility] [address] [id number] [place] [address]- 4542 Sep, [facility] [place] [facility] [address] [id number] [place] [address]- 1082 18 Sep, 2013 [facility] [place] [facility] [address] [id number] [place] [address]- 1500 18 Sep, 2013 [facility] [place] [facility] [address] [id number] [place] [address]- 9865 17 Sep, 2013 [facility] [place] [facility] [address] [id number] [place] [address]- 5694 17 Sep, 2013 [facility] [place] [facility] [address] [id number] [place] [address]- 5695 11 Sep, 2013 [facility] [place] [facility] [address] [id number] [place] [address]- 8506 Sep, [facility] [place] [facility] [address] [id number] [place] [address]- 1040 Sep, [facility] [place] [facility] [address] [id number] [place] [address]- 8290 Sep, [facility] [place] [facility] [address] [id number] [place] [address]- 7134 Sep, [facility] [place] [facility] [address] [id number] [place] [address]- 2379 Sep, [facility] [place] [facility] [address] [id number] [place] [address]- 4373 Sep, [facility] [place] [facility] [address] [id number] [place] [address]- 0366 09 Sep, 2013 [facility] [place] [facility] [address] [id number] [place] [address]- 8358 07 Sep, 2013 [facility] [place] [facility] [address] [id number] [place] [address]- 1569 07 Sep, 2013 [facility] [place] [facility] [address] [id number] [place] [address]- 0436 05 Sep, 2013 [facility] [place] [facility] [address] [id number] [place] [address]- 5586 05 Sep, 2013 [facility] [place] [facility] [address] [id number] [place] [address]- 9711 Sep, [facility] [place] [facility] [address] [id number] [place] [address]- 0602 Sep, [facility] [place] [facility] [address] [id number] [place] [address]- 4805 August, [facility] [place] [facility] [address] [id number] [place] [address]- 8905 August, [facility] [place] [facility] [address] [id number] [place] [address]- 7950 August, [facility] [place] [facility] [address] [id number] [place] [address]- 5081 August, [facility] [place] [facility] [address] [id number] [place] [address]- 6286 August, [facility] [place] [facility] [address] [id number] [place] [address]- 6812 August, [facility] [place] [facility] [address] [id number] [place] [address]- 0796 August, [facility] [place] [facility] [address] [id number] [place] [address]- 7960 August, [facility] [place] [facility] [address] [id number] [place] [address]- 0153 August, [facility] [place] [facility] [address] [id number] [place] [address]- 9119 August, [facility] [place] [facility] [address] [id number] [place] [address]- 5318 August, [facility] [place] [facility] [address] [id number] [place] [address]- 4299 Jul, [facility] [place] [facility] [address] [id number] [place] [address]- 5009 Jul, [facility] [place] [facility] [address] [id number] [place] 7751 Jul, [facility] [place] [facility] [address] [id number] [place] [address]- 1462 Jul, [facility] [place] [facility] [address] [id number] [place] [address]- 8087 Jul, [facility] [place] [facility] [address] [id number] [place] [address]- 0448 Jul, [facility] [place] [facility] [address] [id number] [place] [address] Jul, [facility] [place] [facility] [address] [id number] [place] [address] Jul, [facility] [place] [facility] [address] [id number] [place] [address] Jul, [facility] [place] [facility] [address] [id number] [place] [address] 18 Jul, 2013 [facility] [place] [facility] [address] [id number] [place] [address]- [address] 16 Jul, 2013 [facility] [place] [facility] [address] [id number] [place] [address] 14 Jul, 2013 [facility] [place] [facility] [address] [id number] [place] [address] 14 Jul, 2013 [facility] [place] [facility] [address] [id number] [place] [address] Jul, [facility] [place] [facility] [address] [id number] [place] [address] Jul, [facility] [place] [facility] [address] [id number] [place] [address]448 10 Jul, 2013 [facility] [place] [facility] [address] [id number] [place] [address]- [address] 10 Jul, 2013 [facility] [place] [facility] [address] [id number] [place] [address]- [address]397 05 Jul, 2013 [facility] [place] [facility] [address] [id number] [place] [address]- [address] Jul, [facility] [place] [facility] [address] [id number] [place] [address] Jul, [facility] [place] [facility] [address] [id number] [place] [address] Jul, [facility] [place] [facility] [address] [id number] [place] [address] Jul, [facility] [place] [facility] [address] [id number] [place] [address] Jul, [facility] [place] [facility] [address] [id number] [place] [address] Jun, [facility] [place] [facility] [address] [id number] [place] [address] Jun, [facility] [place] [facility] [address] [id number] [place] [address] Jun, [facility] [place] [facility] [address] [id number] [place] [address]- [address] Jun, [facility] [place] [facility] [address] [id number] [place] [address] Jun, [facility] [place] [facility] [address] [id number] [place] [address] Jun, [facility] [place] [facility] [address] [id number] [place] [address] 9[address] Jun, [facility] [place] [facility] [address] [id number] [place] [address]- [address] Jun, [facility] [place] [facility] [address] [id number] [place] [address]- [address] Jun, [facility] [place] [facility] [address] [id number] [place] [address]- 79[address] Jun, [facility] [place] [facility] [address] [id number] [place] [address] Jun, [facility] [place] [facility] [address] [id number] [place] [address] Jun, [facility] [place] [facility] [address] [id number] [place] [address] May, [facility] [place] [facility] [address] [id number] [place] [address] May, [facility] [place] [facility] [address] [id number] [place] [address]- [address] Apr, [facility] [place] [facility] [address] [id number] [place] [address]- [address]687 Apr, [facility] [place] [facility] [address] [id number] [place] [address] 69[address] Apr, [facility] [place] [facility] [address] [id number] [place] [address] 90[address] Apr, [facility] [place] [facility] [address] [id number] [place] [address]- 1780 Apr, [facility] [place] [facility] [address] [id number] [place] [address]- [address]47 Apr, [facility] [place] [facility] [address] [id number] [place] [address]- [address]46 Apr, [facility] [place] [facility] [address] [id number] [place] [address]- [address] Apr, [facility] [place] [facility] [address] [id number] [place] [address]- [address]365 Apr, [facility] [place] [facility] [address] [id number] [place] [address] Apr, [facility] [place] [facility] [address] [id number] [place] [address]- 7212 Apr, [facility] [place] [facility] [address] [id number] [place] [address] Mar, [facility] [place] [facility] [address] [id number] [place] [address]- [address] Mar, [facility] [place] [facility] [address] [id number] [place] [address] Mar, [facility] [address] [id number] [place] [address]- [address] Mar, [facility] [place] [facility] [address] [id number] [place] [address]- [address] Feb, [facility] [address] [id number] [place] [address]- [address]10 Feb, [facility] [place] [facility] [address] [id number] [place] [address]- [address] Feb, [facility] [place] [facility] [address] [id number] [place] [address]- [address]344 Feb, [facility] [place] [facility] [address] [id number] [place] [address]- 8839 Feb, [facility] [address] [id number] [place] [address]- [address] Feb, [facility] [place] [facility] [address] [id number] [place] [address]- 8636 Feb, [facility] [place] [facility] [address] [id number] [place] [address]- [address]559 Feb, [facility] [place] [facility] [address] [facility] [id number] [place] [address]- 9921 Feb, [facility] [place] [facility] [address] [id number] [place] [address]- 1751 Feb, [facility] [place] [facility] [address] [id number] [place] [address] Feb, [facility] [place] [facility] [address] [id number] [id number] [address] Jan, [facility] [place] [facility] [address] [id number] [place] [address] Jan, [facility] [place] [facility] [address] [id number] [place] [address] Jan, [facility] [place] [facility] [address] [id number] [place] [address] 11 Jan, 2013 [facility] [place] [facility] [address] [id number] [place] [address] 10 Jan, 2013 [facility] [place] [facility] [address] [id number] [place] [address] 48[address] 10 Jan, 2013 [facility] [place] [facility] [address] [id number] [place] [address] 45[address] 03 Jan, 2013 [facility] [place] [facility] [address] [id number] [place] [address] 53[address] 02 Jan, 2013 [facility] [place] [facility] [address] [id number] [place] [address] 1387 30 Dec, 2012 [facility] [place] [facility] [address] [id number] [place] [address] 25 Sep, 2012 [facility] [place] [facility] [address] [id number] [place] [address]- 4488 18 Sep, 2012 [facility] [place] [facility] [address] [id number] [place] [address]- 7771 17 Sep, 2012 [facility] [place] [facility] [address] [id number] [place] [address]- 2559 17 Sep, 2012 [facility] [place] [facility] [address] [id number] [place] [address]- 7783 16 Sep, 2012 [facility] [place] [facility] [address] [id number] [place] [address]- 2548 13 Sep, 2012 [facility] [place] [facility] [address] [id number] [place] [address]- 4579 11 Sep, 2012 [facility] [place] [facility] [address] [id number] [place] [address]- 2549 05 Sep, 2012 [facility] [place] [facility] [address] [id number] [place] [address]- 1573 04 Sep, 2012 [facility] [place] [facility] [address] [id number] [place] [address]- 9[address] Nov, [facility] [place] [facility] [address] [id number] [place] [address]- 8349 Nov, [facility] [place] [facility] [address] [id number] [place] [address]- 0421 Nov, [facility] [place] [facility] [address] [id number] [place] [address]- 8073 Nov, [facility] [place] [facility] [address] [id number] [place] [address]- 5549 Nov, [facility] [place] [facility] [address] [id number] [place] [address]- 7082 Nov, [facility] [place] [facility] [address] [id number] [place] [address]- 9645 Nov, [facility] [place] [facility] [address] [id number] [place] [address]- 2066 Oct, [facility] [place] [facility] [address] [id number] [place] [address]- 2932 Oct, [facility] [place] [facility] [address] [id number] [place] [address]- 9016 Oct, [facility] [place] [facility] [address] [id number] [place] [address]- 8909 Oct, [facility] [place] [facility] [address] [id number] [place] [address]- 7727 Oct, [facility] [place] [facility] [address] [id number] [place] [address]- 7457 Oct, [facility] [place] [facility] [address] [id number] [place] [address]- 5871 Sep, [facility] [place] [facility] [address] [id number] [place] [address]- 0857 Sep, [facility] [place] [facility] [address] [id number] [place] [address]- 3105 Sep, [facility] [place] [facility] [address] [id number] [place] [address]- 8828 14 Sep, 2012 [facility] [address] [id number] [place] [address]- 3208 13 Sep, 2012 [facility] [address] [id number] [place] [address]- 4656 10 Sep, 2012 [facility] [address] [id number] [place] [address]- 6801 07 Sep, 2012 [facility] [address] [id number] [place] [address]- 9369 06 Sep, 2012 [facility] [address] [id number] [place] [address]- 0481 05 Sep, 2012 [facility] [address] [id number] [place] [address]- 7480 August, [facility] [address] [id number] [place] [address]- 8665 August, [facility] [address] [id number] [place] [address]- 9187 August, [facility] [address] [id number] [place] [address]- 2542 August, [facility] [place] [facility] [address] [id number] [place] [address]- 3459 August, [facility] [address] [id number] [place] [address]- 2846 August, [facility] [address] [id number] [place] [address]- 4886 August, [facility] [address] [id number] [place] [address]- 3246 August, [facility] [address] [id number] [place] [address]- 6786 Jul, [facility] [address] [id number] [place] [address]- 5367 Jul, [facility] [address] [facility] [place] [id number] Jul [facility] [place] [facility] [address] [id number] [place] [address] Jun, [facility] [address] [id number] [place] [address]- 6356 Jun, [facility] [address] [id number] [place] [address]- 2788 Jun, [facility] [address] [id number] [place] [address]- 2582 Jun, [facility] [address] [id number] [place] [address]- 1691 Jun, [facility] [place] [facility] [address] [id number] [place] [address]- 9866 Jun, [facility] [address] [id number] [place] [address]- 2171 May, [facility] [place] [facility] [address] [id number] [place] [address]- 3620 May, [facility] [place] [facility] [address] [id number] [place] [address]- 6062 May, [facility] [address] [id number] [place] [address]- 5337 May, [facility] [place] [facility] [address] [id number] [place] [address]- 8106 May, [facility] [address] [id number] [place] [address]- 4613 Apr, [facility] [address] [id number] [place] [address]- 5876 Apr, [facility] [address] [id number] [place] [address]- 0041 Apr, [facility] [address] [id number] [place] [address]- 1013 Apr, [facility] [address] [id number] [place] [address]- 9220 Apr, [facility] [place] [facility] [address] [id number] [place] [address]- 2756 Apr, [facility] [place] [facility] [address] [id number] [place] [address]- 9436 Mar, [facility] [place] [facility] [address] [id number] [place] [address]- 5430 Mar, [facility] [place] [facility] [address] [id number] [place] [address]- 1361 Mar, [facility] [place] [facility] [address] [id number] [place] [address]- 8514 Mar, [facility] [place] [facility] [address] [id number] [place] [address]- 1266 Mar, [facility] [place] [facility] [address] [id number] [place] [address]- 5410 Mar, [facility] [place] [facility] [address] [id number] [place] [address]- 4961 Mar, [facility] [place] [facility] [address] [id number] [place] [address]- 6230 Mar, [facility] [place] [facility] [address] [id number] [place] [address]- 7004 Mar, [facility] [place] [facility] [address] [id number] [place] [address]- 8768 Mar, [facility] [place] [facility] [address] [id number] [place] [address]- 9428 Mar, [facility] [place] [facility] [address] [id number] [place] [address]- 6333 Feb, [facility] [place] [facility] [address] [id number] [place] [address]- 4745 Feb, [facility] [place] [facility] [address] [id number] [place] [address]- 6428 Feb, [facility] [place] [facility] [address] [id number] [place] [address]- 5089 Feb, [facility] [place] [facility] [address] [id number] [place] [address]- 4078 Feb, [facility] [place] [facility] [address] [id number] [place] [address]- 0453 Feb, [facility] [place] [facility] [address] [id number] [place] [address]- 1756 Feb, [facility] [place] [facility] [address] [id number] [place] 1629 Feb, [facility] [place] [facility] [address] [id number] [place] [address]- 1747 Feb, [facility] [place] [facility] [address] [id number] [place] [address]- 8771 Feb, [facility] [place] [facility] [address] [id number] [place] [address]- 2996 Feb, [facility] [place] [facility] [address] [id number] [place] [address]- 1460 Jan, [facility] [place] [facility] [address] [id number] [place] [address]- 6348 Jan, [facility] [place] [facility] [address] [id number] [place] [address]- 5869 Jan, [facility] [place] [facility] [address] [id number] [place] [address]- 8443 Jan, [facility] [place] [facility] [address] [id number] [place] 5683 Jan, [facility] [place] [facility] [address] [id number] [place] [address]- 9939 Jan, [facility] [place] [facility] [address] [id number] [place] [address]- 7157 Jan, [facility] [place] [facility] [address] [id number] [place] [address]- 3502 24 Dec, 2011 [facility] [place] [facility] [address] [id number] [place] [address]- 3511 17 Dec, 2011 [facility] [place] [facility] [address] [id number] [place] [address]- 4928 13 Dec, 2011 [facility] [place] [facility] [address] [id number] [place] [address]- 1385 12 Dec, 2011 [facility] [place] [facility] [address] [id number] [place] [address]- 8971 23 Nov, 2011 [facility] [place] [facility] [address] [id number] [place] [address]- 0487 20 Nov, 2011 [facility] [place] [facility] [address] [id number] [place] [address]- 8345 17 Nov, 2011 [facility] [place] [facility] [address] [id number] [place] [address]- 2485 15 Nov, 2011 [facility] [place] [facility] [address] [id number] [place] [address]- 3077 14 Nov, 2011 [facility] [place] [facility] [address] [id number] [place] [address]- 9837 Nov, [facility] [place] [facility] [address] [id number] [place] [address]- 2293 Nov, [facility] [place] [facility] [address] [id number] [place] [address]- 6167 Nov, [facility] [place] [facility] [address] [id number] [place] [address]- 1774 Nov, [facility] [place] [facility] [address] [id number] [place] [address]- 6206 Nov, [facility] [place] [facility] [address] [id number] [place] [address]- 7536 Nov, [facility] [place] [facility] [address] [id number] [place] [address]- 2543 Nov, [facility] [place] [facility] [address] [id number] [place] [address]- 6819 Nov, [facility] [place] [facility] [address] [id number] [place] [address]- 1455 Oct, [facility] [place] [facility] [address] [id number] [place] [address]- 9666 Oct, [facility] [place] [facility] [address] [id number] [place] [address]- 0788 Oct, [facility] [place] [facility] [address] [id number] [place] [address]- 6690 Oct, [facility] [place] [facility] [address] [id number] [place] [address]- 2227 Oct, [facility] [place] [facility] [address] [id number] [place] [address]- 5971 Oct, [facility] [place] [facility] [address] [id number] [place] [address]- 5603 Oct, [facility] [place] [facility] [address] [id number] [place] [address]- 5300 Oct, [facility] [place] [facility] [address] [id number] [place] [address]- 9343 Oct, [facility] [place] [facility] [address] [id number] [place] [address]- 3229 Sep, [facility] [place] [facility] [address] [id number] [place] [address]- 1652 Sep, [facility] [place] [facility] [address] [id number] [place] [address]- 5314 Sep, [facility] [place] [facility] [address] [id number] [place] [address]- 1889 Sep, [facility] [place] [facility] [address] [id number] [place] [address]- 3580 Sep, [facility] [place] [facility] [address] [id number] [place] [address]- 6155 Sep, [facility] [place] [facility] [address] [id number] [place] [address]- 8214 Sep, [facility] [place] [facility] [address] [id number] [place] [address]- 0716 Sep, [facility] [place] [facility] [address] [id number] [place] [address]- 8459 August, [facility] [place] [facility] [address] [id number] [place] [address]- 8595 August, [facility] [place] [facility] [address] [id number] [place] [address]- 7747 August, [facility] [place] [facility] [address] [id number] [place] [address]- 1203 August, [facility] [place] [facility] [address] [id number] [place] [address]- 9637 August, [facility] [place] [facility] [address] [id number] [place] [address]- 8514 August, [facility] [place] [facility] [address] [id number] [place] [address]- 1615 August, [facility] [place] [facility] [address] [id number] [place] [address]- 4280 August, [facility] [place] [facility] [address] [id number] [place] [address]- 0106 August, [facility] [place] [facility] [address] [id number] [place] [address]- 3154 August, [facility] [place] [facility] [address] [id number] [place] 9348 August, [facility] [place] [facility] [address] [id number] [place] [address]- 0672 August, [facility] [place] [facility] [address] [id number] [place] [address]- 6062 Oct, 2010 IMMUNIZATIONS No Known Immunizations SOCIAL HISTORY Never Assessed REASON FOR VISIT Requests return call PLAN OF CARE VITAL SIGNS MEDICATIONS Medication Instructions Dosage Frequency Start Date End Date Duration Status Nystatin [id number] UNIT/GM Externally Twice a day 1 application to affected area 12h Apr, Active RESULTS No Results PROCEDURES No [...] Surgical History bladder surgery Hospitalization History [facility] for right groin pain 05/2011 Hospitalization History Via [facility] for wound on buttocks 08/2012 Hospitalization History Via [facility], hypoxia secondary to pneumonia 12/02-12/09 Hospitalization History Pneumonia, elevated CO2 on Bipap was in ICU 08/2013 Hospitalization History Hypoxia, Exacerbation COPD, Chest pain 09/05/15 Hospitalization History suicidal ideations-[place] 12/28 Hospitalization History hypoxia--[facility] 02/13/2016 Hospitalization History shortness of breath at june 2016 Hospitalization History Shortness of breath at august 2016 Hospitalization History SOB, chest pain at 12/2016
--- OUTSIDE RECORDS SUMMARY | 2017-11-24 18:09 | XMS REPORT ---
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 [place] [address] 16348 2546 Nov, [facility] [id number] [place] [address] 49212 2546 Nov, Diarrhea 787.91 [facility] [address], [place] [address] 2546 Nov, Diarrhea 787.91 and Hyperlipidemia 272.4 [facility] [address], [place] [address]- 3774 Nov, Diarrhea 787.91 [facility] [id number] [place] [address] 79291 2545 Nov, Affective disorder 296.90 [facility] [id number] [place] [address] 99765- 5739 Nov, Affective disorder 296.90 [facility] [id number] [place] [address] 63762- 3150 Nov, Affective disorder 296.90 [facility] [id number] [place] [address] 13632- 2188 Nov, [facility] [id number] [place] [address] 70558- 0235 Nov, [facility] [id number] [place] [address] 13811- 7684 Nov, [facility] [id number] [place] [address] 63687- 0091 Nov, Episodic mood disorder 296.90 [facility] [id number] [place] [address] 76255- 7250 Nov, [facility] [id number] [place] [address] 87480- 9481 Nov, [facility] [id number] [place] [address] 83815- 8005 Nov, [facility] [id number] [place] [address] 50512- 9109 Nov, [facility] [id number] [place] [address] 88557- 4744 Nov, [facility] [address], [place] [address]- 2330 Nov, Lymphedema 457.1 ; Hyperlipidemia 272.4 ; Essential hypertension, benign 401.1 and Numbness of toes 782.0 [facility] [address] [place] [address]- 7594 Nov, Episodic mood disorder 296.90 [facility] [id number] [place] [address]- 4457 Oct, [facility] [id number] [place] [address]- 6221 Oct, 2014 [facility] [address], [place] [address]- 6147 Oct, 2014 [facility] [id number] [place] [address]- 4605 Oct, [facility] [id number] [place] [address]- 6930 Oct, [facility] [address], [place] [address]- 2255 Oct, [facility] [address], [place] [address]- 6664 Oct, [facility] [address], [place] [address]- 6154 Oct, [facility] [address], [place] [address]- 7609 Oct, Episodic mood disorder 296.90 [facility] [address], [place] [address]- 0288 Sep, [facility] [address], [place] [address]- 7929 Sep, [facility] [address], [place] [address]- 1656 Sep, [facility] [address], [place] [address]- 8471 Sep, [facility] [address], [place] [address]- 1885 Sep, [facility] [address], [place] [address]- 1503 Sep, Episodic mood disorder 296.90 [facility] [id number] [place] [address] 31016- 6947 Sep, Unspecified episodic mood disorder 296.90 [facility] [id number] [place] [address] 22422- 2076 Sep, [facility] [id number] [place] [address] 02638- 4383 Sep, [facility] [id number] [place] [address] 98697- 1164 Sep, Episodic mood disorder 296.90 [facility] [id number] [place] [address] 21365- 5788 Sep, [facility] [id number] [place] [address] 64655- 6870 Sep, [facility] [id number] [place] [address] 22159- 6127 Sep, [facility] [id number] [place] [address] 09217- 5202 Sep, Hematemesis 578.0 and Vomiting 787.03 [facility] [id number] [place] [address] 24175- 5267 Sep, Episodic mood disorder 296.90 [facility] [id number] [place] [address] 17031- 4662 Sep, [facility] [id number] [place] [address] 28165- 1896 Sep, [facility] [id number] [place] [address] 98970- 9270 05 Sep, 2014 Diabetes mellitus without mention of complication, type II or unspecified type, not stated as uncontrolled 250.00 and Other chronic pain 338.29 [facility] [id number] [place] [address] 31864- 0236 Sep, Episodic mood disorder 296.90 [facility] [address], [place] [address]- 8712 Sep, [facility] [address] 4552 Sep, Episodic mood disorder 296.90 [facility] [address] 1584 Sep, [facility] [address], [place] [address]- 3289 August, [facility] [address], [place] [address]- 7589 August, [facility] [address], [place] [address]- 7348 August, Episodic mood disorder 296.90 [facility] [address], [place] [address]- 5829 August, [facility] [address], [place] [address]- 6290 August, Unspecified episodic mood disorder 296.90 [facility] [address], [place] [address]- 6688 August, Vomiting 787.03 [facility] [address], [place] [address]- 3475 August, [facility] [id number], [place] [address]- 0750 August, [facility] [id number] 0684 August, [facility] [address]- 3387 August, [facility] [id number] 4992 August, [facility] [place] [facility] [address] [id number] [place] [address]- 7793 28 Jul, 2014 [facility] [place] [facility] [address] [id number] [place] [address]- 1046 14 Jul, 2014 [facility] [place] [facility] [address] [id number] [place] [address]- 5006 13 Jul, 2014 [facility] [place] [facility] [address] [id number] [place] [address]- 8226 30 Jun, 2014 [facility] [place] [facility] [address] [id number] [place] [address]- 4455 30 Jun, 2014 [facility] [place] [facility] [address] [id number] [place] [address]- 4822 30 Jun, 2014 [facility] [place] [facility] [address] [id number] [place] [address]- 2981 30 Jun, 2014 [facility] [place] [facility] [address] [id number] [place] [address]- 7101 30 Jun, 2014 [facility] [place] [facility] [address] [id number] [place] [address]- 0149 30 Jun, 2014 [facility] [place] [facility] [address] [id number] [place] [address]- 3401 30 Jun, 2014 [facility] [place] [facility] [address] [id number] [place] [address]- 2909 30 Jun, 2014 [facility] [place] [facility] [address] [id number] [place] [address]- 2117 27 Jun, 2014 [facility] [place] [facility] [address] [id number] [place] [address]- 5502 Jun, [facility] [place] [facility] [address] [id number] [place] [address]- 0006 Jun, [facility] [place] [facility] [address] [id number] [place] [address]- 5156 Jun, [facility] [place] [facility] [address] [id number] [place] [address]- 4381 Jun, [facility] [place] [facility] [address] [id number] [place] [address] Jun, [facility] [place] [facility] [address] [id number] [place] [address] 24 Jun, 2014 [facility] [place] [facility] [address] [id number] [place] [address] Jun, [facility] [place] [facility] [address] [id number] [place] [address] Jun, [facility] [place] [facility] [address] [id number] [place] [address] Jun, [facility] [place] [facility] [address] [id number] [place] [address] Jun, [facility] [place] [facility] [address] [id number] [place] [address] Jun, [facility] [place] [facility] [address] [id number] [place] [address] Jun, [facility] [place] [facility] [address] [id number] [place] [address] Jun, [facility] [place] [facility] [address] [id number] [place] [address] 20 Jun, 2014 [facility] [place] [facility] [address] [id number] [place] [address] 20 Jun, 2014 [facility] [place] [facility] [address] [id number] [place] [address] 20 Jun, 2014 [facility] [place] [facility] [address] [id number] [place] [address]- [address]659 19 Jun, 2014 [facility] [place] [facility] [address] [id number] [place] [address]- [address] 19 Jun, 2014 [facility] [place] [facility] [address] [id number] [place] [address]- [address]180 18 Jun, 2014 [facility] [place] [facility] [address] [id number] [place] [address]- [address] 18 Jun, 2014 [facility] [place] [facility] [address] [id number] [place] [address]- [address] 17 Jun, 2014 [facility] [place] [facility] [address] [id number] [place] [address]- 1574 17 Jun, 2014 [facility] [place] [facility] [address] [id number] [place] [address]- [address]65 16 Jun, 2014 [facility] [place] [facility] [address] [id number] [place] [address]- 9669 16 Jun, 2014 [facility] [place] [facility] [address] [id number] [place] [address]- 6942 16 Jun, 2014 [facility] [place] [facility] [address] [id number] [place] [address]- 3924 16 Jun, 2014 [facility] [place] [facility] [address] [id number] [place] [address]- 4[address] 16 Jun, 2014 [facility] [place] [facility] [address] [id number] [place] [address]- [address]304 16 Jun, 2014 [facility] [place] [facility] [address] [id number] [place] [address]- [address]694 13 Jun, 2014 [facility] [place] [facility] [address] [id number] [place] [address]- [address] 13 Jun, 2014 [facility] [place] [facility] [address] [id number] [place] [address]- [address]88 12 Jun, 2014 [facility] [place] [facility] [address] [id number] [place] [address]- 1467 12 Jun, 2014 [facility] [place] [facility] [address] [id number] [place] [address]- [address] 09 Jun, 2014 [facility] [place] [facility] [address] [id number] [place] [address]- [address] 09 Jun, 2014 [facility] [place] [facility] [address] [id number] [place] [address]- 3552 09 Jun, 2014 [facility] [place] [facility] [address] [id number] [place] [address]- [address]28 Jun, [facility] [place] [facility] [address] [id number] [place] [address]- [address] Jun, 2014 [facility] [place] [facility] [address] [id number] [place] [address] Jun, [facility] [place] [facility] [address] [id number] [place] [address]- [address] Jun, 2014 [facility] [place] [facility] [address] [id number] [place] [address]- [address] Jun, [facility] [place] [facility] [address] [id number] [place] [address] Jun, [facility] [place] [facility] [address] [id number] [place] [address] Jun, [facility] [place] [facility] [address] [id number] [place] [address]7 Jun, [facility] [place] [facility] [address] [id number] [place] [address] Jun, [facility] [place] [facility] [address] [id number] [place] [address]- 4770 Jun, [facility] [place] [facility] [address] [id number] [place] [address]- [address] Jun, [facility] [place] [facility] [address] [id number] [place] [address]- [address] Jun, [facility] [place] [facility] [address] [id number] [place] [address] Jun, [facility] [place] [facility] [address] [id number] [place] [address] May, [facility] [place] [facility] [address] [id number] [place] [address] 0[address] May, [facility] [place] [facility] [address] [id number] [place] [address] 3169 May, 2014 [facility] [place] [facility] [address] [id number] [place] [address] 9116 May, 2014 [facility] [place] [facility] [address] [id number] [place] [address] 4216 24 May, 2014 [facility] [place] [facility] [address] [facility] [id number] [place] [address]- 7576 24 May, 2014 [facility] [place] [facility] [address] [facility] [id number] [place] [address]- 8092 20 May, 2014 [facility] [place] [facility] [address] [id number] [place] [address]- 3159 20 May, 2014 [facility] [place] [facility] [address] [facility] [id number] [place] [address]- 5291 20 May, 2014 [facility] [place] [facility] [address] [id number] [place] [address] 4[address] 20 May, 2014 [facility] [place] [facility] [address] [facility] [id number] [place] [address]- 0937 18 May, 2014 [facility] [place] [facility] [address] [facility] [id number] [place] [address] 3403 18 May, 2014 [facility] [place] [facility] [address] [facility] [id number] [place] [address]- 1185 13 May, 2014 [facility] [place] [facility] [address] [facility] [id number] [place] [address]- 2546 13 May, 2014 [facility] [place] [facility] [address] [facility] [id number] [place] [address]- 2547 11 May, 2014 [facility] [place] [facility] [address] [facility] [id number] [place] [address]- 6426 11 May, 2014 [facility] [place] [facility] [address] [facility] [id number], [place] [address]46 11 May, 2014 [facility] [place] [facility] [address] [facility] [id number] [place] [address] 8587 May, 2014 [facility] [place] [facility] [address] [facility] [id number] [place] [address]- 0213 May, 2014 [facility] [place] [facility] [address] [facility] [id number] [place] [address]- 2078 May, 2014 [facility] [place] [facility] [address] [facility] [id number] [place] [address]- 3122 May, 2014 [facility] [place] [facility] [address] [facility] [id number] [place] [address]- 7397 May, 2014 [facility] [place] [facility] [address] [facility] [id number] [place] [address]- 9438 May, 2014 [facility] [place] [facility] [address] [facility] [id number] [place] [address]- 0017 May, 2014 [facility] [place] [facility] [address] [id number] [place] [address]- 0253 May, 2014 [facility] [place] [facility] [address] [facility] [id number] [place] [address]- 2503 May, [facility] [place] [facility] [address] [facility] [id number] [place] [address]- 1018 May, 2014 [facility] [place] [facility] [address] [facility] [id number] [place] [address]- 9598 Apr, [facility] [place] [facility] [address] [facility] [id number] [place] [address]- 6410 Apr, [facility] [place] [facility] [address] [facility] [id number], [place] [address]- [address] Apr, [facility] [place] [facility] [address] [facility] [id number], [place] [address]- 1731 Apr, [facility] [place] [facility] [address] [facility] [id number] [place] [address]- 3019 Apr, [facility] [place] [facility] [address] [facility] [id number], [place] [address]- 3[address] Apr, [facility] [place] [facility] [address] [id number] [place] [address]- 3914 Apr, [facility] [place] [facility] [address] [id number] [place] [address]- 0073 Apr, [facility] [place] [facility] [address] [id number] [place] [address]- 2094 Apr, [facility] [place] [facility] [address] [id number] [place] [address]- 7105 Apr, [facility] [place] [facility] [address] [id number] [place] [address]- 0990 Apr, [facility] [place] [facility] [address] [id number] [place] [address]- 7277 Apr, [facility] [place] [facility] [address] [id number] [place] [address]- 9255 Apr, [facility] [place] [facility] [address] [id number] [place] [address]- 8463 Apr, [facility] [place] [facility] [address] [id number] [place] [address]- 4358 Apr, [facility] [place] [facility] [address] [id number] [place] [address]- 7582 Apr, [facility] [place] [facility] [address] [id number] [place] [address]- 5859 Apr, [facility] [place] [facility] [address] [id number] [place] [address]- 0866 Apr, [facility] [place] [facility] [address] [id number] [place] [address]- 5376 Apr, [facility] [place] [facility] [address] [id number] [place] [address]- 0953 Apr, [facility] [place] [facility] [address] [id number] [place] [address]- 4451 Mar, [facility] [place] [facility] [address] [id number] [place] [address]- 5359 Mar, [facility] [place] [facility] [address] [id number] [place] [address]- 6834 Mar, [facility] [place] [facility] [address] [id number] [place] [address]- 8176 Mar, [facility] [place] [facility] [address] [id number] [place] [address]- 3113 Mar, [facility] [place] [facility] [address] [id number] [place] [address]- 2945 Mar, [facility] [place] [facility] [address] [id number] [place] [address]- 9352 Mar, [facility] [place] [facility] [address] [id number] [place] [address]- 5259 Mar, [facility] [place] [facility] [address] [id number] [place] [address]- 3078 15 Mar, 2014 [facility] [place] [facility] [address] [id number] [place] [address]- 9670 15 Mar, 2014 [facility] [place] [facility] [address] [id number] [place] [address]- 3268 15 Mar, 2014 [facility] [place] [facility] [address] [id number] [place] [address]- 1295 15 Mar, 2014 [facility] [place] [facility] [address] [id number] [place] [address]- 8547 Mar, [facility] [place] [facility] [address] [id number] [place] [address]- 6541 Mar, [facility] [place] [facility] [address] [id number] [place] [address]- 6934 Mar, [facility] [place] [facility] [address] [id number] [place] [address] Mar, [facility] [place] [facility] [address] [id number] [place] [address]- 2763 Feb, [facility] [place] [facility] [address] [id number] [place] [address]- 2566 28 Feb, 2014 [facility] [place] [facility] [address] [id number] [place] [address]- 2978 Feb, [facility] [place] [facility] [address] [id number] [place] [address]- 2613 Feb, [facility] [place] [facility] [address] [id number] [place] [address]- 0855 Feb, [facility] [place] [facility] [address] [id number] [place] [address]- 6962 Feb, [facility] [place] [facility] [address] [id number] [place] [address]- 2164 19 Feb, 2014 [facility] [place] [facility] [address] [id number] [place] [address]- 4740 18 Feb, 2014 [facility] [place] [facility] [address] [id number] [place] [address]- 9029 18 Feb, 2014 [facility] [place] [facility] [address] [id number] [place] [address]- 8548 17 Feb, 2014 [facility] [place] [facility] [address] [id number] [place] [address]- 4073 17 Feb, 2014 [facility] [place] [facility] [address] [id number] [place] [address]- 0365 17 Feb, 2014 [facility] [place] [facility] [address] [id number] [place] [address]- 3606 17 Feb, 2014 [facility] [place] [facility] [address] [id number] [place] [address]- 1212 14 Feb, 2014 [facility] [place] [facility] [address] [id number] [place] [address]- 9899 14 Feb, 2014 [facility] [place] [facility] [address] [id number] [place] [address]- 5230 14 Feb, 2014 [facility] [place] [facility] [address] [id number] [place] [address]- 2046 14 Feb, 2014 [facility] [place] [facility] [address] [id number] [place] [address]- 3695 Feb, [facility] [place] [facility] [address] [id number] [place] [address]- 3628 Feb, [facility] [place] [facility] [address] [id number] [place] [address]- 1561 Feb, [facility] [place] [facility] [address] [id number] [place] [address]- 9138 Feb, [facility] [place] [facility] [address] [id number] [place] [address]- 6582 Jan, [facility] [place] [facility] [address] [id number] [place] [address]- 6758 Jan, [facility] [place] [facility] [address] [id number] [place] [address]- 8735 Jan, [facility] [place] [facility] [address] [id number] [place] [address]- 3335 Jan, [facility] [place] [facility] [address] [id number] [place] [address]- 7228 Jan, [facility] [place] [facility] [address] [id number] [place] [address]- 1249 Jan, [facility] [place] [facility] [address] [id number] [place] [address]- 4061 Jan, [facility] [place] [facility] [address] [id number], [place] [address]- 4412 Jan, [facility] [place] [facility] [address] [id number] [place] [address]- 5035 Jan, [facility] [place] [facility] [address] [id number] [place] [address]- 9127 Jan, [facility] [place] [facility] [address] [id number], [place] [address]- 9255 Jan, [facility] [place] [facility] [address] [id number], [place] [address]- 7689 17 Jan, 2013 [facility] [place] [facility] [address] [id number] [place] [address]- 2634 17 Jan, 2013 [facility] [place] [facility] [address] [id number] [place] [address]- 6274 17 Jan, 2013 [facility] [place] [facility] [address] [id number] [place] [address]- 7144 15 Jan, 2014 [facility] [place] [facility] [address] [id number] [place] [address]- 1353 15 Jan, 2013 [facility] [place] [facility] [address] [id number] [place] [address]- 5963 14 Jan, 2014 [facility] [place] [facility] [address] [id number] [place] [address]- 9941 14 Jan, 2014 [facility] [place] [facility] [address] [id number] [place] [address]- 1676 13 Jan, 2014 [facility] [place] [facility] [address] [id number] [place] [address]- 7564 13 Jan, 2014 [facility] [place] [facility] [address] [id number] [place] [address]- 2034 13 Jan, 2014 [facility] [place] [facility] [address] [id number] [place] [address]- 8748 13 Jan, 2014 [facility] [place] [facility] [address] [id number], [place] [address]- 4091 10 Jan, 2014 [facility] [place] [facility] [address] [id number], [place] [address]- 3738 Jan, [facility] [place] [facility] [address] [id number] [place] [address]- 2674 Jan, [facility] [place] [facility] [address] [id number], [place] [address]- 1334 Dec, [facility] [place] [facility] [address] [id number] [place] [address]- 2456 25 Dec, 2013 [facility] [place] [facility] [address] [id number] [place] [address]- 6518 23 Sep, 2013 [facility] [place] [facility] [address] [id number] [place] [address]- 1646 23 Sep, 2013 [facility] [place] [facility] [address] [id number] [place] [address]- 2546 19 Sep, 2013 [facility] [place] [facility] [address] [id number] [place] [address] 2546 19 Sep, 2013 [facility] [place] [facility] [address] [id number] [place] [address]- 2542 17 Sep, 2013 [facility] [place] [facility] [address] [id number] [place] [address]- 1152 17 Sep, 2013 [facility] [place] [facility] [address] [id number] [place] [address]- 8782 09 Sep, 2013 [facility] [place] [facility] [address] [id number] [place] [address]- 4501 09 Sep, 2013 [facility] [place] [facility] [address] [id number] [place] [address]- 2581 08 Sep, 2013 [facility] [place] [facility] [address] [id number] [place] [address]- 2547 08 Sep, 2013 [facility] [place] [facility] [address] [id number] [place] [address]- 3546 04 Sep, 2013 [facility] [place] [facility] [address] [id number] [place] [address]- 2543 04 Sep, 2013 [facility] [place] [facility] [address] [id number] [place] [address] 2544 02 Sep, 2013 [facility] [place] [facility] [address] [id number] [place] [address] 2546 02 Sep, 2013 [facility] [place] [facility] [address] [id number] [place] [address]- 2540 02 Sep, 2013 [facility] [place] [facility] [address] [id number] [place] [address]- 3703 Dec, [facility] [place] [facility] [address] [id number] [place] [address]- 8473 Nov, [facility] [place] [facility] [address] [id number] [place] [address]- 2992 Nov, [facility] [place] [facility] [address] [id number] [place] [address]- 1704 Nov, [facility] [place] [facility] [address] [id number] [place] [address]- 6791 Nov, [facility] [place] [facility] [address] [id number] [place] [address]- 4937 Nov, [facility] [place] [facility] [address] [id number] [place] [address]- 5450 Nov, [facility] [place] [facility] [address] [id number] [place] [address]- 7836 Nov, [facility] [place] [facility] [address] [id number] [place] [address]- 1342 Nov, [facility] [place] [facility] [address] [id number] [place] [address]- 1275 Nov, [facility] [place] [facility] [address] [id number] [place] [address]- 1999 Nov, [facility] [place] [facility] [address] [id number] [place] [address]- 6275 Nov, [facility] [place] [facility] [address] [id number] [place] [address]- 6764 Nov, [facility] [place] [facility] [address] [id number] [place] [address]- 9648 Oct, [facility] [place] [facility] [address] [id number] [place] [address]- 6780 Oct, [facility] [place] [facility] [address] [id number] [place] [address]- 4998 Oct, [facility] [place] [facility] [address] [id number] [place] [address]- 3065 Oct, [facility] [place] [facility] [address] [id number] [place] [address]- 0180 Oct, [facility] [place] [facility] [address] [id number] [place] [address]- 4370 Oct, [facility] [place] [facility] [address] [id number] [place] [address]- 2134 Oct, [facility] [place] [facility] [address] [id number] [place] [address]- 6773 Oct, [facility] [place] [facility] [address] [id number] [place] [address]- 0820 Oct, [facility] [place] [facility] [address] [id number] [place] [address]- 2015 Oct, [facility] [place] [facility] [address] [id number] [place] [address]- 8860 Oct, [facility] [place] [facility] [address] [id number] [place] [address]- 6923 Oct, [facility] [place] [facility] [address] [id number] [place] [address]- 6669 Oct, [facility] [place] [facility] [address] [id number] [place] [address]- 9934 Oct, [facility] [place] [facility] [address] [id number] [place] [address]- 5044 Oct, [facility] [place] [facility] [address] [id number] [place] [address]- 5016 Oct, [facility] [place] [facility] [address] [id number] [place] [address]- 9540 Oct, [facility] [place] [facility] [address] [id number] [place] [address]- 9718 Sep, [facility] [place] [facility] [address] [id number] [place] [address]- 2850 Sep, [facility] [place] [facility] [address] [id number] [place] [address]- 0232 Sep, [facility] [place] [facility] [address] [id number] [place] [address]- 5944 Sep, [facility] [place] [facility] [address] [id number] [place] [address]- 3428 18 Sep, 2013 [facility] [place] [facility] [address] [id number] [place] [address]- 6732 Sep, [facility] [place] [facility] [address] [id number] [place] [address]- 7639 Sep, [facility] [place] [facility] [address] [id number] [place] [address]- 1367 Sep, [facility] [place] [facility] [address] [id number] [place] [address]- 6020 Sep, [facility] [place] [facility] [address] [id number] [place] [address]- 3440 Sep, [facility] [place] [facility] [address] [id number] [place] [address]- 3991 Sep, [facility] [place] [facility] [address] [id number] [place] [address]- 6078 Sep, [facility] [place] [facility] [address] [id number] [place] [address]- 7895 Sep, [facility] [place] [facility] [address] [id number] [place] [address]- 1726 Sep, [facility] [place] [facility] [address] [id number] [place] [address]- 7450 Sep, [facility] [place] [facility] [address] [id number] [place] [address]- 2640 Sep, [facility] [place] [facility] [address] [id number] [place] [address]- 0626 07 Sep, 2013 [facility] [place] [facility] [address] [id number] [place] [address]- 8792 Sep, [facility] [place] [facility] [address] [id number] [place] [address]- 3796 Sep, [facility] [place] [facility] [address] [id number] [place] [address]- 6186 Sep, [facility] [place] [facility] [address] [id number] [place] [address]- 7525 Sep, [facility] [place] [facility] [address] [id number] [place] [address]- 0045 Sep, [facility] [place] [facility] [address] [id number] [place] [address]- 4473 August, [facility] [place] [facility] [address] [id number] [place] [address]- 6478 August, [facility] [place] [facility] [address] [id number] [place] [address]- 3799 August, [facility] [place] [facility] [address] [id number] [place] [address]- 2832 August, [facility] [place] [facility] [address] [id number] [place] [address]- 2401 August, [facility] [place] [facility] [address] [id number] [place] [address]- 9619 August, [facility] [place] [facility] [address] [id number] [place] [address]- 6429 August, [facility] [place] [facility] [address] [id number] [place] [address]- 2445 August, [facility] [place] [facility] [address] [id number] [place] [address]- 4996 August, [facility] [place] [facility] [address] [id number] [place] [address]- 9061 August, [facility] [place] [facility] [address] [id number] [place] [address]- 9436 August, [facility] [place] [facility] [address] [id number] [place] [address]- 2922 28 Jul, 2013 [facility] [address] [id number] [place] [address]- 0084 Jul, [facility] [address] [id number] [place] [address]- 7343 Jul, [facility] [address] [id number] [place] [address]- 4420 Jul, [facility] [address] [id number] [place] [address] Jul, [facility] [address] [id number] [place] [address] Jul, [facility] [address] [id number] [place] [address] Jul, [facility] [address] [id number] [place] [address] Jul, [facility] [address] [id number] [place] [address] 18 Jul, 2013 [facility] [address] [id number] [place] [address] 18 Jul, 2013 [facility] [address] [id number] [place] [address] 16 Jul, 2013 [facility] [place] [facility] [address] [id number] [place] [address] 14 Jul, 2013 [facility] [address] [id number] [place] [address] 1369 14 Jul, 2013 [facility] [place] [facility] [address] [id number] [place] [address] 9[address] 11 Jul, 2013 [facility] [place] [facility] [address] [id number] [place] [address] 1046 11 Jul, 2013 [facility] [place] [facility] [address] [id number] [place] [address] Jul, [facility] [place] [facility] [address] [id number] [place] [address]42 Jul, [facility] [place] [facility] [address] [id number] [place] [address] Jul, [facility] [place] [facility] [address] [id number] [place] [address] 4569 Jul, [facility] [place] [facility] [address] [id number] [place] [address]70 Jul, [facility] [place] [facility] [address] [id number] [place] [address] Jul, [facility] [place] [facility] [address] [id number] [place] [address] 4947 Jul, [facility] [place] [facility] [address] [id number] [place] [address]609 Jul, [facility] [place] [facility] [address] [id number] [place] [address] 8534 Jun, [facility] [place] [facility] [address] [id number] [place] [address]32 Jun, [facility] [place] [facility] [address] [id number] [place] [address]- [address]99 Jun, [facility] [place] [facility] [address] [id number] [place] [address] 7732 Jun, [facility] [place] [facility] [address] [id number] [place] [address] 8065 Jun, [facility] [place] [facility] [address] [id number] [place] [address] 6481 Jun, [facility] [place] [facility] [address] [id number] [place] [address] Jun, [facility] [place] [facility] [address] [id number] [place] [address]18 Jun, [facility] [place] [facility] [address] [id number] [place] [address]- 5984 Jun, [facility] [place] [facility] [address] [id number] [place] [address] 3098 Jun, [facility] [place] [facility] [address] [id number] [place] [address] 4450 Jun, [facility] [place] [facility] [address] [id number] [place] [address] Jun, [facility] [place] [facility] [address] [id number] [place] [address] 0810 May, [facility] [place] [facility] [address] [id number] [place] [address] May, [facility] [place] [facility] [address] [id number] [place] [address] 0416 Apr, [facility] [place] [facility] [address] [id number] [place] [address] 1989 Apr, [facility] [place] [facility] [address] [id number] [place] [address] Apr, [facility] [place] [facility] [address] [id number] [place] [address] 27[address] Apr, [facility] [place] [facility] [address] [id number] [place] [address]- 2538 Apr, [facility] [place] [facility] [address] [id number] [place] [address] 7980 Apr, [facility] [place] [facility] [address] [id number] [place] [address] 7061 Apr, [facility] [place] [facility] [address] [id number] [place] [address]- [address]88 Apr, [facility] [place] [facility] [address] [id number] [place] [address]- 2914 Apr, [facility] [place] [facility] [address] [id number] [place] [address]- [address]115 Apr, [facility] [place] [facility] [address] [id number] [place] [address]- 4444 Apr, [facility] [place] [facility] [address] [id number] [place] [address] Mar, [facility] [place] [facility] [address] [id number] [place] [address]- 8817 Mar, [facility] [place] [facility] [address] [id number] [place] [address]- 4558 Mar, [facility] [place] [facility] [address] [id number] [place] [address] Mar, [facility] [place] [facility] [address] [id number] [place] [address]- 0449 Feb, [facility] [place] [facility] [address] [id number] [place] [address]- [address]706 Feb, [facility] [place] [facility] [address] [id number] [place] [address]- 6278 Feb, [facility] [place] [facility] [address] [id number] [place] [address]- 7435 Feb, [facility] [place] [facility] [address] [id number] [place] [address]- 4603 Feb, [facility] [place] [facility] [address] [id number] [place] [address]- 2348 Feb, [facility] [place] [facility] [address] [id number] [place] [address]- 4649 Feb, [facility] [place] [facility] [address] [id number] [place] [address]- 3262 Feb, [facility] [place] [facility] [address] [id number] [place] [address] Feb, [facility] [place] [facility] [address] [id number] [place] [address]- 0937 Feb, [facility] [place] [facility] [address] [id number] [place] [address] Feb, [facility] [place] [facility] [address] [id number] [place] [address]- 8483 Jan, [facility] [place] [facility] [address] [id number] [place] [address]- 06[address] Jan, [facility] [place] [facility] [address] [id number] [place] [address]- 0068 Jan, [facility] [place] [facility] [address] [id number] [place] [address]- [address] Jan, [facility] [place] [facility] [address] [id number] [place] [address]- 4119 Jan, [facility] [place] [facility] [address] [id number] [place] [address]- 5844 Jan, [facility] [place] [facility] [address] [id number] [place] [address]- 7700 Jan, [facility] [place] [facility] [address] [id number], [place] [address]- [address] 02 Jan, 2013 [facility] [place] [facility] [address] [id number], [place] [address] 30 Sep2012 [facility] [place] [facility] [address] [id number], [place] [address]- [address] 25 Sep2012 [facility] [place] [facility] [address] [id number], [place] [address]- 8[address] 18 Sep, 2012 [facility] [place] [facility] [address] [id number], [place] [address]- 9220 17 Sep, 2012 [facility] [place] [facility] [address] [id number], [place] [address]- 9768 17 Sep, 2012 [facility] [place] [facility] [address] [id number], [place] [address]- 5[address] 16 Sep, 2012 [facility] [place] [facility] [address] [id number], [place] [address]- 8917 13 Sep, 2012 [facility] [place] [facility] [address] [id number] [place] [address]- 1634 11 Dec, 2012 [facility] [place] [facility] [address] [id number] [place] [address]- 1240 05 Dec, 2012 [facility] [place] [facility] [address] [address] [id number] [place] [address] 04 Dec, 2012 [facility] [place] [facility] [address] [id number] [place] [address] 30 Nov, 2012 [facility] [place] [facility] [address] [id number] [place] [address] Nov, [facility] [place] [facility] [address] [id number] [place] [address] Nov, [facility] [place] [facility] [address] [id number] [place] [address] 14[address] Nov, [facility] [place] [facility] [address] [id number] [place] [address] 8436 Nov, [facility] [place] [facility] [address] [id number] [place] [address] 4107 Nov, [facility] [place] [facility] [address] [id number] [place] [address] 8863 Nov, [facility] [place] [facility] [address] [id number] [place] [address] 2454 Oct, [facility] [place] [facility] [address] [id number] [place] [address] 9187 Oct, [facility] [place] [facility] [address] [id number] [place] [address] 50[address] Oct, [facility] [place] [facility] [address] [id number] [place] [address] 7289 Oct, [facility] [place] [facility] [address] [id number] [place] [address] 15 Oct, 2012 [facility] [place] [facility] [address] [id number] [place] [address]- 8851 Oct, [facility] [place] [facility] [address] [id number] [place] [address] 3447 Sep, [facility] [address] [id number] [place] [address] 6438 Sep, [facility] [address] [id number] [place] [address] 9706 Sep, [facility] [address] [id number] [place] [address]- 0590 14 Sep, 2012 [facility] [address] [id number] [place] [address] 13 Sep, 2012 [facility] [address] [id number] [place] [address] 1274 Sep, [facility] [address] [id number] [place] [address] 1543 Sep, [facility] [address] [id number] [place] [address] 7116 Sep, [facility] [address] [id number] [place] [address]- 1117 Sep, [facility] [address] [id number] [place] [address] 4037 August, [facility] [address] [id number] [place] [address] 6678 August, [facility] [address] [id number] [place] [address]- 4643 August, [facility] [place] [facility] [address] [id number] [place] [address]- 8840 August, [facility] [place] [facility] [address] [id number] [place] [address] 1936 August, [facility] [place] [facility] [address] [id number] [place] [address] 7361 August, [facility] [place] [facility] [address] [id number], [place] [address] August, [facility] [address] [id number] [place] [address]- 2525 August, [facility] [address] [id number] [place] [address] 5196 Jul, [facility] [address] [id number] [place] [address]- 5242 Jul, [facility] [address] [place] [id number] Jul [facility] [address] [id number] [place] [address] 5498 Jun, [facility] [address] [id number] [place] [address] 8263 Jun, [facility] [address] [id number] [place] [address] 4401 Jun, [facility] [address] [id number], [place] [address] Jun, [facility] [address] [id number] [place] [address] 1460 Jun, [facility] [address] [id number], [place] [address] 1737 Jun, [facility] [address] [id number] [place] [address] 8935 May, [facility] [address] [id number], [place] [address]80 May, [facility] [address] [id number] [place] [address] 9983 May, [facility] [address] [id number] [place] [address] 1636 May, [facility] [address] [id number] [place] [address] 4966 May, [facility] [address] [id number] [place] [address] 1789 30 Apr, 2012 [facility] [address] [id number] [place] [address] 6456 15 Apr, 2012 [facility] [address] [id number] [place] [address] 2546 Apr, [facility] [address] [id number] [place] [address] 3616 Apr, [facility] [address] [id number] [place] [address] 2549 Apr, [facility] [address] [id number] [place] [address]- 6099 Apr, [facility] [address] [id number] [place] [address] 2562 26 Mar, 2012 [facility] [address] [id number] [place] [address]- 2076 20 Mar, 2012 [facility] [address] [id number] [place] [address]- 2801 20 Mar, 2012 [facility] [address] [id number] [place] [address] 254 19 Mar, 2012 [facility] [address] [id number] [place] [address]- 2544 19 Mar, 2012 [facility] [address] [id number] [place] [address] 2546 18 Mar, 2012 [facility] [address] [id number] [place] [address]- 2544 18 Mar, 2012 [facility] [place] [facility] [address] [id number] [place] [address] 2546 10 Mar, 2012 [facility] [place] [facility] [address] [id number] [place] [address]- 2546 10 Mar, 2012 [facility] [address] [id number] [place] [address] 254 Mar, [facility] [place] [facility] [address] [id number] [place] [address]- 3731 Mar, [facility] [place] [facility] [address] [id number] [place] [address]- 6271 Feb, [facility] [place] [facility] [address] [id number] [place] [address]- 4662 Feb, [facility] [place] [facility] [address] [id number] [place] [address], [place] [address]- 2559 Feb, [facility] [place] [facility] [address] [id number] [place] [address]- 3959 Feb, [facility] [place] [facility] [address] [id number] [place] [address]- 0589 Feb, [facility] [place] [facility] [address] [id number] [place] [address]- 6521 Feb, [facility] [place] [facility] [address] [id number] [place] [address]- 3444 Feb, [facility] [place] [facility] [address] [id number] [place] [address]- 6171 Feb, [facility] [place] [facility] [address] [id number] [place] [address]- 5107 Feb, [facility] [place] [facility] [address] [id number] [place] [address]- 5097 Feb, [facility] [place] [facility] [address] [id number], [place] [address] 2446 Feb, [facility] [place] [facility] [address] [id number] [place] [address]- 3531 Jan, [facility] [place] [facility] [address] [id number] [place] [address]- 9880 Jan, [facility] [place] [facility] [address] [id number] [place] [address]- 7473 Jan, [facility] [place] [facility] [address] [id number], [place] [address]- 4228 Jan, [facility] [place] [facility] [address] [id number] [place] [address]- 2673 Jan, [facility] [place] [facility] [address] [id number] [place] [address]- 2286 Jan, [facility] [place] [facility] [address] [id number] [place] [address]- 8408 Jan, [facility] [place] [facility] [address] [id number] [place] [address]- 2884 24 Dec, 2011 [facility] [place] [facility] [address] [id number] [place] [address]- 0918 17 Dec, 2011 [facility] [place] [facility] [address] [id number] [place] [address]- 5077 13 Dec, 2011 [facility] [place] [facility] [address] [id number] [place] [address]- 1502 Dec, [facility] [place] [facility] [address] [id number] [place] [address]- 5207 Nov, [facility] [place] [facility] [address] [id number] [place] [address]- 9381 Nov, [facility] [place] [facility] [address] [id number] [place] [address]- 0386 Nov, [facility] [place] [facility] [address] [id number] [place] [address]- 0861 15 Nov, 2011 [facility] [place] [facility] [address] [id number] [place] [address]- 6516 14 Nov, 2011 [facility] [place] [facility] [address] [id number] [place] [address]- 1973 13 Nov, 2011 [facility] [place] [facility] [address] [id number] [place] [address]- 9070 10 Nov, 2011 [facility] [place] [facility] [address] [id number] [place] [address]- 5203 09 Nov, 2011 [facility] [place] [facility] [address] [id number] [place] [address]- 3560 Nov, [facility] [place] [facility] [address] [id number] [place] [address]- 4140 Nov, [facility] [place] [facility] [address] [id number] [place] [address]- 1866 Nov, [facility] [place] [facility] [address] [id number] [place] [address]- 7159 Nov, [facility] [place] [facility] [address] [id number] [place] [address]- 8314 Nov, [facility] [place] [facility] [address] [id number] [place] [address]- 3270 Oct, [facility] [place] [facility] [address] [id number] [place] [address]- 2909 Oct, [facility] [place] [facility] [address] [id number] [place] [address]- 5225 Oct, [facility] [address] [id number] [place] [address]- 0384 Oct, [facility] [place] [facility] [address] [id number] [place] [address]- 8781 Oct, [facility] [place] [facility] [address] [id number] [place] [address]- 0093 Oct, [facility] [place] [facility] [address] [id number] [place] [address]- 1959 Oct, [facility] [place] [facility] [address] [id number] [place] [address]- 7265 Oct, [facility] [place] [facility] [address] [id number] [place] [address]- 9197 Oct, [facility] [place] [facility] [address] [id number] [place] [address]- 8529 Sep, [facility] [place] [facility] [address] [id number] [place] [address]- 6883 Sep, [facility] [place] [facility] [address] [id number] [place] [address]- 1924 Sep, [facility] [place] [facility] [address] [id number] [place] [address]- 3143 Sep, [facility] [place] [facility] [address] [id number] [place] [address]- 4079 Sep, [facility] [place] [facility] [address] [id number] [place] [address]- 4277 Sep, [facility] [place] [facility] [address] [id number] [place] [address]- 9866 Sep, [facility] [place] [facility] [address] [id number] [place] [address]- 4898 Sep, [facility] [place] [facility] [address] [id number] [place] [address]- 0006 August, [facility] [place] [facility] [address] [id number] [place] [address]- 8029 August, [facility] [place] [facility] [address] [id number] [place] [address]- 6212 August, [facility] [place] [facility] [address] [id number] [place] [address]- 6447 August, [facility] [place] [facility] [address] [id number] [place] [address]- 8918 August, [facility] [place] [facility] [address] [id number] [place] [address]- 2717 August, [facility] [place] [facility] [address] [id number] [place] [address]- 6004 August, [facility] [place] [facility] [address] [id number] [place] [address]- 5627 August, [facility] [place] [facility] [address] [id number] [place] [address]- 2985 August, [facility] [place] [facility] [address] [id number] [place] [address]- 3155 August, [facility] [address] [facility] [id number] [place] [address]- 2368 August, [facility] [address] [facility] [id number] [place] [address]- 9808 August, [facility] [address] [facility] [id number] [place] [address]- 9475 Oct, IMMUNIZATIONS No Known Immunizations SOCIAL HISTORY [...] Hospitalization History suicidal ideations-[place] 12/28 Hospitalization History hypoxia--[facility] 02/13/2016 Hospitalization History shortness of breath at june 2016 Hospitalization History Shortness of breath at august 2016 Hospitalization History SOB, chest pain at 12/2016
--- OUTSIDE RECORDS SUMMARY | 2017-11-24 18:11 | XMS REPORT ---
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 [address]- 2546 Nov, Diarrhea 787.91 [facility] [address], [place] [address]- 2546 Nov, Diarrhea 787.91 and Hyperlipidemia 272.4 [facility] [id number] [place] [address] 91870 2546 Nov, Diarrhea 787.91 [facility] [id number] [place] [address] 30581 2546 Nov, Affective disorder 296.90 [facility] [id number] [place] [address] 45703 2546 Nov, Affective disorder 296.90 [facility] [id number] [place] [address] 56249 2546 Nov, Affective disorder 296.90 [facility] [id number] [place] [address] 59997- 0836 Nov, [facility] [id number] [place] [address] 45950- 7706 Nov, [facility] [address], [place] [address]- 1516 Nov, [facility] [id number] [place] [address] 75775 2540 Nov, Episodic mood disorder 296.90 [facility] [address], [place] [address] 2546 Nov, [facility] [address], [place] [address] 2546 Nov, [facility] [address], [place] [address] 2546 Nov, [facility] [id number] [place] [address] 89968 2546 Nov, [facility] [address], [place] [address]- 2546 Nov, [facility] [address], [place] [address]- 1883 Nov, Lymphedema 457.1 ; Hyperlipidemia 272.4 ; Essential hypertension, benign 401.1 and Numbness of toes 782.0 [facility] [address], [place] [address]- 6286 Nov, Episodic mood disorder 296.90 [facility] [address], [place] [address]- 0339 Oct, [facility] [address], [place] [address]- 4405 Oct, [facility] [id number] [place] [address], [place] [address]- 2334 Oct, [facility] [address], [place] [address]- 2212 Oct, [facility] [id number] [place] [address] 64698- 7665 Oct, [facility] [address], [place] [address]- 6335 Oct, [facility] [address], [place] [address]- 8391 Oct, [facility] [address], [place] [address]- 6693 Oct, [facility] [address], [place] [address]- 4910 Oct, Episodic mood disorder 296.90 [facility] [address]- 9476 Sep, [facility] [address], [place] [address]- 3201 Sep, [facility] [address] 1425 Sep, [facility] [id number] [place] [address] 82888- 0529 Sep, [facility] [id number], [place] [address]- 2804 Sep, [facility] [address], [place] [address]- 2422 Sep, Episodic mood disorder 296.90 [facility] [address], [place] [address]- 6635 Sep, Unspecified episodic mood disorder 296.90 [facility] [address], [place] [address]- 7410 18 Sep, 2014 [facility] [id number] [place] [address] 62217- 3610 Sep, [facility] [address], [place] [address]- 7412 16 Sep, 2014 Episodic mood disorder 296.90 [facility] [address], [place] [address]- 2043 Sep, [facility] [address], [place] [address]- 5188 Sep, [facility] [address], [place] [address]- 9038 Sep, [facility] [address], [place] [address]- 1289 Sep, Hematemesis 578.0 and Vomiting 787.03 [facility] [address], [place] [address]- 7809 09 Sep, 2014 Episodic mood disorder 296.90 [facility] [address], [place] [address]- 9505 08 Sep, 2014 [facility] [address], [place] [address]- 9446 08 Sep, 2014 [facility] [address], [place] [address]- 8659 05 Sep, 2014 Diabetes mellitus without mention of complication, type II or unspecified type, not stated as uncontrolled 250.00 and Other chronic pain 338.29 [facility] [address]- 0827 Sep, Episodic mood disorder 296.90 [facility] [address], [place] [address]- 5990 Sep, [facility] [id number] [place] [address] 81134- 3284 Sep, Episodic mood disorder 296.90 [facility] [address]- 9794 Sep, [facility] [id number] [place] [address] 97493- 6232 August, [facility] [address], [place] [address]- 4470 August, [facility] [address], [place] [address]- 1107 August, Episodic mood disorder 296.90 [facility] [address], [place] [address]- 1095 August, [facility] [address], [place] [address]- 6573 August, Unspecified episodic mood disorder 296.90 [facility] [address], [place] [address]- 4332 August, Vomiting 787.03 [facility] [address], [place] [address]- 5883 August, [facility] [address]- 1279 August, [facility] [address]- 8662 August, [facility] [address]- 6441 August, [facility] [place] [facility] [address] [id number] [place] [address]- 3767 August, [facility] [place] [facility] [address] [id number] [place] [address]- 4748 28 Jul, 2014 [facility] [place] [facility] [address] [id number] [place] [address]- 5664 Jul, [facility] [place] [facility] [address] [id number] [place] [address]- 7326 Jul, [facility] [place] [facility] [address] [id number] [place] [address]- 6286 30 Jun, 2014 [facility] [place] [facility] [address] [id number] [place] [address]- 0009 Jun, [facility] [place] [facility] [address] [id number] [place] [address]- 1846 Jun, [facility] [place] [facility] [address] [id number] [place] [address]- 8834 Jun, [facility] [place] [facility] [address] [id number] [place] [address]- 6295 Jun, [facility] [place] [facility] [address] [id number] [place] [address]- 3042 Jun, [facility] [place] [facility] [address] [id number] [place] [address]- 2522 Jun, [facility] [place] [facility] [address] [id number] [place] [address]- 9727 30 Jun, 2014 [facility] [place] [facility] [address] [id number] [place] [address]- 8710 Jun, [facility] [place] [facility] [address] [id number] [place] [address]- 0335 Jun, [facility] [place] [facility] [address] [id number] [place] [address]- 0568 Jun, [facility] [place] [facility] [address] [id number] [place] [address]- 1650 Jun, [facility] [place] [facility] [address] [id number] [place] [address]- 7807 Jun, [facility] [place] [facility] [address] [id number] [place] [address]- 9639 Jun, [facility] [place] [facility] [address] [id number] [place] [address]- 1811 Jun, [facility] [place] [facility] [address] [id number] [place] [address]- 2876 Jun, [facility] [place] [facility] [address] [id number] [place] [address]- 2927 Jun, [facility] [place] [facility] [address] [id number] [place] [address]- 0253 Jun, [facility] [place] [facility] [address] [id number] [place] [address]- 4789 Jun, [facility] [place] [facility] [address] [id number] [place] [address]- 5859 Jun, [facility] [place] [facility] [address] [id number] [place] [address]- 2685 Jun, [facility] [place] [facility] [address] [id number] [place] [address]- 2843 Jun, [facility] [place] [facility] [address] [id number] [place] [address]- 1288 Jun, [facility] [place] [facility] [address] [id number] [place] [address]- 3022 Jun, [facility] [place] [facility] [address] [id number] [place] [address]- 7978 Jun, [facility] [place] [facility] [address] [id number] [place] [address]- 0576 19 Jun, 2014 [facility] [place] [facility] [address] [id number] [place] [address]- 4127 Jun, [facility] [place] [facility] [address] [id number] [place] [address]- 9360 18 Jun, 2014 [facility] [place] [facility] [address] [id number] [place] [address]- 9821 18 Jun, 2014 [facility] [place] [facility] [address] [id number] [place] [address]- 5167 17 Jun, 2014 [facility] [place] [facility] [address] [id number] [place] [address]- 0395 17 Jun, 2014 [facility] [place] [facility] [address] [id number] [place] [address]- 2160 16 Jun, 2014 [facility] [place] [facility] [address] [id number] [place] [address] 16 Jun, 2014 [facility] [place] [facility] [address] [id number] [place] [address] 16 Jun, 2014 [facility] [place] [facility] [address] [id number] [place] [address] 16 Jun, 2014 [facility] [place] [facility] [address] [id number] [place] [address] 16 Jun, 2014 [facility] [place] [facility] [address] [id number] [place] [address] 16 Jun, 2014 [facility] [place] [facility] [address] [id number] [place] [address] 13 Jun, 2014 [facility] [place] [facility] [address] [id number] [place] [address] 13 Jun, 2014 [facility] [place] [facility] [address] [id number] [place] [address] 12 Jun, 2014 [facility] [place] [facility] [address] [id number] [place] [address]- [address] 12 Jun, 2014 [facility] [place] [facility] [address] [id number] [place] [address]- [address] 09 Jun, 2014 [facility] [place] [facility] [address] [id number] [place] [address]- [address] Jun, [facility] [place] [facility] [address] [id number] [place] [address] Jun, [facility] [place] [facility] [address] [id number] [place] [address]- [address]695 Jun, [facility] [place] [facility] [address] [id number] [place] [address]- [address] Jun, [facility] [place] [facility] [address] [id number] [place] [address]- [address]12 Jun, [facility] [place] [facility] [address] [id number] [place] [address]- [address] Jun, [facility] [place] [facility] [address] [id number] [place] [address]- [address] Jun, [facility] [place] [facility] [address] [id number] [place] [address]- [address]758 Jun, [facility] [place] [facility] [address] [id number] [place] [address]- [address] Jun, [facility] [place] [facility] [address] [id number] [place] [address]- [address]101 Jun, [facility] [place] [facility] [address] [id number] [place] [address]- [address] Jun, [facility] [place] [facility] [address] [id number], [place] [address] Jun, [facility] [place] [facility] [address] [id number], [place] [address] Jun, [facility] [place] [facility] [address] [id number] [place] [address] Jun, [facility] [place] [facility] [address] [id number] [place] [address]- [address]28 Jun, [facility] [place] [facility] [address] [id number] [place] [address]- [address]283 May, [facility] [place] [facility] [address] [id number] [place] [address] 2546 May, 2014 [facility] [place] [facility] [address] [id number] [place] [address] 2546 May, 2014 [facility] [place] [facility] [address] [id number] [place] [address] 2546 May, 2014 [facility] [place] [facility] [address] [facility] [id number] [place] [address] 2546 May, 2014 [facility] [place] [facility] [address] [id number] [place] [address]- 254 May, 2014 [facility] [place] [facility] [address] [facility] [id number] [place] [address] 2546 May, 2014 [facility] [place] [facility] [address] [facility] [id number] [place] [address]- 8892 May, 2014 [facility] [place] [facility] [address] [facility] [id number] [place] [address]- [address]250 May, 2014 [facility] [place] [facility] [address] [facility] [id number] [place] [address]- 4033 May, 2014 [facility] [place] [facility] [address] [facility] [id number] [place] [address]- [address]99 18 May, 2014 [facility] [place] [facility] [address] [facility] [id number] [place] [address]- [address] 18 May, 2014 [facility] [place] [facility] [address] [facility] [id number], [place] [address]46 13 May, 2014 [facility] [place] [facility] [address] [facility] [id number] [place] [address]- 2546 13 May, 2014 [facility] [place] [facility] [address] [facility] [id number] [place] [address]- 2546 11 May, 2014 [facility] [place] [facility] [address] [facility] [id number] [place] [address]- [address]46 11 May, 2014 [facility] [place] [facility] [address] [facility] [id number] [place] [address]- 9570 May, 2014 [facility] [place] [facility] [address] [id number] [place] [address]- 8996 May, 2014 [facility] [place] [facility] [address] [id number] [place] [address]- 6086 May, 2014 [facility] [place] [facility] [address] [id number] [place] [address] May, 2014 [facility] [place] [facility] [address] [id number] [place] [address] May, 2014 [facility] [place] [facility] [address] [id number] [place] [address]- 4991 May, 2014 [facility] [place] [facility] [address] [facility] [id number] [place] [address]- 7580 May, 2014 [facility] [place] [facility] [address] [facility] [id number] [place] [address]- [address] May, 2014 [facility] [place] [facility] [address] [facility] [id number] [place] [address]- 5305 May, 2014 [facility] [place] [facility] [address] [facility] [id number] [place] [address]- 8609 May, 2014 [facility] [place] [facility] [address] [facility] [id number] [place] [address]- 7738 May, [facility] [place] [facility] [address] [facility] [id number] [place] [address]- 3649 Apr, [facility] [place] [facility] [address] [id number] [place] [address]- 8160 Apr, [facility] [place] [facility] [address] [id number] [place] [address]- 8195 Apr, [facility] [place] [facility] [address] [facility] [id number] [place] [address]- 6637 Apr, [facility] [place] [facility] [address] [facility] [id number] [place] [address]- 8399 Apr, [facility] [place] [facility] [address] [id number] [place] [address]- 0555 Apr, [facility] [place] [facility] [address] [id number] [place] [address]- 9857 Apr, [facility] [place] [facility] [address] [id number] [place] [address]- 4109 Apr, [facility] [place] [facility] [address] [id number] [place] [address]- 5831 Apr, [facility] [place] [facility] [address] [id number] [place] [address]- 4846 Apr, [facility] [place] [facility] [address] [id number] [place] [address]- 0357 Apr, [facility] [place] [facility] [address] [id number] [place] [address]- 1586 Apr, [facility] [place] [facility] [address] [id number], [place] [address]- 4238 Apr, [facility] [place] [facility] [address] [id number], [place] [address]- 2017 Apr, [facility] [place] [facility] [address] [id number], [place] [address]- 1351 Apr, [facility] [place] [facility] [address] [id number], [place] [address]- 1296 Apr, [facility] [place] [facility] [address] [id number], [place] [address]- 7370 Apr, [facility] [place] [facility] [address] [id number], [place] [address]- 4173 Apr, [facility] [place] [facility] [address] [id number], [place] [address]- 2289 Apr, [facility] [place] [facility] [address] [id number], [place] [address]- 0977 Apr, [facility] [place] [facility] [address] [id number] [place] [address]- 6035 Mar, [facility] [place] [facility] [address] [id number] [place] [address]- 6976 Mar, [facility] [place] [facility] [address] [id number] [place] [address]- 3226 Mar, [facility] [place] [facility] [address] [id number] [place] [address]- 5526 Mar, [facility] [place] [facility] [address] [id number] [place] [address]- 6522 Mar, [facility] [place] [facility] [address] [id number] [place] [address]- 9533 Mar, [facility] [place] [facility] [address] [id number] [place] [address]- 4533 Mar, [facility] [place] [facility] [address] [id number] [place] [address]- 2908 Mar, [facility] [place] [facility] [address] [id number] [place] [address]- 9950 15 Mar, 2014 [facility] [place] [facility] [address] [id number] [place] [address]- 6478 15 Mar, 2014 [facility] [place] [facility] [address] [id number] [place] [address]- 2063 15 Mar, 2014 [facility] [place] [facility] [address] [id number] [place] [address]- 2186 15 Mar, 2014 [facility] [place] [facility] [address] [id number] [place] [address]- 2457 Mar, [facility] [place] [facility] [address] [id number] [place] [address]- 6796 Mar, [facility] [place] [facility] [address] [id number] [place] [address]- 0682 02 Mar, 2014 [facility] [place] [facility] [address] [id number] [place] [address] Mar, [facility] [place] [facility] [address] [id number] [place] [address]- 1358 Feb, [facility] [place] [facility] [address] [id number] [place] [address]- 2328 Feb, [facility] [place] [facility] [address] [id number] [place] [address]- 5616 Feb, [facility] [place] [facility] [address] [id number] [place] [address]- 7760 Feb, [facility] [place] [facility] [address] [id number] [place] [address]- 2837 Feb, [facility] [place] [facility] [address] [id number] [place] [address]- 5566 Feb, [facility] [place] [facility] [address] [id number] [place] [address]- 6131 Feb, [facility] [place] [facility] [address] [id number] [place] [address]- 4237 Feb, [facility] [place] [facility] [address] [id number] [place] [address]- 5881 Feb, [facility] [place] [facility] [address] [id number] [place] [address]- 1717 Feb, [facility] [place] [facility] [address] [id number] [place] [address]- 7277 Feb, [facility] [place] [facility] [address] [id number] [place] [address]- 5777 Feb, [facility] [place] [facility] [address] [id number] [place] [address]- 6199 Feb, [facility] [place] [facility] [address] [id number] [place] [address]- 6654 Feb, [facility] [place] [facility] [address] [id number] [place] [address]- 8029 Feb, [facility] [place] [facility] [address] [id number] [place] [address]- 0067 Feb, [facility] [place] [facility] [address] [id number] [place] [address]- 0985 Feb, [facility] [place] [facility] [address] [id number] [place] [address]- 9591 Feb, [facility] [place] [facility] [address] [id number] [place] [address]- 0678 Feb, [facility] [place] [facility] [address] [id number] [place] [address]- 4217 Feb, [facility] [place] [facility] [address] [id number] [place] [address]- 9673 Feb, [facility] [place] [facility] [address] [id number] [place] [address]- 2886 Jan, [facility] [place] [facility] [address] [id number] [place] [address]- 9630 Jan, [facility] [place] [facility] [address] [id number] [place] [address]- 8226 Jan, [facility] [place] [facility] [address] [id number] [place] [address]- 0864 Jan, [facility] [place] [facility] [address] [id number] [place] [address]- 4766 Jan, [facility] [place] [facility] [address] [id number], [place] [address]- 8492 Jan, [facility] [place] [facility] [address] [id number], [place] [address]- 2809 Jan, [facility] [place] [facility] [address] [id number] [place] [address]- 8122 Jan, [facility] [place] [facility] [address] [id number] [place] [address]- 1074 Jan, [facility] [place] [facility] [address] [id number] [place] [address]- 5103 Jan, [facility] [place] [facility] [address] [id number] [place] [address]- 1713 17 Jan, 2013 [facility] [place] [facility] [address] [id number] [place] [address]- 4639 17 Jan, 2013 [facility] [place] [facility] [address] [id number] [place] [address]- 2802 17 Jan, 2013 [facility] [place] [facility] [address] [id number] [place] [address]- 8583 17 Jan, 2013 [facility] [place] [facility] [address] [id number] [place] [address]- 7625 15 Jan, 2013 [facility] [place] [facility] [address] [id number] [place] [address]- 3220 15 Jan, 2013 [facility] [place] [facility] [address] [id number] [place] [address]- 8554 14 Jan, 2013 [facility] [place] [facility] [address] [id number] [place] [address]- 0314 14 Jan, 2013 [facility] [place] [facility] [address] [id number] [place] [address]- 8226 13 Jan, 2013 [facility] [place] [facility] [address] [id number] [place] [address]- 5902 13 Jan, 2013 [facility] [place] [facility] [address] [id number] [place] [address]- 4936 13 Jan, 2013 [facility] [place] [facility] [address] [id number] [place] [address]- 3380 13 Jan, 2013 [facility] [place] [facility] [address] [id number] [place] [address]- 8022 10 Jan, 2013 [facility] [place] [facility] [address] [id number] [place] [address]- 7698 02 Jan, 2013 [facility] [place] [facility] [address] [id number] [place] [address]- 6763 02 Jan, 2014 [facility] [place] [facility] [address] [id number] [place]6 25 Sep, 2013 [facility] [place] [facility] [address] [id number] [place] [address] 2541 25 Sep, 2013 [facility] [place] [facility] [address] [id number] [place] [address] 2546 23 Sep, 2013 [facility] [place] [facility] [address] [id number] [place] [address]- 5453 23 Sep, 2013 [facility] [place] [facility] [address] [id number] [place] [address] 2540 19 Sep, 2013 [facility] [place] [facility] [address] [id number] [place] [address]- 0544 19 Sep, 2013 [facility] [place] [facility] [address] [id number] [place] [address]- 7367 17 Sep, 2013 [facility] [place] [facility] [address] [id number] [place] [address]- 5522 17 Sep, 2013 [facility] [place] [facility] [address] [id number] [place] [address]- 1586 09 Sep, 2013 [facility] [place] [facility] [address] [id number] [place] [address]- 3738 09 Sep, 2013 [facility] [place] [facility] [address] [id number] [place] [address]- 6845 08 Sep, 2013 [facility] [place] [facility] [address] [id number] [place] [address] 2543 08 Sep, 2013 [facility] [place] [facility] [address] [id number] [place] [address] 2542 04 Sep, 2013 [facility] [place] [facility] [address] [id number] [place] [address] 2549 04 Sep, 2013 [facility] [place] [facility] [address] [id number] [place] [address]- 2545 02 Sep, 2013 [facility] [place] [facility] [address] [id number] [place] [address]- 1270 02 Sep, 2013 [facility] [place] [facility] [address] [id number] [place] [address]- 7883 Dec, [facility] [place] [facility] [address] [id number] [place] [address]- 0950 Dec, [facility] [place] [facility] [address] [id number] [place] [address]- 1591 Nov, [facility] [place] [facility] [address] [id number] [place] [address]- 3858 Nov, [facility] [place] [facility] [address] [id number] [place] [address]- 9322 Nov, [facility] [place] [facility] [address] [id number] [place] [address]- 0497 Nov, [facility] [place] [facility] [address] [id number] [place] [address]- 8370 Nov, [facility] [place] [facility] [address] [id number] [place] [address]- 2020 Nov, [facility] [place] [facility] [address] [id number] [place] [address]- 4043 Nov, [facility] [place] [facility] [address] [id number] [place] [address]- 1985 Nov, [facility] [place] [facility] [address] [id number] [place] [address]- 8628 Nov, [facility] [place] [facility] [address] [id number] [place] [address]- 2219 Nov, [facility] [place] [facility] [address] [id number] [place] [address]- 5294 Nov, [facility] [place] [facility] [address] [id number] [place] [address]- 0394 Nov, [facility] [place] [facility] [address] [id number] [place] [address]- 7915 Oct, [facility] [place] [facility] [address] [id number] [place] [address]- 6370 Oct, [facility] [place] [facility] [address] [id number] [facility] [place] [address]- 4116 Oct, [facility] [place] [facility] [address] [id number] [place] [address]- 1895 Oct, [facility] [place] [facility] [address] [id number] [place] [address]- 0981 Oct, [facility] [place] [facility] [address] [id number] [place] [address]- 2733 Oct, [facility] [place] [facility] [address] [id number] [place] [address]- 7150 Oct, [facility] [place] [facility] [address] [id number] [place] [address]- 4986 Oct, [facility] [place] [facility] [address] [id number] [place] [address]- 0376 Oct, [facility] [place] [facility] [address] [id number] [place] [address]- 2890 Oct, [facility] [place] [facility] [address] [id number] [place] [address]- 1760 Oct, [facility] [place] [facility] [address] [id number] [place] [address]- 9880 Oct, [facility] [place] [facility] [address] [id number] [place] [address]- 0648 Oct, [facility] [place] [facility] [address] [id number] [place] [address]- 7209 14 Oct, 2013 [facility] [place] [facility] [address] [id number] [place] [address]- 9641 Oct, [facility] [place] [facility] [address] [id number] [place] [address]- 3151 Oct, [facility] [place] [facility] [address] [id number] [place] [address]- 1118 Oct, [facility] [place] [facility] [address] [id number] [place] [address]- 5123 Sep, [facility] [place] [facility] [address] [id number] [place] [address]- 2825 Sep, [facility] [place] [facility] [address] [id number] [place] [address]- 8488 Sep, [facility] [place] [facility] [address] [id number] [place] [address]- 8050 Sep, [facility] [place] [facility] [address] [id number] [place] [address]- 5484 Sep, [facility] [place] [facility] [address] [id number] [place] [address]- 6679 18 Sep, 2013 [facility] [place] [facility] [address] [id number] [place] [address]- 8670 Sep, [facility] [place] [facility] [address] [id number] [place] [address]- 7092 Sep, [facility] [place] [facility] [address] [id number], [place] [address]- 7607 Sep, [facility] [place] [facility] [address] [id number], [place] [address]- 2629 Sep, [facility] [place] [facility] [address] [id number] [place] [address]- 2853 Sep, [facility] [place] [facility] [address] [id number], [place] [address]- 2237 Sep, [facility] [place] [facility] [address] [id number], [place] [address]- 1964 Sep, [facility] [place] [facility] [address] [id number], [place] [address]- 8881 Sep, [facility] [place] [facility] [address] [id number], [place] [address]- 1216 09 Sep, 2013 [facility] [place] [facility] [address] [id number], [place] [address]- 8220 Sep, [facility] [place] [facility] [address] [id number] [place] [address]- 9512 07 Sep, 2013 [facility] [place] [facility] [address] [id number] [place] [address]- 8153 Sep, [facility] [place] [facility] [address] [id number] [place] [address]- 6668 Sep, [facility] [place] [facility] [address] [id number] [place] [address]- 0970 Sep, [facility] [place] [facility] [address] [id number] [place] [address]- 2746 Sep, [facility] [place] [facility] [address] [id number] [place] [address]- 7216 Sep, [facility] [place] [facility] [address] [id number] [place] [address]- 8229 August, [facility] [place] [facility] [address] [id number] [place] [address]- 6986 August, [facility] [place] [facility] [address] [id number] [place] [address]- 5874 August, [facility] [place] [facility] [address] [id number] [place] [address]- 6367 August, [facility] [place] [facility] [address] [id number] [place] [address]- 2809 August, [facility] [place] [facility] [address] [id number] [place] [address]- 2736 August, [facility] [place] [facility] [address] [id number] [place] [address]- 9687 August, [facility] [place] [facility] [address] [id number] [place] [address]- 7170 August, [facility] [place] [facility] [address] [id number] [place] [address]- 3013 August, [facility] [place] [facility] [address] [id number] [place] [address]- 5614 August, [facility] [place] [facility] [address] [id number] [place] [address]- 7839 August, [facility] [place] [facility] [address] [id number] [place] [address]- 2831 Jul, [facility] [place] [facility] [address] [id number] [place] [address]- 6396 Jul, [facility] [place] [facility] [address] [id number] [place] [address]- 3856 Jul, [facility] [place] [facility] [address] [id number] [place] [address]- 8824 Jul, [facility] [place] [facility] [address] [id number] [place] [address]- 8817 Jul, [facility] [place] [facility] [address] [id number] [place] [address]- 5365 Jul, [facility] [place] [facility] [address] [id number] [place] [address]- 0986 Jul, [facility] [place] [facility] [address] [id number] [place] [address]- 0906 Jul, [facility] [place] [facility] [address] [id number] [place] [address]- 0029 Jul, [facility] [place] [facility] [address] [id number] [place] [address]- 1243 Jul, [facility] [place] [facility] [address] [id number] [place] [address]- 2666 16 Jul, 2013 [facility] [place] [facility] [address] [id number] [place] [address]- 1020 Jul, [facility] [place] [facility] [address] [id number] [place] [address]- 9137 Jul, [facility] [place] [facility] [address] [id number] [place] [address]- 4607 Jul, [facility] [place] [facility] [address] [id number] [place] [address]- 0329 Jul, [facility] [place] [facility] [address] [id number] [place] [address]- 4856 Jul, [facility] [place] [facility] [address] [id number] [place] [address]- 0109 Jul, [facility] [place] [facility] [address] [id number] [place] [address] Jul, [facility] [place] [facility] [address] [id number] [place] [address] Jul, [facility] [place] [facility] [address] [id number] [place] [address] Jul, [facility] [place] [facility] [address] [id number] [place] [address] Jul, [facility] [place] [facility] [address] [id number] [place] [address] Jul, [facility] [place] [facility] [address] [id number] [place] [address] Jul, [facility] [place] [facility] [address] [id number] [place] [address] Jun, [facility] [place] [facility] [address] [id number] [place] [address] Jun, [facility] [place] [facility] [address] [id number] [place] [address] Jun, [facility] [place] [facility] [address] [id number] [place] [address] 84[address] Jun, [facility] [place] [facility] [address] [id number] [place] [address] Jun, [facility] [place] [facility] [address] [id number] [place] [address] Jun, [facility] [place] [facility] [address] [id number] [place] [address]- [address] Jun, [facility] [place] [facility] [address] [id number] [place] [address] 7979 Jun, [facility] [place] [facility] [address] [id number] [place] [address] Jun, [facility] [place] [facility] [address] [id number] [place] [address] 18 Jun, 2013 [facility] [place] [facility] [address] [id number] [place] [address] Jun, [facility] [place] [facility] [address] [id number] [place] [address] Jun, [facility] [place] [facility] [address] [id number] [place] [address] May, [facility] [place] [facility] [address] [id number] [place] [address] May, [facility] [place] [facility] [address] [id number] [place] [address]279 Apr, [facility] [place] [facility] [address] [id number] [place] [address]- [address] Apr, [facility] [place] [facility] [address] [id number] [place] [address]- [address] Apr, [facility] [place] [facility] [address] [id number] [place] [address] Apr, [facility] [place] [facility] [address] [id number] [place] [address]- [address] 28 Apr, 2013 [facility] [place] [facility] [address] [id number] [place] [address] Apr, [facility] [place] [facility] [address] [id number] [place] [address] Apr, [facility] [place] [facility] [address] [id number] [place] [address]- [address] Apr, [facility] [place] [facility] [address] [id number] [place] [address]- [address]180 Apr, [facility] [place] [facility] [address] [id number] [place] [address]- [address] Apr, [facility] [place] [facility] [address] [id number] [place] [address]- 3066 Apr, [facility] [place] [facility] [address] [id number] [place] [address] Mar, [facility] [place] [facility] [address] [id number] [place] [address] Mar, [facility] [place] [facility] [address] [id number] [place] [address]687 Mar, [facility] [place] [facility] [address] [id number] [place] [address]284 Mar, [facility] [place] [facility] [address] [id number] [place] [address] 9417 Feb, [facility] [place] [facility] [address] [id number] [place] [address]- [address]562 Feb, [facility] [place] [facility] [address] [id number] [place] [address]- [address] Feb, [facility] [place] [facility] [address] [id number], [place] [address] Feb, [facility] [place] [facility] [address] [id number], [place] [address]- [address] Feb, [facility] [place] [facility] [address] [id number], [place] [address] Feb, [facility] [place] [facility] [address] [id number] [place] [address] Feb, [facility] [place] [facility] [address] [id number], [place] [address] Feb, [facility] [place] [facility] [address] [id number], [place] [address]- [address] Feb, [facility] [place] [facility] [address] [id number] [place] [address]- [address] 02 Feb, 2013 [facility] [address] [id number] [place] [address]- [address] Feb, [facility] [place] [facility] [address] [id number] [place] [address]- 44[address] Jan, [facility] [place] [facility] [address] [id number] [place] [address]- 1682 Jan, [facility] [place] [facility] [address] [id number] [place] [address]- 3684 Jan, [facility] [place] [facility] [address] [id number] [place] [address]- 3318 Jan, [facility] [place] [facility] [address] [id number] [place] [address]- 2555 Jan, [facility] [place] [facility] [address] [id number] [place] [address]- 3512 Jan, [facility] [place] [facility] [address] [id number] [place] [address]- 1303 Jan, [facility] [place] [facility] [address] [id number] [place] [address]- 2497 Jan, [facility] [place] [facility] [address] [id number] [place] [address]- [address] 30 Dec, 2012 [facility] [place] [facility] [address] [id number] [place] [address]- [address]691 25 Sep, 2012 [facility] [place] [facility] [address] [id number] [place] [address]- 2541 18 Sep, 2012 [facility] [place] [facility] [address] [id number] [place] [address]- 9802 17 Sep, 2012 [facility] [place] [facility] [address] [id number] [place] [address]- [address]32 17 Sep, 2012 [facility] [place] [facility] [address] [id number] [place] [address]- [address]111 16 Dec, 2012 [facility] [place] [facility] [address] [id number] [place] [address]- 5935 13 Dec, 2012 [facility] [place] [facility] [address] [id number] [place] [address]- 8987 11 Dec, 2012 [facility] [place] [facility] [address] [id number] [place] [address]- [address] 05 Dec, 2012 [facility] [place] [facility] [address] [id number] [place] [address]- 8274 04 Dec, 2012 [facility] [place] [facility] [address] [id number] [place] [address]- 8474 30 Nov, 2012 [facility] [place] [facility] [address] [id number] [place] [address]- 68[address] Nov, [facility] [place] [facility] [address] [id number] [place] [address]- 7715 Nov, [facility] [place] [facility] [address] [id number] [place] [address]- 8637 Nov, [facility] [place] [facility] [address] [id number] [place] [address]- 8181 Nov, [facility] [place] [facility] [address] [id number] [place] [address]- 2819 Nov, [facility] [place] [facility] [address] [id number] [place] [address]- 2894 Nov, [facility] [place] [facility] [address] [id number] [place] [address]- 8409 Oct, [facility] [place] [facility] [address] [id number] [place] [address]- 2526 Oct, [facility] [place] [facility] [address] [id number] [place] [address] Oct, [facility] [place] [facility] [address] [id number] [place] [address] Oct, [facility] [place] [facility] [address] [id number] [place] [address] 15 Oct, 2012 [facility] [place] [facility] [address] [id number] [place] [address] Oct, [facility] [place] [facility] [address] [id number] [place] [address] Sep, [facility] [place] [facility] [address] [id number] [place] [address] Sep, [facility] [place] [facility] [address] [id number] [place] [address] Sep, [facility] [place] [facility] [address] [id number] [place] [address] 14 Sep, 2012 [facility] [place] [facility] [address] [id number] [place] [address] Sep, [facility] [place] [facility] [address] [id number] [place] [address]136 Sep, [facility] [place] [facility] [address] [id number] [place] [address] Sep, [facility] [place] [facility] [address] [id number] [place] [address] Sep, [facility] [place] [facility] [address] [id number] [place] [address] 3555 Sep, [facility] [place] [facility] [address] [id number] [place] [address]287 August, [facility] [place] [facility] [address] [id number] [place] [address] August, [facility] [place] [facility] [address] [id number] [place] [address] 5149 August, [facility] [place] [facility] [address] [id number] [place] [address] 2319 August, [facility] [place] [facility] [address] [id number] [place] [address] 9663 August, [facility] [place] [facility] [address] [id number] [place] [address] 4866 August, [facility] [address] [id number] [place] [address] 3766 August, [facility] [address] [id number] [place] [address] 25[address] August, [facility] [address] [id number] [place] [address] 8936 Jul, [facility] [address] [facility] [id number] [place] [address] Jul, [facility] [address] [place], [place] [id number] Jul [facility] [address] [facility] [id number] [place] [address] 9[address] Jun, [facility] [address] [facility] [id number] [place] [address]286 Jun, [facility] [address] [facility] [id number] [place] [address] 9149 Jun, [facility] [address] [facility] [id number] [place] [address] Jun, [facility] [address] [facility] [id number] [place] [address] 5446 Jun, [facility] [address] [id number] [place] [address] 8[address] Jun, [facility] [address] [facility] [id number] [place] [address] May, [facility] [address] [id number] [place] [address]796 May, [facility] [address] [id number] [place] [address] 1376 May, [facility] [address] [facility] [id number] [place] [address] 8446 May, [facility] [address] [id number] [place] [address] 7667 May, [facility] [address] [id number] [place] [address] 9445 Apr, [facility] [address] [id number] [place] [address] 3456 Apr, [facility] [address] [id number] [place] [address]- 0436 Apr, [facility] [address] [id number] [place] [address]- 8474 Apr, [facility] [address] [id number] [place] [address]- 9432 Apr, [facility] [address] [id number] [place] [address] 1227 Apr, [facility] [address] [id number] [place] [address] 8941 Mar, [facility] [address] [id number] [place] [address] 5864 Mar, [facility] [address] [id number] [place] [address]- 1842 Mar, [facility] [address] [id number] [place] [address] Mar, [facility] [address] [id number] [place] [address] 4210 Mar, [facility] [address] [id number] [place] [address]- 3096 18 Mar, 2012 [facility] [place] [facility] [address] [id number] [place] [address]- 0046 18 Mar, 2012 [facility] [address] [id number] [place] [address]- 4151 10 Mar, 2012 [facility] [address] [id number] [place] [address]- 3627 Mar, [facility] [place] [facility] [address] [id number] [place] [address] 2761 Mar, [facility] [place] [facility] [address] [id number] [place] [address] Mar, [facility] [place] [facility] [address] [id number] [place] [address]- 2621 Feb, [facility] [place] [facility] [address] [id number] [place] [address]- 2190 Feb, [facility] [place] [facility] [address] [id number] [place] [address]- 8559 Feb, [facility] [place] [facility] [address] [id number] [place] [address]- 3986 Feb, [facility] [place] [facility] [address] [id number] [place] [address]- 0418 Feb, [facility] [place] [facility] [address] [id number] [place] [address]- 9702 Feb, [facility] [place] [facility] [address] [id number] [place] [address]- 2911 Feb, [facility] [place] [facility] [address] [id number] [place] [address]- 7867 Feb, [facility] [place] [facility] [address] [id number], [place] [address]20 Feb, [facility] [place] [facility] [address] [id number], [place] [address] 1295 Feb, [facility] [place] [facility] [address] [id number] [place] [address]- 1444 Feb, [facility] [place] [facility] [address] [id number] [place] [address]- 1043 Jan, [facility] [place] [facility] [address] [id number] [place] [address]- 1038 Jan, [facility] [place] [facility] [address] [id number] [place] [address]- 5996 Jan, [facility] [place] [facility] [address] [id number] [place] [address]- 9750 Jan, [facility] [place] [facility] [address] [id number] [place] [address]- 1026 Jan, [facility] [place] [facility] [address] [id number] [place] [address]- 3569 Jan, [facility] [place] [facility] [address] [id number] [place] [address]- 3167 Jan, [facility] [place] [facility] [address] [id number] [place] [address]- 8244 24 Dec, 2011 [facility] [place] [facility] [address] [id number] [place] [address]- 4382 17 Dec, 2011 [facility] [place] [facility] [address] [id number] [place] [address]- 9884 13 Dec, 2011 [facility] [place] [facility] [address] [id number] [place] [address]- 5069 12 Dec, 2011 [facility] [place] [facility] [address] [id number] [place] [address]- 9951 23 Nov, 2011 [facility] [place] [facility] [address] [id number] [place] [address]- 1702 20 Nov, 2011 [facility] [place] [facility] [address] [id number] [place] [address]- 6070 17 Nov, 2011 [facility] [place] [facility] [address] [id number] [place] [address]- [address] 15 Nov, 2011 [facility] [place] [facility] [address] [id number] [place] [address]- 8967 14 Nov, 2011 [facility] [place] [facility] [address] [id number] [place] [address]- 0669 13 Nov, 2011 [facility] [place] [facility] [address] [id number] [place] [address]- 9022 Nov, [facility] [place] [facility] [address] [id number] [place] [address]- 9280 Nov, [facility] [place] [facility] [address] [id number] [place] [address]- 3437 Nov, [facility] [place] [facility] [address] [id number] [place] [address]- 1795 Nov, [facility] [place] [facility] [address] [id number] [place] [address]- 7013 Nov, [facility] [place] [facility] [address] [id number] [place] [address]- 5566 Nov, [facility] [place] [facility] [address] [id number] [place] [address]- 0805 Nov, [facility] [place] [facility] [address] [id number] [place] [address]- 0203 Oct, [facility] [place] [facility] [address] [id number] [place] [address]- 7553 Oct, [facility] [place] [facility] [address] [id number] [place] [address]- 5825 Oct, [facility] [place] [facility] [address] [id number] [place] [address]- 2744 Oct, [facility] [place] [facility] [address] [id number] [place] [address]- 6316 Oct, [facility] [place] [facility] [address] [id number] [place] [address]- 5835 Oct, [facility] [place] [facility] [address] [id number] [place] [address]- 0691 Oct, [facility] [place] [facility] [address] [id number] [place] [address]- 5926 Oct, [facility] [place] [facility] [address] [id number] [place] [address]- 7766 Oct, [facility] [place] [facility] [address] [id number] [place] [address]- 5519 Sep, [facility] [place] [facility] [address] [id number] [place] [address]- 2772 Sep, [facility] [place] [facility] [address] [id number] [place] [address]- 1045 Sep, [facility] [place] [facility] [address] [facility] [id number] [place] [address]- 3786 Sep, [facility] [place] [facility] [address] [id number] [place] [address]- 8943 Sep, [facility] [place] [facility] [address] [id number] [place] [address]- 6835 Sep, [facility] [place] [facility] [address] [id number] [place] [address]- 8407 Sep, [facility] [place] [facility] [address] [place] [id number] [place] [address]- 2975 Sep, [facility] [place] [facility] [address] [id number] [place] [address]- 5706 August, [facility] [place] [facility] [address] [id number] [place] [address]- 8990 August, [facility] [place] [facility] [address] [facility] [id number] [place] [address]- 0277 August, [facility] [place] [facility] [address] [id number] [place] [address]- 8096 August, [facility] [place] [facility] [address] [id number] [place] [address]- 9892 August, [facility] [place] [facility] [address] [id number] [place] [address]- 8432 August, [facility] [place] [facility] [address] [facility] [id number] [place] [address]- 7144 August, [facility] [place] [facility] [address] [facility] [id number] [place] [address]- 2507 August, [facility] [place] [facility] [address] [facility] [id number] [place] [address]- 4746 August, [facility] [address] [facility] [id number][place] [address] August, [facility] [address] [facility] [id number], [place] [address]- 1666 August, [facility] [address] [facility] [id number], [place] [address]- 3480 August, [facility] [address] [facility] [id number], [place] [address]- 2635 Oct, IMMUNIZATIONS No Known Immunizations SOCIAL HISTORY Never Assessed REASON FOR VISIT Cold symptoms/ swelling--tcuppettRN PLAN OF CARE Activity Details Follow Up After hospitalization Reason: VITAL SIGNS Height 63 in 2016-12-27 Weight 543.1 lbs 2016-12-27 Temperature 98.0 degrees Fahrenheit 2016-12-27 Heart Rate 102 bpm 2016-12-27 Respiratory Rate 30 2016-12-27 Oximetry 91 % 2016-12-27 BMI 96.20 kg/m2 2016-12-27 Blood pressure systolic 140 mmHg 2016-12-27 Blood pressure diastolic 80 mmHg 2016-12-27 MEDICATIONS Medication Instructions Dosage Frequency Start Date End Date Duration Status Insulin Syringe 31G X 5/16 as directed 6h Jun, Active Lantus 100 UNIT/ML 55 UNITS TWICE A DAY SUBCUTANEOUS 30 DAYS 36 Active Ipratropium [place] 0.02 % Inhalation every 8 hours, PRN 2.5 ml 30 days Active Lyrica 150 MG Orally 2 times a day 2 capsules 12h 90 days Active Omeprazole 40 mg Orally Once a day 1 capsule 24h 90 days Active Metformin HCl 1000 MG Orally 2 times a day 1 tablet with meals 12h 90 Active Gemfibrozil 600 MG Orally Twice a day 1 tablet 12h 90 Active Bactroban 2 % Externally to infected skin areas Three times a day 1 application to affected area 8h 14 Active Pravastatin Sodium 40 mg Orally Once a day 1 tablet 24h 90 Active Ranitidine HCl 150 MG Orally Once a day 2 tablets at bedtime 24h 90 Active Cyclobenzaprine HCl 10 MG Orally Three times a day 1 tablet 8h 90 days Active Ondansetron 8 MG Orally every 8 hours, PRN 1 tablet on the tongue and allow to dissolve 90 days Active Benzonatate 200 mg Orally Three times a day 1 capsule as needed 8h 18 Apr, 2016 Active Ibuprofen 600 MG TAKE 1 TABLET BY MOUTH FOUR TIMES DAILY NEEDED 30 Active Sucralfate 1 GM TAKE 1 TABLET BY MOUTH FOUR TIMES DAILY ON AN EMPTY STOMACH 30 Active Omeprazole 40 mg Orally Once a day 1 capsule 24h 90 Active Cetirizine HCl 10 mg Orally Once a day 1 tablet 24h 90 Active Test strips Test Strips Accu-check strips as directed 6h Jul, Active Symbicort 160-4.5 MCG/ACT Inhalation Twice a day 2 puffs 12h Active Furosemide 40 mg Orally Once a day 1 tablet 24h 12 Oct, 2016 30 day(s) Active NovoLog 100 UNIT/ML INJECT 30 UNITS SUBCUTANEOUSLY THREE TIMES DAILY 31 Active Lancets Ultra Fine - as directed May, Active Carafate 1 GM Orally 4 times a day 1 tablet on an empty stomach 6h 30 Active ProAir HFA 108 (90 Base) MCG/ACT Inhalation every 4 hrs 2 puffs as needed 4h 30 days Active Social DJTouch Ultra Test - TEST FOUR TIMES DAILY 25 Active TRUEplus Insulin Syringe 31G X 5/16 USE DIRECTED 4 TIMES A DAY 25 Active UltiCare Mini Pen Addis 31G X 6 MM USE DIRECTED 12 Active TRUEplus Insulin Syringe 31G X 5/16 USE DIRECTED 4 TIMES A DAY 25 Active Loperamide HCl 2 MG TAKE 2 CAPSULES BY MOUTH AFTER FIRST LOOSE STOOL THEN TAKE 1 CAPSULE AFTER EACH LOOSE STOOL - MAX 8 PER DAY 5 Active Montelukast Sodium 10 mg Orally Once a day 1 tablet in the evening 24h 90 Active RESULTS No Results PROCEDURES Procedure Date Ordered Result Body Site MEASURE BLOOD OXYGEN LEVEL Dec 27, 2016 No Charge Dec 27, 2016 INSTRUCTIONS MEDICATIONS ADMINISTERED No Known Medications [...] Surgical History bladder surgery Hospitalization History [facility] for right groin pain 05/2011 Hospitalization History [facility] for wound on buttocks 08/2012 Hospitalization History [facility], hypoxia secondary to pneumonia 12/02-12/09 Hospitalization History Pneumonia, elevated CO2 on Bipap was in ICU 08/2013 Hospitalization History Hypoxia, Exacerbation COPD, Chest pain 09/05/15 Hospitalization History suicidal ideations-[facility] 12/28 Hospitalization History hypoxia--VC 02/13/2016 Hospitalization History shortness of breath at june 2016 Hospitalization History Shortness of breath at august 2016 Hospitalization History SOB, chest pain at 12/2016
--- OUTSIDE RECORDS SUMMARY | 2017-11-24 18:13 | XMS REPORT ---
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 [place] [address]- 6540 Nov, [facility] [id number] [place] [address] 48043- 7428 Nov, [facility] [address] [place] [address] 86875- 8157 Nov, Episodic mood disorder 296.90 [facility] [id number] [place] [address] 63757- 1111 Nov, [facility] [address] [place] [address] 83518- 5573 Nov, [facility] [address] [place] [address] 60841- 6554 Nov, [facility] [address] [place] [address] 43690- 7696 Nov, [facility] [address] [place] [address] 25963- 4664 Nov, [facility] [address], [place] [address]- 6825 Nov, Lymphedema 457.1 ; Hyperlipidemia 272.4 ; Essential hypertension, benign 401.1 and Numbness of toes 782.0 [facility] [address], [place] [address]- 3591 Nov, Episodic mood disorder 296.90 [facility] [address], [place] [address]- 9357 Oct, [facility] [address], [place] [address]- 1580 Oct, [facility] [id number] [place] [address]- 9486 15 Oct, 2014 [facility] [address] [address] [facility] [id number] [place] [address]- 8189 15 Oct, 2014 [facility] [place] [facility] [address] [address] [facility] [id number] [place] [address]- 2119 14 Oct, 2014 [facility] [address] [facility] [id number] [place] [address]- 2715 Oct, 2014 [facility] [place] [facility] [address] [facility] [id number] [place] [address]- 6615 Oct, 2014 [facility] [address] [facility] [id number] [place] [address]- 5931 Oct, 2014 [facility] [place] [facility] [address] [facility] [id number] [place] [address]- 7155 Oct, Episodic mood disorder 296.90 [facility] [address] [id number] [place] [address]- 5492 Sep, [facility] [place] [facility] [address] [facility] [id number] [place] [address]- 8841 Sep, [facility] [place] [facility] [address] [id number] [place] [address]- 8862 Sep, [facility] [address] [id number] [place] [address]- 7864 Sep, [facility] [place] [facility] [address] [id number] [place] [address]- 8624 Sep, [facility] [place] [facility] [address] [facility] [id number] [place] [address]- 1961 Sep, Episodic mood disorder 296.90 [facility] [place] [facility] [address] [facility] [id number] [place] [address]- 1007 Sep, Unspecified episodic mood disorder 296.90 [facility] [place] [facility] [address] [id number] [place] [address]- 6154 Sep, [facility] [place] [facility] [address], [place] [address]- 5228 Sep, [facility] [address] [place] [address] 01694- 8287 Sep, Episodic mood disorder 296.90 [facility] [id number] [place] [address] 28448- 7258 Sep, [facility] [id number] [place] [address] 15364- 5801 Sep, [facility] [address] [place] [address] 44814- 8733 Sep, [facility] [id number] [place] [address] 78179- 9222 Sep, Hematemesis 578.0 and Vomiting 787.03 [facility] [id number] [place] [address] 59000- 2501 Sep, Episodic mood disorder 296.90 [facility] [id number] [place] [address] 99267- 2490 Sep, [facility] [id number] [place] [address] 00537- 7538 Sep, [facility] [address] [place] [address] 65461- 8156 Sep, Diabetes mellitus without mention of complication, type II or unspecified type, not stated as uncontrolled 250.00 and Other chronic pain 338.29 [facility] [address] [place] [address] 48296- 2329 05 Sep, 2014 Episodic mood disorder 296.90 [facility] [id number] [place] [address] 79087- 0800 Sep, [facility] [id number] [place] [address] 94440- 2058 Sep, Episodic mood disorder 296.90 [facility] [address] [place] [address] 63505- 5951 Sep, [facility] [address] [address] [facility] [id number] [place] [address]- 4967 August, [facility] [address] [facility] [id number] [place] [address]- 6976 August, [facility] [address] [facility] [id number] [place] [address]- 9764 August, Episodic mood disorder 296.90 [facility] [address] [facility] [id number] [place] [address]- 0602 August, [facility] [address] [id number] [place] [address]- 8575 August, Unspecified episodic mood disorder 296.90 [facility] [address] [id number] [place] [address]- 0566 August, Vomiting 787.03 [facility] [address] [place] [address]- 4866 August, [facility] [address] [id number] [place] [address]- 2660 August, [facility] [address] [place] [address]- 2623 August, [facility] [address] [id number] [place] [address]- 3646 August, [facility] [address] [place] [address] 2546 August, [facility] [address] [facility] [id number] [place] [address]- 5146 Jul, [facility] [address] [facility] [id number] [place] [address]- 4404 Jul, [facility] [address] [facility] [id number] [place] [address] 2546 Jul, [facility] [address] [id number] [place] [address]- 2396 Jun, [facility] [place] [facility] [address] [id number] [place] [address]- 4657 Jun, [facility] [place] [facility] [address] [id number] [place] [address]- 8018 Jun, [facility] [place] [facility] [address] [id number] [place] [address]- 5015 Jun, [facility] [place] [facility] [address] [id number] [place] [address]- 8613 Jun, [facility] [place] [facility] [address] [id number] [place] [address]- 7940 Jun, [facility] [place] [facility] [address] [id number] [place] [address]- 1802 Jun, [facility] [place] [facility] [address] [id number] [place] [address]- 8141 Jun, [facility] [place] [facility] [address] [id number] [place] [address]- 2652 Jun, [facility] [place] [facility] [address] [id number] [place] [address]- 3197 Jun, [facility] [place] [facility] [address] [id number] [place] [address]- 5377 Jun, [facility] [place] [facility] [address] [id number] [place] [address]- 3620 Jun, [facility] [place] [facility] [address] [id number] [place] [address]- 0864 Jun, [facility] [place] [facility] [address] [id number] [place] [address]- 0174 Jun, [facility] [place] [facility] [address] [id number] [place] [address]- 8889 Jun, [facility] [place] [facility] [address] [id number] [place] [address]- 5439 Jun, [facility] [place] [facility] [address] [id number] [place] [address]- 6562 23 Jun, 2014 [facility] [place] [facility] [address] [id number] [place] [address]- 9148 23 Jun, 2014 [facility] [place] [facility] [address] [id number] [place] [address]- 4674 23 Jun, 2014 [facility] [place] [facility] [address] [id number] [place] [address]- 1804 21 Jun, 2014 [facility] [place] [facility] [address] [id number] [place] [address]- 0369 21 Jun, 2014 [facility] [place] [facility] [address] [id number] [place] [address]- 5205 20 Jun, 2014 [facility] [place] [facility] [address] [id number] [place] [address]- 4501 20 Jun, 2014 [facility] [place] [facility] [address] [id number] [place] [address]- 1605 20 Jun, 2014 [facility] [place] [facility] [address] [id number] [place] [address]- 1113 20 Jun, 2014 [facility] [place] [facility] [address] [id number] [place] [address]- 0839 19 Jun, 2014 [facility] [place] [facility] [address] [id number] [place] [address]- 9654 19 Jun, 2014 [facility] [place] [facility] [address] [id number] [place] [address]- 9430 18 Jun, 2014 [facility] [place] [facility] [address] [id number] [place] [address]- 1399 18 Jun, 2014 [facility] [place] [facility] [address] [id number] [place] [address]- 7568 17 Jun, 2014 [facility] [place] [facility] [address] [id number] [place] [address]- 5807 17 Jun, 2014 [facility] [place] [facility] [address] [id number] [place] [address]- 0816 16 Jun, 2014 [facility] [place] [facility] [address] [id number] [place] [address] 2546 16 Jun, 2014 [facility] [place] [facility] [address] [id number] [place] [address]- 8610 16 Jun, 2014 [facility] [place] [facility] [address] [id number] [place] [address]- 9436 16 Jun, 2014 [facility] [place] [facility] [address] [id number] [place] [address]- 0985 16 Jun, 2014 [facility] [place] [facility] [address] [id number] [place] [address]- 1586 16 Jun, 2014 [facility] [place] [facility] [address] [id number] [place] [address]- 7715 13 Jun, 2014 [facility] [place] [facility] [address] [id number] [place] [address] 13 Jun, 2014 [facility] [place] [facility] [address] [id number] [place] [address] Jun, 2014 [facility] [place] [facility] [address] [id number] [place] [address] Jun, [facility] [place] [facility] [address] [id number] [place] [address] Jun, 2014 [facility] [place] [facility] [address] [id number] [place] [address] Jun, 2014 [facility] [place] [facility] [address] [id number] [place] [address] Jun, 2014 [facility] [place] [facility] [address] [id number] [place] [address] Jun, 2014 [facility] [place] [facility] [address] [id number] [place] [address] Jun, 2014 [facility] [place] [facility] [address] [id number] [place] [address]- [address] Jun, 2014 [facility] [place] [facility] [address] [id number] [place] [address]- [address] Jun, [facility] [place] [facility] [address] [id number] [place] [address] Jun, [facility] [place] [facility] [address] [id number] [place] [address] Jun, [facility] [place] [facility] [address] [id number] [place] [address] Jun, [facility] [place] [facility] [address] [id number] [place] [address] Jun, [facility] [place] [facility] [address] [id number] [place] [address] Jun, [facility] [place] [facility] [address] [id number] [place] [address] Jun, [facility] [place] [facility] [address] [id number] [place] [address]- [address] Jun, [facility] [place] [facility] [address] [id number] [place] [address] Jun, [facility] [place] [facility] [address] [id number] [place] [address]- [address] Jun, [facility] [place] [facility] [address] [id number] [place] [address]- [address] May, [facility] [place] [facility] [address] [id number] [place] [address] May, 2014 [facility] [place] [facility] [address] [id number] [address] May, [facility] [place] [facility] [address] [id number] [place] [address] May, [facility] [place] [facility] [address] [id number] [place] [address] May, [facility] [place] [facility] [address] [id number] [place] [address] May, [facility] [place] [facility] [address] [id number] [place] [address] 2542 20 May, 2014 [facility] [place] [facility] [address] [id number] [place] [address] 2546 May, 2014 [facility] [place] [facility] [address] [id number] [place] [address]46 20 May, 2014 [facility] [place] [facility] [address] [facility] [id number] [place] [address] 2546 20 May, 2014 [facility] [place] [facility] [address] [id number] [place] [address]- 254 18 May, 2014 [facility] [place] [facility] [address] [facility] [id number] [place] [address] 2546 18 May, 2014 [facility] [place] [facility] [address] [facility] [id number] [place] [address] 8747 13 May, 2014 [facility] [place] [facility] [address] [facility] [id number] [place] [address]- 2549 13 May, 2014 [facility] [place] [facility] [address] [facility] [id number] [place] [address]- 3555 11 May, 2014 [facility] [place] [facility] [address] [facility] [id number] [place] [address]- 8531 May, 2014 [facility] [place] [facility] [address] [facility] [id number] [place] [address]- 6607 May, 2014 [facility] [place] [facility] [address] [facility] [id number] [address] 2549 May, 2014 [facility] [place] [facility] [address] [facility] [id number] [place] [address]- 2546 09 May, 2014 [facility] [place] [facility] [address] [facility] [id number] [place] [address]- 2546 May, 2014 [facility] [place] [facility] [address] [facility] [id number] [place] [address]- 2546 05 May, 2014 [facility] [place] [facility] [address] [facility] [id number] [place] [address]- 9089 May, 2014 [facility] [place] [facility] [address] [id number] [place] [address]- 7822 May, [facility] [place] [facility] [address] [id number] [place] [address] May, 2014 [facility] [place] [facility] [address] [id number] [place] [address]- 8937 May, 2014 [facility] [place] [facility] [address] [id number] [place] [address]- 6090 May, 2014 [facility] [place] [facility] [address] [id number] [place] [address]- 8598 May, [facility] [place] [facility] [address] [id number] [place] [address]- 7016 Apr, [facility] [place] [facility] [address] [id number] [place] [address]- 6070 Apr, [facility] [place] [facility] [address] [id number] [place] [address]- 2482 Apr, [facility] [place] [facility] [address] [id number] [place] [address]- 2211 Apr, [facility] [place] [facility] [address] [id number] [place] [address]- 0344 Apr, [facility] [place] [facility] [address] [id number] [place] [address]- 7953 Apr, [facility] [place] [facility] [address] [id number] [place] [address]- 4900 Apr, [facility] [place] [facility] [address] [id number] [place] [address]- 6522 Apr, [facility] [place] [facility] [address] [id number] [place] [address]- 3172 Apr, [facility] [place] [facility] [address] [id number] [place] [address]- 9381 Apr, [facility] [place] [facility] [address] [id number] [place] [address]- 8283 Apr, [facility] [place] [facility] [address] [id number] [place] [address]- 0719 Apr, [facility] [place] [facility] [address] [id number] [place] [address]- 1748 Apr, [facility] [place] [facility] [address] [id number] [place] [address]- 7723 Apr, [facility] [place] [facility] [address] [id number] [place] [address]- 9982 Apr, [facility] [place] [facility] [address] [id number] [place] [address]- 1485 Apr, [facility] [place] [facility] [address] [id number] [place] [address]- 5940 Apr, [facility] [place] [facility] [address] [id number] [place] [address]- 8575 Apr, [facility] [place] [facility] [address] [id number] [place] [address]- 5597 Apr, [facility] [place] [facility] [address] [id number], [place] [address]- 1874 Apr, [facility] [place] [facility] [address] [id number], [place] [address]- 4309 Mar, [facility] [place] [facility] [address] [id number], [place] [address]- 6[address] Mar, [facility] [place] [facility] [address] [id number] [place] [address]- 7739 Mar, [facility] [place] [facility] [address] [id number] [place] [address]- 6946 Mar, [facility] [place] [facility] [address] [id number] [place] [address]- 3888 Mar, [facility] [place] [facility] [address] [id number], [place] [address]- 0510 23 Mar, 2014 [facility] [place] [facility] [address] [id number] [place] [address]- 3734 18 Mar, 2014 [facility] [place] [facility] [address] [id number] [place] [address]- 8747 18 Mar, 2014 [facility] [place] [facility] [address] [facility] [id number] [place] [address]- 2856 15 Mar, 2014 [facility] [place] [facility] [address] [id number] [place] [address]- 3896 15 Mar, 2014 [facility] [place] [facility] [address] [id number] [place] [address]- 1271 15 Mar, 2014 [facility] [place] [facility] [address] [id number] [place] [address]- 9961 Mar, [facility] [place] [facility] [address] [facility] [id number] [place] [address]- 9754 Mar, [facility] [place] [facility] [address] [id number] [place] [address]- 9673 Mar, [facility] [place] [facility] [address] [facility] [id number] [place] [address]- 4035 Mar, [facility] [place] [facility] [address] [facility] [id number] [place] [address]- 6919 Mar, [facility] [place] [facility] [address] [id number] [place] [address]- 8617 Feb, [facility] [place] [facility] [address] [id number], [place] [address]- [address] Feb, [facility] [place] [facility] [address] [id number] [place] [address]- 3275 Feb, [facility] [place] [facility] [address] [id number] [place] [address]- 6866 Feb, [facility] [place] [facility] [address] [facility] [id number] [place] [address]- 3607 Feb, [facility] [place] [facility] [address] [id number] [place] [address]- 8451 19 Feb, 2014 [facility] [place] [facility] [address] [id number] [place] [address]- 3781 19 Feb, 2014 [facility] [place] [facility] [address] [id number] [place] [address]- 3740 18 Feb, 2014 [facility] [place] [facility] [address] [id number] [place] [address]- 8171 18 Feb, 2014 [facility] [place] [facility] [address] [id number] [place] [address]- 7556 17 Feb, 2014 [facility] [place] [facility] [address] [id number] [place] [address]- 4859 17 Feb, 2014 [facility] [place] [facility] [address] [id number] [place] [address]- 6962 17 Feb, 2014 [facility] [place] [facility] [address] [id number] [place] [address]- 6266 17 Feb, 2014 [facility] [place] [facility] [address] [id number] [place] [address]- 0445 14 Feb, 2014 [facility] [place] [facility] [address] [id number] [place] [address]- 4651 14 Feb, 2014 [facility] [place] [facility] [address] [id number] [place] [address]- 8181 14 Feb, 2014 [facility] [place] [facility] [address] [id number] [place] [address]- 5388 14 Feb, 2014 [facility] [place] [facility] [address] [id number] [place] [address]- 8043 10 Feb, 2014 [facility] [place] [facility] [address] [id number] [place] [address]- 5194 10 Feb, 2014 [facility] [place] [facility] [address] [id number] [place] [address]- 8042 04 Feb, 2014 [facility] [place] [facility] [address] [id number] [place] [address]- 8578 Feb, [facility] [place] [facility] [address] [id number] [place] [address]- 2649 Jan, [facility] [place] [facility] [address] [id number] [place] [address]- 7325 Jan, [facility] [place] [facility] [address] [id number] [place] [address]- 8903 Jan, [facility] [place] [facility] [address] [id number] [place] [address]- 1754 Jan, [facility] [place] [facility] [address] [id number] [place] [address]- 0804 Jan, [facility] [place] [facility] [address] [id number] [place] [address]- 3688 Jan, [facility] [place] [facility] [address] [id number] [place] [address]- 1791 Jan, [facility] [place] [facility] [address] [id number] [place] [address]- 2824 Jan, [facility] [place] [facility] [address] [id number] [place] [address]- 7462 Jan, [facility] [place] [facility] [address] [id number] [place] [address]- 5306 Jan, [facility] [place] [facility] [address] [id number], [place] [address]- 0716 Jan, [facility] [place] [facility] [address] [id number], [place] [address]- 9250 Jan, [facility] [place] [facility] [address] [id number] [place] [address]- 1010 Jan, [facility] [place] [facility] [address] [id number], [place] [address]- 5359 Jan, [facility] [place] [facility] [address] [id number], [place] [address]- 6717 15 Jan, 2014 [facility] [place] [facility] [address] [id number] [place] [address]- 8712 15 Jan, 2014 [facility] [place] [facility] [address] [id number] [place] [address]- 3030 14 Jan, 2014 [facility] [place] [facility] [address] [id number] [place] [address]- 2799 14 Jan, 2014 [facility] [place] [facility] [address] [id number] [place] [address]- 8425 13 Jan, 2014 [facility] [place] [facility] [address] [id number] [place] [address]- 3556 13 Jan, 2014 [facility] [place] [facility] [address] [id number] [place] [address]- 1920 Jan, [facility] [place] [facility] [address] [id number] [place] [address]- 7665 13 Jan, 2014 [facility] [place] [facility] [address] [id number] [place] [address]- 7128 10 Jan, 2014 [facility] [place] [facility] [address] [id number] [place] [address]- 5683 02 Jan, 2014 [facility] [place] [facility] [address] [id number] [place] [address]- 5626 02 Jan, 2014 [facility] [place] [facility] [address] [id number] [place] [address]- 7729 25 Dec, 2013 [facility] [place] [facility] [address] [id number] [place] [address]- 0817 25 Dec, 2013 [facility] [place] [facility] [address] [id number] [place] [address]- 2549 23 Dec, 2013 [facility] [place] [facility] [address] [id number] [place] [address] 2544 23 Dec, 2013 [facility] [place] [facility] [address] [id number] [place] [address]- 2542 19 Dec, 2013 [facility] [place] [facility] [address] [id number] [place] [address]- 2543 Dec, 2013 [facility] [place] [facility] [address] [id number] [place] [address]- 4056 Dec, 2013 [facility] [place] [facility] [address] [id number] [place] [address]- 0170 Dec, 2013 [facility] [place] [facility] [address] [id number] [place] [address]- 0929 Dec, 2013 [facility] [place] [facility] [address] [id number] [place] [address]- 9419 Dec, 2013 [facility] [place] [facility] [address] [id number] [place] [address]- 1920 Dec, 2013 [facility] [place] [facility] [address] [id number] [place] [address]- 4352 Dec, 2013 [facility] [place] [facility] [address] [id number] [place] [address]- 0651 Dec, 2013 [facility] [place] [facility] [address] [id number] [place] [address]- 7707 Dec, 2013 [facility] [place] [facility] [address] [id number] [place] [address]- 7319 Dec, 2013 [facility] [place] [facility] [address] [id number] [place] [address]- 9555 Dec, 2013 [facility] [place] [facility] [address] [id number] [place] [address]- 6997 Dec, 2013 [facility] [place] [facility] [address] [id number] [place] [address]- 2541 Dec, 2013 [facility] [place] [facility] [address] [id number] [place] [address]- 0293 Nov, [facility] [place] [facility] [address] [id number] [place] [address]- 9860 Nov, [facility] [place] [facility] [address] [id number] [place] [address]- 9900 Nov, [facility] [place] [facility] [address] [id number] [place] [address]- 5515 Nov, [facility] [place] [facility] [address] [id number] [address]- 1301 Nov, [facility] [place] [facility] [address] [id number] [place] [address]- 7072 Nov, [facility] [place] [facility] [address] [id number] [place] [address]- 8943 Nov, [facility] [place] [facility] [address] [id number] [place] [address]- 4232 Nov, [facility] [place] [facility] [address] [id number] [place] [address]- 5576 Nov, [facility] [place] [facility] [address] [id number] [place] [address]- 6035 Nov, [facility] [place] [facility] [address] [id number] [place] [address]- 1594 Nov, [facility] [place] [facility] [address] [id number] [place] [address]- 0475 Nov, [facility] [place] [facility] [address] [id number] [place] [address]- 0187 Oct, [facility] [place] [facility] [address] [id number] [place] [address]- 2180 Oct, [facility] [place] [facility] [address] [id number] [place] [address]- 0302 Oct, [facility] [place] [facility] [address] [id number] [place] [address]- 3300 Oct, [facility] [place] [facility] [address] [id number] [place] [address]- 0219 Oct, [facility] [place] [facility] [address] [id number] [place] [address]- 2363 Oct, [facility] [place] [facility] [address] [id number] [place] [address]- 9887 Oct, [facility] [place] [facility] [address] [id number] [place] [address]- 4725 23 Oct, 2013 [facility] [place] [facility] [address] [id number] [place] [address]- 5645 Oct, [facility] [place] [facility] [address] [id number] [place] [address]- 3469 22 Oct, 2013 [facility] [place] [facility] [address] [id number] [place] [address]- 6635 16 Oct, 2013 [facility] [place] [facility] [address] [id number] [place] [address]- 8902 16 Oct, 2013 [facility] [place] [facility] [address] [id number] [place] [address]- 4502 14 Oct, 2013 [facility] [place] [facility] [address] [id number] [place] [address]- 8939 14 Oct, 2013 [facility] [place] [facility] [address] [id number] [place] [address]- 2465 Oct, [facility] [place] [facility] [address] [id number] [place] [address]- 7199 Oct, [facility] [place] [facility] [address] [id number] [place] [address]- 1677 Oct, [facility] [place] [facility] [address] [id number] [place] [address]- 3310 Sep, [facility] [place] [facility] [address] [id number] [place] [address]- 0219 Sep, [facility] [place] [facility] [address] [id number] [place] [address]- 6905 Sep, [facility] [place] [facility] [address] [id number] [place] [address]- 5198 Sep, [facility] [place] [facility] [address] [id number] [place] [address]- 2629 18 Sep, 2013 [facility] [place] [facility] [address] [id number] [place] [address]- 0597 18 Sep, 2013 [facility] [place] [facility] [address] [id number] [place] [address]- 3579 Sep, [facility] [place] [facility] [address] [id number] [place] [address]- 8914 Sep, [facility] [place] [facility] [address] [id number] [place] [address]- 4490 Sep, [facility] [place] [facility] [address] [id number] [place] [address]- 2321 Sep, [facility] [place] [facility] [address] [id number] [place] [address]- 7242 Sep, [facility] [place] [facility] [address] [id number] [place] [address]- 7686 Sep, [facility] [place] [facility] [address] [id number] [place] [address]- 4827 Sep, [facility] [place] [facility] [address] [id number] [place] [address]- 3265 Sep, [facility] [place] [facility] [address] [id number] [place] [address]- 6759 Sep, [facility] [place] [facility] [address] [id number], [place] [address]- 4806 Sep, [facility] [place] [facility] [address] [id number], [place] [address]- 4461 Sep, [facility] [place] [facility] [address] [id number], [place] [address]- 4122 Sep, [facility] [place] [facility] [address] [id number] [place] [address]- 3217 Sep, [facility] [place] [facility] [address] [id number] [place] [address]- 9168 Sep, [facility] [place] [facility] [address] [id number], [place] [address]- 8645 03 Sep, 2013 [facility] [place] [facility] [address] [id number], [place] [address]- 5877 Sep, [facility] [address] [id number] [place] [address]- 1308 August, [facility] [place] [facility] [address] [id number] [place] [address]- 8901 August, [facility] [address] [id number] [place] [address]- 4656 August, [facility] [place] [facility] [address] [id number] [place] [address]- 5573 August, [facility] [address] [id number] [place] [address]- 0118 August, [facility] [place] [facility] [address] [id number] [place] [address]- 9239 August, [facility] [address] [id number] [place] [address]- 0508 August, [facility] [place] [facility] [address] [id number] [place] [address]- 9967 August, [facility] [address] [id number] [place] [address]- 5392 August, [facility] [place] [facility] [address] [id number] [place] [address]- 4783 August, [facility] [place] [facility] [address] [id number] [place] [address]- 8299 August, [facility] [place] [facility] [address] [id number] [place] [address]- 6237 Jul, [facility] [place] [facility] [address] [id number] [place] [address]- 4622 Jul, [facility] [place] [facility] [address] [id number] [place] [address]- 5682 Jul, [facility] [place] [facility] [address] [id number] [place] [address]- 4731 Jul, [facility] [place] [facility] [address] [id number] [place] [address]- 2688 23 Jul, 2013 [facility] [place] [facility] [address] [id number] [place] [address]- 4387 23 Jul, 2013 [facility] [place] [facility] [address] [id number] [place] [address]- 4691 Jul, [facility] [place] [facility] [address] [id number] [place] [address]- 0242 Jul, [facility] [place] [facility] [address] [id number] [place] [address]- 3624 18 Jul, 2013 [facility] [place] [facility] [address] [id number] [place] [address] 18 Jul, 2013 [facility] [place] [facility] [address] [id number] [place] [address] 16 Jul, 2013 [facility] [place] [facility] [address] [id number] [place] [address] 14 Jul, 2013 [facility] [place] [facility] [address] [id number] [place] [address] 14 Jul, 2013 [facility] [place] [facility] [address] [id number] [place] [address] 11 Jul, 2013 [facility] [place] [facility] [address] [id number] [place] [address] 11 Jul, 2013 [facility] [place] [facility] [address] [id number] [place] [address] 1339 10 Jul, 2013 [facility] [place] [facility] [address] [id number] [place] [address]290 10 Jul, 2013 [facility] [place] [facility] [address] [id number] [place] [address] 6079 05 Jul, 2013 [facility] [place] [facility] [address] [id number] [place] [address] 9687 05 Jul, 2013 [facility] [place] [facility] [address] [id number] [place] [address] Jul, [facility] [place] [facility] [address] [id number] [place] [address] Jul, [facility] [place] [facility] [address] [id number] [place] [address] Jul, [facility] [place] [facility] [address] [id number] [place] [address] Jul, [facility] [place] [facility] [address] [id number] [place] [address] 2002 Jun, [facility] [place] [facility] [address] [id number] [place] [address] Jun, [facility] [place] [facility] [address] [id number] [place] [address] Jun, [facility] [place] [facility] [address] [id number] [place] [address] 98[address] Jun, [facility] [place] [facility] [address] [id number] [place] [address]- [address] Jun, [facility] [place] [facility] [address] [id number] [place] [address] Jun, [facility] [place] [facility] [address] [id number] [place] [address] 8446 Jun, [facility] [place] [facility] [address] [id number] [place] [address] Jun, [facility] [place] [facility] [address] [id number] [place] [address] Jun, [facility] [place] [facility] [address] [id number] [place] [address] 3030 Jun, [facility] [place] [facility] [address] [id number] [place] [address] 9445 Jun, [facility] [place] [facility] [address] [id number] [place] [address] 9[address] Jun, [facility] [place] [facility] [address] [id number] [place] [address] May, [facility] [address] [id number] [place] [address] May, [facility] [address] [id number] [place] [address] Apr, [facility] [address] [id number] [place] [address] Apr, [facility] [address] [id number] [place] [address] Apr, [facility] [address] [id number] [place] [address]777 Apr, [facility] [address] [id number] [place] [address] Apr, [facility] [address] [id number] [place] [address] 48[address] Apr, [facility] [address] [id number] [place] [address] 9[address] Apr, [facility] [address] [id number] [place] [address] Apr, [facility] [address] [id number] [place] [address] 27[address] Apr, [facility] [address] [id number] [place] [address] Apr, [facility] [address] [id number] [place] [address] 23[address] Apr, [facility] [address] [id number] [place] [address] Mar, [facility] [place] [facility] [address] [id number] [place] [address] Mar, [facility] [address] [id number] [place] [address] 1051 Mar, [facility] [place] [facility] [address] [id number] [place] [address] 6415 16 Mar, 2013 [facility] [place] [facility] [address] [id number] [place] [address] 69[address] Feb, [facility] [place] [facility] [address] [id number] [place] [address] 8024 Feb, [facility] [place] [facility] [address] [id number] [place] [address] 6[address] Feb, [facility] [place] [facility] [address] [id number] [place] [address]- 4[address] Feb, [facility] [place] [facility] [address] [id number] [place] [address]- [address] Feb, [facility] [place] [facility] [address] [id number] [place] [address]- 70[address] Feb, [facility] [place] [facility] [address] [id number], [place] [address] Feb, [facility] [place] [facility] [address] [id number], [place] [address] Feb, [facility] [place] [facility] [address] [id number], [place] [address] 8[address] Feb, [facility] [place] [facility] [address] [id number], [place] [address] Feb, [facility] [place] [facility] [address] [id number], [place] [address] 112[address] Feb, [facility] [place] [facility] [address] [id number], [place] [address] Jan, [facility] [place] [facility] [address] [id number], [place] [address]- [address] Jan, [facility] [place] [facility] [address] [id number] [address] Jan, [facility] [place] [facility] [address] [id number], [place] [address] 11 Jan, 2013 [facility] [place] [facility] [address] [id number] [place] [address] 2999 10 Jan, 2013 [facility] [place] [facility] [address] [id number] [place] [address]- 3568 10 Jan, 2013 [facility] [place] [facility] [address] [id number] [place] [address]- 9526 03 Jan, 2013 [facility] [place] [facility] [address] [id number] [place] [address] 3574 02 Jan, 2013 [facility] [place] [facility] [address] [id number] [place] [address]- 4722 30 Dec, 2012 [facility] [place] [facility] [address] [id number] [place] [address]- 3106 25 Dec, 2012 [facility] [place] [facility] [address] [id number] [place] [address]- 9108 18 Dec, 2012 [facility] [place] [facility] [address] [id number] [place] [address] 17 Dec, 2012 [facility] [place] [facility] [address] [id number] [place] [address] 17 Dec, 2012 [facility] [place] [facility] [address] [id number] [place] [address] 9844 16 Dec, 2012 [facility] [place] [facility] [address] [id number], [place] [address] 13 Dec, 2012 [facility] [place] [facility] [address] [id number], [place] [address] 1065 11 Dec, 2012 [facility] [place] [facility] [address] [id number] [place] [address] 9[address] 05 Sep, 2012 [facility] [place] [facility] [address] [id number] [place] [address] 9514 04 Dec, 2012 [facility] [place] [facility] [address] [id number] [place] [address] 8132 30 Nov, 2012 [facility] [place] [facility] [address] [id number] [place] [address] 4277 29 Nov, 2012 [facility] [place] [facility] [address] [id number] [place] [address] 2870 Nov, [facility] [place] [facility] [address] [id number] [place] [address] 0216 16 Nov, 2012 [facility] [place] [facility] [address] [id number] [place] [address] 6635 14 Nov, 2012 [facility] [place] [facility] [address] [id number] [place] [address] 2143 Nov, [facility] [place] [facility] [address] [id number] [place] [address] 75[address] Nov, [facility] [place] [facility] [address] [id number] [place] [address] 8707 Oct, [facility] [place] [facility] [address] [id number] [place] [address] 459[address] Oct, [facility] [place] [facility] [address] [id number] [place] [address] 8949 Oct, [facility] [place] [facility] [address] [id number] [place] [address] 0744 Oct, [facility] [place] [facility] [address] [id number] [place] [address] 9242 15 Oct, 2012 [facility] [place] [facility] [address] [id number] [place] [address] 9979 Oct, [facility] [place] [facility] [address] [id number] [place] [address] 65[address] Sep, [facility] [place] [facility] [address] [id number] [place] [address] 3791 Sep, [facility] [place] [facility] [address] [id number] [place] [address] 2409 Sep, [facility] [place] [facility] [address] [id number] [place] [address] 4074 14 Sep, 2012 [facility] [address] [id number] [place] [address] 5374 13 Sep, 2012 [facility] [address] [id number] [place] [address]- 1370 10 Sep, 2012 [facility] [address] [id number] [place] [address]- 5954 07 Sep, 2012 [facility] [address] [id number] [place] [address] 0428 Sep, [facility] [address] [id number] [place] [address] 0570 Sep, [facility] [address] [id number] [place] [address] 6972 August, [facility] [address] [id number] [place] [address]- 2452 August, [facility] [address] [id number] [place] [address] 9890 August, [facility] [address] [id number] [place] [address] 4944 August, [facility] [address] [id number] [place] [address] 8719 August, [facility] [address] [id number] [place] [address] 3062 August, [facility] [address] [id number] [place] [address] 4408 August, [facility] [address] [id number] [place] [address] 8220 August, [facility] [address] [id number] [place] [address] 9425 Jul, [facility] [address] [id number] [place] [address] Jul, [address] [id number] Jul [facility] [address] [id number] [place] [address] 9187 Jun, [facility] [address] [id number] [place] [address] 3926 Jun, [facility] [address] [facility] [address] [facility] [id number] [place] [address]- 1852 Jun, [facility] [address] [id number] [place] [address] 4803 Jun, [facility] [address] [id number] [place] [address]- 6328 Jun, [facility] [address] [address] [facility] [id number] [place] [address]- 1857 Jun, [facility] [address] [id number] [place] [address] 9590 May, [facility] [address] [id number] [place] [address] 9809 May, [facility] [address] [id number] [place] [address]- 9541 May, [facility] [address] [address] [facility] [id number] [place] [address]- 2858 May, [facility] [address] [id number], [place] [address] 8431 May, [facility] [place] [facility] [address] [id number], [place] [address] 2541 Apr, [facility] [place] [facility] [address] [id number] [place] [address] 7989 Apr, [facility] [place] [facility] [address] [id number] [place] [address]- 5157 Apr, [facility] [place] [facility] [address] [address] [facility] [id number] [place] [address] 2546 Apr, [facility] [place] [facility] [address] [id number] [place] [address]- 2926 Apr, [facility] [address] [id number] [place] [address]- 5689 Apr, [facility] [place] [facility] [address] [id number] [place] [address]- 0556 Mar, [facility] [place] [facility] [address] [id number] [place] [address]- 0866 Mar, [facility] [place] [facility] [address] [id number] [place] [address]- 9946 Mar, [facility] [place] [facility] [address] [id number] [place] [address]- 7381 Mar, [facility] [place] [facility] [address] [id number] [place] [address] 7259 Mar, [facility] [place] [facility] [address] [id number] [place] [address]- 0683 Mar, [facility] [place] [facility] [address] [id number] [place] [address]- 4307 Mar, [facility] [place] [facility] [address] [id number] [place] [address]- 8597 Mar, [facility] [place] [facility] [address] [id number] [place] [address] Mar, [facility] [place] [facility] [address] [id number] [place] [address]- 6928 Mar, [facility] [place] [facility] [address] [id number] [place] [address]- 5466 Mar, [facility] [place] [facility] [address] [id number] [place] [address]- 2976 Feb, [facility] [place] [facility] [address] [id number] [place] [address]- 4796 Feb, [facility] [place] [facility] [address] [id number] [place] [address]- 7582 Feb, [facility] [place] [facility] [address] [id number] [place] [address]- 7152 Feb, [facility] [place] [facility] [address] [id number] [place] [address]- 7411 Feb, [facility] [place] [facility] [address] [id number] [place] [address]- 2101 Feb, [facility] [place] [facility] [address] [id number] [place] [address]- 4792 Feb, [facility] [place] [facility] [address] [id number] [place] [address]- 7042 Feb, [facility] [place] [facility] [address] [id number] [place] [address]- 8223 Feb, [facility] [place] [facility] [address] [address] [facility] [id number] [place] [address]- 7882 Feb, [facility] [place] [facility] [address] [id number], [place] [address]- 3936 Feb, [facility] [place] [facility] [address] [id number] [place] [address]- 0970 Jan, [facility] [place] [facility] [address] [id number], [place] [address]- 7174 Jan, [facility] [place] [facility] [address] [id number], [place] [address]- 2516 Jan, [facility] [place] [facility] [address] [id number], [place] [address]- 0296 Jan, [facility] [place] [facility] [address] [id number], [place] [address]- 5889 Jan, [facility] [place] [facility] [address] [id number], [place] [address]- [address] Jan, [facility] [place] [facility] [address] [address] [facility] [id number], [place] [address]- 9567 Jan, [facility] [place] [facility] [address] [id number] [place] [address]- 3289 24 Dec, 2011 [facility] [place] [facility] [address] [id number] [place] [address]- 3726 17 Dec, 2011 [facility] [place] [facility] [address] [id number] [place] [address]- 2126 13 Dec, 2011 [facility] [place] [facility] [address] [id number] [place] [address]- 3276 12 Dec, 2011 [facility] [place] [facility] [address] [id number] [place] [address]- 2351 23 Nov, 2011 [facility] [place] [facility] [address] [id number] [place] [address]- 9513 20 Nov, 2011 [facility] [place] [facility] [address] [id number] [place] [address]- 4805 17 Nov, 2011 [facility] [place] [facility] [address] [id number] [place] [address]- 6754 15 Nov, 2011 [facility] [place] [facility] [address] [id number] [place] [address]- 8834 14 Nov, 2011 [facility] [place] [facility] [address] [id number] [place] [address]- 0333 13 Nov, 2011 [facility] [place] [facility] [address] [id number] [place] [address]- 0740 Nov, [facility] [place] [facility] [address] [id number] [place] [address]- 5881 Nov, [facility] [place] [facility] [address] [id number] [place] [address]- 2541 Nov, [facility] [place] [facility] [address] [id number] [place] [address]- 5941 Nov, [facility] [place] [facility] [address] [id number] [place] [address]- 8368 Nov, [facility] [place] [facility] [address] [id number] [place] [address]- 5509 Nov, [facility] [place] [facility] [address] [id number] [place] [address]- 4976 Nov, [facility] [place] [facility] [address] [id number] [place] [address]- 4084 Oct, [facility] [place] [facility] [address] [id number] [place] [address]- 0463 Oct, [facility] [place] [facility] [address] [id number] [place] [address]- 6279 Oct, [facility] [place] [facility] [address] [id number] [place] [address]- 7333 Oct, [facility] [place] [facility] [address] [id number] [place] [address]- 1839 Oct, [facility] [place] [facility] [address] [id number] [place] [address]- 8735 Oct, [facility] [place] [facility] [address] [id number] [place] [address]- 3274 Oct, [facility] [place] [facility] [address] [id number] [place] [address]- 9856 Oct, [facility] [place] [facility] [address] [id number] [place] [address]- 2247 Oct, [facility] [place] [facility] [address] [id number] [place] [address]- 6465 Sep, [facility] [place] [facility] [address] [id number] [place] [address]- 5813 Sep, [facility] [place] [facility] [address] [id number] [place] [address]- 2756 Sep, [facility] [place] [facility] [address] [id number] [place] [address]- 4025 Sep, [facility] [place] [facility] [address] [id number] [place] [address]- 5742 Sep, [facility] [place] [facility] [address] [id number], [place] [address]- 2336 Sep, [facility] [address] [address] [facility] [id number] [place] [address]- 6888 Sep, [facility] [address] [facility] [id number] [place] [address]- 4506 Sep, [facility] [address] [facility] [id number] [place] [address]- 2201 August, [facility] [address] [id number] [place] [address]- 4082 August, [facility] [address] [facility] [id number] [place] [address]- 3974 August, [facility] [address] [facility] [id number] [place] [address]- 4389 August, [facility] [address] [facility] [id number] [place] [address]- 1719 August, [facility] [address] [facility] [id number] [place] [address]- 8844 August, [facility] [address] [facility] [id number]- 3214 August, [facility] [address] [facility] [id number] [place] [address]- 8243 August, [facility] [address] [facility] [id number], [place] [address]- 0760 August, [facility] [address] [facility] [id number], [place] [address]- 8726 August, [facility] [address] [facility] [id number], [place] [address]- 8653 August, [facility] [address] [facility] [id number], [place] [address]- 3906 August, [facility] [address] [facility] [id number], [place] [address]- 1403 Oct, IMMUNIZATIONS No Known Immunizations SOCIAL HISTORY [...] Surgical History bladder surgery Hospitalization History [facility] for right groin pain 05/2011 Hospitalization History Via [facility] for wound on buttocks 08/2012 Hospitalization History Via [facility], hypoxia secondary to pneumonia 12/02-12/09 Hospitalization History Pneumonia, elevated CO2 on Bipap was in ICU 08/2013 Hospitalization History Hypoxia, Exacerbation COPD, Chest pain 09/05/15 Hospitalization History suicidal ideations-[facility] 12/28 Hospitalization History hypoxia--[facility] 02/13/2016 Hospitalization History shortness of breath at june 2016 Hospitalization History Shortness of breath at august 2016 Hospitalization History SOB, chest pain at 12/2016
--- OUTSIDE RECORDS SUMMARY | 2017-11-24 18:14 | XMS REPORT ---
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 Sep, [facility] [address], [place] [address]- 8011 05 Sep, 2014 Diabetes mellitus without mention of complication, type II or unspecified type, not stated as uncontrolled 250.00 and Other chronic pain 338.29 [facility] [address] [facility] [id number] [address]- 4725 Sep, Episodic mood disorder 296.90 [facility] [address], [place] [address]- 3811 Sep, [facility] [address], [place] [address]- 6763 Sep, Episodic mood disorder 296.90 [facility] [address], [place] [address]- 8722 Sep, [facility] [id number] [place] [address] 39829- 5495 August, [facility] [address], [place] [address]- 9848 August, [facility] [address] [place] [address] 62797- 3564 August, Episodic mood disorder 296.90 [facility] [address], [place] [address]- 9911 August, [facility] [id number] [place] [address] 94644- 7024 August, Unspecified episodic mood disorder 296.90 [facility] [address], [place] [address]- 0565 August, Vomiting 787.03 [facility] [address], [place] [address]- 4837 August, [facility] [address], [place] [address]- 6804 August, [facility] [address], [place] [address]- 4119 August, [facility] [address], [place] [address]- 4979 August, [facility] [address], [place] [address]- 2546 August, [facility] [place] [facility] [address] [id number] [place] [address]- 9516 28 Jul, 2014 [facility] [place] [facility] [address] [id number] [place] [address]- 4996 Jul, [facility] [place] [facility] [address] [id number] [place] [address]- 9574 Jul, [facility] [place] [facility] [address] [id number] [place] [address]- 2515 30 Jun, 2014 [facility] [place] [facility] [address] [id number] [place] [address]- 6677 Jun, [facility] [place] [facility] [address] [id number] [place] [address]- 3979 Jun, [facility] [place] [facility] [address] [id number] [place] [address]- 9776 Jun, [facility] [place] [facility] [address] [id number] [place] [address]- 2416 Jun, [facility] [place] [facility] [address] [id number] [place] [address]- 4711 Jun, [facility] [place] [facility] [address] [id number] [place] [address]- 2760 Jun, [facility] [place] [facility] [address] [id number] [place] [address]- 3504 Jun, [facility] [place] [facility] [address] [id number] [place] [address]- 7706 Jun, [facility] [place] [facility] [address] [id number] [place] [address]- 2874 Jun, [facility] [place] [facility] [address] [id number] [place] [address]- 7480 Jun, [facility] [place] [facility] [address] [id number] [place] [address]- 2242 Jun, [facility] [place] [facility] [address] [id number] [place] [address]- 7314 26 Jun, 2014 [facility] [place] [facility] [address] [id number] [place] [address]- 6163 26 Jun, 2014 [facility] [place] [facility] [address] [id number] [place] [address]- 9427 24 Jun, 2014 [facility] [place] [facility] [address] [id number] [place] [address]- 4447 Jun, [facility] [place] [facility] [address] [id number] [place] [address]- 5772 Jun, [facility] [place] [facility] [address] [id number] [place] [address]- 1346 Jun, [facility] [place] [facility] [address] [id number] [place] [address]- 4757 Jun, [facility] [place] [facility] [address] [id number] [place] [address]- 6803 Jun, [facility] [place] [facility] [address] [id number] [place] [address]- 5071 Jun, [facility] [place] [facility] [address] [id number] [place] [address]- 7082 Jun, [facility] [place] [facility] [address] [id number] [place] [address]- 4005 20 Jun, 2014 [facility] [place] [facility] [address] [id number] [place] [address]- 2579 20 Jun, 2014 [facility] [place] [facility] [address] [id number] [place] [address]- 7117 20 Jun, 2014 [facility] [place] [facility] [address] [id number] [place] [address]- 7407 19 Jun, 2014 [facility] [place] [facility] [address] [id number] [place] [address]- 6157 19 Jun, 2014 [facility] [place] [facility] [address] [id number] [place] 7394 18 Jun, 2014 [facility] [place] [facility] [address] [id number] [place] [address]- 0776 18 Jun, 2014 [facility] [place] [facility] [address] [id number] [place] [address]- 1831 17 Jun, 2014 [facility] [place] [facility] [address] [id number] [place] [address]- 2950 17 Jun, 2014 [facility] [place] [facility] [address] [id number] [place] [address]- 8858 16 Jun, 2014 [facility] [place] [facility] [address] [id number] [place] [address]- 3318 16 Jun, 2014 [facility] [place] [facility] [address] [id number] [place] [address]- 9877 16 Jun, 2014 [facility] [place] [facility] [address] [id number] [place] [address]- 7107 16 Jun, 2014 [facility] [place] [facility] [address] [id number] [place] [address]- 7721 16 Jun, 2014 [facility] [place] [facility] [address] [id number] [place] [address]- 6419 16 Jun, 2014 [facility] [place] [facility] [address] [id number] [place] [address]- 8797 13 Jun, 2014 [facility] [place] [facility] [address] [id number] [place] [address]- 8991 13 Jun, 2014 [facility] [place] [facility] [address] [id number] [place] [address]- 0091 12 Jun, 2014 [facility] [place] [facility] [address] [id number] [place] [address]- 4761 12 Jun, 2014 [facility] [place] [facility] [address] [id number] [place] [address]- 3233 09 Jun, 2014 [facility] [place] [facility] [address] [id number] [place] [address]- 1212 09 Jun, 2014 [facility] [place] [facility] [address] [id number], [place] [address]- 6492 Jun, [facility] [place] [facility] [address] [id number] [place] [address]- 0957 Jun, [facility] [place] [facility] [address] [id number] [place] [address]- 5936 Jun, [facility] [place] [facility] [address] [facility] [id number] [place] [address]- 3019 Jun, [facility] [place] [facility] [address] [id number] [place] [address]- 0020 Jun, [facility] [place] [facility] [address] [id number] [place] [address]- 5136 Jun, [facility] [place] [facility] [address] [id number] [place] [address]- 4711 Jun, [facility] [place] [facility] [address] [facility] [id number] [place] [address]- 9765 Jun, [facility] [place] [facility] [address] [facility] [id number] [place] [address]- 2557 Jun, [facility] [place] [facility] [address] [id number] [place] [address]- 6350 Jun, [facility] [place] [facility] [address] [facility] [id number] [place] [address]- 1014 Jun, [facility] [place] [facility] [address] [id number] [place] [address]- 7418 Jun, [facility] [place] [facility] [address] [facility] [id number], [place] [address]- 1356 Jun, [facility] [place] [facility] [address] [id number] [place] [address]- 2598 Jun, [facility] [place] [facility] [address] [facility] [id number] [place] [address]- 4644 May, [facility] [place] [facility] [address] [facility] [id number]- 4095 May, [facility] [place] [facility] [address] [id number] [place] [address]- 4600 May, 2014 [facility] [place] [facility] [address] [id number] [place] [address]- 6096 May, 2014 [facility] [place] [facility] [address] [id number] [place] [address]- 0916 May, 2014 [facility] [place] [facility] [address] [id number] [place] [address]- 2549 May, 2014 [facility] [place] [facility] [address] [id number] [place] [address]- 1273 May, 2014 [facility] [place] [facility] [address] [id number] [place] [address]- 4888 May, 2014 [facility] [place] [facility] [id number] [place] [address]- 7515 May, 2014 [facility] [place] [facility] [address] [facility] [id number] [place] [address]- 8810 May, 2014 [facility] [place] [facility] [address] [facility] [id number] [place] [address]- 0836 18 May, 2014 [facility] [place] [facility] [address] [facility] [id number] [place] [address]- 9933 18 May, 2014 [facility] [place] [facility] [address] [facility] [id number] [place] [address]- 4772 13 May, 2014 [facility] [place] [facility] [address] [facility] [id number] [place] [address]- 2541 13 May, 2014 [facility] [place] [facility] [address] [facility] [id number] [place] [address] May, 2014 [facility] [place] [facility] [address] [facility] [id number] [place] [address] May, 2014 [facility] [place] [facility] [address] [facility] [id number] [place] [address] May, 2014 [facility] [place] [facility] [address] [facility] [id number] [place] [address] May, 2014 [facility] [place] [facility] [address] [id number] [place] [address] May, 2014 [facility] [place] [facility] [address] [facility] [id number] [place] [address] May, 2014 [facility] [place] [facility] [address] [id number] [place] [address] May, 2014 [facility] [place] [facility] [address] [id number] [place] [address] May, 2014 [facility] [place] [facility] [address] [id number] [place] [address] May, 2014 [facility] [place] [facility] [address] [facility] [id number] [place] [address] May, 2014 [facility] [place] [facility] [address] [facility] [id number], [place] [address] May, 2014 [facility] [place] [facility] [address] [facility] [id number] [place] [address] May, 2014 [facility] [place] [facility] [address] [facility] [id number] [place] [address] May, [facility] [place] [facility] [address] [facility] [id number], [place] [address] Apr, [facility] [place] [facility] [address] [facility] [id number], [place] [address] Apr, [facility] [place] [facility] [address] [id number], [place] [address] Apr, [facility] [place] [facility] [address] [facility] [id number], [place] [address] Apr, [facility] [place] [facility] [address] [facility] [id number], [place] [address] Apr, [facility] [place] [facility] [address] [facility] [id number], [place] [address] Apr, [facility] [place] [facility] [address] [id number] [place] [address] Apr, [facility] [place] [facility] [address] [id number] [place] [address] Apr, [facility] [place] [facility] [address] [id number] [place] [address] Apr, [facility] [place] [facility] [address] [id number] [place] [address] Apr, [facility] [place] [facility] [address] [id number] [place] [address] Apr, [facility] [place] [facility] [address] [id number] [place] [address] Apr, [facility] [place] [facility] [address] [id number] [place] [address] Apr, [facility] [place] [facility] [address] [id number] [place] [address] Apr, [facility] [place] [facility] [address] [id number] [place] [address] Apr, [facility] [place] [facility] [address] [id number] [place] [address] Apr, [facility] [place] [facility] [address] [id number], [place] [address] Apr, [facility] [place] [facility] [address] [id number], [place] [address] Apr, [facility] [place] [facility] [address] [id number] [place] [address] Apr, [facility] [place] [facility] [address] [id number] [place] [address] Apr, [facility] [place] [facility] [address] [id number] [place] [address] Mar, [facility] [place] [facility] [address] [id number] [place] [address] Mar, [facility] [place] [facility] [address] [id number] [place] [address] Mar, [facility] [place] [facility] [address] [id number] [place] [address] Mar, [facility] [place] [facility] [address] [id number] [place] [address] Mar, [facility] [place] [facility] [address] [id number] [place] [address] 2715 Mar, [facility] [place] [facility] [address] [id number] [place] [address] 8921 Mar, [facility] [place] [facility] [address] [id number] [place] [address] 5317 Mar, [facility] [place] [facility] [address] [id number] [place] [address]- 5748 15 Mar, 2014 [facility] [place] [facility] [address] [id number] [place] [address] 7522 15 Mar, 2014 [facility] [place] [facility] [address] [id number] [place] [address]- 8493 15 Mar, 2014 [facility] [place] [facility] [address] [id number] [place] [address] 3948 15 Mar, 2014 [facility] [place] [facility] [address] [id number] [place] [address] 5172 Mar, [facility] [place] [facility] [address] [id number] [place] [address] Mar, [facility] [place] [facility] [address] [id number] [place] [address] 7366 Mar, [facility] [place] [facility] [address] [id number] [place] [address] 1476 Mar, [facility] [place] [facility] [address] [id number] [place] [address]- 2996 Feb, [facility] [place] [facility] [address] [id number] [place] [address]- 2491 Feb, [facility] [place] [facility] [address] [id number] [place] [address]- 8476 Feb, [facility] [place] [facility] [address] [id number] [place] [address]- 4087 Feb, [facility] [place] [facility] [address] [id number] [place] [address]- 1013 Feb, [facility] [place] [facility] [address] [id number] [place] [address]- 3685 Feb, [facility] [place] [facility] [address] [id number] [place] [address]- 4711 Feb, [facility] [place] [facility] [address] [id number] [place] [address]- 1848 18 Feb, 2014 [facility] [place] [facility] [address] [id number] [place] [address]- 5113 18 Feb, 2014 [facility] [place] [facility] [address] [id number] [place] [address]- 3842 17 Feb, 2014 [facility] [place] [facility] [address] [id number] [place] [address]- 6022 17 Feb, 2014 [facility] [place] [facility] [address] [id number] [place] [address]- 8910 17 Feb, 2014 [facility] [place] [facility] [address] [id number], [place] [address] 17 Feb, 2014 [facility] [place] [facility] [address] [id number] [place] [address]- 6918 14 Feb, 2014 [facility] [place] [facility] [address] [id number] [place] [address]- 2404 14 Feb, 2014 [facility] [place] [facility] [address] [id number] [place] [address]- 7946 14 Feb, 2014 [facility] [place] [facility] [address] [id number] [place] [address]- 3094 14 Feb, 2014 [facility] [place] [facility] [address] [id number] [place] [address]- 4071 10 Feb, 2014 [facility] [place] [facility] [address] [id number] [place] [address]- 6431 10 Feb, 2014 [facility] [place] [facility] [address] [id number] [place] [address]- 1035 Feb, [facility] [place] [facility] [address] [id number] [place] [address]- 2796 Feb, [facility] [place] [facility] [address] [id number] [place] [address]- 7478 Jan, [facility] [place] [facility] [address] [id number] [place] [address]- 0404 Jan, [facility] [place] [facility] [address] [id number] [place] [address]- 6072 Jan, [facility] [place] [facility] [address] [id number] [place] [address]- 6960 Jan, [facility] [place] [facility] [address] [id number] [place] [address]- 9122 Jan, [facility] [place] [facility] [address] [id number] [place] [address]- 4303 Jan, [facility] [place] [facility] [address] [id number] [place] [address]- 3188 Jan, [facility] [place] [facility] [address] [id number] [place] [address]- 4499 Jan, [facility] [place] [facility] [address] [id number] [place] [address]- 1786 Jan, [facility] [place] [facility] [address] [id number] [place] [address]- 6299 Jan, [facility] [place] [facility] [address] [id number] [place] [address]- 4150 Jan, [facility] [place] [facility] [address] [id number] [place] [address]- 7031 17 Jan, 2013 [facility] [place] [facility] [address] [id number] [place] [address]- 0067 17 Jan, 2013 [facility] [place] [facility] [address] [id number] [place] [address]- 5967 17 Jan, 2014 [facility] [place] [facility] [address] [id number] [place] [address]- 9548 15 Jan, 2014 [facility] [place] [facility] [address] [id number] [place] [address]- 2431 15 Jan, 2014 [facility] [place] [facility] [address] [id number] [place] [address]- 9329 14 Jan, 2014 [facility] [place] [facility] [address] [id number] [place] [address]- 3843 14 Jan, 2014 [facility] [place] [facility] [address] [id number] [place] [address]- 1755 13 Jan, 2014 [facility] [place] [facility] [address] [id number] [place] [address]- 1806 13 Jan, 2014 [facility] [place] [facility] [address] [id number] [place] [address]- 9857 13 Jan, 2014 [facility] [place] [facility] [address] [id number] [place] [address]- 4646 13 Jan, 2014 [facility] [place] [facility] [address] [id number] [place] [address]- 2875 10 Jan, 2014 [facility] [place] [facility] [address] [id number] [place] [address]- 2792 02 Jan, 2014 [facility] [place] [facility] [address] [id number] [place] [address]- 9314 02 Jan, 2014 [facility] [place] [facility] [address] [id number] [place] [address]- 5699 25 Dec, 2013 [facility] [place] [facility] [address] [id number] [place] [address]- 6679 25 Sep, 2013 [facility] [place] [facility] [address] [id number] [place] [address]- 6536 23 Sep, 2013 [facility] [place] [facility] [address] [id number] [place] [address]- 9966 23 Sep, 2013 [facility] [place] [facility] [address] [id number] [place] [address] 2546 19 Sep, 2013 [facility] [place] [facility] [address] [id number] [place] [address]- 2540 19 Sep, 2013 [facility] [place] [facility] [address] [id number] [place] [address]- 1291 17 Sep, 2013 [facility] [place] [facility] [address] [id number] [place] [address]- 4172 17 Sep, 2013 [facility] [place] [facility] [address] [id number] [place] [address]- 4093 09 Sep, 2013 [facility] [place] [facility] [address] [id number] [place] [address]- 9124 09 Sep, 2013 [facility] [place] [facility] [address] [id number] [place] [address]- 5651 08 Sep, 2013 [facility] [place] [facility] [address] [id number] [place] [address]- 4790 08 Sep, 2013 [facility] [place] [facility] [address] [id number], [place] [address]- 5939 04 Sep, 2013 [facility] [place] [facility] [address] [id number], [place] [address]- 2540 04 Sep, 2013 [facility] [place] [facility] [address] [id number] [place] [address]- 2542 02 Sep, 2013 [facility] [place] [facility] [address] [id number] [place] [address]- 4572 02 Sep, 2013 [facility] [place] [facility] [address] [id number] [place] [address]- 5223 02 Sep, 2013 [facility] [place] [facility] [address] [id number] [place] [address]- 0290 Dec, [facility] [place] [facility] [address] [id number] [place] [address]- 5751 Nov, [facility] [place] [facility] [address] [id number] [place] [address]- 4630 Nov, [facility] [place] [facility] [address] [id number] [place] [address]- 4433 Nov, [facility] [place] [facility] [address] [id number] [place] [address]- 8237 Nov, [facility] [place] [facility] [address] [id number] [place] [address]- 1043 Nov, [facility] [place] [facility] [address] [id number] [place] [address]- 2637 Nov, [facility] [place] [facility] [address] [id number] [place] [address]- 3224 Nov, [facility] [place] [facility] [address] [id number] [place] [address]- 7264 Nov, [facility] [place] [facility] [address] [id number] [place] [address]- 4166 Nov, [facility] [place] [facility] [address] [id number] [place] [address]- 4533 Nov, [facility] [place] [facility] [address] [id number] [place] [address]- 4297 Nov, [facility] [place] [facility] [address] [id number] [place] [address]- 6326 Nov, [facility] [place] [facility] [address] [id number] [place] [address]- 0785 Oct, [facility] [place] [facility] [address] [id number] [place] [address]- 8391 Oct, [facility] [place] [facility] [address] [id number] [place] [address]- 7211 Oct, [facility] [place] [facility] [address] [id number] [place] [address]- 8008 Oct, [facility] [place] [facility] [address] [id number] [place] [address]- 2451 Oct, [facility] [place] [facility] [address] [id number] [place] [address]- 4629 Oct, [facility] [place] [facility] [address] [id number] [place] [address]- 4582 Oct, [facility] [place] [facility] [address] [id number] [place] [address]- 6488 Oct, [facility] [place] [facility] [address] [id number] [place] [address]- 6403 Oct, [facility] [place] [facility] [address] [id number] [place] [address]- 8229 Oct, [facility] [place] [facility] [address] [id number] [place] [address]- 4815 Oct, [facility] [place] [facility] [address] [id number] [place] [address]- 2656 Oct, [facility] [place] [facility] [address] [id number] [place] [address]- 7975 Oct, [facility] [place] [facility] [address] [id number] [place] [address]- 6492 Oct, [facility] [place] [facility] [address] [id number] [place] [address]- 5214 Oct, [facility] [place] [facility] [address] [id number] [place] [address]- 2456 Oct, [facility] [place] [facility] [address] [id number] [place] [address]- 1897 Oct, [facility] [place] [facility] [address] [id number] [place] [address]- 4223 Sep, [facility] [place] [facility] [address] [id number] [place] [address]- 8298 Sep, [facility] [place] [facility] [address] [id number] [place] [address]- 0248 Sep, [facility] [place] [facility] [address] [id number] [place] [address]- 2397 20 Sep, 2013 [facility] [place] [facility] [address] [id number] [place] [address]- 0389 18 Sep, 2013 [facility] [place] [facility] [address] [id number] [place] [address]- 5607 18 Sep, 2013 [facility] [place] [facility] [address] [id number] [place] [address]- 9600 17 Sep, 2013 [facility] [place] [facility] [address] [id number] [place] [address]- 8007 17 Sep, 2013 [facility] [place] [facility] [address] [facility] [id number] [place] [address]- 8074 Sep, [facility] [place] [facility] [address] [id number] [place] [address]- 9653 Sep, [facility] [place] [facility] [address] [id number] [place] [address]- 8264 Sep, [facility] [place] [facility] [address] [facility] [id number] [place] [address]- 6822 Sep, [facility] [place] [facility] [address] [id number] [place] [address]- 6147 Sep, [facility] [place] [facility] [address] [id number] [place] [address]- 8832 Sep, [facility] [place] [facility] [address] [id number] [place] [address]- 9653 09 Sep, 2013 [facility] [place] [facility] [address] [id number] [place] [address]- 1603 09 Sep, 2013 [facility] [place] [facility] [address] [facility] [id number] [place] [address]- 7180 07 Sep, 2013 [facility] [place] [facility] [address] [id number] [place] [address]- 3608 Sep, [facility] [place] [facility] [address] [id number] [place] [address]- 9961 Sep, [facility] [place] [facility] [address] [id number] [place] [address]- 2441 Sep, [facility] [place] [facility] [address] [id number] [place] [address]- 1215 Sep, [facility] [place] [facility] [address] [id number] [place] [address]- 2303 Sep, [facility] [place] [facility] [address] [id number] [place] [address]- 5645 August, [facility] [place] [facility] [address] [id number] [place] [address]- 8312 August, [facility] [place] [facility] [address] [id number] [place] [address]- 1578 August, [facility] [place] [facility] [address] [id number] [place] [address]- 9120 August, [facility] [place] [facility] [address] [id number] [place] [address]- 2905 August, [facility] [place] [facility] [address] [id number] [place] [address]- 0484 August, [facility] [place] [facility] [address] [id number] [place] [address]- 1216 August, [facility] [place] [facility] [address] [id number] [place] [address]- 3185 August, [facility] [place] [facility] [address] [id number] [place] [address]87 August, [facility] [place] [facility] [address] [id number] [place] [address]- 3759 August, [facility] [place] [facility] [address] [id number] [place] [address]- 1342 August, [facility] [place] [facility] [address] [id number] [place] [address]- 7961 Jul, [facility] [place] [facility] [address] [id number] [place] [address]- 9758 Jul, [facility] [place] [facility] [address] [id number] [place] [address]- 7067 Jul, [facility] [place] [facility] [address] [id number] [place] [address]- 3524 Jul, [facility] [place] [facility] [address] [id number] [place] [address]- 0943 Jul, [facility] [place] [facility] [address] [id number] [place] [address]- 2995 Jul, [facility] [place] [facility] [address] [id number] [place] [address]- 3707 Jul, [facility] [place] [facility] [address] [id number] [place] [address]- 4034 Jul, [facility] [place] [facility] [address] [id number] [place] [address]- 8489 Jul, [facility] [place] [facility] [address] [id number] [place] [address]- 8014 Jul, [facility] [place] [facility] [address] [id number] [place] [address]- 0197 16 Jul, 2013 [facility] [place] [facility] [address] [id number] [place] [address]- 9733 Jul, [facility] [place] [facility] [address] [id number] [place] [address]- 0402 Jul, [facility] [place] [facility] [address] [id number] [place] [address]- 5393 Jul, [facility] [place] [facility] [address] [id number] [place] [address]- 8112 Jul, [facility] [place] [facility] [address] [id number] [place] [address]- 2978 Jul, [facility] [place] [facility] [address] [id number] [place] [address]- 2749 Jul, [facility] [place] [facility] [address] [id number] [place] [address]- 5905 Jul, [facility] [place] [facility] [address] [id number] [place] [address]- 7783 Jul, [facility] [place] [facility] [address] [id number] [place] [address]- 3104 Jul, [facility] [place] [facility] [address] [id number] [place] [address]- 6570 Jul, [facility] [place] [facility] [address] [id number] [place] [address]- 8710 Jul, [facility] [place] [facility] [address] [id number] [place] [address]- 2423 Jul, [facility] [place] [facility] [address] [id number] [place] [address]- 2604 Jun, [facility] [place] [facility] [address] [id number] [place] [address]- 9044 Jun, [facility] [place] [facility] [address] [id number] [place] [address]- 2244 Jun, [facility] [place] [facility] [address] [id number] [place] [address]- 5131 Jun, [facility] [place] [facility] [address] [id number] [place] [address]- 7849 Jun, [facility] [place] [facility] [address] [id number] [place] [address]- 0700 Jun, [facility] [place] [facility] [address] [id number] [place] [address]- 1999 Jun, [facility] [place] [facility] [address] [id number] [place] [address]- 5853 Jun, [facility] [place] [facility] [address] [id number] [place] [address]- 7878 18 Jun, 2013 [facility] [place] [facility] [address] [id number] [place] [address]- 9810 18 Jun, 2013 [facility] [place] [facility] [address] [id number] [place] [address]- 6061 17 Jun, 2013 [facility] [place] [facility] [address] [id number] [place] [address]- 3718 17 Jun, 2013 [facility] [place] [facility] [address] [id number] [place] [address]- 5426 May, [facility] [place] [facility] [address] [id number] [place] [address]- 3165 May, [facility] [place] [facility] [address] [id number] [place] [address]- 2248 Apr, [facility] [place] [facility] [address] [id number] [place] [address]- 8513 Apr, [facility] [place] [facility] [address] [id number] [place] [address]- 1043 Apr, [facility] [place] [facility] [address] [id number] [place] [address]- 8612 Apr, [facility] [place] [facility] [address] [id number] [place] [address]- 4853 Apr, [facility] [place] [facility] [address] [id number] [place] [address]- 7971 Apr, [facility] [place] [facility] [address] [id number] [place] [address]- 1125 Apr, [facility] [place] [facility] [address] [id number] [place] [address]- 5730 Apr, [facility] [place] [facility] [address] [id number] [place] [address]- 2425 14 Apr, 2013 [facility] [place] [facility] [address] [id number], [place] [address]- 5512 Apr, [facility] [address] [id number] [place] [address]- 6359 Apr, [facility] [place] [facility] [address] [id number] [place] [address]- 2350 Mar, [facility] [place] [facility] [address] [id number] [place] [address]- 7911 Mar, [facility] [place] [facility] [address] [id number] [place] [address]- 2647 Mar, [facility] [place] [facility] [address] [id number] [place] [address]- 6846 Mar, [facility] [place] [facility] [address] [id number] [place] [address]- 0580 Feb, [facility] [place] [facility] [address] [id number] [place] [address]- 6398 Feb, [facility] [place] [facility] [address] [id number] [place] [address]- 9193 Feb, [facility] [place] [facility] [address] [id number] [place] [address]- 3639 Feb, [facility] [place] [facility] [address] [id number] [place] [address]- 3797 Feb, [facility] [place] [facility] [address] [id number], [place] [address]- 1891 Feb, [facility] [place] [facility] [address] [id number], [place] [address]- 5760 Feb, [facility] [place] [facility] [address] [id number], [place] [address] Feb, [facility] [place] [facility] [address] [id number], [place] [address] Feb, [facility] [place] [facility] [address] [id number] [place] [address] Feb, [facility] [place] [facility] [address] [id number] [place] [address] 02 Feb, 2013 [facility] [place] [facility] [address] [id number] [place] [address] Jan, 2012 [facility] [place] [facility] [address] [id number] [place] [address] Jan, [facility] [place] [facility] [address] [id number] [place] [address] Jan, 2012 [facility] [place] [facility] [address] [id number] [place] [address] Jan, 2012 [facility] [place] [facility] [address] [id number] [place] [address] Jan, [facility] [place] [facility] [address] [id number] [place] [address] 20[address] Jan, [facility] [place] [facility] [address] [id number] [place] [address] Jan, [facility] [address] [id number] [place] [address] 02 Jan, 2013 [facility] [place] [facility] [address] [id number] [place] [address]90 30 Sep, 2012 [facility] [place] [facility] [address] [id number] [place] [address] 9573 25 Sep, 2012 [facility] [place] [facility] [address] [id number] [place] [address] 2542 18 Sep, 2012 [facility] [place] [facility] [address] [id number] [place] [address] 2549 17 Sep, 2012 [facility] [place] [facility] [address] [id number] [place] [address] 2540 17 Sep, 2012 [facility] [place] [facility] [address] [id number] [place] [address] 2540 16 Sep, 2012 [facility] [place] [facility] [address] [id number] [place] [address]- 2544 13 Dec, 2012 [facility] [place] [facility] [address] [id number] [place] [address] 11 Dec, 2012 [facility] [place] [facility] [address] [id number] [place] [address]- 3827 05 Dec, 2012 [facility] [place] [facility] [address] [id number] [place] [address] 6469 04 Dec, 2012 [facility] [place] [facility] [address] [id number] [place] [address] 3736 30 Nov, 2012 [facility] [place] [facility] [address] [id number] [place] [address]- 7466 Nov, [facility] [place] [facility] [address] [id number] [place] [address] 0633 Nov, [facility] [place] [facility] [address] [id number] [place] [address] 7143 Nov, [facility] [place] [facility] [address] [id number] [place] [address] 9402 Nov, [facility] [place] [facility] [address] [id number] [place] [address] 5673 Nov, [facility] [place] [facility] [address] [id number] [place] [address] 3089 Nov, [facility] [place] [facility] [address] [id number] [place] [address]- 1491 Oct, [facility] [place] [facility] [address] [id number] [place] [address] 9437 Oct, [facility] [place] [facility] [address] [id number] [place] [address] 7219 Oct, [facility] [place] [facility] [address] [id number] [place] [address] 6242 Oct, [facility] [place] [facility] [address] [id number] [place] [address] 15 Oct, 2012 [facility] [place] [facility] [address] [id number] [place] [address] Oct, [facility] [address] [id number] [place] [address] 9752 28 Sep, 2012 [facility] [place] [facility] [address] [id number] [place] [address] 1200 Sep, [facility] [address] [id number] [place] [address] 3290 Sep, [facility] [place] [facility] [address] [id number] [place] [address] 3719 14 Sep, 2012 [facility] [address] [id number] [place] [address] 7067 13 Sep, 2012 [facility] [address] [id number] [place] [address]- 1725 Sep, [facility] [address] [id number] [place] [address] 7614 Sep, [facility] [address] [id number] [place] [address]- 9535 Sep, [facility] [address] [id number] [place] [address]- 2597 Sep, [facility] [address] [id number] [place] [address] 7401 August, [facility] [address] [id number] [place] [address] 0170 August, [facility] [place] [facility] [address] [id number] [place] [address] 0308 August, [facility] [place] [facility] [address] [id number] [place] [address]- 5786 August, [facility] [place] [facility] [address] [id number] [place] [address]- 7475 August, [facility] [place] [facility] [address] [id number] [place] [address]- 4386 August, [facility] [place] [facility] [address] [id number] [place] [address]- 0666 August, [facility] [address] [id number] [place] [address] 8566 August, [facility] [address] [id number] [place] [address] 1396 Jul, [facility] [address] [id number] [place] [address]- [address] Jul, [facility] [address] [place] [id number] Jul [facility] [address] [id number] [place] [address] Jun, [facility] [address] [id number] [place] [address]- 5286 Jun, [facility] [address] [id number] [place] [address]- 7437 Jun, [facility] [address] [id number] [place] [address]- 3132 Jun, [facility] [address] [id number] [place] [address] 6751 Jun, [facility] [address] [facility] [id number] [place] [address]- 8877 Jun, [facility] [address] [id number] [place] [address]- 6956 May, [facility] [address] [id number] [place] [address]- 2546 May, [facility] [address] [id number] [place] [address]- 2546 May, [facility] [address] [id number] [place] [address]- 2546 May, [facility] [address] [id number] [place] [address]- 9081 May, [facility] [address] [id number] [place] [address]- 5281 Apr, [facility] [place] [facility] [address] [id number] [place] [address]- 9861 Apr, [facility] [place] [facility] [address] [id number] [place] [address]- 2355 Apr, [facility] [place] [facility] [address] [id number] [place] [address]- 9255 Apr, [facility] [address] [id number] [place] [address]- 9969 Apr, [facility] [address] [id number] [place] [address]- 9435 Apr, [facility] [address] [id number] [place] [address]- 3859 Mar, [facility] [place] [facility] [address] [id number] [place] [address]- 7215 Mar, [facility] [place] [facility] [address] [id number] [place] [address]- 8475 Mar, [facility] [place] [facility] [address] [id number] [place] [address]- 5653 Mar, [facility] [place] [facility] [address] [id number] [place] [address]- 0120 Mar, [facility] [place] [facility] [address] [id number], [place] [address]- 5867 18 Mar, 2012 [facility] [place] [facility] [address] [id number] [place] [address] 18 Mar, 2012 [facility] [place] [facility] [address] [id number] [place] [address] Mar, [facility] [place] [facility] [address] [id number] [place] [address] 10 Mar, 2012 [facility] [place] [facility] [address] [id number] [place] [address]67 05 Mar, 2012 [facility] [place] [facility] [address] [id number] [place] [address] 9292 05 Mar, 2012 [facility] [place] [facility] [address] [id number] [place] [address] Feb, [facility] [place] [facility] [address] [id number] [place] [address] Feb, [facility] [place] [facility] [address] [id number] [place] [address] Feb, [facility] [place] [facility] [address] [id number] [place] [address] Feb, [facility] [place] [facility] [address] [id number] [place] [address] Feb, [facility] [place] [facility] [address] [id number] [place] [address] 85[address] Feb, [facility] [place] [facility] [address] [id number] [place] [address] Feb, [facility] [place] [facility] [address] [id number] [place] [address]279 Feb, [facility] [place] [facility] [address] [facility] [id number] [place] [address]796 Feb, [facility] [place] [facility] [address] [id number] [place] [address] 6961 Feb, [facility] [place] [facility] [address] [id number], [place] [address] Feb, [facility] [place] [facility] [address] [id number] [place] [address] Jan, [facility] [place] [facility] [address] [facility] [id number] [place] [address] 1266 Jan, [facility] [place] [facility] [address] [facility] [id number], [place] [address] Jan, [facility] [place] [facility] [address] [id number] [place] [address] Jan, [facility] [place] [facility] [address] [id number] [place] [address]- 8254 Jan, [facility] [place] [facility] [address] [id number] [place] [address] 56[address] Jan, [facility] [place] [facility] [address] [id number] [place] [address] 9500 Jan, [facility] [place] [facility] [address] [id number] [place] [address] 24 Dec, 2011 [facility] [place] [facility] [address] [id number] [place] [address] 1491 17 Dec, 2011 [facility] [place] [facility] [address] [id number] [place] [address] 1974 13 Dec, 2011 [facility] [place] [facility] [address] [id number] [place] [address] 8759 12 Dec, 2011 [facility] [place] [facility] [address] [id number] [place] [address]77 Nov, [facility] [place] [facility] [address] [id number] [place] [address] 3648 Nov, [facility] [place] [facility] [address] [id number] [place] [address] 8524 17 Nov, 2011 [facility] [place] [facility] [address] [id number] [place] [address]- 9164 15 Nov, 2011 [facility] [place] [facility] [address] [id number] [place] [address] 14 Nov, 2011 [facility] [place] [facility] [address] [id number] [place] [address]- 8588 13 Nov, 2011 [facility] [place] [facility] [address] [id number] [place] [address]- 8785 10 Nov, 2011 [facility] [place] [facility] [address] [id number] [place] [address] 8513 Nov, [facility] [place] [facility] [address] [id number] [place] [address]- 4824 Nov, [facility] [place] [facility] [address] [id number] [place] [address] 1195 Nov, [facility] [place] [facility] [address] [id number] [place] [address] 4761 Nov, [facility] [place] [facility] [address] [id number] [place] [address] 6520 Nov, [facility] [place] [facility] [address] [id number] [place] [address] 9905 Nov, [facility] [place] [facility] [address] [id number] [place] [address] 8039 Oct, [facility] [place] [facility] [address] [id number] [place] [address] Oct, [facility] [place] [facility] [address] [id number] [place] [address] 3970 Oct, [facility] [place] [facility] [address] [id number] [place] [address] 2993 Oct, [facility] [place] [facility] [address] [id number] [place] [address] 3414 Oct, [facility] [place] [facility] [address] [id number] [place] [address] 3931 Oct, [facility] [place] [facility] [address] [id number] [place] [address] 2210 Oct, [facility] [place] [facility] [address] [id number] [place] [address] 8128 Oct, [facility] [place] [facility] [address] [id number] [place] [address] 2448 Oct, [facility] [place] [facility] [address] [id number] [place] [address] 8432 Sep, [facility] [place] [facility] [address] [id number] [place] [address]- 2684 Sep, [facility] [address] [id number] [place] [address] 2350 Sep, [facility] [place] [facility] [address] [id number] [place] [address] 3626 Sep, [facility] [address] [id number] [place] [address] 68[address] Sep, [facility] [place] [facility] [address] [id number] [place] [address] 2639 Sep, [facility] [address] [id number] [place] [address] 6080 Sep, [facility] [address] [id number] [place] [address] 3430 Sep, [facility] [address] [id number] [place] [address] 68[address] August, [facility] [address] [id number] [place] [address] 7809 August, [facility] [address] [id number] [place] [address] 5977 August, [facility] [address] [id number] [place] [address] 6837 August, [facility] [place] [facility] [address] [id number] [place] [address] 9387 August, [facility] [address] [id number] [place] [address] 8390 August, [facility] [place] [facility] [address] [id number] [place] [address] 4345 August, [facility] [place] [facility] [address] [id number] [place] [address] 5798 August, [facility] [address] [id number] [place] [address]- [address]807 August, [facility] [address] [facility] [id number] [place] [address]- [address]366 August, [facility] [address] [facility] [id number], [place] [address] August, [facility] [address] [facility] [id number], [place] [address] August, [facility] [address] [facility] [id number], [place] [address] Oct, IMMUNIZATIONS No Known Immunizations SOCIAL HISTORY [...] Surgical History bladder surgery Hospitalization History [facility] for right groin pain 05/2011 Hospitalization History [facility] for wound on buttocks 08/2012 [...]
--- OUTSIDE RECORDS SUMMARY | 2017-11-24 18:16 | XMS REPORT ---
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 August, [facility] [id number] [place] [address] 14966- 8539 August, Episodic mood disorder 296.90 [facility] [address] [address]- 7372 August, [facility] [id number] [place] [address] 18883- 6193 August, Unspecified episodic mood disorder 296.90 [facility] [address] [address]- 9238 August, Vomiting 787.03 [facility] [address] [address]- 8597 August, [facility] [address] [address]- 7921 August, [facility] [address] [address]- 9550 August, [facility] [address] [address]- 0764 August, [facility] [address] [address]- 2546 August, [facility] [place] [facility] [address] [id number] [place] [address]- 5832 28 Jul, 2014 [facility] [place] [facility] [address] [id number] [place] [address]- 7196 Jul, [facility] [place] [facility] [address] [id number] [place] [address]- 4235 Jul, [facility] [place] [facility] [address] [id number] [place] [address]- 8016 30 Jun, 2014 [facility] [place] [facility] [address] [id number] [place] [address]- 9744 Jun, [facility] [place] [facility] [address] [id number] [place] [address]- 5191 Jun, [facility] [place] [facility] [address] [id number] [place] [address]- 6398 Jun, [facility] [place] [facility] [address] [id number] [place] [address]- 5870 Jun, [facility] [place] [facility] [address] [id number] [place] [address]- 9761 Jun, [facility] [place] [facility] [address] [id number] [place] [address]- 2798 Jun, [facility] [place] [facility] [address] [id number] [place] [address]- 0747 Jun, [facility] [place] [facility] [address] [id number] [place] [address]- 5729 Jun, [facility] [place] [facility] [address] [id number] [place] [address]- 6679 Jun, [facility] [place] [facility] [address] [id number] [place] [address]- 7489 Jun, [facility] [place] [facility] [address] [id number] [place] [address]- 5928 Jun, [facility] [place] [facility] [address] [id number] [place] [address]- 0003 26 Jun, 2014 [facility] [place] [facility] [address] [id number] [place] [address]- 2335 26 Jun, 2014 [facility] [place] [facility] [address] [id number] [place] [address]- 1970 24 Jun, 2014 [facility] [place] [facility] [address] [id number] [place] [address]- 4135 Jun, [facility] [place] [facility] [address] [id number] [place] [address]- 3740 Jun, [facility] [place] [facility] [address] [id number] [place] [address]- 2404 Jun, [facility] [place] [facility] [address] [id number] [place] [address]- 9108 Jun, [facility] [place] [facility] [address] [id number] [place] [address]- 5786 Jun, [facility] [place] [facility] [address] [id number] [place] [address]- 7991 Jun, [facility] [place] [facility] [address] [id number] [place] [address]- 0991 Jun, [facility] [place] [facility] [address] [id number] [place] [address]- 8906 20 Jun, 2014 [facility] [place] [facility] [address] [id number] [place] [address]- 4097 20 Jun, 2014 [facility] [place] [facility] [address] [id number] [place] [address]- 8177 20 Jun, 2014 [facility] [place] [facility] [address] [id number] [place] [address]- 5247 19 Jun, 2014 [facility] [place] [facility] [address] [id number] [place] [address]- 6615 19 Jun, 2014 [facility] [place] [facility] [address] [id number] [place] 8266 18 Jun, 2014 [facility] [place] [facility] [address] [id number] [place] [address]- 9214 18 Jun, 2014 [facility] [place] [facility] [address] [id number] [place] [address]- 6329 17 Jun, 2014 [facility] [place] [facility] [address] [id number] [place] [address]- 8160 17 Jun, 2014 [facility] [place] [facility] [address] [id number] [place] [address]- 5093 16 Jun, 2014 [facility] [place] [facility] [address] [id number] [place] [address]- 6264 16 Jun, 2014 [facility] [place] [facility] [address] [id number] [place] [address]- 6275 16 Jun, 2014 [facility] [place] [facility] [address] [id number] [place] [address]- 3988 16 Jun, 2014 [facility] [place] [facility] [address] [id number] [place] [address]- 5265 16 Jun, 2014 [facility] [place] [facility] [address] [id number] [place] [address]- 2828 16 Jun, 2014 [facility] [place] [facility] [address] [id number] [place] [address]- 0913 13 Jun, 2014 [facility] [place] [facility] [address] [id number] [place] [address]- 7980 13 Jun, 2014 [facility] [place] [facility] [address] [id number] [place] [address]- 9567 12 Jun, 2014 [facility] [place] [facility] [address] [id number] [place] [address]- 7438 12 Jun, 2014 [facility] [place] [facility] [address] [id number] [place] [address]- 4888 09 Jun, 2014 [facility] [place] [facility] [address] [id number] [place] [address]- 5562 09 Jun, 2014 [facility] [place] [facility] [address] [id number] [address]- 9865 Jun, [facility] [place] [facility] [address] [id number] [place] [address]- 2830 Jun, [facility] [place] [facility] [address] [id number] [place] [address]- 0343 Jun, [facility] [place] [facility] [address] [facility] [place] [id number] [place] [address]- 1010 Jun, [facility] [place] [facility] [address] [id number] [place] [address]- 3929 Jun, [facility] [place] [facility] [address] [id number] [place] [address]- 6277 Jun, [facility] [place] [facility] [address] [id number] [place] [address]- 1883 Jun, [facility] [place] [facility] [address] [facility] [place] [id number] [place] [address]- 4853 Jun, [facility] [place] [facility] [address] [facility] [place] [id number] [place] [address]- 8709 Jun, [facility] [place] [facility] [address] [id number] [place] [address]- 8170 Jun, [facility] [place] [facility] [address] [facility] [place] [id number] [place] [address]- 4106 Jun, [facility] [place] [facility] [address] [id number] [place] [address]- 8398 Jun, [facility] [place] [facility] [address] [facility] [id number] [address] Jun, [facility] [place] [facility] [address] [id number] [place] [address] Jun, [facility] [place] [facility] [address] [facility] [place] [id number] [place] [address] May, [facility] [place] [facility] [address] [facility] [id number] [address] [address] May, [facility] [place] [facility] [address] [id number] [place] [address] May, 2014 [facility] [place] [facility] [address] [id number] [place] [address] May, 2014 [facility] [place] [facility] [address] [id number] [place] [address] May, 2014 [facility] [place] [facility] [address] [id number] [place] [address] May, 2014 [facility] [place] [facility] [address] [id number] [place] [address] May, 2014 [facility] [place] [facility] [address] [id number] [place] [address] May, 2014 [facility] [place] [facility] [address] [id number] [address] May, 2014 [facility] [place] [facility] [address] [facility] [place] [id number] [place] [address] May, 2014 [facility] [place] [facility] [address] [facility] [place] [id number] [place] [address] 18 May, 2014 [facility] [place] [facility] [address] [facility] [place] [id number] [place] [address] 18 May, 2014 [facility] [place] [facility] [address] [facility] [place] [id number] [place] [address] 13 May, 2014 [facility] [place] [facility] [address] [facility] [place] [id number] [place] [address] 13 May, 2014 [facility] [place] [facility] [address] [facility] [place] [id number] [place] [address] May, 2014 [facility] [place] [facility] [address] [facility] [place] [id number] [place] [address] 47[address] May, 2014 [facility] [place] [facility] [address] [facility] [place] [id number] [place] [address] May, 2014 [facility] [place] [facility] [address] [facility] [place] [id number] [place] [address] May, 2014 [facility] [place] [facility] [address] [id number] [place] [address]- [address] May, 2014 [facility] [place] [facility] [address] [facility] [place] [id number] [place] [address] May, 2014 [facility] [place] [facility] [address] [id number] [place] [address]71 May, 2014 [facility] [place] [facility] [address] [id number] [place] [address] May, 2014 [facility] [place] [facility] [address] [id number] [place] [address] May, 2014 [facility] [place] [facility] [address] [facility] [place] [id number] [place] [address] May, 2014 [facility] [place] [facility] [address] [facility] [place] [id number] [address] May, 2014 [facility] [place] [facility] [address] [facility] [place] [id number] [place] [address] May, 2014 [facility] [place] [facility] [address] [facility] [place] [id number] [place] [address] May, [facility] [place] [facility] [address] [facility] [place] [id number] [address] Apr, [facility] [place] [facility] [address] [facility] [place] [id number] [address] Apr, [facility] [place] [facility] [address] [id number] [address] Apr, [facility] [place] [facility] [address] [facility] [place] [id number] [address] Apr, [facility] [place] [facility] [address] [facility] [place] [id number] [address] Apr, [facility] [place] [facility] [address] [facility] [place] [id number] [address] Apr, [facility] [place] [facility] [address] [id number] [place] [address] 4914 Apr, [facility] [place] [facility] [address] [id number] [place] [address]- 7915 Apr, [facility] [place] [facility] [address] [id number] [place] [address]- 0234 Apr, [facility] [place] [facility] [address] [id number] [place] [address]- 3924 Apr, [facility] [place] [facility] [address] [id number] [place] [address]- 8075 Apr, [facility] [place] [facility] [address] [id number] [place] [address]- 0833 Apr, [facility] [place] [facility] [address] [id number] [place] [address]- 5773 Apr, [facility] [place] [facility] [address] [id number] [place] [address]- 5147 Apr, [facility] [place] [facility] [address] [id number] [place] [address]- 4844 Apr, [facility] [place] [facility] [address] [id number] [place] [address]- 5347 Apr, [facility] [place] [facility] [address] [id number] [address] 74[address] Apr, [facility] [place] [facility] [address] [id number][place] [address] 4769 Apr, [facility] [place] [facility] [address] [id number] [place] [address]- 3595 Apr, [facility] [place] [facility] [address] [id number] [place] [address]- 8132 Apr, [facility] [place] [facility] [address] [id number] [place] [address]- 2772 Mar, [facility] [place] [facility] [address] [id number] [place] [address]- 8763 Mar, [facility] [place] [facility] [address] [id number] [place] [address]- 6126 Mar, [facility] [place] [facility] [address] [id number] [place] [address]- 4806 Mar, [facility] [place] [facility] [address] [id number] [place] [address]- 8576 Mar, [facility] [place] [facility] [address] [id number] [place] [address]- 4715 Mar, [facility] [place] [facility] [address] [id number] [place] [address]- 8281 Mar, [facility] [place] [facility] [address] [id number] [place] [address]- 3486 Mar, [facility] [place] [facility] [address] [id number] [place] [address]- 0535 15 Mar, 2014 [facility] [place] [facility] [address] [id number] [place] [address]- 3125 15 Mar, 2014 [facility] [place] [facility] [address] [id number] [place] [address]- 5952 15 Mar, 2014 [facility] [place] [facility] [address] [id number] [place] [address]- 3695 15 Mar, 2014 [facility] [place] [facility] [address] [id number] [place] [address]- 9095 Mar, [facility] [place] [facility] [address] [id number] [place] [address] Mar, [facility] [place] [facility] [address] [id number] [place] [address]- 8206 Mar, [facility] [place] [facility] [address] [id number] [place] [address] 2986 Mar, [facility] [place] [facility] [address] [id number] [place] [address]- 4236 Feb, [facility] [place] [facility] [address] [id number] [place] [address]- 5086 Feb, [facility] [place] [facility] [address] [id number] [place] [address]- 3733 Feb, [facility] [place] [facility] [address] [id number] [place] [address]- 4833 Feb, [facility] [place] [facility] [address] [id number] [place] [address]- 9080 Feb, [facility] [place] [facility] [address] [id number] [place] [address]- 4362 Feb, [facility] [place] [facility] [address] [id number] [place] [address]- 7224 Feb, [facility] [place] [facility] [address] [id number] [place] [address]- 1359 18 Feb, 2014 [facility] [place] [facility] [address] [id number] [place] [address]- 7407 18 Feb, 2014 [facility] [place] [facility] [address] [id number] [place] [address]- 6211 17 Feb, 2014 [facility] [place] [facility] [address] [id number] [place] [address]- 5641 17 Feb, 2014 [facility] [place] [facility] [address] [id number] [place] [address]- 3461 17 Feb, 2014 [facility] [place] [facility] [address] [id number] [address] 6556 17 Feb, 2014 [facility] [place] [facility] [address] [id number] [place] [address]- 7154 14 Feb, 2014 [facility] [place] [facility] [address] [id number] [place] [address]- 7788 14 Feb, 2014 [facility] [place] [facility] [address] [id number] [place] [address]- 9314 14 Feb, 2014 [facility] [place] [facility] [address] [id number] [place] [address]- 1757 14 Feb, 2014 [facility] [place] [facility] [address] [id number] [place] [address]- 2125 10 Feb, 2014 [facility] [place] [facility] [address] [id number] [place] [address]- 8137 10 Feb, 2014 [facility] [place] [facility] [address] [id number] [place] [address]- 1117 Feb, [facility] [place] [facility] [address] [id number] [place] [address]- 0101 Feb, [facility] [place] [facility] [address] [id number] [place] [address]- 4706 Jan, [facility] [place] [facility] [address] [id number] [place] [address]- 1365 Jan, [facility] [place] [facility] [address] [id number] [place] [address]- 5118 Jan, [facility] [place] [facility] [address] [id number] [place] [address]- 8881 Jan, [facility] [place] [facility] [address] [id number] [place] [address]- 2945 Jan, [facility] [place] [facility] [address] [id number] [place] [address]- 3416 Jan, [facility] [place] [facility] [address] [id number] [place] [address]- 0846 Jan, [facility] [place] [facility] [address] [id number] [place] [address]- 1675 Jan, [facility] [place] [facility] [address] [id number] [place] [address]- 2043 Jan, [facility] [place] [facility] [address] [id number] [place] [address]- 7797 Jan, [facility] [place] [facility] [address] [id number] [place] [address]- 8071 Jan, [facility] [place] [facility] [address] [id number] [place] [address]- 6489 17 Jan, 2013 [facility] [place] [facility] [address] [id number] [place] [address]- 5409 17 Jan, 2013 [facility] [place] [facility] [address] [id number] [place] [address]- 6068 17 Jan, 2014 [facility] [place] [facility] [address] [id number] [place] [address]- 8155 15 Jan, 2014 [facility] [place] [facility] [address] [id number] [place] [address]- 7046 15 Jan, 2014 [facility] [place] [facility] [address] [id number] [place] [address]- 6089 14 Jan, 2014 [facility] [place] [facility] [address] [id number] [place] [address]- 8290 14 Jan, 2014 [facility] [place] [facility] [address] [id number] [place] [address]- 6356 13 Jan, 2014 [facility] [place] [facility] [address] [id number] [place] [address]- 4159 13 Jan, 2014 [facility] [place] [facility] [address] [id number] [place] [address]- 7477 13 Jan, 2014 [facility] [place] [facility] [address] [id number] [place] [address]- 8237 13 Jan, 2014 [facility] [place] [facility] [address] [id number] [place] [address]- 9531 10 Jan, 2014 [facility] [place] [facility] [address] [id number] [place] [address]- 8198 02 Jan, 2014 [facility] [place] [facility] [address] [id number] [place] [address]- 8747 02 Jan, 2014 [facility] [place] [facility] [address] [id number] [place] [address]- 9290 25 Dec, 2013 [facility] [place] [facility] [address] [id number] [place] [address]- 9099 25 Sep, 2013 [facility] [place] [facility] [address] [id number] [place] [address]- 2376 23 Sep, 2013 [facility] [place] [facility] [address] [id number] [place] [address]- 1486 23 Sep, 2013 [facility] [place] [facility] [address] [id number] [place] [address] 2546 19 Sep, 2013 [facility] [place] [facility] [address] [id number] [place] [address]- 2547 19 Sep, 2013 [facility] [place] [facility] [address] [id number] [place] [address]- 8125 17 Sep, 2013 [facility] [place] [facility] [address] [id number] [place] [address]- 3578 17 Sep, 2013 [facility] [place] [facility] [address] [id number] [place] [address]- 6307 09 Sep, 2013 [facility] [place] [facility] [address] [id number] [place] [address]- 2582 09 Sep, 2013 [facility] [place] [facility] [address] [id number] [place] [address]- 5951 08 Sep, 2013 [facility] [place] [facility] [address] [id number] [place] [address]- 0857 08 Sep, 2013 [facility] [place] [facility] [address] [id number] [address]- 8638 04 Sep, 2013 [facility] [place] [facility] [address] [id number], [place] [address]- 2544 04 Sep, 2013 [facility] [place] [facility] [address] [id number] [place] [address]- 2545 02 Sep, 2013 [facility] [place] [facility] [address] [id number] [place] [address]- 9452 02 Sep, 2013 [facility] [place] [facility] [address] [id number] [place] [address]- 9458 02 Sep, 2013 [facility] [place] [facility] [address] [id number] [place] [address]- 8490 Dec, [facility] [place] [facility] [address] [id number] [place] [address]- 4927 Nov, [facility] [place] [facility] [address] [id number] [place] [address]- 8499 Nov, [facility] [place] [facility] [address] [id number] [place] [address]- 8116 Nov, [facility] [place] [facility] [address] [id number] [place] [address]- 5900 Nov, [facility] [place] [facility] [address] [id number] [place] [address]- 0989 Nov, [facility] [place] [facility] [address] [id number] [place] [address]- 6127 Nov, [facility] [place] [facility] [address] [id number] [place] [address]- 9356 Nov, [facility] [place] [facility] [address] [id number] [place] [address]- 8489 Nov, [facility] [place] [facility] [address] [id number] [place] [address]- 7178 Nov, [facility] [place] [facility] [address] [id number] [place] [address]- 8060 Nov, [facility] [place] [facility] [address] [id number] [place] [address]- 0861 Nov, [facility] [place] [facility] [address] [id number] [place] [address]- 6865 Nov, [facility] [place] [facility] [address] [id number] [place] [address]- 3245 Oct, [facility] [place] [facility] [address] [id number] [place] [address]- 4256 Oct, [facility] [place] [facility] [address] [id number] [place] [address]- 5529 Oct, [facility] [place] [facility] [address] [id number] [place] [address]- 9851 Oct, [facility] [place] [facility] [address] [id number] [place] [address]- 6892 Oct, [facility] [place] [facility] [address] [id number] [place] [address]- 5090 Oct, [facility] [place] [facility] [address] [id number] [place] [address]- 5183 Oct, [facility] [place] [facility] [address] [id number] [place] [address]- 2470 Oct, [facility] [place] [facility] [address] [id number] [place] [address]- 7473 Oct, [facility] [place] [facility] [address] [id number] [place] [address]- 0825 Oct, [facility] [place] [facility] [address] [id number] [place] [address]- 3924 Oct, [facility] [place] [facility] [address] [id number] [place] [address]- 9179 Oct, [facility] [place] [facility] [address] [id number] [place] [address]- 4623 Oct, [facility] [place] [facility] [address] [id number] [place] [address]- 9630 Oct, [facility] [place] [facility] [address] [id number] [place] [address]- 3964 Oct, [facility] [place] [facility] [address] [id number] [place] [address]- 0659 Oct, [facility] [place] [facility] [address] [id number] [place] [address]- 7756 Oct, [facility] [place] [facility] [address] [id number] [place] [address]- 6281 Sep, [facility] [place] [facility] [address] [id number] [place] [address]- 8771 Sep, [facility] [place] [facility] [address] [id number] [place] [address]- 7010 Sep, [facility] [place] [facility] [address] [id number] [place] [address]- 7441 20 Sep, 2013 [facility] [place] [facility] [address] [id number] [place] [address]- 3527 18 Sep, 2013 [facility] [place] [facility] [address] [id number] [place] [address]- 2156 18 Sep, 2013 [facility] [place] [facility] [address] [id number] [place] [address]- 4038 17 Sep, 2013 [facility] [place] [facility] [address] [id number] [place] [address]- 5100 17 Sep, 2013 [facility] [place] [facility] [address] [facility] [place] [id number] [place] [address]- 9446 Sep, [facility] [place] [facility] [address] [id number] [place] [address]- 0191 Sep, [facility] [place] [facility] [address] [id number] [place] [address]- 1844 Sep, [facility] [place] [facility] [address] [facility] [place] [id number] [place] [address]- 0109 Sep, [facility] [place] [facility] [address] [id number] [place] [address]- 5702 Sep, [facility] [place] [facility] [address] [id number] [place] [address]- 0737 Sep, [facility] [place] [facility] [address] [id number] [place] [address]- 4258 09 Sep, 2013 [facility] [place] [facility] [address] [id number] [place] [address]- 7890 09 Sep, 2013 [facility] [place] [facility] [address] [facility] [place] [id number] [place] [address]- 8067 07 Sep, 2013 [facility] [place] [facility] [address] [id number] [place] [address]- 8451 Sep, [facility] [place] [facility] [address] [id number] [place] [address]- 1554 Sep, [facility] [place] [facility] [address] [id number] [place] [address]- 0071 Sep, [facility] [place] [facility] [address] [id number] [place] [address]- 3651 Sep, [facility] [place] [facility] [address] [id number] [place] [address]- 7474 Sep, [facility] [place] [facility] [address] [id number] [place] [address]- 8610 August, [facility] [place] [facility] [address] [id number] [place] [address]- 9673 August, [facility] [place] [facility] [address] [id number] [place] [address]- 9370 August, [facility] [place] [facility] [address] [id number] [place] [address]- 2324 August, [facility] [place] [facility] [address] [id number] [place] [address]- 8414 August, [facility] [place] [facility] [address] [id number] [place] [address]- 0076 August, [facility] [place] [facility] [address] [id number] [place] [address]- 3021 August, [facility] [place] [facility] [address] [id number] [place] [address]- 0976 August, [facility] [place] [facility] [address] [id number] [place]126 August, [facility] [place] [facility] [address] [id number] [place] [address]- 3055 August, [facility] [place] [facility] [address] [id number] [place] [address]- 7375 August, [facility] [place] [facility] [address] [id number] [place] [address]- 1479 Jul, [facility] [place] [facility] [address] [id number] [place] [address]- 3703 Jul, [facility] [place] [facility] [address] [id number] [place] [address]- 1452 Jul, [facility] [place] [facility] [address] [id number] [place] [address]- 6480 Jul, [facility] [place] [facility] [address] [id number] [place] [address]- 2128 Jul, [facility] [place] [facility] [address] [id number] [place] [address]- 4871 Jul, [facility] [place] [facility] [address] [id number] [place] [address]- 9958 Jul, [facility] [place] [facility] [address] [id number] [place] [address]- 8995 Jul, [facility] [place] [facility] [address] [id number] [place] [address]- 5235 Jul, [facility] [place] [facility] [address] [id number] [place] [address]- 1885 Jul, [facility] [place] [facility] [address] [id number] [place] [address]- 2029 16 Jul, 2013 [facility] [place] [facility] [address] [id number] [place] [address]- 1318 Jul, [facility] [place] [facility] [address] [id number] [place] [address]- 9095 Jul, [facility] [place] [facility] [address] [id number] [place] [address]- 9895 Jul, [facility] [place] [facility] [address] [id number] [place] [address]- 3256 Jul, [facility] [place] [facility] [address] [id number] [place] [address]- 4322 Jul, [facility] [place] [facility] [address] [id number] [place] [address]- 7115 Jul, [facility] [place] [facility] [address] [id number] [place] [address]- 7881 Jul, [facility] [place] [facility] [address] [id number] [place] [address]- 0318 Jul, [facility] [place] [facility] [address] [id number] [place] [address]- 5526 Jul, [facility] [place] [facility] [address] [id number] [place] [address]- 0754 Jul, [facility] [place] [facility] [address] [id number] [place] [address]- 2244 Jul, [facility] [place] [facility] [address] [id number] [place] [address]- 9049 Jul, [facility] [place] [facility] [address] [id number] [place] [address]- 4313 Jun, [facility] [place] [facility] [address] [id number] [place] [address]- 2877 Jun, [facility] [place] [facility] [address] [id number] [place] [address]- 5671 Jun, [facility] [place] [facility] [address] [id number] [place] [address]- 8888 Jun, [facility] [place] [facility] [address] [id number] [place] [address]- 6662 Jun, [facility] [place] [facility] [address] [id number] [place] [address]- 1086 Jun, [facility] [place] [facility] [address] [id number] [place] [address]- 0705 Jun, [facility] [place] [facility] [address] [id number] [place] [address]- 5872 Jun, [facility] [place] [facility] [address] [id number] [place] [address]- 4859 18 Jun, 2013 [facility] [place] [facility] [address] [id number] [place] [address]- 0590 18 Jun, 2013 [facility] [place] [facility] [address] [id number] [place] [address]- 3779 17 Jun, 2013 [facility] [place] [facility] [address] [id number] [place] [address]- 1951 17 Jun, 2013 [facility] [place] [facility] [address] [id number] [place] [address]- 1834 May, [facility] [place] [facility] [address] [id number] [place] [address] May, [facility] [place] [facility] [address] [id number] [place] [address] Apr, [facility] [place] [facility] [address] [id number] [place] [address] Apr, [facility] [place] [facility] [address] [id number] [place] [address] Apr, [facility] [place] [facility] [address] [id number] [place] [address] Apr, [facility] [place] [facility] [address] [id number] [place] [address] Apr, [facility] [place] [facility] [address] [id number] [place] [address] Apr, [facility] [place] [facility] [address] [id number] [place] [address] Apr, [facility] [place] [facility] [address] [id number] [place] [address] Apr, [facility] [place] [facility] [address] [id number] [place] [address] 14 Apr, 2013 [facility] [place] [facility] [address] [id number] [address] Apr, [facility] [address] [id number] [place] [address] Apr, [facility] [place] [facility] [address] [id number] [place] [address] 97[address] Mar, [facility] [place] [facility] [address] [id number] [place] [address]268 Mar, [facility] [place] [facility] [address] [id number] [place] [address] 49[address] Mar, [facility] [place] [facility] [address] [id number] [place] [address] 8589 Mar, [facility] [place] [facility] [address] [id number] [place] [address] 36[address] Feb, [facility] [place] [facility] [address] [id number] [place] [address] Feb, [facility] [place] [facility] [address] [id number] [place] [address] 4[address] Feb, [facility] [place] [facility] [address] [id number] [place] [address] Feb, [facility] [place] [facility] [address] [id number] [place] [address] 6[address] Feb, [facility] [place] [facility] [address] [id number] [address] Feb, [facility] [place] [facility] [address] [id number], [place] [address] Feb, [facility] [place] [facility] [address] [id number], [place] [address] Feb, [facility] [place] [facility] [address] [id number], [place] [address] Feb, [facility] [place] [facility] [address] [id number] [place] [address] Feb, [facility] [place] [facility] [address] [id number] [place] [address] 02 Feb, 2013 [facility] [place] [facility] [address] [id number] [place] [address] Jan, 2012 [facility] [place] [facility] [address] [id number] [place] [address] Jan, [facility] [place] [facility] [address] [id number] [place] [address] 1071 Jan, 2012 [facility] [place] [facility] [address] [id number] [place] [address] 4[address] Jan, 2012 [facility] [place] [facility] [address] [id number] [place] [address] 1442 Jan, [facility] [place] [facility] [address] [id number] [place] [address] 7472 Jan, [facility] [place] [facility] [address] [id number] [place] [address] 6[address] Jan, [facility] [address] [id number] [place] [address] 9[address] 02 Jan, 2013 [facility] [place] [facility] [address] [id number] [place] [address] 30 Sep, 2012 [facility] [place] [facility] [address] [id number] [place] [address]- [address] 25 Sep, 2012 [facility] [place] [facility] [address] [id number] [place] [address]48 18 Sep, 2012 [facility] [place] [facility] [address] [id number] [place] [address]40 17 Sep, 2012 [facility] [place] [facility] [address] [id number] [place] [address] 2549 17 Sep, 2012 [facility] [place] [facility] [address] [id number] [place] [address] 2540 16 Sep, 2012 [facility] [place] [facility] [address] [id number] [place] [address]43 13 Dec, 2012 [facility] [place] [facility] [address] [id number] [place] [address] 9773 11 Dec, 2012 [facility] [place] [facility] [address] [id number] [place] [address] 9867 05 Dec, 2012 [facility] [place] [facility] [address] [id number] [place] [address] 1639 04 Dec, 2012 [facility] [place] [facility] [address] [id number] [place] [address]- 6797 30 Nov, 2012 [facility] [place] [facility] [address] [id number] [place] [address]- 75[address] Nov, [facility] [place] [facility] [address] [id number] [place] [address]- 2314 Nov, [facility] [place] [facility] [address] [id number] [place] [address]- 1814 Nov, [facility] [place] [facility] [address] [id number] [place] [address]- 3181 Nov, [facility] [place] [facility] [address] [id number] [place] [address] Nov, [facility] [place] [facility] [address] [id number] [place] [address]- 8622 Nov, [facility] [place] [facility] [address] [id number] [place] [address] 6751 Oct, [facility] [place] [facility] [address] [id number] [place] [address]- 6888 Oct, [facility] [place] [facility] [address] [id number] [place] [address]- 7663 Oct, [facility] [place] [facility] [address] [id number] [place] [address]- 9786 Oct, [facility] [place] [facility] [address] [id number] [place] [address]15 15 Oct, 2012 [facility] [place] [facility] [address] [id number] [place] [address]118 Oct, [facility] [address] [id number] [place] [address] 28 Sep, 2012 [facility] [place] [facility] [address] [id number] [place] [address] 0424 Sep, [facility] [address] [id number] [place] [address]- [address]118 Sep, [facility] [place] [facility] [address] [id number] [place] [address] 58[address] 14 Sep, 2012 [facility] [address] [id number] [place] [address]- 9465 13 Sep, 2012 [facility] [address] [id number] [place] [address]- 2660 Sep, [facility] [address] [id number] [place] [address]- 7[address] Sep, [facility] [address] [id number] [place] [address]- 5[address] Sep, [facility] [address] [id number] [place] [address]- 3971 Sep, [facility] [address] [id number] [place] [address]- 5[address] August, [facility] [address] [id number] [place] [address]- 50[address] August, [facility] [place] [facility] [address] [address] [id number] [place] [address] August, [facility] [place] [facility] [address] [id number] [place] [address] August, [facility] [place] [facility] [address] [id number] [place] [address] August, [facility] [place] [facility] [address] [id number] [place] [address] August, [facility] [place] [facility] [address] [id number] [place] [address] August, [facility] [address] [id number] [place] [address] August, [facility] [address] [id number] [place] [address] Jul, [facility] [address] [id number] [place] [address] Jul, [facility] [address] [place] [id number] Jul [facility] [address] [id number] [place] [address] Jun, [facility] [address] [id number] [place] [address] Jun, [facility] [address] [id number] [place] [address] Jun, [facility] [address] [id number] [place] [address] Jun, [facility] [address] [id number] [place] [address] Jun, [facility] [address] [facility] [place] [id number] [place] [address] Jun, [facility] [address] [id number] [place] [address] May, [facility] [address] [id number] [place] [address] May, [facility] [address] [id number] [place] [address] May, [facility] [address] [id number] [place] [address] May, [facility] [address] [id number] [place] [address] May, [facility] [address] [id number] [place] [address] Apr, [facility] [place] [facility] [address] [id number] [place] [address] Apr, [facility] [place] [facility] [address] [id number] [place] [address] Apr, [facility] [place] [facility] [address] [id number] [place] [address] Apr, [facility] [address] [id number] [place] [address] Apr, [facility] [address] [id number] [place] [address] 6661 Apr, [facility] [address] [id number] [place] [address] Mar, [facility] [place] [facility] [address] [id number] [place] [address] Mar, [facility] [place] [facility] [address] [id number] [place] [address] Mar, [facility] [place] [facility] [address] [id number] [place] [address] 8369 Mar, [facility] [place] [facility] [address] [id number] [place] [address] Mar, [facility] [place] [facility] [address] [id number] [address] 18 Mar, 2012 [facility] [place] [facility] [address] [id number] [place] [address] 1611 18 Mar, 2012 [facility] [place] [facility] [address] [id number] [place] [address]- [address] Mar, [facility] [place] [facility] [address] [id number] [place] [address] 10 Mar, 2012 [facility] [place] [facility] [address] [id number] [place] [address]- [address]285 05 Mar, 2012 [facility] [place] [facility] [address] [id number] [place] [address]- [address]93 05 Mar, 2012 [facility] [place] [facility] [address] [id number] [place] [address] Feb, [facility] [place] [facility] [address] [id number] [place] [address] Feb, [facility] [place] [facility] [address] [id number] [place] [address] Feb, [facility] [place] [facility] [address] [id number] [place] [address] Feb, [facility] [place] [facility] [address] [id number] [place] [address] Feb, [facility] [place] [facility] [address] [id number] [place] [address] Feb, [facility] [place] [facility] [address] [id number] [place] [address] Feb, [facility] [place] [facility] [address] [id number] [place] [address] Feb, [facility] [place] [facility] [address] [facility] [place] [id number] [place] [address] Feb, [facility] [place] [facility] [address] [id number] [place] [address] Feb, [facility] [place] [facility] [address] [id number] [address] Feb, [facility] [place] [facility] [address] [id number] [place] [address] Jan, [facility] [place] [facility] [address] [facility] [place] [id number] [place] [address] Jan, [facility] [place] [facility] [address] [facility] [place] [id number] [address] Jan, [facility] [place] [facility] [address] [id number] [place] [address]- 2841 Jan, [facility] [place] [facility] [address] [id number] [place] [address]- 1460 Jan, [facility] [place] [facility] [address] [id number] [place] [address] 1376 Jan, [facility] [place] [facility] [address] [id number] [place] [address]261 Jan, [facility] [place] [facility] [address] [id number] [place] [address] 24 Dec, 2011 [facility] [place] [facility] [address] [id number] [place] [address]- 5769 17 Dec, 2011 [facility] [place] [facility] [address] [id number] [place] [address]- 1798 13 Dec, 2011 [facility] [place] [facility] [address] [id number] [place] [address]- [address] 12 Dec, 2011 [facility] [place] [facility] [address] [id number] [place] [address]- [address] Nov, [facility] [place] [facility] [address] [id number] [place] [address]- 5846 Nov, [facility] [place] [facility] [address] [id number] [place] [address]- 4716 17 Nov, 2011 [facility] [place] [facility] [address] [id number] [place] [address]- [address]487 15 Nov, 2011 [facility] [place] [facility] [address] [id number] [place] [address]99 14 Nov, 2011 [facility] [place] [facility] [address] [id number] [place] [address]- 6912 13 Nov, 2011 [facility] [place] [facility] [address] [id number] [place] [address]- 1423 10 Nov, 2011 [facility] [place] [facility] [address] [id number] [place] [address]- 1406 Nov, [facility] [place] [facility] [address] [id number] [place] [address]- 6629 Nov, [facility] [place] [facility] [address] [id number] [place] [address]- 2086 Nov, [facility] [place] [facility] [address] [id number] [place] [address]- 0493 Nov, [facility] [place] [facility] [address] [id number] [place] [address]- 4655 Nov, [facility] [place] [facility] [address] [id number] [place] [address]- 5976 Nov, [facility] [place] [facility] [address] [id number] [place] [address]- 6408 Oct, [facility] [place] [facility] [address] [id number] [place] [address]- 5219 Oct, [facility] [place] [facility] [address] [id number] [place] [address]- 6270 Oct, [facility] [place] [facility] [address] [id number] [place] [address]- 3878 Oct, [facility] [place] [facility] [address] [id number] [place] [address]- 2642 Oct, [facility] [place] [facility] [address] [id number] [place] [address]- 8775 Oct, [facility] [place] [facility] [address] [id number] [place] [address]- 8541 Oct, [facility] [place] [facility] [address] [id number] [place] [address]- 7896 Oct, [facility] [place] [facility] [address] [id number] [place] [address]- 4554 Oct, [facility] [place] [facility] [address] [id number] [place] [address]- 9842 Sep, [facility] [place] [facility] [address] [id number] [place] [address]- 9416 Sep, [facility] [address] [id number] [place] [address]- 1225 Sep, [facility] [place] [facility] [address] [id number] [place] [address]- 1066 Sep, [facility] [address] [id number] [place] [address]- 9209 Sep, [facility] [place] [facility] [address] [id number] [place] [address]- 7845 Sep, [facility] [address] [id number] [place] [address]- 9137 Sep, [facility] [address] [id number] [place] [address]- 1871 Sep, [facility] [address] [id number] [place] [address]- 0464 August, [facility] [address] [id number] [place] [address]- 8693 August, [facility] [address] [id number] [place] [address]- 5550 August, [facility] [address] [id number] [place] [address]- 6212 August, [facility] [place] [facility] [address] [id number] [place] [address]- 1672 August, [facility] [address] [id number] [place] [address]- 3644 August, [facility] [place] [facility] [address] [id number] [place] [address]- 6943 August, [facility] [place] [facility] [address] [id number] [place] [address]- 0532 August, [facility] [address] [id number] [place] [address]- [address] August, [facility] [address] [facility] [place] [id number] [place] [address]- [address] August, [facility] [address] [facility] [place] [id number] [address]26 August, [facility] [address] [facility] [place] [id number] [place] [address]- [address]442 August, [facility] [address] [facility] [place] 2[facility] [id number] [address] Oct, IMMUNIZATIONS No Known Immunizations SOCIAL HISTORY Never Assessed REASON FOR VISIT Requests Return Call PLAN OF CARE VITAL SIGNS MEDICATIONS Unknown [...] Hospitalization History suicidal ideations-[place] 12/28 Hospitalization History hypoxia--[facility] 02/13/2016 Hospitalization History shortness of breath at june 2016 Hospitalization History Shortness of breath at august 2016 Hospitalization History SOB, chest pain at 12/2016
--- OUTSIDE RECORDS SUMMARY | 2017-11-24 18:17 | XMS REPORT ---
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 [address] [id number] [place] [address] 73592- 6385 Jun, Type 2 diabetes mellitus with hyperglycemia E11.65 [facility] [address], [place] [address]- 9305 May, Unspecified mood [affective] disorder F39 [facility] [address] [facility] [id number], [place] [address]- 3797 May, [facility] [id number] [place] [address] 44730- 4551 May, [facility] [id number] [place] [address] 08849- 9757 May, [facility] [id number] [place] [address] 46085- 3698 Apr, [facility] [address] [place] [address] 16169- 7675 Apr, Unspecified mood [affective] disorder F39 [facility] [address] [place] [address] 83421- 9409 Apr, [facility] [id number] [place] [address] 50611- 8417 Apr, [facility] [address] [place] [address] 97403- 0246 Apr, [facility] [address], [place] [address]- 1571 Apr, Dysuria R30.0 and Well woman exam (no gynecological exam) Z00.00 [facility] [address], [place] [address]- 6922 Mar, [facility] [id number] [place] [address] 70481- 4817 Mar, [facility] [address] [id number] Mar, Dental examination Z01.20 [facility] [address] [place] [address] 17643- 4501 Mar, Chronic diarrhea K52.9 ; Intractable vomiting with nausea, vomiting of unspecified type R11.2 ; Cellulitis, unspecified cellulitis site L03.90 ; Type 2 diabetes mellitus with diabetic polyneuropathy E11.42 and Postinflammatory hyperpigmentation L81.0 [facility] [address], [place] [address]- 8250 Mar, Unspecified mood [affective] disorder F39 [facility] [address], [place] [address]- 5363 Mar, Unspecified mood [affective] disorder F39 [facility] [address] [place] [address] 96596- 3768 Mar, [facility] [id number] [place] [address] 77474- 9557 Mar, [facility] [id number] [place] [address] 57328- 2381 Mar, [facility] [address], [place] [address]- 3074 Mar, [facility] [address] [place] [address] 17680- 2334 Mar, [facility] [address], [place] [address]- 6743 Mar, [facility] [address], [place] [address]- 8301 Feb, Unspecified mood [affective] disorder F39 [facility] [address], [place] [address]- 3055 Feb, [facility] [address], [place] [address]- 1996 Feb, [facility] [address], [place] [address]- 2312 Jan, Unspecified mood [affective] disorder [address] [place] [id number] [id number] Jan, Encounter for dental examination Z01.20 [facility] [id number] [place] [address] 96519- 5452 Jan, [facility] [id number] [place] [address] 54878- 6387 Jan, [facility] [id number] [place] [address] 26253- 3666 Jan, [facility] [id number] [place] [address] 78586- 6817 Jan, [facility] [address] 25081- 1395 Jan, [facility] [id number] [place] [address] 71751- 2263 Jan, Abdominal abscess K65.1 and Dental caries K02.9 [facility] [id number] [place] [address] 14885- 7065 Jan, [facility] [id number] [place] [address] 97497- 7050 30 Dec, 2014 Diabetes with neurological manifestations, type II or unspecified type, not stated as uncontrolled 250.60 ; Essential hypertension, benign 401.1 ; Concussion 850.9 and Skin texture changes 782.8 [facility] [id number] [place] [address] 61106- 9712 Dec, [facility] [id number] [place] [address] 93874- 1546 Dec, [facility] [id number] [place] [address] 30693- 7643 Dec, [facility] [id number] [place] [address] 72910- 8513 Dec, [facility] [id number] [place] [address] 94167- 8859 17 Dec, [address] [facility] [address], [place] [address] 2546 14 Dec, 2014 [facility] [address], [place] [address] 2546 10 Dec, [address] [facility] [address], [place] [address] 2546 04 Dec, 2014 [facility] [address], [place] [address]- 2546 [address], [address] [facility] [address], [place] [address]- 2546 [address], [address] [facility] [address] [place] [address] 28563 2546 Dec, 2014 [facility] [address], [place] [address] 2546 Nov, Affective disorder 296.90 [facility] [address], [place] [address] 2546 Nov, [facility] [address], [place] [address] 2546 Nov, Affective disorder 296.90 [facility] [address], [place] [address] 2546 Nov, Diarrhea 787.91 [facility] [address], [place] [address] 2546 Nov, [facility] [address], [place] [address] 2546 Nov, Diarrhea 787.91 [facility] [address] [place] [address] 32877 2546 Nov, Diarrhea 787.[address] [facility] [address], [place] [address] 2546 Nov, Diarrhea 787.91 [facility] [id number], [place] [address]- 9808 Nov, Affective disorder 296.90 [facility] [address], [place] [address]- 3755 Nov, Affective disorder 296.90 [facility] [address], [place] [address]- 9245 17 Nov, [address] [facility] [address], [place] [address]- 5451 Nov, [facility] [address] [address]- 7548 Nov, [facility] [address], [place] [address]- 3543 Nov, [facility] [address], [place] [address]- 3668 Nov, Episodic mood disorder 296.90 [facility] [address], [place] [address]- 3653 Nov, [facility] [address] [address]- 6937 Nov, [facility] [address] [address]- 3388 Nov, [facility] [address] [address]- 9003 Nov, [facility] [address], [place] [address]- 8446 Nov, [facility] [address], [place] [address]- 6614 Nov, Lymphedema 457.1 ; Hyperlipidemia 272.4 ; Essential hypertension, benign 401.1 and Numbness of toes 782.0 [facility] [address], [place] [address]- 4008 Nov, Episodic mood disorder 296.90 [facility] [id number] [place] [address]- 7004 27 Oct, 2014 [facility] [address] [id number] [place] [address]- 8166 Oct, 2014 [facility] [address] [facility] [id number] [place] [address]- 4926 Oct, 2014 [facility] [address] [facility] [id number] [place] [address]- 2476 Oct, 2014 [facility] [address] [facility] [id number] [place] [address]- 8894 Oct, 2014 [facility] [address] [facility] [id number] [place] [address]- 7606 Oct, 2014 [facility] [address] [facility] [id number] [place] [address]- 6458 Oct, 2014 [facility] [id number] [place] [address]- 0305 Oct, 2014 [facility] [address] [facility] [id number] [place] [address]- 1094 Oct, Episodic mood disorder 296.90 [facility] [address] [id number] [place] [address]- 4963 Sep, [facility] [id number] [place] [address]- 0040 Sep, [facility] [address] [facility] [id number], [place] [address]- 1930 Sep, [facility] [address] [facility] [id number], [place] [address]- 0591 Sep, [facility] [address] [facility] [id number] [place] [address]- 6650 Sep, [facility] [address] [facility] [id number] [place] [address]- 8749 Sep, Episodic mood disorder 296.90 [facility] [id number], [place] [address]- 8440 Sep, Unspecified episodic mood disorder 296.90 [facility] [address], [place] [address]- 3112 Sep, [facility] [address], [place] [address]- 4303 Sep, [facility] [address] [place] [address] 94821- 9546 Sep, Episodic mood disorder 296.90 [facility] [address] [place] [address] 63527- 9242 Sep, [facility] [id number] [place] [address] 36204- 1052 Sep, [facility] [id number] [place] [address] 58690- 2288 Sep, [facility] [id number] [place] [address] 24469- 5673 Sep, Hematemesis 578.[address] [facility] [id number] [address] Sep, Episodic mood disorder 296.90 [facility] [id number] [address] Sep, [facility] [id number] [place] [address] Sep, [facility] [id number], [place] [address] Sep, Diabetes mellitus without mention of complication, type II or unspecified type, not stated as uncontrolled 250.00 and Other chronic pain 338.29 [facility] [id number], [place] [address] Sep, Episodic mood disorder 296.90 [facility] [id number], [place] [address] Sep, [facility] [address] [facility] [id number] [place] [address]- [address]267 Sep, Episodic mood disorder 296.90 [facility] [address] [facility] [id number] [place] [address]- [address] Sep, [facility] [address] [facility] [id number] [place] [address] August, [facility] [address] [facility] [id number] [place] [address] August, [facility] [address] [facility] [id number] [place] [address]- 6228 August, Episodic mood disorder 296.90 [facility] [id number] [place] [address] August, [facility] [id number] [place] [address]277 August, Unspecified episodic mood disorder 296.90 [facility] [address] [id number] [place] [address]- [address] August, Vomiting 787.03 [facility] [id number] [place] [address]17 August, [facility] [id number] [address] August, [facility] [id number] [place] [address] 134[address] August, [facility] [id number] [address] August, [facility] [address] [id number] [place] [address] 6626 August, [facility] [address] [facility] [id number] [id number]88 Jul, [facility] [address] [id number] [place] [address]- [address] Jul, [facility] [place] [facility] [address] [id number] [place] [address]- [address] 13 Jul, 2014 [facility] [place] [facility] [address] [id number] [place] [address]- [address] 30 Jun, 2014 [facility] [place] [facility] [address] [id number] [place] [address]- 8257 30 Jun, 2014 [facility] [place] [facility] [address] [id number] [place] [address]- 9586 30 Jun, 2014 [facility] [place] [facility] [address] [id number] [place] [address]- 8385 30 Jun, 2014 [facility] [place] [facility] [address] [id number] [place] [address]- 2078 30 Jun, 2014 [facility] [place] [facility] [address] [id number] [place] [address]- [address] 30 Jun, 2014 [facility] [place] [facility] [address] [id number] [place] [address]- 9913 30 Jun, 2014 [facility] [place] [facility] [address] [id number] [place] [address] 30 Jun, 2014 [facility] [place] [facility] [address] [id number] [place] [address]287 Jun, [facility] [place] [facility] [address] [id number] [place] [address] 6241 Jun, [facility] [place] [facility] [address] [id number] [place] [address]- 4788 Jun, [facility] [place] [facility] [address] [id number] [place] [address]- 1649 Jun, [facility] [place] [facility] [address] [id number] [place] [address] Jun, [facility] [place] [facility] [address] [id number] [place] [address] 1926 Jun, [facility] [place] [facility] [address] [id number] [place] [address]- 8979 24 Jun, 2014 [facility] [place] [facility] [address] [id number] [place] [address]- 2895 23 Jun, 2014 [facility] [place] [facility] [address] [id number] [place] [address]- 2896 23 Jun, 2014 [facility] [place] [facility] [address] [id number] [place] [address]- 1743 23 Jun, 2014 [facility] [place] [facility] [address] [id number] [place] [address]- 0019 23 Jun, 2014 [facility] [place] [facility] [address] [id number] [place] [address]- 4813 21 Jun, 2014 [facility] [place] [facility] [address] [id number] [place] [address]- 4093 21 Jun, 2014 [facility] [place] [facility] [address] [id number] [place] [address]- 1521 20 Jun, 2014 [facility] [place] [facility] [address] [id number] [place] [address]- 5314 20 Jun, 2014 [facility] [place] [facility] [address] [id number] [place] [address]- 9558 20 Jun, 2014 [facility] [place] [facility] [address] [id number] [place] [address]- 4821 20 Jun, 2014 [facility] [place] [facility] [address] [id number] [place] [address]- 5093 19 Jun, 2014 [facility] [place] [facility] [address] [id number] [place] [address]- 6531 19 Jun, 2014 [facility] [place] [facility] [address] [id number] [place] [address]- 5528 18 Jun, 2014 [facility] [place] [facility] [address] [id number] [place] [address]- 3043 18 Jun, 2014 [facility] [place] [facility] [address] [id number] [place] [address]- 8264 17 Jun, 2014 [facility] [place] [facility] [address] [id number] [place] [address]- 1136 17 Jun, 2014 [facility] [place] [facility] [address] [id number] [place] [address]- 3666 16 Jun, 2014 [facility] [place] [facility] [address] [id number] [place] [address]- 1366 16 Jun, 2014 [facility] [place] [facility] [address] [id number] [place] [address]- 6076 16 Jun, 2014 [facility] [place] [facility] [address] [id number] [place] [address]- 0415 16 Jun, 2014 [facility] [place] [facility] [address] [id number] [place] [address]- 3294 16 Jun, 2014 [facility] [place] [facility] [address] [id number] [place] [address]- 9009 16 Jun, 2014 [facility] [place] [facility] [address] [id number] [place] [address]- 9873 13 Jun, 2014 [facility] [place] [facility] [address] [id number] [place] [address]- 4147 13 Jun, 2014 [facility] [place] [facility] [address] [id number] [place] [address]- 4751 12 Jun, 2014 [facility] [place] [facility] [address] [id number] [place] [address]- 3466 12 Jun, 2014 [facility] [place] [facility] [address] [id number] [place] [address]- 6709 Jun, 2014 [facility] [place] [facility] [address] [id number] [place] [address]- 2709 Jun, 2014 [facility] [place] [facility] [address] [id number] [place] [address]- 4738 Jun, 2014 [facility] [place] [facility] [address] [id number] [place] [address]- 3666 Jun, 2014 [facility] [place] [facility] [address] [id number] [place] [address]- 9680 Jun, [facility] [place] [facility] [address] [id number] [place] [address]- 9497 Jun, [facility] [place] [facility] [address] [id number] [place] [address]- 4455 Jun, [facility] [place] [facility] [address] [id number] [place] [address]- 6235 Jun, [facility] [place] [facility] [address] [id number] [place] [address]- 0254 Jun, [facility] [place] [facility] [address] [id number] [place] [address]- 8583 Jun, [facility] [place] [facility] [address] [id number] [place] [address]- 9580 Jun, [facility] [place] [facility] [address] [id number] [place] [address]- 9529 Jun, [facility] [place] [facility] [address] [id number] [place] [address]- 3840 Jun, [facility] [place] [facility] [address] [id number] [place] [address]- 4976 Jun, [facility] [place] [facility] [address] [id number] [place] [address]- 2567 Jun, [facility] [place] [facility] [address] [id number], [place] [address]- 8436 Jun, [facility] [place] [facility] [address] [id number], [place] [address]- 0148 May, [facility] [place] [facility] [address] [id number] [place] [address]- 9273 May, [facility] [place] [facility] [address] [id number] [place] [address]- 3014 May, [facility] [place] [facility] [address] [id number] [place] [address]- 2693 May, [facility] [place] [facility] [address] [id number] [place] [address] 2544 24 May, 2014 [facility] [place] [facility] [address] [id number] [place] [address] 2546 24 May, 2014 [facility] [place] [facility] [address] [id number] [place] [address]- 2546 20 May, 2014 [facility] [place] [facility] [address] [id number] [place] [address]- 3086 20 May, 2014 [facility] [place] [facility] [address] [id number] [place] [address]- 2543 20 May, 2014 [facility] [place] [facility] [address] [id number] [place] [address]- 5410 20 May, 2014 [facility] [place] [facility] [address] [facility] [id number] [place] [address]- 7452 18 May, 2014 [facility] [place] [facility] [address] [facility] [id number] [place] [address]- 0624 18 May, 2014 [facility] [place] [facility] [address] [facility] [id number] [place] [address]- 0525 13 May, 2014 [facility] [place] [facility] [address] [facility] [id number] [place] [address]- 4521 13 May, 2014 [facility] [place] [facility] [address] [id number] [place] [address]- 6095 11 May, 2014 [facility] [place] [facility] [address] [facility] [id number], [place] [address]- 2544 11 May, 2014 [facility] [place] [facility] [address] [facility] [id number] [place] [address]- 2546 11 May, 2014 [facility] [place] [facility] [address] [facility] [id number] [place] [address]- 2546 11 May, 2014 [facility] [place] [facility] [address] [facility] [id number] [place] [address]- 2546 09 May, 2014 [facility] [place] [facility] [address] [facility] [id number] [place] [address]- 9526 May, 2014 [facility] [place] [facility] [address] [id number] [place] [address]- 9126 May, 2014 [facility] [place] [facility] [address] [id number] [place] [address]- 3896 May, 2014 [facility] [place] [facility] [address] [id number] [place] [address]- 3796 May, 2014 [facility] [place] [facility] [address] [id number] [place] [address]- 2545 May, 2014 [facility] [place] [facility] [address] [id number] [place] [address]- 3694 May, 2014 [facility] [place] [facility] [address] [id number] [place] [address]- 8229 May, 2014 [facility] [place] [facility] [address] [id number] [place] [address]- 0389 May, 2014 [facility] [place] [facility] [address] [id number], [place] [address]- 7232 Apr, [facility] [place] [facility] [address] [id number] [place] [address]- 4812 Apr, [facility] [place] [facility] [address] [facility] [id number] [place] [address]- 0556 Apr, [facility] [place] [facility] [address] [id number] [place] [address]- 2512 Apr, [facility] [place] [facility] [address] [id number], [place] [address]- 7948 Apr, [facility] [place] [facility] [address] [id number] [place] [address]- 9942 Apr, [facility] [place] [facility] [address] [id number] [place] [address]- 4872 Apr, [facility] [place] [facility] [address] [id number], [place] [address]- 7526 Apr, [facility] [place] [facility] [address] [id number] [place] [address]- 4270 Apr, [facility] [place] [facility] [address] [id number] [place] [address]- 1738 Apr, [facility] [place] [facility] [address] [id number] [place] [address]- 2484 Apr, [facility] [place] [facility] [address] [id number] [place] [address]- 6027 Apr, [facility] [place] [facility] [address] [id number] [place] [address]- 9007 Apr, [facility] [place] [facility] [address] [id number] [place] [address]- 5123 Apr, [facility] [place] [facility] [address] [id number] [place] [address]- 5005 Apr, [facility] [place] [facility] [address] [id number] [place] [address]- 8774 Apr, [facility] [place] [facility] [address] [id number] [place] [address]- 2395 Apr, [facility] [place] [facility] [address] [id number] [place] [address]- 8435 Apr, [facility] [place] [facility] [address] [id number] [place] [address]- 2707 Apr, [facility] [place] [facility] [address] [id number], [place] [address]- 2829 Apr, [facility] [place] [facility] [address] [id number] [place] [address]- 6523 Mar, [facility] [place] [facility] [address] [id number] [place] [address]- 8569 Mar, [facility] [place] [facility] [address] [id number] [place] [address]- 6457 Mar, [facility] [place] [facility] [address] [id number] [place] [address]- 9346 24 Mar, 2014 [facility] [place] [facility] [address] [id number] [place] [address]- 1583 Mar, [facility] [place] [facility] [address] [id number] [place] [address]- 1228 Mar, [facility] [place] [facility] [address] [id number] [place] [address]- 9966 18 Mar, 2014 [facility] [place] [facility] [address] [id number] [place] [address]- 0394 18 Mar, 2014 [facility] [place] [facility] [address] [id number] [place] [address]- 6863 15 Mar, 2014 [facility] [place] [facility] [address] [id number] [place] [address]- 3925 15 Mar, 2014 [facility] [place] [facility] [address] [id number] [place] [address]- 2213 15 Mar, 2014 [facility] [place] [facility] [address] [id number] [place] [address]- 4032 15 Mar, 2014 [facility] [place] [facility] [address] [id number] [place] [address]- 1886 Mar, [facility] [place] [facility] [address] [id number] [place] [address]- 0681 Mar, [facility] [place] [facility] [address] [id number] [place] [address]- 7782 Mar, [facility] [place] [facility] [address] [id number] [place] [address]- 6025 Mar, [facility] [place] [facility] [address] [id number] [place] [address]- 5867 Feb, [facility] [place] [facility] [address] [id number] [place] [address]- 0040 Feb, [facility] [place] [facility] [address] [id number] [place] [address]- 3860 Feb, [facility] [place] [facility] [address] [id number] [place] [address]- 9780 20 Feb, 2014 [facility] [place] [facility] [address] [id number] [place] [address]- 8288 20 Feb, 2014 [facility] [place] [facility] [address] [id number] [place] [address]- 7292 19 Feb, 2014 [facility] [place] [facility] [address] [id number] [place] [address]- 8803 19 Feb, 2014 [facility] [place] [facility] [address] [id number] [place] [address]- 8394 18 Feb, 2014 [facility] [place] [facility] [address] [id number] [place] [address]- 5160 18 Feb, 2014 [facility] [place] [facility] [address] [id number] [place] [address]- 1279 17 Feb, 2014 [facility] [place] [facility] [address] [id number] [place] [address]- 4522 17 Feb, 2014 [facility] [place] [facility] [address] [id number] [place] [address]- 4780 17 Feb, 2014 [facility] [place] [facility] [address] [id number] [place] [address]- 0567 17 Feb, 2014 [facility] [place] [facility] [address] [id number] [place] [address]- 7319 14 Feb, 2014 [facility] [place] [facility] [address] [id number] [place] [address]- 9004 14 Feb, 2014 [facility] [place] [facility] [address] [id number] [place] [address]- 4302 14 Feb, 2014 [facility] [place] [facility] [address] [id number] [place] [address]- 5471 14 Feb, 2014 [facility] [place] [facility] [address] [id number] [place] [address]- 8673 10 Feb, 2014 [facility] [place] [facility] [address] [id number] [place] [address]- 8379 Feb, [facility] [place] [facility] [address] [id number] [place] [address]- 0594 Feb, [facility] [place] [facility] [address] [id number] [place] [address]- 4574 Feb, [facility] [place] [facility] [address] [id number] [place] [address]- 2653 Jan, [facility] [place] [facility] [address] [id number] [place] [address]- 7368 Jan, [facility] [place] [facility] [address] [id number] [place] 2047 Jan, [facility] [place] [facility] [address] [id number] [place] [address]- 5593 Jan, [facility] [place] [facility] [address] [id number] [place] [address]- 1513 Jan, [facility] [place] [facility] [address] [id number], [place] [address]- 2597 Jan, [facility] [place] [facility] [address] [id number] [place] [address]- 3313 Jan, [facility] [place] [facility] [address] [id number] [place] [address]- 9367 Jan, [facility] [place] [facility] [address] [id number], [place] [address]- 8318 Jan, [facility] [place] [facility] [address] [id number], [place] [address]- 1412 Jan, [facility] [place] [facility] [address] [id number] [place] 8209 Jan, [facility] [place] [facility] [address] [id number], [place] [address]- 7647 Jan, [facility] [place] [facility] [address] [id number][place] 1862 Jan, [facility] [place] [facility] [address] [id number] [place] [address]- 4974 17 Jan, 2014 [facility] [place] [facility] [address] [id number] [place] [address]- 9485 15 Jan, 2014 [facility] [place] [facility] [address] [id number] [place] [address]- 7549 15 Jan, 2014 [facility] [place] [facility] [address] [id number] [place] [address]- 7783 14 Jan, 2014 [facility] [place] [facility] [address] [id number] [place] [address]- 4172 14 Jan, 2014 [facility] [place] [facility] [address] [id number] [place] [address]- 0790 13 Jan, 2014 [facility] [place] [facility] [address] [id number] [place] [address]- 5766 13 Jan, 2014 [facility] [place] [facility] [address] [id number] [place] [address]- 5563 13 Jan, 2014 [facility] [place] [facility] [address] [id number] [place] [address]- 4133 13 Jan, 2014 [facility] [place] [facility] [address] [id number] [place] [address]- 5356 10 Jan, 2014 [facility] [place] [facility] [address] [id number] [place] [address]- 1704 02 Jan, 2014 [facility] [place] [facility] [address] [id number] [place] [address]- 8551 Jan, [facility] [place] [facility] [address] [id number] [place] [address]- 2435 Dec, [facility] [place] [facility] [address] [id number] [place] [address]- 8016 Dec, [facility] [place] [facility] [address] [id number] [place] [address]- 8603 Dec, [facility] [place] [facility] [address] [id number] [place] [address]- 4419 Dec, 2013 [facility] [place] [facility] [address] [id number] [place] [address]- 5102 19 Sep, 2013 [facility] [place] [facility] [address] [id number] [place] [address]- 7550 19 Sep, 2013 [facility] [place] [facility] [address] [id number] [place] [address]- 8206 17 Sep, 2013 [facility] [place] [facility] [address] [id number] [place] [address]- 4509 17 Sep, 2013 [facility] [place] [facility] [address] [id number] [place] [address]- 7100 09 Sep, 2013 [facility] [place] [facility] [address] [id number] [place] [address]- 9137 09 Sep, 2013 [facility] [place] [facility] [address] [id number] [place] [address]- 9550 08 Sep, 2013 [facility] [place] [facility] [address] [id number] [place] [address]- 3923 08 Sep, 2013 [facility] [place] [facility] [address] [id number] [place] [address]- 0118 04 Sep, 2013 [facility] [place] [facility] [address] [id number] [place] [address]- 6913 04 Sep, 2013 [facility] [place] [facility] [address] [id number] [place] [address]- 8885 02 Sep, 2013 [facility] [place] [facility] [address] [id number] [place] [address]- 2541 02 Sep, 2013 [facility] [place] [facility] [address] [id number] [place] [address]- 2542 Sep, 2013 [facility] [place] [facility] [address] [id number] [place] [address]- 2545 Dec, 2013 [facility] [place] [facility] [address] [id number] [place] [address]- 5009 Nov, 2013 [facility] [place] [facility] [address] [id number] [place] [address]- 7698 Nov, [facility] [place] [facility] [address] [id number] [place] [address]- 5184 Nov, [facility] [place] [facility] [address] [id number] [place] [address]- 6102 Nov, [facility] [place] [facility] [address] [id number] [place] [address]- 2159 Nov, [facility] [place] [facility] [address] [id number] [place] [address]- 3380 Nov, [facility] [place] [facility] [address] [id number] [place] [address]- 4449 Nov, [facility] [place] [facility] [address] [id number] [place] [address]- 3118 Nov, [facility] [place] [facility] [address] [id number] [place] [address]- 4648 Nov, [facility] [place] [facility] [address] [id number] [place] [address]- 9267 Nov, [facility] [place] [facility] [address] [id number] [place] [address]- 2815 Nov, [facility] [place] [facility] [address] [id number] [place] [address] Nov, [facility] [place] [facility] [address] [id number] [place] [address] Oct, [facility] [place] [facility] [address] [id number] [place] [address] Oct, [facility] [place] [facility] [address] [id number] [place] [address] Oct, [facility] [place] [facility] [address] [id number] [place] [address]44 Oct, [facility] [place] [facility] [address] [id number] [place] [address]761 Oct, [facility] [place] [facility] [address] [id number] [place] [address] 24 Oct, 2013 [facility] [place] [facility] [address] [id number] [place] [address] Oct, [facility] [place] [facility] [address] [id number] [place] [address] Oct, [facility] [place] [facility] [address] [id number] [place] [address] 9470 Oct, [facility] [place] [facility] [address] [id number] [place] [address] 265[address] Oct, [facility] [place] [facility] [address] [id number] [place] [address] Oct, [facility] [place] [facility] [address] [id number] [place] [address] 4425 16 Oct, 2013 [facility] [place] [facility] [address] [id number] [place] [address] 99[address] Oct, [facility] [place] [facility] [address] [id number] [place] [address] 14 Oct, 2013 [facility] [place] [facility] [address] [id number] [place] [address] 4287 Oct, [facility] [place] [facility] [address] [id number] [place] [address]139 Oct, [facility] [place] [facility] [address] [id number] [place] [address]125 Oct, [facility] [place] [facility] [address] [id number] [place] [address] Sep, [facility] [place] [facility] [address] [id number] [place] [address]- [address]265 Sep, [facility] [place] [facility] [address] [id number] [place] [address] 7184 Sep, [facility] [place] [facility] [address] [id number] [place] [address]- 0771 Sep, [facility] [place] [facility] [address] [id number] [place] [address]- 1171 18 Sep, 2013 [facility] [place] [facility] [address] [id number] [place] [address]- [address] 18 Sep, 2013 [facility] [place] [facility] [address] [id number] [place] [address]- 3628 17 Sep, 2013 [facility] [place] [facility] [address] [id number] [place] [address] Sep, [facility] [place] [facility] [address] [id number] [place] [address]- 6535 Sep, [facility] [place] [facility] [address] [id number] [place] [address]- 6528 Sep, [facility] [place] [facility] [address] [id number] [place] [address]- 1760 Sep, [facility] [place] [facility] [address] [id number] [place] [address] 1703 Sep, [facility] [place] [facility] [address] [id number] [place] [address] 9221 Sep, [facility] [place] [facility] [address] [id number] [place] [address] 9756 Sep, [facility] [place] [facility] [address] [id number] [place] [address] 0662 Sep, [facility] [place] [facility] [address] [id number] [place] [address] 3427 Sep, [facility] [place] [facility] [address] [id number] [place] [address] 6747 Sep, [facility] [place] [facility] [address] [id number] [place] [address]- [address]198 07 Sep, 2013 [facility] [place] [facility] [address] [id number] [place] [address]- [address]246 05 Sep, 2013 [facility] [place] [facility] [address] [id number] [place] [address] 99[address] Sep, [facility] [address] [id number] [place] [address] 5761 Sep, [facility] [place] [facility] [address] [id number] [place] [address] Sep, [facility] [place] [facility] [address] [id number] [place] [address]- 450[address] August, [facility] [place] [facility] [address] [id number] [place] [address]- 0935 August, [facility] [place] [facility] [address] [id number] [place] [address]- 2933 August, [facility] [place] [facility] [address] [id number] [place] [address] 2958 August, [facility] [address] [id number] [place] [address] 7916 August, [facility] [place] [facility] [address] [id number] [place] [address] 4464 August, [facility] [place] [facility] [address] [id number] [place] [address]- 4[address] August, [facility] [place] [facility] [address] [id number] [place] [address] 2684 August, [facility] [place] [facility] [address] [id number] [place] [address] 2192 August, [facility] [place] [facility] [address] [id number] [place] [address] 2076 August, [facility] [place] [facility] [address] [id number] [place] [address] 3959 August, [facility] [place] [facility] [address] [id number] [place] [address]- 2345 Jul, [facility] [place] [facility] [address] [id number] [place] [address] 3039 Jul, [facility] [place] [facility] [address] [id number] [place] [address]- 3313 25 Jul, 2013 [facility] [place] [facility] [address] [id number] [place] [address]- 2296 25 Jul, 2013 [facility] [place] [facility] [address] [id number] [place] [address]- 8775 23 Jul, 2013 [facility] [place] [facility] [address] [id number] [place] [address]- 2564 23 Jul, 2013 [facility] [place] [facility] [address] [id number] [place] [address]- 6441 Jul, [facility] [place] [facility] [address] [id number] [place] [address]- 7053 Jul, [facility] [place] [facility] [address] [id number] [place] [address]- 4958 18 Jul, 2013 [facility] [place] [facility] [address] [id number] [place] [address]- 9960 18 Jul, 2013 [facility] [place] [facility] [address] [id number] [place] [address]- 6579 16 Jul, 2013 [facility] [place] [facility] [address] [id number] [place] [address]- 5489 14 Jul, 2013 [facility] [place] [facility] [address] [id number] [place] [address]- 6365 14 Jul, 2013 [facility] [place] [facility] [address] [id number] [place] [address]- 3292 11 Jul, 2013 [facility] [place] [facility] [address] [id number] [place] [address]- 5768 11 Jul, 2013 [facility] [place] [facility] [address] [id number] [place] [address]- 3402 10 Jul, 2013 [facility] [place] [facility] [address] [id number] [place] [address]- 7993 10 Jul, 2013 [facility] [place] [facility] [address] [id number] [place] [address]- 0588 Jul, [facility] [place] [facility] [address] [id number] [place] [address]- 2105 Jul, [facility] [place] [facility] [address] [id number] [place] [address]- 9266 Jul, [facility] [place] [facility] [address] [id number] [place] [address]- 1378 Jul, [facility] [place] [facility] [address] [id number] [place] [address]- 0147 Jul, [facility] [place] [facility] [address] [id number] [place] [address]- 0160 Jul, [facility] [place] [facility] [address] [id number] [place] [address]- 8346 Jun, [facility] [place] [facility] [address] [id number] [place] [address]- 6098 Jun, [facility] [place] [facility] [address] [id number] [place] [address] Jun, [facility] [place] [facility] [address] [id number] [place] [address] Jun, [facility] [place] [facility] [address] [id number] [place] [address] Jun, [facility] [place] [facility] [address] [id number] [place] [address] 4[address] Jun, [facility] [place] [facility] [address] [id number] [place] [address] 0127 Jun, [facility] [place] [facility] [address] [id number] [place] [address]336 Jun, [facility] [place] [facility] [address] [id number] [place] [address] 0150 Jun, [facility] [place] [facility] [address] [id number] [place] [address]- 4[address] Jun, [facility] [place] [facility] [address] [id number] [place] [address] 6174 17 Jun, 2013 [facility] [address] [id number] [place] [address] 3627 Jun, [facility] [place] [facility] [address] [id number] [place] [address] 0993 May, [facility] [address] [id number] [place] [address] 2604 May, [facility] [place] [facility] [address] [id number] [place] [address]- 1412 Apr, [facility] [address] [id number] [place] [address]- 6509 Apr, [facility] [address] [id number] [place] [address] 8976 Apr, [facility] [address] [id number] [place] [address] 6942 Apr, [facility] [address] [id number] [place] [address] 1000 Apr, [facility] [place] [facility] [address] [id number] [place] [address]- 1712 Apr, [facility] [address] [id number] [place] [address] 3651 Apr, [facility] [place] [facility] [address] [id number] [place] [address]- 5055 Apr, [facility] [place] [facility] [address] [id number] [place] [address] 5[address] Apr, [facility] [place] [facility] [address] [id number] [place] [address]- 0433 Apr, [facility] [place] [facility] [address] [id number] [place] [address]- 1766 Apr, [facility] [place] [facility] [address] [id number] [place] [address] 6129 Mar, [facility] [address] [id number] [place] [address] 3858 Mar, [facility] [place] [facility] [address] [id number] [place] [address]- 9746 Mar, [facility] [place] [facility] [address] [id number] [place] [address] Mar, [facility] [place] [facility] [address] [id number] [place] [address]- 7515 Feb, [facility] [place] [facility] [address] [id number] [place] [address]- 3517 Feb, [facility] [place] [facility] [address] [id number] [place] [address]- 3628 Feb, [facility] [place] [facility] [address] [id number] [place] [address]- 6460 Feb, [facility] [place] [facility] [address] [id number], [place] [address] 6[address] Feb, [facility] [place] [facility] [address] [id number], [place] [address]- 1529 Feb, [facility] [place] [facility] [address] [facility] [id number], [place] [address]- 9005 Feb, [facility] [place] [facility] [address] [facility] [id number], [place] [address]- 7383 Feb, [facility] [place] [facility] [address] [id number], [place] [address]- 5620 Feb, [facility] [place] [facility] [address] [id number], [place] [address] 8029 Feb, [facility] [place] [facility] [address] [id number], [place] [address] 0559 Feb, [facility] [place] [facility] [address] [facility] [id number], [place] [address]- 9517 Jan, [facility] [place] [facility] [address] [id number], [place] [address]- 1041 25 Jan, 2013 [facility] [place] [facility] [address] [id number] [place] [address]- 3428 11 Jan, 2013 [facility] [place] [facility] [address] [id number] [place] [address]- 3973 11 Jan, 2013 [facility] [place] [facility] [address] [id number] [place] [address]- 8735 10 Jan, 2013 [facility] [place] [facility] [address] [id number] [place] [address]- 0788 10 Jan, 2013 [facility] [place] [facility] [address] [id number] [place] [address]- 8480 03 Jan, 2013 [facility] [place] [facility] [address] [id number] [place] [address]- 6259 02 Jan, 2013 [facility] [place] [facility] [address] [id number] [place] [address]- 1023 30 Sep, 2012 [facility] [place] [facility] [address] [id number] [place] [address]- 3244 25 Sep, 2012 [facility] [place] [facility] [address] [id number] [place] [address]- 6987 18 Sep, 2012 [facility] [place] [facility] [address] [facility] [id number] [place] [address]- 2641 17 Sep, 2012 [facility] [place] [facility] [address] [id number], [place] [address] 2549 17 Sep, 2012 [facility] [place] [facility] [address] [id number], [place] [address]- 2544 16 Sep, 2012 [facility] [place] [facility] [address] [id number] [place] [address]- 2547 13 Sep, 2012 [facility] [place] [facility] [address] [facility] [id number] [place] [address]- 254 11 Sep, 2012 [facility] [place] [facility] [address] [facility] [id number] [place] [address]- 0631 05 Sep, 2012 [facility] [place] [facility] [address] [id number] [place] [address]- 8185 Dec, [facility] [place] [facility] [address] [id number] [place] [address] 3322 Nov, [facility] [place] [facility] [address] [id number] [place] [address]- 4775 Nov, [facility] [place] [facility] [address] [id number] [place] [address]- 5710 Nov, [facility] [place] [facility] [address] [id number] [place] [address]- 9678 Nov, [facility] [place] [facility] [address] [id number] [place] [address]- 4225 Nov, [facility] [place] [facility] [address] [id number] [place] [address]- 2220 Nov, [facility] [place] [facility] [address] [id number] [place] [address]- 7786 Nov, [facility] [place] [facility] [address] [id number] [place] [address]- 6651 Oct, [facility] [place] [facility] [address] [id number] [place] [address]- 2996 Oct, [facility] [place] [facility] [address] [id number] [place] [address]- 6151 Oct, [facility] [place] [facility] [address] [id number] [place] [address]- 8749 Oct, [facility] [place] [facility] [address] [id number] [place] [address]- 4066 Oct, [facility] [place] [facility] [address] [id number] [place] [address]- 7169 Oct, [facility] [place] [facility] [address] [id number] [place] [address]- 7196 Sep, [facility] [place] [facility] [address] [id number] [place] [address]- 7858 28 Sep, 2012 [facility] [address] [id number] [place] [address]- 6933 27 Sep, 2012 [facility] [place] [facility] [address] [id number] [place] [address]- 2436 14 Sep, 2012 [facility] [place] [facility] [address] [id number] [place] [address]- 2211 13 Sep, 2012 [facility] [place] [facility] [address] [id number] [place] [address]- 2317 10 Sep, 2012 [facility] [place] [facility] [address] [id number] [place] [address]- 7596 07 Sep, 2012 [facility] [place] [facility] [address] [id number] [place] [address]- 3085 06 Sep, 2012 [facility] [place] [facility] [address] [id number] [place] [address]- 0151 Sep, [facility] [place] [facility] [address] [id number] [place] [address]- 6343 August, [facility] [place] [facility] [address] [id number] [place] [address]- 1745 August, [facility] [place] [facility] [address] [id number] [place] [address]- 5761 August, [facility] [place] [facility] [address] [id number] [place] [address]- 4102 August, [facility] [place] [facility] [address] [id number], [place] [address]- 7130 August, [facility] [place] [facility] [address] [id number] [place] [address]- 6753 August, [facility] [place] [facility] [address] [id number] [place] [address]- 2127 August, [facility] [place] [facility] [address] [id number] [place] [address]- 7756 August, [facility] [place] [facility] [address] [id number] [place] [address]- 1708 Jul, [facility] [address] [id number] [place] [address]- 4432 Jul, [facility] [address] [place] [id number] Jul [facility] [address] [id number] [place] [address]- 8391 Jun, [facility] [address] [id number] [place] [address]- 8070 Jun, [facility] [address] [id number] [place] [address]- 8928 Jun, [facility] [address] [id number] [place] [address]- 0784 Jun, [facility] [address] [id number] [place] [address]- 1123 Jun, [facility] [address] [id number] [place] [address]- 2444 Jun, [facility] [address] [id number] [place] [address]- 4015 May, [facility] [address] [id number] [place] [address]- 1825 May, [facility] [address] [id number] [place] [address]- 4525 May, [facility] [address] [id number] [place] [address]- 6471 May, [facility] [address] [id number] [place] [address]- 1733 May, [facility] [address] [id number] [place] [address]- 6910 Apr, [facility] [address] [id number] [place] [address]- 9858 Apr, [facility] [place] [facility] [address] [id number] [place] [address]- 1889 Apr, [facility] [place] [facility] [address] [id number] [place] [address]- 1166 Apr, [facility] [place] [facility] [address] [id number] [place] [address]- 6656 Apr, [facility] [place] [facility] [address] [id number] [place] [address]- 4496 Apr, [facility] [place] [facility] [address] [id number] [place] [address]- 5283 Mar, [facility] [place] [facility] [address] [id number] [place] [address]- 8143 Mar, [facility] [place] [facility] [address] [id number] [place] [address]- 8908 Mar, [facility] [place] [facility] [address] [id number] [place] [address]- 3939 Mar, [facility] [place] [facility] [address] [id number] [place] [address]- 1728 Mar, [facility] [place] [facility] [address] [id number] [place] [address]- 4111 Mar, [facility] [place] [facility] [address] [id number] [place] [address]80 18 Mar, 2012 [facility] [place] [facility] [address] [id number] [place] [address]- 3346 Mar, [facility] [place] [facility] [address] [id number] [place] [address]- 6796 10 Mar, 2012 [facility] [place] [facility] [address] [id number] [place] [address]- 1896 05 Mar, 2012 [facility] [place] [facility] [address] [id number] [place] [address]- 0766 05 Mar, 2012 [facility] [place] [facility] [address] [id number] [place] [address]- 8906 Feb, [facility] [place] [facility] [address] [id number] [place] [address]- 8059 Feb, [facility] [place] [facility] [address] [id number] [place] [address]- 0870 Feb, [facility] [place] [facility] [address] [id number] [place] [address]- 5673 Feb, [facility] [place] [facility] [address] [id number] [place] [address]- 7155 Feb, [facility] [place] [facility] [address] [id number] [place] [address]- 8475 Feb, [facility] [place] [facility] [address] [id number] [place] [address]- 1875 Feb, [facility] [place] [facility] [address] [id number] [place] [address]- 2412 Feb, [facility] [place] [facility] [address] [id number] [place] [address]- 4121 Feb, [facility] [place] [facility] [address] [id number] [place] [address]- 6468 Feb, [facility] [place] [facility] [address] [id number] [place] [address]- 2681 Feb, [facility] [place] [facility] [address] [id number], [place] [address]- 5698 Jan, [facility] [place] [facility] [address] [id number], [place] [address]- 9372 Jan, [facility] [place] [facility] [address] [id number] [place] [address]- 8392 Jan, [facility] [place] [facility] [address] [id number], [place] [address]- 1733 Jan, [facility] [place] [facility] [address] [id number], [place] [address]- 9556 19 Jan, 2012 [facility] [place] [facility] [address] [id number] [place] [address]- 0367 19 Jan, 2012 [facility] [place] [facility] [address] [id number] [place] [address]- 2504 09 Jan, 2012 [facility] [place] [facility] [address] [id number] [place] [address]- 2336 24 Dec, 2011 [facility] [place] [facility] [address] [id number] [place] [address]- 0816 17 Dec, 2011 [facility] [place] [facility] [address] [id number] [place] [address]- 6871 13 Dec, 2011 [facility] [place] [facility] [address] [id number] [place] [address]- 9336 12 Dec, 2011 [facility] [place] [facility] [address] [id number] [place] [address]- 5721 23 Nov, 2011 [facility] [place] [facility] [address] [id number] [place] [address]- 4921 Nov, [facility] [place] [facility] [address] [id number] [place] [address]- 5827 Nov, [facility] [place] [facility] [address] [id number] [place] [address]- 2775 15 Nov, 2011 [facility] [place] [facility] [address] [id number] [place] [address]- 6890 14 Nov, 2011 [facility] [place] [facility] [address] [id number] [place] [address]- 3178 Nov, [facility] [place] [facility] [address] [id number] [place] [address]- 7698 Nov, [facility] [place] [facility] [address] [id number] [place] [address]- 2944 Nov, [facility] [place] [facility] [address] [id number] [place] [address]- 9314 Nov, [facility] [place] [facility] [address] [id number] [place] [address]- 9958 Nov, [facility] [place] [facility] [address] [id number] [place] [address]- 1247 Nov, [facility] [place] [facility] [address] [id number] [place] [address]- 4839 Nov, [facility] [place] [facility] [address] [id number] [place] [address]- 5735 Nov, [facility] [place] [facility] [address] [id number] [place] [address]- 1108 Oct, [facility] [place] [facility] [address] [id number] [place] [address]- 0727 Oct, [facility] [place] [facility] [address] [id number] [place] [address]- 1603 Oct, [facility] [place] [facility] [address] [id number] [place] [address]- 9176 Oct, [facility] [place] [facility] [address] [id number] [place] [address]- 2623 Oct, [facility] [place] [facility] [address] [id number] [place] [address]- 5841 Oct, [facility] [place] [facility] [address] [id number] [place] [address]- 0825 Oct, [facility] [place] [facility] [address] [id number] [place] [address]- 2074 Oct, [facility] [place] [facility] [address] [id number] [place] [address]- 1059 Oct, [facility] [place] [facility] [address] [id number] [place] [address]- 3361 Sep, [facility] [place] [facility] [address] [id number] [place] [address]- 6954 Sep, [facility] [place] [facility] [address] [id number] [place] [address]- 6408 Sep, [facility] [place] [facility] [address] [id number] [place] [address]- 4256 Sep, [facility] [place] [facility] [address] [id number] [place] [address]- 9326 Sep, [facility] [place] [facility] [address] [id number] [place] [address]806 Sep, [facility] [place] [facility] [address] [id number] [place] [address]- 1519 Sep, [facility] [place] [facility] [address] [id number] [place] [address]- 6341 Sep, [facility] [place] [facility] [address] [id number] [place] [address]- 5822 August, [facility] [place] [facility] [address] [id number] [place] [address]- 6428 August, [facility] [place] [facility] [address] [id number] [place] [address]- 5459 August, [facility] [place] [facility] [address] [id number] [place] [address]- 9020 August, [facility] [place] [facility] [address] [id number] [place] [address]- 6739 August, [facility] [place] [facility] [address] [id number] [place] [address]- 6520 August, [facility] [place] [facility] [address] [id number] [place] [address]- 4138 August, [facility] [place] [facility] [address] [id number] [place] [address]- 3117 August, [facility] [place] [facility] [address] [id number] [place] [address]- 5166 August, [facility] [place] [facility] [address] [id number] [place] [address]- 6061 August, [facility] [place] [facility] [address] [id number] [place] [address]- 1061 August, [facility] [place] [facility] [address] [id number] [place] [address] August, [facility] [address] [facility] [id number] [place] [address]- 9955 Oct, IMMUNIZATIONS No Known Immunizations SOCIAL HISTORY Never Assessed REASON FOR VISIT Rx request PLAN OF CARE VITAL SIGNS MEDICATIONS [...] Surgical History bladder surgery Hospitalization History Via [facility] for right groin pain 05/2011 Hospitalization History Via [facility] for wound on buttocks 08/2012 Hospitalization History Via [facility] [place], hypoxia secondary to pneumonia 12/02-12/09 Hospitalization History Pneumonia, elevated CO2 on Bipap was in ICU 08/2013 Hospitalization History Hypoxia, Exacerbation COPD, Chest pain 09/05/15 Hospitalization History suicidal ideations-[place] 12/28 Hospitalization History hypoxia--[facility] 02/13/2016 Hospitalization History shortness of breath at june 2016 Hospitalization History Shortness of breath at august 2016 Hospitalization History SOB, chest pain at 12/2016
--- OUTSIDE RECORDS SUMMARY | 2017-11-24 18:19 | XMS REPORT ---
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 [facility] [address], [place] [address]- 6729 May, Unspecified mood [affective] disorder F39 [facility] [address] [facility] [id number], [place] [address]- 2852 May, [facility] [id number] [place] [address] 18857- 0335 May, [facility] [id number] [place] [address] 83663- 4644 May, [facility] [id number] [place] [address] 35260- 2307 Apr, [facility] [id number] [place] [address] 19743- 1518 Apr, Unspecified mood [affective] disorder F39 [facility] [id number] [place] [address] 42510- 2493 Apr, [facility] [id number] [place] [address] 50102- 1404 Apr, [facility] [id number] [place] [address] 16909- 2029 Apr, [facility] [address], [place] [address]- 5514 Apr, Dysuria R30.0 and Well woman exam (no gynecological exam) Z00.00 [facility] [address], [place] [address]- 5480 Mar, [facility] [id number] [place] [address] 61919- 2107 Mar, [facility] [address] [address] Mar, Dental examination Z01.20 [facility] [id number] [place] [address] 64586- 5175 Mar, Chronic diarrhea K52.9 ; Intractable vomiting with nausea, vomiting of unspecified type R11.2 ; Cellulitis, unspecified cellulitis site L03.90 ; Type 2 diabetes mellitus with diabetic polyneuropathy E11.42 and Postinflammatory hyperpigmentation L81.0 [facility] [address], [place] [address]- 8679 Mar, Unspecified mood [affective] disorder F39 [facility] [address], [place] [address]- 5421 Mar, Unspecified mood [affective] disorder F39 [facility] [id number] [place] [address] 55688- 5589 Mar, [facility] [id number] [place] [address] 46112- 7102 Mar, [facility] [id number] [place] [address] 83064- 0256 Mar, [facility] [address], [place] [address]- 0369 Mar, [facility] [id number] [place] [address] 95988- 6555 Mar, [facility] [address], [place] [address]- 2577 Mar, [facility] [address], [place] [address]- 4665 Feb, Unspecified mood [affective] disorder F39 [facility] [address], [place] [address]- 3826 Feb, [facility] [address], [place] [address]- 3648 Feb, [facility] [address], [place] [address]- 0319 Jan, Unspecified mood [affective] disorder [address] [place] [id number] [id number] Jan, Encounter for dental examination Z01.20 [facility] [id number] [place] [address] 37068- 6372 Jan, [facility] [id number] [place] [address] 04221- 9876 Jan, [facility] [id number] [place] [address] 59632- 0690 Jan, [facility] [id number] [place] [address] 14104- 4861 Jan, [facility] [address] 00031- 1048 Jan, [facility] [id number] [place] [address] 87578- 2731 Jan, Abdominal abscess K65.1 and Dental caries K02.9 [facility] [id number] [place] [address] 11904- 0195 Jan, [facility] [id number] [place] [address] 44797- 7117 30 Dec, 2014 Diabetes with neurological manifestations, type II or unspecified type, not stated as uncontrolled 250.60 ; Essential hypertension, benign 401.1 ; Concussion 850.9 and Skin texture changes 782.8 [facility] [id number] [place] [address] 57080- 4334 Dec, [facility] [id number] [place] [address] 75546- 5022 Dec, [facility] [id number] [place] [address] 72488- 8561 Dec, [facility] [id number] [place] [address] 89690- 5649 Dec, [facility] [id number] [place] [address] 13833- 3436 17 Dec, 2014 Affective disorder 296.90 [facility] [address], [place] [address] 2546 14 Dec, 2014 [facility] [address], [place] [address] 2546 10 Dec, 2014 Affective disorder 296.90 [facility] [address], [place] [address] 2546 04 Dec, 2014 [facility] [address], [place] [address]- 2546 04 Dec, 2014 [facility] [address], [place] [address]- 2546 04 Dec, 2014 [facility] [id number] [place] [address] 93660 2546 Dec, 2014 [facility] [address], [place] [address] 2546 Nov, Affective disorder 296.90 [facility] [address], [place] [address] 2546 Nov, [facility] [address], [place] [address] 2546 Nov, Affective disorder 296.90 [facility] [address], [place] [address] 2546 Nov, Diarrhea 787.91 [facility] [address], [place] [address] 2546 Nov, [facility] [address], [place] [address] 2546 Nov, Diarrhea 787.91 [facility] [id number] [place] [address] 91515 2546 Nov, Diarrhea 787.91 and Hyperlipidemia 272.4 [facility] [address], [place] [address] 2546 Nov, Diarrhea 787.91 [facility] [id number] [address]- 4378 Nov, Affective disorder 296.90 [facility] [address], [place] [address]- 1241 Nov, Affective disorder 296.90 [facility] [address], [place] [address]- 5370 17 Nov, 2014 Affective disorder 296.90 [facility] [address], [place] [address]- 8794 Nov, [facility] [address], [place] [address]- 5342 Nov, [facility] [address], [place] [address]- 4308 Nov, [facility] [address], [place] [address]- 9297 Nov, Episodic mood disorder 296.90 [facility] [address], [place] [address]- 8733 Nov, [facility] [address], [place] [address]- 5117 Nov, [facility] [address], [place] [address]- 8431 Nov, [facility] [address], [place] [address]- 4626 Nov, [facility] [address], [place] [address]- 9368 Nov, [facility] [address], [place] [address]- 7891 Nov, Lymphedema 457.1 ; Hyperlipidemia 272.4 ; Essential hypertension, benign 401.1 and Numbness of toes 782.0 [facility] [address], [place] [address]- 6742 Nov, Episodic mood disorder 296.90 [facility] [id number] [address]- 8057 27 Oct, 2014 [facility] [address] [id number] [place] [address]- 3457 Oct, 2014 [facility] [address] [facility] [id number] [place] [address]- 2526 Oct, 2014 [facility] [address] [facility] [id number] [place] [address]- 3309 Oct, 2014 [facility] [address] [facility] [id number] [place] [address]- 6382 Oct, 2014 [facility] [address] [facility] [id number] [place] [address]- 6070 Oct, 2014 [facility] [address] [facility] [id number] [place] [address]- 8718 Oct, 2014 [facility] [address] [id number] [address]- 0499 Oct, 2014 [facility] [address] [facility] [id number] [place] [address]- 9408 Oct, Episodic mood disorder 296.90 [facility] [address] [id number] [address]- 6038 Sep, [facility] [address] [id number] [address]- 7355 Sep, [facility] [address] [facility] [id number], [place] [address]- 8870 Sep, [facility] [address] [facility] [id number], [place] [address]- 3879 Sep, [facility] [address] [facility] [id number] [place] [address]- 8015 Sep, [facility] [address] [facility] [id number] [place] [address]- 7996 Sep, Episodic mood disorder 296.90 [facility] [id number], [place] [address]- 3591 Sep, Unspecified episodic mood disorder 296.90 [facility] [address], [place] [address]- 0924 Sep, [facility] [address], [place] [address]- 9778 Sep, [facility] [id number] [place] [address] 56325- 0333 Sep, Episodic mood disorder 296.90 [facility] [id number] [place] [address] 21783- 4684 Sep, [facility] [id number] [place] [address] 70147- 7779 Sep, [facility] [id number] [place] [address] 40932- 0429 Sep, [facility] [id number] [place] [address] 74540- 2446 Sep, Hematemesis 578.0 and Vomiting 787.03 [facility] [address], [place] [address]- 2179 Sep, Episodic mood disorder 296.90 [facility] [id number], [place] [address] Sep, [facility] [id number], [place] [address] Sep, [facility] [id number], [place] [address] Sep, Diabetes mellitus without mention of complication, type II or unspecified type, not stated as uncontrolled 250.00 and Other chronic pain 338.29 [facility] [id number], [place] [address] Sep, Episodic mood disorder 296.90 [facility] [id number], [place] [address] Sep, [facility] [address] [facility] [id number] [place] [address] Sep, Episodic mood disorder 296.90 [facility] [address] [facility] [id number] [place] [address] Sep, [facility] [address] [facility] [id number] [place] [address] August, [facility] [address] [facility] [id number] [place] [address] August, [facility] [address] [facility] [id number] [place] [address] August, Episodic mood disorder 296.90 [facility] [address] [id number] [address] August, [facility] [id number] [address] August, Unspecified episodic mood disorder 296.90 [facility] [address] [id number] [address] August, Vomiting 787.03 [facility] [id number] [address] August, [facility] [id number], [place] [address] August, [facility] [address] [address] August, [facility] [id number], [place] [address] August, [facility] [address] [id number] [address]- [address] August, [facility] [address] [facility] [id number] [id number] [address] Jul, [facility] [address] [id number] [address] Jul, [facility] [place] [facility] [address] [id number] [place] [address]- [address] 13 Jul, 2014 [facility] [place] [facility] [address] [id number] [place] [address]- [address] 30 Jun, 2014 [facility] [place] [facility] [address] [id number] [place] [address]- [address] 30 Jun, 2014 [facility] [place] [facility] [address] [id number] [place] [address]- 9316 30 Jun, 2014 [facility] [place] [facility] [address] [id number] [place] [address]- [address]695 30 Jun, 2014 [facility] [place] [facility] [address] [id number] [place] [address]- [address] 30 Jun, 2014 [facility] [place] [facility] [address] [id number] [place] [address]- 8873 30 Jun, 2014 [facility] [place] [facility] [address] [id number] [place] [address]- [address] 30 Jun, 2014 [facility] [place] [facility] [address] [id number] [place] [address]- 1786 30 Jun, 2014 [facility] [place] [facility] [address] [id number] [place] [address]- [address] Jun, [facility] [place] [facility] [address] [id number] [place] [address]- [address] Jun, [facility] [place] [facility] [address] [id number] [place] [address]- [address] Jun, [facility] [place] [facility] [address] [id number] [place] [address] Jun, [facility] [place] [facility] [address] [id number] [place] [address] Jun, [facility] [place] [facility] [address] [id number] [place] [address] 8823 Jun, [facility] [place] [facility] [address] [id number] [place] [address] 1768 24 Jun, 2014 [facility] [place] [facility] [address] [id number] [place] [address]- 4421 23 Jun, 2014 [facility] [place] [facility] [address] [id number] [place] [address]- 8921 23 Jun, 2014 [facility] [place] [facility] [address] [id number] [place] [address]- 0942 23 Jun, 2014 [facility] [place] [facility] [address] [id number] [place] [address]- 0437 23 Jun, 2014 [facility] [place] [facility] [address] [id number] [place] [address]- 0767 21 Jun, 2014 [facility] [place] [facility] [address] [id number] [place] [address]- 6027 21 Jun, 2014 [facility] [place] [facility] [address] [id number] [place] [address]- 8613 20 Jun, 2014 [facility] [place] [facility] [address] [id number] [place] [address]- 5409 20 Jun, 2014 [facility] [place] [facility] [address] [id number] [place] [address]- 4286 20 Jun, 2014 [facility] [place] [facility] [address] [id number] [place] [address]- 6667 20 Jun, 2014 [facility] [place] [facility] [address] [id number] [place] [address]- 1644 19 Jun, 2014 [facility] [place] [facility] [address] [id number] [place] [address]- 7532 19 Jun, 2014 [facility] [place] [facility] [address] [id number] [place] [address]- 4797 18 Jun, 2014 [facility] [place] [facility] [address] [id number] [place] [address]- 9281 18 Jun, 2014 [facility] [place] [facility] [address] [id number] [place] [address]- 2155 17 Jun, 2014 [facility] [place] [facility] [address] [id number] [place] [address] 6356 17 Jun, 2014 [facility] [place] [facility] [address] [id number] [place] [address]- 7784 16 Jun, 2014 [facility] [place] [facility] [address] [id number] [place] [address]- 5026 16 Jun, 2014 [facility] [place] [facility] [address] [id number] [place] [address]- 9690 16 Jun, 2014 [facility] [place] [facility] [address] [id number] [place] [address]- 4166 16 Jun, 2014 [facility] [place] [facility] [address] [id number] [place] [address]- 6767 16 Jun, 2014 [facility] [place] [facility] [address] [id number] [place] [address]- 1881 16 Jun, 2014 [facility] [place] [facility] [address] [id number] [place] [address]- 8555 13 Jun, 2014 [facility] [place] [facility] [address] [id number] [place] [address]- 3425 13 Jun, 2014 [facility] [place] [facility] [address] [id number] [place] [address]- 5036 12 Jun, 2014 [facility] [place] [facility] [address] [id number] [place] [address]- 5739 12 Jun, 2014 [facility] [place] [facility] [address] [id number] [place] [address]- 8914 Jun, 2014 [facility] [place] [facility] [address] [id number] [place] [address]- 2252 Jun, 2014 [facility] [place] [facility] [address] [id number] [place] [address]- 8291 Jun, 2014 [facility] [place] [facility] [address] [id number] [place] [address]- 6046 Jun, 2014 [facility] [place] [facility] [address] [id number] [place] [address]- 5263 Jun, [facility] [place] [facility] [address] [id number] [place] [address]- 0628 Jun, [facility] [place] [facility] [address] [id number] [place] [address]- 4798 Jun, [facility] [place] [facility] [address] [id number] [place] [address]- 0587 Jun, [facility] [place] [facility] [address] [id number] [place] [address]- 4476 Jun, [facility] [place] [facility] [address] [id number] [place] [address]- 8139 Jun, [facility] [place] [facility] [address] [id number] [place] [address]- 5852 Jun, [facility] [place] [facility] [address] [id number] [place] [address]- 7541 Jun, [facility] [place] [facility] [address] [id number] [place] [address]- 4340 Jun, [facility] [place] [facility] [address] [id number] [place] [address]- 0007 Jun, [facility] [place] [facility] [address] [id number] [place] [address]- 0475 Jun, [facility] [place] [facility] [address] [id number], [place] [address]557 Jun, [facility] [place] [facility] [address] [id number], [place] [address] May, [facility] [place] [facility] [address] [id number] [place] [address] 1957 May, [facility] [place] [facility] [address] [id number] [place] [address]- 7077 May, [facility] [place] [facility] [address] [id number] [place] [address]- 2582 May, [facility] [place] [facility] [address] [id number] [place] [address] 2548 24 May, 2014 [facility] [place] [facility] [address] [id number] [place] [address] 2546 24 May, 2014 [facility] [place] [facility] [address] [id number] [place] [address]- 2546 20 May, 2014 [facility] [place] [facility] [address] [id number] [place] [address]- 3196 20 May, 2014 [facility] [place] [facility] [address] [id number] [place] [address]- 2540 20 May, 2014 [facility] [place] [facility] [address] [id number] [place] [address]- 0981 20 May, 2014 [facility] [place] [facility] [address] [facility] [id number] [place] [address]- 5847 18 May, 2014 [facility] [place] [facility] [address] [facility] [id number] [place] [address]- 7204 18 May, 2014 [facility] [place] [facility] [address] [facility] [id number] [place] [address]- 5035 13 May, 2014 [facility] [place] [facility] [address] [facility] [id number] [place] [address]- 1360 13 May, 2014 [facility] [place] [facility] [address] [id number] [address] 9412 11 May, 2014 [facility] [place] [facility] [address] [facility] [id number], [place] [address]- 2542 11 May, 2014 [facility] [place] [facility] [address] [facility] [id number] [place] [address]- 2546 11 May, 2014 [facility] [place] [facility] [address] [facility] [id number] [place] [address]- 2546 11 May, 2014 [facility] [place] [facility] [address] [facility] [id number] [place] [address]- 2546 09 May, 2014 [facility] [place] [facility] [address] [facility] [id number] [place] [address]- 8514 May, 2014 [facility] [place] [facility] [address] [id number] [place] [address]- 4376 May, 2014 [facility] [place] [facility] [address] [id number] [place] [address]- 2476 May, 2014 [facility] [place] [facility] [address] [id number] [place] [address]- 2296 May, 2014 [facility] [place] [facility] [address] [id number] [place] [address]- 2541 May, 2014 [facility] [place] [facility] [address] [id number] [place] [address]- 7543 May, 2014 [facility] [place] [facility] [address] [id number] [place] [address]- 3696 May, 2014 [facility] [place] [facility] [address] [id number] [place] [address]- 7874 May, 2014 [facility] [place] [facility] [address] [id number], [place] [address]- 2438 Apr, [facility] [place] [facility] [address] [id number] [place] [address]- 0074 Apr, [facility] [place] [facility] [address] [facility] [id number] [place] [address]- 5003 Apr, [facility] [place] [facility] [address] [id number] [place] [address]- 3113 Apr, [facility] [place] [facility] [address] [id number], [place] [address]- 0175 Apr, [facility] [place] [facility] [address] [id number] [place] [address]- 1742 Apr, [facility] [place] [facility] [address] [id number] [place] [address]- 6510 Apr, [facility] [place] [facility] [address] [id number], [place] [address]- 8620 Apr, [facility] [place] [facility] [address] [id number] [place] [address]- 5633 Apr, [facility] [place] [facility] [address] [id number] [place] [address]- 2082 Apr, [facility] [place] [facility] [address] [id number] [place] [address]- 3888 Apr, [facility] [place] [facility] [address] [id number] [place] [address]- 4537 Apr, [facility] [place] [facility] [address] [id number] [place] [address]- 6930 Apr, [facility] [place] [facility] [address] [id number] [place] [address]- 0447 Apr, [facility] [place] [facility] [address] [id number] [place] [address]- 2326 Apr, [facility] [place] [facility] [address] [id number] [place] [address]- 3375 Apr, [facility] [place] [facility] [address] [id number] [place] [address]- 3374 Apr, [facility] [place] [facility] [address] [id number] [place] [address]- 7122 Apr, [facility] [place] [facility] [address] [id number] [place] [address]- 7996 Apr, [facility] [place] [facility] [address] [id number], [place] [address]- 7753 Apr, [facility] [place] [facility] [address] [id number] [place] [address]- 0823 Mar, [facility] [place] [facility] [address] [id number] [place] [address]- 4663 Mar, [facility] [place] [facility] [address] [id number] [place] [address]- 5334 Mar, [facility] [place] [facility] [address] [id number] [place] [address]- 0685 24 Mar, 2014 [facility] [place] [facility] [address] [id number] [place] [address]- 5030 Mar, [facility] [place] [facility] [address] [id number] [place] [address]- 7454 Mar, [facility] [place] [facility] [address] [id number] [place] [address]- 1436 18 Mar, 2014 [facility] [place] [facility] [address] [id number] [place] [address]- 0220 18 Mar, 2014 [facility] [place] [facility] [address] [id number] [place] [address]- 0505 15 Mar, 2014 [facility] [place] [facility] [address] [id number] [place] [address]- 4798 15 Mar, 2014 [facility] [place] [facility] [address] [id number] [place] [address]- 7011 15 Mar, 2014 [facility] [place] [facility] [address] [id number] [place] [address]- 8311 15 Mar, 2014 [facility] [place] [facility] [address] [id number] [place] [address]- 4239 Mar, [facility] [place] [facility] [address] [id number] [place] [address]- 4300 Mar, [facility] [place] [facility] [address] [id number] [place] [address]- 5164 Mar, [facility] [place] [facility] [address] [id number] [place] [address]- 9262 Mar, [facility] [place] [facility] [address] [id number] [place] [address]- 5781 Feb, [facility] [place] [facility] [address] [id number] [place] [address]- 0106 Feb, [facility] [place] [facility] [address] [id number] [place] [address]- 0055 Feb, [facility] [place] [facility] [address] [id number] [place] [address]- 9577 20 Feb, 2014 [facility] [place] [facility] [address] [id number] [place] [address]- 0919 20 Feb, 2014 [facility] [place] [facility] [address] [id number] [place] [address]- 7982 19 Feb, 2014 [facility] [place] [facility] [address] [id number] [place] [address]- 3157 19 Feb, 2014 [facility] [place] [facility] [address] [id number] [place] [address]- 2102 18 Feb, 2014 [facility] [place] [facility] [address] [id number] [place] [address]- 2068 18 Feb, 2014 [facility] [place] [facility] [address] [id number] [place] [address]- 7442 17 Feb, 2014 [facility] [place] [facility] [address] [id number] [place] [address]- 7404 17 Feb, 2014 [facility] [place] [facility] [address] [id number] [place] [address]- 7301 17 Feb, 2014 [facility] [place] [facility] [address] [id number] [place] [address]- 0538 17 Feb, 2014 [facility] [place] [facility] [address] [id number] [place] [address]- 5359 14 Feb, 2014 [facility] [place] [facility] [address] [id number] [place] [address]- 4289 14 Feb, 2014 [facility] [place] [facility] [address] [id number] [place] [address]- 7121 14 Feb, 2014 [facility] [place] [facility] [address] [id number] [place] [address]- 0359 14 Feb, 2014 [facility] [place] [facility] [address] [id number] [place] [address]- 1701 10 Feb, 2014 [facility] [place] [facility] [address] [id number] [place] [address]- 0013 Feb, [facility] [place] [facility] [address] [id number] [place] [address]- 3006 Feb, [facility] [place] [facility] [address] [id number] [place] [address]- 5997 Feb, [facility] [place] [facility] [address] [id number] [place] [address]- 7373 Jan, [facility] [place] [facility] [address] [id number] [place] [address]- 5077 Jan, [facility] [place] [facility] [address] [id number] [place] [address]197 Jan, [facility] [place] [facility] [address] [id number] [place] [address]- 1694 Jan, [facility] [place] [facility] [address] [id number] [place] [address]- 3921 Jan, [facility] [place] [facility] [address] [id number], [place] [address]- 7009 Jan, [facility] [place] [facility] [address] [id number] [place] [address]- 5980 Jan, [facility] [place] [facility] [address] [id number] [place] [address]- 2438 Jan, [facility] [place] [facility] [address] [id number], [place] [address]- 8207 Jan, [facility] [place] [facility] [address] [id number], [place] [address]- 3675 Jan, [facility] [place] [facility] [address] [id number] [place] 1990 Jan, [facility] [place] [facility] [address] [id number], [place] [address]- 6692 Jan, [facility] [place] [facility] [address] [id number] 2986 Jan, [facility] [place] [facility] [address] [id number] [place] [address]- 9919 17 Jan, 2014 [facility] [place] [facility] [address] [id number] [place] [address]- 8301 15 Jan, 2014 [facility] [place] [facility] [address] [id number] [place] [address]- 9375 15 Jan, 2014 [facility] [place] [facility] [address] [id number] [place] [address]- 1311 14 Jan, 2014 [facility] [place] [facility] [address] [id number] [place] [address]- 9392 14 Jan, 2014 [facility] [place] [facility] [address] [id number] [place] [address]- 9010 13 Jan, 2014 [facility] [place] [facility] [address] [id number] [place] [address]- 6118 13 Jan, 2014 [facility] [place] [facility] [address] [id number] [place] [address]- 4674 13 Jan, 2014 [facility] [place] [facility] [address] [id number] [place] [address]- 0034 13 Jan, 2014 [facility] [place] [facility] [address] [id number] [place] [address]- 9682 10 Jan, 2014 [facility] [place] [facility] [address] [id number] [place] [address]- 2916 02 Jan, 2014 [facility] [place] [facility] [address] [id number] [place] [address]- 6719 Jan, [facility] [place] [facility] [address] [id number] [place] [address]- 4374 Dec, [facility] [place] [facility] [address] [id number] [place] [address]- 6760 Dec, [facility] [place] [facility] [address] [id number] [place] [address]- 8685 Dec, [facility] [place] [facility] [address] [id number] [place] [address]- 1731 Dec, 2013 [facility] [place] [facility] [address] [id number] [place] [address]- 8250 19 Sep, 2013 [facility] [place] [facility] [address] [id number] [place] [address]- 0419 19 Sep, 2013 [facility] [place] [facility] [address] [id number] [place] [address]- 8246 17 Sep, 2013 [facility] [place] [facility] [address] [id number] [place] [address]- 3515 17 Sep, 2013 [facility] [place] [facility] [address] [id number] [place] [address]- 3381 09 Sep, 2013 [facility] [place] [facility] [address] [id number] [place] [address]- 4234 09 Sep, 2013 [facility] [place] [facility] [address] [id number] [place] [address]- 7622 08 Sep, 2013 [facility] [place] [facility] [address] [id number] [place] [address]- 1035 08 Sep, 2013 [facility] [place] [facility] [address] [id number] [place] [address]- 4976 04 Sep, 2013 [facility] [place] [facility] [address] [id number] [place] [address]- 1344 04 Sep, 2013 [facility] [place] [facility] [address] [id number] [place] [address]- 9861 02 Sep, 2013 [facility] [place] [facility] [address] [id number] [place] [address]- 2548 02 Sep, 2013 [facility] [place] [facility] [address] [id number] [place] [address]- 2542 Sep, 2013 [facility] [place] [facility] [address] [id number] [place] [address]- 2542 Dec, 2013 [facility] [place] [facility] [address] [id number] [place] [address]- 1362 Nov, 2013 [facility] [place] [facility] [address] [id number] [place] [address]- 4364 Nov, [facility] [place] [facility] [address] [id number] [place] [address]- 3359 Nov, [facility] [place] [facility] [address] [id number] [place] [address]- 2009 Nov, [facility] [place] [facility] [address] [id number] [place] [address]- 5064 Nov, [facility] [place] [facility] [address] [id number] [place] [address]- 0385 Nov, [facility] [place] [facility] [address] [id number] [place] [address]- 0346 Nov, [facility] [place] [facility] [address] [id number] [place] [address]- 7985 Nov, [facility] [place] [facility] [address] [id number] [place] [address]- 2745 Nov, [facility] [place] [facility] [address] [id number] [place] [address]- 7658 Nov, [facility] [place] [facility] [address] [id number] [place] [address]- 5587 Nov, [facility] [place] [facility] [address] [id number] [place] [address]- 9400 Nov, [facility] [place] [facility] [address] [id number] [place] [address]- 5017 Oct, [facility] [place] [facility] [address] [id number] [place] [address]- 5411 Oct, [facility] [place] [facility] [address] [id number] [place] [address]- 0845 Oct, [facility] [place] [facility] [address] [id number] [place] [address]- 4237 Oct, [facility] [place] [facility] [address] [id number] [place] [address]- 7941 Oct, [facility] [place] [facility] [address] [id number] [place] [address]- 9538 24 Oct, 2013 [facility] [place] [facility] [address] [id number] [place] [address]- 4788 Oct, [facility] [place] [facility] [address] [id number] [place] [address]- 2425 Oct, [facility] [place] [facility] [address] [id number] [place] [address]- 9125 Oct, [facility] [place] [facility] [address] [id number] [place] [address]- 8500 Oct, [facility] [place] [facility] [address] [id number] [place] [address]- 3449 Oct, [facility] [place] [facility] [address] [id number] [place] [address]- 1038 16 Oct, 2013 [facility] [place] [facility] [address] [id number] [place] [address] Oct, [facility] [place] [facility] [address] [id number] [place] [address] 14 Oct, 2013 [facility] [place] [facility] [address] [id number] [place] [address] Oct, [facility] [place] [facility] [address] [id number] [place] [address] Oct, [facility] [place] [facility] [address] [id number] [place] [address] Oct, [facility] [place] [facility] [address] [id number] [place] [address] Sep, [facility] [place] [facility] [address] [id number] [place] [address] Sep, [facility] [place] [facility] [address] [id number] [place] [address] Sep, [facility] [place] [facility] [address] [id number] [place] [address] Sep, [facility] [place] [facility] [address] [id number] [place] [address] 18 Sep, 2013 [facility] [place] [facility] [address] [id number] [place] [address]- 4285 18 Sep, 2013 [facility] [place] [facility] [address] [id number] [place] [address] 17 Sep, 2013 [facility] [place] [facility] [address] [id number] [place] [address] Sep, [facility] [place] [facility] [address] [id number] [place] [address] Sep, [facility] [place] [facility] [address] [id number] [place] [address] 1329 Sep, [facility] [place] [facility] [address] [id number] [place] [address] Sep, [facility] [place] [facility] [address] [id number] [place] [address] Sep, [facility] [place] [facility] [address] [id number] [place] [address] Sep, [facility] [place] [facility] [address] [id number] [place] [address] Sep, [facility] [place] [facility] [address] [id number] [place] [address] 47[address] Sep, [facility] [place] [facility] [address] [id number] [place] [address] Sep, [facility] [place] [facility] [address] [id number] [place] [address] 39[address] Sep, [facility] [place] [facility] [address] [id number] [place] [address]- [address] 07 Sep, 2013 [facility] [place] [facility] [address] [id number] [place] [address]- 99[address] 05 Sep, 2013 [facility] [place] [facility] [address] [id number] [place] [address]- [address] Sep, [facility] [address] [id number] [place] [address] Sep, [facility] [place] [facility] [address] [id number] [place] [address]248 Sep, [facility] [place] [facility] [address] [id number] [place] [address] August, [facility] [place] [facility] [address] [id number] [place] [address] 4768 August, [facility] [place] [facility] [address] [id number] [place] [address] August, [facility] [place] [facility] [address] [id number] [place] [address] August, [facility] [address] [id number] [place] [address] 9147 August, [facility] [place] [facility] [address] [id number] [place] [address]- [address] August, [facility] [place] [facility] [address] [id number] [place] [address] August, [facility] [place] [facility] [address] [id number] [place] [address] August, [facility] [place] [facility] [address] [id number] [place] [address]- 67[address] August, [facility] [place] [facility] [address] [id number] [place] [address]- 1577 August, [facility] [place] [facility] [address] [id number] [place] [address]- [address] August, [facility] [place] [facility] [address] [id number] [place] [address] Jul, [facility] [place] [facility] [address] [id number] [place] [address] 69[address] Jul, [facility] [place] [facility] [address] [id number] [place] [address]- [address] 25 Jul, 2013 [facility] [place] [facility] [address] [id number] [place] [address]- [address] 25 Jul, 2013 [facility] [place] [facility] [address] [id number] [place] [address]- [address] 23 Jul, 2013 [facility] [place] [facility] [address] [id number] [place] [address]- [address] 23 Jul, 2013 [facility] [place] [facility] [address] [id number] [place] [address]- [address] Jul, [facility] [place] [facility] [address] [id number] [place] [address]- 7041 Jul, [facility] [place] [facility] [address] [id number] [place] [address]- [address] 18 Jul, 2013 [facility] [place] [facility] [address] [id number] [place] [address]- 6370 18 Jul, 2013 [facility] [place] [facility] [address] [id number] [place] [address]- [address] 16 Jul, 2013 [facility] [place] [facility] [address] [id number] [place] [address]- 8799 14 Jul, 2013 [facility] [place] [facility] [address] [id number] [place] [address]- 1011 14 Jul, 2013 [facility] [place] [facility] [address] [id number] [place] [address]- 9688 11 Jul, 2013 [facility] [place] [facility] [address] [id number] [place] [address]- 5883 11 Jul, 2013 [facility] [place] [facility] [address] [id number] [place] [address]- 0633 10 Jul, 2013 [facility] [place] [facility] [address] [id number] [place] [address]- 5993 10 Jul, 2013 [facility] [place] [facility] [address] [id number] [place] [address]- 96[address] Jul, [facility] [place] [facility] [address] [id number] [place] [address]- 7708 Jul, [facility] [place] [facility] [address] [id number] [place] [address]- [address] Jul, [facility] [place] [facility] [address] [id number] [place] [address]- 5044 Jul, [facility] [place] [facility] [address] [id number] [place] [address]- 1819 Jul, [facility] [place] [facility] [address] [id number] [place] [address] 3416 Jul, [facility] [place] [facility] [address] [id number] [place] [address]- 2964 Jun, [facility] [place] [facility] [address] [id number] [place] [address]- 6456 Jun, [facility] [place] [facility] [address] [id number] [place] [address]- 4340 Jun, [facility] [place] [facility] [address] [id number] [place] [address]- 8892 Jun, [facility] [place] [facility] [address] [id number] [place] [address]- 0327 Jun, [facility] [place] [facility] [address] [id number] [place] [address]- 72[address] Jun, [facility] [place] [facility] [address] [id number] [place] [address]- 8776 Jun, [facility] [place] [facility] [address] [id number] [place] [address]- 8482 Jun, [facility] [place] [facility] [address] [id number] [place] [address]- 3340 Jun, [facility] [place] [facility] [address] [id number] [place] [address]- 3193 Jun, [facility] [place] [facility] [address] [id number] [place] [address]- 5806 17 Jun, 2013 [facility] [address] [id number] [place] [address]- 9013 Jun, [facility] [place] [facility] [address] [id number] [place] [address]- 7936 May, [facility] [address] [id number] [place] [address]- 8275 May, [facility] [place] [facility] [address] [id number] [place] [address]- 2902 Apr, [facility] [facility] [address] [id number] [place] [address] Apr, [facility] [address] [id number] [place] [address] Apr, [facility] [address] [id number] [place] [address] Apr, [facility] [address] [id number] [place] [address] Apr, [facility] [place] [facility] [address] [id number] [place] [address] Apr, [facility] [address] [id number] [place] [address] Apr, [facility] [place] [facility] [address] [id number] [place] [address] Apr, [facility] [place] [facility] [address] [id number] [place] [address] Apr, [facility] [place] [facility] [address] [id number] [place] [address] Apr, [facility] [place] [facility] [address] [id number] [place] [address] Apr, [facility] [place] [facility] [address] [id number] [place] [address] 3265 Mar, [facility] [address] [id number] [place] [address] 8219 Mar, [facility] [place] [facility] [address] [id number] [place] [address] 4736 Mar, [facility] [place] [facility] [address] [id number] [place] [address] Mar, [facility] [place] [facility] [address] [id number] [place] [address]153 Feb, [facility] [place] [facility] [address] [id number] [place] [address] 6319 Feb, [facility] [place] [facility] [address] [id number] [place] [address]- 6056 Feb, [facility] [place] [facility] [address] [id number] [place] [address]- 0714 Feb, [facility] [place] [facility] [address] [id number], [place] [address] Feb, [facility] [place] [facility] [address] [id number], [place] [address] 29[address] Feb, [facility] [place] [facility] [address] [facility] [id number], [place] [address] Feb, [facility] [place] [facility] [address] [facility] [id number], [place] [address] Feb, [facility] [place] [facility] [address] [id number], [place] [address] 89[address] Feb, [facility] [place] [facility] [address] [id number], [place] [address] Feb, [facility] [place] [facility] [address] [id number], [place] [address] 50[address] Feb, [facility] [place] [facility] [address] [facility] [id number], [place] [address] Jan, [facility] [place] [facility] [address] [id number], [place] [address] 25 Jan, 2013 [facility] [place] [facility] [address] [id number] [place] [address]- 3617 11 Jan, 2013 [facility] [place] [facility] [address] [id number] [place] [address]- 1100 11 Jan, 2013 [facility] [place] [facility] [address] [id number] [place] [address]- 9604 10 Jan, 2013 [facility] [place] [facility] [address] [id number] [place] [address]- 4095 10 Jan, 2013 [facility] [place] [facility] [address] [id number] [place] [address]- 8643 03 Jan, 2013 [facility] [place] [facility] [address] [id number] [place] [address]- 3364 02 Jan, 2013 [facility] [place] [facility] [address] [id number] [place] [address]- 6686 30 Sep, 2012 [facility] [place] [facility] [address] [id number] [place] [address]- 1568 25 Sep, 2012 [facility] [place] [facility] [address] [id number] [place] [address]- 1254 18 Sep, 2012 [facility] [place] [facility] [address] [facility] [id number] [place] [address]- 2125 17 Sep, 2012 [facility] [place] [facility] [address] [id number], [place] [address] 2549 17 Sep, 2012 [facility] [place] [facility] [address] [id number], [place] [address]- 254 16 Sep, 2012 [facility] [place] [facility] [address] [id number] [place] [address]- 2547 13 Sep, 2012 [facility] [place] [facility] [address] [facility] [id number] [place] [address]- 2549 11 Sep, 2012 [facility] [place] [facility] [address] [facility] [id number] [place] [address]- 2798 05 Sep, 2012 [facility] [place] [facility] [address] [id number] [place] [address] 4086 Dec, [facility] [place] [facility] [address] [id number] [place] [address]- 7465 Nov, [facility] [place] [facility] [address] [id number] [place] [address]- 7424 Nov, [facility] [place] [facility] [address] [id number] [place] [address]- 7765 Nov, [facility] [place] [facility] [address] [id number] [place] [address]- 4485 Nov, [facility] [place] [facility] [address] [id number] [place] [address]- 6648 Nov, [facility] [place] [facility] [address] [id number] [place] [address]- 7664 Nov, [facility] [place] [facility] [address] [id number] [place] [address]- 6142 Nov, [facility] [place] [facility] [address] [id number] [place] [address]- 0158 Oct, [facility] [place] [facility] [address] [id number] [place] [address]- 4031 Oct, [facility] [place] [facility] [address] [id number] [place] [address]- 0945 Oct, [facility] [place] [facility] [address] [id number] [place] [address]- 8604 Oct, [facility] [place] [facility] [address] [id number] [place] [address]- 0644 Oct, [facility] [place] [facility] [address] [id number] [place] [address]- 5812 Oct, [facility] [place] [facility] [address] [id number] [place] [address]- 1634 Sep, [facility] [place] [facility] [address] [id number] [place] [address]- 0074 28 Sep, 2012 [facility] [address] [id number] [place] [address]- 8115 27 Sep, 2012 [facility] [place] [facility] [address] [id number] [place] [address]- 0937 14 Sep, 2012 [facility] [place] [facility] [address] [id number] [place] [address]- 4409 13 Sep, 2012 [facility] [place] [facility] [address] [id number] [place] [address]- 1369 10 Sep, 2012 [facility] [place] [facility] [address] [id number] [place] [address]- 6514 07 Sep, 2012 [facility] [place] [facility] [address] [id number] [place] [address]- 2875 06 Sep, 2012 [facility] [place] [facility] [address] [id number] [place] [address]- 7670 Sep, [facility] [place] [facility] [address] [id number] [place] [address] 2953 August, [facility] [place] [facility] [address] [id number] [place] [address]- 1741 August, [facility] [place] [facility] [address] [id number] [place] [address]- 9261 August, [facility] [place] [facility] [address] [id number] [place] [address]- 2070 August, [facility] [place] [facility] [address] [id number], [place] [address]- 3687 August, [facility] [place] [facility] [address] [id number] [place] [address]- 2031 August, [facility] [place] [facility] [address] [id number] [place] [address]- 3576 August, [facility] [place] [facility] [address] [id number] [place] [address]- 0097 August, [facility] [place] [facility] [address] [id number] [place] [address]- 0966 Jul, [facility] [address] [id number] [place] [address]- 6972 Jul, [facility] [address] [place] [id number] Jul [facility] [address] [id number] [place] [address]- 9763 Jun, [facility] [address] [id number] [place] [address]- 5442 Jun, [facility] [address] [id number] [place] [address]- 6033 Jun, [facility] [address] [id number] [place] [address]- 3572 Jun, [facility] [address] [id number] [place] [address]- 1593 Jun, [facility] [address] [id number] [place] [address]- 5375 Jun, [facility] [address] [id number] [place] [address]- 1372 May, [facility] [address] [id number] [place] [address]- 4044 May, [facility] [address] [id number] [place] [address]- 7911 May, [facility] [address] [id number] [place] [address]- 5940 May, [facility] [address] [id number] [place] [address]- 3365 May, [facility] [address] [id number] [place] [address]- 5584 Apr, [facility] [address] [id number] [place] [address]- 2959 Apr, [facility] [place] [facility] [address] [id number] [place] [address]- 9111 Apr, [facility] [place] [facility] [address] [id number] [place] [address]- 3297 Apr, [facility] [place] [facility] [address] [id number] [place] [address]- 8916 Apr, [facility] [place] [facility] [address] [id number] [place] [address]- 1106 Apr, [facility] [place] [facility] [address] [id number] [place] [address]- 3405 Mar, [facility] [place] [facility] [address] [id number] [place] [address]- 7498 Mar, [facility] [place] [facility] [address] [id number] [place] [address]- 3773 Mar, [facility] [place] [facility] [address] [id number] [place] [address]- 4529 Mar, [facility] [place] [facility] [address] [id number] [place] [address]- 8213 Mar, [facility] [place] [facility] [address] [id number] [place] [address]- 9947 Mar, [facility] [place] [facility] [address] [id number] [place] [address] 18 Mar, 2012 [facility] [place] [facility] [address] [id number] [place] [address]- 2836 Mar, [facility] [place] [facility] [address] [id number] [place] [address]- 1276 10 Mar, 2012 [facility] [place] [facility] [address] [id number] [place] [address]- 6016 05 Mar, 2012 [facility] [place] [facility] [address] [id number] [place] [address]- 8576 05 Mar, 2012 [facility] [place] [facility] [address] [id number] [place] [address]- 9280 Feb, [facility] [place] [facility] [address] [id number] [place] [address]- 5446 Feb, [facility] [place] [facility] [address] [id number] [place] [address]- 0856 Feb, [facility] [place] [facility] [address] [id number] [place] [address]- 3572 Feb, [facility] [place] [facility] [address] [id number] [place] [address]- 5040 Feb, [facility] [place] [facility] [address] [id number] [place] [address]- 5011 Feb, [facility] [place] [facility] [address] [id number] [place] [address]- 7697 Feb, [facility] [place] [facility] [address] [id number] [place] [address]- 8527 Feb, [facility] [place] [facility] [address] [id number] [place] [address]- 9894 Feb, [facility] [place] [facility] [address] [id number] [place] [address]- 6205 Feb, [facility] [place] [facility] [address] [id number] [place] [address]- 0501 Feb, [facility] [place] [facility] [address] [id number], [place] [address]- 4471 Jan, [facility] [place] [facility] [address] [id number], [place] [address]- 9146 Jan, [facility] [place] [facility] [address] [id number] [place] [address]- 9559 Jan, [facility] [place] [facility] [address] [id number], [place] [address]- 4928 Jan, [facility] [place] [facility] [address] [id number], [place] [address]- 1785 19 Jan, 2012 [facility] [place] [facility] [address] [id number] [place] [address]- 9515 19 Jan, 2012 [facility] [place] [facility] [address] [id number] [place] [address]- 7492 09 Jan, 2012 [facility] [place] [facility] [address] [id number] [place] [address]- 0836 24 Dec, 2011 [facility] [place] [facility] [address] [id number] [place] [address]- 5446 17 Dec, 2011 [facility] [place] [facility] [address] [id number] [place] [address]- 9477 13 Dec, 2011 [facility] [place] [facility] [address] [id number] [place] [address]- 2750 12 Dec, 2011 [facility] [place] [facility] [address] [id number] [place] [address]- 3259 23 Nov, 2011 [facility] [place] [facility] [address] [id number] [place] [address]- 2887 Nov, [facility] [place] [facility] [address] [id number] [place] [address]- 3552 Nov, [facility] [place] [facility] [address] [id number] [place] [address]- 0174 15 Nov, 2011 [facility] [place] [facility] [address] [id number] [place] [address]- 1043 14 Nov, 2011 [facility] [place] [facility] [address] [id number] [place] [address]- 3824 Nov, [facility] [place] [facility] [address] [id number] [place] [address]- 8413 Nov, [facility] [place] [facility] [address] [id number] [place] [address]- 5986 Nov, [facility] [place] [facility] [address] [id number] [place] [address]- 6079 Nov, [facility] [place] [facility] [address] [id number] [place] [address]- 1317 Nov, [facility] [place] [facility] [address] [id number] [place] [address]- 5215 Nov, [facility] [place] [facility] [address] [id number] [place] [address]- 8317 Nov, [facility] [place] [facility] [address] [id number] [place] [address]- 6735 Nov, [facility] [place] [facility] [address] [id number] [place] [address]- 2268 Oct, [facility] [place] [facility] [address] [id number] [place] [address]- 9392 Oct, [facility] [place] [facility] [address] [id number] [place] [address]- 3790 Oct, [facility] [place] [facility] [address] [id number] [place] [address]- 9532 Oct, [facility] [place] [facility] [address] [id number] [place] [address]- 9919 Oct, [facility] [place] [facility] [address] [id number] [place] [address]- 9746 Oct, [facility] [place] [facility] [address] [id number] [place] [address]- 0333 Oct, [facility] [place] [facility] [address] [id number] [place] [address]- 6193 Oct, [facility] [place] [facility] [address] [id number] [place] [address]- 6070 Oct, [facility] [place] [facility] [address] [id number] [place] [address]- 9294 Sep, [facility] [place] [facility] [address] [id number] [place] [address]- 4796 Sep, [facility] [place] [facility] [address] [id number] [place] [address]- 1865 Sep, [facility] [place] [facility] [address] [id number] [place] [address]- 5079 Sep, [facility] [place] [facility] [address] [id number] [place] [address]- 0142 Sep, [facility] [place] [facility] [address] [id number] [place] Sep, [facility] [place] [facility] [address] [id number] [place] [address]- 0706 Sep, [facility] [place] [facility] [address] [id number] [place] [address]- 4913 Sep, [facility] [place] [facility] [address] [id number] [place] [address]- 6650 August, [facility] [place] [facility] [address] [id number] [place] [address]- 3858 August, [facility] [place] [facility] [address] [id number] [place] [address]- 2341 August, [facility] [place] [facility] [address] [id number] [place] [address]- 6195 August, [facility] [place] [facility] [address] [id number] [place] [address]- 8277 August, [facility] [place] [facility] [address] [id number] [place] [address]- 4172 August, [facility] [place] [facility] [address] [id number] [place] [address]- 5381 August, [facility] [place] [facility] [address] [id number] [place] [address]- 0139 August, [facility] [place] [facility] [address] [id number] [place] [address]- 3253 August, [facility] [place] [facility] [address] [id number] [place] [address]- 0784 August, [facility] [place] [facility] [address] [id number] [place] [address]- 4785 August, [facility] [place] [facility] [address] [id number] [place] [address]- 4955 August, [facility] [address] [facility] [id number] [place] [address]- 2945 Oct, IMMUNIZATIONS No Known Immunizations SOCIAL HISTORY Never Assessed REASON FOR VISIT Referral request PLAN OF CARE VITAL SIGNS MEDICATIONS [...] Surgical History bladder surgery Hospitalization History [facility] for right groin pain 05/2011 Hospitalization History [facility] for wound on buttocks 08/2012 Hospitalization History [facility], hypoxia secondary to pneumonia 12/02-12/09 Hospitalization History Pneumonia, elevated CO2 on Bipap was in ICU 08/2013 Hospitalization History Hypoxia, Exacerbation COPD, Chest pain 09/05/15 Hospitalization History suicidal ideations-[place] 12/28 Hospitalization History hypoxia--[facility] 02/13/2016 Hospitalization History shortness of breath at june 2016 Hospitalization History Shortness of breath at august 2016 Hospitalization History SOB, chest pain at 12/2016
--- OUTSIDE RECORDS SUMMARY | 2017-11-24 18:21 | XMS REPORT ---
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 [address] [place] [id number] [place] [address] 43339- 7179 Jun, Unspecified mood [affective] disorder [place] [address] [place] [id number] [place] [address] 20341- 3554 Jun, Unspecified mood [affective] disorder [place] [address] [place] [id number] [place] [address] 31010- 0131 Jun, Unspecified mood [affective] disorder [place] [address] [place] [id number] [place] [address] 63836- 8216 15 Jun, 2015 Unspecified mood [affective] disorder [place] [address] [place] [address] 60310- 2245 14 Jun, 2015 [place] [address] [place] [id number] [place] [address] 30006- 1191 09 Jun, 2015 Type 2 diabetes mellitus with hyperglycemia E11.65 ; Oxygen dependent Z99.81 ; Folliculitis L73.9 ; Dysuria R30.0 ; Encounter for contraceptive management Z30.9 and Dog bite W54.0XXA [place] [address] [place] [id number] [place] [address] 61058- 7134 Jun, Unspecified mood [affective] disorder [address] [place] [address] [address] [place] [id number] [place] [address] 91192- 3067 Jun, Type 2 diabetes mellitus with hyperglycemia E11.65 [facility] [address], [place] [address]- 3461 May, Unspecified mood [affective] disorder F39 [facility] [address] [facility] [id number], [place] [address]- 0997 May, [facility] [id number] [place] [address] 43147- 1746 May, [facility] [id number] [place] [address] 61682- 3661 May, [facility] [id number] [place] [address] 42512- 3292 Apr, [facility] [address] [place] [address] 93211- 7088 Apr, Unspecified mood [affective] disorder F39 [facility] [address] [place] [address] 16257- 2456 Apr, [facility] [address] [place] [address] 76325- 8786 Apr, [facility] [address] [place] [address] 94739- 1565 Apr, [facility] [address], [place] [address]- 7270 Apr, Dysuria R30.0 and Well woman exam (no gynecological exam) Z00.00 [facility] [address], [place] [address]- 0868 Mar, [facility] [id number] [place] [address] 47624- 4483 Mar, [facility] [address] [id number] Mar, Dental examination Z01.20 [facility] [address] [place] [address] 80911- 7529 Mar, Chronic diarrhea K52.9 ; Intractable vomiting with nausea, vomiting of unspecified type R11.2 ; Cellulitis, unspecified cellulitis site L03.90 ; Type 2 diabetes mellitus with diabetic polyneuropathy E11.42 and Postinflammatory hyperpigmentation L81.0 [facility] [address], [place] [address]- 4713 Mar, Unspecified mood [affective] disorder F39 [facility] [address], [place] [address]- 0090 Mar, Unspecified mood [affective] disorder F39 [facility] [address] [place] [address] 46810- 1697 Mar, [facility] [address] [place] [address] 99211- 0523 Mar, [facility] [address] [place] [address] 08075- 6731 Mar, [facility] [address], [place] [address]- 6064 Mar, [facility] [address] [place] [address] 70143- 1361 Mar, [facility] [address], [place] [address]- 3528 Mar, [facility] [address], [place] [address]- 1906 Feb, Unspecified mood [affective] disorder F39 [facility] [address], [place] [address]- 6147 Feb, [facility] [address], [place] [address]- 2717 Feb, [facility] [address], [place] [address]- 7935 Jan, Unspecified mood [affective] disorder F39 [place] [id number] [id number] Jan, Encounter for dental examination Z01.20 [facility] [id number] [place] [address] 82149- 9002 Jan, [facility] [id number] [place] [address] 93998- 2666 Jan, [facility] [id number] [place] [address] 25972- 4531 Jan, [facility] [id number] [place] [address] 83102- 4068 Jan, [facility] [address] 11291- 7692 Jan, [facility] [id number] [place] [address] 63513- 3804 Jan, Abdominal abscess K65.1 and Dental caries K02.9 [facility] [id number] [place] [address] 34412- 1785 Jan, [facility] [id number] [place] [address] 02252- 5524 30 Dec, 2014 Diabetes with neurological manifestations, type II or unspecified type, not stated as uncontrolled 250.60 ; Essential hypertension, benign 401.1 ; Concussion 850.9 and Skin texture changes 782.8 [facility] [id number] [place] [address] 66105- 8067 Dec, [facility] [id number] [place] [address] 92497- 0311 Dec, [facility] [id number] [place] [address] 19918- 0849 Dec, [facility] [id number] [place] [address] 66302- 1012 Dec, [facility] [id number] [place] [address] 61258- 3364 17 Dec, 2014 Affective disorder 296.90 [facility] [address], [place] [address] 2546 14 Dec, 2014 [facility] [address], [place] [address] 2546 10 Dec, 2014 Affective disorder 296.90 [facility] [address], [place] [address] 2546 04 Dec, 2014 [facility] [address], [place] [address]- 2546 04 Dec, 2014 [facility] [address], [place] [address]- 2546 04 Dec, 2014 [facility] [address] [place] [address]46 Dec, 2014 [facility] [address], [place] [address] Nov, Affective disorder 296.90 [facility] [address] [address] Nov, [facility] [address] [place] [address] 2546 Nov, Affective disorder 296.90 [facility] [address], [place] [address] 2546 Nov, Diarrhea 787.91 [facility] [id number] [place] [address] Nov, [facility] [address] [place] [address] 2546 Nov, Diarrhea 787.91 [facility] [place] [address] [place] [address] 2546 Nov, Diarrhea 787.91 and Hyperlipidemia 272.4 [facility] [address] [place] [address] 2546 Nov, Diarrhea 787.91 [facility] [id number] [address] Nov, Affective disorder 296.90 [facility] [address], [place] [address] Nov, Affective disorder 296.90 [facility] [address] [place] [address] 17 Nov, 2014 Affective disorder 296.90 [facility] [address] [place] [address] Nov, [facility] [address], [place] [address] Nov, [facility] [address] [address] Nov, [facility] [place] [address]005[address], [place] [address] Nov, Episodic mood disorder 296.90 [facility] [address], [place] [address] Nov, [facility] [address], [place] [address] Nov, [facility] [address], [place] [address] Nov, [facility] [address], [place] [address] Nov, [facility] [address], [place] [address] Nov, [facility] [address], [place] [address] Nov, Lymphedema 457.1 ; Hyperlipidemia 272.4 ; Essential hypertension, benign 401.1 and Numbness of toes 782.0 [facility] [address], [place] [address] Nov, Episodic mood disorder 296.90 [facility] [address] [id number] [place] [address] 27 Oct, 2014 [facility] [address] [id number] [place] [address] 7[address] Oct, 2014 [facility] [address] [facility] [id number] [place] [address] 2496 Oct, 2014 [facility] [address] [facility] [id number] [place] [address]- 8372 Oct, 2014 [facility] [address] [facility] [id number] [place] [address]- 7840 Oct, 2014 [facility] [address] [facility] [id number] [place] [address]- 5373 Oct, 2014 [facility] [address] [facility] [id number] [place] [address]- 7966 Oct, 2014 [facility] [id number] [place] [address] 9[address] Oct, 2014 [facility] [address] [facility] [id number] [place] [address]- 3752 Oct, Episodic mood disorder 296.90 [facility] [address] [id number] [place] [address] Sep, [facility] [address] [id number] [place] [address]- 6699 Sep, [facility] [address] [facility] [id number], [place] [address]- [address] Sep, [facility] [address] [facility] [id number] [address] Sep, [facility] [address] [facility] [id number] [place] [address]- 4275 Sep, [facility] [address] [facility] [id number] [place] [address]- 7195 Sep, Episodic mood disorder 296.90 [facility] [id number], [place] [address] 8516 Sep, Unspecified episodic mood disorder 296.90 [facility] [address], [place] [address] 48[address] Sep, [facility] [address], [place] [address] 57[address] Sep, [facility] [id number] [place] [address]68 Sep, Episodic mood disorder 296.90 [facility] [id number] [place] [address]- 2967 Sep, [facility] [id number] [place] [address]- 0606 Sep, [facility] [id number] [place] [address]- 0339 Sep, [facility] [id number] [place] [address]- 2104 Sep, Hematemesis 578.0 and Vomiting 787.03 [facility] [address], [place] [address]- 8181 Sep, Episodic mood disorder 296.90 [facility] [address], [place] [address]- 6878 Sep, [facility] [address], [place] [address]- 3789 Sep, [facility] [address], [place] [address]- 1025 Sep, Diabetes mellitus without mention of complication, type II or unspecified type, not stated as uncontrolled 250.00 and Other chronic pain 338.29 [facility] [address], [place] [address]- 9813 Sep, Episodic mood disorder 296.90 [facility] [address], [place] [address]- 8405 Sep, [facility] [address] [facility] [id number] [place] [address]- 6703 Sep, Episodic mood disorder 296.90 [facility] [address] [facility] [id number] [place] [address]- 9206 Sep, [facility] [address] [facility] [id number] [place] [address]- 3556 August, [facility] [address] [facility] [id number] [place] [address]- 4714 August, [facility] [address] [facility] [id number] [place] [address]- 6071 August, Episodic mood disorder 296.90 [facility] [id number] [place] [address]- 4731 August, [facility] [address] [place] [address]- 4275 August, Unspecified episodic mood disorder 296.90 [facility] [address] [id number] [place] [address]- 2546 August, Vomiting 787.03 [facility] [address] [place] [address]- 5740 August, [facility] [id number], [place] [address]- 5028 August, [facility] [address] [place] [address]- 6325 August, [facility] [id number], [place] [address]- 1389 August, [facility] [id number] [place] [address]- 4856 August, [facility] [address] [facility] [id number] [id number] [address]65 Jul, [facility] [address] [id number] [place] [address]- 8838 Jul, [facility] [place] [facility] [address] [id number] [place] [address]- 1961 13 Jul, 2014 [facility] [place] [facility] [address] [id number] [place] [address]- 6876 30 Jun, 2014 [facility] [place] [facility] [address] [id number] [place] [address]- 5852 30 Jun, 2014 [facility] [place] [facility] [address] [id number] [place] [address]- 5356 30 Jun, 2014 [facility] [place] [facility] [address] [id number] [place] [address]- 1066 30 Jun, 2014 [facility] [place] [facility] [address] [id number] [place] [address]- 0351 30 Jun, 2014 [facility] [place] [facility] [address] [id number] [place] [address]- 2440 30 Jun, 2014 [facility] [place] [facility] [address] [id number] [place] [address]- 8600 30 Jun, 2014 [facility] [place] [facility] [address] [id number] [place] [address]- 7956 30 Jun, 2014 [facility] [place] [facility] [address] [id number] [place] [address]- 0850 Jun, [facility] [place] [facility] [address] [id number] [place] [address]- 2472 Jun, [facility] [place] [facility] [address] [id number] [place] [address]- 4141 Jun, [facility] [place] [facility] [address] [id number] [place] [address]- 8889 Jun, [facility] [place] [facility] [address] [id number] [place] [address]26 Jun, [facility] [place] [facility] [address] [id number] [place] [address]- 6785 Jun, [facility] [place] [facility] [address] [id number] [place] [address]- 3601 24 Jun, 2014 [facility] [place] [facility] [address] [id number] [place] [address]- 4706 23 Jun, 2014 [facility] [place] [facility] [address] [id number] [place] [address]- 8143 23 Jun, 2014 [facility] [place] [facility] [address] [id number] [place] [address]- 0443 23 Jun, 2014 [facility] [place] [facility] [address] [id number] [place] [address]- 1336 23 Jun, 2014 [facility] [place] [facility] [address] [id number] [place] [address]- 2857 21 Jun, 2014 [facility] [place] [facility] [address] [id number] [place] [address]- 2401 21 Jun, 2014 [facility] [place] [facility] [address] [id number] [place] [address]- 7446 20 Jun, 2014 [facility] [place] [facility] [address] [id number] [place] [address]- 2322 20 Jun, 2014 [facility] [place] [facility] [address] [id number] [place] [address]- 8672 20 Jun, 2014 [facility] [place] [facility] [address] [id number] [place] [address]- 5365 20 Jun, 2014 [facility] [place] [facility] [address] [id number] [place] [address]- 2773 19 Jun, 2014 [facility] [place] [facility] [address] [id number] [place] [address]- 9163 19 Jun, 2014 [facility] [place] [facility] [address] [id number] [place] [address]- 3128 18 Jun, 2014 [facility] [place] [facility] [address] [id number] [place] [address]- 8259 18 Jun, 2014 [facility] [place] [facility] [address] [id number] [place] [address]- 4961 17 Jun, 2014 [facility] [place] [facility] [address] [id number] [place] [address]- 3316 17 Jun, 2014 [facility] [place] [facility] [address] [id number] [place] [address]- 9739 16 Jun, 2014 [facility] [place] [facility] [address] [id number] [place] [address]- 8026 16 Jun, 2014 [facility] [place] [facility] [address] [id number] [place] [address]- 2405 16 Jun, 2014 [facility] [place] [facility] [address] [id number] [place] [address]- 8848 16 Jun, 2014 [facility] [place] [facility] [address] [id number] [place] [address]- 9319 16 Jun, 2014 [facility] [place] [facility] [address] [id number] [place] [address]- 1502 16 Jun, 2014 [facility] [place] [facility] [address] [id number] [place] [address]- 4915 13 Jun, 2014 [facility] [place] [facility] [address] [id number] [place] [address]- 1400 13 Jun, 2014 [facility] [place] [facility] [address] [id number] [place] [address]- 7537 12 Jun, 2014 [facility] [place] [facility] [address] [id number] [place] [address]- 3942 12 Jun, 2014 [facility] [place] [facility] [address] [id number] [place] [address]- 6077 Jun, 2014 [facility] [place] [facility] [address] [id number] [place] [address]- 9459 Jun, 2014 [facility] [place] [facility] [address] [id number] [place] [address]- 6160 Jun, 2014 [facility] [place] [facility] [address] [id number] [place] [address]- 8256 Jun, 2014 [facility] [place] [facility] [address] [id number] [place] [address]- 0627 Jun, [facility] [place] [facility] [address] [id number] [place] [address]- 8579 Jun, [facility] [place] [facility] [address] [id number] [place] [address]- 5930 Jun, [facility] [place] [facility] [address] [id number] [place] [address]- 7036 Jun, [facility] [place] [facility] [address] [id number] [place] [address]- 3246 Jun, [facility] [place] [facility] [address] [id number] [place] [address]- 2760 Jun, [facility] [place] [facility] [address] [id number] [place] [address]- 7707 Jun, [facility] [place] [facility] [address] [id number] [place] [address]- 9586 Jun, [facility] [place] [facility] [address] [id number] [place] [address]- 1171 Jun, [facility] [place] [facility] [address] [id number] [place] [address]- 2081 Jun, [facility] [place] [facility] [address] [id number] [place] [address]- 4146 Jun, [facility] [place] [facility] [address] [id number] [address]- 6565 Jun, [facility] [place] [facility] [address] [id number], [place] [address]- 2677 May, [facility] [place] [facility] [address] [id number] [place] [address]- 4220 May, [facility] [place] [facility] [address] [id number] [place] [address]- 7121 May, [facility] [place] [facility] [address] [id number] [place] [address]- 9548 May, [facility] [place] [facility] [address] [id number] [place] [address] 254 24 May, 2014 [facility] [place] [facility] [address] [id number] [place] [address] 2546 24 May, 2014 [facility] [place] [facility] [address] [id number] [place] [address]- 2546 20 May, 2014 [facility] [place] [facility] [address] [id number] [place] [address]- 2806 20 May, 2014 [facility] [place] [facility] [address] [id number] [place] [address]- 2545 20 May, 2014 [facility] [place] [facility] [address] [id number] [place] [address]- 1795 20 May, 2014 [facility] [place] [facility] [address] [facility] [id number] [place] [address]- 3419 18 May, 2014 [facility] [place] [facility] [address] [facility] [id number] [place] [address]- 0093 18 May, 2014 [facility] [place] [facility] [address] [facility] [id number] [place] [address]- 0697 13 May, 2014 [facility] [place] [facility] [address] [facility] [id number] [place] [address]- 4651 13 May, 2014 [facility] [place] [facility] [address] [id number] [place] [address]- 2621 11 May, 2014 [facility] [place] [facility] [address] [facility] [id number], [place] [address]- 2543 11 May, 2014 [facility] [place] [facility] [address] [facility] [id number] [place] [address]- 2546 11 May, 2014 [facility] [place] [facility] [address] [facility] [id number] [place] [address]- 2546 11 May, 2014 [facility] [place] [facility] [address] [facility] [id number] [place] [address]- 2546 09 May, 2014 [facility] [place] [facility] [address] [facility] [id number] [place] [address]- 3304 May, 2014 [facility] [place] [facility] [address] [id number] [place] [address]- 4656 May, 2014 [facility] [place] [facility] [address] [id number] [place] [address]- 7746 May, 2014 [facility] [place] [facility] [address] [id number] [place] [address]- 5336 May, 2014 [facility] [place] [facility] [address] [id number] [place] [address]- 2542 May, 2014 [facility] [place] [facility] [address] [id number] [place] [address]- 7605 May, 2014 [facility] [place] [facility] [address] [id number] [place] [address]- 8044 May, 2014 [facility] [place] [facility] [address] [id number] [place] [address]- 3544 May, 2014 [facility] [place] [facility] [address] [id number], [place] [address]- 1107 Apr, [facility] [place] [facility] [address] [id number] [place] [address]- 6677 Apr, [facility] [place] [facility] [address] [facility] [id number] [place] [address]- 2796 Apr, [facility] [place] [facility] [address] [id number] [place] [address]- 5991 Apr, [facility] [place] [facility] [address] [id number], [place] [address]- 4399 Apr, [facility] [place] [facility] [address] [id number] [place] [address]- 7389 Apr, [facility] [place] [facility] [address] [id number] [place] [address]- 5919 Apr, [facility] [place] [facility] [address] [id number], [place] [address]- 8377 Apr, [facility] [place] [facility] [address] [id number] [place] [address]- 3835 Apr, [facility] [place] [facility] [address] [id number] [place] [address]- 6361 Apr, [facility] [place] [facility] [address] [id number] [place] [address]- 3353 Apr, [facility] [place] [facility] [address] [id number] [place] [address]- 8124 Apr, [facility] [place] [facility] [address] [id number] [place] [address]- 1396 Apr, [facility] [place] [facility] [address] [id number] [place] [address]- 4499 Apr, [facility] [place] [facility] [address] [id number] [place] [address]- 4833 Apr, [facility] [place] [facility] [address] [id number] [place] [address]- 8030 Apr, [facility] [place] [facility] [address] [id number] [place] [address]- 5152 Apr, [facility] [place] [facility] [address] [id number] [place] [address]- 8521 Apr, [facility] [place] [facility] [address] [id number] [place] [address]- 4688 Apr, [facility] [place] [facility] [address] [id number], [place] [address]- 8250 Apr, [facility] [place] [facility] [address] [id number] [place] [address]- 2888 Mar, [facility] [place] [facility] [address] [id number] [place] [address]- 8385 Mar, [facility] [place] [facility] [address] [id number] [place] [address]- 1443 Mar, [facility] [place] [facility] [address] [id number] [place] [address]- 9809 24 Mar, 2014 [facility] [place] [facility] [address] [id number] [place] [address]- 1525 Mar, [facility] [place] [facility] [address] [id number] [place] [address]- 7559 Mar, [facility] [place] [facility] [address] [id number] [place] [address]- 2856 18 Mar, 2014 [facility] [place] [facility] [address] [id number] [place] [address]- 5423 18 Mar, 2014 [facility] [place] [facility] [address] [id number] [place] [address]- 4884 15 Mar, 2014 [facility] [place] [facility] [address] [id number] [place] [address] 15 Mar, 2014 [facility] [place] [facility] [address] [id number] [place] [address] 15 Mar, 2014 [facility] [place] [facility] [address] [id number] [place] [address] 111[address] 15 Mar, 2014 [facility] [place] [facility] [address] [id number] [place] [address] Mar, [facility] [place] [facility] [address] [id number] [place] [address] Mar, [facility] [place] [facility] [address] [id number] [place] [address] Mar, [facility] [place] [facility] [address] [id number] [place] [address] Mar, [facility] [place] [facility] [address] [id number] [place] [address] Feb, [facility] [place] [facility] [address] [id number] [place] [address] Feb, [facility] [place] [facility] [address] [id number] [place] [address] Feb, [facility] [place] [facility] [address] [id number] [place] [address]358 20 Feb, 2014 [facility] [place] [facility] [address] [id number] [place] [address]- 6[address] 20 Feb, 2014 [facility] [place] [facility] [address] [id number] [place] [address] 5[address] 19 Feb, 2014 [facility] [place] [facility] [address] [id number] [place] [address] 6[address] 19 Feb, 2014 [facility] [place] [facility] [address] [id number] [place] [address] 5941 18 Feb, 2014 [facility] [place] [facility] [address] [id number] [place] [address]- 2535 18 Feb, 2014 [facility] [place] [facility] [address] [id number] [place] [address] 6927 17 Feb, 2014 [facility] [place] [facility] [address] [id number] [place] [address]- 4406 17 Feb, 2014 [facility] [place] [facility] [address] [id number] [place] [address]- 8662 17 Feb, 2014 [facility] [place] [facility] [address] [id number] [place] [address]- 5276 17 Feb, 2014 [facility] [place] [facility] [address] [id number] [place] [address]- 2893 14 Feb, 2014 [facility] [place] [facility] [address] [id number] [place] [address]- 4996 14 Feb, 2014 [facility] [place] [facility] [address] [id number] [place] [address]- 4418 14 Feb, 2014 [facility] [place] [facility] [address] [id number] [place] [address]- 3881 14 Feb, 2014 [facility] [place] [facility] [address] [id number] [place] [address]- 7744 10 Feb, 2014 [facility] [place] [facility] [address] [id number] [place] [address] 42[address] Feb, [facility] [place] [facility] [address] [id number] [place] [address]- [address]678 Feb, [facility] [place] [facility] [address] [id number] [place] [address]- 8111 Feb, [facility] [place] [facility] [address] [id number] [place] [address]- 4411 Jan, [facility] [place] [facility] [address] [id number] [place] [address]- 6607 Jan, [facility] [place] [facility] [address] [id number] [place] [address] Jan, [facility] [place] [facility] [address] [id number] [place] [address]- 79[address] Jan, [facility] [place] [facility] [address] [id number] [place] [address]- 4180 Jan, [facility] [place] [facility] [address] [id number] [address] Jan, [facility] [place] [facility] [address] [id number] [place] [address]- 8097 Jan, [facility] [place] [facility] [address] [id number] [place] [address]- 5370 Jan, [facility] [place] [facility] [address] [id number], [place] [address] Jan, [facility] [place] [facility] [address] [id number], [place] [address] Jan, [facility] [place] [facility] [address] [id number] [place] [address] Jan, [facility] [place] [facility] [address] [id number], [place] [address] Jan, [facility] [place] [facility] [address] [id number][place] [address] Jan, [facility] [place] [facility] [address] [id number] [place] [address]- 1576 17 Jan, 2014 [facility] [place] [facility] [address] [id number] [place] [address]- 4185 15 Jan, 2014 [facility] [place] [facility] [address] [id number] [place] [address]- 3785 15 Jan, 2014 [facility] [place] [facility] [address] [id number] [place] [address]- 7140 14 Jan, 2014 [facility] [place] [facility] [address] [id number] [place] [address]- 3948 14 Jan, 2014 [facility] [place] [facility] [address] [id number] [place] [address]- 3480 13 Jan, 2014 [facility] [place] [facility] [address] [id number] [place] [address]- 6899 13 Jan, 2014 [facility] [place] [facility] [address] [id number] [place] [address]- 2782 13 Jan, 2014 [facility] [place] [facility] [address] [id number] [place] [address]- 8498 13 Jan, 2014 [facility] [place] [facility] [address] [id number] [place] [address]- 4888 10 Jan, 2014 [facility] [place] [facility] [address] [id number] [place] [address]- 7001 02 Jan, 2014 [facility] [place] [facility] [address] [id number] [place] [address]- 8269 Jan, [facility] [place] [facility] [address] [id number] [place] [address]- 1406 Dec, [facility] [place] [facility] [address] [address] [id number] [place] [address] Dec, [facility] [place] [facility] [address] [id number] [place] [address] 9982 Dec, [facility] [place] [facility] [address] [id number] [place] [address] Dec, 2013 [facility] [place] [facility] [address] [id number] [place] [address]- 8782 19 Sep, 2013 [facility] [place] [facility] [address] [id number] [place] [address]- 6930 19 Sep, 2013 [facility] [place] [facility] [address] [id number] [place] [address]- 8031 17 Sep, 2013 [facility] [place] [facility] [address] [id number] [place] [address]- 2188 17 Sep, 2013 [facility] [place] [facility] [address] [id number] [place] [address]- 5516 09 Sep, 2013 [facility] [place] [facility] [address] [id number] [place] [address]- 4793 09 Sep, 2013 [facility] [place] [facility] [address] [id number] [place] [address]- 6005 08 Sep, 2013 [facility] [place] [facility] [address] [id number] [place] [address]- 0260 08 Sep, 2013 [facility] [place] [facility] [address] [id number] [place] [address]- 6859 04 Sep, 2013 [facility] [place] [facility] [address] [id number] [place] [address]- 4814 04 Sep, 2013 [facility] [place] [facility] [address] [id number] [place] [address]- 5597 02 Sep, 2013 [facility] [place] [facility] [address] [id number] [place] [address]- 2545 02 Sep, 2013 [facility] [place] [facility] [address] [id number] [place] [address]- 2543 Sep, 2013 [facility] [place] [facility] [address] [id number] [place] [address]- 2548 Dec, 2013 [facility] [place] [facility] [address] [id number] [place] [address]- 2148 Nov, 2013 [facility] [place] [facility] [address] [id number] [place] [address]- 5057 Nov, [facility] [place] [facility] [address] [id number] [place] [address]- 6545 Nov, [facility] [place] [facility] [address] [id number] [place] [address]- 2345 Nov, [facility] [place] [facility] [address] [id number] [place] [address]- 5157 Nov, [facility] [place] [facility] [address] [id number] [place] [address]- 9517 Nov, [facility] [place] [facility] [address] [id number] [place] [address]- 8702 Nov, [facility] [place] [facility] [address] [id number] [place] [address]- 5696 Nov, [facility] [place] [facility] [address] [id number] [place] [address]- 4391 Nov, [facility] [place] [facility] [address] [id number] [place] [address]- 5121 Nov, [facility] [place] [facility] [address] [id number] [place] [address]- 7348 Nov, [facility] [place] [facility] [address] [id number] [place] [address]- 0231 Nov, [facility] [place] [facility] [address] [id number] [place] [address]- 3116 Oct, [facility] [place] [facility] [address] [id number] [place] [address]- 8088 Oct, [facility] [place] [facility] [address] [id number] [place] [address]- 4974 Oct, [facility] [place] [facility] [address] [id number] [place] [address]- 1123 Oct, [facility] [place] [facility] [address] [id number] [place] [address]- 1507 Oct, [facility] [place] [facility] [address] [id number] [place] [address]- 0118 24 Oct, 2013 [facility] [place] [facility] [address] [id number] [place] [address]- 5972 Oct, [facility] [place] [facility] [address] [id number] [place] [address]- 9027 Oct, [facility] [place] [facility] [address] [id number] [place] [address]- 2999 Oct, [facility] [place] [facility] [address] [id number] [place] [address]- 5604 Oct, [facility] [place] [facility] [address] [id number] [place] [address]- 9470 Oct, [facility] [place] [facility] [address] [id number] [place] [address]- 9875 16 Oct, 2013 [facility] [place] [facility] [address] [id number] [place] [address]- 5074 Oct, [facility] [place] [facility] [address] [id number] [place] [address]- 9321 14 Oct, 2013 [facility] [place] [facility] [address] [id number] [place] [address]- 5332 Oct, [facility] [place] [facility] [address] [id number] [place] [address]- 6257 Oct, [facility] [place] [facility] [address] [id number] [place] [address]- 6398 Oct, [facility] [place] [facility] [address] [id number] [place] [address]- 8519 Sep, [facility] [place] [facility] [address] [id number] [place] [address]- 0759 Sep, [facility] [place] [facility] [address] [id number] [place] [address]- 1387 Sep, [facility] [place] [facility] [address] [id number] [place] [address]- 1462 Sep, [facility] [place] [facility] [address] [id number] [place] [address]- 8292 18 Sep, 2013 [facility] [place] [facility] [address] [id number] [place] [address]- 2163 18 Sep, 2013 [facility] [place] [facility] [address] [id number] [place] [address]- 0711 17 Sep, 2013 [facility] [place] [facility] [address] [id number] [place] [address]- 7059 Sep, [facility] [place] [facility] [address] [id number] [place] [address]- 3949 Sep, [facility] [place] [facility] [address] [id number] [place] [address]- 5285 Sep, [facility] [place] [facility] [address] [id number] [place] [address]- 2611 Sep, [facility] [place] [facility] [address] [id number] [place] [address]- 0091 Sep, [facility] [place] [facility] [address] [id number] [place] [address]- 9691 Sep, [facility] [place] [facility] [address] [id number] [place] [address]- 0421 Sep, [facility] [place] [facility] [address] [id number] [place] [address]- 1425 Sep, [facility] [place] [facility] [address] [id number] [place] [address]- 9772 Sep, [facility] [place] [facility] [address] [id number] [place] [address]- 9510 Sep, [facility] [place] [facility] [address] [id number] [place] [address]- 7490 07 Sep, 2013 [facility] [place] [facility] [address] [id number] [place] [address]- 8477 05 Sep, 2013 [facility] [place] [facility] [address] [id number] [place] [address]- 4979 Sep, [facility] [address] [id number] [place] [address]- 1511 Sep, [facility] [place] [facility] [address] [id number] [place] [address]- 0847 Sep, [facility] [place] [facility] [address] [id number] [place] [address]- 3305 August, [facility] [place] [facility] [address] [id number] [place] [address]- 9428 August, [facility] [place] [facility] [address] [id number] [place] [address]- 9904 August, [facility] [place] [facility] [address] [id number] [place] [address]- 9174 August, [facility] [address] [id number] [place] [address]- 4996 August, [facility] [place] [facility] [address] [id number] [place] [address]- 0114 August, [facility] [place] [facility] [address] [id number] [place] [address]- 1724 August, [facility] [place] [facility] [address] [id number] [place] [address]- 6948 August, [facility] [place] [facility] [address] [id number] [place] [address]- 3400 August, [facility] [place] [facility] [address] [id number] [place] [address]- 5531 August, [facility] [place] [facility] [address] [id number] [place] [address]- 4373 August, [facility] [place] [facility] [address] [id number] [place] [address]- 4570 Jul, [facility] [place] [facility] [address] [id number] [place] [address]- 3032 Jul, [facility] [place] [facility] [address] [id number] [place] [address]- 9676 25 Jul, 2013 [facility] [place] [facility] [address] [id number] [place] [address]- 7974 25 Jul, 2013 [facility] [place] [facility] [address] [id number] [place] [address]- 2633 23 Jul, 2013 [facility] [place] [facility] [address] [id number] [place] [address]- 2345 23 Jul, 2013 [facility] [place] [facility] [address] [id number] [place] [address]- 8368 Jul, [facility] [place] [facility] [address] [id number] [place] [address]- 7498 Jul, [facility] [place] [facility] [address] [id number] [place] [address]- 8610 18 Jul, 2013 [facility] [place] [facility] [address] [id number] [place] [address]- 2961 18 Jul, 2013 [facility] [place] [facility] [address] [id number] [place] [address]- 2582 16 Jul, 2013 [facility] [place] [facility] [address] [id number] [place] [address]- 6997 14 Jul, 2013 [facility] [place] [facility] [address] [id number] [place] [address]- 6593 14 Jul, 2013 [facility] [place] [facility] [address] [id number] [place] [address]- 7154 11 Jul, 2013 [facility] [place] [facility] [address] [id number] [place] [address]- 6077 11 Jul, 2013 [facility] [place] [facility] [address] [id number] [place] [address]- 0989 10 Jul, 2013 [facility] [place] [facility] [address] [id number] [place] [address]- 8064 10 Jul, 2013 [facility] [place] [facility] [address] [id number] [place] [address]- 3538 Jul, [facility] [place] [facility] [address] [id number] [place] [address]- 7920 Jul, [facility] [place] [facility] [address] [id number] [place] [address]- 4874 Jul, [facility] [place] [facility] [address] [id number] [place] [address]- 2565 Jul, [facility] [place] [facility] [address] [id number] [place] [address]- 6803 Jul, [facility] [place] [facility] [address] [id number] [place] [address]- 4170 Jul, [facility] [place] [facility] [address] [id number] [place] [address]- 8232 Jun, [facility] [place] [facility] [address] [id number] [place] [address]- 5955 Jun, [facility] [place] [facility] [address] [id number] [place] [address]- 6594 Jun, [facility] [place] [facility] [address] [id number] [place] [address]- 2186 Jun, [facility] [place] [facility] [address] [id number] [place] [address]- 8547 Jun, [facility] [place] [facility] [address] [id number] [place] [address]- 9457 Jun, [facility] [place] [facility] [address] [id number] [place] [address]- 6181 Jun, [facility] [place] [facility] [address] [id number] [place] [address]- 3672 Jun, [facility] [place] [facility] [address] [id number] [place] [address]- 0150 Jun, [facility] [place] [facility] [address] [id number] [place] [address]- 9800 Jun, [facility] [place] [facility] [address] [id number] [place] [address]- 6837 17 Jun, 2013 [facility] [address] [id number] [place] [address]- 3396 Jun, [facility] [place] [facility] [address] [id number] [place] [address]- 5636 May, [facility] [address] [id number] [place] [address]- 3299 May, [facility] [place] [facility] [address] [id number] [place] [address]- 2658 Apr, [facility] [address] [id number] [place] [address]- 8712 Apr, [facility] [address] [id number] [place] [address]- 5725 Apr, [facility] [address] [id number] [place] [address]- 7619 Apr, [facility] [address] [id number] [place] [address]- 2484 Apr, [facility] [place] [facility] [address] [id number] [place] [address]- 5182 Apr, [facility] [address] [id number] [place] [address]- 9899 Apr, [facility] [place] [facility] [address] [id number] [place] [address]- 6588 Apr, [facility] [place] [facility] [address] [id number] [place] [address]- 2057 Apr, [facility] [place] [facility] [address] [id number] [place] [address]- 7283 Apr, [facility] [place] [facility] [address] [id number] [place] [address]- 1386 Apr, [facility] [place] [facility] [address] [id number] [place] [address]- 8199 Mar, [facility] [address] [id number] [place] [address]- 1759 Mar, [facility] [place] [facility] [address] [id number] [place] [address]- 4786 Mar, [facility] [place] [facility] [address] [id number] [place]44 Mar, [facility] [place] [facility] [address] [id number] [place] [address]- 7079 Feb, [facility] [place] [facility] [address] [id number] [place] [address]- 7007 Feb, [facility] [place] [facility] [address] [id number] [place] [address]- 7069 Feb, [facility] [place] [facility] [address] [id number] [place] [address]- 4847 Feb, [facility] [place] [facility] [address] [id number], [place] [address]- 7708 Feb, [facility] [place] [facility] [address] [id number], [place] [address]- 5516 Feb, [facility] [place] [facility] [address] [facility] [id number], [place] [address]- 3842 Feb, [facility] [place] [facility] [address] [facility] [id number], [place] [address]- 5914 Feb, [facility] [place] [facility] [address] [id number], [place] [address]- 8808 Feb, [facility] [place] [facility] [address] [id number], [place] [address]- 0624 Feb, [facility] [place] [facility] [address] [id number], [place] [address]- 7930 Feb, [facility] [place] [facility] [address] [facility] [id number], [place] [address]- 1864 Jan, [facility] [place] [facility] [address] [id number], [place] [address]- 8863 25 Jan, 2013 [facility] [place] [facility] [address] [id number] [place] [address]- 5507 11 Jan, 2013 [facility] [place] [facility] [address] [id number] [place] [address]- 4563 11 Jan, 2013 [facility] [place] [facility] [address] [id number] [place] [address]- 2962 10 Jan, 2013 [facility] [place] [facility] [address] [id number] [place] [address]- 5828 10 Jan, 2013 [facility] [place] [facility] [address] [id number] [place] [address]- 5580 03 Jan, 2013 [facility] [place] [facility] [address] [id number] [place] [address]- 2588 02 Jan, 2013 [facility] [place] [facility] [address] [id number] [place] [address]- 3553 30 Sep, 2012 [facility] [place] [facility] [address] [id number] [place] [address]- 3945 25 Sep, 2012 [facility] [place] [facility] [address] [id number] [place] [address]- 4861 18 Sep, 2012 [facility] [place] [facility] [address] [facility] [id number] [place] [address]- 5857 17 Sep, 2012 [facility] [place] [facility] [address] [id number], [place] [address] 2541 17 Sep, 2012 [facility] [place] [facility] [address] [id number], [place] [address]- 2541 16 Sep, 2012 [facility] [place] [facility] [address] [id number] [place] [address]- 2547 13 Sep, 2012 [facility] [place] [facility] [address] [facility] [id number] [place] [address]- 2543 11 Sep, 2012 [facility] [place] [facility] [address] [facility] [id number] [place] [address]- 9805 05 Sep, 2012 [facility] [place] [facility] [address] [id number] [place] [address]- 2556 Dec, [facility] [place] [facility] [address] [id number] [place] [address]- 4903 Nov, [facility] [place] [facility] [address] [id number] [place] [address]- 7459 Nov, [facility] [place] [facility] [address] [id number] [place] [address]- 6446 Nov, [facility] [place] [facility] [address] [id number] [place] [address]- 1572 Nov, [facility] [place] [facility] [address] [id number] [place] [address]- 3141 Nov, [facility] [place] [facility] [address] [id number] [place] [address]- 8415 Nov, [facility] [place] [facility] [address] [id number] [place] [address]- 5489 Nov, [facility] [place] [facility] [address] [id number] [place] [address]- 9798 Oct, [facility] [place] [facility] [address] [id number] [place] [address]- 8982 Oct, [facility] [place] [facility] [address] [id number] [place] [address]- 8477 Oct, [facility] [place] [facility] [address] [id number] [place] [address]- 3014 Oct, [facility] [place] [facility] [address] [id number] [place] [address]- 2490 Oct, [facility] [place] [facility] [address] [id number] [place] [address]- 2563 Oct, [facility] [place] [facility] [address] [id number] [place] [address]- 6177 Sep, [facility] [place] [facility] [address] [id number] [place] [address]- 6178 28 Sep, 2012 [facility] [address] [id number] [place] [address]- 2914 27 Sep, 2012 [facility] [place] [facility] [address] [id number] [place] [address]- 9835 14 Sep, 2012 [facility] [place] [facility] [address] [id number] [place] [address]- 6768 13 Sep, 2012 [facility] [place] [facility] [address] [id number] [place] [address]- 5663 10 Sep, 2012 [facility] [place] [facility] [address] [id number] [place] [address]- 9107 07 Sep, 2012 [facility] [place] [facility] [address] [id number] [place] [address]- 0869 06 Sep, 2012 [facility] [place] [facility] [address] [id number] [place] [address]- 8774 Sep, [facility] [place] [facility] [address] [id number] [place] [address]- 4580 August, [facility] [place] [facility] [address] [id number] [place] [address]- 9616 August, [facility] [place] [facility] [address] [id number] [place] [address]- 1452 August, [facility] [place] [facility] [address] [id number] [place] [address]- 5255 August, [facility] [place] [facility] [address] [id number], [place] [address] August, [facility] [place] [facility] [address] [id number] [place] [address] August, [facility] [place] [facility] [address] [id number] [place] [address] August, [facility] [place] [facility] [address] [id number] [place] [address] August, [facility] [place] [facility] [address] [id number] [place] [address] Jul, [facility] [address] [id number] [place] [address] Jul, [facility] [address] [place] [id number] Jul [facility] [address] [id number] [place] [address] Jun, [facility] [address] [id number] [place] [address] Jun, [facility] [address] [id number] [place] [address] Jun, [facility] [address] [id number] [place] [address] Jun, [facility] [address] [id number] [place] [address] Jun, [facility] [address] [id number] [place] [address] Jun, [facility] [address] [id number] [place] [address] May, [facility] [address] [id number] [place] [address] May, [facility] [address] [id number] [place] [address] May, [facility] [address] [id number] [place] [address] May, [facility] [address] [id number] [place] [address] May, [facility] [address] [id number] [place] [address]- [address] Apr, [facility] [address] [id number] [place] [address] Apr, [facility] [place] [facility] [address] [id number] [place] [address]- [address] Apr, [facility] [place] [facility] [address] [id number] [place] [address]- [address] Apr, [facility] [place] [facility] [address] [id number] [place] [address] Apr, [facility] [place] [facility] [address] [id number] [place] [address]- [address] Apr, [facility] [place] [facility] [address] [id number] [place] [address]- [address] Mar, [facility] [place] [facility] [address] [id number] [place] [address] Mar, [facility] [place] [facility] [address] [id number] [place] [address] Mar, [facility] [place] [facility] [address] [id number] [place] [address]- 67[address] Mar, [facility] [place] [facility] [address] [id number] [place] [address]- [address] Mar, [facility] [place] [facility] [address] [id number] [place] [address] Mar, [facility] [place] [facility] [address] [id number] [place] [address] 18 Mar, 2012 [facility] [place] [facility] [address] [id number] [place] [address] Mar, [facility] [place] [facility] [address] [id number] [place] [address] 10 Mar, 2012 [facility] [place] [facility] [address] [id number] [place] [address]- [address] 05 Mar, 2012 [facility] [place] [facility] [address] [id number] [place] [address]- [address] 05 Mar, 2012 [facility] [place] [facility] [address] [id number] [place] [address] Feb, [facility] [place] [facility] [address] [id number] [place] [address] Feb, [facility] [place] [facility] [address] [id number] [place] [address] Feb, [facility] [place] [facility] [address] [id number] [place] [address]- [address] Feb, [facility] [place] [facility] [address] [id number] [place] [address]- [address] Feb, [facility] [place] [facility] [address] [id number] [place] [address]- 97[address] Feb, [facility] [place] [facility] [address] [id number] [place] [address]- [address] Feb, [facility] [place] [facility] [address] [id number] [place] [address]- 77[address] Feb, [facility] [place] [facility] [address] [id number] [place] [address]- 267[address] Feb, [facility] [place] [facility] [address] [id number] [place] [address]- [address] Feb, [facility] [place] [facility] [address] [id number] [place] [address]- 0745 Feb, [facility] [place] [facility] [address] [id number], [place] [address]- [address] Jan, [facility] [place] [facility] [address] [id number], [place] [address] Jan, [facility] [place] [facility] [address] [id number] [place] [address]- [address] Jan, [facility] [place] [facility] [address] [id number], [place] [address] Jan, [facility] [place] [facility] [address] [id number], [place] [address]- [address] 19 Jan, 2012 [facility] [place] [facility] [address] [id number] [place] [address]- 2631 19 Jan, 2012 [facility] [place] [facility] [address] [id number] [place] [address]- [address] 09 Jan, 2012 [facility] [place] [facility] [address] [id number] [place] [address]- [address] 24 Dec, 2011 [facility] [place] [facility] [address] [id number] [place] [address]- [address] 17 Dec, 2011 [facility] [place] [facility] [address] [id number] [place] [address]- 7917 13 Dec, 2011 [facility] [place] [facility] [address] [id number] [place] [address]- 8623 12 Dec, 2011 [facility] [place] [facility] [address] [id number] [place] [address]- 7547 23 Nov, 2011 [facility] [place] [facility] [address] [id number] [place] [address]- [address]101 Nov, [facility] [place] [facility] [address] [id number] [place] [address]- [address] Nov, [facility] [place] [facility] [address] [id number] [place] [address]- 377[address] 15 Nov, 2011 [facility] [place] [facility] [address] [id number] [place] [address]- 8325 14 Nov, 2011 [facility] [place] [facility] [address] [id number] [place] [address]- [address]247 Nov, [facility] [place] [facility] [address] [id number] [place] [address]- 67[address] Nov, [facility] [place] [facility] [address] [id number] [place] [address]- 288[address] Nov, [facility] [place] [facility] [address] [id number] [place] [address]- 6[address] Nov, [facility] [place] [facility] [address] [id number] [place] [address] Nov, [facility] [place] [facility] [address] [id number] [place] [address] Nov, [facility] [place] [facility] [address] [id number] [place] [address] Nov, [facility] [place] [facility] [address] [id number] [place] [address] Nov, [facility] [place] [facility] [address] [id number] [place] [address] Oct, [facility] [place] [facility] [address] [id number] [place] [address] Oct, [facility] [place] [facility] [address] [id number] [place] [address] Oct, [facility] [place] [facility] [address] [id number] [place] [address] Oct, [facility] [place] [facility] [address] [id number] [place] [address] Oct, [facility] [place] [facility] [address] [id number] [place] [address] Oct, [facility] [place] [facility] [address] [id number] [place] [address] Oct, [facility] [place] [facility] [address] [id number] [place] [address] Oct, [facility] [place] [facility] [address] [id number] [place] [address] Oct, [facility] [place] [facility] [address] [id number] [place] [address] Sep, [facility] [place] [facility] [address] [id number] [place] [address] Sep, [facility] [place] [facility] [address] [id number] [place] [address] Sep, [facility] [place] [facility] [address] [id number] [place] [address] Sep, [facility] [place] [facility] [address] [id number] [place] [address] Sep, [facility] [place] [facility] [address] [id number] [place] [address] Sep, [facility] [place] [facility] [address] [id number] [place] [address] Sep, [facility] [place] [facility] [address] [id number] [place] [address] Sep, [facility] [place] [facility] [address] [id number] [place] [address] August, [facility] [place] [facility] [address] [id number] [place] [address] August, [facility] [place] [facility] [address] [id number] [place] [address] August, [facility] [place] [facility] [address] [id number] [place] [address] August, [facility] [place] [facility] [address] [id number] [place] [address] August, [facility] [place] [facility] [address] [id number] [place] [address] August, [facility] [place] [facility] [address] [id number] [place] [address] August, [facility] [place] [facility] [address] [id number] [place] [address] August, [facility] [place] [facility] [address] [id number] [place] [address] August, [facility] [place] [facility] [address] [id number] [place] [address] August, [facility] [place] [facility] [address] [id number] [place] [address] August, [facility] [place] [facility] [address] [id number] [place] [id number] August, [facility] [address] [facility] [id number] [address] Oct, IMMUNIZATIONS No Known Immunizations SOCIAL HISTORY Never Assessed REASON FOR VISIT Medication Request PLAN OF CARE VITAL SIGNS MEDICATIONS Medication Instructions Dosage Frequency Start Date End Date Duration Status Clindamycin Phosphate 1 % Externally Twice a day 1 application to affected area 12h 14 Aug, 2017 Active RESULTS No Results PROCEDURES No Known [...] wound on buttocks 08/2012 Hospitalization History [facility], hypoxia secondary to pneumonia 12/02-12/09 Hospitalization History Pneumonia, elevated CO2 on Bipap was in ICU 08/2013 Hospitalization History Hypoxia, Exacerbation COPD, Chest pain 09/05/15 Hospitalization History suicidal ideations-[place] 12/28 Hospitalization History hypoxia--[facility] 02/13/2016 Hospitalization History shortness of breath at june 2016 Hospitalization History Shortness of breath at august 2016 Hospitalization History SOB, chest pain at 12/2016
--- OUTSIDE RECORDS SUMMARY | 2017-11-24 18:22 | XMS REPORT ---
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 [address] 42122- 0566 Jun, Type 2 diabetes mellitus with hyperglycemia E11.65 [facility] [address], [place] [address]- 8235 May, Unspecified mood [affective] disorder F39 [facility] [address] [facility] [id number], [place] [address]- 3539 May, [facility] [id number] [place] [address] 27840- 9506 May, [facility] [id number] [place] [address] 32112- 6341 May, [facility] [id number] [place] [address] 03790- 3624 Apr, [facility] [id number] [place] [address] 91553- 4363 Apr, Unspecified mood [affective] disorder F39 [facility] [id number] [place] [address] 55998- 6694 Apr, [facility] [id number] [place] [address] 01556- 3095 Apr, [facility] [id number] [place] [address] 15714- 9999 Apr, [facility] [address], [place] [address]- 2734 Apr, Dysuria R30.0 and Well woman exam (no gynecological exam) Z00.00 [facility] [address], [place] [address]- 9480 Mar, [facility] [id number] [place] [address] 98266- 6019 Mar, [facility] [address] [id number] Mar, Dental examination Z01.20 [facility] [id number] [place] [address] 12396- 3904 Mar, Chronic diarrhea K52.9 ; Intractable vomiting with nausea, vomiting of unspecified type R11.2 ; Cellulitis, unspecified cellulitis site L03.90 ; Type 2 diabetes mellitus with diabetic polyneuropathy E11.42 and Postinflammatory hyperpigmentation L81.0 [facility] [address], [place] [address]- 4376 Mar, Unspecified mood [affective] disorder F39 [facility] [address], [place] [address]- 6128 Mar, Unspecified mood [affective] disorder F39 [facility] [id number] [place] [address] 20260- 0818 Mar, [facility] [id number] [place] [address] 06111- 1790 Mar, [facility] [id number] [place] [address] 62511- 2157 Mar, [facility] [address], [place] [address]- 6604 Mar, [facility] [id number] [place] [address] 82344- 4332 Mar, [facility] [address], [place] [address]- 9154 Mar, [facility] [address], [place] [address]- 4758 Feb, Unspecified mood [affective] disorder F39 [facility] [address], [place] [address]- 9432 Feb, [facility] [address], [place] [address]- 5973 Feb, [facility] [address], [place] [address]- 8198 Jan, Unspecified mood [affective] disorder [id number] [id number] Jan, Encounter for dental examination Z01.20 [facility] [id number] [place] [address] 19989- 8289 Jan, [facility] [id number] [place] [address] 81410- 5817 Jan, [facility] [id number] [place] [address] 54988- 4735 Jan, [facility] [id number] [place] [address] 62398- 4046 Jan, [facility] [address] 26734- 5967 Jan, [facility] [id number] [place] [address] 36839- 7904 Jan, Abdominal abscess K65.1 and Dental caries K02.9 [facility] [id number] [place] [address] 87409- 3686 Jan, [facility] [id number] [place] [address] 86276- 6083 30 Dec, 2014 Diabetes with neurological manifestations, type II or unspecified type, not stated as uncontrolled 250.60 ; Essential hypertension, benign 401.1 ; Concussion 850.9 and Skin texture changes 782.8 [facility] [id number] [place] [address] 57385- 2600 Dec, [facility] [id number] [place] [address] 20356- 1879 Dec, [facility] [id number] [place] [address] 21539- 0718 Dec, [facility] [id number] [place] [address] 28773- 3828 Dec, [facility] [id number] [place] [address] 57423- 9393 17 Dec, 2014 Affective disorder 296.90 [facility] [address], [place] [address] 2546 14 Dec, 2014 [facility] [address], [place] [address] 2546 10 Dec, 2014 Affective disorder 296.90 [facility] [address], [place] [address] 2546 04 Dec, 2014 [facility] [address], [place] [address]- 2546 04 Dec, 2014 [facility] [address], [place] [address]- 2546 04 Dec, 2014 [facility] [id number] [place] [address] 11922 2546 Dec, 2014 [facility] [address], [place] [address] 2546 Nov, Affective disorder 296.90 [facility] [address], [place] [address] 2546 Nov, [facility] [address], [place] [address] 2546 Nov, Affective disorder 296.90 [facility] [address], [place] [address] 2546 Nov, Diarrhea 787.91 [facility] [address], [place] [address] 2546 Nov, [facility] [address], [place] [address] 2546 Nov, Diarrhea 787.91 [facility] [id number] [place] [address] 19082 2546 Nov, Diarrhea 787.91 and Hyperlipidemia 272.4 [facility] [address], [place] [address] 2546 Nov, Diarrhea 787.91 [facility] [id number], [place] [address]- 3836 Nov, Affective disorder 296.90 [facility] [address], [place] [address]- 5634 Nov, Affective disorder 296.90 [facility] [address], [place] [address]- 0376 17 Nov, 2014 Affective disorder 296.90 [facility] [address], [place] [address]- 4777 Nov, [facility] [address], [place] [address]- 4611 Nov, [facility] [address], [place] [address]- 2423 Nov, [facility] [address], [place] [address]- 4792 Nov, Episodic mood disorder 296.90 [facility] [address], [place] [address]- 4770 Nov, [facility] [address], [place] [address]- 1054 Nov, [facility] [address], [place] [address]- 3841 Nov, [facility] [address], [place] [address]- 6367 Nov, [facility] [address], [place] [address]- 2831 Nov, [facility] [address], [place] [address]- 2151 Nov, Lymphedema 457.1 ; Hyperlipidemia 272.4 ; Essential hypertension, benign 401.1 and Numbness of toes 782.0 [facility] [address], [place] [address]- 9195 Nov, Episodic mood disorder 296.90 [facility] [id number] [place] [address]- 1709 27 Oct, 2014 [facility] [address] [id number] [place] [address]- 2813 Oct, 2014 [facility] [address] [facility] [id number] [place] [address]- 7066 Oct, 2014 [facility] [address] [facility] [id number] [place] [address]- 8919 Oct, 2014 [facility] [address] [facility] [id number] [place] [address]- 6190 Oct, 2014 [facility] [address] [facility] [id number] [place] [address]- 6857 Oct, 2014 [facility] [address] [facility] [id number] [place] [address]- 2551 Oct, 2014 [facility] [id number] [place] [address]- 6345 Oct, 2014 [facility] [address] [facility] [id number] [place] [address]- 3731 Oct, Episodic mood disorder 296.90 [facility] [id number] [place] [address]- 1600 Sep, [facility] [id number] [place] [address]- 4733 Sep, [facility] [address] [facility] [id number], [place] [address]- 7840 Sep, [facility] [address] [facility] [id number], [place] [address]- 3710 Sep, [facility] [address] [facility] [id number] [place] [address]- 6192 Sep, [facility] [address] [facility] [id number] [place] [address]- 4660 Sep, Episodic mood disorder 296.90 [facility] [id number], [place] [address]- 2076 Sep, Unspecified episodic mood disorder 296.90 [facility] [address], [place] [address]- 5523 Sep, [facility] [address], [place] [address]- 5066 Sep, [facility] [id number] [place] [address] 81467- 1184 Sep, Episodic mood disorder 296.90 [facility] [id number] [place] [address] 24613- 0462 Sep, [facility] [id number] [place] [address] 14645- 6750 Sep, [facility] [id number] [place] [address] 09500- 7279 Sep, [facility] [id number] [place] [address] 38392- 8020 Sep, Hematemesis 578.0 and Vomiting 787.03 [facility] [address], [place] [address]- 3196 Sep, Episodic mood disorder 296.90 [facility] [address], [place] [address]- 3370 Sep, [facility] [address], [place] [address]- 2018 Sep, [facility] [address], [place] [address]- 8513 Sep, Diabetes mellitus without mention of complication, type II or unspecified type, not stated as uncontrolled 250.00 and Other chronic pain 338.29 [facility] [address], [place] [address]- 6477 Sep, Episodic mood disorder 296.90 [facility] [address], [place] [address]- 8172 Sep, [facility] [address] [facility] [id number] [place] [address]- 2352 Sep, Episodic mood disorder 296.90 [facility] [address] [facility] [id number] [place] [address]- 0696 Sep, [facility] [address] [facility] [id number] [place] [address]- 8483 August, [facility] [address] [facility] [id number] [place] [address]- 4592 August, [facility] [address] [facility] [id number] [place] [address]- 7098 August, Episodic mood disorder 296.90 [facility] [id number] [place] [address]- 9842 August, [facility] [address] [place] [address]- 8014 August, Unspecified episodic mood disorder 296.90 [facility] [address] [id number] [place] [address] August, Vomiting 787.03 [facility] [id number] [place] [address] August, [facility] [address] [id number] [address] August, [facility] [id number] [place] [address] August, [facility] [address] [id number] [address] August, [facility] [address] [id number] [place] [address] August, [facility] [address] [facility] [id number] [place] [id number] Jul, [facility] [address] [id number] [place] [address] Jul, [facility] [place] [facility] [address] [id number] [place] [address] 13 Jul, 2014 [facility] [place] [facility] [address] [id number] [place] [address] 30 Jun, 2014 [facility] [place] [facility] [address] [id number] [place] [address] 30 Jun, 2014 [facility] [place] [facility] [address] [id number] [place] [address] 30 Jun, 2014 [facility] [place] [facility] [address] [id number] [place] [address] 30 Jun, 2014 [facility] [place] [facility] [address] [id number] [place] [address] 30 Jun, 2014 [facility] [place] [facility] [address] [id number] [place] [address] 30 Jun, 2014 [facility] [place] [facility] [address] [id number] [place] [address] 30 Jun, 2014 [facility] [place] [facility] [address] [id number] [place] [address] 30 Jun, 2014 [facility] [place] [facility] [address] [id number] [place] [address] Jun, [facility] [place] [facility] [address] [id number] [place] [address] Jun, [facility] [place] [facility] [address] [id number] [place] [address] Jun, [facility] [place] [facility] [address] [id number] [place] [address] Jun, [facility] [place] [facility] [address] [id number] [place] [address] Jun, [facility] [place] [facility] [address] [id number] [place] [address] Jun, [facility] [place] [facility] [address] [id number] [place] [address]- [address] 24 Jun, 2014 [facility] [place] [facility] [address] [id number] [place] [address] 23 Jun, 2014 [facility] [place] [facility] [address] [id number] [place] [address] 23 Jun, 2014 [facility] [place] [facility] [address] [id number] [place] [address] 23 Jun, 2014 [facility] [place] [facility] [address] [id number] [place] [address] 23 Jun, 2014 [facility] [place] [facility] [address] [id number] [place] [address] 21 Jun, 2014 [facility] [place] [facility] [address] [id number] [place] [address] 21 Jun, 2014 [facility] [place] [facility] [address] [address] [id number] [place] [address] 20 Jun, 2014 [facility] [place] [facility] [address] [id number] [place] [address] 1104 20 Jun, 2014 [facility] [place] [facility] [address] [id number] [place] [address] 8107 20 Jun, 2014 [facility] [place] [facility] [address] [id number] [place] [address]- 0697 20 Jun, 2014 [facility] [place] [facility] [address] [id number] [place] [address]- 5673 19 Jun, 2014 [facility] [place] [facility] [address] [id number] [place] [address]- 7253 19 Jun, 2014 [facility] [place] [facility] [address] [id number] [place] [address]- 9079 18 Jun, 2014 [facility] [place] [facility] [address] [id number] [place] [address]- 1130 18 Jun, 2014 [facility] [place] [facility] [address] [id number] [place] [address]- 2765 17 Jun, 2014 [facility] [place] [facility] [address] [id number] [place] [address]- 4266 17 Jun, 2014 [facility] [place] [facility] [address] [id number] [place] [address]- 0665 16 Jun, 2014 [facility] [place] [facility] [address] [id number] [place] [address]- 6386 16 Jun, 2014 [facility] [place] [facility] [address] [id number] [place] [address]- 9553 16 Jun, 2014 [facility] [place] [facility] [address] [id number] [place] [address]- 9657 16 Jun, 2014 [facility] [place] [facility] [address] [id number] [place] [address]- 1020 16 Jun, 2014 [facility] [place] [facility] [address] [id number] [place] [address]- 4607 16 Jun, 2014 [facility] [place] [facility] [address] [id number] [place] [address]- 8189 13 Jun, 2014 [facility] [place] [facility] [address] [id number] [place] [address]- 0020 13 Jun, 2014 [facility] [place] [facility] [address] [id number] [place] [address]- 4040 12 Jun, 2014 [facility] [place] [facility] [address] [id number] [place] [address]- 9285 12 Jun, 2014 [facility] [place] [facility] [address] [id number] [place] [address]- 3685 Jun, 2014 [facility] [place] [facility] [address] [id number] [place] [address]- 6356 Jun, 2014 [facility] [place] [facility] [address] [id number] [place] [address]- 6233 Jun, 2014 [facility] [place] [facility] [address] [id number] [place] [address]- 0886 Jun, 2014 [facility] [place] [facility] [address] [id number] [place] [address]- 0240 Jun, [facility] [place] [facility] [address] [id number] [place] [address]- 0646 Jun, [facility] [place] [facility] [address] [id number] [place] [address]- 8196 Jun, [facility] [place] [facility] [address] [id number] [place] [address]- 6571 Jun, [facility] [place] [facility] [address] [id number] [place] [address]- 0091 Jun, [facility] [place] [facility] [address] [id number] [place] [address]- 4772 Jun, [facility] [place] [facility] [address] [id number] [place] [address]- 8840 Jun, [facility] [place] [facility] [address] [id number] [place] [address]- 2650 Jun, [facility] [place] [facility] [address] [id number] [place] [address]- 2002 Jun, [facility] [place] [facility] [address] [id number] [place] [address]- 3302 Jun, [facility] [place] [facility] [address] [id number] [place] [address]- 4777 Jun, [facility] [place] [facility] [address] [id number], [place] [address]- 9937 Jun, [facility] [place] [facility] [address] [id number], [place] [address]- 8716 May, [facility] [place] [facility] [address] [id number] [place] [address]- 6538 May, [facility] [place] [facility] [address] [id number] [place] [address]- 3277 May, [facility] [place] [facility] [address] [id number] [place] [address]- 1163 May, [facility] [place] [facility] [address] [id number] [place] [address] 2548 24 May, 2014 [facility] [place] [facility] [address] [id number] [place] [address] 2546 24 May, 2014 [facility] [place] [facility] [address] [id number] [place] [address]- 2546 20 May, 2014 [facility] [place] [facility] [address] [id number] [place] [address]- 5756 20 May, 2014 [facility] [place] [facility] [address] [id number] [place] [address]- 2545 20 May, 2014 [facility] [place] [facility] [address] [id number] [place] [address]- 2825 20 May, 2014 [facility] [place] [facility] [address] [facility] [id number] [place] [address]- 8284 18 May, 2014 [facility] [place] [facility] [address] [facility] [id number] [place] [address]- 1716 18 May, 2014 [facility] [place] [facility] [address] [facility] [id number] [place] [address]- 2906 13 May, 2014 [facility] [place] [facility] [address] [facility] [id number] [place] [address]- 0954 13 May, 2014 [facility] [place] [facility] [address] [place] [id number] [place] [address] 6813 11 May, 2014 [facility] [place] [facility] [address] [facility] [id number], [place] [address]- 2544 11 May, 2014 [facility] [place] [facility] [address] [facility] [id number] [place] [address]- 2546 11 May, 2014 [facility] [place] [facility] [address] [facility] [id number] [place] [address]- 2546 11 May, 2014 [facility] [place] [facility] [address] [facility] [id number] [place] [address]- 2546 09 May, 2014 [facility] [place] [facility] [address] [facility] [id number] [place] [address]- 0793 May, 2014 [facility] [place] [facility] [address] [id number] [place] [address]- 7706 May, 2014 [facility] [place] [facility] [address] [id number] [place] [address]- 1226 May, 2014 [facility] [place] [facility] [address] [id number] [place] [address]- 0046 May, 2014 [facility] [place] [facility] [address] [id number] [place] [address]- 254 May, 2014 [facility] [place] [facility] [address] [id number] [place] [address]- 1094 May, 2014 [facility] [place] [facility] [address] [id number] [place] [address]- 8269 May, 2014 [facility] [place] [facility] [address] [id number] [place] [address]- 3913 May, 2014 [facility] [place] [facility] [address] [id number], [place] [address] 6849 Apr, [facility] [place] [facility] [address] [id number] [place] [address]- 8670 Apr, [facility] [place] [facility] [address] [facility] [id number] [place] [address]- 8852 Apr, [facility] [place] [facility] [address] [id number] [place] [address]- 2329 Apr, [facility] [place] [facility] [address] [id number], [place] [address]- 8539 Apr, [facility] [place] [facility] [address] [id number] [place] [address]- 5913 Apr, [facility] [place] [facility] [address] [id number] [place] [address]- 5595 Apr, [facility] [place] [facility] [address] [id number], [place] [address]- 9040 Apr, [facility] [place] [facility] [address] [id number] [place] [address]- 8085 Apr, [facility] [place] [facility] [address] [id number] [place] [address]- 5558 Apr, [facility] [place] [facility] [address] [id number] [place] [address]- 8619 Apr, [facility] [place] [facility] [address] [id number] [place] [address]- 3759 Apr, [facility] [place] [facility] [address] [id number] [place] [address]- 6844 Apr, [facility] [place] [facility] [address] [id number] [place] [address]- 3531 Apr, [facility] [place] [facility] [address] [id number] [place] [address]- 5189 Apr, [facility] [place] [facility] [address] [id number] [place] [address]- 7980 Apr, [facility] [place] [facility] [address] [id number] [place] [address]- 2882 Apr, [facility] [place] [facility] [address] [id number] [place] [address]- 4665 Apr, [facility] [place] [facility] [address] [id number] [place] [address]- 6279 Apr, [facility] [place] [facility] [address] [id number], [place] [address]- 2554 Apr, [facility] [place] [facility] [address] [id number] [place] [address]- 1587 Mar, [facility] [place] [facility] [address] [id number] [place] [address]- 7555 Mar, [facility] [place] [facility] [address] [id number] [place] [address]- 6602 Mar, [facility] [place] [facility] [address] [id number] [place] [address]- 6413 24 Mar, 2014 [facility] [place] [facility] [address] [id number] [place] [address]- 8902 Mar, [facility] [place] [facility] [address] [id number] [place] [address]- 8634 Mar, [facility] [place] [facility] [address] [id number] [place] [address]- 8946 18 Mar, 2014 [facility] [place] [facility] [address] [id number] [place] [address]- 6052 18 Mar, 2014 [facility] [place] [facility] [address] [id number] [place] [address]- 4083 15 Mar, 2014 [facility] [place] [facility] [address] [id number] [place] [address]- 0112 15 Mar, 2014 [facility] [place] [facility] [address] [id number] [place] [address]- 7800 15 Mar, 2014 [facility] [place] [facility] [address] [id number] [place] [address]- 1396 15 Mar, 2014 [facility] [place] [facility] [address] [id number] [place] [address]- 4562 Mar, [facility] [place] [facility] [address] [id number] [place] [address]- 9007 Mar, [facility] [place] [facility] [address] [id number] [place] [address]- 4550 Mar, [facility] [place] [facility] [address] [id number] [place] [address]- 6582 Mar, [facility] [place] [facility] [address] [id number] [place] [address]- 6877 Feb, [facility] [place] [facility] [address] [id number] [place] [address]- 9319 Feb, [facility] [place] [facility] [address] [id number] [place] [address]- 7993 Feb, [facility] [place] [facility] [address] [id number] [place] [address]- 7096 20 Feb, 2014 [facility] [place] [facility] [address] [id number] [place] [address]- 1099 20 Feb, 2014 [facility] [place] [facility] [address] [id number] [place] [address]- 2377 19 Feb, 2014 [facility] [place] [facility] [address] [id number] [place] [address]- 0596 19 Feb, 2014 [facility] [place] [facility] [address] [id number] [place] [address]- 0676 18 Feb, 2014 [facility] [place] [facility] [address] [id number] [place] [address]- 4141 18 Feb, 2014 [facility] [place] [facility] [address] [id number] [place] [address]- 9508 17 Feb, 2014 [facility] [place] [facility] [address] [id number] [place] [address]- 8839 17 Feb, 2014 [facility] [place] [facility] [address] [id number] [place] [address]- 4453 17 Feb, 2014 [facility] [place] [facility] [address] [id number] [place] [address]- 0287 17 Feb, 2014 [facility] [place] [facility] [address] [id number] [place] [address]- 8354 14 Feb, 2014 [facility] [place] [facility] [address] [id number] [place] [address]- 2398 14 Feb, 2014 [facility] [place] [facility] [address] [id number] [place] [address]- 5993 14 Feb, 2014 [facility] [place] [facility] [address] [id number] [place] [address]- 5098 14 Feb, 2014 [facility] [place] [facility] [address] [id number] [place] [address]- 2073 10 Feb, 2014 [facility] [place] [facility] [address] [id number] [place] [address]- 0276 Feb, [facility] [place] [facility] [address] [id number] [place] [address]- 4320 Feb, [facility] [place] [facility] [address] [id number] [place] [address]- 9810 Feb, [facility] [place] [facility] [address] [id number] [place] [address]- 7865 Jan, [facility] [place] [facility] [address] [id number] [place] [address]- 8794 Jan, [facility] [place] [facility] [address] [id number] [place] [address]35 Jan, [facility] [place] [facility] [address] [id number] [place] [address]- 0932 Jan, [facility] [place] [facility] [address] [id number] [place] [address]- 7149 Jan, [facility] [place] [facility] [address] [id number], [place] [address]- 1286 Jan, [facility] [place] [facility] [address] [id number] [place] [address]- 3236 Jan, [facility] [place] [facility] [address] [id number] [place] [address]- 4445 Jan, [facility] [place] [facility] [address] [id number], [place] [address]- 3531 Jan, [facility] [place] [facility] [address] [id number], [place] [address]- 9878 Jan, [facility] [place] [facility] [address] [id number] [place] [address] Jan, [facility] [place] [facility] [address] [id number], [place] [address]- 5257 Jan, [facility] [place] [facility] [address] [id number] 0661 Jan, [facility] [place] [facility] [address] [id number] [place] [address]- 7108 17 Jan, 2014 [facility] [place] [facility] [address] [id number] [place] [address]- 8358 15 Jan, 2014 [facility] [place] [facility] [address] [id number] [place] [address]- 0812 15 Jan, 2014 [facility] [place] [facility] [address] [id number] [place] [address]- 4285 14 Jan, 2014 [facility] [place] [facility] [address] [id number] [place] [address]- 4411 14 Jan, 2014 [facility] [place] [facility] [address] [id number] [place] [address]- 2229 13 Jan, 2014 [facility] [place] [facility] [address] [id number] [place] [address]- 8999 13 Jan, 2014 [facility] [place] [facility] [address] [id number] [place] [address]- 7896 13 Jan, 2014 [facility] [place] [facility] [address] [id number] [place] [address]- 7918 13 Jan, 2014 [facility] [place] [facility] [address] [id number] [place] [address]- 0845 10 Jan, 2014 [facility] [place] [facility] [address] [id number] [place] [address]- 7107 02 Jan, 2014 [facility] [place] [facility] [address] [id number] [place] [address]- 1139 Jan, [facility] [place] [facility] [address] [id number] [place] [address]- 1238 Dec, [facility] [place] [facility] [address] [id number] [place] [address]- 9335 Dec, [facility] [place] [facility] [address] [id number] [place] [address]- 0526 Dec, [facility] [place] [facility] [address] [id number] [place] [address]- 8745 Dec, 2013 [facility] [place] [facility] [address] [id number] [place] [address]- 8843 19 Sep, 2013 [facility] [place] [facility] [address] [id number] [place] [address]- 7643 19 Sep, 2013 [facility] [place] [facility] [address] [id number] [place] [address]- 2996 17 Sep, 2013 [facility] [place] [facility] [address] [id number] [place] [address]- 3041 17 Sep, 2013 [facility] [place] [facility] [address] [id number] [place] [address]- 6640 09 Sep, 2013 [facility] [place] [facility] [address] [id number] [place] [address]- 8907 09 Sep, 2013 [facility] [place] [facility] [address] [id number] [place] [address]- 9697 08 Sep, 2013 [facility] [place] [facility] [address] [id number] [place] [address]- 4136 08 Sep, 2013 [facility] [place] [facility] [address] [id number] [place] [address]- 7067 04 Sep, 2013 [facility] [place] [facility] [address] [id number] [place] [address]- 3887 04 Sep, 2013 [facility] [place] [facility] [address] [id number] [place] [address]- 9647 02 Sep, 2013 [facility] [place] [facility] [address] [id number] [place] [address]- 2540 02 Sep, 2013 [facility] [place] [facility] [address] [id number] [place] [address]- 2548 Sep, 2013 [facility] [place] [facility] [address] [id number] [place] [address]- 2541 Dec, 2013 [facility] [place] [facility] [address] [id number] [place] [address]- 8767 Nov, 2013 [facility] [place] [facility] [address] [id number] [place] [address]- 6240 Nov, [facility] [place] [facility] [address] [id number] [place] [address]- 6783 Nov, [facility] [place] [facility] [address] [id number] [place] [address]- 9306 Nov, [facility] [place] [facility] [address] [id number] [place] [address]- 2166 Nov, [facility] [place] [facility] [address] [id number] [place] [address]- 1358 Nov, [facility] [place] [facility] [address] [id number] [place] [address]- 0095 Nov, [facility] [place] [facility] [address] [id number] [place] [address]- 1280 Nov, [facility] [place] [facility] [address] [id number] [place] [address]- 6914 Nov, [facility] [place] [facility] [address] [id number] [place] [address]- 1101 Nov, [facility] [place] [facility] [address] [id number] [place] [address]- 5699 Nov, [facility] [place] [facility] [address] [id number] [place] [address]- 0521 Nov, [facility] [place] [facility] [address] [id number] [place] [address]- 5104 Oct, [facility] [place] [facility] [address] [id number] [place] [address]- 2456 Oct, [facility] [place] [facility] [address] [id number] [place] [address]- 3903 Oct, [facility] [place] [facility] [address] [id number] [place] [address]- 5607 Oct, [facility] [place] [facility] [address] [id number] [place] [address]- 6530 Oct, [facility] [place] [facility] [address] [id number] [place] [address]- 8521 24 Oct, 2013 [facility] [place] [facility] [address] [id number] [place] [address]- 3562 Oct, [facility] [place] [facility] [address] [id number] [place] [address]- 4675 Oct, [facility] [place] [facility] [address] [id number] [place] [address]- 6872 Oct, [facility] [place] [facility] [address] [id number] [place] [address]- 8841 Oct, [facility] [place] [facility] [address] [id number] [place] [address]- 6332 Oct, [facility] [place] [facility] [address] [id number] [place] [address]- 2773 16 Oct, 2013 [facility] [place] [facility] [address] [id number] [place] [address]- 4535 Oct, [facility] [place] [facility] [address] [id number] [place] [address]- 1345 14 Oct, 2013 [facility] [place] [facility] [address] [id number] [place] [address]- 4740 Oct, [facility] [place] [facility] [address] [id number] [place] [address]- 2981 Oct, [facility] [place] [facility] [address] [id number] [place] [address]- 4500 Oct, [facility] [place] [facility] [address] [id number] [place] [address]- 1439 Sep, [facility] [place] [facility] [address] [id number] [place] [address]- 2122 Sep, [facility] [place] [facility] [address] [id number] [place] [address]- 4298 Sep, [facility] [place] [facility] [address] [id number] [place] [address] Sep, [facility] [place] [facility] [address] [id number] [place] [address] 18 Sep, 2013 [facility] [place] [facility] [address] [id number] [place] [address] 18 Sep, 2013 [facility] [place] [facility] [address] [id number] [place] [address] 17 Sep, 2013 [facility] [place] [facility] [address] [id number] [place] [address] Sep, [facility] [place] [facility] [address] [id number] [place] [address] Sep, [facility] [place] [facility] [address] [id number] [place] [address] Sep, [facility] [place] [facility] [address] [id number] [place] [address] Sep, [facility] [place] [facility] [address] [id number] [place] [address] Sep, [facility] [place] [facility] [address] [id number] [place] [address]16 Sep, [facility] [place] [facility] [address] [id number] [place] [address] Sep, [facility] [place] [facility] [address] [id number] [place] [address]395 Sep, [facility] [place] [facility] [address] [id number] [place] [address]15 Sep, [facility] [place] [facility] [address] [id number] [place] [address]- [address]293 Sep, [facility] [place] [facility] [address] [id number] [place] [address]- [address]378 07 Sep, 2013 [facility] [place] [facility] [address] [id number] [place] [address]- 7699 05 Sep, 2013 [facility] [place] [facility] [address] [id number] [place] [address] Sep, [facility] [address] [id number] [place] [address] Sep, [facility] [place] [facility] [address] [id number] [place] [address] 7467 Sep, [facility] [place] [facility] [address] [id number] [place] [address]- [address] August, [facility] [place] [facility] [address] [id number] [place] [address]- [address]207 August, [facility] [place] [facility] [address] [id number] [place] [address]- [address]257 August, [facility] [place] [facility] [address] [id number] [place] [address] August, [facility] [address] [id number] [place] [address] 1382 August, [facility] [place] [facility] [address] [id number] [place] [address]- 7265 August, [facility] [place] [facility] [address] [id number] [place] [address]- [address]185 August, [facility] [place] [facility] [address] [id number] [place] [address]659 August, [facility] [place] [facility] [address] [id number] [place] [address]- 25[address] August, [facility] [place] [facility] [address] [id number] [place] [address]- 3060 August, [facility] [place] [facility] [address] [id number] [place] [address] August, [facility] [place] [facility] [address] [id number] [place] [address] Jul, [facility] [place] [facility] [address] [id number] [place] [address]- 8586 Jul, [facility] [place] [facility] [address] [id number] [place] [address]- [address] 25 Jul, 2013 [facility] [place] [facility] [address] [id number] [place] [address] 8218 25 Jul, 2013 [facility] [place] [facility] [address] [id number] [place] [address]- 4864 23 Jul, 2013 [facility] [place] [facility] [address] [id number] [place] [address]- 1469 23 Jul, 2013 [facility] [place] [facility] [address] [id number] [place] [address] Jul, [facility] [place] [facility] [address] [id number] [place] [address]- 69[address] Jul, [facility] [place] [facility] [address] [id number] [place] [address]- 4482 18 Jul, 2013 [facility] [place] [facility] [address] [id number] [place] [address]- 6291 18 Jul, 2013 [facility] [place] [facility] [address] [id number] [place] [address]- 8438 16 Jul, 2013 [facility] [place] [facility] [address] [id number] [place] [address]- 0139 14 Jul, 2013 [facility] [place] [facility] [address] [id number] [place] [address]- [address]124 14 Jul, 2013 [facility] [place] [facility] [address] [id number] [place] [address]- 1133 11 Jul, 2013 [facility] [place] [facility] [address] [id number] [place] [address]- 4285 11 Jul, 2013 [facility] [place] [facility] [address] [id number] [place] [address]- 8350 10 Jul, 2013 [facility] [place] [facility] [address] [id number] [place] [address]- 6258 10 Jul, 2013 [facility] [place] [facility] [address] [id number] [place] [address]- 8598 Jul, [facility] [place] [facility] [address] [id number] [place] [address]- [address] Jul, [facility] [place] [facility] [address] [id number] [place] [address]- 5097 Jul, [facility] [place] [facility] [address] [id number] [place] [address]- 6383 Jul, [facility] [place] [facility] [address] [id number] [place] [address]- 4205 Jul, [facility] [place] [facility] [address] [id number] [place] [address]- 2020 Jul, [facility] [place] [facility] [address] [id number] [place] [address]- [address]672 Jun, [facility] [place] [facility] [address] [id number] [place] [address]- 9798 Jun, [facility] [place] [facility] [address] [id number] [place] [address]- 1186 Jun, [facility] [place] [facility] [address] [id number] [place] [address]- 1489 Jun, [facility] [place] [facility] [address] [id number] [place] [address]- 0460 Jun, [facility] [place] [facility] [address] [id number] [place] [address]- 7051 Jun, [facility] [place] [facility] [address] [id number] [place] [address]- 3170 Jun, [facility] [place] [facility] [address] [id number] [place] [address]- 5673 Jun, [facility] [place] [facility] [address] [id number] [place] [address]- 4687 Jun, [facility] [place] [facility] [address] [id number] [place] [address]- 7158 Jun, [facility] [place] [facility] [address] [id number] [place] [address]- 7270 17 Jun, 2013 [facility] [address] [id number] [place] [address]- 0442 Jun, [facility] [place] [facility] [address] [id number] [place] [address]- 6534 May, [facility] [address] [id number] [place] [address]- 1260 May, [facility] [place] [facility] [address] [id number] [place] [address]- 3065 Apr, [facility] [address] [id number] [place] [address]- 7460 Apr, [facility] [address] [id number] [place] [address]- 2994 Apr, [facility] [address] [id number] [place] [address]- 7926 Apr, [facility] [address] [id number] [place] [address] Apr, [facility] [place] [facility] [address] [id number] [place] [address] Apr, [facility] [address] [id number] [place] [address] Apr, [facility] [place] [facility] [address] [id number] [place] [address] Apr, [facility] [place] [facility] [address] [id number] [place] [address] Apr, [facility] [place] [facility] [address] [id number] [place] [address] 1178 Apr, [facility] [place] [facility] [address] [id number] [place] [address] 0166 Apr, [facility] [place] [facility] [address] [id number] [place] [address] 1632 Mar, [facility] [address] [id number] [place] [address] 2631 Mar, [facility] [place] [facility] [address] [id number] [place] [address] 4716 Mar, [facility] [place] [facility] [address] [id number] [place] [address] Mar, [facility] [place] [facility] [address] [id number] [place] [address] 7067 Feb, [facility] [place] [facility] [address] [id number] [place] [address] 7766 Feb, [facility] [place] [facility] [address] [id number] [place] [address] 4205 Feb, [facility] [place] [facility] [address] [id number] [place] [address] 7411 Feb, [facility] [place] [facility] [address] [id number], [place] [address] Feb, [facility] [place] [facility] [address] [id number], [place] [address]- 7077 Feb, [facility] [place] [facility] [address] [facility] [id number], [place] [address] 2[address] Feb, [facility] [place] [facility] [address] [facility] [id number], [place] [address] 4[address] Feb, [facility] [place] [facility] [address] [id number], [place] [address] 5[address] Feb, [facility] [place] [facility] [address] [id number], [place] [address] 3[address] Feb, [facility] [place] [facility] [address] [id number], [place] [address] 74[address] Feb, [facility] [place] [facility] [address] [facility] [id number], [place] [address] 6609 Jan, [facility] [place] [facility] [address] [id number], [place] [address] 8945 25 Jan, 2013 [facility] [place] [facility] [address] [id number] [place] [address]- 0012 11 Jan, 2013 [facility] [place] [facility] [address] [id number] [place] [address]- 8904 11 Jan, 2013 [facility] [place] [facility] [address] [id number] [place] [address]- 0807 10 Jan, 2013 [facility] [place] [facility] [address] [id number] [place] [address]- 0558 10 Jan, 2013 [facility] [place] [facility] [address] [id number] [place] [address]- 2200 03 Jan, 2013 [facility] [place] [facility] [address] [id number] [place] [address]- 4753 02 Jan, 2013 [facility] [place] [facility] [address] [id number] [place] [address]- 1758 30 Sep, 2012 [facility] [place] [facility] [address] [id number] [place] [address]- 7857 25 Sep, 2012 [facility] [place] [facility] [address] [id number] [place] [address]- 2691 18 Sep, 2012 [facility] [place] [facility] [address] [facility] [id number] [place] [address]- 3476 17 Sep, 2012 [facility] [place] [facility] [address] [id number], [place] [address] 2542 17 Sep, 2012 [facility] [place] [facility] [address] [id number], [place] [address]- 2543 16 Sep, 2012 [facility] [place] [facility] [address] [id number] [place] [address]- 2541 13 Sep, 2012 [facility] [place] [facility] [address] [facility] [id number] [place] [address]- 2543 11 Sep, 2012 [facility] [place] [facility] [address] [facility] [id number] [place] [address]- 6206 05 Sep, 2012 [facility] [place] [facility] [address] [id number] [place] [address]- 2903 Dec, [facility] [place] [facility] [address] [id number] [place] [address]- 5997 Nov, [facility] [place] [facility] [address] [id number] [place] [address]- 0054 Nov, [facility] [place] [facility] [address] [id number] [place] [address] 3938 Nov, [facility] [place] [facility] [address] [id number] [place] [address]- 4672 Nov, [facility] [place] [facility] [address] [id number] [place] [address]- 5625 Nov, [facility] [place] [facility] [address] [id number] [place] [address] 4975 Nov, [facility] [place] [facility] [address] [id number] [place] [address]- 3532 Nov, [facility] [place] [facility] [address] [id number] [place] [address]- 5182 Oct, [facility] [place] [facility] [address] [id number] [place] [address] 9221 Oct, [facility] [place] [facility] [address] [id number] [place] [address] 1300 Oct, [facility] [place] [facility] [address] [id number] [place] [address]- 4050 Oct, [facility] [place] [facility] [address] [id number] [place] [address]- 9355 Oct, [facility] [place] [facility] [address] [id number] [place] [address]- 0881 Oct, [facility] [place] [facility] [address] [id number] [place] [address]- 2647 Sep, [facility] [place] [facility] [address] [id number] [place] [address]- 5414 28 Sep, 2012 [facility] [address] [id number] [place] [address]- 2162 27 Sep, 2012 [facility] [place] [facility] [address] [id number] [place] [address]- 0354 14 Sep, 2012 [facility] [place] [facility] [address] [id number] [place] [address]- 6728 13 Sep, 2012 [facility] [place] [facility] [address] [id number] [place] [address]- 5915 10 Sep, 2012 [facility] [place] [facility] [address] [id number] [place] [address]- 7547 07 Sep, 2012 [facility] [place] [facility] [address] [id number] [place] [address]- 0769 06 Sep, 2012 [facility] [place] [facility] [address] [id number] [place] [address]- 7824 Sep, [facility] [place] [facility] [address] [id number] [place] [address]- 4924 August, [facility] [place] [facility] [address] [id number] [place] [address]- 4940 August, [facility] [place] [facility] [address] [id number] [place] [address]- 2210 August, [facility] [place] [facility] [address] [id number] [place] [address]- 0882 August, [facility] [place] [facility] [address] [id number], [place] [address]- 0759 August, [facility] [place] [facility] [address] [id number] [place] [address]- 5279 August, [facility] [place] [facility] [address] [id number] [place] [address]- 9313 August, [facility] [place] [facility] [address] [id number] [place] [address]- 6012 August, [facility] [place] [facility] [address] [id number] [place] [address]- 7497 Jul, [facility] [address] [id number] [place] [address]- 8817 Jul, [facility] [address] [place] [id number] Jul [facility] [address] [id number] [place] [address]- 8190 Jun, [facility] [address] [id number] [place] [address]- 4136 Jun, [facility] [address] [id number] [place] [address]- 3376 Jun, [facility] [address] [id number] [place] [address]- 7457 Jun, [facility] [address] [id number] [place] [address]- 5061 Jun, [facility] [address] [id number] [place] [address]- 3933 Jun, [facility] [address] [id number] [place] [address]- 0475 May, [facility] [address] [id number] [place] [address]- 3768 May, [facility] [address] [id number] [place] [address]- 0962 May, [facility] [address] [id number] [place] [address]- 8045 May, [facility] [address] [id number] [place] [address]- 8779 May, [facility] [address] [id number] [place] [address]- 0954 Apr, [facility] [address] [id number] [place] [address]- 4426 Apr, [facility] [place] [facility] [address] [id number] [place] [address]- 5356 Apr, [facility] [place] [facility] [address] [id number] [place] [address]- 6066 Apr, [facility] [place] [facility] [address] [id number] [place] [address]- 8306 Apr, [facility] [place] [facility] [address] [id number] [place] [address]- 9806 Apr, [facility] [place] [facility] [address] [id number] [place] [address]- 4808 Mar, [facility] [place] [facility] [address] [id number] [place] [address]- 3427 Mar, [facility] [place] [facility] [address] [id number] [place] [address]- 0830 Mar, [facility] [place] [facility] [address] [id number] [place] [address]- 6334 Mar, [facility] [place] [facility] [address] [id number] [place] [address]- 5787 Mar, [facility] [place] [facility] [address] [id number] [place] [address]- 0148 Mar, [facility] [place] [facility] [address] [id number] [place] [address] 18 Mar, 2012 [facility] [place] [facility] [address] [id number] [place] [address]- 1696 Mar, [facility] [place] [facility] [address] [id number] [place] [address]- 8316 10 Mar, 2012 [facility] [place] [facility] [address] [id number] [place] [address]- 4716 05 Mar, 2012 [facility] [place] [facility] [address] [id number] [place] [address]- 8776 05 Mar, 2012 [facility] [place] [facility] [address] [id number] [place] [address]- 4953 Feb, [facility] [place] [facility] [address] [id number] [place] [address]- 7978 Feb, [facility] [place] [facility] [address] [id number] [place] [address]- 1295 Feb, [facility] [place] [facility] [address] [id number] [place] [address]- 9864 Feb, [facility] [place] [facility] [address] [id number] [place] [address]- 3995 Feb, [facility] [place] [facility] [address] [id number] [place] [address]- 3640 Feb, [facility] [place] [facility] [address] [id number] [place] [address]- 6566 Feb, [facility] [place] [facility] [address] [id number] [place] [address]- 1679 Feb, [facility] [place] [facility] [address] [id number] [place] [address]- 1223 Feb, [facility] [place] [facility] [address] [id number] [place] [address]- 5983 Feb, [facility] [place] [facility] [address] [id number] [place] [address]- 6669 Feb, [facility] [place] [facility] [address] [id number], [place] [address]- 9374 Jan, [facility] [place] [facility] [address] [id number], [place] [address]- 5937 Jan, [facility] [place] [facility] [address] [id number] [place] [address]- 8015 Jan, [facility] [place] [facility] [address] [id number], [place] [address]- 8345 Jan, [facility] [place] [facility] [address] [id number], [place] [address]- 8409 19 Jan, 2012 [facility] [place] [facility] [address] [id number] [place] [address]- 3763 19 Jan, 2012 [facility] [place] [facility] [address] [id number] [place] [address]- 5916 09 Jan, 2012 [facility] [place] [facility] [address] [id number] [place] [address]- 1056 24 Dec, 2011 [facility] [place] [facility] [address] [id number] [place] [address]- 5986 17 Dec, 2011 [facility] [place] [facility] [address] [id number] [place] [address]- 9190 13 Dec, 2011 [facility] [place] [facility] [address] [id number] [place] [address]- 3161 12 Dec, 2011 [facility] [place] [facility] [address] [id number] [place] [address]- 2351 23 Nov, 2011 [facility] [place] [facility] [address] [id number] [place] [address]- 8081 Nov, [facility] [place] [facility] [address] [id number] [place] [address]- 0561 Nov, [facility] [place] [facility] [address] [id number] [place] [address]- 6230 15 Nov, 2011 [facility] [place] [facility] [address] [id number] [place] [address]- 6138 14 Nov, 2011 [facility] [place] [facility] [address] [id number] [place] [address]- 0707 Nov, [facility] [place] [facility] [address] [id number] [place] [address]- 8496 Nov, [facility] [place] [facility] [address] [id number] [place] [address]- 5860 Nov, [facility] [place] [facility] [address] [id number] [place] [address]- 4027 Nov, [facility] [place] [facility] [address] [id number] [place] [address]- 9311 Nov, [facility] [place] [facility] [address] [id number] [place] [address]- 9904 Nov, [facility] [place] [facility] [address] [id number] [place] [address]- 3059 Nov, [facility] [place] [facility] [address] [id number] [place] [address]- 8750 Nov, [facility] [place] [facility] [address] [id number] [place] [address]- 5135 Oct, [facility] [place] [facility] [address] [id number] [place] [address]- 4294 Oct, [facility] [place] [facility] [address] [id number] [place] [address]- 4119 Oct, [facility] [place] [facility] [address] [id number] [place] [address]- 2678 Oct, [facility] [place] [facility] [address] [id number] [place] [address]- 6725 Oct, [facility] [place] [facility] [address] [id number] [place] [address]- 6477 Oct, [facility] [place] [facility] [address] [id number] [place] [address]- 5648 Oct, [facility] [place] [facility] [address] [id number] [place] [address]- 0585 Oct, [facility] [place] [facility] [address] [id number] [place] [address]- 1307 Oct, [facility] [place] [facility] [address] [id number] [place] [address]- 4855 Sep, [facility] [place] [facility] [address] [id number] [place] [address]- 3148 Sep, [facility] [place] [facility] [address] [id number] [place] [address]- 2176 Sep, [facility] [place] [facility] [address] [id number] [place] [address]- 0586 Sep, [facility] [place] [facility] [address] [id number] [place] [address]- 6722 Sep, [facility] [place] [facility] [address] [id number] [place] [address]166 Sep, [facility] [place] [facility] [address] [id number] [place] [address]- 9251 Sep, [facility] [place] [facility] [address] [id number] [place] [address]- 3548 Sep, [facility] [place] [facility] [address] [id number] [place] [address]- 0469 August, [facility] [place] [facility] [address] [id number] [place] [address]- 9665 August, [facility] [place] [facility] [address] [id number] [place] [address]- 4877 August, [facility] [place] [facility] [address] [id number] [place] [address]- 4914 August, [facility] [place] [facility] [address] [id number] [place] [address]- 3178 August, [facility] [place] [facility] [address] [id number] [place] [address]- 3064 August, [facility] [place] [facility] [address] [id number] [place] [address]- 9235 August, [facility] [place] [facility] [address] [id number] [place] [address]- 4853 August, [facility] [place] [facility] [address] [id number] [place] [address]- 7713 August, [facility] [place] [facility] [address] [id number] [place] [address]- 0075 August, [facility] [place] [facility] [address] [id number] [place] [address]- 9228 August, [facility] [place] [facility] [address] [id number] [place] [address]- 2225 August, [facility] [address] [facility] [id number] [place] [address]- 9051 Oct, IMMUNIZATIONS No Known Immunizations SOCIAL HISTORY [...] Surgical History bladder surgery Hospitalization History [facility] for right groin pain 05/2011 Hospitalization History [facility] for wound on buttocks 08/2012 Hospitalization History Via [facility], hypoxia secondary to pneumonia 12/02-12/09 Hospitalization History Pneumonia, elevated CO2 on Bipap was in ICU 08/2013 Hospitalization History Hypoxia, Exacerbation COPD, Chest pain 09/05/15 Hospitalization History suicidal ideations-[place] 12/28 Hospitalization History hypoxia--[facility] 02/13/2016 Hospitalization History shortness of breath at june 2016 Hospitalization History Shortness of breath at august 2016 Hospitalization History SOB, chest pain at 12/2016
--- OUTSIDE RECORDS SUMMARY | 2017-11-24 18:24 | XMS REPORT ---
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.42 and Postinflammatory hyperpigmentation L81.0 [facility] [address] [address]- 4363 Mar, Unspecified mood [affective] disorder F39 [facility] [address] [address]- 1333 Mar, Unspecified mood [affective] disorder F39 [facility] [id number] [address]- 6464 Mar, [facility] [id number] [place] [address] 40618- 9356 Mar, [facility] [address] [address]- 4622 Mar, [facility] [id number] [place] [address] 90472- 3733 Mar, [facility] [address] [address]- 3525 Mar, [facility] [id number] [place] [address] 36768- 1945 Mar, [facility] [address] [address]- 0625 Feb, Unspecified mood [affective] disorder F39 [facility] [address] [address]- 4773 Feb, [facility] [address] [address]- 8254 Feb, [facility] [address] [address]- 3836 Jan, Unspecified mood [affective] disorder F39 [facility] [place] [id number] [facility] [address] [id number] [id number] Jan, Encounter for dental examination Z01.20 [facility] [id number] [place] [address] 60574- 8462 Jan, [facility] [id number] [place] [address] 49161- 5565 Jan, [facility] [id number] [place] [address] 73080- 2711 Jan, [facility] [address] 92660- 8033 Jan, [facility] [address] 67466- 8408 Jan, [facility] [address] 94986- 9182 Jan, Abdominal abscess K65.1 and Dental caries K02.9 [facility] [address] 57203- 0195 Jan, [facility] [address] 80395- 3258 30 Dec, 2014 Diabetes with neurological manifestations, type II or unspecified type, not stated as uncontrolled 250.60 ; Essential hypertension, benign 401.1 ; Concussion 850.9 and Skin texture changes 782.8 [facility] [id number] [place] [address] 87037- 0422 Dec, [facility] [id number] [place] [address] 04263- 2269 24 Dec, 2014 [facility] [id number] [place] [address] 93629- 5846 Dec, [facility] [id number] [place] [address] 34738- 7010 21 Dec, 2014 [facility] [id number] [place] [address] 47011- 7637 17 Dec, 2014 Affective disorder 296.90 [facility] [id number] [place] [address] 79027- 5117 14 Dec, 2014 [facility] [address], [place] [address] 2543 Dec, Affective disorder 296.90 [facility] [address], [place] [address] 2546 Dec, 2014 [facility] [address], [place] [address] 2546 Dec, 2014 [facility] [address], [place] [address] 2546 Dec, 2014 [facility] [address] [address] 2546 Dec, 2014 [facility] [address] [address] 2540 Nov, Affective disorder 296.90 [facility] [address], [place] [address]- 2364 Nov, [facility] [address], [place] [address] 2541 Nov, Affective disorder 296.90 [facility] [id number] [place] [address] 07875 2546 Nov, Diarrhea 787.91 [facility] [address] [address] 254 Nov, [facility] [address], [place] [address] 2546 Nov, Diarrhea 787.91 [facility] [address], [place] [address] 2546 Nov, Diarrhea 787.91 and Hyperlipidemia 272.4 [facility] [address] [address] 2546 Nov, Diarrhea 787.91 [facility] [address] [address] 2546 Nov, Affective disorder 296.90 [facility] [address] [address]- 8305 Nov, Affective disorder 296.90 [facility] [id number] [place] [address] 85559- 4743 Nov, Affective disorder 296.90 [facility] [address] [address]- 6877 Nov, [facility] [id number] [place] [address] 96715- 8994 Nov, [facility] [address] [address]- 4238 Nov, [facility] [id number] [place] [address] 83663- 5588 Nov, Episodic mood disorder 296.90 [facility] [address] [address]- 1002 Nov, [facility] [id number] [place] [address] 10067- 6292 Nov, [facility] [id number] [place] [address] 43948- 5594 Nov, [facility] [id number] [place] [address] 46585- 7938 Nov, [facility] [address] [address]- 3021 Nov, [facility] [id number] [place] [address] 66494- 2240 Nov, Lymphedema 457.1 ; Hyperlipidemia 272.4 ; Essential hypertension, benign 401.1 and Numbness of toes 782.0 [facility] [address] [address]- 5811 Nov, Episodic mood disorder 296.90 [facility] [address], [place] [address]- 8114 Oct, [facility] [id number] [address]- 2138 20 Oct, 2014 [facility] [address] [facility] [id number] [place] [address]- 0091 Oct, 2014 [facility] [place] [facility] [address] [facility] [id number] [place] [address]- 9616 15 Oct, 2014 [facility] [place] [facility] [address] [facility] [id number] [place] [address]- 7414 14 Oct, 2014 [facility] [place] [facility] [address] [facility] [id number] [place] [address]- 0122 Oct, 2014 [facility] [place] [facility] [address] [facility] [id number] [place] [address]- 7904 Oct, 2014 [facility] [place] [facility] [address] [facility] [id number] [place] [address]- 6937 Oct, 2014 [facility] [address] [facility] [id number] [place] [address]- 7233 Oct, Episodic mood disorder 296.[address] [facility] [place] [facility] [address] [facility] [id number] [place] [address]- 2234 Sep, [facility] [place] [facility] [address] [facility] [id number] [place] [address]- 0651 Sep, [facility] [place] [facility] [address] [facility] [id number] [place] [address]- 1067 Sep, [facility] [place] [facility] [address] [facility] [id number] [address]- 4145 Sep, [facility] [place] [facility] [address] [facility] [id number] [place] [address]- 4808 Sep, [facility] [place] [facility] [address] [facility] [id number] [place] [address]- 7829 Sep, Episodic mood disorder 296.[address] [facility] [place] [facility] [address] [facility] [id number] [place] [address]- 7548 Sep, Unspecified episodic mood disorder 296.90 [facility] [address] [address]- 6537 Sep, [facility] [address] [address]- 0272 Sep, [facility] [id number] [place] [address] 21079- 2495 Sep, Episodic mood disorder 296.90 [facility] [id number] [place] [address] 51995- 3635 Sep, [facility] [id number] [place] [address] 32855- 6039 Sep, [facility] [id number] [place] [address] 92771- 4897 Sep, [facility] [id number] [place] [address] 19700- 7334 Sep, Hematemesis 578.0 and Vomiting 787.03 [facility] [id number] [place] [address] 95992- 3443 Sep, Episodic mood disorder 296.90 [facility] [address] [place] [address] 39452- 7052 Sep, [facility] [address], [place] [address]- 1007 Sep, [facility] [id number] [place] [address] 33784- 1909 Sep, Diabetes mellitus without mention of complication, type II or unspecified type, not stated as uncontrolled 250.00 and Other chronic pain 338.29 [facility] [address], [place] [address]- 9624 Sep, Episodic mood disorder 296.90 [facility] [id number] [place] [address] 70526- 4237 Sep, [facility] [address] [address]- 1058 Sep, Episodic mood disorder 296.90 [facility] [address] [facility] [id number] [place] [address]- 4416 Sep, [facility] [address] [facility] [id number] [place] [address]- 4303 August, [facility] [address] [facility] [id number] [place] 7186 August, [facility] [id number] [address]- 5651 August, Episodic mood disorder 296.90 [facility] [address] [facility] [id number] [place] [address] August, [facility] [id number] [address] August, Unspecified episodic mood disorder 296.90 [facility] [id number] [address] August, Vomiting 787.03 [facility] [address] [id number] [address] August, [facility] [id number] [place] [address] August, [facility] [address] [id number] [address] August, [facility] [id number] [address] August, [facility] [address] [id number] [address] August, [facility] [address] [id number] [place] [address] Jul, [facility] [address] [facility] [id number] [place] [id number] [address] Jul, [facility] [address] [id number] [address] Jul, [facility] [place] [facility] [address] [id number] [place] [address] 30 Jun, 2014 [facility] [place] [facility] [address] [id number] [place] [address] Jun, [facility] [place] [facility] [address] [id number] [place] [address] Jun, [facility] [place] [facility] [address] [id number] [place] [address] Jun, [facility] [place] [facility] [address] [id number] [place] [address] Jun, [facility] [place] [facility] [address] [id number] [place] [address] Jun, [facility] [place] [facility] [address] [id number] [place] [address] Jun, [facility] [place] [facility] [address] [id number] [place] [address] Jun, [facility] [place] [facility] [address] [id number] [place] [address] Jun, [facility] [place] [facility] [address] [id number] [place] [address] Jun, [facility] [place] [facility] [address] [id number] [place] [address] Jun, [facility] [place] [facility] [address] [id number] [place] [address] Jun, [facility] [place] [facility] [address] [id number] [place] [address]- [address] Jun, [facility] [place] [facility] [address] [id number] [place] [address] Jun, [facility] [place] [facility] [address] [id number] [place] [address] Jun, [facility] [place] [facility] [address] [id number] [place] [address]- [address] 23 Jun, 2014 [facility] [place] [facility] [address] [id number] [place] [address]- [address] 23 Jun, 2014 [facility] [place] [facility] [address] [id number] [place] [address] 23 Jun, 2014 [facility] [place] [facility] [address] [id number] [place] [address] 23 Jun, 2014 [facility] [place] [facility] [address] [id number] [place] [address] 21 Jun, 2014 [facility] [place] [facility] [address] [id number] [place] [address] 66[address] 21 Jun, 2014 [facility] [place] [facility] [address] [id number] [place] [address] 9791 20 Jun, 2014 [facility] [place] [facility] [address] [id number] [place] [address] 5527 20 Jun, 2014 [facility] [place] [facility] [address] [id number] [place] [address]- 2786 20 Jun, 2014 [facility] [place] [facility] [address] [id number] [place] [address]- 5796 20 Jun, 2014 [facility] [place] [facility] [address] [id number] [place] [address]- 7971 19 Jun, 2014 [facility] [place] [facility] [address] [id number] [place] [address]- 7250 19 Jun, 2014 [facility] [place] [facility] [address] [id number] [place] [address]- 2341 18 Jun, 2014 [facility] [place] [facility] [address] [id number] [place] [address]- 5742 18 Jun, 2014 [facility] [place] [facility] [address] [id number] [place] [address]- 5164 17 Jun, 2014 [facility] [place] [facility] [address] [id number] [place] [address]- 1195 17 Jun, 2014 [facility] [place] [facility] [address] [id number] [place] [address]- 2726 16 Jun, 2014 [facility] [place] [facility] [address] [id number] [place] [address]- 8642 16 Jun, 2014 [facility] [place] [facility] [address] [id number] [place] [address]- 7866 16 Jun, 2014 [facility] [place] [facility] [address] [id number] [place] [address]- 3734 16 Jun, 2014 [facility] [place] [facility] [address] [id number] [place] [address]- 3976 16 Jun, 2014 [facility] [place] [facility] [address] [id number] [place] [address]- 5962 16 Jun, 2014 [facility] [place] [facility] [address] [id number] [place] [address]- 8249 13 Jun, 2014 [facility] [place] [facility] [address] [id number] [place] [address]- 2878 13 Jun, 2014 [facility] [place] [facility] [address] [id number] [place] [address]- 1456 Jun, [facility] [place] [facility] [address] [id number] [place] [address]- 1568 Jun, 2014 [facility] [place] [facility] [address] [id number] [place] [address]- 5629 Jun, 2014 [facility] [place] [facility] [address] [id number] [place] [address]- 8086 Jun, 2014 [facility] [place] [facility] [address] [id number] [place] [address]- 2527 Jun, 2014 [facility] [place] [facility] [address] [id number] [place] [address]- 7077 Jun, 2014 [facility] [place] [facility] [address] [id number] [place] [address]- 2546 Jun, 2014 [facility] [place] [facility] [address] [id number] [place] [address]- 2259 Jun, [facility] [place] [facility] [address] [id number] [place] [address]- 4016 Jun, [facility] [place] [facility] [address] [id number] [place] [address]- 7218 Jun, [facility] [place] [facility] [address] [id number] [place] [address]- 4162 Jun, [facility] [place] [facility] [address] [id number] [place] [address]- 6833 Jun, [facility] [place] [facility] [address] [id number] [place] [address]- 1218 Jun, [facility] [place] [facility] [address] [id number] [place] [address]- 5509 Jun, [facility] [place] [facility] [address] [facility] [id number] [place] [address]- 0289 Jun, [facility] [place] [facility] [address] [id number] [place] [address]- 9859 Jun, [facility] [place] [facility] [address] [id number] [place] [address]- 2384 Jun, [facility] [place] [facility] [address] [facility] [id number] [place] [address]- 4268 Jun, [facility] [place] [facility] [address] [id number] [place] [address]- 1191 May, 2014 [facility] [place] [facility] [address] [id number] [address]- 3166 May, 2014 [facility] [place] [facility] [address] [id number] [place] [address]- 8006 May, [facility] [place] [facility] [address] [id number] [place] [address]- 5968 May, [facility] [place] [facility] [address] [facility] [id number] [place] [address]- 6033 May, [facility] [place] [facility] [address] [id number] [place] [address] 2542 24 May, 2014 [facility] [place] [facility] [address] [id number] [place] [address]- 0366 May, 2014 [facility] [place] [facility] [address] [id number] [place] [address] 2546 20 May, 2014 [facility] [place] [facility] [address] [facility] [id number] [place] [address] 2546 20 May, 2014 [facility] [place] [facility] [address] [id number] [place] [address]- 2542 20 May, 2014 [facility] [place] [facility] [address] [facility] [id number] [place] [address] 2546 18 May, 2014 [facility] [place] [facility] [address] [facility] [id number] [place] [address]- 1483 18 May, 2014 [facility] [place] [facility] [address] [facility] [id number] [place] [address]- 2549 13 May, 2014 [facility] [place] [facility] [address] [facility] [id number] [place] [address]- 7483 13 May, 2014 [facility] [place] [facility] [address] [facility] [id number] [place] [address]- 7085 11 May, 2014 [facility] [place] [facility] [address] [facility] [id number] [place] [address]- 2546 11 May, 2014 [facility] [place] [facility] [address] [facility] [id number], [place] [address]- 2545 May, 2014 [facility] [place] [facility] [address] [facility] [id number] [place] [address]- 2546 May, 2014 [facility] [place] [facility] [address] [facility] [id number] [place] [address]- 2546 09 May, 2014 [facility] [place] [facility] [address] [facility] [id number] [place] [address]- 2546 09 May, 2014 [facility] [place] [facility] [address] [facility] [id number] [place] [address]- 0861 May, 2014 [facility] [place] [facility] [address] [id number] [place] [address]- 4376 May, 2014 [facility] [place] [facility] [address] [id number] [place] [address]- 8066 May, 2014 [facility] [place] [facility] [address] [id number] [place] [address]- 8766 May, 2014 [facility] [place] [facility] [address] [id number] [place] [address]- 4817 May, 2014 [facility] [place] [facility] [address] [id number] [place] [address]- 1988 May, 2014 [facility] [place] [facility] [address] [id number] [place] [address]- 7018 May, 2014 [facility] [place] [facility] [address] [id number] [place] [address]- 6741 Apr, [facility] [place] [facility] [address] [id number] [place] [address]- 8869 Apr, [facility] [place] [facility] [address] [id number] [place] [address]- 7108 Apr, [facility] [place] [facility] [address] [id number] [place] [address]- 5359 Apr, [facility] [place] [facility] [address] [id number] [place] [address]- 5391 Apr, [facility] [place] [facility] [address] [id number] [place] [address]- 6784 Apr, [facility] [place] [facility] [address] [id number] [place] [address]- 9297 Apr, [facility] [place] [facility] [address] [id number] [place] [address]- 7452 Apr, [facility] [place] [facility] [address] [id number] [place] [address]- 3235 Apr, [facility] [place] [facility] [address] [id number] [place] [address]- 7034 Apr, [facility] [place] [facility] [address] [id number] [place] [address]- 2275 Apr, [facility] [place] [facility] [address] [id number] [place] [address]- 9447 Apr, [facility] [place] [facility] [address] [id number] [place] [address]- 5729 Apr, [facility] [place] [facility] [address] [id number] [place] [address]- 1746 Apr, [facility] [place] [facility] [address] [id number] [place] [address]- 3014 Apr, [facility] [place] [facility] [address] [id number] [place] [address]- 7295 Apr, [facility] [place] [facility] [address] [id number] [place] [address]- 7334 Apr, [facility] [place] [facility] [address] [id number] [place] [address]- 3072 Apr, [facility] [place] [facility] [address] [id number] [place] [address]- 8979 Apr, [facility] [place] [facility] [address] [id number] [place] [address]- 8711 Apr, [facility] [place] [facility] [address] [id number], [place] [address]- 0672 Mar, [facility] [place] [facility] [address] [id number] [place] [address]- 9543 Mar, [facility] [place] [facility] [address] [id number] [place] [address]- 6942 Mar, [facility] [place] [facility] [address] [id number] [place] [address]- 6733 Mar, [facility] [place] [facility] [address] [id number] [place] [address]- 5999 23 Mar, 2014 [facility] [place] [facility] [address] [id number] [place] [address]- 9796 23 Mar, 2014 [facility] [place] [facility] [address] [id number] [place] [address]- 0126 18 Mar, 2014 [facility] [place] [facility] [address] [id number] [place] [address]- 0566 18 Mar, 2014 [facility] [place] [facility] [address] [id number] [place] [address]- 7880 15 Mar, 2014 [facility] [place] [facility] [address] [id number] [place] [address]- 9708 15 Mar, 2014 [facility] [place] [facility] [address] [id number] [place] [address]- 5686 15 Mar, 2014 [facility] [place] [facility] [address] [id number] [place] [address]- 6301 15 Mar, 2014 [facility] [place] [facility] [address] [id number] [place] [address]- 4754 Mar, [facility] [place] [facility] [address] [id number] [place] [address]- 6219 Mar, [facility] [place] [facility] [address] [id number] [place] [address]- 0870 Mar, [facility] [place] [facility] [address] [id number] [place] [address]- 9911 Mar, [facility] [place] [facility] [address] [id number] [place] [address]- 9744 Feb, [facility] [place] [facility] [address] [id number] [place] [address]- 8235 Feb, [facility] [place] [facility] [address] [id number] [place] [address]- 6425 Feb, [facility] [place] [facility] [address] [id number] [place] [address]- 1553 Feb, [facility] [place] [facility] [address] [id number] [place] [address]- 4584 20 Feb, 2014 [facility] [place] [facility] [address] [id number] [place] [address]- 1256 19 Feb, 2014 [facility] [place] [facility] [address] [id number] [place] [address]- 9820 19 Feb, 2014 [facility] [place] [facility] [address] [id number] [place] [address]- 2118 18 Feb, 2014 [facility] [place] [facility] [address] [id number] [place] [address]- 1396 18 Feb, 2014 [facility] [place] [facility] [address] [id number] [place] [address]- 5442 17 Feb, 2014 [facility] [place] [facility] [address] [id number] [place] [address]- 3316 17 Feb, 2014 [facility] [place] [facility] [address] [id number] [place] [address]- 0786 17 Feb, 2014 [facility] [place] [facility] [address] [id number] [place] [address]- 3997 17 Feb, 2014 [facility] [place] [facility] [address] [id number] [place] [address]- 3220 14 Feb, 2014 [facility] [place] [facility] [address] [id number] [place] [address]- 7586 14 Feb, 2014 [facility] [place] [facility] [address] [id number] [place] [address]- 4980 14 Feb, 2014 [facility] [place] [facility] [address] [id number] [place] [address]- 9261 14 Feb, 2014 [facility] [place] [facility] [address] [id number] [place] [address]- 6159 10 Feb, 2014 [facility] [place] [facility] [address] [id number] [place] [address]- 7774 10 Feb, 2014 [facility] [place] [facility] [address] [id number] [place] [address]- 7796 Feb, [facility] [place] [facility] [address] [id number] [place] [address]- 2752 Feb, [facility] [place] [facility] [address] [id number] [place] [address]- 9756 Jan, [facility] [place] [facility] [address] [id number] [place] [address]- 1392 Jan, [facility] [place] [facility] [address] [id number] [place] [address]- 7697 Jan, [facility] [place] [facility] [address] [id number] [place] [address]- 9518 Jan, [facility] [place] [facility] [address] [id number] [place] Jan, [facility] [place] [facility] [address] [id number] [place] [address]- 8345 Jan, [facility] [place] [facility] [address] [id number], [place] [address]- 4709 Jan, [facility] [place] [facility] [address] [id number] [place] [address]- 6473 Jan, [facility] [place] [facility] [address] [id number], [place] [address]- 0373 Jan, [facility] [place] [facility] [address] [id number], [place] [address]- 5166 Jan, [facility] [place] [facility] [address] [id number], [place] [address]- 0045 Jan, [facility] [place] [facility] [address] [id number] [place] [address]- 2114 Jan, [facility] [place] [facility] [address] [id number], [place] [address]- 7267 Jan, [facility] [place] [facility] [address] [id number], [place] [address]- 4402 Jan, [facility] [place] [facility] [address] [id number] [place] [address]- 0746 15 Jan, 2014 [facility] [place] [facility] [address] [id number] [place] [address]- 0126 15 Jan, 2014 [facility] [place] [facility] [address] [id number] [place] [address]- 6030 14 Jan, 2014 [facility] [place] [facility] [address] [id number] [place] [address]- 4136 14 Jan, 2014 [facility] [place] [facility] [address] [id number] [place] [address]- 6723 13 Jan, 2014 [facility] [place] [facility] [address] [id number] [place] [address]- 8151 13 Jan, 2014 [facility] [place] [facility] [address] [id number] [place] [address]- 5348 13 Jan, 2014 [facility] [place] [facility] [address] [id number] [place] [address]- 4090 13 Jan, 2014 [facility] [place] [facility] [address] [id number] [place] [address]- 2264 10 Jan, 2014 [facility] [place] [facility] [address] [id number] [place] [address]- 1328 02 Jan, 2014 [facility] [place] [facility] [address] [id number] [place] [address]- 3761 02 Jan, 2014 [facility] [place] [facility] [address] [id number] [place] [address]- 0412 25 Dec, 2013 [facility] [place] [facility] [address] [id number] [place] [address]- 1700 25 Dec, 2013 [facility] [place] [facility] [address] [id number] [place] [address]- 8348 23 Dec, 2013 [facility] [place] [facility] [address] [id number] [place] [address]- 8852 23 Dec, 2013 [facility] [place] [facility] [address] [id number] [place] [address]- 3042 19 Dec, 2013 [facility] [place] [facility] [address] [id number] [place] [address]- 9991 19 Sep, 2013 [facility] [place] [facility] [address] [id number] [place] [address]- 2556 17 Dec, 2013 [facility] [place] [facility] [address] [id number] [place] [address]- 6772 17 Sep, 2013 [facility] [place] [facility] [address] [id number] [place] [address]- 2449 09 Sep, 2013 [facility] [place] [facility] [address] [id number] [place] [address]- 4370 09 Sep, 2013 [facility] [place] [facility] [address] [id number] [place] [address]- 3710 08 Sep, 2013 [facility] [place] [facility] [address] [id number] [place] [address]- 1010 08 Sep, 2013 [facility] [place] [facility] [address] [id number] [place] [address]- 4998 Sep, 2013 [facility] [place] [facility] [address] [id number] [place] [address]- 6182 04 Dec, 2013 [facility] [place] [facility] [address] [id number] [place] [address]- 6677 Dec, 2013 [facility] [place] [facility] [address] [id number] [place] [address]- 8523 Dec, 2013 [facility] [place] [facility] [address] [id number] [place] [address]- 9879 Sep, 2013 [facility] [place] [facility] [address] [id number] [place] [address]- 2547 Dec, 2013 [facility] [place] [facility] [address] [id number] [place] [address]- 9775 Nov, [facility] [place] [facility] [address] [id number] [place] [address]- 3108 Nov, [facility] [place] [facility] [address] [id number] [place] [address]- 0234 Nov, [facility] [place] [facility] [address] [id number] [place] [address]- 0694 Nov, [facility] [place] [facility] [address] [id number] [place] [address]- 9614 Nov, [facility] [place] [facility] [address] [id number] [place] [address]- 4270 Nov, [facility] [place] [facility] [address] [id number] [place] [address]- 1677 Nov, [facility] [place] [facility] [address] [id number] [place] [address]- 9239 Nov, [facility] [place] [facility] [address] [id number] [place] [address]- 0526 Nov, [facility] [place] [facility] [address] [id number] [place] [address]- 5116 Nov, [facility] [place] [facility] [address] [id number] [place] [address]- 8206 Nov, [facility] [place] [facility] [address] [id number] [place] [address]- 6969 Nov, [facility] [place] [facility] [address] [id number] [place] [address]- 6896 Oct, [facility] [place] [facility] [address] [id number] [place] [address]- 7629 Oct, [facility] [place] [facility] [address] [id number] [place] [address]- 1868 Oct, [facility] [place] [facility] [address] [id number] [place] [address]- 9852 Oct, [facility] [place] [facility] [address] [id number] [place] [address]- 7966 Oct, [facility] [place] [facility] [address] [id number] [place] [address]- 3411 Oct, [facility] [place] [facility] [address] [id number] [place] [address]- 6603 23 Oct, 2013 [facility] [place] [facility] [address] [id number] [place] [address]- 4068 23 Oct, 2013 [facility] [place] [facility] [address] [id number] [place] [address]- 3459 Oct, [facility] [place] [facility] [address] [id number] [place] [address]- 8245 Oct, [facility] [place] [facility] [address] [id number] [place] [address]- 5750 16 Oct, 2013 [facility] [place] [facility] [address] [id number] [place] [address]- 8495 16 Oct, 2013 [facility] [place] [facility] [address] [id number] [place] [address]- 8339 14 Oct, 2013 [facility] [place] [facility] [address] [id number] [place] [address]- 0721 14 Oct, 2013 [facility] [place] [facility] [address] [id number] [place] [address] Oct, [facility] [place] [facility] [address] [id number] [place] [address] Oct, [facility] [place] [facility] [address] [id number] [place] [address] Oct, [facility] [place] [facility] [address] [id number] [place] [address] Sep, [facility] [place] [facility] [address] [id number] [place] [address] Sep, [facility] [place] [facility] [address] [id number] [place] [address] Sep, [facility] [place] [facility] [address] [id number] [place] [address] Sep, [facility] [place] [facility] [address] [id number] [place] [address] Sep, [facility] [place] [facility] [address] [id number] [place] [address] 18 Sep, 2013 [facility] [place] [facility] [address] [id number] [place] [address] Sep, [facility] [place] [facility] [address] [id number] [place] [address]- 2584 Sep, [facility] [place] [facility] [address] [id number] [place] [address]- 24[address] Sep, [facility] [place] [facility] [address] [id number] [place] [address] 8104 Sep, [facility] [place] [facility] [address] [id number] [place] [address]- 17[address] Sep, [facility] [place] [facility] [address] [id number] [place] [address]- 7697 Sep, [facility] [place] [facility] [address] [id number] [place] [address]- [address] Sep, [facility] [place] [facility] [address] [id number] [place] [address]- 94[address] Sep, [facility] [place] [facility] [address] [id number] [place] [address]- [address] Sep, [facility] [place] [facility] [address] [id number] [place] [address]- [address] Sep, [facility] [place] [facility] [address] [id number] [place] [address]- [address] Sep, [facility] [place] [facility] [address] [id number] [place] [address]- [address] Sep, [facility] [place] [facility] [address] [id number] [place] [address]- [address]61 Sep, [facility] [place] [facility] [address] [id number] [place] [address]- [address] 05 Sep, 2013 [facility] [place] [facility] [address] [id number] [place] [address]- 7966 Sep, [facility] [address] [id number] [place] [address]- 2418 Sep, [facility] [place] [facility] [address] [id number] [place] [address]- 6269 August, [facility] [address] [id number] [place] [address] 8488 August, [facility] [place] [facility] [address] [id number] [place] [address] 46[address] August, [facility] [place] [facility] [address] [id number] [place] [address] August, [facility] [place] [facility] [address] [id number] [place] [address] August, [facility] [address] [id number] [place] [address]- 9528 August, [facility] [place] [facility] [address] [id number] [place] [address] August, [facility] [place] [facility] [address] [id number] [place] [address]- 7656 August, [facility] [place] [facility] [address] [id number] [place] [address]30 August, [facility] [place] [facility] [address] [id number] [place] [address] 9765 August, [facility] [place] [facility] [address] [id number] [place] [address] 4710 August, [facility] [place] [facility] [address] [id number] [place] [address]- [address] Jul, [facility] [place] [facility] [address] [id number] [place] [address]- 224[address] Jul, [facility] [place] [facility] [address] [id number] [place] [address]- 120[address] Jul, [facility] [place] [facility] [address] [id number] [place] [address]- [address] 25 Jul, 2013 [facility] [place] [facility] [address] [id number] [place] [address]- [address] 23 Jul, 2013 [facility] [place] [facility] [address] [id number] [place] [address]- [address] 23 Jul, 2013 [facility] [place] [facility] [address] [id number] [place] [address]- [address] Jul, [facility] [place] [facility] [address] [id number] [place] [address]- 72[address] Jul, [facility] [place] [facility] [address] [id number] [place] [address]- 1258 18 Jul, 2013 [facility] [place] [facility] [address] [id number] [place] [address]- 0096 18 Jul, 2013 [facility] [place] [facility] [address] [id number] [place] [address]- 1995 16 Jul, 2013 [facility] [place] [facility] [address] [id number] [place] [address]- 4004 14 Jul, 2013 [facility] [place] [facility] [address] [id number] [place] [address]- 5610 14 Jul, 2013 [facility] [place] [facility] [address] [id number] [place] [address]- [address]115 11 Jul, 2013 [facility] [place] [facility] [address] [id number] [place] [address]- 0986 11 Jul, 2013 [facility] [place] [facility] [address] [id number] [place] [address]- 0906 10 Jul, 2013 [facility] [place] [facility] [address] [id number] [place] [address]- 9233 10 Jul, 2013 [facility] [place] [facility] [address] [id number] [place] [address]- 2344 05 Jul, 2013 [facility] [place] [facility] [address] [id number] [place] [address]- [address] Jul, [facility] [place] [facility] [address] [id number] [place] [address]- 4087 Jul, [facility] [place] [facility] [address] [id number] [place] [address]- 46[address] Jul, [facility] [place] [facility] [address] [id number] [place] [address]- 3506 Jul, [facility] [place] [facility] [address] [id number] [place] [address]- 8885 Jul, [facility] [place] [facility] [address] [id number] [place] [address]- 1401 Jun, [facility] [place] [facility] [address] [id number] [place] [address]- 69[address] Jun, [facility] [place] [facility] [address] [id number] [place] [address]- 9068 Jun, [facility] [place] [facility] [address] [id number] [place] [address]- 3960 Jun, [facility] [place] [facility] [address] [id number] [place] [address]- 7448 Jun, [facility] [place] [facility] [address] [id number] [place] [address]- 5698 Jun, [facility] [place] [facility] [address] [id number] [place] [address]- 8377 Jun, [facility] [place] [facility] [address] [id number] [place] [address]- 9626 Jun, [facility] [place] [facility] [address] [id number] [place] [address]- 8658 Jun, [facility] [place] [facility] [address] [id number] [place] [address]- 7633 Jun, [facility] [place] [facility] [address] [id number] [place] [address]- 8695 Jun, [facility] [place] [facility] [address] [id number] [place] [address]- 2664 Jun, [facility] [address] [id number] [place] [address] May, [facility] [place] [facility] [address] [id number] [place] [address] 8787 May, [facility] [address] [id number] [place] [address] Apr, [facility] [place] [facility] [address] [id number] [place] [address] 8981 Apr, [facility] [address] [id number] [place] [address]286 Apr, [facility] [address] [id number] [place] [address] 5681 Apr, [facility] [address] [id number] [place] [address] 5578 Apr, [facility] [address] [id number] [place] [address] 0955 Apr, [facility] [address] [id number] [place] [address] 4990 Apr, [facility] [address] [id number] [place] [address] 82[address] Apr, [facility] [place] [place] [facility] [address] [id number] [place] [address] 5367 Apr, [facility] [address] [id number] [place] [address] 8901 Apr, [facility] [place] [facility] [address] [id number] [place] [address] 8169 Apr, [facility] [place] [facility] [address] [id number] [place] [address] 1244 Mar, [facility] [place] [facility] [address] [id number] [place] [address] 1398 Mar, [facility] [address] [id number] [place] [address]- 2581 Mar, [facility] [place] [facility] [address] [id number] [place] [address]- 0706 Mar, [facility] [place] [facility] [address] [id number] [place] [address]- 6672 Feb, [facility] [place] [facility] [address] [id number] [place] [address]- 4304 Feb, [facility] [place] [facility] [address] [id number] [place] [address] 8799 Feb, [facility] [place] [facility] [address] [id number] [place] [address]- 5308 Feb, [facility] [place] [facility] [address] [facility] [id number] [place] [address]- 2348 Feb, [facility] [place] [facility] [address] [id number], [place] [address] 4[address] Feb, [facility] [place] [facility] [address] [id number], [place] [address] 4149 Feb, [facility] [place] [facility] [address] [facility] [id number], [place] [address]- [address] Feb, [facility] [place] [facility] [address] [facility] [id number], [place] [address] 3938 Feb, [facility] [place] [facility] [address] [id number], [place] [address]- 6[address] Feb, [facility] [place] [facility] [address] [id number], [place] [address] 3[address] Feb, [facility] [place] [facility] [address] [id number] [address] Jan, [facility] [place] [facility] [address] [id number], [place] [address]- 5599 Jan, [facility] [place] [facility] [address] [id number], [place] [address]- 5834 11 Jan, 2013 [facility] [place] [facility] [address] [id number] [place] [address]- 7622 11 Jan, 2012 [facility] [place] [facility] [address] [id number] [place] [address]- 7038 10 Jan, 2013 [facility] [place] [facility] [address] [id number] [place] [address]- 8369 10 Jan, 2013 [facility] [place] [facility] [address] [id number] [place] [address]- 5280 03 Jan, 2013 [facility] [place] [facility] [address] [id number] [place] [address]- 9250 02 Jan, 2013 [facility] [place] [facility] [address] [id number] [place] [address]- 5829 30 Sep, 2012 [facility] [place] [facility] [address] [id number] [place] [address]- 8317 25 Sep, 2012 [facility] [place] [facility] [address] [id number] [place] [address]- 0226 18 Sep, 2012 [facility] [place] [facility] [address] [id number] [place] [address]- 9591 17 Sep, 2012 [facility] [place] [facility] [address] [facility] [id number] [place] [address]- 9569 17 Sep, 2012 [facility] [place] [facility] [address] [id number], [place] [address]- 2549 16 Sep, 2012 [facility] [place] [facility] [address] [id number], [place] [address]- 2548 13 Sep, 2012 [facility] [place] [facility] [address] [id number] [place] [address]- 9345 11 Sep, 2012 [facility] [place] [facility] [address] [facility] [id number] [place] [address]- 2542 05 Sep, 2012 [facility] [place] [facility] [address] [facility] [id number], [place] [address]- 4386 04 Sep, 2012 [facility] [place] [facility] [address] [id number] [place] [address]- 6487 30 Nov, 2012 [facility] [place] [facility] [address] [id number] [place] [address]- 9656 Nov, [facility] [place] [facility] [address] [id number] [place] [address]- 1336 Nov, [facility] [place] [facility] [address] [id number] [place] [address]- 0782 Nov, [facility] [place] [facility] [address] [id number] [place] [address]- 8614 Nov, [facility] [place] [facility] [address] [id number] [place] [address]- 9324 Nov, [facility] [place] [facility] [address] [id number] [place] [address]- 1468 Nov, [facility] [place] [facility] [address] [id number] [place] [address]- 0733 Oct, [facility] [place] [facility] [address] [id number] [place] [address]- 1744 Oct, [facility] [place] [facility] [address] [id number] [place] [address]- 0042 Oct, [facility] [place] [facility] [address] [id number] [place] [address]- 2628 Oct, [facility] [place] [facility] [address] [id number] [place] [address]- 0316 15 Oct, 2012 [facility] [place] [facility] [address] [id number] [place] [address]- 5965 Oct, [facility] [place] [facility] [address] [id number] [place] [address]- 4238 Sep, [facility] [place] [facility] [address] [id number] [place] [address]- 3455 Sep, [facility] [place] [facility] [address] [id number] [place] [address]- 7381 27 Sep, 2012 [facility] [address] [id number] [place] [address]- 3253 14 Sep, 2012 [facility] [place] [facility] [address] [id number] [place] [address]- 5298 13 Sep, 2012 [facility] [place] [facility] [address] [id number] [place] [address]- 8613 10 Sep, 2012 [facility] [place] [facility] [address] [id number] [place] [address]- 6526 07 Sep, 2012 [facility] [place] [facility] [address] [id number] [place] [address]- 2454 06 Sep, 2012 [facility] [place] [facility] [address] [id number] [place] [address]- 1869 05 Sep, 2012 [facility] [place] [facility] [address] [id number] [place] [address]- 4711 August, [facility] [place] [facility] [address] [id number] [place] [address]- 2266 August, [facility] [place] [facility] [address] [id number] [place] [address]- 2854 August, [facility] [place] [facility] [address] [id number] [place] [address]- 9603 August, [facility] [place] [facility] [address] [id number] [place] [address]- 9520 August, [facility] [place] [facility] [address] [id number], [place] [address]- 4302 August, [facility] [place] [facility] [address] [id number] [place] [address]- 9577 August, [facility] [place] [facility] [address] [id number] [place] [address]- 4390 August, [facility] [place] [facility] [address] [id number] [place] [address]- 1344 Jul, [facility] [place] [facility] [address] [id number] [place] [address]- 8025 Jul, [facility] [address] [place] [id number] Jul [facility] [address] [id number] [place] [address]- 3016 Jun, [facility] [address] [id number] [place] [address]- 4422 Jun, [facility] [address] [id number] [place] [address]- 3035 Jun, [facility] [address] [id number] [place] [address]- 4283 Jun, [facility] [address] [id number] [place] [address]- 1244 Jun, [facility] [address] [id number] [place] [address]- 0890 Jun, [facility] [address] [id number] [place] [address]- 8700 May, [facility] [address] [id number] [place] [address]- 7310 May, [facility] [address] [id number] [place] [address]- 2718 May, [facility] [address] [id number] [place] [address]- 0458 May, [facility] [address] [id number] [place] [address] 2540 May, [facility] [address] [id number] [place] [address]- 4585 Apr, [facility] [address] [id number] [place] [address]- 4617 Apr, [facility] [address] [id number] [place] [address]- 5078 Apr, [facility] [place] [facility] [address] [id number] [place] [address]- 4236 Apr, [facility] [place] [facility] [address] [id number] [place] [address]- 9596 Apr, [facility] [place] [facility] [address] [id number] [place] [address]- 8346 Apr, [facility] [place] [facility] [address] [id number] [place] [address]- 1726 Mar, [facility] [place] [facility] [address] [id number] [place] [address]- 5790 Mar, [facility] [place] [facility] [address] [id number] [place] [address]- 3352 Mar, [facility] [place] [facility] [address] [id number] [place] [address]- 0149 Mar, [facility] [place] [facility] [address] [id number] [place] [address]- 0316 Mar, [facility] [place] [facility] [address] [id number] [place] [address]- 7039 Mar, [facility] [place] [facility] [address] [id number] [place] [address]- 4744 Mar, [facility] [place] [facility] [address] [id number] [place] [address]- 4915 Mar, [facility] [place] [facility] [address] [id number] [place] [address]- 6806 Mar, [facility] [place] [facility] [address] [id number] [place] [address]- 4990 05 Mar, 2012 [facility] [place] [facility] [address] [id number] [place] [address]- 7426 05 Mar, 2012 [facility] [place] [facility] [address] [id number] [place] [address]- 1986 Feb, [facility] [place] [facility] [address] [id number] [place] [address]- 2949 Feb, [facility] [place] [facility] [address] [id number] [place] [address]- 3754 Feb, [facility] [place] [facility] [address] [id number] [place] [address]- 8290 Feb, [facility] [place] [facility] [address] [facility] [id number] [place] [address]- 8685 Feb, [facility] [place] [facility] [address] [id number] [place] [address]- 5987 Feb, [facility] [place] [facility] [address] [id number] [place] [address]- 0702 Feb, [facility] [place] [facility] [address] [id number] [place] [address]- 1437 Feb, [facility] [place] [facility] [address] [facility] [id number] [place] [address]- 1105 Feb, [facility] [place] [facility] [address] [id number], [place] [address]- 2547 Feb, [facility] [place] [facility] [address] [id number] [place] [address]- 9038 Feb, [facility] [place] [facility] [address] [facility] [id number], [place] [address]- 1876 Jan, [facility] [place] [facility] [address] [id number], [place] [address]- 9230 Jan, [facility] [place] [facility] [address] [id number], [place] [address]- 6731 Jan, [facility] [place] [facility] [address] [id number], [place] [address]- 7821 Jan, [facility] [place] [facility] [address] [id number], [place] [address]- 1905 Jan, [facility] [place] [facility] [address] [facility] [id number], [place] [address]- 1333 Jan, [facility] [place] [facility] [address] [id number] [place] [address]- 6175 09 Jan, 2012 [facility] [place] [facility] [address] [id number] [place] [address]- 7873 24 Dec, 2011 [facility] [place] [facility] [address] [id number] [place] [address]- 7256 17 Dec, 2011 [facility] [place] [facility] [address] [id number] [place] [address]- 9296 13 Dec, 2011 [facility] [place] [facility] [address] [id number] [place] [address]- 5847 12 Dec, 2011 [facility] [place] [facility] [address] [id number] [place] [address]- 9980 23 Nov, 2011 [facility] [place] [facility] [address] [id number] [place] [address]- 5709 20 Nov, 2011 [facility] [place] [facility] [address] [id number] [place] [address]- 8624 17 Nov, 2011 [facility] [place] [facility] [address] [id number] [place] [address]- 2502 15 Nov, 2011 [facility] [place] [facility] [address] [id number] [place] [address]- 9421 14 Nov, 2011 [facility] [place] [facility] [address] [id number] [place] [address]- 1794 13 Nov, 2011 [facility] [place] [facility] [address] [id number] [place] [address]- 0737 Nov, [facility] [place] [facility] [address] [id number] [place] [address]- 5659 Nov, [facility] [place] [facility] [address] [id number] [place] [address]- 4084 Nov, [facility] [place] [facility] [address] [id number] [place] [address]- 8694 Nov, [facility] [place] [facility] [address] [id number] [place] [address]- 9735 Nov, [facility] [place] [facility] [address] [id number] [place] [address]- 6184 Nov, [facility] [place] [facility] [address] [id number] [place] [address]- 0879 Nov, [facility] [place] [facility] [address] [id number] [place] [address]- 5619 Oct, [facility] [place] [facility] [address] [id number] [place] [address]- 4422 Oct, [facility] [place] [facility] [address] [id number] [place] [address]- 2707 Oct, [facility] [place] [facility] [address] [id number] [place] [address]- 7277 Oct, [facility] [place] [facility] [address] [id number] [place] [address]- 1324 Oct, [facility] [place] [facility] [address] [id number] [place] [address]- 5327 Oct, [facility] [place] [facility] [address] [id number] [place] [address]- 1041 Oct, [facility] [place] [facility] [address] [id number] [place] [address]- 2989 Oct, [facility] [place] [facility] [address] [id number] [place] [address]- 8408 Oct, [facility] [place] [facility] [address] [id number] [place] [address]- 0542 Sep, [facility] [place] [facility] [address] [id number] [place] [address]- 4132 Sep, [facility] [place] [facility] [address] [id number] [place] [address]- 0176 Sep, [facility] [place] [facility] [address] [id number] [place] [address]- 9128 Sep, [facility] [place] [facility] [address] [id number] [place] [address]- 8021 Sep, [facility] [place] [facility] [address] [id number] [place] [address]- 8649 Sep, [facility] [place] [facility] [address] [id number] [place] 3796 Sep, [facility] [place] [facility] [address] [id number] [place] [address]- 7295 Sep, [facility] [place] [facility] [address] [id number] [place] [address]- 7384 August, [facility] [place] [facility] [address] [id number] [place] [address]- 8603 August, [facility] [place] [facility] [address] [id number] [place] [address]- 9918 August, [facility] [place] [facility] [address] [id number] [place] [address]- 8849 August, [facility] [place] [facility] [address] [id number] [place] [address]- 5003 August, [facility] [place] [facility] [address] [id number] [place] [address]- 0623 August, [facility] [place] [facility] [address] [id number] [place] [address]- 8080 August, [facility] [place] [facility] [address] [id number] [place] [address]- 0158 August, [facility] [place] [facility] [address] [id number] [place] [address]- 8609 August, [facility] [place] [facility] [address] [id number] [place] [address]- 2464 August, [facility] [place] [facility] [address] [id number] [place] [address]- 2540 August, [facility] [place] [facility] [address] [id number] [place] [address]- 1567 August, [facility] [place] [facility] [address] [id number] [place] [id number] [address] Oct, IMMUNIZATIONS No Known Immunizations SOCIAL HISTORY Never Assessed REASON FOR VISIT Requests return call PLAN OF CARE VITAL SIGNS MEDICATIONS Medication Instructions Dosage Frequency Start Date End Date Duration Status Nexium 40 mg Orally Once a day 1 capsule 24h Jul, 30 day(s) Active RESULTS No Results PROCEDURES [...] Hospitalization History suicidal ideations-[place] 12/28 Hospitalization History hypoxia--[facility] 02/13/2016 Hospitalization History shortness of breath at june 2016 Hospitalization History Shortness of breath at august 2016 Hospitalization History SOB, chest pain at 12/2016
--- NOTE | 2017-11-24 18:25 | ED Psychosocial ---
General Chief Complaint: Psych/Social Disorder Stated Complaint: SUICIDAL Source: patient Exam Limitations: no limitations History of Present Illness Date Seen by Provider: Nov 24, 2017 Time Seen by Provider: 18:18 Initial Comments The patient presents to the ER by private conveyance with chief complaint of suicidal ideation. She had a plan to cut her wrists today and she made a faint superficial incision on her right wrist and then fainted at the site of her own blood she says. She did not exit pass out however she says she has had multiple attempts at suicide in the past including trying to jump out of a window and cutting her wrist. She says if she goes home right now so we'll just try to complete her suicide attempt tonight. She does want help. She's been at [facility] here and [place] as well as [facility]. She did not have a good experience because she was rejected a [facility] seemingly due to her weight she says. She still is willing to go however if they will take her. She wants to say some more close by so getting a ride home was not as hard. Allergies and Home Medications Allergies Coded Allergies: No Known Drug Allergies (Unverified , 08/08/16) Home Medications Albuterol Sulfate 8.5 Gm Hfa.aer.ad, 2 PUFF IH Q4H PRN for SHORTNESS OF BREATH, (Reported) Aspirin/Acetaminophen/Caffeine 1 Each Tablet, 2 TAB PO BID PRN for PAIN-MILD, ( Reported) Budesonide/Formoterol Fumarate 10.2 Gm Hfa.aer.ad, 2 PUFF IH BID, (Reported) Cetirizine HCl 10 Mg Tablet, 10 MG PO DAILY, (Reported) Folic Acid/Mv,Fe,Other Min 1 Each Tablet, 1 TAB PO DAILY, (Reported) Furosemide 40 Mg Tablet, 40 MG PO DAILY PRN for SWELLING, (Reported) Gemfibrozil 600 Mg Tablet, 600 MG PO BID, (Reported) Ibuprofen 600 Mg Tablet, 1,200 MG PO BID PRN for PAIN-MILD, (Reported) TAKES 2 (600MG) TABLETS Insulin Aspart 100 Unit/1 Ml Susp, 40 UNITS SQ AC, (Reported) Insulin Glargine,Hum.rec.anlog 100 Unit/1 Ml Vial, 52-53 UNITS SQ BID, (Reported ) Ipratropium [place] 0.2 Mg/1 Ml Solution, 2 VIAL IH TID PRN for SHORTNESS OF BREATH, (Reported) UESE TWO VIALS PER TREATMENT Metformin HCl 1,000 Mg Tablet, 1,000 MG PO BID WITH MEALS, (Reported) Metolazone 2.5 Mg Tablet, 2.5 MG PO DAILY Prescribed by: PITER ESPINOZA on 12/29/16 0853 Montelukast Sodium 10 Mg Tablet, 10 MG PO DAILY, (Reported) Omeprazole 40 Mg Capsule.dr, 40 MG PO DAILY, (Reported) Pravastatin Sodium 40 Mg Tablet, 40 MG PO HS, (Reported) Pregabalin 150 Mg Capsule, 300 MG PO HS, (Reported) TAKES 2 (150 MG) CAPSULES Pregabalin 150 Mg Capsule, 150 MG PO 0800,1800, (Reported) Ranitidine HCl 150 Mg Tablet, 300 MG PO HS, (Reported) TAKES 2 (150 MG) TABLETS Sucralfate 1 Gm Tablet, 2 GM PO BID, (Reported) TAKES 2 (1GM) TABLETS Patient Home Medication List Home Medication List Reviewed: Yes Constitutional: No chills, No diaphoresis EENTM: No ear pain, No double vision Respiratory: No cough, No short of breath Cardiovascular: No chest pain, No palpitations Gastrointestinal: No abdominal pain, No nausea, No vomiting Genitourinary: No discharge, No dysuria : No Past Vjvvxlf-Djadan-Adauud Hx Patient Social History Alcohol Use: Denies Use Recreational Drug Use: No Smoking Status: Current Everyday Smoker Type Used: Cigarettes Former Smoker, Quit: Feb 12, 1999 2nd Hand Smoke Exposure: No Recent Hopitalizations: No Immunizations Up To Date Tetanus Booster (TDap): Unknown PED Vaccines UTD: No Date of Pneumonia Vaccine: Jan 13, 2012 Date of Influenza Vaccine: Feb 26, 2012 Seasonal Allergies Seasonal Allergies: No Past Medical History Surgeries: Yes Adenoidectomy, Bladder Surgery, Tonsillectomy Respiratory: Yes Asthma, Sleep Apnea, COPD Currently Using CPAP: No (noncompliant) Currently Using BIPAP: Yes Cardiac: No Chronic Edema/Swelling, High Cholesterol, Hypertension Neurological: No Reproductive Disorders: No Female Reproductive Disorders: Denies Sexually Transmitted Disease: No HIV/AIDS: No Genitourinary: Yes (UTI) Gastrointestinal: No Gastroesophageal Reflux, Chronic Constipation Musculoskeletal: No Chronic Back Pain Endocrine: Yes Diabetes, Insulin dep HEENT: No Loss of Vision: Denies Hearing Impairment: Denies Cancer: No Psychosocial: No Anxiety, Depression Integumentary: Yes (Diabetic ulcers) Eczema Blood Disorders: No Adverse Reaction/Blood Tranf: No Family Medical History Cancer 19 FATHER, Onset:Unknown 19 MOTHER, Onset:Unknown Cancer of colon 19 FATHER, Onset:Unknown 19 MOTHER, Onset:Unknown Family history: Cardiovascular disease 19 FATHER, Onset:Unknown 19 MOTHER, Onset:Unknown Family history: Diabetes mellitus 19 FATHER, Onset:Unknown 19 MOTHER, Onset:Unknown Heart Disease, Seizures Physical Exam Vital Signs - First Documented 11/24/17 11/24/17 17:21 21:03 Temp 98.7 Pulse 104 Resp 20 B/P (MAP) 156/97 (116) Pulse Ox 98 O2 Delivery Room Air Capillary Refill : Height, Weight, BMI Height: 5'9.00" Weight: 258lbs. 0.0oz. [id number]; 79.9 BMI Method:Estimated General Appearance: WD/WN, no apparent distress HEENT: PERRL/EOMI, normal ENT inspection, TMs normal, pharynx normal Neck: non-tender, full range of motion Respiratory: chest non-tender, lungs clear, normal breath sounds, no respiratory distress, no accessory muscle use Cardiovascular: normal peripheral pulses, regular rate, rhythm Gastrointestinal: normal bowel sounds, non tender, soft Extremities: non-tender, normal inspection, no pedal edema, normal capillary refill Neurologic/Psychiatric: alert, oriented x 3, other (anxious) Appearance/Memory: appropriate insight, no memory impairment, disheveled Behavior/Eye Contact: cooperative, good eye contact, normal speech Thoughts/Hallucinations: normal thought pattern, no apparent hallucination Skin: normal color, warm/dry Progress/Results/Core Measures Results/Orders Lab Results Laboratory Tests Test 11/24/17 18:33 11/24/17 18:51 Range/Units Urine Color YELLOW Urine Clarity CLEAR Urine pH 7 5-9 Urine Specific [place] 1.010 L 1.016-1.022 Urine Protein 3+ H NEGATIVE Urine Glucose (UA) NEGATIVE NEGATIVE Urine Ketones NEGATIVE NEGATIVE Urine Nitrite NEGATIVE NEGATIVE Urine Bilirubin NEGATIVE NEGATIVE Urine Urobilinogen NORMAL NORMAL MG/DL Urine Leukocyte Esterase 2+ H NEGATIVE Urine RBC (Auto) NEGATIVE NEGATIVE Urine RBC NONE /HPF Urine WBC 2-5 /HPF Urine Squamous Epithelial Cells 2-5 /HPF Urine Crystals NONE /LPF Urine Bacteria FEW H /HPF Urine Casts NONE /LPF Urine Mucus NEGATIVE /LPF Urine Culture Indicated NO Urine Test NEGATIVE NEGATIVE Urine Opiates Screen NEGATIVE NEGATIVE Urine Oxycodone Screen NEGATIVE NEGATIVE Urine Methadone Screen NEGATIVE NEGATIVE Urine Propoxyphene Screen NEGATIVE NEGATIVE Urine Barbiturates Screen NEGATIVE NEGATIVE Ur Tricyclic Antidepressants Screen NEGATIVE NEGATIVE Urine Phencyclidine Screen NEGATIVE NEGATIVE Urine Amphetamines Screen NEGATIVE NEGATIVE Urine Methamphetamines Screen NEGATIVE NEGATIVE Urine Benzodiazepines Screen NEGATIVE NEGATIVE Urine Cocaine Screen NEGATIVE NEGATIVE Urine Cannabinoids Screen NEGATIVE NEGATIVE White Blood Count 9.1 4.3-11.0 10^3/uL Red Blood Count 3.95 L 4.35-5.85 10^6/uL Hemoglobin 11.1 L 11.5-16.0 G/DL Hematocrit 35 35-52 % Mean Corpuscular Volume 88 80-99 FL Mean Corpuscular Hemoglobin 28 25-34 PG Mean Corpuscular Hemoglobin Concent 32 32-36 G/DL Red Cell Distribution Width 15.9 H 10.0-14.5 % Platelet Count 279 130-400 10^3/uL Mean Platelet Volume 9.5 7.4-10.4 FL Neutrophils (%) (Auto) 60 42-75 % Lymphocytes (%) (Auto) 33 12-44 % Monocytes (%) (Auto) 6 0-12 % Eosinophils (%) (Auto) 2 0-10 % Basophils (%) (Auto) 0 0-10 % Neutrophils # (Auto) 5.4 1.8-7.8 X 10^3 Lymphocytes # (Auto) 2.9 1.0-4.0 X 10^3 Monocytes # (Auto) 0.5 0.0-1.0 X 10^3 Eosinophils # (Auto) 0.2 0.0-0.3 10^3/uL Basophils # (Auto) 0.0 0.0-0.1 10^3/uL Sodium Level 137 135-145 MMOL/L Potassium Level 3.8 3.6-5.0 MMOL/L Chloride Level 98 98-107 MMOL/L Carbon Dioxide Level 29 21-32 MMOL/L Anion Gap 10 5-14 MMOL/L Blood Urea Nitrogen 20 H 7-18 MG/DL Creatinine 0.78 0.60-1.30 MG/DL Estimat Glomerular Filtration Rate > 60 BUN/Creatinine Ratio 26 Glucose Level 174 H 70-105 MG/DL Calcium Level 9.2 8.5-10.1 MG/DL Corrected Calcium 9.5 8.5-10.1 MG/DL Total Bilirubin 0.2 0.1-1.0 MG/DL Aspartate Amino Transf (AST/SGOT) 15 5-34 U/L Alanine Aminotransferase (ALT/SGPT) 11 0-55 U/L Alkaline Phosphatase 102 40-136 U/L Total Protein 7.1 6.4-8.2 GM/DL Albumin 3.6 3.2-4.5 GM/DL Salicylates Level < 5.0 L 5.0-20.0 MG/DL Acetaminophen Level < 10 L 10-30 UG/ML Serum Alcohol < 10 <10 MG/DL My Orders Orders - MAZIN HOBBS Ua Culture If Indicated (11/24/17 18:20) Cbc With Automated Diff (11/24/17 18:20) Comprehensive Metabolic Panel (11/24/17 18:20) Alcohol (11/24/17 18:20) Drug Screen Stat (Urine) (11/24/17 18:20) Acetaminophen (11/24/17 18:20) Salicylate (11/24/17 18:20) Hcg,Qualitative Urine (11/24/17 18:20) Saline Lock/Iv-Start (11/24/17 18:20) Monitor-Rhythm Ecg Trace Only (11/24/17 18:20) Lorazepam Injection (Ativan Injection) (11/24/17 19:00) Lorazepam Tablet (Ativan Tablet) (11/24/17 20:00) Medications Given in ED Current Medications Medications Dose Ordered Sig/Carla Route Start Time Stop Time Status Last Admin Dose Admin Lorazepam 2 mg ONCE ONCE PO 11/24/17 20:00 11/24/17 20:01 DC 11/24/17 20:15 2 MG Vital Signs/I&O 11/24/17 11/24/17 17:21 21:03 Temp 98.7 Pulse 104 86 Resp 20 14 B/P (MAP) 156/97 (116) 156/77 Pulse Ox 98 O2 Delivery Room Air Room Air Progress Progress Note : Time: 20:30 Progress Note Discussed the case with [facility] patient does not meet inpatient criteria she's noticed before and she has no desire to go inpatient if she doesn't have to. She says she had a bad experience before she was left in the ER for a day and doesn't want to do that anymore. We talked [facility] and they spoke with her today and said that they will call her when she gets home and call her in the morning and help her get her appointments. She is well-known to them. I discussed this with the patient and she has accepted this plan. Departure Impression Primary Impression: Depression with suicidal ideation Disposition: 01 HOME, SELF-CARE Condition: Stable Departure-Patient Inst. Decision time for Depature: 20:38 Referrals: ZAINAB HESS MD (PCP/Family) Primary Care Physician Patient Instructions: SUICIDE CONTRACT Add. Discharge Instructions: Expect a phone call tonight from the saves line and again tomorrow. All discharge instructions reviewed with patient and/or family. Voiced understanding. Copy Copies To 1: MARLIN PATRICK TITUS J Nov 24, 2017 18:25
--- OUTSIDE RECORDS SUMMARY | 2017-11-24 18:26 | XMS REPORT ---
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 hyperpigmentation L81.0 [facility] [id number] [place] [address] 93480- 2279 Mar, Unspecified mood [affective] disorder F39 [facility] [address] [facility] [id number], [place] [address]- 5886 Mar, Unspecified mood [affective] disorder F39 [facility] [address] [facility] [id number], [place] [address]- 1427 Mar, [facility] [address] [facility] [id number], [place] [address]- 3435 Mar, [facility] [address] [facility] [id number], [place] [address]- 7786 Mar, [facility] [address] [facility] [id number], [place] [address]- 4068 Mar, [facility] [address] [facility] [id number], [place] [address]- 9113 Mar, [facility] [id number] [address]- 5292 Mar, [facility] [address] [facility] [id number], [place] [address]- 3010 Feb, Unspecified mood [affective] disorder F39 [facility] [address] [facility] [id number], [place] [address]- 9084 Feb, [facility] [id number], [place] [address]- 0706 Feb, [facility] [id number], [place] [address]- 1103 Jan, Unspecified mood [affective] disorder F39 [facility] [address] [id number] [id number] Jan, Encounter for dental examination Z01.20 [facility] [id number] [address]- 1461 Jan, [facility] [id number], [place] [address]- 8407 Jan, [facility] [id number] [place] [address] 24737- 6700 Jan, [facility] [id number] [place] [address] 87430- 7309 Jan, [facility] [id number] [place] [address] 30979- 0597 Jan, [facility] [address] 07776- 2047 Jan, Abdominal abscess K65.1 and Dental caries K02.9 [facility] [address] 28229- 8726 Jan, [facility] [address] 23578- 5215 30 Dec, 2014 Diabetes with neurological manifestations, type II or unspecified type, not stated as uncontrolled 250.60 ; Essential hypertension, benign 401.1 ; Concussion 850.9 and Skin texture changes 782.8 [facility] [id number] [place] [address] 35352- 5010 Dec, [facility] [id number] [place] [address] 10206- 3257 24 Dec, 2014 [facility] [id number] [place] [address] 48115- 2073 22 Dec, 2014 [facility] [id number] [place] [address] 73945- 2295 21 Dec, 2014 [facility] [id number] [place] [address] 61148- 4869 17 Dec, 2014 Affective disorder 296.90 [facility] [id number] [place] [address] 15165- 0652 14 Dec, 2014 [facility] [id number] [place] [address] 43905- 9774 10 Dec, 2014 Affective disorder 296.90 [facility] [id number] [place] [address] 04456- 8542 Dec, 2014 [facility] [id number] [address]- 3206 Dec, 2014 [facility] [address], [place] [address] 2546 Dec, 2014 [facility] [address], [place] [address] 2546 Dec, 2014 [facility] [id number] [place] [address] 16162 2546 Nov, Affective disorder 296.90 [facility] [address], [place] [address] 2546 Nov, [facility] [id number] [place] [address] 89305- 6056 Nov, Affective disorder 296.90 [facility] [address], [place] [address]- 8736 Nov, Diarrhea 787.91 [facility] [address], [place] [address] 2546 Nov, [facility] [address], [place] [address] 2543 Nov, Diarrhea 787.91 [facility] [address], [place] [address] 2546 Nov, Diarrhea 787.91 and Hyperlipidemia 272.4 [facility] [address], [place] [address] 2546 Nov, Diarrhea 787.91 [facility] [id number] [address] 2546 Nov, Affective disorder 296.90 [facility] [address], [place] [address]- 2546 Nov, Affective disorder 296.90 [facility] [id number], [place] [address]- 9136 Nov, Affective disorder 296.90 [facility] [address], [place] [address]- 3769 14 Nov, 2014 [facility] [address], [place] [address]- 9983 Nov, [facility] [address], [place] [address]- 3316 Nov, [facility] [id number] [place] [address] 37948- 7560 Nov, Episodic mood disorder 296.90 [facility] [address], [place] [address]- 5559 Nov, [facility] [id number] [place] [address] 83320- 4357 Nov, [facility] [id number], [place] [address]- 7260 Nov, [facility] [address], [place] [address]- 7175 Nov, [facility] [address], [place] [address]- 1555 Nov, [facility] [address], [place] [address]- 4718 Nov, Lymphedema 457.1 ; Hyperlipidemia 272.4 ; Essential hypertension, benign 401.1 and Numbness of toes 782.0 [facility] [address], [place] [address]- 8275 Nov, Episodic mood disorder 296.90 [facility] [address], [place] [address]- 1627 Oct, [facility] [address], [place] [address]- 7455 Oct, [facility] [address], [place] [address]- 5134 Oct, [facility] [id number] [place] [address]- 3752 15 Oct, 2014 [facility] [address] [facility] [id number] [place] [address]- 3450 14 Oct, 2014 [facility] [place] [facility] [address] [facility] [id number] [place] [address]- 4677 Oct, 2014 [facility] [address] [facility] [id number] [place] [address]- 0493 Oct, 2014 [facility] [place] [facility] [address] [facility] [id number] [place] [address]- 9230 Oct, 2014 [facility] [address] [facility] [id number] [place] [address]- 3588 Oct, Episodic mood disorder 296.90 [facility] [id number] [place] [address]- 9108 Sep, [facility] [address] [place] [address]- 4299 Sep, [facility] [address] [facility] [id number] [place] [address]- 1346 Sep, [facility] [place] [facility] [id number] [place] [address]- 6931 Sep, [facility] [id number] [place] [address]- 3765 Sep, [facility] [id number] [address]- 7076 Sep, Episodic mood disorder 296.90 [facility] [address] [facility] [id number] [place] [address]- 4877 Sep, Unspecified episodic mood disorder 296.90 [facility] [place] [facility] [id number] 8591 Sep, [facility] [place] [facility] [address] [id number] [place] [address] Sep, [facility] [place] [facility] [id number] [address] Sep, Episodic mood disorder 296.90 [facility] [id number] [place] [address]- [address] Sep, [facility] [id number] [address] Sep, [facility] [id number] [place] [address] 84388- [address]00 Sep, [facility] [id number] [place] [address]47- [address]12 Sep, Hematemesis 578.0 and Vomiting 787.03 [facility] [id number] [place] [address]- [address]321 Sep, Episodic mood disorder 296.90 [facility] [id number] [place] [address]- 3984 Sep, [facility] [id number] [place] [address]99- 4556 Sep, [facility] [id number] [place] [address]759- 5831 Sep, Diabetes mellitus without mention of complication, type II or unspecified type, not stated as uncontrolled 250.00 and Other chronic pain 338.29 [facility] [id number] [address] Sep, Episodic mood disorder 296.90 [facility] [id number] [address] Sep, [facility] [id number] [place] [address]- [address]446 Sep, Episodic mood disorder 296.90 [facility] [id number] [id number] Sep, [facility] [id number] [place] [address]32- 2402 August, [facility] [address] [facility] [id number] [place] [address] August, [facility] [address] [facility] [id number] [place] [address] August, Episodic mood disorder 296.90 [facility] [address] [id number] [address] August, [facility] [address] [id number] [place] [address] August, Unspecified episodic mood disorder 296.90 [facility] [address] [id number] [place] [address] 1176 August, Vomiting 787.03 [facility] [address] [id number] [place] [address]- [address]106 August, [facility] [id number] [place] [address] August, [facility] [address] [id number] [place] [address]- 1816 August, [facility] [id number] [place] [address] August, [facility] [address] [id number] [place] [address]- 4356 August, [facility] [address] [id number] [place] [address]- 6636 Jul, [facility] [address] [facility] [id number] [place] [address]- 3606 Jul, [facility] [address] [facility] [id number] [place] [address]- 0176 Jul, [facility] [address] [facility] [id number] [place] [address]- 8656 Jun, [facility] [address] [id number] [place] [address]- 6736 Jun, [facility] [place] [facility] [address] [id number] [place] [address]- 4919 30 Jun, 2014 [facility] [place] [facility] [address] [id number] [place] [address]- 9541 Jun, [facility] [place] [facility] [address] [id number] [place] [address]- 3736 Jun, [facility] [place] [facility] [address] [id number] [place] [address]- 4603 Jun, [facility] [place] [facility] [address] [id number] [place] [address]- 6720 Jun, [facility] [place] [facility] [address] [id number] [place] [address]- 1214 Jun, [facility] [place] [facility] [address] [id number] [place] [address]- 6797 Jun, [facility] [place] [facility] [address] [id number] [place] [address]- 0688 Jun, [facility] [place] [facility] [address] [id number] [place] [address]- 1561 Jun, [facility] [place] [facility] [address] [id number] [place] [address]- 4208 Jun, [facility] [place] [facility] [address] [id number] [place] [address]- 9825 Jun, [facility] [place] [facility] [address] [id number] [place] [address]- 5160 Jun, [facility] [place] [facility] [address] [id number] [place] [address]- 9723 Jun, [facility] [place] [facility] [address] [id number] [place] [address]- 3874 Jun, [facility] [place] [facility] [address] [id number] [place] [address]697 Jun, [facility] [place] [facility] [address] [id number] [place] [address]- 7038 23 Jun, 2014 [facility] [place] [facility] [address] [id number] [place] [address]- 7096 23 Jun, 2014 [facility] [place] [facility] [address] [id number] [place] [address]- 1885 21 Jun, 2014 [facility] [place] [facility] [address] [id number] [place] [address]- 6897 21 Jun, 2014 [facility] [place] [facility] [address] [id number] [place] [address]- 4158 20 Jun, 2014 [facility] [place] [facility] [address] [id number] [place] [address]- 7587 20 Jun, 2014 [facility] [place] [facility] [address] [id number] [place] [address]- 9946 20 Jun, 2014 [facility] [place] [facility] [address] [id number] [place] [address]- 8804 20 Jun, 2014 [facility] [place] [facility] [address] [id number] [place] [address]- 7586 19 Jun, 2014 [facility] [place] [facility] [address] [id number] [place] [address]- 0940 19 Jun, 2014 [facility] [place] [facility] [address] [id number] [place] [address]- 4891 18 Jun, 2014 [facility] [place] [facility] [address] [id number] [place] [address]- 5383 18 Jun, 2014 [facility] [place] [facility] [address] [id number] [place] [address]- 3242 17 Jun, 2014 [facility] [place] [facility] [address] [id number] [place] [address]- 0876 17 Jun, 2014 [facility] [place] [facility] [address] [id number] [place] [address]- 9426 16 Jun, 2014 [facility] [place] [facility] [address] [id number] [place] [address]- 2871 16 Jun, 2014 [facility] [place] [facility] [address] [id number] [place] [address]- 7696 16 Jun, 2014 [facility] [place] [facility] [address] [id number] [place] [address]- 4531 16 Jun, 2014 [facility] [place] [facility] [address] [id number] [place] [address]- 6226 16 Jun, 2014 [facility] [place] [facility] [address] [id number] [place] [address]- 7749 16 Jun, 2014 [facility] [place] [facility] [address] [id number] [place] [address]- 2729 13 Jun, 2014 [facility] [place] [facility] [address] [id number] [place] [address]- 1907 13 Jun, 2014 [facility] [place] [facility] [address] [id number] [place] [address]- 5363 Jun, 2014 [facility] [place] [facility] [address] [id number] [place] [address]- 0935 Jun, 2014 [facility] [place] [facility] [address] [id number] [place] [address]- 4991 Jun, [facility] [place] [facility] [address] [id number] [place] [address]- 2464 Jun, 2014 [facility] [place] [facility] [address] [id number] [place] [address]- 6002 Jun, 2014 [facility] [place] [facility] [address] [id number] [place] [address]- 8287 Jun, 2014 [facility] [place] [facility] [address] [id number] [place] [address]- 3958 Jun, 2014 [facility] [place] [facility] [address] [id number] [place] [address]- 8005 Jun, 2014 [facility] [place] [facility] [address] [id number] [place] [address]- 1516 Jun, 2014 [facility] [place] [facility] [address] [id number] [place] [address]- 4894 Jun, [facility] [place] [facility] [address] [id number] [place] [address]- 3933 Jun, [facility] [place] [facility] [address] [id number] [place] [address]- 1099 Jun, [facility] [place] [facility] [address] [id number] [place] [address]- 0028 Jun, [facility] [place] [facility] [address] [id number] [place] [address]- 3034 Jun, [facility] [place] [facility] [address] [id number] [place] [address]- 0034 Jun, [facility] [place] [facility] [address] [id number] [place] [address]- 6489 Jun, [facility] [place] [facility] [address] [facility] [id number] [place] [address]- 2722 Jun, [facility] [place] [facility] [address] [id number] [place] [address]- 3091 Jun, [facility] [place] [facility] [address] [id number] [place] [address]- 7134 May, [facility] [place] [facility] [address] [facility] [id number] [place] [address]- 0544 May, [facility] [place] [facility] [address] [id number], [place] [address]- 5226 May, 2014 [facility] [place] [facility] [address] [id number], [place] [address]- 7917 May, 2014 [facility] [place] [facility] [address] [id number] [place] [address]- 3838 May, [facility] [place] [facility] [address] [id number] [place] [address]- 3350 May, [facility] [place] [facility] [address] [facility] [id number] [place] [address]- 1738 May, [facility] [place] [facility] [address] [id number] [place] [address]- 9387 May, 2014 [facility] [place] [facility] [address] [id number] [place] [address]- 2366 May, 2014 [facility] [place] [facility] [address] [facility] [id number] [place] [address]- 2546 May, 2014 [facility] [place] [facility] [address] [facility] [id number] [place] [address]- 8995 18 May, 2014 [facility] [place] [facility] [address] [id number] [place] [address]- 2547 18 May, 2014 [facility] [place] [facility] [address] [facility] [id number] [place] [address]- 0306 13 May, 2014 [facility] [place] [facility] [address] [facility] [id number] [place] [address]- 2336 13 May, 2014 [facility] [place] [facility] [address] [facility] [id number] [place] [address]- 4868 May, 2014 [facility] [place] [facility] [address] [facility] [id number] [place] [address]- 8737 May, 2014 [facility] [place] [facility] [address] [facility] [id number] [place] [address]- 3873 May, 2014 [facility] [place] [facility] [address] [facility] [id number] [place] [address]- 5377 May, 2014 [facility] [place] [facility] [address] [facility] [id number], [place] [address]- 0397 May, 2014 [facility] [place] [facility] [address] [facility] [id number] [place] [address]- 2547 May, 2014 [facility] [place] [facility] [address] [facility] [id number] [place] [address]- 0101 May, 2014 [facility] [place] [facility] [address] [facility] [id number] [place] [address]- 7306 May, 2014 [facility] [place] [facility] [address] [facility] [id number] [place] [address]- 3433 May, [facility] [place] [facility] [address] [id number] [place] [address]- 8086 May, [facility] [place] [facility] [address] [id number] [place] 5066 May, [facility] [place] [facility] [address] [id number] [place] [address]- 5236 May, [facility] [place] [facility] [address] [id number] [place] [address]- 7874 May, [facility] [place] [facility] [address] [id number] [place] [address]- 3936 Apr, [facility] [place] [facility] [address] [id number] [place] [address]- 1969 Apr, [facility] [place] [facility] [address] [id number] [place] [address]- 2707 Apr, [facility] [place] [facility] [address] [id number] [place] [address]- 4625 Apr, [facility] [place] [facility] [address] [id number] [place] [address]- 8487 Apr, [facility] [place] [facility] [address] [id number] [place] [address]- 5199 Apr, [facility] [place] [facility] [address] [id number] [place] [address]- 4366 Apr, [facility] [place] [facility] [address] [id number] [place] [address]- 0808 Apr, [facility] [place] [facility] [address] [id number] [place] [address]- 1061 Apr, [facility] [place] [facility] [address] [id number] [place] [address]- 2816 Apr, [facility] [place] [facility] [address] [id number] [place] [address]- 4839 Apr, [facility] [place] [facility] [address] [id number] [place] [address]- 0964 Apr, [facility] [place] [facility] [address] [id number] [place] [address]- 7241 Apr, [facility] [place] [facility] [address] [id number] [place] [address]- 0025 Apr, [facility] [place] [facility] [address] [id number] [place] [address]- 5110 Apr, [facility] [place] [facility] [address] [id number] [place] [address]- 3765 Apr, [facility] [place] [facility] [address] [id number] [place] [address]- 9583 Apr, [facility] [place] [facility] [address] [id number] [place] [address]- 7776 Apr, [facility] [place] [facility] [address] [id number] [place] [address]- 0191 Apr, [facility] [place] [facility] [address] [id number] [place] [address]- 9257 Apr, [facility] [place] [facility] [address] [id number] [place] [address]- 3059 Mar, [facility] [place] [facility] [address] [id number] [place] [address]- 3173 Mar, [facility] [place] [facility] [address] [id number] [place] [address]- 8795 Mar, [facility] [place] [facility] [address] [id number] [place] [address]- 4346 Mar, [facility] [place] [facility] [address] [id number] [place] [address]- 9289 Mar, [facility] [place] [facility] [address] [id number] [place] 3612 Mar, [facility] [place] [facility] [address] [id number] [place] [address]- 3398 18 Mar, 2014 [facility] [place] [facility] [address] [id number] [place] [address]- 6339 18 Mar, 2014 [facility] [place] [facility] [address] [id number] [place] [address]- 8072 15 Mar, 2014 [facility] [place] [facility] [address] [id number] [place] [address]- 0226 15 Mar, 2014 [facility] [place] [facility] [address] [id number] [place] [address]- 9180 15 Mar, 2014 [facility] [place] [facility] [address] [id number] [place] [address]- 2869 15 Mar, 2014 [facility] [place] [facility] [address] [id number] [place] [address]- 1158 Mar, [facility] [place] [facility] [address] [id number] [place] [address]- 8314 Mar, [facility] [place] [facility] [address] [id number] [place] [address]- 7103 Mar, [facility] [place] [facility] [address] [id number] [place] [address]- 1692 Mar, [facility] [place] [facility] [address] [id number] [place] [address]- 2750 Feb, [facility] [place] [facility] [address] [id number] [place] [address]- 2180 Feb, [facility] [place] [facility] [address] [id number] [place] [address]- 2064 Feb, [facility] [place] [facility] [address] [id number] [place] [address]- 8967 Feb, [facility] [place] [facility] [address] [id number] [place] [address]- 5691 Feb, [facility] [place] [facility] [address] [id number] [place] [address]- 5971 Feb, [facility] [place] [facility] [address] [id number] [place] [address]- 5436 19 Feb, 2014 [facility] [place] [facility] [address] [id number] [place] [address]- 3659 18 Feb, 2014 [facility] [place] [facility] [address] [id number] [place] [address]- 5392 18 Feb, 2014 [facility] [place] [facility] [address] [id number] [place] [address]- 2396 17 Feb, 2014 [facility] [place] [facility] [address] [id number] [place] [address]- 8480 17 Feb, 2014 [facility] [place] [facility] [address] [id number] [place] [address]- 0286 17 Feb, 2014 [facility] [place] [facility] [address] [id number] [place] [address]- 9614 17 Feb, 2014 [facility] [place] [facility] [address] [id number] [place] [address]- 6806 14 Feb, 2014 [facility] [place] [facility] [address] [id number] [place] [address]- 5798 14 Feb, 2014 [facility] [place] [facility] [address] [id number] [place] [address]- 2469 14 Feb, 2014 [facility] [place] [facility] [address] [id number] [place] [address]- 8669 14 Feb, 2014 [facility] [place] [facility] [address] [id number] [place] [address]- 0444 10 Feb, 2014 [facility] [place] [facility] [address] [id number] [place] [address]- 5043 10 Feb, 2014 [facility] [place] [facility] [address] [id number] [place] [address]- 7910 04 Feb, 2014 [facility] [place] [facility] [address] [id number] [place] [address]- 0801 04 Feb, 2014 [facility] [place] [facility] [address] [id number] [place] [address]- 8578 Jan, 2013 [facility] [place] [facility] [address] [id number] [place] [address]- 2581 30 Jan, 2013 [facility] [place] [facility] [address] [id number] [place] [address]- 0348 30 Jan, 2013 [facility] [place] [facility] [address] [id number] [place] [address]- 1461 Jan, [facility] [place] [facility] [address] [id number] [place] [address]- 8815 Jan, [facility] [place] [facility] [address] [id number] [place] [address]- 5659 Jan, [facility] [place] [facility] [address] [id number] [place] [address]- 9318 Jan, [facility] [place] [facility] [address] [id number] [place] [address]- 0172 Jan, [facility] [place] [facility] [address] [id number], [place] [address]- 3515 Jan, [facility] [place] [facility] [address] [id number] [place] [address]- 8803 Jan, [facility] [place] [facility] [address] [id number], [place] [address]- 5426 Jan, [facility] [place] [facility] [address] [id number], [place] [address]- 6128 Jan, 2013 [facility] [place] [facility] [address] [id number], [place] [address]- 5446 Jan, 2013 [facility] [place] [facility] [address] [id number], [place] [address]- 0911 17 Jan, 2013 [facility] [place] [facility] [address] [id number], [place] [address]- 2170 15 Jan, 2014 [facility] [place] [facility] [address] [id number], [place] [address]- 9818 15 Jan, 2014 [facility] [place] [facility] [address] [id number] [place] [address]- 2943 14 Jan, 2014 [facility] [place] [facility] [address] [id number] [place] [address]- 8290 14 Jan, 2014 [facility] [place] [facility] [address] [id number] [place] [address]- 3663 13 Jan, 2014 [facility] [place] [facility] [address] [id number] [place] [address]- 6517 13 Jan, 2014 [facility] [place] [facility] [address] [id number] [place] [address]- 3375 13 Jan, 2014 [facility] [place] [facility] [address] [id number] [place] [address]- 8463 13 Jan, 2014 [facility] [place] [facility] [address] [id number] [place] [address]- 9218 10 Jan, 2014 [facility] [place] [facility] [address] [id number] [place] [address]- 3008 02 Jan, 2014 [facility] [place] [facility] [address] [id number] [place] [address]- 1632 02 Jan, 2014 [facility] [place] [facility] [address] [id number] [place] [address]- 6948 25 Dec, 2013 [facility] [place] [facility] [address] [id number] [place] [address]- 3548 25 Sep, 2013 [facility] [place] [facility] [address] [id number] [place] [address]- 254 23 Sep, 2013 [facility] [place] [facility] [address] [id number] [place] [address]- 2542 23 Sep, 2013 [facility] [place] [facility] [address] [id number] [place] [address]- 2541 19 Sep, 2013 [facility] [place] [facility] [address] [id number] [place] [address]- 254 19 Sep, 2013 [facility] [place] [facility] [address] [id number] [place] [address]- 7513 17 Sep, 2013 [facility] [place] [facility] [address] [id number] [place] [address]- 3676 17 Dec, 2013 [facility] [place] [facility] [address] [id number] [place] [address] Dec, 2013 [facility] [place] [facility] [address] [id number] [place] [address] Dec, 2013 [facility] [place] [facility] [address] [id number] [place] [address] 08 Dec, 2013 [facility] [place] [facility] [address] [id number] [place] [address]20 08 Dec, 2013 [facility] [place] [facility] [address] [id number] [place] [address] Dec, 2013 [facility] [place] [facility] [address] [id number] [place] [address]- [address] Dec, 2013 [facility] [place] [facility] [address] [id number] [place] [address] Dec, 2013 [facility] [place] [facility] [address] [id number] [place] [address] Dec, 2013 [facility] [place] [facility] [address] [id number] [place] [address] Dec, 2013 [facility] [place] [facility] [address] [id number] [place] [address] 47[address] Dec, 2013 [facility] [place] [facility] [address] [id number] [place] [address]- [address]693 Nov, [facility] [place] [facility] [address] [id number] [place] [address]- 6485 Nov, [facility] [place] [facility] [address] [id number] [place] [address] 8640 Nov, [facility] [place] [facility] [address] [id number] [place] [address]- [address] Nov, [facility] [place] [facility] [address] [id number] [place] [address]- 2016 Nov, [facility] [place] [facility] [address] [id number] [place] [address]- [address]561 Nov, [facility] [place] [facility] [address] [id number] [place] [address] 4697 Nov, [facility] [place] [facility] [address] [id number] [place] [address]- 9118 Nov, [facility] [place] [facility] [address] [id number] [place] [address]- 3456 Nov, [facility] [place] [facility] [address] [id number] [place] [address]- [address]17 Nov, [facility] [place] [facility] [address] [id number] [place] [address]- 1425 Nov, [facility] [place] [facility] [address] [id number] [place] [address]- 7516 Nov, [facility] [place] [facility] [address] [id number] [place] [address] 3808 Oct, [facility] [place] [facility] [address] [id number] [place] [address]- 2626 Oct, [facility] [place] [facility] [address] [id number] [place] [address]- 6550 Oct, [facility] [place] [facility] [address] [id number] [place] [address]- 1242 Oct, [facility] [place] [facility] [address] [id number] [place] [address]- 4363 Oct, [facility] [place] [facility] [address] [id number] [place] [address]- 5091 Oct, [facility] [place] [facility] [address] [id number] [place] [address]- 9056 Oct, [facility] [place] [facility] [address] [id number] [place] [address]- 0151 Oct, [facility] [place] [facility] [address] [id number] [place] [address]- 3788 22 Oct, 2013 [facility] [place] [facility] [address] [id number] [place] [address]- 1047 22 Oct, 2013 [facility] [place] [facility] [address] [id number] [place] [address]- 3667 16 Oct, 2013 [facility] [place] [facility] [address] [id number] [place] [address]- 8266 16 Oct, 2013 [facility] [place] [facility] [address] [id number] [place] [address]- 3502 14 Oct, 2013 [facility] [place] [facility] [address] [id number] [place] [address]- 4878 14 Oct, 2013 [facility] [place] [facility] [address] [id number] [place] [address]- 1034 13 Oct, 2013 [facility] [place] [facility] [address] [id number] [place] [address]- 9030 13 Oct, 2013 [facility] [place] [facility] [address] [id number] [place] [address]- [address] 2013 [facility] [place] [facility] [address] [id number] [place] [address]- 1334 27 Sep, 2013 [facility] [place] [facility] [address] [id number] [place] [address]- [address] 27 Sep, 2013 [facility] [place] [facility] [address] [id number] [place] [address]- 1355 20 Sep, 2013 [facility] [place] [facility] [address] [id number] [place] [address]- 9958 20 Sep, 2013 [facility] [place] [facility] [address] [id number] [place] [address]- 9976 18 Sep, 2013 [facility] [place] [facility] [address] [id number] [place] [address]- 5257 18 Sep, 2013 [facility] [place] [facility] [address] [id number] [place] [address]- 7171 Sep, [facility] [place] [facility] [address] [id number] [place] [address]- 4350 17 Sep, 2013 [facility] [place] [facility] [address] [id number] [place] [address]- 9073 Sep, [facility] [place] [facility] [address] [id number] [place] [address]- 0027 Sep, [facility] [place] [facility] [address] [id number] [place] [address]- 5841 Sep, [facility] [place] [facility] [address] [id number] [place] [address]- 4068 Sep, [facility] [place] [facility] [address] [id number] [place] [address]- 6211 Sep, [facility] [place] [facility] [address] [id number] [place] [address]- 0726 Sep, [facility] [place] [facility] [address] [id number] [place] [address]- 4927 Sep, [facility] [place] [facility] [address] [id number] [place] [address]- 2730 Sep, [facility] [place] [facility] [address] [id number] [place] [address]- 6147 Sep, [facility] [place] [facility] [address] [id number] [place] [address]- 6990 Sep, [facility] [place] [facility] [address] [id number] [place] [address]- 3758 Sep, [facility] [place] [facility] [address] [id number] [place] [address]- 9875 Sep, [facility] [place] [facility] [address] [id number] [place] [address]- 1826 Sep, [facility] [place] [facility] [address] [id number] [place] [address]- 1838 Sep, [facility] [place] [facility] [address] [id number] [place] [address]- 8698 August, [facility] [address] [id number] [place] [address]- 7280 August, [facility] [place] [facility] [address] [id number] [place] [address]- 5024 August, [facility] [address] [id number] [place] [address]- 2224 August, [facility] [place] [facility] [address] [id number] [place] [address]- 1707 August, [facility] [address] [id number] [place] [address]- 4113 August, [facility] [place] [facility] [address] [id number] [place] [address]- 9130 August, [facility] [address] [id number] [place] [address]- 4052 August, [facility] [address] [id number] [place] [address]- 7156 August, [facility] [address] [id number] [place] [address] August, [facility] [place] [facility] [address] [id number] [place] [address]227 August, [facility] [place] [facility] [address] [id number] [place] [address]958 Jul, [facility] [place] [facility] [address] [id number] [place] [address] 3760 Jul, [facility] [place] [facility] [address] [id number] [place] [address] 7665 Jul, [facility] [place] [facility] [address] [id number] [place] [address] 2559 Jul, [facility] [place] [facility] [address] [id number] [place] [address] 2723 Jul, [facility] [place] [facility] [address] [id number] [place] [address]- 3698 23 Jul, 2013 [facility] [place] [facility] [address] [id number] [place] [address] 2798 Jul, [facility] [place] [facility] [address] [id number] [place] [address]- 2015 Jul, [facility] [place] [facility] [address] [id number] [place] [address]- 6767 18 Jul, 2013 [facility] [place] [facility] [address] [id number] [place] [address]- 2933 18 Jul, 2013 [facility] [place] [facility] [address] [id number] [place] [address]- 8752 16 Jul, 2013 [facility] [place] [facility] [address] [id number] [place] [address]- 4876 14 Jul, 2013 [facility] [place] [facility] [address] [id number] [place] [address]- 9292 14 Jul, 2013 [facility] [place] [facility] [address] [id number] [place] [address]- 5897 Jul, [facility] [place] [facility] [address] [id number] [place] [address]- 8405 11 Jul, 2013 [facility] [place] [facility] [address] [id number] [place] [address]- 8383 10 Jul, 2013 [facility] [place] [facility] [address] [id number] [place] [address]- 6648 10 Jul, 2013 [facility] [place] [facility] [address] [id number] [place] [address]- 7026 05 Jul, 2013 [facility] [place] [facility] [address] [id number] [place] [address]- 4704 05 Jul, 2013 [facility] [place] [facility] [address] [id number] [place] [address]- 9212 02 Jul, 2013 [facility] [place] [facility] [address] [id number] [place] [address]- 7948 Jul, [facility] [place] [facility] [address] [id number] [place] [address]- 7185 Jul, [facility] [place] [facility] [address] [id number] [place] [address]- 2306 Jul, [facility] [place] [facility] [address] [id number] [place] [address]- 6138 Jun, [facility] [place] [facility] [address] [id number] [place] [address]- 5458 Jun, [facility] [place] [facility] [address] [id number] [place] [address]- 6379 Jun, [facility] [place] [facility] [address] [id number] [place] [address]- 9737 Jun, [facility] [place] [facility] [address] [id number] [place] [address]- 4265 Jun, [facility] [place] [facility] [address] [id number] [place] [address]- 3193 Jun, [facility] [place] [facility] [address] [id number] [place] [address]- 5015 Jun, [facility] [place] [facility] [address] [id number] [place] [address]- 8441 Jun, [facility] [place] [facility] [address] [id number] [place] [address]- 6744 Jun, [facility] [place] [facility] [address] [id number], [place] [address]- 7151 Jun, [facility] [place] [facility] [address] [id number] [place] [address]- 3134 Jun, [facility] [place] [facility] [address] [id number] [place] [address]- 6303 Jun, [facility] [place] [facility] [address] [id number] [place] [address]- 3776 18 May, 2013 [facility] [place] [facility] [address] [id number] [place] [address]- 3514 May, [facility] [address] [id number] [place] [address]- 9651 Apr, [facility] [address] [id number] [place] [address]- 3179 Apr, [facility] [address] [id number] [place] [address]- 0417 Apr, [facility] [address] [id number] [place] [address]- 6645 Apr, [facility] [address] [id number] [place] [address]- 9839 Apr, [facility] [address] [id number] [place] [address]- 8962 Apr, [facility] [address] [id number] [place] [address]- 8990 Apr, [facility] [address] [id number] [place] [address]- 7339 Apr, [facility] [address] [id number] [place] [address]- 0462 Apr, [facility] [address] [id number] [place] [address]- 8312 Apr, [facility] [address] [id number] [place] [address]- 8302 Apr, [facility] [address] [id number] [place] [address]- 9312 Mar, [facility] [place] [facility] [address] [id number] [place] [address]- 4887 Mar, [facility] [address] [id number] [place] [address]- 5247 Mar, [facility] [address] [id number] [place] [address]- 8221 Mar, [facility] [place] [facility] [address] [id number] [place] [address]- 6173 Feb, [facility] [place] [facility] [address] [id number] [place] [address]- 8390 Feb, [facility] [place] [facility] [address] [id number], [place] [address]- 7520 Feb, [facility] [place] [facility] [address] [id number], [place] [address]- 1656 Feb, [facility] [place] [facility] [address] [id number] [place] [address]- 1931 Feb, [facility] [place] [facility] [address] [id number], [place] [address]- 7211 Feb, [facility] [place] [facility] [address] [id number], [place] [address]- 9479 Feb, [facility] [place] [facility] [address] [id number], [place] [address]- 5562 Feb, [facility] [place] [facility] [address] [id number], [place] [address]- 3660 Feb, [facility] [place] [facility] [address] [facility] [id number], [place] [address]- 3393 Feb, [facility] [place] [facility] [address] [id number], [place] [address]- 4031 Feb, [facility] [place] [facility] [address] [id number], [place] [address]- 6671 Jan, [facility] [place] [facility] [address] [id number], [place] [address]- 0498 Jan, [facility] [place] [facility] [address] [id number], [place] [address]- 9397 Jan, [facility] [place] [facility] [address] [facility] [id number], [place] [address]- 7342 Jan, [facility] [place] [facility] [address] [id number], [place] [address]- 9088 10 Jan, 2013 [facility] [address] [id number] [place] [address]- 5959 10 Jan, 2013 [facility] [place] [facility] [address] [id number] [place] [address]- 8204 03 Jan, 2013 [facility] [place] [facility] [address] [id number] [place] [address]- 3053 02 Jan, 2013 [facility] [place] [facility] [address] [id number] [place] [address]- 1564 30 Dec, 2012 [facility] [place] [facility] [address] [id number] [place] [address]- 3110 25 Dec, 2012 [facility] [place] [facility] [address] [id number] [place] [address]- 3194 18 Dec, 2012 [facility] [place] [facility] [address] [id number] [place] [address]- 9054 17 Dec, 2012 [facility] [place] [facility] [address] [id number] [place] [address]- 0117 17 Dec, 2012 [facility] [place] [facility] [address] [id number] [place] [address]- 6221 16 Dec, 2012 [facility] [place] [facility] [address] [id number] [place] [address]- 7682 13 Dec, 2012 [facility] [place] [facility] [address] [id number] [place] [address]- 3990 11 Dec, 2012 [facility] [place] [facility] [address] [id number] [place] [address]- 2544 05 Dec, 2012 [facility] [place] [facility] [address] [id number] [place] [address]- 8011 04 Dec, 2012 [facility] [place] [facility] [address] [id number] [place] [address]- 8764 30 Nov, 2012 [facility] [place] [facility] [address] [id number] [place] [address]- 0277 29 Nov, 2012 [facility] [place] [facility] [address] [id number] [place] [address]- 7552 22 Nov, 2012 [facility] [place] [facility] [address] [id number] [place] [address]- 3847 16 Nov, 2012 [facility] [place] [facility] [address] [id number] [place] [address]- 1936 14 Nov, 2012 [facility] [place] [facility] [address] [id number] [place] [address]- 0994 Nov, [facility] [place] [facility] [address] [id number] [place] [address]- 3950 05 Nov, 2012 [facility] [place] [facility] [address] [id number] [place] [address]- 2760 Oct, [facility] [place] [facility] [address] [id number] [place] [address]- 8663 Oct, [facility] [place] [facility] [address] [id number] [place] [address]- 1829 Oct, [facility] [place] [facility] [address] [id number] [place] [address]- 5599 Oct, [facility] [place] [facility] [address] [id number] [place] [address]- 4677 Oct, [facility] [place] [facility] [address] [id number] [place] [address]- 8389 Oct, [facility] [place] [facility] [address] [id number] [place] [address]- 7023 Sep, [facility] [place] [facility] [address] [id number] [place] [address]- 8126 28 Sep, 2012 [facility] [place] [facility] [address] [id number] [place] [address]- 8953 27 Sep, 2012 [facility] [place] [facility] [address] [id number] [place] [address]- 0077 14 Sep, 2012 [facility] [place] [facility] [address] [id number] [place] [address]- 9703 Sep, [facility] [address] [id number] [place] [address]- 0084 Sep, [facility] [address] [id number] [place] [address]- 3797 Sep, [facility] [address] [id number] [place] [address]- 7644 Sep, [facility] [address] [id number] [place] [address]- 5939 Sep, [facility] [address] [id number] [place] [address]- 7485 August, [facility] [address] [id number] [place] [address]- 2096 August, [facility] [address] [id number] [place] [address]- 9969 August, [facility] [address] [id number] [place] [address]- 0694 August, [facility] [address] [id number] [place] [address]- 9744 August, [facility] [address] [id number] [place] [address]- 8115 August, [facility] [address] [id number] [place] [address]- 4172 August, [facility] [address] [id number] [place] [address]- 9311 August, [facility] [address] [id number] [place] [address]- 4376 Jul, [facility] [address] [id number] [place] [address]- 6568 Jul, [facility] [address] [place] [id number] Jul [facility] [address] [id number] [place] [address]- 5236 Jun, [facility] [address] [id number] [place] [address]- 6206 Jun, [facility] [address] [id number] [place] [address]- 8186 Jun, [facility] [address] [facility] [id number] [place] [address]- 2723 Jun, [facility] [address] [id number] [place] [address]- 1450 Jun, [facility] [address] [id number] [place] [address]- 5025 Jun, [facility] [address] [id number] [place] [address]- 5759 May, [facility] [address] [facility] [id number] [place] [address]- 1425 May, [facility] [address] [id number] [place] [address]- 9840 May, [facility] [address] [id number] [place] [address]- 8621 May, [facility] [address] [facility] [id number] [place] [address]- 4998 May, [facility] [address] [id number], [place] [address]- 2249 Apr, [facility] [place] [facility] [address] [id number], [place] [address]- 0672 Apr, [facility] [place] [facility] [address] [id number] [place] [address]- 6121 Apr, [facility] [place] [facility] [address] [id number], [place] [address]- 6778 Apr, [facility] [place] [facility] [address] [facility] [id number], [place] [address]- 0424 Apr, [facility] [place] [facility] [address] [id number] [place] [address]- 7376 Apr, [facility] [place] [facility] [address] [id number] [place] [address]- 2716 Mar, [facility] [place] [facility] [address] [id number] [place] [address] 2546 Mar, [facility] [place] [facility] [address] [id number] [place] [address]- 9886 Mar, [facility] [place] [facility] [address] [id number] [place] [address]- 7589 Mar, [facility] [place] [facility] [address] [id number] [place] [address]- 6136 Mar, [facility] [place] [facility] [address] [id number] [place] [address]- 9012 Mar, [facility] [place] [facility] [address] [id number] [place] [address]- 9977 Mar, [facility] [place] [facility] [address] [id number] [place] [address]- 9634 Mar, [facility] [place] [facility] [address] [id number] [place] [address]- 0356 Mar, [facility] [place] [facility] [address] [id number] [place]202 Mar, [facility] [place] [facility] [address] [id number] [place] [address]- 5136 Mar, [facility] [place] [facility] [address] [id number] [place] [address]- 5665 Feb, [facility] [place] [facility] [address] [id number] [place] [address]- 9476 Feb, [facility] [place] [facility] [address] [id number] [place] [address]- 0226 Feb, [facility] [place] [facility] [address] [id number] [place] [address]- 6027 Feb, [facility] [place] [facility] [address] [id number] [place] [address]- 6294 Feb, [facility] [place] [facility] [address] [id number] [place] [address]- 4678 Feb, [facility] [place] [facility] [address] [facility] [id number] [place] 8890 Feb, [facility] [place] [facility] [address] [id number] [place] [address], [place] [address]- 2212 Feb, [facility] [place] [facility] [address] [id number] [place] [address]- 4574 Feb, [facility] [place] [facility] [address] [id number] [place] [address], [place] [address]- 0490 Feb, [facility] [place] [facility] [address] [facility] [id number] [place] [address]- 7951 Feb, [facility] [place] [facility] [address] [id number], [place] [address]- 9854 Jan, [facility] [place] [facility] [address] [id number], [place] [address]- 5588 Jan, [facility] [place] [facility] [address] [facility] [id number], [place] [address]- 1326 Jan, [facility] [place] [facility] [address] [id number], [place] [address]- 0720 Jan, [facility] [place] [facility] [address] [id number], [place] [address]- 4017 Jan, [facility] [place] [facility] [address] [id number], [place] [address]- 3789 Jan, [facility] [place] [facility] [address] [facility] [id number], [place] [address]- 6403 Jan, [facility] [place] [facility] [address] [facility] [id number], [place] [address]- 1017 24 Dec, 2011 [facility] [place] [facility] [address] [id number] [place] [address]- 8902 17 Dec, 2011 [facility] [place] [facility] [address] [id number] [place] [address]- 0546 13 Dec, 2011 [facility] [place] [facility] [address] [id number] [place] [address]- 8896 12 Dec, 2011 [facility] [place] [facility] [address] [id number] [place] [address]- 6196 23 Nov, 2011 [facility] [place] [facility] [address] [id number] [place] [address] 2546 20 Nov, 2011 [facility] [place] [facility] [address] [id number] [place] [address]- 2125 17 Nov, 2011 [facility] [place] [facility] [address] [id number] [place] [address]- 2819 15 Nov, 2011 [facility] [place] [facility] [address] [id number] [place] [address]- 1160 14 Nov, 2011 [facility] [place] [facility] [address] [id number] [place] [address]- 2210 Nov, [facility] [place] [facility] [address] [id number] [place] [address]- 9224 Nov, [facility] [place] [facility] [address] [id number] [place] [address]- 7461 Nov, [facility] [place] [facility] [address] [id number] [place] [address]- 7446 Nov, [facility] [place] [facility] [address] [id number] [place] [address]- 2549 Nov, [facility] [place] [facility] [address] [id number] [place] [address]- 8709 Nov, [facility] [place] [facility] [address] [id number] [place] [address]- 5056 Nov, [facility] [place] [facility] [address] [id number] [place] [address]- 6272 Nov, [facility] [place] [facility] [address] [id number] [place] [address]- 8559 Oct, [facility] [place] [facility] [address] [id number] [place] [address]- 3138 Oct, [facility] [place] [facility] [address] [id number] [place] [address]- 0126 Oct, [facility] [place] [facility] [address] [id number] [place] [address]- 1276 Oct, [facility] [place] [facility] [address] [id number] [place] [address]- 6904 Oct, [facility] [place] [facility] [address] [id number] [place] [address]- 8352 Oct, [facility] [place] [facility] [address] [id number] [place] [address]- 2122 Oct, [facility] [place] [facility] [address] [id number] [place] [address]- 4374 Oct, [facility] [place] [facility] [address] [id number] [place] [address] Oct, [facility] [place] [facility] [address] [id number] [place] [address] Sep, [facility] [place] [facility] [address] [id number] [place] [address] Sep, [facility] [place] [facility] [address] [id number] [place] [address] Sep, [facility] [place] [facility] [address] [id number] [place] [address] Sep, [facility] [place] [facility] [address] [id number] [place] [address] Sep, [facility] [place] [facility] [address] [id number] [place] [address] Sep, [facility] [place] [facility] [address] [id number] [place] [address] Sep, [facility] [address] [id number] [address] Sep, [facility] [id number] [address] August, [facility] [id number] [address] August, [facility] [id number], [place] [address] August, [facility] [id number], [place] [address] August, [facility] [address] [id number] [address] August, [facility] [id number] [place] [address] August, [facility] [id number], [place] [address] August, [facility] [id number], [place] [address] August, [facility] [id number], [place] [address] August, [facility] [id number] [place] [address] August, [facility] [address] [id number] [address] August, [facility] [address] [id number] [address] August, [facility] [id number] [address] Oct, IMMUNIZATIONS No Known Immunizations SOCIAL HISTORY [...] bladder surgery Hospitalization History [facility] for right groin pain 05/2011 Hospitalization History [facility] for wound on buttocks 08/2012 Hospitalization History Via [facility], hypoxia secondary to pneumonia 12/02-12/09 Hospitalization History Pneumonia, elevated CO2 on Bipap was in ICU 08/2013 Hospitalization History Hypoxia, Exacerbation COPD, Chest pain 09/05/15 Hospitalization History [place] ideations-[place] 12/28 Hospitalization History hypoxia--[facility] 02/13/2016 Hospitalization History shortness of breath at june 2016 Hospitalization History Shortness of breath at august 2016 Hospitalization History SOB, chest pain at 12/2016
--- OUTSIDE RECORDS SUMMARY | 2017-11-24 18:28 | XMS REPORT ---
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 diabetes mellitus with hyperglycemia E11.65 [facility] [address], [place] [address]- 6900 May, Unspecified mood [affective] disorder [address] [place] [address] [address], [place] [address]- 7279 May, [facility] [address], [place] [address]- 1235 May, [facility] [id number] [place] [address] 07488- 8156 May, [facility] [id number] [place] [address] 23104- 1211 Apr, [facility] [id number] [place] [address] 44659- 2044 Apr, Unspecified mood [affective] disorder F39 [facility] [id number] [place] [address] 74214- 1579 Apr, [facility] [id number] [place] [address] 51070- 6881 Apr, [facility] [id number] [place] [address] 21882- 6197 Apr, [facility] [id number] [place] [address] 08928- 0484 Apr, Dysuria R30.0 and Well woman exam (no gynecological exam) Z00.00 [place] [id number] [place] [address] 70944- 1671 Mar, [facility] [address] [place] [address] 14951- 0892 Mar, [facility] [address] [place] [address] [id number] Mar, Dental examination Z01.20 [facility] [address] [place] [address] 29632- 4894 Mar, Chronic diarrhea K52.9 ; Intractable vomiting with nausea, vomiting of unspecified type R11.2 ; Cellulitis, unspecified cellulitis site L03.90 ; Type 2 diabetes mellitus with diabetic polyneuropathy E11.42 and Postinflammatory hyperpigmentation L81.0 [facility] [address] [place] [address] 16200- 9694 Mar, Unspecified mood [affective] disorder F39 [facility] [address] [facility] [id number], [place] [address]- 9920 Mar, Unspecified mood [affective] disorder F39 [facility] [address] [facility] [id number], [place] [address]- 3713 Mar, [facility] [address] [facility] [id number], [place] [address]- 8245 Mar, [facility] [address] [facility] [id number], [place] [address]- 2114 Mar, [facility] [address] [facility] [id number], [place] [address]- 0534 Mar, [facility] [address] [facility] [id number], [place] [address]- 0885 Mar, [facility] [id number], [place] [address]- 4494 Mar, [facility] [address] [facility] [id number], [place] [address]- 0717 Feb, Unspecified mood [affective] disorder F39 [facility] [address] [facility] [id number], [place] [address]- 8170 Feb, [facility] [id number], [place] [address]- 7407 Feb, [facility] [id number], [place] [address]- 9560 Jan, Unspecified mood [affective] disorder F39 [facility] [address] [id number] [id number] Jan, Encounter for dental examination Z01.20 [facility] [id number], [place] [address]- 6115 Jan, [facility] [id number], [place] [address]- 5241 Jan, [facility] [id number] [place] [address] 56032- 2360 Jan, [facility] [id number] [place] [address] 25868- 0866 Jan, [facility] [id number] [place] [address] 87859- 9910 Jan, [facility] [address] 82599- 0859 Jan, Abdominal abscess K65.1 and Dental caries K02.9 [facility] [address] 38056- 0413 Jan, [facility] [address] 28277- 7641 30 Dec, 2014 Diabetes with neurological manifestations, type II or unspecified type, not stated as uncontrolled 250.60 ; Essential hypertension, benign 401.1 ; Concussion 850.9 and Skin texture changes 782.8 [facility] [id number] [place] [address] 21890- 7963 Dec, [facility] [id number] [place] [address] 64822- 4438 24 Dec, 2014 [facility] [id number] [place] [address] 80221- 9186 22 Dec, 2014 [facility] [id number] [place] [address] 66485- 0634 21 Dec, 2014 [facility] [id number] [place] [address] 15443- 0387 17 Dec, 2014 Affective disorder 296.90 [facility] [id number] [place] [address] 99070- 4376 14 Dec, 2014 [facility] [id number] [place] [address] 96628- 4719 10 Dec, 2014 Affective disorder 296.90 [facility] [id number] [place] [address] 47231- 5211 Dec, 2014 [facility] [id number], [place] [address]- 4586 Dec, 2014 [facility] [address], [place] [address] 2546 Dec, 2014 [facility] [address], [place] [address] 2546 Dec, 2014 [facility] [id number] [place] [address] 68620 2546 Nov, Affective disorder 296.90 [facility] [address], [place] [address] 2546 Nov, [facility] [address] [place] [address] 97529- 1987 Nov, Affective disorder 296.90 [facility] [address], [place] [address]- 9906 Nov, Diarrhea 787.91 [facility] [address], [place] [address] 2546 Nov, [facility] [address], [place] [address] 2543 Nov, Diarrhea 787.91 [facility] [address], [place] [address] 2546 Nov, Diarrhea 787.91 and Hyperlipidemia 272.4 [facility] [address], [place] [address] 2546 Nov, Diarrhea 787.91 [facility] [id number], [place] [address] 2546 Nov, Affective disorder 296.90 [facility] [address], [place] [address]- 2546 Nov, Affective disorder 296.90 [facility] [id number], [place] [address]- 7006 Nov, Affective disorder 296.90 [facility] [address], [place] [address]- 3533 14 Nov, 2014 [facility] [address], [place] [address]- 1992 Nov, [facility] [address], [place] [address]- 8753 Nov, [facility] [address] [place] [address] 76858- 3431 Nov, Episodic mood disorder 296.90 [facility] [address], [place] [address]- 8692 Nov, [facility] [address] [place] [address] 51712- 8556 Nov, [facility] [address], [place] [address]- 9319 Nov, [facility] [address], [place] [address]- 3399 Nov, [facility] [address], [place] [address]- 0338 Nov, [facility] [address], [place] [address]- 3015 Nov, Lymphedema 457.1 ; Hyperlipidemia 272.4 ; Essential hypertension, benign 401.1 and Numbness of toes 782.0 [facility] [address], [place] [address]- 1557 Nov, Episodic mood disorder 296.90 [facility] [address], [place] [address]- 5841 Oct, [facility] [address], [place] [address]- 5053 Oct, [facility] [address], [place] [address]- 2851 Oct, [facility] [id number] [place] [address]- 6477 15 Oct, 2014 [facility] [address] [facility] [id number] [place] [address]- 4656 14 Oct, 2014 [facility] [place] [facility] [address] [facility] [id number] [place] [address]- 1237 Oct, 2014 [facility] [address] [facility] [id number] [place] [address]- 1094 Oct, 2014 [facility] [place] [facility] [address] [facility] [id number] [place] [address]- 8737 Oct, 2014 [facility] [address] [facility] [id number] [place] [address]- 7018 Oct, Episodic mood disorder 296.90 [facility] [id number] [place] [address]- 2957 Sep, [facility] [id number] [place] [address]- 4256 Sep, [facility] [address] [facility] [id number] [place] [address]- 0930 Sep, [facility] [place] [facility] [id number] [place] [address]- 1295 Sep, [facility] [id number] [place] [address]- 1410 Sep, [facility] [id number], [place] [address]- 8001 Sep, Episodic mood disorder 296.90 [facility] [address] [facility] [id number] [place] [address]- 2300 Sep, Unspecified episodic mood disorder 296.90 [facility] [place] [facility] [id number] 8248 Sep, [facility] [place] [facility] [id number] [place] [address]- 0526 Sep, [facility] [place] [facility] [address], [place] [address]- 2479 Sep, Episodic mood disorder 296.90 [facility] [id number] [place] [address] 21118- 4782 Sep, [facility] [address], [place] [address]- 6460 Sep, [facility] [id number] [place] [address] 86759- 0281 Sep, [facility] [id number] [place] [address] 90555- 3599 Sep, Hematemesis 578.0 and Vomiting 787.03 [facility] [id number] [place] [address] 85221- 7622 Sep, Episodic mood disorder 296.90 [facility] [id number] [place] [address] 14954- 2235 Sep, [facility] [id number] [place] [address] 49958- 2895 Sep, [facility] [address] [place] [address] 92886- 3022 Sep, Diabetes mellitus without mention of complication, type II or unspecified type, not stated as uncontrolled 250.00 and Other chronic pain 338.29 [facility] [address], [place] [address]- 8081 Sep, Episodic mood disorder 296.90 [facility] [address], [place] [address]- 8663 Sep, [facility] [address] [place] [address] 89915- 2168 Sep, Episodic mood disorder 296.90 [facility] [address] [address]- 6751 Sep, [facility] [address] [place] [address] 68578- 6883 August, [facility] [address] [facility] [id number] [place] [address]- 5045 August, [facility] [address] [facility] [id number] [place] [address]- 1566 August, Episodic mood disorder 296.90 [facility] [id number] [place] [address]- 3966 August, [facility] [id number] [place] [address]- 2965 August, Unspecified episodic mood disorder 296.90 [facility] [id number] [place] [address]- 4861 August, Vomiting 787.03 [facility] [id number] [place] [address]- 9736 August, [facility] [address] [place] [address]- 6046 August, [facility] [id number] [place] [address]- 6666 August, [facility] [address] [place] [address]- 2666 August, [facility] [id number] [place] [address]- 2516 August, [facility] [id number] [place] [address]- 3526 Jul, [facility] [address] [facility] [id number] [place] [address]- 8476 Jul, [facility] [address] [facility] [id number] [place] [address]- 3716 Jul, [facility] [address] [facility] [id number] [place] [address]- 9136 Jun, [facility] [id number] [place] [address]- 6596 Jun, [facility] [place] [facility] [address] [id number] [place] [address] 30 Jun, 2014 [facility] [place] [facility] [address] [id number] [place] [address] Jun, [facility] [place] [facility] [address] [id number] [place] [address] Jun, [facility] [place] [facility] [address] [id number] [place] [address] Jun, [facility] [place] [facility] [address] [id number] [place] [address] Jun, [facility] [place] [facility] [address] [id number] [place] [address] Jun, [facility] [place] [facility] [address] [id number] [place] [address] Jun, [facility] [place] [facility] [address] [id number] [place] [address] Jun, [facility] [place] [facility] [address] [id number] [place] [address] Jun, [facility] [place] [facility] [address] [id number] [place] [address] Jun, [facility] [place] [facility] [address] [id number] [place] [address] Jun, [facility] [place] [facility] [address] [id number] [place] [address] Jun, [facility] [place] [facility] [address] [id number] [place] [address] Jun, [facility] [place] [facility] [address] [id number] [place] [address] Jun, [facility] [place] [facility] [address] [id number] [place] [address] Jun, [facility] [place] [facility] [address] [id number] [place] [address] 23 Jun, 2014 [facility] [place] [facility] [address] [id number] [place] [address] 23 Jun, 2014 [facility] [place] [facility] [address] [id number] [place] [address] 21 Jun, 2014 [facility] [place] [facility] [address] [id number] [place] [address] 21 Jun, 2014 [facility] [place] [facility] [address] [id number] [place] [address] 20 Jun, 2014 [facility] [place] [facility] [address] [id number] [place] [address] 164[address] 20 Jun, 2014 [facility] [place] [facility] [address] [id number] [place] [address] 20 Jun, 2014 [facility] [place] [facility] [address] [id number] [place] [address] 20 Jun, 2014 [facility] [place] [facility] [address] [id number] [place] [address] 19 Jun, 2014 [facility] [place] [facility] [address] [id number] [place] [address] 19 Jun, 2014 [facility] [place] [facility] [address] [id number] [place] [address] 18 Jun, 2014 [facility] [place] [facility] [address] [id number] [place] [address] 18 Jun, 2014 [facility] [facility] [address] [id number] [place] [address] 17 Jun, 2014 [facility] [place] [facility] [address] [id number] [place] [address] 5134 17 Jun, 2014 [facility] [place] [facility] [address] [id number] [place] [address] 0570 16 Jun, 2014 [facility] [place] [facility] [address] [id number] [place] [address] 9169 16 Jun, 2014 [facility] [place] [facility] [address] [id number] [place] [address] 3276 16 Jun, 2014 [facility] [place] [facility] [address] [id number] [place] [address]- 9569 16 Jun, 2014 [facility] [place] [facility] [address] [id number] [place] [address] 2156 16 Jun, 2014 [facility] [place] [facility] [address] [id number] [place] [address]- 7573 16 Jun, 2014 [facility] [place] [facility] [address] [id number] [place] [address] 9366 13 Jun, 2014 [facility] [place] [facility] [address] [id number] [place] [address]- 3731 13 Jun, 2014 [facility] [place] [facility] [address] [id number] [place] [address]- 7692 Jun, 2014 [facility] [place] [facility] [address] [id number] [place] [address]- 1699 Jun, 2014 [facility] [place] [facility] [address] [id number] [place] [address]- 3065 Jun, [facility] [place] [facility] [address] [id number] [place] [address]- 7952 Jun, 2014 [facility] [address] [id number] [place] [address]- 2251 Jun, 2014 [facility] [place] [facility] [address] [id number] [place] [address]- 6677 Jun, 2014 [facility] [place] [facility] [address] [id number] [place] [address]- 5379 Jun, 2014 [facility] [place] [facility] [address] [id number] [place] [address]- 9395 Jun, 2014 [facility] [place] [facility] [address] [id number] [place] [address]- 7626 Jun, 2014 [facility] [place] [facility] [address] [id number] [place] [address]- 3503 Jun, [facility] [place] [facility] [address] [id number] [place] [address]- 3439 Jun, [facility] [place] [facility] [address] [id number] [place] [address]- 8685 Jun, [facility] [place] [facility] [address] [id number] [place] [address]- 1411 Jun, [facility] [place] [facility] [address] [id number] [place] [address]- 1097 Jun, [facility] [place] [facility] [address] [id number] [place] [address]- 7313 Jun, [facility] [place] [facility] [address] [id number] [place] [address]- 8519 Jun, [facility] [address] [facility] [id number] [place] [address]- 3909 Jun, [facility] [address] [id number] [place] [address]- 0217 Jun, [facility] [place] [facility] [address] [id number] [place] [address]- 8008 May, [facility] [address] [facility] [id number] [place] [address]- 1203 May, [facility] [place] [facility] [address] [id number], [place] [address]- 6435 May, 2014 [facility] [address] [id number], [place] [address]- 2987 May, 2014 [facility] [address] [id number] [place] [address]- 6833 May, [facility] [place] [facility] [address] [id number] [place] [address]- 1292 May, [facility] [facility] [address] [facility] [id number] [place] [address]- 0805 May, [facility] [facility] [address] [id number] [place] [address]- 9298 May, 2014 [facility] [facility] [address] [id number] [place] [address]- 1186 May, 2014 [facility] [address] [facility] [id number] [place] [address]- 2546 May, 2014 [facility] [address] [facility] [id number] [place] [address]- 5882 18 May, 2014 [facility] [address] [id number] [place] [address]- 2545 18 May, 2014 [facility] [address] [facility] [id number] [place] [address]- 7736 13 May, 2014 [facility] [address] [facility] [id number] [place] [address]- 2262 13 May, 2014 [facility] [address] [facility] [id number] [place] [address]- 8639 May, 2014 [facility] [address] [facility] [id number] [place] [address]- 5270 May, 2014 [facility] [address] [facility] [id number] [place] [address]- 4770 May, 2014 [facility] [address] [facility] [id number] [place] [address]- 4819 May, 2014 [facility] [address] [facility] [id number], [place] [address]- 0488 May, 2014 [facility] [address] [facility] [id number] [place] [address]- 2544 May, 2014 [facility] [address] [facility] [id number] [place] [address]- 4968 May, 2014 [facility] [address] [facility] [id number] [place] [address]- 9406 May, 2014 [facility] [address] [facility] [id number] [place] [address]- 4380 May, [facility] [address] [id number] [place] [address]- 6276 May, [facility] [address] [id number] [place] May, [facility] [address] [id number] [place] [address]- 5746 May, [facility] [address] [id number] [place] [address]- 3193 May, [facility] [address] [id number] [place] [address]- 4668 Apr, [facility] [address] [id number] [place] [address]- 5145 Apr, [facility] [address] [id number] [place] [address]- 1092 Apr, [facility] [address] [id number] [place] [address]- 1181 Apr, [facility] [address] [id number] [place] [address]- 0685 Apr, [facility] [address] [id number] [place] [address]- 9575 Apr, [facility] [address] [id number] [place] [address]- 6524 Apr, [facility] [address] [id number] [place] [address]- 7871 Apr, [facility] [address] [id number] [place] [address]- 8755 Apr, [facility] [address] [id number] [place] [address]- 9268 Apr, [facility] [address] [id number] [place] [address]- 9619 Apr, [facility] [address] [id number] [place] [address]- 3859 Apr, [facility] [address] [id number] [place] [address]- 6664 Apr, [facility] [address] [id number] [place] [address]- 3438 Apr, [facility] [address] [id number] [place] [address]- 1061 Apr, [facility] [address] [id number] [place] [address]- 2137 Apr, [facility] [address] [id number] [place] [address]- 6366 Apr, [facility] [address] [id number] [place] [address]- 4962 Apr, [facility] [address] [id number] [place] [address]- 5881 Apr, [facility] [address] [id number] [place] [address]- 0801 Apr, [facility] [address] [id number] [place] [address]- 6082 Mar, [facility] [address] [id number] [place] [address]- 6109 Mar, [facility] [address] [id number] [place] [address]- 7793 Mar, [facility] [address] [id number] [place] [address]- 9098 Mar, [facility] [address] [id number] [place] [address]- 7935 Mar, [facility] [address] [id number] [place] [address] Mar, [facility] [address] [id number] [place] [address]- 5796 18 Mar, 2014 [facility] [address] [id number] [place] [address]- 3031 18 Mar, 2014 [facility] [address] [id number] [place] [address]- 5136 15 Mar, 2014 [facility] [address] [id number] [place] [address]- 1726 15 Mar, 2014 [facility] [address] [id number] [place] [address]- 4285 15 Mar, 2014 [facility] [address] [id number] [place] [address]- 8176 15 Mar, 2014 [facility] [address] [id number] [place] [address]- 5579 Mar, [facility] [address] [id number] [place] [address]- 6761 Mar, [facility] [address] [id number] [place] [address]- 3801 Mar, [facility] [address] [id number] [place] [address]- 9370 Mar, [facility] [address] [id number] [place] [address]- 2597 Feb, [facility] [address] [id number] [place] [address]- 8732 Feb, [facility] [address] [id number] [place] [address]- 5988 Feb, [facility] [address] [id number] [place] [address]- 1727 Feb, [facility] [address] [id number] [place] [address]- 2815 Feb, [facility] [address] [id number] [place] [address]- 7746 Feb, [facility] [address] [id number] [place] [address]- 9029 19 Feb, 2014 [facility] [address] [id number] [place] [address]- 0837 18 Feb, 2014 [facility] [address] [id number] [place] [address]- 9743 18 Feb, 2014 [facility] [address] [id number] [place] [address]- 4770 17 Feb, 2014 [facility] [address] [id number] [place] [address]- 6653 17 Feb, 2014 [facility] [address] [id number] [place] [address]- 3907 17 Feb, 2014 [facility] [address] [id number] [place] [address]- 3074 17 Feb, 2014 [facility] [address] [id number] [place] [address]- 7909 14 Feb, 2014 [facility] [address] [id number] [place] [address]- 7737 14 Feb, 2014 [facility] [address] [id number] [place] [address]- 4587 14 Feb, 2014 [facility] [address] [id number] [place] [address]- 2384 14 Feb, 2014 [facility] [address] [id number] [place] [address]- 1570 10 Feb, 2014 [facility] [address] [id number] [place] [address]- 5690 10 Feb, 2014 [facility] [address] [id number] [place] [address]- 3953 04 Feb, 2014 [facility] [address] [id number] [place] [address]- 4899 04 Feb, 2014 [facility] [address] [id number] [place] [address]- 7965 Jan, 2013 [facility] [address] [id number] [place] [address]- 9337 30 Jan, 2013 [facility] [address] [id number] [place] [address]- 0190 30 Jan, 2013 [facility] [address] [id number] [place] [address]- 4092 Jan, [facility] [address] [id number] [place] [address]- 5234 Jan, [facility] [address] [id number] [place] [address]- 4865 Jan, [facility] [place] [facility] [address] [id number] [place] [address]- 0532 Jan, [facility] [address] [id number] [place] [address]- 8908 Jan, [facility] [address] [id number], [place] [address]- 6172 Jan, [facility] [address] [id number] [place] [address]- 0751 Jan, [facility] [address] [id number], [place] [address]- 7265 Jan, [facility] [address] [id number], [place] [address]- 0103 Jan, 2013 [facility] [address] [id number], [place] [address]- 1420 Jan, 2013 [facility] [address] [id number], [place] [address]- 6388 17 Jan, 2013 [facility] [address] [id number], [place] [address]- 0935 15 Jan, 2014 [facility] [address] [id number], [place] [address]- 0307 15 Jan, 2014 [facility] [facility] [address] [id number] [place] [address]- 0559 14 Jan, 2014 [facility] [facility] [address] [id number] [place] [address]- 4074 14 Jan, 2014 [facility] [place] [facility] [address] [id number] [place] [address]- 2318 13 Jan, 2014 [facility] [facility] [address] [id number] [place] [address]- 7530 13 Jan, 2014 [facility] [place] [facility] [address] [id number] [place] [address]- 8565 13 Jan, 2014 [facility] [place] [facility] [address] [id number] [place] [address]- 2377 13 Jan, 2014 [facility] [place] [facility] [address] [id number] [place] [address]- 8985 10 Jan, 2014 [facility] [place] [facility] [address] [id number] [place] [address]- 7238 02 Jan, 2014 [facility] [place] [facility] [address] [id number] [place] [address]- 1521 02 Jan, 2014 [facility] [place] [facility] [address] [id number] [place] [address]- 4626 25 Dec, 2013 [facility] [place] [facility] [address] [id number] [place] [address]- 1513 25 Sep, 2013 [facility] [place] [facility] [address] [id number] [place] [address]- 254 23 Sep, 2013 [facility] [place] [facility] [address] [id number] [place] [address]- 2549 23 Sep, 2013 [facility] [place] [facility] [address] [id number] [place] [address]- 2543 19 Sep, 2013 [facility] [place] [facility] [address] [id number] [place] [address]- 2543 19 Sep, 2013 [facility] [place] [facility] [address] [id number] [place] [address]- 1814 17 Sep, 2013 [facility] [place] [facility] [address] [id number] [place] [address]- 4016 17 Dec, 2013 [facility] [place] [facility] [address] [id number] [place] [address]- 5993 Dec, 2013 [facility] [place] [facility] [address] [id number] [place] [address]- 1440 Dec, 2013 [facility] [place] [facility] [address] [id number] [place] [address]- 8952 08 Dec, 2013 [facility] [place] [facility] [address] [id number] [place] [address]- 7077 08 Dec, 2013 [facility] [place] [facility] [address] [id number] [place] [address]- 3457 Dec, 2013 [facility] [place] [facility] [address] [id number] [place] [address]- 1461 Dec, 2013 [facility] [place] [facility] [address] [id number] [place] [address]- 9265 Dec, 2013 [facility] [place] [facility] [address] [id number] [place] [address]- 5712 Dec, 2013 [facility] [place] [facility] [address] [id number] [place] [address]- 6650 Dec, 2013 [facility] [place] [facility] [address] [id number] [place] [address]- 4552 Dec, 2013 [facility] [place] [facility] [address] [id number] [place] [address]- 9385 Nov, [facility] [place] [facility] [address] [id number] [place] [address]- 8874 Nov, [facility] [place] [facility] [address] [id number] [place] [address]- 3168 Nov, [facility] [place] [facility] [address] [id number] [place] [address]- 6646 Nov, [facility] [place] [facility] [address] [id number] [place] [address]- 2367 Nov, [facility] [place] [facility] [address] [id number] [place] [address]- 8955 Nov, [facility] [place] [facility] [address] [id number] [place] [address]- 8750 Nov, [facility] [place] [facility] [address] [id number] [place] [address]- 8208 Nov, [facility] [place] [facility] [address] [id number] [place] [address]- 5955 Nov, [facility] [place] [facility] [address] [id number] [place] [address]- 1437 Nov, [facility] [place] [facility] [address] [id number] [place] [address]- 6977 Nov, [facility] [place] [facility] [address] [id number] [place] [address]- 3117 Nov, [facility] [place] [facility] [address] [id number] [place] [address]- 8787 Oct, [facility] [place] [facility] [address] [id number] [place] [address]- 7866 Oct, [facility] [place] [facility] [address] [id number] [place] [address]- 4913 Oct, [facility] [place] [facility] [address] [id number] [place] [address]- 5038 Oct, [facility] [place] [facility] [address] [id number] [place] [address]- 3414 Oct, [facility] [place] [facility] [address] [id number] [place] [address]- 4421 Oct, [facility] [place] [facility] [address] [id number] [place] [address]- 7771 Oct, [facility] [place] [facility] [address] [id number] [place] [address]- 1891 Oct, [facility] [place] [facility] [address] [id number] [place] [address]- 6330 22 Oct, 2013 [facility] [place] [facility] [address] [id number] [place] [address]- 6932 22 Oct, 2013 [facility] [place] [facility] [address] [id number] [place] [address]- 1777 16 Oct, 2013 [facility] [place] [facility] [address] [id number] [place] [address] 16 Oct, 2013 [facility] [place] [facility] [address] [id number] [place] [address] 14 Oct, 2013 [facility] [place] [facility] [address] [id number] [place] [address] 14 Oct, 2013 [facility] [place] [facility] [address] [id number] [place] [address] 13 Oct, 2013 [facility] [place] [facility] [address] [id number] [place] [address] 13 Oct, 2013 [facility] [place] [facility] [address] [id number] [place] [address] 2013 [facility] [place] [facility] [address] [id number] [place] [address] 27 Sep, 2013 [facility] [place] [facility] [address] [id number] [place] [address] 27 Sep, 2013 [facility] [place] [facility] [address] [id number] [place] [address] 20 Sep, 2013 [facility] [place] [facility] [address] [id number] [place] [address] 20 Sep, 2013 [facility] [place] [facility] [address] [id number] [place] [address]- [address] 18 Sep, 2013 [facility] [place] [facility] [address] [id number] [place] [address]99 18 Sep, 2013 [facility] [place] [facility] [address] [id number] [place] [address] Sep, [facility] [place] [facility] [address] [id number] [place] [address] 9901 17 Sep, 2013 [facility] [place] [facility] [address] [id number] [place] [address] 4[address] Sep, [facility] [place] [facility] [address] [id number] [place] [address] 79[address] Sep, [facility] [place] [facility] [address] [id number] [place] [address]- [address] Sep, [facility] [place] [facility] [address] [id number] [place] [address]161 Sep, [facility] [place] [facility] [address] [id number] [place] [address] Sep, [facility] [place] [facility] [address] [id number] [place] [address] 86[address] Sep, [facility] [place] [facility] [address] [id number] [place] [address]- 5[address] Sep, [facility] [place] [facility] [address] [id number] [place] [address] 4437 Sep, [facility] [place] [facility] [address] [id number] [place] [address]- 234[address] Sep, [facility] [place] [facility] [address] [id number] [place] [address] Sep, [facility] [place] [facility] [address] [id number] [place] [address] 8546 Sep, [facility] [place] [facility] [address] [id number] [place] [address] 0178 Sep, [facility] [place] [facility] [address] [id number] [place] [address] 1761 Sep, [facility] [place] [facility] [address] [id number] [place] [address]- 9176 Sep, [facility] [place] [facility] [address] [id number] [place] [address] August, [facility] [address] [id number] [place] [address] August, [facility] [place] [facility] [address] [id number] [place] [address] August, [facility] [address] [id number] [place] [address] August, [facility] [place] [facility] [address] [id number] [place] [address]- 8385 August, [facility] [address] [id number] [place] [address]200 August, [facility] [place] [facility] [address] [id number] [place] [address] August, [facility] [address] [id number] [place] [address] August, [facility] [address] [id number] [place] [address] August, [facility] [address] [id number] [place] [address] August, [facility] [place] [facility] [address] [id number] [place] [address]- 29[address] August, [facility] [place] [facility] [address] [id number] [place] [address]- [address] Jul, [facility] [place] [facility] [address] [id number] [place] [address] 4[address] Jul, [facility] [place] [facility] [address] [id number] [place] [address]- 6851 Jul, [facility] [place] [facility] [address] [id number] [place] [address]- 3643 Jul, [facility] [place] [facility] [address] [id number] [place] [address]- 2760 Jul, [facility] [place] [facility] [address] [id number] [place] [address]- 6[address] 23 Jul, 2013 [facility] [place] [facility] [address] [id number] [place] [address]- 1182 Jul, [facility] [place] [facility] [address] [id number] [place] [address]- 7290 Jul, [facility] [place] [facility] [address] [id number] [place] [address]- 4075 18 Jul, 2013 [facility] [place] [facility] [address] [id number] [place] [address]- 1102 18 Jul, 2013 [facility] [place] [facility] [address] [id number] [place] [address]- 3823 16 Jul, 2013 [facility] [place] [facility] [address] [id number] [place] [address]- 0610 14 Jul, 2013 [facility] [place] [facility] [address] [id number] [place] [address]- 0350 14 Jul, 2013 [facility] [place] [facility] [address] [id number] [place] [address]- 0398 Jul, [facility] [place] [facility] [address] [id number] [place] [address]- 5120 11 Jul, 2013 [facility] [place] [facility] [address] [id number] [place] [address]- 7108 10 Jul, 2013 [facility] [place] [facility] [address] [id number] [place] [address]- 7416 10 Jul, 2013 [facility] [place] [facility] [address] [id number] [place] [address]- 5451 05 Jul, 2013 [facility] [place] [facility] [address] [id number] [place] [address]- 7900 05 Jul, 2013 [facility] [place] [facility] [address] [id number] [place] [address]- 5134 02 Jul, 2013 [facility] [place] [facility] [address] [id number] [place] [address]- 1275 Jul, [facility] [place] [facility] [address] [id number] [place] [address]- 3655 Jul, [facility] [place] [facility] [address] [id number] [place] [address]- 7656 Jul, [facility] [place] [facility] [address] [id number] [place] [address]- 1611 Jun, [facility] [place] [facility] [address] [id number] [place] [address]- 6916 Jun, [facility] [place] [facility] [address] [id number] [place] [address]- 6625 Jun, [facility] [place] [facility] [address] [id number] [place] [address]- 3989 Jun, [facility] [place] [facility] [address] [id number] [place] [address]- 2091 Jun, [facility] [place] [facility] [address] [id number] [place] [address]- 5495 Jun, [facility] [place] [facility] [address] [id number] [place] [address]- 4110 Jun, [facility] [place] [facility] [address] [id number] [place] [address]- 3374 Jun, [facility] [place] [facility] [address] [id number] [place] [address]- 4150 Jun, [facility] [place] [facility] [address] [id number], [place] [address] Jun, [facility] [place] [facility] [address] [id number] [place] [address] Jun, [facility] [place] [facility] [address] [id number] [place] [address] 9468 Jun, [facility] [place] [facility] [address] [id number] [place] [address] 18 May, 2013 [facility] [place] [facility] [address] [id number] [place] [address] May, [facility] [address] [id number] [place] [address] Apr, [facility] [address] [id number] [place] [address]- [address] Apr, [facility] [address] [id number] [place] [address] 4[address] Apr, [facility] [address] [id number] [place] [address] 3344 Apr, [facility] [address] [id number] [place] [address]- 6017 Apr, [facility] [address] [id number] [place] [address] 3749 Apr, [facility] [address] [id number] [place] [address] Apr, [facility] [address] [id number] [place] [address] 8880 Apr, [facility] [address] [id number] [place] [address] 65[address] Apr, [facility] [address] [id number] [place] [address] 8446 Apr, [facility] [address] [id number] [place] [address]- 5061 Apr, [facility] [address] [id number] [place] [address]- 2858 Mar, [facility] [place] [facility] [address] [id number] [place] [address]- 3[address] Mar, [facility] [address] [id number] [place] [address] 7699 Mar, [facility] [address] [id number] [place] [address]- 8047 Mar, [facility] [place] [facility] [address] [id number] [place] [address]- 7326 Feb, [facility] [place] [facility] [address] [id number] [place] [address]- 7199 Feb, [facility] [place] [facility] [address] [id number], [place] [address] 5071 Feb, [facility] [place] [facility] [address] [id number], [place] [address] 2824 Feb, [facility] [place] [facility] [address] [id number] [place] [address]- 0075 Feb, [facility] [place] [facility] [address] [id number], [place] [address]- 7257 Feb, [facility] [place] [facility] [address] [id number], [place] [address] 5134 Feb, [facility] [place] [facility] [address] [id number], [place] [address] 6297 Feb, [facility] [place] [facility] [address] [id number], [place] [address]- 4[address] Feb, [facility] [place] [facility] [address] [facility] [id number], [place] [address]- [address] Feb, [facility] [place] [facility] [address] [id number], [place] [address]- 3809 Feb, [facility] [place] [facility] [address] [id number], [place] [address]- 3057 Jan, [facility] [place] [facility] [address] [id number], [place] [address]- 5994 Jan, [facility] [place] [facility] [address] [id number], [place] [address]- 3085 Jan, [facility] [place] [facility] [address] [facility] [id number], [place] [address]- 3237 Jan, [facility] [place] [facility] [address] [id number], [place] [address]- 2686 10 Jan, 2013 [facility] [address] [id number] [place] [address] 3160 10 Jan, 2013 [facility] [place] [facility] [address] [id number] [place] [address]- 6259 03 Jan, 2013 [facility] [place] [facility] [address] [id number] [place] [address]- 1431 02 Jan, 2013 [facility] [place] [facility] [address] [id number] [place] [address]- 5513 30 Dec, 2012 [facility] [place] [facility] [address] [id number] [place] [address]- 9420 25 Dec, 2012 [facility] [place] [facility] [address] [id number] [place] [address]- 9926 18 Dec, 2012 [facility] [place] [facility] [address] [id number] [place] [address]- 6728 17 Dec, 2012 [facility] [place] [facility] [address] [id number] [place] [address]- 6260 17 Dec, 2012 [facility] [place] [facility] [address] [id number] [place] [address]- 2460 16 Dec, 2012 [facility] [place] [facility] [address] [id number] [place] [address]- 2508 13 Dec, 2012 [facility] [place] [facility] [address] [id number] [place] [address]- 7680 11 Dec, 2012 [facility] [place] [facility] [address] [id number] [place] [address]- 2547 05 Dec, 2012 [facility] [place] [facility] [address] [id number] [place] [address]- 1721 04 Dec, 2012 [facility] [place] [facility] [address] [id number] [place] [address]- 6398 30 Nov, 2012 [facility] [place] [facility] [address] [id number] [place] [address]- 3942 29 Nov, 2012 [facility] [place] [facility] [address] [id number] [place] [address]- 7702 22 Nov, 2012 [facility] [place] [facility] [address] [id number] [place] [address]- 2314 16 Nov, 2012 [facility] [place] [facility] [address] [id number] [place] [address]- 6006 14 Nov, 2012 [facility] [place] [facility] [address] [id number] [place] [address]- 1158 Nov, [facility] [place] [facility] [address] [id number] [place] [address]- 2761 05 Nov, 2012 [facility] [place] [facility] [address] [id number] [place] [address]- 2533 Oct, [facility] [place] [facility] [address] [id number] [place] [address]- 3142 Oct, [facility] [place] [facility] [address] [id number] [place] [address]- 5641 Oct, [facility] [place] [facility] [address] [id number] [place] [address]- 8017 Oct, [facility] [place] [facility] [address] [id number] [place] [address]- 9587 Oct, [facility] [place] [facility] [address] [id number] [place] [address]- 6606 Oct, [facility] [place] [facility] [address] [id number] [place] [address]- 8046 Sep, [facility] [place] [facility] [address] [id number] [place] [address]- 6627 28 Sep, 2012 [facility] [place] [facility] [address] [id number] [place] [address]- 4810 27 Sep, 2012 [facility] [place] [facility] [address] [id number] [place] [address]- 3178 14 Sep, 2012 [facility] [place] [facility] [address] [id number] [place] [address]- 1049 Sep, [facility] [address] [id number] [place] [address]- 6292 Sep, [facility] [address] [id number] [place] [address]- 0621 Sep, [facility] [address] [id number] [place] [address]- 2605 Sep, [facility] [address] [id number] [place] [address]- 0630 Sep, [facility] [address] [id number] [place] [address]- 6096 August, [facility] [address] [id number] [place] [address]- 6350 August, [facility] [address] [id number] [place] [address]- 8105 August, [facility] [address] [id number] [place] [address]- 8224 August, [facility] [address] [id number] [place] [address]- 4191 August, [facility] [address] [id number] [place] [address]- 5644 August, [facility] [address] [id number] [place] [address]- 2707 August, [facility] [address] [id number] [place] [address]- 4287 August, [facility] [address] [id number] [place] [address]- 5532 Jul, [facility] [address] [id number] [place] [address]- 8862 Jul, [facility] [address] [place] [id number] Jul [facility] [address] [id number] [place] [address]- 2756 Jun, [facility] [address] [id number] [place] [address]- 7008 Jun, [facility] [address] [id number] [place] [address]- 8076 Jun, [facility] [address] [facility] [id number] [place] [address]- 8603 Jun, [facility] [address] [id number] [place] [address]- 4902 Jun, [facility] [address] [id number] [place] [address]- 8517 Jun, [facility] [address] [id number] [place] [address]- 9378 May, [facility] [address] [facility] [id number] [place] [address]- 9376 May, [facility] [address] [id number] [place] [address]- 3422 May, [facility] [address] [id number] [place] [address]- 1278 May, [facility] [address] [facility] [id number] [place] [address]- 3512 May, [facility] [address] [id number], [place] [address]- 6876 Apr, [facility] [place] [facility] [address] [id number], [place] [address]- 7509 Apr, [facility] [place] [facility] [address] [id number] [place] [address]- 6825 Apr, [facility] [place] [facility] [address] [id number], [place] [address]- 0606 Apr, [facility] [place] [facility] [address] [facility] [id number], [place] [address]- 1474 Apr, [facility] [place] [facility] [address] [id number] [place] [address]- 6611 Apr, [facility] [place] [facility] [address] [id number] [place] [address]- 0376 Mar, [facility] [place] [facility] [address] [id number] [place] [address] 2546 Mar, [facility] [place] [facility] [address] [id number] [place] [address]- 0226 Mar, [facility] [place] [facility] [address] [id number] [place] [address]- 6138 Mar, [facility] [place] [facility] [address] [id number] [place] [address]- 6576 Mar, [facility] [place] [facility] [address] [id number] [place] [address]- 6753 Mar, [facility] [place] [facility] [address] [id number] [place] [address]- 9617 Mar, [facility] [place] [facility] [address] [id number] [place] [address]- 2787 Mar, [facility] [place] [facility] [address] [id number] [place] [address]- 8410 Mar, [facility] [place] [facility] [address] [id number] [place] Mar, [facility] [place] [facility] [address] [id number] [place] [address]- 6912 Mar, [facility] [place] [facility] [address] [id number] [place] [address]- 5862 Feb, [facility] [place] [facility] [address] [id number] [place] [address]- 2796 Feb, [facility] [place] [facility] [address] [id number] [place] [address]- 1086 Feb, [facility] [place] [facility] [address] [id number] [place] [address]- 7490 Feb, [facility] [place] [facility] [address] [id number] [place] [address]- 0189 Feb, [facility] [place] [facility] [address] [id number] [place] [address]- 6708 Feb, [facility] [place] [facility] [address] [facility] [id number] [place] Feb, [facility] [place] [facility] [address] [id number] [place] [address], [place] [address]- 8265 Feb, [facility] [place] [facility] [address] [id number] [place] [address]- 2395 Feb, [facility] [place] [facility] [address] [id number] [place] [address], [place] [address]- 9920 Feb, [facility] [place] [facility] [address] [facility] [id number] [place] [address]- 2871 Feb, [facility] [place] [facility] [address] [id number], [place] [address]- 4457 Jan, [facility] [place] [facility] [address] [id number], [place] [address]- 0641 Jan, [facility] [place] [facility] [address] [facility] [id number], [place] [address]- 4131 Jan, [facility] [place] [facility] [address] [id number], [place] [address]- 5268 Jan, [facility] [place] [facility] [address] [id number], [place] [address]- 6889 Jan, [facility] [place] [facility] [address] [id number], [place] [address]- 4066 Jan, [facility] [place] [facility] [address] [facility] [id number], [place] [address]- 7717 Jan, [facility] [place] [facility] [address] [facility] [id number], [place] [address]- 7779 24 Dec, 2011 [facility] [place] [facility] [address] [id number] [place] [address]- 1472 17 Dec, 2011 [facility] [place] [facility] [address] [id number] [place] [address]- 9396 13 Dec, 2011 [facility] [place] [facility] [address] [id number] [place] [address]- 4506 12 Dec, 2011 [facility] [place] [facility] [address] [id number] [place] [address]- 5266 23 Nov, 2011 [facility] [place] [facility] [address] [id number] [place] [address] 2546 20 Nov, 2011 [facility] [place] [facility] [address] [id number] [place] [address]- 3756 17 Nov, 2011 [facility] [place] [facility] [address] [id number] [place] [address]- 8588 15 Nov, 2011 [facility] [place] [facility] [address] [id number] [place] [address]- 7069 14 Nov, 2011 [facility] [place] [facility] [address] [id number] [place] [address]- 7093 Nov, [facility] [place] [facility] [address] [id number] [place] [address]- 6326 Nov, [facility] [place] [facility] [address] [id number] [place] [address]- 2017 Nov, [facility] [place] [facility] [address] [id number] [place] [address]- 1556 Nov, [facility] [place] [facility] [address] [id number] [place] [address]- 2542 Nov, [facility] [place] [facility] [address] [id number] [place] [address]- 7954 Nov, [facility] [place] [facility] [address] [id number] [place] [address]- 2696 Nov, [facility] [place] [facility] [address] [id number] [place] [address]- 4006 Nov, [facility] [place] [facility] [address] [id number] [place] [address]- 8511 Oct, [facility] [place] [facility] [address] [id number] [place] [address]- 3638 Oct, [facility] [place] [facility] [address] [id number] [place] [address]- 7465 Oct, [facility] [place] [facility] [address] [id number] [place] [address]- 5181 Oct, [facility] [place] [facility] [address] [id number] [place] [address]- 7941 Oct, [facility] [place] [facility] [address] [id number] [place] [address]- 5046 Oct, [facility] [place] [facility] [address] [id number] [place] [address]- 4319 Oct, [facility] [place] [facility] [address] [id number] [place] [address]- 2304 Oct, [facility] [place] [facility] [address] [id number] [place] [address]- 0689 Oct, [facility] [place] [facility] [address] [id number] [place] [address]- 0103 Sep, [facility] [place] [facility] [address] [id number] [place] [address]- 8979 Sep, [facility] [place] [facility] [address] [id number] [place] [address]- 0980 Sep, [facility] [place] [facility] [address] [id number] [place] [address]- 4119 Sep, [facility] [place] [facility] [address] [id number] [place] [address]- 9091 Sep, [facility] [place] [facility] [address] [id number] [place] [address]- 0185 Sep, [facility] [place] [facility] [address] [id number], [place] [address]- 2546 Sep, [facility] [address] [id number], [place] [address]- 6250 Sep, [facility] [id number], [place] [address]- 3246 August, [facility] [id number], [place] [address]- 0786 August, [facility] [address] [id number], [place] [address]- 0659 August, [facility] [address] [id number], [place] [address]- 7249 August, [facility] [address] [id number], [place] [address]- 2969 August, [facility] [id number], [place] [address]- 5246 August, [facility] [id number], [place] [address]- 5029 August, [facility] [id number], [place] [address]- 8316 August, [facility] [id number], [place] [address]- 7566 August, [facility] [id number], [place] [address]- 5457 August, [facility] [address] [id number], [place] [address]- 2415 August, [facility] [address] [id number] 2735 August, [facility] [id number] 2446 Oct, IMMUNIZATIONS No Known Immunizations SOCIAL HISTORY [...] Surgical History bladder surgery Hospitalization History Via [facility] for right groin pain 05/2011 Hospitalization History Via [facility] for wound on buttocks 08/2012 Hospitalization History Via [facility], hypoxia secondary to pneumonia 12/02-12/09 Hospitalization History Pneumonia, elevated CO2 on Bipap was in ICU 08/2013 Hospitalization History Hypoxia, Exacerbation COPD, Chest pain 09/05/15 Hospitalization History suicidal ideations-[place] 12/28 Hospitalization History hypoxia--[facility] 02/13/2016 Hospitalization History shortness of breath at june 2016 Hospitalization History Shortness of breath at august 2016 Hospitalization History SOB, chest pain at 12/2016
--- OUTSIDE RECORDS SUMMARY | 2017-11-24 18:29 | XMS REPORT ---
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 [place] [address] 71384- 2495 Apr, [facility] [id number] [place] [address] 70509- 2665 Apr, [facility] [id number] [place] [address] 19210- 5434 Apr, Dysuria R30.0 and Well woman exam (no gynecological exam) Z00.00 [place] [id number] [place] [address] 43399- 9393 Mar, [facility] [id number] [place] [address] 88477- 1556 Mar, [facility] [id number] [place] [address] [id number] Mar, Dental examination Z01.20 [facility] [id number] [place] [address] 15322- 7397 Mar, Chronic diarrhea K52.9 ; Intractable vomiting with nausea, vomiting of unspecified type R11.2 ; Cellulitis, unspecified cellulitis site L03.90 ; Type 2 diabetes mellitus with diabetic polyneuropathy E11.42 and Postinflammatory hyperpigmentation L81.0 [facility] [id number] [place] [address] 55956- 7847 Mar, Unspecified mood [affective] disorder F39 [facility] [address] [facility] [id number] [address]- 2858 Mar, Unspecified mood [affective] disorder F39 [facility] [address] [facility] [id number] [address]- 9070 Mar, [facility] [address] [facility] [id number] [address]- 5[address] Mar, [facility] [address] [facility] [id number], [place] [address]- 7665 Mar, [facility] [address] [facility] [id number] [address]- 0368 Mar, [facility] [address] [facility] [id number] [address]- 0353 Mar, [facility] [id number], [place] [address]- 8989 Mar, [facility] [address] [facility] [id number] [address]- 6352 Feb, Unspecified mood [affective] disorder F39 [facility] [address] [facility] [id number], [place] [address]- 9607 Feb, [facility] [id number] [address]- 8088 Feb, [facility] [id number] [address]- 5089 Jan, Unspecified mood [affective] disorder F39 [facility] [address] [id number] [id number] Jan, Encounter for dental examination Z01.20 [facility] [id number] [address]- 9096 Jan, [facility] [id number] [address]- 6258 Jan, [facility] [id number] [place] [address] 15473- 8502 Jan, [facility] [id number] [place] [address] 98150- 4939 Jan, [facility] [id number] [place] [address] 89834- 0265 Jan, [facility] [address] 75860- 8881 Jan, Abdominal abscess K65.1 and Dental caries K02.9 [facility] [address] 41984- 1892 Jan, [facility] [address] 41844- 9100 30 Dec, 2014 Diabetes with neurological manifestations, type II or unspecified type, not stated as uncontrolled 250.60 ; Essential hypertension, benign 401.1 ; Concussion 850.9 and Skin texture changes 782.8 [facility] [id number] [place] [address] 74588- 0108 Dec, [facility] [id number] [place] [address] 62106- 0025 24 Dec, 2014 [facility] [id number] [place] [address] 52158- 6796 22 Dec, 2014 [facility] [id number] [place] [address] 01960- 4956 21 Dec, 2014 [facility] [id number] [place] [address] 63922- 0710 17 Dec, [address] [facility] [id number] [place] [address] 54544- 6712 14 Dec, 2014 [facility] [id number] [place] [address] 78491- 6818 10 Dec, [address] [facility] [id number] [place] [address] 71988- 0061 Dec, 2014 [facility] [id number] [address]- 4966 Dec, 2014 [facility] [address], [place] [address] 2546 Dec, 2014 [facility] [address], [place] [address] 2546 Dec, 2014 [facility] [id number] [place] [address] 11210 2546 Nov, Affective disorder 296.90 [facility] [address], [place] [address] 2546 Nov, [facility] [address] [place] [address] 06528- 3677 Nov, Affective disorder 296.90 [facility] [address], [place] [address]- 5616 Nov, Diarrhea 787.91 [facility] [address], [place] [address] 2546 Nov, [facility] [address], [place] [address] 2549 Nov, Diarrhea 787.91 [facility] [address], [place] [address] 2546 Nov, Diarrhea 787.[address] [facility] [address], [place] [address] 2546 Nov, Diarrhea 787.91 [facility] [id number] [address] 2546 Nov, Affective disorder 296.90 [facility] [address], [place] [address]- 2546 Nov, Affective disorder 296.90 [facility] [id number] [address]- 1916 Nov, Affective disorder 296.90 [facility] [address], [place] [address]- 1611 14 Nov, 2014 [facility] [address], [place] [address]- 3721 Nov, [facility] [address], [place] [address]- 1493 Nov, [facility] [id number] [place] [address] 67967- 6947 Nov, Episodic mood disorder 296.90 [facility] [address], [place] [address]- 9059 Nov, [facility] [id number] [place] [address] 06234- 8403 Nov, [facility] [address], [place] [address]- 4711 Nov, [facility] [address], [place] [address]- 6445 Nov, [facility] [address], [place] [address]- 8961 Nov, [facility] [address], [place] [address]- 1819 Nov, Lymphedema 457.1 ; Hyperlipidemia 272.4 ; Essential hypertension, benign 401.1 and Numbness of toes 782.0 [facility] [address], [place] [address]- 1409 Nov, Episodic mood disorder 296.90 [facility] [address], [place] [address]- 6733 Oct, [facility] [address], [place] [address]- 8839 Oct, [facility] [address], [place] [address]- 6566 Oct, [facility] [address] [id number] [place] [address]- 6742 15 Oct, 2014 [facility] [address] [facility] [id number] [place] [address]- 6774 14 Oct, 2014 [facility] [place] [facility] [address] [facility] [id number] [place] [address]- 2934 Oct, 2014 [facility] [address] [facility] [id number] [place] [address]- 6841 Oct, 2014 [facility] [place] [facility] [address] [facility] [id number] [place] [address]- 2072 Oct, 2014 [facility] [address] [facility] [id number] [place] [address]- 5484 Oct, Episodic mood disorder 296.90 [facility] [id number] [place] [address]- 3201 Sep, [facility] [address] [place] [address]- 2910 Sep, [facility] [address] [facility] [id number] [place] [address]- 8049 Sep, [facility] [place] [facility] [id number] [place] [address]- 2127 Sep, [facility] [id number] [place] [address]- 4539 Sep, [facility] [id number], [place] [address]- 9949 Sep, Episodic mood disorder 296.90 [facility] [address] [facility] [id number] [place] [address]- 3566 Sep, Unspecified episodic mood disorder 296.90 [facility] [place] [facility] [address] [id number]- 4916 Sep, [facility] [place] [facility] [id number] [place] [address]- 0486 Sep, [facility] [place] [facility] [address], [place] [address]- 5208 Sep, Episodic mood disorder 296.90 [facility] [id number] [place] [address] 64301- 7897 Sep, [facility] [address], [place] [address]- 7295 Sep, [facility] [id number] [place] [address] 43306- 3265 Sep, [facility] [id number] [place] [address] 87748- 5580 Sep, Hematemesis 578.[address] [facility] [id number] [place] [address] 88941- 1338 Sep, Episodic mood disorder 296.90 [facility] [id number] [place] [address] 65352- 2301 Sep, [facility] [id number] [place] [address] 66390- 5427 Sep, [facility] [address] [place] [address] 03718- 6631 Sep, Diabetes mellitus without mention of complication, type II or unspecified type, not stated as uncontrolled 250.00 and Other chronic pain 338.29 [facility] [address], [place] [address]- 0042 Sep, Episodic mood disorder 296.90 [facility] [address], [place] [address]- 2779 Sep, [facility] [address] [place] [address] 72187- 9146 Sep, Episodic mood disorder 296.90 [facility] [address] [address]- 6023 Sep, [facility] [id number] [place] [address] 76915- 6450 August, [facility] [address] [facility] [id number] [place] [address]- 9480 August, [facility] [address] [facility] [id number] [place] [address]- 9996 August, Episodic mood disorder 296.90 [facility] [id number] [place] [address]- 7086 August, [facility] [address] [id number] [place] [address]- 0815 August, Unspecified episodic mood disorder 296.90 [facility] [id number] [place] [address]- 2178 August, Vomiting 787.03 [facility] [id number] [place] [address]- 5916 August, [facility] [address] [place] [address]- 1116 August, [facility] [id number] [place] [address]- [address] August, [facility] [address] [place] [address]- 97[address] August, [facility] [id number] [place] [address]- [address] August, [facility] [id number] [place] [address]- 3986 Jul, [facility] [address] [facility] [id number] [place] [address]- [address] Jul, [facility] [address] [facility] [id number] [place] [address]- [address] Jul, [facility] [address] [facility] [id number] [place] [address]- 0526 Jun, [facility] [id number] [place] [address]- 3366 Jun, [facility] [place] [facility] [address] [id number] [place] [address]- 2133 30 Jun, 2014 [facility] [place] [facility] [address] [id number] [place] [address]- 1750 Jun, [facility] [place] [facility] [address] [id number] [place] [address]- 6134 Jun, [facility] [place] [facility] [address] [id number] [place] [address]- 9632 Jun, [facility] [place] [facility] [address] [id number] [place] [address]- 8997 Jun, [facility] [place] [facility] [address] [id number] [place] [address]- 5875 Jun, [facility] [place] [facility] [address] [id number] [place] [address]- 1928 Jun, [facility] [place] [facility] [address] [id number] [place] [address]- 3897 Jun, [facility] [place] [facility] [address] [id number] [place] [address] Jun, [facility] [place] [facility] [address] [id number] [place] [address] Jun, [facility] [place] [facility] [address] [id number] [place] [address] Jun, [facility] [place] [facility] [address] [id number] [place] [address] Jun, [facility] [place] [facility] [address] [id number] [place] [address] Jun, [facility] [place] [facility] [address] [id number] [place] [address] Jun, [facility] [place] [facility] [address] [id number] [place] [address] Jun, [facility] [place] [facility] [address] [id number] [place] [address] 23 Jun, 2014 [facility] [place] [facility] [address] [id number] [place] [address] 23 Jun, 2014 [facility] [place] [facility] [address] [id number] [place] [address] 21 Jun, 2014 [facility] [place] [facility] [address] [id number] [place] [address] 21 Jun, 2014 [facility] [place] [facility] [address] [id number] [place] [address] 20 Jun, 2014 [facility] [place] [facility] [address] [id number] [place] [address] 20 Jun, 2014 [facility] [place] [facility] [address] [id number] [place] [address] 20 Jun, 2014 [facility] [place] [facility] [address] [id number] [place] [address] 20 Jun, 2014 [facility] [place] [facility] [address] [id number] [place] [address] 19 Jun, 2014 [facility] [place] [facility] [address] [id number] [place] [address]- [address]69 19 Jun, 2014 [facility] [place] [facility] [address] [id number] [place] [address] 18 Jun, 2014 [facility] [place] [facility] [address] [id number] [place] [address] 18 Jun, 2014 [facility] [place] [facility] [address] [id number] [place] [address]- [address] 17 Jun, 2014 [facility] [place] [facility] [address] [id number] [place] [address] 17 Jun, 2014 [facility] [place] [facility] [address] [id number] [place] [address]- [address] 16 Jun, 2014 [facility] [place] [facility] [address] [id number] [place] [address]- [address] 16 Jun, 2014 [facility] [place] [facility] [address] [id number] [place] [address]- [address] 16 Jun, 2014 [facility] [place] [facility] [address] [id number] [place] [address]- [address] 16 Jun, 2014 [facility] [place] [facility] [address] [id number] [place] [address]- [address] 16 Jun, 2014 [facility] [place] [facility] [address] [id number] [place] [address]- [address] 16 Jun, 2014 [facility] [place] [facility] [address] [id number] [place] [address] 13 Jun, 2014 [facility] [place] [facility] [address] [id number] [place] [address]- [address] 13 Jun, 2014 [facility] [place] [facility] [address] [id number] [place] [address] Jun, 2014 [facility] [place] [facility] [address] [id number] [place] [address] Jun, 2014 [facility] [place] [facility] [address] [id number] [place] [address] Jun, [facility] [place] [facility] [address] [id number] [place] [address] Jun, 2014 [facility] [place] [facility] [address] [id number] [place] [address] Jun, 2014 [facility] [place] [facility] [address] [id number] [place] [address] Jun, 2014 [facility] [place] [facility] [address] [id number] [place] [address]- [address] Jun, 2014 [facility] [place] [facility] [address] [id number] [place] [address] Jun, 2014 [facility] [place] [facility] [address] [id number] [place] [address] Jun, 2014 [facility] [place] [facility] [address] [id number] [place] [address] Jun, [facility] [place] [facility] [address] [id number] [place] [address] Jun, [facility] [place] [facility] [address] [id number] [place] [address] Jun, [facility] [place] [facility] [address] [id number] [place] [address] Jun, [facility] [place] [facility] [address] [id number] [place] [address] Jun, [facility] [place] [facility] [address] [id number] [place] [address] 68[address] Jun, [facility] [place] [facility] [address] [id number] [place] [address] 4226 Jun, [facility] [place] [facility] [address] [facility] [id number] [place] [address] 5896 Jun, [facility] [place] [facility] [address] [id number] [place] [address] 5536 Jun, [facility] [place] [facility] [address] [id number] [place] [address]- 9246 May, [facility] [place] [facility] [address] [facility] [id number] [place] [address]- 4[address] May, [facility] [place] [facility] [address] [id number], [place] [address] May, 2014 [facility] [place] [facility] [address] [id number], [place] [address]- 96[address] May, 2014 [facility] [place] [facility] [address] [id number] [place] [address]- 6858 May, [facility] [place] [facility] [address] [id number] [place] [address]- 2587 May, [facility] [place] [facility] [address] [facility] [id number] [place] [address]- 2773 May, [facility] [place] [facility] [address] [id number] [place] [address]- 4012 May, 2014 [facility] [place] [facility] [address] [id number] [place] [address]- 3236 May, 2014 [facility] [place] [facility] [address] [facility] [id number] [place] [address]- 2546 May, 2014 [facility] [place] [facility] [address] [facility] [id number] [place] [address]- 2111 18 May, 2014 [facility] [place] [facility] [address] [id number] [place] [address]- 254 18 May, 2014 [facility] [place] [facility] [address] [facility] [id number] [place] [address]- 7926 13 May, 2014 [facility] [place] [facility] [address] [facility] [id number] [place] [address]- 8503 13 May, 2014 [facility] [place] [facility] [address] [facility] [id number] [place] [address]- 8675 May, 2014 [facility] [place] [facility] [address] [facility] [id number] [place] [address]- 0938 May, 2014 [facility] [place] [facility] [address] [facility] [id number] [place] [address]- 6355 May, 2014 [facility] [place] [facility] [address] [facility] [id number] [place] [address]- 1250 May, 2014 [facility] [place] [facility] [address] [facility] [id number][place] [address] 9839 May, 2014 [facility] [place] [facility] [address] [facility] [id number] [place] [address]- 2549 May, 2014 [facility] [place] [facility] [address] [facility] [id number] [place] [address]- 2270 May, 2014 [facility] [place] [facility] [address] [facility] [id number] [place] [address]- 7626 May, 2014 [facility] [place] [facility] [address] [facility] [id number] [place] [address]- 9809 May, [facility] [place] [facility] [address] [id number] [place] [address]- 3828 May, [facility] [place] [facility] [address] [id number] [place] [address] May, [facility] [place] [facility] [address] [id number] [place] [address]- 2486 May, [facility] [place] [facility] [address] [id number] [place] [address]- 8927 May, [facility] [place] [facility] [address] [id number] [place] [address]- 4057 Apr, [facility] [place] [facility] [address] [id number] [place] [address]- 2146 Apr, [facility] [place] [facility] [address] [id number] [place] [address]- 4777 Apr, [facility] [place] [facility] [address] [id number] [place] [address]- 7934 Apr, [facility] [place] [facility] [address] [id number] [place] [address]- 7362 Apr, [facility] [place] [facility] [address] [id number] [place] [address]- 6233 Apr, [facility] [place] [facility] [address] [id number] [place] [address]- 3457 Apr, [facility] [place] [facility] [address] [id number] [place] [address]- 5768 Apr, [facility] [place] [facility] [address] [id number] [place] [address]- 6070 Apr, [facility] [place] [facility] [address] [id number] [place] [address]- 0925 Apr, [facility] [place] [facility] [address] [id number] [place] [address]- 4969 Apr, [facility] [place] [facility] [address] [id number] [place] [address]- 3217 Apr, [facility] [place] [facility] [address] [id number] [place] [address]- 3448 Apr, [facility] [place] [facility] [address] [id number] [place] [address]- 0456 Apr, [facility] [place] [facility] [address] [id number] [place] [address]- 3767 Apr, [facility] [place] [facility] [address] [id number] [place] [address]- 3806 Apr, [facility] [place] [facility] [address] [id number] [place] [address]- 9387 Apr, [facility] [place] [facility] [address] [id number] [place] [address]- 8033 Apr, [facility] [place] [facility] [address] [id number] [place] [address]- 4628 Apr, [facility] [place] [facility] [address] [id number] [place] [address]- 4911 Apr, [facility] [place] [facility] [address] [id number] [place] [address]- 0394 Mar, [facility] [place] [facility] [address] [id number] [place] [address]- 2119 Mar, [facility] [place] [facility] [address] [id number] [place] [address]- 2619 Mar, [facility] [place] [facility] [address] [id number] [place] [address]- 7632 Mar, [facility] [place] [facility] [address] [id number] [place] [address]- 7091 Mar, [facility] [place] [facility] [address] [id number] [place] Mar, [facility] [place] [facility] [address] [id number] [place] [address]- 5395 18 Mar, 2014 [facility] [place] [facility] [address] [id number] [place] [address]- 5437 18 Mar, 2014 [facility] [place] [facility] [address] [id number] [place] [address]- 2589 15 Mar, 2014 [facility] [place] [facility] [address] [id number] [place] [address]- 0176 15 Mar, 2014 [facility] [place] [facility] [address] [id number] [place] [address]- 3737 15 Mar, 2014 [facility] [place] [facility] [address] [id number] [place] [address]- 7069 15 Mar, 2014 [facility] [place] [facility] [address] [id number] [place] [address]- 6981 Mar, [facility] [place] [facility] [address] [id number] [place] [address]- 3626 Mar, [facility] [place] [facility] [address] [id number] [place] [address]- 5146 Mar, [facility] [place] [facility] [address] [id number] [place] [address]- 5495 Mar, [facility] [place] [facility] [address] [id number] [place] [address]- 4174 Feb, [facility] [place] [facility] [address] [id number] [place] [address]- 5198 Feb, [facility] [place] [facility] [address] [id number] [place] [address]- 9410 Feb, [facility] [place] [facility] [address] [id number] [place] [address]- 7392 Feb, [facility] [place] [facility] [address] [id number] [place] [address]- 5684 Feb, [facility] [place] [facility] [address] [id number] [place] [address]- 5572 Feb, [facility] [place] [facility] [address] [id number] [place] [address]- 6031 19 Feb, 2014 [facility] [place] [facility] [address] [id number] [place] [address]- 7551 18 Feb, 2014 [facility] [place] [facility] [address] [id number] [place] [address]- 4434 18 Feb, 2014 [facility] [place] [facility] [address] [id number] [place] [address]- 2890 17 Feb, 2014 [facility] [place] [facility] [address] [id number] [place] [address]- 7789 17 Feb, 2014 [facility] [place] [facility] [address] [id number] [place] [address]- 6217 17 Feb, 2014 [facility] [place] [facility] [address] [id number] [place] [address]- 3019 17 Feb, 2014 [facility] [place] [facility] [address] [id number] [place] [address]- 6673 14 Feb, 2014 [facility] [place] [facility] [address] [id number] [place] [address]- 6526 14 Feb, 2014 [facility] [place] [facility] [address] [id number] [place] [address]- 2068 14 Feb, 2014 [facility] [place] [facility] [address] [id number] [place] [address]- 9132 14 Feb, 2014 [facility] [place] [facility] [address] [id number] [place] [address]- 2869 10 Feb, 2014 [facility] [place] [facility] [address] [id number] [place] [address]- 0741 10 Feb, 2014 [facility] [place] [facility] [address] [id number] [place] [address]- 4323 04 Feb, 2014 [facility] [place] [facility] [address] [id number] [place] [address]- 5850 04 Feb, 2014 [facility] [place] [facility] [address] [id number] [place] [address]- 5949 Jan, 2013 [facility] [place] [facility] [address] [id number] [place] [address]- 2910 30 Jan, 2013 [facility] [place] [facility] [address] [id number] [place] [address]- 5929 30 Jan, 2013 [facility] [place] [facility] [address] [id number] [place] [address]- 2231 Jan, [facility] [place] [facility] [address] [id number] [place] [address]- 6488 Jan, [facility] [place] [facility] [address] [id number] [place] [address]- 1954 Jan, [facility] [place] [facility] [address] [id number] [place] [address]- 1051 Jan, [facility] [place] [facility] [address] [id number] [place] [address]- 1513 Jan, [facility] [place] [facility] [address] [id number], [place] [address]- 7548 Jan, [facility] [place] [facility] [address] [id number] [place] [address]- 6007 Jan, [facility] [place] [facility] [address] [id number], [place] [address]- 4788 Jan, [facility] [place] [facility] [address] [id number][place] [address]- 7888 Jan, 2013 [facility] [place] [facility] [address] [id number], [place] [address]- 0758 Jan, 2013 [facility] [place] [facility] [address] [id number], [place] [address]- 9362 17 Jan, 2013 [facility] [place] [facility] [address] [id number], [place] [address]- 6757 15 Jan, 2014 [facility] [place] [facility] [address] [id number], [place] [address]- 1511 15 Jan, 2014 [facility] [place] [facility] [address] [id number] [place] [address]- 8591 14 Jan, 2014 [facility] [place] [facility] [address] [id number] [place] [address]- 4809 14 Jan, 2014 [facility] [place] [facility] [address] [id number] [place] [address]- 1196 13 Jan, 2014 [facility] [place] [facility] [address] [id number] [place] [address]- 6326 13 Jan, 2014 [facility] [place] [facility] [address] [id number] [place] [address]- 4267 13 Jan, 2014 [facility] [place] [facility] [address] [id number] [place] [address]- 2194 13 Jan, 2014 [facility] [place] [facility] [address] [id number] [place] [address]- 4460 10 Jan, 2014 [facility] [place] [facility] [address] [id number] [place] [address]- 3767 02 Jan, 2014 [facility] [place] [facility] [address] [id number] [place] [address]- 8638 02 Jan, 2014 [facility] [place] [facility] [address] [id number] [place] [address]- 4900 25 Dec, 2013 [facility] [place] [facility] [address] [id number] [place] [address]- 8468 25 Sep, 2013 [facility] [place] [facility] [address] [id number] [place] [address]- 2545 23 Sep, 2013 [facility] [place] [facility] [address] [id number] [place] [address]- 2548 23 Sep, 2013 [facility] [place] [facility] [address] [id number] [place] [address]- 2543 19 Sep, 2013 [facility] [place] [facility] [address] [id number] [place] [address]- 2544 19 Sep, 2013 [facility] [place] [facility] [address] [id number] [place] [address]- 7756 17 Sep, 2013 [facility] [place] [facility] [address] [id number] [place] [address]- 0824 17 Dec, 2013 [facility] [place] [facility] [address] [id number] [place] [address]- 6268 Dec, 2013 [facility] [place] [facility] [address] [id number] [place] [address]- 3300 Dec, 2013 [facility] [place] [facility] [address] [id number] [place] [address]- 7390 08 Dec, 2013 [facility] [place] [facility] [address] [id number] [place] [address]- 4137 08 Dec, 2013 [facility] [place] [facility] [address] [id number] [place] [address]- 0432 Dec, 2013 [facility] [place] [facility] [address] [id number] [place] [address]- 1110 Dec, 2013 [facility] [place] [facility] [address] [id number] [place] [address]- 9207 Dec, 2013 [facility] [place] [facility] [address] [id number] [place] [address]- 7245 Dec, 2013 [facility] [place] [facility] [address] [id number] [place] [address]- 7048 Dec, 2013 [facility] [place] [facility] [address] [id number] [place] [address]- 2492 Dec, 2013 [facility] [place] [facility] [address] [id number] [place] [address]- 4783 Nov, [facility] [place] [facility] [address] [id number] [place] [address]- 6727 Nov, [facility] [place] [facility] [address] [id number] [place] [address]- 9043 Nov, [facility] [place] [facility] [address] [id number] [place] [address]- 3611 Nov, [facility] [place] [facility] [address] [id number] [place] [address]- 9945 Nov, [facility] [place] [facility] [address] [id number] [place] [address]- 8855 Nov, [facility] [place] [facility] [address] [id number] [place] [address]- 5520 Nov, [facility] [place] [facility] [address] [id number] [place] [address]- 7306 Nov, [facility] [place] [facility] [address] [id number] [place] [address]- 0824 Nov, [facility] [place] [facility] [address] [id number] [place] [address]- 2476 Nov, [facility] [place] [facility] [address] [id number] [place] [address]- 7961 Nov, [facility] [place] [facility] [address] [id number] [place] [address]- 6240 Nov, [facility] [place] [facility] [address] [id number] [place] [address]- 9815 Oct, [facility] [place] [facility] [address] [id number] [place] [address]- 5148 Oct, [facility] [place] [facility] [address] [id number] [place] [address]- 3638 Oct, [facility] [place] [facility] [address] [id number] [place] [address]- 0341 Oct, [facility] [place] [facility] [address] [id number] [place] [address]- 8800 Oct, [facility] [place] [facility] [address] [id number] [place] [address]- 3133 Oct, [facility] [place] [facility] [address] [id number] [place] [address]- 6833 Oct, [facility] [place] [facility] [address] [id number] [place] [address]- 6244 Oct, [facility] [place] [facility] [address] [id number] [place] [address]- 4692 22 Oct, 2013 [facility] [place] [facility] [address] [id number] [place] [address]- 3095 22 Oct, 2013 [facility] [place] [facility] [address] [id number] [place] [address]- 8611 16 Oct, 2013 [facility] [place] [facility] [address] [id number] [place] [address]- 2977 16 Oct, 2013 [facility] [place] [facility] [address] [id number] [place] [address]- 4989 14 Oct, 2013 [facility] [place] [facility] [address] [id number] [place] [address]- 6628 14 Oct, 2013 [facility] [place] [facility] [address] [id number] [place] [address]- 6609 13 Oct, 2013 [facility] [place] [facility] [address] [id number] [place] [address]- 8275 13 Oct, 2013 [facility] [place] [facility] [address] [id number] [place] [address]- 0273 2013 [facility] [place] [facility] [address] [id number] [place] [address]- 3449 27 Sep, 2013 [facility] [place] [facility] [address] [id number] [place] [address]- 9017 27 Sep, 2013 [facility] [place] [facility] [address] [id number] [place] [address]- 9775 20 Sep, 2013 [facility] [place] [facility] [address] [id number] [place] [address]- 3403 20 Sep, 2013 [facility] [place] [facility] [address] [id number] [place] [address]- 6898 18 Sep, 2013 [facility] [place] [facility] [address] [id number] [place] [address]- 2666 18 Sep, 2013 [facility] [place] [facility] [address] [id number] [place] [address]- 4885 Sep, [facility] [place] [facility] [address] [id number] [place] [address]- 1934 17 Sep, 2013 [facility] [place] [facility] [address] [id number] [place] [address]- 9954 Sep, [facility] [place] [facility] [address] [id number] [place] [address]- 2064 Sep, [facility] [place] [facility] [address] [id number] [place] [address]- 3015 Sep, [facility] [place] [facility] [address] [id number] [place] [address]- 5784 Sep, [facility] [place] [facility] [address] [id number] [place] [address]- 2472 Sep, [facility] [place] [facility] [address] [id number] [place] [address]- 2050 Sep, [facility] [place] [facility] [address] [id number] [place] [address]- 0937 Sep, [facility] [place] [facility] [address] [id number] [place] [address]- 4269 Sep, [facility] [place] [facility] [address] [id number] [place] [address]- 5608 Sep, [facility] [place] [facility] [address] [id number] [place] [address]- 2263 Sep, [facility] [place] [facility] [address] [id number] [place] [address]- 8523 Sep, [facility] [place] [facility] [address] [id number] [place] [address]- 5625 Sep, [facility] [place] [facility] [address] [id number] [place] [address]- 7987 Sep, [facility] [place] [facility] [address] [id number] [place] [address]- 9042 Sep, [facility] [place] [facility] [address] [id number] [place] [address]- 9720 August, [facility] [address] [id number] [place] [address]- 6476 August, [facility] [place] [facility] [address] [id number] [place] [address]- 2814 August, [facility] [address] [id number] [place] [address]- 5390 August, [facility] [place] [facility] [address] [id number] [place] [address]- 9787 August, [facility] [address] [id number] [place] [address]- 1122 August, [facility] [place] [facility] [address] [id number] [place] [address]- 9802 August, [facility] [address] [id number] [place] [address]- 1284 August, [facility] [address] [id number] [place] [address]- 7044 August, [facility] [address] [id number] [place] [address] August, [facility] [place] [facility] [address] [id number] [place] [address] August, [facility] [place] [facility] [address] [id number] [place] [address] Jul, [facility] [place] [facility] [address] [id number] [place] [address] Jul, [facility] [place] [facility] [address] [id number] [place] [address] Jul, [facility] [place] [facility] [address] [id number] [place] [address] Jul, [facility] [place] [facility] [address] [id number] [place] [address] Jul, [facility] [place] [facility] [address] [id number] [place] [address] 23 Jul, 2013 [facility] [place] [facility] [address] [id number] [place] [address] Jul, [facility] [place] [facility] [address] [id number] [place] [address] Jul, [facility] [place] [facility] [address] [id number] [place] [address] 18 Jul, 2013 [facility] [place] [facility] [address] [id number] [place] [address] 18 Jul, 2013 [facility] [place] [facility] [address] [id number] [place] [address]- 68[address] 16 Jul, 2013 [facility] [place] [facility] [address] [id number] [place] [address]- [address] 14 Jul, 2013 [facility] [place] [facility] [address] [id number] [place] [address] 14 Jul, 2013 [facility] [place] [facility] [address] [id number] [place] [address] 8867 Jul, [facility] [place] [facility] [address] [id number] [place] [address] 11 Jul, 2013 [facility] [place] [facility] [address] [id number] [place] [address] 10 Jul, 2013 [facility] [place] [facility] [address] [id number] [place] [address]30 10 Jul, 2013 [facility] [place] [facility] [address] [id number] [place] [address] 05 Jul, 2013 [facility] [place] [facility] [address] [id number] [place] [address] 05 Jul, 2013 [facility] [place] [facility] [address] [id number] [place] [address]- 6074 02 Jul, 2013 [facility] [place] [facility] [address] [id number] [place] [address] Jul, [facility] [place] [facility] [address] [id number] [place] [address] 29[address] Jul, [facility] [place] [facility] [address] [id number] [place] [address] Jul, [facility] [place] [facility] [address] [id number] [place] [address] Jun, [facility] [place] [facility] [address] [id number] [place] [address] Jun, [facility] [place] [facility] [address] [id number] [place] [address]678 Jun, [facility] [place] [facility] [address] [id number] [place] [address] Jun, [facility] [place] [facility] [address] [id number] [place] [address] 84[address] Jun, [facility] [place] [facility] [address] [id number] [place] [address]483 Jun, [facility] [place] [facility] [address] [id number] [place] [address] 7[address] Jun, [facility] [place] [facility] [address] [id number] [place] [address] Jun, [facility] [place] [facility] [address] [id number] [place] [address] 89[address] Jun, [facility] [place] [facility] [address] [id number], [place] [address] Jun, [facility] [place] [facility] [address] [id number] [place] [address] 8140 Jun, [facility] [place] [facility] [address] [id number] [place] [address]- 3836 Jun, [facility] [place] [facility] [address] [id number] [place] [address] 18 May, 2013 [facility] [place] [facility] [address] [id number] [place] [address]- [address] May, [facility] [address] [id number] [place] [address] Apr, [facility] [address] [id number] [place] [address] 74[address] Apr, [facility] [address] [id number] [place] [address] Apr, [facility] [address] [id number] [place] [address]- 4360 Apr, [facility] [address] [id number] [place] [address] Apr, [facility] [address] [id number] [place] [address]- 3578 Apr, [facility] [address] [id number] [place] [address] 9526 Apr, [facility] [address] [id number] [place] [address]- 65[address] Apr, [facility] [address] [id number] [place] [address] Apr, [facility] [address] [id number] [place] [address] Apr, [facility] [address] [id number] [place] [address]- 0798 Apr, [facility] [address] [id number] [place] [address] Mar, [facility] [place] [facility] [address] [id number] [place] [address] Mar, [facility] [address] [id number] [place] [address] Mar, [facility] [address] [id number] [place] [address] 8408 Mar, [facility] [place] [facility] [address] [id number] [place] [address]- 4608 Feb, [facility] [place] [facility] [address] [id number] [place] [address] 18[address] Feb, [facility] [place] [facility] [address] [id number], [place] [address] Feb, [facility] [place] [facility] [address] [id number], [place] [address] Feb, [facility] [place] [facility] [address] [id number] [place] [address]- 7986 Feb, [facility] [place] [facility] [address] [id number], [place] [address]- 9[address] Feb, [facility] [place] [facility] [address] [id number], [place] [address] Feb, [facility] [place] [facility] [address] [id number], [place] [address]- 23[address] Feb, [facility] [place] [facility] [address] [id number], [place] [address] Feb, [facility] [place] [facility] [address] [facility] [id number], [place] [address]- [address] Feb, [facility] [place] [facility] [address] [id number], [place] [address]- 1670 Feb, [facility] [place] [facility] [address] [id number], [place] [address]- 6935 Jan, [facility] [place] [facility] [address] [id number], [place] [address]- [address] Jan, [facility] [place] [facility] [address] [id number], [place] [address]- [address] Jan, [facility] [place] [facility] [address] [facility] [id number], [place] [address]- [address] Jan, [facility] [place] [facility] [address] [id number], [place] [address]- [address] 10 Jan, 2013 [facility] [address] [id number] [place] [address]- 3731 10 Jan, 2013 [facility] [place] [facility] [address] [id number] [place] [address]- 2066 03 Jan, 2013 [facility] [place] [facility] [address] [id number] [place] [address]- 9304 02 Jan, 2013 [facility] [place] [facility] [address] [id number] [place] [address]- 8617 30 Dec, 2012 [facility] [place] [facility] [address] [id number] [place] [address]- 9441 25 Dec, 2012 [facility] [place] [facility] [address] [id number] [place] [address]- 9872 18 Dec, 2012 [facility] [place] [facility] [address] [id number] [place] [address]- 9195 17 Dec, 2012 [facility] [place] [facility] [address] [id number] [place] [address]1 17 Dec, 2012 [facility] [place] [facility] [address] [id number] [place] [address] 1394 16 Dec, 2012 [facility] [place] [facility] [address] [id number] [place] [address] 2593 13 Dec, 2012 [facility] [place] [facility] [address] [id number] [place] [address] 5697 11 Dec, 2012 [facility] [place] [facility] [address] [id number] [place] [address] 2541 05 Dec, 2012 [facility] [place] [facility] [address] [id number] [place] [address] 04 Dec, 2012 [facility] [place] [facility] [address] [id number] [place] [address] 1504 30 Nov, 2012 [facility] [place] [facility] [address] [id number] [place] [address] 9495 29 Nov, 2012 [facility] [place] [facility] [address] [id number] [place] [address] 1115 22 Nov, 2012 [facility] [place] [facility] [address] [id number] [place] [address] 6192 16 Nov, 2012 [facility] [place] [facility] [address] [id number] [place] [address] 6416 14 Nov, 2012 [facility] [place] [facility] [address] [id number] [place] [address] 2179 Nov, [facility] [place] [facility] [address] [id number] [place] [address] 5095 05 Nov, 2012 [facility] [place] [facility] [address] [id number] [place] [address] 8297 Oct, [facility] [place] [facility] [address] [id number] [place] [address] 3186 Oct, [facility] [place] [facility] [address] [id number] [place] [address] 9547 Oct, [facility] [place] [facility] [address] [id number] [place] [address] 5642 Oct, [facility] [place] [facility] [address] [id number] [place] [address]- 2890 Oct, [facility] [place] [facility] [address] [id number] [place] [address] 4619 Oct, [facility] [place] [facility] [address] [id number] [place] [address]- 7189 Sep, [facility] [place] [facility] [address] [id number] [place] [address] 9171 28 Sep, 2012 [facility] [place] [facility] [address] [id number] [place] [address]- 9722 27 Sep, 2012 [facility] [place] [facility] [address] [id number] [place] [address] 9456 14 Sep, 2012 [facility] [place] [facility] [address] [id number] [place] [address] 4065 Sep, [facility] [address] [id number] [place] [address] 8404 Sep, [facility] [address] [id number] [place] [address] 1660 Sep, [facility] [address] [id number] [place] [address]- 8941 Sep, [facility] [address] [id number] [place] [address] 2109 Sep, [facility] [address] [id number] [place] [address] 5168 August, [facility] [address] [id number] [place] [address] 0078 August, [facility] [address] [id number] [place] [address]- 9465 August, [facility] [address] [id number] [place] [address] 3399 August, [facility] [address] [id number] [place] [address]- 6313 August, [facility] [address] [id number] [place] [address] 5293 August, [facility] [address] [id number] [place] [address]- 5113 August, [facility] [address] [id number] [place] [address]- 5299 August, [facility] [address] [id number] [place] [address] 3791 Jul, [facility] [address] [id number] [place] [address] 3722 Jul, [facility] [address] [place] [id number] Jul [facility] [address] [id number] [place] [address]- 1496 Jun, [facility] [address] [id number] [place] [address] 5370 Jun, [facility] [address] [id number] [place] [address]- 2853 Jun, [facility] [address] [facility] [id number] [place] [address]- 4262 Jun, [facility] [address] [id number] [place] [address]- 5441 Jun, [facility] [address] [id number] [place] [address]- 8632 Jun, [facility] [address] [id number] [place] [address]- 4282 May, [facility] [address] [facility] [id number] [place] [address]- 6294 May, [facility] [address] [id number] [place] [address]- 4094 May, [facility] [address] [id number] [place] [address]- 1854 May, [facility] [address] [facility] [id number] [place] [address]- 4355 May, [facility] [address] [id number], [place] [address] Apr, [facility] [place] [facility] [address] [id number], [place] [address] 00[address] Apr, [facility] [place] [facility] [address] [id number] [place] [address]- 7862 Apr, [facility] [place] [facility] [address] [id number], [place] [address] 7957 Apr, [facility] [place] [facility] [address] [facility] [id number], [place] [address]- 2218 Apr, [facility] [place] [facility] [address] [id number] [place] [address]- 4954 Apr, [facility] [place] [facility] [address] [id number] [place] [address]- 1036 Mar, [facility] [place] [facility] [address] [id number] [place] [address] 2546 Mar, [facility] [place] [facility] [address] [id number] [place] [address]- 0146 Mar, [facility] [place] [facility] [address] [id number] [place] [address]- 1533 Mar, [facility] [place] [facility] [address] [id number] [place] [address]- 9306 Mar, [facility] [place] [facility] [address] [id number] [place] [address]- 2388 Mar, [facility] [place] [facility] [address] [id number] [place] [address]- 9515 Mar, [facility] [place] [facility] [address] [id number] [place] [address]- 0408 Mar, [facility] [place] [facility] [address] [id number] [place] [address]- 4734 Mar, [facility] [place] [facility] [address] [id number] [place] [address] Mar, [facility] [place] [facility] [address] [id number] [place] [address]- 8505 Mar, [facility] [place] [facility] [address] [id number] [place] [address]- 1598 Feb, [facility] [place] [facility] [address] [id number] [place] [address]- 3386 Feb, [facility] [place] [facility] [address] [id number] [place] [address]- 5086 Feb, [facility] [place] [facility] [address] [id number] [place] [address] 3311 Feb, [facility] [place] [facility] [address] [id number] [place] [address]- 0685 Feb, [facility] [place] [facility] [address] [id number] [place] [address]- 2181 Feb, [facility] [place] [facility] [address] [facility] [id number] [place] [address]97 Feb, [facility] [place] [facility] [address] [id number] [place] [address], [place] [address]- 6131 Feb, [facility] [place] [facility] [address] [id number] [place] [address]- 7836 Feb, [facility] [place] [facility] [address] [id number] [place] [address], [place] [address]- 5412 Feb, [facility] [place] [facility] [address] [facility] [id number] [place] [address]- 1355 Feb, [facility] [place] [facility] [address] [id number], [place] [address] Jan, [facility] [place] [facility] [address] [id number], [place] [address]- 0758 Jan, [facility] [place] [facility] [address] [facility] [id number], [place] [address]- 7432 Jan, [facility] [place] [facility] [address] [id number], [place] [address]- 1617 Jan, [facility] [place] [facility] [address] [id number], [place] [address]- 5582 Jan, [facility] [place] [facility] [address] [id number], [place] [address]- 5710 Jan, [facility] [place] [facility] [address] [facility] [id number], [place] [address]- 4778 Jan, [facility] [place] [facility] [address] [facility] [id number], [place] [address]- 7569 24 Dec, 2011 [facility] [place] [facility] [address] [id number] [place] [address]- 7134 17 Dec, 2011 [facility] [place] [facility] [address] [id number] [place] [address]- 5976 13 Dec, 2011 [facility] [place] [facility] [address] [id number] [place] [address]- 8986 12 Dec, 2011 [facility] [place] [facility] [address] [id number] [place] [address]- 6276 23 Nov, 2011 [facility] [place] [facility] [address] [id number] [place] [address] 2546 20 Nov, 2011 [facility] [place] [facility] [address] [id number] [place] [address]- 8584 17 Nov, 2011 [facility] [place] [facility] [address] [id number] [place] [address]- 3939 15 Nov, 2011 [facility] [place] [facility] [address] [id number] [place] [address]- 8755 14 Nov, 2011 [facility] [place] [facility] [address] [id number] [place] [address]- 3567 Nov, [facility] [place] [facility] [address] [id number] [place] [address]- 5276 Nov, [facility] [place] [facility] [address] [id number] [place] [address]- 6261 Nov, [facility] [place] [facility] [address] [id number] [place] [address]- 7266 Nov, [facility] [place] [facility] [address] [id number] [place] [address]- 2543 Nov, [facility] [place] [facility] [address] [id number] [place] [address]- 8186 Nov, [facility] [place] [facility] [address] [id number] [place] [address]- 4946 Nov, [facility] [place] [facility] [address] [id number] [place] [address]- 9494 Nov, [facility] [place] [facility] [address] [id number] [place] [address]- 6402 Oct, [facility] [place] [facility] [address] [id number] [place] [address]- 9651 Oct, [facility] [place] [facility] [address] [id number] [place] [address]- 6082 Oct, [facility] [place] [facility] [address] [id number] [place] [address]- 4343 Oct, [facility] [place] [facility] [address] [id number] [place] [address]- 5946 Oct, [facility] [place] [facility] [address] [id number] [place] [address]- 2734 Oct, [facility] [place] [facility] [address] [id number] [place] [address]- 9390 Oct, [facility] [place] [facility] [address] [id number] [place] [address]- 4457 Oct, [facility] [place] [facility] [address] [id number] [place] [address]- 6547 Oct, [facility] [place] [facility] [address] [id number] [place] [address]- 8054 Sep, [facility] [place] [facility] [address] [id number] [place] [address]- 9051 Sep, [facility] [place] [facility] [address] [id number] [place] [address]- 1983 Sep, [facility] [place] [facility] [address] [id number] [place] [address]- 8304 Sep, [facility] [place] [facility] [address] [id number] [place] [address]- 2024 Sep, [facility] [place] [facility] [address] [id number] [place] [address]- 8962 Sep, [facility] [place] [facility] [address] [id number] [place] [address]46 Sep, [facility] [address] [id number] [address] Sep, [facility] [address]005[address] [address] 3666 August, [facility] [address]005[address] [address] 9844 August, [facility] [address] [id number] [address] 1522 August, [facility] [address]005[address] [address] 3419 August, [facility] [address] [id number] [address] 5572 August, [facility] [address]005[address] [address] 9212 August, [facility] [address]005[address] [address] 7543 August, [facility] [address] [address]20 August, [facility] [address] [address] 6504 August, [facility] [address] [address] 0911 August, [facility] [address] [id number] [address]107 August, [facility] [address] [id number], [place] [address]46 August, [facility] [address] [address] 3868 Oct, IMMUNIZATIONS No Known Immunizations SOCIAL HISTORY Never Assessed REASON FOR VISIT arm pain PLAN OF CARE VITAL SIGNS MEDICATIONS Unknown [...] Surgical History bladder surgery Hospitalization History Via [facility] for right groin pain 05/2011 Hospitalization History Via [facility] for wound on buttocks 08/2012 Hospitalization History Via [facility], hypoxia secondary to pneumonia 12/02-12/09 Hospitalization History Pneumonia, elevated CO2 on Bipap was in ICU 08/2013 Hospitalization History Hypoxia, Exacerbation COPD, Chest pain 09/05/15 Hospitalization History suicidal ideations-[facility] 12/28 Hospitalization History hypoxia--[facility] 02/13/2016 Hospitalization History shortness of breath at june 2016 Hospitalization History Shortness of breath at august 2016 Hospitalization History SOB, chest pain at 12/2016
--- OUTSIDE RECORDS SUMMARY | 2017-11-24 18:31 | XMS REPORT ---
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 [address] [phone] Mar, Dental examination Z01.20 [facility] [address] [place] [address] 17474- 4476 Mar, Chronic diarrhea K52.9 ; Intractable vomiting with nausea, vomiting of unspecified type R11.2 ; Cellulitis, unspecified cellulitis site L03.90 ; Type 2 diabetes mellitus with diabetic polyneuropathy E11.42 and Postinflammatory hyperpigmentation L81.0 [facility] [address] [place] [address] 52501- 0258 Mar, Unspecified mood [affective] disorder F39 [facility] [address] [facility] [id number] [address]- 1532 Mar, Unspecified mood [affective] disorder F39 [facility] [address] [facility] [id number] [address]- 4896 Mar, [facility] [address] [facility] [id number] [address]- 7786 Mar, [facility] [address] [facility] [id number] [address]- 2590 Mar, [facility] [address] [facility] [id number] [address]- 8636 Mar, [facility] [address] [facility] [id number] [address]- 6457 Mar, [facility] [id number] [address]- 7378 Mar, [facility] [address] [facility] [id number] [address]- 9359 Feb, Unspecified mood [affective] disorder F39 [facility] [address] [facility] [id number] [address]- 8303 Feb, [facility] [id number] [address]- 6403 Feb, [facility] [id number] [address]- 0244 Jan, Unspecified mood [affective] disorder F39 [facility] [address] [id number] [id number] Jan, Encounter for dental examination Z01.20 [facility] [id number] [address]- 6809 Jan, [facility] [id number] [address]- 7323 Jan, [facility] [id number] [place] [address] 46160- 1152 Jan, [facility] [id number] [place] [address] 29770- 8767 Jan, [facility] [id number] [place] [address] 00663- 3017 Jan, [facility] [address] 94135- 7710 Jan, Abdominal abscess K65.1 and Dental caries K02.9 [facility] [address] 27368- 0642 Jan, [facility] [address] 43598- 5197 30 Dec, 2014 Diabetes with neurological manifestations, type II or unspecified type, not stated as uncontrolled 250.60 ; Essential hypertension, benign 401.1 ; Concussion 850.9 and Skin texture changes 782.8 [facility] [id number] [place] [address] 40322- 5026 Dec, [facility] [id number] [place] [address] 33116- 2596 24 Dec, 2014 [facility] [id number] [place] [address] 02875- 9106 22 Dec, 2014 [facility] [id number] [place] [address] 19432- 2591 21 Dec, 2014 [facility] [id number] [place] [address] 48337- 1293 17 Dec, 2014 Affective disorder 296.90 [facility] [id number] [place] [address] 26660- 4503 14 Dec, 2014 [facility] [id number] [place] [address] 07353- 2946 10 Dec, 2014 Affective disorder 296.90 [facility] [id number] [place] [address] 96619- 5049 Dec, 2014 [facility] [id number] [address]- 4566 Dec, 2014 [facility] [address] [address] 2546 Dec, 2014 [facility] [address] [address] 2546 Dec, 2014 [facility] [id number] [place] [address] 61785 2546 Nov, Affective disorder 296.90 [facility] [address] [address] 2546 Nov, [facility] [address] [place] [address] 36349- 8835 Nov, Affective disorder 296.90 [facility] [address] [address]- 2946 Nov, Diarrhea 787.91 [facility] [address] [address] 2546 Nov, [facility] [address] [address] 254 Nov, Diarrhea 787.91 [facility] [address] [address] 2546 Nov, Diarrhea 787.91 and Hyperlipidemia 272.4 [facility] [address] [address] 2546 Nov, Diarrhea 787.91 [facility] [id number] [address] 2546 Nov, Affective disorder 296.90 [facility] [address] [address]- 2546 Nov, Affective disorder 296.90 [facility] [id number] [address]- 3756 Nov, Affective disorder 296.90 [facility] [address] [address]- 8282 14 Nov, 2014 [facility] [address] [address]- 4685 Nov, [facility] [address] [address]- 6930 Nov, [facility] [id number] [place] [address] 63816- 3189 Nov, Episodic mood disorder 296.90 [facility] [address] [address]- 2543 Nov, [facility] [id number] [place] [address] 77119- 0794 Nov, [facility] [address] [address]- 1029 Nov, [facility] [address] [address]- 9000 Nov, [facility] [address] [address]- 6004 Nov, [facility] [address] [address]- 3183 Nov, Lymphedema 457.1 ; Hyperlipidemia 272.4 ; Essential hypertension, benign 401.1 and Numbness of toes 782.0 [facility] [address] [address]- 5449 Nov, Episodic mood disorder 296.90 [facility] [address] [address]- 3293 Oct, [facility] [address] [address]- 8829 Oct, [facility] [address] [address]- 8984 Oct, [facility] [id number] [place] [address]- 1814 15 Oct, 2014 [facility] [address] [facility] [id number] [place] [address]- 2718 14 Oct, 2014 [facility] [place] [facility] [address] [facility] [id number] [place] [address]- 9768 Oct, 2014 [facility] [address] [facility] [id number] [place] [address]- 0217 Oct, 2014 [facility] [place] [facility] [address] [facility] [id number] [place] [address]- 6664 Oct, 2014 [facility] [address] [facility] [id number] [place] [address]- 0704 Oct, Episodic mood disorder 296.90 [facility] [address] [id number] [place] [place] [address]- 5594 Sep, [facility] [address] [place] [place] [address]- 5566 Sep, [facility] [address] [facility] [id number] [place] [address]- 6241 Sep, [facility] [place] [facility] [address] [id number] [place] [place] [address]- 3742 Sep, [facility] [id number] [place] [place] [address]- 7695 Sep, [facility] [id number] [address]- 5727 Sep, Episodic mood disorder 296.90 [facility] [address] [facility] [id number] [place] [address]- 2561 Sep, Unspecified episodic mood disorder 296.90 [facility] [place] [facility] [address] [id number] [place] [place]- 3745 Sep, [facility] [place] [facility] [address] [id number] [place] [place] [address]- 4434 Sep, [facility] [place] [facility] [address] [address]- 6642 Sep, Episodic mood disorder 296.90 [facility] [id number] [place] [address] 26457- 9373 Sep, [facility] [address] [address]- 4419 Sep, [facility] [id number] [place] [address] 61983- 0460 Sep, [facility] [id number] [place] [address] 73935- 2504 Sep, Hematemesis 578.0 and Vomiting 787.03 [facility] [id number] [place] [address] 38300- 2938 Sep, Episodic mood disorder 296.90 [facility] [id number] [place] [address] 25048- 4195 Sep, [facility] [id number] [place] [address] 30009- 4409 Sep, [facility] [address] [place] [address] 92706- 0829 Sep, Diabetes mellitus without mention of complication, type II or unspecified type, not stated as uncontrolled 250.00 and Other chronic pain 338.29 [facility] [address] [address]- 2838 Sep, Episodic mood disorder 296.90 [facility] [address] [address]- 0885 Sep, [facility] [id number] [place] [address] Sep, Episodic mood disorder 296.90 [facility] [id number] [id number] Sep, [facility] [id number] [place] [address] August, [facility] [address] [facility] [id number] [place] [address] August, [facility] [address] [facility] [id number] [place] [address] August, Episodic mood disorder 296.90 [facility] [address] [id number] [place] [address] August, [facility] [address] [id number] [place] [address] August, Unspecified episodic mood disorder 296.90 [facility] [address] [id number] [place] [place] [address] August, Vomiting 787.03 [facility] [address] [id number] [place] [address] August, [facility] [address] [place] [address] August, [facility] [address] [id number] [place] [address] August, [facility] [address] [place] [address] August, [facility] [address] [id number] [place] [address] August, [facility] [address] [id number] [place] [address] Jul, [facility] [address] [facility] [id number] [place] [address] Jul, [facility] [address] [facility] [id number] [place] [address]- [address] Jul, [facility] [address] [facility] [id number] [place] [address] Jun, [facility] [address] [id number] [place] [place] [address] Jun, [facility] [place] [facility] [address] [id number] [place] [address] 30 Jun, 2014 [facility] [place] [facility] [address] [id number] [place] [address]- [address] Jun, [facility] [place] [facility] [address] [id number] [place] [address] Jun, [facility] [place] [facility] [address] [id number] [place] [address]- [address] Jun, [facility] [place] [facility] [address] [id number] [place] [address] Jun, [facility] [place] [facility] [address] [id number] [place] [address] Jun, [facility] [place] [facility] [address] [id number] [place] [address]- [address] Jun, [facility] [place] [facility] [address] [id number] [place] [address]- [address] Jun, [facility] [place] [facility] [address] [id number] [place] [address]- 2010 Jun, [facility] [place] [facility] [address] [id number] [place] [address]- [address] Jun, [facility] [place] [facility] [address] [id number] [place] [address]- [address] Jun, [facility] [place] [facility] [address] [id number] [place] [address]- [address] Jun, [facility] [place] [facility] [address] [id number] [place] [address]- [address] Jun, [facility] [place] [facility] [address] [id number] [place] [address]- [address] Jun, [facility] [place] [facility] [address] [id number] [place] [address] Jun, [facility] [place] [facility] [address] [id number] [place] [address]- [address] 23 Jun, 2014 [facility] [place] [facility] [address] [id number] [place] [address]- [address] 23 Jun, 2014 [facility] [facility] [address] [id number] [place] [address] 21 Jun, 2014 [facility] [place] [facility] [address] [id number] [place] [address]- 5906 21 Jun, 2014 [facility] [place] [facility] [address] [id number] [place] [address]- 6466 20 Jun, 2014 [facility] [place] [facility] [address] [id number] [place] [address]- 3226 20 Jun, 2014 [facility] [place] [facility] [address] [id number] [place] [address]- 4598 20 Jun, 2014 [facility] [place] [facility] [address] [id number] [place] [address]- 4066 20 Jun, 2014 [facility] [place] [facility] [address] [id number] [place] [address]- 7567 19 Jun, 2014 [facility] [place] [facility] [address] [id number] [place] [address]- 6413 19 Jun, 2014 [facility] [place] [facility] [address] [id number] [place] [address]- 3591 18 Jun, 2014 [facility] [place] [facility] [address] [id number] [place] [address]- 4298 18 Jun, 2014 [facility] [place] [facility] [address] [id number] [place] [address]- 0931 17 Jun, 2014 [facility] [place] [facility] [address] [id number] [place] [address]- 1159 17 Jun, 2014 [facility] [place] [facility] [address] [id number] [place] [address]- 5009 16 Jun, 2014 [facility] [place] [address] [id number] [place] [address]- 1421 16 Jun, 2014 [facility] [place] [facility] [address] [id number] [place] [address]- 6966 16 Jun, 2014 [facility] [place] [facility] [address] [id number] [place] [address]- 0070 16 Jun, 2014 [facility] [place] [address] [id number] [place] [address]- 1956 16 Jun, 2014 [facility] [place] [facility] [address] [id number] [place] [address]- 3441 16 Jun, 2014 [facility] [place] [facility] [address] [id number] [place] [address]- 7641 13 Jun, 2014 [facility] [place] [facility] [address] [id number] [place] [address]- 6242 13 Jun, 2014 [facility] [place] [facility] [address] [id number] [place] [address]- 5151 Jun, 2014 [facility] [place] [facility] [address] [id number] [place] [address]- 5314 Jun, 2014 [facility] [place] [facility] [address] [id number] [place] [address]- 1488 Jun, [facility] [place] [facility] [address] [id number] [place] [address]- 4650 Jun, 2014 [facility] [address] [id number] [place] [address]- 9823 Jun, 2014 [facility] [place] [facility] [address] [id number] [place] [address]- 4886 Jun, 2014 [facility] [place] [facility] [address] [id number] [place] [address]- 0875 Jun, 2014 [facility] [place] [address] [id number] [place] [address]- 7812 Jun, 2014 [facility] [place] [facility] [address] [id number] [place] [address]- 6966 Jun, 2014 [facility] [place] [facility] [address] [id number] [place] [address]- 0667 Jun, [facility] [place] [facility] [address] [id number] [place] [address]- 1792 Jun, [facility] [address] [id number] [place] [address]- 9406 Jun, [facility] [place] [address] [id number] [place] [address]- 9046 Jun, [facility] [address] [id number] [place] [address]- 3770 Jun, [facility] [address] [id number] [place] [address]- 0469 Jun, [facility] [place] [facility] [address] [id number] [place] [address]- 8144 Jun, [facility] [address] [facility] [id number] [place] [address]- 7904 Jun, [facility] [address] [id number] [place] [address]- 2983 Jun, [facility] [place] [address] [id number] [place] [address]- 6581 May, [facility] [address] [facility] [id number] [place] [address]- 9021 May, [facility] [address] [id number] [address]- [address]578 May, 2014 [facility] [address] [id number] [address]- 7317 May, 2014 [facility] [address] [id number] [place] [address]- 1509 May, [facility] [address] [id number] [place] [address]- 0290 May, [facility] [address] [facility] [id number] [place] [address]- 9176 May, [facility] [address] [id number] [place] [address]- 4035 May, 2014 [facility] [address] [id number] [place] [address]- 1346 May, 2014 [facility] [address] [facility] [id number] [place] [address]- 2546 May, 2014 [facility] [address] [facility] [id number] [place] [address]- 8648 18 May, 2014 [facility] [address] [id number] [place] [address]- 2549 18 May, 2014 [facility] [address] [facility] [id number] [place] [address]- 5496 13 May, 2014 [facility] [address] [facility] [id number] [place] [address]- 0528 13 May, 2014 [facility] [address] [facility] [id number] [place] [address]- 6701 May, 2014 [facility] [address] [facility] [id number] [place] [address]- 0888 May, 2014 [facility] [address] [facility] [id number] [place] [address]- 4948 May, 2014 [facility] [address] [facility] [id number] [place] [address]- 1255 May, 2014 [facility] [address] [facility] [id number] [address]- 3489 May, 2014 [facility] [address] [facility] [id number] [place] [address]- 2541 May, 2014 [facility] [address] [facility] [id number] [place] [address]- 9084 May, 2014 [facility] [address] [facility] [id number] [place] [address]- 0646 May, 2014 [facility] [address] [facility] [id number] [place] [address]- 0674 May, [facility] [address] [id number] [place] [address]- 2760 May, [facility] [address] [id number] [place] May, [facility] [address] [id number] [place] [address]- 1396 May, [facility] [address] [id number] [place] [address]- 0663 May, [facility] [address] [id number] [place] [address]- 7336 Apr, [facility] [address] [id number] [place] [address]- 5568 Apr, [facility] [address] [id number] [place] [address]- 9025 Apr, [facility] [address] [id number] [place] [address]- 7000 Apr, [facility] [address] [id number] [place] [address]- 2049 Apr, [facility] [address] [id number] [place] [address]- 3552 Apr, [facility] [address] [id number] [place] [address]- 2477 Apr, [facility] [address] [id number] [place] [address]- 1110 Apr, [facility] [address] [id number] [place] [address]- 0292 Apr, [facility] [address] [id number] [place] [address]- 4130 Apr, [facility] [address] [id number] [place] [address]- 1417 Apr, [facility] [address] [id number] [place] [address]- 1352 Apr, [facility] [address] [id number] [place] [address]- 4323 Apr, [facility] [address] [id number] [place] [address]- 3441 Apr, [facility] [address] [id number] [place] [address]- 9248 Apr, [facility] [address] [id number] [place] [address]- 8186 Apr, [facility] [address] [id number] [place] [address]- 2077 Apr, [facility] [address] [id number] [place] [address]- 3964 Apr, [facility] [address] [id number] [place] [address]- 2184 Apr, [facility] [address] [id number] [place] [address]- 3183 Apr, [facility] [address] [id number] [place] [address]- 1710 Mar, [facility] [address] [id number] [place] [address]- 2168 Mar, [facility] [address] [id number] [place] [address]- 7259 Mar, [facility] [address] [id number] [place] [address]- 6430 Mar, [facility] [address] [id number] [place] [address]- 2261 Mar, [facility] [address] [id number] [place] Mar, [facility] [address] [id number] [place] [address]- 6153 18 Mar, 2014 [facility] [address] [id number] [place] [address]- 7167 18 Mar, 2014 [facility] [address] [id number] [place] [address]- 7144 15 Mar, 2014 [facility] [address] [id number] [place] [address]- 8556 15 Mar, 2014 [facility] [address] [id number] [place] [address]- 0353 15 Mar, 2014 [facility] [address] [id number] [place] [address]- 5287 15 Mar, 2014 [facility] [address] [id number] [place] [address]- 0674 Mar, [facility] [address] [id number] [place] [address]- 7794 Mar, [facility] [address] [id number] [place] [address]- 9366 Mar, [facility] [address] [id number] [place] [address]- 9798 Mar, [facility] [address] [id number] [place] [address]- 6672 Feb, [facility] [address] [id number] [place] [address]- 4319 Feb, [facility] [address] [id number] [place] [address]- 2929 Feb, [facility] [address] [id number] [place] [address]- 8183 Feb, [facility] [address] [id number] [place] [address]- 4788 Feb, [facility] [address] [id number] [place] [address]- 1149 Feb, [facility] [address] [id number] [place] [address]- 8803 19 Feb, 2014 [facility] [address] [id number] [place] [address]- 2968 18 Feb, 2014 [facility] [address] [id number] [place] [address]- 4793 18 Feb, 2014 [facility] [address] [id number] [place] [address]- 7057 17 Feb, 2014 [facility] [address] [id number] [place] [address]- 3512 17 Feb, 2014 [facility] [address] [id number] [place] [address]- 7251 17 Feb, 2014 [facility] [address] [id number] [place] [address]- 2892 17 Feb, 2014 [facility] [address] [id number] [place] [address]- 9120 14 Feb, 2014 [facility] [address] [id number] [place] [address]- 1444 14 Feb, 2014 [facility] [address] [id number] [place] [address]- 3008 14 Feb, 2014 [facility] [address] [id number] [place] [address]- 5889 14 Feb, 2014 [facility] [address] [id number] [place] [address]- 5500 10 Feb, 2014 [facility] [address] [id number] [place] [address]- 1672 10 Feb, 2014 [facility] [address] [id number] [place] [address]- 5247 04 Feb, 2014 [facility] [address] [id number] [place] [address]- 2925 04 Feb, 2014 [facility] [address] [id number] [place] [address]- 5989 Jan, 2013 [facility] [address] [id number] [place] [address]- 4366 30 Jan, 2013 [facility] [address] [id number] [place] [address]- 4632 30 Jan, 2013 [facility] [address] [id number] [place] [address]- 9572 Jan, [facility] [address] [id number] [place] [address]- 8640 Jan, [facility] [address] [id number] [place] [address]- 2760 Jan, [facility] [address] [id number] [place] [address]- 0290 Jan, [facility] [address] [id number] [place] [address]- 3487 Jan, [facility] [address] [id number] [address]- 5987 Jan, [facility] [address] [id number] [place] [address]- 0692 Jan, [facility] [facility] [address] [id number], [place] [address]- 6009 Jan, [facility] [address] [id number], [place] [address]- 8909 Jan, 2013 [facility] [address] [id number] [address]- 5827 Jan, 2013 [facility] [address] [id number], [place] [address]- 0224 17 Jan, 2013 [facility] [address] [id number] [address]- 8602 15 Jan, 2014 [facility] [address] [id number] [address]- 4414 15 Jan, 2014 [facility] [facility] [address] [id number] [place] [address]- 7151 14 Jan, 2014 [facility] [place] [address] [id number] [place] [address]- 2655 14 Jan, 2014 [facility] [place] [address] [id number] [place] [address]- 2002 13 Jan, 2014 [facility] [place] [address] [id number] [place] [address]- 3567 13 Jan, 2014 [facility] [place] [facility] [address] [id number] [place] [address]- 8957 13 Jan, 2014 [facility] [place] [facility] [address] [id number] [place] [address]- 9446 13 Jan, 2014 [facility] [place] [facility] [address] [id number] [place] [address]- 0155 10 Jan, 2014 [facility] [place] [facility] [address] [id number] [place] [address]- 7057 02 Jan, 2014 [facility] [place] [facility] [address] [id number] [place] [address]- 2348 02 Jan, 2014 [facility] [place] [facility] [address] [id number] [place] [address]- 4067 25 Dec, 2013 [facility] [place] [facility] [address] [id number] [place] [address]- 3785 25 Sep, 2013 [facility] [place] [facility] [address] [id number] [place] [address]- 2549 23 Sep, 2013 [facility] [place] [facility] [address] [id number] [place] [address]- 254 23 Sep, 2013 [facility] [place] [facility] [address] [id number] [place] [address]- 2543 19 Sep, 2013 [facility] [place] [facility] [address] [id number] [place] [address]- 2542 19 Sep, 2013 [facility] [place] [facility] [address] [id number] [place] [address]- 0024 17 Sep, 2013 [facility] [place] [facility] [address] [id number] [place] [address]- 3419 17 Dec, 2013 [facility] [place] [facility] [address] [id number] [place] [address]- 6338 Dec, 2013 [facility] [place] [facility] [address] [id number] [place] [address]- 1752 Dec, 2013 [facility] [place] [facility] [address] [id number] [place] [address]- 8059 08 Dec, 2013 [facility] [place] [facility] [address] [id number] [place] [address]- 4285 08 Dec, 2013 [facility] [place] [facility] [address] [id number] [place] [address]- 0542 Dec, 2013 [facility] [place] [facility] [address] [id number] [place] [address]- 5572 Dec, 2013 [facility] [place] [facility] [address] [id number] [place] [address]- 4156 Dec, 2013 [facility] [place] [facility] [address] [id number] [place] [address]- 1488 Dec, 2013 [facility] [place] [facility] [address] [id number] [place] [address]- 5729 Dec, 2013 [facility] [place] [facility] [address] [id number] [place] [address]- 5420 Dec, 2013 [facility] [place] [facility] [address] [id number] [place] [address]- 2903 Nov, [facility] [place] [facility] [address] [id number] [place] [address]- 9233 Nov, [facility] [place] [facility] [address] [id number] [place] [address]- 7735 Nov, [facility] [place] [facility] [address] [id number] [place] [address]- 1295 Nov, [facility] [place] [facility] [address] [id number] [place] [address]- 5330 Nov, [facility] [place] [facility] [address] [id number] [place] [address]- 8432 Nov, [facility] [place] [facility] [address] [id number] [place] [address]- 7792 Nov, [facility] [place] [facility] [address] [id number] [place] [address]- 5638 Nov, [facility] [place] [facility] [address] [id number] [place] [address]- 7721 Nov, [facility] [place] [facility] [address] [id number] [place] [address]- 6359 Nov, [facility] [place] [facility] [address] [id number] [place] [address]- 6557 Nov, [facility] [place] [facility] [address] [id number] [place] [address]- 4636 Nov, [facility] [place] [facility] [address] [id number] [place] [address]- 7849 Oct, [facility] [place] [facility] [address] [id number] [place] [address]- 0172 Oct, [facility] [place] [facility] [address] [id number] [place] [address]- 9387 Oct, [facility] [place] [facility] [address] [id number] [place] [address]- 5014 Oct, [facility] [place] [facility] [address] [id number] [place] [address]- 6426 Oct, [facility] [place] [facility] [address] [id number] [place] [address]- 0804 Oct, [facility] [place] [facility] [address] [id number] [place] [address]- 0363 Oct, [facility] [place] [facility] [address] [id number] [place] [address]- 8768 Oct, [facility] [place] [facility] [address] [id number] [place] [address]- 6079 22 Oct, 2013 [facility] [place] [facility] [address] [id number] [place] [address]- 8970 22 Oct, 2013 [facility] [place] [facility] [address] [id number] [place] [address]- 8248 16 Oct, 2013 [facility] [place] [facility] [address] [id number] [place] [address] 16 Oct, 2013 [facility] [place] [facility] [address] [id number] [place] [address] 14 Oct, 2013 [facility] [place] [facility] [address] [id number] [place] [address] 14 Oct, 2013 [facility] [place] [facility] [address] [id number] [place] [address] 13 Oct, 2013 [facility] [place] [facility] [address] [id number] [place] [address] 80[address] 13 Oct, 2013 [facility] [place] [facility] [address] [id number] [place] [address]- [address] 2013 [facility] [place] [facility] [address] [id number] [place] [address]- 2485 27 Sep, 2013 [facility] [place] [facility] [address] [id number] [place] [address] 9360 27 Sep, 2013 [facility] [place] [facility] [address] [id number] [place] [address] 67[address] 20 Sep, 2013 [facility] [place] [facility] [address] [id number] [place] [address]- 1619 20 Sep, 2013 [facility] [place] [facility] [address] [id number] [place] [address]- 7220 18 Sep, 2013 [facility] [place] [facility] [address] [id number] [place] [address]- 8466 18 Sep, 2013 [facility] [place] [facility] [address] [id number] [place] [address] Sep, [facility] [place] [facility] [address] [id number] [place] [address]- 5973 17 Sep, 2013 [facility] [place] [facility] [address] [id number] [place] [address]- [address] Sep, [facility] [place] [facility] [address] [id number] [place] [address]- 6209 Sep, [facility] [place] [facility] [address] [id number] [place] [address]- 8545 Sep, [facility] [place] [facility] [address] [id number] [place] [address]- [address] Sep, [facility] [place] [facility] [address] [id number] [place] [address]- [address] Sep, [facility] [place] [facility] [address] [id number] [place] [address]- 1826 Sep, [facility] [place] [facility] [address] [id number] [place] [address]- 8768 Sep, [facility] [place] [facility] [address] [id number] [place] [address]- 7884 Sep, [facility] [place] [facility] [address] [id number] [place] [address]- 407[address] Sep, [facility] [place] [facility] [address] [id number] [place] [address]- 2028 Sep, [facility] [place] [facility] [address] [id number] [place] [address]- 5489 Sep, [facility] [place] [facility] [address] [id number] [place] [address]- 5609 Sep, [facility] [place] [facility] [address] [id number] [place] [address]- 4161 Sep, [facility] [place] [facility] [address] [id number] [place] [address]- 7680 Sep, [facility] [place] [facility] [address] [id number] [place] [address]- 2039 August, [facility] [address] [id number] [place] [address] 8[address] August, [facility] [place] [facility] [address] [id number] [place] [address]- 1584 August, [facility] [address] [id number] [place] [address]- 1680 August, [facility] [place] [facility] [address] [id number] [place] [address]- 99[address] August, [facility] [address] [id number] [place] [address]- 2384 August, [facility] [place] [facility] [address] [id number] [place] [address]- 1849 August, [facility] [address] [id number] [place] [address]- 5972 August, [facility] [address] [id number] [place] [address]- 0667 August, [facility] [address] [id number] [place] [address]- 8117 August, [facility] [place] [facility] [address] [id number] [place] [address]- 4298 August, [facility] [place] [facility] [address] [id number] [place] [address]- 8037 Jul, [facility] [place] [facility] [address] [id number] [place] [address]- 1316 Jul, [facility] [place] [facility] [address] [id number] [place] [address]- 2583 Jul, [facility] [place] [facility] [address] [id number] [place] [address]- 7192 Jul, [facility] [place] [facility] [address] [id number] [place] [address]- 5368 Jul, [facility] [place] [facility] [address] [id number] [place] [address]- 6149 23 Jul, 2013 [facility] [place] [facility] [address] [id number] [place] [address]- 4780 Jul, [facility] [place] [facility] [address] [id number] [place] [address]- 1061 Jul, [facility] [place] [facility] [address] [id number] [place] [address]- 7799 18 Jul, 2013 [facility] [place] [facility] [address] [id number] [place] [address]- 7231 18 Jul, 2013 [facility] [place] [facility] [address] [id number] [place] [address]- 0342 16 Jul, 2013 [facility] [place] [facility] [address] [id number] [place] [address]- 8988 14 Jul, 2013 [facility] [place] [facility] [address] [id number] [place] [address]- 0200 14 Jul, 2013 [facility] [place] [facility] [address] [id number] [place] [address]- 0261 Jul, [facility] [place] [facility] [address] [id number] [place] [address]- 9854 11 Jul, 2013 [facility] [place] [facility] [address] [id number] [place] [address]- 3333 10 Jul, 2013 [facility] [place] [facility] [address] [id number] [place] [address]- 2958 10 Jul, 2013 [facility] [place] [facility] [address] [id number] [place] [address]- 6259 05 Jul, 2013 [facility] [place] [facility] [address] [id number] [place] [address]- 5077 05 Jul, 2013 [facility] [place] [facility] [address] [id number] [place] [address]- 1750 02 Jul, 2013 [facility] [place] [facility] [address] [id number] [place] [address]- 4804 Jul, [facility] [place] [facility] [address] [id number] [place] [address]- 7689 Jul, [facility] [place] [facility] [address] [id number] [place] [address]- 3286 Jul, [facility] [place] [facility] [address] [id number] [place] [address]- 3629 Jun, [facility] [place] [facility] [address] [id number] [place] [address]- 7582 Jun, [facility] [place] [facility] [address] [id number] [place] [address]- 6259 Jun, [facility] [place] [facility] [address] [id number] [place] [address]- 4427 Jun, [facility] [place] [facility] [address] [id number] [place] [address]- 3293 Jun, [facility] [place] [facility] [address] [id number] [place] [address]- 0894 Jun, [facility] [place] [facility] [address] [id number] [place] [address]- 4197 Jun, [facility] [place] [facility] [address] [id number] [place] [address]- 4329 Jun, [facility] [place] [facility] [address] [id number] [place] [address]- 5445 Jun, [facility] [place] [facility] [address] [id number] [address]645 Jun, [facility] [place] [facility] [address] [id number] [place] [address] Jun, [facility] [place] [facility] [address] [id number] [place] [address] Jun, [facility] [place] [facility] [address] [id number] [place] [address] 67[address] 18 May, 2013 [facility] [place] [facility] [address] [id number] [place] [address] 2089 May, [facility] [address] [id number] [place] [address] 0437 Apr, [facility] [address] [id number] [place] [address] 2372 Apr, [facility] [address] [id number] [place] [address]- 5244 Apr, [facility] [address] [id number] [place] [address] 5850 Apr, [facility] [address] [id number] [place] [address] 4606 Apr, [facility] [address] [id number] [place] [address]- 9807 Apr, [facility] [address] [id number] [place] [address] 9933 Apr, [facility] [address] [id number] [place] [address] 2350 Apr, [facility] [address] [id number] [place] [address]- 9298 Apr, [facility] [address] [id number] [place] [address] 0461 Apr, [facility] [address] [id number] [place] [address]- 6638 Apr, [facility] [address] [id number] [place] [address] 4239 Mar, [facility] [place] [facility] [address] [id number] [place] [address]- 6227 Mar, [facility] [address] [id number] [place] [address]- 2551 Mar, [facility] [address] [id number] [place] [address]- 6573 Mar, [facility] [place] [facility] [address] [id number] [place] [address]- 0224 Feb, [facility] [place] [facility] [address] [id number] [place] [address]- 7528 Feb, [facility] [place] [facility] [address] [id number] [address] 279[address] Feb, [facility] [place] [facility] [address] [id number] [address] 9900 Feb, [facility] [place] [facility] [address] [id number] [place] [address]- 8504 Feb, [facility] [place] [facility] [address] [id number] [address] 0915 Feb, [facility] [place] [facility] [address] [id number] [address]- 2186 Feb, [facility] [place] [facility] [address] [id number] [address] 2762 Feb, [facility] [place] [facility] [address] [id number] [address] 1851 Feb, [facility] [place] [facility] [address] [facility] [id number] [address]- 9847 Feb, [facility] [place] [facility] [address] [id number] [address]- 7874 Feb, [facility] [place] [facility] [address] [id number] [address]- 6295 Jan, [facility] [place] [facility] [address] [id number] [address] 54[address] Jan, [facility] [place] [facility] [address] [id number] [address]- 2346 Jan, [facility] [place] [facility] [address] [facility] [id number] [address]- 0066 Jan, [facility] [place] [facility] [address] [id number] [address]- 0210 10 Jan, 2013 [facility] [address] [id number] [place] [address]- 8704 10 Jan, 2013 [facility] [place] [facility] [address] [id number] [place] [address]- 9960 03 Jan, 2013 [facility] [place] [facility] [address] [id number] [place] [address]- 6587 02 Jan, 2013 [facility] [place] [facility] [address] [id number] [place] [address]- 1583 30 Dec, 2012 [facility] [place] [facility] [address] [id number] [place] [address]- 0466 25 Dec, 2012 [facility] [place] [facility] [address] [id number] [place] [address]- 7800 18 Dec, 2012 [facility] [place] [facility] [address] [id number] [place] [address]- 5738 17 Dec, 2012 [facility] [place] [facility] [address] [id number] [place] [address]- 1864 17 Dec, 2012 [facility] [place] [facility] [address] [id number] [place] [address]- 6943 16 Dec, 2012 [facility] [place] [facility] [address] [id number] [place] [address]- 4145 13 Dec, 2012 [facility] [place] [facility] [address] [id number] [place] [address]- 6687 11 Dec, 2012 [facility] [place] [facility] [address] [id number] [place] [address]- 2542 05 Dec, 2012 [facility] [place] [facility] [address] [id number] [place] [address]- 4184 04 Dec, 2012 [facility] [place] [facility] [address] [id number] [place] [address]- 3958 30 Nov, 2012 [facility] [place] [facility] [address] [id number] [place] [address]- 9308 29 Nov, 2012 [facility] [place] [facility] [address] [id number] [place] [address]- 8033 22 Nov, 2012 [facility] [place] [facility] [address] [id number] [place] [address]- 0648 16 Nov, 2012 [facility] [place] [facility] [address] [id number] [place] [address]- 5476 14 Nov, 2012 [facility] [place] [facility] [address] [id number] [place] [address]- 3378 Nov, [facility] [place] [facility] [address] [id number] [place] [address]- 2335 05 Nov, 2012 [facility] [place] [facility] [address] [id number] [place] [address]- 7081 Oct, [facility] [place] [facility] [address] [id number] [place] [address]- 1456 Oct, [facility] [place] [facility] [address] [id number] [place] [address]- 3199 Oct, [facility] [place] [facility] [address] [id number] [place] [address]- 4131 Oct, [facility] [place] [facility] [address] [id number] [place] [address]- 1751 Oct, [facility] [place] [facility] [address] [id number] [place] [address]- 4394 Oct, [facility] [place] [facility] [address] [id number] [place] [address]- 7345 Sep, [facility] [place] [facility] [address] [id number] [place] [address]- 2519 28 Sep, 2012 [facility] [place] [facility] [address] [id number] [place] [address]- 9298 27 Sep, 2012 [facility] [place] [facility] [address] [id number] [place] [address]- 9799 14 Sep, 2012 [facility] [place] [facility] [address] [id number] [place] [address]- 9472 Sep, [facility] [address] [id number] [place] [address]- 4021 Sep, [facility] [address] [id number] [place] [address]- 1846 Sep, [facility] [address] [id number] [place] [address]- 1176 Sep, [facility] [address] [id number] [place] [address]- 2753 Sep, [facility] [address] [id number] [place] [address]- 5002 August, [facility] [address] [id number] [place] [address]- 4324 August, [facility] [address] [id number] [place] [address]- 8698 August, [facility] [address] [id number] [place] [address]- 7228 August, [facility] [address] [id number] [place] [address]- 9280 August, [facility] [address] [id number] [place] [address]- 2307 August, [facility] [address] [id number] [place] [address]- 3294 August, [facility] [address] [id number] [place] [address]- 9885 August, [facility] [address] [id number] [place] [address]- 8968 Jul, [facility] [address] [id number] [place] [address]- 9761 Jul, [facility] [address] [place] [id number] Jul [facility] [address] [id number] [place] [address]- 2006 Jun, [facility] [address] [id number] [place] [address]- 7067 Jun, [facility] [address] [id number] [place] [address]- 6281 Jun, [facility] [address] [facility] [id number] [place] [address]- 9968 Jun, [facility] [address] [id number] [place] [address]- 9494 Jun, [facility] [address] [id number] [place] [address]- 9172 Jun, [facility] [address] [id number] [place] [address]- 0753 May, [facility] [address] [facility] [id number] [place] [address]- 1294 May, [facility] [address] [id number] [place] [address]- 1252 May, [facility] [address] [id number] [place] [address]- 2990 May, [facility] [address] [facility] [id number] [place] [address]- 7917 May, [facility] [address] [id number] [address]- 1390 Apr, [facility] [place] [facility] [address] [id number] [address]- 6365 Apr, [facility] [place] [facility] [address] [id number] [place] [address]- 2302 Apr, [facility] [place] [facility] [address] [id number] [address]- 9872 Apr, [facility] [place] [facility] [address] [facility] [id number] [address]- 1278 Apr, [facility] [place] [facility] [address] [id number] [place] [address]- 0707 Apr, [facility] [place] [facility] [address] [id number] [place] [address]- 7486 Mar, [facility] [place] [facility] [address] [id number] [place] [address] 2546 Mar, [facility] [place] [facility] [address] [id number] [place] [address]- 4806 Mar, [facility] [place] [facility] [address] [id number] [place] [address]- 3757 Mar, [facility] [place] [facility] [address] [id number] [place] [address]- 7416 Mar, [facility] [place] [facility] [address] [id number] [place] [address]- 4953 Mar, [facility] [place] [facility] [address] [id number] [place] [address]- 9019 Mar, [facility] [place] [facility] [address] [id number] [place] [address]- 6075 Mar, [facility] [place] [facility] [address] [id number] [place] [address]- 7305 Mar, [facility] [place] [facility] [address] [id number] [place] [address] Mar, [facility] [place] [facility] [address] [id number] [place] [address]- 5248 Mar, [facility] [place] [facility] [address] [id number] [place] [address]- 5647 Feb, [facility] [place] [facility] [address] [id number] [place] [address]- 9086 Feb, [facility] [place] [facility] [address] [id number] [place] [address]- 3596 Feb, [facility] [place] [facility] [address] [id number] [place] [address]- 1870 Feb, [facility] [place] [facility] [address] [id number] [place] [address]- 8410 Feb, [facility] [place] [facility] [address] [id number] [place] [address]- 7571 Feb, [facility] [place] [facility] [address] [facility] [id number] [place] [address] Feb, [facility] [place] [facility] [address] [id number] [place] [address], [place] [address]- 2476 Feb, [facility] [place] [facility] [address] [id number] [place] [address]- 1698 Feb, [facility] [place] [facility] [address] [id number] [place] [address], [place] [address]- 4966 Feb, [facility] [place] [facility] [address] [facility] [id number] [place] [address]- 4220 Feb, [facility] [place] [facility] [address] [id number] [address]- 5457 Jan, [facility] [place] [facility] [address] [id number] [address]- 5310 Jan, [facility] [place] [facility] [address] [facility] [id number] [address]- 3067 Jan, [facility] [place] [facility] [address] [id number] [address]- 3602 Jan, [facility] [place] [facility] [address] [id number] [address]- 9001 Jan, [facility] [place] [facility] [address] [id number] [address]- 0469 Jan, [facility] [place] [facility] [address] [facility] [id number] [address]- 6840 Jan, [facility] [place] [facility] [address] [facility] [id number] [address]- 2425 24 Dec, 2011 [facility] [place] [facility] [address] [id number] [place] [address]- 1943 17 Dec, 2011 [facility] [place] [facility] [address] [id number] [place] [address]- 7626 13 Dec, 2011 [facility] [place] [facility] [address] [id number] [place] [address]- 4486 12 Dec, 2011 [facility] [place] [facility] [address] [id number] [place] [address]- 9346 23 Nov, 2011 [facility] [place] [facility] [address] [id number] [place] [address] 2546 20 Nov, 2011 [facility] [place] [facility] [address] [id number] [place] [address]- 3011 17 Nov, 2011 [facility] [place] [facility] [address] [id number] [place] [address]- 5520 15 Nov, 2011 [facility] [place] [facility] [address] [id number] [place] [address]- 2318 14 Nov, 2011 [facility] [place] [facility] [address] [id number] [place] [address]- 8686 Nov, [facility] [place] [facility] [address] [id number] [place] [address]- 9014 Nov, [facility] [place] [facility] [address] [id number] [place] [address]- 2787 Nov, [facility] [place] [facility] [address] [id number] [place] [address]- 2856 Nov, [facility] [place] [facility] [address] [id number] [place] [address]- 2540 Nov, [facility] [place] [facility] [address] [id number] [place] [address]- 6751 Nov, [facility] [place] [facility] [address] [id number] [place] [address]- 1716 Nov, [facility] [place] [facility] [address] [id number] [place] [address]- 8588 Nov, [facility] [place] [facility] [address] [id number] [place] [address]- 5760 Oct, [facility] [place] [facility] [address] [id number] [place] [address]- 9114 Oct, [facility] [place] [facility] [address] [id number] [place] [address]- 1831 Oct, [facility] [place] [facility] [address] [id number] [place] [address]- 0525 Oct, [facility] [place] [facility] [address] [id number] [place] [address]- 2543 Oct, [facility] [place] [facility] [address] [id number] [place] [address]- 6461 Oct, [facility] [place] [facility] [address] [id number] [place] [address]- 1385 Oct, [facility] [place] [facility] [address] [id number] [place] [address]- 4659 Oct, [facility] [place] [facility] [address] [id number] [place] [address]- 9385 Oct, [facility] [place] [facility] [address] [id number] [place] [address]- 5617 Sep, [facility] [place] [facility] [address] [id number] [place] [address]- 1278 Sep, [facility] [place] [facility] [address] [id number] [place] [address]- 6126 Sep, [facility] [place] [facility] [address] [id number] [place] [address]- 7406 Sep, [facility] [place] [facility] [address] [id number] [place] [address]- 8629 Sep, [facility] [place] [facility] [address] [id number] [place] [address]- 2032 Sep, [facility] [place] [facility] [address] [id number] [address]- 2546 Sep, [facility] [address] [facility] [id number] [address]- 5336 Sep, [facility] [address] [facility] [id number] [address]- 1336 August, [facility] [id number] [address]- 2306 August, [facility] [address] [facility] [id number] [address]- 8579 August, [facility] [address] [facility] [id number] [address]- 7174 August, [facility] [address] [id number], [place] [address]- 9933 August, [facility] [id number], [place] [address]- 0739 August, [facility] [id number] [address]- [address] August, [facility] [id number], [place] [address]- 6556 August, [facility] [id number] [address] 9375 August, [facility] [address]00565100[place], [place] [address]- 7873 August, [facility] [address] [id number], [place] [address]- 0914 August, [facility] [address] [id number], [place] [address]- 4309 August, [facility] [id number], [place] [address]- 1617 Oct, IMMUNIZATIONS No Known Immunizations SOCIAL HISTORY Never Assessed REASON FOR VISIT Controlled refill PLAN OF CARE VITAL SIGNS MEDICATIONS Medication Instructions Dosage Frequency Start Date End Date Duration Status Lyrica 150 MG Orally twice a day 2 capsules 12h 30 days Active Lasix 40 mg Orally Once a day 1 tablet 24h 30 days Active RESULTS No Results PROCEDURES [...] Surgical History bladder surgery Hospitalization History [facility] for right groin pain 05/2011 Hospitalization History Via [facility] for wound on buttocks 08/2012 Hospitalization History Via [facility], hypoxia secondary to pneumonia 12/02-12/09 Hospitalization History Pneumonia, elevated CO2 on Bipap was in ICU 08/2013 Hospitalization History Hypoxia, Exacerbation COPD, Chest pain 09/05/15 Hospitalization History suicidal ideations-[facility] 12/28 Hospitalization History hypoxia--[facility] 02/13/2016 Hospitalization History shortness of breath at june 2016 Hospitalization History Shortness of breath at august 2016 Hospitalization History SOB, chest pain at 12/2016
--- OUTSIDE RECORDS SUMMARY | 2017-11-24 18:33 | XMS REPORT ---
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 [id number] [address]- 2290 Feb, [facility] [id number] [address]- 0347 Feb, [facility] [id number] [address]- 4283 Jan, Unspecified mood [affective] disorder F39 [facility] [address] [id number] [id number] Jan, Encounter for dental examination Z01.20 [facility] [id number] [address]- 5609 Jan, [facility] [id number] [place] [address] 61358- 4552 Jan, [facility] [address] 28681- 2221 Jan, [facility] [id number] [place] [address] 76324- 2323 Jan, [facility] [address] 40299- 4613 Jan, [facility] [id number] [place] [address] 74179- 0273 Jan, Abdominal abscess K65.1 and Dental caries K02.9 [facility] [id number] [place] [address] 10334- 4750 Jan, [facility] [address] 51382- 1506 30 Dec, 2014 Diabetes with neurological manifestations, type II or unspecified type, not stated as uncontrolled 250.60 ; Essential hypertension, benign 401.1 ; Concussion 850.9 and Skin texture changes 782.8 [facility] [id number] [place] [address] 62791- 1152 Dec, [facility] [id number] [place] [address] 95271- 4519 24 Dec, 2014 [facility] [id number] [place] [address] 83545- 4046 22 Dec, 2014 [facility] [id number] [place] [address] 30979- 9022 21 Dec, 2014 [facility] [address] 43441- 2434 17 Dec, 2014 Affective disorder 296.90 [facility] [id number] [place] [address] 14839- 9540 14 Dec, 2014 [facility] [address] 50456- 7419 Dec, Affective disorder 296.90 [facility] [address] [address] 2546 Dec, 2014 [facility] [id number] [address] 2546 Dec, 2014 [facility] [id number] [address] 2546 Dec, 2014 [facility] [id number] [place] [address] 12395 2541 Dec, 2014 [facility] [address] [address]- 4100 Nov, Affective disorder 296.90 [facility] [address] [address] 2548 Nov, [facility] [id number] [place] [address] 16984- 0535 Nov, Affective disorder 296.90 [facility] [id number] [address] 2543 Nov, Diarrhea 787.91 [facility] [id number] [address] 2549 Nov, [facility] [address] [address] 254 Nov, Diarrhea 787.91 [facility] [address] [address] 2546 Nov, Diarrhea 787.91 and Hyperlipidemia 272.4 [facility] [id number] [address] 2546 Nov, Diarrhea 787.91 [facility] [address] [address] 2546 Nov, Affective disorder 296.90 [facility] [id number] [address] 2546 Nov, Affective disorder 296.90 [facility] [address] [address]- 7810 Nov, Affective disorder 296.90 [facility] [address] [address]- 7042 Nov, [facility] [id number] [address]- 1152 Nov, [facility] [id number] [place] [address] 61254- 5844 Nov, [facility] [address] [address]- 2326 Nov, Episodic mood disorder 296.90 [facility] [address] [address]- 1842 Nov, [facility] [id number] [place] [address] 06551- 9695 Nov, [facility] [id number] [address]- 3382 Nov, [facility] [id number] [address]- 3115 Nov, [facility] [id number] [address]- 4409 Nov, [facility] [address] [address]- 9093 Nov, Lymphedema 457.1 ; Hyperlipidemia 272.4 ; Essential hypertension, benign 401.1 and Numbness of toes 782.0 [facility] [address] [address]- 5222 Nov, Episodic mood disorder 296.90 [facility] [address] [address]- 3513 Oct, [facility] [id number] [address]- 5502 Oct, [facility] [address] [facility] [id number] [place] [address]- 6054 15 Oct, 2014 [facility] [address] [facility] [id number] [place] [address]- 2434 Oct, 2014 [facility] [address] [facility] [id number] [place] [address]- 8433 14 Oct, 2014 [facility] [address] [facility] [id number] [place] [address]- 2786 Oct, 2014 [facility] [address] [facility] [id number] [place] [address]- 3650 Oct, 2014 [facility] [address] [facility] [id number] [place] [address]- 0407 Oct, 2014 [facility] [address] [facility] [id number] [place] [address]- 2467 Oct, Episodic mood disorder 296.90 [facility] [id number] [address]- 0050 Sep, [facility] [place] [facility] [address] [facility] [id number] [place] [address]- 5403 Sep, [facility] [address] [facility] [id number] [place] [address]- 6571 Sep, [facility] [address] [facility] [id number] [place] [address]- 5666 Sep, [facility] [address] [facility] [id number] [place] [address]- 9532 Sep, [facility] [place] [facility] [address] [facility] [id number] [place] [address]- 6653 Sep, Episodic mood disorder 296.90 [facility] [address] [facility] [id number] [place] [address]- 5680 Sep, Unspecified episodic mood disorder 296.90 [facility] [address] [facility] [id number] [place] [address]- 9275 Sep, [facility] [address] [address]- 8186 Sep, [facility] [id number] [place] [address] 80812- 8283 Sep, Episodic mood disorder 296.90 [facility] [address] [address]- 5693 Sep, [facility] [id number] [place] [address] 25173- 5148 Sep, [facility] [id number] [place] [address] 00634- 5794 Sep, [facility] [id number] [place] [address] 55282- 3276 Sep, Hematemesis 578.0 and Vomiting 787.03 [facility] [id number] [place] [address] 07719- 5196 Sep, Episodic mood disorder 296.90 [facility] [address] [address]- 3478 Sep, [facility] [id number] [place] [address] 07023- 9789 Sep, [facility] [address] [address]- 4474 Sep, Diabetes mellitus without mention of complication, type II or unspecified type, not stated as uncontrolled 250.00 and Other chronic pain 338.29 [facility] [address] [address]- 8177 05 Sep, 2014 Episodic mood disorder 296.90 [facility] [address] [address]- 8468 Sep, [facility] [address] [address]- 6043 Sep, Episodic mood disorder 296.90 [facility] [address] [address]- 2546 Sep, [facility] [address] [facility] [id number] [place] [address]- 2094 August, [facility] [address] [facility] [id number] [address]- 3365 August, [facility] [address] [address]- 8704 August, Episodic mood disorder 296.90 [facility] [address] [facility] [id number] [place] [address]- 6322 August, [facility] [id number] [place] [address] 45986- 5024 August, Unspecified episodic mood disorder 296.90 [facility] [address] [address]- 5184 August, Vomiting 787.03 [facility] [address] [address]- 5745 August, [facility] [id number] [address]- 8160 August, [facility] [address] [address]- 4213 August, [facility] [id number] [address]- 7054 August, [facility] [id number] [address]- 4738 August, [facility] [id number] [address] Jul, [facility] [address] [facility] [id number] [address] Jul, [facility] [address] [facility] [id number] [address] Jul, [facility] [id number] [address] 30 Jun, 2014 [facility] [place] [facility] [address] [id number] [place] [address] Jun, [facility] [place] [facility] [address] [id number] [place] [address] Jun, [facility] [place] [facility] [address] [id number] [place] [address] Jun, [facility] [place] [facility] [address] [id number] [place] [address] Jun, [facility] [place] [facility] [address] [id number] [place] [address] Jun, [facility] [place] [facility] [address] [id number] [place] [address] Jun, [facility] [place] [facility] [address] [id number] [place] [address] Jun, [facility] [place] [facility] [address] [id number] [place] [address] Jun, [facility] [place] [facility] [address] [id number] [place] [address] Jun, [facility] [place] [facility] [address] [id number] [place] [address] Jun, [facility] [place] [facility] [address] [id number] [place] [address] Jun, [facility] [place] [facility] [address] [id number] [place] [address]- [address] Jun, [facility] [place] [facility] [address] [id number] [place] [address] Jun, [facility] [place] [facility] [address] [id number] [place] [address]- [address] Jun, [facility] [place] [facility] [address] [id number] [place] [address]- [address] Jun, [facility] [place] [facility] [address] [id number] [place] [address] 23 Jun, 2014 [facility] [address] [id number] [place] [address] 23 Jun, 2014 [facility] [place] [facility] [address] [id number] [place] [address]- [address] 23 Jun, 2014 [facility] [place] [facility] [address] [id number] [place] [address]- [address] 21 Jun, 2014 [facility] [place] [facility] [address] [id number] [place] [address]- [address] 21 Jun, 2014 [facility] [place] [facility] [address] [id number] [place] [address]- [address] 20 Jun, 2014 [facility] [place] [facility] [address] [id number] [place] [address]- [address] 20 Jun, 2014 [facility] [place] [facility] [address] [id number] [place] [address]- [address] 20 Jun, 2014 [facility] [place] [facility] [address] [id number] [place] [address]- [address] 20 Jun, 2014 [facility] [place] [facility] [address] [id number] [place] [address] 19 Jun, 2014 [facility] [place] [facility] [address] [id number] [place] [address]- [address]67 19 Jun, 2014 [facility] [place] [facility] [address] [id number] [place] [address]- [address] 18 Jun, 2014 [facility] [place] [facility] [address] [id number] [place] [address]- [address] 18 Jun, 2014 [facility] [place] [facility] [address] [id number] [place] [address] 17 Jun, 2014 [facility] [place] [facility] [address] [id number] [place] [address]- [address] 17 Jun, 2014 [facility] [place] [facility] [address] [id number] [place] [address]- [address] 16 Jun, 2014 [facility] [place] [facility] [address] [id number] [place] [address]- 480[address] 16 Jun, 2014 [facility] [place] [facility] [address] [id number] [place] [address]- 9398 16 Jun, 2014 [facility] [place] [facility] [address] [id number] [place] [address]- [address] 16 Jun, 2014 [facility] [place] [facility] [address] [id number] [place] [address]- [address] Jun, 2014 [facility] [place] [facility] [address] [id number] [place] [address]- [address] 16 Jun, 2014 [facility] [place] [facility] [address] [id number] [place] [address]- [address] Jun, 2014 [facility] [place] [facility] [address] [id number] [place] [address]- [address] Jun, 2014 [facility] [place] [facility] [address] [id number] [place] [address]- [address] Jun, [facility] [place] [facility] [address] [id number] [place] [address]- [address] Jun, [facility] [place] [facility] [address] [id number] [place] [address] Jun, [facility] [place] [facility] [address] [id number] [place] [address]34 Jun, 2014 [facility] [place] [facility] [address] [id number] [address] Jun, 2014 [facility] [place] [facility] [address] [id number] [place] [address] 9848 Jun, 2014 [facility] [place] [facility] [address] [id number] [place] [address]- 1535 Jun, 2014 [facility] [place] [facility] [address] [id number] [place] [address] 9213 Jun, 2014 [facility] [place] [facility] [address] [id number] [address] Jun, [facility] [place] [facility] [address] [id number] [place] [address] 7213 Jun, [facility] [place] [facility] [address] [id number] [place] [address]- 2865 Jun, [facility] [place] [facility] [address] [facility] [id number] [place] [address] 3066 Jun, [facility] [place] [facility] [address] [facility] [id number] [place] [address]- 4313 Jun, [facility] [place] [facility] [address] [id number] [place] [address]- 8929 Jun, [facility] [place] [facility] [address] [facility] [id number] [place] [address]- 9496 Jun, [facility] [place] [facility] [address] [facility] [id number] [place] [address]- 9574 Jun, [facility] [place] [facility] [address] [facility] [id number] [place] [address]- 2022 Jun, [facility] [place] [facility] [address] [facility] [id number] [place] [address] 3387 Jun, [facility] [place] [facility] [address] [facility] [id number] [place] [address]- 7032 May, [facility] [place] [facility] [address] [facility] [id number] [place] [address]- 3883 May, 2014 [facility] [place] [facility] [address] [facility] [id number] [address] 1621 May, 2014 [facility] [place] [facility] [address] [id number] [place] [address]- 6120 May, 2014 [facility] [place] [facility] [address] [facility] [id number] [address]- 3852 May, [facility] [place] [facility] [address] [facility] [id number] [address]- 4735 May, [facility] [place] [facility] [address] [id number] [place] [address]- 0382 May, 2014 [facility] [place] [facility] [address] [id number] [place] [address]- 7536 May, 2014 [facility] [place] [facility] [address] [facility] [id number] [place] [address]- 0944 May, 2014 [facility] [place] [facility] [address] [facility] [id number] [place] [address]- 2540 May, 2014 [facility] [place] [facility] [address] [id number] [place] [address]- 1206 May, 2014 [facility] [place] [facility] [address] [facility] [id number] [place] [address]- 4741 May, 2014 [facility] [place] [facility] [address] [facility] [id number] [place] [address]- 9884 May, 2014 [facility] [place] [facility] [address] [facility] [id number] [place] [address]- 0468 May, 2014 [facility] [place] [facility] [address] [facility] [id number] [place] [address]- 7985 May, 2014 [facility] [place] [facility] [address] [facility] [id number] [place] [address]- 8297 May, 2014 [facility] [place] [facility] [address] [facility] [id number] [place] [address]- 5608 May, 2014 [facility] [place] [facility] [address] [facility] [id number] [place] [address]- 2548 May, 2014 [facility] [place] [facility] [address] [facility] [id number] [place] [address]- 5273 May, 2014 [facility] [place] [facility] [address] [facility] [id number] [place] [address]- 2684 May, 2014 [facility] [place] [facility] [address] [facility] [id number] [place] [address]- 1216 05 May, 2014 [facility] [place] [facility] [address] [id number] [place] [address]- 1390 May, 2014 [facility] [place] [facility] [address] [id number] [place] [address]- 0421 May, 2014 [facility] [place] [facility] [address] [id number] [place] [address]- 1469 May, 2014 [facility] [place] [facility] [address] [id number] [place] [address]- 8342 May, 2014 [facility] [place] [facility] [address] [id number] [place] [address]- 7770 May, 2014 [facility] [place] [facility] [address] [id number] [place] [address]- 1047 May, [facility] [place] [facility] [address] [id number] [place] [address]- 8456 Apr, [facility] [place] [facility] [address] [id number] [place] [address]- 0590 Apr, [facility] [place] [facility] [address] [id number] [place] [address]- 9736 Apr, [facility] [place] [facility] [address] [id number] [place] [address]- 6610 Apr, [facility] [place] [facility] [address] [id number] [place] [address]- 7654 Apr, [facility] [place] [facility] [address] [id number] [place] [address]- 7371 Apr, [facility] [place] [facility] [address] [id number] [place] [address]- 7968 Apr, [facility] [place] [facility] [address] [id number] [place] [address]- 2375 Apr, [facility] [place] [facility] [address] [id number] [address]- 6325 Apr, [facility] [place] [facility] [address] [id number] [address]- 0506 Apr, [facility] [place] [facility] [address] [id number] [place] [address]- 7312 Apr, [facility] [place] [facility] [address] [id number] [place] [address]- 2471 Apr, [facility] [place] [facility] [address] [id number] [place] [address]- 5115 Apr, [facility] [place] [facility] [address] [id number] [place] [address]- 2389 Apr, [facility] [place] [facility] [address] [id number] [place] [address]- 1064 Apr, [facility] [place] [facility] [address] [id number] [place] [address]- 2394 Apr, [facility] [place] [facility] [address] [id number] [place] [address]- 3224 Apr, [facility] [place] [facility] [address] [id number] [place] [address]- 6363 Apr, [facility] [place] [facility] [address] [id number] [place] [address]- 0582 Apr, [facility] [place] [facility] [address] [id number] [place] [address]- 9797 Apr, [facility] [place] [facility] [address] [id number] [address]- 1439 Mar, [facility] [place] [facility] [address] [id number] [place] [address]- 6463 Mar, [facility] [place] [facility] [address] [id number] [place] [address]- 7429 Mar, [facility] [place] [facility] [address] [id number] [place] [address]- 3396 Mar, [facility] [place] [facility] [address] [id number] [place] [address]- 6351 Mar, [facility] [place] [facility] [address] [id number] [place] [address]- 2798 23 Mar, 2014 [facility] [place] [facility] [address] [id number] [place] [address]- 7316 Mar, [facility] [place] [facility] [address] [id number] [place] [address] Mar, [facility] [place] [facility] [address] [id number] [place] [address]- 1616 15 Mar, 2014 [facility] [place] [facility] [address] [id number] [place] [address]- 6888 15 Mar, 2014 [facility] [place] [facility] [address] [id number] [place] [address]- 4440 Mar, [facility] [place] [facility] [address] [id number] [place] [address]- 9496 15 Mar, 2014 [facility] [place] [facility] [address] [id number] [place] [address]- 0302 Mar, [facility] [place] [facility] [address] [id number] [place] [address]- 9756 Mar, [facility] [place] [facility] [address] [id number] [place] [address]- 1038 Mar, [facility] [place] [facility] [address] [id number] [place] [address]- 7703 Mar, [facility] [place] [facility] [address] [id number] [place] [address]- 1738 Feb, [facility] [place] [facility] [address] [id number] [place] [address]- 2569 Feb, [facility] [place] [facility] [address] [id number] [place] [address]- 7261 Feb, [facility] [place] [facility] [address] [id number] [place] [address]- 1085 Feb, [facility] [place] [facility] [address] [id number] [place] [address]- 0704 Feb, [facility] [place] [facility] [address] [id number] [place] [address]- 9254 19 Feb, 2014 [facility] [place] [facility] [address] [id number] [place] [address]- 9565 19 Feb, 2014 [facility] [place] [facility] [address] [id number] [place] [address]- 6204 18 Feb, 2014 [facility] [place] [facility] [address] [id number] [place] [address]- 9722 18 Feb, 2014 [facility] [place] [facility] [address] [id number] [place] [address]- 2919 17 Feb, 2014 [facility] [place] [facility] [address] [id number] [place] [address]- 7754 17 Feb, 2014 [facility] [place] [facility] [address] [id number] [place] [address]- 6836 17 Feb, 2014 [facility] [place] [facility] [address] [id number] [place] [address]- 6773 17 Feb, 2014 [facility] [place] [facility] [address] [id number] [place] [address]- 9633 14 Feb, 2014 [facility] [place] [facility] [address] [id number] [place] [address]- 4156 14 Feb, 2014 [facility] [place] [facility] [address] [id number] [place] [address]- 6539 14 Feb, 2014 [facility] [place] [facility] [address] [id number] [place] [address]- 3244 14 Feb, 2014 [facility] [place] [facility] [address] [id number] [place] [address]- 6125 10 Feb, 2014 [facility] [place] [facility] [address] [id number] [place] [address]- 4572 10 Feb, 2014 [facility] [place] [facility] [address] [id number] [place] [address]- 9280 04 Feb, 2014 [facility] [place] [facility] [address] [id number] [place] [address]- 4660 Feb, [facility] [place] [facility] [address] [id number] [place] [address]- 1228 Jan, 2013 [facility] [place] [facility] [address] [id number] [place] [address]- 5573 Jan, [facility] [place] [facility] [address] [id number] [place] [address]- 4092 Jan, [facility] [place] [facility] [address] [id number] [place] [address]- 7537 Jan, [facility] [place] [facility] [address] [id number] [place] [address]- 4896 Jan, [facility] [place] [facility] [address] [id number] [place] [address]- 4624 Jan, [facility] [place] [facility] [address] [id number] [place] [address]- 9964 Jan, [facility] [place] [facility] [address] [id number] [place] [address]- 6309 Jan, [facility] [place] [facility] [address] [id number] [place] [address]- 7508 Jan, [facility] [place] [facility] [address] [id number] [place] [address]- 1025 Jan, [facility] [place] [facility] [address] [id number] [place] [address]- 3925 Jan, [facility] [place] [facility] [address] [id number] [address]- 2176 Jan, 2013 [facility] [place] [facility] [address] [id number] [place] [address]- 7100 Jan, [facility] [place] [facility] [address] [id number] [place] [address]- 5939 17 Jan, 2013 [facility] [place] [facility] [address] [id number] [place] [address]- 9294 15 Jan, 2014 [facility] [place] [facility] [address] [id number] [place] [address]- 9363 15 Jan, 2014 [facility] [place] [facility] [address] [id number] [place] [address]- 7340 14 Jan, 2014 [facility] [place] [facility] [address] [id number] [place] [address]- 0551 14 Jan, 2014 [facility] [place] [facility] [address] [id number] [place] [address]- 5096 Jan, [facility] [place] [facility] [address] [id number] [place] [address]- 1876 Jan, [facility] [place] [facility] [address] [id number] [place] [address]- 9043 Jan, [facility] [place] [facility] [address] [id number] [place] [address]- 8020 Jan, [facility] [place] [facility] [address] [id number] [place] [address]- 8394 10 Jan, 2014 [facility] [place] [facility] [address] [id number] [place] [address]- 7598 Jan, [facility] [place] [facility] [address] [id number] [place] [address]- 0539 02 Jan, 2014 [facility] [place] [facility] [address] [id number] [place] [address]- 0618 25 Dec, 2013 [facility] [place] [facility] [address] [id number] [place] [address]- 6109 25 Dec, 2013 [facility] [place] [facility] [address] [id number] [place] [address]- 4948 23 Dec, 2013 [facility] [place] [facility] [address] [id number] [place] [address]- 6636 23 Dec, 2013 [facility] [place] [facility] [address] [id number] [place] [address]- 8746 19 Dec, 2013 [facility] [place] [facility] [address] [id number] [place] [address]- 1809 19 Dec, 2013 [facility] [place] [facility] [address] [id number] [place] [address]- 0291 17 Sep, 2013 [facility] [place] [facility] [address] [id number] [place] [address]- 5636 17 Dec, 2013 [facility] [place] [facility] [address] [id number] [place] [address]- 4881 09 Sep, 2013 [facility] [place] [facility] [address] [id number] [place] [address]- 8557 09 Sep, 2013 [facility] [place] [facility] [address] [id number] [place] [address]- 4167 08 Sep, 2013 [facility] [place] [facility] [address] [id number] [place] [address]- 4990 08 Dec, 2013 [facility] [place] [facility] [address] [id number] [place] [address]- 6593 Dec, 2013 [facility] [place] [facility] [address] [id number] [place] [address]- 2622 04 Dec, 2013 [facility] [place] [facility] [address] [id number] [place] [address]- 6812 Dec, 2013 [facility] [place] [facility] [address] [id number] [place] [address]- 1189 Dec, 2013 [facility] [place] [facility] [address] [id number] [place] [address]- 8118 Dec, 2013 [facility] [place] [facility] [address] [id number] [address]- 5246 Dec, 2013 [facility] [place] [facility] [address] [id number] [place] [address]- 2046 Nov, [facility] [place] [facility] [address] [id number] [place] [address]- 7473 Nov, [facility] [place] [facility] [address] [id number] [place] [address]- 6452 Nov, [facility] [place] [facility] [address] [id number] [place] [address]- 5810 Nov, [facility] [place] [facility] [address] [id number] [place] [address]- 2581 Nov, [facility] [place] [facility] [address] [id number] [place] [address]- 9715 Nov, [facility] [place] [facility] [address] [id number] [place] [address]- 4925 Nov, [facility] [place] [facility] [address] [id number] [place] [address]- 0616 Nov, [facility] [place] [facility] [address] [id number] [place] [address]- 0438 Nov, [facility] [place] [facility] [address] [id number] [place] [address]- 4440 Nov, [facility] [place] [facility] [address] [id number] [place] [address]- 8050 Nov, [facility] [place] [facility] [address] [id number] [place] [address]- 1414 Nov, [facility] [place] [facility] [address] [id number] [place] [address]- 7753 Oct, [facility] [place] [facility] [address] [id number] [place] [address]- 1616 Oct, [facility] [place] [facility] [address] [id number] [place] [address]- 3777 Oct, [facility] [place] [facility] [address] [id number] [place] [address]- 6249 Oct, [facility] [place] [facility] [address] [id number] [place] [address]- 3509 Oct, [facility] [place] [facility] [address] [id number] [place] [address]- 0682 Oct, [facility] [place] [facility] [address] [id number] [place] [address]- 0052 Oct, [facility] [place] [facility] [address] [id number] [place] [address]- 8366 Oct, [facility] [place] [facility] [address] [id number] [place] [address]- 8797 Oct, [facility] [place] [facility] [address] [id number] [place] [address]- 7809 Oct, [facility] [place] [facility] [address] [id number] [place] [address]- 3484 Oct, [facility] [place] [facility] [address] [id number] [place] [address]- 5019 Oct, [facility] [place] [facility] [address] [id number] [place] [address]- 7455 Oct, [facility] [place] [facility] [address] [id number] [place] [address]- 8854 Oct, [facility] [place] [facility] [address] [id number] [place] [address]- 8197 Oct, [facility] [place] [facility] [address] [id number] [place] [address]- 3003 Oct, [facility] [place] [facility] [address] [id number] [place] [address]- 0574 Oct, [facility] [place] [facility] [address] [id number] [place] [address]- 1174 Sep, [facility] [place] [facility] [address] [id number] [place] [address]- 0284 Sep, [facility] [place] [facility] [address] [id number] [place] [address]- 3550 Sep, [facility] [place] [facility] [address] [id number] [place] [address]- 6091 Sep, [facility] [place] [facility] [address] [id number] [place] [address]- 1476 18 Sep, 2013 [facility] [place] [facility] [address] [id number] [address]- 7190 18 Sep, 2013 [facility] [place] [facility] [address] [id number] [place] [address]- 3611 Sep, [facility] [place] [facility] [address] [id number] [place] [address]- 4087 17 Sep, 2013 [facility] [place] [facility] [address] [id number] [place] [address]- 7774 Sep, [facility] [place] [facility] [address] [id number] [place] [address]- 1007 Sep, [facility] [place] [facility] [address] [id number] [place] [address]- 9131 Sep, [facility] [place] [facility] [address] [id number] [place] [address]- 8925 Sep, [facility] [place] [facility] [address] [id number] [place] [address]- 3928 Sep, [facility] [place] [facility] [address] [id number] [place] [address]- 6075 Sep, [facility] [place] [facility] [address] [id number] [place] [address]- 9786 Sep, [facility] [place] [facility] [address] [id number] [place] [address]- 6702 Sep, [facility] [place] [facility] [address] [id number] [address]- 0328 Sep, [facility] [place] [facility] [address] [id number] [place] [address]- 9296 Sep, [facility] [place] [facility] [address] [id number] [place] [address]- 3942 05 Sep, 2013 [facility] [place] [facility] [address] [id number] [place] [address]- 1689 05 Sep, 2013 [facility] [place] [facility] [address] [id number] [place] [address] 03 Sep, 2013 [facility] [place] [facility] [address] [id number] [place] [address] Sep, [facility] [address] [id number] [place] [address] August, [facility] [place] [facility] [address] [id number] [place] [address] August, [facility] [address] [id number] [place] [address] August, [facility] [place] [facility] [address] [id number] [place] [address] August, [facility] [place] [facility] [address] [id number] [place] [address] August, [facility] [place] [facility] [address] [id number] [place] [address] August, [facility] [place] [facility] [address] [id number] [place] [address] 79[address] August, [facility] [address] [id number] [place] [address] August, [facility] [place] [facility] [address] [id number] [place] [address] August, [facility] [address] [id number] [place] [address] August, [facility] [place] [facility] [address] [id number] [place] [address] August, [facility] [place] [facility] [address] [id number] [place] [address] Jul, [facility] [place] [facility] [address] [id number] [place] [address] Jul, [facility] [place] [facility] [address] [id number] [place] [address] Jul, [facility] [place] [facility] [address] [id number] [place] [address] Jul, [facility] [place] [facility] [address] [id number] [place] [address]- 60[address] Jul, [facility] [place] [facility] [address] [id number] [place] [address]- 2946 Jul, [facility] [place] [facility] [address] [id number] [place] [address]- [address] Jul, [facility] [place] [facility] [address] [id number] [place] [address] 9258 Jul, [facility] [place] [facility] [address] [id number] [place] [address]- [address] Jul, [facility] [place] [facility] [address] [id number] [place] [address]- [address]69 18 Jul, 2013 [facility] [place] [facility] [address] [id number] [place] [address]- [address] 16 Jul, 2013 [facility] [place] [facility] [address] [id number] [place] [address]- [address]29 Jul, [facility] [place] [facility] [address] [id number] [place] [address]- [address] 14 Jul, 2013 [facility] [place] [facility] [address] [id number] [place] [address] 58[address] Jul, [facility] [place] [facility] [address] [id number] [place] [address]- [address] Jul, [facility] [place] [facility] [address] [id number] [place] [address]- [address]208 10 Jul, 2013 [facility] [place] [facility] [address] [id number] [place] [address]- 1684 Jul, [facility] [place] [facility] [address] [id number] [place] [address]- [address] 05 Jul, 2013 [facility] [place] [facility] [address] [id number] [place] [address]386 Jul, [facility] [place] [facility] [address] [id number] [place] [address]- 4488 Jul, [facility] [place] [facility] [address] [id number] [place] [address]- 0193 Jul, [facility] [place] [facility] [address] [id number] [place] [address] Jul, [facility] [place] [facility] [address] [id number] [place] [address]- 378[address] Jul, [facility] [place] [facility] [address] [id number] [place] [address]- 9667 Jun, [facility] [place] [facility] [address] [id number] [place] [address]- 2144 Jun, [facility] [place] [facility] [address] [id number] [place] [address]- 1195 Jun, [facility] [place] [facility] [address] [id number] [place] [address]- 1299 Jun, [facility] [place] [facility] [address] [id number] [place] [address]- 7823 Jun, [facility] [place] [facility] [address] [id number] [place] [address]- 3093 Jun, [facility] [place] [facility] [address] [id number] [place] [address]- 2070 Jun, [facility] [place] [facility] [address] [id number] [place] [address]- 5976 Jun, [facility] [place] [facility] [address] [id number] [place] [address]- 4579 Jun, [facility] [place] [facility] [address] [id number] [place] [address]- 8317 Jun, [facility] [place] [facility] [address] [id number] [place] [address]- 5275 Jun, [facility] [place] [facility] [address] [id number] [place] [address] Jun, [facility] [place] [facility] [address] [id number] [place] [address]- [address]125 May, [facility] [place] [facility] [address] [id number] [place] [address]- 1176 May, [facility] [place] [facility] [address] [id number] [place] [address]- 1721 Apr, [facility] [place] [facility] [address] [id number] [place] [address]- 8952 Apr, [facility] [place] [facility] [address] [id number] [place] [address]- 9842 Apr, [facility] [place] [facility] [address] [id number] [place] [address]- 9451 Apr, [facility] [place] [facility] [address] [id number] [place] [address]- 6645 Apr, [facility] [place] [facility] [address] [id number] [place] [address]- 1452 Apr, [facility] [place] [facility] [address] [id number] [place] [address]- 7120 Apr, [facility] [place] [facility] [address] [id number] [place] [address]- 9959 Apr, [facility] [place] [facility] [address] [id number] [place] [address]- 45[address] Apr, [facility] [place] [facility] [address] [id number] [place] [address]- 5644 Apr, [facility] [place] [facility] [address] [id number] [place] [address]- 0464 Apr, [facility] [place] [facility] [address] [id number] [place] [address]- 6533 Mar, [facility] [place] [facility] [address] [id number] [place] [address]- 1279 Mar, [facility] [place] [facility] [address] [id number] [place] [address]- 8582 Mar, [facility] [place] [facility] [address] [id number] [place] [address]- 0308 Mar, [facility] [place] [facility] [address] [id number] [place] [address]- 5188 Feb, [facility] [place] [facility] [address] [id number] [place] [address]- 1527 Feb, [facility] [place] [facility] [address] [id number] [address] Feb, [facility] [place] [facility] [address] [id number] [place] [address]- 1178 Feb, [facility] [place] [facility] [address] [id number] [place] [address]- 9773 Feb, [facility] [place] [facility] [address] [id number] [address] 8575 Feb, [facility] [place] [facility] [address] [id number] [address] 235[address] Feb, [facility] [place] [facility] [address] [id number] [address]- 6045 Feb, [facility] [place] [facility] [address] [id number] [address]- 4768 Feb, [facility] [place] [facility] [address] [id number] [place] [address]- 3374 Feb, [facility] [place] [facility] [address] [id number] [address]- 7594 Feb, [facility] [place] [facility] [address] [id number] [place] [address] 1406 Jan, [facility] [place] [facility] [address] [id number] [place] [address] Jan, [facility] [place] [facility] [address] [id number] [place] [address] Jan, [facility] [place] [facility] [address] [id number] [place] [address] 11 Jan, 2012 [facility] [address] [id number] [place] [address]107 10 Jan, 2012 [facility] [place] [facility] [address] [id number] [place] [address] 4289 10 Jan, 2012 [facility] [address] [id number] [place] [address]- 4322 03 Jan, 2012 [facility] [place] [facility] [address] [id number] [place] [address] 6666 02 Jan, 2013 [facility] [address] [id number] [place] [address] 2073 30 Dec, 2012 [facility] [place] [facility] [address] [id number] [place] [address]- 5550 25 Dec, 2012 [facility] [place] [facility] [address] [id number] [place] [address]- 5815 18 Dec, 2012 [facility] [address] [id number] [place] [address]- 2742 17 Dec, 2012 [facility] [place] [facility] [address] [id number] [place] [address] 0709 17 Dec, 2012 [facility] [address] [id number] [place] [address]- 1318 16 Sep, 2012 [facility] [place] [facility] [address] [id number] [place] [address]- 254 13 Sep, 2012 [facility] [place] [facility] [address] [id number] [place] [address]- 2548 11 Sep, 2012 [facility] [place] [facility] [address] [id number] [place] [address]- 3211 05 Sep, 2012 [facility] [place] [facility] [address] [id number] [place] [address]- 2548 04 Dec, 2012 [facility] [place] [facility] [address] [id number] [place] [address]- 6203 Nov, [facility] [place] [facility] [address] [id number] [place] [address]- 6488 Nov, [facility] [place] [facility] [address] [id number] [place] [address]- 1843 Nov, [facility] [place] [facility] [address] [id number] [place] [address]- 8667 Nov, [facility] [place] [facility] [address] [id number] [place] [address]- 9833 Nov, [facility] [place] [facility] [address] [id number] [place] [address]- 8877 Nov, [facility] [place] [facility] [address] [id number] [place] [address]- 6205 Nov, [facility] [place] [facility] [address] [id number] [place] [address]- 2307 Oct, [facility] [place] [facility] [address] [id number] [place] [address]- 3598 Oct, [facility] [place] [facility] [address] [id number] [place] [address]- 2067 Oct, [facility] [place] [facility] [address] [id number] [place] [address]- 1254 Oct, [facility] [place] [facility] [address] [id number] [place] [address]- 5303 Oct, [facility] [place] [facility] [address] [id number] [place] [address]- 2977 Oct, [facility] [place] [facility] [address] [id number] [place] [address]- 9503 Sep, [facility] [place] [facility] [address] [id number] [place] [address]- 2405 Sep, [facility] [place] [facility] [address] [id number] [place] [address]- 5284 Sep, [facility] [place] [facility] [address] [id number] [place] [address]- 8450 14 Sep, 2012 [facility] [address] [id number] [place] [address]- 3516 13 Sep, 2012 [facility] [address] [id number] [place] [address]- 9998 10 Sep, 2012 [facility] [address] [id number] [place] [address]- 3041 07 Sep, 2012 [facility] [address] [id number] [place] [address]- 4473 06 Sep, 2012 [facility] [address] [id number] [place] [address]- 2592 05 Sep, 2012 [facility] [address] [id number] [place] [address]- 1052 August, [facility] [address] [id number] [place] [address]- 0889 August, [facility] [address] [id number] [place] [address] 4257 August, [facility] [address] [id number] [place] [address]- 5366 August, [facility] [address] [id number] [place] [address]- 6039 August, [facility] [address] [id number] [place] [address]- 5996 August, [facility] [address] [id number] [place] [address]- 1346 August, [facility] [address] [id number] [place] [address]- 4753 August, [facility] [address] [id number] [place] [address]- 3884 Jul, [facility] [address] [id number] [place] [address] 4231 Jul, [facility] [address] [place] [id number] Jul [facility] [address] [id number] [place] [address] Jun, [facility] [address] [id number] [place] [address]- 1563 Jun, [facility] [address] [id number] [place] [address]- 6640 Jun, [facility] [address] [id number] [place] [address]- 5866 Jun, [facility] [address] [id number] [place] [address]- 8129 Jun, [facility] [address] [id number] [place] [address]- 5964 Jun, [facility] [address] [id number] [place] [address]- 8764 May, [facility] [address] [id number] [place] [address]- 1131 May, [facility] [address] [id number] [place] [address]- 3313 May, [facility] [address] [id number] [place] [address]- 7897 May, [facility] [address] [id number] [place] [address]- 1496 May, [facility] [address] [id number] [place] [address]- 8387 Apr, [facility] [address] [id number] [place] [address]- 9171 Apr, [facility] [address] [id number] [place] [address] 2546 Apr, [facility] [address] [id number] [place] [address]- 8496 Apr, [facility] [address] [id number] [place] [address]- 9591 Apr, [facility] [place] [facility] [address] [id number] [place] [address]- 8426 Apr, [facility] [place] [facility] [address] [id number] [place] [address]- 5366 Mar, [facility] [place] [facility] [address] [id number] [place] [address]- 0229 Mar, [facility] [place] [facility] [address] [id number] [place] [address]- 8220 Mar, [facility] [place] [facility] [address] [id number] [place] [address]- 6117 Mar, [facility] [place] [facility] [address] [id number] [place] [address]- 3114 Mar, [facility] [place] [facility] [address] [id number] [place] [address]- 9178 Mar, [facility] [place] [facility] [address] [id number] [place] [address]- 3675 Mar, [facility] [place] [facility] [address] [id number] [place] [address]- 8904 Mar, [facility] [place] [facility] [address] [id number] [place] [address]- 4074 Mar, [facility] [place] [facility] [address] [id number] [place] [address]- 4306 05 Mar, 2012 [facility] [place] [facility] [address] [id number] [place] [address]- 7786 Mar, [facility] [place] [facility] [address] [id number] [place] [address]- 7746 Feb, [facility] [place] [facility] [address] [id number] [place] [address]- 2236 Feb, [facility] [place] [facility] [address] [id number] [address] 9[address] Feb, [facility] [place] [facility] [address] [id number] [place] [address]- 7596 Feb, [facility] [place] [facility] [address] [id number] [address]- 5887 Feb, [facility] [place] [facility] [address] [id number] [place] [address]- 1177 Feb, [facility] [place] [facility] [address] [id number] [place] [address]- 9635 Feb, [facility] [place] [facility] [address] [id number] [place] [address], [place] [address]- 0724 Feb, [facility] [place] [facility] [address] [id number] [place] [address]- 5862 Feb, [facility] [place] [facility] [address] [facility] [id number] [address]- 4289 Feb, [facility] [place] [facility] [address] [id number] [address]- 9550 Feb, [facility] [place] [facility] [address] [id number] [place] [address]- 4625 Jan, [facility] [place] [facility] [address] [id number] [place] [address]- 2493 Jan, [facility] [place] [facility] [address] [id number] [place] [address]- 8526 Jan, [facility] [place] [facility] [address] [id number] [address]- 8083 Jan, [facility] [place] [facility] [address] [id number] [place] [address]- 1276 Jan, [facility] [place] [facility] [address] [id number] [place] [address]- 6576 Jan, [facility] [place] [facility] [address] [facility] [id number] [place] [address]- 9669 Jan, [facility] [place] [facility] [address] [id number] [place] [address]- 6632 24 Dec, 2011 [facility] [place] [facility] [address] [id number] [place] [address]- 0526 17 Dec, 2011 [facility] [place] [facility] [address] [id number] [place] [address] 2546 13 Dec, 2011 [facility] [place] [facility] [address] [id number] [place] [address]- 5816 12 Dec, 2011 [facility] [place] [facility] [address] [id number] [place] [address] 2547 23 Nov, 2011 [facility] [place] [facility] [address] [id number] [place] [address]- 3363 20 Nov, 2011 [facility] [place] [facility] [address] [id number] [place] [address]- 5392 17 Nov, 2011 [facility] [place] [facility] [address] [id number] [place] [address]- 0194 15 Nov, 2011 [facility] [place] [facility] [address] [id number] [place] [address]- 4144 14 Nov, 2011 [facility] [place] [facility] [address] [id number] [place] [address]- 6377 13 Nov, 2011 [facility] [place] [facility] [address] [id number] [place] [address]- 7927 10 Nov, 2011 [facility] [place] [facility] [address] [id number] [place] [address]- 7338 Nov, [facility] [place] [facility] [address] [id number] [place] [address]- 8079 Nov, [facility] [place] [facility] [address] [id number] [place] [address]- 2542 Nov, [facility] [place] [facility] [address] [id number] [place] [address]- 2540 Nov, [facility] [place] [facility] [address] [id number] [place] [address]- 8868 Nov, [facility] [place] [facility] [address] [id number] [place] [address]- 6037 Nov, [facility] [place] [facility] [address] [id number] [place] [address]- 4632 Oct, [facility] [place] [facility] [address] [id number] [place] [address]- 5766 Oct, [facility] [place] [facility] [address] [id number] [place] [address]- 7189 Oct, [facility] [place] [facility] [address] [id number] [place] [address]- 3319 Oct, [facility] [place] [facility] [address] [id number] [place] [address]- 3689 Oct, [facility] [place] [facility] [address] [id number] [place] [address]- 0433 Oct, [facility] [place] [facility] [address] [id number] [place] [address]- 4134 Oct, [facility] [place] [facility] [address] [id number] [place] [address]- 8992 Oct, [facility] [place] [facility] [address] [id number] [place] [address]- 0134 Oct, [facility] [place] [facility] [address] [id number] [place] [address]- 9633 Sep, [facility] [place] [facility] [address] [id number] [address]- 9296 Sep, [facility] [place] [facility] [address] [id number] [place] [address]- 1639 Sep, [facility] [place] [facility] [address] [id number] [place] [address]- 9650 Sep, [facility] [place] [facility] [address] [id number] [place] [address]- 8977 Sep, [facility] [place] [facility] [address] [id number] [place] [address]- 6606 Sep, [facility] [address] [id number] [place] [address]- 8372 Sep, [facility] [address] [id number] [place] [address]- 4106 Sep, [facility] [address] [id number] [place] [address]- 0724 August, [facility] [address] [id number] [place] [address]- 0144 August, [facility] [address] [id number] [place] [address] August, [facility] [address] [id number] [place] [address]- 7454 August, [facility] [address] [id number] [place] [address]30 August, [facility] [address] [id number] [place] [address]- 8750 August, [facility] [address] [id number] [place] [address]- 5971 August, [facility] [address] [facility] [id number] [place] [address]- 3373 August, [facility] [address] [id number] [place] [address]- 7421 August, [facility] [address] [id number] [place] [address]- 4100 August, [facility] [address] [id number] [place] [address]- 9149 August, [facility] [address] [facility] [id number] [place] [address]- 3554 August, [facility] [address] [id number] [place] [address]- 4208 Oct, IMMUNIZATIONS No Known Immunizations SOCIAL HISTORY Never Assessed REASON FOR VISIT Sore throat--tcuppettRn , Sore throat x 1 week. Now has a cough. PLAN OF CARE Activity Details Follow Up 4 Weeks Reason: VITAL SIGNS Height 63 in 2017-08-04 Weight 373.6 lbs 2017-08-04 Temperature 98.1 degrees Fahrenheit 2017-08-04 Heart Rate 104 bpm 2017-08-04 Respiratory Rate 24 2017-08-04 BMI 66.17 kg/m2 2017-08-04 Blood pressure systolic 126 mmHg 2017-08-04 Blood pressure diastolic 84 mmHg 2017-08-04 MEDICATIONS Medication Instructions Dosage Frequency Start Date End Date Duration Status Atorvastatin Calcium 40 MG Orally Once a day 1 tablet 24h Active Lotrisone 1-0.05 % Externally Twice a day 1 application to affected area 12h Active Cyclobenzaprine HCl 10 MG Orally Three times a day 1 tablet as needed 8h Active Montelukast Sodium 10 MG Orally Once a day 1 tablet in the evening 24h Active Benadryl Allergy 25 MG Orally 2 times a day 1 capsule 12h Active Ondansetron HCl 4 MG Orally 3 times a day 1 tablet as needed 8h Active Augmentin 875-125 MG Orally every 12 hrs 1 tablet 12h Jul, August, 10 day(s) Active Metformin HCl 1000 MG Orally Twice a day 1 tablet with meals 12h Active Guaifenesin 400 MG Orally every 4 hrs 1 tablet as needed 4h May, Active Triamcinolone Acetonide 0.1 % Externally Twice a day 1 application to affected area as needed 12h Active Womens One Daily - Active Lyrica 150 MG Orally twice a day 2 capsules 12h Active Sucralfate 1 GM Orally 4 times a day 1 tablet at bedtime on an empty stomach before meals 6h Active Gemfibrozil 600 MG Orally Twice a day 1 tablet 12h Active Potassium Chloride Eugenia ER 10 MEQ Orally Once a day 1 tablet with food 24h Active Lasix 40 MG Orally Once a day 1 tablet 24h Active Mirtazapine 30 MG Orally Once a day 1 tablet at bedtime 24h May, 30 day(s) Active Ranitidine HCl 150 MG Orally twice a day 1 tablet 12h Active Nexium 40 mg Orally Once a day 1 capsule 24h Jul, 30 day(s) Active Triamcinolone Acetonide 0.025 % Externally Twice a day 1 application to affected area as needed 12h Jul, Active RESULTS No Results PROCEDURES Procedure Date Ordered Result Body Site COMPREHEN METABOLIC PANEL August 04, 2017 URINALYSIS, AUTO W/SCOPE August 04, 2017 INSTRUCTIONS MEDICATIONS ADMINISTERED No Known Medications [...] Surgical History bladder surgery Hospitalization History [facility] for right groin pain 05/2011 Hospitalization History [facility] for wound on buttocks 08/2012 Hospitalization History [facility], hypoxia secondary to pneumonia 12/02-12/09 Hospitalization History Pneumonia, elevated CO2 on Bipap was in ICU 08/2013 Hospitalization History Hypoxia, Exacerbation COPD, Chest pain 09/05/15 Hospitalization History suicidal ideations-[place] 12/28 Hospitalization History hypoxia--[facility] 02/13/2016 Hospitalization History shortness of breath at june 2016 Hospitalization History Shortness of breath at august 2016 Hospitalization History SOB, chest pain at 12/2016
--- OUTSIDE RECORDS SUMMARY | 2017-11-24 18:35 | XMS REPORT ---
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 [place] [address] 74313- 1588 Apr, [facility] [id number] [place] [address] 05145- 6355 Apr, [facility] [id number] [place] [address] 60282- 0766 Apr, Dysuria R30.0 and Well woman exam (no gynecological exam) Z00.00 [place] [id number] [place] [address] 61578- 3039 Mar, [facility] [id number] [place] [address] 72829- 0242 Mar, [facility] [address] [place] [address] [id number] Mar, Dental examination Z01.20 [facility] [id number] [place] [address] 27174- 9859 Mar, Chronic diarrhea K52.9 ; Intractable vomiting with nausea, vomiting of unspecified type R11.2 ; Cellulitis, unspecified cellulitis site L03.90 ; Type 2 diabetes mellitus with diabetic polyneuropathy E11.42 and Postinflammatory hyperpigmentation L81.0 [facility] [id number] [place] [address] 30090- 3227 Mar, Unspecified mood [affective] disorder F39 [facility] [address] [facility] [id number] [address]- 3674 Mar, Unspecified mood [affective] disorder F39 [facility] [address] [facility] [id number] [address]- 8687 Mar, [facility] [address] [facility] [id number] [address]- 2933 Mar, [facility] [address] [facility] [id number] [address]- 8238 Mar, [facility] [address] [facility] [id number] [address]- 3800 Mar, [facility] [address] [facility] [id number] [address]- 1475 Mar, [facility] [id number] [address]- 8390 Mar, [facility] [address] [facility] [id number] [address]- 1415 Feb, Unspecified mood [affective] disorder F39 [facility] [address] [facility] [id number] [address]- 0259 Feb, [facility] [id number] [address]- 1732 Feb, [facility] [id number] [address]- 1082 Jan, Unspecified mood [affective] disorder F39 [facility] [address] [id number] [place] [id number] Jan, Encounter for dental examination Z01.20 [facility] [id number] [address]- 1258 Jan, [facility] [id number] [address]- 8502 Jan, [facility] [id number] [place] [address] 97361- 6569 Jan, [facility] [id number] [place] [address] 71637- 1450 Jan, [facility] [id number] [place] [address] 19612- 4355 Jan, [facility] [address] 08934- 8691 Jan, Abdominal abscess K65.1 and Dental caries K02.9 [facility] [address] 01121- 8784 Jan, [facility] [address] 85788- 1002 30 Dec, 2014 Diabetes with neurological manifestations, type II or unspecified type, not stated as uncontrolled 250.60 ; Essential hypertension, benign 401.1 ; Concussion 850.9 and Skin texture changes 782.8 [facility] [id number] [place] [address] 50009- 0024 Dec, [facility] [id number] [place] [address] 13162- 5927 24 Dec, 2014 [facility] [id number] [place] [address] 73160- 0833 22 Dec, 2014 [facility] [id number] [place] [address] 20115- 2328 21 Dec, 2014 [facility] [id number] [place] [address] 07152- 6374 17 Dec, 2014 Affective disorder 296.90 [facility] [id number] [place] [address] 40020- 9963 14 Dec, 2014 [facility] [id number] [place] [address] 08642- 0347 10 Dec, 2014 Affective disorder 296.90 [facility] [id number] [place] [address] 89758- 8300 Dec, 2014 [facility] [id number] [address]- 2186 Dec, 2014 [facility] [address] [address] 2546 Dec, 2014 [facility] [address] [address] 2546 Dec, 2014 [facility] [id number] [place] [address] 07683 2546 Nov, Affective disorder 296.90 [facility] [address] [address] 2546 Nov, [facility] [id number] [place] [address] 26500- 7623 Nov, Affective disorder 296.90 [facility] [address] [address]- 2686 Nov, Diarrhea 787.91 [facility] [address] [address] 2546 Nov, [facility] [address], [place] [address] 2545 Nov, Diarrhea 787.91 [facility] [address] [address] 2546 Nov, Diarrhea 787.91 and Hyperlipidemia 272.4 [facility] [address] [address] 2546 Nov, Diarrhea 787.91 [facility] [id number] [address] 2546 Nov, Affective disorder 296.90 [facility] [address] [address]- 2546 Nov, Affective disorder 296.90 [facility] [id number] [address]- 4966 Nov, Affective disorder 296.90 [facility] [address] [address]- 0076 14 Nov, 2014 [facility] [address] [address]- 0394 Nov, [facility] [address] [address]- 4872 Nov, [facility] [id number] [place] [address] 83869- 7874 Nov, Episodic mood disorder 296.90 [facility] [address] [address]- 6170 Nov, [facility] [id number] [place] [address] 37476- 0845 Nov, [facility] [address] [address]- 8744 Nov, [facility] [address] [address]- 3422 Nov, [facility] [address], [place] [address]- 2409 Nov, [facility] [address] [address]- 8840 Nov, Lymphedema 457.1 ; Hyperlipidemia 272.4 ; Essential hypertension, benign 401.1 and Numbness of toes 782.0 [facility] [address] [address]- 8141 Nov, Episodic mood disorder 296.90 [facility] [address] [address]- 5627 Oct, [facility] [address] [address]- 9652 Oct, [facility] [address] [address]- 7672 Oct, [facility] [id number] [place] [address]- 3805 15 Oct, 2014 [facility] [address] [facility] [id number] [place] [address]- 8930 14 Oct, 2014 [facility] [place] [facility] [address] [facility] [id number] [place] [address]- 7950 Oct, 2014 [facility] [address] [facility] [id number] [place] [address]- 6521 Oct, 2014 [facility] [place] [facility] [address] [facility] [id number] [place] [address]- 5510 Oct, 2014 [facility] [address] [facility] [id number] [place] [address]- 2113 Oct, Episodic mood disorder 296.90 [facility] [id number] [place] [address]- 5507 Sep, [facility] [address] [place] [address]- 4312 Sep, [facility] [address] [facility] [id number] [place] [address]- 8375 Sep, [facility] [place] [facility] [id number] [place] [address]- 3564 Sep, [facility] [id number] [place] [address]- 3348 Sep, [facility] [id number] [address]- 4579 Sep, Episodic mood disorder 296.90 [facility] [address] [facility] [id number] [place] [address]- 9091 Sep, Unspecified episodic mood disorder 296.90 [facility] [place] [facility] [id number] 1342 Sep, [facility] [place] [facility] [id number] [place] [address]- 2135 Sep, [facility] [place] [facility] [address] [address]- 3787 Sep, Episodic mood disorder 296.90 [facility] [id number] [place] [address] 42686- 9449 Sep, [facility] [address] [address]- 8299 Sep, [facility] [id number] [place] [address] 83644- 5693 Sep, [facility] [id number] [place] [address] 18474- 3930 Sep, Hematemesis 578.0 and Vomiting 787.03 [facility] [id number] [place] [address] 59231- 2786 Sep, Episodic mood disorder 296.90 [facility] [id number] [place] [address] 07878- 7762 Sep, [facility] [id number] [place] [address] 27825- 2990 Sep, [facility] [id number] [place] [address] 20198- 7623 Sep, Diabetes mellitus without mention of complication, type II or unspecified type, not stated as uncontrolled 250.00 and Other chronic pain 338.29 [facility] [id number] [address] Sep, Episodic mood disorder 296.90 [facility] [id number] [address] Sep, [facility] [id number] [place] [address] 36311- 4202 Sep, Episodic mood disorder 296.90 [facility] [id number] [id number]- 3944 Sep, [facility] [id number] [place] [address] 83542- 4750 August, [facility] [address] [facility] [id number] [place] [address] August, [facility] [address] [facility] [id number] [place] [address]876 August, Episodic mood disorder 296.90 [facility] [id number] [place] [address] August, [facility] [id number] [place] [address] August, Unspecified episodic mood disorder 296.90 [facility] [id number] [place] [address]2 August, Vomiting 787.03 [facility] [id number] [place] [address]26 August, [facility] [id number] [place] [address] 9656 August, [facility] [id number] [place] [address] 8576 August, [facility] [id number] [place] [address] 7336 August, [facility] [id number] [place] [address]056 August, [facility] [id number] [place] [address] 9216 Jul, [facility] [address] [facility] [id number] [place] [address]- 3456 Jul, [facility] [address] [facility] [id number] [place] [address]- 2356 Jul, [facility] [address] [facility] [id number] [place] [address] 3856 Jun, [facility] [facility] [address] [id number] [place] [address] Jun, [facility] [place] [facility] [address] [id number] [place] [address] 9863 30 Jun, 2014 [facility] [place] [facility] [address] [id number] [place] [address]- 2346 Jun, [facility] [place] [facility] [address] [id number] [place] [address]- 4791 Jun, [facility] [place] [facility] [address] [id number] [place] [address]- 8975 Jun, [facility] [place] [facility] [address] [id number] [place] [address]- 6203 Jun, [facility] [place] [facility] [address] [id number] [place] [address]- 4656 Jun, [facility] [place] [facility] [address] [id number] [place] [address]- 7722 Jun, [facility] [place] [facility] [address] [id number] [place] [address]- 7899 Jun, [facility] [place] [facility] [address] [id number] [place] [address]- 1640 Jun, [facility] [place] [facility] [address] [id number] [place] [address]- 0274 Jun, [facility] [place] [facility] [address] [id number] [place] [address]- 4613 Jun, [facility] [place] [facility] [address] [id number] [place] [address]- 5900 Jun, [facility] [place] [facility] [address] [id number] [place] [address]- 4027 Jun, [facility] [place] [facility] [address] [id number] [place] [address]- 7319 Jun, [facility] [place] [facility] [address] [id number] [place] [address] Jun, [facility] [place] [facility] [address] [id number] [place] [address]- 0589 23 Jun, 2014 [facility] [place] [facility] [address] [id number] [place] [address]- 3480 23 Jun, 2014 [facility] [place] [facility] [address] [id number] [place] [address]- 8978 21 Jun, 2014 [facility] [place] [facility] [address] [id number] [place] [address]- 2434 21 Jun, 2014 [facility] [place] [facility] [address] [id number] [place] [address]- 7525 20 Jun, 2014 [facility] [place] [facility] [address] [id number] [place] [address]- 2656 20 Jun, 2014 [facility] [place] [facility] [address] [id number] [place] [address]- 8627 20 Jun, 2014 [facility] [place] [facility] [address] [id number] [place] [address]- 5123 20 Jun, 2014 [facility] [place] [facility] [address] [id number] [place] [address]- 8793 19 Jun, 2014 [facility] [place] [facility] [address] [id number] [place] [address]- 3647 19 Jun, 2014 [facility] [place] [facility] [address] [id number] [place] [address]- 7349 18 Jun, 2014 [facility] [place] [facility] [address] [id number] [place] [address]- 3962 18 Jun, 2014 [facility] [place] [facility] [address] [id number] [place] [address]- 3639 17 Jun, 2014 [facility] [place] [facility] [address] [id number] [place] [address]- 1955 17 Jun, 2014 [facility] [place] [facility] [address] [id number] [place] [address]- 0353 16 Jun, 2014 [facility] [place] [facility] [address] [id number] [place] [address]- 5110 16 Jun, 2014 [facility] [place] [facility] [address] [id number] [place] [address]- 0246 16 Jun, 2014 [facility] [place] [facility] [address] [id number] [place] [address]- 4529 16 Jun, 2014 [facility] [place] [facility] [address] [id number] [place] [address]- 7796 16 Jun, 2014 [facility] [place] [facility] [address] [id number] [place] [address]- 7101 16 Jun, 2014 [facility] [place] [facility] [address] [id number] [place] [address]- 9282 13 Jun, 2014 [facility] [place] [facility] [address] [id number] [place] [address]- 3816 13 Jun, 2014 [facility] [place] [facility] [address] [id number] [place] [address]- 6380 Jun, 2014 [facility] [place] [facility] [address] [id number] [place] [address]- 8097 Jun, 2014 [facility] [place] [facility] [address] [id number] [place] [address]- 2773 Jun, [facility] [place] [facility] [address] [id number] [place] [address]- 0642 Jun, 2014 [facility] [place] [facility] [address] [id number] [place] [address]- 2828 Jun, 2014 [facility] [place] [facility] [address] [id number] [place] [address]- 0545 Jun, 2014 [facility] [place] [facility] [address] [id number] [place] [address]- 3652 Jun, 2014 [facility] [place] [facility] [address] [id number] [place] [address]- 1340 Jun, 2014 [facility] [place] [facility] [address] [id number] [place] [address]- 5776 Jun, 2014 [facility] [place] [facility] [address] [id number] [place] [address]- 7737 Jun, [facility] [place] [facility] [address] [id number] [place] [address]- 5715 Jun, [facility] [place] [facility] [address] [id number] [place] [address]- 5917 Jun, [facility] [place] [facility] [address] [id number] [place] [address]- 1454 Jun, [facility] [place] [facility] [address] [id number] [place] [address]- 5070 Jun, [facility] [place] [facility] [address] [id number] [place] [address]- 4757 Jun, [facility] [place] [facility] [address] [id number] [place] [address]- 7961 Jun, [facility] [place] [facility] [address] [facility] [id number] [place] [address]- 4000 Jun, [facility] [place] [facility] [address] [id number] [place] [address]- 1594 Jun, [facility] [place] [facility] [address] [id number] [place] [address]- 2032 May, [facility] [place] [facility] [address] [facility] [id number] [place] [address]- 7620 May, [facility] [place] [facility] [address] [id number] [address]- 5011 May, 2014 [facility] [place] [facility] [address] [id number] [address]- 0735 May, 2014 [facility] [place] [facility] [address] [id number] [place] [address]- 9599 May, [facility] [place] [facility] [address] [id number] [place] [address]- 7060 May, [facility] [place] [facility] [address] [facility] [id number] [place] [address]- 4103 May, [facility] [place] [facility] [address] [id number] [place] [address]- 7229 May, 2014 [facility] [place] [facility] [address] [id number] [place] [address]- 5396 May, 2014 [facility] [place] [facility] [address] [facility] [id number] [place] [address]- 2546 May, 2014 [facility] [place] [facility] [address] [facility] [id number] [place] [address]- 2939 18 May, 2014 [facility] [place] [facility] [address] [id number] [place] [address]- 2544 18 May, 2014 [facility] [place] [facility] [address] [facility] [id number] [place] [address]- 2476 13 May, 2014 [facility] [place] [facility] [address] [facility] [id number] [place] [address]- 1915 13 May, 2014 [facility] [place] [facility] [address] [facility] [id number] [place] [address]- 0222 May, 2014 [facility] [place] [facility] [address] [facility] [id number] [place] [address]- 6661 May, 2014 [facility] [place] [facility] [address] [facility] [id number] [place] [address]- 4468 May, 2014 [facility] [place] [facility] [address] [facility] [id number] [place] [address]- 6622 May, 2014 [facility] [place] [facility] [address] [facility] [id number] [address]- 6532 May, 2014 [facility] [place] [facility] [address] [facility] [id number] [place] [address]- 2547 May, 2014 [facility] [place] [facility] [address] [facility] [id number] [place] [address]- 2329 May, 2014 [facility] [place] [facility] [address] [facility] [id number] [place] [address]- 6956 May, 2014 [facility] [place] [facility] [address] [facility] [id number] [place] [address]- 6189 May, [facility] [place] [facility] [address] [id number] [place] [address]- 2673 May, [facility] [place] [facility] [address] [id number] [place] 24[place] May, [facility] [place] [facility] [address] [id number] [place] [address]- 0106 May, [facility] [place] [facility] [address] [id number] [place] [address]- 9788 May, [facility] [place] [facility] [address] [id number] [place] [address]- 4146 Apr, [facility] [place] [facility] [address] [id number] [place] [address]- 6724 Apr, [facility] [place] [facility] [address] [id number] [place] [address]- 9260 Apr, [facility] [place] [facility] [address] [id number] [place] [address]- 8209 Apr, [facility] [place] [facility] [address] [id number] [place] [address]- 7102 Apr, [facility] [place] [facility] [address] [id number] [place] [address]- 1947 Apr, [facility] [place] [facility] [address] [id number] [place] [address]- 6386 Apr, [facility] [place] [facility] [address] [id number] [place] [address]- 0060 Apr, [facility] [place] [facility] [address] [id number] [place] [address]- 7069 Apr, [facility] [place] [facility] [address] [id number] [place] [address]- 5155 Apr, [facility] [place] [facility] [address] [id number] [place] [address]- 9978 Apr, [facility] [place] [facility] [address] [id number] [place] [address]- 3212 Apr, [facility] [place] [facility] [address] [id number] [place] [address]- 2501 Apr, [facility] [place] [facility] [address] [id number] [place] [address]- 0037 Apr, [facility] [place] [facility] [address] [id number] [place] [address]- 6661 Apr, [facility] [place] [facility] [address] [id number] [place] [address]- 3617 Apr, [facility] [place] [facility] [address] [id number] [place] [address]- 7304 Apr, [facility] [place] [facility] [address] [id number] [place] [address]- 4042 Apr, [facility] [place] [facility] [address] [id number] [place] [address]- 9131 Apr, [facility] [place] [facility] [address] [id number] [place] [address]- 8527 Apr, [facility] [place] [facility] [address] [id number] [place] [address]- 1588 Mar, [facility] [place] [facility] [address] [id number] [place] [address]- 6636 Mar, [facility] [place] [facility] [address] [id number] [place] [address]- 1131 Mar, [facility] [place] [facility] [address] [id number] [place] [address]- 4181 Mar, [facility] [place] [facility] [address] [id number] [place] [address]- 7905 Mar, [facility] [place] [facility] [address] [id number] [place] [address] Mar, [facility] [place] [facility] [address] [id number] [place] [address]- 0063 18 Mar, 2014 [facility] [place] [facility] [address] [id number] [place] [address]- 6834 18 Mar, 2014 [facility] [place] [facility] [address] [id number] [place] [address]- 7401 15 Mar, 2014 [facility] [place] [facility] [address] [id number] [place] [address]- 3196 15 Mar, 2014 [facility] [place] [facility] [address] [id number] [place] [address]- 9273 15 Mar, 2014 [facility] [place] [facility] [address] [id number] [place] [address]- 4266 15 Mar, 2014 [facility] [place] [facility] [address] [id number] [place] [address]- 0133 Mar, [facility] [place] [facility] [address] [id number] [place] [address]- 4845 Mar, [facility] [place] [facility] [address] [id number] [place] [address]- 6240 Mar, [facility] [place] [facility] [address] [id number] [place] [address]- 8711 Mar, [facility] [place] [facility] [address] [id number] [place] [address]- 0478 Feb, [facility] [place] [facility] [address] [id number] [place] [address]- 1426 Feb, [facility] [place] [facility] [address] [id number] [place] [address]- 9104 Feb, [facility] [place] [facility] [address] [id number] [place] [address]- 2182 Feb, [facility] [place] [facility] [address] [id number] [place] [address]- 3788 Feb, [facility] [place] [facility] [address] [id number] [place] [address]- 3550 Feb, [facility] [place] [facility] [address] [id number] [place] [address]- 1174 19 Feb, 2014 [facility] [place] [facility] [address] [id number] [place] [address]- 2466 18 Feb, 2014 [facility] [place] [facility] [address] [id number] [place] [address]- 1365 18 Feb, 2014 [facility] [place] [facility] [address] [id number] [place] [address]- 9419 17 Feb, 2014 [facility] [place] [facility] [address] [id number] [place] [address]- 2851 17 Feb, 2014 [facility] [place] [facility] [address] [id number] [place] [address]- 7195 17 Feb, 2014 [facility] [place] [facility] [address] [id number] [place] [address]- 5039 17 Feb, 2014 [facility] [place] [facility] [address] [id number] [place] [address]- 0289 14 Feb, 2014 [facility] [place] [facility] [address] [id number] [place] [address]- 5515 14 Feb, 2014 [facility] [place] [facility] [address] [id number] [place] [address]- 9727 14 Feb, 2014 [facility] [place] [facility] [address] [id number] [place] [address]- 9406 14 Feb, 2014 [facility] [place] [facility] [address] [id number] [place] [address]- 8556 10 Feb, 2014 [facility] [place] [facility] [address] [id number] [place] [address]- 4652 10 Feb, 2014 [facility] [place] [facility] [address] [id number] [place] [address]- 4925 04 Feb, 2014 [facility] [place] [facility] [address] [id number] [place] [address]- 1699 04 Feb, 2014 [facility] [place] [facility] [address] [id number] [place] [address]- 5746 Jan, 2013 [facility] [place] [facility] [address] [id number] [place] [address]- 3538 30 Jan, 2013 [facility] [place] [facility] [address] [id number] [place] [address]- 6811 30 Jan, 2013 [facility] [place] [facility] [address] [id number] [place] [address]- 1223 Jan, [facility] [place] [facility] [address] [id number] [place] [address]- 7731 Jan, [facility] [place] [facility] [address] [id number] [place] [address]- 2609 Jan, [facility] [place] [facility] [address] [id number] [place] [address]- 6471 Jan, [facility] [place] [facility] [address] [id number] [place] [address]- 0009 Jan, [facility] [place] [facility] [address] [id number] [address]- 1071 Jan, [facility] [place] [facility] [address] [id number] [place] [address]- 3207 Jan, [facility] [place] [facility] [address] [id number], [place] [address]- 8805 Jan, [facility] [place] [facility] [address] [id number], [place] [address]- 2515 Jan, 2013 [facility] [place] [facility] [address] [id number], [place] [address]- 9519 Jan, 2013 [facility] [place] [facility] [address] [id number], [place] [address]- 3211 17 Jan, 2013 [facility] [place] [facility] [address] [id number], [place] [address]- 0324 15 Jan, 2014 [facility] [place] [facility] [address] [id number], [place] [address]- 3725 15 Jan, 2014 [facility] [place] [facility] [address] [id number] [place] [address]- 6429 14 Jan, 2014 [facility] [place] [facility] [address] [id number] [place] [address]- 9310 14 Jan, 2014 [facility] [place] [facility] [address] [id number] [place] [address]- 0860 13 Jan, 2014 [facility] [place] [facility] [address] [id number] [place] [address]- 5315 13 Jan, 2014 [facility] [place] [facility] [address] [id number] [place] [address]- 4079 13 Jan, 2014 [facility] [place] [facility] [address] [id number] [place] [address]- 8732 13 Jan, 2014 [facility] [place] [facility] [address] [id number] [place] [address]- 8940 10 Jan, 2014 [facility] [place] [facility] [address] [id number] [place] [address]- 3159 02 Jan, 2014 [facility] [place] [facility] [address] [id number] [place] [address]- 4779 02 Jan, 2014 [facility] [place] [facility] [address] [id number] [place] [address]- 3620 25 Dec, 2013 [facility] [place] [facility] [address] [id number] [place] [address]- 8585 25 Sep, 2013 [facility] [place] [facility] [address] [id number] [place] [address]- 2547 23 Sep, 2013 [facility] [place] [facility] [address] [id number] [place] [address]- 2548 23 Sep, 2013 [facility] [place] [facility] [address] [id number] [place] [address]- 2544 19 Sep, 2013 [facility] [place] [facility] [address] [id number] [place] [address]- 254 19 Sep, 2013 [facility] [place] [facility] [address] [id number] [place] [address]- 6551 17 Sep, 2013 [facility] [place] [facility] [address] [id number] [place] [address]- 5096 17 Dec, 2013 [facility] [place] [facility] [address] [id number] [place] [address]- 6306 Dec, 2013 [facility] [place] [facility] [address] [id number] [place] [address]- 9424 Dec, 2013 [facility] [place] [facility] [address] [id number] [place] [address]- 0164 08 Dec, 2013 [facility] [place] [facility] [address] [id number] [place] [address]- 8508 08 Dec, 2013 [facility] [place] [facility] [address] [id number] [place] [address]- 0914 Dec, 2013 [facility] [place] [facility] [address] [id number] [place] [address]- 2043 Dec, 2013 [facility] [place] [facility] [address] [id number] [place] [address]- 0774 Dec, 2013 [facility] [place] [facility] [address] [id number] [place] [address]- 1416 Dec, 2013 [facility] [place] [facility] [address] [id number] [place] [address]- 2757 Dec, 2013 [facility] [place] [facility] [address] [id number] [place] [address]- 5877 Dec, 2013 [facility] [place] [facility] [address] [id number] [place] [address]- 7504 Nov, [facility] [place] [facility] [address] [id number] [place] [address]- 7528 Nov, [facility] [place] [facility] [address] [id number] [place] [address]- 0945 Nov, [facility] [place] [facility] [address] [id number] [place] [address]- 7094 Nov, [facility] [place] [facility] [address] [id number] [place] [address] Nov, [facility] [place] [facility] [address] [id number] [place] [address] Nov, [facility] [place] [facility] [address] [id number] [place] [address] Nov, [facility] [place] [facility] [address] [id number] [place] [address] Nov, [facility] [place] [facility] [address] [id number] [place] [address]709 Nov, [facility] [place] [facility] [address] [id number] [place] [address] Nov, [facility] [place] [facility] [address] [id number] [place] [address] 94[address] Nov, [facility] [place] [facility] [address] [id number] [place] [address] Nov, [facility] [place] [facility] [address] [id number] [place] [address] Oct, [facility] [place] [facility] [address] [id number] [place] [address]64 Oct, [facility] [place] [facility] [address] [id number] [place] [address] 5848 Oct, [facility] [place] [facility] [address] [id number] [place] [address]181 Oct, [facility] [place] [facility] [address] [id number] [place] [address]227 Oct, [facility] [place] [facility] [address] [id number] [place] [address] Oct, [facility] [place] [facility] [address] [id number] [place] [address] 3974 Oct, [facility] [place] [facility] [address] [id number] [place] [address]- 5747 Oct, [facility] [place] [facility] [address] [id number] [place] [address] 22 Oct, 2013 [facility] [place] [facility] [address] [id number] [place] [address]80 22 Oct, 2013 [facility] [place] [facility] [address] [id number] [place] [address] 288[address] 16 Oct, 2013 [facility] [place] [facility] [address] [id number] [place] [address] 3260 16 Oct, 2013 [facility] [place] [facility] [address] [id number] [place] [address]- 5965 14 Oct, 2013 [facility] [place] [facility] [address] [id number] [place] [address]- 7034 14 Oct, 2013 [facility] [place] [facility] [address] [id number] [place] [address]- 3768 13 Oct, 2013 [facility] [place] [facility] [address] [id number] [place] [address]- 1424 13 Oct, 2013 [facility] [place] [facility] [address] [id number] [place] [address]- 118[address] 2013 [facility] [place] [facility] [address] [id number] [place] [address]- [address]994 27 Sep, 2013 [facility] [place] [facility] [address] [id number] [place] [address] 27 Sep, 2013 [facility] [place] [facility] [address] [id number] [place] [address]- 8277 20 Sep, 2013 [facility] [place] [facility] [address] [id number] [place] [address]- 5410 20 Sep, 2013 [facility] [place] [facility] [address] [id number] [place] [address]- 8969 18 Sep, 2013 [facility] [place] [facility] [address] [id number] [place] [address] 9661 18 Sep, 2013 [facility] [place] [facility] [address] [id number] [place] [address] 3938 Sep, [facility] [place] [facility] [address] [id number] [place] [address]- 0895 17 Sep, 2013 [facility] [place] [facility] [address] [id number] [place] [address]- 7184 Sep, [facility] [place] [facility] [address] [id number] [place] [address] 2115 Sep, [facility] [place] [facility] [address] [id number] [place] [address]- 8687 Sep, [facility] [place] [facility] [address] [id number] [place] [address]- 2275 Sep, [facility] [place] [facility] [address] [id number] [place] [address]- 0492 Sep, [facility] [place] [facility] [address] [id number] [place] [address]- 5890 Sep, [facility] [place] [facility] [address] [id number] [place] [address] 3238 Sep, [facility] [place] [facility] [address] [id number] [place] [address]- 9578 Sep, [facility] [place] [facility] [address] [id number] [place] [address]- 3172 Sep, [facility] [place] [facility] [address] [id number] [place] [address]- 7197 Sep, [facility] [place] [facility] [address] [id number] [place] [address]- 6402 Sep, [facility] [place] [facility] [address] [id number] [place] [address]- 8437 Sep, [facility] [place] [facility] [address] [id number] [place] [address]- 1327 Sep, [facility] [place] [facility] [address] [id number] [place] [address]- 6912 Sep, [facility] [place] [facility] [address] [id number] [place] [address]- 5469 August, [facility] [address] [id number] [place] [address]- 0766 August, [facility] [place] [facility] [address] [id number] [place] [address]- 2765 August, [facility] [address] [id number] [place] [address]- 5873 August, [facility] [place] [facility] [address] [id number] [place] [address]- 8356 August, [facility] [address] [id number] [place] [address]- 1460 August, [facility] [place] [facility] [address] [id number] [place] [address]- 4311 August, [facility] [address] [id number] [place] [address]- 4334 August, [facility] [address] [id number] [place] [address]- 3906 August, [facility] [address] [id number] [place] [address]- 5534 August, [facility] [place] [facility] [address] [id number] [place] [address]- 4776 August, [facility] [place] [facility] [address] [id number] [place] [address]- 5338 Jul, [facility] [place] [facility] [address] [id number] [place] [address]- 6211 Jul, [facility] [place] [facility] [address] [id number] [place] [address]- 6075 Jul, [facility] [place] [facility] [address] [id number] [place] [address]- 0111 Jul, [facility] [place] [facility] [address] [id number] [place] [address]- 9577 Jul, [facility] [place] [facility] [address] [id number] [place] [address]- 7265 23 Jul, 2013 [facility] [place] [facility] [address] [id number] [place] [address]- 6411 Jul, [facility] [place] [facility] [address] [id number] [place] [address]- 7702 Jul, [facility] [place] [facility] [address] [id number] [place] [address]- 5403 18 Jul, 2013 [facility] [place] [facility] [address] [id number] [place] [address]- 3318 18 Jul, 2013 [facility] [place] [facility] [address] [id number] [place] [address]- 8787 16 Jul, 2013 [facility] [place] [facility] [address] [id number] [place] [address]- 2514 14 Jul, 2013 [facility] [place] [facility] [address] [id number] [place] [address]- 6934 14 Jul, 2013 [facility] [place] [facility] [address] [id number] [place] [address]- 7177 Jul, [facility] [place] [facility] [address] [id number] [place] [address]- 0124 11 Jul, 2013 [facility] [place] [facility] [address] [id number] [place] [address] 4812 10 Jul, 2013 [facility] [place] [facility] [address] [id number] [place] [address]- 5591 10 Jul, 2013 [facility] [place] [facility] [address] [id number] [place] [address]- 8390 05 Jul, 2013 [facility] [place] [facility] [address] [id number] [place] [address]- 3201 05 Jul, 2013 [facility] [place] [facility] [address] [id number] [place] [address]- 2833 02 Jul, 2013 [facility] [place] [facility] [address] [id number] [place] [address]- 2927 Jul, [facility] [place] [facility] [address] [id number] [place] [address]- 8556 Jul, [facility] [place] [facility] [address] [id number] [place] [address]- 2266 Jul, [facility] [place] [facility] [address] [id number] [place] [address]- 6413 Jun, [facility] [place] [facility] [address] [id number] [place] [address]- 9531 Jun, [facility] [place] [facility] [address] [id number] [place] [address] 1920 Jun, [facility] [place] [facility] [address] [id number] [place] [address]- 4984 Jun, [facility] [place] [facility] [address] [id number] [place] [address]- 2728 Jun, [facility] [place] [facility] [address] [id number] [place] [address]- 3977 Jun, [facility] [place] [facility] [address] [id number] [place] [address]- 0762 Jun, [facility] [place] [facility] [address] [id number] [place] [address]- 1780 Jun, [facility] [place] [facility] [address] [id number] [place] [address]- 6273 Jun, [facility] [place] [facility] [address] [id number] [address]- 8039 Jun, [facility] [place] [facility] [address] [id number] [place] [address]- 5063 Jun, [facility] [place] [facility] [address] [id number] [place] [address]- 3045 Jun, [facility] [place] [facility] [address] [id number] [place] [address]- 7207 18 May, 2013 [facility] [place] [facility] [address] [id number] [place] [address]- 6022 May, [facility] [address] [id number] [place] [address]- 9734 Apr, [facility] [address] [id number] [place] [address]- 0320 Apr, [facility] [address] [id number] [place] [address]- 6807 Apr, [facility] [address] [id number] [place] [address]- 7125 Apr, [facility] [address] [id number] [place] [address]- 6886 Apr, [facility] [address] [id number] [place] [address]- 5111 Apr, [facility] [address] [id number] [place] [address]- 0842 Apr, [facility] [address] [id number] [place] [address]- 4559 Apr, [facility] [address] [id number] [place] [address]- 1523 Apr, [facility] [address] [id number] [place] [address]- 9306 Apr, [facility] [address] [id number] [place] [address]- 5390 Apr, [facility] [address] [id number] [place] [address]- 9525 Mar, [facility] [place] [facility] [address] [id number] [place] [address]- 6305 Mar, [facility] [address] [id number] [place] [address]- 2307 Mar, [facility] [address] [id number] [place] [address]- 3833 Mar, [facility] [place] [facility] [address] [id number] [place] [address]- 0089 Feb, [facility] [place] [facility] [address] [id number] [place] [address]- 9158 Feb, [facility] [place] [facility] [address] [id number] [address]- 6672 Feb, [facility] [place] [facility] [address] [id number] [address]- 6837 Feb, [facility] [place] [facility] [address] [id number] [place] [address]- 4321 Feb, [facility] [place] [facility] [address] [id number] [address]- 5553 Feb, [facility] [place] [facility] [address] [id number][place] [address]- 2823 Feb, [facility] [place] [facility] [address] [id number][place] [address]- 4343 Feb, [facility] [place] [facility] [address] [id number], [place] [address]- 3880 Feb, [facility] [place] [facility] [address] [facility] [id number][place] [address]- 3351 Feb, [facility] [place] [facility] [address] [id number][place] [address]- 4869 Feb, [facility] [place] [facility] [address] [id number] [address]- 7005 Jan, [facility] [place] [facility] [address] [id number][place] [address]- 5775 Jan, [facility] [place] [facility] [address] [id number][place] [address]- 3211 Jan, [facility] [place] [facility] [address] [facility] [id number][place] [address]- 2973 Jan, [facility] [place] [facility] [address] [id number][place] [address]- 1281 10 Jan, 2013 [facility] [address] [id number] [place] [address]- 9888 10 Jan, 2013 [facility] [place] [facility] [address] [id number] [place] [address]- 5639 03 Jan, 2013 [facility] [place] [facility] [address] [id number] [place] [address]- 7553 02 Jan, 2013 [facility] [place] [facility] [address] [id number] [place] [address]- 3085 30 Dec, 2012 [facility] [place] [facility] [address] [id number] [place] [address]- 4717 25 Dec, 2012 [facility] [place] [facility] [address] [id number] [place] [address]- 3542 18 Dec, 2012 [facility] [place] [facility] [address] [id number] [place] [address]- 5343 17 Dec, 2012 [facility] [place] [facility] [address] [id number] [place] [address]- 3814 17 Dec, 2012 [facility] [place] [facility] [address] [id number] [place] [address]- 3560 16 Dec, 2012 [facility] [place] [facility] [address] [id number] [place] [address]- 9175 13 Dec, 2012 [facility] [place] [facility] [address] [id number] [place] [address]- 2915 11 Dec, 2012 [facility] [place] [facility] [address] [id number] [place] [address]- 2541 05 Dec, 2012 [facility] [place] [facility] [address] [id number] [place] [address]- 5566 04 Dec, 2012 [facility] [place] [facility] [address] [id number] [place] [address]- 8782 30 Nov, 2012 [facility] [place] [facility] [address] [id number] [place] [address]- 3516 29 Nov, 2012 [facility] [place] [facility] [address] [id number] [place] [address]- 7437 22 Nov, 2012 [facility] [place] [facility] [address] [id number] [place] [address]- 9085 16 Nov, 2012 [facility] [place] [facility] [address] [id number] [place] [address]- 7976 14 Nov, 2012 [facility] [place] [facility] [address] [id number] [place] [address]- 4360 Nov, [facility] [place] [facility] [address] [id number] [place] [address]- 2668 05 Nov, 2012 [facility] [place] [facility] [address] [id number] [place] [address]- 4275 Oct, [facility] [place] [facility] [address] [id number] [place] [address]- 3407 Oct, [facility] [place] [facility] [address] [id number] [place] [address]- 0775 Oct, [facility] [place] [facility] [address] [id number] [place] [address]- 3606 Oct, [facility] [place] [facility] [address] [id number] [place] [address]- 5927 Oct, [facility] [place] [facility] [address] [id number] [place] [address]- 8963 Oct, [facility] [place] [facility] [address] [id number] [place] [address]- 1859 Sep, [facility] [place] [facility] [address] [id number] [place] [address]- 4244 28 Sep, 2012 [facility] [place] [facility] [address] [id number] [place] [address]- 9364 27 Sep, 2012 [facility] [place] [facility] [address] [id number] [place] [address]- 7313 14 Sep, 2012 [facility] [place] [facility] [address] [id number] [place] [address]- 9466 Sep, [facility] [address] [id number] [place] [address]- 8578 Sep, [facility] [address] [id number] [place] [address]- 7815 Sep, [facility] [address] [id number] [place] [address]- 5694 Sep, [facility] [address] [id number] [place] [address]- 1540 Sep, [facility] [address] [id number] [place] [address]- 0684 August, [facility] [address] [id number] [place] [address]- 2683 August, [facility] [address] [id number] [place] [address]- 2345 August, [facility] [address] [id number] [place] [address]- 1327 August, [facility] [address] [id number] [place] [address]- 3374 August, [facility] [address] [id number] [place] [address]- 2387 August, [facility] [address] [id number] [place] [address]- 0824 August, [facility] [address] [id number] [place] [address]- 6324 August, [facility] [address] [id number] [place] [address]- 0442 Jul, [facility] [address] [id number] [place] [address]- 1444 Jul, [facility] [address] [place] [id number] Jul [facility] [address] [id number] [place] [address]- 6366 Jun, [facility] [address] [id number] [place] [address]- 3072 Jun, [facility] [address] [id number] [place] [address]- 9022 Jun, [facility] [address] [facility] [id number] [place] [address]- 2794 Jun, [facility] [address] [id number] [place] [address]- 5175 Jun, [facility] [address] [id number] [place] [address]- 1840 Jun, [facility] [address] [id number] [place] [address]- 7893 May, [facility] [address] [facility] [id number] [place] [address]- 4933 May, [facility] [address] [id number] [place] [address]- 1328 May, [facility] [address] [id number] [place] [address]- 3737 May, [facility] [address] [facility] [id number] [place] [address]- 9990 May, [facility] [address] [id number], [place] [address]- 0128 Apr, [facility] [place] [facility] [address] [id number], [place] [address]- 2236 Apr, [facility] [place] [facility] [address] [id number] [place] [address]- 2566 Apr, [facility] [place] [facility] [address] [id number][place] [address]- 6509 Apr, [facility] [place] [facility] [address] [facility] [id number][place] [address]- 5638 Apr, [facility] [place] [facility] [address] [id number] [place] [address]- 4919 Apr, [facility] [place] [facility] [address] [id number] [place] [address]- 9066 Mar, [facility] [place] [facility] [address] [id number] [place] [address] 2546 Mar, [facility] [place] [facility] [address] [id number] [place] [address]- 5156 Mar, [facility] [place] [facility] [address] [id number] [place] [address]- 8151 Mar, [facility] [place] [facility] [address] [id number] [place] [address]- 8136 Mar, [facility] [place] [facility] [address] [id number] [place] [address]- 9952 Mar, [facility] [place] [facility] [address] [id number] [place] [address]- 7276 Mar, [facility] [place] [facility] [address] [id number] [place] [address]- 6006 Mar, [facility] [place] [facility] [address] [id number] [place] [address]- 9995 Mar, [facility] [place] [facility] [address] [id number] [place] [address]474 Mar, [facility] [place] [facility] [address] [id number] [place] [address]- 2504 Mar, [facility] [place] [facility] [address] [id number] [place] [address]- 4728 Feb, [facility] [place] [facility] [address] [id number] [place] [address]- 9746 Feb, [facility] [place] [facility] [address] [id number] [place] [address]- 7936 Feb, [facility] [place] [facility] [address] [id number] [place] [address]- 4860 Feb, [facility] [place] [facility] [address] [id number] [place] [address]- 2071 Feb, [facility] [place] [facility] [address] [id number] [place] [address]- 8797 Feb, [facility] [place] [facility] [address] [facility] [id number] [place] [address]908 Feb, [facility] [place] [facility] [address] [id number] [place] [address], [place] [address]- 1648 Feb, [facility] [place] [facility] [address] [id number] [place] [address]- 7069 Feb, [facility] [place] [facility] [id number] [place] [address], [place] [address]- 5416 Feb, [facility] [place] [facility] [address] [facility] [id number] [place] [address]- 4243 Feb, [facility] [place] [facility] [address] [id number], [place] [address]- 3123 Jan, [facility] [place] [facility] [address] [id number][place] [address]- 8374 Jan, [facility] [place] [facility] [address] [facility] [id number][place] [address]- 6418 Jan, [facility] [place] [facility] [address] [id number], [place] [address]- 1172 Jan, [facility] [place] [facility] [address] [id number], [place] [address]- 2743 Jan, [facility] [place] [facility] [address] [id number], [place] [address]- 7301 Jan, [facility] [place] [facility] [address] [facility] [id number][place] [address]- 2710 Jan, [facility] [place] [facility] [address] [facility] [id number], [place] [address]- 0935 24 Dec, 2011 [facility] [place] [facility] [address] [id number] [place] [address]- 0496 17 Dec, 2011 [facility] [place] [facility] [address] [id number] [place] [address]- 5466 13 Dec, 2011 [facility] [place] [facility] [address] [id number] [place] [address]- 2066 12 Dec, 2011 [facility] [place] [facility] [address] [id number] [place] [address]- 1876 23 Nov, 2011 [facility] [place] [facility] [address] [id number] [place] [address] 2546 20 Nov, 2011 [facility] [place] [facility] [address] [id number] [place] [address]- 1480 17 Nov, 2011 [facility] [place] [facility] [address] [id number] [place] [address]- 2413 15 Nov, 2011 [facility] [place] [facility] [address] [id number] [place] [address]- 8903 14 Nov, 2011 [facility] [place] [facility] [address] [id number] [place] [address]- 8871 Nov, [facility] [place] [facility] [address] [id number] [place] [address]- 8602 Nov, [facility] [place] [facility] [address] [id number] [place] [address]- 6733 Nov, [facility] [place] [facility] [address] [id number] [place] [address]- 4386 Nov, [facility] [place] [facility] [address] [id number] [place] [address]- 2544 Nov, [facility] [place] [facility] [address] [id number] [place] [address]- 9192 Nov, [facility] [place] [facility] [address] [id number] [place] [address]- 5096 Nov, [facility] [place] [facility] [address] [id number] [place] [address]- 9357 Nov, [facility] [place] [facility] [address] [id number] [place] [address]- 2401 Oct, [facility] [place] [facility] [address] [id number] [place] [address]- 9642 Oct, [facility] [place] [facility] [address] [id number] [place] [address]- 0720 Oct, [facility] [place] [facility] [address] [id number] [place] [address]- 7810 Oct, [facility] [place] [facility] [address] [id number] [place] [address]- 3743 Oct, [facility] [place] [facility] [address] [id number] [place] [address]- 4380 Oct, [facility] [place] [facility] [address] [id number] [place] [address]- 8176 Oct, [facility] [place] [facility] [address] [id number] [place] [address]- 6235 Oct, [facility] [place] [facility] [address] [id number] [place] [address]- 0134 Oct, [facility] [place] [facility] [address] [id number] [place] [address]- 9214 Sep, [facility] [place] [facility] [address] [id number] [place] [address]- 4405 Sep, [facility] [place] [facility] [address] [id number] [place] [address]- 1417 Sep, [facility] [place] [facility] [address] [id number] [place] [address]- 0897 Sep, [facility] [place] [facility] [address] [id number] [place] [address]- 1569 Sep, [facility] [place] [facility] [address] [id number] [place] [address]- 0852 Sep, [facility] [place] [facility] [address] [id number], [place] [address]- 2546 Sep, [facility] [address] [id number], [place] [address]- 0066 Sep, [facility] [id number], [place] [address]- 8406 August, [facility] [id number], [place] [address]- 1576 August, [facility] [id number], [place] [address]- 9628 August, [facility] [address] [id number], [place] [address]- 3819 August, [facility] [id number], [place] [address]- 4003 August, [facility] [id number], [place] [address]- 3648 August, [facility] [id number], [place] [address]- 1454 August, [facility] [id number], [place] [address]- 8389 August, [facility] [id number] [address] August, [facility] [id number] [address] August, [facility] [id number] [address] August, [facility] [id number] [address] August, [facility] [id number] [address] Oct, IMMUNIZATIONS No Known Immunizations SOCIAL HISTORY Never Assessed REASON FOR VISIT request med change to 30 day supply PLAN OF CARE VITAL SIGNS MEDICATIONS Medication Instructions Dosage Frequency Start Date End Date Duration Status Metformin HCl 1000 MG Orally Twice a day 1 tablet with meals 12h 30 days Active RESULTS No Results PROCEDURES [...]
--- OUTSIDE RECORDS SUMMARY | 2017-11-24 18:38 | XMS REPORT ---
Author Author JIMENA ZAINAB [facility] Address [address] [place] [address] Care Team Providers Care Loom Checker Name Role Phone KELSEY HESSY Unavailable PROBLEMS Type Condition ICD9-CM Code [id number] Code Onset Dates Condition Status SNOMED Code Problem Primary insomnia F51.01 Active 262857636 Problem Type 2 diabetes mellitus with hyperglycemia E11.65 Active 26881966 Problem Major depressive disorder, recurrent, unspecified F33.9 Active 380181315 Problem Acute and chronic respiratory failure with hypoxia J96.21 Active 16207652675615200 Problem Microalbuminuria R80.9 Active 178720226 Problem Dysphagia, unspecified type R13.10 Active 44798708 Problem 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 Active 439194779079 Problem Morbid obesity with alveolar hypoventilation E66.2 Active 773394502 Problem Chronic tension-type headache, intractable G44.221 Active 567841894 Problem Type 2 diabetes mellitus with diabetic polyneuropathy E11.42 Active 57796000 Problem MRSA (methicillin resistant Staphylococcus aureus) A49.02 Active 671169617 Problem Recurrent cellulitis L03.90 Active 736640618 Problem Chronic diarrhea K52.9 Active 761299311 Problem Chronic nausea R11.0 Active 884024751 Problem Gastroesophageal reflux disease, esophagitis presence not specified K21.9 Active 057483839 Problem Tinnitus of both ears H93.13 Active 5500282061888 Problem Essential hypertension I10 Active 15151133 Problem Anxiety F41.9 Active 80067209 Problem Lymphedema I89.0 Active 970402422 Problem Hypertriglyceridemia E78.1 Active 358296728 Problem Meralgia paresthetica, unspecified laterality G57.10 Active 87262659 Problem Obstructive sleep apnea G47.33 Active 63556734 Problem Low back pain M54.5 Active 744634917 ALLERGIES No Information SOCIAL HISTORY Never Assessed PLAN OF CARE VITAL SIGNS MEDICATIONS Medication Instructions Dosage Frequency Start Date End Date Duration Status Tamiflu 75 MG Orally Once a day 1 capsule 24h Jun, 05 days Active RESULTS No Results PROCEDURES No [...] Surgical History bladder surgery Hospitalization History [facility] for right groin pain 05/2011 Hospitalization History [facility] for wound on buttocks 08/2012 Hospitalization History [facility], hypoxia secondary to pneumonia 12/02-12/09 Hospitalization History Pneumonia, elevated CO2 on Bipap was in ICU 08/2013 Hospitalization History Hypoxia, Exacerbation COPD, Chest pain 09/05/15 Hospitalization History suicidal ideations-[place] 12/28 Hospitalization History hypoxia--[facility] 02/13/2016 Hospitalization History shortness of breath at june 2016 Hospitalization History Shortness of breath at august 2016 Hospitalization History SOB, chest pain at 12/2016
--- OUTSIDE RECORDS SUMMARY | 2017-11-24 18:38 | XMS REPORT ---
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 mood [affective] disorder F39 [facility] [address] [facility] [id number], [place] [address]- 4810 Mar, [facility] [address] [facility] [id number], [place] [address]- 2576 Mar, [facility] [address] [facility] [id number], [place] [address]- 3368 Mar, [facility] [address] [facility] [id number], [place] [address]- 3804 Mar, [facility] [address] [facility] [id number], [place] [address]- 2586 Mar, [facility] [id number], [place] [address]- 9097 Mar, [facility] [address] [facility] [id number], [place] [address]- 0516 Feb, Unspecified mood [affective] disorder F39 [facility] [address] [facility] [id number], [place] [address]- 9601 Feb, [facility] [id number], [place] [address]- 2509 Feb, [facility] [id number], [place] [address]- 3324 Jan, Unspecified mood [affective] disorder F[address] [facility] [address] [id number] [id number] Jan, Encounter for dental examination Z01.20 [facility] [id number], [place] [address]- 3123 Jan, [facility] [id number], [place] [address]- 8034 Jan, [facility] [id number] [place] [address] 28647- 7042 Jan, [facility] [id number] [place] [address] 89186- 1118 Jan, [facility] [id number] [place] [address] 97270- 9583 Jan, [facility] [address] 52688- 8977 Jan, Abdominal abscess K65.1 and Dental caries K02.9 [facility] [address] 54449- 5902 Jan, [facility] [address] 40384- 8656 30 Dec, 2014 Diabetes with neurological manifestations, type II or unspecified type, not stated as uncontrolled 250.60 ; Essential hypertension, benign 401.1 ; Concussion 850.9 and Skin texture changes 782.8 [facility] [id number] [place] [address] 10007- 3944 Dec, [facility] [id number] [place] [address] 93305- 1741 24 Dec, 2014 [facility] [id number] [place] [address] 72544- 0579 22 Dec, 2014 [facility] [id number] [place] [address] 99597- 5389 21 Dec, 2014 [facility] [id number] [place] [address] 36684- 2623 17 Dec, 2014 Affective disorder 296.90 [facility] [id number] [place] [address] 06555- 9048 14 Dec, 2014 [facility] [id number] [place] [address] 00687- 1066 10 Dec, 2014 Affective disorder 296.90 [facility] [id number] [place] [address] 46205- 3958 Dec, 2014 [facility] [id number] [address]- 8646 Dec, 2014 [facility] [address], [place] [address] 2546 Dec, 2014 [facility] [address], [place] [address] 2546 Dec, 2014 [facility] [id number] [place] [address] 69097 2546 Nov, Affective disorder 296.90 [facility] [address], [place] [address] 2546 Nov, [facility] [id number] [place] [address] 08259- 3584 Nov, Affective disorder 296.90 [facility] [address], [place] [address]- 4546 Nov, Diarrhea 787.91 [facility] [address], [place] [address] 2546 Nov, [facility] [address], [place] [address] 2544 Nov, Diarrhea 787.91 [facility] [address], [place] [address] 2546 Nov, Diarrhea 787.91 and Hyperlipidemia 272.4 [facility] [address], [place] [address] 2546 Nov, Diarrhea 787.91 [facility] [id number] [address] 2546 Nov, Affective disorder 296.90 [facility] [address], [place] [address]- 2546 Nov, Affective disorder 296.90 [facility] [id number], [place] [address]- 8996 Nov, Affective disorder 296.90 [facility] [address], [place] [address]- 5112 14 Nov, 2014 [facility] [address], [place] [address]- 3426 Nov, [facility] [address], [place] [address]- 2586 Nov, [facility] [id number] [place] [address] 79923- 4844 Nov, Episodic mood disorder 296.90 [facility] [address], [place] [address]- 3541 Nov, [facility] [id number] [place] [address] 86491- 4786 Nov, [facility] [address], [place] [address]- 1057 Nov, [facility] [address], [place] [address]- 1244 Nov, [facility] [address], [place] [address]- 3053 Nov, [facility] [address], [place] [address]- 2262 Nov, Lymphedema 457.1 ; Hyperlipidemia 272.4 ; Essential hypertension, benign 401.1 and Numbness of toes 782.0 [facility] [address], [place] [address]- 7081 Nov, Episodic mood disorder 296.90 [facility] [address], [place] [address]- 6551 Oct, [facility] [address], [place] [address]- 3815 Oct, [facility] [address], [place] [address]- 1096 Oct, [facility] [id number] [place] [address]- 6794 15 Oct, 2014 [facility] [address] [facility] [id number] [place] [address]- 7164 14 Oct, 2014 [facility] [place] [facility] [address] [facility] [id number] [place] [address]- 7550 Oct, 2014 [facility] [address] [facility] [id number] [place] [address]- 3245 Oct, 2014 [facility] [place] [facility] [address] [facility] [id number] [place] [address]- 9557 Oct, 2014 [facility] [address] [facility] [id number] [place] [address]- 6130 Oct, Episodic mood disorder 296.90 [facility] [id number] [place] [address]- 7924 Sep, [facility] [address] [place] [address]- 2509 Sep, [facility] [address] [facility] [id number] [place] [address]- 3164 Sep, [facility] [place] [facility] [id number] [place] [address]- 6855 Sep, [facility] [id number] [place] [address]- 2655 Sep, [facility] [id number] [address]- 7851 Sep, Episodic mood disorder 296.90 [facility] [address] [facility] [id number] [place] [address]- 9570 Sep, Unspecified episodic mood disorder 296.[address] [facility] [place] [facility] [id number]- 3116 Sep, [facility] [place] [facility] [id number] [place] [address]- 5682 Sep, [facility] [place] [facility] [address], [place] [address]- 9007 Sep, Episodic mood disorder 296.90 [facility] [id number] [place] [address] 27416- 6347 Sep, [facility] [address], [place] [address]- 1811 Sep, [facility] [id number] [place] [address] 59596- 6890 Sep, [facility] [id number] [place] [address] 45089- 7423 Sep, Hematemesis 578.0 and Vomiting 787.03 [facility] [id number] [place] [address] 92369- 7498 Sep, Episodic mood disorder 296.90 [facility] [id number] [place] [address] 72483- 5376 Sep, [facility] [id number] [place] [address] 83420- 9894 Sep, [facility] [id number] [place] [address] 95364- 0163 Sep, Diabetes mellitus without mention of complication, type II or unspecified type, not stated as uncontrolled 250.00 and Other chronic pain 338.29 [facility] [address], [place] [address]- 6280 Sep, Episodic mood disorder 296.90 [facility] [address], [place] [address]- 8860 Sep, [facility] [address] [place] [address] 43083- 5966 Sep, Episodic mood disorder 296.90 [facility] [address]- 2232 Sep, [facility] [address] [place] [address] 70313- 8164 August, [facility] [address] [facility] [id number] [place] [address]- 9788 August, [facility] [address] [facility] [id number] [place] [address]- 5936 August, Episodic mood disorder 296.90 [facility] [id number] [place] [address]- 8746 August, [facility] [id number] [place] [address]- 0840 August, Unspecified episodic mood disorder 296.90 [facility] [id number] [place] [address]- 2746 August, Vomiting 787.03 [facility] [id number] [place] [address]- 2596 August, [facility] [address] [place] [address]- 5626 August, [facility] [id number] [place] [address]- 1206 August, [facility] [address] [place] [address]- 1706 August, [facility] [id number] [place] [address]- 9756 August, [facility] [id number] [place] [address]- 8706 Jul, [facility] [address] [facility] [id number] [place] [address]- 2786 Jul, [facility] [address] [facility] [id number] [place] [address]- 4966 Jul, [facility] [address] [facility] [id number] [place] [address]- 3396 Jun, [facility] [id number] [place] [address]- 7486 Jun, [facility] [place] [facility] [address] [id number] [place] [address]- 6353 30 Jun, 2014 [facility] [place] [facility] [address] [id number] [place] [address]- 6740 Jun, [facility] [place] [facility] [address] [id number] [place] [address] Jun, [facility] [place] [facility] [address] [id number] [place] [address] Jun, [facility] [place] [facility] [address] [id number] [place] [address] Jun, [facility] [place] [facility] [address] [id number] [place] [address] Jun, [facility] [place] [facility] [address] [id number] [place] [address] Jun, [facility] [place] [facility] [address] [id number] [place] [address] Jun, [facility] [place] [facility] [address] [id number] [place] [address] Jun, [facility] [place] [facility] [address] [id number] [place] [address] Jun, [facility] [place] [facility] [address] [id number] [place] [address] Jun, [facility] [place] [facility] [address] [id number] [place] [address] Jun, [facility] [place] [facility] [address] [id number] [place] [address] Jun, [facility] [place] [facility] [address] [id number] [place] [address] Jun, [facility] [place] [facility] [address] [id number] [place] [address] Jun, [facility] [place] [facility] [address] [id number] [place] [address] 23 Jun, 2014 [facility] [place] [facility] [address] [id number] [place] [address] 23 Jun, 2014 [facility] [place] [facility] [address] [id number] [place] [address]- [address] 21 Jun, 2014 [facility] [place] [facility] [address] [id number] [place] [address]- [address] 21 Jun, 2014 [facility] [place] [facility] [address] [id number] [place] [address]- 1018 20 Jun, 2014 [facility] [place] [facility] [address] [id number] [place] [address]- [address]26 20 Jun, 2014 [facility] [place] [facility] [address] [id number] [place] [address] 20 Jun, 2014 [facility] [place] [facility] [address] [id number] [place] [address]- [address] 20 Jun, 2014 [facility] [place] [facility] [address] [id number] [place] [address]- 116[address] 19 Jun, 2014 [facility] [place] [facility] [address] [id number] [place] [address]- [address] 19 Jun, 2014 [facility] [place] [facility] [address] [id number] [place] [address]- [address]16 18 Jun, 2014 [facility] [place] [facility] [address] [id number] [place] [address]- [address] 18 Jun, 2014 [facility] [place] [facility] [address] [id number] [place] [address]- [address] 17 Jun, 2014 [facility] [place] [facility] [address] [id number] [place] [address]- [address] 17 Jun, 2014 [facility] [place] [facility] [address] [id number] [place] [address]- [address] 16 Jun, 2014 [facility] [place] [facility] [address] [id number] [place] [address]- [address] 16 Jun, 2014 [facility] [place] [facility] [address] [id number] [place] [address] 16 Jun, 2014 [facility] [place] [facility] [address] [id number] [place] [address]- 269[address] 16 Jun, 2014 [facility] [place] [facility] [address] [id number] [place] [address]- 8536 16 Jun, 2014 [facility] [place] [facility] [address] [id number] [place] [address] 16 Jun, 2014 [facility] [place] [facility] [address] [id number] [place] [address] 13 Jun, 2014 [facility] [place] [facility] [address] [id number] [place] [address]- [address]38 13 Jun, 2014 [facility] [place] [facility] [address] [id number] [place] [address] Jun, 2014 [facility] [place] [facility] [address] [id number] [place] [address] Jun, 2014 [facility] [place] [facility] [address] [id number] [place] [address] 7595 Jun, [facility] [place] [facility] [address] [id number] [place] [address]- 2661 Jun, 2014 [facility] [place] [facility] [address] [id number] [place] [address]- 0771 Jun, 2014 [facility] [place] [facility] [address] [id number] [place] [address]- 2201 Jun, 2014 [facility] [place] [facility] [address] [id number] [place] [address] 1932 Jun, 2014 [facility] [place] [facility] [address] [id number] [place] [address]- 4942 Jun, 2014 [facility] [place] [facility] [address] [id number] [place] [address]- 1186 Jun, 2014 [facility] [place] [facility] [address] [id number] [place] [address]- 0175 Jun, [facility] [place] [facility] [address] [id number] [place] [address]- 8657 Jun, [facility] [place] [facility] [address] [id number] [place] [address]- 1799 Jun, [facility] [place] [facility] [address] [id number] [place] [address]- 3251 Jun, [facility] [place] [facility] [address] [id number] [place] [address]- 4903 Jun, [facility] [place] [facility] [address] [id number] [place] [address]- 6283 Jun, [facility] [place] [facility] [address] [id number] [place] [address]- 3096 Jun, [facility] [place] [facility] [address] [facility] [id number] [place] [address]- 9716 Jun, [facility] [place] [facility] [address] [id number] [place] [address]- 3953 Jun, [facility] [place] [facility] [address] [id number] [place] [address]- 6546 May, [facility] [place] [facility] [address] [facility] [id number] [place] [address]- 3872 May, [facility] [place] [facility] [address] [id number], [place] [address]- 6364 May, 2014 [facility] [place] [facility] [address] [id number], [place] [address]- 4051 May, 2014 [facility] [place] [facility] [address] [id number] [place] [address]- 1166 May, [facility] [place] [facility] [address] [id number] [place] [address]- 9842 May, [facility] [place] [facility] [address] [facility] [id number] [place] [address]- 6035 May, [facility] [place] [facility] [address] [id number] [place] [address]- 0668 May, 2014 [facility] [place] [facility] [address] [id number] [place] [address]- 0626 May, 2014 [facility] [place] [facility] [address] [facility] [id number] [place] [address]- 2546 May, 2014 [facility] [place] [facility] [address] [facility] [id number] [place] [address]- 2867 18 May, 2014 [facility] [place] [facility] [address] [id number] [place] [address]- 2549 18 May, 2014 [facility] [place] [facility] [address] [facility] [id number] [place] [address]- 7636 13 May, 2014 [facility] [place] [facility] [address] [facility] [id number] [place] [address]- 2780 13 May, 2014 [facility] [place] [facility] [address] [facility] [id number] [place] [address]- 8752 May, 2014 [facility] [place] [facility] [address] [facility] [id number] [place] [address]- 3148 May, 2014 [facility] [place] [facility] [address] [facility] [id number] [place] [address]- 2163 May, 2014 [facility] [place] [facility] [address] [facility] [id number] [place] [address]- 4441 May, 2014 [facility] [place] [facility] [address] [facility] [id number], [place] [address]- 7333 May, 2014 [facility] [place] [facility] [address] [facility] [id number] [place] [address]- 254 May, 2014 [facility] [place] [facility] [address] [facility] [id number] [place] [address]- 6193 May, 2014 [facility] [place] [facility] [address] [facility] [id number] [place] [address]- 6256 May, 2014 [facility] [place] [facility] [address] [facility] [id number] [place] [address]- 1326 May, [facility] [place] [facility] [address] [id number] [place] [address]- 0743 May, [facility] [place] [facility] [address] [id number] [place] [address] May, [facility] [place] [facility] [address] [id number] [place] [address]- 8036 May, [facility] [place] [facility] [address] [id number] [place] [address]- 3348 May, [facility] [place] [facility] [address] [id number] [place] [address]- 7519 Apr, [facility] [place] [facility] [address] [id number] [place] [address]- 4525 Apr, [facility] [place] [facility] [address] [id number] [place] [address]- 5375 Apr, [facility] [place] [facility] [address] [id number] [place] [address]- 0868 Apr, [facility] [place] [facility] [address] [id number] [place] [address]- 3756 Apr, [facility] [place] [facility] [address] [id number] [place] [address]- 6000 Apr, [facility] [place] [facility] [address] [id number] [place] [address]- 2865 Apr, [facility] [place] [facility] [address] [id number] [place] [address]- 8254 Apr, [facility] [place] [facility] [address] [id number] [place] [address]- 9427 Apr, [facility] [place] [facility] [address] [id number] [place] [address]- 5471 Apr, [facility] [place] [facility] [address] [id number] [place] [address]- 6420 Apr, [facility] [place] [facility] [address] [id number] [place] [address]- 7433 Apr, [facility] [place] [facility] [address] [id number] [place] [address]- 8832 Apr, [facility] [place] [facility] [address] [id number] [place] [address]- 1916 Apr, [facility] [place] [facility] [address] [id number] [place] [address]- 6635 Apr, [facility] [place] [facility] [address] [id number] [place] [address]- 1050 Apr, [facility] [place] [facility] [address] [id number] [place] [address]- 7307 Apr, [facility] [place] [facility] [address] [id number] [place] [address]- 0409 Apr, [facility] [place] [facility] [address] [id number] [place] [address]- 0832 Apr, [facility] [place] [facility] [address] [id number] [place] [address]- 3120 Apr, [facility] [place] [facility] [address] [id number] [place] [address]- 7484 Mar, [facility] [place] [facility] [address] [id number] [place] [address]- 3408 Mar, [facility] [place] [facility] [address] [id number] [place] [address]- 4819 Mar, [facility] [place] [facility] [address] [id number] [place] [address]- 8872 Mar, [facility] [place] [facility] [address] [id number] [place] [address]- 1721 Mar, [facility] [place] [facility] [address] [id number] [place] [address] Mar, [facility] [place] [facility] [address] [id number] [place] [address]- 9388 18 Mar, 2014 [facility] [place] [facility] [address] [id number] [place] [address]- 7088 18 Mar, 2014 [facility] [place] [facility] [address] [id number] [place] [address]- 2881 15 Mar, 2014 [facility] [place] [facility] [address] [id number] [place] [address]- 9966 15 Mar, 2014 [facility] [place] [facility] [address] [id number] [place] [address]- 5457 15 Mar, 2014 [facility] [place] [facility] [address] [id number] [place] [address]- 2267 15 Mar, 2014 [facility] [place] [facility] [address] [id number] [place] [address]- 5801 Mar, [facility] [place] [facility] [address] [id number] [place] [address]- 9546 Mar, [facility] [place] [facility] [address] [id number] [place] [address]- 1201 Mar, [facility] [place] [facility] [address] [id number] [place] [address]- 2204 Mar, [facility] [place] [facility] [address] [id number] [place] [address]- 9624 Feb, [facility] [place] [facility] [address] [id number] [place] [address]- 4886 Feb, [facility] [place] [facility] [address] [id number] [place] [address]- 6559 Feb, [facility] [place] [facility] [address] [id number] [place] [address]- 2655 Feb, [facility] [place] [facility] [address] [id number] [place] [address]- 2850 Feb, [facility] [place] [facility] [address] [id number] [place] [address]- 8678 Feb, [facility] [place] [facility] [address] [id number] [place] [address]- 4256 19 Feb, 2014 [facility] [place] [facility] [address] [id number] [place] [address]- 0766 18 Feb, 2014 [facility] [place] [facility] [address] [id number] [place] [address]- 5730 18 Feb, 2014 [facility] [place] [facility] [address] [id number] [place] [address]- 9971 17 Feb, 2014 [facility] [place] [facility] [address] [id number] [place] [address]- 8656 17 Feb, 2014 [facility] [place] [facility] [address] [id number] [place] [address]- 2126 17 Feb, 2014 [facility] [place] [facility] [address] [id number] [place] [address]- 6062 17 Feb, 2014 [facility] [place] [facility] [address] [id number] [place] [address]- 9089 14 Feb, 2014 [facility] [place] [facility] [address] [id number] [place] [address]- 4182 14 Feb, 2014 [facility] [place] [facility] [address] [id number] [place] [address]- 3296 14 Feb, 2014 [facility] [place] [facility] [address] [id number] [place] [address]- 6296 14 Feb, 2014 [facility] [place] [facility] [address] [id number] [place] [address]- 9213 10 Feb, 2014 [facility] [place] [facility] [address] [id number] [place] [address]- 0753 10 Feb, 2014 [facility] [place] [facility] [address] [id number] [place] [address]- 7865 04 Feb, 2014 [facility] [place] [facility] [address] [id number] [place] [address]- 2654 04 Feb, 2014 [facility] [place] [facility] [address] [id number] [place] [address]- 7374 Jan, 2013 [facility] [place] [facility] [address] [id number] [place] [address]- 2844 30 Jan, 2013 [facility] [place] [facility] [address] [id number] [place] [address]- 8366 30 Jan, 2013 [facility] [place] [facility] [address] [id number] [place] [address]- 6109 Jan, [facility] [place] [facility] [address] [id number] [place] [address]- 8935 Jan, [facility] [place] [facility] [address] [id number] [place] [address]- 5739 Jan, [facility] [place] [facility] [address] [id number] [place] [address]- 2037 Jan, [facility] [place] [facility] [address] [id number] [place] [address]- 3759 Jan, [facility] [place] [facility] [address] [id number], [place] [address]- 7202 Jan, [facility] [place] [facility] [address] [id number] [place] [address]- 8892 Jan, [facility] [place] [facility] [address] [id number], [place] [address]- 9582 Jan, [facility] [place] [facility] [address] [id number], [place] [address]- 9256 Jan, 2013 [facility] [place] [facility] [address] [id number], [place] [address]- 9010 Jan, 2013 [facility] [place] [facility] [address] [id number], [place] [address]- 0325 17 Jan, 2013 [facility] [place] [facility] [address] [id number], [place] [address]- 1350 15 Jan, 2014 [facility] [place] [facility] [address] [id number], [place] [address]- 5811 15 Jan, 2014 [facility] [place] [facility] [address] [id number] [place] [address]- 7594 14 Jan, 2014 [facility] [place] [facility] [address] [id number] [place] [address]- 8042 14 Jan, 2014 [facility] [place] [facility] [address] [id number] [place] [address]- 1848 13 Jan, 2014 [facility] [place] [facility] [address] [id number] [place] [address]- 7317 13 Jan, 2014 [facility] [place] [facility] [address] [id number] [place] [address]- 0260 13 Jan, 2014 [facility] [place] [facility] [address] [id number] [place] [address]- 8340 13 Jan, 2014 [facility] [place] [facility] [address] [id number] [place] [address]- 2052 10 Jan, 2014 [facility] [place] [facility] [address] [id number] [place] [address]- 5562 02 Jan, 2014 [facility] [place] [facility] [address] [id number] [place] [address]- 8823 02 Jan, 2014 [facility] [place] [facility] [address] [id number] [place] [address]- 0760 25 Dec, 2013 [facility] [place] [facility] [address] [id number] [place] [address]- 9337 25 Sep, 2013 [facility] [place] [facility] [address] [id number] [place] [address]- 2545 23 Sep, 2013 [facility] [place] [facility] [address] [id number] [place] [address]- 2549 23 Sep, 2013 [facility] [place] [facility] [address] [id number] [place] [address]- 2542 19 Sep, 2013 [facility] [place] [facility] [address] [id number] [place] [address]- 2543 19 Sep, 2013 [facility] [place] [facility] [address] [id number] [place] [address]- 9457 17 Sep, 2013 [facility] [place] [facility] [address] [id number] [place] [address]- 3495 17 Dec, 2013 [facility] [place] [facility] [address] [id number] [place] [address]- 3157 Dec, 2013 [facility] [place] [facility] [address] [id number] [place] [address]- 8794 Dec, 2013 [facility] [place] [facility] [address] [id number] [place] [address]- 8445 08 Dec, 2013 [facility] [place] [facility] [address] [id number] [place] [address]- 6186 08 Dec, 2013 [facility] [place] [facility] [address] [id number] [place] [address]- 8515 Dec, 2013 [facility] [place] [facility] [address] [id number] [place] [address]- 0399 Dec, 2013 [facility] [place] [facility] [address] [id number] [place] [address]- 1299 Dec, 2013 [facility] [place] [facility] [address] [id number] [place] [address]- 2943 Dec, 2013 [facility] [place] [facility] [address] [id number] [place] [address]- 1028 Dec, 2013 [facility] [place] [facility] [address] [id number] [place] [address]- 8362 Dec, 2013 [facility] [place] [facility] [address] [id number] [place] [address]- 8938 Nov, [facility] [place] [facility] [address] [id number] [place] [address]- 9635 Nov, [facility] [place] [facility] [address] [id number] [place] [address]- 2570 Nov, [facility] [place] [facility] [address] [id number] [place] [address]- 0540 Nov, [facility] [place] [facility] [address] [id number] [place] [address]- 4764 Nov, [facility] [place] [facility] [address] [id number] [place] [address]- 1874 Nov, [facility] [place] [facility] [address] [id number] [place] [address]- 5847 Nov, [facility] [place] [facility] [address] [id number] [place] [address]- 6230 Nov, [facility] [place] [facility] [address] [id number] [place] [address]- 0256 Nov, [facility] [place] [facility] [address] [id number] [place] [address]- 2515 Nov, [facility] [place] [facility] [address] [id number] [place] [address]- 1948 Nov, [facility] [place] [facility] [address] [id number] [place] [address]- 1560 Nov, [facility] [place] [facility] [address] [id number] [place] [address]- 5179 Oct, [facility] [place] [facility] [address] [id number] [place] [address]- 9275 Oct, [facility] [place] [facility] [address] [id number] [place] [address]- 8045 Oct, [facility] [place] [facility] [address] [id number] [place] [address]- 7929 Oct, [facility] [place] [facility] [address] [id number] [place] [address]- 8617 Oct, [facility] [place] [facility] [address] [id number] [place] [address]- 7461 Oct, [facility] [place] [facility] [address] [id number] [place] [address]- 6059 Oct, [facility] [place] [facility] [address] [id number] [place] [address]- 0417 Oct, [facility] [place] [facility] [address] [id number] [place] [address]- 5935 22 Oct, 2013 [facility] [place] [facility] [address] [id number] [place] [address]- 3964 22 Oct, 2013 [facility] [place] [facility] [address] [id number] [place] [address]- 9965 16 Oct, 2013 [facility] [place] [facility] [address] [id number] [place] [address]- 1993 16 Oct, 2013 [facility] [place] [facility] [address] [id number] [place] [address]- 9173 14 Oct, 2013 [facility] [place] [facility] [address] [id number] [place] [address]- 6538 14 Oct, 2013 [facility] [place] [facility] [address] [id number] [place] [address]- 4160 13 Oct, 2013 [facility] [place] [facility] [address] [id number] [place] [address]- 6296 13 Oct, 2013 [facility] [place] [facility] [address] [id number] [place] [address]- 9026 2013 [facility] [place] [facility] [address] [id number] [place] [address]- 4721 27 Sep, 2013 [facility] [place] [facility] [address] [id number] [place] [address]- 9467 27 Sep, 2013 [facility] [place] [facility] [address] [id number] [place] [address]- 1070 20 Sep, 2013 [facility] [place] [facility] [address] [id number] [place] [address]- 4864 20 Sep, 2013 [facility] [place] [facility] [address] [id number] [place] [address]- 9165 18 Sep, 2013 [facility] [place] [facility] [address] [id number] [place] [address]- 3903 18 Sep, 2013 [facility] [place] [facility] [address] [id number] [place] [address]- 7893 Sep, [facility] [place] [facility] [address] [id number] [place] [address]- 1431 17 Sep, 2013 [facility] [place] [facility] [address] [id number] [place] [address]- 1029 Sep, [facility] [place] [facility] [address] [id number] [place] [address]- 3586 Sep, [facility] [place] [facility] [address] [id number] [place] [address]- 4189 Sep, [facility] [place] [facility] [address] [id number] [place] [address]- 0342 Sep, [facility] [place] [facility] [address] [id number] [place] [address]- 7496 Sep, [facility] [place] [facility] [address] [id number] [place] [address]- 4244 Sep, [facility] [place] [facility] [address] [id number] [place] [address]- 4320 Sep, [facility] [place] [facility] [address] [id number] [place] [address]- 8988 Sep, [facility] [place] [facility] [address] [id number] [place] [address]- 4950 Sep, [facility] [place] [facility] [address] [id number] [place] [address] Sep, [facility] [place] [facility] [address] [id number] [place] [address] Sep, [facility] [place] [facility] [address] [id number] [place] [address] Sep, [facility] [place] [facility] [address] [id number] [place] [address] Sep, [facility] [place] [facility] [address] [id number] [place] [address] Sep, [facility] [place] [facility] [address] [id number] [place] [address] August, [facility] [address] [id number] [place] [address] August, [facility] [place] [facility] [address] [id number] [place] [address] August, [facility] [address] [id number] [place] [address] August, [facility] [place] [facility] [address] [id number] [place] [address]- [address] August, [facility] [address] [id number] [place] [address] August, [facility] [place] [facility] [address] [id number] [place] [address] August, [facility] [address] [id number] [place] [address] August, [facility] [address] [id number] [place] [address] August, [facility] [address] [id number] [place] [address] August, [facility] [place] [facility] [address] [id number] [place] [address] August, [facility] [facility] [address] [id number] [place] [address] Jul, [facility] [place] [facility] [address] [id number] [place] [address] Jul, [facility] [place] [facility] [address] [id number] [place] [address] Jul, [facility] [place] [facility] [address] [id number] [place] [address] Jul, [facility] [place] [facility] [address] [id number] [place] [address] Jul, [facility] [place] [facility] [address] [id number] [place] [address]- [address] 23 Jul, 2013 [facility] [place] [facility] [address] [id number] [place] [address]- [address] Jul, [facility] [place] [facility] [address] [id number] [place] [address]- [address] Jul, [facility] [place] [facility] [address] [id number] [place] [address]- [address] 18 Jul, 2013 [facility] [place] [facility] [address] [id number] [place] [address] 18 Jul, 2013 [facility] [place] [facility] [address] [id number] [place] [address]- [address] 16 Jul, 2013 [facility] [place] [facility] [address] [id number] [place] [address]- [address]28 14 Jul, 2013 [facility] [place] [facility] [address] [id number] [place] [address]- [address] 14 Jul, 2013 [facility] [place] [facility] [address] [id number] [place] [address]- [address] Jul, [facility] [place] [facility] [address] [id number] [place] [address]- 3267 11 Jul, 2013 [facility] [place] [facility] [address] [id number] [place] [address]- [address] 10 Jul, 2013 [facility] [place] [facility] [address] [id number] [place] [address]- [address]118 10 Jul, 2013 [facility] [place] [facility] [address] [id number] [place] [address]- 4766 05 Jul, 2013 [facility] [place] [facility] [address] [id number] [place] [address]- [address]40 05 Jul, 2013 [facility] [place] [facility] [address] [id number] [place] [address]- [address]47 02 Jul, 2013 [facility] [place] [facility] [address] [id number] [place] [address]- 160[address] Jul, [facility] [place] [facility] [address] [id number] [place] [address]- [address] Jul, [facility] [place] [facility] [address] [id number] [place] [address]- [address] Jul, [facility] [place] [facility] [address] [id number] [place] [address]- [address] Jun, [facility] [place] [facility] [address] [id number] [place] [address]- [address] Jun, [facility] [place] [facility] [address] [id number] [place] [address]- [address] Jun, [facility] [place] [facility] [address] [id number] [place] [address]- [address] Jun, [facility] [place] [facility] [address] [id number] [place] [address]- [address] Jun, [facility] [place] [facility] [address] [id number] [place] [address]- [address] Jun, [facility] [place] [facility] [address] [id number] [place] [address]- [address] Jun, [facility] [place] [facility] [address] [id number] [place] [address]- [address]689 Jun, [facility] [place] [facility] [address] [id number] [place] [address]- [address] Jun, [facility] [place] [facility] [address] [id number], [place] [address]- [address] Jun, [facility] [place] [facility] [address] [id number] [place] [address]- [address] Jun, [facility] [place] [facility] [address] [id number] [place] [address]- [address] Jun, [facility] [place] [facility] [address] [id number] [place] [address]- [address] 18 May, 2013 [facility] [place] [facility] [address] [id number] [place] [address]- [address] May, [facility] [address] [id number] [place] [address]- [address] Apr, [facility] [address] [id number] [place] [address]- [address] Apr, [facility] [address] [id number] [place] [address]- [address] Apr, [facility] [address] [id number] [place] [address]- [address]597 Apr, [facility] [address] [id number] [place] [address]- [address] Apr, [facility] [address] [id number] [place] [address]- 4485 Apr, [facility] [address] [id number] [place] [address]- 8692 Apr, [facility] [address] [id number] [place] [address]- 9055 Apr, [facility] [address] [id number] [place] [address]- [address] Apr, [facility] [address] [id number] [place] [address]- [address] Apr, [facility] [address] [id number] [place] [address]- [address]150 Apr, [facility] [address] [id number] [place] [address]- 0244 Mar, [facility] [place] [facility] [address] [id number] [place] [address] Mar, [facility] [address] [id number] [place] [address]- [address]77 Mar, [facility] [address] [id number] [place] [address]- 79[address] Mar, [facility] [place] [facility] [address] [id number] [place] [address]- [address]266 Feb, [facility] [place] [facility] [address] [id number] [place] [address] Feb, [facility] [place] [facility] [address] [id number], [place] [address] 74[address] Feb, [facility] [place] [facility] [address] [id number], [place] [address] Feb, [facility] [place] [facility] [address] [id number] [place] [address] 9175 Feb, [facility] [place] [facility] [address] [id number], [place] [address] Feb, [facility] [place] [facility] [address] [id number], [place] [address]- 2899 Feb, [facility] [place] [facility] [address] [id number], [place] [address] 3[address] Feb, [facility] [place] [facility] [address] [id number], [place] [address] Feb, [facility] [place] [facility] [address] [facility] [id number], [place] [address]- [address]166 Feb, [facility] [place] [facility] [address] [id number], [place] [address] 72[address] Feb, [facility] [place] [facility] [address] [id number], [place] [address]- 9562 Jan, [facility] [place] [facility] [address] [id number], [place] [address] 4259 Jan, [facility] [place] [facility] [address] [id number], [place] [address] 3675 Jan, [facility] [place] [facility] [address] [facility] [id number], [place] [address] Jan, [facility] [place] [facility] [address] [id number], [place] [address]- [address] 10 Jan, 2013 [facility] [address] [id number] [place] [address]- 6928 10 Jan, 2013 [facility] [place] [facility] [address] [id number] [place] [address]- 5505 03 Jan, 2013 [facility] [place] [facility] [address] [id number] [place] [address]- 1505 02 Jan, 2013 [facility] [place] [facility] [address] [id number] [place] [address]- 2422 30 Dec, 2012 [facility] [place] [facility] [address] [id number] [place] [address]- 3774 25 Dec, 2012 [facility] [place] [facility] [address] [id number] [place] [address]- 3434 18 Dec, 2012 [facility] [place] [facility] [address] [id number] [place] [address]- 8806 17 Dec, 2012 [facility] [place] [facility] [address] [id number] [place] [address]- 1453 17 Dec, 2012 [facility] [place] [facility] [address] [id number] [place] [address]- 6765 16 Dec, 2012 [facility] [place] [facility] [address] [id number] [place] [address]- 3151 13 Dec, 2012 [facility] [place] [facility] [address] [id number] [place] [address]- 2157 11 Dec, 2012 [facility] [place] [facility] [address] [id number] [place] [address]- 2540 05 Dec, 2012 [facility] [place] [facility] [address] [id number] [place] [address]- 4742 04 Dec, 2012 [facility] [place] [facility] [address] [id number] [place] [address]- 3955 30 Nov, 2012 [facility] [place] [facility] [address] [id number] [place] [address]- 7803 29 Nov, 2012 [facility] [place] [facility] [address] [id number] [place] [address]- 1531 22 Nov, 2012 [facility] [place] [facility] [address] [id number] [place] [address]- 2252 16 Nov, 2012 [facility] [place] [facility] [address] [id number] [place] [address]- 7356 14 Nov, 2012 [facility] [place] [facility] [address] [id number] [place] [address]- 0214 Nov, [facility] [place] [facility] [address] [id number] [place] [address]- 2189 05 Nov, 2012 [facility] [place] [facility] [address] [id number] [place] [address]- 1820 Oct, [facility] [place] [facility] [address] [id number] [place] [address]- 5449 Oct, [facility] [place] [facility] [address] [id number] [place] [address]- 2151 Oct, [facility] [place] [facility] [address] [id number] [place] [address]- 0107 Oct, [facility] [place] [facility] [address] [id number] [place] [address]- 6442 Oct, [facility] [place] [facility] [address] [id number] [place] [address]- 8029 Oct, [facility] [place] [facility] [address] [id number] [place] [address]- 9421 Sep, [facility] [place] [facility] [address] [id number] [place] [address]- 9023 28 Sep, 2012 [facility] [place] [facility] [address] [id number] [place] [address]- 2070 27 Sep, 2012 [facility] [place] [facility] [address] [id number] [place] [address]- 3187 14 Sep, 2012 [facility] [place] [facility] [address] [id number] [place] [address]- 0630 Sep, [facility] [address] [id number] [place] [address]- 9776 Sep, [facility] [address] [id number] [place] [address]- 8088 Sep, [facility] [address] [id number] [place] [address]- 6659 Sep, [facility] [address] [id number] [place] [address]- 3584 Sep, [facility] [address] [id number] [place] [address]- 3881 August, [facility] [address] [id number] [place] [address]- 7370 August, [facility] [address] [id number] [place] [address]- 3070 August, [facility] [address] [id number] [place] [address]- 4025 August, [facility] [address] [id number] [place] [address]- 3497 August, [facility] [address] [id number] [place] [address]- 7741 August, [facility] [address] [id number] [place] [address]- 9952 August, [facility] [address] [id number] [place] [address]- 6509 August, [facility] [address] [id number] [place] [address]- 0701 Jul, [facility] [address] [id number] [place] [address]- 8359 Jul, [facility] [address] [place] [id number] Jul [facility] [address] [id number] [place] [address]- 1456 Jun, [facility] [address] [id number] [place] [address]- 5232 Jun, [facility] [address] [id number] [place] [address]- 7011 Jun, [facility] [address] [facility] [id number] [place] [address]- 0635 Jun, [facility] [address] [id number] [place] [address]- 1893 Jun, [facility] [address] [id number] [place] [address]- 4781 Jun, [facility] [address] [id number] [place] [address]- 5945 May, [facility] [address] [facility] [id number] [place] [address]- 2907 May, [facility] [address] [id number] [place] [address]- 8879 May, [facility] [address] [id number] [place] [address]- 3729 May, [facility] [address] [facility] [id number] [place] [address]- 4255 May, [facility] [address] [id number], [place] [address]- 3070 Apr, [facility] [place] [facility] [address] [id number], [place] [address]- 5574 Apr, [facility] [place] [facility] [address] [id number] [place] [address]- 2501 Apr, [facility] [place] [facility] [address] [id number], [place] [address]- 6362 Apr, [facility] [place] [facility] [address] [facility] [id number], [place] [address]- 3168 Apr, [facility] [place] [facility] [address] [id number] [place] [address]- 4736 Apr, [facility] [place] [facility] [address] [id number] [place] [address]- 9236 Mar, [facility] [place] [facility] [address] [id number] [place] [address] 2546 Mar, [facility] [place] [facility] [address] [id number] [place] [address]- 7406 Mar, [facility] [place] [facility] [address] [id number] [place] [address]- 6628 Mar, [facility] [place] [facility] [address] [id number] [place] [address]- 0786 Mar, [facility] [place] [facility] [address] [id number] [place] [address]- 4735 Mar, [facility] [place] [facility] [address] [id number] [place] [address]- 0052 Mar, [facility] [place] [facility] [address] [id number] [place] [address]- 7465 Mar, [facility] [place] [facility] [address] [id number] [place] [address]- 4339 Mar, [facility] [place] [facility] [address] [id number] [place] [address] Mar, [facility] [place] [facility] [address] [id number] [place] [address]- 6901 Mar, [facility] [place] [facility] [address] [id number] [place] [address]- 0458 Feb, [facility] [place] [facility] [address] [id number] [place] [address]- 4196 Feb, [facility] [place] [facility] [address] [id number] [place] [address]- 0796 Feb, [facility] [place] [facility] [address] [id number] [place] [address]- 7245 Feb, [facility] [place] [facility] [address] [id number] [place] [address]- 2124 Feb, [facility] [place] [facility] [address] [id number] [place] [address]- 4392 Feb, [facility] [place] [facility] [address] [facility] [id number] [place] [address] Feb, [facility] [place] [facility] [id number] [place] [address], [place] [address]- 8773 Feb, [facility] [place] [facility] [address] [id number] [place] [address]- 2846 Feb, [facility] [place] [facility] [address] [id number] [place] [address], [place] [address]- 0433 Feb, [facility] [place] [facility] [address] [facility] [id number] [place] [address]- 0136 Feb, [facility] [place] [facility] [address] [id number], [place] [address]- 6771 Jan, [facility] [place] [facility] [address] [id number], [place] [address]- 2436 Jan, [facility] [place] [facility] [address] [facility] [id number], [place] [address]- 5640 Jan, [facility] [place] [facility] [address] [id number], [place] [address]- 5797 Jan, [facility] [place] [facility] [address] [id number], [place] [address]- 9692 Jan, [facility] [place] [facility] [address] [id number], [place] [address]- 7907 Jan, [facility] [place] [facility] [address] [facility] [id number], [place] [address]- 7325 Jan, [facility] [place] [facility] [address] [facility] [id number], [place] [address]- 8597 24 Dec, 2011 [facility] [place] [facility] [address] [id number] [place] [address]- 3438 17 Dec, 2011 [facility] [place] [facility] [address] [id number] [place] [address]- 5346 13 Dec, 2011 [facility] [place] [facility] [address] [id number] [place] [address]- 2616 12 Dec, 2011 [facility] [place] [facility] [address] [id number] [place] [address]- 0526 23 Nov, 2011 [facility] [place] [facility] [address] [id number] [place] [address] 2546 20 Nov, 2011 [facility] [place] [facility] [address] [id number] [place] [address]- 2956 17 Nov, 2011 [facility] [place] [facility] [address] [id number] [place] [address]- 6376 15 Nov, 2011 [facility] [place] [facility] [address] [id number] [place] [address]- 0006 14 Nov, 2011 [facility] [place] [facility] [address] [id number] [place] [address]- 3351 Nov, [facility] [place] [facility] [address] [id number] [place] [address]- 4014 Nov, [facility] [place] [facility] [address] [id number] [place] [address]- 6950 Nov, [facility] [place] [facility] [address] [id number] [place] [address]- 6706 Nov, [facility] [place] [facility] [address] [id number] [place] [address]- 2540 Nov, [facility] [place] [facility] [address] [id number] [place] [address]- 7469 Nov, [facility] [place] [facility] [address] [id number] [place] [address]- 8956 Nov, [facility] [place] [facility] [address] [id number] [place] [address]- 4283 Nov, [facility] [place] [facility] [address] [id number] [place] [address]- 8647 Oct, [facility] [place] [facility] [address] [id number] [place] [address]- 4071 Oct, [facility] [place] [facility] [address] [id number] [place] [address]- 1019 Oct, [facility] [place] [facility] [address] [id number] [place] [address]- 0956 Oct, [facility] [place] [facility] [address] [id number] [place] [address]- 4308 Oct, [facility] [place] [facility] [address] [id number] [place] [address]- 2733 Oct, [facility] [place] [facility] [address] [id number] [place] [address]- 2373 Oct, [facility] [place] [facility] [address] [id number] [place] [address]- 5376 Oct, [facility] [place] [facility] [address] [id number] [place] [address]- 5498 Oct, [facility] [place] [facility] [address] [id number] [place] [address]- 7361 Sep, [facility] [place] [facility] [address] [id number] [place] [address]- 1115 Sep, [facility] [place] [facility] [address] [id number] [place] [address]- 5042 Sep, [facility] [place] [facility] [address] [id number] [place] [address]- 2675 Sep, [facility] [place] [facility] [address] [id number] [place] [address]- 0023 Sep, [facility] [place] [facility] [address] [id number] [place] [address]- 5851 Sep, [facility] [place] [facility] [address] [id number], [place] [address]- 2546 Sep, [facility] [address] [id number], [place] [address]- 1753 Sep, [facility] [address] [id number], [place] [address]- 5476 August, [facility] [id number], [place] [address]- 2000 August, [facility] [id number], [place] [address]- 5671 August, [facility] [address] [id number], [place] [address]- 7974 August, [facility] [id number], [place] [address]- 8125 August, [facility] [id number], [place] [address]- 7272 August, [facility] [id number], [place] [address]- 2835 August, [facility] [id number], [place] [address]- 4744 August, [facility] [id number] [address] 1416 August, [facility] [address] [id number], [place] [address]- 7603 August, [facility] [address] [id number], [place] [address]- 7008 August, [facility] [address] [id number], [place] [address]- 3408 August, [facility] [id number], [place] [address]- 9624 Oct, IMMUNIZATIONS No Known Immunizations SOCIAL HISTORY Never Assessed REASON FOR VISIT Refill request PLAN OF CARE VITAL SIGNS MEDICATIONS Medication Instructions Dosage Frequency Start Date End Date Duration Status Metformin HCl 1000 MG Orally Twice a day 1 tablet with meals 12h Active RESULTS No Results PROCEDURES No [...] Surgical History bladder surgery Hospitalization History Via [facility] for right groin pain 05/2011 Hospitalization History Via [facility] for wound on buttocks 08/2012 [...]
[2017-11-24 18:39] LABS: BILIRUBIN,URINE NEGATIVE (NEGATIVE); CLARITY,URINE CLEAR; COLOR,URINE YELLOW; GLUCOSE, URINE (UA) NEGATIVE (NEGATIVE); KETONES,URINE NEGATIVE (NEGATIVE); LEUKOCYTE ESTERASE ,URINE 2+ (NEGATIVE); NITRITE,URINE NEGATIVE (NEGATIVE); PH,URINE 7 (5-9); PROTEIN,URINE 3+ (NEGATIVE); UROBILINOGEN,URINE NORMAL (NORMAL)
--- OUTSIDE RECORDS SUMMARY | 2017-11-24 18:40 | XMS REPORT ---
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 6975 Sep, Episodic mood disorder 296.90 [facility] [address] [address]- 5238 Sep, [facility] [id number] [place] [address] 05145- 1793 August, [facility] [address] [address]- 3922 August, [facility] [id number] [place] [address] 91605- 1738 August, Episodic mood disorder 296.90 [facility] [address] [address]- 3137 August, [facility] [id number] [place] [address] 12492- 2226 August, Unspecified episodic mood disorder 296.90 [facility] [address] [address]- 3522 August, Vomiting 787.03 [facility] [address] [address]- 1731 August, [facility] [address] [address]- 5057 August, [facility] [address] [address]- 1203 August, [facility] [address] [address]- 4203 August, [facility] [address] [address]- 2546 August, [facility] [place] [facility] [address] [id number] [place] [address]- 8694 28 Jul, 2014 [facility] [place] [facility] [address] [id number] [place] [address]- 2586 Jul, [facility] [place] [facility] [address] [id number] [place] [address]- 5595 Jul, [facility] [place] [facility] [address] [id number] [place] [address]- 1274 30 Jun, 2014 [facility] [place] [facility] [address] [id number] [place] [address]- 8567 Jun, [facility] [place] [facility] [address] [id number] [place] [address]- 6969 Jun, [facility] [place] [facility] [address] [id number] [place] [address]- 9867 Jun, [facility] [place] [facility] [address] [id number] [place] [address]- 3073 Jun, [facility] [place] [facility] [address] [id number] [place] [address]- 3472 Jun, [facility] [place] [facility] [address] [id number] [place] [address]- 8784 Jun, [facility] [place] [facility] [address] [id number] [place] [address]- 6609 Jun, [facility] [place] [facility] [address] [id number] [place] [address]- 0299 Jun, [facility] [place] [facility] [address] [id number] [place] [address]- 4368 Jun, [facility] [place] [facility] [address] [id number] [place] [address]- 3128 Jun, [facility] [place] [facility] [address] [id number] [place] [address]- 1640 Jun, [facility] [place] [facility] [address] [id number] [place] [address]- 5428 26 Jun, 2014 [facility] [place] [facility] [address] [id number] [place] [address]- 4267 26 Jun, 2014 [facility] [place] [facility] [address] [id number] [place] [address]- 4772 24 Jun, 2014 [facility] [place] [facility] [address] [id number] [place] [address]- 7676 Jun, [facility] [place] [facility] [address] [id number] [place] [address]- 9203 Jun, [facility] [place] [facility] [address] [id number] [place] [address]- 7503 Jun, [facility] [place] [facility] [address] [id number] [place] [address]- 4442 Jun, [facility] [place] [facility] [address] [id number] [place] [address]- 2811 Jun, [facility] [place] [facility] [address] [id number] [place] [address]- 4017 Jun, [facility] [place] [facility] [address] [id number] [place] [address]- 6163 Jun, [facility] [place] [facility] [address] [id number] [place] [address]- 6571 20 Jun, 2014 [facility] [place] [facility] [address] [id number] [place] [address]- 3938 20 Jun, 2014 [facility] [place] [facility] [address] [id number] [place] [address]- 0138 20 Jun, 2014 [facility] [place] [facility] [address] [id number] [place] [address]- 3359 19 Jun, 2014 [facility] [place] [facility] [address] [id number] [place] [address]- 8587 19 Jun, 2014 [facility] [place] [facility] [address] [id number] [place] 8376 18 Jun, 2014 [facility] [place] [facility] [address] [id number] [place] [address]- 9980 18 Jun, 2014 [facility] [place] [facility] [address] [id number] [place] [address]- 5076 17 Jun, 2014 [facility] [place] [facility] [address] [id number] [place] [address]- 5634 17 Jun, 2014 [facility] [place] [facility] [address] [id number] [place] [address]- 5549 16 Jun, 2014 [facility] [place] [facility] [address] [id number] [place] [address]- 2567 16 Jun, 2014 [facility] [place] [facility] [address] [id number] [place] [address]- 0478 16 Jun, 2014 [facility] [place] [facility] [address] [id number] [place] [address]- 9851 16 Jun, 2014 [facility] [place] [facility] [address] [id number] [place] [address]- 0924 16 Jun, 2014 [facility] [place] [facility] [address] [id number] [place] [address]- 0812 16 Jun, 2014 [facility] [place] [facility] [address] [id number] [place] [address]- 4836 13 Jun, 2014 [facility] [place] [facility] [address] [id number] [place] [address]- 0810 13 Jun, 2014 [facility] [place] [facility] [address] [id number] [place] [address]- 8442 12 Jun, 2014 [facility] [place] [facility] [address] [id number] [place] [address]- 4437 12 Jun, 2014 [facility] [place] [facility] [address] [id number] [place] [address]- 4384 09 Jun, 2014 [facility] [place] [facility] [address] [id number] [place] [address]- 8368 09 Jun, 2014 [facility] [place] [facility] [address] [id number] [address]- 1891 Jun, [facility] [place] [facility] [address] [id number] [place] [address]- 9678 Jun, [facility] [place] [facility] [address] [id number] [place] [address]- 7036 Jun, [facility] [place] [facility] [address] [facility] [id number] [place] [address]- 6419 Jun, [facility] [place] [facility] [address] [id number] [place] [address]- 2513 Jun, [facility] [place] [facility] [address] [id number] [place] [address]- 2229 Jun, [facility] [place] [facility] [address] [id number] [place] [address]- 6157 Jun, [facility] [place] [facility] [address] [facility] [id number] [place] [address]- 6239 Jun, [facility] [place] [facility] [address] [facility] [id number] [place] [address]- 6586 Jun, [facility] [place] [facility] [address] [id number] [place] [address]- 0166 Jun, [facility] [place] [facility] [address] [facility] [id number] [place] [address]- 9823 Jun, [facility] [place] [facility] [address] [id number] [place] [address]- 7982 Jun, [facility] [place] [facility] [address] [facility] [id number] [address]- 9102 Jun, [facility] [place] [facility] [address] [id number] [place] [address]- 7959 Jun, [facility] [place] [facility] [address] [facility] [id number] [place] [address]- 3557 May, [facility] [place] [facility] [address] [facility] [id number] 5658 May, [facility] [place] [facility] [address] [id number] [place] [address]- 8482 May, 2014 [facility] [place] [facility] [address] [id number] [place] [address]- 5406 May, 2014 [facility] [place] [facility] [address] [id number] [place] [address]- 6886 May, 2014 [facility] [place] [facility] [address] [id number] [place] [address]- 2542 May, 2014 [facility] [place] [facility] [address] [id number] [place] [address]- 0769 May, 2014 [facility] [place] [facility] [address] [id number] [place] [address]- 1890 May, 2014 [facility] [place] [facility] [id number] [place] [address]- 9999 May, 2014 [facility] [place] [facility] [address] [facility] [id number] [place] [address]- 9991 May, 2014 [facility] [place] [facility] [address] [facility] [id number] [place] [address]- 2846 18 May, 2014 [facility] [place] [facility] [address] [facility] [id number] [place] [address]- 4845 18 May, 2014 [facility] [place] [facility] [address] [facility] [id number] [place] [address]- 0175 13 May, 2014 [facility] [place] [facility] [address] [facility] [id number] [place] [address]- 2547 13 May, 2014 [facility] [place] [facility] [address] [facility] [id number] [place] [address]- 2546 May, 2014 [facility] [place] [facility] [address] [facility] [id number] [place] [address]- 6486 May, 2014 [facility] [place] [facility] [address] [facility] [id number] [place] [address] May, 2014 [facility] [place] [facility] [address] [id number] [place] [address] May, 2014 [facility] [place] [facility] [address] [id number] [place] [address] May, 2014 [facility] [place] [facility] [address] [id number] [place] [address] May, 2014 [facility] [place] [facility] [address] [id number] [place] [address] May, 2014 [facility] [place] [facility] [address] [id number] [place] [address] May, 2014 [facility] [place] [facility] [address] [id number] [place] [address] May, 2014 [facility] [place] [facility] [address] [id number] [place] [address] May, 2014 [facility] [place] [facility] [address] [id number] [address] May, 2014 [facility] [place] [facility] [address] [id number] [place] [address] May, 2014 [facility] [place] [facility] [address] [id number] [place] [address] May, [facility] [place] [facility] [address] [id number] [place] [address] Apr, [facility] [place] [facility] [address] [id number] [place] [address] Apr, [facility] [place] [facility] [address] [id number] [place] [address] Apr, [facility] [place] [facility] [address] [id number] [place] [address] Apr, [facility] [place] [facility] [address] [id number] [place] [address] Apr, [facility] [place] [facility] [address] [id number] [place] [address] Apr, [facility] [place] [facility] [address] [id number] [place] [address] Apr, [facility] [place] [facility] [address] [id number] [place] [address] Apr, [facility] [place] [facility] [address] [id number] [place] [address] Apr, [facility] [place] [facility] [address] [id number] [place] [address] Apr, [facility] [place] [facility] [address] [id number] [place] [address] Apr, [facility] [place] [facility] [address] [id number] [place] [address] Apr, [facility] [place] [facility] [address] [id number] [place] [address] Apr, [facility] [place] [facility] [address] [id number] [place] [address] Apr, [facility] [place] [facility] [address] [id number] [place] [address]- [address] Apr, [facility] [place] [facility] [address] [id number] [place] [address] Apr, [facility] [place] [facility] [address] [id number] [place] [address] Apr, [facility] [place] [facility] [address] [id number] [place] [address] Apr, [facility] [place] [facility] [address] [id number] [place] [address] Apr, [facility] [place] [facility] [address] [id number] [place] [address] Apr, [facility] [place] [facility] [address] [id number] [place] [address] Mar, [facility] [place] [facility] [address] [id number] [place] [address] Mar, [facility] [place] [facility] [address] [id number] [place] [address] Mar, [facility] [place] [facility] [address] [id number] [place] [address] Mar, [facility] [place] [facility] [address] [id number] [place] [address] Mar, [facility] [place] [facility] [address] [id number] [place] [address] Mar, [facility] [place] [facility] [address] [id number] [place] [address] Mar, [facility] [place] [facility] [address] [id number] [place] [address] Mar, [facility] [place] [facility] [address] [id number] [place] [address] 15 Mar, 2014 [facility] [place] [facility] [address] [id number] [place] [address] 15 Mar, 2014 [facility] [place] [facility] [address] [id number] [place] [address] 15 Mar, 2014 [facility] [facility] [address] [id number] [place] [address] 15 Mar, 2014 [facility] [place] [facility] [address] [id number] [place] [address] 6472 Mar, [facility] [place] [facility] [address] [id number] [place] [address] Mar, [facility] [place] [facility] [address] [id number] [place] [address] Mar, [facility] [facility] [address] [id number] [place] [address] 59[address] Mar, [facility] [place] [facility] [address] [id number] [place] [address] 1823 Feb, [facility] [place] [facility] [address] [id number] [place] [address]- 5535 Feb, [facility] [place] [facility] [address] [id number] [place] [address] 8705 Feb, [facility] [place] [facility] [address] [id number] [place] [address] 8694 Feb, [facility] [place] [facility] [address] [id number] [place] [address]- 6779 Feb, [facility] [place] [facility] [address] [id number] [place] [address] 5918 Feb, [facility] [place] [facility] [address] [id number] [place] [address]- 0018 Feb, [facility] [place] [facility] [address] [id number] [place] [address]- 3875 18 Feb, 2014 [facility] [place] [facility] [address] [id number] [place] [address]- 0893 18 Feb, 2014 [facility] [place] [facility] [address] [id number] [place] [address]- 2568 17 Feb, 2014 [facility] [place] [facility] [address] [id number] [place] [address]- 7354 17 Feb, 2014 [facility] [place] [facility] [address] [id number] [place] [address]- 8272 17 Feb, 2014 [facility] [place] [facility] [address] [id number] [address] 17 Feb, 2014 [facility] [place] [facility] [address] [id number] [place] [address]- 3250 14 Feb, 2014 [facility] [place] [facility] [address] [id number] [place] [address] 4548 14 Feb, 2014 [facility] [place] [facility] [address] [id number] [place] [address]- 9861 14 Feb, 2014 [facility] [place] [facility] [address] [id number] [place] [address]- 3937 14 Feb, 2014 [facility] [place] [facility] [address] [id number] [place] [address]- 3366 10 Feb, 2014 [facility] [place] [facility] [address] [id number] [place] [address]- 2617 10 Feb, 2014 [facility] [place] [facility] [address] [id number] [place] [address]- 4988 Feb, [facility] [place] [facility] [address] [id number] [place] [address]- 0671 Feb, [facility] [place] [facility] [address] [id number] [place] [address]- 5592 Jan, [facility] [place] [facility] [address] [id number] [place] [address]- 4686 Jan, [facility] [place] [facility] [address] [id number] [place] [address]- 4643 Jan, [facility] [facility] [address] [id number] [place] [address]- 9461 Jan, [facility] [place] [facility] [address] [id number] [place] [address]- 9823 Jan, [facility] [place] [facility] [address] [id number] [place] [address]- 1270 Jan, [facility] [facility] [address] [id number] [place] [address]- 1280 Jan, [facility] [address] [id number] [place] [address]- 8373 Jan, [facility] [address] [id number] [place] [address]- 2363 Jan, [facility] [address] [id number] [place] [address]- 5800 Jan, [facility] [address] [id number] [place] [address]- 4626 Jan, [facility] [place] [facility] [address] [id number] [place] [address]- 5390 17 Jan, 2013 [facility] [place] [facility] [address] [id number] [place] [address]- 5197 17 Jan, 2013 [facility] [place] [address] [id number] [place] [address]- 2298 17 Jan, 2014 [facility] [place] [address] [id number] [place] [address]- 6133 15 Jan, 2014 [facility] [address] [id number] [place] [address]- 1879 15 Jan, 2014 [facility] [address] [id number] [place] [address]- 2838 14 Jan, 2014 [facility] [address] [id number] [place] [address]- 9521 14 Jan, 2014 [facility] [address] [id number] [place] [address]- 9032 13 Jan, 2014 [facility] [address] [id number] [place] [address]- 4708 13 Jan, 2014 [facility] [address] [id number] [place] [address]- 0467 13 Jan, 2014 [facility] [address] [id number] [place] [address]- 1285 13 Jan, 2014 [facility] [address] [id number] [place] [address]- 0915 10 Jan, 2014 [facility] [address] [id number] [place] [address]- 2229 02 Jan, 2014 [facility] [address] [id number] [place] [address]- 7234 02 Jan, 2014 [facility] [address] [id number] [place] [address]- 8309 25 Dec, 2013 [facility] [address] [id number] [place] [address]- 6193 25 Sep, 2013 [facility] [address] [id number] [place] [address]- 0480 23 Sep, 2013 [facility] [address] [id number] [place] [address]- 6206 23 Sep, 2013 [facility] [place] [address] [id number] [place] [address] 2546 19 Sep, 2013 [facility] [address] [id number] [place] [address]- 2547 19 Sep, 2013 [facility] [address] [id number] [place] [address]- 7638 17 Sep, 2013 [facility] [place] [facility] [address] [id number] [place] [address]- 1887 17 Sep, 2013 [facility] [address] [id number] [place] [address]- 7597 09 Sep, 2013 [facility] [address] [id number] [place] [address]- 0555 09 Sep, 2013 [facility] [address] [id number] [place] [address]- 9453 08 Sep, 2013 [facility] [address] [id number] [place] [address]- 2212 08 Sep, 2013 [facility] [address] [id number] [place] [address]- 3383 04 Sep, 2013 [facility] [address] [id number] [place] [address]- 2542 04 Sep, 2013 [facility] [address] [id number] [place] [address]- 2544 02 Sep, 2013 [facility] [address] [id number] [place] [address]- 9177 02 Sep, 2013 [facility] [address] [id number] [place] [address]- 8029 02 Sep, 2013 [facility] [address] [id number] [place] [address]- 0444 Dec, [facility] [address] [id number] [place] [address]- 8643 Nov, [facility] [address] [id number] [place] [address]- 3947 Nov, [facility] [address] [id number] [place] [address]- 8453 Nov, [facility] [address] [id number] [place] [address]- 2177 Nov, [facility] [address] [id number] [place] [address]- 9628 Nov, [facility] [address] [id number] [place] [address]- 2062 Nov, [facility] [address] [id number] [place] [address]- 0231 Nov, [facility] [address] [id number] [place] [address]- 3470 Nov, [facility] [address] [id number] [place] [address]- 6095 Nov, [facility] [address] [id number] [place] [address]- 6764 Nov, [facility] [address] [id number] [place] [address]- 1871 Nov, [facility] [address] [id number] [place] [address]- 4060 Nov, [facility] [address] [id number] [place] [address]- 4805 Oct, [facility] [address] [id number] [place] [address]- 8546 Oct, [facility] [address] [id number] [place] [address]- 2979 Oct, [facility] [address] [id number] [place] [address]- 2415 Oct, [facility] [address] [id number] [place] [address]- 9858 Oct, [facility] [address] [id number] [place] [address]- 2290 Oct, [facility] [address] [id number] [place] [address]- 5208 Oct, [facility] [address] [id number] [place] [address]- 7958 Oct, [facility] [address] [id number] [place] [address]- 2193 Oct, [facility] [address] [id number] [place] [address]- 5312 Oct, [facility] [address] [id number] [place] [address]- 5802 Oct, [facility] [address] [id number] [place] [address]- 2823 Oct, [facility] [address] [id number] [place] [address]- 1745 Oct, [facility] [address] [id number] [place] [address]- 3562 Oct, [facility] [address] [id number] [place] [address]- 8775 Oct, [facility] [address] [id number] [place] [address]- 4253 Oct, [facility] [address] [id number] [place] [address]- 1590 Oct, [facility] [address] [id number] [place] [address]- 5873 Sep, [facility] [address] [id number] [place] [address]- 7479 Sep, [facility] [address] [id number] [place] [address]- 1509 Sep, [facility] [address] [id number] [place] [address]- 0958 20 Sep, 2013 [facility] [address] [id number] [place] [address]- 6338 18 Sep, 2013 [facility] [address] [id number] [place] [address]- 2608 18 Sep, 2013 [facility] [address] [id number] [place] [address]- 6082 17 Sep, 2013 [facility] [address] [id number] [place] [address]- 9017 17 Sep, 2013 [facility] [address] [facility] [id number] [place] [address]- 6337 Sep, [facility] [address] [id number] [place] [address]- 7003 Sep, [facility] [address] [id number] [place] [address]- 4475 Sep, [facility] [address] [facility] [id number] [place] [address]- 5601 Sep, [facility] [address] [id number] [place] [address]- 3643 Sep, [facility] [address] [id number] [place] [address]- 9387 Sep, [facility] [address] [id number] [place] [address]- 9642 09 Sep, 2013 [facility] [address] [id number] [place] [address]- 0294 09 Sep, 2013 [facility] [address] [facility] [id number] [place] [address]- 6272 07 Sep, 2013 [facility] [address] [id number] [place] [address]- 0601 Sep, [facility] [address] [id number] [place] [address]- 1484 Sep, [facility] [address] [id number] [place] [address]- 0778 Sep, [facility] [address] [id number] [place] [address]- 2442 Sep, [facility] [address] [id number] [place] [address]- 2539 Sep, [facility] [address] [id number] [place] [address]- 5446 August, [facility] [address] [id number] [place] [address]- 3471 August, [facility] [address] [id number] [place] [address]- 1391 August, [facility] [address] [id number] [place] [address]- 3686 August, [facility] [address] [id number] [place] [address]- 6725 August, [facility] [address] [id number] [place] [address]- 5635 August, [facility] [address] [id number] [place] [address]- 6830 August, [facility] [address] [id number] [place] [address]- 2193 August, [facility] [address] [id number] [place] 7733 August, [facility] [address] [id number] [place] [address]- 4147 August, [facility] [address] [id number] [place] [address]- 5053 August, [facility] [address] [id number] [place] [address]- 3449 Jul, [facility] [address] [id number] [place] [address]- 5540 Jul, [facility] [address] [id number] [place] [address]- 1883 Jul, [facility] [address] [id number] [place] [address]- 2386 Jul, [facility] [place] [facility] [address] [id number] [place] [address]- 0041 Jul, [facility] [place] [facility] [address] [id number] [place] [address]- 4711 Jul, [facility] [facility] [address] [id number] [place] [address]- 1203 Jul, [facility] [facility] [address] [id number] [place] [address]- 5996 Jul, [facility] [address] [id number] [place] [address]- 9678 Jul, [facility] [facility] [address] [id number] [place] [address]- 8560 Jul, [facility] [address] [id number] [place] [address]- 2182 16 Jul, 2013 [facility] [facility] [address] [id number] [place] [address]- 5115 Jul, [facility] [place] [facility] [address] [id number] [place] [address]- 0150 Jul, [facility] [place] [facility] [address] [id number] [place] [address]- 5574 Jul, [facility] [place] [facility] [address] [id number] [place] [address]- 5066 Jul, [facility] [place] [facility] [address] [id number] [place] [address]- 7526 Jul, [facility] [place] [facility] [address] [id number] [place] [address]- 9747 Jul, [facility] [place] [facility] [address] [id number] [place] [address]- 7704 Jul, [facility] [place] [facility] [address] [id number] [place] [address]- 4933 Jul, [facility] [place] [facility] [address] [id number] [place] [address]- 7375 Jul, [facility] [place] [facility] [address] [id number] [place] [address]- 7045 Jul, [facility] [place] [facility] [address] [id number] [place] [address]- 9782 Jul, [facility] [place] [facility] [address] [id number] [place] [address]- 8825 Jul, [facility] [place] [facility] [address] [id number] [place] [address]- 1321 Jun, [facility] [place] [facility] [address] [id number] [place] [address]- 4796 Jun, [facility] [place] [facility] [address] [id number] [place] [address]- 1954 Jun, [facility] [place] [facility] [address] [id number] [place] [address]- 6428 Jun, [facility] [place] [facility] [address] [id number] [place] [address]- 6864 Jun, [facility] [place] [facility] [address] [id number] [place] [address]- 8526 Jun, [facility] [place] [facility] [address] [id number] [place] [address]- 7287 Jun, [facility] [place] [facility] [address] [id number] [place] [address]- 0475 Jun, [facility] [place] [facility] [address] [id number] [place] [address]- 9725 18 Jun, 2013 [facility] [place] [facility] [address] [id number] [place] [address]- 7852 18 Jun, 2013 [facility] [place] [facility] [address] [id number] [place] [address]- 7338 17 Jun, 2013 [facility] [place] [facility] [address] [id number] [place] [address]- 5198 17 Jun, 2013 [facility] [place] [facility] [address] [id number] [place] [address]- 3127 May, [facility] [place] [facility] [address] [id number] [place] [address]- 4543 May, [facility] [place] [facility] [address] [id number] [place] [address]- 1718 Apr, [facility] [place] [facility] [address] [id number] [place] [address]- 4890 Apr, [facility] [place] [facility] [address] [id number] [place] [address]- 0008 Apr, [facility] [place] [facility] [address] [id number] [place] [address]- 4970 Apr, [facility] [place] [facility] [address] [id number] [place] [address]- 1609 Apr, [facility] [place] [facility] [address] [id number] [place] [address]- 9127 Apr, [facility] [place] [facility] [address] [id number] [place] [address]- 5583 Apr, [facility] [place] [facility] [address] [id number] [place] [address]- 9895 Apr, [facility] [place] [facility] [address] [id number] [place] [address]- 4745 14 Apr, 2013 [facility] [place] [facility] [address] [id number] [address]- 3753 Apr, [facility] [address] [id number] [place] [address]- 6629 Apr, [facility] [place] [facility] [address] [id number] [place] [address]- 1325 Mar, [facility] [place] [facility] [address] [id number] [place] [address]- 4758 Mar, [facility] [place] [facility] [address] [id number] [place] [address]- 2309 Mar, [facility] [place] [facility] [address] [id number] [place] [address]- 7648 Mar, [facility] [place] [facility] [address] [id number] [place] [address]- 7059 Feb, [facility] [place] [facility] [address] [id number] [place] [address]- 1447 Feb, [facility] [place] [facility] [address] [id number] [place] [address]- 7584 Feb, [facility] [place] [facility] [address] [id number] [place] [address]- 5372 Feb, [facility] [place] [facility] [address] [id number] [place] [address]- 3957 Feb, [facility] [place] [facility] [address] [id number] [place] [address]- 0171 Feb, [facility] [place] [facility] [address] [id number] [place] [address]- 8167 Feb, [facility] [place] [facility] [address] [id number] [place] [address]- 9010 Feb, [facility] [place] [facility] [address] [id number] [place] [address]- 2048 Feb, [facility] [place] [facility] [address] [id number] [place] [address]- 5413 Feb, [facility] [place] [facility] [address] [id number] [place] [address]- 1148 02 Feb, 2013 [facility] [place] [facility] [address] [id number] [place] [address]- 4406 Jan, 2012 [facility] [place] [facility] [address] [id number] [place] [address]- 0322 Jan, [facility] [place] [facility] [address] [id number] [place] [address]- 7650 Jan, 2012 [facility] [place] [facility] [address] [id number] [place] [address]- 9677 Jan, 2012 [facility] [place] [facility] [address] [id number] [place] [address]- 9249 Jan, [facility] [place] [facility] [address] [id number] [place] [address] Jan, [facility] [place] [facility] [address] [id number] [place] [address] Jan, [facility] [address] [id number] [place] [address] 02 Jan, 2013 [facility] [place] [facility] [address] [id number] [place] [address] 30 Sep, 2012 [facility] [place] [facility] [address] [id number] [place] [address] 25 Sep, 2012 [facility] [place] [facility] [address] [id number] [place] [address] 18 Sep, 2012 [facility] [place] [facility] [address] [id number] [place] [address] 17 Sep, 2012 [facility] [place] [facility] [address] [id number] [place] [address] 17 Sep, 2012 [facility] [place] [facility] [address] [id number] [place] [address] 16 Sep, 2012 [facility] [place] [facility] [address] [id number] [place] [address] 13 Dec, 2012 [facility] [place] [facility] [address] [id number] [place] [address] 11 Dec, 2012 [facility] [place] [facility] [address] [id number] [place] [address] 05 Dec, 2012 [facility] [place] [facility] [address] [id number] [place] [address] 04 Dec, 2012 [facility] [place] [facility] [address] [id number] [place] [address] 30 Nov, 2012 [facility] [place] [facility] [address] [id number] [place] [address] Nov, [facility] [place] [facility] [address] [id number] [place] [address] Nov, [facility] [place] [facility] [address] [id number] [place] [address] Nov, [facility] [place] [facility] [address] [id number] [place] [address] Nov, [facility] [place] [facility] [address] [id number] [place] [address] Nov, [facility] [place] [facility] [address] [id number] [place] [address] Nov, [facility] [place] [facility] [address] [id number] [place] [address] Oct, [facility] [place] [facility] [address] [id number] [place] [address] Oct, [facility] [place] [facility] [address] [id number] [place] [address] Oct, [facility] [place] [facility] [address] [id number] [place] [address] Oct, [facility] [place] [facility] [address] [id number] [place] [address] 15 Oct, 2012 [facility] [place] [facility] [address] [id number] [place] [address] Oct, [facility] [address] [id number] [place] [address] 28 Sep, 2012 [facility] [place] [facility] [address] [id number] [place] [address] Sep, [facility] [address] [id number] [place] [address] Sep, [facility] [place] [facility] [address] [id number] [place] [address] 14 Sep, 2012 [facility] [address] [id number] [place] [address] 13 Sep, 2012 [facility] [address] [id number] [place] [address] Sep, [facility] [address] [id number] [place] [address] Sep, [facility] [address] [id number] [place] [address] Sep, [facility] [address] [id number] [place] [address] 9568 Sep, [facility] [address] [id number] [place] [address] August, [facility] [address] [id number] [place] [address] August, [facility] [place] [facility] [address] [id number] [place] [address] August, [facility] [place] [facility] [address] [id number] [place] [address] August, [facility] [place] [facility] [address] [id number] [place] [address] August, [facility] [place] [facility] [address] [id number] [place] [address] August, [facility] [place] [facility] [address] [id number] [place] [address] August, [facility] [address] [id number] [place] [address] August, [facility] [address] [id number] [place] [address] Jul, [facility] [address] [id number] [place] [address] Jul, [facility] [address] [place] [id number] Jul [facility] [address] [id number] [place] [address] Jun, [facility] [address] [id number] [place] [address] Jun, [facility] [address] [id number] [place] [address] Jun, [facility] [address] [id number] [place] [address] Jun, [facility] [address] [id number] [place] [address]- [address] Jun, [facility] [address] [facility] [id number] [place] [address]- [address] Jun, [facility] [address] [id number] [place] [address]- [address] May, [facility] [address] [id number] [place] [address]- [address]46 May, [facility] [address] [id number] [place] [address]- [address] May, [facility] [address] [id number] [place] [address]- [address] May, [facility] [address] [id number] [place] [address]- [address] May, [facility] [address] [id number] [place] [address]- [address] Apr, [facility] [place] [facility] [address] [id number] [place] [address]- [address] Apr, [facility] [place] [facility] [address] [id number] [place] [address] Apr, [facility] [place] [facility] [address] [id number] [place] [address] Apr, [facility] [address] [id number] [place] [address]- [address] Apr, [facility] [address] [id number] [place] [address]- 1797 Apr, [facility] [address] [id number] [place] [address]647 Mar, [facility] [place] [facility] [address] [id number] [place] [address]- [address] Mar, [facility] [place] [facility] [address] [id number] [place] [address]- [address] Mar, [facility] [place] [facility] [address] [id number] [place] [address]- 66[address] Mar, [facility] [place] [facility] [address] [id number] [place] [address]- [address] Mar, [facility] [place] [facility] [address] [id number] [address] 18 Mar, 2012 [facility] [place] [facility] [address] [id number] [place] [address]- 3640 18 Mar, 2012 [facility] [place] [facility] [address] [id number] [place] [address]- [address] Mar, [facility] [place] [facility] [address] [id number] [place] [address] 10 Mar, 2012 [facility] [place] [facility] [address] [id number] [place] [address]- [address] 05 Mar, 2012 [facility] [place] [facility] [address] [id number] [place] [address]- 2516 05 Mar, 2012 [facility] [place] [facility] [address] [id number] [place] [address]- [address] Feb, [facility] [place] [facility] [address] [id number] [place] [address]- 14[address] Feb, [facility] [place] [facility] [address] [address] [id number] [place] [address] Feb, [facility] [place] [facility] [address] [id number] [place] [address] Feb, [facility] [place] [facility] [address] [id number] [place] [address] Feb, [facility] [place] [facility] [address] [id number] [place] [address] Feb, [facility] [place] [facility] [address] [id number] [place] [address] Feb, [facility] [place] [facility] [address] [id number] [place] [address] Feb, [facility] [place] [facility] [address] [facility] [id number] [place] [address] Feb, [facility] [place] [facility] [address] [id number] [place] [address] Feb, [facility] [place] [facility] [address] [id number] [address] Feb, [facility] [place] [facility] [address] [id number] [place] [address] Jan, [facility] [place] [facility] [address] [facility] [id number] [place] [address] Jan, [facility] [place] [facility] [address] [facility] [id number] [place] [address] Jan, [facility] [place] [facility] [address] [id number] [place] [address] Jan, [facility] [place] [facility] [address] [id number] [place] [address] Jan, [facility] [place] [facility] [address] [id number] [place] [address] Jan, [facility] [place] [facility] [address] [id number] [place] [address] Jan, [facility] [place] [facility] [address] [id number] [place] [address] 24 Dec, 2011 [facility] [place] [facility] [address] [id number] [place] [address] 17 Dec, 2011 [facility] [place] [facility] [address] [id number] [place] [address] 13 Dec, 2011 [facility] [place] [facility] [address] [id number] [place] [address] 12 Dec, 2011 [facility] [place] [facility] [address] [id number] [place] [address] Nov, [facility] [place] [facility] [address] [id number] [place] [address] 40[address] Nov, [facility] [place] [facility] [address] [id number] [place] [address] 17 Nov, 2011 [facility] [place] [facility] [address] [id number] [place] [address] 15 Nov, 2011 [facility] [place] [facility] [address] [id number] [place] [address] 14 Nov, 2011 [facility] [place] [facility] [address] [id number] [place] [address] 3073 13 Nov, 2011 [facility] [place] [facility] [address] [id number] [place] [address]16 10 Nov, 2011 [facility] [place] [facility] [address] [id number] [place] [address] 49[address] Nov, [facility] [place] [facility] [address] [id number] [place] [address] 58[address] Nov, [facility] [place] [facility] [address] [id number] [place] [address] 28[address] Nov, [facility] [place] [facility] [address] [id number] [place] [address] Nov, [facility] [place] [facility] [address] [id number] [place] [address]64 Nov, [facility] [place] [facility] [address] [id number] [place] [address] Nov, [facility] [place] [facility] [address] [id number] [place] [address] Oct, [facility] [place] [facility] [address] [id number] [place] [address] Oct, [facility] [place] [facility] [address] [id number] [place] [address] 15[address] Oct, [facility] [place] [facility] [address] [id number] [place] [address] Oct, [facility] [place] [facility] [address] [id number] [place] [address] Oct, [facility] [place] [facility] [address] [id number] [place] [address] Oct, [facility] [place] [facility] [address] [id number] [place] [address] Oct, [facility] [place] [facility] [address] [id number] [place] [address] Oct, [facility] [place] [facility] [address] [id number] [place] [address] Oct, [facility] [place] [facility] [address] [id number] [place] [address] Sep, [facility] [place] [facility] [address] [id number] [place] [address] Sep, [facility] [address] [id number] [place] [address] Sep, [facility] [place] [facility] [address] [id number] [place] [address] Sep, [facility] [address] [id number] [place] [address] Sep, [facility] [place] [facility] [address] [id number] [place] [address] Sep, [facility] [address] [id number] [place] [address] Sep, [facility] [address] [id number] [place] [address] Sep, [facility] [address] [id number] [place] [address] August, [facility] [address] [id number] [place] [address] August, [facility] [address] [id number] [place] [address] 44[address] August, [facility] [address] [id number] [place] [address]- [address] August, [facility] [place] [facility] [address] [id number] [place] [address] August, [facility] [address] [id number] [place] [address] 28[address] August, [facility] [place] [facility] [address] [id number] [place] [address]557 August, [facility] [place] [facility] [address] [id number] [place] [address] 24[address] August, [facility] [address] [id number] [place] [address] August, [facility] [address] [facility] [id number] [place] [address] August, [facility] [address] [facility] [id number] [place] [address] August, [facility] [address] [facility] [id number] [place] [address] August, [facility] [address] [facility] [id number] [place] [address] Oct, IMMUNIZATIONS No Known Immunizations SOCIAL HISTORY Never Assessed REASON FOR VISIT phone call PLAN OF CARE VITAL SIGNS MEDICATIONS [...] Hospitalization History suicidal ideations-[place] 12/28 Hospitalization History hypoxia--[facility] 02/13/2016 Hospitalization History shortness of breath at june 2016 Hospitalization History Shortness of breath at august 2016 Hospitalization History SOB, chest pain at 12/2016
--- OUTSIDE RECORDS SUMMARY | 2017-11-24 18:42 | XMS REPORT ---
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 Affective disorder 296.90 [facility] [address] [place] [address] 68304 2546 04 Dec, 2014 [facility] [id number] [place] [address] 15507 2546 04 Dec, 2014 [facility] [address] [place] [address] 40030 2546 04 Dec, 2014 [facility] [address] [place] [address] 79069 2546 Dec, 2014 [facility] [address] [place] [address] 61738 2540 Nov, Affective disorder 296.90 [facility] [address] [place] [address] 96057 2546 Nov, [facility] [address], [place] [address] 2546 Nov, Affective disorder 296.90 [facility] [address] [place] [address] 58225 2546 Nov, Diarrhea 787.91 [facility] [address] [place] [address] 69297 2546 Nov, [facility] [address] [place] [address] 98520 2546 Nov, Diarrhea 787.91 [facility] [address], [place] [address] 2546 Nov, Diarrhea 787.91 and Hyperlipidemia 272.4 [facility] [address], [place] [address]- 5342 Nov, Diarrhea 787.91 [facility] [id number] [place] [address] 09288- 1296 Nov, Affective disorder 296.90 [facility] [id number] [place] [address] 15475- 3739 Nov, Affective disorder 296.90 [facility] [id number] [place] [address] 30271- 4171 Nov, Affective disorder 296.90 [facility] [id number] [place] [address] 83107- 6479 Nov, [facility] [id number] [place] [address] 25068- 9345 Nov, [facility] [id number] [place] [address] 85228- 3741 Nov, [facility] [address] [place] [address] 34234- 8321 Nov, Episodic mood disorder 296.90 [facility] [address] [place] [address] 20403- 6788 Nov, [facility] [address] [place] [address] 93072- 7576 Nov, [facility] [id number] [place] [address] 90594- 1741 Nov, [facility] [address] [place] [address] 96986- 9914 Nov, [facility] [id number] [place] [address] 29750- 7942 Nov, [facility] [address], [place] [address]- 6115 Nov, Lymphedema 457.1 ; Hyperlipidemia 272.4 ; Essential hypertension, benign 401.1 and Numbness of toes 782.0 [facility] [address] [place] [address]- 4664 Nov, Episodic mood disorder 296.90 [facility] [address] [place] [address]- 1936 Oct, 2014 [facility] [address] [place] [address]- 3476 Oct, 2014 [facility] [address], [place] [address]- 2392 Oct, 2014 [facility] [address] [place] [address]- 7924 Oct, 2014 [facility] [address] [place] [address]- 6815 Oct, 2014 [facility] [address], [place] [address]- 9185 Oct, 2014 [facility] [address], [place] [address]- 2322 Oct, [facility] [address], [place] [address]- 4585 Oct, [facility] [address], [place] [address]- 2449 Oct, Episodic mood disorder 296.90 [facility] [address], [place] [address] 2545 Sep, [facility] [address], [place] [address]- 2549 Sep, [facility] [address], [place] [address]- 1805 Sep, [facility] [address], [place] [address]- 2543 Sep, [facility] [address] 3591 Sep, [facility] [id number] [address]- 2778 Sep, Episodic mood disorder 296.90 [facility] [address], [place] [address]- 6121 Sep, Unspecified episodic mood disorder 296.90 [facility] [address], [place] [address]- 0451 Sep, [facility] [id number] [place] [address] 44994- 8371 Sep, [facility] [address] [place] [address] 25054- 2259 Sep, Episodic mood disorder 296.90 [facility] [address], [place] [address]- 6840 Sep, [facility] [id number] [place] [address] 25059- 4506 Sep, [facility] [address], [place] [address]- 7708 Sep, [facility] [id number] [place] [address] 99141- 7587 Sep, Hematemesis 578.0 and Vomiting 787.03 [facility] [address], [place] [address]- 4534 Sep, Episodic mood disorder 296.90 [facility] [address], [place] [address]- 0261 08 Sep, 2014 [facility] [address], [place] [address]- 8723 Sep, [facility] [address], [place] [address]- 6725 05 Sep, 2014 Diabetes mellitus without mention of complication, type II or unspecified type, not stated as uncontrolled 250.00 and Other chronic pain 338.29 [facility] [id number] [address]- 8307 Sep, Episodic mood disorder 296.90 [facility] [address]- 4933 Sep, [facility] [address]- 3914 Sep, Episodic mood disorder 296.90 [facility] [address]- 5438 Sep, [facility] [address], [place] [address]- 0478 August, [facility] [address], [place] [address]- 9716 August, [facility] [id number], [place] [address]- 8373 August, Episodic mood disorder 296.90 [facility] [address], [place] [address]- 4580 August, [facility] [address], [place] [address]- 8618 August, Unspecified episodic mood disorder 296.90 [facility] [address], [place] [address]- 6177 August, Vomiting 787.03 [facility] [address], [place] [address]- 8933 August, [facility] [address], [place] [address]- 5716 August, [facility] [id number]- 1646 August, [facility] [address]- 6717 August, [facility] [id number] 3735 August, [facility] [place] [facility] [address] [id number] [place] [address]- 3306 28 Jul, 2014 [facility] [place] [facility] [address] [id number] [place] [address]- 1716 14 Jul, 2014 [facility] [place] [facility] [address] [id number] [place] [address]- 9786 13 Jul, 2014 [facility] [place] [facility] [address] [id number] [place] [address]- 5366 30 Jun, 2014 [facility] [place] [facility] [address] [id number] [place] [address]- 1096 30 Jun, 2014 [facility] [place] [facility] [address] [id number] [place] [address]- 2190 30 Jun, 2014 [facility] [place] [facility] [address] [id number] [place] [address]- 4643 30 Jun, 2014 [facility] [place] [facility] [address] [id number] [place] [address]- 6660 30 Jun, 2014 [facility] [place] [facility] [address] [id number] [place] [address]- 0254 30 Jun, 2014 [facility] [place] [facility] [address] [id number] [place] [address]- 0776 30 Jun, 2014 [facility] [place] [facility] [address] [id number] [place] [address]- 1837 30 Jun, 2014 [facility] [place] [facility] [address] [id number] [place] [address]- 7761 27 Jun, 2014 [facility] [place] [facility] [address] [id number] [place] [address]- 5157 Jun, [facility] [place] [facility] [address] [id number] [place] [address]- 2996 Jun, [facility] [place] [facility] [address] [id number] [place] [address]- 2306 Jun, [facility] [place] [facility] [address] [id number] [place] [address]- 6618 Jun, [facility] [place] [facility] [address] [id number] [place] [address]- 1284 Jun, [facility] [place] [facility] [address] [id number] [place] [address]- 5359 24 Jun, 2014 [facility] [place] [facility] [address] [id number] [place] [address]- 3264 Jun, [facility] [place] [facility] [address] [id number] [place] [address]- 9929 Jun, [facility] [place] [facility] [address] [id number] [place] [address]- 0344 Jun, [facility] [place] [facility] [address] [id number] [place] [address]- 0553 Jun, [facility] [place] [facility] [address] [id number] [place] [address]- 7462 Jun, [facility] [place] [facility] [address] [id number] [place] [address]- 8344 Jun, [facility] [place] [facility] [address] [id number] [place] [address]- 1297 Jun, [facility] [place] [facility] [address] [id number] [place] [address]- 4418 Jun, [facility] [place] [facility] [address] [id number] [place] [address]- 5924 Jun, [facility] [place] [facility] [address] [id number] [address]- 0271 20 Jun, 2014 [facility] [place] [facility] [address] [id number] [place] [address]- 6955 19 Jun, 2014 [facility] [place] [facility] [address] [id number] [place] [address]- 6904 19 Jun, 2014 [facility] [place] [facility] [address] [id number] [place] [address]- 2915 18 Jun, 2014 [facility] [place] [facility] [address] [id number] [place] [address]- 6027 18 Jun, 2014 [facility] [place] [facility] [address] [id number] [place] [address]- 7413 17 Jun, 2014 [facility] [place] [facility] [address] [id number] [place] [address]- 4055 17 Jun, 2014 [facility] [place] [facility] [address] [id number] [place] [address]- 2714 16 Jun, 2014 [facility] [place] [facility] [address] [id number] [place] [address]- 7917 16 Jun, 2014 [facility] [place] [facility] [address] [id number] [place] [address]- 4944 16 Jun, 2014 [facility] [place] [facility] [address] [id number] [place] [address]- 5956 16 Jun, 2014 [facility] [place] [facility] [address] [id number] [place] [address]- 8618 16 Jun, 2014 [facility] [place] [facility] [address] [id number] [place] [address]- 0705 16 Jun, 2014 [facility] [place] [facility] [address] [id number] [place] [address]- 8272 13 Jun, 2014 [facility] [place] [facility] [address] [id number] [place] [address]- 8774 13 Jun, 2014 [facility] [place] [facility] [address] [id number] [place] [address] 12 Jun, 2014 [facility] [place] [facility] [address] [id number] [place] [address] 12 Jun, 2014 [facility] [place] [facility] [address] [id number] [place] [address] 09 Jun, 2014 [facility] [place] [facility] [address] [id number] [place] [address] 09 Jun, 2014 [facility] [place] [facility] [address] [id number] [place] [address] Jun, 2014 [facility] [place] [facility] [address] [id number] [place] [address] Jun, [facility] [place] [facility] [address] [id number] [place] [address] Jun, [facility] [place] [facility] [address] [id number] [place] [address] Jun, [facility] [place] [facility] [address] [id number] [place] [address] Jun, 2014 [facility] [place] [facility] [address] [id number] [place] [address] Jun, [facility] [place] [facility] [address] [id number] [place] [address] Jun, [facility] [place] [facility] [address] [id number] [place] [address] Jun, [facility] [place] [facility] [address] [id number] [place] [address] Jun, [facility] [place] [facility] [address] [id number] [place] [address] Jun, [facility] [place] [facility] [address] [id number] [place] [address] Jun, [facility] [place] [facility] [address] [id number] [place] [address] Jun, [facility] [place] [facility] [address] [id number], [place] [address] Jun, [facility] [place] [facility] [address] [id number] [place] [address] Jun, [facility] [place] [facility] [address] [id number] [place] [address] May, [facility] [place] [facility] [address] [id number] [place] [address] May, [facility] [place] [facility] [address] [id number], [place] [address] May, 2014 [facility] [place] [facility] [address] [id number] [place] [address] May, 2014 [facility] [place] [facility] [address] [facility] [id number] [place] [address] 24 May, 2014 [facility] [place] [facility] [address] [facility] [id number] [place] [address] May, 2014 [facility] [place] [facility] [address] [facility] [id number] [place] [address] 20 May, 2014 [facility] [place] [facility] [address] [facility] [id number] [place] [address] May, 2014 [facility] [place] [facility] [address] [id number] [place] [address] 20 May, 2014 [facility] [place] [facility] [address] [id number] [place] [address] 20 May, 2014 [facility] [place] [facility] [address] [facility] [id number] [place] [address]- [address] 18 May, 2014 [facility] [place] [facility] [address] [id number] [place] [address] 18 May, 2014 [facility] [place] [facility] [address] [id number] [place] [address] 13 May, 2014 [facility] [place] [facility] [address] [facility] [id number] [place] [address] 13 May, 2014 [facility] [place] [facility] [address] [facility] [id number] [place] [address] 2549 11 May, 2014 [facility] [place] [facility] [address] [facility] [id number] [place] [address] 5170 11 May, 2014 [facility] [place] [facility] [address] [facility] [id number] [place] [address] 2922 11 May, 2014 [facility] [place] [facility] [address] [facility] [id number], [place] [address] May, 2014 [facility] [place] [facility] [address] [id number] [place] [address] 7226 May, 2014 [facility] [place] [facility] [address] [id number] [place] [address] May, 2014 [facility] [place] [facility] [address] [facility] [id number] [place] [address]- 4055 May, 2014 [facility] [place] [facility] [address] [id number] [place] [address]- 5714 May, 2014 [facility] [place] [facility] [address] [id number] [place] [address]- 2838 May, 2014 [facility] [place] [facility] [address] [id number] [place] [address]- 8812 May, 2014 [facility] [place] [facility] [address] [facility] [id number] [place] [address]- 7973 May, 2014 [facility] [place] [facility] [address] [facility] [id number] [place] [address]- 2475 May, 2014 [facility] [place] [facility] [address] [facility] [id number] [place] [address]- 9412 May, 2014 [facility] [place] [facility] [address] [facility] [id number] [place] [address] Apr, [facility] [place] [facility] [address] [facility] [id number] [place] [address] 4152 Apr, [facility] [place] [facility] [address] [facility] [id number], [place] [address]- [address] Apr, [facility] [place] [facility] [address] [id number] [place] [address]- 1019 Apr, [facility] [place] [facility] [address] [facility] [id number], [place] [address] 33[address] Apr, [facility] [place] [facility] [address] [facility] [id number], [place] [address]- 280[address] Apr, [facility] [place] [facility] [address] [id number] [place] [address]- 9439 Apr, [facility] [place] [facility] [address] [id number] [place] [address]- 6386 Apr, [facility] [place] [facility] [address] [id number] [place] [address]- 0533 Apr, [facility] [place] [facility] [address] [id number] [place] [address]- 1301 Apr, [facility] [place] [facility] [address] [id number] [place] [address]- 1479 Apr, [facility] [place] [facility] [address] [id number] [place] [address]- 6077 Apr, [facility] [place] [facility] [address] [id number] [place] [address]- 1472 Apr, [facility] [place] [facility] [address] [id number] [place] [address]- 4868 Apr, [facility] [place] [facility] [address] [id number] [place] [address] 1890 Apr, [facility] [place] [facility] [address] [id number] [place] [address]- 2243 Apr, [facility] [place] [facility] [address] [id number] [place] [address]- 0733 Apr, [facility] [place] [facility] [address] [id number] [place] [address]- 6753 Apr, [facility] [place] [facility] [address] [id number] [place] [address]- 5260 Apr, [facility] [place] [facility] [address] [id number] [place] [address]- 4257 Apr, [facility] [place] [facility] [address] [id number] [place] [address]- 3142 Mar, [facility] [place] [facility] [address] [id number] [place] [address]- 6717 Mar, [facility] [place] [facility] [address] [id number] [place] [address]- 7144 Mar, [facility] [place] [facility] [address] [id number] [place] [address] Mar, [facility] [place] [facility] [address] [id number] [place] [address]- 5956 Mar, [facility] [place] [facility] [address] [id number] [place] [address]- 6895 Mar, [facility] [place] [facility] [address] [id number] [place] [address]- 9170 Mar, [facility] [place] [facility] [address] [id number] [place] [address]- 0009 Mar, [facility] [place] [facility] [address] [id number] [place] [address]- 1206 15 Mar, 2014 [facility] [place] [facility] [address] [id number] [place] [address]- 3215 15 Mar, 2014 [facility] [place] [facility] [address] [id number] [place] [address]- 7803 15 Mar, 2014 [facility] [place] [facility] [address] [id number] [place] [address]- 4297 15 Mar, 2014 [facility] [place] [facility] [address] [id number] [place] [address]- 1690 Mar, [facility] [place] [facility] [address] [id number] [place] [address]- 8855 Mar, [facility] [place] [facility] [address] [id number] [place] [address] [address] Mar, [facility] [place] [facility] [address] [id number] [place] [address]- 6159 Mar, [facility] [place] [facility] [address] [id number] [place] [address]- 8991 Feb, [facility] [place] [facility] [address] [id number] [place] [address]- 9253 28 Feb, 2014 [facility] [place] [facility] [address] [id number] [place] [address]- 4333 Feb, [facility] [place] [facility] [address] [id number] [place] [address]- 4712 Feb, [facility] [place] [facility] [address] [id number] [place] [address]- 4460 Feb, [facility] [place] [facility] [address] [id number] [place] [address]- 9258 Feb, [facility] [place] [facility] [address] [id number] [place] [address]- 3092 19 Feb, 2014 [facility] [place] [facility] [address] [id number] [place] [address]- 0157 18 Feb, 2014 [facility] [place] [facility] [address] [id number] [place] [address]- 8962 18 Feb, 2014 [facility] [place] [facility] [address] [id number] [place] [address]- 6041 17 Feb, 2014 [facility] [place] [facility] [address] [id number] [place] [address]- 6379 17 Feb, 2014 [facility] [place] [facility] [address] [id number] [place] [address]- 1068 17 Feb, 2014 [facility] [place] [facility] [address] [id number] [place] [address]- 0639 17 Feb, 2014 [facility] [place] [facility] [address] [id number] [place] [address]- 9894 14 Feb, 2014 [facility] [place] [facility] [address] [id number] [place] [address]- 4969 14 Feb, 2014 [facility] [place] [facility] [address] [id number] [place] [address]- 3390 14 Feb, 2014 [facility] [place] [facility] [address] [id number] [place] [address]- 7710 Feb, [facility] [place] [facility] [address] [id number] [place] [address]- 4421 Feb, [facility] [place] [facility] [address] [id number] [place] [address]- 6536 Feb, [facility] [place] [facility] [address] [id number] [place] [address]- 0726 Feb, [facility] [place] [facility] [address] [id number] [place] [address]- 5606 Feb, [facility] [place] [facility] [address] [id number] [place] [address]- 5142 Jan, [facility] [place] [facility] [address] [id number] [place] [address]- 4032 Jan, [facility] [place] [facility] [address] [id number] [place] [address]- 5547 Jan, [facility] [place] [facility] [address] [id number] [place] [address]- 2999 Jan, [facility] [place] [facility] [address] [id number] [place] [address]- 3955 Jan, [facility] [place] [facility] [address] [id number], [place] [address]- 9005 Jan, [facility] [place] [facility] [address] [id number], [place] [address]- 7686 Jan, [facility] [place] [facility] [address] [id number], [place] [address]- 8353 Jan, [facility] [place] [facility] [address] [id number] [place] [address]- 3453 Jan, [facility] [place] [facility] [address] [id number] [place] [address]- 0171 Jan, [facility] [place] [facility] [address] [id number], [place] [address]- 1901 Jan, [facility] [place] [facility] [address] [id number], [place] [address]- 7855 17 Jan, 2013 [facility] [place] [facility] [address] [id number] [place] [address]- 0021 17 Jan, 2013 [facility] [place] [facility] [address] [id number] [place] [address]- 3989 17 Jan, 2013 [facility] [place] [facility] [address] [id number] [place] [address]- 6912 15 Jan, 2013 [facility] [place] [facility] [address] [id number] [place] [address]- 7529 15 Jan, 2013 [facility] [place] [facility] [address] [id number] [place] [address]- 7175 14 Jan, 2014 [facility] [place] [facility] [address] [id number] [place] [address]- 4729 14 Jan, 2013 [facility] [place] [facility] [address] [id number], [place] [address]- 7414 13 Jan, 2013 [facility] [place] [facility] [address] [id number] [place] [address]- 7925 13 Jan, 2013 [facility] [place] [facility] [address] [id number] [place] [address]- 1372 13 Jan, 2014 [facility] [place] [facility] [address] [id number] [place] [address]- 0643 13 Jan, 2014 [facility] [place] [facility] [address] [id number], [place] [address]- 8419 10 Jan, 2013 [facility] [place] [facility] [address] [id number], [place] [address]- 6869 02 Jan, 2014 [facility] [place] [facility] [address] [id number] [place] [address]- 2884 Jan, [facility] [place] [facility] [address] [id number], [place] [address]- 7416 25 Dec, 2013 [facility] [place] [facility] [address] [id number], [place] [address]- 7656 25 Dec, 2013 [facility] [place] [facility] [address] [id number] [place] [address]- 5770 23 Sep, 2013 [facility] [place] [facility] [address] [id number] [place] [address] 2546 23 Sep, 2013 [facility] [place] [facility] [address] [id number] [place] [address] 2546 19 Sep, 2013 [facility] [place] [facility] [address] [id number] [place] [address] 2546 19 Sep, 2013 [facility] [place] [facility] [address] [id number] [place] [address] 2547 17 Sep, 2013 [facility] [place] [facility] [address] [id number] [place] [address] 2544 17 Sep, 2013 [facility] [place] [facility] [address] [id number] [place] [address]- 4105 09 Sep, 2013 [facility] [place] [facility] [address] [id number] [place] [address]- 1765 09 Sep, 2013 [facility] [place] [facility] [address] [id number] [place] [address] 2542 08 Sep, 2013 [facility] [place] [facility] [address] [id number] [place] [address] 254 08 Sep, 2013 [facility] [place] [facility] [address] [id number] [place] [address] 2541 04 Sep, 2013 [facility] [place] [facility] [address] [id number] [place] [address] 2544 04 Sep, 2013 [facility] [place] [facility] [address] [id number] [place] [address] 254 02 Sep, 2013 [facility] [place] [facility] [address] [id number] [place] [address] 2546 02 Sep, 2013 [facility] [place] [facility] [address] [id number] [place] [address] 2544 02 Sep, 2013 [facility] [place] [facility] [address] [id number] [place] [address]- 0858 Dec, [facility] [place] [facility] [address] [id number] [place] [address]- 5016 Nov, [facility] [place] [facility] [address] [id number] [place] [address]- 6439 Nov, [facility] [place] [facility] [address] [id number] [place] [address]- 0273 Nov, [facility] [place] [facility] [address] [id number] [place] [address]- 1712 Nov, [facility] [place] [facility] [address] [id number] [place] [address]- 9675 Nov, [facility] [place] [facility] [address] [id number] [place] [address]- 1576 Nov, [facility] [place] [facility] [address] [id number] [place] [address]- 5663 Nov, [facility] [place] [facility] [address] [id number] [place] [address]- 9918 Nov, [facility] [place] [facility] [address] [id number] [place] [address]- 4785 Nov, [facility] [place] [facility] [address] [id number] [place] [address]- 9082 Nov, [facility] [place] [facility] [address] [id number] [place] [address]- 5021 Nov, [facility] [place] [facility] [address] [id number], [place] [address]- 7603 Nov, [facility] [place] [facility] [address] [id number] [place] [address]- 6627 Oct, [facility] [place] [facility] [address] [id number] [place] [address]- 8908 Oct, [facility] [place] [facility] [address] [id number] [place] [address]- 8508 Oct, [facility] [place] [facility] [address] [id number] [place] [address]- 1877 Oct, [facility] [place] [facility] [address] [id number] [place] [address]- 7065 Oct, [facility] [place] [facility] [address] [id number] [place] [address]- 3354 Oct, [facility] [place] [facility] [address] [id number] [place] [address]- 7518 Oct, [facility] [place] [facility] [address] [id number] [place] [address]- 0209 Oct, [facility] [place] [facility] [address] [id number] [place] [address]- 7058 Oct, [facility] [place] [facility] [address] [id number] [place] [address]- 7959 Oct, [facility] [place] [facility] [address] [id number] [place] [address]- 6458 Oct, [facility] [place] [facility] [address] [id number] [place] [address]- 6162 Oct, [facility] [place] [facility] [address] [id number] [place] [address]- 0240 Oct, [facility] [place] [facility] [address] [id number] [place] [address]- 2938 Oct, [facility] [place] [facility] [address] [id number] [place] [address]- 6519 Oct, [facility] [place] [facility] [address] [id number] [place] [address]- 3672 Oct, [facility] [place] [facility] [address] [id number] [place] [address]- 3034 Oct, [facility] [place] [facility] [address] [id number] [place] [address]- 4943 Sep, [facility] [place] [facility] [address] [id number] [place] [address]- 6796 Sep, [facility] [place] [facility] [address] [id number] [place] [address]- 1553 Sep, [facility] [place] [facility] [address] [id number] [place] [address]- 3634 Sep, [facility] [place] [facility] [address] [id number] [place] [address]- 7125 Sep, [facility] [place] [facility] [address] [id number] [place] [address]- 8516 Sep, [facility] [place] [facility] [address] [id number] [place] [address]- 3405 Sep, [facility] [place] [facility] [address] [id number] [place] [address]- 5885 Sep, [facility] [place] [facility] [address] [id number] [place] [address]- 6797 Sep, [facility] [place] [facility] [address] [id number] [place] [address]- 3309 Sep, [facility] [place] [facility] [address] [id number] [place] [address]- 0433 Sep, [facility] [place] [facility] [address] [id number] [place] [address]- 1132 Sep, [facility] [place] [facility] [address] [id number] [place] [address]- 7630 Sep, [facility] [place] [facility] [address] [id number] [place] [address]- 8012 Sep, [facility] [place] [facility] [address] [id number] [place] [address]- 9901 Sep, [facility] [place] [facility] [address] [id number] [place] [address]- 9709 Sep, [facility] [place] [facility] [address] [id number] [place] [address]- 0253 07 Sep, 2013 [facility] [place] [facility] [address] [id number] [place] [address]- 2400 Sep, [facility] [place] [facility] [address] [id number] [place] [address]- 0868 Sep, [facility] [place] [facility] [address] [id number] [place] [address]- 2207 Sep, [facility] [place] [facility] [address] [id number] [place] [address]- 3840 Sep, [facility] [place] [facility] [address] [id number] [place] [address]- 2860 Sep, [facility] [place] [facility] [address] [id number] [place] [address]- 5654 August, [facility] [place] [facility] [address] [id number] [place] [address]- 1465 August, [facility] [place] [facility] [address] [id number] [place] [address]- 3486 August, [facility] [place] [facility] [address] [id number] [place] [address]- 1259 August, [facility] [place] [facility] [address] [id number] [place] [address]- 1700 August, [facility] [place] [facility] [address] [id number] [place] [address]- 8726 August, [facility] [place] [facility] [address] [id number] [place] [address]- 9560 August, [facility] [place] [facility] [address] [id number] [place] [address]- 5733 August, [facility] [place] [facility] [address] [id number] [place] [address]- 7989 August, [facility] [place] [facility] [address] [id number] [place] [address]- 4003 August, [facility] [place] [facility] [address] [id number] [place] [address]- 7227 August, [facility] [place] [facility] [address] [id number] [place] [address]- 0947 28 Jul, 2013 [facility] [address] [id number] [place] [address]- 2689 Jul, [facility] [place] [facility] [address] [id number] [place] [address]- 2141 Jul, [facility] [address] [id number] [place] [address]- 2331 Jul, [facility] [address] [id number] [place] [address]- 3097 Jul, [facility] [address] [id number] [place] [address]- 6281 Jul, [facility] [address] [id number] [place] [address]- 2293 Jul, [facility] [address] [id number] [place] [address]- 8378 Jul, [facility] [address] [id number] [place] [address]- 4963 18 Jul, 2013 [facility] [address] [id number] [place] [address]- 4431 18 Jul, 2013 [facility] [address] [id number] [place] [address] 16 Jul, 2013 [facility] [place] [facility] [address] [id number] [place] [address] 14 Jul, 2013 [facility] [address] [id number] [place] [address] 14 Jul, 2013 [facility] [place] [facility] [address] [id number] [place] [address] 11 Jul, 2013 [facility] [place] [facility] [address] [id number] [place] [address] 95[address] 11 Jul, 2013 [facility] [place] [facility] [address] [id number] [place] [address] Jul, [facility] [place] [facility] [address] [id number] [place] [address] Jul, [facility] [place] [facility] [address] [id number] [place] [address] Jul, [facility] [place] [facility] [address] [id number] [place] [address] 225[address] Jul, [facility] [place] [facility] [address] [id number] [place] [address] Jul, [facility] [place] [facility] [address] [id number] [place] [address] Jul, [facility] [place] [facility] [address] [id number] [place] [address] Jul, [facility] [place] [facility] [address] [id number] [place] [address] Jul, [facility] [place] [facility] [address] [id number] [place] [address] Jun, [facility] [place] [facility] [address] [id number] [place] [address] Jun, [facility] [place] [facility] [address] [id number] [place] [address] 9531 Jun, [facility] [place] [facility] [address] [id number] [place] [address]- [address] Jun, [facility] [place] [facility] [address] [id number] [place] [address]- [address] Jun, [facility] [place] [facility] [address] [id number] [place] [address] 39[address] Jun, [facility] [place] [facility] [address] [id number] [place] [address]- [address]69 Jun, [facility] [place] [facility] [address] [id number] [place] [address]- 7184 Jun, [facility] [place] [facility] [address] [id number] [place] [address]- 4869 18 Jun, 2013 [facility] [place] [facility] [address] [id number] [place] [address]- 6[address] Jun, [facility] [place] [facility] [address] [id number] [place] [address] 5166 Jun, [facility] [place] [facility] [address] [id number] [place] [address] Jun, [facility] [place] [facility] [address] [id number] [place] [address] May, [facility] [place] [facility] [address] [id number] [place] [address] 6679 May, [facility] [place] [facility] [address] [id number] [place] [address] Apr, [facility] [place] [facility] [address] [id number] [place] [address] Apr, [facility] [place] [facility] [address] [id number] [place] [address]16 Apr, [facility] [place] [facility] [address] [id number] [place] [address] 6[address] Apr, [facility] [place] [facility] [address] [id number] [place] [address] 4867 Apr, [facility] [place] [facility] [address] [id number] [place] [address] 25[address] Apr, [facility] [place] [facility] [address] [id number] [place] [address] 1851 Apr, [facility] [place] [facility] [address] [id number] [place] [address] 6658 Apr, [facility] [place] [facility] [address] [id number] [place] [address] Apr, [facility] [place] [facility] [address] [id number] [place] [address]- 4157 Apr, [facility] [place] [facility] [address] [id number] [place] [address]- 277[address] Apr, [facility] [place] [facility] [address] [id number] [place] [address]- 9484 Mar, [facility] [place] [facility] [address] [id number] [place] [address] Mar, [facility] [place] [facility] [address] [id number] [place] [address]- 2034 Mar, [facility] [place] [facility] [address] [id number] [place] [address]- 5[address] Mar, [facility] [place] [facility] [address] [id number] [place] [address]- 2033 Feb, [facility] [place] [facility] [address] [id number] [place] [address]- 2098 Feb, [facility] [place] [facility] [address] [id number] [place] [address]- 76[address] Feb, [facility] [place] [facility] [address] [id number] [place] [address]- 4[address] Feb, [facility] [place] [facility] [address] [id number] [place] [address]- 9875 Feb, [facility] [place] [facility] [address] [id number] [place] [address] 0199 Feb, [facility] [place] [facility] [address] [id number] [place] [address]- 0763 Feb, [facility] [place] [facility] [address] [id number] [place] [address]- 2456 Feb, [facility] [place] [facility] [address] [id number] [place] [address]- 6[address] Feb, [facility] [place] [facility] [address] [id number] [place] [address] Feb, [facility] [place] [facility] [address] [id number] [place] [address]- 0832 Feb, [facility] [place] [facility] [address] [id number] [place] [address]- 64[address] Jan, [facility] [place] [facility] [address] [id number] [place] [address]- 2631 Jan, [facility] [place] [facility] [address] [id number] [place] [address]- 2049 Jan, [facility] [place] [facility] [address] [id number] [place] [address] 8463 Jan, [facility] [place] [facility] [address] [id number] [place] [address]- 5184 Jan, [facility] [place] [facility] [address] [id number] [place] [address]- 0470 Jan, [facility] [place] [facility] [address] [id number] [place] [address]- 3244 Jan, [facility] [place] [facility] [address] [id number], [place] [address] 02 Jan, 2013 [facility] [place] [facility] [address] [id number], [place] [address] 30 Sep, 2012 [facility] [place] [facility] [address] [id number] [place] [address]- 3511 25 Sep, 2012 [facility] [place] [facility] [address] [id number], [place] [address]- 49[address] 18 Sep, 2012 [facility] [place] [facility] [address] [id number], [place] [address]- [address] 17 Sep, 2012 [facility] [place] [facility] [address] [id number] [place] [address] 2542 17 Sep, 2012 [facility] [place] [facility] [address] [id number], [place] [address]- 99[address] 16 Sep, 2012 [facility] [place] [facility] [address] [id number], [place] [address] 13 Sep, 2012 [facility] [place] [facility] [address] [id number] [place] [address] 11 Dec, 2012 [facility] [address] [id number] [place] [address] 05 Dec, 2012 [facility] [address] [id number] [place] [address] 04 Dec, 2012 [facility] [address] [id number] [place] [address] 2744 30 Nov, 2012 [facility] [address] [id number] [place] [address] 84[address] Nov, [facility] [address] [id number] [place] [address] 69[address] Nov, [facility] [address] [id number] [place] [address] 9060 Nov, [facility] [address] [id number] [place] [address] 6[address] Nov, [facility] [address] [id number] [place] [address] 7851 Nov, [facility] [address] [id number] [place] [address] 7617 Nov, [facility] [address] [id number] [place] [address] 8985 Oct, [facility] [place] [facility] [address] [id number] [place] [address] 9749 Oct, [facility] [address] [id number] [place] [address] 4068 Oct, [facility] [place] [facility] [address] [id number] [place] [address]- 0097 17 Oct, 2012 [facility] [place] [facility] [address] [id number] [place] [address] 4[address] 15 Oct, 2012 [facility] [place] [facility] [address] [id number] [place] [address]- 9050 Oct, [facility] [place] [facility] [address] [id number] [place] [address]- 7796 Sep, [facility] [place] [facility] [address] [id number] [place] [address]- 3665 Sep, [facility] [place] [facility] [address] [id number] [place] [address]- 2260 Sep, [facility] [place] [facility] [address] [id number] [place] [address]- 8455 Sep, [facility] [address] [id number] [place] [address]- 7427 Sep, [facility] [place] [facility] [address] [id number] [place] [address]- 3617 Sep, [facility] [address] [id number] [place] [address] 3710 Sep, [facility] [place] [facility] [address] [id number] [place] [address]- 4635 Sep, [facility] [place] [facility] [address] [id number] [place] [address]- 1514 Sep, [facility] [place] [facility] [address] [id number] [place] [address] 0[address] August, [facility] [place] [facility] [address] [id number] [place] [address] 2210 August, [facility] [place] [facility] [address] [id number] [place] [address]- 9468 August, [facility] [place] [facility] [address] [id number] [place] [address]- 7678 August, [facility] [place] [facility] [address] [id number] [place] [address]- 5914 August, [facility] [place] [facility] [address] [id number] [place] [address] 7[address] August, [facility] [place] [facility] [address] [id number], [place] [address] August, [facility] [address] [id number] [place] [address] 6360 August, [facility] [address] [id number] [place] [address] 3061 Jul, [facility] [address] [id number] [place] [address] Jul, [address] [id number] Jul [facility] [address] [id number] [place] [address] 1245 Jun, [facility] [address] [id number] [place] [address]- 9594 Jun, [facility] [address] [id number] [place] [address]- 7315 Jun, [facility] [address] [id number], [place] [address] Jun, [facility] [address] [id number] [place] [address]- 7630 Jun, [facility] [address] [id number], [place] [address] 6[address] Jun, [facility] [address] [id number], [place] [address] May, [facility] [address] [id number], [place] [address] 1993 May, [facility] [address] [id number] [place] [address] 3086 May, [facility] [address] [id number] [place] [address] 8186 May, [facility] [address] [id number], [place] [address] 2546 May, [facility] [address] [id number] [place] [address]- 4429 30 Apr, 2012 [facility] [address] [id number] [place] [address]- 9762 15 Apr, 2012 [facility] [address] [id number] [place] [address]- 1766 11 Apr, 2012 [facility] [address] [id number] [place] [address]- 2280 Apr, [facility] [address] [id number] [place] [address]- 6757 Apr, [facility] [address] [id number] [place] [address]- 9304 Apr, [facility] [address] [id number] [place] [address] 9237 26 Mar, 2012 [facility] [address] [id number] [place] [address]- 9464 20 Mar, 2012 [facility] [address] [id number] [place] [address]- 5587 20 Mar, 2012 [facility] [address] [id number] [place] [address]- 0287 19 Mar, 2012 [facility] [address] [facility] [id number] [place] [address] 1978 19 Mar, 2012 [facility] [address] [id number] [place] [address] 2540 18 Mar, 2012 [facility] [address] [id number] [place] [address] 2545 18 Mar, 2012 [facility] [address] [id number] [place] [address]- 4698 10 Mar, 2012 [facility] [address] [id number] [place] [address]- 2549 10 Mar, 2012 [facility] [address] [id number] [place] [address]- 3706 Mar, [facility] [place] [facility] [address] [id number] [place] [address]- 0868 Mar, [facility] [place] [facility] [address] [id number] [place] [address]- 5046 Feb, [facility] [place] [facility] [address] [id number] [place] [address]- 5874 Feb, [facility] [place] [facility] [address] [id number] [place] [address]- 4632 Feb, [facility] [place] [facility] [address] [id number] [place] [address]- 3883 Feb, [facility] [place] [facility] [address] [id number] [place] [address]- 0120 Feb, [facility] [place] [facility] [address] [facility] [id number] [place] [address]- 4281 Feb, [facility] [place] [facility] [address] [id number], [place] [address]- 2047 Feb, [facility] [place] [facility] [address] [facility] [id number] [place] [address]- 8986 Feb, [facility] [place] [facility] [address] [facility] [id number][place] [address]- 7621 Feb, [facility] [place] [facility] [address] [facility] [id number], [place] [address]- 1460 Feb, [facility] [place] [facility] [address] [id number], [place] [address]- 5347 Feb, [facility] [place] [facility] [address] [id number], [place] [address]- 9020 Jan, [facility] [place] [facility] [address] [id number], [place] [address]- 5575 Jan, [facility] [place] [facility] [address] [facility] [id number], [place] [address]- 0239 Jan, [facility] [place] [facility] [address] [id number], [place] [address]- 1710 Jan, [facility] [place] [facility] [address] [id number] [place] [address]- 4648 Jan, [facility] [place] [facility] [address] [id number] [place] [address]- 4054 Jan, [facility] [place] [facility] [address] [id number] [place] [address]- 1394 Jan, [facility] [place] [facility] [address] [id number] [place] [address]- 8314 24 Dec, 2011 [facility] [place] [facility] [address] [id number] [place] [address]- 3038 17 Dec, 2011 [facility] [place] [facility] [address] [id number] [place] [address]- 3277 13 Dec, 2011 [facility] [place] [facility] [address] [id number] [place] [address]- 2802 12 Dec, 2011 [facility] [place] [facility] [address] [id number] [place] [address]- 9363 Nov, [facility] [place] [facility] [address] [id number] [place] [address]- 8093 Nov, [facility] [place] [facility] [address] [id number] [place] [address]- 1791 17 Nov, 2011 [facility] [place] [facility] [address] [id number] [place] [address]- 2018 15 Nov, 2011 [facility] [place] [facility] [address] [id number] [place] [address]- 6112 14 Nov, 2011 [facility] [place] [facility] [address] [id number] [place] [address]- 1475 13 Nov, 2011 [facility] [place] [facility] [address] [id number] [place] [address]- 8840 10 Nov, 2011 [facility] [place] [facility] [address] [facility] [id number] [place] [address]- 2555 09 Nov, 2011 [facility] [place] [facility] [address] [id number] [place] [address]- 7160 Nov, [facility] [place] [facility] [address] [id number] [place] [address]- 8856 Nov, [facility] [place] [facility] [address] [id number] [place] [address]- 9446 Nov, [facility] [place] [facility] [address] [id number] [place] [address]- 9695 Nov, [facility] [place] [facility] [address] [id number] [place] [address]- 1205 Nov, [facility] [place] [facility] [address] [id number] [place] [address]- 4661 Oct, [facility] [place] [facility] [address] [id number] [place] [address]- 7854 Oct, [facility] [place] [facility] [address] [id number] [place] [address]- 5452 Oct, [facility] [place] [facility] [address] [id number] [place] [address]- 2792 Oct, [facility] [place] [facility] [address] [id number] [place] [address]- 7505 Oct, [facility] [place] [facility] [address] [id number] [place] [address]- 3232 Oct, [facility] [place] [facility] [address] [id number] [place] [address]- 3242 Oct, [facility] [place] [facility] [address] [id number] [place] [address]- 9792 Oct, [facility] [place] [facility] [address] [id number] [place] [address]- 6042 Oct, [facility] [place] [facility] [address] [id number] [place] [address]- 7076 Sep, [facility] [place] [facility] [address] [id number] [place] [address]- 9763 Sep, [facility] [place] [facility] [address] [id number] [place] [address]- 4880 Sep, [facility] [place] [facility] [address] [id number] [place] [address]- 9244 Sep, [facility] [place] [facility] [address] [id number] [place] [address]- 2652 Sep, [facility] [place] [facility] [address] [id number] [place] [address]- 3053 Sep, [facility] [place] [facility] [address] [id number] [place] [address]- 4503 Sep, [facility] [place] [facility] [address] [id number] [place] [address]- 5948 Sep, [facility] [place] [facility] [address] [id number] [place] [address]- 4723 August, [facility] [place] [facility] [address] [id number] [place] [address]- 1973 August, [facility] [place] [facility] [address] [id number] [place] [address]- 3865 August, [facility] [place] [facility] [address] [id number] [place] [address]- 4083 August, [facility] [place] [facility] [address] [id number] [place] [address]- 2767 August, [facility] [place] [facility] [address] [id number] [place] [address]- 2564 August, [facility] [place] [facility] [address] [id number] [place] [address]- 7462 August, [facility] [place] [facility] [address] [id number] [place] [address]- 3406 August, [facility] [place] [facility] [address] [id number] [place] [address]- 7157 August, [facility] [place] [facility] [address] [facility] [id number] [place] [address]- 5822 August, [facility] [address] [facility] [id number] [place] [address]- 9466 August, [facility] [address] [facility] [id number] [place] [address]- 0470 August, [facility] [address] [facility] [id number] [place] [address]- 3384 Oct, IMMUNIZATIONS No Known Immunizations SOCIAL HISTORY [...] Surgical History bladder surgery Hospitalization History Via [facility] for right groin pain 05/2011 Hospitalization History Via [facility] for wound on buttocks 08/2012 Hospitalization History Via [facility], hypoxia secondary to pneumonia 12/02-12/09 Hospitalization History Pneumonia, elevated CO2 on Bipap was in ICU 08/2013 Hospitalization History Hypoxia, Exacerbation COPD, Chest pain 09/05/15 Hospitalization History [place] ideations-[place] 12/28 Hospitalization History hypoxia--[facility] 02/13/2016 Hospitalization History shortness of breath at june 2016 Hospitalization History Shortness of breath at august 2016 Hospitalization History SOB, chest pain at 12/2016
[2017-11-24 18:45] LABS: HCG,QUALITATIVE URINE NEGATIVE (NEGATIVE)
--- OUTSIDE RECORDS SUMMARY | 2017-11-24 18:48 | XMS REPORT ---
Author Author JIMENA ZAINAB [facility] Address [address] [place] [address] Care Team Providers Care Political Theory Professor Name Role Phone KELSEY HESSY Unavailable PROBLEMS Type Condition ICD9-CM Code [id number] Code Onset Dates Condition Status SNOMED Code Problem Primary insomnia F51.01 Active 205299493 Problem Type 2 diabetes mellitus with hyperglycemia E11.65 Active 36038484 Problem Major depressive disorder, recurrent, unspecified F33.9 Active 942010494 Problem Acute and chronic respiratory failure with hypoxia J96.21 Active [id number] Problem Microalbuminuria R80.9 Active 283320776 Problem Dysphagia, unspecified type R13.10 Active 27801682 Problem 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 Active 146204005241 Problem Morbid obesity with alveolar hypoventilation E66.2 Active 859283600 Problem Chronic tension-type headache, intractable G44.221 Active 463477880 Problem Type 2 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 Active 12341344 Problem MRSA (methicillin resistant Staphylococcus aureus) A49.02 Active 490175910 Problem Recurrent cellulitis L03.90 Active 481242892 Problem Chronic diarrhea K52.9 Active 228212365 Problem Chronic nausea R11.0 Active 877547440 Problem Gastroesophageal reflux disease, esophagitis presence not specified K21.9 Active 943886918 Problem Tinnitus of both ears H93.13 Active 4075235599259 Problem Essential hypertension I10 Active 28266653 Problem Anxiety F41.9 Active 83517771 Problem Lymphedema I89.0 Active 632372476 Problem Hypertriglyceridemia E78.1 Active 551691204 Problem Meralgia paresthetica, unspecified laterality G57.10 Active 09207356 Problem Obstructive sleep apnea G47.33 Active 43420460 Problem Low back pain M54.5 Active 715904612 ALLERGIES No Information SOCIAL HISTORY Never Assessed PLAN OF CARE VITAL SIGNS MEDICATIONS Medication Instructions Dosage Frequency Start Date End Date Duration Status Benzonatate 200 mg Orally Three times a day 1 capsule as needed 8h Apr, Active RESULTS No Results PROCEDURES No [...] Hospitalization History suicidal ideations-[place] 12/28 Hospitalization History hypoxia--[facility] 02/13/2016 Hospitalization History shortness of breath at june 2016 Hospitalization History Shortness of breath at august 2016 Hospitalization History SOB, chest pain at 12/2016
--- OUTSIDE RECORDS SUMMARY | 2017-11-24 18:49 | XMS REPORT ---
Author Author JIMENA ZAINAB [facility] Address [address] [place] [address] Care Team Providers Care Snack Stewardess Name Role Phone KELSEY HESSY Unavailable PROBLEMS Type Condition ICD9-CM Code VKP38-ZA Code Onset Dates Condition Status SNOMED Code Problem Primary insomnia F51.01 Active 765111547 Problem Type 2 diabetes mellitus with hyperglycemia E11.65 Active 92869673 Problem Major depressive disorder, recurrent, unspecified F33.9 Active 613904747 Problem Acute and chronic respiratory failure with hypoxia J96.21 Active 89043658528838791 Problem Microalbuminuria R80.9 Active 986038626 Problem Dysphagia, unspecified type R13.10 Active 08841121 Problem 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 Active 851631532580 Problem Morbid obesity with alveolar hypoventilation E66.2 Active 008091225 Problem Chronic tension-type headache, intractable G44.221 Active 663264529 Problem Type 2 diabetes mellitus with diabetic polyneuropathy E11.42 Active 75060446 Problem MRSA (methicillin resistant Staphylococcus aureus) A49.02 Active 251678260 Problem Recurrent cellulitis L03.90 Active 154937125 Problem Chronic diarrhea K52.9 Active 424369626 Problem Chronic nausea R11.0 Active 118757283 Problem Gastroesophageal reflux disease, esophagitis presence not specified K21.9 Active 055563106 Problem Tinnitus of both ears H93.13 Active 3406601516670 Problem Essential hypertension I10 Active 88949498 Problem Anxiety F41.9 Active 61707209 Problem Lymphedema I89.0 Active 188190794 Problem Hypertriglyceridemia E78.1 Active 798585990 Problem Meralgia paresthetica, unspecified laterality G57.10 Active 66074150 Problem Obstructive sleep apnea G47.33 Active 77517575 Problem Low back pain M54.5 Active 870550670 ALLERGIES No Information SOCIAL HISTORY Never Assessed [...] Hospitalization History [place] ideations-[place] 12/28 Hospitalization History hypoxia--[facility] 02/13/2016 Hospitalization History shortness of breath at june 2016 Hospitalization History Shortness of breath at august 2016
[2017-11-24 18:50] LABS: BACTERIA,URINE FEW /HPF
--- OUTSIDE RECORDS SUMMARY | 2017-11-24 18:51 | XMS REPORT ---
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 disorder 296.90 [facility] [id number] [place] [address] 66602- 4806 Oct, [facility] [address], [place] [address]- 4103 Oct, [facility] [id number], [place] [address]- 1561 Oct, [facility] [address], [place] [address]- 4313 Oct, [facility] [address], [place] [address]- 9800 Oct, [facility] [address], [place] [address]- 1461 Oct, [facility] [address], [place] [address]- 6046 Oct, [facility] [address], [place] [address]- 8577 Oct, [facility] [address] 9612 Oct, Episodic mood disorder 296.90 [facility] [address], [place] [address]- 1983 Sep, [facility] [address], [place] [address]- 3664 Sep, [facility] [address], [place] [address]- 2859 Sep, [facility] [address], [place] [address]- 5944 Sep, [facility] [address], [place] [address]- 9789 Sep, [facility] [address], [place] [address]- 8100 Sep, Episodic mood disorder 296.90 [facility] [address] [place] [address] 70951- 9262 19 Sep, 2014 Unspecified episodic mood disorder 296.90 [facility] [address], [place] [address]- 7456 18 Sep, 2014 [facility] [address] [place] [address] 62492- 6088 18 Sep, 2014 [facility] [address], [place] [address]- 2485 16 Sep, 2014 Episodic mood disorder 296.90 [facility] [address], [place] [address]- 0090 15 Sep, 2014 [facility] [address], [place] [address]- 4126 15 Sep, 2014 [facility] [address], [place] [address]- 7554 12 Sep, 2014 [facility] [address], [place] [address]- 1150 09 Sep, 2014 Hematemesis 578.0 and Vomiting 787.03 [facility] [address], [place] [address]- 0393 09 Sep, 2014 Episodic mood disorder 296.90 [facility] [address], [place] [address]- 7881 08 Sep, 2014 [facility] [address]- 1014 Sep, [facility] [address]- 7512 Sep, Diabetes mellitus without mention of complication, type II or unspecified type, not stated as uncontrolled 250.00 and Other chronic pain 338.29 [facility] [id number], [place] [address]- 4286 Sep, Episodic mood disorder 296.90 [facility] [id number] [place] [address] 985451- 1599 Sep, [facility] [id number] [place] [address] 669541- 0924 Sep, Episodic mood disorder 296.90 [facility] [address]- 1086 Sep, [facility] [address] [place] [address] 61605- 2944 August, [facility] [address], [place] [address]- 9755 August, [facility] [address], [place] [address]- 2295 August, Episodic mood disorder 296.90 [facility] [address], [place] [address]- 2082 August, [facility] [address] [address]- 6334 August, Unspecified episodic mood disorder 296.90 [facility] [address]- 8664 August, Vomiting 787.03 [facility] [address]- 1900 August, [facility] [id number]- 3698 August, [facility] [place] [facility] [address] [id number] [place] [address]- 6539 August, [facility] [place] [facility] [address] [id number] [place] [address]- 7860 August, [facility] [place] [facility] [address] [id number] [place] [address]- 1358 August, [facility] [place] [facility] [address] [id number] [place] [address]- 5991 Jul, [facility] [place] [facility] [address] [id number] [place] [address]- 3906 Jul, [facility] [place] [facility] [address] [id number] [place] [address]- 0483 Jul, [facility] [place] [facility] [address] [id number] [place] [address]- 5259 Jun, [facility] [place] [facility] [address] [id number] [place] [address]- 8226 Jun, [facility] [place] [facility] [address] [id number] [place] [address]- 0860 Jun, [facility] [place] [facility] [address] [id number] [place] [address]- 9076 Jun, [facility] [place] [facility] [address] [id number] [place] [address]- 5565 Jun, [facility] [place] [facility] [address] [id number] [place] [address]- 3652 30 Jun, 2014 [facility] [place] [facility] [address] [id number] [place] [address]- 6184 Jun, [facility] [place] [facility] [address] [id number] [place] [address]- 2054 30 Jun, 2014 [facility] [place] [facility] [address] [id number] [place] [address]- 5381 Jun, [facility] [place] [facility] [address] [id number] [place] [address]- 6096 Jun, [facility] [place] [facility] [address] [id number] [place] [address]- 9403 Jun, [facility] [place] [facility] [address] [id number] [place] [address]- 1781 Jun, [facility] [place] [facility] [address] [id number] [place] [address]- 7219 Jun, [facility] [place] [facility] [address] [id number] [place] [address]- 2035 Jun, [facility] [place] [facility] [address] [id number] [place] [address]- 0022 Jun, [facility] [place] [facility] [address] [id number] [place] [address]- 0001 Jun, [facility] [place] [facility] [address] [id number] [place] [address]- 1666 Jun, [facility] [place] [facility] [address] [id number] [place] [address]- 8050 Jun, [facility] [place] [facility] [address] [id number] [place] [address]- 2855 Jun, [facility] [place] [facility] [address] [id number] [place] [address]- 9326 Jun, [facility] [place] [facility] [address] [id number] [place] [address]- 2926 Jun, [facility] [place] [facility] [address] [id number] [place] [address]- 8833 Jun, [facility] [place] [facility] [address] [id number] [place] [address]- 6813 Jun, [facility] [place] [facility] [address] [id number] [place] [address]- 7278 Jun, [facility] [place] [facility] [address] [id number] [place] [address]- 1547 Jun, [facility] [place] [facility] [address] [id number] [place] [address]- 0212 19 Jun, 2014 [facility] [place] [facility] [address] [id number] [place] [address]- 2423 19 Jun, 2014 [facility] [place] [facility] [address] [id number] [place] [address]- 3336 18 Jun, 2014 [facility] [place] [facility] [address] [id number] [place] [address]- 4773 18 Jun, 2014 [facility] [place] [facility] [address] [id number] [place] [address]- 7240 17 Jun, 2014 [facility] [place] [facility] [address] [id number] [place] [address]- 3286 17 Jun, 2014 [facility] [place] [facility] [address] [id number] [place] [address]- 2399 16 Jun, 2014 [facility] [place] [facility] [address] [id number] [place] [address]- 9684 16 Jun, 2014 [facility] [place] [facility] [address] [id number] [place] [address]- 2099 16 Jun, 2014 [facility] [place] [facility] [address] [id number] [place] [address]- 8089 16 Jun, 2014 [facility] [place] [facility] [address] [id number] [place] [address]- 6365 16 Jun, 2014 [facility] [place] [facility] [address] [id number] [place] [address]- 4249 16 Jun, 2014 [facility] [place] [facility] [address] [id number] [place] [address]- 5827 13 Jun, 2014 [facility] [place] [facility] [address] [id number] [place] [address]- 2615 13 Jun, 2014 [facility] [place] [facility] [address] [id number] [place] [address]- 1322 12 Jun, 2014 [facility] [place] [facility] [address] [id number] [place] [address]- 7356 Jun, 2014 [facility] [place] [facility] [address] [id number] [place] [address]- 5454 Jun, 2014 [facility] [place] [facility] [address] [id number] [place] [address]- 5747 Jun, 2014 [facility] [place] [facility] [address] [id number] [place] [address]- 8844 Jun, 2014 [facility] [place] [facility] [address] [id number] [place] [address]- 1665 Jun, 2014 [facility] [place] [facility] [address] [id number] [place] [address]- 7691 Jun, 2014 [facility] [place] [facility] [address] [id number] [place] [address]- 1532 Jun, 2014 [facility] [place] [facility] [address] [id number] [place] [address]- 9498 Jun, 2014 [facility] [place] [facility] [address] [id number] [place] [address]- 3587 Jun, 2014 [facility] [place] [facility] [address] [id number] [place] [address]- 8672 Jun, [facility] [place] [facility] [address] [id number] [place] [address]- 1219 Jun, 2014 [facility] [place] [facility] [address] [id number] [place] [address]- 4217 Jun, [facility] [place] [facility] [address] [id number], [place] [address]- 8022 Jun, 2014 [facility] [place] [facility] [address] [id number] [place] [address]- 6925 Jun, 2014 [facility] [place] [facility] [address] [id number] [place] [address]- 7193 Jun, 2014 [facility] [place] [facility] [address] [id number] [place] 8595 Jun, 2014 [facility] [place] [facility] [address] [id number] [place] [address]- 5619 Jun, [facility] [place] [facility] [address] [id number] [place] [address]- 2505 May, 2014 [facility] [place] [facility] [address] [id number] [place] [address]- 1853 May, 2014 [facility] [place] [facility] [address] [facility] [id number] [place] [address] May, 2014 [facility] [place] [facility] [address] [id number] [place] [address] May, 2014 [facility] [place] [facility] [address] [id number] [place] [address] May, 2014 [facility] [place] [facility] [address] [id number] [place] [address] May, 2014 [facility] [place] [facility] [address] [id number] [place] [address] May, 2014 [facility] [place] [facility] [address] [facility] [id number] [place] [address] May, 2014 [facility] [place] [facility] [id number] [place] [address] May, 2014 [facility] [place] [facility] [address] [id number] [place] [address] May, 2014 [facility] [place] [facility] [address] [facility] [id number] [place] [address] May, 2014 [facility] [place] [facility] [address] [facility] [id number] [place] [address] May, 2014 [facility] [place] [facility] [address] [facility] [id number] [place] [address] May, 2014 [facility] [place] [facility] [address] [facility] [id number] [place] [address] May, 2014 [facility] [place] [facility] [id number] [address] May, 2014 [facility] [place] [facility] [address] [id number] [place] [address] May, 2014 [facility] [place] [facility] [address] [id number] [place] [address]686 May, 2014 [facility] [place] [facility] [address] [facility] [id number] [place] [address] May, 2014 [facility] [place] [facility] [address] [id number] [place] [address] May, 2014 [facility] [place] [facility] [address] [facility] [id number] [place] [address] May, 2014 [facility] [place] [facility] [address] [facility] [id number] [place] [address] May, 2014 [facility] [place] [facility] [address] [facility] [id number] [place] [address] May, 2014 [facility] [place] [facility] [address] [facility] [id number] [place] [address] 8936 May, 2014 [facility] [place] [facility] [address] [facility] [id number] [place] [address]146 May, 2014 [facility] [place] [facility] [address] [facility] [id number] [place] [address] May, 2014 [facility] [place] [facility] [address] [facility] [id number] [place] [address] May, 2014 [facility] [place] [facility] [address] [facility] [id number] [place] [address] May, 2014 [facility] [place] [facility] [address] [facility] [id number] [place] [address] Apr, [facility] [place] [facility] [address] [facility] [id number] [place] [address] Apr, [facility] [place] [facility] [address] [facility] [id number] [place] [address] Apr, [facility] [place] [facility] [address] [id number] [place] [address] Apr, [facility] [place] [facility] [address] [id number] [place] [address] Apr, [facility] [facility] [address] [id number] [place] [address] Apr, [facility] [place] [facility] [address] [id number] [place] [address] 6[address] Apr, [facility] [place] [facility] [address] [id number] [place] [address] 5985 Apr, [facility] [place] [facility] [address] [id number] [place] [address] 3176 Apr, [facility] [place] [facility] [address] [id number] [place] [address] 8455 Apr, [facility] [place] [facility] [address] [id number], [place] [address] 5625 Apr, [facility] [place] [facility] [address] [id number] [place] [address]- 3612 Apr, [facility] [place] [facility] [address] [id number], [place] [address] 67[address] Apr, [facility] [address] [id number], [place] [address] 3709 Apr, [facility] [address] [id number], [place] [address] 1133 Apr, [facility] [address] [id number], [place] [address] 7748 Apr, [facility] [facility] [address] [id number], [place] [address] 7416 Apr, [facility] [address] [id number], [place] [address] 9545 Apr, [facility] [facility] [address] [id number], [place] [address] 4664 Apr, [facility] [address] [id number] [place] [address]- 7092 Apr, [facility] [address] [id number] [place] [address]- 2760 Mar, [facility] [place] [facility] [address] [id number] [place] [address]- 2757 Mar, [facility] [facility] [address] [id number] [place] [address] 4364 Mar, [facility] [address] [id number] [place] [address]- 4348 Mar, [facility] [place] [facility] [address] [id number] [place] [address]- 0902 Mar, [facility] [place] [facility] [address] [id number] [place] [address]- 0442 Mar, [facility] [place] [address] [id number] [place] [address]- 2321 Mar, [facility] [place] [facility] [address] [id number] [place] [address]- 7658 18 Mar, 2014 [facility] [place] [facility] [address] [id number] [place] [address]- 1578 15 Mar, 2014 [facility] [place] [address] [id number] [place] [address]- 9309 15 Mar, 2014 [facility] [place] [address] [id number] [place] [address]- 2276 15 Mar, 2014 [facility] [place] [facility] [address] [id number] [place] [address]- 8564 15 Mar, 2014 [facility] [place] [facility] [address] [id number] [place] [address]- 5897 Mar, [facility] [place] [facility] [address] [id number] [place] [address]- 6885 Mar, [facility] [place] [facility] [address] [id number] [place] [address]- 4378 Mar, [facility] [place] [facility] [address] [id number] [place] [address] 1917 Mar, [facility] [facility] [address] [id number] [place] [address]- 8740 Feb, [facility] [place] [address] [id number] [place] [address]- 5880 Feb, [facility] [place] [facility] [address] [id number] [place] [address]- 0049 Feb, [facility] [address] [id number] [place] [address]- 7777 Feb, [facility] [address] [id number] [place] [address]- 9696 Feb, [facility] [address] [id number] [place] [address]- 0643 Feb, [facility] [address] [id number] [place] [address]- 3903 Feb, [facility] [address] [id number] [place] [address]- 0598 Feb, [facility] [address] [id number] [place] [address]- 5558 18 Feb, 2014 [facility] [address] [id number] [place] [address]- 5698 17 Feb, 2014 [facility] [address] [id number] [place] [address]- 7962 17 Feb, 2014 [facility] [place] [facility] [address] [id number] [place] [address]- 7648 17 Feb, 2014 [facility] [place] [address] [id number] [place] [address]- 7573 17 Feb, 2014 [facility] [address] [id number] [place] [address]- 7561 Feb, [facility] [address] [id number] [place] [address]- 6300 Feb, [facility] [address] [id number] [place] [address]- 6417 Feb, [facility] [address] [id number] [place] [address]- 0824 Feb, [facility] [address] [id number] [place] [address]- 0321 Feb, [facility] [address] [id number] [place] [address]- 3720 Feb, [facility] [address] [id number] [place] [address]- 6524 Feb, [facility] [address] [id number] [place] [address]- 5434 Feb, [facility] [address] [id number] [place] [address]- 6187 Jan, [facility] [address] [id number] [place] [address]- 9352 Jan, [facility] [address] [id number] [place] [address]- 4735 Jan, [facility] [address] [id number], [place] [address]- 2274 Jan, [facility] [address] [id number], [place] [address]- 6566 Jan, [facility] [address] [id number] [place] [address]- 2718 Jan, [facility] [address] [id number], [place] [address]- 0956 Jan, [facility] [address] [id number], [place] [address]- 9596 Jan, [facility] [address] [id number] [place] [address]- 1985 20 Jan, 2013 [facility] [address] [id number] [place] [address]- 4007 20 Jan, 2013 [facility] [address] [id number] [place] [address]- 9418 17 Jan, 2013 [facility] [address] [id number] [place] [address]- 8234 17 Jan, 2013 [facility] [address] [id number] [place] [address]- 0369 17 Jan, 2013 [facility] [address] [id number] [place] [address]- 9387 17 Jan, 2013 [facility] [address] [id number] [place] [address]- 9454 15 Jan, 2013 [facility] [address] [id number] [place] [address]- 7502 15 Jan, 2013 [facility] [address] [id number] [place] [address]- 5577 14 Jan, 2013 [facility] [address] [id number] [place] [address]- 9602 14 Jan, 2013 [facility] [address] [id number] [place] [address]- 8925 13 Jan, 2013 [facility] [address] [id number] [place] [address]- 8576 13 Jan, 2013 [facility] [address] [id number] [place] [address]- 9967 13 Jan, 2013 [facility] [address] [id number] [place] [address]- 6254 13 Jan, 2013 [facility] [address] [id number] [place] [address]- 2235 10 Jan, 2013 [facility] [address] [id number] [place] [address]- 1576 Jan, [facility] [address] [id number] [place] [address]- 2835 Jan, [facility] [address] [id number] [place] [address]- 6533 25 Dec, 2013 [facility] [address] [id number] [place] [address]- 4180 25 Dec, 2013 [facility] [address] [id number] [place] [address]- 0198 23 Dec, 2013 [facility] [address] [id number] [place] [address]- 9235 23 Dec, 2013 [facility] [address] [id number] [place] [address]- 9085 19 Dec, 2013 [facility] [address] [id number] [place] [address]- 9569 19 Dec, 2013 [facility] [address] [id number] [place] [address]- 9608 17 Dec, 2013 [facility] [address] [id number] [place] [address]- 6284 17 Dec, 2013 [facility] [address] [id number] [place] [address]- 1653 09 Dec, 2013 [facility] [address] [id number] [place] [address]- 2966 09 Sep, 2013 [facility] [address] [id number], [place] [address]- 2541 08 Sep, 2013 [facility] [address] [id number] [place] [address]- 4908 08 Sep, 2013 [facility] [address] [id number] [place] [address]- 9552 04 Sep, 2013 [facility] [address] [id number] [place] [address]- 5655 04 Sep, 2013 [facility] [address] [id number] [place] [address]- 2862 Dec, [facility] [address] [id number] [place] [address]- 9311 Dec, [facility] [address] [id number] [place] [address]- 4333 Dec, [facility] [address] [id number] [place] [address]- 8232 Dec, [facility] [address] [id number] [place] [address]- 5322 Nov, [facility] [address] [id number] [place] [address]- 4191 Nov, [facility] [address] [id number] [place] [address]- 1489 Nov, [facility] [address] [id number] [place] [address]- 9614 Nov, [facility] [address] [id number] [place] [address]- 8539 Nov, [facility] [address] [id number] [place] [address]- 2638 Nov, [facility] [address] [id number] [place] [address]- 0961 Nov, [facility] [address] [id number] [place] [address]- 9446 Nov, [facility] [address] [id number] [place] [address]- 7892 Nov, [facility] [address] [id number] [place] [address]- 2145 Nov, [facility] [address] [id number] [place] [address]- 7435 Nov, [facility] [address] [id number] [place] [address]- 3363 Nov, [facility] [address] [id number] [place] [address]- 8167 Oct, [facility] [address] [id number] [place] [address]- 5473 Oct, [facility] [address] [id number] [place] [address]- 0905 Oct, [facility] [address] [id number] [place] [address]- 4569 Oct, [facility] [address] [id number] [place] [address]- 5634 Oct, [facility] [address] [id number] [place] [address]- 7671 Oct, [facility] [address] [id number] [place] [address]- 8610 Oct, [facility] [address] [id number] [place] [address]- 5562 Oct, [facility] [address] [id number] [place] [address]- 2689 Oct, [facility] [address] [id number] [place] [address]- 7903 Oct, [facility] [address] [id number] [place] [address]- 0290 Oct, [facility] [address] [id number] [place] [address]- 6362 Oct, [facility] [address] [id number] [place] [address]- 6969 Oct, [facility] [address] [id number] [place] [address]- 3304 Oct, [facility] [place] [facility] [address] [id number] [place] [address]- 9322 Oct, [facility] [address] [id number] [place] [address]- 1033 Oct, [facility] [address] [id number] [place] [address]- 3495 Oct, [facility] [address] [id number] [place] [address]- 5777 Sep, [facility] [address] [id number] [place] [address]- 8585 Sep, [facility] [address] [id number] [place] [address]- 3029 Sep, [facility] [address] [id number] [place] [address]- 0677 Sep, [facility] [address] [id number] [place] [address]- 1888 Sep, [facility] [address] [id number] [place] [address]- 3268 Sep, [facility] [address] [id number] [place] [address]- 0432 17 Sep, 2013 [facility] [address] [id number] [place] [address]- 8524 Sep, [facility] [address] [id number] [place] [address]- 5587 Sep, [facility] [address] [id number], [place] [address]- 4111 Sep, [facility] [address] [id number], [place] [address]- 0277 Sep, [facility] [address] [id number] [place] [address]- 6127 Sep, [facility] [address] [id number] [place] [address]- 6082 Sep, [facility] [address] [id number], [place] [address]- 0665 Sep, [facility] [address] [id number], [place] [address]- 6911 Sep, [facility] [address] [id number] [place] [address]- 4800 Sep, [facility] [address] [id number] [place] [address]- 3053 Sep, [facility] [facility] [address] [id number] [place] [address]- 6188 Sep, [facility] [address] [id number] [place] [address]- 2804 Sep, [facility] [address] [id number] [place] [address]- 8179 Sep, [facility] [facility] [address] [id number] [place] [address]- 0455 Sep, [facility] [address] [id number] [place] [address]- 2013 Sep, [facility] [address] [id number] [place] [address]- 8132 August, [facility] [address] [id number] [place] [address]- 9671 August, [facility] [address] [id number] [place] [address]- 7148 August, [facility] [address] [id number] [place] [address]- 6773 August, [facility] [place] [address] [id number] [place] [address]- 2515 August, [facility] [place] [facility] [address] [id number] [place] [address]- 1076 August, [facility] [place] [address] [id number] [place] [address]- 1480 August, [facility] [place] [address] [id number] [place] [address]- 9198 August, [facility] [place] [facility] [address] [id number] [place] [address]- 6251 August, [facility] [place] [facility] [address] [id number] [place] [address]- 5633 August, [facility] [place] [facility] [address] [id number] [place] [address]- 6170 August, [facility] [place] [facility] [address] [id number] [place] [address]- 2712 Jul, [facility] [place] [facility] [address] [id number] [place] [address]- 3524 Jul, [facility] [place] [facility] [address] [id number] [place] [address]- 4416 Jul, [facility] [place] [facility] [address] [id number] [place] [address]- 7827 Jul, [facility] [place] [facility] [address] [id number] [place] [address]- 1415 Jul, [facility] [place] [facility] [address] [id number] [place] [address]- 2513 Jul, [facility] [place] [facility] [address] [id number] [place] [address]- 8246 Jul, [facility] [place] [facility] [address] [id number] [place] [address]- 1959 Jul, [facility] [place] [facility] [address] [id number] [place] [address]- 2305 Jul, [facility] [place] [facility] [address] [id number] [place] [address]- 3969 Jul, [facility] [place] [facility] [address] [id number] [place] [address]- 0117 16 Jul, 2013 [facility] [place] [facility] [address] [id number] [place] [address]- 2121 Jul, [facility] [place] [facility] [address] [id number] [place] [address]- 2455 Jul, [facility] [place] [facility] [address] [id number] [place] [address]- 1081 Jul, [facility] [place] [facility] [address] [id number] [place] [address]- 3065 Jul, [facility] [place] [facility] [address] [id number] [place] [address]- 6608 Jul, [facility] [place] [facility] [address] [id number] [place] [address]- 7506 Jul, [facility] [place] [facility] [address] [id number] [place] [address]- 9977 Jul, [facility] [place] [facility] [address] [id number] [place] [address]- 9841 Jul, [facility] [place] [facility] [address] [id number] [place] [address]- 9791 Jul, [facility] [place] [facility] [address] [id number] [place] [address]- 6296 Jul, [facility] [place] [facility] [address] [id number] [place] [address]- 0910 Jul, [facility] [place] [facility] [address] [id number] [place] [address]- 6966 Jul, [facility] [place] [facility] [address] [id number] [place] [address]- 1487 Jun, [facility] [place] [facility] [address] [id number] [place] [address]- 0339 Jun, [facility] [place] [facility] [address] [id number] [place] [address]- 2078 Jun, [facility] [place] [facility] [address] [id number] [place] [address]- 2982 Jun, [facility] [place] [facility] [address] [id number] [place] [address]- 2029 Jun, [facility] [place] [facility] [address] [id number] [place] [address]- 8398 21 Jun, 2013 [facility] [place] [facility] [address] [id number] [place] [address]- 4287 Jun, [facility] [place] [facility] [address] [id number] [place] [address]- 5129 Jun, [facility] [place] [facility] [address] [id number] [place] [address]- 4431 18 Jun, 2013 [facility] [place] [facility] [address] [id number] [place] [address]- 5320 18 Jun, 2013 [facility] [place] [facility] [address] [id number] [place] [address]- 0277 Jun, [facility] [place] [facility] [address] [id number] [place] [address]- 4670 Jun, [facility] [place] [facility] [address] [id number] [place] [address]- 7309 18 May, 2013 [facility] [place] [facility] [address] [id number] [place] [address]- 4751 May, [facility] [place] [facility] [address] [id number] [place] [address]- 9862 Apr, [facility] [place] [facility] [address] [id number] [place] [address]- 3562 Apr, [facility] [place] [facility] [address] [id number] [place] [address]- 2509 30 Apr, 2013 [facility] [place] [facility] [address] [id number] [place] [address]- 6801 Apr, [facility] [place] [facility] [address] [id number] [place] [address]- 3154 Apr, [facility] [place] [facility] [address] [id number] [place] [address]- 0610 Apr, [facility] [place] [facility] [address] [id number] [place] [address]- 6521 Apr, [facility] [place] [facility] [address] [id number] [place] [address]- 3738 Apr, [facility] [place] [facility] [address] [id number] [place] [address]- 7640 Apr, [facility] [place] [facility] [address] [id number] [place] [address]- 2557 Apr, [facility] [place] [facility] [address] [id number] [place] [address]- 7251 Apr, [facility] [address] [id number] [place] [address]- 2493 Mar, [facility] [place] [facility] [address] [id number] [place] [address] Mar, [facility] [address] [id number] [place] [address] Mar, [facility] [address] [id number] [place] [address] Mar, [facility] [place] [facility] [address] [id number] [place] [address] Feb, [facility] [place] [facility] [address] [id number] [place] [address] Feb, [facility] [place] [facility] [address] [id number] [place] [address] Feb, [facility] [place] [facility] [address] [id number], [place] [address] Feb, [facility] [place] [facility] [address] [id number] [place] [address] Feb, [facility] [place] [facility] [address] [id number] [place] [address] Feb, [facility] [place] [facility] [address] [id number], [place] [address] 15 Feb, 2013 [facility] [place] [facility] [address] [id number], [place] [address] Feb, [facility] [place] [facility] [address] [id number] [place] [address] Feb, [facility] [place] [facility] [address] [id number] [place] [address] Feb, [facility] [place] [facility] [address] [id number] [place] [address] Feb, [facility] [place] [facility] [address] [id number] [place] [address] Jan, [facility] [place] [facility] [address] [id number] [place] [address] Jan, [facility] [place] [facility] [address] [id number] [place] [address] Jan, [facility] [place] [facility] [address] [id number] [place] [address] Jan, [facility] [place] [facility] [address] [id number] [place] [address] Jan, [facility] [place] [facility] [address] [id number] [place] [address] Jan, [facility] [place] [facility] [address] [id number] [place] [address] Jan, [facility] [place] [facility] [address] [id number], [place] [address] Jan, [facility] [place] [facility] [address] [id number], [place] [address] 30 Dec, 2012 [facility] [place] [facility] [address] [id number] [place] [address] 25 Sep2012 [facility] [place] [facility] [address] [id number] [place] [address] 18 Sep2012 [facility] [place] [facility] [address] [id number] [place] [address] 17 Sep, 2012 [facility] [place] [facility] [address] [id number] [place] [address] 17 Dec, 2012 [facility] [place] [facility] [address] [id number] [place] [address] 16 Dec, 2012 [facility] [place] [facility] [address] [id number] [place] [address] 13 Dec, 2012 [facility] [place] [facility] [address] [id number] [place] [address] 11 Dec, 2012 [facility] [place] [facility] [address] [id number] [place] [address] 05 Dec, 2012 [facility] [place] [facility] [address] [id number] [place] [address] 115[address] 04 Dec, 2012 [facility] [place] [facility] [address] [id number] [place] [address] 30 Nov, 2012 [facility] [place] [facility] [address] [id number] [place] [address] Nov, [facility] [place] [facility] [address] [id number] [place] [address] Nov, [facility] [place] [facility] [address] [id number] [place] [address] Nov, [facility] [place] [facility] [address] [id number] [place] [address] 14 Nov, 2012 [facility] [place] [facility] [address] [id number] [place] [address] Nov, [facility] [place] [facility] [address] [id number] [place] [address] Nov, [facility] [place] [facility] [address] [id number] [place] [address] Oct, [facility] [place] [facility] [address] [id number] [place] [address] Oct, [facility] [place] [facility] [address] [id number] [place] [address] Oct, [facility] [address] [id number] [place] [address] 17 Oct, 2012 [facility] [place] [facility] [address] [id number] [place] [address] 78[address] 15 Oct, 2012 [facility] [place] [facility] [address] [id number] [place] [address]- [address] Oct, [facility] [place] [facility] [address] [id number] [place] [address] Sep, [facility] [place] [facility] [address] [id number] [place] [address]- [address] 28 Sep, 2012 [facility] [place] [facility] [address] [id number] [place] [address]- [address] 27 Sep, 2012 [facility] [place] [facility] [address] [id number] [place] [address] 7065 14 Sep, 2012 [facility] [place] [facility] [address] [id number] [place] [address]60 13 Sep, 2012 [facility] [place] [facility] [address] [id number] [place] [address] Sep, [facility] [place] [facility] [address] [id number] [place] [address]- [address]84 07 Sep, 2012 [facility] [place] [facility] [address] [id number] [place] [address] 2516 Sep, [facility] [place] [facility] [address] [id number] [place] [address] 05 Sep, 2012 [facility] [place] [facility] [address] [id number] [place] [address] August, [facility] [place] [facility] [address] [id number] [place] [address] August, [facility] [place] [facility] [address] [id number] [place] [address] August, [facility] [place] [facility] [address] [id number] [place] [address] August, [facility] [address] [id number] [place] [address] August, [facility] [address] [id number] [place] [address] August, [facility] [address] [id number] [place] [address] 25[address] August, [facility] [address] [id number] [place] [address] 2546 August, [facility] [address] [id number] [place] [address] Jul, [facility] [address] [id number] [place] [address] Jul, [facility] [address] [id number] Jul [facility] [address] [id number] [place] [address] Jun, [facility] [address] [id number] [place] [address]598 Jun, [facility] [address] [id number] [place] [address] 20[address] Jun, [facility] [address] [id number], [place] [address] Jun, [facility] [address] [id number] [place] [address] 2544 Jun, [facility] [address] [id number] [place] [address] Jun, [facility] [address] [id number] [place] [address] May, [facility] [address] [id number] [place] [address] May, [facility] [address] [id number] [place] [address] 07 May, 2012 [facility] [address] [id number] [place] [address] 07 May, 2012 [facility] [address] [id number] [place] [address] May, [facility] [address] [id number] [place] [address] Apr, [facility] [address] [id number] [place] [address] Apr, [facility] [address] [id number] [place] [address] Apr, [facility] [address] [id number] [place] [address] 47[address] Apr, [facility] [address] [id number] [place] [address] Apr, [facility] [address] [id number] [place] [address] Apr, [facility] [address] [id number] [place] [address] Mar, [facility] [address] [id number] [place] [address] Mar, [facility] [address] [id number] [place] [address] Mar, [facility] [address] [id number] [place] [address] Mar, [facility] [place] [facility] [address] [id number] [place] [address] Mar, [facility] [address] [id number] [place] [address]256 Mar, [facility] [address] [id number] [place] [address] Mar, [facility] [place] [facility] [address] [id number] [place] [address] 8070 Mar, [facility] [place] [facility] [address] [id number] [place] [address] Mar, [facility] [place] [facility] [address] [id number] [place] [address] Mar, [facility] [place] [facility] [address] [id number] [place] [address] Mar, [facility] [place] [facility] [address] [id number] [place] [address] Feb, [facility] [place] [facility] [address] [id number] [place] [address] 270[address] Feb, [facility] [place] [facility] [address] [id number] [place] [address] Feb, [facility] [place] [facility] [address] [id number] [place] [address] Feb, [facility] [place] [facility] [address] [id number] [place] [address] Feb, [facility] [place] [facility] [address] [id number] [place] [address] Feb, [facility] [place] [facility] [address] [id number], [place] [address] Feb, [facility] [place] [facility] [address] [id number], [place] [address] Feb, [facility] [place] [facility] [address] [id number] [place] [address] Feb, [facility] [place] [facility] [address] [id number] [place] [address]198 Feb, [facility] [place] [facility] [address] [id number] [place] [address] Feb, [facility] [place] [facility] [address] [id number] [place] [address]287 31 Jan, 2012 [facility] [place] [facility] [address] [id number] [place] [address]68 31 Jan, 2012 [facility] [place] [facility] [address] [id number] [place] [address] 8716 Jan, [facility] [place] [facility] [address] [id number] [place] [address] Jan, [facility] [place] [facility] [address] [id number] [place] [address] Jan, [facility] [place] [facility] [address] [id number] [place] [address] 6[address] Jan, [facility] [place] [facility] [address] [id number] [place] [address] 7[address] Jan, [facility] [place] [facility] [address] [id number] [place] [address] 24 Dec, 2011 [facility] [place] [facility] [address] [id number] [place] [address] 17 Dec, 2011 [facility] [place] [facility] [address] [id number] [place] [address]- [address]698 13 Dec, 2011 [facility] [place] [facility] [address] [id number] [place] [address]149 12 Dec, 2011 [facility] [place] [facility] [address] [id number] [place] [address]- 2373 23 Nov, 2011 [facility] [place] [facility] [address] [id number] [place] [address] 20 Nov, 2011 [facility] [place] [facility] [address] [id number] [place] [address] 17 Nov, 2011 [facility] [place] [facility] [address] [id number] [place] [address] 15 Nov, 2011 [facility] [place] [facility] [address] [id number] [place] [address]- [address]30 14 Nov, 2011 [facility] [place] [facility] [address] [id number] [place] [address] Nov, [facility] [place] [facility] [address] [id number] [place] [address]- [address]237 Nov, [facility] [place] [facility] [address] [id number] [place] [address] 9040 Nov, [facility] [place] [facility] [address] [id number] [place] [address] 58[address] Nov, [facility] [place] [facility] [address] [id number] [place] [address] 2354 Nov, [facility] [place] [facility] [address] [id number] [place] [address]- 6299 Nov, [facility] [place] [facility] [address] [id number] [place] [address]- 1789 Nov, [facility] [place] [facility] [address] [id number] [place] [address]- 9899 Nov, [facility] [place] [facility] [address] [id number] [place] [address]- [address] Oct, [facility] [place] [facility] [address] [id number] [place] [address] 4[address] Oct, [facility] [place] [facility] [address] [id number] [place] [address] 8681 Oct, [facility] [place] [facility] [address] [id number] [place] [address]- [address] Oct, [facility] [place] [facility] [address] [id number] [place] [address]- 4973 Oct, [facility] [place] [facility] [address] [id number] [place] [address]- 7808 Oct, [facility] [place] [facility] [address] [id number] [place] [address]- 9757 Oct, [facility] [place] [facility] [address] [id number] [place] [address]- 1766 Oct, [facility] [place] [facility] [address] [id number] [place] [address] Oct, [facility] [place] [facility] [address] [id number] [place] [address]- 2549 Sep, [facility] [place] [facility] [address] [id number] [place] [address]- 7242 Sep, [facility] [place] [facility] [address] [id number] [place] [address]- 1442 Sep, [facility] [place] [facility] [address] [id number] [place] [address]- [address] Sep, [facility] [place] [facility] [address] [id number] [place] [address]- 9980 Sep, [facility] [place] [facility] [address] [id number] [place] [address]- 5[address] Sep, [facility] [place] [facility] [address] [id number] [place] [address]- 4[address] Sep, [facility] [place] [facility] [address] [id number] [place] [address]- 9726 Sep, [facility] [place] [facility] [address] [id number] [place] [address]- 0864 August, [facility] [place] [facility] [address] [id number] [place] [address]- 3729 August, [facility] [place] [facility] [address] [id number] [place] [address]- 4978 August, [facility] [place] [facility] [address] [id number] [place] [address]- 2107 August, [facility] [place] [facility] [address] [id number] [place] [address]- 1712 August, [facility] [place] [facility] [address] [id number] [place] [address]- 3022 August, [facility] [place] [facility] [address] [facility] [id number], [place] [address] August, [facility] [address] [facility] [id number], [place] [address]- [address] August, [facility] [address] [id number] [address] August, [facility] [address] [id number], [place] [address] August, [facility] [address] [id number], [place] [address] August, [facility] [address] [id number] [address] [address] August, [facility] [address] [id number], [place] [address] Oct, IMMUNIZATIONS No Known Immunizations SOCIAL HISTORY [...] Hospitalization History suicidal ideations-[facility] 12/28 Hospitalization History hypoxia--[facility] 02/13/2016 Hospitalization History shortness of breath at june 2016 Hospitalization History Shortness of breath at august 2016 Hospitalization History SOB, chest pain at 12/2016
--- OUTSIDE RECORDS SUMMARY | 2017-11-24 18:51 | XMS REPORT ---
Author Author JIMENA ZAINAB [facility] Address [address] [place] [address] Care Team Providers Care Fatback Trimmer Name Role Phone KELSEY HESSY Unavailable PROBLEMS Type Condition ICD9-CM Code ZFL17-QB Code Onset Dates Condition Status SNOMED Code Problem Primary insomnia F51.01 Active 535346992 Problem Type 2 diabetes mellitus with hyperglycemia E11.65 Active 06650478 Problem Major depressive disorder, recurrent, unspecified F33.9 Active 127730140 Problem Acute and chronic respiratory failure with hypoxia J96.21 Active [id number] Problem Microalbuminuria R80.9 Active 981847202 Problem Dysphagia, unspecified type R13.10 Active 34487769 Problem 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 Active 682722325017 Problem Morbid obesity with alveolar hypoventilation E66.2 Active 917338090 Problem Chronic tension-type headache, intractable G44.221 Active 276562809 Problem Type 2 diabetes mellitus with diabetic polyneuropathy E11.42 Active 62203366 Problem MRSA (methicillin resistant Staphylococcus aureus) A49.02 Active 981537007 Problem Recurrent cellulitis L03.90 Active 708562197 Problem Chronic diarrhea K52.9 Active 776371285 Problem Chronic nausea R11.0 Active 019271571 Problem Gastroesophageal reflux disease, esophagitis presence not specified K21.9 Active 199654823 Problem Tinnitus of both ears H93.13 Active 9614505899857 Problem Essential hypertension I10 Active 60161476 Problem Anxiety F41.9 Active 85853365 Problem Lymphedema I89.0 Active 813685278 Problem Hypertriglyceridemia E78.1 Active 471056355 Problem Meralgia paresthetica, unspecified laterality G57.10 Active 17163019 Problem Obstructive sleep apnea G47.33 Active 92681610 Problem Low back pain M54.5 Active 246805575 ALLERGIES No Information SOCIAL HISTORY Never Assessed PLAN OF CARE VITAL SIGNS MEDICATIONS Medication Instructions Dosage Frequency Start Date End Date Duration Status Insulin Syringe 31G X 5/16 as directed 6h Jun, Active RESULTS No [...] Surgical History bladder surgery Hospitalization History [facility] for right groin pain 05/2011 Hospitalization History [facility] for wound on buttocks 08/2012 [...]
--- OUTSIDE RECORDS SUMMARY | 2017-11-24 18:53 | XMS REPORT ---
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 [facility] [id number] [place] [address] 44899 254 Nov, Affective disorder 296.90 [facility] [address], [place] [address] 2547 Nov, Diarrhea 787.91 [facility] [id number] [place] [address] 23880 2546 Nov, [facility] [address], [place] [address] 2546 Nov, Diarrhea 787.91 [facility] [id number] [place] [address] 06628 2546 Nov, Diarrhea 787.91 and Hyperlipidemia 272.4 [facility] [address], [place] [address] 2546 Nov, Diarrhea 787.91 [facility] [address], [place] [address]- 6042 Nov, Affective disorder 296.90 [facility] [id number] [place] [address] 03687- 6765 Nov, Affective disorder 296.90 [facility] [id number] [place] [address] 79032- 1445 17 Nov, 2014 Affective disorder 296.90 [facility] [id number] [place] [address] 18950- 2051 14 Nov, 2014 [facility] [id number] [place] [address] 32545- 0301 Nov, [facility] [id number] [place] [address] 21584- 6978 Nov, [facility] [id number] [place] [address] 05718- 3121 Nov, Episodic mood disorder 296.90 [facility] [id number] [place] [address] 76817- 6756 Nov, [facility] [id number] [place] [address] 62915- 7428 Nov, [facility] [address], [place] [address]- 9032 Nov, [facility] [id number] [place] [address] 63193- 6330 Nov, [facility] [address], [place] [address]- 3673 Nov, [facility] [id number] [place] [address] 31817- 7757 Nov, Lymphedema 457.1 ; Hyperlipidemia 272.4 ; Essential hypertension, benign 401.1 and Numbness of toes 782.0 [facility] [address], [place] [address]- 5379 Nov, Episodic mood disorder 296.90 [facility] [address] [id number] [place] [address]- 6533 Oct, 2014 [facility] [address] [facility] [id number] [place] [address]- 6146 Oct, 2014 [facility] [address] [facility] [id number] [place] [address] 2546 Oct, 2014 [facility] [place] [facility] [address] [facility] [id number] [place] [address] 2548 Oct, 2014 [facility] [address] [facility] [id number] [place] [address]- 9549 Oct, 2014 [facility] [address] [facility] [id number] [place] [address]- 1169 Oct, 2014 [facility] [address] [facility] [id number] [place] [address]- 8394 Oct, 2014 [facility] [address] [facility] [id number] [place] [address]- 9204 Oct, 2014 [facility] [address] [facility] [id number] [place] [address]- 1654 Oct, Episodic mood disorder 296.90 [facility] [address] [facility] [id number] [place] [address]- 2875 Sep, [facility] [address] [facility] [id number] [place] [address]- 8638 Sep, [facility] [place] [facility] [address] [facility] [id number] [place] [address]- 9882 Sep, [facility] [place] [facility] [address] [facility] [id number] [place] [address]- 7013 Sep, [facility] [place] [facility] [address] [facility] [id number] [place] [address]- 8741 Sep, [facility] [place] [facility] [address] [facility] [id number] [place] [address]- 2473 Sep, Episodic mood disorder 296.90 [facility] [place] [facility] [address], [place] [address]- 9317 Sep, Unspecified episodic mood disorder 296.90 [facility] [address], [place] [address]- 1140 Sep, [facility] [address], [place] [address]- 3803 Sep, [facility] [id number] [place] [address] 61697- 5940 Sep, Episodic mood disorder 296.90 [facility] [id number] [place] [address] 41047- 6210 Sep, [facility] [id number] [place] [address] 13496- 1446 Sep, [facility] [id number] [place] [address] 14313- 2382 Sep, [facility] [id number] [place] [address] 49004- 9622 Sep, Hematemesis 578.0 and Vomiting 787.03 [facility] [id number] [place] [address] 91229- 0498 Sep, Episodic mood disorder 296.90 [facility] [address], [place] [address]- 5160 Sep, [facility] [address], [place] [address]- 1847 Sep, [facility] [address], [place] [address]- 5268 Sep, Diabetes mellitus without mention of complication, type II or unspecified type, not stated as uncontrolled 250.00 and Other chronic pain 338.29 [facility] [address], [place] [address]- 0040 Sep, Episodic mood disorder 296.90 [facility] [id number] [place] [address] 06634- 8966 Sep, [facility] [id number], [place] [address]- 4783 Sep, Episodic mood disorder 296.90 [facility] [address], [place] [address]- 7366 Sep, [facility] [address], [place] [address]- 5018 August, [facility] [address], [place] [address]- 8187 August, [facility] [id number] [place] [address] 968111- 4615 August, Episodic mood disorder 296.90 [facility] [address] 3718 August, [facility] [id number] [place] [address] 29354- 2330 August, Unspecified episodic mood disorder 296.90 [facility] [address], [place] [address]- 6849 August, Vomiting 787.03 [facility] [address] 6933 August, [facility] [address], [place] [address]- 2490 August, [facility] [address], [place] [address]- 3983 August, [facility] [id number] 4187 August, [facility] [address], [place] [address]- 8836 August, [facility] [id number] [address] Jul, [facility] ([facility] [id number], [place] [address] 14 Jul, 2014 [facility] [place] [facility] [address] [id number] [place] [address] 13 Jul, 2014 [facility] [place] [facility] [address] [id number] [place] [address] 30 Jun, 2014 [facility] [place] [facility] [address] [id number] [place] [address] 30 Jun, 2014 [facility] [place] [facility] [address] [id number] [place] [address] 1336 30 Jun, 2014 [facility] [place] [facility] [address] [id number] [place] [address] Jun, [facility] [place] [facility] [address] [id number] [place] [address] Jun, [facility] [place] [facility] [address] [id number] [place] [address] Jun, [facility] [place] [facility] [address] [id number] [place] [address] Jun, [facility] [place] [facility] [address] [id number] [place] [address] Jun, [facility] [place] [facility] [address] [facility] [id number] [place] [address] Jun, [facility] [place] [facility] [address] [id number] [place] [address] Jun, [facility] [place] [facility] [address] [id number] [place] [address]- 1754 Jun, [facility] [place] [facility] [address] [id number] [place] [address] Jun, [facility] [place] [facility] [address] [facility] [id number] [place] [address] Jun, [facility] [place] [facility] [address] [id number] [place] [address]- [address] Jun, [facility] [place] [facility] [address] [id number] [place] [address] 24 Jun, 2014 [facility] [place] [facility] [address] [id number] [place] [address]- [address]36 23 Jun, 2014 [facility] [place] [facility] [address] [id number] [place] [address]- [address] 23 Jun, 2014 [facility] [place] [facility] [address] [id number] [place] [address]- 3466 23 Jun, 2014 [facility] [place] [facility] [address] [id number] [place] [address]- 8966 23 Jun, 2014 [facility] [place] [facility] [address] [id number] [place] [address]- [address]25 21 Jun, 2014 [facility] [place] [facility] [address] [id number] [place] [address] 89[address] 21 Jun, 2014 [facility] [place] [facility] [address] [id number] [place] [address] 57[address] 20 Jun, 2014 [facility] [place] [facility] [address] [id number] [place] [address] 4076 20 Jun, 2014 [facility] [place] [facility] [address] [id number] [place] [address] 8132 20 Jun, 2014 [facility] [place] [facility] [address] [id number] [place] [address]646 20 Jun, 2014 [facility] [place] [facility] [address] [id number] [place] [address]- 1473 19 Jun, 2014 [facility] [place] [facility] [address] [id number] [place] [address]- [address]70 19 Jun, 2014 [facility] [place] [facility] [address] [id number] [place] [address] 2986 18 Jun, 2014 [facility] [place] [facility] [address] [id number] [place] [address] 18 Jun, 2014 [facility] [place] [facility] [address] [id number] [place] [address]- 2986 17 Jun, 2014 [facility] [place] [facility] [address] [id number] [place] [address]- 2769 17 Jun, 2014 [facility] [place] [facility] [address] [id number] [place] [address]- 8793 16 Jun, 2014 [facility] [place] [facility] [address] [id number] [place] [address]- 2883 16 Jun, 2014 [facility] [place] [facility] [address] [id number] [place] [address]- 7949 16 Jun, 2014 [facility] [place] [facility] [address] [id number] [place] [address]- 2535 16 Jun, 2014 [facility] [place] [facility] [address] [id number] [place] [address]- [address] 16 Jun, 2014 [facility] [place] [facility] [address] [id number] [place] [address]- 9168 16 Jun, 2014 [facility] [place] [facility] [address] [id number] [place] [address]- [address] 13 Jun, 2014 [facility] [place] [facility] [address] [id number] [place] [address]- [address]287 13 Jun, 2014 [facility] [place] [facility] [address] [id number] [place] [address]- [address] Jun, [facility] [place] [facility] [address] [id number] [place] [address]- [address] Jun, [facility] [place] [facility] [address] [id number], [place] [address] Jun, 2014 [facility] [place] [facility] [address] [id number] [place] [address]- [address] Jun, 2014 [facility] [facility] [address] [id number] [place] [address] Jun, 2014 [facility] [place] [facility] [address] [id number] [place] [address] Jun, 2014 [facility] [place] [facility] [address] [id number] [place] [address] 7[address] 06 Jun, 2014 [facility] [place] [facility] [address] [id number] [place] [address] 9952 Jun, 2014 [facility] [place] [facility] [address] [id number] [place] [address] 6916 Jun, 2014 [facility] [place] [facility] [address] [id number] [place] [address] 7961 Jun, 2014 [facility] [place] [facility] [address] [id number] [place] [address] 0487 Jun, 2014 [facility] [place] [facility] [address] [id number] [place] [address] 8816 Jun, [facility] [place] [facility] [address] [facility] [id number] [place] [address] 2883 Jun, [facility] [place] [facility] [address] [facility] [id number] [place] [address]- 0043 Jun, 2014 [facility] [place] [facility] [address] [facility] [id number] [place] [address] 0808 Jun, [facility] [place] [facility] [address] [id number] [place] [address]30 Jun, [facility] [place] [facility] [address] [facility] [id number] [place] [address]- 8161 Jun, [facility] [place] [facility] [address] [id number] [place] [address]- 5544 Jun, [facility] [place] [facility] [address] [facility] [id number] [place] [address] 2063 May, [facility] [place] [facility] [address] [id number] [place] [address]- 2109 May, [facility] [place] [facility] [address] [facility] [id number] [place] [address]- 8680 May, [facility] [place] [facility] [address] [facility] [id number] [place] [address]- 1381 May, [facility] [place] [facility] [address] [id number] [place] [address]- 0743 May, 2014 [facility] [place] [facility] [address] [facility] [id number] [place] [address]- 9386 May, 2014 [facility] [place] [facility] [address] [facility] [id number] [place] [address]- 0806 May, 2014 [facility] [place] [facility] [address] [facility] [id number] [place] [address]- 3617 May, 2014 [facility] [place] [facility] [address] [facility] [id number] [place] [address]- 8445 May, 2014 [facility] [place] [facility] [address] [facility] [id number] [place] [address]- 5282 May, 2014 [facility] [place] [facility] [address] [facility] [id number] [place] [address]- 5447 18 May, 2014 [facility] [place] [facility] [address] [facility] [id number] [place] [address]- 6194 18 May, 2014 [facility] [address] [facility] [id number] [place] [address]- 1847 13 May, 2014 [facility] [place] [facility] [address] [facility] [id number] [place] [address]- 3548 13 May, 2014 [facility] [place] [facility] [address] [facility] [id number] [place] [address]- 1446 May, 2014 [facility] [address] [facility] [id number] [place] [address]- 2546 May, 2014 [facility] [facility] [address] [facility] [id number] [place] [address]- 6227 May, 2014 [facility] [address] [facility] [id number] [place] [address]- 8411 11 May, 2014 [facility] [facility] [address] [facility] [id number] [place] [address]- 4245 09 May, 2014 [facility] [place] [facility] [address] [id number] [place] [address]- 5149 May, 2014 [facility] [place] [facility] [address] [id number] [place] [address]- 2752 May, 2014 [facility] [place] [facility] [address] [id number] [place] [address]- 9177 May, 2014 [facility] [place] [facility] [address] [id number] [place] [address]- 5079 May, 2014 [facility] [address] [id number] [place] [address]- 2975 May, 2014 [facility] [place] [address] [id number] [place] [address]- 5864 May, 2014 [facility] [place] [address] [id number] [place] [address]- 9112 May, 2014 [facility] [address] [id number] [place] [address]- 6643 May, [facility] [address] [id number] [place] [address]- 8625 Apr, [facility] [address] [id number] [place] [address]- 4853 Apr, [facility] [address] [id number] [place] [address]- 9642 Apr, [facility] [address] [id number], [place] [address]- 5[address] Apr, [facility] [address] [id number] [place] [address]- 4175 Apr, [facility] [address] [id number] [place] [address]- 5119 Apr, [facility] [address] [id number] [place] [address]- 5701 Apr, [facility] [address] [id number] [place] [address]- 1077 Apr, [facility] [address] [id number] [place] [address]- 4442 Apr, [facility] [address] [id number] [place] [address]- 0162 Apr, [facility] [address] [id number] [place] [address]- 3087 Apr, [facility] [address] [id number] [place] [address]- 9063 Apr, [facility] [address] [id number] [place] [address]- 8940 Apr, [facility] [address] [id number] [place] [address]- 5757 Apr, [facility] [address] [id number] [place] [address]- 2630 Apr, [facility] [address] [id number] [place] [address]- 5994 Apr, [facility] [address] [id number] [place] [address]- 5138 Apr, [facility] [address] [id number] [place] [address]- 8365 Apr, [facility] [address] [id number] [place] [address]- 2711 Apr, [facility] [address] [id number] [place] [address]- 4304 Apr, [facility] [address] [id number] [place] [address]- 7289 Mar, [facility] [address] [id number] [place] [address]- 5681 Mar, [facility] [address] [id number] [place] [address]- 7459 Mar, [facility] [address] [id number] [place] [address]- 7882 24 Mar, 2014 [facility] [address] [id number] [place] [address]- 6126 Mar, [facility] [address] [id number] [place] Mar, [facility] [address] [id number] [place] [address]- 6804 Mar, [facility] [address] [id number] [place] [address]- 6965 18 Mar, 2014 [facility] [address] [id number] [place] [address]- 3177 15 Mar, 2014 [facility] [address] [id number] [place] [address]- 8856 15 Mar, 2014 [facility] [address] [id number] [place] [address]- 8244 15 Mar, 2014 [facility] [address] [id number] [place] [address]- 3013 Mar, [facility] [address] [id number] [place] [address]- 3617 Mar, [facility] [address] [id number] [place] [address]- 8831 Mar, [facility] [address] [id number] [place] [address]- 0277 Mar, [facility] [address] [id number] [place] [address]- 2781 Mar, [facility] [address] [id number] [place] [address]- 9424 Feb, [facility] [address] [id number] [place] [address]- 5758 Feb, [facility] [address] [id number], [place] [address]- 4266 Feb, [facility] [address] [id number] [place] [address]- 4895 Feb, [facility] [address] [id number] [place] [address]- 8900 Feb, [facility] [address] [id number] [place] [address]- 0907 19 Feb, 2014 [facility] [address] [id number] [place] [address]- 1223 19 Feb, 2014 [facility] [address] [id number] [place] [address]- 9426 18 Feb, 2014 [facility] [address] [id number] [place] [address]- 0120 18 Feb, 2014 [facility] [address] [id number] [place] [address]- 4010 17 Feb, 2014 [facility] [address] [id number] [place] [address]- 6314 17 Feb, 2014 [facility] [address] [id number] [place] [address]- 3799 17 Feb, 2014 [facility] [address] [id number] [place] [address]- 0273 17 Feb, 2014 [facility] [address] [id number], [place] [address]- 6086 14 Feb, 2014 [facility] [address] [id number], [place] [address]- 6463 14 Feb, 2014 [facility] [address] [id number] [place] [address]- 7443 14 Feb, 2014 [facility] [address] [id number] [place] [address]- 2992 14 Feb, 2014 [facility] [address] [id number], [place] [address]- 6678 10 Feb, 2014 [facility] [address] [id number] [place] [address]- 5066 Feb, [facility] [address] [id number] [place] [address]- 2854 Feb, [facility] [address] [id number] [place] [address] Feb, [facility] [address] [id number] [place] Jan, [facility] [address] [id number] [place] [address]- 8123 Jan, [facility] [address] [id number] [place] [address]- 1625 Jan, [facility] [address] [id number] [place] [address]- 9919 Jan, [facility] [address] [id number] [place] [address]- 5473 Jan, [facility] [address] [id number] [place] [address]- 9762 Jan, [facility] [address] [id number] [place] [address]- 2449 Jan, [facility] [address] [id number] [place] [address]- 7281 Jan, [facility] [address] [id number] [place] [address]- 6814 Jan, [facility] [address] [id number] [place] [address]- 6501 Jan, [facility] [address] [id number] [place]145 Jan, [facility] [address] [id number] [place] [address]- 4286 Jan, [facility] [address] [id number] [place] [address]- 7867 Jan, [facility] [address] [id number] [place] [address]- 6294 17 Jan, 2014 [facility] [address] [id number] [place] [address]- 9486 15 Jan, 2014 [facility] [address] [id number] [place] [address]- 2513 15 Jan, 2014 [facility] [address] [id number] [place] [address]- 0751 14 Jan, 2014 [facility] [address] [id number] [place] [address]- 9948 14 Jan, 2014 [facility] [address] [id number] [place] [address]- 6201 Jan, [facility] [address] [id number] [place] [address]- 3660 Jan, [facility] [address] [id number] [place] [address]- 2844 Jan, [facility] [address] [id number] [place] [address]- 1278 Jan, [facility] [address] [id number], [place] [address]- 6528 Jan, [facility] [address] [id number], [place] [address]- 2146 Jan, [facility] [address] [id number], [place] [address]- 5368 Jan, [facility] [address] [id number], [place] [address]- 0804 Dec, [facility] [address] [id number] [place] [address]- 0255 Dec, [facility] [address] [id number], [place] [address]- 7559 Dec, [facility] [address] [id number], [place] [address]- 3892 23 Sep, 2013 [facility] [address] [id number] [place] [address] 2546 19 Sep, 2013 [facility] [address] [id number] [place] [address]- 2306 19 Sep, 2013 [facility] [place] [facility] [address] [id number] [place] [address]- 1845 17 Sep, 2013 [facility] [address] [id number] [place] [address]- 7738 17 Sep, 2013 [facility] [address] [id number] [place] [address]- 2952 09 Sep, 2013 [facility] [place] [facility] [address] [id number] [place] [address]- 8668 09 Sep, 2013 [facility] [address] [id number] [place] [address]- 0917 08 Sep, 2013 [facility] [address] [id number] [place] [address]- 6509 08 Sep, 2013 [facility] [place] [address] [id number] [place] [address]- 6528 04 Sep, 2013 [facility] [place] [facility] [address] [id number] [place] [address]- 2338 04 Sep, 2013 [facility] [place] [address] [id number] [place] [address]- 4929 02 Sep, 2013 [facility] [address] [id number], [place] [address]- 2548 02 Sep, 2013 [facility] [address] [id number] [place] [address]- 5902 02 Sep, 2013 [facility] [place] [facility] [address] [id number] [place] [address]- 8403 Dec, 2013 [facility] [place] [facility] [address] [id number] [place] [address]- 0017 Nov, 2013 [facility] [place] [facility] [address] [id number] [place] [address]- 4063 Nov, [facility] [place] [facility] [address] [id number] [place] [address]- 9264 Nov, [facility] [place] [facility] [address] [id number] [place] [address]- 0049 Nov, [facility] [place] [facility] [address] [id number] [place] [address]- 8373 Nov, [facility] [place] [facility] [address] [id number] [place] [address]- 7259 Nov, [facility] [place] [facility] [address] [id number] [place] [address]- 2687 Nov, [facility] [place] [facility] [address] [id number] [place] [address]- 3309 Nov, [facility] [place] [facility] [address] [id number] [place] [address]- 4981 Nov, [facility] [place] [facility] [address] [id number] [place] [address]- 0649 Nov, [facility] [place] [facility] [address] [id number] [place] [address]- 0890 Nov, [facility] [place] [facility] [address] [id number] [place] [address]- 7530 Nov, [facility] [place] [facility] [address] [id number] [place] [address]- 7364 Oct, [facility] [place] [facility] [address] [id number] [place] [address]- 9134 Oct, [facility] [place] [facility] [address] [id number] [place] [address]- 1472 Oct, [facility] [place] [facility] [address] [id number] [place] [address]- 3174 Oct, [facility] [place] [facility] [address] [id number] [place] [address]- 3984 Oct, [facility] [place] [facility] [address] [id number] [place] [address]- 7075 Oct, [facility] [place] [facility] [address] [id number] [place] [address]- 7799 Oct, [facility] [place] [facility] [address] [id number] [place] [address]- 3836 Oct, [facility] [place] [facility] [address] [id number] [place] [address]- 3884 Oct, [facility] [place] [facility] [address] [id number] [place] [address]- 2788 Oct, [facility] [place] [facility] [address] [id number] [place] [address]- 1715 Oct, [facility] [place] [facility] [address] [id number] [place] [address]- 7814 Oct, [facility] [place] [facility] [address] [id number] [place] [address]- 6351 Oct, [facility] [place] [facility] [address] [id number] [place] [address]- 0761 Oct, [facility] [place] [facility] [address] [id number] [place] [address]- 5455 Oct, [facility] [place] [facility] [address] [id number] [place] [address]- 5552 Oct, [facility] [place] [facility] [address] [id number] [place] [address]- 9186 Oct, [facility] [place] [facility] [address] [id number] [place] [address]- 9929 Sep, [facility] [place] [facility] [address] [id number] [place] [address]- 5350 Sep, [facility] [place] [facility] [address] [id number] [place] [address]- 7174 Sep, [facility] [place] [facility] [address] [id number] [place] [address]- 5984 20 Sep, 2013 [facility] [place] [facility] [address] [id number] [place] [address]- 4925 18 Sep, 2013 [facility] [place] [facility] [address] [id number] [place] [address]- 1142 18 Sep, 2013 [facility] [place] [facility] [address] [id number] [place] [address]- 8260 17 Sep, 2013 [facility] [place] [facility] [address] [id number] [place] [address]- 1476 17 Sep, 2013 [facility] [place] [facility] [address] [id number] [place] [address]- 1257 11 Sep, 2013 [facility] [place] [facility] [address] [id number] [place] [address]- 6793 11 Sep, 2013 [facility] [place] [facility] [address] [id number] [place] [address]- 5900 Sep, [facility] [place] [facility] [address] [id number] [place] [address]- 2268 11 Sep, 2013 [facility] [place] [facility] [address] [id number] [place] [address]- 5142 Sep, [facility] [place] [facility] [address] [id number] [place] [address]- 4038 Sep, [facility] [place] [facility] [address] [id number] [place] [address]- 5610 09 Sep, 2013 [facility] [place] [facility] [address] [id number] [place] [address]- 3011 09 Sep, 2013 [facility] [place] [facility] [address] [id number] [place] [address]- 1658 07 Sep, 2013 [facility] [place] [facility] [address] [id number] [place] [address]- 9785 07 Sep, 2013 [facility] [place] [facility] [address] [id number] [place] [address]- 9303 05 Sep, 2013 [facility] [place] [facility] [address] [id number] [place] [address] Sep, [facility] [place] [facility] [address] [id number] [place] [address] Sep, [facility] [place] [facility] [address] [id number] [place] [address] Sep, [facility] [place] [facility] [address] [id number] [place] [address] August, [facility] [place] [facility] [address] [id number] [place] [address] August, [facility] [place] [facility] [address] [id number] [place] [address] August, [facility] [place] [facility] [address] [id number] [place] [address] August, [facility] [place] [facility] [address] [id number] [place] [address] August, [facility] [place] [facility] [address] [id number] [place] [address] August, [facility] [place] [facility] [address] [id number] [place] [address] August, [facility] [place] [facility] [address] [id number] [place] [address] August, [facility] [place] [facility] [address] [id number] [place] [address] August, [facility] [place] [facility] [address] [id number] [place] [address] 86[address] August, [facility] [place] [facility] [address] [id number] [place] [address] 16[address] August, [facility] [place] [facility] [address] [id number] [place] [address] Jul, [facility] [place] [facility] [address] [id number] [place] [address] 92[address] Jul, [facility] [place] [facility] [address] [id number] [place] [address] Jul, [facility] [place] [facility] [address] [id number] [place] [address]609 Jul, [facility] [place] [facility] [address] [id number] [place] [address] Jul, [facility] [place] [facility] [address] [id number] [place] [address] Jul, [facility] [place] [facility] [address] [id number] [place] [address]- 6290 Jul, [facility] [place] [facility] [address] [id number] [place] [address]- 1334 Jul, [facility] [place] [facility] [address] [id number] [place] [address]- [address] Jul, [facility] [place] [facility] [address] [id number] [place] [address]99 18 Jul, 2013 [facility] [place] [facility] [address] [id number] [place] [address] 16 Jul, 2013 [facility] [place] [facility] [address] [id number] [place] [address] 65[address] 14 Jul, 2013 [facility] [place] [facility] [address] [id number] [place] [address]31 14 Jul, 2013 [facility] [place] [facility] [address] [id number] [place] [address] 8441 11 Jul, 2013 [facility] [place] [facility] [address] [id number] [place] [address] 3930 11 Jul, 2013 [facility] [place] [facility] [address] [id number] [place] [address] 9960 10 Jul, 2013 [facility] [place] [facility] [address] [id number] [place] [address] 3336 10 Jul, 2013 [facility] [place] [facility] [address] [id number] [place] [address] 1365 Jul, [facility] [address] [id number] [place] [address] Jul, [facility] [place] [facility] [address] [id number] [place] [address] Jul, [facility] [address] [id number] [place] [address] 4067 Jul, [facility] [place] [facility] [address] [id number] [place] [address]85 Jul, [facility] [place] [facility] [address] [id number] [place] [address] Jul, [facility] [address] [id number] [place] [address] 4377 Jun, [facility] [place] [facility] [address] [id number] [place] [address] Jun, [facility] [address] [id number] [place] [address]- 6187 Jun, [facility] [place] [facility] [address] [id number] [place] [address] 8360 Jun, [facility] [address] [id number] [place] [address]684 Jun, [facility] [place] [facility] [address] [id number] [place] [address]- 8611 Jun, [facility] [place] [facility] [address] [id number] [place] [address]- [address]691 Jun, [facility] [place] [facility] [address] [id number] [place] [address]- 9664 Jun, [facility] [place] [facility] [address] [id number] [place] [address]- 9885 Jun, [facility] [place] [facility] [address] [id number] [place] [address]- 4821 Jun, [facility] [place] [facility] [address] [id number] [place] [address] 9757 Jun, [facility] [place] [facility] [address] [id number] [place] [address]- 9362 Jun, [facility] [place] [facility] [address] [id number] [place] [address]- 0765 May, [facility] [place] [facility] [address] [id number] [place] [address] May, [facility] [place] [facility] [address] [id number] [place] [address]- 7392 Apr, [facility] [place] [facility] [address] [id number] [place] [address]- 0946 Apr, [facility] [place] [facility] [address] [id number] [place] [address] 3098 Apr, [facility] [place] [facility] [address] [id number] [place] [address]- 7271 Apr, [facility] [place] [facility] [address] [id number] [place] [address] 3947 Apr, [facility] [place] [facility] [address] [id number] [place] [address]- 9457 Apr, [facility] [place] [facility] [address] [id number] [place] [address]- 6819 Apr, [facility] [place] [facility] [address] [id number] [place] [address]- 7151 Apr, [facility] [place] [facility] [address] [id number] [place] [address] 1896 Apr, [facility] [place] [facility] [address] [id number] [place] [address]- 5902 Apr, [facility] [place] [facility] [address] [id number] [place] [address] Apr, [facility] [place] [facility] [address] [id number], [place] [address] 16 Mar, 2013 [facility] [address] [id number] [place] [address]- 1255 16 Mar, 2013 [facility] [place] [facility] [address] [id number], [place] [address]- 2759 16 Mar, 2013 [facility] [address] [id number] [place] [address]- 0156 Mar, [facility] [place] [facility] [address] [id number], [place] [address] Feb, [facility] [address] [id number] [place] [address]- 2150 Feb, [facility] [place] [facility] [address] [id number], [place] [address]- [address]659 Feb, [facility] [address] [id number], [place] [address] Feb, [facility] [place] [facility] [address] [id number], [place] [address]- 0690 Feb, [facility] [address] [id number], [place] [address]- 4088 Feb, [facility] [address] [facility] [id number], [place] [address]- 8685 Feb, [facility] [address] [id number], [place] [address]- [address]85 Feb, [facility] [place] [facility] [address] [id number], [place] [address]- 4[address] Feb, [facility] [place] [facility] [address] [id number], [place] [address] Feb, [facility] [place] [facility] [address] [id number], [place] [address] Feb, [facility] [place] [facility] [address] [id number], [place] [address] Jan, [facility] [place] [facility] [address] [id number] [place] [address] 25 Jan, 2012 [facility] [place] [facility] [address] [id number] [place] [address] 1566 11 Jan, 2012 [facility] [place] [facility] [address] [id number] [place] [address] 2548 11 Jan, 2012 [facility] [place] [facility] [address] [id number] [place] [address] 8903 10 Jan, 2012 [facility] [place] [facility] [address] [id number] [place] [address] 2541 10 Jan, 2012 [facility] [place] [facility] [address] [id number] [place] [address] 8907 03 Jan, 2013 [facility] [place] [facility] [address] [id number] [place] [address]- 6988 02 Jan, 2013 [facility] [place] [facility] [address] [id number] [place] [address]- 5859 30 Sep, 2012 [facility] [place] [facility] [address] [id number] [place] [address] 2542 25 Sep, 2012 [facility] [place] [facility] [address] [id number] [place] [address]- 2547 18 Sep, 2012 [facility] [place] [facility] [address] [id number] [place] [address] 2548 17 Sep, 2012 [facility] [place] [facility] [address] [id number] [place] [address]- 2546 17 Sep, 2012 [facility] [place] [facility] [address] [id number] [place] [address] 2540 16 Sep, 2012 [facility] [place] [facility] [address] [id number] [place] [address] 2546 13 Sep, 2012 [facility] [place] [facility] [address] [id number] [place] [address]- 2540 11 Sep, 2012 [facility] [place] [facility] [address] [id number] [place] [address]- 3602 05 Dec, 2012 [facility] [place] [facility] [address] [id number] [place] [address] 5377 Dec, [facility] [place] [facility] [address] [id number] [place] [address] 2170 Nov, [facility] [place] [facility] [address] [id number] [place] [address]- 8193 Nov, [facility] [place] [facility] [address] [id number] [place] [address]- 4575 Nov, [facility] [place] [facility] [address] [id number] [place] [address]- 6071 Nov, [facility] [place] [facility] [address] [id number] [place] [address]- 9844 Nov, [facility] [place] [facility] [address] [id number] [place] [address]- 9609 Nov, [facility] [place] [facility] [address] [id number] [place] [address]- 2895 Nov, [facility] [place] [facility] [address] [id number] [place] [address]- 9132 Oct, [facility] [place] [facility] [address] [id number] [place] [address]- 7151 Oct, [facility] [place] [facility] [address] [id number] [place] [address]- 0745 Oct, [facility] [place] [facility] [address] [id number] [place] [address] 4032 Oct, [facility] [place] [facility] [address] [id number] [place] [address]- 8270 Oct, [facility] [place] [facility] [address] [id number] [place] [address]- 8085 Oct, [facility] [place] [facility] [address] [id number] [place] [address]- 5992 Sep, [facility] [place] [facility] [address] [id number] [place] [address]- 5841 28 Sep, 2012 [facility] [address] [id number] [place] [address]- 2306 27 Sep, 2012 [facility] [address] [id number] [place] [address]- 9426 14 Sep, 2012 [facility] [address] [id number] [place] [address]- 0459 13 Sep, 2012 [facility] [address] [id number] [place] [address]- 5252 10 Sep, 2012 [facility] [address] [id number] [place] [address]- 4508 07 Sep, 2012 [facility] [address] [id number] [place] [address]- 8636 06 Sep, 2012 [facility] [address] [id number] [place] [address]- 3999 05 Sep, 2012 [facility] [address] [id number] [place] [address] 9672 August, [facility] [address] [id number] [place] [address]- 2402 August, [facility] [address] [id number] [place] [address] 4880 August, [facility] [address] [id number] [place] [address]- 5950 August, [facility] [address] [id number] [place] [address] 1859 August, [facility] [place] [facility] [address] [id number] [place] August, [facility] [place] [facility] [address] [id number] [place] [address] August, [facility] [address] [id number] [place] [address] August, [facility] [address] [id number] [place] [address] 5955 Jul, [facility] [address] [id number] [place] [address]- 8528 Jul, [facility] [id number] Jul [facility] [address] [id number] [place] [address] 2019 Jun, [facility] [address] [id number] [place] [address]- 0504 Jun, [facility] [address] [id number] [place] [address]- 0397 Jun, [facility] [address] [id number] [place] [address] 1454 Jun, [facility] [address] [id number] [place] [address]- 3326 Jun, [facility] [address] [id number] [place] [address]- 8621 Jun, [facility] [address] [id number] [place] [address]- 7907 May, [facility] [address] [id number] [place] [address]- 5316 May, [facility] [address] [id number] [place] [address]- 2546 May, [facility] [address] [id number] [place] [address]- 2546 May, [facility] [address] [id number] [place] [address]- 2546 May, [facility] [address] [id number] [place] [address]- 2546 Apr, [facility] [address] [id number] [place] [address]- 2649 15 Apr, 2012 [facility] [address] [id number] [place] [address]- 2026 Apr, [facility] [place] [facility] [address] [id number] [place] [address]- 8196 Apr, [facility] [place] [facility] [address] [facility] [id number] [place] [address]- 0096 Apr, [facility] [place] [facility] [address] [id number] [place] [address]- 6446 Apr, [facility] [place] [facility] [address] [id number] [place] [address]- 8695 Mar, [facility] [place] [facility] [address] [id number] [place] [address]- 5623 Mar, [facility] [place] [facility] [address] [id number] [place] [address]- 0962 Mar, [facility] [place] [facility] [address] [id number] [place] [address]- 7201 Mar, [facility] [place] [facility] [address] [id number] [place] [address]- 8683 Mar, [facility] [place] [facility] [address] [id number] [place] [address]- 8473 18 Mar, 2012 [facility] [place] [facility] [address] [id number] [place] [address]- 9800 18 Mar, 2012 [facility] [place] [facility] [address] [id number], [place] [address]- 6520 10 Mar, 2012 [facility] [place] [facility] [address] [id number] [place] [address]- 5546 10 Mar, 2012 [facility] [place] [facility] [address] [id number] [place] [address]- 3880 05 Mar, 2012 [facility] [place] [facility] [address] [id number] [place] [address] 05 Mar, 2012 [facility] [place] [facility] [address] [id number] [place] [address]- 9949 Feb, [facility] [place] [facility] [address] [id number] [place] [address]- 6577 Feb, [facility] [place] [facility] [address] [id number] [place] [address]- 9347 Feb, [facility] [place] [facility] [address] [id number] [place] [address]- 8563 Feb, [facility] [place] [facility] [address] [id number] [place] [address]- 1809 Feb, [facility] [place] [facility] [address] [id number] [place] [address]- 4624 Feb, [facility] [place] [facility] [address] [id number] [place] [address]- 0199 Feb, [facility] [place] [facility] [address] [id number] [place] [address]- 3417 Feb, [facility] [place] [facility] [address] [id number] [place] [address]- 0195 Feb, [facility] [place] [facility] [address] [id number] [place] [address]- 5432 Feb, [facility] [place] [facility] [address] [id number] [place] [address]- 6896 Feb, [facility] [place] [facility] [address] [id number] [place] [address]- 1862 Jan, [facility] [place] [facility] [address] [id number] [place] [address]- 0469 Jan, [facility] [place] [facility] [address] [id number] [place] [address]- 7333 Jan, [facility] [place] [facility] [address] [id number] [place] [address]- 3267 Jan, [facility] [place] [facility] [address] [id number] [place] [address]- 0611 Jan, [facility] [place] [facility] [address] [id number] [place] [address]- 3736 Jan, [facility] [place] [facility] [address] [id number] [place] [address]- 9309 Jan, [facility] [place] [facility] [address] [id number] [place] [address]- 3537 24 Dec, 2011 [facility] [place] [facility] [address] [id number] [place] [address]- 3345 17 Dec, 2011 [facility] [place] [facility] [address] [id number] [place] [address]- 9321 13 Dec, 2011 [facility] [place] [facility] [address] [id number] [place] [address]- 8094 Dec, [facility] [place] [facility] [address] [id number] [place] [address]- 2922 Nov, [facility] [place] [facility] [address] [id number] [place] [address]- 3215 Nov, [facility] [place] [facility] [address] [id number] [place] [address]- 2500 Nov, [facility] [place] [facility] [address] [id number] [place] [address]- 5853 15 Nov, 2011 [facility] [place] [facility] [address] [id number] [place] [address]- 2250 14 Nov, 2011 [facility] [place] [facility] [address] [id number], [place] [address]- 8192 Nov, [facility] [place] [facility] [address] [id number] [place] [address]- 9921 Nov, [facility] [place] [facility] [address] [id number] [place] [address]- 4696 Nov, [facility] [place] [facility] [address] [id number] [place] [address]- 1763 Nov, [facility] [place] [facility] [address] [id number] [place] [address]- 1678 Nov, [facility] [place] [facility] [address] [id number] [place] [address]- 3712 Nov, [facility] [place] [facility] [address] [id number] [place]80 Nov, [facility] [place] [facility] [address] [id number] [place] [address]- 5790 Nov, [facility] [place] [facility] [address] [id number] [place] [address]- 8172 Oct, [facility] [place] [facility] [address] [id number] [place] [address]- 5228 Oct, [facility] [place] [facility] [address] [id number] [place] [address]- 9858 Oct, [facility] [place] [facility] [address] [id number] [place] [address]- 6814 Oct, [facility] [place] [facility] [address] [id number] [place] [address]- 8783 Oct, [facility] [place] [facility] [address] [id number] [place] [address]- 7692 Oct, [facility] [place] [facility] [address] [id number] [place] [address]- 1074 Oct, [facility] [place] [facility] [address] [id number] [place] [address]- 2391 Oct, [facility] [place] [facility] [address] [id number] [place] [address]- 2269 Oct, [facility] [place] [facility] [address] [id number] [place] [address]- 6428 Sep, [facility] [place] [facility] [address] [id number] [place] [address]- 8244 Sep, [facility] [place] [facility] [address] [id number] [place] [address]- 7711 Sep, [facility] [place] [facility] [address] [id number] [place] [address]- 2988 Sep, [facility] [place] [facility] [address] [id number] [place] [address]- 2703 Sep, [facility] [place] [facility] [address] [id number] [place] [address]- 4806 Sep, [facility] [place] [facility] [address] [id number] [place] [address]- 7522 Sep, [facility] [place] [facility] [address] [id number] [place] [address]- 1554 Sep, [facility] [place] [facility] [address] [id number] [place] [address]- 3051 August, [facility] [place] [facility] [address] [id number] [place] [address]- 3855 August, [facility] [place] [facility] [address] [id number] [place] [address]- 8922 August, [facility] [address] [id number] [place] [address]- 9361 August, [facility] [place] [facility] [address] [id number] [place] [address]- 9572 August, [facility] [place] [facility] [address] [id number] [place] [address]- 3439 August, [facility] [place] [facility] [address] [id number] [place] [address]- 8606 August, [facility] [place] [facility] [address] [id number] [place] [address]- 6997 August, [facility] [place] [facility] [address] [id number] [place] [address]- 0540 August, [facility] [place] [facility] [address] [id number] [place] [address]- 1762 August, [facility] [place] [facility] [address] [id number] [place] [address]- 8504 August, [facility] [address] [facility] [id number] [place] [address]- 3935 August, [facility] [address] [facility] [id number] [place] [address]- 3296 Oct, IMMUNIZATIONS No Known Immunizations SOCIAL HISTORY Never Assessed REASON FOR VISIT Requesting letter PLAN OF CARE VITAL SIGNS MEDICATIONS Unknown [...] Surgical History bladder surgery Hospitalization History [facility] for right groin pain 05/2011 Hospitalization History [facility] for wound on buttocks 08/2012 Hospitalization History [facility], hypoxia secondary to pneumonia 12/02-12/09 Hospitalization History Pneumonia, elevated CO2 on Bipap was in ICU 08/2013 Hospitalization History Hypoxia, Exacerbation COPD, Chest pain 09/05/15 Hospitalization History [place] ideations-[place] 12/28 Hospitalization History hypoxia--[facility] 02/13/2016 Hospitalization History shortness of breath at june 2016 Hospitalization History Shortness of breath at august 2016 Hospitalization History SOB, chest pain at 12/2016
[2017-11-24 18:56] LABS: AMPHETAMINE SCREEN, URINE NEGATIVE (NEGATIVE); BARBITURATE SCREEN URINE NEGATIVE (NEGATIVE); BENZODIAZEPINES SCREEN URINE NEGATIVE (NEGATIVE); CANNABINOID SCREEN, URINE NEGATIVE (NEGATIVE); COCAINE SCREEN URINE NEGATIVE (NEGATIVE); METHADONE STAT NEGATIVE (NEGATIVE); METHAMPHETAMINE SCREEN URINE S NEGATIVE (NEGATIVE); OPIATE SCREEN URINE NEGATIVE (NEGATIVE); OXYCODONE STAT NEGATIVE (NEGATIVE); PROPOXYPHENE STAT NEGATIVE (NEGATIVE); TRICYCLIC ANTIDEPRESSANTS SCRE NEGATIVE (NEGATIVE)
[2017-11-24 18:56] LABS: BASOPHILS % (AUTO) 0 % (0-10); EOSINOPHILS # (AUTO) 0.2 10^3/uL (0.0-0.3); EOSINOPHILS % (AUTO) 2 % (0-10); HEMATOCRIT 35 % (35-52); HEMOGLOBIN 11.1 G/DL (11.5-16.0); LYMPHOCYTES # (AUTO) 2.9 X 10^3 (1.0-4.0); LYMPHOCYTES % (AUTO) 33 % (12-44); MEAN CORPUSCULAR HEMOGLOBIN 28 PG (25-34); MEAN CORPUSCULAR HGB CONC 32 G/DL (32-36); MEAN CORPUSCULAR VOLUME 88 FL (80-99); MEAN PLATELET VOLUME 9.5 FL (7.4-10.4); MONOCYTES # (AUTO) 0.5 X 10^3 (0.0-1.0); MONOCYTES % (AUTO) 6 % (0-12); NEUTROPHILS # (AUTO) 5.4 X 10^3 (1.8-7.8); NEUTROPHILS % (AUTO) 60 % (42-75); PLATELET COUNT 279 10^3/uL (130-400); RED BLOOD COUNT 3.95 10^6/uL (4.35-5.85); RED CELL DISTRIBUTION WIDTH 15.9 % (10.0-14.5); WHITE BLOOD COUNT 9.1 10^3/uL (4.3-11.0)
[2017-11-24] MEDS ORDERED: LORazepam INJ 2 MG/ML (ATIVAN) VIAL IVP ONE (19:00)
--- OUTSIDE RECORDS SUMMARY | 2017-11-24 19:01 | XMS REPORT ---
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 Name Role Phone CLOVIS JAMESON Unavailable PROBLEMS Type Condition ICD9-CM Code PLK14-QR Code Onset Dates Condition Status SNOMED Code Problem Primary insomnia F51.01 Active 062736157 Problem Type 2 diabetes mellitus with hyperglycemia E11.65 Active 64087287 Problem Major depressive disorder, recurrent, unspecified F33.9 Active 449956836 Problem Acute and chronic respiratory failure with hypoxia J96.21 Active [id number] Problem Microalbuminuria R80.9 Active 539105202 Problem Dysphagia, unspecified type R13.10 Active 00484457 Problem 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 Active 922502572269 Problem Morbid obesity with alveolar hypoventilation E66.2 Active 400154141 Problem Chronic tension-type headache, intractable G44.221 Active 452450540 Problem Type 2 diabetes mellitus with diabetic polyneuropathy E11.42 Active 98356412 Problem MRSA (methicillin resistant Staphylococcus aureus) A49.02 Active 063965944 Problem Recurrent cellulitis L03.90 Active 729895442 Problem Chronic diarrhea K52.9 Active 993305420 Problem Chronic nausea R11.0 Active 522000192 Problem Gastroesophageal reflux disease, esophagitis presence not specified K21.9 Active 788728814 Problem Tinnitus of both ears H93.13 Active 2673986234078 Problem Essential hypertension I10 Active 32945003 Problem Anxiety F41.9 Active 40547486 Problem Lymphedema I89.0 Active 245436337 Problem Hypertriglyceridemia E78.1 Active 507297639 Problem Meralgia paresthetica, unspecified laterality G57.10 Active 01618485 Problem Obstructive sleep apnea G47.33 Active 15990702 Problem Low back pain M54.5 Active 828663631 ALLERGIES No Information SOCIAL HISTORY Never Assessed [...] Surgical History bladder surgery Hospitalization History [facility] for right groin pain 05/2011 Hospitalization History [facility] for wound on buttocks 08/2012 Hospitalization History Via [facility] [place], hypoxia secondary to pneumonia 12/02-12/09 Hospitalization History Pneumonia, elevated CO2 on Bipap was in ICU 08/2013 Hospitalization History Hypoxia, Exacerbation COPD, Chest pain 09/05/15 Hospitalization History [place] ideations-[place] 12/28 Hospitalization History hypoxia--[facility] 02/13/2016 Hospitalization History shortness of breath at june 2016 Hospitalization History Shortness of breath at august 2016 Hospitalization History SOB, chest pain at 12/2016
--- OUTSIDE RECORDS SUMMARY | 2017-11-24 19:01 | XMS REPORT ---
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 unspecified type, not stated as uncontrolled 250.00 and Other chronic pain 338.29 [facility] [address] [facility] [id number] [address]- 1779 Sep, Episodic mood disorder 296.90 [facility] [address], [place] [address]- 4615 Sep, [facility] [address], [place] [address]- 0264 Sep, Episodic mood disorder 296.90 [facility] [address], [place] [address]- 2775 Sep, [facility] [id number] [place] [address] 84383- 1529 August, [facility] [address], [place] [address]- 0632 August, [facility] [id number] [place] [address] 15672- 1963 August, Episodic mood disorder 296.90 [facility] [address], [place] [address]- 2395 August, [facility] [id number] [place] [address] 56324- 1376 August, Unspecified episodic mood disorder 296.90 [facility] [address], [place] [address]- 2350 August, Vomiting 787.03 [facility] [address], [place] [address]- 6754 August, [facility] [address], [place] [address]- 4186 August, [facility] [address], [place] [address]- 4108 August, [facility] [address], [place] [address]- 2404 August, [facility] [address], [place] [address]- 2546 August, [facility] [place] [facility] [address] [id number] [place] [address]- 1527 28 Jul, 2014 [facility] [place] [facility] [address] [id number] [place] [address]- 8216 Jul, [facility] [place] [facility] [address] [id number] [place] [address]- 0806 Jul, [facility] [place] [facility] [address] [id number] [place] [address]- 4113 30 Jun, 2014 [facility] [place] [facility] [address] [id number] [place] [address]- 8860 Jun, [facility] [place] [facility] [address] [id number] [place] [address]- 9421 Jun, [facility] [place] [facility] [address] [id number] [place] [address]- 9476 Jun, [facility] [place] [facility] [address] [id number] [place] [address]- 2293 Jun, [facility] [place] [facility] [address] [id number] [place] [address]- 3835 Jun, [facility] [place] [facility] [address] [id number] [place] [address]- 3684 Jun, [facility] [place] [facility] [address] [id number] [place] [address]- 8011 Jun, [facility] [place] [facility] [address] [id number] [place] [address]- 5443 Jun, [facility] [place] [facility] [address] [id number] [place] [address]- 3922 Jun, [facility] [place] [facility] [address] [id number] [place] [address]- 9172 Jun, [facility] [place] [facility] [address] [id number] [place] [address]- 5202 Jun, [facility] [place] [facility] [address] [id number] [place] [address]- 0013 26 Jun, 2014 [facility] [place] [facility] [address] [id number] [place] [address]- 2935 26 Jun, 2014 [facility] [place] [facility] [address] [id number] [place] [address]- 6018 24 Jun, 2014 [facility] [place] [facility] [address] [id number] [place] [address]- 4515 Jun, [facility] [place] [facility] [address] [id number] [place] [address]- 1221 Jun, [facility] [place] [facility] [address] [id number] [place] [address]- 4807 Jun, [facility] [place] [facility] [address] [id number] [place] [address]- 0196 Jun, [facility] [place] [facility] [address] [id number] [place] [address]- 2556 Jun, [facility] [place] [facility] [address] [id number] [place] [address]- 7420 Jun, [facility] [place] [facility] [address] [id number] [place] [address]- 5375 Jun, [facility] [place] [facility] [address] [id number] [place] [address]- 4262 20 Jun, 2014 [facility] [place] [facility] [address] [id number] [place] [address]- 5044 20 Jun, 2014 [facility] [place] [facility] [address] [id number] [place] [address]- 1795 20 Jun, 2014 [facility] [place] [facility] [address] [id number] [place] [address]- 0353 19 Jun, 2014 [facility] [place] [facility] [address] [id number] [place] [address]- 0064 19 Jun, 2014 [facility] [place] [facility] [address] [id number] [place] 3818 18 Jun, 2014 [facility] [place] [facility] [address] [id number] [place] [address]- 0999 18 Jun, 2014 [facility] [place] [facility] [address] [id number] [place] [address]- 5707 17 Jun, 2014 [facility] [place] [facility] [address] [id number] [place] [address]- 3222 17 Jun, 2014 [facility] [place] [facility] [address] [id number] [place] [address]- 0289 16 Jun, 2014 [facility] [place] [facility] [address] [id number] [place] [address]- 2256 16 Jun, 2014 [facility] [place] [facility] [address] [id number] [place] [address]- 0179 16 Jun, 2014 [facility] [place] [facility] [address] [id number] [place] [address]- 4699 16 Jun, 2014 [facility] [place] [facility] [address] [id number] [place] [address]- 2303 16 Jun, 2014 [facility] [place] [facility] [address] [id number] [place] [address]- 0586 16 Jun, 2014 [facility] [place] [facility] [address] [id number] [place] [address]- 4206 13 Jun, 2014 [facility] [place] [facility] [address] [id number] [place] [address]- 8941 13 Jun, 2014 [facility] [place] [facility] [address] [id number] [place] [address]- 9489 12 Jun, 2014 [facility] [place] [facility] [address] [id number] [place] [address]- 4626 12 Jun, 2014 [facility] [place] [facility] [address] [id number] [place] [address]- 9835 09 Jun, 2014 [facility] [place] [facility] [address] [id number] [place] [address] 09 Jun, 2014 [facility] [place] [facility] [address] [id number] [address] Jun, [facility] [place] [facility] [address] [id number] [place] [address] Jun, [facility] [place] [facility] [address] [id number] [place] [address] Jun, [facility] [place] [facility] [address] [facility] [id number] [place] [address] Jun, [facility] [place] [facility] [address] [id number] [place] [address] Jun, [facility] [place] [facility] [address] [id number] [place] [address] Jun, [facility] [place] [facility] [address] [id number] [place] [address] Jun, [facility] [place] [facility] [address] [facility] [id number] [place] [address] Jun, [facility] [place] [facility] [address] [facility] [id number] [place] [address] Jun, [facility] [place] [facility] [address] [id number] [place] [address] Jun, [facility] [place] [facility] [address] [facility] [id number] [place] [address] Jun, [facility] [place] [facility] [address] [id number] [place] [address] 79[address] Jun, [facility] [place] [facility] [address] [facility] [id number], [place] [address] Jun, [facility] [place] [facility] [address] [id number] [place] [address] Jun, [facility] [place] [facility] [address] [facility] [id number] [place] [address] May, [facility] [place] [facility] [address] [facility] [id number] [address] [address] May, [facility] [place] [facility] [address] [id number] [place] [address] May, 2014 [facility] [place] [facility] [address] [id number] [place] [address] May, 2014 [facility] [place] [facility] [address] [id number] [place] [address]- [address] May, 2014 [facility] [place] [facility] [address] [id number] [place] [address] May, 2014 [facility] [place] [facility] [address] [id number] [place] [address] May, 2014 [facility] [place] [facility] [address] [id number] [place] [address] May, 2014 [facility] [place] [facility] [address] [place] [place] [id number] [place] [address] May, 2014 [facility] [place] [facility] [address] [facility] [id number] [place] [address] May, 2014 [facility] [place] [facility] [address] [facility] [id number] [place] [address] 18 May, 2014 [facility] [place] [facility] [address] [facility] [id number] [place] [address] 18 May, 2014 [facility] [place] [facility] [address] [facility] [id number] [place] [address] 13 May, 2014 [facility] [place] [facility] [address] [facility] [id number] [place] [address]- [address] 13 May, 2014 [facility] [place] [facility] [address] [facility] [id number] [place] [address] May, 2014 [facility] [place] [facility] [address] [facility] [id number] [place] [address] May, 2014 [facility] [place] [facility] [address] [facility] [id number] [place] [address] May, 2014 [facility] [place] [facility] [address] [facility] [id number] [place] [address]- [address]27 May, 2014 [facility] [place] [facility] [address] [id number] [place] [address] May, 2014 [facility] [place] [facility] [address] [facility] [id number] [place] [address] May, 2014 [facility] [place] [facility] [address] [id number] [place] [address] May, 2014 [facility] [place] [facility] [address] [id number] [place] [address] 3168 May, 2014 [facility] [place] [facility] [address] [id number] [place] [address] 2137 May, 2014 [facility] [place] [facility] [address] [facility] [id number] [place] [address] 0736 May, 2014 [facility] [place] [facility] [address] [facility] [id number], [place] [address] May, 2014 [facility] [place] [facility] [address] [facility] [id number] [place] [address] 4115 May, 2014 [facility] [place] [facility] [address] [facility] [id number] [place] [address]- 6685 May, [facility] [place] [facility] [address] [facility] [id number], [place] [address] Apr, [facility] [place] [facility] [address] [facility] [id number], [place] [address]- [address]287 Apr, [facility] [place] [facility] [address] [id number], [place] [address] 9692 Apr, [facility] [place] [facility] [address] [facility] [id number], [place] [address]- 2297 Apr, [facility] [place] [facility] [address] [facility] [id number], [place] [address]- 0167 Apr, [facility] [place] [facility] [address] [facility] [id number], [place] [address] 3812 Apr, [facility] [place] [facility] [address] [id number] [place] [address]- 1527 Apr, [facility] [place] [facility] [address] [id number] [place] [address]- 9887 Apr, [facility] [place] [facility] [address] [id number] [place] [address]- 4006 Apr, [facility] [place] [facility] [address] [id number] [place] [address]- 3646 Apr, [facility] [place] [facility] [address] [id number] [place] [address]- 9277 Apr, [facility] [place] [facility] [address] [id number] [place] [address]- 6685 Apr, [facility] [place] [facility] [address] [id number] [place] [address]- 8677 Apr, [facility] [place] [facility] [address] [id number] [place] [address]- 3644 Apr, [facility] [place] [facility] [address] [id number] [place] [address]- 4732 Apr, [facility] [place] [facility] [address] [id number] [place] [address]- 7940 Apr, [facility] [place] [facility] [address] [id number], [place] [address]- 7235 Apr, [facility] [place] [facility] [address] [id number], [place] [address]- 3316 Apr, [facility] [place] [facility] [address] [id number] [place] [address]- 2737 Apr, [facility] [place] [facility] [address] [id number] [place] [address]- 1255 Apr, [facility] [place] [facility] [address] [id number] [place] [address]- 3691 Mar, [facility] [place] [facility] [address] [id number] [place] [address]- 4475 Mar, [facility] [place] [facility] [address] [id number] [place] [address]- 7126 Mar, [facility] [place] [facility] [address] [id number] [place] [address]- 6596 Mar, [facility] [place] [facility] [address] [id number] [place] [address]- 3016 Mar, [facility] [place] [facility] [address] [id number] [place] [address]- 7012 Mar, [facility] [place] [facility] [address] [id number] [place] [address] 1967 Mar, [facility] [place] [facility] [address] [id number] [place] [address]- 8163 Mar, [facility] [place] [facility] [address] [id number] [place] [address]- 9250 15 Mar, 2014 [facility] [place] [facility] [address] [id number] [place] [address]- 0346 15 Mar, 2014 [facility] [place] [facility] [address] [id number] [place] [address]- 5688 15 Mar, 2014 [facility] [place] [facility] [address] [id number] [place] [address] 15 Mar, 2014 [facility] [place] [facility] [address] [id number] [place] [address]- 7069 Mar, [facility] [place] [facility] [address] [id number] [place] [address] Mar, [facility] [place] [facility] [address] [id number] [place] [address]- 9096 Mar, [facility] [place] [facility] [address] [id number] [place] [address]- 0886 Mar, [facility] [place] [facility] [address] [id number] [place] [address]- 5900 Feb, [facility] [place] [facility] [address] [id number] [place] [address]- 2079 Feb, [facility] [place] [facility] [address] [id number] [place] [address]- 1138 Feb, [facility] [place] [facility] [address] [id number] [place] [address]- 6190 Feb, [facility] [place] [facility] [address] [id number] [place] [address]- 2522 Feb, [facility] [place] [facility] [address] [id number] [place] [address]- 5922 Feb, [facility] [place] [facility] [address] [id number] [place] [address]- 5474 Feb, [facility] [place] [facility] [address] [id number] [place] [address]- 9904 18 Feb, 2014 [facility] [place] [facility] [address] [id number] [place] [address]- 8501 18 Feb, 2014 [facility] [place] [facility] [address] [id number] [place] [address]- 4085 17 Feb, 2014 [facility] [place] [facility] [address] [id number] [place] [address]- 6636 17 Feb, 2014 [facility] [place] [facility] [address] [id number] [place] [address]- 8546 17 Feb, 2014 [facility] [place] [facility] [address] [id number], [place] [address]- 9950 17 Feb, 2014 [facility] [place] [facility] [address] [id number] [place] [address]- 4882 14 Feb, 2014 [facility] [place] [facility] [address] [id number] [place] [address]- 3372 14 Feb, 2014 [facility] [place] [facility] [address] [id number] [place] [address]- 3262 14 Feb, 2014 [facility] [place] [facility] [address] [id number] [place] [address]- 2437 14 Feb, 2014 [facility] [place] [facility] [address] [id number] [place] [address]- 3093 10 Feb, 2014 [facility] [place] [facility] [address] [id number] [place] [address]- 0879 10 Feb, 2014 [facility] [place] [facility] [address] [id number] [place] [address]- 5336 Feb, [facility] [place] [facility] [address] [id number] [place] [address]- 8952 Feb, [facility] [place] [facility] [address] [id number] [place] [address]- 8609 Jan, [facility] [place] [facility] [address] [id number] [place] [address]- 6568 Jan, [facility] [place] [facility] [address] [id number] [place] [address]- 7711 Jan, [facility] [place] [facility] [address] [id number] [place] [address]- 2104 Jan, [facility] [place] [facility] [address] [id number] [place] [address]- 9384 Jan, [facility] [place] [facility] [address] [id number] [place] [address]- 6537 Jan, [facility] [place] [facility] [address] [id number] [place] [address]- 8297 Jan, [facility] [place] [facility] [address] [id number] [place] [address]- 0459 Jan, [facility] [place] [facility] [address] [id number] [place] [address]- 7526 Jan, [facility] [place] [facility] [address] [id number] [place] [address]- 3680 Jan, [facility] [place] [facility] [address] [id number] [place] [address]- 1709 Jan, [facility] [place] [facility] [address] [id number] [place] [address]- 1254 17 Jan, 2013 [facility] [place] [facility] [address] [id number] [place] [address]- 3464 17 Jan, 2013 [facility] [place] [facility] [address] [id number] [place] [address]- 9808 17 Jan, 2014 [facility] [place] [facility] [address] [id number] [place] [address]- 9519 15 Jan, 2014 [facility] [place] [facility] [address] [id number] [place] [address]- 0282 15 Jan, 2014 [facility] [place] [facility] [address] [id number] [place] [address]- 2575 14 Jan, 2014 [facility] [place] [facility] [address] [id number] [place] [address]- 6023 14 Jan, 2014 [facility] [place] [facility] [address] [id number] [place] [address]- 2712 13 Jan, 2014 [facility] [place] [facility] [address] [id number] [place] [address]- 6186 13 Jan, 2014 [facility] [place] [facility] [address] [id number] [place] [address]- 6449 13 Jan, 2014 [facility] [place] [facility] [address] [id number] [place] [address]- 7449 13 Jan, 2014 [facility] [place] [facility] [address] [id number] [place] [address]- 2588 10 Jan, 2014 [facility] [place] [facility] [address] [id number] [place] [address]- 9360 02 Jan, 2014 [facility] [place] [facility] [address] [id number] [place] [address]- 8279 02 Jan, 2014 [facility] [place] [facility] [address] [id number] [place] [address]- 2663 25 Dec, 2013 [facility] [place] [facility] [address] [id number] [place] [address]- 6648 25 Sep, 2013 [facility] [place] [facility] [address] [id number] [place] [address]- 9579 23 Sep, 2013 [facility] [place] [facility] [address] [id number] [place] [address]- 5216 23 Sep, 2013 [facility] [place] [facility] [address] [id number] [place] [address] 2546 19 Sep, 2013 [facility] [place] [facility] [address] [id number] [place] [address]- 2544 19 Sep, 2013 [facility] [place] [facility] [address] [id number] [place] [address]- 0152 17 Sep, 2013 [facility] [place] [facility] [address] [id number] [place] [address]- 4369 17 Sep, 2013 [facility] [place] [facility] [address] [id number] [place] [address]- 5306 09 Sep, 2013 [facility] [place] [facility] [address] [id number] [place] [address]- 5522 09 Sep, 2013 [facility] [place] [facility] [address] [id number] [place] [address]- 6924 08 Sep, 2013 [facility] [place] [facility] [address] [id number] [place] [address]- 2271 08 Sep, 2013 [facility] [place] [facility] [address] [id number], [place] [address]- 6050 04 Sep, 2013 [facility] [place] [facility] [address] [id number], [place] [address]- 254 04 Sep, 2013 [facility] [place] [facility] [address] [id number] [place] [address]- 2543 02 Sep, 2013 [facility] [place] [facility] [address] [id number] [place] [address]- 2923 02 Sep, 2013 [facility] [place] [facility] [address] [id number] [place] [address]- 0678 02 Sep, 2013 [facility] [place] [facility] [address] [id number] [place] [address]- 7652 Dec, [facility] [place] [facility] [address] [id number] [place] [address]- 5457 Nov, [facility] [place] [facility] [address] [id number] [place] [address]- 0303 Nov, [facility] [place] [facility] [address] [id number] [place] [address]- 8777 Nov, [facility] [place] [facility] [address] [id number] [place] [address]- 8748 Nov, [facility] [place] [facility] [address] [id number] [place] [address]- 1137 Nov, [facility] [place] [facility] [address] [id number] [place] [address]- 2356 Nov, [facility] [place] [facility] [address] [id number] [place] [address]- 9652 Nov, [facility] [place] [facility] [address] [id number] [place] [address]- 0360 Nov, [facility] [place] [facility] [address] [id number] [place] [address]- 1617 Nov, [facility] [place] [facility] [address] [id number] [place] [address]- 6076 Nov, [facility] [place] [facility] [address] [id number] [place] [address]- 5657 Nov, [facility] [place] [facility] [address] [id number] [place] [address]- 2148 Nov, [facility] [place] [facility] [address] [id number] [place] [address]- 1009 Oct, [facility] [place] [facility] [address] [id number] [place] [address]- 7931 Oct, [facility] [place] [facility] [address] [id number] [place] [address]- 5497 Oct, [facility] [place] [facility] [address] [id number] [place] [address]- 5138 Oct, [facility] [place] [facility] [address] [id number] [place] [address]- 7112 Oct, [facility] [place] [facility] [address] [id number] [place] [address]- 7021 Oct, [facility] [place] [facility] [address] [id number] [place] [address]- 4368 Oct, [facility] [place] [facility] [address] [id number] [place] [address]- 4456 Oct, [facility] [place] [facility] [address] [id number] [place] [address]- 1662 Oct, [facility] [place] [facility] [address] [id number] [place] [address]- 3215 Oct, [facility] [place] [facility] [address] [id number] [place] [address]- 8250 Oct, [facility] [place] [facility] [address] [id number] [place] [address]- 6482 Oct, [facility] [place] [facility] [address] [id number] [place] [address]- 8107 Oct, [facility] [place] [facility] [address] [id number] [place] [address]- 8068 Oct, [facility] [place] [facility] [address] [id number] [place] [address]- 4067 Oct, [facility] [place] [facility] [address] [id number] [place] [address]- 4246 Oct, [facility] [place] [facility] [address] [id number] [place] [address]- 4436 Oct, [facility] [place] [facility] [address] [id number] [place] [address]- 0952 Sep, [facility] [place] [facility] [address] [id number] [place] [address]- 5977 Sep, [facility] [place] [facility] [address] [id number] [place] [address]- 3690 Sep, [facility] [place] [facility] [address] [id number] [place] [address]- 1756 20 Sep, 2013 [facility] [place] [facility] [address] [id number] [place] [address]- 4086 18 Sep, 2013 [facility] [place] [facility] [address] [id number] [place] [address]- 9839 18 Sep, 2013 [facility] [place] [facility] [address] [id number] [place] [address]- 0585 17 Sep, 2013 [facility] [place] [facility] [address] [id number] [place] [address]- 0526 17 Sep, 2013 [facility] [place] [facility] [address] [facility] [id number] [place] [address]- 8349 Sep, [facility] [place] [facility] [address] [id number] [place] [address]- 1037 Sep, [facility] [place] [facility] [address] [id number] [place] [address]- 4745 Sep, [facility] [place] [facility] [address] [facility] [id number] [place] [address]- 5090 Sep, [facility] [place] [facility] [address] [id number] [place] [address]- 8243 Sep, [facility] [place] [facility] [address] [id number] [place] [address]- 5350 Sep, [facility] [place] [facility] [address] [id number] [place] [address]- 4926 09 Sep, 2013 [facility] [place] [facility] [address] [id number] [place] [address]- 3371 09 Sep, 2013 [facility] [place] [facility] [address] [facility] [id number] [place] [address]- 6750 07 Sep, 2013 [facility] [place] [facility] [address] [id number] [place] [address]- 4065 Sep, [facility] [place] [facility] [address] [id number] [place] [address]- 0907 Sep, [facility] [place] [facility] [address] [id number] [place] [address]- 5645 Sep, [facility] [place] [facility] [address] [id number] [place] [address]- 1203 Sep, [facility] [place] [facility] [address] [id number] [place] [address]- 0149 Sep, [facility] [place] [facility] [address] [id number] [place] [address]- 7162 August, [facility] [place] [facility] [address] [id number] [place] [address]- 5369 August, [facility] [place] [facility] [address] [id number] [place] [address]- 0823 August[facility] [place] [facility] [address] [id number] [place] [address]- 2011 August, [facility] [place] [facility] [address] [id number] [place] [address]- 9363 August, [facility] [place] [facility] [address] [id number] [place] [address]- 7847 August, [facility] [place] [facility] [address] [id number] [place] [address]- 7325 August, [facility] [place] [facility] [address] [id number] [place] [address]- 3607 August, [facility] [place] [facility] [address] [id number] [place] 0411 August, [facility] [place] [facility] [address] [id number] [place] [address]- 6530 August, [facility] [place] [facility] [address] [id number] [place] [address]- 2050 August, [facility] [place] [facility] [address] [id number] [place] [address]- 0938 Jul, [facility] [place] [facility] [address] [id number] [place] [address]- 5070 Jul, [facility] [place] [facility] [address] [id number] [place] [address]- 0286 Jul, [facility] [place] [facility] [address] [id number] [place] [address]- 5310 Jul, [facility] [place] [facility] [address] [id number] [place] [address]- 1918 Jul, [facility] [place] [facility] [address] [id number] [place] [address]- 6846 Jul, [facility] [place] [facility] [address] [id number] [place] [address]- 2394 Jul, [facility] [place] [facility] [address] [id number] [place] [address]- 3266 Jul, [facility] [place] [facility] [address] [id number] [place] [address]- 3899 Jul, [facility] [place] [facility] [address] [id number] [place] [address]- 2154 Jul, [facility] [place] [facility] [address] [id number] [place] [address]- 1638 16 Jul, 2013 [facility] [place] [facility] [address] [id number] [place] [address]- 6436 Jul, [facility] [place] [facility] [address] [id number] [place] [address]- 6077 Jul, [facility] [place] [facility] [address] [id number] [place] [address]- 4922 Jul, [facility] [place] [facility] [address] [id number] [place] [address]- 7970 Jul, [facility] [place] [facility] [address] [id number] [place] [address]- 9085 Jul, [facility] [place] [facility] [address] [id number] [place] [address]- 3103 Jul, [facility] [place] [facility] [address] [id number] [place] [address]- 6580 Jul, [facility] [place] [facility] [address] [id number] [place] [address]- 8614 Jul, [facility] [place] [facility] [address] [id number] [place] [address]- 0235 Jul, [facility] [place] [facility] [address] [id number] [place] [address]- 0485 Jul, [facility] [place] [facility] [address] [id number] [place] [address]- 3727 Jul, [facility] [place] [facility] [address] [id number] [place] [address]- 9919 Jul, [facility] [place] [facility] [address] [id number] [place] [address]- 1593 Jun, [facility] [place] [facility] [address] [id number] [place] [address] Jun, [facility] [place] [facility] [address] [id number] [place] [address] Jun, [facility] [place] [facility] [address] [id number] [place] [address] Jun, [facility] [place] [facility] [address] [id number] [place] [address] Jun, [facility] [place] [facility] [address] [id number] [place] [address] Jun, [facility] [place] [facility] [address] [id number] [place] [address] Jun, [facility] [place] [facility] [address] [id number] [place] [address] Jun, [facility] [place] [facility] [address] [id number] [place] [address] 18 Jun, 2013 [facility] [place] [facility] [address] [id number] [place] [address] 18 Jun, 2013 [facility] [place] [facility] [address] [id number] [place] [address] 17 Jun, 2013 [facility] [place] [facility] [address] [id number] [place] [address] 17 Jun, 2013 [facility] [place] [facility] [address] [id number] [place] [address] May, [facility] [place] [facility] [address] [id number] [place] [address] May, [facility] [place] [facility] [address] [id number] [place] [address] Apr, [facility] [place] [facility] [address] [id number] [place] [address] Apr, [facility] [place] [facility] [address] [id number] [place] [address] Apr, [facility] [place] [facility] [address] [id number] [place] [address] Apr, [facility] [place] [facility] [address] [id number] [place] [address] Apr, [facility] [place] [facility] [address] [id number] [place] [address] Apr, [facility] [place] [facility] [address] [id number] [place] [address]- [address] Apr, [facility] [place] [facility] [address] [id number] [place] [address]- [address] Apr, [facility] [place] [facility] [address] [id number] [place] [address] 14 Apr, 2013 [facility] [place] [facility] [address] [id number] [address] Apr, [facility] [address] [id number] [place] [address]- [address] Apr, [facility] [place] [facility] [address] [id number] [place] [address] Mar, [facility] [place] [facility] [address] [id number] [place] [address] 34[address] Mar, [facility] [place] [facility] [address] [id number] [place] [address]- [address] Mar, [facility] [place] [facility] [address] [id number] [place] [address]293 Mar, [facility] [place] [facility] [address] [id number] [place] [address] Feb, [facility] [place] [facility] [address] [id number] [place] [address] Feb, [facility] [place] [facility] [address] [id number] [place] [address] Feb, [facility] [place] [facility] [address] [id number] [place] [address] Feb, [facility] [place] [facility] [address] [id number] [place] [address] 25[address] Feb, [facility] [place] [facility] [address] [id number], [place] [address] Feb, [facility] [place] [facility] [address] [id number], [place] [address] Feb, [facility] [place] [facility] [address] [id number], [place] [address] Feb, [facility] [place] [facility] [address] [id number], [place] [address] Feb, [facility] [place] [facility] [address] [id number] [place] [address] Feb, [facility] [place] [facility] [address] [id number] [place] [address] 02 Feb, 2013 [facility] [place] [facility] [address] [id number] [place] [address] Jan, 2012 [facility] [place] [facility] [address] [id number] [place] [address] Jan, [facility] [place] [facility] [address] [id number] [place] [address]- [address] Jan, 2012 [facility] [place] [facility] [address] [id number] [place] [address]- [address] Jan, 2012 [facility] [place] [facility] [address] [id number] [place] [address]- [address] Jan, [facility] [place] [facility] [address] [id number] [place] [address]- [address] Jan, [facility] [place] [facility] [address] [id number] [place] [address]- [address]65 Jan, [facility] [address] [id number] [place] [address]- [address] 02 Jan, 2013 [facility] [place] [facility] [address] [id number] [place] [address]- [address] 30 Sep, 2012 [facility] [place] [facility] [address] [id number] [place] [address]- [address] 25 Sep, 2012 [facility] [place] [facility] [address] [id number] [place] [address]- [address]44 18 Sep, 2012 [facility] [place] [facility] [address] [id number] [place] [address]- 2548 17 Sep, 2012 [facility] [place] [facility] [address] [id number] [place] [address] 2547 17 Sep, 2012 [facility] [place] [facility] [address] [id number] [place] [address]- 2549 16 Sep, 2012 [facility] [place] [facility] [address] [id number] [place] [address]- [address]47 13 Dec, 2012 [facility] [place] [facility] [address] [id number] [place] [address]- [address] 11 Dec, 2012 [facility] [place] [facility] [address] [id number] [place] [address]- [address] 05 Dec, 2012 [facility] [place] [facility] [address] [id number] [place] [address]- [address] 04 Dec, 2012 [facility] [place] [facility] [address] [id number] [place] [address]- [address] 30 Nov, 2012 [facility] [place] [facility] [address] [id number] [place] [address] Nov, [facility] [place] [facility] [address] [id number] [place] [address] 6036 Nov, [facility] [place] [facility] [address] [id number] [place] [address]- [address]85 Nov, [facility] [place] [facility] [address] [id number] [place] [address] Nov, [facility] [place] [facility] [address] [id number] [place] [address] Nov, [facility] [place] [facility] [address] [id number] [place] [address] Nov, [facility] [place] [facility] [address] [id number] [place] [address]104 Oct, [facility] [place] [facility] [address] [id number] [place] [address] Oct, [facility] [place] [facility] [address] [id number] [place] [address] Oct, [facility] [place] [facility] [address] [id number] [place] [address] Oct, [facility] [place] [facility] [address] [id number] [place] [address]678 15 Oct, 2012 [facility] [place] [facility] [address] [id number] [place] [address] Oct, [facility] [address] [id number] [place] [address] 138[address] 28 Sep, 2012 [facility] [place] [facility] [address] [id number] [place] [address] Sep, [facility] [address] [id number] [place] [address] 1368 Sep, [facility] [place] [facility] [address] [id number] [place] [address] 14 Sep, 2012 [facility] [address] [id number] [place] [address] 7973 13 Sep, 2012 [facility] [address] [id number] [place] [address] 36[address] Sep, [facility] [address] [id number] [place] [address] 8095 Sep, [facility] [address] [id number] [place] [address] 86[address] Sep, [facility] [address] [id number] [place] [address] 9259 Sep, [facility] [address] [id number] [place] [address] 29[address] August, [facility] [address] [id number] [place] [address] 40[address] August, [facility] [place] [facility] [address] [id number] [place] [address] 36[address] August, [facility] [place] [facility] [address] [id number] [place] [address] 4395 August, [facility] [place] [facility] [address] [id number] [place] [address] 8366 August, [facility] [place] [facility] [address] [id number] [place] [address] 7031 August, [facility] [place] [facility] [address] [id number] [place] [address] 4856 August, [facility] [address] [id number] [place] [address] 4106 August, [facility] [place] [facility] [address] [id number] [place] [address] Jul, [facility] [place] [facility] [address] [id number] [place] [address]676 Jul, [facility] [address] [place] [id number] Jul [facility] [address] [id number] [place] [address] 60[address] Jun, [facility] [place] [facility] [address] [id number] [place] [address]16 Jun, [facility] [place] [facility] [address] [id number] [place] [address] 8875 Jun, [facility] [place] [facility] [address] [id number] [place] [address] 6562 Jun, [facility] [address] [id number] [place] [address] 9345 Jun, [facility] [place] [facility] [address] [facility] [id number] [place] [address] 5976 Jun, [facility] [place] [facility] [address] [id number] [place] [address] 4266 May, [facility] [place] [facility] [address] [id number] [place] [address] 2546 May, [facility] [address] [id number] [place] [address] 2546 May, [facility] [address] [id number] [place] [address] 2546 May, [facility] [place] [facility] [address] [id number] [place] [address] 9255 May, [facility] [address] [id number] [place] [address] 7[address] Apr, [facility] [place] [facility] [address] [id number] [place] [address] 9695 Apr, [facility] [place] [facility] [address] [id number] [place] [address] 9385 Apr, [facility] [place] [facility] [address] [id number] [place] [address] 6858 Apr, [facility] [address] [id number] [place] [address] 4048 Apr, [facility] [address] [id number] [place] [address] 5498 Apr, [facility] [address] [id number] [place] [address] 8264 Mar, [facility] [place] [facility] [address] [id number] [place] [address] Mar, [facility] [place] [facility] [address] [id number] [place] [address] 1873 Mar, [facility] [place] [facility] [address] [id number] [place] [address] 3747 Mar, [facility] [place] [facility] [address] [id number] [place] [address] 8298 Mar, [facility] [place] [facility] [address] [id number] [address] 18 Mar, 2012 [facility] [place] [facility] [address] [id number] [place] [address] 2105 18 Mar, 2012 [facility] [place] [facility] [address] [id number] [place] [address] 8507 Mar, [facility] [place] [facility] [address] [id number] [place] [address] 10 Mar, 2012 [facility] [place] [facility] [address] [id number] [place] [address]- 3825 05 Mar, 2012 [facility] [place] [facility] [address] [id number] [place] [address]- 4321 05 Mar, 2012 [facility] [place] [facility] [address] [id number] [place] [address] 8567 Feb, [facility] [place] [facility] [address] [id number] [place] [address] 9055 Feb, [facility] [place] [facility] [address] [id number] [place] [address] 6566 Feb, [facility] [place] [facility] [address] [id number] [place] [address] 7534 Feb, [facility] [place] [facility] [address] [id number] [place] [address]- 2526 Feb, [facility] [place] [facility] [address] [id number] [place] [address] 4679 Feb, [facility] [place] [facility] [address] [id number] [place] [address] 4303 Feb, [facility] [place] [facility] [address] [id number] [place] [address]- 4655 Feb, [facility] [place] [facility] [address] [facility] [id number] [place] [address] 4230 Feb, [facility] [place] [facility] [address] [id number] [place] [address] 6767 Feb, [facility] [place] [facility] [address] [id number], [place] [address] Feb, [facility] [place] [facility] [address] [id number] [place] [address] 6259 Jan, [facility] [place] [facility] [address] [facility] [id number] [place] [address] 8814 Jan, [facility] [place] [facility] [address] [facility] [id number][place] [address] 4037 Jan, [facility] [place] [facility] [address] [id number] [place] [address]- 1113 Jan, [facility] [place] [facility] [address] [id number] [place] [address]- 7522 Jan, [facility] [place] [facility] [address] [id number] [place] [address]- 3226 Jan, [facility] [place] [facility] [address] [id number] [place] [address]- 2572 Jan, [facility] [place] [facility] [address] [id number] [place] [address]- 3680 24 Dec, 2011 [facility] [place] [facility] [address] [id number] [place] [address]- 1391 17 Dec, 2011 [facility] [place] [facility] [address] [id number] [place] [address]- 1134 13 Dec, 2011 [facility] [place] [facility] [address] [id number] [place] [address]- 4879 12 Dec, 2011 [facility] [place] [facility] [address] [id number] [place] [address]- 0447 Nov, [facility] [place] [facility] [address] [id number] [place] [address]- 1766 Nov, [facility] [place] [facility] [address] [id number] [place] [address]- 6090 17 Nov, 2011 [facility] [place] [facility] [address] [id number] [place] [address]- 8071 15 Nov, 2011 [facility] [place] [facility] [address] [id number] [place] [address]- 0269 14 Nov, 2011 [facility] [place] [facility] [address] [id number] [place] [address]- 1168 13 Nov, 2011 [facility] [place] [facility] [address] [id number] [place] [address]- 6509 10 Nov, 2011 [facility] [place] [facility] [address] [id number] [place] [address]- 4301 Nov, [facility] [place] [facility] [address] [id number] [place] [address]- 5515 Nov, [facility] [place] [facility] [address] [id number] [place] [address]- 0573 Nov, [facility] [place] [facility] [address] [id number] [place] [address]- 9520 Nov, [facility] [place] [facility] [address] [id number] [place] [address]- 1330 Nov, [facility] [place] [facility] [address] [id number] [place] [address]- 1060 Nov, [facility] [place] [facility] [address] [id number] [place] [address]- 7799 Oct, [facility] [place] [facility] [address] [id number] [place] [address]- 8337 Oct, [facility] [place] [facility] [address] [id number] [place] [address]- 2634 Oct, [facility] [place] [facility] [address] [id number] [place] [address]- 8768 Oct, [facility] [place] [facility] [address] [id number] [place] [address]- 8365 Oct, [facility] [place] [facility] [address] [id number] [place] [address]- 8352 Oct, [facility] [place] [facility] [address] [id number] [place] [address]- 4074 Oct, [facility] [place] [facility] [address] [id number] [place] [address]- 8197 Oct, [facility] [place] [facility] [address] [id number] [place] [address]- 1858 Oct, [facility] [place] [facility] [address] [id number] [place] [address]- 1790 Sep, [facility] [place] [facility] [address] [id number] [place] [address]- 0330 Sep, [facility] [address] [id number] [place] [address]- 4663 Sep, [facility] [place] [facility] [address] [id number] [place] [address]- 2756 Sep, [facility] [address] [id number] [place] [address]- 9982 Sep, [facility] [place] [facility] [address] [id number] [place] [address]- 5069 Sep, [facility] [address] [id number] [place] [address]- 1645 Sep, [facility] [address] [id number] [place] [address]- 7445 Sep, [facility] [address] [id number] [place] [address]- 1166 August, [facility] [address] [id number] [place] [address]- 7355 August, [facility] [address] [id number] [place] [address]- 7444 August, [facility] [address] [id number] [place] [address]- 3280 August, [facility] [place] [facility] [address] [id number] [place] [address]- 5935 August, [facility] [address] [id number] [place] [address]- 1479 August, [facility] [place] [facility] [address] [id number] [place] [address]- 0361 August, [facility] [place] [facility] [address] [id number] [place] [address]- 9368 August, [facility] [address] [id number] [place] [address]- 8853 August, [facility] [address] [facility] [id number] [place] [address]- 5336 August, [facility] [address] [facility] [id number], [place] [address] 2546 August, [facility] [address] [facility] [id number], [place] [address]- 6656 August, [facility] [address] [facility] [id number], [place] [address] 2546 Oct, IMMUNIZATIONS No Known Immunizations SOCIAL HISTORY Never Assessed REASON FOR VISIT Med Refill PLAN OF CARE VITAL SIGNS MEDICATIONS Medication Instructions Dosage Frequency Start Date End Date Duration Status Chlorhexidine Gluconate 4 % Externally daily -avoid face, head, genitals as directed Jul, Sep, 10 days Active RESULTS No Results PROCEDURES No [...] Hospitalization History suicidal ideations-[place] 12/28 Hospitalization History hypoxia--[facility] 02/13/2016 Hospitalization History shortness of breath at june 2016 Hospitalization History Shortness of breath at august 2016 Hospitalization History SOB, chest pain at 12/2016
--- OUTSIDE RECORDS SUMMARY | 2017-11-24 19:03 | XMS REPORT ---
Author Author IJMENA ZAINAB [facility] Address [address] [place] [address] Care Team Providers Care Training Technician Name Role Phone ZAINAB HESS Unavailable PROBLEMS Type Condition ICD9-CM Code BVL11-LM Code Onset Dates Condition Status SNOMED Code Problem Primary insomnia F51.01 Active 965559376 Problem Type 2 diabetes mellitus with hyperglycemia E11.65 Active 71876099 Problem Major depressive disorder, recurrent, unspecified F33.9 Active 468369435 Problem Acute and chronic respiratory failure with hypoxia J96.21 Active [id number] Problem Microalbuminuria R80.9 Active 136764734 Problem Dysphagia, unspecified type R13.10 Active 86665336 Problem 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 Active 233218910580 Problem Morbid obesity with alveolar hypoventilation E66.2 Active 755141630 Problem Chronic tension-type headache, intractable G44.221 Active 813981675 Problem Type 2 diabetes mellitus with diabetic polyneuropathy E11.42 Active 73772925 Problem MRSA (methicillin resistant Staphylococcus aureus) A49.02 Active 293728709 Problem Recurrent cellulitis L03.90 Active 594933715 Problem Chronic diarrhea K52.9 Active 107679195 Problem Chronic nausea R11.0 Active 798460451 Problem Gastroesophageal reflux disease, esophagitis presence not specified K21.9 Active 048118974 Problem Tinnitus of both ears H93.13 Active 6361395020123 Problem Essential hypertension I10 Active 15918356 Problem Anxiety F41.9 Active 68411008 Problem Lymphedema I89.0 Active 297803992 Problem Hypertriglyceridemia E78.1 Active 926771139 Problem Meralgia paresthetica, unspecified laterality G57.10 Active 36799766 Problem Obstructive sleep apnea G47.33 Active 63276667 Problem Low back pain M54.5 Active 706742394 ALLERGIES No Information SOCIAL HISTORY Never Assessed [...] Surgical History bladder surgery Hospitalization History [facility] for right groin pain 05/2011 Hospitalization History [facility] for wound on buttocks 08/2012 [...]
--- OUTSIDE RECORDS SUMMARY | 2017-11-24 19:03 | XMS REPORT ---
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 [address]- 6504 05 Sep, 2014 Diabetes mellitus without mention of complication, type II or unspecified type, not stated as uncontrolled 250.00 and Other chronic pain 338.29 [facility] [address] [facility] [id number] [address]- 6145 Sep, Episodic mood disorder 296.90 [facility] [address], [place] [address]- 5141 Sep, [facility] [address], [place] [address]- 2923 Sep, Episodic mood disorder 296.90 [facility] [address], [place] [address]- 5845 Sep, [facility] [id number] [place] [address] 41803- 4563 August, [facility] [address], [place] [address]- 9932 August, [facility] [id number] [place] [address] 83021- 8647 August, Episodic mood disorder 296.90 [facility] [address], [place] [address]- 9540 August, [facility] [id number] [place] [address] 33990- 0699 August, Unspecified episodic mood disorder 296.90 [facility] [address], [place] [address]- 9225 August, Vomiting 787.03 [facility] [address], [place] [address]- 7988 August, [facility] [address], [place] [address]- 9866 August, [facility] [address], [place] [address]- 9303 August, [facility] [address], [place] [address]- 7915 August, [facility] [address], [place] [address]- 2546 August, [facility] [place] [facility] [address] [id number] [place] [address]- 0332 28 Jul, 2014 [facility] [place] [facility] [address] [id number] [place] [address]- 4446 Jul, [facility] [place] [facility] [address] [id number] [place] [address]- 6032 Jul, [facility] [place] [facility] [address] [id number] [place] [address]- 1060 30 Jun, 2014 [facility] [place] [facility] [address] [id number] [place] [address]- 8832 Jun, [facility] [place] [facility] [address] [id number] [place] [address]- 1197 Jun, [facility] [place] [facility] [address] [id number] [place] [address]- 2614 Jun, [facility] [place] [facility] [address] [id number] [place] [address]- 4744 Jun, [facility] [place] [facility] [address] [id number] [place] [address]- 6768 Jun, [facility] [place] [facility] [address] [id number] [place] [address]- 8651 Jun, [facility] [place] [facility] [address] [id number] [place] [address]- 1125 Jun, [facility] [place] [facility] [address] [id number] [place] [address]- 5875 Jun, [facility] [place] [facility] [address] [id number] [place] [address]- 8534 Jun, [facility] [place] [facility] [address] [id number] [place] [address]- 6801 Jun, [facility] [place] [facility] [address] [id number] [place] [address]- 8416 Jun, [facility] [place] [facility] [address] [id number] [place] [address]- 3592 26 Jun, 2014 [facility] [place] [facility] [address] [id number] [place] [address]- 2731 26 Jun, 2014 [facility] [place] [facility] [address] [id number] [place] [address]- 5499 24 Jun, 2014 [facility] [place] [facility] [address] [id number] [place] [address]- 2603 Jun, [facility] [place] [facility] [address] [id number] [place] [address]- 6921 Jun, [facility] [place] [facility] [address] [id number] [place] [address]- 7197 Jun, [facility] [place] [facility] [address] [id number] [place] [address]- 0748 Jun, [facility] [place] [facility] [address] [id number] [place] [address]- 3313 Jun, [facility] [place] [facility] [address] [id number] [place] [address]- 9898 Jun, [facility] [place] [facility] [address] [id number] [place] [address]- 9834 Jun, [facility] [place] [facility] [address] [id number] [place] [address]- 9341 20 Jun, 2014 [facility] [place] [facility] [address] [id number] [place] [address]- 7573 20 Jun, 2014 [facility] [place] [facility] [address] [id number] [place] [address]- 2528 20 Jun, 2014 [facility] [place] [facility] [address] [id number] [place] [address]- 9854 19 Jun, 2014 [facility] [place] [facility] [address] [id number] [place] [address]- 4120 19 Jun, 2014 [facility] [place] [facility] [address] [id number] [place] 4949 18 Jun, 2014 [facility] [place] [facility] [address] [id number] [place] [address]- 2983 18 Jun, 2014 [facility] [place] [facility] [address] [id number] [place] [address]- 5375 17 Jun, 2014 [facility] [place] [facility] [address] [id number] [place] [address]- 9430 17 Jun, 2014 [facility] [place] [facility] [address] [id number] [place] [address]- 4229 16 Jun, 2014 [facility] [place] [facility] [address] [id number] [place] [address]- 2826 16 Jun, 2014 [facility] [place] [facility] [address] [id number] [place] [address]- 0606 16 Jun, 2014 [facility] [place] [facility] [address] [id number] [place] [address]- 7331 16 Jun, 2014 [facility] [place] [facility] [address] [id number] [place] [address]- 0676 16 Jun, 2014 [facility] [place] [facility] [address] [id number] [place] [address]- 1644 16 Jun, 2014 [facility] [place] [facility] [address] [id number] [place] [address]- 7659 13 Jun, 2014 [facility] [place] [facility] [address] [id number] [place] [address]- 8680 13 Jun, 2014 [facility] [place] [facility] [address] [id number] [place] [address]- 7522 12 Jun, 2014 [facility] [place] [facility] [address] [id number] [place] [address]- 0440 12 Jun, 2014 [facility] [place] [facility] [address] [id number] [place] [address]- 2384 09 Jun, 2014 [facility] [place] [facility] [address] [id number] [place] [address]- 6940 09 Jun, 2014 [facility] [place] [facility] [address] [id number], [place] [address]- 7642 Jun, [facility] [place] [facility] [address] [id number] [place] [address]- 3200 Jun, [facility] [place] [facility] [address] [id number] [place] [address]- 9005 Jun, [facility] [place] [facility] [address] [facility] [id number] [place] [address] Jun, [facility] [place] [facility] [address] [id number] [place] [address] Jun, [facility] [place] [facility] [address] [id number] [place] [address] Jun, [facility] [place] [facility] [address] [id number] [place] [address] Jun, [facility] [place] [facility] [address] [facility] [id number] [place] [address] Jun, [facility] [place] [facility] [address] [facility] [id number] [place] [address]- [address] Jun, [facility] [place] [facility] [address] [id number] [place] [address] Jun, [facility] [place] [facility] [address] [facility] [id number] [place] [address] Jun, [facility] [place] [facility] [address] [id number] [place] [address] Jun, [facility] [place] [facility] [address] [facility] [id number], [place] [address] Jun, [facility] [place] [facility] [address] [id number] [place] [address] Jun, [facility] [place] [facility] [address] [facility] [id number] [place] [address] May, [facility] [place] [facility] [address] [facility] [id number][place] [address] [address] May, [facility] [place] [facility] [address] [id number] [place] [address] May, 2014 [facility] [place] [facility] [address] [id number] [place] [address]- [address]36 May, 2014 [facility] [place] [facility] [address] [id number] [place] [address]- [address]6 May, 2014 [facility] [place] [facility] [address] [id number] [place] [address]- [address]44 May, 2014 [facility] [place] [facility] [address] [id number] [place] [address]- [address] May, 2014 [facility] [place] [facility] [address] [id number] [place] [address]- [address] May, 2014 [facility] [place] [facility] [address] [id number] [place] [address] May, 2014 [facility] [place] [facility] [address] [facility] [id number] [place] [address]- [address] May, 2014 [facility] [place] [facility] [address] [facility] [id number] [place] [address]- [address] 18 May, 2014 [facility] [place] [facility] [address] [facility] [id number] [place] [address]- [address] 18 May, 2014 [facility] [place] [facility] [address] [facility] [id number] [place] [address]- [address] 13 May, 2014 [facility] [place] [facility] [address] [facility] [id number] [place] [address]- [address] 13 May, 2014 [facility] [place] [facility] [address] [facility] [id number] [place] [address]- [address]46 May, 2014 [facility] [place] [facility] [address] [facility] [id number] [place] [address]- [address]266 May, 2014 [facility] [place] [facility] [address] [facility] [id number] [place] [address]- [address]49 May, 2014 [facility] [place] [facility] [address] [facility] [id number] [place] [address]- [address] May, 2014 [facility] [place] [facility] [address] [id number] [place] [address]- 3567 May, 2014 [facility] [place] [facility] [address] [facility] [id number] [place] [address]- [address]684 May, 2014 [facility] [place] [facility] [address] [id number] [place] [address]- [address] May, 2014 [facility] [place] [facility] [address] [id number] [place] [address]- [address] May, 2014 [facility] [place] [facility] [address] [id number] [place] [address]- [address]17 May, 2014 [facility] [place] [facility] [address] [facility] [id number] [place] [address]- [address]294 May, 2014 [facility] [place] [facility] [address] [facility] [id number], [place] [address] May, 2014 [facility] [place] [facility] [address] [facility] [id number] [place] [address]- [address] May, 2014 [facility] [place] [facility] [address] [facility] [id number] [place] [address]- 8075 May, [facility] [place] [facility] [address] [facility] [id number], [place] [address] Apr, [facility] [place] [facility] [address] [facility] [id number], [place] [address] Apr, [facility] [place] [facility] [address] [id number], [place] [address] Apr, [facility] [place] [facility] [address] [facility] [id number], [place] [address] Apr, [facility] [place] [facility] [address] [facility] [id number], [place] [address] Apr, [facility] [place] [facility] [address] [facility] [id number], [place] [address] 1318 Apr, [facility] [place] [facility] [address] [id number] [place] [address] 3258 Apr, [facility] [place] [facility] [address] [id number] [place] [address]- 6651 Apr, [facility] [place] [facility] [address] [id number] [place] [address]- 1067 Apr, [facility] [place] [facility] [address] [id number] [place] [address]- 4217 Apr, [facility] [place] [facility] [address] [id number] [place] [address]- 0890 Apr, [facility] [place] [facility] [address] [id number] [place] [address]- 7317 Apr, [facility] [place] [facility] [address] [id number] [place] [address]- 8403 Apr, [facility] [place] [facility] [address] [id number] [place] [address]- 0448 Apr, [facility] [place] [facility] [address] [id number] [place] [address]- 6889 Apr, [facility] [place] [facility] [address] [id number] [place] [address]- 3819 Apr, [facility] [place] [facility] [address] [id number], [place] [address]- 0917 Apr, [facility] [place] [facility] [address] [id number], [place] [address] 2495 Apr, [facility] [place] [facility] [address] [id number] [place] [address]- 9258 Apr, [facility] [place] [facility] [address] [id number] [place] [address]- 0318 Apr, [facility] [place] [facility] [address] [id number] [place] [address]- 1210 Mar, [facility] [place] [facility] [address] [id number] [place] [address]- 8855 Mar, [facility] [place] [facility] [address] [id number] [place] [address]- 0156 Mar, [facility] [place] [facility] [address] [id number] [place] [address]- 6166 Mar, [facility] [place] [facility] [address] [id number] [place] [address]- 8706 Mar, [facility] [place] [facility] [address] [id number] [place] [address]- 6048 Mar, [facility] [place] [facility] [address] [id number] [place] [address]- 8569 Mar, [facility] [place] [facility] [address] [id number] [place] [address]- 5711 Mar, [facility] [place] [facility] [address] [id number] [place] [address]- 5273 15 Mar, 2014 [facility] [place] [facility] [address] [id number] [place] [address]- 9656 15 Mar, 2014 [facility] [place] [facility] [address] [id number] [place] [address]- 4275 15 Mar, 2014 [facility] [place] [facility] [address] [id number] [place] [address]- 5983 15 Mar, 2014 [facility] [place] [facility] [address] [id number] [place] [address]- 6718 Mar, [facility] [place] [facility] [address] [id number] [place] [address] Mar, [facility] [place] [facility] [address] [id number] [place] [address]- 3916 Mar, [facility] [place] [facility] [address] [id number] [place] [address]- 5876 Mar, [facility] [place] [facility] [address] [id number] [place] [address]- 2012 Feb, [facility] [place] [facility] [address] [id number] [place] [address]- 8486 Feb, [facility] [place] [facility] [address] [id number] [place] [address]- 5363 Feb, [facility] [place] [facility] [address] [id number] [place] [address]- 3502 Feb, [facility] [place] [facility] [address] [id number] [place] [address]- 8372 Feb, [facility] [place] [facility] [address] [id number] [place] [address]- 4115 Feb, [facility] [place] [facility] [address] [id number] [place] [address]- 1882 Feb, [facility] [place] [facility] [address] [id number] [place] [address]- 2323 18 Feb, 2014 [facility] [place] [facility] [address] [id number] [place] [address]- 2328 18 Feb, 2014 [facility] [place] [facility] [address] [id number] [place] [address]- 8242 17 Feb, 2014 [facility] [place] [facility] [address] [id number] [place] [address]- 4082 17 Feb, 2014 [facility] [place] [facility] [address] [id number] [place] [address]- 2392 17 Feb, 2014 [facility] [place] [facility] [address] [id number], [place] [address]- 1524 17 Feb, 2014 [facility] [place] [facility] [address] [id number] [place] [address]- 1160 14 Feb, 2014 [facility] [place] [facility] [address] [id number] [place] [address]- 2999 14 Feb, 2014 [facility] [place] [facility] [address] [id number] [place] [address]- 0534 14 Feb, 2014 [facility] [place] [facility] [address] [id number] [place] [address]- 8366 14 Feb, 2014 [facility] [place] [facility] [address] [id number] [place] [address]- 6715 10 Feb, 2014 [facility] [place] [facility] [address] [id number] [place] [address]- 8523 10 Feb, 2014 [facility] [place] [facility] [address] [id number] [place] [address]- 0717 Feb, [facility] [place] [facility] [address] [id number] [place] [address]- 9026 Feb, [facility] [place] [facility] [address] [id number] [place] [address]- 1945 Jan, [facility] [place] [facility] [address] [id number] [place] [address]- 4321 Jan, [facility] [place] [facility] [address] [id number] [place] [address]- 8413 Jan, [facility] [place] [facility] [address] [id number] [place] [address]- 1748 Jan, [facility] [place] [facility] [address] [id number] [place] [address]- 7967 Jan, [facility] [place] [facility] [address] [id number] [place] [address]- 6715 Jan, [facility] [place] [facility] [address] [id number] [place] [address]- 7600 Jan, [facility] [place] [facility] [address] [id number] [place] [address]- 3887 Jan, [facility] [place] [facility] [address] [id number] [place] [address]- 9938 Jan, [facility] [place] [facility] [address] [id number] [place] [address]- 5702 Jan, [facility] [place] [facility] [address] [id number] [place] [address]- 3500 Jan, [facility] [place] [facility] [address] [id number] [place] [address]- 8024 17 Jan, 2013 [facility] [place] [facility] [address] [id number] [place] [address]- 1503 17 Jan, 2013 [facility] [place] [facility] [address] [id number] [place] [address]- 7737 17 Jan, 2014 [facility] [place] [facility] [address] [id number] [place] [address]- 2199 15 Jan, 2014 [facility] [place] [facility] [address] [id number] [place] [address]- 2140 15 Jan, 2014 [facility] [place] [facility] [address] [id number] [place] [address]- 3628 14 Jan, 2014 [facility] [place] [facility] [address] [id number] [place] [address]- 6949 14 Jan, 2014 [facility] [place] [facility] [address] [id number] [place] [address]- 6351 13 Jan, 2014 [facility] [place] [facility] [address] [id number] [place] [address]- 5775 13 Jan, 2014 [facility] [place] [facility] [address] [id number] [place] [address]- 7932 13 Jan, 2014 [facility] [place] [facility] [address] [id number] [place] [address]- 2646 13 Jan, 2014 [facility] [place] [facility] [address] [id number] [place] [address]- 4725 10 Jan, 2014 [facility] [place] [facility] [address] [id number] [place] [address]- 4227 02 Jan, 2014 [facility] [place] [facility] [address] [id number] [place] [address]- 5546 02 Jan, 2014 [facility] [place] [facility] [address] [id number] [place] [address]- 1959 25 Dec, 2013 [facility] [place] [facility] [address] [id number] [place] [address]- 3942 25 Sep, 2013 [facility] [place] [facility] [address] [id number] [place] [address]- 7616 23 Sep, 2013 [facility] [place] [facility] [address] [id number] [place] [address]- 9166 23 Sep, 2013 [facility] [place] [facility] [address] [id number] [place] [address] 2546 19 Sep, 2013 [facility] [place] [facility] [address] [id number] [place] [address]- 2549 19 Sep, 2013 [facility] [place] [facility] [address] [id number] [place] [address]- 4980 17 Sep, 2013 [facility] [place] [facility] [address] [id number] [place] [address]- 6203 17 Sep, 2013 [facility] [place] [facility] [address] [id number] [place] [address]- 7133 09 Sep, 2013 [facility] [place] [facility] [address] [id number] [place] [address]- 5796 09 Sep, 2013 [facility] [place] [facility] [address] [id number] [place] [address]- 6889 08 Sep, 2013 [facility] [place] [facility] [address] [id number] [place] [address]- 6786 08 Sep, 2013 [facility] [place] [facility] [address] [id number], [place] [address]- 0624 04 Sep, 2013 [facility] [place] [facility] [address] [id number], [place] [address]- 2541 04 Sep, 2013 [facility] [place] [facility] [address] [id number] [place] [address]- 2549 02 Sep, 2013 [facility] [place] [facility] [address] [id number] [place] [address]- 6211 02 Sep, 2013 [facility] [place] [facility] [address] [id number] [place] [address]- 7489 02 Sep, 2013 [facility] [place] [facility] [address] [id number] [place] [address]- 5480 Dec, [facility] [place] [facility] [address] [id number] [place] [address]- 3290 Nov, [facility] [place] [facility] [address] [id number] [place] [address]- 4015 Nov, [facility] [place] [facility] [address] [id number] [place] [address]- 6848 Nov, [facility] [place] [facility] [address] [id number] [place] [address]- 5803 Nov, [facility] [place] [facility] [address] [id number] [place] [address]- 7772 Nov, [facility] [place] [facility] [address] [id number] [place] [address]- 8877 Nov, [facility] [place] [facility] [address] [id number] [place] [address]- 3338 Nov, [facility] [place] [facility] [address] [id number] [place] [address]- 1233 Nov, [facility] [place] [facility] [address] [id number] [place] [address]- 8685 Nov, [facility] [place] [facility] [address] [id number] [place] [address]- 2209 Nov, [facility] [place] [facility] [address] [id number] [place] [address]- 1257 Nov, [facility] [place] [facility] [address] [id number] [place] [address]- 2333 Nov, [facility] [place] [facility] [address] [id number] [place] [address]- 8840 Oct, [facility] [place] [facility] [address] [id number] [place] [address]- 2609 Oct, [facility] [place] [facility] [address] [id number] [place] [address]- 2115 Oct, [facility] [place] [facility] [address] [id number] [place] [address]- 2466 Oct, [facility] [place] [facility] [address] [id number] [place] [address]- 2990 Oct, [facility] [place] [facility] [address] [id number] [place] [address]- 9042 Oct, [facility] [place] [facility] [address] [id number] [place] [address]- 3286 Oct, [facility] [place] [facility] [address] [id number] [place] [address]- 1791 Oct, [facility] [place] [facility] [address] [id number] [place] [address]- 5978 Oct, [facility] [place] [facility] [address] [id number] [place] [address]- 8169 Oct, [facility] [place] [facility] [address] [id number] [place] [address]- 1669 Oct, [facility] [place] [facility] [address] [id number] [place] [address]- 8930 Oct, [facility] [place] [facility] [address] [id number] [place] [address]- 5124 Oct, [facility] [place] [facility] [address] [id number] [place] [address]- 7189 Oct, [facility] [place] [facility] [address] [id number] [place] [address]- 0141 Oct, [facility] [place] [facility] [address] [id number] [place] [address]- 6033 Oct, [facility] [place] [facility] [address] [id number] [place] [address]- 2902 Oct, [facility] [place] [facility] [address] [id number] [place] [address]- 5184 Sep, [facility] [place] [facility] [address] [id number] [place] [address]- 0028 Sep, [facility] [place] [facility] [address] [id number] [place] [address]- 9597 Sep, [facility] [place] [facility] [address] [id number] [place] [address]- 6922 20 Sep, 2013 [facility] [place] [facility] [address] [id number] [place] [address]- 6273 18 Sep, 2013 [facility] [place] [facility] [address] [id number] [place] [address]- 7126 18 Sep, 2013 [facility] [place] [facility] [address] [id number] [place] [address]- 2519 17 Sep, 2013 [facility] [place] [facility] [address] [id number] [place] [address]- 5221 17 Sep, 2013 [facility] [place] [facility] [address] [facility] [id number] [place] [address]- 7822 Sep, [facility] [place] [facility] [address] [id number] [place] [address]- 5494 Sep, [facility] [place] [facility] [address] [id number] [place] [address]- 3490 Sep, [facility] [place] [facility] [address] [facility] [id number] [place] [address]- 4488 Sep, [facility] [place] [facility] [address] [id number] [place] [address]- 1168 Sep, [facility] [place] [facility] [address] [id number] [place] [address]- 7805 Sep, [facility] [place] [facility] [address] [id number] [place] [address]- 6555 09 Sep, 2013 [facility] [place] [facility] [address] [id number] [place] [address]- 3264 09 Sep, 2013 [facility] [place] [facility] [address] [facility] [id number] [place] [address]- 2830 07 Sep, 2013 [facility] [place] [facility] [address] [id number] [place] [address]- 0770 Sep, [facility] [place] [facility] [address] [id number] [place] [address]- 3560 Sep, [facility] [place] [facility] [address] [id number] [address]- 1488 Sep, [facility] [place] [facility] [address] [id number] [place] [address]- 7535 Sep, [facility] [place] [facility] [address] [id number] [place] [address]- 5175 Sep, [facility] [place] [facility] [address] [id number] [place] [address]- 2184 August, [facility] [place] [facility] [address] [id number] [place] [address]- 7591 August, [facility] [place] [facility] [address] [id number] [place] [address]- 6369 August, [facility] [place] [facility] [address] [id number] [place] [address]- 6394 August, [facility] [place] [facility] [address] [id number] [place] [address]- 7527 August, [facility] [place] [facility] [address] [id number] [place] [address]- 2776 August, [facility] [place] [facility] [address] [id number] [place] [address]- 3650 August, [facility] [place] [facility] [address] [id number] [place] [address]- 1728 August, [facility] [place] [facility] [address] [id number] [place] 7578 August, [facility] [place] [facility] [address] [id number] [place] [address]- 1943 August, [facility] [place] [facility] [address] [id number] [place] [address]- 2623 August, [facility] [place] [facility] [address] [id number] [place] [address]- 9389 Jul, [facility] [place] [facility] [address] [id number] [place] [address]- 9886 Jul, [facility] [place] [facility] [address] [id number] [place] [address]- 7852 Jul, [facility] [place] [facility] [address] [id number] [place] [address]- 3497 Jul, [facility] [place] [facility] [address] [id number] [place] [address]- 9759 Jul, [facility] [place] [facility] [address] [id number] [place] [address]- 1115 Jul, [facility] [place] [facility] [address] [id number] [place] [address]- 1841 Jul, [facility] [place] [facility] [address] [id number] [place] [address]- 0405 Jul, [facility] [place] [facility] [address] [id number] [place] [address]- 5084 Jul, [facility] [place] [facility] [address] [id number] [place] [address]- 8015 Jul, [facility] [place] [facility] [address] [id number] [place] [address]- 5542 16 Jul, 2013 [facility] [place] [facility] [address] [id number] [place] [address]- 5360 Jul, [facility] [place] [facility] [address] [id number] [place] [address]- 2469 Jul, [facility] [place] [facility] [address] [id number] [place] [address]- 2946 Jul, [facility] [place] [facility] [address] [id number] [place] [address]- 2366 Jul, [facility] [place] [facility] [address] [id number] [place] [address]- 6632 Jul, [facility] [place] [facility] [address] [id number] [place] [address]- 3217 Jul, [facility] [place] [facility] [address] [id number] [place] [address]- 9878 Jul, [facility] [place] [facility] [address] [id number] [place] [address]- 4353 Jul, [facility] [place] [facility] [address] [id number] [place] [address]- 4575 Jul, [facility] [place] [facility] [address] [id number] [place] [address]- 8547 Jul, [facility] [place] [facility] [address] [id number] [place] [address]- 9449 Jul, [facility] [place] [facility] [address] [id number] [place] [address]- 1486 Jul, [facility] [place] [facility] [address] [id number] [place] [address]- 7299 Jun, [facility] [place] [facility] [address] [id number] [place] [address]- 2686 Jun, [facility] [place] [facility] [address] [id number] [place] [address]- 6109 Jun, [facility] [place] [facility] [address] [id number] [place] [address]- 1753 Jun, [facility] [place] [facility] [address] [id number] [place] [address]- 0355 Jun, [facility] [place] [facility] [address] [id number] [place] [address]- 9611 Jun, [facility] [place] [facility] [address] [id number] [place] [address]- 5741 Jun, [facility] [place] [facility] [address] [id number] [place] [address]- 2717 Jun, [facility] [place] [facility] [address] [id number] [place] [address]- 1297 18 Jun, 2013 [facility] [place] [facility] [address] [id number] [place] [address]- 2789 18 Jun, 2013 [facility] [place] [facility] [address] [id number] [place] [address]- 9112 17 Jun, 2013 [facility] [place] [facility] [address] [id number] [place] [address]- 4286 17 Jun, 2013 [facility] [place] [facility] [address] [id number] [place] [address]- 6247 May, [facility] [place] [facility] [address] [id number] [place] [address]- 9795 May, [facility] [place] [facility] [address] [id number] [place] [address]- 7523 Apr, [facility] [place] [facility] [address] [id number] [place] [address]- 3814 Apr, [facility] [place] [facility] [address] [id number] [place] [address] Apr, [facility] [place] [facility] [address] [id number] [place] [address] Apr, [facility] [place] [facility] [address] [id number] [place] [address] Apr, [facility] [place] [facility] [address] [id number] [place] [address] 95[address] Apr, [facility] [place] [facility] [address] [id number] [place] [address] Apr, [facility] [place] [facility] [address] [id number] [place] [address] Apr, [facility] [place] [facility] [address] [id number] [place] [address] 14 Apr, 2013 [facility] [place] [facility] [address] [id number], [place] [address] Apr, [facility] [address] [id number] [place] [address] Apr, [facility] [place] [facility] [address] [id number] [place] [address] Mar, [facility] [place] [facility] [address] [id number] [place] [address] Mar, [facility] [place] [facility] [address] [id number] [place] [address] Mar, [facility] [place] [facility] [address] [id number] [place] [address] Mar, [facility] [place] [facility] [address] [id number] [place] [address] Feb, [facility] [place] [facility] [address] [id number] [place] [address] 275[address] Feb, [facility] [place] [facility] [address] [id number] [place] [address]- [address] Feb, [facility] [place] [facility] [address] [id number] [place] [address]- 8468 Feb, [facility] [place] [facility] [address] [id number] [place] [address]- [address] Feb, [facility] [place] [facility] [address] [id number], [place] [address] Feb, [facility] [place] [facility] [address] [id number], [place] [address] Feb, [facility] [place] [facility] [address] [id number], [place] [address] Feb, [facility] [place] [facility] [address] [id number], [place] [address] Feb, [facility] [place] [facility] [address] [id number] [place] [address]- [address] Feb, [facility] [place] [facility] [address] [id number] [place] [address]- 4799 02 Feb, 2013 [facility] [place] [facility] [address] [id number] [place] [address] 7746 Jan, 2012 [facility] [place] [facility] [address] [id number] [place] [address]- [address] Jan, [facility] [place] [facility] [address] [id number] [place] [address] Jan, 2012 [facility] [place] [facility] [address] [id number] [place] [address]- [address]197 Jan, 2012 [facility] [place] [facility] [address] [id number] [place] [address] Jan, [facility] [place] [facility] [address] [id number] [place] [address] Jan, [facility] [place] [facility] [address] [id number] [place] [address] Jan, [facility] [address] [id number] [place] [address]- [address]36 02 Jan, 2013 [facility] [place] [facility] [address] [id number] [place] [address] 30 Sep, 2012 [facility] [place] [facility] [address] [id number] [place] [address]- 8091 25 Sep, 2012 [facility] [place] [facility] [address] [id number] [place] [address]- 2545 18 Sep, 2012 [facility] [place] [facility] [address] [id number] [place] [address]- 2548 17 Sep, 2012 [facility] [place] [facility] [address] [id number] [place] [address] 2544 17 Sep, 2012 [facility] [place] [facility] [address] [id number] [place] [address]- 2548 16 Sep, 2012 [facility] [place] [facility] [address] [id number] [place] [address]- [address]44 13 Dec, 2012 [facility] [place] [facility] [address] [id number] [place] [address]- 9459 11 Dec, 2012 [facility] [place] [facility] [address] [id number] [place] [address]- 9942 05 Dec, 2012 [facility] [place] [facility] [address] [id number] [place] [address]- [address]71 04 Dec, 2012 [facility] [place] [facility] [address] [id number] [place] [address]- 2794 30 Nov, 2012 [facility] [place] [facility] [address] [id number] [place] [address]- [address]01 Nov, [facility] [place] [facility] [address] [id number] [place] [address] 8762 Nov, [facility] [place] [facility] [address] [id number] [place] [address]- 5241 Nov, [facility] [place] [facility] [address] [id number] [place] [address]- 0743 Nov, [facility] [place] [facility] [address] [id number] [place] [address]- 6860 Nov, [facility] [place] [facility] [address] [id number] [place] [address]- 2379 Nov, [facility] [place] [facility] [address] [id number] [place] [address] Oct, [facility] [place] [facility] [address] [id number] [place] [address] 8297 Oct, [facility] [place] [facility] [address] [id number] [place] [address]- 8478 Oct, [facility] [place] [facility] [address] [id number] [place] [address] 5993 Oct, [facility] [place] [facility] [address] [id number] [place] [address]- 6706 15 Oct, 2012 [facility] [place] [facility] [address] [id number] [place] [address] 9379 Oct, [facility] [address] [id number] [place] [address]- 8808 28 Sep, 2012 [facility] [place] [facility] [address] [id number] [place] [address]- 9484 Sep, [facility] [address] [id number] [place] [address]- 0981 Sep, [facility] [place] [facility] [address] [id number] [place] [address]- 0111 14 Sep, 2012 [facility] [address] [id number] [place] [address]- 1048 13 Sep, 2012 [facility] [address] [id number] [place] [address]- 4[address] Sep, [facility] [address] [id number] [place] [address]- 1094 Sep, [facility] [address] [id number] [place] [address]- 8065 Sep, [facility] [address] [id number] [place] [address]- 8027 Sep, [facility] [address] [id number] [place] [address]- 8987 August, [facility] [address] [id number] [place] [address]- 5721 August, [facility] [place] [facility] [address] [id number] [place] [address]- 8600 August, [facility] [place] [facility] [address] [id number] [place] [address]- 3824 August, [facility] [place] [facility] [address] [id number] [place] [address]- 0458 August, [facility] [place] [facility] [address] [id number] [place] [address]- 8963 August, [facility] [place] [facility] [address] [id number] [place] [address]- [address] August, [facility] [address] [id number] [place] [address]- 9386 August, [facility] [address] [id number] [place] [address] 1656 Jul, [facility] [address] [id number] [place] [address]- [address]236 Jul, [facility] [address] [place] [id number] Jul [facility] [address] [id number] [place] [address]- [address]373 Jun, [facility] [facility] [address] [id number] [place] [address] Jun, [facility] [address] [id number] [place] [address] Jun, [facility] [address] [id number] [place] [address] Jun, [facility] [address] [id number] [place] [address] Jun, [facility] [address] [facility] [id number] [place] [address] Jun, [facility] [address] [id number] [place] [address] May, [facility] [address] [id number] [place] [address] May, [facility] [address] [id number] [place] [address] May, [facility] [address] [id number] [place] [address] May, [facility] [address] [id number] [place] [address] May, [facility] [address] [id number] [place] [address] Apr, [facility] [place] [facility] [address] [id number] [place] [address] Apr, [facility] [place] [facility] [address] [id number] [place] [address] Apr, [facility] [place] [facility] [address] [id number] [place] [address] Apr, [facility] [address] [id number] [place] [address] Apr, [facility] [address] [id number] [place] [address] 27[address] Apr, [facility] [address] [id number] [place] [address] Mar, [facility] [place] [facility] [address] [id number] [place] [address] Mar, [facility] [place] [facility] [address] [id number] [place] [address] Mar, [facility] [place] [facility] [address] [id number] [place] [address] 139[address] Mar, [facility] [place] [facility] [address] [id number] [place] [address] Mar, [facility] [place] [facility] [address] [id number], [place] [address] 18 Mar, 2012 [facility] [place] [facility] [address] [id number] [place] [address] 18 Mar, 2012 [facility] [place] [facility] [address] [id number] [place] [address] Mar, [facility] [place] [facility] [address] [id number] [place] [address] 10 Mar, 2012 [facility] [place] [facility] [address] [id number] [place] [address]- 8067 05 Mar, 2012 [facility] [place] [facility] [address] [id number] [place] [address] 05 Mar, 2012 [facility] [place] [facility] [address] [id number] [place] [address] Feb, [facility] [place] [facility] [address] [id number] [place] [address] 9899 Feb, [facility] [place] [facility] [address] [id number] [place] [address]67 Feb, [facility] [place] [facility] [address] [id number] [place] [address] 8312 Feb, [facility] [place] [facility] [address] [id number] [place] [address] Feb, [facility] [place] [facility] [address] [id number] [place] [address]226 Feb, [facility] [place] [facility] [address] [id number] [place] [address] Feb, [facility] [place] [facility] [address] [id number] [place] [address] 27[address] Feb, [facility] [place] [facility] [address] [facility] [id number] [place] [address] Feb, [facility] [place] [facility] [address] [id number] [place] [address]609 Feb, [facility] [place] [facility] [address] [id number], [place] [address] Feb, [facility] [place] [facility] [address] [id number] [place] [address] Jan, [facility] [place] [facility] [address] [facility] [id number] [place] [address] 1495 Jan, [facility] [place] [facility] [address] [facility] [id number], [place] [address] Jan, [facility] [place] [facility] [address] [id number] [place] [address]- 7923 Jan, [facility] [place] [facility] [address] [id number] [place] [address]- 63[address] Jan, [facility] [place] [facility] [address] [id number] [place] [address] 8186 Jan, [facility] [place] [facility] [address] [id number] [place] [address]758 Jan, [facility] [place] [facility] [address] [id number] [place] [address] 24 Dec, 2011 [facility] [place] [facility] [address] [id number] [place] [address]481 17 Dec, 2011 [facility] [place] [facility] [address] [id number] [place] [address] 8221 13 Dec, 2011 [facility] [place] [facility] [address] [id number] [place] [address]- 7084 12 Dec, 2011 [facility] [place] [facility] [address] [id number] [place] [address]- 2971 Nov, [facility] [place] [facility] [address] [id number] [place] [address]- [address]992 Nov, [facility] [place] [facility] [address] [id number] [place] [address]- 7702 17 Nov, 2011 [facility] [place] [facility] [address] [id number] [place] [address]- 3184 15 Nov, 2011 [facility] [place] [facility] [address] [id number] [place] [address]- [address] 14 Nov, 2011 [facility] [place] [facility] [address] [id number] [place] [address]- 1366 13 Nov, 2011 [facility] [place] [facility] [address] [id number] [place] [address]- 4721 10 Nov, 2011 [facility] [place] [facility] [address] [id number] [place] [address]- 0408 Nov, [facility] [place] [facility] [address] [id number] [place] [address]- 0276 Nov, [facility] [place] [facility] [address] [id number] [place] [address]- [address] Nov, [facility] [place] [facility] [address] [id number] [place] [address]- 5901 Nov, [facility] [place] [facility] [address] [id number] [place] [address]- 5877 Nov, [facility] [place] [facility] [address] [id number] [place] [address]- 7289 Nov, [facility] [place] [facility] [address] [id number] [place] [address]- 5838 Oct, [facility] [place] [facility] [address] [id number] [place] [address]- 5121 Oct, [facility] [place] [facility] [address] [id number] [place] [address]- 9982 Oct, [facility] [place] [facility] [address] [id number] [place] [address]- 0355 Oct, [facility] [place] [facility] [address] [id number] [place] [address]- 8801 Oct, [facility] [place] [facility] [address] [id number] [place] [address]- 8930 Oct, [facility] [place] [facility] [address] [id number] [place] [address]- 5415 Oct, [facility] [place] [facility] [address] [id number] [place] [address]- 4918 Oct, [facility] [place] [facility] [address] [id number] [place] [address]- 7966 Oct, [facility] [place] [facility] [address] [id number] [place] [address]- 9618 Sep, [facility] [place] [facility] [address] [id number] [place] [address]- 4115 Sep, [facility] [address] [id number] [place] [address]- 8884 Sep, [facility] [place] [facility] [address] [id number] [place] [address]- 3586 Sep, [facility] [address] [id number] [place] [address]- 9769 Sep, [facility] [place] [facility] [address] [id number] [place] [address]- 1219 Sep, [facility] [address] [id number] [place] [address]- 8519 Sep, [facility] [address] [id number] [place] [address]- 6960 Sep, [facility] [address] [id number] [place] [address]- [address]115 August, [facility] [address] [id number] [place] [address]- 5299 August, [facility] [address] [id number] [place] [address]- 9440 August, [facility] [address] [id number] [place] [address]- 2852 August, [facility] [place] [facility] [address] [id number] [place] [address]- 0020 August, [facility] [address] [id number] [place] [address]- 2352 August, [facility] [place] [facility] [address] [id number] [place] [address]- 0813 August, [facility] [place] [facility] [address] [id number] [place] [address]- 1607 August, [facility] [address] [id number] [place] [address]- 1740 August, [facility] [address] [facility] [id number] [place] [address]- 6[address] August, [facility] [address] [facility] [id number], [place] [address]- [address] August, [facility] [address] [facility] [id number], [place] [address]- 3916 August, [facility] [address] [facility] [id number], [place] [address]- [address] Oct, IMMUNIZATIONS No Known Immunizations SOCIAL HISTORY Never Assessed REASON FOR VISIT Refill Request PLAN OF CARE VITAL SIGNS MEDICATIONS Medication Instructions Dosage Frequency Start Date End Date Duration Status Lyrica 150 MG Orally 2 times a day 2 capsules 12h 90 days Active RESULTS No Results PROCEDURES [...] Surgical History bladder surgery Hospitalization History [facility] for right groin pain 05/2011 Hospitalization History [facility] for wound on buttocks 08/2012 Hospitalization History [facility], hypoxia secondary to pneumonia 12/02-12/09 Hospitalization History Pneumonia, elevated CO2 on Bipap was in ICU 08/2013 Hospitalization History Hypoxia, Exacerbation COPD, Chest pain 09/05/15 Hospitalization History [place] ideations-[place] 12/28 Hospitalization History hypoxia--[facility] 02/13/2016 Hospitalization History shortness of breath at june 2016 Hospitalization History Shortness of breath at august 2016 Hospitalization History SOB, chest pain at 12/2016
--- OUTSIDE RECORDS SUMMARY | 2017-11-24 19:03 | XMS REPORT ---
Author Author JIMENAZAINAB RIVERA Organization [facility] Address [address] [place] [address] Care Team Providers Care Derrickman Helper Name Role Phone KELSEY HESSY Unavailable PROBLEMS Type Condition ICD9-CM Code [id number] Code Onset Dates Condition Status SNOMED Code Problem Primary insomnia F51.01 Active 388012573 Problem Type 2 diabetes mellitus with hyperglycemia E11.65 Active 61717751 Problem Major depressive disorder, recurrent, unspecified F33.9 Active 061514551 Problem Acute and chronic respiratory failure with hypoxia J96.21 Active Problem Microalbuminuria R80.9 Active 732228694 Problem Dysphagia, unspecified type R13.10 Active 80374345 Problem 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 Active 594719388765 Problem Morbid obesity with alveolar hypoventilation E66.2 Active 389843691 Problem Chronic tension-type headache, intractable G44.221 Active 368538142 Problem Type 2 diabetes mellitus with diabetic polyneuropathy E11.42 Active 01850591 Problem MRSA (methicillin resistant Staphylococcus aureus) A49.02 Active 530600045 Problem Recurrent cellulitis L03.90 Active 019815947 Problem Chronic diarrhea K52.9 Active 247727415 Problem Chronic nausea R11.0 Active 811899128 Problem Gastroesophageal reflux disease, esophagitis presence not specified K21.9 Active 985805570 Problem Tinnitus of both ears H93.13 Active 3150628558287 Problem Essential hypertension I10 Active 70861021 Problem Anxiety F41.9 Active 02024339 Problem Lymphedema I89.0 Active 508169248 Problem Hypertriglyceridemia E78.1 Active 237951320 Problem Meralgia paresthetica, unspecified laterality G57.10 Active 29306444 Problem Obstructive sleep apnea G47.33 Active 44367355 Problem Low back pain M54.5 Active 050570100 ALLERGIES No Information SOCIAL HISTORY Never Assessed PLAN OF CARE VITAL SIGNS MEDICATIONS Medication Instructions Dosage Frequency Start Date End Date Duration Status Test strips Test Strips test blood sugar 6h 16 Oct, 2014 Active RESULTS No Results PROCEDURES No Known [...] Hospitalization History suicidal ideations-[place] 12/28 Hospitalization History hypoxia--[facility] 02/13/2016 Hospitalization History shortness of breath at june 2016 Hospitalization History Shortness of breath at august 2016
--- OUTSIDE RECORDS SUMMARY | 2017-11-24 19:05 | XMS REPORT ---
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 [address], [place] [address]- 1509 09 Sep, 2014 Episodic mood disorder 296.90 [facility] [address], [place] [address]- 5978 08 Sep, 2014 [facility] [address], [place] [address]- 9239 08 Sep, 2014 [facility] [address], [place] [address]- 3780 Sep, Diabetes mellitus without mention of complication, type II or unspecified type, not stated as uncontrolled 250.00 and Other chronic pain 338.29 [facility] [address] 3395 Sep, Episodic mood disorder 296.90 [facility] [address], [place] [address]- 3641 Sep, [facility] [id number] [place] [address] 628145- 0863 Sep, Episodic mood disorder 296.90 [facility] [id number] [place] [address] 20225- 1701 Sep, [facility] [id number], [place] [address]- 9139 August, [facility] [id number] [place] [address] 41897- 0993 August, [facility] [address], [place] [address]- 7661 August, Episodic mood disorder 296.90 [facility] [address], [place] [address]- 0825 August, [facility] [address], [place] [address]- 9918 August, Unspecified episodic mood disorder 296.90 [facility] [address], [place] [address]- 5754 August, Vomiting 787.03 [facility] [address], [place] [address]- 3965 August, [facility] [id number], [place] [address]- 9341 August, [facility] [address], [place] [address]- 8177 August, [facility] [id number] [place] [address]- 4672 August, [facility] [place] [facility] [address] [id number] [place] [address]- 5662 August, [facility] [place] [facility] [address] [id number] [place] [address]- 5743 28 Jul, 2014 [facility] [place] [facility] [address] [id number] [place] [address]- 8403 14 Jul, 2014 [facility] [place] [facility] [address] [id number] [place] [address]- 8604 Jul, [facility] [place] [facility] [address] [id number] [place] [address]- 4332 30 Jun, 2014 [facility] [place] [facility] [address] [id number] [place] [address]- 3664 Jun, [facility] [place] [facility] [address] [id number] [place] [address]- 3448 Jun, [facility] [place] [facility] [address] [id number] [place] [address]- 7034 Jun, [facility] [place] [facility] [address] [id number] [place] [address]- 4326 Jun, [facility] [place] [facility] [address] [id number] [place] [address]- 6871 Jun, [facility] [place] [facility] [address] [id number] [place] [address]- 6249 30 Jun, 2014 [facility] [place] [facility] [address] [id number] [place] [address]- 3388 30 Jun, 2014 [facility] [place] [facility] [address] [id number] [place] [address]- 0315 Jun, [facility] [place] [facility] [address] [id number] [place] [address]- 6142 Jun, [facility] [place] [facility] [address] [id number] [place] [address]- 5307 Jun, [facility] [place] [facility] [address] [id number] [place] [address]- 4314 Jun, [facility] [place] [facility] [address] [id number] [place] [address]- 7542 Jun, [facility] [place] [facility] [address] [id number] [place] [address]- 8850 Jun, [facility] [place] [facility] [address] [id number] [place] [address]- 3720 Jun, [facility] [place] [facility] [address] [id number] [place] [address]- 3363 Jun, [facility] [place] [facility] [address] [id number] [place] [address]- 8095 Jun, [facility] [place] [facility] [address] [id number] [place] [address]- 4536 Jun, [facility] [place] [facility] [address] [id number] [place] [address]- 2554 Jun, [facility] [place] [facility] [address] [id number] [place] [address]- 1525 Jun, [facility] [place] [facility] [address] [id number] [place] [address]- 3542 Jun, [facility] [place] [facility] [address] [id number] [place] [address]- 1971 Jun, [facility] [place] [facility] [address] [id number] [place] [address]- 8541 Jun, [facility] [place] [facility] [address] [id number] [place] [address]- 8641 Jun, [facility] [place] [facility] [address] [id number] [place] [address]- 7774 Jun, [facility] [place] [facility] [address] [id number] [place] [address]- 5722 19 Jun, 2014 [facility] [place] [facility] [address] [id number] [place] [address]- 2969 19 Jun, 2014 [facility] [place] [facility] [address] [id number] [place] [address]- 4015 18 Jun, 2014 [facility] [place] [facility] [address] [id number] [place] [address]- 8000 18 Jun, 2014 [facility] [place] [facility] [address] [id number] [place] [address]- 9426 17 Jun, 2014 [facility] [place] [facility] [address] [id number] [place] [address]- 6766 17 Jun, 2014 [facility] [place] [facility] [address] [id number] [place] [address]- 1710 16 Jun, 2014 [facility] [place] [facility] [address] [id number] [place] [address]- 7879 16 Jun, 2014 [facility] [place] [facility] [address] [id number] [place] [address]- 8726 16 Jun, 2014 [facility] [place] [facility] [address] [id number] [place] [address]- 0056 16 Jun, 2014 [facility] [place] [facility] [address] [id number] [place] [address]- 6591 16 Jun, 2014 [facility] [place] [facility] [address] [id number] [place] [address]- 9545 16 Jun, 2014 [facility] [place] [facility] [address] [id number] [place] [address]- 7446 13 Jun, 2014 [facility] [place] [facility] [address] [id number] [place] [address]- 6678 13 Jun, 2014 [facility] [place] [facility] [address] [id number] [place] [address]- 9378 12 Jun, 2014 [facility] [place] [facility] [address] [id number] [place] [address]- 3538 12 Jun, 2014 [facility] [place] [facility] [address] [id number] [place] [address]- 8112 09 Jun, 2014 [facility] [place] [facility] [address] [id number] [place] [address]- 5366 Jun, 2014 [facility] [place] [facility] [address] [id number] [place] [address]- 7837 Jun, 2014 [facility] [place] [facility] [address] [id number] [place] [address]- 8856 Jun, 2014 [facility] [place] [facility] [address] [id number] [place] [address]- 8783 Jun, 2014 [facility] [place] [facility] [address] [id number] [place] [address]- 5702 Jun, 2014 [facility] [place] [facility] [address] [id number] [place] [address]- 7646 Jun, 2014 [facility] [place] [facility] [address] [id number] [place] [address]- 0650 Jun, 2014 [facility] [place] [facility] [address] [id number] [place] [address]- 5567 Jun, 2014 [facility] [place] [facility] [address] [id number] [place] [address]- 1504 Jun, [facility] [place] [facility] [address] [id number] [place] [address]- 8963 Jun, [facility] [place] [facility] [address] [id number] [place] [address]- 2742 Jun, [facility] [place] [facility] [address] [id number] [place] [address]- 8866 Jun, [facility] [place] [facility] [address] [id number] [place] [address]- 5272 Jun, [facility] [place] [facility] [address] [id number] [place] [address]- 0294 Jun, [facility] [place] [facility] [address] [id number] [place] [address]- 5306 Jun, [facility] [place] [facility] [address] [id number] [id number] 7119 May, [facility] [place] [facility] [address] [facility] [id number] [place] [address]- 9682 May, 2014 [facility] [place] [facility] [address] [facility] [id number] [place] [address]- 7416 May, 2014 [facility] [place] [facility] [address] [facility] [id number] [place] [address]- 8398 May, 2014 [facility] [place] [facility] [address] [facility] [id number] [place] [address]- 3916 May, 2014 [facility] [place] [facility] [address] [facility] [id number] [place] [address]- 5654 May, 2014 [facility] [place] [facility] [address] [facility] [id number] [place] [address]- 9895 May, 2014 [facility] [place] [facility] [id number] [place] [address]- 5482 20 May, 2014 [facility] [place] [facility] [address] [facility] [id number] [place] [address]- 1073 May, 2014 [facility] [place] [facility] [address] [facility] [id number] [place] [address] May, 2014 [facility] [place] [facility] [address] [facility] [id number] [place] [address]32 18 May, 2014 [facility] [place] [facility] [address] [facility] [id number] [place] [address] 18 May, 2014 [facility] [place] [facility] [address] [facility] [id number], [place] [address] 13 May, 2014 [facility] [place] [facility] [address] [facility] [id number] [place] [address]107 13 May, 2014 [facility] [place] [facility] [address] [facility] [id number], [place] [address] 11 May, 2014 [facility] [place] [facility] [address] [facility] [id number], [place] [address] May, 2014 [facility] [place] [facility] [address] [id number] [place] [address] May, 2014 [facility] [place] [facility] [address] [id number] [place] [address] May, 2014 [facility] [place] [facility] [address] [id number] [place] [address] 8349 May, 2014 [facility] [place] [facility] [address] [id number] [place] [address]- 7542 May, 2014 [facility] [place] [facility] [address] [id number] [place] [address]597 May, 2014 [facility] [place] [facility] [address] [id number] [place] [address]- 7095 May, 2014 [facility] [place] [facility] [address] [id number] [place] [address]- 4675 May, 2014 [facility] [place] [facility] [address] [id number] [place] [address]- 9277 May, 2014 [facility] [place] [facility] [address] [id number] [place] [address]- 0710 May, 2014 [facility] [place] [facility] [address] [id number] [place] [address]- [address]457 May, [facility] [place] [facility] [address] [id number] [place] [address] 8659 May, [facility] [place] [facility] [address] [id number] [place] [address] 2594 Apr, [facility] [place] [facility] [address] [id number] [place] [address]- 7062 Apr, [facility] [place] [facility] [address] [id number] [place] [address]- [address]337 Apr, [facility] [place] [facility] [address] [id number] [place] [address]- 4[address] Apr, [facility] [place] [facility] [address] [id number] [place] [address]- 3219 Apr, [facility] [address] [id number] [place] [address] 9681 Apr, [facility] [place] [facility] [address] [id number] [place] [address]- 0661 Apr, [facility] [address] [id number] [place] [address] Apr, [facility] [place] [facility] [address] [id number] [place] [address] 4037 Apr, [facility] [address] [id number] [place] [address]- 4196 Apr, [facility] [address] [id number] [place] [address] 9658 Apr, [facility] [address] [id number] [place] [address]- [address]862 Apr, [facility] [address] [id number] [place] [address] 9811 Apr, [facility] [place] [facility] [address] [id number] [place] [address]- 3669 Apr, [facility] [address] [id number] [place] [address] 0379 Apr, [facility] [place] [facility] [address] [id number] [place] [address] 9720 Apr, [facility] [place] [facility] [address] [id number] [place] [address]- 2877 Apr, [facility] [place] [facility] [address] [id number] [place] [address] 8043 Apr, [facility] [place] [facility] [address] [id number] [place] [address]37 Apr, [facility] [place] [facility] [address] [id number] [place] [address] Apr, [facility] [place] [facility] [address] [id number] [place] [address]- 1695 Mar, [facility] [place] [facility] [address] [id number] [place] [address]- 8199 Mar, [facility] [place] [facility] [address] [id number] [place] [address]- 2607 Mar, [facility] [place] [facility] [address] [id number] [place] [address]- 0571 Mar, [facility] [place] [facility] [address] [id number] [place] [address]- 3567 Mar, [facility] [place] [facility] [address] [id number] [place] [address]- 1828 Mar, [facility] [place] [facility] [address] [id number] [place] [address]- 2216 Mar, [facility] [place] [facility] [address] [id number] [place] [address]- [address]139 Mar, [facility] [place] [facility] [address] [id number] [place] [address]- [address]641 Mar, [facility] [place] [facility] [address] [id number] [place] [address]- 1535 Mar, [facility] [place] [facility] [address] [id number] [place] [address]- 2010 Mar, [facility] [place] [facility] [address] [id number] [place] [address] 15 Mar, 2014 [facility] [place] [facility] [address] [id number] [place] [address] 8849 Mar, [facility] [place] [facility] [address] [id number] [place] [address] 6111 Mar, [facility] [place] [facility] [address] [id number] [place] [address] Mar, [facility] [place] [facility] [address] [id number], [place] [address] 269[address] Mar, [facility] [place] [facility] [address] [id number] [place] [address] 3558 Feb, [facility] [place] [facility] [address] [id number] [place] [address] 0050 Feb, [facility] [place] [facility] [address] [facility] [id number] [place] [address]- 5284 Feb, [facility] [place] [facility] [address] [id number] [place] [address]- 7409 Feb, [facility] [place] [facility] [address] [id number] [place] [address]- 6300 Feb, [facility] [place] [facility] [address] [id number] [place] [address]- 1034 Feb, [facility] [place] [facility] [address] [id number], [place] [address] 49[address] Feb, [facility] [place] [facility] [address] [id number] [place] [address]- 3676 Feb, [facility] [place] [facility] [address] [id number] [place] [address]- 2810 Feb, [facility] [place] [facility] [address] [facility] [id number] [place] [address]- 0521 Feb, [facility] [place] [facility] [address] [id number], [place] [address] 4[address] Feb, [facility] [place] [facility] [address] [id number], [place] [address] 5[address] 17 Feb, 2014 [facility] [place] [facility] [address] [id number], [place] [address]- 6560 17 Feb, 2014 [facility] [place] [facility] [address] [id number], [place] [address]- 9225 14 Feb, 2014 [facility] [place] [facility] [address] [facility] [id number], [place] [address]- 4920 14 Feb, 2014 [facility] [place] [facility] [address] [id number] [place] [address] 8508 14 Feb, 2014 [facility] [place] [facility] [address] [id number] [place] [address]- 6372 14 Feb, 2014 [facility] [place] [facility] [address] [id number] [place] [address]- 2442 Feb, [facility] [place] [facility] [address] [id number] [place] [address]- 1559 Feb, [facility] [place] [facility] [address] [id number] [place] [address]- 1456 Feb, [facility] [place] [facility] [address] [id number] [place] [address]- 7119 Feb, [facility] [place] [facility] [address] [id number] [place] [address]- 0518 Jan, [facility] [place] [facility] [address] [id number] [place] [address]- 4393 Jan, [facility] [place] [facility] [address] [id number] [place] [address]- 4927 Jan, [facility] [place] [facility] [address] [id number] [place] [address]- 2742 Jan, [facility] [place] [facility] [address] [id number] [place] [address]- 2476 Jan, [facility] [place] [facility] [address] [id number] [place] [address]- 7694 Jan, [facility] [place] [facility] [address] [id number] [place] [address]- 1866 Jan, [facility] [place] [facility] [address] [id number] [place] [address]- 1890 Jan, [facility] [place] [facility] [address] [id number] [place] [address]- 5790 Jan, [facility] [place] [facility] [address] [id number] [place] [address]- 3478 Jan, 2013 [facility] [place] [facility] [address] [id number] [place] [address]- 1886 17 Jan, 2013 [facility] [place] [facility] [address] [id number] [place] [address]- 7382 17 Jan, 2013 [facility] [place] [facility] [address] [id number] [place] [address]- 8087 17 Jan, 2013 [facility] [place] [facility] [address] [id number] [place] [address]- 1436 17 Jan, 2013 [facility] [place] [facility] [address] [id number] [place] [address]- 4482 15 Jan, 2014 [facility] [place] [facility] [address] [id number] [place] [address]- 4255 15 Jan, 2013 [facility] [place] [facility] [address] [id number] [place] [address]- 4033 14 Jan, 2014 [facility] [place] [facility] [address] [id number] [place] [address]- 5784 14 Jan, 2014 [facility] [place] [facility] [address] [id number] [place] [address]- 0193 13 Jan, 2014 [facility] [place] [facility] [address] [id number] [place] [address]- 7080 13 Jan, 2014 [facility] [place] [facility] [address] [id number], [place] [address]- 7301 13 Jan, 2013 [facility] [place] [facility] [address] [id number], [place] [address]- 5155 13 Jan, 2013 [facility] [place] [facility] [address] [id number] [place] [address]- 6204 10 Jan, 2013 [facility] [place] [facility] [address] [id number], [place] [address]- 0786 02 Jan, 2014 [facility] [place] [facility] [address] [id number], [place] [address]- 0[address] 02 Jan, 2013 [facility] [place] [facility] [address] [id number] [place] [address] 2546 25 Sep, 2013 [facility] [place] [facility] [address] [id number] [place] [address] 2546 25 Sep, 2013 [facility] [place] [facility] [address] [id number] [place] [address] 2546 23 Sep, 2013 [facility] [place] [facility] [address] [id number] [place] [address] 2546 23 Sep, 2013 [facility] [place] [facility] [address] [id number] [place] [address] 2546 19 Sep, 2013 [facility] [place] [facility] [address] [id number] [place] [address] 2541 19 Sep, 2013 [facility] [place] [facility] [address] [id number] [place] [address] 2543 17 Sep, 2013 [facility] [place] [facility] [address] [id number] [place] [address]- 4633 17 Sep, 2013 [facility] [place] [facility] [address] [id number] [place] [address] 254 09 Sep, 2013 [facility] [place] [facility] [address] [id number] [place] [address] 2542 09 Sep, 2013 [facility] [place] [facility] [address] [id number] [place] [address] 2544 08 Sep, 2013 [facility] [place] [facility] [address] [id number] [place] [address] 2546 08 Sep, 2013 [facility] [place] [facility] [address] [id number] [place] [address] 2541 04 Sep, 2013 [facility] [place] [facility] [address] [id number] [place] [address] 2546 04 Sep, 2013 [facility] [place] [facility] [address] [id number] [place] [address]- 2546 02 Sep, 2013 [facility] [place] [facility] [address] [id number] [place] [address] 2541 Dec, [facility] [place] [facility] [address] [id number] [place] [address]- 2747 Dec, [facility] [place] [facility] [address] [id number] [place] [address]- 3337 Dec, [facility] [place] [facility] [address] [id number] [place] [address]- 8262 Nov, [facility] [place] [facility] [address] [id number] [place] [address]- 0177 Nov, [facility] [place] [facility] [address] [id number] [place] [address]- 0373 Nov, [facility] [place] [facility] [address] [id number] [place] [address]- 8842 Nov, [facility] [place] [facility] [address] [id number] [place] [address]- 4496 Nov, [facility] [place] [facility] [address] [id number] [place] [address]- 5670 Nov, [facility] [place] [facility] [address] [id number] [place] [address]- 8827 Nov, [facility] [place] [facility] [address] [id number] [place] [address]- 1541 Nov, [facility] [place] [facility] [address] [id number] [place] [address]- 9840 Nov, [facility] [place] [facility] [address] [id number] [place] [address]- 1672 Nov, [facility] [place] [facility] [address] [id number] [place] [address]- 0780 Nov, [facility] [place] [facility] [address] [id number] [place] [address]- 2520 Nov, [facility] [place] [facility] [address] [id number] [place] [address]- 3996 Oct, [facility] [place] [facility] [address] [id number] [place] [address]- 6635 Oct, [facility] [place] [facility] [address] [id number] [place] [address]- 1858 Oct, [facility] [place] [facility] [address] [id number] [place] [address]- 9457 Oct, [facility] [place] [facility] [address] [id number] [place] [address]- 3194 Oct, [facility] [place] [facility] [address] [id number] [place] [address]- 8100 Oct, [facility] [place] [facility] [address] [id number] [place] [address]- 3160 Oct, [facility] [place] [facility] [address] [id number] [place] [address]- 5305 Oct, [facility] [place] [facility] [address] [id number] [place] [address]- 8471 Oct, [facility] [place] [facility] [address] [id number] [place] [address]- 9399 Oct, [facility] [place] [facility] [address] [id number] [place] [address]- 2581 Oct, [facility] [place] [facility] [address] [id number] [place] [address]- 9875 Oct, [facility] [place] [facility] [address] [id number] [place] [address]- 0653 Oct, [facility] [place] [facility] [address] [id number] [place] [address]- 1156 Oct, [facility] [place] [facility] [address] [id number] [place] [address]- 9039 Oct, [facility] [place] [facility] [address] [id number] [place] [address]- 2295 Oct, [facility] [place] [facility] [address] [id number] [place] [address]- 0251 Oct, [facility] [place] [facility] [address] [id number] [place] [address]- 5955 27 Sep, 2013 [facility] [place] [facility] [address] [id number] [place] [address]- 9776 27 Sep, 2013 [facility] [place] [facility] [address] [id number] [place] [address]- 3802 20 Sep, 2013 [facility] [place] [facility] [address] [id number] [place] [address]- 2779 20 Sep, 2013 [facility] [place] [facility] [address] [id number] [place] [address]- 3173 18 Sep, 2013 [facility] [place] [facility] [address] [id number] [place] [address]- 4800 18 Sep, 2013 [facility] [place] [facility] [address] [id number] [place] [address]- 2456 17 Sep, 2013 [facility] [place] [facility] [address] [id number] [place] [address]- 0772 17 Sep, 2013 [facility] [place] [facility] [address] [id number] [place] [address]- 8555 Sep, [facility] [place] [facility] [address] [id number] [place] [address]- 0107 Sep, [facility] [place] [facility] [address] [id number] [place] [address]- 0532 Sep, [facility] [place] [facility] [address] [id number] [place] [address]- 0940 Sep, [facility] [place] [facility] [address] [id number] [place] [address]- 7847 Sep, [facility] [place] [facility] [address] [id number] [place] [address]- 9175 Sep, [facility] [place] [facility] [address] [id number] [place] [address]- 7872 09 Sep, 2013 [facility] [place] [facility] [address] [id number] [place] [address]- 2612 Sep, [facility] [place] [facility] [address] [id number] [place] [address]- 2281 Sep, [facility] [place] [facility] [address] [id number] [place] [address]- 7863 Sep, [facility] [place] [facility] [address] [id number] [place] [address]- 8945 Sep, [facility] [place] [facility] [address] [id number] [place] [address]- 9899 Sep, [facility] [place] [facility] [address] [id number] [place] [address]- 5329 Sep, [facility] [place] [facility] [address] [id number] [place] [address]- 4961 Sep, [facility] [place] [facility] [address] [id number] [place] [address]- 5427 August, [facility] [place] [facility] [address] [id number] [place] [address]- 9268 August, [facility] [place] [facility] [address] [id number] [place] [address]- 6063 August, [facility] [place] [facility] [address] [id number] [place] [address]- 7832 August, [facility] [place] [facility] [address] [id number] [place] [address]- 1113 August, [facility] [place] [facility] [address] [id number] [place] [address]- 8994 August, [facility] [place] [facility] [address] [id number] [place] [address]- 0809 August, [facility] [place] [facility] [address] [id number] [place] [address]- 9757 August, [facility] [place] [facility] [address] [id number] [place] [address]- 6806 August, [facility] [place] [facility] [address] [id number] [place] [address]- 6139 August, [facility] [place] [facility] [address] [id number] [place] [address]- 2909 August, [facility] [place] [facility] [address] [id number] [place] [address]- 6637 Jul, [facility] [place] [facility] [address] [id number] [place] [address]- 8602 Jul, [facility] [place] [facility] [address] [id number] [place] [address]- 0096 Jul, [facility] [place] [facility] [address] [id number] [place] [address]- 0808 Jul, [facility] [place] [facility] [address] [id number] [place] [address]- 2083 Jul, [facility] [place] [facility] [address] [id number] [place] [address]- 9767 Jul, [facility] [place] [facility] [address] [id number] [place] [address]- 2475 Jul, [facility] [place] [facility] [address] [id number] [place] [address]- 0163 Jul, [facility] [place] [facility] [address] [id number] [place] [address]- 3069 Jul, [facility] [place] [facility] [address] [id number] [place] [address]- 4846 Jul, [facility] [place] [facility] [address] [id number] [place] [address]- 7334 16 Jul, 2013 [facility] [place] [facility] [address] [id number] [place] [address]- 8478 Jul, [facility] [place] [facility] [address] [id number] [place] [address]- 3442 Jul, [facility] [place] [facility] [address] [id number] [place] [address]- 2796 Jul, [facility] [place] [facility] [address] [id number] [place] [address]- 8050 Jul, [facility] [place] [facility] [address] [id number] [place] [address]- 6314 Jul, [facility] [place] [facility] [address] [id number] [place] [address]- 7536 Jul, [facility] [place] [facility] [address] [id number] [place] [address]- 5337 Jul, [facility] [place] [facility] [address] [id number] [place] [address]- 2219 Jul, [facility] [place] [facility] [address] [id number] [place] [address]- 4999 Jul, [facility] [place] [facility] [address] [id number] [place] [address]- 9584 Jul, [facility] [place] [facility] [address] [id number] [place] [address]- 1520 Jul, [facility] [place] [facility] [address] [id number] [place] [address]- 1577 Jul, [facility] [place] [facility] [address] [id number] [place] [address]- 8302 Jun, [facility] [place] [facility] [address] [id number] [place] [address]- 7683 Jun, [facility] [place] [facility] [address] [id number] [place] [address]- 9407 Jun, [facility] [place] [facility] [address] [id number] [place] [address]- 4162 Jun, [facility] [place] [facility] [address] [id number] [place] [address]- 7118 Jun, [facility] [place] [facility] [address] [id number] [place] [address]- 4493 Jun, [facility] [place] [facility] [address] [id number] [place] [address]- 8097 Jun, [facility] [place] [facility] [address] [id number] [place] [address]- 1182 Jun, [facility] [place] [facility] [address] [id number] [place] [address]- 4132 Jun, [facility] [place] [facility] [address] [id number] [place] [address]- 8714 Jun, [facility] [place] [facility] [address] [id number] [place] [address]- 0865 Jun, [facility] [place] [facility] [address] [id number] [place] [address]- 7535 Jun, [facility] [place] [facility] [address] [id number] [place] [address]- 2322 May, [facility] [place] [facility] [address] [id number] [place] [address]- 3167 May, [facility] [place] [facility] [address] [id number] [place] [address]- 8761 Apr, [facility] [place] [facility] [address] [id number] [place] [address]- 9480 Apr, [facility] [place] [facility] [address] [id number] [place] [address]- 9830 Apr, [facility] [place] [facility] [address] [id number] [place] [address]- 4744 Apr, [facility] [place] [facility] [address] [id number] [place] [address]- 4711 Apr, [facility] [place] [facility] [address] [id number] [place] [address]- 8067 Apr, [facility] [place] [facility] [address] [id number] [place] [address]- 1342 Apr, [facility] [place] [facility] [address] [id number] [place] [address]- 3451 Apr, [facility] [place] [facility] [address] [id number] [place] [address]- 9004 14 Apr, 2013 [facility] [address] [id number] [place] [address]- 2687 Apr, [facility] [address] [id number] [place] [address]- 4493 Apr, [facility] [address] [id number] [place] [address]- 8975 16 Mar, 2013 [facility] [address] [id number] [place] [address]- 7288 Mar, [facility] [address] [id number] [place] [address]- 7493 Mar, [facility] [address] [id number] [place] [address]- 6431 Mar, [facility] [address] [id number] [place] [address]- 7110 Feb, [facility] [address] [id number] [place] [address]- 5586 Feb, [facility] [address] [id number] [place] [address]- 4235 Feb, [facility] [address] [id number] [place] [address]- 1954 Feb, [facility] [address] [id number] [place] [address]- 9181 Feb, [facility] [address] [id number] [place] [address]- 7969 Feb, [facility] [address] [id number] [place] [address]- 0661 Feb, [facility] [address] [id number] [place] [address]- 1954 Feb, [facility] [address] [id number] [place] [address]- 9107 Feb, [facility] [place] [facility] [address] [id number] [place] [address]- 9368 Feb, [facility] [place] [facility] [address] [id number] [place] [address]- 1890 Feb, [facility] [place] [facility] [address] [id number] [place] [address]- 1387 Jan, [facility] [place] [facility] [address] [id number] [place] [address]- 6393 Jan, [facility] [place] [facility] [address] [id number] [place] [address] Jan, [facility] [place] [facility] [address] [id number] [place] [address] Jan, [facility] [place] [facility] [address] [id number] [place] [address] Jan, [facility] [place] [facility] [address] [id number] [place] [address] Jan, [facility] [place] [facility] [address] [id number] [place] [address] Jan, [facility] [place] [facility] [address] [id number], [place] [address] Jan, [facility] [place] [facility] [address] [id number], [place] [address] 30 Dec, 2012 [facility] [place] [facility] [address] [id number], [place] [address] 25 Dec, 2012 [facility] [place] [facility] [address] [id number], [place] [address] 18 Sep2012 [facility] [place] [facility] [address] [id number], [place] [address] 17 Dec, 2012 [facility] [place] [facility] [address] [id number] [address] 17 Dec, 2012 [facility] [place] [facility] [address] [id number], [place] [address] 16 Dec, 2012 [facility] [place] [facility] [address] [id number] [place] [address]30 13 Dec, 2012 [facility] [place] [facility] [address] [id number] [place] [address] 11 Dec, 2012 [facility] [place] [facility] [address] [id number] [place] [address] 05 Dec, 2012 [facility] [place] [facility] [address] [id number] [place] [address]- [address]990 04 Dec, 2012 [facility] [place] [facility] [address] [id number] [place] [address] 30 Nov, 2012 [facility] [place] [facility] [address] [id number] [place] [address] Nov, [facility] [place] [facility] [address] [id number] [place] [address] Nov, [facility] [place] [facility] [address] [id number] [place] [address] Nov, [facility] [place] [facility] [address] [id number] [place] [address] Nov, [facility] [place] [facility] [address] [id number] [place] [address] Nov, [facility] [place] [facility] [address] [id number] [place] [address] Nov, [facility] [place] [facility] [address] [id number] [place] [address]163 Oct, [facility] [place] [facility] [address] [id number] [place] [address] Oct, [facility] [place] [facility] [address] [id number] [place] [address] 3477 Oct, [facility] [place] [facility] [address] [id number] [place] [address] Oct, [facility] [place] [facility] [address] [id number] [place] [address] 5836 15 Oct, 2012 [facility] [address] [id number] [place] [address] 2012 [facility] [place] [facility] [address] [id number] [place] [address] 28 Sep, 2012 [facility] [place] [facility] [address] [id number] [place] [address] 5[address] Sep, [facility] [place] [facility] [address] [id number] [place] [address] Sep, [facility] [address] [id number] [place] [address]- 4625 14 Sep, 2012 [facility] [place] [facility] [address] [id number] [place] [address] 6368 13 Sep, 2012 [facility] [place] [facility] [address] [id number] [place] [address]- [address] Sep, [facility] [address] [id number] [place] [address]44 07 Sep, 2012 [facility] [place] [facility] [address] [id number] [place] [address] Sep, [facility] [place] [facility] [address] [id number] [place] [address] 6107 05 Sep, 2012 [facility] [place] [facility] [address] [id number] [place] [address] 8827 August, [facility] [place] [facility] [address] [id number] [place] [address] 3472 August, [facility] [place] [facility] [address] [id number] [place] [address] 0336 August, [facility] [place] [facility] [address] [id number] [place] [address] 4256 August, [facility] [place] [facility] [address] [id number] [place] [address] August, [facility] [address] [id number] [place] [address] 7968 August, [facility] [address] [id number] [place] [address] August, [facility] [address] [id number] [place] [address] 65[address] August, [facility] [address] [id number] [place] [address]27 Jul, [facility] [address] [id number] [place] [address] Jul, [address] [id number] Jul [facility] [address] [id number] [place] [address] Jun, [facility] [address] [id number] [place] [address] 9661 Jun, [facility] [address] [id number] [place] [address] 8689 Jun, [facility] [address] [id number] [place] [address] 4864 Jun, [facility] [address] [id number] [place] [address] 47[address] Jun, [facility] [address] [id number], [place] [address] Jun, [facility] [address] [id number] [place] [address] 2809 May, [facility] [address] [id number] [place] [address] May, [facility] [address] [id number] [place] [address] May, [facility] [address] [id number] [place] [address]- 8961 May, [facility] [address] [id number] [place] [address]- 9729 May, [facility] [address] [id number] [place] [address] 1489 Apr, [facility] [address] [facility] [id number] [place] [address]- 4325 Apr, [facility] [address] [id number] [place] [address]- 1228 Apr, [facility] [address] [id number] [place] [address]- 5874 Apr, [facility] [address] [id number] [place] [address]- 5983 Apr, [facility] [address] [facility] [id number] [place] [address]- 1294 Apr, [facility] [address] [id number] [place] [address] 4339 Mar, [facility] [address] [id number] [place] [address]- 3596 Mar, [facility] [address] [facility] [id number] [place] [address] Mar, [facility] [address] [facility] [id number] [place] [address] Mar, [facility] [place] [facility] [address] [id number] [place] [address] Mar, [facility] [place] [facility] [address] [id number] [place] [address] 18 Mar, 2012 [facility] [place] [facility] [address] [facility] [id number] [place] [address] 18 Mar, 2012 [facility] [address] [facility] [id number] [place] [address] 10 Mar, 2012 [facility] [place] [facility] [address] [id number] [place] [address] Mar, [facility] [place] [facility] [address] [id number] [place] [address] 05 Mar, 2012 [facility] [place] [facility] [address] [id number] [place] [address] Mar, [facility] [place] [facility] [address] [id number] [place] [address] Feb, [facility] [place] [facility] [address] [id number] [place] [address] Feb, [facility] [place] [facility] [address] [id number] [place] [address] Feb, [facility] [place] [facility] [address] [id number] [place] [address] Feb, [facility] [place] [facility] [address] [id number] [place] [address] Feb, [facility] [place] [facility] [address] [id number] [place] [address] Feb, [facility] [place] [facility] [address] [id number] [place] [address] 9661 Feb, [facility] [place] [facility] [address] [facility] [id number] [place] [address] Feb, [facility] [place] [facility] [address] [id number] [place] [address] Feb, [facility] [place] [facility] [address] [id number] [place] [address] Feb, [facility] [place] [facility] [address] [id number] [place] [address] 8411 Feb, [facility] [place] [facility] [address] [id number] [place] [address] Jan, [facility] [place] [facility] [address] [id number] [place] [address] 31 Jan, 2012 [facility] [place] [facility] [address] [id number] [place] [address] Jan, [facility] [place] [facility] [address] [id number] [place] [address] 23 Jan, 2012 [facility] [place] [facility] [address] [id number] [place] [address] 47[address] Jan, [facility] [place] [facility] [address] [id number] [place] [address]598 19 Jan, 2012 [facility] [place] [facility] [address] [id number] [place] [address]- [address]342 09 Jan, 2012 [facility] [place] [facility] [address] [id number] [place] [address]192 24 Dec, 2011 [facility] [place] [facility] [address] [id number] [place] [address]326 17 Dec, 2011 [facility] [place] [facility] [address] [id number] [place] [address]16 13 Dec, 2011 [facility] [place] [facility] [address] [id number] [place] [address]78 12 Dec, 2011 [facility] [place] [facility] [address] [id number] [place] [address]- 0661 23 Nov, 2011 [facility] [place] [facility] [address] [id number], [place] [address] 20 Nov, 2011 [facility] [place] [facility] [address] [id number], [place] [address] 17 Nov, 2011 [facility] [place] [facility] [address] [id number] [place] [address]- 1021 15 Nov, 2011 [facility] [place] [facility] [address] [id number], [place] [address] 14 Nov, 2011 [facility] [place] [facility] [address] [id number] [place] [address]- [address]284 13 Nov, 2011 [facility] [place] [facility] [address] [id number] [place] [address] Nov, [facility] [place] [facility] [address] [id number] [place] [address] 42[address] Nov, [facility] [place] [facility] [address] [id number] [place] [address]- 5446 Nov, [facility] [place] [facility] [address] [id number] [place] [address] 9494 Nov, [facility] [place] [facility] [address] [id number] [place] [address]- 2046 Nov, [facility] [place] [facility] [address] [id number] [place] [address]- 4729 Nov, [facility] [place] [facility] [address] [id number] [place] [address]- 1382 Nov, [facility] [place] [facility] [address] [id number] [place] [address] 8[address] Oct, [facility] [place] [facility] [address] [id number] [place] [address]- 2058 Oct, [facility] [place] [facility] [address] [id number] [place] [address] 8570 Oct, [facility] [place] [facility] [address] [id number] [place] [address] Oct, [facility] [place] [facility] [address] [id number] [place] [address]- [address]60 Oct, [facility] [place] [facility] [address] [id number] [place] [address]- 6344 Oct, [facility] [place] [facility] [address] [id number] [place] [address]- 7325 Oct, [facility] [place] [facility] [address] [id number] [place] [address]- 1657 Oct, [facility] [place] [facility] [address] [id number] [place] [address]- 5031 Oct, [facility] [place] [facility] [address] [id number] [place] [address]- [address]774 Sep, [facility] [place] [facility] [address] [id number] [place] [address]- 4[address] Sep, [facility] [place] [facility] [address] [id number] [place] [address] 7309 Sep, [facility] [place] [facility] [address] [id number] [place] [address]- 6986 Sep, [facility] [place] [facility] [address] [id number] [place] [address]- 0296 Sep, [facility] [place] [facility] [address] [id number] [place] [address]- 7830 Sep, [facility] [place] [facility] [address] [id number] [place] [address]- 3308 Sep, [facility] [place] [facility] [address] [id number] [place] [address]- 9072 Sep, [facility] [place] [facility] [address] [id number] [place] [address] 6998 August, [facility] [place] [facility] [address] [id number] [place] [address]- [address] August, [facility] [place] [facility] [address] [id number] [place] [address]- 50[address] August, [facility] [place] [facility] [address] [id number] [place] [address]- 6674 August, [facility] [place] [facility] [address] [id number] [place] [address]- [address]221 August, [facility] [place] [facility] [address] [id number] [place] [address]- 7453 August, [facility] [place] [facility] [address] [id number] [place] [address]- 8747 August, [facility] [place] [facility] [address] [id number], [place] [address] August, [facility] [address] [facility] [id number], [place] [address] August, [facility] [address] [facility] [id number], [place] [address] August, [facility] [address] [facility] [id number], [place] [address] August, [facility] [address] [facility] [id number], [place] [address] August, [facility] [address] [facility] [id number], [place] [address] Oct, IMMUNIZATIONS No Known Immunizations SOCIAL HISTORY Never Assessed REASON FOR VISIT Diabetes-MEDARDO Hanna PLAN OF CARE Activity Details Follow Up 2 Weeks Reason:Chronic health maintenance VITAL SIGNS Height 63 in 2016-10-09 Temperature 98.2 degrees Fahrenheit 2016-10-09 Heart Rate 108 bpm 2016-10-09 Respiratory Rate 30 2016-10-09 Oximetry w/ oxygen:96 % 2016-10-09 Blood pressure systolic 142 mmHg 2016-10-09 Blood pressure diastolic 84 mmHg 2016-10-09 MEDICATIONS Medication Instructions Dosage Frequency Start Date End Date Duration Status Cetirizine HCl 10 mg Orally Once a day 1 tablet 24h 12 Apr, 2016 90 days Active Test strips Test Strips Accu-check strips as directed 6h 24 Jul, 2016 Active Lantus 100 UNIT/ML Subcutaneous Twice a day 55 units 12h 10 Jun, 2015 30 days Active Lisinopril 20 MG Orally Once a day 1 tablet 24h 90 Active Gemfibrozil 600 MG Orally Twice a day 1 tablet 12h 90 days Active Montelukast Sodium 10 mg Orally Once a day 1 tablet in the evening 24h 90 days Active Merchant View Ultra Test - TEST FOUR TIMES DAILY 25 Active UltiCare Mini Pen [place] 31G X 6 MM USE DIRECTED 12 Active Loperamide HCl 2 MG TAKE 2 CAPSULES BY MOUTH AFTER FIRST LOOSE STOOL THEN TAKE 1 CAPSULE AFTER EACH LOOSE STOOL - MAX 8 PER DAY 5 Active Carafate 1 GM Orally 4 times a day 1 tablet on an empty stomach 6h 30 Active Ipratropium [place] 0.02 % Inhalation every 8 hours, PRN 2.5 ml 30 days Active ProAir HFA 108 (90 Base) MCG/ACT Inhalation every 4 hrs 2 puffs as needed 4h 30 days Active Pravastatin Sodium 40 mg Orally Once a day 1 tablet 24h 90 days Active Lyrica 150 MG Orally 2 times a day 2 capsules 12h 90 days Active NovoLog 100 UNIT/ML Subcutaneous 3 times a day 30 units 8h Active Lancets Ultra Fine - as directed May, Active Benzonatate 200 mg Orally Three times a day 1 capsule as needed 8h Apr, Active Symbicort 160-4.5 MCG/ACT Inhalation Twice a day 2 puffs 12h Active Ranitidine HCl 150 MG Orally Once a day 2 tablets at bedtime 24h 90 days Active Ibuprofen 600 MG Orally 4 times a day 1 tablet as needed 6h 30 Active TRUEplus Insulin Syringe 31G X 5/16 USE DIRECTED 4 TIMES A DAY 25 Active Metformin HCl 1000 MG Orally 2 times a day 1 tablet with meals 12h 90 days Active Chlorhexidine Gluconate 4 % Externally daily -avoid face, head, genitals as directed Jul, Sep, 10 days Active Omeprazole 40 mg Orally Once a day 1 capsule 24h 90 days Active Bactroban 2 % Externally to infected skin areas Three times a day 1 application to affected area 8h 14 Active RESULTS No Results PROCEDURES Procedure Date Ordered Result Body Site MEASURE BLOOD OXYGEN LEVEL October 09, 2016 INSTRUCTIONS MEDICATIONS ADMINISTERED No Known Medications [...] Hospitalization History suicidal ideations-[place] 12/28 Hospitalization History hypoxia--[facility] 02/13/2016 Hospitalization History shortness of breath at june 2016 Hospitalization History Shortness of breath at august 2016 Hospitalization History SOB, chest pain at 12/2016
--- OUTSIDE RECORDS SUMMARY | 2017-11-24 19:10 | XMS REPORT ---
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 disorder 296.90 [facility] [id number] [place] [address] 89921 2546 Nov, Diarrhea 787.91 [facility] [id number] [place] [address] 04135 2546 Nov, [facility] [place] [id number] [place] [address] 06821 2546 Nov, Diarrhea 787.91 [facility] [address] [address] 2546 Nov, Diarrhea 787.91 and Hyperlipidemia 272.4 [facility] [id number], [place] [address]- 5173 Nov, Diarrhea 787.91 [facility] [id number] [place] [address] 80356- 7044 Nov, Affective disorder 296.90 [facility] [id number] [place] [address] 53557- 6842 Nov, Affective disorder 296.90 [facility] [id number] [place] [address] 80847- 9150 Nov, Affective disorder 296.90 [facility] [id number] [place] [address] 81877- 9918 Nov, [facility] [id number] [place] [address] 40499- 2513 Nov, [facility] [id number] [place] [address] 22134- 7453 Nov, [facility] [id number] [place] [address] 23893- 8455 Nov, Episodic mood disorder 296.90 [facility] [id number] [place] [address] 12572- 3650 Nov, [facility] [id number] [place] [address] 08523- 3931 Nov, [facility] [id number] [place] [address] 87128- 1730 Nov, [facility] [id number] [place] [address] 72264- 5225 Nov, [facility] [id number] [place] [address] 28532- 2076 Nov, [facility] [address] [address]- 1301 Nov, Lymphedema 457.1 ; Hyperlipidemia 272.4 ; Essential hypertension, benign 401.1 and Numbness of toes 782.0 [facility] [id number] [place] [address]- 3436 Nov, Episodic mood disorder 296.90 [facility] [id number] [place] [address]- 4346 Oct, 2014 [facility] [id number] [place] [address]- 0866 Oct, 2014 [facility] [id number] [address]- 6861 Oct, 2014 [facility] [id number] [place] [address]- 6959 Oct, 2014 [facility] [id number] [place] [address]- 3547 Oct, 2014 [facility] [address] [address]- 8207 Oct, 2014 [facility] [id number] [address]- 3776 Oct, [facility] [id number], [place] [address]- 0142 Oct, [facility] [id number] [address]- 8996 Oct, Episodic mood disorder 296.90 [facility] [address] [address] 2544 Sep, [facility] [id number] [address]- 2543 Sep, [facility] [id number] [address]- 9056 Sep, [facility] [id number] [address]- 2545 Sep, [facility] [id number] [address]- 7621 Sep, [facility] [id number] [address]- 3497 Sep, Episodic mood disorder 296.90 [facility] [address] [address]- 3622 Sep, Unspecified episodic mood disorder 296.90 [facility] [address] [address]- 0895 Sep, [facility] [id number] [place] [address] 72850- 9599 Sep, [facility] [id number] [place] [address] 25193- 3584 Sep, Episodic mood disorder 296.90 [facility] [id number] [address]- 7091 Sep, [facility] [id number] [place] [address] 28512- 2258 Sep, [facility] [id number] [address]- 3999 Sep, [facility] [id number] [place] [address] 86383- 1790 Sep, Hematemesis 578.0 and Vomiting 787.03 [facility] [id number] [address] Sep, Episodic mood disorder 296.90 [facility] [id number] [address] 08 Sep, 2014 [facility] [id number] [address] Sep, [facility] [id number] [address] 05 Sep, 2014 Diabetes mellitus without mention of complication, type II or unspecified type, not stated as uncontrolled 250.00 and Other chronic pain 338.29 [facility] [id number] [address] Sep, Episodic mood disorder 296.90 [facility] [id number] [address] Sep, [facility] [id number] [address] Sep, Episodic mood disorder 296.90 [facility] [id number] [address] Sep, [facility] [id number] [address] August, [facility] [id number] [address] August, [facility] [id number] [address] August, Episodic mood disorder 296.90 [facility] [id number] [address] August, [facility] [id number] [address] August, Unspecified episodic mood disorder 296.90 [facility] [id number] [address] August, Vomiting 787.03 [facility] [id number] [address] August, [facility] [id number] [address] August, [facility] [id number] [address] [address] August, [facility] [id number] August, [facility] [id number] [address] [address] August, [facility] [place] [facility] [address] [id number] [place] [address] 28 Jul, 2014 [facility] [place] [facility] [address] [id number] [place] [address]- [address] 14 Jul, 2014 [facility] [place] [facility] [address] [id number] [place] [address]- [address] 13 Jul, 2014 [facility] [place] [facility] [address] [id number] [place] [address]- [address] 30 Jun, 2014 [facility] [place] [facility] [address] [id number] [place] [address]- [address] 30 Jun, 2014 [facility] [place] [facility] [address] [id number] [place] [address]- [address] 30 Jun, 2014 [facility] [place] [facility] [address] [id number] [place] [address]- [address] 30 Jun, 2014 [facility] [place] [facility] [address] [id number] [place] [address]- [address] 30 Jun, 2014 [facility] [place] [facility] [address] [id number] [place] [address]- 99[address] 30 Jun, 2014 [facility] [place] [facility] [address] [id number] [place] [address]- [address] 30 Jun, 2014 [facility] [place] [facility] [address] [id number] [place] [address]- [address] 30 Jun, 2014 [facility] [place] [facility] [address] [id number] [place] [address]- [address] 27 Jun, 2014 [facility] [place] [facility] [address] [id number] [place] [address]- [address] Jun, [facility] [place] [facility] [address] [id number] [place] [address]- [address] Jun, [facility] [place] [facility] [address] [id number] [place] [address]- [address] Jun, [facility] [place] [facility] [address] [id number] [place] [address] Jun, [facility] [place] [facility] [address] [id number] [place] [address] 3[address] Jun, [facility] [place] [facility] [address] [id number] [place] [address] 8285 24 Jun, 2014 [facility] [place] [facility] [address] [id number] [place] [address] 5867 Jun, [facility] [place] [facility] [address] [id number] [place] [address] 6757 Jun, [facility] [place] [facility] [address] [id number] [place] [address] 0840 Jun, [facility] [place] [facility] [address] [id number] [place] [address]- 6291 Jun, [facility] [place] [facility] [address] [id number] [place] [address]- 7465 Jun, [facility] [place] [facility] [address] [id number] [place] [address]- 5884 Jun, [facility] [place] [facility] [address] [id number] [place] [address] 1906 Jun, [facility] [place] [facility] [address] [id number] [place] [address] 3670 Jun, [facility] [place] [facility] [address] [id number] [place] [address]- 2554 Jun, [facility] [place] [facility] [address] [id number] [address] 7[address] 20 Jun, 2014 [facility] [place] [facility] [address] [id number] [place] [address]- 2974 19 Jun, 2014 [facility] [place] [facility] [address] [id number] [place] [address]- 8493 19 Jun, 2014 [facility] [place] [facility] [address] [id number] [place] [address]- 8612 18 Jun, 2014 [facility] [place] [facility] [address] [id number] [place] [address]- 0645 18 Jun, 2014 [facility] [place] [facility] [address] [id number] [place] [address]- 8116 17 Jun, 2014 [facility] [place] [facility] [address] [id number] [place] [address]- 7696 17 Jun, 2014 [facility] [place] [facility] [address] [id number] [place] [address]- 9595 16 Jun, 2014 [facility] [place] [facility] [address] [id number] [place] [address]- 7725 16 Jun, 2014 [facility] [place] [facility] [address] [id number] [place] [address]- 5637 16 Jun, 2014 [facility] [place] [facility] [address] [id number] [place] [address]- 1554 16 Jun, 2014 [facility] [place] [facility] [address] [id number] [place] [address]- 3164 16 Jun, 2014 [facility] [place] [facility] [address] [id number] [place] [address]- 4924 16 Jun, 2014 [facility] [place] [facility] [address] [id number] [place] [address]- 1049 13 Jun, 2014 [facility] [place] [facility] [address] [id number] [place] [address]- 6854 13 Jun, 2014 [facility] [place] [facility] [address] [id number] [place] [address]- 7476 12 Jun, 2014 [facility] [place] [facility] [address] [id number] [place] [address]- 5174 12 Jun, 2014 [facility] [place] [facility] [address] [id number] [place] [address]- 2950 09 Jun, 2014 [facility] [place] [facility] [address] [id number] [place] [address]- 7408 09 Jun, 2014 [facility] [place] [facility] [address] [id number] [place] [address]- 0323 Jun, 2014 [facility] [place] [facility] [address] [id number] [place] [address]- 1386 Jun, [facility] [place] [facility] [address] [id number] [place] [address]- 4764 Jun, [facility] [place] [facility] [address] [id number] [place] [address]- 2942 Jun, [facility] [place] [facility] [address] [id number] [place] [address]- 5823 Jun, 2014 [facility] [place] [facility] [address] [id number] [place] [address]- 1021 Jun, [facility] [place] [facility] [address] [id number] [place] [address]- 9513 Jun, [facility] [place] [facility] [address] [id number] [place] [address]- 2635 Jun, [facility] [place] [facility] [address] [id number] [place] [address]- 2053 Jun, [facility] [place] [facility] [address] [id number] [place] [address]- 3253 Jun, [facility] [place] [facility] [address] [id number] [place] [address]- 3471 Jun, [facility] [place] [facility] [address] [id number] [place] [address]- 5977 Jun, [facility] [place] [facility] [address] [id number], [place] [address] 3960 Jun, [facility] [place] [facility] [address] [id number] [place] [address]- 4386 Jun, [facility] [place] [facility] [address] [id number] [place] [address]- 5863 May, [facility] [place] [facility] [address] [id number] [place] [address]- 0545 May, [facility] [place] [facility] [address] [id number], [place] [address]- 2666 May, 2014 [facility] [place] [facility] [address] [id number] [place] [address]- 0376 May, 2014 [facility] [place] [facility] [address] [facility] [id number] [place] [address]- 4626 24 May, 2014 [facility] [place] [facility] [address] [facility] [id number] [place] [address]- 7550 May, 2014 [facility] [place] [facility] [address] [facility] [id number] [place] [address]- 5621 20 May, 2014 [facility] [place] [facility] [address] [facility] [id number] [place] [address]- 6566 May, 2014 [facility] [place] [facility] [address] [id number] [place] [address]- 9229 20 May, 2014 [facility] [place] [facility] [address] [id number] [place] [address]- 4731 20 May, 2014 [facility] [place] [facility] [address] [facility] [id number] [place] [address]- 7407 18 May, 2014 [facility] [place] [facility] [address] [id number] [place] [address]- 5829 18 May, 2014 [facility] [place] [facility] [address] [id number] [place] [address]- 9792 13 May, 2014 [facility] [place] [facility] [address] [facility] [id number] [place] [address]- 7239 13 May, 2014 [facility] [place] [facility] [address] [facility] [id number] [place] [address]- 2547 11 May, 2014 [facility] [place] [facility] [address] [facility] [id number] [place] [address]- 8009 11 May, 2014 [facility] [place] [facility] [address] [facility] [id number] [place] [address]- 0395 11 May, 2014 [facility] [place] [facility] [address] [facility] [id number], [place] [address]- 2209 May, 2014 [facility] [place] [facility] [address] [id number] [place] [address]- 6316 May, 2014 [facility] [place] [facility] [address] [id number] [place]36 May, 2014 [facility] [place] [facility] [address] [facility] [id number] [place] [address]- 2212 May, 2014 [facility] [place] [facility] [address] [id number] [place] [address]- 1280 May, 2014 [facility] [place] [facility] [address] [id number] [place] [address]- 4693 May, 2014 [facility] [place] [facility] [address] [id number] [place] [address]- 4196 May, 2014 [facility] [place] [facility] [address] [facility] [id number] [place] [address]- 7410 May, 2014 [facility] [place] [facility] [address] [facility] [id number] [place] [address]- 0486 May, 2014 [facility] [place] [facility] [address] [facility] [id number] [place] [address]- 7463 May, 2014 [facility] [place] [facility] [address] [facility] [id number] [place] [address]- 0478 Apr, [facility] [place] [facility] [address] [facility] [id number] [place] [address]- 0944 Apr, [facility] [place] [facility] [address] [facility] [id number], [place] [address]- 2923 Apr, [facility] [place] [facility] [address] [id number] [place] [address]- 1354 Apr, [facility] [place] [facility] [address] [facility] [id number], [place] [address]- 4032 Apr, [facility] [place] [facility] [address] [facility] [id number], [place] [address]- 9802 Apr, [facility] [place] [facility] [address] [id number] [place] [address]- 8186 Apr, [facility] [place] [facility] [address] [id number] [place] [address]- 1436 Apr, [facility] [place] [facility] [address] [id number] [place] [address]- 3193 Apr, [facility] [place] [facility] [address] [id number] [place] [address]- 1934 Apr, [facility] [place] [facility] [address] [id number] [place] [address]- 4322 Apr, [facility] [place] [facility] [address] [id number] [place] [address]- 4186 Apr, [facility] [place] [facility] [address] [id number] [place] [address]- 8018 Apr, [facility] [place] [facility] [address] [id number] [place] [address]- 5700 Apr, [facility] [place] [facility] [address] [id number] [place] [address]- 0521 Apr, [facility] [place] [facility] [address] [id number] [place] [address]- 4992 Apr, [facility] [place] [facility] [address] [id number] [place] [address]- 4553 Apr, [facility] [place] [facility] [address] [id number] [place] [address]- 3296 Apr, [facility] [place] [facility] [address] [id number] [place] [address]- 7384 Apr, [facility] [place] [facility] [address] [id number] [place] [address]- 9624 Apr, [facility] [place] [facility] [address] [id number] [place] [address]- 8501 Mar, [facility] [place] [facility] [address] [id number] [place] [address]- 7446 Mar, [facility] [place] [facility] [address] [id number] [place] [address]- 1075 Mar, [facility] [place] [facility] [address] [id number] [place] 9186 Mar, [facility] [place] [facility] [address] [id number] [place] [address]- 1436 Mar, [facility] [place] [facility] [address] [id number] [place] [address]- 8807 Mar, [facility] [place] [facility] [address] [id number] [place] [address]- 4373 Mar, [facility] [place] [facility] [address] [id number] [place] [address]- 9781 Mar, [facility] [place] [facility] [address] [id number] [place] [address]- 9440 15 Mar, 2014 [facility] [place] [facility] [address] [id number] [place] [address]- 2283 15 Mar, 2014 [facility] [place] [facility] [address] [id number] [place] [address]- 8137 15 Mar, 2014 [facility] [place] [facility] [address] [id number] [place] [address]- 2569 15 Mar, 2014 [facility] [place] [facility] [address] [id number] [place] [address]- 6602 Mar, [facility] [place] [facility] [address] [id number] [place] [address]- 4276 Mar, [facility] [place] [facility] [address] [id number] [place] 3826 Mar, [facility] [place] [facility] [address] [id number] [place] [address]- 7145 Mar, [facility] [place] [facility] [address] [id number] [place] [address]- 2167 Feb, [facility] [place] [facility] [address] [id number] [place] [address]- 4885 28 Feb, 2014 [facility] [place] [facility] [address] [id number] [place] [address]- 3246 Feb, [facility] [place] [facility] [address] [id number] [place] [address]- 2635 Feb, [facility] [place] [facility] [address] [id number] [place] [address]- 2084 Feb, [facility] [place] [facility] [address] [id number] [place] [address]- 8295 Feb, [facility] [place] [facility] [address] [id number] [place] [address]- 4548 19 Feb, 2014 [facility] [place] [facility] [address] [id number] [place] [address]- 5584 18 Feb, 2014 [facility] [place] [facility] [address] [id number] [place] [address]- 0839 18 Feb, 2014 [facility] [place] [facility] [address] [id number] [place] [address]- 3888 17 Feb, 2014 [facility] [place] [facility] [address] [id number] [place] [address]- 5870 17 Feb, 2014 [facility] [place] [facility] [address] [id number] [place] [address]- 5849 17 Feb, 2014 [facility] [place] [facility] [address] [id number] [place] [address]- 8239 17 Feb, 2014 [facility] [place] [facility] [address] [id number] [place] [address]- 5939 14 Feb, 2014 [facility] [place] [facility] [address] [id number] [place] [address]- 5828 14 Feb, 2014 [facility] [place] [facility] [address] [id number] [place] [address]- 1565 14 Feb, 2014 [facility] [place] [facility] [address] [id number] [place] [address]- 1015 Feb, [facility] [place] [facility] [address] [id number] [place] [address]- 6634 Feb, [facility] [place] [facility] [address] [id number] [place] [address]- 1118 Feb, [facility] [place] [facility] [address] [id number] [place] [address]- 0697 Feb, [facility] [place] [facility] [address] [id number] [place] [address]- 7972 Feb, [facility] [place] [facility] [address] [id number] [place] [address]- 4107 Jan, [facility] [place] [facility] [address] [id number] [place] [address]- 0583 Jan, [facility] [place] [facility] [address] [id number] [place] [address]- 9092 Jan, [facility] [place] [facility] [address] [id number] [place] [address]- 6736 Jan, [facility] [place] [facility] [address] [id number] [place] [address]- 9599 Jan, [facility] [place] [facility] [address] [id number], [place] [address]- 1670 Jan, [facility] [place] [facility] [address] [id number], [place] [address]- 0828 Jan, [facility] [place] [facility] [address] [id number], [place] [address]- 8579 Jan, [facility] [place] [facility] [address] [id number] [place] [address]- 3855 Jan, [facility] [place] [facility] [address] [id number] [place] [address]- 0583 Jan, [facility] [place] [facility] [address] [id number], [place] [address]- 3893 Jan, [facility] [place] [facility] [address] [id number], [place] [address]- 3860 17 Jan, 2013 [facility] [place] [facility] [address] [id number] [place] [address]- 3586 17 Jan, 2013 [facility] [place] [facility] [address] [id number] [place] [address]- 0483 17 Jan, 2013 [facility] [place] [facility] [address] [id number] [place] [address]- 6819 15 Jan, 2013 [facility] [place] [facility] [address] [id number] [place] [address]- 0913 15 Jan, 2013 [facility] [place] [facility] [address] [id number] [place] [address]- 8041 14 Jan, 2014 [facility] [place] [facility] [address] [id number] [place] [address]- 6178 14 Jan, 2013 [facility] [place] [facility] [address] [id number], [place] [address]- 9178 13 Jan, 2013 [facility] [place] [facility] [address] [id number] [place] [address]- 3221 13 Jan, 2013 [facility] [place] [facility] [address] [id number] [place] [address]- 3559 13 Jan, 2014 [facility] [place] [facility] [address] [id number] [place] [address]- 3826 13 Jan, 2014 [facility] [place] [facility] [address] [id number], [place] [address]- 5035 10 Jan, 2013 [facility] [place] [facility] [address] [id number], [place] [address]- 9667 02 Jan, 2014 [facility] [place] [facility] [address] [id number] [place] [address]- 0602 Jan, [facility] [place] [facility] [address] [id number], [place] [address]- 5368 25 Dec, 2013 [facility] [place] [facility] [address] [id number], [place] [address]- 6295 25 Dec, 2013 [facility] [place] [facility] [address] [id number] [place] [address]- 8990 23 Sep, 2013 [facility] [place] [facility] [address] [id number] [place] [address] 2546 23 Sep, 2013 [facility] [place] [facility] [address] [id number] [place] [address] 2546 19 Sep, 2013 [facility] [place] [facility] [address] [id number] [place] [address] 2546 19 Sep, 2013 [facility] [place] [facility] [address] [id number] [place] [address] 2542 17 Sep, 2013 [facility] [place] [facility] [address] [id number] [place] [address] 2540 17 Sep, 2013 [facility] [place] [facility] [address] [id number] [place] [address]- 4460 09 Sep, 2013 [facility] [place] [facility] [address] [id number] [place] [address]- 3228 09 Sep, 2013 [facility] [place] [facility] [address] [id number] [place] [address] 254 08 Sep, 2013 [facility] [place] [facility] [address] [id number] [place] [address] 2549 08 Sep, 2013 [facility] [place] [facility] [address] [id number] [place] [address] 2548 04 Sep, 2013 [facility] [place] [facility] [address] [id number] [place] [address] 2542 04 Sep, 2013 [facility] [place] [facility] [address] [id number] [place] [address] 2540 02 Sep, 2013 [facility] [place] [facility] [address] [id number] [place] [address] 2546 02 Sep, 2013 [facility] [place] [facility] [address] [id number] [place] [address] 2543 02 Sep, 2013 [facility] [place] [facility] [address] [id number] [place] [address]- 8768 Dec, [facility] [place] [facility] [address] [id number] [place] [address]- 5628 Nov, [facility] [place] [facility] [address] [id number] [place] [address]- 0376 Nov, [facility] [place] [facility] [address] [id number] [place] [address]- 0037 Nov, [facility] [place] [facility] [address] [id number] [place] [address]- 7404 Nov, [facility] [place] [facility] [address] [id number] [place] [address]- 0582 Nov, [facility] [place] [facility] [address] [id number] [place] [address]- 4400 Nov, [facility] [place] [facility] [address] [id number] [place] [address]- 4138 Nov, [facility] [place] [facility] [address] [id number] [place] [address]- 6022 Nov, [facility] [place] [facility] [address] [id number] [place] [address]- 7769 Nov, [facility] [place] [facility] [address] [id number] [place] [address]- 0536 Nov, [facility] [place] [facility] [address] [id number] [place] [address]- 7750 Nov, [facility] [place] [facility] [address] [id number], [place] [address]- 7145 Nov, [facility] [place] [facility] [address] [id number] [place] [address]- 5103 Oct, [facility] [place] [facility] [address] [id number] [place] [address]- 8053 Oct, [facility] [place] [facility] [address] [id number] [place] [address]- 4105 Oct, [facility] [place] [facility] [address] [id number] [place] [address]- 9037 Oct, [facility] [place] [facility] [address] [id number] [place] [address]- 7909 Oct, [facility] [place] [facility] [address] [id number] [place] [address]- 8955 Oct, [facility] [place] [facility] [address] [id number] [place] [address]- 3198 Oct, [facility] [place] [facility] [address] [id number] [place] [address]- 1514 Oct, [facility] [place] [facility] [address] [id number] [place] [address]- 1695 Oct, [facility] [place] [facility] [address] [id number] [place] [address]- 8218 Oct, [facility] [place] [facility] [address] [id number] [place] [address]- 0810 Oct, [facility] [place] [facility] [address] [id number] [place] [address]- 3273 Oct, [facility] [place] [facility] [address] [id number] [place] [address] Oct, [facility] [place] [facility] [address] [id number] [place] [address] Oct, [facility] [place] [facility] [address] [id number] [place] [address] Oct, [facility] [place] [facility] [address] [id number] [place] [address] Oct, [facility] [place] [facility] [address] [id number] [place] [address] Oct, [facility] [place] [facility] [address] [id number] [place] [address] Sep, [facility] [place] [facility] [address] [id number] [place] [address] Sep, [facility] [place] [facility] [address] [id number] [place] [address] Sep, [facility] [place] [facility] [address] [id number] [place] [address] Sep, [facility] [place] [facility] [address] [id number] [place] [address] Sep, [facility] [place] [facility] [address] [id number] [place] [address] 9514 Sep, [facility] [place] [facility] [address] [id number] [place] [address] Sep, [facility] [place] [facility] [address] [id number] [place] [address] Sep, [facility] [place] [facility] [address] [id number] [place] [address] Sep, [facility] [place] [facility] [address] [id number] [place] [address] Sep, [facility] [place] [facility] [address] [id number] [place] [address] 92[address] Sep, [facility] [place] [facility] [address] [id number] [place] [address] Sep, [facility] [place] [facility] [address] [id number] [place] [address] Sep, [facility] [place] [facility] [address] [id number] [place] [address] Sep, [facility] [place] [facility] [address] [id number] [place] [address] Sep, [facility] [place] [facility] [address] [id number] [place] [address] Sep, [facility] [place] [facility] [address] [id number] [place] [address] 07 Sep, 2013 [facility] [place] [facility] [address] [id number] [place] [address] 2869 Sep, [facility] [place] [facility] [address] [id number] [place] [address] Sep, [facility] [place] [facility] [address] [id number] [place] [address] 1764 Sep, [facility] [place] [facility] [address] [id number] [place] [address]- [address] Sep, [facility] [place] [facility] [address] [id number] [place] [address] 1474 Sep, [facility] [place] [facility] [address] [id number] [place] [address]142 August, [facility] [place] [facility] [address] [id number] [place] [address] August, [facility] [place] [facility] [address] [id number] [place] [address] August, [facility] [place] [facility] [address] [id number] [place] [address]- 59[address] August, [facility] [place] [facility] [address] [id number] [place] [address]- 2914 August, [facility] [place] [facility] [address] [id number] [place] [address] August, [facility] [place] [facility] [address] [id number] [place] [address] August, [facility] [place] [facility] [address] [id number] [place] [address]- 9569 August, [facility] [place] [facility] [address] [id number] [place] [address] 110[address] August, [facility] [place] [facility] [address] [id number] [place] [address] 58[address] August, [facility] [place] [facility] [address] [id number] [place] [address] August, [facility] [place] [facility] [address] [id number] [place] [address] 28 Jul, 2013 [facility] [address] [id number] [place] [address] Jul, [facility] [place] [facility] [address] [id number] [place] [address] Jul, [facility] [address] [id number] [place] [address] Jul, [facility] [address] [id number] [place] [address] 1490 Jul, [facility] [address] [id number] [place] [address] Jul, [facility] [address] [id number] [place] [address] Jul, [facility] [address] [id number] [place] [address]- [address] Jul, [facility] [address] [id number] [place] [address] 18 Jul, 2013 [facility] [address] [id number] [place] [address]80 18 Jul, 2013 [facility] [address] [id number] [place] [address]- [address] 16 Jul, 2013 [facility] [place] [facility] [address] [id number] [place] [address]- [address] 14 Jul, 2013 [facility] [address] [id number] [place] [address]- 1990 14 Jul, 2013 [facility] [place] [facility] [address] [id number] [place] [address]- [address] 11 Jul, 2013 [facility] [place] [facility] [address] [id number] [place] [address]- 4[address] 11 Jul, 2013 [facility] [place] [facility] [address] [id number] [place] [address]- [address] Jul, [facility] [place] [facility] [address] [id number] [place] [address] 4138 Jul, [facility] [place] [facility] [address] [id number] [place] [address]- [address]78 Jul, [facility] [place] [facility] [address] [id number] [place] [address]- 3024 Jul, [facility] [place] [facility] [address] [id number] [place] [address]378 Jul, [facility] [place] [facility] [address] [id number] [place] [address]- 3596 Jul, [facility] [place] [facility] [address] [id number] [place] [address] 1440 Jul, [facility] [place] [facility] [address] [id number] [place] [address]- 0897 Jul, [facility] [place] [facility] [address] [id number] [place] [address]- 1061 Jun, [facility] [place] [facility] [address] [id number] [place] [address] 25[address] Jun, [facility] [place] [facility] [address] [id number] [place] [address]- 1057 Jun, [facility] [place] [facility] [address] [id number] [place] [address]- 3544 Jun, [facility] [place] [facility] [address] [id number] [place] [address]- 8571 Jun, [facility] [place] [facility] [address] [id number] [place] [address]- 0866 Jun, [facility] [place] [facility] [address] [id number] [place] [address]- 1996 Jun, [facility] [place] [facility] [address] [id number] [place] [address]- [address] Jun, [facility] [place] [facility] [address] [id number] [place] [address] 18 Jun, 2013 [facility] [place] [facility] [address] [id number] [place] [address] Jun, [facility] [place] [facility] [address] [id number] [place] [address] 2679 Jun, [facility] [place] [facility] [address] [id number] [place] [address] 5946 Jun, [facility] [place] [facility] [address] [id number] [place] [address] 1194 May, [facility] [place] [facility] [address] [id number] [place] [address] 7338 May, [facility] [place] [facility] [address] [id number] [place] [address] 5574 Apr, [facility] [place] [facility] [address] [id number] [place] [address] Apr, [facility] [place] [facility] [address] [id number] [place] [address]91 Apr, [facility] [place] [facility] [address] [id number] [place] [address] 4216 Apr, [facility] [place] [facility] [address] [id number] [place] [address] 2885 Apr, [facility] [place] [facility] [address] [id number] [place] [address]- 0037 Apr, [facility] [place] [facility] [address] [id number] [place] [address]- 9466 Apr, [facility] [place] [facility] [address] [id number] [place] [address]- 2684 Apr, [facility] [place] [facility] [address] [id number] [place] [address]- 1628 Apr, [facility] [place] [facility] [address] [id number] [place] [address]- 7357 Apr, [facility] [place] [facility] [address] [id number] [place] [address]- 0315 Apr, [facility] [place] [facility] [address] [id number] [place] [address] 2964 Mar, [facility] [place] [facility] [address] [id number] [place] [address] Mar, [facility] [place] [facility] [address] [id number] [place] [address] 7183 Mar, [facility] [place] [facility] [address] [id number] [place] [address]- 9933 Mar, [facility] [place] [facility] [address] [id number] [place] [address]- 6513 Feb, [facility] [place] [facility] [address] [id number] [place] [address]- 1437 Feb, [facility] [place] [facility] [address] [id number] [place] [address]- 3178 Feb, [facility] [place] [facility] [address] [id number] [place] [address]- 9818 Feb, [facility] [place] [facility] [address] [id number] [place] [address]- 2196 Feb, [facility] [place] [facility] [address] [id number] [place] [address]- 2505 Feb, [facility] [place] [facility] [address] [id number] [place] [address]- 3299 Feb, [facility] [place] [facility] [address] [id number] [place] [address]- 4968 Feb, [facility] [place] [facility] [address] [id number] [place] [address]- 5628 Feb, [facility] [place] [facility] [address] [id number] [place] [address] 5631 Feb, [facility] [place] [facility] [address] [id number] [place] [address]- 3153 Feb, [facility] [place] [facility] [address] [id number] [place] [address]- 5972 Jan, [facility] [place] [facility] [address] [id number] [place] [address]- 1790 Jan, [facility] [place] [facility] [address] [id number] [place] [address]- 1520 Jan, [facility] [place] [facility] [address] [id number] [place] [address]- 0133 Jan, [facility] [place] [facility] [address] [id number] [place] [address]- 8343 Jan, [facility] [place] [facility] [address] [id number] [place] [address]- 7078 Jan, [facility] [place] [facility] [address] [id number] [place] [address]- 5834 Jan, [facility] [place] [facility] [address] [id number] [address] 02 Jan, 2013 [facility] [place] [facility] [address] [id number], [place] [address]77 30 Sep, 2012 [facility] [place] [facility] [address] [id number] [place] [address]- 0750 25 Sep, 2012 [facility] [place] [facility] [address] [id number] [address]15 18 Sep, 2012 [facility] [place] [facility] [address] [id number], [place] [address] 0966 17 Sep, 2012 [facility] [place] [facility] [address] [id number] [place] [address] 2544 17 Sep, 2012 [facility] [place] [facility] [address] [id number], [place] [address] 16 Sep, 2012 [facility] [place] [facility] [address] [id number], [place] [address] 2549 13 Sep, 2012 [facility] [place] [facility] [address] [id number] [place] [address]- 3210 11 Dec, 2012 [facility] [address] [id number] [place] [address] 8337 05 Dec, 2012 [facility] [address] [id number] [place] [address]- 1514 04 Dec, 2012 [facility] [address] [id number] [place] [address] 30 Nov, 2012 [facility] [address] [id number] [place] [address]- 4681 Nov, [facility] [address] [id number] [place] [address]- 3831 Nov, [facility] [address] [id number] [place] [address]- 9555 Nov, [facility] [address] [id number] [place] [address]- 2756 Nov, [facility] [address] [id number] [place] [address]- 5673 Nov, [facility] [address] [id number] [place] [address]- 9120 Nov, [facility] [address] [id number] [place] [address]- 3044 Oct, [facility] [place] [facility] [address] [id number] [place] [address] 2268 Oct, [facility] [address] [id number] [place] [address]- 6669 Oct, [facility] [place] [facility] [address] [id number] [place] [address]- 0860 17 Oct, 2012 [facility] [place] [facility] [address] [id number] [place] [address]- 6357 15 Oct, 2012 [facility] [place] [facility] [address] [id number] [place] [address]- 2885 Oct, [facility] [place] [facility] [address] [id number] [place] [address]- 9632 Sep, [facility] [place] [facility] [address] [id number] [place] [address]- 0423 Sep, [facility] [place] [facility] [address] [id number] [place] [address]- 3291 Sep, [facility] [place] [facility] [address] [id number] [place] [address]- 7893 Sep, [facility] [address] [id number] [place] [address]- 6630 Sep, [facility] [place] [facility] [address] [id number] [place] [address]- 9983 Sep, [facility] [address] [id number] [place] [address]- 3334 Sep, [facility] [place] [facility] [address] [id number] [place] [address]- 5520 Sep, [facility] [place] [facility] [address] [id number] [place] [address]- 5386 Sep, [facility] [place] [facility] [address] [id number] [place] [address]- 5326 August, [facility] [place] [facility] [address] [id number] [place] [address]- 3287 August, [facility] [place] [facility] [address] [id number] [place] [address]- 0369 August, [facility] [place] [facility] [address] [id number] [place] [address]- 3053 August, [facility] [place] [facility] [address] [id number] [place] [address]- 0100 August, [facility] [place] [facility] [address] [id number] [place] [address]- 8649 August, [facility] [place] [facility] [address] [id number], [place] [address] 8156 August, [facility] [address] [id number] [place] [address]- 3193 August, [facility] [address] [id number] [place] [address]- 5874 Jul, [facility] [address] [id number] [place] [address]- 7505 Jul, [address] [id number] Jul [facility] [address] [id number] [place] [address]- 9330 Jun, [facility] [address] [id number] [place] [address]- 5563 Jun, [facility] [address] [id number] [place] [address]- 1375 Jun, [facility] [address] [id number], [place] [address]- 5557 Jun, [facility] [address] [id number] [place] [address]- 0382 Jun, [facility] [address] [id number], [place] [address]- 4197 Jun, [facility] [address] [id number], [place] [address]- 5692 May, [facility] [address] [id number], [place] [address]- 7717 May, [facility] [address] [id number] [place] [address]- 6873 May, [facility] [address] [id number] [place] [address]- 5156 May, [facility] [address] [id number], [place] [address]- 2546 May, [facility] [address] [id number] [place] [address]- 2626 30 Apr, 2012 [facility] [address] [id number] [place] [address]- 3469 15 Apr, 2012 [facility] [address] [id number] [place] [address]- 2356 11 Apr, 2012 [facility] [address] [id number] [place] [address]- 1448 Apr, [facility] [address] [id number] [place] [address]- 5937 Apr, [facility] [address] [id number] [place] [address]- 2845 Apr, [facility] [address] [id number] [place] [address]- 0415 26 Mar, 2012 [facility] [address] [id number] [place] [address]- 4629 20 Mar, 2012 [facility] [address] [id number] [place] [address]- 2819 20 Mar, 2012 [facility] [address] [id number] [place] [address]- 4776 19 Mar, 2012 [facility] [address] [facility] [id number] [place] [address]- 4151 19 Mar, 2012 [facility] [address] [id number] [place] [address] 254 18 Mar, 2012 [facility] [address] [id number] [place] [address] 2543 18 Mar, 2012 [facility] [address] [id number] [place] [address]- 0091 10 Mar, 2012 [facility] [address] [id number] [place] [address]- 2545 10 Mar, 2012 [facility] [address] [id number] [place] [address]- 0269 Mar, [facility] [place] [facility] [address] [id number] [place] [address]- 4215 Mar, [facility] [place] [facility] [address] [id number] [place] [address]- 2745 Feb, [facility] [place] [facility] [address] [id number] [place] [address]- 2759 Feb, [facility] [place] [facility] [address] [id number] [place] [address]- 5651 Feb, [facility] [place] [facility] [address] [id number] [place] [address]- 2958 Feb, [facility] [place] [facility] [address] [id number] [place] [address]- 7379 Feb, [facility] [place] [facility] [address] [facility] [id number] [place] [address]- 5149 Feb, [facility] [place] [facility] [address] [id number], [place] [address]- 1970 Feb, [facility] [place] [facility] [address] [facility] [id number] [place] [address]- 9572 Feb, [facility] [place] [facility] [address] [facility] [id number], [place] [address]- 3019 Feb, [facility] [place] [facility] [address] [facility] [id number], [place] [address]- 3999 Feb, [facility] [place] [facility] [address] [id number], [place] [address]- 9926 Feb, [facility] [place] [facility] [address] [id number], [place] [address]- 6720 Jan, [facility] [place] [facility] [address] [id number], [place] [address]- 5954 Jan, [facility] [place] [facility] [address] [facility] [id number], [place] [address]- 1824 Jan, [facility] [place] [facility] [address] [id number], [place] [address]- 8932 Jan, [facility] [place] [facility] [address] [id number] [place] [address]- 5224 Jan, [facility] [place] [facility] [address] [id number] [place] [address]- 9333 Jan, [facility] [place] [facility] [address] [id number] [place] [address]- 6133 Jan, [facility] [place] [facility] [address] [id number] [place] [address]- 7992 24 Dec, 2011 [facility] [place] [facility] [address] [id number] [place] [address]- 9550 17 Dec, 2011 [facility] [place] [facility] [address] [id number] [place] [address]- 0731 13 Dec, 2011 [facility] [place] [facility] [address] [id number] [place] [address]- 6229 12 Dec, 2011 [facility] [place] [facility] [address] [id number] [place] [address]- 2630 Nov, [facility] [place] [facility] [address] [id number] [place] [address]- 8386 Nov, [facility] [place] [facility] [address] [id number] [place] [address]- 0426 17 Nov, 2011 [facility] [place] [facility] [address] [id number] [place] [address]- 4759 15 Nov, 2011 [facility] [place] [facility] [address] [id number] [place] [address]- 5883 14 Nov, 2011 [facility] [place] [facility] [address] [id number] [place] [address]- 1028 13 Nov, 2011 [facility] [place] [facility] [address] [id number] [place] [address]- 8542 10 Nov, 2011 [facility] [place] [facility] [address] [facility] [id number] [place] [address]- 0820 09 Nov, 2011 [facility] [place] [facility] [address] [id number] [place] [address]- 6487 Nov, [facility] [place] [facility] [address] [id number] [place] [address]- 2373 Nov, [facility] [place] [facility] [address] [id number] [place] [address]- 9006 Nov, [facility] [place] [facility] [address] [id number] [place] [address]- 6914 Nov, [facility] [place] [facility] [address] [id number] [place] [address]- 8974 Nov, [facility] [place] [facility] [address] [id number] [place] [address]- 1169 Oct, [facility] [place] [facility] [address] [id number] [place] [address]- 2539 Oct, [facility] [place] [facility] [address] [id number] [place] [address]- 2605 Oct, [facility] [place] [facility] [address] [id number] [place] [address]- 5363 Oct, [facility] [place] [facility] [address] [id number] [place] [address]- 9591 Oct, [facility] [place] [facility] [address] [id number] [place] [address]- 4561 Oct, [facility] [place] [facility] [address] [id number] [place] [address]- 3620 Oct, [facility] [place] [facility] [address] [id number] [place] [address]- 3766 Oct, [facility] [place] [facility] [address] [id number] [place] [address]- 6715 Oct, [facility] [place] [facility] [address] [id number] [place] [address]- 0946 Sep, [facility] [place] [facility] [address] [id number] [place] [address]- 6649 Sep, [facility] [place] [facility] [address] [id number] [place] [address]- 1122 Sep, [facility] [place] [facility] [address] [id number] [place] [address]- 2511 Sep, [facility] [place] [facility] [address] [id number] [place] [address]- 1956 Sep, [facility] [place] [facility] [address] [id number] [place] [address]- 7623 Sep, [facility] [place] [facility] [address] [id number] [place] [address]- 7059 Sep, [facility] [place] [facility] [address] [id number] [place] [address]- 4546 Sep, [facility] [place] [facility] [address] [id number] [place] [address]- 8012 August, [facility] [place] [facility] [address] [id number] [place] [address]- 7379 August, [facility] [place] [facility] [address] [id number] [place] [address]- 3411 August, [facility] [place] [facility] [address] [id number] [place] [address]- 7879 August, [facility] [place] [facility] [address] [id number] [place] [address]- 4860 August, [facility] [place] [facility] [address] [id number] [place] [address]- 2901 August, [facility] [place] [facility] [address] [id number] [place] [address]- 6102 August, [facility] [place] [facility] [address] [id number] [place] [address]- 6884 August, [facility] [place] [facility] [address] [id number] [place] [address]- 5364 August, [facility] [place] [facility] [address] [facility] [id number] [place] [address]- 8354 August, [facility] [address] [facility] [id number] [place] [address]- 3070 August, [facility] [address] [facility] [id number] [place] [address]- 4442 August, [facility] [address] [facility] [id number] [place] [address]- 7661 Oct, IMMUNIZATIONS No Known Immunizations SOCIAL HISTORY Never Assessed REASON FOR VISIT syringes PLAN OF CARE VITAL SIGNS MEDICATIONS Medication Instructions Dosage Frequency Start Date End Date Duration Status NovoLog 100 UNIT/ML INJECT 40 UNITS SUBCUTANEOUSLY THREE TIMES DAILY Active RESULTS No Results PROCEDURES No Known [...] Hospitalization History suicidal ideations-[place] 12/28 Hospitalization History hypoxia--[facility] 02/13/2016 Hospitalization History shortness of breath at june 2016 Hospitalization History Shortness of breath at august 2016 Hospitalization History SOB, chest pain at 12/2016
--- OUTSIDE RECORDS SUMMARY | 2017-11-24 19:14 | XMS REPORT ---
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 [facility] [address] [address]- 6853 Sep, [facility] [id number] [place] [address] 66893- 3606 August, [facility] [address] [address]- 1497 August, [facility] [id number] [place] [address] 86619- 9280 August, Episodic mood disorder 296.90 [facility] [address] [address]- 9849 August, [facility] [id number] [place] [address] 48051- 3691 August, Unspecified episodic mood disorder 296.90 [facility] [address] [address]- 7621 August, Vomiting 787.03 [facility] [address] [address]- 4929 August, [facility] [address] [address]- 0491 August, [facility] [address] [address]- 7468 August, [facility] [address] [address]- 7915 August, [facility] [address] [address]- 2546 August, [facility] [place] [facility] [address] [id number] [place] [address]- 5578 28 Jul, 2014 [facility] [place] [facility] [address] [id number] [place] [address]- 9636 Jul, [facility] [place] [facility] [address] [id number] [place] [address]- 1801 Jul, [facility] [place] [facility] [address] [id number] [place] [address]- 8721 30 Jun, 2014 [facility] [place] [facility] [address] [id number] [place] [address]- 9517 Jun, [facility] [place] [facility] [address] [id number] [place] [address]- 0245 Jun, [facility] [place] [facility] [address] [id number] [place] [address]- 1690 Jun, [facility] [place] [facility] [address] [id number] [place] [address]- 2396 Jun, [facility] [place] [facility] [address] [id number] [place] [address]- 9180 Jun, [facility] [place] [facility] [address] [id number] [place] [address]- 7182 Jun, [facility] [place] [facility] [address] [id number] [place] [address]- 6468 Jun, [facility] [place] [facility] [address] [id number] [place] [address]- 2834 Jun, [facility] [place] [facility] [address] [id number] [place] [address]- 2187 Jun, [facility] [place] [facility] [address] [id number] [place] [address]- 1945 Jun, [facility] [place] [facility] [address] [id number] [place] [address]- 6295 Jun, [facility] [place] [facility] [address] [id number] [place] [address]- 2976 26 Jun, 2014 [facility] [place] [facility] [address] [id number] [place] [address]- 7661 26 Jun, 2014 [facility] [place] [facility] [address] [id number] [place] [address]- 8464 24 Jun, 2014 [facility] [place] [facility] [address] [id number] [place] [address]- 4039 Jun, [facility] [place] [facility] [address] [id number] [place] [address]- 7637 Jun, [facility] [place] [facility] [address] [id number] [place] [address]- 6304 Jun, [facility] [place] [facility] [address] [id number] [place] [address]- 3624 Jun, [facility] [place] [facility] [address] [id number] [place] [address]- 5362 Jun, [facility] [place] [facility] [address] [id number] [place] [address]- 2052 Jun, [facility] [place] [facility] [address] [id number] [place] [address]- 6942 Jun, [facility] [place] [facility] [address] [id number] [place] [address]- 6555 20 Jun, 2014 [facility] [place] [facility] [address] [id number] [place] [address]- 2576 20 Jun, 2014 [facility] [place] [facility] [address] [id number] [place] [address]- 1588 20 Jun, 2014 [facility] [place] [facility] [address] [id number] [place] [address]- 2913 19 Jun, 2014 [facility] [place] [facility] [address] [id number] [place] [address]- 8205 19 Jun, 2014 [facility] [place] [facility] [address] [id number] [place] 5946 18 Jun, 2014 [facility] [place] [facility] [address] [id number] [place] [address]- 3475 18 Jun, 2014 [facility] [place] [facility] [address] [id number] [place] [address]- 3059 17 Jun, 2014 [facility] [place] [facility] [address] [id number] [place] [address]- 8536 17 Jun, 2014 [facility] [place] [facility] [address] [id number] [place] [address]- 3036 16 Jun, 2014 [facility] [place] [facility] [address] [id number] [place] [address]- 2631 16 Jun, 2014 [facility] [place] [facility] [address] [id number] [place] [address]- 7251 16 Jun, 2014 [facility] [place] [facility] [address] [id number] [place] [address]- 4340 16 Jun, 2014 [facility] [place] [facility] [address] [id number] [place] [address]- 5252 16 Jun, 2014 [facility] [place] [facility] [address] [id number] [place] [address]- 9123 16 Jun, 2014 [facility] [place] [facility] [address] [id number] [place] [address]- 6966 13 Jun, 2014 [facility] [place] [facility] [address] [id number] [place] [address]- 0193 13 Jun, 2014 [facility] [place] [facility] [address] [id number] [place] [address]- 5803 12 Jun, 2014 [facility] [place] [facility] [address] [id number] [place] [address]- 2820 12 Jun, 2014 [facility] [place] [facility] [address] [id number] [place] [address]- 5788 09 Jun, 2014 [facility] [place] [facility] [address] [id number] [place] [address]- 9671 09 Jun, 2014 [facility] [place] [facility] [address] [id number] [address]- 4207 Jun, [facility] [place] [facility] [address] [id number] [place] [address]- 1189 Jun, [facility] [place] [facility] [address] [id number] [place] [address]- 2923 Jun, [facility] [place] [facility] [address] [facility] [id number] [place] [address]- 3452 Jun, [facility] [place] [facility] [address] [id number] [place] [address]- 7124 Jun, [facility] [place] [facility] [address] [id number] [place] [address]- 9671 Jun, [facility] [place] [facility] [address] [id number] [place] [address]- 8957 Jun, [facility] [place] [facility] [address] [facility] [id number] [place] [address]- 8745 Jun, [facility] [place] [facility] [address] [facility] [id number] [place] [address]- 8348 Jun, [facility] [place] [facility] [address] [id number] [place] [address]- 0718 Jun, [facility] [place] [facility] [address] [facility] [id number] [place] [address]- 1626 Jun, [facility] [place] [facility] [address] [id number] [place] [address]- 1021 Jun, [facility] [place] [facility] [address] [facility] [id number] [address]- 3609 Jun, [facility] [place] [facility] [address] [id number] [place] [address] Jun, [facility] [place] [facility] [address] [facility] [id number] [place] [address] May, [facility] [place] [facility] [address] [facility] [id number] [address] [address] May, [facility] [place] [facility] [address] [id number] [place] [address] May, 2014 [facility] [place] [facility] [address] [id number] [place] [address] May, 2014 [facility] [place] [facility] [address] [id number] [place] [address] May, 2014 [facility] [place] [facility] [address] [id number] [place] [address] May, 2014 [facility] [place] [facility] [address] [id number] [place] [address] May, 2014 [facility] [place] [facility] [address] [id number] [place] [address] May, 2014 [facility] [place] [facility] [address] [id number] [place] [address] May, 2014 [facility] [place] [facility] [address] [facility] [id number] [place] [address] May, 2014 [facility] [place] [facility] [address] [facility] [id number] [place] [address] 18 May, 2014 [facility] [place] [facility] [address] [facility] [id number] [place] [address] 18 May, 2014 [facility] [place] [facility] [address] [facility] [id number] [place] [address] 13 May, 2014 [facility] [place] [facility] [address] [facility] [id number] [place] [address] 13 May, 2014 [facility] [place] [facility] [address] [facility] [id number] [place] [address] May, 2014 [facility] [place] [facility] [address] [facility] [id number] [place] [address]6 May, 2014 [facility] [place] [facility] [address] [facility] [id number] [place] [address] May, 2014 [facility] [place] [facility] [address] [facility] [id number] [place] [address] 119[address] May, 2014 [facility] [place] [facility] [address] [id number] [place] [address]852 May, 2014 [facility] [place] [facility] [address] [facility] [id number] [place] [address]- [address] May, 2014 [facility] [place] [facility] [address] [id number] [place] [address] May, 2014 [facility] [place] [facility] [address] [id number] [place] [address]- [address] May, 2014 [facility] [place] [facility] [address] [id number] [place] [address] May, 2014 [facility] [place] [facility] [address] [facility] [id number] [place] [address]- [address] May, 2014 [facility] [place] [facility] [address] [facility] [id number] [address] May, 2014 [facility] [place] [facility] [address] [facility] [id number] [place] [address] May, 2014 [facility] [place] [facility] [address] [facility] [id number] [place] [address] May, [facility] [place] [facility] [address] [facility] [id number] [address] Apr, [facility] [place] [facility] [address] [facility] [id number] [place] [address] Apr, [facility] [place] [facility] [address] [id number] [address] Apr, [facility] [place] [facility] [address] [facility] [id number] [address] Apr, [facility] [place] [facility] [address] [facility] [id number] [place] [address] Apr, [facility] [place] [facility] [address] [facility] [id number] [address] Apr, [facility] [place] [facility] [address] [id number] [place] [address] Apr, [facility] [place] [facility] [address] [address] [id number] [place] [address] Apr, [facility] [place] [facility] [address] [id number] [place] [address] Apr, [facility] [place] [facility] [address] [id number] [place] [address] 4674 Apr, [facility] [place] [facility] [address] [id number] [place] [address] 8044 Apr, [facility] [place] [facility] [address] [id number] [place] [address] 9967 Apr, [facility] [place] [facility] [address] [id number] [place] [address] 3135 Apr, [facility] [place] [facility] [address] [id number] [place] [address] 0505 Apr, [facility] [place] [facility] [address] [id number] [place] [address]- 3531 Apr, [facility] [place] [facility] [address] [id number] [place] [address]- 9086 Apr, [facility] [place] [facility] [address] [id number] [address] Apr, [facility] [place] [facility] [address] [id number] [address] 8579 Apr, [facility] [place] [facility] [address] [id number] [place] [address]- 4304 Apr, [facility] [place] [facility] [address] [id number] [place] [address]- 3355 Apr, [facility] [place] [facility] [address] [id number] [place] [address] 3750 Mar, [facility] [place] [facility] [address] [id number] [place] [address]- 0920 Mar, [facility] [place] [facility] [address] [id number] [place] [address] 3626 Mar, [facility] [place] [facility] [address] [id number] [place] [address]- 8386 Mar, [facility] [place] [facility] [address] [id number] [place] [address]- 9476 Mar, [facility] [place] [facility] [address] [id number] [place] [address]- 7769 Mar, [facility] [place] [facility] [address] [id number] [place] [address]- 7018 Mar, [facility] [place] [facility] [address] [id number] [place] [address] 1976 Mar, [facility] [place] [facility] [address] [id number] [place] [address]- 8738 15 Mar, 2014 [facility] [place] [facility] [address] [id number] [place] [address]- 3092 15 Mar, 2014 [facility] [place] [facility] [address] [id number] [place] [address]- 0445 15 Mar, 2014 [facility] [place] [facility] [address] [id number] [place] [address]- 0208 15 Mar, 2014 [facility] [place] [facility] [address] [id number] [place] [address]- 8654 Mar, [facility] [place] [facility] [address] [id number] [place] [address] Mar, [facility] [place] [facility] [address] [id number] [place] [address]- 8286 Mar, [facility] [place] [facility] [address] [id number] [place] [address]- 7536 Mar, [facility] [place] [facility] [address] [id number] [place] [address]- 8723 Feb, [facility] [place] [facility] [address] [id number] [place] [address]- 5330 Feb, [facility] [place] [facility] [address] [id number] [place] [address]- 0153 Feb, [facility] [place] [facility] [address] [id number] [place] [address]- 0054 Feb, [facility] [place] [facility] [address] [id number] [place] [address]- 4299 Feb, [facility] [place] [facility] [address] [id number] [place] [address]- 6307 Feb, [facility] [place] [facility] [address] [id number] [place] [address]- 7497 Feb, [facility] [place] [facility] [address] [id number] [place] [address]- 6434 18 Feb, 2014 [facility] [place] [facility] [address] [id number] [place] [address]- 8477 18 Feb, 2014 [facility] [place] [facility] [address] [id number] [place] [address]- 9735 17 Feb, 2014 [facility] [place] [facility] [address] [id number] [place] [address]- 4393 17 Feb, 2014 [facility] [place] [facility] [address] [id number] [place] [address]- 8068 17 Feb, 2014 [facility] [place] [facility] [address] [id number] [address] 8928 17 Feb, 2014 [facility] [place] [facility] [address] [id number] [place] [address]- 0824 14 Feb, 2014 [facility] [place] [facility] [address] [id number] [place] [address]- 9452 14 Feb, 2014 [facility] [place] [facility] [address] [id number] [place] [address]- 0620 14 Feb, 2014 [facility] [place] [facility] [address] [id number] [place] [address]- 4312 14 Feb, 2014 [facility] [place] [facility] [address] [id number] [place] [address]- 3107 10 Feb, 2014 [facility] [place] [facility] [address] [id number] [place] [address]- 7112 10 Feb, 2014 [facility] [place] [facility] [address] [id number] [place] [address]- 3886 Feb, [facility] [place] [facility] [address] [id number] [place] [address]- 6213 Feb, [facility] [place] [facility] [address] [id number] [place] [address]- 0124 Jan, [facility] [place] [facility] [address] [id number] [place] [address]- 6874 Jan, [facility] [place] [facility] [address] [id number] [place] [address]- 3143 Jan, [facility] [place] [facility] [address] [id number] [place] [address]- 3516 Jan, [facility] [place] [facility] [address] [id number] [place] [address]- 8823 Jan, [facility] [place] [facility] [address] [id number] [place] [address]- 7053 Jan, [facility] [place] [facility] [address] [id number] [place] [address]- 0162 Jan, [facility] [place] [facility] [address] [id number] [place] [address]- 4088 Jan, [facility] [place] [facility] [address] [id number] [place] [address]- 7198 Jan, [facility] [place] [facility] [address] [id number] [place] [address]- 5849 Jan, [facility] [place] [facility] [address] [id number] [place] [address]- 2464 Jan, [facility] [place] [facility] [address] [id number] [place] [address]- 8358 17 Jan, 2013 [facility] [place] [facility] [address] [id number] [place] [address]- 1420 17 Jan, 2013 [facility] [place] [facility] [address] [id number] [place] [address]- 9925 17 Jan, 2014 [facility] [place] [facility] [address] [id number] [place] [address]- 1196 15 Jan, 2014 [facility] [place] [facility] [address] [id number] [place] [address]- 1506 15 Jan, 2014 [facility] [place] [facility] [address] [id number] [place] [address]- 9654 14 Jan, 2014 [facility] [place] [facility] [address] [id number] [place] [address]- 4261 14 Jan, 2014 [facility] [place] [facility] [address] [id number] [place] [address]- 7819 13 Jan, 2014 [facility] [place] [facility] [address] [id number] [place] [address]- 4360 13 Jan, 2014 [facility] [place] [facility] [address] [id number] [place] [address]- 5037 13 Jan, 2014 [facility] [place] [facility] [address] [id number] [place] [address]- 1633 13 Jan, 2014 [facility] [place] [facility] [address] [id number] [place] [address]- 8962 10 Jan, 2014 [facility] [place] [facility] [address] [id number] [place] [address]- 5880 02 Jan, 2014 [facility] [place] [facility] [address] [id number] [place] [address]- 9803 02 Jan, 2014 [facility] [place] [facility] [address] [id number] [place] [address]- 1258 25 Dec, 2013 [facility] [place] [facility] [address] [id number] [place] [address]- 2571 25 Sep, 2013 [facility] [place] [facility] [address] [id number] [place] [address]- 2195 23 Sep, 2013 [facility] [place] [facility] [address] [id number] [place] [address]- 7076 23 Sep, 2013 [facility] [place] [facility] [address] [id number] [place] [address] 2546 19 Sep, 2013 [facility] [place] [facility] [address] [id number] [place] [address]- 2543 19 Sep, 2013 [facility] [place] [facility] [address] [id number] [place] [address]- 2772 17 Sep, 2013 [facility] [place] [facility] [address] [id number] [place] [address]- 3959 17 Sep, 2013 [facility] [place] [facility] [address] [id number] [place] [address]- 7624 09 Sep, 2013 [facility] [place] [facility] [address] [id number] [place] [address]- 2984 09 Sep, 2013 [facility] [place] [facility] [address] [id number] [place] [address]- 4039 08 Sep, 2013 [facility] [place] [facility] [address] [id number] [place] [address]- 9002 08 Sep, 2013 [facility] [place] [facility] [address] [id number] [address]- 8280 04 Sep, 2013 [facility] [place] [facility] [address] [id number] [place] [address]- 2544 04 Sep, 2013 [facility] [place] [facility] [address] [id number] [place] [address]- 254 02 Sep, 2013 [facility] [place] [facility] [address] [id number] [place] [address]- 8368 02 Sep, 2013 [facility] [place] [facility] [address] [id number] [place] [address]- 2450 02 Sep, 2013 [facility] [place] [facility] [address] [id number] [place] [address]- 8668 Dec, [facility] [place] [facility] [address] [id number] [place] [address]- 2610 Nov, [facility] [place] [facility] [address] [id number] [place] [address]- 2730 Nov, [facility] [place] [facility] [address] [id number] [place] [address]- 5138 Nov, [facility] [place] [facility] [address] [id number] [place] [address]- 1048 Nov, [facility] [place] [facility] [address] [id number] [place] [address]- 7666 Nov, [facility] [place] [facility] [address] [id number] [place] [address]- 8139 Nov, [facility] [place] [facility] [address] [id number] [place] [address]- 5206 Nov, [facility] [place] [facility] [address] [id number] [place] [address]- 0624 Nov, [facility] [place] [facility] [address] [id number] [place] [address]- 5463 Nov, [facility] [place] [facility] [address] [id number] [place] [address]- 1388 Nov, [facility] [place] [facility] [address] [id number] [place] [address]- 7350 Nov, [facility] [place] [facility] [address] [id number] [place] [address]- 6526 Nov, [facility] [place] [facility] [address] [id number] [place] [address]- 6296 Oct, [facility] [place] [facility] [address] [id number] [place] [address]- 1749 Oct, [facility] [place] [facility] [address] [id number] [place] [address]- 4718 Oct, [facility] [place] [facility] [address] [id number] [place] [address]- 3711 Oct, [facility] [place] [facility] [address] [id number] [place] [address]- 5688 Oct, [facility] [place] [facility] [address] [id number] [place] [address]- 8078 Oct, [facility] [place] [facility] [address] [id number] [place] [address]- 3279 Oct, [facility] [place] [facility] [address] [id number] [place] [address]- 7869 Oct, [facility] [place] [facility] [address] [id number] [place] [address]- 5095 Oct, [facility] [place] [facility] [address] [id number] [place] [address]- 5652 Oct, [facility] [place] [facility] [address] [id number] [place] [address]- 0684 Oct, [facility] [place] [facility] [address] [id number] [place] [address]- 1689 Oct, [facility] [place] [facility] [address] [id number] [place] [address]- 8412 Oct, [facility] [place] [facility] [address] [id number] [place] [address]- 9338 Oct, [facility] [place] [facility] [address] [id number] [place] [address]- 2776 Oct, [facility] [place] [facility] [address] [id number] [place] [address]- 0479 Oct, [facility] [place] [facility] [address] [id number] [place] [address]- 1887 Oct, [facility] [place] [facility] [address] [id number] [place] [address]- 5513 Sep, [facility] [place] [facility] [address] [id number] [place] [address]- 6002 Sep, [facility] [place] [facility] [address] [id number] [place] [address]- 5650 Sep, [facility] [place] [facility] [address] [id number] [place] [address]- 7703 20 Sep, 2013 [facility] [place] [facility] [address] [id number] [place] [address]- 0063 18 Sep, 2013 [facility] [place] [facility] [address] [id number] [place] [address]- 2556 18 Sep, 2013 [facility] [place] [facility] [address] [id number] [place] [address]- 6743 17 Sep, 2013 [facility] [place] [facility] [address] [id number] [place] [address]- 7841 17 Sep, 2013 [facility] [place] [facility] [address] [facility] [id number] [place] [address]- 5340 Sep, [facility] [place] [facility] [address] [id number] [place] [address]- 8469 Sep, [facility] [place] [facility] [address] [id number] [place] [address]- 5088 Sep, [facility] [place] [facility] [address] [facility] [id number] [place] [address]- 0157 Sep, [facility] [place] [facility] [address] [id number] [place] [address]- 5054 Sep, [facility] [place] [facility] [address] [id number] [place] [address]- 2159 Sep, [facility] [place] [facility] [address] [id number] [place] [address]- 5954 09 Sep, 2013 [facility] [place] [facility] [address] [id number] [place] [address]- 3421 09 Sep, 2013 [facility] [place] [facility] [address] [facility] [id number] [place] [address]- 4243 07 Sep, 2013 [facility] [place] [facility] [address] [id number] [place] [address]- 7568 Sep, [facility] [place] [facility] [address] [id number] [place] [address]- 4996 Sep, [facility] [place] [facility] [address] [id number] [place] [address]- 9569 Sep, [facility] [place] [facility] [address] [id number] [place] [address]- 6211 Sep, [facility] [place] [facility] [address] [id number] [place] [address]- 2872 Sep, [facility] [place] [facility] [address] [id number] [place] [address]- 2378 August, [facility] [place] [facility] [address] [id number] [place] [address]- 9749 August, [facility] [place] [facility] [address] [id number] [place] [address]- 8885 August, [facility] [place] [facility] [address] [id number] [place] [address]- 4580 August, [facility] [place] [facility] [address] [id number] [place] [address]- 4794 August, [facility] [place] [facility] [address] [id number] [place] [address]- 1048 August, [facility] [place] [facility] [address] [id number] [place] [address]- 0509 August, [facility] [place] [facility] [address] [id number] [place] [address]- 9896 August, [facility] [place] [facility] [address] [id number] [place] 0592 August, [facility] [place] [facility] [address] [id number] [place] [address]- 5756 August, [facility] [place] [facility] [address] [id number] [place] [address]- 9943 August, [facility] [place] [facility] [address] [id number] [place] [address]- 9677 Jul, [facility] [place] [facility] [address] [id number] [place] [address]- 0083 Jul, [facility] [place] [facility] [address] [id number] [place] [address]- 0541 Jul, [facility] [place] [facility] [address] [id number] [place] [address]- 1396 Jul, [facility] [place] [facility] [address] [id number] [place] [address]- 7993 Jul, [facility] [place] [facility] [address] [id number] [place] [address]- 1744 Jul, [facility] [place] [facility] [address] [id number] [place] [address]- 5048 Jul, [facility] [place] [facility] [address] [id number] [place] [address]- 2703 Jul, [facility] [place] [facility] [address] [id number] [place] [address]- 0252 Jul, [facility] [place] [facility] [address] [id number] [place] [address]- 3990 Jul, [facility] [place] [facility] [address] [id number] [place] [address]- 7942 16 Jul, 2013 [facility] [place] [facility] [address] [id number] [place] [address]- 2949 Jul, [facility] [place] [facility] [address] [id number] [place] [address]- 7004 Jul, [facility] [place] [facility] [address] [id number] [place] [address]- 7687 Jul, [facility] [place] [facility] [address] [id number] [place] [address]- 9894 Jul, [facility] [place] [facility] [address] [id number] [place] [address]- 4355 Jul, [facility] [place] [facility] [address] [id number] [place] [address]- 8394 Jul, [facility] [place] [facility] [address] [id number] [place] [address]- 8535 Jul, [facility] [place] [facility] [address] [id number] [place] [address]- 8131 Jul, [facility] [place] [facility] [address] [id number] [place] [address]- 9017 Jul, [facility] [place] [facility] [address] [id number] [place] [address]- 1913 Jul, [facility] [place] [facility] [address] [id number] [place] [address]- 3755 Jul, [facility] [place] [facility] [address] [id number] [place] [address]- 1019 Jul, [facility] [place] [facility] [address] [id number] [place] [address]- 1855 Jun, [facility] [place] [facility] [address] [id number] [place] [address]- 9842 Jun, [facility] [place] [facility] [address] [id number] [place] [address]- 4482 Jun, [facility] [place] [facility] [address] [id number] [place] [address]- 3054 Jun, [facility] [place] [facility] [address] [id number] [place] [address]- 3729 Jun, [facility] [place] [facility] [address] [id number] [place] [address]- 5610 Jun, [facility] [place] [facility] [address] [id number] [place] [address]- 3083 Jun, [facility] [place] [facility] [address] [id number] [place] [address]- 7147 Jun, [facility] [place] [facility] [address] [id number] [place] [address] 18 Jun, 2013 [facility] [place] [facility] [address] [id number] [place] [address] 18 Jun, 2013 [facility] [place] [facility] [address] [id number] [place] [address] 17 Jun, 2013 [facility] [place] [facility] [address] [id number] [place] [address] 17 Jun, 2013 [facility] [place] [facility] [address] [id number] [place] [address] May, [facility] [place] [facility] [address] [id number] [place] [address] May, [facility] [place] [facility] [address] [id number] [place] [address] Apr, [facility] [place] [facility] [address] [id number] [place] [address] Apr, [facility] [place] [facility] [address] [id number] [place] [address] Apr, [facility] [place] [facility] [address] [id number] [place] [address] Apr, [facility] [place] [facility] [address] [id number] [place] [address] Apr, [facility] [place] [facility] [address] [id number] [place] [address] Apr, [facility] [place] [facility] [address] [id number] [place] [address] Apr, [facility] [place] [facility] [address] [id number] [place] [address]- [address] Apr, [facility] [place] [facility] [address] [id number] [place] [address]- [address] 14 Apr, 2013 [facility] [place] [facility] [address] [id number] [address] Apr, [facility] [address] [id number] [place] [address] Apr, [facility] [place] [facility] [address] [id number] [place] [address] Mar, [facility] [place] [facility] [address] [id number] [place] [address] Mar, [facility] [place] [facility] [address] [id number] [place] [address] Mar, [facility] [place] [facility] [address] [id number] [place] [address] Mar, [facility] [place] [facility] [address] [id number] [place] [address] Feb, [facility] [place] [facility] [address] [id number] [place] [address] 39[address] Feb, [facility] [place] [facility] [address] [id number] [place] [address]- 8984 Feb, [facility] [place] [facility] [address] [id number] [place] [address] Feb, [facility] [place] [facility] [address] [id number] [place] [address]180 Feb, [facility] [place] [facility] [address] [id number] [address] Feb, [facility] [place] [facility] [address] [id number] [place] [address] Feb, [facility] [place] [facility] [address] [id number] [address]- [address] Feb, [facility] [place] [facility] [address] [id number] [address]- 83[address] Feb, [facility] [place] [facility] [address] [id number] [place] [address] 1595 Feb, [facility] [place] [facility] [address] [id number] [place] [address] 70[address] 02 Feb, 2013 [facility] [place] [facility] [address] [id number] [place] [address] Jan, 2012 [facility] [place] [facility] [address] [id number] [place] [address] Jan, [facility] [place] [facility] [address] [id number] [place] [address] Jan, 2012 [facility] [place] [facility] [address] [id number] [place] [address]- [address] Jan, 2012 [facility] [place] [facility] [address] [id number] [place] [address] Jan, [facility] [place] [facility] [address] [id number] [place] [address] Jan, [facility] [place] [facility] [address] [id number] [place] [address] Jan, [facility] [address] [id number] [place] [address]- [address] 02 Jan, 2013 [facility] [place] [facility] [address] [id number] [place] [address] 30 Sep, 2012 [facility] [place] [facility] [address] [id number] [place] [address]- 160[address] 25 Sep, 2012 [facility] [place] [facility] [address] [id number] [place] [address]- 2542 18 Sep, 2012 [facility] [place] [facility] [address] [id number] [place] [address]- [address]42 17 Sep, 2012 [facility] [place] [facility] [address] [id number] [place] [address]45 17 Sep, 2012 [facility] [place] [facility] [address] [id number] [place] [address]- [address]49 16 Sep, 2012 [facility] [place] [facility] [address] [id number] [place] [address]- 2547 13 Dec, 2012 [facility] [place] [facility] [address] [id number] [place] [address]- 3790 11 Dec, 2012 [facility] [place] [facility] [address] [id number] [place] [address]- 2860 05 Dec, 2012 [facility] [place] [facility] [address] [id number] [place] [address]- 6994 04 Dec, 2012 [facility] [place] [facility] [address] [id number] [place] [address]- 78[address] 30 Nov, 2012 [facility] [place] [facility] [address] [id number] [place] [address]- [address]856 Nov, [facility] [place] [facility] [address] [id number] [place] [address]- [address] Nov, [facility] [place] [facility] [address] [id number] [place] [address]- 9618 Nov, [facility] [place] [facility] [address] [id number] [place] [address]- [address] Nov, [facility] [place] [facility] [address] [id number] [place] [address]- [address] Nov, [facility] [place] [facility] [address] [id number] [place] [address]- [address] Nov, [facility] [place] [facility] [address] [id number] [place] [address]- [address] Oct, [facility] [place] [facility] [address] [id number] [place] [address]- 7044 Oct, [facility] [place] [facility] [address] [id number] [place] [address]- 239[address] Oct, [facility] [place] [facility] [address] [id number] [place] [address]- 1761 Oct, [facility] [place] [facility] [address] [id number] [place] [address]- [address] 15 Oct, 2012 [facility] [place] [facility] [address] [id number] [place] [address]- 3433 Oct, [facility] [address] [id number] [place] [address] 28 Sep, 2012 [facility] [place] [facility] [address] [id number] [place] [address] Sep, [facility] [address] [id number] [place] [address] Sep, [facility] [place] [facility] [address] [id number] [place] [address] 14 Sep, 2012 [facility] [address] [id number] [place] [address] 13 Sep, 2012 [facility] [address] [id number] [place] [address] 95[address] Sep, [facility] [address] [id number] [place] [address] 73[address] Sep, [facility] [address] [id number] [place] [address] Sep, [facility] [address] [id number] [place] [address] Sep, [facility] [address] [id number] [place] [address] August, [facility] [address] [id number] [place] [address] August, [facility] [place] [facility] [address] [id number] [place] [address]272 August, [facility] [place] [facility] [address] [id number] [place] [address] 32[address] August, [facility] [place] [facility] [address] [id number] [place] [address] August, [facility] [place] [facility] [address] [id number] [place] [address] 0[address] August, [facility] [place] [facility] [address] [id number] [place] [address] 7866 August, [facility] [address] [id number] [place] [address] August, [facility] [address] [id number] [place] [address] Jul, [facility] [address] [id number] [place] [address] Jul, [facility] [address] [place] [id number] Jul [facility] [address] [id number] [place] [address] Jun, [facility] [address] [id number] [place] [address] Jun, [facility] [address] [id number] [place] [address] Jun, [facility] [address] [id number] [place] [address] 7280 Jun, [facility] [address] [id number] [place] [address] Jun, [facility] [address] [facility] [id number] [place] [address] Jun, [facility] [address] [id number] [place] [address] May, [facility] [address] [id number] [place] [address] May, [facility] [address] [id number] [place] [address] 25[address] May, [facility] [address] [id number] [place] [address] May, [facility] [address] [id number] [place] [address] May, [facility] [address] [id number] [place] [address] 1684 Apr, [facility] [place] [facility] [address] [id number] [place] [address] Apr, [facility] [place] [facility] [address] [id number] [place] [address] Apr, [facility] [place] [facility] [address] [id number] [place] [address] 8[address] Apr, [facility] [address] [id number] [place] [address]- 6293 Apr, [facility] [address] [id number] [place] [address] 8567 Apr, [facility] [address] [id number] [place] [address] Mar, [facility] [place] [facility] [address] [id number] [place] [address]- 488[address] Mar, [facility] [place] [facility] [address] [id number] [place] [address] 9789 Mar, [facility] [place] [facility] [address] [id number] [place] [address] Mar, [facility] [place] [facility] [address] [id number] [place] [address] 6369 Mar, [facility] [place] [facility] [address] [id number] [address] 18 Mar, 2012 [facility] [place] [facility] [address] [id number] [place] [address] 37[address] 18 Mar, 2012 [facility] [place] [facility] [address] [id number] [place] [address]- 9347 Mar, [facility] [place] [facility] [address] [id number] [place] [address] 10 Mar, 2012 [facility] [place] [facility] [address] [id number] [place] [address]- [address]258 05 Mar, 2012 [facility] [place] [facility] [address] [id number] [place] [address]- 6939 05 Mar, 2012 [facility] [place] [facility] [address] [id number] [place] [address] 9021 Feb, [facility] [place] [facility] [address] [id number] [place] [address] 2073 Feb, [facility] [place] [facility] [address] [id number] [place] [address]- 9023 Feb, [facility] [place] [facility] [address] [id number] [place] [address]- 4392 Feb, [facility] [place] [facility] [address] [id number] [place] [address] 1610 Feb, [facility] [place] [facility] [address] [id number] [place] [address]- 5043 Feb, [facility] [place] [facility] [address] [id number] [place] [address]- 9640 Feb, [facility] [place] [facility] [address] [id number] [place] [address]- 7870 Feb, [facility] [place] [facility] [address] [facility] [id number] [place] [address]- 9766 Feb, [facility] [place] [facility] [address] [id number] [place] [address] 2254 Feb, [facility] [place] [facility] [address] [id number] [address] Feb, [facility] [place] [facility] [address] [id number] [place] [address]- 3473 Jan, [facility] [place] [facility] [address] [facility] [id number] [place] [address]- 2534 Jan, [facility] [place] [facility] [address] [facility] [id number] [address] Jan, [facility] [place] [facility] [address] [id number] [place] [address] Jan, [facility] [place] [facility] [address] [id number] [place] [address]- 0371 Jan, [facility] [place] [facility] [address] [id number] [place] [address]- 5266 Jan, [facility] [place] [facility] [address] [id number] [place] [address]- 6922 Jan, [facility] [place] [facility] [address] [id number] [place] [address]- 2451 24 Dec, 2011 [facility] [place] [facility] [address] [id number] [place] [address]- 4291 17 Dec, 2011 [facility] [place] [facility] [address] [id number] [place] [address]- 3457 13 Dec, 2011 [facility] [place] [facility] [address] [id number] [place] [address]- 7863 12 Dec, 2011 [facility] [place] [facility] [address] [id number] [place] [address]- 3529 Nov, [facility] [place] [facility] [address] [id number] [place] [address]- 3861 Nov, [facility] [place] [facility] [address] [id number] [place] [address]- 9577 17 Nov, 2011 [facility] [place] [facility] [address] [id number] [place] [address]- 0089 15 Nov, 2011 [facility] [place] [facility] [address] [id number] [place] [address]- 5420 14 Nov, 2011 [facility] [place] [facility] [address] [id number] [place] [address]- 8027 13 Nov, 2011 [facility] [place] [facility] [address] [id number] [place] [address]- 5392 10 Nov, 2011 [facility] [place] [facility] [address] [id number] [place] [address]- 0337 Nov, [facility] [place] [facility] [address] [id number] [place] [address]- 2733 Nov, [facility] [place] [facility] [address] [id number] [place] [address]- 7328 Nov, [facility] [place] [facility] [address] [id number] [place] [address]- 7688 Nov, [facility] [place] [facility] [address] [id number] [place] [address]- 5026 Nov, [facility] [place] [facility] [address] [id number] [place] [address]- 4859 Nov, [facility] [place] [facility] [address] [id number] [place] [address]- 0144 Oct, [facility] [place] [facility] [address] [id number] [place] [address]- 9164 Oct, [facility] [place] [facility] [address] [id number] [place] [address]- 5768 Oct, [facility] [place] [facility] [address] [id number] [place] [address]- 2054 Oct, [facility] [place] [facility] [address] [id number] [place] [address]- 4336 Oct, [facility] [place] [facility] [address] [id number] [place] [address]- 0086 Oct, [facility] [place] [facility] [address] [id number] [place] [address]- 6314 Oct, [facility] [place] [facility] [address] [id number] [place] [address]- 6611 Oct, [facility] [place] [facility] [address] [id number] [place] [address]- 1362 Oct, [facility] [place] [facility] [address] [id number] [place] [address]- 0167 Sep, [facility] [place] [facility] [address] [id number] [place] [address]- 7457 Sep, [facility] [address] [id number] [place] [address]- 8313 Sep, [facility] [place] [facility] [address] [id number] [place] [address]- 3706 Sep, [facility] [address] [id number] [place] [address]- 9470 Sep, [facility] [place] [facility] [address] [id number] [place] [address]- 9315 Sep, [facility] [address] [id number] [place] [address]- 7796 Sep, [facility] [address] [id number] [place] [address]- 9412 Sep, [facility] [address] [id number] [place] [address]- 9136 August, [facility] [address] [id number] [place] [address]- 3327 August, [facility] [address] [id number] [place] [address]- 3261 August, [facility] [address] [id number] [place] [address]- 7882 August, [facility] [place] [facility] [address] [id number] [place] [address]- 9981 August, [facility] [address] [id number] [place] [address]- 2321 August, [facility] [place] [facility] [address] [id number] [place] [address]- 6356 August, [facility] [place] [facility] [address] [id number] [place] [address]- 9375 August, [facility] [address] [id number] [place] [address]- 0579 August, [facility] [address] [facility] [id number] [place] [address]- 0269 August, [facility] [address] [facility] [id number] [place] [address]- 8096 August, [facility] [address] [facility] [id number] [place] [address]- 6874 August, [facility] [address] [facility] [id number] [place] [address]- [address]76 Oct, IMMUNIZATIONS No Known Immunizations SOCIAL HISTORY [...] Surgical History bladder surgery Hospitalization History [facility] for right groin pain 05/2011 Hospitalization History Via [facility] for wound on buttocks 08/2012 Hospitalization History Via [facility], hypoxia secondary to pneumonia 12/02-12/09 Hospitalization History Pneumonia, elevated CO2 on Bipap was in ICU 08/2013 Hospitalization History Hypoxia, Exacerbation COPD, Chest pain 09/05/15 [place]ization History [place] ide[place] 12/28 Hospitalization History hypoxia--[facility] 02/13/2016 Hospitalization History shortness of breath at june 2016 Hospitalization History Shortness of breath at august 2016 Hospitalization History SOB, chest pain at 12/2016
--- OUTSIDE RECORDS SUMMARY | 2017-11-24 19:14 | XMS REPORT ---
Author [facility] Address [address] [place] [address] Care Team Providers Care Account Liaison Name Role Phone KELSEY HESSY Unavailable PROBLEMS Type Condition ICD9-CM Code DIH39-CT Code Onset Dates Condition Status SNOMED Code Problem Primary insomnia F51.01 Active 075807577 Problem Type 2 diabetes mellitus with hyperglycemia E11.65 Active 87565534 Problem Major depressive disorder, recurrent, unspecified F33.9 Active 662323736 Problem Acute and chronic respiratory failure with hypoxia J96.21 Active [id number] Problem Microalbuminuria R80.9 Active 733498466 Problem Dysphagia, unspecified type R13.10 Active 48306718 Problem 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 Active 011068583081 Problem Morbid obesity with alveolar hypoventilation E66.2 Active 121131816 Problem Chronic tension-type headache, intractable G44.221 Active 019724118 Problem Type 2 diabetes mellitus with diabetic polyneuropathy E11.42 Active 98453421 Problem MRSA (methicillin resistant Staphylococcus aureus) A49.02 Active 721175784 Problem Recurrent cellulitis L03.90 Active 528314405 Problem Chronic diarrhea K52.9 Active 771570290 Problem Chronic nausea R11.0 Active 566915518 Problem Gastroesophageal reflux disease, esophagitis presence not specified K21.9 Active 583765511 Problem Tinnitus of both ears H93.13 Active 5996389978094 Problem Essential hypertension I10 Active 64545898 Problem Anxiety F41.9 Active 82520914 Problem Lymphedema I89.0 Active 648345433 Problem Hypertriglyceridemia E78.1 Active 013891752 Problem Meralgia paresthetica, unspecified laterality G57.10 Active 31512541 Problem Obstructive sleep apnea G47.33 Active 61291379 Problem Low back pain M54.5 Active [id number] ALLERGIES No Information SOCIAL HISTORY Never Assessed [...] Surgical History bladder surgery Hospitalization History Via [facility] for right groin pain 05/2011 Hospitalization History Via [facility] for wound on buttocks 08/2012 Hospitalization History Via [facility], hypoxia secondary to pneumonia 12/02-12/09 Hospitalization History Pneumonia, elevated CO2 on Bipap was in ICU 08/2013 Hospitalization History Hypoxia, Exacerbation COPD, Chest pain 09/05/15 Hospitalization History [place] ideations[place] 12/28 Hospitalization History hypoxia--[facility] 02/13/2016 Hospitalization History shortness of breath at june 2016 Hospitalization History Shortness of breath at august 2016 Hospitalization History SOB, chest pain at 12/2016
--- OUTSIDE RECORDS SUMMARY | 2017-11-24 19:15 | XMS REPORT ---
Author Author JIMENA [facility]AIN[facility] Address [address] [place] [address] Care Team Providers Care Dance Coach Name Role Phone KELSEY HESSY Unavailable PROBLEMS Type Condition ICD9-CM Code STG34-[place] Code Onset Dates Condition Status SNOMED Code Problem Primary insomnia F51.01 Active 069523503 Problem Type 2 diabetes mellitus with hyperglycemia E11.65 Active 41787152 Problem Major depressive disorder, recurrent, unspecified F33.9 Active 039318365 Problem Acute and chronic respiratory failure with hypoxia J96.21 Active [id number] Problem Microalbuminuria R80.9 Active 763932678 Problem Dysphagia, unspecified type R13.10 Active 53291703 Problem 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 Active 979651851881 Problem Morbid obesity with alveolar hypoventilation E66.2 Active 325649659 Problem Chronic tension-type headache, intractable G44.221 Active 255603374 Problem Type 2 diabetes mellitus with diabetic polyneuropathy E11.42 Active 09849630 Problem MRSA (methicillin resistant Staphylococcus aureus) A49.02 Active 396328201 Problem Recurrent cellulitis L03.90 Active 714079061 Problem Chronic diarrhea K52.9 Active 430723547 Problem Chronic nausea R11.0 Active 410147702 Problem Gastroesophageal reflux disease, esophagitis presence not specified K21.9 Active 982573095 Problem Tinnitus of both ears H93.13 Active 3234860538108 Problem Essential hypertension I10 Active 38483504 Problem Anxiety F41.9 Active 82185539 Problem Lymphedema I89.0 Active 957367093 Problem Hypertriglyceridemia E78.1 Active 697757894 Problem Meralgia paresthetica, unspecified laterality G57.10 Active 27567650 Problem Obstructive sleep apnea G47.33 Active 73082869 Problem Low back pain M54.5 Active 511066380 ALLERGIES No Information SOCIAL HISTORY Never Assessed PLAN OF CARE VITAL SIGNS MEDICATIONS Medication Instructions Dosage Frequency Start Date End Date Duration Status Chlorhexidine 4 as directed Oct, Active RESULTS No Results PROCEDURES No Known [...] Hospitalization History [place] ideations[place] 12/28 Hospitalization History hypoxia--[facility] 02/13/2016 Hospitalization History shortness of breath at june 2016 Hospitalization History Shortness of breath at august 2016
--- OUTSIDE RECORDS SUMMARY | 2017-11-24 19:17 | XMS REPORT ---
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 296.90 [facility] [id number] [place] [address] 89803- 3938 Nov, [facility] [id number] [place] [address] 19916- 7912 Nov, [facility] [id number] [place] [address] 09493- 7055 Nov, [facility] [id number] [place] [address] 25378- 2193 Nov, [facility] [id number] [place] [address] 85703- 3885 Nov, [facility] [id number] [place] [address] 00074- 0354 Nov, Lymphedema 457.1 ; Hyperlipidemia 272.4 ; Essential hypertension, benign 401.1 and Numbness of toes 782.0 [facility] [id number] [place] [address] 11804- 8890 Nov, Episodic mood disorder 296.90 [facility] [address] [address]- 2836 Oct, [facility] [id number] [place] [address] 56346- 1701 Oct, [facility] [address] [facility] [id number] [place] [address]- 1841 Oct, 2014 [facility] [address] [facility] [id number] [place] [address]- 3174 Oct, 2014 [facility] [address] [facility] [id number] [place] [address]- 5292 14 Oct, 2014 [facility] [address] [facility] [id number] [place] [address]- 4698 Oct, 2014 [facility] [address] [facility] [id number] [place] [address]- 8883 Oct, 2014 [facility] [address] [facility] [id number] [place] [address]- 1204 Oct, 2014 [facility] [address] [facility] [id number] [place] [address]- 9628 Oct, Episodic mood disorder 296.90 [facility] [address] [facility] [id number] [place] [address]- 9720 30 Sep, 2014 [facility] [address] [facility] [id number] [place] [address] Sep, [facility] [address] [facility] [id number] [place] [address] Sep, [facility] [address] [facility] [id number] [address] Sep, [facility] [address] [facility] [id number] [address] Sep, [facility] [address] [facility] [id number] [place] [address] Sep, Episodic mood disorder 296.90 [facility] [address] [facility] [id number] [place] [address] Sep, Unspecified episodic mood disorder 296.90 [facility] [address] [id number] [place] [address] Sep, [facility] [id number] [address] Sep, [facility] [id number] [place] [address] Sep, Episodic mood disorder 296.90 [facility] [id number] [place] [address]- [address] Sep, [facility] [id number] [place] [address]- [address] Sep, [facility] [id number] [place] [address]- 6[address] Sep, [facility] [id number] [place] [address]- 4509 Sep, Hematemesis 578.0 and Vomiting 787.03 [facility] [id number] [place] [address]70- 5616 Sep, Episodic mood disorder 296.90 [facility] [id number] [place] [address]- 5649 Sep, [facility] [id number] [place] [address]- 1603 Sep, [facility] [id number] [place] [address]- 9526 Sep, Diabetes mellitus without mention of complication, type II or unspecified type, not stated as uncontrolled 250.00 and Other chronic pain 338.29 [facility] [address] [address] Sep, Episodic mood disorder 296.90 [facility] [id number] [place] [address]83- 8698 Sep, [facility] [id number] [place] [address]56- 3211 Sep, Episodic mood disorder 296.90 [facility] [id number] [place] [address] [place] [address] Sep, [facility] [id number] [address] August, [facility] [id number] [address] August, [facility] [id number] [address] August, Episodic mood disorder 296.90 [facility] [address] [id number] [address] August, [facility] [id number] [place] [address]- [address] August, Unspecified episodic mood disorder 296.90 [facility] [address] [id number] [address] August, Vomiting 787.03 [facility] [address] [id number] [address] August, [facility] [id number] [address] August, [facility] [address]005[address] [address] August, [facility] [address] [address] August, [facility] [address]005[address] [address] August, [facility] [address] [id number] [address] Jul, [facility] [address]005[address] [address] Jul, [facility] [address]005[address] [address] Jul, [facility] [address]005[address] [address] 30 Jun, 2014 [facility] [place] [facility] [address] [id number] [place] [address] 99[address] Jun, [facility] [place] [facility] [address] [id number] [place] [address] 96[address] Jun, [facility] [place] [facility] [address] [id number] [place] [address] 8676 Jun, [facility] [place] [facility] [address] [id number] [place] [address]- [address] Jun, [facility] [place] [facility] [address] [id number] [place] [address]- 8041 Jun, [facility] [place] [facility] [address] [id number] [place] [address]- 1267 Jun, [facility] [place] [facility] [address] [id number] [place] [address]- 6[address] Jun, [facility] [place] [facility] [address] [id number] [place] [address]- 9145 Jun, [facility] [place] [facility] [address] [id number] [place] [address]- 1587 Jun, [facility] [place] [facility] [address] [id number] [place] [address]- 1529 Jun, [facility] [place] [facility] [address] [id number] [place] [address]- 7708 Jun, [facility] [place] [facility] [address] [id number] [place] [address]- 1875 Jun, [facility] [place] [facility] [address] [id number] [place] [address]- 5513 Jun, [facility] [place] [facility] [address] [id number] [place] [address]- 0997 Jun, [facility] [place] [facility] [address] [id number] [place] [address]- 2417 Jun, [facility] [place] [facility] [address] [id number] [place] [address]- 1241 23 Jun, 2014 [facility] [place] [facility] [address] [id number] [place] [address]- 0836 23 Jun, 2014 [facility] [place] [facility] [address] [id number] [place] [address]- 9276 23 Jun, 2014 [facility] [place] [facility] [address] [id number] [place] [address]- 0476 21 Jun, 2014 [facility] [place] [facility] [address] [id number] [place] [address]- 5484 21 Jun, 2014 [facility] [place] [facility] [address] [id number] [place] [address]- 8014 20 Jun, 2014 [facility] [place] [facility] [address] [id number] [place] [address]- 8568 20 Jun, 2014 [facility] [place] [facility] [address] [id number] [place] [address]- 2206 20 Jun, 2014 [facility] [place] [facility] [address] [id number] [place] [address]- 0249 20 Jun, 2014 [facility] [place] [facility] [address] [id number] [place] [address]- 0600 19 Jun, 2014 [facility] [place] [facility] [address] [id number] [place] [address]- 8764 19 Jun, 2014 [facility] [place] [facility] [address] [id number] [place] [address]- 5044 18 Jun, 2014 [facility] [place] [facility] [address] [id number] [place] [address]- 5741 18 Jun, 2014 [facility] [place] [facility] [address] [id number] [place] [address]- 6836 17 Jun, 2014 [facility] [place] [facility] [address] [id number] [place] [address]- 8756 17 Jun, 2014 [facility] [place] [facility] [address] [id number] [place] [address]- 5333 16 Jun, 2014 [facility] [place] [facility] [address] [id number] [place] [address]- 6336 16 Jun, 2014 [facility] [place] [facility] [address] [id number] [place] [address]- 5763 16 Jun, 2014 [facility] [place] [facility] [address] [id number] [place] [address]- 6959 16 Jun, 2014 [facility] [place] [facility] [address] [id number] [place] [address]- 4146 16 Jun, 2014 [facility] [place] [facility] [address] [id number] [place] [address]- 2569 16 Jun, 2014 [facility] [place] [facility] [address] [id number] [place] [address]- 8664 Jun, [facility] [place] [facility] [address] [id number] [place] [address]- 8884 Jun, [facility] [place] [facility] [address] [id number] [place] [address]- 2337 Jun, [facility] [place] [facility] [address] [id number] [place] [address]- 4292 Jun, [facility] [place] [facility] [address] [id number] [place] [address]- 3301 Jun, 2014 [facility] [place] [facility] [address] [id number] [address]- 3967 Jun, 2014 [facility] [place] [facility] [address] [id number] [address]- 6[address] Jun, 2014 [facility] [place] [facility] [address] [id number] [place] [address]- 1204 Jun, 2014 [facility] [place] [facility] [address] [id number] [place] [address]- 8788 Jun, 2014 [facility] [place] [facility] [address] [id number] [place] [address]- 4044 Jun, 2014 [facility] [place] [facility] [address] [id number] [place] [address]- 2454 05 Jun, 2014 [facility] [place] [facility] [address] [id number] [place] [address]- 5716 05 Jun, 2014 [facility] [place] [facility] [address] [id number] [place] [address] Jun, [facility] [place] [facility] [address] [facility] [id number] [place] [address]- 1629 Jun, [facility] [place] [facility] [address] [id number] [place] [address]- 9677 Jun, [facility] [place] [facility] [address] [id number] [place] [address]- 1765 Jun, [facility] [place] [facility] [address] [facility] [id number] [place] [address]- 5791 Jun, [facility] [place] [facility] [address] [facility] [id number] [place] [address]- 3743 Jun, 2014 [facility] [place] [facility] [address] [facility] [id number] [place] [address]- 3903 Jun, [facility] [place] [facility] [address] [facility] [id number] [place] [address]- 5382 Jun, [facility] [place] [facility] [address] [facility] [id number] [place] [address]- 1104 May, 2014 [facility] [place] [facility] [address] [facility] [id number] [place] [address]- 6458 May, 2014 [facility] [place] [facility] [address] [facility] [id number] [place] [address]- 8515 May, [facility] [place] [facility] [address] [id number] [place] [address] May, 2014 [facility] [place] [facility] [address] [facility] [id number] [place] [address]- 4203 May, [facility] [place] [facility] [address] [facility] [id number] [place] [address]- 9126 May, [facility] [place] [facility] [address] [id number] [place] [address]- 1972 May, 2014 [facility] [place] [facility] [address] [facility] [id number] [place] [address]- 3140 20 May, 2014 [facility] [place] [facility] [address] [facility] [id number] [place] [address]- 1069 20 May, 2014 [facility] [place] [facility] [address] [facility] [id number] [place] [address]- 0335 May, 2014 [facility] [place] [facility] [address] [facility] [id number] [place] [address]- 6298 18 May, 2014 [facility] [place] [facility] [address] [facility] [id number] [place] [address]- 6220 18 May, 2014 [facility] [place] [facility] [address] [id number] [place] [address]- 2515 13 May, 2014 [facility] [place] [facility] [address] [facility] [id number] [place] [address]- 7031 13 May, 2014 [facility] [place] [facility] [address] [facility] [id number] [place] [address]- 4887 May, 2014 [facility] [place] [facility] [address] [facility] [id number] [place] [address]- 2907 May, 2014 [facility] [place] [facility] [address] [facility] [id number] [place] [address]- 5442 May, 2014 [facility] [place] [facility] [address] [facility] [id number] [address]- 8343 May, 2014 [facility] [place] [facility] [address] [facility] [id number] [place] [address]- 1588 09 May, 2014 [facility] [place] [facility] [address] [facility] [id number] [address]- 4686 09 May, 2014 [facility] [place] [facility] [address] [facility] [id number] [address]- 1076 May, 2014 [facility] [place] [facility] [address] [id number] [place] [address]- 5179 May, 2014 [facility] [place] [facility] [address] [id number] [place] [address]- 9344 May, [facility] [place] [facility] [address] [id number] [place] [address]- 4365 May, 2014 [facility] [place] [facility] [address] [id number] [place] [address]- 0701 May, [facility] [place] [facility] [address] [id number] [place] [address]- 6092 May, [facility] [place] [facility] [address] [id number] [place] [address]- 0846 May, [facility] [place] [facility] [address] [id number] [place] [address]- 6707 Apr, [facility] [place] [facility] [address] [id number] [place] [address]- 1748 Apr, [facility] [place] [facility] [address] [id number] [place] [address]- 9533 Apr, [facility] [place] [facility] [address] [id number] [place] [address]- 9624 Apr, [facility] [place] [facility] [address] [id number] [address]- 2718 Apr, [facility] [place] [facility] [address] [id number] [address]- 4835 Apr, [facility] [place] [facility] [address] [id number] [place] [address]- 6558 Apr, [facility] [place] [facility] [address] [id number] [place] [address]- 5735 Apr, [facility] [place] [facility] [address] [id number] [place] [address]- 2996 Apr, [facility] [place] [facility] [address] [id number] [place] [address]- 6693 15 Apr, 2014 [facility] [address] [id number] [place] [address]- 3586 Apr, [facility] [place] [facility] [address] [id number] [place] [address]- 0101 Apr, [facility] [place] [facility] [address] [id number] [place] [address]- 5446 Apr, [facility] [place] [facility] [address] [id number] [place] [address]- 0582 Apr, [facility] [place] [facility] [address] [id number] [place] [address]- 0139 Apr, [facility] [place] [facility] [address] [id number] [place] [address]- 4015 Apr, [facility] [place] [facility] [address] [id number] [place] [address]- 1501 Apr, [facility] [place] [facility] [address] [id number] [place] [address]- 1088 Apr, [facility] [place] [facility] [address] [id number] [place] [address]- 9366 Apr, [facility] [place] [facility] [address] [id number] [place] [address]- 2614 Apr, [facility] [place] [facility] [address] [id number] [place] [address]- 9540 Mar, [facility] [place] [facility] [address] [id number] [place] [address]- 7526 Mar, [facility] [place] [facility] [address] [id number] [place] [address]- 8934 Mar, [facility] [place] [facility] [address] [id number] [place] [address]- 0255 Mar, [facility] [place] [facility] [address] [id number] [place] [address]- 0689 Mar, [facility] [place] [facility] [address] [id number] [place] [address]- 7824 Mar, [facility] [place] [facility] [address] [id number] [place] [address]- 4685 Mar, [facility] [place] [facility] [address] [id number] [place] 0418 Mar, [facility] [place] [facility] [address] [id number] [place] [address]- 5532 15 Mar, 2014 [facility] [place] [facility] [address] [id number] [place] [address]- 9554 15 Mar, 2014 [facility] [place] [facility] [address] [id number] [place] [address]- 0928 Mar, [facility] [place] [facility] [address] [id number] [place] [address]- 3299 Mar, [facility] [place] [facility] [address] [id number] [place] [address]- 5934 Mar, [facility] [place] [facility] [address] [id number] [place] [address]- 2903 Mar, [facility] [place] [facility] [address] [id number] [place] [address]- 3266 Mar, [facility] [place] [facility] [address] [id number] [place] [address]- 6945 Mar, [facility] [place] [facility] [address] [id number] [place] [address]- 9322 Feb, [facility] [place] [facility] [address] [id number] [place] [address]- 0619 Feb, [facility] [place] [facility] [address] [id number] [place] [address]- 4962 Feb, [facility] [place] [facility] [address] [id number] [place] [address]- 6065 Feb, [facility] [place] [facility] [address] [id number] [address]- 7651 20 Feb, 2014 [facility] [place] [facility] [address] [id number] [place] [address]- 3314 19 Feb, 2014 [facility] [place] [facility] [address] [id number] [place] [address]- 6447 19 Feb, 2014 [facility] [place] [facility] [address] [id number] [place] [address]- 5059 18 Feb, 2014 [facility] [place] [facility] [address] [id number] [place] [address]- 1372 18 Feb, 2014 [facility] [place] [facility] [address] [id number] [place] [address]- 2255 17 Feb, 2014 [facility] [place] [facility] [address] [id number] [place] [address]- 4796 17 Feb, 2014 [facility] [place] [facility] [address] [id number] [place] [address]- 1194 17 Feb, 2014 [facility] [place] [facility] [address] [id number] [place] [address]- 7393 17 Feb, 2014 [facility] [place] [facility] [address] [id number] [place] [address]- 5264 14 Feb, 2014 [facility] [place] [facility] [address] [id number] [place] [address]- 7020 14 Feb, 2014 [facility] [place] [facility] [address] [id number] [address]- 9438 14 Feb, 2014 [facility] [place] [facility] [address] [id number] [address]- 6230 14 Feb, 2014 [facility] [place] [facility] [address] [id number] [place] [address]- 6328 10 Feb, 2014 [facility] [place] [facility] [address] [id number] [place] [address]- 1642 10 Feb, 2014 [facility] [place] [facility] [address] [id number] [address]- 3154 04 Feb, 2014 [facility] [place] [facility] [address] [id number] [place] [address]- 2145 Feb, [facility] [place] [facility] [address] [id number] [place] [address]- 5633 Jan, [facility] [place] [facility] [address] [id number] [place] [address]- 6015 Jan, [facility] [place] [facility] [address] [id number] [place] [address]- 1695 Jan, [facility] [place] [facility] [address] [id number] [place] [address]- 0290 Jan, [facility] [place] [facility] [address] [id number] [place] [address]- 6283 Jan, [facility] [place] [facility] [address] [id number] [place] [address]- 1779 Jan, [facility] [place] [facility] [address] [id number] [place] [address]- 8028 Jan, [facility] [place] [facility] [address] [id number] [place] [address]- 7017 Jan, [facility] [place] [facility] [address] [id number] [place] [address]- 2467 Jan, [facility] [place] [facility] [address] [id number] [place] [address]- 3839 Jan, [facility] [place] [facility] [address] [id number] [place] [address]- 5116 Jan, [facility] [place] [facility] [address] [id number] [place] [address]- 5265 Jan, [facility] [place] [facility] [address] [id number] [place] [address]- 1907 Jan, [facility] [place] [facility] [address] [id number] [place] [address]- 0380 Jan, 2013 [facility] [place] [facility] [address] [id number] [place] [address]- 8852 15 Jan, 2014 [facility] [place] [facility] [address] [id number] [place] [address]- 8180 15 Jan, 2014 [facility] [place] [facility] [address] [id number] [place] [address]- 3844 14 Jan, 2014 [facility] [place] [facility] [address] [id number] [place] [address]- 2433 14 Jan, 2014 [facility] [place] [facility] [address] [id number] [place] [address]- 2088 Jan, [facility] [place] [facility] [address] [id number] [place] [address]- 1130 Jan, [facility] [place] [facility] [address] [id number] [place] [address]- 0156 Jan, [facility] [place] [facility] [address] [id number] [place] [address]- 6058 Jan, [facility] [place] [facility] [address] [id number] [place] [address]- 1570 10 Jan, 2014 [facility] [place] [facility] [address] [id number] [place] [address]- 7000 02 Jan, 2014 [facility] [place] [facility] [address] [id number] [place] [address]- 8025 02 Jan, 2014 [facility] [place] [facility] [address] [id number] [place] [address]- 2709 25 Dec, 2013 [facility] [place] [facility] [address] [id number] [address]- 9213 25 Dec, 2013 [facility] [place] [facility] [address] [id number] [place] [address]- 5583 23 Dec, 2013 [facility] [place] [facility] [address] [id number] [place] [address]- 5790 23 Dec, 2013 [facility] [place] [facility] [address] [id number] [address]- 4294 19 Dec, 2013 [facility] [place] [facility] [address] [id number] [address]- 8339 19 Sep, 2013 [facility] [place] [facility] [address] [id number] [place] [address]- 4468 17 Sep, 2013 [facility] [place] [facility] [address] [id number] [place] [address]- 4856 17 Dec, 2013 [facility] [place] [facility] [address] [id number] [place] [address]- 3687 09 Sep, 2013 [facility] [place] [facility] [address] [id number] [place] [address]- 6285 09 Sep, 2013 [facility] [place] [facility] [address] [id number] [place] [address]- 9104 08 Sep, 2013 [facility] [place] [facility] [address] [id number] [place] [address]- 3813 08 Dec, 2013 [facility] [place] [facility] [address] [id number] [place] [address]- 6837 Dec, 2013 [facility] [place] [facility] [address] [id number] [place] [address]- 3147 Dec, 2013 [facility] [place] [facility] [address] [id number] [place] [address]- 3345 Dec, 2013 [facility] [place] [facility] [address] [id number] [place] [address]- 6788 Dec, 2013 [facility] [place] [facility] [address] [id number] [place] [address] Dec, 2013 [facility] [place] [facility] [address] [id number] [place] [address] Dec, 2013 [facility] [place] [facility] [address] [id number] [place] [address]70 Nov, [facility] [place] [facility] [address] [id number] [place] [address] 90[address] Nov, [facility] [place] [facility] [address] [id number] [place] [address]60 Nov, [facility] [place] [facility] [address] [id number] [place] [address]163 Nov, [facility] [place] [facility] [address] [id number] [place] [address] 115[address] Nov, [facility] [place] [facility] [address] [id number] [place] [address] Nov, [facility] [place] [facility] [address] [id number] [place] [address] 15[address] Nov, [facility] [place] [facility] [address] [id number] [place] [address] Nov, [facility] [place] [facility] [address] [id number] [place] [address] Nov, [facility] [place] [facility] [address] [id number] [place] [address] 268[address] Nov, [facility] [place] [facility] [address] [id number] [place] [address] 1985 Nov, [facility] [place] [facility] [address] [id number] [place] [address] 1693 Nov, [facility] [place] [facility] [address] [id number] [place] [address] 2867 Oct, [facility] [place] [facility] [address] [id number] [place] [address] 8931 Oct, [facility] [place] [facility] [address] [id number] [place] [address] 2096 Oct, [facility] [place] [facility] [address] [id number] [place] [address]105 Oct, [facility] [place] [facility] [address] [id number] [place] [address]293 Oct, [facility] [place] [facility] [address] [id number] [place] [address] 0343 Oct, [facility] [place] [facility] [address] [id number] [place] [address]- 6[address] Oct, [facility] [place] [facility] [address] [id number] [place] [address]- 1274 23 Oct, 2013 [facility] [place] [facility] [address] [id number] [place] [address] 2006 Oct, [facility] [place] [facility] [address] [id number] [place] [address] 4897 Oct, [facility] [place] [facility] [address] [id number] [place] [address]- 7651 16 Oct, 2013 [facility] [place] [facility] [address] [id number] [place] [address]- 78[address] 16 Oct, 2013 [facility] [place] [facility] [address] [id number] [place] [address]- [address]25 14 Oct, 2013 [facility] [place] [facility] [address] [id number] [place] [address] 7821 Oct, [facility] [place] [facility] [address] [id number] [place] [address]- 1560 Oct, [facility] [place] [facility] [address] [id number] [place] [address] 9107 Oct, [facility] [place] [facility] [address] [id number] [place] [address] 0333 Oct, [facility] [place] [facility] [address] [id number] [place] [address] 2251 Sep, [facility] [place] [facility] [address] [id number] [place] [address]- 9042 Sep, [facility] [place] [facility] [address] [id number] [place] [address]- 0678 Sep, [facility] [place] [facility] [address] [id number] [place] [address]- 5753 Sep, [facility] [place] [facility] [address] [id number] [place] [address]- 7024 18 Sep, 2013 [facility] [place] [facility] [address] [id number] [place] [address] 6914 18 Sep, 2013 [facility] [place] [facility] [address] [id number] [place] [address]- 0778 17 Sep, 2013 [facility] [place] [facility] [address] [id number] [place] [address]- 1761 17 Sep, 2013 [facility] [place] [facility] [address] [id number] [place] [address] 7697 Sep, [facility] [place] [facility] [address] [id number] [place] [address]- [address] Sep, [facility] [place] [facility] [address] [id number] [place] [address]- 2529 Sep, [facility] [place] [facility] [address] [id number] [place] [address]- 0462 Sep, [facility] [place] [facility] [address] [id number] [place] [address] 9126 Sep, [facility] [place] [facility] [address] [id number] [place] [address]- 0137 Sep, [facility] [place] [facility] [address] [id number] [place] [address]- 0450 Sep, [facility] [place] [facility] [address] [id number] [place] [address]- 2730 09 Sep, 2013 [facility] [place] [facility] [address] [id number] [place] [address]- 5848 07 Sep, 2013 [facility] [place] [facility] [address] [id number] [place] [address]- 1611 07 Sep, 2013 [facility] [place] [facility] [address] [id number] [place] [address]- 1704 05 Sep, 2013 [facility] [place] [facility] [address] [id number] [place] [address]- 1028 05 Sep, 2013 [facility] [place] [facility] [address] [id number] [place] [address]- 7845 03 Sep, 2013 [facility] [place] [facility] [address] [id number] [place] [address]- 2309 Sep, [facility] [place] [facility] [address] [id number] [place] [address]- 6[address] August, [facility] [place] [facility] [address] [id number] [place] [address] 9920 August, [facility] [place] [facility] [address] [id number] [place] [address]- 3286 August, [facility] [place] [facility] [address] [id number] [place] [address]- 9580 August, [facility] [place] [facility] [address] [id number] [place] [address]- 9055 August, [facility] [place] [facility] [address] [id number] [place] [address] 0808 August, [facility] [place] [facility] [address] [id number] [place] [address]- 7228 August, [facility] [place] [facility] [address] [id number] [place] [address]- 1747 August, [facility] [place] [facility] [address] [id number] [place] [address]- 3616 August, [facility] [place] [facility] [address] [id number] [place] [address]- 9249 August, [facility] [place] [facility] [address] [id number] [place] [address]- 8120 August, [facility] [place] [facility] [address] [id number] [place] [address]- 6129 Jul, [facility] [place] [facility] [address] [id number] [place] [address]- 7307 Jul, [facility] [place] [facility] [address] [id number] [place] [address]- 3994 Jul, [facility] [place] [facility] [address] [id number] [place] [address]- 5914 Jul, [facility] [place] [facility] [address] [id number] [place] [address]- 9258 Jul, [facility] [place] [facility] [address] [id number] [place] [address]- 9478 Jul, [facility] [place] [facility] [address] [id number] [place] [address]- 1763 Jul, [facility] [place] [facility] [address] [id number] [place] [address]- 5072 Jul, [facility] [place] [facility] [address] [address] [id number] [place] [address] Jul, [facility] [place] [facility] [address] [id number] [place] [address] Jul, [facility] [place] [facility] [address] [id number] [place] [address] 4481 16 Jul, 2013 [facility] [place] [facility] [address] [id number] [place] [address] 8763 14 Jul, 2013 [facility] [place] [facility] [address] [id number] [place] [address]- 8938 14 Jul, 2013 [facility] [place] [facility] [address] [id number] [place] [address] 2253 Jul, [facility] [place] [facility] [address] [id number] [place] [address] 7718 Jul, [facility] [place] [facility] [address] [id number] [place] [address]- 2141 10 Jul, 2013 [facility] [place] [facility] [address] [id number] [place] [address] 0538 Jul, [facility] [place] [facility] [address] [id number] [place] [address]- 5247 05 Jul, 2013 [facility] [place] [facility] [address] [id number] [place] [address] 5097 Jul, [facility] [place] [facility] [address] [id number] [place] [address] 0927 Jul, [facility] [address] [id number] [place] [address] 4195 Jul, [facility] [place] [facility] [address] [id number] [place] [address]26 Jul, [facility] [address] [id number] [place] [address]- 2724 Jul, [facility] [place] [facility] [address] [id number] [place] [address] 5523 Jun, [facility] [address] [id number] [place] [address] 2615 Jun, [facility] [address] [id number] [place] [address]- 4188 Jun, [facility] [place] [facility] [address] [id number] [place] [address]- 6275 Jun, [facility] [address] [id number] [place] [address]- 4289 Jun, [facility] [place] [facility] [address] [id number] [place] [address]- 7997 Jun, [facility] [address] [id number] [place] [address] 3839 Jun, [facility] [place] [facility] [address] [id number] [place] [address]- 8898 Jun, [facility] [place] [facility] [address] [id number] [place] [address]- 9075 Jun, [facility] [place] [facility] [address] [id number] [place] [address]- 1837 Jun, [facility] [place] [facility] [address] [id number] [place] [address]- 0176 Jun, [facility] [place] [facility] [address] [id number] [place] [address]- 9825 Jun, [facility] [place] [facility] [address] [id number] [place] [address]- 0283 May, [facility] [place] [facility] [address] [id number] [place] [address] 2396 May, [facility] [place] [facility] [address] [id number] [place] [address]- 2890 Apr, [facility] [place] [facility] [address] [id number] [place] [address]- 5845 Apr, [facility] [place] [facility] [address] [id number] [place] [address]- 6134 Apr, [facility] [place] [facility] [address] [id number] [place] [address]- 6954 Apr, [facility] [place] [facility] [address] [id number] [place] [address]- 7996 Apr, [facility] [place] [facility] [address] [id number] [place] [address]- 5623 Apr, [facility] [place] [facility] [address] [id number] [place] [address]- 0846 Apr, [facility] [place] [facility] [address] [id number] [place] [address]- 8512 Apr, [facility] [place] [facility] [address] [id number] [place] [address]- 5920 Apr, [facility] [place] [facility] [address] [id number] [place] [address]- 2099 Apr, [facility] [place] [facility] [address] [id number] [place] [address]- 7873 Apr, [facility] [place] [facility] [address] [id number] [place] [address]- 9836 Mar, [facility] [place] [facility] [address] [id number] [place] [address]- 1436 Mar, [facility] [place] [facility] [address] [id number] [address] Mar, [facility] [address] [id number] [place] [address]- 4980 Mar, [facility] [place] [facility] [address] [id number] [address] 8159 Feb, [facility] [place] [facility] [address] [id number] [place] [address]- 6306 Feb, [facility] [place] [facility] [address] [id number] [place] [address]- 72[address] Feb, [facility] [place] [facility] [address] [id number] [place] [address]- 5400 Feb, [facility] [place] [facility] [address] [id number] [address]- 3265 Feb, [facility] [address] [id number] [place] [address]- 3629 Feb, [facility] [place] [facility] [address] [id number] [place] [address]- 6077 Feb, [facility] [place] [facility] [address] [id number] [place] [address]- 4633 Feb, [facility] [place] [facility] [address] [facility] [id number] [address]- 5428 Feb, [facility] [place] [facility] [address] [id number] [place] [address]- 7111 Feb, [facility] [place] [facility] [address] [id number] [place] [address]- 6746 Feb, [facility] [place] [facility] [address] [id number] [place] [address]- 8729 Jan, [facility] [place] [facility] [address] [id number] [place] [address]- 5528 Jan, [facility] [place] [facility] [address] [id number] [place] [address]- 5634 Jan, [facility] [place] [facility] [address] [id number] [place] [address]- 7515 11 Jan, 2012 [facility] [place] [facility] [address] [id number] [place] [address]- 9486 10 Jan, 2012 [facility] [place] [facility] [address] [id number] [place] [address] 2546 10 Jan, 2012 [facility] [place] [facility] [address] [id number] [place] [address] 2546 03 Jan, 2012 [facility] [place] [facility] [address] [id number] [place] [address] 2544 02 Jan, 2012 [facility] [place] [facility] [address] [id number] [place] [address]- 6169 30 Sep, 2012 [facility] [place] [facility] [address] [id number] [place] [address]- 7911 25 Sep, 2012 [facility] [place] [facility] [address] [id number] [place] [address]- 3209 18 Sep, 2012 [facility] [place] [facility] [address] [id number] [place] [address] 2540 17 Sep, 2012 [facility] [place] [facility] [address] [id number] [place] [address] 2548 17 Sep, 2012 [facility] [place] [facility] [address] [id number] [place] [address] 254 16 Sep, 2012 [facility] [place] [facility] [address] [id number] [place] [address]- 254 13 Sep, 2012 [facility] [place] [facility] [address] [id number] [place] [address] 2541 11 Sep, 2012 [facility] [place] [facility] [address] [id number] [place] [address] 2546 05 Sep, 2012 [facility] [place] [facility] [address] [id number] [place] [address] 2545 04 Sep, 2012 [facility] [place] [facility] [address] [id number] [place] [address]- 1518 Nov, [facility] [place] [facility] [address] [id number] [place] [address]- 6671 Nov, [facility] [place] [facility] [address] [id number] [place] [address]- 3201 Nov, [facility] [place] [facility] [address] [id number] [place] [address]- 1802 Nov, [facility] [place] [facility] [address] [id number] [place] [address]- 0379 Nov, [facility] [place] [facility] [address] [id number] [place] [address]- 3386 Nov, [facility] [place] [facility] [address] [id number] [place] [address]- 3321 Nov, [facility] [place] [facility] [address] [id number] [place] [address]- 0251 Oct, [facility] [place] [facility] [address] [id number] [place] [address]- 5089 Oct, [facility] [place] [facility] [address] [id number] [place] [address]- 6475 Oct, [facility] [place] [facility] [address] [id number] [place] [address]- 6898 Oct, [facility] [place] [facility] [address] [id number] [place] [address]- 5187 Oct, [facility] [place] [facility] [address] [id number] [place] [address]- 7075 Oct, [facility] [place] [facility] [address] [id number] [place] [address]- 3911 Sep, [facility] [place] [facility] [address] [id number] [place] [address]- 8664 Sep, [facility] [place] [facility] [address] [id number] [place] [address]- 3253 Sep, [facility] [place] [facility] [address] [id number] [place] [address]- 3056 14 Sep, 2012 [facility] [address] [id number] [place] [address]- 7654 13 Sep, 2012 [facility] [address] [id number] [place] [address]- 0971 10 Sep, 2012 [facility] [address] [id number] [place] [address]- 7784 07 Sep, 2012 [facility] [address] [id number] [place] [address]- 6061 Sep, [facility] [address] [id number] [place] [address]- 3720 Sep, [facility] [address] [id number] [place] [address]- 2589 August, [facility] [address] [id number] [place] [address]- 3891 August, [facility] [address] [id number] [place] [address]- 1076 August, [facility] [address] [id number] [place] [address]- 8119 August, [facility] [address] [id number] [place] [address]- 2392 August, [facility] [address] [id number] [place] [address]- 6349 August, [facility] [address] [id number] [place] [address]- 7745 August, [facility] [address] [id number] [place] [address]- 3951 August, [facility] [address] [id number] [place] [address]- 6098 Jul, [facility] [address] [id number] [place] [address]- 7963 Jul, [facility] [address] [place] [id number] [address] [facility] [address] [id number] [place] [address]- 5980 Jun, [facility] [address] [id number] [place] [address]- 2211 Jun, [facility] [address] [id number] [place] [address]- 4513 Jun, [facility] [address] [id number] [place] [address]- 5361 Jun, [facility] [address] [id number] [place] [address]- 3690 Jun, [facility] [address] [id number] [place] [address]- 9424 Jun, [facility] [address] [id number] [place] [address]- 1206 May, [facility] [address] [id number] [place] [address]- 2940 May, [facility] [address] [id number] [place] [address]- 5102 May, [facility] [address] [id number] [place] [address]- 3294 May, [facility] [address] [id number] [place] [address]- 5846 May, [facility] [address] [id number] [place] [address]- 8210 Apr, [facility] [address] [id number] [place] [address]- 9424 Apr, [facility] [address] [id number] [place] [address]- 2388 Apr, [facility] [address] [id number] [place] [address]- 0595 Apr, [facility] [place] [facility] [address] [id number] [place] [address]- 0872 Apr, [facility] [place] [facility] [address] [id number] [place] [address]- 3596 Apr, [facility] [place] [facility] [address] [id number] [place] [address]- 1306 Mar, [facility] [place] [facility] [address] [id number] [place] [address]- 8878 Mar, [facility] [place] [facility] [address] [id number] [place] [address]- 6994 Mar, [facility] [place] [facility] [address] [id number] [place] [address]- 1417 Mar, [facility] [place] [facility] [address] [id number] [place] [address]- 5987 Mar, [facility] [place] [facility] [address] [id number] [place] [address]- 0168 Mar, [facility] [place] [facility] [address] [id number] [place] [address]- 8307 Mar, [facility] [place] [facility] [address] [id number] [place] [address]- 3347 Mar, [facility] [place] [facility] [address] [id number] [place] [address]- 0085 Mar, [facility] [place] [facility] [address] [id number] [place] [address]- 1121 05 Mar, 2012 [facility] [place] [facility] [address] [id number] [place] [address]- 3736 Mar, [facility] [place] [facility] [address] [id number] [place] [address]- 2535 Feb, [facility] [place] [facility] [address] [id number] [place] [address]- 0646 Feb, [facility] [place] [facility] [address] [id number] [place] [address]- 1299 Feb, [facility] [place] [facility] [address] [id number] [place] [address]- 8685 Feb, [facility] [place] [facility] [address] [id number] [place] [address]- 0981 Feb, [facility] [place] [facility] [address] [id number] [place] [address]- 4679 Feb, [facility] [place] [facility] [address] [id number] [place] [address]- 3955 Feb, [facility] [place] [facility] [address] [id number] [place] [address]- 2816 Feb, [facility] [place] [facility] [address] [id number] [place] [address]- 5088 Feb, [facility] [place] [facility] [address] [facility] [id number] [place] [address]- 0538 Feb, [facility] [place] [facility] [address] [id number] [place] [address]- 7215 Feb, [facility] [place] [facility] [address] [id number] [place] [address]- 4339 Jan, [facility] [place] [facility] [address] [id number] [place] [address]- 1785 Jan, [facility] [place] [facility] [address] [id number] [place] [address]- 8688 Jan, [facility] [place] [facility] [address] [id number] [place] [address]- 3397 Jan, [facility] [place] [facility] [address] [id number] [place] [address]- 5309 Jan, [facility] [place] [facility] [address] [facility] [id number] [place] [address]- 1729 Jan, [facility] [place] [facility] [address] [id number] [place] [address]- 2085 Jan, [facility] [place] [facility] [address] [id number] [place] [address]- 7665 24 Dec, 2011 [facility] [place] [facility] [address] [id number] [place] [address]- 0887 17 Dec, 2011 [facility] [place] [facility] [address] [id number] [place] [address]- 4523 13 Dec, 2011 [facility] [place] [facility] [address] [id number] [place] [address]- 4819 12 Dec, 2011 [facility] [place] [facility] [address] [id number] [place] [address]- 1233 23 Nov, 2011 [facility] [place] [facility] [address] [id number] [place] [address]- 9782 Nov, [facility] [place] [facility] [address] [id number] [place] [address]- 8136 17 Nov, 2011 [facility] [place] [facility] [address] [id number] [place] [address]- 5337 15 Nov, 2011 [facility] [place] [facility] [address] [id number] [place] [address]- 5382 14 Nov, 2011 [facility] [place] [facility] [address] [id number] [place] [address]- 8018 Nov, [facility] [place] [facility] [address] [id number] [place] [address]- 2363 Nov, [facility] [place] [facility] [address] [id number] [place] [address]- 8265 Nov, [facility] [place] [facility] [address] [id number] [place] [address]- 9818 Nov, [facility] [place] [facility] [address] [id number] [place] [address]- 4278 Nov, [facility] [place] [facility] [address] [id number] [place] [address]- 8485 Nov, [facility] [place] [facility] [address] [id number] [place] [address]- 7233 Nov, [facility] [place] [facility] [address] [id number] [place] [address]- 6247 Nov, [facility] [place] [facility] [address] [id number] [place] Oct, [facility] [place] [facility] [address] [id number] [place] [address]- 8990 Oct, [facility] [place] [facility] [address] [id number] [place] [address]- 2692 Oct, [facility] [place] [facility] [address] [id number] [place] [address]- 1110 Oct, [facility] [place] [facility] [address] [id number] [place] [address]- 9185 Oct, [facility] [place] [facility] [address] [id number] [place] [address]- 9897 Oct, [facility] [place] [facility] [address] [id number] [place] [address]- 3534 Oct, [facility] [place] [facility] [address] [id number] [place] [address]- 3063 Oct, [facility] [place] [facility] [address] [id number] [place] [address]- 0674 Oct, [facility] [place] [facility] [address] [id number] [place] [address]- 5140 Sep, [facility] [place] [facility] [address] [id number] [place] [address]- 6888 Sep, [facility] [place] [facility] [address] [id number] [place] [address]- 5917 Sep, [facility] [place] [facility] [address] [id number] [place] [address]- 0521 Sep, [facility] [place] [facility] [address] [id number] [place] [address]- 0471 Sep, [facility] [place] [facility] [address] [id number] [place] [address]- 3084 Sep, [facility] [address] [id number] [place] [address]- 3352 Sep, [facility] [place] [facility] [address] [id number] [place] [address]- 6676 Sep, [facility] [address] [id number] [place] [address]- 7769 August, [facility] [place] [facility] [address] [id number] [place] [address]- 5496 August, [facility] [address] [id number] [place] [address]- 1851 August, [facility] [address] [id number] [place] [address]- 6228 August, [facility] [address] [id number] [place] [address]- 6945 August, [facility] [address] [id number] [place] [address]- 6666 August, [facility] [address] [id number] [place] [address]- 1146 August, [facility] [address] [id number] [place] [address] August, [facility] [place] [facility] [address] [id number] [place] [address] August, [facility] [place] [facility] [address] [id number] [place] [address] August, [facility] [place] [facility] [address] [id number] [place] [address] August, [facility] [place] [facility] [address] [id number] [place] [address] August, [facility] [place] [facility] [address] [id number] [place] [address] Oct, IMMUNIZATIONS No Known Immunizations SOCIAL HISTORY Never Assessed REASON FOR VISIT Phone call PLAN OF CARE VITAL SIGNS MEDICATIONS [...] Surgical History bladder surgery Hospitalization History [facility] for right groin pain 05/2011 Hospitalization History [facility] for wound on buttocks 08/2012 Hospitalization History [facility], hypoxia secondary to pneumonia 12/02-12/09 Hospitalization History Pneumonia, elevated CO2 on Bipap was in ICU 08/2013 Hospitalization History Hypoxia, Exacerbation COPD, Chest pain 09/05/15 Hospitalization History suicidal ideations-[place] 12/28 Hospitalization History hypoxia--[facility] 02/13/2016 Hospitalization History shortness of breath at june 2016 Hospitalization History Shortness of breath at august 2016 Hospitalization History SOB, chest pain at 12/2016
[2017-11-24 19:18] LABS: ALANINE AMINOTRANSFERASE 11 U/L (0-55); ALBUMIN 3.6 GM/DL (3.2-4.5); ALKALINE PHOSPHATASE 102 U/L (40-136); BILIRUBIN,TOTAL 0.2 MG/DL (0.1-1.0); BUN/CREATININE RATIO 26; CALCIUM 9.2 MG/DL (8.5-10.1); CARBON DIOXIDE 29 MMOL/L (21-32); CHLORIDE 98 MMOL/L (98-107); CREATININE SERUM 0.78 MG/DL (0.60-1.30); GFR ESTIMATED > 60; GLUCOSE 174 MG/DL (70-105); POTASSIUM 3.8 MMOL/L (3.6-5.0); SALICYLATE < 5.0 MG/DL (5.0-20.0); SODIUM 137 MMOL/L (135-145); TOTAL PROTEIN 7.1 GM/DL (6.4-8.2)
[2017-11-24 19:19] LABS: ACETAMINOPHEN < 10 UG/ML (10-30)
[2017-11-24] MEDS ORDERED: LORazepam 1 MG (ATIVAN) TAB PO ONE (20:00)
[2017-11-24 21:03] VITALS: BP 156/77
== END 2017-11-24 21:06 | disposition home or self-care (01) ==
LOC: EDUNIT# 17:13 → ER 17:14
DX: F32.9 Major depressive disorder, single episode, unspecified (principal); R45.851 Suicidal ideations; J44.9 Chronic obstructive pulmonary disease, unspecified; G47.30 Sleep apnea, unspecified; E78.00 Pure hypercholesterolemia, unspecified; I10 Essential (primary) hypertension; K21.9 Gastro-esophageal reflux disease without esophagitis; E11.9 Type 2 diabetes mellitus without complications; F41.9 Anxiety disorder, unspecified; Z87.19 Personal history of other diseases of the digestive system; Z80.0 Family history of malignant neoplasm of digestive organs; Z82.49 Family history of ischemic heart disease and other diseases of the circulatory system; Z87.440 Personal history of urinary (tract) infections; Z91.19 Patient's noncompliance with other medical treatment and regimen; Z87.891 Personal history of nicotine dependence; Z90.89 Acquired absence of other organs; Z79.51 Long term (current) use of inhaled steroids; Z79.82 Long term (current) use of aspirin; Z79.4 Long term (current) use of insulin; Z91.5 Personal history of self-harm
CPT/HCPCS: 36415; 80053; 80306; 80320; 80329; 81000; 84703; 85025; 99284

== ENCOUNTER 2018-02-11 11:34 | Emergency (ER) | payer MEDICAID ==
[~2018-02-11] VITALS: Ht 160 cm; Wt 186.4 kg
[~2018-02-11 11:34] MED LIST changes: +METF-399 PO; -METF10002 PO
--- OUTSIDE RECORDS SUMMARY | 2018-02-11 11:45 | XMS REPORT | Clinical Summary ---
Author Author [facility] Organization [facility] Address Unknown Phone Unavailable Care Team Providers Care Commercial Cleaner Name Role Phone Vijay Knowles MD Unavailable Bettye Fang MD Unavailable Source Comments Some departments are not documenting in the electronic medical record. If you do not see the information that you expected, contact Release of Information in the Health Information Management department at [phone] for further assistance in locating additional records.[facility] Allergies Not on File Current Medications [...] 10/12/2003 BREAST CANCER SCREENING 2013 INFLUENZA VACCINE 11/12/2017 Results Not on filefrom Last 3 Months
--- NOTE | 2018-02-11 12:09 | ED Upper Extremity ---
General Chief Complaint: Upper Extremity Stated Complaint: FALL/L SHOULDER/ARM PAIN/CP Source: patient Exam Limitations: no limitations History of Present Illness Date Seen by Provider: Feb 11, 2018 Time Seen by Provider: 11:45 Initial Comments Here with report of left shoulder pain after having several falls couple weeks ago. States his shoulder is progressively worsening and last night started having some left upper lateral chest pain with this. Complains of pain with any range of motion to the area of the shoulder and thinks that she broke her shoulder. She has not fallen in the last 2 weeks. She is not short of breath more than normal. She wears her oxygen at night only. Denies weakness of the extremity at the hand. Onset: other (2 weeks ago) Severity: moderate Pain/Injury Location: left shoulder Method of Injury: direct blow, fell Modifying Factors: Improves With Immobilization; Worse With Movement Allergies and Home Medications Allergies Coded Allergies: No Known Drug Allergies (Unverified , 08/08/16) Home Medications Albuterol Sulfate 8.5 Gm Hfa.aer.ad, 2 PUFF IH Q4H PRN for SHORTNESS OF BREATH, (Reported) Aspirin/Acetaminophen/Caffeine 1 Each Tablet, 2 TAB PO BID PRN for PAIN-MILD, ( Reported) Budesonide/Formoterol Fumarate 10.2 Gm Hfa.aer.ad, 2 PUFF IH BID, (Reported) Cetirizine HCl 10 Mg Tablet, 10 MG PO DAILY, (Reported) Folic Acid/Mv,Fe,Other Min 1 Each Tablet, 1 TAB PO DAILY, (Reported) Furosemide 40 Mg Tablet, 40 MG PO DAILY PRN for SWELLING, (Reported) Gemfibrozil 600 Mg Tablet, 600 MG PO BID, (Reported) Ibuprofen 600 Mg Tablet, 1,200 MG PO BID PRN for PAIN-MILD, (Reported) TAKES 2 (600MG) TABLETS Insulin Aspart 100 Unit/1 Ml Susp, 40 UNITS SQ AC, (Reported) Insulin Glargine,Hum.rec.anlog 100 Unit/1 Ml Vial, 52-53 UNITS SQ BID, (Reported ) Ipratropium [place] 0.2 Mg/1 Ml Solution, 2 VIAL IH TID PRN for SHORTNESS OF BREATH, (Reported) UESE TWO VIALS PER TREATMENT Metformin HCl 1,000 Mg Tablet, 1,000 MG PO BID WITH MEALS, (Reported) Metolazone 2.5 Mg Tablet, 2.5 MG PO DAILY Prescribed by: PITER ESPINOZA on 12/29/16 0853 Montelukast Sodium 10 Mg Tablet, 10 MG PO DAILY, (Reported) Omeprazole 40 Mg Capsule.dr, 40 MG PO DAILY, (Reported) Pravastatin Sodium 40 Mg Tablet, 40 MG PO HS, (Reported) Pregabalin 150 Mg Capsule, 300 MG PO HS, (Reported) TAKES 2 (150 MG) CAPSULES Pregabalin 150 Mg Capsule, 150 MG PO 0800,1800, (Reported) Ranitidine HCl 150 Mg Tablet, 300 MG PO HS, (Reported) TAKES 2 (150 MG) TABLETS Sucralfate 1 Gm Tablet, 2 GM PO BID, (Reported) TAKES 2 (1GM) TABLETS Patient Home Medication List Home Medication List Reviewed: Yes Review of Systems Constitutional: see HPI; No chills; fever Respiratory: no symptoms reported Cardiovascular: see HPI, chest pain, edema Gastrointestinal: No abdominal pain, No nausea, No vomiting Musculoskeletal: see HPI; No back pain; joint pain, muscle pain; No neck pain Skin: no symptoms reported Past Ervogfg-Epekla-Dmgkhz Hx Past Med/Social Hx: Reviewed Nursing Past Med/Soc Hx Patient Social History Alcohol Use: Denies Use Recreational Drug Use: No Smoking Status: Former Smoker Type Used: Cigarettes Former Smoker, Quit: Feb 12, 1999 2nd Hand Smoke Exposure: No Recent Foreign Travel: No Contact w/Someone Who Travel: No Recent Hopitalizations: No Immunizations Up To Date Tetanus Booster (TDap): Unknown PED Vaccines UTD: No Date of Pneumonia Vaccine: Jan 13, 2012 Date of Influenza Vaccine: Feb 26, 2012 Seasonal Allergies Seasonal Allergies: No Past Medical History Surgeries: Yes Adenoidectomy, Bladder Surgery, Tonsillectomy Respiratory: Yes Asthma, Sleep Apnea, COPD Currently Using CPAP: No (noncompliant) Currently Using BIPAP: Yes Cardiac: No Chronic Edema/Swelling, High Cholesterol, Hypertension Neurological: No Reproductive Disorders: No Female Reproductive Disorders: Denies Sexually Transmitted Disease: No HIV/AIDS: No Genitourinary: Yes (UTI) Gastrointestinal: No Gastroesophageal Reflux, Chronic Constipation Musculoskeletal: No Chronic Back Pain Endocrine: Yes Diabetes, Insulin dep HEENT: No Loss of Vision: Denies Hearing Impairment: Denies Cancer: No Psychosocial: Yes Anxiety, Personality Disorder, Depression Integumentary: Yes (Diabetic ulcers) Eczema Blood Disorders: No Adverse Reaction/Blood Tranf: No Family Medical History Reviewed Nursing Family Hx Cancer 19 FATHER, Onset:Unknown 19 MOTHER, Onset:Unknown Cancer of colon 19 FATHER, Onset:Unknown 19 MOTHER, Onset:Unknown Family history: Cardiovascular disease 19 FATHER, Onset:Unknown 19 MOTHER, Onset:Unknown Family history: Diabetes mellitus 19 FATHER, Onset:Unknown 19 MOTHER, Onset:Unknown Heart Disease, Seizures Physical Exam Vital Signs Vital Signs - First Documented 02/11/18 11:41 Temp 98.2 Pulse 101 Resp 12 B/P (MAP) 156/95 (115) Pulse Ox 93 Capillary Refill : Height, Weight, BMI Height: 5'4.00" Weight: 400lbs. 0oz. [id number]; 79.9 BMI Method:Stated General Appearance: WD/WN, no apparent distress Cardiovascular: regular rate, rhythm, no murmur Respiratory: lungs clear, normal breath sounds Shoulder: limited ROM, soft tissue tenderness (reports exquisite tenderness to the anterior, posterior and lateral aspect of the left shoulder. No obvious deformity, abrasion or ecchymosis noted.) Wrist: Yes normal inspection, Yes non-tender Hand: normal inspection, no evidence of injury, normal ROM, Bilateral Neurologic/Psychiatric: alert, oriented x 3 Skin: normal color, warm/dry Progress/Results/Core Measures Results/Orders Lab Results Laboratory Tests Test 02/11/18 12:01 02/11/18 12:06 Range/Units Troponin I < 0.30 <0.30 NG/ML Glucometer 224 H 70-110 MG/DL My Orders Orders - CECE DORADO MD Troponin I (02/11/18 11:52) Accucheck Stat ONCE (02/11/18 11:52) Ekg Tracing (02/11/18 11:52) Chest Pa/Lat (2 View) (02/11/18 11:52) Shoulder, Left, 3 Views (02/11/18 11:52) Vital Signs/I&O 02/11/18 11:41 Temp 98.2 Pulse 101 Resp 12 B/P (MAP) 156/95 (115) Pulse Ox 93 Progress Progress Note : Progress Note Seen and evaluated. We will check EKG and troponin and then get a chest x-ray and left shoulder x-ray. Monitor patient. 1305: No acute findings. Sling applied. Discharged home with return precautions. Patient verbalize understanding instructions and agreement with plan. Initial ECG Impression Date: Feb 11, 2018 Initial ECG Impression Time: 11:54 Initial ECG Rate: 96 Initial ECG Rhythm: Normal Sinus Comment Sinus rhythm with normal axis. No evidence of ST elevation IA. Similar to 11/02. Interpreted by me. Diagnostic Imaging Diagonstic Imaging: Xray Plain Films/CT/US/NM/MRI: chest Comments [place], [place] NAME: ISAMAR BOYLE [facility] REC#: [id number] PT STATUS: REG ER : 1975 PHYSICIAN: CECE DORADO MD ADMIT DATE: 02/11/18/ER Draft Date of Exam:02/11/18 CHEST PA/LAT (2 VIEW) INDICATION: Multiple falls, complaining of left shoulder pain. TIME OF EXAMINATION: 12:37 PM. COMPARISON: 12/29/2016. FINDINGS: The heart size is normal. The lungs are clear. The pulmonary vascularity is normal. No effusion or pneumothorax is seen. The visualized bony structures are unremarkable. IMPRESSION: No acute cardiopulmonary process is detected. Dictated on workstation # [id number] Dict: 02/11/18 1228 Trans: 02/11/18 1229 [id number] Interpreted by: GREG VELÁSQUEZ MD Electronically signed by: Diagonstic Imaging: Xray Plain Films/CT/US/NM/MRI: other Comments [place], [place] NAME: ISAMAR BOYLE [facility] REC#: [id number] PT STATUS: REG ER : 1975 PHYSICIAN: CECE DORADO MD ADMIT DATE: 02/11/18/ER Draft Date of Exam:02/11/18 SHOULDER, LEFT, 3 VIEWS INDICATION: Multiple falls and left shoulder pain. TIME OF EXAMINATION: 12:38 PM. FINDINGS: Three views of the left shoulder were obtained. The glenohumeral and acromioclavicular alignment are normal. The acromiohumeral space is normal. There is some degenerative spurring at the humeral head/neck junction. No fracture or dislocation is seen. IMPRESSION: Degenerative changes. No acute bony abnormality is detected. Dictated on workstation # [id number] Dict: 02/11/18 1229 Trans: 02/11/18 1230 [id number] Interpreted by: GREG VLEÁSQUEZ MD Electronically signed by: Departure Impression Primary Impression: Left shoulder strain Qualified Codes: S46.912A - Strain of unspecified muscle, fascia and tendon at shoulder and upper arm level, left arm, initial encounter Disposition: HOME, SELF-CARE Condition: Stable Departure-Patient Inst. Decision time for Depature: 13:19 Referrals: ZAINAB HESS MD (PCP/Family) Primary Care Physician Patient Instructions: Shoulder Bursitis (DC), Shoulder Sprain (DC) Add. Discharge Instructions: All discharge instructions reviewed with patient and/or family. Voiced understanding. You may take Tylenol/acetaminophen 1000 mg every 6 hours as needed for pain. Take other medications as directed. Follow-up with your doctor within one week for recheck and further evaluation and for referral to orthopedics for evaluation of the shoulder. Use sling as needed over the next several days. You may use ice packs 20 minutes per hour as needed for pain. Return for worse pain or other concerns as needed. Scripts Tramadol HCl (Tramadol HCl) 50 Mg Tablet 50 MG PO Q6H PRN for PAIN, #20 TAB 0 Refills Prov: CECE DORADO MD 02/11/18 CECE DORADO MD Feb 11, 2018 12:09
--- NOTE | 2018-02-11 12:30 | Diagnostic Imaging Report ---
INDICATION: Multiple falls, complaining of left shoulder pain. TIME OF EXAMINATION: 12:37 PM. COMPARISON: 12/29/2016. FINDINGS: The heart size is normal. The lungs are clear. The pulmonary vascularity is normal. No effusion or pneumothorax is seen. The visualized bony structures are unremarkable. IMPRESSION: No acute cardiopulmonary process is detected. Dictated by: Dictated on workstation # [id number]
--- NOTE | 2018-02-11 12:31 | Diagnostic Imaging Report ---
INDICATION: Multiple falls and left shoulder pain. TIME OF EXAMINATION: 12:38 PM. FINDINGS: Three views of the left shoulder were obtained. The glenohumeral and acromioclavicular alignment are normal. The acromiohumeral space is normal. There is some degenerative spurring at the humeral head/neck junction. No fracture or dislocation is seen. IMPRESSION: Degenerative changes. No acute bony abnormality is detected. Dictated by: Dictated on workstation # [id number]
--- OUTSIDE RECORDS SUMMARY | 2018-02-11 12:34 | XMS REPORT ---
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 [address] [address]- 3095 Jul, Unspecified mood [affective] disorder F39 [facility] [address] [address]- 2356 Jul, [facility] [id number] [place] [address] 97429- 5977 Jul, [facility] [address] [address]- 7457 Jul, Unspecified mood [affective] disorder F39 [facility] [address] [address] -6357 Jul, [facility] [address] [address]- 5504 Jun, Elevated AST (SGOT) R74.0 [facility] [address] [address]- 1008 Jun, [facility] [id number] [place] [address] 90382- 8731 24 Jun, 2015 Upper respiratory infection J06.9 and Type 2 diabetes mellitus with diabetic polyneuropathy E11.42 [facility] [address] [address]- 2787 Jun, Unspecified mood [affective] disorder F39 [facility] [address] [address]- 6549 Jun, [facility] [id number] [place] [address] 50920- 9288 Jun, Unspecified mood [affective] disorder [address] [place] [address] [address] [address]- 1870 Jun, Unspecified mood [affective] disorder F39 [facility] [address] [address]- 2032 18 Jun, 2015 Unspecified mood [affective] disorder [address] [address]- 1224 15 Jun, 2015 Unspecified mood [affective] disorder [address] [address]- 7361 14 Jun, 2015 [facility] [address] [address]- 2826 Jun, Type 2 diabetes mellitus with hyperglycemia E11.65 ; 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 ; Folliculitis L73.9 ; Dysuria R30.0 ; Encounter for contraceptive management Z30.9 and Dog bite W54.0XXA [facility] [id number] [place] [address] 57349- 2051 Jun, Unspecified mood [affective] disorder F39 [facility] [id number] [place] [address] 78231- 7983 Jun, Type 2 diabetes mellitus with hyperglycemia E11.65 [facility] [id number] [place] [address] 77351- 0582 May, Unspecified mood [affective] disorder F39 [facility] [id number] [place] [address] 67740- 8417 May, [facility] [id number] [place] [address] 84055- 9031 May, [facility] [id number] [place] [address] 95936- 2589 May, [facility] [id number] [place] [address] 65462- 9097 Apr, [facility] [id number] [place] [address] 10537- 0354 Apr, Unspecified mood [affective] disorder F39 [facility] [id number] [place] [address] 89231- 0201 Apr, [facility] [id number] [place] [address] 98822- 5029 Apr, [facility] [id number] [place] [address] 77373- 9555 Apr, [facility] [id number] [place] [address] 64360- 8103 Apr, Dysuria R30.0 and Well woman exam (no gynecological exam) Z00.00 [facility] [address] [address]- 3509 Mar, [facility] [id number] [place] [address] 91485- 9990 Mar, [facility] [address] [address] Mar, Dental examination Z01.20 [facility] [id number] [place] [address] 64271- 4565 Mar, Chronic diarrhea K52.9 ; Intractable vomiting with nausea, vomiting of unspecified type R11.2 ; Cellulitis, unspecified cellulitis site L03.90 ; Type 2 diabetes mellitus with diabetic polyneuropathy E11.42 and Postinflammatory hyperpigmentation L81.0 [facility] [address] [address]- 4813 Mar, Unspecified mood [affective] disorder F39 [facility] [id number] [place] [address] 88848- 2483 Mar, Unspecified mood [affective] disorder F39 [facility] [id number] [place] [address] 46526- 1200 Mar, [facility] [id number] [place] [address] 66340- 6029 Mar, [facility] [address] [address]- 3907 Mar, [facility] [id number] [place] [address] 09055- 1193 Mar, [facility] [address] [address]- 8006 Mar, [facility] [id number] [place] [address] 98000- 0343 Mar, [facility] [address] [address]- 5505 Feb, Unspecified mood [affective] disorder F39 [facility] [address] [address]- 6656 Feb, [facility] [id number] [place] [address] 39637- 4481 Feb, [facility] [id number] [place] [address] 04064- 3851 Jan, Unspecified mood [affective] disorder F39 [facility] [address] [id number] [id number] Jan, Encounter for dental examination Z01.20 [facility] [id number] [place] [address] 40607- 9541 Jan, [facility] [id number] [place] [address] 86534- 2975 Jan, [facility] [id number] [place] [address] 90480- 3638 Jan, [facility] [id number] [place] [address] 76489- 5733 Jan, [facility] [id number] [place] [address] 22302- 0332 Jan, [facility] [id number] [place] [address] 36686- 5874 Jan, Abdominal abscess K65.1 and Dental caries K02.9 [facility] [id number] [place] [address] 22503- 8414 Jan, [facility] [id number] [place] [address] 74576- 9135 Dec, Diabetes with neurological manifestations, type II or unspecified type, not stated as uncontrolled 250.60 ; Essential hypertension, benign 401.1 ; Concussion 850.9 and Skin texture changes 782.8 [facility] [id number] [place] [address] 21773- 9914 Dec, [facility] [id number] [place] [address] [place] [address] 2546 24 Sep, 2014 [facility] [address] [facility] [id number] [address] 2546 22 Sep, 2014 [facility] [address] [address] 2546 21 Sep, 2014 [facility] [address] [address] 2546 17 Sep, 2014 Affective disorder 296.90 [facility] [id number] [place] [address] 87504 2546 14 Sep, 2014 [facility] [id number] [place] [address] 83638 2546 10 Dec, 2014 Affective disorder 296.90 [facility] [address] [address] 2546 04 Sep, 2014 [facility] [id number] [place] [address] 43318 2546 04 Dec, 2014 [facility] [address] [address] 2546 04 Sep, 2014 [facility] [address] [address] 2546 03 Dec, 2014 [facility] [address] [address] 2546 Nov, 2014 Affective disorder 296.90 [facility] [address] [address] 2546 Nov, 2014 [facility] [address] [address] 2546 Nov, 2014 Affective disorder 296.90 [facility] [address] [address] 2546 Nov, 2014 Diarrhea 787.91 [facility] [place] [facility] [address] [address] 2546 Nov, 2014 [facility] [id number] [address] 2546 Nov, Diarrhea 787.91 [facility] [id number] [place] [address] 41699 2546 Nov, Diarrhea 787.91 and Hyperlipidemia 272.4 [facility] [id number] [place] [address] 54028 2546 Nov, Diarrhea 787.91 [facility] [id number] [place] [address] 44568 2546 Nov, Affective disorder 296.90 [facility] [id number] [place] [address] 49447- 4216 18 Nov, 2014 Affective disorder 296.90 [facility] [id number] [place] [address] 66883- 9897 17 Nov, 2014 Affective disorder 296.90 [facility] [id number] [place] [address] 25371- 2844 14 Nov, 2014 [facility] [id number] [place] [address] 45655- 8906 Nov, [facility] [id number] [place] [address] 11498- 3190 Nov, [facility] [id number] [place] [address] 61659- 8542 Nov, Episodic mood disorder 296.90 [facility] [id number] [place] [address] 44071- 0240 Nov, [facility] [id number] [place] [address] 92506 2541 Nov, [facility] [id number] [place] [address] 89126- 2547 Nov, [facility] [id number] [place] [address] 06063- 5693 Nov, [facility] [id number] [place] [address]9749- 7978 Nov, [facility] [address] [address] Nov, Lymphedema 457.1 ; Hyperlipidemia 272.4 ; Essential hypertension, benign 401.1 and Numbness of toes 782.0 [facility] [address] [address] Nov, Episodic mood disorder 296.90 [facility] [id number] [place] [address]14- 2097 Oct, [facility] [address] [address] Oct, [facility] [address] [address] Oct, [facility] [address] [address] Oct, [facility] [address] [address] Oct, [facility] [address] [address] Oct, [facility] [address] [address] 8124 Oct, [facility] [address] [address] Oct, [facility] [address] [address] Oct, Episodic mood disorder 296.90 [facility] [address] [address] [address] Sep, [facility] [address] [id number] [address] Sep, [facility] [address] [address] [address] Sep, [facility] [address] [address] 6[address] Sep, [facility] [address] [address] Sep, [facility] [address] [address] 6611 Sep, Episodic mood disorder 296.90 [facility] [address] [address] 9[address] Sep, Unspecified episodic mood disorder 296.90 [facility] [address] [address] Sep, [facility] [address] [address] Sep, [facility] [address] [address] 1547 16 Sep, 2014 Episodic mood disorder 296.90 [facility] [address] [address] 9[address] 15 Sep, 2014 [facility] [id number] [address] 15[address] Sep, [facility] [address] [address] Sep, [facility] [address] [address] 09 Sep, 2014 Hematemesis 578.0 and Vomiting 787.03 [facility] [id number] [address]- 1612 09 Sep, 2014 Episodic mood disorder 296.90 [facility] [address] [address]- 2822 08 Sep, 2014 [facility] [address] [address] 08 Sep, 2014 [facility] [address] [address] Sep, Diabetes mellitus without mention of complication, type II or unspecified type, not stated as uncontrolled 250.00 and Other chronic pain 338.29 [facility] [address] [address] Sep, Episodic mood disorder 296.90 [facility] [address] [address] 5[address] Sep, [facility] [id number] [place] [address] 1293 Sep, Episodic mood disorder 296.90 [facility] [id number] [place] [address]- 9401 Sep, [facility] [address] [address]- 4[address] August, [facility] [address] [id number] [address] August, [facility] [address] [address] 46[address] August, Episodic mood disorder 296.90 [facility] [address] [address] 04[address] August, [facility] [address] [address] 29[address] August, Unspecified episodic mood disorder 296.90 [facility] [address] [address] 9[address] August, Vomiting 787.03 [facility] [address] [address]- 8656 August, [facility] [address] [id number] 28[address] August, [facility] [address] [address]- 1858 August, [facility] [id number] [place] [address] 1216 August, [facility] [place] [facility] [address] [id number] [place] [address]- 3352 August, [facility] [place] [facility] [address] [id number] [place] [address]- 3364 28 Jul, 2014 [facility] [place] [facility] [address] [id number] [place] [address]- 4196 14 Jul, 2014 [facility] [place] [facility] [address] [id number] [place] [address]- 8908 Jul, [facility] [place] [facility] [address] [id number] [place] 4928 30 Jun, 2014 [facility] [place] [facility] [address] [id number] [place] [address]- 0927 Jun, [facility] [place] [facility] [address] [id number] [place] [address]- 8287 30 Jun, 2014 [facility] [place] [facility] [address] [id number] [place] [address]- 7377 Jun, [facility] [place] [facility] [address] [id number] [place] [address]- 3502 Jun, [facility] [place] [facility] [address] [id number] [place] [address]- 7675 Jun, [facility] [place] [facility] [address] [id number] [place] [address]- 5293 30 Jun, 2014 [facility] [place] [facility] [address] [id number] [place] [address]- 8305 30 Jun, 2014 [facility] [place] [facility] [address] [id number] [place] [address]- 7972 Jun, [facility] [place] [facility] [address] [id number] [place] [address]- 6464 Jun, [facility] [place] [facility] [address] [id number] [place] [address]- 5360 Jun, [facility] [place] [facility] [address] [id number] [place] [address]- 0509 Jun, [facility] [place] [facility] [address] [id number] [place] [address]- 6455 Jun, [facility] [place] [facility] [address] [id number] [place] [address]- 5668 Jun, [facility] [place] [facility] [address] [id number] [place] [address]- 8644 Jun, [facility] [place] [facility] [address] [id number] [place] [address]- 4273 Jun, [facility] [place] [facility] [address] [id number] [place] [address]- 2658 Jun, [facility] [place] [facility] [address] [id number] [place] [address]- 9124 Jun, [facility] [place] [facility] [address] [id number] [place] [address]- 9329 Jun, [facility] [place] [facility] [address] [id number] [place] [address]- 8398 Jun, [facility] [place] [facility] [address] [id number] [place] [address]- 7949 Jun, [facility] [place] [facility] [address] [id number] [place] [address]- 7752 Jun, [facility] [place] [facility] [address] [id number] [place] [address]- 8281 Jun, [facility] [place] [facility] [address] [id number] [place] [address]- 3125 Jun, [facility] [place] [facility] [address] [id number] [place] [address]- 6241 Jun, [facility] [place] [facility] [address] [id number] [place] [address]- 1548 19 Jun, 2014 [facility] [place] [facility] [address] [id number] [place] [address]- 7047 19 Jun, 2014 [facility] [place] [facility] [address] [id number] [place] [address]- 6979 18 Jun, 2014 [facility] [place] [facility] [address] [id number] [place] [address]- 7695 18 Jun, 2014 [facility] [place] [facility] [address] [id number] [place] [address]- 1293 17 Jun, 2014 [facility] [place] [facility] [address] [id number] [place] [address]- 4168 17 Jun, 2014 [facility] [place] [facility] [address] [id number] [place] [address]- 0735 16 Jun, 2014 [facility] [place] [facility] [address] [id number] [place] [address]- 9735 16 Jun, 2014 [facility] [place] [facility] [address] [id number] [place] [address]- 1944 16 Jun, 2014 [facility] [place] [facility] [address] [id number] [place] [address]- 3983 16 Jun, 2014 [facility] [place] [facility] [address] [id number] [place] [address]- 7631 16 Jun, 2014 [facility] [place] [facility] [address] [id number] [place] [address]- 3299 16 Jun, 2014 [facility] [place] [facility] [address] [id number] [place] [address]- 3963 13 Jun, 2014 [facility] [place] [facility] [address] [id number] [place] [address]- 4576 13 Jun, 2014 [facility] [place] [facility] [address] [id number] [place] [address]- 7383 12 Jun, 2014 [facility] [place] [facility] [address] [id number] [place] [address]- 5479 12 Jun, 2014 [facility] [place] [facility] [address] [id number] [place] [address]- 4199 09 Jun, 2014 [facility] [place] [facility] [address] [id number] [place] [address]- 7927 Jun, 2014 [facility] [place] [facility] [address] [id number] [place] [address]- 3455 Jun, 2014 [facility] [place] [facility] [address] [id number] [place] [address]- 0148 Jun, 2014 [facility] [place] [facility] [address] [id number] [place] [address]- 1801 Jun, 2014 [facility] [place] [facility] [address] [id number] [place] [address]- 9521 Jun, 2014 [facility] [place] [facility] [address] [id number] [place] [address]- 2085 Jun, 2014 [facility] [place] [facility] [address] [id number] [place] [address]- 1076 Jun, 2014 [facility] [place] [facility] [address] [id number] [place] [address]- 1018 Jun, 2014 [facility] [place] [facility] [address] [id number] [place] [address]- 6390 Jun, 2014 [facility] [place] [facility] [address] [id number] [place] [address]- 3909 Jun, 2014 [facility] [place] [facility] [address] [id number] [place] [address]- 4607 Jun, 2014 [facility] [place] [facility] [address] [id number] [place] [address]- 5537 Jun, 2014 [facility] [place] [facility] [address] [id number] [place] [address]- 4181 Jun, [facility] [place] [facility] [address] [id number] [place] [address]- 5725 Jun, 2014 [facility] [place] [facility] [address] [id number] [place] [address]- 9376 Jun, 2014 [facility] [place] [facility] [address] [id number] [place] [address]- 9262 May, 2014 [facility] [place] [facility] [address] [facility] [id number] [place] [address]- 7546 May, 2014 [facility] [place] [facility] [address] [facility] [id number] [place] [address]- 2696 25 May, 2014 [facility] [place] [facility] [address] [facility] [id number] [place] [address]- 8676 May, 2014 [facility] [place] [facility] [address] [facility] [id number] [place] [address]- 2545 24 May, 2014 [facility] [place] [facility] [address] [facility] [id number] [place] [address]- 3110 24 May, 2014 [facility] [place] [facility] [id number] [place] [address]- 8366 20 May, 2014 [facility] [place] [facility] [address] [id number] [place] [address]- 7402 20 May, 2014 [facility] [place] [facility] [address] [facility] [id number] [place] [address]- 2545 20 May, 2014 [facility] [place] [facility] [address] [facility] [id number] [place] [address]- 7419 20 May, 2014 [facility] [place] [facility] [id number] [place] [address]- 6675 18 May, 2014 [facility] [place] [facility] [address] [id number] [place] [address]- 2546 18 May, 2014 [facility] [place] [facility] [address] [facility] [id number] [address]- 2547 13 May, 2014 [facility] [place] [facility] [address] [facility] [id number] [place] [address]- 2802 13 May, 2014 [facility] [place] [facility] [address] [facility] [id number] [address]- 2546 11 May, 2014 [facility] [place] [facility] [id number] [place] [address]- 4750 May, 2014 [facility] [place] [facility] [address] [id number] [place] [address]- 6470 May, 2014 [facility] [place] [facility] [address] [id number] [place] [address]- 5651 May, 2014 [facility] [place] [facility] [address] [facility] [id number] [place] [address]- 9612 May, 2014 [facility] [place] [facility] [address] [facility] [id number] [place] [address]- 4488 May, 2014 [facility] [place] [facility] [address] [id number] [place] [address]- 3082 May, 2014 [facility] [place] [facility] [address] [facility] [id number] [place] [address]- 3314 May, 2014 [facility] [place] [facility] [address] [facility] [id number] [place] [address]- 3221 May, 2014 [facility] [place] [facility] [address] [facility] [id number] [place] [address]- 5388 May, 2014 [facility] [place] [facility] [address] [facility] [id number] [place] [address]- 2694 May, 2014 [facility] [place] [facility] [address] [facility] [id number] [place] [address]- 0395 May, 2014 [facility] [place] [facility] [address] [facility] [id number] [place] [address]- 9077 May, 2014 [facility] [place] [facility] [address] [facility] [id number] [address]- 1512 Apr, [facility] [place] [facility] [address] [facility] [id number] [place] [address]- 1974 Apr, [facility] [place] [facility] [address] [facility] [id number] [place] [address]- 1296 Apr, [facility] [place] [facility] [address] [facility] [id number] [place] [address]- 1443 Apr, [facility] [place] [facility] [address] [id number] [place] [address]- 4427 Apr, [facility] [place] [facility] [address] [id number] [place] [address]- 2484 Apr, [facility] [place] [facility] [address] [id number] [place] [address]- 1948 Apr, [facility] [place] [facility] [address] [id number] [place] [address]- 3938 Apr, [facility] [place] [facility] [address] [id number] [place] [address]- 5041 Apr, [facility] [place] [facility] [address] [id number] [place] [address]- 5870 Apr, [facility] [place] [facility] [address] [id number] [place] [address]- 9279 Apr, [facility] [place] [facility] [address] [id number] [place] [address]- 2149 Apr, [facility] [place] [facility] [address] [id number] [place] [address]- 0281 Apr, [facility] [place] [facility] [address] [id number] [place] [address]- 0824 Apr, [facility] [place] [facility] [address] [id number] [place] [address]- 4328 Apr, [facility] [place] [facility] [address] [id number] [place] [address]- 7940 Apr, [facility] [place] [facility] [address] [id number] [place] [address]- 7207 Apr, [facility] [place] [facility] [address] [id number] [place] [address]- 1670 Apr, [facility] [place] [facility] [address] [id number] [place] [address]- 2862 Apr, [facility] [place] [facility] [address] [id number] [place] [address]- 9378 Apr, [facility] [place] [facility] [address] [id number] [place] [address]- 7899 Mar, [facility] [place] [facility] [address] [id number] [place] [address]- 3136 Mar, [facility] [place] [facility] [address] [id number] [place] [address]- 1895 Mar, [facility] [place] [facility] [address] [id number] [place] [address]- 2959 Mar, [facility] [place] [facility] [address] [id number] [place] [address]- 4315 Mar, [facility] [place] [facility] [address] [id number] [place] [address]- 6388 Mar, [facility] [place] [facility] [address] [id number] [place] [address]- 5906 Mar, [facility] [place] [facility] [address] [id number] [place] [address]- 5911 Mar, [facility] [place] [facility] [address] [id number] [place] [address]- 9243 15 Mar, 2014 [facility] [place] [facility] [address] [id number] [place] [address]- 8580 15 Mar, 2014 [facility] [place] [facility] [address] [id number] [place] [address]- 9371 15 Mar, 2014 [facility] [place] [facility] [address] [id number] [place] [address]- 6576 15 Mar, 2014 [facility] [place] [facility] [address] [id number] [place] [address]- 5900 Mar, [facility] [place] [facility] [address] [id number] [place] [address]- 6588 Mar, [facility] [place] [facility] [address] [id number] [place] 3043 Mar, [facility] [place] [facility] [address] [id number] [place] [address]- 2458 Mar, [facility] [place] [facility] [address] [id number] [place] [address]- 1650 Feb, [facility] [place] [facility] [address] [id number] [place] [address]- 4963 Feb, [facility] [place] [facility] [address] [id number] [place] [address]- 8127 Feb, [facility] [place] [facility] [address] [id number] [place] [address]- 6809 Feb, [facility] [place] [facility] [address] [id number] [place] [address]- 1653 Feb, [facility] [place] [facility] [address] [id number] [place] [address]- 5970 Feb, [facility] [place] [facility] [address] [id number] [place] [address]- 2031 Feb, [facility] [place] [facility] [address] [id number] [place] [address]- 1210 Feb, [facility] [place] [facility] [address] [id number] [place] [address]- 9116 Feb, [facility] [place] [facility] [address] [id number] [place] [address]- 2132 Feb, [facility] [place] [facility] [address] [id number] [place] [address]- 6973 Feb, [facility] [place] [facility] [address] [id number] [place] [address]- 8291 17 Feb, 2014 [facility] [place] [facility] [address] [id number] [place] [address]- 9257 17 Feb, 2014 [facility] [place] [facility] [address] [id number] [place] [address]- 6785 14 Feb, 2014 [facility] [place] [facility] [address] [id number] [place] [address]- 3491 Feb, [facility] [place] [facility] [address] [id number] [place] [address]- 0912 Feb, [facility] [place] [facility] [address] [id number] [place] [address]- 4086 Feb, [facility] [place] [facility] [address] [id number] [place] [address]- 9352 Feb, [facility] [place] [facility] [address] [id number] [place] [address]- 4971 Feb, [facility] [place] [facility] [address] [id number] [place] [address]- 0640 Feb, [facility] [place] [facility] [address] [id number] [place] [address]- 2539 Feb, [facility] [place] [facility] [address] [id number] [place] [address]- 5374 Jan, [facility] [place] [facility] [address] [id number] [place] [address]- 2350 Jan, [facility] [place] [facility] [address] [id number] [place] [address]- 9959 Jan, [facility] [place] [facility] [address] [id number] [place] [address]- 1158 Jan, [facility] [place] [facility] [address] [id number] [place] [address]- 2175 Jan, [facility] [place] [facility] [address] [id number] [place] [address]- 8688 Jan, [facility] [place] [facility] [address] [id number] [place] [address]- 1526 Jan, [facility] [place] [facility] [address] [id number] [place] [address]- 7010 Jan, [facility] [place] [facility] [address] [id number] [place] [address]- 8395 Jan, [facility] [place] [facility] [address] [id number] [place] [address]- 4281 20 Jan, 2013 [facility] [place] [facility] [address] [id number] [place] [address]- 9189 17 Jan, 2013 [facility] [place] [facility] [address] [id number] [place] 7897 17 Jan, 2013 [facility] [place] [facility] [address] [id number] [place] [address]- 1272 17 Jan, 2013 [facility] [place] [facility] [address] [id number] [place] [address]- 9897 17 Jan, 2013 [facility] [place] [facility] [address] [id number] [place] [address]- 0175 15 Jan, 2013 [facility] [place] [facility] [address] [id number] [place] [address]- 8664 15 Jan, 2013 [facility] [place] [facility] [address] [id number] [place] [address]- 7690 14 Jan, 2014 [facility] [place] [facility] [address] [id number] [place] [address]- 2439 14 Jan, 2014 [facility] [place] [facility] [address] [id number] [place] [address]- 3573 13 Jan, 2014 [facility] [place] [facility] [address] [id number] [place] [address]- 3891 13 Jan, 2014 [facility] [place] [facility] [address] [id number] [place] [address]- 6532 13 Jan, 2014 [facility] [place] [facility] [address] [id number] [address]- 9837 13 Jan, 2014 [facility] [place] [facility] [address] [id number] [place] [address]- 5214 10 Jan, 2013 [facility] [place] [facility] [address] [id number] [place] [address]- 7828 02 Jan, 2014 [facility] [place] [facility] [address] [id number] [place] [address]- 5980 02 Jan, 2013 [facility] [place] [facility] [address] [id number] [place] [address] 25 Sep, 2013 [facility] [place] [facility] [address] [id number] [place] [address] 2546 25 Sep, 2013 [facility] [place] [facility] [address] [id number] [place] [address] 23 Sep, 2013 [facility] [address] [id number] [place] [address] 23 Sep, 2013 [facility] [place] [facility] [address] [id number] [place] [address] 19 Sep, 2013 [facility] [place] [facility] [address] [id number] [place] [address] 19 Sep, 2013 [facility] [place] [facility] [address] [id number] [place] [address]79 17 Sep, 2013 [facility] [place] [facility] [address] [id number] [place] [address] 17 Sep, 2013 [facility] [address] [id number] [place] [address] 09 Sep, 2013 [facility] [place] [facility] [address] [id number] [place] [address]- [address] 09 Sep, 2013 [facility] [place] [facility] [address] [id number] [place] [address] 08 Sep, 2013 [facility] [place] [facility] [address] [id number] [place] [address]- [address] 08 Sep, 2013 [facility] [place] [facility] [address] [id number] [place] [address]49 04 Sep, 2013 [facility] [place] [facility] [address] [id number] [place] [address]- [address]43 04 Sep, 2013 [facility] [place] [facility] [address] [id number] [place] [address]- 2541 02 Sep, 2013 [facility] [place] [facility] [address] [id number] [place] [address] Dec, [facility] [place] [facility] [address] [id number] [place] [address] Dec, [facility] [place] [facility] [address] [id number] [place] [address] Dec, [facility] [place] [facility] [address] [id number] [place] [address] Nov, [facility] [place] [facility] [address] [id number] [place] [address]- 37[address] Nov, [facility] [place] [facility] [address] [id number] [place] [address] 8719 Nov, [facility] [place] [facility] [address] [id number] [place] [address] 36[address] Nov, [facility] [place] [facility] [address] [id number] [place] [address] 2845 Nov, [facility] [place] [facility] [address] [id number] [place] [address]- 3057 Nov, [facility] [place] [facility] [address] [id number] [place] [address]185 Nov, [facility] [place] [facility] [address] [id number] [place] [address] 9810 Nov, [facility] [place] [facility] [address] [id number] [place] [address] Nov, [facility] [place] [facility] [address] [id number] [place] [address] Nov, [facility] [place] [facility] [address] [id number] [place] [address] 407[address] Nov, [facility] [place] [facility] [address] [id number] [place] [address] 4[address] Nov, [facility] [place] [facility] [address] [id number] [place] [address] 7835 Oct, [facility] [place] [facility] [address] [id number] [place] [address] Oct, [facility] [place] [facility] [address] [id number] [place] [address] Oct, [facility] [place] [facility] [address] [id number] [place] [address] 8[address] Oct, [facility] [place] [facility] [address] [id number] [place] [address] 69[address] Oct, [facility] [place] [facility] [address] [id number] [place] [address]- 8837 Oct, [facility] [place] [facility] [address] [id number] [place] [address] Oct, [facility] [place] [facility] [address] [id number] [place] [address] 4870 Oct, [facility] [place] [facility] [address] [id number] [place] [address] 2796 Oct, [facility] [place] [facility] [address] [id number] [place] [address]- 6214 Oct, [facility] [place] [facility] [address] [id number] [place] [address]- 1082 Oct, [facility] [place] [facility] [address] [id number] [place] [address]- 2545 Oct, [facility] [place] [facility] [address] [id number] [place] [address]- 0730 Oct, [facility] [place] [facility] [address] [id number] [place] [address]- [address]21 Oct, [facility] [place] [facility] [address] [id number] [place] [address]- [address] Oct, [facility] [place] [facility] [address] [id number] [place] [address]- 7476 Oct, [facility] [place] [facility] [address] [id number] [place] [address] 6870 Oct, [facility] [place] [facility] [address] [id number] [place] [address]- [address]258 27 Sep, 2013 [facility] [place] [facility] [address] [id number] [place] [address]- 6349 Sep, [facility] [place] [facility] [address] [id number] [place] [address]- 6750 Sep, [facility] [place] [facility] [address] [id number] [place] [address]- 4029 Sep, [facility] [place] [facility] [address] [id number] [place] [address]- 9626 18 Sep, 2013 [facility] [place] [facility] [address] [id number] [place] [address]- 1025 18 Sep, 2013 [facility] [place] [facility] [address] [id number] [place] [address]- 1415 17 Sep, 2013 [facility] [place] [facility] [address] [id number] [place] [address]- 3964 17 Sep, 2013 [facility] [place] [facility] [address] [id number] [place] [address]- 2845 Sep, [facility] [place] [facility] [address] [id number] [place] [address]- 3899 Sep, [facility] [place] [facility] [address] [id number] [place] [address]- 4175 Sep, [facility] [place] [facility] [address] [id number] [place] [address]- 8177 Sep, [facility] [place] [facility] [address] [id number] [place] [address]- 6267 10 Sep, 2013 [facility] [place] [facility] [address] [id number] [place] [address]- 5541 Sep, [facility] [place] [facility] [address] [id number] [place] [address]- 8858 09 Sep, 2013 [facility] [place] [facility] [address] [id number] [place] [address]- 9878 Sep, [facility] [place] [facility] [address] [id number] [place] [address]- 2943 Sep, [facility] [place] [facility] [address] [id number] [place] [address]- [address] Sep, [facility] [place] [facility] [address] [id number] [place] [address] Sep, [facility] [place] [facility] [address] [id number] [place] [address] 0377 Sep, [facility] [place] [facility] [address] [id number] [place] [address]- 4765 Sep, [facility] [place] [facility] [address] [id number] [place] [address]- 8622 Sep, [facility] [place] [facility] [address] [id number] [place] [address]- 3471 August, [facility] [place] [facility] [address] [id number] [place] [address]- 2255 August, [facility] [place] [facility] [address] [id number] [place] [address]- 5427 August, [facility] [place] [facility] [address] [id number] [place] [address]- 8275 August, [facility] [place] [facility] [address] [id number] [place] [address]- 1437 August, [facility] [place] [facility] [address] [id number] [place] [address]- 9006 August, [facility] [place] [facility] [address] [id number] [place] [address]- 1559 August, [facility] [place] [facility] [address] [id number] [place] [address]- 2960 August, [facility] [place] [facility] [address] [id number] [place] [address]- 2239 August, [facility] [place] [facility] [address] [id number] [place] [address]- 5131 August, [facility] [place] [facility] [address] [id number] [place] [address]- 7858 August, [facility] [place] [facility] [address] [id number] [place] [address]- 8968 Jul, [facility] [place] [facility] [address] [id number] [place] [address]- 9319 Jul, [facility] [place] [facility] [address] [id number] [place] [address]- 1294 Jul, [facility] [place] [facility] [address] [id number] [place] [address]- 4893 Jul, [facility] [place] [facility] [address] [id number] [place] [address]- 3794 Jul, [facility] [place] [facility] [address] [id number] [place] [address]- 3046 Jul, [facility] [place] [facility] [address] [id number] [place] [address]- 0080 Jul, [facility] [place] [facility] [address] [id number] [place] [address]- 5680 Jul, [facility] [place] [facility] [address] [id number] [place] [address]- 4474 Jul, [facility] [place] [facility] [address] [id number] [place] [address]- 9636 Jul, [facility] [place] [facility] [address] [id number] [place] [address]- 1459 16 Jul, 2013 [facility] [place] [facility] [address] [id number] [place] [address]- 4003 Jul, [facility] [place] [facility] [address] [id number] [place] [address]- 9007 Jul, [facility] [place] [facility] [address] [id number] [place] [address]- 4418 Jul, [facility] [place] [facility] [address] [id number] [place] [address]- 2107 Jul, [facility] [place] [facility] [address] [id number] [place] [address]- 0147 Jul, [facility] [place] [facility] [address] [id number] [place] [address]- 3970 Jul, [facility] [place] [facility] [address] [id number] [place] [address]- 3664 Jul, [facility] [place] [facility] [address] [id number] [place] [address]- 7363 Jul, [facility] [place] [facility] [address] [id number] [place] [address]- 9752 Jul, [facility] [place] [facility] [address] [id number] [place] [address]- 4212 Jul, [facility] [place] [facility] [address] [id number] [place] [address]- 3849 Jul, [facility] [place] [facility] [address] [id number] [place] [address]- 7409 Jul, [facility] [place] [facility] [address] [id number] [place] [address]- 6452 Jun, [facility] [place] [facility] [address] [id number] [place] [address]- 3915 Jun, [facility] [place] [facility] [address] [id number] [place] [address]- 0512 Jun, [facility] [place] [facility] [address] [id number] [place] [address]- 3861 Jun, [facility] [place] [facility] [address] [id number] [place] [address]- 7834 Jun, [facility] [place] [facility] [address] [id number] [place] [address]- 8206 Jun, [facility] [place] [facility] [address] [id number] [place] [address]- 2546 Jun, [facility] [place] [facility] [address] [id number] [place] [address]- 9968 Jun, [facility] [place] [facility] [address] [id number] [place] [address]- 9059 Jun, [facility] [place] [facility] [address] [id number] [place] [address]- 9984 Jun, [facility] [place] [facility] [address] [id number] [place] [address]- 2817 Jun, [facility] [place] [facility] [address] [id number] [place] [address]- 8642 Jun, [facility] [place] [facility] [address] [id number] [place] [address]- 4011 May, [facility] [place] [facility] [address] [id number] [place] [address]- 9764 May, [facility] [place] [facility] [address] [id number] [place] [address]- 9304 Apr, [facility] [place] [facility] [address] [id number] [place] [address]- 8198 Apr, [facility] [place] [facility] [address] [id number] [place] [address]- 0195 Apr, [facility] [place] [facility] [address] [id number] [place] [address]- 3677 Apr, [facility] [place] [facility] [address] [id number] [place] [address]- 9354 Apr, [facility] [place] [facility] [address] [id number] [place] [address]- 6890 Apr, [facility] [place] [facility] [address] [id number] [place] [address]- 0160 Apr, [facility] [place] [facility] [address] [id number] [place] [address]- 1784 Apr, [facility] [place] [facility] [address] [id number] [place] [address]- 9605 14 Apr, 2013 [facility] [address] [id number] [place] [address]- 5640 Apr, [facility] [place] [facility] [address] [id number] [place] [address]- 4773 Apr, [facility] [address] [id number] [place] [address]- 1664 16 Mar, 2013 [facility] [place] [facility] [address] [id number] [place] [address]- 7489 Mar, [facility] [address] [id number] [place] [address]- 2692 Mar, [facility] [address] [id number] [place] [address]- 1984 Mar, [facility] [address] [id number] [place] [address]- 8213 Feb, [facility] [address] [id number] [place] [address]- 4058 Feb, [facility] [address] [id number] [place] [address]- 8460 Feb, [facility] [address] [id number] [place] [address]- 9753 Feb, [facility] [place] [facility] [address] [id number] [place] [address]- 6343 Feb, [facility] [place] [facility] [address] [id number] [place] [address]- 5286 Feb, [facility] [place] [facility] [address] [id number] [place] [address]- 9216 Feb, [facility] [place] [facility] [address] [id number] [place] Feb, [facility] [place] [facility] [address] [id number] [place] [address]- 7044 Feb, [facility] [place] [facility] [address] [id number] [place] [address]- 9353 Feb, [facility] [place] [facility] [address] [id number] [place] [address]- 9893 Feb, [facility] [place] [facility] [address] [id number] [place] [address]- 1444 Jan, [facility] [place] [facility] [address] [id number] [place] [address]- 3496 Jan, [facility] [place] [facility] [address] [id number] [place] [address]- 1932 Jan, [facility] [place] [facility] [address] [id number] [place] [address]- 4725 Jan, [facility] [place] [facility] [address] [id number] [place] [address]- 6422 Jan, [facility] [place] [facility] [address] [id number] [address]- 0875 Jan, [facility] [place] [facility] [address] [id number] [place] [address]- 0263 Jan, [facility] [place] [facility] [address] [id number] [address]- 6263 Jan, [facility] [place] [facility] [address] [id number] [address]- 7698 30 Dec, 2012 [facility] [place] [facility] [address] [id number] [address]- 4212 25 Dec, 2012 [facility] [place] [facility] [address] [id number] [place] [address]- 6592 18 Sep2012 [facility] [place] [facility] [address] [id number] [address]- 5817 17 Sep2012 [facility] [place] [facility] [address] [id number] [place] [address]- 6569 17 Dec, 2012 [facility] [place] [facility] [address] [id number] [place] [address]- 7366 16 Dec, 2012 [facility] [place] [facility] [address] [id number] [place] [address]- 5107 13 Dec, 2012 [facility] [place] [facility] [address] [id number] [place] [address]- 5164 11 Dec, 2012 [facility] [place] [facility] [address] [id number] [place] [address]- 4820 05 Dec, 2012 [facility] [place] [facility] [address] [id number] [place] [address]- 5925 04 Dec, 2012 [facility] [place] [facility] [address] [id number] [place] [address]- 8764 30 Nov, 2012 [facility] [place] [facility] [address] [id number] [place] [address]- 7472 29 Nov, 2012 [facility] [place] [facility] [address] [id number] [place] [address]- 2146 Nov, [facility] [place] [facility] [address] [id number] [place] [address]- 1115 Nov, [facility] [place] [facility] [address] [id number] [place] [address]- 8944 14 Nov, 2012 [facility] [place] [facility] [address] [id number] [place] [address]- 0923 Nov, [facility] [place] [facility] [address] [id number] [place] [address]- 8376 Nov, [facility] [place] [facility] [address] [id number] [place] [address]- 5278 Oct, [facility] [place] [facility] [address] [id number] [place] [address]- 1936 Oct, [facility] [place] [facility] [address] [id number] [place] [address]- 7431 Oct, [facility] [place] [facility] [address] [id number] [place] [address]- 6265 Oct, [facility] [place] [facility] [address] [id number] [place] [address]- 8603 15 Oct, 2012 [facility] [place] [facility] [address] [id number] [place] [address]- 0181 Oct, [facility] [place] [facility] [address] [id number] [place] [address]- 7128 Sep, [facility] [place] [facility] [address] [id number] [place] [address]- 7071 Sep, [facility] [place] [facility] [address] [id number] [place] [address]- 6188 Sep, [facility] [place] [facility] [address] [id number] [place] [address]- 0240 14 Sep, 2012 [facility] [place] [facility] [address] [id number] [place] [address]- 7023 Sep, [facility] [place] [facility] [address] [id number] [place] [address]- 2476 Sep, [facility] [place] [facility] [address] [id number] [place] [address]- 7549 Sep, [facility] [place] [facility] [address] [id number] [place] [address]- 6990 Sep, [facility] [place] [facility] [address] [id number] [place] [address]- 7385 Sep, [facility] [place] [facility] [address] [id number] [place] [address]- 1034 August, [facility] [place] [facility] [address] [id number] [place] [address]- 9108 August, [facility] [place] [facility] [address] [id number] [place] [address]- 8355 August, [facility] [place] [facility] [address] [id number] [place] [address]- 3470 August, [facility] [place] [facility] [address] [id number] [place] [address]- 3259 August, [facility] [address] [id number] [place] [address]- 8116 August, [facility] [address] [id number] [place] [address]- 2546 August, [facility] [address] [facility] [id number] [place] [address]- 2546 August, [facility] [address] [id number] [place] [address]- 9516 Jul, [facility] [address] [id number] [place] [address]- 1614 Jul, [address] [id number] Jul [facility] [address] [id number] [place] [address]- 2546 Jun, [facility] [address] [id number] [place] [address]- 6396 Jun, [facility] [address] [id number] [place] [address]- 2260 Jun, [facility] [address] [id number] [place] [address]- 2176 Jun, [facility] [address] [id number] [place] [address]- 2546 Jun, [facility] [address] [id number] [address]- 2546 Jun, [facility] [address] [id number] [place] [address]- 8176 May, [facility] [address] [id number] [place] [address]- 4066 May, [facility] [address] [id number] [place] [address]- 2546 May, [facility] [address] [id number] [place] [address]- 6618 07 May, 2012 [facility] [address] [id number] [place] [address]- 7786 May, [facility] [address] [id number] [place] [address]- 7316 Apr, [facility] [address] [id number] [place] [address]- 0376 Apr, [facility] [address] [id number] [place] [address]- 7759 Apr, [facility] [address] [id number] [place] [address]- 5530 Apr, [facility] [address] [id number] [place] [address]- 0485 Apr, [facility] [address] [id number] [place] [address]- 9240 Apr, [facility] [address] [id number] [place] [address]- 2907 Mar, [facility] [address] [id number] [place] [address]- 4775 Mar, [facility] [address] [id number] [place] [address]- 7961 Mar, [facility] [address] [id number] [place] [address]- 6278 Mar, [facility] [address] [id number] [place] [address]- 7567 19 Mar, 2012 [facility] [address] [id number] [place] [address]- 0348 18 Mar, 2012 [facility] [address] [id number] [place] [address]- 4296 18 Mar, 2012 [facility] [address] [id number] [place] [address]- 0628 10 Mar, 2012 [facility] [place] [facility] [address] [id number] [place] [address]- 0911 Mar, [facility] [place] [facility] [address] [id number] [place] [address]- 7692 Mar, [facility] [place] [facility] [address] [id number] [place] [address]- 8109 Mar, [facility] [place] [facility] [address] [id number] [place] [address]- 0317 Feb, [facility] [place] [facility] [address] [id number] [place] [address]- 3880 Feb, [facility] [place] [facility] [address] [id number] [place] [address]- 2251 Feb, [facility] [place] [facility] [address] [id number] [place] [address]- 7498 Feb, [facility] [place] [facility] [address] [id number] [place] [address]- 5893 Feb, [facility] [place] [facility] [address] [id number] [place] [address]- 5004 Feb, [facility] [place] [facility] [address] [id number] [place] [address]- 0210 Feb, [facility] [place] [facility] [address] [id number] [place] [address]- 7741 Feb, [facility] [place] [facility] [address] [id number] [place] [address]- 5930 Feb, [facility] [place] [facility] [address] [id number] [place] [address]- 2904 Feb, [facility] [place] [facility] [address] [id number] [place] [address]- 9617 Feb, [facility] [place] [facility] [address] [id number] [place] [address]- 8771 Jan, [facility] [place] [facility] [address] [id number] [address]- 7875 Jan, [facility] [place] [facility] [address] [id number] [place] [address]- 6499 Jan, [facility] [place] [facility] [address] [id number] [place] 0652 Jan, [facility] [place] [facility] [address] [id number] [place] [address]- 3867 Jan, [facility] [place] [facility] [address] [id number] [place] [address]- 9442 Jan, [facility] [place] [facility] [address] [id number] [place] [address]- 7020 Jan, [facility] [place] [facility] [address] [id number] [place] [address]- 2328 24 Dec, 2011 [facility] [place] [facility] [address] [id number] [place] [address]- 1873 17 Dec, 2011 [facility] [place] [facility] [address] [id number] [place] [address]- 6410 13 Dec, 2011 [facility] [place] [facility] [address] [id number] [place] [address]- 5654 12 Dec, 2011 [facility] [place] [facility] [address] [id number] [place] [address]- 2771 23 Nov, 2011 [facility] [place] [facility] [address] [id number] [address]- 4700 20 Nov, 2011 [facility] [place] [facility] [address] [id number] [address]- 8672 17 Nov, 2011 [facility] [place] [facility] [address] [id number] [place] [address]- 5644 15 Nov, 2011 [facility] [place] [facility] [address] [id number] [place] [address]- 0950 14 Nov, 2011 [facility] [place] [facility] [address] [id number] [place] [address]- 0815 13 Nov, 2011 [facility] [place] [facility] [address] [id number] [place] [address]- 0677 Nov, [facility] [place] [facility] [address] [id number] [place] [address]- 0273 Nov, [facility] [place] [facility] [address] [id number] [place] [address]- 6446 Nov, [facility] [address] [id number] [place] [address]- 6072 Nov, [facility] [place] [facility] [address] [id number] [place] [address]- 1084 Nov, [facility] [place] [facility] [address] [id number] [place] [address]- 1930 Nov, [facility] [place] [facility] [address] [id number] [place] [address] Nov, [facility] [place] [facility] [address] [id number] [place] [address] Oct, [facility] [address] [id number] [place] [address] Oct, [facility] [place] [facility] [address] [id number] [place] [address] Oct, [facility] [address] [id number] [place] [address] Oct, [facility] [place] [facility] [address] [id number] [place] [address] Oct, [facility] [place] [facility] [address] [id number] [place] [address] Oct, [facility] [place] [facility] [address] [id number] [place] [address] Oct, [facility] [place] [facility] [address] [id number] [place] [address] Oct, [facility] [place] [facility] [address] [id number] [place] [address] Oct, [facility] [place] [facility] [address] [id number] [place] [address] Sep, [facility] [place] [facility] [address] [id number] [place] [address] Sep, [facility] [place] [facility] [address] [id number] [place] [address] Sep, [facility] [place] [facility] [address] [id number] [place] [address] Sep, [facility] [place] [facility] [address] [id number] [place] [address] Sep, [facility] [place] [facility] [address] [id number] [place] [address] Sep, [facility] [place] [facility] [address] [id number] [place] [address] Sep, [facility] [place] [facility] [address] [id number] [place] [address] Sep, [facility] [place] [facility] [address] [id number] [place] [address] August, [facility] [place] [facility] [address] [id number] [place] [address] August, [facility] [place] [facility] [address] [id number] [place] [address] August, [facility] [place] [facility] [address] [id number] [place] [address] August, [facility] [place] [facility] [address] [id number] [place] [address] August, [facility] [place] [facility] [address] [id number] [place] [address] August, [facility] [place] [facility] [address] [id number] [place] [address] August, [facility] [place] [facility] [address] [id number] [place] [address] August, [facility] [address] [facility] [id number] [place] [address] August, [facility] [address] [facility] [id number] [address] August, [facility] [address] [facility] [id number] [place] [address] August, [facility] [address] [facility] [id number] [place] [address] August, [facility] [address] [facility] [id number] [place] [address] [address] Oct, IMMUNIZATIONS No Known Immunizations SOCIAL HISTORY Never Assessed REASON FOR VISIT Returned call PLAN OF CARE VITAL SIGNS MEDICATIONS [...] Surgical History bladder surgery Hospitalization History [facility] for right groin pain 05/2011 Hospitalization History [facility] for wound on buttocks 08/2012 Hospitalization History [facility], hypoxia secondary to pneumonia 12/02-12/09 Hospitalization History Pneumonia, elevated CO2 on Bipap was in ICU 08/2013 Hospitalization History Hypoxia, Exacerbation COPD, Chest pain 09/05/15 Hospitalization History suicidal ideations-[place] 12/28 Hospitalization History hypoxia--[facility] 02/13/2016 Hospitalization History shortness of breath at june 2016 Hospitalization History Shortness of breath at august 2016 Hospitalization History SOB, chest pain at 12/2016
--- OUTSIDE RECORDS SUMMARY | 2018-02-11 12:36 | XMS REPORT ---
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 mood [affective] disorder F39 [facility] [address] [address]- 5851 18 Jun, 2015 Unspecified mood [affective] disorder [id number] [place] [address] 51612- 7768 15 Jun, 2015 Unspecified mood [affective] disorder [address] [address]- 1695 14 Jun, 2015 [facility] [address] [address]- 5058 09 Mar, 2016 Type 2 diabetes mellitus with hyperglycemia E11.65 ; Oxygen dependent Z99.81 ; Folliculitis L73.9 ; Dysuria R30.0 ; Encounter for contraceptive management Z30.9 and Dog bite W54.0XXA [facility] [id number] [place] [address] 17100- 0906 Jun, Unspecified mood [affective] disorder F39 [facility] [id number] [place] [address] 35500- 9029 Jun, Type 2 diabetes mellitus with hyperglycemia E11.65 [facility] [id number] [place] [address] 34099- 3547 May, Unspecified mood [affective] disorder F39 [facility] [id number] [place] [address] 00085- 3965 May, [facility] [id number] [place] [address] 94672- 4725 May, [facility] [id number] [place] [address] 31294- 2480 May, [facility] [id number] [place] [address] 23194- 3460 Apr, [facility] [id number] [place] [address] 67692- 4565 Apr, Unspecified mood [affective] disorder F39 [facility] [id number] [place] [address] 76143- 8982 Apr, [facility] [id number] [place] [address] 66868- 0552 Apr, [facility] [id number] [place] [address] 36902- 6071 Apr, [facility] [id number] [place] [address] 32261- 9297 Apr, Dysuria R30.0 and Well woman exam (no gynecological exam) Z00.00 [facility] [address] [address]- 8546 Mar, [facility] [id number] [place] [address] 82591- 5308 Mar, [facility] [address] [id number] Mar, Dental examination Z01.20 [facility] [id number] [place] [address] 28320- 6212 Mar, Chronic diarrhea K52.9 ; Intractable vomiting with nausea, vomiting of unspecified type R11.2 ; Cellulitis, unspecified cellulitis site L03.90 ; Type 2 diabetes mellitus with diabetic polyneuropathy E11.42 and Postinflammatory hyperpigmentation L81.0 [facility] [id number] [place] [address] 81038- 3775 Mar, Unspecified mood [affective] disorder F39 [facility] [id number] [place] [address] 51360- 9214 Mar, Unspecified mood [affective] disorder F39 [facility] [id number] [place] [address] 56676- 2468 Mar, [facility] [id number] [place] [address] 88189- 3880 Mar, [facility] [id number] [place] [address] 54836- 9066 Mar, [facility] [id number] [place] [address] 01970- 4640 Mar, [facility] [id number] [place] [address] 82204- 6509 Mar, [facility] [id number] [place] [address] 47256- 8358 Mar, [facility] [id number] [place] [address] 47578- 0705 Feb, Unspecified mood [affective] disorder F39 [facility] [address] [address]- 1304 Feb, [facility] [id number] [place] [address] 42681- 6568 Feb, [facility] [id number] [place] [address] 30253- 3642 Jan, Unspecified mood [affective] disorder F39 [facility] [id number] [id number] [id number] Jan, Encounter for dental examination Z01.20 [facility] [id number] [place] [address] 12912- 9712 Jan, [facility] [id number] [place] [address] 95334- 1263 Jan, [facility] [id number] [place] [address] 54062- 7125 Jan, [facility] [id number] [place] [address] 21528- 2004 Jan, [facility] [id number] [place] [address] 17949- 9054 Jan, [facility] [id number] [place] [address] 04087- 6326 Jan, Abdominal abscess K65.1 and Dental caries K02.9 [facility] [id number] [place] [address] 67271- 9130 Jan, [facility] [id number] [place] [address] 17704- 8211 Dec, Diabetes with neurological manifestations, type II or unspecified type, not stated as uncontrolled 250.60 ; Essential hypertension, benign 401.1 ; Concussion 850.9 and Skin texture changes 782.8 [facility] [id number] [place] [address] 24074- 9773 Dec, [facility] [address] [place] [address] 2542 24 Sep, 2014 [facility] [address] [address] 2546 22 Sep, 2014 [facility] [address] [address] 2546 21 Sep, 2014 [facility] [address] [address] 2546 17 Sep, 2014 Affective disorder 296.90 [facility] [id number] [place] [address] 29951 2546 14 Sep, 2014 [facility] [id number] [place] [address] 83368 2543 10 Dec, 2014 Affective disorder 296.90 [facility] [address] [address] 2546 04 Sep, 2014 [facility] [place] [facility] [id number] [place] [address] 32032 2546 04 Dec, 2014 [facility] [address] [address] 2541 04 Dec, 2014 [facility] [address] [address] 2549 03 Dec, 2014 [facility] [address] [address] 2544 Nov, 2014 Affective disorder 296.90 [facility] [address] [address] 2546 Nov, 2014 [facility] [address] [address] 2546 Nov, 2014 Affective disorder 296.90 [facility] [address] [address] 2546 Nov, Diarrhea 787.91 [facility] [place] [facility] [address] [address] 2546 Nov, 2014 [facility] [place] [facility] [id number] [place] [address] 84216 2546 Nov, Diarrhea 787.91 [facility] [id number] [place] [address] 58006 2546 Nov, Diarrhea 787.91 and Hyperlipidemia 272.4 [facility] [id number] [place] [address] 72826 2546 Nov, Diarrhea 787.91 [facility] [id number] [place] [address] 74285 2546 Nov, Affective disorder 296.90 [facility] [id number] [place] [address] 04932- 9811 Nov, Affective disorder 296.90 [facility] [id number] [place] [address] 57032- 4143 17 Nov, 2014 Affective disorder 296.90 [facility] [id number] [place] [address] 26350- 6551 Nov, [facility] [id number] [place] [address] 77522- 2667 Nov, [facility] [id number] [place] [address] 59857- 5054 Nov, [facility] [id number] [place] [address] 13587- 4188 Nov, Episodic mood disorder 296.90 [facility] [id number] [place] [address] 24961- 0766 Nov, [facility] [id number] [place] [address] 04687- 2549 Nov, [facility] [id number] [place] [address] 86971- 2812 Nov, [facility] [id number] [place] [address] 07406- 6233 Nov, [facility] [id number] [place] [address] 07762- 3734 Nov, [facility] [address] [address]- 4733 Nov, Lymphedema 457.1 ; Hyperlipidemia 272.4 ; Essential hypertension, benign 401.1 and Numbness of toes 782.0 [facility] [address]- 5910 Nov, Episodic mood disorder 296.90 [facility] [id number] [place] [address] 99041- 4302 Oct, [facility] [id number] [place] [address] 15810- 4775 Oct, [facility] [address] [address]- 2471 Oct, [facility] [address] [address]- 8295 Oct, [facility] [address] [address]- 8054 Oct, [facility] [address] [address]- 4259 Oct, [facility] [address] [address]- 6525 Oct, [facility] [address] [address]- 4664 Oct, [facility] [address] [address]- 8147 Oct, Episodic mood disorder 296.90 [facility] [address]- 4527 Sep, [facility] [address] [address]- 8630 Sep, [facility] [address] 8000 Sep, [facility] [address] [address]- 7322 Sep, [facility] [address] [address]- 1822 Sep, [facility] [address] [address]- 1879 Sep, Episodic mood disorder 296.90 [facility] [id number] [place] [address] 24077- 6787 Sep, Unspecified episodic mood disorder 296.90 [facility] [address] [address]- 9283 Sep, [facility] [id number] [place] [address] 87207- 6115 Sep, [facility] [id number] [place] [address] 95921- 7276 Sep, Episodic mood disorder 296.90 [facility] [address] [address]- 8984 Sep, [facility] [id number] [place] [address] 03907- 3472 Sep, [facility] [address] [address]- 6423 Sep, [facility] [address] [address]- 3255 Sep, Hematemesis 578.0 and Vomiting 787.03 [facility] [address] [address]- 6345 09 Sep, 2014 Episodic mood disorder 296.90 [facility] [address] [address]- 6647 08 Sep, 2014 [facility] [address] [address]- 7276 Sep, [facility] [id number] [address]- 0789 Sep, Diabetes mellitus without mention of complication, type II or unspecified type, not stated as uncontrolled 250.00 and Other chronic pain 338.29 [facility] [address] [address]- 3646 Sep, Episodic mood disorder 296.90 [facility] [address] [address]- 4488 Sep, [facility] [id number] [place] [address] Sep, Episodic mood disorder 296.90 [facility] [id number] [place] [id number] Sep, [facility] [id number] [address] August, [facility] [id number] [place] [address] August, [facility] [id number] [place] [address] August, Episodic mood disorder 296.90 [facility] [id number] [address] August, [facility] [id number] [address] August, Unspecified episodic mood disorder 296.90 [facility] [id number] [address] August, Vomiting 787.03 [facility] [id number] [address] August, [facility] [id number] [address] August, [facility] [id number] [address] August, [facility] [address] [facility] [id number] [place] [address] August, [facility] [place] [facility] [address] [place] [address] [id number] [place] [address] August, [facility] [place] [facility] [address] [place] [address] [id number] [place] [address] 28 Jul, 2014 [facility] [place] [facility] [address] [place] [address] [id number] [place] [address] 14 Jul, 2014 [facility] [place] [facility] [address] [place] [address] [id number] [place] [address] Jul, [facility] [place] [facility] [address] [place] [address] [id number] [place] [address] 30 Jun, 2014 [facility] [place] [facility] [address] [place] [address] [id number] [place] [address] Jun, [facility] [place] [facility] [address] [place] [address] [id number] [place] [address] 30 Jun, 2014 [facility] [place] [facility] [address] [place] [address] [id number] [place] [address] 30 Jun, 2014 [facility] [place] [facility] [address] [place] [address] [id number] [place] [address]- [address] Jun, [facility] [place] [facility] [address] [place] [address] [id number] [place] [address] Jun, [facility] [place] [facility] [address] [id number] [place] [address]- 6525 30 Jun, 2014 [facility] [place] [facility] [address] [id number] [place] [address]- 7388 30 Jun, 2014 [facility] [place] [facility] [address] [id number] [place] [address] 2843 Jun, [facility] [place] [facility] [address] [id number] [place] [address]- 8732 Jun, [facility] [place] [facility] [address] [id number] [place] [address]- 6682 Jun, [facility] [place] [facility] [address] [id number] [place] [address]- 4084 Jun, [facility] [place] [facility] [address] [id number] [place] [address]- 3331 Jun, [facility] [place] [facility] [address] [id number] [place] [address]- 2860 Jun, [facility] [place] [facility] [address] [id number] [place] [address]- 5855 Jun, [facility] [place] [facility] [address] [id number] [place] [address]- 2282 Jun, [facility] [place] [facility] [address] [id number] [place] [address]- 8631 Jun, [facility] [place] [facility] [address] [id number] [place] [address]- 9949 Jun, [facility] [place] [facility] [address] [id number] [place] [address]- 8550 Jun, [facility] [place] [facility] [address] [id number] [place] [address]- 8061 Jun, [facility] [place] [facility] [address] [id number] [place] [address]- 1065 Jun, [facility] [place] [facility] [address] [id number] [place] [address]- 2672 Jun, [facility] [place] [facility] [address] [id number] [place] [address]- 7029 Jun, [facility] [place] [facility] [address] [id number] [place] [address]- 0029 Jun, [facility] [place] [facility] [address] [id number] [place] [address]- 4930 Jun, [facility] [place] [facility] [address] [id number] [place] [address]- 7272 19 Jun, 2014 [facility] [place] [facility] [address] [id number] [place] [address]- 5755 19 Jun, 2014 [facility] [place] [facility] [address] [id number] [place] [address]- 0367 18 Jun, 2014 [facility] [place] [facility] [address] [id number] [place] [address]- 7795 18 Jun, 2014 [facility] [place] [facility] [address] [id number] [place] [address]- 1140 17 Jun, 2014 [facility] [place] [facility] [address] [id number] [place] [address]- 7936 17 Jun, 2014 [facility] [place] [facility] [address] [id number] [place] [address]- 1815 16 Jun, 2014 [facility] [place] [facility] [address] [id number] [place] [address]- 7804 16 Jun, 2014 [facility] [place] [facility] [address] [id number] [place] [address]- 1079 16 Jun, 2014 [facility] [place] [facility] [address] [id number] [place] [address]- 8876 16 Jun, 2014 [facility] [place] [facility] [address] [id number] [place] [address]- 3565 16 Jun, 2014 [facility] [place] [facility] [address] [id number] [place] [address]- 9393 16 Jun, 2014 [facility] [place] [facility] [address] [id number] [place] [address]- 7587 13 Jun, 2014 [facility] [place] [facility] [address] [id number] [place] [address]- 5340 13 Jun, 2014 [facility] [place] [facility] [address] [id number] [place] [address]- 9379 12 Jun, 2014 [facility] [place] [facility] [address] [id number] [place] [address]- 2354 12 Jun, 2014 [facility] [place] [facility] [address] [id number] [place] [address]- 7417 09 Jun, 2014 [facility] [place] [facility] [address] [id number] [place] [address]- 6494 Jun, 2014 [facility] [place] [facility] [address] [id number] [place] [address]- 9449 Jun, 2014 [facility] [place] [facility] [address] [id number] [place] [address]- 3818 Jun, 2014 [facility] [place] [facility] [address] [id number] [place] [address]- 9597 Jun, 2014 [facility] [place] [facility] [address] [id number] [place] [address]- 6174 Jun, 2014 [facility] [place] [facility] [address] [id number] [place] [address]- 2694 Jun, 2014 [facility] [place] [facility] [address] [id number] [place] [address]- 7331 Jun, 2014 [facility] [place] [facility] [address] [id number] [place] [address]- 7677 Jun, 2014 [facility] [place] [facility] [address] [id number] [place] [address]- 4688 Jun, 2014 [facility] [place] [facility] [address] [id number] [place] [address]- 9709 Jun, 2014 [facility] [place] [facility] [address] [id number] [place] [address]- 2483 Jun, 2014 [facility] [place] [facility] [address] [id number] [place] [address]- 4412 Jun, 2014 [facility] [place] [facility] [address] [id number] [place] [address]- 1576 Jun, [facility] [place] [facility] [address] [id number] [place] [address]- 5413 Jun, 2014 [facility] [place] [facility] [address] [id number] [place] [address]- 0707 Jun, 2014 [facility] [place] [facility] [address] [id number] [place] [address]- 1684 May, 2014 [facility] [place] [facility] [address] [facility] [id number] [place] [address]- 9456 May, 2014 [facility] [place] [facility] [address] [facility] [id number] [place] [address] 2546 25 May, 2014 [facility] [place] [facility] [address] [facility] [id number] [place] [address]- 5026 May, 2014 [facility] [place] [facility] [address] [facility] [id number] [place] [address]- 2549 24 May, 2014 [facility] [place] [facility] [address] [facility] [id number] [place] [address]- 0999 24 May, 2014 [facility] [place] [facility] [address] [facility] [id number] [place] [address]- 7791 20 May, 2014 [facility] [place] [facility] [address] [facility] [id number] [place] [address]- 7383 20 May, 2014 [facility] [place] [facility] [address] [facility] [id number] [place] [address]- 2543 20 May, 2014 [facility] [place] [facility] [address] [facility] [id number] [place] [address]- 6205 20 May, 2014 [facility] [place] [facility] [address] [facility] [id number] [place] [address]- 4121 18 May, 2014 [facility] [place] [facility] [address] [facility] [id number] [place] [address]- 2546 18 May, 2014 [facility] [place] [facility] [address] [facility] [id number] [place] [address]- 2541 13 May, 2014 [facility] [place] [facility] [address] [facility] [id number] [place] [address]- 7749 13 May, 2014 [facility] [place] [facility] [address] [facility] [id number] [place] [address]- 2546 11 May, 2014 [facility] [place] [facility] [address] [facility] [id number] [place] [address] May, 2014 [facility] [place] [facility] [address] [id number] [place] [address]- 3585 May, 2014 [facility] [place] [facility] [address] [id number] [place] [address]- 0152 May, 2014 [facility] [place] [facility] [address] [facility] [id number] [place] [address]- 8448 May, 2014 [facility] [place] [facility] [address] [facility] [id number] [place] [address]- 5022 May, 2014 [facility] [place] [facility] [address] [facility] [id number] [place] [address]- 3366 May, 2014 [facility] [place] [facility] [address] [facility] [id number] [place] [address]- 5953 May, 2014 [facility] [place] [facility] [address] [facility] [id number] [place] [address]- 7751 May, 2014 [facility] [place] [facility] [address] [facility] [id number] [place] [address]- 9231 May, 2014 [facility] [place] [facility] [address] [facility] [id number] [place] [address]- 6894 May, 2014 [facility] [place] [facility] [address] [facility] [id number] [place] [address]- 3348 May, 2014 [facility] [place] [facility] [address] [facility] [id number] [place] [address]- 5567 May, 2014 [facility] [place] [facility] [address] [facility] [id number] [address]- 5901 Apr, [facility] [place] [facility] [address] [facility] [id number] [place] [address]- 7422 Apr, [facility] [place] [facility] [address] [facility] [id number] [place] [address]- 5182 Apr, [facility] [place] [facility] [address] [facility] [id number] [place] [address]- 1453 Apr, [facility] [place] [facility] [address] [id number] [place] [address]- 1006 Apr, [facility] [place] [facility] [address] [id number] [place] [address]- 8070 Apr, [facility] [place] [facility] [address] [id number] [place] [address]- 8967 Apr, [facility] [place] [facility] [address] [id number] [place] [address]- 4613 Apr, [facility] [place] [facility] [address] [id number] [place] [address]- 7003 Apr, [facility] [place] [facility] [address] [id number] [place] [address]- 9203 Apr, [facility] [place] [facility] [address] [id number] [place] [address]- 7869 Apr, [facility] [place] [facility] [address] [id number] [place] [address]- 1732 Apr, [facility] [place] [facility] [address] [id number] [place] [address]- 1683 Apr, [facility] [place] [facility] [address] [id number] [place] [address]- 8136 Apr, [facility] [place] [facility] [address] [id number] [place] [address]- 4877 Apr, [facility] [place] [facility] [address] [id number] [place] [address]- 4558 Apr, [facility] [place] [facility] [address] [id number] [place] [address]- 5572 Apr, [facility] [place] [facility] [address] [id number] [place] [address]- 9567 Apr, [facility] [place] [facility] [address] [id number] [place] [address]- 1627 Apr, [facility] [place] [facility] [address] [id number] [place] [address]- 0168 Apr, [facility] [place] [facility] [address] [id number] [place] [address]- 6147 Mar, [facility] [place] [facility] [address] [id number] [place] [address]- 4876 Mar, [facility] [place] [facility] [address] [id number] [place] [address]957 Mar, [facility] [place] [facility] [address] [id number] [place] [address]- 3281 Mar, [facility] [place] [facility] [address] [id number] [place] [address]- 3747 Mar, [facility] [place] [facility] [address] [id number] [place] [address]- 7858 Mar, [facility] [place] [facility] [address] [id number] [place] [address]- 3515 Mar, [facility] [place] [facility] [address] [id number] [place] [address]- 9859 Mar, [facility] [place] [facility] [address] [id number] [place] [address]- 8150 15 Mar, 2014 [facility] [place] [facility] [address] [id number] [place] [address]- 3480 15 Mar, 2014 [facility] [place] [facility] [address] [id number] [place] [address]- 7247 15 Mar, 2014 [facility] [place] [facility] [address] [id number] [place] [address]- 6416 15 Mar, 2014 [facility] [place] [facility] [address] [id number] [place] [address]- 8672 Mar, [facility] [place] [facility] [address] [id number] [place] 8507 Mar, [facility] [place] [facility] [address] [id number] [place] 7220 Mar, [facility] [place] [facility] [address] [id number] [place] [address]- 7506 Mar, [facility] [place] [facility] [address] [id number] [place] [address]- 6618 Feb, [facility] [place] [facility] [address] [id number] [place] [address]- 2139 Feb, [facility] [place] [facility] [address] [id number] [place] [address]- 3471 Feb, [facility] [place] [facility] [address] [id number] [place] [address]- 0175 Feb, [facility] [place] [facility] [address] [id number] [place] [address]- 3602 Feb, [facility] [place] [facility] [address] [id number] [place] [address]- 4610 Feb, [facility] [place] [facility] [address] [id number] [place] [address]- 0754 Feb, [facility] [place] [facility] [address] [id number] [place] [address]- 7830 Feb, [facility] [place] [facility] [address] [id number] [place] [address]- 0580 Feb, [facility] [place] [facility] [address] [id number] [place] [address]- 1986 Feb, [facility] [place] [facility] [address] [id number] [place] [address]- 5010 Feb, [facility] [place] [facility] [address] [id number] [place] [address]- 2902 17 Feb, 2014 [facility] [place] [facility] [address] [id number] [place] [address]- 8710 17 Feb, 2014 [facility] [place] [facility] [address] [id number] [place] [address]- 7653 14 Feb, 2014 [facility] [place] [facility] [address] [id number] [place] [address]- 3554 Feb, [facility] [place] [facility] [address] [id number] [place] [address]- 2971 Feb, [facility] [place] [facility] [address] [id number] [place] [address]- 4982 Feb, [facility] [place] [facility] [address] [id number] [place] [address]- 7207 Feb, [facility] [place] [facility] [address] [id number] [place] [address]- 2168 Feb, [facility] [place] [facility] [address] [id number] [place] [address]- 2664 Feb, [facility] [place] [facility] [address] [id number] [place] [address]- 5586 Feb, [facility] [place] [facility] [address] [id number] [place] [address]- 6344 Jan, [facility] [place] [facility] [address] [id number] [place] [address]- 5489 Jan, [facility] [place] [facility] [address] [id number] [place] [address]- 7572 Jan, [facility] [place] [facility] [address] [id number] [place] [address]- 5606 Jan, [facility] [place] [facility] [address] [id number] [place] [address]- 7703 Jan, [facility] [place] [facility] [address] [id number] [place] [address]- 6988 Jan, [facility] [place] [facility] [address] [id number] [place] [address]- 0878 Jan, [facility] [place] [facility] [address] [id number] [place] [address]- 3209 Jan, [facility] [place] [facility] [address] [id number] [place] [address]- 2085 Jan, [facility] [place] [facility] [address] [id number] [place] [address]- 5577 20 Jan, 2013 [facility] [place] [facility] [address] [id number] [place] [address]- 5094 17 Jan, 2013 [facility] [place] [facility] [address] [id number] [place] [address]- 7228 17 Jan, 2013 [facility] [place] [facility] [address] [id number] [place] [address]- 8081 17 Jan, 2013 [facility] [place] [facility] [address] [id number] [place] [address]- 6747 17 Jan, 2013 [facility] [place] [facility] [address] [id number] [place] [address]- 2819 15 Jan, 2013 [facility] [place] [facility] [address] [id number] [place] [address]- 0918 15 Jan, 2013 [facility] [place] [facility] [address] [id number] [place] [address]- 4036 14 Jan, 2014 [facility] [place] [facility] [address] [id number] [place] [address]- 6513 14 Jan, 2014 [facility] [place] [facility] [address] [id number] [place] [address]- 3724 13 Jan, 2014 [facility] [place] [facility] [address] [id number] [place] [address]- 0430 13 Jan, 2013 [facility] [place] [facility] [address] [id number] [place] [address]- 9170 13 Jan, 2013 [facility] [place] [facility] [address] [id number] [address]- 5031 13 Jan, 2013 [facility] [place] [facility] [address] [id number] [place] [address]- 7842 10 Jan, 2013 [facility] [place] [facility] [address] [id number] [place] [address]- 2629 02 Jan, 2013 [facility] [place] [facility] [address] [id number] [place] [address]- 1893 02 Jan, 2013 [facility] [place] [facility] [address] [id number] [place] [address] 2541 25 Sep, 2013 [facility] [place] [facility] [address] [id number] [place] [address] 2546 25 Sep, 2013 [facility] [place] [facility] [address] [id number] [place] [address]- 2546 23 Sep, 2013 [facility] [place] [facility] [address] [id number] [place] [address] 2546 23 Sep, 2013 [facility] [place] [facility] [address] [id number] [place] [address]- 2545 19 Sep, 2013 [facility] [place] [facility] [address] [id number] [place] [address]- 2189 19 Sep, 2013 [facility] [place] [facility] [address] [id number] [place] [address]- 1595 17 Sep, 2013 [facility] [place] [facility] [address] [id number] [place] [address]- 2544 17 Sep, 2013 [facility] [place] [facility] [address] [id number] [place] [address]- 2543 09 Sep, 2013 [facility] [place] [facility] [address] [id number] [place] [address]- 2543 09 Sep, 2013 [facility] [place] [facility] [address] [id number] [place] [address]- 6623 08 Sep, 2013 [facility] [place] [facility] [address] [id number] [place] [address]- 2548 08 Sep, 2013 [facility] [place] [facility] [address] [id number] [place] [address] 2549 04 Sep, 2013 [facility] [place] [facility] [address] [id number] [place] [address] 2546 04 Sep, 2013 [facility] [place] [facility] [address] [id number] [place] [address]- 2544 02 Sep, 2013 [facility] [place] [facility] [address] [id number] [id number] 5798 Dec, [facility] [place] [facility] [address] [id number] [place] [address]- 7251 Dec, [facility] [place] [facility] [address] [id number] [place] [address]- 2824 Dec, [facility] [place] [facility] [address] [id number] [place] [address]- 2369 Nov, [facility] [place] [facility] [address] [id number] [place] [address]- 0731 Nov, [facility] [place] [facility] [address] [id number] [place] [address]- 6320 Nov, [facility] [place] [facility] [address] [id number] [place] [address]- 0344 Nov, [facility] [place] [facility] [address] [id number] [place] [address]- 9488 Nov, [facility] [place] [facility] [address] [id number] [place] [address]- 9705 Nov, [facility] [place] [facility] [address] [id number] [place] [address]- 3394 Nov, [facility] [place] [facility] [address] [id number] [place] [address]- 4689 Nov, [facility] [place] [facility] [address] [id number] [place] [address]- 7229 Nov, [facility] [place] [facility] [address] [id number] [place] [address]- 1324 Nov, [facility] [place] [facility] [address] [id number] [place] [address]- 2111 Nov, [facility] [place] [facility] [address] [id number] [place] [address]- 2192 Nov, [facility] [place] [facility] [address] [id number] [place] [address]- 5077 Oct, [facility] [place] [facility] [address] [id number] [place] [address]- 9639 Oct, [facility] [place] [facility] [address] [id number] [place] [address]- 7988 Oct, [facility] [place] [facility] [address] [id number] [place] [address] Oct, [facility] [place] [facility] [address] [id number] [place] [address] Oct, [facility] [place] [facility] [address] [id number] [place] [address] Oct, [facility] [place] [facility] [address] [id number] [place] [address] Oct, [facility] [place] [facility] [address] [id number] [place] [address] Oct, [facility] [place] [facility] [address] [id number] [place] [address] Oct, [facility] [place] [facility] [address] [id number] [place] [address]- 16[address] Oct, [facility] [place] [facility] [address] [id number] [place] [address] Oct, [facility] [place] [facility] [address] [id number] [place] [address] Oct, [facility] [place] [facility] [address] [id number] [place] [address] Oct, [facility] [place] [facility] [address] [id number] [place] [address]- [address] Oct, [facility] [place] [facility] [address] [id number] [place] [address] Oct, [facility] [place] [facility] [address] [id number] [place] [address]- [address] Oct, [facility] [place] [facility] [address] [id number] [place] [address]- [address] Oct, [facility] [place] [facility] [address] [id number] [place] [address]- [address] 27 Sep, 2013 [facility] [place] [facility] [address] [id number] [place] [address]- [address] 27 Sep, 2013 [facility] [place] [facility] [address] [id number] [place] [address]- 7964 20 Sep, 2013 [facility] [place] [facility] [address] [id number] [place] [address]- 267[address] Sep, [facility] [place] [facility] [address] [id number] [place] [address]- [address]28 18 Sep, 2013 [facility] [place] [facility] [address] [id number] [place] [address]- [address] 18 Sep, 2013 [facility] [place] [facility] [address] [id number] [place] [address]- [address]778 17 Sep, 2013 [facility] [place] [facility] [address] [id number] [place] [address]- 4947 17 Sep, 2013 [facility] [place] [facility] [address] [id number] [place] [address]- [address] Sep, [facility] [place] [facility] [address] [id number] [place] [address]- 0981 Sep, [facility] [place] [facility] [address] [id number] [place] [address]- 2520 Sep, [facility] [place] [facility] [address] [id number] [place] [address]- 59[address] 11 Sep, 2013 [facility] [place] [facility] [address] [id number] [place] [address]- 1756 10 Sep, 2013 [facility] [place] [facility] [address] [id number] [place] [address]- 487[address] 10 Sep, 2013 [facility] [place] [facility] [address] [id number] [place] [address]- 98[address] 09 Sep, 2013 [facility] [place] [facility] [address] [id number] [place] [address]- 1580 Sep, [facility] [place] [facility] [address] [id number] [place] [address]- 39[address] Sep, [facility] [place] [facility] [address] [id number] [place] [address]- 67[address] Sep, [facility] [place] [facility] [address] [id number] [place] [address]- [address] Sep, [facility] [place] [facility] [address] [id number] [place] [address]- 99[address] Sep, [facility] [place] [facility] [address] [id number] [place] [address]- [address] Sep, [facility] [place] [facility] [address] [id number] [place] [address]- 477[address] Sep, [facility] [place] [facility] [address] [id number] [place] [address]- 97[address] August, [facility] [place] [facility] [address] [id number] [place] [address]- 1660 August, [facility] [place] [facility] [address] [id number] [place] [address]- 47[address] August, [facility] [place] [facility] [address] [id number] [place] [address]- 85[address] August, [facility] [place] [facility] [address] [id number] [place] [address]- 5785 August, [facility] [place] [facility] [address] [id number] [address] August, [facility] [place] [facility] [address] [id number] [place] [address]- 3944 August, [facility] [place] [facility] [address] [id number] [place] [address]- 5787 August, [facility] [place] [facility] [address] [id number] [place] [address]- 2734 August, [facility] [place] [facility] [address] [id number] [place] [address]- 3579 August, [facility] [place] [facility] [address] [id number] [place] [address]- 8346 August, [facility] [place] [facility] [address] [id number] [place] [address]- 117[address] Jul, [facility] [place] [facility] [address] [id number] [place] [address]- 0398 Jul, [facility] [place] [facility] [address] [id number] [place] [address]- 7324 Jul, [facility] [place] [facility] [address] [id number] [place] [address]- 289[address] Jul, [facility] [place] [facility] [address] [id number] [place] [address]- 9629 Jul, [facility] [place] [facility] [address] [id number] [place] [address]- 3575 Jul, [facility] [place] [facility] [address] [id number] [place] [address]- 7886 Jul, [facility] [place] [facility] [address] [id number] [place] [address]- 5330 Jul, [facility] [place] [facility] [address] [id number] [place] [address]- 2031 Jul, [facility] [place] [facility] [address] [id number] [place] [address]- 3150 Jul, [facility] [place] [facility] [address] [id number] [place] [address]- 0924 16 Jul, 2013 [facility] [place] [facility] [address] [id number] [place] [address]- 2000 Jul, [facility] [place] [facility] [address] [id number] [place] [address]- 9387 Jul, [facility] [place] [facility] [address] [id number] [place] [address]- 8502 Jul, [facility] [place] [facility] [address] [id number] [place] [address]- 8942 Jul, [facility] [place] [facility] [address] [id number] [place] [address]- 5573 Jul, [facility] [place] [facility] [address] [id number] [place] [address]- 2526 Jul, [facility] [place] [facility] [address] [id number] [place] [address]- 1284 Jul, [facility] [place] [facility] [address] [id number] [place] [address]- 74[address] Jul, [facility] [place] [facility] [address] [id number] [place] [address] Jul, [facility] [place] [facility] [address] [id number] [place] [address] Jul, [facility] [place] [facility] [address] [id number] [place] [address] Jul, [facility] [place] [facility] [address] [id number] [place] [address] 1708 Jul, [facility] [place] [facility] [address] [id number] [place] [address] Jun, [facility] [place] [facility] [address] [id number] [place] [address] 8772 Jun, [facility] [place] [facility] [address] [id number] [place] [address]- 0966 Jun, [facility] [place] [facility] [address] [id number] [place] [address]- 1535 Jun, [facility] [place] [facility] [address] [id number] [place] [address]- 6289 Jun, [facility] [place] [facility] [address] [id number] [place] [address]- 7270 Jun, [facility] [place] [facility] [address] [id number] [place] [address]- 0186 Jun, [facility] [place] [facility] [address] [id number] [place] [address] 7119 Jun, [facility] [place] [facility] [address] [id number] [place] [address]- 0930 Jun, [facility] [place] [facility] [address] [id number] [place] [address]- 9091 Jun, [facility] [place] [facility] [address] [id number] [place] [address]- 9355 Jun, [facility] [place] [facility] [address] [id number] [place] [address]- 1609 Jun, [facility] [place] [facility] [address] [id number] [place] [address]- 8061 May, [facility] [place] [facility] [address] [id number] [place] [address]- 0461 May, [facility] [place] [facility] [address] [id number] [place] [address]- 9254 Apr, [facility] [place] [facility] [address] [id number] [place] [address]- 8338 Apr, [facility] [place] [facility] [address] [id number] [place] [address]- 1574 Apr, [facility] [place] [facility] [address] [id number] [place] [address]- 8057 Apr, [facility] [place] [facility] [address] [id number] [place] [address]- 0414 Apr, [facility] [place] [facility] [address] [id number] [place] [address]- 9571 Apr, [facility] [place] [facility] [address] [id number] [place] [address]- 0092 Apr, [facility] [place] [facility] [address] [id number] [place] [address]- 0191 Apr, [facility] [place] [facility] [address] [id number] [place] [address]- 2060 14 Apr, 2013 [facility] [address] [id number] [place] [address]- 2183 Apr, [facility] [place] [facility] [address] [id number] [place] [address] Apr, [facility] [place] [facility] [address] [id number] [place] [address]- 1667 16 Mar, 2013 [facility] [place] [facility] [address] [id number] [place] [address]- 7945 Mar, [facility] [place] [facility] [address] [id number] [place] [address]- 4933 Mar, [facility] [place] [facility] [address] [id number] [place] [address]- 3978 Mar, [facility] [place] [facility] [address] [id number] [place] [address]- 3643 Feb, [facility] [place] [facility] [address] [id number] [place] [address]- 5603 Feb, [facility] [place] [facility] [address] [id number] [place] [address]- 4482 Feb, [facility] [place] [facility] [address] [id number] [place] [address]- 4411 Feb, [facility] [place] [facility] [address] [id number] [place] [address]- 3670 Feb, [facility] [place] [facility] [address] [id number] [place] [address]- 8157 Feb, [facility] [place] [facility] [address] [id number] [place] [address]- 5471 Feb, [facility] [place] [facility] [address] [id number] [place] [address]- 2224 Feb, [facility] [place] [facility] [address] [id number] [place] [address]- 6321 Feb, [facility] [place] [facility] [address] [id number] [place] [address]- 9562 Feb, [facility] [place] [facility] [address] [id number] [place] [address]- 8931 Feb, [facility] [place] [facility] [address] [id number] [place] [address]- 8796 Jan, [facility] [place] [facility] [address] [id number] [place] [address]- 4788 Jan, [facility] [place] [facility] [address] [id number] [place] [address]- 7180 Jan, [facility] [place] [facility] [address] [id number] [place] [address]- 2637 Jan, [facility] [place] [facility] [address] [id number] [place] [address]- 4408 Jan, [facility] [place] [facility] [address] [id number] [place] [address] Jan, [facility] [place] [facility] [address] [id number] [place] [address]- 3879 Jan, [facility] [place] [facility] [address] [id number] [place] [address]- 7899 Jan, [facility] [place] [facility] [address] [id number] [place] [address]- [address]754 30 Dec, 2012 [facility] [place] [facility] [address] [id number] [place] [address]- 8687 25 Dec, 2012 [facility] [place] [facility] [address] [id number] [place] [address]- 6173 18 Sep2012 [facility] [place] [facility] [address] [id number] [place] [address]31 17 Sep, 2012 [facility] [place] [facility] [address] [id number] [place] [address]- 4669 17 Dec, 2012 [facility] [place] [facility] [address] [id number] [place] [address]- 8490 16 Dec, 2012 [facility] [address] [id number] [place] [address]- 3103 13 Dec, 2012 [facility] [place] [facility] [address] [id number] [place] [address]- 1306 11 Dec, 2012 [facility] [place] [facility] [address] [id number] [place] [address]- 8655 05 Dec, 2012 [facility] [place] [facility] [address] [id number] [place] [address]- 3503 04 Dec, 2012 [facility] [place] [facility] [address] [id number] [place] [address]- 7310 30 Nov, 2012 [facility] [place] [facility] [address] [id number] [place] [address]- 1538 29 Nov, 2012 [facility] [address] [id number] [place] [address]- 7467 Nov, [facility] [place] [facility] [address] [id number] [place] [address]- 7631 Nov, [facility] [place] [facility] [address] [id number] [place] [address]- 4367 Nov, [facility] [place] [facility] [address] [id number] [place] [address]- 7389 Nov, [facility] [place] [facility] [address] [id number] [place] [address]- 0538 Nov, [facility] [place] [facility] [address] [id number] [place] [address]- 4820 Oct, [facility] [place] [facility] [address] [id number] [place] [address]- 5195 Oct, [facility] [place] [facility] [address] [id number] [place] [address]- 9680 Oct, [facility] [place] [facility] [address] [id number] [place] [address]- 1868 Oct, [facility] [place] [facility] [address] [id number] [place] [address]- 9419 15 Oct, 2012 [facility] [place] [facility] [address] [id number] [place] [address]- 0173 Oct, [facility] [place] [facility] [address] [id number] [place] [address]- 7724 Sep, [facility] [place] [facility] [address] [id number] [place] [address]- 3333 Sep, [facility] [place] [facility] [address] [id number] [place] [address]- 7669 Sep, [facility] [place] [facility] [address] [id number] [place] [address]- 3581 14 Sep, 2012 [facility] [place] [facility] [address] [id number] [place] [address]- 6115 Sep, [facility] [place] [facility] [address] [id number] [place] [address]- 2874 Sep, [facility] [place] [facility] [address] [id number] [place] [address]- 3481 Sep, [facility] [place] [facility] [address] [id number] [place] [address]- 4559 Sep, [facility] [place] [facility] [address] [id number] [place] [address]- 5744 Sep, [facility] [place] [facility] [address] [id number] [place] [address]- 8928 August, [facility] [place] [facility] [address] [id number] [place] [address]- 5501 August, [facility] [place] [facility] [address] [id number] [place] [address]- 3625 August, [facility] [place] [facility] [address] [id number] [place] [address]- 8574 August, [facility] [place] [facility] [address] [id number] [place] [address]- 5576 August, [facility] [address] [id number] [place] [address]- 4776 August, [facility] [address] [id number] [place] [address]- 2546 August, [facility] [address] [facility] [id number] [place] [address]- 2546 August, [facility] [address] [id number] [place] [address]- 3826 Jul, [facility] [address] [facility] [id number] [place] [address]- 2798 Jul, [facility] [address] [place] [id number] Jul [facility] [address] [facility] [id number] [place] [address]- 6636 Jun, [facility] [address] [id number] [place] [address]- 9727 Jun, [facility] [address] [id number] [place] [address]- 0038 Jun, [facility] [address] [id number] [place] [address]- 7786 Jun, [facility] [address] [id number] [place] [address]- 2546 Jun, [facility] [address] [id number] [place] [address]- 2526 Jun, [facility] [address] [id number] [place] [address]- 7298 May, [facility] [address] [id number] [place] [address]- 1646 May, [facility] [address] [id number] [place] [address]- 2546 May, [facility] [address] [id number] [place] [address]- 5583 07 May, 2012 [facility] [address] [id number] [place] [address]- 8156 May, [facility] [place] [facility] [address] [id number] [place] [address]- 3086 Apr, [facility] [address] [id number] [place] [address]- 1966 Apr, [facility] [place] [facility] [address] [id number] [place] [address]- 4912 Apr, [facility] [address] [id number] [place] [address]- 1252 Apr, [facility] [address] [id number] [place] [address]- 3373 Apr, [facility] [address] [id number] [place] [address]- 6404 Apr, [facility] [address] [id number] [place] [address]- 6352 26 Mar, 2012 [facility] [address] [id number] [place] [address]- 5827 Mar, [facility] [address] [facility] [id number] [place] [address]- 7828 Mar, [facility] [place] [facility] [address] [id number] [place] [address]- 0806 19 Mar, 2012 [facility] [place] [facility] [address] [id number] [place] [address] 2547 19 Mar, 2012 [facility] [place] [facility] [address] [id number] [place] [address] 2547 18 Mar, 2012 [facility] [place] [facility] [address] [id number] [place] [address] 2544 18 Mar, 2012 [facility] [address] [id number] [place] [address]- 8365 Mar, [facility] [place] [facility] [address] [id number] [place] [address]- 2004 Mar, [facility] [place] [facility] [address] [id number] [place] [address]- 3305 Mar, [facility] [place] [facility] [address] [id number] [place] [address]- 7895 Mar, [facility] [place] [facility] [address] [id number] [place] [address]- 3707 Feb, [facility] [place] [facility] [address] [id number] [place] [address]- 8544 Feb, [facility] [place] [facility] [address] [id number] [place] [address]- 0698 Feb, [facility] [place] [facility] [address] [id number] [place] [address]- 4050 Feb, [facility] [place] [facility] [address] [id number] [place] [address]- 9024 Feb, [facility] [place] [facility] [address] [id number] [place] [address]- 0944 Feb, [facility] [place] [facility] [address] [id number] [place] [address]- 3486 Feb, [facility] [place] [facility] [address] [id number] [place] [address]- 6213 Feb, [facility] [place] [facility] [address] [id number] [place] [address]- 1080 Feb, [facility] [place] [facility] [address] [id number] [place] [address]- 0980 Feb, [facility] [place] [facility] [address] [id number] [place] [address]- 4545 Feb, [facility] [place] [facility] [address] [id number] [place] [address]- 2008 Jan, [facility] [place] [facility] [address] [id number] [place] [address]- 4408 Jan, [facility] [place] [facility] [address] [id number] [place] [address]- 8767 Jan, [facility] [place] [facility] [address] [id number] [place] 8966 Jan, [facility] [place] [facility] [address] [id number] [place] [address]- 6456 Jan, [facility] [place] [facility] [address] [id number] [place] [address]- 7141 Jan, [facility] [place] [facility] [address] [id number] [place] [address]- 5566 Jan, [facility] [place] [facility] [address] [id number] [place] [address]- 6640 24 Dec, 2011 [facility] [place] [facility] [address] [id number] [place] [address]- 8531 17 Dec, 2011 [facility] [place] [facility] [address] [id number] [place] [address]- 9495 13 Dec, 2011 [facility] [place] [facility] [address] [id number] [place] [address]- 3713 12 Dec, 2011 [facility] [place] [facility] [address] [id number] [place] [address]- 0949 23 Nov, 2011 [facility] [place] [facility] [address] [id number] [place] [address]- 8669 20 Nov, 2011 [facility] [place] [facility] [address] [id number] [place] [address]- 3618 17 Nov, 2011 [facility] [place] [facility] [address] [id number] [place] [address]- 4412 15 Nov, 2011 [facility] [place] [facility] [address] [id number] [place] [address]- 7967 14 Nov, 2011 [facility] [place] [facility] [address] [id number] [place] [address]- 5220 13 Nov, 2011 [facility] [place] [facility] [address] [id number] [place] [address]- 4907 Nov, [facility] [place] [facility] [address] [id number] [place] [address]- 2789 Nov, [facility] [place] [facility] [address] [id number] [place] [address]- 4226 Nov, [facility] [place] [facility] [address] [id number] [place] [address]- 8216 Nov, [facility] [place] [facility] [address] [id number] [place] [address]- 3263 Nov, [facility] [place] [facility] [address] [id number] [place] [address]- 5724 Nov, [facility] [place] [facility] [address] [id number] [place] [address]- 8723 Nov, [facility] [place] [facility] [address] [id number] [place] [address]- 6018 Oct, [facility] [address] [id number] [place] [address]- 4477 Oct, [facility] [place] [facility] [address] [id number] [place] [address]- 6317 Oct, [facility] [address] [id number] [place] [address]- 8218 Oct, [facility] [place] [facility] [address] [id number] [place] [address]- 7302 Oct, [facility] [place] [facility] [address] [id number] [place] [address]- 5495 Oct, [facility] [place] [facility] [address] [id number] [place] [address]- 6933 Oct, [facility] [place] [facility] [address] [id number] [place] [address]- 2475 Oct, [facility] [place] [facility] [address] [id number] [place] 3076 Oct, [facility] [place] [facility] [address] [id number] [place] [address]- 4031 Sep, [facility] [place] [facility] [address] [id number] [place] [address]- 5922 Sep, [facility] [place] [facility] [address] [id number] [place] [address]- 9490 Sep, [facility] [place] [facility] [address] [id number] [place] [address]- 8605 Sep, [facility] [place] [facility] [address] [id number] [place] [address]- 5313 Sep, [facility] [place] [facility] [address] [id number] [place] [address]- 7202 Sep, [facility] [place] [facility] [address] [id number] [place] [address]- 5389 Sep, [facility] [place] [facility] [address] [id number] [place] [address]- 6626 Sep, [facility] [place] [facility] [address] [id number] [place] [address]- 1276 August, [facility] [place] [facility] [address] [id number] [place] [address]- 3288 August, [facility] [place] [facility] [address] [id number] [place] [address]- 9170 August, [facility] [place] [facility] [address] [id number] [place] [address]- 1150 August, [facility] [place] [facility] [address] [id number] [place] [address]- 2245 August, [facility] [place] [facility] [address] [id number] [place] [address]- 4690 August, [facility] [place] [facility] [address] [id number] [place] [address]- 2204 August, [facility] [place] [facility] [address] [id number] [place] [address]- 7325 August, [facility] [address] [facility] [id number] [place] August, [facility] [address] [facility] [id number] [place] [address] August, [facility] [address] [facility] [id number] [place] [address]- 0802 August, [facility] [address] [facility] [id number] [place] 8713 August, [facility] [address] [facility] [id number] [place] [address]127 Oct, IMMUNIZATIONS No Known Immunizations SOCIAL HISTORY Never Assessed REASON FOR VISIT per Aicha Burks--tcuppettRN, --Has bumps in vaginal area that would like evaluated. Having vaginal itching and thinks may be a yeast infection, --Pt states lyrica is not working since it was decreased to bid. Insurance will not cover any more than that though. Needing something for pain PLAN OF CARE Activity Details Follow Up prn Reason: Pending Test GC/CHLAM PROBE (STATE) Pending Test CULTURE, GENITAL VITAL SIGNS Height 63 in 2018-01-13 Weight 411.3 lbs 2018-01-13 Temperature 98.3 degrees Fahrenheit 2018-01-13 Heart Rate 104 bpm 2018-01-13 Respiratory Rate 20 2018-01-13 BMI 72.85 kg/m2 2018-01-13 Blood pressure systolic 144 mmHg 2018-01-13 Blood pressure diastolic 90 mmHg 2018-01-13 MEDICATIONS Medication Instructions Dosage Frequency Start Date End Date Duration Status Glucometer glucometer as directed Oct, Active Zofran 4 MG Orally every 4 hrs 1 tablet as needed 4h 3 Active Cetirizine HCl 10 mg Orally Once a day 1 tablet 24h 90 days Active Test strips as directed Oct, Active Loperamide HCl 2 MG Orally 2 times a day 1 capsule as needed 12h Oct, 3 days Active Zantac 150 MG Orally Once a day 1 tablet at bedtime 24h Active Mirtazapine 45 MG Orally Once a day 1 tablet at bedtime 24h 30 Active Tylenol 325 MG Orally every 6 hrs 2 tablets as needed 6h 15 Active Lasix 40 mg Orally Once a day 1 tablet 24h 90 days Active Potassium Chloride Eugenia ER 10 MEQ Orally Once a day 1 tablet with food 24h 90 days Active Sucralfate 1 GM Orally at bedtime 2 tablet Active OneTouch Ultra Test - TEST FOUR TIMES DAILY 25 Active immodium Active Rosuvastatin Calcium 20 mg Orally Once a day 1 tablet 24h 2017 90 days Active Lancets - as directed Nov, Active Lyrica 150 MG Orally 2 times a day 1 capsule 12h 28 days Active Montelukast Sodium 10 mg Orally Once a day 1 tablet in the evening 24h 90 days Active MetFORMIN HCl ER 500 mg Orally Once a day 2 tablet with evening meal 24h Nov, 30 day(s) Active RESULTS Name Result Date Reference Range TRICHOMONAS (IN HOUSE) 2018-01-13 TRICHOMONAS Negative Control + Lot # [id number] Exp date 11/2018 BACTERIAL VAGINOSIS (IN HOUSE) 2018-01-13 RESULTS Negative Control + Lot # [id number] Exp date 08/30 PROCEDURES Procedure Date Ordered Result Body Site No Charge Jan 13, 2018 Bacterial Vaginosis In House Jan 13, 2018 LAB NOT BILLED BY [facility] Jan 13, 2018 INSTRUCTIONS MEDICATIONS ADMINISTERED No Known Medications MEDICAL [...] Hospitalization History suicidal ideations-[place] 12/28 Hospitalization History hypoxia--[facility] 02/13/2016 Hospitalization History shortness of breath at june 2016 Hospitalization History Shortness of breath at august 2016 Hospitalization History SOB, chest pain at 12/2016
--- OUTSIDE RECORDS SUMMARY | 2018-02-11 12:37 | XMS REPORT ---
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 obesity with alveolar hypoventilation E66.2 and Vaginal bleeding N93.9 [facility] [address], [place] [address]- 8103 Jul, Unspecified mood [affective] disorder F39 [facility] [address] [address]- 4181 Jul, [facility] [id number] [place] [address] 67178- 7932 Jul, [facility] [address] [address]- 0666 Jul, Unspecified mood [affective] disorder F39 [facility] [address] [address]8631 Jul, [facility] [address] [address]- 9389 Jun, Elevated AST (SGOT) R74.0 [facility] [address] [address]- 0812 Jun, [facility] [id number] [place] [address] 74819- 9267 24 Jun, 2015 Upper respiratory infection J06.9 and Type 2 diabetes mellitus with diabetic polyneuropathy E11.42 [facility] [address] [address]- 2596 Jun, Unspecified mood [affective] disorder F39 [facility] [address], [place] [address]- 9460 Jun, [facility] [id number] [place] [address] 14109- 3985 Jun, Unspecified mood [affective] disorder [address] [place] [address] [address] [address]- 4379 Jun, Unspecified mood [affective] disorder F39 [facility] [address], [place] [address]- 5008 18 Jun, 2015 Unspecified mood [affective] disorder [address] [address]- 5526 15 Jun, 2015 Unspecified mood [affective] disorder [address] [address]- 2701 14 Jun, 2015 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 [id number] [place] [address] 52128- 9690 Jun, Unspecified mood [affective] disorder F39 [facility] [id number] [place] [address] 35470- 8460 Jun, Type 2 diabetes mellitus with hyperglycemia E11.65 [facility] [id number] [place] [address] 67565- 0770 May, Unspecified mood [affective] disorder F39 [facility] [id number] [place] [address] 71260- 0343 May, [facility] [id number] [place] [address] 90175- 0902 May, [facility] [id number] [place] [address] 96113- 3675 May, [facility] [id number] [place] [address] 54755- 3977 Apr, [facility] [id number] [place] [address] 46570- 9363 Apr, Unspecified mood [affective] disorder F39 [facility] [id number] [place] [address] 54093- 4948 Apr, [facility] [id number] [place] [address] 24395- 1562 Apr, [facility] [id number] [place] [address] 66631- 9886 Apr, [facility] [id number] [place] [address] 38756- 8583 Apr, Dysuria R30.0 and Well woman exam (no gynecological exam) Z00.00 [facility] [address] [address]- 2209 Mar, [facility] [id number] [place] [address] 82033- 2791 Mar, [facility] [address] [address] Mar, Dental examination Z01.20 [facility] [id number] [place] [address] 98015- 8703 Mar, Chronic diarrhea K52.9 ; Intractable vomiting with nausea, vomiting of unspecified type R11.2 ; Cellulitis, unspecified cellulitis site L03.90 ; Type 2 diabetes mellitus with diabetic polyneuropathy E11.42 and Postinflammatory hyperpigmentation L81.0 [facility] [address], [place] [address]- 5138 Mar, Unspecified mood [affective] disorder F39 [facility] [id number] [place] [address] 57753- 7572 Mar, Unspecified mood [affective] disorder F39 [facility] [id number] [place] [address] 05757- 8667 Mar, [facility] [id number] [place] [address] 08318- 2756 Mar, [facility] [address], [place] [address]- 8389 Mar, [facility] [address] [place] [address] 98884- 9068 Mar, [facility] [address], [place] [address]- 5495 Mar, [facility] [address] [place] [address] 63831- 4350 Mar, [facility] [address], [place] [address]- 8345 Feb, Unspecified mood [affective] disorder F39 [facility] [address], [place] [address]- 0697 Feb, [facility] [id number] [place] [address] 31874- 1069 Feb, [facility] [id number] [place] [address] 34545- 8008 Jan, Unspecified mood [affective] disorder F39 [facility] [address] [id number] [id number] Jan, Encounter for dental examination Z01.20 [facility] [id number] [place] [address] 10400- 8739 Jan, [facility] [id number] [place] [address] 11787- 1135 Jan, [facility] [id number] [place] [address] 41831- 9988 Jan, [facility] [id number] [place] [address] 32676- 6676 Jan, [facility] [id number] [place] [address] 37852- 9479 Jan, [facility] [id number] [place] [address] 53506- 6450 Jan, Abdominal abscess K65.1 and Dental caries K02.9 [facility] [id number] [place] [address] 10744- 0626 Jan, [facility] [id number] [place] [address] 11829- 9914 Dec, Diabetes with neurological manifestations, type II or unspecified type, not stated as uncontrolled 250.60 ; Essential hypertension, benign 401.1 ; Concussion 850.9 and Skin texture changes 782.8 [facility] [address] [place] [address] 31592- 2669 Dec, [facility] [id number] [place] [address] [place] [address] 2546 24 Sep, 2014 [facility] [address] [facility] [id number] [address] 2546 22 Sep, 2014 [facility] [address], [place] [address] 2546 21 Sep, 2014 [facility] [address], [place] [address] 2546 17 Sep, 2014 Affective disorder 296.90 [facility] [address] [place] [address] 21316 2546 14 Sep, 2014 [facility] [id number] [place] [address] 95745 2546 10 Dec, 2014 Affective disorder 296.90 [facility] [address], [place] [address] 2546 04 Sep, 2014 [facility] [id number] [place] [address] 98874 2546 04 Dec, 2014 [facility] [address], [place] [address] 2546 04 Sep, 2014 [facility] [address], [place] [address] 2546 03 Dec, 2014 [facility] [address], [place] [address] 2546 Nov, 2014 Affective disorder 296.90 [facility] [address], [place] [address] 2546 Nov, 2014 [facility] [address] [address] 2546 Nov, 2014 Affective disorder 296.90 [facility] [address], [place] [address] 2546 Nov, 2014 Diarrhea 787.91 [facility] [place] [facility] [address], [place] [address] 2546 Nov, 2014 [facility] [id number] [address] 2546 Nov, Diarrhea 787.91 [facility] [id number] [place] [address] 21782 2546 Nov, Diarrhea 787.91 and Hyperlipidemia 272.4 [facility] [address] [place] [address] 37785 2546 Nov, Diarrhea 787.91 [facility] [id number] [place] [address] 76594 2546 Nov, Affective disorder 296.90 [facility] [id number] [place] [address] 71427- 1156 18 Nov, 2014 Affective disorder 296.90 [facility] [id number] [place] [address] 01238- 3414 17 Nov, 2014 Affective disorder 296.90 [facility] [id number] [place] [address] 88469- 9322 14 Nov, 2014 [facility] [id number] [place] [address] 10198- 8764 Nov, [facility] [id number] [place] [address] 74511- 3992 Nov, [facility] [address] [place] [address] 37075- 7098 Nov, Episodic mood disorder 296.90 [facility] [address] [place] [address] 31316- 3835 Nov, [facility] [id number] [place] [address] 73402 2542 Nov, [facility] [id number] [place] [address] 56024- 2542 Nov, [facility] [id number] [place] [address] 67927- 1700 Nov, [facility] [id number] [place] [address] 68586- 9573 Nov, [facility] [address] [address]- 2492 Nov, Lymphedema 457.1 ; Hyperlipidemia 272.4 ; Essential hypertension, benign 401.1 and Numbness of toes 782.0 [facility] [address], [place] [address]- 0674 Nov, Episodic mood disorder 296.90 [facility] [address] [place] [address] 84965- 0233 Oct, [facility] [address], [place] [address]- 0528 Oct, [facility] [address] [address]- 7729 Oct, [facility] [address] [address]- 1176 Oct, [facility] [address] [address]- 4481 Oct, [facility] [address], [place] [address]- 8029 Oct, [facility] [address] [address]- 0536 Oct, [facility] [address] [address]- 9622 Oct, [facility] [address] [address]- 3716 Oct, Episodic mood disorder 296.90 [facility] [address] 3399 Sep, [facility] [address] [address]- 3925 Sep, [facility] [address] 3497 Sep, [facility] [address], [place] [address]- 6897 Sep, [facility] [address] [address]- 1265 Sep, [facility] [address] [address]- 2743 Sep, Episodic mood disorder 296.90 [facility] [address] [address]- 2439 Sep, Unspecified episodic mood disorder 296.90 [facility] [address] [address]- 0533 Sep, [facility] [address] [address]- 9209 Sep, [facility] [address] [address]- 9776 16 Sep, 2014 Episodic mood disorder 296.90 [facility] [address] [address]- 0383 15 Sep, 2014 [facility] [address] [address]- 0963 Sep, [facility] [address] [address] Sep, [facility] [address] [address] 09 Sep, 2014 Hematemesis 578.0 and Vomiting 787.03 [facility] [id number] [address] 09 Sep, 2014 Episodic mood disorder 296.90 [facility] [address] [address] 08 Sep, 2014 [facility] [address] [address] 08 Sep, 2014 [facility] [address] [address] Sep, Diabetes mellitus without mention of complication, type II or unspecified type, not stated as uncontrolled 250.00 and Other chronic pain 338.29 [facility] [address] [address] Sep, Episodic mood disorder 296.90 [facility] [address] [address] Sep, [facility] [id number] [place] [address] Sep, Episodic mood disorder 296.90 [facility] [id number] [place] [address]- [address] Sep, [facility] [address] [address] August, [facility] [id number] [address] August, [facility] [address] [address] August, Episodic mood disorder 296.90 [facility] [address] [address] August, [facility] [address] [address] August, Unspecified episodic mood disorder 296.90 [facility] [address] [address] August, Vomiting 787.03 [facility] [address] [address] August, [facility] [address] [address] August, [facility] [address] [address] August, [facility] [id number] [place] [address] August, [facility] [place] [facility] [address] [id number] [place] [address] August, [facility] [place] [facility] [address] [id number] [place] [address] 28 Jul, 2014 [facility] [place] [facility] [address] [id number] [place] [address]- [address] 14 Jul, 2014 [facility] [place] [facility] [address] [id number] [place] [address]- [address] Jul, [facility] [place] [facility] [address] [id number] [place] [address] 30 Jun, 2014 [facility] [place] [facility] [address] [id number] [place] [address]- [address] Jun, [facility] [place] [facility] [address] [id number] [place] [address]77 30 Jun, 2014 [facility] [place] [facility] [address] [id number] [place] [address]- [address] Jun, [facility] [place] [facility] [address] [id number] [place] [address]- 9871 Jun, [facility] [place] [facility] [address] [id number] [place] [address] Jun, [facility] [place] [facility] [address] [id number] [place] [address] 30 Jun, 2014 [facility] [place] [facility] [address] [id number] [place] [address]- [address] 30 Jun, 2014 [facility] [place] [facility] [address] [id number] [place] [address]- [address] Jun, [facility] [place] [facility] [address] [id number] [place] [address] Jun, [facility] [place] [facility] [address] [id number] [place] [address]- [address] Jun, [facility] [place] [facility] [address] [id number] [place] [address] Jun, [facility] [place] [facility] [address] [id number] [place] [address] Jun, [facility] [place] [facility] [address] [id number] [place] [address] 3[address] Jun, [facility] [place] [facility] [address] [id number] [place] [address] 2908 Jun, [facility] [place] [facility] [address] [id number] [place] [address] 17[address] Jun, [facility] [place] [facility] [address] [id number] [place] [address] 5461 Jun, [facility] [place] [facility] [address] [id number] [place] [address] 0594 Jun, [facility] [place] [facility] [address] [id number] [place] [address]388 Jun, [facility] [place] [facility] [address] [id number] [place] [address] 7209 Jun, [facility] [place] [facility] [address] [id number] [place] [address] 8218 Jun, [facility] [place] [facility] [address] [id number] [place] [address] 54[address] Jun, [facility] [place] [facility] [address] [id number] [place] [address] 48[address] Jun, [facility] [place] [facility] [address] [id number] [place] [address] 0946 Jun, [facility] [place] [facility] [address] [id number] [place] [address]- 4577 Jun, [facility] [place] [facility] [address] [id number] [place] [address]- 7793 19 Jun, 2014 [facility] [place] [facility] [address] [id number] [place] [address] 7418 19 Jun, 2014 [facility] [place] [facility] [address] [id number] [place] [address]- 5015 18 Jun, 2014 [facility] [place] [facility] [address] [id number] [place] [address]- 5921 18 Jun, 2014 [facility] [place] [facility] [address] [id number] [place] [address]- 4472 17 Jun, 2014 [facility] [place] [facility] [address] [id number] [place] [address]- 3815 17 Jun, 2014 [facility] [place] [facility] [address] [id number] [place] [address] 6403 16 Jun, 2014 [facility] [place] [facility] [address] [id number] [place] [address]- 7767 16 Jun, 2014 [facility] [place] [facility] [address] [id number] [place] [address]- 9965 16 Jun, 2014 [facility] [place] [facility] [address] [id number] [place] [address]- 9740 16 Jun, 2014 [facility] [place] [facility] [address] [id number] [place] [address]- 4569 16 Jun, 2014 [facility] [place] [facility] [address] [id number] [place] [address]- 9579 16 Jun, 2014 [facility] [place] [facility] [address] [id number] [place] [address]- 7273 13 Jun, 2014 [facility] [place] [facility] [address] [id number] [place] [address]- 5119 13 Jun, 2014 [facility] [place] [facility] [address] [id number] [place] [address]- 9602 12 Jun, 2014 [facility] [place] [facility] [address] [id number] [place] [address] 5317 12 Jun, 2014 [facility] [place] [facility] [address] [id number] [place] [address]- 0377 09 Jun, 2014 [facility] [place] [facility] [address] [id number] [place] [address]- 0099 Jun, 2014 [facility] [place] [facility] [address] [id number] [place] [address]- 5017 Jun, 2014 [facility] [place] [facility] [address] [id number] [place] [address]- 0934 Jun, 2014 [facility] [place] [facility] [address] [id number] [place] [address]- 6313 Jun, 2014 [facility] [place] [facility] [address] [id number] [place] [address] 6386 Jun, 2014 [facility] [place] [facility] [address] [id number] [place] [address]- 1579 Jun, 2014 [facility] [place] [facility] [address] [id number] [place] [address]- 3763 Jun, 2014 [facility] [place] [facility] [address] [id number] [place] [address]- 2495 Jun, 2014 [facility] [place] [facility] [address] [id number] [place] [address]- 8474 Jun, 2014 [facility] [place] [facility] [address] [id number] [place] [address]- 5705 Jun, 2014 [facility] [place] [facility] [address] [id number] [place] [address]- 3155 Jun, 2014 [facility] [place] [facility] [address] [id number] [place] [address]- 7374 Jun, 2014 [facility] [place] [facility] [address] [id number] [place] [address]- 1004 Jun, [facility] [place] [facility] [address] [id number] [place] [address]- 6814 Jun, 2014 [facility] [place] [facility] [address] [id number] [place] [address]- 2797 Jun, 2014 [facility] [place] [facility] [address] [id number] [place] [address] 0870 May, 2014 [facility] [place] [facility] [address] [facility] [id number] [place] [address] 2116 May, 2014 [facility] [place] [facility] [address] [facility] [id number] [place] [address]- 3506 25 May, 2014 [facility] [place] [facility] [address] [facility] [id number] [place] [address]- 5326 May, 2014 [facility] [place] [facility] [address] [facility] [id number] [place] [address]- 2549 24 May, 2014 [facility] [place] [facility] [address] [facility] [id number] [place] [address]- 9814 24 May, 2014 [facility] [place] [facility] [address] [id number] [place] [address] 1349 20 May, 2014 [facility] [place] [facility] [address] [id number] [place] [address]- 5347 20 May, 2014 [facility] [place] [facility] [address] [facility] [id number] [place] [address]- 2547 20 May, 2014 [facility] [place] [facility] [address] [facility] [id number] [place] [address]- 6491 20 May, 2014 [facility] [place] [facility] [address] [id number] [place] [address]- 2441 18 May, 2014 [facility] [place] [facility] [address] [id number] [place] [address]- 2546 18 May, 2014 [facility] [place] [facility] [address] [facility] [id number], [place] [address]- 2545 13 May, 2014 [facility] [place] [facility] [address] [facility] [id number] [place] [address]- 1636 13 May, 2014 [facility] [place] [facility] [address] [facility] [id number], [place] [address]- 2546 11 May, 2014 [facility] [place] [facility] [id number] [place] [address] 2837 May, 2014 [facility] [place] [facility] [address] [id number] [place] [address]- 1563 May, 2014 [facility] [place] [facility] [address] [id number] [place] [address]- 3561 May, 2014 [facility] [place] [facility] [address] [facility] [id number] [place] [address]- 7110 May, 2014 [facility] [place] [facility] [address] [facility] [id number] [place] [address]- 2467 May, 2014 [facility] [place] [facility] [address] [id number] [place] [address]- 4501 May, 2014 [facility] [place] [facility] [address] [facility] [id number] [place] [address]- 8521 May, 2014 [facility] [place] [facility] [address] [facility] [id number] [place] [address]- 8578 May, 2014 [facility] [place] [facility] [address] [facility] [id number] [place] [address]- 8659 May, 2014 [facility] [place] [facility] [address] [facility] [id number] [place] [address]- 4986 May, 2014 [facility] [place] [facility] [address] [facility] [id number] [place] [address]- 2795 May, 2014 [facility] [place] [facility] [address] [facility] [id number] [place] [address]- 5333 May, 2014 [facility] [place] [facility] [address] [facility] [id number] [address]- 0115 Apr, [facility] [place] [facility] [address] [facility] [id number] [place] [address]- 1295 Apr, [facility] [place] [facility] [address] [facility] [id number] [place] [address]- 9959 Apr, [facility] [place] [facility] [address] [facility] [id number] [place] [address]- 9649 Apr, [facility] [place] [facility] [address] [id number] [place] [address]- 1568 Apr, [facility] [place] [facility] [address] [id number] [place] [address]- 3740 Apr, [facility] [place] [facility] [address] [id number] [place] [address]- 0786 Apr, [facility] [place] [facility] [address] [id number] [place] [address]- 2262 Apr, [facility] [place] [facility] [address] [id number] [place] [address]- 1743 Apr, [facility] [place] [facility] [address] [id number] [place] [address]- 7885 Apr, [facility] [place] [facility] [address] [id number] [place] [address]- 4202 Apr, [facility] [place] [facility] [address] [id number] [place] [address]- 0125 Apr, [facility] [place] [facility] [address] [id number] [place] [address]- 5634 Apr, [facility] [place] [facility] [address] [id number] [place] [address]- 7936 Apr, [facility] [place] [facility] [address] [id number] [place] [address]- 2613 Apr, [facility] [place] [facility] [address] [id number] [place] [address]- 0720 Apr, [facility] [place] [facility] [address] [id number] [place] [address]- 3869 Apr, [facility] [place] [facility] [address] [id number] [place] [address]- 2333 Apr, [facility] [place] [facility] [address] [id number] [place] [address]- 9052 Apr, [facility] [place] [facility] [address] [id number] [place] [address]- 4916 Apr, [facility] [place] [facility] [address] [id number] [place] [address]- 6208 Mar, [facility] [place] [facility] [address] [id number] [place] [address]- 7155 Mar, [facility] [place] [facility] [address] [id number] [place] [address]- 9457 Mar, [facility] [place] [facility] [address] [id number] [place] [address]- 2229 Mar, [facility] [place] [facility] [address] [id number] [place] [address]- 5791 Mar, [facility] [place] [facility] [address] [id number] [place] [address]- 0969 Mar, [facility] [place] [facility] [address] [id number] [place] [address]- 5290 Mar, [facility] [place] [facility] [address] [id number] [place] [address]- 7452 Mar, [facility] [place] [facility] [address] [id number] [place] [address]- 4225 15 Mar, 2014 [facility] [place] [facility] [address] [id number] [place] [address]- 4131 15 Mar, 2014 [facility] [place] [facility] [address] [id number] [place] [address]- 6269 15 Mar, 2014 [facility] [place] [facility] [address] [id number] [place] [address]- 6194 15 Mar, 2014 [facility] [place] [facility] [address] [id number] [place] [address]- 8982 Mar, [facility] [place] [facility] [address] [id number] [place] [address]- 0236 Mar, [facility] [place] [facility] [address] [id number] [place] 70[address] Mar, [facility] [place] [facility] [address] [id number] [place] [address]- 5325 Mar, [facility] [place] [facility] [address] [id number] [place] [address]- 0464 Feb, [facility] [place] [facility] [address] [id number] [place] [address]- 6784 Feb, [facility] [place] [facility] [address] [id number] [place] [address]- 9210 Feb, [facility] [place] [facility] [address] [id number] [place] [address]- 4954 Feb, [facility] [place] [facility] [address] [id number] [place] [address]- 6928 Feb, [facility] [place] [facility] [address] [id number] [place] [address]- 3830 Feb, [facility] [place] [facility] [address] [id number] [place] [address]- 2718 Feb, [facility] [place] [facility] [address] [id number] [place] [address]- 1779 Feb, [facility] [place] [facility] [address] [id number] [place] [address]- 2794 Feb, [facility] [place] [facility] [address] [id number] [place] [address]- 2380 Feb, [facility] [place] [facility] [address] [id number] [place] [address]- 3780 Feb, [facility] [place] [facility] [address] [id number] [place] [address]- 7928 17 Feb, 2014 [facility] [place] [facility] [address] [id number] [place] [address]- 7009 17 Feb, 2014 [facility] [place] [facility] [address] [id number] [place] [address]- 1237 14 Feb, 2014 [facility] [place] [facility] [address] [id number] [place] [address]- 3153 Feb, [facility] [place] [facility] [address] [id number] [place] [address]- 5806 Feb, [facility] [place] [facility] [address] [id number] [place] [address]- 4505 Feb, [facility] [place] [facility] [address] [id number] [place] [address]- 9654 Feb, [facility] [place] [facility] [address] [id number] [place] [address]- 1042 Feb, [facility] [place] [facility] [address] [id number] [place] [address]- 7950 Feb, [facility] [place] [facility] [address] [id number] [place] [address]- 7097 Feb, [facility] [place] [facility] [address] [id number] [place] [address]- 5655 Jan, [facility] [place] [facility] [address] [id number] [place] [address]- 9740 Jan, [facility] [place] [facility] [address] [id number] [place] [address]- 2294 Jan, [facility] [place] [facility] [address] [id number] [place] [address]- 7273 Jan, [facility] [place] [facility] [address] [id number] [place] [address]- 9207 Jan, [facility] [place] [facility] [address] [id number] [place] [address]- 5576 Jan, [facility] [place] [facility] [address] [id number] [place] [address]- 8694 Jan, [facility] [place] [facility] [address] [id number] [place] [address]- 7337 Jan, [facility] [place] [facility] [address] [id number] [place] [address]- 3542 Jan, [facility] [place] [facility] [address] [id number] [place] [address]- 2468 20 Jan, 2013 [facility] [place] [facility] [address] [id number] [place] [address]- 8506 17 Jan, 2013 [facility] [place] [facility] [address] [id number] [place] 1043 17 Jan, 2013 [facility] [place] [facility] [address] [id number] [place] [address]- 8118 17 Jan, 2013 [facility] [place] [facility] [address] [id number] [place] [address]- 6792 17 Jan, 2013 [facility] [place] [facility] [address] [id number] [place] [address]- 4441 15 Jan, 2013 [facility] [place] [facility] [address] [id number] [place] [address]- 3631 15 Jan, 2013 [facility] [place] [facility] [address] [id number] [place] [address]- 4042 14 Jan, 2014 [facility] [place] [facility] [address] [id number] [place] [address]- 2469 14 Jan, 2014 [facility] [place] [facility] [address] [id number] [place] [address]- 1757 13 Jan, 2014 [facility] [place] [facility] [address] [id number] [place] [address]- 0102 13 Jan, 2014 [facility] [place] [facility] [address] [id number] [place] [address]- 9184 13 Jan, 2014 [facility] [place] [facility] [address] [id number], [place] [address]- 5367 13 Jan, 2014 [facility] [place] [facility] [address] [id number] [place] [address]- 3958 10 Jan, 2013 [facility] [place] [facility] [address] [id number] [place] [address]- 3062 02 Jan, 2014 [facility] [place] [facility] [address] [id number] [place] [address]- 2685 02 Jan, 2013 [facility] [place] [facility] [address] [id number] [place] [address]- 2548 25 Sep, 2013 [facility] [place] [facility] [address] [id number] [place] [address] 2546 25 Sep, 2013 [facility] [place] [facility] [address] [id number] [place] [address]- 2546 23 Sep, 2013 [facility] [address] [id number] [place] [address]- 0544 23 Sep, 2013 [facility] [place] [facility] [address] [id number] [place] [address]- 2545 19 Sep, 2013 [facility] [place] [facility] [address] [id number] [place] [address]- 7095 19 Sep, 2013 [facility] [place] [facility] [address] [id number] [place] [address]- 5184 17 Sep, 2013 [facility] [place] [facility] [address] [id number] [place] [address]- 1454 17 Sep, 2013 [facility] [address] [id number] [place] [address]- 2603 09 Sep, 2013 [facility] [place] [facility] [address] [id number] [place] [address]- 2544 09 Sep, 2013 [facility] [place] [facility] [address] [id number] [place] [address]- 6013 08 Sep, 2013 [facility] [place] [facility] [address] [id number] [place] [address]- 254 08 Sep, 2013 [facility] [place] [facility] [address] [id number] [place] [address]- 2545 04 Sep, 2013 [facility] [place] [facility] [address] [id number] [place] [address]- 2549 04 Sep, 2013 [facility] [place] [facility] [address] [id number] [place] [address]- 2541 02 Sep, 2013 [facility] [place] [facility] [address] [id number] [place] [address]- 9409 Dec, [facility] [place] [facility] [address] [id number] [place] [address]- 3412 Dec, [facility] [place] [facility] [address] [id number] [place] [address]- 6534 Dec, [facility] [place] [facility] [address] [id number] [place] [address]- 9143 Nov, [facility] [place] [facility] [address] [id number] [place] [address]- 3613 Nov, [facility] [place] [facility] [address] [id number] [place] [address]- 1081 Nov, [facility] [place] [facility] [address] [id number] [place] [address]- 4661 Nov, [facility] [place] [facility] [address] [id number] [place] [address]- 1375 Nov, [facility] [place] [facility] [address] [id number] [place] [address]- 1817 Nov, [facility] [place] [facility] [address] [id number] [place] [address]- 9217 Nov, [facility] [place] [facility] [address] [id number] [place] [address]- 3573 Nov, [facility] [place] [facility] [address] [id number], [place] [address]- 5306 Nov, [facility] [place] [facility] [address] [id number], [place] [address]- 6470 Nov, [facility] [place] [facility] [address] [id number] [place] [address]- 9252 Nov, [facility] [place] [facility] [address] [id number] [place] [address]- 9516 Nov, [facility] [place] [facility] [address] [id number] [place] [address]- 1685 Oct, [facility] [place] [facility] [address] [id number], [place] [address]- 7831 Oct, [facility] [place] [facility] [address] [id number] [place] [address]- 3827 Oct, [facility] [place] [facility] [address] [id number] [place] [address]- 0526 Oct, [facility] [place] [facility] [address] [id number] [place] [address]- 4709 Oct, [facility] [place] [facility] [address] [id number] [place] [address]- 3253 Oct, [facility] [place] [facility] [address] [id number] [place] [address]- 5832 Oct, [facility] [place] [facility] [address] [id number] [place] [address]- 6369 Oct, [facility] [place] [facility] [address] [id number] [place] [address]- 4511 Oct, [facility] [place] [facility] [address] [id number] [place] [address]- 6081 Oct, [facility] [place] [facility] [address] [id number] [place] [address]- 0236 Oct, [facility] [place] [facility] [address] [id number] [place] [address]- 5293 Oct, [facility] [place] [facility] [address] [id number] [place] [address] Oct, [facility] [place] [facility] [address] [id number] [place] [address] Oct, [facility] [place] [facility] [address] [id number] [place] [address] Oct, [facility] [place] [facility] [address] [id number] [place] [address] Oct, [facility] [place] [facility] [address] [id number] [place] [address] Oct, [facility] [place] [facility] [address] [id number] [place] [address] 27 Sep, 2013 [facility] [place] [facility] [address] [id number] [place] [address] Sep, [facility] [place] [facility] [address] [id number] [place] [address] Sep, [facility] [place] [facility] [address] [id number] [place] [address] Sep, [facility] [place] [facility] [address] [id number] [place] [address] 18 Sep, 2013 [facility] [place] [facility] [address] [id number] [place] [address] 18 Sep, 2013 [facility] [place] [facility] [address] [id number] [place] [address] 17 Sep, 2013 [facility] [place] [facility] [address] [id number] [place] [address] 17 Sep, 2013 [facility] [place] [facility] [address] [id number] [place] [address] Sep, [facility] [place] [facility] [address] [id number] [place] [address] Sep, [facility] [place] [facility] [address] [id number] [place] [address] Sep, [facility] [place] [facility] [address] [id number] [place] [address] 2971 Sep, [facility] [place] [facility] [address] [id number] [place] [address] 10 Sep, 2013 [facility] [place] [facility] [address] [id number] [place] [address] Sep, [facility] [place] [facility] [address] [id number] [place] [address] 09 Sep, 2013 [facility] [place] [facility] [address] [id number] [place] [address] Sep, [facility] [place] [facility] [address] [id number] [place] [address] 9473 Sep, [facility] [place] [facility] [address] [id number] [place] [address] 8579 Sep, [facility] [place] [facility] [address] [id number] [place] [address] Sep, [facility] [place] [facility] [address] [id number] [place] [address] Sep, [facility] [place] [facility] [address] [id number] [place] [address] 7785 Sep, [facility] [place] [facility] [address] [id number] [place] [address] Sep, [facility] [place] [facility] [address] [id number] [place] [address] August, [facility] [place] [facility] [address] [id number] [place] [address] August, [facility] [place] [facility] [address] [id number] [place] [address] August, [facility] [place] [facility] [address] [id number] [place] [address]149 August, [facility] [place] [facility] [address] [id number] [place] [address]- 8979 August, [facility] [place] [facility] [address] [id number] [place] [address] August, [facility] [place] [facility] [address] [id number] [place] [address] 29[address] August, [facility] [place] [facility] [address] [id number] [place] [address] 0868 August, [facility] [place] [facility] [address] [id number] [place] [address] August, [facility] [place] [facility] [address] [id number] [place] [address]105 August, [facility] [place] [facility] [address] [id number] [place] [address] August, [facility] [place] [facility] [address] [id number] [place] [address] 1507 Jul, [facility] [place] [facility] [address] [id number] [place] [address] 46[address] Jul, [facility] [place] [facility] [address] [id number] [place] [address] 89[address] Jul, [facility] [place] [facility] [address] [id number] [place] [address]307 Jul, [facility] [place] [facility] [address] [id number] [place] [address]28 Jul, [facility] [place] [facility] [address] [id number] [place] [address] Jul, [facility] [place] [facility] [address] [id number] [place] [address] 3730 Jul, [facility] [place] [facility] [address] [id number] [place] [address] 9915 Jul, [facility] [place] [facility] [address] [id number] [place] [address]- 8768 Jul, [facility] [place] [facility] [address] [id number] [place] [address] 9832 Jul, [facility] [place] [facility] [address] [id number] [place] [address]- 7469 16 Jul, 2013 [facility] [place] [facility] [address] [id number] [place] [address]- [address] Jul, [facility] [place] [facility] [address] [id number] [place] [address]- 56[address] Jul, [facility] [place] [facility] [address] [id number] [place] [address]- 6[address] Jul, [facility] [place] [facility] [address] [id number] [place] [address]- 5773 Jul, [facility] [place] [facility] [address] [id number] [place] [address]- [address] Jul, [facility] [place] [facility] [address] [id number] [place] [address]- 7690 Jul, [facility] [place] [facility] [address] [id number] [place] [address]- 7844 Jul, [facility] [place] [facility] [address] [id number] [place] [address]- 1685 Jul, [facility] [place] [facility] [address] [id number] [place] [address]- 50[address] Jul, [facility] [place] [facility] [address] [id number] [place] [address] 4527 Jul, [facility] [place] [facility] [address] [id number] [place] [address] 384[address] Jul, [facility] [place] [facility] [address] [id number] [place] [address] 24[address] Jul, [facility] [place] [facility] [address] [id number] [place] [address]- 30[address] Jun, [facility] [place] [facility] [address] [id number] [place] [address]- 7413 Jun, [facility] [place] [facility] [address] [id number] [place] [address]- 7656 Jun, [facility] [place] [facility] [address] [id number] [place] [address]- 6518 Jun, [facility] [place] [facility] [address] [id number] [place] [address]- 1579 Jun, [facility] [place] [facility] [address] [id number] [place] [address]- [address] Jun, [facility] [place] [facility] [address] [id number] [place] [address]- 2546 Jun, [facility] [place] [facility] [address] [id number] [place] [address]- 3739 Jun, [facility] [place] [facility] [address] [id number] [place] [address]- 8361 Jun, [facility] [place] [facility] [address] [id number] [place] [address]- 8923 Jun, [facility] [place] [facility] [address] [id number] [place] [address]- 5412 Jun, [facility] [place] [facility] [address] [id number] [place] [address]- 3010 Jun, [facility] [place] [facility] [address] [id number] [place] [address]- [address]160 May, [facility] [place] [facility] [address] [id number] [place] [address]- 8346 May, [facility] [place] [facility] [address] [id number] [place] [address] Apr, [facility] [place] [facility] [address] [id number] [place] [address] Apr, [facility] [place] [facility] [address] [id number] [place] [address] Apr, [facility] [place] [facility] [address] [id number] [place] [address] Apr, [facility] [place] [facility] [address] [id number] [place] [address] 8887 Apr, [facility] [place] [facility] [address] [id number] [place] [address] 1075 Apr, [facility] [place] [facility] [address] [id number] [place] [address]676 Apr, [facility] [place] [facility] [address] [id number] [place] [address] 7614 Apr, [facility] [place] [facility] [address] [id number] [place] [address] 14 Apr, 2013 [facility] [address] [id number] [place] [address] 270[address] Apr, [facility] [place] [facility] [address] [id number] [place] [address] Apr, [facility] [address] [id number] [place] [address] 16 Mar, 2013 [facility] [place] [facility] [address] [id number] [place] [address] 387[address] Mar, [facility] [address] [id number] [place] [address] 93[address] Mar, [facility] [address] [id number] [place] [address] 7861 Mar, [facility] [address] [id number] [place] [address] 5577 Feb, [facility] [address] [id number] [place] [address] 1796 Feb, [facility] [address] [id number] [place] [address] 0260 Feb, [facility] [address] [id number] [place] [address] 1652 Feb, [facility] [place] [facility] [address] [id number] [place] [address] 8466 Feb, [facility] [place] [facility] [address] [id number] [place] [address]- 5582 Feb, [facility] [place] [facility] [address] [id number] [place] [address] 2700 Feb, [facility] [place] [facility] [address] [id number] [place] [address] Feb, [facility] [place] [facility] [address] [id number] [place] [address] 8330 Feb, [facility] [place] [facility] [address] [id number] [place] [address]- 9868 Feb, [facility] [place] [facility] [address] [id number] [place] [address]- 8387 Feb, [facility] [place] [facility] [address] [id number] [place] [address]- 7074 Jan, [facility] [place] [facility] [address] [id number] [place] [address] 1217 Jan, [facility] [place] [facility] [address] [id number] [place] [address]- 3843 Jan, [facility] [place] [facility] [address] [id number] [place] [address] 1600 Jan, [facility] [place] [facility] [address] [id number] [place] [address] 2955 Jan, [facility] [place] [facility] [address] [id number], [place] [address] 40[address] Jan, [facility] [place] [facility] [address] [id number] [place] [address]- 9977 Jan, [facility] [place] [facility] [address] [id number], [place] [address] 6044 Jan, [facility] [place] [facility] [address] [id number], [place] [address] 5741 30 Dec, 2012 [facility] [place] [facility] [address] [id number], [place] [address] 25 Dec, 2012 [facility] [place] [facility] [address] [id number] [place] [address]- 6297 18 Sep2012 [facility] [place] [facility] [address] [id number], [place] [address] 17 Sep2012 [facility] [place] [facility] [address] [id number] [place] [address] 0080 17 Dec, 2012 [facility] [place] [facility] [address] [id number] [place] [address]- 2067 16 Dec, 2012 [facility] [place] [facility] [address] [id number] [place] [address] 7859 13 Dec, 2012 [facility] [place] [facility] [address] [id number] [place] [address]- 2552 11 Dec, 2012 [facility] [place] [facility] [address] [id number] [place] [address]- 1105 05 Dec, 2012 [facility] [place] [facility] [address] [id number] [place] [address]- 4219 04 Dec, 2012 [facility] [place] [facility] [address] [id number] [place] [address]- 4153 30 Nov, 2012 [facility] [place] [facility] [address] [id number] [place] [address]- 9204 29 Nov, 2012 [facility] [place] [facility] [address] [id number] [place] [address]- 9712 Nov, [facility] [place] [facility] [address] [id number] [place] [address]- 1697 Nov, [facility] [place] [facility] [address] [id number] [place] [address]- 1697 14 Nov, 2012 [facility] [place] [facility] [address] [id number] [place] [address]- 5534 Nov, [facility] [place] [facility] [address] [id number] [place] [address]- 7415 Nov, [facility] [place] [facility] [address] [id number] [place] [address]- 9925 Oct, [facility] [place] [facility] [address] [id number] [place] [address]- 9648 Oct, [facility] [place] [facility] [address] [id number] [place] [address]- 1985 Oct, [facility] [place] [facility] [address] [id number] [place] [address]- 4717 Oct, [facility] [place] [facility] [address] [id number] [place] [address]- 3055 15 Oct, 2012 [facility] [place] [facility] [address] [id number] [place] [address]- 9048 Oct, [facility] [place] [facility] [address] [id number] [place] [address]- 5462 Sep, [facility] [place] [facility] [address] [id number] [place] [address]- 8059 Sep, [facility] [place] [facility] [address] [id number] [place] [address]- 1194 Sep, [facility] [place] [facility] [address] [id number] [place] [address]- 3077 14 Sep, 2012 [facility] [place] [facility] [address] [id number] [place] [address]- 8503 Sep, [facility] [place] [facility] [address] [id number] [place] [address]- 1352 Sep, [facility] [place] [facility] [address] [id number] [place] [address]- 8315 Sep, [facility] [place] [facility] [address] [id number] [place] [address]- 6804 Sep, [facility] [place] [facility] [address] [id number] [place] [address]- 6207 Sep, [facility] [place] [facility] [address] [id number] [place] [address]- 9704 August, [facility] [place] [facility] [address] [id number] [place] [address]- 1721 August, [facility] [place] [facility] [address] [id number] [place] [address]- 1029 August, [facility] [place] [facility] [address] [id number] [place] [address]- 4746 August, [facility] [place] [facility] [address] [id number] [place] [address]- 1230 August, [facility] [address] [id number] [place] [address]- 4106 August, [facility] [address] [id number] [place] [address]- 2546 August, [facility] [address] [facility] [id number] [place] [address]- 2546 August, [facility] [address] [id number] [place] [address]- 1386 Jul, [facility] [address] [id number] [place] [address]- 7873 Jul, [address] [id number] Jul [facility] [address] [id number] [place] [address]- 2546 Jun, [facility] [address] [id number], [place] [address]- 0096 Jun, [facility] [address] [id number] [place] [address]- 8845 Jun, [facility] [address] [id number], [place] [address]- 0466 Jun, [facility] [address] [id number] [place] [address]- 2546 Jun, [facility] [address] [id number], [place] [address]- 2546 Jun, [facility] [address] [id number] [place] [address]- 6516 May, [facility] [address] [id number] [place] [address]- 4186 May, [facility] [address] [id number], [place] [address]- 2546 May, [facility] [address] [id number] [place] [address]- 7277 07 May, 2012 [facility] [address] [id number] [place] [address]- 1690 May, [facility] [address] [id number] [place] [address]- 9376 Apr, [facility] [address] [id number] [place] [address]- 5536 Apr, [facility] [address] [id number] [place] [address]- 8641 Apr, [facility] [address] [id number] [place] [address]- 7028 Apr, [facility] [address] [id number] [place] [address]- 0557 Apr, [facility] [address] [id number] [place] [address]- 1086 Apr, [facility] [address] [id number] [place] [address]- 4089 Mar, [facility] [address] [id number] [place] [address]- 4598 Mar, [facility] [address] [id number] [place] [address]- 4574 Mar, [facility] [address] [id number] [place] [address]- 0160 Mar, [facility] [address] [id number] [place] [address]- 6268 19 Mar, 2012 [facility] [address] [id number] [place] [address]- 0900 18 Mar, 2012 [facility] [address] [id number] [place] [address]- 5741 18 Mar, 2012 [facility] [address] [id number] [place] [address]- 8326 10 Mar, 2012 [facility] [place] [facility] [address] [id number] [place] [address]- 7202 Mar, [facility] [place] [facility] [address] [id number] [place] [address]- 0632 Mar, [facility] [place] [facility] [address] [id number] [place] [address]- 0984 Mar, [facility] [place] [facility] [address] [id number] [place] [address]- 1588 Feb, [facility] [place] [facility] [address] [id number] [place] [address]- 2360 Feb, [facility] [place] [facility] [address] [id number] [place] [address]- 0824 Feb, [facility] [place] [facility] [address] [id number] [place] [address]- 7642 Feb, [facility] [place] [facility] [address] [id number] [place] [address]- 6683 Feb, [facility] [place] [facility] [address] [id number] [place] [address]- 4134 Feb, [facility] [place] [facility] [address] [id number] [place] [address]- 5024 Feb, [facility] [place] [facility] [address] [id number] [place] [address]- 3452 Feb, [facility] [place] [facility] [address] [id number] [place] [address]- 5676 Feb, [facility] [place] [facility] [address] [id number] [place] [address]- 6852 Feb, [facility] [place] [facility] [address] [id number] [place] [address]- 9885 Feb, [facility] [place] [facility] [address] [id number] [place] [address]- 6053 Jan, [facility] [place] [facility] [address] [id number], [place] [address]- 9408 Jan, [facility] [place] [facility] [address] [id number] [place] [address]- 5412 Jan, [facility] [place] [facility] [address] [id number] [place] [address] Jan, [facility] [place] [facility] [address] [id number] [place] [address]- 6410 Jan, [facility] [place] [facility] [address] [id number] [place] [address]- 3517 Jan, [facility] [place] [facility] [address] [id number] [place] [address]- 1203 Jan, [facility] [place] [facility] [address] [id number] [place] [address]- 8205 24 Dec, 2011 [facility] [place] [facility] [address] [id number] [place] [address]- 6949 17 Dec, 2011 [facility] [place] [facility] [address] [id number] [place] [address]- 9510 13 Dec, 2011 [facility] [place] [facility] [address] [id number] [place] [address]- 4598 12 Dec, 2011 [facility] [place] [facility] [address] [id number] [place] [address]- 3857 23 Nov, 2011 [facility] [place] [facility] [address] [id number], [place] [address]- 0762 20 Nov, 2011 [facility] [place] [facility] [address] [id number], [place] [address]- 1179 17 Nov, 2011 [facility] [place] [facility] [address] [id number] [place] [address]- 5674 15 Nov, 2011 [facility] [place] [facility] [address] [id number] [place] [address]- 9952 14 Nov, 2011 [facility] [place] [facility] [address] [id number] [place] [address]- 5402 13 Nov, 2011 [facility] [place] [facility] [address] [id number] [place] [address]- 8452 Nov, [facility] [place] [facility] [address] [id number] [place] [address]- 9817 Nov, [facility] [place] [facility] [address] [id number] [place] [address]- 0655 Nov, [facility] [address] [id number] [place] [address]- 7824 Nov, [facility] [place] [facility] [address] [id number] [place] [address]- 0677 Nov, [facility] [place] [facility] [address] [id number] [place] [address]- 2248 Nov, [facility] [place] [facility] [address] [id number] [place] [address]- 7802 Nov, [facility] [place] [facility] [address] [id number] [place] [address]- 6897 Oct, [facility] [address] [id number] [place] [address]- 2490 Oct, [facility] [place] [facility] [address] [id number] [place] [address]- 9807 Oct, [facility] [address] [id number] [place] [address]- 8083 Oct, [facility] [place] [facility] [address] [id number] [place] [address]- 8001 Oct, [facility] [place] [facility] [address] [id number] [place] [address]- 4116 Oct, [facility] [place] [facility] [address] [id number] [place] [address]- 5873 Oct, [facility] [place] [facility] [address] [id number] [place] [address]- 7880 Oct, [facility] [place] [facility] [address] [id number] [place] [address]- 8659 Oct, [facility] [place] [facility] [address] [id number] [place] [address]- 8698 Sep, [facility] [place] [facility] [address] [id number] [place] [address]- 0802 Sep, [facility] [place] [facility] [address] [id number] [place] [address]- 6619 Sep, [facility] [place] [facility] [address] [id number] [place] [address]- 1123 Sep, [facility] [place] [facility] [address] [id number] [place] [address]- 4189 Sep, [facility] [place] [facility] [address] [id number] [place] [address]- 8556 Sep, [facility] [place] [facility] [address] [id number] [place] [address]- 6155 Sep, [facility] [place] [facility] [address] [id number] [place] [address]- 3656 Sep, [facility] [place] [facility] [address] [id number] [place] [address]- 2964 August, [facility] [place] [facility] [address] [id number] [place] [address]- 4579 August, [facility] [place] [facility] [address] [id number] [place] [address]- 9907 August, [facility] [place] [facility] [address] [id number] [place] [address]- 6252 August, [facility] [place] [facility] [address] [id number] [place] [address]- 9468 August, [facility] [place] [facility] [address] [id number] [place] [address]- 1435 August, [facility] [place] [facility] [address] [id number] [place] [address]- 8893 August, [facility] [place] [facility] [address] [id number] [place] [address]- 9356 August, [facility] [address] [facility] [id number] [place] [address]- 3196 August, [facility] [address] [facility] [id number], [place] [address]- 9746 August, [facility] [address] [facility] [id number], [place] [address]- 6781 August, [facility] [address] [facility] [id number], [place] [address]- 2986 August, [facility] [address] [facility] [id number] [address] Oct, IMMUNIZATIONS No Known Immunizations SOCIAL HISTORY [...] Hospitalization History suicidal ideations-[place] 12/28 Hospitalization History hypoxia--[facility] 02/13/2016 Hospitalization History shortness of breath at june 2016 Hospitalization History Shortness of breath at august 2016 Hospitalization History SOB, chest pain at 12/2016
--- OUTSIDE RECORDS SUMMARY | 2018-02-11 12:39 | XMS REPORT ---
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 [place] [address] [id number] [place] [address] 29482- 5238 Jun, [facility] [id number] [place] [address] 14933- 8231 Jun, Unspecified mood [affective] disorder [id number] [place] [address] 04319- 1463 Jun, Unspecified mood [affective] disorder [address], [place] [address]- 7531 18 Jun, 2015 Unspecified mood [affective] disorder [id number] [place] [address] 26195- 1486 15 Jun, 2015 Unspecified mood [affective] disorder [address] [place] [address] 61447- 6690 14 Jun, 2015 [facility] [address] [place] [address] 30679- 3276 09 Jun, 2015 Type 2 diabetes mellitus with hyperglycemia E11.65 ; Oxygen dependent Z99.81 ; Folliculitis L73.9 ; Dysuria R30.0 ; Encounter for contraceptive management Z30.9 and Dog bite W54.0XXA [facility] [address], [place] [address]- 4452 Jun, Unspecified mood [affective] disorder F39 [facility] [id number] [place] [address] 97619- 1126 Jun, Type 2 diabetes mellitus with hyperglycemia E11.65 [facility] [id number] [place] [address] 69465- 9309 May, Unspecified mood [affective] disorder F39 [facility] [id number] [place] [address] 80897- 7481 May, [facility] [id number] [place] [address] 80071- 5454 May, [facility] [id number] [place] [address] 19618- 4976 May, [facility] [id number] [place] [address] 67916- 4098 Apr, [facility] [address] [place] [address] 70698- 7382 Apr, Unspecified mood [affective] disorder F39 [facility] [address] [place] [address] 64927- 3883 Apr, [facility] [address] [place] [address] 51653- 3303 Apr, [facility] [address] [place] [address] 81646- 6405 Apr, [facility] [address] [place] [address] 72707- 1348 Apr, Dysuria R30.0 and Well woman exam (no gynecological exam) Z00.00 [facility] [address], [place] [address]- 8941 Mar, [facility] [id number] [place] [address] 80883- 2509 Mar, [facility] [id number] [address] Mar, Dental examination Z01.20 [facility] [address] [place] [address] 65555- 7593 Mar, Chronic diarrhea K52.9 ; Intractable vomiting with nausea, vomiting of unspecified type R11.2 ; Cellulitis, unspecified cellulitis site L03.90 ; Type 2 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 and Postinflammatory hyperpigmentation L81.0 [facility] [address] [place] [address] 51272- 3502 Mar, Unspecified mood [affective] disorder F39 [facility] [id number] [place] [address] 20560- 9201 Mar, Unspecified mood [affective] disorder F39 [facility] [id number] [place] [address] 96443- 9747 Mar, [facility] [address] [place] [address] 31870- 5251 Mar, [facility] [id number] [place] [address] 70709- 6533 Mar, [facility] [id number] [place] [address] 37885- 9345 Mar, [facility] [id number] [place] [address] 90808- 3364 Mar, [facility] [id number] [place] [address] 64442- 0497 Mar, [facility] [id number] [place] [address] 22640- 3738 Feb, Unspecified mood [affective] disorder F39 [facility] [id number] [place] [address] 97335- 7707 Feb, [facility] [id number] [place] [address] 64257- 0981 Feb, [facility] [address], [place] [address]- 3377 Jan, Unspecified mood [affective] disorder F39 [facility] [address] [id number] [id number] Jan, Encounter for dental examination Z01.20 [facility] [id number] [place] [address] 87666- 4956 Jan, [facility] [id number] [place] [address] 28729- 1759 Jan, [facility] [id number] [place] [address] 97901- 8260 Jan, [facility] [id number] [place] [address] 27448- 5200 Jan, [facility] [id number] [place] [address] 81581- 7952 Jan, [facility] [id number] [place] [address] 81736- 3683 Jan, Abdominal abscess K65.1 and Dental caries K02.9 [facility] [id number] [place] [address] 10393- 1699 Jan, [facility] [id number] [place] [address] 38491- 6552 Dec, Diabetes with neurological manifestations, type II or unspecified type, not stated as uncontrolled 250.60 ; Essential hypertension, benign 401.1 ; Concussion 850.9 and Skin texture changes 782.8 [facility] [id number] [place] [address] 11109- 3982 Dec, [facility] [id number] [place] [address] 21084- 1413 Dec, [facility] [id number] [place] [address] 74798- 5817 Dec, [facility] [address], [place] [address] 2540 21 Dec, 2014 [facility] [id number] [place] [address] 75951 2546 17 Dec, 2014 Affective disorder 296.90 [facility] [address], [place] [address] 2546 14 Dec, 2014 [facility] [id number] [place] [address] 56615 2546 10 Dec, 2014 Affective disorder 296.90 [facility] [id number] [place] [address] 92626 2546 04 Dec, 2014 [facility] [id number] [place] [address] 89495 2545 04 Dec, 2014 [facility] [id number] [place] [address] 08517 2549 Dec, 2014 [facility] [id number] [place] [address] 83571 2544 Dec, 2014 [facility] [id number] [place] [address] 21881 2541 Nov, Affective disorder 296.90 [facility] [address], [place] [address] 2545 Nov, [facility] [id number] [place] [address] 94950 2545 Nov, Affective disorder 296.90 [facility] [address], [place] [address] 2546 Nov, Diarrhea 787.91 [facility] [id number] [place] [address] 48019 2546 Nov, [facility] [address], [place] [address] 2546 Nov, Diarrhea 787.91 [facility] [id number] [place] [address] 03334- 1064 Nov, Diarrhea 787.91 and Hyperlipidemia 272.4 [facility] [id number] [place] [address] 79935- 1633 Nov, Diarrhea 787.91 [facility] [id number] [place] [address] 97399- 5031 Nov, Affective disorder 296.90 [facility] [id number] [place] [address] 69320- 0679 Nov, Affective disorder 296.90 [facility] [id number] [place] [address] 75497- 8700 Nov, Affective disorder 296.90 [facility] [id number] [place] [address] 23272- 9225 Nov, [facility] [id number] [place] [address] 29829- 2398 Nov, [facility] [id number] [place] [address] 48776- 5138 Nov, [facility] [id number] [place] [address] 57399- 3149 Nov, Episodic mood disorder 296.90 [facility] [id number] [place] [address] 48379- 2125 Nov, [facility] [id number] [place] [address] 85165- 4134 Nov, [facility] [id number] [place] [address] 58393- 4827 Nov, [facility] [id number] [place] [address] 40577- 9360 Nov, [facility] [id number] [place] [address] 47869- 5853 Nov, [facility] [id number] [place] [address] 71469- 3575 Nov, Lymphedema 457.1 ; Hyperlipidemia 272.4 ; Essential hypertension, benign 401.1 and Numbness of toes 782.0 [facility] [address] [address] Nov, Episodic mood disorder 296.90 [facility] [address] [address] 9682 Oct, [facility] [id number] [place] [address] 48599- 1928 Oct, [facility] [address] [place] [address] 6428 Oct, [facility] [id number] [place] [address] 95985- 7570 Oct, [facility] [id number] [address] 3601 Oct, [facility] [id number] [place] [address] 28430- 1303 Oct, [facility] [address] [place] [address] 7997 Oct, [facility] [address] [place] [address] 3[address] Oct, [facility] [address] [place] [address]- 0787 Oct, Episodic mood disorder 296.90 [facility] [address] [place] [address] 9[address] Sep, [facility] [address] [place] [address]- 6179 Sep, [facility] [address] [place] [address]- 3248 Sep, [facility] [address] [place] [address]- 1032 Sep, [facility] [address] [address] Sep, [facility] [address], [place] [address] 18[address] Sep, Episodic mood disorder 296.90 [facility] [address], [place] [address] 6971 Sep, Unspecified episodic mood disorder 296.90 [facility] [address], [place] [address] 6670 Sep, [facility] [address], [place] [address] 0380 Sep, [facility] [id number] [place] [address]- 9490 Sep, Episodic mood disorder 296.90 [facility] [address], [place] [address] 3596 Sep, [facility] [address], [place] [address] 77[address] Sep, [facility] [address], [place] [address]- 1745 Sep, [facility] [address], [place] [address] 9527 Sep, Hematemesis 578.0 and Vomiting 787.03 [facility] [address], [place] [address] 66[address] Sep, Episodic mood disorder 296.90 [facility] [address], [place] [address]- 9174 Sep, [facility] [address], [place] [address]- 7669 Sep, [facility] [address], [place] [address] 05 Sep, 2014 Diabetes mellitus without mention of complication, type II or unspecified type, not stated as uncontrolled 250.00 and Other chronic pain 338.29 [place] [id number] [facility] [id number] [address] Sep, Episodic mood disorder 296.90 [facility] [address] [facility] [id number] [place] [address]- 6776 Sep, [facility] [address] [facility] [id number] [place] [address]- 2706 Sep, Episodic mood disorder 296.90 [facility] [address] [place] [place] [address] 9[address] Sep, [facility] [id number] [place] [address]- 7[address] August, [facility] [address], [place] [address] 4[address] August, [facility] [address] [place] [address]- 0[address] August, Episodic mood disorder 296.90 [facility] [address] [place] [address]- 2706 August, [facility] [address], [place] [address]- 4466 August, Unspecified episodic mood disorder 296.90 [facility] [address] [id number], [place] [address]- 5936 August, Vomiting 787.03 [facility] [address], [place] [address]- 2066 August, [facility] [address] [id number], [place] [address] 4116 August, [facility] [id number], [place] [address]- 4336 August, [facility] [id number], [place] [address]- 7706 August, [facility] [address] [id number], [place] [address]- 7796 August, [facility] [place] [facility] [address] [id number] [place] [address]- 3985 28 Jul, 2014 [facility] [place] [facility] [address] [id number] [place] [address]- 3906 14 Jul, 2014 [facility] [place] [facility] [address] [id number] [place] [address]- 4432 Jul, [facility] [place] [facility] [address] [id number] [place] [address]- 1248 30 Jun, 2014 [facility] [place] [facility] [address] [id number] [place] [address]- 7825 30 Jun, 2014 [facility] [place] [facility] [address] [id number] [place] [address]- 2878 Jun, [facility] [place] [facility] [address] [id number] [place] [address]- 6080 Jun, [facility] [place] [facility] [address] [id number] [place] [address]- 9470 Jun, [facility] [place] [facility] [address] [id number] [place] [address]- 4258 Jun, [facility] [place] [facility] [address] [id number] [place] [address]- 0748 Jun, [facility] [place] [facility] [address] [id number] [place] [address]- 4852 30 Jun, 2014 [facility] [place] [facility] [address] [id number] [place] [address]- 4844 Jun, [facility] [place] [facility] [address] [id number] [place] [address]- 9647 Jun, [facility] [place] [facility] [address] [id number] [place] [address]- 4396 Jun, [facility] [place] [facility] [address] [id number] [place] [address]- 4562 Jun, [facility] [place] [facility] [address] [id number] [place] [address]- 5284 26 Jun, 2014 [facility] [place] [facility] [address] [id number] [place] [address]- 3032 26 Jun, 2014 [facility] [place] [facility] [address] [id number] [place] [address]- 0612 24 Jun, 2014 [facility] [place] [facility] [address] [id number] [place] [address]- 2674 Jun, [facility] [place] [facility] [address] [id number] [place] [address]- 8277 Jun, [facility] [place] [facility] [address] [id number] [place] [address]- 9381 Jun, [facility] [place] [facility] [address] [id number] [place] [address]- 0563 Jun, [facility] [place] [facility] [address] [id number] [place] [address]- 1915 Jun, [facility] [place] [facility] [address] [id number] [place] [address]- 3048 Jun, [facility] [place] [facility] [address] [id number] [place] [address]- 0055 20 Jun, 2014 [facility] [place] [facility] [address] [id number] [place] [address]- 4558 20 Jun, 2014 [facility] [place] [facility] [address] [id number] [place] [address]- 1135 20 Jun, 2014 [facility] [place] [facility] [address] [id number] [place] [address]- 9897 20 Jun, 2014 [facility] [place] [facility] [address] [id number] [place] [address]- 3246 19 Jun, 2014 [facility] [place] [facility] [address] [id number] [place] [address]- 7267 19 Jun, 2014 [facility] [place] [facility] [address] [id number] [place] [address]- 9817 18 Jun, 2014 [facility] [place] [facility] [address] [id number] [place] [address]- 4419 18 Jun, 2014 [facility] [place] [facility] [address] [id number] [place] [address]- 9705 17 Jun, 2014 [facility] [place] [facility] [address] [id number] [place] [address]- 5256 17 Jun, 2014 [facility] [place] [facility] [address] [id number] [place] [address]- 6754 16 Jun, 2014 [facility] [place] [facility] [address] [id number] [place] [address]- 7299 16 Jun, 2014 [facility] [place] [facility] [address] [id number] [place] [address]- 1242 16 Jun, 2014 [facility] [place] [facility] [address] [id number] [place] [address]- 7530 16 Jun, 2014 [facility] [place] [facility] [address] [id number] [place] [address]- 0203 16 Jun, 2014 [facility] [place] [facility] [address] [id number] [place] [address]- 3696 16 Jun, 2014 [facility] [place] [facility] [address] [id number] [place] [address]- 5647 13 Jun, 2014 [facility] [place] [facility] [address] [id number] [place] [address]- 6222 13 Jun, 2014 [facility] [place] [facility] [address] [id number] [place] [address]- 8528 12 Jun, 2014 [facility] [place] [facility] [address] [id number] [place] [address]- 1336 12 Jun, 2014 [facility] [place] [facility] [address] [id number] [place] [address]- 2777 09 Jun, 2014 [facility] [place] [facility] [address] [id number] [place] [address]- 7818 09 Jun, 2014 [facility] [place] [facility] [address] [id number] [place] [address]- 1036 Jun, [facility] [place] [facility] [address] [id number] [place] [address]- 0790 Jun, [facility] [place] [facility] [address] [id number] [place] [address]- 2189 Jun, [facility] [place] [facility] [address] [id number] [place] [address]- 9366 Jun, [facility] [place] [facility] [address] [id number] [place] [address]- 4137 Jun, [facility] [place] [facility] [address] [id number] [place] [address]- 9783 Jun, [facility] [place] [facility] [address] [id number] [place] [address]- 9146 Jun, [facility] [place] [facility] [address] [id number] [place] [address]- 8514 Jun, [facility] [place] [facility] [address] [id number] [place] [address]- 9195 Jun, [facility] [place] [facility] [address] [id number] [place] [address]- 4309 Jun, [facility] [place] [facility] [address] [id number] [place] [address]- 6160 Jun, [facility] [place] [facility] [address] [id number] [place] [address]- 0237 Jun, [facility] [place] [facility] [address] [id number] [place] [address]- 4457 Jun, [facility] [place] [facility] [address] [id number] [place] [address]- 7556 Jun, [facility] [place] [facility] [address] [id number] [place] [address]- 0860 May, [facility] [place] [facility] [address] [id number] [place] [address]- 4501 May, [facility] [place] [facility] [address] [id number] [place] [address]- 6098 May, 2014 [facility] [place] [facility] [address] [id number] [place] [address]- 0506 May, 2014 [facility] [place] [facility] [address] [id number] [place] [address] 2546 24 May, 2014 [facility] [place] [facility] [address] [facility] [id number] [place] [address] 2544 24 May, 2014 [facility] [place] [facility] [address] [id number] [place] [address]- 2541 May, 2014 [facility] [place] [facility] [address] [id number] [place] [address]- 2452 May, 2014 [facility] [place] [facility] [address] [facility] [id number] [place] [address]- 4632 May, 2014 [facility] [place] [facility] [address] [facility] [id number] [place] [address]- 3611 May, 2014 [facility] [place] [facility] [address] [facility] [id number] [place] [address]- 9129 18 May, 2014 [facility] [place] [facility] [address] [facility] [id number] [place] [address]- 1846 18 May, 2014 [facility] [place] [facility] [address] [facility] [id number] [place] [address]- 2542 13 May, 2014 [facility] [place] [facility] [address] [facility] [id number] [place] [address]- 2547 13 May, 2014 [facility] [place] [facility] [address] [facility] [id number] [place] [address]- 2643 11 May, 2014 [facility] [place] [facility] [address] [facility] [id number] [place] [address]- 5621 11 May, 2014 [facility] [place] [facility] [address] [facility] [id number] [place] [address]- 5760 11 May, 2014 [facility] [place] [facility] [address] [facility] [id number] [place] [address]- 8768 May, 2014 [facility] [place] [facility] [address] [id number] [place] [address]- 3615 May, 2014 [facility] [place] [facility] [address] [id number] [place] [address]- 3334 May, 2014 [facility] [place] [facility] [address] [id number] [place] [address]- 7531 May, 2014 [facility] [place] [facility] [address] [id number] [place] [address]- 4742 May, 2014 [facility] [place] [facility] [address] [id number] [place] [address]- 6008 May, 2014 [facility] [place] [facility] [address] [facility] [id number] [place] [address]- 0706 May, 2014 [facility] [place] [facility] [address] [id number] [place] [address]- 2329 May, 2014 [facility] [place] [facility] [address] [facility] [id number] [place] [address]- 8298 May, 2014 [facility] [place] [facility] [address] [facility] [id number] [place] [address]- 3547 May, [facility] [place] [facility] [address] [facility] [id number] [place] [address]- 9880 Apr, [facility] [place] [facility] [address] [facility] [id number], [place] [address]- 5389 Apr, [facility] [place] [facility] [address] [id number] [place] [address]- 6460 Apr, [facility] [place] [facility] [address] [id number] [place] [address]- 2114 Apr, [facility] [place] [facility] [address] [facility] [id number] [place] [address]- 8562 Apr, [facility] [place] [facility] [address] [facility] [id number] [place] [address]- 2546 Apr, [facility] [place] [facility] [address] [id number] [place] [address]- 0420 Apr, [facility] [place] [facility] [address] [id number] [place] [address]- 0977 Apr, [facility] [place] [facility] [address] [id number] [place] [address]- 9025 Apr, [facility] [place] [facility] [address] [id number] [place] [address]- 8232 Apr, [facility] [place] [facility] [address] [id number] [place] [address]- 5515 Apr, [facility] [place] [facility] [address] [id number] [place] [address]- 6498 Apr, [facility] [place] [facility] [address] [id number] [place] [address]- 1244 Apr, [facility] [place] [facility] [address] [id number] [place] [address]- 8259 Apr, [facility] [place] [facility] [address] [id number] [place] [address]- 2548 Apr, [facility] [place] [facility] [address] [id number] [place] [address]- 3044 Apr, [facility] [place] [facility] [address] [id number] [place] [address]- 7914 Apr, [facility] [place] [facility] [address] [id number], [place] [address]- 3751 Apr, [facility] [place] [facility] [address] [id number] [place] [address]- 8562 Apr, [facility] [place] [facility] [address] [id number] [place] [address]- 7185 Apr, [facility] [place] [facility] [address] [id number] [place] [address]- 6789 Mar, [facility] [place] [facility] [address] [id number] [place] [address]- 9886 Mar, [facility] [address] [id number] [place] [address]- 1151 Mar, [facility] [place] [facility] [address] [id number] [place] [address]- 6106 Mar, [facility] [address] [id number] [place] [address]- 6716 Mar, [facility] [place] [facility] [address] [id number] [place] [address]- 6711 Mar, [facility] [address] [id number] [place] [address]- 2659 Mar, [facility] [place] [facility] [address] [id number] [place] [address]- 7986 Mar, [facility] [place] [facility] [address] [id number] [place] [address]- 6787 15 Mar, 2014 [facility] [address] [id number] [place] [address]- 4908 15 Mar, 2014 [facility] [place] [facility] [address] [id number] [place] [address]- 9555 15 Mar, 2014 [facility] [address] [id number] [place] [address]- 3843 15 Mar, 2014 [facility] [place] [facility] [address] [id number] [place] [address]- 5086 Mar, [facility] [place] [facility] [address] [id number] [place] 8367 Mar, [facility] [place] [facility] [address] [id number] [place] [address]- 4745 02 Mar, 2014 [facility] [place] [facility] [address] [id number] [place] [address]- 0540 Mar, [facility] [place] [facility] [address] [id number] [place] 1238 Feb, [facility] [place] [facility] [address] [id number] [place] [address]- 9195 Feb, [facility] [place] [facility] [address] [id number] [place] [address]- 2668 Feb, [facility] [place] [facility] [address] [id number] [place] [address]- 4525 Feb, [facility] [place] [facility] [address] [id number] [place] [address]- 0943 Feb, [facility] [place] [facility] [address] [id number] [place] [address]- 7196 Feb, [facility] [place] [facility] [address] [id number] [place] [address]- 7483 Feb, [facility] [place] [facility] [address] [id number] [place] [address]- 6097 18 Feb, 2014 [facility] [place] [facility] [address] [id number] [place] [address]- 5464 18 Feb, 2014 [facility] [place] [facility] [address] [id number] [place] [address]- 7286 Feb, [facility] [place] [facility] [address] [id number] [place] [address]- 2593 17 Feb, 2014 [facility] [place] [facility] [address] [id number] [place] [address]- 4209 17 Feb, 2014 [facility] [place] [facility] [address] [id number], [place] [address]- 5410 17 Feb, 2014 [facility] [place] [facility] [address] [id number] [place] [address]- 2236 14 Feb, 2014 [facility] [place] [facility] [address] [id number] [place] [address]- 0718 14 Feb, 2014 [facility] [place] [facility] [address] [id number], [place] [address]- 8239 14 Feb, 2014 [facility] [place] [facility] [address] [id number], [place] [address]- 1475 14 Feb, 2014 [facility] [place] [facility] [address] [id number] [place] [address]- 5229 Feb, [facility] [place] [facility] [address] [id number] [place] [address]- 3023 Feb, [facility] [place] [facility] [address] [id number] [place] [address]- 1174 Feb, [facility] [place] [facility] [address] [id number] [place] [address]- 4502 Feb, [facility] [place] [facility] [address] [id number] [place] [address]- 3178 Jan, [facility] [place] [facility] [address] [id number] [place] [address]- 8249 Jan, [facility] [place] [facility] [address] [id number] [place] [address]- 0250 Jan, [facility] [place] [facility] [address] [id number] [place] [address]- 5488 Jan, [facility] [place] [facility] [address] [facility] [id number] [place] [address]- 2312 Jan, [facility] [place] [facility] [address] [facility] [id number], [place] [address]- 5689 Jan, [facility] [place] [facility] [address] [id number], [place] [address]- 0631 Jan, [facility] [place] [facility] [address] [id number], [place] [address]- 7318 Jan, [facility] [place] [facility] [address] [id number], [place] [address]- 6201 Jan, [facility] [place] [facility] [address] [facility] [id number], [place] [address]- 2908 Jan, [facility] [place] [facility] [address] [facility] [id number], [place] [address]- 6706 Jan, [facility] [place] [facility] [address] [id number] [place] [address]- 8248 17 Jan, 2013 [facility] [place] [facility] [address] [id number] [place] [address]- 2856 17 Jan, 2013 [facility] [place] [facility] [address] [id number] [place] [address]- 5854 17 Jan, 2013 [facility] [place] [facility] [address] [id number] [place] [address]- 3072 15 Jan, 2013 [facility] [place] [facility] [address] [id number] [place] [address]- 0568 15 Jan, 2013 [facility] [place] [facility] [address] [id number] [place] [address]- 4737 14 Jan, 2013 [facility] [place] [facility] [address] [id number] [place] [address]- 4345 14 Jan, 2014 [facility] [place] [facility] [address] [id number] [place] [address]- 5651 13 Jan, 2013 [facility] [place] [facility] [address] [id number] [place] [address] 13 Jan, 2014 [facility] [place] [facility] [address] [id number] [place] [address] 13 Jan, 2013 [facility] [place] [facility] [address] [id number] [place] [address] 16[address] 13 Jan, 2014 [facility] [place] [facility] [address] [id number] [place] [address] 7105 10 Jan, 2014 [facility] [place] [facility] [address] [id number] [place] [address]697 02 Jan, 2014 [facility] [place] [facility] [address] [id number] [place] [address] 48[address] 02 Jan, 2014 [facility] [place] [facility] [address] [id number] [place] [address] 25 Dec, 2013 [facility] [place] [facility] [address] [id number] [place] [address] 25 Sep, 2013 [facility] [place] [facility] [address] [id number] [place] [address] 23 Sep, 2013 [facility] [place] [facility] [address] [id number] [place] [address]- [address]385 23 Sep, 2013 [facility] [place] [facility] [address] [id number] [place] [address] 4[address] 19 Sep, 2013 [facility] [place] [facility] [address] [id number] [place] [address]- 6786 19 Sep, 2013 [facility] [place] [facility] [address] [id number] [place] [address]- 2750 17 Sep, 2013 [facility] [place] [facility] [address] [id number] [place] [address]- 6877 17 Sep, 2013 [facility] [place] [facility] [address] [id number] [place] [address] 6005 09 Sep, 2013 [facility] [place] [facility] [address] [id number] [place] [address]- 1586 09 Sep, 2013 [facility] [place] [facility] [address] [id number] [place] [address]- 2862 08 Sep, 2013 [facility] [place] [facility] [address] [id number] [place] [address]- 6835 08 Sep, 2013 [facility] [place] [address] [id number], [place] [address] 04 Sep, 2013 [facility] [address] [id number], [place] [address] 04 Sep, 2013 [facility] [place] [address] [id number] [place] [address]- 0900 02 Sep, 2013 [facility] [place] [facility] [address] [id number] [place] [address]- 5325 02 Sep, 2013 [facility] [place] [address] [id number] [place] [address]- 8743 02 Sep, 2013 [facility] [place] [facility] [address] [id number] [place] [address] 7292 Dec, [facility] [place] [facility] [address] [id number] [place] [address]106 Nov, [facility] [place] [address] [id number] [place] [address]- 5914 Nov, [facility] [place] [address] [id number] [place] [address]- [address]596 Nov, [facility] [place] [facility] [address] [id number] [place] [address]- 5846 Nov, [facility] [place] [facility] [address] [id number] [place] [address]- 5078 Nov, [facility] [place] [address] [id number] [place] [address] 0811 Nov, [facility] [place] [facility] [address] [id number] [place] [address]- 7959 Nov, [facility] [address] [id number] [place] [address]- 5266 Nov, [facility] [address] [id number] [place] [address]- 2619 Nov, [facility] [place] [facility] [address] [id number] [place] [address] 3907 Nov, [facility] [place] [facility] [address] [id number] [place] [address]- 2897 Nov, [facility] [place] [facility] [address] [id number] [place] [address] 5664 Nov, [facility] [place] [facility] [address] [id number] [place] [address]- 2417 Oct, [facility] [place] [facility] [address] [id number] [place] [address]- 0970 Oct, [facility] [place] [address] [id number] [place] [address]- 1225 Oct, [facility] [address] [id number] [place] [address]- 1838 Oct, [facility] [address] [id number] [place] [address]- 7037 Oct, [facility] [address] [id number] [place] [address]- 3578 Oct, [facility] [place] [address] [id number] [place] [address] 0494 Oct, [facility] [address] [id number] [place] [address]- 5351 Oct, [facility] [address] [id number] [place] [address]- 8467 Oct, [facility] [address] [id number] [place] [address]- 65[address] Oct, [facility] [address] [id number] [place] [address]- 5358 Oct, [facility] [address] [id number] [place] [address] 9492 Oct, [facility] [address] [id number] [place] [address]- 2549 Oct, [facility] [address] [id number] [place] [address] 7802 Oct, [facility] [address] [id number] [place] [address]- 1785 Oct, [facility] [address] [id number] [place] [address]- 9325 Oct, [facility] [address] [id number] [place] [address]- 6701 Oct, [facility] [address] [id number] [place] [address]- 0359 Sep, [facility] [address] [id number] [place] [address]- 7871 Sep, [facility] [place] [facility] [address] [id number] [place] [address]- 5602 Sep, [facility] [address] [id number] [place] [address]- 6971 Sep, [facility] [address] [id number] [place] [address]- 0040 18 Sep, 2013 [facility] [address] [id number] [place] [address]- 8592 18 Sep, 2013 [facility] [address] [id number] [place] [address]- 5761 Sep, [facility] [place] [facility] [address] [id number] [place] [address]23 17 Sep, 2013 [facility] [place] [facility] [address] [id number] [place] [address] 1252 Sep, [facility] [place] [facility] [address] [id number] [place] [address] 1625 Sep, [facility] [place] [facility] [address] [id number] [place] [address] 6708 Sep, [facility] [place] [facility] [address] [id number] [place] [address]- 3696 Sep, [facility] [place] [facility] [address] [id number] [place] [address] 2891 Sep, [facility] [place] [facility] [address] [id number] [place] [address]- 0859 Sep, [facility] [place] [facility] [address] [id number] [place] [address]- 7074 Sep, [facility] [place] [facility] [address] [id number] [place] [address]- 9937 Sep, [facility] [place] [facility] [address] [id number] [place] [address]- 7116 07 Sep, 2013 [facility] [place] [facility] [address] [id number] [place] [address] 6[address] Sep, [facility] [address] [id number] [place] [address]- 9898 Sep, [facility] [place] [facility] [address] [id number] [place] [address] 0340 Sep, [facility] [address] [id number] [place] [address]- 8808 Sep, [facility] [place] [facility] [address] [id number] [place] [address]- 8287 Sep, [facility] [address] [id number] [place] [address] 3395 August, [facility] [place] [facility] [address] [id number] [place] [address]- 1711 August, [facility] [place] [facility] [address] [id number] [place] [address] 5531 August, [facility] [address] [id number] [place] [address]- 8782 August, [facility] [place] [facility] [address] [id number] [place] [address]- 2361 August, [facility] [address] [id number] [place] [address]- 7437 August, [facility] [place] [facility] [address] [id number] [place] [address]- 7175 August, [facility] [place] [facility] [address] [id number] [place] [address]- 4330 August, [facility] [place] [facility] [address] [id number] [place] [address]- 9281 August, [facility] [place] [facility] [address] [id number] [place] [address]- 9299 August, [facility] [place] [facility] [address] [id number] [place] [address] August, [facility] [place] [facility] [address] [id number] [place] [address]- 5096 Jul, [facility] [place] [facility] [address] [id number] [place] [address]- 3321 Jul, [facility] [place] [facility] [address] [id number] [place] [address]- 4807 Jul, [facility] [place] [facility] [address] [id number] [place] [address]- 4042 Jul, [facility] [place] [facility] [address] [id number] [place] [address]- 1329 Jul, [facility] [place] [facility] [address] [id number] [place] [address]- 9572 Jul, [facility] [place] [facility] [address] [id number] [place] [address]- 0611 Jul, [facility] [place] [facility] [address] [id number] [place] [address]- 6084 Jul, [facility] [place] [facility] [address] [id number] [place] [address]- 3865 Jul, [facility] [place] [facility] [address] [id number] [place] [address]- 2815 Jul, [facility] [place] [facility] [address] [id number] [place] [address]- 6281 Jul, [facility] [place] [facility] [address] [id number] [place] [address]- 8545 Jul, [facility] [place] [facility] [address] [id number] [place] [address]- 0198 Jul, [facility] [place] [facility] [address] [id number] [place] [address]- 0332 Jul, [facility] [place] [facility] [address] [id number] [place] [address]- 1738 Jul, [facility] [place] [facility] [address] [id number], [place] [address]- 6585 Jul, [facility] [place] [facility] [address] [id number] [place] [address]- 2745 Jul, [facility] [place] [facility] [address] [id number] [place] [address]- 4001 Jul, [facility] [place] [facility] [address] [id number] [place] [address]- 9197 Jul, [facility] [place] [facility] [address] [id number] [place] [address]- 2410 Jul, [facility] [place] [facility] [address] [id number] [place] [address]- 9199 Jul, [facility] [place] [facility] [address] [id number] [place] [address]- 0074 Jul, [facility] [place] [facility] [address] [id number] [place] [address]- 3013 Jul, [facility] [place] [facility] [address] [id number] [place] [address]- 7030 Jun, [facility] [place] [facility] [address] [id number] [place] [address]- 8454 Jun, [facility] [place] [facility] [address] [id number] [place] [address]- 2635 Jun, [facility] [place] [facility] [address] [id number] [place] [address]- 2969 Jun, [facility] [place] [facility] [address] [id number] [place] [address]- 6364 Jun, [facility] [place] [facility] [address] [id number] [place] [address]- 8574 Jun, [facility] [place] [facility] [address] [id number] [place] [address]- 6430 Jun, [facility] [place] [facility] [address] [id number] [place] [address]- 8885 Jun, [facility] [place] [facility] [address] [id number] [place] [address]- 1142 18 Jun, 2013 [facility] [place] [facility] [address] [id number] [place] [address]- 3517 18 Jun, 2013 [facility] [place] [facility] [address] [id number] [place] [address]- 4696 17 Jun, 2013 [facility] [place] [facility] [address] [id number] [place] [address]- 7556 Jun, [facility] [place] [facility] [address] [id number] [place] [address]- 2467 May, [facility] [place] [facility] [address] [id number] [place] [address]- 7419 May, [facility] [place] [facility] [address] [id number] [place] [address]- 6821 Apr, [facility] [place] [facility] [address] [id number] [place] [address]- 4050 Apr, [facility] [place] [facility] [address] [id number] [place] [address]- 5920 30 Apr, 2013 [facility] [place] [facility] [address] [id number] [place] [address]- 9369 Apr, [facility] [place] [facility] [address] [id number] [place] [address]- 2213 Apr, [facility] [place] [facility] [address] [id number] [place] [address]- 9005 Apr, [facility] [place] [facility] [address] [id number] [place] [address]- 1067 Apr, [facility] [place] [facility] [address] [id number] [place] [address]- 4492 Apr, [facility] [place] [facility] [address] [id number] [place] [address]- 3639 14 Apr, 2013 [facility] [place] [facility] [address] [id number] [place] [address]- 5536 Apr, [facility] [place] [facility] [address] [id number] [place] [address]- 5328 Apr, [facility] [place] [facility] [address] [id number] [place] [address] Mar, [facility] [place] [facility] [address] [id number] [place] Mar, [facility] [place] [facility] [address] [id number] [place]41 Mar, [facility] [place] [facility] [address] [id number] [place] [address]- 1955 Mar, [facility] [place] [facility] [address] [id number] [place] [address]- 3593 Feb, [facility] [place] [facility] [address] [id number] [place] [address]- 4391 Feb, [facility] [place] [facility] [address] [id number], [place] [address]- 8935 Feb, [facility] [place] [facility] [address] [id number], [place] [address]- 4423 Feb, [facility] [place] [facility] [address] [id number] [place] [address]- 3917 Feb, [facility] [place] [facility] [address] [id number], [place] [address]- 9299 Feb, [facility] [place] [facility] [address] [id number], [place] [address]- 4725 Feb, [facility] [place] [facility] [address] [id number], [place] [address]- 6573 Feb, [facility] [place] [facility] [address] [id number], [place] [address]- 7584 Feb, [facility] [place] [facility] [address] [id number], [place] [address]- 2679 Feb, [facility] [place] [facility] [address] [id number] [place] [address]- 4957 02 Feb, 2013 [facility] [address] [id number] [place] [address]- 4871 Jan, 2012 [facility] [place] [facility] [address] [id number] [place] [address]- 5709 Jan, [facility] [address] [id number] [place] [address]- 3329 Jan, [facility] [place] [facility] [address] [id number] [place] [address]- 3179 Jan, [facility] [address] [id number] [place] [address]- 4522 Jan, [facility] [place] [facility] [address] [id number] [place] [address]- 9888 Jan, [facility] [address] [id number] [place] [address]- 2386 Jan, [facility] [address] [id number] [place] [address]- 7133 02 Jan, 2013 [facility] [place] [facility] [address] [id number] [place] [address]- 2435 30 Sep, 2012 [facility] [place] [facility] [address] [id number] [place] [address]- 4340 25 Sep, 2012 [facility] [place] [facility] [address] [id number] [place] [address]- 254 18 Sep, 2012 [facility] [place] [facility] [address] [id number] [place] [address]- 2545 17 Sep, 2012 [facility] [place] [facility] [address] [id number] [place] [address] 2547 17 Sep, 2012 [facility] [place] [facility] [address] [id number] [place] [address]- 2549 16 Sep, 2012 [facility] [place] [facility] [address] [id number] [place] [address]- 2540 13 Dec, 2012 [facility] [place] [facility] [address] [id number] [place] [address]- 5710 11 Dec, 2012 [facility] [place] [facility] [address] [id number] [place] [address]- 1190 05 Dec, 2012 [facility] [place] [facility] [address] [id number] [place] [address]- 3148 04 Dec, 2012 [facility] [place] [facility] [address] [id number] [place] [address]- 1715 30 Nov, 2012 [facility] [place] [facility] [address] [id number] [place] [address]- 6855 Nov, [facility] [place] [facility] [address] [id number] [place] [address]- 3092 Nov, [facility] [place] [facility] [address] [id number] [place] [address]- 6904 Nov, [facility] [place] [facility] [address] [id number] [place] [address]- 1529 Nov, [facility] [place] [facility] [address] [id number] [place] [address]- 9911 Nov, [facility] [place] [facility] [address] [id number] [place] [address]- 3803 Nov, [facility] [place] [facility] [address] [id number] [place] [address]- 1118 Oct, [facility] [place] [facility] [address] [id number] [place] [address]- 2431 Oct, [facility] [place] [facility] [address] [id number] [place] [address]- 4059 Oct, [facility] [place] [facility] [address] [id number] [place] [address]- 2351 Oct, [facility] [place] [facility] [address] [id number] [place] 7614 15 Oct, 2012 [facility] [place] [facility] [address] [id number] [place] [address]- 5775 Oct, [facility] [address] [id number] [place] [address]- 2011 Sep, [facility] [place] [facility] [address] [id number] [place] [address]- 8249 Sep, [facility] [place] [facility] [address] [id number] [place] [address]- 2243 Sep, [facility] [place] [facility] [address] [id number] [place] [address]- 6148 14 Sep, 2012 [facility] [place] [facility] [address] [id number] [place] [address]- 2480 Sep, [facility] [place] [facility] [address] [id number] [place] [address]- 5414 Sep, [facility] [address] [id number] [place] [address]- 7533 Sep, [facility] [place] [facility] [address] [id number] [place] [address]- 2389 Sep, [facility] [place] [facility] [address] [id number] [place] [address]- 8804 Sep, [facility] [place] [facility] [address] [id number] [place] [address]- 0858 August, [facility] [place] [facility] [address] [id number] [place] [address]- 9706 August, [facility] [place] [facility] [address] [id number] [place] [address]- 2743 August, [facility] [place] [facility] [address] [id number] [place] [address]- 5105 August, [facility] [place] [facility] [address] [id number] [place] [address]- 2568 August, [facility] [place] [facility] [address] [id number] [place] [address]- 4550 August, [facility] [place] [facility] [address] [id number] [place] [address]- 1066 August, [facility] [address] [id number] [place] [address]- 4581 August, [facility] [address] [id number] [place] [address]- 9676 Jul, [facility] [address] [id number] [place] [address]- 9356 Jul, [address] [id number] Jul [facility] [address] [id number] [place] [address]- 9850 Jun, [facility] [address] [id number] [place] [address]- 5546 Jun, [facility] [address] [id number] [place] [address]- 6669 Jun, [facility] [address] [id number] [place] [address]- 3320 Jun, [facility] [address] [id number] [place] [address]- 3318 Jun, [facility] [address] [facility] [id number] [place] [address]- 4550 Jun, [facility] [address] [id number] [place] [address]- 9466 May, [facility] [address] [id number] [place] [address]- 4226 May, [facility] [address] [id number] [place] [address]- 5316 May, [facility] [address] [id number] [place] [address]- 2546 May, [facility] [address] [id number] [place] [address]- 4576 May, [facility] [address] [id number] [place] [address]- 4222 Apr, [facility] [place] [facility] [address] [id number] [place] [address]- 1737 Apr, [facility] [place] [facility] [address] [id number] [place] [address]- 7075 Apr, [facility] [place] [facility] [address] [id number] [place] [address]- 4494 Apr, [facility] [address] [id number] [place] [address]- 5125 Apr, [facility] [place] [facility] [address] [id number] [place] [address]- 9965 Apr, [facility] [address] [id number] [place] [address]- 6246 Mar, [facility] [address] [id number] [place] [address]- 0514 Mar, [facility] [place] [facility] [address] [id number] [place] [address]- 3603 Mar, [facility] [address] [id number] [place] [address]- 2538 Mar, [facility] [place] [facility] [address] [id number] [place] [address]- 2594 Mar, [facility] [place] [facility] [address] [id number], [place] [address]- 8533 18 Mar, 2012 [facility] [place] [facility] [address] [id number] [place] [address]- 2081 18 Mar, 2012 [facility] [place] [facility] [address] [id number] [place] [address]- 2123 Mar, [facility] [place] [facility] [address] [id number], [place] [address]- 1569 Mar, [facility] [place] [facility] [address] [id number], [place] [address]- 5511 05 Mar, 2012 [facility] [place] [facility] [address] [id number] [place] [address]- 4129 Mar, [facility] [place] [facility] [address] [id number] [place] [address]- 9623 Feb, [facility] [place] [facility] [address] [facility] [id number] [place] [address]- 9325 Feb, [facility] [place] [facility] [address] [id number] [place] [address]- 3055 Feb, [facility] [place] [facility] [address] [id number] [place] [address]- 9283 Feb, [facility] [place] [facility] [address] [facility] [id number] [place] [address]- 2250 Feb, [facility] [place] [facility] [address] [id number] [place] [address]- 7273 Feb, [facility] [place] [facility] [address] [facility] [id number] [place] [address]- 5278 Feb, [facility] [place] [facility] [address] [facility] [id number] [place] [address]- 2354 Feb, [facility] [place] [facility] [address] [facility] [id number] [place] [address]- 7037 Feb, [facility] [place] [facility] [address] [facility] [id number], [place] [address]- 7637 Feb, [facility] [place] [facility] [address] [facility] [id number], [place] [address]- 2610 Feb, [facility] [place] [facility] [address] [facility] [id number], [place] [address]- 8709 Jan, [facility] [place] [facility] [address] [facility] [id number] [place] [address]- 6214 Jan, [facility] [place] [facility] [address] [facility] [id number], [place] [address]- 5274 Jan, [facility] [place] [facility] [address] [id number] [place] [address]- 7885 23 Jan, 2012 [facility] [place] [facility] [address] [id number] [place] [address]- 3122 Jan, [facility] [place] [facility] [address] [id number] [place] [address]- 0816 Jan, [facility] [place] [facility] [address] [id number] [place] [address]- 3634 09 Jan, 2012 [facility] [place] [facility] [address] [id number] [place] [address]- 9742 24 Dec, 2011 [facility] [place] [facility] [address] [id number] [place] [address]- 2563 17 Dec, 2011 [facility] [place] [facility] [address] [id number] [place] [address]- 5311 13 Dec, 2011 [facility] [place] [facility] [address] [id number] [place] [address]- 6137 12 Dec, 2011 [facility] [place] [facility] [address] [id number] [place] [address]- 4902 23 Nov, 2011 [facility] [place] [facility] [address] [id number] [place] [address]- 0008 Nov, [facility] [place] [facility] [address] [id number] [place] [address]- 6105 17 Nov, 2011 [facility] [place] [facility] [address] [id number] [place] [address]- 2553 15 Nov, 2011 [facility] [place] [facility] [address] [id number] [place] [address]- 2576 14 Nov, 2011 [facility] [place] [facility] [address] [id number] [place] [address]- 4700 13 Nov, 2011 [facility] [place] [facility] [address] [id number] [place] [address]- 7566 10 Nov, 2011 [facility] [place] [facility] [address] [id number] [place] [address]- 7372 Nov, [facility] [place] [facility] [address] [id number] [place] [address] Nov, [facility] [place] [facility] [address] [id number] [place] [address] Nov, [facility] [place] [facility] [address] [id number] [place] [address] Nov, [facility] [place] [facility] [address] [id number] [place] [address] Nov, [facility] [place] [facility] [address] [id number] [place] [address] Nov, [facility] [place] [facility] [address] [id number] [place] [address] Oct, [facility] [place] [facility] [address] [id number] [place] [address] Oct, [facility] [place] [facility] [address] [id number] [place] [address] Oct, [facility] [place] [facility] [address] [id number] [place] [address] Oct, [facility] [place] [facility] [address] [id number] [place] [address] Oct, [facility] [place] [facility] [address] [id number] [place] [address] Oct, [facility] [place] [facility] [address] [id number] [place] [address] Oct, [facility] [place] [facility] [address] [id number] [place] [address] Oct, [facility] [place] [facility] [address] [id number] [place] [address] Oct, [facility] [place] [facility] [address] [id number] [place] [address] Sep, [facility] [place] [facility] [address] [id number] [place] [address] Sep, [facility] [place] [facility] [address] [id number] [place] [address] Sep, [facility] [place] [facility] [address] [id number] [place] [address] Sep, [facility] [place] [facility] [address] [id number] [place] [address] Sep, [facility] [place] [facility] [address] [id number] [place] [address] Sep, [facility] [place] [facility] [address] [id number] [place] [address] Sep, [facility] [place] [facility] [address] [id number] [place] [address] Sep, [facility] [place] [facility] [address] [id number] [place] [address] August, [facility] [place] [facility] [address] [id number] [place] [address] August, [facility] [place] [facility] [address] [id number] [place] [address] August, [facility] [place] [facility] [address] [id number] [place] [address] August, [facility] [place] [facility] [address] [id number] [place] [address] August, [facility] [place] [facility] [address] [id number] [place] [address] August, [facility] [place] [facility] [address] [id number] [place] [address] August, [facility] [place] [facility] [address] [id number] [place] [address] August, [facility] [place] [facility] [address] [id number] [place] [address] August, [facility] [address] [facility] [id number] [place] [address] August, [facility] [address] [facility] [id number] [address] August, [facility] [address] [facility] [id number] [address] August, [facility] [address] [facility] [id number], [place] [address] Oct, IMMUNIZATIONS No Known Immunizations SOCIAL HISTORY Never Assessed REASON FOR VISIT Phone Call PLAN OF CARE VITAL SIGNS MEDICATIONS [...]
--- OUTSIDE RECORDS SUMMARY | 2018-02-11 12:40 | XMS REPORT ---
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 mood [affective] disorder F39 [facility] [address] [address]1667 Jul, [facility] [address] [id number] [place] [address]- 9324 31 Jun, 2015 Elevated AST (SGOT) R74.0 [place] [id number] [place] [address] 04056- 0409 31 Jun, 2015 [place] [id number] [place] [address] 27223- 7127 24 Jun, 2015 Upper respiratory infection J06.9 and Type 2 diabetes mellitus with diabetic polyneuropathy E11.42 [facility] [id number] [place] [address] 62732- 9093 Jun, Unspecified mood [affective] disorder [place] [id number] [place] [address] 74909- 4014 Jun, [place] [id number] [place] [address] 08743- 6717 Jun, Unspecified mood [affective] disorder F39 [place] [id number] [place] [address] 79780- 6467 Jun, Unspecified mood [affective] disorder 9 [place] [id number] [place] [address] 18085- 2141 18 Jun, 2015 Unspecified mood [affective] disorder 9 [place] [id number] [place] [address] 35078- 2082 15 Jun, 2015 Unspecified mood [affective] disorder F39 [place] [id number] [place] [address] 50015- 2487 14 Jun, 2015 [place] [id number] [place] [address] 48018- 2228 09 Jun, 2015 Type 2 diabetes mellitus with hyperglycemia E11.65 ; Oxygen dependent Z99.81 ; Folliculitis L73.9 ; Dysuria R30.0 ; Encounter for contraceptive management Z30.9 and Dog bite W54.0XXA [place] [id number] [place] [address] 35949- 3963 04 Jun, 2015 Unspecified mood [affective] disorder F39 [facility] [address] [address]- 7675 Jun, Type 2 diabetes mellitus with hyperglycemia E11.65 [facility] [id number] [place] [address] 81400- 3144 May, Unspecified mood [affective] disorder F39 [facility] [id number] [place] [address] 82441- 0871 May, [facility] [id number] [place] [address] 50745- 9564 May, [facility] [id number] [place] [address] 24574- 0007 May, [facility] [id number] [place] [address] 89972- 1538 Apr, [facility] [id number] [place] [address] 03838- 1196 Apr, Unspecified mood [affective] disorder F39 [facility] [id number] [place] [address] 38094- 6797 Apr, [facility] [id number] [place] [address] 44732- 8765 Apr, [facility] [id number] [place] [address] 42430- 3098 Apr, [facility] [id number] [place] [address] 14626- 7739 Apr, Dysuria R30.0 and Well woman exam (no gynecological exam) Z00.00 [facility] [id number] [place] [address] 94140- 4230 Mar, [facility] [id number] [place] [address] 14559- 9873 Mar, [facility] [id number] [place] [address] [id number] Mar, Dental examination Z01.20 [facility] [id number] [place] [address] 06340- 5278 Mar, Chronic diarrhea K52.9 ; Intractable vomiting with nausea, vomiting of unspecified type R11.2 ; Cellulitis, unspecified cellulitis site L03.90 ; Type 2 diabetes mellitus with diabetic polyneuropathy E11.42 and Postinflammatory hyperpigmentation L81.0 [facility] [id number] [place] [address] 23981- 8054 Mar, Unspecified mood [affective] disorder F39 [facility] [id number] [place] [address] 40263- 2798 Mar, Unspecified mood [affective] disorder F39 [facility] [id number] [place] [address] 08679- 7985 Mar, [facility] [id number] [place] [address] 96907- 7747 Mar, [facility] [id number] [place] [address] 91510- 8700 Mar, [facility] [id number] [place] [address] 31570- 2197 Mar, [facility] [id number] [place] [address] 73961- 8102 Mar, [facility] [id number] [place] [address] 94611- 8929 Mar, [facility] [id number] [place] [address] 92447- 3430 Feb, Unspecified mood [affective] disorder F39 [facility] [id number] [place] [address] 74860- 9220 Feb, [facility] [id number] [place] [address] 11892- 6471 Feb, [facility] [id number] [place] [address] 33355- 2492 Jan, Unspecified mood [affective] disorder F39 [facility] [id number] [id number] [id number] Jan, Encounter for dental examination Z01.20 [facility] [id number] [place] [address] 89843- 0389 Jan, [facility] [id number] [place] [address] 05467- 9972 Jan, [facility] [id number] [place] [address] 26317- 6401 Jan, [facility] [id number] [place] [address] 09783- 8558 Jan, [facility] [id number] [place] [address] 51760- 0218 Jan, [facility] [id number] [place] [address] 96031- 6354 Jan, Abdominal abscess K65.1 and Dental caries K02.9 [facility] [id number] [place] [address] 30055- 4093 Jan, [facility] [id number] [place] [address] 86186- 8953 Dec, Diabetes with neurological manifestations, type II or unspecified type, not stated as uncontrolled 250.60 ; Essential hypertension, benign 401.1 ; Concussion 850.9 and Skin texture changes 782.8 [facility] [address], [place] [address]- 7391 Dec, [facility] [id number] [place] [address] 67658- 8974 Dec, [facility] [id number] [place] [address] 78161- 2881 Dec, [facility] [id number] [place] [address] 07715- 8260 Dec, [facility] [address] [address]- 9375 17 Dec, 2014 Affective disorder 296.90 [facility] [id number] [place] [address] 87182 2546 14 Dec, 2014 [facility] [id number] [place] [address] 06296 2546 10 Dec, 2014 Affective disorder 296.90 [facility] [id number] [place] [address] 46057 2543 04 Sep, 2014 [facility] [id number] [place] [address] 39402 2547 04 Dec, 2014 [facility] [id number] [place] [address] 26370- 3111 04 Dec, 2014 [facility] [id number] [place] [address] 09823- 4630 03 Dec, 2014 [facility] [id number] [place] [address] 91747- 1118 Nov, Affective disorder 296.90 [facility] [id number] [place] [address] 39634 2544 Nov, [facility] [id number] [place] [address] 71454 2542 Nov, Affective disorder 296.90 [facility] [id number] [place] [address] 80198 2546 Nov, Diarrhea 787.91 [facility] [address], [place] [address] 2546 Nov, [facility] [id number] [place] [address] 62371 2546 Nov, Diarrhea 787.91 [facility] [id number] [place] [address] 06925 2546 Nov, Diarrhea 787.91 and Hyperlipidemia 272.4 [facility] [id number] [place] [address] 94165- 9235 Nov, Diarrhea 787.91 [facility] [id number] [place] [address] 54532- 2151 Nov, Affective disorder 296.90 [facility] [id number] [place] [address] 95860- 8755 Nov, Affective disorder 296.90 [facility] [id number] [place] [address] 66333- 0753 Nov, Affective disorder 296.90 [facility] [id number] [place] [address] 55063- 2288 Nov, [facility] [id number] [place] [address] 34415- 9922 Nov, [facility] [id number] [place] [address] 86961- 5291 Nov, [facility] [id number] [place] [address] 30265- 7493 Nov, Episodic mood disorder 296.90 [facility] [id number] [place] [address] 57469- 9963 Nov, [facility] [id number] [place] [address] 95640- 5921 Nov, [facility] [id number] [place] [address] 54783- 4321 Nov, [facility] [id number] [place] [address] 30173- 0628 Nov, [facility] [id number] [place] [address] 89248- 9312 Nov, [facility] [id number] [place] [address] 76735- 7505 Nov, Lymphedema 457.1 ; Hyperlipidemia 272.4 ; Essential hypertension, benign 401.1 and Numbness of toes 782.0 [facility] [id number] [place] [address], [place] [address]- 0377 Nov, Episodic mood disorder 296.90 [facility] [address] [facility] [place] [place] [id number] [place] [address]- 6981 Oct, 2014 [facility] [place] [facility] [address] [facility] [place] [id number] [place] [address]- 2849 Oct, 2014 [facility] [address] [facility] [place] [id number] [place] [address]- 5070 Oct, 2014 [facility] [place] [facility] [address] [facility] [place] [id number] [place] [address]- 5280 Oct, 2014 [facility] [id number] [place] [address], [place] [address]- 3558 Oct, 2014 [facility] [place] [facility] [address] [id number] [address]- 2985 Oct, 2014 [facility] [place] [facility] [id number] [place] [address], [place] [address]- 1851 Oct, 2014 [facility] [place] [facility] [address] [facility] [place] [id number] [place] [address]- 6797 Oct, [facility] [place] [facility] [address] [address]- 9458 Oct, Episodic mood disorder 296.90 [facility] [place] [facility] [address] [id number] [address]- 1603 Sep, [facility] [place] [facility] [address] [id number] [address]- 9033 Sep, [facility] [place] [facility] [address] [facility] [id number] [place] [address]- 6052 Sep, [facility] [place] [facility] [address] [id number] [address] Sep, [facility] [place] [facility] [address] [facility] [place] [id number] [place] [address] Sep, [facility] [place] [facility] [id number] [address] Sep, Episodic mood disorder 296.90 [facility] [id number] [address] Sep, Unspecified episodic mood disorder 296.90 [facility] [id number] [address] Sep, [facility] [id number] [place] [address]- [address] Sep, [facility] [id number] [place] [address]- [address] 16 Sep, 2014 Episodic mood disorder 296.90 [facility] [id number] [place] [address]- [address] Sep, [facility] [id number] [place] [address]- [address]887 Sep, [facility] [id number] [place] [address] 96[address]- [address]370 Sep, [facility] [id number] [place] [address]- [address] Sep, Hematemesis 578.0 and Vomiting 787.03 [facility] [id number] [address] Sep, Episodic mood disorder 296.90 [facility] [id number] [address] 08 Sep, 2014 [facility] [id number] [address] Sep, [facility] [id number] [place] [address]- [address] Sep, Diabetes mellitus without mention of complication, type II or unspecified type, not stated as uncontrolled 250.00 and Other chronic pain 338.29 [facility] [id number] [address] Sep, Episodic mood disorder 296.90 [facility] [address] [id number] [address] Sep, [facility] [id number] [address] Sep, Episodic mood disorder 296.90 [facility] [id number] [address] Sep, [facility] [id number] [address] August, [facility] [address] [id number] [address] August, [facility] [id number] [address] August, Episodic mood disorder 296.90 [facility] [id number] [address]- 9046 August, [facility] [id number] [address] August, Unspecified episodic mood disorder 296.90 [facility] [id number] [address] 1441 August, Vomiting 787.03 [facility] [id number] [address] August, [facility] [id number] [address] 1016 August, [facility] [id number] [address] August, [facility] [address] [id number] [address] 4286 August, [facility] [address] [id number] [place] [address] 2546 August, [facility] [address] [id number] [place] [address] Jul, [facility] [place] [facility] [address] [id number] [place] [address]- 1474 14 Jul, 2014 [facility] [place] [facility] [address] [id number] [place] [address]- 5167 Jul, [facility] [place] [facility] [address] [id number] [place] [address] 1988 30 Jun, 2014 [facility] [place] [facility] [address] [id number] [place] [address]- 7825 30 Jun, 2014 [facility] [place] [facility] [address] [id number] [place] [address]- 7157 30 Jun, 2014 [facility] [place] [facility] [address] [id number] [place] [address]- 3416 30 Jun, 2014 [facility] [place] [facility] [address] [id number] [place] [address]- 7433 Jun, [facility] [place] [facility] [address] [id number] [place] [address]- 9516 30 Jun, 2014 [facility] [place] [facility] [address] [id number] [place] [address]- 1849 Jun, [facility] [place] [facility] [address] [id number] [place] [address]- 5971 Jun, [facility] [place] [facility] [address] [id number] [place] [address]- 4896 Jun, [facility] [place] [facility] [address] [id number] [place] [address]- 9336 Jun, [facility] [place] [facility] [address] [id number] [place] [address]- 2137 Jun, [facility] [place] [facility] [address] [id number] [place] [address]- 1878 Jun, [facility] [place] [facility] [address] [id number] [place] [address]- 1818 Jun, [facility] [place] [facility] [address] [id number], [place] [address]- 0025 26 Jun, 2014 [facility] [place] [facility] [address] [id number] [place] [address]- 3153 24 Jun, 2014 [facility] [place] [facility] [address] [id number] [place] [address]- 5425 Jun, [facility] [place] [facility] [address] [id number] [place] [address]- 1587 Jun, [facility] [place] [facility] [address] [id number] [place] [address]- 1327 Jun, [facility] [place] [facility] [address] [id number] [place] [address]- 4606 Jun, [facility] [place] [facility] [address] [id number] [place] [address]- 6961 Jun, [facility] [place] [facility] [address] [id number] [place] [address]- 0717 Jun, [facility] [place] [facility] [address] [id number] [place] [address]- 6908 Jun, [facility] [place] [facility] [address] [id number] [place] [address]- 6020 Jun, [facility] [place] [facility] [address] [id number] [place] [address]- 1623 Jun, [facility] [place] [facility] [address] [id number] [place] [address]- 1346 Jun, [facility] [place] [facility] [address] [id number] [place] [address]- 9221 19 Jun, 2014 [facility] [place] [facility] [address] [id number] [place] [address]- 0858 19 Jun, 2014 [facility] [place] [facility] [address] [id number] [place] [address]- 8747 18 Jun, 2014 [facility] [place] [facility] [address] [id number] [place] [address]- 9199 18 Jun, 2014 [facility] [place] [facility] [address] [id number] [place] [address]- 3506 17 Jun, 2014 [facility] [place] [facility] [address] [id number] [place] [address]- 2248 17 Jun, 2014 [facility] [place] [facility] [address] [id number] [place] [address]- 9446 16 Jun, 2014 [facility] [place] [facility] [address] [id number] [place] [address]- 0993 16 Jun, 2014 [facility] [place] [facility] [address] [id number] [place] [address]- 6556 16 Jun, 2014 [facility] [place] [facility] [address] [id number] [place] [address]- 4406 16 Jun, 2014 [facility] [place] [facility] [address] [id number] [place] [address]- 8817 16 Jun, 2014 [facility] [place] [facility] [address] [id number] [place] [address]- 1497 16 Jun, 2014 [facility] [place] [facility] [address] [id number] [place] [address]- 5553 13 Jun, 2014 [facility] [place] [facility] [address] [id number] [place] [address]- 1643 13 Jun, 2014 [facility] [place] [facility] [address] [id number] [place] [address]- 1035 12 Jun, 2014 [facility] [place] [facility] [address] [id number] [place] [address]- 8880 12 Jun, 2014 [facility] [place] [facility] [address] [id number] [place] [address]- 0374 09 Jun, 2014 [facility] [place] [facility] [address] [id number] [place] [address]- 6122 Jun, [facility] [place] [facility] [address] [id number] [place] [address]- 1906 09 Jun, 2014 [facility] [place] [facility] [address] [id number] [place] [address]- 6264 Jun, [facility] [place] [facility] [address] [id number] [place] [address]- 5592 Jun, [facility] [place] [facility] [address] [id number] [place] [address]- 3843 Jun, [facility] [place] [facility] [address] [facility] [id number] [place] [address]- 0416 Jun, [facility] [place] [facility] [address] [id number] [place] [address]- 6532 Jun, [facility] [place] [facility] [address] [id number] [place] [address]- 4502 Jun, [facility] [place] [facility] [address] [id number] [place] [address]- 6506 Jun, [facility] [place] [facility] [address] [facility] [id number] [place] [address]- 7391 Jun, [facility] [place] [facility] [address] [id number] [address]- 2390 Jun, [facility] [place] [facility] [address] [id number] [place] [address]- 8069 Jun, [facility] [place] [facility] [address] [facility] [id number] [place] [address]- 1694 Jun, [facility] [place] [facility] [address] [id number], [place] [address]- 1428 Jun, [facility] [place] [facility] [address] [id number], [place] [address]- 7834 Jun, [facility] [place] [facility] [address] [id number] [place] [address]- 7461 May, [facility] [place] [facility] [address] [id number], [place] [address]- 0768 May, [facility] [place] [facility] [address] [facility] [id number], [place] [address]- 4552 May, [facility] [place] [facility] [address] [id number] [place] [address] 2546 May, 2014 [facility] [place] [facility] [address] [id number] [place] [address] 2546 May, 2014 [facility] [place] [facility] [address] [id number] [place] [address] 2546 24 May, 2014 [facility] [place] [facility] [address] [facility] [id number] [place] [address] 2546 20 May, 2014 [facility] [place] [facility] [address] [id number] [place] [address]- 2542 May, 2014 [facility] [place] [facility] [address] [facility] [id number] [place] [address]- 6626 May, 2014 [facility] [place] [facility] [address] [facility] [id number] [place] [address]- 1848 20 May, 2014 [facility] [place] [facility] [address] [facility] [id number] [place] [address]- 1827 18 May, 2014 [facility] [place] [facility] [address] [facility] [id number] [place] [address]- 2288 18 May, 2014 [facility] [place] [facility] [address] [facility] [id number] [place] [address]- 6818 13 May, 2014 [facility] [place] [facility] [address] [facility] [id number] [place] [address]- 5724 13 May, 2014 [facility] [place] [facility] [address] [facility] [id number], [place] [address]- 2541 11 May, 2014 [facility] [place] [facility] [address] [facility] [id number] [place] [address]- 2546 11 May, 2014 [facility] [place] [facility] [address] [facility] [id number] [place] [address]- 2546 11 May, 2014 [facility] [place] [facility] [address] [facility] [id number] [place] [address]- 6646 11 May, 2014 [facility] [place] [facility] [address] [facility] [id number] [place] [address]- 4271 May, 2014 [facility] [place] [facility] [address] [id number] [place] [address]- 8715 May, 2014 [facility] [place] [facility] [address] [id number] [place] 8196 May, 2014 [facility] [place] [facility] [address] [id number] [place] [address]- 7593 May, 2014 [facility] [place] [facility] [address] [id number] [place] [address]- 8775 May, 2014 [facility] [place] [facility] [address] [id number] [place] [address]- 1811 May, 2014 [facility] [place] [facility] [address] [facility] [id number] [place] [address]- 5577 May, 2014 [facility] [place] [facility] [address] [facility] [id number] [place] [address]- 8579 May, 2014 [facility] [place] [facility] [address] [id number] [place] [address]- 9875 May, [facility] [place] [facility] [address] [facility] [id number] [place] [address]- 5749 Apr, [facility] [place] [facility] [address] [facility] [id number] [place] [address]- 4306 Apr, [facility] [place] [facility] [address] [facility] [id number] [place] [address]- 1642 Apr, [facility] [place] [facility] [address] [id number] [place] [address]- 8656 Apr, [facility] [place] [facility] [address] [id number] [place] [address]- 0446 Apr, [facility] [place] [facility] [address] [facility] [id number] [place] [address]- 0591 Apr, [facility] [place] [facility] [address] [facility] [id number] [place] [address]- 6232 Apr, [facility] [place] [facility] [address] [id number] [place] [address]- 4592 Apr, [facility] [place] [facility] [address] [id number] [place] [address]- 1003 Apr, [facility] [place] [facility] [address] [id number] [place] [address]- 2788 Apr, [facility] [place] [facility] [address] [id number] [place] [address]- 7723 Apr, [facility] [place] [facility] [address] [id number] [place] [address]- 9886 Apr, [facility] [place] [facility] [address] [id number] [place] [address]- 0141 Apr, [facility] [place] [facility] [address] [id number] [place] [address]- 6402 Apr, [facility] [place] [facility] [address] [id number], [place] [address]- 4614 Apr, [facility] [place] [facility] [address] [id number] [place] [address]- 7824 Apr, [facility] [place] [facility] [address] [id number], [place] [address]- 0419 Apr, [facility] [place] [facility] [address] [id number], [place] [address]- 8598 Apr, [facility] [place] [facility] [address] [id number], [place] [address]- 6000 Apr, [facility] [place] [facility] [address] [id number] [place] [address]- 2293 Apr, [facility] [place] [facility] [address] [id number], [place] [address]- 7316 Mar, [facility] [place] [facility] [address] [id number] [place] [address]- 9026 Mar, [facility] [place] [facility] [address] [id number] [place] [address]- 5310 24 Mar, 2014 [facility] [place] [facility] [address] [id number] [place] [address]- 3706 24 Mar, 2014 [facility] [place] [facility] [address] [id number] [place] [address]- 7776 Mar, [facility] [place] [facility] [address] [id number] [place] [address]- 5146 Mar, [facility] [place] [facility] [address] [id number] [place] [address]- 5490 18 Mar, 2014 [facility] [place] [facility] [address] [id number] [place] [address]- 7536 18 Mar, 2014 [facility] [place] [facility] [address] [id number] [place] [address]- 1968 15 Mar, 2014 [facility] [place] [facility] [address] [id number] [place] [address]- 8838 15 Mar, 2014 [facility] [place] [facility] [address] [id number] [place] [address]- 2583 15 Mar, 2014 [facility] [place] [facility] [address] [id number] [place] [address]- 0075 15 Mar, 2014 [facility] [place] [facility] [address] [id number] [place] [address]- 5983 Mar, [facility] [place] [facility] [address] [id number] [place] [address]- 3152 Mar, [facility] [place] [facility] [address] [id number] [place] [address]- 2378 Mar, [facility] [place] [facility] [address] [id number] [place] 0486 Mar, [facility] [place] [facility] [address] [id number] [place] [address]- 7437 Feb, [facility] [place] [facility] [address] [id number] [place] 9686 Feb, [facility] [place] [facility] [address] [id number] [place] [address]- 6055 Feb, [facility] [place] [facility] [address] [id number] [place] [address]- 5188 Feb, [facility] [place] [facility] [address] [id number] [place] [address]- 0427 Feb, [facility] [place] [facility] [address] [id number] [place] [address]- 6328 Feb, [facility] [place] [facility] [address] [id number] [place] [address]- 9586 19 Feb, 2014 [facility] [place] [facility] [address] [id number] [place] [address]- 8625 18 Feb, 2014 [facility] [place] [facility] [address] [id number] [place] [address]- 8050 18 Feb, 2014 [facility] [place] [facility] [address] [id number] [place] [address]- 9209 17 Feb, 2014 [facility] [place] [facility] [address] [id number] [place] [address]- 5422 17 Feb, 2014 [facility] [place] [facility] [address] [id number] [place] [address]- 2016 17 Feb, 2014 [facility] [place] [facility] [address] [id number] [place] [address]- 6883 17 Feb, 2014 [facility] [place] [facility] [address] [id number] [place] [address]- 5437 14 Feb, 2014 [facility] [place] [facility] [address] [id number] [place] [address]- 5911 14 Feb, 2014 [facility] [place] [facility] [address] [id number] [place] [address]- 3398 14 Feb, 2014 [facility] [place] [facility] [address] [id number] [place] [address]- 3390 14 Feb, 2014 [facility] [place] [facility] [address] [id number] [place] [address]- 3040 Feb, [facility] [place] [facility] [address] [id number] [place] [address]- 8658 Feb, [facility] [place] [facility] [address] [id number] [place] 4631 Feb, [facility] [place] [facility] [address] [id number] [place] [address]- 8582 Feb, [facility] [place] [facility] [address] [id number] [place] [address]- 0024 Jan, [facility] [place] [facility] [address] [id number] [place] [address]- 4897 Jan, [facility] [place] [facility] [address] [id number] [place] [address]- 2114 Jan, [facility] [place] [facility] [address] [id number] [place] [address]- 2915 Jan, [facility] [place] [facility] [address] [id number] [place] [address]- 3398 Jan, [facility] [place] [facility] [address] [id number] [place] [address]- 8357 Jan, [facility] [place] [facility] [address] [id number] [place] [address]- 9241 Jan, [facility] [place] [facility] [address] [id number], [place] [address]- 3765 Jan, [facility] [place] [facility] [address] [id number], [place] [address]- 0321 Jan, [facility] [place] [facility] [address] [id number] [place] [address]- 4760 Jan, [facility] [place] [facility] [address] [id number], [place] [address]- 0252 Jan, [facility] [place] [facility] [address] [id number] [place] [address]- 5660 Jan, [facility] [place] [facility] [address] [id number] [place] [address]- 4496 17 Jan, 2013 [facility] [place] [facility] [address] [id number] [place] [address]- 8432 17 Jan, 2014 [facility] [place] [facility] [address] [id number] [place] [address]- 3690 15 Jan, 2014 [facility] [place] [facility] [address] [id number] [place] [address]- 1066 15 Jan, 2014 [facility] [place] [facility] [address] [id number] [place] [address]- 4312 14 Jan, 2014 [facility] [place] [facility] [address] [id number] [place] [address]- 3560 14 Jan, 2014 [facility] [place] [facility] [address] [id number] [place] [address]- 6132 13 Jan, 2014 [facility] [place] [facility] [address] [id number] [place] [address]- 2765 13 Jan, 2014 [facility] [place] [facility] [address] [id number] [place] [address]- 6122 13 Jan, 2014 [facility] [place] [facility] [address] [id number] [place] [address]- 9542 13 Jan, 2014 [facility] [place] [facility] [address] [id number] [place] [address]- 8681 10 Jan, 2014 [facility] [place] [facility] [address] [id number] [place] [address]- 4837 02 Jan, 2014 [facility] [place] [facility] [address] [id number] [place] [address]- 5719 Jan, [facility] [place] [facility] [address] [id number] [place] [address]- 6996 Dec, [facility] [place] [facility] [address] [id number] [place] [address]- 1608 Dec, [facility] [place] [facility] [address] [id number] [place] [address]- 7654 Dec, [facility] [place] [facility] [address] [id number] [place] [address]- 0810 23 Sep, 2013 [facility] [place] [facility] [address] [id number] [place] [address] 19 Sep, 2013 [facility] [place] [facility] [address] [id number] [place] [address] 19 Sep, 2013 [facility] [place] [facility] [address] [id number] [place] [address] 2546 17 Sep, 2013 [facility] [place] [facility] [address] [id number] [place] [address] 17 Sep, 2013 [facility] [place] [facility] [address] [id number] [place] [address] 09 Sep, 2013 [facility] [place] [facility] [address] [id number] [place] [address]- [address]75 09 Sep, 2013 [facility] [place] [facility] [address] [id number] [place] [address] 08 Sep, 2013 [facility] [place] [facility] [address] [id number] [place] [address]- 9489 08 Sep, 2013 [facility] [place] [facility] [address] [id number] [place] [address]- 3706 04 Sep, 2013 [facility] [place] [facility] [address] [id number] [address] 1580 04 Sep, 2013 [facility] [place] [facility] [address] [id number], [place] [address]30 02 Sep, 2013 [facility] [place] [facility] [address] [id number] [place] [address] 2546 02 Sep, 2013 [facility] [place] [facility] [address] [id number] [place] [address]- 2542 02 Sep, 2013 [facility] [place] [facility] [address] [id number], [place] [address] 9[address] 02 Sep, 2013 [facility] [place] [facility] [address] [id number], [place] [address] 39[address] Nov, [facility] [place] [facility] [address] [id number] [place] [address] Nov, [facility] [place] [facility] [address] [id number] [place] [address]396 Nov, [facility] [place] [facility] [address] [id number] [place] [address] Nov, [facility] [place] [facility] [address] [id number] [place] [address]88 Nov, [facility] [place] [facility] [address] [id number] [place] [address] 7419 Nov, [facility] [place] [facility] [address] [id number] [place] [address]- 9606 Nov, [facility] [place] [facility] [address] [id number] [place] [address]- 1180 Nov, [facility] [place] [facility] [address] [id number] [place] [address]- 5332 Nov, [facility] [place] [facility] [address] [id number] [place] [address] 6192 Nov, [facility] [place] [facility] [address] [id number] [place] [address] 7533 Nov, [facility] [place] [facility] [address] [id number] [place] [address] 2363 Nov, [facility] [place] [facility] [address] [id number] [place] [address] 1574 Oct, [facility] [place] [facility] [address] [id number] [place] [address] 2607 Oct, [facility] [place] [facility] [address] [id number] [place] [address] 0239 Oct, [facility] [place] [facility] [address] [id number] [place] [address]- 4750 Oct, [facility] [place] [facility] [address] [id number] [place] [address]- [address]185 Oct, [facility] [place] [facility] [address] [id number] [place] [address] 3943 Oct, [facility] [place] [facility] [address] [id number] [place] [address] 3728 Oct, [facility] [place] [facility] [address] [id number] [place] [address] 5787 Oct, [facility] [place] [facility] [address] [id number] [place] [address]78 Oct, [facility] [place] [facility] [address] [id number] [place] [address]- 5960 Oct, [facility] [place] [facility] [address] [id number] [place] [address] 3939 Oct, [facility] [place] [facility] [address] [id number] [place] [address] 5959 Oct, [facility] [place] [facility] [address] [id number] [place] [address]- 2011 Oct, [facility] [place] [facility] [address] [id number] [place] [address] 9149 Oct, [facility] [place] [facility] [address] [id number] [place] [address]- 6780 Oct, [facility] [place] [facility] [address] [id number] [place] [address]- [address]387 Oct, [facility] [place] [facility] [address] [id number] [place] [address]- 1896 Oct, [facility] [place] [facility] [address] [id number] [place] [address]- 6461 Sep, [facility] [place] [facility] [address] [id number] [place] [address]- 9142 Sep, [facility] [place] [facility] [address] [id number] [place] [address]- 8170 Sep, [facility] [place] [facility] [address] [id number] [place] [address]- 2231 Sep, [facility] [place] [facility] [address] [id number] [place] [address]- 4603 18 Sep, 2013 [facility] [place] [facility] [address] [id number] [place] [address]- 8655 18 Sep, 2013 [facility] [place] [facility] [address] [id number] [place] [address]- 4843 Sep, [facility] [place] [facility] [address] [id number] [place] [address]- 5252 17 Sep, 2013 [facility] [place] [facility] [address] [id number] [place] [address]- 2931 Sep, [facility] [place] [facility] [address] [id number] [place] [address]- 0051 Sep, [facility] [place] [facility] [address] [id number] [place] [address]- 1029 Sep, [facility] [place] [facility] [address] [id number] [place] [address]- 7114 Sep, [facility] [place] [facility] [address] [id number] [place] [address]- 2588 Sep, [facility] [place] [facility] [address] [id number], [place] [address]- [address]602 Sep, [facility] [place] [facility] [address] [id number], [place] [address] Sep, [facility] [place] [facility] [address] [id number] [place] [address]- 2191 Sep, [facility] [place] [facility] [address] [id number] [place] [address]- 7023 07 Sep, 2013 [facility] [place] [facility] [address] [id number] [place] [address]- 2891 07 Sep, 2013 [facility] [place] [facility] [address] [id number] [place] [address]- 6616 05 Sep, 2013 [facility] [place] [facility] [address] [id number] [place] [address]- 0670 Sep, [facility] [place] [facility] [address] [id number] [place] [address]- 1038 Sep, [facility] [place] [facility] [address] [id number] [place] [address]- 3793 Sep, [facility] [place] [facility] [address] [id number] [place] [address]- 2712 August, [facility] [place] [facility] [address] [id number] [place] [address]- 6370 August, [facility] [place] [facility] [address] [id number] [place] [address] August, [facility] [place] [facility] [address] [id number] [place] [address] August, [facility] [place] [facility] [address] [id number] [place] [address] August, [facility] [place] [facility] [address] [id number] [place] [address] 1520 August, [facility] [place] [facility] [address] [id number] [place] [address] 4189 August, [facility] [place] [facility] [address] [id number] [place] [address] 6677 August, [facility] [place] [facility] [address] [id number] [place] [address] 287[address] August, [facility] [place] [facility] [address] [id number] [place] [address] 0762 August, [facility] [place] [facility] [address] [id number] [place] [address] 1972 August, [facility] [place] [facility] [address] [id number] [place] [address] 33[address] Jul, [facility] [place] [facility] [address] [id number] [place] [address]- 8038 28 Jul, 2013 [facility] [place] [facility] [address] [id number] [place] [address]- 1285 Jul, [facility] [place] [facility] [address] [id number] [place] [address]- 3603 Jul, [facility] [place] [facility] [address] [id number] [place] [address] 8140 Jul, [facility] [place] [facility] [address] [id number] [place] [address] 6090 Jul, [facility] [place] [facility] [address] [id number] [place] [address]- 8757 Jul, [facility] [place] [facility] [address] [id number] [place] [address]- 0608 Jul, [facility] [place] [facility] [address] [id number] [place] [address]- 1324 Jul, [facility] [place] [facility] [address] [id number] [place] [address]- 2376 18 Jul, 2013 [facility] [place] [facility] [address] [id number] [place] [address]- 4238 16 Jul, 2013 [facility] [place] [facility] [address] [id number] [place] [address]- 9171 14 Jul, 2013 [facility] [place] [facility] [address] [id number] [place] [address]- 4257 14 Jul, 2013 [facility] [place] [facility] [address] [id number] [place] [address]- 7293 11 Jul, 2013 [facility] [place] [facility] [address] [id number] [place] [address]- 2939 11 Jul, 2013 [facility] [place] [facility] [address] [id number] [place] [address]- 7947 10 Jul, 2013 [facility] [place] [facility] [address] [id number] [place] [address]- 2305 Jul, [facility] [place] [facility] [address] [id number] [place] [address]- 8769 Jul, [facility] [place] [facility] [address] [id number] [place] [address] Jul, [facility] [place] [facility] [address] [id number] [place] [address]- 3508 Jul, [facility] [place] [facility] [address] [id number] [place] [address]- 9597 Jul, [facility] [place] [facility] [address] [id number] [place] [address]- 8597 Jul, [facility] [place] [facility] [address] [id number] [place] [address]- 8644 Jul, [facility] [place] [facility] [address] [id number] [place] [address]- 7574 Jun, [facility] [place] [facility] [address] [id number] [place] [address]- 2039 Jun, [facility] [place] [facility] [address] [id number] [place] [address]- 4423 Jun, [facility] [place] [facility] [address] [id number] [place] [address]- 3868 Jun, [facility] [place] [facility] [address] [id number] [place] [address]- 0175 Jun, [facility] [place] [facility] [address] [id number] [place] [address]- 1389 Jun, [facility] [place] [facility] [address] [id number] [place] [address]- 4811 Jun, [facility] [place] [facility] [address] [id number] [place] [address]- 6126 Jun, [facility] [place] [facility] [address] [id number] [place] [address]- 1806 Jun, [facility] [place] [facility] [address] [id number] [place] [address]- 9683 18 Jun, 2013 [facility] [address] [id number] [place] [address]- 4940 Jun, [facility] [place] [facility] [address] [id number] [place] [address]- 4296 Jun, [facility] [address] [id number] [place] [address]- 7066 May, [facility] [place] [facility] [address] [id number] [place] [address]- 5136 May, [facility] [place] [facility] [address] [id number] [place] [address]- 8775 Apr, [facility] [place] [facility] [address] [id number] [place] [address]- 0692 Apr, [facility] [place] [facility] [address] [id number] [place] [address]- 0370 Apr, [facility] [address] [id number] [place] [address]- 0424 Apr, [facility] [place] [facility] [address] [id number] [place] [address] 1936 Apr, [facility] [address] [id number] [place] [address]- 3072 Apr, [facility] [place] [facility] [address] [id number] [place] [address]- 5709 Apr, [facility] [place] [facility] [address] [id number] [place] [address]- 4312 Apr, [facility] [place] [facility] [address] [id number] [place] [address]- 6574 Apr, [facility] [place] [facility] [address] [id number] [place] [address]- 9596 Apr, [facility] [place] [facility] [address] [id number] [place] [address]- 5477 Apr, [facility] [place] [facility] [address] [id number] [place] [address]- 0800 Mar, [facility] [place] [facility] [address] [id number] [place] [address]- 6401 Mar, [facility] [place] [facility] [address] [id number] [place] [address]- 3741 Mar, [facility] [place] [facility] [address] [id number] [place] [address]- 6925 Mar, [facility] [place] [facility] [address] [id number] [place] [address]- 4471 Feb, [facility] [place] [facility] [address] [id number] [place] [address]- 9802 Feb, [facility] [place] [facility] [address] [id number] [place] [address]- 7493 Feb, [facility] [place] [facility] [address] [id number] [place] [address]- 4001 Feb, [facility] [place] [facility] [address] [id number] [place] [address]- 5654 Feb, [facility] [place] [facility] [address] [id number], [place] [address]- 5455 Feb, [facility] [place] [facility] [address] [id number], [place] [address]- 6496 Feb, [facility] [place] [facility] [address] [id number], [place] [address]- 0493 Feb, [facility] [place] [facility] [address] [id number] [place] [address]- 1095 Feb, [facility] [place] [facility] [address] [id number], [place] [address]- 9412 Feb, [facility] [place] [facility] [address] [id number], [place] [address]- 8053 Feb, [facility] [place] [facility] [address] [id number] [place] [address]- 3647 Jan, 2012 [facility] [place] [facility] [address] [id number] [place] [address]- 0149 25 Jan, 2012 [facility] [place] [facility] [address] [id number], [place] [address]- 6954 Jan, 2012 [facility] [place] [facility] [address] [id number] [place] [address]- 1254 11 Jan, 2012 [facility] [place] [facility] [address] [id number] [place] [address]- 7174 10 Jan, 2012 [facility] [place] [facility] [address] [id number] [place] [address]- 8751 10 Jan, 2012 [facility] [place] [facility] [address] [id number] [place] [address]- 9708 03 Jan, 2013 [facility] [place] [facility] [address] [id number], [place] [address]- 1879 02 Jan, 2012 [facility] [place] [facility] [address] [id number], [place] [address]- 3213 30 Sep, 2012 [facility] [place] [facility] [address] [id number] [place] [address]- 3736 25 Sep, 2012 [facility] [place] [facility] [address] [id number] [place] [address]- 6187 18 Sep, 2012 [facility] [place] [facility] [address] [id number] [place] [address] 2549 17 Sep, 2012 [facility] [place] [facility] [address] [id number], [place] [address]- 2545 17 Sep, 2012 [facility] [place] [facility] [address] [id number][place] [address]- 6155 16 Sep, 2012 [facility] [place] [facility] [address] [id number], [place] [address]- 2541 13 Sep, 2012 [facility] [place] [facility] [address] [id number], [place] [address]- 5318 11 Sep, 2012 [facility] [place] [facility] [address] [id number] [place] [address]- 8743 05 Dec, 2012 [facility] [place] [facility] [address] [id number] [place] [address]- 3960 Dec, [facility] [place] [facility] [address] [id number] [place] [address]- 9373 Nov, [facility] [place] [facility] [address] [id number] [place] [address]- 1218 Nov, [facility] [place] [facility] [address] [id number] [place] [address]- 6993 Nov, [facility] [place] [facility] [address] [id number] [place] [address]- 1442 Nov, [facility] [place] [facility] [address] [id number] [place] [address]- 8440 Nov, [facility] [place] [facility] [address] [id number] [place] [address]- 7131 Nov, [facility] [place] [facility] [address] [id number] [place] [address]- 4216 Nov, [facility] [place] [facility] [address] [id number] [place] [address]- 5098 Oct, [facility] [place] [facility] [address] [id number] [place] [address]- 1756 Oct, [facility] [place] [facility] [address] [id number] [place] [address]- 2969 Oct, [facility] [place] [facility] [address] [id number] [place] [address]- 2018 Oct, [facility] [place] [facility] [address] [id number] [place] [address]- 3189 15 Oct, 2012 [facility] [place] [facility] [address] [id number] [place] [address] 2542 Oct, [facility] [place] [facility] [address] [id number] [place] [address]- 0208 Sep, [facility] [address] [id number] [place] [address]- 3640 28 Sep, 2012 [facility] [place] [facility] [address] [id number] [place] [address]- 0492 27 Sep, 2012 [facility] [place] [facility] [address] [id number] [place] [address]- 2642 14 Sep, 2012 [facility] [place] [facility] [address] [id number] [place] [address]- 0449 13 Sep, 2012 [facility] [place] [facility] [address] [id number] [place] [address]- 6254 10 Sep, 2012 [facility] [place] [facility] [address] [id number] [place] [address]- 1221 07 Sep, 2012 [facility] [place] [facility] [address] [id number] [place] [address]- 8167 Sep, [facility] [place] [facility] [address] [id number] [place] [address]- 6801 05 Sep, 2012 [facility] [place] [facility] [address] [id number] [place] [address]- 5246 August, [facility] [place] [facility] [address] [id number] [place] [address]- 7424 August, [facility] [place] [facility] [address] [id number] [place] [address]- 9025 August, [facility] [place] [facility] [address] [id number], [place] [address]- 2807 August, [facility] [place] [facility] [address] [id number] [place] [address]- 8155 August, [facility] [place] [facility] [address] [id number] [place] [address]- 0776 August, [facility] [place] [facility] [address] [id number] [place] [address]- 3229 August, [facility] [place] [facility] [address] [id number] [place] [address]- 8247 August, [facility] [address] [id number] [place] [address]- 9603 Jul, [facility] [place] [facility] [address] [facility] [place] [id number] [place] [address]- 4783 Jul, [facility] [address] [place] [id number] Jul [facility] [address] [id number] [place] [address]- 8197 Jun, [facility] [address] [id number] [place] [address]- 3556 Jun, [facility] [address] [id number] [place] [address]- 0900 Jun, [facility] [address] [facility] [place] [id number] [place] [address]- 3859 Jun, [facility] [address] [id number] [place] [address]- 7799 Jun, [facility] [address] [id number] [place] [address]- 0113 Jun, [facility] [address] [facility] [place] [id number] [place] [address]- 4555 May, [facility] [address] [id number] [place] [address]- 7858 May, [facility] [address] [id number] [place] [address] 254 May, [facility] [address] [id number] [place] [address]- 1645 May, [facility] [address] [id number] [place] [address]- 6518 May, [facility] [address] [facility] [place] [id number] [place] [address]- 1187 Apr, [facility] [address] [id number] [place] [address]- 6768 15 Apr, 2012 [facility] [address] [id number] [place] [address]- 3776 Apr, [facility] [place] [facility] [address] [id number] [place] [address]- 6106 Apr, [facility] [address] [id number] [place] [address]- 4567 Apr, [facility] [address] [id number] [place] [address]- 0161 Apr, [facility] [place] [facility] [address] [id number] [place] [address]- 2130 Mar, [facility] [address] [id number] [place] [address]- 1163 Mar, [facility] [address] [id number] [place] [address]- 2062 Mar, [facility] [address] [id number] [place] [address]- 4418 Mar, [facility] [address] [id number] [place] [address]- 6711 Mar, [facility] [address] [id number] [place] [address]- 7023 18 Mar, 2012 [facility] [place] [facility] [address] [id number] [place] [address]- 9735 18 Mar, 2012 [facility] [place] [facility] [address] [id number] [place] [address]- 8550 10 Mar, 2012 [facility] [place] [facility] [address] [id number] [place] [address]- 2546 10 Mar, 2012 [facility] [place] [facility] [address] [id number] [place] [address]- 2579 05 Mar, 2012 [facility] [place] [facility] [address] [id number] [place] [address]- 8505 Mar, [facility] [place] [facility] [address] [id number] [place] [address]- 8727 Feb, [facility] [place] [facility] [address] [id number] [place] [address]- 7883 Feb, [facility] [place] [facility] [address] [facility] [place] [id number] [place] [address]- 2234 Feb, [facility] [place] [facility] [address] [id number] [place] [address]- 9737 Feb, [facility] [place] [facility] [address] [id number] [place] [address]- 5929 Feb, [facility] [place] [facility] [address] [id number] [place] [address]- 9157 Feb, [facility] [place] [facility] [address] [id number] [place] [address]- 3368 Feb, [facility] [place] [facility] [address] [id number], [place] [address]- 8185 Feb, [facility] [place] [facility] [address] [id number], [place] [address]- 1904 Feb, [facility] [place] [facility] [address] [facility] [place] [id number], [place] [address]- 3504 Feb, [facility] [place] [facility] [address] [id number], [place] [address]- 5621 Feb, [facility] [place] [facility] [address] [id number], [place] [address]- 8637 Jan, [facility] [place] [facility] [address] [id number] [place] [address]- 3887 Jan, [facility] [place] [facility] [address] [facility] [place] [id number], [place] [address]- 1690 Jan, [facility] [place] [facility] [address] [id number], [place] [address]- 7475 Jan, [facility] [place] [facility] [address] [id number] [place] [address]- 2605 Jan, [facility] [address] [id number] [place] [address]- 8228 Jan, [facility] [place] [facility] [address] [id number] [place] [address]- 1185 Jan, [facility] [address] [id number] [place] [address]- 7940 24 Dec, 2011 [facility] [place] [facility] [address] [id number] [place] [address]- 4529 17 Dec, 2011 [facility] [place] [facility] [address] [id number] [place] [address]- 8647 13 Dec, 2011 [facility] [place] [facility] [address] [id number] [place] [address]- 9551 Dec, [facility] [address] [id number] [place] [address]- 3670 Nov, [facility] [address] [id number] [place] [address]- 4046 Nov, [facility] [place] [facility] [address] [id number] [place] [address]- 8517 Nov, [facility] [address] [id number] [place] [address]- 4567 15 Nov, 2011 [facility] [place] [facility] [address] [id number] [place] [address]- 7945 14 Nov, 2011 [facility] [place] [facility] [address] [id number] [place] [address]- 4582 13 Nov, 2011 [facility] [place] [facility] [address] [id number] [place] [address]- 4449 Nov, [facility] [place] [facility] [address] [id number] [place] [address]- 0362 Nov, [facility] [place] [facility] [address] [id number] [place] [address]- 0237 Nov, [facility] [place] [facility] [address] [id number] [place] [address]- 1403 Nov, [facility] [place] [facility] [address] [id number] [place] [address]- 8624 Nov, [facility] [place] [facility] [address] [id number] [place] [address] Nov, [facility] [place] [facility] [address] [id number] [place] [address] Nov, [facility] [place] [facility] [address] [id number] [place] [address] Oct, [facility] [place] [facility] [address] [id number] [place] [address] Oct, [facility] [place] [facility] [address] [id number] [place] [address] Oct, [facility] [place] [facility] [address] [id number] [place] [address] Oct, [facility] [place] [facility] [address] [id number] [place] [address] Oct, [facility] [place] [facility] [address] [id number] [place] [address] Oct, [facility] [place] [facility] [address] [id number] [place] [address] Oct, [facility] [place] [facility] [address] [id number] [place] [address] Oct, [facility] [place] [facility] [address] [id number] [place] [address] Oct, [facility] [place] [facility] [address] [id number] [place] [address] Sep, [facility] [place] [facility] [address] [id number] [place] [address] Sep, [facility] [place] [facility] [address] [id number] [place] [address] Sep, [facility] [place] [facility] [address] [id number] [place] [address] Sep, [facility] [place] [facility] [address] [id number] [place] [address] Sep, [facility] [place] [facility] [address] [id number] [place] [address] Sep, [facility] [place] [facility] [address] [id number] [place] [address] Sep, [facility] [place] [facility] [address] [id number] [place] [address] Sep, [facility] [place] [facility] [address] [id number] [place] [address] August, [facility] [place] [facility] [address] [id number] [place] [address] August, [facility] [place] [facility] [address] [id number] [place] [address] August, [facility] [place] [facility] [address] [id number] [place] [address] August, [facility] [place] [facility] [address] [id number] [place] [address] August, [facility] [place] [facility] [address] [id number] [place] [address] August, [facility] [place] [facility] [address] [id number] [place] [address] August, [facility] [place] [facility] [address] [id number] [place] [address] August, [facility] [place] [facility] [address] [id number] [place] [address] August, [facility] [place] [facility] [address] [id number] [place] [address] August, [facility] [place] [facility] [address] [id number] [place] [address] August, [facility] [address] [facility] [place] [id number] [place] [address] August, [facility] [address] [facility] [place] [id number] [place] [address] Oct, IMMUNIZATIONS No Known Immunizations SOCIAL HISTORY Never Assessed REASON FOR VISIT Breast exam., Pt states she would like to speak to provider about personal issues regarding appetite as well as assisted living[facility] PLAN OF CARE Activity Details Follow Up 4 Weeks Reason:Diarrhea VITAL SIGNS Height 63 in 2017-12-10 Weight 404.2 lbs 2017-12-10 Temperature 98.9 degrees Fahrenheit 2017-12-10 Heart Rate 106 bpm 2017-12-10 Respiratory Rate 22 2017-12-10 BMI 71.59 kg/m2 2017-12-10 Blood pressure systolic 140 mmHg 2017-12-10 Blood pressure diastolic 80 mmHg 2017-12-10 MEDICATIONS Medication Instructions Dosage Frequency Start Date End Date Duration Status Nexium 40 mg Orally Once a day 1 capsule 24h 30 Not-Taking Zofran 4 MG Orally every 4 hrs 1 tablet as needed 4h 3 Active Zantac 150 MG Orally Once a day 1 tablet at bedtime 24h Active Potassium Chloride Eugenia ER 10 MEQ Orally Once a day 1 tablet with food 24h 90 days Active immodium Active Tylenol 325 MG Orally every 6 hrs 2 tablets as needed 6h Oct, Active Loperamide HCl 2 MG Orally 2 times a day 1 capsule as needed 12h Oct, 03 days Active Test strips as directed Oct, Active Cetirizine HCl 10 mg Orally Once a day 1 tablet 24h 90 days Active Mirtazapine 45 MG Orally Once a day 1 tablet at bedtime 24h 30 Active Montelukast Sodium 10 mg Orally Once a day 1 tablet in the evening 24h 90 days Active OneTouch Ultra Test - TEST FOUR TIMES DAILY 25 Active Lyrica 150 MG Orally 2 times a day 1 capsule 12h 28 days Active Glucometer glucometer as directed Oct, Active MetFORMIN HCl ER 500 mg Orally Once a day 2 tablet with evening meal 24h Nov, 30 day(s) Active Lasix 40 mg Orally Once a day 1 tablet 24h 90 days Active Lancets - as directed Nov, Active Sucralfate 1 GM Orally at bedtime 2 tablet Active Rosuvastatin Calcium 20 mg Orally Once a day 1 tablet 24h Oct, 90 days Active RESULTS No Results PROCEDURES [...] Surgical History bladder surgery Hospitalization History [facility] for right groin pain 05/2011 Hospitalization History [facility] for wound on buttocks 08/2012 Hospitalization History [facility], hypoxia secondary to pneumonia 12/02-12/09 Hospitalization History Pneumonia, elevated CO2 on Bipap was in ICU 08/2013 Hospitalization History Hypoxia, Exacerbation COPD, Chest pain 09/05/15 Hospitalization History suicidal ideations-[place] 12/28 Hospitalization History hypoxia--[facility] 02/13/2016 Hospitalization History shortness of breath at june 2016 Hospitalization History Shortness of breath at august 2016 Hospitalization History SOB, chest pain at 12/2016
--- OUTSIDE RECORDS SUMMARY | 2018-02-11 12:42 | XMS REPORT ---
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 [address] [id number] [place] [address] 69094- 4209 Jun, Unspecified mood [affective] disorder [address] [place] [address] [id number] [place] [address] 03091- 5269 18 Jun, 2015 Unspecified mood [affective] disorder [address] [place] [address] [id number] [place] [address] 47478- 8375 15 Jun, 2015 Unspecified mood [affective] disorder [id number] [place] [address] 07961- 5459 14 Jun, 2015 [facility] [id number] [place] [address] 79387- 7096 09 Jun, 2015 Type 2 diabetes mellitus with hyperglycemia E11.65 ; Oxygen dependent Z99.81 ; Folliculitis L73.9 ; Dysuria R30.0 ; Encounter for contraceptive management Z30.9 and Dog bite W54.0XXA [facility] [id number] [place] [address] 19742- 4911 Jun, Unspecified mood [affective] disorder F39 [facility] [id number] [place] [address] 38965- 2527 Jun, Type 2 diabetes mellitus with hyperglycemia E11.65 [facility] [id number] [place] [address] 10518- 5775 May, Unspecified mood [affective] disorder F39 [facility] [id number] [place] [address] 20412- 3761 May, [facility] [id number] [place] [address] 80624- 8787 May, [facility] [id number] [place] [address] 29086- 6312 May, [facility] [id number] [place] [address] 61808- 4776 Apr, [facility] [id number] [place] [address] 44709- 5054 Apr, Unspecified mood [affective] disorder F39 [facility] [id number] [place] [address] 37996- 4791 Apr, [facility] [id number] [place] [address] 72234- 7792 Apr, [facility] [id number] [place] [address] 01746- 5226 Apr, [facility] [id number] [place] [address] 12609- 2538 Apr, Dysuria R30.0 and Well woman exam (no gynecological exam) Z00.00 [facility] [id number] [place] [address] 22481- 5349 Mar, [facility] [id number] [place] [address] 29377- 2487 Mar, [facility] [id number] [id number] Mar, Dental examination Z01.20 [facility] [address], [place] [address]- 4395 Mar, Chronic diarrhea K52.9 ; Intractable vomiting with nausea, vomiting of unspecified type R11.2 ; Cellulitis, unspecified cellulitis site L03.90 ; Type 2 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 and Postinflammatory hyperpigmentation L81.0 [facility] [id number] [place] [address] 18395- 1887 Mar, Unspecified mood [affective] disorder F39 [facility] [address], [place] [address]- 6381 Mar, Unspecified mood [affective] disorder F39 [facility] [id number] [place] [address] 02467- 9193 Mar, [facility] [address], [place] [address]- 5329 Mar, [facility] [id number] [place] [address] 25250- 6836 Mar, [facility] [address] [id number], [place] [address]- 4405 Mar, [facility] [address], [place] [address]- 2519 Mar, [facility] [address], [place] [address]- 1339 Mar, [facility] [id number] [place] [address] 18698- 1713 Feb, Unspecified mood [affective] disorder F39 [facility] [address]65[address], [place] [address]- 3747 Feb, [facility] [address] [id number], [place] [address]- 6183 Feb, [facility] [id number] [place] [address] 74818- 9662 Jan, Unspecified mood [affective] disorder F39 [facility] [address] [id number] [id number] Jan, Encounter for dental examination Z01.20 [facility] [id number] [place] [address] 49199- 3488 Jan, [facility] [id number] [place] [address] 62323- 5971 Jan, [facility] [id number] [place] [address] 76794- 5530 Jan, [facility] [id number] [place] [address] 37425- 6836 Jan, [facility] [id number] [place] [address] 74856- 7219 Jan, [facility] [id number] [place] [address] 60006- 1713 Jan, Abdominal abscess K65.1 and Dental caries K02.9 [facility] [id number] [place] [address] 22286- 2140 Jan, [facility] [id number] [place] [address] 98324- 4803 Dec, Diabetes with neurological manifestations, type II or unspecified type, not stated as uncontrolled 250.60 ; Essential hypertension, benign 401.1 ; Concussion 850.9 and Skin texture changes 782.8 [facility] [id number] [place] [address] 66774- 3481 Dec, [facility] [id number] [place] [address] 99842- 2677 Dec, [facility] [id number] [place] [address] 40962- 0956 Dec, 2014 [facility] [address] [place] [address] 2546 21 Dec, 2014 [facility] [id number] [place] [address] 98073 2546 17 Dec, 2014 Affective disorder 296.90 [facility] [address] [place] [address] 2546 14 Sep, 2014 [facility] [id number] [place] [address] 58842 2546 10 Dec, 2014 Affective disorder 296.90 [facility] [id number] [place] [address] 20885 2546 04 Sep, 2014 [facility] [address], [place] [address] 2546 04 Dec, 2014 [facility] [id number] [place] [address] 36001 2546 04 Dec, 2014 [facility] [address], [place] [address] 2546 03 Dec, 2014 [facility] [id number] [place] [address] 81428 2546 Nov, Affective disorder 296.90 [facility] [address], [place] [address] 2546 Nov, 2014 [facility] [address], [place] [address] 2546 Nov, 2014 Affective disorder 296.90 [facility] [id number], [place] [address] 2546 Nov, Diarrhea 787.91 [facility] [id number], [place] [address] 2546 Nov, [facility] [id number], [place] [address] 2546 Nov, Diarrhea 787.91 [facility] [id number] [place] [address] 37530- 2602 Nov, Diarrhea 787.91 and Hyperlipidemia 272.4 [facility] [id number] [place] [address] 67043 2546 Nov, Diarrhea 787.91 [facility] [id number] [place] [address] 57231 2546 Nov, Affective disorder 296.90 [facility] [id number] [place] [address] 93377 2546 Nov, Affective disorder 296.90 [facility] [id number] [place] [address] 14459- 6515 Nov, Affective disorder 296.90 [facility] [id number] [place] [address] 06584- 9173 Nov, [facility] [id number] [place] [address] 91935- 8980 Nov, [facility] [id number] [place] [address] 81210- 1207 Nov, [facility] [id number] [place] [address] 18418- 1547 Nov, Episodic mood disorder 296.90 [facility] [id number] [place] [address] 82124- 0107 Nov, [facility] [id number] [place] [address] 07530 2548 Nov, [facility] [id number] [place] [address] 45902- 2541 Nov, [facility] [id number] [place] [address] 57847- 5827 Nov, [facility] [id number] [place] [address] 14542- 2542 Nov, [facility] [id number] [place] [address] 75767- 2546 Nov, Lymphedema 457.1 ; Hyperlipidemia 272.4 ; Essential hypertension, benign 401.1 and Numbness of toes 782.0 [facility] [address], [place] [address]- 1053 Nov, Episodic mood disorder 296.90 [facility] [id number] [place] [address]- 8781 Oct, [facility] [address] [id number], [place] [address]- 8002 Oct, [facility] [address] [id number], [place] [address]- 6925 Oct, [facility] [id number], [place] [address]- 8779 Oct, [facility] [id number], [place] [address]- 7962 Oct, [facility] [id number], [place] [address]- 9644 Oct, [facility] [address] [place] [address]- 6762 Oct, [facility] [id number], [place] [address]- 2617 Oct, [facility] [id number], [place] [address]- 3943 Oct, Episodic mood disorder 296.90 [facility] [id number], [place] [address]- 0422 Sep, [facility] [id number] [place] [address]- 3236 Sep, [facility] [id number], [place] [address]- 6129 Sep, [facility] [id number], [place] [address]- 6800 Sep, [facility] [id number], [place] [address]- 7305 Sep, [facility] [id number], [place] [address]- 1306 Sep, Episodic mood disorder 296.90 [facility] [id number], [place] [address]- 3820 19 Sep, 2014 Unspecified episodic mood disorder 296.90 [facility] [address], [place] [address]- 3024 18 Sep, 2014 [facility] [address], [place] [address]- 4475 18 Sep, 2014 [facility] [id number], [place] [address]- 5314 16 Sep, 2014 Episodic mood disorder 296.90 [facility] [id number], [place] [address]- 1940 15 Sep, 2014 [facility] [address], [place] [address]- 3238 15 Sep, 2014 [facility] [id number], [place] [address]- 3257 Sep, [facility] [id number], [place] [address]- 1821 09 Sep, 2014 Hematemesis 578.0 and Vomiting 787.03 [facility] [id number], [place] [address]- 3274 09 Sep, 2014 Episodic mood disorder 296.90 [facility] [id number], [place] [address]- 8941 08 Sep, 2014 [facility] [id number], [place] [address]- 3271 Sep, [facility] [address] [id number], [place] [address]- 2586 05 Sep, 2014 Diabetes mellitus without mention of complication, type II or unspecified type, not stated as uncontrolled 250.00 and Other chronic pain 338.29 [facility] [id number], [place] [address]- 3848 Sep, Episodic mood disorder 296.90 [facility] [id number], [place] [address]- 6820 Sep, [facility] [id number], [place] [address] Sep, Episodic mood disorder 296.90 [facility] [id number], [place] [address] Sep, [facility] [id number] [place] [address] August, [facility] [id number] [address] August, [facility] [id number] [place] [address] August, Episodic mood disorder 296.90 [facility] [id number], [place] [address] August, [facility] [id number] [place] [address] August, Unspecified episodic mood disorder 296.90 [facility] [id number], [place] [address] August, Vomiting 787.03 [facility] [id number], [place] [address] August, [facility] [id number], [place] [address] August, [facility] [id number], [place] [address] August, [facility] [id number] [address] August, [facility] [id number], [place] [address] August, [facility] [place] [facility] [address] [id number] [place] [address] 28 Jul, 2014 [facility] [place] [facility] [address] [id number] [place] [address] 14 Jul, 2014 [facility] [place] [facility] [address] [id number] [place] [address] Jul, [facility] [place] [facility] [address] [id number] [place] [address] 30 Jun, 2014 [facility] [place] [facility] [address] [id number] [place] [address] 30 Jun, 2014 [facility] [place] [facility] [address] [id number] [place] [address] Jun, [facility] [place] [facility] [address] [facility] [id number] [place] [address] Jun, [facility] [place] [facility] [address] [id number] [place] [address] Jun, [facility] [place] [facility] [address] [id number] [place] [address] Jun, [facility] [place] [facility] [address] [facility] [id number] [place] [address] Jun, [facility] [place] [facility] [address] [id number] [place] [address] 30 Jun, 2014 [facility] [place] [facility] [address] [id number] [place] [address] Jun, [facility] [place] [facility] [address] [id number] [place] [address]- [address] Jun, [facility] [place] [facility] [address] [facility] [id number] [place] [address] Jun, [facility] [place] [facility] [address] [facility] [id number] [place] [address] Jun, [facility] [place] [facility] [address] [id number] [place] [address] 26 Jun, 2014 [facility] [place] [facility] [address] [id number] [place] [address] 26 Jun, 2014 [facility] [place] [facility] [address] [id number] [place] [address] 24 Jun, 2014 [facility] [place] [facility] [address] [id number] [place] [address] 23 Jun, 2014 [facility] [place] [facility] [address] [id number] [place] [address] Jun, [facility] [place] [facility] [address] [id number] [place] [address] Jun, [facility] [place] [facility] [address] [id number] [place] [address] Jun, [facility] [place] [facility] [address] [id number] [place] [address]- [address] Jun, [facility] [place] [facility] [address] [id number] [place] [address] 21 Jun, 2014 [facility] [place] [facility] [address] [id number] [place] [address] 20 Jun, 2014 [facility] [place] [facility] [address] [id number] [place] [address] 5266 20 Jun, 2014 [facility] [place] [facility] [address] [id number] [place] [address] 2411 20 Jun, 2014 [facility] [place] [facility] [address] [id number] [place] [address] 1413 20 Jun, 2014 [facility] [place] [facility] [address] [id number] [place] [address]- 0656 19 Jun, 2014 [facility] [place] [facility] [address] [id number] [place] [address]- 1256 19 Jun, 2014 [facility] [place] [facility] [address] [id number] [place] [address]- 2895 18 Jun, 2014 [facility] [place] [facility] [address] [id number] [place] [address]- 7973 18 Jun, 2014 [facility] [place] [facility] [address] [id number] [place] [address]- 2990 17 Jun, 2014 [facility] [place] [facility] [address] [id number] [place] [address]- 7962 17 Jun, 2014 [facility] [place] [facility] [address] [id number] [place] [address]- 3925 16 Jun, 2014 [facility] [place] [facility] [address] [id number] [place] [address]- 8342 16 Jun, 2014 [facility] [place] [facility] [address] [id number] [place] [address]- 9026 16 Jun, 2014 [facility] [place] [facility] [address] [id number] [place] [address]- 5124 16 Jun, 2014 [facility] [place] [facility] [address] [id number] [place] [address]- 7000 16 Jun, 2014 [facility] [place] [facility] [address] [id number] [place] [address]- 1871 16 Jun, 2014 [facility] [place] [facility] [address] [id number] [place] [address]- 8029 13 Jun, 2014 [facility] [place] [facility] [address] [id number] [place] [address]- 3628 13 Jun, 2014 [facility] [place] [facility] [address] [id number], [place] [address]- 4[address] 12 Jun, 2014 [facility] [place] [facility] [address] [id number] [place] [address]- 0861 12 Jun, 2014 [facility] [place] [facility] [address] [id number] [place] [address]- 6761 09 Jun, 2014 [facility] [place] [facility] [address] [id number] [place] [address]- 6238 09 Jun, 2014 [facility] [place] [facility] [address] [id number] [place] [address]- 7228 Jun, 2014 [facility] [place] [facility] [address] [id number] [place] [address]- 7694 Jun, [facility] [place] [facility] [address] [id number] [place] [address]- 4180 Jun, 2014 [facility] [place] [facility] [address] [id number] [place] [address]- 4008 Jun, 2014 [facility] [place] [facility] [address] [id number] [place] [address]- 0742 Jun, 2014 [facility] [place] [facility] [address] [id number] [place] [address]- 9083 Jun, [facility] [place] [facility] [address] [id number] [place] [address]- 6987 Jun, 2014 [facility] [place] [facility] [address] [id number] [place] [address]- 5588 Jun, 2014 [facility] [place] [facility] [address] [id number] [place] [address]- 7746 Jun, [facility] [place] [facility] [address] [id number] [place] [address]- 8206 Jun, [facility] [place] [facility] [address] [id number] [place] [address]- 7235 Jun, [facility] [place] [facility] [address] [id number] [place] [address]- 5224 Jun, [facility] [place] [facility] [address] [id number] [place] [address]- 0212 Jun, [facility] [place] [facility] [address] [id number] [place] [address]- 2139 Jun, [facility] [place] [facility] [address] [id number] [place] [address]- 0688 May, [facility] [place] [facility] [address] [id number] [place] [address]- 3957 May, [facility] [place] [facility] [address] [id number] [place] [address]- 3122 May, 2014 [facility] [place] [facility] [address] [id number] [place] [address]- 6186 May, 2014 [facility] [place] [facility] [address] [facility] [id number] [place] [address]- 2436 May, 2014 [facility] [place] [facility] [address] [facility] [id number] [place] [address]- 2549 May, 2014 [facility] [place] [facility] [address] [id number] [place] [address]- 0557 May, 2014 [facility] [place] [facility] [address] [facility] [id number] [place] [address]- 7281 May, 2014 [facility] [place] [facility] [address] [facility] [id number] [place] [address]- 0808 May, 2014 [facility] [place] [facility] [address] [facility] [id number] [place] [address]- 7519 May, 2014 [facility] [place] [facility] [address] [facility] [id number] [place] [address]- 5910 May, 2014 [facility] [place] [facility] [address] [facility] [id number] [place] [address]- 9752 May, 2014 [facility] [place] [facility] [address] [facility] [id number] [place] [address]- 2913 13 May, 2014 [facility] [place] [facility] [address] [facility] [id number] [place] [address]- 2544 13 May, 2014 [facility] [place] [facility] [address] [facility] [id number] [place] [address]- 0953 11 May, 2014 [facility] [place] [facility] [address] [facility] [id number] [place] [address]- 0656 May, 2014 [facility] [place] [facility] [address] [facility] [id number] [place] [address]- 1928 11 May, 2014 [facility] [place] [facility] [address] [id number] [place] [address]- 9965 May, 2014 [facility] [place] [facility] [address] [id number] [place] [address]- 8448 May, 2014 [facility] [place] [facility] [address] [id number] [place] [address]- 2772 May, 2014 [facility] [place] [facility] [address] [id number] [place] [address]- 1950 May, 2014 [facility] [place] [facility] [address] [id number] [place] [address]- 2361 May, 2014 [facility] [place] [facility] [address] [id number] [place] [address]- 9274 May, 2014 [facility] [place] [facility] [address] [facility] [id number] [place] [address]- 1934 May, 2014 [facility] [place] [facility] [address] [id number] [place] [address]- 4551 May, 2014 [facility] [place] [facility] [address] [id number] [place] [address]- 2851 May, 2014 [facility] [place] [facility] [address] [facility] [id number] [place] [address]- 4001 May, 2014 [facility] [place] [facility] [address] [id number], [place] [address]- 3053 Apr, [facility] [place] [facility] [address] [id number], [place] [address]- 6770 Apr, [facility] [place] [facility] [address] [id number] [place] [address]- 8055 Apr, [facility] [place] [facility] [address] [id number] [place] [address]- 5093 Apr, [facility] [place] [facility] [address] [facility] [id number] [place] [address]- 2102 Apr, [facility] [place] [facility] [address] [id number] [place] [address]- 1019 Apr, [facility] [place] [facility] [address] [id number] [place] [address]- 7804 Apr, [facility] [place] [facility] [address] [id number] [place] [address]- 1802 Apr, [facility] [place] [facility] [address] [id number] [place] [address]- 7255 Apr, [facility] [place] [facility] [address] [id number] [place] [address]- 9766 Apr, [facility] [place] [facility] [address] [id number] [place] [address]- 9898 Apr, [facility] [place] [facility] [address] [id number] [place] [address]- 6972 Apr, [facility] [place] [facility] [address] [id number] [place] [address]- 1915 Apr, [facility] [place] [facility] [address] [id number] [place] [address]- 0867 Apr, [facility] [place] [facility] [address] [id number] [place] [address]- 5942 Apr, [facility] [place] [facility] [address] [id number] [place] [address]- 0981 Apr, [facility] [place] [facility] [address] [id number] [place] [address]- 5988 Apr, [facility] [place] [facility] [address] [id number], [place] [address]- 9325 Apr, [facility] [place] [facility] [address] [id number] [place] [address]- 2321 Apr, [facility] [place] [facility] [address] [id number] [place] [address]- 1267 Apr, [facility] [place] [facility] [address] [id number] [place] [address]- 5301 Mar, [facility] [place] [facility] [address] [id number] [place] [address]- 7135 Mar, [facility] [place] [facility] [address] [id number] [place] [address]- 1126 Mar, [facility] [place] [facility] [address] [id number] [place] [address]- 6222 Mar, [facility] [place] [facility] [address] [id number] [place] [address]- 7106 Mar, [facility] [place] [facility] [address] [id number] [place] [address]- 1022 Mar, [facility] [place] [facility] [address] [id number] [place] [address]- 2383 Mar, [facility] [place] [facility] [address] [id number] [place] [address]- 0003 Mar, [facility] [place] [facility] [address] [id number] [place] [address]- 6211 15 Mar, 2014 [facility] [place] [facility] [address] [id number] [place] [address]- 5517 15 Mar, 2014 [facility] [place] [facility] [address] [id number] [place] [address]- 1376 15 Mar, 2014 [facility] [place] [facility] [address] [id number] [place] [address]- 9248 15 Mar, 2014 [facility] [place] [facility] [address] [id number] [place] [address]- 7357 Mar, [facility] [place] [facility] [address] [id number] [place] [address]- 4822 Mar, [facility] [place] [facility] [address] [id number] [place] [address]- 9338 Mar, [facility] [place] [facility] [address] [id number] [place] 1443 02 Mar, 2014 [facility] [place] [facility] [address] [id number] [place] [address]- 7078 Feb, [facility] [place] [facility] [address] [id number] [place] [address]- 9429 Feb, [facility] [place] [facility] [address] [id number] [place] [address]- 4445 Feb, [facility] [place] [facility] [address] [id number] [place] [address]- 1421 Feb, [facility] [place] [facility] [address] [id number] [place] [address]- 1083 Feb, [facility] [place] [facility] [address] [id number] [place] [address]- 3914 Feb, [facility] [place] [facility] [address] [id number] [place] [address]- 4782 Feb, [facility] [place] [facility] [address] [id number] [place] [address]- 5957 18 Feb, 2014 [facility] [place] [facility] [address] [id number] [place] [address]- 0954 18 Feb, 2014 [facility] [place] [facility] [address] [id number] [place] [address]- 2816 Feb, [facility] [place] [facility] [address] [id number] [place] [address]- 4917 17 Feb, 2014 [facility] [place] [facility] [address] [id number] [place] [address]- 8571 17 Feb, 2014 [facility] [place] [facility] [address] [id number], [place] [address]- 9346 17 Feb, 2014 [facility] [place] [facility] [address] [id number] [place] [address]- 9231 14 Feb, 2014 [facility] [place] [facility] [address] [id number] [place] [address]- 6296 14 Feb, 2014 [facility] [place] [facility] [address] [id number] [place] [address]- 3915 14 Feb, 2014 [facility] [place] [facility] [address] [id number] [place] [address]- 9642 14 Feb, 2014 [facility] [place] [facility] [address] [id number] [place] [address]- 8648 Feb, [facility] [place] [facility] [address] [id number] [place] [address]- 7145 Feb, [facility] [place] [facility] [address] [id number] [place] [address]- 4145 Feb, [facility] [place] [facility] [address] [id number] [place] [address]- 2266 Feb, [facility] [place] [facility] [address] [id number] [place] [address]- 9529 Jan, [facility] [place] [facility] [address] [id number] [place] [address]- 4202 Jan, [facility] [place] [facility] [address] [id number] [place] [address]- 5172 Jan, [facility] [place] [facility] [address] [id number] [place] [address]- 9380 Jan, [facility] [place] [facility] [address] [id number] [place] [address]- 8293 Jan, [facility] [place] [facility] [address] [id number] [place] [address]- 8161 Jan, [facility] [place] [facility] [address] [id number] [place] [address]- 8771 Jan, [facility] [place] [facility] [address] [id number] [place] [address]- 2345 Jan, [facility] [place] [facility] [address] [id number] [place] [address]- 2682 Jan, [facility] [place] [facility] [address] [id number] [place] [address]- 9500 Jan, [facility] [place] [facility] [address] [id number] [place] [address]- 1527 17 Jan, 2014 [facility] [place] [facility] [address] [id number] [place] [address]- 7040 17 Jan, 2013 [facility] [place] [facility] [address] [id number] [place] [address]- 3860 17 Jan, 2013 [facility] [place] [facility] [address] [id number] [place] [address]- 6452 17 Jan, 2013 [facility] [place] [facility] [address] [id number] [place] [address]- 0651 15 Jan, 2013 [facility] [place] [facility] [address] [id number] [place] [address]- 5498 15 Jan, 2014 [facility] [place] [facility] [address] [id number] [place] [address]- 6001 14 Jan, 2014 [facility] [place] [facility] [address] [id number] [place] [address]- 8804 14 Jan, 2014 [facility] [place] [facility] [address] [id number] [place] [address]- 5553 13 Jan, 2014 [facility] [place] [facility] [address] [id number] [place] [address]- 4788 13 Jan, 2014 [facility] [place] [facility] [address] [id number] [place] [address]- 2422 13 Jan, 2014 [facility] [place] [facility] [address] [id number] [place] [address]- 8757 13 Jan, 2014 [facility] [place] [facility] [address] [id number], [place] [address]- 2126 10 Jan, 2014 [facility] [place] [facility] [address] [id number] [place] [address]- 5026 02 Jan, 2014 [facility] [place] [facility] [address] [id number] [place] [address]- 0167 02 Jan, 2014 [facility] [place] [facility] [address] [id number][place] 6527 25 Dec, 2013 [facility] [place] [facility] [address] [id number], [place] [address]- 8963 25 Sep, 2013 [facility] [place] [facility] [address] [id number] [place] [address] 2546 23 Sep, 2013 [facility] [place] [facility] [address] [id number] [place] [address] 2546 23 Sep, 2013 [facility] [place] [facility] [address] [id number] [place] [address] 2546 19 Sep, 2013 [facility] [place] [facility] [address] [id number] [place] [address] 2541 19 Sep, 2013 [facility] [place] [facility] [address] [id number] [place] [address]- 5952 17 Sep, 2013 [facility] [place] [facility] [address] [id number] [place] [address]- 2872 17 Sep, 2013 [facility] [place] [facility] [address] [id number] [place] [address]- 0914 09 Sep, 2013 [facility] [place] [facility] [address] [id number] [place] [address]- 8629 09 Sep, 2013 [facility] [place] [facility] [address] [id number] [place] [address]- 2634 08 Sep, 2013 [facility] [place] [facility] [address] [id number] [place] [address]- 0208 08 Sep, 2013 [facility] [place] [facility] [address] [id number], [place] [address] 2544 04 Sep, 2013 [facility] [place] [facility] [address] [id number], [place] [address]- 2548 04 Sep, 2013 [facility] [place] [facility] [address] [id number] [place] [address] 2547 02 Sep, 2013 [facility] [place] [facility] [address] [id number] [place] [address]- 9752 02 Sep, 2013 [facility] [place] [facility] [address] [id number] [place] [address]- 9377 02 Sep, 2013 [facility] [place] [facility] [address] [id number] [place] [address]- 6223 Dec, [facility] [place] [facility] [address] [id number] [place] [address]- 1514 Nov, [facility] [place] [facility] [address] [id number] [place] [address]- 0763 Nov, [facility] [place] [facility] [address] [id number] [place] [address]- 5461 Nov, [facility] [place] [facility] [address] [id number] [place] [address]- 1861 Nov, [facility] [place] [facility] [address] [id number] [place] [address]- 3352 Nov, [facility] [place] [facility] [address] [id number] [place] [address]- 3575 Nov, [facility] [place] [facility] [address] [id number] [place] [address]- 3382 Nov, [facility] [place] [facility] [address] [id number] [place] [address]- 1002 Nov, [facility] [place] [facility] [address] [id number] [place] [address]- 3591 Nov, [facility] [place] [facility] [address] [id number] [place] [address]- 6180 Nov, [facility] [place] [facility] [address] [id number] [place] [address]- 1813 Nov, [facility] [place] [facility] [address] [id number] [place] [address]- 4729 Nov, [facility] [place] [facility] [address] [id number] [place] [address]- 9770 Oct, [facility] [place] [facility] [address] [id number] [place] [address]- 6741 Oct, [facility] [place] [facility] [address] [id number] [place] [address]- 2357 Oct, [facility] [place] [facility] [address] [id number] [place] [address]- 1664 Oct, [facility] [place] [facility] [address] [id number] [place] [address]- 5984 Oct, [facility] [place] [facility] [address] [id number] [place] [address]- 5915 Oct, [facility] [place] [facility] [address] [id number] [place] [address]- 0725 Oct, [facility] [place] [facility] [address] [id number] [place] [address]- 7816 Oct, [facility] [place] [facility] [address] [id number] [place] [address]- 3534 Oct, [facility] [place] [facility] [address] [id number] [place] [address]- 5365 Oct, [facility] [place] [facility] [address] [id number] [place] [address]- 4512 Oct, [facility] [place] [facility] [address] [id number] [place] [address]- 5943 Oct, [facility] [place] [facility] [address] [id number] [place] [address]- 1385 Oct, [facility] [place] [facility] [address] [id number] [place] [address]- 0302 Oct, [facility] [place] [facility] [address] [id number] [place] [address]- 6481 Oct, [facility] [place] [facility] [address] [id number] [place] [address]- 3772 Oct, [facility] [place] [facility] [address] [id number] [place] [address]- 9606 Oct, [facility] [place] [facility] [address] [id number] [place] [address]- 1363 Sep, [facility] [place] [facility] [address] [id number] [place] [address]- 6438 27 Sep, 2013 [facility] [place] [facility] [address] [id number] [place] [address]- 6450 Sep, [facility] [place] [facility] [address] [id number] [place] [address]- 5927 20 Sep, 2013 [facility] [place] [facility] [address] [id number] [place] [address]- 1152 18 Sep, 2013 [facility] [place] [facility] [address] [id number] [place] [address] 18 Sep, 2013 [facility] [place] [facility] [address] [id number] [place] [address]85 17 Sep, 2013 [facility] [place] [facility] [address] [id number] [place] [address]80 17 Sep, 2013 [facility] [place] [facility] [address] [id number] [place] [address]149 11 Sep, 2013 [facility] [place] [facility] [address] [id number] [place] [address] Sep, [facility] [place] [facility] [address] [id number] [place] [address] Sep, [facility] [place] [facility] [address] [facility] [id number] [place] [address] Sep, [facility] [place] [facility] [address] [id number] [place] [address]491 Sep, [facility] [place] [facility] [address] [id number] [place] [address] 39[address] Sep, [facility] [place] [facility] [address] [id number] [place] [address]- 8089 09 Sep, 2013 [facility] [place] [facility] [address] [id number] [place] [address]- 7384 09 Sep, 2013 [facility] [place] [facility] [address] [id number] [place] [address]- [address] 07 Sep, 2013 [facility] [place] [facility] [address] [id number] [place] [address] Sep, [facility] [place] [facility] [address] [id number] [place] [address]- 6945 Sep, [facility] [place] [facility] [address] [id number] [place] [address] Sep, [facility] [place] [facility] [address] [id number] [place] [address] 2005 Sep, [facility] [place] [facility] [address] [id number] [place] [address]16 Sep, [facility] [place] [facility] [address] [id number] [place] [address]- [address] August, [facility] [place] [facility] [address] [id number] [place] [address]993 August, [facility] [place] [facility] [address] [id number] [place] [address]40 August, [facility] [place] [facility] [address] [id number] [place] [address] 79[address] August, [facility] [place] [facility] [address] [id number] [place] [address]- 279[address] August, [facility] [place] [facility] [address] [id number] [place] [address] 98[address] August, [facility] [place] [facility] [address] [id number] [place] [address]- 0166 August, [facility] [place] [facility] [address] [id number] [place] [address]- [address] August, [facility] [place] [facility] [address] [id number] [place] [address]- 5768 August, [facility] [place] [facility] [address] [id number] [place] [address] August, [facility] [place] [facility] [address] [id number] [place] [address]- 6771 August, [facility] [place] [facility] [address] [id number] [place] [address]- 6729 Jul, [facility] [place] [facility] [address] [id number] [place] [address] 5441 Jul, [facility] [place] [facility] [address] [id number] [place] [address]- 8236 Jul, [facility] [place] [facility] [address] [id number] [place] [address]- 3834 Jul, [facility] [place] [facility] [address] [id number] [place] [address]- 5830 Jul, [facility] [place] [facility] [address] [id number] [place] [address]- 1577 Jul, [facility] [place] [facility] [address] [id number] [place] [address]- 8211 Jul, [facility] [place] [facility] [address] [id number] [place] [address]- 5440 Jul, [facility] [place] [facility] [address] [id number] [place] [address]- 3224 Jul, [facility] [place] [facility] [address] [id number] [place] [address]- [address] Jul, [facility] [place] [facility] [address] [id number] [place] [address]- 6338 16 Jul, 2013 [facility] [place] [facility] [address] [id number] [place] [address]- 6138 Jul, [facility] [place] [facility] [address] [id number] [place] [address]- 1666 Jul, [facility] [place] [facility] [address] [id number] [place] [address]- 7549 Jul, [facility] [place] [facility] [address] [id number] [place] [address]- 7254 Jul, [facility] [place] [facility] [address] [id number] [place] [address]- 5564 Jul, [facility] [address] [id number] [place] [address]- 8060 Jul, [facility] [place] [facility] [address] [id number] [place] [address]- 8670 Jul, [facility] [address] [id number] [place] [address]- [address] Jul, [facility] [place] [facility] [address] [id number] [place] [address]- 8693 Jul, [facility] [place] [facility] [address] [id number] [place] [address]- 0395 Jul, [facility] [place] [facility] [address] [id number] [place] [address]- 9944 Jul, [facility] [address] [id number] [place] [address] 0435 Jul, [facility] [address] [id number] [place] [address]- 6171 Jun, [facility] [place] [facility] [address] [id number] [place] [address]- 6185 Jun, [facility] [address] [id number] [place] [address]- 7500 Jun, [facility] [place] [facility] [address] [id number] [place] [address]- 9189 Jun, [facility] [place] [facility] [address] [id number] [place] [address]- 8859 Jun, [facility] [place] [facility] [address] [id number] [place] [address]- 1161 Jun, [facility] [place] [facility] [address] [id number] [place] [address]- 9565 Jun, [facility] [place] [facility] [address] [id number] [place] [address]- 5484 Jun, [facility] [place] [facility] [address] [id number] [place] [address]- 2148 18 Jun, 2013 [facility] [place] [facility] [address] [id number] [place] [address]- [address]371 18 Jun, 2013 [facility] [place] [facility] [address] [id number] [place] [address]- 2516 Jun, [facility] [place] [facility] [address] [id number] [place] [address]- 0210 Jun, [facility] [place] [facility] [address] [id number] [place] [address]- 8064 May, [facility] [place] [facility] [address] [id number] [place] [address]- 7662 May, [facility] [place] [facility] [address] [id number] [place] [address]- [address]508 Apr, [facility] [place] [facility] [address] [id number] [place] [address]- 4515 Apr, [facility] [place] [facility] [address] [id number] [place] [address]- 9842 30 Apr, 2013 [facility] [place] [facility] [address] [id number] [place] [address]- 8471 Apr, [facility] [place] [facility] [address] [id number] [place] [address]- 8387 Apr, [facility] [place] [facility] [address] [id number], [place] [address]- [address]45 Apr, [facility] [place] [facility] [address] [id number] [place] [address]- 0021 Apr, [facility] [place] [facility] [address] [address] [id number] [place] [address] Apr, [facility] [place] [facility] [address] [id number] [place] [address]26 14 Apr, 2013 [facility] [place] [facility] [address] [id number], [place] [address] 39[address] Apr, [facility] [address] [id number] [place] [address] 8[address] Apr, [facility] [place] [facility] [address] [id number] [place] [address] 7167 Mar, [facility] [address] [facility] [id number] [place] [address] 7078 Mar, [facility] [place] [facility] [address] [id number] [place] [address] 4423 Mar, [facility] [address] [id number] [place] [address] 5[address] Mar, [facility] [place] [facility] [address] [id number] [place] [address] 1589 Feb, [facility] [address] [id number], [place] [address] 1483 Feb, [facility] [place] [facility] [address] [id number], [place] [address] 3436 Feb, [facility] [address] [id number] [place] [address] 4991 Feb, [facility] [place] [facility] [address] [facility] [id number], [place] [address]- 4[address] Feb, [facility] [address] [id number], [place] [address] 9740 Feb, [facility] [place] [facility] [address] [id number], [place] [address] 0[address] Feb, [facility] [place] [facility] [address] [id number], [place] [address] 2525 Feb, [facility] [place] [facility] [address] [facility] [id number], [place] [address]- 4[address] Feb, [facility] [place] [facility] [address] [facility] [id number], [place] [address] Feb, [facility] [place] [facility] [address] [id number] [place] [address]- 7796 Feb, [facility] [place] [facility] [address] [id number] [place] [address]- 2304 Jan, [facility] [place] [facility] [address] [id number] [place] [address] Jan, [facility] [place] [facility] [address] [id number] [place] [address]- 3963 Jan, [facility] [place] [facility] [address] [id number] [place] [address]- 4829 Jan, [facility] [place] [facility] [address] [id number] [place] [address]- 3507 Jan, [facility] [place] [facility] [address] [id number] [place] [address]- 8181 Jan, [facility] [place] [facility] [address] [id number] [place] [address]- 3855 Jan, [facility] [place] [facility] [address] [id number] [place] [address]- 5592 02 Jan, 2013 [facility] [place] [facility] [address] [id number] [place] [address]- 0460 30 Dec, 2012 [facility] [place] [facility] [address] [id number] [place] [address]- 8086 25 Sep, 2012 [facility] [place] [facility] [address] [id number] [place] [address]- 8023 18 Sep, 2012 [facility] [place] [facility] [address] [id number] [place] [address] 2543 17 Sep, 2012 [facility] [place] [facility] [address] [id number] [place] [address] 2546 17 Sep, 2012 [facility] [place] [facility] [address] [id number] [place] [address]- 254 16 Sep, 2012 [facility] [place] [facility] [address] [id number] [place] [address]- 3830 13 Dec, 2012 [facility] [place] [facility] [address] [id number] [place] [address]- 4544 11 Dec, 2012 [facility] [place] [facility] [address] [id number] [place] [address]- 8543 05 Dec, 2012 [facility] [place] [facility] [address] [id number] [place] [address]- 3003 04 Dec, 2012 [facility] [place] [facility] [address] [id number] [place] [address]- 2378 30 Nov, 2012 [facility] [place] [facility] [address] [id number] [place] [address]- 2080 Nov, [facility] [place] [facility] [address] [id number] [place] [address]- 9822 Nov, [facility] [place] [facility] [address] [id number] [place] [address]- 8353 Nov, [facility] [place] [facility] [address] [id number] [place] [address]- 2228 Nov, [facility] [place] [facility] [address] [id number] [place] [address]- 2264 Nov, [facility] [place] [facility] [address] [id number] [place] [address]- 6764 Nov, [facility] [place] [facility] [address] [id number] [place] [address]- 5611 Oct, [facility] [place] [facility] [address] [id number] [place] [address]- 4999 Oct, [facility] [place] [facility] [address] [id number] [place] [address]- 5474 Oct, [facility] [place] [facility] [address] [id number] [place] [address]- 7287 Oct, [facility] [place] [facility] [address] [id number] [place] [address]- 1156 15 Oct, 2012 [facility] [place] [facility] [address] [id number] [place] [address]- 8259 Oct, [facility] [address] [id number] [place] [address]- 9844 Sep, [facility] [place] [facility] [address] [id number] [place] [address]- 2636 Sep, [facility] [address] [id number] [place] [address]- 0885 Sep, [facility] [place] [facility] [address] [id number] [place] [address]- 2643 14 Sep, 2012 [facility] [address] [id number] [place] [address]- 0156 13 Sep, 2012 [facility] [place] [facility] [address] [id number] [place] [address]- 2892 Sep, [facility] [address] [id number] [place] [address]- 0025 07 Sep, 2012 [facility] [place] [facility] [address] [id number] [place] [address]- 5507 Sep, [facility] [place] [facility] [address] [id number] [place] [address]- 8187 Sep, [facility] [place] [facility] [address] [id number] [place] [address]- 9912 August, [facility] [place] [facility] [address] [id number] [place] [address]- 8162 August, [facility] [place] [facility] [address] [id number] [place] [address]- 0654 August, [facility] [place] [facility] [address] [id number] [place] [address]- 0845 August, [facility] [place] [facility] [address] [id number] [place] [address]- 0920 August, [facility] [place] [facility] [address] [id number] [place] [address] August, [facility] [address] [id number] [place] [address]- 2546 August, [facility] [address] [id number] [place] [address]- 2546 August, [facility] [address] [id number] [place] [address]- 7066 Jul, [facility] [address] [id number] [place] [address]- 2546 Jul, [facility] [place] [id number] Jul [facility] [address] [id number] [place] [address]- 4026 Jun, [facility] [address] [id number] [place] [address]- 2066 Jun, [facility] [address] [id number] [place] [address]- 6056 Jun, [facility] [address] [id number] [place] [address]- 0478 Jun, [facility] [address] [id number] [place] [address]- 6236 Jun, [facility] [address] [id number] [place] [address]- 2546 Jun, [facility] [address] [id number] [place] [address]- 2546 May, [facility] [address] [id number] [place] [address]- 2546 May, [facility] [address] [id number] [place] [address]- 2546 May, [facility] [address] [id number] [place] [address]- 2546 May, [facility] [address] [id number] [place] [address]- 3278 May, [facility] [address] [id number] [place] [address]- 6894 Apr, [facility] [address] [id number] [place] [address]- 7246 Apr, [facility] [address] [facility] [id number] [place] [address]- 0656 Apr, [facility] [place] [facility] [address] [id number] [place] [address]- 0805 Apr, [facility] [address] [id number] [place] [address]- 0355 Apr, [facility] [address] [id number] [place] [address]- 6279 Apr, [facility] [address] [facility] [id number] [place] [address]- 0547 Mar, [facility] [place] [facility] [address] [id number] [place] [address]- 0284 Mar, [facility] [address] [id number] [place] [address]- 4999 Mar, [facility] [place] [facility] [address] [facility] [id number] [place] [address]- 7651 Mar, [facility] [place] [facility] [address] [id number] [place] [address]- 3833 19 Mar, 2012 [facility] [place] [facility] [address] [id number], [place] [address]- 9183 18 Mar, 2012 [facility] [place] [facility] [address] [id number] [place] [address]- 6154 18 Mar, 2012 [facility] [place] [facility] [address] [facility] [id number] [place] [address]- 9276 10 Mar, 2012 [facility] [place] [facility] [address] [facility] [id number] [place] [address]- 8908 10 Mar, 2012 [facility] [place] [facility] [address] [id number] [place] [address]- 7076 05 Mar, 2012 [facility] [place] [facility] [address] [id number] [place] [address]- 2214 05 Mar, 2012 [facility] [place] [facility] [address] [id number] [place] [address]- 2175 Feb, [facility] [place] [facility] [address] [id number] [place] [address]- 5067 Feb, [facility] [place] [facility] [address] [id number] [place] [address]- 4191 Feb, [facility] [place] [facility] [address] [id number] [place] [address]- 1209 Feb, [facility] [place] [facility] [address] [id number] [place] [address]- 3238 Feb, [facility] [place] [facility] [address] [id number] [place] [address]- 2370 Feb, [facility] [place] [facility] [address] [id number] [place] [address]- 8082 Feb, [facility] [place] [facility] [address] [id number] [place] [address]- 6267 Feb, [facility] [place] [facility] [address] [facility] [id number] [place] [address]- 9952 Feb, [facility] [place] [facility] [address] [id number] [place] [address]- 0491 Feb, [facility] [place] [facility] [address] [id number] [place] [address]- 3905 Feb, [facility] [place] [facility] [address] [id number] [place] [address]- 6938 Jan, [facility] [place] [facility] [address] [id number] [place] [address]- 0075 Jan, [facility] [place] [facility] [address] [id number] [place] [address]- 2096 Jan, [facility] [place] [facility] [address] [id number] [place] [address]- 4747 Jan, [facility] [place] [facility] [address] [id number] [place] [address]- 4296 Jan, [facility] [place] [facility] [address] [id number] [place] [address]- 1408 Jan, [facility] [place] [facility] [address] [id number] [place] [address]- 3233 Jan, [facility] [place] [facility] [address] [id number] [place] [address]- 0072 24 Dec, 2011 [facility] [place] [facility] [address] [id number] [place] [address]- 1329 17 Dec, 2011 [facility] [place] [facility] [address] [id number] [place] [address]- 5128 13 Dec, 2011 [facility] [place] [facility] [address] [id number] [place] [address]- 9422 12 Dec, 2011 [facility] [place] [facility] [address] [id number] [place] [address]- 4413 Nov, [facility] [place] [facility] [address] [id number] [place] [address]- 4562 Nov, [facility] [place] [facility] [address] [id number] [place] [address]- 6312 17 Nov, 2011 [facility] [place] [facility] [address] [id number] [place] [address]- 7356 15 Nov, 2011 [facility] [place] [facility] [address] [id number] [place] [address]- 5784 14 Nov, 2011 [facility] [place] [facility] [address] [id number] [place] [address]- 8251 13 Nov, 2011 [facility] [place] [facility] [address] [id number] [place] [address]- 7553 10 Nov, 2011 [facility] [place] [facility] [address] [id number] [place] [address]- 4841 Nov, [facility] [place] [facility] [address] [id number] [place] [address]- 0388 Nov, [facility] [place] [facility] [address] [id number] [place] [address]- 8353 Nov, [facility] [place] [facility] [address] [id number] [place] [address]- 0374 Nov, [facility] [place] [facility] [address] [id number] [place] [address]- 6801 Nov, [facility] [place] [facility] [address] [id number] [place] [address]- 2107 Nov, [facility] [place] [facility] [address] [id number] [place] [address]- 0954 Oct, [facility] [place] [facility] [address] [id number] [place] [address]- 7564 Oct, [facility] [place] [facility] [address] [id number] [place] [address]- 4574 Oct, [facility] [place] [facility] [address] [id number] [place] [address]- 7152 Oct, [facility] [place] [facility] [address] [id number] [place] [address]- 5923 Oct, [facility] [place] [facility] [address] [id number] [place] [address]- 8711 Oct, [facility] [place] [facility] [address] [id number] [place] [address]- 1843 Oct, [facility] [place] [facility] [address] [id number] [place] [address]- 4407 Oct, [facility] [place] [facility] [address] [id number] [place] [address]- 8743 Oct, [facility] [place] [facility] [address] [id number] [place] [address]- 5425 Sep, [facility] [place] [facility] [address] [id number] [place] [address]- 7278 Sep, [facility] [place] [facility] [address] [id number] [place] [address]- 1646 Sep, [facility] [place] [facility] [address] [id number] [place] [address]- 2166 Sep, [facility] [address] [id number] [place] [address]- 9796 Sep, [facility] [place] [facility] [address] [id number] [place] [address]- 9348 Sep, [facility] [place] [facility] [address] [id number] [place] [address]- 3788 Sep, [facility] [place] [facility] [address] [id number] [place] [address]- 1540 Sep, [facility] [address] [id number] [place] [address]- 8310 August, [facility] [address] [id number] [place] [address]- 8400 August, [facility] [place] [facility] [address] [id number] [place] [address]- 0602 August, [facility] [address] [id number] [place] [address]- 9904 August, [facility] [place] [facility] [address] [id number] [place] [address]- 9855 August, [facility] [place] [facility] [address] [id number] [place] [address]- 3719 August, [facility] [place] [facility] [address] [id number] [place] [address]- 4420 August, [facility] [place] [facility] [address] [id number] [place] [address]- 0607 August, [facility] [place] [facility] [address] [id number] [place] [address]- 5404 August, [facility] [address] [facility] [id number], [place] [address]- 5631 August, [facility] [address] [facility] [id number], [place] [address]- 7896 August, [facility] [address] [facility] [id number], [place] [address]- 5976 August, [facility] [address] [facility] [id number], [place] [address]- 1316 Oct, IMMUNIZATIONS No Known Immunizations SOCIAL HISTORY Never Assessed REASON FOR VISIT Vomiting, nausea, diarrhea 6-10times/day x 2 weeks----DBennettRN, urinary frequency, feels not emptying well PLAN OF CARE Activity Details Follow Up 4 Weeks as scheduled with PCP Reason: VITAL SIGNS Height 63 in 2017-12-04 Weight 394 lbs 2017-12-04 Temperature 98.4 degrees Fahrenheit 2017-12-04 Heart Rate 100 bpm 2017-12-04 Respiratory Rate 20 2017-12-04 BMI 69.79 kg/m2 2017-12-04 Blood pressure systolic 144 mmHg 2017-12-04 Blood pressure diastolic 82 mmHg 2017-12-04 MEDICATIONS Medication Instructions Dosage Frequency Start Date End Date Duration Status Cetirizine HCl 10 mg Orally Once a day 1 tablet 24h 90 days Active MetFORMIN HCl ER 500 mg Orally Once a day 2 tablet with evening meal 24h Nov, 30 day(s) Active Montelukast Sodium 10 mg Orally Once a day 1 tablet in the evening 24h 90 days Active Rosuvastatin Calcium 20 mg Orally Once a day 1 tablet 24h Oct, 90 days Active Sucralfate 1 GM Orally at bedtime 2 tablet Active CodefiedTouch Ultra Test - TEST FOUR TIMES DAILY 25 Active Nexium 40 mg Orally Once a day 1 capsule 24h 30 Active Potassium Chloride Eugenia ER 10 MEQ Orally Once a day 1 tablet with food 24h 90 days Active Loperamide HCl 2 MG Orally 2 times a day 1 capsule as needed 12h Oct, 03 days Active Test strips as directed Oct, Active Lancets - as directed Nov, Active Zantac 150 MG Orally Once a day 1 tablet at bedtime 24h Active Zofran 4 MG Orally every 4 hrs 1 tablet as needed 4h 3 Active Glucometer glucometer as directed Oct, Active Tylenol 325 MG Orally every 6 hrs 2 tablets as needed 6h Oct, Active Lyrica 150 MG Orally 2 times a day 1 capsule 12h 28 days Active Mirtazapine 30 MG Orally Once a day 1 tablet at bedtime 24h 30 Active Lasix 40 mg Orally Once a day 1 tablet 24h 90 days Active RESULTS Name Result Date Reference Range UA LONG DIP (IN HOUSE) 2017-12-04 Lot # [id number] Exp date 07/2018 Clarity clear Color yellow Odor none GLU 2+ BASSEM negative KET negative SG 1.025 BLO trace-intact pH 5.5 Protein 3+ URO 0.2 NIT negative PRISCILLA negative Lot # Exp date PROCEDURES Procedure Date Ordered Result Body Site URINALYSIS, AUTO, W/O SCOPE Dec 04, 2017 LAB NOT BILLED BY [facility] Dec 04, 2017 INSTRUCTIONS MEDICATIONS ADMINISTERED No Known [...] Surgical History bladder surgery Hospitalization History [facility] for right groin pain 05/2011 Hospitalization History [facility] for wound on buttocks 08/2012 Hospitalization History Via [facility] [place], hypoxia secondary to pneumonia 12/02-12/09 Hospitalization History Pneumonia, elevated CO2 on Bipap was in ICU 08/2013 Hospitalization History Hypoxia, Exacerbation COPD, Chest pain 09/05/15 Hospitalization History suicidal ideations-[place] 12/28 Hospitalization History hypoxia--[facility] 02/13/2016 Hospitalization History shortness of breath at june 2016 Hospitalization History Shortness of breath at august 2016 Hospitalization History SOB, chest pain at 12/2016
--- OUTSIDE RECORDS SUMMARY | 2018-02-11 12:43 | XMS REPORT ---
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 Jun, [place] [id number] [place] [address] 46380- 5203 Jun, Unspecified mood [affective] disorder [place] [id number] [place] [address] 26832- 7939 Jun, Unspecified mood [affective] disorder [place] [id number] [place] [address] 75680- 4099 18 Jun, 2015 Unspecified mood [affective] disorder [place] [id number] [place] [address] 97885- 0235 15 Jun, 2015 Unspecified mood [affective] disorder [place] [id number] [place] [address] 93656- 9796 14 Jun, 2015 [place] [id number] [place] [address] 69243- 2815 09 Jun, 2015 Type 2 diabetes mellitus with hyperglycemia E11.65 ; Oxygen dependent Z99.81 ; Folliculitis L73.9 ; Dysuria R30.0 ; Encounter for contraceptive management Z30.9 and Dog bite W54.0XXA [facility] [id number] [place] [address] 69052- 1358 04 Jun, 2015 Unspecified mood [affective] disorder F39 [facility] [id number] [place] [address] 97999- 7335 Jun, Type 2 diabetes mellitus with hyperglycemia E11.65 [facility] [id number] [place] [address] 49880- 7592 May, Unspecified mood [affective] disorder F39 [facility] [id number] [place] [address] 05327- 9353 May, [facility] [id number] [place] [address] 27532- 7086 May, [facility] [id number] [place] [address] 21169- 0777 May, [facility] [id number] [place] [address] 91062- 0988 Apr, [facility] [id number] [place] [address] 92851- 1395 Apr, Unspecified mood [affective] disorder F39 [facility] [id number] [place] [address] 63983- 0457 Apr, [facility] [id number] [place] [address] 79422- 2252 Apr, [facility] [id number] [place] [address] 27508- 9871 Apr, [facility] [id number] [place] [address] 46611- 6506 Apr, Dysuria R30.0 and Well woman exam (no gynecological exam) Z00.00 [facility] [id number] [place] [address] 12012- 0080 Mar, [facility] [id number] [place] [address] 46265- 0408 Mar, [facility] [id number] [place] [address] [id number] Mar, Dental examination Z01.20 [facility] [id number] [place] [address] 51815- 4890 Mar, Chronic diarrhea K52.9 ; Intractable vomiting with nausea, vomiting of unspecified type R11.2 ; Cellulitis, unspecified cellulitis site L03.90 ; Type 2 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 and Postinflammatory hyperpigmentation L81.0 [facility] [id number] [place] [address] 44787- 7782 Mar, Unspecified mood [affective] disorder F39 [facility] [id number] [place] [address] 18840- 1927 Mar, Unspecified mood [affective] disorder F39 [facility] [id number] [place] [address] 01143- 5696 Mar, [facility] [id number] [place] [address] 94894- 8839 Mar, [facility] [id number] [place] [address] 56196- 0764 Mar, [facility] [id number] [place] [address] 63296- 8529 Mar, [facility] [id number] [place] [address] 55827- 4486 Mar, [facility] [id number] [place] [address] 33213- 5398 Mar, [facility] [id number] [place] [address] 34665- 4820 Feb, Unspecified mood [affective] disorder F39 [facility] [id number] [place] [address] 05291- 9649 Feb, [facility] [id number] [place] [address] 78914- 8052 Feb, [facility] [id number] [place] [address] 30809- 6664 Jan, Unspecified mood [affective] disorder F39 [facility] [address] [id number] [id number] Jan, Encounter for dental examination Z01.20 [facility] [id number] [place] [address] 12933- 3064 Jan, [facility] [id number] [place] [address] 51278- 3289 Jan, [facility] [id number] [place] [address] 94084- 0383 Jan, [facility] [id number] [place] [address] 11565- 7992 Jan, [facility] [id number] [place] [address] 90924- 2940 Jan, [facility] [id number] [place] [address] 31485- 0939 Jan, Abdominal abscess K65.1 and Dental caries K02.9 [facility] [id number] [place] [address] 18219- 0205 Jan, [facility] [id number] [place] [address] 56024- 1566 Dec, Diabetes with neurological manifestations, type II or unspecified type, not stated as uncontrolled 250.60 ; Essential hypertension, benign 401.1 ; Concussion 850.9 and Skin texture changes 782.8 [facility] [address], [place] [address]- 4818 Dec, [facility] [id number] [place] [address] 79121- 3316 Dec, [facility] [id number] [place] [address] 86523- 0886 Dec, [facility] [id number] [place] [address] 42244- 5895 Dec, [facility] [address], [place] [address]- 1894 17 Dec, 2014 Affective disorder 296.90 [facility] [id number] [place] [address] 83172 2546 14 Dec, 2014 [facility] [id number] [place] [address] 79058 2546 10 Dec, 2014 Affective disorder 296.90 [facility] [id number] [place] [address] 65834 2541 04 Sep, 2014 [facility] [id number] [place] [address] 56330 2542 04 Dec, 2014 [facility] [id number] [place] [address] 25318- 1052 04 Dec, 2014 [facility] [id number] [place] [address] 05313- 3535 03 Dec, 2014 [facility] [id number] [place] [address] 21077- 6065 Nov, Affective disorder 296.90 [facility] [id number] [place] [address] 19540 2543 Nov, [facility] [id number] [place] [address] 58333- 2541 Nov, Affective disorder 296.90 [facility] [id number] [place] [address] 40643 2546 Nov, Diarrhea 787.91 [facility] [id number] [place] [address] 60623 2542 Nov, [facility] [id number] [place] [address] 98831 2546 Nov, Diarrhea 787.91 [facility] [id number] [place] [address] 84883 2549 Nov, Diarrhea 787.91 and Hyperlipidemia 272.4 [facility] [id number] [place] [address] 39270- 0302 Nov, Diarrhea 787.91 [facility] [id number] [place] [address] 32404- 4987 Nov, Affective disorder 296.90 [facility] [id number] [place] [address] 37338- 2270 Nov, Affective disorder 296.90 [facility] [id number] [place] [address] 69414- 2956 Nov, Affective disorder 296.90 [facility] [id number] [place] [address] 98485- 2371 Nov, [facility] [id number] [place] [address] 44180- 5528 Nov, [facility] [id number] [place] [address] 24157- 6040 Nov, [facility] [id number] [place] [address] 03281- 8782 Nov, Episodic mood disorder 296.90 [facility] [id number] [place] [address] 42007- 4106 Nov, [facility] [id number] [place] [address] 51859- 0459 Nov, [facility] [id number] [place] [address] 05337- 7968 Nov, [facility] [id number] [place] [address] 12187- 5605 Nov, [facility] [id number] [place] [address] 55955- 5179 Nov, [facility] [id number] [place] [address] 14730- 8341 Nov, Lymphedema 457.1 ; Hyperlipidemia 272.4 ; Essential hypertension, benign 401.1 and Numbness of toes 782.0 [facility] [id number] [place] [address] [place] [address]- 2340 Nov, Episodic mood disorder 296.90 [facility] [address] [id number] [place] [address]- 5231 Oct, 2014 [facility] [place] [facility] [address] [facility] [id number] [place] [address]- 1357 Oct, 2014 [facility] [address] [facility] [facility] [id number] [place] [address]- 6626 Oct, 2014 [facility] [place] [facility] [address] [facility] [id number] [place] [address]- 0149 Oct, 2014 [facility] [address] [place] [address]- 2364 Oct, 2014 [facility] [id number] [place] [address]- 3945 Oct, 2014 [facility] [address] [place] [address]- 8902 Oct, 2014 [facility] [id number] [place] [address]- 6950 Oct, [facility] [address] [place] [address]- 6815 Oct, Episodic mood disorder 296.90 [facility] [id number] [place] [address]- 6200 Sep, [facility] [id number] [address]- 2698 Sep, [facility] [id number] [address]- 1214 Sep, [facility] [place] [facility] [id number] [place] [address]- 2714 Sep, [facility] [place] [facility] [address] [facility] [id number], [place] [address]- 9464 Sep, [facility] [place] [facility] [id number] [place] [address]- 3278 Sep, Episodic mood disorder 296.90 [facility] [address] [address]- 3633 Sep, Unspecified episodic mood disorder 296.90 [facility] [address], [place] [address]- 6263 Sep, [facility] [id number] [place] [address] 71968- 0774 Sep, [facility] [id number] [place] [address]61- 8829 16 Sep, 2014 Episodic mood disorder 296.90 [facility] [id number] [place] [address]12- 6980 Sep, [facility] [id number] [place] [address] 87274- 9217 Sep, [facility] [id number] [place] [address] 74626- 5769 Sep, [facility] [id number] [place] [address] 96481- 5805 Sep, Hematemesis 578.0 and Vomiting 787.03 [facility] [id number], [place] [address] Sep, Episodic mood disorder 296.90 [facility] [id number], [place] [address] 08 Sep, 2014 [facility] [id number], [place] [address] Sep, [facility] [id number] [place] [address] 45187- 2958 Sep, Diabetes mellitus without mention of complication, type II or unspecified type, not stated as uncontrolled 250.00 and Other chronic pain 338.29 [facility] [id number], [place] [address] Sep, Episodic mood disorder 296.90 [facility] [address] [facility] [id number] [place] [address] Sep, [facility] [id number] [place] [address] Sep, Episodic mood disorder 296.90 [facility] [id number] [place] [address] 2546 Sep, [facility] [id number] [place] [address] August, [facility] [id number] [place] [address] August, [facility] [id number] [place] [address] August, Episodic mood disorder 296.90 [facility] [id number] [place] [address]- [address] August, [facility] [id number] [place] [address]- [address]26 August, Unspecified episodic mood disorder 296.90 [facility] [id number] [place] [address] 2406 August, Vomiting 787.03 [facility] [id number], [place] [address] August, [facility] [id number] [place] [address] August, [facility] [id number] [place] [address] 4316 August, [facility] [id number] [place] [address] August, [facility] [id number] [place] [address]- [address]46 August, [facility] [id number] [place] [address]- [address] Jul, [facility] [place] [facility] [address] [id number] [place] [address]- [address] 14 Jul, 2014 [facility] [place] [facility] [address] [id number] [place] [address]- [address] Jul, [facility] [place] [facility] [address] [id number] [place] [address]- 9663 30 Jun, 2014 [facility] [place] [facility] [address] [id number] [place] [address]- [address]096 30 Jun, 2014 [facility] [place] [facility] [address] [id number] [place] [address]- 0553 30 Jun, 2014 [facility] [place] [facility] [address] [id number] [place] [address]- 9621 30 Jun, 2014 [facility] [place] [facility] [address] [id number] [place] [address]- 6899 Jun, [facility] [place] [facility] [address] [id number] [place] [address]- 2890 30 Jun, 2014 [facility] [place] [facility] [address] [id number] [place] [address]- 8911 Jun, [facility] [place] [facility] [address] [address] [id number] [place] [address] 30 Jun, 2014 [facility] [place] [facility] [address] [id number] [place] [address] 8775 Jun, [facility] [place] [facility] [address] [id number] [place] [address] 9142 Jun, [facility] [place] [facility] [address] [id number] [place] [address] 9945 Jun, [facility] [place] [facility] [address] [id number] [place] [address] 3236 Jun, [facility] [place] [facility] [address] [id number] [place] [address] 0756 Jun, [facility] [place] [facility] [address] [id number] [place] [address] 4032 26 Jun, 2014 [facility] [place] [facility] [address] [id number] [place] [address]- 8328 24 Jun, 2014 [facility] [place] [facility] [address] [id number] [place] [address]- 8149 23 Jun, 2014 [facility] [place] [facility] [address] [id number] [place] [address]- 6656 23 Jun, 2014 [facility] [place] [facility] [address] [id number] [place] [address]- 3708 23 Jun, 2014 [facility] [place] [facility] [address] [id number] [place] [address]- 1321 23 Jun, 2014 [facility] [place] [facility] [address] [id number] [place] [address]- 8745 Jun, [facility] [place] [facility] [address] [id number] [place] [address]- 0546 Jun, [facility] [place] [facility] [address] [id number] [place] [address]- 4310 20 Jun, 2014 [facility] [place] [facility] [address] [id number] [place] [address]- 0897 20 Jun, 2014 [facility] [place] [facility] [address] [id number] [place] [address]- 4657 20 Jun, 2014 [facility] [place] [facility] [address] [id number] [place] [address]- 0426 20 Jun, 2014 [facility] [place] [facility] [address] [id number] [place] [address]- 3725 19 Jun, 2014 [facility] [place] [facility] [address] [id number] [place] [address]- 5417 19 Jun, 2014 [facility] [place] [facility] [address] [id number] [place] [address]- 8928 18 Jun, 2014 [facility] [place] [facility] [address] [id number] [place] [address]- 4411 18 Jun, 2014 [facility] [place] [facility] [address] [id number] [place] [address] 6016 17 Jun, 2014 [facility] [place] [facility] [address] [id number] [place] [address]- 4519 17 Jun, 2014 [facility] [place] [facility] [address] [id number] [place] [address]- 9396 16 Jun, 2014 [facility] [place] [facility] [address] [id number] [place] [address]- 2061 16 Jun, 2014 [facility] [place] [facility] [address] [id number] [place] [address]- 3216 16 Jun, 2014 [facility] [place] [facility] [address] [id number] [place] [address]- 5117 16 Jun, 2014 [facility] [place] [facility] [address] [id number] [place] [address]- 1229 16 Jun, 2014 [facility] [place] [facility] [address] [id number] [place] [address]- 7272 16 Jun, 2014 [facility] [place] [facility] [address] [id number] [place] [address]- 1062 13 Jun, 2014 [facility] [place] [facility] [address] [id number] [place] [address]- 3062 13 Jun, 2014 [facility] [place] [facility] [address] [id number] [place] [address]- 7376 12 Jun, 2014 [facility] [place] [facility] [address] [id number] [place] [address]- 6503 12 Jun, 2014 [facility] [place] [facility] [address] [id number] [place] [address]- 1546 09 Jun, 2014 [facility] [place] [facility] [address] [id number] [place] [address]- 0942 09 Jun, 2014 [facility] [place] [facility] [address] [id number] [place] [address]- 9006 09 Jun, 2014 [facility] [place] [facility] [address] [id number] [place] [address]- 9875 Jun, [facility] [place] [facility] [address] [id number] [place] [address]- 0168 Jun, [facility] [place] [facility] [address] [id number] [place] [address]- 8514 Jun, [facility] [place] [facility] [address] [id number] [place] [address]- 9637 Jun, [facility] [place] [facility] [address] [id number] [place] [address]- 2722 Jun, [facility] [place] [facility] [address] [id number] [place] [address]- 9386 Jun, [facility] [place] [facility] [address] [id number] [place] [address]- 9989 Jun, [facility] [place] [facility] [address] [facility] [id number] [place] [address]- 3584 Jun, [facility] [place] [facility] [address] [id number] [place] [address]- 6922 Jun, [facility] [place] [facility] [address] [id number] [place] [address]- 5760 Jun, [facility] [place] [facility] [address] [id number] [place] [address]- 4741 Jun, [facility] [place] [facility] [address] [id number], [place] [address]- 1774 Jun, [facility] [place] [facility] [address] [id number], [place] [address]- 0419 Jun, [facility] [place] [facility] [address] [id number] [place] [address]- 6670 May, [facility] [place] [facility] [address] [id number] [place] [address]- 8054 May, [facility] [place] [facility] [address] [id number] [place] [address]- 2015 May, [facility] [place] [facility] [address] [id number] [place] [address] 2546 25 May, 2014 [facility] [place] [facility] [address] [id number] [place] [address] 2546 May, 2014 [facility] [place] [facility] [address] [id number] [place] [address] 2546 24 May, 2014 [facility] [place] [facility] [address] [id number] [place] [address]- 7694 20 May, 2014 [facility] [place] [facility] [address] [id number] [place] [address]- 2542 May, 2014 [facility] [place] [facility] [address] [id number] [place] [address]- 8670 May, 2014 [facility] [place] [facility] [address] [facility] [id number] [place] [address]- 6138 20 May, 2014 [facility] [place] [facility] [address] [facility] [id number] [place] [address]- 6165 18 May, 2014 [facility] [place] [facility] [address] [facility] [id number] [place] [address]- 7067 18 May, 2014 [facility] [place] [facility] [address] [facility] [id number] [place] [address]- 9553 13 May, 2014 [facility] [place] [facility] [address] [facility] [id number] [place] [address]- 1339 13 May, 2014 [facility] [place] [facility] [address] [facility] [id number], [place] [address]- 254 11 May, 2014 [facility] [place] [facility] [address] [facility] [id number] [place] [address]- 2546 11 May, 2014 [facility] [place] [facility] [address] [facility] [id number] [place] [address]- 4556 11 May, 2014 [facility] [place] [facility] [address] [facility] [id number] [place] [address]- 4416 11 May, 2014 [facility] [place] [facility] [address] [facility] [id number] [place] [address]- 9694 May, 2014 [facility] [place] [facility] [address] [id number] [place] [address]- 4052 May, 2014 [facility] [place] [facility] [address] [id number] [place] 4036 May, 2014 [facility] [place] [facility] [address] [id number] [place] [address]- 4856 May, 2014 [facility] [place] [facility] [address] [id number] [place] [address]- 6088 May, 2014 [facility] [place] [facility] [address] [id number] [place] [address]- 2039 May, 2014 [facility] [place] [facility] [address] [id number] [place] [address]- 2910 May, 2014 [facility] [place] [facility] [address] [id number] [place] [address]- 0520 May, 2014 [facility] [place] [facility] [address] [id number] [place] [address]- 9817 May, [facility] [place] [facility] [address] [id number] [place] [address]- 9093 Apr, [facility] [place] [facility] [address] [facility] [id number] [place] [address]- 1400 Apr, [facility] [place] [facility] [address] [id number] [place] [address]- 2268 Apr, [facility] [place] [facility] [address] [id number], [place] [address]- 5833 Apr, [facility] [place] [facility] [address] [id number] [place] [address]- 4658 Apr, [facility] [place] [facility] [address] [id number] [place] [address]- 3750 Apr, [facility] [place] [facility] [address] [facility] [id number] [place] [address]- 1139 Apr, [facility] [place] [facility] [address] [id number] [place] [address]- 6895 Apr, [facility] [place] [facility] [address] [id number] [place] [address]- 5521 Apr, [facility] [place] [facility] [address] [id number] [place] [address]- 3024 Apr, [facility] [place] [facility] [address] [id number] [place] [address]- 8159 Apr, [facility] [place] [facility] [address] [id number] [place] [address]- 0117 Apr, [facility] [place] [facility] [address] [id number] [place] [address]- 0959 Apr, [facility] [place] [facility] [address] [id number] [place] [address]- 9814 Apr, [facility] [place] [facility] [address] [id number], [place] [address]- 1797 Apr, [facility] [place] [facility] [address] [id number] [place] [address]- 3742 Apr, [facility] [place] [facility] [address] [id number], [place] [address]- 0489 Apr, [facility] [place] [facility] [address] [id number], [place] [address]- 7215 Apr, [facility] [place] [facility] [address] [id number], [place] [address]- 1831 Apr, [facility] [place] [facility] [address] [id number] [place] [address]- 4721 Apr, [facility] [place] [facility] [address] [id number] [place] [address]- 1615 Mar, [facility] [place] [facility] [address] [id number] [place] [address]- 6117 Mar, [facility] [place] [facility] [address] [id number] [place] [address]- 0767 24 Mar, 2014 [facility] [place] [facility] [address] [id number] [place] [address]- 0035 24 Mar, 2014 [facility] [place] [facility] [address] [id number] [place] [address]- 9046 Mar, [facility] [place] [facility] [address] [id number] [place] [address]- 6976 Mar, [facility] [place] [facility] [address] [id number] [place] [address]- 1275 18 Mar, 2014 [facility] [place] [facility] [address] [id number] [place] [address]- 6934 18 Mar, 2014 [facility] [place] [facility] [address] [id number] [place] [address]- 1673 15 Mar, 2014 [facility] [place] [facility] [address] [id number] [place] [address]- 0130 15 Mar, 2014 [facility] [place] [facility] [address] [id number] [place] [address]- 5769 15 Mar, 2014 [facility] [place] [facility] [address] [id number] [place] [address]- 7303 15 Mar, 2014 [facility] [place] [facility] [address] [id number] [place] [address]- 6697 Mar, [facility] [place] [facility] [address] [id number] [place] [address]- 8788 Mar, [facility] [place] [facility] [address] [id number] [place] [address]- 1264 Mar, [facility] [place] [facility] [address] [id number] [place] [address] Mar, [facility] [place] [facility] [address] [id number] [place] [address]- 2452 Feb, [facility] [place] [facility] [address] [id number] [place] [address]807 Feb, [facility] [place] [facility] [address] [id number] [place] [address]- 6040 Feb, [facility] [place] [facility] [address] [id number] [place] [address]- 1317 Feb, [facility] [place] [facility] [address] [id number] [place] [address]- 0489 Feb, [facility] [place] [facility] [address] [id number] [place] [address]- 1675 Feb, [facility] [place] [facility] [address] [id number] [place] [address]- 7691 19 Feb, 2014 [facility] [place] [facility] [address] [id number] [place] [address]- 9203 18 Feb, 2014 [facility] [place] [facility] [address] [id number] [place] [address]- 4871 18 Feb, 2014 [facility] [place] [facility] [address] [id number] [place] [address]- 6056 17 Feb, 2014 [facility] [place] [facility] [address] [id number] [place] [address]- 4061 17 Feb, 2014 [facility] [place] [facility] [address] [id number] [place] [address]- 8774 17 Feb, 2014 [facility] [place] [facility] [address] [id number] [place] [address]- 6350 17 Feb, 2014 [facility] [place] [facility] [address] [id number] [place] [address]- 4674 14 Feb, 2014 [facility] [place] [facility] [address] [id number] [place] [address]- 5611 14 Feb, 2014 [facility] [place] [facility] [address] [id number] [place] [address]- 3345 14 Feb, 2014 [facility] [place] [facility] [address] [id number] [place] [address]- 4565 14 Feb, 2014 [facility] [place] [facility] [address] [id number] [place] [address]- 1557 Feb, [facility] [place] [facility] [address] [id number] [place] [address]- 8234 Feb, [facility] [place] [facility] [address] [id number] [place] [address]- 9528 Feb, [facility] [place] [facility] [address] [id number] [place] [address] Feb, [facility] [place] [facility] [address] [id number] [place] [address]- 5693 Jan, [facility] [place] [facility] [address] [id number] [place] [address]- 1477 Jan, [facility] [place] [facility] [address] [id number] [place] [address]- 9962 Jan, [facility] [place] [facility] [address] [id number] [place] [address]- 1189 Jan, [facility] [place] [facility] [address] [id number] [place] [address]- 1634 Jan, [facility] [place] [facility] [address] [id number] [place] [address]- 9987 Jan, [facility] [place] [facility] [address] [id number] [place] [address]- 7532 Jan, [facility] [place] [facility] [address] [id number], [place] [address]- 4705 Jan, [facility] [place] [facility] [address] [id number], [place] [address]- 2323 Jan, [facility] [place] [facility] [address] [id number] [place] [address]- 8642 Jan, [facility] [place] [facility] [address] [id number], [place] [address]- 3619 Jan, [facility] [place] [facility] [address] [id number] [place] [address]- 4920 Jan, [facility] [place] [facility] [address] [id number] [place] [address]- 8277 17 Jan, 2013 [facility] [place] [facility] [address] [id number] [place] [address]- 2640 17 Jan, 2014 [facility] [place] [facility] [address] [id number] [place] [address]- 5371 15 Jan, 2014 [facility] [place] [facility] [address] [id number] [place] [address]- 1032 15 Jan, 2014 [facility] [place] [facility] [address] [id number] [place] [address]- 7048 14 Jan, 2014 [facility] [place] [facility] [address] [id number] [place] [address]- 2974 14 Jan, 2014 [facility] [place] [facility] [address] [id number] [place] [address]- 6233 13 Jan, 2014 [facility] [place] [facility] [address] [id number] [place] [address]- 4509 13 Jan, 2014 [facility] [place] [facility] [address] [id number] [place] [address]- 6582 13 Jan, 2014 [facility] [place] [facility] [address] [id number] [place] [address]- 7502 13 Jan, 2014 [facility] [place] [facility] [address] [id number] [place] [address]- 2565 10 Jan, 2014 [facility] [place] [facility] [address] [id number] [place] [address]- 3812 02 Jan, 2014 [facility] [place] [facility] [address] [id number] [place] [address]- 1639 Jan, [facility] [place] [facility] [address] [id number] [place] [address]- 3630 25 Dec, 2013 [facility] [place] [facility] [address] [id number] [place] [address]- 0963 Dec, [facility] [place] [facility] [address] [id number] [place] [address]- 3656 Dec, [facility] [place] [facility] [address] [id number] [place] [address]- 4539 23 Sep, 2013 [facility] [place] [facility] [address] [id number] [place] [address]- 2556 19 Sep, 2013 [facility] [place] [facility] [address] [id number] [place] [address]- 5433 19 Sep, 2013 [facility] [place] [facility] [address] [id number] [place] [address] 2542 17 Sep, 2013 [facility] [place] [facility] [address] [id number] [place] [address]- 7994 17 Sep, 2013 [facility] [place] [facility] [address] [id number] [place] [address]- 4024 09 Sep, 2013 [facility] [place] [facility] [address] [id number] [place] [address]- 6889 09 Sep, 2013 [facility] [place] [facility] [address] [id number] [place] [address]- 1520 08 Sep, 2013 [facility] [place] [facility] [address] [id number] [place] [address]- 0817 08 Sep, 2013 [facility] [place] [facility] [address] [id number] [place] [address]- 9186 04 Sep, 2013 [facility] [place] [facility] [address] [id number] [place] [address]- 2357 04 Sep, 2013 [facility] [place] [facility] [address] [id number], [place] [address]- 2544 02 Sep, 2013 [facility] [place] [facility] [address] [id number] [place] [address]- 2542 02 Sep, 2013 [facility] [place] [facility] [address] [id number] [place] [address]- 2542 02 Sep, 2013 [facility] [place] [facility] [address] [id number] [place] [address]- 3320 02 Sep, 2013 [facility] [place] [facility] [address] [id number] [place] [address]- 9809 Nov, [facility] [place] [facility] [address] [id number] [place] [address]- 7913 Nov, [facility] [place] [facility] [address] [id number] [place] [address]- 2082 Nov, [facility] [place] [facility] [address] [id number] [place] [address]- 1328 Nov, [facility] [place] [facility] [address] [id number] [place] [address]- 1894 Nov, [facility] [place] [facility] [address] [id number] [place] [address]- 1022 Nov, [facility] [place] [facility] [address] [id number] [place] [address]- 7258 Nov, [facility] [place] [facility] [address] [id number] [place] [address]- 9030 Nov, [facility] [place] [facility] [address] [id number] [place] [address] Nov, [facility] [place] [facility] [address] [id number] [place] [address] Nov, [facility] [place] [facility] [address] [id number] [place] [address] Nov, [facility] [place] [facility] [address] [id number] [place] [address] Nov, [facility] [place] [facility] [address] [id number] [place] [address] Oct, [facility] [place] [facility] [address] [id number] [place] [address] Oct, [facility] [place] [facility] [address] [id number] [place] [address] Oct, [facility] [place] [facility] [address] [id number] [place] [address] Oct, [facility] [place] [facility] [address] [id number] [place] [address] Oct, [facility] [place] [facility] [address] [id number] [place] [address] Oct, [facility] [place] [facility] [address] [id number] [place] [address] Oct, [facility] [place] [facility] [address] [id number] [place] [address] Oct, [facility] [place] [facility] [address] [id number] [place] [address] Oct, [facility] [place] [facility] [address] [id number] [place] [address] Oct, [facility] [place] [facility] [address] [id number] [place] [address] 0665 Oct, [facility] [place] [facility] [address] [id number] [place] [address] Oct, [facility] [place] [facility] [address] [id number] [place] [address] Oct, [facility] [place] [facility] [address] [id number] [place] [address] Oct, [facility] [place] [facility] [address] [id number] [place] [address]993 Oct, [facility] [place] [facility] [address] [id number] [place] [address] 7983 Oct, [facility] [place] [facility] [address] [id number] [place] [address] Oct, [facility] [place] [facility] [address] [id number] [place] [address] 36[address] Sep, [facility] [place] [facility] [address] [id number] [place] [address] 69[address] Sep, [facility] [place] [facility] [address] [id number] [place] [address]295 Sep, [facility] [place] [facility] [address] [id number] [place] [address]- [address] Sep, [facility] [place] [facility] [address] [id number] [place] [address] Sep, [facility] [place] [facility] [address] [id number] [place] [address] 130[address] Sep, [facility] [place] [facility] [address] [id number] [place] [address]- 9312 Sep, [facility] [place] [facility] [address] [id number] [place] [address]- 3647 Sep, [facility] [place] [facility] [address] [id number] [place] [address] 1279 Sep, [facility] [place] [facility] [address] [id number] [place] [address] 70[address] Sep, [facility] [place] [facility] [address] [id number] [place] [address]- [address] Sep, [facility] [place] [facility] [address] [id number] [place] [address]- [address] Sep, [facility] [place] [facility] [address] [id number] [place] [address]- 7315 Sep, [facility] [place] [facility] [address] [id number], [place] [address] Sep, [facility] [place] [facility] [address] [id number], [place] [address] Sep, [facility] [place] [facility] [address] [id number] [place] [address] 45[address] Sep, [facility] [place] [facility] [address] [id number] [place] [address]- [address] 07 Sep, 2013 [facility] [place] [facility] [address] [id number] [place] [address]- [address] 07 Sep, 2013 [facility] [place] [facility] [address] [id number] [place] [address]- 1085 Sep, [facility] [place] [facility] [address] [id number] [place] [address]- 6471 Sep, [facility] [place] [facility] [address] [id number] [place] [address]- 7813 Sep, [facility] [place] [facility] [address] [id number] [place] [address]- 0044 Sep, [facility] [place] [facility] [address] [id number] [place] [address]- 1335 August, [facility] [place] [facility] [address] [id number] [place] [address]647 August, [facility] [place] [facility] [address] [id number] [place] [address] 7670 August, [facility] [place] [facility] [address] [id number] [place] [address]- 49[address] August, [facility] [place] [facility] [address] [id number] [place] [address]- 14[address] August, [facility] [place] [facility] [address] [id number] [place] [address]- [address]297 August, [facility] [place] [facility] [address] [id number] [place] [address]- 7831 August, [facility] [place] [facility] [address] [id number] [place] [address]- 6024 August, [facility] [place] [facility] [address] [id number] [place] [address]- 1404 August, [facility] [place] [facility] [address] [id number] [place] [address]- 2601 August, [facility] [place] [facility] [address] [id number] [place] [address]- 8895 August, [facility] [place] [facility] [address] [id number] [place] [address] Jul, [facility] [place] [facility] [address] [id number] [place] [address]- [address]276 28 Jul, 2013 [facility] [place] [facility] [address] [id number] [place] [address] 8264 Jul, [facility] [place] [facility] [address] [id number] [place] [address]- 2487 Jul, [facility] [place] [facility] [address] [id number] [place] [address]- 4946 Jul, [facility] [place] [facility] [address] [id number] [place] [address]- [address] Jul, [facility] [place] [facility] [address] [id number] [place] [address]- 5395 Jul, [facility] [place] [facility] [address] [id number] [place] [address]- 3469 Jul, [facility] [place] [facility] [address] [id number] [place] [address]- 3070 Jul, [facility] [place] [facility] [address] [id number] [place] [address]- 3915 18 Jul, 2013 [facility] [place] [facility] [address] [id number] [place] [address]- 7411 16 Jul, 2013 [facility] [place] [facility] [address] [id number] [place] [address]- 0843 14 Jul, 2013 [facility] [place] [facility] [address] [id number] [place] [address]- 8867 14 Jul, 2013 [facility] [place] [facility] [address] [id number] [place] [address]- [address]150 11 Jul, 2013 [facility] [place] [facility] [address] [id number] [place] [address]- 6509 11 Jul, 2013 [facility] [place] [facility] [address] [id number] [place] [address]- [address]23 10 Jul, 2013 [facility] [place] [facility] [address] [id number] [place] [address]- 1488 Jul, [facility] [place] [facility] [address] [id number] [place] [address]- 4156 Jul, [facility] [place] [facility] [address] [id number] [place] [address]- 3029 Jul, [facility] [place] [facility] [address] [id number] [place] [address]- 7157 Jul, [facility] [place] [facility] [address] [id number] [place] [address]- 6217 Jul, [facility] [place] [facility] [address] [id number] [place] [address] Jul, [facility] [place] [facility] [address] [id number] [place] [address] 2869 Jul, [facility] [place] [facility] [address] [id number] [place] [address] Jun, [facility] [place] [facility] [address] [id number] [place] [address] 8811 Jun, [facility] [place] [facility] [address] [id number] [place] [address]- 2485 Jun, [facility] [place] [facility] [address] [id number] [place] [address] 7770 Jun, [facility] [place] [facility] [address] [id number] [place] [address]- 45[address] Jun, [facility] [place] [facility] [address] [id number] [place] [address]- 2961 Jun, [facility] [place] [facility] [address] [id number] [place] [address]- 7298 Jun, [facility] [place] [facility] [address] [id number] [place] [address]- 5231 Jun, [facility] [place] [facility] [address] [id number] [place] [address]- 2345 Jun, [facility] [place] [facility] [address] [id number] [place] [address] 3746 18 Jun, 2013 [facility] [address] [id number] [place] [address]- 5682 Jun, [facility] [place] [facility] [address] [id number] [place] [address]- 7057 Jun, [facility] [place] [facility] [address] [id number] [place] [address]- 6687 May, [facility] [place] [facility] [address] [id number] [place] [address]- 0944 May, [facility] [place] [facility] [address] [id number] [place] [address]- 1728 Apr, [facility] [place] [facility] [address] [id number] [place] [address] 1929 Apr, [facility] [place] [facility] [address] [id number] [place] [address]- 4965 Apr, [facility] [address] [id number] [place] [address]- 4058 Apr, [facility] [place] [facility] [address] [id number] [place] [address] 37[address] Apr, [facility] [address] [id number] [place] [address]- 1304 Apr, [facility] [place] [facility] [address] [id number] [place] [address]- 1564 Apr, [facility] [place] [facility] [address] [id number] [place] [address]- 6919 Apr, [facility] [place] [facility] [address] [id number] [place] [address]- 4954 Apr, [facility] [place] [facility] [address] [id number] [place] [address]- 9526 Apr, [facility] [place] [facility] [address] [id number] [place] [address]- 2168 Apr, [facility] [address] [id number] [place] [address]- 1044 Mar, [facility] [place] [facility] [address] [id number] [place] [address]- 0968 Mar, [facility] [place] [facility] [address] [id number] [place] [address]- 7225 Mar, [facility] [place] [facility] [address] [id number] [place] [address]- 4018 Mar, [facility] [place] [facility] [address] [id number] [place] [address]- 4841 Feb, [facility] [place] [facility] [address] [id number] [place] [address]- 4750 Feb, [facility] [place] [facility] [address] [id number] [place] [address]- 8376 Feb, [facility] [place] [facility] [address] [id number], [place] [address] 2049 Feb, [facility] [place] [facility] [address] [id number], [place] [address]- 8792 Feb, [facility] [place] [facility] [address] [id number], [place] [address]- 3245 Feb, [facility] [place] [facility] [address] [id number], [place] [address]- 9229 Feb, [facility] [place] [facility] [address] [id number], [place] [address]- 6934 Feb, [facility] [place] [facility] [address] [id number], [place] [address]- 9134 Feb, [facility] [place] [facility] [address] [id number], [place] [address]- 4332 Feb, [facility] [place] [facility] [address] [id number], [place] [address]- 1254 Feb, [facility] [place] [facility] [address] [id number], [place] [address]- 2414 Jan, 2012 [facility] [place] [facility] [address] [id number] [place] [address]- 8116 25 Jan, 2012 [facility] [place] [facility] [address] [id number], [place] [address]- 3614 Jan, [facility] [place] [facility] [address] [id number] [place] [address]- 9727 11 Jan, 2012 [facility] [place] [facility] [address] [id number] [place] [address]- 4701 10 Jan, 2012 [facility] [place] [facility] [address] [id number] [place] [address]- 7255 10 Jan, 2013 [facility] [place] [facility] [address] [id number] [place] [address]- 2053 03 Jan, 2013 [facility] [place] [facility] [address] [facility] [id number], [place] [address]- 6381 02 Jan, 2013 [facility] [place] [facility] [address] [id number], [place] [address]- 3004 30 Sep, 2012 [facility] [place] [facility] [address] [id number] [place] [address]- 8833 25 Sep, 2012 [facility] [place] [facility] [address] [facility] [id number], [place] [address]- 9203 18 Sep, 2012 [facility] [place] [facility] [address] [id number], [place] [address]- 8039 17 Sep, 2012 [facility] [place] [facility] [address] [id number], [place] [address]- 2549 17 Sep, 2012 [facility] [place] [facility] [address] [id number], [place] [address]- 6025 16 Sep, 2012 [facility] [place] [facility] [address] [facility] [id number], [place] [address]- 2544 13 Sep, 2012 [facility] [place] [facility] [address] [facility] [id number], [place] [address]- 2412 11 Sep, 2012 [facility] [place] [facility] [address] [id number] [place] [address]- 3095 05 Dec, 2012 [facility] [place] [facility] [address] [id number] [place] [address]- 3592 Dec, [facility] [place] [facility] [address] [id number] [place] [address]- 5396 Nov, [facility] [place] [facility] [address] [id number] [place] [address]- 5045 Nov, [facility] [place] [facility] [address] [id number] [place] [address]- 7141 Nov, [facility] [place] [facility] [address] [id number] [place] [address]- 3720 Nov, [facility] [place] [facility] [address] [id number] [place] [address]- 9577 Nov, [facility] [place] [facility] [address] [id number] [place] [address]- 1821 Nov, [facility] [place] [facility] [address] [id number] [place] [address]- 4987 Nov, [facility] [place] [facility] [address] [id number] [place] [address]- 8389 Oct, [facility] [place] [facility] [address] [id number] [place] [address]- 1840 Oct, [facility] [place] [facility] [address] [id number] [place] [address]- 8359 Oct, [facility] [place] [facility] [address] [id number] [place] [address]- 6504 Oct, [facility] [place] [facility] [address] [id number] [place] [address]- 4151 Oct, [facility] [place] [facility] [address] [id number] [place] [address]- 5265 Oct, [facility] [place] [facility] [address] [id number] [place] [address]- 8892 Sep, [facility] [address] [id number] [place] [address]- 7124 28 Sep, 2012 [facility] [place] [facility] [address] [id number] [place] [address]- 8114 27 Sep, 2012 [facility] [place] [facility] [address] [id number] [place] [address]- 7135 14 Sep, 2012 [facility] [place] [facility] [address] [id number] [place] [address]- 2999 13 Sep, 2012 [facility] [address] [id number] [place] [address]- 5644 10 Sep, 2012 [facility] [place] [facility] [address] [id number] [place] [address]- 9558 07 Sep, 2012 [facility] [place] [facility] [address] [id number] [place] [address]- 4922 06 Sep, 2012 [facility] [place] [facility] [address] [id number] [place] [address]- 7169 05 Sep, 2012 [facility] [place] [facility] [address] [id number] [place] [address]- 4456 August, [facility] [place] [facility] [address] [id number] [place] [address]- 8254 August, [facility] [place] [facility] [address] [id number] [place] [address]- 8926 August, [facility] [place] [facility] [address] [id number], [place] [address]- 6240 August, [facility] [place] [facility] [address] [id number] [place] [address]- 0604 August, [facility] [place] [facility] [address] [id number] [place] [address]- 1284 August, [facility] [place] [facility] [address] [id number] [place] [address]- 1203 August, [facility] [place] [facility] [address] [id number] [place] [address]- 6255 August, [facility] [address] [id number] [place] [address]- 1928 Jul, [facility] [address] [facility] [id number] [place] [address]- 8177 Jul, [address] [id number] Jul [facility] [address] [id number] [place] [address]- 6233 Jun, [facility] [address] [id number] [place] [address]- 2594 Jun, [facility] [address] [id number] [place] [address]- 0328 Jun, [facility] [address] [facility] [id number] [place] [address]- 8401 Jun, [facility] [address] [id number] [place] [address]- 3340 Jun, [facility] [address] [id number] [place] [address]- 7992 Jun, [facility] [address] [facility] [id number] [place] [address]- 0108 May, [facility] [address] [id number] [place] [address]- 2713 May, [facility] [address] [id number] [place] [address]- 9450 May, [facility] [address] [id number] [place] [address]- 8847 May, [facility] [address] [id number] [place] [address]- 9957 May, [facility] [address] [facility] [id number] [place] [address]- 4947 Apr, [facility] [address] [id number] [place] [address]- 0818 15 Apr, 2012 [facility] [place] [facility] [address] [id number] [place] [address]- 3116 Apr, [facility] [place] [facility] [address] [id number] [place] [address] 2546 09 Apr, 2012 [facility] [place] [facility] [address] [id number] [place] [address]- 5386 Apr, [facility] [place] [facility] [address] [id number] [place] [address]- 0888 Apr, [facility] [place] [facility] [address] [id number] [place] [address]- 8006 26 Mar, 2012 [facility] [place] [facility] [address] [id number] [place] [address]- 1539 20 Mar, 2012 [facility] [place] [facility] [address] [id number] [place] [address]- 1663 20 Mar, 2012 [facility] [address] [id number] [place] [address]- 2959 19 Mar, 2012 [facility] [place] [facility] [address] [id number] [place] [address]- 2544 19 Mar, 2012 [facility] [place] [facility] [address] [id number] [place] [address]- 1646 18 Mar, 2012 [facility] [place] [facility] [address] [id number] [place] [address]- 2546 18 Mar, 2012 [facility] [place] [facility] [address] [id number] [place] [address] 2546 10 Mar, 2012 [facility] [place] [facility] [address] [id number] [place] [address] 2546 10 Mar, 2012 [facility] [place] [facility] [address] [id number] [place] [address]- 2546 05 Mar, 2012 [facility] [place] [facility] [address] [id number] [place] [address]- 6051 Mar, [facility] [place] [facility] [address] [id number] [place] [address]- 2814 Feb, [facility] [place] [facility] [address] [id number] [place] [address]- 3967 Feb, [facility] [place] [facility] [address] [facility] [id number] [place] [address]- 6226 Feb, [facility] [place] [facility] [address] [id number], [place] [address]- 1665 Feb, [facility] [place] [facility] [address] [id number] [place] [address]- 3810 Feb, [facility] [place] [facility] [address] [id number], [place] [address]- 4144 Feb, [facility] [place] [facility] [address] [id number] [place] [address]- 2912 Feb, [facility] [place] [facility] [address] [id number], [place] [address]- 3388 Feb, [facility] [place] [facility] [address] [id number], [place] [address]- 8924 Feb, [facility] [place] [facility] [address] [facility] [id number], [place] [address]- 6516 Feb, [facility] [place] [facility] [address] [id number], [place] [address]- 4411 Feb, [facility] [place] [facility] [address] [id number], [place] [address]- 2968 Jan, [facility] [place] [facility] [address] [id number], [place] [address]- 3535 Jan, [facility] [place] [facility] [address] [facility] [id number], [place] [address]- 5739 Jan, [facility] [place] [facility] [address] [id number], [place] [address]- 2702 Jan, [facility] [place] [facility] [address] [id number] [place] [address]- 4106 Jan, [facility] [place] [facility] [address] [id number] [place] [address]- 0940 Jan, [facility] [place] [facility] [address] [id number] [place] [address]- 8986 Jan, [facility] [place] [facility] [address] [id number] [place] [address]- 9023 24 Dec, 2011 [facility] [place] [facility] [address] [id number] [place] [address]- 6758 17 Dec, 2011 [facility] [place] [facility] [address] [id number] [place] [address]- 4745 13 Dec, 2011 [facility] [place] [facility] [address] [id number] [place] [address]- 2877 Dec, [facility] [place] [facility] [address] [id number] [place] [address]- 3353 Nov, [facility] [place] [facility] [address] [id number] [place] [address]- 7233 Nov, [facility] [place] [facility] [address] [id number] [place] [address]- 4960 Nov, [facility] [place] [facility] [address] [id number] [place] [address]- 8070 15 Nov, 2011 [facility] [place] [facility] [address] [id number] [place] [address]- 7259 14 Nov, 2011 [facility] [place] [facility] [address] [id number] [place] [address]- 6070 Nov, [facility] [place] [facility] [address] [id number] [place] [address]- 4752 Nov, [facility] [place] [facility] [address] [id number] [place] [address]- 8373 Nov, [facility] [place] [facility] [address] [id number] [place] [address]- 4332 Nov, [facility] [place] [facility] [address] [id number] [place] [address]- 3354 Nov, [facility] [place] [facility] [address] [id number] [place] [address]- 7660 Nov, [facility] [place] [facility] [address] [id number] [place] [address]- 4627 Nov, [facility] [place] [facility] [address] [id number] [place] [address]- 0020 Nov, [facility] [place] [facility] [address] [id number] [place] [address]- 4934 Oct, [facility] [place] [facility] [address] [id number] [place] [address]- 8200 Oct, [facility] [place] [facility] [address] [id number] [place] [address]- 6678 Oct, [facility] [place] [facility] [address] [id number] [place] [address]- 5027 Oct, [facility] [place] [facility] [address] [id number] [place] [address]- 3868 Oct, [facility] [place] [facility] [address] [id number] [place] [address]- 7664 Oct, [facility] [place] [facility] [address] [id number] [place] [address]- 9530 Oct, [facility] [place] [facility] [address] [id number] [place] [address]- 5512 Oct, [facility] [place] [facility] [address] [id number] [place] [address]- 0271 Oct, [facility] [place] [facility] [address] [id number] [place] [address]- 4848 Sep, [facility] [place] [facility] [address] [id number] [place] [address]- 8939 Sep, [facility] [place] [facility] [address] [id number] [place] [address]- 0911 Sep, [facility] [place] [facility] [address] [id number] [place] [address]- 4366 Sep, [facility] [place] [facility] [address] [id number] [place] [address]- 0426 Sep, [facility] [place] [facility] [address] [id number] [place] [address]- 0693 Sep, [facility] [place] [facility] [address] [id number] [place] [address]- 7389 Sep, [facility] [place] [facility] [address] [id number] [place] [address]- 2850 Sep, [facility] [place] [facility] [address] [id number] [place] [address]- 7396 August, [facility] [place] [facility] [address] [id number] [place] [address]- 3671 August, [facility] [place] [facility] [address] [id number] [place] [address]- 9795 August, [facility] [place] [facility] [address] [id number] [place] [address]- 9602 August, [facility] [place] [facility] [address] [id number] [place] [address]- 5741 August, [facility] [place] [facility] [address] [id number] [place] [address]- 2918 August, [facility] [place] [facility] [address] [id number] [place] [address]- 7258 August, [facility] [place] [facility] [address] [id number] [place] [address]- 6183 August, [facility] [place] [facility] [address] [id number] [place] [address]- 3445 August, [facility] [place] [facility] [address] [id number] [place] [address]- 1615 August, [facility] [place] [facility] [address] [facility] [id number] [place] [address] August, [facility] [address] [facility] [id number] [place] [address]- 0657 August, [facility] [address] [facility] [id number] [place] [address]- 1296 Oct, IMMUNIZATIONS No Known Immunizations SOCIAL HISTORY Never Assessed REASON FOR VISIT Refill Request PLAN OF CARE VITAL SIGNS MEDICATIONS Medication Instructions Dosage Frequency Start Date End Date Duration Status Loperamide HCl 2 MG Orally 2 times a day 1 capsule as needed 12h Oct, Active RESULTS No Results PROCEDURES No [...] Surgical History bladder surgery Hospitalization History [facility] for right groin pain 05/2011 Hospitalization History [facility] for wound on buttocks 08/2012 Hospitalization History [facility], hypoxia secondary to pneumonia 12/02-12/09 Hospitalization History Pneumonia, elevated CO2 on Bipap was in ICU 08/2013 Hospitalization History Hypoxia, Exacerbation COPD, Chest pain 09/05/15 Hospitalization History suicidal ideations-[place] 12/28 Hospitalization History hypoxia--[facility] 02/13/2016 Hospitalization History shortness of breath at june 2016 Hospitalization History Shortness of breath at august 2016 Hospitalization History SOB, chest pain at 12/2016
--- OUTSIDE RECORDS SUMMARY | 2018-02-11 12:45 | XMS REPORT ---
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 Unspecified mood [affective] disorder [address] [id number] [place] [address] 51812- 6310 18 Jun, 2015 Unspecified mood [affective] disorder [address] [id number] [place] [address] 71401- 7708 15 Jun, 2015 Unspecified mood [affective] disorder [address] [id number] [place] [address] 20209- 0371 14 Jun, 2015 [place] [id number] [place] [address] 82533- 2221 09 Jun, 2015 Type 2 diabetes mellitus with hyperglycemia E11.65 ; Oxygen dependent Z99.81 ; Folliculitis L73.9 ; Dysuria R30.0 ; Encounter for contraceptive management Z30.9 and Dog bite W54.0XXA [facility] [id number] [place] [address] 15226- 5079 04 Jun, 2015 Unspecified mood [affective] disorder F39 [facility] [id number] [place] [address] 82268- 5663 Jun, Type 2 diabetes mellitus with hyperglycemia E11.65 [facility] [id number] [place] [address] 56085- 8950 May, Unspecified mood [affective] disorder F39 [facility] [id number] [place] [address] 89071- 4280 May, [facility] [id number] [place] [address] 79479- 8421 May, [facility] [id number] [place] [address] 92264- 1672 May, [facility] [id number] [place] [address] 70762- 9934 Apr, [facility] [id number] [place] [address] 90533- 1430 Apr, Unspecified mood [affective] disorder F39 [facility] [id number] [place] [address] 05789- 2917 Apr, [facility] [id number] [place] [address] 36447- 4656 Apr, [facility] [id number] [place] [address] 42351- 9177 Apr, [facility] [id number] [place] [address] 29103- 4554 Apr, Dysuria R30.0 and Well woman exam (no gynecological exam) Z00.00 [facility] [id number] [place] [address] 47201- 2172 Mar, [facility] [id number] [place] [address] 54698- 6246 Mar, [facility] [id number] [place] [address] [id number] Mar, Dental examination Z01.20 [facility] [id number] [place] [address] 66624- 8684 Mar, Chronic diarrhea K52.9 ; Intractable vomiting with nausea, vomiting of unspecified type R11.2 ; Cellulitis, unspecified cellulitis site L03.90 ; Type 2 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 and Postinflammatory hyperpigmentation L81.0 [facility] [id number] [place] [address] 68348- 3769 Mar, Unspecified mood [affective] disorder F39 [facility] [id number] [place] [address] 29752- 3182 Mar, Unspecified mood [affective] disorder F39 [facility] [id number] [place] [address] 32501- 7445 Mar, [facility] [id number] [place] [address] 20745- 1827 Mar, [facility] [id number] [place] [address] 81787- 2199 Mar, [facility] [id number] [place] [address] 83597- 8539 Mar, [facility] [id number] [place] [address] 36259- 3980 Mar, [facility] [id number] [place] [address] 73842- 5122 Mar, [facility] [id number] [place] [address] 80484- 1622 Feb, Unspecified mood [affective] disorder F39 [facility] [id number] [place] [address] 54839- 4548 Feb, [facility] [id number] [place] [address] 12753- 2316 Feb, [facility] [id number] [place] [address] 58286- 6900 Jan, Unspecified mood [affective] disorder F39 [facility] [address] [id number] [id number] Jan, Encounter for dental examination Z01.20 [facility] [id number] [place] [address] 38412- 8060 Jan, [facility] [id number] [place] [address] 10631- 6506 Jan, [facility] [id number] [place] [address] 36369- 4029 Jan, [facility] [id number] [place] [address] 19770- 2837 Jan, [facility] [id number] [place] [address] 50653- 6532 Jan, [facility] [id number] [place] [address] 11286- 7398 Jan, Abdominal abscess K65.1 and Dental caries K02.9 [facility] [id number] [place] [address] 94479- 1538 Jan, [facility] [id number] [place] [address] 09274- 3744 Dec, Diabetes with neurological manifestations, type II or unspecified type, not stated as uncontrolled 250.60 ; Essential hypertension, benign 401.1 ; Concussion 850.9 and Skin texture changes 782.8 [facility] [address] [address]- 5896 Dec, [facility] [id number] [place] [address] 75632- 6401 Dec, [facility] [id number] [place] [address] 41368- 5551 Dec, [facility] [id number] [place] [address] 63057- 4624 Dec, [facility] [address] [address]- 1730 17 Dec, 2014 Affective disorder 296.90 [facility] [id number] [place] [address] 69523 2546 14 Dec, 2014 [facility] [id number] [place] [address] 24335 2546 10 Dec, 2014 Affective disorder 296.90 [facility] [id number] [place] [address] 89688 2544 04 Sep, 2014 [facility] [id number] [place] [address] 13681 2549 04 Dec, 2014 [facility] [id number] [place] [address] 13600- 5439 04 Dec, 2014 [facility] [id number] [place] [address] 80591- 5322 03 Dec, 2014 [facility] [id number] [place] [address] 91705- 9441 Nov, Affective disorder 296.90 [facility] [id number] [place] [address] 40755 2543 Nov, [facility] [id number] [place] [address] 49900- 2544 Nov, Affective disorder 296.90 [facility] [id number] [place] [address] 47414 2546 Nov, Diarrhea 787.91 [facility] [id number] [place] [address] 05595 2540 Nov, [facility] [id number] [place] [address] 20927 2546 Nov, Diarrhea 787.91 [facility] [id number] [place] [address] 68766 2542 Nov, Diarrhea 787.91 and Hyperlipidemia 272.4 [facility] [id number] [place] [address] 85221- 7243 Nov, Diarrhea 787.91 [facility] [id number] [place] [address] 81985- 9171 Nov, Affective disorder 296.90 [facility] [id number] [place] [address] 66872- 9242 Nov, Affective disorder 296.90 [facility] [id number] [place] [address] 97745- 2031 Nov, Affective disorder 296.90 [facility] [id number] [place] [address] 43027- 4351 Nov, [facility] [id number] [place] [address] 73446- 0967 Nov, [facility] [id number] [place] [address] 76696- 3264 Nov, [facility] [id number] [place] [address] 68262- 6817 Nov, Episodic mood disorder 296.90 [facility] [id number] [place] [address] 72235- 1442 Nov, [facility] [id number] [place] [address] [id number]- 6348 Nov, [facility] [id number] [place] [address] 24940- 0399 Nov, [facility] [id number] [place] [address] 88527- 7657 Nov, [facility] [id number] [place] [address] 14174- 7253 Nov, [facility] [id number] [place] [address] 42487- 6793 Nov, Lymphedema 457.1 ; Hyperlipidemia 272.4 ; Essential hypertension, benign 401.1 and Numbness of toes 782.0 [facility] [id number] [place] [address] [place] [address]- 9467 Nov, Episodic mood disorder 296.90 [facility] [address] [id number] [place] [address] Oct, 2014 [facility] [place] [facility] [address] [facility] [id number] [place] [address] 7894 Oct, 2014 [facility] [address] [facility] [id number] [place] [address] 8762 Oct, 2014 [facility] [place] [facility] [address] [facility] [id number] [place] [address] 5123 Oct, 2014 [facility] [id number] [place] [address] 9614 Oct, 2014 [facility] [address] [id number] [place] [address] 9023 Oct, 2014 [facility] [id number] [place] [address] 4182 Oct, 2014 [facility] [address] [id number] [place] [address]- 1591 Oct, [facility] [id number] [place] [address] 1513 Oct, Episodic mood disorder 296.90 [facility] [address] [id number] [place] [address]- 2957 Sep, [facility] [address] [id number] [address] 3793 Sep, [facility] [address] [id number] [address] 6974 Sep, [facility] [place] [facility] [address] [id number] [place] [address]- 4568 Sep, [facility] [place] [facility] [address] [facility] [id number] [address] 9[address] Sep, [facility] [place] [facility] [address] [id number] [place] [address]- 2208 Sep, Episodic mood disorder 296.90 [facility] [id number] [address] 27[address] Sep, Unspecified episodic mood disorder 296.90 [facility] [id number] [address] Sep, [facility] [id number] [place] [address] 23089- 7029 Sep, [facility] [id number] [place] [address] 15677- 3614 16 Sep, 2014 Episodic mood disorder 296.90 [facility] [id number] [place] [address] 99292- 7630 Sep, [facility] [id number] [place] [address] 66065- 4807 Sep, [facility] [id number] [place] [address] 78275- 8355 Sep, [facility] [id number] [place] [address] 50399- 3700 Sep, Hematemesis 578.0 and Vomiting 787.03 [facility] [id number], [place] [address] Sep, Episodic mood disorder 296.90 [facility] [id number] [address] 08 Sep, 2014 [facility] [id number], [place] [address] Sep, [facility] [id number] [place] [address] Sep, Diabetes mellitus without mention of complication, type II or unspecified type, not stated as uncontrolled 250.00 and Other chronic pain 338.29 [facility] [id number], [place] [address] Sep, Episodic mood disorder 296.90 [facility] [address] [facility] [id number] [place] [address] 28[address] Sep, [facility] [id number] [place] [address] Sep, Episodic mood disorder 296.90 [facility] [id number] [place] [address] 2546 Sep, [facility] [id number] [place] [address] 8[address] August, [facility] [id number] [place] [address] August, [facility] [id number] [place] [address] 9[address] August, Episodic mood disorder 296.90 [facility] [id number] [place] [address] 279[address] August, [facility] [id number] [place] [address] 4[address] August, Unspecified episodic mood disorder 296.90 [facility] [id number] [place] [address] 98[address] August, Vomiting 787.03 [facility] [id number], [place] [address] August, [facility] [id number] [place] [address] 67[address] August, [facility] [address] [id number] [place] [address]- 6[address] August, [facility] [address] [id number] [place] [address]- 2[address] August, [facility] [address] [id number] [place] [address]- 2546 August, [facility] [address] [id number] [place] [address]- 0[address] Jul, [facility] [place] [facility] [address] [id number] [place] [address]- 0446 14 Jul, 2014 [facility] [place] [facility] [address] [id number] [place] [address]- 7416 Jul, [facility] [place] [facility] [address] [id number] [place] [address]- 7220 30 Jun, 2014 [facility] [place] [facility] [address] [id number] [place] [address]- 4736 30 Jun, 2014 [facility] [place] [facility] [address] [id number] [place] [address]- 9477 30 Jun, 2014 [facility] [place] [facility] [address] [id number] [place] [address]- 4810 30 Jun, 2014 [facility] [place] [facility] [address] [id number] [place] [address]- 7086 Jun, [facility] [place] [facility] [address] [id number] [place] [address]- 4212 30 Jun, 2014 [facility] [place] [facility] [address] [id number] [place] [address]- 9562 Jun, [facility] [place] [facility] [address] [id number] [place] [address]- 6745 30 Jun, 2014 [facility] [place] [facility] [address] [id number] [place] [address]- 5484 Jun, [facility] [place] [facility] [address] [id number] [place] [address]- 8222 Jun, [facility] [place] [facility] [address] [id number] [place] [address]- 5105 Jun, [facility] [place] [facility] [address] [id number] [place] [address]- 9546 Jun, [facility] [place] [facility] [address] [id number] [place] [address]- 8252 Jun, [facility] [place] [facility] [address] [id number] [place] [address]- 3060 26 Jun, 2014 [facility] [place] [facility] [address] [id number] [place] [address]- 5365 24 Jun, 2014 [facility] [place] [facility] [address] [id number] [place] [address]- 0974 23 Jun, 2014 [facility] [place] [facility] [address] [id number] [place] [address]- 2307 23 Jun, 2014 [facility] [place] [facility] [address] [id number] [place] [address]- 3041 23 Jun, 2014 [facility] [place] [facility] [address] [id number] [place] [address]- 1287 23 Jun, 2014 [facility] [place] [facility] [address] [id number] [place] [address]- 3000 Jun, [facility] [place] [facility] [address] [id number] [place] [address]- 4098 Jun, [facility] [place] [facility] [address] [id number] [place] [address]- 7489 20 Jun, 2014 [facility] [place] [facility] [address] [id number] [place] [address]- 9568 20 Jun, 2014 [facility] [place] [facility] [address] [id number] [place] [address]- 5312 20 Jun, 2014 [facility] [place] [facility] [address] [id number] [place] [address]- 7520 20 Jun, 2014 [facility] [place] [facility] [address] [id number] [place] [address]- 9925 19 Jun, 2014 [facility] [place] [facility] [address] [id number] [place] [address]- 4577 19 Jun, 2014 [facility] [place] [facility] [address] [id number] [place] [address]- 4384 18 Jun, 2014 [facility] [place] [facility] [address] [id number] [place] [address]- 4693 18 Jun, 2014 [facility] [place] [facility] [address] [id number] [place] [address]- 2226 17 Jun, 2014 [facility] [place] [facility] [address] [id number] [place] [address]- 5325 17 Jun, 2014 [facility] [place] [facility] [address] [id number] [place] [address]- 9666 16 Jun, 2014 [facility] [place] [facility] [address] [id number] [place] [address]- 3381 16 Jun, 2014 [facility] [place] [facility] [address] [id number] [place] [address]- 3526 16 Jun, 2014 [facility] [place] [facility] [address] [id number] [place] [address]- 0480 16 Jun, 2014 [facility] [place] [facility] [address] [id number] [place] [address]- 0380 16 Jun, 2014 [facility] [place] [facility] [address] [id number] [place] [address]- 2213 16 Jun, 2014 [facility] [place] [facility] [address] [id number] [place] [address]- 8508 13 Jun, 2014 [facility] [place] [facility] [address] [id number] [place] [address]- 5194 13 Jun, 2014 [facility] [place] [facility] [address] [id number] [place] [address]- 4638 12 Jun, 2014 [facility] [place] [facility] [address] [id number] [place] [address]- 8279 12 Jun, 2014 [facility] [place] [facility] [address] [id number] [place] [address]- 8690 09 Jun, 2014 [facility] [place] [facility] [address] [id number] [place] [address]- 7862 09 Jun, 2014 [facility] [place] [facility] [address] [id number] [place] [address]- 0366 09 Jun, 2014 [facility] [place] [facility] [address] [id number] [place] [address]- 2600 Jun, [facility] [place] [facility] [address] [id number] [place] [address]- 2936 Jun, [facility] [place] [facility] [address] [id number] [place] [address]- 3075 Jun, [facility] [place] [facility] [address] [id number] [place] [address]- 4189 Jun, [facility] [place] [facility] [address] [id number] [place] [address]- 0616 Jun, [facility] [place] [facility] [address] [id number] [place] [address]- 0609 Jun, [facility] [place] [facility] [address] [id number] [place] [address]- 4627 Jun, [facility] [place] [facility] [address] [facility] [id number] [place] [address]- 2443 Jun, [facility] [place] [facility] [address] [id number] [place] [address]- 8464 Jun, [facility] [place] [facility] [address] [id number] [place] [address]- 0150 Jun, [facility] [place] [facility] [address] [id number] [place] [address]- 0983 Jun, [facility] [place] [facility] [address] [id number], [place] [address]- 8211 Jun, [facility] [place] [facility] [address] [id number], [place] [address]- 8710 Jun, [facility] [place] [facility] [address] [id number] [place] [address]- 0819 May, [facility] [place] [facility] [address] [id number] [place] [address]- 8724 May, [facility] [place] [facility] [address] [id number] [place] [address]- 7452 May, [facility] [place] [facility] [address] [id number] [place] [address] 2546 25 May, 2014 [facility] [place] [facility] [address] [id number] [place] [address] 2546 May, 2014 [facility] [place] [facility] [address] [id number] [place] [address] 2546 24 May, 2014 [facility] [place] [facility] [address] [id number] [place] [address]- 1732 20 May, 2014 [facility] [place] [facility] [address] [id number] [place] [address]- 2547 May, 2014 [facility] [place] [facility] [address] [id number] [place] [address]- 1161 May, 2014 [facility] [place] [facility] [address] [facility] [id number] [place] [address]- 7923 20 May, 2014 [facility] [place] [facility] [address] [facility] [id number] [place] [address]- 2348 18 May, 2014 [facility] [place] [facility] [address] [facility] [id number] [place] [address]- 1064 18 May, 2014 [facility] [place] [facility] [address] [facility] [id number] [place] [address]- 3762 13 May, 2014 [facility] [place] [facility] [address] [facility] [id number] [place] [address]- 9425 13 May, 2014 [facility] [place] [facility] [address] [facility] [id number], [place] [address]- 2545 11 May, 2014 [facility] [place] [facility] [address] [facility] [id number] [place] [address]- 2546 11 May, 2014 [facility] [place] [facility] [address] [facility] [id number] [place] [address]- 7406 11 May, 2014 [facility] [place] [facility] [address] [facility] [id number] [place] [address]- 7636 11 May, 2014 [facility] [place] [facility] [address] [facility] [id number] [place] [address]- 8378 May, 2014 [facility] [place] [facility] [address] [id number] [place] [address]- 5031 May, 2014 [facility] [place] [facility] [address] [id number] [place] 0686 May, 2014 [facility] [place] [facility] [address] [id number] [place] [address]- 7376 May, 2014 [facility] [place] [facility] [address] [id number] [place] [address]- 6172 May, 2014 [facility] [place] [facility] [address] [id number] [place] [address]- 1565 May, 2014 [facility] [place] [facility] [address] [id number] [place] [address]- 9745 May, 2014 [facility] [place] [facility] [address] [id number] [place] [address]- 2043 May, 2014 [facility] [place] [facility] [address] [id number] [place] [address]- 2809 May, [facility] [place] [facility] [address] [id number] [place] [address]- 1520 Apr, [facility] [place] [facility] [address] [facility] [id number] [place] [address]- 0287 Apr, [facility] [place] [facility] [address] [id number] [place] [address]- 5207 Apr, [facility] [place] [facility] [address] [id number], [place] [address]- 8713 Apr, [facility] [place] [facility] [address] [id number] [place] [address]- 0777 Apr, [facility] [place] [facility] [address] [id number] [place] [address]- 1278 Apr, [facility] [place] [facility] [address] [facility] [id number] [place] [address]- 6169 Apr, [facility] [place] [facility] [address] [id number] [place] [address]- 8727 Apr, [facility] [place] [facility] [address] [id number] [place] [address]- 6012 Apr, [facility] [place] [facility] [address] [id number] [place] [address]- 7138 Apr, [facility] [place] [facility] [address] [id number] [place] [address]- 3731 Apr, [facility] [place] [facility] [address] [id number] [place] [address]- 4949 Apr, [facility] [place] [facility] [address] [id number] [place] [address]- 4418 Apr, [facility] [place] [facility] [address] [id number] [place] [address]- 9722 Apr, [facility] [place] [facility] [address] [id number], [place] [address]- 1907 Apr, [facility] [place] [facility] [address] [id number] [place] [address]- 8283 Apr, [facility] [place] [facility] [address] [id number], [place] [address]- 6628 Apr, [facility] [place] [facility] [address] [id number], [place] [address]- 8279 Apr, [facility] [place] [facility] [address] [id number], [place] [address]- 2923 Apr, [facility] [place] [facility] [address] [id number] [place] [address]- 0851 Apr, [facility] [place] [facility] [address] [id number] [place] [address]- 1365 Mar, [facility] [place] [facility] [address] [id number] [place] [address]- 7267 Mar, [facility] [place] [facility] [address] [id number] [place] [address]- 5397 24 Mar, 2014 [facility] [place] [facility] [address] [id number] [place] [address]- 6122 24 Mar, 2014 [facility] [place] [facility] [address] [id number] [place] [address]- 9726 Mar, [facility] [place] [facility] [address] [id number] [place] [address]- 7816 Mar, [facility] [place] [facility] [address] [id number] [place] [address]- 9348 18 Mar, 2014 [facility] [place] [facility] [address] [id number] [place] [address]- 7720 18 Mar, 2014 [facility] [place] [facility] [address] [id number] [place] [address]- 8007 15 Mar, 2014 [facility] [place] [facility] [address] [id number] [place] [address]- 6531 15 Mar, 2014 [facility] [place] [facility] [address] [id number] [place] [address]- 4100 15 Mar, 2014 [facility] [place] [facility] [address] [id number] [place] [address]- 9441 15 Mar, 2014 [facility] [place] [facility] [address] [id number] [place] [address]- 2552 Mar, [facility] [place] [facility] [address] [id number] [place] [address]- 7036 Mar, [facility] [place] [facility] [address] [id number] [place] [address]- 8378 Mar, [facility] [place] [facility] [address] [id number] [place] 5697 Mar, [facility] [place] [facility] [address] [id number] [place] [address]- 3977 Feb, [facility] [place] [facility] [address] [id number] [place] 1492 Feb, [facility] [place] [facility] [address] [id number] [place] [address]- 7751 Feb, [facility] [place] [facility] [address] [id number] [place] [address]- 1179 Feb, [facility] [place] [facility] [address] [id number] [place] [address]- 4977 Feb, [facility] [place] [facility] [address] [id number] [place] [address]- 4784 Feb, [facility] [place] [facility] [address] [id number] [place] [address]- 3961 19 Feb, 2014 [facility] [place] [facility] [address] [id number] [place] [address]- 4479 18 Feb, 2014 [facility] [place] [facility] [address] [id number] [place] [address]- 9068 18 Feb, 2014 [facility] [place] [facility] [address] [id number] [place] [address]- 3625 17 Feb, 2014 [facility] [place] [facility] [address] [id number] [place] [address]- 9487 17 Feb, 2014 [facility] [place] [facility] [address] [id number] [place] [address]- 7544 17 Feb, 2014 [facility] [place] [facility] [address] [id number] [place] [address]- 0306 17 Feb, 2014 [facility] [place] [facility] [address] [id number] [place] [address]- 3811 14 Feb, 2014 [facility] [place] [facility] [address] [id number] [place] [address]- 8313 14 Feb, 2014 [facility] [place] [facility] [address] [id number] [place] [address]- 1241 14 Feb, 2014 [facility] [place] [facility] [address] [id number] [place] [address]- 4347 14 Feb, 2014 [facility] [place] [facility] [address] [id number] [place] [address]- 0827 Feb, [facility] [place] [facility] [address] [id number] [place] [address]- 7958 Feb, [facility] [place] [facility] [address] [id number] [place] [address]- 6098 Feb, [facility] [place] [facility] [address] [id number] [place] 6147 Feb, [facility] [place] [facility] [address] [id number] [place] [address]- 9448 Jan, [facility] [place] [facility] [address] [id number] [place] [address]- 4512 Jan, [facility] [place] [facility] [address] [id number] [place] [address]- 4357 Jan, [facility] [place] [facility] [address] [id number] [place] [address]- 7092 Jan, [facility] [place] [facility] [address] [id number] [place] [address]- 0618 Jan, [facility] [place] [facility] [address] [id number] [place] [address]- 4957 Jan, [facility] [place] [facility] [address] [id number] [place] [address]- 3596 Jan, [facility] [place] [facility] [address] [id number], [place] [address]- 5968 Jan, [facility] [place] [facility] [address] [id number], [place] [address]- 4772 Jan, [facility] [place] [facility] [address] [id number] [place] [address]- 6380 Jan, [facility] [place] [facility] [address] [id number], [place] [address]- 8923 Jan, [facility] [place] [facility] [address] [id number] [place] [address]- 2025 Jan, [facility] [place] [facility] [address] [id number] [place] [address]- 7169 17 Jan, 2013 [facility] [place] [facility] [address] [id number] [place] [address]- 9328 17 Jan, 2014 [facility] [place] [facility] [address] [id number] [place] [address]- 5145 15 Jan, 2014 [facility] [place] [facility] [address] [id number] [place] [address]- 6444 15 Jan, 2014 [facility] [place] [facility] [address] [id number] [place] [address]- 6648 14 Jan, 2014 [facility] [place] [facility] [address] [id number] [place] [address]- 5365 14 Jan, 2014 [facility] [place] [facility] [address] [id number] [place] [address]- 7244 13 Jan, 2014 [facility] [place] [facility] [address] [id number] [place] [address]- 8047 13 Jan, 2014 [facility] [place] [facility] [address] [id number] [place] [address]- 5434 13 Jan, 2014 [facility] [place] [facility] [address] [id number] [place] [address]- 5025 13 Jan, 2014 [facility] [place] [facility] [address] [id number] [place] [address]- 9203 10 Jan, 2014 [facility] [place] [facility] [address] [id number] [place] [address]- 9984 02 Jan, 2014 [facility] [place] [facility] [address] [id number] [place] [address]- 2311 Jan, [facility] [place] [facility] [address] [id number] [place] [address]- 0495 25 Dec, 2013 [facility] [place] [facility] [address] [id number] [place] [address]- 8845 Dec, [facility] [place] [facility] [address] [id number] [place] [address] Dec, [facility] [place] [facility] [address] [id number] [place] [address] 23 Sep, 2013 [facility] [place] [facility] [address] [id number] [place] [address] 19 Sep, 2013 [facility] [place] [facility] [address] [id number] [place] [address] 19 Sep, 2013 [facility] [place] [facility] [address] [id number] [place] [address] 17 Sep, 2013 [facility] [place] [facility] [address] [id number] [place] [address] 17 Sep, 2013 [facility] [place] [facility] [address] [id number] [place] [address] 09 Sep, 2013 [facility] [place] [facility] [address] [id number] [place] [address] 09 Sep, 2013 [facility] [place] [facility] [address] [id number] [place] [address] 08 Sep, 2013 [facility] [place] [facility] [address] [id number] [place] [address] 08 Sep, 2013 [facility] [place] [facility] [address] [id number] [place] [address] 69[address] 04 Sep, 2013 [facility] [place] [facility] [address] [id number] [place] [address] 49[address] 04 Sep, 2013 [facility] [place] [facility] [address] [id number], [place] [address] 02 Sep, 2013 [facility] [place] [facility] [address] [id number] [place] [address] 02 Sep, 2013 [facility] [place] [facility] [address] [id number] [place] [address] 02 Sep, 2013 [facility] [place] [facility] [address] [id number] [place] [address]- [address] 02 Sep, 2013 [facility] [place] [facility] [address] [id number] [place] [address] Nov, [facility] [place] [facility] [address] [id number] [place] [address] Nov, [facility] [place] [facility] [address] [id number] [place] [address] Nov, [facility] [place] [facility] [address] [id number] [place] [address] 69[address] Nov, [facility] [place] [facility] [address] [id number] [place] [address] Nov, [facility] [place] [facility] [address] [id number] [place] [address] 6[address] Nov, [facility] [place] [facility] [address] [id number] [place] [address] 9165 Nov, [facility] [place] [facility] [address] [id number] [place] [address] 2937 Nov, [facility] [place] [facility] [address] [id number] [place] [address] 18[address] Nov, [facility] [place] [facility] [address] [id number] [place] [address] Nov, [facility] [place] [facility] [address] [id number] [place] [address]80 Nov, [facility] [place] [facility] [address] [id number] [place] [address]- [address] Nov, [facility] [place] [facility] [address] [id number] [place] [address]- 7868 Oct, [facility] [place] [facility] [address] [id number] [place] [address] Oct, [facility] [place] [facility] [address] [id number] [place] [address]107 Oct, [facility] [place] [facility] [address] [id number] [place] [address] Oct, [facility] [place] [facility] [address] [id number] [place] [address] Oct, [facility] [place] [facility] [address] [id number] [place] [address] Oct, [facility] [place] [facility] [address] [id number] [place] [address]- [address] Oct, [facility] [place] [facility] [address] [id number] [place] [address] 83[address] Oct, [facility] [place] [facility] [address] [id number] [place] [address]- 22[address] Oct, [facility] [place] [facility] [address] [id number] [place] [address] 21[address] Oct, [facility] [place] [facility] [address] [id number] [place] [address] 15[address] Oct, [facility] [place] [facility] [address] [id number] [place] [address] 8[address] Oct, [facility] [place] [facility] [address] [id number] [place] [address] 9232 Oct, [facility] [place] [facility] [address] [id number] [place] [address] Oct, [facility] [place] [facility] [address] [id number] [place] [address] Oct, [facility] [place] [facility] [address] [id number] [place] [address]- [address] Oct, [facility] [place] [facility] [address] [id number] [place] [address] 3219 Oct, [facility] [place] [facility] [address] [id number] [place] [address] 6[address] Sep, [facility] [place] [facility] [address] [id number] [place] [address] 38[address] Sep, [facility] [place] [facility] [address] [id number] [place] [address]- 8284 Sep, [facility] [place] [facility] [address] [id number] [place] [address]- 3974 Sep, [facility] [place] [facility] [address] [id number] [place] [address]- 7396 Sep, [facility] [place] [facility] [address] [id number] [place] [address]- 5897 Sep, [facility] [place] [facility] [address] [id number] [place] [address]- 6340 Sep, [facility] [place] [facility] [address] [id number] [place] [address]- 5035 Sep, [facility] [place] [facility] [address] [id number] [place] [address]- 3776 Sep, [facility] [place] [facility] [address] [id number] [place] [address]- 0020 Sep, [facility] [place] [facility] [address] [id number] [place] [address]- 6986 Sep, [facility] [place] [facility] [address] [id number] [place] [address]- 2992 Sep, [facility] [place] [facility] [address] [id number] [place] [address]- 0083 Sep, [facility] [place] [facility] [address] [id number], [place] [address] Sep, [facility] [place] [facility] [address] [id number], [place] [address] Sep, [facility] [place] [facility] [address] [id number] [place] [address]- 0[address] Sep, [facility] [place] [facility] [address] [id number] [place] [address]- [address] 07 Sep, 2013 [facility] [place] [facility] [address] [id number] [place] [address]- 99[address] 07 Sep, 2013 [facility] [place] [facility] [address] [id number] [place] [address]- 2265 Sep, [facility] [place] [facility] [address] [id number] [place] [address]- [address]14 Sep, [facility] [facility] [address] [id number] [place] [address] Sep, [facility] [place] [facility] [address] [id number] [place] [address] Sep, [facility] [place] [facility] [address] [id number] [place] [address] August, [facility] [place] [facility] [address] [id number] [place] [address] 8689 August, [facility] [place] [facility] [address] [id number] [place] [address] 66[address] August, [facility] [place] [facility] [address] [id number] [place] [address] 6143 August, [facility] [place] [facility] [address] [id number] [place] [address] 6106 August, [facility] [place] [facility] [address] [id number] [place] [address] 5244 August, [facility] [place] [facility] [address] [id number] [place] [address] 8673 August, [facility] [facility] [address] [id number] [place] [address] 4856 August, [facility] [place] [facility] [address] [id number] [place] [address]- 1009 August, [facility] [place] [facility] [address] [id number] [place] [address]- 1773 August, [facility] [place] [facility] [address] [id number] [place] [address]- 5681 August, [facility] [place] [facility] [address] [id number] [place] [address]- 7227 Jul, [facility] [place] [facility] [address] [id number] [place] [address]- 0130 28 Jul, 2013 [facility] [place] [facility] [address] [id number] [place] [address]- 6681 Jul, [facility] [place] [facility] [address] [id number] [place] [address]- 9460 Jul, [facility] [place] [facility] [address] [id number] [place] [address]- 2644 Jul, [facility] [place] [facility] [address] [id number] [place] [address]- 8615 Jul, [facility] [place] [facility] [address] [id number] [place] [address]- 1890 Jul, [facility] [place] [facility] [address] [id number] [place] [address] 1941 Jul, [facility] [place] [facility] [address] [id number] [place] [address]- 4344 Jul, [facility] [place] [facility] [address] [id number] [place] [address]- 8933 18 Jul, 2013 [facility] [place] [facility] [address] [id number] [place] [address]- 9303 16 Jul, 2013 [facility] [place] [facility] [address] [id number] [place] [address]- 3960 14 Jul, 2013 [facility] [place] [facility] [address] [id number] [place] [address]- 1936 14 Jul, 2013 [facility] [place] [facility] [address] [id number] [place] [address]- 6932 11 Jul, 2013 [facility] [place] [facility] [address] [id number] [place] [address]- 1073 11 Jul, 2013 [facility] [place] [facility] [address] [id number] [place] [address]- 5576 10 Jul, 2013 [facility] [place] [facility] [address] [id number] [place] [address]- 2614 Jul, [facility] [place] [facility] [address] [id number] [place] [address]- 2197 Jul, [facility] [place] [facility] [address] [id number] [place] [address]- 3163 Jul, [facility] [place] [facility] [address] [id number] [place] [address]- 4126 Jul, [facility] [place] [facility] [address] [id number] [place] [address]- 9982 Jul, [facility] [address] [id number] [place] [address]- 3031 Jul, [facility] [place] [facility] [address] [id number] [place] [address]- 0372 Jul, [facility] [address] [id number] [place] [address]- 1297 Jun, [facility] [address] [id number] [place] [address]- 2726 Jun, [facility] [place] [address] [id number] [place] [address]- 8455 Jun, [facility] [place] [address] [id number] [place] [address]- 3678 Jun, [facility] [place] [address] [id number] [place] [address]- 7945 Jun, [facility] [place] [facility] [address] [id number] [place] [address]- 4587 Jun, [facility] [place] [facility] [address] [id number] [place] [address]- 4437 Jun, [facility] [address] [id number] [place] [address]- 3129 Jun, [facility] [address] [id number] [place] [address]- 5312 Jun, [facility] [address] [id number] [place] [address]- 6893 18 Jun, 2013 [facility] [address] [id number] [place] [address]- 8671 Jun, [facility] [address] [id number] [place] [address]- 4364 Jun, [facility] [address] [id number] [place] [address]- 7932 May, [facility] [address] [id number] [place] [address]- 0342 May, [facility] [address] [id number] [place] [address]- 9528 Apr, [facility] [address] [id number] [place] [address]- 3588 Apr, [facility] [address] [id number] [place] [address]- 5343 Apr, [facility] [address] [id number] [place] [address]- 5683 Apr, [facility] [address] [id number] [place] [address]- 7273 Apr, [facility] [address] [id number] [place] [address]- 5810 Apr, [facility] [address] [id number] [place] [address]- 8542 Apr, [facility] [address] [id number] [place] [address]- 5083 Apr, [facility] [address] [id number] [place] [address]- 0842 Apr, [facility] [address] [id number] [place] [address]- 9416 Apr, [facility] [address] [id number] [place] [address]- 6090 Apr, [facility] [address] [id number] [place] [address]- 3464 Mar, [facility] [address] [id number] [place] [address]- 4458 Mar, [facility] [address] [id number] [place] [address]- 5595 Mar, [facility] [address] [id number] [place] [address]- 3815 Mar, [facility] [address] [id number] [place] [address]- 4511 Feb, [facility] [address] [id number] [place] [address]- 5090 Feb, [facility] [address] [id number] [place] [address]- 8620 Feb, [facility] [address] [id number], [place] [address]- 9517 Feb, [facility] [address] [id number], [place] [address]- 2713 Feb, [facility] [address] [id number], [place] [address]- 6800 Feb, [facility] [address] [id number], [place] [address]- 3915 Feb, [facility] [address] [id number], [place] [address]- 1328 Feb, [facility] [address] [id number], [place] [address]- 3783 Feb, [facility] [address] [id number], [place] [address]- 5031 Feb, [facility] [address] [id number], [place] [address]- 7657 Feb, [facility] [address] [id number], [place] [address]- 1272 Jan, 2012 [facility] [address] [id number] [place] [address]- 7925 25 Jan, 2012 [facility] [address] [id number], [place] [address]- 7432 Jan, [facility] [address] [id number] [place] [address]- 8761 11 Jan, 2012 [facility] [address] [id number] [place] [address]- 7855 10 Jan, 2012 [facility] [address] [id number] [place] [address]- 0591 10 Jan, 2013 [facility] [address] [id number] [place] [address]- 2968 03 Jan, 2013 [facility] [address] [facility] [id number], [place] [address]- 7147 02 Jan, 2013 [facility] [address] [id number], [place] [address]- 7812 30 Sep, 2012 [facility] [address] [id number] [place] [address]- 7419 25 Sep, 2012 [facility] [address] [facility] [id number], [place] [address]- 9947 18 Sep, 2012 [facility] [address] [id number], [place] [address]- 8319 17 Sep, 2012 [facility] [address] [id number], [place] [address]- 2542 17 Sep, 2012 [facility] [address] [id number], [place] [address]- 4056 16 Sep, 2012 [facility] [address] [facility] [id number], [place] [address]- 2549 13 Sep, 2012 [facility] [address] [facility] [id number], [place] [address]- 5492 11 Sep, 2012 [facility] [address] [id number] [place] [address]- 6538 05 Dec, 2012 [facility] [address] [id number] [place] [address]- 1312 Dec, [facility] [address] [id number] [place] [address]- 3476 Nov, [facility] [address] [id number] [place] [address]- 1883 Nov, [facility] [address] [id number] [place] [address]- 6363 Nov, [facility] [address] [id number] [place] [address]- 7473 Nov, [facility] [address] [id number] [place] [address]- 8853 Nov, [facility] [address] [id number] [place] [address]- 1509 Nov, [facility] [address] [id number] [place] [address]- 1665 Nov, [facility] [address] [id number] [place] [address]- 0391 Oct, [facility] [address] [id number] [place] [address]- 1880 Oct, [facility] [address] [id number] [place] [address]- 6427 Oct, [facility] [address] [id number] [place] [address]- 5256 Oct, [facility] [address] [id number] [place] [address]- 9294 Oct, [facility] [address] [id number] [place] [address]- 7950 Oct, [facility] [address] [id number] [place] [address]- 2699 Sep, [facility] [address] [id number] [place] [address]- 0493 28 Sep, 2012 [facility] [address] [id number] [place] [address]- 5794 27 Sep, 2012 [facility] [address] [id number] [place] [address]- 8596 14 Sep, 2012 [facility] [address] [id number] [place] [address]- 0401 13 Sep, 2012 [facility] [address] [id number] [place] [address]- 8311 10 Sep, 2012 [facility] [address] [id number] [place] [address]- 4147 07 Sep, 2012 [facility] [address] [id number] [place] [address]- 2429 06 Sep, 2012 [facility] [address] [id number] [place] [address]- 0891 05 Sep, 2012 [facility] [address] [id number] [place] [address]- 7875 August, [facility] [address] [id number] [place] [address]- 6226 August, [facility] [facility] [address] [id number] [place] [address]- 6419 August, [facility] [address] [id number], [place] [address]- 6412 August, [facility] [address] [id number] [place] [address]- 7323 August, [facility] [address] [id number] [place] [address]- 2834 August, [facility] [address] [id number] [place] [address]- 9653 August, [facility] [address] [id number] [place] [address]- 0005 August, [facility] [address] [id number] [place] [address]- 9033 Jul, [facility] [address] [facility] [id number] [place] [address]- 9883 Jul, [address] [id number] Jul [facility] [address] [id number] [place] [address]- 3303 Jun, [facility] [address] [id number] [place] [address]- 1514 Jun, [facility] [address] [id number] [place] [address]- 4329 Jun, [facility] [address] [facility] [id number] [place] [address]- 6029 Jun, [facility] [address] [id number] [place] [address]- 1696 Jun, [facility] [address] [id number] [place] [address]- 8639 Jun, [facility] [address] [facility] [id number] [place] [address]- 9861 May, [facility] [address] [id number] [place] [address]- 9382 May, [facility] [address] [id number] [place] [address]- 6300 May, [facility] [address] [id number] [place] [address]- 8148 May, [facility] [address] [id number] [place] [address]- 2811 May, [facility] [address] [facility] [id number] [place] [address]- 4950 Apr, [facility] [address] [id number] [place] [address]- 6364 15 Apr, 2012 [facility] [place] [facility] [address] [id number] [place] [address]- 3716 Apr, [facility] [place] [facility] [address] [id number] [place] [address] 2546 09 Apr, 2012 [facility] [place] [facility] [address] [id number] [place] [address]- 9756 Apr, [facility] [place] [facility] [address] [id number] [place] [address]- 5533 Apr, [facility] [place] [facility] [address] [id number] [place] [address]- 4766 26 Mar, 2012 [facility] [place] [facility] [address] [id number] [place] [address]- 1096 20 Mar, 2012 [facility] [place] [facility] [address] [id number] [place] [address]- 5360 20 Mar, 2012 [facility] [address] [id number] [place] [address]- 6915 19 Mar, 2012 [facility] [place] [facility] [address] [id number] [place] [address]- 2544 19 Mar, 2012 [facility] [facility] [address] [id number] [place] [address]- 7936 18 Mar, 2012 [facility] [facility] [address] [id number] [place] [address]- 2546 18 Mar, 2012 [facility] [place] [facility] [address] [id number] [place] [address] 2546 10 Mar, 2012 [facility] [place] [facility] [address] [id number] [place] [address] 2546 10 Mar, 2012 [facility] [place] [facility] [address] [id number] [place] [address]- 2546 05 Mar, 2012 [facility] [place] [facility] [address] [id number] [place] [address]- 5717 Mar, [facility] [place] [facility] [address] [id number] [place] [address]- 3391 Feb, [facility] [place] [facility] [address] [id number] [place] [address]- 4189 Feb, [facility] [place] [facility] [address] [facility] [id number] [place] [address]- 1638 Feb, [facility] [place] [facility] [address] [id number], [place] [address]- 0727 Feb, [facility] [place] [facility] [address] [id number] [place] [address]- 2391 Feb, [facility] [place] [facility] [address] [id number], [place] [address]- 2866 Feb, [facility] [place] [facility] [address] [id number] [place] [address]- 8934 Feb, [facility] [place] [facility] [address] [id number], [place] [address]- 8620 Feb, [facility] [place] [facility] [address] [id number], [place] [address]- 9446 Feb, [facility] [place] [facility] [address] [facility] [id number], [place] [address]- 0623 Feb, [facility] [place] [facility] [address] [id number], [place] [address]- 2710 Feb, [facility] [place] [facility] [address] [id number], [place] [address]- 9148 Jan, [facility] [place] [facility] [address] [id number], [place] [address]- 3944 Jan, [facility] [place] [facility] [address] [facility] [id number], [place] [address]- 4223 Jan, [facility] [place] [facility] [address] [id number], [place] [address]- 9420 Jan, [facility] [place] [facility] [address] [id number] [place] [address]- 8148 Jan, [facility] [place] [facility] [address] [id number] [place] [address]- 8159 Jan, [facility] [place] [facility] [address] [id number] [place] [address]- 3216 Jan, [facility] [place] [facility] [address] [id number] [place] [address]- 7853 24 Dec, 2011 [facility] [place] [facility] [address] [id number] [place] [address]- 0825 17 Dec, 2011 [facility] [place] [facility] [address] [id number] [place] [address]- 7414 13 Dec, 2011 [facility] [place] [facility] [address] [id number] [place] [address]- 1203 Dec, [facility] [place] [facility] [address] [id number] [place] [address]- 0246 Nov, [facility] [place] [facility] [address] [id number] [place] [address]- 8782 Nov, [facility] [place] [facility] [address] [id number] [place] [address]- 5146 Nov, [facility] [place] [facility] [address] [id number] [place] [address]- 9707 15 Nov, 2011 [facility] [place] [facility] [address] [id number] [place] [address]- 3477 14 Nov, 2011 [facility] [place] [facility] [address] [id number] [place] [address]- 6077 Nov, [facility] [place] [facility] [address] [id number] [place] [address]- 9920 Nov, [facility] [place] [facility] [address] [id number] [place] [address]- 4925 Nov, [facility] [place] [facility] [address] [id number] [place] [address]- 3824 Nov, [facility] [place] [facility] [address] [id number] [place] [address]- 0292 Nov, [facility] [place] [facility] [address] [id number] [place] [address]- 0806 Nov, [facility] [place] [facility] [address] [id number] [place] [address]- 9062 Nov, [facility] [place] [facility] [address] [id number] [place] [address]- 1891 Nov, [facility] [place] [facility] [address] [id number] [place] [address]- 9848 Oct, [facility] [place] [facility] [address] [id number] [place] [address]- 4780 Oct, [facility] [place] [facility] [address] [id number] [place] [address]- 5830 Oct, [facility] [place] [facility] [address] [id number] [place] [address]- 7502 Oct, [facility] [place] [facility] [address] [id number] [place] [address]- 8775 Oct, [facility] [place] [facility] [address] [id number] [place] [address] Oct, [facility] [place] [facility] [address] [id number] [place] [address] Oct, [facility] [place] [facility] [address] [id number] [place] [address] Oct, [facility] [place] [facility] [address] [id number] [place] [address] Oct, [facility] [place] [facility] [address] [id number] [place] [address] Sep, [facility] [place] [facility] [address] [id number] [place] [address] Sep, [facility] [place] [facility] [address] [id number] [place] [address] Sep, [facility] [place] [facility] [address] [id number] [place] [address] Sep, [facility] [place] [facility] [address] [id number] [place] [address] Sep, [facility] [place] [facility] [address] [id number] [place] [address] Sep, [facility] [place] [facility] [address] [id number] [place] [address] Sep, [facility] [place] [facility] [address] [id number] [place] [address] Sep, [facility] [place] [facility] [address] [id number] [place] [address] August, [facility] [place] [facility] [address] [id number] [place] [address] August, [facility] [place] [facility] [address] [id number] [place] [address] August, [facility] [place] [facility] [address] [id number] [place] [address] August, [facility] [place] [facility] [address] [id number] [place] [address] August, [facility] [place] [facility] [address] [id number] [place] [address] August, [facility] [place] [facility] [address] [id number] [place] [address] August, [facility] [place] [facility] [address] [id number] [place] [address] August, [facility] [place] [facility] [address] [id number] [place] [address] August, [facility] [place] [facility] [address] [id number] [place] [address] August, [facility] [place] [facility] [address] [facility] [id number] [place] [address] August, [facility] [address] [facility] [id number] [place] [address] August, [facility] [address] [facility] [id number] [place] [address] Oct, IMMUNIZATIONS No Known Immunizations SOCIAL HISTORY Never Assessed REASON FOR VISIT [facility] VITAL SIGNS MEDICATIONS Unknown [...] Surgical History bladder surgery Hospitalization History [facility] for right groin pain 05/2011 Hospitalization History [facility] for wound on buttocks 08/2012 Hospitalization History [facility], hypoxia secondary to pneumonia 12/02-12/09 Hospitalization History Pneumonia, elevated CO2 on Bipap was in ICU 08/2013 Hospitalization History Hypoxia, Exacerbation COPD, Chest pain 09/05/15 Hospitalization History [place] ideations-[place] 12/28 Hospitalization History hypoxia--[facility] 02/13/2016 Hospitalization History shortness of breath at june 2016 Hospitalization History Shortness of breath at august 2016 Hospitalization History SOB, chest pain at 12/2016
--- OUTSIDE RECORDS SUMMARY | 2018-02-11 12:46 | XMS REPORT ---
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 [id number] [place] [address] 05553- 5373 Jul, Unspecified mood [affective] disorder F39 [facility] [id number] [place] [address] 62482 -7453 Jul, [facility] [address] [place] [address]- 2201 31 Jun, 2015 Elevated AST (SGOT) R74.0 [place] [id number] [place] [address] 62375- 2281 31 Jun, 2015 [place] [id number] [place] [address] 09195- 8273 24 Jun, 2015 Upper respiratory infection J06.9 and Type 2 diabetes mellitus with diabetic polyneuropathy E11.42 [facility] [id number] [place] [address] 06241- 6130 Jun, Unspecified mood [affective] disorder [place] [id number] [place] [address] 67686- 6658 Jun, [place] [id number] [place] [address] 50881- 4681 Jun, Unspecified mood [affective] disorder [place] [id number] [place] [address] 68141- 5588 Jun, Unspecified mood [affective] disorder [place] [id number] [place] [address] 72486- 5592 18 Jun, 2015 Unspecified mood [affective] disorder [place] [id number] [place] [address] 37162- 2246 15 Jun, 2015 Unspecified mood [affective] disorder [place] [id number] [place] [address] 91620- 6180 14 Jun, 2015 [place] [id number] [place] [address] 92447- 6445 09 Jun, 2015 Type 2 diabetes mellitus with hyperglycemia E11.65 ; Oxygen dependent Z99.81 ; Folliculitis L73.9 ; Dysuria R30.0 ; Encounter for contraceptive management Z30.9 and Dog bite W54.0XXA [facility] [id number] [place] [address] 92280- 8627 04 Jun, 2015 Unspecified mood [affective] disorder F39 [facility] [id number] [place] [address] 92346- 5459 Jun, Type 2 diabetes mellitus with hyperglycemia E11.65 [facility] [id number] [place] [address] 64435- 6478 May, Unspecified mood [affective] disorder F39 [facility] [id number] [place] [address] 45774- 5720 May, [facility] [id number] [place] [address] 48095- 5032 May, [facility] [id number] [place] [address] 57965- 0585 May, [facility] [id number] [place] [address] 42990- 1117 Apr, [facility] [id number] [place] [address] 79556- 7404 Apr, Unspecified mood [affective] disorder F39 [facility] [id number] [place] [address] 97152- 7096 Apr, [facility] [id number] [place] [address] 67871- 5693 Apr, [facility] [id number] [place] [address] 45590- 0148 Apr, [facility] [id number] [place] [address] 88990- 1500 Apr, Dysuria R30.0 and Well woman exam (no gynecological exam) Z00.00 [facility] [id number] [place] [address] 58436- 9161 Mar, [facility] [id number] [place] [address] 65466- 8340 Mar, [facility] [id number] [place] [address] [id number] Mar, Dental examination Z01.20 [facility] [id number] [place] [address] 50531- 3987 Mar, Chronic diarrhea K52.9 ; Intractable vomiting with nausea, vomiting of unspecified type R11.2 ; Cellulitis, unspecified cellulitis site L03.90 ; Type 2 diabetes mellitus with diabetic polyneuropathy E11.42 and Postinflammatory hyperpigmentation L81.0 [facility] [id number] [place] [address] 49711- 3997 Mar, Unspecified mood [affective] disorder F39 [facility] [id number] [place] [address] 34900- 0106 Mar, Unspecified mood [affective] disorder F39 [facility] [id number] [place] [address] 64132- 8174 Mar, [facility] [id number] [place] [address] 90357- 5804 Mar, [facility] [id number] [place] [address] 74844- 4080 Mar, [facility] [id number] [place] [address] 40603- 0450 Mar, [facility] [id number] [place] [address] 60161- 4772 Mar, [facility] [id number] [place] [address] 00404- 1857 Mar, [facility] [id number] [place] [address] 46748- 5084 Feb, Unspecified mood [affective] disorder F39 [facility] [id number] [place] [address] 47311- 1782 Feb, [facility] [id number] [place] [address] 93526- 0721 Feb, [facility] [id number] [place] [address] 70977- 5548 Jan, Unspecified mood [affective] disorder F[address] [facility] [address] [id number] [id number] Jan, Encounter for dental examination Z01.20 [facility] [id number] [place] [address] 69943- 6387 Jan, [facility] [id number] [place] [address] 85426- 6361 Jan, [facility] [id number] [place] [address] 10151- 6571 Jan, [facility] [id number] [place] [address] 79969- 4743 Jan, [facility] [id number] [place] [address] 89341- 8126 Jan, [facility] [id number] [place] [address] 37424- 4819 Jan, Abdominal abscess K65.1 and Dental caries K02.9 [facility] [id number] [place] [address] 80100- 3157 Jan, [facility] [id number] [place] [address] 01810- 9409 Dec, Diabetes with neurological manifestations, type II or unspecified type, not stated as uncontrolled 250.60 ; Essential hypertension, benign 401.1 ; Concussion 850.9 and Skin texture changes 782.8 [facility] [address], [place] [address]- 1447 Dec, [facility] [id number] [place] [address] 52071- 4184 Dec, [facility] [id number] [place] [address] 62314- 1007 Dec, [facility] [id number] [place] [address] 98936- 7165 Dec, [facility] [address] [address]- 5300 17 Dec, 2014 Affective disorder 296.90 [facility] [id number] [place] [address] 42135 2546 14 Dec, 2014 [facility] [id number] [place] [address] 64308 2546 10 Dec, 2014 Affective disorder 296.90 [facility] [id number] [place] [address] 45110 2543 04 Sep, 2014 [facility] [id number] [place] [address] 43444 2544 04 Dec, 2014 [facility] [id number] [place] [address] 85798- 4918 04 Dec, 2014 [facility] [id number] [place] [address] 21238- 9205 03 Dec, 2014 [facility] [id number] [place] [address] 65792- 4629 Nov, Affective disorder 296.90 [facility] [id number] [place] [address] 07924 2549 Nov, [facility] [id number] [place] [address] 14936- 2549 Nov, Affective disorder 296.90 [facility] [id number] [place] [address] 67515 2546 Nov, Diarrhea 787.91 [facility] [id number] [place] [address] 15417 2541 Nov, [facility] [id number] [place] [address] 23754 2546 Nov, Diarrhea 787.91 [facility] [id number] [place] [address] 35552 2549 Nov, Diarrhea 787.91 and Hyperlipidemia 272.4 [facility] [id number] [place] [address] 54186- 2597 Nov, Diarrhea 787.91 [facility] [id number] [place] [address] 55670- 5981 Nov, Affective disorder 296.90 [facility] [id number] [place] [address] 64931- 4662 Nov, Affective disorder 296.90 [facility] [id number] [place] [address] 00754- 6261 Nov, Affective disorder 296.90 [facility] [id number] [place] [address] 75219- 0220 Nov, [facility] [id number] [place] [address] 79746- 1296 Nov, [facility] [id number] [place] [address] 74307- 8046 Nov, [facility] [id number] [place] [address] 52910- 6284 Nov, Episodic mood disorder 296.90 [facility] [id number] [place] [address] 87893- 5294 Nov, [facility] [id number] [place] [address] 49923- 2572 Nov, [facility] [id number] [place] [address] 46772- 0385 Nov, [facility] [id number] [place] [address] 99937- 7096 Nov, [facility] [id number] [place] [address] 22366- 1257 Nov, [facility] [id number] [place] [address] 48152- 6144 Nov, Lymphedema 457.1 ; Hyperlipidemia 272.4 ; Essential hypertension, benign 401.1 and Numbness of toes 782.0 [facility] [id number] [place] [address] [place] [address]- 0009 Nov, Episodic mood disorder 296.90 [facility] [address] [id number] [place] [address]- 6294 Oct, 2014 [facility] [place] [facility] [address] [facility] [id number] [place] [address]- 1023 Oct, 2014 [facility] [address] [facility] [id number] [place] [address]- 7128 Oct, 2014 [facility] [place] [facility] [address] [facility] [id number] [place] [address]- 0723 Oct, 2014 [facility] [address] [place] [address]- 0073 Oct, 2014 [facility] [address] [id number] [place] [address]- 3499 Oct, 2014 [facility] [address] [place] [address]- 0930 Oct, 2014 [facility] [address] [id number] [place] [address]- 3139 Oct, [facility] [address] [place] [address]- 3700 Oct, Episodic mood disorder 296.90 [facility] [address] [id number] [place] [address]- 2305 Sep, [facility] [address] [id number] [address]- 8271 Sep, [facility] [id number], [place] [address]- 8606 Sep, [facility] [place] [facility] [address] [id number] [place] [address]- 7767 Sep, [facility] [place] [facility] [address] [facility] [id number] [address]- 7376 Sep, [facility] [place] [facility] [address] [id number] [place] [address] Sep, Episodic mood disorder 296.90 [facility] [id number] [address] Sep, Unspecified episodic mood disorder 296.90 [facility] [id number], [place] [address] Sep, [facility] [id number] [place] [address] Sep, [facility] [id number] [place] [address]- [address] 16 Sep, 2014 Episodic mood disorder 296.90 [facility] [id number] [place] [address]- [address] Sep, [facility] [id number] [place] [address]- [address] Sep, [facility] [id number] [place] [address]- [address] Sep, [facility] [id number] [place] [address]- [address] Sep, Hematemesis 578.0 and Vomiting 787.03 [facility] [id number], [place] [address] Sep, Episodic mood disorder 296.90 [facility] [id number] [address] 08 Sep, 2014 [facility] [id number] [address] Sep, [facility] [id number] [place] [address]- [address] Sep, Diabetes mellitus without mention of complication, type II or unspecified type, not stated as uncontrolled 250.00 and Other chronic pain 338.29 [facility] [address] [address] Sep, Episodic mood disorder 296.90 [facility] [address] [facility] [id number] [place] [address] Sep, [facility] [id number] [place] [address] Sep, Episodic mood disorder 296.90 [facility] [id number] [place] [address] Sep, [facility] [id number] [place] [address] August, [facility] [address] [id number] [place] [address] August, [facility] [id number] [place] [address] August, Episodic mood disorder 296.90 [facility] [id number] [place] [address] August, [facility] [id number] [place] [address] August, Unspecified episodic mood disorder 296.90 [facility] [id number] [place] [address] August, Vomiting 787.03 [facility] [id number], [place] [address] August, [facility] [id number] [place] [address] August, [facility] [address] [id number] [place] [address] August, [facility] [address] [id number] [place] [address] August, [facility] [address] [id number] [place] [address] August, [facility] [address] [id number] [place] [address] Jul, [facility] [place] [facility] [address] [id number] [place] [address]- 0728 14 Jul, 2014 [facility] [place] [facility] [address] [id number] [place] [address]- 49[address] Jul, [facility] [place] [facility] [address] [id number] [place] [address]- 0435 30 Jun, 2014 [facility] [place] [facility] [address] [id number] [place] [address]- 6536 30 Jun, 2014 [facility] [place] [facility] [address] [id number] [place] [address]- 1914 30 Jun, 2014 [facility] [place] [facility] [address] [id number] [place] [address]- 6212 30 Jun, 2014 [facility] [place] [facility] [address] [id number] [place] [address]- 2508 Jun, [facility] [place] [facility] [address] [id number] [place] [address]- 9125 30 Jun, 2014 [facility] [place] [facility] [address] [id number] [place] [address]- 4705 Jun, [facility] [place] [facility] [address] [id number] [place] [address]- 0837 30 Jun, 2014 [facility] [place] [facility] [address] [id number] [place] [address]- 6[address] Jun, [facility] [place] [facility] [address] [id number] [place] [address]- 4276 Jun, [facility] [place] [facility] [address] [id number] [place] [address]- 1691 Jun, [facility] [place] [facility] [address] [id number] [place] [address]- 6576 Jun, [facility] [place] [facility] [address] [id number] [place] [address]- 9437 Jun, [facility] [place] [facility] [address] [id number] [place] [address]- 5107 26 Jun, 2014 [facility] [place] [facility] [address] [id number] [place] [address]- 9552 24 Jun, 2014 [facility] [place] [facility] [address] [id number] [place] [address]- 2217 23 Jun, 2014 [facility] [place] [facility] [address] [id number] [place] [address]- 0554 23 Jun, 2014 [facility] [place] [facility] [address] [id number] [place] [address]- 4190 23 Jun, 2014 [facility] [place] [facility] [address] [id number] [place] [address]- 4298 23 Jun, 2014 [facility] [place] [facility] [address] [id number] [place] [address]- 4519 Jun, [facility] [place] [facility] [address] [id number] [place] [address]- 3975 Jun, [facility] [place] [facility] [address] [id number] [place] [address]- 6149 20 Jun, 2014 [facility] [place] [facility] [address] [id number] [place] [address]- 4676 20 Jun, 2014 [facility] [place] [facility] [address] [id number] [place] [address]- 8958 20 Jun, 2014 [facility] [place] [facility] [address] [id number] [place] [address]- 5253 20 Jun, 2014 [facility] [place] [facility] [address] [id number] [place] [address]- 3874 19 Jun, 2014 [facility] [place] [facility] [address] [id number] [place] [address]- 9293 19 Jun, 2014 [facility] [place] [facility] [address] [id number] [place] [address]- 5974 18 Jun, 2014 [facility] [place] [facility] [address] [id number] [place] [address]- 6926 18 Jun, 2014 [facility] [place] [facility] [address] [id number] [place] [address]- 0646 17 Jun, 2014 [facility] [place] [facility] [address] [id number] [place] [address]- 9537 17 Jun, 2014 [facility] [place] [facility] [address] [id number] [place] [address]- 6236 16 Jun, 2014 [facility] [place] [facility] [address] [id number] [place] [address]- 1373 16 Jun, 2014 [facility] [place] [facility] [address] [id number] [place] [address]- 9571 16 Jun, 2014 [facility] [place] [facility] [address] [id number] [place] [address]- 2008 16 Jun, 2014 [facility] [place] [facility] [address] [id number] [place] [address]- 6511 16 Jun, 2014 [facility] [place] [facility] [address] [id number] [place] [address]- 0254 16 Jun, 2014 [facility] [place] [facility] [address] [id number] [place] [address]- 6143 13 Jun, 2014 [facility] [place] [facility] [address] [id number] [place] [address]- 0011 13 Jun, 2014 [facility] [place] [facility] [address] [id number] [place] [address]- 2440 12 Jun, 2014 [facility] [place] [facility] [address] [id number] [place] [address]- 0092 12 Jun, 2014 [facility] [place] [facility] [address] [id number] [place] [address]- 2191 09 Jun, 2014 [facility] [place] [facility] [address] [id number] [place] [address]- 0927 09 Jun, 2014 [facility] [place] [facility] [address] [id number] [place] [address]- 4646 09 Jun, 2014 [facility] [place] [facility] [address] [id number] [place] [address]- 5896 Jun, [facility] [place] [facility] [address] [id number] [place] [address]- 0122 Jun, [facility] [place] [facility] [address] [id number] [place] [address]- 8977 Jun, [facility] [place] [facility] [address] [id number] [place] [address]- 0272 Jun, [facility] [place] [facility] [address] [id number] [place] [address]- 4782 Jun, [facility] [place] [facility] [address] [id number] [place] [address]- 2833 Jun, [facility] [place] [facility] [address] [id number] [place] [address]- 8782 Jun, [facility] [place] [facility] [address] [facility] [id number] [place] [address]- 6455 Jun, [facility] [place] [facility] [address] [id number] [place] [address]- 9737 Jun, [facility] [place] [facility] [address] [id number] [place] [address]- 4470 Jun, [facility] [place] [facility] [address] [id number] [place] [address]- 0066 Jun, [facility] [place] [facility] [address] [id number] [address]- 7842 Jun, [facility] [place] [facility] [address] [id number], [place] [address]- 1856 Jun, [facility] [place] [facility] [address] [id number] [place] [address]- 8431 May, [facility] [place] [facility] [address] [id number] [place] [address]- 6379 May, [facility] [place] [facility] [address] [id number] [place] [address]- 0330 May, [facility] [place] [facility] [address] [id number] [place] [address] 2546 25 May, 2014 [facility] [place] [facility] [address] [id number] [place] [address] 2546 May, 2014 [facility] [place] [facility] [address] [id number] [place] [address] 2546 24 May, 2014 [facility] [place] [facility] [address] [id number] [place] [address]- 2983 20 May, 2014 [facility] [place] [facility] [address] [id number] [place] [address]- 2545 May, 2014 [facility] [place] [facility] [address] [id number] [place] [address]- 2406 May, 2014 [facility] [place] [facility] [address] [facility] [id number] [place] [address]- 3768 20 May, 2014 [facility] [place] [facility] [address] [facility] [id number] [place] [address]- 9683 18 May, 2014 [facility] [place] [facility] [address] [facility] [id number] [place] [address]- 4485 18 May, 2014 [facility] [place] [facility] [address] [facility] [id number] [place] [address]- 1142 13 May, 2014 [facility] [place] [facility] [address] [facility] [id number] [place] [address]- 9554 13 May, 2014 [facility] [place] [facility] [address] [facility] [id number], [place] [address]- 254 11 May, 2014 [facility] [place] [facility] [address] [facility] [id number] [place] [address]- 2546 11 May, 2014 [facility] [place] [facility] [address] [facility] [id number] [place] [address]- 4426 11 May, 2014 [facility] [place] [facility] [address] [facility] [id number] [place] [address]- 6466 11 May, 2014 [facility] [place] [facility] [address] [facility] [id number] [place] [address]- 2443 May, 2014 [facility] [place] [facility] [address] [id number] [place] [address]- 6994 May, 2014 [facility] [place] [facility] [address] [id number] [place] [address]906 May, 2014 [facility] [place] [facility] [address] [id number] [place] [address]- 3934 May, 2014 [facility] [place] [facility] [address] [id number] [place] [address]- 0267 May, 2014 [facility] [place] [facility] [address] [id number] [place] [address]- 8986 May, 2014 [facility] [place] [facility] [address] [id number] [place] [address]- 9247 May, 2014 [facility] [place] [facility] [address] [id number] [place] [address]- 6762 May, 2014 [facility] [place] [facility] [address] [id number] [place] [address]- 4217 May, [facility] [place] [facility] [address] [id number] [place] [address]- 8545 Apr, [facility] [place] [facility] [address] [facility] [id number] [place] [address]- 6896 Apr, [facility] [place] [facility] [address] [id number] [place] [address]- 3727 Apr, [facility] [place] [facility] [address] [id number], [place] [address]- 6002 Apr, [facility] [place] [facility] [address] [id number] [place] [address]- 4383 Apr, [facility] [place] [facility] [address] [id number] [place] [address]- 5284 Apr, [facility] [place] [facility] [address] [facility] [id number] [place] [address]- 9735 Apr, [facility] [place] [facility] [address] [id number] [place] [address]- 2157 Apr, [facility] [place] [facility] [address] [id number] [place] [address]- 6442 Apr, [facility] [place] [facility] [address] [id number] [place] [address]- 6761 Apr, [facility] [place] [facility] [address] [id number] [place] [address]- 4118 Apr, [facility] [place] [facility] [address] [id number] [place] [address]- 8702 Apr, [facility] [place] [facility] [address] [id number] [place] [address]- 6414 Apr, [facility] [place] [facility] [address] [id number] [place] [address]- 2680 Apr, [facility] [place] [facility] [address] [id number], [place] [address]- 6461 Apr, [facility] [place] [facility] [address] [id number] [place] [address]- 3802 Apr, [facility] [place] [facility] [address] [id number], [place] [address]- 3158 Apr, [facility] [place] [facility] [address] [id number], [place] [address]- 0273 Apr, [facility] [place] [facility] [address] [id number], [place] [address]- 3937 Apr, [facility] [place] [facility] [address] [id number] [place] [address]- 4759 Apr, [facility] [place] [facility] [address] [id number] [place] [address]- 1465 Mar, [facility] [place] [facility] [address] [id number] [place] [address]- 9668 Mar, [facility] [place] [facility] [address] [id number] [place] [address]- 4719 24 Mar, 2014 [facility] [place] [facility] [address] [id number] [place] [address]- 0713 24 Mar, 2014 [facility] [place] [facility] [address] [id number] [place] [address]- 1096 Mar, [facility] [place] [facility] [address] [id number] [place] [address]- 1116 Mar, [facility] [place] [facility] [address] [id number] [place] [address]- 0554 18 Mar, 2014 [facility] [place] [facility] [address] [id number] [place] [address]- 3436 18 Mar, 2014 [facility] [place] [facility] [address] [id number] [place] [address]- 1692 15 Mar, 2014 [facility] [place] [facility] [address] [id number] [place] [address]- 7436 15 Mar, 2014 [facility] [place] [facility] [address] [id number] [place] [address]- 3235 15 Mar, 2014 [facility] [place] [facility] [address] [id number] [place] [address]- 6382 15 Mar, 2014 [facility] [place] [facility] [address] [id number] [place] [address]- 3552 Mar, [facility] [place] [facility] [address] [id number] [place] [address]- 5163 Mar, [facility] [place] [facility] [address] [id number] [place] [address]- 1544 Mar, [facility] [place] [facility] [address] [id number] [place] 0199 Mar, [facility] [place] [facility] [address] [id number] [place] [address]- 8646 Feb, [facility] [place] [facility] [address] [id number] [place] 1186 Feb, [facility] [place] [facility] [address] [id number] [place] [address]- 7075 Feb, [facility] [place] [facility] [address] [id number] [place] [address]- 3268 Feb, [facility] [place] [facility] [address] [id number] [place] [address]- 6518 Feb, [facility] [place] [facility] [address] [id number] [place] [address]- 4082 Feb, [facility] [place] [facility] [address] [id number] [place] [address]- 0854 19 Feb, 2014 [facility] [place] [facility] [address] [id number] [place] [address]- 8249 18 Feb, 2014 [facility] [place] [facility] [address] [id number] [place] [address]- 7904 18 Feb, 2014 [facility] [place] [facility] [address] [id number] [place] [address]- 7094 17 Feb, 2014 [facility] [place] [facility] [address] [id number] [place] [address]- 1605 17 Feb, 2014 [facility] [place] [facility] [address] [id number] [place] [address]- 7750 17 Feb, 2014 [facility] [place] [facility] [address] [id number] [place] [address]- 8837 17 Feb, 2014 [facility] [place] [facility] [address] [id number] [place] [address]- 3471 14 Feb, 2014 [facility] [place] [facility] [address] [id number] [place] [address]- 0919 14 Feb, 2014 [facility] [place] [facility] [address] [id number] [place] [address]- 0640 14 Feb, 2014 [facility] [place] [facility] [address] [id number] [place] [address]- 9452 14 Feb, 2014 [facility] [place] [facility] [address] [id number] [place] [address]- 5290 Feb, [facility] [place] [facility] [address] [id number] [place] [address]- 5066 Feb, [facility] [place] [facility] [address] [id number] [place] [address]- 2957 Feb, [facility] [place] [facility] [address] [id number] [place] 8210 Feb, [facility] [place] [facility] [address] [id number] [place] [address]- 2259 Jan, [facility] [place] [facility] [address] [id number] [place] [address]- 1080 Jan, [facility] [place] [facility] [address] [id number] [place] [address]- 6158 Jan, [facility] [place] [facility] [address] [id number] [place] [address]- 4138 Jan, [facility] [place] [facility] [address] [id number] [place] [address]- 3759 Jan, [facility] [place] [facility] [address] [id number] [place] [address]- 5171 Jan, [facility] [place] [facility] [address] [id number] [place] [address]- 2632 Jan, [facility] [place] [facility] [address] [id number], [place] [address]- 4972 Jan, [facility] [place] [facility] [address] [id number], [place] [address]- 5063 Jan, [facility] [place] [facility] [address] [id number] [place] [address]- 4864 Jan, [facility] [place] [facility] [address] [id number], [place] [address]- 7543 Jan, [facility] [place] [facility] [address] [id number] [place] [address]- 3658 Jan, [facility] [place] [facility] [address] [id number] [place] [address]- 4579 17 Jan, 2013 [facility] [place] [facility] [address] [id number] [place] [address]- 2230 17 Jan, 2014 [facility] [place] [facility] [address] [id number] [place] [address]- 4421 15 Jan, 2014 [facility] [place] [facility] [address] [id number] [place] [address]- 3643 15 Jan, 2014 [facility] [place] [facility] [address] [id number] [place] [address]- 7295 14 Jan, 2014 [facility] [place] [facility] [address] [id number] [place] [address]- 3501 14 Jan, 2014 [facility] [place] [facility] [address] [id number] [place] [address]- 0839 13 Jan, 2014 [facility] [place] [facility] [address] [id number] [place] [address]- 7274 13 Jan, 2014 [facility] [place] [facility] [address] [id number] [place] [address]- 6597 13 Jan, 2014 [facility] [place] [facility] [address] [id number] [place] [address]- 8413 13 Jan, 2014 [facility] [place] [facility] [address] [id number] [place] [address]- 2006 10 Jan, 2014 [facility] [place] [facility] [address] [id number] [place] [address]- 7670 02 Jan, 2014 [facility] [place] [facility] [address] [id number] [place] [address]- 9458 Jan, [facility] [place] [facility] [address] [id number] [place] [address]- 5942 25 Dec, 2013 [facility] [place] [facility] [address] [id number] [place] [address]- 6767 Dec, [facility] [place] [facility] [address] [id number] [place] [address]- 0445 Dec, [facility] [place] [facility] [address] [id number] [place] [address]- 3291 23 Sep, 2013 [facility] [place] [facility] [address] [id number] [place] [address]- 4496 19 Sep, 2013 [facility] [place] [facility] [address] [id number] [place] [address]- 3878 19 Sep, 2013 [facility] [place] [facility] [address] [id number] [place] [address] 2548 17 Sep, 2013 [facility] [place] [facility] [address] [id number] [place] [address]- 6490 17 Sep, 2013 [facility] [place] [facility] [address] [id number] [place] [address]- 4246 09 Sep, 2013 [facility] [place] [facility] [address] [id number] [place] [address]- 3438 09 Sep, 2013 [facility] [place] [facility] [address] [id number] [place] [address] 08 Sep, 2013 [facility] [place] [facility] [address] [id number] [place] [address] 08 Sep, 2013 [facility] [place] [facility] [address] [id number] [place] [address] 04 Sep, 2013 [facility] [place] [facility] [address] [id number] [place] [address] 8[address] 04 Sep, 2013 [facility] [place] [facility] [address] [id number] [address] 02 Sep, 2013 [facility] [place] [facility] [address] [id number] [place] [address] 25[address] 02 Sep, 2013 [facility] [place] [facility] [address] [id number] [place] [address] 02 Sep, 2013 [facility] [place] [facility] [address] [id number] [place] [address] 02 Sep, 2013 [facility] [place] [facility] [address] [id number] [place] [address] 7076 Nov, [facility] [place] [facility] [address] [id number] [place] [address] 7774 Nov, [facility] [place] [facility] [address] [id number] [place] [address] Nov, [facility] [place] [facility] [address] [id number] [place] [address] Nov, [facility] [place] [facility] [address] [id number] [place] [address] 46[address] Nov, [facility] [place] [facility] [address] [id number] [place] [address] 75[address] Nov, [facility] [place] [facility] [address] [id number] [place] [address]- 0460 Nov, [facility] [place] [facility] [address] [id number] [place] [address]- 7272 Nov, [facility] [place] [facility] [address] [id number] [place] [address]- 0835 Nov, [facility] [place] [facility] [address] [id number] [place] [address] 0[address] Nov, [facility] [place] [facility] [address] [id number] [place] [address]- 164[address] Nov, [facility] [place] [facility] [address] [id number] [place] [address] 0930 Nov, [facility] [place] [facility] [address] [id number] [place] [address]- 9988 Oct, [facility] [place] [facility] [address] [id number] [place] [address]- 4937 Oct, [facility] [place] [facility] [address] [id number] [place] [address]- 2967 Oct, [facility] [place] [facility] [address] [id number] [place] [address] 9704 Oct, [facility] [place] [facility] [address] [id number] [place] [address] 6[address] Oct, [facility] [place] [facility] [address] [id number] [place] [address] 1645 Oct, [facility] [place] [facility] [address] [id number] [place] [address]- [address] Oct, [facility] [place] [facility] [address] [id number] [place] [address] 3106 Oct, [facility] [place] [facility] [address] [id number] [place] [address] 8366 Oct, [facility] [place] [facility] [address] [id number] [place] [address]- 2089 Oct, [facility] [place] [facility] [address] [id number] [place] [address]- 9551 Oct, [facility] [place] [facility] [address] [id number] [place] [address]- 4625 Oct, [facility] [place] [facility] [address] [id number] [place] [address] 0632 Oct, [facility] [place] [facility] [address] [id number] [place] [address] 7[address] Oct, [facility] [place] [facility] [address] [id number] [place] [address]- [address]37 Oct, [facility] [place] [facility] [address] [id number] [place] [address] 1982 Oct, [facility] [place] [facility] [address] [id number] [place] [address]- 8935 Oct, [facility] [place] [facility] [address] [id number] [place] [address] 9780 Sep, [facility] [place] [facility] [address] [id number] [place] [address] 9724 Sep, [facility] [place] [facility] [address] [id number] [place] [address]- 4089 Sep, [facility] [place] [facility] [address] [id number] [place] [address]- 0009 Sep, [facility] [place] [facility] [address] [id number] [place] [address]- 6273 Sep, [facility] [place] [facility] [address] [id number] [place] [address]- 6148 Sep, [facility] [place] [facility] [address] [id number] [place] [address]- 9239 Sep, [facility] [place] [facility] [address] [id number] [place] [address]- 4252 Sep, [facility] [place] [facility] [address] [id number] [place] [address]- 1211 Sep, [facility] [place] [facility] [address] [id number] [place] [address]- 7006 Sep, [facility] [place] [facility] [address] [id number] [place] [address]- 0473 Sep, [facility] [place] [facility] [address] [id number] [place] [address]- 2358 Sep, [facility] [place] [facility] [address] [id number] [place] [address]- 7461 Sep, [facility] [place] [facility] [address] [id number], [place] [address]- [address] Sep, [facility] [place] [facility] [address] [id number], [place] [address] Sep, [facility] [place] [facility] [address] [id number] [place] [address]- 9991 Sep, [facility] [place] [facility] [address] [id number] [place] [address]- 0894 07 Sep, 2013 [facility] [place] [facility] [address] [id number] [place] [address]- 0443 07 Sep, 2013 [facility] [place] [facility] [address] [id number] [place] [address]- 7480 Sep, [facility] [place] [facility] [address] [id number] [place] [address]- 7269 Sep, [facility] [place] [facility] [address] [id number] [place] [address]- 2380 Sep, [facility] [place] [facility] [address] [id number] [place] [address]- 4334 Sep, [facility] [place] [facility] [address] [id number] [place] [address]- 8736 August, [facility] [place] [facility] [address] [id number] [place] [address]- 1426 August, [facility] [place] [facility] [address] [id number] [place] [address]- 0157 August, [facility] [place] [facility] [address] [id number] [place] [address]- 8948 August, [facility] [place] [facility] [address] [id number] [place] [address]- 6831 August, [facility] [place] [facility] [address] [id number] [place] [address]- 0557 August, [facility] [place] [facility] [address] [id number] [place] [address]- 5544 August, [facility] [place] [facility] [address] [id number] [place] [address]- 8396 August, [facility] [place] [facility] [address] [id number] [place] [address]- 2831 August, [facility] [place] [facility] [address] [id number] [place] [address]- 5167 August, [facility] [place] [facility] [address] [id number] [place] [address]- 6873 August, [facility] [place] [facility] [address] [id number] [place] [address]- 4428 Jul, [facility] [place] [facility] [address] [id number] [place] [address]- 9192 28 Jul, 2013 [facility] [place] [facility] [address] [id number] [place] [address]- 5761 Jul, [facility] [place] [facility] [address] [id number] [place] [address]- 5151 Jul, [facility] [place] [facility] [address] [id number] [place] [address]- 7414 Jul, [facility] [place] [facility] [address] [id number] [place] [address]- 5107 Jul, [facility] [place] [facility] [address] [id number] [place] [address]- 4886 Jul, [facility] [place] [facility] [address] [id number] [place] [address] Jul, [facility] [place] [facility] [address] [id number] [place] [address] 1315 Jul, [facility] [place] [facility] [address] [id number] [place] [address]- 8882 18 Jul, 2013 [facility] [place] [facility] [address] [id number] [place] [address]- 3685 16 Jul, 2013 [facility] [place] [facility] [address] [id number] [place] [address]- 2117 14 Jul, 2013 [facility] [place] [facility] [address] [id number] [place] [address]- 4779 14 Jul, 2013 [facility] [place] [facility] [address] [id number] [place] [address] 7167 11 Jul, 2013 [facility] [place] [facility] [address] [id number] [place] [address]- 5823 11 Jul, 2013 [facility] [place] [facility] [address] [id number] [place] [address]- 7160 10 Jul, 2013 [facility] [place] [facility] [address] [id number] [place] [address] 4040 Jul, [facility] [place] [facility] [address] [id number] [place] [address]- 2460 Jul, [facility] [place] [facility] [address] [id number] [place] [address]- 4247 Jul, [facility] [place] [facility] [address] [id number] [place] [address]- 1578 Jul, [facility] [place] [facility] [address] [id number] [place] [address]- 2077 Jul, [facility] [place] [facility] [address] [id number] [place] [address]- 5168 Jul, [facility] [place] [facility] [address] [id number] [place] [address]- 0568 Jul, [facility] [place] [facility] [address] [id number] [place] [address]- 9813 Jun, [facility] [place] [facility] [address] [id number] [place] [address]- 6774 Jun, [facility] [place] [facility] [address] [id number] [place] [address]- 5498 Jun, [facility] [place] [facility] [address] [id number] [place] [address]- 2242 Jun, [facility] [place] [facility] [address] [id number] [place] [address]- 7607 Jun, [facility] [place] [facility] [address] [id number] [place] [address]- 9445 Jun, [facility] [place] [facility] [address] [id number] [place] [address]- 7250 Jun, [facility] [place] [facility] [address] [id number] [place] [address]- 8204 Jun, [facility] [place] [facility] [address] [id number] [place] [address]- 0347 Jun, [facility] [place] [facility] [address] [id number] [place] [address]- 9350 18 Jun, 2013 [facility] [address] [id number] [place] [address]- 0253 Jun, [facility] [place] [facility] [address] [id number] [place] [address]- 5190 Jun, [facility] [place] [facility] [address] [id number] [place] [address]- 5462 May, [facility] [place] [facility] [address] [id number] [place] [address]- 1789 May, [facility] [place] [facility] [address] [id number] [place] [address]- 7011 Apr, [facility] [place] [facility] [address] [id number] [place] [address]- 7810 Apr, [facility] [place] [facility] [address] [id number] [place] [address]- 7425 Apr, [facility] [address] [id number] [place] [address]- 1908 Apr, [facility] [place] [facility] [address] [id number] [place] [address]- 6250 Apr, [facility] [address] [id number] [place] [address]- 0818 Apr, [facility] [place] [facility] [address] [id number] [place] [address]- 6127 Apr, [facility] [place] [facility] [address] [id number] [place] [address]- 9706 Apr, [facility] [place] [facility] [address] [id number] [place] [address]- 2277 Apr, [facility] [place] [facility] [address] [id number] [place] [address]- 1476 Apr, [facility] [place] [facility] [address] [id number] [place] [address]- 4679 Apr, [facility] [address] [id number] [place] [address]- 6285 Mar, [facility] [place] [facility] [address] [id number] [place] [address]- 4581 Mar, [facility] [place] [facility] [address] [id number] [place] [address]- 3645 Mar, [facility] [place] [facility] [address] [id number] [place] [address]- 6601 Mar, [facility] [place] [facility] [address] [id number] [place] [address]- 3053 Feb, [facility] [place] [facility] [address] [id number] [place] [address]- 5402 Feb, [facility] [place] [facility] [address] [id number] [place] [address]- 7991 Feb, [facility] [place] [facility] [address] [id number], [place] [address]- 3985 Feb, [facility] [place] [facility] [address] [id number], [place] [address]- 4085 Feb, [facility] [place] [facility] [address] [id number], [place] [address]- 0156 Feb, [facility] [place] [facility] [address] [id number], [place] [address]- 5836 Feb, [facility] [place] [facility] [address] [id number], [place] [address]- 0402 Feb, [facility] [place] [facility] [address] [id number], [place] [address]- 7840 Feb, [facility] [place] [facility] [address] [id number], [place] [address]- 3214 Feb, [facility] [place] [facility] [address] [id number], [place] [address]- 9407 Feb, [facility] [place] [facility] [address] [id number], [place] [address]- 8627 Jan, 2012 [facility] [place] [facility] [address] [id number] [place] [address]- 2329 25 Jan, 2012 [facility] [place] [facility] [address] [id number], [place] [address]- 4824 Jan, [facility] [place] [facility] [address] [id number] [place] [address]- 8021 11 Jan, 2012 [facility] [place] [facility] [address] [id number] [place] [address]- 2286 10 Jan, 2012 [facility] [place] [facility] [address] [id number] [place] [address]- 7710 10 Jan, 2013 [facility] [place] [facility] [address] [id number] [place] [address]- 2410 03 Jan, 2013 [facility] [place] [facility] [address] [facility] [id number], [place] [address]- 2631 02 Jan, 2013 [facility] [place] [facility] [address] [id number], [place] [address]- 6384 30 Sep, 2012 [facility] [place] [facility] [address] [id number] [place] [address]- 5856 25 Sep, 2012 [facility] [place] [facility] [address] [facility] [id number], [place] [address]- 0396 18 Sep, 2012 [facility] [place] [facility] [address] [id number], [place] [address]- 8822 17 Sep, 2012 [facility] [place] [facility] [address] [id number], [place] [address]- 2549 17 Sep, 2012 [facility] [place] [facility] [address] [id number], [place] [address]- 7983 16 Sep, 2012 [facility] [place] [facility] [address] [facility] [id number], [place] [address]- 2545 13 Sep, 2012 [facility] [place] [facility] [address] [facility] [id number], [place] [address]- 0391 11 Sep, 2012 [facility] [place] [facility] [address] [id number] [place] [address]- 1199 05 Dec, 2012 [facility] [place] [facility] [address] [id number] [place] [address]- 1605 Dec, [facility] [place] [facility] [address] [id number] [place] [address]- 2926 Nov, [facility] [place] [facility] [address] [id number] [place] [address]- 6517 Nov, [facility] [place] [facility] [address] [id number] [place] [address]- 1368 Nov, [facility] [place] [facility] [address] [id number] [place] [address]- 0436 Nov, [facility] [place] [facility] [address] [id number] [place] [address]- 7484 Nov, [facility] [place] [facility] [address] [id number] [place] [address]- 1082 Nov, [facility] [place] [facility] [address] [id number] [place] [address]- 1254 Nov, [facility] [place] [facility] [address] [id number] [place] [address]- 9910 Oct, [facility] [place] [facility] [address] [id number] [place] [address]- 2022 Oct, [facility] [place] [facility] [address] [id number] [place] [address]- 7655 Oct, [facility] [place] [facility] [address] [id number] [place] [address]- 1789 Oct, [facility] [place] [facility] [address] [id number] [place] [address]- 5124 Oct, [facility] [place] [facility] [address] [id number] [place] [address]- 3365 Oct, [facility] [place] [facility] [address] [id number] [place] [address]- 8752 Sep, [facility] [address] [id number] [place] [address]- 5512 28 Sep, 2012 [facility] [place] [facility] [address] [id number] [place] [address]- 6537 27 Sep, 2012 [facility] [place] [facility] [address] [id number] [place] [address]- 9894 14 Sep, 2012 [facility] [place] [facility] [address] [id number] [place] [address]- 7086 13 Sep, 2012 [facility] [address] [id number] [place] [address]- 9857 10 Sep, 2012 [facility] [place] [facility] [address] [id number] [place] [address]- 8385 07 Sep, 2012 [facility] [place] [facility] [address] [id number] [place] [address]- 9131 06 Sep, 2012 [facility] [place] [facility] [address] [id number] [place] [address]- 9522 05 Sep, 2012 [facility] [place] [facility] [address] [id number] [place] [address]- 7097 August, [facility] [place] [facility] [address] [id number] [place] [address]- 2430 August, [facility] [place] [facility] [address] [id number] [place] [address]- 1179 August, [facility] [place] [facility] [address] [id number], [place] [address]- 5734 August, [facility] [place] [facility] [address] [id number] [place] [address]- 2503 August, [facility] [place] [facility] [address] [id number] [place] [address]- 9898 August, [facility] [place] [facility] [address] [id number] [place] [address]- 4952 August, [facility] [place] [facility] [address] [id number] [place] [address]- 1100 August, [facility] [address] [id number] [place] [address]- 1279 Jul, [facility] [address] [facility] [id number] [place] [address]- 4403 Jul, [address] [id number] Jul [facility] [address] [id number] [place] [address]- 1321 Jun, [facility] [address] [id number] [place] [address]- 4825 Jun, [facility] [address] [id number] [place] [address]- 9209 Jun, [facility] [address] [facility] [id number] [place] [address]- 8585 Jun, [facility] [address] [id number] [place] [address]- 7513 Jun, [facility] [address] [id number] [place] [address]- 3361 Jun, [facility] [address] [facility] [id number] [place] [address]- 9692 May, [facility] [address] [id number] [place] [address]- 8620 May, [facility] [address] [id number] [place] [address]- 2109 May, [facility] [address] [id number] [place] [address]- 0780 May, [facility] [address] [id number] [place] [address]- 7203 May, [facility] [address] [facility] [id number] [place] [address]- 9170 Apr, [facility] [address] [id number] [place] [address]- 5447 15 Apr, 2012 [facility] [place] [facility] [address] [id number] [place] [address]- 2166 Apr, [facility] [place] [facility] [address] [id number] [place] [address] 2546 09 Apr, 2012 [facility] [place] [facility] [address] [id number] [place] [address]- 3916 Apr, [facility] [place] [facility] [address] [id number] [place] [address]- 2271 Apr, [facility] [place] [facility] [address] [id number] [place] [address]- 5216 26 Mar, 2012 [facility] [place] [facility] [address] [id number] [place] [address]- 8341 20 Mar, 2012 [facility] [place] [facility] [address] [id number] [place] [address]- 4991 20 Mar, 2012 [facility] [address] [id number] [place] [address]- 0340 19 Mar, 2012 [facility] [place] [facility] [address] [id number] [place] [address]- 2545 19 Mar, [address] [facility] [place] [facility] [address] [id number] [place] [address]- 8356 18 Mar, 2012 [facility] [place] [facility] [address] [id number] [place] [address]- 2546 18 Mar, 2012 [facility] [place] [facility] [address] [id number] [place] [address] 2546 10 Mar, 2012 [facility] [place] [facility] [address] [id number] [place] [address] 2546 10 Mar, 2012 [facility] [place] [facility] [address] [id number] [place] [address]- 2546 05 Mar, 2012 [facility] [place] [facility] [address] [id number] [place] [address]- 0908 Mar, [facility] [place] [facility] [address] [id number] [place] [address]- 7177 Feb, [facility] [place] [facility] [address] [id number] [place] [address]- 6452 Feb, [facility] [place] [facility] [address] [facility] [id number] [place] [address]- 5587 Feb, [facility] [place] [facility] [address] [id number], [place] [address]- 8950 Feb, [facility] [place] [facility] [address] [id number] [place] [address]- 4268 Feb, [facility] [place] [facility] [address] [id number], [place] [address]- 0818 Feb, [facility] [place] [facility] [address] [id number] [place] [address]- 5044 Feb, [facility] [place] [facility] [address] [id number], [place] [address]- 7274 Feb, [facility] [place] [facility] [address] [id number], [place] [address]- 9400 Feb, [facility] [place] [facility] [address] [facility] [id number], [place] [address]- 1681 Feb, [facility] [place] [facility] [address] [id number], [place] [address]- 2102 Feb, [facility] [place] [facility] [address] [id number], [place] [address]- 5243 Jan, [facility] [place] [facility] [address] [id number], [place] [address]- 5221 Jan, [facility] [place] [facility] [address] [facility] [id number], [place] [address]- 5261 Jan, [facility] [place] [facility] [address] [id number], [place] [address]- 3615 Jan, [facility] [place] [facility] [address] [id number] [place] [address]- 0079 Jan, [facility] [place] [facility] [address] [id number] [place] [address]- 5372 Jan, [facility] [place] [facility] [address] [id number] [place] [address]- 2386 Jan, [facility] [place] [facility] [address] [id number] [place] [address]- 3329 24 Dec, 2011 [facility] [place] [facility] [address] [id number] [place] [address]- 9399 17 Dec, 2011 [facility] [place] [facility] [address] [id number] [place] [address]- 5731 13 Dec, 2011 [facility] [place] [facility] [address] [id number] [place] [address]- 1601 Dec, [facility] [place] [facility] [address] [id number] [place] [address]- 5968 Nov, [facility] [place] [facility] [address] [id number] [place] [address]- 5194 Nov, [facility] [place] [facility] [address] [id number] [place] [address]- 1072 Nov, [facility] [place] [facility] [address] [id number] [place] [address]- 6364 15 Nov, 2011 [facility] [place] [facility] [address] [id number] [place] [address]- 6180 14 Nov, 2011 [facility] [place] [facility] [address] [id number] [place] [address]- 1788 Nov, [facility] [place] [facility] [address] [id number] [place] [address]- 1896 Nov, [facility] [place] [facility] [address] [id number] [place] [address]- 8561 Nov, [facility] [place] [facility] [address] [id number] [place] [address]- 0673 Nov, [facility] [place] [facility] [address] [id number] [place] [address]- 9917 Nov, [facility] [place] [facility] [address] [id number] [place] [address]- 9490 Nov, [facility] [place] [facility] [address] [id number] [place] [address]- 8248 Nov, [facility] [place] [facility] [address] [id number] [place] [address]- 2950 Nov, [facility] [place] [facility] [address] [id number] [place] [address]- 8661 Oct, [facility] [place] [facility] [address] [id number] [place] [address]- 6646 Oct, [facility] [place] [facility] [address] [id number] [place] [address]- 4243 Oct, [facility] [place] [facility] [address] [id number] [place] [address]- 4907 Oct, [facility] [place] [facility] [address] [id number] [place] [address]- 1750 Oct, [facility] [place] [facility] [address] [id number] [place] [address]- 6179 Oct, [facility] [place] [facility] [address] [id number] [place] [address]- 0540 Oct, [facility] [place] [facility] [address] [id number] [place] [address]- 7001 Oct, [facility] [place] [facility] [address] [id number] [place] [address]- 5672 Oct, [facility] [place] [facility] [address] [id number] [place] [address]- 7256 Sep, [facility] [place] [facility] [address] [id number] [place] [address]- 1523 Sep, [facility] [place] [facility] [address] [id number] [place] [address]- 6196 Sep, [facility] [place] [facility] [address] [id number] [place] [address]- 2966 Sep, [facility] [place] [facility] [address] [id number] [place] [address]- 9436 Sep, [facility] [place] [facility] [address] [id number] [place] [address]- 0808 Sep, [facility] [place] [facility] [address] [id number] [place] [address]- 1782 Sep, [facility] [place] [facility] [address] [id number] [place] [address]- 4780 Sep, [facility] [place] [facility] [address] [id number] [place] [address]- 4783 August, [facility] [place] [facility] [address] [id number] [place] [address] August, [facility] [place] [facility] [address] [id number] [place] [address] August, [facility] [place] [facility] [address] [id number] [place] [address] August, [facility] [place] [facility] [address] [id number] [place] [address] August, [facility] [place] [facility] [address] [id number] [place] [address] August, [facility] [place] [facility] [address] [id number] [place] [address] August, [facility] [place] [facility] [address] [id number] [place] [address] August, [facility] [place] [facility] [address] [id number] [place] [address] August, [facility] [place] [facility] [address] [id number] [place] [address] August, [facility] [place] [facility] [address] [facility] [id number] [place] [address] August, [facility] [address] [facility] [id number] [place] [address] August, [facility] [address] [facility] [id number] [place] [address] Oct, IMMUNIZATIONS No Known Immunizations SOCIAL HISTORY Never Assessed REASON FOR VISIT Refill Request PLAN OF CARE VITAL SIGNS MEDICATIONS Medication Instructions Dosage Frequency Start Date End Date Duration Status Tylenol 325 MG Orally every 6 hrs 2 tablets as needed 6h Oct, Active RESULTS No Results PROCEDURES No [...] Surgical History bladder surgery Hospitalization History [facility] for right groin pain 05/2011 Hospitalization History [facility] for wound on buttocks 08/2012 [...]
--- OUTSIDE RECORDS SUMMARY | 2018-02-11 12:48 | XMS REPORT ---
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 F39 [facility] [id number] [place] [address] 89315 -4336 Jul, [facility] [address] [place] [address]- 4292 31 Jun, 2015 Elevated AST (SGOT) R74.0 [place] [id number] [place] [address] 87111- 3760 31 Jun, 2015 [place] [id number] [place] [address] 70083- 2626 24 Jun, 2015 Upper respiratory infection J06.9 and Type 2 diabetes mellitus with diabetic polyneuropathy E11.42 [facility] [id number] [place] [address] 06028- 3621 Jun, Unspecified mood [affective] disorder [place] [id number] [place] [address] 68254- 4873 Jun, [place] [id number] [place] [address] 22395- 7197 Jun, Unspecified mood [affective] disorder [place] [id number] [place] [address] 67362- 7708 Jun, Unspecified mood [affective] disorder [place] [id number] [place] [address] 27894- 7266 18 Jun, 2015 Unspecified mood [affective] disorder [place] [id number] [place] [address] 70109- 5151 15 Jun, 2015 Unspecified mood [affective] disorder [place] [id number] [place] [address] 52297- 6367 14 Jun, 2015 [place] [id number] [place] [address] 86517- 1100 09 Jun, 2015 Type 2 diabetes mellitus with hyperglycemia E11.65 ; Oxygen dependent Z99.81 ; Folliculitis L73.9 ; Dysuria R30.0 ; Encounter for contraceptive management Z30.9 and Dog bite W54.0XXA [facility] [id number] [place] [address] 90381- 6353 04 Jun, 2015 Unspecified mood [affective] disorder F39 [facility] [id number] [place] [address] 61228- 9724 Jun, Type 2 diabetes mellitus with hyperglycemia E11.65 [facility] [id number] [place] [address] 35768- 2696 May, Unspecified mood [affective] disorder F39 [facility] [id number] [place] [address] 29280- 3958 May, [facility] [id number] [place] [address] 01728- 8763 May, [facility] [id number] [place] [address] 04248- 7759 May, [facility] [id number] [place] [address] 86400- 6507 Apr, [facility] [id number] [place] [address] 45210- 0009 Apr, Unspecified mood [affective] disorder F39 [facility] [id number] [place] [address] 00269- 2554 Apr, [facility] [id number] [place] [address] 26549- 3502 Apr, [facility] [id number] [place] [address] 24095- 4826 Apr, [facility] [id number] [place] [address] 59150- 0598 Apr, Dysuria R30.0 and Well woman exam (no gynecological exam) Z00.00 [facility] [id number] [place] [address] 94365- 9870 Mar, [facility] [id number] [place] [address] 65030- 3976 Mar, [facility] [id number] [place] [address] [id number] Mar, Dental examination Z01.20 [facility] [id number] [place] [address] 24936- 9759 Mar, Chronic diarrhea K52.9 ; Intractable vomiting with nausea, vomiting of unspecified type R11.2 ; Cellulitis, unspecified cellulitis site L03.90 ; Type 2 diabetes mellitus with diabetic polyneuropathy E11.42 and Postinflammatory hyperpigmentation L81.0 [facility] [id number] [place] [address] 91272- 5666 Mar, Unspecified mood [affective] disorder F39 [facility] [id number] [place] [address] 76063- 6919 Mar, Unspecified mood [affective] disorder F39 [facility] [id number] [place] [address] 95241- 1182 Mar, [facility] [id number] [place] [address] 91447- 5420 Mar, [facility] [id number] [place] [address] 22141- 1553 Mar, [facility] [id number] [place] [address] 85680- 2036 Mar, [facility] [id number] [place] [address] 28590- 9775 Mar, [facility] [id number] [place] [address] 53881- 3646 Mar, [facility] [id number] [place] [address] 44236- 8140 Feb, Unspecified mood [affective] disorder F39 [facility] [id number] [place] [address] 55482- 7887 Feb, [facility] [id number] [place] [address] 66394- 2924 Feb, [facility] [id number] [place] [address] 16563- 7034 Jan, Unspecified mood [affective] disorder F39 [facility] [address] [id number] [id number] Jan, Encounter for dental examination Z01.20 [facility] [id number] [place] [address] 93662- 2827 Jan, [facility] [id number] [place] [address] 13885- 8545 Jan, [facility] [id number] [place] [address] 93317- 5087 Jan, [facility] [id number] [place] [address] 67401- 9074 Jan, [facility] [id number] [place] [address] 54833- 4317 Jan, [facility] [id number] [place] [address] 74036- 6803 Jan, Abdominal abscess K65.1 and Dental caries K02.9 [facility] [id number] [place] [address] 15100- 8478 Jan, [facility] [id number] [place] [address] 36336- 6420 Dec, Diabetes with neurological manifestations, type II or unspecified type, not stated as uncontrolled 250.60 ; Essential hypertension, benign 401.1 ; Concussion 850.9 and Skin texture changes 782.8 [facility] [address], [place] [address]- 7421 Dec, [facility] [id number] [place] [address] 42537- 9409 Dec, [facility] [id number] [place] [address] 45872- 0083 Dec, [facility] [id number] [place] [address] 63916- 9392 Dec, [facility] [address], [place] [address]- 6539 17 Dec, 2014 Affective disorder 296.90 [facility] [id number] [place] [address] 33923 2546 14 Dec, 2014 [facility] [id number] [place] [address] 17804 2546 10 Dec, 2014 Affective disorder 296.90 [facility] [id number] [place] [address] 63317 2541 04 Sep, 2014 [facility] [id number] [place] [address] 82545 254 04 Dec, 2014 [facility] [id number] [place] [address] 12690- 9736 04 Dec, 2014 [facility] [id number] [place] [address] 50630- 7906 03 Dec, 2014 [facility] [id number] [place] [address] 30863- 1115 Nov, Affective disorder 296.90 [facility] [id number] [place] [address] 33509 2545 Nov, [facility] [id number] [place] [address] 75840- 2543 Nov, Affective disorder 296.90 [facility] [id number] [place] [address] 65461 2546 Nov, Diarrhea 787.91 [facility] [id number] [place] [address] 17940 2549 Nov, [facility] [id number] [place] [address] 61606 2546 Nov, Diarrhea 787.91 [facility] [id number] [place] [address] 33695 2542 Nov, Diarrhea 787.91 and Hyperlipidemia 272.4 [facility] [id number] [place] [address] 67620- 5727 Nov, Diarrhea 787.91 [facility] [id number] [place] [address] 08705- 6377 Nov, Affective disorder 296.90 [facility] [id number] [place] [address] 01492- 1905 Nov, Affective disorder 296.90 [facility] [id number] [place] [address] 19966- 7104 Nov, Affective disorder 296.90 [facility] [id number] [place] [address] 24518- 4023 Nov, [facility] [id number] [place] [address] 43042- 5498 Nov, [facility] [id number] [place] [address] 72842- 4640 Nov, [facility] [id number] [place] [address] 88583- 2855 Nov, Episodic mood disorder 296.90 [facility] [id number] [place] [address] 53036- 6368 Nov, [facility] [id number] [place] [address] 74696- 9264 Nov, [facility] [id number] [place] [address] 62661- 7523 Nov, [facility] [id number] [place] [address] 67195- 0909 Nov, [facility] [id number] [place] [address] 99298- 3634 Nov, [facility] [id number] [place] [address] 97701- 0750 Nov, Lymphedema 457.1 ; Hyperlipidemia 272.4 ; Essential hypertension, benign 401.1 and Numbness of toes 782.0 [facility] [id number] [place] [address] [place] [address]- 8321 Nov, Episodic mood disorder 296.90 [facility] [address] [id number] [place] [address]- 0819 Oct, 2014 [facility] [place] [facility] [address] [facility] [id number] [place] [address] Oct, 2014 [facility] [address] [facility] [id number] [place] [address] Oct, 2014 [facility] [place] [facility] [address] [facility] [id number] [place] [address] Oct, 2014 [facility] [id number] [place] [address] Oct, 2014 [facility] [address] [id number] [place] [address] Oct, 2014 [facility] [id number] [place] [address] Oct, 2014 [facility] [address] [id number] [address] Oct, [facility] [id number] [address] Oct, Episodic mood disorder 296.90 [facility] [address] [id number] [address] Sep, [facility] [address] [id number] [address] Sep, [facility] [address] [id number] [address] Sep, [facility] [place] [facility] [address] [id number] [place] [address] Sep, [facility] [place] [facility] [address] [facility] [id number] [address] Sep, [facility] [place] [facility] [address] [id number] [address] Sep, Episodic mood disorder 296.90 [facility] [id number] [address] Sep, Unspecified episodic mood disorder 296.90 [facility] [id number] [address] Sep, [facility] [id number] [place] [address] Sep, [facility] [id number] [place] [address]- [address] 16 Sep, 2014 Episodic mood disorder 296.90 [facility] [id number] [place] [address]- [address] Sep, [facility] [id number] [place] [address]- [address] Sep, [facility] [id number] [place] [address]- [address] Sep, [facility] [id number] [place] [address] Sep, Hematemesis 578.0 and Vomiting 787.03 [facility] [id number] [address] Sep, Episodic mood disorder 296.90 [facility] [id number] [address] 08 Sep, 2014 [facility] [facility] [id number] [address] Sep, [facility] [id number] [place] [address] Sep, Diabetes mellitus without mention of complication, type II or unspecified type, not stated as uncontrolled 250.00 and Other chronic pain 338.29 [facility] [address] [address] Sep, Episodic mood disorder 296.90 [facility] [address] [facility] [id number] [place] [address] Sep, [facility] [address] [address] Sep, Episodic mood disorder 296.90 [facility] [address] [address] 2546 Sep, [facility] [address] [address] August, [facility] [address] [id number] [address] August, [facility] [address] [address] August, Episodic mood disorder 296.90 [facility] [address] [address] August, [facility] [address] [address]- [address] August, Unspecified episodic mood disorder 296.90 [facility] [address] [address] August, Vomiting 787.03 [facility] [address] [address] August, [facility] [address] [address]- [address] August, [facility] [address] [id number] [address]- 60[address] August, [facility] [address] [id number] [address]- 5[address] August, [facility] [address] [id number] [address]- 2546 August, [facility] [address] [id number] [address]- [address] Jul, [facility] [place] [facility] [address] [id number] [place] [address]- 7707 14 Jul, 2014 [facility] [place] [facility] [address] [id number] [place] [address]- 5266 Jul, [facility] [place] [facility] [address] [id number] [place] [address]- 0354 30 Jun, 2014 [facility] [place] [facility] [address] [id number] [place] [address]- 3336 30 Jun, 2014 [facility] [place] [facility] [address] [id number] [place] [address]- 7909 30 Jun, 2014 [facility] [place] [facility] [address] [id number] [place] [address]- 9326 30 Jun, 2014 [facility] [place] [facility] [address] [id number] [place] [address]- 3501 Jun, [facility] [place] [facility] [address] [id number] [place] [address]- 6944 30 Jun, 2014 [facility] [place] [facility] [address] [id number] [place] [address]- 4788 Jun, [facility] [place] [facility] [address] [id number] [place] [address]- 1038 30 Jun, 2014 [facility] [place] [facility] [address] [id number] [place] [address]- 5814 Jun, [facility] [place] [facility] [address] [id number] [place] [address]- 8345 Jun, [facility] [place] [facility] [address] [id number] [place] [address]- 9327 Jun, [facility] [place] [facility] [address] [id number] [place] [address]- 6516 Jun, [facility] [place] [facility] [address] [id number] [place] [address]- 4059 Jun, [facility] [place] [facility] [address] [id number] [place] [address]- 4567 26 Jun, 2014 [facility] [place] [facility] [address] [id number] [place] [address]- 4813 24 Jun, 2014 [facility] [place] [facility] [address] [id number] [place] [address]- 3353 23 Jun, 2014 [facility] [place] [facility] [address] [id number] [place] [address]- 4599 23 Jun, 2014 [facility] [place] [facility] [address] [id number] [place] [address]- 7749 23 Jun, 2014 [facility] [place] [facility] [address] [id number] [place] [address]- 8248 23 Jun, 2014 [facility] [place] [facility] [address] [id number] [place] [address]- 8589 Jun, [facility] [place] [facility] [address] [id number] [place] [address]- 3605 Jun, [facility] [place] [facility] [address] [id number] [place] [address]- 0452 20 Jun, 2014 [facility] [place] [facility] [address] [id number] [place] [address]- 9884 20 Jun, 2014 [facility] [place] [facility] [address] [id number] [place] [address]- 9967 20 Jun, 2014 [facility] [place] [facility] [address] [id number] [place] [address]- 3058 20 Jun, 2014 [facility] [place] [facility] [address] [id number] [place] [address]- 0729 19 Jun, 2014 [facility] [place] [facility] [address] [id number] [place] [address]- 8266 19 Jun, 2014 [facility] [place] [facility] [address] [id number] [place] [address]- 0905 18 Jun, 2014 [facility] [place] [facility] [address] [id number] [place] [address]- 9016 18 Jun, 2014 [facility] [place] [facility] [address] [id number] [place] [address]- 7746 17 Jun, 2014 [facility] [place] [facility] [address] [id number] [place] [address]- 2225 17 Jun, 2014 [facility] [place] [facility] [address] [id number] [place] [address]- 3446 16 Jun, 2014 [facility] [place] [facility] [address] [id number] [place] [address]- 6923 16 Jun, 2014 [facility] [place] [facility] [address] [id number] [place] [address]- 8163 16 Jun, 2014 [facility] [place] [facility] [address] [id number] [place] [address]- 5543 16 Jun, 2014 [facility] [place] [facility] [address] [id number] [place] [address]- 9294 16 Jun, 2014 [facility] [place] [facility] [address] [id number] [place] [address]- 2959 16 Jun, 2014 [facility] [place] [facility] [address] [id number] [place] [address]- 2349 13 Jun, 2014 [facility] [place] [facility] [address] [id number] [place] [address]- 7787 13 Jun, 2014 [facility] [place] [facility] [address] [id number] [place] [address]- 4584 12 Jun, 2014 [facility] [place] [facility] [address] [id number] [place] [address]- 0148 12 Jun, 2014 [facility] [place] [facility] [address] [id number] [place] [address]- 6541 09 Jun, 2014 [facility] [place] [facility] [address] [id number] [place] [address]- 0756 09 Jun, 2014 [facility] [place] [facility] [address] [id number] [place] [address]- 5556 09 Jun, 2014 [facility] [place] [facility] [address] [id number] [place] [address]- 3916 Jun, [facility] [place] [facility] [address] [id number] [place] [address]- 5869 Jun, [facility] [place] [facility] [address] [id number] [place] [address]- 8420 Jun, [facility] [place] [facility] [address] [id number] [place] [address]- 2712 Jun, [facility] [place] [facility] [address] [id number] [place] [address]- 7287 Jun, [facility] [place] [facility] [address] [id number] [place] [address]- 4988 Jun, [facility] [place] [facility] [address] [id number] [place] [address]- 0647 Jun, [facility] [place] [facility] [address] [facility] [id number] [place] [address]- 6027 Jun, [facility] [place] [facility] [address] [id number] [place] [address]- 6473 Jun, [facility] [place] [facility] [address] [id number] [place] [address]- 8492 Jun, [facility] [place] [facility] [address] [id number] [place] [address]- 4341 Jun, [facility] [place] [facility] [address] [id number], [place] [address]- 7856 Jun, [facility] [place] [facility] [address] [id number], [place] [address]- 2498 Jun, [facility] [place] [facility] [address] [id number] [place] [address]- 7628 May, [facility] [place] [facility] [address] [id number] [place] [address]- 4752 May, [facility] [place] [facility] [address] [id number] [place] [address]- 4352 May, [facility] [place] [facility] [address] [id number] [place] [address] 2546 25 May, 2014 [facility] [place] [facility] [address] [id number] [place] [address] 2546 May, 2014 [facility] [place] [facility] [address] [id number] [place] [address] 2546 24 May, 2014 [facility] [place] [facility] [address] [id number] [place] [address]- 2053 20 May, 2014 [facility] [place] [facility] [address] [id number] [place] [address]- 2548 May, 2014 [facility] [place] [facility] [address] [id number] [place] [address]- 1884 May, 2014 [facility] [place] [facility] [address] [facility] [id number] [place] [address]- 4168 20 May, 2014 [facility] [place] [facility] [address] [facility] [id number] [place] [address]- 4796 18 May, 2014 [facility] [place] [facility] [address] [facility] [id number] [place] [address]- 1545 18 May, 2014 [facility] [place] [facility] [address] [facility] [id number] [place] [address]- 9974 13 May, 2014 [facility] [place] [facility] [address] [facility] [id number] [place] [address]- 3494 13 May, 2014 [facility] [place] [facility] [address] [facility] [id number], [place] [address]- 2545 11 May, 2014 [facility] [place] [facility] [address] [facility] [id number] [place] [address]- 2546 11 May, 2014 [facility] [place] [facility] [address] [facility] [id number] [place] [address]- 8506 11 May, 2014 [facility] [place] [facility] [address] [facility] [id number] [place] [address]- 9706 11 May, 2014 [facility] [place] [facility] [address] [facility] [id number] [place] [address]- 4962 May, 2014 [facility] [place] [facility] [address] [id number] [place] [address]- 7941 May, 2014 [facility] [place] [facility] [address] [id number] [place] 4626 May, 2014 [facility] [place] [facility] [address] [id number] [place] [address]- 4195 May, 2014 [facility] [place] [facility] [address] [id number] [place] [address]- 1315 May, 2014 [facility] [place] [facility] [address] [id number] [place] [address]- 8363 May, 2014 [facility] [place] [facility] [address] [id number] [place] [address]- 8561 May, 2014 [facility] [place] [facility] [address] [id number] [place] [address]- 4906 May, 2014 [facility] [place] [facility] [address] [id number] [place] [address]- 0101 May, [facility] [place] [facility] [address] [id number] [place] [address]- 7181 Apr, [facility] [place] [facility] [address] [facility] [id number] [place] [address]- 8953 Apr, [facility] [place] [facility] [address] [id number] [place] [address]- 8657 Apr, [facility] [place] [facility] [address] [id number], [place] [address]- 6547 Apr, [facility] [place] [facility] [address] [id number] [place] [address]- 8194 Apr, [facility] [place] [facility] [address] [id number] [place] [address]- 8110 Apr, [facility] [place] [facility] [address] [facility] [id number] [place] [address]- 6155 Apr, [facility] [place] [facility] [address] [id number] [place] [address]- 9519 Apr, [facility] [place] [facility] [address] [id number] [place] [address]- 1119 Apr, [facility] [place] [facility] [address] [id number] [place] [address]- 6437 Apr, [facility] [place] [facility] [address] [id number] [place] [address]- 4647 Apr, [facility] [place] [facility] [address] [id number] [place] [address]- 4675 Apr, [facility] [place] [facility] [address] [id number] [place] [address]- 1994 Apr, [facility] [place] [facility] [address] [id number] [place] [address]- 7391 Apr, [facility] [place] [facility] [address] [id number], [place] [address]- 2862 Apr, [facility] [place] [facility] [address] [id number] [place] [address]- 0770 Apr, [facility] [place] [facility] [address] [id number], [place] [address]- 9448 Apr, [facility] [place] [facility] [address] [id number], [place] [address]- 1297 Apr, [facility] [place] [facility] [address] [id number], [place] [address]- 3088 Apr, [facility] [place] [facility] [address] [id number] [place] [address]- 2250 Apr, [facility] [place] [facility] [address] [id number] [place] [address]- 4290 Mar, [facility] [place] [facility] [address] [id number] [place] [address]- 5458 Mar, [facility] [place] [facility] [address] [id number] [place] [address]- 2611 24 Mar, 2014 [facility] [place] [facility] [address] [id number] [place] [address]- 9855 24 Mar, 2014 [facility] [place] [facility] [address] [id number] [place] [address]- 2086 Mar, [facility] [place] [facility] [address] [id number] [place] [address]- 4996 Mar, [facility] [place] [facility] [address] [id number] [place] [address]- 5699 18 Mar, 2014 [facility] [place] [facility] [address] [id number] [place] [address]- 6884 18 Mar, 2014 [facility] [place] [facility] [address] [id number] [place] [address]- 6073 15 Mar, 2014 [facility] [place] [facility] [address] [id number] [place] [address]- 3948 15 Mar, 2014 [facility] [place] [facility] [address] [id number] [place] [address]- 7873 15 Mar, 2014 [facility] [place] [facility] [address] [id number] [place] [address]- 7486 15 Mar, 2014 [facility] [place] [facility] [address] [id number] [place] [address]- 2231 Mar, [facility] [place] [facility] [address] [id number] [place] [address]- 6939 Mar, [facility] [place] [facility] [address] [id number] [place] [address]- 6089 Mar, [facility] [place] [facility] [address] [id number] [place] 8839 Mar, [facility] [place] [facility] [address] [id number] [place] [address]- 0165 Feb, [facility] [place] [facility] [address] [id number] [place] 2219 Feb, [facility] [place] [facility] [address] [id number] [place] [address]- 2022 Feb, [facility] [place] [facility] [address] [id number] [place] [address]- 2762 Feb, [facility] [place] [facility] [address] [id number] [place] [address]- 8321 Feb, [facility] [place] [facility] [address] [id number] [place] [address]- 7990 Feb, [facility] [place] [facility] [address] [id number] [place] [address]- 4966 19 Feb, 2014 [facility] [place] [facility] [address] [id number] [place] [address]- 7197 18 Feb, 2014 [facility] [place] [facility] [address] [id number] [place] [address]- 7133 18 Feb, 2014 [facility] [place] [facility] [address] [id number] [place] [address]- 7201 17 Feb, 2014 [facility] [place] [facility] [address] [id number] [place] [address]- 0757 17 Feb, 2014 [facility] [place] [facility] [address] [id number] [place] [address]- 5522 17 Feb, 2014 [facility] [place] [facility] [address] [id number] [place] [address]- 9111 17 Feb, 2014 [facility] [place] [facility] [address] [id number] [place] [address]- 8914 14 Feb, 2014 [facility] [place] [facility] [address] [id number] [place] [address]- 1882 14 Feb, 2014 [facility] [place] [facility] [address] [id number] [place] [address]- 8249 14 Feb, 2014 [facility] [place] [facility] [address] [id number] [place] [address]- 8889 14 Feb, 2014 [facility] [place] [facility] [address] [id number] [place] [address]- 8746 Feb, [facility] [place] [facility] [address] [id number] [place] [address]- 9017 Feb, [facility] [place] [facility] [address] [id number] [place] [address]- 8936 Feb, [facility] [place] [facility] [address] [id number] [place] 3340 Feb, [facility] [place] [facility] [address] [id number] [place] [address]- 8899 Jan, [facility] [place] [facility] [address] [id number] [place] [address]- 7537 Jan, [facility] [place] [facility] [address] [id number] [place] [address]- 0982 Jan, [facility] [place] [facility] [address] [id number] [place] [address]- 0688 Jan, [facility] [place] [facility] [address] [id number] [place] [address]- 5551 Jan, [facility] [place] [facility] [address] [id number] [place] [address]- 9473 Jan, [facility] [place] [facility] [address] [id number] [place] [address]- 7058 Jan, [facility] [place] [facility] [address] [id number], [place] [address]- 6522 Jan, [facility] [place] [facility] [address] [id number], [place] [address]- 2096 Jan, [facility] [place] [facility] [address] [id number] [place] [address]- 8078 Jan, [facility] [place] [facility] [address] [id number], [place] [address]- 3157 Jan, [facility] [place] [facility] [address] [id number] [place] [address]- 7222 Jan, [facility] [place] [facility] [address] [id number] [place] [address]- 0496 17 Jan, 2013 [facility] [place] [facility] [address] [id number] [place] [address]- 4761 17 Jan, 2014 [facility] [place] [facility] [address] [id number] [place] [address]- 2768 15 Jan, 2014 [facility] [place] [facility] [address] [id number] [place] [address]- 4179 15 Jan, 2014 [facility] [place] [facility] [address] [id number] [place] [address]- 0918 14 Jan, 2014 [facility] [place] [facility] [address] [id number] [place] [address]- 1779 14 Jan, 2014 [facility] [place] [facility] [address] [id number] [place] [address]- 6071 13 Jan, 2014 [facility] [place] [facility] [address] [id number] [place] [address]- 7649 13 Jan, 2014 [facility] [place] [facility] [address] [id number] [place] [address]- 1595 13 Jan, 2014 [facility] [place] [facility] [address] [id number] [place] [address]- 3086 13 Jan, 2014 [facility] [place] [facility] [address] [id number] [place] [address]- 8960 10 Jan, 2014 [facility] [place] [facility] [address] [id number] [place] [address]- 7527 02 Jan, 2014 [facility] [place] [facility] [address] [id number] [place] [address]- 1478 Jan, [facility] [place] [facility] [address] [id number] [place] [address]- 2674 25 Dec, 2013 [facility] [place] [facility] [address] [id number] [place] [address]- 9695 Dec, [facility] [place] [facility] [address] [id number] [place] [address]- 6907 Dec, [facility] [place] [facility] [address] [id number] [place] [address] 23 Sep, 2013 [facility] [place] [facility] [address] [id number] [place] [address] 19 Sep, 2013 [facility] [place] [facility] [address] [id number] [place] [address] 19 Sep, 2013 [facility] [place] [facility] [address] [id number] [place] [address]40 17 Sep, 2013 [facility] [place] [facility] [address] [id number] [place] [address]- 7464 17 Sep, 2013 [facility] [place] [facility] [address] [id number] [place] [address] 09 Sep, 2013 [facility] [place] [facility] [address] [id number] [place] [address] 09 Sep, 2013 [facility] [place] [facility] [address] [id number] [place] [address] 08 Sep, 2013 [facility] [place] [facility] [address] [id number] [place] [address]- 7963 08 Sep, 2013 [facility] [place] [facility] [address] [id number] [place] [address]- 0433 04 Sep, 2013 [facility] [place] [facility] [address] [id number] [place] [address]- 8947 04 Sep, 2013 [facility] [place] [facility] [address] [id number], [place] [address]- [address] 02 Sep, 2013 [facility] [place] [facility] [address] [id number] [place] [address]- 2548 02 Sep, 2013 [facility] [place] [facility] [address] [id number] [place] [address]- 2543 02 Sep, 2013 [facility] [place] [facility] [address] [id number] [place] [address]- 62[address] 02 Sep, 2013 [facility] [place] [facility] [address] [id number] [place] [address] 36[address] Nov, [facility] [place] [facility] [address] [id number] [place] [address]- 8512 Nov, [facility] [place] [facility] [address] [id number] [place] [address]- 8687 Nov, [facility] [place] [facility] [address] [id number] [place] [address]- 5198 Nov, [facility] [place] [facility] [address] [id number] [place] [address]- 2669 Nov, [facility] [place] [facility] [address] [id number] [place] [address]- 2967 Nov, [facility] [place] [facility] [address] [id number] [place] [address]- 5362 Nov, [facility] [place] [facility] [address] [id number] [place] [address]- 1420 Nov, [facility] [place] [facility] [address] [id number] [place] [address]- 2274 Nov, [facility] [place] [facility] [address] [id number] [place] [address]- 7687 Nov, [facility] [place] [facility] [address] [id number] [place] [address]- 3221 Nov, [facility] [place] [facility] [address] [id number] [place] [address]- 2663 Nov, [facility] [place] [facility] [address] [id number] [place] [address]- 7108 Oct, [facility] [place] [facility] [address] [id number] [place] [address]- 1262 Oct, [facility] [place] [facility] [address] [id number] [place] [address]- 4714 Oct, [facility] [place] [facility] [address] [id number] [place] [address]- 8195 Oct, [facility] [place] [facility] [address] [id number] [place] [address] 5461 Oct, [facility] [place] [facility] [address] [id number] [place] [address]- 3246 Oct, [facility] [place] [facility] [address] [id number] [place] [address]- 2625 Oct, [facility] [place] [facility] [address] [id number] [place] [address]- 1504 Oct, [facility] [place] [facility] [address] [id number] [place] [address]- 4674 Oct, [facility] [place] [facility] [address] [id number] [place] [address]- 5586 Oct, [facility] [place] [facility] [address] [id number] [place] [address]- 7545 Oct, [facility] [place] [facility] [address] [id number] [place] [address]- 7239 Oct, [facility] [place] [facility] [address] [id number] [place] [address]- 5933 Oct, [facility] [place] [facility] [address] [id number] [place] [address]- 5067 Oct, [facility] [place] [facility] [address] [id number] [place] [address]- 2951 Oct, [facility] [place] [facility] [address] [id number] [place] [address]- 8822 Oct, [facility] [place] [facility] [address] [id number] [place] [address]- 1752 Oct, [facility] [place] [facility] [address] [id number] [place] [address]- 2425 Sep, [facility] [place] [facility] [address] [id number] [place] [address]- 5440 Sep, [facility] [place] [facility] [address] [id number] [place] [address]- 7393 Sep, [facility] [place] [facility] [address] [id number] [place] [address]- 0449 Sep, [facility] [place] [facility] [address] [id number] [place] [address]- 0252 Sep, [facility] [place] [facility] [address] [id number] [place] [address]- 6260 Sep, [facility] [place] [facility] [address] [id number] [place] [address]- 3970 Sep, [facility] [place] [facility] [address] [id number] [place] [address]- 4117 Sep, [facility] [place] [facility] [address] [id number] [place] [address]- 0121 Sep, [facility] [place] [facility] [address] [id number] [place] [address]- 7106 Sep, [facility] [place] [facility] [address] [id number] [place] [address]- 8715 Sep, [facility] [place] [facility] [address] [id number] [place] [address]- 2380 Sep, [facility] [place] [facility] [address] [id number] [place] [address]- 0562 Sep, [facility] [place] [facility] [address] [id number], [place] [address] 4[address] Sep, [facility] [place] [facility] [address] [id number], [place] [address]- 0662 Sep, [facility] [place] [facility] [address] [id number] [place] [address]- 4900 Sep, [facility] [place] [facility] [address] [id number] [place] [address]- 8364 07 Sep, 2013 [facility] [place] [facility] [address] [id number] [place] [address]- 1403 07 Sep, 2013 [facility] [place] [facility] [address] [id number] [place] [address]- 5970 Sep, [facility] [place] [facility] [address] [id number] [place] [address]- 6206 Sep, [facility] [place] [facility] [address] [id number] [place] [address]- 5311 Sep, [facility] [place] [facility] [address] [id number] [place] [address]- 2046 Sep, [facility] [place] [facility] [address] [id number] [place] [address]- 1464 August, [facility] [place] [facility] [address] [id number] [place] [address]- 2212 August, [facility] [place] [facility] [address] [id number] [place] [address]- 4689 August, [facility] [place] [facility] [address] [id number] [place] [address]- 8832 August, [facility] [place] [facility] [address] [id number] [place] [address]- 2390 August, [facility] [facility] [address] [id number] [place] [address] August, [facility] [place] [facility] [address] [id number] [place] [address] 37[address] August, [facility] [address] [id number] [place] [address] 57[address] August, [facility] [place] [facility] [address] [id number] [place] [address] 9789 August, [facility] [place] [facility] [address] [id number] [place] [address] 0547 August, [facility] [place] [facility] [address] [id number] [place] [address]- 3358 August, [facility] [place] [facility] [address] [id number] [place] [address] 3931 Jul, [facility] [place] [facility] [address] [id number] [place] [address]- 0716 28 Jul, 2013 [facility] [place] [facility] [address] [id number] [place] [address]- 9904 Jul, [facility] [place] [facility] [address] [id number] [place] [address]- 5481 Jul, [facility] [place] [facility] [address] [id number] [place] [address]- 5301 Jul, [facility] [place] [facility] [address] [id number] [place] [address]64 Jul, [facility] [place] [facility] [address] [id number] [place] [address]- 4441 Jul, [facility] [place] [facility] [address] [id number] [place] [address]- 5087 Jul, [facility] [place] [facility] [address] [id number] [place] [address]- 1890 Jul, [facility] [place] [facility] [address] [id number] [place] [address]- 4438 18 Jul, 2013 [facility] [place] [facility] [address] [id number] [place] [address]- 5741 16 Jul, 2013 [facility] [place] [facility] [address] [id number] [place] [address]- 5625 14 Jul, 2013 [facility] [place] [facility] [address] [id number] [place] [address]- 1200 14 Jul, 2013 [facility] [place] [facility] [address] [id number] [place] [address]- 3829 11 Jul, 2013 [facility] [place] [facility] [address] [id number] [place] [address]- 7828 11 Jul, 2013 [facility] [place] [facility] [address] [id number] [place] [address]- 3813 10 Jul, 2013 [facility] [place] [facility] [address] [id number] [place] [address]- 8226 Jul, [facility] [place] [address] [id number] [place] [address]- 6690 Jul, [facility] [place] [facility] [address] [id number] [place] [address]- 2488 Jul, [facility] [place] [address] [id number] [place] [address]- 6610 Jul, [facility] [place] [facility] [address] [id number] [place] [address]- 7064 Jul, [facility] [place] [facility] [address] [id number] [place] [address]- 8335 Jul, [facility] [place] [address] [id number] [place] [address] 1965 Jul, [facility] [place] [address] [id number] [place] [address]- 5392 Jun, [facility] [place] [facility] [address] [id number] [place] [address]- 2171 Jun, [facility] [place] [facility] [address] [id number] [place] [address]- 4332 Jun, [facility] [place] [address] [id number] [place] [address]- 6992 Jun, [facility] [place] [facility] [address] [id number] [place] [address]- 7029 Jun, [facility] [place] [address] [id number] [place] [address]- 4893 Jun, [facility] [place] [address] [id number] [place] [address]- 1973 Jun, [facility] [place] [facility] [address] [id number] [place] [address]- 6782 Jun, [facility] [place] [facility] [address] [id number] [place] [address]- 0734 Jun, [facility] [place] [facility] [address] [id number] [place] [address]- 2289 18 Jun, 2013 [facility] [address] [id number] [place] [address]- 7536 Jun, [facility] [place] [facility] [address] [id number] [place] [address]- 4495 Jun, [facility] [address] [id number] [place] [address]- 0769 May, [facility] [address] [id number] [place] [address]- 5845 May, [facility] [address] [id number] [place] [address]- 9103 Apr, [facility] [address] [id number] [place] [address]- 3677 Apr, [facility] [address] [id number] [place] [address]- 4212 Apr, [facility] [address] [id number] [place] [address]- 5071 Apr, [facility] [address] [id number] [place] [address]- 2652 Apr, [facility] [address] [id number] [place] [address]- 6760 Apr, [facility] [address] [id number] [place] [address]- 3260 Apr, [facility] [address] [id number] [place] [address]- 1976 Apr, [facility] [address] [id number] [place] [address]- 6554 Apr, [facility] [address] [id number] [place] [address]- 4296 Apr, [facility] [address] [id number] [place] [address]- 3886 Apr, [facility] [address] [id number] [place] [address]- 7641 Mar, [facility] [address] [id number] [place] [address]- 7150 Mar, [facility] [address] [id number] [place] [address]- 9720 Mar, [facility] [address] [id number] [place] [address]- 8750 Mar, [facility] [address] [id number] [place] [address]- 2965 Feb, [facility] [address] [id number] [place] [address]- 8147 Feb, [facility] [address] [id number] [place] [address]- 8105 Feb, [facility] [address] [id number], [place] [address]- 2133 Feb, [facility] [address] [id number], [place] [address]- 0156 Feb, [facility] [address] [id number], [place] [address]- 1095 Feb, [facility] [address] [id number], [place] [address]- 0867 Feb, [facility] [address] [id number], [place] [address]- 2354 Feb, [facility] [address] [id number], [place] [address]- 1367 Feb, [facility] [address] [id number], [place] [address]- 5894 Feb, [facility] [address] [id number], [place] [address]- 8789 Feb, [facility] [address] [id number], [place] [address]- 9385 Jan, 2012 [facility] [address] [id number] [place] [address]- 7546 25 Jan, 2012 [facility] [address] [id number], [place] [address]- 6162 Jan, [facility] [address] [id number] [place] [address]- 8854 11 Jan, 2012 [facility] [address] [id number] [place] [address]- 3442 10 Jan, 2012 [facility] [address] [id number] [place] [address]- 0135 10 Jan, 2013 [facility] [address] [id number] [place] [address]- 8059 03 Jan, 2013 [facility] [address] [facility] [id number], [place] [address]- 0549 02 Jan, 2013 [facility] [address] [id number], [place] [address]- 2856 30 Sep, 2012 [facility] [address] [id number] [place] [address]- 8924 25 Sep, 2012 [facility] [address] [facility] [id number], [place] [address]- 8700 18 Sep, 2012 [facility] [address] [id number], [place] [address]- 4178 17 Sep, 2012 [facility] [address] [id number], [place] [address]- 2548 17 Sep, 2012 [facility] [address] [id number], [place] [address]- 7899 16 Sep, 2012 [facility] [address] [facility] [id number], [place] [address]- 2542 13 Sep, 2012 [facility] [address] [facility] [id number], [place] [address]- 8371 11 Sep, 2012 [facility] [address] [id number] [place] [address]- 8999 05 Dec, 2012 [facility] [address] [id number] [place] [address]- 3187 Dec, [facility] [address] [id number] [place] [address]- 4690 Nov, [facility] [address] [id number] [place] [address]- 0264 Nov, [facility] [address] [id number] [place] [address]- 7859 Nov, [facility] [address] [id number] [place] [address]- 4168 Nov, [facility] [address] [id number] [place] [address]- 2676 Nov, [facility] [address] [id number] [place] [address]- 3229 Nov, [facility] [address] [id number] [place] [address]- 0100 Nov, [facility] [address] [id number] [place] [address]- 4917 Oct, [facility] [address] [id number] [place] [address]- 7550 Oct, [facility] [address] [id number] [place] [address]- 3837 Oct, [facility] [address] [id number] [place] [address]- 9941 Oct, [facility] [address] [id number] [place] [address]- 6872 Oct, [facility] [address] [id number] [place] [address]- 6281 Oct, [facility] [address] [id number] [place] [address]- 2641 Sep, [facility] [address] [id number] [place] [address]- 4893 28 Sep, 2012 [facility] [address] [id number] [place] [address]- 3924 27 Sep, 2012 [facility] [address] [id number] [place] [address]- 5422 14 Sep, 2012 [facility] [address] [id number] [place] [address]- 8958 13 Sep, 2012 [facility] [address] [id number] [place] [address]- 1599 10 Sep, 2012 [facility] [address] [id number] [place] [address]- 4260 07 Sep, 2012 [facility] [address] [id number] [place] [address]- 5268 06 Sep, 2012 [facility] [address] [id number] [place] [address]- 2374 05 Sep, 2012 [facility] [address] [id number] [place] [address]- 8233 August, [facility] [address] [id number] [place] [address]- 3709 August, [facility] [address] [id number] [place] [address]- 5304 August, [facility] [address] [id number], [place] [address]- 2175 August, [facility] [address] [id number] [place] [address]- 4562 August, [facility] [address] [id number] [place] [address]- 1723 August, [facility] [address] [id number] [place] [address]- 9485 August, [facility] [address] [id number] [place] [address]- 8210 August, [facility] [address] [id number] [place] [address]- 5667 Jul, [facility] [address] [facility] [id number] [place] [address]- 6892 Jul, [address] [id number] Jul [facility] [address] [id number] [place] [address]- 9670 Jun, [facility] [address] [id number] [place] [address]- 3857 Jun, [facility] [address] [id number] [place] [address]- 3145 Jun, [facility] [address] [facility] [id number] [place] [address]- 5250 Jun, [facility] [address] [id number] [place] [address]- 5257 Jun, [facility] [address] [id number] [place] [address]- 5832 Jun, [facility] [address] [facility] [id number] [place] [address]- 5895 May, [facility] [address] [id number] [place] [address]- 1747 May, [facility] [address] [id number] [place] [address]- 4290 May, [facility] [address] [id number] [place] [address]- 9026 May, [facility] [address] [id number] [place] [address]- 5535 May, [facility] [address] [facility] [id number] [place] [address]- 7878 Apr, [facility] [address] [id number] [place] [address]- 2765 15 Apr, 2012 [facility] [facility] [address] [id number] [place] [address]- 7736 Apr, [facility] [place] [facility] [address] [id number] [place] [address] 2546 09 Apr, 2012 [facility] [place] [facility] [address] [id number] [place] [address]- 5866 Apr, [facility] [place] [facility] [address] [id number] [place] [address]- 0949 Apr, [facility] [place] [facility] [address] [id number] [place] [address]- 3746 26 Mar, 2012 [facility] [place] [facility] [address] [id number] [place] [address]- 3461 20 Mar, 2012 [facility] [place] [facility] [address] [id number] [place] [address]- 7861 20 Mar, 2012 [facility] [address] [id number] [place] [address]- 0994 19 Mar, 2012 [facility] [place] [facility] [address] [id number] [place] [address]- 2541 19 Mar, 2012 [facility] [address] [id number] [place] [address]- 7016 18 Mar, 2012 [facility] [address] [id number] [place] [address]- 2546 18 Mar, 2012 [facility] [place] [facility] [address] [id number] [place] [address] 2546 10 Mar, 2012 [facility] [place] [facility] [address] [id number] [place] [address] 2546 10 Mar, 2012 [facility] [address] [id number] [place] [address]- 2546 05 Mar, 2012 [facility] [place] [facility] [address] [id number] [place] [address]- 2747 Mar, [facility] [place] [facility] [address] [id number] [place] [address]- 4163 Feb, [facility] [place] [facility] [address] [id number] [place] [address]- 2326 Feb, [facility] [place] [facility] [address] [facility] [id number] [place] [address]- 6582 Feb, [facility] [place] [facility] [address] [id number], [place] [address]- 7544 Feb, [facility] [place] [facility] [address] [id number] [place] [address]- 7877 Feb, [facility] [place] [facility] [address] [id number], [place] [address]- 0623 Feb, [facility] [place] [facility] [address] [id number] [place] [address]- 5293 Feb, [facility] [place] [facility] [address] [id number], [place] [address]- 9427 Feb, [facility] [place] [facility] [address] [id number], [place] [address]- 7807 Feb, [facility] [place] [facility] [address] [facility] [id number], [place] [address]- 7947 Feb, [facility] [place] [facility] [address] [id number], [place] [address]- 0773 Feb, [facility] [place] [facility] [address] [id number], [place] [address]- 6135 Jan, [facility] [place] [facility] [address] [id number], [place] [address]- 7614 Jan, [facility] [place] [facility] [address] [facility] [id number], [place] [address]- 9477 Jan, [facility] [place] [facility] [address] [id number], [place] [address]- 9598 Jan, [facility] [place] [facility] [address] [id number] [place] [address]- 6755 Jan, [facility] [place] [facility] [address] [id number] [place] [address]- 3977 Jan, [facility] [place] [facility] [address] [id number] [place] [address]- 2046 Jan, [facility] [place] [facility] [address] [id number] [place] [address]- 4465 24 Dec, 2011 [facility] [place] [facility] [address] [id number] [place] [address]- 2606 17 Dec, 2011 [facility] [place] [facility] [address] [id number] [place] [address]- 6471 13 Dec, 2011 [facility] [place] [facility] [address] [id number] [place] [address]- 9702 Dec, [facility] [place] [facility] [address] [id number] [place] [address]- 0452 Nov, [facility] [place] [facility] [address] [id number] [place] [address]- 9757 Nov, [facility] [place] [facility] [address] [id number] [place] [address]- 6024 Nov, [facility] [place] [facility] [address] [id number] [place] [address]- 4540 15 Nov, 2011 [facility] [place] [facility] [address] [id number] [place] [address]- 1917 14 Nov, 2011 [facility] [place] [facility] [address] [id number] [place] [address]- 7367 Nov, [facility] [place] [facility] [address] [id number] [place] [address]- 9357 Nov, [facility] [place] [facility] [address] [id number] [place] [address]- 7932 Nov, [facility] [place] [facility] [address] [id number] [place] [address]- 8684 Nov, [facility] [place] [facility] [address] [id number] [place] [address]- 8908 Nov, [facility] [place] [facility] [address] [id number] [place] [address]- 2070 Nov, [facility] [place] [facility] [address] [id number] [place] [address]- 2942 Nov, [facility] [place] [facility] [address] [id number] [place] [address]- 9858 Nov, [facility] [place] [facility] [address] [id number] [place] [address]- 2040 Oct, [facility] [place] [facility] [address] [id number] [place] [address]- 8427 Oct, [facility] [place] [facility] [address] [id number] [place] [address]- 4171 Oct, [facility] [place] [facility] [address] [id number] [place] [address]- 9062 Oct, [facility] [place] [facility] [address] [id number] [place] [address]- 7112 Oct, [facility] [place] [facility] [address] [id number] [place] [address]- 8862 Oct, [facility] [place] [facility] [address] [id number] [place] [address]- 1450 Oct, [facility] [place] [facility] [address] [id number] [place] [address]- 2879 Oct, [facility] [place] [facility] [address] [id number] [place] [address]- 6789 Oct, [facility] [place] [facility] [address] [id number] [place] [address]- 7670 Sep, [facility] [place] [facility] [address] [id number] [place] [address]- 0280 Sep, [facility] [place] [facility] [address] [id number] [place] [address] Sep, [facility] [place] [facility] [address] [id number] [place] [address] Sep, [facility] [place] [facility] [address] [id number] [place] [address] Sep, [facility] [place] [facility] [address] [id number] [place] [address] Sep, [facility] [place] [facility] [address] [id number] [place] [address] Sep, [facility] [place] [facility] [address] [id number] [place] [address] Sep, [facility] [place] [facility] [address] [id number] [place] [address] August, [facility] [place] [facility] [address] [id number] [place] [address] August, [facility] [place] [facility] [address] [id number] [place] [address] August, [facility] [place] [facility] [address] [id number] [place] [address] August, [facility] [place] [facility] [address] [id number] [place] [address] August, [facility] [place] [facility] [address] [id number] [place] [address] August, [facility] [place] [facility] [address] [id number] [place] [address] August, [facility] [place] [facility] [address] [id number] [place] [address] August, [facility] [place] [facility] [address] [id number] [place] [address] August, [facility] [place] [facility] [address] [id number] [place] [address] August, [facility] [place] [facility] [address] [facility] [id number] [place] [id number] August, [facility] [address] [facility] [id number] [place] [address] August, [facility] [address] [facility] [id number] [place] [address] Oct, IMMUNIZATIONS No Known Immunizations SOCIAL HISTORY Never Assessed REASON FOR VISIT SHANNAN Arias PLAN OF CARE VITAL SIGNS MEDICATIONS Medication Instructions Dosage Frequency Start Date End Date Duration Status Lyrica 150 MG Orally 2 times a day 1 capsule 12h 28 days Active RESULTS No Results PROCEDURES No [...] Surgical History bladder surgery Hospitalization History [facility] for right groin pain 05/2011 Hospitalization History [facility] for wound on buttocks 08/2012 Hospitalization History [facility], hypoxia secondary to pneumonia 12/02-12/09 Hospitalization History Pneumonia, elevated CO2 on Bipap was in ICU 08/2013 Hospitalization History Hypoxia, Exacerbation COPD, Chest pain 09/05/15 Hospitalization History suicidal ideations-[place] 12/28 Hospitalization History hypoxia--[facility] 02/13/2016 Hospitalization History shortness of breath at june 2016 Hospitalization History Shortness of breath at august 2016 Hospitalization History SOB, chest pain at 12/2016
--- OUTSIDE RECORDS SUMMARY | 2018-02-11 12:50 | XMS REPORT ---
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 diabetes mellitus with hyperglycemia E11.65 ; Oxygen dependent Z99.81 ; Folliculitis L73.9 ; Dysuria R30.0 ; Encounter for contraceptive management Z30.9 and Dog bite W54.0XXA [facility] [place] [facility] [address], [place] [address]- 8750 Jun, Unspecified mood [affective] disorder [address], [place] [address]- 8256 Jun, Type 2 diabetes mellitus with hyperglycemia E11.65 [facility] [place] [facility] [address] [place] [address] 45717- 9273 May, Unspecified mood [affective] disorder [address], [place] [address]- 5746 May, [facility] [facility] [address] [place] [address] 05919- 8231 May, [facility] [place] [facility] [address], [place] [address]- 2096 May, [facility] [facility] [id number] [place] [address] 83341- 3772 Apr, [facility] [place] [facility] [id number] [place] [address] 15536- 0464 Apr, Unspecified mood [affective] disorder F39 [facility] [facility] [id number] [place] [address] 06835- 2285 Apr, [facility] [facility] [id number] [place] [address] 20593- 2054 Apr, [facility] [place] [facility] [id number] [place] [address] 68302- 7779 Apr, [place] [id number] [place] [address] 22434- 0551 Apr, Dysuria R30.0 and Well woman exam (no gynecological exam) Z00.00 [facility] [id number] [place] [address] 48325- 1539 Mar, [facility] [place] [facility] [id number] [place] [address] 50238- 2992 Mar, [facility] [address] [place] [address] [id number] Mar, Dental examination Z01.20 [facility] [facility] [id number] [place] [address] 46934- 8784 Mar, Chronic diarrhea K52.9 ; Intractable vomiting with nausea, vomiting of unspecified type R11.2 ; Cellulitis, unspecified cellulitis site L03.90 ; Type 2 diabetes mellitus with diabetic polyneuropathy E11.42 and Postinflammatory hyperpigmentation L81.0 [facility] [place] [facility] [address] [place] [address] 51869- 6823 Mar, Unspecified mood [affective] disorder F39 [facility] [facility] [id number], [place] [address]- 1455 Mar, Unspecified mood [affective] disorder F39 [facility] [place] [facility] [id number], [place] [address]- 3890 Mar, [facility] [facility] [address] [facility] [id number], [place] [address]- 6388 Mar, [facility] [facility] [address] [facility] [id number], [place] [address]- 8997 Mar, [facility] [facility] [address] [facility] [id number], [place] [address]- 3438 Mar, [facility] [place] [facility] [id number], [place] [address]- 4730 Mar, [facility] [place] [facility] [id number], [place] [address]- 3452 Mar, [facility] [place] [facility] [id number], [place] [address]- 3609 Feb, Unspecified mood [affective] disorder F39 [facility] [place] [facility] [id number], [place] [address]- 4384 Feb, [facility] [place] [facility] [id number], [place] [address]- 5475 Feb, [facility] [place] [facility] [id number], [place] [address]- 9530 Jan, Unspecified mood [affective] disorder [id number] [id number] [id number] Jan, Encounter for dental examination Z01.20 [facility] [place] [facility] [address], [place] [address]- 8602 Jan, [facility] [place] [facility] [id number], [place] [address]- 8494 Jan, [facility] [place] [facility] [address], [place] [address]- 4400 Jan, [facility] [place] [facility] [address] [place] [address] 12203- 9567 Jan, [facility] [place] [facility] [id number] [place] [address] 89232- 6840 Jan, [facility] [place] [facility] [id number] [place] [address] 89894- 2392 Jan, Abdominal abscess K65.1 and Dental caries K02.9 [facility] [place] [facility] [id number] [place] [address] 74343- 4491 Jan, [facility] [place] [facility] [id number] [place] [address] 79285- 9384 30 Dec, 2014 Diabetes with neurological manifestations, type II or unspecified type, not stated as uncontrolled 250.60 ; Essential hypertension, benign 401.1 ; Concussion 850.9 and Skin texture changes 782.8 [facility] [place] [facility] [id number] [place] [address] 02299- 2026 Dec, [facility] [place] [facility] [id number] [place] [address] 77563- 1417 24 Dec, 2014 [facility] [place] [facility] [id number] [place] [address] 97717- 3150 Dec, [facility] [place] [facility] [id number] [place] [address] 89577- 4487 Dec, [facility] [place] [facility] [id number] [place] [address] 98656- 1147 17 Dec, 2014 Affective disorder 296.90 [facility] [place] [facility] [id number] [place] [address] 28820- 0442 14 Dec, 2014 [facility] [place] [facility] [id number] [place] [address] 56050- 0256 10 Dec, 2014 Affective disorder 296.90 [facility] [place] [facility] [id number] [place] [address] 52288- 1073 04 Dec, 2014 [facility] [place] [facility] [address] [place] [address]- 6372 Dec, 2014 [facility] [place] [facility] [address], [place] [address] 2546 Dec, [facility] [place] [facility] [address] [place] [address] 02338 2546 Dec, [facility] [place] [facility] [id number] [place] [address] 94588 2546 Nov, Affective disorder 296.90 [facility] [place] [facility] [id number] [place] [address] 40998 2540 Nov, [facility] [place] [facility] [id number] [place] [address] 31957- 9965 Nov, Affective disorder 296.90 [facility] [place] [facility] [id number] [place] [address] 56185- 6371 Nov, Diarrhea 787.91 [facility] [place] [facility] [id number] [place] [address] 69114- 9186 Nov, [facility] [place] [facility] [id number] [place] [address] 53566 2543 Nov, Diarrhea 787.91 [facility] [place] [facility] [id number] [place] [address] 74020 254 Nov, Diarrhea 787.91 and Hyperlipidemia 272.4 [facility] [place] [facility] [id number] [place] [address] 07725 2546 Nov, Diarrhea 787.91 [facility] [place] [facility] [id number] [place] [address] 81799 2546 Nov, Affective disorder 296.90 [facility] [place] [facility] [id number] [place] [address] 57016 2546 Nov, Affective disorder 296.90 [facility] [place] [facility] [id number] [place] [address] 87501- 2148 Nov, Affective disorder 296.90 [facility] [place] [facility] [id number] [place] [address] 67569- 8588 Nov, [facility] [place] [facility] [address], [place] [address]- 7122 Nov, [facility] [place] [facility] [address], [place] [address]- 7248 Nov, [facility] [place] [facility] [address], [place] [address]- 9108 Nov, Episodic mood disorder 296.90 [facility] [place] [facility] [address] [place] [address] 73447- 6161 Nov, [facility] [place] [facility] [id number] [place] [address] 89136- 7946 Nov, [facility] [place] [facility] [id number] [place] [address] 72350- 4153 Nov, [facility] [place] [facility] [id number] [place] [address] 10700- 1411 Nov, [facility] [place] [facility] [address], [place] [address]- 0804 Nov, [facility] [place] [facility] [id number] [place] [address] 82465- 6963 Nov, Lymphedema 457.1 ; Hyperlipidemia 272.4 ; Essential hypertension, benign 401.1 and Numbness of toes 782.0 [facility] [place] [facility] [address], [place] [address]- 9192 Nov, Episodic mood disorder 296.90 [facility] [place] [facility] [address], [place] [address]- 7863 Oct, [facility] [place] [facility] [address], [place] [address]- 6885 Oct, [facility] [place] [facility] [address], [place] [address]- 5003 Oct, [facility] [place] [facility] [address], [place] [address]- 6581 Oct, [facility] [place] [facility] [address] [facility] [id number] [place] [address]- 9470 14 Oct, 2014 [facility] [address] [facility] [id number] [place] [address]- 2669 Oct, 2014 [facility] [address] [facility] [id number] [place] [address]- 2409 Oct, 2014 [facility] [address] [facility] [id number] [place] [address]- 2816 Oct, 2014 [facility] [address] [facility] [id number] [place] [address]- 2021 Oct, Episodic mood disorder 296.90 [facility] [place] [facility] [address] [facility] [id number] [place] [address]- 3651 30 Sep, 2014 [facility] [address] [facility] [id number] [place] [address]- 4080 Sep, [facility] [address] [facility] [id number] [place] [address]- 0175 Sep, [facility] [address] [facility] [id number] [place] [address]- 9428 Sep, [facility] [id number], [place] [address]- 3991 Sep, [facility] [place] [facility] [id number], [place] [address]- 1814 Sep, Episodic mood disorder 296.90 [facility] [place] [facility] [address] [facility] [id number], [place] [address]- 5037 Sep, Unspecified episodic mood disorder 296.90 [facility] [address] [facility] [id number] [place] [address]- 1910 Sep, [facility] [address] [facility] [id number] [place] [address]- 2365 18 Sep, 2014 [facility] [id number], [place] [address]- 3947 Sep, Episodic mood disorder 296.90 [facility] [place] [facility] [address], [place] [address]- 2320 Sep, [facility] [place] [facility] [id number] [place] [address] 86132- 8946 Sep, [facility] [place] [facility] [id number] [place] [address] 06889- 9309 Sep, [facility] [place] [facility] [id number] [place] [address] 27160- 5842 Sep, Hematemesis 578.0 and Vomiting 787.03 [facility] [place] [facility] [id number] [place] [address] 09436- 9951 Sep, Episodic mood disorder 296.90 [facility] [place] [facility] [id number] [place] [address] 69579- 4349 Sep, [facility] [place] [facility] [id number] [place] [address] 68771- 4229 Sep, [facility] [place] [facility] [id number] [place] [address] 87403- 4025 Sep, Diabetes mellitus without mention of complication, type II or unspecified type, not stated as uncontrolled 250.00 and Other chronic pain 338.29 [facility] [place] [facility] [id number] [address] Sep, Episodic mood disorder 296.90 [facility] [place] [facility] [id number] [place] [address] 40098- 9594 Sep, [facility] [place] [facility] [id number] [place] [address] 84522- 8394 Sep, Episodic mood disorder 296.90 [facility] [place] [facility] [id number] [place] [address] 22615- 3694 Sep, [facility] [place] [facility] [id number] [place] [address] 58240- 6004 August, [facility] [place] [facility] [id number] [place] [address] [place] [address] August, [facility] [address] [facility] [id number] [address] August, Episodic mood disorder 296.90 [facility] [address] [facility] [id number] [place] [address] August, [facility] [id number], [place] [address] August, Unspecified episodic mood disorder 296.90 [facility] [address] [facility] [id number] [place] [address]- [address]689 August, Vomiting 787.03 [facility] [id number] [place] [address] 95011- 9887 August, [facility] [id number], [place] [address] August, [facility] [id number], [place] [address] August, [facility] [address] [id number] [address] August, [facility] [id number], [place] [address] August, [facility] [address] [address]100 Jul, [facility] [address] [id number] [address] Jul, [facility] [address] [id number] [address] Jul, [facility] [address] [id number] Jun, [facility] [place] [facility] [address] [id number] [address] Jun, [facility] [address] [id number], [place] [address] Jun, [facility] [place] [facility] [address] [id number] [place] [address]- 3630 Jun, [facility] [place] [facility] [address] [id number] [place] [address]- 6617 Jun, [facility] [place] [facility] [address] [id number] [place] [address]- 6721 Jun, [facility] [place] [facility] [address] [id number] [place] [address]- 6567 Jun, [facility] [place] [facility] [address] [id number] [place] [address]- 0956 Jun, [facility] [place] [facility] [address] [id number] [place] [address]- 7103 Jun, [facility] [place] [facility] [address] [id number] [place] [address]- 9556 Jun, [facility] [place] [facility] [address] [id number] [place] [address]- 5558 Jun, [facility] [place] [facility] [address] [id number] [place] [address]- 8511 Jun, [facility] [place] [facility] [address] [id number] [place] [address]- 3090 Jun, [facility] [place] [facility] [address] [id number] [place] [address]- 4604 Jun, [facility] [place] [facility] [address] [id number] [place] [address]- 3307 Jun, [facility] [place] [facility] [address] [id number] [place] [address]- 5313 Jun, [facility] [place] [facility] [address] [id number] [place] [address]- 2993 Jun, [facility] [place] [facility] [address] [id number] [place] [address] Jun, [facility] [place] [facility] [address] [id number] [place] [address] 12[address] 23 Jun, 2014 [facility] [place] [facility] [address] [id number] [place] [address] 8286 21 Jun, 2014 [facility] [place] [facility] [address] [id number] [place] [address] 7166 21 Jun, 2014 [facility] [place] [facility] [address] [id number] [place] [address] 2096 20 Jun, 2014 [facility] [place] [facility] [address] [id number] [place] [address]- 9645 20 Jun, 2014 [facility] [place] [facility] [address] [id number] [place] [address]- 7637 20 Jun, 2014 [facility] [place] [facility] [address] [id number] [place] [address]- 5435 20 Jun, 2014 [facility] [place] [facility] [address] [id number] [place] [address]- 9734 19 Jun, 2014 [facility] [place] [facility] [address] [id number] [place] [address]- 2737 19 Jun, 2014 [facility] [place] [facility] [address] [id number] [place] [address]- 2151 18 Jun, 2014 [facility] [place] [facility] [address] [id number] [place] [address]- 9207 18 Jun, 2014 [facility] [place] [facility] [address] [id number] [place] [address]- 9249 17 Jun, 2014 [facility] [place] [facility] [address] [id number] [place] [address]- 2874 17 Jun, 2014 [facility] [place] [facility] [address] [id number] [place] [address]- 4886 16 Jun, 2014 [facility] [place] [facility] [address] [id number] [place] [address]- 9426 16 Jun, 2014 [facility] [place] [facility] [address] [id number] [place] [address]- 3156 16 Jun, 2014 [facility] [place] [facility] [address] [id number] [place] [address]- 5030 16 Jun, 2014 [facility] [place] [facility] [address] [id number] [place] [address]- 3866 16 Jun, 2014 [facility] [place] [facility] [address] [id number] [place] [address]- 8856 16 Jun, 2014 [facility] [place] [facility] [address] [id number] [place] [address]- 2318 Jun, [facility] [place] [facility] [address] [id number] [place] [address]- 7530 Jun, [facility] [place] [facility] [address] [id number] [place] [address]- 2113 Jun, [facility] [place] [facility] [address] [id number] [place] [address]- 6368 Jun, [facility] [place] [facility] [address] [id number] [place] [address]- 6176 Jun, [facility] [place] [facility] [address] [id number] [place] [address]- 2823 Jun, [facility] [place] [facility] [address] [id number] [place] [address]- 5277 Jun, [facility] [place] [facility] [address] [id number], [place] [address] 55[address] Jun, [facility] [place] [facility] [address] [id number], [place] [address] 6[address] Jun, 2014 [facility] [place] [facility] [address] [id number] [place] [address]- 0536 Jun, [facility] [place] [facility] [address] [id number] [place] [address]- 8610 Jun, [facility] [place] [facility] [address] [id number] [place] [address]- 1617 Jun, 2014 [facility] [place] [facility] [address] [id number] [place] [address]- 2281 Jun, [facility] [place] [facility] [address] [id number] [place] [address]- 8494 Jun, [facility] [place] [facility] [address] [id number] [place] [address] Jun, [facility] [place] [facility] [address] [id number] [place] [address]- 1588 Jun, 2014 [facility] [place] [facility] [address] [id number] [place] [address]- 1371 Jun, [facility] [place] [facility] [address] [id number] [place] [address]- 3691 Jun, [facility] [place] [facility] [address] [facility] [id number] [place] [address]- 9576 Jun, [facility] [place] [facility] [address] [facility] [id number] [place] [address]- 4544 Jun, [facility] [place] [facility] [address] [facility] [id number] [place] [address]- 6612 May, [facility] [place] [facility] [address] [facility] [id number] [place] [address]- 6223 May, 2014 [facility] [place] [facility] [address] [facility] [id number] [place] [address]- 2352 May, [facility] [place] [facility] [address] [facility] [id number] [place] [address]- 1606 May, 2014 [facility] [place] [facility] [address] [facility] [id number] [place] [address]- 7355 May, [facility] [place] [facility] [address] [id number] [place] [address]- 6242 May, [facility] [place] [facility] [address] [facility] [id number] [place] [address] May, 2014 [facility] [place] [facility] [address] [facility] [id number] [place] [address]- 6377 May, 2014 [facility] [place] [facility] [address] [facility] [id number] [place] [address]- 3400 May, 2014 [facility] [place] [facility] [address] [facility] [id number] [place] [address]- 6366 20 May, 2014 [facility] [place] [facility] [address] [facility] [id number] [place] [address]- 1783 18 May, 2014 [facility] [place] [facility] [address] [facility] [id number] [place] [address]- 6697 18 May, 2014 [facility] [place] [facility] [address] [facility] [id number] [place] [address]- 3638 13 May, 2014 [facility] [place] [facility] [address] [facility] [id number] [place] [address]- 9509 13 May, 2014 [facility] [place] [facility] [address] [id number] [place] [address]- 9674 May, 2014 [facility] [place] [facility] [address] [facility] [id number] [place] [address]- 1187 May, 2014 [facility] [place] [facility] [address] [facility] [id number] [place] [address]- 1908 May, 2014 [facility] [place] [facility] [address] [facility] [id number] [place] [address]- 6097 May, 2014 [facility] [place] [facility] [address] [facility] [id number] [place] [address]- 1581 May, 2014 [facility] [place] [facility] [address] [facility] [id number], [place] [address]- 2541 May, 2014 [facility] [place] [facility] [address] [facility] [id number] [place] [address]- 3493 May, 2014 [facility] [place] [facility] [address] [facility] [id number], [place] [address]- 2542 May, 2014 [facility] [place] [facility] [address] [facility] [id number] [place] [address]- 7143 May, [facility] [place] [facility] [address] [id number] [place] [address]- 1820 May, [facility] [place] [facility] [address] [id number] [place] [address]- 0599 May, [facility] [place] [facility] [address] [id number] [place] [address]- 7443 May, [facility] [place] [facility] [address] [id number] [place] [address]- 3118 May, [facility] [place] [facility] [address] [id number] [place] [address]- 4521 Apr, [facility] [place] [facility] [address] [id number] [place] [address]- 1693 Apr, [facility] [place] [facility] [address] [id number] [place] [address]- 2153 Apr, [facility] [place] [facility] [address] [id number] [place] [address]- 5389 Apr, [facility] [place] [facility] [address] [id number] [place] [address]- 6976 Apr, [facility] [place] [facility] [address] [id number] [place] [address]- 1122 Apr, [facility] [place] [facility] [address] [id number], [place] [address]- 3762 Apr, [facility] [place] [facility] [address] [id number], [place] [address]- 3987 Apr, [facility] [place] [facility] [address] [id number] [place] [address]- 3514 Apr, [facility] [place] [facility] [address] [id number], [place] [address]- 5715 Apr, [facility] [place] [facility] [address] [id number], [place] [address]- 6680 Apr, [facility] [place] [facility] [address] [id number] [place] [address]- 3017 Apr, [facility] [address] [id number] [place] [address]- 4564 Apr, [facility] [place] [facility] [address] [id number] [place] [address]- 5027 Apr, [facility] [place] [facility] [address] [id number] [place] [address]- 8802 Apr, [facility] [place] [facility] [address] [id number] [place] [address]- 2003 Apr, [facility] [place] [facility] [address] [id number] [place] [address]- 6793 Apr, [facility] [place] [facility] [address] [id number] [place] [address]- 2514 Apr, [facility] [place] [facility] [address] [id number] [place] [address]- 9660 Apr, [facility] [place] [facility] [address] [id number] [place] [address]- 8996 Apr, [facility] [place] [facility] [address] [id number] [place] [address]- 0253 Mar, [facility] [place] [facility] [address] [id number] [place] [address]- 1140 Mar, [facility] [place] [facility] [address] [id number] [place] [address]- 9436 Mar, [facility] [place] [facility] [address] [id number] [place] [address]- 3634 Mar, [facility] [place] [facility] [address] [id number] [place] [address]- 2663 Mar, [facility] [place] [facility] [address] [id number] [place] [address]- 7577 Mar, [facility] [place] [facility] [address] [id number] [place] [address]- 2118 Mar, [facility] [place] [facility] [address] [id number] [place] [address]- 9447 18 Mar, 2014 [facility] [place] [facility] [address] [id number] [place] [address]- 9360 15 Mar, 2014 [facility] [place] [facility] [address] [id number] [place] [address]- 6265 15 Mar, 2014 [facility] [place] [facility] [address] [id number] [place] [address]- 3925 15 Mar, 2014 [facility] [place] [facility] [address] [id number] [place] [address]- 3099 15 Mar, 2014 [facility] [place] [facility] [address] [id number] [place] [address]- 4570 Mar, [facility] [place] [facility] [address] [id number] [place] [address]- 6409 Mar, [facility] [place] [facility] [address] [id number] [place] [address]- 6428 Mar, [facility] [place] [facility] [address] [id number] [place] [address]- 5075 Mar, [facility] [place] [facility] [address] [id number] [place] [address]- 7259 Feb, [facility] [place] [facility] [address] [id number] [place] [address]- 0922 Feb, [facility] [place] [facility] [address] [id number] [place] [address]- 5220 Feb, [facility] [place] [facility] [address] [id number] [place] [address]- 8071 Feb, [facility] [place] [facility] [address] [id number] [place] [address]- 9886 Feb, [facility] [place] [facility] [address] [id number] [place] [address]- 7475 Feb, [facility] [place] [facility] [address] [id number], [place] [address]- 2306 19 Feb, 2014 [facility] [place] [facility] [address] [id number] [place] [address]- 1023 18 Feb, 2014 [facility] [place] [facility] [address] [id number] [place] [address]- 5769 18 Feb, 2014 [facility] [place] [facility] [address] [id number] [place] [address]- 2534 17 Feb, 2014 [facility] [place] [facility] [address] [id number] [place] [address]- 1819 17 Feb, 2014 [facility] [place] [facility] [address] [id number] [place] [address]- 9179 17 Feb, 2014 [facility] [place] [facility] [address] [id number] [place] [address]- 9947 17 Feb, 2014 [facility] [place] [facility] [address] [id number] [place] [address]- 3618 14 Feb, 2014 [facility] [place] [facility] [address] [id number] [place] [address]- 4158 14 Feb, 2014 [facility] [place] [facility] [address] [id number] [place] [address]- 7038 14 Feb, 2014 [facility] [place] [facility] [address] [id number] [place] [address]- 2013 14 Feb, 2014 [facility] [place] [facility] [address] [id number], [place] [address]- 9288 10 Feb, 2014 [facility] [place] [facility] [address] [id number], [place] [address]- 1298 10 Feb, 2014 [facility] [place] [facility] [address] [id number] [place] [address]- 7217 Feb, [facility] [place] [facility] [address] [id number] [place] [address]- 0265 Feb, [facility] [place] [facility] [address] [id number] [place] [address]- 2701 30 Jan, 2014 [facility] [place] [facility] [address] [id number] [place] [address]- 9545 30 Jan, 2013 [facility] [place] [facility] [address] [id number] [place] [address]- 3458 30 Jan, 2013 [facility] [place] [facility] [address] [id number] [place] [address]- 5701 30 Jan, 2014 [facility] [place] [facility] [address] [id number] [place] [address]- 3484 24 Jan, 2014 [facility] [place] [facility] [address] [id number] [place] [address]- 2833 24 Jan, 2014 [facility] [place] [facility] [address] [id number] [place] [address]- 9833 Jan, [facility] [place] [facility] [address] [id number] [place] [address]- 5119 Jan, [facility] [place] [facility] [address] [id number] [place] [address]- 2539 Jan, [facility] [place] [facility] [address] [id number] [place] [address]- 7543 20 Jan, 2014 [facility] [place] [facility] [address] [id number] [place] [address]- 3072 17 Jan, 2014 [facility] [place] [facility] [address] [id number] [place] [address]- 2146 17 Jan, 2014 [facility] [place] [facility] [address] [id number] [place] [address]- 5308 17 Jan, 2013 [facility] [place] [facility] [address] [id number] [place] [address]- 6544 17 Jan, 2013 [facility] [place] [facility] [address] [id number] [place] [address]- 3229 15 Jan, 2014 [facility] [place] [facility] [address] [id number] [place] [address]- 4443 15 Jan, 2013 [facility] [place] [facility] [address] [id number] [place] [address]- 1572 14 Jan, 2014 [facility] [place] [facility] [address] [id number] [place] [address]- 8791 14 Jan, 2014 [facility] [place] [facility] [address] [id number] [place] [address]- 8364 13 Jan, 2014 [facility] [place] [facility] [address] [id number] [place] [address]- 4136 Jan, [facility] [place] [facility] [address] [id number] [place] [address]- 6940 Jan, [facility] [place] [facility] [address] [id number] [place] [address]- 8611 Jan, [facility] [place] [facility] [address] [id number] [place] [address]- 5210 10 Jan, 2014 [facility] [place] [facility] [address] [id number] [place] [address]- 1748 Jan, [facility] [place] [facility] [address] [id number], [place] [address]- 6676 Jan, [facility] [place] [facility] [address] [id number] [place] [address]- 5992 25 Dec, 2013 [facility] [place] [facility] [address] [id number], [place] [address]- 2145 25 Dec, 2013 [facility] [place] [facility] [address] [id number], [place] [address]- 6730 23 Dec, 2013 [facility] [place] [facility] [address] [id number], [place] [address]- 4441 23 Dec, 2013 [facility] [place] [facility] [address] [id number], [place] [address]- 3269 19 Dec, 2013 [facility] [place] [facility] [address] [id number], [place] [address]- 0272 19 Dec, 2013 [facility] [place] [facility] [address] [id number], [place] [address]- 5074 17 Dec, 2013 [facility] [place] [facility] [address] [id number], [place] [address]- 4881 17 Dec, 2013 [facility] [place] [facility] [address] [id number] [place] [address]- 1102 09 Sep, 2013 [facility] [place] [facility] [address] [id number] [place] [address]- 3156 09 Dec, 2013 [facility] [place] [facility] [address] [id number] [place] [address]- 3338 08 Sep, 2013 [facility] [place] [facility] [address] [id number] [place] [address]- 5436 08 Sep, 2013 [facility] [place] [facility] [address] [id number] [place] [address]- 7029 04 Dec, 2013 [facility] [place] [facility] [address] [id number] [place] [address]- 1972 Dec, 2013 [facility] [place] [facility] [address] [id number] [place] [address]- 7003 Dec, 2013 [facility] [place] [facility] [address] [id number] [place] [address]- 5210 Dec, 2013 [facility] [place] [facility] [address] [id number] [place] [address]- 4606 Dec, 2013 [facility] [place] [facility] [address] [id number] [place] [address]- 9618 Dec, 2013 [facility] [place] [facility] [address] [id number] [place] [address]- 5650 Nov, [facility] [place] [facility] [address] [id number] [place] [address]- 9732 Nov, [facility] [place] [facility] [address] [id number] [place] [address]- 3329 Nov, [facility] [place] [facility] [address] [id number] [place] [address]- 8420 Nov, [facility] [place] [facility] [address] [id number] [place] [address]- 4343 Nov, [facility] [place] [facility] [address] [id number] [place] [address]- 9258 Nov, [facility] [place] [facility] [address] [id number] [place] [address]- 8350 Nov, [facility] [place] [facility] [address] [id number] [place] [address]456 Nov, [facility] [place] [facility] [address] [id number] [place] [address]- 2304 Nov, [facility] [place] [facility] [address] [id number] [place] [address]- 8765 Nov, [facility] [place] [facility] [address] [id number] [place] [address]- 9850 Nov, [facility] [place] [facility] [address] [id number] [place] [address]- 2980 Nov, [facility] [place] [facility] [address] [id number] [place] [address]- 3642 Oct, [facility] [place] [facility] [address] [id number] [place] [address]- 6299 Oct, [facility] [place] [facility] [address] [id number] [place] [address]- 7756 Oct, [facility] [place] [facility] [address] [id number] [place] [address]- 9887 Oct, [facility] [place] [facility] [address] [id number] [place] [address]- 7726 Oct, [facility] [place] [facility] [address] [id number] [place] [address]- 9540 Oct, [facility] [place] [facility] [address] [id number] [place] [address]- 8842 Oct, [facility] [place] [facility] [address] [id number] [place] [address]- 0117 Oct, [facility] [place] [facility] [address] [id number] [place] [address]- 0499 22 Oct, 2013 [facility] [place] [facility] [address] [id number] [place] [address]- 9418 22 Oct, 2013 [facility] [place] [facility] [address] [id number] [place] [address]- 7931 16 Oct, 2013 [facility] [place] [facility] [address] [id number] [place] [address]- 5454 16 Oct, 2013 [facility] [place] [facility] [address] [id number] [place] [address]- 4734 14 Oct, 2013 [facility] [place] [facility] [address] [id number] [place] [address]- 2090 14 Oct, 2013 [facility] [place] [facility] [address] [id number] [place] [address]- 5290 Oct, [facility] [place] [facility] [address] [id number] [place] [address]- 4656 Oct, [facility] [place] [facility] [address] [id number] [place] [address]- 0764 Oct, [facility] [place] [facility] [address] [id number] [place] [address] 27 Sep, 2013 [facility] [place] [facility] [address] [id number] [place] [address] 27 Sep, 2013 [facility] [place] [facility] [address] [id number] [place] [address] Sep, [facility] [place] [facility] [address] [id number] [place] [address] 20 Sep, 2013 [facility] [place] [facility] [address] [id number] [place] [address] 18 Sep, 2013 [facility] [place] [facility] [address] [id number] [place] [address] 18 Sep, 2013 [facility] [place] [facility] [address] [id number] [place] [address]96 17 Sep, 2013 [facility] [place] [facility] [address] [id number] [place] [address] 17 Sep, 2013 [facility] [place] [facility] [address] [id number] [place] [address] Sep, [facility] [place] [facility] [address] [id number] [place] [address] Sep, [facility] [place] [facility] [address] [id number] [place] [address] Sep, [facility] [place] [facility] [address] [id number] [place] [address] Sep, [facility] [place] [facility] [address] [id number] [place] [address] Sep, [facility] [place] [facility] [address] [id number] [place] [address] Sep, [facility] [place] [facility] [address] [id number] [place] [address] 4567 Sep, [facility] [place] [facility] [address] [id number] [place] [address] Sep, [facility] [place] [facility] [address] [id number] [place] [address] Sep, [facility] [address] [id number] [place] [address] Sep, [facility] [address] [id number] [place] [address]- [address] Sep, [facility] [place] [facility] [address] [id number] [place] [address]- 96[address] Sep, [facility] [address] [id number] [place] [address] 74[address] Sep, [facility] [address] [id number] [place] [address] Sep, [facility] [place] [address] [id number] [place] [address]004 August, [facility] [address] [id number] [place] [address] August, [facility] [address] [id number] [place] [address] August, [facility] [address] [id number] [place] [address] August, [facility] [address] [id number] [place] [address] August, [facility] [address] [id number] [place] [address] August, [facility] [place] [facility] [address] [id number] [place] [address] August, [facility] [address] [id number] [place] [address] 6[address] August, [facility] [address] [id number] [place] [address] 60[address] August, [facility] [address] [id number] [place] [address] August, [facility] [address] [id number] [place] [address] August, [facility] [address] [id number] [place] [address] 78[address] Jul, [facility] [address] [id number] [place] [address] 28[address] Jul, [facility] [address] [id number] [place] [address] Jul, [facility] [address] [id number] [place] [address] 9[address] Jul, [facility] [address] [id number] [place] [address] Jul, [facility] [address] [id number] [place] [address] 8661 Jul, [facility] [address] [id number] [place] [address] 9418 Jul, [facility] [address] [id number] [place] [address] Jul, [facility] [address] [id number] [place] [address] 8978 Jul, [facility] [address] [id number] [place] [address] 49[address] Jul, [facility] [address] [id number] [place] [address]- [address] 16 Jul, 2013 [facility] [address] [id number] [place] [address]- [address] Jul, [facility] [address] [id number] [place] [address]- [address] Jul, [facility] [address] [id number] [place] [address]- [address] Jul, [facility] [address] [id number] [place] [address]- 0041 Jul, [facility] [address] [id number] [place] [address]- 75[address] Jul, [facility] [address] [id number] [place] [address]- 9995 Jul, [facility] [address] [id number] [place] [address]- [address] 05 Jul, 2013 [facility] [address] [id number] [place] [address]- [address]131 Jul, [facility] [address] [id number] [place] [address]- 2931 Jul, [facility] [address] [id number] [place] [address]- 2724 Jul, [facility] [address] [id number] [place] [address]- 78[address] Jul, [facility] [address] [id number] [place] [address]- 0559 Jul, [facility] [address] [id number] [place] [address] Jun, [facility] [address] [id number] [place] [address]- 7601 Jun, [facility] [address] [id number] [place] [address]- 46[address] Jun, [facility] [address] [id number] [place] [address]- 1510 Jun, [facility] [address] [id number] [place] [address]- [address] Jun, [facility] [address] [id number] [place] [address]- [address]782 Jun, [facility] [address] [id number] [place] [address]- 8216 Jun, [facility] [address] [id number] [place] [address]- [address] Jun, [facility] [address] [id number] [place] [address]- 3715 Jun, [facility] [address] [id number] [place] [address]- 5960 Jun, [facility] [address] [id number] [place] [address] Jun, [facility] [place] [facility] [address] [id number] [place] [address] Jun, [facility] [place] [facility] [address] [id number] [place] [address] 8846 May, [facility] [place] [facility] [address] [id number] [place] [address] May, [facility] [place] [facility] [address] [id number] [place] [address] 6732 Apr, [facility] [place] [facility] [address] [id number] [place] [address] 3567 Apr, [facility] [place] [facility] [address] [id number] [place] [address] 1910 Apr, [facility] [place] [facility] [address] [id number] [place] [address]- 9769 Apr, [facility] [place] [facility] [address] [id number] [place] [address]- 9237 Apr, [facility] [place] [facility] [address] [id number] [place] [address]- 2118 Apr, [facility] [place] [facility] [address] [id number] [place] [address]- 0071 Apr, [facility] [place] [facility] [address] [id number] [place] [address]- 6139 Apr, [facility] [place] [facility] [address] [id number] [place] [address]- 5271 Apr, [facility] [place] [facility] [address] [id number] [place] [address]- 7413 Apr, [facility] [place] [facility] [address] [id number] [place] [address]- 3448 Apr, [facility] [place] [facility] [address] [id number] [place] [address]- 9465 Mar, [facility] [place] [facility] [address] [id number] [place] [address]- 9361 Mar, [facility] [place] [facility] [address] [id number] [place] [address]- 6331 Mar, [facility] [place] [facility] [address] [id number] [place] [address] Mar, [facility] [place] [facility] [address] [id number], [place] [address]- 3208 Feb, [facility] [address] [id number] [place] [address]- 8940 Feb, [facility] [place] [facility] [address] [id number], [place] [address] 4957 Feb, [facility] [place] [facility] [address] [id number] [place] [address]- 4072 Feb, [facility] [place] [facility] [address] [id number], [place] [address]- 3386 Feb, [facility] [place] [facility] [address] [id number] [place] [address]- 2924 Feb, [facility] [place] [facility] [address] [id number], [place] [address]- 8764 Feb, [facility] [address] [id number], [place] [address]- 1687 Feb, [facility] [place] [facility] [address] [id number], [place] [address]- 6746 Feb, [facility] [place] [facility] [address] [id number], [place] [address]- 8740 Feb, [facility] [place] [facility] [address] [id number], [place] [address]- 9555 Feb, [facility] [place] [facility] [address] [id number], [place] [address]- 0097 Jan, [facility] [place] [facility] [address] [id number], [place] [address]- 7892 Jan, [facility] [place] [facility] [address] [id number], [place] [address]- 7003 Jan, [facility] [place] [facility] [address] [id number], [place] [address]- 2138 Jan, [facility] [place] [facility] [address] [id number], [place] [address]- 8448 Jan, [facility] [place] [facility] [address] [id number] [place] [address]- 5072 10 Jan, 2012 [facility] [place] [facility] [address] [id number] [place] [address]- 1496 03 Jan, 2013 [facility] [place] [facility] [address] [id number] [place] [address] 254 02 Jan, 2013 [facility] [place] [facility] [address] [id number] [place] [address]- 9839 30 Dec, 2012 [facility] [place] [facility] [address] [id number] [place] [address] 2548 25 Dec, 2012 [facility] [place] [facility] [address] [id number] [place] [address]- 2716 18 Dec, 2012 [facility] [place] [facility] [address] [id number] [place] [address]- 5750 17 Dec, 2012 [facility] [place] [facility] [address] [id number] [place] [address]- 4745 17 Dec, 2012 [facility] [place] [facility] [address] [id number] [place] [address]- 1559 16 Dec, 2012 [facility] [place] [facility] [address] [id number] [place] [address]- 0366 13 Dec, 2012 [facility] [place] [facility] [address] [id number] [place] [address] 2548 11 Dec, 2012 [facility] [place] [facility] [address] [id number] [place] [address]- 2549 05 Dec, 2012 [facility] [place] [facility] [address] [id number] [place] [address] 2549 04 Dec, 2012 [facility] [place] [facility] [address] [id number] [place] [address] 2540 30 Nov, 2012 [facility] [place] [facility] [address] [id number] [place] [address] 2545 29 Nov, 2012 [facility] [place] [facility] [address] [id number] [place] [address]- 2736 Nov, [facility] [place] [facility] [address] [id number] [place] [address]- 4997 16 Nov, 2012 [facility] [place] [facility] [address] [id number] [place] [address]- 2355 14 Nov, 2012 [facility] [place] [facility] [address] [id number] [place] [address]- 7306 Nov, [facility] [place] [facility] [address] [id number] [place] [address]- 3956 05 Nov, 2012 [facility] [place] [facility] [address] [id number] [place] [address]- 7432 Oct, [facility] [place] [facility] [address] [id number] [place] [address]- 6695 Oct, [facility] [place] [facility] [address] [id number] [place] [address]- 1371 Oct, [facility] [place] [facility] [address] [id number] [place] [address]- 6002 17 Oct, 2012 [facility] [place] [facility] [address] [id number] [place] [address]- 4223 15 Oct, 2012 [facility] [place] [facility] [address] [id number] [place] [address]- 8236 Oct, [facility] [place] [facility] [address] [id number] [place] [address]- 6617 28 Sep, 2012 [facility] [place] [facility] [address] [id number] [place] [address]- 2416 28 Sep, 2012 [facility] [place] [facility] [address] [id number] [place] [address]- 2536 27 Sep, 2012 [facility] [place] [facility] [address] [id number] [place] [address]- 9461 14 Sep, 2012 [facility] [place] [facility] [address] [id number] [place] [address]- 5013 13 Sep, 2012 [facility] [place] [facility] [address] [id number] [place] [address]- 8226 Sep, [facility] [address] [id number] [place] [address]- 7014 Sep, [facility] [address] [id number] [place] [address]- 6031 Sep, [facility] [address] [id number] [place] [address]- 6449 Sep, [facility] [address] [id number] [place] [address]- 6747 August, [facility] [address] [id number] [place] [address]- 6057 August, [facility] [address] [id number] [place] [address]- 3298 August, [facility] [address] [id number] [place] [address]- 3037 August, [facility] [address] [id number] [place] [address]- 5945 August, [facility] [address] [id number] [place] [address]- 4272 August, [facility] [address] [id number] [place] [address]- 5446 August, [facility] [address] [id number] [place] [address]- 9976 August, [facility] [address] [id number] [place] [address]- 6737 Jul, [facility] [address] [id number] [place] [address]- 6754 Jul, [address] [id number] Jul [facility] [address] [id number] [place] [address]- 3497 Jun, [facility] [place] [facility] [address] [id number] [place] [address]- 0895 Jun, [facility] [address] [id number] [place] [address]- 6564 Jun, [facility] [place] [facility] [address] [id number] [place] [address]- 8801 Jun, [facility] [address] [id number] [place] [address]- 4400 Jun, [facility] [address] [id number] [place] [address]- 7381 Jun, [facility] [address] [id number] [place] [address]- 0695 May, [facility] [address] [id number] [place] [address]- 5602 May, [facility] [address] [id number] [place] [address]- 5534 May, [facility] [address] [id number] [place] [address]- 9988 May, [facility] [address] [id number] [place] [address]- 9251 May, [facility] [address] [id number] [place] [address]- 2879 Apr, [facility] [address] [id number] [place] [address]- 8995 Apr, [facility] [address] [id number] [place] [address]- 4602 Apr, [facility] [place] [facility] [address] [id number] [place] [address]- 2473 Apr, [facility] [place] [facility] [address] [id number] [place] [address]- 9347 Apr, [facility] [place] [facility] [address] [id number] [place] [address]- 2752 Apr, [facility] [place] [facility] [address] [id number] [place] [address]- 5351 Mar, [facility] [place] [facility] [address] [id number] [place] [address]- 6426 Mar, [facility] [place] [facility] [address] [id number] [place] [address]- 4886 Mar, [facility] [place] [facility] [address] [id number] [place] [address]- 4016 Mar, [facility] [place] [facility] [address] [id number] [place] [address]- 0584 Mar, [facility] [place] [facility] [address] [id number] [place] [address]- 2813 Mar, [facility] [place] [facility] [address] [id number] [place] [address]- 3347 Mar, [facility] [place] [facility] [address] [id number] [place] [address]- 6553 Mar, [facility] [place] [facility] [address] [id number] [place] [address]- 1330 Mar, [facility] [place] [facility] [address] [id number] [place] [address]- 3210 Mar, [facility] [place] [facility] [address] [id number] [place] [address]- 1387 Mar, [facility] [place] [facility] [address] [id number], [place] [address]- 4767 Feb, [facility] [place] [facility] [address] [id number] [place] [address]- 7436 Feb, [facility] [place] [facility] [address] [id number] [place] [address]- 9197 Feb, [facility] [place] [facility] [address] [id number] [place] [address]- 1356 Feb, [facility] [place] [facility] [address] [id number] [place] [address]- 6901 Feb, [facility] [place] [facility] [address] [id number] [place] [address]- 0431 Feb, [facility] [place] [facility] [address] [id number] [place] 0786 Feb, [facility] [place] [facility] [address] [id number] [place] [address]- 5991 Feb, [facility] [place] [facility] [address] [id number] [place] [address]- 4070 Feb, [facility] [place] [facility] [address] [id number] [place]97 Feb, [facility] [place] [facility] [address] [id number] [place] [address]- 2658 Feb, [facility] [place] [facility] [address] [facility] [id number] [place] [address]- 7614 Jan, [facility] [place] [facility] [address] [id number] [place] [address]- 8501 Jan, [facility] [place] [facility] [address] [id number] [place] [address]- 3683 Jan, [facility] [place] [facility] [address] [facility] [id number] [place] [address]- 9510 Jan, [facility] [place] [facility] [address] [id number] [place] [address]- 7024 Jan, [facility] [place] [facility] [address] [id number] [place] [address]- 5980 Jan, [facility] [place] [facility] [address] [id number] [place]75 Jan, [facility] [place] [facility] [address] [id number] [place] [address]- 1421 24 Dec, 2011 [facility] [place] [facility] [address] [id number] [place] [address]- 5411 17 Dec, 2011 [facility] [place] [facility] [address] [id number] [place] [address]- 0790 13 Dec, 2011 [facility] [place] [facility] [address] [id number] [place] [address]- 4100 12 Dec, 2011 [facility] [place] [facility] [address] [id number] [place] [address]- 5898 23 Nov, 2011 [facility] [place] [facility] [address] [id number] [place] [address]- 9834 Nov, [facility] [place] [facility] [address] [id number] [place] [address]- 5254 Nov, [facility] [place] [facility] [address] [id number] [place] [address]- 1652 15 Nov, 2011 [facility] [place] [facility] [address] [id number] [place] [address]- 4116 14 Nov, 2011 [facility] [place] [facility] [address] [id number] [place] [address]- 8421 Nov, [facility] [place] [facility] [address] [id number] [place] [address]- 8907 Nov, [facility] [place] [facility] [address] [id number] [place] [address]- 7902 Nov, [facility] [place] [facility] [address] [id number] [place] [address]- 9272 Nov, [facility] [place] [facility] [address] [id number] [place] [address]- 4338 Nov, [facility] [place] [facility] [address] [id number] [place] [address]- 5263 Nov, [facility] [place] [facility] [address] [id number] [place] [address]- 2082 Nov, [facility] [place] [facility] [address] [id number] [place] [address]- 5745 Nov, [facility] [place] [facility] [address] [id number] [place] [address]- 5971 Oct, [facility] [place] [facility] [address] [id number] [place] [address]- 0436 Oct, [facility] [place] [facility] [address] [id number] [place] [address]- 8344 Oct, [facility] [place] [facility] [address] [id number] [place] [address]- 6078 Oct, [facility] [place] [facility] [address] [id number] [place] [address]- 0049 Oct, [facility] [place] [facility] [address] [id number] [place] [address]- 5916 Oct, [facility] [place] [facility] [address] [id number] [place] [address]- 5443 Oct, [facility] [place] [facility] [address] [id number] [place] [address]- 9469 Oct, [facility] [place] [facility] [address] [id number] [place] [address]- 8618 Oct, [facility] [place] [facility] [address] [id number] [place] [address]- 1628 Sep, [facility] [place] [facility] [address] [id number] [place] [address]- 6263 Sep, [facility] [place] [facility] [address] [id number] [place] [address]- 1150 Sep, [facility] [place] [facility] [address] [id number] [place] [address]- 9032 Sep, [facility] [place] [facility] [address] [id number] [place] [address]- 1753 Sep, [facility] [place] [facility] [address] [id number] [place] [address]- 2822 Sep, [facility] [place] [facility] [address] [id number] [place] [address]- 4303 Sep, [facility] [place] [facility] [address] [facility] [id number], [place] [address]- 8356 Sep, [facility] [place] [facility] [address] [facility] [id number], [place] [address]- 4976 August, [facility] [place] [facility] [address] [facility] [id number], [place] [address]- 8516 August, [facility] [place] [facility] [address] [facility] [id number], [place] [address]- 0676 August, [facility] [place] [facility] [address] [facility] [id number], [place] [address]- 3082 August, [facility] [place] [facility] [id number], [place] [address]- 8303 August, [facility] [place] [facility] [address] [facility] [id number], [place] [address]- 1745 August, [facility] [place] [facility] [id number], [place] [address]- 7613 August, [facility] [place] [facility] [id number], [place] [address]- 8822 August, [facility] [place] [facility] [address] [id number], [place] [address]- 3982 August, [facility] [place] [facility] [address] [id number], [place] [address]- 8315 August, [facility] [place] [facility] [address] [id number], [place] [address]- 5406 August, [facility] [place] [facility] [address] [id number], [place] [address]- 7839 August, [facility] [place] [facility] [address] [id number], [place] [address]- 9116 Oct, IMMUNIZATIONS No Known Immunizations SOCIAL HISTORY Never Assessed REASON FOR VISIT Refill Request PLAN OF CARE VITAL SIGNS MEDICATIONS Medication Instructions Dosage Frequency Start Date End Date Duration Status Chlorhexidine Gluconate 4 % Externally daily -avoid face, head, genitals as directed Jul, 10 days Active Loperamide HCl 2 MG Orally 2 times a day 1 capsule as needed 12h Oct, 03 days Active RESULTS No Results PROCEDURES No [...] Surgical History bladder surgery Hospitalization History Via [facility] for right groin pain 05/[address] [facility] for wound on buttocks 08/2012 Hospitalization History [facility], hypoxia secondary to pneumonia 12/02-12/09 Hospitalization History Pneumonia, elevated CO2 on Bipap was in ICU 08/2013 Hospitalization History Hypoxia, Exacerbation COPD, Chest pain 09/05/15 Hospitalization History suicidal ideations-[facility] 12/28 Hospitalization History hypoxia--[facility] 02/13/2016 Hospitalization History shortness of breath at june 2016 Hospitalization History Shortness of breath at august 2016 Hospitalization History SOB, chest pain at 12/2016
--- OUTSIDE RECORDS SUMMARY | 2018-02-11 12:51 | XMS REPORT ---
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 diabetes mellitus with hyperglycemia E11.65 ; Oxygen dependent Z99.81 ; Folliculitis L73.9 ; Dysuria R30.0 ; Encounter for contraceptive management Z30.9 and Dog bite W54.0XXA [facility] [facility] [address], [place] [address]- 6655 Jun, Unspecified mood [affective] disorder [address], [place] [address]- 3783 Jun, Type 2 diabetes mellitus with hyperglycemia E11.65 [facility] [place] [facility] [id number] [place] [address] 82361- 5071 May, Unspecified mood [affective] disorder [address], [place] [address]- 2967 May, [facility] [facility] [id number] [place] [address] 24387- 7168 May, [facility] [facility] [address], [place] [address]- 2736 May, [facility] [facility] [id number] [place] [address] 88269- 4787 Apr, [facility] [facility] [id number] [place] [address] 37774- 2361 Apr, Unspecified mood [affective] disorder F39 [facility] [id number] [place] [address] 57047- 8707 Apr, [facility] [facility] [id number] [place] [address] 45182- 7673 Apr, [facility] [facility] [id number] [place] [address] 97635- 9254 Apr, [place] [id number] [place] [address] 21480- 7443 Apr, Dysuria R30.0 and Well woman exam (no gynecological exam) Z00.00 [facility] [facility] [id number] [place] [address] 81971- 8637 Mar, [facility] [facility] [id number] [place] [address] 14375- 1740 Mar, [facility] [id number] [place] [address] [id number] Mar, Dental examination Z01.20 [facility] [facility] [id number] [place] [address] 78821- 6465 Mar, Chronic diarrhea K52.9 ; Intractable vomiting with nausea, vomiting of unspecified type R11.2 ; Cellulitis, unspecified cellulitis site L03.90 ; Type 2 diabetes mellitus with diabetic polyneuropathy E11.42 and Postinflammatory hyperpigmentation L81.0 [facility] [id number] [place] [address] 91669- 6434 Mar, Unspecified mood [affective] disorder F39 [facility] [facility] [id number], [place] [address]- 4034 Mar, Unspecified mood [affective] disorder F39 [facility] [facility] [id number], [place] [address]- 3426 Mar, [facility] [facility] [address] [facility] [id number] [address]- 4064 Mar, [facility] [facility] [address] [facility] [id number], [place] [address]- 7049 Mar, [facility] [facility] [address] [facility] [id number], [place] [address]- 7916 Mar, [facility] [facility] [id number], [place] [address]- 4795 Mar, [facility] [facility] [id number], [place] [address]- 8205 Mar, [facility] [place] [facility] [id number], [place] [address]- 0740 Feb, Unspecified mood [affective] disorder F39 [facility] [place] [facility] [id number], [place] [address]- 6896 Feb, [facility] [facility] [id number], [place] [address]- 9911 Feb, [facility] [place] [facility] [id number], [place] [address]- 0435 Jan, Unspecified mood [affective] disorder [address] [id number] [id number] Jan, Encounter for dental examination Z01.20 [facility] [facility] [address], [place] [address]- 3247 Jan, [facility] [place] [facility] [id number], [place] [address]- 1654 Jan, [facility] [place] [facility] [address], [place] [address]- 3385 Jan, [facility] [place] [facility] [id number] [place] [address] 23946- 5061 Jan, [facility] [place] [facility] [id number] [place] [address] 18902- 9324 Jan, [facility] [place] [facility] [id number] [place] [address] 86709- 0735 Jan, Abdominal abscess K65.1 and Dental caries K02.9 [facility] [place] [facility] [id number] [place] [address] 03206- 1556 Jan, [facility] [place] [facility] [id number] [place] [address] 11546- 7128 30 Dec, 2014 Diabetes with neurological manifestations, type II or unspecified type, not stated as uncontrolled 250.60 ; Essential hypertension, benign 401.1 ; Concussion 850.9 and Skin texture changes 782.8 [facility] [facility] [id number] [place] [address] 36485- 4113 Dec, [facility] [facility] [id number] [place] [address] 31975- 6584 24 Dec, 2014 [facility] [facility] [id number] [place] [address] 72652- 3432 Dec, [facility] [facility] [id number] [place] [address] 77891- 1704 Dec, [facility] [place] [facility] [id number] [place] [address] 73287- 3012 17 Dec, 2014 Affective disorder 296.90 [facility] [place] [facility] [id number] [place] [address] 26905- 2591 14 Dec, 2014 [facility] [facility] [id number] [place] [address] 19433- 6675 10 Dec, 2014 Affective disorder 296.90 [facility] [place] [facility] [id number] [place] [address] 80359- 5859 04 Dec, 2014 [facility] [place] [facility] [address] [place] [address]- 9936 Dec, 2014 [facility] [facility] [address], [place] [address] 2546 Dec, [facility] [facility] [id number] [place] [address] 19454 2546 Dec, [facility] [facility] [id number] [place] [address] 45530 2546 Nov, Affective disorder 296.90 [facility] [facility] [id number] [place] [address] 06603 2542 Nov, [facility] [place] [facility] [id number] [place] [address] 62541- 0647 Nov, Affective disorder 296.90 [facility] [facility] [id number] [place] [address] 90050- 7840 Nov, Diarrhea 787.91 [facility] [facility] [id number] [place] [address] 31239- 2046 Nov, [facility] [facility] [id number] [place] [address] 85191 254 Nov, Diarrhea 787.91 [facility] [facility] [id number] [place] [address] 38404 2543 Nov, Diarrhea 787.91 and Hyperlipidemia 272.4 [facility] [facility] [id number] [place] [address] 45411 2546 Nov, Diarrhea 787.91 [facility] [facility] [id number] [place] [address] 83429 2546 Nov, Affective disorder 296.90 [facility] [facility] [id number] [place] [address] 20596 2546 Nov, Affective disorder 296.90 [facility] [facility] [id number] [place] [address] 77034- 5764 Nov, Affective disorder 296.90 [facility] [facility] [id number] [place] [address] 12060- 5251 Nov, [facility] [place] [facility] [address], [place] [address]- 1056 Nov, [facility] [place] [facility] [address], [place] [address]- 3728 Nov, [facility] [place] [facility] [address], [place] [address]- 9458 Nov, Episodic mood disorder 296.90 [facility] [place] [facility] [id number] [place] [address] 42092- 0176 Nov, [facility] [place] [facility] [id number] [place] [address] 45975- 0954 Nov, [facility] [place] [facility] [id number] [place] [address] 45447- 9163 Nov, [facility] [place] [facility] [id number] [place] [address] 72329- 5337 Nov, [facility] [place] [facility] [address], [place] [address]- 7798 Nov, [facility] [place] [facility] [id number] [place] [address] 79878- 2998 Nov, Lymphedema 457.1 ; Hyperlipidemia 272.4 ; Essential hypertension, benign 401.1 and Numbness of toes 782.0 [facility] [place] [facility] [address], [place] [address]- 1636 Nov, Episodic mood disorder 296.90 [facility] [place] [facility] [address], [place] [address]- 2938 Oct, [facility] [place] [facility] [address], [place] [address]- 9769 Oct, [facility] [place] [facility] [address], [place] [address]- 3075 Oct, [facility] [place] [facility] [address], [place] [address]- 9355 Oct, [facility] [place] [facility] [address] [facility] [id number] [place] [address]- 5800 14 Oct, 2014 [facility] [address] [facility] [id number] [place] [address]- 7614 Oct, 2014 [facility] [address] [facility] [id number] [place] [address]- 7656 Oct, 2014 [facility] [address] [facility] [id number] [place] [address]- 6413 Oct, 2014 [facility] [address] [facility] [id number] [place] [address]- 2792 Oct, Episodic mood disorder 296.90 [facility] [place] [facility] [address] [facility] [id number] [place] [address]- 7221 30 Sep, 2014 [facility] [address] [facility] [id number] [place] [address]- 7401 Sep, [facility] [address] [facility] [id number] [place] [address]- 8993 Sep, [facility] [address] [facility] [id number] [place] [address]- 5585 Sep, [facility] [id number], [place] [address]- 9865 Sep, [facility] [place] [facility] [id number], [place] [address]- 7882 Sep, Episodic mood disorder 296.90 [facility] [place] [facility] [address] [facility] [id number], [place] [address]- 8678 Sep, Unspecified episodic mood disorder 296.90 [facility] [address] [facility] [id number] [place] [address]- 6617 Sep, [facility] [address] [facility] [id number] [place] [address]- 2549 18 Sep, 2014 [facility] [id number], [place] [address]- 3431 Sep, Episodic mood disorder 296.90 [facility] [place] [facility] [address], [place] [address]- 8785 Sep, [facility] [place] [facility] [id number] [place] [address] 55280- 8638 Sep, [facility] [place] [facility] [id number] [place] [address] 10386- 3332 Sep, [facility] [place] [facility] [id number] [place] [address] 50400- 4614 Sep, Hematemesis 578.0 and Vomiting 787.03 [facility] [place] [facility] [id number] [place] [address] 22235- 1807 Sep, Episodic mood disorder 296.90 [facility] [place] [facility] [id number] [place] [address] 53380- 8592 Sep, [facility] [place] [facility] [id number] [place] [address] 39306- 3324 Sep, [facility] [place] [facility] [id number] [place] [address] 26358- 2986 Sep, Diabetes mellitus without mention of complication, type II or unspecified type, not stated as uncontrolled 250.00 and Other chronic pain 338.29 [facility] [place] [facility] [id number] [address] Sep, Episodic mood disorder 296.90 [facility] [place] [facility] [id number] [place] [address] 25938- 2061 Sep, [facility] [place] [facility] [id number] [place] [address] 99457- 9001 Sep, Episodic mood disorder 296.90 [facility] [place] [facility] [id number] [place] [address]4416- 1120 Sep, [facility] [place] [facility] [id number] [place] [address] 35263- 7432 August, [facility] [place] [facility] [id number] [place] [address] [place] [address] August, [facility] [address] [facility] [id number], [place] [address] August, Episodic mood disorder 296.90 [facility] [address] [facility] [id number] [place] [address] August, [facility] [id number], [place] [address] August, Unspecified episodic mood disorder 296.90 [facility] [address] [facility] [id number] [place] [address] August, Vomiting 787.03 [facility] [id number] [place] [address] 83235- 7563 August, [facility] [id number], [place] [address] August, [facility] [id number], [place] [address] August, [facility] [id number], [place] [address] August, [facility] [id number], [place] [address] August, [facility] [address], [place] [address] Jul, [facility] [id number], [place] [address] Jul, [facility] [id number], [place] [address] Jul, [facility] [id number] [address] Jun, [facility] [place] [facility] [id number] [address] Jun, [facility] [id number], [place] [address] Jun, [facility] [place] [facility] [address] [id number] [place] [address]- 5940 Jun, [facility] [place] [facility] [address] [id number] [place] [address]- 2997 Jun, [facility] [place] [facility] [address] [id number] [place] [address]- 1094 Jun, [facility] [place] [facility] [address] [id number] [place] [address]- 2648 Jun, [facility] [place] [facility] [address] [id number] [place] [address]- 8438 Jun, [facility] [place] [facility] [address] [id number] [place] [address]- 2387 Jun, [facility] [place] [facility] [address] [id number] [place] [address]- 0781 Jun, [facility] [place] [facility] [address] [id number] [place] [address]- 5548 Jun, [facility] [place] [facility] [address] [id number] [place] [address]- 4741 Jun, [facility] [place] [facility] [address] [id number] [place] [address]- 9508 Jun, [facility] [place] [facility] [address] [id number] [place] [address]- [address]19 Jun, [facility] [place] [facility] [address] [id number] [place] [address]- 7293 Jun, [facility] [place] [facility] [address] [id number] [place] [address]- 4968 Jun, [facility] [place] [facility] [address] [id number] [place] [address]- 3106 Jun, [facility] [place] [facility] [address] [id number] [place] [address]- 8750 Jun, [facility] [place] [facility] [address] [id number] [place] [address]- [address]369 23 Jun, 2014 [facility] [place] [facility] [address] [address] [id number] [place] [address] 21 Jun, 2014 [facility] [place] [facility] [address] [id number] [place] [address] 7376 21 Jun, 2014 [facility] [place] [facility] [address] [id number] [place] [address] 3576 20 Jun, 2014 [facility] [place] [facility] [address] [id number] [place] [address] 6137 20 Jun, 2014 [facility] [place] [facility] [address] [id number] [place] [address]- 8198 20 Jun, 2014 [facility] [place] [facility] [address] [id number] [place] [address]- 0707 20 Jun, 2014 [facility] [place] [facility] [address] [id number] [place] [address]- 3234 19 Jun, 2014 [facility] [place] [facility] [address] [id number] [place] [address]- 5079 19 Jun, 2014 [facility] [place] [facility] [address] [id number] [place] [address]- 8471 18 Jun, 2014 [facility] [place] [facility] [address] [id number] [place] [address]- 7010 18 Jun, 2014 [facility] [place] [facility] [address] [id number] [place] [address]- 5568 17 Jun, 2014 [facility] [place] [facility] [address] [id number] [place] [address]- 3862 17 Jun, 2014 [facility] [place] [facility] [address] [id number] [place] [address]- 0596 16 Jun, 2014 [facility] [place] [facility] [address] [id number] [place] [address]- 0756 16 Jun, 2014 [facility] [place] [facility] [address] [id number] [place] [address]- 5012 16 Jun, 2014 [facility] [place] [facility] [address] [id number] [place] [address]- 3790 16 Jun, 2014 [facility] [place] [facility] [address] [id number] [place] [address]- 2407 16 Jun, 2014 [facility] [place] [facility] [address] [id number] [place] [address]- 4516 16 Jun, 2014 [facility] [place] [facility] [address] [id number] [place] [address]- 3621 Jun, [facility] [place] [facility] [address] [id number] [place] [address]- 7053 Jun, [facility] [place] [facility] [address] [id number] [place] [address]- 0689 Jun, [facility] [place] [facility] [address] [id number] [place] [address]- 0543 Jun, [facility] [place] [facility] [address] [id number] [place] [address]- 9756 Jun, [facility] [place] [facility] [address] [id number] [place] [address]- 5541 Jun, [facility] [place] [facility] [address] [id number] [place] [address]- 9741 Jun, [facility] [place] [facility] [address] [id number], [place] [address]- 5880 Jun, [facility] [place] [facility] [address] [id number], [place] [address]- 5218 Jun, 2014 [facility] [place] [facility] [address] [id number] [place] [address]- 1211 Jun, [facility] [place] [facility] [address] [id number] [place] [address]- 1006 Jun, [facility] [place] [facility] [address] [id number] [place] [address]- 8231 Jun, 2014 [facility] [place] [facility] [address] [id number] [place] [address]- 6095 Jun, [facility] [place] [facility] [address] [id number] [place] [address]- 4455 Jun, [facility] [place] [facility] [address] [id number] [place] [address] Jun, [facility] [place] [facility] [address] [id number] [place] [address]- 2168 Jun, 2014 [facility] [place] [facility] [address] [id number] [place] [address]- 7462 Jun, [facility] [place] [facility] [address] [id number] [place] [address]- 8960 Jun, [facility] [place] [facility] [address] [facility] [id number] [place] [address]- 9129 Jun, [facility] [place] [facility] [address] [facility] [id number] [place] [address]- 0194 Jun, [facility] [place] [facility] [address] [facility] [id number] [place] [address]- 3139 May, [facility] [place] [facility] [address] [facility] [id number] [place] [address]- 4504 May, 2014 [facility] [place] [facility] [address] [facility] [id number] [place] [address]- 9343 May, [facility] [place] [facility] [address] [facility] [id number] [place] [address]- 2445 May, 2014 [facility] [place] [facility] [address] [facility] [id number] [place] [address]- 4331 May, [facility] [place] [facility] [address] [id number] [place] [address]- 2791 May, [facility] [place] [facility] [address] [facility] [id number] [place] [address]376 May, 2014 [facility] [place] [facility] [address] [facility] [id number] [place] [address]- 9291 May, 2014 [facility] [place] [facility] [address] [facility] [id number] [place] [address]- 5259 May, 2014 [facility] [place] [facility] [address] [facility] [id number] [place] [address]- 5076 20 May, 2014 [facility] [place] [facility] [address] [facility] [id number] [place] [address]- 3788 18 May, 2014 [facility] [place] [facility] [address] [facility] [id number] [place] [address]- 8654 18 May, 2014 [facility] [place] [facility] [address] [facility] [id number] [place] [address]- 1266 13 May, 2014 [facility] [place] [facility] [address] [facility] [id number] [place] [address]- 9636 13 May, 2014 [facility] [place] [facility] [address] [id number] [place] [address] 2829 May, 2014 [facility] [place] [facility] [address] [facility] [id number] [place] [address]- 6742 May, 2014 [facility] [place] [facility] [address] [facility] [id number] [place] [address]- 0832 May, 2014 [facility] [place] [facility] [address] [facility] [id number] [place] [address]- 3060 May, 2014 [facility] [place] [facility] [address] [facility] [id number] [place] [address]- 4582 May, 2014 [facility] [place] [facility] [address] [facility] [id number], [place] [address]- 2542 May, 2014 [facility] [place] [facility] [address] [facility] [id number] [place] [address]- 1393 May, 2014 [facility] [place] [facility] [address] [facility] [id number], [place] [address]- 254 May, 2014 [facility] [place] [facility] [address] [facility] [id number] [place] [address]- 3831 May, [facility] [place] [facility] [address] [id number] [place] [address]- 7363 May, [facility] [place] [facility] [address] [id number] [place] [address]- 8672 May, [facility] [place] [facility] [address] [id number] [place] [address]- 8159 May, [facility] [place] [facility] [address] [id number] [place] [address]- 7027 May, [facility] [place] [facility] [address] [id number] [place] [address]- 3994 Apr, [facility] [place] [facility] [address] [id number] [place] [address]- 6828 Apr, [facility] [place] [facility] [address] [id number] [place] [address]- 2243 Apr, [facility] [place] [facility] [address] [id number] [place] [address]- 2471 Apr, [facility] [place] [facility] [address] [id number] [place] [address]- 4501 Apr, [facility] [place] [facility] [address] [id number] [place] [address]- 1531 Apr, [facility] [place] [facility] [address] [id number], [place] [address]- 0703 Apr, [facility] [place] [facility] [address] [id number], [place] [address]- 1760 Apr, [facility] [place] [facility] [address] [id number] [place] [address]- 6860 Apr, [facility] [place] [facility] [address] [id number], [place] [address]- 0096 Apr, [facility] [place] [facility] [address] [id number], [place] [address]- 5048 Apr, [facility] [place] [facility] [address] [id number] [place] [address]- 4743 Apr, [facility] [address] [id number] [place] [address]- 9108 Apr, [facility] [place] [facility] [address] [id number] [place] [address]- 3545 Apr, [facility] [place] [facility] [address] [id number] [place] [address]- 4805 Apr, [facility] [place] [facility] [address] [id number] [place] [address]- 3373 Apr, [facility] [place] [facility] [address] [id number] [place] [address]- 2710 Apr, [facility] [place] [facility] [address] [id number] [place] [address]- 0505 Apr, [facility] [place] [facility] [address] [id number] [place] [address]- 5038 Apr, [facility] [place] [facility] [address] [id number] [place] [address]- 5883 Apr, [facility] [place] [facility] [address] [id number] [place] [address]- 6456 Mar, [facility] [place] [facility] [address] [id number] [place] [address]- 9976 Mar, [facility] [place] [facility] [address] [id number] [place] [address]- 0230 Mar, [facility] [place] [facility] [address] [id number] [place] [address]- 8439 Mar, [facility] [place] [facility] [address] [id number] [place] [address]- 6280 Mar, [facility] [place] [facility] [address] [id number] [place] [address]- 5442 Mar, [facility] [place] [facility] [address] [id number] [place] [address]- 3626 Mar, [facility] [place] [facility] [address] [id number] [place] [address]- 8366 18 Mar, 2014 [facility] [place] [facility] [address] [id number] [place] [address]- 8568 15 Mar, 2014 [facility] [place] [facility] [address] [id number] [place] [address]- 2212 15 Mar, 2014 [facility] [place] [facility] [address] [id number] [place] [address]- 5783 15 Mar, 2014 [facility] [place] [facility] [address] [id number] [place] [address]- 0560 15 Mar, 2014 [facility] [place] [facility] [address] [id number] [place] [address]- 0047 Mar, [facility] [place] [facility] [address] [id number] [place] [address]- 5972 Mar, [facility] [place] [facility] [address] [id number] [place] [address]- 7015 Mar, [facility] [place] [facility] [address] [id number] [place] [address]- 1589 Mar, [facility] [place] [facility] [address] [id number] [place] [address]- 5811 Feb, [facility] [place] [facility] [address] [id number] [place] [address]- 4404 Feb, [facility] [place] [facility] [address] [id number] [place] [address]- 5811 Feb, [facility] [place] [facility] [address] [id number] [place] [address]- 1866 Feb, [facility] [place] [facility] [address] [id number] [place] [address]- 7340 Feb, [facility] [place] [facility] [address] [id number] [place] [address]- 6002 Feb, [facility] [place] [facility] [address] [id number], [place] [address]- 4814 19 Feb, 2014 [facility] [place] [facility] [address] [id number] [place] [address]- 5853 18 Feb, 2014 [facility] [place] [facility] [address] [id number] [place] [address]- 0848 18 Feb, 2014 [facility] [place] [facility] [address] [id number] [place] [address]- 9579 17 Feb, 2014 [facility] [place] [facility] [address] [id number] [place] [address]- 3172 17 Feb, 2014 [facility] [place] [facility] [address] [id number] [place] [address]- 7535 17 Feb, 2014 [facility] [place] [facility] [address] [id number] [place] [address]- 1859 17 Feb, 2014 [facility] [place] [facility] [address] [id number] [place] [address]- 9386 14 Feb, 2014 [facility] [place] [facility] [address] [id number] [place] [address]- 9655 14 Feb, 2014 [facility] [place] [facility] [address] [id number] [place] [address]- 9973 14 Feb, 2014 [facility] [place] [facility] [address] [id number] [place] [address]- 7828 14 Feb, 2014 [facility] [place] [facility] [address] [id number], [place] [address]- 0233 10 Feb, 2014 [facility] [place] [facility] [address] [id number], [place] [address]- 0632 10 Feb, 2014 [facility] [place] [facility] [address] [id number] [place] [address]- 2838 Feb, [facility] [place] [facility] [address] [id number] [place] [address]- 7340 Feb, [facility] [place] [facility] [address] [id number] [place] [address]- 3191 30 Jan, 2014 [facility] [place] [facility] [address] [id number] [place] [address]- 2832 30 Jan, 2013 [facility] [place] [facility] [address] [id number] [place] [address]- 8143 30 Jan, 2013 [facility] [place] [facility] [address] [id number] [place] [address]- 1934 30 Jan, 2014 [facility] [place] [facility] [address] [id number] [place] [address]- 6638 24 Jan, 2014 [facility] [place] [facility] [address] [id number] [place] [address]- 1803 24 Jan, 2014 [facility] [place] [facility] [address] [id number] [place] [address]- 4031 Jan, [facility] [place] [facility] [address] [id number] [place] [address]- 9878 Jan, [facility] [place] [facility] [address] [id number] [place] [address]- 1530 Jan, [facility] [place] [facility] [address] [id number] [place] [address]- 9107 20 Jan, 2014 [facility] [place] [facility] [address] [id number] [place] [address]- 4520 17 Jan, 2014 [facility] [place] [facility] [address] [id number] [place] [address]- 6918 17 Jan, 2014 [facility] [place] [facility] [address] [id number] [place] [address]- 3945 17 Jan, 2013 [facility] [place] [facility] [address] [id number] [place] [address]- 6174 17 Jan, 2013 [facility] [place] [facility] [address] [id number] [place] [address]- 2612 15 Jan, 2014 [facility] [place] [facility] [address] [id number] [place] [address]- 4042 15 Jan, 2013 [facility] [place] [facility] [address] [id number] [place] [address]- 3316 14 Jan, 2014 [facility] [place] [facility] [address] [id number] [place] [address]- 8911 14 Jan, 2014 [facility] [place] [facility] [address] [id number] [place] [address]- 8744 13 Jan, 2014 [facility] [place] [facility] [address] [id number] [place] [address]- 1066 Jan, [facility] [place] [facility] [address] [id number] [place] [address]- 7346 Jan, [facility] [place] [facility] [address] [id number] [place] [address]- 0662 Jan, [facility] [place] [facility] [address] [id number] [place] [address]- 6726 10 Jan, 2014 [facility] [place] [facility] [address] [id number] [place] [address]- 0852 Jan, [facility] [place] [facility] [address] [id number], [place] [address]- 4666 Jan, [facility] [place] [facility] [address] [id number] [place] [address]- 0803 25 Dec, 2013 [facility] [place] [facility] [address] [id number], [place] [address]- 8292 25 Dec, 2013 [facility] [place] [facility] [address] [id number], [place] [address]- 1422 23 Dec, 2013 [facility] [place] [facility] [address] [id number], [place] [address]- 6869 23 Dec, 2013 [facility] [place] [facility] [address] [id number], [place] [address]- 8515 19 Dec, 2013 [facility] [place] [facility] [address] [id number], [place] [address]- 5130 19 Dec, 2013 [facility] [place] [facility] [address] [id number], [place] [address]- 7551 17 Dec, 2013 [facility] [place] [facility] [address] [id number], [place] [address]- 8854 17 Dec, 2013 [facility] [place] [facility] [address] [id number] [place] [address]- 1104 09 Sep, 2013 [facility] [place] [facility] [address] [id number] [place] [address]- 8356 09 Dec, 2013 [facility] [place] [facility] [address] [id number] [place] [address]- 4862 08 Sep, 2013 [facility] [place] [facility] [address] [id number] [place] [address]- 4940 08 Sep, 2013 [facility] [place] [facility] [address] [id number] [place] [address]- 8982 04 Dec, 2013 [facility] [place] [facility] [address] [id number] [place] [address]- 8677 Dec, 2013 [facility] [place] [facility] [address] [id number] [place] [address]- 3743 Dec, 2013 [facility] [place] [facility] [address] [id number] [place] [address]- 6453 Dec, 2013 [facility] [place] [facility] [address] [id number] [place] [address]- 9616 Dec, 2013 [facility] [place] [facility] [address] [id number] [place] [address]- 0418 Dec, 2013 [facility] [place] [facility] [address] [id number] [place] [address]- 2700 Nov, [facility] [place] [facility] [address] [id number] [place] [address]- 5350 Nov, [facility] [place] [facility] [address] [id number] [place] [address]- 5959 Nov, [facility] [place] [facility] [address] [id number] [place] [address]- 5426 Nov, [facility] [place] [facility] [address] [id number] [place] [address]- 6355 Nov, [facility] [place] [facility] [address] [id number] [place] [address]- 8755 Nov, [facility] [place] [facility] [address] [id number] [place] [address]- 9205 Nov, [facility] [place] [facility] [address] [id number] [place] 1296 Nov, [facility] [place] [facility] [address] [id number] [place] [address]- 1835 Nov, [facility] [place] [facility] [address] [id number] [place] [address]- 2984 Nov, [facility] [place] [facility] [address] [id number] [place] [address]- 3911 Nov, [facility] [place] [facility] [address] [id number] [place] [address]- 7657 Nov, [facility] [place] [facility] [address] [id number] [place] [address]- 8715 Oct, [facility] [place] [facility] [address] [id number] [place] [address]- 0431 Oct, [facility] [place] [facility] [address] [id number] [place] [address] Oct, [facility] [place] [facility] [address] [id number] [place] [address] Oct, [facility] [place] [facility] [address] [id number] [place] [address] Oct, [facility] [place] [facility] [address] [id number] [place] [address] Oct, [facility] [place] [facility] [address] [id number] [place] [address] Oct, [facility] [place] [facility] [address] [id number] [place] [address] Oct, [facility] [place] [facility] [address] [id number] [place] [address] 22 Oct, 2013 [facility] [place] [facility] [address] [id number] [place] [address] 22 Oct, 2013 [facility] [place] [facility] [address] [id number] [place] [address] 16 Oct, 2013 [facility] [place] [facility] [address] [id number] [place] [address] 16 Oct, 2013 [facility] [place] [facility] [address] [id number] [place] [address] 14 Oct, 2013 [facility] [place] [facility] [address] [id number] [place] [address] 14 Oct, 2013 [facility] [place] [facility] [address] [id number] [place] [address] Oct, [facility] [place] [facility] [address] [id number] [place] [address] Oct, [facility] [place] [facility] [address] [id number] [place] [address] 1987 Oct, [facility] [place] [facility] [address] [id number] [place] [address] 27 Sep, 2013 [facility] [place] [facility] [address] [id number] [place] [address] 27 Sep, 2013 [facility] [place] [facility] [address] [id number] [place] [address] 47[address] Sep, [facility] [place] [facility] [address] [id number] [place] [address] 20 Sep, 2013 [facility] [place] [facility] [address] [id number] [place] [address]- [address] 18 Sep, 2013 [facility] [place] [facility] [address] [id number] [place] [address]- [address] 18 Sep, 2013 [facility] [place] [facility] [address] [id number] [place] [address] 17 Sep, 2013 [facility] [place] [facility] [address] [id number] [place] [address]- [address] 17 Sep, 2013 [facility] [place] [facility] [address] [id number] [place] [address] Sep, [facility] [place] [facility] [address] [id number] [place] [address] Sep, [facility] [place] [facility] [address] [id number] [place] [address] Sep, [facility] [place] [facility] [address] [id number] [place] [address]- [address] Sep, [facility] [place] [facility] [address] [id number] [place] [address] Sep, [facility] [place] [facility] [address] [id number] [place] [address] Sep, [facility] [place] [facility] [address] [id number] [place] [address]- [address] Sep, [facility] [place] [facility] [address] [id number] [place] [address]- 1668 Sep, [facility] [place] [facility] [address] [id number] [place] [address] Sep, [facility] [place] [facility] [address] [id number] [place] [address] Sep, [facility] [place] [facility] [address] [id number] [place] [address] 4969 Sep, [facility] [place] [facility] [address] [id number] [place] [address] Sep, [facility] [place] [facility] [address] [id number] [place] [address] Sep, [facility] [place] [facility] [address] [id number] [place] [address]- [address] Sep, [facility] [place] [facility] [address] [id number] [place] [address] 39[address] August, [facility] [place] [facility] [address] [id number] [place] [address] 270[address] August, [facility] [place] [facility] [address] [id number] [place] [address]- [address] August, [facility] [place] [facility] [address] [id number] [place] [address] August, [facility] [place] [facility] [address] [id number] [place] [address] August, [facility] [place] [facility] [address] [id number] [place] [address] August, [facility] [place] [facility] [address] [id number] [place] [address] August, [facility] [place] [facility] [address] [id number] [place] [address] August, [facility] [place] [facility] [address] [id number] [place] [address]- [address] August, [facility] [place] [facility] [address] [id number] [place] [address]- [address]138 August, [facility] [place] [facility] [address] [id number] [place] [address]- 49[address] August, [facility] [place] [facility] [address] [id number] [place] [address]- 9069 Jul, [facility] [place] [facility] [address] [id number] [place] [address]- 1517 Jul, [facility] [place] [facility] [address] [id number] [place] [address] 87[address] Jul, [facility] [place] [facility] [address] [id number] [place] [address]- 6[address] Jul, [facility] [place] [facility] [address] [id number] [place] [address] Jul, [facility] [place] [facility] [address] [id number] [place] [address]- 1673 Jul, [facility] [place] [facility] [address] [id number] [place] [address]- [address] Jul, [facility] [place] [facility] [address] [id number] [place] [address]- 8879 Jul, [facility] [place] [facility] [address] [id number] [place] [address]- 275[address] Jul, [facility] [place] [facility] [address] [id number] [place] [address]- 3037 Jul, [facility] [place] [facility] [address] [id number] [place] [address]- 7160 16 Jul, 2013 [facility] [place] [facility] [address] [id number] [place] [address]- 3468 Jul, [facility] [place] [facility] [address] [id number] [place] [address]- 7888 Jul, [facility] [place] [facility] [address] [id number] [place] [address]- 38[address] Jul, [facility] [place] [facility] [address] [id number] [place] [address]- 5849 Jul, [facility] [place] [facility] [address] [id number] [place] [address]- 1616 Jul, [facility] [place] [facility] [address] [id number] [place] [address]- [address] Jul, [facility] [place] [facility] [address] [id number] [place] [address]- 4880 05 Jul, 2013 [facility] [place] [facility] [address] [id number] [place] [address]- 4180 Jul, [facility] [place] [facility] [address] [id number] [place] [address]- 0956 Jul, [facility] [place] [facility] [address] [id number] [place] [address]- 9114 Jul, [facility] [place] [facility] [address] [id number] [place] [address]- 2631 Jul, [facility] [address] [id number] [place] [address]- 3918 Jul, [facility] [place] [facility] [address] [id number] [place] [address]- [address]386 Jun, [facility] [place] [facility] [address] [id number] [place] [address]- 8791 Jun, [facility] [place] [facility] [address] [id number] [place] [address]- 76[address] Jun, [facility] [place] [facility] [address] [id number] [place] [address]- 7877 Jun, [facility] [place] [facility] [address] [id number] [place] [address] Jun, [facility] [place] [facility] [address] [id number] [place] [address] Jun, [facility] [place] [facility] [address] [id number] [place] [address] 6[address] Jun, [facility] [place] [facility] [address] [id number] [place] [address] 9[address] Jun, [facility] [address] [id number] [place] [address] 7448 Jun, [facility] [place] [facility] [address] [id number] [place] [address] 8392 Jun, [facility] [place] [facility] [address] [id number] [place] [address] 3812 Jun, [facility] [place] [facility] [address] [id number] [place] [address] 7501 Jun, [facility] [place] [facility] [address] [id number] [place] [address] 4310 May, [facility] [place] [facility] [address] [id number] [place] [address] May, [facility] [place] [facility] [address] [id number] [place] [address] Apr, [facility] [place] [facility] [address] [id number] [place] [address]- 4723 Apr, [facility] [place] [facility] [address] [id number] [place] [address]- 9187 Apr, [facility] [place] [facility] [address] [id number] [place] [address]- 5392 Apr, [facility] [place] [facility] [address] [id number] [place] [address]- 8864 Apr, [facility] [place] [facility] [address] [id number] [place] [address]- 3796 Apr, [facility] [place] [facility] [address] [id number] [place] [address]- 3625 Apr, [facility] [place] [facility] [address] [id number] [place] [address]- 5402 Apr, [facility] [place] [facility] [address] [id number] [place] [address]- 1673 Apr, [facility] [place] [facility] [address] [id number] [place] [address]- 3346 Apr, [facility] [place] [facility] [address] [id number] [place] [address]- 5606 Apr, [facility] [place] [facility] [address] [id number] [place] [address]- 9842 Mar, [facility] [place] [facility] [address] [id number] [place] [address]- 5277 Mar, [facility] [place] [facility] [address] [id number] [place] [address]- 7450 Mar, [facility] [place] [facility] [address] [id number] [place] [address] Mar, [facility] [place] [facility] [address] [id number], [place] [address]- 8344 Feb, [facility] [address] [id number] [place] [address]- 8686 Feb, [facility] [place] [facility] [address] [id number], [place] [address] 8983 Feb, [facility] [place] [facility] [address] [id number] [place] [address]- 5505 Feb, [facility] [place] [facility] [address] [id number], [place] [address] 8472 Feb, [facility] [place] [facility] [address] [id number] [place] [address]- 4541 Feb, [facility] [place] [facility] [address] [id number], [place] [address]- 8413 Feb, [facility] [address] [id number], [place] [address] 8037 Feb, [facility] [place] [facility] [address] [id number], [place] [address]- 2175 Feb, [facility] [place] [facility] [address] [id number], [place] [address]- 5254 Feb, [facility] [place] [facility] [address] [id number], [place] [address] 2101 Feb, [facility] [place] [facility] [address] [id number], [place] [address] 8458 Jan, [facility] [place] [facility] [address] [id number], [place] [address]- 4984 Jan, [facility] [place] [facility] [address] [id number], [place] [address]- 3448 Jan, [facility] [place] [facility] [address] [id number], [place] [address]- 9024 Jan, [facility] [place] [facility] [address] [id number], [place] [address]- 2549 Jan, [facility] [place] [facility] [address] [id number] [place] [address]- 6150 10 Jan, 2012 [facility] [place] [facility] [address] [id number] [place] [address]- 8386 03 Jan, 2013 [facility] [place] [facility] [address] [id number] [place] [address] 2542 02 Jan, 2013 [facility] [place] [facility] [address] [id number] [place] [address]- 3248 30 Dec, 2012 [facility] [place] [facility] [address] [id number] [place] [address] 2544 25 Dec, 2012 [facility] [place] [facility] [address] [id number] [place] [address]- 2940 18 Dec, 2012 [facility] [place] [facility] [address] [id number] [place] [address]- 7448 17 Dec, 2012 [facility] [place] [facility] [address] [id number] [place] [address]- 2111 17 Dec, 2012 [facility] [place] [facility] [address] [id number] [place] [address]- 1253 16 Dec, 2012 [facility] [place] [facility] [address] [id number] [place] [address]- 2295 13 Dec, 2012 [facility] [place] [facility] [address] [id number] [place] [address] 2549 11 Dec, 2012 [facility] [place] [facility] [address] [id number] [place] [address]- 2548 05 Dec, 2012 [facility] [place] [facility] [address] [id number] [place] [address] 2543 04 Dec, 2012 [facility] [place] [facility] [address] [id number] [place] [address] 2547 30 Nov, 2012 [facility] [place] [facility] [address] [id number] [place] [address] 2545 29 Nov, 2012 [facility] [place] [facility] [address] [id number] [place] [address]- 7020 Nov, [facility] [place] [facility] [address] [id number] [place] [address]- 3395 16 Nov, 2012 [facility] [place] [facility] [address] [id number] [place] [address]- 5221 14 Nov, 2012 [facility] [place] [facility] [address] [id number] [place] [address]- 9587 Nov, [facility] [place] [facility] [address] [id number] [place] [address]- 0662 05 Nov, 2012 [facility] [place] [facility] [address] [id number] [place] [address]- 5665 Oct, [facility] [place] [facility] [address] [id number] [place] [address]- 8933 Oct, [facility] [place] [facility] [address] [id number] [place] [address]- 2361 Oct, [facility] [place] [facility] [address] [id number] [place] [address]- 4372 17 Oct, 2012 [facility] [place] [facility] [address] [id number] [place] [address]- 3904 15 Oct, 2012 [facility] [place] [facility] [address] [id number] [place] [address]- 2239 Oct, [facility] [place] [facility] [address] [id number] [place] [address]- 6723 28 Sep, 2012 [facility] [place] [facility] [address] [id number] [place] [address]- 1304 28 Sep, 2012 [facility] [place] [facility] [address] [id number] [place] [address]- 0107 27 Sep, 2012 [facility] [place] [facility] [address] [id number] [place] [address]- 9857 14 Sep, 2012 [facility] [place] [facility] [address] [id number] [place] [address]- 3668 13 Sep, 2012 [facility] [place] [facility] [address] [id number] [place] [address]- 5956 Sep, [facility] [address] [id number] [place] [address] 6892 Sep, [facility] [address] [id number] [place] [address]- 2267 Sep, [facility] [address] [id number] [place] [address]- 2943 Sep, [facility] [address] [id number] [place] [address] 3124 August, [facility] [address] [id number] [place] [address]- 5768 August, [facility] [address] [id number] [place] [address]- 5612 August, [facility] [address] [id number] [place] [address]- 6367 August, [facility] [address] [id number] [place] [address]- 9499 August, [facility] [address] [id number] [place] [address]- 5089 August, [facility] [address] [id number] [place] [address]- 6172 August, [facility] [address] [id number] [place] [address]- 9153 August, [facility] [address] [id number] [place] [address]- 4833 Jul, [facility] [address] [id number] [place] [address]- 1456 Jul, [id number] [facility] [address] [id number] [place] [address]- 2198 Jun, [facility] [place] [facility] [address] [id number] [place] [address]- 5654 Jun, [facility] [address] [id number] [place] [address]- 1316 Jun, [facility] [place] [facility] [address] [id number] [place] [address]- 5698 Jun, [facility] [address] [id number] [place] [address]- 1561 Jun, [facility] [address] [id number] [place] [address]- 7702 Jun, [facility] [address] [id number] [place] [address]- 5627 May, [facility] [address] [id number] [place] [address]- 6147 May, [facility] [address] [id number] [place] [address]- 8520 May, [facility] [address] [id number] [place] [address]- 6597 May, [facility] [address] [id number] [place] [address]- 0872 May, [facility] [address] [id number] [place] [address]- 2608 Apr, [facility] [address] [id number] [place] [address]- 1887 Apr, [facility] [address] [id number] [place] [address]- 5930 Apr, [facility] [place] [facility] [address] [id number] [place] [address]- 3652 Apr, [facility] [place] [facility] [address] [id number] [place] [address]- 7534 Apr, [facility] [place] [facility] [address] [id number] [place] [address]- 3961 Apr, [facility] [place] [facility] [address] [id number] [place] [address]- 7778 Mar, [facility] [place] [facility] [address] [id number] [place] [address]- 9846 Mar, [facility] [place] [facility] [address] [id number] [place] [address]- 0266 Mar, [facility] [place] [facility] [address] [id number] [place] [address]- 7326 Mar, [facility] [place] [facility] [address] [id number] [place] [address]- 8307 Mar, [facility] [place] [facility] [address] [id number] [place] [address]- 3746 Mar, [facility] [place] [facility] [address] [id number] [place] [address]- 8190 Mar, [facility] [place] [facility] [address] [id number] [place] [address]- 0776 Mar, [facility] [place] [facility] [address] [id number] [place] [address]- 0785 Mar, [facility] [place] [facility] [address] [id number] [place] [address]- 3511 Mar, [facility] [place] [facility] [address] [id number] [place] [address]- 5013 Mar, [facility] [place] [facility] [address] [id number], [place] [address]- 5363 Feb, [facility] [place] [facility] [address] [id number] [place] [address]- 7836 Feb, [facility] [place] [facility] [address] [id number] [place] [address]- 1749 Feb, [facility] [place] [facility] [address] [id number] [place] [address]- 8076 Feb, [facility] [place] [facility] [address] [id number] [place] [address]- 6730 Feb, [facility] [place] [facility] [address] [id number] [place] [address]- 4100 Feb, [facility] [place] [facility] [address] [id number] [place] Feb, [facility] [place] [facility] [address] [id number] [place] [address]- 4807 Feb, [facility] [place] [facility] [address] [id number] [place] [address]- 3172 Feb, [facility] [place] [facility] [address] [id number] [place] Feb, [facility] [place] [facility] [address] [id number] [place] [address]- 9526 Feb, [facility] [place] [facility] [address] [facility] [id number] [place] [address]- 7851 Jan, [facility] [place] [facility] [address] [id number] [place] [address]- 7300 Jan, [facility] [place] [facility] [address] [id number] [place] [address]- 2256 Jan, [facility] [place] [facility] [address] [facility] [id number] [place] [address]- 6435 Jan, [facility] [place] [facility] [address] [id number] [place] [address]- 3836 Jan, [facility] [place] [facility] [address] [id number] [place] [address]- 7836 Jan, [facility] [place] [facility] [address] [id number] [place] 8811 Jan, [facility] [place] [facility] [address] [id number] [place] [address]- 3682 24 Dec, 2011 [facility] [place] [facility] [address] [id number] [place] [address]- 7725 17 Dec, 2011 [facility] [place] [facility] [address] [id number] [place] [address]- 3968 13 Dec, 2011 [facility] [place] [facility] [address] [id number] [place] [address]- 9063 12 Dec, 2011 [facility] [place] [facility] [address] [id number] [place] [address]- 5304 23 Nov, 2011 [facility] [place] [facility] [address] [id number] [place] [address]- 8246 Nov, [facility] [place] [facility] [address] [id number] [place] [address]- 0613 Nov, [facility] [place] [facility] [address] [id number] [place] [address]- 4172 15 Nov, 2011 [facility] [place] [facility] [address] [id number] [place] [address]- 4676 14 Nov, 2011 [facility] [place] [facility] [address] [id number] [place] [address]- 9986 Nov, [facility] [place] [facility] [address] [id number] [place] [address]- 3915 Nov, [facility] [place] [facility] [address] [id number] [place] [address]- 6560 Nov, [facility] [place] [facility] [address] [id number] [place] [address]- 8027 Nov, [facility] [place] [facility] [address] [id number] [place] [address]- 9957 Nov, [facility] [place] [facility] [address] [id number] [place] [address]- 7236 Nov, [facility] [place] [facility] [address] [id number] [place] [address]- 3750 Nov, [facility] [place] [facility] [address] [id number] [place] [address]- 4369 Nov, [facility] [place] [facility] [address] [id number] [place] [address]- 2881 Oct, [facility] [place] [facility] [address] [id number] [place] [address]- 1476 Oct, [facility] [place] [facility] [address] [id number] [place] [address]- 1171 Oct, [facility] [place] [facility] [address] [id number] [place] [address]- 6687 Oct, [facility] [place] [facility] [address] [id number] [place] [address]- 7166 Oct, [facility] [place] [facility] [address] [id number] [place] [address]- 7383 Oct, [facility] [place] [facility] [address] [id number] [place] [address]- 3135 Oct, [facility] [place] [facility] [address] [id number] [place] [address]- 7250 Oct, [facility] [place] [facility] [address] [id number] [place] [address]- 4279 Oct, [facility] [place] [facility] [address] [id number] [place] [address]- 5837 Sep, [facility] [place] [facility] [address] [id number] [place] [address]- 9269 Sep, [facility] [place] [facility] [address] [id number] [place] [address]- 2124 Sep, [facility] [place] [facility] [address] [id number] [place] [address]- 1670 Sep, [facility] [place] [facility] [address] [id number] [place] [address]- 6242 Sep, [facility] [place] [facility] [address] [id number] [place] [address]- 8671 Sep, [facility] [place] [facility] [address] [id number] [place] [address]- 2394 Sep, [facility] [place] [facility] [address] [id number], [place] [address]- 4705 Sep, [facility] [place] [facility] [id number] [address]69 August, [facility] [place] [facility] [id number] [address] August, [facility] [place] [facility] [id number] [address]388 August, [facility] [place] [facility] [address] [facility] [id number], [place] [address]- 6806 August, [facility] [place] [facility] [id number] 1050 August, [facility] [place] [facility] [id number], [place] [address]- 3584 August, [facility] [place] [facility] [id number], [place] [address]- 8150 August, [facility] [place] [facility] [id number], [place] [address]- 2013 August, [facility] [place] [facility] [id number], [place] [address]- 5919 August, [facility] [place] [facility] [address] [id number], [place] [address]- 5449 August, [facility] [place] [facility] [address] [id number], [place] [address]- 5812 August, [facility] [place] [facility] [address] [id number], [place] [address]- 6989 August, [facility] [place] [facility] [address] [id number], [place] [address]- 7188 Oct, IMMUNIZATIONS No Known Immunizations SOCIAL HISTORY [...] Hospitalization History suicidal ideations-[place] 12/28 Hospitalization History hypoxia--[facility] 02/13/2016 Hospitalization History shortness of breath at june 2016 Hospitalization History Shortness of breath at august 2016 Hospitalization History SOB, chest pain at 12/2016
--- OUTSIDE RECORDS SUMMARY | 2018-02-11 12:53 | XMS REPORT ---
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 [facility] [id number] [place] [address] 85488- 2718 Apr, [place] [id number] [place] [address] 42281- 9182 Apr, Dysuria R30.0 and Well woman exam (no gynecological exam) Z00.00 [facility] [id number] [place] [address] 57921- 3081 Mar, [facility] [id number] [place] [address] 64780- 0501 Mar, [facility] [address] [place] [address] [id number] Mar, Dental examination Z01.20 [facility] [id number] [place] [address] 65341- 4837 Mar, Chronic diarrhea K52.9 ; Intractable vomiting with nausea, vomiting of unspecified type R11.2 ; Cellulitis, unspecified cellulitis site L03.90 ; Type 2 diabetes mellitus with diabetic polyneuropathy E11.42 and Postinflammatory hyperpigmentation L81.0 [facility] [address] [place] [address] 54204- 9587 Mar, Unspecified mood [affective] disorder F39 [facility] [address] [id number], [place] [address]- 7857 Mar, Unspecified mood [affective] disorder F39 [facility] [address] [id number], [place] [address]- 4860 Mar, [facility] [address] [facility] [id number], [place] [address]- 8210 Mar, [facility] [address] [facility] [id number], [place] [address]- 4846 Mar, [facility] [address] [facility] [id number], [place] [address]- 6212 Mar, [facility] [id number], [place] [address]- 8107 Mar, [facility] [id number], [place] [address]- 7936 Mar, [facility] [id number], [place] [address]- 0929 Feb, Unspecified mood [affective] disorder F39 [facility] [id number], [place] [address]- 2576 Feb, [facility] [id number], [place] [address]- 9861 Feb, [facility] [id number], [place] [address]- 1884 Jan, Unspecified mood [affective] disorder F[address] [id number] [id number] Jan, Encounter for dental examination Z01.20 [facility] [address], [place] [address]- 8425 Jan, [facility] [address] [id number], [place] [address]- 4142 Jan, [facility] [address], [place] [address]- 3911 Jan, [facility] [address] [place] [address] 05472- 0608 Jan, [facility] [id number] [place] [address] 56477- 4732 Jan, [facility] [id number] [place] [address] 23289- 2503 Jan, Abdominal abscess K65.1 and Dental caries K02.9 [facility] [id number] [place] [address] 70571- 1527 Jan, [facility] [id number] [place] [address] 01130- 1434 30 Dec, 2014 Diabetes with neurological manifestations, type II or unspecified type, not stated as uncontrolled 250.60 ; Essential hypertension, benign 401.1 ; Concussion 850.9 and Skin texture changes 782.8 [facility] [id number] [place] [address] 25604- 2249 Dec, [facility] [id number] [place] [address] 82694- 3460 24 Dec, 2014 [facility] [id number] [place] [address] 61682- 2277 Dec, [facility] [id number] [place] [address] 57301- 7138 Dec, [facility] [id number] [place] [address] 69669- 7626 17 Dec, 2014 Affective disorder 296.90 [facility] [id number] [place] [address] 05036- 9994 14 Dec, 2014 [facility] [id number] [place] [address] 84101- 8614 10 Dec, 2014 Affective disorder 296.90 [facility] [id number] [place] [address] 70846- 2215 04 Dec, 2014 [facility] [address] [place] [address]- 7697 Dec, 2014 [facility] [address], [place] [address] 2546 Dec, [facility] [address] [place] [address] 56870 2546 Dec, [facility] [id number] [place] [address] 79671 2546 Nov, Affective disorder 296.90 [facility] [id number] [place] [address] 52263 2545 Nov, [facility] [id number] [place] [address] 77116- 0542 Nov, Affective disorder 296.90 [facility] [id number] [place] [address] 78106- 1698 Nov, Diarrhea 787.91 [facility] [id number] [place] [address] 05314- 0516 Nov, [facility] [address] [place] [address] 21828 2548 Nov, Diarrhea 787.91 [facility] [id number] [place] [address] 73222 2543 Nov, Diarrhea 787.91 and Hyperlipidemia 272.4 [facility] [address] [place] [address] 92184 2546 Nov, Diarrhea 787.91 [facility] [address] [place] [address] 09992 2546 Nov, Affective disorder 296.90 [facility] [id number] [place] [address] 70701 2546 Nov, Affective disorder 296.90 [facility] [address] [place] [address] 31237- 8531 Nov, Affective disorder 296.90 [facility] [id number] [place] [address] 41500- 4345 Nov, [facility] [address], [place] [address]- 1696 Nov, [facility] [address], [place] [address]- 5448 Nov, [facility] [address], [place] [address]- 4072 Nov, Episodic mood disorder 296.90 [facility] [address] [place] [address] 88791- 2565 Nov, [facility] [id number] [place] [address] 61857- 3592 Nov, [facility] [id number] [place] [address] 54692- 9889 Nov, [facility] [id number] [place] [address] 13318- 5651 Nov, [facility] [address], [place] [address]- 9077 Nov, [facility] [address] [place] [address] 51664- 7227 Nov, Lymphedema 457.1 ; Hyperlipidemia 272.4 ; Essential hypertension, benign 401.1 and Numbness of toes 782.0 [facility] [address], [place] [address]- 5447 Nov, Episodic mood disorder 296.90 [facility] [address], [place] [address]- 7694 Oct, [facility] [address], [place] [address]- 0617 Oct, [facility] [address], [place] [address]- 4196 Oct, [facility] [address], [place] [address]- 5551 Oct, [facility] [address] [facility] [id number] [place] [address]- 9684 14 Oct, 2014 [facility] [address] [facility] [id number] [place] [address]- 7333 Oct, 2014 [facility] [address] [facility] [id number] [place] [address]- 0772 Oct, 2014 [facility] [address] [facility] [id number] [place] [address]- 7486 Oct, 2014 [facility] [address] [facility] [id number] [place] [address]- 0424 Oct, Episodic mood disorder 296.90 [facility] [address] [facility] [id number] [place] [address]- 3753 30 Sep, 2014 [facility] [address] [facility] [id number] [place] [address]- 7784 Sep, [facility] [address] [facility] [id number] [place] [address]- 5810 Sep, [facility] [address] [facility] [id number] [place] [address]- 0459 Sep, [facility] [id number], [place] [address]- 6792 Sep, [facility] [id number], [place] [address]- 7864 Sep, Episodic mood disorder 296.90 [facility] [address] [facility] [id number], [place] [address]- 6209 Sep, Unspecified episodic mood disorder 296.90 [facility] [address] [facility] [id number] [place] [address]- 3226 Sep, [facility] [address] [facility] [id number] [place] [address]- 7496 18 Sep, 2014 [facility] [id number], [place] [address]- 0149 Sep, Episodic mood disorder 296.90 [facility] [address], [place] [address]- 5701 Sep, [facility] [id number] [place] [address] 48867- 5781 Sep, [facility] [id number] [place] [address] 19921- 5751 Sep, [facility] [id number] [place] [address] 05487- 8368 Sep, Hematemesis 578.0 and Vomiting 787.03 [facility] [id number] [place] [address] 31213- 2895 Sep, Episodic mood disorder 296.90 [facility] [id number] [place] [address] 77704- 0367 Sep, [facility] [id number] [place] [address] 95281- 0232 Sep, [facility] [id number] [place] [address] 40099- 6178 Sep, Diabetes mellitus without mention of complication, type II or unspecified type, not stated as uncontrolled 250.00 and Other chronic pain 338.29 [facility] [id number] [address] Sep, Episodic mood disorder 296.90 [facility] [id number] [place] [address] 03288- 5273 Sep, [facility] [id number] [place] [address] 46736- 6070 Sep, Episodic mood disorder 296.90 [facility] [id number] [place] [address] 04157- 8440 Sep, [facility] [id number] [place] [address] 27688- 7156 August, [facility] [id number] [place] [address] [place] [address]- [address] August, [facility] [address] [facility] [id number] [address] August, Episodic mood disorder 296.90 [facility] [address] [facility] [id number] [place] [address] August, [facility] [address], [place] [address] August, Unspecified episodic mood disorder 296.90 [facility] [address] [facility] [id number] [place] [address]- 4778 August, Vomiting 787.03 [facility] [id number] [place] [address] 86262- 5475 August, [facility] [address], [place] [address] August, [facility] [id number], [place] [address]22 August, [facility] [id number] [address] August, [facility] [address] [place] [address] August, [facility] [id number] [place] [address] Jul, [facility] [facility] [address] [id number] [address] Jul, [facility] [address] [id number] [address] Jul, [facility] [address] [id number] [address] Jun, [facility] [place] [facility] [address] [id number] [address] Jun, [facility] [address] [id number], [place] [address] 7314 Jun, [facility] [place] [facility] [address] [id number] [place] [address] 3973 Jun, [facility] [place] [facility] [address] [id number] [place] [address]- 5448 Jun, [facility] [place] [facility] [address] [id number] [place] [address]- 3953 Jun, [facility] [place] [facility] [address] [id number] [place] [address] 1925 Jun, [facility] [place] [facility] [address] [id number] [place] [address]- 1751 Jun, [facility] [place] [facility] [address] [id number] [place] [address]- 1450 Jun, [facility] [place] [facility] [address] [id number] [place] [address]- 5222 Jun, [facility] [place] [facility] [address] [id number] [place] [address]- 2829 Jun, [facility] [place] [facility] [address] [id number] [place] [address]- 1637 Jun, [facility] [place] [facility] [address] [id number] [place] [address]- 0317 Jun, [facility] [place] [facility] [address] [id number] [place] [address]- 1252 Jun, [facility] [place] [facility] [address] [id number] [place] [address]- 4420 Jun, [facility] [place] [facility] [address] [id number] [place] [address]- 8778 Jun, [facility] [place] [facility] [address] [id number] [place] [address]- 4065 Jun, [facility] [place] [facility] [address] [id number] [place] [address]- 7333 Jun, [facility] [place] [facility] [address] [id number] [place] [address]- 1578 23 Jun, 2014 [facility] [place] [facility] [address] [id number] [place] [address]- 6276 21 Jun, 2014 [facility] [place] [facility] [address] [id number] [place] [address]- 0346 21 Jun, 2014 [facility] [place] [facility] [address] [id number] [place] [address]- 8926 20 Jun, 2014 [facility] [place] [facility] [address] [id number] [place] [address]- 2343 20 Jun, 2014 [facility] [place] [facility] [address] [id number] [place] [address]- 9934 20 Jun, 2014 [facility] [place] [facility] [address] [id number] [place] [address]- 5876 20 Jun, 2014 [facility] [place] [facility] [address] [id number] [place] [address]- 3783 19 Jun, 2014 [facility] [place] [facility] [address] [id number] [place] [address]- 3157 19 Jun, 2014 [facility] [place] [facility] [address] [id number] [place] [address]- 1865 18 Jun, 2014 [facility] [place] [facility] [address] [id number] [place] [address]- 5703 18 Jun, 2014 [facility] [place] [facility] [address] [id number] [place] [address]- 1224 17 Jun, 2014 [facility] [place] [facility] [address] [id number] [place] [address]- 8968 17 Jun, 2014 [facility] [place] [facility] [address] [id number] [place] [address]- 0206 16 Jun, 2014 [facility] [place] [facility] [address] [id number] [place] [address]- 1746 16 Jun, 2014 [facility] [place] [facility] [address] [id number] [place] [address]- 2836 16 Jun, 2014 [facility] [place] [facility] [address] [id number] [place] [address]- 1210 16 Jun, 2014 [facility] [place] [facility] [address] [id number] [place] [address]- 8453 16 Jun, 2014 [facility] [place] [facility] [address] [id number] [place] [address]- 7536 16 Jun, 2014 [facility] [place] [facility] [address] [id number] [place] [address]- 7275 Jun, [facility] [place] [facility] [address] [id number] [place] [address]- 9781 Jun, [facility] [place] [facility] [address] [id number] [place] [address]- 5073 Jun, [facility] [place] [facility] [address] [id number] [place] [address]- 6623 Jun, [facility] [place] [facility] [address] [id number] [place] [address]- 4974 Jun, [facility] [place] [facility] [address] [id number] [place] [address]- 6318 Jun, [facility] [place] [facility] [address] [id number] [place] [address]- 3292 Jun, [facility] [place] [facility] [address] [id number], [place] [address]- 8273 Jun, [facility] [place] [facility] [address] [id number], [place] [address]- 6283 Jun, 2014 [facility] [place] [facility] [address] [id number] [place] [address]- 1081 Jun, [facility] [place] [facility] [address] [id number] [place] [address]- 5924 Jun, [facility] [place] [facility] [address] [id number] [place] [address]- 3748 Jun, 2014 [facility] [place] [facility] [address] [id number] [place] [address]- 2632 Jun, [facility] [place] [facility] [address] [id number] [place] [address]- 3700 Jun, [facility] [place] [facility] [address] [id number] [place] 3116 Jun, [facility] [place] [facility] [address] [id number] [place] [address]- 1722 Jun, 2014 [facility] [place] [facility] [address] [id number] [place] [address]- 1085 Jun, [facility] [place] [facility] [address] [id number] [place] [address]- 4901 Jun, [facility] [place] [facility] [address] [facility] [id number] [place] [address]- 6308 Jun, [facility] [place] [facility] [address] [facility] [id number] [place] [address]- 8069 Jun, [facility] [place] [facility] [address] [facility] [id number] [place] [address]- 0607 May, [facility] [place] [facility] [address] [facility] [id number] [place] [address]- 5925 May, 2014 [facility] [place] [facility] [address] [facility] [id number] [place] [address]- 7123 May, [facility] [place] [facility] [address] [facility] [id number] [place] [address]- 9177 May, 2014 [facility] [place] [facility] [address] [facility] [id number] [place] [address]- 8698 May, [facility] [place] [facility] [address] [id number] [place] [address]- 7061 May, [facility] [place] [facility] [address] [facility] [id number] [place] 9296 May, 2014 [facility] [place] [facility] [address] [facility] [id number] [place] [address]- 3862 May, 2014 [facility] [place] [facility] [address] [facility] [id number] [place] [address]- 6284 May, 2014 [facility] [place] [facility] [address] [facility] [id number] [place] [address]- 2256 20 May, 2014 [facility] [place] [facility] [address] [facility] [id number] [place] [address]- 5053 18 May, 2014 [facility] [place] [facility] [address] [facility] [id number] [place] [address]- 5526 18 May, 2014 [facility] [place] [facility] [address] [facility] [id number] [place] [address]- 8940 13 May, 2014 [facility] [place] [facility] [address] [facility] [id number] [place] [address]- 6244 13 May, 2014 [facility] [place] [facility] [address] [id number] [place] [address]- 4833 May, 2014 [facility] [place] [facility] [address] [facility] [id number] [place] [address]- 7319 May, 2014 [facility] [place] [facility] [address] [facility] [id number] [place] [address]- 6112 May, 2014 [facility] [place] [facility] [address] [facility] [id number] [place] [address]- 7936 May, 2014 [facility] [place] [facility] [address] [facility] [id number] [place] [address]- 4712 May, 2014 [facility] [place] [facility] [address] [facility] [id number], [place] [address]- 2541 May, 2014 [facility] [place] [facility] [address] [facility] [id number] [place] [address]- 1890 May, 2014 [facility] [place] [facility] [address] [facility] [id number], [place] [address]- 2548 May, 2014 [facility] [place] [facility] [address] [facility] [id number] [place] [address]- 3394 May, [facility] [place] [facility] [address] [id number] [place] [address]- 1365 May, [facility] [place] [facility] [address] [id number] [place] [address]- 2238 May, [facility] [place] [facility] [address] [id number] [place] [address]- 3668 May, [facility] [place] [facility] [address] [id number] [place] [address]- 9539 May, [facility] [place] [facility] [address] [id number] [place] [address]- 8213 Apr, [facility] [place] [facility] [address] [id number] [place] [address]- 8977 Apr, [facility] [place] [facility] [address] [id number] [place] [address]- 0504 Apr, [facility] [place] [facility] [address] [id number] [place] [address]- 2111 Apr, [facility] [place] [facility] [address] [id number] [place] [address]- 9656 Apr, [facility] [place] [facility] [address] [id number] [place] [address]- 3788 Apr, [facility] [place] [facility] [address] [id number], [place] [address]- 5109 Apr, [facility] [place] [facility] [address] [id number], [place] [address]- 8918 Apr, [facility] [place] [facility] [address] [id number] [place] [address]- 7296 Apr, [facility] [place] [facility] [address] [id number], [place] [address]- 1390 Apr, [facility] [place] [facility] [address] [id number], [place] [address]- 7376 Apr, [facility] [place] [facility] [address] [id number] [place] [address]- 1566 Apr, [facility] [address] [id number] [place] [address]- 5671 Apr, [facility] [place] [facility] [address] [id number] [place] [address]- 9124 Apr, [facility] [place] [facility] [address] [id number] [place] [address]- 1360 Apr, [facility] [place] [facility] [address] [id number] [place] [address]- 9611 Apr, [facility] [place] [facility] [address] [id number] [place] [address]- 3843 Apr, [facility] [place] [facility] [address] [id number] [place] [address]- 3699 Apr, [facility] [place] [facility] [address] [id number] [place] [address]- 3527 Apr, [facility] [place] [facility] [address] [id number] [place] [address]- 9614 Apr, [facility] [place] [facility] [address] [id number] [place] [address]- 3800 Mar, [facility] [place] [facility] [address] [id number] [place] [address]- 7202 Mar, [facility] [place] [facility] [address] [id number] [place] [address]- 8248 Mar, [facility] [place] [facility] [address] [id number] [place] [address]- 5003 Mar, [facility] [place] [facility] [address] [id number] [place] [address]- 2681 Mar, [facility] [place] [facility] [address] [id number] [place] [address]- 6108 Mar, [facility] [place] [facility] [address] [id number] [place] [address]- 9808 Mar, [facility] [place] [facility] [address] [id number] [place] [address]- 1096 18 Mar, 2014 [facility] [place] [facility] [address] [id number] [place] [address]- 8559 15 Mar, 2014 [facility] [place] [facility] [address] [id number] [place] [address]- 7258 15 Mar, 2014 [facility] [place] [facility] [address] [id number] [place] [address]- 9408 15 Mar, 2014 [facility] [place] [facility] [address] [id number] [place] [address]- 4360 15 Mar, 2014 [facility] [place] [facility] [address] [id number] [place] [address]- 6099 Mar, [facility] [place] [facility] [address] [id number] [place] [address]- 6913 Mar, [facility] [place] [facility] [address] [id number] [place] [address]- 6012 Mar, [facility] [place] [facility] [address] [id number] [place] [address]- 3755 Mar, [facility] [place] [facility] [address] [id number] [place] [address]- 2163 Feb, [facility] [place] [facility] [address] [id number] [place] [address]- 5831 Feb, [facility] [place] [facility] [address] [id number] [place] [address]- 7256 Feb, [facility] [place] [facility] [address] [id number] [place] [address]- 9685 Feb, [facility] [place] [facility] [address] [id number] [place] [address]- 3473 Feb, [facility] [place] [facility] [address] [id number] [place] [address]- 1099 Feb, [facility] [place] [facility] [address] [id number], [place] [address]- 8256 19 Feb, 2014 [facility] [place] [facility] [address] [id number] [place] [address]- 3853 18 Feb, 2014 [facility] [place] [facility] [address] [id number] [place] [address]- 7081 18 Feb, 2014 [facility] [place] [facility] [address] [id number] [place] [address]- 2486 17 Feb, 2014 [facility] [place] [facility] [address] [id number] [place] [address]- 3387 17 Feb, 2014 [facility] [place] [facility] [address] [id number] [place] [address]- 9042 17 Feb, 2014 [facility] [place] [facility] [address] [id number] [place] [address]- 5360 17 Feb, 2014 [facility] [place] [facility] [address] [id number] [place] [address]- 2397 14 Feb, 2014 [facility] [place] [facility] [address] [id number] [place] [address]- 3395 14 Feb, 2014 [facility] [place] [facility] [address] [id number] [place] [address]- 8079 14 Feb, 2014 [facility] [place] [facility] [address] [id number] [place] [address]- 6315 14 Feb, 2014 [facility] [place] [facility] [address] [id number], [place] [address]- 3824 10 Feb, 2014 [facility] [place] [facility] [address] [id number], [place] [address]- 4016 10 Feb, 2014 [facility] [place] [facility] [address] [id number] [place] [address]- 6358 Feb, [facility] [place] [facility] [address] [id number] [place] [address]- 1901 Feb, [facility] [place] [facility] [address] [id number] [place] [address]- 0295 30 Jan, 2014 [facility] [place] [facility] [address] [id number] [place] [address]- 9736 30 Jan, 2013 [facility] [place] [facility] [address] [id number] [place] [address]- 1013 30 Jan, 2013 [facility] [place] [facility] [address] [id number] [place] [address]- 1629 30 Jan, 2014 [facility] [place] [facility] [address] [id number] [place] [address]- 4586 24 Jan, 2014 [facility] [place] [facility] [address] [id number] [place] [address]- 3872 24 Jan, 2014 [facility] [place] [facility] [address] [id number] [place] [address]- 9355 Jan, [facility] [place] [facility] [address] [id number] [place] [address]- 1990 Jan, [facility] [place] [facility] [address] [id number] [place] [address]- 9744 Jan, [facility] [place] [facility] [address] [id number] [place] [address]- 6088 20 Jan, 2014 [facility] [place] [facility] [address] [id number] [place] [address]- 7768 17 Jan, 2014 [facility] [place] [facility] [address] [id number] [place] [address]- 9610 17 Jan, 2014 [facility] [place] [facility] [address] [id number] [place] [address]- 9481 17 Jan, 2013 [facility] [place] [facility] [address] [id number] [place] [address]- 6977 17 Jan, 2013 [facility] [place] [facility] [address] [id number] [place] [address]- 5008 15 Jan, 2014 [facility] [place] [facility] [address] [id number] [place] [address]- 0188 15 Jan, 2013 [facility] [place] [facility] [address] [id number] [place] [address]- 9487 14 Jan, 2014 [facility] [place] [facility] [address] [id number] [place] [address]- 8181 14 Jan, 2014 [facility] [place] [facility] [address] [id number] [place] [address]- 8768 13 Jan, 2014 [facility] [place] [facility] [address] [id number] [place] [address]- 5195 Jan, [facility] [place] [facility] [address] [id number] [place] [address]- 1385 Jan, [facility] [place] [facility] [address] [id number] [place] [address]- 3542 Jan, [facility] [place] [facility] [address] [id number] [place] [address]- 6529 10 Jan, 2014 [facility] [place] [facility] [address] [id number] [place] [address]- 2036 Jan, [facility] [place] [facility] [address] [id number], [place] [address]- 9678 Jan, [facility] [place] [facility] [address] [id number] [place] [address]- 9195 25 Dec, 2013 [facility] [place] [facility] [address] [id number], [place] [address]- 3544 25 Dec, 2013 [facility] [place] [facility] [address] [id number], [place] [address]- 2593 23 Dec, 2013 [facility] [place] [facility] [address] [id number], [place] [address]- 9791 23 Dec, 2013 [facility] [place] [facility] [address] [id number], [place] [address]- 3946 19 Dec, 2013 [facility] [place] [facility] [address] [id number], [place] [address]- 9431 19 Dec, 2013 [facility] [place] [facility] [address] [id number], [place] [address]- 0047 17 Dec, 2013 [facility] [place] [facility] [address] [id number], [place] [address]- 9498 17 Dec, 2013 [facility] [place] [facility] [address] [id number] [place] [address]- 6580 09 Sep, 2013 [facility] [place] [facility] [address] [id number] [place] [address]- 7016 09 Dec, 2013 [facility] [place] [facility] [address] [id number] [place] [address]- 2437 08 Sep, 2013 [facility] [place] [facility] [address] [id number] [place] [address]- 1356 08 Sep, 2013 [facility] [place] [facility] [address] [id number] [place] [address]- 9426 04 Dec, 2013 [facility] [place] [facility] [address] [id number] [place] [address]- 1828 Dec, 2013 [facility] [place] [facility] [address] [id number] [place] [address]- 8056 Dec, 2013 [facility] [place] [facility] [address] [id number] [place] [address] Dec, 2013 [facility] [place] [facility] [address] [id number] [place] [address] Dec, 2013 [facility] [place] [facility] [address] [id number] [place] [address] Dec, 2013 [facility] [place] [facility] [address] [id number] [place] [address] Nov, [facility] [place] [facility] [address] [id number] [place] [address] Nov, [facility] [place] [facility] [address] [id number] [place] [address]169 Nov, [facility] [place] [facility] [address] [id number] [place] [address] Nov, [facility] [place] [facility] [address] [id number] [place] [address]- 9351 Nov, [facility] [place] [facility] [address] [id number] [place] [address] Nov, [facility] [place] [facility] [address] [id number] [place] [address] Nov, [facility] [place] [facility] [address] [id number] [place] [address] Nov, [facility] [place] [facility] [address] [id number] [place] [address]- [address]247 Nov, [facility] [place] [facility] [address] [id number] [place] [address] 8834 Nov, [facility] [place] [facility] [address] [id number] [place] [address] 6139 Nov, [facility] [place] [facility] [address] [id number] [place] [address] 4040 Nov, [facility] [place] [facility] [address] [id number] [place] [address] 7883 Oct, [facility] [place] [facility] [address] [id number] [place] [address] 2920 Oct, [facility] [place] [facility] [address] [id number] [place] [address]38 Oct, [facility] [place] [facility] [address] [id number] [place] [address] 2057 Oct, [facility] [place] [facility] [address] [id number] [place] [address]227 Oct, [facility] [place] [facility] [address] [id number] [place] [address] 3[address] Oct, [facility] [place] [facility] [address] [id number] [place] [address]- 269[address] Oct, [facility] [place] [facility] [address] [id number] [place] [address]- 1753 Oct, [facility] [place] [facility] [address] [id number] [place] [address]- 3352 22 Oct, 2013 [facility] [place] [facility] [address] [id number] [place] [address]- [address]66 22 Oct, 2013 [facility] [place] [facility] [address] [id number] [place] [address]- [address]992 16 Oct, 2013 [facility] [place] [facility] [address] [id number] [place] [address]- [address] 16 Oct, 2013 [facility] [place] [facility] [address] [id number] [place] [address]- [address]13 14 Oct, 2013 [facility] [place] [facility] [address] [id number] [place] [address]- [address] 14 Oct, 2013 [facility] [place] [facility] [address] [id number] [place] [address]- 5772 Oct, [facility] [place] [facility] [address] [id number] [place] [address]- 0052 Oct, [facility] [place] [facility] [address] [id number] [place] [address] 1999 Oct, [facility] [place] [facility] [address] [id number] [place] [address] 4901 27 Sep, 2013 [facility] [place] [facility] [address] [id number] [place] [address] 1463 27 Sep, 2013 [facility] [place] [facility] [address] [id number] [place] [address] 8096 Sep, [facility] [place] [facility] [address] [id number] [place] [address]- 9837 20 Sep, 2013 [facility] [place] [facility] [address] [id number] [place] [address]- 9066 18 Sep, 2013 [facility] [place] [facility] [address] [id number] [place] [address]- [address]181 18 Sep, 2013 [facility] [place] [facility] [address] [id number] [place] [address]- [address]453 17 Sep, 2013 [facility] [place] [facility] [address] [id number] [place] [address]- 3349 17 Sep, 2013 [facility] [place] [facility] [address] [id number] [place] [address]- 1201 Sep, [facility] [place] [facility] [address] [id number] [place] [address]- 2981 Sep, [facility] [place] [facility] [address] [id number] [place] [address]- 0646 Sep, [facility] [place] [facility] [address] [id number] [place] [address]- 9385 Sep, [facility] [place] [facility] [address] [id number] [place] [address]- 8177 Sep, [facility] [place] [facility] [address] [id number] [place] [address]- 1239 Sep, [facility] [place] [facility] [address] [id number] [place] [address]- 8222 Sep, [facility] [place] [facility] [address] [id number] [place] [address]- 8837 Sep, [facility] [place] [facility] [address] [id number] [place] [address]- 8298 Sep, [facility] [place] [facility] [address] [id number] [place] [address]- 1196 Sep, [facility] [place] [facility] [address] [id number] [place] [address]- 8070 Sep, [facility] [place] [facility] [address] [id number] [place] [address]- 7190 Sep, [facility] [place] [facility] [address] [id number] [place] [address]- 8198 Sep, [facility] [place] [facility] [address] [id number] [place] [address]- 0353 Sep, [facility] [place] [facility] [address] [id number] [place] [address]- 7790 August, [facility] [place] [facility] [address] [id number] [place] [address]- 3595 August, [facility] [place] [facility] [address] [id number] [place] [address]- 6766 August, [facility] [place] [facility] [address] [id number] [place] [address]- 4900 August, [facility] [place] [facility] [address] [id number] [place] [address]- 1428 August, [facility] [place] [facility] [address] [id number] [place] [address]- 3137 August, [facility] [place] [facility] [address] [id number] [place] [address]- 5648 August, [facility] [place] [facility] [address] [id number] [place] [address]- 3804 August, [facility] [place] [facility] [address] [id number] [place] [address]- 1659 August, [facility] [place] [facility] [address] [id number] [place] [address]- 7515 August, [facility] [place] [facility] [address] [id number] [place] [address]- 8419 August, [facility] [place] [facility] [address] [id number] [place] [address]- 2431 Jul, [facility] [place] [facility] [address] [id number] [place] [address]- 1028 Jul, [facility] [place] [facility] [address] [id number] [place] [address]- 5938 Jul, [facility] [place] [facility] [address] [id number] [place] [address]- 6681 Jul, [facility] [place] [facility] [address] [id number] [place] [address]- 4445 Jul, [facility] [place] [facility] [address] [id number] [place] [address]- 6362 Jul, [facility] [place] [facility] [address] [id number] [place] [address]- 8352 Jul, [facility] [place] [facility] [address] [id number] [place] [address]- 7589 Jul, [facility] [place] [facility] [address] [id number] [place] [address]- 1963 Jul, [facility] [place] [facility] [address] [id number] [place] [address]- 2443 Jul, [facility] [place] [facility] [address] [id number] [place] [address]- 9317 16 Jul, 2013 [facility] [place] [facility] [address] [id number] [place] [address] Jul, [facility] [place] [facility] [address] [id number] [place] [address] 74[address] Jul, [facility] [place] [facility] [address] [id number] [place] [address] 2924 Jul, [facility] [place] [facility] [address] [id number] [place] [address] 7864 Jul, [facility] [place] [facility] [address] [id number] [place] [address]- 8344 Jul, [facility] [place] [facility] [address] [id number] [place] [address] 3830 Jul, [facility] [place] [facility] [address] [id number] [place] [address]- 3987 05 Jul, 2013 [facility] [place] [facility] [address] [id number] [place] [address] 3813 Jul, [facility] [place] [facility] [address] [id number] [place] [address]- 0261 Jul, [facility] [place] [facility] [address] [id number] [place] [address]- 1427 Jul, [facility] [place] [facility] [address] [id number] [place] [address] 2208 Jul, [facility] [address] [id number] [place] [address]- 7088 Jul, [facility] [place] [facility] [address] [id number] [place] [address]- 7446 Jun, [facility] [place] [facility] [address] [id number] [place] [address]- 1490 Jun, [facility] [place] [facility] [address] [id number] [place] [address] 0878 Jun, [facility] [place] [facility] [address] [id number] [place] [address]- 0917 Jun, [facility] [place] [facility] [address] [id number] [place] [address]- 4550 Jun, [facility] [place] [facility] [address] [id number] [place] [address]- 0228 Jun, [facility] [place] [facility] [address] [id number] [place] [address]- 5639 Jun, [facility] [place] [facility] [address] [id number] [place] [address]- 0956 Jun, [facility] [address] [id number] [place] [address]- 1823 Jun, [facility] [place] [facility] [address] [id number] [place] [address]- 7734 Jun, [facility] [place] [facility] [address] [id number] [place] [address]- 8482 Jun, [facility] [place] [facility] [address] [id number] [place] [address]- 7506 Jun, [facility] [place] [facility] [address] [id number] [place] [address]- 1602 May, [facility] [place] [facility] [address] [id number] [place] [address] May, [facility] [place] [facility] [address] [id number] [place] [address]- 6766 Apr, [facility] [place] [facility] [address] [id number] [place] [address]- 0868 Apr, [facility] [place] [facility] [address] [id number] [place] [address]- 6856 Apr, [facility] [place] [facility] [address] [id number] [place] [address]- 3610 Apr, [facility] [place] [facility] [address] [id number] [place] [address]- 1178 Apr, [facility] [place] [facility] [address] [id number] [place] [address]- 6651 Apr, [facility] [place] [facility] [address] [id number] [place] [address]- 9361 Apr, [facility] [place] [facility] [address] [id number] [place] [address]- 4642 Apr, [facility] [place] [facility] [address] [id number] [place] [address]- 3073 Apr, [facility] [place] [facility] [address] [id number] [place] [address]- 1584 Apr, [facility] [place] [facility] [address] [id number] [place] [address]- 9574 Apr, [facility] [place] [facility] [address] [id number] [place] [address]- 7231 Mar, [facility] [place] [facility] [address] [id number] [place] [address]- 8569 Mar, [facility] [place] [facility] [address] [id number] [place] [address]- 7955 Mar, [facility] [place] [facility] [address] [id number] [place] [address] Mar, [facility] [place] [facility] [address] [id number], [place] [address]- [address] Feb, [facility] [address] [id number] [place] [address]- 0678 Feb, [facility] [place] [facility] [address] [id number], [place] [address]- 7[address] Feb, [facility] [place] [facility] [address] [id number] [place] [address]- 3006 Feb, [facility] [place] [facility] [address] [id number], [place] [address] 7739 Feb, [facility] [place] [facility] [address] [id number] [place] [address]- 3229 Feb, [facility] [place] [facility] [address] [id number], [place] [address]- 9265 Feb, [facility] [address] [id number], [place] [address] 1993 Feb, [facility] [place] [facility] [address] [id number], [place] [address]- 2215 Feb, [facility] [place] [facility] [address] [id number], [place] [address]- 5062 Feb, [facility] [place] [facility] [address] [id number], [place] [address]- 3045 Feb, [facility] [place] [facility] [address] [id number], [place] [address]- 5382 Jan, [facility] [place] [facility] [address] [id number], [place] [address]- 9975 Jan, [facility] [place] [facility] [address] [id number], [place] [address]- 3772 Jan, [facility] [place] [facility] [address] [id number], [place] [address]- 6930 Jan, [facility] [place] [facility] [address] [id number], [place] [address]- 2532 Jan, [facility] [place] [facility] [address] [id number] [place] [address]- 4744 10 Jan, 2012 [facility] [place] [facility] [address] [id number] [place] [address]- 5196 03 Jan, 2013 [facility] [place] [facility] [address] [id number] [place] [address] 2543 02 Jan, 2013 [facility] [place] [facility] [address] [id number] [place] [address]- 4619 30 Dec, 2012 [facility] [place] [facility] [address] [id number] [place] [address] 2548 25 Dec, 2012 [facility] [place] [facility] [address] [id number] [place] [address]- 7338 18 Dec, 2012 [facility] [place] [facility] [address] [id number] [place] [address]- 1836 17 Dec, 2012 [facility] [place] [facility] [address] [id number] [place] [address]- 6638 17 Dec, 2012 [facility] [place] [facility] [address] [id number] [place] [address]- 2678 16 Dec, 2012 [facility] [place] [facility] [address] [id number] [place] [address]- 8123 13 Dec, 2012 [facility] [place] [facility] [address] [id number] [place] [address] 2542 11 Dec, 2012 [facility] [place] [facility] [address] [id number] [place] [address]- 2544 05 Dec, 2012 [facility] [place] [facility] [address] [id number] [place] [address] 2545 04 Dec, 2012 [facility] [place] [facility] [address] [id number] [place] [address] 2545 30 Nov, 2012 [facility] [place] [facility] [address] [id number] [place] [address] 2545 29 Nov, 2012 [facility] [place] [facility] [address] [id number] [place] [address]- 2978 Nov, [facility] [place] [facility] [address] [id number] [place] [address]- 5457 16 Nov, 2012 [facility] [place] [facility] [address] [id number] [place] [address]- 3111 14 Nov, 2012 [facility] [place] [facility] [address] [id number] [place] [address]- 3776 Nov, [facility] [place] [facility] [address] [id number] [place] [address]- 8951 05 Nov, 2012 [facility] [place] [facility] [address] [id number] [place] [address]- 3772 Oct, [facility] [place] [facility] [address] [id number] [place] [address]- 5093 Oct, [facility] [place] [facility] [address] [id number] [place] [address]- 6303 Oct, [facility] [place] [facility] [address] [id number] [place] [address]- 9340 17 Oct, 2012 [facility] [place] [facility] [address] [id number] [place] [address]- 1238 15 Oct, 2012 [facility] [place] [facility] [address] [id number] [place] [address]- 1536 Oct, [facility] [place] [facility] [address] [id number] [place] [address]- 8007 28 Sep, 2012 [facility] [place] [facility] [address] [id number] [place] [address]- 6643 28 Sep, 2012 [facility] [place] [facility] [address] [id number] [place] [address]- 6874 27 Sep, 2012 [facility] [place] [facility] [address] [id number] [place] [address]- 5759 14 Sep, 2012 [facility] [place] [facility] [address] [id number] [place] [address]- 0149 13 Sep, 2012 [facility] [place] [facility] [address] [id number] [place] [address]- 1680 Sep, [facility] [address] [id number] [place] [address]- 9592 Sep, [facility] [address] [id number] [place] [address]- 2123 Sep, [facility] [address] [id number] [place] [address]- 2445 Sep, [facility] [address] [id number] [place] [address]- 4610 August, [facility] [address] [id number] [place] [address]- 0998 August, [facility] [address] [id number] [place] [address]- 5395 August, [facility] [address] [id number] [place] [address]- 3408 August, [facility] [address] [id number] [place] [address]- 5971 August, [facility] [address] [id number] [place] [address]- 3962 August, [facility] [address] [id number] [place] [address]- 0003 August, [facility] [address] [id number] [place] [address]- 0591 August, [facility] [address] [id number] [place] [address]- 6045 Jul, [facility] [address] [id number] [place] [address]- 5657 Jul, [address] [id number] Jul [facility] [address] [id number] [place] [address]- 9200 Jun, [facility] [place] [facility] [address] [id number] [place] [address]- 1210 Jun, [facility] [address] [id number] [place] [address]- 4137 Jun, [facility] [place] [facility] [address] [id number] [place] [address]- 2580 Jun, [facility] [address] [id number] [place] [address]- 7901 Jun, [facility] [address] [id number] [place] [address]- 1220 Jun, [facility] [address] [id number] [place] [address]- 4666 May, [facility] [address] [id number] [place] [address]- 8283 May, [facility] [address] [id number] [place] [address]- 9492 May, [facility] [address] [id number] [place] [address]- 3012 May, [facility] [address] [id number] [place] [address]- 5954 May, [facility] [address] [id number] [place] [address]- 2366 Apr, [facility] [address] [id number] [place] [address]- 1191 Apr, [facility] [address] [id number] [place] [address]- 3353 Apr, [facility] [place] [facility] [address] [id number] [place] [address]- 7787 Apr, [facility] [place] [facility] [address] [id number] [place] [address]- 6874 Apr, [facility] [place] [facility] [address] [id number] [place] [address]- 5405 Apr, [facility] [place] [facility] [address] [id number] [place] [address]- 7778 Mar, [facility] [place] [facility] [address] [id number] [place] [address]- 5186 Mar, [facility] [place] [facility] [address] [id number] [place] [address]- 6166 Mar, [facility] [place] [facility] [address] [id number] [place] [address]- 2936 Mar, [facility] [place] [facility] [address] [id number] [place] [address]- 1448 Mar, [facility] [place] [facility] [address] [id number] [place] [address]- 6707 Mar, [facility] [place] [facility] [address] [id number] [place] [address]- 9205 Mar, [facility] [place] [facility] [address] [id number] [place] [address]- 6861 Mar, [facility] [place] [facility] [address] [id number] [place] [address]- 9945 Mar, [facility] [place] [facility] [address] [id number] [place] [address]- 7016 Mar, [facility] [place] [facility] [address] [id number] [place] [address]- 2897 Mar, [facility] [place] [facility] [address] [id number], [place] [address]- 7740 Feb, [facility] [place] [facility] [address] [id number] [place] [address]- 1516 Feb, [facility] [place] [facility] [address] [id number] [place] [address]- 9329 Feb, [facility] [place] [facility] [address] [id number] [place] [address]- 2756 Feb, [facility] [place] [facility] [address] [id number] [place] [address]- 8278 Feb, [facility] [place] [facility] [address] [id number] [place] [address]- 1910 Feb, [facility] [place] [facility] [address] [id number] [place] Feb, [facility] [place] [facility] [address] [id number] [place] [address]- 0206 Feb, [facility] [place] [facility] [address] [id number] [place] [address]- 9371 Feb, [facility] [place] [facility] [address] [id number] [place]7 Feb, [facility] [place] [facility] [address] [id number] [place] [address]- 9512 Feb, [facility] [place] [facility] [address] [facility] [id number] [place] [address]- 0419 Jan, [facility] [place] [facility] [address] [id number] [place] [address]- 2570 Jan, [facility] [place] [facility] [address] [id number] [place] [address]- 7100 Jan, [facility] [place] [facility] [address] [facility] [id number] [place] [address]- 2784 Jan, [facility] [place] [facility] [address] [id number] [place] [address]- 5805 Jan, [facility] [place] [facility] [address] [id number] [place] [address]- 2540 Jan, [facility] [place] [facility] [address] [id number] [place] 2988 Jan, [facility] [place] [facility] [address] [id number] [place] [address]- 1835 24 Dec, 2011 [facility] [place] [facility] [address] [id number] [place] [address]- 5972 17 Dec, 2011 [facility] [place] [facility] [address] [id number] [place] [address]- 2327 13 Dec, 2011 [facility] [place] [facility] [address] [id number] [place] [address]- 5893 12 Dec, 2011 [facility] [place] [facility] [address] [id number] [place] [address]- 6066 23 Nov, 2011 [facility] [place] [facility] [address] [id number] [place] [address]- 0565 Nov, [facility] [place] [facility] [address] [id number] [place] [address]- 8650 Nov, [facility] [place] [facility] [address] [id number] [place] [address]- 1518 15 Nov, 2011 [facility] [place] [facility] [address] [id number] [place] [address]- 4404 14 Nov, 2011 [facility] [place] [facility] [address] [id number] [place] [address]- 5826 Nov, [facility] [place] [facility] [address] [id number] [place] [address]- 9677 Nov, [facility] [place] [facility] [address] [id number] [place] [address]- 7223 Nov, [facility] [place] [facility] [address] [id number] [place] [address]- 8493 Nov, [facility] [place] [facility] [address] [id number] [place] [address]- 8610 Nov, [facility] [place] [facility] [address] [id number] [place] [address]- 2631 Nov, [facility] [place] [facility] [address] [id number] [place] [address]- 5443 Nov, [facility] [place] [facility] [address] [id number] [place] [address]- 7062 Nov, [facility] [place] [facility] [address] [id number] [place] [address]- 2958 Oct, [facility] [place] [facility] [address] [id number] [place] [address]- 8756 Oct, [facility] [place] [facility] [address] [id number] [place] [address]- 3416 Oct, [facility] [place] [facility] [address] [id number] [place] [address]- 0283 Oct, [facility] [place] [facility] [address] [id number] [place] [address]- 6645 Oct, [facility] [place] [facility] [address] [id number] [place] [address]- 5133 Oct, [facility] [place] [facility] [address] [id number] [place] [address]- 4157 Oct, [facility] [place] [facility] [address] [id number] [place] [address]- 5601 Oct, [facility] [place] [facility] [address] [id number] [place] [address]- 7119 Oct, [facility] [place] [facility] [address] [id number] [place] [address]- 5355 Sep, [facility] [place] [facility] [address] [id number] [place] [address]- 5457 Sep, [facility] [place] [facility] [address] [id number] [place] [address]- 1821 Sep, [facility] [place] [facility] [address] [id number] [place] [address]- 0611 Sep, [facility] [place] [facility] [address] [id number] [place] [address]- 4198 Sep, [facility] [place] [facility] [address] [id number] [place] [address]- 6798 Sep, [facility] [place] [facility] [address] [id number] [place] [address]- 7060 Sep, [facility] [place] [facility] [address] [id number], [place] [address]- 0186 Sep, [facility] [id number] [address] 1149 August, [facility] [id number] 2450 August, [facility] [id number] 6706 August, [facility] [address] [facility] [id number], [place] [address]- 6767 August, [facility] [id number] [address]- 9028 August, [facility] [id number] [address] August, [facility] [id number] [address] August, [facility] [id number] [address] August, [facility] [id number] [address] August, [facility] [id number] [address] August, [facility] [id number] [address] August, [facility] [id number] [address] August, [facility] [id number] [address] Oct, IMMUNIZATIONS No Known Immunizations SOCIAL HISTORY [...] Surgical History bladder surgery Hospitalization History [facility] for right groin pain 05/2011 Hospitalization History [facility] for wound on buttocks 08/2012 Hospitalization History Via [facility], hypoxia secondary to pneumonia 12/02-12/09 Hospitalization History Pneumonia, elevated CO2 on Bipap was in ICU 08/2013 Hospitalization History Hypoxia, Exacerbation COPD, Chest pain 09/05/15 Hospitalization History suicidal ideations-[place] 12/28 Hospitalization History hypoxia--[facility] 02/13/2016 Hospitalization History shortness of breath at june 2016 Hospitalization History Shortness of breath at august 2016 Hospitalization History SOB, chest pain at 12/2016
--- OUTSIDE RECORDS SUMMARY | 2018-02-11 12:54 | XMS REPORT ---
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 [facility] [id number] [place] [address] 92044- 9229 Apr, [facility] [id number] [place] [address] 92425- 8198 Apr, [facility] [id number] [place] [address] 85528- 7690 Apr, Dysuria R30.0 and Well woman exam (no gynecological exam) Z00.00 [facility] [id number] [place] [address] 83121- 7472 Mar, [facility] [id number] [place] [address] 36511- 1002 Mar, [facility] [address] [place] [address] [id number] Mar, Dental examination Z01.20 [facility] [address] [place] [address] 04614- 5650 Mar, Chronic diarrhea K52.9 ; Intractable vomiting with nausea, vomiting of unspecified type R11.2 ; Cellulitis, unspecified cellulitis site L03.90 ; Type 2 diabetes mellitus with diabetic polyneuropathy E11.42 and Postinflammatory hyperpigmentation L81.0 [facility] [address] [place] [address] 62238- 8217 Mar, Unspecified mood [affective] disorder F39 [facility] [address] [place] [address] 50795- 0348 Mar, Unspecified mood [affective] disorder F39 [facility] [address] [facility] [id number] [address]- 5907 Mar, [facility] [address] [facility] [id number] [address]- 8968 Mar, [facility] [address] [facility] [id number], [place] [address]- 4227 Mar, [facility] [address] [facility] [id number] [place] [address] 45987- 0543 Mar, [facility] [address] [facility] [id number], [place] [address]- 1971 Mar, [facility] [address] [facility] [id number] [place] [address] 00243- 0937 Mar, [facility] [id number] [place] [address] 97142- 2741 Feb, Unspecified mood [affective] disorder F39 [facility] [id number] [address]- 7746 Feb, [facility] [id number] [place] [address] 51595- 0608 Feb, [facility] [address], [place] [address]- 8894 Jan, Unspecified mood [affective] disorder F[address] [id number] [address] Jan, Encounter for dental examination Z01.20 [facility] [id number] [address]- 5496 Jan, [facility] [address], [place] [address]- 9613 Jan, [facility] [address], [place] [address]- 0984 Jan, [facility] [address], [place] [address]- 8794 Jan, [facility] [id number] [place] [address] 87557- 0956 Jan, [facility] [id number] [place] [address] 24479- 9550 Jan, Abdominal abscess K65.1 and Dental caries K02.9 [facility] [id number] [place] [address] 06854- 1706 Jan, [facility] [id number] [place] [address] 02293- 1303 30 Dec, 2014 Diabetes with neurological manifestations, type II or unspecified type, not stated as uncontrolled 250.60 ; Essential hypertension, benign 401.1 ; Concussion 850.9 and Skin texture changes 782.8 [facility] [id number] [place] [address] 57799- 1106 Dec, [facility] [address] 18678- 7370 24 Dec, 2014 [facility] [id number] [place] [address] 47373- 0049 Dec, [facility] [id number] [place] [address] 82814- 5010 Dec, [facility] [id number] [place] [address] 78925- 7360 17 Dec, 2014 Affective disorder 296.90 [facility] [id number] [place] [address] 75375- 9205 14 Dec, 2014 [facility] [id number] [place] [address] 26967- 7095 10 Dec, 2014 Affective disorder 296.90 [facility] [id number] [place] [address] 31106- 8654 04 Dec, 2014 [facility] [id number] [place] [address] 64952- 6289 04 Dec, 2014 [facility] [address] [place] [address]- 9431 Dec, [facility] [address] [place] [address] 14313 2546 Dec, [facility] [id number] [place] [address] 65311 2546 Nov, Affective disorder 296.90 [facility] [address] [place] [address] 03909 2546 Nov, [facility] [id number] [place] [address] 82999 2546 Nov, Affective disorder 296.90 [facility] [id number] [place] [address] 77012 2546 Nov, Diarrhea 787.91 [facility] [id number] [place] [address] 83694 2546 Nov, [facility] [id number] [place] [address] 43404 254 Nov, Diarrhea 787.91 [facility] [id number] [place] [address] 46491 2546 Nov, Diarrhea 787.91 and Hyperlipidemia 272.4 [facility] [address] [place] [address] 12675 2546 Nov, Diarrhea 787.91 [facility] [address] [place] [address] 19169 2546 Nov, Affective disorder 296.90 [facility] [id number] [place] [address] 94241 2546 Nov, Affective disorder 296.90 [facility] [id number] [place] [address] 80913 2546 Nov, Affective disorder 296.90 [facility] [address] [address] 2547 Nov, [facility] [id number] [place] [address] 51056- 1111 Nov, [facility] [address] [address]- 2116 Nov, [facility] [address] [address]- 6767 Nov, Episodic mood disorder 296.90 [facility] [address] [address]- 0419 Nov, [facility] [address] [place] [address] 00221- 1710 Nov, [facility] [address] [place] [address] 28307- 5845 Nov, [facility] [address] [address]- 4718 Nov, [facility] [address] [place] [address] 03475- 4408 Nov, [facility] [address] [address]- 2650 Nov, Lymphedema 457.1 ; Hyperlipidemia 272.4 ; Essential hypertension, benign 401.1 and Numbness of toes 782.0 [facility] [address] [address]- 1347 Nov, Episodic mood disorder 296.90 [facility] [address] [address]- 2751 Oct, [facility] [address] [address]- 4147 Oct, [facility] [address] [address]- 3912 Oct, [facility] [address] [address]- 1460 Oct, [facility] [address] [address]- 7700 Oct, [facility] [address] [facility] [id number], [place] [address]- 3801 Oct, 2014 [facility] [address] [facility] [id number] [place] [address]- 1997 Oct, 2014 [facility] [address] [facility] [id number], [place] [address]- 8914 Oct, 2014 [facility] [address] [facility] [id number] [place] [address]- 8424 Oct, Episodic mood disorder 296.90 [facility] [address] [facility] [id number] [place] [address]- 1600 30 Sep, 2014 [facility] [address] [facility] [id number], [place] [address]- 5974 Sep, [facility] [address] [facility] [id number], [place] [address]- 0725 Sep, [facility] [address] [facility] [id number], [place] [address]- 8485 Sep, [facility] [address] [facility] [id number], [place] [address]- 1615 Sep, [facility] [address] [facility] [id number], [place] [address]- 9986 Sep, Episodic mood disorder 296.90 [facility] [id number] [address]- 4590 Sep, Unspecified episodic mood disorder 296.90 [facility] [address] [facility] [id number], [place] [address]- 5185 Sep, [facility] [address] [facility] [id number] [place] [address]- 3039 Sep, [facility] [address] [facility] [id number] [address]- 0356 16 Sep, 2014 Episodic mood disorder 296.90 [facility] [id number] [address]- 9627 Sep, [facility] [address] [address]- 6110 Sep, [facility] [id number] [place] [address] 50997- 4023 Sep, [facility] [id number] [place] [address] 27997- 8844 Sep, Hematemesis 578.0 and Vomiting 787.03 [facility] [id number] [place] [address] 31180- 6692 Sep, Episodic mood disorder 296.90 [facility] [id number] [place] [address] 13311- 9189 Sep, [facility] [id number] [place] [address] 44528- 7366 Sep, [facility] [id number] [place] [address] 47824- 8032 Sep, Diabetes mellitus without mention of complication, type II or unspecified type, not stated as uncontrolled 250.00 and Other chronic pain 338.29 [facility] [id number] [place] [address] 10746- 1271 Sep, Episodic mood disorder 296.90 [facility] [id number] [place] [address] 54185- 1389 Sep, [facility] [id number] [place] [address] 81331- 7421 Sep, Episodic mood disorder 296.90 [facility] [id number] [address] Sep, [facility] [id number] [place] [address] 44581- 6800 August, [facility] [id number] [place] [address] 85907- 2179 August, [facility] [id number] [place] [address] [place] [address] August, Episodic mood disorder 296.90 [facility] [id number] [address] August, [facility] [id number], [place] [address] August, Unspecified episodic mood disorder 296.90 [facility] [id number], [place] [address] August, Vomiting 787.03 [facility] [id number] [address] August, [facility] [id number] [address] August, [facility] [id number], [place] [address] 164[address] August, [facility] [id number], [place] [address] 8072 August, [facility] [id number], [place] [address] 47[address] August, [facility] [id number], [place] [address] 4[address] Jul, [facility] [id number], [place] [address] 9[address] Jul, [facility] [id number], [place] [address] 137[address] Jul, [facility] [place] [facility] [id number], [place] [address] 1311 Jun, [facility] [id number] [id number] Jun, [facility] [place] [facility] [id number] [address] 1889 Jun, [facility] [id number], [place] [address] 0968 Jun, [facility] [place] [facility] [address] [id number] [place] [address]478 Jun, [facility] [place] [facility] [address] [id number] [place] [address]- 6129 Jun, [facility] [place] [facility] [address] [id number] [place] [address]- 5729 Jun, [facility] [place] [facility] [address] [id number] [place] [address]- 0519 Jun, [facility] [place] [facility] [address] [id number] [place] [address] Jun, [facility] [place] [facility] [address] [id number] [place] [address] 2087 Jun, [facility] [place] [facility] [address] [id number] [place] [address] 4440 Jun, [facility] [place] [facility] [address] [id number] [place] [address] 5329 Jun, [facility] [place] [facility] [address] [id number] [place] [address]- 6613 Jun, [facility] [place] [facility] [address] [id number] [place] [address]- 8557 Jun, [facility] [place] [facility] [address] [id number] [place] [address]- 6375 Jun, [facility] [place] [facility] [address] [id number] [place] [address]- 5152 Jun, [facility] [place] [facility] [address] [id number] [place] [address] 9995 Jun, [facility] [place] [facility] [address] [id number] [place] [address]- 8180 Jun, [facility] [place] [facility] [address] [id number] [place] [address]- 4141 Jun, [facility] [place] [facility] [address] [id number] [place] [address]- 4926 21 Jun, 2014 [facility] [place] [facility] [address] [id number] [place] [address]- 2926 21 Jun, 2014 [facility] [place] [facility] [address] [id number] [place] [address]- 0986 20 Jun, 2014 [facility] [place] [facility] [address] [id number] [place] [address]- 8526 20 Jun, 2014 [facility] [place] [facility] [address] [id number] [place] [address]- 1640 20 Jun, 2014 [facility] [place] [facility] [address] [id number] [place] [address]- 9606 20 Jun, 2014 [facility] [place] [facility] [address] [id number] [place] [address]- 7511 19 Jun, 2014 [facility] [place] [facility] [address] [id number] [place] [address]- 4462 19 Jun, 2014 [facility] [place] [facility] [address] [id number] [place] [address]- 9026 18 Jun, 2014 [facility] [place] [facility] [address] [id number] [place] [address]- 8269 18 Jun, 2014 [facility] [place] [facility] [address] [id number] [place] [address]- 0119 17 Jun, 2014 [facility] [place] [facility] [address] [id number] [place] [address]- 7408 17 Jun, 2014 [facility] [place] [facility] [address] [id number] [place] [address]- 3492 16 Jun, 2014 [facility] [place] [facility] [address] [id number] [place] [address]- 2606 16 Jun, 2014 [facility] [place] [facility] [address] [id number] [place] [address]- 3466 16 Jun, 2014 [facility] [place] [facility] [address] [id number] [place] [address]- 2381 16 Jun, 2014 [facility] [place] [facility] [address] [id number] [place] [address]- 7011 16 Jun, 2014 [facility] [place] [facility] [address] [id number] [place] [address]- 8712 16 Jun, 2014 [facility] [place] [facility] [address] [id number] [place] [address]- 8001 Jun, [facility] [place] [facility] [address] [id number] [place] [address]- 7134 Jun, [facility] [place] [facility] [address] [id number] [place] [address]- 6809 Jun, [facility] [place] [facility] [address] [id number] [place] [address]- 1211 Jun, [facility] [place] [facility] [address] [id number] [place] [address]- 8568 Jun, [facility] [place] [facility] [address] [id number] [place] [address]- 2737 Jun, [facility] [place] [facility] [address] [id number] [place] [address]- 6582 Jun, [facility] [place] [facility] [address] [id number] [place] [address]- 0898 Jun, [facility] [place] [facility] [address] [id number], [place] [address]- 5434 Jun, [facility] [place] [facility] [address] [id number], [place] [address]- 7331 Jun, [facility] [place] [facility] [address] [id number] [place] [address]- 2775 Jun, [facility] [place] [facility] [address] [id number] [place] [address]- 3764 Jun, [facility] [place] [facility] [address] [id number] [place] [address]- 5658 Jun, [facility] [place] [facility] [address] [id number] [place] [address]- 8486 Jun, [facility] [place] [facility] [address] [id number] [place] [address]- 0470 Jun, [facility] [place] [facility] [address] [id number] [place] [address]- 7298 Jun, 2014 [facility] [place] [facility] [address] [facility] [id number] [place] [address]- 8231 Jun, [facility] [place] [facility] [address] [id number] [place] [address]- 9401 Jun, [facility] [place] [facility] [address] [id number] [place] [address]- 5363 Jun, [facility] [place] [facility] [address] [facility] [id number] [place] [address]- 2173 Jun, [facility] [place] [facility] [address] [facility] [id number] [place] [address]- 8063 May, 2014 [facility] [place] [facility] [address] [facility] [id number] [place] [address]- 0652 May, [facility] [place] [facility] [address] [id number] [place] [address]- 6500 May, [facility] [place] [facility] [address] [facility] [id number] [place] [address]- 0406 May, [facility] [place] [facility] [address] [facility] [id number] [place] [address]- 2548 May, 2014 [facility] [place] [facility] [address] [facility] [id number] [place] [address]- 2544 May, 2014 [facility] [place] [facility] [address] [facility] [id number] [place] [address] May, 2014 [facility] [place] [facility] [address] [facility] [id number] [place] [address] May, 2014 [facility] [place] [facility] [address] [id number] [place] [address] 1235 May, 2014 [facility] [place] [facility] [address] [facility] [id number] [place] [address]- 8960 20 May, 2014 [facility] [place] [facility] [address] [facility] [id number] [place] [address]- 3522 18 May, 2014 [facility] [place] [facility] [address] [facility] [id number] [place] [address]- 3014 18 May, 2014 [facility] [place] [facility] [address] [facility] [id number] [place] [address]- 5132 13 May, 2014 [facility] [place] [facility] [address] [facility] [id number] [place] [address]- 5423 13 May, 2014 [facility] [place] [facility] [address] [facility] [id number] [place] [address]- 9008 11 May, 2014 [facility] [place] [facility] [address] [id number] [place] [address]- 5088 May, 2014 [facility] [place] [facility] [address] [facility] [id number] [place] [address]- 9487 May, 2014 [facility] [place] [facility] [address] [facility] [id number] [place] [address]- 3790 May, 2014 [facility] [place] [facility] [address] [facility] [id number] [place] [address]- 7057 09 May, 2014 [facility] [place] [facility] [address] [facility] [id number] [place] [address]- 1561 May, 2014 [facility] [place] [facility] [address] [facility] [id number], [place] [address]- 2545 May, 2014 [facility] [place] [facility] [address] [facility] [id number] [place] [address]- 1516 May, 2014 [facility] [place] [facility] [address] [facility] [id number], [place] [address]- 7207 May, 2014 [facility] [place] [facility] [address] [id number] [place] [address]- 0168 May, [facility] [place] [facility] [address] [id number] [place] [address]- 3602 May, [facility] [place] [facility] [address] [id number] [place] [address]- 6781 May, [facility] [place] [facility] [address] [id number] [place] [address]- 0394 May, [facility] [place] [facility] [address] [id number] [place] [address]- 4844 Apr, [facility] [place] [facility] [address] [id number] [place] [address]- 0837 Apr, [facility] [place] [facility] [address] [id number] [place] [address]- 6297 Apr, [facility] [place] [facility] [address] [id number] [place] [address]- 9429 Apr, [facility] [place] [facility] [address] [id number][place] [address]- 0155 Apr, [facility] [place] [facility] [address] [id number] [place] [address]- 0376 Apr, [facility] [place] [facility] [address] [id number], [place] [address]- 9820 Apr, [facility] [place] [facility] [address] [id number], [place] [address]- 9981 Apr, [facility] [place] [facility] [address] [id number], [place] [address]- 3898 Apr, [facility] [place] [facility] [address] [id number], [place] [address]- 3298 Apr, [facility] [place] [facility] [address] [id number], [place] [address]- 3721 Apr, [facility] [place] [facility] [address] [id number], [place] [address]- 5668 Apr, [facility] [place] [facility] [address] [id number] [place] [address]- 0870 Apr, [facility] [address] [id number] [place] [address]- 3802 Apr, [facility] [place] [facility] [address] [id number] [place] [address]- 5919 Apr, [facility] [place] [facility] [address] [id number] [place] [address]- 9459 Apr, [facility] [place] [facility] [address] [id number] [place] [address]- 9772 Apr, [facility] [place] [facility] [address] [id number] [place] [address]- 1584 Apr, [facility] [place] [facility] [address] [id number] [place] [address]- 9011 Apr, [facility] [address] [id number] [place] [address]- 4590 Apr, [facility] [place] [facility] [address] [id number] [place] [address]- 3442 Mar, [facility] [place] [facility] [address] [id number] [place] [address]- 1233 Mar, [facility] [place] [facility] [address] [id number] [place] [address]- 4157 Mar, [facility] [place] [facility] [address] [id number] [place] [address]- 8377 Mar, [facility] [place] [facility] [address] [id number] [place] [address]- 2591 Mar, [facility] [place] [facility] [address] [id number] [place] [address]- 5351 Mar, [facility] [place] [facility] [address] [id number] [place] [address]- 4055 Mar, [facility] [place] [facility] [address] [id number] [place] [address]- 9228 Mar, [facility] [place] [facility] [address] [id number] [place] [address]- 9324 15 Mar, 2014 [facility] [place] [facility] [address] [id number] [place] [address]- 1117 Mar, [facility] [place] [facility] [address] [id number] [place] [address]- 6487 Mar, [facility] [place] [facility] [address] [id number] [place] [address]- 1823 Mar, [facility] [place] [facility] [address] [id number] [place] [address]- 3910 Mar, [facility] [place] [facility] [address] [id number] [place] [address]- 5163 Mar, [facility] [place] [facility] [address] [id number] [place] [address]- 2422 Mar, [facility] [place] [facility] [address] [id number] [place] [address]- 8948 Mar, [facility] [place] [facility] [address] [id number] [place] [address]- 0493 Feb, [facility] [place] [facility] [address] [id number] [place] [address]- 3206 Feb, [facility] [place] [facility] [address] [id number] [place] [address]- 0305 Feb, [facility] [place] [facility] [address] [id number] [place] [address]- 2680 Feb, [facility] [place] [facility] [address] [id number] [place] [address]- 3096 Feb, [facility] [place] [facility] [address] [id number] [place] [address]- 1932 Feb, [facility] [place] [facility] [address] [id number] [place] [address]- 6281 Feb, [facility] [place] [facility] [address] [id number], [place] [address]- 1042 18 Feb, 2014 [facility] [place] [facility] [address] [id number] [place] [address]- 8931 18 Feb, 2014 [facility] [place] [facility] [address] [id number] [place] [address]- 4808 17 Feb, 2014 [facility] [place] [facility] [address] [id number] [place] [address]- 1703 17 Feb, 2014 [facility] [place] [facility] [address] [id number] [place] [address]- 5888 17 Feb, 2014 [facility] [place] [facility] [address] [id number] [place] [address]- 0512 17 Feb, 2014 [facility] [place] [facility] [address] [id number] [place] [address]- 3442 14 Feb, 2014 [facility] [place] [facility] [address] [id number] [place] [address]- 1371 Feb, [facility] [place] [facility] [address] [id number] [place] [address]- 7834 14 Feb, 2014 [facility] [place] [facility] [address] [id number] [place] [address]- 4068 14 Feb, 2014 [facility] [place] [facility] [address] [id number] [place] [address]- 5393 Feb, [facility] [place] [facility] [address] [id number], [place] [address]- 1608 Feb, [facility] [place] [facility] [address] [id number], [place] [address]- 9360 Feb, [facility] [place] [facility] [address] [id number] [place] [address]- 1251 Feb, [facility] [place] [facility] [address] [id number] [place] [address]- 0656 Jan, [facility] [place] [facility] [address] [id number] [place] [address]- 9399 Jan, [facility] [place] [facility] [address] [id number] [place] [address]- 2452 30 Jan, 2013 [facility] [place] [facility] [address] [id number] [place] [address]- 2216 30 Jan, 2014 [facility] [place] [facility] [address] [id number] [place] [address]- 6918 24 Jan, 2014 [facility] [place] [facility] [address] [id number] [place] [address]- 1012 24 Jan, 2014 [facility] [place] [facility] [address] [id number] [place] [address]- 3424 Jan, [facility] [place] [facility] [address] [id number] [place] [address]- 8058 Jan, [facility] [place] [facility] [address] [id number] [place] [address]- 7452 Jan, [facility] [place] [facility] [address] [id number] [place] [address]- 7730 Jan, [facility] [place] [facility] [address] [id number] [place] [address]- 2349 17 Jan, 2014 [facility] [place] [facility] [address] [id number] [place] [address]- 0570 17 Jan, 2014 [facility] [place] [facility] [address] [id number] [place] [address]- 1170 17 Jan, 2014 [facility] [place] [facility] [address] [id number] [place] [address]- 8997 17 Jan, 2013 [facility] [place] [facility] [address] [id number] [place] [address]- 3033 15 Jan, 2014 [facility] [place] [facility] [address] [id number] [place] [address]- 5198 15 Jan, 2014 [facility] [place] [facility] [address] [id number] [place] [address]- 5682 14 Jan, 2014 [facility] [place] [facility] [address] [id number] [place] [address]- 6463 14 Jan, 2014 [facility] [place] [facility] [address] [id number] [place] [address]- 1781 Jan, [facility] [place] [facility] [address] [id number] [place] [address]- 6687 Jan, [facility] [place] [facility] [address] [id number] [place] [address]- 6622 Jan, [facility] [place] [facility] [address] [id number] [place] [address]- 1863 Jan, [facility] [place] [facility] [address] [id number] [place] [address]- 5807 Jan, [facility] [place] [facility] [address] [id number] [place] [address]- 0330 Jan, [facility] [place] [facility] [address] [id number] [place] [address]- 5599 Jan, [facility] [place] [facility] [address] [id number], [place] [address]- 6062 25 Dec, 2013 [facility] [place] [facility] [address] [id number] [place] [address]- 7582 25 Dec, 2013 [facility] [place] [facility] [address] [id number], [place] [address]- 4439 23 Dec, 2013 [facility] [place] [facility] [address] [id number], [place] [address]- 7939 23 Dec, 2013 [facility] [place] [facility] [address] [id number], [place] [address]- 5574 19 Dec, 2013 [facility] [place] [facility] [address] [id number] [place] [address]- 4605 19 Dec, 2013 [facility] [place] [facility] [address] [id number], [place] [address]- 7358 17 Dec, 2013 [facility] [place] [facility] [address] [id number], [place] [address]- 8420 17 Dec, 2013 [facility] [place] [facility] [address] [id number], [place] [address]- 2636 Sep, 2013 [facility] [place] [facility] [address] [id number] [place] [address]- 4000 09 Sep, 2013 [facility] [place] [facility] [address] [id number] [place] [address]- 1168 Dec, 2013 [facility] [place] [facility] [address] [id number] [place] [address]- 4771 Dec, 2013 [facility] [place] [facility] [address] [id number] [place] [address]- 9866 Dec, 2013 [facility] [place] [facility] [address] [id number] [place] [address]- 0140 Dec, 2013 [facility] [place] [facility] [address] [id number] [place] [address]- 6468 Dec, 2013 [facility] [place] [facility] [address] [id number] [place] [address]- 3657 Dec, 2013 [facility] [place] [facility] [address] [id number] [place] [address]- 6577 Dec, 2013 [facility] [place] [facility] [address] [id number] [place] [address]- 9050 Dec, 2013 [facility] [place] [facility] [address] [id number] [place] [address]- 9972 Nov, [facility] [place] [facility] [address] [id number] [place] [address]- 7657 Nov, [facility] [place] [facility] [address] [id number] [place] [address]- 6880 Nov, [facility] [place] [facility] [address] [id number] [place] [address]- 0833 Nov, [facility] [place] [facility] [address] [id number] [place] [address]- 4959 Nov, [facility] [place] [facility] [address] [id number] [place] [address]- 8101 Nov, [facility] [place] [facility] [address] [id number] [place] [address]- 2312 Nov, [facility] [place] [facility] [address] [id number] [place] [address]- 6024 Nov, [facility] [place] [facility] [address] [id number] [place] 3926 Nov, [facility] [place] [facility] [address] [id number] [place] [address]- 3359 Nov, [facility] [place] [facility] [address] [id number] [place] [address]- 8048 Nov, [facility] [place] [facility] [address] [id number] [place] [address] Nov, [facility] [place] [facility] [address] [id number] [place] [address] Oct, [facility] [place] [facility] [address] [id number] [place] [address] Oct, [facility] [place] [facility] [address] [id number] [place] [address] Oct, [facility] [place] [facility] [address] [id number] [place] [address] Oct, [facility] [place] [facility] [address] [id number] [place] [address] Oct, [facility] [place] [facility] [address] [id number] [place] [address] Oct, [facility] [place] [facility] [address] [id number] [place] [address] Oct, [facility] [place] [facility] [address] [id number] [place] [address] Oct, [facility] [place] [facility] [address] [id number] [place] [address] Oct, [facility] [place] [facility] [address] [id number] [place] [address]- [address] 22 Oct, 2013 [facility] [place] [facility] [address] [id number] [place] [address] 16 Oct, 2013 [facility] [place] [facility] [address] [id number] [place] [address] 79[address] 16 Oct, 2013 [facility] [place] [facility] [address] [id number] [place] [address] 14 Oct, 2013 [facility] [place] [facility] [address] [id number] [place] [address]- [address] 14 Oct, 2013 [facility] [place] [facility] [address] [id number] [place] [address] Oct, [facility] [place] [facility] [address] [id number] [place] [address] 4966 13 Oct, 2013 [facility] [place] [facility] [address] [id number] [place] [address]- 74[address] Oct, [facility] [place] [facility] [address] [id number] [place] [address]- [address]694 27 Sep, 2013 [facility] [place] [facility] [address] [id number] [place] [address]- [address] 27 Sep, 2013 [facility] [place] [facility] [address] [id number] [place] [address]609 20 Sep, 2013 [facility] [place] [facility] [address] [id number] [place] [address]- 5734 20 Sep, 2013 [facility] [place] [facility] [address] [id number] [place] [address]- [address] 18 Sep, 2013 [facility] [place] [facility] [address] [id number] [place] [address]- 4827 18 Sep, 2013 [facility] [place] [facility] [address] [id number] [place] [address]- 4044 17 Sep, 2013 [facility] [place] [facility] [address] [id number] [place] [address]337 17 Sep, 2013 [facility] [place] [facility] [address] [id number] [place] [address]- [address] Sep, [facility] [place] [facility] [address] [id number] [place] [address] 59[address] Sep, [facility] [place] [facility] [address] [id number] [place] [address]47 Sep, [facility] [place] [facility] [address] [id number] [place] [address] 132[address] Sep, [facility] [place] [facility] [address] [id number] [place] [address]- 2614 Sep, [facility] [place] [facility] [address] [id number] [place] [address]- 2518 Sep, [facility] [place] [facility] [address] [id number] [place] [address]- 4734 Sep, [facility] [place] [facility] [address] [id number] [place] [address]- [address] Sep, [facility] [place] [facility] [address] [id number] [place] [address]- 6[address] Sep, [facility] [place] [facility] [address] [id number] [place] [address]- 67[address] Sep, [facility] [place] [facility] [address] [id number] [place] [address]- 4723 Sep, [facility] [place] [facility] [address] [id number] [place] [address]- 0664 Sep, [facility] [place] [facility] [address] [id number] [place] [address]004 Sep, [facility] [place] [facility] [address] [id number] [place] [address]- 7775 Sep, [facility] [place] [facility] [address] [id number] [place] [address] August, [facility] [place] [facility] [address] [id number] [place] [address]- 260[address] August, [facility] [place] [facility] [address] [id number] [place] [address]- 8023 August, [facility] [place] [facility] [address] [id number] [place] [address]- 98[address] August, [facility] [place] [facility] [address] [id number] [place] [address] August, [facility] [place] [facility] [address] [id number] [place] [address]- 56[address] August, [facility] [place] [facility] [address] [id number] [place] [address]- 3917 August, [facility] [place] [facility] [address] [id number] [place] [address] 7979 August, [facility] [place] [facility] [address] [id number] [place] [address]- [address]28 August, [facility] [place] [facility] [address] [id number] [place] [address]- 3832 August, [facility] [place] [facility] [address] [id number] [place] [address]- 6356 August, [facility] [place] [facility] [address] [id number] [place] [address]- 8078 Jul, [facility] [place] [facility] [address] [id number] [place] [address]- 0044 Jul, [facility] [place] [facility] [address] [id number] [place] [address]- 8905 Jul, [facility] [place] [facility] [address] [id number] [place] [address]- [address]83 Jul, [facility] [place] [facility] [address] [id number] [place] [address] Jul, [facility] [place] [facility] [address] [id number] [place] [address]- [address]111 Jul, [facility] [place] [facility] [address] [id number] [place] [address]- 7780 Jul, [facility] [place] [facility] [address] [id number] [place] [address] 8450 Jul, [facility] [place] [facility] [address] [id number] [place] [address]- 7117 Jul, [facility] [place] [facility] [address] [id number] [place] [address]- 6989 Jul, [facility] [place] [facility] [address] [id number] [place] [address]- 3146 16 Jul, 2013 [facility] [place] [facility] [address] [id number] [place] [address]- 1207 Jul, [facility] [place] [facility] [address] [id number] [place] [address]- 9912 Jul, [facility] [place] [facility] [address] [id number] [place] [address]- 5337 Jul, [facility] [place] [facility] [address] [id number] [place] [address]- 5624 Jul, [facility] [place] [facility] [address] [id number] [place] [address]- [address]114 Jul, [facility] [place] [facility] [address] [id number] [place] [address]- 6443 Jul, [facility] [place] [facility] [address] [id number] [place] [address]- 5497 Jul, [facility] [place] [facility] [address] [id number] [place] [address]- 6060 Jul, [facility] [place] [facility] [address] [id number] [place] [address] Jul, [facility] [place] [facility] [address] [id number] [place] [address] Jul, [facility] [place] [facility] [address] [id number] [place] [address] Jul, [facility] [place] [facility] [address] [id number] [place] [address]14 Jul, [facility] [address] [id number] [place] [address] 9[address] Jun, [facility] [place] [facility] [address] [id number] [place] [address] 3956 Jun, [facility] [address] [id number] [place] [address] 95[address] Jun, [facility] [place] [facility] [address] [id number] [place] [address] 27[address] Jun, [facility] [address] [id number] [place] [address]- [address] Jun, [facility] [address] [id number] [place] [address]- 3339 Jun, [facility] [place] [facility] [address] [id number] [place] [address]- 5242 Jun, [facility] [address] [id number] [place] [address] 1601 Jun, [facility] [place] [facility] [address] [id number] [place] [address]- 5898 Jun, [facility] [address] [id number] [place] [address]- 0487 Jun, [facility] [place] [facility] [address] [id number] [place] [address]- 7454 Jun, [facility] [place] [facility] [address] [id number] [place] [address]- 5439 Jun, [facility] [place] [facility] [address] [id number] [place] [address]- 6364 May, [facility] [place] [facility] [address] [id number] [place] [address]- 1016 May, [facility] [place] [facility] [address] [id number] [place] [address]- 2867 Apr, [facility] [place] [facility] [address] [id number] [place] [address]- 6643 Apr, [facility] [place] [facility] [address] [id number] [place] [address]- 1988 Apr, [facility] [place] [facility] [address] [id number] [place] [address]- 7878 Apr, [facility] [place] [facility] [address] [id number] [place] [address]- 6147 Apr, [facility] [place] [facility] [address] [id number] [place] [address]- 9357 Apr, [facility] [place] [facility] [address] [id number] [place] [address]- 4106 Apr, [facility] [place] [facility] [address] [id number] [place] [address]- 4793 Apr, [facility] [place] [facility] [address] [id number] [place] [address]- 7724 Apr, [facility] [place] [facility] [address] [id number] [place] [address]- 5081 Apr, [facility] [place] [facility] [address] [id number] [place] [address]- 8470 Apr, [facility] [place] [facility] [address] [id number] [place] [address]- 3785 16 Mar, 2013 [facility] [place] [facility] [address] [id number] [place] [address]- 8801 Mar, [facility] [place] [facility] [address] [id number] [place] [address]- 2509 Mar, [facility] [place] [facility] [address] [id number] [place] [address]- 3305 Mar, [facility] [place] [facility] [address] [id number] [place] [address]- 9796 Feb, [facility] [place] [facility] [address] [id number] [address]- 37[address] Feb, [facility] [place] [facility] [address] [id number] [place] [address]- 8959 Feb, [facility] [place] [facility] [address] [id number], [place] [address]- 7[address] Feb, [facility] [place] [facility] [address] [id number] [place] [address]- 1337 Feb, [facility] [place] [facility] [address] [id number], [place] [address]- 8[address] Feb, [facility] [place] [facility] [address] [id number] [place] [address]- 3432 Feb, [facility] [place] [facility] [address] [id number], [place] [address]- 2552 Feb, [facility] [place] [facility] [address] [id number], [place] [address]- 6998 Feb, [facility] [place] [facility] [address] [id number], [place] [address]- 1771 Feb, [facility] [place] [facility] [address] [id number], [place] [address]- 9583 Feb, [facility] [place] [facility] [address] [id number], [place] [address]- 3284 Jan, [facility] [place] [facility] [address] [id number], [place] [address]- 6645 Jan, [facility] [place] [facility] [address] [id number], [place] [address]- 8151 Jan, [facility] [place] [facility] [address] [id number], [place] [address]- 9547 Jan, [facility] [place] [facility] [address] [id number], [place] [address]- 7068 Jan, [facility] [place] [facility] [address] [id number], [place] [address]- 7257 Jan, [facility] [place] [facility] [address] [id number] [place] [address]- 0426 03 Jan, 2013 [facility] [place] [facility] [address] [id number] [place] [address]- 9086 02 Jan, 2013 [facility] [place] [facility] [address] [id number] [place] [address] 2546 30 Dec, 2012 [facility] [place] [facility] [address] [id number] [place] [address] 2546 25 Dec, 2012 [facility] [place] [facility] [address] [id number] [place] [address] 2547 18 Dec, 2012 [facility] [place] [facility] [address] [id number] [place] [address]- 1770 17 Dec, 2012 [facility] [place] [facility] [address] [id number] [place] [address]- 7006 17 Dec, 2012 [facility] [place] [facility] [address] [id number] [place] [address]- 4191 16 Dec, 2012 [facility] [place] [facility] [address] [id number] [place] [address]- 6037 13 Dec, 2012 [facility] [place] [facility] [address] [id number] [place] [address]- 1992 11 Dec, 2012 [facility] [place] [facility] [address] [id number] [place] [address] 2545 05 Dec, 2012 [facility] [place] [facility] [address] [id number] [place] [address]- 2540 04 Dec, 2012 [facility] [place] [facility] [address] [id number] [place] [address] 2547 30 Nov, 2012 [facility] [place] [facility] [address] [id number] [place] [address] 2544 29 Nov, 2012 [facility] [place] [facility] [address] [id number] [place] [address]- 2547 22 Nov, 2012 [facility] [place] [facility] [address] [id number] [place] [address]- 1761 16 Nov, 2012 [facility] [place] [facility] [address] [id number] [place] [address]- 7700 14 Nov, 2012 [facility] [place] [facility] [address] [id number] [place] [address]- 3428 Nov, [facility] [place] [facility] [address] [id number] [place] [address]- 9427 Nov, [facility] [place] [facility] [address] [id number] [place] [address]- 1355 Oct, [facility] [place] [facility] [address] [id number] [place] [address]- 9133 Oct, [facility] [place] [facility] [address] [id number] [place] [address]- 8030 Oct, [facility] [place] [facility] [address] [id number] [place] [address]- 4118 Oct, [facility] [place] [facility] [address] [id number] [place] [address]- 9404 15 Oct, 2012 [facility] [place] [facility] [address] [id number] [place] [address]- 8131 Oct, [facility] [place] [facility] [address] [id number] [place] [address]- 9458 Sep, [facility] [place] [facility] [address] [id number] [place] [address]- 1143 28 Sep, 2012 [facility] [place] [facility] [address] [id number], [place] [address]- 6336 27 Sep, 2012 [facility] [place] [facility] [address] [id number] [place] [address]- 2201 14 Sep, 2012 [facility] [place] [facility] [address] [id number] [place] [address]- 0946 13 Sep, 2012 [facility] [place] [facility] [address] [id number] [place] [address]- 6554 10 Sep, 2012 [facility] [place] [facility] [address] [id number] [place] [address]- 5114 Sep, [facility] [address] [id number] [place] [address]- 5858 Sep, [facility] [address] [id number] [place] [address]- 9989 Sep, [facility] [address] [id number] [place] [address]- 8136 August, [facility] [address] [id number] [place] [address]- 7885 August, [facility] [address] [id number] [place] [address]- 8953 August, [facility] [address] [id number] [place] [address]- 5191 August, [facility] [address] [id number] [place] [address]- 1425 August, [facility] [address] [id number] [place] [address]- 0390 August, [facility] [address] [id number] [place] [address]- 0797 August, [facility] [address] [id number] [place] [address]- 1929 August, [facility] [address] [id number] [place] [address]- 3711 Jul, [facility] [address] [id number] [place] [address]- 0022 Jul, [facility] [address] [place] [id number] Jul [facility] [address] [id number] [place] [address]- 1893 Jun, [facility] [address] [id number] [place] [address]- 4889 Jun, [facility] [place] [facility] [address] [id number] [place] [address]- 3913 Jun, [facility] [address] [id number] [place] [address]- 1752 Jun, [facility] [place] [facility] [address] [id number] [place] [address]- 0845 Jun, [facility] [address] [id number] [place] [address]- 9319 Jun, [facility] [address] [id number] [place] [address]- 9681 May, [facility] [address] [id number] [place] [address]- 4528 May, [facility] [address] [id number] [place] [address]- 8605 May, [facility] [address] [id number] [place] [address]- 5768 May, [facility] [address] [id number] [place] [address]- 3238 May, [facility] [address] [id number] [place] [address]- 9061 Apr, [facility] [address] [id number] [place] [address]- 5815 Apr, [facility] [address] [id number] [place] [address]- 9981 Apr, [facility] [address] [id number] [place] [address]- 4534 Apr, [facility] [place] [facility] [address] [id number] [place] [address]- 6223 Apr, [facility] [place] [facility] [address] [id number] [place] [address]- 1244 Apr, [facility] [place] [facility] [address] [id number] [place] [address]- 7847 Mar, [facility] [place] [facility] [address] [id number] [place] [address]- 3282 Mar, [facility] [place] [facility] [address] [id number] [place] [address]- 1176 Mar, [facility] [place] [facility] [address] [id number] [place] [address]- 3366 Mar, [facility] [place] [facility] [address] [id number] [place] [address]- 7526 Mar, [facility] [place] [facility] [address] [id number] [place] [address]- 5994 Mar, [facility] [place] [facility] [address] [id number] [place] [address]- 4016 Mar, [facility] [place] [facility] [address] [id number] [place] [address]- 8028 Mar, [facility] [place] [facility] [address] [id number] [place] [address]- 7823 Mar, [facility] [place] [facility] [address] [id number] [place] [address]- 7510 Mar, [facility] [place] [facility] [address] [id number] [place] [address]- 1627 Mar, [facility] [place] [facility] [address] [id number] [place] [address]- 9488 Feb, [facility] [place] [facility] [address] [id number], [place] [address]- 7944 Feb, [facility] [place] [facility] [address] [id number] [place] [address]- 1596 Feb, [facility] [place] [facility] [address] [id number] [place] [address]- 0276 Feb, [facility] [place] [facility] [address] [id number] [place] [address]- 5332 Feb, [facility] [place] [facility] [address] [id number] [place] [address]- 4173 16 Feb, 2012 [facility] [place] [facility] [address] [id number] [place] [address]- 2686 16 Feb, 2012 [facility] [place] [facility] [address] [id number] [place] 295[address] Feb, [facility] [place] [facility] [address] [id number] [place] [address]- 5139 Feb, [facility] [place] [facility] [address] [id number] [place] [address]- 8401 Feb, [facility] [place] [facility] [address] [id number] [place] [address]- 3135 Feb, [facility] [place] [facility] [address] [id number] [place] [address]- 4201 Jan, [facility] [place] [facility] [address] [id number] [place] [address]- 0488 Jan, [facility] [place] [facility] [address] [id number] [place] [address]- 1304 Jan, [facility] [place] [facility] [address] [id number] [place] [address]- 5044 Jan, [facility] [place] [facility] [address] [facility] [id number] [place] [address]- 7907 Jan, [facility] [place] [facility] [address] [id number] [place] [address]- 6316 Jan, [facility] [place] [facility] [address] [id number] [place] [address]- 7802 09 Jan, 2012 [facility] [place] [facility] [address] [id number] [place] [address]- 1952 24 Dec, 2011 [facility] [place] [facility] [address] [id number] [place] [address]- 7482 17 Sep2011 [facility] [place] [facility] [address] [id number] [place] [address]- 9645 13 Dec, 2011 [facility] [place] [facility] [address] [id number] [place] [address]- 5950 Dec, [facility] [place] [facility] [address] [id number] [place] [address]- 5306 Nov, [facility] [place] [facility] [address] [id number] [place] [address]- 5827 Nov, [facility] [place] [facility] [address] [id number] [place] [address]- 4577 Nov, [facility] [place] [facility] [address] [id number] [place] [address]- 0203 15 Nov, 2011 [facility] [place] [facility] [address] [id number] [place] [address]- 8413 Nov, [facility] [place] [facility] [address] [id number] [place] [address]- 8247 Nov, [facility] [place] [facility] [address] [id number] [place] [address]- 6305 Nov, [facility] [place] [facility] [address] [id number] [place] [address]- 9457 Nov, [facility] [place] [facility] [address] [id number] [place] [address]- 4173 Nov, [facility] [place] [facility] [address] [id number] [place] [address]- 2115 Nov, [facility] [place] [facility] [address] [id number] [place] [address]- 8552 Nov, [facility] [place] [facility] [address] [id number] [place] [address]- 7824 Nov, [facility] [place] [facility] [address] [id number] [place] [address]- 0752 Nov, [facility] [place] [facility] [address] [id number] [place] [address]- 9078 Oct, [facility] [place] [facility] [address] [id number] [place] [address]- 1969 Oct, [facility] [place] [facility] [address] [id number] [place] [address]- 7255 Oct, [facility] [place] [facility] [address] [id number] [place] [address]- 3507 Oct, [facility] [place] [facility] [address] [id number] [place] [address]- 3399 Oct, [facility] [place] [facility] [address] [id number] [place] [address]- 7072 Oct, [facility] [place] [facility] [address] [id number] [place] [address]- 1555 Oct, [facility] [place] [facility] [address] [id number] [place] [address]- 7365 Oct, [facility] [place] [facility] [address] [id number] [place] [address]- 8518 Oct, [facility] [place] [facility] [address] [id number] [place] [address]- 7117 Sep, [facility] [place] [facility] [address] [id number] [place] [address]- 3638 Sep, [facility] [place] [facility] [address] [id number] [place] [address]- 7740 Sep, [facility] [place] [facility] [address] [id number] [place] [address]- 4786 Sep, [facility] [place] [facility] [address] [id number] [place] [address]- 6725 Sep, [facility] [place] [facility] [address] [id number] [place] [address]- 8075 Sep, [facility] [place] [facility] [address] [id number] [place] [address]- 1859 Sep, [facility] [place] [facility] [address] [id number] [place] [address]- 9765 Sep, [facility] [place] [facility] [id number] [address] August, [facility] [id number] [address]44 August, [facility] [id number] [address]174 August, [facility] [id number] 7207 August, [facility] [id number], [place] [address]- 5253 August, [facility] [id number] 5400 August, [facility] [id number], [place] [address]- 1503 August, [facility] [id number], [place] [address]- 8721 August, [facility] [id number], [place] [address]- 7920 August, [facility] [id number], [place] [address]- 8061 August, [facility] [address] [id number], [place] [address]- 5767 August, [facility] [id number], [place] [address]- 8084 August, [facility] [address] [id number], [place] [address]- 9818 Oct, IMMUNIZATIONS No Known Immunizations SOCIAL HISTORY Never Assessed REASON FOR VISIT Prior Authorization Request PLAN OF CARE VITAL SIGNS MEDICATIONS Medication Instructions Dosage Frequency Start Date End Date Duration Status Lyrica 150 MG Orally Three times a day 1 capsule 8h 30 days Active RESULTS No Results PROCEDURES [...] Hospitalization History suicidal ideations-[place] 12/28 Hospitalization History hypoxia--[facility] 02/13/2016 Hospitalization History shortness of breath at june 2016 Hospitalization History Shortness of breath at august 2016 Hospitalization History SOB, chest pain at 12/2016
--- OUTSIDE RECORDS SUMMARY | 2018-02-11 12:56 | XMS REPORT ---
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 [affective] disorder F39 [facility] [id number] [place] [address] 11601- 0069 Apr, [facility] [id number] [place] [address] 94871- 2420 Apr, [facility] [id number] [place] [address] 21999- 3260 Apr, [facility] [id number] [place] [address] 71681- 5490 Apr, Dysuria R30.0 and Well woman exam (no gynecological exam) Z00.00 [facility] [id number] [place] [address] 80897- 1509 Mar, [facility] [id number] [place] [address] 29334- 9374 Mar, [facility] [id number] [place] [address] [id number] Mar, Dental examination Z01.20 [facility] [id number] [place] [address] 12813- 2576 Mar, Chronic diarrhea K52.9 ; Intractable vomiting with nausea, vomiting of unspecified type R11.2 ; Cellulitis, unspecified cellulitis site L03.90 ; Type 2 diabetes mellitus with diabetic polyneuropathy E11.42 and Postinflammatory hyperpigmentation L81.0 [facility] [id number] [place] [address] 69844- 3211 Mar, Unspecified mood [affective] disorder F39 [facility] [id number] [place] [address] 89635- 0955 Mar, Unspecified mood [affective] disorder F39 [facility] [address] [facility] [id number], [place] [address]- 7424 Mar, [facility] [address] [facility] [id number], [place] [address]- 9981 Mar, [facility] [address] [facility] [id number], [place] [address]- 3152 Mar, [facility] [address] [facility] [id number] [place] [address] 00071- 9150 Mar, [facility] [address] [facility] [id number], [place] [address]- 7005 Mar, [facility] [address] [facility] [id number] [place] [address] 75372- 4552 Mar, [facility] [id number] [place] [address] 46619- 2920 Feb, Unspecified mood [affective] disorder F39 [facility] [id number], [place] [address]- 4395 Feb, [facility] [id number] [place] [address] 92459- 6194 Feb, [facility] [address], [place] [address]- 4724 Jan, Unspecified mood [affective] disorder F39 [address] [id number] [id number] Jan, Encounter for dental examination Z01.20 [facility] [id number], [place] [address]- 4427 Jan, [facility] [address], [place] [address]- 6635 Jan, [facility] [address], [place] [address]- 8838 Jan, [facility] [address], [place] [address]- 6409 Jan, [facility] [id number] [place] [address] 90060- 1763 Jan, [facility] [id number] [place] [address] 40203- 0558 Jan, Abdominal abscess K65.1 and Dental caries K02.9 [facility] [id number] [place] [address] 62771- 0662 Jan, [facility] [id number] [place] [address] 77893- 8165 30 Dec, 2014 Diabetes with neurological manifestations, type II or unspecified type, not stated as uncontrolled 250.60 ; Essential hypertension, benign 401.1 ; Concussion 850.9 and Skin texture changes 782.8 [facility] [id number] [place] [address] 35708- 2461 Dec, [facility] [address] 25721- 4188 24 Dec, 2014 [facility] [id number] [place] [address] 91706- 4782 Dec, [facility] [id number] [place] [address] 26547- 7451 Dec, [facility] [id number] [place] [address] 30695- 2111 17 Dec, 2014 Affective disorder 296.90 [facility] [id number] [place] [address] 43777- 1458 14 Dec, 2014 [facility] [id number] [place] [address] 88270- 7889 10 Dec, 2014 Affective disorder 296.90 [facility] [id number] [place] [address] 77818- 1655 04 Dec, 2014 [facility] [id number] [place] [address] 58514- 2754 04 Dec, 2014 [facility] [address] [place] [address]- 8804 Dec, [facility] [id number] [place] [address] 69746 2546 Dec, [facility] [id number] [place] [address] 43049 2546 Nov, Affective disorder 296.90 [facility] [id number] [place] [address] 73684 2546 Nov, [facility] [id number] [place] [address] 09051 2546 Nov, Affective disorder 296.90 [facility] [id number] [place] [address] 03045 2546 Nov, Diarrhea 787.91 [facility] [id number] [place] [address] 95027 2546 Nov, [facility] [id number] [place] [address] 55875 2541 Nov, Diarrhea 787.91 [facility] [id number] [place] [address] 40261 2546 Nov, Diarrhea 787.91 and Hyperlipidemia 272.4 [facility] [id number] [place] [address] 92142 2546 Nov, Diarrhea 787.91 [facility] [id number] [place] [address] 04536 2546 Nov, Affective disorder 296.90 [facility] [id number] [place] [address] 40294 2546 Nov, Affective disorder 296.90 [facility] [id number] [place] [address] 08611 2546 Nov, Affective disorder 296.90 [facility] [address] [address] 2548 Nov, [facility] [id number] [place] [address] 31484- 5226 Nov, [facility] [address], [place] [address]- 7170 Nov, [facility] [address], [place] [address]- 9502 Nov, Episodic mood disorder 296.90 [facility] [address], [place] [address]- 9465 Nov, [facility] [id number] [place] [address] 42435- 3777 Nov, [facility] [id number] [place] [address] 08944- 0973 Nov, [facility] [address], [place] [address]- 7161 Nov, [facility] [id number] [place] [address] 27593- 1518 Nov, [facility] [address] [address]- 0987 Nov, Lymphedema 457.1 ; Hyperlipidemia 272.4 ; Essential hypertension, benign 401.1 and Numbness of toes 782.0 [facility] [address] [address]- 6127 Nov, Episodic mood disorder 296.90 [facility] [address] [address]- 9166 Oct, [facility] [address], [place] [address]- 6673 Oct, [facility] [address], [place] [address]- 0346 Oct, [facility] [address], [place] [address]- 0830 Oct, [facility] [address] [address]- 2698 Oct, [facility] [address] [facility] [id number], [place] [address] Oct, 2014 [facility] [address] [facility] [id number] [place] [address] Oct, 2014 [facility] [address] [facility] [id number], [place] [address] Oct, 2014 [facility] [address] [facility] [id number] [place] [address] Oct, Episodic mood disorder 296.90 [facility] [address] [facility] [id number] [place] [address] 30 Sep, 2014 [facility] [address] [facility] [id number], [place] [address] Sep, [facility] [address] [facility] [id number], [place] [address] Sep, [facility] [address] [facility] [id number], [place] [address] Sep, [facility] [address] [facility] [id number], [place] [address] Sep, [facility] [address] [facility] [id number], [place] [address] Sep, Episodic mood disorder 296.90 [facility] [id number] [address] Sep, Unspecified episodic mood disorder 296.90 [facility] [address] [facility] [id number], [place] [address] Sep, [facility] [address] [facility] [id number] [place] [address] Sep, [facility] [address] [facility] [id number], [place] [address] 16 Sep, 2014 Episodic mood disorder 296.90 [facility] [address] [id number], [place] [address] Sep, [facility] [id number], [place] [address] Sep, [facility] [id number] [place] [address] Sep, [facility] [id number] [place] [address] Sep, Hematemesis 578.0 and Vomiting 787.03 [facility] [id number] [place] [address] Sep, Episodic mood disorder 296.90 [facility] [id number] [place] [address] Sep, [facility] [id number] [place] [address] Sep, [facility] [id number] [place] [address]- [address] Sep, Diabetes mellitus without mention of complication, type II or unspecified type, not stated as uncontrolled 250.00 and Other chronic pain 338.29 [facility] [address] [id number] [place] [address] 11738- 5947 Sep, Episodic mood disorder 296.90 [facility] [id number] [place] [address] 23172- 4949 Sep, [facility] [id number] [place] [address] 31902- 5670 Sep, Episodic mood disorder 296.90 [facility] [address] [address] 1860 Sep, [facility] [id number] [place] [address] 40319- 9319 August, [facility] [id number] [place] [address] 68810- 6155 August, [facility] [id number] [place] [address] [place] [address]- 1114 August, Episodic mood disorder 296.90 [facility] [address] [id number], [place] [address] 0993 August, [facility] [address], [place] [address] 0995 August, Unspecified episodic mood disorder 296.90 [facility] [address], [place] [address] 6802 August, Vomiting 787.03 [facility] [address] [id number] 5608 August, [facility] [address], [place] [address]- 9215 August, [facility] [address], [place] [address]- 6953 August, [facility] [address], [place] [address]- 3548 August, [facility] [address], [place] [address]- 5150 August, [facility] [address], [place] [address]- 9970 Jul, [facility] [address], [place] [address]- 6348 Jul, [facility] [address], [place] [address]- 0347 Jul, [facility] [place] [facility] [address] [id number], [place] [address]- 5448 Jun, [facility] [address] [id number] [address] 8138 Jun, [facility] [place] [facility] [address] [id number] 5716 Jun, [facility] [address] [id number], [place] [address]- 8443 Jun, [facility] [place] [facility] [address] [id number] [place] [address]- 3438 Jun, [facility] [place] [facility] [address] [id number] [place] [address]- 9796 Jun, [facility] [place] [facility] [address] [id number] [place] [address]- 3545 Jun, [facility] [place] [facility] [address] [id number] [place] [address]- 7023 Jun, [facility] [place] [facility] [address] [id number] [place] [address]- 1166 Jun, [facility] [place] [facility] [address] [id number] [place] [address]- 5955 Jun, [facility] [place] [facility] [address] [id number] [place] [address]- 5699 Jun, [facility] [place] [facility] [address] [id number] [place] [address]- 7157 Jun, [facility] [place] [facility] [address] [id number] [place] [address]- 0781 Jun, [facility] [place] [facility] [address] [id number] [place] [address]- 2022 Jun, [facility] [place] [facility] [address] [id number] [place] [address]- 3578 Jun, [facility] [place] [facility] [address] [id number] [place] [address]- 4301 Jun, [facility] [place] [facility] [address] [id number] [place] [address]- 3264 Jun, [facility] [place] [facility] [address] [id number] [place] [address]- 9148 Jun, [facility] [place] [facility] [address] [id number] [place] [address]- 9913 Jun, [facility] [place] [facility] [address] [id number] [place] [address]- 8458 21 Jun, 2014 [facility] [place] [facility] [address] [id number] [place] [address]- 7736 21 Jun, 2014 [facility] [place] [facility] [address] [id number] [place] [address]- 8416 20 Jun, 2014 [facility] [place] [facility] [address] [id number] [place] [address]- 6616 20 Jun, 2014 [facility] [place] [facility] [address] [id number] [place] [address]- 9447 20 Jun, 2014 [facility] [place] [facility] [address] [id number] [place] [address]- 2830 20 Jun, 2014 [facility] [place] [facility] [address] [id number] [place] [address]- 7803 19 Jun, 2014 [facility] [place] [facility] [address] [id number] [place] [address]- 7988 19 Jun, 2014 [facility] [place] [facility] [address] [id number] [place] [address]- 8948 18 Jun, 2014 [facility] [place] [facility] [address] [id number] [place] [address]- 3266 18 Jun, 2014 [facility] [place] [facility] [address] [id number] [place] [address]- 1597 17 Jun, 2014 [facility] [place] [facility] [address] [id number] [place] [address]- 0554 17 Jun, 2014 [facility] [place] [facility] [address] [id number] [place] [address]- 0665 16 Jun, 2014 [facility] [place] [facility] [address] [id number] [place] [address]- 8836 16 Jun, 2014 [facility] [place] [facility] [address] [id number] [place] [address]- 6196 16 Jun, 2014 [facility] [place] [facility] [address] [id number] [place] [address]- 0278 16 Jun, 2014 [facility] [place] [facility] [address] [id number] [place] [address]- 9076 16 Jun, 2014 [facility] [place] [facility] [address] [id number] [place] [address]- 2548 16 Jun, 2014 [facility] [place] [facility] [address] [id number] [place] [address]- 6322 Jun, [facility] [place] [facility] [address] [id number] [place] [address]- 6503 Jun, [facility] [place] [facility] [address] [id number] [place] [address]- 3935 Jun, [facility] [place] [facility] [address] [id number] [place] [address]- 2125 Jun, [facility] [place] [facility] [address] [id number] [place] [address]- 8856 Jun, [facility] [place] [facility] [address] [id number] [place] [address]- 1249 Jun, [facility] [place] [facility] [address] [id number] [place] [address]- 8039 Jun, [facility] [place] [facility] [address] [id number] [place] [address]- 8169 Jun, [facility] [place] [facility] [address] [id number], [place] [address]- 7832 Jun, [facility] [place] [facility] [address] [id number], [place] [address]- 8933 Jun, [facility] [place] [facility] [address] [id number] [place] [address]- 3013 Jun, [facility] [place] [facility] [address] [id number] [place] [address]- 5647 Jun, [facility] [place] [facility] [address] [id number] [place] [address]- 8510 Jun, [facility] [place] [facility] [address] [id number] [place] [address]- 0356 Jun, [facility] [place] [facility] [address] [id number] [place] [address]- 6409 Jun, [facility] [place] [facility] [address] [id number] [place] [address]- 8548 Jun, 2014 [facility] [place] [facility] [address] [facility] [id number] [place] [address]- 4668 Jun, [facility] [place] [facility] [address] [id number] [place] [address]- 9906 Jun, [facility] [place] [facility] [address] [id number] [place] [address]- 3958 Jun, [facility] [place] [facility] [address] [facility] [id number] [place] [address]- 5452 Jun, [facility] [place] [facility] [address] [facility] [id number] [place] [address]- 6915 May, 2014 [facility] [place] [facility] [address] [facility] [id number] [place] [address]- 0425 May, [facility] [place] [facility] [address] [id number] [address]- 4284 May, [facility] [place] [facility] [address] [facility] [id number] [place] [address]- 4833 May, [facility] [place] [facility] [address] [facility] [id number] [place] [address]- 2547 May, 2014 [facility] [place] [facility] [address] [facility] [id number] [place] [address]- 2548 May, 2014 [facility] [place] [facility] [address] [facility] [id number] [place] 5490 May, 2014 [facility] [place] [facility] [address] [facility] [id number] [place] 8615 May, 2014 [facility] [place] [facility] [address] [id number] [address]- 1346 May, 2014 [facility] [place] [facility] [address] [facility] [id number] [place] [address]- 2840 20 May, 2014 [facility] [place] [facility] [address] [facility] [id number] [place] [address]- 1089 18 May, 2014 [facility] [place] [facility] [address] [facility] [id number] [place] [address]- 8951 18 May, 2014 [facility] [place] [facility] [address] [facility] [id number] [place] [address]- 6561 13 May, 2014 [facility] [place] [facility] [address] [facility] [id number] [place] [address]- 1093 13 May, 2014 [facility] [place] [facility] [address] [facility] [id number] [place] [address]- 0123 11 May, 2014 [facility] [place] [facility] [address] [id number] [address]- 9094 May, 2014 [facility] [place] [facility] [address] [facility] [id number] [place] [address]- 8399 May, 2014 [facility] [place] [facility] [address] [facility] [id number] [place] [address]- 1710 May, 2014 [facility] [place] [facility] [address] [facility] [id number] [place] [address]- 0311 09 May, 2014 [facility] [place] [facility] [address] [facility] [id number] [place] [address]- 0862 May, 2014 [facility] [place] [facility] [address] [facility] [id number], [place] [address]- 2548 May, 2014 [facility] [place] [facility] [address] [facility] [id number] [place] [address]- 9257 May, 2014 [facility] [place] [facility] [address] [facility] [id number], [place] [address]- 7462 May, 2014 [facility] [place] [facility] [address] [id number] [address]- 0866 May, [facility] [place] [facility] [address] [id number] [place] [address]- 5154 May, [facility] [place] [facility] [address] [id number] [place] [address]- 6996 May, [facility] [place] [facility] [address] [id number] [place] [address]- 3231 May, [facility] [place] [facility] [address] [id number] [place] [address]- 1804 Apr, [facility] [place] [facility] [address] [id number] [place] [address]- 3704 Apr, [facility] [place] [facility] [address] [id number] [place] [address]- 8789 Apr, [facility] [place] [facility] [address] [id number] [place] [address]- 2115 Apr, [facility] [place] [facility] [address] [id number], [place] [address]- 6853 Apr, [facility] [place] [facility] [address] [id number] [place] [address]- 7433 Apr, [facility] [place] [facility] [address] [id number], [place] [address]- 7876 Apr, [facility] [place] [facility] [address] [id number], [place] [address]- 6651 Apr, [facility] [place] [facility] [address] [id number], [place] [address]- 8597 Apr, [facility] [place] [facility] [address] [id number], [place] [address]- 0998 Apr, [facility] [place] [facility] [address] [id number], [place] [address]- 5734 Apr, [facility] [place] [facility] [address] [id number], [place] [address]- 4741 Apr, [facility] [place] [facility] [address] [id number] [place] [address]- 1589 Apr, [facility] [address] [id number] [place] [address]- 9810 Apr, [facility] [place] [facility] [address] [id number] [place] [address]- 8163 Apr, [facility] [place] [facility] [address] [id number] [place] [address]- 1241 Apr, [facility] [place] [facility] [address] [id number] [place] [address]- 5738 Apr, [facility] [place] [facility] [address] [id number] [place] [address]- 3298 Apr, [facility] [place] [facility] [address] [id number] [place] [address]- 9398 Apr, [facility] [address] [id number] [place] [address]- 3525 Apr, [facility] [place] [facility] [address] [id number] [place] [address]- 6487 Mar, [facility] [place] [facility] [address] [id number] [place] [address]- 8152 Mar, [facility] [place] [facility] [address] [id number] [place] [address]- 6936 Mar, [facility] [place] [facility] [address] [id number] [place] [address]- 7004 Mar, [facility] [place] [facility] [address] [id number] [place] [address]- 1275 Mar, [facility] [place] [facility] [address] [id number] [place] [address]- 8031 Mar, [facility] [place] [facility] [address] [id number] [place] [address]- 0810 Mar, [facility] [place] [facility] [address] [id number] [place] [address]- 0907 Mar, [facility] [place] [facility] [address] [id number] [place] [address]- 2555 15 Mar, 2014 [facility] [place] [facility] [address] [id number] [place] [address]- 3900 Mar, [facility] [place] [facility] [address] [id number] [place] [address]- 3073 Mar, [facility] [place] [facility] [address] [id number] [place] [address]- 1991 Mar, [facility] [place] [facility] [address] [id number] [place] [address]- 3113 Mar, [facility] [place] [facility] [address] [id number] [place] [address]- 6402 Mar, [facility] [place] [facility] [address] [id number] [place] [address]- 4712 Mar, [facility] [place] [facility] [address] [id number] [place] [address]- 4364 Mar, [facility] [place] [facility] [address] [id number] [place] [address]- 2944 Feb, [facility] [place] [facility] [address] [id number] [place] [address]- 8031 Feb, [facility] [place] [facility] [address] [id number] [place] [address]- 0939 Feb, [facility] [place] [facility] [address] [id number] [place] [address]- 7218 Feb, [facility] [place] [facility] [address] [id number] [place] [address]- 0266 Feb, [facility] [place] [facility] [address] [id number] [place] [address]- 6894 Feb, [facility] [place] [facility] [address] [id number] [place] [address]- 1946 Feb, [facility] [place] [facility] [address] [id number], [place] [address]- 2394 18 Feb, 2014 [facility] [place] [facility] [address] [id number] [place] [address]- 6935 18 Feb, 2014 [facility] [place] [facility] [address] [id number] [place] [address]- 7878 17 Feb, 2014 [facility] [place] [facility] [address] [id number] [place] [address]- 3009 17 Feb, 2014 [facility] [place] [facility] [address] [id number] [place] [address]- 3377 17 Feb, 2014 [facility] [place] [facility] [address] [id number] [place] [address]- 5566 17 Feb, 2014 [facility] [place] [facility] [address] [id number] [place] [address]- 4193 14 Feb, 2014 [facility] [place] [facility] [address] [id number] [place] [address]- 8403 Feb, [facility] [place] [facility] [address] [id number] [place] [address]- 8607 14 Feb, 2014 [facility] [place] [facility] [address] [id number] [place] [address]- 9998 14 Feb, 2014 [facility] [place] [facility] [address] [id number] [place] [address]- 5260 Feb, [facility] [place] [facility] [address] [id number], [place] [address]- 4423 Feb, [facility] [place] [facility] [address] [id number], [place] [address]- 4115 Feb, [facility] [place] [facility] [address] [id number] [place] [address]- 0467 Feb, [facility] [place] [facility] [address] [id number] [place] [address]- 6623 Jan, [facility] [place] [facility] [address] [id number] [place] [address]- 8661 Jan, [facility] [place] [facility] [address] [id number] [place] [address]- 3019 30 Jan, 2013 [facility] [place] [facility] [address] [id number] [place] [address]- 8150 30 Jan, 2014 [facility] [place] [facility] [address] [id number] [place] [address]- 7144 24 Jan, 2014 [facility] [place] [facility] [address] [id number] [place] [address]- 3225 24 Jan, 2014 [facility] [place] [facility] [address] [id number] [place] [address]- 9580 Jan, [facility] [place] [facility] [address] [id number] [place] [address]- 5358 Jan, [facility] [place] [facility] [address] [id number] [place] [address]- 4475 Jan, [facility] [place] [facility] [address] [id number] [place] [address]- 1453 Jan, [facility] [place] [facility] [address] [id number] [place] [address]- 3540 17 Jan, 2014 [facility] [place] [facility] [address] [id number] [place] [address]- 7928 17 Jan, 2014 [facility] [place] [facility] [address] [id number] [place] [address]- 9516 17 Jan, 2014 [facility] [place] [facility] [address] [id number] [place] [address]- 7675 17 Jan, 2013 [facility] [place] [facility] [address] [id number] [place] [address]- 2188 15 Jan, 2014 [facility] [place] [facility] [address] [id number] [place] [address]- 6967 15 Jan, 2014 [facility] [place] [facility] [address] [id number] [place] [address]- 7671 14 Jan, 2014 [facility] [place] [facility] [address] [id number] [place] [address]- 3084 14 Jan, 2014 [facility] [place] [facility] [address] [id number] [place] [address]- 6294 Jan, [facility] [place] [facility] [address] [id number] [place] [address]- 3273 Jan, [facility] [place] [facility] [address] [id number] [place] [address]- 8637 Jan, [facility] [place] [facility] [address] [id number] [place] [address] Jan, [facility] [place] [facility] [address] [id number] [place] [address] Jan, [facility] [place] [facility] [address] [id number] [place] [address] Jan, [facility] [place] [facility] [address] [id number] [place] [address] Jan, [facility] [place] [facility] [address] [id number], [place] [address] 25 Dec, 2013 [facility] [place] [facility] [address] [id number] [place] [address] 25 Dec, 2013 [facility] [place] [facility] [address] [id number], [place] [address] 23 Dec, 2013 [facility] [place] [facility] [address] [id number], [place] [address] 23 Dec, 2013 [facility] [place] [facility] [address] [id number], [place] [address] 19 Dec, 2013 [facility] [place] [facility] [address] [id number] [place] [address] 19 Dec, 2013 [facility] [place] [facility] [address] [id number], [place] [address] 17 Dec, 2013 [facility] [place] [facility] [address] [id number], [place] [address] 17 Dec, 2013 [facility] [place] [facility] [address] [id number], [place] [address] Sep, 2013 [facility] [place] [facility] [address] [id number] [place] [address] 09 Sep, 2013 [facility] [place] [facility] [address] [id number] [place] [address]491 Dec, 2013 [facility] [place] [facility] [address] [id number] [place] [address]- [address] Dec, 2013 [facility] [place] [facility] [address] [id number] [place] [address] 1694 Dec, 2013 [facility] [place] [facility] [address] [id number] [place] [address]- [address]25 Dec, 2013 [facility] [place] [facility] [address] [id number] [place] [address] Dec, 2013 [facility] [place] [facility] [address] [id number] [place] [address] Dec, 2013 [facility] [place] [facility] [address] [id number] [place] [address] 9397 Dec, 2013 [facility] [place] [facility] [address] [id number] [place] [address] 488[address] Dec, 2013 [facility] [place] [facility] [address] [id number] [place] [address] 7916 Nov, [facility] [place] [facility] [address] [id number] [place] [address]- 4632 Nov, [facility] [place] [facility] [address] [id number] [place] [address] 2631 Nov, [facility] [place] [facility] [address] [id number] [place] [address] Nov, [facility] [place] [facility] [address] [id number] [place] [address]201 Nov, [facility] [place] [facility] [address] [id number] [place] [address] 8700 Nov, [facility] [place] [facility] [address] [id number] [place] [address] 2086 Nov, [facility] [place] [facility] [address] [id number] [place] [address] 7569 Nov, [facility] [place] [facility] [address] [id number] [place] [address] Nov, [facility] [place] [facility] [address] [id number] [place] [address] 7561 Nov, [facility] [place] [facility] [address] [id number] [place] [address] 4183 Nov, [facility] [place] [facility] [address] [id number] [place] [address] Nov, [facility] [place] [facility] [address] [id number] [place] [address] 8459 Oct, [facility] [place] [facility] [address] [id number] [place] [address] 6[address] Oct, [facility] [place] [facility] [address] [id number] [place] [address] 3066 Oct, [facility] [place] [facility] [address] [id number] [place] [address] 0276 Oct, [facility] [place] [facility] [address] [id number] [place] [address] 6851 Oct, [facility] [place] [facility] [address] [id number] [place] [address]- 7296 Oct, [facility] [place] [facility] [address] [id number] [place] [address]- 4814 Oct, [facility] [place] [facility] [address] [id number] [place] [address]- 7365 Oct, [facility] [place] [facility] [address] [id number] [place] [address]- 79[address] Oct, [facility] [place] [facility] [address] [id number] [place] [address]- 1532 22 Oct, 2013 [facility] [place] [facility] [address] [id number] [place] [address]- 7225 16 Oct, 2013 [facility] [place] [facility] [address] [id number] [place] [address]- 2943 16 Oct, 2013 [facility] [place] [facility] [address] [id number] [place] [address]- [address]996 14 Oct, 2013 [facility] [place] [facility] [address] [id number] [place] [address]- [address]307 14 Oct, 2013 [facility] [place] [facility] [address] [id number] [place] [address]- 0400 Oct, [facility] [place] [facility] [address] [id number] [place] [address]- 0418 13 Oct, 2013 [facility] [place] [facility] [address] [id number] [place] [address]- 9970 Oct, [facility] [place] [facility] [address] [id number] [place] [address]- 0014 27 Sep, 2013 [facility] [place] [facility] [address] [id number] [place] [address]- 3899 27 Sep, 2013 [facility] [place] [facility] [address] [id number] [place] [address]- 5767 20 Sep, 2013 [facility] [place] [facility] [address] [id number] [place] [address]- 6850 20 Sep, 2013 [facility] [place] [facility] [address] [id number] [place] [address]- 0023 18 Sep, 2013 [facility] [place] [facility] [address] [id number] [place] [address]- 7854 18 Sep, 2013 [facility] [place] [facility] [address] [id number] [place] [address]- [address]83 17 Sep, 2013 [facility] [place] [facility] [address] [id number] [place] [address]- 1514 17 Sep, 2013 [facility] [place] [facility] [address] [id number] [place] [address]- 5826 Sep, [facility] [place] [facility] [address] [id number] [place] [address]- 2459 Sep, [facility] [place] [facility] [address] [id number] [place] [address]- 0864 Sep, [facility] [place] [facility] [address] [id number] [place] [address]- 0961 Sep, [facility] [place] [facility] [address] [id number] [place] [address]- 5723 Sep, [facility] [place] [facility] [address] [id number] [place] [address]- 5069 Sep, [facility] [place] [facility] [address] [id number] [place] [address]- 1751 Sep, [facility] [place] [facility] [address] [id number] [place] [address] Sep, [facility] [place] [facility] [address] [id number] [place] [address] 9231 Sep, [facility] [place] [facility] [address] [id number] [place] [address] 3509 Sep, [facility] [place] [facility] [address] [id number] [place] [address]- 0810 Sep, [facility] [place] [facility] [address] [id number] [place] [address]- 5829 Sep, [facility] [place] [facility] [address] [id number] [place] [address]- 7703 Sep, [facility] [place] [facility] [address] [id number] [place] [address]- 4520 Sep, [facility] [place] [facility] [address] [id number] [place] [address]- 3038 August, [facility] [place] [facility] [address] [id number] [place] [address]- 0811 August, [facility] [place] [facility] [address] [id number] [place] [address] 7138 August, [facility] [place] [facility] [address] [id number] [place] [address] August, [facility] [place] [facility] [address] [id number] [place] [address]- 0459 August, [facility] [place] [facility] [address] [id number] [place] [address]- 2935 August, [facility] [place] [facility] [address] [id number] [place] [address] 3816 August, [facility] [place] [facility] [address] [id number] [place] [address] August, [facility] [place] [facility] [address] [id number] [place] [address] 8529 August, [facility] [place] [facility] [address] [id number] [place] [address] 8043 August, [facility] [place] [facility] [address] [id number] [place] [address]- 4125 August, [facility] [place] [facility] [address] [id number] [place] [address]- 4477 Jul, [facility] [place] [facility] [address] [id number] [place] [address]- 6680 Jul, [facility] [place] [facility] [address] [id number] [place] [address]- 2894 Jul, [facility] [place] [facility] [address] [id number] [place] [address]- 8146 Jul, [facility] [place] [facility] [address] [id number] [place] [address]- 3210 Jul, [facility] [place] [facility] [address] [id number] [place] [address]- 7341 Jul, [facility] [place] [facility] [address] [id number] [place] [address]- 7129 Jul, [facility] [place] [facility] [address] [id number] [place] [address]- 2805 Jul, [facility] [place] [facility] [address] [id number] [place] [address]- 7929 Jul, [facility] [place] [facility] [address] [id number] [place] [address]- 9383 Jul, [facility] [place] [facility] [address] [id number] [place] [address]- 5177 16 Jul, 2013 [facility] [place] [facility] [address] [id number] [place] [address]- 2041 Jul, [facility] [place] [facility] [address] [id number] [place] [address]- 6485 Jul, [facility] [place] [facility] [address] [id number] [place] [address]- 9266 Jul, [facility] [place] [facility] [address] [id number] [place] [address]- 4017 Jul, [facility] [place] [facility] [address] [id number] [place] [address]- 0094 Jul, [facility] [place] [facility] [address] [id number] [place] [address]- 0057 Jul, [facility] [place] [facility] [address] [id number] [place] [address]- 1130 Jul, [facility] [place] [facility] [address] [id number] [place] [address]- 4122 Jul, [facility] [place] [facility] [address] [id number] [place] [address]- 4389 Jul, [facility] [place] [facility] [address] [id number] [place] [address]- 0714 Jul, [facility] [place] [facility] [address] [id number] [place] [address]- 3985 Jul, [facility] [place] [facility] [address] [id number] [place] [address]- 6195 Jul, [facility] [address] [id number] [place] [address]- 9077 Jun, [facility] [place] [facility] [address] [id number] [place] [address]- 4986 Jun, [facility] [address] [id number] [place] [address]- 1821 Jun, [facility] [place] [facility] [address] [id number] [place] [address]- 6779 Jun, [facility] [address] [id number] [place] [address]- 3259 Jun, [facility] [address] [id number] [place] [address]- 8396 Jun, [facility] [place] [facility] [address] [id number] [place] [address]- 8667 Jun, [facility] [address] [id number] [place] [address]- 0524 Jun, [facility] [place] [facility] [address] [id number] [place] [address]- 9027 Jun, [facility] [address] [id number] [place] [address]- 2704 Jun, [facility] [place] [facility] [address] [id number] [place] [address]- 4943 Jun, [facility] [place] [facility] [address] [id number] [place] [address]- 9546 Jun, [facility] [place] [facility] [address] [id number] [place] [address]- 1151 May, [facility] [place] [facility] [address] [id number] [place] [address]- 0426 May, [facility] [place] [facility] [address] [id number] [place] [address]- 3123 Apr, [facility] [place] [facility] [address] [id number] [place] [address]- 6090 Apr, [facility] [place] [facility] [address] [id number] [place] [address]- 6430 Apr, [facility] [place] [facility] [address] [id number] [place] [address]- 1758 Apr, [facility] [place] [facility] [address] [id number] [place] [address]- 5819 Apr, [facility] [place] [facility] [address] [id number] [place] [address]- 8402 Apr, [facility] [place] [facility] [address] [id number] [place] [address]- 3465 Apr, [facility] [place] [facility] [address] [id number] [place] [address]- 3145 Apr, [facility] [place] [facility] [address] [id number] [place] [address]- 2264 Apr, [facility] [place] [facility] [address] [id number] [place] [address]- 9367 Apr, [facility] [place] [facility] [address] [id number] [place] [address]- 8845 Apr, [facility] [place] [facility] [address] [id number] [place] [address]- 4047 16 Mar, 2013 [facility] [place] [facility] [address] [id number] [place] [address]- 4497 Mar, [facility] [place] [facility] [address] [id number] [place] [address]- 9359 Mar, [facility] [place] [facility] [address] [id number] [place] [address]- 4456 Mar, [facility] [place] [facility] [address] [id number] [place] [address]- 6765 Feb, [facility] [place] [facility] [address] [id number], [place] [address]- 1821 Feb, [facility] [place] [facility] [address] [id number] [place] [address]- 5331 Feb, [facility] [place] [facility] [address] [id number], [place] [address]- 4162 Feb, [facility] [place] [facility] [address] [id number] [place] [address]- 2114 Feb, [facility] [place] [facility] [address] [id number], [place] [address]- 5160 Feb, [facility] [place] [facility] [address] [id number] [place] [address]- 8638 Feb, [facility] [place] [facility] [address] [id number], [place] [address]- 7187 Feb, [facility] [place] [facility] [address] [id number], [place] [address]- 2537 Feb, [facility] [place] [facility] [address] [id number], [place] [address]- 5265 Feb, [facility] [place] [facility] [address] [id number], [place] [address]- 8921 Feb, [facility] [place] [facility] [address] [id number], [place] [address]- 0482 Jan, [facility] [place] [facility] [address] [id number], [place] [address]- 2706 Jan, [facility] [place] [facility] [address] [id number], [place] [address]- 0871 Jan, [facility] [place] [facility] [address] [id number], [place] [address]- 4927 Jan, [facility] [place] [facility] [address] [id number], [place] [address]- 2808 Jan, [facility] [place] [facility] [address] [id number], [place] [address]- 6149 Jan, [facility] [place] [facility] [address] [id number] [place] [address]- 6808 03 Jan, 2013 [facility] [place] [facility] [address] [id number] [place] [address]- 2216 02 Jan, 2013 [facility] [place] [facility] [address] [id number] [place] [address] 2546 30 Dec, 2012 [facility] [place] [facility] [address] [id number] [place] [address] 2546 25 Dec, 2012 [facility] [place] [facility] [address] [id number] [place] [address] 2541 18 Dec, 2012 [facility] [place] [facility] [address] [id number] [place] [address]- 4267 17 Dec, 2012 [facility] [place] [facility] [address] [id number] [place] [address]- 3465 17 Dec, 2012 [facility] [place] [facility] [address] [id number] [place] [address]- 8639 16 Dec, 2012 [facility] [place] [facility] [address] [id number] [place] [address]- 0160 13 Dec, 2012 [facility] [place] [facility] [address] [id number] [place] [address]- 7977 11 Dec, 2012 [facility] [place] [facility] [address] [id number] [place] [address] 2542 05 Dec, 2012 [facility] [place] [facility] [address] [id number] [place] [address]- 2547 04 Dec, 2012 [facility] [place] [facility] [address] [id number] [place] [address] 2545 30 Nov, 2012 [facility] [place] [facility] [address] [id number] [place] [address] 2545 29 Nov, 2012 [facility] [place] [facility] [address] [id number] [place] [address]- 2544 22 Nov, 2012 [facility] [place] [facility] [address] [id number] [place] [address]- 4887 16 Nov, 2012 [facility] [place] [facility] [address] [id number] [place] [address]- 2795 14 Nov, 2012 [facility] [place] [facility] [address] [id number] [place] [address]- 3932 Nov, [facility] [place] [facility] [address] [id number] [place] [address]- 8014 Nov, [facility] [place] [facility] [address] [id number] [place] [address]- 9877 Oct, [facility] [place] [facility] [address] [id number] [place] [address]- 3223 Oct, [facility] [place] [facility] [address] [id number] [place] [address]- 1698 Oct, [facility] [place] [facility] [address] [id number] [place] [address]- 0969 Oct, [facility] [place] [facility] [address] [id number] [place] [address]- 5470 15 Oct, 2012 [facility] [place] [facility] [address] [id number] [place] [address]- 3507 Oct, [facility] [place] [facility] [address] [id number] [place] [address]- 4882 Sep, [facility] [place] [facility] [address] [id number] [place] [address]- 2847 28 Sep, 2012 [facility] [place] [facility] [address] [id number], [place] [address]- 0125 27 Sep, 2012 [facility] [place] [facility] [address] [id number] [place] [address]- 5261 14 Sep, 2012 [facility] [place] [facility] [address] [id number] [place] [address]- 8646 13 Sep, 2012 [facility] [place] [facility] [address] [id number] [place] [address]- 3091 10 Sep, 2012 [facility] [place] [facility] [address] [id number] [place] [address]- 3037 Sep, [facility] [address] [id number] [place] [address]- 9415 Sep, [facility] [address] [id number] [place] [address]- 6782 Sep, [facility] [address] [id number] [place] [address]- 1469 August, [facility] [address] [id number] [place] [address]- 9256 August, [facility] [address] [id number] [place] [address]- 2511 August, [facility] [address] [id number] [place] [address]- 8297 August, [facility] [address] [id number] [place] [address]- 3186 August, [facility] [address] [id number] [place] [address]- 4945 August, [facility] [address] [id number] [place] [address]- 0070 August, [facility] [address] [id number] [place] [address]- 7270 August, [facility] [address] [id number] [place] [address]- 0752 Jul, [facility] [address] [id number] [place] [address]- 7[address] Jul, [address] [facility] [address] [place] [id number] Jul [facility] [address] [id number] [place] [address]- 2210 Jun, [facility] [address] [id number] [place] [address]- 9018 Jun, [facility] [place] [facility] [address] [id number] [place] [address]- 1472 Jun, [facility] [address] [id number] [place] [address]- 1337 Jun, [facility] [place] [facility] [address] [id number] [place] [address]- 3351 Jun, [facility] [address] [id number] [place] [address]- 5838 Jun, [facility] [address] [id number] [place] [address]- 7056 May, [facility] [address] [id number] [place] [address]- 1270 May, [facility] [address] [id number] [place] [address]- 0505 May, [facility] [address] [id number] [place] [address]- 2844 May, [facility] [address] [id number] [place] [address]- 0941 May, [facility] [address] [id number] [place] [address]- 0145 Apr, [facility] [address] [id number] [place] [address]- 3768 Apr, [facility] [address] [id number] [place] [address]- 6280 Apr, [facility] [address] [id number] [place] [address]- 8813 Apr, [facility] [place] [facility] [address] [id number] [place] [address]- 4873 Apr[facility] [place] [facility] [address] [id number] [place] [address]- 1907 Apr, [facility] [place] [facility] [address] [id number] [place] [address]- 7994 Mar, [facility] [place] [facility] [address] [id number] [place] [address]- 9557 Mar, [facility] [place] [facility] [address] [id number] [place] [address]- 9886 Mar, [facility] [place] [facility] [address] [id number] [place] [address]- 1916 Mar, [facility] [place] [facility] [address] [id number] [place] [address]- 0356 Mar, [facility] [place] [facility] [address] [id number] [place] [address]- 1345 Mar, [facility] [place] [facility] [address] [id number] [place] [address]- 9639 Mar, [facility] [place] [facility] [address] [id number] [place] [address]- 0697 Mar, [facility] [place] [facility] [address] [id number] [place] [address]- 3538 Mar, [facility] [place] [facility] [address] [id number] [place] [address]- 8477 Mar, [facility] [place] [facility] [address] [id number] [place] [address]- 7970 Mar, [facility] [place] [facility] [address] [id number] [place] [address]- 1808 Feb, [facility] [place] [facility] [address] [id number], [place] [address]- 4731 Feb, [facility] [place] [facility] [address] [id number] [place] [address]- 7806 Feb, [facility] [place] [facility] [address] [id number] [place] [address]- 4608 Feb, [facility] [place] [facility] [address] [id number] [place] [address]- 8822 Feb, [facility] [place] [facility] [address] [id number] [place] [address]- 6296 16 Feb, 2012 [facility] [place] [facility] [address] [id number] [place] [address]- 4444 16 Feb, 2012 [facility] [place] [facility] [address] [id number] [place] 8142 Feb, [facility] [place] [facility] [address] [id number] [place] [address]- 8785 Feb, [facility] [place] [facility] [address] [id number] [place] [address]- 3667 Feb, [facility] [place] [facility] [address] [id number] [place] [address]- 1918 Feb, [facility] [place] [facility] [address] [id number] [place] [address]- 6830 Jan, [facility] [place] [facility] [address] [id number] [place] [address]- 3874 Jan, [facility] [place] [facility] [address] [id number] [place] [address]- 0580 Jan, [facility] [place] [facility] [address] [id number] [place] [address]- 2558 Jan, [facility] [place] [facility] [address] [facility] [id number] [place] [address]- 2365 Jan, [facility] [place] [facility] [address] [id number] [place] [address]- 0775 Jan, [facility] [place] [facility] [address] [id number] [place] [address]- 9726 09 Jan, 2012 [facility] [place] [facility] [address] [id number] [place] [address]- 1412 24 Dec, 2011 [facility] [place] [facility] [address] [id number] [place] [address]- 3837 17 Sep2011 [facility] [place] [facility] [address] [id number] [place] [address]- 9416 13 Dec, 2011 [facility] [place] [facility] [address] [id number] [place] [address]- 9509 Dec, [facility] [place] [facility] [address] [id number] [place] [address]- 2462 Nov, [facility] [place] [facility] [address] [id number] [place] [address]- 4519 Nov, [facility] [place] [facility] [address] [id number] [place] [address]- 8846 Nov, [facility] [place] [facility] [address] [id number] [place] [address]- 9946 15 Nov, 2011 [facility] [place] [facility] [address] [id number] [place] [address]- 4771 Nov, [facility] [place] [facility] [address] [id number] [place] [address]- 5632 Nov, [facility] [place] [facility] [address] [id number] [place] [address]- 8813 Nov, [facility] [place] [facility] [address] [id number] [place] [address] Nov, [facility] [place] [facility] [address] [id number] [place] [address] Nov, [facility] [place] [facility] [address] [id number] [place] [address] Nov, [facility] [place] [facility] [address] [id number] [place] [address] Nov, [facility] [place] [facility] [address] [id number] [place] [address] Nov, [facility] [place] [facility] [address] [id number] [place] [address] Nov, [facility] [place] [facility] [address] [id number] [place] [address] Oct, [facility] [place] [facility] [address] [id number] [place] [address] Oct, [facility] [place] [facility] [address] [id number] [place] [address] Oct, [facility] [place] [facility] [address] [id number] [place] [address] Oct, [facility] [place] [facility] [address] [id number] [place] [address] Oct, [facility] [place] [facility] [address] [id number] [place] [address] Oct, [facility] [place] [facility] [address] [id number] [place] [address] Oct, [facility] [place] [facility] [address] [id number] [place] [address] Oct, [facility] [place] [facility] [address] [id number] [place] [address] Oct, [facility] [place] [facility] [address] [id number] [place] [address] Sep, [facility] [place] [facility] [address] [id number] [place] [address] Sep, [facility] [place] [facility] [address] [id number] [place] [address] Sep, [facility] [place] [facility] [address] [id number] [place] [address] Sep, [facility] [place] [facility] [address] [id number] [place] [address] Sep, [facility] [place] [facility] [address] [id number] [place] [address] Sep, [facility] [place] [facility] [address] [id number] [place] [address] Sep, [facility] [place] [facility] [address] [id number] [place] [address] Sep, [facility] [place] [facility] [address] [address] [address] August, [facility] [address] [address] August, [facility] [address] [address] August, [facility] [address] [address] [address] August, [facility] [address] [facility] [id number] [address] August, [facility] [address] [address] [address] August, [facility] [address] [place] [address] August, [facility] [address], [place] [address] August, [facility] [address], [place] [address] August, [facility] [address] [place] [address] August, [facility] [id number] [address] August, [facility] [address] [place] [address] August, [facility] [id number], [place] [address] Oct, IMMUNIZATIONS No Known Immunizations SOCIAL HISTORY Never Assessed REASON FOR VISIT Refill Request- Lyrica PLAN OF CARE VITAL SIGNS MEDICATIONS Medication Instructions Dosage Frequency Start Date End Date Duration Status Lyrica 150 MG Orally twice a day 2 capsules 12h 30 days Active RESULTS No Results [...] Surgical History bladder surgery Hospitalization History [facility] for right groin pain 05/2011 Hospitalization History [facility] for wound on buttocks 08/2012 Hospitalization History Via [facility], hypoxia secondary to pneumonia 12/02-12/09 Hospitalization History Pneumonia, elevated CO2 on Bipap was in ICU 08/2013 Hospitalization History Hypoxia, Exacerbation COPD, Chest pain 09/05/15 Hospitalization History suicidal ideations-[facility] 12/28 Hospitalization History hypoxia--[facility] 02/13/2016 Hospitalization History shortness of breath at june 2016 Hospitalization History Shortness of breath at august 2016 Hospitalization History SOB, chest pain at 12/2016
--- OUTSIDE RECORDS SUMMARY | 2018-02-11 12:57 | XMS REPORT ---
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 6008 Jun, [facility] [place] [id number] [place] [address] 48192- 3281 Jun, 2016 Upper respiratory infection J06.9 and Type 2 diabetes mellitus with diabetic polyneuropathy E11.42 [facility] [place] [id number] [place] [address] 38806- 8969 Jun, Unspecified mood [affective] disorder F39 [facility] [place] [id number] [place] [address] 09155- 6112 Jun, [facility] [place] [address], [place] [address]- 6482 Jun, Unspecified mood [affective] disorder F39 [facility] [place] [id number] [place] [address] 09146- 0528 Jun, Unspecified mood [affective] disorder [id number] [place] [address] 75269- 4945 Jun, Unspecified mood [affective] disorder [address] [place] [address] [id number] [place] [address] 77110- 3442 Jun, Unspecified mood [affective] disorder [id number] [place] [address] 37821- 3931 Jun, [facility] [place] [id number] [place] [address] 74040- 1547 Jun, Type 2 diabetes mellitus with hyperglycemia E11.65 ; Oxygen dependent Z99.81 ; Folliculitis L73.9 ; Dysuria R30.0 ; Encounter for contraceptive management Z30.9 and Dog bite W54.0XXA [facility] [place] [id number] [place] [address] 77869- 5715 Jun, Unspecified mood [affective] disorder [address], [place] [address]- 7016 Jun, Type 2 diabetes mellitus with hyperglycemia E11.65 [facility] [place] [address], [place] [address]- 0270 May, Unspecified mood [affective] disorder [address] [place] [address] [id number] [place] [address] 82421- 6198 May, [facility] [place] [address], [place] [address]- 1739 May, [facility] [place] [id number] [place] [address] 84667- 8458 May, [facility] [place] [address], [place] [address]- 8718 Apr, [facility] [place] [id number] [place] [address] 27771- 7225 Apr, Unspecified mood [affective] disorder F39 [facility] [place] [id number] [place] [address] 49586- 4237 Apr, [facility] [place] [id number] [place] [address] 52884- 5715 Apr, [facility] [place] [id number] [place] [address] 32330- 6792 Apr, [facility] [place] [id number] [place] [address] 24843- 7225 Apr, Dysuria R30.0 and Well woman exam (no gynecological exam) Z00.00 [place] [id number] [place] [address] 08079- 1361 Mar, [facility] [place] [id number] [place] [address] 62806- 5468 Mar, [facility] [id number] [place] [address] [id number] Mar, Dental examination Z01.20 [facility] [place] [id number] [place] [address] 95201- 8944 Mar, Chronic diarrhea K52.9 ; Intractable vomiting with nausea, vomiting of unspecified type R11.2 ; Cellulitis, unspecified cellulitis site L03.90 ; Type 2 diabetes mellitus with diabetic polyneuropathy E11.42 and Postinflammatory hyperpigmentation L81.0 [place] [id number] [place] [address] 08363- 8418 Mar, Unspecified mood [affective] disorder F39 [facility] [place] [id number] [place] [address] 46146- 5482 Mar, Unspecified mood [affective] disorder F39 [facility] [place] [address] [facility] [id number], [place] [address]- 4844 Mar, [facility] [address] [facility] [id number], [place] [address]- 8583 Mar, [facility] [address] [facility] [id number], [place] [address]- 4743 Mar, [facility] [place] [address] [facility] [id number] [place] [address] 63368- 5815 Mar, [facility] [place] [address] [facility] [id number], [place] [address]- 5788 Mar, [facility] [address] [facility] [id number] [place] [address] 39814- 6557 Mar, [facility] [id number] [place] [address] 02659- 2036 Feb, Unspecified mood [affective] disorder F39 [facility] [address] [id number], [place] [address]- 9416 Feb, [facility] [id number] [place] [address] 39628- 8818 Feb, [facility] [address], [place] [address]- 4916 Jan, Unspecified mood [affective] disorder F39 [address] [id number] [id number] Jan, Encounter for dental examination Z01.20 [facility] [id number], [place] [address]- 0381 Jan, [facility] [address], [place] [address]- 5066 Jan, [facility] [address], [place] [address]- 3906 Jan, [facility] [address], [place] [address]- 9135 Jan, [facility] [id number] [place] [address] 80366- 3868 Jan, [facility] [id number] [place] [address] 33661- 6755 Jan, Abdominal abscess K65.1 and Dental caries K02.9 [facility] [id number] [place] [address] 52054- 4805 Jan, [facility] [id number] [place] [address] 51333- 6740 30 Dec, 2014 Diabetes with neurological manifestations, type II or unspecified type, not stated as uncontrolled 250.60 ; Essential hypertension, benign 401.1 ; Concussion 850.9 and Skin texture changes 782.8 [facility] [id number] [place] [address] 09975- 8806 Dec, [facility] [address] 59494- 5086 24 Dec, 2014 [facility] [id number] [place] [address] 25536- 2091 Dec, [facility] [id number] [place] [address] 88450- 5703 Dec, [facility] [id number] [place] [address] 62794- 0761 17 Dec, 2014 Affective disorder 296.90 [facility] [id number] [place] [address] [phone] 14 Dec, 2014 [facility] [place] [id number] [place] [address] [phone] 10 Dec, 2014 Affective disorder 296.90 [facility] [place] [id number] [place] [address] [phone] 04 Dec, 2014 [facility] [place] [id number] [place] [address] [phone] 04 Dec, 2014 [facility] [place] [address] [place] [phone] Dec, [facility] [place] [id number] [place] [address] [id number] 2546 Dec, [facility] [place] [id number] [place] [address] [id number] 2546 Nov, Affective disorder 296.90 [facility] [place] [id number] [place] [address] [id number] 2546 Nov, [facility] [place] [id number] [place] [address] [id number] Nov, Affective disorder 296.90 [facility] [place] [id number] [place] [address] [id number] 2546 Nov, Diarrhea 787.91 [facility] [place] [id number] [place] [address] [id number] 2546 Nov, [facility] [place] [id number] [place] [address] [id number] 2544 Nov, Diarrhea 787.91 [facility] [place] [id number] [place] [address] [id number] 2546 Nov, Diarrhea 787.91 and Hyperlipidemia 272.4 [facility] [place] [id number] [place] [address] [id number] 2546 Nov, Diarrhea 787.91 [facility] [place] [id number] [place] [address] [id number] 2546 Nov, Affective disorder 296.90 [facility] [place] [id number] [place] [address] [id number] 2546 Nov, Affective disorder 296.90 [facility] [place] [id number] [place] [address] [id number] 2546 Nov, Affective disorder 296.90 [facility] [place] [id number] [address] 2545 Nov, [facility] [place] [id number] [place] [address]- 4628 Nov, [facility] [place] [address], [place] [address] 4184 Nov, [facility] [place] [address], [place] [address] 8808 Nov, Episodic mood disorder 296.90 [facility] [place] [address], [place] [address] 4428 Nov, [facility] [place] [id number] [place] [address] 56766- 3851 Nov, [facility] [place] [id number] [place] [address] 48357- 1468 Nov, [facility] [place] [address], [place] [address] 9860 Nov, [facility] [place] [id number] [place] [address]88- 7018 Nov, [facility] [place] [address], [place] [address] 4286 Nov, Lymphedema 457.1 ; Hyperlipidemia 272.4 ; Essential hypertension, benign 401.1 and Numbness of toes 782.0 [facility] [place] [address], [place] [address]- 4971 Nov, Episodic mood disorder 296.90 [facility] [place] [address], [place] [address] 8719 Oct, [facility] [place] [address], [place] [address]- 5326 Oct, [facility] [place] [address], [place] [address]- 8148 Oct, [facility] [place] [address], [place] [address]- 6799 Oct, [facility] [place] [address], [place] [address] 0532 Oct, [facility] [address] [address] [id number], [place] [address] 7044 Oct, 2014 [facility] [address] [id number] [place] [address]- 3258 Oct, 2014 [facility] [address] [id number] [address]- 2158 Oct, 2014 [facility] [address] [id number] [place] [address]- 6627 Oct, Episodic mood disorder 296.90 [facility] [address] [id number] [place] [address]- 8294 30 Sep, 2014 [facility] [address] [id number], [place] [address]- 3072 Sep, [facility] [address] [id number], [place] [address] 9824 Sep, [facility] [address] [id number], [place] [address]- 3274 Sep, [facility] [address] [id number], [place] [address]- 4772 Sep, [facility] [address] [id number], [place] [address]- 8662 Sep, Episodic mood disorder 296.90 [facility] [place] [address] [id number], [place] [address]- 1307 Sep, Unspecified episodic mood disorder 296.90 [facility] [place] [address] [id number], [place] [address]- 5361 Sep, [facility] [address] [id number] [place] [address]- 2700 Sep, [facility] [address] [id number], [place] [address]- 0202 16 Sep, 2014 Episodic mood disorder 296.90 [facility] [place] [address] [id number], [place] [address]- 5015 Sep, [facility] [place] [address]005[address], [place] [address]- 5935 Sep, [facility] [place] [id number] [place] [address] 98460- 8086 Sep, [facility] [place] [id number] [place] [address] 51031- 4408 Sep, Hematemesis 578.0 and Vomiting 787.03 [facility] [place] [id number] [place] [address] 54810- 3968 Sep, Episodic mood disorder 296.90 [facility] [place] [id number] [place] [address] 83103- 8632 Sep, [facility] [place] [id number] [place] [address] 78967- 6527 Sep, [facility] [place] [id number] [place] [address] 46105- 0350 Sep, Diabetes mellitus without mention of complication, type II or unspecified type, not stated as uncontrolled 250.00 and Other chronic pain 338.29 [facility] [place] [id number] [place] [address] 86734- 0413 Sep, Episodic mood disorder 296.90 [facility] [place] [id number] [place] [address] 60622- 5730 Sep, [facility] [place] [id number] [place] [address] 90359- 2248 Sep, Episodic mood disorder 296.90 [facility] [place] [address], [place] [address]- 2147 Sep, [facility] [place] [id number] [place] [address] 93340- 0881 August, [facility] [place] [id number] [place] [address] 23921- 8983 August, [facility] [place] [id number] [place] [address] [place] [address]- 5180 August, Episodic mood disorder 296.90 [facility] [address] [id number], [place] [address]- 9559 August, [facility] [address], [place] [address]- 3769 August, Unspecified episodic mood disorder 296.90 [facility] [address], [place] [address]- 1070 August, Vomiting 787.03 [facility] [address] [id number] 2212 August, [facility] [address], [place] [address]- 5583 August, [facility] [address], [place] [address]- 1871 August, [facility] [address], [place] [address]- 3755 August, [facility] [address], [place] [address]- 1048 August, [facility] [address], [place] [address]- 6178 Jul, [facility] [address], [place] [address]- 9044 Jul, [facility] [address], [place] [address]- 5672 Jul, [facility] [place] [facility] [address] [id number], [place] [address]- 1843 Jun, [facility] [id number] [address]- 4064 Jun, [facility] [place] [facility] [id number] 5469 Jun, [facility] [address] [id number], [place] [address]- 2437 Jun, [facility] [place] [facility] [address] [id number] [place] [address]- 1874 Jun, [facility] [place] [facility] [address] [id number] [place] [address]- 7746 Jun, [facility] [place] [facility] [address] [id number] [place] [address]- 7790 Jun, [facility] [place] [facility] [address] [id number] [place] [address]- 7576 Jun, [facility] [place] [facility] [address] [id number] [place] [address]- 2227 Jun, [facility] [place] [facility] [address] [id number] [place] [address]- 4977 Jun, [facility] [place] [facility] [address] [id number] [place] [address]- 5311 Jun, [facility] [place] [facility] [address] [id number] [place] [address]- 0482 Jun, [facility] [place] [facility] [address] [id number] [place] [address]- 4163 Jun, [facility] [place] [facility] [address] [id number] [place] [address]- 1680 Jun, [facility] [place] [facility] [address] [id number] [place] [address]- 1315 Jun, [facility] [place] [facility] [address] [id number] [place] [address]- 4391 Jun, [facility] [place] [facility] [address] [id number] [place] [address]- 7187 Jun, [facility] [place] [facility] [address] [id number] [place] [address]- 5349 Jun, [facility] [place] [facility] [address] [id number] [place] [address]- 9893 Jun, [facility] [place] [facility] [address] [id number] [place] [address]- 1457 21 Jun, 2014 [facility] [place] [facility] [address] [id number] [place] [address]- 6616 21 Jun, 2014 [facility] [place] [facility] [address] [id number] [place] [address]- 1576 20 Jun, 2014 [facility] [place] [facility] [address] [id number] [place] [address]- 8516 20 Jun, 2014 [facility] [place] [facility] [address] [id number] [place] [address]- 8724 20 Jun, 2014 [facility] [place] [facility] [address] [id number] [place] [address]- 9747 20 Jun, 2014 [facility] [place] [facility] [address] [id number] [place] [address]- 8581 19 Jun, 2014 [facility] [place] [facility] [address] [id number] [place] [address]- 4707 19 Jun, 2014 [facility] [place] [facility] [address] [id number] [place] [address]- 3695 18 Jun, 2014 [facility] [place] [facility] [address] [id number] [place] [address]- 5177 18 Jun, 2014 [facility] [place] [facility] [address] [id number] [place] [address]- 5325 17 Jun, 2014 [facility] [place] [facility] [address] [id number] [place] [address]- 4910 17 Jun, 2014 [facility] [place] [facility] [address] [id number] [place] [address]- 7541 16 Jun, 2014 [facility] [place] [facility] [address] [id number] [place] [address]- 4966 16 Jun, 2014 [facility] [place] [facility] [address] [id number] [place] [address]- 1166 16 Jun, 2014 [facility] [place] [facility] [address] [id number] [place] [address]- 7305 16 Jun, 2014 [facility] [place] [facility] [address] [id number] [place] [address]- 0135 16 Jun, 2014 [facility] [place] [facility] [address] [id number] [place] [address]- 0582 16 Jun, 2014 [facility] [place] [facility] [address] [id number] [place] [address]- 6864 Jun, [facility] [place] [facility] [address] [id number] [place] [address]- 4624 Jun, [facility] [place] [facility] [address] [id number] [place] [address]- 1787 Jun, [facility] [place] [facility] [address] [id number] [place] [address]- 6127 Jun, [facility] [place] [facility] [address] [id number] [place] [address]- 2229 Jun, [facility] [place] [facility] [address] [id number] [place] [address]- 7582 Jun, [facility] [place] [facility] [address] [id number] [place] [address]- 5604 Jun, [facility] [place] [facility] [address] [id number] [place] [address]- 9235 Jun, [facility] [place] [facility] [address] [id number], [place] [address]- 2929 Jun, [facility] [place] [facility] [address] [id number], [place] [address]- 6344 Jun, [facility] [place] [facility] [address] [id number] [place] [address]- 3700 Jun, [facility] [place] [facility] [address] [id number] [place] [address]- 7025 Jun, [facility] [place] [facility] [address] [id number] [place] [address]- 6797 Jun, [facility] [place] [facility] [address] [id number] [place] [address]- 4578 Jun, [facility] [place] [facility] [address] [id number] [place] [address]- 0487 Jun, [facility] [place] [facility] [address] [id number] [place] [address]- 4276 Jun, 2014 [facility] [place] [facility] [address] [id number] [place] [address]- 7404 Jun, [facility] [place] [facility] [address] [id number] [place] [address]- 8682 Jun, [facility] [place] [facility] [address] [id number] [place] [address]- 8958 Jun, [facility] [place] [facility] [address] [id number] [place] [address]- 8176 Jun, [facility] [place] [facility] [address] [id number] [place] [address]- 0572 May, 2014 [facility] [place] [facility] [address] [id number] [place] [address]- 1639 May, [facility] [place] [facility] [address] [id number] [place] [address]- 5846 May, [facility] [place] [facility] [address] [id number] [place] [address]- 3852 May, [facility] [place] [facility] [address] [id number] [place] [address]- 2544 May, 2014 [facility] [place] [facility] [address] [id number] [place] [address]- 2547 May, 2014 [facility] [place] [facility] [address] [id number] [place] 2343 May, 2014 [facility] [place] [facility] [address] [id number] [place] 5743 May, 2014 [facility] [place] [facility] [address] [id number] [place] [address]- 1805 May, 2014 [facility] [place] [facility] [address] [id number] [place] [address]- 3969 20 May, 2014 [facility] [place] [facility] [address] [id number] [place] [address]- 8421 18 May, 2014 [facility] [place] [facility] [address] [id number] [place] [address]- 4961 18 May, 2014 [facility] [place] [facility] [address] [id number] [place] [address]- 3487 13 May, 2014 [facility] [place] [facility] [address] [id number] [place] [address]- 8056 13 May, 2014 [facility] [place] [facility] [address] [id number] [place] [address]- 1538 11 May, 2014 [facility] [place] [facility] [address] [id number] [place] [address]- 6696 May, 2014 [facility] [place] [facility] [address] [id number] [place] [address]- 7576 May, 2014 [facility] [place] [facility] [address] [id number] [place] [address]- 6911 May, 2014 [facility] [place] [facility] [address] [id number] [place] [address]- 7993 09 May, 2014 [facility] [place] [facility] [address] [id number] [place] [address]- 5111 May, 2014 [facility] [place] [facility] [address] [id number], [place] [address]- 2545 May, 2014 [facility] [place] [facility] [address] [id number] [place] [address]- 4418 May, 2014 [facility] [place] [facility] [address] [id number], [place] [address]- 6917 May, 2014 [facility] [place] [facility] [address] [id number] [place] [address]- 0077 May, [facility] [place] [facility] [address] [id number] [place] [address]- 5783 May, [facility] [place] [facility] [address] [id number] [place] [address]- 5808 May, [facility] [place] [facility] [address] [id number] [place] [address]- 3968 May, [facility] [place] [facility] [address] [id number] [place] [address]- 5185 Apr, [facility] [place] [facility] [address] [id number] [place] [address]- 1255 Apr, [facility] [place] [facility] [address] [id number] [place] [address]- 3511 Apr, [facility] [place] [facility] [address] [id number] [place] [address]- 6471 Apr, [facility] [place] [facility] [address] [id number], [place] [address]- 4415 Apr, [facility] [place] [facility] [address] [id number] [place] [address]- 4777 Apr, [facility] [place] [facility] [address] [id number], [place] [address]- 8783 Apr, [facility] [place] [facility] [address] [id number], [place] [address]- 3364 Apr, [facility] [place] [facility] [address] [id number], [place] [address]- 4745 Apr, [facility] [place] [facility] [address] [id number], [place] [address]- 5306 Apr, [facility] [place] [facility] [address] [id number], [place] [address]- 7767 Apr, [facility] [place] [facility] [address] [id number], [place] [address]- 7029 Apr, [facility] [place] [facility] [address] [id number] [place] [address]- 8111 Apr, [facility] [address] [id number] [place] [address]- 2171 Apr, [facility] [place] [facility] [address] [id number] [place] [address]- 6118 Apr, [facility] [place] [facility] [address] [id number] [place] [address]- 1366 Apr, [facility] [place] [facility] [address] [id number] [place] [address]- 0397 Apr, [facility] [place] [facility] [address] [id number] [place] [address]- 8145 Apr, [facility] [place] [facility] [address] [id number] [place] [address]- 8787 Apr, [facility] [address] [id number] [place] [address]- 1398 Apr, [facility] [place] [facility] [address] [id number] [place] [address]- 7225 Mar, [facility] [place] [facility] [address] [id number] [place] [address]- 1303 Mar, [facility] [place] [facility] [address] [id number] [place] [address]- 9542 Mar, [facility] [place] [facility] [address] [id number] [place] [address]- 7509 Mar, [facility] [place] [facility] [address] [id number] [place] [address]- 4501 Mar, [facility] [place] [facility] [address] [id number] [place] [address]- 4724 Mar, [facility] [place] [facility] [address] [id number] [place] [address]- 5111 Mar, [facility] [place] [facility] [address] [id number] [place] [address]- 6102 Mar, [facility] [place] [facility] [address] [id number] [place] [address]- 0723 15 Mar, 2014 [facility] [place] [facility] [address] [id number] [place] [address]- 0418 Mar, [facility] [place] [facility] [address] [id number] [place] [address]- 1293 Mar, [facility] [place] [facility] [address] [id number] [place] [address]- 2688 Mar, [facility] [place] [facility] [address] [id number] [place] [address]- 1992 Mar, [facility] [place] [facility] [address] [id number] [place] [address]- 2945 Mar, [facility] [place] [facility] [address] [id number] [place] [address]- 1691 Mar, [facility] [place] [facility] [address] [id number] [place] [address]- 4394 Mar, [facility] [place] [facility] [address] [id number] [place] [address]- 7050 Feb, [facility] [place] [facility] [address] [id number] [place] [address]- 3589 Feb, [facility] [place] [facility] [address] [id number] [place] [address] Feb, [facility] [place] [facility] [address] [id number] [place] [address] Feb, [facility] [place] [facility] [address] [id number] [place] [address] Feb, [facility] [place] [facility] [address] [id number] [place] [address] Feb, [facility] [place] [facility] [address] [id number] [place] [address] Feb, [facility] [place] [facility] [address] [id number], [place] [address] 18 Feb, 2014 [facility] [place] [facility] [address] [id number] [place] [address] 18 Feb, 2014 [facility] [place] [facility] [address] [id number] [place] [address]271 17 Feb, 2014 [facility] [place] [facility] [address] [id number] [place] [address] 2868 17 Feb, 2014 [facility] [place] [facility] [address] [id number] [place] [address] 17 Feb, 2014 [facility] [place] [facility] [address] [id number] [place] [address] 17 Feb, 2014 [facility] [place] [facility] [address] [id number] [place] [address] 14 Feb, 2014 [facility] [place] [facility] [address] [id number] [place] [address] 85[address] Feb, [facility] [place] [facility] [address] [id number] [place] [address] 1475 14 Feb, 2014 [facility] [place] [facility] [address] [id number] [place] [address] 14 Feb, 2014 [facility] [place] [facility] [address] [id number] [place] [address] 27[address] Feb, [facility] [place] [facility] [address] [id number], [place] [address] Feb, [facility] [place] [facility] [address] [id number], [place] [address] Feb, [facility] [place] [facility] [address] [id number] [place] [address]- [address] Feb, [facility] [place] [facility] [address] [id number] [place] [address] Jan, [facility] [place] [facility] [address] [id number] [place] [address] Jan, [facility] [place] [facility] [address] [id number] [place] [address]- [address] 30 Jan, 2013 [facility] [place] [facility] [address] [id number] [place] [address]001 30 Jan, 2014 [facility] [place] [facility] [address] [id number] [place] [address]- 8613 24 Jan, 2014 [facility] [place] [facility] [address] [id number] [place] [address] 9268 24 Jan, 2014 [facility] [place] [facility] [address] [id number] [place] [address]- [address] Jan, [facility] [place] [facility] [address] [id number] [place] [address] 46[address] Jan, [facility] [place] [facility] [address] [id number] [place] [address] 38[address] Jan, [facility] [place] [facility] [address] [id number] [place] [address] Jan, [facility] [place] [facility] [address] [id number] [place] [address]- 1271 17 Jan, 2014 [facility] [place] [facility] [address] [id number] [place] [address] 8270 17 Jan, 2014 [facility] [place] [facility] [address] [id number] [place] [address] 4834 17 Jan, 2014 [facility] [place] [facility] [address] [id number] [place] [address] 1638 17 Jan, 2013 [facility] [place] [facility] [address] [id number] [place] [address]- 2866 15 Jan, 2014 [facility] [place] [facility] [address] [id number] [place] [address]- 6966 15 Jan, 2014 [facility] [place] [facility] [address] [id number] [place] [address] 1126 14 Jan, 2014 [facility] [place] [facility] [address] [id number] [place] [address]90 14 Jan, 2014 [facility] [place] [facility] [address] [id number] [place] [address]- 9826 Jan, [facility] [place] [facility] [address] [id number] [place] [address] Jan, [facility] [place] [facility] [address] [id number] [place] [address] 0890 Jan, [facility] [place] [facility] [address] [id number] [place] [address]- 8399 Jan, [facility] [place] [facility] [address] [id number] [place] [address] 4506 Jan, [facility] [place] [facility] [address] [id number] [place] [address] 3686 Jan, [facility] [place] [facility] [address] [id number] [place] [address]- 5758 Jan, [facility] [place] [facility] [address] [id number], [place] [address] 25 Dec, 2013 [facility] [place] [facility] [address] [id number] [place] [address] 7040 25 Dec, 2013 [facility] [place] [facility] [address] [id number], [place] [address] 23 Dec, 2013 [facility] [place] [facility] [address] [id number], [place] [address] 23 Dec, 2013 [facility] [place] [facility] [address] [id number], [place] [address]222 19 Dec, 2013 [facility] [place] [facility] [address] [id number] [place] [address]- 6895 19 Dec, 2013 [facility] [place] [facility] [address] [id number], [place] [address] 17 Dec, 2013 [facility] [place] [facility] [address] [id number], [place] [address] 2284 17 Dec, 2013 [facility] [place] [facility] [address] [id number], [place] [address] Sep, 2013 [facility] [place] [facility] [address] [id number] [place] [address]- [address] 09 Sep, 2013 [facility] [place] [facility] [address] [id number] [place] [address] Dec, 2013 [facility] [place] [facility] [address] [id number] [place] [address] 3999 Dec, 2013 [facility] [place] [facility] [address] [id number] [place] [address] 0460 Dec, 2013 [facility] [place] [facility] [address] [id number] [place] [address] Dec, 2013 [facility] [place] [facility] [address] [id number] [place] [address] 64[address] Dec, 2013 [facility] [place] [facility] [address] [id number] [place] [address]23 Dec, 2013 [facility] [place] [facility] [address] [id number] [place] [address] 4300 Dec, 2013 [facility] [place] [facility] [address] [id number] [place] [address] 3443 Dec, 2013 [facility] [place] [facility] [address] [id number] [place] [address] 1306 Nov, [facility] [place] [facility] [address] [id number] [place] [address] 7624 Nov, [facility] [place] [facility] [address] [id number] [place] [address] 6559 Nov, [facility] [place] [facility] [address] [id number] [place] [address]- 6583 Nov, [facility] [place] [facility] [address] [id number] [place] [address]- 3385 Nov, [facility] [place] [facility] [address] [id number] [place] [address]- 7044 Nov, [facility] [place] [facility] [address] [id number] [place] [address] 1208 Nov, [facility] [place] [facility] [address] [id number] [place] [address]- 3055 Nov, [facility] [place] [facility] [address] [id number] [place] [address] Nov, [facility] [place] [facility] [address] [id number] [place] [address]- 0276 Nov, [facility] [place] [facility] [address] [id number] [place] [address]- 2482 Nov, [facility] [place] [facility] [address] [id number] [place] [address]- 8043 Nov, [facility] [place] [facility] [address] [id number] [place] [address]- 0644 Oct, [facility] [place] [facility] [address] [id number] [place] [address]- 8555 Oct, [facility] [place] [facility] [address] [id number] [place] [address]- 8545 Oct, [facility] [place] [facility] [address] [id number] [place] [address]- 7871 Oct, [facility] [place] [facility] [address] [id number] [place] [address]- 4246 Oct, [facility] [place] [facility] [address] [id number] [place] [address]- 5419 Oct, [facility] [place] [facility] [address] [id number] [place] [address]- 0663 Oct, [facility] [place] [facility] [address] [id number] [place] [address]- 9216 Oct, [facility] [place] [facility] [address] [id number] [place] [address]- 6933 Oct, [facility] [place] [facility] [address] [id number] [place] [address]- 7403 22 Oct, 2013 [facility] [place] [facility] [address] [id number] [place] [address]- 3291 16 Oct, 2013 [facility] [place] [facility] [address] [id number] [place] [address]- 4585 16 Oct, 2013 [facility] [place] [facility] [address] [id number] [place] [address]- 7578 14 Oct, 2013 [facility] [place] [facility] [address] [id number] [place] [address]- 2331 14 Oct, 2013 [facility] [place] [facility] [address] [id number] [place] [address]- 8970 Oct, [facility] [place] [facility] [address] [id number] [place] [address]- 0956 13 Oct, 2013 [facility] [place] [facility] [address] [id number] [place] [address]- 1072 Oct, [facility] [place] [facility] [address] [id number] [place] [address]- 2970 27 Sep, 2013 [facility] [place] [facility] [address] [id number] [place] [address]- 9325 27 Sep, 2013 [facility] [place] [facility] [address] [id number] [place] [address]- 6304 20 Sep, 2013 [facility] [place] [facility] [address] [id number] [place] [address]- 2187 20 Sep, 2013 [facility] [place] [facility] [address] [id number] [place] [address]- 3850 18 Sep, 2013 [facility] [place] [facility] [address] [id number] [place] [address]- 9489 18 Sep, 2013 [facility] [place] [facility] [address] [id number] [place] [address]- 3530 17 Sep, 2013 [facility] [place] [facility] [address] [id number] [place] [address]- 5721 17 Sep, 2013 [facility] [place] [facility] [address] [id number] [place] [address]- 7380 Sep, [facility] [place] [facility] [address] [id number] [place] [address]- 3721 Sep, [facility] [place] [facility] [address] [id number] [place] [address]- 2602 Sep, [facility] [place] [facility] [address] [id number] [place] [address]- 8933 Sep, [facility] [place] [facility] [address] [id number] [place] [address]- 5296 Sep, [facility] [place] [facility] [address] [id number] [place] [address]- 9485 Sep, [facility] [place] [facility] [address] [id number] [place] [address]- 5256 Sep, [facility] [place] [facility] [address] [id number] [place] [address]- 8476 Sep, [facility] [place] [facility] [address] [id number] [place] [address]- 0187 Sep, [facility] [place] [facility] [address] [id number] [place] [address]- 5547 Sep, [facility] [place] [facility] [address] [id number] [place] [address]- 3914 Sep, [facility] [place] [facility] [address] [id number] [place] [address]- 6778 Sep, [facility] [place] [facility] [address] [id number] [place] [address]- 6968 Sep, [facility] [place] [facility] [address] [id number] [place] [address]- 9326 Sep, [facility] [place] [facility] [address] [id number] [place] [address]- 6944 August, [facility] [place] [facility] [address] [id number] [place] [address]- 5263 August, [facility] [place] [facility] [address] [id number] [place] [address]- 2911 August, [facility] [place] [facility] [address] [id number] [place] [address]- 7204 August, [facility] [place] [facility] [address] [id number] [place] [address]- 3392 August, [facility] [place] [facility] [address] [id number] [place] [address]- 8247 August, [facility] [place] [facility] [address] [id number] [place] [address]- 0626 August, [facility] [place] [facility] [address] [id number] [place] [address]- 4757 August, [facility] [place] [facility] [address] [id number] [place] [address]- 3901 August, [facility] [place] [facility] [address] [id number] [place] [address]- 3674 August, [facility] [place] [facility] [address] [id number] [place] [address]- 7967 August, [facility] [place] [facility] [address] [id number] [place] [address]- 6566 Jul, [facility] [place] [facility] [address] [id number] [place] [address]- 8252 Jul, [facility] [place] [facility] [address] [id number] [place] [address]- 7097 Jul, [facility] [place] [facility] [address] [id number] [place] [address]- 5954 Jul, [facility] [place] [facility] [address] [id number] [place] [address]- 8061 Jul, [facility] [place] [facility] [address] [id number] [place] [address]- 6720 Jul, [facility] [place] [facility] [address] [id number] [place] [address]- 0632 Jul, [facility] [place] [facility] [address] [id number] [place] [address]- 9520 Jul, [facility] [place] [facility] [address] [id number] [place] [address]- 7722 Jul, [facility] [place] [facility] [address] [id number] [place] [address]- 5585 Jul, [facility] [place] [facility] [address] [id number] [place] [address]- 7109 16 Jul, 2013 [facility] [place] [facility] [address] [id number] [place] [address]- 8967 Jul, [facility] [place] [facility] [address] [id number] [place] [address]- 9016 Jul, [facility] [place] [facility] [address] [id number] [place] [address]- 5838 Jul, [facility] [place] [facility] [address] [id number] [place] [address]- 0975 Jul, [facility] [place] [facility] [address] [id number] [place] [address]- 9270 Jul, [facility] [place] [facility] [address] [id number] [place] [address]- 0473 Jul, [facility] [place] [facility] [address] [id number] [place] [address]- 3623 Jul, [facility] [place] [facility] [address] [id number] [place] [address]- 9210 Jul, [facility] [place] [facility] [address] [id number] [place] [address]- 6785 Jul, [facility] [place] [facility] [address] [id number] [place] [address]- 8049 Jul, [facility] [place] [facility] [address] [id number] [place] [address]- 2153 Jul, [facility] [place] [facility] [address] [id number] [place] [address]- 0292 Jul, [facility] [address] [id number] [place] [address]- 0466 Jun, [facility] [place] [facility] [address] [id number] [place] [address]- 2206 Jun, [facility] [address] [id number] [place] [address]- 0826 Jun, [facility] [place] [facility] [address] [id number] [place] [address]- 9896 Jun, [facility] [address] [id number] [place] [address]- 1717 Jun, [facility] [address] [id number] [place] [address]- 6713 Jun, [facility] [place] [facility] [address] [id number] [place] [address]- 3494 Jun, [facility] [address] [id number] [place] [address]- 5587 Jun, [facility] [place] [facility] [address] [id number] [place] [address]- 7220 Jun, [facility] [address] [id number] [place] [address]- 4746 Jun, [facility] [place] [facility] [address] [id number] [place] [address]- 5246 Jun, [facility] [place] [facility] [address] [id number] [place] [address]- 5161 Jun, [facility] [place] [facility] [address] [id number] [place] [address]- 1079 May, [facility] [place] [facility] [address] [id number] [place] [address]- 2226 May, [facility] [place] [facility] [address] [id number] [place] [address]- 3183 Apr, [facility] [place] [facility] [address] [id number] [place] [address]- 1903 Apr, [facility] [place] [facility] [address] [id number] [place] [address]- 1809 Apr, [facility] [place] [facility] [address] [id number] [place] [address]- 1180 Apr, [facility] [place] [facility] [address] [id number] [place] [address]- 1451 Apr, [facility] [place] [facility] [address] [id number] [place] [address]- 0870 Apr, [facility] [place] [facility] [address] [id number] [place] [address]- 6598 Apr, [facility] [place] [facility] [address] [id number] [place] [address]- 9261 Apr, [facility] [place] [facility] [address] [id number] [place] [address]- 4307 Apr, [facility] [place] [facility] [address] [id number] [place] [address]- 9908 Apr, [facility] [place] [facility] [address] [id number] [place] [address]- 5769 Apr, [facility] [place] [facility] [address] [id number] [place] [address]- 4564 16 Mar, 2013 [facility] [place] [facility] [address] [id number] [place] [address]- 5366 Mar, [facility] [place] [facility] [address] [id number] [place] [address]- 2500 Mar, [facility] [place] [facility] [address] [id number] [place] [address]- 7191 Mar, [facility] [place] [facility] [address] [id number] [place] [address]- 0096 Feb, [facility] [place] [facility] [address] [id number], [place] [address]- 3685 Feb, [facility] [place] [facility] [address] [id number] [place] [address]- 7508 Feb, [facility] [place] [facility] [address] [id number], [place] [address]- 4378 Feb, [facility] [place] [facility] [address] [id number] [place] [address]- 3653 Feb, [facility] [place] [facility] [address] [id number], [place] [address]- 9015 Feb, [facility] [place] [facility] [address] [id number] [place] [address]- 1937 Feb, [facility] [place] [facility] [address] [id number], [place] [address]- 3108 Feb, [facility] [place] [facility] [address] [id number], [place] [address]- 1415 Feb, [facility] [place] [facility] [address] [id number], [place] [address]- 7056 Feb, [facility] [place] [facility] [address] [id number], [place] [address]- 4185 Feb, [facility] [place] [facility] [address] [id number], [place] [address]- 3867 Jan, [facility] [place] [facility] [address] [id number], [place] [address]- 7342 Jan, [facility] [place] [facility] [address] [id number], [place] [address]- 5169 Jan, [facility] [place] [facility] [address] [id number], [place] [address]- 0856 Jan, [facility] [place] [facility] [address] [id number], [place] [address]- 2060 Jan, [facility] [place] [facility] [address] [id number], [place] [address]- 5821 Jan, [facility] [place] [facility] [address] [id number] [place] [address]- 1601 03 Jan, 2013 [facility] [place] [facility] [address] [id number] [place] [address]- 0416 02 Jan, 2013 [facility] [place] [facility] [address] [id number] [place] [address] 2546 30 Dec, 2012 [facility] [place] [facility] [address] [id number] [place] [address] 2546 25 Dec, 2012 [facility] [place] [facility] [address] [id number] [place] [address] 2548 18 Dec, 2012 [facility] [place] [facility] [address] [id number] [place] [address]- 2518 17 Dec, 2012 [facility] [place] [facility] [address] [id number] [place] [address]- 1522 17 Dec, 2012 [facility] [place] [facility] [address] [id number] [place] [address]- 0170 16 Dec, 2012 [facility] [place] [facility] [address] [id number] [place] [address]- 7101 13 Dec, 2012 [facility] [place] [facility] [address] [id number] [place] [address]- 9528 11 Dec, 2012 [facility] [place] [facility] [address] [id number] [place] [address] 2541 05 Dec, 2012 [facility] [place] [facility] [address] [id number] [place] [address]- 2542 04 Dec, 2012 [facility] [place] [facility] [address] [id number] [place] [address] 2542 30 Nov, 2012 [facility] [place] [facility] [address] [id number] [place] [address] 2542 29 Nov, 2012 [facility] [place] [facility] [address] [id number] [place] [address]- 2542 22 Nov, 2012 [facility] [place] [facility] [address] [id number] [place] [address]- 8435 16 Nov, 2012 [facility] [place] [facility] [address] [id number] [place] [address]- 4235 14 Nov, 2012 [facility] [place] [facility] [address] [id number] [place] [address]- 1402 Nov, [facility] [place] [facility] [address] [id number] [place] [address]- 1982 Nov, [facility] [place] [facility] [address] [id number] [place] [address]- 6850 Oct, [facility] [place] [facility] [address] [id number] [place] [address]- 6752 Oct, [facility] [place] [facility] [address] [id number] [place] [address]- 5666 Oct, [facility] [place] [facility] [address] [id number] [place] [address]- 4911 Oct, [facility] [place] [facility] [address] [id number] [place] [address]- 9141 15 Oct, 2012 [facility] [place] [facility] [address] [id number] [place] [address]- 0041 Oct, [facility] [place] [facility] [address] [id number] [place] [address]- 8930 Sep, [facility] [place] [facility] [address] [id number] [place] [address]- 2320 28 Sep, 2012 [facility] [place] [facility] [address] [id number], [place] [address]- 1670 27 Sep, 2012 [facility] [place] [facility] [address] [id number] [place] [address]- 0619 14 Sep, 2012 [facility] [place] [facility] [address] [id number] [place] [address]- 6753 13 Sep, 2012 [facility] [place] [facility] [address] [id number] [place] [address]- 1018 10 Sep, 2012 [facility] [place] [facility] [address] [id number] [place] [address]- 6250 Sep, [facility] [address] [id number] [place] [address]- 8135 Sep, [facility] [address] [id number] [place] [address]- 0529 Sep, [facility] [address] [id number] [place] [address]- 1006 August, [facility] [address] [id number] [place] [address]- 1416 August, [facility] [address] [id number] [place] [address]- 1940 August, [facility] [address] [id number] [place] [address]- 4382 August, [facility] [address] [id number] [place] [address]- 5497 August, [facility] [address] [id number] [place] [address]- 8259 August, [facility] [address] [id number] [place] [address]- 4370 August, [facility] [address] [id number] [place] [address]- 1494 August, [facility] [address] [id number] [place] [address]- 9264 Jul, [facility] [address] [id number] [place] [address]- 0475 Jul, [facility] [address] [place] [id number] Jul [facility] [address] [id number] [place] [address]- 1576 Jun, [facility] [address] [id number] [place] [address]- 6962 Jun, [facility] [place] [facility] [address] [id number] [place] [address]- 1388 Jun, [facility] [address] [id number] [place] [address]- 5663 Jun, [facility] [place] [facility] [address] [id number] [place] [address]- 0242 Jun, [facility] [address] [id number] [place] [address]- 7291 Jun, [facility] [address] [id number] [place] [address]- 8149 May, [facility] [address] [id number] [place] [address]- 3234 May, [facility] [address] [id number] [place] [address]- 8090 May, [facility] [address] [id number] [place] [address]- 3621 May, [facility] [address] [id number] [place] [address]- 9963 May, [facility] [address] [id number] [place] [address] Apr, [facility] [address] [id number] [place] [address] Apr, [facility] [address] [id number] [place] [address] Apr, [facility] [address] [id number] [place] [address] Apr, [facility] [place] [facility] [address] [id number] [place] [address] Apr, [facility] [place] [facility] [address] [id number] [place] [address] Apr, [facility] [place] [facility] [address] [id number] [place] [address] Mar, [facility] [place] [facility] [address] [id number] [place] [address] Mar, [facility] [place] [facility] [address] [id number] [place] [address] Mar, [facility] [place] [facility] [address] [id number] [place] [address] Mar, [facility] [place] [facility] [address] [id number] [place] [address] Mar, [facility] [place] [facility] [address] [id number] [place] [address] Mar, [facility] [place] [facility] [address] [id number] [place] [address] Mar, [facility] [place] [facility] [address] [id number] [place] [address] Mar, [facility] [place] [facility] [address] [id number] [place] [address] Mar, [facility] [place] [facility] [address] [id number] [place] [address] Mar, [facility] [place] [facility] [address] [id number] [place] [address] Mar, [facility] [place] [facility] [address] [id number] [place] [address] Feb, [facility] [place] [facility] [address] [id number] [address] Feb, [facility] [place] [facility] [address] [id number] [place] [address] Feb, [facility] [place] [facility] [address] [id number] [place] [address] Feb, [facility] [place] [facility] [address] [id number] [place] [address]44 Feb, [facility] [place] [facility] [address] [id number] [place] [address]- [address] 16 Feb, 2012 [facility] [place] [facility] [address] [id number] [place] [address] 16 Feb, 2012 [facility] [place] [facility] [address] [id number] [place] [address] Feb, [facility] [place] [facility] [address] [id number] [place] [address] Feb, [facility] [place] [facility] [address] [id number] [place] [address] Feb, [facility] [place] [facility] [address] [id number] [place] [address] Feb, [facility] [place] [facility] [address] [id number] [place] [address] Jan, [facility] [place] [facility] [address] [id number] [place] [address] Jan, [facility] [place] [facility] [address] [id number] [place] [address] Jan, [facility] [place] [facility] [address] [id number] [place] [address] Jan, [facility] [place] [facility] [address] [facility] [id number] [place] [address] Jan, [facility] [place] [facility] [address] [id number] [place] [address] Jan, [facility] [place] [facility] [address] [id number] [place] [address]- [address] 09 Jan, 2012 [facility] [place] [facility] [address] [id number] [place] [address] 24 Dec, 2011 [facility] [place] [facility] [address] [id number] [place] [address] 17 Sep2011 [facility] [place] [facility] [address] [id number] [place] [address] 13 Dec, 2011 [facility] [place] [facility] [address] [id number] [place] [address] Dec, [facility] [place] [facility] [address] [id number] [place] [address] Nov, [facility] [place] [facility] [address] [id number] [place] [address]- [address] Nov, [facility] [place] [facility] [address] [id number] [place] [address]- [address] Nov, [facility] [place] [facility] [address] [id number] [place] [address]- [address] 15 Nov, 2011 [facility] [place] [facility] [address] [id number] [place] [address] Nov, [facility] [place] [facility] [address] [id number] [place] [address] Nov, [facility] [place] [facility] [address] [id number] [place] [address]- [address] Nov, [facility] [place] [facility] [address] [id number] [place] [address]- [address] Nov, [facility] [place] [facility] [address] [id number] [place] [address]- [address] Nov, [facility] [place] [facility] [address] [id number] [place] [address]- 69[address] Nov, [facility] [place] [facility] [address] [id number] [place] [address]- [address] Nov, [facility] [place] [facility] [address] [id number] [place] [address]- [address] Nov, [facility] [place] [facility] [address] [id number] [place] [address]- [address] Nov, [facility] [place] [facility] [address] [id number] [place] [address] Oct, [facility] [place] [facility] [address] [id number] [place] [address]- [address] Oct, [facility] [place] [facility] [address] [id number] [place] [address]- [address] Oct, [facility] [place] [facility] [address] [id number] [place] [address] Oct, [facility] [place] [facility] [address] [id number] [place] [address] Oct, [facility] [place] [facility] [address] [id number] [place] [address] Oct, [facility] [place] [facility] [address] [id number] [place] [address]- [address] Oct, [facility] [place] [facility] [address] [id number] [place] [address]- [address] Oct, [facility] [place] [facility] [address] [id number] [place] [address]- [address]66 Oct, [facility] [place] [facility] [address] [id number] [place] [address]- [address] Sep, [facility] [place] [facility] [address] [id number] [place] [address]- [address] Sep, [facility] [place] [facility] [address] [id number] [place] [address]- [address] Sep, [facility] [place] [facility] [address] [id number] [place] [address]- [address] Sep, [facility] [place] [facility] [address] [id number] [place] [address]- [address] Sep, [facility] [place] [facility] [address] [id number] [place] [address]- [address] Sep, [facility] [place] [facility] [address] [id number] [place] [address]- [address] Sep, [facility] [place] [facility] [address] [id number] [place] [address] Sep, [facility] [place] [facility] [address] [id number], [place] [address] August, [facility] [place] [address] [id number] [address] August, [facility] [place] [address] [id number], [place] [address] August, [facility] [place] [address] [id number], [place] [address] August, [facility] [place] [address] [id number], [place] [address] August, [facility] [place] [address] [id number], [place] [address] August, [facility] [place] [address] [id number], [place] [address] August, [facility] [place] [id number], [place] [address] August, [facility] [place] [address] [id number], [place] [address] August, [facility] [place] [id number], [place] [address] August, [facility] [place] [address] [id number], [place] [address] August, [facility] [place] [address] [id number], [place] [address] August, [facility] [place] [address] [id number], [place] [address] Oct, IMMUNIZATIONS No Known Immunizations SOCIAL HISTORY Never Assessed REASON FOR VISIT Glucometer request PLAN OF CARE VITAL SIGNS MEDICATIONS Medication Instructions Dosage Frequency Start Date End Date Duration Status Test strips as directed Oct, Active Glucometer glucometer as directed Oct, Active Lancets - as directed Nov, Active RESULTS No Results PROCEDURES No Known [...] Surgical History bladder surgery Hospitalization History [facility] for right groin pain 05/2011 Hospitalization History [facility] for wound on buttocks 08/2012 Hospitalization History [facility], hypoxia secondary to pneumonia 12/02-12/09 Hospitalization History Pneumonia, elevated CO2 on Bipap was in ICU 08/2013 Hospitalization History Hypoxia, Exacerbation COPD, Chest pain 09/05/15 Hospitalization History suicidal ideations-[place] 12/28 Hospitalization History hypoxia--[facility] 02/13/2016 Hospitalization History shortness of breath at june 2016 Hospitalization History Shortness of breath at august 2016 Hospitalization History SOB, chest pain at 12/2016
--- OUTSIDE RECORDS SUMMARY | 2018-02-11 12:59 | XMS REPORT ---
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 May, [facility] [address], [place] [address]- 9463 Apr, [facility] [id number] [place] [address] 72769- 5808 Apr, Unspecified mood [affective] disorder F39 [facility] [id number] [place] [address] 15018- 9596 Apr, [facility] [id number] [place] [address] 59014- 8544 Apr, [facility] [id number] [place] [address] 64551- 2199 Apr, [facility] [id number] [place] [address] 72686- 0644 Apr, Dysuria R30.0 and Well woman exam (no gynecological exam) Z00.00 [facility] [id number] [place] [address] 09648- 2406 Mar, [facility] [id number] [place] [address] 93730- 9835 Mar, [facility] [id number] [place] [address] [id number] Mar, Dental examination Z01.20 [facility] [address] [place] [address] 91636- 5486 Mar, Chronic diarrhea K52.9 ; Intractable vomiting with nausea, vomiting of unspecified type R11.2 ; Cellulitis, unspecified cellulitis site L03.90 ; Type 2 diabetes mellitus with diabetic polyneuropathy E11.42 and Postinflammatory hyperpigmentation L81.0 [facility] [id number] [place] [address] 35063- 1887 Mar, Unspecified mood [affective] disorder F39 [facility] [address], [place] [address]- 5403 Mar, Unspecified mood [affective] disorder F39 [facility] [address] [facility] [id number], [place] [address]- 8486 Mar, [facility] [address] [facility] [id number], [place] [address]- 6542 Mar, [facility] [address] [facility] [id number], [place] [address]- 6775 Mar, [facility] [address] [facility] [id number] [place] [address] 26127- 4575 Mar, [facility] [address] [facility] [id number] [place] [address] 18117- 3324 Mar, [facility] [address] [facility] [id number] [place] [address] 99068- 6226 Mar, [facility] [id number] [place] [address] 09037- 3601 Feb, Unspecified mood [affective] disorder F39 [facility] [address] [facility] [id number], [place] [address]- 9621 Feb, [facility] [id number], [place] [address]- 6678 Feb, [facility] [address], [place] [address]- 3645 Jan, Unspecified mood [affective] disorder F39 [address] [id number] [id number] Jan, Encounter for dental examination Z01.20 [facility] [address] [facility] [id number], [place] [address]- 2470 Jan, [facility] [id number] [place] [address] 79118- 0590 Jan, [facility] [address], [place] [address]- 1102 Jan, [facility] [id number] [place] [address] 56020- 8112 Jan, [facility] [id number] [place] [address] 36444- 2186 Jan, [facility] [id number] [place] [address] 98493- 4437 Jan, Abdominal abscess K65.1 and Dental caries K02.9 [facility] [id number] [place] [address] 74110- 4938 Jan, [facility] [address] 61590- 0022 30 Dec, 2014 Diabetes with neurological manifestations, type II or unspecified type, not stated as uncontrolled 250.60 ; Essential hypertension, benign 401.1 ; Concussion 850.9 and Skin texture changes 782.8 [facility] [id number] [place] [address] 29084- 3823 Dec, [facility] [address] 38776- 8045 24 Dec, 2014 [facility] [id number] [place] [address] 78962- 3231 Dec, [facility] [id number] [place] [address] 32466- 0404 Dec, [facility] [id number] [place] [address] 39475- 6929 17 Dec, 2014 Affective disorder 296.90 [facility] [id number] [place] [address] 77381- 7249 14 Dec, 2014 [facility] [id number] [place] [address] 04428- 3618 10 Dec, 2014 Affective disorder 296.90 [facility] [id number] [place] [address] 65543- 9477 04 Dec, 2014 [facility] [id number] [place] [address] 96262- 4281 04 Dec, 2014 [facility] [id number] [place] [address] 57044 2541 Dec, [facility] [address], [place] [address] 2546 Dec, [facility] [id number] [place] [address] 98505 2546 Nov, Affective disorder 296.90 [facility] [id number] [place] [address] 41052 2546 Nov, [facility] [id number] [place] [address] 73516 2546 Nov, Affective disorder 296.90 [facility] [id number] [place] [address] 44886 2546 Nov, Diarrhea 787.91 [facility] [id number] [place] [address] 50093 2546 Nov, [facility] [id number] [place] [address] 28695 2546 Nov, Diarrhea 787.91 [facility] [id number] [place] [address] 41780- 2546 Nov, Diarrhea 787.91 and Hyperlipidemia 272.4 [facility] [id number] [place] [address] 16626 2546 Nov, Diarrhea 787.91 [facility] [address], [place] [address] 2546 Nov, Affective disorder 296.90 [facility] [address], [place] [address] 2546 Nov, Affective disorder 296.90 [facility] [address], [place] [address] 2546 Nov, Affective disorder 296.90 [facility] [address], [place] [address] 2546 Nov, [facility] [address], [place] [address]- 1854 Nov, [facility] [address], [place] [address]- 3022 Nov, [facility] [address], [place] [address]- 9727 Nov, Episodic mood disorder 296.90 [facility] [address], [place] [address]- 6414 Nov, [facility] [address], [place] [address]- 0934 Nov, [facility] [address], [place] [address]- 7303 Nov, [facility] [address], [place] [address]- 6783 Nov, [facility] [address], [place] [address]- 9287 Nov, [facility] [address], [place] [address]- 0273 Nov, Lymphedema 457.1 ; Hyperlipidemia 272.4 ; Essential hypertension, benign 401.1 and Numbness of toes 782.0 [facility] [address], [place] [address]- 7668 Nov, Episodic mood disorder 296.90 [facility] [address], [place] [address]- 3698 Oct, [facility] [address], [place] [address]- 1397 Oct, [facility] [address], [place] [address]- 0062 Oct, [facility] [address], [place] [address] Oct, [facility] [id number], [place] [address] Oct, [facility] [address] [facility] [id number], [place] [address] Oct, 2014 [facility] [address] [facility] [id number] [place] [address] Oct, 2014 [facility] [address] [facility] [id number], [place] [address] Oct, 2014 [facility] [id number], [place] [address] Oct, Episodic mood disorder 296.90 [facility] [address] [facility] [id number] [place] [address] 30 Sep, 2014 [facility] [id number], [place] [address] Sep, [facility] [id number], [place] [address] Sep, [facility] [id number], [place] [address] Sep, [facility] [id number], [place] [address] Sep, [facility] [id number], [place] [address] Sep, Episodic mood disorder 296.90 [facility] [id number], [place] [address] Sep, Unspecified episodic mood disorder 296.90 [facility] [address] [facility] [id number], [place] [address] 18 Sep, 2014 [facility] [address] [facility] [id number], [place] [address] 18 Sep, 2014 [facility] [address] [facility] [id number] [address] [address] 16 Sep, 2014 Episodic mood disorder 296.90 [facility] [id number], [place] [address] Sep, [facility] [address], [place] [address] Sep, [facility] [id number] [place] [address]01 Sep, [facility] [id number] [place] [address]- [address] Sep, Hematemesis 578.0 and Vomiting 787.03 [facility] [id number] [place] [address]- 2931 Sep, Episodic mood disorder 296.90 [facility] [id number] [place] [address]- [address]898 Sep, [facility] [id number] [place] [address]- 2903 Sep, [facility] [id number] [place] [address]- [address] Sep, Diabetes mellitus without mention of complication, type II or unspecified type, not stated as uncontrolled 250.00 and Other chronic pain 338.29 [facility] [id number] [place] [address]- 1583 Sep, Episodic mood disorder 296.90 [facility] [address], [place] [address] Sep, [facility] [id number] [place] [address]- 0130 Sep, Episodic mood disorder 296.90 [facility] [address], [place] [address] Sep, [facility] [id number] [place] [address]- 74[address] August, [facility] [address], [place] [address] August, [facility] [id number] [place] [address]- [address]131 August, Episodic mood disorder 296.90 [facility] [address] [facility] [id number] [address] August, [facility] [id number], [place] [address] August, Unspecified episodic mood disorder 296.90 [facility] [facility] [address] [facility] [id number], [place] [address] August, Vomiting 787.03 [facility] [address] [facility] [id number] [address] August, [facility] [address] [id number], [place] [address] August, [facility] [id number], [place] [address] August, [facility] [address] [id number], [place] [address] August, [facility] [address] [id number], [place] [address] August, [facility] [address] [id number], [place] [address] Jul, [facility] [id number], [place] [address] Jul, [facility] [address] [id number], [place] [address] Jul, [facility] [address] [id number], [place] [address] 2569 Jun, [facility] [address] [id number] [address] Jun, [facility] [address] [id number] [address] Jun, [facility] [address] [id number], [place] [address] Jun, [facility] [place] [facility] [address] [id number] [place] [address]- 5349 Jun, [facility] [place] [facility] [address] [id number] [place] [address]- 6482 Jun, [facility] [place] [facility] [address] [id number] [place] [address]- 0738 Jun, [facility] [place] [facility] [address] [id number] [place] [address]- 7412 Jun, [facility] [place] [facility] [address] [id number] [place] [address]- 9498 Jun, [facility] [place] [facility] [address] [id number] [place] [address]- 9394 Jun, [facility] [place] [facility] [address] [id number] [place] [address]- 9957 Jun, [facility] [place] [facility] [address] [id number] [place] [address]- 1348 Jun, [facility] [place] [facility] [address] [id number] [place] [address]- 3969 Jun, [facility] [place] [facility] [address] [id number] [place] [address]- 4504 Jun, [facility] [place] [facility] [address] [id number] [place] [address]- 7607 Jun, [facility] [place] [facility] [address] [id number] [place] [address]- 4670 Jun, [facility] [place] [facility] [address] [id number] [place] [address]- 6908 Jun, [facility] [place] [facility] [address] [id number] [place] [address]- 8494 Jun, [facility] [place] [facility] [address] [id number] [place] [address]- 2000 Jun, [facility] [place] [facility] [address] [id number] [place] [address]- 3220 21 Jun, 2014 [facility] [place] [facility] [address] [id number] [place] [address]- 3259 21 Jun, 2014 [facility] [place] [facility] [address] [id number] [place] [address]- 1836 20 Jun, 2014 [facility] [place] [facility] [address] [id number] [place] [address]- 8356 20 Jun, 2014 [facility] [place] [facility] [address] [id number] [place] [address]- 7717 20 Jun, 2014 [facility] [place] [facility] [address] [id number] [place] [address]- 8519 20 Jun, 2014 [facility] [place] [facility] [address] [id number] [place] [address]- 2850 19 Jun, 2014 [facility] [place] [facility] [address] [id number] [place] [address]- 5807 19 Jun, 2014 [facility] [place] [facility] [address] [id number] [place] [address]- 8459 18 Jun, 2014 [facility] [place] [facility] [address] [id number] [place] [address]- 5092 18 Jun, 2014 [facility] [place] [facility] [address] [id number] [place] [address]- 3827 17 Jun, 2014 [facility] [place] [facility] [address] [id number] [place] [address]- 0745 17 Jun, 2014 [facility] [place] [facility] [address] [id number] [place] [address]- 8881 16 Jun, 2014 [facility] [place] [facility] [address] [id number] [place] [address]- 9577 16 Jun, 2014 [facility] [place] [facility] [address] [id number] [place] [address]- 3786 16 Jun, 2014 [facility] [place] [facility] [address] [id number] [place] [address]- 8045 16 Jun, 2014 [facility] [place] [facility] [address] [id number] [place] [address]- 4413 16 Jun, 2014 [facility] [place] [facility] [address] [id number] [place] [address]- 1351 16 Jun, 2014 [facility] [place] [facility] [address] [id number] [place] [address]- 1045 Jun, [facility] [place] [facility] [address] [id number] [place] [address]- 1205 Jun, [facility] [place] [facility] [address] [id number] [place] [address]- 1671 Jun, [facility] [place] [facility] [address] [id number] [place] [address]- 7234 Jun, [facility] [place] [facility] [address] [id number] [place] [address]- 0489 Jun, [facility] [place] [facility] [address] [id number] [place] [address]- 2507 Jun, [facility] [place] [facility] [address] [id number] [place] [address]- 0194 Jun, [facility] [place] [facility] [address] [id number] [place] [address]- 2925 Jun, 2014 [facility] [place] [facility] [address] [id number] [place] [address]- 3358 Jun, 2014 [facility] [place] [facility] [address] [id number], [place] [address]- 2125 Jun, [facility] [place] [facility] [address] [id number] [place] [address]- 5408 Jun, [facility] [place] [facility] [address] [id number] [place] [address]- 3626 Jun, 2014 [facility] [place] [facility] [address] [id number] [place] [address]- 8277 Jun, 2014 [facility] [place] [facility] [address] [id number] [place] [address]- 4682 04 Jun, 2014 [facility] [place] [facility] [address] [id number] [place] [address]- 8931 Jun, 2014 [facility] [place] [facility] [address] [facility] [id number] [place] [address]486 Jun, 2014 [facility] [place] [facility] [address] [facility] [id number] [place] [address]- 8438 Jun, 2014 [facility] [place] [facility] [address] [facility] [id number] [place] [address]- 8862 Jun, [facility] [place] [facility] [address] [id number] [place] [address]- 6106 Jun, [facility] [place] [facility] [address] [facility] [id number] [place] [address]- 8897 Jun, [facility] [place] [facility] [address] [facility] [id number] [place] [address]- 8858 May, 2014 [facility] [place] [facility] [address] [facility] [id number] [place] [address]- 8923 May, 2014 [facility] [place] [facility] [address] [facility] [id number] [place] [address]- 4207 May, 2014 [facility] [place] [facility] [address] [facility] [id number] [place] [address]- 5732 May, 2014 [facility] [place] [facility] [address] [facility] [id number] [place] [address]- 6680 May, 2014 [facility] [place] [facility] [address] [facility] [id number] [place] [address]- 4147 May, 2014 [facility] [place] [facility] [address] [facility] [id number] [place] [address]- 8302 May, 2014 [facility] [place] [facility] [address] [facility] [id number] [place] [address]- 7100 May, 2014 [facility] [place] [facility] [address] [id number] [address]- 9661 May, 2014 [facility] [place] [facility] [address] [facility] [id number] [place] [address]- 8401 20 May, 2014 [facility] [place] [facility] [address] [facility] [id number] [place] [address]- 7536 18 May, 2014 [facility] [place] [facility] [address] [facility] [id number] [place] [address]- 9563 18 May, 2014 [facility] [place] [facility] [address] [facility] [id number] [place] [address]- 0301 13 May, 2014 [facility] [place] [facility] [address] [facility] [id number] [place] [address]- 6412 May, 2014 [facility] [place] [facility] [address] [facility] [id number] [place] [address]- 2932 May, 2014 [facility] [place] [facility] [address] [id number] [address]- 0038 May, 2014 [facility] [place] [facility] [address] [facility] [id number] [place] [address]- 0477 May, 2014 [facility] [place] [facility] [address] [facility] [id number] [place] [address]- 6716 May, 2014 [facility] [place] [facility] [address] [facility] [id number] [place] [address]- 7709 May, 2014 [facility] [place] [facility] [address] [facility] [id number] [place] [address]- 1248 May, 2014 [facility] [place] [facility] [address] [facility] [id number], [place] [address]- 254 May, 2014 [facility] [place] [facility] [address] [facility] [id number] [place] [address]- 5340 May, 2014 [facility] [place] [facility] [address] [facility] [id number], [place] [address]- 6830 May, 2014 [facility] [place] [facility] [address] [facility] [id number], [place] [address]- 5610 May, [facility] [place] [facility] [address] [id number] [place] [address]- 5495 May, [facility] [place] [facility] [address] [id number] [place] [address]- 2679 May, [facility] [place] [facility] [address] [id number] [place] [address]- 4946 May, [facility] [place] [facility] [address] [id number] [place] [address]- 2550 Apr, [facility] [place] [facility] [address] [id number] [place] [address]- 2823 Apr, [facility] [place] [facility] [address] [id number] [place] [address]- 7224 Apr, [facility] [place] [facility] [address] [id number] [place] [address]- 2072 Apr, [facility] [place] [facility] [address] [id number] [place] [address]- 8676 Apr, [facility] [place] [facility] [address] [id number] [place] [address]- 6602 Apr, [facility] [place] [facility] [address] [id number] [place] [address]- 3432 Apr, [facility] [place] [facility] [address] [id number] [place] [address]- 6790 Apr, [facility] [place] [facility] [address] [id number], [place] [address]- 7271 Apr, [facility] [place] [facility] [address] [id number] [place] [address]- 5360 Apr, [facility] [place] [facility] [address] [id number] [place] [address]- 2487 Apr, [facility] [place] [facility] [address] [id number] [place] [address]- 6305 Apr, [facility] [place] [facility] [address] [id number] [place] [address]- 1240 Apr, [facility] [address] [id number] [place] [address]- 5604 Apr, [facility] [place] [facility] [address] [id number] [place] [address]- 5864 Apr, [facility] [place] [facility] [address] [id number] [place] [address]- 6472 Apr, [facility] [place] [facility] [address] [id number] [place] [address]- 0860 Apr, [facility] [place] [facility] [address] [id number] [place] [address]- 4569 Apr, [facility] [place] [facility] [address] [id number] [place] [address]- 2509 Apr, [facility] [address] [id number] [place] [address]- 5974 Apr, [facility] [place] [facility] [address] [id number] [place] [address]- 2398 Mar, [facility] [place] [facility] [address] [id number] [place] [address]- 4308 Mar, [facility] [place] [facility] [address] [id number] [place] [address]- 2597 Mar, [facility] [place] [facility] [address] [id number] [place] [address]- 2141 Mar, [facility] [place] [facility] [address] [id number] [place] [address]- 2504 Mar, [facility] [place] [facility] [address] [id number] [place] [address]- 3924 Mar, [facility] [place] [facility] [address] [id number] [place] [address]- 6196 Mar, [facility] [place] [facility] [address] [id number] [place] 4553 Mar, [facility] [place] [facility] [address] [id number] [place] [address]- 6324 15 Mar, 2014 [facility] [place] [facility] [address] [id number] [place] [address]- 1416 Mar, [facility] [place] [facility] [address] [id number] [place] [address]- 2646 Mar, [facility] [place] [facility] [address] [id number] [place] [address]- 6966 Mar, [facility] [place] [facility] [address] [id number] [place] [address]- 0643 Mar, [facility] [place] [facility] [address] [id number] [place] [address]- 8425 Mar, [facility] [place] [facility] [address] [id number] [place] [address]- 6106 Mar, [facility] [place] [facility] [address] [id number] [place] [address]- 6814 Mar, [facility] [place] [facility] [address] [id number] [place] [address]- 0536 Feb, [facility] [place] [facility] [address] [id number] [place] [address]- 7025 Feb, [facility] [place] [facility] [address] [id number] [place] [address]- 4676 Feb, [facility] [place] [facility] [address] [id number] [place] [address]- 3820 Feb, [facility] [place] [facility] [address] [id number] [place] [address]- 9408 Feb, [facility] [place] [facility] [address] [id number] [place] [address]- 5151 Feb, [facility] [place] [facility] [address] [id number] [place] [address]- 8656 Feb, [facility] [place] [facility] [address] [id number] [place] [address]- 7590 18 Feb, 2014 [facility] [place] [facility] [address] [id number] [place] [address]- 7260 18 Feb, 2014 [facility] [place] [facility] [address] [id number] [place] [address]- 0164 17 Feb, 2014 [facility] [place] [facility] [address] [id number] [place] [address]- 8691 17 Feb, 2014 [facility] [place] [facility] [address] [id number] [place] [address]- 6831 17 Feb, 2014 [facility] [place] [facility] [address] [id number] [place] [address]- 9816 17 Feb, 2014 [facility] [place] [facility] [address] [id number] [place] [address]- 4301 Feb, [facility] [place] [facility] [address] [id number] [place] [address]- 0981 Feb, [facility] [place] [facility] [address] [id number], [place] [address]- 5862 Feb, [facility] [place] [facility] [address] [id number] [place] [address]- 2593 Feb, [facility] [place] [facility] [address] [id number] [place] [address]- 3469 Feb, [facility] [place] [facility] [address] [id number], [place] [address]- 7469 Feb, [facility] [place] [facility] [address] [id number], [place] [address]- 3519 Feb, [facility] [place] [facility] [address] [id number] [place] [address]- 1974 Feb, [facility] [place] [facility] [address] [id number], [place] [address]- 1166 Jan, [facility] [place] [facility] [address] [id number], [place] [address]- 5290 Jan, [facility] [place] [facility] [address] [id number] [place] [address]- 3568 30 Jan, 2013 [facility] [place] [facility] [address] [id number] [place] [address]- 8876 30 Jan, 2013 [facility] [place] [facility] [address] [id number] [place] [address]- 5978 24 Jan, 2014 [facility] [place] [facility] [address] [id number] [place] [address]- 5246 24 Jan, 2014 [facility] [place] [facility] [address] [id number] [place] [address]- 2089 Jan, [facility] [place] [facility] [address] [id number] [place] [address]- 0485 Jan, [facility] [place] [facility] [address] [id number] [place] [address]- 0884 Jan, [facility] [place] [facility] [address] [id number] [place] [address]- 4491 Jan, [facility] [place] [facility] [address] [id number] [place] [address]- 8575 17 Jan, 2014 [facility] [place] [facility] [address] [id number] [place] [address]- 5422 17 Jan, 2013 [facility] [place] [facility] [address] [id number] [place] [address]- 7523 17 Jan, 2014 [facility] [place] [facility] [address] [id number] [place] [address]- 2192 17 Jan, 2013 [facility] [place] [facility] [address] [id number] [place] [address]- 9977 15 Jan, 2014 [facility] [place] [facility] [address] [id number] [place] [address]- 2286 15 Jan, 2014 [facility] [place] [facility] [address] [id number] [place] [address]- 0457 14 Jan, 2014 [facility] [place] [facility] [address] [id number] [place] [address]- 0853 14 Jan, 2014 [facility] [place] [facility] [address] [id number] [place] [address]- 0403 13 Jan, 2014 [facility] [place] [facility] [address] [id number] [place] [address]- 3965 Jan, [facility] [place] [facility] [address] [id number] [place] [address]- 5952 Jan, [facility] [place] [facility] [address] [id number] [place] [address]- 3981 Jan, [facility] [place] [facility] [address] [id number] [place] [address]- 0766 Jan, [facility] [place] [facility] [address] [id number] [place] [address]- 9607 Jan, [facility] [place] [facility] [address] [id number] [place] [address]- 2707 Jan, [facility] [place] [facility] [address] [id number] [place] [address]- 0474 25 Dec, 2013 [facility] [place] [facility] [address] [id number] [place] [address]- 0874 25 Dec, 2013 [facility] [place] [facility] [address] [id number] [place] [address]- 5093 23 Dec, 2013 [facility] [place] [facility] [address] [id number] [place] [address]- 7717 23 Dec, 2013 [facility] [place] [facility] [address] [id number], [place] [address]- 5037 19 Sep, 2013 [facility] [place] [facility] [address] [id number] [place] [address]- 4673 19 Dec, 2013 [facility] [place] [facility] [address] [id number] [place] [address]- 3439 17 Dec, 2013 [facility] [place] [facility] [address] [id number] [place] [address]- 1909 17 Dec, 2013 [facility] [place] [facility] [address] [id number] [place] [address]- 7601 Dec, 2013 [facility] [place] [facility] [address] [id number] [place] [address] 09 Sep, 2013 [facility] [place] [facility] [address] [id number] [place] [address] Dec, 2013 [facility] [place] [facility] [address] [id number] [place] [address] Dec, 2013 [facility] [place] [facility] [address] [id number] [place] [address] Dec, 2013 [facility] [place] [facility] [address] [id number] [place] [address] Dec, 2013 [facility] [place] [facility] [address] [id number] [place] [address] Dec, 2013 [facility] [place] [facility] [address] [id number] [place] [address] Dec, 2013 [facility] [place] [facility] [address] [id number] [place] [address]- [address] Dec, 2013 [facility] [place] [facility] [address] [id number] [place] [address] Dec, 2013 [facility] [place] [facility] [address] [id number] [place] [address] Nov, [facility] [place] [facility] [address] [id number] [place] [address] 85[address] Nov, [facility] [place] [facility] [address] [id number] [place] [address] Nov, [facility] [place] [facility] [address] [id number] [place] [address] 67[address] Nov, [facility] [place] [facility] [address] [id number] [place] [address]648 Nov, [facility] [place] [facility] [address] [id number] [place] [address]- [address] Nov, [facility] [place] [facility] [address] [id number] [place] [address] Nov, [facility] [place] [facility] [address] [id number] [place] [address]- [address] Nov, [facility] [place] [facility] [address] [id number] [place] [address] Nov, [facility] [place] [facility] [address] [id number] [place] [address] Nov, [facility] [place] [facility] [address] [id number] [place] [address] Nov, [facility] [place] [facility] [address] [id number] [place] [address] 99[address] Nov, [facility] [place] [facility] [address] [id number] [place] [address] Oct, [facility] [place] [facility] [address] [id number] [place] [address] Oct, [facility] [place] [facility] [address] [id number] [place] [address] Oct, [facility] [place] [facility] [address] [id number] [place] [address] 4059 Oct, [facility] [place] [facility] [address] [id number] [place] [address] 57[address] Oct, [facility] [place] [facility] [address] [id number] [place] [address] 0820 Oct, [facility] [place] [facility] [address] [id number] [place] [address] Oct, [facility] [place] [facility] [address] [id number] [place] [address] 6[address] Oct, [facility] [place] [facility] [address] [id number] [place] [address] 7671 Oct, [facility] [place] [facility] [address] [id number] [place] [address] Oct, [facility] [place] [facility] [address] [id number] [place] [address]- 1187 16 Oct, 2013 [facility] [place] [facility] [address] [id number] [place] [address]498 16 Oct, 2013 [facility] [place] [facility] [address] [id number] [place] [address] 4163 14 Oct, 2013 [facility] [place] [facility] [address] [id number] [place] [address] 14 Oct, 2013 [facility] [place] [facility] [address] [id number] [place] [address]761 Oct, [facility] [place] [facility] [address] [id number] [place] [address] 4326 Oct, [facility] [place] [facility] [address] [id number] [place] [address] 72[address] Oct, [facility] [place] [facility] [address] [id number] [place] [address]- [address] 27 Sep, 2013 [facility] [place] [facility] [address] [id number] [place] [address] 27 Sep, 2013 [facility] [place] [facility] [address] [id number] [place] [address]- 8120 Sep, [facility] [place] [facility] [address] [id number] [place] [address]- 1560 Sep, [facility] [place] [facility] [address] [id number] [place] [address]- 9635 18 Sep, 2013 [facility] [place] [facility] [address] [id number] [place] [address]- 0186 18 Sep, 2013 [facility] [place] [facility] [address] [id number] [place] [address]- 8740 17 Sep, 2013 [facility] [place] [facility] [address] [id number] [place] [address]- 4630 17 Sep, 2013 [facility] [place] [facility] [address] [id number] [place] [address]- 45[address] Sep, [facility] [place] [facility] [address] [id number] [place] [address]- 5214 Sep, [facility] [place] [facility] [address] [id number] [place] [address]- 9184 Sep, [facility] [place] [facility] [address] [id number] [place] [address]- 0645 Sep, [facility] [place] [facility] [address] [id number] [place] [address]- 8896 Sep, [facility] [place] [facility] [address] [id number] [place] [address]- 2482 Sep, [facility] [place] [facility] [address] [id number] [place] [address]- 7050 Sep, [facility] [place] [facility] [address] [id number] [place] [address]- 7548 Sep, [facility] [place] [facility] [address] [id number] [place] [address]- 6667 Sep, [facility] [place] [facility] [address] [id number] [place] [address]- 2586 Sep, [facility] [place] [facility] [address] [id number] [place] [address]- 6913 Sep, [facility] [place] [facility] [address] [id number] [place] [address]- 8608 Sep, [facility] [place] [facility] [address] [id number] [place] [address]- 0610 Sep, [facility] [place] [facility] [address] [id number] [place] [address]- 0887 Sep, [facility] [place] [facility] [address] [id number] [place] [address]- 4415 August, [facility] [place] [facility] [address] [id number] [place] [address]- 7179 August, [facility] [place] [facility] [address] [id number] [place] [address]- 2890 August, [facility] [place] [facility] [address] [id number] [place] [address]- 8870 August, [facility] [place] [facility] [address] [id number] [place] [address]- 3668 August, [facility] [place] [facility] [address] [id number] [place] [address]- 0388 August, [facility] [place] [facility] [address] [id number] [place] [address]- 2070 August, [facility] [place] [facility] [address] [id number] [place] [address]- 4597 August, [facility] [facility] [place] [facility] [address] [id number] [place] [address] August, [facility] [place] [facility] [address] [id number] [place] [address] August, [facility] [place] [facility] [address] [id number] [place] [address] August, [facility] [place] [facility] [address] [id number] [place] [address] Jul, [facility] [place] [facility] [address] [id number] [place] [address] Jul, [facility] [place] [facility] [address] [id number] [place] [address] 7710 Jul, [facility] [place] [facility] [address] [id number] [place] [address] 26[address] Jul, [facility] [place] [facility] [address] [id number] [place] [address] Jul, [facility] [place] [facility] [address] [id number] [place] [address] Jul, [facility] [place] [facility] [address] [id number] [place] [address] 1673 Jul, [facility] [place] [facility] [address] [id number] [place] [address] 2005 Jul, [facility] [place] [facility] [address] [id number] [place] [address]906 Jul, [facility] [place] [facility] [address] [id number] [place] [address]- 3351 Jul, [facility] [place] [facility] [address] [id number] [place] [address]- 8763 16 Jul, 2013 [facility] [place] [facility] [address] [id number] [place] [address]- 0826 Jul, [facility] [place] [facility] [address] [id number] [place] [address]- 5204 Jul, [facility] [place] [facility] [address] [id number] [place] [address]- 8740 Jul, [facility] [place] [facility] [address] [id number] [place] [address]- 4674 Jul, [facility] [place] [facility] [address] [id number] [place] [address]- 9007 Jul, [facility] [place] [facility] [address] [id number] [place] [address]- 4671 Jul, [facility] [place] [facility] [address] [id number] [place] [address]- 1855 Jul, [facility] [place] [facility] [address] [id number] [place] [address]- 7553 Jul, [facility] [place] [facility] [address] [id number] [place] [address]- 0344 Jul, [facility] [place] [facility] [address] [id number] [place] [address]- 8706 Jul, [facility] [place] [facility] [address] [id number] [place] [address]- 8733 Jul, [facility] [place] [facility] [address] [id number] [place] [address]- 0066 Jul, [facility] [place] [facility] [address] [id number] [place] [address]- 2696 Jun, [facility] [place] [facility] [address] [id number] [place] [address]- 5180 Jun, [facility] [place] [facility] [address] [id number] [place] [address]- 4381 Jun, [facility] [place] [facility] [address] [id number] [place] [address]- 5928 Jun, [facility] [place] [facility] [address] [id number] [place] [address]- 9583 Jun, [facility] [place] [facility] [address] [id number] [place] [address]- 7381 Jun, [facility] [place] [facility] [address] [id number] [place] [address]- 4777 Jun, [facility] [place] [facility] [address] [id number] [place] [address]- 2577 Jun, [facility] [place] [facility] [address] [id number] [place] [address]- 9354 Jun, [facility] [place] [facility] [address] [id number] [place] [address]- 8706 Jun, [facility] [place] [facility] [address] [id number] [place] [address]- 2649 Jun, [facility] [place] [facility] [address] [id number] [place] [address]- 2849 Jun, [facility] [place] [facility] [address] [id number] [place] [address]- 6978 May, [facility] [place] [facility] [address] [id number] [place] [address]- 7135 May, [facility] [place] [facility] [address] [id number] [place] [address]- 5635 Apr, [facility] [address] [id number] [place] [address]- 1331 Apr, [facility] [place] [facility] [address] [id number] [place] [address]- 5875 Apr, [facility] [place] [facility] [address] [id number] [place] [address]- 9497 Apr, [facility] [place] [facility] [address] [id number] [place] [address]- 6341 Apr, [facility] [place] [facility] [address] [id number] [place] [address]- 8478 Apr, [facility] [place] [facility] [address] [id number] [place] [address]- 6007 Apr, [facility] [place] [facility] [address] [id number] [place] [address]- 0160 Apr, [facility] [place] [facility] [address] [id number] [place] [address]- 4774 Apr, [facility] [place] [facility] [address] [id number] [place] [address]- 3456 Apr, [facility] [place] [facility] [address] [id number] [place] [address]- 5852 Apr, [facility] [place] [facility] [address] [id number] [place] [address]- 8783 16 Mar, 2013 [facility] [place] [facility] [address] [id number], [place] [address]- [address] Mar, [facility] [place] [facility] [address] [id number] [place] [address]- 0541 Mar, [facility] [place] [facility] [address] [id number] [place] [address]- 6578 Mar, [facility] [place] [facility] [address] [id number], [place] [address]- 6266 Feb, [facility] [place] [facility] [address] [id number], [place] [address] 5197 Feb, [facility] [place] [facility] [address] [id number] [place] [address]- 4795 Feb, [facility] [place] [facility] [address] [id number] [place] [address]- 0053 Feb, [facility] [place] [facility] [address] [facility] [id number] [place] [address]- 8459 Feb, [facility] [place] [facility] [address] [id number] [place] [address]- 8810 Feb, [facility] [place] [facility] [address] [id number] [place] [address]- 2372 Feb, [facility] [place] [facility] [address] [id number] [place] [address]- 2797 Feb, [facility] [place] [facility] [address] [facility] [id number], [place] [address]- 2787 Feb, [facility] [place] [facility] [address] [id number] [place] [address]- 4202 Feb, [facility] [place] [facility] [address] [facility] [id number], [place] [address]- 5411 Feb, [facility] [place] [facility] [address] [facility] [id number], [place] [address]- 4477 Jan, [facility] [place] [facility] [address] [id number], [place] [address]- 1808 Jan, [facility] [place] [facility] [address] [id number], [place] [address]- 8920 Jan, [facility] [place] [facility] [address] [id number], [place] [address]- 9489 Jan, [facility] [place] [facility] [address] [facility] [id number], [place] [address]- 9497 Jan, [facility] [place] [facility] [address] [facility] [id number], [place] [address]- 4526 Jan, [facility] [place] [facility] [address] [id number] [place] [address]- 1881 03 Jan, 2013 [facility] [place] [facility] [address] [id number] [place] [address]- 4085 02 Jan, 2013 [facility] [place] [facility] [address] [id number] [place] [address]- 7446 30 Dec, 2012 [facility] [place] [facility] [address] [id number] [place] [address]- 6546 25 Dec, 2012 [facility] [place] [facility] [address] [id number] [place] [address]- 2545 18 Dec, 2012 [facility] [place] [facility] [address] [id number] [place] [address]- 0787 17 Dec, 2012 [facility] [place] [facility] [address] [id number] [place] [address]- 4484 17 Dec, 2012 [facility] [place] [facility] [address] [id number] [place] [address]- 5134 16 Dec, 2012 [facility] [place] [facility] [address] [id number] [place] [address]- 6794 13 Dec, 2012 [facility] [place] [facility] [address] [id number] [place] [address]- 9194 11 Dec, 2012 [facility] [place] [facility] [address] [id number] [place] [address]- 4882 05 Dec, 2012 [facility] [place] [facility] [address] [id number] [place] [address]- 0199 04 Dec, 2012 [facility] [place] [facility] [address] [id number] [place] [address] 2541 30 Nov, 2012 [facility] [place] [facility] [address] [id number] [place] [address]- 8460 29 Nov, 2012 [facility] [place] [facility] [address] [id number] [place] [address]- 9965 Nov, [facility] [place] [facility] [address] [id number] [place] [address]- 0691 16 Nov, 2012 [facility] [place] [facility] [address] [id number] [place] [address]- 6885 14 Nov, 2012 [facility] [place] [facility] [address] [id number] [place] [address]- 2163 12 Nov, 2012 [facility] [place] [facility] [address] [id number] [place] [address]- 8708 05 Nov, 2012 [facility] [place] [facility] [address] [id number] [place] [address]- 2535 29 Oct, 2012 [facility] [place] [facility] [address] [id number] [place] [address]- 0924 Oct, [facility] [place] [facility] [address] [id number] [place] [address]- 7855 24 Oct, 2012 [facility] [place] [facility] [address] [id number] [place] [address]- 2767 Oct, [facility] [place] [facility] [address] [id number] [place] [address]- 6634 15 Oct, 2012 [facility] [place] [facility] [address] [id number] [place] [address]- 3165 Oct, [facility] [place] [facility] [address] [id number] [place] [address]- 3201 28 Sep, 2012 [facility] [place] [facility] [address] [id number] [place] [address]- 0303 28 Sep, 2012 [facility] [place] [facility] [address] [id number] [place] [address]- 1913 27 Sep, 2012 [facility] [place] [facility] [address] [id number] [place] [address]- 7351 14 Sep, 2012 [facility] [place] [facility] [address] [id number] [place] [address]- 1731 13 Sep, 2012 [facility] [place] [facility] [address] [id number] [place] [address]- 6105 10 Sep, 2012 [facility] [place] [facility] [address] [id number] [place] [address]- 3321 07 Sep, 2012 [facility] [address] [id number] [place] [address]- 8464 Sep, [facility] [address] [id number] [place] [address]- 8597 Sep, [facility] [address] [id number] [place] [address]- 5311 August, [facility] [address] [id number] [place] [address]- 3952 August, [facility] [address] [id number] [place] [address]- 3541 August, [facility] [address] [id number] [place] [address]- 6141 August, [facility] [address] [id number] [place] [address]- 9365 August, [facility] [address] [id number] [place] [address]- 9115 August, [facility] [address] [id number] [place] [address]- 8750 August, [facility] [address] [id number] [place] [address]- 0691 August, [facility] [address] [id number] [place] [address]- 8094 Jul, [facility] [address] [id number] [place] [address]- 3225 Jul, [facility] [address] [place] [id number] Jul [facility] [address] [id number] [place] [address]- 3603 Jun, [facility] [address] [id number] [place] [address]- 4236 Jun, [facility] [address] [id number] [place] [address]- 6636 Jun, [facility] [address] [id number] [place] [address]- 3125 Jun, [facility] [place] [facility] [address] [id number] [place] [address] 2546 Jun, [facility] [address] [id number] [place] [address]- 4099 Jun, [facility] [address] [id number] [place] [address]- 6940 May, [facility] [address] [id number] [place] [address]- 4526 May, [facility] [address] [id number] [place] [address]- 8248 May, [facility] [address] [id number] [place] [address]- 0020 May, [facility] [address] [id number] [place] [address]- 4924 May, [facility] [address] [id number] [place] [address]- 7719 Apr, [facility] [address] [id number] [place] [address]- 0350 Apr, [facility] [address] [id number] [place] [address]- 0707 Apr, [facility] [address] [id number] [place] [address] 2544 Apr, [facility] [place] [facility] [address] [id number] [place] [address]- 1926 Apr, [facility] [place] [facility] [address] [id number] [place] [address]- 6176 Apr, [facility] [place] [facility] [address] [id number] [place] [address]- 1736 Mar, [facility] [place] [facility] [address] [id number] [place] [address]- 1790 Mar, [facility] [place] [facility] [address] [id number] [place] [address]- 6796 Mar, [facility] [place] [facility] [address] [id number] [place] [address]- 3303 Mar, [facility] [place] [facility] [address] [id number] [place] [address]- 2547 Mar, [facility] [place] [facility] [address] [id number] [place] [address]- 4781 Mar, [facility] [place] [facility] [address] [id number] [place] [address]- 1427 Mar, [facility] [place] [facility] [address] [id number] [place] [address]- 2415 Mar, [facility] [place] [facility] [address] [id number] [place] [address]- 1239 Mar, [facility] [place] [facility] [address] [id number] [place] [address]- 9615 Mar, [facility] [place] [facility] [address] [id number] [place] [address]- 6007 Mar, [facility] [place] [facility] [address] [id number] [place] [address]- 7129 Feb, [facility] [place] [facility] [address] [id number], [place] [address]- 2785 Feb, [facility] [place] [facility] [address] [id number] [place] [address]- 3899 Feb, [facility] [place] [facility] [address] [id number] [place] [address]- 0879 Feb, [facility] [place] [facility] [address] [id number] [place] [address]- 1633 Feb, [facility] [place] [facility] [address] [id number] [place] [address]- 7221 16 Feb, 2012 [facility] [place] [facility] [address] [id number] [place] [address]- 3144 16 Feb, 2012 [facility] [place] [facility] [address] [id number] [place] [address]- 3416 Feb, [facility] [place] [facility] [address] [id number] [place] [address]- 4736 Feb, [facility] [place] [facility] [address] [id number] [place] [address]- 2210 Feb, [facility] [place] [facility] [address] [id number] [place] [address]- 3954 Feb, [facility] [place] [facility] [address] [id number] [place] [address]- 8285 Jan, [facility] [place] [facility] [address] [facility] [id number] [place] 5168 Jan, [facility] [place] [facility] [address] [id number] [place] [address]- 1881 Jan, [facility] [place] [facility] [address] [id number] [place] [address]- 3960 Jan, [facility] [place] [facility] [address] [facility] [id number] [place] [address]- 9978 Jan, [facility] [place] [facility] [address] [id number] [place] [address]- 3335 19 Jan, 2012 [facility] [place] [facility] [address] [id number], [place] [address]- 6236 09 Jan, 2012 [facility] [place] [facility] [address] [id number] [place] [address]- 5382 24 Sep2011 [facility] [place] [facility] [address] [facility] [id number] [place] [address]- 2206 17 Sep2011 [facility] [place] [facility] [address] [id number], [place] [address]- 6921 13 Dec, 2011 [facility] [place] [facility] [address] [id number] [place] [address]- 4987 Dec, [facility] [place] [facility] [address] [id number] [place] [address]- 1487 Nov, [facility] [place] [facility] [address] [id number] [place] [address]- 6368 Nov, [facility] [place] [facility] [address] [id number] [place] [address]- 3753 Nov, [facility] [place] [facility] [address] [id number] [place] [address]- 2808 Nov, [facility] [place] [facility] [address] [id number] [place] [address]- 2727 Nov, [facility] [place] [facility] [address] [id number] [place] [address]- 0740 Nov, [facility] [place] [facility] [address] [id number] [place] [address]- 5326 Nov, [facility] [place] [facility] [address] [id number] [place] [address]- 0831 Nov, [facility] [place] [facility] [address] [id number] [place] [address]- 1491 Nov, [facility] [place] [facility] [address] [id number] [place] [address]- 3309 Nov, [facility] [place] [facility] [address] [id number] [place] [address]- 4928 Nov, [facility] [place] [facility] [address] [id number] [place] [address]- 1944 Nov, [facility] [place] [facility] [address] [id number] [place] [address]- 4211 Nov, [facility] [place] [facility] [address] [id number] [place] [address]- 1083 Oct, [facility] [place] [facility] [address] [id number] [place] [address]- 3266 Oct, [facility] [place] [facility] [address] [id number] [place] [address]- 1139 Oct, [facility] [place] [facility] [address] [id number] [place] [address]- 9820 Oct, [facility] [place] [facility] [address] [id number] [place] [address]- 8766 Oct, [facility] [place] [facility] [address] [id number] [place] [address]- 6906 Oct, [facility] [place] [facility] [address] [id number] [place] [address]- 6650 Oct, [facility] [place] [facility] [address] [id number] [place] [address]- 5936 Oct, [facility] [place] [facility] [address] [id number] [place] [address] Oct, [facility] [place] [facility] [address] [id number] [place] [address] Sep, [facility] [place] [facility] [address] [id number] [place] [address] Sep, [facility] [place] [facility] [address] [id number] [place] [address] Sep, [facility] [place] [facility] [address] [id number] [place] [address] Sep, [facility] [place] [facility] [address] [id number] [place] [address] Sep, [facility] [place] [facility] [address] [id number] [place] [address] Sep, [facility] [place] [facility] [address] [id number] [place] [address] Sep, [facility] [place] [facility] [address] [id number] [place] [address] Sep, [facility] [place] [facility] [address] [id number] August, [facility] [address] [place] [address] August, [facility] [id number], [place] [address] August, [facility] [id number] [address] August, [facility] [id number] [place] [address] August, [facility] [id number] [place] [address] August, [facility] [address], [place] [address] August, [facility] [address], [place] [address] August, [facility] [address], [place] [address] August, [facility] [address], [place] [address] August, [facility] [address], [place] [address] August, [facility] [id number] [place] [address] August, [facility] [id number] [address] Oct, IMMUNIZATIONS No Known Immunizations SOCIAL HISTORY Never Assessed REASON FOR VISIT Requests return call PLAN OF CARE VITAL SIGNS MEDICATIONS Medication Instructions Dosage Frequency Start Date End Date Duration Status Tylenol 325 MG Orally every 6 hrs 2 tablets as needed Oct, Active RESULTS No Results PROCEDURES No [...] Hospitalization History suicidal ideations-[place] 12/28 Hospitalization History hypoxia--[facility] 02/13/2016 Hospitalization History shortness of breath at june 2016 Hospitalization History Shortness of breath at august 2016 Hospitalization History SOB, chest pain at 12/2016
--- OUTSIDE RECORDS SUMMARY | 2018-02-11 13:01 | XMS REPORT ---
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 Mar, [facility] [address] [place] [address] [id number] Mar, Dental examination Z01.20 [facility] [id number] [place] [address] 75835- 7330 Mar, Chronic diarrhea K52.9 ; Intractable vomiting with nausea, vomiting of unspecified type R11.2 ; Cellulitis, unspecified cellulitis site L03.90 ; Type 2 diabetes mellitus with diabetic polyneuropathy E11.42 and Postinflammatory hyperpigmentation L81.0 [place] [id number] [place] [address] 21894- 5581 Mar, Unspecified mood [affective] disorder F39 [facility] [id number] [place] [address] 99093- 3135 Mar, Unspecified mood [affective] disorder F39 [facility] [address] [facility] [id number] [address]- 8039 Mar, [facility] [address] [facility] [id number] [address]- 4065 Mar, [facility] [address] [facility] [id number] [place] [address]- 4250 Mar, [facility] [address] [facility] [id number] [place] [address] 34332- 6125 Mar, [facility] [address] [facility] [id number] [address]- 1161 Mar, [facility] [address] [facility] [id number] [place] [address] 79452- 3980 Mar, [facility] [id number] [place] [address] 64523- 5960 Feb, Unspecified mood [affective] disorder F39 [facility] [address] [id number] [address]- 7795 Feb, [facility] [id number] [place] [address] 44253- 4173 Feb, [facility] [address] [address]- 9652 Jan, Unspecified mood [affective] disorder F39 [address] [id number] [id number] Jan, Encounter for dental examination Z01.20 [facility] [address] [id number] [address]- 1462 Jan, [facility] [address] [address]- 3736 Jan, [facility] [address] [address]- 7109 Jan, [facility] [address] [address]- 6032 Jan, [facility] [id number] [place] [address] 63350- 5574 Jan, [facility] [id number] [place] [address] 28038- 7073 Jan, Abdominal abscess K65.1 and Dental caries K02.9 [facility] [id number] [place] [address] 74722- 2640 Jan, [facility] [id number] [place] [address] 69421- 5890 30 Dec, 2014 Diabetes with neurological manifestations, type II or unspecified type, not stated as uncontrolled 250.60 ; Essential hypertension, benign 401.1 ; Concussion 850.9 and Skin texture changes 782.8 [facility] [id number] [place] [address] 50226- 5489 Dec, [facility] [address] 78098- 2375 24 Dec, 2014 [facility] [id number] [place] [address] 49064- 7416 Dec, [facility] [id number] [place] [address] 22344- 4353 Dec, [facility] [id number] [place] [address] 10725- 6072 17 Dec, 2014 Affective disorder 296.90 [facility] [id number] [place] [address] 12276- 5129 14 Dec, 2014 [facility] [id number] [place] [address] 91536- 9826 10 Dec, 2014 Affective disorder 296.90 [facility] [id number] [place] [address] 79896- 3022 04 Dec, 2014 [facility] [id number] [place] [address] 93643- 6238 04 Dec, 2014 [facility] [address] [place] [address]- 0530 Dec, [facility] [id number] [place] [address] 03693 2546 Dec, [facility] [id number] [place] [address] 52934 2546 Nov, Affective disorder 296.90 [facility] [id number] [place] [address] 85054 2546 Nov, [facility] [id number] [place] [address] 17062 2546 Nov, Affective disorder 296.90 [facility] [id number] [place] [address] 69006 2546 Nov, Diarrhea 787.91 [facility] [id number] [place] [address] 63027 2546 Nov, [facility] [id number] [place] [address] 16315 2540 Nov, Diarrhea 787.91 [facility] [id number] [place] [address] 71672 2546 Nov, Diarrhea 787.91 and Hyperlipidemia 272.4 [facility] [id number] [place] [address] 17347 2546 Nov, Diarrhea 787.91 [facility] [id number] [place] [address] 17413 2546 Nov, Affective disorder 296.90 [facility] [id number] [place] [address] [id number] 2546 Nov, Affective disorder 296.90 [facility] [id number] [place] [address] 33970 2546 Nov, Affective disorder 296.90 [facility] [id number] [address] 254 Nov, [facility] [id number] [place] [id number]- 1855 Nov, [facility] [id number] [address] Nov, [facility] [id number] [address] Nov, Episodic mood disorder 296.90 [facility] [id number] [address] Nov, [facility] [id number] [place] [address]248- 2468 Nov, [facility] [id number] [place] [address]- 4428 Nov, [facility] [id number] [address] Nov, [facility] [id number] [place] [address]231- 5558 Nov, [facility] [id number] [address] Nov, Lymphedema 457.1 ; Hyperlipidemia 272.4 ; Essential hypertension, benign 401.1 and Numbness of toes 782.0 [facility] [id number] [address] Nov, Episodic mood disorder 296.90 [facility] [id number] [address] Oct, [facility] [id number] [address] Oct, [facility] [id number] [address] Oct, [facility] [id number] [address] Oct, [facility] [id number] [address] Oct, [facility] [address] [facility] [id number] [address] Oct, 2014 [facility] [address] [facility] [id number] [place] [address] Oct, 2014 [facility] [address] [facility] [id number] [address] Oct, 2014 [facility] [address] [facility] [id number] [place] [address] Oct, Episodic mood disorder 296.90 [facility] [address] [facility] [id number] [place] [address] 30 Sep, 2014 [facility] [address] [facility] [id number] [address] Sep, [facility] [address] [facility] [id number] [address] Sep, [facility] [address] [facility] [id number] [address] Sep, [facility] [address] [facility] [id number] [address] Sep, [facility] [address] [facility] [id number] [address] 18[address] Sep, Episodic mood disorder 296.90 [facility] [address] [id number] [address] 1548 Sep, Unspecified episodic mood disorder 296.90 [facility] [address] [facility] [id number] [address] 39[address] Sep, [facility] [address] [facility] [id number] [place] [address] 4307 Sep, [facility] [address] [facility] [id number] [address] 8866 16 Sep, 2014 Episodic mood disorder 296.90 [facility] [address] [id number] [address] 6877 Sep, [facility] [id number] [address] 389[address] Sep, [facility] [id number] [place] [address] 68946- 6841 Sep, [facility] [id number] [place] [address] 02003- 3558 Sep, Hematemesis 578.0 and Vomiting 787.03 [facility] [id number] [place] [address] 43841- 7386 Sep, Episodic mood disorder 296.90 [facility] [id number] [place] [address] 55353- 3480 Sep, [facility] [id number] [place] [address] 97706- 7223 Sep, [facility] [id number] [place] [address] 96906- 7319 Sep, Diabetes mellitus without mention of complication, type II or unspecified type, not stated as uncontrolled 250.00 and Other chronic pain 338.29 [facility] [id number] [place] [address] 57489- 3585 Sep, Episodic mood disorder 296.90 [facility] [id number] [place] [address] 53086- 8552 Sep, [facility] [id number] [place] [address] 25712- 0798 Sep, Episodic mood disorder 296.90 [facility] [id number] [address] 1189 Sep, [facility] [id number] [place] [address] 27944- 6028 August, [facility] [id number] [place] [address] 99456- 3067 August, [facility] [id number] [place] [address] [place] [address]- 4242 August, Episodic mood disorder 296.90 [facility] [address] [id number] [address] 1642 August, [facility] [id number] [address] 3781 August, Unspecified episodic mood disorder 296.90 [facility] [id number] [address] 6225 August, Vomiting 787.03 [facility] [address] [id number] [address] August, [facility] [id number] [address]- 4848 August, [facility] [id number] [address]- 2368 August, [facility] [id number] [address]- 5284 August, [facility] [id number] [address]- 4980 August, [facility] [id number] [address]- 9168 Jul, [facility] [id number] [address]- 3232 Jul, [facility] [id number] [address]- 7122 Jul, [facility] [place] [facility] [address] [id number] [address]- 2102 Jun, [facility] [address] [id number] [address] 7547 Jun, [facility] [place] [facility] [address] [id number] 9321 Jun, [facility] [address] [id number] [address]- 7574 Jun, [facility] [place] [facility] [address] [id number] [place] [address]- 7763 Jun, [facility] [place] [facility] [address] [id number] [place] [address]- 2128 Jun, [facility] [place] [facility] [address] [id number] [place] [address]- 1541 Jun, [facility] [place] [facility] [address] [id number] [place] [address]- 3304 Jun, [facility] [place] [facility] [address] [id number] [place] [address]- 3410 Jun, [facility] [place] [facility] [address] [id number] [place] [address]- 8350 Jun, [facility] [place] [facility] [address] [id number] [place] [address]- 2348 Jun, [facility] [place] [facility] [address] [id number] [place] [address]- 5691 Jun, [facility] [place] [facility] [address] [id number] [place] [address]- 8333 Jun, [facility] [place] [facility] [address] [id number] [place] [address]- 7600 Jun, [facility] [place] [facility] [address] [id number] [place] [address]- 0349 Jun, [facility] [place] [facility] [address] [id number] [place] [address]- 0644 Jun, [facility] [place] [facility] [address] [id number] [place] [address]- 2957 Jun, [facility] [place] [facility] [address] [id number] [place] [address]- 0817 Jun, [facility] [place] [facility] [address] [id number] [place] [address]- 9892 Jun, [facility] [place] [facility] [address] [id number] [place] [address]- 7740 21 Jun, 2014 [facility] [place] [facility] [address] [id number] [place] [address]- 7266 21 Jun, 2014 [facility] [place] [facility] [address] [id number] [place] [address]- 9646 20 Jun, 2014 [facility] [place] [facility] [address] [id number] [place] [address]- 1466 20 Jun, 2014 [facility] [place] [facility] [address] [id number] [place] [address]- 2127 20 Jun, 2014 [facility] [place] [facility] [address] [id number] [place] [address]- 2490 20 Jun, 2014 [facility] [place] [facility] [address] [id number] [place] [address]- 2140 19 Jun, 2014 [facility] [place] [facility] [address] [id number] [place] [address]- 4066 19 Jun, 2014 [facility] [place] [facility] [address] [id number] [place] [address]- 2379 18 Jun, 2014 [facility] [place] [facility] [address] [id number] [place] [address]- 1560 18 Jun, 2014 [facility] [place] [facility] [address] [id number] [place] [address]- 1724 17 Jun, 2014 [facility] [place] [facility] [address] [id number] [place] [address]- 3953 17 Jun, 2014 [facility] [place] [facility] [address] [id number] [place] [address]- 6925 16 Jun, 2014 [facility] [place] [facility] [address] [id number] [place] [address]- 1876 16 Jun, 2014 [facility] [place] [facility] [address] [id number] [place] [address]- 6416 16 Jun, 2014 [facility] [place] [facility] [address] [id number] [place] [address]- 8417 16 Jun, 2014 [facility] [place] [facility] [address] [id number] [place] [address]- 6031 16 Jun, 2014 [facility] [place] [facility] [address] [id number] [place] [address]- 3966 16 Jun, 2014 [facility] [place] [facility] [address] [id number] [place] [address]- 7101 Jun, [facility] [place] [facility] [address] [id number] [place] [address]- 9354 Jun, [facility] [place] [facility] [address] [id number] [place] [address]- 9595 Jun, [facility] [place] [facility] [address] [id number] [place] [address]- 6032 Jun, [facility] [place] [facility] [address] [id number] [place] [address]- 4528 Jun, [facility] [place] [facility] [address] [id number] [place] [address]- 7623 Jun, [facility] [place] [facility] [address] [id number] [place] [address]- 9816 Jun, [facility] [place] [facility] [address] [id number] [place] [address]- 0206 Jun, [facility] [place] [facility] [address] [id number] [address]- 8280 Jun, [facility] [place] [facility] [address] [id number] [place] [address]- 8312 Jun, [facility] [place] [facility] [address] [id number] [place] [address]- 7493 Jun, [facility] [place] [facility] [address] [id number] [place] [address]- 7589 Jun, [facility] [place] [facility] [address] [id number] [place] [address]- 4193 Jun, [facility] [place] [facility] [address] [id number] [place] [address]- 8950 Jun, [facility] [place] [facility] [address] [id number] [place] [address]- 7015 Jun, [facility] [place] [facility] [address] [id number] [place] [address]- 2013 Jun, 2014 [facility] [place] [facility] [address] [facility] [id number] [place] [address]- 1805 Jun, [facility] [place] [facility] [address] [id number] [place] [address]- 1327 Jun, [facility] [place] [facility] [address] [id number] [place] [address]- 5746 Jun, [facility] [place] [facility] [address] [facility] [id number] [place] [address]- 9275 Jun, [facility] [place] [facility] [address] [facility] [id number] [place] [address]- 4119 May, 2014 [facility] [place] [facility] [address] [facility] [id number] [place] [address]- 6446 May, [facility] [place] [facility] [address] [id number] [address]- 2104 May, [facility] [place] [facility] [address] [facility] [id number] [place] [address]- 4401 May, [facility] [place] [facility] [address] [facility] [id number] [place] [address]- 2548 May, 2014 [facility] [place] [facility] [address] [facility] [id number] [place] [address]- 2540 May, 2014 [facility] [place] [facility] [address] [facility] [id number] [place] 1942 May, 2014 [facility] [place] [facility] [address] [facility] [id number] [place] [address]881 May, 2014 [facility] [place] [facility] [address] [id number] [place] [address]- 2072 May, 2014 [facility] [place] [facility] [address] [facility] [id number] [place] [address]- 3429 20 May, 2014 [facility] [place] [facility] [address] [facility] [id number] [place] [address]- 6886 18 May, 2014 [facility] [place] [facility] [address] [facility] [id number] [place] [address]- 2335 18 May, 2014 [facility] [place] [facility] [address] [facility] [id number] [place] [address]- 8925 13 May, 2014 [facility] [place] [facility] [address] [facility] [id number] [place] [address]- 3209 13 May, 2014 [facility] [place] [facility] [address] [facility] [id number] [place] [address]- 0243 11 May, 2014 [facility] [place] [facility] [address] [id number] [place] [address]- 3652 May, 2014 [facility] [place] [facility] [address] [facility] [id number] [place] [address]- 8308 May, 2014 [facility] [place] [facility] [address] [facility] [id number] [place] [address]- 4725 May, 2014 [facility] [place] [facility] [address] [facility] [id number] [place] [address]- 1787 09 May, 2014 [facility] [place] [facility] [address] [facility] [id number] [place] [address]- 3476 May, 2014 [facility] [place] [facility] [address] [facility] [id number] [address]- 2547 May, 2014 [facility] [place] [facility] [address] [facility] [id number] [place] [address]- 6474 May, 2014 [facility] [place] [facility] [address] [facility] [id number] [place] [address]- 5124 May, 2014 [facility] [place] [facility] [address] [id number] [place] [address]- 8086 May, [facility] [place] [facility] [address] [id number] [place] [address]- 1947 May, [facility] [place] [facility] [address] [id number] [place] [address]- 0163 May, [facility] [place] [facility] [address] [id number] [place] [address]- 0093 May, [facility] [place] [facility] [address] [id number] [place] [address]- 9159 Apr, [facility] [place] [facility] [address] [id number] [place] [address]- 6829 Apr, [facility] [place] [facility] [address] [id number] [place] [address]- 6316 Apr, [facility] [place] [facility] [address] [id number] [place] [address]- 1442 Apr, [facility] [place] [facility] [address] [id number] [address]- 6145 Apr, [facility] [place] [facility] [address] [id number] [place] [address]- 8560 Apr, [facility] [place] [facility] [address] [id number] [address]- 7206 Apr, [facility] [place] [facility] [address] [id number] [address]- 2451 Apr, [facility] [place] [facility] [address] [id number] [address]- 5671 Apr, [facility] [place] [facility] [address] [id number] [place] [address]- 7380 Apr, [facility] [place] [facility] [address] [id number] [address]- 4949 Apr, [facility] [place] [facility] [address] [id number] [address]- 4517 Apr, [facility] [place] [facility] [address] [id number] [place] [address]- 7454 Apr, [facility] [address] [id number] [place] [address]- 0293 Apr, [facility] [place] [facility] [address] [id number] [place] [address]- 2653 Apr, [facility] [place] [facility] [address] [id number] [place] [address]- 2893 Apr, [facility] [place] [facility] [address] [id number] [place] [address]- 4097 Apr, [facility] [place] [facility] [address] [id number] [place] [address]- 4027 Apr, [facility] [place] [facility] [address] [id number] [place] [address]- 5463 Apr, [facility] [address] [id number] [place] [address]- 1158 Apr, [facility] [place] [facility] [address] [id number] [place] [address]- 9260 Mar, [facility] [place] [facility] [address] [id number] [place] [address]- 2593 Mar, [facility] [place] [facility] [address] [id number] [place] [address]- 8677 Mar, [facility] [place] [facility] [address] [id number] [place] [address]- 9482 Mar, [facility] [place] [facility] [address] [id number] [place] [address]- 0402 Mar, [facility] [place] [facility] [address] [id number] [place] [address]- 1952 Mar, [facility] [place] [facility] [address] [id number] [place] [address]- 5994 Mar, [facility] [place] [facility] [address] [id number] [place] [address]- 3619 Mar, [facility] [place] [facility] [address] [id number] [place] [address]- 4557 15 Mar, 2014 [facility] [place] [facility] [address] [id number] [place] [address]- 7773 Mar, [facility] [place] [facility] [address] [id number] [place] [address]- 8369 Mar, [facility] [place] [facility] [address] [id number] [place] [address]- 3788 Mar, [facility] [place] [facility] [address] [id number] [place] [address]- 3803 Mar, [facility] [place] [facility] [address] [id number] [place] [address]- 3222 Mar, [facility] [place] [facility] [address] [id number] [place] [address]- 4282 Mar, [facility] [place] [facility] [address] [id number] [place] [address]- 5952 Mar, [facility] [place] [facility] [address] [id number] [place] [address]- 8255 Feb, [facility] [place] [facility] [address] [id number] [place] [address]- 1364 Feb, [facility] [place] [facility] [address] [id number] [place] [address]- 8394 Feb, [facility] [place] [facility] [address] [id number] [place] [address]- 2477 Feb, [facility] [place] [facility] [address] [id number] [place] [address]- 9104 Feb, [facility] [place] [facility] [address] [id number] [place] [address]- 0671 Feb, [facility] [place] [facility] [address] [id number] [place] [address]- 9841 Feb, [facility] [place] [facility] [address] [id number] [address]- 7414 18 Feb, 2014 [facility] [place] [facility] [address] [id number] [place] [address]- 2580 18 Feb, 2014 [facility] [place] [facility] [address] [id number] [place] [address]- 6800 17 Feb, 2014 [facility] [place] [facility] [address] [id number] [place] [address]- 5242 17 Feb, 2014 [facility] [place] [facility] [address] [id number] [place] [address]- 1274 17 Feb, 2014 [facility] [place] [facility] [address] [id number] [place] [address]- 2168 17 Feb, 2014 [facility] [place] [facility] [address] [id number] [place] [address]- 8028 14 Feb, 2014 [facility] [place] [facility] [address] [id number] [place] [address]- 2052 Feb, [facility] [place] [facility] [address] [id number] [place] [address]- 1178 14 Feb, 2014 [facility] [place] [facility] [address] [id number] [place] [address]- 6153 14 Feb, 2014 [facility] [place] [facility] [address] [id number] [place] [address]- 8251 Feb, [facility] [place] [facility] [address] [id number] [address]- 7966 Feb, [facility] [place] [facility] [address] [id number] [address]- 1421 Feb, [facility] [place] [facility] [address] [id number] [place] [address]- 2745 Feb, [facility] [place] [facility] [address] [id number] [place] [address]- 2664 Jan, [facility] [place] [facility] [address] [id number] [place] [address] Jan, [facility] [place] [facility] [address] [id number] [place] [address] 30 Jan, 2013 [facility] [place] [facility] [address] [id number] [place] [address] 30 Jan, 2014 [facility] [place] [facility] [address] [id number] [place] [address] 5769 24 Jan, 2014 [facility] [place] [facility] [address] [id number] [place] [address] 24 Jan, 2014 [facility] [place] [facility] [address] [id number] [place] [address] Jan, [facility] [place] [facility] [address] [id number] [place] [address] Jan, [facility] [place] [facility] [address] [id number] [place] [address] 28[address] Jan, [facility] [place] [facility] [address] [id number] [place] [address] 48[address] Jan, [facility] [place] [facility] [address] [id number] [place] [address]335 17 Jan, 2014 [facility] [place] [facility] [address] [id number] [place] [address] 8808 17 Jan, 2014 [facility] [place] [facility] [address] [id number] [place] [address]- 2844 17 Jan, 2014 [facility] [place] [facility] [address] [id number] [place] [address]- 0814 17 Jan, 2013 [facility] [place] [facility] [address] [id number] [place] [address]- [address]345 15 Jan, 2014 [facility] [place] [facility] [address] [id number] [place] [address]- 7730 15 Jan, 2014 [facility] [place] [facility] [address] [id number] [place] [address]- 3007 14 Jan, 2014 [facility] [place] [facility] [address] [id number] [place] [address]- 5512 14 Jan, 2014 [facility] [place] [facility] [address] [id number] [place] [address] Jan, [facility] [place] [facility] [address] [id number] [place] [address] Jan, [facility] [place] [facility] [address] [id number] [place] [address]248 Jan, [facility] [place] [facility] [address] [id number] [place] [address] Jan, [facility] [place] [facility] [address] [id number] [place] [address]- [address] Jan, [facility] [place] [facility] [address] [id number] [place] [address] 1619 Jan, [facility] [place] [facility] [address] [id number] [place] [address]- 73[address] Jan, [facility] [place] [facility] [address] [id number] [address] 25 Dec, 2013 [facility] [place] [facility] [address] [id number] [place] [address]116 25 Dec, 2013 [facility] [place] [facility] [address] [id number] [address] 23 Dec, 2013 [facility] [place] [facility] [address] [id number] [address] 23 Dec, 2013 [facility] [place] [facility] [address] [id number] [address] 19 Dec, 2013 [facility] [place] [facility] [address] [id number] [place] [address] 0840 19 Dec, 2013 [facility] [place] [facility] [address] [id number] [place] [address] 17 Dec, 2013 [facility] [place] [facility] [address] [id number] [place] [address] 17 Dec, 2013 [facility] [place] [facility] [address] [id number] [place] [address] Sep, 2013 [facility] [place] [facility] [address] [id number] [place] [address]- 8618 09 Sep, 2013 [facility] [place] [facility] [address] [id number] [place] [address] 2914 Dec, 2013 [facility] [place] [facility] [address] [id number] [place] [address]- 5729 Dec, 2013 [facility] [place] [facility] [address] [id number] [place] [address]- [address] Dec, 2013 [facility] [place] [facility] [address] [id number] [place] [address]- 0083 Dec, 2013 [facility] [place] [facility] [address] [id number] [place] [address]- 7989 Dec, 2013 [facility] [place] [facility] [address] [id number] [place] [address]- 9614 Dec, 2013 [facility] [place] [facility] [address] [id number] [place] [address]- [address]297 Dec, 2013 [facility] [place] [facility] [address] [id number] [place] [address]- 1106 Dec, 2013 [facility] [place] [facility] [address] [id number] [place] [address] 3726 Nov, [facility] [place] [facility] [address] [id number] [place] [address] Nov, [facility] [place] [facility] [address] [id number] [place] [address]- 8578 Nov, [facility] [place] [facility] [address] [id number] [place] [address]- 2628 Nov, [facility] [place] [facility] [address] [id number] [place] [address]- 1265 Nov, [facility] [place] [facility] [address] [id number] [place] [address]- 2820 Nov, [facility] [place] [facility] [address] [id number] [place] [address]- 5086 Nov, [facility] [place] [facility] [address] [id number] [place] [address] Nov, [facility] [place] [facility] [address] [id number] [place] [address] Nov, [facility] [place] [facility] [address] [id number] [place] [address]- 1253 Nov, [facility] [place] [facility] [address] [id number] [place] [address]- 6902 Nov, [facility] [place] [facility] [address] [id number] [place] [address]- 2530 Nov, [facility] [place] [facility] [address] [id number] [place] [address]- 9784 Oct, [facility] [place] [facility] [address] [id number] [place] [address]- 2768 Oct, [facility] [place] [facility] [address] [id number] [place] [address]- 4247 Oct, [facility] [place] [facility] [address] [id number] [place] [address]- 7496 Oct, [facility] [place] [facility] [address] [id number] [place] [address]- 2372 Oct, [facility] [place] [facility] [address] [id number] [place] [address]- 0370 Oct, [facility] [place] [facility] [address] [id number] [place] [address]- 1538 Oct, [facility] [place] [facility] [address] [id number] [place] [address]- 7974 Oct, [facility] [place] [facility] [address] [id number] [place] [address]- 1156 Oct, [facility] [place] [facility] [address] [id number] [place] [address]- 6926 22 Oct, 2013 [facility] [place] [facility] [address] [id number] [place] [address]- 5838 16 Oct, 2013 [facility] [place] [facility] [address] [id number] [place] [address]- 6737 16 Oct, 2013 [facility] [place] [facility] [address] [id number] [place] [address] 14 Oct, 2013 [facility] [place] [facility] [address] [id number] [place] [address] 5190 14 Oct, 2013 [facility] [place] [facility] [address] [id number] [place] [address] 1159 Oct, [facility] [place] [facility] [address] [id number] [place] [address] 7837 13 Oct, 2013 [facility] [place] [facility] [address] [id number] [place] [address] 4649 Oct, [facility] [place] [facility] [address] [id number] [place] [address]- 6298 27 Sep, 2013 [facility] [place] [facility] [address] [id number] [place] [address]- 3798 27 Sep, 2013 [facility] [place] [facility] [address] [id number] [place] [address] 4506 20 Sep, 2013 [facility] [place] [facility] [address] [id number] [place] [address] 1985 20 Sep, 2013 [facility] [place] [facility] [address] [id number] [place] [address] 5030 18 Sep, 2013 [facility] [place] [facility] [address] [id number] [place] [address]- 4543 18 Sep, 2013 [facility] [place] [facility] [address] [id number] [place] [address]- 0643 17 Sep, 2013 [facility] [place] [facility] [address] [id number] [place] [address]- 6873 17 Sep, 2013 [facility] [place] [facility] [address] [id number] [place] [address]- 8415 Sep, [facility] [place] [facility] [address] [id number] [place] [address]- 8174 Sep, [facility] [place] [facility] [address] [id number] [place] [address]- 2176 Sep, [facility] [place] [facility] [address] [id number] [place] [address]- 5367 Sep, [facility] [place] [facility] [address] [id number] [place] [address]- 6368 Sep, [facility] [place] [facility] [address] [id number] [place] [address]- 7510 Sep, [facility] [place] [facility] [address] [id number] [place] [address]- 2258 Sep, [facility] [place] [facility] [address] [id number] [place] [address]- 8306 Sep, [facility] [place] [facility] [address] [id number] [place] [address]- 2699 Sep, [facility] [place] [facility] [address] [id number] [place] [address]- 9573 Sep, [facility] [place] [facility] [address] [id number] [place] [address]- 9246 Sep, [facility] [place] [facility] [address] [id number] [place] [address]- 3069 Sep, [facility] [place] [facility] [address] [id number] [place] [address]- 6576 Sep, [facility] [place] [facility] [address] [id number] [place] [address]- 7329 Sep, [facility] [place] [facility] [address] [id number] [place] [address]- 5179 August, [facility] [place] [facility] [address] [id number] [place] [address]- 0095 August, [facility] [place] [facility] [address] [id number] [place] [address]- 6885 August, [facility] [place] [facility] [address] [id number] [place] [address]- 5424 August, [facility] [place] [facility] [address] [id number] [place] [address]- 8253 August, [facility] [place] [facility] [address] [id number] [place] [address]- 3068 August, [facility] [place] [facility] [address] [id number] [place] [address]- 1672 August, [facility] [place] [facility] [address] [id number] [place] [address]- 5128 August, [facility] [place] [facility] [address] [id number] [place] [address] 2532 August, [facility] [place] [facility] [address] [id number] [place] [address]- 4033 August, [facility] [place] [facility] [address] [id number] [place] [address]- 9822 August, [facility] [place] [facility] [address] [id number] [place] [address]- 1574 Jul, [facility] [place] [facility] [address] [id number] [place] [address]- 1346 Jul, [facility] [place] [facility] [address] [id number] [place] [address]- 3236 Jul, [facility] [place] [facility] [address] [id number] [place] [address]- 8566 Jul, [facility] [place] [facility] [address] [id number] [place] [address]- 2015 Jul, [facility] [place] [facility] [address] [id number] [place] [address]- 8190 Jul, [facility] [place] [facility] [address] [id number] [place] [address]- 9581 Jul, [facility] [place] [facility] [address] [id number] [place] [address]- 1229 Jul, [facility] [place] [facility] [address] [id number] [place] [address]- 8794 Jul, [facility] [place] [facility] [address] [id number] [place] [address]- 8949 Jul, [facility] [place] [facility] [address] [id number] [place] [address]- 9630 16 Jul, 2013 [facility] [place] [facility] [address] [id number] [place] [address]- 4715 Jul, [facility] [place] [facility] [address] [id number] [place] [address]- 0369 Jul, [facility] [place] [facility] [address] [id number] [place] [address]- 0596 Jul, [facility] [place] [facility] [address] [id number] [place] [address]- 8084 Jul, [facility] [place] [facility] [address] [id number] [place] [address]- 2990 Jul, [facility] [place] [facility] [address] [id number] [place] [address]- 7612 Jul, [facility] [place] [facility] [address] [id number] [place] [address]- 4800 Jul, [facility] [place] [facility] [address] [id number] [place] [address]- 0466 Jul, [facility] [place] [facility] [address] [id number] [place] [address]- 7230 Jul, [facility] [place] [facility] [address] [id number] [place] [address]- 8096 Jul, [facility] [place] [facility] [address] [id number] [place] [address]- 0595 Jul, [facility] [place] [facility] [address] [id number] [place] [address]- 6521 Jul, [facility] [address] [id number] [place] [address]- 7448 Jun, [facility] [place] [facility] [address] [id number] [place] [address]- 5446 Jun, [facility] [address] [id number] [place] [address]- 1766 Jun, [facility] [place] [facility] [address] [id number] [place] [address]- 4799 Jun, [facility] [address] [id number] [place] [address]- 1834 Jun, [facility] [address] [id number] [place] [address]- 4347 Jun, [facility] [place] [facility] [address] [id number] [place] [address]- 3805 Jun, [facility] [address] [id number] [place] [address]- 4817 Jun, [facility] [place] [facility] [address] [id number] [place] [address]- 4604 Jun, [facility] [address] [id number] [place] [address]- 3539 Jun, [facility] [place] [facility] [address] [id number] [place] [address]- 1041 Jun, [facility] [place] [facility] [address] [id number] [place] [address]- 5746 Jun, [facility] [place] [facility] [address] [id number] [place] [address]- 2513 May, [facility] [place] [facility] [address] [id number] [place] [address]- 5936 May, [facility] [place] [facility] [address] [id number] [place] [address]- 1914 Apr, [facility] [place] [facility] [address] [id number] [place] [address]- 8528 Apr, [facility] [place] [facility] [address] [id number] [place] [address]- 4250 Apr, [facility] [place] [facility] [address] [id number] [place] [address]- 8947 Apr, [facility] [place] [facility] [address] [id number] [place] [address]- 5938 Apr, [facility] [place] [facility] [address] [id number] [place] [address]- 4910 Apr, [facility] [place] [facility] [address] [id number] [place] [address]- 9686 Apr, [facility] [place] [facility] [address] [id number] [place] [address]- 1830 Apr, [facility] [place] [facility] [address] [id number] [place] [address]- 3973 Apr, [facility] [place] [facility] [address] [id number] [place] [address]- 0615 Apr, [facility] [place] [facility] [address] [id number] [place] [address]- 6797 Apr, [facility] [place] [facility] [address] [id number] [place] [address]- 7223 16 Mar, 2013 [facility] [place] [facility] [address] [id number] [place] [address]- 2897 Mar, [facility] [place] [facility] [address] [id number] [place] [address]- 7170 Mar, [facility] [place] [facility] [address] [id number] [place] [address]- 0887 Mar, [facility] [place] [facility] [address] [id number] [place] [address]- 7191 Feb, [facility] [place] [facility] [address] [id number] [address]- 8338 Feb, [facility] [place] [facility] [address] [id number] [place] [address]- 9295 Feb, [facility] [place] [facility] [address] [id number] [address]- 4867 Feb, [facility] [place] [facility] [address] [id number] [place] [address]- 3087 Feb, [facility] [place] [facility] [address] [id number] [address]- 1264 Feb, [facility] [place] [facility] [address] [id number] [place] [address]- 6150 Feb, [facility] [place] [facility] [address] [id number] [address]- 9680 Feb, [facility] [place] [facility] [address] [id number] [address]- 5094 Feb, [facility] [place] [facility] [address] [id number] [address]- 4121 Feb, [facility] [place] [facility] [address] [id number] [address]- 3507 Feb, [facility] [place] [facility] [address] [id number] [address]- 0033 Jan, [facility] [place] [facility] [address] [id number] [address]- 1012 Jan, [facility] [place] [facility] [address] [id number] [address]- 3349 Jan, [facility] [place] [facility] [address] [id number] [address]- 5557 Jan, [facility] [place] [facility] [address] [id number] [address]- 5444 Jan, [facility] [place] [facility] [address] [id number] [address]- 4266 Jan, [facility] [place] [facility] [address] [id number] [place] [address]- 6783 03 Jan, 2013 [facility] [place] [facility] [address] [id number] [place] [address]- 7386 02 Jan, 2013 [facility] [place] [facility] [address] [id number] [place] [address] 2546 30 Dec, 2012 [facility] [place] [facility] [address] [id number] [place] [address] 2546 25 Dec, 2012 [facility] [place] [facility] [address] [id number] [place] [address] 2540 18 Dec, 2012 [facility] [place] [facility] [address] [id number] [place] [address]- 3707 17 Dec, 2012 [facility] [place] [facility] [address] [id number] [place] [address]- 9161 17 Dec, 2012 [facility] [place] [facility] [address] [id number] [place] [address]- 3353 16 Dec, 2012 [facility] [place] [facility] [address] [id number] [place] [address]- 6827 13 Dec, 2012 [facility] [place] [facility] [address] [id number] [place] [address]- 2115 11 Dec, 2012 [facility] [place] [facility] [address] [id number] [place] [address] 2542 05 Dec, 2012 [facility] [place] [facility] [address] [id number] [place] [address]- 2549 04 Dec, 2012 [facility] [place] [facility] [address] [id number] [place] [address] 2541 30 Nov, 2012 [facility] [place] [facility] [address] [id number] [place] [address] 2542 29 Nov, 2012 [facility] [place] [facility] [address] [id number] [place] [address]- 2541 22 Nov, 2012 [facility] [place] [facility] [address] [id number] [place] [address]- 1628 16 Nov, 2012 [facility] [place] [facility] [address] [id number] [place] [address]- 5487 14 Nov, 2012 [facility] [place] [facility] [address] [id number] [place] [address]- 1646 Nov, [facility] [place] [facility] [address] [id number] [place] [address]- 9017 Nov, [facility] [place] [facility] [address] [id number] [place] [address]- 4858 Oct, [facility] [place] [facility] [address] [id number] [place] [address]- 8603 Oct, [facility] [place] [facility] [address] [id number] [place] [address]- 7546 Oct, [facility] [place] [facility] [address] [id number] [place] [address]- 9213 Oct, [facility] [place] [facility] [address] [id number] [place] [address]- 9919 15 Oct, 2012 [facility] [place] [facility] [address] [id number] [place] [address]- 2564 Oct, [facility] [place] [facility] [address] [id number] [place] [address]- 8225 Sep, [facility] [place] [facility] [address] [id number] [place] [address]- 6087 28 Sep, 2012 [facility] [place] [facility] [address] [id number] [address]- 1003 27 Sep, 2012 [facility] [place] [facility] [address] [id number] [place] [address]- 5338 14 Sep, 2012 [facility] [place] [facility] [address] [id number] [place] [address]- 3362 13 Sep, 2012 [facility] [place] [facility] [address] [id number] [place] [address]- 1979 10 Sep, 2012 [facility] [place] [facility] [address] [id number] [place] [address]- 4500 Sep, [facility] [address] [id number] [place] [address]- 6926 Sep, [facility] [address] [id number] [place] [address]- 1427 Sep, [facility] [address] [id number] [place] [address]- 9627 August, [facility] [address] [id number] [place] [address]- 1888 August, [facility] [address] [id number] [place] [address]- 5988 August, [facility] [address] [id number] [place] [address]- 7929 August, [facility] [address] [id number] [place] [address]- 0926 August, [facility] [address] [id number] [place] [address]- 0603 August, [facility] [address] [id number] [place] [address]- 2851 August, [facility] [address] [id number] [place] [address]- 1928 August, [facility] [address] [id number] [place] [address]- 4418 Jul, [facility] [address] [id number] [place] [address]- 2780 Jul, [facility] [address] [place] [id number] Jul [facility] [address] [id number] [place] [address]- 2505 Jun, [facility] [address] [id number] [place] [address]- 3054 Jun, [facility] [place] [facility] [address] [id number] [place] [address]- 6809 Jun, [facility] [address] [id number] [place] [address]- 2542 Jun, [facility] [place] [facility] [address] [id number] [place] [address]- 4681 Jun, [facility] [address] [id number] [place] [address]- 7688 Jun, [facility] [address] [id number] [place] [address]- 6533 May, [facility] [address] [id number] [place] [address]- 9732 May, [facility] [address] [id number] [place] [address]- 4974 May, [facility] [address] [id number] [place] [address]- 7981 May, [facility] [address] [id number] [place] [address]- 0575 May, [facility] [address] [id number] [place] [address]- 4189 Apr, [facility] [address] [id number] [place] [address]- 4258 Apr, [facility] [address] [id number] [place] [address]- 7354 Apr, [facility] [address] [id number] [place] [address]- 6339 Apr, [facility] [place] [facility] [address] [id number] [place] [address]- 8525 Apr, [facility] [place] [facility] [address] [id number] [place] [address]- 2199 Apr, [facility] [place] [facility] [address] [id number] [place] [address]- 8515 Mar, [facility] [place] [facility] [address] [id number] [place] [address]- 7626 Mar, [facility] [place] [facility] [address] [id number] [place] [address]- 5056 Mar, [facility] [place] [facility] [address] [id number] [place] [address]- 7616 Mar, [facility] [place] [facility] [address] [id number] [place] [address]- 8606 Mar, [facility] [place] [facility] [address] [id number] [place] [address]- 7831 Mar, [facility] [place] [facility] [address] [id number] [place] [address]- 3798 Mar, [facility] [place] [facility] [address] [id number] [place] [address]- 0810 Mar, [facility] [place] [facility] [address] [id number] [place] [address]- 3329 Mar, [facility] [place] [facility] [address] [id number] [place] [address] Mar, [facility] [place] [facility] [address] [id number] [place] [address] Mar, [facility] [place] [facility] [address] [id number] [place] [address] Feb, [facility] [place] [facility] [address] [id number] [address] Feb, [facility] [place] [facility] [address] [id number] [place] [address] Feb, [facility] [place] [facility] [address] [id number] [place] [address] Feb, [facility] [place] [facility] [address] [id number] [place] [address] Feb, [facility] [place] [facility] [address] [id number] [place] [address] 16 Feb, 2012 [facility] [place] [facility] [address] [id number] [place] [address] 16 Feb, 2012 [facility] [place] [facility] [address] [id number] [place] [address] Feb, [facility] [place] [facility] [address] [id number] [place] [address] Feb, [facility] [place] [facility] [address] [id number] [place] [address] Feb, [facility] [place] [facility] [address] [id number] [place] [address] Feb, [facility] [place] [facility] [address] [id number] [place] [address] Jan, [facility] [place] [facility] [address] [id number] [place] [address] Jan, [facility] [place] [facility] [address] [id number] [place] [address] Jan, [facility] [place] [facility] [address] [id number] [place] [address] Jan, [facility] [place] [facility] [address] [facility] [id number] [place] [address] Jan, [facility] [place] [facility] [address] [id number] [place] [address] Jan, [facility] [place] [facility] [address] [id number] [place] [address] 09 Jan, 2012 [facility] [place] [facility] [address] [id number] [place] [address]- [address] 24 Dec, 2011 [facility] [place] [facility] [address] [id number] [place] [address] 17 Sep2011 [facility] [place] [facility] [address] [id number] [place] [address] 13 Dec, 2011 [facility] [place] [facility] [address] [id number] [place] [address] Dec, [facility] [place] [facility] [address] [id number] [place] [address] Nov, [facility] [place] [facility] [address] [id number] [place] [address] Nov, [facility] [place] [facility] [address] [id number] [place] [address] Nov, [facility] [place] [facility] [address] [id number] [place] [address] 15 Nov, 2011 [facility] [place] [facility] [address] [id number] [place] [address] Nov, [facility] [place] [facility] [address] [id number] [place] [address] Nov, [facility] [place] [facility] [address] [id number] [place] [address] 47[address] Nov, [facility] [place] [facility] [address] [id number] [place] [address] Nov, [facility] [place] [facility] [address] [id number] [place] [address] 99[address] Nov, [facility] [place] [facility] [address] [id number] [place] [address] Nov, [facility] [place] [facility] [address] [id number] [place] [address]- [address] Nov, [facility] [place] [facility] [address] [id number] [place] [address] Nov, [facility] [place] [facility] [address] [id number] [place] [address] Nov, [facility] [place] [facility] [address] [id number] [place] [address]- [address] Oct, [facility] [place] [facility] [address] [id number] [place] [address]- 1836 Oct, [facility] [place] [facility] [address] [id number] [place] [address]- [address] Oct, [facility] [place] [facility] [address] [id number] [place] [address] Oct, [facility] [place] [facility] [address] [id number] [place] [address] Oct, [facility] [place] [facility] [address] [id number] [place] [address] 6[address] Oct, [facility] [place] [facility] [address] [id number] [place] [address] Oct, [facility] [place] [facility] [address] [id number] [place] [address] 1706 Oct, [facility] [place] [facility] [address] [id number] [place] [address] Oct, [facility] [place] [facility] [address] [id number] [place] [address]- [address] Sep, [facility] [place] [facility] [address] [id number] [place] [address]- 0869 Sep, [facility] [place] [facility] [address] [id number] [place] [address] 3583 Sep, [facility] [place] [facility] [address] [id number] [place] [address] 37[address] Sep, [facility] [place] [facility] [address] [id number] [place] [address]- 4[address] Sep, [facility] [place] [facility] [address] [id number] [place] [address] Sep, [facility] [place] [facility] [address] [id number] [place] [address]- 1091 Sep, [facility] [place] [facility] [address] [id number] [place] [address] Sep, [facility] [place] [facility] [address] [id number] [address] August, [facility] [id number] [address] August, [facility] [id number] [address] August, [facility] [id number] [address] August, [facility] [id number] [address] August, [facility] [id number] [address] August, [facility] [id number] [address] August, [facility] [id number] [address] August, [facility] [id number] [address]36 August, [facility] [id number] [address]64 August, [facility] [id number] [address] August, [facility] [id number] [address] August, [facility] [id number] [address] Oct, IMMUNIZATIONS No Known Immunizations SOCIAL HISTORY [...]
--- OUTSIDE RECORDS SUMMARY | 2018-02-11 13:02 | XMS REPORT ---
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 06734- 9113 Jun, [facility] [id number] [place] [address] 93061- 2066 Jun, Unspecified mood [affective] disorder F39 [facility] [address], [place] [address]- 1249 Jun, Unspecified mood [affective] disorder F39 [facility] [address], [place] [address]- 0420 Jun, Unspecified mood [affective] disorder F39 [facility] [id number] [place] [address] 87454- 4339 Jun, Unspecified mood [affective] disorder F39 [facility] [id number] [place] [address] 75774- 1299 Jun, [facility] [id number] [place] [address] 61865- 8690 Jun, Type 2 diabetes mellitus with hyperglycemia E11.65 ; 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 ; Folliculitis L73.9 ; Dysuria R30.0 ; Encounter for contraceptive management Z30.9 and Dog bite W54.0XXA [facility] [id number] [place] [address] 26316- 4313 Jun, Unspecified mood [affective] disorder F39 [facility] [id number] [place] [address] 88175- 3358 Jun, Type 2 diabetes mellitus with hyperglycemia E11.65 [facility] [id number] [place] [address] 08042- 5854 May, Unspecified mood [affective] disorder F39 [facility] [address], [place] [address]- 7416 May, [facility] [id number] [place] [address] 00130- 9582 May, [facility] [address], [place] [address]- 6061 May, [facility] [id number] [place] [address] 58943- 0733 Apr, [facility] [id number], [place] [address]- 6517 Apr, Unspecified mood [affective] disorder F39 [facility] [id number] [place] [address] 11054- 5945 Apr, [facility] [id number] [place] [address] 34601- 8135 Apr, [facility] [id number] [place] [address] 79643- 3597 Apr, [facility] [id number] [place] [address] 36922- 7261 Apr, Dysuria R30.0 and Well woman exam (no gynecological exam) Z00.00 [place] [id number] [place] [address] 96360- 0573 Mar, [facility] [id number] [place] [address] 15966- 7714 Mar, [facility] [id number] [place] [address] [id number] Mar, Dental examination Z01.20 [place] [id number] [place] [address] 12778- 0192 Mar, Chronic diarrhea K52.9 ; Intractable vomiting with nausea, vomiting of unspecified type R11.2 ; Cellulitis, unspecified cellulitis site L03.90 ; Type 2 diabetes mellitus with diabetic polyneuropathy E11.42 and Postinflammatory hyperpigmentation L81.0 [facility] [id number] [place] [address] 07013- 0992 Mar, Unspecified mood [affective] disorder F39 [facility] [id number] [place] [address] 78241- 0778 Mar, Unspecified mood [affective] disorder F39 [facility] [id number] [place] [address] 25365- 7385 Mar, [facility] [id number], [place] [address]- 0391 Mar, [facility] [id number], [place] [address]- 1012 Mar, [facility] [id number], [place] [address]- 9344 Mar, [facility] [id number] [place] [address] 81894- 1670 Mar, [facility] [address] [facility] [id number] [address]- 0161 Mar, [facility] [id number] [place] [address] 13979- 7018 Feb, Unspecified mood [affective] disorder F39 [facility] [id number] [place] [address] 90014- 2313 Feb, [facility] [id number], [place] [address]- 6500 Feb, [facility] [address], [place] [address]- 4326 Jan, Unspecified mood [affective] disorder F39 [facility] [place] [id number] [facility] [address] [id number] [id number] Jan, Encounter for dental examination Z01.20 [facility] [address], [place] [address]- 4365 Jan, [facility] [id number], [place] [address]- 1993 Jan, [facility] [address], [place] [address]- 4369 Jan, [facility] [id number], [place] [address]- 8394 Jan, [facility] [address], [place] [address]- 7739 Jan, [facility] [id number] [place] [address] 42629- 0279 08 Jan, 2015 Abdominal abscess K65.1 and Dental caries K02.9 [facility] [id number] [place] [address] 26634- 0507 Jan, [facility] [id number] [place] [address] 04627- 4932 30 Dec, 2014 Diabetes with neurological manifestations, type II or unspecified type, not stated as uncontrolled 250.60 ; Essential hypertension, benign 401.1 ; Concussion 850.9 and Skin texture changes 782.8 [facility] [address] 89790- 8508 Dec, [facility] [id number] [place] [address] 57259- 1656 24 Dec, 2014 [facility] [address] 03783- 8259 Dec, [facility] [id number] [place] [address] 82494- 8923 Dec, [facility] [id number] [place] [address] 88466- 4958 17 Dec, 2014 Affective disorder 296.90 [facility] [id number] [place] [address] 34285- 6875 14 Dec, 2014 [facility] [id number] [place] [address] 80798- 2547 10 Dec, 2014 Affective disorder 296.90 [facility] [id number] [place] [address] 13156- 3666 Dec, [facility] [id number] [place] [address] 54909- 4845 Dec, [facility] [id number] [place] [address] 00272- 2086 Dec, [facility] [address] [place] [address]- 6505 Dec, [facility] [id number] [place] [address] 26364- 1374 Nov, Affective disorder 296.90 [facility] [id number] [place] [address] 29360 2548 Nov, [facility] [id number] [place] [address] 07400- 8592 Nov, Affective disorder 296.90 [facility] [id number] [place] [address] 33325 2546 Nov, Diarrhea 787.91 [facility] [id number] [place] [address] 50083- 3086 Nov, [facility] [id number] [place] [address] 02692- 3340 Nov, Diarrhea 787.91 [facility] [id number] [place] [address] 62161 2549 Nov, Diarrhea 787.91 and Hyperlipidemia 272.4 [facility] [id number] [place] [address] 14902- 2661 Nov, Diarrhea 787.91 [facility] [id number] [place] [address] 80860 2549 Nov, Affective disorder 296.90 [facility] [id number] [place] [address] 93334 2542 Nov, Affective disorder 296.90 [facility] [address], [place] [address]- 6423 Nov, Affective disorder 296.90 [facility] [id number] [place] [address] 58982- 9928 Nov, [facility] [id number] [place] [address] 81427- 3092 Nov, [facility] [id number] [place] [address] 34971- 2844 Nov, [facility] [address], [place] [address]- 7336 Nov, Episodic mood disorder 296.90 [facility] [address], [place] [address]- 4935 Nov, [facility] [id number] [place] [address] 24252- 6283 Nov, [facility] [id number] [place] [address] 61615- 8574 Nov, [facility] [id number] [place] [address] 62948- 3749 Nov, [facility] [address], [place] [address]- 5894 Nov, [facility] [id number] [place] [address] 79055- 9788 Nov, Lymphedema 457.1 ; Hyperlipidemia 272.4 ; Essential hypertension, benign 401.1 and Numbness of toes 782.0 [facility] [address] [address]- 7733 Nov, Episodic mood disorder 296.90 [facility] [address], [place] [address]- 9804 Oct, [facility] [id number], [place] [address]- 4284 Oct, [facility] [id number], [place] [address]- 2114 Oct, [facility] [id number], [place] [address]- 2204 Oct, [facility] [id number], [place] [address]- 9370 Oct, [facility] [address], [place] [address]- 9135 Oct, [facility] [address] [facility] [id number] [place] [address]- 5706 Oct, 2014 [facility] [address] [facility] [id number] [place] [address]- 4681 Oct, 2014 [facility] [address] [facility] [id number] [place] [address]- 7628 Oct, Episodic mood disorder 296.90 [facility] [address] [facility] [id number] [place] [address]- 4662 30 Sep, 2014 [facility] [address] [facility] [id number] [place] [address]- 4463 29 Sep, 2014 [facility] [address] [facility] [id number] [place] [address]- 9090 Sep, [facility] [address] [facility] [id number] [place] [address]- 2291 Sep, [facility] [address] [facility] [id number] [place] [address]- 3421 Sep, [facility] [address] [facility] [id number] [address]- 1813 Sep, Episodic mood disorder 296.90 [facility] [address] [facility] [id number] [place] [address]- 5491 Sep, Unspecified episodic mood disorder 296.90 [facility] [address] [facility] [id number] [address] 18 Sep, 2014 [facility] [address] [facility] [id number] [address] 18 Sep, 2014 [facility] [address] [facility] [id number] [place] [address] 16 Sep, 2014 Episodic mood disorder 296.90 [facility] [address] [facility] [id number] [address] 15 Sep, 2014 [facility] [address] [id number], [place] [address] Sep, [facility] [id number] [address] Sep, [facility] [id number] [place] [address] Sep, Hematemesis 578.0 and Vomiting 787.03 [facility] [id number] [place] [address] Sep, Episodic mood disorder 296.90 [facility] [id number], [place] [address] Sep, [facility] [id number] [place] [address] Sep, [facility] [id number] [address] Sep, Diabetes mellitus without mention of complication, type II or unspecified type, not stated as uncontrolled 250.00 and Other chronic pain 338.29 [facility] [id number] [address] Sep, Episodic mood disorder 296.90 [facility] [id number] [place] [address] Sep, [facility] [id number], [place] [address] Sep, Episodic mood disorder 296.90 [facility] [id number] [address] Sep, [facility] [id number] [address] August, [facility] [id number] [address] August, [facility] [id number] [address] August, Episodic mood disorder 296.90 [facility] [id number] [place] [address] August, [facility] [address] [facility] [id number] [address] August, Unspecified episodic mood disorder 296.90 [facility] [address] [facility] [id number] [place] [address] August, Vomiting 787.03 [facility] [address] [facility] [id number] [place] [address] August, [facility] [address] [facility] [id number] [place] [address] August, [facility] [address] [facility] [id number] [place] [address] August, [facility] [address] [id number] [place] [address] August, [facility] [address] [id number] [address] August, [facility] [address] [id number] [place] [address] Jul, [facility] [address] [id number] [address] Jul, [facility] [address] [id number] [address] Jul, [facility] [address] [id number] [address] 69[address] Jun, [facility] [address] [facility] [id number] [place] [address]- 8011 Jun, [facility] [address] [facility] [id number] [address] Jun, [facility] [place] [facility] [address] [facility] [id number], [place] [address] Jun, [facility] [address] [id number] [address] 9[address] 30 Jun, 2014 [facility] [place] [facility] [address] [id number] [place] [address]- 6036 Jun, [facility] [place] [facility] [address] [id number] [place] [address]- 0764 Jun, [facility] [place] [facility] [address] [id number] [place] [address]- 9910 Jun, [facility] [place] [facility] [address] [id number] [place] [address]- 5941 Jun, [facility] [place] [facility] [address] [id number] [place] [address]- 6675 Jun, [facility] [place] [facility] [address] [id number] [place] [address]- 9455 Jun, [facility] [place] [facility] [address] [id number] [place] [address]- 9164 Jun, [facility] [place] [facility] [address] [id number] [place] [address]- 2290 Jun, [facility] [place] [facility] [address] [id number] [place] [address]- 3602 Jun, [facility] [place] [facility] [address] [id number] [place] [address]- 3963 Jun, [facility] [place] [facility] [address] [id number] [place] [address]- 3211 Jun, [facility] [place] [facility] [address] [id number] [place] [address]- 2208 Jun, [facility] [place] [facility] [address] [id number] [place] [address]- 5404 Jun, [facility] [place] [facility] [address] [id number] [place] [address]- 9284 Jun, [facility] [place] [facility] [address] [id number] [place] [address]- 6903 Jun, [facility] [place] [facility] [address] [id number] [place] [address]- 1469 21 Jun, 2014 [facility] [place] [facility] [address] [id number] [place] [address]- 3446 20 Jun, 2014 [facility] [place] [facility] [address] [id number] [place] [address]- 2616 20 Jun, 2014 [facility] [place] [facility] [address] [id number] [place] [address]- 8106 20 Jun, 2014 [facility] [place] [facility] [address] [id number] [place] [address]- 7280 20 Jun, 2014 [facility] [place] [facility] [address] [id number] [place] [address]- 2299 19 Jun, 2014 [facility] [place] [facility] [address] [id number] [place] [address]- 0898 19 Jun, 2014 [facility] [place] [facility] [address] [id number] [place] [address]- 5197 18 Jun, 2014 [facility] [place] [facility] [address] [id number] [place] [address]- 0927 18 Jun, 2014 [facility] [place] [facility] [address] [id number] [place] [address]- 5827 17 Jun, 2014 [facility] [place] [facility] [address] [id number] [place] [address]- 2364 17 Jun, 2014 [facility] [place] [facility] [address] [id number] [place] [address]- 7685 16 Jun, 2014 [facility] [place] [facility] [address] [id number] [place] [address]- 1935 16 Jun, 2014 [facility] [place] [facility] [address] [id number] [place] [address]- 0796 16 Jun, 2014 [facility] [place] [facility] [address] [id number] [place] [address]- 8356 16 Jun, 2014 [facility] [place] [facility] [address] [id number] [place] [address]- 8961 Jun, [facility] [place] [facility] [address] [id number] [place] [address]- 6047 16 Jun, 2014 [facility] [place] [facility] [address] [id number] [place] [address]- 7396 Jun, [facility] [place] [facility] [address] [id number] [place] [address]- 1978 Jun, [facility] [place] [facility] [address] [id number] [place] [address]- 2206 Jun, [facility] [place] [facility] [address] [id number] [place] [address]- 3113 Jun, [facility] [place] [facility] [address] [id number] [place] [address]- 5608 Jun, [facility] [place] [facility] [address] [id number] [place] [address]- 8045 Jun, 2014 [facility] [place] [facility] [address] [id number] [place] [address]- 6214 Jun, [facility] [place] [facility] [address] [id number] [place] [address]- 0040 Jun, [facility] [place] [facility] [address] [id number] [place] [address]- 8054 Jun, [facility] [place] [facility] [address] [id number], [place] [address]- 4[address] Jun, [facility] [place] [facility] [address] [id number] [address]- 2246 Jun, 2014 [facility] [place] [facility] [address] [id number] [place] [address]- 0897 Jun, [facility] [place] [facility] [address] [id number] [place] [address]- 6044 Jun, [facility] [place] [facility] [address] [id number] [place] [address]- 6713 Jun, [facility] [place] [facility] [address] [id number] [place] [address]- 1698 Jun, [facility] [place] [facility] [address] [id number] [place] [address]- 7330 Jun, [facility] [place] [facility] [address] [facility] [id number] [place] [address]- 1016 Jun, [facility] [place] [facility] [address] [facility] [id number] [place] [address]- 2032 Jun, [facility] [place] [facility] [address] [id number] [place] [address]- 8837 Jun, [facility] [place] [facility] [address] [id number] [place] [address]- 6296 Jun, [facility] [place] [facility] [address] [facility] [id number] [place] [address]- 9510 May, [facility] [place] [facility] [address] [facility] [id number] [place] [address]- 4449 May, 2014 [facility] [place] [facility] [address] [facility] [id number] [place] [address]- 0057 May, [facility] [place] [facility] [address] [id number] [place] [address]- 0782 May, [facility] [place] [facility] [address] [facility] [id number] [place] [address]- 9782 May, [facility] [place] [facility] [address] [facility] [id number] [place] [address]- 9021 May, 2014 [facility] [place] [facility] [address] [facility] [id number] [place] [address]- 2541 May, [facility] [place] [facility] [address] [facility] [id number] [place] [address]- 2011 May, 2014 [facility] [place] [facility] [address] [facility] [id number], [place] [address]- 6327 May, 2014 [facility] [place] [facility] [address] [facility] [id number], [place] [address]- 6014 May, 2014 [facility] [place] [facility] [address] [facility] [id number] [place] [address]- 0163 18 May, 2014 [facility] [place] [facility] [address] [facility] [id number] [place] [address]- 3156 18 May, 2014 [facility] [place] [facility] [address] [facility] [id number] [place] [address]- 5226 13 May, 2014 [facility] [place] [facility] [address] [facility] [id number] [place] [address]- 2547 13 May, 2014 [facility] [place] [facility] [address] [facility] [id number] [place] [address]- 7202 11 May, 2014 [facility] [place] [facility] [address] [id number] [place] [address]- 9487 May, 2014 [facility] [place] [facility] [address] [id number] [place] [address]- 8227 May, 2014 [facility] [place] [facility] [address] [facility] [id number] [place] [address]- 4737 May, 2014 [facility] [place] [facility] [address] [facility] [id number] [place] [address]- 5955 May, 2014 [facility] [place] [facility] [address] [facility] [id number] [place] [address]- 2695 May, 2014 [facility] [place] [facility] [address] [id number] [place] [address]- 2546 May, 2014 [facility] [place] [facility] [address] [facility] [id number], [place] [address]- 2540 May, 2014 [facility] [place] [facility] [address] [facility] [id number] [place] [address]- 5863 May, 2014 [facility] [place] [facility] [address] [facility] [id number] [address]- 2121 05 May, 2014 [facility] [place] [facility] [id number] [place] [address]- 1255 May, [facility] [place] [facility] [address] [id number] [place] [address]- 2859 May, [facility] [place] [facility] [address] [id number] [place] [address]- 2294 May, [facility] [place] [facility] [address] [id number] [place] [address]- 0441 Apr, [facility] [place] [facility] [address] [id number] [place] [address]- 1946 Apr, [facility] [place] [facility] [address] [id number] [place] [address]- 8186 Apr, [facility] [place] [facility] [address] [id number] [place] [address]- 2284 Apr, [facility] [place] [facility] [address] [id number] [place] [address]- 6122 Apr, [facility] [place] [facility] [address] [id number] [place] [address]- 2787 Apr, [facility] [place] [facility] [address] [id number] [place] [address]- 2118 Apr, [facility] [place] [facility] [address] [id number] [place] [address]- 1725 Apr, [facility] [place] [facility] [address] [id number], [place] [address]- 4919 Apr, [facility] [place] [facility] [address] [id number], [place] [address]- 9488 Apr, [facility] [place] [facility] [address] [id number] [place] [address]- 2434 Apr, [facility] [place] [facility] [address] [id number], [place] [address]- 2794 Apr, [facility] [place] [facility] [address] [id number] [place] [address]- 5828 Apr, [facility] [place] [facility] [address] [id number] [place] [address]- 6773 Apr, [facility] [address] [id number] [place] [address]- 9719 Apr, [facility] [place] [facility] [address] [id number] [place] [address]- 6270 Apr, [facility] [place] [facility] [address] [id number] [place] [address]- 3129 Apr, [facility] [place] [facility] [address] [id number] [place] [address]- 7882 Apr, [facility] [place] [facility] [address] [id number] [place] [address]- 0760 Apr, [facility] [place] [facility] [address] [id number] [place] [address]- 5083 Apr, [facility] [address] [id number] [place] [address]- 5867 Mar, [facility] [place] [facility] [address] [id number] [place] [address]- 0362 Mar, [facility] [place] [facility] [address] [id number] [place] [address]- 8322 Mar, [facility] [place] [facility] [address] [id number] [place] [address]- 0406 Mar, [facility] [place] [facility] [address] [id number] [place] [address]- 8088 Mar, [facility] [place] [facility] [address] [id number] [place] [address]- 0843 Mar, [facility] [place] [facility] [address] [id number] [place] [address]- 2871 Mar, [facility] [place] [facility] [address] [id number] [place] [address]- 0088 18 Mar, 2014 [facility] [place] [facility] [address] [id number] [place] 6662 15 Mar, 2014 [facility] [place] [facility] [address] [id number] [place] [address]- 2994 15 Mar, 2014 [facility] [place] [facility] [address] [id number] [place] [address]- 8320 Mar, [facility] [place] [facility] [address] [id number] [place] [address]- 9858 Mar, [facility] [place] [facility] [address] [id number] [place] [address]- 9656 Mar, [facility] [place] [facility] [address] [id number] [place] [address]- 9875 Mar, [facility] [place] [facility] [address] [id number] [place] [address]- 6080 Mar, [facility] [place] [facility] [address] [id number] [place] [address]- 2823 Mar, [facility] [place] [facility] [address] [id number] [place] [address]- 5252 Feb, [facility] [place] [facility] [address] [id number] [place] [address]- 1769 Feb, [facility] [place] [facility] [address] [id number] [place] [address]- 0545 Feb, [facility] [place] [facility] [address] [id number] [place] [address]- 7903 Feb, [facility] [place] [facility] [address] [id number] [place] [address]- 3142 Feb, [facility] [place] [facility] [address] [id number] [place] [address]- 0889 Feb, [facility] [place] [facility] [address] [id number] [place] [address]- 3536 Feb, [facility] [place] [facility] [address] [id number] [place] [address]- 9256 18 Feb, 2014 [facility] [place] [facility] [address] [id number], [place] [address]- 5804 18 Feb, 2014 [facility] [place] [facility] [address] [id number] [place] [address]- 2174 17 Feb, 2014 [facility] [place] [facility] [address] [id number] [place] [address]- 5188 17 Feb, 2014 [facility] [place] [facility] [address] [id number] [place] [address]- 4652 17 Feb, 2014 [facility] [place] [facility] [address] [id number] [place] [address]- 1924 17 Feb, 2014 [facility] [place] [facility] [address] [id number] [place] [address]- 4074 Feb, [facility] [place] [facility] [address] [id number] [place] [address]- 0426 Feb, [facility] [place] [facility] [address] [id number] [place] [address]- 5880 Feb, [facility] [place] [facility] [address] [id number] [place] [address]- 9867 Feb, [facility] [place] [facility] [address] [id number] [place] [address]- 9642 Feb, [facility] [place] [facility] [address] [id number] [place] [address]- 8731 Feb, [facility] [place] [facility] [address] [id number], [place] [address]- 8783 Feb, [facility] [place] [facility] [address] [id number], [place] [address]- 4875 Feb, [facility] [place] [facility] [address] [id number] [place] [address]- 6786 Jan, [facility] [place] [facility] [address] [id number] [place] [address]- 3375 Jan, [facility] [place] [facility] [address] [id number] [place] [address]- 9261 Jan, [facility] [place] [facility] [address] [id number] [place] [address]- 7335 30 Jan, 2013 [facility] [place] [facility] [address] [id number] [place] [address]- 7203 24 Jan, 2014 [facility] [place] [facility] [address] [id number] [place] [address]- 8513 24 Jan, 2014 [facility] [place] [facility] [address] [id number] [place] [address]- 0329 Jan, [facility] [place] [facility] [address] [id number] [place] [address]- 5751 21 Jan, 2014 [facility] [place] [facility] [address] [id number] [place] [address]- 1809 20 Jan, 2014 [facility] [place] [facility] [address] [id number] [place] [address]- 4856 20 Jan, 2014 [facility] [place] [facility] [address] [id number] [place] [address]- 1842 17 Jan, 2014 [facility] [place] [facility] [address] [id number] [place] [address]- 0117 17 Jan, 2014 [facility] [place] [facility] [address] [id number] [place] [address]- 4278 17 Jan, 2014 [facility] [place] [facility] [address] [id number] [place] [address]- 1116 17 Jan, 2014 [facility] [place] [facility] [address] [id number] [place] [address]- 0191 15 Jan, 2014 [facility] [place] [facility] [address] [id number] [place] [address]- 2435 15 Jan, 2014 [facility] [place] [facility] [address] [id number] [place] [address]- 2512 14 Jan, 2014 [facility] [place] [facility] [address] [id number] [place] [address]- 6463 14 Jan, 2013 [facility] [place] [facility] [address] [id number] [place] [address]- 3582 Jan, [facility] [place] [facility] [address] [id number] [place] [address]- 4983 Jan, [facility] [place] [facility] [address] [id number] [place] [address]- 8707 Jan, [facility] [place] [facility] [address] [id number] [place] [address]- 3990 Jan, [facility] [place] [facility] [address] [id number] [place] [address]- 8693 Jan, [facility] [place] [facility] [address] [id number] [place] [address]- 4647 Jan, [facility] [place] [facility] [address] [id number] [place] [address]- 4971 Jan, [facility] [place] [facility] [address] [id number] [place] [address]- 5525 25 Dec, 2013 [facility] [place] [facility] [address] [id number], [place] [address]- 4537 25 Dec, 2013 [facility] [place] [facility] [address] [id number] [place] [address]- 0174 23 Dec, 2013 [facility] [place] [facility] [address] [id number], [place] [address]- 1877 23 Dec, 2013 [facility] [place] [facility] [address] [id number], [place] [address]- 1033 19 Dec, 2013 [facility] [place] [facility] [address] [id number], [place] [address]- 3877 19 Dec, 2013 [facility] [place] [facility] [address] [id number] [place] [address]- 6811 17 Dec, 2013 [facility] [place] [facility] [address] [id number] [place] [address]- 1632 17 Dec, 2013 [facility] [place] [facility] [address] [id number], [place] [address]- 1477 09 Dec, 2013 [facility] [place] [facility] [address] [id number], [place] [address]- 1253 09 Dec, 2013 [facility] [place] [facility] [address] [id number] [place] [address]- 4678 08 Dec, 2013 [facility] [place] [facility] [address] [id number] [place] [address]- 1821 Dec, 2013 [facility] [place] [facility] [address] [id number] [place] [address]- 4189 Dec, 2013 [facility] [place] [facility] [address] [id number] [place] [address] Dec, 2013 [facility] [place] [facility] [address] [id number] [place] [address]60 Dec, 2013 [facility] [place] [facility] [address] [id number] [place] [address]251 Dec, 2013 [facility] [place] [facility] [address] [id number] [place] [address] Dec, 2013 [facility] [place] [facility] [address] [id number] [place] [address]6 Dec, 2013 [facility] [place] [facility] [address] [id number] [place] [address] Nov, [facility] [place] [facility] [address] [id number] [place] [address] 7564 Nov, [facility] [place] [facility] [address] [id number] [place] [address] 0672 Nov, [facility] [place] [facility] [address] [id number] [place] [address] 0956 Nov, [facility] [place] [facility] [address] [id number] [place] [address]- 5273 Nov, [facility] [place] [facility] [address] [id number] [place] [address] 9487 Nov, [facility] [place] [facility] [address] [id number] [place] [address] 3704 Nov, [facility] [place] [facility] [address] [id number] [place] [address] 30[address] Nov, [facility] [place] [facility] [address] [id number] [place] [address] Nov, [facility] [place] [facility] [address] [id number] [place] [address]- 0146 Nov, [facility] [place] [facility] [address] [id number] [place] [address]- 1336 Nov, [facility] [place] [facility] [address] [id number] [place] [address] 4275 Nov, [facility] [place] [facility] [address] [id number] [place] [address] 1079 Oct, [facility] [place] [facility] [address] [id number] [place] [address]- 2270 Oct, [facility] [place] [facility] [address] [id number] [place] [address] 4340 Oct, [facility] [place] [facility] [address] [id number] [place] [address] 5887 Oct, [facility] [place] [facility] [address] [id number] [place] [address] 1893 Oct, [facility] [place] [facility] [address] [id number] [place] [address] 9175 Oct, [facility] [place] [facility] [address] [id number] [place] [address] 9672 Oct, [facility] [place] [facility] [address] [id number] [place] [address] 4092 Oct, [facility] [place] [facility] [address] [id number] [place] [address] 8653 Oct, [facility] [place] [facility] [address] [id number] [place] [address]- 2381 Oct, [facility] [place] [facility] [address] [id number] [place] [address]- [address]308 16 Oct, 2013 [facility] [place] [facility] [address] [id number] [place] [address]- 6428 16 Oct, 2013 [facility] [place] [facility] [address] [id number] [place] [address]- 7946 14 Oct, 2013 [facility] [place] [facility] [address] [id number] [place] [address]- 4510 14 Oct, 2013 [facility] [place] [facility] [address] [id number] [place] [address]- 1148 13 Oct, 2013 [facility] [place] [facility] [address] [id number] [place] [address] 4849 13 Oct, 2013 [facility] [place] [facility] [address] [id number] [place] [address] 0090 Oct, [facility] [place] [facility] [address] [id number] [place] [address] 4712 27 Sep, 2013 [facility] [place] [facility] [address] [id number] [place] [address] 1546 27 Sep, 2013 [facility] [place] [facility] [address] [id number] [place] [address]- [address]150 20 Sep, 2013 [facility] [place] [facility] [address] [id number] [place] [address]- 8197 20 Sep, 2013 [facility] [place] [facility] [address] [id number] [place] [address]- 7973 18 Sep, 2013 [facility] [place] [facility] [address] [id number] [place] [address]- 5781 18 Sep, 2013 [facility] [place] [facility] [address] [id number] [place] [address]- 9637 17 Sep, 2013 [facility] [place] [facility] [address] [id number] [place] [address]- 9514 17 Sep, 2013 [facility] [place] [facility] [address] [id number] [place] [address]- 6301 11 Sep, 2013 [facility] [place] [facility] [address] [id number] [place] [address]- 6431 11 Sep, 2013 [facility] [place] [facility] [address] [id number] [place] [address]- 8843 Sep, [facility] [place] [facility] [address] [id number] [place] [address] 1917 Sep, [facility] [place] [facility] [address] [id number] [place] [address]- 5530 Sep, [facility] [place] [facility] [address] [id number] [place] [address]- 8541 Sep, [facility] [place] [facility] [address] [id number] [place] [address]- 4067 Sep, [facility] [place] [facility] [address] [id number] [place] [address]- 9020 Sep, [facility] [place] [facility] [address] [id number] [place] [address]- 3446 Sep, [facility] [place] [facility] [address] [id number] [place] [address]- 6095 Sep, [facility] [place] [facility] [address] [id number] [place] [address]- 3528 Sep, [facility] [place] [facility] [address] [id number] [place] [address]- 8104 Sep, [facility] [place] [facility] [address] [id number] [place] [address]- 4336 Sep, [facility] [place] [facility] [address] [id number] [place] [address]- 6835 Sep, [facility] [place] [facility] [address] [id number] [place] [address]- 8332 August, [facility] [place] [facility] [address] [id number] [place] [address]- 6297 August, [facility] [place] [facility] [address] [id number] [place] [address]- 7647 August, [facility] [place] [facility] [address] [id number] [place] [address]- 3225 August, [facility] [place] [facility] [address] [id number] [place] [address]- 2511 August, [facility] [place] [facility] [address] [id number] [place] [address]- 1544 August, [facility] [place] [facility] [address] [id number] [place] [address]- 9260 August, [facility] [place] [facility] [address] [id number] [place] [address]- 0630 August, [facility] [place] [facility] [address] [id number] [place] [address]- 7183 August, [facility] [place] [facility] [address] [id number] [place] [address]- 2537 August, [facility] [place] [facility] [address] [id number] [place] [address]- 3481 August, [facility] [place] [facility] [address] [id number] [place] [address]- 2033 Jul, [facility] [place] [facility] [address] [id number] [place] [address]- 9638 Jul, [facility] [place] [facility] [address] [id number] [place] [address]- 8198 Jul, [facility] [place] [facility] [address] [id number] [place] [address]- 0644 Jul, [facility] [place] [facility] [address] [id number] [place] [address]- 2076 Jul, [facility] [place] [facility] [address] [id number] [place] [address]- 3187 Jul, [facility] [place] [facility] [address] [id number] [place] [address]- 3153 Jul, [facility] [place] [facility] [address] [id number] [place] [address] Jul, [facility] [place] [facility] [address] [id number] [place] [address] 4102 Jul, [facility] [place] [facility] [address] [id number] [place] [address]- 4218 18 Jul, 2013 [facility] [place] [facility] [address] [id number] [place] [address]- 1261 16 Jul, 2013 [facility] [place] [facility] [address] [id number] [place] [address]- 3358 Jul, [facility] [place] [facility] [address] [id number] [place] [address]- 9115 Jul, [facility] [place] [facility] [address] [id number] [place] [address]- 8586 Jul, [facility] [place] [facility] [address] [id number] [place] [address]- 6646 Jul, [facility] [place] [facility] [address] [id number] [place] [address]- 5451 Jul, [facility] [place] [facility] [address] [id number] [place] [address]- 8734 Jul, [facility] [place] [facility] [address] [id number] [place] [address]- 9850 Jul, [facility] [place] [facility] [address] [id number] [place] [address]- 1343 Jul, [facility] [place] [facility] [address] [id number] [place] [address]- 1331 Jul, [facility] [place] [facility] [address] [id number] [place] [address]- 1542 Jul, [facility] [place] [facility] [address] [id number] [place] [address]- 5375 Jul, [facility] [place] [facility] [address] [id number] [place] [address]- 9546 Jul, [facility] [place] [facility] [address] [id number] [place] [address]- 9234 Jun, [facility] [address] [id number] [place] [address]- 1535 Jun, [facility] [place] [facility] [address] [id number] [place] [address]- 3651 Jun, [facility] [address] [id number] [place] [address]- 2838 Jun, [facility] [place] [facility] [address] [id number] [place] [address]- 2261 Jun, [facility] [address] [id number] [place] [address]- 1762 Jun, [facility] [address] [id number] [place] [address]- 7590 Jun, [facility] [place] [facility] [address] [id number] [place] [address]- 8443 Jun, [facility] [address] [id number] [place] [address]- 2169 Jun, [facility] [place] [facility] [address] [id number] [place] [address]- 5083 Jun, [facility] [address] [id number] [place] [address]- 8292 Jun, [facility] [place] [facility] [address] [id number] [place] [address]- 7611 Jun, [facility] [place] [facility] [address] [id number] [place] [address]- 5871 May, [facility] [place] [facility] [address] [id number] [place] [address]- 5717 May, [facility] [place] [facility] [address] [id number] [place] [address]- 4910 Apr, [facility] [place] [facility] [address] [id number] [place] [address]- 9453 Apr, [facility] [place] [facility] [address] [id number] [place] [address]- 8432 Apr, [facility] [place] [facility] [address] [id number] [place] [address]- 9870 Apr, [facility] [place] [facility] [address] [id number] [place] [address]- 9742 Apr, [facility] [place] [facility] [address] [id number] [place] [address]- 6040 Apr, [facility] [place] [facility] [address] [id number] [place] [address]- 5178 Apr, [facility] [place] [facility] [address] [id number] [place] [address]- 1351 Apr, [facility] [place] [facility] [address] [id number] [place] [address]- 4940 Apr, [facility] [place] [facility] [address] [id number] [place] [address]- 2990 Apr, [facility] [place] [facility] [address] [id number] [place] [address]- 8512 Apr, [facility] [place] [facility] [address] [id number] [place] [address]- 5910 Mar, [facility] [place] [facility] [address] [id number] [place] [address]- 0128 16 Mar, 2013 [facility] [place] [facility] [address] [id number] [place] [address]- 7702 Mar, [facility] [place] [facility] [address] [id number] [place] [address]- 4763 Mar, [facility] [place] [facility] [address] [id number] [place] [address]- 5040 Feb, [facility] [place] [facility] [address] [id number] [place] [address]35 Feb, [facility] [place] [facility] [address] [id number], [place] [address]- 1765 Feb, [facility] [place] [facility] [address] [id number] [place] [address]- 0806 Feb, [facility] [place] [facility] [address] [id number], [place] [address]- 7401 Feb, [facility] [place] [facility] [address] [id number] [place] [address]- 2064 Feb, [facility] [place] [facility] [address] [id number], [place] [address]- 5113 Feb, [facility] [place] [facility] [address] [id number] [place] [address]- 6668 Feb, [facility] [place] [facility] [address] [id number], [place] [address]- 0254 Feb, [facility] [place] [facility] [address] [id number], [place] [address]- 7054 Feb, [facility] [place] [facility] [address] [id number], [place] [address]- 8841 Feb, [facility] [place] [facility] [address] [id number], [place] [address]- 2410 Jan, [facility] [place] [facility] [address] [id number][place] [address]- 3615 Jan, [facility] [place] [facility] [address] [id number], [place] [address]- 9457 Jan, [facility] [place] [facility] [address] [id number], [place] [address]- 7481 Jan, [facility] [place] [facility] [address] [id number], [place] [address]- 2790 Jan, [facility] [place] [facility] [address] [id number], [place] [address]- 1987 Jan, [facility] [place] [facility] [address] [id number], [place] [address]- 4953 Jan, [facility] [place] [facility] [address] [id number] [place] [address]- 5657 02 Jan, 2013 [facility] [place] [facility] [address] [id number] [place] [address]- 5276 30 Sep, 2012 [facility] [place] [facility] [address] [id number] [place] [address] 2546 25 Sep, 2012 [facility] [place] [facility] [address] [id number] [place] [address] 2546 18 Sep, 2012 [facility] [place] [facility] [address] [id number] [place] [address] 2540 17 Sep, 2012 [facility] [place] [facility] [address] [id number] [place] [address]- 9616 17 Dec, 2012 [facility] [place] [facility] [address] [id number] [place] [address]- 6507 16 Dec, 2012 [facility] [place] [facility] [address] [id number] [place] [address]- 5550 13 Dec, 2012 [facility] [place] [facility] [address] [id number] [place] [address]- 3583 11 Dec, 2012 [facility] [place] [facility] [address] [id number] [place] [address]- 0123 05 Dec, 2012 [facility] [place] [facility] [address] [id number] [place] [address]- 0756 04 Dec, 2012 [facility] [place] [facility] [address] [id number] [place] [address]- 2541 30 Nov, 2012 [facility] [place] [facility] [address] [id number] [place] [address] 2547 29 Nov, 2012 [facility] [place] [facility] [address] [id number] [place] [address] 2542 22 Nov, 2012 [facility] [place] [facility] [address] [id number] [place] [address]- 2542 16 Nov, 2012 [facility] [place] [facility] [address] [id number] [place] [address]- 7167 Nov, [facility] [place] [facility] [address] [id number] [place] [address]- 0561 Nov, [facility] [place] [facility] [address] [id number] [place] [address]- 6561 Nov, [facility] [place] [facility] [address] [id number] [place] [address]- 0233 Oct, [facility] [place] [facility] [address] [id number] [place] [address]- 9533 Oct, [facility] [place] [facility] [address] [id number] [place] [address]- 7246 Oct, [facility] [place] [facility] [address] [id number] [place] [address]- 7026 Oct, [facility] [place] [facility] [address] [id number] [place] [address]- 7641 Oct, [facility] [place] [facility] [address] [id number] [place] [address]- 5259 Oct, [facility] [place] [facility] [address] [id number] [place] [address]- 3974 Sep, [facility] [place] [facility] [address] [id number] [place] [address]- 3422 Sep, [facility] [place] [facility] [address] [id number] [place] [address]- 4164 Sep, [facility] [place] [facility] [address] [id number], [place] [address]- 9749 14 Sep, 2012 [facility] [place] [facility] [address] [id number] [place] [address]- 1493 13 Sep, 2012 [facility] [place] [facility] [address] [id number] [place] [address]- 0744 10 Sep, 2012 [facility] [place] [facility] [address] [id number] [place] [address]- 4434 07 Sep, 2012 [facility] [place] [facility] [address] [id number] [place] [address]- 1703 Sep, [facility] [address] [id number] [place] [address]- 5562 Sep, [facility] [address] [id number] [place] [address]- 4412 August, [facility] [address] [id number] [place] [address]- 2170 August, [facility] [address] [id number] [place] [address]- 5726 August, [facility] [address] [id number] [place] [address]- 6771 August, [facility] [address] [id number] [place] [address]- 9031 August, [facility] [address] [id number] [place] [address]- 7864 August, [facility] [address] [id number] [place] [address]- 9799 August, [facility] [address] [id number] [place] [address]- 8193 August, [facility] [address] [id number] [place] [address]- 8316 Jul, [facility] [address] [id number] [place] [address]- 2868 Jul, [facility] [address] [place] [id number] Jul [facility] [address] [id number] [place] [address]- 1051 Jun, [facility] [address] [id number] [place] [address]- 0604 Jun, [facility] [address] [id number] [place] [address]- 9835 Jun, [facility] [address] [id number] [place] [address]- 5315 Jun, [facility] [address] [id number] [place] [address]- 5445 Jun, [facility] [place] [facility] [address] [id number] [place] [address]- 1326 Jun, [facility] [address] [id number] [place] [address]- 2732 May, [facility] [address] [id number] [place] [address]- 3609 May, [facility] [address] [id number] [place] [address]- 9772 May, [facility] [address] [id number] [place] [address]- 8960 May, [facility] [address] [id number] [place] [address]- 3484 May, [facility] [address] [id number] [place] [address]- 6095 Apr, [facility] [address] [id number] [place] [address]- 0373 Apr, [facility] [address] [id number] [place] [address]- 8358 Apr, [facility] [address] [id number] [place] [address]- 9116 Apr, [facility] [address] [id number] [place] [address]- 3923 Apr, [facility] [place] [facility] [address] [id number] [place] [address]- 0919 Apr, [facility] [place] [facility] [address] [id number] [place] [address]- 5711 Mar, [facility] [address] [id number] [place] [address]- 3687 20 Mar, 2012 [facility] [place] [facility] [address] [id number] [place] [address]- 6821 20 Mar, 2012 [facility] [place] [facility] [address] [id number] [place] [address]- 4576 19 Mar, 2012 [facility] [place] [facility] [address] [id number] [place] [address]- 8396 19 Mar, 2012 [facility] [place] [facility] [address] [id number] [place] 4290 18 Mar, 2012 [facility] [place] [facility] [address] [id number] [place] [address]- 2102 18 Mar, 2012 [facility] [place] [facility] [address] [id number] [place] [address]- 9826 Mar, [facility] [place] [facility] [address] [id number] [place] [address]- 8514 Mar, [facility] [place] [facility] [address] [id number] [place] [address]- 6287 05 Mar, 2012 [facility] [place] [facility] [address] [id number] [place] [address]- 8700 05 Mar, 2012 [facility] [place] [facility] [address] [id number] [place] [address]- 8644 28 Feb, 2012 [facility] [place] [facility] [address] [id number] [place] [address]- 9771 28 Feb, 2012 [facility] [place] [facility] [address] [id number], [place] [address]- 4849 Feb, [facility] [place] [facility] [address] [id number] [place] [address]- 3356 Feb, [facility] [place] [facility] [address] [id number] [place] [address]- 0049 Feb, [facility] [place] [facility] [address] [id number] [place] [address]- 4976 16 Feb, 2012 [facility] [place] [facility] [address] [id number] [place] [address]- 1202 16 Feb, 2012 [facility] [place] [facility] [address] [id number] [place] [address]- 3805 Feb, [facility] [place] [facility] [address] [id number] [place] 8877 Feb, [facility] [place] [facility] [address] [id number] [place] [address]- 8035 Feb, [facility] [place] [facility] [address] [id number] [place] [address]- 0249 Feb, [facility] [place] [facility] [address] [id number] [place] [address]- 2930 Jan, [facility] [place] [facility] [address] [id number] [place] [address]- 6083 Jan, [facility] [place] [facility] [address] [id number] [place] [address]- 1349 Jan, [facility] [place] [facility] [address] [id number] [place] [address]- 4707 Jan, [facility] [place] [facility] [address] [id number] [place] [address]- 2948 Jan, [facility] [place] [facility] [address] [facility] [id number] [place] [address]- 1853 Jan, [facility] [place] [facility] [address] [id number] [place] [address]- 2538 09 Jan, 2012 [facility] [place] [facility] [address] [id number] [place] [address]- 3589 24 Sep2011 [facility] [place] [facility] [address] [id number] [place] [address]- 6783 17 Sep2011 [facility] [place] [facility] [address] [id number] [place] [address]- 8626 13 Sep2011 [facility] [place] [facility] [address] [id number] [place] [address]- 8167 Dec, [facility] [place] [facility] [address] [id number] [place] [address]- 3252 Nov, [facility] [place] [facility] [address] [id number] [place] [address]- 7249 Nov, [facility] [place] [facility] [address] [id number] [place] [address]- 5291 Nov, [facility] [place] [facility] [address] [id number] [place] [address]- 5056 Nov, [facility] [place] [facility] [address] [id number] [place] [address]- 9995 Nov, [facility] [place] [facility] [address] [id number] [place] [address]- 3380 Nov, [facility] [place] [facility] [address] [id number] [place] [address]- 3080 Nov, [facility] [place] [facility] [address] [id number] [place] [address]- 0154 Nov, [facility] [place] [facility] [address] [id number] [place] [address]- 9805 Nov, [facility] [place] [facility] [address] [id number] [place] [address]- 9542 Nov, [facility] [place] [facility] [address] [id number] [place] [address]- 0911 Nov, [facility] [place] [facility] [address] [id number] [place] [address]- 2960 Nov, [facility] [place] [facility] [address] [id number] [place] [address]- 2226 Nov, [facility] [place] [facility] [address] [id number] [place] [address]- 9557 Oct, [facility] [place] [facility] [address] [id number] [place] [address]- 1726 Oct, [facility] [place] [facility] [address] [id number] [place] [address]- 2233 Oct, [facility] [place] [facility] [address] [id number] [place] [address]- 9666 Oct, [facility] [place] [facility] [address] [id number] [place] [address]- 6667 Oct, [facility] [place] [facility] [address] [id number] [place] [address]- 5990 Oct, [facility] [place] [facility] [address] [id number] [place] [address]- 6761 Oct, [facility] [place] [facility] [address] [id number] [place] [address]- 0317 Oct, [facility] [place] [facility] [address] [id number] [place] [address]- 8639 Oct, [facility] [place] [facility] [address] [id number] [place] [address]- 9300 Sep, [facility] [place] [facility] [address] [id number] [place] [address]- 8173 Sep, [facility] [place] [facility] [address] [id number] [place] [address]- 0565 Sep, [facility] [place] [facility] [address] [id number] [place] [address]- 3859 Sep, [facility] [place] [facility] [address] [id number] [place] [address]- 4385 Sep, [facility] [place] [facility] [address] [id number] [place] [address]- 2210 Sep, [facility] [place] [facility] [address] [id number] [place] [address]- 2580 Sep, [facility] [place] [facility] [address] [id number] [place] [address]- 4974 Sep, [facility] [place] [facility] [address] [id number] [place] [address]- 4411 August, [facility] [place] [facility] [address] [id number], [place] [address]- 8792 August, [facility] [id number], [place] [address]- 0211 August, [facility] [id number], [place] [address]- 0757 August, [facility] [id number], [place] [address] August, [facility] [address] [facility] [id number], [place] [address] August, [facility] [id number] [address] August, [facility] [id number], [place] [address] August, [facility] [id number], [place] [address] August, [facility] [id number], [place] [address] August, [facility] [id number] [address] August, [facility] [id number], [place] [address] August, [facility] [id number], [place] [address] Oct, IMMUNIZATIONS No Known Immunizations SOCIAL HISTORY Never Assessed REASON FOR VISIT hip pain PLAN OF CARE VITAL SIGNS MEDICATIONS No [...] Hospitalization History suicidal ideations-[facility] 12/28 Hospitalization History hypoxia--[facility] 02/13/2016 Hospitalization History shortness of breath at june 2016 Hospitalization History Shortness of breath at august 2016 Hospitalization History SOB, chest pain at 12/2016
--- OUTSIDE RECORDS SUMMARY | 2018-02-11 13:04 | XMS REPORT ---
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 [address] 16028- 8157 Jun, Unspecified mood [affective] disorder [address] [address]- 2754 Jun, Type 2 diabetes mellitus with hyperglycemia E11.65 [facility] [id number] [place] [address] 22841- 9094 May, Unspecified mood [affective] disorder [id number] [place] [address] 27877- 4355 May, [facility] [id number] [place] [address] 38582- 8498 May, [facility] [id number] [place] [address] 20357- 9035 May, [facility] [address]00565100[place] [address]- 7016 Apr, [facility] [id number] [place] [address] 76096- 3012 Apr, Unspecified mood [affective] disorder F39 [facility] [id number] [place] [address] 46653- 8790 Apr, [facility] [id number] [place] [address] 45587- 3239 Apr, [facility] [id number] [place] [address] 02820- 1976 Apr, [facility] [id number] [place] [address] 92175- 0894 Apr, Dysuria R30.0 and Well woman exam (no gynecological exam) Z00.00 [facility] [id number] [place] [address] 78193- 5593 Mar, [facility] [id number] [place] [address] 38418- 3948 Mar, [facility] [id number] [place] [address] [id number] Mar, Dental examination Z01.20 [facility] [id number] [place] [address] 73217- 9118 Mar, Chronic diarrhea K52.9 ; Intractable vomiting with nausea, vomiting of unspecified type R11.2 ; Cellulitis, unspecified cellulitis site L03.90 ; Type 2 diabetes mellitus with diabetic polyneuropathy E11.42 and Postinflammatory hyperpigmentation L81.0 [facility] [id number] [place] [address] 81726- 0917 Mar, Unspecified mood [affective] disorder F39 [facility] [id number] [place] [address] 40038- 7812 Mar, Unspecified mood [affective] disorder F39 [facility] [address] [facility] [id number] [address]- 0426 Mar, [facility] [address] [facility] [id number] [place] [address]- 7818 Mar, [facility] [address] [facility] [id number] [place] [address]- 4214 Mar, [facility] [address] [facility] [id number] [place] [address] 06773- 2765 Mar, [facility] [address] [facility] [id number] [address]- 4393 Mar, [facility] [address] [facility] [id number] [place] [address] 63201- 2461 Mar, [facility] [address] [id number] [address]- 8385 Feb, Unspecified mood [affective] disorder F39 [facility] [address] [facility] [id number] [address]- 5686 Feb, [facility] [address] [id number] [address]- 4635 Feb, [facility] [address] [id number] [address]- 8840 Jan, Unspecified mood [affective] disorder F39 [facility] [id number] [id number][place] [id number] Jan, Encounter for dental examination Z01.20 [facility] [address]65100[place] [address]- 3926 Jan, [facility] [address] [id number] [address]- 5089 Jan, [facility] [address] [id number] [address]- 5062 Jan, [facility] [address]100[place] [address]- 7819 Jan, [facility] [address]100[place] [address]- 4476 Jan, [facility] [id number] [place] [address] 59841- 4283 Jan, Abdominal abscess K65.1 and Dental caries K02.9 [facility] [id number] [place] [address] 34002- 4624 Jan, [facility] [id number] [place] [address] 93113- 6079 30 Dec, 2014 Diabetes with neurological manifestations, type II or unspecified type, not stated as uncontrolled 250.60 ; Essential hypertension, benign 401.1 ; Concussion 850.9 and Skin texture changes 782.8 [facility] [id number] [place] [address] 84922- 1202 Dec, [facility] [id number] [place] [address] 39203- 1791 24 Dec, 2014 [facility] [id number] [place] [address] 39267- 6805 Dec, [facility] [id number] [place] [address] 27461- 2969 Dec, [facility] [id number] [place] [address] 21502- 0256 17 Dec, 2014 Affective disorder 296.90 [facility] [id number] [place] [address] 40989- 0573 14 Dec, 2014 [facility] [id number] [place] [address] 71723- 7601 10 Dec, 2014 Affective disorder 296.90 [facility] [id number] [place] [address] 55284- 3944 04 Dec, 2014 [facility] [address] [address]- 2869 04 Dec, 2014 [facility] [address] [address] 2546 Dec, [facility] [address] [address] 2546 Dec, [facility] [address] [address] 2546 Nov, Affective disorder 296.90 [facility] [id number] [place] [address] 13319 2546 Nov, [facility] [address] [address] 2546 Nov, Affective disorder 296.90 [facility] [id number] [place] [address] 29732 2546 Nov, Diarrhea 787.91 [facility] [address] [address] 2546 Nov, [facility] [address] [address] 2546 Nov, Diarrhea 787.91 [facility] [id number] [place] [address] 98894 2546 Nov, Diarrhea 787.91 and Hyperlipidemia 272.4 [facility] [address] [address] 2546 Nov, Diarrhea 787.91 [facility] [address] [address] 2546 Nov, Affective disorder 296.90 [facility] [address] [id number] [address] 2546 Nov, Affective disorder 296.90 [facility] [address] [address] 2546 Nov, Affective disorder 296.90 [facility] [address] [id number] [address] 2546 Nov, [facility] [address] [address]- 2341 Nov, [facility] [address] [address]- 0690 Nov, [facility] [address] [address]- 0695 Nov, Episodic mood disorder 296.90 [facility] [address] [address]- 4738 Nov, [facility] [address] [address]- 2176 Nov, [facility] [id number] [place] [address] 15273- 0897 Nov, [facility] [id number] [address]- 5268 Nov, [facility] [id number] [place] [address] 11413- 3870 Nov, [facility] [address] [address]- 8777 Nov, Lymphedema 457.1 ; Hyperlipidemia 272.4 ; Essential hypertension, benign 401.1 and Numbness of toes 782.0 [facility] [address] [address] Nov, Episodic mood disorder 296.90 [facility] [address] [address] Oct, [facility] [address] [address] Oct, [facility] [address] [address] Oct, [facility] [address] [address] Oct, [facility] [address] [address] 14 Oct, 2014 [facility] [address] [facility] [id number] [place] [address] Oct, [facility] [address] [facility] [id number] [address] Oct, 2014 [facility] [id number] [address] Oct, [facility] [address] [facility] [id number] Oct, Episodic mood disorder 296.90 [facility] [id number] [address] 30 Sep, 2014 [facility] [id number] [address] Sep, [facility] [address] [address] Sep, [facility] [id number] [address] Sep, [facility] [address] [address] Sep, [facility] [id number] [address] Sep, Episodic mood disorder 296.90 [facility] [id number] [address] Sep, Unspecified episodic mood disorder 296.90 [facility] [address] [facility] [id number] [address] Sep, [facility] [address] [facility] [id number] [address] Sep, [facility] [address] [facility] [id number] [address] 16 Sep, 2014 Episodic mood disorder 296.90 [facility] [id number] [address] Sep, [facility] [id number] [address] Sep, [facility] [address] [address] Sep, [facility] [address] [address] Sep, Hematemesis 578.0 and Vomiting 787.03 [facility] [id number] [address] Sep, Episodic mood disorder 296.90 [facility] [id number] [place] [address]- [address] Sep, [facility] [address] [address] Sep, [facility] [id number] [place] [address] Sep, Diabetes mellitus without mention of complication, type II or unspecified type, not stated as uncontrolled 250.00 and Other chronic pain 338.29 [facility] [address]00565[address] [address] Sep, Episodic mood disorder 296.90 [facility] [address]00565[address] [address] Sep, [facility] [address]00565[address] [address] 8029 Sep, Episodic mood disorder 296.90 [facility] [address]00565[address] [address] Sep, [facility] [address]00565[address] [address] August, [facility] [address]00565[address] [address] August, [facility] [id number] [place] [address] August, Episodic mood disorder 296.90 [facility] [address] [id number] [place] [address] August, [facility] [address] [facility] [id number] [place] [address] 14[address] August, Unspecified episodic mood disorder 296.90 [facility] [address] [facility] [id number] [place] [address]- 4800 August, Vomiting 787.03 [facility] [address] [facility] [id number] [place] [address]- 6629 August, [facility] [address] [id number] [place] [address]- 0[address] August, [facility] [id number] [place] [address]- 8857 August, [facility] [address] [id number] [place] [address]- 4440 August, [facility] [address] [id number] [place] [address]- 5630 August, [facility] [address] [id number] [place] [address]- 8217 Jul, [facility] [address] [id number] [place] [address]- 6281 Jul, [facility] [address] [id number] [place] [address]- 6323 Jul, [facility] [address] [id number] [place] 7[address] Jun, [facility] [address] [id number] [place] 4466 Jun, [facility] [address] [id number] [place] [address]- 5997 Jun, [facility] [id number] [place] [address]- 3789 30 Jun, 2014 [facility] [place] [facility] [address] [id number] [place] [address]- 7206 30 Jun, 2014 [facility] [place] [facility] [address] [id number] [place] [address]- 4276 30 Jun, 2014 [facility] [place] [facility] [address] [id number] [place] [address]- 7915 30 Jun, 2014 [facility] [place] [facility] [address] [id number] [place] [address]- 7568 30 Jun, 2014 [facility] [place] [facility] [address] [id number] [place] [address]- 6820 Jun, [facility] [place] [facility] [address] [id number] [place] [address]- 1069 Jun, [facility] [place] [facility] [address] [id number] [place] [address]- 0564 Jun, [facility] [place] [facility] [address] [id number] [place] [address]- 4893 Jun, [facility] [place] [facility] [address] [id number] [place] [address]- 3309 Jun, [facility] [place] [facility] [address] [id number] [place] [address]- 2830 Jun, [facility] [place] [facility] [address] [id number] [place] [address]- 3804 Jun, [facility] [place] [facility] [address] [id number] [place] [address]- 1460 Jun, [facility] [place] [facility] [address] [id number] [place] [address]- 9273 Jun, [facility] [place] [facility] [address] [id number] [place] [address]- 5949 Jun, [facility] [place] [facility] [address] [id number] [place] [address]- 0880 Jun, [facility] [place] [facility] [address] [id number] [place] [address]- 2088 21 Jun, 2014 [facility] [place] [facility] [address] [id number] [place] [address]- 2102 21 Jun, 2014 [facility] [place] [facility] [address] [id number] [place] [address]- 5993 20 Jun, 2014 [facility] [place] [facility] [address] [id number] [place] [address]- 3523 20 Jun, 2014 [facility] [place] [facility] [address] [id number] [place] [address]- 7353 20 Jun, 2014 [facility] [place] [facility] [address] [id number] [place] [address]- 4373 20 Jun, 2014 [facility] [place] [facility] [address] [id number] [place] [address]- 5646 19 Jun, 2014 [facility] [place] [facility] [address] [id number] [place] [address]- 6407 19 Jun, 2014 [facility] [place] [facility] [address] [id number] [place] [address]- 2209 18 Jun, 2014 [facility] [place] [facility] [address] [id number] [place] [address]- 9893 18 Jun, 2014 [facility] [place] [facility] [address] [id number] [place] [address]- 8158 17 Jun, 2014 [facility] [place] [facility] [address] [id number] [place] [address]- 6185 17 Jun, 2014 [facility] [place] [facility] [address] [id number] [place] [address]- 1349 16 Jun, 2014 [facility] [place] [facility] [address] [id number] [place] [address]- 0579 16 Jun, 2014 [facility] [place] [facility] [address] [id number] [place] [address]- 3263 16 Jun, 2014 [facility] [place] [facility] [address] [id number] [place] [address]- 3480 Jun, [facility] [place] [facility] [address] [id number] [place] [address]- 7166 16 Jun, 2014 [facility] [place] [facility] [address] [id number] [place] [address]- 3306 16 Jun, 2014 [facility] [place] [facility] [address] [id number] [place] [address]- 1380 Jun, [facility] [place] [facility] [address] [id number] [place] [address]- 6440 Jun, [facility] [place] [facility] [address] [id number] [place] [address]- 7068 Jun, [facility] [place] [facility] [address] [id number] [place] [address]- 0942 Jun, [facility] [place] [facility] [address] [id number] [place] [address]- 8174 Jun, [facility] [place] [facility] [address] [id number] [place] [address]- 2114 Jun, [facility] [place] [facility] [address] [id number] [place] [address]- 6794 Jun, [facility] [place] [facility] [address] [id number] [place] [address]- 4342 Jun, [facility] [place] [facility] [address] [id number] [place] [address]- 0196 Jun, [facility] [place] [facility] [address] [id number] [place] [address]- 9928 Jun, [facility] [place] [facility] [address] [id number] [place] [address]- 8844 Jun, [facility] [place] [facility] [address] [id number] [place] [address]- 3886 Jun, 2014 [facility] [place] [facility] [address] [id number] [place] [address]- 1346 Jun, 2014 [facility] [place] [facility] [address] [id number] [place] [address]- 1187 Jun, 2014 [facility] [place] [facility] [address] [id number] [place] [address]- 4071 Jun, [facility] [place] [facility] [address] [id number] [place] [address]- 6999 Jun, 2014 [facility] [place] [facility] [address] [id number] [place] [address]- 7908 Jun, 2014 [facility] [place] [facility] [address] [facility] [id number] [place] [address]- 6475 Jun, [facility] [place] [facility] [address] [id number] [place] [address]- 4775 Jun, [facility] [place] [facility] [address] [facility] [id number] [place] [address]- 4476 Jun, [facility] [place] [facility] [address] [facility] [id number] [place] [address]- 9428 May, 2014 [facility] [place] [facility] [address] [facility] [id number] [place] [address]- 5735 May, 2014 [facility] [place] [facility] [address] [facility] [id number] [place] [address]- 5661 May, 2014 [facility] [place] [facility] [address] [facility] [id number] [place] [address]- 2528 May, 2014 [facility] [place] [facility] [address] [facility] [id number] [address]- 2306 May, 2014 [facility] [place] [facility] [address] [facility] [id number] [place] [address]- 4887 May, 2014 [facility] [place] [facility] [address] [facility] [id number] [place] [address]- 5576 May, 2014 [facility] [place] [facility] [address] [facility] [id number] [place] [address]- 6628 May, 2014 [facility] [place] [facility] [address] [id number] [address]- 7483 20 May, 2014 [facility] [place] [facility] [address] [id number] [place] [address]- 7956 20 May, 2014 [facility] [place] [facility] [address] [facility] [id number] [place] [address]- 6176 18 May, 2014 [facility] [place] [facility] [address] [facility] [id number] [place] [address]- 0271 18 May, 2014 [facility] [place] [facility] [address] [facility] [id number] [place] [address]- 5422 13 May, 2014 [facility] [place] [facility] [address] [facility] [id number] [place] [address]- 5509 13 May, 2014 [facility] [place] [facility] [address] [id number] [place] [address]- 4980 11 May, 2014 [facility] [place] [facility] [address] [id number] [place] [address]- 0976 11 May, 2014 [facility] [place] [facility] [address] [facility] [id number] [place] [address]- 9710 11 May, 2014 [facility] [place] [facility] [address] [id number] [place] [address]- 0056 May, 2014 [facility] [place] [facility] [address] [id number] [address]- 5654 09 May, 2014 [facility] [place] [facility] [address] [facility] [id number] [place] [address]- 254 May, 2014 [facility] [place] [facility] [address] [facility] [id number] [address]- 254 05 May, 2014 [facility] [place] [facility] [address] [facility] [id number] [place] [address]- 7195 May, 2014 [facility] [place] [facility] [address] [facility] [id number] [address]- 2541 05 May, 2014 [facility] [place] [facility] [address] [facility] [id number] [address]- 9268 May, [facility] [place] [facility] [address] [id number] [place] [address]- 2039 May, [facility] [place] [facility] [address] [id number] [place] 5091 May, [facility] [place] [facility] [address] [id number] [place] [address]- 6814 May, [facility] [place] [facility] [address] [id number] [place] [address]- 2970 Apr, [facility] [place] [facility] [address] [id number] [place] [address]- 8119 Apr, [facility] [place] [facility] [address] [id number] [place] [address]- 7208 Apr, [facility] [place] [facility] [address] [id number] [place] [address]- 1831 Apr, [facility] [place] [facility] [address] [id number] [address]- 7861 Apr, [facility] [place] [facility] [address] [id number] [address]- 3867 Apr, [facility] [place] [facility] [address] [id number] [place] [address]- 7134 Apr, [facility] [place] [facility] [address] [id number] [address]- 4923 Apr, [facility] [place] [facility] [address] [id number] [place] [address]- 7953 Apr, [facility] [place] [facility] [address] [id number] [address]- 8685 Apr, [facility] [place] [facility] [address] [id number] [address]- 0027 Apr, [facility] [place] [facility] [address] [id number] [place] [address]- 1078 Apr, [facility] [place] [facility] [address] [id number] [place] [address]- 1505 Apr, [facility] [address] [id number] [place] [address]- 9411 Apr, [facility] [address] [id number] [place] [address]- 3493 Apr, [facility] [address] [id number] [place] [address]- 9089 Apr, [facility] [address] [id number] [place] [address]- 4643 Apr, [facility] [address] [id number] [place] [address]- 6350 Apr, [facility] [address] [id number] [place] [address]- 8484 Apr, [facility] [address] [id number] [place] [address]- 7656 Apr, [facility] [address] [id number] [place] [address]- 0041 Mar, [facility] [address] [id number] [place] [address]- 8985 Mar, [facility] [address] [id number] [place] [address]- 0780 Mar, [facility] [address] [id number] [place] [address]- 9474 Mar, [facility] [address] [id number] [place] [address]- 8626 Mar, [facility] [place] [facility] [address] [id number] [place] [address]- 9730 Mar, [facility] [address] [id number] [place] [address]- 5716 Mar, [facility] [place] [facility] [address] [id number] [id number] 9972 Mar, [facility] [place] [facility] [address] [id number] [place] [address]- 5001 15 Mar, 2014 [facility] [place] [facility] [address] [id number] [place] [address]- 4458 Mar, [facility] [place] [facility] [address] [id number] [place] [address]- 2770 Mar, [facility] [place] [facility] [address] [id number] [place] [address]- 0799 Mar, [facility] [place] [facility] [address] [id number] [place] [address]- 1244 Mar, [facility] [place] [facility] [address] [id number] [place] [address]- 2692 Mar, [facility] [place] [facility] [address] [id number] [place] [address]- 1430 Mar, [facility] [place] [facility] [address] [id number] [place] [address]- 7316 Mar, [facility] [place] [facility] [address] [id number] [place] [address]- 4633 Feb, [facility] [place] [facility] [address] [id number] [place] [address]- 3944 Feb, [facility] [place] [facility] [address] [id number] [place] [address]- 4702 Feb, [facility] [place] [facility] [address] [id number] [place] [address]- 1195 Feb, [facility] [place] [facility] [address] [id number] [place] [address]- 4743 Feb, [facility] [place] [facility] [address] [id number] [place] [address]- 5596 Feb, [facility] [place] [facility] [address] [id number] [place] [address]- 2741 Feb, [facility] [place] [facility] [address] [id number] [place] [address]- 2775 18 Feb, 2014 [facility] [place] [facility] [address] [id number] [place] [address]- 9135 18 Feb, 2014 [facility] [place] [facility] [address] [id number] [place] [address]- 0848 17 Feb, 2014 [facility] [place] [facility] [address] [id number] [place] [address]- 3052 17 Feb, 2014 [facility] [place] [facility] [address] [id number] [place] [address]- 1019 17 Feb, 2014 [facility] [place] [facility] [address] [id number] [place] [address]- 5426 17 Feb, 2014 [facility] [place] [facility] [address] [id number] [place] [address]- 0761 14 Feb, 2014 [facility] [place] [facility] [address] [id number] [place] [address]- 2334 14 Feb, 2014 [facility] [place] [facility] [address] [id number] [place] [address]- 0348 14 Feb, 2014 [facility] [place] [facility] [address] [id number] [place] [address]- 5957 14 Feb, 2014 [facility] [place] [facility] [address] [id number] [place] [address]- 6355 Feb, [facility] [place] [facility] [address] [id number] [place] [address]- 8473 Feb, [facility] [place] [facility] [address] [id number] [address]- 1361 Feb, [facility] [place] [facility] [address] [id number] [place] [address]- 8301 Feb, [facility] [place] [facility] [address] [id number] [place] [address]- 6551 Jan, [facility] [place] [facility] [address] [id number] [place] [address]- 4814 Jan, [facility] [place] [facility] [address] [id number] [place] [address]- 2574 30 Jan, 2013 [facility] [place] [facility] [address] [id number] [place] [address]- 2429 30 Jan, 2014 [facility] [place] [facility] [address] [id number] [place] [address]- 4287 24 Jan, 2014 [facility] [place] [facility] [address] [id number] [place] [address]- 2769 24 Jan, 2014 [facility] [place] [facility] [address] [id number] [place] [address]- 7885 Jan, [facility] [place] [facility] [address] [id number] [place] [address]- 8498 Jan, [facility] [place] [facility] [address] [id number] [place] [address]- 2586 Jan, [facility] [place] [facility] [address] [id number] [place] [address]- 4926 Jan, [facility] [place] [facility] [address] [id number] [place] [address]- 9760 17 Jan, 2014 [facility] [place] [facility] [address] [id number] [place] [address]- 7187 17 Jan, 2013 [facility] [place] [facility] [address] [id number] [place] [address]- 3481 17 Jan, 2014 [facility] [place] [facility] [address] [id number] [place] [address]- 8274 17 Jan, 2013 [facility] [place] [facility] [address] [id number] [place] [address]- 1162 15 Jan, 2014 [facility] [place] [facility] [address] [id number] [place] [address]- 5348 15 Jan, 2013 [facility] [place] [facility] [address] [id number] [place] [address] 4028 14 Jan, 2014 [facility] [place] [facility] [address] [id number] [place] [address] 2064 14 Jan, 2014 [facility] [place] [facility] [address] [id number] [place] [address] 13 Jan, 2014 [facility] [place] [facility] [address] [id number] [place] [address] 13 Jan, 2014 [facility] [place] [facility] [address] [id number] [place] [address] Jan, [facility] [place] [facility] [address] [id number] [place] [address] Jan, [facility] [place] [facility] [address] [id number] [place] [address] 9[address] Jan, [facility] [place] [facility] [address] [id number] [place] [address] Jan, [facility] [place] [facility] [address] [id number] [place] [address] Jan, [facility] [place] [facility] [address] [id number] [address] 25 Dec, 2013 [facility] [place] [facility] [address] [id number] [place] [address]- 5702 25 Dec, 2013 [facility] [place] [facility] [address] [id number] [address] 23 Dec, 2013 [facility] [place] [facility] [address] [id number] [address] 23 Sep, 2013 [facility] [place] [facility] [address] [id number] [address] 2548 19 Sep, 2013 [facility] [place] [facility] [address] [id number] [place] [address]- 2548 19 Dec, 2013 [facility] [place] [facility] [address] [id number] [address] 17 Dec, 2013 [facility] [place] [facility] [address] [id number] [address]41 17 Dec, 2013 [facility] [place] [facility] [address] [id number] [place] [address]- 6853 09 Sep, 2013 [facility] [place] [facility] [address] [id number] [place] [address] 2546 09 Sep, 2013 [facility] [place] [facility] [address] [id number] [place] [address] 2546 08 Dec, 2013 [facility] [place] [facility] [address] [id number] [place] [address] 2549 08 Sep, 2013 [facility] [place] [facility] [address] [id number] [place] [address] 2542 Sep, 2013 [facility] [place] [facility] [address] [id number] [place] [address]- 6160 04 Dec, 2013 [facility] [place] [facility] [address] [id number] [place] [address]- 6426 Dec, 2013 [facility] [place] [facility] [address] [id number] [place] [address]- 6295 Dec, 2013 [facility] [place] [facility] [address] [id number] [place] [address]- 2774 Dec, 2013 [facility] [place] [facility] [address] [id number] [place] [address]- 6102 Dec, 2013 [facility] [place] [facility] [address] [id number] [place] [address]- 1446 Nov, [facility] [place] [facility] [address] [id number] [place] [address]- 2540 Nov, [facility] [place] [facility] [address] [id number] [place] [address]- 2549 Nov, [facility] [place] [facility] [address] [id number] [place] [address]- 9707 Nov, [facility] [place] [facility] [address] [id number] [place] [address]- 6828 Nov, [facility] [place] [facility] [address] [id number] [place] [address]- 9885 Nov, [facility] [place] [facility] [address] [id number] [place] [address]- 7161 Nov, [facility] [place] [facility] [address] [id number] [place] [address]- 8936 Nov, [facility] [place] [facility] [address] [id number] [place] [address]- 1834 Nov, [facility] [place] [facility] [address] [id number] [place] [address]- 3648 Nov, [facility] [place] [facility] [address] [id number] [place] [address]- 9583 Nov, [facility] [place] [facility] [address] [id number] [place] [address]- 8718 Nov, [facility] [place] [facility] [address] [id number] [place] [address] Oct, [facility] [place] [facility] [address] [id number] [place] [address]- 3431 Oct, [facility] [place] [facility] [address] [id number] [place] [address]- 6169 Oct, [facility] [place] [facility] [address] [id number] [place] [address]- 2878 Oct, [facility] [place] [facility] [address] [id number] [place] [address]- 3591 Oct, [facility] [place] [facility] [address] [id number] [place] [address]- 1536 Oct, [facility] [place] [facility] [address] [id number] [place] [address]- 0231 Oct, [facility] [place] [facility] [address] [id number] [place] [address]- 2433 Oct, [facility] [place] [facility] [address] [id number] [place] [address]- 2861 Oct, [facility] [place] [facility] [address] [id number] [place] [address]- 2979 22 Oct, 2013 [facility] [place] [facility] [address] [id number] [place] [address]- 3138 16 Oct, 2013 [facility] [place] [facility] [address] [id number] [place] [address]- 0834 16 Oct, 2013 [facility] [place] [facility] [address] [id number] [place] [address]- 3804 14 Oct, 2013 [facility] [place] [facility] [address] [id number] [place] [address]- 2727 14 Oct, 2013 [facility] [place] [facility] [address] [id number] [place] [address]- 8495 Oct, [facility] [place] [facility] [address] [id number] [place] [address]- 0651 Oct, [facility] [place] [facility] [address] [id number] [place] [address]- 5621 Oct, [facility] [place] [facility] [address] [id number] [place] [address]- 3945 27 Sep, 2013 [facility] [place] [facility] [address] [id number] [place] [address]- 4020 27 Sep, 2013 [facility] [place] [facility] [address] [id number] [place] [address]- 7667 Sep, [facility] [place] [facility] [address] [id number] [place] [address]- 4467 Sep, [facility] [place] [facility] [address] [id number] [place] [address]- 3644 18 Sep, 2013 [facility] [place] [facility] [address] [id number] [place] [address]- 4738 18 Sep, 2013 [facility] [place] [facility] [address] [id number] [place] [address]- 7858 17 Sep, 2013 [facility] [place] [facility] [address] [id number] [place] [address] 17 Sep, 2013 [facility] [place] [facility] [address] [id number] [place] [address] 04[address] Sep, [facility] [place] [facility] [address] [id number] [place] [address] 0271 Sep, [facility] [place] [facility] [address] [id number] [place] [address] 8210 Sep, [facility] [place] [facility] [address] [id number] [place] [address]- 4752 Sep, [facility] [place] [facility] [address] [id number] [place] [address] 3796 Sep, [facility] [place] [facility] [address] [id number] [place] [address]- 7178 Sep, [facility] [place] [facility] [address] [id number] [place] [address] 9899 Sep, [facility] [place] [facility] [address] [id number] [place] [address]- 4240 Sep, [facility] [place] [facility] [address] [id number] [place] [address]- 9767 Sep, [facility] [place] [facility] [address] [id number] [place] [address]- 7866 Sep, [facility] [place] [facility] [address] [id number] [place] [address]- 6607 Sep, [facility] [place] [facility] [address] [id number] [place] [address]- 5107 Sep, [facility] [place] [facility] [address] [id number] [place] [address]- 3155 Sep, [facility] [place] [facility] [address] [id number] [place] [address]- 2193 Sep, [facility] [place] [facility] [address] [id number] [place] [address]- 4370 August, [facility] [place] [facility] [address] [id number] [place] [address]- 8429 August, [facility] [place] [facility] [address] [id number] [place] [address]- 0932 August, [facility] [place] [facility] [address] [id number] [place] [address]- 4495 August, [facility] [place] [facility] [address] [id number] [place] [address]- 3973 August, [facility] [place] [facility] [address] [id number] [place] [address]- 4738 August, [facility] [place] [facility] [address] [id number] [place] [address]- 1415 August, [facility] [place] [facility] [address] [id number] [place] [address]- 1779 August, [facility] [place] [facility] [address] [id number] [place] [address]- 7667 August, [facility] [place] [facility] [address] [id number] [place] [address]- 1400 August, [facility] [place] [facility] [address] [id number] [place] [address]- 5058 August, [facility] [place] [facility] [address] [id number] [place] [address]- 4496 Jul, [facility] [place] [facility] [address] [id number] [place] [address]- 1768 Jul, [facility] [place] [facility] [address] [id number] [place] [address]- 5328 Jul, [facility] [place] [facility] [address] [id number] [place] [address]- 5658 Jul, [facility] [place] [facility] [address] [id number] [place] [address]- 5677 Jul, [facility] [place] [facility] [address] [id number] [place] [address]- 1117 Jul, [facility] [place] [facility] [address] [id number] [place] [address]- 4498 Jul, [facility] [place] [facility] [address] [id number] [place] [address]- 4862 Jul, [facility] [place] [facility] [address] [id number] [place] [address]- 4125 18 Jul, 2013 [facility] [place] [facility] [address] [id number] [place] [address]- 1971 18 Jul, 2013 [facility] [place] [facility] [address] [id number] [place] [address]- 6296 16 Jul, 2013 [facility] [place] [facility] [address] [id number] [place] [address]- 9508 Jul, [facility] [place] [facility] [address] [id number] [place] [address]- 3432 Jul, [facility] [place] [facility] [address] [id number] [place] [address]- 6026 Jul, [facility] [place] [facility] [address] [id number] [place] [address]- 3244 Jul, [facility] [place] [facility] [address] [id number] [place] [address]- 0613 Jul, [facility] [place] [facility] [address] [id number] [place] [address]- 7176 Jul, [facility] [place] [facility] [address] [id number] [place] [address]- 4745 Jul, [facility] [place] [facility] [address] [id number] [place] [address]- 2433 Jul, [facility] [place] [facility] [address] [id number] [place] [address]- 3536 Jul, [facility] [place] [facility] [address] [id number] [place] [address]- 0879 Jul, [facility] [place] [facility] [address] [id number] [place] [address]- 6236 Jul, [facility] [place] [facility] [address] [id number] [place] [address]- 6089 Jul, [facility] [place] [facility] [address] [id number] [place] [address]- 4550 Jun, [facility] [place] [facility] [address] [id number] [place] [address]- 6741 Jun, [facility] [place] [facility] [address] [id number] [place] [address]- 2545 Jun, [facility] [place] [facility] [address] [id number] [place] [address]- 1683 Jun, [facility] [place] [facility] [address] [id number] [place] [address]- 2259 Jun, [facility] [place] [facility] [address] [id number] [place] [address]- 0594 Jun, [facility] [place] [facility] [address] [id number] [place] [address]- 1705 Jun, [facility] [place] [facility] [address] [id number] [place] [address]- 9043 Jun, [facility] [place] [facility] [address] [id number] [place] [address]- 6099 Jun, [facility] [place] [facility] [address] [id number] [place] [address]- 3189 Jun, [facility] [place] [facility] [address] [id number] [place] [address]- 6062 Jun, [facility] [place] [facility] [address] [id number] [place] [address]- 1104 Jun, [facility] [place] [facility] [address] [id number] [place] [address]- 0760 May, [facility] [place] [facility] [address] [id number] [place] [address]- 6559 May, [facility] [place] [facility] [address] [id number] [place] [address]- 1692 Apr, [facility] [place] [facility] [address] [id number] [place] [address]- 8555 Apr, [facility] [place] [facility] [address] [id number] [place] [address]- 3223 Apr, [facility] [place] [facility] [address] [id number] [place] [address]- 7008 Apr, [facility] [place] [facility] [address] [id number] [place] [address]- 3745 Apr, [facility] [place] [facility] [address] [id number] [place] [address]- 5116 Apr, [facility] [place] [facility] [address] [id number] [place] [address]- 4827 Apr, [facility] [place] [facility] [address] [id number] [place] [address]- 8930 Apr, [facility] [place] [facility] [address] [id number] [place] [address]- 2320 Apr, [facility] [place] [facility] [address] [id number] [place] [address]- 4535 Apr, [facility] [place] [facility] [address] [id number] [place] [address]- 8054 Apr, [facility] [place] [facility] [address] [id number] [place] [address]- 1831 16 Mar, 2013 [facility] [place] [facility] [address] [id number] [place] [address]- 9706 Mar, [facility] [place] [facility] [address] [id number] [place] [address]- 8557 Mar, [facility] [place] [facility] [address] [id number] [place] [address]- 1812 Mar, [facility] [place] [facility] [address] [id number] [place] [address]- 1558 Feb, [facility] [place] [facility] [address] [id number] [place] [address]- 0593 Feb, [facility] [address] [id number] [place] [address]- 6203 Feb, [facility] [place] [facility] [address] [id number] [place] [address]- 6337 Feb, [facility] [address] [id number] [place] [address]- 7705 Feb, [facility] [place] [facility] [address] [id number] [place] [address]- 0543 Feb, [facility] [address] [id number] [place] [address]- 3081 Feb, [facility] [address] [id number] [place] [address]- 5413 Feb, [facility] [place] [facility] [address] [id number] [place] [address]- 0532 Feb, [facility] [address] [id number] [place] [address]- 6206 Feb, [facility] [place] [facility] [address] [id number] [place] [address]- 4524 Feb, [facility] [address] [facility] [id number] [place] [address]- 4546 Jan, [facility] [place] [facility] [address] [id number] [place] [address]- 5112 Jan, [facility] [place] [facility] [address] [id number] [address]- 8624 Jan, [facility] [place] [facility] [address] [id number] [place] [address]- 0659 Jan, [facility] [place] [facility] [address] [facility] [id number] [place] [address]- 4847 Jan, [facility] [place] [facility] [address] [id number] [place] [address]- 9574 Jan, [facility] [place] [facility] [address] [id number] [place] [address]- 9204 03 Jan, 2013 [facility] [place] [facility] [address] [id number] [place] [address]- 0026 02 Jan, 2013 [facility] [place] [facility] [address] [id number] [place] [address]- 3495 30 Dec, 2012 [facility] [place] [facility] [address] [id number] [place] [address]- 7066 25 Dec, 2012 [facility] [place] [facility] [address] [id number] [place] [address]- 2808 18 Dec, 2012 [facility] [place] [facility] [address] [id number] [place] [address]- 9851 17 Dec, 2012 [facility] [place] [facility] [address] [id number] [place] [address]- 8302 17 Dec, 2012 [facility] [place] [facility] [address] [id number] [place] [address]- 5388 16 Dec, 2012 [facility] [place] [facility] [address] [id number] [place] [address]- 4676 13 Dec, 2012 [facility] [place] [facility] [address] [id number] [address]- 9326 11 Dec, 2012 [facility] [place] [facility] [address] [id number] [place] [address]- 2283 05 Dec, 2012 [facility] [place] [facility] [address] [id number] [address]- 7687 04 Dec, 2012 [facility] [place] [facility] [address] [id number] [place] [address]- 9759 30 Nov, 2012 [facility] [place] [facility] [address] [id number] [place] [address]- 7642 Nov, [facility] [place] [facility] [address] [id number] [address]- 7354 Nov, [facility] [place] [facility] [address] [id number] [address]- 7081 16 Nov, 2012 [facility] [place] [facility] [address] [id number] [place] [address]- 8882 14 Nov, 2012 [facility] [place] [facility] [address] [id number] [place] [address]- 5496 Nov, [facility] [place] [facility] [address] [id number] [place] [address]- 3603 05 Nov, 2012 [facility] [place] [facility] [address] [id number] [place] [address]- 7660 29 Oct, 2012 [facility] [place] [facility] [address] [id number] [place] [address]- 2424 Oct, [facility] [place] [facility] [address] [id number] [place] [address]- 9800 Oct, [facility] [place] [facility] [address] [id number] [place] [address]- 2911 Oct, [facility] [place] [facility] [address] [id number] [place] [address]- 2402 15 Oct, 2012 [facility] [place] [facility] [address] [id number] [place] [address]- 7128 Oct, [facility] [place] [facility] [address] [id number] [place] [address]- 1908 Sep, [facility] [place] [facility] [address] [id number] [place] [address]- 7163 28 Sep, 2012 [facility] [place] [facility] [address] [id number] [place] [address]- 7108 27 Sep, 2012 [facility] [place] [facility] [address] [id number] [place] [address]- 7224 14 Sep, 2012 [facility] [place] [facility] [address] [id number] [place] [address]- 5478 13 Sep, 2012 [facility] [place] [facility] [address] [id number] [place] [address]- 0042 10 Sep, 2012 [facility] [place] [facility] [address] [id number] [place] [address]- 6576 Sep[facility] [address] [id number] [place] [address]- 4534 Sep, [facility] [address] [id number] [place] [address]- 9516 Sep, [facility] [address] [id number] [place] [address]- 9857 August, [facility] [address] [id number] [place] [address]- 2842 August, [facility] [address] [id number] [place] [address]- 8776 August, [facility] [address] [id number] [place] [address]- 2243 August, [facility] [address] [id number] [place] [address]- 0838 August, [facility] [address] [id number] [place] [address]- 7893 August, [facility] [address] [id number] [place] [address]- 4756 August, [facility] [address] [id number] [place] [address]- 0547 August, [facility] [address] [id number] [place] [address]- 0558 Jul, [facility] [address] [id number] [place] [address]- 8999 Jul, [facility] [address] [place] [id number] Jul [facility] [address] [id number] [place] [address]- 1946 Jun, [facility] [address] [id number] [place] [address]- 7848 Jun, [facility] [address] [id number] [place] [address]- 0772 Jun, [facility] [place] [facility] [address] [id number] [place] [address]- 0581 Jun, [facility] [place] [facility] [address] [id number] [place] [address]- 6790 Jun, [facility] [place] [facility] [address] [id number] [place] [address]- 2312 Jun, [facility] [place] [facility] [address] [id number] [place] [address]- 3508 May, [facility] [place] [facility] [address] [id number] [place] [address]- 6598 May, [facility] [place] [facility] [address] [id number] [place] [address]- 3145 May, [facility] [place] [facility] [address] [id number] [place] [address]- 4554 May, [facility] [place] [facility] [address] [id number] [place] [address]- 7221 May, [facility] [place] [facility] [address] [id number] [place] [address]- 1043 Apr, [facility] [place] [facility] [address] [id number] [place] [address]- 9304 Apr, [facility] [place] [facility] [address] [id number] [place] [address]- 2420 Apr, [facility] [place] [facility] [address] [id number] [place] [address]- 3261 Apr, [facility] [place] [facility] [address] [id number] [place] [address]- 6370 Apr, [facility] [place] [facility] [address] [id number] [place] [address]- 6065 Apr, [facility] [place] [facility] [address] [id number] [address]- 7530 26 Mar, 2012 [facility] [place] [facility] [address] [id number] [place] [address]- 9706 20 Mar, 2012 [facility] [place] [facility] [address] [id number] [place] [address]- 2406 Mar, [facility] [place] [facility] [address] [facility] [id number] [place] [address]- 9046 Mar, [facility] [place] [facility] [address] [id number] [place] [address]- 6603 19 Mar, 2012 [facility] [place] [facility] [address] [id number] [place] [address]- 5394 18 Mar, 2012 [facility] [place] [facility] [address] [id number] [place] [address]- 3766 18 Mar, 2012 [facility] [id number] [place] [address]- 0906 Mar, [facility] [place] [facility] [address] [id number] [place] [address]- 4925 Mar, [facility] [place] [facility] [address] [id number] [place] [address]- 8265 05 Mar, 2012 [facility] [place] [facility] [address] [id number] [place] [address]- 7750 05 Mar, 2012 [facility] [place] [facility] [address] [id number] [place] [address]- 5965 Feb, [facility] [place] [facility] [address] [id number] [place] [address]- 6865 Feb, [facility] [place] [facility] [address] [id number] [place] [address]- 7826 Feb, [facility] [place] [facility] [address] [facility] [id number] [place] [address]- 7189 Feb, [facility] [place] [facility] [address] [id number] [place] [address]- 2094 Feb, [facility] [place] [facility] [address] [id number] [place] [address] 2549 16 Feb, 2012 [facility] [place] [facility] [address] [id number] [place] [address]- 9240 16 Feb, 2012 [facility] [place] [facility] [address] [id number] [place] [address]- 2546 Feb, [facility] [place] [facility] [address] [id number] [place] [address] 2546 Feb, [facility] [place] [facility] [address] [id number] [place] [address]- 6573 Feb, [facility] [place] [facility] [address] [id number] [place] [address]- 4076 Feb, [facility] [place] [facility] [address] [id number] [place] [address]- 7305 Jan, [facility] [place] [facility] [address] [id number] [place] 2868 Jan, [facility] [place] [facility] [address] [id number] [place] [address]- 9632 Jan, [facility] [place] [facility] [address] [id number] [place] [address]- 1007 Jan, [facility] [place] [facility] [address] [facility] [id number] [place] [address]- 3604 Jan, [facility] [place] [facility] [address] [id number] [place]41 Jan, [facility] [place] [facility] [address] [id number] [place] [address]- 5899 09 Jan, 2012 [facility] [place] [facility] [address] [id number] [place] [address]- 7086 24 Dec, 2011 [facility] [place] [facility] [address] [id number] [place] [address]- 2546 17 Sep2011 [facility] [place] [facility] [address] [id number] [place] [address] Dec, [facility] [place] [facility] [address] [id number] [place] [address] Dec, [facility] [place] [facility] [address] [id number] [place] [address] Nov, [facility] [place] [facility] [address] [id number] [place] [address] Nov, [facility] [place] [facility] [address] [id number] [place] [address] Nov, [facility] [place] [facility] [address] [id number] [place] [address] 15 Nov, 2011 [facility] [place] [facility] [address] [id number] [place] [address] Nov, [facility] [place] [facility] [address] [id number] [place] [address] Nov, [facility] [place] [facility] [address] [id number] [place] [address] Nov, [facility] [place] [facility] [address] [id number] [place] [address] Nov, [facility] [place] [facility] [address] [id number] [place] [address] Nov, [facility] [place] [facility] [address] [id number] [place] [address] Nov, [facility] [place] [facility] [address] [id number] [place] [address] Nov, [facility] [place] [facility] [address] [id number] [place] [address] Nov, [facility] [place] [facility] [address] [id number] [place] [address] Nov, [facility] [place] [facility] [address] [id number] [place] [address] Oct, [facility] [place] [facility] [address] [id number] [place] [address] Oct, 2011 [facility] [place] [facility] [address] [id number] [place] [address] Oct, 2011 [facility] [place] [facility] [address] [id number] [place] [address] Oct, 2011 [facility] [place] [facility] [address] [id number] [place] [address] Oct, 2011 [facility] [place] [facility] [address] [id number] [place] [address] Oct, [facility] [place] [facility] [address] [id number] [place] [address] Oct, [facility] [place] [facility] [address] [id number] [place] [address] Oct, [facility] [place] [facility] [address] [id number] [place] [address] Oct, [facility] [place] [facility] [address] [id number] [place] [address] Sep, [facility] [place] [facility] [address] [id number] [place] [address] Sep, [facility] [place] [facility] [address] [id number] [place] [address] Sep, [facility] [place] [facility] [address] [id number] [place] [address] Sep, [facility] [place] [facility] [address] [id number] [place] [address] Sep, [facility] [place] [facility] [address] [id number] [place] [address] Sep, [facility] [place] [facility] [address] [id number] [place] [address] Sep, [facility] [place] [facility] [address] [id number] [place] [address] Sep, [facility] [address] [facility] [id number] [address] August, [facility] [id number] [address] August, [facility] [address] [address] August, [facility] [address] [address] August, [facility] [address] [facility] [id number] [address] August, [facility] [id number] [address] August, [facility] [id number] [address] August, [facility] [address] [address] August, [facility] [address] [address] August, [facility] [address] [address] August, [facility] [id number] [address] August, [facility] [id number] [address] August, [facility] [id number] [address] Oct, IMMUNIZATIONS No Known Immunizations SOCIAL HISTORY Never Assessed REASON FOR VISIT sore on stomach-JANET woodson PLAN OF CARE Activity Details Follow Up with Dr Cano as scheduled Reason: VITAL SIGNS Height 63 in 2017-10-27 Weight 400.3 lbs 2017-10-27 Temperature 97.7 degrees Fahrenheit 2017-10-27 Heart Rate 102 bpm 2017-10-27 Respiratory Rate 20 2017-10-27 BMI 70.90 kg/m2 2017-10-27 Blood pressure systolic 110 mmHg 2017-10-27 Blood pressure diastolic 70 mmHg 2017-10-27 MEDICATIONS Medication Instructions Dosage Frequency Start Date End Date Duration Status Zofran 4 MG Orally every 4 hrs 1 tablet as needed 4h Oct, 03 days Active Triamcinolone Acetonide 0.025 % Externally Twice a day 1 application to affected area as needed 12h Jul, Not-Taking Sucralfate 1 GM Orally 4 times a day 1 tablet before meals and at bedtime 6h 30 days Active Lyrica 150 MG Orally twice a day 2 capsules 12h 30 days Active Cyclobenzaprine HCl 10 MG Orally Three times a day 1 tablet as needed 8h Not-Taking Keflex 500 mg Orally every 12 hrs 1 capsule 12h Oct, Oct, 07 days Active Zantac 150 MG Orally Once a day 1 tablet at bedtime 24h Active Test strips as directed Oct, Active Guaifenesin 400 MG Orally every 4 hrs 1 tablet as needed 4h 20 May, 2017 Not-Taking Montelukast Sodium 10 mg Orally Once a day 1 tablet in the evening 24h 90 days Active Ondansetron HCl 4 MG Orally 3 times a day 1 tablet as needed 8h Not-Taking Cetirizine HCl 10 mg Orally Once a day 1 tablet 24h 90 days Active Mirtazapine 30 MG Orally Once a day 1 tablet at bedtime 24h 30 Active Lasix 40 mg Orally Once a day 1 tablet 24h 90 days Active OneTouch Ultra Test - TEST FOUR TIMES DAILY 25 Active Clindamycin Phosphate 1 % Externally Twice a day 1 application to affected area 12h August, Not-Taking Rosuvastatin Calcium 20 mg Orally Once a day 1 tablet 24h Oct, 90 days Active Metformin HCl 1000 MG Orally Twice a day 1 tablet with meals 12h 30 days Active Nexium 40 mg Orally Once a day 1 capsule 24h Jul, 30 day(s) Active Potassium Chloride Eugenia ER 10 MEQ Orally Once a day 1 tablet with food 24h 90 days Active Gemfibrozil 600 MG Orally Twice a day 1 tablet 12h Not-Taking Lotrisone 1-0.05 % Externally Twice a day 1 application to affected area 12h Not-Taking Benadryl Allergy 25 MG Orally 2 times a day 1 capsule 12h Not- Taking Glucometer glucometer as directed Oct, Active RESULTS No Results [...] History suicidal ideations-[place] 12/28 Hospitalization History hypoxia--[facility] 02/13/2016 Hospitalization History shortness of breath at june 2016 Hospitalization History Shortness of breath at august 2016 Hospitalization History SOB, chest pain at 12/2016
--- OUTSIDE RECORDS SUMMARY | 2018-02-11 13:05 | XMS REPORT ---
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 Unspecified mood [affective] disorder F39 [facility] [id number] [place] [address] 79132- 9450 Jun, [facility] [id number] [place] [address] 62644- 2534 Jun, Unspecified mood [affective] disorder F39 [facility] [address], [place] [address]- 3117 Jun, Unspecified mood [affective] disorder F39 [facility] [address], [place] [address]- 0937 Jun, Unspecified mood [affective] disorder F39 [facility] [id number] [place] [address] 12948- 8264 Jun, Unspecified mood [affective] disorder F39 [facility] [id number] [place] [address] 53230- 6175 Jun, [facility] [id number] [place] [address] 44109- 0282 Jun, Type 2 diabetes mellitus with hyperglycemia E11.65 ; 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 ; Folliculitis L73.9 ; Dysuria R30.0 ; Encounter for contraceptive management Z30.9 and Dog bite W54.0XXA [facility] [id number] [place] [address] 13218- 5734 Jun, Unspecified mood [affective] disorder F39 [facility] [id number] [place] [address] 86963- 4632 Jun, Type 2 diabetes mellitus with hyperglycemia E11.65 [facility] [id number] [place] [address] 62784- 7257 May, Unspecified mood [affective] disorder F39 [facility] [address], [place] [address]- 4090 May, [facility] [id number] [place] [address] 19000- 3432 May, [facility] [address], [place] [address]- 3671 May, [facility] [id number] [place] [address] 68091- 1222 Apr, [facility] [address], [place] [address]- 2032 Apr, Unspecified mood [affective] disorder F39 [facility] [id number] [place] [address] 11364- 5848 Apr, [facility] [id number] [place] [address] 17734- 9752 Apr, [facility] [id number] [place] [address] 82413- 9833 Apr, [facility] [id number] [place] [address] 51147- 3453 Apr, Dysuria R30.0 and Well woman exam (no gynecological exam) Z00.00 [place] [id number] [place] [address] 30813- 7432 Mar, [facility] [id number] [place] [address] 16588- 3525 Mar, [facility] [id number] [place] [address] [id number] Mar, Dental examination Z01.20 [place] [id number] [place] [address] 45460- 1984 Mar, Chronic diarrhea K52.9 ; Intractable vomiting with nausea, vomiting of unspecified type R11.2 ; Cellulitis, unspecified cellulitis site L03.90 ; Type 2 diabetes mellitus with diabetic polyneuropathy E11.42 and Postinflammatory hyperpigmentation L81.0 [facility] [id number] [place] [address] 35072- 5094 Mar, Unspecified mood [affective] disorder F39 [facility] [id number] [place] [address] 86929- 8771 Mar, Unspecified mood [affective] disorder F39 [facility] [id number] [place] [address] 15172- 2349 Mar, [facility] [id number], [place] [address]- 7089 Mar, [facility] [id number], [place] [address]- 5431 Mar, [facility] [id number], [place] [address]- 8556 Mar, [facility] [id number] [place] [address] 01082- 6532 Mar, [facility] [address] [facility] [id number] [address]- 5610 Mar, [facility] [id number] [place] [address] 21676- 3817 Feb, Unspecified mood [affective] disorder F39 [facility] [id number] [place] [address] 32473- 3956 Feb, [facility] [id number], [place] [address]- 2750 Feb, [facility] [address], [place] [address]- 4233 Jan, Unspecified mood [affective] disorder F39 [facility] [id number] [facility] [address] [id number] [id number] Jan, Encounter for dental examination Z01.20 [facility] [address], [place] [address]- 8272 Jan, [facility] [id number], [place] [address]- 3445 Jan, [facility] [address], [place] [address]- 5638 Jan, [facility] [id number], [place] [address]- 7787 Jan, [facility] [address], [place] [address]- 6282 Jan, [facility] [id number] [place] [address] 07761- 9052 08 Jan, 2015 Abdominal abscess K65.1 and Dental caries K02.9 [facility] [id number] [place] [address] 92482- 1639 Jan, [facility] [id number] [place] [address] 07480- 1299 30 Dec, 2014 Diabetes with neurological manifestations, type II or unspecified type, not stated as uncontrolled 250.60 ; Essential hypertension, benign 401.1 ; Concussion 850.9 and Skin texture changes 782.8 [facility] [address] 19674- 2099 Dec, [facility] [id number] [place] [address] 14073- 1436 24 Dec, 2014 [facility] [address] 09729- 1235 Dec, [facility] [id number] [place] [address] 88057- 2125 Dec, [facility] [id number] [place] [address] 12891- 2016 17 Dec, 2014 Affective disorder 296.90 [facility] [id number] [place] [address] 73535- 5300 14 Dec, 2014 [facility] [id number] [place] [address] 87097- 2548 10 Dec, 2014 Affective disorder 296.90 [facility] [id number] [place] [address] 48487- 1318 Dec, [facility] [id number] [place] [address] 67059- 7175 Dec, [facility] [id number] [place] [address] 90862- 6634 Dec, [facility] [address] [place] [address]- 2748 Dec, [facility] [id number] [place] [address] 98694- 5906 Nov, Affective disorder 296.90 [facility] [id number] [place] [address] 97347 2545 Nov, [facility] [id number] [place] [address] 98662- 5623 Nov, Affective disorder 296.90 [facility] [id number] [place] [address] 93456 2546 Nov, Diarrhea 787.91 [facility] [id number] [place] [address] 16973- 1296 Nov, [facility] [id number] [place] [address] 49467- 4531 Nov, Diarrhea 787.91 [facility] [id number] [place] [address] 18917 2544 Nov, Diarrhea 787.91 and Hyperlipidemia 272.4 [facility] [id number] [place] [address] 81828- 9390 Nov, Diarrhea 787.91 [facility] [id number] [place] [address] 11240 2543 Nov, Affective disorder 296.90 [facility] [id number] [place] [address] 72381 2543 Nov, Affective disorder 296.90 [facility] [address], [place] [address]- 5149 Nov, Affective disorder 296.90 [facility] [id number] [place] [address] 51227- 3061 Nov, [facility] [id number] [place] [address] 74144- 6033 Nov, [facility] [id number] [place] [address] 74941- 0192 Nov, [facility] [address], [place] [address]- 1932 Nov, Episodic mood disorder 296.90 [facility] [address], [place] [address]- 6684 Nov, [facility] [id number] [place] [address] 20016- 0995 Nov, [facility] [id number] [place] [address] 49715- 6264 Nov, [facility] [id number] [place] [address] 85326- 6256 Nov, [facility] [address], [place] [address]- 5558 Nov, [facility] [id number] [place] [address] 70398- 2227 Nov, Lymphedema 457.1 ; Hyperlipidemia 272.4 ; Essential hypertension, benign 401.1 and Numbness of toes 782.0 [facility] [address], [place] [address]- 8264 Nov, Episodic mood disorder 296.90 [facility] [address], [place] [address]- 0489 Oct, [facility] [address], [place] [address]- 8238 Oct, [facility] [address], [place] [address]- 3725 Oct, [facility] [address], [place] [address]- 8094 Oct, [facility] [address], [place] [address]- 8370 Oct, [facility] [address], [place] [address]- 2855 Oct, [facility] [address] [facility] [id number] [place] [address]- 7498 Oct, 2014 [facility] [address] [facility] [id number] [place] [address]- 2343 Oct, 2014 [facility] [address] [facility] [id number] [place] [address]- 0953 Oct, Episodic mood disorder 296.90 [facility] [address] [facility] [id number] [place] [address]- 5000 30 Sep, 2014 [facility] [address] [facility] [id number] [place] [address]- 7651 29 Sep, 2014 [facility] [address] [facility] [id number] [place] [address]- 0079 Sep, [facility] [address] [facility] [id number] [place] [address]- 7116 Sep, [facility] [address] [facility] [id number] [place] [address]- 4771 Sep, [facility] [address] [facility] [id number], [place] [address]- 6752 Sep, Episodic mood disorder 296.90 [facility] [address] [facility] [id number] [place] [address]- 1000 Sep, Unspecified episodic mood disorder 296.90 [facility] [address] [facility] [id number], [place] [address]- 0567 18 Sep, 2014 [facility] [address] [facility] [id number], [place] [address]- 0573 18 Sep, 2014 [facility] [address] [facility] [id number] [place] [address]- 2043 16 Sep, 2014 Episodic mood disorder 296.90 [facility] [address] [facility] [id number], [place] [address]- 1086 15 Sep, 2014 [facility] [id number] [address]- 6225 Sep, [facility] [address], [place] [address]- 8261 Sep, [facility] [id number] [place] [address] 52404- 8949 Sep, Hematemesis 578.0 and Vomiting 787.03 [facility] [id number] [place] [address] 81651- 7574 Sep, Episodic mood disorder 296.90 [facility] [address], [place] [address]- 9241 Sep, [facility] [id number] [place] [address] 93159- 3988 Sep, [facility] [address], [place] [address]- 7372 Sep, Diabetes mellitus without mention of complication, type II or unspecified type, not stated as uncontrolled 250.00 and Other chronic pain 338.29 [facility] [address], [place] [address]- 0828 Sep, Episodic mood disorder 296.90 [facility] [address] [place] [address] 12670- 1206 Sep, [facility] [address], [place] [address]- 6604 Sep, Episodic mood disorder 296.90 [facility] [address], [place] [address]- 9454 Sep, [facility] [address], [place] [address]- 7897 August, [facility] [address], [place] [address]- 1043 August, [facility] [id number], [place] [address]- 6691 August, Episodic mood disorder 296.90 [facility] [id number] [place] [address]- 6424 August, [facility] [address] [facility] [id number], [place] [address]- 6620 August, Unspecified episodic mood disorder 296.90 [facility] [address] [facility] [id number] [place] [address]- 6675 August, Vomiting 787.03 [facility] [address] [facility] [id number] [place] [address]- 6507 August, [facility] [address] [facility] [id number] [place] [address]- 7845 August, [facility] [address] [facility] [id number] [place] [address]- 7570 August, [facility] [id number] [place] [address]- 2060 August, [facility] [id number], [place] [address]- 7432 August, [facility] [id number] [place] [address]- 3260 Jul, [facility] [id number], [place] [address]- 1735 Jul, [facility] [address] [id number], [place] [address] Jul, [facility] [address] [id number], [place] [address] Jun, [facility] [address] [facility] [id number] [place] [address] Jun, [facility] [address] [facility] [id number], [place] [address] Jun, [facility] [place] [facility] [address] [facility] [id number], [place] [address] Jun, [facility] [address] [id number], [place] [address] 30 Jun, 2014 [facility] [place] [facility] [address] [id number] [place] [address] Jun, [facility] [place] [facility] [address] [id number] [place] [address] Jun, [facility] [place] [facility] [address] [id number] [place] [address] Jun, [facility] [place] [facility] [address] [id number] [place] [address] Jun, [facility] [place] [facility] [address] [id number] [place] [address] Jun, [facility] [place] [facility] [address] [id number] [place] [address] Jun, [facility] [place] [facility] [address] [id number] [place] [address]- [address] Jun, [facility] [place] [facility] [address] [id number] [place] [address] Jun, [facility] [place] [facility] [address] [id number] [place] [address]- [address] Jun, [facility] [place] [facility] [address] [id number] [place] [address]- [address] Jun, [facility] [place] [facility] [address] [id number] [place] [address] Jun, [facility] [place] [facility] [address] [id number] [place] [address] Jun, [facility] [place] [facility] [address] [id number] [place] [address]- [address] Jun, [facility] [place] [facility] [address] [id number] [place] [address]- [address] Jun, [facility] [place] [facility] [address] [id number] [place] [address] Jun, [facility] [place] [facility] [address] [id number] [place] [address]- [address] 21 Jun, 2014 [facility] [place] [facility] [address] [id number] [place] [address]- [address] 20 Jun, 2014 [facility] [place] [facility] [address] [id number] [place] [address] 20 Jun, 2014 [facility] [place] [facility] [address] [id number] [place] [address]- [address] 20 Jun, 2014 [facility] [place] [facility] [address] [id number] [place] [address]- [address] 20 Jun, 2014 [facility] [place] [facility] [address] [id number] [place] [address]- [address] 19 Jun, 2014 [facility] [place] [facility] [address] [id number] [place] [address]- [address] 19 Jun, 2014 [facility] [place] [facility] [address] [id number] [place] [address]- [address] 18 Jun, 2014 [facility] [place] [facility] [address] [id number] [place] [address]- [address] 18 Jun, 2014 [facility] [place] [facility] [address] [id number] [place] [address]- [address] 17 Jun, 2014 [facility] [place] [facility] [address] [id number] [place] [address]- [address] 17 Jun, 2014 [facility] [place] [facility] [address] [id number] [place] [address]- [address] 16 Jun, 2014 [facility] [place] [facility] [address] [id number] [place] [address]- [address] 16 Jun, 2014 [facility] [place] [facility] [address] [id number] [place] [address]- [address] 16 Jun, 2014 [facility] [place] [facility] [address] [id number] [place] [address]- [address] 16 Jun, 2014 [facility] [place] [facility] [address] [id number] [place] [address] Jun, [facility] [place] [facility] [address] [id number] [place] [address] 16 Jun, 2014 [facility] [place] [facility] [address] [id number] [place] [address] Jun, [facility] [place] [facility] [address] [id number] [place] [address]- 5561 Jun, [facility] [place] [facility] [address] [id number] [place] [address]- 4212 Jun, [facility] [place] [facility] [address] [id number] [place] [address]- 0808 Jun, [facility] [place] [facility] [address] [id number] [place] [address]- 0591 Jun, [facility] [place] [facility] [address] [id number] [place] [address]- 4116 Jun, 2014 [facility] [place] [facility] [address] [id number] [place] [address]- 4870 Jun, [facility] [place] [facility] [address] [id number] [place] [address]- 3775 Jun, [facility] [place] [facility] [address] [id number] [place] [address]- 4241 Jun, [facility] [place] [facility] [address] [id number], [place] [address]8 Jun, [facility] [place] [facility] [address] [id number], [place] [address] 8[address] Jun, 2014 [facility] [place] [facility] [address] [id number] [place] [address]- 1581 Jun, [facility] [place] [facility] [address] [id number] [place] [address]- 9111 Jun, [facility] [place] [facility] [address] [id number] [place] [address]- 0993 Jun, [facility] [place] [facility] [address] [id number] [place] [address]- 5657 Jun, [facility] [place] [facility] [address] [id number] [place] [address]- 0559 Jun, [facility] [place] [facility] [address] [facility] [id number] [place] [address]- 3360 Jun, [facility] [place] [facility] [address] [facility] [id number] [place] [address]- 3249 Jun, [facility] [place] [facility] [address] [id number] [place] [address]- 7020 Jun, [facility] [place] [facility] [address] [id number] [place] [address]- 1731 Jun, [facility] [place] [facility] [address] [facility] [id number] [place] [address]- 6432 May, [facility] [place] [facility] [address] [facility] [id number] [place] [address]- 9654 May, 2014 [facility] [place] [facility] [address] [facility] [id number] [place] [address]- 8288 May, [facility] [place] [facility] [address] [id number] [place] [address]- 9692 May, [facility] [place] [facility] [address] [facility] [id number] [place] [address]- 2858 May, [facility] [place] [facility] [address] [facility] [id number] [place] [address]- 0423 May, 2014 [facility] [place] [facility] [address] [facility] [id number] [place] [address]- 2548 May, [facility] [place] [facility] [address] [facility] [id number] [place] [address]- 9729 May, 2014 [facility] [place] [facility] [address] [facility] [id number], [place] [address]- 3408 May, 2014 [facility] [place] [facility] [address] [facility] [id number], [place] [address]- 2149 May, 2014 [facility] [place] [facility] [address] [facility] [id number] [place] [address]- 0465 18 May, 2014 [facility] [place] [facility] [address] [facility] [id number] [place] [address]- 0916 18 May, 2014 [facility] [place] [facility] [address] [facility] [id number] [place] [address]- 2356 13 May, 2014 [facility] [place] [facility] [address] [facility] [id number] [place] [address]- 2544 13 May, 2014 [facility] [place] [facility] [address] [facility] [id number] [place] [address]- 5514 11 May, 2014 [facility] [place] [facility] [address] [id number] [address]- 7763 May, 2014 [facility] [place] [facility] [address] [id number] [address]- 5448 May, 2014 [facility] [place] [facility] [address] [facility] [id number] [place] [address]- 4130 May, 2014 [facility] [place] [facility] [address] [facility] [id number] [place] [address]- 9479 May, 2014 [facility] [place] [facility] [address] [facility] [id number] [place] [address]- 8104 May, 2014 [facility] [place] [facility] [address] [id number] [address]- 2546 May, 2014 [facility] [place] [facility] [address] [facility] [id number], [place] [address]- 2548 May, 2014 [facility] [place] [facility] [address] [facility] [id number] [place] [address]- 7037 May, 2014 [facility] [place] [facility] [address] [facility] [id number], [place] [address]- 0[address] 05 May, 2014 [facility] [place] [facility] [id number] [address]- 1563 May, [facility] [place] [facility] [address] [id number] [place] [address]- 4139 May, [facility] [place] [facility] [address] [id number] [place] [address]- 9661 May, [facility] [place] [facility] [address] [id number] [place] [address]- 3632 Apr, [facility] [place] [facility] [address] [id number] [place] [address]- 1715 Apr, [facility] [place] [facility] [address] [id number] [place] [address]- 6536 Apr, [facility] [place] [facility] [address] [id number] [place] [address]- 4187 Apr, [facility] [place] [facility] [address] [id number] [place] [address]- 2899 Apr, [facility] [place] [facility] [address] [id number] [place] [address]- 8422 Apr, [facility] [place] [facility] [address] [id number] [place] [address]- 8548 Apr, [facility] [place] [facility] [address] [id number] [place] [address]- 9302 Apr, [facility] [place] [facility] [address] [id number], [place] [address]- 4631 Apr, [facility] [place] [facility] [address] [id number], [place] [address]- 2821 Apr, [facility] [place] [facility] [address] [id number] [place] [address]- 4487 Apr, [facility] [place] [facility] [address] [id number], [place] [address]- 7118 Apr, [facility] [place] [facility] [address] [id number] [place] [address]- 8721 Apr, [facility] [place] [facility] [address] [id number] [place] [address]- 0899 Apr, [facility] [address] [id number] [place] [address]- 9670 Apr, [facility] [place] [facility] [address] [id number] [place] [address]- 4403 Apr, [facility] [place] [facility] [address] [id number] [place] [address]- 4503 Apr, [facility] [place] [facility] [address] [id number] [place] [address]- 8805 Apr, [facility] [place] [facility] [address] [id number] [place] [address]- 6591 Apr, [facility] [place] [facility] [address] [id number] [place] [address]- 7878 Apr, [facility] [address] [id number] [place] [address]- 1988 Mar, [facility] [place] [facility] [address] [id number] [place] [address]- 9151 Mar, [facility] [place] [facility] [address] [id number] [place] [address]- 1183 Mar, [facility] [place] [facility] [address] [id number] [place] [address]- 3380 Mar, [facility] [place] [facility] [address] [id number] [place] [address]- 6223 Mar, [facility] [place] [facility] [address] [id number] [place] [address]- 3498 Mar, [facility] [place] [facility] [address] [id number] [place] [address]- 1582 Mar, [facility] [place] [facility] [address] [id number] [place] [address]- 1006 18 Mar, 2014 [facility] [place] [facility] [address] [id number] [place] [address] 15 Mar, 2014 [facility] [place] [facility] [address] [id number] [place] [address]- 4007 15 Mar, 2014 [facility] [place] [facility] [address] [id number] [place] [address]- 3091 Mar, [facility] [place] [facility] [address] [id number] [place] [address]- 0359 Mar, [facility] [place] [facility] [address] [id number] [place] [address]- 3922 Mar, [facility] [place] [facility] [address] [id number] [place] [address]- 4078 Mar, [facility] [place] [facility] [address] [id number] [place] [address]- 1663 Mar, [facility] [place] [facility] [address] [id number] [place] [address]- 3022 Mar, [facility] [place] [facility] [address] [id number] [place] [address]- 8616 Feb, [facility] [place] [facility] [address] [id number] [place] [address]- 3854 Feb, [facility] [place] [facility] [address] [id number] [place] [address]- 9689 Feb, [facility] [place] [facility] [address] [id number] [place] [address]- 8809 Feb, [facility] [place] [facility] [address] [id number] [place] [address]- 7329 Feb, [facility] [place] [facility] [address] [id number] [place] [address]- 2473 Feb, [facility] [place] [facility] [address] [id number] [place] [address]- 9281 Feb, [facility] [place] [facility] [address] [id number] [place] [address]- 8385 18 Feb, 2014 [facility] [place] [facility] [address] [id number], [place] [address]- 2385 18 Feb, 2014 [facility] [place] [facility] [address] [id number] [place] [address]- 1968 17 Feb, 2014 [facility] [place] [facility] [address] [id number] [place] [address]- 0007 17 Feb, 2014 [facility] [place] [facility] [address] [id number] [place] [address]- 7697 17 Feb, 2014 [facility] [place] [facility] [address] [id number] [place] [address]- 9827 17 Feb, 2014 [facility] [place] [facility] [address] [id number] [place] [address]- 6136 Feb, [facility] [place] [facility] [address] [id number] [place] [address]- 6368 Feb, [facility] [place] [facility] [address] [id number] [place] [address]- 5892 Feb, [facility] [place] [facility] [address] [id number] [place] [address]- 8155 Feb, [facility] [place] [facility] [address] [id number] [place] [address]- 5309 Feb, [facility] [place] [facility] [address] [id number] [place] [address]- 3755 Feb, [facility] [place] [facility] [address] [id number], [place] [address]- 5092 Feb, [facility] [place] [facility] [address] [id number], [place] [address]- 2579 Feb, [facility] [place] [facility] [address] [id number] [place] [address]- 0438 Jan, [facility] [place] [facility] [address] [id number] [place] [address]- 9055 Jan, [facility] [place] [facility] [address] [id number] [place] [address]- 7455 Jan, [facility] [place] [facility] [address] [id number] [place] [address]- 7848 30 Jan, 2013 [facility] [place] [facility] [address] [id number] [place] [address]- 3489 24 Jan, 2014 [facility] [place] [facility] [address] [id number] [place] [address]- 7563 24 Jan, 2014 [facility] [place] [facility] [address] [id number] [place] [address]- 3377 Jan, [facility] [place] [facility] [address] [id number] [place] [address]- 1251 21 Jan, 2014 [facility] [place] [facility] [address] [id number] [place] [address]- 2089 20 Jan, 2014 [facility] [place] [facility] [address] [id number] [place] [address]- 0140 20 Jan, 2014 [facility] [place] [facility] [address] [id number] [place] [address]- 1985 17 Jan, 2014 [facility] [place] [facility] [address] [id number] [place] [address]- 9625 17 Jan, 2014 [facility] [place] [facility] [address] [id number] [place] [address]- 8929 17 Jan, 2014 [facility] [place] [facility] [address] [id number] [place] [address]- 7050 17 Jan, 2014 [facility] [place] [facility] [address] [id number] [place] [address]- 0716 15 Jan, 2014 [facility] [place] [facility] [address] [id number] [place] [address]- 6181 15 Jan, 2014 [facility] [place] [facility] [address] [id number] [place] [address]- 5996 14 Jan, 2014 [facility] [place] [facility] [address] [id number] [place] [address]- 2490 14 Jan, 2013 [facility] [place] [facility] [address] [id number] [place] [address]- 1970 Jan, [facility] [place] [facility] [address] [id number] [place] [address]- 0632 Jan, [facility] [place] [facility] [address] [id number] [place] [address]- 0325 Jan, [facility] [place] [facility] [address] [id number] [place] [address]- 0894 Jan, [facility] [place] [facility] [address] [id number] [place] [address]- 1396 Jan, [facility] [place] [facility] [address] [id number] [place] [address]- 1618 Jan, [facility] [place] [facility] [address] [id number] [place] [address]- 9125 Jan, [facility] [place] [facility] [address] [id number] [place] [address]- 5883 25 Dec, 2013 [facility] [place] [facility] [address] [id number], [place] [address]- 9841 25 Dec, 2013 [facility] [place] [facility] [address] [id number] [place] [address]- 9847 23 Dec, 2013 [facility] [place] [facility] [address] [id number], [place] [address]- 6635 23 Dec, 2013 [facility] [place] [facility] [address] [id number], [place] [address]- 2197 19 Dec, 2013 [facility] [place] [facility] [address] [id number], [place] [address]- 0155 19 Dec, 2013 [facility] [place] [facility] [address] [id number] [place] [address]- 3695 17 Dec, 2013 [facility] [place] [facility] [address] [id number] [place] [address]- 2933 17 Dec, 2013 [facility] [place] [facility] [address] [id number], [place] [address]- 1546 09 Dec, 2013 [facility] [place] [facility] [address] [id number], [place] [address]- 2377 09 Dec, 2013 [facility] [place] [facility] [address] [id number] [place] [address]- 1809 08 Dec, 2013 [facility] [place] [facility] [address] [id number] [place] [address]- 7976 Dec, 2013 [facility] [place] [facility] [address] [id number] [place] [address]- 6715 Dec, 2013 [facility] [place] [facility] [address] [id number] [place] [address]- 4496 Dec, 2013 [facility] [place] [facility] [address] [id number] [place] [address]- 5679 Dec, 2013 [facility] [place] [facility] [address] [id number] [place] [address]- 7467 Dec, 2013 [facility] [place] [facility] [address] [id number] [place] [address]- 0140 Dec, 2013 [facility] [place] [facility] [address] [id number] [place] [address]- 8222 Dec, 2013 [facility] [place] [facility] [address] [id number] [place] [address]- 1884 Nov, [facility] [place] [facility] [address] [id number] [place] [address]- 3333 Nov, [facility] [place] [facility] [address] [id number] [place] [address]- 1085 Nov, [facility] [place] [facility] [address] [id number] [place] [address]- 8915 Nov, [facility] [place] [facility] [address] [id number] [place] [address]- 2078 Nov, [facility] [place] [facility] [address] [id number] [place] [address]- 3865 Nov, [facility] [place] [facility] [address] [id number] [place] [address]- 6853 Nov, [facility] [place] [facility] [address] [id number] [place] [address]- 3931 Nov, [facility] [place] [facility] [address] [id number] [place] [address]- 8613 Nov, [facility] [place] [facility] [address] [id number] [place] [address]- 2266 Nov, [facility] [place] [facility] [address] [id number] [place] [address]- 8217 Nov, [facility] [place] [facility] [address] [id number] [place] [address]- 8795 Nov, [facility] [place] [facility] [address] [id number] [place] [address]- 5472 Oct, [facility] [place] [facility] [address] [id number] [place] [address]- 8981 Oct, [facility] [place] [facility] [address] [id number] [place] [address]- 3833 Oct, [facility] [place] [facility] [address] [id number] [place] [address]- 0123 Oct, [facility] [place] [facility] [address] [id number] [place] [address]- 7932 Oct, [facility] [place] [facility] [address] [id number] [place] [address]- 7280 Oct, [facility] [place] [facility] [address] [id number] [place] [address]- 8232 Oct, [facility] [place] [facility] [address] [id number] [place] [address]- 6184 Oct, [facility] [place] [facility] [address] [id number] [place] [address]- 6189 Oct, [facility] [place] [facility] [address] [id number] [place] [address]- 5959 Oct, [facility] [place] [facility] [address] [id number] [place] [address]- 5615 16 Oct, 2013 [facility] [place] [facility] [address] [id number] [place] [address]- 1350 16 Oct, 2013 [facility] [place] [facility] [address] [id number] [place] [address]- 1878 14 Oct, 2013 [facility] [place] [facility] [address] [id number] [place] [address]- 3100 14 Oct, 2013 [facility] [place] [facility] [address] [id number] [place] [address]- 7127 13 Oct, 2013 [facility] [place] [facility] [address] [id number] [place] [address]- 0980 13 Oct, 2013 [facility] [place] [facility] [address] [id number] [place] [address]- 0578 Oct, [facility] [place] [facility] [address] [id number] [place] [address]- 5909 27 Sep, 2013 [facility] [place] [facility] [address] [id number] [place] [address]- 4399 27 Sep, 2013 [facility] [place] [facility] [address] [id number] [place] [address]- 0841 20 Sep, 2013 [facility] [place] [facility] [address] [id number] [place] [address]- 9463 20 Sep, 2013 [facility] [place] [facility] [address] [id number] [place] [address]- 4143 18 Sep, 2013 [facility] [place] [facility] [address] [id number] [place] [address]- 4133 18 Sep, 2013 [facility] [place] [facility] [address] [id number] [place] [address]- 0617 17 Sep, 2013 [facility] [place] [facility] [address] [id number] [place] [address]- 3103 17 Sep, 2013 [facility] [place] [facility] [address] [id number] [place] [address]- 9604 11 Sep, 2013 [facility] [place] [facility] [address] [id number] [place] [address]- 0385 11 Sep, 2013 [facility] [place] [facility] [address] [id number] [place] [address]- 5924 Sep, [facility] [place] [facility] [address] [id number] [place] [address] Sep, [facility] [place] [facility] [address] [id number] [place] [address] Sep, [facility] [place] [facility] [address] [id number] [place] [address] Sep, [facility] [place] [facility] [address] [id number] [place] [address] Sep, [facility] [place] [facility] [address] [id number] [place] [address] Sep, [facility] [place] [facility] [address] [id number] [place] [address]207 Sep, [facility] [place] [facility] [address] [id number] [place] [address]- 46[address] Sep, [facility] [place] [facility] [address] [id number] [place] [address]- [address] Sep, [facility] [place] [facility] [address] [id number] [place] [address]- [address] Sep, [facility] [place] [facility] [address] [id number] [place] [address]- [address] Sep, [facility] [place] [facility] [address] [id number] [place] [address]- [address] Sep, [facility] [place] [facility] [address] [id number] [place] [address]- [address] August, [facility] [place] [facility] [address] [id number] [place] [address]- [address] August, [facility] [place] [facility] [address] [id number] [place] [address]- [address]487 August, [facility] [place] [facility] [address] [id number] [place] [address]- 2066 August, [facility] [place] [facility] [address] [id number] [place] [address]- 97[address] August, [facility] [place] [facility] [address] [id number] [place] [address]- 1566 August, [facility] [place] [facility] [address] [id number] [place] [address]- 69[address] August, [facility] [place] [facility] [address] [id number] [place] [address] August, [facility] [place] [facility] [address] [id number] [place] [address]- 6[address] August, [facility] [place] [facility] [address] [id number] [place] [address]- [address] August, [facility] [place] [facility] [address] [id number] [place] [address]- 3965 August, [facility] [place] [facility] [address] [id number] [place] [address]- [address] Jul, [facility] [place] [facility] [address] [id number] [place] [address] Jul, [facility] [place] [facility] [address] [id number] [place] [address]- [address] Jul, [facility] [place] [facility] [address] [id number] [place] [address]- 9980 Jul, [facility] [place] [facility] [address] [id number] [place] [address]- [address] Jul, [facility] [place] [facility] [address] [id number] [place] [address]- 2701 Jul, [facility] [place] [facility] [address] [id number] [place] [address]- 1630 Jul, [facility] [place] [facility] [address] [id number] [place] [address]- 7373 Jul, [facility] [place] [facility] [address] [id number] [place] [address]- 4137 Jul, [facility] [place] [facility] [address] [id number] [place] [address]- [address] 18 Jul, 2013 [facility] [place] [facility] [address] [id number] [place] [address]- 4668 16 Jul, 2013 [facility] [place] [facility] [address] [id number] [place] [address]- 1073 Jul, [facility] [place] [facility] [address] [id number] [place] [address]- 6255 Jul, [facility] [place] [facility] [address] [id number] [place] [address]- 8797 Jul, [facility] [place] [facility] [address] [id number] [place] [address]- 6329 Jul, [facility] [place] [facility] [address] [id number] [place] [address]- 1144 Jul, [facility] [place] [facility] [address] [id number] [place] [address]- 8061 Jul, [facility] [place] [facility] [address] [id number] [place] [address]- 0516 Jul, [facility] [place] [facility] [address] [id number] [place] [address]- 9074 Jul, [facility] [place] [facility] [address] [id number] [place] [address]- 1057 Jul, [facility] [place] [facility] [address] [id number] [place] [address]- 6152 Jul, [facility] [place] [facility] [address] [id number] [place] [address]- 5286 Jul, [facility] [place] [facility] [address] [id number] [place] [address]- 2780 Jul, [facility] [place] [facility] [address] [id number] [place] [address]- 6782 Jun, [facility] [address] [id number] [place] [address]- 4485 Jun, [facility] [place] [facility] [address] [id number] [place] [address]- [address]204 Jun, [facility] [address] [id number] [place] [address]- 6671 Jun, [facility] [place] [facility] [address] [id number] [place] [address]- 0074 Jun, [facility] [address] [id number] [place] [address]- 2372 Jun, [facility] [address] [id number] [place] [address]- 4095 Jun, [facility] [place] [facility] [address] [id number] [place] [address]- 9465 Jun, [facility] [address] [id number] [place] [address]- 0575 Jun, [facility] [place] [facility] [address] [id number] [place] [address]- 7247 Jun, [facility] [address] [id number] [place] [address]- 4[address] Jun, [facility] [place] [facility] [address] [id number] [place] [address]- 3314 Jun, [facility] [place] [facility] [address] [id number] [place] [address]- 0070 May, [facility] [place] [facility] [address] [id number] [place] [address]- 6430 May, [facility] [place] [facility] [address] [id number] [place] [address]- 5123 Apr, [facility] [place] [facility] [address] [id number] [place] [address]- 9802 Apr, [facility] [place] [facility] [address] [id number] [place] [address]- 2502 Apr, [facility] [place] [facility] [address] [id number] [place] [address]- 8525 Apr, [facility] [place] [facility] [address] [id number] [place] [address]- 1542 Apr, [facility] [place] [facility] [address] [id number] [place] [address]- 0285 Apr, [facility] [place] [facility] [address] [id number] [place] [address]- 3577 Apr, [facility] [place] [facility] [address] [id number] [place] [address]- 4248 Apr, [facility] [place] [facility] [address] [id number] [place] [address]- 5700 Apr, [facility] [place] [facility] [address] [id number] [place] [address]- 1351 Apr, [facility] [place] [facility] [address] [id number] [place] [address]- 7166 Apr, [facility] [place] [facility] [address] [id number] [place] [address]- 8275 Mar, [facility] [place] [facility] [address] [id number] [place] [address]- 9180 16 Mar, 2013 [facility] [place] [facility] [address] [id number] [place] [address]- 9507 Mar, [facility] [place] [facility] [address] [id number] [place] [address] Mar, [facility] [place] [facility] [address] [id number] [place] [address] Feb, [facility] [place] [facility] [address] [id number] [place] [address] Feb, [facility] [place] [facility] [address] [id number], [place] [address] Feb, [facility] [place] [facility] [address] [id number] [place] [address] 8449 Feb, [facility] [place] [facility] [address] [id number], [place] [address] Feb, [facility] [place] [facility] [address] [id number] [place] [address] 59[address] Feb, [facility] [place] [facility] [address] [id number], [place] [address] Feb, [facility] [place] [facility] [address] [id number] [place] [address]- 2766 Feb, [facility] [place] [facility] [address] [id number], [place] [address] 98[address] Feb, [facility] [place] [facility] [address] [id number], [place] [address] Feb, [facility] [place] [facility] [address] [id number], [place] [address] Feb, [facility] [place] [facility] [address] [id number], [place] [address] 79[address] Jan, [facility] [place] [facility] [address] [id number], [place] [address]- [address] Jan, [facility] [place] [facility] [address] [id number], [place] [address]- 27[address] Jan, [facility] [place] [facility] [address] [id number], [place] [address]- 15[address] Jan, [facility] [place] [facility] [address] [id number], [place] [address]- [address] Jan, [facility] [place] [facility] [address] [id number], [place] [address]- 60[address] Jan, [facility] [place] [facility] [address] [id number], [place] [address]- [address] Jan, [facility] [place] [facility] [address] [id number] [place] [address]- [address] 02 Jan, 2013 [facility] [place] [facility] [address] [id number] [place] [address]- 5746 30 Sep, 2012 [facility] [place] [facility] [address] [id number] [place] [address] 2546 25 Sep, 2012 [facility] [place] [facility] [address] [id number] [place] [address] 2546 18 Sep, 2012 [facility] [place] [facility] [address] [id number] [place] [address] 2541 17 Sep, 2012 [facility] [place] [facility] [address] [id number] [place] [address]- 9586 17 Dec, 2012 [facility] [place] [facility] [address] [id number] [place] [address]- 0612 16 Dec, 2012 [facility] [place] [facility] [address] [id number] [place] [address]- 5438 13 Dec, 2012 [facility] [place] [facility] [address] [id number] [place] [address]- 2860 11 Dec, 2012 [facility] [place] [facility] [address] [id number] [place] [address]- 1845 05 Dec, 2012 [facility] [place] [facility] [address] [id number] [place] [address]- 8746 04 Dec, 2012 [facility] [place] [facility] [address] [id number] [place] [address]- 2541 30 Nov, 2012 [facility] [place] [facility] [address] [id number] [place] [address] 2542 29 Nov, 2012 [facility] [place] [facility] [address] [id number] [place] [address] 2545 22 Nov, 2012 [facility] [place] [facility] [address] [id number] [place] [address]- 2541 16 Nov, 2012 [facility] [place] [facility] [address] [id number] [place] [address]- 0062 Nov, [facility] [place] [facility] [address] [id number] [place] [address]- 2212 Nov, [facility] [place] [facility] [address] [id number] [place] [address]- 4052 Nov, [facility] [place] [facility] [address] [id number] [place] [address]- 8119 Oct, [facility] [place] [facility] [address] [id number] [place] [address]- 2925 Oct, [facility] [place] [facility] [address] [id number] [place] [address]- 1378 Oct, [facility] [place] [facility] [address] [id number] [place] [address]- 8609 Oct, [facility] [place] [facility] [address] [id number] [place] [address]- 7001 Oct, [facility] [place] [facility] [address] [id number] [place] [address]- 7884 Oct, [facility] [place] [facility] [address] [id number] [place] [address]- 7780 Sep, [facility] [place] [facility] [address] [id number] [place] [address]- 0266 Sep, [facility] [place] [facility] [address] [id number] [place] [address]- 7002 Sep, [facility] [place] [facility] [address] [id number], [place] [address]- [address] 14 Sep, 2012 [facility] [place] [facility] [address] [id number] [place] [address]- 6967 13 Sep, 2012 [facility] [place] [facility] [address] [id number] [place] [address]- 5174 10 Sep, 2012 [facility] [place] [facility] [address] [id number] [place] [address]- 4879 07 Sep, 2012 [facility] [place] [facility] [address] [id number] [place] [address]- 0142 Sep, [facility] [address] [id number] [place] [address]- 0030 Sep, [facility] [address] [id number] [place] [address]- 0165 August, [facility] [address] [id number] [place] [address]- 7471 August, [facility] [address] [id number] [place] [address]- 5509 August, [facility] [address] [id number] [place] [address]- 0580 August, [facility] [address] [id number] [place] [address]- 8477 August, [facility] [address] [id number] [place] [address]- 6861 August, [facility] [address] [id number] [place] [address]- 8895 August, [facility] [address] [id number] [place] [address]- 2936 August, [facility] [address] [id number] [place] [address]- 9670 Jul, [facility] [address] [id number] [place] [address]- 5956 Jul, [facility] [address] [place] [id number] Jul [facility] [address] [id number] [place] [address]- 1160 Jun, [facility] [address] [id number] [place] [address]- 2567 Jun, [facility] [address] [id number] [place] [address]- 3012 Jun, [facility] [address] [id number] [place] [address]- 4118 Jun, [facility] [address] [id number] [place] [address]- [address] Jun, [facility] [place] [facility] [address] [id number] [place] [address]- 0205 Jun, [facility] [address] [id number] [place] [address]- 0226 May, [facility] [address] [id number] [place] [address]- 0920 May, [facility] [address] [id number] [place] [address]- 7829 May, [facility] [address] [id number] [place] [address]- 1984 May, [facility] [address] [id number] [place] [address]- 3559 May, [facility] [address] [id number] [place] [address]- 0302 Apr, [facility] [address] [id number] [place] [address]- 2072 Apr, [facility] [address] [id number] [place] [address]- 2207 Apr, [facility] [address] [id number] [place] [address]- 6217 Apr, [facility] [address] [id number] [place] [address]- 6182 Apr, [facility] [place] [facility] [address] [id number] [place] [address]- 5020 Apr, [facility] [place] [facility] [address] [id number] [place] [address]- 2257 Mar, [facility] [address] [id number] [place] [address]- 4933 20 Mar, 2012 [facility] [place] [facility] [address] [id number] [place] [address]- 0852 20 Mar, 2012 [facility] [place] [facility] [address] [id number] [place] [address]- 6076 19 Mar, 2012 [facility] [place] [facility] [address] [id number] [place] [address]- 5106 19 Mar, 2012 [facility] [place] [facility] [address] [id number] [place] 8601 18 Mar, 2012 [facility] [place] [facility] [address] [id number] [place] [address]- 9690 18 Mar, 2012 [facility] [place] [facility] [address] [id number] [place] [address]- 6271 Mar, [facility] [place] [facility] [address] [id number] [place] [address]- 0445 Mar, [facility] [place] [facility] [address] [id number] [place] [address]- 7006 05 Mar, 2012 [facility] [place] [facility] [address] [id number] [place] [address]- 1829 05 Mar, 2012 [facility] [place] [facility] [address] [id number] [place] [address]- 5606 28 Feb, 2012 [facility] [place] [facility] [address] [id number] [place] [address]- 0678 28 Feb, 2012 [facility] [place] [facility] [address] [id number], [place] [address]- 2751 Feb, [facility] [place] [facility] [address] [id number] [place] [address]- 8706 Feb, [facility] [place] [facility] [address] [id number] [place] [address]- 8400 Feb, [facility] [place] [facility] [address] [id number] [place] [address]- 4456 16 Feb, 2012 [facility] [place] [facility] [address] [id number] [place] [address]- 3566 16 Feb, 2012 [facility] [place] [facility] [address] [id number] [place] [address]- 2214 Feb, [facility] [place] [facility] [address] [id number] [place] 6[address] Feb, [facility] [place] [facility] [address] [id number] [place] [address]- 0564 Feb, [facility] [place] [facility] [address] [id number] [place] [address]- 3402 Feb, [facility] [place] [facility] [address] [id number] [place] [address]- 7993 Jan, [facility] [place] [facility] [address] [id number] [place] [address]- 2049 Jan, [facility] [place] [facility] [address] [id number] [place] [address]- 9848 Jan, [facility] [place] [facility] [address] [id number] [place] [address]- 4580 Jan, [facility] [place] [facility] [address] [id number] [place] [address]- 8021 Jan, [facility] [place] [facility] [address] [facility] [id number] [place] [address]- 4365 Jan, [facility] [place] [facility] [address] [id number] [place] [address]- 6644 09 Jan, 2012 [facility] [place] [facility] [address] [id number] [place] [address]- 4040 24 Sep2011 [facility] [place] [facility] [address] [id number] [place] [address]- 8861 17 Sep2011 [facility] [place] [facility] [address] [id number] [place] [address]- 3142 13 Sep2011 [facility] [place] [facility] [address] [id number] [place] [address]- 0715 Dec, [facility] [place] [facility] [address] [id number] [place] [address]- 2531 Nov, [facility] [place] [facility] [address] [id number] [place] [address]- 7632 Nov, [facility] [place] [facility] [address] [id number] [place] [address]- 9840 Nov, [facility] [place] [facility] [address] [id number] [place] [address]- 1687 Nov, [facility] [place] [facility] [address] [id number] [place] [address]- 7031 Nov, [facility] [place] [facility] [address] [id number] [place] [address]- 7532 Nov, [facility] [place] [facility] [address] [id number] [place] [address]- 6761 Nov, [facility] [place] [facility] [address] [id number] [place] [address]- 0251 Nov, [facility] [place] [facility] [address] [id number] [place] [address]- 5005 Nov, [facility] [place] [facility] [address] [id number] [place] [address]- 4365 Nov, [facility] [place] [facility] [address] [id number] [place] [address]- 4614 Nov, [facility] [place] [facility] [address] [id number] [place] [address]- 6891 Nov, [facility] [place] [facility] [address] [id number] [place] [address]- 6124 Nov, [facility] [place] [facility] [address] [id number] [place] [address]- 7338 Oct, [facility] [place] [facility] [address] [id number] [place] [address]- 8628 Oct, [facility] [place] [facility] [address] [id number] [place] [address]- 8377 Oct, [facility] [place] [facility] [address] [id number] [place] [address]- 4445 Oct, [facility] [place] [facility] [address] [id number] [place] [address]- 7728 Oct, [facility] [place] [facility] [address] [id number] [place] [address]- 7818 Oct, [facility] [place] [facility] [address] [id number] [place] [address]- 1304 Oct, [facility] [place] [facility] [address] [id number] [place] [address]- 9371 Oct, [facility] [place] [facility] [address] [id number] [place] [address]- 2950 Oct, [facility] [place] [facility] [address] [id number] [place] [address]- 7832 Sep, [facility] [place] [facility] [address] [id number] [place] [address]- 0590 Sep, [facility] [place] [facility] [address] [id number] [place] [address]- 6698 Sep, [facility] [place] [facility] [address] [id number] [place] [address]- 8740 Sep, [facility] [place] [facility] [address] [id number] [place] [address]- 3555 Sep, [facility] [place] [facility] [address] [id number] [place] [address]- 7614 Sep, [facility] [place] [facility] [address] [id number] [place] [address]- 5810 Sep, [facility] [place] [facility] [address] [id number] [place] [address]- 8567 Sep, [facility] [place] [facility] [address] [id number] [place] [address]- 8173 August, [facility] [place] [facility] [address] [id number], [place] [address]- 7753 August, [facility] [address] [id number], [place] [address]- 8137 August, [facility] [address] [id number], [place] [address]- 3389 August, [facility] [id number], [place] [address]- 4370 August, [facility] [address] [facility] [id number], [place] [address]- 4289 August, [facility] [id number], [place] [address]- 7352 August, [facility] [id number], [place] [address]- 9018 August, [facility] [id number], [place] [address]- 6389 August, [facility] [id number], [place] [address]- 9725 August, [facility] [address] [id number], [place] [address]- 3220 August, [facility] [address] [id number], [place] [address]- 9595 August, [facility] [address] [id number], [place] [address]- 2859 Oct, IMMUNIZATIONS No Known Immunizations SOCIAL HISTORY Never Assessed REASON FOR VISIT requesting return call PLAN OF CARE VITAL SIGNS MEDICATIONS No [...] Surgical History bladder surgery Hospitalization History [facility] for right groin pain 05/2011 Hospitalization History [facility] for wound on buttocks 08/2012 Hospitalization History Via [facility], hypoxia secondary to pneumonia 12/02-12/09 Hospitalization History Pneumonia, elevated CO2 on Bipap was in ICU 08/2013 Hospitalization History Hypoxia, Exacerbation COPD, Chest pain 09/05/15 Hospitalization History suicidal ideations-[facility] 12/28 Hospitalization History hypoxia--[facility] 02/13/2016 Hospitalization History shortness of breath at june 2016 Hospitalization History Shortness of breath at august 2016 Hospitalization History SOB, chest pain at 12/2016
--- OUTSIDE RECORDS SUMMARY | 2018-02-11 13:07 | XMS REPORT ---
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 20570- 1797 Jun, Unspecified mood [affective] disorder F39 [facility] [address], [place] [address]- 4635 Jun, Unspecified mood [affective] disorder F39 [facility] [address], [place] [address]- 1575 Jun, Unspecified mood [affective] disorder F39 [facility] [id number] [place] [address] 68487- 3666 Jun, Unspecified mood [affective] disorder F39 [facility] [id number] [place] [address] 10788- 0947 Jun, [facility] [id number] [place] [address] 72303- 8197 Jun, Type 2 diabetes mellitus with hyperglycemia E11.65 ; Oxygen dependent Z99.81 ; Folliculitis L73.9 ; Dysuria R30.0 ; Encounter for contraceptive management Z30.9 and Dog bite W54.0XXA [facility] [id number] [place] [address] 14563- 3652 Jun, Unspecified mood [affective] disorder F39 [facility] [id number] [place] [address] 99331- 2928 Jun, Type 2 diabetes mellitus with hyperglycemia E11.65 [facility] [id number] [place] [address] 70648- 5138 May, Unspecified mood [affective] disorder F39 [facility] [address], [place] [address]- 4608 May, [facility] [id number] [place] [address] 96645- 7059 May, [facility] [address], [place] [address]- 9870 May, [facility] [id number] [place] [address] 48202- 9309 Apr, [facility] [address], [place] [address]- 8192 Apr, Unspecified mood [affective] disorder F39 [facility] [id number] [place] [address] 47762- 6613 Apr, [facility] [id number] [place] [address] 02937- 0015 Apr, [facility] [id number] [place] [address] 97011- 4415 Apr, [facility] [id number] [place] [address] 09207- 7548 Apr, Dysuria R30.0 and Well woman exam (no gynecological exam) Z00.00 [place] [id number] [place] [address] 04120- 7072 Mar, [facility] [id number] [place] [address] 91462- 5855 Mar, [facility] [id number] [place] [address] [id number] Mar, Dental examination Z01.20 [place] [id number] [place] [address] 85996- 0021 Mar, Chronic diarrhea K52.9 ; Intractable vomiting with nausea, vomiting of unspecified type R11.2 ; Cellulitis, unspecified cellulitis site L03.90 ; Type 2 diabetes mellitus with diabetic polyneuropathy E11.42 and Postinflammatory hyperpigmentation L81.0 [facility] [id number] [place] [address] 98833- 2472 Mar, Unspecified mood [affective] disorder F39 [facility] [id number] [place] [address] 62536- 5255 Mar, Unspecified mood [affective] disorder F39 [facility] [id number] [place] [address] 71490- 3459 Mar, [facility] [id number], [place] [address]- 4841 Mar, [facility] [id number], [place] [address]- 3259 Mar, [facility] [id number], [place] [address]- 8935 Mar, [facility] [id number] [place] [address] 34684- 7501 Mar, [facility] [address] [facility] [id number], [place] [address]- 3958 Mar, [facility] [id number] [place] [address] 23946- 3432 Feb, Unspecified mood [affective] disorder F39 [facility] [id number] [place] [address] 19678- 0625 Feb, [facility] [id number], [place] [address]- 5585 Feb, [facility] [address], [place] [address]- 2187 Jan, Unspecified mood [affective] disorder F39 [facility] [place] [address] [facility] [address] [id number] [id number] Jan, Encounter for dental examination Z01.20 [facility] [address], [place] [address]- 3681 Jan, [facility] [id number], [place] [address]- 8275 Jan, [facility] [address], [place] [address]- 3771 Jan, [facility] [id number], [place] [address]- 8763 Jan, [facility] [address], [place] [address]- 6377 Jan, [facility] [id number] [place] [address] 58148- 9182 08 Jan, 2015 Abdominal abscess K65.1 and Dental caries K02.9 [facility] [id number] [place] [address] 88349- 3844 Jan, [facility] [id number] [place] [address] 28342- 1168 30 Dec, 2014 Diabetes with neurological manifestations, type II or unspecified type, not stated as uncontrolled 250.60 ; Essential hypertension, benign 401.1 ; Concussion 850.9 and Skin texture changes 782.8 [facility] [address] 28317- 3479 Dec, [facility] [id number] [place] [address] 01620- 5864 24 Dec, 2014 [facility] [address] 40843- 9286 Dec, [facility] [id number] [place] [address] 92787- 2361 Dec, [facility] [id number] [place] [address] 42837- 1472 17 Dec, 2014 Affective disorder 296.90 [facility] [id number] [place] [address] 40674- 8202 14 Dec, 2014 [facility] [id number] [place] [address] 74869- 2541 10 Dec, 2014 Affective disorder 296.90 [facility] [id number] [place] [address] 90787- 1640 Dec, [facility] [id number] [place] [address] 04152- 3729 Dec, [facility] [id number] [place] [address] 34768- 1084 Dec, [facility] [address] [place] [address]- 9887 Dec, [facility] [id number] [place] [address] 30819- 7231 Nov, Affective disorder 296.90 [facility] [id number] [place] [address] 53947 2545 Nov, [facility] [id number] [place] [address] 10906- 9610 Nov, Affective disorder 296.90 [facility] [id number] [place] [address] 83807 2546 Nov, Diarrhea 787.91 [facility] [id number] [place] [address] 80081- 7156 Nov, [facility] [id number] [place] [address] 00189- 5993 Nov, Diarrhea 787.91 [facility] [id number] [place] [address] 07364 2541 Nov, Diarrhea 787.91 and Hyperlipidemia 272.4 [facility] [id number] [place] [address] 37741- 0725 Nov, Diarrhea 787.91 [facility] [id number] [place] [address] 04565 254 Nov, Affective disorder 296.90 [facility] [id number] [place] [address] 54496 2542 Nov, Affective disorder 296.90 [facility] [address], [place] [address]- 8426 Nov, Affective disorder 296.90 [facility] [id number] [place] [address] 82521- 4716 Nov, [facility] [id number] [place] [address] 48538- 8132 Nov, [facility] [id number] [place] [address] 63242- 9694 Nov, [facility] [address], [place] [address]- 5683 Nov, Episodic mood disorder 296.90 [facility] [address], [place] [address]- 1549 Nov, [facility] [id number] [place] [address] 12467- 3046 Nov, [facility] [id number] [place] [address] 62506- 0283 Nov, [facility] [id number] [place] [address] 27233- 2929 Nov, [facility] [address], [place] [address]- 7774 Nov, [facility] [id number] [place] [address] 52474- 9706 Nov, Lymphedema 457.1 ; Hyperlipidemia 272.4 ; Essential hypertension, benign 401.1 and Numbness of toes 782.0 [facility] [address], [place] [address]- 3918 Nov, Episodic mood disorder 296.90 [facility] [address], [place] [address]- 2936 Oct, [facility] [address], [place] [address]- 1001 Oct, [facility] [address], [place] [address]- 6126 Oct, [facility] [address], [place] [address]- 4327 Oct, [facility] [address], [place] [address]- 3272 Oct, [facility] [address], [place] [address]- 2748 Oct, [facility] [address] [facility] [id number] [place] [address]- 2655 Oct, 2014 [facility] [address] [facility] [id number] [place] [address]- 4360 Oct, 2014 [facility] [address] [facility] [id number] [place] [address]- 7241 Oct, Episodic mood disorder 296.90 [facility] [address] [facility] [id number] [place] [address]- 5270 30 Sep, 2014 [facility] [address] [facility] [id number] [place] [address]- 0343 29 Sep, 2014 [facility] [address] [facility] [id number] [place] [address]- 7383 Sep, [facility] [address] [facility] [id number] [place] [address]- 8244 Sep, [facility] [address] [facility] [id number] [place] [address]- 4309 Sep, [facility] [address] [facility] [id number], [place] [address]- 1190 Sep, Episodic mood disorder 296.90 [facility] [address] [facility] [id number] [place] [address]- 1125 Sep, Unspecified episodic mood disorder 296.90 [facility] [address] [facility] [id number], [place] [address]- 0661 18 Sep, 2014 [facility] [address] [facility] [id number], [place] [address] 18 Sep, 2014 [facility] [address] [facility] [id number] [place] [address] 16 Sep, 2014 Episodic mood disorder 296.90 [facility] [address] [facility] [id number], [place] [address] 15 Sep, 2014 [facility] [address] [id number], [place] [address] Sep, [facility] [id number], [place] [address] Sep, [facility] [id number] [place] [address] Sep, Hematemesis 578.0 and Vomiting 787.03 [facility] [id number] [place] [address] Sep, Episodic mood disorder 296.90 [facility] [id number], [place] [address] Sep, [facility] [id number] [place] [address] Sep, [facility] [id number], [place] [address] Sep, Diabetes mellitus without mention of complication, type II or unspecified type, not stated as uncontrolled 250.00 and Other chronic pain 338.29 [facility] [id number], [place] [address] Sep, Episodic mood disorder 296.90 [facility] [id number] [place] [address] Sep, [facility] [id number], [place] [address] Sep, Episodic mood disorder 296.90 [facility] [id number], [place] [address] Sep, [facility] [id number], [place] [address] August, [facility] [id number], [place] [address] August, [facility] [address] [id number], [place] [address] August, Episodic mood disorder 296.90 [facility] [id number] [place] [address] August, [facility] [address] [facility] [id number], [place] [address] August, Unspecified episodic mood disorder 296.90 [facility] [address] [facility] [id number] [place] [address] August, Vomiting 787.03 [facility] [address] [facility] [id number] [place] [address] August, [facility] [address] [facility] [id number] [place] [address] 1996 August, [facility] [address] [facility] [id number] [place] [address] August, [facility] [id number] [place] [address] August, [facility] [address] [id number], [place] [address] August, [facility] [address] [id number] [place] [address] Jul, [facility] [address] [id number], [place] [address] Jul, [facility] [address] [id number], [place] [address] Jul, [facility] [address] [id number], [place] [address] Jun, [facility] [address] [facility] [id number] [place] [address] 88[address] Jun, [facility] [address] [facility] [id number], [place] [address] Jun, [facility] [place] [facility] [address] [facility] [id number], [place] [address] Jun, [facility] [address] [id number], [place] [address] 30 Jun, 2014 [facility] [place] [facility] [address] [id number] [place] [address]- 8[address] Jun, [facility] [place] [facility] [address] [id number] [place] [address]- 6631 Jun, [facility] [place] [facility] [address] [id number] [place] [address]- 8771 Jun, [facility] [place] [facility] [address] [id number] [place] [address]- 7675 Jun, [facility] [place] [facility] [address] [id number] [place] [address]- 3931 Jun, [facility] [place] [facility] [address] [id number] [place] [address]- 3809 Jun, [facility] [place] [facility] [address] [id number] [place] [address]- 7226 Jun, [facility] [place] [facility] [address] [id number] [place] [address]- 1462 Jun, [facility] [place] [facility] [address] [id number] [place] [address]- 4594 Jun, [facility] [place] [facility] [address] [id number] [place] [address]- 8823 Jun, [facility] [place] [facility] [address] [id number] [place] [address]- 8314 Jun, [facility] [place] [facility] [address] [id number] [place] [address]- 5914 Jun, [facility] [place] [facility] [address] [id number] [place] [address]- 8525 Jun, [facility] [place] [facility] [address] [id number] [place] [address]- 2789 Jun, [facility] [place] [facility] [address] [id number] [place] [address]- 6188 Jun, [facility] [place] [facility] [address] [id number] [place] [address]- 2563 21 Jun, 2014 [facility] [place] [facility] [address] [id number] [place] [address]- 1796 20 Jun, 2014 [facility] [place] [facility] [address] [id number] [place] [address]- 2196 20 Jun, 2014 [facility] [place] [facility] [address] [id number] [place] [address]- 1696 20 Jun, 2014 [facility] [place] [facility] [address] [id number] [place] [address]- 4307 20 Jun, 2014 [facility] [place] [facility] [address] [id number] [place] [address]- 0326 19 Jun, 2014 [facility] [place] [facility] [address] [id number] [place] [address]- 5326 19 Jun, 2014 [facility] [place] [facility] [address] [id number] [place] [address]- 3261 18 Jun, 2014 [facility] [place] [facility] [address] [id number] [place] [address]- 3589 18 Jun, 2014 [facility] [place] [facility] [address] [id number] [place] [address]- 5039 17 Jun, 2014 [facility] [place] [facility] [address] [id number] [place] [address]- 5010 17 Jun, 2014 [facility] [place] [facility] [address] [id number] [place] [address]- 5047 16 Jun, 2014 [facility] [place] [facility] [address] [id number] [place] [address]- 1608 16 Jun, 2014 [facility] [place] [facility] [address] [id number] [place] [address]- 8426 16 Jun, 2014 [facility] [place] [facility] [address] [id number] [place] [address]- 9786 16 Jun, 2014 [facility] [place] [facility] [address] [id number] [place] [address]- 2710 Jun, [facility] [place] [facility] [address] [id number] [place] [address]- 3932 16 Jun, 2014 [facility] [place] [facility] [address] [id number] [place] [address]- 3520 Jun, [facility] [place] [facility] [address] [id number] [place] [address]- 2848 Jun, [facility] [place] [facility] [address] [id number] [place] [address]- 1593 Jun, [facility] [place] [facility] [address] [id number] [place] [address]- 1613 Jun, [facility] [place] [facility] [address] [id number] [place] [address]- 7140 Jun, [facility] [place] [facility] [address] [id number] [place] [address]- 1846 Jun, 2014 [facility] [place] [facility] [address] [id number] [place] [address]- 0390 Jun, [facility] [place] [facility] [address] [id number] [place] [address]- 8669 Jun, [facility] [place] [facility] [address] [id number] [place] [address]- 0021 Jun, [facility] [place] [facility] [address] [id number], [place] [address]- 7360 Jun, [facility] [place] [facility] [address] [id number], [place] [address]- 8140 Jun, 2014 [facility] [place] [facility] [address] [id number] [place] [address]- 8646 Jun, [facility] [place] [facility] [address] [id number] [place] [address]- 7308 Jun, [facility] [place] [facility] [address] [id number] [place] [address]- 4185 Jun, [facility] [place] [facility] [address] [id number] [place] [address]- 1569 Jun, [facility] [place] [facility] [address] [id number] [place] [address]- 2188 Jun, [facility] [place] [facility] [address] [facility] [id number] [place] [address]- 8590 Jun, [facility] [place] [facility] [address] [facility] [id number] [place] [address]- 4613 Jun, [facility] [place] [facility] [address] [id number] [place] [address]- 7551 Jun, [facility] [place] [facility] [address] [id number] [place] [address]- 8300 Jun, [facility] [place] [facility] [address] [facility] [id number] [place] [address]- 4128 May, [facility] [place] [facility] [address] [facility] [id number] [place] [address]- 3266 May, 2014 [facility] [place] [facility] [address] [facility] [id number] [place] [address]- 8823 May, [facility] [place] [facility] [address] [id number] [address]- 5486 May, [facility] [place] [facility] [address] [facility] [id number] [place] [address]- 4388 May, [facility] [place] [facility] [address] [facility] [id number] [place] [address]- 0897 May, 2014 [facility] [place] [facility] [address] [facility] [id number] [place] [address]- 2541 May, [facility] [place] [facility] [address] [facility] [id number] [place] [address]- 6581 May, 2014 [facility] [place] [facility] [address] [facility] [id number], [place] [address]- 3175 May, 2014 [facility] [place] [facility] [address] [facility] [id number], [place] [address]- 9895 May, 2014 [facility] [place] [facility] [address] [facility] [id number] [place] [address]- 7812 18 May, 2014 [facility] [place] [facility] [address] [facility] [id number] [place] [address]- 0636 18 May, 2014 [facility] [place] [facility] [address] [facility] [id number] [place] [address]- 0146 13 May, 2014 [facility] [place] [facility] [address] [facility] [id number] [place] [address]- 2549 13 May, 2014 [facility] [place] [facility] [address] [facility] [id number] [place] [address]- 0703 11 May, 2014 [facility] [place] [facility] [address] [id number] [place] [address]- 0680 May, 2014 [facility] [place] [facility] [address] [id number] [place] [address]- 2598 May, 2014 [facility] [place] [facility] [address] [facility] [id number] [place] [address]- 4099 May, 2014 [facility] [place] [facility] [address] [facility] [id number] [place] [address]- 0876 May, 2014 [facility] [place] [facility] [address] [facility] [id number] [place] [address]- 6091 May, 2014 [facility] [place] [facility] [address] [id number] [place] [address]- 2546 May, 2014 [facility] [place] [facility] [address] [facility] [id number], [place] [address]- 2543 May, 2014 [facility] [place] [facility] [address] [facility] [id number] [place] [address]- 4023 May, 2014 [facility] [place] [facility] [address] [facility] [id number], [place] [address]- 8200 05 May, 2014 [facility] [place] [facility] [id number] [place] [address]- 4651 May, [facility] [place] [facility] [address] [id number] [place] [address]- 3690 May, [facility] [place] [facility] [address] [id number] [place] [address]- 8618 May, [facility] [place] [facility] [address] [id number] [place] [address]- 0722 Apr, [facility] [place] [facility] [address] [id number] [place] [address]- 7615 Apr, [facility] [place] [facility] [address] [id number] [place] [address]- 3309 Apr, [facility] [place] [facility] [address] [id number] [place] [address]- 2553 Apr, [facility] [place] [facility] [address] [id number] [place] [address]- 6894 Apr, [facility] [place] [facility] [address] [id number] [place] [address]- 0156 Apr, [facility] [place] [facility] [address] [id number] [place] [address]- 7256 Apr, [facility] [place] [facility] [address] [id number] [place] [address]- 0237 Apr, [facility] [place] [facility] [address] [id number], [place] [address]- 8850 Apr, [facility] [place] [facility] [address] [id number], [place] [address]- 9329 Apr, [facility] [place] [facility] [address] [id number] [place] [address]- 6973 Apr, [facility] [place] [facility] [address] [id number], [place] [address]- 7688 Apr, [facility] [place] [facility] [address] [id number] [place] [address]- 3699 Apr, [facility] [place] [facility] [address] [id number] [place] [address]- 6593 Apr, [facility] [address] [id number] [place] [address]- 0130 Apr, [facility] [place] [facility] [address] [id number] [place] [address]- 8442 Apr, [facility] [place] [facility] [address] [id number] [place] [address]- 9002 Apr, [facility] [place] [facility] [address] [id number] [place] [address]- 1763 Apr, [facility] [place] [facility] [address] [id number] [place] [address]- 3986 Apr, [facility] [place] [facility] [address] [id number] [place] [address]- 7089 Apr, [facility] [address] [id number] [place] [address]- 7694 Mar, [facility] [place] [facility] [address] [id number] [place] [address]- 7897 Mar, [facility] [place] [facility] [address] [id number] [place] [address]- 2581 Mar, [facility] [place] [facility] [address] [id number] [place] [address]- 0685 Mar, [facility] [place] [facility] [address] [id number] [place] [address]- 5892 Mar, [facility] [place] [facility] [address] [id number] [place] [address]- 4146 Mar, [facility] [place] [facility] [address] [id number] [place] [address]- 4006 Mar, [facility] [place] [facility] [address] [id number] [place] [address]- 4198 18 Mar, 2014 [facility] [place] [facility] [address] [id number] [place] [address]345 15 Mar, 2014 [facility] [place] [facility] [address] [id number] [place] [address]- 5099 15 Mar, 2014 [facility] [place] [facility] [address] [id number] [place] [address]- 9976 Mar, [facility] [place] [facility] [address] [id number] [place] [address]- 6331 Mar, [facility] [place] [facility] [address] [id number] [place] [address]- 7222 Mar, [facility] [place] [facility] [address] [id number] [place] [address]- 0347 Mar, [facility] [place] [facility] [address] [id number] [place] [address]- 4911 Mar, [facility] [place] [facility] [address] [id number] [place] [address]- 4234 Mar, [facility] [place] [facility] [address] [id number] [place] [address]- 0472 Feb, [facility] [place] [facility] [address] [id number] [place] [address]- 3621 Feb, [facility] [place] [facility] [address] [id number] [place] [address]- 9295 Feb, [facility] [place] [facility] [address] [id number] [place] [address]- 5993 Feb, [facility] [place] [facility] [address] [id number] [place] [address]- 2334 Feb, [facility] [place] [facility] [address] [id number] [place] [address]- 4934 Feb, [facility] [place] [facility] [address] [id number] [place] [address]- 9220 Feb, [facility] [place] [facility] [address] [id number] [place] [address]- 4616 18 Feb, 2014 [facility] [place] [facility] [address] [id number], [place] [address]- 3083 18 Feb, 2014 [facility] [place] [facility] [address] [id number] [place] [address]- 0479 17 Feb, 2014 [facility] [place] [facility] [address] [id number] [place] [address]- 2096 17 Feb, 2014 [facility] [place] [facility] [address] [id number] [place] [address]- 6290 17 Feb, 2014 [facility] [place] [facility] [address] [id number] [place] [address]- 6677 17 Feb, 2014 [facility] [place] [facility] [address] [id number] [place] [address]- 6454 Feb, [facility] [place] [facility] [address] [id number] [place] [address]- 3777 Feb, [facility] [place] [facility] [address] [id number] [place] [address]- 9504 Feb, [facility] [place] [facility] [address] [id number] [place] [address]- 7498 Feb, [facility] [place] [facility] [address] [id number] [place] [address]- 6499 Feb, [facility] [place] [facility] [address] [id number] [place] [address]- 4246 Feb, [facility] [place] [facility] [address] [id number], [place] [address]- 7719 Feb, [facility] [place] [facility] [address] [id number], [place] [address]- 9781 Feb, [facility] [place] [facility] [address] [id number] [place] [address]- 0007 Jan, [facility] [place] [facility] [address] [id number] [place] [address]- 4942 Jan, [facility] [place] [facility] [address] [id number] [place] [address]- 7272 Jan, [facility] [place] [facility] [address] [id number] [place] [address]- 8516 30 Jan, 2013 [facility] [place] [facility] [address] [id number] [place] [address]- 3370 24 Jan, 2014 [facility] [place] [facility] [address] [id number] [place] [address]- 5673 24 Jan, 2014 [facility] [place] [facility] [address] [id number] [place] [address]- 9476 Jan, [facility] [place] [facility] [address] [id number] [place] [address]- 0912 21 Jan, 2014 [facility] [place] [facility] [address] [id number] [place] [address]- 3421 20 Jan, 2014 [facility] [place] [facility] [address] [id number] [place] [address]- 0350 20 Jan, 2014 [facility] [place] [facility] [address] [id number] [place] [address]- 7808 17 Jan, 2014 [facility] [place] [facility] [address] [id number] [place] [address]- 6507 17 Jan, 2014 [facility] [place] [facility] [address] [id number] [place] [address]- 0119 17 Jan, 2014 [facility] [place] [facility] [address] [id number] [place] [address]- 6862 17 Jan, 2014 [facility] [place] [facility] [address] [id number] [place] [address]- 8692 15 Jan, 2014 [facility] [place] [facility] [address] [id number] [place] [address]- 4153 15 Jan, 2014 [facility] [place] [facility] [address] [id number] [place] [address]- 8828 14 Jan, 2014 [facility] [place] [facility] [address] [id number] [place] [address]- 1972 14 Jan, 2013 [facility] [place] [facility] [address] [id number] [place] [address]- 9194 Jan, [facility] [place] [facility] [address] [id number] [place] [address]- 4343 Jan, [facility] [place] [facility] [address] [id number] [place] [address]- 1630 Jan, [facility] [place] [facility] [address] [id number] [place] [address]- 6937 Jan, [facility] [place] [facility] [address] [id number] [place] [address]- 4467 Jan, [facility] [place] [facility] [address] [id number] [place] [address]- 2101 Jan, [facility] [place] [facility] [address] [id number] [place] [address]- 0351 Jan, [facility] [place] [facility] [address] [id number] [place] [address]- 7952 25 Dec, 2013 [facility] [place] [facility] [address] [id number], [place] [address]- 6163 25 Dec, 2013 [facility] [place] [facility] [address] [id number] [place] [address]- 0786 23 Dec, 2013 [facility] [place] [facility] [address] [id number], [place] [address]- 8311 23 Dec, 2013 [facility] [place] [facility] [address] [id number], [place] [address]- 4952 19 Dec, 2013 [facility] [place] [facility] [address] [id number], [place] [address]- 1705 19 Dec, 2013 [facility] [place] [facility] [address] [id number] [place] [address]- 2643 17 Dec, 2013 [facility] [place] [facility] [address] [id number] [place] [address]- 3720 17 Dec, 2013 [facility] [place] [facility] [address] [id number], [place] [address]- 8842 09 Dec, 2013 [facility] [place] [facility] [address] [id number], [place] [address]- 4649 09 Dec, 2013 [facility] [place] [facility] [address] [id number] [place] [address]- 2584 08 Dec, 2013 [facility] [place] [facility] [address] [id number] [place] [address]- 6785 Dec, 2013 [facility] [place] [facility] [address] [id number] [place] [address]- 7519 Dec, 2013 [facility] [place] [facility] [address] [id number] [place] [address]- 0310 Dec, 2013 [facility] [place] [facility] [address] [id number] [place] [address]- 8786 Dec, 2013 [facility] [place] [facility] [address] [id number] [place] [address]- 8342 Dec, 2013 [facility] [place] [facility] [address] [id number] [place] [address]- 1802 Dec, 2013 [facility] [place] [facility] [address] [id number] [place] [address]- 5933 Dec, 2013 [facility] [place] [facility] [address] [id number] [place] [address]- 3835 Nov, [facility] [place] [facility] [address] [id number] [place] [address]- 0077 Nov, [facility] [place] [facility] [address] [id number] [place] [address]- 1029 Nov, [facility] [place] [facility] [address] [id number] [place] [address]- 4564 Nov, [facility] [place] [facility] [address] [id number] [place] [address]- 2291 Nov, [facility] [place] [facility] [address] [id number] [place] [address] Nov, [facility] [place] [facility] [address] [id number] [place] [address] Nov, [facility] [place] [facility] [address] [id number] [place] [address] Nov, [facility] [place] [facility] [address] [id number] [place] [address] Nov, [facility] [place] [facility] [address] [id number] [place] [address] 1466 Nov, [facility] [place] [facility] [address] [id number] [place] [address] Nov, [facility] [place] [facility] [address] [id number] [place] [address] Nov, [facility] [place] [facility] [address] [id number] [place] [address] Oct, [facility] [place] [facility] [address] [id number] [place] [address] Oct, [facility] [place] [facility] [address] [id number] [place] [address] Oct, [facility] [place] [facility] [address] [id number] [place] [address]398 Oct, [facility] [place] [facility] [address] [id number] [place] [address] 8199 Oct, [facility] [place] [facility] [address] [id number] [place] [address] Oct, [facility] [place] [facility] [address] [id number] [place] [address]- [address]92 Oct, [facility] [place] [facility] [address] [id number] [place] [address] 8144 Oct, [facility] [place] [facility] [address] [id number] [place] [address] Oct, [facility] [place] [facility] [address] [id number] [place] [address] Oct, [facility] [place] [facility] [address] [id number] [place] [address]408 16 Oct, 2013 [facility] [place] [facility] [address] [id number] [place] [address]- 9656 16 Oct, 2013 [facility] [place] [facility] [address] [id number] [place] [address]- 6278 14 Oct, 2013 [facility] [place] [facility] [address] [id number] [place] [address] 6847 14 Oct, 2013 [facility] [place] [facility] [address] [id number] [place] [address]- 8707 13 Oct, 2013 [facility] [place] [facility] [address] [id number] [place] [address]- 2679 13 Oct, 2013 [facility] [place] [facility] [address] [id number] [place] [address] 9403 Oct, [facility] [place] [facility] [address] [id number] [place] [address]- 1380 27 Sep, 2013 [facility] [place] [facility] [address] [id number] [place] [address]- 1710 27 Sep, 2013 [facility] [place] [facility] [address] [id number] [place] [address]- 2203 20 Sep, 2013 [facility] [place] [facility] [address] [id number] [place] [address]- 6410 20 Sep, 2013 [facility] [place] [facility] [address] [id number] [place] [address]- 7590 18 Sep, 2013 [facility] [place] [facility] [address] [id number] [place] [address]- 5[address] 18 Sep, 2013 [facility] [place] [facility] [address] [id number] [place] [address]- 8171 17 Sep, 2013 [facility] [place] [facility] [address] [id number] [place] [address]- 2563 17 Sep, 2013 [facility] [place] [facility] [address] [id number] [place] [address]- 6350 11 Sep, 2013 [facility] [place] [facility] [address] [id number] [place] [address]- 9257 11 Sep, 2013 [facility] [place] [facility] [address] [id number] [place] [address]- 1072 Sep, [facility] [place] [facility] [address] [id number] [place] [address]- 8683 Sep, [facility] [place] [facility] [address] [id number] [place] [address]- 0723 Sep, [facility] [place] [facility] [address] [id number] [place] [address]- 2242 Sep, [facility] [place] [facility] [address] [id number] [place] [address]- 6827 Sep, [facility] [place] [facility] [address] [id number] [place] [address] Sep, [facility] [place] [facility] [address] [id number] [place] [address]- 6429 Sep, [facility] [place] [facility] [address] [id number] [place] [address]- 5590 Sep, [facility] [place] [facility] [address] [id number] [place] [address]- 0460 Sep, [facility] [place] [facility] [address] [id number] [place] [address]- 5286 Sep, [facility] [place] [facility] [address] [id number] [place] [address]- 3659 Sep, [facility] [place] [facility] [address] [id number] [place] [address]- 3468 Sep, [facility] [place] [facility] [address] [id number] [place] [address]- 0315 August, [facility] [place] [facility] [address] [id number] [place] [address]- 9391 August, [facility] [place] [facility] [address] [id number] [place] [address]- 7731 August, [facility] [place] [facility] [address] [id number] [place] [address]- 4600 August, [facility] [place] [facility] [address] [id number] [place] [address]- 3366 August, [facility] [place] [facility] [address] [id number] [place] [address]- 0441 August, [facility] [place] [facility] [address] [id number] [place] [address]- 0588 August, [facility] [place] [facility] [address] [id number] [place] [address]- 0770 August, [facility] [place] [facility] [address] [id number] [place] [address]- 7520 August, [facility] [place] [facility] [address] [id number] [place] [address]- 6848 August, [facility] [place] [facility] [address] [id number] [place] [address] 7813 August, [facility] [place] [facility] [address] [id number] [place] [address]- 9236 Jul, [facility] [place] [facility] [address] [id number] [place] [address]- 1861 Jul, [facility] [place] [facility] [address] [id number] [place] [address]- 0838 Jul, [facility] [place] [facility] [address] [id number] [place] [address]- 9148 Jul, [facility] [place] [facility] [address] [id number] [place] [address]- 5770 Jul, [facility] [place] [facility] [address] [id number] [place] [address]- 4738 Jul, [facility] [place] [facility] [address] [id number] [place] [address]- 1849 Jul, [facility] [place] [facility] [address] [id number] [place] [address]- 7614 Jul, [facility] [place] [facility] [address] [id number] [place] [address]- 3329 Jul, [facility] [place] [facility] [address] [id number] [place] [address]- 0019 18 Jul, 2013 [facility] [place] [facility] [address] [id number] [place] [address]- 2275 16 Jul, 2013 [facility] [place] [facility] [address] [id number] [place] [address]- 7795 Jul, [facility] [place] [facility] [address] [id number] [place] [address]- 1914 Jul, [facility] [place] [facility] [address] [id number] [place] [address]- 8245 Jul, [facility] [place] [facility] [address] [id number] [place] [address] Jul, [facility] [place] [facility] [address] [id number] [place] [address] 8[address] Jul, [facility] [place] [facility] [address] [id number] [place] [address] 3078 Jul, [facility] [place] [facility] [address] [id number] [place] [address] 0483 Jul, [facility] [place] [facility] [address] [id number] [place] [address] 4034 Jul, [facility] [place] [facility] [address] [id number] [place] [address] 9533 Jul, [facility] [place] [facility] [address] [id number] [place] [address] 6463 Jul, [facility] [place] [facility] [address] [id number] [place] [address] 1811 Jul, [facility] [place] [facility] [address] [id number] [place] [address] 6649 Jul, [facility] [place] [facility] [address] [id number] [place] [address] 3216 Jun, [facility] [address] [id number] [place] [address] 2763 Jun, [facility] [place] [facility] [address] [id number] [place] [address] 2508 Jun, [facility] [address] [id number] [place] [address]- 5315 Jun, [facility] [place] [facility] [address] [id number] [place] [address] 7895 Jun, [facility] [address] [id number] [place] [address] 4919 Jun, [facility] [address] [id number] [place] [address] 9734 Jun, [facility] [place] [facility] [address] [id number] [place] [address]- 9897 Jun, [facility] [address] [id number] [place] [address]- 6443 Jun, [facility] [place] [facility] [address] [id number] [place] [address]- 0674 Jun, [facility] [address] [id number] [place] [address]- 0120 Jun, [facility] [place] [facility] [address] [id number] [place] [address]- 9645 Jun, [facility] [place] [facility] [address] [id number] [place] [address] 1226 May, [facility] [place] [facility] [address] [id number] [place] [address] 9863 May, [facility] [place] [facility] [address] [id number] [place] [address]- 7645 Apr, [facility] [place] [facility] [address] [id number] [place] [address]- 1582 Apr, [facility] [place] [facility] [address] [id number] [place] [address]- 6667 Apr, [facility] [place] [facility] [address] [id number] [place] [address]- 8294 Apr, [facility] [place] [facility] [address] [id number] [place] [address]- 2085 Apr, [facility] [place] [facility] [address] [id number] [place] [address] 2171 Apr, [facility] [place] [facility] [address] [id number] [place] [address]- 4536 Apr, [facility] [place] [facility] [address] [id number] [place] [address]- 1144 Apr, [facility] [place] [facility] [address] [id number] [place] [address]- 0209 Apr, [facility] [place] [facility] [address] [id number] [place] [address]- 7618 Apr, [facility] [place] [facility] [address] [id number] [place] [address]- 0248 Apr, [facility] [place] [facility] [address] [id number] [place] [address]- 6218 Mar, [facility] [place] [facility] [address] [id number] [place] [address]- 9378 16 Mar, 2013 [facility] [place] [facility] [address] [id number] [place] [address]- 9420 Mar, [facility] [place] [facility] [address] [id number] [place] [address]- 2468 Mar, [facility] [place] [facility] [address] [id number] [place] [address] 1397 Feb, [facility] [place] [facility] [address] [id number] [place] [address] Feb, [facility] [place] [facility] [address] [id number], [place] [address] 8[address] Feb, [facility] [place] [facility] [address] [id number] [place] [address] 2148 Feb, [facility] [place] [facility] [address] [id number], [place] [address]- 2177 Feb, [facility] [place] [facility] [address] [id number] [place] [address]- 7301 Feb, [facility] [place] [facility] [address] [id number], [place] [address]- 9735 Feb, [facility] [place] [facility] [address] [id number] [place] [address]- 2430 Feb, [facility] [place] [facility] [address] [id number], [place] [address]- 2562 Feb, [facility] [place] [facility] [address] [id number], [place] [address]- 0250 Feb, [facility] [place] [facility] [address] [id number], [place] [address]- 9611 Feb, [facility] [place] [facility] [address] [id number], [place] [address]- 1823 Jan, [facility] [place] [facility] [address] [id number], [place] [address]- 1664 Jan, [facility] [place] [facility] [address] [id number], [place] [address]- 2136 Jan, [facility] [place] [facility] [address] [id number], [place] [address]- 7849 Jan, [facility] [place] [facility] [address] [id number], [place] [address]- 2629 Jan, [facility] [place] [facility] [address] [id number], [place] [address]- 6801 Jan, [facility] [place] [facility] [address] [id number], [place] [address]- 9406 Jan, [facility] [place] [facility] [address] [id number] [place] [address]- 1153 02 Jan, 2013 [facility] [place] [facility] [address] [id number] [place] [address]- 6666 30 Sep, 2012 [facility] [place] [facility] [address] [id number] [place] [address] 2546 25 Sep, 2012 [facility] [place] [facility] [address] [id number] [place] [address] 2546 18 Sep, 2012 [facility] [place] [facility] [address] [id number] [place] [address] 254 17 Sep, 2012 [facility] [place] [facility] [address] [id number] [place] [address]- 3326 17 Dec, 2012 [facility] [place] [facility] [address] [id number] [place] [address]- 6046 16 Dec, 2012 [facility] [place] [facility] [address] [id number] [place] [address]- 0768 13 Dec, 2012 [facility] [place] [facility] [address] [id number] [place] [address]- 0325 11 Dec, 2012 [facility] [place] [facility] [address] [id number] [place] [address]- 4153 05 Dec, 2012 [facility] [place] [facility] [address] [id number] [place] [address]- 6925 04 Dec, 2012 [facility] [place] [facility] [address] [id number] [place] [address]- 2549 30 Nov, 2012 [facility] [place] [facility] [address] [id number] [place] [address] 2548 29 Nov, 2012 [facility] [place] [facility] [address] [id number] [place] [address] 2542 22 Nov, 2012 [facility] [place] [facility] [address] [id number] [place] [address]- 2549 16 Nov, 2012 [facility] [place] [facility] [address] [id number] [place] [address]- 7464 Nov, [facility] [place] [facility] [address] [id number] [place] [address]- 0135 Nov, [facility] [place] [facility] [address] [id number] [place] [address]- 6320 Nov, [facility] [place] [facility] [address] [id number] [place] [address]- 0285 Oct, [facility] [place] [facility] [address] [id number] [place] [address]- 8061 Oct, [facility] [place] [facility] [address] [id number] [place] [address]- 6211 Oct, [facility] [place] [facility] [address] [id number] [place] [address]- 7117 Oct, [facility] [place] [facility] [address] [id number] [place] [address]- 3608 Oct, [facility] [place] [facility] [address] [id number] [place] [address]- 1837 Oct, [facility] [place] [facility] [address] [id number] [place] [address]- 6987 Sep, [facility] [place] [facility] [address] [id number] [place] [address]- 4355 Sep, [facility] [place] [facility] [address] [id number] [place] [address]- 9169 Sep, [facility] [place] [facility] [address] [id number], [place] [address]- 9575 14 Sep, 2012 [facility] [place] [facility] [address] [id number] [place] [address]- 2602 13 Sep, 2012 [facility] [place] [facility] [address] [id number] [place] [address]- 2844 10 Sep, 2012 [facility] [place] [facility] [address] [id number] [place] [address]- 8868 07 Sep, 2012 [facility] [place] [facility] [address] [id number] [place] [address]- 9311 Sep, [facility] [address] [id number] [place] [address]- 8157 Sep, [facility] [address] [id number] [place] [address]- 6214 August, [facility] [address] [id number] [place] [address]- 9938 August, [facility] [address] [id number] [place] [address]- 4472 August, [facility] [address] [id number] [place] [address]- 3035 August, [facility] [address] [id number] [place] [address]- 3995 August, [facility] [address] [id number] [place] [address]- 0083 August, [facility] [address] [id number] [place] [address]- 7197 August, [facility] [address] [id number] [place] [address]- 2596 August, [facility] [address] [id number] [place] [address]- 3281 Jul, [facility] [address] [id number] [place] [address]- 6406 Jul, [facility] [address] [place] [id number] Jul [facility] [address] [id number] [place] [address]- 0008 Jun, [facility] [address] [id number] [place] [address]- 4014 Jun, [facility] [address] [id number] [place] [address]- 4949 Jun, [facility] [address] [id number] [place] [address]- 8157 Jun, [facility] [address] [id number] [place] [address]- 7790 Jun, [facility] [place] [facility] [address] [id number] [place] [address]- 6386 Jun, [facility] [address] [id number] [place] [address]- 5604 May, [facility] [address] [id number] [place] [address]- 1037 May, [facility] [address] [id number] [place] [address]- 1606 May, [facility] [address] [id number] [place] [address]- 3927 May, [facility] [address] [id number] [place] [address]- 3060 May, [facility] [address] [id number] [place] [address]- 4354 Apr, [facility] [address] [id number] [place] [address]- 5512 Apr, [facility] [address] [id number] [place] [address]- 6946 Apr, [facility] [address] [id number] [place] [address]- 8515 Apr, [facility] [address] [id number] [place] [address]- 2523 Apr, [facility] [place] [facility] [address] [id number] [place] [address]- 6682 Apr, [facility] [place] [facility] [address] [id number] [place] [address]- 3522 Mar, [facility] [address] [id number] [place] [address]- 9103 20 Mar, 2012 [facility] [place] [facility] [address] [id number] [place] [address]- 7049 20 Mar, 2012 [facility] [place] [facility] [address] [id number] [place] [address]- 2596 19 Mar, 2012 [facility] [place] [facility] [address] [id number] [place] [address]- 8576 19 Mar, 2012 [facility] [place] [facility] [address] [id number] [place] [address]70 18 Mar, 2012 [facility] [place] [facility] [address] [id number] [place] [address]- 2395 18 Mar, 2012 [facility] [place] [facility] [address] [id number] [place] [address]- 8871 Mar, [facility] [place] [facility] [address] [id number] [place] [address]- 3593 Mar, [facility] [place] [facility] [address] [id number] [place] [address]- 6185 05 Mar, 2012 [facility] [place] [facility] [address] [id number] [place] [address]- 2242 05 Mar, 2012 [facility] [place] [facility] [address] [id number] [place] [address]- 4818 28 Feb, 2012 [facility] [place] [facility] [address] [id number] [place] [address]- 7525 28 Feb, 2012 [facility] [place] [facility] [address] [id number], [place] [address]- 0961 Feb, [facility] [place] [facility] [address] [id number] [place] [address]- 1036 Feb, [facility] [place] [facility] [address] [id number] [place] [address]- 8000 Feb, [facility] [place] [facility] [address] [id number] [place] [address]- 0556 16 Feb, 2012 [facility] [place] [facility] [address] [id number] [place] [address]- 2128 16 Feb, 2012 [facility] [place] [facility] [address] [id number] [place] [address]- 5662 Feb, [facility] [place] [facility] [address] [id number] [place]85 Feb, [facility] [place] [facility] [address] [id number] [place] [address]- 7754 Feb, [facility] [place] [facility] [address] [id number] [place] [address]- 4242 Feb, [facility] [place] [facility] [address] [id number] [place] [address]- 1119 Jan, [facility] [place] [facility] [address] [id number] [place] [address]- 5607 Jan, [facility] [place] [facility] [address] [id number] [place] [address]- 4777 Jan, [facility] [place] [facility] [address] [id number] [place] [address]- 6826 Jan, [facility] [place] [facility] [address] [id number] [place] [address]- 8654 Jan, [facility] [place] [facility] [address] [facility] [id number] [place] [address]- 0462 Jan, [facility] [place] [facility] [address] [id number] [place] [address]- 8977 09 Jan, 2012 [facility] [place] [facility] [address] [id number] [place] [address]- 3072 24 Sep2011 [facility] [place] [facility] [address] [id number] [place] [address]- 7265 17 Sep2011 [facility] [place] [facility] [address] [id number] [place] [address]- 7657 13 Sep2011 [facility] [place] [facility] [address] [id number] [place] [address]- 1049 Dec, [facility] [place] [facility] [address] [id number] [place] [address]- 9225 Nov, [facility] [place] [facility] [address] [id number] [place] [address]- 0341 Nov, [facility] [place] [facility] [address] [id number] [place] [address]- 9974 Nov, [facility] [place] [facility] [address] [id number] [place] [address]- 8570 Nov, [facility] [place] [facility] [address] [id number] [place] [address]- 4983 Nov, [facility] [place] [facility] [address] [id number] [place] [address]- 0089 Nov, [facility] [place] [facility] [address] [id number] [place] [address]- 1739 Nov, [facility] [place] [facility] [address] [id number] [place] [address]- 2353 Nov, [facility] [place] [facility] [address] [id number] [place] [address]- 4785 Nov, [facility] [place] [facility] [address] [id number] [place] [address]- 5388 Nov, [facility] [place] [facility] [address] [id number] [place] [address]- 9062 Nov, [facility] [place] [facility] [address] [id number] [place] [address]- 2412 Nov, [facility] [place] [facility] [address] [id number] [place] [address]- 8539 Nov, [facility] [place] [facility] [address] [id number] [place] [address]- 5154 Oct, [facility] [place] [facility] [address] [id number] [place] [address]- 0951 Oct, [facility] [place] [facility] [address] [id number] [place] [address]- 8240 Oct, [facility] [place] [facility] [address] [id number] [place] [address]- 1699 Oct, [facility] [place] [facility] [address] [id number] [place] [address]- 1031 Oct, [facility] [place] [facility] [address] [id number] [place] [address]- 7152 Oct, [facility] [place] [facility] [address] [id number] [place] [address]- 2893 Oct, [facility] [place] [facility] [address] [id number] [place] [address]- 7578 Oct, [facility] [place] [facility] [address] [id number] [place] [address]- 9038 Oct, [facility] [place] [facility] [address] [id number] [place] [address]- 2570 Sep, [facility] [place] [facility] [address] [id number] [place] [address]- 2019 Sep, [facility] [place] [facility] [address] [id number] [place] [address]- 7925 Sep, [facility] [place] [facility] [address] [id number] [place] [address]- 1289 Sep, [facility] [place] [facility] [address] [id number] [place] [address]- 1748 Sep, [facility] [place] [facility] [address] [id number] [place] [address]- 2824 Sep, [facility] [place] [facility] [address] [id number] [place] [address]- 4548 Sep, [facility] [place] [facility] [address] [id number] [place] [address]- 4728 Sep, [facility] [place] [facility] [address] [id number] [place] [address]- 3705 August, [facility] [place] [facility] [address] [id number], [place] [address]- 8752 August, [facility] [address] [id number], [place] [address]- 6281 August, [facility] [address] [id number], [place] [address]- 7513 August, [facility] [id number], [place] [address]- 9193 August, [facility] [address] [facility] [id number], [place] [address]- 9336 August, [facility] [id number], [place] [address]- 9574 August, [facility] [id number], [place] [address]- 5450 August, [facility] [id number], [place] [address] August, [facility] [id number], [place] [address]- 6472 August, [facility] [address] [id number], [place] [address]- 6111 August, [facility] [address] [id number], [place] [address]- 4236 August, [facility] [address] [id number], [place] [address]- 9816 Oct, IMMUNIZATIONS No Known Immunizations SOCIAL HISTORY [...] Hospitalization History suicidal ideations-[facility] 12/28 Hospitalization History hypoxia--[facility] 02/13/2016 Hospitalization History shortness of breath at june 2016 Hospitalization History Shortness of breath at august 2016 Hospitalization History SOB, chest pain at 12/2016
--- OUTSIDE RECORDS SUMMARY | 2018-02-11 13:08 | XMS REPORT ---
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 [place] [address]- 4733 Jun, Unspecified mood [affective] disorder F39 [facility] [id number] [place] [address] 34054- 1336 Jun, Unspecified mood [affective] disorder F39 [facility] [id number] [place] [address] 60205- 1834 Jun, [facility] [id number] [place] [address] 55577- 8245 Jun, Type 2 diabetes mellitus with hyperglycemia E11.65 ; Oxygen dependent Z99.81 ; Folliculitis L73.9 ; Dysuria R30.0 ; Encounter for contraceptive management Z30.9 and Dog bite W54.0XXA [facility] [address] [place] [address] 80567- 5734 Jun, Unspecified mood [affective] disorder F39 [facility] [id number] [place] [address] 28800- 5730 Jun, Type 2 diabetes mellitus with hyperglycemia E11.65 [facility] [address] [place] [address] 97786- 8591 May, Unspecified mood [affective] disorder F39 [facility] [address], [place] [address]- 1167 May, [facility] [id number] [place] [address] 43186- 8640 May, [facility] [address], [place] [address]- 1969 May, [facility] [id number] [place] [address] 94368- 4727 Apr, [facility] [address], [place] [address]- 0341 Apr, Unspecified mood [affective] disorder F39 [facility] [id number] [place] [address] 34595- 6347 Apr, [facility] [id number] [place] [address] 68618- 5396 Apr, [facility] [id number] [place] [address] 50269- 5041 Apr, [facility] [id number] [place] [address] 12636- 1032 Apr, Dysuria R30.0 and Well woman exam (no gynecological exam) Z00.00 [place] [id number] [place] [address] 78552- 2695 Mar, [facility] [id number] [place] [address] 50750- 0649 Mar, [facility] [address] [place] [address] [id number] Mar, Dental examination Z01.20 [place] [id number] [place] [address] 07236- 3825 Mar, Chronic diarrhea K52.9 ; Intractable vomiting with nausea, vomiting of unspecified type R11.2 ; Cellulitis, unspecified cellulitis site L03.90 ; Type 2 diabetes mellitus with diabetic polyneuropathy E11.42 and Postinflammatory hyperpigmentation L81.0 [facility] [address] [place] [address] 44927- 6407 Mar, Unspecified mood [affective] disorder F39 [facility] [address] [place] [address] 31729- 1206 Mar, Unspecified mood [affective] disorder F39 [facility] [id number] [place] [address] 74209- 9576 Mar, [facility] [id number], [place] [address]- 1172 Mar, [facility] [id number], [place] [address]- 7369 Mar, [facility] [id number], [place] [address]- 6244 Mar, [facility] [id number] [place] [address] 16820- 3126 Mar, [facility] [address] [facility] [id number], [place] [address]- 3791 Mar, [facility] [id number] [place] [address] 08153- 7419 Feb, Unspecified mood [affective] disorder F39 [facility] [id number] [place] [address] 69892- 7490 Feb, [facility] [id number], [place] [address]- 1873 Feb, [facility] [address], [place] [address]- 8803 Jan, Unspecified mood [affective] disorder F39 [facility] [place] [id number] [facility] [id number] [id number] Jan, Encounter for dental examination Z01.20 [facility] [address], [place] [address]- 9141 Jan, [facility] [id number], [place] [address]- 3081 Jan, [facility] [address], [place] [address]- 8972 Jan, [facility] [id number], [place] [address]- 5091 Jan, [facility] [address], [place] [address]- 9208 Jan, [facility] [id number] [place] [address] 69021- 0783 08 Jan, 2015 Abdominal abscess K65.1 and Dental caries K02.9 [facility] [id number] [place] [address] 10729- 0397 Jan, [facility] [id number] [place] [address] 35669- 2839 30 Dec, 2014 Diabetes with neurological manifestations, type II or unspecified type, not stated as uncontrolled 250.60 ; Essential hypertension, benign 401.1 ; Concussion 850.9 and Skin texture changes 782.8 [facility] [address] 90371- 7420 Dec, [facility] [id number] [place] [address] 75034- 1165 24 Dec, 2014 [facility] [address] 35108- 2064 Dec, [facility] [id number] [place] [address] 28684- 0589 Dec, [facility] [id number] [place] [address] 44695- 6495 17 Dec, 2014 Affective disorder 296.90 [facility] [id number] [place] [address] 92128- 4936 14 Dec, 2014 [facility] [id number] [place] [address] 72892- 2545 10 Dec, 2014 Affective disorder 296.90 [facility] [id number] [place] [address] 50281- 1470 Dec, [facility] [id number] [place] [address] 22544- 9981 Dec, [facility] [id number] [place] [address] 79224- 1032 Dec, [facility] [address] [place] [address]- 5728 Dec, [facility] [address] [place] [address] 28542- 6112 Nov, Affective disorder 296.90 [facility] [address] [place] [address] 69462 2544 Nov, [facility] [id number] [place] [address] 82267- 6515 Nov, Affective disorder 296.90 [facility] [id number] [place] [address] 44366 2546 Nov, Diarrhea 787.91 [facility] [id number] [place] [address] 84183- 9246 Nov, [facility] [id number] [place] [address] 60138- 4109 Nov, Diarrhea 787.91 [facility] [id number] [place] [address] 71867 2548 Nov, Diarrhea 787.91 and Hyperlipidemia 272.4 [facility] [id number] [place] [address] 67008- 7949 Nov, Diarrhea 787.91 [facility] [address] [place] [address] 91642 2540 Nov, Affective disorder 296.90 [facility] [id number] [place] [address] 43495 2542 Nov, Affective disorder 296.90 [facility] [address] [address]- 4390 Nov, Affective disorder 296.90 [facility] [address] [place] [address] 79715- 7542 Nov, [facility] [address] [place] [address] 10774- 3672 Nov, [facility] [address] [place] [address] 66771- 2215 Nov, [facility] [address] [address]- 0349 Nov, Episodic mood disorder 296.90 [facility] [address] [address]- 7703 Nov, [facility] [id number] [place] [address] 68061- 9220 Nov, [facility] [id number] [place] [address] 70806- 3573 Nov, [facility] [id number] [place] [address] 52345- 1355 Nov, [facility] [address] [address]- 3352 Nov, [facility] [id number] [place] [address] 67275- 6632 Nov, Lymphedema 457.1 ; Hyperlipidemia 272.4 ; Essential hypertension, benign 401.1 and Numbness of toes 782.0 [facility] [address], [place] [address]- 0966 Nov, Episodic mood disorder 296.90 [facility] [address] [address]- 7028 Oct, [facility] [address], [place] [address]- 5094 Oct, [facility] [address] [address]- 4215 Oct, [facility] [address], [place] [address]- 1778 Oct, [facility] [address], [place] [address]- 3568 Oct, [facility] [address] [address]- 7981 Oct, [facility] [address] [facility] [id number] [place] [address]- 1036 Oct, 2014 [facility] [address] [facility] [id number] [place] [address]- 0842 Oct, 2014 [facility] [address] [facility] [id number] [place] [address]- 2008 Oct, Episodic mood disorder 296.90 [facility] [address] [facility] [id number] [place] [address]- 2693 30 Sep, 2014 [facility] [address] [facility] [id number] [place] [address]- 7892 29 Sep, 2014 [facility] [address] [facility] [id number] [place] [address]- 6167 Sep, [facility] [address] [facility] [id number] [place] [address]- 5176 Sep, [facility] [address] [facility] [id number] [place] [address]- 3496 Sep, [facility] [address] [facility] [id number] [address]- 7100 Sep, Episodic mood disorder 296.90 [facility] [address] [facility] [id number] [place] [address] Sep, Unspecified episodic mood disorder 296.90 [facility] [address] [id number] [address] 18 Sep, 2014 [facility] [address] [id number], [place] [address] 18 Sep, 2014 [facility] [address] [id number] [place] [address] 16 Sep, 2014 Episodic mood disorder 296.90 [facility] [address] [id number] [address] 15 Sep, 2014 [facility] [address] [id number] [address] Sep, [facility] [id number], [place] [address] Sep, [facility] [id number] [place] [address] Sep, Hematemesis 578.0 and Vomiting 787.03 [facility] [id number] [place] [address] Sep, Episodic mood disorder 296.90 [facility] [id number] [address] Sep, [facility] [id number] [place] [address]- [address] Sep, [facility] [id number] [address] Sep, Diabetes mellitus without mention of complication, type II or unspecified type, not stated as uncontrolled 250.00 and Other chronic pain 338.29 [facility] [id number] [address] Sep, Episodic mood disorder 296.90 [facility] [id number] [place] [address] Sep, [facility] [id number] [address] Sep, Episodic mood disorder 296.90 [facility] [id number], [place] [address] Sep, [facility] [id number] [address] August, [facility] [id number] [address] August, [facility] [address] [id number] [address] August, Episodic mood disorder 296.90 [facility] [id number] [place] [address] August, [facility] [address] [id number], [place] [address] August, Unspecified episodic mood disorder 296.90 [facility] [address] [id number] [place] [address] August, Vomiting 787.03 [facility] [address] [id number] [place] [address] August, [facility] [address] [id number] [place] [address] August, [facility] [address] [id number] [place] [address] August, [facility] [id number] [place] [address] August, [facility] [id number] [address] August, [facility] [id number] [place] [address] Jul, [facility] [id number], [place] [address] Jul, [facility] [id number] [address] Jul, [facility] [id number] [address] Jun, [facility] [address] [id number] [place] [address] Jun, [facility] [address] [id number], [place] [address] Jun, [facility] [place] [facility] [address] [facility] [id number], [place] [address] Jun, [facility] [address] [id number], [place] [address]49 30 Jun, 2014 [facility] [place] [facility] [address] [id number] [place] [address] 5168 Jun, [facility] [place] [facility] [address] [id number] [place] [address]- 5488 Jun, [facility] [place] [facility] [address] [id number] [place] [address]- 2506 Jun, [facility] [place] [facility] [address] [id number] [place] [address]- 2438 Jun, [facility] [place] [facility] [address] [id number] [place] [address]- 7039 Jun, [facility] [place] [facility] [address] [id number] [place] [address]- 6833 Jun, [facility] [place] [facility] [address] [id number] [place] [address]- 5263 Jun, [facility] [place] [facility] [address] [id number] [place] [address]- 7600 Jun, [facility] [place] [facility] [address] [id number] [place] [address]- 4462 Jun, [facility] [place] [facility] [address] [id number] [place] [address]- 4956 Jun, [facility] [place] [facility] [address] [id number] [place] [address]- 5035 Jun, [facility] [place] [facility] [address] [id number] [place] [address]- 7902 Jun, [facility] [place] [facility] [address] [id number] [place] [address]- 2063 Jun, [facility] [place] [facility] [address] [id number] [place] [address]- 9955 Jun, [facility] [place] [facility] [address] [id number] [place] [address]- 4459 Jun, [facility] [place] [facility] [address] [id number] [place] [address]- 3823 21 Jun, 2014 [facility] [place] [facility] [address] [id number] [place] [address]- 9096 20 Jun, 2014 [facility] [place] [facility] [address] [id number] [place] [address]- 3586 20 Jun, 2014 [facility] [place] [facility] [address] [id number] [place] [address]- 2896 20 Jun, 2014 [facility] [place] [facility] [address] [id number] [place] [address]- 1939 20 Jun, 2014 [facility] [place] [facility] [address] [id number] [place] [address]- 4178 19 Jun, 2014 [facility] [place] [facility] [address] [id number] [place] [address]- 5896 19 Jun, 2014 [facility] [place] [facility] [address] [id number] [place] [address]- 7512 18 Jun, 2014 [facility] [place] [facility] [address] [id number] [place] [address]- 0730 18 Jun, 2014 [facility] [place] [facility] [address] [id number] [place] [address]- 2448 17 Jun, 2014 [facility] [place] [facility] [address] [id number] [place] [address]- 4482 17 Jun, 2014 [facility] [place] [facility] [address] [id number] [place] [address]- 4613 16 Jun, 2014 [facility] [place] [facility] [address] [id number] [place] [address]- 1437 16 Jun, 2014 [facility] [place] [facility] [address] [id number] [place] [address]- 9046 16 Jun, 2014 [facility] [place] [facility] [address] [id number] [place] [address]- 0126 16 Jun, 2014 [facility] [place] [facility] [address] [id number] [place] [address]- 0800 Jun, [facility] [place] [facility] [address] [id number] [place] [address]- 5766 16 Jun, 2014 [facility] [place] [facility] [address] [id number] [place] [address]- 5917 Jun, [facility] [place] [facility] [address] [id number] [place] [address]- 2324 Jun, [facility] [place] [facility] [address] [id number] [place] [address]- 7013 Jun, [facility] [place] [facility] [address] [id number] [place] [address]- 1569 Jun, [facility] [place] [facility] [address] [id number] [place] [address]- 4798 Jun, [facility] [place] [facility] [address] [id number] [place] [address]- 0388 Jun, 2014 [facility] [place] [facility] [address] [id number] [place] [address]- 3471 Jun, [facility] [place] [facility] [address] [id number] [place] [address]- 5200 Jun, [facility] [place] [facility] [address] [id number] [place] [address]- 3132 Jun, [facility] [place] [facility] [address] [id number], [place] [address]- 3817 Jun, [facility] [place] [facility] [address] [id number], [place] [address]- 9281 Jun, 2014 [facility] [place] [facility] [address] [id number] [place] [address]- 0987 Jun, [facility] [place] [facility] [address] [id number] [place] [address]- 7028 Jun, [facility] [place] [facility] [address] [id number] [place] [address]- 1650 Jun, [facility] [place] [facility] [address] [id number] [place] [address]- 7360 Jun, [facility] [place] [facility] [address] [id number] [place] [address]- 1151 Jun, [facility] [place] [facility] [address] [facility] [id number] [place] [address]- 0373 Jun, [facility] [place] [facility] [address] [facility] [id number] [place] [address]- 0158 Jun, [facility] [place] [facility] [address] [id number] [place] [address]- 5656 Jun, [facility] [place] [facility] [address] [id number] [place] [address]- 9231 Jun, [facility] [place] [facility] [address] [facility] [facility] [id number] [place] [address]- 7458 May, [facility] [place] [facility] [address] [facility] [id number] [place] [address]- 1833 May, 2014 [facility] [place] [facility] [address] [facility] [id number] [place] [address]- 6519 May, [facility] [place] [facility] [address] [id number] [place] [address]- 7749 May, [facility] [place] [facility] [address] [facility] [id number] [place] [address]- 4725 May, [facility] [place] [facility] [address] [facility] [id number] [place] [address]- 2782 May, 2014 [facility] [place] [facility] [address] [facility] [id number] [place] [address]- 2544 May, [facility] [place] [facility] [address] [facility] [id number] [place] [address]- 3659 May, 2014 [facility] [place] [facility] [address] [facility] [id number], [place] [address]- 8319 May, 2014 [facility] [place] [facility] [address] [facility] [id number], [place] [address]- 8604 May, 2014 [facility] [place] [facility] [address] [facility] [id number] [place] [address]- 2434 18 May, 2014 [facility] [place] [facility] [address] [facility] [id number] [place] [address]- 5666 18 May, 2014 [facility] [place] [facility] [address] [facility] [id number] [place] [address]- 3186 13 May, 2014 [facility] [place] [facility] [address] [facility] [id number] [place] [address]- 2545 13 May, 2014 [facility] [place] [facility] [address] [facility] [id number] [place] [address]- 8396 11 May, 2014 [facility] [place] [facility] [address] [id number] [place] [address]- 5529 May, 2014 [facility] [place] [facility] [address] [id number] [place] [address]- 1955 May, 2014 [facility] [place] [facility] [address] [facility] [id number] [place] [address]- 1100 May, 2014 [facility] [place] [facility] [address] [facility] [id number] [place] [address]- 0700 May, 2014 [facility] [place] [facility] [address] [facility] [id number] [place] [address]- 6175 May, 2014 [facility] [place] [facility] [address] [id number] [place] [address]- 2546 May, 2014 [facility] [place] [facility] [address] [facility] [id number], [place] [address]- 2543 May, 2014 [facility] [place] [facility] [address] [facility] [id number] [place] [address]- 0761 May, 2014 [facility] [place] [facility] [address] [facility] [id number], [place] [address]- 2994 05 May, 2014 [facility] [place] [facility] [id number] [place] [address]- 3717 May, [facility] [place] [facility] [address] [id number] [place] [address]- 8055 May, [facility] [place] [facility] [address] [id number] [place] [address]- 8937 May, [facility] [place] [facility] [address] [id number] [place] [address]- 4559 Apr, [facility] [place] [facility] [address] [id number] [place] [address]- 9258 Apr, [facility] [place] [facility] [address] [id number] [place] [address]- 5034 Apr, [facility] [place] [facility] [address] [id number] [place] [address]- 3476 Apr, [facility] [place] [facility] [address] [id number] [place] [address]- 2474 Apr, [facility] [place] [facility] [address] [id number] [place] [address]- 9173 Apr, [facility] [place] [facility] [address] [id number] [place] [address]- 6311 Apr, [facility] [place] [facility] [address] [id number] [place] [address]- 9760 Apr, [facility] [place] [facility] [address] [id number], [place] [address]- 6563 Apr, [facility] [place] [facility] [address] [id number], [place] [address]- 6542 Apr, [facility] [place] [facility] [address] [id number] [place] [address]- 3108 Apr, [facility] [place] [facility] [address] [id number], [place] [address]- 6257 Apr, [facility] [place] [facility] [address] [id number] [place] [address]- 3004 Apr, [facility] [place] [facility] [address] [id number] [place] [address]- 9630 Apr, [facility] [address] [id number] [place] [address]- 1052 Apr, [facility] [place] [facility] [address] [id number] [place] [address]- 2344 Apr, [facility] [place] [facility] [address] [id number] [place] [address]- 5440 Apr, [facility] [place] [facility] [address] [id number] [place] [address]- 5633 Apr, [facility] [place] [facility] [address] [id number] [place] [address]- 6593 Apr, [facility] [place] [facility] [address] [id number] [place] [address]- 6455 Apr, [facility] [address] [id number] [place] [address]- 8340 Mar, [facility] [place] [facility] [address] [id number] [place] [address]- 9298 Mar, [facility] [place] [facility] [address] [id number] [place] [address]- 7911 Mar, [facility] [place] [facility] [address] [id number] [place] [address]- 8758 Mar, [facility] [place] [facility] [address] [id number] [place] [address]- 9864 Mar, [facility] [place] [facility] [address] [id number] [place] [address]- 5371 Mar, [facility] [place] [facility] [address] [id number] [place] [address]- 9698 Mar, [facility] [place] [facility] [address] [id number] [place] [address]- 2547 18 Mar, 2014 [facility] [place] [facility] [address] [id number] [place] 8618 15 Mar, 2014 [facility] [place] [facility] [address] [id number] [place] [address]- 3067 15 Mar, 2014 [facility] [place] [facility] [address] [id number] [place] [address]- 5432 Mar, [facility] [place] [facility] [address] [id number] [place] [address]- 4176 Mar, [facility] [place] [facility] [address] [id number] [place] [address]- 4850 Mar, [facility] [place] [facility] [address] [id number] [place] [address]- 5113 Mar, [facility] [place] [facility] [address] [id number] [place] [address]- 5289 Mar, [facility] [place] [facility] [address] [id number] [place] [address]- 0026 Mar, [facility] [place] [facility] [address] [id number] [place] [address]- 4801 Feb, [facility] [place] [facility] [address] [id number] [place] [address]- 1091 Feb, [facility] [place] [facility] [address] [id number] [place] [address]- 8250 Feb, [facility] [place] [facility] [address] [id number] [place] [address]- 4042 Feb, [facility] [place] [facility] [address] [id number] [place] [address]- 4090 Feb, [facility] [place] [facility] [address] [id number] [place] [address]- 4602 Feb, [facility] [place] [facility] [address] [id number] [place] [address]- 3344 Feb, [facility] [place] [facility] [address] [id number] [place] [address]- 0978 18 Feb, 2014 [facility] [place] [facility] [address] [id number], [place] [address]- 2457 18 Feb, 2014 [facility] [place] [facility] [address] [id number] [place] [address]- 0804 17 Feb, 2014 [facility] [place] [facility] [address] [id number] [place] [address]- 0959 17 Feb, 2014 [facility] [place] [facility] [address] [id number] [place] [address]- 7521 17 Feb, 2014 [facility] [place] [facility] [address] [id number] [place] [address]- 4583 17 Feb, 2014 [facility] [place] [facility] [address] [id number] [place] [address]- 1442 Feb, [facility] [place] [facility] [address] [id number] [place] [address]- 0158 Feb, [facility] [place] [facility] [address] [id number] [place] [address]- 7852 Feb, [facility] [place] [facility] [address] [id number] [place] [address]- 9787 Feb, [facility] [place] [facility] [address] [id number] [place] [address]- 0383 Feb, [facility] [place] [facility] [address] [id number] [place] [address]- 4523 Feb, [facility] [place] [facility] [address] [id number], [place] [address]- 6937 Feb, [facility] [place] [facility] [address] [id number], [place] [address]- 1803 Feb, [facility] [place] [facility] [address] [id number] [place] [address]- 0720 Jan, [facility] [place] [facility] [address] [id number] [place] [address]- 4780 Jan, [facility] [place] [facility] [address] [id number] [place] [address]- 1136 Jan, [facility] [place] [facility] [address] [id number] [place] [address]- 5192 30 Jan, 2013 [facility] [place] [facility] [address] [id number] [place] [address]- 5206 24 Jan, 2014 [facility] [place] [facility] [address] [id number] [place] [address]- 4450 24 Jan, 2014 [facility] [place] [facility] [address] [id number] [place] [address]- 6930 Jan, [facility] [place] [facility] [address] [id number] [place] [address]- 6721 21 Jan, 2014 [facility] [place] [facility] [address] [id number] [place] [address]- 0326 20 Jan, 2014 [facility] [place] [facility] [address] [id number] [place] [address]- 7799 20 Jan, 2014 [facility] [place] [facility] [address] [id number] [place] [address]- 7397 17 Jan, 2014 [facility] [place] [facility] [address] [id number] [place] [address]- 2730 17 Jan, 2014 [facility] [place] [facility] [address] [id number] [place] [address]- 7317 17 Jan, 2014 [facility] [place] [facility] [address] [id number] [place] [address]- 8272 17 Jan, 2014 [facility] [place] [facility] [address] [id number] [place] [address]- 9288 15 Jan, 2014 [facility] [place] [facility] [address] [id number] [place] [address]- 3564 15 Jan, 2014 [facility] [place] [facility] [address] [id number] [place] [address]- 3472 14 Jan, 2014 [facility] [place] [facility] [address] [id number] [place] [address]- 9300 14 Jan, 2013 [facility] [place] [facility] [address] [id number] [place] [address]- 6941 Jan, [facility] [place] [facility] [address] [id number] [place] [address]- 1022 Jan, [facility] [place] [facility] [address] [id number] [place] [address]- 4624 Jan, [facility] [place] [facility] [address] [id number] [place] [address]- 8529 Jan, [facility] [place] [facility] [address] [id number] [place] [address]- 5577 Jan, [facility] [place] [facility] [address] [id number] [place] [address]- 8801 Jan, [facility] [place] [facility] [address] [id number] [place] [address]- 2521 Jan, [facility] [place] [facility] [address] [id number] [place] [address]- 4832 25 Dec, 2013 [facility] [place] [facility] [address] [id number], [place] [address]- 8003 25 Dec, 2013 [facility] [place] [facility] [address] [id number] [place] [address]- 9704 23 Dec, 2013 [facility] [place] [facility] [address] [id number], [place] [address]- 4021 23 Dec, 2013 [facility] [place] [facility] [address] [id number], [place] [address]- 7604 19 Dec, 2013 [facility] [place] [facility] [address] [id number], [place] [address]- 5012 19 Dec, 2013 [facility] [place] [facility] [address] [id number] [place] [address]- 7512 17 Dec, 2013 [facility] [place] [facility] [address] [id number] [place] [address]- 0378 17 Dec, 2013 [facility] [place] [facility] [address] [id number], [place] [address]- 8444 09 Dec, 2013 [facility] [place] [facility] [address] [id number], [place] [address]- 1120 09 Dec, 2013 [facility] [place] [facility] [address] [id number] [place] [address]- 5771 08 Dec, 2013 [facility] [place] [facility] [address] [id number] [place] [address]- 4863 Dec, 2013 [facility] [place] [facility] [address] [id number] [place] [address]- 7280 Dec, 2013 [facility] [place] [facility] [address] [id number] [place] [address]- 1275 Dec, 2013 [facility] [place] [facility] [address] [id number] [place] [address]- 8203 Dec, 2013 [facility] [place] [facility] [address] [id number] [place] [address]- 7003 Dec, 2013 [facility] [place] [facility] [address] [id number] [place] [address]- 6080 Dec, 2013 [facility] [place] [facility] [address] [id number] [place] [address]- 9092 Dec, 2013 [facility] [place] [facility] [address] [id number] [place] [address]- 9198 Nov, [facility] [place] [facility] [address] [id number] [place] [address]- 9116 Nov, [facility] [place] [facility] [address] [id number] [place] [address]- 8567 Nov, [facility] [place] [facility] [address] [id number] [place] [address]- 3291 Nov, [facility] [place] [facility] [address] [id number] [place] [address]- 8821 Nov, [facility] [place] [facility] [address] [id number] [place] [address]- 6708 Nov, [facility] [place] [facility] [address] [id number] [place] [address] Nov, [facility] [place] [facility] [address] [id number] [place] [address] Nov, [facility] [place] [facility] [address] [id number] [place] [address] Nov, [facility] [place] [facility] [address] [id number] [place] [address] Nov, [facility] [place] [facility] [address] [id number] [place] [address] Nov, [facility] [place] [facility] [address] [id number] [place] [address] Nov, [facility] [place] [facility] [address] [id number] [place] [address] Oct, [facility] [place] [facility] [address] [id number] [place] [address] Oct, [facility] [place] [facility] [address] [id number] [place] [address] Oct, [facility] [place] [facility] [address] [id number] [place] [address] Oct, [facility] [place] [facility] [address] [id number] [place] [address] Oct, [facility] [place] [facility] [address] [id number] [place] [address] Oct, [facility] [place] [facility] [address] [id number] [place] [address] Oct, [facility] [place] [facility] [address] [id number] [place] [address] 1274 Oct, [facility] [place] [facility] [address] [id number] [place] [address]48 Oct, [facility] [place] [facility] [address] [id number] [place] [address] Oct, [facility] [place] [facility] [address] [id number] [place] [address]- [address]36 16 Oct, 2013 [facility] [place] [facility] [address] [id number] [place] [address] 9[address] 16 Oct, 2013 [facility] [place] [facility] [address] [id number] [place] [address]- [address]35 14 Oct, 2013 [facility] [place] [facility] [address] [id number] [place] [address]- [address] 14 Oct, 2013 [facility] [place] [facility] [address] [id number] [place] [address]- [address]32 13 Oct, 2013 [facility] [place] [facility] [address] [id number] [place] [address]- 4414 13 Oct, 2013 [facility] [place] [facility] [address] [id number] [place] [address]- 2598 Oct, [facility] [place] [facility] [address] [id number] [place] [address]- 3110 27 Sep, 2013 [facility] [place] [facility] [address] [id number] [place] [address]29 27 Sep, 2013 [facility] [place] [facility] [address] [id number] [place] [address]- 4357 20 Sep, 2013 [facility] [place] [facility] [address] [id number] [place] [address]- 9461 20 Sep, 2013 [facility] [place] [facility] [address] [id number] [place] [address]- 9085 18 Sep, 2013 [facility] [place] [facility] [address] [id number] [place] [address]- 6227 18 Sep, 2013 [facility] [place] [facility] [address] [id number] [place] [address]- 3792 17 Sep, 2013 [facility] [place] [facility] [address] [id number] [place] [address]- 4746 17 Sep, 2013 [facility] [place] [facility] [address] [id number] [place] [address]- 4666 11 Sep, 2013 [facility] [place] [facility] [address] [id number] [place] [address]- 4916 11 Sep, 2013 [facility] [place] [facility] [address] [id number] [place] [address]- 1244 Sep, [facility] [place] [facility] [address] [id number] [place] [address]- 0867 Sep, [facility] [place] [facility] [address] [id number] [place] [address]278 Sep, [facility] [place] [facility] [address] [id number] [place] [address]- 1615 Sep, [facility] [place] [facility] [address] [id number] [place] [address]- 7794 Sep, [facility] [place] [facility] [address] [id number] [place] [address]- 5634 Sep, [facility] [place] [facility] [address] [id number] [place] [address]- 0835 Sep, [facility] [place] [facility] [address] [id number] [place] [address]- 0084 Sep, [facility] [place] [facility] [address] [id number] [place] [address]- 1472 Sep, [facility] [place] [facility] [address] [id number] [place] [address]- 3682 Sep, [facility] [place] [facility] [address] [id number] [place] [address]- 5946 Sep, [facility] [place] [facility] [address] [id number] [place] [address]- 5978 Sep, [facility] [place] [facility] [address] [id number] [place] [address]- 3963 August, [facility] [place] [facility] [address] [id number] [place] [address]- 1214 August, [facility] [place] [facility] [address] [id number] [place] [address]- 3240 August, [facility] [place] [facility] [address] [id number] [place] [address]- 5310 August, [facility] [place] [facility] [address] [id number] [place] [address]- 4[address] August, [facility] [place] [facility] [address] [id number] [place] [address]- 8981 August, [facility] [place] [facility] [address] [id number] [place] [address]- 3213 August, [facility] [place] [facility] [address] [id number] [place] [address]- 3494 August, [facility] [place] [facility] [address] [id number] [place] [address]- 4200 August, [facility] [place] [facility] [address] [id number] [place] [address]- 6470 August, [facility] [place] [facility] [address] [id number] [place] [address]- 7328 August, [facility] [place] [facility] [address] [id number] [place] [address]- 5267 Jul, [facility] [place] [facility] [address] [id number] [place] [address]- 9754 Jul, [facility] [place] [facility] [address] [id number] [place] [address]- 8935 Jul, [facility] [place] [facility] [address] [id number] [place] [address]- 0557 Jul, [facility] [place] [facility] [address] [id number] [place] [address]- 6941 Jul, [facility] [place] [facility] [address] [id number] [place] [address]- 3741 Jul, [facility] [place] [facility] [address] [id number] [place] [address]- 1317 Jul, [facility] [place] [facility] [address] [id number] [place] [address]- 9599 Jul, [facility] [place] [facility] [address] [id number] [place] [address]- 2936 Jul, [facility] [place] [facility] [address] [id number] [place] [address]- 3871 18 Jul, 2013 [facility] [place] [facility] [address] [id number] [place] [address]- 9520 16 Jul, 2013 [facility] [place] [facility] [address] [id number] [place] [address]- 5541 Jul, [facility] [place] [facility] [address] [id number] [place] [address]- 8613 Jul, [facility] [place] [facility] [address] [id number] [place] [address]- 3781 Jul, [facility] [place] [facility] [address] [id number] [place] [address]- 5924 Jul, [facility] [place] [facility] [address] [id number] [place] [address]- 4365 Jul, [facility] [place] [facility] [address] [id number] [place] [address]- 3102 Jul, [facility] [place] [facility] [address] [id number] [place] [address]- 1017 Jul, [facility] [place] [facility] [address] [id number] [place] [address]- 1321 Jul, [facility] [place] [facility] [address] [id number] [place] [address] Jul, [facility] [place] [facility] [address] [id number] [place] [address] 0183 Jul, [facility] [place] [facility] [address] [id number] [place] [address]- 5626 Jul, [facility] [place] [facility] [address] [id number] [place] [address]- 7529 Jul, [facility] [place] [facility] [address] [id number] [place] [address] 7084 Jun, [facility] [address] [id number] [place] [address]- 6814 Jun, [facility] [place] [facility] [address] [id number] [place] [address] 1281 Jun, [facility] [address] [id number] [place] [address]- 2111 Jun, [facility] [place] [facility] [address] [id number] [place] [address] 3714 Jun, [facility] [address] [id number] [place] [address]- 2163 Jun, [facility] [address] [id number] [place] [address]- 2091 Jun, [facility] [place] [facility] [address] [id number] [place] [address]- 3690 Jun, [facility] [address] [id number] [place] [address]- 4035 Jun, [facility] [place] [facility] [address] [id number] [place] [address]- 0063 Jun, [facility] [address] [id number] [place] [address]- 4656 Jun, [facility] [place] [facility] [address] [id number] [place] [address]- 7480 Jun, [facility] [place] [facility] [address] [id number] [place] [address]- 8657 May, [facility] [place] [facility] [address] [id number] [place] [address]- 2427 May, [facility] [place] [facility] [address] [id number] [place] [address]- 7081 Apr, [facility] [place] [facility] [address] [id number] [place] [address]- 4136 Apr, [facility] [place] [facility] [address] [id number] [place] [address]- 0980 Apr, [facility] [place] [facility] [address] [id number] [place] [address]- 5665 Apr, [facility] [place] [facility] [address] [id number] [place] [address]- 6503 Apr, [facility] [place] [facility] [address] [id number] [place] [address]- 2533 Apr, [facility] [place] [facility] [address] [id number] [place] [address]- 9235 Apr, [facility] [place] [facility] [address] [id number] [place] [address]- 3063 Apr, [facility] [place] [facility] [address] [id number] [place] [address]- 1584 Apr, [facility] [place] [facility] [address] [id number] [place] [address]- 9242 Apr, [facility] [place] [facility] [address] [id number] [place] [address]- 9267 Apr, [facility] [place] [facility] [address] [id number] [place] [address]- 0047 Mar, [facility] [place] [facility] [address] [id number] [place] [address]- 2513 16 Mar, 2013 [facility] [place] [facility] [address] [id number] [place] [address]- 5841 Mar, [facility] [place] [facility] [address] [id number] [place] [address]- 5309 Mar, [facility] [place] [facility] [address] [id number] [place] [address]- 1352 Feb, [facility] [place] [facility] [address] [id number] [place] [address] Feb, [facility] [place] [facility] [address] [id number], [place] [address]- 4[address] Feb, [facility] [place] [facility] [address] [id number] [place] [address]- 1450 Feb, [facility] [place] [facility] [address] [id number], [place] [address]- 0457 Feb, [facility] [place] [facility] [address] [id number] [place] [address]- 2893 Feb, [facility] [place] [facility] [address] [id number], [place] [address]- 0952 Feb, [facility] [place] [facility] [address] [id number] [place] [address]- 9545 Feb, [facility] [place] [facility] [address] [id number], [place] [address]- 1089 Feb, [facility] [place] [facility] [address] [id number], [place] [address]- 6071 Feb, [facility] [place] [facility] [address] [id number], [place] [address]- 6234 Feb, [facility] [place] [facility] [address] [id number], [place] [address]- 3038 Jan, [facility] [place] [facility] [address] [id number], [place] [address]- 2723 Jan, [facility] [place] [facility] [address] [id number], [place] [address]- 7941 Jan, [facility] [place] [facility] [address] [id number], [place] [address]- 4596 Jan, [facility] [place] [facility] [address] [id number], [place] [address]- 0985 Jan, [facility] [place] [facility] [address] [id number], [place] [address]- 2892 Jan, [facility] [place] [facility] [address] [id number], [place] [address]- 6256 Jan, [facility] [place] [facility] [address] [id number] [place] [address]- 7376 02 Jan, 2013 [facility] [place] [facility] [address] [id number] [place] [address]- 8436 30 Sep, 2012 [facility] [place] [facility] [address] [id number] [place] [address] 2546 25 Sep, 2012 [facility] [place] [facility] [address] [id number] [place] [address] 2546 18 Sep, 2012 [facility] [place] [facility] [address] [id number] [place] [address] 2544 17 Sep, 2012 [facility] [place] [facility] [address] [id number] [place] [address]- 8426 17 Dec, 2012 [facility] [place] [facility] [address] [id number] [place] [address]- 8649 16 Dec, 2012 [facility] [place] [facility] [address] [id number] [place] [address]- 9281 13 Dec, 2012 [facility] [place] [facility] [address] [id number] [place] [address]- 3090 11 Dec, 2012 [facility] [place] [facility] [address] [id number] [place] [address]- 9811 05 Dec, 2012 [facility] [place] [facility] [address] [id number] [place] [address]- 7987 04 Dec, 2012 [facility] [place] [facility] [address] [id number] [place] [address]- 2540 30 Nov, 2012 [facility] [place] [facility] [address] [id number] [place] [address] 2541 29 Nov, 2012 [facility] [place] [facility] [address] [id number] [place] [address] 2541 22 Nov, 2012 [facility] [place] [facility] [address] [id number] [place] [address]- 2545 16 Nov, 2012 [facility] [place] [facility] [address] [id number] [place] [address]- 1610 Nov, [facility] [place] [facility] [address] [id number] [place] [address]- 5183 Nov, [facility] [place] [facility] [address] [id number] [place] [address]- 7326 Nov, [facility] [place] [facility] [address] [id number] [place] [address]- 5992 Oct, [facility] [place] [facility] [address] [id number] [place] [address]- 5819 Oct, [facility] [place] [facility] [address] [id number] [place] [address]- 6027 Oct, [facility] [place] [facility] [address] [id number] [place] [address]- 9441 Oct, [facility] [place] [facility] [address] [id number] [place] [address]- 9126 Oct, [facility] [place] [facility] [address] [id number] [place] [address]- 1979 Oct, [facility] [place] [facility] [address] [id number] [place] [address]- 4844 Sep, [facility] [place] [facility] [address] [id number] [place] [address]- 1460 Sep, [facility] [place] [facility] [address] [id number] [place] [address]- 3480 Sep, [facility] [place] [facility] [address] [id number], [place] [address]- 3329 14 Sep, 2012 [facility] [place] [facility] [address] [id number] [place] [address]- 1086 13 Sep, 2012 [facility] [place] [facility] [address] [id number] [place] [address]- 3026 10 Sep, 2012 [facility] [place] [facility] [address] [id number] [place] [address]- 3393 07 Sep, 2012 [facility] [place] [facility] [address] [id number] [place] [address]- 0771 Sep, [facility] [address] [id number] [place] [address]- 0798 Sep, [facility] [address] [id number] [place] [address]- 3986 August, [facility] [address] [id number] [place] [address]- 2325 August, [facility] [address] [id number] [place] [address]- 2540 August, [facility] [address] [id number] [place] [address]- 4215 August, [facility] [address] [id number] [place] [address]- 7601 August, [facility] [address] [id number] [place] [address]- 2216 August, [facility] [address] [id number] [place] [address]- 4667 August, [facility] [address] [id number] [place] [address]- 2337 August, [facility] [address] [id number] [place] [address]- 9879 Jul, [facility] [address] [id number] [place] [address]- 1331 Jul, [facility] [address] [place] [id number] Jul [facility] [address] [id number] [place] [address]- 5973 Jun, [facility] [address] [id number] [place] [address]- 4373 Jun, [facility] [address] [id number] [place] [address]- 2325 Jun, [facility] [address] [id number] [place] [address]- 2509 Jun, [facility] [address] [id number] [place] [address]- 4919 Jun, [facility] [place] [facility] [address] [id number] [place] [address]- 6780 Jun, [facility] [address] [id number] [place] [address]- 9204 May, [facility] [address] [id number] [place] [address]- 4310 May, [facility] [address] [id number] [place] [address]- 7067 May, [facility] [address] [id number] [place] [address]- 8157 May, [facility] [address] [id number] [place] [address]- 5108 May, [facility] [address] [id number] [place] [address]- 5167 Apr, [facility] [address] [id number] [place] [address]- 6534 Apr, [facility] [address] [id number] [place] [address]- 2568 Apr, [facility] [address] [id number] [place] [address]- 1930 Apr, [facility] [address] [id number] [place] [address]- 5531 Apr, [facility] [place] [facility] [address] [id number] [place] [address]- 6691 Apr, [facility] [place] [facility] [address] [id number] [place] [address]- 8502 Mar, [facility] [address] [id number] [place] [address]- 5130 20 Mar, 2012 [facility] [place] [facility] [address] [id number] [place] [address]- 8283 20 Mar, 2012 [facility] [place] [facility] [address] [id number] [place] [address]- 3176 19 Mar, 2012 [facility] [place] [facility] [address] [id number] [place] [address]- 7116 19 Mar, 2012 [facility] [place] [facility] [address] [id number] [place] 1859 18 Mar, 2012 [facility] [place] [facility] [address] [id number] [place] [address]- 2258 18 Mar, 2012 [facility] [place] [facility] [address] [id number] [place] [address]- 8392 Mar, [facility] [place] [facility] [address] [id number] [place] [address]- 7760 Mar, [facility] [place] [facility] [address] [id number] [place] [address]- 7572 05 Mar, 2012 [facility] [place] [facility] [address] [id number] [place] [address]- 5288 05 Mar, 2012 [facility] [place] [facility] [address] [id number] [place] [address]- 0624 28 Feb, 2012 [facility] [place] [facility] [address] [id number] [place] [address]- 8087 28 Feb, 2012 [facility] [place] [facility] [address] [id number], [place] [address]- 7584 Feb, [facility] [place] [facility] [address] [id number] [place] [address]- 8346 Feb, [facility] [place] [facility] [address] [id number] [place] [address]- 4823 Feb, [facility] [place] [facility] [address] [id number] [place] [address]- 6936 16 Feb, 2012 [facility] [place] [facility] [address] [id number] [place] [address]- 4020 16 Feb, 2012 [facility] [place] [facility] [address] [id number] [place] [address]- 7385 Feb, [facility] [place] [facility] [address] [id number] [place] 2537 Feb, [facility] [place] [facility] [address] [id number] [place] [address]- 3309 Feb, [facility] [place] [facility] [address] [id number] [place] [address]- 5866 Feb, [facility] [place] [facility] [address] [id number] [place] [address]- 1574 Jan, [facility] [place] [facility] [address] [id number] [place] [address]- 2008 Jan, [facility] [place] [facility] [address] [id number] [place] [address]- 7239 Jan, [facility] [place] [facility] [address] [id number] [place] [address]- 0726 Jan, [facility] [place] [facility] [address] [id number] [place] [address]- 7541 Jan, [facility] [place] [facility] [address] [facility] [id number] [place] [address]- 0300 Jan, [facility] [place] [facility] [address] [id number] [place] [address]- 7230 09 Jan, 2012 [facility] [place] [facility] [address] [id number] [place] [address]- 6128 24 Sep2011 [facility] [place] [facility] [address] [id number] [place] [address]- 5162 17 Sep2011 [facility] [place] [facility] [address] [id number] [place] [address]- 3611 13 Sep2011 [facility] [place] [facility] [address] [id number] [place] [address]- 0556 Dec, [facility] [place] [facility] [address] [id number] [place] [address]- 3030 Nov, [facility] [place] [facility] [address] [id number] [place] [address]- 7243 Nov, [facility] [place] [facility] [address] [id number] [place] [address]- 4012 Nov, [facility] [place] [facility] [address] [id number] [place] [address]- 8619 Nov, [facility] [place] [facility] [address] [id number] [place] [address]- 1305 Nov, [facility] [place] [facility] [address] [id number] [place] [address]- 4057 Nov, [facility] [place] [facility] [address] [id number] [place] [address]- 9747 Nov, [facility] [place] [facility] [address] [id number] [place] [address]- 2457 Nov, [facility] [place] [facility] [address] [id number] [place] [address]- 3926 Nov, [facility] [place] [facility] [address] [id number] [place] [address]- 8202 Nov, [facility] [place] [facility] [address] [id number] [place] [address]- 4214 Nov, [facility] [place] [facility] [address] [id number] [place] [address]- 6022 Nov, [facility] [place] [facility] [address] [id number] [place] [address]- 5868 Nov, [facility] [place] [facility] [address] [id number] [place] [address]- 1866 Oct, [facility] [place] [facility] [address] [id number] [place] [address]- 5369 Oct, [facility] [place] [facility] [address] [id number] [place] [address]- 2739 Oct, [facility] [place] [facility] [address] [id number] [place] [address]- 1752 Oct, [facility] [place] [facility] [address] [id number] [place] [address]- 8313 Oct, [facility] [place] [facility] [address] [id number] [place] [address]- 5018 Oct, [facility] [place] [facility] [address] [id number] [place] [address]- 7679 Oct, [facility] [place] [facility] [address] [id number] [place] [address]- 3158 Oct, [facility] [place] [facility] [address] [id number] [place] [address]- 0406 Oct, [facility] [place] [facility] [address] [id number] [place] [address]- 5886 Sep, [facility] [place] [facility] [address] [id number] [place] [address]- 7321 Sep, [facility] [place] [facility] [address] [id number] [place] [address]- 1674 Sep, [facility] [place] [facility] [address] [id number] [place] [address]- 9707 Sep, [facility] [place] [facility] [address] [id number] [place] [address]- 3868 Sep, [facility] [place] [facility] [address] [id number] [place] [address]- 3776 Sep, [facility] [place] [facility] [address] [id number] [place] [address]- 8823 Sep, [facility] [place] [facility] [address] [id number] [place] [address]- 1466 Sep, [facility] [place] [facility] [address] [id number] [place] [address]- 4196 August, [facility] [place] [facility] [address] [id number], [place] [address]- 8880 August, [facility] [address] [id number], [place] [address]- 7230 August, [facility] [address] [id number], [place] [address]- 9622 August, [facility] [id number], [place] [address]- 7638 August, [facility] [address] [facility] [id number], [place] [address]- 6323 August, [facility] [id number], [place] [address]- 0158 August, [facility] [id number], [place] [address]- 3215 August, [facility] [id number], [place] [address]- 7969 August, [facility] [id number], [place] [address]- 4121 August, [facility] [address] [id number], [place] [address]- 7162 August, [facility] [address] [id number], [place] [address]- 7162 August, [facility] [address] [id number], [place] [address]- 5466 Oct, IMMUNIZATIONS No Known Immunizations SOCIAL HISTORY [...] Hospitalization History suicidal ideations-[facility] 12/28 Hospitalization History hypoxia--[facility] 02/13/2016 Hospitalization History shortness of breath at june 2016 Hospitalization History Shortness of breath at august 2016 Hospitalization History SOB, chest pain at 12/2016
--- OUTSIDE RECORDS SUMMARY | 2018-02-11 13:10 | XMS REPORT ---
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 [address] 79093- 8284 Jun, Unspecified mood [affective] disorder F39 [facility] [id number] [place] [address] 46245- 3546 Jun, [facility] [id number] [place] [address] 85343- 3082 Jun, Type 2 diabetes mellitus with hyperglycemia E11.65 ; Oxygen dependent Z99.81 ; Folliculitis L73.9 ; Dysuria R30.0 ; Encounter for contraceptive management Z30.9 and Dog bite W54.0XXA [facility] [address] [place] [address] 90032- 1674 Jun, Unspecified mood [affective] disorder F39 [facility] [address] [place] [address] 09785- 4789 Jun, Type 2 diabetes mellitus with hyperglycemia E11.65 [facility] [address] [place] [address] 95207- 4053 May, Unspecified mood [affective] disorder F39 [facility] [address] [address]- 3871 May, [facility] [id number] [place] [address] 70317- 6749 May, [facility] [address], [place] [address]- 8489 May, [facility] [id number] [place] [address] 86221- 8501 Apr, [facility] [address], [place] [address]- 4596 Apr, Unspecified mood [affective] disorder F39 [facility] [id number] [place] [address] 46663- 9703 Apr, [facility] [id number] [place] [address] 21016- 4054 Apr, [facility] [id number] [place] [address] 12065- 6013 Apr, [facility] [id number] [place] [address] 22849- 1996 Apr, Dysuria R30.0 and Well woman exam (no gynecological exam) Z00.00 [place] [id number] [place] [address] 96306- 5480 Mar, [facility] [id number] [place] [address] 48742- 5180 Mar, [facility] [address] [place] [address] [id number] Mar, Dental examination Z01.20 [place] [id number] [place] [address] 55139- 4124 Mar, Chronic diarrhea K52.9 ; Intractable vomiting with nausea, vomiting of unspecified type R11.2 ; Cellulitis, unspecified cellulitis site L03.90 ; Type 2 diabetes mellitus with diabetic polyneuropathy E11.42 and Postinflammatory hyperpigmentation L81.0 [facility] [address] [place] [address] 30646- 6487 Mar, Unspecified mood [affective] disorder F39 [facility] [id number] [place] [address] 51458- 3596 Mar, Unspecified mood [affective] disorder F39 [facility] [id number] [place] [address] 77761- 8687 Mar, [facility] [address] [id number], [place] [address]- 5291 Mar, [facility] [address] [id number], [place] [address]- 3305 Mar, [facility] [address] [id number], [place] [address]- 8219 Mar, [facility] [id number] [place] [address] 96108- 4181 Mar, [facility] [address] [facility] [place] [id number], [place] [address]- 9010 Mar, [facility] [id number] [place] [address] 58715- 9825 Feb, Unspecified mood [affective] disorder F39 [facility] [id number] [place] [address] 02471- 9347 Feb, [facility] [address] [id number], [place] [address]- 6335 Feb, [facility] [address], [place] [address]- 4516 Jan, Unspecified mood [affective] disorder F39 [facility] [place] [id number] [facility] [address] [id number] [id number] Jan, Encounter for dental examination Z01.20 [facility] [address], [place] [address]- 3467 Jan, [facility] [address] [id number], [place] [address]- 5782 Jan, [facility] [address], [place] [address]- 5561 Jan, [facility] [address] [id number], [place] [address]- 8573 Jan, [facility] [address], [place] [address]- 0673 Jan, [facility] [id number] [place] [address] 84975- 7224 08 Jan, 2015 Abdominal abscess K65.1 and Dental caries K02.9 [facility] [id number] [place] [address] 71998- 2518 Jan, [facility] [id number] [place] [address] 34631- 2314 30 Dec, 2014 Diabetes with neurological manifestations, type II or unspecified type, not stated as uncontrolled 250.60 ; Essential hypertension, benign 401.1 ; Concussion 850.9 and Skin texture changes 782.8 [facility] [address] 45523- 8389 Dec, [facility] [id number] [place] [address] 53917- 6185 24 Dec, 2014 [facility] [address] 55069- 8492 Dec, [facility] [id number] [place] [address] 85033- 6076 Dec, [facility] [id number] [place] [address] 97091- 5997 17 Dec, 2014 Affective disorder 296.90 [facility] [id number] [place] [address] 68450- 7800 14 Dec, 2014 [facility] [id number] [place] [address] 87949- 2544 10 Dec, 2014 Affective disorder 296.90 [facility] [id number] [place] [address] 80745- 5878 Dec, [facility] [id number] [place] [address] 77364- 4338 Dec, [facility] [id number] [place] [address] 46092- 4604 Dec, [facility] [address] [place] [address]- 8036 Dec, [facility] [address] [place] [address] 43821- 9104 Nov, Affective disorder 296.90 [facility] [id number] [place] [address] 49885 2545 Nov, [facility] [id number] [place] [address] 36725- 9556 Nov, Affective disorder 296.90 [facility] [id number] [place] [address] 83902 2546 Nov, Diarrhea 787.91 [facility] [id number] [place] [address] 64999- 2606 Nov, [facility] [id number] [place] [address] 44379- 4586 Nov, Diarrhea 787.91 [facility] [id number] [place] [address] 81952 2545 Nov, Diarrhea 787.91 and Hyperlipidemia 272.4 [facility] [id number] [place] [address] 86792- 6871 Nov, Diarrhea 787.91 [facility] [id number] [place] [address] 64203 2544 Nov, Affective disorder 296.90 [facility] [id number] [place] [address] 61332 254 Nov, Affective disorder 296.90 [facility] [address] [address]- 0114 Nov, Affective disorder 296.90 [facility] [address] [place] [address] 87651- 6155 Nov, [facility] [id number] [place] [address] 80671- 3802 Nov, [facility] [address] [place] [address] 70009- 8502 Nov, [facility] [address] [address]- 3283 Nov, Episodic mood disorder 296.90 [facility] [address] [address]- 4068 Nov, [facility] [id number] [place] [address] 55702- 0640 Nov, [facility] [id number] [place] [address] 57128- 0391 Nov, [facility] [id number] [place] [address] 26858- 2502 Nov, [facility] [address] [address]- 1135 Nov, [facility] [id number] [place] [address] 98632- 0110 Nov, Lymphedema 457.1 ; Hyperlipidemia 272.4 ; Essential hypertension, benign 401.1 and Numbness of toes 782.0 [facility] [address] [address]- 2583 Nov, Episodic mood disorder 296.90 [facility] [address] [address]- 5819 Oct, [facility] [address] [address] Oct, [facility] [address], [place] [address] Oct, [facility] [id number] [address] Oct, [facility] [address] [address] Oct, [facility] [address] [address] Oct, [facility] [address] [facility] [place] [id number] [place] [address] Oct, 2014 [facility] [address] [facility] [place] [id number] [place] [address] Oct, 2014 [facility] [address] [facility] [place] [id number] [place] [address] Oct, Episodic mood disorder 296.90 [facility] [address] [facility] [place] [id number] [place] [address] 30 Sep, 2014 [facility] [address] [facility] [place] [id number] [place] [address] 29 Sep, 2014 [facility] [address] [facility] [place] [id number] [place] [address] Sep, [facility] [address] [facility] [place] [id number] [place] [address] Sep, [facility] [address] [facility] [place] [id number] [place] [address] Sep, [facility] [address] [facility] [id number] [address] Sep, Episodic mood disorder 296.90 [facility] [address] [facility] [place] [id number] [place] [address] Sep, Unspecified episodic mood disorder 296.90 [facility] [address] [facility] [id number], [place] [address] 18 Sep, 2014 [facility] [address] [facility] [place] [id number], [place] [address] 18 Sep, 2014 [facility] [address] [facility] [place] [id number] [place] [address] 16 Sep, 2014 Episodic mood disorder 296.90 [facility] [address] [facility] [place] [id number], [place] [address] 15 Sep, 2014 [facility] [id number] [address] Sep, [facility] [id number], [place] [address] Sep, [facility] [id number] [place] [address] Sep, Hematemesis 578.0 and Vomiting 787.03 [facility] [id number] [place] [address] Sep, Episodic mood disorder 296.90 [facility] [id number], [place] [address] Sep, [facility] [id number] [place] [address] Sep, [facility] [id number], [place] [address] Sep, Diabetes mellitus without mention of complication, type II or unspecified type, not stated as uncontrolled 250.00 and Other chronic pain 338.29 [facility] [address], [place] [address] Sep, Episodic mood disorder 296.90 [facility] [id number] [place] [address] Sep, [facility] [id number] [address] Sep, Episodic mood disorder 296.90 [facility] [id number] [address] Sep, [facility] [id number], [place] [address] August, [facility] [id number], [place] [address] August, [facility] [address] [id number] [address] August, Episodic mood disorder 296.90 [facility] [id number] [place] [address] August, [facility] [address] [facility] [id number] [address] August, Unspecified episodic mood disorder 296.90 [facility] [address] [facility] [place] [id number] [place] [address] August, Vomiting 787.03 [facility] [address] [facility] [place] [id number] [place] [address] 39[address] August, [facility] [address] [facility] [place] [id number] [place] [address] 6[address] August, [facility] [address] [facility] [place] [id number] [place] [address] 79[address] August, [facility] [address] [id number] [place] [address] 1788 August, [facility] [address] [id number] [address] 130[address] August, [facility] [address] [id number] [place] [address]- 6098 Jul, [facility] [address] [id number] [address] 66[address] Jul, [facility] [address] [id number] [address] 4[address] Jul, [facility] [address] [id number] [address] 8[address] Jun, [facility] [address] [facility] [place] [id number] [place] [address]- 6167 Jun, [facility] [address] [facility] [place] [id number], [place] [address] 3[address] Jun, [facility] [place] [facility] [address] [facility] [place] [id number], [place] [address]- [address] Jun, [facility] [address] [id number], [place] [address] 30 Jun, 2014 [facility] [place] [facility] [address] [id number] [place] [address]- 2073 Jun, [facility] [place] [facility] [address] [id number] [place] [address]- 4702 Jun, [facility] [place] [facility] [address] [id number] [place] [address]- 4070 Jun, [facility] [place] [facility] [address] [id number] [place] [address]- 5050 Jun, [facility] [place] [facility] [address] [id number] [place] [address]- 6552 Jun, [facility] [place] [facility] [address] [id number] [place] [address]- 7769 Jun, [facility] [place] [facility] [address] [id number] [place] [address]- 2097 Jun, [facility] [place] [facility] [address] [id number] [place] [address]- 6356 Jun, [facility] [place] [facility] [address] [id number] [place] [address]- 9523 Jun, [facility] [place] [facility] [address] [id number] [place] [address]- 1055 Jun, [facility] [place] [facility] [address] [id number] [place] [address]- 7574 Jun, [facility] [place] [facility] [address] [id number] [place] [address]- 0678 Jun, [facility] [place] [facility] [address] [id number] [place] [address]- 6126 Jun, [facility] [place] [facility] [address] [id number] [place] [address]- 9279 Jun, [facility] [place] [facility] [address] [id number] [place] [address]- 9585 Jun, [facility] [place] [facility] [address] [id number] [place] [address]- 8838 21 Jun, 2014 [facility] [place] [facility] [address] [id number] [place] [address]- 3976 20 Jun, 2014 [facility] [place] [facility] [address] [id number] [place] [address]- 1186 20 Jun, 2014 [facility] [place] [facility] [address] [id number] [place] [address]- 3256 20 Jun, 2014 [facility] [place] [facility] [address] [id number] [place] [address]- 9984 20 Jun, 2014 [facility] [place] [facility] [address] [id number] [place] [address]- 1396 19 Jun, 2014 [facility] [place] [facility] [address] [id number] [place] [address]- 9237 19 Jun, 2014 [facility] [place] [facility] [address] [id number] [place] [address]- 0796 18 Jun, 2014 [facility] [place] [facility] [address] [id number] [place] [address]- 0353 18 Jun, 2014 [facility] [place] [facility] [address] [id number] [place] [address]- 9575 17 Jun, 2014 [facility] [place] [facility] [address] [id number] [place] [address]- 9281 17 Jun, 2014 [facility] [place] [facility] [address] [id number] [place] [address]- 3282 16 Jun, 2014 [facility] [place] [facility] [address] [id number] [place] [address]- 5208 16 Jun, 2014 [facility] [place] [facility] [address] [id number] [place] [address]- 9626 16 Jun, 2014 [facility] [place] [facility] [address] [id number] [place] [address]- 1466 16 Jun, 2014 [facility] [place] [facility] [address] [id number] [place] [address]- 3341 Jun, [facility] [place] [facility] [address] [id number] [place] [address]- 4663 16 Jun, 2014 [facility] [place] [facility] [address] [id number] [place] [address]- 7186 Jun, [facility] [place] [facility] [address] [id number] [place] [address]- 5889 Jun, [facility] [place] [facility] [address] [id number] [place] [address]- 3758 Jun, [facility] [place] [facility] [address] [id number] [place] [address]- 8292 Jun, [facility] [place] [facility] [address] [id number] [place] [address]- 0577 Jun, [facility] [place] [facility] [address] [id number] [place] [address]- 1568 Jun, 2014 [facility] [place] [facility] [address] [id number] [place] [address]- 6984 Jun, [facility] [place] [facility] [address] [id number] [place] [address]- 5609 Jun, [facility] [place] [facility] [address] [id number] [place] [address]- 8552 Jun, [facility] [place] [facility] [address] [id number], [place] [address]- 3223 Jun, [facility] [place] [facility] [address] [id number], [place] [address]- 9576 Jun, 2014 [facility] [place] [facility] [address] [id number] [place] [address]- 9351 Jun, [facility] [place] [facility] [address] [id number] [place] [address]- 1970 Jun, [facility] [place] [facility] [address] [id number] [place] [address]- 1934 Jun, [facility] [place] [facility] [address] [id number] [place] [address]- 0653 Jun, [facility] [place] [facility] [address] [id number] [place] [address]- 7917 Jun, [facility] [place] [facility] [address] [facility] [place] [id number] [place] [address]- 6412 Jun, [facility] [place] [facility] [address] [facility] [place] [id number] [place] [address]- 5162 Jun, [facility] [place] [facility] [address] [id number] [place] [address]- 4523 Jun, [facility] [place] [facility] [address] [id number] [place] [address]- 4393 Jun, [facility] [place] [facility] [address] [facility] [place] [id number] [place] [address]- 3095 May, [facility] [place] [facility] [address] [facility] [place] [id number] [place] [address]- 8025 May, 2014 [facility] [place] [facility] [address] [facility] [place] [id number] [place] [address]- 8368 May, [facility] [place] [facility] [address] [id number] [place] [address]- 1486 May, [facility] [place] [facility] [address] [facility] [place] [id number] [place] [address]- 0070 May, [facility] [place] [facility] [address] [facility] [place] [id number] [place] [address]- 3985 May, 2014 [facility] [place] [facility] [address] [facility] [place] [id number] [place] [address]- 2543 May, [facility] [place] [facility] [address] [facility] [place] [id number] [place] [address]- 9343 May, 2014 [facility] [place] [facility] [address] [facility] [place] [id number], [place] [address]- 3667 May, 2014 [facility] [place] [facility] [address] [facility] [place] [id number], [place] [address]- 0973 May, 2014 [facility] [place] [facility] [address] [facility] [place] [id number] [place] [address]- 3397 18 May, 2014 [facility] [place] [facility] [address] [facility] [place] [id number] [place] [address]- 3296 18 May, 2014 [facility] [place] [facility] [address] [facility] [place] [id number] [place] [address]- 9296 13 May, 2014 [facility] [place] [facility] [address] [facility] [place] [id number] [place] [address]- 2548 13 May, 2014 [facility] [place] [facility] [address] [facility] [place] [id number] [place] [address]- 1807 11 May, 2014 [facility] [place] [facility] [address] [id number] [place] [address]- 2484 May, 2014 [facility] [place] [facility] [address] [id number] [place] [address]- 4651 May, 2014 [facility] [place] [facility] [address] [facility] [place] [id number] [place] [address]- 2610 May, 2014 [facility] [place] [facility] [address] [facility] [place] [id number] [place] [address]- 6386 May, 2014 [facility] [place] [facility] [address] [facility] [place] [id number] [place] [address]- 1029 May, 2014 [facility] [place] [facility] [address] [id number] [place] [address]- 2546 May, 2014 [facility] [place] [facility] [address] [facility] [place] [id number], [place] [address]- 2544 May, 2014 [facility] [place] [facility] [address] [facility] [place] [id number] [place] [address]- 1764 May, 2014 [facility] [place] [facility] [address] [facility] [place] [id number], [place] [address]- 5485 05 May, 2014 [facility] [place] [facility] [id number] [place] [address]- 4732 May, [facility] [place] [facility] [address] [id number] [place] [address]- 5298 May, [facility] [place] [facility] [address] [id number] [place] [address]- 6444 May, [facility] [place] [facility] [address] [id number] [place] [address]- 1770 Apr, [facility] [place] [facility] [address] [id number] [place] [address]- 3936 Apr, [facility] [place] [facility] [address] [id number] [place] [address]- 7110 Apr, [facility] [place] [facility] [address] [id number] [place] [address]- 4246 Apr, [facility] [place] [facility] [address] [id number] [place] [address]- 2664 Apr, [facility] [place] [facility] [address] [id number] [place] [address]- 8619 Apr, [facility] [place] [facility] [address] [id number] [place] [address]- 4419 Apr, [facility] [place] [facility] [address] [id number] [place] [address]- 2076 Apr, [facility] [place] [facility] [address] [id number], [place] [address]- 3952 Apr, [facility] [place] [facility] [address] [id number], [place] [address]- 4356 Apr, [facility] [place] [facility] [address] [id number] [place] [address]- 9227 Apr, [facility] [place] [facility] [address] [id number], [place] [address]- 1722 Apr, [facility] [place] [facility] [address] [id number] [place] [address]- 5954 Apr, [facility] [place] [facility] [address] [id number] [place] [address]- 1234 Apr, [facility] [address] [id number] [place] [address]- 5763 Apr, [facility] [place] [facility] [address] [id number] [place] [address]- 9938 Apr, [facility] [place] [facility] [address] [id number] [place] [address]- 2227 Apr, [facility] [place] [facility] [address] [id number] [place] [address]- 5898 Apr, [facility] [place] [facility] [address] [id number] [place] [address]- 0879 Apr, [facility] [place] [facility] [address] [id number] [place] [address]- 7153 Apr, [facility] [address] [id number] [place] [address]- 3959 Mar, [facility] [place] [facility] [address] [id number] [place] [address]- 7649 Mar, [facility] [place] [facility] [address] [id number] [place] [address]- 1621 Mar, [facility] [place] [facility] [address] [id number] [place] [address]- 8717 Mar, [facility] [place] [facility] [address] [id number] [place] [address]- 2598 Mar, [facility] [place] [facility] [address] [id number] [place] [address]- 5489 Mar, [facility] [place] [facility] [address] [id number] [place] [address]- 3049 Mar, [facility] [place] [facility] [address] [id number] [place] [address]- 0590 18 Mar, 2014 [facility] [place] [facility] [address] [id number] [place] 4558 15 Mar, 2014 [facility] [place] [facility] [address] [id number] [place] [address]- 0897 15 Mar, 2014 [facility] [place] [facility] [address] [id number] [place] [address]- 8284 Mar, [facility] [place] [facility] [address] [id number] [place] [address]- 0602 Mar, [facility] [place] [facility] [address] [id number] [place] [address]- 3933 Mar, [facility] [place] [facility] [address] [id number] [place] [address]- 3331 Mar, [facility] [place] [facility] [address] [id number] [place] [address]- 5708 Mar, [facility] [place] [facility] [address] [id number] [place] [address]- 2076 Mar, [facility] [place] [facility] [address] [id number] [place] [address]- 7599 Feb, [facility] [place] [facility] [address] [id number] [place] [address]- 9761 Feb, [facility] [place] [facility] [address] [id number] [place] [address]- 2863 Feb, [facility] [place] [facility] [address] [id number] [place] [address]- 5109 Feb, [facility] [place] [facility] [address] [id number] [place] [address]- 3901 Feb, [facility] [place] [facility] [address] [id number] [place] [address]- 6484 Feb, [facility] [place] [facility] [address] [id number] [place] [address]- 7432 Feb, [facility] [place] [facility] [address] [id number] [place] [address]- 3247 18 Feb, 2014 [facility] [place] [facility] [address] [id number], [place] [address]- 0721 18 Feb, 2014 [facility] [place] [facility] [address] [id number] [place] [address]- 9981 17 Feb, 2014 [facility] [place] [facility] [address] [id number] [place] [address]- 3594 17 Feb, 2014 [facility] [place] [facility] [address] [id number] [place] [address]- 0433 17 Feb, 2014 [facility] [place] [facility] [address] [id number] [place] [address]- 7399 17 Feb, 2014 [facility] [place] [facility] [address] [id number] [place] [address]- 7539 Feb, [facility] [place] [facility] [address] [id number] [place] [address]- 4216 Feb, [facility] [place] [facility] [address] [id number] [place] [address]- 5574 Feb, [facility] [place] [facility] [address] [id number] [place] [address]- 9154 Feb, [facility] [place] [facility] [address] [id number] [place] [address]- 3147 Feb, [facility] [place] [facility] [address] [id number] [place] [address]- 7311 Feb, [facility] [place] [facility] [address] [id number], [place] [address]- 6650 Feb, [facility] [place] [facility] [address] [id number], [place] [address]- 7678 Feb, [facility] [place] [facility] [address] [id number] [place] [address]- 3918 Jan, [facility] [place] [facility] [address] [id number] [place] [address]- 1592 Jan, [facility] [place] [facility] [address] [id number] [place] [address]- 2257 Jan, [facility] [place] [facility] [address] [id number] [place] [address]- 8295 30 Jan, 2013 [facility] [place] [facility] [address] [id number] [place] [address]- 3587 24 Jan, 2014 [facility] [place] [facility] [address] [id number] [place] [address]- 6394 24 Jan, 2014 [facility] [place] [facility] [address] [id number] [place] [address]- 7147 Jan, [facility] [place] [facility] [address] [id number] [place] [address]- 2308 21 Jan, 2014 [facility] [place] [facility] [address] [id number] [place] [address]- 4257 20 Jan, 2014 [facility] [place] [facility] [address] [id number] [place] [address]- 5578 20 Jan, 2014 [facility] [place] [facility] [address] [id number] [place] [address]- 6433 17 Jan, 2014 [facility] [place] [facility] [address] [id number] [place] [address]- 7671 17 Jan, 2014 [facility] [place] [facility] [address] [id number] [place] [address]- 1104 17 Jan, 2014 [facility] [place] [facility] [address] [id number] [place] [address]- 6564 17 Jan, 2014 [facility] [place] [facility] [address] [id number] [place] [address]- 4752 15 Jan, 2014 [facility] [place] [facility] [address] [id number] [place] [address]- 0156 15 Jan, 2014 [facility] [place] [facility] [address] [id number] [place] [address]- 4864 14 Jan, 2014 [facility] [place] [facility] [address] [id number] [place] [address]- 2629 14 Jan, 2013 [facility] [place] [facility] [address] [id number] [place] [address]- 7371 Jan, [facility] [place] [facility] [address] [id number] [place] [address]- 9682 Jan, [facility] [place] [facility] [address] [id number] [place] [address]- 2886 Jan, [facility] [place] [facility] [address] [id number] [place] [address]- 0789 Jan, [facility] [place] [facility] [address] [id number] [place] [address]- 8930 Jan, [facility] [place] [facility] [address] [id number] [place] [address]- 0159 Jan, [facility] [place] [facility] [address] [id number] [place] [address]- 8803 Jan, [facility] [place] [facility] [address] [id number] [place] [address]- [address] 25 Dec, 2013 [facility] [place] [facility] [address] [id number], [place] [address] 25 Dec, 2013 [facility] [place] [facility] [address] [id number] [place] [address] 23 Dec, 2013 [facility] [place] [facility] [address] [id number], [place] [address] 23 Dec, 2013 [facility] [place] [facility] [address] [id number], [place] [address] 19 Dec, 2013 [facility] [place] [facility] [address] [id number], [place] [address] 19 Dec, 2013 [facility] [place] [facility] [address] [id number] [place] [address] 17 Dec, 2013 [facility] [place] [facility] [address] [id number] [place] [address] 3598 17 Dec, 2013 [facility] [place] [facility] [address] [id number], [place] [address] 09 Dec, 2013 [facility] [place] [facility] [address] [id number], [place] [address] 09 Dec, 2013 [facility] [place] [facility] [address] [id number] [place] [address] 08 Dec, 2013 [facility] [place] [facility] [address] [id number] [place] [address] Dec, 2013 [facility] [place] [facility] [address] [id number] [place] [address] 9787 Dec, 2013 [facility] [place] [facility] [address] [id number] [place] [address] Dec, 2013 [facility] [place] [facility] [address] [id number] [place] [address]- [address] Dec, 2013 [facility] [place] [facility] [address] [id number] [place] [address] Dec, 2013 [facility] [place] [facility] [address] [id number] [place] [address]166 Dec, 2013 [facility] [place] [facility] [address] [id number] [place] [address]- 2947 Dec, 2013 [facility] [place] [facility] [address] [id number] [place] [address] Nov, [facility] [place] [facility] [address] [id number] [place] [address]90 Nov, [facility] [place] [facility] [address] [id number] [place] [address] 8090 Nov, [facility] [place] [facility] [address] [id number] [place] [address] Nov, [facility] [place] [facility] [address] [id number] [place] [address] 1430 Nov, [facility] [place] [facility] [address] [id number] [place] [address]686 Nov, [facility] [place] [facility] [address] [id number] [place] [address] 7819 Nov, [facility] [place] [facility] [address] [id number] [place] [address] 9[address] Nov, [facility] [place] [facility] [address] [id number] [place] [address]- 5860 Nov, [facility] [place] [facility] [address] [id number] [place] [address] 0656 Nov, [facility] [place] [facility] [address] [id number] [place] [address]- 1779 Nov, [facility] [place] [facility] [address] [id number] [place] [address] 56[address] Nov, [facility] [place] [facility] [address] [id number] [place] [address] 96[address] Oct, [facility] [place] [facility] [address] [id number] [place] [address] 8847 Oct, [facility] [place] [facility] [address] [id number] [place] [address] 9530 Oct, [facility] [place] [facility] [address] [id number] [place] [address] 7176 Oct, [facility] [place] [facility] [address] [id number] [place] [address] 4317 Oct, [facility] [place] [facility] [address] [id number] [place] [address] 3757 Oct, [facility] [place] [facility] [address] [id number] [place] [address] 6826 Oct, [facility] [place] [facility] [address] [id number] [place] [address]- 2491 Oct, [facility] [place] [facility] [address] [id number] [place] [address] 3450 Oct, [facility] [place] [facility] [address] [id number] [place] [address]- [address] Oct, [facility] [place] [facility] [address] [id number] [place] [address]- 4151 16 Oct, 2013 [facility] [place] [facility] [address] [id number] [place] [address] 16 Oct, 2013 [facility] [place] [facility] [address] [id number] [place] [address]- 3416 14 Oct, 2013 [facility] [place] [facility] [address] [id number] [place] [address]- 5319 14 Oct, 2013 [facility] [place] [facility] [address] [id number] [place] [address]- 6177 13 Oct, 2013 [facility] [place] [facility] [address] [id number] [place] [address]- [address]199 13 Oct, 2013 [facility] [place] [facility] [address] [id number] [place] [address]- 7979 Oct, [facility] [place] [facility] [address] [id number] [place] [address]- 3942 27 Sep, 2013 [facility] [place] [facility] [address] [id number] [place] [address]- 2804 27 Sep, 2013 [facility] [place] [facility] [address] [id number] [place] [address]- 3670 20 Sep, 2013 [facility] [place] [facility] [address] [id number] [place] [address]- 6752 20 Sep, 2013 [facility] [place] [facility] [address] [id number] [place] [address]- 6624 18 Sep, 2013 [facility] [place] [facility] [address] [id number] [place] [address]- 4253 18 Sep, 2013 [facility] [place] [facility] [address] [id number] [place] [address]- 2539 17 Sep, 2013 [facility] [place] [facility] [address] [id number] [place] [address]- 0608 17 Sep, 2013 [facility] [place] [facility] [address] [id number] [place] [address]- 5226 11 Sep, 2013 [facility] [place] [facility] [address] [id number] [place] [address]- 9916 11 Sep, 2013 [facility] [place] [facility] [address] [id number] [place] [address]- [address]406 Sep, [facility] [place] [facility] [address] [id number] [place] [address]- 9023 Sep, [facility] [place] [facility] [address] [id number] [place] [address]- [address]379 Sep, [facility] [place] [facility] [address] [id number] [place] [address]- 5884 Sep, [facility] [place] [facility] [address] [id number] [place] [address]- 2053 Sep, [facility] [place] [facility] [address] [id number] [place] [address]- 1523 Sep, [facility] [place] [facility] [address] [id number] [place] [address]- 7857 Sep, [facility] [place] [facility] [address] [id number] [place] [address]- 8888 Sep, [facility] [place] [facility] [address] [id number] [place] [address]- 5293 Sep, [facility] [place] [facility] [address] [id number] [place] [address]- 6505 Sep, [facility] [place] [facility] [address] [id number] [place] [address]- 6197 Sep, [facility] [facility] [address] [id number] [place] [address] Sep, [facility] [place] [facility] [address] [id number] [place] [address] 80[address] August, [facility] [place] [facility] [address] [id number] [place] [address] 6304 August, [facility] [place] [facility] [address] [id number] [place] [address] 4462 August, [facility] [place] [facility] [address] [id number] [place] [address] 0127 August, [facility] [place] [facility] [address] [id number] [place] [address] 2166 August, [facility] [address] [id number] [place] [address] August, [facility] [place] [facility] [address] [id number] [place] [address]- 2907 August, [facility] [place] [facility] [address] [id number] [place] [address] 6472 August, [facility] [place] [facility] [address] [id number] [place] [address] 9595 August, [facility] [address] [id number] [place] [address] 270[address] August, [facility] [facility] [address] [id number] [place] [address] 1993 August, [facility] [facility] [address] [id number] [place] [address] Jul, [facility] [place] [facility] [address] [id number] [place] [address]- 0464 Jul, [facility] [address] [id number] [place] [address] 7439 Jul, [facility] [place] [facility] [address] [id number] [place] [address]- 4689 Jul, [facility] [place] [facility] [address] [id number] [place] [address]- 0034 Jul, [facility] [place] [facility] [address] [id number] [place] [address]- 7135 Jul, [facility] [address] [id number] [place] [address] 1999 Jul, [facility] [place] [facility] [address] [id number] [place] [address]- 3795 Jul, [facility] [place] [facility] [address] [id number] [place] [address]- 1438 Jul, [facility] [place] [address] [id number] [place] [address]- 7253 18 Jul, 2013 [facility] [address] [id number] [place] [address]- 4077 16 Jul, 2013 [facility] [facility] [address] [id number] [place] [address]- 3645 Jul, [facility] [place] [facility] [address] [id number] [place] [address]- 5522 Jul, [facility] [place] [address] [id number] [place] [address]- 8619 Jul, [facility] [place] [facility] [address] [id number] [place] [address]- 5237 Jul, [facility] [address] [id number] [place] [address]- 3113 Jul, [facility] [address] [id number] [place] [address]- 3201 Jul, [facility] [place] [facility] [address] [id number] [place] [address]- 3522 Jul, [facility] [facility] [address] [id number] [place] [address]- 0514 Jul, [facility] [address] [id number] [place] [address]- 5111 Jul, [facility] [address] [id number] [place] [address]- 2499 Jul, [facility] [address] [id number] [place] [address]- 2792 Jul, [facility] [address] [id number] [place] [address]- 1868 Jul, [facility] [address] [id number] [place] [address]- 7554 Jun, [facility] [address] [id number] [place] [address]- 3704 Jun, [facility] [address] [id number] [place] [address]- 9453 Jun, [facility] [address] [id number] [place] [address]- 0012 Jun, [facility] [address] [id number] [place] [address]- 7885 Jun, [facility] [address] [id number] [place] [address]- 3437 Jun, [facility] [address] [id number] [place] [address]- 9722 Jun, [facility] [address] [id number] [place] [address]- 0327 Jun, [facility] [address] [id number] [place] [address]- 2957 Jun, [facility] [address] [id number] [place] [address]- 6191 Jun, [facility] [address] [id number] [place] [address]- 5825 Jun, [facility] [address] [id number] [place] [address]- 3426 Jun, [facility] [address] [id number] [place] [address]- 8346 May, [facility] [address] [id number] [place] [address]- 3036 May, [facility] [address] [id number] [place] [address]- 0509 Apr, [facility] [address] [id number] [place] [address]- 6392 Apr, [facility] [address] [id number] [place] [address]- 4799 Apr, [facility] [address] [id number] [place] [address]- 1412 Apr, [facility] [address] [id number] [place] [address]- 8719 Apr, [facility] [address] [id number] [place] [address]- 6382 Apr, [facility] [address] [id number] [place] [address]- 0828 Apr, [facility] [address] [id number] [place] [address]- 3861 Apr, [facility] [address] [id number] [place] [address]- 4544 Apr, [facility] [address] [id number] [place] [address]- 3160 Apr, [facility] [address] [id number] [place] [address]- 8370 Apr, [facility] [address] [id number] [place] [address]- 7376 Mar, [facility] [address] [id number] [place] [address]- 1378 16 Mar, 2013 [facility] [address] [id number] [place] [address]- 3880 Mar, [facility] [address] [id number] [place] [address]- 5231 Mar, [facility] [address] [id number] [place] [address]- 1900 Feb, [facility] [address] [id number] [place] Feb, [facility] [address] [id number], [place] [address] 3175 Feb, [facility] [address] [id number] [place] [address]- 9709 Feb, [facility] [address] [id number], [place] [address]- 8911 Feb, [facility] [address] [id number] [place] [address]- 1091 Feb, [facility] [address] [id number], [place] [address]- 2784 Feb, [facility] [address] [id number] [place] [address]- 6863 Feb, [facility] [address] [id number], [place] [address]- 5128 Feb, [facility] [address] [id number], [place] [address]- 0667 Feb, [facility] [address] [id number], [place] [address]- 9485 Feb, [facility] [address] [id number], [place] [address]- 1240 Jan, [facility] [address] [id number], [place] [address]- 8806 Jan, [facility] [address] [id number], [place] [address]- 7681 Jan, [facility] [address] [id number], [place] [address]- 2837 Jan, [facility] [address] [id number], [place] [address]- 1291 Jan, [facility] [address] [id number], [place] [address]- 5572 Jan, [facility] [address] [id number], [place] [address]- 2471 Jan, [facility] [address] [id number] [place] [address]- 0643 02 Jan, 2013 [facility] [address] [id number] [place] [address]- 5436 30 Sep, 2012 [facility] [address] [id number] [place] [address] 2546 25 Sep, 2012 [facility] [address] [id number] [place] [address] 2546 18 Sep, 2012 [facility] [address] [id number] [place] [address] 2542 17 Sep, 2012 [facility] [address] [id number] [place] [address]- 8936 17 Dec, 2012 [facility] [address] [id number] [place] [address]- 5831 16 Dec, 2012 [facility] [address] [id number] [place] [address]- 8284 13 Dec, 2012 [facility] [address] [id number] [place] [address]- 9603 11 Dec, 2012 [facility] [address] [id number] [place] [address]- 9528 05 Dec, 2012 [facility] [address] [id number] [place] [address]- 4052 04 Dec, 2012 [facility] [address] [id number] [place] [address]- 2545 30 Nov, 2012 [facility] [address] [id number] [place] [address] 2548 29 Nov, 2012 [facility] [address] [id number] [place] [address] 2547 22 Nov, 2012 [facility] [address] [id number] [place] [address]- 2541 16 Nov, 2012 [facility] [address] [id number] [place] [address]- 4418 Nov, [facility] [address] [id number] [place] [address]- 1114 Nov, [facility] [address] [id number] [place] [address]- 9609 Nov, [facility] [address] [id number] [place] [address]- 2141 Oct, [facility] [address] [id number] [place] [address]- 4161 Oct, [facility] [address] [id number] [place] [address]- 7672 Oct, [facility] [address] [id number] [place] [address]- 5419 Oct, [facility] [address] [id number] [place] [address]- 9818 Oct, [facility] [address] [id number] [place] [address]- 5336 Oct, [facility] [address] [id number] [place] [address]- 9225 Sep, [facility] [address] [id number] [place] [address]- 8876 Sep, [facility] [address] [id number] [place] [address]- 6304 Sep, [facility] [address] [id number], [place] [address]- 5425 14 Sep, 2012 [facility] [address] [id number] [place] [address]- 9353 13 Sep, 2012 [facility] [address] [id number] [place] [address]- 8013 10 Sep, 2012 [facility] [address] [id number] [place] [address]- 8568 07 Sep, 2012 [facility] [address] [id number] [place] [address]- 1744 Sep, [facility] [address] [id number] [place] [address]- 8212 Sep, [facility] [address] [id number] [place] [address]- 9054 August, [facility] [address] [id number] [place] [address]- 2997 August, [facility] [address] [id number] [place] [address]- 0866 August, [facility] [address] [id number] [place] [address]- 5528 August, [facility] [address] [id number] [place] [address]- 3508 August, [facility] [address] [id number] [place] [address]- 7300 August, [facility] [address] [id number] [place] [address]- 9765 August, [facility] [address] [id number] [place] [address]- 6821 August, [facility] [address] [id number] [place] [address]- 1572 Jul, [facility] [address] [id number] [place] [address]- 0176 Jul, [facility] [address] [place] [id number] Jul [facility] [address] [id number] [place] [address]- 9519 Jun, [facility] [address] [id number] [place] [address]- 2187 Jun, [facility] [address] [id number] [place] [address]- 5815 Jun, [facility] [address] [id number] [place] [address]- 2644 Jun, [facility] [address] [id number] [place] [address]- 9110 Jun, [facility] [address] [id number] [place] [address]- 4288 Jun, [facility] [address] [id number] [place] [address]- 5415 May, [facility] [address] [id number] [place] [address]- 0883 May, [facility] [address] [id number] [place] [address]- 6803 May, [facility] [address] [id number] [place] [address]- 1068 May, [facility] [address] [id number] [place] [address]- 1672 May, [facility] [address] [id number] [place] [address]- 8404 Apr, [facility] [address] [id number] [place] [address]- 1543 Apr, [facility] [address] [id number] [place] [address]- 4600 Apr, [facility] [address] [id number] [place] [address]- 7850 Apr, [facility] [address] [id number] [place] [address]- 6736 Apr, [facility] [address] [id number] [place] [address]- 9682 Apr, [facility] [address] [id number] [place] [address]- 2096 Mar, [facility] [address] [id number] [place] [address]- 3093 20 Mar, 2012 [facility] [place] [facility] [address] [id number] [place] [address]- 6993 20 Mar, 2012 [facility] [place] [facility] [address] [id number] [place] [address]- 5046 19 Mar, 2012 [facility] [place] [facility] [address] [id number] [place] [address]- 8666 19 Mar, 2012 [facility] [place] [facility] [address] [id number] [place] 18 Mar, 2012 [facility] [place] [facility] [address] [id number] [place] [address]- 4156 18 Mar, 2012 [facility] [place] [facility] [address] [id number] [place] [address]- 8048 Mar, [facility] [place] [facility] [address] [id number] [place] [address]- 8384 Mar, [facility] [place] [facility] [address] [id number] [place] [address]- 3119 05 Mar, 2012 [facility] [place] [facility] [address] [id number] [place] [address]- 2974 05 Mar, 2012 [facility] [place] [facility] [address] [id number] [place] [address]- 3509 28 Feb, 2012 [facility] [place] [facility] [address] [id number] [place] [address]- 3352 28 Feb, 2012 [facility] [place] [facility] [address] [id number], [place] [address]- 4846 Feb, [facility] [place] [facility] [address] [id number] [place] [address]- 3036 Feb, [facility] [place] [facility] [address] [id number] [place] [address]- 6061 Feb, [facility] [place] [facility] [address] [id number] [place] [address]- 5116 16 Feb, 2012 [facility] [place] [facility] [address] [id number] [place] [address]- 1851 16 Feb, 2012 [facility] [place] [facility] [address] [id number] [place] [address]- 4344 Feb, [facility] [place] [facility] [address] [id number] [place]6 Feb, [facility] [place] [facility] [address] [id number] [place] [address]- 6981 Feb, [facility] [place] [facility] [address] [id number] [place] [address]- 3673 Feb, [facility] [place] [facility] [address] [id number] [place] [address]- 2696 Jan, [facility] [place] [facility] [address] [id number] [place] [address]- 9107 Jan, [facility] [place] [facility] [address] [id number] [place] [address]- 1423 Jan, [facility] [place] [facility] [address] [id number] [place] [address]- 6005 Jan, [facility] [place] [facility] [address] [id number] [place] [address]- 7667 Jan, [facility] [place] [facility] [address] [facility] [id number] [place] [address]- 1355 Jan, [facility] [place] [facility] [address] [id number] [place] [address]- 1602 09 Jan, 2012 [facility] [place] [facility] [address] [id number] [place] [address]- 6964 24 Sep2011 [facility] [place] [facility] [address] [id number] [place] [address]- 7626 17 Sep2011 [facility] [place] [facility] [address] [id number] [place] [address]- 3580 13 Sep2011 [facility] [place] [facility] [address] [id number] [place] [address]- 2454 Dec, [facility] [place] [facility] [address] [id number] [place] [address]- 9993 Nov, [facility] [place] [facility] [address] [id number] [place] [address]- 2635 Nov, [facility] [place] [facility] [address] [id number] [place] [address]- 7130 Nov, [facility] [place] [facility] [address] [id number] [place] [address]- 0676 Nov, [facility] [place] [facility] [address] [id number] [place] [address]- 1669 Nov, [facility] [place] [facility] [address] [id number] [place] [address]- 7364 Nov, [facility] [place] [facility] [address] [id number] [place] [address]- 4844 Nov, [facility] [place] [facility] [address] [id number] [place] [address]- 6206 Nov, [facility] [place] [facility] [address] [id number] [place] [address]- 1945 Nov, [facility] [place] [facility] [address] [id number] [place] [address]- 3934 Nov, [facility] [place] [facility] [address] [id number] [place] [address]- 0755 Nov, [facility] [place] [facility] [address] [id number] [place] [address]- 4091 Nov, [facility] [place] [facility] [address] [id number] [place] [address]- 2515 Nov, [facility] [place] [facility] [address] [id number] [place] [address]- 3358 Oct, [facility] [place] [facility] [address] [id number] [place] [address]- 7623 Oct, [facility] [place] [facility] [address] [id number] [place] [address]- 5555 Oct, [facility] [place] [facility] [address] [id number] [place] [address] Oct, [facility] [place] [facility] [address] [id number] [place] [address] Oct, [facility] [place] [facility] [address] [id number] [place] [address] Oct, [facility] [place] [facility] [address] [id number] [place] [address] Oct, [facility] [place] [facility] [address] [id number] [place] [address] Oct, [facility] [place] [facility] [address] [id number] [place] [address] Oct, [facility] [place] [facility] [address] [id number] [place] [address] Sep, [facility] [place] [facility] [address] [id number] [place] [address] Sep, [facility] [place] [facility] [address] [id number] [place] [address] Sep, [facility] [place] [facility] [address] [id number] [place] [address] Sep, [facility] [place] [facility] [address] [id number] [place] [address] Sep, [facility] [place] [facility] [address] [id number] [place] [address] Sep, [facility] [place] [facility] [address] [id number] [place] [address] Sep, [facility] [place] [facility] [address] [id number] [place] [address] Sep, [facility] [place] [facility] [address] [id number] [place] [address] August, [facility] [place] [facility] [address] [id number] [address] August, [facility] [id number] [address] August, [facility] [id number] [address] August, [facility] [id number] [place] [address] August, [facility] [id number] [address] August, [facility] [id number] [address] August, [facility] [id number] [place] [address] August, [facility] [id number] [place] [address] August, [facility] [id number] [address] August, [facility] [id number] [place] [address] August, [facility] [id number] [place] [address] August, [facility] [address] [id number] [address] Oct, IMMUNIZATIONS No Known Immunizations SOCIAL HISTORY Never Assessed REASON FOR VISIT Prior Authorization Request-Nexium PLAN OF CARE VITAL SIGNS MEDICATIONS Medication Instructions Dosage Frequency Start Date End Date Duration Status Gemfibrozil 600 MG Orally Twice a day 1 tablet 12h Unknown Dexilant 30 MG Orally Once a day 1 capsule 24h 12 Oct, 2017 30 day(s) Active Mirtazapine 30 MG Orally Once a day 1 tablet at bedtime 24h 20 May, 2017 30 day(s) Unknown Ondansetron HCl 4 MG Orally 3 times a day 1 tablet as needed 8h Unknown Montelukast Sodium 10 MG Orally Once a day 1 tablet in the evening 24h Unknown Lotrisone 1-0.05 % Externally Twice a day 1 application to affected area 12h Unknown Benadryl Allergy 25 MG Orally 2 times a day 1 capsule 12h Unknown Sucralfate 1 GM Orally 4 times a day 1 tablet before meals and at bedtime 6h 30 days Unknown Cetirizine HCl 10 mg Orally Once a day 1 tablet 24h 90 Unknown Metformin HCl 1000 MG Orally Twice a day 1 tablet with meals 12h 30 days Unknown Triamcinolone Acetonide 0.025 % Externally Twice a day 1 application to affected area as needed 12h 11 Jul, 2017 Unknown Guaifenesin 400 MG Orally every 4 hrs 1 tablet as needed 4h 20 May, 2017 Unknown Atorvastatin Calcium 40 MG Orally Once a day 1 tablet 24h Unknown Lasix 40 mg Orally Once a day 1 tablet 24h Unknown Cyclobenzaprine HCl 10 MG Orally Three times a day 1 tablet as needed 8h Unknown Potassium Chloride Eugenia ER 10 MEQ Orally Once a day 1 tablet with food 24h Unknown Chlorhexidine Gluconate 4 % Externally daily -avoid face, head, genitals as directed Jul, 7 Oct, 2017 10 days Unknown Lyrica 150 MG Orally Three times a day 1 capsule 8h Active Clindamycin Phosphate 1 % Externally Twice a day 1 application to affected area 12h 14 Aug, 2017 Unknown RESULTS No Results PROCEDURES No Known procedures [...] Surgical History bladder surgery Hospitalization History [facility] for right groin pain 05/2011 Hospitalization History Via [facility] for wound on buttocks 08/2012 Hospitalization [...]
--- OUTSIDE RECORDS SUMMARY | 2018-02-11 13:12 | XMS REPORT ---
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 [address] 50908- 6507 Jun, Unspecified mood [affective] disorder F39 [facility] [id number] [place] [address] 86700- 2236 Jun, [facility] [address], [place] [address]- 0246 Jun, Unspecified mood [affective] disorder F39 [facility] [address], [place] [address]- 2882 Jun, Unspecified mood [affective] disorder [id number] [place] [address] 15295- 0345 Jun, Unspecified mood [affective] disorder [id number] [place] [address] 28404- 8110 Jun, Unspecified mood [affective] disorder [address] [place] [address] 44009- 8416 Jun, [facility] [id number] [place] [address] 83897- 5005 Jun, Type 2 diabetes mellitus with hyperglycemia E11.65 ; Oxygen dependent Z99.81 ; Folliculitis L73.9 ; Dysuria R30.0 ; Encounter for contraceptive management Z30.9 and Dog bite W54.0XXA [facility] [address] [place] [address] 09022- 2844 Jun, Unspecified mood [affective] disorder [address], [place] [address]- 6090 Jun, Type 2 diabetes mellitus with hyperglycemia E11.65 [facility] [address] [place] [address] 06459- 6660 May, Unspecified mood [affective] disorder [id number] [place] [address] 75977- 8799 May, [facility] [id number] [place] [address] 92025- 3587 May, [facility] [id number] [place] [address] 59306- 1662 May, [facility] [address], [place] [address]- 0854 Apr, [facility] [address] [place] [address] 18154- 7722 Apr, Unspecified mood [affective] disorder F39 [facility] [id number] [place] [address] 34172- 0924 Apr, [facility] [id number] [place] [address] 26872- 1232 Apr, [facility] [id number] [place] [address] 14093- 4400 Apr, [facility] [id number] [place] [address] 93213- 7699 Apr, Dysuria R30.0 and Well woman exam (no gynecological exam) Z00.00 [facility] [address] [place] [address] 76798- 2752 Mar, [facility] [address] [place] [address] 75297- 8477 Mar, [facility] [id number] [place] [address] [id number] Mar, Dental examination Z01.20 [facility] [address] [place] [address] 47877- 1895 Mar, Chronic diarrhea K52.9 ; Intractable vomiting with nausea, vomiting of unspecified type R11.2 ; Cellulitis, unspecified cellulitis site L03.90 ; Type 2 diabetes mellitus with diabetic polyneuropathy E11.42 and Postinflammatory hyperpigmentation L81.0 [facility] [address] [place] [address] 50293- 9844 Mar, Unspecified mood [affective] disorder F39 [facility] [id number] [place] [address] 54700- 2638 Mar, Unspecified mood [affective] disorder F39 [facility] [address] [facility] [id number], [place] [address]- 4931 Mar, [facility] [address] [facility] [id number], [place] [address]- 7919 Mar, [facility] [address] [facility] [id number], [place] [address]- 4067 Mar, [facility] [address] [facility] [id number] [place] [address] 30791- 2324 Mar, [facility] [address] [facility] [id number], [place] [address]- 6339 Mar, [facility] [address] [facility] [id number] [place] [address] 01663- 3569 Mar, [facility] [id number], [place] [address]- 5687 Feb, Unspecified mood [affective] disorder F39 [facility] [address] [facility] [id number], [place] [address]- 6844 Feb, [facility] [id number], [place] [address]- 1664 Feb, [facility] [id number], [place] [address]- 7681 Jan, Unspecified mood [affective] disorder F39 [facility] [id number] [id number] [id number] Jan, Encounter for dental examination Z01.20 [facility] [address], [place] [address]- 6525 Jan, [facility] [id number], [place] [address]- 1939 Jan, [facility] [id number], [place] [address]- 8553 Jan, [facility] [address], [place] [address]- 8727 Jan, [facility] [address], [place] [address]- 8545 Jan, [facility] [id number] [place] [address] 59146- 3720 Jan, Abdominal abscess K65.1 and Dental caries K02.9 [facility] [id number] [place] [address] 47143- 6947 Jan, [facility] [id number] [place] [address] 04495- 6262 30 Dec, 2014 Diabetes with neurological manifestations, type II or unspecified type, not stated as uncontrolled 250.60 ; Essential hypertension, benign 401.1 ; Concussion 850.9 and Skin texture changes 782.8 [facility] [id number] [place] [address] 02148- 6301 Dec, [facility] [id number] [place] [address] 51526- 4650 24 Dec, 2014 [facility] [id number] [place] [address] 39543- 2433 Dec, [facility] [id number] [place] [address] 07035- 9802 Dec, [facility] [address] [place] [address] 23358- 3349 17 Dec, 2014 Affective disorder 296.90 [facility] [address] [place] [address] 30595- 3295 14 Dec, 2014 [facility] [address] [place] [address] 08420- 3118 10 Dec, 2014 Affective disorder 296.90 [facility] [address] [place] [address] 46258- 9461 04 Dec, 2014 [facility] [address], [place] [address]- 8588 04 Dec, 2014 [facility] [address], [place] [address] 2546 Dec, [facility] [address], [place] [address] 2546 Dec, [facility] [address], [place] [address] 2546 Nov, Affective disorder 296.90 [facility] [address] [place] [address] 24856 2546 Nov, [facility] [address], [place] [address] 2546 Nov, Affective disorder 296.90 [facility] [address] [place] [address] 65751 2546 Nov, Diarrhea 787.91 [facility] [address], [place] [address] 2546 Nov, [facility] [address], [place] [address] 2546 Nov, Diarrhea 787.91 [facility] [address] [place] [address] 44012 2546 Nov, Diarrhea 787.91 and Hyperlipidemia 272.4 [facility] [address], [place] [address] 2546 Nov, Diarrhea 787.91 [facility] [address], [place] [address] 2546 Nov, Affective disorder 296.90 [facility] [id number], [place] [address] 2546 Nov, Affective disorder 296.90 [facility] [address], [place] [address] 2546 Nov, Affective disorder 296.90 [facility] [id number], [place] [address] 2546 Nov, [facility] [address], [place] [address]- 0065 Nov, [facility] [address], [place] [address]- 0276 Nov, [facility] [address], [place] [address]- 2291 Nov, Episodic mood disorder 296.90 [facility] [address], [place] [address]- 9306 Nov, [facility] [address], [place] [address]- 9437 Nov, [facility] [address] [place] [address] 50064- 9389 Nov, [facility] [id number], [place] [address]- 6071 Nov, [facility] [address] [place] [address] 08032- 2607 Nov, [facility] [address], [place] [address]- 0870 Nov, Lymphedema 457.1 ; Hyperlipidemia 272.4 ; Essential hypertension, benign 401.1 and Numbness of toes 782.0 [facility] [address], [place] [address]- 3670 Nov, Episodic mood disorder 296.90 [facility] [address], [place] [address]- 1687 Oct, [facility] [address], [place] [address]- 8220 Oct, [facility] [address], [place] [address]- 8972 Oct, [facility] [address], [place] [address]- 0958 Oct, [facility] [address], [place] [address]- 0787 14 Oct, 2014 [facility] [address] [facility] [id number] [address]- 3709 Oct, [facility] [address] [facility] [id number], [place] [address]- 0602 Oct, 2014 [facility] [id number], [place] [address]- 7638 Oct, [facility] [address] [facility] [id number], [place]592- 3460 Oct, Episodic mood disorder 296.90 [facility] [id number], [place] [address]- 9974 30 Sep, 2014 [facility] [id number], [place] [address]- 7451 Sep, [facility] [address], [place] [address]- 6992 Sep, [facility] [id number], [place] [address]- 9868 Sep, [facility] [address], [place] [address]- 3849 Sep, [facility] [id number], [place] [address]- 3888 Sep, Episodic mood disorder 296.90 [facility] [address], [place] [address]- 6819 Sep, Unspecified episodic mood disorder 296.90 [facility] [address] [facility] [id number], [place] [address]- 3030 Sep, [facility] [address] [facility] [id number], [place] [address]- 6591 Sep, [facility] [address] [facility] [id number]- 8810 16 Sep, 2014 Episodic mood disorder 296.90 [facility] [id number], [place] [address]- 6405 Sep, [facility] [address], [place] [address]- 3379 Sep, [facility] [address], [place] [address]- 8879 Sep, [facility] [address], [place] [address]- 5984 Sep, Hematemesis 578.0 and Vomiting 787.03 [facility] [address], [place] [address]- 3087 Sep, Episodic mood disorder 296.90 [facility] [id number] [place] [address] 53678- 6587 Sep, [facility] [address], [place] [address]- 6590 Sep, [facility] [id number] [place] [address] 80299- 8231 Sep, Diabetes mellitus without mention of complication, type II or unspecified type, not stated as uncontrolled 250.00 and Other chronic pain 338.29 [facility] [address], [place] [address]- 1776 Sep, Episodic mood disorder 296.90 [facility] [address], [place] [address]- 7745 Sep, [facility] [address], [place] [address]- 8482 Sep, Episodic mood disorder 296.90 [facility] [address], [place] [address]- 1105 Sep, [facility] [address], [place] [address]- 1838 August, [facility] [address], [place] [address]- 2288 August, [facility] [id number] [place] [address] August, Episodic mood disorder 296.90 [facility] [id number] [place] [address] August, [facility] [address] [facility] [id number] [place] [address] August, Unspecified episodic mood disorder 296.90 [facility] [address] [facility] [id number] [place] [address] August, Vomiting 787.03 [facility] [address] [facility] [id number] [place] [address] August, [facility] [id number] [place] [address] August, [facility] [id number] [place] [address] August, [facility] [id number] [place] [address] August, [facility] [id number] [place] [address] August, [facility] [id number] [place] [address] Jul, [facility] [id number] [place] [address] Jul, [facility] [id number] [place] [address] Jul, [facility] [id number] [address] Jun, [facility] [id number] [address] [address] Jun, [facility] [id number] [place] [address] Jun, [facility] [facility] [id number] [place] [address] 30 Jun, 2014 [facility] [place] [facility] [address] [id number] [place] [address] 9236 30 Jun, 2014 [facility] [place] [facility] [address] [id number] [place] [address]- 1896 30 Jun, 2014 [facility] [place] [facility] [address] [id number] [place] [address]- 8808 30 Jun, 2014 [facility] [place] [facility] [address] [id number] [place] [address]- 2445 30 Jun, 2014 [facility] [place] [facility] [address] [id number] [place] [address]- 6492 Jun, [facility] [place] [facility] [address] [id number] [place] [address]- 3717 Jun, [facility] [place] [facility] [address] [id number] [place] [address]- 7774 Jun, [facility] [place] [facility] [address] [id number] [place] [address]- 6167 Jun, [facility] [place] [facility] [address] [id number] [place] [address]- 5485 Jun, [facility] [place] [facility] [address] [id number] [place] [address]- 7531 Jun, [facility] [place] [facility] [address] [id number] [place] [address]- 5064 Jun, [facility] [place] [facility] [address] [id number] [place] [address]- 7861 Jun, [facility] [place] [facility] [address] [id number] [place] [address]- 1822 Jun, [facility] [place] [facility] [address] [id number] [place] [address]- 0254 Jun, [facility] [place] [facility] [address] [id number] [place] [address]- 8589 Jun, [facility] [place] [facility] [address] [id number] [place] [address]- 5491 21 Jun, 2014 [facility] [place] [facility] [address] [id number] [place] [address]- 5412 21 Jun, 2014 [facility] [place] [facility] [address] [id number] [place] [address]- 0235 20 Jun, 2014 [facility] [place] [facility] [address] [id number] [place] [address]- 4599 20 Jun, 2014 [facility] [place] [facility] [address] [id number] [place] [address]- 3751 20 Jun, 2014 [facility] [place] [facility] [address] [id number] [place] [address]- 0105 20 Jun, 2014 [facility] [place] [facility] [address] [id number] [place] [address]- 9914 19 Jun, 2014 [facility] [place] [facility] [address] [id number] [place] [address]- 9574 19 Jun, 2014 [facility] [place] [facility] [address] [id number] [place] [address]- 7139 18 Jun, 2014 [facility] [place] [facility] [address] [id number] [place] [address]- 5928 18 Jun, 2014 [facility] [place] [facility] [address] [id number] [place] [address]- 6553 17 Jun, 2014 [facility] [place] [facility] [address] [id number] [place] [address]- 7543 17 Jun, 2014 [facility] [place] [facility] [address] [id number] [place] [address]- 4616 16 Jun, 2014 [facility] [place] [facility] [address] [id number] [place] [address]- 3589 16 Jun, 2014 [facility] [place] [facility] [address] [id number] [place] [address]- 2251 16 Jun, 2014 [facility] [place] [facility] [address] [id number] [place] [address]- 1805 Jun, [facility] [place] [facility] [address] [id number] [place] [address]- 1085 16 Jun, 2014 [facility] [place] [facility] [address] [id number] [place] [address]- 0380 16 Jun, 2014 [facility] [place] [facility] [address] [id number] [place] [address]- 4709 Jun, [facility] [place] [facility] [address] [id number] [place] [address]- 8261 Jun, [facility] [place] [facility] [address] [id number] [place] [address]- 0585 Jun, [facility] [place] [facility] [address] [id number] [place] [address]- 6007 Jun, [facility] [place] [facility] [address] [id number] [place] [address]- 2525 Jun, [facility] [place] [facility] [address] [id number] [place] [address]- 8651 Jun, [facility] [place] [facility] [address] [id number] [place] [address]- 9872 Jun, [facility] [place] [facility] [address] [id number] [place] [address]- 8762 Jun, [facility] [place] [facility] [address] [id number] [place] [address]- 1435 Jun, [facility] [place] [facility] [address] [id number] [place] [address]- 3535 Jun, [facility] [place] [facility] [address] [id number] [place] [address]- 5941 Jun, [facility] [place] [facility] [address] [id number] [place] [address]- 2489 Jun, 2014 [facility] [place] [facility] [address] [id number] [place] [address]- 4263 Jun, 2014 [facility] [place] [facility] [address] [id number] [place] [address]- 1314 Jun, 2014 [facility] [place] [facility] [address] [id number] [place] [address]- 4445 Jun, [facility] [place] [facility] [address] [id number] [place] [address]- 8036 Jun, 2014 [facility] [place] [facility] [address] [id number] [place] [address]- 0769 Jun, 2014 [facility] [place] [facility] [address] [facility] [id number] [place] [address]- 5118 Jun, [facility] [place] [facility] [address] [id number] [place] [address]- 2354 Jun, [facility] [place] [facility] [address] [facility] [id number] [place] [address]- 5812 Jun, [facility] [place] [facility] [address] [facility] [id number] [place] [address]- 6518 May, 2014 [facility] [place] [facility] [address] [facility] [id number] [place] [address]- 6813 May, 2014 [facility] [place] [facility] [address] [facility] [id number] [place] [address]- 3363 May, 2014 [facility] [place] [facility] [address] [facility] [id number] [place] [address]- 4469 May, 2014 [facility] [place] [facility] [address] [facility] [id number], [place] [address]- 8455 May, 2014 [facility] [place] [facility] [address] [facility] [id number] [place] [address]- 9330 May, 2014 [facility] [place] [facility] [address] [facility] [id number] [place] [address]- 8463 May, 2014 [facility] [place] [facility] [address] [facility] [id number] [place] [address]- 0241 May, 2014 [facility] [place] [facility] [address] [id number] [address] 1899 20 May, 2014 [facility] [place] [facility] [address] [id number] [place] [address]- 2776 20 May, 2014 [facility] [place] [facility] [address] [facility] [id number] [place] [address]- 6026 18 May, 2014 [facility] [place] [facility] [address] [facility] [id number] [place] [address]- 2576 18 May, 2014 [facility] [place] [facility] [address] [facility] [id number] [place] [address]- 5536 13 May, 2014 [facility] [place] [facility] [address] [facility] [id number] [place] [address]- 8962 13 May, 2014 [facility] [place] [facility] [id number] [place] [address]- 4678 11 May, 2014 [facility] [place] [facility] [address] [id number] [place] [address]- 4666 11 May, 2014 [facility] [place] [facility] [address] [facility] [id number] [place] [address]- 8594 11 May, 2014 [facility] [place] [facility] [id number] [place] [address]- 0583 May, 2014 [facility] [place] [facility] [address] [id number] [address]- 5390 09 May, 2014 [facility] [place] [facility] [address] [facility] [id number] [place] [address]- 2547 May, 2014 [facility] [place] [facility] [address] [facility] [id number], [place] [address]- 2541 05 May, 2014 [facility] [place] [facility] [address] [facility] [id number] [place] [address]- 1619 May, 2014 [facility] [place] [facility] [address] [facility] [id number], [place] [address]- 2542 05 May, 2014 [facility] [place] [facility] [address] [facility] [id number], [place] [address]- 2147 May, [facility] [place] [facility] [address] [id number] [place] [address]- 2300 May, [facility] [place] [facility] [address] [id number] [place] [address] May, [facility] [place] [facility] [address] [id number] [place] [address]- 1004 May, [facility] [place] [facility] [address] [id number] [place] [address]- 8137 Apr, [facility] [place] [facility] [address] [id number] [place] [address]- 9055 Apr, [facility] [place] [facility] [address] [id number] [place] [address]- 6865 Apr, [facility] [place] [facility] [address] [id number] [place] [address]- 1759 Apr, [facility] [place] [facility] [address] [id number], [place] [address]- 6463 Apr, [facility] [place] [facility] [address] [id number], [place] [address]- 5100 Apr, [facility] [place] [facility] [address] [id number], [place] [address]- 8956 Apr, [facility] [place] [facility] [address] [id number], [place] [address]- 2078 Apr, [facility] [place] [facility] [address] [id number], [place] [address]- 5423 Apr, [facility] [place] [facility] [address] [id number], [place] [address]- 8847 Apr, [facility] [place] [facility] [address] [id number], [place] [address]- 5670 Apr, [facility] [place] [facility] [address] [id number], [place] [address]- 7885 Apr, [facility] [place] [facility] [address] [id number] [place] [address]- 6219 Apr, [facility] [address] [id number] [place] [address]- 1763 Apr, [facility] [address] [id number] [place] [address]- 8522 Apr, [facility] [address] [id number] [place] [address]- 1816 Apr, [facility] [address] [id number] [place] [address]- 6486 Apr, [facility] [address] [id number] [place] [address]- 5426 Apr, [facility] [address] [id number] [place] [address]- 7817 Apr, [facility] [address] [id number] [place] [address]- 3332 Apr, [facility] [address] [id number] [place] [address]- 9238 Mar, [facility] [address] [id number] [place] [address]- 5252 Mar, [facility] [address] [id number] [place] [address]- 4332 Mar, [facility] [address] [id number] [place] [address]- 3585 Mar, [facility] [address] [id number] [place] [address]- 1265 Mar, [facility] [place] [facility] [address] [id number] [place] [address]- 6837 Mar, [facility] [address] [id number] [place] [address]- 3346 Mar, [facility] [place] [facility] [address] [id number] [id number] 2128 Mar, [facility] [place] [facility] [address] [id number] [place] [address]- 4165 15 Mar, 2014 [facility] [place] [facility] [address] [id number] [place] [address]- 8620 Mar, [facility] [place] [facility] [address] [id number] [place] [address]- 5184 Mar, [facility] [place] [facility] [address] [id number] [place] [address]- 7586 Mar, [facility] [place] [facility] [address] [id number] [place] [address]- 3634 Mar, [facility] [place] [facility] [address] [id number] [place] [address]- 0822 Mar, [facility] [place] [facility] [address] [id number] [place] [address]- 3595 Mar, [facility] [place] [facility] [address] [id number] [place] [address]- 1859 Mar, [facility] [place] [facility] [address] [id number] [place] [address]- 2048 Feb, [facility] [place] [facility] [address] [id number] [place] [address]- 5584 Feb, [facility] [place] [facility] [address] [id number] [place] [address]- 7834 Feb, [facility] [place] [facility] [address] [id number] [place] [address]- 1139 Feb, [facility] [place] [facility] [address] [id number] [place] [address]- 8678 Feb, [facility] [place] [facility] [address] [id number] [place] [address]- 2811 Feb, [facility] [place] [facility] [address] [id number] [place] [address]- 7239 Feb, [facility] [place] [facility] [address] [id number] [place] [address]- 0300 18 Feb, 2014 [facility] [place] [facility] [address] [id number] [place] [address]- 3283 18 Feb, 2014 [facility] [place] [facility] [address] [id number] [place] [address]- 7054 17 Feb, 2014 [facility] [place] [facility] [address] [id number] [place] [address]- 4987 17 Feb, 2014 [facility] [place] [facility] [address] [id number] [place] [address]- 7287 17 Feb, 2014 [facility] [place] [facility] [address] [id number] [place] [address]- 7800 17 Feb, 2014 [facility] [place] [facility] [address] [id number] [place] [address]- 4646 14 Feb, 2014 [facility] [place] [facility] [address] [id number] [place] [address]- 9216 14 Feb, 2014 [facility] [place] [facility] [address] [id number] [place] [address]- 6814 14 Feb, 2014 [facility] [place] [facility] [address] [id number] [place] [address]- 0335 14 Feb, 2014 [facility] [place] [facility] [address] [id number] [place] [address]- 3851 Feb, [facility] [place] [facility] [address] [id number] [place] [address]- 7072 Feb, [facility] [place] [facility] [address] [id number], [place] [address]- 0100 Feb, [facility] [place] [facility] [address] [id number] [place] [address]- 2932 Feb, [facility] [place] [facility] [address] [id number] [place] [address]- 3149 Jan, [facility] [place] [facility] [address] [id number] [place] [address]- 1294 Jan, [facility] [place] [facility] [address] [id number] [place] [address]- 1232 30 Jan, 2013 [facility] [place] [facility] [address] [id number] [place] [address]- 3992 30 Jan, 2014 [facility] [place] [facility] [address] [id number] [place] [address]- 6085 24 Jan, 2014 [facility] [place] [facility] [address] [id number] [place] [address]- 6636 24 Jan, 2014 [facility] [place] [facility] [address] [id number] [place] [address]- 5295 Jan, [facility] [place] [facility] [address] [id number] [place] [address]- 9126 Jan, [facility] [place] [facility] [address] [id number] [place] [address]- 0431 Jan, [facility] [place] [facility] [address] [id number] [place] [address]- 1583 Jan, [facility] [place] [facility] [address] [id number] [place] [address]- 8310 17 Jan, 2014 [facility] [place] [facility] [address] [id number] [place] [address]- 6002 17 Jan, 2013 [facility] [place] [facility] [address] [id number] [place] [address]- 2100 17 Jan, 2014 [facility] [place] [facility] [address] [id number] [place] [address]- 1274 17 Jan, 2013 [facility] [place] [facility] [address] [id number] [place] [address]- 0302 15 Jan, 2014 [facility] [place] [facility] [address] [id number] [place] [address]- 8745 15 Jan, 2013 [facility] [place] [facility] [address] [id number] [place] [address]- 2490 14 Jan, 2014 [facility] [place] [facility] [address] [id number] [place] [address]- 6129 14 Jan, 2014 [facility] [place] [facility] [address] [id number] [place] [address]- 2471 13 Jan, 2014 [facility] [place] [facility] [address] [id number] [place] [address]- 6157 13 Jan, 2014 [facility] [place] [facility] [address] [id number] [place] [address]- 6539 Jan, [facility] [place] [facility] [address] [id number] [place] [address]- 2826 Jan, [facility] [place] [facility] [address] [id number] [place] [address]- 0300 Jan, [facility] [place] [facility] [address] [id number] [place] [address]- 2122 Jan, [facility] [place] [facility] [address] [id number] [place] [address]- 2009 Jan, [facility] [place] [facility] [address] [id number], [place] [address]- 2624 25 Dec, 2013 [facility] [place] [facility] [address] [id number] [place] [address]- 3655 25 Dec, 2013 [facility] [place] [facility] [address] [id number], [place] [address]- 4223 23 Dec, 2013 [facility] [place] [facility] [address] [id number], [place] [address]- 0670 23 Sep, 2013 [facility] [place] [facility] [address] [id number], [place] [address]- 2545 19 Sep, 2013 [facility] [place] [facility] [address] [id number] [place] [address]- 254 19 Dec, 2013 [facility] [place] [facility] [address] [id number], [place] [address]- 3195 17 Dec, 2013 [facility] [place] [facility] [address] [id number], [place] [address]- 254 17 Dec, 2013 [facility] [place] [facility] [address] [id number] [place] [address]- 9729 09 Sep, 2013 [facility] [place] [facility] [address] [id number] [place] [address] 2546 09 Sep, 2013 [facility] [place] [facility] [address] [id number] [place] [address] 2546 08 Dec, 2013 [facility] [place] [facility] [address] [id number] [place] [address] 2549 08 Sep, 2013 [facility] [place] [facility] [address] [id number] [place] [address] 2544 Sep, 2013 [facility] [place] [facility] [address] [id number] [place] [address]- 3756 04 Dec, 2013 [facility] [place] [facility] [address] [id number] [place] [address]- 0491 Dec, 2013 [facility] [place] [facility] [address] [id number] [place] [address] Dec, 2013 [facility] [place] [facility] [address] [id number] [place] [address] Dec, 2013 [facility] [place] [facility] [address] [id number] [place] [address] Dec, 2013 [facility] [place] [facility] [address] [id number] [place] [address] Nov, [facility] [place] [facility] [address] [id number] [place] [address] Nov, [facility] [place] [facility] [address] [id number] [place] [address] Nov, [facility] [place] [facility] [address] [id number] [place] [address] Nov, [facility] [place] [facility] [address] [id number] [place] [address] Nov, [facility] [place] [facility] [address] [id number] [place] [address] Nov, [facility] [place] [facility] [address] [id number] [place] [address] Nov, [facility] [place] [facility] [address] [id number] [place] [address] 39[address] Nov, [facility] [place] [facility] [address] [id number] [place] [address] Nov, [facility] [place] [facility] [address] [id number] [place] [address] Nov, [facility] [place] [facility] [address] [id number] [place] [address] Nov, [facility] [place] [facility] [address] [id number] [place] [address] Nov, [facility] [place] [facility] [address] [id number] [place] [address] Oct, [facility] [place] [facility] [address] [id number] [place] [address] 9[address] Oct, [facility] [place] [facility] [address] [id number] [place] [address] Oct, [facility] [place] [facility] [address] [id number] [place] [address] 4110 Oct, [facility] [place] [facility] [address] [id number] [place] [address]- 9836 Oct, [facility] [place] [facility] [address] [id number] [place] [address]- [address] Oct, [facility] [place] [facility] [address] [id number] [place] [address] Oct, [facility] [place] [facility] [address] [id number] [place] [address] 3422 Oct, [facility] [place] [facility] [address] [id number] [place] [address]- [address]282 Oct, [facility] [place] [facility] [address] [id number] [place] [address]- [address] 22 Oct, 2013 [facility] [place] [facility] [address] [id number] [place] [address]- [address] 16 Oct, 2013 [facility] [place] [facility] [address] [id number] [place] [address]- [address] 16 Oct, 2013 [facility] [place] [facility] [address] [id number] [place] [address] 14 Oct, 2013 [facility] [place] [facility] [address] [id number] [place] [address] 14 Oct, 2013 [facility] [place] [facility] [address] [id number] [place] [address]- 6652 Oct, [facility] [place] [facility] [address] [id number] [place] [address]204 Oct, [facility] [place] [facility] [address] [id number] [place] [address] Oct, [facility] [place] [facility] [address] [id number] [place] [address] 27 Sep, 2013 [facility] [place] [facility] [address] [id number] [place] [address] 7848 27 Sep, 2013 [facility] [place] [facility] [address] [id number] [place] [address] Sep, [facility] [place] [facility] [address] [id number] [place] [address] 27[address] Sep, [facility] [place] [facility] [address] [id number] [place] [address] 18 Sep, 2013 [facility] [place] [facility] [address] [id number] [place] [address]- [address]178 18 Sep, 2013 [facility] [place] [facility] [address] [id number] [place] [address]487 17 Sep, 2013 [facility] [place] [facility] [address] [id number] [place] [address]- 8630 17 Sep, 2013 [facility] [place] [facility] [address] [id number] [place] [address]61 Sep, [facility] [place] [facility] [address] [id number] [place] [address]- [address] Sep, [facility] [place] [facility] [address] [id number] [place] [address]- [address]84 Sep, [facility] [place] [facility] [address] [id number] [place] [address]- 9846 Sep, [facility] [place] [facility] [address] [id number] [place] [address]- 1305 Sep, [facility] [place] [facility] [address] [id number] [place] [address]- 2027 Sep, [facility] [place] [facility] [address] [id number] [place] [address] 3732 Sep, [facility] [place] [facility] [address] [id number] [place] [address]- 5263 Sep, [facility] [place] [facility] [address] [id number] [place] [address]- 9311 Sep, [facility] [place] [facility] [address] [id number] [place] [address]- 2981 Sep, [facility] [place] [facility] [address] [id number] [place] [address] 8806 Sep, [facility] [place] [facility] [address] [id number] [place] [address]- 0366 Sep, [facility] [place] [facility] [address] [id number] [place] [address]- 4836 Sep, [facility] [place] [facility] [address] [id number] [place] [address]- 2079 Sep, [facility] [place] [facility] [address] [id number] [place] [address] 4633 August, [facility] [place] [facility] [address] [id number] [place] [address] 3087 August, [facility] [place] [facility] [address] [id number] [place] [address]- 6899 August, [facility] [place] [facility] [address] [id number] [place] [address]- 1448 August, [facility] [place] [facility] [address] [id number] [place] [address]- 6046 August, [facility] [place] [facility] [address] [id number] [place] [address]- 9939 August, [facility] [place] [facility] [address] [id number] [place] [address]- 7924 August, [facility] [place] [facility] [address] [id number] [place] [address]- 5719 August, [facility] [place] [facility] [address] [id number] [place] [address]- 4334 August, [facility] [place] [facility] [address] [id number] [place] [address]- 3903 August, [facility] [place] [facility] [address] [id number] [place] [address]- 1805 August, [facility] [place] [facility] [address] [id number] [place] [address]- 9009 Jul, [facility] [place] [facility] [address] [id number] [place] [address]- 8910 Jul, [facility] [place] [facility] [address] [id number] [place] [address]- 1664 Jul, [facility] [place] [facility] [address] [id number] [place] [address]- 0986 Jul, [facility] [place] [facility] [address] [id number] [place] [address]- 6578 Jul, [facility] [place] [facility] [address] [id number] [place] [address]- 8692 Jul, [facility] [place] [facility] [address] [id number] [place] [place] [address] Jul, [facility] [place] [facility] [address] [id number] [place] [address] 66[address] Jul, [facility] [place] [facility] [address] [id number] [place] [address] 0[address] 18 Jul, 2013 [facility] [place] [facility] [address] [id number] [place] [address] 5630 18 Jul, 2013 [facility] [place] [facility] [address] [id number] [place] [address]- 1621 16 Jul, 2013 [facility] [place] [facility] [address] [id number] [place] [address] 2962 Jul, [facility] [place] [facility] [address] [id number] [place] [address] 2447 Jul, [facility] [place] [facility] [address] [id number] [place] [address] 2357 Jul, [facility] [place] [facility] [address] [id number] [place] [address]- 4108 Jul, [facility] [place] [facility] [address] [id number] [place] [address]- 1589 Jul, [facility] [place] [facility] [address] [id number] [place] [address]- 8418 Jul, [facility] [place] [facility] [address] [id number] [place] [address]- 3187 Jul, [facility] [place] [facility] [address] [id number] [place] [address]- 8314 Jul, [facility] [place] [facility] [address] [id number] [place] [address]- 4745 Jul, [facility] [place] [facility] [address] [id number] [place] [address]- 1473 Jul, [facility] [place] [facility] [address] [id number] [place] [address]- 2759 Jul, [facility] [place] [facility] [address] [id number] [place] [address]- 4985 Jul, [facility] [place] [facility] [address] [id number] [place] [address]- 6517 Jun, [facility] [place] [facility] [address] [id number] [place] [address]- 0097 Jun, [facility] [place] [facility] [address] [id number] [place] [address]- 0939 Jun, [facility] [place] [facility] [address] [id number] [place] [address]- 2[address] Jun, [facility] [place] [facility] [address] [id number] [place] [address]- 2460 Jun, [facility] [place] [facility] [address] [id number] [place] [address]- 8659 Jun, [facility] [place] [facility] [address] [id number] [place] [address]- 5567 Jun, [facility] [place] [facility] [address] [id number] [place] [address]- 7626 Jun, [facility] [place] [facility] [address] [id number] [place] [address]- 4240 Jun, [facility] [place] [facility] [address] [id number] [place] [address]- 1287 Jun, [facility] [place] [facility] [address] [id number] [place] [address]- 3853 Jun, [facility] [place] [facility] [address] [id number] [place] [address]- 8847 Jun, [facility] [place] [facility] [address] [id number] [place] [address]- 4372 May, [facility] [place] [facility] [address] [id number] [place] [address]- 8646 May, [facility] [place] [facility] [address] [id number] [place] [address]- 2352 Apr, [facility] [place] [facility] [address] [id number] [place] [address]- 4267 Apr, [facility] [place] [facility] [address] [id number] [place] [address]- 8752 Apr, [facility] [place] [facility] [address] [id number] [place] [address]- 6877 Apr, [facility] [place] [facility] [address] [id number] [place] [address]- 7856 Apr, [facility] [place] [facility] [address] [id number] [place] [address]- 1208 Apr, [facility] [place] [facility] [address] [id number] [place] [address]- 9254 Apr, [facility] [place] [facility] [address] [id number] [place] [address]- 1127 Apr, [facility] [place] [facility] [address] [id number] [place] [address]- 7483 Apr, [facility] [place] [facility] [address] [id number] [place] [address]- 5434 Apr, [facility] [place] [facility] [address] [id number] [place] [address]- 7557 Apr, [facility] [place] [facility] [address] [id number] [place] [address]- 4365 16 Mar, 2013 [facility] [place] [facility] [address] [id number] [place] [address]- 5720 Mar, [facility] [place] [facility] [address] [id number] [place] [address]- 5748 Mar, [facility] [place] [facility] [address] [id number] [place] [address]- 0852 Mar, [facility] [place] [facility] [address] [id number] [place] [address]- 1762 Feb, [facility] [place] [facility] [address] [id number] [place] [address]- 0486 Feb, [facility] [address] [id number] [place] [address]- 4726 Feb, [facility] [place] [facility] [address] [id number] [place] [address]- 3813 Feb, [facility] [address] [id number] [place] [address]- 4981 Feb, [facility] [place] [facility] [address] [id number] [place] [address]- 8895 Feb, [facility] [address] [id number] [place] [address]- 1172 Feb, [facility] [address] [id number] [place] [address]- 5464 Feb, [facility] [place] [facility] [address] [id number] [place] [address]- 8407 Feb, [facility] [address] [id number] [place] [address]- 6917 Feb, [facility] [place] [facility] [address] [id number] [place] [address]- 6802 Feb, [facility] [address] [facility] [id number] [place] [address]- 8357 Jan, [facility] [place] [facility] [address] [id number] [place] [address]- 0298 Jan, [facility] [place] [facility] [address] [id number], [place] [address]- 6960 Jan, [facility] [place] [facility] [address] [id number] [place] [address]- 5178 Jan, [facility] [place] [facility] [address] [facility] [id number] [place] [address]- 5454 Jan, [facility] [place] [facility] [address] [id number] [place] [address]- 8221 Jan, [facility] [place] [facility] [address] [id number] [place] [address]- 8793 03 Jan, 2013 [facility] [place] [facility] [address] [id number] [place] [address]- 1576 02 Jan, 2013 [facility] [place] [facility] [address] [id number] [place] [address]- 2818 30 Dec, 2012 [facility] [place] [facility] [address] [id number] [place] [address]- 7256 25 Dec, 2012 [facility] [place] [facility] [address] [id number] [place] [address]- 6758 18 Dec, 2012 [facility] [place] [facility] [address] [id number] [place] [address]- 2124 17 Dec, 2012 [facility] [place] [facility] [address] [id number] [place] [address]- 1997 17 Dec, 2012 [facility] [place] [facility] [address] [id number] [place] [address]- 4047 16 Dec, 2012 [facility] [place] [facility] [address] [id number] [place] [address]- 2968 13 Dec, 2012 [facility] [place] [facility] [address] [id number], [place] [address]- 2697 11 Dec, 2012 [facility] [place] [facility] [address] [id number] [place] [address]- 3365 05 Dec, 2012 [facility] [place] [facility] [address] [id number], [place] [address]- 2105 04 Dec, 2012 [facility] [place] [facility] [address] [id number] [place] [address]- 1672 30 Nov, 2012 [facility] [place] [facility] [address] [id number] [place] [address]- 0789 Nov, [facility] [place] [facility] [address] [id number], [place] [address]- 0334 Nov, [facility] [place] [facility] [address] [id number], [place] [address]- 7329 16 Nov, 2012 [facility] [place] [facility] [address] [id number] [place] [address]- 1556 14 Nov, 2012 [facility] [place] [facility] [address] [id number] [place] [address]- 9230 Nov, [facility] [place] [facility] [address] [id number] [place] [address]- 9716 05 Nov, 2012 [facility] [place] [facility] [address] [id number] [place] [address]- 8250 29 Oct, 2012 [facility] [place] [facility] [address] [id number] [place] [address]- 5809 Oct, [facility] [place] [facility] [address] [id number] [place] [address]- 8632 Oct, [facility] [place] [facility] [address] [id number] [place] [address]- 3009 Oct, [facility] [place] [facility] [address] [id number] [place] [address]- 8686 15 Oct, 2012 [facility] [place] [facility] [address] [id number] [place] [address]- 3969 Oct, [facility] [place] [facility] [address] [id number] [place] [address]- 8002 Sep, [facility] [place] [facility] [address] [id number] [place] [address]- 9403 28 Sep, 2012 [facility] [place] [facility] [address] [id number] [place] [address]- 8357 27 Sep, 2012 [facility] [place] [facility] [address] [id number] [place] [address]- 4555 14 Sep, 2012 [facility] [place] [facility] [address] [id number] [place] [address]- 8667 13 Sep, 2012 [facility] [place] [facility] [address] [id number] [place] [address]- 0164 10 Sep, 2012 [facility] [place] [facility] [address] [id number] [place] [address]- 4336 Sep, [facility] [address] [id number] [place] [address]- 6841 Sep, [facility] [address] [id number] [place] [address]- 7136 Sep, [facility] [address] [id number] [place] [address]- 9965 August, [facility] [address] [id number] [place] [address]- 8645 August, [facility] [address] [id number] [place] [address]- 6529 August, [facility] [address] [id number] [place] [address]- 6382 August, [facility] [address] [id number] [place] [address]- 0539 August, [facility] [address] [id number] [place] [address]- 8207 August, [facility] [address] [id number] [place] [address]- 9266 August, [facility] [address] [id number] [place] [address]- 3315 August, [facility] [address] [id number] [place] [address]- 8556 Jul, [facility] [address] [id number] [place] [address]- 1475 Jul, [facility] [address] [place] [id number] Jul [facility] [address] [id number] [place] [address]- 1826 Jun, [facility] [address] [id number] [place] [address]- 6366 Jun, [facility] [address] [id number] [place] [address]- 1080 Jun, [facility] [place] [facility] [address] [id number] [place] [address]- 0240 Jun, [facility] [place] [facility] [address] [id number] [place] [address]- 2627 Jun, [facility] [place] [facility] [address] [id number] [place] [address]- 5055 Jun, [facility] [place] [facility] [address] [id number] [place] [address]- 2378 May, [facility] [place] [facility] [address] [id number] [place] [address]- 3775 May, [facility] [place] [facility] [address] [id number] [place] [address]- 4015 May, [facility] [place] [facility] [address] [id number] [place] [address]- 7347 May, [facility] [place] [facility] [address] [id number] [place] [address]- 6250 May, [facility] [place] [facility] [address] [id number] [place] [address]- 6208 Apr, [facility] [place] [facility] [address] [id number] [place] [address]- 6414 Apr, [facility] [place] [facility] [address] [id number] [place] [address]- 5539 Apr, [facility] [place] [facility] [address] [id number] [place] [address]- 7778 Apr, [facility] [place] [facility] [address] [id number] [place] [address]- 3150 Apr, [facility] [place] [facility] [address] [id number] [place] [address]- 8055 Apr, [facility] [place] [facility] [address] [id number], [place] [address]- 9790 26 Mar, 2012 [facility] [place] [facility] [address] [id number] [place] [address]- 6566 20 Mar, 2012 [facility] [place] [facility] [address] [id number] [place] [address]- 8896 Mar, [facility] [place] [facility] [address] [facility] [id number] [place] [address]- 5046 Mar, [facility] [place] [facility] [address] [id number] [place] [address]- 0756 19 Mar, 2012 [facility] [place] [facility] [address] [id number] [place] [address]- 5174 18 Mar, 2012 [facility] [place] [facility] [address] [id number] [place] [address]- 9106 18 Mar, 2012 [facility] [id number] [place] [address]- 6466 Mar, [facility] [place] [facility] [address] [id number] [place] [address]- 4320 Mar, [facility] [place] [facility] [id number] [place] [address]- 3296 05 Mar, 2012 [facility] [place] [facility] [address] [id number] [place] [address]- 7209 05 Mar, 2012 [facility] [place] [facility] [address] [id number] [place] [address]- 8245 Feb, [facility] [place] [facility] [address] [id number] [place] [address]- 6499 Feb, [facility] [place] [facility] [address] [id number] [place] [address]- 1459 Feb, [facility] [place] [facility] [address] [facility] [id number] [place] [address]- 0542 Feb, [facility] [place] [facility] [address] [id number] [place] [address]- 8515 Feb, [facility] [place] [facility] [address] [id number] [place] [address] 2540 16 Feb, 2012 [facility] [place] [facility] [address] [id number] [place] [address]- 7867 16 Feb, 2012 [facility] [place] [facility] [address] [id number] [place] [address]- 2546 Feb, [facility] [place] [facility] [address] [id number] [place] [address] 2546 Feb, [facility] [place] [facility] [address] [id number] [place] [address]- 5621 Feb, [facility] [place] [facility] [address] [id number] [place] [address]- 9564 Feb, [facility] [place] [facility] [address] [id number] [place] [address]- 7998 Jan, [facility] [place] [facility] [address] [id number] [place] Jan, [facility] [place] [facility] [address] [id number] [place] [address]- 8304 Jan, [facility] [place] [facility] [address] [id number] [place] [address]- 1812 Jan, [facility] [place] [facility] [address] [facility] [id number] [place] [address]- 2277 Jan, [facility] [place] [facility] [address] [id number] [place] 6736 Jan, [facility] [place] [facility] [address] [id number] [place] [address]- 3423 09 Jan, 2012 [facility] [place] [facility] [address] [id number] [place] [address]- 4496 24 Dec, 2011 [facility] [place] [facility] [address] [id number] [place] [address]- 2546 17 Sep2011 [facility] [place] [facility] [address] [id number] [place] [address]- 8811 Dec, [facility] [place] [facility] [address] [id number] [place] [address]- 7577 Dec, [facility] [place] [facility] [address] [id number] [place] [address]- 7685 Nov, [facility] [place] [facility] [address] [id number] [place] [address]- 2512 Nov, [facility] [place] [facility] [address] [id number] [place] [address]- 7757 Nov, [facility] [place] [facility] [address] [id number] [place] [address]- 6792 15 Nov, 2011 [facility] [place] [facility] [address] [id number] [place] [address]- 2457 Nov, [facility] [place] [facility] [address] [id number] [place] [address]- 5097 Nov, [facility] [place] [facility] [address] [id number] [place] [address]- 0580 Nov, [facility] [place] [facility] [address] [id number] [place] [address]- 2475 Nov, [facility] [place] [facility] [address] [id number] [place] [address]- 0224 Nov, [facility] [place] [facility] [address] [id number] [place] [address]- 7470 Nov, [facility] [place] [facility] [address] [id number] [place] [address]- 6994 Nov, [facility] [place] [facility] [address] [id number] [place] [address]- 0907 Nov, [facility] [place] [facility] [address] [id number] [place] [address]- 3178 Nov, [facility] [place] [facility] [address] [id number] [place] [address]- 0252 Oct, [facility] [place] [facility] [address] [id number] [place] [address]- 9307 Oct, 2011 [facility] [place] [facility] [address] [id number] [place] [address]- 2856 Oct, 2011 [facility] [place] [facility] [address] [id number] [place] [address]- 1736 Oct, 2011 [facility] [place] [facility] [address] [id number] [place] [address]- 9866 Oct, 2011 [facility] [place] [facility] [address] [id number] [place] [address] 2546 Oct, [facility] [place] [facility] [address] [id number] [place] [address]- 8199 Oct, [facility] [place] [facility] [address] [id number] [place] [address]- 6654 Oct, [facility] [place] [facility] [address] [id number] [place] [address]- 0609 Oct, [facility] [place] [facility] [address] [id number] [place] [address]- 8851 Sep, [facility] [place] [facility] [address] [id number] [place] [address]- 6505 Sep, [facility] [place] [facility] [address] [id number] [place] [address]- 8247 Sep, [facility] [place] [facility] [address] [id number] [place] [address]- 8197 Sep, [facility] [place] [facility] [address] [id number] [place] [address]- 254 Sep, [facility] [place] [facility] [address] [id number] [place] [address]- 8041 Sep, [facility] [place] [facility] [address] [id number] [place] [address]- 5793 Sep, [facility] [place] [facility] [address] [id number] [place] [address] Sep, [facility] [id number] [address] August, [facility] [id number] [address] August, [facility] [id number], [place] [address] August, [facility] [id number], [place] [address] August, [facility] [id number] [address] August, [facility] [id number] [address] August, [facility] [id number] [address] August, [facility] [id number] [address] August, [facility] [id number], [place] [address] August, [facility] [id number], [place] [address] August, [facility] [id number], [place] [address] August, [facility] [id number], [place] [address] August, [facility] [id number], [place] [address] Oct, IMMUNIZATIONS No Known Immunizations SOCIAL HISTORY Never Assessed REASON FOR VISIT sore on stomach--tcuppettRn, Sore on abdomen has opened back up and is not healing. PLAN OF CARE Activity Details Follow Up 2 - 3 Days if not better Reason:abscess VITAL SIGNS Height 63 in 2017-10-21 Weight 399.8 lbs 2017-10-21 Temperature 97.5 degrees Fahrenheit 2017-10-21 Heart Rate 96 bpm 2017-10-21 Respiratory Rate 24 2017-10-21 BMI 70.81 kg/m2 2017-10-21 Blood pressure systolic 142 mmHg 2017-10-21 Blood pressure diastolic 90 mmHg 2017-10-21 MEDICATIONS Medication Instructions Dosage Frequency Start Date End Date Duration Status [facility] Ultra Test - TEST FOUR TIMES DAILY 25 Active Lasix 40 mg Orally Once a day 1 tablet 24h Active Ondansetron HCl 4 MG Orally 3 times a day 1 tablet as needed 8h Not-Taking Zantac 150 MG Orally Once a day 1 tablet at bedtime 24h Active Zofran 4 MG Orally every 4 hrs 1 tablet as needed 4h 06 Oct, 2017 03 days Active Atorvastatin Calcium 40 MG Orally Once a day 1 tablet 24h Not- Taking Cyclobenzaprine HCl 10 MG Orally Three times a day 1 tablet as needed 8h Not-Taking Mirtazapine 30 MG Orally Once a day 1 tablet at bedtime 24h 30 Active Clindamycin Phosphate 1 % Externally Twice a day 1 application to affected area 12h August, Not-Taking Metformin HCl 1000 MG Orally Twice a day 1 tablet with meals 12h 30 days Active Lotrisone 1-0.05 % Externally Twice a day 1 application to affected area 12h Not-Taking Gemfibrozil 600 MG Orally Twice a day 1 tablet 12h Not-Taking Keflex 500 mg Orally every 12 hrs 1 capsule 12h Oct, Oct, 07 days Active Potassium Chloride Eugenia ER 10 MEQ Orally Once a day 1 tablet with food 24h Not-Taking Lyrica 150 MG Orally twice a day 2 capsules 12h 30 days Active Triamcinolone Acetonide 0.025 % Externally Twice a day 1 application to affected area as needed 12h 11 Jul, 2017 Not-Taking Montelukast Sodium 10 MG Orally Once a day 1 tablet in the evening 24h Not-Taking Benadryl Allergy 25 MG Orally 2 times a day 1 capsule 12h Not- Taking Cetirizine HCl 10 mg Orally Once a day 1 tablet 24h 90 Not-Taking Sucralfate 1 GM Orally 4 times a day 1 tablet before meals and at bedtime 6h 30 days Active Nexium 40 mg Orally Once a day 1 capsule 24h 13 Jul, 2017 30 day(s) Active Guaifenesin 400 MG Orally every 4 hrs 1 tablet as needed 4h 20 May, 2017 Not-Taking RESULTS No Results PROCEDURES No Known procedures [...] Hospitalization History suicidal ideations-[place] 12/28 Hospitalization History hypoxia--[facility] 02/13/2016 Hospitalization History shortness of breath at june 2016 Hospitalization History Shortness of breath at august 2016 Hospitalization History SOB, chest pain at 12/2016
--- OUTSIDE RECORDS SUMMARY | 2018-02-11 13:14 | XMS REPORT ---
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 disorder F39 [facility] [id number] [place] [address] 35950- 7536 Jun, [facility] [id number] [place] [address] 15405- 4830 Jun, Unspecified mood [affective] disorder F39 [facility] [address], [place] [address]- 7750 Jun, Unspecified mood [affective] disorder F39 [facility] [address], [place] [address]- 4731 Jun, Unspecified mood [affective] disorder F39 [facility] [id number] [place] [address] 73230- 7798 Jun, Unspecified mood [affective] disorder F39 [facility] [id number] [place] [address] 16876- 2302 Jun, [facility] [id number] [place] [address] 73344- 6991 Jun, Type 2 diabetes mellitus with hyperglycemia E11.65 ; Oxygen dependent Z99.81 ; Folliculitis L73.9 ; Dysuria R30.0 ; Encounter for contraceptive management Z30.9 and Dog bite W54.0XXA [facility] [id number] [place] [address] 79862- 6186 Jun, Unspecified mood [affective] disorder F39 [facility] [id number] [place] [address] 22357- 7792 Jun, Type 2 diabetes mellitus with hyperglycemia E11.65 [facility] [id number] [place] [address] 79093- 2708 May, Unspecified mood [affective] disorder F39 [facility] [address], [place] [address]- 1950 May, [facility] [id number] [place] [address] 29525- 0847 May, [facility] [address], [place] [address]- 1632 May, [facility] [id number] [place] [address] 65461- 6010 Apr, [facility] [address], [place] [address]- 4817 Apr, Unspecified mood [affective] disorder F39 [facility] [id number] [place] [address] 46058- 9725 Apr, [facility] [id number] [place] [address] 68765- 6305 Apr, [facility] [id number] [place] [address] 06939- 0374 Apr, [facility] [id number] [place] [address] 45883- 9887 Apr, Dysuria R30.0 and Well woman exam (no gynecological exam) Z00.00 [place] [id number] [place] [address] 69451- 8641 Mar, [facility] [id number] [place] [address] 57261- 1991 Mar, [facility] [id number] [place] [address] [id number] Mar, Dental examination Z01.20 [place] [id number] [place] [address] 78839- 5355 Mar, Chronic diarrhea K52.9 ; Intractable vomiting with nausea, vomiting of unspecified type R11.2 ; Cellulitis, unspecified cellulitis site L03.90 ; Type 2 diabetes mellitus with diabetic polyneuropathy E11.42 and Postinflammatory hyperpigmentation L81.0 [facility] [id number] [place] [address] 54130- 2041 Mar, Unspecified mood [affective] disorder F39 [facility] [id number] [place] [address] 40148- 7740 Mar, Unspecified mood [affective] disorder F39 [facility] [id number] [place] [address] 82813- 7740 Mar, [facility] [id number], [place] [address]- 1114 Mar, [facility] [address] [id number], [place] [address]- 3957 Mar, [facility] [address] [id number], [place] [address]- 6385 Mar, [facility] [id number] [place] [address] 26029- 3156 Mar, [facility] [address] [facility] [id number], [place] [address]- 9204 Mar, [facility] [id number] [place] [address] 49603- 1162 Feb, Unspecified mood [affective] disorder F39 [facility] [id number] [place] [address] 06638- 7179 Feb, [facility] [address] [id number], [place] [address]- 0640 Feb, [facility] [address], [place] [address]- 4193 Jan, Unspecified mood [affective] disorder F39 [facility] [place] [address] [facility] [id number] [id number] Jan, Encounter for dental examination Z01.20 [facility] [address], [place] [address]- 8717 Jan, [facility] [address] [id number], [place] [address]- 8461 Jan, [facility] [address], [place] [address]- 7745 Jan, [facility] [address] [id number], [place] [address]- 5429 Jan, [facility] [address], [place] [address]- 3659 Jan, [facility] [id number] [place] [address] 97809- 2063 08 Jan, 2015 Abdominal abscess K65.1 and Dental caries K02.9 [facility] [id number] [place] [address] 27195- 3454 Jan, [facility] [id number] [place] [address] 63229- 6305 30 Dec, 2014 Diabetes with neurological manifestations, type II or unspecified type, not stated as uncontrolled 250.60 ; Essential hypertension, benign 401.1 ; Concussion 850.9 and Skin texture changes 782.8 [facility] [address] 76858- 0682 Dec, [facility] [id number] [place] [address] 13283- 1326 24 Dec, 2014 [facility] [address] 70578- 6280 Dec, [facility] [id number] [place] [address] 98581- 2126 Dec, [facility] [id number] [place] [address] 12292- 0970 17 Dec, 2014 Affective disorder 296.90 [facility] [id number] [place] [address] 97176- 2512 14 Dec, 2014 [facility] [id number] [place] [address] 93015- 2548 10 Dec, 2014 Affective disorder 296.90 [facility] [id number] [place] [address] 82603- 8153 Dec, [facility] [id number] [place] [address] 60441- 4196 Dec, [facility] [id number] [place] [address] 85005- 3743 Dec, [facility] [address] [place] [address]- 6190 Dec, [facility] [id number] [place] [address] 17832- 2038 Nov, Affective disorder 296.90 [facility] [id number] [place] [address] 38123 2541 Nov, [facility] [id number] [place] [address] 12186- 3640 Nov, Affective disorder 296.90 [facility] [id number] [place] [address] 13118 2546 Nov, Diarrhea 787.91 [facility] [id number] [place] [address] 85778- 2476 Nov, [facility] [id number] [place] [address] 57068- 6565 Nov, Diarrhea 787.91 [facility] [id number] [place] [address] 52227 2541 Nov, Diarrhea 787.91 and Hyperlipidemia 272.4 [facility] [id number] [place] [address] 10963- 6669 Nov, Diarrhea 787.91 [facility] [id number] [place] [address] 78675 2547 Nov, Affective disorder 296.90 [facility] [id number] [place] [address] 34356 2548 Nov, Affective disorder 296.90 [facility] [address], [place] [address]- 0409 Nov, Affective disorder 296.90 [facility] [id number] [place] [address] 61840- 6702 Nov, [facility] [id number] [place] [address] 91780- 5362 Nov, [facility] [id number] [place] [address] 72648- 8220 Nov, [facility] [address], [place] [address]- 7689 Nov, Episodic mood disorder 296.90 [facility] [address], [place] [address]- 2983 Nov, [facility] [id number] [place] [address] 39115- 8548 Nov, [facility] [id number] [place] [address] 70158- 9694 Nov, [facility] [id number] [place] [address] 67584- 3961 Nov, [facility] [address], [place] [address]- 7338 Nov, [facility] [id number] [place] [address] 52438- 8272 Nov, Lymphedema 457.1 ; Hyperlipidemia 272.4 ; Essential hypertension, benign 401.1 and Numbness of toes 782.0 [facility] [address], [place] [address]- 5832 Nov, Episodic mood disorder 296.90 [facility] [address], [place] [address]- 4788 Oct, [facility] [address], [place] [address]- 0903 Oct, [facility] [address], [place] [address]- 4605 Oct, [facility] [address], [place] [address]- 4491 Oct, [facility] [address], [place] [address]- 0151 Oct, [facility] [address], [place] [address]- 4488 Oct, [facility] [address] [facility] [id number] [place] [address]- 1585 Oct, 2014 [facility] [address] [facility] [id number] [place] [address]- 7994 Oct, 2014 [facility] [address] [facility] [id number] [place] [address]- 9139 Oct, Episodic mood disorder 296.90 [facility] [address] [facility] [id number] [place] [address]- 4411 30 Sep, 2014 [facility] [address] [facility] [id number] [place] [address]- 0746 29 Sep, 2014 [facility] [address] [facility] [id number] [place] [address]- 4682 Sep, [facility] [address] [facility] [id number] [place] [address]- 1976 Sep, [facility] [address] [facility] [id number] [place] [address]- 8282 Sep, [facility] [address] [facility] [id number], [place] [address]- 0928 Sep, Episodic mood disorder 296.90 [facility] [address] [facility] [id number] [place] [address]- 4184 Sep, Unspecified episodic mood disorder 296.90 [facility] [address] [facility] [id number], [place] [address]- 4324 18 Sep, 2014 [facility] [address] [facility] [id number], [place] [address]- 8325 18 Sep, 2014 [facility] [address] [facility] [id number] [place] [address]- 7445 16 Sep, 2014 Episodic mood disorder 296.90 [facility] [address] [facility] [id number], [place] [address]- 1730 15 Sep, 2014 [facility] [address] [id number], [place] [address] Sep, [facility] [id number], [place] [address] Sep, [facility] [id number] [place] [address] Sep, Hematemesis 578.0 and Vomiting 787.03 [facility] [id number] [place] [address] Sep, Episodic mood disorder 296.90 [facility] [id number], [place] [address] Sep, [facility] [id number] [place] [address] Sep, [facility] [id number], [place] [address] Sep, Diabetes mellitus without mention of complication, type II or unspecified type, not stated as uncontrolled 250.00 and Other chronic pain 338.29 [facility] [id number], [place] [address] Sep, Episodic mood disorder 296.90 [facility] [id number] [place] [address] Sep, [facility] [id number], [place] [address] Sep, Episodic mood disorder 296.90 [facility] [id number], [place] [address] Sep, [facility] [id number], [place] [address] August, [facility] [id number], [place] [address] August, [facility] [address] [id number], [place] [address] August, Episodic mood disorder 296.90 [facility] [address] [id number] [place] [address] August, [facility] [address] [facility] [id number], [place] [address] August, Unspecified episodic mood disorder 296.90 [facility] [address] [facility] [id number] [place] [address] August, Vomiting 787.03 [facility] [address] [facility] [id number] [place] [address] August, [facility] [address] [facility] [id number] [place] [address] August, [facility] [address] [facility] [id number] [place] [address] August, [facility] [id number] [place] [address] August, [facility] [address] [id number], [place] [address] August, [facility] [id number] [place] [address] Jul[facility] [facility] [address] [id number], [place] [address] Jul, [facility] [address] [id number], [place] [address] Jul, [facility] [address] [id number], [place] [address] Jun, [facility] [address] [facility] [id number] [place] [address] Jun, [facility] [address] [facility] [id number], [place] [address] Jun, [facility] [place] [facility] [address] [facility] [id number], [place] [address] Jun, [facility] [address] [id number], [place] [address] 30 Jun, 2014 [facility] [place] [facility] [address] [id number] [place] [address] 0610 Jun, [facility] [place] [facility] [address] [id number] [place] [address]- 7740 Jun, [facility] [place] [facility] [address] [id number] [place] [address]- 8188 Jun, [facility] [place] [facility] [address] [id number] [place] [address]- 3209 Jun, [facility] [place] [facility] [address] [id number] [place] [address]- 9337 Jun, [facility] [place] [facility] [address] [id number] [place] [address]- 1274 Jun, [facility] [place] [facility] [address] [id number] [place] [address]- 2405 Jun, [facility] [place] [facility] [address] [id number] [place] [address]- 7087 Jun, [facility] [place] [facility] [address] [id number] [place] [address]- 6947 Jun, [facility] [place] [facility] [address] [id number] [place] [address]- 4090 Jun, [facility] [place] [facility] [address] [id number] [place] [address]- 3492 Jun, [facility] [place] [facility] [address] [id number] [place] [address]- 1842 Jun, [facility] [place] [facility] [address] [id number] [place] [address]- 1849 Jun, [facility] [place] [facility] [address] [id number] [place] [address]- 5525 Jun, [facility] [place] [facility] [address] [id number] [place] [address]- 7870 Jun, [facility] [place] [facility] [address] [id number] [place] [address]- 8929 21 Jun, 2014 [facility] [place] [facility] [address] [id number] [place] [address]- 8386 20 Jun, 2014 [facility] [place] [facility] [address] [id number] [place] [address]- 3606 20 Jun, 2014 [facility] [place] [facility] [address] [id number] [place] [address]- 2876 20 Jun, 2014 [facility] [place] [facility] [address] [id number] [place] [address]- 3823 20 Jun, 2014 [facility] [place] [facility] [address] [id number] [place] [address]- 0855 19 Jun, 2014 [facility] [place] [facility] [address] [id number] [place] [address]- 7581 19 Jun, 2014 [facility] [place] [facility] [address] [id number] [place] [address]- 1627 18 Jun, 2014 [facility] [place] [facility] [address] [id number] [place] [address]- 9595 18 Jun, 2014 [facility] [place] [facility] [address] [id number] [place] [address]- 9166 17 Jun, 2014 [facility] [place] [facility] [address] [id number] [place] [address]- 2203 17 Jun, 2014 [facility] [place] [facility] [address] [id number] [place] [address]- 4072 16 Jun, 2014 [facility] [place] [facility] [address] [id number] [place] [address]- 6036 16 Jun, 2014 [facility] [place] [facility] [address] [id number] [place] [address]- 5406 16 Jun, 2014 [facility] [place] [facility] [address] [id number] [place] [address]- 9926 16 Jun, 2014 [facility] [place] [facility] [address] [id number] [place] [address]- 7031 Jun, [facility] [place] [facility] [address] [id number] [place] [address]- 7650 16 Jun, 2014 [facility] [place] [facility] [address] [id number] [place] [address]- 7272 Jun, [facility] [place] [facility] [address] [id number] [place] [address]- 9694 Jun, [facility] [place] [facility] [address] [id number] [place] [address]- 6705 Jun, [facility] [place] [facility] [address] [id number] [place] [address]- 1836 Jun, [facility] [place] [facility] [address] [id number] [place] [address]- 0893 Jun, [facility] [place] [facility] [address] [id number] [place] [address]- 6997 Jun, 2014 [facility] [place] [facility] [address] [id number] [place] [address]- 1914 Jun, [facility] [place] [facility] [address] [id number] [place] [address]- 0476 Jun, [facility] [place] [facility] [address] [id number] [place] [address]- 2465 Jun, [facility] [place] [facility] [address] [id number], [place] [address] Jun, [facility] [place] [facility] [address] [id number], [place] [address]- 9011 Jun, 2014 [facility] [place] [facility] [address] [id number] [place] [address]- 5105 Jun, [facility] [place] [facility] [address] [id number] [place] [address]- 8100 Jun, [facility] [place] [facility] [address] [id number] [place] [address]- 1539 Jun, [facility] [place] [facility] [address] [id number] [place] [address]- 9028 Jun, [facility] [place] [facility] [address] [id number] [place] [address]- 3010 Jun, [facility] [place] [facility] [address] [facility] [id number] [place] [address]- 2748 Jun, [facility] [place] [facility] [address] [facility] [id number] [place] [address]- 0515 Jun, [facility] [place] [facility] [address] [id number] [place] [address]- 2312 Jun, [facility] [place] [facility] [address] [id number] [place] [address]- 0511 Jun, [facility] [place] [facility] [address] [facility] [id number] [place] [address]- 4928 May, [facility] [place] [facility] [address] [facility] [id number] [place] [address]- 1309 May, 2014 [facility] [place] [facility] [address] [facility] [id number] [place] [address]- 1025 May, [facility] [place] [facility] [address] [id number] [place] [address]- 2564 May, [facility] [place] [facility] [address] [facility] [id number] [place] [address]- 1778 May, [facility] [place] [facility] [address] [facility] [id number] [place] [address]- 8166 May, 2014 [facility] [place] [facility] [address] [facility] [id number] [place] [address]- 2543 May, [facility] [place] [facility] [address] [facility] [id number] [place] [address]- 2326 May, 2014 [facility] [place] [facility] [address] [facility] [id number], [place] [address]- 2623 May, 2014 [facility] [place] [facility] [address] [facility] [id number], [place] [address]- 7020 May, 2014 [facility] [place] [facility] [address] [facility] [id number] [place] [address]- 3662 18 May, 2014 [facility] [place] [facility] [address] [facility] [id number] [place] [address]- 5586 18 May, 2014 [facility] [place] [facility] [address] [facility] [id number] [place] [address]- 1396 13 May, 2014 [facility] [place] [facility] [address] [facility] [id number] [place] [address]- 2548 13 May, 2014 [facility] [place] [facility] [address] [facility] [id number] [place] [address]- 2969 11 May, 2014 [facility] [place] [facility] [address] [id number] [place] [address]- 6296 May, 2014 [facility] [place] [facility] [address] [id number] [place] [address]- 6572 May, 2014 [facility] [place] [facility] [address] [facility] [id number] [place] [address]- 0275 May, 2014 [facility] [place] [facility] [address] [facility] [id number] [place] [address]- 7868 May, 2014 [facility] [place] [facility] [address] [facility] [id number] [place] [address]- 9247 May, 2014 [facility] [place] [facility] [address] [id number] [place] [address]- 2546 May, 2014 [facility] [place] [facility] [address] [facility] [id number], [place] [address]- 2549 May, 2014 [facility] [place] [facility] [address] [facility] [id number] [place] [address]- 8235 May, 2014 [facility] [place] [facility] [address] [facility] [id number], [place] [address]- 3559 05 May, 2014 [facility] [place] [facility] [id number] [place] [address]- 2822 May, [facility] [place] [facility] [address] [id number] [place] [address]- 0398 May, [facility] [place] [facility] [address] [id number] [place] [address]- 7757 May, [facility] [place] [facility] [address] [id number] [place] [address]- 2526 Apr, [facility] [place] [facility] [address] [id number] [place] [address]- 3618 Apr, [facility] [place] [facility] [address] [id number] [place] [address]- 1769 Apr, [facility] [place] [facility] [address] [id number] [place] [address]- 3127 Apr, [facility] [place] [facility] [address] [id number] [place] [address]- 2045 Apr, [facility] [place] [facility] [address] [id number] [place] [address]- 1117 Apr, [facility] [place] [facility] [address] [id number] [place] [address]- 0285 Apr, [facility] [place] [facility] [address] [id number] [place] [address]- 1489 Apr, [facility] [place] [facility] [address] [id number], [place] [address]- 5002 Apr, [facility] [place] [facility] [address] [id number], [place] [address]- 9140 Apr, [facility] [place] [facility] [address] [id number] [place] [address]- 8137 Apr, [facility] [place] [facility] [address] [id number], [place] [address]- 9853 Apr, [facility] [place] [facility] [address] [id number] [place] [address]- 4637 Apr, [facility] [place] [facility] [address] [id number] [place] [address]- 0612 Apr, [facility] [address] [id number] [place] [address]- 4479 Apr, [facility] [place] [facility] [address] [id number] [place] [address]- 4513 Apr, [facility] [place] [facility] [address] [id number] [place] [address]- 5538 Apr, [facility] [place] [facility] [address] [id number] [place] [address]- 4186 Apr, [facility] [place] [facility] [address] [id number] [place] [address]- 1276 Apr, [facility] [place] [facility] [address] [id number] [place] [address]- 6046 Apr, [facility] [address] [id number] [place] [address]- 4960 Mar, [facility] [place] [facility] [address] [id number] [place] [address]- 3207 Mar, [facility] [place] [facility] [address] [id number] [place] [address]- 0566 Mar, [facility] [place] [facility] [address] [id number] [place] [address]- 4008 Mar, [facility] [place] [facility] [address] [id number] [place] [address]- 1076 Mar, [facility] [place] [facility] [address] [id number] [place] [address]- 6124 Mar, [facility] [place] [facility] [address] [id number] [place] [address]- 3986 Mar, [facility] [place] [facility] [address] [id number] [place] [address]- 6794 18 Mar, 2014 [facility] [place] [facility] [address] [id number] [place] 9697 15 Mar, 2014 [facility] [place] [facility] [address] [id number] [place] [address]- 5411 15 Mar, 2014 [facility] [place] [facility] [address] [id number] [place] [address]- 6924 Mar, [facility] [place] [facility] [address] [id number] [place] [address]- 2254 Mar, [facility] [place] [facility] [address] [id number] [place] [address]- 6234 Mar, [facility] [place] [facility] [address] [id number] [place] [address]- 6154 Mar, [facility] [place] [facility] [address] [id number] [place] [address]- 6986 Mar, [facility] [place] [facility] [address] [id number] [place] [address]- 3236 Mar, [facility] [place] [facility] [address] [id number] [place] [address]- 9644 Feb, [facility] [place] [facility] [address] [id number] [place] [address]- 6734 Feb, [facility] [place] [facility] [address] [id number] [place] [address]- 9391 Feb, [facility] [place] [facility] [address] [id number] [place] [address]- 6826 Feb, [facility] [place] [facility] [address] [id number] [place] [address]- 6427 Feb, [facility] [place] [facility] [address] [id number] [place] [address]- 4848 Feb, [facility] [place] [facility] [address] [id number] [place] [address]- 6424 Feb, [facility] [place] [facility] [address] [id number] [place] [address]- 8086 18 Feb, 2014 [facility] [place] [facility] [address] [id number], [place] [address]- 2213 18 Feb, 2014 [facility] [place] [facility] [address] [id number] [place] [address]- 7921 17 Feb, 2014 [facility] [place] [facility] [address] [id number] [place] [address]- 5996 17 Feb, 2014 [facility] [place] [facility] [address] [id number] [place] [address]- 5013 17 Feb, 2014 [facility] [place] [facility] [address] [id number] [place] [address]- 9153 17 Feb, 2014 [facility] [place] [facility] [address] [id number] [place] [address]- 6231 Feb, [facility] [place] [facility] [address] [id number] [place] [address]- 1884 Feb, [facility] [place] [facility] [address] [id number] [place] [address]- 1304 Feb, [facility] [place] [facility] [address] [id number] [place] [address]- 0633 Feb, [facility] [place] [facility] [address] [id number] [place] [address]- 9883 Feb, [facility] [place] [facility] [address] [id number] [place] [address]- 6889 Feb, [facility] [place] [facility] [address] [id number], [place] [address]- 3541 Feb, [facility] [place] [facility] [address] [id number], [place] [address]- 7844 Feb, [facility] [place] [facility] [address] [id number] [place] [address]- 0297 Jan, [facility] [place] [facility] [address] [id number] [place] [address]- 6276 Jan, [facility] [place] [facility] [address] [id number] [place] [address]- 4701 Jan, [facility] [place] [facility] [address] [id number] [place] [address]- 3844 30 Jan, 2013 [facility] [place] [facility] [address] [id number] [place] [address]- 4389 24 Jan, 2014 [facility] [place] [facility] [address] [id number] [place] [address]- 1693 24 Jan, 2014 [facility] [place] [facility] [address] [id number] [place] [address]- 8023 Jan, [facility] [place] [facility] [address] [id number] [place] [address]- 4250 21 Jan, 2014 [facility] [place] [facility] [address] [id number] [place] [address]- 6141 20 Jan, 2014 [facility] [place] [facility] [address] [id number] [place] [address]- 4795 20 Jan, 2014 [facility] [place] [facility] [address] [id number] [place] [address]- 1942 17 Jan, 2014 [facility] [place] [facility] [address] [id number] [place] [address]- 0522 17 Jan, 2014 [facility] [place] [facility] [address] [id number] [place] [address]- 0539 17 Jan, 2014 [facility] [place] [facility] [address] [id number] [place] [address]- 1337 17 Jan, 2014 [facility] [place] [facility] [address] [id number] [place] [address]- 7412 15 Jan, 2014 [facility] [place] [facility] [address] [id number] [place] [address]- 2623 15 Jan, 2014 [facility] [place] [facility] [address] [id number] [place] [address]- 4932 14 Jan, 2014 [facility] [place] [facility] [address] [id number] [place] [address]- 9273 14 Jan, 2013 [facility] [place] [facility] [address] [id number] [place] [address]- 4440 Jan, [facility] [place] [facility] [address] [id number] [place] [address]- 8885 Jan, [facility] [place] [facility] [address] [id number] [place] [address]- 3740 Jan, [facility] [place] [facility] [address] [id number] [place] [address]- 1712 Jan, [facility] [place] [facility] [address] [id number] [place] [address]- 8633 Jan, [facility] [place] [facility] [address] [id number] [place] [address]- 6111 Jan, [facility] [place] [facility] [address] [id number] [place] [address]- 1687 Jan, [facility] [place] [facility] [address] [id number] [place] [address]- 3276 25 Dec, 2013 [facility] [place] [facility] [address] [id number], [place] [address]- 1195 25 Dec, 2013 [facility] [place] [facility] [address] [id number] [place] [address]- 7018 23 Dec, 2013 [facility] [place] [facility] [address] [id number], [place] [address]- 7046 23 Dec, 2013 [facility] [place] [facility] [address] [id number], [place] [address]- 6384 19 Dec, 2013 [facility] [place] [facility] [address] [id number], [place] [address]- 0962 19 Dec, 2013 [facility] [place] [facility] [address] [id number] [place] [address]- 8611 17 Dec, 2013 [facility] [place] [facility] [address] [id number] [place] [address]- 6852 17 Dec, 2013 [facility] [place] [facility] [address] [id number], [place] [address]- 0532 09 Dec, 2013 [facility] [place] [facility] [address] [id number], [place] [address]- 8977 09 Dec, 2013 [facility] [place] [facility] [address] [id number] [place] [address]- 3458 08 Dec, 2013 [facility] [place] [facility] [address] [id number] [place] [address]- 6558 Dec, 2013 [facility] [place] [facility] [address] [id number] [place] [address]- 1526 Dec, 2013 [facility] [place] [facility] [address] [id number] [place] [address]- 2586 Dec, 2013 [facility] [place] [facility] [address] [id number] [place] [address]- 9668 Dec, 2013 [facility] [place] [facility] [address] [id number] [place] [address]- 8967 Dec, 2013 [facility] [place] [facility] [address] [id number] [place] [address]- 2930 Dec, 2013 [facility] [place] [facility] [address] [id number] [place] [address]- 4751 Dec, 2013 [facility] [place] [facility] [address] [id number] [place] [address]- 8568 Nov, [facility] [place] [facility] [address] [id number] [place] [address] Nov, [facility] [place] [facility] [address] [id number] [place] [address] Nov, [facility] [place] [facility] [address] [id number] [place] [address] Nov, [facility] [place] [facility] [address] [id number] [place] [address] Nov, [facility] [place] [facility] [address] [id number] [place] [address] Nov, [facility] [place] [facility] [address] [id number] [place] [address] Nov, [facility] [place] [facility] [address] [id number] [place] [address] Nov, [facility] [place] [facility] [address] [id number] [place] [address] Nov, [facility] [place] [facility] [address] [id number] [place] [address] Nov, [facility] [place] [facility] [address] [id number] [place] [address] Nov, [facility] [place] [facility] [address] [id number] [place] [address] Nov, [facility] [place] [facility] [address] [id number] [place] [address] Oct, [facility] [place] [facility] [address] [id number] [place] [address] Oct, [facility] [place] [facility] [address] [id number] [place] [address] Oct, [facility] [place] [facility] [address] [id number] [place] [address] Oct, [facility] [place] [facility] [address] [id number] [place] [address] Oct, [facility] [place] [facility] [address] [id number] [place] [address] Oct, [facility] [place] [facility] [address] [id number] [place] [address] Oct, [facility] [place] [facility] [address] [id number] [place] [address] Oct, [facility] [place] [facility] [address] [id number] [place] [address] Oct, [facility] [place] [facility] [address] [id number] [place] [address] Oct, [facility] [place] [facility] [address] [id number] [place] [address] 16 Oct, 2013 [facility] [place] [facility] [address] [id number] [place] [address]- 7070 16 Oct, 2013 [facility] [place] [facility] [address] [id number] [place] [address]- [address] 14 Oct, 2013 [facility] [place] [facility] [address] [id number] [place] [address] 14 Oct, 2013 [facility] [place] [facility] [address] [id number] [place] [address]- [address] 13 Oct, 2013 [facility] [place] [facility] [address] [id number] [place] [address]- [address] 13 Oct, 2013 [facility] [place] [facility] [address] [id number] [place] [address] Oct, [facility] [place] [facility] [address] [id number] [place] [address]- [address] 27 Sep, 2013 [facility] [place] [facility] [address] [id number] [place] [address] 27 Sep, 2013 [facility] [place] [facility] [address] [id number] [place] [address] 20 Sep, 2013 [facility] [place] [facility] [address] [id number] [place] [address] 68[address] 20 Sep, 2013 [facility] [place] [facility] [address] [id number] [place] [address]- 3527 18 Sep, 2013 [facility] [place] [facility] [address] [id number] [place] [address]- [address] 18 Sep, 2013 [facility] [place] [facility] [address] [id number] [place] [address]- 1731 17 Sep, 2013 [facility] [place] [facility] [address] [id number] [place] [address]- [address] 17 Sep, 2013 [facility] [place] [facility] [address] [id number] [place] [address]- 1783 11 Sep, 2013 [facility] [place] [facility] [address] [id number] [place] [address]- [address] 11 Sep, 2013 [facility] [place] [facility] [address] [id number] [place] [address] 45[address] Sep, [facility] [place] [facility] [address] [id number] [place] [address]- 9469 Sep, [facility] [place] [facility] [address] [id number] [place] [address]- [address] Sep, [facility] [place] [facility] [address] [id number] [place] [address] Sep, [facility] [place] [facility] [address] [id number] [place] [address] Sep, [facility] [place] [facility] [address] [id number] [place] [address]- 47[address] Sep, [facility] [place] [facility] [address] [id number] [place] [address] Sep, [facility] [place] [facility] [address] [id number] [place] [address] 88[address] Sep, [facility] [place] [facility] [address] [id number] [place] [address]- [address] Sep, [facility] [place] [facility] [address] [id number] [place] [address]- 4969 Sep, [facility] [place] [facility] [address] [id number] [place] [address]- 7925 Sep, [facility] [place] [facility] [address] [id number] [place] [address]- 0682 Sep, [facility] [place] [facility] [address] [id number] [place] [address]- 6[address] August, [facility] [place] [facility] [address] [id number] [place] [address]- [address]108 August, [facility] [place] [facility] [address] [id number] [place] [address]- [address]270 August, [facility] [place] [facility] [address] [id number] [place] [address]- 6[address] August, [facility] [place] [facility] [address] [id number] [place] [address]- [address] August, [facility] [place] [facility] [address] [id number] [place] [address] August, [facility] [place] [facility] [address] [id number] [place] [address]- 94[address] August, [facility] [place] [facility] [address] [id number] [place] [address]- [address] August, [facility] [place] [facility] [address] [id number] [place] [address]- 8691 August, [facility] [place] [facility] [address] [id number] [place] [address] August, [facility] [place] [facility] [address] [id number] [place] [address]- 68[address] August, [facility] [place] [facility] [address] [id number] [place] [address]- [address] Jul, [facility] [place] [facility] [address] [id number] [place] [address]- 7158 Jul, [facility] [place] [facility] [address] [id number] [place] [address]- 79[address] Jul, [facility] [place] [facility] [address] [id number] [place] [address]- 49[address] Jul, [facility] [place] [facility] [address] [id number] [place] [address]- 12[address] Jul, [facility] [place] [facility] [address] [id number] [place] [address]- 6031 Jul, [facility] [place] [facility] [address] [id number] [place] [address]- 0376 Jul, [facility] [place] [facility] [address] [id number] [place] [address]- 8323 Jul, [facility] [place] [facility] [address] [id number] [place] [address]- 3699 Jul, [facility] [place] [facility] [address] [id number] [place] [address]- [address]103 18 Jul, 2013 [facility] [place] [facility] [address] [id number] [place] [address]- [address]206 16 Jul, 2013 [facility] [place] [facility] [address] [id number] [place] [address]- [address] Jul, [facility] [place] [facility] [address] [id number] [place] [address]- 3833 Jul, [facility] [place] [facility] [address] [id number] [place] [address]- 1399 Jul, [facility] [place] [facility] [address] [id number] [place] [address] Jul, [facility] [place] [facility] [address] [id number] [place] [address] 2847 Jul, [facility] [place] [facility] [address] [id number] [place] [address] Jul, [facility] [place] [facility] [address] [id number] [place] [address] 8675 Jul, [facility] [place] [facility] [address] [id number] [place] [address] 0880 Jul, [facility] [place] [facility] [address] [id number] [place] [address] Jul, [facility] [place] [facility] [address] [id number] [place] [address] 6570 Jul, [facility] [place] [facility] [address] [id number] [place] [address] 0679 Jul, [facility] [place] [facility] [address] [id number] [place] [address] 7988 Jul, [facility] [place] [facility] [address] [id number] [place] [address]- 8920 Jun, [facility] [address] [id number] [place] [address]- [address]345 Jun, [facility] [place] [facility] [address] [id number] [place] [address] 1292 Jun, [facility] [address] [id number] [place] [address]- 4[address] Jun, [facility] [place] [facility] [address] [id number] [place] [address] 4213 Jun, [facility] [address] [id number] [place] [address]- 7899 Jun, [facility] [address] [id number] [place] [address]- 6040 Jun, [facility] [place] [facility] [address] [id number] [place] [address]- 4223 Jun, [facility] [address] [id number] [place] [address]- 1462 Jun, [facility] [place] [facility] [address] [id number] [place] [address]- 3044 Jun, [facility] [address] [id number] [place] [address] 5[address] Jun, [facility] [place] [facility] [address] [id number] [place] [address]- 7381 Jun, [facility] [place] [facility] [address] [id number] [place] [address] 0300 May, [facility] [place] [facility] [address] [id number] [place] [address]- 3471 May, [facility] [place] [facility] [address] [id number] [place] [address] 1986 Apr, [facility] [place] [facility] [address] [id number] [place] [address]- 0638 Apr, [facility] [place] [facility] [address] [id number] [place] [address]- 6429 Apr, [facility] [place] [facility] [address] [id number] [place] [address]- 6258 Apr, [facility] [place] [facility] [address] [id number] [place] [address]- 7218 Apr, [facility] [place] [facility] [address] [id number] [place] [address]- 9690 Apr, [facility] [place] [facility] [address] [id number] [place] [address]- 8360 Apr, [facility] [place] [facility] [address] [id number] [place] [address]- 6144 Apr, [facility] [place] [facility] [address] [id number] [place] [address]- 6899 Apr, [facility] [place] [facility] [address] [id number] [place] [address]- 3445 Apr, [facility] [place] [facility] [address] [id number] [place] [address]- 1305 Apr, [facility] [place] [facility] [address] [id number] [place] [address]- 2813 Mar, [facility] [place] [facility] [address] [id number] [place] [address]- 4356 16 Mar, 2013 [facility] [place] [facility] [address] [id number] [place] [address]- 3079 Mar, [facility] [place] [facility] [address] [id number] [place] [address]- 0223 Mar, [facility] [place] [facility] [address] [id number] [place] [address]- 4584 Feb, [facility] [place] [facility] [address] [id number] [place] [address] Feb, [facility] [place] [facility] [address] [id number], [place] [address] 57[address] Feb, [facility] [place] [facility] [address] [id number] [place] [address]- 1791 Feb, [facility] [place] [facility] [address] [id number], [place] [address]- 0993 Feb, [facility] [place] [facility] [address] [id number] [place] [address]- 5318 Feb, [facility] [place] [facility] [address] [id number], [place] [address] 69[address] Feb, [facility] [place] [facility] [address] [id number] [place] [address]- 3396 Feb, [facility] [place] [facility] [address] [id number], [place] [address]- 5[address] Feb, [facility] [place] [facility] [address] [id number], [place] [address]- 1013 Feb, [facility] [place] [facility] [address] [id number], [place] [address]- 9234 Feb, [facility] [place] [facility] [address] [id number], [place] [address]- 8470 Jan, [facility] [place] [facility] [address] [id number], [place] [address]- 1068 Jan, [facility] [place] [facility] [address] [id number], [place] [address]- 5639 Jan, [facility] [place] [facility] [address] [id number], [place] [address]- 5[address] Jan, [facility] [place] [facility] [address] [id number], [place] [address]- 8278 Jan, [facility] [place] [facility] [address] [id number], [place] [address]- 59[address] Jan, [facility] [place] [facility] [address] [id number], [place] [address]- 9854 Jan, [facility] [place] [facility] [address] [id number] [place] [address]- 5285 02 Jan, 2013 [facility] [place] [facility] [address] [id number] [place] [address]- 8986 30 Sep, 2012 [facility] [place] [facility] [address] [id number] [place] [address] 2546 25 Sep, 2012 [facility] [place] [facility] [address] [id number] [place] [address] 2546 18 Sep, 2012 [facility] [place] [facility] [address] [id number] [place] [address] 2548 17 Sep, 2012 [facility] [place] [facility] [address] [id number] [place] [address]- 7246 17 Dec, 2012 [facility] [place] [facility] [address] [id number] [place] [address]- 1552 16 Dec, 2012 [facility] [place] [facility] [address] [id number] [place] [address]- 1778 13 Dec, 2012 [facility] [place] [facility] [address] [id number] [place] [address]- 1302 11 Dec, 2012 [facility] [place] [facility] [address] [id number] [place] [address]- 9986 05 Dec, 2012 [facility] [place] [facility] [address] [id number] [place] [address]- 1722 04 Dec, 2012 [facility] [place] [facility] [address] [id number] [place] [address]- 2542 30 Nov, 2012 [facility] [place] [facility] [address] [id number] [place] [address] 2547 29 Nov, 2012 [facility] [place] [facility] [address] [id number] [place] [address] 2543 22 Nov, 2012 [facility] [place] [facility] [address] [id number] [place] [address]- 2543 16 Nov, 2012 [facility] [place] [facility] [address] [id number] [place] [address]- 7217 Nov, [facility] [place] [facility] [address] [id number] [place] [address]- 0058 Nov, [facility] [place] [facility] [address] [id number] [place] [address]- 6003 Nov, [facility] [place] [facility] [address] [id number] [place] [address]- 7374 Oct, [facility] [place] [facility] [address] [id number] [place] [address]- 1460 Oct, [facility] [place] [facility] [address] [id number] [place] [address]- 3502 Oct, [facility] [place] [facility] [address] [id number] [place] [address]- 4688 Oct, [facility] [place] [facility] [address] [id number] [place] [address]- 3833 Oct, [facility] [place] [facility] [address] [id number] [place] [address]- 7488 Oct, [facility] [place] [facility] [address] [id number] [place] [address]- 6951 Sep, [facility] [place] [facility] [address] [id number] [place] [address]- 9453 Sep, [facility] [place] [facility] [address] [id number] [place] [address]- 1002 Sep, [facility] [place] [facility] [address] [id number], [place] [address]- 7099 14 Sep, 2012 [facility] [place] [facility] [address] [id number] [place] [address]- 9561 13 Sep, 2012 [facility] [place] [facility] [address] [id number] [place] [address]- 5090 10 Sep, 2012 [facility] [place] [facility] [address] [id number] [place] [address]- 3394 07 Sep, 2012 [facility] [place] [facility] [address] [id number] [place] [address]- 7482 Sep, [facility] [address] [id number] [place] [address]- 8252 Sep, [facility] [address] [id number] [place] [address]- 2435 August, [facility] [address] [id number] [place] [address]- 8790 August, [facility] [address] [id number] [place] [address]- 0391 August, [facility] [address] [id number] [place] [address]- 6377 August, [facility] [address] [id number] [place] [address]- 9553 August, [facility] [address] [id number] [place] [address]- 2033 August, [facility] [address] [id number] [place] [address]- 8751 August, [facility] [address] [id number] [place] [address]- 5091 August, [facility] [address] [id number] [place] [address]- 0623 Jul, [facility] [address] [id number] [place] [address]- 4606 Jul, [facility] [address] [place] [id number] Jul [facility] [address] [id number] [place] [address]- 4687 Jun, [facility] [address] [id number] [place] [address]- 6951 Jun, [facility] [address] [id number] [place] [address]- 0956 Jun, [facility] [address] [id number] [place] [address]- 1409 Jun, [facility] [address] [id number] [place] [address]- 6588 Jun, [facility] [place] [facility] [address] [id number] [place] [address]- 8321 Jun, [facility] [address] [id number] [place] [address]- 0969 May, [facility] [address] [id number] [place] [address]- 4854 May, [facility] [address] [id number] [place] [address]- 9956 May, [facility] [address] [id number] [place] [address]- 0136 May, [facility] [address] [id number] [place] [address]- 0009 May, [facility] [address] [id number] [place] [address]- 4966 Apr, [facility] [address] [id number] [place] [address]- 1639 Apr, [facility] [address] [id number] [place] [address]- 8984 Apr, [facility] [address] [id number] [place] [address]- 0086 Apr, [facility] [address] [id number] [place] [address]- 1262 Apr, [facility] [place] [facility] [address] [id number] [place] [address]- 9480 Apr, [facility] [place] [facility] [address] [id number] [place] [address]- 4755 Mar, [facility] [address] [id number] [place] [address]- 9993 20 Mar, 2012 [facility] [place] [facility] [address] [id number] [place] [address]- 4824 20 Mar, 2012 [facility] [place] [facility] [address] [id number] [place] [address]- 6806 19 Mar, 2012 [facility] [place] [facility] [address] [id number] [place] [address]- 3726 19 Mar, 2012 [facility] [place] [facility] [address] [id number] [place] 4078 18 Mar, 2012 [facility] [place] [facility] [address] [id number] [place] [address]- 1420 18 Mar, 2012 [facility] [place] [facility] [address] [id number] [place] [address]- 3829 Mar, [facility] [place] [facility] [address] [id number] [place] [address]- 9343 Mar, [facility] [place] [facility] [address] [id number] [place] [address]- 9573 05 Mar, 2012 [facility] [place] [facility] [address] [id number] [place] [address]- 4054 05 Mar, 2012 [facility] [place] [facility] [address] [id number] [place] [address]- 2444 28 Feb, 2012 [facility] [place] [facility] [address] [id number] [place] [address]- 6912 28 Feb, 2012 [facility] [place] [facility] [address] [id number], [place] [address]- 4724 Feb, [facility] [place] [facility] [address] [id number] [place] [address]- 0596 Feb, [facility] [place] [facility] [address] [id number] [place] [address]- 5551 Feb, [facility] [place] [facility] [address] [id number] [place] [address]- 1986 16 Feb, 2012 [facility] [place] [facility] [address] [id number] [place] [address]- 4055 16 Feb, 2012 [facility] [place] [facility] [address] [id number] [place] [address]- 6931 Feb, [facility] [place] [facility] [address] [id number] [place] [address]25 Feb, [facility] [place] [facility] [address] [id number] [place] [address]- 3074 Feb, [facility] [place] [facility] [address] [id number] [place] [address]- 3288 Feb, [facility] [place] [facility] [address] [id number] [place] [address]- 8923 Jan, [facility] [place] [facility] [address] [id number] [place] [address]- 5450 Jan, [facility] [place] [facility] [address] [id number] [place] [address]- 4711 Jan, [facility] [place] [facility] [address] [id number] [place] [address]- 2424 Jan, [facility] [place] [facility] [address] [id number] [place] [address]- 1287 Jan, [facility] [place] [facility] [address] [facility] [id number] [place] [address]- 8950 Jan, [facility] [place] [facility] [address] [id number] [place] [address]- 7179 09 Jan, 2012 [facility] [place] [facility] [address] [id number] [place] [address]- 3571 24 Sep2011 [facility] [place] [facility] [address] [id number] [place] [address]- 2910 17 Sep2011 [facility] [place] [facility] [address] [id number] [place] [address]- 4385 13 Sep2011 [facility] [place] [facility] [address] [id number] [place] [address]- 7687 Dec, [facility] [place] [facility] [address] [id number] [place] [address]- 5931 Nov, [facility] [place] [facility] [address] [id number] [place] [address]- 7397 Nov, [facility] [place] [facility] [address] [id number] [place] [address]- 2330 Nov, [facility] [place] [facility] [address] [id number] [place] [address]- 2230 Nov, [facility] [place] [facility] [address] [id number] [place] [address]- 5996 Nov, [facility] [place] [facility] [address] [id number] [place] [address]- 8150 Nov, [facility] [place] [facility] [address] [id number] [place] [address]- 6060 Nov, [facility] [place] [facility] [address] [id number] [place] [address]- 5410 Nov, [facility] [place] [facility] [address] [id number] [place] [address]- 3634 Nov, [facility] [place] [facility] [address] [id number] [place] [address]- 4840 Nov, [facility] [place] [facility] [address] [id number] [place] [address]- 5948 Nov, [facility] [place] [facility] [address] [id number] [place] [address]- 4411 Nov, [facility] [place] [facility] [address] [id number] [place] [address]- 3629 Nov, [facility] [place] [facility] [address] [id number] [place] [address]- 3563 Oct, [facility] [place] [facility] [address] [id number] [place] [address]- 3208 Oct, [facility] [place] [facility] [address] [id number] [place] [address]- 0520 Oct, [facility] [place] [facility] [address] [id number] [place] [address]- 2220 Oct, [facility] [place] [facility] [address] [id number] [place] [address]- 7670 Oct, [facility] [place] [facility] [address] [id number] [place] [address]- 2689 Oct, [facility] [place] [facility] [address] [id number] [place] [address]- 6879 Oct, [facility] [place] [facility] [address] [id number] [place] [address]- 7483 Oct, [facility] [place] [facility] [address] [id number] [place] [address]- 6361 Oct, [facility] [place] [facility] [address] [id number] [place] [address]- 0948 Sep, [facility] [place] [facility] [address] [id number] [place] [address]- 0167 Sep, [facility] [place] [facility] [address] [id number] [place] [address]- 0937 Sep, [facility] [place] [facility] [address] [id number] [place] [address]- 7364 Sep, [facility] [place] [facility] [address] [id number] [place] [address]- 4141 Sep, [facility] [place] [facility] [address] [id number] [place] [address]- 5465 Sep, [facility] [place] [facility] [address] [id number] [place] [address]- 5242 Sep, [facility] [place] [facility] [address] [id number] [place] [address]- 3623 Sep, [facility] [place] [facility] [address] [id number] [place] [address]- 9799 August, [facility] [place] [facility] [address] [id number][place] [address]209 August, [facility] [address] [facility] [id number][place] 4944 August, [facility] [address] [facility] [id number][place] 7566 August, [facility] [address] [facility] [id number] 6041 August, [facility] [address] [facility] [id number][place] 2322 August, [facility] [id number] [address]28 August, [facility] [id number], [place] [address]- 7780 August, [facility] [id number], [place] [address]- 2571 August, [facility] [id number], [place] [address]- 3601 August, [facility] [address] [id number], [place] [address]- 1007 August, [facility] [address] [id number], [place] [address]- 2665 August, [facility] [address] [id number], [place] [address]- 80[address] Oct, IMMUNIZATIONS No Known Immunizations SOCIAL HISTORY Never Assessed REASON FOR VISIT Refill Requests PLAN OF CARE VITAL SIGNS MEDICATIONS Medication Instructions Dosage Frequency Start Date End Date Duration Status Glucometer glucometer as directed Oct, Active Test strips as directed Oct, Active Potassium Chloride Eugenia ER 10 MEQ Orally Once a day 1 tablet with food 24h 90 days Active Rosuvastatin Calcium 20 mg Orally Once a day 1 tablet 24h Oct, 90 days Active Montelukast Sodium 10 mg Orally Once a day 1 tablet in the evening 24h 90 days Active Cetirizine HCl 10 mg Orally Once a day 1 tablet 24h 90 days Active Lasix 40 mg Orally Once a day 1 tablet 24h 90 days Active RESULTS No Results [...] Surgical History bladder surgery Hospitalization History [facility] for right groin pain 05/2011 Hospitalization History [facility] for wound on buttocks 08/2012 Hospitalization History [facility], hypoxia secondary to pneumonia 12/02-12/09 Hospitalization History Pneumonia, elevated CO2 on Bipap was in ICU 08/2013 Hospitalization History Hypoxia, Exacerbation COPD, Chest pain 09/05/15 Hospitalization History suicidal ideations-[facility] 12/28 Hospitalization History hypoxia--[facility] 02/13/2016 Hospitalization History shortness of breath at june 2016 Hospitalization History Shortness of breath at august 2016 Hospitalization History SOB, chest pain at 12/2016
--- OUTSIDE RECORDS SUMMARY | 2018-02-11 13:15 | XMS REPORT ---
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 Jun, [facility] [id number] [place] [address] 80234- 2366 Jun, Unspecified mood [affective] disorder F39 [facility] [address], [place] [address]- 8416 Jun, Unspecified mood [affective] disorder F39 [facility] [address], [place] [address]- 4231 Jun, Unspecified mood [affective] disorder F39 [facility] [id number] [place] [address] 11728- 9219 Jun, Unspecified mood [affective] disorder F39 [facility] [id number] [place] [address] 74135- 0802 Jun, [facility] [id number] [place] [address] 94982- 8307 Jun, Type 2 diabetes mellitus with hyperglycemia E11.65 ; Oxygen dependent Z99.81 ; Folliculitis L73.9 ; Dysuria R30.0 ; Encounter for contraceptive management Z30.9 and Dog bite W54.0XXA [facility] [id number] [place] [address] 36073- 5897 Jun, Unspecified mood [affective] disorder F39 [facility] [id number] [place] [address] 91099- 8822 Jun, Type 2 diabetes mellitus with hyperglycemia E11.65 [facility] [id number] [place] [address] 51341- 8614 May, Unspecified mood [affective] disorder F39 [facility] [address], [place] [address]- 4420 May, [facility] [id number] [place] [address] 66123- 7751 May, [facility] [address], [place] [address]- 0242 May, [facility] [id number] [place] [address] 20951- 7696 Apr, [facility] [address], [place] [address]- 9482 Apr, Unspecified mood [affective] disorder F39 [facility] [id number] [place] [address] 32526- 9850 Apr, [facility] [id number] [place] [address] 20905- 5446 Apr, [facility] [id number] [place] [address] 14526- 7364 Apr, [facility] [id number] [place] [address] 71805- 5880 Apr, Dysuria R30.0 and Well woman exam (no gynecological exam) Z00.00 [place] [id number] [place] [address] 13604- 6095 Mar, [facility] [id number] [place] [address] 68092- 0025 Mar, [facility] [address] [place] [address] [id number] Mar, Dental examination Z01.20 [place] [id number] [place] [address] 50908- 2944 Mar, Chronic diarrhea K52.9 ; Intractable vomiting with nausea, vomiting of unspecified type R11.2 ; Cellulitis, unspecified cellulitis site L03.90 ; Type 2 diabetes mellitus with diabetic polyneuropathy E11.42 and Postinflammatory hyperpigmentation L81.0 [facility] [id number] [place] [address] 42210- 5756 Mar, Unspecified mood [affective] disorder F39 [facility] [id number] [place] [address] 38649- 6836 Mar, Unspecified mood [affective] disorder F39 [facility] [id number] [place] [address] 46841- 4018 Mar, [facility] [id number] [address]- 3570 Mar, [facility] [id number] [address]- 0682 Mar, [facility] [id number] [address]- 6422 Mar, [facility] [id number] [place] [address] 72783- 9007 Mar, [facility] [address] [facility] [id number], [place] [address]- 7848 Mar, [facility] [id number] [place] [address] 56456- 3248 Feb, Unspecified mood [affective] disorder F39 [facility] [id number] [place] [address] 18090- 4119 Feb, [facility] [id number] [address]- 3193 Feb, [facility] [address], [place] [address]- 8640 Jan, Unspecified mood [affective] disorder F39 [facility] [place] [address] [facility] [id number] Jan, Encounter for dental examination Z01.20 [facility] [address], [place] [address]- 8849 Jan, [facility] [id number] [address]- 7124 Jan, [facility] [address], [place] [address]- 2660 Jan, [facility] [id number] [address]- 9896 Jan, [facility] [address], [place] [address]- 6154 Jan, [facility] [id number] [place] [address] 24978- 5269 08 Jan, 2015 Abdominal abscess K65.1 and Dental caries K02.9 [facility] [id number] [place] [address] 44930- 5669 Jan, [facility] [id number] [place] [address] 34698- 8531 30 Dec, 2014 Diabetes with neurological manifestations, type II or unspecified type, not stated as uncontrolled 250.60 ; Essential hypertension, benign 401.1 ; Concussion 850.9 and Skin texture changes 782.8 [facility] [address] 35405- 6983 Dec, [facility] [id number] [place] [address] 06098- 9663 24 Dec, 2014 [facility] [address] 50205- 0910 Dec, [facility] [id number] [place] [address] 94807- 7519 Dec, [facility] [id number] [place] [address] 70085- 8786 17 Dec, 2014 Affective disorder 296.90 [facility] [id number] [place] [address] 71114- 4940 14 Dec, 2014 [facility] [id number] [place] [address] 38771- 2549 10 Dec, 2014 Affective disorder 296.90 [facility] [id number] [place] [address] 95306- 3197 Dec, [facility] [id number] [place] [address] 10161- 6897 Dec, [facility] [id number] [place] [address] 44212- 6925 Dec, [facility] [address] [place] [address]- 4709 Dec, [facility] [id number] [place] [address] 27550- 0529 Nov, Affective disorder 296.90 [facility] [id number] [place] [address] 76806 2547 Nov, [facility] [id number] [place] [address] 71423- 5156 Nov, Affective disorder 296.90 [facility] [id number] [place] [address] 39582 2546 Nov, Diarrhea 787.91 [facility] [id number] [place] [address] 11358- 1986 Nov, [facility] [id number] [place] [address] 50798- 2633 Nov, Diarrhea 787.91 [facility] [id number] [place] [address] 31230 2540 Nov, Diarrhea 787.91 and Hyperlipidemia 272.4 [facility] [id number] [place] [address] 29828- 4822 Nov, Diarrhea 787.91 [facility] [id number] [place] [address] 76889 2540 Nov, Affective disorder 296.90 [facility] [id number] [place] [address] 31042 2548 Nov, Affective disorder 296.90 [facility] [address], [place] [address]- 1954 Nov, Affective disorder 296.90 [facility] [id number] [place] [address] 67875- 5996 Nov, [facility] [id number] [place] [address] 86460- 7293 Nov, [facility] [id number] [place] [address] 38832- 2955 Nov, [facility] [address], [place] [address]- 1692 Nov, Episodic mood disorder 296.90 [facility] [address], [place] [address]- 4106 Nov, [facility] [id number] [place] [address] 26612- 6194 Nov, [facility] [id number] [place] [address] 04470- 3292 Nov, [facility] [id number] [place] [address] 48835- 2181 Nov, [facility] [address], [place] [address]- 6654 Nov, [facility] [id number] [place] [address] 10341- 9051 Nov, Lymphedema 457.1 ; Hyperlipidemia 272.4 ; Essential hypertension, benign 401.1 and Numbness of toes 782.0 [facility] [address], [place] [address]- 2944 Nov, Episodic mood disorder 296.90 [facility] [address], [place] [address]- 0364 Oct, [facility] [address], [place] [address]- 8949 Oct, [facility] [address], [place] [address]- 1372 Oct, [facility] [address], [place] [address]- 5622 Oct, [facility] [address], [place] [address]- 3743 Oct, [facility] [address], [place] [address]- 8573 Oct, [facility] [address] [facility] [id number] [place] [address]- 7210 Oct, 2014 [facility] [address] [facility] [id number] [place] [address]- 9301 Oct, 2014 [facility] [address] [facility] [id number] [place] [address]- 3239 Oct, Episodic mood disorder 296.90 [facility] [address] [facility] [id number] [place] [address]- 4470 30 Sep, 2014 [facility] [address] [facility] [id number] [place] [address]- 1665 29 Sep, 2014 [facility] [address] [facility] [id number] [place] [address]- 6385 Sep, [facility] [address] [facility] [id number] [place] [address]- 5813 Sep, [facility] [address] [facility] [id number] [place] [address]- 6104 Sep, [facility] [address] [facility] [id number], [place] [address]- 9738 Sep, Episodic mood disorder 296.90 [facility] [address] [facility] [id number] [place] [address]- 3121 Sep, Unspecified episodic mood disorder 296.90 [facility] [address] [facility] [id number], [place] [address]- 7739 18 Sep, 2014 [facility] [address] [facility] [id number], [place] [address]- 5520 18 Sep, 2014 [facility] [address] [facility] [id number] [place] [address]- 1597 16 Sep, 2014 Episodic mood disorder 296.90 [facility] [address] [facility] [id number], [place] [address]- 1592 15 Sep, 2014 [facility] [id number] [address]- 4213 Sep, [facility] [address], [place] [address]- 8919 Sep, [facility] [id number] [place] [address] 83029- 3705 Sep, Hematemesis 578.0 and Vomiting 787.03 [facility] [id number] [place] [address] 06322- 9598 Sep, Episodic mood disorder 296.90 [facility] [address], [place] [address]- 8675 Sep, [facility] [id number] [place] [address] 47733- 6081 Sep, [facility] [address], [place] [address]- 9758 Sep, Diabetes mellitus without mention of complication, type II or unspecified type, not stated as uncontrolled 250.00 and Other chronic pain 338.29 [facility] [address], [place] [address]- 2922 Sep, Episodic mood disorder 296.90 [facility] [id number] [place] [address] 16341- 5264 Sep, [facility] [address], [place] [address]- 8504 Sep, Episodic mood disorder 296.90 [facility] [address], [place] [address]- 1813 Sep, [facility] [address], [place] [address]- 2005 August, [facility] [address], [place] [address]- 4902 August, [facility] [id number] [address]- 9567 August, Episodic mood disorder 296.90 [facility] [id number] [place] [address]- 3115 August, [facility] [address] [facility] [id number], [place] [address]- 1369 August, Unspecified episodic mood disorder 296.90 [facility] [address] [facility] [id number] [place] [address] August, Vomiting 787.03 [facility] [address] [facility] [id number] [place] [address] August, [facility] [address] [facility] [id number] [place] [address] August, [facility] [address] [facility] [id number] [place] [address] August, [facility] [address] [id number] [place] [address] August, [facility] [address] [id number] [address] August, [facility] [address] [id number] [place] [address] Jul, [facility] [address] [id number] [address] Jul, [facility] [address] [id number] [address] Jul, [facility] [address] [id number] [address] Jun, [facility] [address] [facility] [id number] [place] [address] Jun, [facility] [address] [facility] [id number], [place] [address] Jun, [facility] [place] [facility] [address] [facility] [id number], [place] [address] Jun, [facility] [address] [id number], [place] [address] 30 Jun, 2014 [facility] [place] [facility] [address] [id number] [place] [address] Jun, [facility] [place] [facility] [address] [id number] [place] [address] Jun, [facility] [place] [facility] [address] [id number] [place] [address] Jun, [facility] [place] [facility] [address] [id number] [place] [address] Jun, [facility] [place] [facility] [address] [id number] [place] [address] Jun, [facility] [place] [facility] [address] [id number] [place] [address] Jun, [facility] [place] [facility] [address] [id number] [place] [address] Jun, [facility] [place] [facility] [address] [id number] [place] [address] Jun, [facility] [place] [facility] [address] [id number] [place] [address] Jun, [facility] [facility] [address] [id number] [place] [address] Jun, [facility] [place] [facility] [address] [id number] [place] [address] 2553 Jun, [facility] [place] [facility] [address] [id number] [place] [address] 5727 Jun, [facility] [place] [facility] [address] [id number] [place] [address] 8857 Jun, [facility] [place] [facility] [address] [id number] [place] [address]- 2111 Jun, [facility] [place] [facility] [address] [id number] [place] [address]- 4939 Jun, [facility] [place] [facility] [address] [id number] [place] [address] 4477 21 Jun, 2014 [facility] [place] [facility] [address] [id number] [place] [address]- 3306 20 Jun, 2014 [facility] [place] [facility] [address] [id number] [place] [address]- 3686 20 Jun, 2014 [facility] [place] [facility] [address] [id number] [place] [address]- 3256 20 Jun, 2014 [facility] [place] [facility] [address] [id number] [place] [address]- 7656 20 Jun, 2014 [facility] [place] [facility] [address] [id number] [place] [address]- 3834 19 Jun, 2014 [facility] [place] [facility] [address] [id number] [place] [address]- 0379 19 Jun, 2014 [facility] [place] [facility] [address] [id number] [place] [address]- 9372 18 Jun, 2014 [facility] [place] [facility] [address] [id number] [place] [address]- 7946 18 Jun, 2014 [facility] [place] [facility] [address] [id number] [place] [address]- 3627 17 Jun, 2014 [facility] [place] [facility] [address] [id number] [place] [address]- 2032 17 Jun, 2014 [facility] [place] [facility] [address] [id number] [place] [address]- 8151 16 Jun, 2014 [facility] [place] [facility] [address] [id number] [place] [address]- 9604 16 Jun, 2014 [facility] [place] [facility] [address] [id number] [place] [address]- 3646 16 Jun, 2014 [facility] [place] [facility] [address] [id number] [place] [address]- 1356 16 Jun, 2014 [facility] [place] [address] [id number] [place] [address]- 9583 Jun, [facility] [place] [facility] [address] [id number] [place] [address]- 9169 16 Jun, 2014 [facility] [place] [facility] [address] [id number] [place] [address]- 0051 Jun, [facility] [place] [facility] [address] [id number] [place] [address]- 8191 Jun, [facility] [place] [facility] [address] [id number] [place] [address]- 7968 Jun, [facility] [place] [facility] [address] [id number] [place] [address]- 1187 Jun, [facility] [place] [facility] [address] [id number] [place] [address]- 5489 Jun, [facility] [place] [facility] [address] [id number] [place] [address]- 1209 Jun, 2014 [facility] [place] [facility] [address] [id number] [place] [address]- 6739 Jun, [facility] [place] [facility] [address] [id number] [place] [address]- 0039 Jun, [facility] [place] [facility] [address] [id number] [place] [address]- 2899 Jun, [facility] [address] [id number], [place] [address]- 7021 Jun, [facility] [address] [id number], [place] [address]- 9474 Jun, 2014 [facility] [place] [facility] [address] [id number] [place] [address]- 7400 Jun, [facility] [place] [facility] [address] [id number] [place] [address]- 3647 Jun, [facility] [place] [facility] [address] [id number] [place] [address]- 7066 Jun, [facility] [place] [facility] [address] [id number] [place] [address]- 7588 Jun, [facility] [place] [facility] [address] [id number] [place] [address]- 4117 Jun, [facility] [address] [facility] [id number] [place] [address]- 2332 Jun, [facility] [address] [facility] [id number] [place] [address]- 9220 Jun, [facility] [address] [id number] [place] [address]- 2455 Jun, [facility] [facility] [address] [id number] [place] [address]- 8541 Jun, [facility] [address] [facility] [id number] [place] [address]- 3736 May, [facility] [address] [facility] [id number] [place] [address]- 5938 May, 2014 [facility] [address] [facility] [id number] [place] [address]- 4156 May, [facility] [address] [id number] [place] [address]- 1459 May, [facility] [address] [facility] [id number] [place] [address]- 5221 May, [facility] [address] [facility] [id number] [place] [address]- 2954 May, 2014 [facility] [address] [facility] [id number] [place] [address]- 2543 May, [facility] [address] [facility] [id number] [place] [address]- 4854 May, 2014 [facility] [address] [facility] [id number], [place] [address]- 7119 May, 2014 [facility] [address] [facility] [id number], [place] [address]- 4629 May, 2014 [facility] [address] [facility] [id number] [place] [address]- 7521 18 May, 2014 [facility] [address] [facility] [id number] [place] [address]- 6286 18 May, 2014 [facility] [address] [facility] [id number] [place] [address]- 8766 13 May, 2014 [facility] [address] [facility] [id number] [place] [address]- 2541 13 May, 2014 [facility] [address] [facility] [id number] [place] [address]- 8605 11 May, 2014 [facility] [address] [id number] [place] [address]- 7678 May, 2014 [facility] [address] [id number] [place] [address]- 7288 May, 2014 [facility] [address] [facility] [id number] [place] [address]- 5753 May, 2014 [facility] [address] [facility] [id number] [place] [address]- 2480 May, 2014 [facility] [address] [facility] [id number] [place] [address]- 5610 May, 2014 [facility] [address] [id number] [place] [address]- 2546 May, 2014 [facility] [address] [facility] [id number], [place] [address]- 2542 May, 2014 [facility] [address] [facility] [id number] [place] [address]- 1874 May, 2014 [facility] [address] [facility] [id number], [place] [address]- 0119 05 May, 2014 [facility] [id number] [place] [address]- 4729 May, [facility] [address] [id number] [place] [address]- 6123 May, [facility] [address] [id number] [place] [address]- 4743 May, [facility] [address] [id number] [place] [address]- 3813 Apr, [facility] [address] [id number] [place] [address]- 1396 Apr, [facility] [address] [id number] [place] [address]- 2089 Apr, [facility] [address] [id number] [place] [address]- 2935 Apr, [facility] [address] [id number] [place] [address]- 3680 Apr, [facility] [address] [id number] [place] [address]- 3565 Apr, [facility] [address] [id number] [place] [address]- 2801 Apr, [facility] [address] [id number] [place] [address]- 6758 Apr, [facility] [address] [id number], [place] [address]- 2285 Apr, [facility] [address] [id number], [place] [address]- 5244 Apr, [facility] [address] [id number] [place] [address]- 0307 Apr, [facility] [address] [id number], [place] [address]- 3500 Apr, [facility] [address] [id number] [place] [address]- 6131 Apr, [facility] [address] [id number] [place] [address]- 8945 Apr, [facility] [address] [id number] [place] [address]- 5364 Apr, [facility] [address] [id number] [place] [address]- 0883 Apr, [facility] [address] [id number] [place] [address]- 5044 Apr, [facility] [address] [id number] [place] [address]- 2464 Apr, [facility] [address] [id number] [place] [address]- 5606 Apr, [facility] [address] [id number] [place] [address]- 5853 Apr, [facility] [address] [id number] [place] [address]- 6754 Mar, [facility] [address] [id number] [place] [address]- 7619 Mar, [facility] [address] [id number] [place] [address]- 8284 Mar, [facility] [address] [id number] [place] [address]- 2413 Mar, [facility] [address] [id number] [place] [address]- 9152 Mar, [facility] [address] [id number] [place] [address]- 9576 Mar, [facility] [address] [id number] [place] [address]- 3177 Mar, [facility] [address] [id number] [place] [address]- 0483 18 Mar, 2014 [facility] [address] [id number] [place] 0053 15 Mar, 2014 [facility] [address] [id number] [place] [address]- 6566 15 Mar, 2014 [facility] [address] [id number] [place] [address]- 9608 Mar, [facility] [address] [id number] [place] [address]- 5732 Mar, [facility] [address] [id number] [place] [address]- 2810 Mar, [facility] [address] [id number] [place] [address]- 5035 Mar, [facility] [facility] [address] [id number] [place] [address]- 7327 Mar, [facility] [address] [id number] [place] [address]- 7224 Mar, [facility] [address] [id number] [place] [address]- 3545 Feb, [facility] [address] [id number] [place] [address]- 6226 Feb, [facility] [address] [id number] [place] [address]- 8542 Feb, [facility] [address] [id number] [place] [address]- 4169 Feb, [facility] [address] [id number] [place] [address]- 8044 Feb, [facility] [facility] [address] [id number] [place] [address]- 2915 Feb, [facility] [address] [id number] [place] [address]- 9268 Feb, [facility] [place] [address] [id number] [place] [address]- 6203 18 Feb, 2014 [facility] [address] [id number], [place] [address]- 6275 18 Feb, 2014 [facility] [address] [id number] [place] [address]- 7573 17 Feb, 2014 [facility] [address] [id number] [place] [address]- 9500 17 Feb, 2014 [facility] [address] [id number] [place] [address]- 2213 17 Feb, 2014 [facility] [address] [id number] [place] [address]- 5455 17 Feb, 2014 [facility] [address] [id number] [place] [address]- 8319 Feb, [facility] [address] [id number] [place] [address]- 4222 Feb, [facility] [address] [id number] [place] [address]- 6014 Feb, [facility] [place] [facility] [address] [id number] [place] [address]- 1616 Feb, [facility] [place] [facility] [address] [id number] [place] [address]- 3138 Feb, [facility] [place] [facility] [address] [id number] [place] [address]- 9166 Feb, [facility] [facility] [address] [id number], [place] [address]- 0535 Feb, [facility] [address] [id number], [place] [address]- 5851 Feb, [facility] [facility] [address] [id number] [place] [address]- 6707 Jan, [facility] [place] [facility] [address] [id number] [place] [address]- 2704 Jan, [facility] [place] [facility] [address] [id number] [place] [address]- 1617 Jan, [facility] [place] [facility] [address] [id number] [place] [address]- 9998 30 Jan, 2013 [facility] [place] [facility] [address] [id number] [place] [address]- 0679 24 Jan, 2014 [facility] [place] [facility] [address] [id number] [place] [address]- 8909 24 Jan, 2014 [facility] [place] [facility] [address] [id number] [place] [address]- 8754 Jan, [facility] [place] [facility] [address] [id number] [place] [address]- 0412 21 Jan, 2014 [facility] [place] [facility] [address] [id number] [place] [address]- 5648 20 Jan, 2014 [facility] [place] [facility] [address] [id number] [place] [address]- 2221 20 Jan, 2014 [facility] [place] [facility] [address] [id number] [place] [address]- 9904 17 Jan, 2014 [facility] [place] [facility] [address] [id number] [place] [address]- 7038 17 Jan, 2014 [facility] [place] [facility] [address] [id number] [place] [address]- 9140 17 Jan, 2014 [facility] [place] [facility] [address] [id number] [place] [address]- 7661 17 Jan, 2014 [facility] [place] [facility] [address] [id number] [place] [address]- 6520 15 Jan, 2014 [facility] [place] [facility] [address] [id number] [place] [address]- 6449 15 Jan, 2014 [facility] [place] [facility] [address] [id number] [place] [address]- 1535 14 Jan, 2014 [facility] [place] [facility] [address] [id number] [place] [address]- 7158 14 Jan, 2013 [facility] [place] [facility] [address] [id number] [place] [address]- 9647 Jan, [facility] [place] [facility] [address] [id number] [place] [address]- 7452 Jan, [facility] [place] [facility] [address] [id number] [place] [address]- 6184 Jan, [facility] [place] [facility] [address] [id number] [place] [address]- 6460 Jan, [facility] [place] [facility] [address] [id number] [place] [address]- 1259 Jan, [facility] [place] [facility] [address] [id number] [place] [address]- 7055 Jan, [facility] [place] [facility] [address] [id number] [place] [address]- 5471 Jan, [facility] [place] [facility] [address] [id number] [place] [address]- 3217 25 Dec, 2013 [facility] [place] [facility] [address] [id number], [place] [address]- 6544 25 Dec, 2013 [facility] [place] [facility] [address] [id number] [place] [address]- 9163 23 Dec, 2013 [facility] [place] [facility] [address] [id number], [place] [address]- 1621 23 Dec, 2013 [facility] [place] [facility] [address] [id number], [place] [address]- 4451 19 Dec, 2013 [facility] [place] [facility] [address] [id number], [place] [address]- 7560 19 Dec, 2013 [facility] [place] [facility] [address] [id number] [place] [address]- 3639 17 Dec, 2013 [facility] [place] [facility] [address] [id number] [place] [address]- 0147 17 Dec, 2013 [facility] [place] [facility] [address] [id number], [place] [address]- 1053 09 Dec, 2013 [facility] [place] [facility] [address] [id number], [place] [address]- 8550 09 Dec, 2013 [facility] [place] [facility] [address] [id number] [place] [address]- 9208 08 Dec, 2013 [facility] [place] [facility] [address] [id number] [place] [address]- 5184 Dec, 2013 [facility] [place] [facility] [address] [id number] [place] [address]- 5507 Dec, 2013 [facility] [place] [facility] [address] [id number] [place] [address]- 8764 Dec, 2013 [facility] [place] [facility] [address] [id number] [place] [address]- 9263 Dec, 2013 [facility] [place] [facility] [address] [id number] [place] [address]- 3806 Dec, 2013 [facility] [place] [facility] [address] [id number] [place] [address]- 5726 Dec, 2013 [facility] [place] [facility] [address] [id number] [place] [address]- 7898 Dec, 2013 [facility] [place] [facility] [address] [id number] [place] [address]- 4570 Nov, [facility] [place] [facility] [address] [id number] [place] [address]- 2772 Nov, [facility] [place] [facility] [address] [id number] [place] [address]- 0382 Nov, [facility] [place] [facility] [address] [id number] [place] [address]- 4055 Nov, [facility] [place] [facility] [address] [id number] [place] [address]- 6377 Nov, [facility] [place] [facility] [address] [id number] [place] [address]- 2160 Nov, [facility] [place] [facility] [address] [id number] [place] [address]- 2428 Nov, [facility] [place] [facility] [address] [id number] [place] [address]- 5037 Nov, [facility] [place] [facility] [address] [id number] [place] [address]- 8750 Nov, [facility] [place] [facility] [address] [id number] [place] [address]- 5586 Nov, [facility] [place] [facility] [address] [id number] [place] [address]- 4270 Nov, [facility] [place] [facility] [address] [id number] [place] [address] Nov, [facility] [place] [facility] [address] [id number] [place] [address] Oct, [facility] [place] [facility] [address] [id number] [place] [address] Oct, [facility] [place] [facility] [address] [id number] [place] [address] Oct, [facility] [place] [facility] [address] [id number] [place] [address] Oct, [facility] [place] [facility] [address] [id number] [place] [address] Oct, [facility] [place] [facility] [address] [id number] [place] [address] Oct, [facility] [place] [facility] [address] [id number] [place] [address] Oct, [facility] [place] [facility] [address] [id number] [place] [address] Oct, [facility] [place] [facility] [address] [id number] [place] [address] Oct, [facility] [place] [facility] [address] [id number] [place] [address] Oct, [facility] [place] [facility] [address] [id number] [place] [address] 16 Oct, 2013 [facility] [place] [facility] [address] [id number] [place] [address]- [address] 16 Oct, 2013 [facility] [place] [facility] [address] [id number] [place] [address]- [address] 14 Oct, 2013 [facility] [place] [facility] [address] [id number] [place] [address] 14 Oct, 2013 [facility] [place] [facility] [address] [id number] [place] [address] 13 Oct, 2013 [facility] [place] [facility] [address] [id number] [place] [address] 13 Oct, 2013 [facility] [place] [facility] [address] [id number] [place] [address] Oct, [facility] [place] [facility] [address] [id number] [place] [address]- [address] 27 Sep, 2013 [facility] [place] [facility] [address] [id number] [place] [address]- [address]16 27 Sep, 2013 [facility] [place] [facility] [address] [id number] [place] [address] 20 Sep, 2013 [facility] [place] [facility] [address] [id number] [place] [address]- 8121 20 Sep, 2013 [facility] [place] [facility] [address] [id number] [place] [address]- 3166 18 Sep, 2013 [facility] [place] [facility] [address] [id number] [place] [address]- [address] 18 Sep, 2013 [facility] [place] [facility] [address] [id number] [place] [address]- 6228 17 Sep, 2013 [facility] [place] [facility] [address] [id number] [place] [address]- 7161 17 Sep, 2013 [facility] [place] [facility] [address] [id number] [place] [address]- 0447 11 Sep, 2013 [facility] [place] [facility] [address] [id number] [place] [address]- 0466 11 Sep, 2013 [facility] [place] [facility] [address] [id number] [place] [address] 37[address] Sep, [facility] [place] [facility] [address] [id number] [place] [address]- 5294 Sep, [facility] [place] [facility] [address] [id number] [place] [address]- 9292 Sep, [facility] [place] [facility] [address] [id number] [place] [address]- 45[address] Sep, [facility] [place] [facility] [address] [id number] [place] [address]- 0099 Sep, [facility] [place] [facility] [address] [id number] [place] [address]- 7842 Sep, [facility] [place] [facility] [address] [id number] [place] [address] 8616 Sep, [facility] [place] [facility] [address] [id number] [place] [address]- [address]151 Sep, [facility] [place] [facility] [address] [id number] [place] [address]- 78[address] Sep, [facility] [place] [facility] [address] [id number] [place] [address]- 0283 Sep, [facility] [place] [facility] [address] [id number] [place] [address]- 6342 Sep, [facility] [place] [facility] [address] [id number] [place] [address]- 0018 Sep, [facility] [place] [facility] [address] [id number] [place] [address] 1847 August, [facility] [place] [facility] [address] [id number] [place] [address]- 5468 August, [facility] [place] [facility] [address] [id number] [place] [address]- 3733 August, [facility] [place] [facility] [address] [id number] [place] [address]- 6378 August, [facility] [place] [facility] [address] [id number] [place] [address]- [address] August, [facility] [place] [facility] [address] [id number] [place] [address]- 4[address] August, [facility] [place] [facility] [address] [id number] [place] [address]- 4864 August, [facility] [place] [facility] [address] [id number] [place] [address]- 7769 August, [facility] [place] [facility] [address] [id number] [place] [address]- 5[address] August, [facility] [place] [facility] [address] [id number] [place] [address]- 5569 August, [facility] [place] [facility] [address] [id number] [place] [address]- 1375 August, [facility] [place] [facility] [address] [id number] [place] [address]- 7845 Jul, [facility] [place] [facility] [address] [id number] [place] [address]- 7088 Jul, [facility] [place] [facility] [address] [id number] [place] [address]- 3664 Jul, [facility] [place] [facility] [address] [id number] [place] [address]- 9228 Jul, [facility] [place] [facility] [address] [id number] [place] [address]- 2354 Jul, [facility] [place] [facility] [address] [id number] [place] [address]- 7915 Jul, [facility] [place] [facility] [address] [id number] [place] [address]- 9700 Jul, [facility] [place] [facility] [address] [id number] [place] [address]- 2837 Jul, [facility] [place] [facility] [address] [id number] [place] [address]- 7506 Jul, [facility] [place] [facility] [address] [id number] [place] [address]- 5870 18 Jul, 2013 [facility] [place] [facility] [address] [id number] [place] [address]- 5990 16 Jul, 2013 [facility] [place] [facility] [address] [id number] [place] [address]- 6976 Jul, [facility] [place] [facility] [address] [id number] [place] [address]- 7135 Jul, [facility] [place] [facility] [address] [id number] [place] [address]- 8529 Jul, [facility] [place] [facility] [address] [id number] [place] [address]- 8408 Jul, [facility] [place] [facility] [address] [id number] [place] [address]- 5827 Jul, [facility] [place] [facility] [address] [id number] [place] [address]- 1750 Jul, [facility] [place] [facility] [address] [id number] [place] [address]- 2957 Jul, [facility] [place] [facility] [address] [id number] [place] [address]- 6851 Jul, [facility] [place] [facility] [address] [id number] [place] [address]- 4174 Jul, [facility] [place] [facility] [address] [id number] [place] [address]- 1788 Jul, [facility] [place] [facility] [address] [id number] [place] [address]- 6076 Jul, [facility] [place] [facility] [address] [id number] [place] [address]- 7369 Jul, [facility] [place] [facility] [address] [id number] [place] [address] Jun, [facility] [address] [id number] [place] [address] 3[address] Jun, [facility] [place] [facility] [address] [id number] [place] [address] Jun, [facility] [address] [id number] [place] [address] 1265 Jun, [facility] [place] [facility] [address] [id number] [place] [address] 9507 Jun, [facility] [address] [id number] [place] [address] 6732 Jun, [facility] [address] [id number] [place] [address] 6607 Jun, [facility] [place] [facility] [address] [id number] [place] [address] 6234 Jun, [facility] [address] [id number] [place] [address]- 1471 Jun, [facility] [place] [facility] [address] [id number] [place] [address] 6337 Jun, [facility] [address] [id number] [place] [address] 6962 Jun, [facility] [place] [facility] [address] [id number] [place] [address] 6440 Jun, [facility] [place] [facility] [address] [id number] [place] [address] 2878 May, [facility] [place] [facility] [address] [id number] [place] [address] 7047 May, [facility] [place] [facility] [address] [id number] [place] [address]- 0061 Apr, [facility] [place] [facility] [address] [id number] [place] [address]- 3827 Apr, [facility] [place] [facility] [address] [id number] [place] [address]- 9571 Apr, [facility] [place] [facility] [address] [id number] [place] [address]- 9726 Apr, [facility] [place] [facility] [address] [id number] [place] [address]- 6523 Apr, [facility] [place] [facility] [address] [id number] [place] [address]- 0770 Apr, [facility] [place] [facility] [address] [id number] [place] [address]- 1317 Apr, [facility] [place] [facility] [address] [id number] [place] [address]- 5384 Apr, [facility] [place] [facility] [address] [id number] [place] [address]- 0271 Apr, [facility] [place] [facility] [address] [id number] [place] [address]- 1987 Apr, [facility] [place] [facility] [address] [id number] [place] [address]- 7038 Apr, [facility] [place] [facility] [address] [id number] [place] [address]- 7514 Mar, [facility] [place] [facility] [address] [id number] [place] [address]- 8448 16 Mar, 2013 [facility] [place] [facility] [address] [id number] [place] [address]- 7714 Mar, [facility] [place] [facility] [address] [id number] [place] [address]- 2185 Mar, [facility] [place] [facility] [address] [id number] [place] [address]- 5344 Feb, [facility] [place] [facility] [address] [id number] [place] [address] Feb, [facility] [place] [facility] [address] [id number], [place] [address] 3964 Feb, [facility] [place] [facility] [address] [id number] [place] [address]- 4230 Feb, [facility] [place] [facility] [address] [id number], [place] [address] 6938 Feb, [facility] [place] [facility] [address] [id number] [place] [address]- 5696 Feb, [facility] [place] [facility] [address] [id number], [place] [address]- 1136 Feb, [facility] [place] [facility] [address] [id number] [place] [address] 9509 Feb, [facility] [place] [facility] [address] [id number], [place] [address]- 1513 Feb, [facility] [place] [facility] [address] [id number], [place] [address]- 4536 Feb, [facility] [place] [facility] [address] [id number], [place] [address] 1603 Feb, [facility] [place] [facility] [address] [id number], [place] [address]- 2773 Jan, [facility] [place] [facility] [address] [id number], [place] [address]- 7794 Jan, [facility] [place] [facility] [address] [id number], [place] [address]- 4551 Jan, [facility] [place] [facility] [address] [id number], [place] [address]- 8262 Jan, [facility] [place] [facility] [address] [id number], [place] [address]- 3725 Jan, [facility] [place] [facility] [address] [id number], [place] [address]- 7567 Jan, [facility] [place] [facility] [address] [id number], [place] [address]- 1012 Jan, [facility] [place] [facility] [address] [id number] [place] [address]- 2273 02 Jan, 2013 [facility] [place] [facility] [address] [id number] [place] [address]- 9496 30 Sep, 2012 [facility] [place] [facility] [address] [id number] [place] [address] 2546 25 Sep, 2012 [facility] [place] [facility] [address] [id number] [place] [address] 2546 18 Sep, 2012 [facility] [place] [facility] [address] [id number] [place] [address] 2544 17 Sep, 2012 [facility] [place] [facility] [address] [id number] [place] [address]- 0816 17 Dec, 2012 [facility] [place] [facility] [address] [id number] [place] [address]- 4761 16 Dec, 2012 [facility] [place] [facility] [address] [id number] [place] [address]- 6789 13 Dec, 2012 [facility] [place] [facility] [address] [id number] [place] [address]- 6102 11 Dec, 2012 [facility] [place] [facility] [address] [id number] [place] [address]- 6457 05 Dec, 2012 [facility] [place] [facility] [address] [id number] [place] [address]- 3022 04 Dec, 2012 [facility] [place] [facility] [address] [id number] [place] [address]- 2543 30 Nov, 2012 [facility] [place] [facility] [address] [id number] [place] [address] 254 29 Nov, 2012 [facility] [place] [facility] [address] [id number] [place] [address] 2542 22 Nov, 2012 [facility] [place] [facility] [address] [id number] [place] [address]- 2549 16 Nov, 2012 [facility] [place] [facility] [address] [id number] [place] [address]- 8711 Nov, [facility] [place] [facility] [address] [id number] [place] [address]- 4429 Nov, [facility] [place] [facility] [address] [id number] [place] [address]- 8732 Nov, [facility] [place] [facility] [address] [id number] [place] [address]- 4856 Oct, [facility] [place] [facility] [address] [id number] [place] [address]- 0414 Oct, [facility] [place] [facility] [address] [id number] [place] [address]- 3480 Oct, [facility] [place] [facility] [address] [id number] [place] [address]- 2401 Oct, [facility] [place] [facility] [address] [id number] [place] [address]- 1746 Oct, [facility] [place] [facility] [address] [id number] [place] [address]- 7730 Oct, [facility] [place] [facility] [address] [id number] [place] [address]- 7868 Sep, [facility] [place] [facility] [address] [id number] [place] [address]- 1971 Sep, [facility] [place] [facility] [address] [id number] [place] [address]- 7563 Sep, [facility] [place] [facility] [address] [id number], [place] [address]- 3110 14 Sep, 2012 [facility] [place] [facility] [address] [id number] [place] [address]- 5753 13 Sep, 2012 [facility] [place] [facility] [address] [id number] [place] [address]- 8937 10 Sep, 2012 [facility] [place] [facility] [address] [id number] [place] [address]- 5429 07 Sep, 2012 [facility] [place] [facility] [address] [id number] [place] [address]- 6569 Sep, [facility] [address] [id number] [place] [address]- 1395 Sep, [facility] [address] [id number] [place] [address]- 3181 August, [facility] [address] [id number] [place] [address]- 8269 August, [facility] [address] [id number] [place] [address]- 7306 August, [facility] [address] [id number] [place] [address]- 4388 August, [facility] [address] [id number] [place] [address]- 4048 August, [facility] [address] [id number] [place] [address]- 4342 August, [facility] [address] [id number] [place] [address]- 8490 August, [facility] [address] [id number] [place] [address]- 6898 August, [facility] [address] [id number] [place] [address]- 3078 Jul, [facility] [address] [id number] [place] [address]- 7115 Jul, [facility] [address] [place] [id number] Jul [facility] [address] [id number] [place] [address]- 9909 Jun, [facility] [address] [id number] [place] [address]- 8304 Jun, [facility] [address] [id number] [place] [address]- 1441 Jun, [facility] [address] [id number] [place] [address]- 0722 Jun, [facility] [address] [id number] [place] [address]- 4387 Jun, [facility] [place] [facility] [address] [id number] [place] [address]- 3145 Jun, [facility] [address] [id number] [place] [address]- 4694 May, [facility] [address] [id number] [place] [address]- 7637 May, [facility] [address] [id number] [place] [address]- 7692 May, [facility] [address] [id number] [place] [address]- 7910 May, [facility] [address] [id number] [place] [address]- 9618 May, [facility] [address] [id number] [place] [address]- 7088 Apr, [facility] [address] [id number] [place] [address]- 9382 Apr, [facility] [address] [id number] [place] [address]- 4249 Apr, [facility] [address] [id number] [place] [address]- 7204 Apr, [facility] [address] [id number] [place] [address]- 1265 Apr, [facility] [place] [facility] [address] [id number] [place] [address]- 4858 Apr, [facility] [place] [facility] [address] [id number] [place] [address]- 5290 Mar, [facility] [address] [id number] [place] [address]- 5818 20 Mar, 2012 [facility] [place] [facility] [address] [id number] [place] [address]- 3104 20 Mar, 2012 [facility] [place] [facility] [address] [id number] [place] [address]- 1286 19 Mar, 2012 [facility] [place] [facility] [address] [id number] [place] [address]- 2836 19 Mar, 2012 [facility] [place] [facility] [address] [id number] [place] 4586 18 Mar, 2012 [facility] [place] [facility] [address] [id number] [place] [address]- 6583 18 Mar, 2012 [facility] [place] [facility] [address] [id number] [place] [address]- 4272 Mar, [facility] [place] [facility] [address] [id number] [place] [address]- 2861 Mar, [facility] [place] [facility] [address] [id number] [place] [address]- 0333 05 Mar, 2012 [facility] [place] [facility] [address] [id number] [place] [address]- 2535 05 Mar, 2012 [facility] [place] [facility] [address] [id number] [place] [address]- 1411 28 Feb, 2012 [facility] [place] [facility] [address] [id number] [place] [address]- 8160 28 Feb, 2012 [facility] [place] [facility] [address] [id number], [place] [address]- 3123 Feb, [facility] [place] [facility] [address] [id number] [place] [address]- 4386 Feb, [facility] [place] [facility] [address] [id number] [place] [address]- 7224 Feb, [facility] [place] [facility] [address] [id number] [place] [address]- 2396 16 Feb, 2012 [facility] [place] [facility] [address] [id number] [place] [address]- 3735 16 Feb, 2012 [facility] [place] [facility] [address] [id number] [place] [address]- 1069 Feb, [facility] [place] [facility] [address] [id number] [place] [address]11 Feb, [facility] [place] [facility] [address] [id number] [place] [address]- 7609 Feb, [facility] [place] [facility] [address] [id number] [place] [address]- 8187 Feb, [facility] [place] [facility] [address] [id number] [place] [address]- 0384 Jan, [facility] [place] [facility] [address] [id number] [place] [address]- 7521 Jan, [facility] [place] [facility] [address] [id number] [place] [address]- 0711 Jan, [facility] [place] [facility] [address] [id number] [place] [address]- 5644 Jan, [facility] [place] [facility] [address] [id number] [place] [address]- 1729 Jan, [facility] [place] [facility] [address] [facility] [id number] [place] [address]- 1911 Jan, [facility] [place] [facility] [address] [id number] [place] [address]- 4350 09 Jan, 2012 [facility] [place] [facility] [address] [id number] [place] [address]- 9292 24 Sep2011 [facility] [place] [facility] [address] [id number] [place] [address]- 7812 17 Sep2011 [facility] [place] [facility] [address] [id number] [place] [address]- 8865 13 Sep2011 [facility] [place] [facility] [address] [id number] [place] [address]- 9388 Dec, [facility] [place] [facility] [address] [id number] [place] [address]- 9708 Nov, [facility] [place] [facility] [address] [id number] [place] [address]- 8430 Nov, [facility] [place] [facility] [address] [id number] [place] [address]- 9303 Nov, [facility] [place] [facility] [address] [id number] [place] [address]- 5951 Nov, [facility] [place] [facility] [address] [id number] [place] [address]- 6125 Nov, [facility] [place] [facility] [address] [id number] [place] [address]- 8494 Nov, [facility] [place] [facility] [address] [id number] [place] [address]- 6254 Nov, [facility] [place] [facility] [address] [id number] [place] [address]- 0496 Nov, [facility] [place] [facility] [address] [id number] [place] [address]- 5517 Nov, [facility] [place] [facility] [address] [id number] [place] [address]- 1446 Nov, [facility] [place] [facility] [address] [id number] [place] [address]- 5497 Nov, [facility] [place] [facility] [address] [id number] [place] [address]- 0022 Nov, [facility] [place] [facility] [address] [id number] [place] [address]- 5909 Nov, [facility] [place] [facility] [address] [id number] [place] [address]- 2631 Oct, [facility] [place] [facility] [address] [id number] [place] [address]- 9569 Oct, [facility] [place] [facility] [address] [id number] [place] [address]- 4869 Oct, [facility] [place] [facility] [address] [id number] [place] [address]- 5481 Oct, [facility] [place] [facility] [address] [id number] [place] [address]- 3822 Oct, [facility] [place] [facility] [address] [id number] [place] [address]- 7018 Oct, [facility] [place] [facility] [address] [id number] [place] [address]- 5403 Oct, [facility] [place] [facility] [address] [id number] [place] [address]- 1425 Oct, [facility] [place] [facility] [address] [id number] [place] [address]- 6511 Oct, [facility] [place] [facility] [address] [id number] [place] [address]- 1560 Sep, [facility] [place] [facility] [address] [id number] [place] [address]- 8283 Sep, [facility] [place] [facility] [address] [id number] [place] [address]- 6621 Sep, [facility] [place] [facility] [address] [id number] [place] [address]- 2211 Sep, [facility] [place] [facility] [address] [id number] [place] [address]- 3599 Sep, [facility] [place] [facility] [address] [id number] [place] [address]- 2109 Sep, [facility] [place] [facility] [address] [id number] [place] [address]- 8234 Sep, [facility] [place] [facility] [address] [id number] [place] [address]- 8012 Sep, [facility] [place] [facility] [address] [id number] [place] [address]- 3161 August, [facility] [place] [facility] [address] [id number], [place] [address]- 5208 August, [facility] [address] [id number] 2538 August, [facility] [address] [id number] [address]2 August, [facility] [id number], [place] [address]- 0840 August, [facility] [address] [facility] [id number], [place] [address]- 9772 August, [facility] [id number], [place] [address]- 3720 August, [facility] [id number], [place] [address]- 5766 August, [facility] [id number], [place] [address]- 1777 August, [facility] [id number], [place] [address]- 1238 August, [facility] [address] [id number], [place] [address]- 6641 August, [facility] [address] [id number], [place] [address]- 9921 August, [facility] [address] [id number], [place] [address]- 1459 Oct, IMMUNIZATIONS No Known Immunizations SOCIAL HISTORY Never Assessed REASON FOR VISIT Prior Authorization Request PLAN OF CARE VITAL SIGNS MEDICATIONS No [...] Hospitalization History suicidal ideations-[facility] 12/28 Hospitalization History hypoxia--[facility] 02/13/2016 Hospitalization History shortness of breath at june 2016 Hospitalization History Shortness of breath at august 2016 Hospitalization History SOB, chest pain at 12/2016
--- OUTSIDE RECORDS SUMMARY | 2018-02-11 13:17 | XMS REPORT ---
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 with diabetic polyneuropathy E11.42 [facility] [id number] [place] [address] 75713- 2324 Jun, Unspecified mood [affective] disorder F39 [facility] [id number] [place] [address] 79838- 7156 Jun, [facility] [id number] [place] [address] 62107- 8462 Jun, Unspecified mood [affective] disorder F39 [facility] [address], [place] [address]- 3063 Jun, Unspecified mood [affective] disorder F39 [facility] [address], [place] [address]- 1941 Jun, Unspecified mood [affective] disorder F39 [facility] [id number] [place] [address] 98585- 5410 Jun, Unspecified mood [affective] disorder F39 [facility] [id number] [place] [address] 83528- 4367 Jun, [facility] [id number] [place] [address] 37226- 9177 Jun, Type 2 diabetes mellitus with hyperglycemia E11.65 ; Oxygen dependent Z99.81 ; Folliculitis L73.9 ; Dysuria R30.0 ; Encounter for contraceptive management Z30.9 and Dog bite W54.0XXA [facility] [id number] [place] [address] 57536- 2426 Jun, Unspecified mood [affective] disorder F39 [facility] [id number] [place] [address] 97756- 5874 Jun, Type 2 diabetes mellitus with hyperglycemia E11.65 [facility] [id number] [place] [address] 29899- 8700 May, Unspecified mood [affective] disorder F39 [facility] [address], [place] [address]- 0677 May, [facility] [id number] [place] [address] 25350- 5307 May, [facility] [address], [place] [address]- 3434 May, [facility] [id number] [place] [address] 21586- 4881 Apr, [facility] [address], [place] [address]- 9984 Apr, Unspecified mood [affective] disorder F39 [facility] [id number] [place] [address] 62717- 7319 Apr, [facility] [id number] [place] [address] 62135- 8096 Apr, [facility] [id number] [place] [address] 76682- 6001 Apr, [facility] [id number] [place] [address] 22010- 6337 Apr, Dysuria R30.0 and Well woman exam (no gynecological exam) Z00.00 [place] [id number] [place] [address] 89359- 5166 Mar, [facility] [id number] [place] [address] 86085- 7537 Mar, [facility] [id number] [place] [address] [id number] Mar, Dental examination Z01.20 [place] [id number] [place] [address] 38726- 1656 Mar, Chronic diarrhea K52.9 ; Intractable vomiting with nausea, vomiting of unspecified type R11.2 ; Cellulitis, unspecified cellulitis site L03.90 ; Type 2 diabetes mellitus with diabetic polyneuropathy E11.42 and Postinflammatory hyperpigmentation L81.0 [facility] [id number] [place] [address] 09947- 9555 Mar, Unspecified mood [affective] disorder F39 [facility] [id number] [place] [address] 11958- 9599 Mar, Unspecified mood [affective] disorder F39 [facility] [id number] [place] [address] 82228- 0528 Mar, [facility] [id number], [place] [address]- 4420 Mar, [facility] [id number], [place] [address]- 7120 Mar, [facility] [id number], [place] [address]- 9884 Mar, [facility] [id number] [place] [address] 73696- 7476 Mar, [facility] [address] [facility] [id number], [place] [address]- 0795 Mar, [facility] [id number] [place] [address] 86126- 8664 Feb, Unspecified mood [affective] disorder F39 [facility] [id number] [place] [address] 07203- 7528 Feb, [facility] [id number], [place] [address]- 8027 Feb, [facility] [address], [place] [address]- 3293 Jan, Unspecified mood [affective] disorder F39 [facility] [place] [address] [address] [facility] [address] [id number] [id number] Jan, Encounter for dental examination Z01.20 [facility] [address], [place] [address]- 9846 Jan, [facility] [id number], [place] [address]- 7596 Jan, [facility] [address], [place] [address]- 2362 Jan, [facility] [id number], [place] [address]- 6736 Jan, [facility] [address], [place] [address]- 2757 Jan, [facility] [id number] [place] [address] 66902- 1484 08 Jan, 2015 Abdominal abscess K65.1 and Dental caries K02.9 [facility] [id number] [place] [address] 40088- 7429 Jan, [facility] [id number] [place] [address] 30644- 2867 30 Dec, 2014 Diabetes with neurological manifestations, type II or unspecified type, not stated as uncontrolled 250.60 ; Essential hypertension, benign 401.1 ; Concussion 850.9 and Skin texture changes 782.8 [facility] [address] 33595- 1459 Dec, [facility] [id number] [place] [address] 86181- 3774 24 Dec, 2014 [facility] [address] 56895- 1426 Dec, [facility] [id number] [place] [address] 92697- 5637 Dec, [facility] [id number] [place] [address] 17006- 1548 17 Dec, [address] [facility] [id number] [place] [address] 77548- 8335 14 Dec, 2014 [facility] [id number] [place] [address] 53063- 2542 10 Dec, [address] [facility] [id number] [place] [address] 84486- 6175 Dec, [facility] [id number] [place] [address] 96855- 0089 Dec, [facility] [id number] [place] [address] 49109- 6291 Dec, [facility] [address] [place] [address]- 1879 Dec, [facility] [id number] [place] [address] 75071- 1526 Nov, Affective disorder 296.90 [facility] [id number] [place] [address] 27362 254 Nov, [facility] [id number] [place] [address] 17088- 2767 Nov, Affective disorder 296.90 [facility] [id number] [place] [address] 12611 2546 Nov, Diarrhea 787.91 [facility] [id number] [place] [address] 14507- 3866 Nov, [facility] [id number] [place] [address] 81805- 1567 Nov, Diarrhea 787.91 [facility] [id number] [place] [address] 41723 2548 Nov, Diarrhea 787.[address] [facility] [id number] [place] [address] 12731- 9637 Nov, Diarrhea 787.91 [facility] [id number] [place] [address] 31209 2548 Nov, Affective disorder 296.90 [facility] [id number] [place] [address] 91306 2545 Nov, Affective disorder 296.90 [facility] [address], [place] [address]- 8244 Nov, Affective disorder 296.90 [facility] [id number] [place] [address] 47223- 0421 Nov, [facility] [id number] [place] [address] 47166- 9485 Nov, [facility] [id number] [place] [address] 63761- 5681 Nov, [facility] [address], [place] [address]- 9271 Nov, Episodic mood disorder 296.90 [facility] [address], [place] [address]- 5400 Nov, [facility] [id number] [place] [address] 91003- 7220 Nov, [facility] [id number] [place] [address] 37688- 7341 Nov, [facility] [id number] [place] [address] 32054- 7888 Nov, [facility] [address], [place] [address]- 0299 Nov, [facility] [id number] [place] [address] 62525- 7030 Nov, Lymphedema 457.1 ; Hyperlipidemia 272.4 ; Essential hypertension, benign 401.1 and Numbness of toes 782.0 [facility] [address], [place] [address]- 3618 Nov, Episodic mood disorder 296.90 [facility] [address], [place] [address]- 1665 Oct, [facility] [address], [place] [address]- 7348 Oct, [facility] [address], [place] [address]- 5939 Oct, [facility] [address], [place] [address]- 9773 Oct, [facility] [address], [place] [address]- 6917 Oct, [facility] [address], [place] [address]- 4063 Oct, [facility] [address] [facility] [id number] [place] [address]- 7002 Oct, 2014 [facility] [address] [facility] [id number] [place] [address]- 2094 Oct, 2014 [facility] [address] [facility] [id number] [place] [address]- 2301 Oct, Episodic mood disorder 296.90 [facility] [address] [facility] [id number] [place] [address]- 1346 30 Sep, 2014 [facility] [address] [facility] [id number] [place] [address]- 3403 29 Sep, 2014 [facility] [address] [facility] [id number] [place] [address]- 3916 Sep, [facility] [address] [facility] [id number] [place] [address]- 1045 Sep, [facility] [address] [facility] [id number] [place] [address]- 6659 Sep, [facility] [address] [facility] [id number], [place] [address]- 0294 Sep, Episodic mood disorder 296.90 [facility] [address] [facility] [id number] [place] [address]- 5813 Sep, Unspecified episodic mood disorder 296.90 [facility] [address] [facility] [id number], [place] [address]- 5088 18 Sep, 2014 [facility] [address] [facility] [id number], [place] [address]- 6950 18 Sep, 2014 [facility] [address] [facility] [id number] [place] [address]- 4312 16 Sep, 2014 Episodic mood disorder 296.90 [facility] [address] [facility] [id number], [place] [address]- 9991 15 Sep, 2014 [facility] [id number], [place] [address]- 8124 Sep, [facility] [address], [place] [address]- 6900 Sep, [facility] [id number] [place] [address] 12989- 3705 Sep, Hematemesis 578.[address] [facility] [id number] [place] [address] 14662- 4213 Sep, Episodic mood disorder 296.90 [facility] [address], [place] [address]- 1599 Sep, [facility] [id number] [place] [address] 43300- 2997 Sep, [facility] [address], [place] [address]- 8665 Sep, Diabetes mellitus without mention of complication, type II or unspecified type, not stated as uncontrolled 250.00 and Other chronic pain 338.29 [facility] [address], [place] [address]- 4958 Sep, Episodic mood disorder 296.90 [facility] [id number] [place] [address] 42542- 0604 Sep, [facility] [address], [place] [address]- 6380 Sep, Episodic mood disorder 296.90 [facility] [address], [place] [address]- 8508 Sep, [facility] [address] [address] 0706 August, [facility] [address], [place] [address]- 5524 August, [facility] [id number], [place] [address]- 9819 August, Episodic mood disorder 296.90 [facility] [id number] [place] [address]- 2674 August, [facility] [address] [facility] [id number], [place] [address]- 1400 August, Unspecified episodic mood disorder 296.90 [facility] [address] [facility] [id number] [place] [address]- 8731 August, Vomiting 787.03 [facility] [address] [facility] [id number] [place] [address]- 7078 August, [facility] [address] [facility] [id number] [place] [address]- 9407 August, [facility] [address] [facility] [id number] [place] [address]- 3754 August, [facility] [address] [id number] [place] [address] August, [facility] [address] [id number] [address] August, [facility] [address] [id number] [place] [address] Jul, [facility] [address] [id number] [address] Jul, [facility] [address] [id number] [address] Jul, [facility] [address] [id number], [place] [address] Jun, [facility] [address] [facility] [id number] [place] [address] Jun, [facility] [address] [facility] [id number], [place] [address] Jun, [facility] [place] [facility] [address] [facility] [id number], [place] [address] Jun, [facility] [address] [id number], [place] [address] 30 Jun, 2014 [facility] [place] [facility] [address] [id number] [place] [address] Jun, [facility] [place] [facility] [address] [id number] [place] [address] Jun, [facility] [place] [facility] [address] [id number] [place] [address] Jun, [facility] [place] [facility] [address] [id number] [place] [address] Jun, [facility] [place] [facility] [address] [id number] [place] [address] Jun, [facility] [place] [facility] [address] [id number] [place] [address] Jun, [facility] [place] [facility] [address] [id number] [place] [address] Jun, [facility] [place] [facility] [address] [id number] [place] [address] Jun, [facility] [place] [facility] [address] [id number] [place] [address] Jun, [facility] [place] [facility] [address] [id number] [place] [address] Jun, [facility] [place] [facility] [address] [id number] [place] [address] Jun, [facility] [place] [facility] [address] [id number] [place] [address] Jun, [facility] [place] [facility] [address] [id number] [place] [address] Jun, [facility] [place] [facility] [address] [id number] [place] [address] Jun, [facility] [place] [facility] [address] [id number] [place] [address] Jun, [facility] [place] [facility] [address] [id number] [place] [address] 21 Jun, 2014 [facility] [place] [facility] [address] [id number] [place] [address] 20 Jun, 2014 [facility] [place] [facility] [address] [id number] [place] [address] 20 Jun, 2014 [facility] [place] [facility] [address] [id number] [place] [address] 20 Jun, 2014 [facility] [place] [facility] [address] [id number] [place] [address] 2185 20 Jun, 2014 [facility] [place] [facility] [address] [id number] [place] [address] 9672 19 Jun, 2014 [facility] [place] [facility] [address] [id number] [place] [address]- 0308 19 Jun, 2014 [facility] [place] [facility] [address] [id number] [place] [address] 4167 18 Jun, 2014 [facility] [place] [facility] [address] [id number] [place] [address]- 7911 18 Jun, 2014 [facility] [place] [facility] [address] [id number] [place] [address]- 2172 17 Jun, 2014 [facility] [place] [facility] [address] [id number] [place] [address]- 8270 17 Jun, 2014 [facility] [place] [facility] [address] [id number] [place] [address]- 3944 16 Jun, 2014 [facility] [place] [facility] [address] [id number] [place] [address]- 6266 16 Jun, 2014 [facility] [place] [facility] [address] [id number] [place] [address]- 8096 16 Jun, 2014 [facility] [place] [facility] [address] [id number] [place] [address]- 5456 16 Jun, 2014 [facility] [place] [facility] [address] [id number] [place] [address]- 6969 Jun, [facility] [place] [facility] [address] [id number] [place] [address]- 4587 16 Jun, 2014 [facility] [place] [facility] [address] [id number] [place] [address]- 8718 Jun, [facility] [place] [facility] [address] [id number] [place] [address]- 8369 Jun, [facility] [place] [facility] [address] [id number] [place] [address]- 7572 Jun, [facility] [place] [facility] [address] [id number] [place] [address]- 6866 Jun, [facility] [place] [facility] [address] [id number] [place] [address]- 5395 Jun, [facility] [place] [facility] [address] [id number] [place] [address]- 9937 Jun, 2014 [facility] [place] [facility] [address] [id number] [place] [address]- 4698 Jun, [facility] [place] [facility] [address] [id number] [place] [address]- 6393 Jun, [facility] [place] [facility] [address] [id number] [place] [address]- 7375 Jun, [facility] [place] [facility] [address] [id number], [place] [address] 2795 Jun, [facility] [place] [facility] [address] [id number], [place] [address]- 7738 Jun, 2014 [facility] [place] [facility] [address] [id number] [place] [address]- 2695 Jun, [facility] [place] [facility] [address] [id number] [place] [address]- 7985 Jun, [facility] [place] [facility] [address] [id number] [place] [address]- 6709 Jun, [facility] [place] [facility] [address] [id number] [place] [address]- 9927 Jun, [facility] [place] [facility] [address] [id number] [place] [address]- 9290 Jun, [facility] [place] [facility] [address] [facility] [id number] [place] [address]- 1499 Jun, [facility] [place] [facility] [address] [facility] [id number] [place] [address]- 0200 Jun, [facility] [place] [facility] [address] [id number] [place] [address]- 9089 Jun, [facility] [place] [facility] [address] [id number] [place] [address]- 0626 Jun, [facility] [place] [facility] [address] [facility] [id number] [place] [address]- 3361 May, [facility] [place] [facility] [address] [facility] [id number] [place] [address]- 2055 May, 2014 [facility] [place] [facility] [address] [facility] [id number] [place] [address]- 8741 May, [facility] [place] [facility] [address] [id number] [place] [address]- 8461 May, [facility] [place] [facility] [address] [facility] [id number] [place] [address]- 6004 May, [facility] [place] [facility] [address] [facility] [id number] [place] [address]- 7115 May, 2014 [facility] [place] [facility] [address] [facility] [id number] [place] [address]- 2547 May, [facility] [place] [facility] [address] [facility] [id number] [place] [address]- 3930 May, 2014 [facility] [place] [facility] [address] [facility] [id number], [place] [address]- 8907 May, 2014 [facility] [place] [facility] [address] [facility] [id number], [place] [address]- 7712 May, 2014 [facility] [place] [facility] [address] [facility] [id number] [place] [address]- 4550 18 May, 2014 [facility] [place] [facility] [address] [facility] [id number] [place] [address]- 4956 18 May, 2014 [facility] [place] [facility] [address] [facility] [id number] [place] [address]- 1536 13 May, 2014 [facility] [place] [facility] [address] [facility] [id number] [place] [address]- 2543 13 May, 2014 [facility] [place] [facility] [address] [facility] [id number] [place] [address]- 1872 11 May, 2014 [facility] [place] [facility] [address] [id number] [place] [address]- 3880 May, 2014 [facility] [place] [facility] [address] [id number] [place] [address]- 9445 May, 2014 [facility] [place] [facility] [address] [facility] [id number] [place] [address]- 6446 May, 2014 [facility] [place] [facility] [address] [facility] [id number] [place] [address]- 9721 May, 2014 [facility] [place] [facility] [address] [facility] [id number] [place] [address]- 1753 May, 2014 [facility] [place] [facility] [address] [id number] [place] [address]- 2546 May, 2014 [facility] [place] [facility] [address] [facility] [id number], [place] [address]- 2541 May, 2014 [facility] [place] [facility] [address] [facility] [id number] [place] [address]- 5824 May, 2014 [facility] [place] [facility] [address] [facility] [id number], [place] [address]- 5117 05 May, 2014 [facility] [place] [facility] [id number] [place] [address]- 3175 May, [facility] [place] [facility] [address] [id number] [place] [address]- 1682 May, [facility] [place] [facility] [address] [id number] [place] [address]- 3048 May, [facility] [place] [facility] [address] [id number] [place] [address]- 0545 Apr, [facility] [place] [facility] [address] [id number] [place] [address]- 0633 Apr, [facility] [place] [facility] [address] [id number] [place] [address]- 0850 Apr, [facility] [place] [facility] [address] [id number] [place] [address]- 7241 Apr, [facility] [place] [facility] [address] [id number] [place] [address]- 7431 Apr, [facility] [place] [facility] [address] [id number] [place] [address]- 3024 Apr, [facility] [place] [facility] [address] [id number] [place] [address]- 4313 Apr, [facility] [place] [facility] [address] [id number] [place] [address]- 6674 Apr, [facility] [place] [facility] [address] [id number], [place] [address]- 8875 Apr, [facility] [place] [facility] [address] [id number], [place] [address]- 4314 Apr, [facility] [place] [facility] [address] [id number] [place] [address]- 3944 Apr, [facility] [place] [facility] [address] [id number], [place] [address]- 3883 Apr, [facility] [place] [facility] [address] [id number] [place] [address]- 3769 Apr, [facility] [place] [facility] [address] [id number] [place] [address]- 7473 Apr, [facility] [address] [id number] [place] [address]- 4198 Apr, [facility] [place] [facility] [address] [id number] [place] [address]- 1704 Apr, [facility] [place] [facility] [address] [id number] [place] [address]- 1008 Apr, [facility] [place] [facility] [address] [id number] [place] [address]- 1169 Apr, [facility] [place] [facility] [address] [id number] [place] [address]- 6281 Apr, [facility] [place] [facility] [address] [id number] [place] [address]- 2908 Apr, [facility] [address] [id number] [place] [address]- 9126 Mar, [facility] [place] [facility] [address] [id number] [place] [address]- 7300 Mar, [facility] [place] [facility] [address] [id number] [place] [address]- 5506 Mar, [facility] [place] [facility] [address] [id number] [place] [address]- 9979 Mar, [facility] [place] [facility] [address] [id number] [place] [address]- 9656 Mar, [facility] [place] [facility] [address] [id number] [place] [address]- 9342 Mar, [facility] [place] [facility] [address] [id number] [place] [address]- 4875 Mar, [facility] [place] [facility] [address] [id number] [place] [address]- 2813 18 Mar, 2014 [facility] [place] [facility] [address] [id number] [place]83 15 Mar, 2014 [facility] [place] [facility] [address] [id number] [place] [address]- 3964 15 Mar, 2014 [facility] [place] [facility] [address] [id number] [place] [address]- 9304 Mar, [facility] [place] [facility] [address] [id number] [place] [address]- 2409 Mar, [facility] [place] [facility] [address] [id number] [place] [address]- 5013 Mar, [facility] [place] [facility] [address] [id number] [place] [address]- 2267 Mar, [facility] [place] [facility] [address] [id number] [place] [address]- 5149 Mar, [facility] [place] [facility] [address] [id number] [place] [address]- 5193 Mar, [facility] [place] [facility] [address] [id number] [place] [address]- 6244 Feb, [facility] [place] [facility] [address] [id number] [place] [address]- 2627 Feb, [facility] [place] [facility] [address] [id number] [place] [address]- 2322 Feb, [facility] [place] [facility] [address] [id number] [place] [address]- 4760 Feb, [facility] [place] [facility] [address] [id number] [place] [address]- 2680 Feb, [facility] [place] [facility] [address] [id number] [place] [address]- 9431 Feb, [facility] [place] [facility] [address] [id number] [place] [address]- 7225 Feb, [facility] [place] [facility] [address] [id number] [place] [address]- 4219 18 Feb, 2014 [facility] [place] [facility] [address] [id number], [place] [address]- 7457 18 Feb, 2014 [facility] [place] [facility] [address] [id number] [place] [address]- 5173 17 Feb, 2014 [facility] [place] [facility] [address] [id number] [place] [address]- 6061 17 Feb, 2014 [facility] [place] [facility] [address] [id number] [place] [address]- 1597 17 Feb, 2014 [facility] [place] [facility] [address] [id number] [place] [address]- 5300 17 Feb, 2014 [facility] [place] [facility] [address] [id number] [place] [address]- 5166 Feb, [facility] [place] [facility] [address] [id number] [place] [address]- 0182 Feb, [facility] [place] [facility] [address] [id number] [place] [address]- 2333 Feb, [facility] [place] [facility] [address] [id number] [place] [address]- 5093 Feb, [facility] [place] [facility] [address] [id number] [place] [address]- 4411 Feb, [facility] [place] [facility] [address] [id number] [place] [address]- 2013 Feb, [facility] [place] [facility] [address] [id number], [place] [address]- 0655 Feb, [facility] [place] [facility] [address] [id number], [place] [address]- 5085 Feb, [facility] [place] [facility] [address] [id number] [place] [address]- 9430 Jan, [facility] [place] [facility] [address] [id number] [place] [address]- 2245 Jan, [facility] [place] [facility] [address] [id number] [place] [address]- 1347 Jan, [facility] [place] [facility] [address] [id number] [place] [address]- 0501 30 Jan, 2013 [facility] [place] [facility] [address] [id number] [place] [address]- 1621 24 Jan, 2014 [facility] [place] [facility] [address] [id number] [place] [address]- 8514 24 Jan, 2014 [facility] [place] [facility] [address] [id number] [place] [address]- 0699 Jan, [facility] [place] [facility] [address] [id number] [place] [address]- 3318 21 Jan, 2014 [facility] [place] [facility] [address] [id number] [place] [address]- 6725 20 Jan, 2014 [facility] [place] [facility] [address] [id number] [place] [address]- 7875 20 Jan, 2014 [facility] [place] [facility] [address] [id number] [place] [address]- 9269 17 Jan, 2014 [facility] [place] [facility] [address] [id number] [place] [address]- 6033 17 Jan, 2014 [facility] [place] [facility] [address] [id number] [place] [address]- 5005 17 Jan, 2014 [facility] [place] [facility] [address] [id number] [place] [address]- 4600 17 Jan, 2014 [facility] [place] [facility] [address] [id number] [place] [address]- 6062 15 Jan, 2014 [facility] [place] [facility] [address] [id number] [place] [address]- 7969 15 Jan, 2014 [facility] [place] [facility] [address] [id number] [place] [address]- 1074 14 Jan, 2014 [facility] [place] [facility] [address] [id number] [place] [address]- 1386 14 Jan, 2013 [facility] [place] [facility] [address] [id number] [place] [address]- 4476 Jan, [facility] [place] [facility] [address] [id number] [place] [address]- 7779 Jan, [facility] [place] [facility] [address] [id number] [place] [address]- 2516 Jan, [facility] [place] [facility] [address] [id number] [place] [address]- 7228 Jan, [facility] [place] [facility] [address] [id number] [place] [address]- 6402 Jan, [facility] [place] [facility] [address] [id number] [place] [address]- 4245 Jan, [facility] [place] [facility] [address] [id number] [place] [address]- 9577 Jan, [facility] [place] [facility] [address] [id number] [place] [address]- 4996 25 Dec, 2013 [facility] [place] [facility] [address] [id number], [place] [address]- 3228 25 Dec, 2013 [facility] [place] [facility] [address] [id number] [place] [address]- 6166 23 Dec, 2013 [facility] [place] [facility] [address] [id number], [place] [address]- 2071 23 Dec, 2013 [facility] [place] [facility] [address] [id number], [place] [address]- 6038 19 Dec, 2013 [facility] [place] [facility] [address] [id number], [place] [address]- 0181 19 Dec, 2013 [facility] [place] [facility] [address] [id number] [place] [address]- 4072 17 Dec, 2013 [facility] [place] [facility] [address] [id number] [place] [address]- 9113 17 Dec, 2013 [facility] [place] [facility] [address] [id number], [place] [address]- 1138 09 Dec, 2013 [facility] [place] [facility] [address] [id number], [place] [address]- 9090 09 Dec, 2013 [facility] [place] [facility] [address] [id number] [place] [address]- 4630 08 Dec, 2013 [facility] [place] [facility] [address] [id number] [place] [address]- 7456 Dec, 2013 [facility] [place] [facility] [address] [id number] [place] [address]- 6241 Dec, 2013 [facility] [place] [facility] [address] [id number] [place] [address]- 9481 Dec, 2013 [facility] [place] [facility] [address] [id number] [place] [address]- 9334 Dec, 2013 [facility] [place] [facility] [address] [id number] [place] [address]- 8985 Dec, 2013 [facility] [place] [facility] [address] [id number] [place] [address]- 7682 Dec, 2013 [facility] [place] [facility] [address] [id number] [place] [address]- 3577 Dec, 2013 [facility] [place] [facility] [address] [id number] [place] [address]- 4099 Nov, [facility] [place] [facility] [address] [id number] [place] [address]- 2557 Nov, [facility] [place] [facility] [address] [id number] [place] [address]- 0214 Nov, [facility] [place] [facility] [address] [id number] [place] [address]- 5922 Nov, [facility] [place] [facility] [address] [id number] [place] [address]- 5091 Nov, [facility] [place] [facility] [address] [id number] [place] [address]- 9879 Nov, [facility] [place] [facility] [address] [id number] [place] [address]- 5997 Nov, [facility] [place] [facility] [address] [id number] [place] [address]- 7417 Nov, [facility] [place] [facility] [address] [id number] [place] [address]- 5889 Nov, [facility] [place] [facility] [address] [id number] [place] [address]- 8636 Nov, [facility] [place] [facility] [address] [id number] [place] [address]- 1315 Nov, [facility] [place] [facility] [address] [id number] [place] [address]- 0886 Nov, [facility] [place] [facility] [address] [id number] [place] [address]- 9840 Oct, [facility] [place] [facility] [address] [id number] [place] [address]- 8387 Oct, [facility] [place] [facility] [address] [id number] [place] [address]- 6740 Oct, [facility] [place] [facility] [address] [id number] [place] [address]- 7019 Oct, [facility] [place] [facility] [address] [id number] [place] [address]- 9809 Oct, [facility] [place] [facility] [address] [id number] [place] [address]- 6565 Oct, [facility] [place] [facility] [address] [id number] [place] [address]- 0497 Oct, [facility] [place] [facility] [address] [id number] [place] [address]- 2073 Oct, [facility] [place] [facility] [address] [id number] [place] [address]- 3356 Oct, [facility] [place] [facility] [address] [id number] [place] [address]- 5915 Oct, [facility] [place] [facility] [address] [id number] [place] [address]- 5848 16 Oct, 2013 [facility] [place] [facility] [address] [id number] [place] [address]- 6730 16 Oct, 2013 [facility] [place] [facility] [address] [id number] [place] [address]- 5451 14 Oct, 2013 [facility] [place] [facility] [address] [id number] [place] [address]- 7348 14 Oct, 2013 [facility] [place] [facility] [address] [id number] [place] [address]- 5728 13 Oct, 2013 [facility] [place] [facility] [address] [id number] [place] [address] 13 Oct, 2013 [facility] [place] [facility] [address] [id number] [place] [address] Oct, [facility] [place] [facility] [address] [id number] [place] [address] 9870 27 Sep, 2013 [facility] [place] [facility] [address] [id number] [place] [address]- [address] 27 Sep, 2013 [facility] [place] [facility] [address] [id number] [place] [address] 20 Sep, 2013 [facility] [place] [facility] [address] [id number] [place] [address] 20 Sep, 2013 [facility] [place] [facility] [address] [id number] [place] [address] 8586 18 Sep, 2013 [facility] [place] [facility] [address] [id number] [place] [address] 4[address] 18 Sep, 2013 [facility] [place] [facility] [address] [id number] [place] [address]- [address]246 17 Sep, 2013 [facility] [place] [facility] [address] [id number] [place] [address]- 3644 17 Sep, 2013 [facility] [place] [facility] [address] [id number] [place] [address]- 4935 11 Sep, 2013 [facility] [place] [facility] [address] [id number] [place] [address]- [address]78 11 Sep, 2013 [facility] [place] [facility] [address] [id number] [place] [address] 9368 Sep, [facility] [place] [facility] [address] [id number] [place] [address]- 6298 Sep, [facility] [place] [facility] [address] [id number] [place] [address] Sep, [facility] [place] [facility] [address] [id number] [place] [address] Sep, [facility] [place] [facility] [address] [id number] [place] [address] 35[address] Sep, [facility] [place] [facility] [address] [id number] [place] [address]- [address] Sep, [facility] [place] [facility] [address] [id number] [place] [address]- [address]35 Sep, [facility] [place] [facility] [address] [id number] [place] [address]774 Sep, [facility] [place] [facility] [address] [id number] [place] [address]- 3897 Sep, [facility] [place] [facility] [address] [id number] [place] [address]- 9871 Sep, [facility] [place] [facility] [address] [id number] [place] [address] 8796 Sep, [facility] [place] [facility] [address] [id number] [place] [address]- [address]126 Sep, [facility] [place] [facility] [address] [id number] [place] [address]- 9410 August, [facility] [place] [facility] [address] [id number] [place] [address]- 1312 August, [facility] [place] [facility] [address] [id number] [place] [address]- 2177 August, [facility] [place] [facility] [address] [id number] [place] [address]- [address] August, [facility] [place] [facility] [address] [id number] [place] [address]396 August, [facility] [place] [facility] [address] [id number] [place] [address] August, [facility] [place] [facility] [address] [id number] [place] [address]- 5566 August, [facility] [place] [facility] [address] [id number] [place] [address] 3961 August, [facility] [place] [facility] [address] [id number] [place] [address] 73[address] August, [facility] [place] [facility] [address] [id number] [place] [address] 7029 August, [facility] [place] [facility] [address] [id number] [place] [address]159 August, [facility] [place] [facility] [address] [id number] [place] [address]- [address] Jul, [facility] [place] [facility] [address] [id number] [place] [address] 8849 Jul, [facility] [place] [facility] [address] [id number] [place] [address]- 2475 Jul, [facility] [place] [facility] [address] [id number] [place] [address]- 9989 Jul, [facility] [place] [facility] [address] [id number] [place] [address]- 5359 Jul, [facility] [place] [facility] [address] [id number] [place] [address] 2174 Jul, [facility] [place] [facility] [address] [id number] [place] [address] 0337 Jul, [facility] [place] [facility] [address] [id number] [place] [address]- 1197 Jul, [facility] [place] [facility] [address] [id number] [place] [address]- 3839 Jul, [facility] [place] [facility] [address] [id number] [place] [address]- 4476 18 Jul, 2013 [facility] [place] [facility] [address] [id number] [place] [address]- 0014 16 Jul, 2013 [facility] [place] [facility] [address] [id number] [place] [address]- 9673 Jul, [facility] [place] [facility] [address] [id number] [place] [address]- 6991 Jul, [facility] [place] [facility] [address] [id number] [place] [address]- 8486 Jul, [facility] [place] [facility] [address] [id number] [place] [address]- 5227 Jul, [facility] [place] [facility] [address] [id number] [place] [address]- 2331 Jul, [facility] [place] [facility] [address] [id number] [place] [address]- 6075 Jul, [facility] [place] [facility] [address] [id number] [place] [address]- 1233 Jul, [facility] [place] [facility] [address] [id number] [place] [address]- 3600 Jul, [facility] [place] [facility] [address] [id number] [place] [address]- 9365 Jul, [facility] [place] [facility] [address] [id number] [place] [address]- 1152 Jul, [facility] [place] [facility] [address] [id number] [place] [address]- 1436 Jul, [facility] [place] [facility] [address] [id number] [place] [address]- 9435 Jul, [facility] [place] [facility] [address] [id number] [place] [address]- 8931 Jun, [facility] [address] [id number] [place] [address]- 5956 Jun, [facility] [place] [facility] [address] [id number] [place] [address]- 7583 Jun, [facility] [address] [id number] [place] [address]- 9674 Jun, [facility] [place] [facility] [address] [id number] [place] [address]- 8131 Jun, [facility] [address] [id number] [place] [address]- 9584 Jun, [facility] [facility] [address] [id number] [place] [address]- 7989 Jun, [facility] [place] [facility] [address] [id number] [place] [address]- 5850 Jun, [facility] [address] [id number] [place] [address] Jun, [facility] [place] [facility] [address] [id number] [place] [address] Jun, [facility] [address] [id number] [place] [address] Jun, [facility] [place] [facility] [address] [id number] [place] [address] Jun, [facility] [place] [facility] [address] [id number] [place] [address] 47[address] May, [facility] [place] [facility] [address] [id number] [place] [address] 9[address] May, [facility] [place] [facility] [address] [id number] [place] [address] 39[address] Apr, [facility] [place] [facility] [address] [id number] [place] [address]54 Apr, [facility] [place] [facility] [address] [id number] [place] [address] Apr, [facility] [place] [facility] [address] [id number] [place] [address]93 Apr, [facility] [place] [facility] [address] [id number] [place] [address]- 2535 Apr, [facility] [place] [facility] [address] [id number] [place] [address] 2860 Apr, [facility] [place] [facility] [address] [id number] [place] [address]- 7883 Apr, [facility] [place] [facility] [address] [id number] [place] [address]- 8789 Apr, [facility] [place] [facility] [address] [id number] [place] [address]- 0872 Apr, [facility] [place] [facility] [address] [id number] [place] [address]- 7172 Apr, [facility] [place] [facility] [address] [id number] [place] [address]- 4038 Apr, [facility] [place] [facility] [address] [id number] [place] [address] 6008 Mar, [facility] [place] [facility] [address] [id number] [place] [address]- 5979 16 Mar, 2013 [facility] [place] [facility] [address] [id number] [place] [address]- 7423 Mar, [facility] [place] [facility] [address] [id number] [place] [address]- 7189 Mar, [facility] [place] [facility] [address] [id number] [place] [address]- 6741 Feb, [facility] [place] [facility] [address] [id number] [place] [address] Feb, [facility] [place] [facility] [address] [id number], [place] [address] Feb, [facility] [place] [facility] [address] [id number] [place] [address]- 4663 Feb, [facility] [place] [facility] [address] [id number], [place] [address] Feb, [facility] [place] [facility] [address] [id number] [place] [address]- 5093 Feb, [facility] [place] [facility] [address] [id number], [place] [address] Feb, [facility] [place] [facility] [address] [id number] [place] [address]- 8225 Feb, [facility] [place] [facility] [address] [id number], [place] [address] Feb, [facility] [place] [facility] [address] [id number], [place] [address] 6[address] Feb, [facility] [place] [facility] [address] [id number], [place] [address] Feb, [facility] [place] [facility] [address] [id number], [place] [address]- [address] Jan, [facility] [place] [facility] [address] [id number], [place] [address] 3414 Jan, [facility] [place] [facility] [address] [id number], [place] [address] 93[address] Jan, [facility] [place] [facility] [address] [id number], [place] [address]- 9724 Jan, [facility] [place] [facility] [address] [id number], [place] [address]- 0605 Jan, [facility] [place] [facility] [address] [id number], [place] [address]- 6566 Jan, [facility] [place] [facility] [address] [id number], [place] [address]- 2528 Jan, [facility] [place] [facility] [address] [id number] [place] [address]- 6108 02 Jan, 2013 [facility] [place] [facility] [address] [id number] [place] [address]- 7376 30 Sep, 2012 [facility] [place] [facility] [address] [id number] [place] [address] 2546 25 Sep, 2012 [facility] [place] [facility] [address] [id number] [place] [address] 2546 18 Sep, 2012 [facility] [place] [facility] [address] [id number] [place] [address] 254 17 Sep, 2012 [facility] [place] [facility] [address] [id number] [place] [address]- 0496 17 Dec, 2012 [facility] [place] [facility] [address] [id number] [place] [address]- 9324 16 Dec, 2012 [facility] [place] [facility] [address] [id number] [place] [address]- 1041 13 Dec, 2012 [facility] [place] [facility] [address] [id number] [place] [address] 7804 11 Dec, 2012 [facility] [place] [facility] [address] [id number] [place] [address]- 6625 05 Dec, 2012 [facility] [place] [facility] [address] [id number] [place] [address]- 9031 04 Dec, 2012 [facility] [place] [facility] [address] [id number] [place] [address]- 2541 30 Nov, 2012 [facility] [place] [facility] [address] [id number] [place] [address] 2545 29 Nov, 2012 [facility] [place] [facility] [address] [id number] [place] [address] 2542 22 Nov, 2012 [facility] [place] [facility] [address] [id number] [place] [address]- 2547 16 Nov, 2012 [facility] [place] [facility] [address] [id number] [place] [address]- 7246 Nov, [facility] [place] [facility] [address] [id number] [place] [address]- 0393 Nov, [facility] [place] [facility] [address] [id number] [place] [address]- 0260 Nov, [facility] [place] [facility] [address] [id number] [place] [address]- 2250 Oct, [facility] [place] [facility] [address] [id number] [place] [address]- 8116 Oct, [facility] [place] [facility] [address] [id number] [place] [address]- 4771 Oct, [facility] [place] [facility] [address] [id number] [place] [address]- 2312 Oct, [facility] [place] [facility] [address] [id number] [place] [address]- 4830 Oct, [facility] [place] [facility] [address] [id number] [place] [address]- 9246 Oct, [facility] [place] [facility] [address] [id number] [place] [address]- 8269 Sep, [facility] [place] [facility] [address] [id number] [place] [address]- 3196 Sep, [facility] [place] [facility] [address] [id number] [place] [address]- 9191 Sep, [facility] [place] [facility] [address] [id number], [place] [address]- [address]24 14 Sep, 2012 [facility] [place] [facility] [address] [id number] [place] [address]- 8180 13 Sep, 2012 [facility] [place] [facility] [address] [id number] [place] [address]- 8952 10 Sep, 2012 [facility] [place] [facility] [address] [id number] [place] [address]- 0304 07 Sep, 2012 [facility] [place] [facility] [address] [id number] [place] [address]- 2073 Sep, [facility] [address] [id number] [place] [address]- 4922 Sep, [facility] [address] [id number] [place] [address]- 6861 August, [facility] [address] [id number] [place] [address]- 0752 August, [facility] [address] [id number] [place] [address]- 7691 August, [facility] [address] [id number] [place] [address]- 5545 August, [facility] [address] [id number] [place] [address]- 4121 August, [facility] [address] [id number] [place] [address]- 3195 August, [facility] [address] [id number] [place] [address]- 3854 August, [facility] [address] [id number] [place] [address]- 4427 August, [facility] [address] [id number] [place] [address]- 6658 Jul, [facility] [address] [id number] [place] [address]- 0356 Jul, [facility] [address] [place] [id number] Jul [facility] [address] [id number] [place] [address]- 6142 Jun, [facility] [address] [id number] [place] [address]- 6111 Jun, [facility] [address] [id number] [place] [address]- 1634 Jun, [facility] [address] [id number] [place] [address]- 2623 Jun, [facility] [address] [id number] [place] [address]- 8712 Jun, [facility] [place] [facility] [address] [id number] [place] [address]- 8913 Jun, [facility] [address] [id number] [place] [address]- 5240 May, [facility] [address] [id number] [place] [address]- 1549 May, [facility] [address] [id number] [place] [address]- 4394 May, [facility] [address] [id number] [place] [address]- 6284 May, [facility] [address] [id number] [place] [address]- 0077 May, [facility] [address] [id number] [place] [address]- 4921 Apr, [facility] [address] [id number] [place] [address]- 5445 Apr, [facility] [address] [id number] [place] [address]- 4982 Apr, [facility] [address] [id number] [place] [address]- 6159 Apr, [facility] [address] [id number] [place] [address]- 8476 Apr, [facility] [place] [facility] [address] [id number] [place] [address]- 2405 Apr, [facility] [place] [facility] [address] [id number] [place] [address]- 6901 Mar, [facility] [address] [id number] [place] [address]- 3242 20 Mar, 2012 [facility] [place] [facility] [address] [id number] [place] [address]- 1078 20 Mar, 2012 [facility] [place] [facility] [address] [id number] [place] [address]- 0356 19 Mar, 2012 [facility] [place] [facility] [address] [id number] [place] [address]- 3526 19 Mar, 2012 [facility] [place] [facility] [address] [id number] [place]130 18 Mar, 2012 [facility] [place] [facility] [address] [id number] [place] [address]- 9172 18 Mar, 2012 [facility] [place] [facility] [address] [id number] [place] [address]- 0458 Mar, [facility] [place] [facility] [address] [id number] [place] [address]- 2885 Mar, [facility] [place] [facility] [address] [id number] [place] [address]- 5832 05 Mar, 2012 [facility] [place] [facility] [address] [id number] [place] [address]- 7841 05 Mar, 2012 [facility] [place] [facility] [address] [id number] [place] [address]- 9639 28 Feb, 2012 [facility] [place] [facility] [address] [id number] [place] [address]- 6113 28 Feb, 2012 [facility] [place] [facility] [address] [id number], [place] [address]- 2837 Feb, [facility] [place] [facility] [address] [id number] [place] [address]- 7276 Feb, [facility] [place] [facility] [address] [id number] [place] [address]- 9738 Feb, [facility] [place] [facility] [address] [id number] [place] [address]- 0426 16 Feb, 2012 [facility] [place] [facility] [address] [id number] [place] [address]- 4876 16 Feb, 2012 [facility] [place] [facility] [address] [id number] [place] [address]- 8070 Feb, [facility] [place] [facility] [address] [id number] [place] [address]70 Feb, [facility] [place] [facility] [address] [id number] [place] [address]- 7231 Feb, [facility] [place] [facility] [address] [id number] [place] [address]- 4344 Feb, [facility] [place] [facility] [address] [id number] [place] [address]- 3536 Jan, [facility] [place] [facility] [address] [id number] [place] [address]- 1992 Jan, [facility] [place] [facility] [address] [id number] [place] [address]- 5144 Jan, [facility] [place] [facility] [address] [id number] [place] [address]- 4613 Jan, [facility] [place] [facility] [address] [id number] [place] [address]- 3391 Jan, [facility] [place] [facility] [address] [facility] [id number] [place] [address]- 5670 Jan, [facility] [place] [facility] [address] [id number] [place] [address]- 0371 09 Jan, 2012 [facility] [place] [facility] [address] [id number] [place] [address]- 3785 24 Sep2011 [facility] [place] [facility] [address] [id number] [place] [address]- 9827 17 Sep2011 [facility] [place] [facility] [address] [id number] [place] [address]- 3946 13 Sep2011 [facility] [place] [facility] [address] [id number] [place] [address]- 1152 Dec, [facility] [place] [facility] [address] [id number] [place] [address]- 8140 Nov, [facility] [place] [facility] [address] [id number] [place] [address]- 7349 Nov, [facility] [place] [facility] [address] [id number] [place] [address]- 7771 Nov, [facility] [place] [facility] [address] [id number] [place] [address]- 6219 Nov, [facility] [place] [facility] [address] [id number] [place] [address]- 7812 Nov, [facility] [place] [facility] [address] [id number] [place] [address]- 9937 Nov, [facility] [place] [facility] [address] [id number] [place] [address]- 5123 Nov, [facility] [place] [facility] [address] [id number] [place] [address]- 4310 Nov, [facility] [place] [facility] [address] [id number] [place] [address]- 8551 Nov, [facility] [place] [facility] [address] [id number] [place] [address]- 3177 Nov, [facility] [place] [facility] [address] [id number] [place] [address]- 3238 Nov, [facility] [place] [facility] [address] [id number] [place] [address]- 2218 Nov, [facility] [place] [facility] [address] [id number] [place] [address]- 6737 Nov, [facility] [place] [facility] [address] [id number] [place] [address]- 0955 Oct, [facility] [place] [facility] [address] [id number] [place] [address]- 9852 Oct, [facility] [place] [facility] [address] [id number] [place] [address]- 9814 Oct, [facility] [place] [facility] [address] [id number] [place] [address]- 7830 Oct, [facility] [place] [facility] [address] [id number] [place] [address]- 6956 Oct, [facility] [place] [facility] [address] [id number] [place] [address]- 2653 Oct, [facility] [place] [facility] [address] [id number] [place] [address]- 0866 Oct, [facility] [place] [facility] [address] [id number] [place] [address]- 5886 Oct, [facility] [place] [facility] [address] [id number] [place] [address]- 6256 Oct, [facility] [place] [facility] [address] [id number] [place] [address]- 7683 Sep, [facility] [place] [facility] [address] [id number] [place] [address]- 5647 Sep, [facility] [place] [facility] [address] [id number] [place] [address]- 6466 Sep, [facility] [place] [facility] [address] [id number] [place] [address]- 6602 Sep, [facility] [place] [facility] [address] [id number] [place] [address]- 2140 Sep, [facility] [place] [facility] [address] [id number] [place] [address]- 4108 Sep, [facility] [place] [facility] [address] [id number] [place] [address]- 2030 Sep, [facility] [place] [facility] [address] [id number] [place] [address]- 2649 Sep, [facility] [place] [facility] [address] [id number] [place] [address]- 0333 August, [facility] [place] [facility] [address] [id number], [place] [address] August, [facility] [address] [id number], [place] [address]247 August, [facility] [address] [id number] [address] 2342 August, [facility] [id number] [address] 8886 August, [facility] [address] [facility] [id number], [place] [address] 0940 August, [facility] [id number] [address] 0749 August, [facility] [id number] [address] 6401 August, [facility] [id number] [address] 4866 August, [facility] [id number] [address] 7835 August, [facility] [address] [id number] [address] 37[address] August, [facility] [address] [id number], [place] [address] August, [facility] [address] [id number], [place] [address]- 9960 Oct, IMMUNIZATIONS No Known Immunizations SOCIAL HISTORY [...] Surgical History bladder surgery Hospitalization History Via [facility] for right groin pain 05/2011 Hospitalization History Via [facility] for wound on buttocks 08/2012 Hospitalization History Via [facility], hypoxia secondary to pneumonia 12/02-12/09 Hospitalization History Pneumonia, elevated CO2 on Bipap was in ICU 08/2013 Hospitalization History Hypoxia, Exacerbation COPD, Chest pain 09/05/15 Hospitalization History suicidal ideations-[facility] 12/28 Hospitalization History hypoxia--[facility] 02/13/2016 Hospitalization History shortness of breath at june 2016 Hospitalization History Shortness of breath at august 2016 Hospitalization History SOB, chest pain at 12/2016
--- OUTSIDE RECORDS SUMMARY | 2018-02-11 13:19 | XMS REPORT ---
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 [address] 41703- 5538 May, Unspecified mood [affective] disorder [id number] [place] [address] 04078- 7886 May, [facility] [id number] [place] [address] 51360- 1961 May, [facility] [id number] [place] [address] 80842- 3844 May, [facility] [address], [place] [address]- 3166 Apr, [facility] [id number] [place] [address] 07875- 5939 Apr, Unspecified mood [affective] disorder F39 [facility] [id number] [place] [address] 27012- 0026 Apr, [facility] [id number] [place] [address] 62630- 9140 Apr, [facility] [id number] [place] [address] 86909- 6243 Apr, [facility] [id number] [place] [address] 90724- 1665 Apr, Dysuria R30.0 and Well woman exam (no gynecological exam) Z00.00 [facility] [id number] [place] [address] 70483- 3599 Mar, [facility] [id number] [place] [address] 70506- 0516 Mar, [facility] [id number] [place] [address] [id number] Mar, Dental examination Z01.20 [facility] [id number] [place] [address] 95492- 0553 Mar, Chronic diarrhea K52.9 ; Intractable vomiting with nausea, vomiting of unspecified type R11.2 ; Cellulitis, unspecified cellulitis site L03.90 ; Type 2 diabetes mellitus with diabetic polyneuropathy E11.42 and Postinflammatory hyperpigmentation L81.0 [facility] [id number] [place] [address] 24059- 9937 Mar, Unspecified mood [affective] disorder F39 [facility] [id number] [place] [address] 40048- 4127 Mar, Unspecified mood [affective] disorder F39 [facility] [address] [facility] [id number], [place] [address]- 3466 Mar, [facility] [address] [facility] [id number], [place] [address]- 1382 Mar, [facility] [address] [facility] [id number], [place] [address]- 4885 Mar, [facility] [address] [facility] [id number] [place] [address] 14808- 0277 Mar, [facility] [address] [facility] [id number], [place] [address]- 7548 Mar, [facility] [address] [facility] [id number] [place] [address] 24532- 2586 Mar, [facility] [id number], [place] [address]- 3712 Feb, Unspecified mood [affective] disorder F39 [facility] [address] [facility] [id number], [place] [address]- 2903 Feb, [facility] [id number], [place] [address]- 5030 Feb, [facility] [id number], [place] [address]- 9569 Jan, Unspecified mood [affective] disorder F39 [facility] [id number] [id number] [id number] Jan, Encounter for dental examination Z01.20 [facility] [address], [place] [address]- 6319 Jan, [facility] [id number], [place] [address]- 0729 Jan, [facility] [id number], [place] [address]- 5572 Jan, [facility] [address], [place] [address]- 4800 Jan, [facility] [address], [place] [address]- 1654 Jan, [facility] [id number] [place] [address] 25151- 9629 Jan, Abdominal abscess K65.1 and Dental caries K02.9 [facility] [id number] [place] [address] 69132- 5124 Jan, [facility] [id number] [place] [address] 53508- 8600 30 Dec, 2014 Diabetes with neurological manifestations, type II or unspecified type, not stated as uncontrolled 250.60 ; Essential hypertension, benign 401.1 ; Concussion 850.9 and Skin texture changes 782.8 [facility] [id number] [place] [address] 95081- 7406 Dec, [facility] [id number] [place] [address] 13355- 5110 24 Dec, 2014 [facility] [id number] [place] [address] 98699- 2318 Dec, [facility] [id number] [place] [address] 54572- 2427 Dec, [facility] [id number] [place] [address] 27844- 1086 17 Dec, 2014 Affective disorder 296.90 [facility] [id number] [place] [address] 96129- 2602 14 Dec, 2014 [facility] [id number] [place] [address] 28707- 9641 10 Dec, 2014 Affective disorder 296.90 [facility] [id number] [place] [address] 62678- 0391 04 Dec, 2014 [facility] [address], [place] [address]- 8324 04 Dec, 2014 [facility] [address], [place] [address] 2546 Dec, [facility] [address], [place] [address] 2546 Dec, [facility] [address], [place] [address] 2546 Nov, Affective disorder 296.90 [facility] [id number] [place] [address] 85225 2546 Nov, [facility] [address], [place] [address] 2546 Nov, Affective disorder 296.90 [facility] [id number] [place] [address] 77715 2546 Nov, Diarrhea 787.91 [facility] [address], [place] [address] 2546 Nov, [facility] [address], [place] [address] 2546 Nov, Diarrhea 787.91 [facility] [id number] [place] [address] 00839 2546 Nov, Diarrhea 787.91 and Hyperlipidemia 272.4 [facility] [address], [place] [address] 2546 Nov, Diarrhea 787.91 [facility] [address], [place] [address] 2546 Nov, Affective disorder 296.90 [facility] [id number], [place] [address] 2546 Nov, Affective disorder 296.90 [facility] [address], [place] [address] 2546 Nov, Affective disorder 296.90 [facility] [id number], [place] [address] 2546 Nov, [facility] [address], [place] [address]- 5688 Nov, [facility] [address], [place] [address]- 5395 Nov, [facility] [address], [place] [address]- 4905 Nov, Episodic mood disorder 296.90 [facility] [address], [place] [address]- 5409 Nov, [facility] [address], [place] [address]- 5006 Nov, [facility] [id number] [place] [address] 35477- 9900 Nov, [facility] [id number], [place] [address]- 7714 Nov, [facility] [id number] [place] [address] 97350- 2058 Nov, [facility] [address], [place] [address]- 3607 Nov, Lymphedema 457.1 ; Hyperlipidemia 272.4 ; Essential hypertension, benign 401.1 and Numbness of toes 782.0 [facility] [address], [place] [address]- 3201 Nov, Episodic mood disorder 296.90 [facility] [address], [place] [address]- 4546 Oct, [facility] [address], [place] [address]- 9880 Oct, [facility] [address], [place] [address]- 8814 Oct, [facility] [address], [place] [address]- 5444 Oct, [facility] [address], [place] [address]- 8768 14 Oct, 2014 [facility] [address] [facility] [id number] [place] [address]- 6241 Oct, [facility] [address] [facility] [id number], [place] [address]- 5842 Oct, 2014 [facility] [id number], [place] [address]- 9373 Oct, [facility] [address] [facility] [id number]- 7363 Oct, Episodic mood disorder 296.90 [facility] [id number], [place] [address]- 4902 30 Sep, 2014 [facility] [id number], [place] [address]- 9144 Sep, [facility] [address], [place] [address]- 8683 Sep, [facility] [id number], [place] [address]- 5929 Sep, [facility] [address], [place] [address]- 5723 Sep, [facility] [id number], [place] [address]- 7098 Sep, Episodic mood disorder 296.90 [facility] [address], [place] [address]- 6645 Sep, Unspecified episodic mood disorder 296.90 [facility] [address] [facility] [id number], [place] [address]- 1620 Sep, [facility] [address] [facility] [id number], [place] [address]- 2926 Sep, [facility] [address] [facility] [id number][place]- 1509 16 Sep, 2014 Episodic mood disorder 296.90 [facility] [id number], [place] [address]- 6038 Sep, [facility] [address], [place] [address]- 8843 Sep, [facility] [address], [place] [address]- 8267 Sep, [facility] [address], [place] [address]- 9632 Sep, Hematemesis 578.0 and Vomiting 787.03 [facility] [address], [place] [address]- 5170 Sep, Episodic mood disorder 296.90 [facility] [id number] [place] [address] 75197- 5549 Sep, [facility] [address], [place] [address]- 8562 Sep, [facility] [id number] [place] [address] 35801- 2439 Sep, Diabetes mellitus without mention of complication, type II or unspecified type, not stated as uncontrolled 250.00 and Other chronic pain 338.29 [facility] [address], [place] [address]- 6566 Sep, Episodic mood disorder 296.90 [facility] [address], [place] [address]- 3695 Sep, [facility] [address], [place] [address]- 6243 Sep, Episodic mood disorder 296.90 [facility] [address], [place] [address]- 3305 Sep, [facility] [address], [place] [address]- 5412 August, [facility] [address], [place] [address]- 7653 August, [facility] [address] [place] [address]- 9064 August, Episodic mood disorder 296.90 [facility] [id number] [place] [address]- 8717 August, [facility] [address] [facility] [id number] [place] [address]- 6335 August, Unspecified episodic mood disorder 296.90 [facility] [address] [facility] [id number] [place] [address]- 7279 August, Vomiting 787.03 [facility] [address] [facility] [id number] [place] [address]- 2046 August, [facility] [id number] [place] [address]- 9165 August, [facility] [address] [place] [address]- 1449 August, [facility] [address] [id number] [place] [address]- 3157 August, [facility] [id number] [place] [address]- 6376 August, [facility] [id number] [place] [address]- 1783 Jul, [facility] [id number] [place] [address]- 0503 Jul, [facility] [id number] [place] [address] Jul, [facility] [address] [id number] [place] [id number] [address] Jun, [facility] [address] [id number] [place] [address] Jun, [facility] [address] [id number] [place] [address] Jun, [facility] [id number] [place] [address] 30 Jun, 2014 [facility] [place] [facility] [address] [id number] [place] [address]- [address] 30 Jun, 2014 [facility] [place] [facility] [address] [id number] [place] [address]- [address] 30 Jun, 2014 [facility] [place] [facility] [address] [id number] [place] [address]- [address] 30 Jun, 2014 [facility] [place] [facility] [address] [id number] [place] [address]- [address] 30 Jun, 2014 [facility] [place] [facility] [address] [id number] [place] [address]- [address] Jun, [facility] [place] [facility] [address] [id number] [place] [address]- [address] Jun, [facility] [place] [facility] [address] [id number] [place] [address]- [address] Jun, [facility] [place] [facility] [address] [id number] [place] [address]- [address] Jun, [facility] [place] [facility] [address] [id number] [place] [address]- [address] Jun, [facility] [place] [facility] [address] [id number] [place] [address]- [address] Jun, [facility] [place] [facility] [address] [id number] [place] [address]- [address] Jun, [facility] [place] [facility] [address] [id number] [place] [address]- [address] Jun, [facility] [place] [facility] [address] [id number] [place] [address]- [address] Jun, [facility] [place] [facility] [address] [id number] [place] [address]- [address] Jun, [facility] [place] [facility] [address] [id number] [place] [address]- [address]73 Jun, [facility] [place] [facility] [address] [id number] [place] [address]- [address] 21 Jun, 2014 [facility] [place] [facility] [address] [id number] [place] [address]- [address] 21 Jun, 2014 [facility] [place] [facility] [address] [id number] [place] [address]- [address] 20 Jun, 2014 [facility] [place] [facility] [address] [id number] [place] [address]- [address] 20 Jun, 2014 [facility] [place] [facility] [address] [id number] [place] [address] 20 Jun, 2014 [facility] [place] [facility] [address] [id number] [place] [address]- [address] 20 Jun, 2014 [facility] [place] [facility] [address] [id number] [place] [address]- [address] 19 Jun, 2014 [facility] [place] [facility] [address] [id number] [place] [address]- [address]68 19 Jun, 2014 [facility] [place] [facility] [address] [id number] [place] [address] 18 Jun, 2014 [facility] [place] [facility] [address] [id number] [place] [address]- 7594 18 Jun, 2014 [facility] [place] [facility] [address] [id number] [place] [address] 3812 17 Jun, 2014 [facility] [place] [facility] [address] [id number] [place] [address]- 7329 17 Jun, 2014 [facility] [place] [facility] [address] [id number] [place] [address]- 4701 16 Jun, 2014 [facility] [place] [facility] [address] [id number] [place] [address]- 9071 16 Jun, 2014 [facility] [place] [facility] [address] [id number] [place] [address]- 4729 16 Jun, 2014 [facility] [place] [facility] [address] [id number] [place] [address]- 1383 Jun, [facility] [place] [facility] [address] [id number] [place] [address]- 3539 16 Jun, 2014 [facility] [place] [facility] [address] [id number] [place] [address]- 6619 16 Jun, 2014 [facility] [place] [facility] [address] [id number] [place] [address]- 1469 Jun, [facility] [place] [facility] [address] [id number] [place] [address]- 7895 Jun, [facility] [place] [facility] [address] [id number] [place] [address]- 1127 Jun, [facility] [place] [facility] [address] [id number] [place] [address]- 1775 Jun, [facility] [place] [facility] [address] [id number] [place] [address]- 3971 Jun, [facility] [place] [facility] [address] [id number] [place] [address]- 9585 Jun, [facility] [place] [facility] [address] [id number] [place] [address]- 8139 Jun, [facility] [place] [facility] [address] [id number] [place] [address]- 0419 Jun, [facility] [place] [facility] [address] [id number] [place] [address]- 0910 Jun, [facility] [place] [facility] [address] [id number] [place] [address]- 2328 Jun, [facility] [place] [facility] [address] [id number] [place] [address]- 2561 Jun, [facility] [place] [facility] [address] [id number] [place] [address]- 4074 Jun, 2014 [facility] [place] [facility] [address] [id number] [place] [address]- 5464 Jun, 2014 [facility] [place] [facility] [address] [id number] [place] [address]- 9809 Jun, 2014 [facility] [place] [facility] [address] [id number] [place] [address]- 4886 Jun, [facility] [place] [facility] [address] [id number] [place] [address]- 4638 Jun, 2014 [facility] [place] [facility] [address] [id number] [place] [address]- 5707 Jun, 2014 [facility] [place] [facility] [address] [facility] [id number] [place] [address]- 7740 Jun, [facility] [place] [facility] [address] [id number] [place] [address]- 6741 Jun, [facility] [place] [facility] [address] [facility] [id number] [place] [address]- 0062 Jun, [facility] [place] [facility] [address] [facility] [id number] [place] [address]- 3687 May, 2014 [facility] [place] [facility] [address] [facility] [id number] [place] [address]- 8913 May, 2014 [facility] [place] [facility] [address] [facility] [id number] [place] [address]- 2842 May, 2014 [facility] [place] [facility] [address] [facility] [id number] [place] [address]- 7057 May, 2014 [facility] [place] [facility] [address] [facility] [id number], [place] [address]- 9264 May, 2014 [facility] [place] [facility] [address] [facility] [id number] [place] [address]- 8806 May, 2014 [facility] [place] [facility] [address] [facility] [id number] [place] [address]- 2519 May, 2014 [facility] [place] [facility] [address] [facility] [id number] [place] [address]- 5357 May, 2014 [facility] [place] [facility] [address] [id number], [place] [address] 20 May, 2014 [facility] [place] [facility] [address] [id number] [place] [address]- 2346 20 May, 2014 [facility] [place] [facility] [address] [facility] [id number] [place] [address]- 1336 18 May, 2014 [facility] [place] [facility] [address] [facility] [id number] [place] [address]- 7877 18 May, 2014 [facility] [place] [facility] [address] [facility] [id number] [place] [address]- 3948 13 May, 2014 [facility] [place] [facility] [address] [facility] [id number] [place] [address]- 4231 13 May, 2014 [facility] [place] [facility] [address] [id number] [place] [address] 6603 11 May, 2014 [facility] [place] [facility] [address] [id number] [place] [address]- 3238 11 May, 2014 [facility] [place] [facility] [address] [facility] [id number] [place] [address]- 5143 11 May, 2014 [facility] [place] [facility] [address] [id number] [place] [address] 1863 May, 2014 [facility] [place] [facility] [address] [id number], [place] [address] 8407 09 May, 2014 [facility] [place] [facility] [address] [facility] [id number] [place] [address]- 2545 May, 2014 [facility] [place] [facility] [address] [facility] [id number], [place] [address]- 2549 05 May, 2014 [facility] [place] [facility] [address] [facility] [id number] [place] [address]- 7474 May, 2014 [facility] [place] [facility] [address] [facility] [id number], [place] [address]- 2547 05 May, 2014 [facility] [place] [facility] [address] [facility] [id number], [place] [address]- 8803 May, [facility] [place] [facility] [address] [id number] [place] [address]- 3197 May, [facility] [place] [facility] [address] [id number] [place] [address] May, [facility] [place] [facility] [address] [id number] [place] [address]- 2081 May, [facility] [place] [facility] [address] [id number] [place] [address]- 9633 Apr, [facility] [place] [facility] [address] [id number] [place] [address]- 1076 Apr, [facility] [place] [facility] [address] [id number] [place] [address]- 1812 Apr, [facility] [place] [facility] [address] [id number] [place] [address]- 5002 Apr, [facility] [place] [facility] [address] [id number], [place] [address]- 7808 Apr, [facility] [place] [facility] [address] [id number], [place] [address]- 2153 Apr, [facility] [place] [facility] [address] [id number], [place] [address]- 8282 Apr, [facility] [place] [facility] [address] [id number], [place] [address]- 9117 Apr, [facility] [place] [facility] [address] [id number], [place] [address]- 2687 Apr, [facility] [place] [facility] [address] [id number], [place] [address]- 6820 Apr, [facility] [place] [facility] [address] [id number], [place] [address]- 5965 Apr, [facility] [place] [facility] [address] [id number], [place] [address]- 5353 Apr, [facility] [place] [facility] [address] [id number] [place] [address]- 0832 Apr, [facility] [address] [id number] [place] [address]- 6687 Apr, [facility] [address] [id number] [place] [address]- 1603 Apr, [facility] [address] [id number] [place] [address]- 0924 Apr, [facility] [address] [id number] [place] [address]- 9449 Apr, [facility] [address] [id number] [place] [address]- 8010 Apr, [facility] [address] [id number] [place] [address]- 6655 Apr, [facility] [address] [id number] [place] [address]- 3278 Apr, [facility] [address] [id number] [place] [address]- 6748 Mar, [facility] [address] [id number] [place] [address]- 6770 Mar, [facility] [address] [id number] [place] [address]- 4986 Mar, [facility] [address] [id number] [place] [address]- 8048 Mar, [facility] [address] [id number] [place] [address]- 8125 Mar, [facility] [place] [facility] [address] [id number] [place] [address]- 0476 Mar, [facility] [address] [id number] [place] [address]- 5466 Mar, [facility] [place] [facility] [address] [id number] [id number] [address] Mar, [facility] [place] [facility] [address] [id number] [place] [address]- 5277 15 Mar, 2014 [facility] [place] [facility] [address] [id number] [place] [address]- 2333 Mar, [facility] [place] [facility] [address] [id number] [place] [address]- 4589 Mar, [facility] [place] [facility] [address] [id number] [place] [address]- 1990 Mar, [facility] [place] [facility] [address] [id number] [place] [address]- 7447 Mar, [facility] [place] [facility] [address] [id number] [place] [address]- 4108 Mar, [facility] [place] [facility] [address] [id number] [place] [address]- 0027 Mar, [facility] [place] [facility] [address] [id number] [place] [address]- 9536 Mar, [facility] [place] [facility] [address] [id number] [place] [address]- 5525 Feb, [facility] [place] [facility] [address] [id number] [place] [address]- 7191 Feb, [facility] [place] [facility] [address] [id number] [place] [address]- 0856 Feb, [facility] [place] [facility] [address] [id number] [place] [address]- 6850 Feb, [facility] [place] [facility] [address] [id number] [place] [address]- 2965 Feb, [facility] [place] [facility] [address] [id number] [place] [address]- 1171 Feb, [facility] [place] [facility] [address] [id number] [place] [address]- 1963 Feb, [facility] [place] [facility] [address] [id number] [place] [address]- 2620 18 Feb, 2014 [facility] [place] [facility] [address] [id number] [place] [address]- 3445 18 Feb, 2014 [facility] [place] [facility] [address] [id number] [place] [address]- 9649 17 Feb, 2014 [facility] [place] [facility] [address] [id number] [place] [address]- 7965 17 Feb, 2014 [facility] [place] [facility] [address] [id number] [place] [address]- 8648 17 Feb, 2014 [facility] [place] [facility] [address] [id number] [place] [address]- 5385 17 Feb, 2014 [facility] [place] [facility] [address] [id number] [place] [address]- 6471 14 Feb, 2014 [facility] [place] [facility] [address] [id number] [place] [address]- 4984 14 Feb, 2014 [facility] [place] [facility] [address] [id number] [place] [address]- 8546 14 Feb, 2014 [facility] [place] [facility] [address] [id number] [place] [address]- 7339 14 Feb, 2014 [facility] [place] [facility] [address] [id number] [place] [address]- 0215 Feb, [facility] [place] [facility] [address] [id number] [place] [address]- 6477 Feb, [facility] [place] [facility] [address] [id number], [place] [address]- 8633 Feb, [facility] [place] [facility] [address] [id number] [place] [address]- 1334 Feb, [facility] [place] [facility] [address] [id number] [place] [address]- 6539 Jan, [facility] [place] [facility] [address] [id number] [place] [address]- 1780 Jan, [facility] [place] [facility] [address] [id number] [place] [address]- 1053 30 Jan, 2013 [facility] [place] [facility] [address] [id number] [place] [address]- 9123 30 Jan, 2014 [facility] [place] [facility] [address] [id number] [place] [address]- 4317 24 Jan, 2014 [facility] [place] [facility] [address] [id number] [place] [address]- 0023 24 Jan, 2014 [facility] [place] [facility] [address] [id number] [place] [address]- 4416 Jan, [facility] [place] [facility] [address] [id number] [place] [address]- 0598 Jan, [facility] [place] [facility] [address] [id number] [place] [address]- 6606 Jan, [facility] [place] [facility] [address] [id number] [place] [address]- 1491 Jan, [facility] [place] [facility] [address] [id number] [place] [address]- 2994 17 Jan, 2014 [facility] [place] [facility] [address] [id number] [place] [address]- 9130 17 Jan, 2013 [facility] [place] [facility] [address] [id number] [place] [address]- 1867 17 Jan, 2014 [facility] [place] [facility] [address] [id number] [place] [address]- 6478 17 Jan, 2013 [facility] [place] [facility] [address] [id number] [place] [address]- 5960 15 Jan, 2014 [facility] [place] [facility] [address] [id number] [place] [address]- 8755 15 Jan, 2013 [facility] [place] [facility] [address] [id number] [place] [address]- 7401 14 Jan, 2014 [facility] [place] [facility] [address] [id number] [place] [address]- 4478 14 Jan, 2014 [facility] [place] [facility] [address] [id number] [place] [address]- 1637 13 Jan, 2014 [facility] [place] [facility] [address] [id number] [place] [address]- 7551 13 Jan, 2014 [facility] [place] [facility] [address] [id number] [place] [address]- 2038 Jan, [facility] [place] [facility] [address] [id number] [place] [address]- 9210 Jan, [facility] [place] [facility] [address] [id number] [place] [address]- 8850 Jan, [facility] [place] [facility] [address] [id number] [place] [address]- 3026 Jan, [facility] [place] [facility] [address] [id number] [place] [address]- 7958 Jan, [facility] [place] [facility] [address] [id number], [place] [address]- 4541 25 Dec, 2013 [facility] [place] [facility] [address] [id number] [place] [address]- 0069 25 Dec, 2013 [facility] [place] [facility] [address] [id number], [place] [address]- 8528 23 Dec, 2013 [facility] [place] [facility] [address] [id number], [place] [address]- 1484 23 Sep, 2013 [facility] [place] [facility] [address] [id number], [place] [address]- 2543 19 Sep, 2013 [facility] [place] [facility] [address] [id number] [place] [address]- 2545 19 Dec, 2013 [facility] [place] [facility] [address] [id number], [place] [address]- 6403 17 Dec, 2013 [facility] [place] [facility] [address] [id number], [place] [address]- 2549 17 Dec, 2013 [facility] [place] [facility] [address] [id number] [place] [address]- 9781 09 Sep, 2013 [facility] [place] [facility] [address] [id number] [place] [address] 2546 09 Sep, 2013 [facility] [place] [facility] [address] [id number] [place] [address] 2546 08 Dec, 2013 [facility] [place] [facility] [address] [id number] [place] [address] 2549 08 Sep, 2013 [facility] [place] [facility] [address] [id number] [place] [address] 2541 Sep, 2013 [facility] [place] [facility] [address] [id number] [place] [address]- 9726 04 Dec, 2013 [facility] [place] [facility] [address] [id number] [place] [address]- 1735 Dec, 2013 [facility] [place] [facility] [address] [id number] [place] [address]- 0303 Dec, 2013 [facility] [place] [facility] [address] [id number] [place] [address]- 3607 Dec, 2013 [facility] [place] [facility] [address] [id number] [place] [address]- 3746 Dec, 2013 [facility] [place] [facility] [address] [id number] [place] [address]- 1749 Nov, [facility] [place] [facility] [address] [id number] [place] [address]- 2544 Nov, [facility] [place] [facility] [address] [id number] [place] [address]- 2549 Nov, [facility] [place] [facility] [address] [id number] [place] [address]- 9020 Nov, [facility] [place] [facility] [address] [id number] [place] [address]- 4710 Nov, [facility] [place] [facility] [address] [id number] [place] [address]- 7907 Nov, [facility] [place] [facility] [address] [id number] [place] [address]- 4390 Nov, [facility] [place] [facility] [address] [id number] [place] [address]- 8677 Nov, [facility] [place] [facility] [address] [id number] [place] [address]- 9846 Nov, [facility] [place] [facility] [address] [id number] [place] [address]- 8850 Nov, [facility] [place] [facility] [address] [id number] [place] [address]- 1321 Nov, [facility] [place] [facility] [address] [id number] [place] [address]- 1775 Nov, [facility] [place] [facility] [address] [id number] [place] [address]- 6263 Oct, [facility] [place] [facility] [address] [id number] [place] [address]- 4826 Oct, [facility] [place] [facility] [address] [id number] [place] [address]- 0726 Oct, [facility] [place] [facility] [address] [id number] [place] [address]- 9177 Oct, [facility] [place] [facility] [address] [id number] [place] [address]- 7581 Oct, [facility] [place] [facility] [address] [id number] [place] [address]- 9520 Oct, [facility] [place] [facility] [address] [id number] [place] [address]- 9145 Oct, [facility] [place] [facility] [address] [id number] [place] [address]- 3835 Oct, [facility] [place] [facility] [address] [id number] [place] [address]- 5346 Oct, [facility] [place] [facility] [address] [id number] [place] [address]- 6228 22 Oct, 2013 [facility] [place] [facility] [address] [id number] [place] [address]- 3262 16 Oct, 2013 [facility] [place] [facility] [address] [id number] [place] [address]- 2418 16 Oct, 2013 [facility] [place] [facility] [address] [id number] [place] [address]- 6612 14 Oct, 2013 [facility] [place] [facility] [address] [id number] [place] [address]- 0091 14 Oct, 2013 [facility] [place] [facility] [address] [id number] [place] [address]- 8292 Oct, [facility] [place] [facility] [address] [id number] [place] [address]- 7289 Oct, [facility] [place] [facility] [address] [id number] [place] [address]- 8724 Oct, [facility] [place] [facility] [address] [id number] [place] [address]- 5552 27 Sep, 2013 [facility] [place] [facility] [address] [id number] [place] [address] 27 Sep, 2013 [facility] [place] [facility] [address] [id number] [place] [address] Sep, [facility] [place] [facility] [address] [id number] [place] [address] Sep, [facility] [place] [facility] [address] [id number] [place] [address] 18 Sep, 2013 [facility] [place] [facility] [address] [id number] [place] [address] 18 Sep, 2013 [facility] [place] [facility] [address] [id number] [place] [address] 17 Sep, 2013 [facility] [place] [facility] [address] [id number] [place] [address] 17 Sep, 2013 [facility] [place] [facility] [address] [id number] [place] [address] Sep, [facility] [place] [facility] [address] [id number] [place] [address] Sep, [facility] [place] [facility] [address] [id number] [place] [address] 133[address] Sep, [facility] [place] [facility] [address] [id number] [place] [address] 39[address] Sep, [facility] [place] [facility] [address] [id number] [place] [address] Sep, [facility] [place] [facility] [address] [id number] [place] [address] Sep, [facility] [place] [facility] [address] [id number] [place] [address] 9216 Sep, [facility] [place] [facility] [address] [id number] [place] [address]204 Sep, [facility] [place] [facility] [address] [id number] [place] [address] Sep, [facility] [place] [facility] [address] [id number] [place] [address] Sep, [facility] [place] [facility] [address] [id number] [place] [address]- 7060 Sep, [facility] [place] [facility] [address] [id number] [place] [address]- 4118 Sep, [facility] [place] [facility] [address] [id number] [place] [address]- [address] Sep, [facility] [place] [facility] [address] [id number] [place] [address] Sep, [facility] [place] [facility] [address] [id number] [place] [address] August, [facility] [place] [facility] [address] [id number] [place] [address]- [address] August, [facility] [place] [facility] [address] [id number] [place] [address] August, [facility] [place] [facility] [address] [id number] [place] [address]- [address] August, [facility] [place] [facility] [address] [id number] [place] [address] August, [facility] [place] [facility] [address] [id number] [place] [address] 1427 August, [facility] [place] [facility] [address] [id number] [place] [address]- [address] August, [facility] [place] [facility] [address] [id number] [place] [address]108 August, [facility] [place] [facility] [address] [id number] [place] [address]- 74[address] August, [facility] [place] [facility] [address] [id number] [place] [address]248 August, [facility] [place] [facility] [address] [id number] [place] [address]- [address]187 August, [facility] [place] [facility] [address] [id number] [place] [address] 27[address] Jul, [facility] [place] [facility] [address] [id number] [place] [address]756 Jul, [facility] [place] [facility] [address] [id number] [place] [address]- 2735 Jul, [facility] [place] [facility] [address] [id number] [place] [address]- 2831 Jul, [facility] [place] [facility] [address] [id number] [place] [address] 58[address] Jul, [facility] [place] [facility] [address] [id number] [place] [address] 69[address] Jul, [facility] [place] [facility] [address] [id number] [place] [address]- 64[address] Jul, [facility] [place] [facility] [address] [id number] [place] [address]- [address]237 Jul, [facility] [place] [facility] [address] [id number] [place] [address]- [address]103 18 Jul, 2013 [facility] [place] [facility] [address] [id number] [place] [address]- 4520 18 Jul, 2013 [facility] [place] [facility] [address] [id number] [place] [address]- 8570 16 Jul, 2013 [facility] [place] [facility] [address] [id number] [place] [address]- 0114 Jul, [facility] [place] [facility] [address] [id number] [place] [address]- 0349 Jul, [facility] [place] [facility] [address] [id number] [place] [address]- 5730 Jul, [facility] [place] [facility] [address] [id number] [place] [address]- 0591 Jul, [facility] [place] [facility] [address] [id number] [place] [address]- 0975 Jul, [facility] [place] [facility] [address] [id number] [place] [address]- 1751 Jul, [facility] [place] [facility] [address] [id number] [place] [address]- 0132 Jul, [facility] [place] [facility] [address] [id number] [place] [address]- 5995 Jul, [facility] [place] [facility] [address] [id number] [place] [address]- 1814 Jul, [facility] [place] [facility] [address] [id number] [place] [address]- 2541 Jul, [facility] [place] [facility] [address] [id number] [place] [address]- 2291 Jul, [facility] [place] [facility] [address] [id number] [place] [address]- 4146 Jul, [facility] [place] [facility] [address] [id number] [place] [address]- 9002 Jun, [facility] [place] [facility] [address] [id number] [place] [address]- 9842 Jun, [facility] [place] [facility] [address] [id number] [place] [address]- 5787 Jun, [facility] [place] [facility] [address] [id number] [place] [address]- [address]276 Jun, [facility] [place] [facility] [address] [id number] [place] [address]- 9674 Jun, [facility] [place] [facility] [address] [id number] [place] [address]- 4992 Jun, [facility] [place] [facility] [address] [id number] [place] [address]- 9098 Jun, [facility] [place] [facility] [address] [id number] [place] [address]- 7305 Jun, [facility] [place] [facility] [address] [id number] [place] [address]- 3666 Jun, [facility] [place] [facility] [address] [id number] [place] [address] 1941 Jun, [facility] [place] [facility] [address] [id number] [place] [address]- 2996 Jun, [facility] [place] [facility] [address] [id number] [place] [address]- 5412 Jun, [facility] [place] [facility] [address] [id number] [place] [address]- 8846 May, [facility] [place] [facility] [address] [id number] [place] [address]- 3210 May, [facility] [place] [facility] [address] [id number] [place] [address]- 9780 Apr, [facility] [place] [facility] [address] [id number] [place] [address]- 9588 Apr, [facility] [place] [facility] [address] [id number] [place] [address]- 5456 Apr, [facility] [place] [facility] [address] [id number] [place] [address]- 8218 Apr, [facility] [facility] [address] [id number] [place] [address] Apr, [facility] [place] [facility] [address] [id number] [place] [address] Apr, [facility] [place] [facility] [address] [id number] [place] [address] 1883 Apr, [facility] [place] [facility] [address] [id number] [place] [address] 69[address] Apr, [facility] [place] [facility] [address] [id number] [place] [address] 0367 Apr, [facility] [place] [facility] [address] [id number] [place] [address]- 0674 Apr, [facility] [place] [facility] [address] [id number] [place] [address] 74[address] Apr, [facility] [place] [facility] [address] [id number] [place] [address] 7835 16 Mar, 2013 [facility] [facility] [address] [id number] [place] [address] 8268 Mar, [facility] [place] [address] [id number] [place] [address] 5[address] Mar, [facility] [place] [facility] [address] [id number] [place] [address] 8312 Mar, [facility] [facility] [address] [id number] [place] [address]- 0797 Feb, [facility] [place] [facility] [address] [id number] [place] [address] 0[address] Feb, [facility] [address] [id number] [place] [address] 2392 Feb, [facility] [address] [id number] [place] [address] 8002 Feb, [facility] [address] [id number] [place] [address] 1924 Feb, [facility] [address] [id number] [place] [address]- 4721 Feb, [facility] [address] [id number] [place] [address]- 9177 Feb, [facility] [address] [id number] [place] [address]- 2035 Feb, [facility] [address] [id number] [place] [address]- 1987 Feb, [facility] [address] [id number] [place] [address]- 8697 Feb, [facility] [address] [id number] [place] [address]- 8113 Feb, [facility] [address] [facility] [id number] [place] [address]- 8065 Jan, [facility] [address] [id number] [place] [address]- 1562 Jan, [facility] [address] [id number], [place] [address]- 8[address] Jan, [facility] [address] [id number] [place] [address]- 5612 Jan, [facility] [address] [facility] [id number] [place] [address]- 1610 Jan, [facility] [address] [id number] [place] [address]- 2499 Jan, [facility] [address] [id number] [place] [address]- 5785 03 Jan, 2013 [facility] [address] [id number] [place] [address]- 3066 02 Jan, 2013 [facility] [address] [id number] [place] [address]- 7725 30 Dec, 2012 [facility] [address] [id number] [place] [address]- 7226 25 Dec, 2012 [facility] [address] [id number] [place] [address]- 3440 18 Dec, 2012 [facility] [address] [id number] [place] [address]- 9936 17 Dec, 2012 [facility] [address] [id number] [place] [address]- 1787 17 Dec, 2012 [facility] [address] [id number] [place] [address]- 4321 16 Dec, 2012 [facility] [address] [id number] [place] [address]- 0369 13 Dec, 2012 [facility] [address] [id number], [place] [address]- 5[address] 11 Dec, 2012 [facility] [address] [id number] [place] [address]- 6348 05 Dec, 2012 [facility] [address] [id number], [place] [address]- 6218 04 Dec, 2012 [facility] [address] [id number] [place] [address]- 3915 30 Nov, 2012 [facility] [address] [id number] [place] [address]- 2809 Nov, [facility] [address] [id number], [place] [address] 59[address] Nov, [facility] [address] [id number], [place] [address]- 1648 16 Nov, 2012 [facility] [address] [id number] [place] [address]- 1027 14 Nov, 2012 [facility] [address] [id number] [place] [address]- 8539 Nov, [facility] [address] [id number] [place] [address]- 2533 05 Nov, 2012 [facility] [address] [id number] [place] [address]- 9331 29 Oct, 2012 [facility] [address] [id number] [place] [address]- 5361 Oct, [facility] [address] [id number] [place] [address]- 5051 Oct, [facility] [address] [id number] [place] [address]- 6184 Oct, [facility] [address] [id number] [place] [address]- 2354 15 Oct, 2012 [facility] [address] [id number] [place] [address]- 4586 Oct, [facility] [address] [id number] [place] [address]- 0481 Sep, [facility] [address] [id number] [place] [address]- 4435 28 Sep, 2012 [facility] [address] [id number] [place] [address]- 8857 27 Sep, 2012 [facility] [address] [id number] [place] [address]- 0936 14 Sep, 2012 [facility] [address] [id number] [place] [address]- 4857 13 Sep, 2012 [facility] [address] [id number] [place] [address]- 9624 10 Sep, 2012 [facility] [address] [id number] [place] [address]- 5656 Sep, [facility] [address] [id number] [place] [address]- 9986 Sep, [facility] [address] [id number] [place] [address]- 1186 Sep, [facility] [address] [id number] [place] [address]- 3909 August, [facility] [address] [id number] [place] [address]- 3472 August, [facility] [address] [id number] [place] [address]- 5504 August, [facility] [address] [id number] [place] [address]- 4385 August, [facility] [address] [id number] [place] [address]- 6847 August, [facility] [address] [id number] [place] [address]- 9389 August, [facility] [address] [id number] [place] [address]- 0826 August, [facility] [address] [id number] [place] [address]- 9412 August, [facility] [address] [id number] [place] [address]- 5729 Jul, [facility] [address] [id number] [place] [address]- 7603 Jul, [facility] [address] [place] [id number] Jul [facility] [address] [id number] [place] [address]- 1246 Jun, [facility] [address] [id number] [place] [address]- 7207 Jun, [facility] [address] [id number] [place] [address]- 8631 Jun, [facility] [address] [id number] [place] [address]- 5068 Jun, [facility] [address] [id number] [place] [address]- 1342 Jun, [facility] [address] [id number] [place] [address]- 7257 Jun, [facility] [address] [id number] [place] [address]- 5570 May, [facility] [address] [id number] [place] [address]- 6531 May, [facility] [address] [id number] [place] [address]- 3457 May, [facility] [address] [id number] [place] [address]- 0347 May, [facility] [address] [id number] [place] [address]- 2545 May, [facility] [address] [id number] [place] [address]- 0632 Apr, [facility] [address] [id number] [place] [address]- 6053 Apr, [facility] [address] [id number] [place] [address]- 6693 Apr, [facility] [address] [id number] [place] [address]- 5304 Apr, [facility] [address] [id number] [place] [address]- 1803 Apr, [facility] [address] [id number] [place] [address]- 8402 Apr, [facility] [address] [id number], [place] [address]- 4765 26 Mar, 2012 [facility] [address] [id number] [place] [address]- 3916 20 Mar, 2012 [facility] [address] [id number] [place] [address]- 4106 Mar, [facility] [address] [facility] [id number] [place] [address]- 9316 Mar, [facility] [address] [id number] [place] [address]- 1791 19 Mar, 2012 [facility] [address] [id number] [place] [address]- 8768 18 Mar, 2012 [facility] [address] [id number] [place] [address]- 6523 18 Mar, 2012 [facility] [id number] [place] [address]- 3606 Mar, [facility] [address] [id number] [place] [address]- 8831 Mar, [facility] [address] [id number] [place] [address]- 9989 05 Mar, 2012 [facility] [address] [id number] [place] [address]- 6046 05 Mar, 2012 [facility] [address] [id number] [place] [address]- 3191 Feb, [facility] [address] [id number] [place] [address]- 1972 Feb, [facility] [address] [id number] [place] [address]- 5617 Feb, [facility] [address] [facility] [id number] [place] [address]- 1216 Feb, [facility] [address] [id number] [place] [address]- 7446 Feb, [facility] [address] [id number] [place] [address] 2542 16 Feb, 2012 [facility] [address] [id number] [place] [address]- 4384 16 Feb, 2012 [facility] [address] [id number] [place] [address]- 2546 Feb, [facility] [address] [id number] [place] [address] 2546 Feb, [facility] [address] [id number] [place] [address]- 6396 Feb, [facility] [address] [id number] [place] [address]- 5087 Feb, [facility] [address] [id number] [place] [address]- 7879 Jan, [facility] [address] [id number] [place] [address] Jan, [facility] [address] [id number] [place] [address]- 6710 Jan, [facility] [address] [id number] [place] [address]- 2414 Jan, [facility] [address] [facility] [id number] [place] [address]- 0344 Jan, [facility] [address] [id number] [place] [address]652 Jan, [facility] [address] [id number] [place] [address]- 6518 09 Jan, 2012 [facility] [address] [id number] [place] [address]- 9016 24 Dec, 2011 [facility] [address] [id number] [place] [address]- 2546 17 Sep2011 [facility] [address] [id number] [place] [address]- 1013 Dec, [facility] [address] [id number] [place] [address]- 7748 Dec, [facility] [address] [id number] [place] [address]- 8442 Nov, [facility] [address] [id number] [place] [address]- 6535 Nov, [facility] [address] [id number] [place] [address]- 6615 Nov, [facility] [address] [id number] [place] [address]- 4896 15 Nov, 2011 [facility] [address] [id number] [place] [address]- 9493 Nov, [facility] [address] [id number] [place] [address]- 9823 Nov, [facility] [address] [id number] [place] [address]- 7937 Nov, [facility] [address] [id number] [place] [address]- 2432 Nov, [facility] [address] [id number] [place] [address]- 4874 Nov, [facility] [address] [id number] [place] [address]- 3731 Nov, [facility] [address] [id number] [place] [address]- 6245 Nov, [facility] [address] [id number] [place] [address]- 5373 Nov, [facility] [address] [id number] [place] [address]- 4032 Nov, [facility] [address] [id number] [place] [address]- 2309 Oct, [facility] [facility] [address] [id number] [place] [address]- 9870 Oct, 2011 [facility] [facility] [address] [id number] [place] [address]- 0286 Oct, 2011 [facility] [facility] [address] [id number] [place] [address]- 4776 Oct, 2011 [facility] [address] [id number] [place] [address]- 6476 Oct, 2011 [facility] [address] [id number] [place] [address] 2546 Oct, [facility] [facility] [address] [id number] [place] [address]- 1584 Oct, [facility] [place] [facility] [address] [id number] [place] [address]- 8469 Oct, [facility] [place] [facility] [address] [id number] [place] [address]- 9866 Oct, [facility] [place] [facility] [address] [id number] [place] [address]- 4429 Sep, [facility] [place] [facility] [address] [id number] [place] [address]- 3439 Sep, [facility] [place] [facility] [address] [id number] [place] [address]- 8160 Sep, [facility] [place] [facility] [address] [id number] [place] [address]- 7669 Sep, [facility] [place] [facility] [address] [id number] [place] [address]- 2549 Sep, [facility] [place] [facility] [address] [id number] [place] [address]- 3215 Sep, [facility] [place] [facility] [address] [id number] [place] [address]- 2115 Sep, [facility] [place] [facility] [address] [id number] [place] [address]- 2383 Sep, [facility] [address] [id number] [address]- 5016 August, [facility] [id number], [place] [address]- 6906 August, [facility] [id number], [place] [address]- 9126 August, [facility] [id number], [place] [address]- 5526 August, [facility] [address]005[address], [place] [address]- 8570 August, [facility] [address]00565[address], [place] [address]- 2296 August, [facility] [id number], [place] [address]- 9924 August, [facility] [id number], [place] [address]- 5209 August, [facility] [id number], [place] [address]- 6551 August, [facility] [address], [place] [address]- 2756 August, [facility] [address] [id number], [place] [address]- 0796 August, [facility] [address] [id number], [place] [address]- 4516 August, [facility] [address] [id number], [place] [address]- 4642 Oct, IMMUNIZATIONS No Known Immunizations SOCIAL HISTORY Never Assessed REASON FOR VISIT Diarrhea and vomiting x 4 days aditi echevarria PLAN OF CARE Activity Details Follow Up 2 - 3 Days if not better Reason:nausea/diarrhea VITAL SIGNS Height 63 in 2017-10-17 Weight 397.5 lbs 2017-10-17 Temperature 98 degrees Fahrenheit 2017-10-17 Heart Rate 98 bpm 2017-10-17 Respiratory Rate 24 2017-10-17 BMI 70.41 kg/m2 2017-10-17 Blood pressure systolic 126 mmHg 2017-10-17 Blood pressure diastolic 72 mmHg 2017-10-17 MEDICATIONS Medication Instructions Dosage Frequency Start Date End Date Duration Status Montelukast Sodium 10 MG Orally Once a day 1 tablet in the evening 24h Not-Taking Nexium 40 mg Orally Once a day 1 capsule 24h 13 Jul, 2017 30 day(s) Active Cyclobenzaprine HCl 10 MG Orally Three times a day 1 tablet as needed 8h Not-Taking Zantac 150 MG Orally Once a day 1 tablet at bedtime 24h Active Zofran 4 MG Orally every 4 hrs 1 tablet as needed 4h Oct, 03 days Active Mirtazapine 30 MG Orally Once a day 1 tablet at bedtime 24h 30 Active Ondansetron HCl 4 MG Orally 3 times a day 1 tablet as needed 8h Not-Taking Lyrica 150 MG Orally twice a day 2 capsules 12h 30 days Active Guaifenesin 400 MG Orally every 4 hrs 1 tablet as needed 4h May, Not-Taking Benadryl Allergy 25 MG Orally 2 times a day 1 capsule 12h Active Cetirizine HCl 10 mg Orally Once a day 1 tablet 24h 90 Not-Taking Potassium Chloride Eugenia ER 10 MEQ Orally Once a day 1 tablet with food 24h Not-Taking Triamcinolone Acetonide 0.025 % Externally Twice a day 1 application to affected area as needed 12h Jul, Not-Taking Gemfibrozil 600 MG Orally Twice a day 1 tablet 12h Not-Taking Metformin HCl 1000 MG Orally Twice a day 1 tablet with meals 12h 30 days Active Chlorhexidine Gluconate 4 % Externally daily -avoid face, head, genitals as directed Jul, 7 Oct, 2017 10 days Not-Taking Sucralfate 1 GM Orally 4 times a day 1 tablet before meals and at bedtime 6h 30 days Active Atorvastatin Calcium 40 MG Orally Once a day 1 tablet 24h Not- Taking Lotrisone 1-0.05 % Externally Twice a day 1 application to affected area 12h Not-Taking Lasix 40 mg Orally Once a day 1 tablet 24h Active Loperamide HCl 2 MG Orally 2 times a day 1 capsule as needed 12h Oct, Oct, 03 days Active Clindamycin Phosphate 1 % Externally Twice a day 1 application to affected area 12h August, Not-Taking RESULTS No Results PROCEDURES Procedure Date Ordered Result Body Site URINALYSIS, AUTO, W/O SCOPE October 17, 2017 [facility] October [facility], 2017 INSTRUCTIONS MEDICATIONS ADMINISTERED No Known Medications [...] Hospitalization History suicidal ideations-[place] 12/28 Hospitalization History hypoxia--[facility] 02/13/2016 Hospitalization History shortness of breath at june 2016 Hospitalization History Shortness of breath at august 2016 Hospitalization History SOB, chest pain at 12/2016
--- OUTSIDE RECORDS SUMMARY | 2018-02-11 13:20 | XMS REPORT ---
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 [affective] disorder F39 [facility] [address], [place] [address]- 5477 Jun, Unspecified mood [affective] disorder F39 [facility] [address], [place] [address]- 6637 Jun, Unspecified mood [affective] disorder F39 [facility] [id number] [place] [address] 87535- 4981 Jun, Unspecified mood [affective] disorder F39 [facility] [address] [place] [address] 49757- 3855 Jun, [facility] [id number] [place] [address] 52910- 1404 Jun, Type 2 diabetes mellitus with hyperglycemia E11.65 ; Oxygen dependent Z99.81 ; Folliculitis L73.9 ; Dysuria R30.0 ; Encounter for contraceptive management Z30.9 and Dog bite W54.0XXA [facility] [address] [place] [address] 24287- 5469 Jun, Unspecified mood [affective] disorder F39 [facility] [address] [place] [address] 06482- 7479 Jun, Type 2 diabetes mellitus with hyperglycemia E11.65 [facility] [address] [place] [address] 41443- 0681 May, Unspecified mood [affective] disorder F39 [facility] [address], [place] [address]- 7957 May, [facility] [id number] [place] [address] 40993- 2578 May, [facility] [address], [place] [address]- 8451 May, [facility] [id number] [place] [address] 79899- 1960 Apr, [facility] [address], [place] [address]- 8274 Apr, Unspecified mood [affective] disorder F39 [facility] [address] [place] [address] 14017- 1365 Apr, [facility] [id number] [place] [address] 58746- 6622 Apr, [facility] [id number] [place] [address] 96102- 7054 Apr, [facility] [id number] [place] [address] 17528- 7041 Apr, Dysuria R30.0 and Well woman exam (no gynecological exam) Z00.00 [place] [id number] [place] [address] 72675- 2188 Mar, [facility] [id number] [place] [address] 31869- 3374 Mar, [facility] [address] [place] [address] [id number] Mar, Dental examination Z01.20 [place] [id number] [place] [address] 13197- 6645 Mar, Chronic diarrhea K52.9 ; Intractable vomiting with nausea, vomiting of unspecified type R11.2 ; Cellulitis, unspecified cellulitis site L03.90 ; Type 2 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 and Postinflammatory hyperpigmentation L81.0 [facility] [address] [place] [address] 84508- 9249 Mar, Unspecified mood [affective] disorder F39 [facility] [address] [place] [address] 33891- 7742 Mar, Unspecified mood [affective] disorder F39 [facility] [id number] [place] [address] 87598- 8720 Mar, [facility] [id number], [place] [address]- 8984 Mar, [facility] [address] [id number], [place] [address]- 3686 Mar, [facility] [address] [id number], [place] [address]- 0324 Mar, [facility] [id number] [place] [address] 20584- 4311 Mar, [facility] [address] [facility] [id number], [place] [address]- 3787 Mar, [facility] [id number] [place] [address] 24304- 8732 Feb, Unspecified mood [affective] disorder F39 [facility] [address] [place] [address] 64427- 6105 Feb, [facility] [address] [id number], [place] [address]- 5772 Feb, [facility] [address], [place] [address]- 5521 Jan, Unspecified mood [affective] disorder F39 [facility] [place] [facility] [address] [id number] [place] [id number] Jan, Encounter for dental examination Z01.20 [facility] [address], [place] [address]- 5675 Jan, [facility] [address] [id number], [place] [address]- 6121 Jan, [facility] [address], [place] [address]- 9211 Jan, [facility] [address] [id number], [place] [address]- 5096 Jan, [facility] [address], [place] [address]- 7009 Jan, [facility] [id number] [place] [address] 77881- 9958 08 Jan, 2015 Abdominal abscess K65.1 and Dental caries K02.9 [facility] [id number] [place] [address] 12810- 8753 Jan, [facility] [id number] [place] [address] 65330- 6891 30 Dec, 2014 Diabetes with neurological manifestations, type II or unspecified type, not stated as uncontrolled 250.60 ; Essential hypertension, benign 401.1 ; Concussion 850.9 and Skin texture changes 782.8 [facility] [address] 11042- 5086 Dec, [facility] [id number] [place] [address] 68576- 3257 24 Dec, 2014 [facility] [address] 84961- 3268 Dec, [facility] [id number] [place] [address] 19647- 7236 Dec, [facility] [id number] [place] [address] 80290- 7843 17 Dec, 2014 Affective disorder 296.90 [facility] [id number] [place] [address] 40741- 8775 14 Dec, 2014 [facility] [id number] [place] [address] 17769- 2545 10 Dec, 2014 Affective disorder 296.90 [facility] [id number] [place] [address] 15924- 2665 Dec, [facility] [id number] [place] [address] 77537- 6390 Dec, [facility] [id number] [place] [address] 58092- 4621 Dec, [facility] [address] [place] [address]- 7528 Dec, [facility] [address] [place] [address] 67165- 6781 Nov, Affective disorder 296.90 [facility] [address] [place] [address] 32150 2541 Nov, [facility] [id number] [place] [address] 93027- 7118 Nov, Affective disorder 296.90 [facility] [id number] [place] [address] 46797 2546 Nov, Diarrhea 787.91 [facility] [id number] [place] [address] 55347- 4916 Nov, [facility] [id number] [place] [address] 12272- 2806 Nov, Diarrhea 787.91 [facility] [id number] [place] [address] 91300 2548 Nov, Diarrhea 787.91 and Hyperlipidemia 272.4 [facility] [id number] [place] [address] 70746- 4722 Nov, Diarrhea 787.91 [facility] [address] [place] [address] 92066 254 Nov, Affective disorder 296.90 [facility] [address] [place] [address] 02538 2543 Nov, Affective disorder 296.90 [facility] [address], [place] [address]- 3457 Nov, Affective disorder 296.90 [facility] [address] [place] [address] 90190- 1991 Nov, [facility] [address] [place] [address] 20016- 8422 Nov, [facility] [address] [place] [address] 49887- 8206 Nov, [facility] [address], [place] [address]- 5856 Nov, Episodic mood disorder 296.90 [facility] [address], [place] [address]- 6423 Nov, [facility] [address] [place] [address] 88507- 0369 Nov, [facility] [address] [place] [address] 94349- 9491 Nov, [facility] [address] [place] [address] 88616- 4286 Nov, [facility] [address], [place] [address]- 5286 Nov, [facility] [address] [place] [address] 02861- 7288 Nov, Lymphedema 457.1 ; Hyperlipidemia 272.4 ; Essential hypertension, benign 401.1 and Numbness of toes 782.0 [facility] [address], [place] [address]- 9570 Nov, Episodic mood disorder 296.90 [facility] [address], [place] [address]- 8986 Oct, [facility] [address], [place] [address]- 6627 Oct, [facility] [address], [place] [address]- 0887 Oct, [facility] [address], [place] [address]- 5951 Oct, [facility] [address], [place] [address]- 4289 Oct, [facility] [address], [place] [address]- 0673 Oct, [facility] [address] [facility] [id number] [place] [address]- 0900 Oct, 2014 [facility] [address] [facility] [id number] [place] [address]- 9151 Oct, 2014 [facility] [address] [facility] [id number] [place] [address]- 0920 Oct, Episodic mood disorder 296.90 [facility] [address] [facility] [id number] [place] [address]- 7403 30 Sep, 2014 [facility] [address] [facility] [id number] [place] [address]- 0830 29 Sep, 2014 [facility] [address] [facility] [id number] [place] [address]- 1983 Sep, [facility] [address] [facility] [id number] [place] [address]- 4820 Sep, [facility] [address] [facility] [id number] [place] [address]- 9184 Sep, [facility] [address] [facility] [id number], [place] [address] Sep, Episodic mood disorder 296.90 [facility] [address] [facility] [id number] [place] [address] Sep, Unspecified episodic mood disorder 296.90 [facility] [address] [facility] [id number], [place] [address] 18 Sep, 2014 [facility] [address] [facility] [id number], [place] [address] 18 Sep, 2014 [facility] [address] [facility] [id number] [place] [address] 16 Sep, 2014 Episodic mood disorder 296.90 [facility] [address] [facility] [id number], [place] [address] 15 Sep, 2014 [facility] [address] [id number], [place] [address] Sep, [facility] [id number], [place] [address] Sep, [facility] [id number] [place] [address] Sep, Hematemesis 578.0 and Vomiting 787.03 [facility] [id number] [place] [address] Sep, Episodic mood disorder 296.90 [facility] [id number], [place] [address] Sep, [facility] [id number] [place] [address] Sep, [facility] [id number], [place] [address] Sep, Diabetes mellitus without mention of complication, type II or unspecified type, not stated as uncontrolled 250.00 and Other chronic pain 338.29 [facility] [id number], [place] [address] Sep, Episodic mood disorder 296.90 [facility] [id number] [place] [address] Sep, [facility] [id number], [place] [address] Sep, Episodic mood disorder 296.90 [facility] [id number], [place] [address] Sep, [facility] [id number], [place] [address] August, [facility] [id number], [place] [address] August, [facility] [address] [id number], [place] [address] August, Episodic mood disorder 296.90 [facility] [id number] [place] [address] August, [facility] [address] [facility] [id number], [place] [address] August, Unspecified episodic mood disorder 296.90 [facility] [address] [facility] [id number] [place] [address] August, Vomiting 787.03 [facility] [address] [facility] [id number] [place] [address] August, [facility] [address] [facility] [id number] [place] [address] August, [facility] [address] [facility] [id number] [place] [address] August, [facility] [address] [id number] [place] [address] August, [facility] [address] [id number], [place] [address] August, [facility] [address] [id number] [place] [address] 68[address] Jul, [facility] [address] [id number], [place] [address] Jul, [facility] [address] [id number], [place] [address] Jul, [facility] [address] [id number], [place] [address] Jun, [facility] [address] [facility] [id number] [place] [address]- 0090 Jun, [facility] [address] [facility] [id number], [place] [address] Jun, [facility] [place] [facility] [address] [facility] [id number], [place] [address] Jun, [facility] [address] [id number], [place] [address] 30 Jun, 2014 [facility] [place] [facility] [address] [id number] [place] [address]- 4[address] Jun, [facility] [place] [facility] [address] [id number] [place] [address]- 1479 Jun, [facility] [place] [facility] [address] [id number] [place] [address]- 1489 Jun, [facility] [place] [facility] [address] [id number] [place] [address]- 2772 Jun, [facility] [place] [facility] [address] [id number] [place] [address]- 3296 Jun, [facility] [place] [facility] [address] [id number] [place] [address]- 5736 Jun, [facility] [place] [facility] [address] [id number] [place] [address]- 0419 Jun, [facility] [place] [facility] [address] [id number] [place] [address]- 1784 Jun, [facility] [place] [facility] [address] [id number] [place] [address]- 0061 Jun, [facility] [place] [facility] [address] [id number] [place] [address]- 1907 Jun, [facility] [place] [facility] [address] [id number] [place] [address]- 1233 Jun, [facility] [place] [facility] [address] [id number] [place] [address]- 3808 Jun, [facility] [place] [facility] [address] [id number] [place] [address]- 4360 Jun, [facility] [place] [facility] [address] [id number] [place] [address]- 3541 Jun, [facility] [place] [facility] [address] [id number] [place] [address]- 8375 Jun, [facility] [place] [facility] [address] [id number] [place] [address]- 0451 21 Jun, 2014 [facility] [place] [facility] [address] [id number] [place] [address]- 5206 20 Jun, 2014 [facility] [place] [facility] [address] [id number] [place] [address]- 8486 20 Jun, 2014 [facility] [place] [facility] [address] [id number] [place] [address]- 4366 20 Jun, 2014 [facility] [place] [facility] [address] [id number] [place] [address]- 8630 20 Jun, 2014 [facility] [place] [facility] [address] [id number] [place] [address]- 4961 19 Jun, 2014 [facility] [place] [facility] [address] [id number] [place] [address]- 0323 19 Jun, 2014 [facility] [place] [facility] [address] [id number] [place] [address]- 0371 18 Jun, 2014 [facility] [place] [facility] [address] [id number] [place] [address]- 6736 18 Jun, 2014 [facility] [place] [facility] [address] [id number] [place] [address]- 2837 17 Jun, 2014 [facility] [place] [facility] [address] [id number] [place] [address]- 7477 17 Jun, 2014 [facility] [place] [facility] [address] [id number] [place] [address]- 5119 16 Jun, 2014 [facility] [place] [facility] [address] [id number] [place] [address]- 0630 16 Jun, 2014 [facility] [place] [facility] [address] [id number] [place] [address]- 2316 16 Jun, 2014 [facility] [place] [facility] [address] [id number] [place] [address]- 6966 16 Jun, 2014 [facility] [place] [facility] [address] [id number] [place] [address]- 6275 Jun, [facility] [place] [facility] [address] [id number] [place] [address]- 7281 16 Jun, 2014 [facility] [place] [facility] [address] [id number] [place] [address]- 0333 Jun, [facility] [place] [facility] [address] [id number] [place] [address]- 9560 Jun, [facility] [place] [facility] [address] [id number] [place] [address]- 0053 Jun, [facility] [place] [facility] [address] [id number] [place] [address]- 4743 Jun, [facility] [place] [facility] [address] [id number] [place] [address]- 1017 Jun, [facility] [place] [facility] [address] [id number] [place] [address]- 3261 Jun, 2014 [facility] [place] [facility] [address] [id number] [place] [address]- 5597 Jun, [facility] [place] [facility] [address] [id number] [place] [address]- 3004 Jun, [facility] [place] [facility] [address] [id number] [place] [address]- 5330 Jun, [facility] [place] [facility] [address] [id number], [place] [address]- 1102 Jun, [facility] [place] [facility] [address] [id number], [place] [address]- 9890 Jun, 2014 [facility] [place] [facility] [address] [id number] [place] [address]- 0509 Jun, [facility] [place] [facility] [address] [id number] [place] [address]- 4082 Jun, [facility] [place] [facility] [address] [id number] [place] [address]- 9795 Jun, [facility] [place] [facility] [address] [id number] [place] [address]- 5123 Jun, [facility] [place] [facility] [address] [id number] [place] [address]- 9995 Jun, [facility] [place] [facility] [address] [facility] [id number] [place] [address]- 0290 Jun, [facility] [place] [facility] [address] [facility] [id number] [place] [address]- 8104 Jun, [facility] [place] [facility] [address] [id number] [place] [address]- 4711 Jun, [facility] [place] [facility] [address] [id number] [place] [address]- 7371 Jun, [facility] [place] [facility] [address] [facility] [id number] [place] [address]- 8053 May, [facility] [place] [facility] [address] [facility] [id number] [place] [address]- 4356 May, 2014 [facility] [place] [facility] [address] [facility] [id number] [place] [address]- 5180 May, [facility] [place] [facility] [address] [id number] [place] [address]- 0065 May, [facility] [place] [facility] [address] [facility] [id number] [place] [address]- 7797 May, [facility] [place] [facility] [address] [facility] [id number] [place] [address]- 2318 May, 2014 [facility] [place] [facility] [address] [facility] [id number] [place] [address]- 2548 May, [facility] [place] [facility] [address] [facility] [id number] [place] [address]- 4247 May, 2014 [facility] [place] [facility] [address] [facility] [id number], [place] [address]- 2093 May, 2014 [facility] [place] [facility] [address] [facility] [id number], [place] [address]- 2347 May, 2014 [facility] [place] [facility] [address] [facility] [id number] [place] [address]- 6560 18 May, 2014 [facility] [place] [facility] [address] [facility] [id number] [place] [address]- 8006 18 May, 2014 [facility] [place] [facility] [address] [facility] [id number] [place] [address]- 6986 13 May, 2014 [facility] [place] [facility] [address] [facility] [id number] [place] [address]- 2542 13 May, 2014 [facility] [place] [facility] [address] [facility] [id number] [place] [address]- 1313 11 May, 2014 [facility] [place] [facility] [address] [id number] [place] [address]- 4569 May, 2014 [facility] [place] [facility] [address] [id number] [place] [address]- 1007 May, 2014 [facility] [place] [facility] [address] [facility] [id number] [place] [address]- 3144 May, 2014 [facility] [place] [facility] [address] [facility] [id number] [place] [address]- 2499 May, 2014 [facility] [place] [facility] [address] [facility] [id number] [place] [address]- 2474 May, 2014 [facility] [place] [facility] [address] [id number] [place] [address]- 2546 May, 2014 [facility] [place] [facility] [address] [facility] [id number], [place] [address]- 2542 May, 2014 [facility] [place] [facility] [address] [facility] [id number] [place] [address]- 8829 May, 2014 [facility] [place] [facility] [address] [facility] [id number], [place] [address]- 7593 05 May, 2014 [facility] [place] [facility] [id number] [place] [address]- 0494 May, [facility] [place] [facility] [address] [id number] [place] [address]- 7770 May, [facility] [place] [facility] [address] [id number] [place] [address]- 3220 May, [facility] [place] [facility] [address] [id number] [place] [address]- 0565 Apr, [facility] [place] [facility] [address] [id number] [place] [address]- 8168 Apr, [facility] [place] [facility] [address] [id number] [place] [address]- 7109 Apr, [facility] [place] [facility] [address] [id number] [place] [address]- 8741 Apr, [facility] [place] [facility] [address] [id number] [place] [address]- 9361 Apr, [facility] [place] [facility] [address] [id number] [place] [address]- 0068 Apr, [facility] [place] [facility] [address] [id number] [place] [address]- 7765 Apr, [facility] [place] [facility] [address] [id number] [place] [address]- 3535 Apr, [facility] [place] [facility] [address] [id number], [place] [address]- 8895 Apr, [facility] [place] [facility] [address] [id number], [place] [address]- 4313 Apr, [facility] [place] [facility] [address] [id number] [place] [address]- 7384 Apr, [facility] [place] [facility] [address] [id number], [place] [address]- 9259 Apr, [facility] [place] [facility] [address] [id number] [place] [address]- 0027 Apr, [facility] [place] [facility] [address] [id number] [place] [address]- 6965 Apr, [facility] [address] [id number] [place] [address]- 8562 Apr, [facility] [place] [facility] [address] [id number] [place] [address]- 1108 Apr, [facility] [place] [facility] [address] [id number] [place] [address]- 8510 Apr, [facility] [place] [facility] [address] [id number] [place] [address]- 8534 Apr, [facility] [place] [facility] [address] [id number] [place] [address]- 2378 Apr, [facility] [place] [facility] [address] [id number] [place] [address]- 9719 Apr, [facility] [address] [id number] [place] [address]- 4559 Mar, [facility] [place] [facility] [address] [id number] [place] [address]- 8605 Mar, [facility] [place] [facility] [address] [id number] [place] [address]- 7279 Mar, [facility] [place] [facility] [address] [id number] [place] [address]- 2202 Mar, [facility] [place] [facility] [address] [id number] [place] [address]- 5278 Mar, [facility] [place] [facility] [address] [id number] [place] [address]- 4668 Mar, [facility] [place] [facility] [address] [id number] [place] [address]- 0017 Mar, [facility] [place] [facility] [address] [id number] [place] [address]- 0403 18 Mar, 2014 [facility] [place] [facility] [address] [id number] [place] [address]75 15 Mar, 2014 [facility] [place] [facility] [address] [id number] [place] [address]- 8953 15 Mar, 2014 [facility] [place] [facility] [address] [id number] [place] [address]- 7892 Mar, [facility] [place] [facility] [address] [id number] [place] [address]- 3312 Mar, [facility] [place] [facility] [address] [id number] [place] [address]- 8163 Mar, [facility] [place] [facility] [address] [id number] [place] [address]- 9188 Mar, [facility] [place] [facility] [address] [id number] [place] [address]- 5176 Mar, [facility] [place] [facility] [address] [id number] [place] [address]- 1924 Mar, [facility] [place] [facility] [address] [id number] [place] [address]- 2475 Feb, [facility] [place] [facility] [address] [id number] [place] [address]- 1816 Feb, [facility] [place] [facility] [address] [id number] [place] [address]- 0251 Feb, [facility] [place] [facility] [address] [id number] [place] [address]- 9919 Feb, [facility] [place] [facility] [address] [id number] [place] [address]- 1221 Feb, [facility] [place] [facility] [address] [id number] [place] [address]- 9857 Feb, [facility] [place] [facility] [address] [id number] [place] [address]- 9642 Feb, [facility] [place] [facility] [address] [id number] [place] [address]- 4971 18 Feb, 2014 [facility] [place] [facility] [address] [id number], [place] [address]- 2783 18 Feb, 2014 [facility] [place] [facility] [address] [id number] [place] [address]- 2445 17 Feb, 2014 [facility] [place] [facility] [address] [id number] [place] [address]- 2764 17 Feb, 2014 [facility] [place] [facility] [address] [id number] [place] [address]- 1796 17 Feb, 2014 [facility] [place] [facility] [address] [id number] [place] [address]- 3332 17 Feb, 2014 [facility] [place] [facility] [address] [id number] [place] [address]- 3289 Feb, [facility] [place] [facility] [address] [id number] [place] [address]- 3127 Feb, [facility] [place] [facility] [address] [id number] [place] [address]- 6686 Feb, [facility] [place] [facility] [address] [id number] [place] [address]- 4417 Feb, [facility] [place] [facility] [address] [id number] [place] [address]- 4259 Feb, [facility] [place] [facility] [address] [id number] [place] [address]- 0427 Feb, [facility] [place] [facility] [address] [id number], [place] [address]- 5236 Feb, [facility] [place] [facility] [address] [id number], [place] [address]- 9090 Feb, [facility] [place] [facility] [address] [id number] [place] [address]- 1739 Jan, [facility] [place] [facility] [address] [id number] [place] [address]- 4788 Jan, [facility] [place] [facility] [address] [id number] [place] [address]- 0231 Jan, [facility] [place] [facility] [address] [id number] [place] [address]- 7397 30 Jan, 2013 [facility] [place] [facility] [address] [id number] [place] [address]- 8108 24 Jan, 2014 [facility] [place] [facility] [address] [id number] [place] [address]- 8323 24 Jan, 2014 [facility] [place] [facility] [address] [id number] [place] [address]- 1879 Jan, [facility] [place] [facility] [address] [id number] [place] [address]- 1890 21 Jan, 2014 [facility] [place] [facility] [address] [id number] [place] [address]- 3171 20 Jan, 2014 [facility] [place] [facility] [address] [id number] [place] [address]- 5960 20 Jan, 2014 [facility] [place] [facility] [address] [id number] [place] [address]- 3624 17 Jan, 2014 [facility] [place] [facility] [address] [id number] [place] [address]- 2136 17 Jan, 2014 [facility] [place] [facility] [address] [id number] [place] [address]- 7473 17 Jan, 2014 [facility] [place] [facility] [address] [id number] [place] [address]- 4238 17 Jan, 2014 [facility] [place] [facility] [address] [id number] [place] [address]- 3085 15 Jan, 2014 [facility] [place] [facility] [address] [id number] [place] [address]- 9964 15 Jan, 2014 [facility] [place] [facility] [address] [id number] [place] [address]- 6109 14 Jan, 2014 [facility] [place] [facility] [address] [id number] [place] [address]- 0495 14 Jan, 2013 [facility] [place] [facility] [address] [id number] [place] [address]- 9576 Jan, [facility] [place] [facility] [address] [id number] [place] [address] Jan, [facility] [place] [facility] [address] [id number] [place] [address] Jan, [facility] [place] [facility] [address] [id number] [place] [address] Jan, [facility] [place] [facility] [address] [id number] [place] [address] Jan, [facility] [place] [facility] [address] [id number] [place] [address] Jan, [facility] [place] [facility] [address] [id number] [place] [address] 114[address] Jan, [facility] [place] [facility] [address] [id number] [place] [address] 25 Dec, 2013 [facility] [place] [facility] [address] [id number], [place] [address] 25 Dec, 2013 [facility] [place] [facility] [address] [id number] [place] [address] 23 Dec, 2013 [facility] [place] [facility] [address] [id number], [place] [address] 23 Dec, 2013 [facility] [place] [facility] [address] [id number], [place] [address] 19 Dec, 2013 [facility] [place] [facility] [address] [id number], [place] [address] 1094 19 Dec, 2013 [facility] [place] [facility] [address] [id number] [place] [address] 17 Dec, 2013 [facility] [place] [facility] [address] [id number] [place] [address]888 17 Dec, 2013 [facility] [place] [facility] [address] [id number], [place] [address] 9464 09 Dec, 2013 [facility] [place] [facility] [address] [id number], [place] [address] 09 Dec, 2013 [facility] [place] [facility] [address] [id number] [place] [address] 6759 08 Dec, 2013 [facility] [place] [facility] [address] [id number] [place] [address] Dec, 2013 [facility] [place] [facility] [address] [id number] [place] [address] 28[address] Dec, 2013 [facility] [place] [facility] [address] [id number] [place] [address] Dec, 2013 [facility] [place] [facility] [address] [id number] [place] [address] 4347 Dec, 2013 [facility] [place] [facility] [address] [id number] [place] [address] 6112 Dec, 2013 [facility] [place] [facility] [address] [id number] [place] [address] 6439 Dec, 2013 [facility] [place] [facility] [address] [id number] [place] [address] 3416 Dec, 2013 [facility] [place] [facility] [address] [id number] [place] [address] 8814 Nov, [facility] [place] [facility] [address] [id number] [place] [address] 3760 Nov, [facility] [place] [facility] [address] [id number] [place] [address] 3697 Nov, [facility] [place] [facility] [address] [id number] [place] [address] 1580 Nov, [facility] [place] [facility] [address] [id number] [place] [address] 0612 Nov, [facility] [place] [facility] [address] [id number] [place] [address] 6602 Nov, [facility] [place] [facility] [address] [id number] [place] [address] 1628 Nov, [facility] [place] [facility] [address] [id number] [place] [address]45 Nov, [facility] [place] [facility] [address] [id number] [place] [address] 0445 Nov, [facility] [place] [facility] [address] [id number] [place] [address] 6446 Nov, [facility] [place] [facility] [address] [id number] [place] [address] 9634 Nov, [facility] [place] [facility] [address] [id number] [place] [address] 2545 Nov, [facility] [place] [facility] [address] [id number] [place] [address] 0674 Oct, [facility] [place] [facility] [address] [id number] [place] [address] 7647 Oct, [facility] [place] [facility] [address] [id number] [place] [address] 8634 Oct, [facility] [place] [facility] [address] [id number] [place] [address] 6833 Oct, [facility] [place] [facility] [address] [id number] [place] [address] 6037 Oct, [facility] [place] [facility] [address] [id number] [place] [address]- [address]125 Oct, [facility] [place] [facility] [address] [id number] [place] [address] 2820 Oct, [facility] [place] [facility] [address] [id number] [place] [address]- 5867 Oct, [facility] [place] [facility] [address] [id number] [place] [address]- 9594 Oct, [facility] [place] [facility] [address] [id number] [place] [address]- 9273 Oct, [facility] [place] [facility] [address] [id number] [place] [address]- 6930 16 Oct, 2013 [facility] [place] [facility] [address] [id number] [place] [address] 2897 16 Oct, 2013 [facility] [place] [facility] [address] [id number] [place] [address]- 3684 14 Oct, 2013 [facility] [place] [facility] [address] [id number] [place] [address]- 8859 14 Oct, 2013 [facility] [place] [facility] [address] [id number] [place] [address]- 1468 13 Oct, 2013 [facility] [place] [facility] [address] [id number] [place] [address]- 4445 13 Oct, 2013 [facility] [place] [facility] [address] [id number] [place] [address] 4410 Oct, [facility] [place] [facility] [address] [id number] [place] [address] 4635 27 Sep, 2013 [facility] [place] [facility] [address] [id number] [place] [address]- 4161 27 Sep, 2013 [facility] [place] [facility] [address] [id number] [place] [address]- 3828 20 Sep, 2013 [facility] [place] [facility] [address] [id number] [place] [address]- 6701 20 Sep, 2013 [facility] [place] [facility] [address] [id number] [place] [address]- 6654 18 Sep, 2013 [facility] [place] [facility] [address] [id number] [place] [address]- 7139 18 Sep, 2013 [facility] [place] [facility] [address] [id number] [place] [address]- 4867 17 Sep, 2013 [facility] [place] [facility] [address] [id number] [place] [address]- 0391 17 Sep, 2013 [facility] [place] [facility] [address] [id number] [place] [address]- 7318 11 Sep, 2013 [facility] [place] [facility] [address] [id number] [place] [address]- 9807 11 Sep, 2013 [facility] [place] [facility] [address] [id number] [place] [address]- 1438 Sep, [facility] [place] [facility] [address] [id number] [place] [address]- 3567 Sep, [facility] [place] [facility] [address] [id number] [place] [address]- 8697 Sep, [facility] [place] [facility] [address] [id number] [place] [address]- 5870 Sep, [facility] [place] [facility] [address] [id number] [place] [address]- 8210 Sep, [facility] [place] [facility] [address] [id number] [place] [address]- 2593 Sep, [facility] [place] [facility] [address] [id number] [place] [address]- 0704 Sep, [facility] [place] [facility] [address] [id number] [place] [address]- 2388 Sep, [facility] [place] [facility] [address] [id number] [place] [address]- 6980 Sep, [facility] [place] [facility] [address] [id number] [place] [address]- 2722 Sep, [facility] [place] [facility] [address] [id number] [place] [address]- 6527 Sep, [facility] [place] [facility] [address] [id number] [place] [address] Sep, [facility] [place] [facility] [address] [id number] [place] [address] August, [facility] [place] [facility] [address] [id number] [place] [address] 3559 August, [facility] [place] [facility] [address] [id number] [place] [address] 4587 August, [facility] [place] [facility] [address] [id number] [place] [address] 9901 August, [facility] [place] [facility] [address] [id number] [place] [address]853 August, [facility] [place] [facility] [address] [id number] [place] [address] 4826 August, [facility] [place] [facility] [address] [id number] [place] [address] 9644 August, [facility] [place] [facility] [address] [id number] [place] [address] 5510 August, [facility] [place] [facility] [address] [id number] [place] [address] 5418 August, [facility] [place] [facility] [address] [id number] [place] [address] 9394 August, [facility] [place] [facility] [address] [id number] [place] [address] 8951 August, [facility] [place] [facility] [address] [id number] [place] [address] 3369 Jul, [facility] [place] [facility] [address] [id number] [place] [address]- 9882 Jul, [facility] [place] [facility] [address] [id number] [place] [address] 2376 Jul, [facility] [place] [facility] [address] [id number] [place] [address]- 4441 Jul, [facility] [place] [facility] [address] [id number] [place] [address]- 7146 Jul, [facility] [place] [facility] [address] [id number] [place] [address]- 0243 Jul, [facility] [place] [facility] [address] [id number] [place] [address]- 5211 Jul, [facility] [place] [facility] [address] [id number] [place] [address]- 4577 Jul, [facility] [place] [facility] [address] [id number] [place] [address]- 5381 Jul, [facility] [place] [facility] [address] [id number] [place] [address]- 5829 18 Jul, 2013 [facility] [place] [facility] [address] [id number] [place] [address]- 5677 16 Jul, 2013 [facility] [place] [facility] [address] [id number] [place] [address]- 6905 Jul, [facility] [place] [facility] [address] [id number] [place] [address]- 9058 Jul, [facility] [place] [facility] [address] [id number] [place] [address]- 3249 Jul, [facility] [place] [facility] [address] [id number] [place] [address]- 4807 Jul, [facility] [place] [facility] [address] [id number] [place] [address]- 8112 Jul, [facility] [place] [facility] [address] [id number] [place] [address]- 7650 Jul, [facility] [place] [facility] [address] [id number] [place] [address]- 0022 Jul, [facility] [place] [facility] [address] [id number] [place] [address]- 7335 Jul, [facility] [place] [facility] [address] [id number] [place] [address]- 4746 Jul, [facility] [place] [facility] [address] [id number] [place] [address] 1911 Jul, [facility] [place] [facility] [address] [id number] [place] [address]- 2884 Jul, [facility] [place] [facility] [address] [id number] [place] [address]- 7235 Jul, [facility] [place] [facility] [address] [id number] [place] [address]- 7270 Jun, [facility] [address] [id number] [place] [address]- 1361 Jun, [facility] [place] [facility] [address] [id number] [place] [address]- 3278 Jun, [facility] [address] [id number] [place] [address]- 6780 Jun, [facility] [place] [facility] [address] [id number] [place] [address]- 2674 Jun, [facility] [address] [id number] [place] [address]- 2241 Jun, [facility] [address] [id number] [place] [address]- 5927 Jun, [facility] [place] [facility] [address] [id number] [place] [address]- 3990 Jun, [facility] [address] [id number] [place] [address]- 8058 Jun, [facility] [place] [facility] [address] [id number] [place] [address]- 8886 Jun, [facility] [address] [id number] [place] [address]- 1873 Jun, [facility] [place] [facility] [address] [id number] [place] [address]- 7126 Jun, [facility] [place] [facility] [address] [id number] [place] [address]- 5299 May, [facility] [place] [facility] [address] [id number] [place] [address]- 2569 May, [facility] [place] [facility] [address] [id number] [place] [address]- 0668 Apr, [facility] [place] [facility] [address] [id number] [place] [address]- 5796 Apr, [facility] [place] [facility] [address] [id number] [place] [address]- 7426 Apr, [facility] [place] [facility] [address] [id number] [place] [address]- 9188 Apr, [facility] [place] [facility] [address] [id number] [place] [address]- 3922 Apr, [facility] [place] [facility] [address] [id number] [place] [address]- 9719 Apr, [facility] [place] [facility] [address] [id number] [place] [address]- 0757 Apr, [facility] [place] [facility] [address] [id number] [place] [address]- 0975 Apr, [facility] [place] [facility] [address] [id number] [place] [address]- 4048 Apr, [facility] [place] [facility] [address] [id number] [place] [address]- 5744 Apr, [facility] [place] [facility] [address] [id number] [place] [address]- 5332 Apr, [facility] [place] [facility] [address] [id number] [place] [address]- 6914 Mar, [facility] [place] [facility] [address] [id number] [place] [address]- 9917 16 Mar, 2013 [facility] [place] [facility] [address] [id number] [place] [address]- 0296 Mar, [facility] [place] [facility] [address] [id number] [place] [address]- 0949 Mar, [facility] [place] [facility] [address] [id number] [place] [address]- 1782 Feb, [facility] [place] [facility] [address] [id number] [place]12 Feb, [facility] [place] [facility] [address] [id number], [place] [address]- 0789 Feb, [facility] [place] [facility] [address] [id number] [place] [address]- 5334 Feb, [facility] [place] [facility] [address] [id number], [place] [address]- 4369 Feb, [facility] [place] [facility] [address] [id number] [place] [address]- 6122 Feb, [facility] [place] [facility] [address] [id number], [place] [address]- 0715 Feb, [facility] [place] [facility] [address] [id number] [place] [address]- 3489 Feb, [facility] [place] [facility] [address] [id number], [place] [address]- 6467 Feb, [facility] [place] [facility] [address] [id number], [place] [address]- 1261 Feb, [facility] [place] [facility] [address] [id number], [place] [address]- 0881 Feb, [facility] [place] [facility] [address] [id number], [place] [address]- 6962 Jan, [facility] [place] [facility] [address] [id number], [place] [address]- 0192 Jan, [facility] [place] [facility] [address] [id number], [place] [address]- 1332 Jan, [facility] [place] [facility] [address] [id number], [place] [address]- 7857 Jan, [facility] [place] [facility] [address] [id number], [place] [address]- 9963 Jan, [facility] [place] [facility] [address] [id number], [place] [address]- 4975 Jan, [facility] [place] [facility] [address] [id number], [place] [address]- 3433 Jan, [facility] [place] [facility] [address] [id number] [place] [address]- 2640 02 Jan, 2013 [facility] [place] [facility] [address] [id number] [place] [address]- 0926 30 Sep, 2012 [facility] [place] [facility] [address] [id number] [place] [address] 2546 25 Sep, 2012 [facility] [place] [facility] [address] [id number] [place] [address] 2546 18 Sep, 2012 [facility] [place] [facility] [address] [id number] [place] [address] 2543 17 Sep, 2012 [facility] [place] [facility] [address] [id number] [place] [address]- 7856 17 Dec, 2012 [facility] [place] [facility] [address] [id number] [place] [address]- 9643 16 Dec, 2012 [facility] [place] [facility] [address] [id number] [place] [address]- 4344 13 Dec, 2012 [facility] [place] [facility] [address] [id number] [place] [address]- 7670 11 Dec, 2012 [facility] [place] [facility] [address] [id number] [place] [address]- 2260 05 Dec, 2012 [facility] [place] [facility] [address] [id number] [place] [address]- 5686 04 Dec, 2012 [facility] [place] [facility] [address] [id number] [place] [address]- 2543 30 Nov, 2012 [facility] [place] [facility] [address] [id number] [place] [address] 2540 29 Nov, 2012 [facility] [place] [facility] [address] [id number] [place] [address] 2547 22 Nov, 2012 [facility] [place] [facility] [address] [id number] [place] [address]- 2549 16 Nov, 2012 [facility] [place] [facility] [address] [id number] [place] [address]- 8400 Nov, [facility] [place] [facility] [address] [id number] [place] [address]- 6550 Nov, [facility] [place] [facility] [address] [id number] [place] [address]- 1607 Nov, [facility] [place] [facility] [address] [id number] [place] [address]- 4688 Oct, [facility] [place] [facility] [address] [id number] [place] [address]- 5206 Oct, [facility] [place] [facility] [address] [id number] [place] [address]- 1029 Oct, [facility] [place] [facility] [address] [id number] [place] [address]- 3833 Oct, [facility] [place] [facility] [address] [id number] [place] [address]- 2857 Oct, [facility] [place] [facility] [address] [id number] [place] [address]- 3610 Oct, [facility] [place] [facility] [address] [id number] [place] [address]- 8506 Sep, [facility] [place] [facility] [address] [id number] [place] [address]- 0163 Sep, [facility] [place] [facility] [address] [id number] [place] [address]- 6024 Sep, [facility] [place] [facility] [address] [id number], [place] [address]- 7286 14 Sep, 2012 [facility] [place] [facility] [address] [id number] [place] [address]- 4975 13 Sep, 2012 [facility] [place] [facility] [address] [id number] [place] [address]- 7339 10 Sep, 2012 [facility] [place] [facility] [address] [id number] [place] [address]- 5881 07 Sep, 2012 [facility] [place] [facility] [address] [id number] [place] [address]- 1574 Sep, [facility] [address] [id number] [place] [address]- 7415 Sep, [facility] [address] [id number] [place] [address]- 8509 August, [facility] [address] [id number] [place] [address]- 9065 August, [facility] [address] [id number] [place] [address]- 4473 August, [facility] [address] [id number] [place] [address]- 1590 August, [facility] [address] [id number] [place] [address]- 2525 August, [facility] [address] [id number] [place] [address]- 8872 August, [facility] [address] [id number] [place] [address]- 8439 August, [facility] [address] [id number] [place] [address]- 1633 August, [facility] [address] [id number] [place] [address]- 9286 Jul, [facility] [address] [id number] [place] [address]- 5296 Jul, [facility] [address] [place] [id number] Jul [facility] [address] [id number] [place] [address]- 6532 Jun, [facility] [address] [id number] [place] [address]- 0430 Jun, [facility] [address] [id number] [place] [address]- 9603 Jun, [facility] [address] [id number] [place] [address]- 0989 Jun, [facility] [address] [id number] [place] [address]- 4799 Jun, [facility] [place] [facility] [address] [id number] [place] [address]- 2325 Jun, [facility] [address] [id number] [place] [address]- 4329 May, [facility] [address] [id number] [place] [address]- 1098 May, [facility] [address] [id number] [place] [address]- 6235 May, [facility] [address] [id number] [place] [address]- 5454 May, [facility] [address] [id number] [place] [address]- 0074 May, [facility] [address] [id number] [place] [address]- 4611 Apr, [facility] [address] [id number] [place] [address]- 1438 Apr, [facility] [address] [id number] [place] [address]- 6306 Apr, [facility] [address] [id number] [place] [address]- 3594 Apr, [facility] [address] [id number] [place] [address]- 8831 Apr, [facility] [place] [facility] [address] [id number] [place] [address]- 8605 Apr, [facility] [place] [facility] [address] [id number] [place] [address]- 1946 Mar, [facility] [address] [id number] [place] [address]- 2958 20 Mar, 2012 [facility] [place] [facility] [address] [id number] [place] [address]- 6453 20 Mar, 2012 [facility] [place] [facility] [address] [id number] [place] [address]- 8836 19 Mar, 2012 [facility] [place] [facility] [address] [id number] [place] [address]- 9276 19 Mar, 2012 [facility] [place] [facility] [address] [id number] [place] 3732 18 Mar, 2012 [facility] [place] [facility] [address] [id number] [place] [address]- 0775 18 Mar, 2012 [facility] [place] [facility] [address] [id number] [place] [address]- 6447 Mar, [facility] [place] [facility] [address] [id number] [place] [address]- 6202 Mar, [facility] [place] [facility] [address] [id number] [place] [address]- 7808 05 Mar, 2012 [facility] [place] [facility] [address] [id number] [place] [address]- 1835 05 Mar, 2012 [facility] [place] [facility] [address] [id number] [place] [address]- 7248 28 Feb, 2012 [facility] [place] [facility] [address] [id number] [place] [address]- 2771 28 Feb, 2012 [facility] [place] [facility] [address] [id number], [place] [address]- 5503 Feb, [facility] [place] [facility] [address] [id number] [place] [address]- 4086 Feb, [facility] [place] [facility] [address] [id number] [place] [address]- 3602 Feb, [facility] [place] [facility] [address] [id number] [place] [address]- 0506 16 Feb, 2012 [facility] [place] [facility] [address] [id number] [place] [address]- 1039 16 Feb, 2012 [facility] [place] [facility] [address] [id number] [place] [address]- 0639 Feb, [facility] [place] [facility] [address] [id number] [place] 3149 Feb, [facility] [place] [facility] [address] [id number] [place] [address]- 4564 Feb, [facility] [place] [facility] [address] [id number] [place] [address]- 1748 Feb, [facility] [place] [facility] [address] [id number] [place] [address]- 3948 Jan, [facility] [place] [facility] [address] [id number] [place] [address]- 4159 Jan, [facility] [place] [facility] [address] [id number] [place] [address]- 8234 Jan, [facility] [place] [facility] [address] [id number] [place] [address]- 3452 Jan, [facility] [place] [facility] [address] [id number] [place] [address]- 3835 Jan, [facility] [place] [facility] [address] [facility] [id number] [place] [address]- 6475 Jan, [facility] [place] [facility] [address] [id number] [place] [address]- 0574 09 Jan, 2012 [facility] [place] [facility] [address] [id number] [place] [address]- 6721 24 Sep2011 [facility] [place] [facility] [address] [id number] [place] [address]- 4940 17 Sep2011 [facility] [place] [facility] [address] [id number] [place] [address]- 6400 13 Sep2011 [facility] [place] [facility] [address] [id number] [place] [address]- 0945 Dec, [facility] [place] [facility] [address] [id number] [place] [address]- 8461 Nov, [facility] [place] [facility] [address] [id number] [place] [address]- 9429 Nov, [facility] [place] [facility] [address] [id number] [place] [address]- 6156 Nov, [facility] [place] [facility] [address] [id number] [place] [address]- 1386 Nov, [facility] [place] [facility] [address] [id number] [place] [address] Nov, [facility] [place] [facility] [address] [id number] [place] [address] Nov, [facility] [place] [facility] [address] [id number] [place] [address] Nov, [facility] [place] [facility] [address] [id number] [place] [address] Nov, [facility] [place] [facility] [address] [id number] [place] [address] Nov, [facility] [place] [facility] [address] [id number] [place] [address] Nov, [facility] [place] [facility] [address] [id number] [place] [address] Nov, [facility] [place] [facility] [address] [id number] [place] [address] Nov, [facility] [place] [facility] [address] [id number] [place] [address] Nov, [facility] [place] [facility] [address] [id number] [place] [address] Oct, [facility] [place] [facility] [address] [id number] [place] [address] Oct, [facility] [place] [facility] [address] [id number] [place] [address] Oct, [facility] [place] [facility] [address] [id number] [place] [address] Oct, [facility] [place] [facility] [address] [id number] [place] [address] Oct, [facility] [place] [facility] [address] [id number] [place] [address] Oct, [facility] [place] [facility] [address] [id number] [place] [address] Oct, [facility] [place] [facility] [address] [id number] [place] [address] Oct, [facility] [place] [facility] [address] [id number] [place] [address] Oct, [facility] [place] [facility] [address] [id number] [place] [address] Sep, [facility] [place] [facility] [address] [id number] [place] [address] Sep, [facility] [place] [facility] [address] [id number] [place] [address] Sep, [facility] [place] [facility] [address] [id number] [place] [address] Sep, [facility] [place] [facility] [address] [id number] [place] [address] Sep, [facility] [place] [facility] [address] [id number] [place] [address] Sep, [facility] [place] [facility] [address] [id number] [place] [address] Sep, [facility] [place] [facility] [address] [id number] [place] [address] Sep, [facility] [place] [facility] [address] [id number] [place] [address] August, [facility] [place] [facility] [address] [id number], [place] [address] August, [facility] [address] [id number] [address] August, [facility] [address] [id number], [place] [address] August, [facility] [id number], [place] [address] August, [facility] [address] [facility] [id number], [place] [address] August, [facility] [id number], [place] [address] August, [facility] [id number], [place] [address] August, [facility] [id number], [place] [address] August, [facility] [id number], [place] [address] August, [facility] [address] [id number], [place] [address] August, [facility] [address] [id number], [place] [address] August, [facility] [address] [id number], [place] [address] Oct, IMMUNIZATIONS No Known Immunizations SOCIAL HISTORY [...] Hospitalization History suicidal ideations-[facility] 12/28 Hospitalization History hypoxia--[facility] 02/13/2016 Hospitalization History shortness of breath at june 2016 Hospitalization History Shortness of breath at august 2016 Hospitalization History SOB, chest pain at 12/2016
[2018-02-11] MEDS ORDERED: TRAM50TA2 PO (13:21)
--- OUTSIDE RECORDS SUMMARY | 2018-02-11 13:22 | XMS REPORT ---
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 [address] 62614- 0883 Apr, [facility] [id number] [place] [address] 24930- 0270 Apr, [place] [id number] [place] [address] 37263- 2900 Apr, Dysuria R30.0 and Well woman exam (no gynecological exam) Z00.00 [place] [id number] [place] [address] 08391- 5201 Mar, [facility] [id number] [place] [address] 35584- 8048 Mar, [facility] [id number] [place] [address] [id number] Mar, Dental examination Z01.20 [place] [id number] [place] [address] 77293- 1768 Mar, Chronic diarrhea K52.9 ; Intractable vomiting with nausea, vomiting of unspecified type R11.2 ; Cellulitis, unspecified cellulitis site L03.90 ; Type 2 diabetes mellitus with diabetic polyneuropathy E11.42 and Postinflammatory hyperpigmentation L81.0 [facility] [id number] [place] [address] 91510- 0589 Mar, Unspecified mood [affective] disorder F39 [facility] [id number] [place] [address] 97700- 6651 Mar, Unspecified mood [affective] disorder F39 [facility] [address] [facility] [id number], [place] [address]- 1825 Mar, [facility] [address] [facility] [id number], [place] [address]- 4436 Mar, [facility] [address] [facility] [id number], [place] [address]- 5964 Mar, [facility] [address] [facility] [id number], [place] [address]- 0223 Mar, [facility] [address] [facility] [id number], [place] [address]- 3663 Mar, [facility] [address] [facility] [id number], [place] [address]- 4437 Mar, [facility] [address] [id number], [place] [address]- 6988 Feb, Unspecified mood [affective] disorder F39 [facility] [address] [facility] [id number], [place] [address]- 4295 Feb, [facility] [address] [id number], [place] [address]- 6893 Feb, [facility] [address], [place] [address]- 5156 Jan, Unspecified mood [affective] disorder F39 [facility] [id number] [id number] [id number] Jan, Encounter for dental examination Z01.20 [facility] [address] [facility] [id number], [place] [address]- 9314 Jan, [facility] [address] [id number], [place] [address]- 2465 Jan, [facility] [address] [id number], [place] [address]- 9124 Jan, [facility] [address] [place] [address] 84377- 2776 Jan, [facility] [id number] [place] [address] 90029- 8752 Jan, [facility] [address] 60993- 6513 Jan, Abdominal abscess K65.1 and Dental caries K02.9 [facility] [address] 90940- 2150 Jan, [facility] [address] 04152- 6613 30 Dec, 2014 Diabetes with neurological manifestations, type II or unspecified type, not stated as uncontrolled 250.60 ; Essential hypertension, benign 401.1 ; Concussion 850.9 and Skin texture changes 782.8 [facility] [address] 99054- 8124 Dec, [facility] [address] 31362- 0893 24 Dec, 2014 [facility] [id number] [place] [address] 45664- 9989 Dec, [facility] [id number] [place] [address] 62034- 6148 Dec, [facility] [id number] [place] [address] 37784- 2912 17 Dec, 2014 Affective disorder 296.90 [facility] [address] 39189- 6207 14 Dec, 2014 [facility] [id number] [place] [address] 26973- 0697 10 Dec, 2014 Affective disorder 296.90 [facility] [id number] [place] [address] 32221- 3784 04 Dec, 2014 [facility] [id number] [place] [address] 26756- 4307 04 Dec, 2014 [facility] [address], [place] [address] 2546 Dec, [facility] [address] [place] [address] 59448 2546 Dec, [facility] [address], [place] [address] 2546 Nov, Affective disorder 296.90 [facility] [id number] [place] [address] 87119 2546 Nov, [facility] [address] [place] [address] 40729 2546 Nov, Affective disorder 296.90 [facility] [id number] [place] [address] 70681 2546 Nov, Diarrhea 787.91 [facility] [address] [place] [address] 11820 2546 Nov, [facility] [address] [place] [address] 33549 2546 Nov, Diarrhea 787.91 [facility] [id number] [place] [address] 85152 2546 Nov, Diarrhea 787.91 and Hyperlipidemia 272.4 [facility] [address], [place] [address] 2546 Nov, Diarrhea 787.91 [facility] [address] [place] [address] 89102 2546 Nov, Affective disorder 296.90 [facility] [address], [place] [address] 2546 Nov, Affective disorder 296.90 [facility] [address], [place] [address] 2546 Nov, Affective disorder 296.90 [facility] [address], [place] [address] 2546 Nov, [facility] [address], [place] [address]- 4940 Nov, [facility] [address] [place] [address] 31441- 0606 Nov, [facility] [address], [place] [address]- 6837 Nov, Episodic mood disorder 296.90 [facility] [id number] [place] [address] 57063- 1637 Nov, [facility] [id number] [place] [address] 68970- 1212 Nov, [facility] [id number] [place] [address] 51936- 0003 Nov, [facility] [id number] [place] [address] 17659- 1735 Nov, [facility] [id number] [place] [address] 66517- 7316 Nov, [facility] [address], [place] [address]- 3426 Nov, Lymphedema 457.1 ; Hyperlipidemia 272.4 ; Essential hypertension, benign 401.1 and Numbness of toes 782.0 [facility] [address], [place] [address]- 8026 Nov, Episodic mood disorder 296.90 [facility] [address], [place] [address]- 0122 Oct, [facility] [address], [place] [address]- 5821 Oct, [facility] [id number] [address]- 6228 Oct, [facility] [address], [place] [address]- 8830 Oct, [facility] [address], [place] [address]- 7863 14 Oct, 2014 [facility] [address] [facility] [id number] [place] [address] Oct, 2014 [facility] [address] [facility] [id number], [place] [address] Oct, 2014 [facility] [address] [facility] [id number] [place] [address] Oct, 2014 [facility] [address] [facility] [id number] [address] Oct, Episodic mood disorder 296.90 [facility] [address] [facility] [id number] [place] [address] 30 Sep, 2014 [facility] [address] [facility] [id number] [address] Sep, [facility] [address] [facility] [id number], [place] [address] Sep, [facility] [address] [facility] [id number], [place] [address] Sep, [facility] [address] [facility] [id number], [place] [address] Sep, [facility] [address] [facility] [id number], [place] [address] Sep, Episodic mood disorder 296.90 [facility] [id number] [address] Sep, Unspecified episodic mood disorder 296.90 [facility] [address] [facility] [id number], [place] [address] Sep, [facility] [address] [facility] [id number], [place] [address] Sep, [facility] [address] [facility] [id number], [place] [address] 16 Sep, 2014 Episodic mood disorder 296.90 [facility] [address], [place] [address] Sep, [facility] [address], [place] [address] Sep, [facility] [id number] [place] [address]- [address] Sep, [facility] [id number] [place] [address]- 8527 Sep, Hematemesis 578.0 and Vomiting 787.03 [facility] [id number] [place] [address]- [address]756 Sep, Episodic mood disorder 296.90 [facility] [id number] [place] [address]- 7441 Sep, [facility] [id number] [place] [address]- 7683 Sep, [facility] [id number] [place] [address]- 6270 Sep, Diabetes mellitus without mention of complication, type II or unspecified type, not stated as uncontrolled 250.00 and Other chronic pain 338.29 [facility] [id number] [place] [address]- 9827 Sep, Episodic mood disorder 296.90 [facility] [id number] [place] [address] 50[address]- [address]75 Sep, [facility] [id number] [place] [address]- 5625 Sep, Episodic mood disorder 296.90 [facility] [id number] [place] [address] 332230- 8701 Sep, [facility] [id number] [place] [address]- [address] August, [facility] [address], [place] [address] August, [facility] [address] [id number] [place] [address] August, Episodic mood disorder 296.90 [facility] [id number] [place] [address] August, [facility] [id number] [place] [address] August, Unspecified episodic mood disorder 296.90 [facility] [id number] [place] [address] August, Vomiting 787.03 [facility] [address] [id number] [place] [address] August, [facility] [id number] [place] [address]- 0977 August, [facility] [id number] [place] [address]- 0597 August, [facility] [id number] [place] [address]- 0244 August, [facility] [id number] [place] [address] 9410 August, [facility] [id number] [place] [address] 1227 Jul, [facility] [address]005[address] [address] Jul, [facility] [id number] [place] [address] 66[address] Jul, [facility] [address] [id number] [place] [address] 5083 Jun, [facility] [address] [id number] [id number] [address] Jun, [facility] [address] [id number] [place] [address]- 5139 Jun, [facility] [place] [facility] [address] [facility] [id number] [place] [address]- 3508 30 Jun, 2014 [facility] [place] [facility] [address] [id number] [place] [address]- 6906 30 Jun, 2014 [facility] [place] [facility] [address] [id number] [place] [address]- 4166 Jun, [facility] [place] [facility] [address] [id number] [place] [address]- 8146 Jun, [facility] [place] [facility] [address] [id number] [place] [address]- 2531 Jun, [facility] [place] [facility] [address] [id number] [place] [address]- 2099 Jun, [facility] [place] [facility] [address] [id number] [place] [address]- 5675 Jun, [facility] [place] [facility] [address] [id number] [place] [address]- 2146 Jun, [facility] [place] [facility] [address] [id number] [place] [address]- 3044 Jun, [facility] [place] [facility] [address] [id number] [place] [address]- 0144 Jun, [facility] [place] [facility] [address] [id number] [place] [address]- 3430 Jun, [facility] [place] [facility] [address] [id number] [place] [address]- 2718 Jun, [facility] [place] [facility] [address] [id number] [place] [address]- 4824 Jun, [facility] [place] [facility] [address] [id number] [place] [address]- 6932 Jun, [facility] [place] [facility] [address] [id number] [place] [address]- 0327 Jun, [facility] [place] [facility] [address] [id number] [place] [address] Jun, [facility] [place] [facility] [address] [id number] [place] [address]- 4776 21 Jun, 2014 [facility] [place] [facility] [address] [id number] [place] [address]- 9663 21 Jun, 2014 [facility] [place] [facility] [address] [id number] [place] [address]- 0831 20 Jun, 2014 [facility] [place] [facility] [address] [id number] [place] [address]- 4635 20 Jun, 2014 [facility] [place] [facility] [address] [id number] [place] [address]- 9044 20 Jun, 2014 [facility] [place] [facility] [address] [id number] [place] [address]- 0464 20 Jun, 2014 [facility] [place] [facility] [address] [id number] [place] [address]- 9164 19 Jun, 2014 [facility] [place] [facility] [address] [id number] [place] [address]- 4568 19 Jun, 2014 [facility] [place] [facility] [address] [id number] [place] [address]- 4502 18 Jun, 2014 [facility] [place] [facility] [address] [id number] [place] [address]- 8515 18 Jun, 2014 [facility] [place] [facility] [address] [id number] [place] [address]- 1605 17 Jun, 2014 [facility] [place] [facility] [address] [id number] [place] [address]- 2674 17 Jun, 2014 [facility] [place] [facility] [address] [id number] [place] [address]- 3115 16 Jun, 2014 [facility] [place] [facility] [address] [id number] [place] [address]- 8569 16 Jun, 2014 [facility] [place] [facility] [address] [id number] [place] [address]- 5548 16 Jun, 2014 [facility] [place] [facility] [address] [id number] [place] [address]- 5890 16 Jun, 2014 [facility] [place] [facility] [address] [id number] [place] [address]- 6268 16 Jun, 2014 [facility] [place] [facility] [address] [id number] [place] [address]- 0946 16 Jun, 2014 [facility] [place] [facility] [address] [id number] [place] [address]- 5894 13 Jun, 2014 [facility] [place] [facility] [address] [id number] [place] [address]- 6497 13 Jun, 2014 [facility] [place] [facility] [address] [id number] [place] [address]- 6924 Jun, [facility] [place] [facility] [address] [id number] [place] [address]- 1530 Jun, 2014 [facility] [place] [facility] [address] [id number] [place] [address]- 0041 Jun, 2014 [facility] [place] [facility] [address] [id number] [place] [address]- 3207 Jun, 2014 [facility] [place] [facility] [address] [id number] [place] [address]- 5755 Jun, 2014 [facility] [place] [facility] [address] [id number] [place] [address]- 7732 Jun, 2014 [facility] [place] [facility] [address] [id number] [place] [address]- 4731 Jun, 2014 [facility] [place] [facility] [address] [id number] [place] [address]- 1203 Jun, 2014 [facility] [place] [facility] [address] [id number] [place] [address]- 8946 Jun, 2014 [facility] [place] [facility] [address] [id number] [place] [address]- 2453 Jun, 2014 [facility] [place] [facility] [address] [id number] [place] [address]- 8240 Jun, 2014 [facility] [place] [facility] [address] [id number] [place] [address]- 0732 Jun, [facility] [place] [facility] [address] [id number] [place] [address]- 3192 Jun, [facility] [place] [facility] [address] [id number] [place] [address]- 6401 Jun, 2014 [facility] [place] [facility] [address] [id number] [place] [address]- 4005 Jun, 2014 [facility] [place] [facility] [address] [id number] [place] [address]- 7690 Jun, [facility] [place] [facility] [address] [id number] [place] [address]- 7175 Jun, [facility] [place] [facility] [address] [facility] [id number] [place] [address]- 5683 Jun, [facility] [place] [facility] [address] [id number] [place] [address]- 6605 May, [facility] [place] [facility] [address] [id number] [place] [address]- 3591 May, [facility] [place] [facility] [address] [facility] [id number] [place] [address]- 1487 May, [facility] [place] [facility] [address] [facility] [id number] [place] [address]- 6168 May, [facility] [place] [facility] [address] [id number] [place] [address]- 1024 May, 2014 [facility] [place] [facility] [address] [id number] [place] [address]- 3592 May, [facility] [place] [facility] [address] [id number] [place] [address]- 9275 May, [facility] [place] [facility] [address] [facility] [id number] [place] [address]- 2789 May, [facility] [place] [facility] [address] [facility] [id number] [place] [address]- 9355 20 May, 2014 [facility] [place] [facility] [address] [facility] [id number] [place] [address]- 7079 20 May, 2014 [facility] [place] [facility] [address] [facility] [id number] [place] [address]- 4620 18 May, 2014 [facility] [place] [facility] [address] [facility] [id number] [place] [address]- 3248 18 May, 2014 [facility] [place] [facility] [address] [facility] [id number] [place] [address]- 8152 13 May, 2014 [facility] [place] [facility] [address] [facility] [id number] [place] [address]- 7242 13 May, 2014 [facility] [place] [facility] [address] [id number] [place] [address]- 8797 11 May, 2014 [facility] [place] [facility] [id number] [place] [address]- 7587 May, 2014 [facility] [place] [facility] [address] [facility] [id number] [place] [address]- 5940 May, 2014 [facility] [place] [facility] [address] [id number] [place] [address]- 3578 May, 2014 [facility] [place] [facility] [address] [id number] [address]- 3936 09 May, 2014 [facility] [place] [facility] [address] [facility] [id number], [place] [address]- 5350 May, 2014 [facility] [place] [facility] [address] [facility] [id number], [place] [address]- 0668 May, 2014 [facility] [place] [facility] [address] [facility] [id number] [place] [address]- 1148 May, 2014 [facility] [place] [facility] [address] [facility] [id number], [place] [address]- 4383 05 May, 2014 [facility] [place] [facility] [address], [place] [address]- 7661 May, [facility] [place] [facility] [address] [id number] [place] [address]- 7508 May, [facility] [place] [facility] [address] [id number] [place] [address]- 7465 May, [facility] [place] [facility] [address] [id number] [place] [address]- 1684 May, [facility] [place] [facility] [address] [id number] [place] [address]- 1328 Apr, [facility] [place] [facility] [address] [id number] [place] [address]- 0862 Apr, [facility] [place] [facility] [address] [id number] [place] [address]- 6398 Apr, [facility] [place] [facility] [address] [id number] [place] [address]- 2382 Apr, [facility] [place] [facility] [address] [id number] [place] [address]- 2475 Apr, [facility] [place] [facility] [address] [id number] [place] [address]- 8859 Apr, [facility] [place] [facility] [address] [id number] [place] [address]- 4890 Apr, [facility] [place] [facility] [address] [id number], [place] [address]- 7844 Apr, [facility] [place] [facility] [address] [id number], [place] [address]- 0634 Apr, [facility] [place] [facility] [address] [id number], [place] [address]- 5842 Apr, [facility] [place] [facility] [address] [id number], [place] [address]- 1569 Apr, [facility] [place] [facility] [address] [id number], [place] [address]- 4938 Apr, [facility] [place] [facility] [address] [id number] [place] [address]- 3003 Apr, [facility] [place] [facility] [address] [id number] [place] [address]- 6626 Apr, [facility] [place] [facility] [address] [id number] [place] [address]- 2904 Apr, [facility] [place] [facility] [address] [id number] [place] [address]- 1314 Apr, [facility] [place] [facility] [address] [id number] [place] [address]- 0364 Apr, [facility] [place] [facility] [address] [id number] [place] [address]- 0786 Apr, [facility] [place] [facility] [address] [id number] [place] [address]- 1391 Apr, [facility] [place] [facility] [address] [id number] [place] [address]- 8786 Apr, [facility] [place] [facility] [address] [id number] [place] [address]- 0553 Mar, [facility] [place] [facility] [address] [id number] [place] [address]- 5722 Mar, [facility] [place] [facility] [address] [id number] [place] [address]- 4786 Mar, [facility] [place] [facility] [address] [id number] [place] [address]- 4711 Mar, [facility] [place] [facility] [address] [id number] [place] [address]- 4120 Mar, [facility] [place] [facility] [address] [id number] [place] [address]- 6620 Mar, [facility] [place] [facility] [address] [id number] [place] [address]- 7939 Mar, [facility] [place] [facility] [address] [id number] [place] [address]- 9637 Mar, [facility] [place] [facility] [address] [id number] [place] [address]- 7710 15 Mar, 2014 [facility] [place] [facility] [address] [id number] [place] [address]- 1209 Mar, [facility] [place] [facility] [address] [id number] [place] [address]- 6473 15 Mar, 2014 [facility] [place] [facility] [address] [id number] [place] [address]- 1810 Mar, [facility] [place] [facility] [address] [id number] [place] [address]- 0791 Mar, [facility] [place] [facility] [address] [id number] [place] [address]- 0379 Mar, [facility] [place] [facility] [address] [id number] [place] [address]- 9133 Mar, [facility] [place] [facility] [address] [id number] [place] [address]- 9155 Mar, [facility] [place] [facility] [address] [id number] [place] [address]- 1826 Feb, [facility] [place] [facility] [address] [id number] [place] [address]- 7548 Feb, [facility] [place] [facility] [address] [id number], [place] [address]- 4019 Feb, [facility] [place] [facility] [address] [id number], [place] [address]- 7437 Feb, [facility] [place] [facility] [address] [id number] [place] [address]- 8830 Feb, [facility] [place] [facility] [address] [id number] [place] [address]- 7148 Feb, [facility] [place] [facility] [address] [id number] [place] [address]- 6750 Feb, [facility] [place] [facility] [address] [id number] [place] [address]- 7118 18 Feb, 2014 [facility] [place] [facility] [address] [id number] [place] [address]- 3293 18 Feb, 2014 [facility] [place] [facility] [address] [id number] [place] [address]- 9904 17 Feb, 2014 [facility] [place] [facility] [address] [id number] [place] [address]- 6512 17 Feb, 2014 [facility] [place] [facility] [address] [id number] [place] [address]- 5857 17 Feb, 2014 [facility] [place] [facility] [address] [id number] [place] [address]- 3350 17 Feb, 2014 [facility] [place] [facility] [address] [id number] [place] [address]- 7874 14 Feb, 2014 [facility] [place] [facility] [address] [id number] [place] [address]- 9786 14 Feb, 2014 [facility] [place] [facility] [address] [id number] [place] [address]- 4234 14 Feb, 2014 [facility] [place] [facility] [address] [id number] [place] [address]- 2296 14 Feb, 2014 [facility] [place] [facility] [address] [facility] [id number] [place] [address]- 5329 10 Feb, 2014 [facility] [place] [facility] [address] [id number] [place] [address]- 0104 Feb, [facility] [place] [facility] [address] [id number] [place] [address]- 4667 Feb, [facility] [place] [facility] [address] [id number] [place] [address]- 9997 Feb, [facility] [place] [facility] [address] [id number] [place] [address]- 7192 Jan, [facility] [place] [facility] [address] [id number] [place] [address]- 9870 Jan, [facility] [place] [facility] [address] [id number] [place] [address]- 7087 Jan, [facility] [place] [facility] [address] [id number] [place] [address]- 8329 Jan, [facility] [place] [facility] [address] [id number] [place] [address]- 2874 Jan, [facility] [place] [facility] [address] [id number] [place] [address]- 8477 Jan, [facility] [place] [facility] [address] [id number] [place] [address]- 7851 Jan, [facility] [place] [facility] [address] [id number] [place] [address]- 0190 Jan, [facility] [place] [facility] [address] [id number] [place] [address]- 2777 Jan, [facility] [place] [facility] [address] [id number] [place] [address]- 3736 Jan, [facility] [place] [facility] [address] [id number] [place] [address]- 3785 Jan, [facility] [place] [facility] [address] [id number] [place] [address]- 8175 Jan, [facility] [place] [facility] [address] [id number] [place] [address]- 6190 Jan, [facility] [place] [facility] [address] [id number] [place] [address]- 2223 17 Jan, 2014 [facility] [place] [facility] [address] [id number] [place] [address]- 9649 15 Jan, 2014 [facility] [place] [facility] [address] [id number] [place] [address]- 9549 15 Jan, 2014 [facility] [place] [facility] [address] [id number] [place] [address]- 7552 14 Jan, 2014 [facility] [place] [facility] [address] [id number] [place] [address]- 3654 14 Jan, 2014 [facility] [place] [facility] [address] [id number] [place] [address]- 2615 Jan, [facility] [place] [facility] [address] [id number] [place] [address]- 0002 Jan, [facility] [place] [facility] [address] [id number] [place] [address]- 0259 Jan, [facility] [place] [facility] [address] [id number] [place] [address]- 3058 Jan, [facility] [place] [facility] [address] [id number] [place] [address]- 6547 Jan, [facility] [place] [facility] [address] [id number] [place] [address]- 9885 Jan, [facility] [place] [facility] [address] [id number] [place] [address]- 8391 Jan, [facility] [place] [facility] [address] [id number] [place] [address]- 5591 25 Dec, 2013 [facility] [place] [facility] [address] [id number] [place] [address]- 4509 25 Dec, 2013 [facility] [place] [facility] [address] [id number] [place] [address]- 8296 23 Dec, 2013 [facility] [place] [facility] [address] [id number] [place] [address]- 8567 23 Dec, 2013 [facility] [place] [facility] [address] [id number], [place] [address]- 1891 19 Dec, 2013 [facility] [place] [facility] [address] [id number] [place] [address]- 2545 19 Dec, 2013 [facility] [place] [facility] [address] [id number] [place] [address]- 2765 17 Dec, 2013 [facility] [place] [facility] [address] [id number] [place] [address]- 254 17 Dec, 2013 [facility] [place] [facility] [address] [id number] [place] [address]- 2492 09 Sep, 2013 [facility] [place] [facility] [address] [id number] [place] [address]- [address] 09 Sep, 2013 [facility] [place] [facility] [address] [id number] [place] [address] 08 Dec, 2013 [facility] [place] [facility] [address] [id number] [place] [address] 08 Sep, 2013 [facility] [place] [facility] [address] [id number] [place] [address] Dec, 2013 [facility] [place] [facility] [address] [id number] [place] [address] Dec, 2013 [facility] [place] [facility] [address] [id number] [place] [address] Dec, 2013 [facility] [place] [facility] [address] [id number] [place] [address] Dec, 2013 [facility] [place] [facility] [address] [id number] [place] [address]- [address] Dec, 2013 [facility] [place] [facility] [address] [id number] [place] [address] Dec, 2013 [facility] [place] [facility] [address] [id number] [place] [address]65 Nov, [facility] [place] [facility] [address] [id number] [place] [address] Nov, [facility] [place] [facility] [address] [id number] [place] [address]- [address] Nov, [facility] [place] [facility] [address] [id number] [place] [address]- [address] Nov, [facility] [place] [facility] [address] [id number] [place] [address]- [address] Nov, [facility] [place] [facility] [address] [id number] [place] [address]- 8531 Nov, [facility] [place] [facility] [address] [id number] [place] [address]- [address] Nov, [facility] [place] [facility] [address] [id number] [place] [address]- [address]853 Nov, [facility] [place] [facility] [address] [id number] [place] [address]- 1438 Nov, [facility] [place] [facility] [address] [id number] [place] [address]- [address] Nov, [facility] [place] [facility] [address] [id number] [place] [address]- [address] Nov, [facility] [place] [facility] [address] [id number] [place] [address]- 9799 Nov, [facility] [place] [facility] [address] [id number] [place] [address]- [address] Oct, [facility] [place] [facility] [address] [id number] [place] [address]- [address] Oct, [facility] [place] [facility] [address] [id number] [place] [address]- 8964 Oct, [facility] [place] [facility] [address] [id number] [place] [address]- 116[address] Oct, [facility] [place] [facility] [address] [id number] [place] [address]- [address] Oct, [facility] [place] [facility] [address] [id number] [place] [address]- [address]28 Oct, [facility] [place] [facility] [address] [id number] [place] [address]- 0473 Oct, [facility] [place] [facility] [address] [id number] [place] [address]- 9198 Oct, [facility] [place] [facility] [address] [id number] [place] [address] Oct, [facility] [place] [facility] [address] [id number] [place] [address]- [address] 22 Oct, 2013 [facility] [place] [facility] [address] [id number] [place] [address]- 7741 16 Oct, 2013 [facility] [place] [facility] [address] [id number] [place] [address] 16 Oct, 2013 [facility] [place] [facility] [address] [id number] [place] [address]- 9431 14 Oct, 2013 [facility] [place] [facility] [address] [id number] [place] [address] 4232 14 Oct, 2013 [facility] [place] [facility] [address] [id number] [place] [address]- 8612 13 Oct, 2013 [facility] [place] [facility] [address] [id number] [place] [address]- [address] 13 Oct, 2013 [facility] [place] [facility] [address] [id number] [place] [address] 79[address] Oct, [facility] [place] [facility] [address] [id number] [place] [address]- [address] 27 Sep, 2013 [facility] [place] [facility] [address] [id number] [place] [address]- 8682 27 Sep, 2013 [facility] [place] [facility] [address] [id number] [place] [address]- 6[address] 20 Sep, 2013 [facility] [place] [facility] [address] [id number] [place] [address]- 3048 20 Sep, 2013 [facility] [place] [facility] [address] [id number] [place] [address] 18 Sep, 2013 [facility] [place] [facility] [address] [id number] [place] [address]- [address] 18 Sep, 2013 [facility] [place] [facility] [address] [id number] [place] [address]- 6198 17 Sep, 2013 [facility] [place] [facility] [address] [id number] [place] [address]- 3111 17 Sep, 2013 [facility] [place] [facility] [address] [id number] [place] [address]- [address] Sep, [facility] [place] [facility] [address] [id number] [place] [address]- 2[address] Sep, [facility] [place] [facility] [address] [id number] [place] [address]- 9648 Sep, [facility] [place] [facility] [address] [id number] [place] [address]- 6[address] Sep, [facility] [place] [facility] [address] [id number] [place] [address]- [address] Sep, [facility] [place] [facility] [address] [id number] [place] [address]- 1594 Sep, [facility] [place] [facility] [address] [id number] [place] [address]- 2984 Sep, [facility] [place] [facility] [address] [id number] [place] [address]- 1412 Sep, [facility] [place] [facility] [address] [id number] [place] [address]- [address]26 Sep, [facility] [place] [facility] [address] [id number] [place] [address]- 0184 Sep, [facility] [place] [facility] [address] [id number] [place] [address]- 3468 Sep, [facility] [place] [facility] [address] [id number] [place] [address]- 9092 Sep, [facility] [place] [facility] [address] [id number] [place] [address]- 3204 Sep, [facility] [place] [facility] [address] [id number] [place] [address]- 1568 Sep, [facility] [place] [facility] [address] [id number] [place] [address]- 1520 August, [facility] [place] [facility] [address] [id number] [place] [address]- 70[address] August, [facility] [address] [id number] [place] [address]- 3557 August, [facility] [place] [facility] [address] [id number] [place] [address]- 6520 August, [facility] [place] [facility] [address] [id number] [place] [address]- 2149 August, [facility] [place] [facility] [address] [id number] [place] [address]- 6[address] August, [facility] [place] [facility] [address] [id number] [place] [address]- 7993 August, [facility] [place] [facility] [address] [id number] [place] [address]- 5639 August, [facility] [place] [facility] [address] [id number] [place] [address]- 6828 August, [facility] [place] [facility] [address] [id number] [place] [address]- 9405 August, [facility] [place] [facility] [address] [id number] [place] [address]- 4317 August, [facility] [place] [facility] [address] [id number] [place] [address] Jul, [facility] [place] [facility] [address] [id number] [place] [address] 89[address] Jul, [facility] [place] [facility] [address] [id number] [place] [address]45 Jul, [facility] [place] [facility] [address] [id number] [place] [address] 2371 Jul, [facility] [place] [facility] [address] [id number] [place] [address]- 5[address] Jul, [facility] [place] [facility] [address] [id number] [place] [address]- 6781 Jul, [facility] [place] [facility] [address] [id number] [place] [address] Jul, [facility] [place] [facility] [address] [id number] [place] [address]- 8[address] Jul, [facility] [place] [facility] [address] [id number] [place] [address]- 3757 18 Jul, 2013 [facility] [place] [facility] [address] [id number] [place] [address]- 1404 18 Jul, 2013 [facility] [place] [facility] [address] [id number] [place] [address]- 4099 16 Jul, 2013 [facility] [place] [facility] [address] [id number] [place] [address]- 6962 Jul, [facility] [place] [facility] [address] [id number] [place] [address]- 0702 Jul, [facility] [place] [facility] [address] [id number] [place] [address]- 0908 Jul, [facility] [place] [facility] [address] [id number] [place] [address]- 6733 Jul, [facility] [place] [facility] [address] [id number] [place] [address]- 1560 Jul, [facility] [place] [facility] [address] [id number] [place] [address]- 6933 10 Jul, 2013 [facility] [place] [facility] [address] [id number] [place] [address]- 8989 05 Jul, 2013 [facility] [place] [facility] [address] [id number] [place] [address]- 2592 Jul, [facility] [place] [facility] [address] [id number] [place] [address]- 3068 Jul, [facility] [place] [facility] [address] [id number] [place] [address]- 1466 Jul, [facility] [place] [facility] [address] [id number] [place] [address]- 1625 Jul, [facility] [place] [facility] [address] [id number] [place] [address]- 3601 Jul, [facility] [place] [facility] [address] [id number] [place] [address]- 7937 Jun, [facility] [place] [facility] [address] [id number] [place] [address]- 6558 Jun, [facility] [place] [facility] [address] [id number] [place] [address]- 5646 Jun, [facility] [place] [facility] [address] [id number] [place] [address]- 4750 Jun, [facility] [place] [facility] [address] [id number] [place] [address]- 8578 Jun, [facility] [place] [facility] [address] [id number] [place] [address]- 2517 Jun, [facility] [place] [facility] [address] [id number] [place] [address]- 0858 Jun, [facility] [place] [facility] [address] [id number] [place] [address]- 1830 Jun, [facility] [place] [facility] [address] [id number] [place] [address]- 4245 Jun, [facility] [place] [facility] [address] [id number] [place] [address]- 9772 Jun, [facility] [place] [facility] [address] [id number] [place] [address]- 1833 Jun, [facility] [place] [facility] [address] [id number] [place] [address]- 3891 Jun, [facility] [place] [facility] [address] [id number] [place] [address]- 5556 May, [facility] [place] [facility] [address] [id number] [place] [address] May, [facility] [place] [facility] [address] [id number], [place] [address] 28[address] Apr, [facility] [address] [id number] [place] [address]- 7790 Apr, [facility] [place] [facility] [address] [id number] [place] [address]- 8958 Apr, [facility] [place] [facility] [address] [id number] [place] [address]- 6295 Apr, [facility] [place] [facility] [address] [id number] [place] [address]- 6002 Apr, [facility] [place] [facility] [address] [id number] [place] [address]- 4870 Apr, [facility] [place] [facility] [address] [id number] [place] [address]- 3418 Apr, [facility] [place] [facility] [address] [id number] [place] [address]- 9984 Apr, [facility] [place] [facility] [address] [id number] [place] [address]- 2153 Apr, [facility] [place] [facility] [address] [id number] [place] [address]- 8712 Apr, [facility] [place] [facility] [address] [id number] [place] [address]- 0864 Apr, [facility] [place] [facility] [address] [id number], [place] [address]- 1283 16 Mar, 2013 [facility] [place] [facility] [address] [id number] [place] [address]- 6815 Mar, [facility] [place] [facility] [address] [id number] [place] [address]- 8848 Mar, [facility] [place] [facility] [address] [id number] [place] [address]- 8189 16 Mar, 2013 [facility] [place] [facility] [address] [id number] [place] [address]- 0789 Feb, [facility] [place] [facility] [address] [id number] [place] [address]- 0858 Feb, [facility] [place] [facility] [address] [id number] [place] [address]- 9993 Feb, [facility] [place] [facility] [address] [id number] [place] [address]- 4076 Feb, [facility] [place] [facility] [address] [id number] [place] [address]- 3693 Feb, [facility] [place] [facility] [address] [id number] [place] [address]- 5422 Feb, [facility] [place] [facility] [address] [id number] [place] [address]- 0330 Feb, [facility] [place] [facility] [address] [id number] [place] [address]- 6057 Feb, [facility] [place] [facility] [address] [id number] [place] [address]- 5794 Feb, [facility] [place] [facility] [address] [id number] [place] [address]- 0244 Feb, [facility] [place] [facility] [address] [id number] [place] [address]- 8756 Feb, [facility] [place] [facility] [address] [id number] [place] [address]- 3406 Jan, [facility] [place] [facility] [address] [id number] [place] [address]- 8154 Jan, [facility] [place] [facility] [address] [id number] [place] [address]- 9720 Jan, [facility] [place] [facility] [address] [id number] [place] [address]- 6886 Jan, [facility] [place] [facility] [address] [id number] [place] [address]- 9278 Jan, [facility] [place] [facility] [address] [id number] [place] [address]- 1938 Jan, [facility] [place] [facility] [address] [id number] [place] [address]- 2512 03 Jan, 2013 [facility] [place] [facility] [address] [id number] [place] [address]- 8471 02 Jan, 2013 [facility] [place] [facility] [address] [id number] [place] [address]- 2562 30 Dec, 2012 [facility] [place] [facility] [address] [id number] [place] [address]- 0735 25 Dec, 2012 [facility] [place] [facility] [address] [id number] [place] [address]- 5510 18 Dec, 2012 [facility] [place] [facility] [address] [id number] [place] [address]- 1074 17 Dec, 2012 [facility] [place] [facility] [address] [id number] [place] [address]- 6732 17 Dec, 2012 [facility] [place] [facility] [address] [id number] [place] [address]- 0129 16 Dec, 2012 [facility] [place] [facility] [address] [id number] [place] [address]- 2292 13 Dec, 2012 [facility] [place] [facility] [address] [id number] [place] [address]- 4781 11 Dec, 2012 [facility] [place] [facility] [address] [id number] [place] [address]- 6964 05 Dec, 2012 [facility] [place] [facility] [address] [id number], [place] [address]- 3969 04 Dec, 2012 [facility] [place] [facility] [address] [id number] [place] [address]- 2742 30 Nov, 2012 [facility] [place] [facility] [address] [id number] [place] [address]- 1663 29 Nov, 2012 [facility] [place] [facility] [address] [id number] [place] [address]- 6116 Nov, [facility] [place] [facility] [address] [id number] [place] [address]- 3173 16 Nov, 2012 [facility] [place] [facility] [address] [id number] [place] [address]- 8792 14 Nov, 2012 [facility] [place] [facility] [address] [id number] [place] [address]- 9118 12 Nov, 2012 [facility] [place] [facility] [address] [id number] [place] [address]- 5624 05 Nov, 2012 [facility] [place] [facility] [address] [id number] [place] [address]- 7874 29 Oct, 2012 [facility] [place] [facility] [address] [id number] [place] [address]- 8100 Oct, [facility] [place] [facility] [address] [id number] [place] [address]- 5495 24 Oct, 2012 [facility] [place] [facility] [address] [id number] [place] [address]- 8953 17 Oct, 2012 [facility] [place] [facility] [address] [id number] [place] [address]- 0521 15 Oct, 2012 [facility] [place] [facility] [address] [id number] [place] [address]- 1159 Oct, [facility] [place] [facility] [address] [id number] [place] [address]- 6435 Sep, [facility] [place] [facility] [address] [id number] [place] [address]- 8380 28 Sep, 2012 [facility] [place] [facility] [address] [id number] [place] [address]- 2579 27 Sep, 2012 [facility] [place] [facility] [address] [id number] [place] [address]- 2362 14 Sep, 2012 [facility] [place] [facility] [address] [id number] [place] [address]- 8445 13 Sep, 2012 [facility] [place] [facility] [address] [id number] [place] [address]- 6526 10 Sep, 2012 [facility] [place] [facility] [address] [id number] [place] [address]- 0028 Sep, [facility] [address] [id number] [place] [address]- 4317 Sep, [facility] [address] [id number] [place] [address]- 8266 Sep, [facility] [address] [id number] [place] [address]- 3344 August, [facility] [address] [id number] [place] [address]- 9128 August, [facility] [address] [id number] [place] [address]- 5085 August, [facility] [address] [id number] [place] [address]- 5408 August, [facility] [address] [id number] [place] [address]- 7417 August, [facility] [address] [id number] [place] [address]- 4077 August, [facility] [address] [id number] [place] [address]- 1629 August, [facility] [address] [id number] [place] [address]- 8359 August, [facility] [address] [id number] [place] [address]- 0036 Jul, [facility] [address] [id number] [place] [address]- 7758 Jul, [facility] [address] [place] [id number] Jul [facility] [address] [id number] [place] [address]- 2546 Jun, [facility] [address] [id number] [place] [address]- 5972 Jun, [facility] [address] [id number] [place] [address]- 7755 Jun, [facility] [place] [facility] [address] [id number] [place] [address]- 1081 Jun, [facility] [address] [id number] [place] [address]- 3979 Jun, [facility] [place] [facility] [address] [id number] [place] [address]- 7712 Jun, [facility] [address] [id number] [place] [address]- 3708 May, [facility] [place] [facility] [address] [id number] [place] [address]- 0372 May, [facility] [address] [id number] [place] [address]- 7782 May, [facility] [address] [id number], [place] [address]- 9951 May, [facility] [address] [id number] [place] [address]- 5588 May, [facility] [address] [id number] [place] [address]- 7580 Apr, [facility] [place] [facility] [address] [id number], [place] [address]- 1381 Apr, [facility] [place] [facility] [address] [id number], [place] [address]- 6355 Apr, [facility] [place] [facility] [address] [id number] [place] [address]- 6860 Apr, [facility] [place] [facility] [address] [id number], [place] [address]- 2610 Apr, [facility] [place] [facility] [address] [id number] [place] [address]- 2409 Apr, [facility] [place] [facility] [address] [id number] [place] [address]- 3863 26 Mar, 2012 [facility] [place] [facility] [address] [id number] [place] [address]- 1466 20 Mar, 2012 [facility] [place] [facility] [address] [id number] [place] [address]- 0576 Mar, [facility] [place] [facility] [address] [id number] [place] [address]- 8876 Mar, [facility] [place] [facility] [address] [id number] [place] [address]- 2596 Mar, [facility] [place] [facility] [address] [id number] [place] [address]- 6282 18 Mar, 2012 [facility] [place] [facility] [address] [id number] [place] [address]- 1216 18 Mar, 2012 [facility] [place] [facility] [address] [id number] [place] [address]- 9280 10 Mar, 2012 [facility] [place] [facility] [address] [id number] [place] [address]- 7621 10 Mar, 2012 [facility] [place] [facility] [address] [id number] [place] [address]- 1281 05 Mar, 2012 [facility] [place] [facility] [address] [id number] [place] [address]- 7548 05 Mar, 2012 [facility] [place] [facility] [address] [id number] [place] [address]- 7835 Feb, [facility] [place] [facility] [address] [id number] [place] [address] 254 Feb, [facility] [place] [facility] [address] [id number] [place] [address]- 5566 Feb, [facility] [place] [facility] [address] [id number] [place] [address]- 2486 Feb, [facility] [place] [facility] [address] [id number] [place] [address]- 8810 Feb, [facility] [place] [facility] [address] [id number] [place] [address]- 5541 Feb, [facility] [place] [facility] [address] [id number] [place] [address]- 4678 Feb, [facility] [place] [facility] [address] [id number] [place] [address]- 7785 Feb, [facility] [place] [facility] [address] [id number] [place] [address], [place] [address]- 9347 Feb, [facility] [place] [facility] [address] [id number] [place] [address]- 3014 Feb, [facility] [place] [facility] [address] [id number] [place] [address]- 9929 Feb, [facility] [place] [facility] [address] [id number] [place] [address]- 1418 Jan, [facility] [place] [facility] [address] [id number] [place] [address]- 9745 Jan, [facility] [place] [facility] [address] [id number] [place] [address]- 3553 Jan, [facility] [place] [facility] [address] [id number] [place] [address]- 5738 Jan, [facility] [place] [facility] [address] [id number] [place] [address]- 3316 Jan, [facility] [place] [facility] [address] [id number] [place] [address]- 1271 Jan, [facility] [place] [facility] [address] [id number] [place] [address]- 0806 Jan, [facility] [place] [facility] [address] [id number] [place] [address]- 9986 24 Dec, 2011 [facility] [place] [facility] [address] [id number] [place] [address]- 9385 17 Dec, 2011 [facility] [place] [facility] [address] [id number] [place] [address]- 9509 13 Dec, 2011 [facility] [place] [facility] [address] [id number] [place] [address]- 9259 Dec, [facility] [place] [facility] [address] [id number] [place] [address]- 5560 Nov, [facility] [place] [facility] [address] [id number] [place] [address]- 6245 Nov, [facility] [place] [facility] [address] [id number] [place] [address]- 5089 Nov, [facility] [place] [facility] [address] [id number] [place] [address]- 8237 Nov, [facility] [place] [facility] [address] [id number] [place] [address]- 0103 Nov, [facility] [place] [facility] [address] [id number] [place] [address]- 7164 Nov, [facility] [place] [facility] [address] [id number] [place] [address]- 5908 Nov, [facility] [place] [facility] [address] [id number] [place] [address]- 5688 Nov, [facility] [place] [facility] [address] [id number] [place] [address]- 6018 Nov, [facility] [place] [facility] [address] [id number] [place] [address]- 2509 Nov, [facility] [place] [facility] [address] [id number] [place] [address]- 2358 Nov, [facility] [place] [facility] [address] [id number] [place] [address]- 9643 Nov, [facility] [place] [facility] [address] [id number] [place] [address]- 7015 Nov, [facility] [place] [facility] [address] [id number] [place] [address]- 8993 Oct, [facility] [place] [facility] [address] [id number] [place] [address]- 4458 Oct, 2011 [facility] [address] [id number] [place] [address]- 5809 Oct, 2011 [facility] [place] [facility] [address] [id number] [place] [address]- 9646 Oct, 2011 [facility] [address] [id number] [place] [address]- 1090 Oct, [facility] [place] [facility] [address] [id number] [place] [address]- 8365 Oct, [facility] [place] [facility] [address] [id number] [place] [address]- 2947 Oct, [facility] [place] [facility] [address] [id number] [place] [address]- 5883 Oct, [facility] [place] [facility] [address] [id number] [place] [address]- 7183 Oct, [facility] [place] [facility] [address] [id number] [place] [address]- 3219 Sep, [facility] [place] [facility] [address] [id number] [place] [address]- 3901 Sep, [facility] [place] [facility] [address] [id number] [place] [address]- 7514 Sep, [facility] [place] [facility] [address] [id number] [place] [address]- 9633 Sep, [facility] [place] [facility] [address] [id number] [place] [address]- 2694 Sep, [facility] [place] [facility] [address] [id number] [place] [address]- 6850 Sep, [facility] [place] [facility] [address] [id number] [place] [address] Sep, [facility] [place] [facility] [address] [id number] [place] [address] Sep, [facility] [address] [id number], [place] [address] August, [facility] [address] [id number], [place] [address] August, [facility] [address] [id number], [place] [address] August, [facility] [address] [id number], [place] [address] August, [facility] [address] [id number], [place] [address] August, [facility] [address] [id number], [place] [address] August, [facility] [address] [id number], [place] [address] August, [facility] [address] [id number], [place] [address] August, [facility] [address] [facility] [id number][place] [address] August, [facility] [address] [facility] [id number], [place] [address] August, [facility] [address] [facility] [id number], [place] [address] August, [facility] [address] [facility] [id number], [place] [address] August, [facility] [address] [facility] [id number], [place] [address] Oct, IMMUNIZATIONS No Known Immunizations SOCIAL HISTORY Never Assessed REASON FOR VISIT sore on stomach, pt states she was seen at a clinic by the hospital and told she had an active staff and MRSA infection but was not prescribed any antibiotics [facility] PLAN OF CARE Activity Details Follow Up prn Reason: VITAL SIGNS Height 63 in 2017-09-30 Weight 393.2 lbs 2017-09-30 Temperature 99.3 degrees Fahrenheit 2017-09-30 Heart Rate 120 bpm 2017-09-30 Respiratory Rate 32 2017-09-30 BMI 69.64 kg/m2 2017-09-30 MEDICATIONS Medication Instructions Dosage Frequency Start Date End Date Duration Status Lotrisone 1-0.05 % Externally Twice a day 1 application to affected area 12h Active Cyclobenzaprine HCl 10 MG Orally Three times a day 1 tablet as needed 8h Active Excedrin Extra Strength 250-250-65 MG Orally Once a day 2 tablets 24h Sep, Sep, 7 days Active Triamcinolone Acetonide 0.025 % Externally Twice a day 1 application to affected area as needed 12h Jul, Active Atorvastatin Calcium 40 MG Orally Once a day 1 tablet 24h Active Ranitidine HCl 150 MG Orally twice a day 1 tablet 12h Active Bactrim DS 800-160 MG Orally twice daily 1 tablet Sep, Sep, 10 day(s) Active Womens One Daily - Active Cetirizine HCl 10 mg Orally Once a day 1 tablet 24h 90 Active Montelukast Sodium 10 MG Orally Once a day 1 tablet in the evening 24h Active Sucralfate 1 GM Orally 4 times a day 1 tablet before meals and at bedtime 6h 30 days Active Metformin HCl 1000 MG Orally Twice a day 1 tablet with meals 12h 30 days Active Nexium 40 mg Orally Once a day 1 capsule 24h Jul, 30 day(s) Active Lyrica 150 MG Orally twice a day 2 capsules 12h 30 days Active Potassium Chloride Eugenia ER 10 MEQ Orally Once a day 1 tablet with food 24h Active Clindamycin Phosphate 1 % Externally Twice a day 1 application to affected area 12h August, Active Mirtazapine 30 MG Orally Once a day 1 tablet at bedtime 24h May, 30 day(s) Active Guaifenesin 400 MG Orally every 4 hrs 1 tablet as needed 4h May, Active Triamcinolone Acetonide 0.1 % Externally Twice a day 1 application to affected area as needed 12h Active Gemfibrozil 600 MG Orally Twice a day 1 tablet 12h Active Ondansetron HCl 4 MG Orally 3 times a day 1 tablet as needed 8h Active Benadryl Allergy 25 MG Orally 2 times a day 1 capsule 12h Active Lasix 40 mg Orally Once a day 1 tablet 24h Active RESULTS No Results PROCEDURES Procedure Date Ordered Result Body Site CULTURE BACTERIA ANAEROBIC September 30, 2017 CULTURE, BACTERIA, OTHER September 30, 2017 INSTRUCTIONS MEDICATIONS ADMINISTERED No Known Medications [...] Hospitalization History suicidal ideations-[place] 12/28 Hospitalization History hypoxia--[facility] 02/13/2016 Hospitalization History shortness of breath at june 2016 Hospitalization History Shortness of breath at august 2016 Hospitalization History SOB, chest pain at 12/2016
[2018-02-11 13:24] VITALS: BP 156/95
--- OUTSIDE RECORDS SUMMARY | 2018-02-11 13:24 | XMS REPORT ---
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 F39 [facility] [id number] [place] [address] 48085- 5726 Jun, [facility] [id number] [place] [address] 43927- 1378 Jun, Unspecified mood [affective] disorder F39 [facility] [address], [place] [address]- 7211 Jun, Unspecified mood [affective] disorder F39 [facility] [address], [place] [address]- 4724 Jun, Unspecified mood [affective] disorder F39 [facility] [id number] [place] [address] 11183- 9712 Jun, Unspecified mood [affective] disorder F39 [facility] [id number] [place] [address] 82440- 8733 Jun, [facility] [id number] [place] [address] 18384- 4847 Jun, Type 2 diabetes mellitus with hyperglycemia E11.65 ; Oxygen dependent Z99.81 ; Folliculitis L73.9 ; Dysuria R30.0 ; Encounter for contraceptive management Z30.9 and Dog bite W54.0XXA [facility] [id number] [place] [address] 62040- 5579 Jun, Unspecified mood [affective] disorder F39 [facility] [id number] [place] [address] 25213- 3155 Jun, Type 2 diabetes mellitus with hyperglycemia E11.65 [facility] [id number] [place] [address] 88651- 5449 May, Unspecified mood [affective] disorder F39 [facility] [address], [place] [address]- 7691 May, [facility] [id number] [place] [address] 38490- 1657 May, [facility] [address], [place] [address]- 6931 May, [facility] [id number] [place] [address] 06618- 3723 Apr, [facility] [address], [place] [address]- 4147 Apr, Unspecified mood [affective] disorder F39 [facility] [id number] [place] [address] 71526- 2324 Apr, [facility] [id number] [place] [address] 94895- 7795 Apr, [facility] [id number] [place] [address] 71736- 9743 Apr, [facility] [id number] [place] [address] 84743- 6584 Apr, Dysuria R30.0 and Well woman exam (no gynecological exam) Z00.00 [place] [id number] [place] [address] 38427- 5524 Mar, [facility] [id number] [place] [address] 29956- 3479 Mar, [facility] [id number] [place] [address] [id number] Mar, Dental examination Z01.20 [place] [id number] [place] [address] 23919- 9597 Mar, Chronic diarrhea K52.9 ; Intractable vomiting with nausea, vomiting of unspecified type R11.2 ; Cellulitis, unspecified cellulitis site L03.90 ; Type 2 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 and Postinflammatory hyperpigmentation L81.0 [facility] [id number] [place] [address] 86752- 0646 Mar, Unspecified mood [affective] disorder F39 [facility] [id number] [place] [address] 17047- 2968 Mar, Unspecified mood [affective] disorder F39 [facility] [id number] [place] [address] 47255- 7893 Mar, [facility] [id number], [place] [address]- 2595 Mar, [facility] [id number], [place] [address]- 2329 Mar, [facility] [id number], [place] [address]- 4234 Mar, [facility] [id number] [place] [address] 92716- 3808 Mar, [facility] [address] [facility] [id number], [place] [address]- 9829 Mar, [facility] [id number] [place] [address] 49058- 7513 Feb, Unspecified mood [affective] disorder F39 [facility] [id number] [place] [address] 48512- 2084 Feb, [facility] [id number], [place] [address]- 3913 Feb, [facility] [address], [place] [address]- 7088 Jan, Unspecified mood [affective] disorder F39 [facility] [place] [address] [facility] [id number] [id number] Jan, Encounter for dental examination Z01.20 [facility] [address], [place] [address]- 8731 Jan, [facility] [id number], [place] [address]- 0707 Jan, [facility] [address], [place] [address]- 6768 Jan, [facility] [id number], [place] [address]- 0246 Jan, [facility] [address], [place] [address]- 1809 Jan, [facility] [id number] [place] [address] 26641- 9910 08 Jan, 2015 Abdominal abscess K65.1 and Dental caries K02.9 [facility] [id number] [place] [address] 58572- 9025 Jan, [facility] [id number] [place] [address] 57875- 4704 30 Dec, 2014 Diabetes with neurological manifestations, type II or unspecified type, not stated as uncontrolled 250.60 ; Essential hypertension, benign 401.1 ; Concussion 850.9 and Skin texture changes 782.8 [facility] [address] 03920- 8981 Dec, [facility] [id number] [place] [address] 84138- 3253 24 Dec, 2014 [facility] [address] 79190- 6456 Dec, [facility] [id number] [place] [address] 80966- 0872 Dec, [facility] [id number] [place] [address] 06890- 5596 17 Dec, 2014 Affective disorder 296.90 [facility] [id number] [place] [address] 67656- 9022 14 Dec, 2014 [facility] [id number] [place] [address] 79645- 2542 10 Dec, 2014 Affective disorder 296.90 [facility] [id number] [place] [address] 77858- 3749 Dec, [facility] [id number] [place] [address] 19900- 6299 Dec, [facility] [id number] [place] [address] 39119- 8115 Dec, [facility] [address] [place] [address]- 2718 Dec, [facility] [id number] [place] [address] 42907- 7605 Nov, Affective disorder 296.90 [facility] [id number] [place] [address] 16661 2543 Nov, [facility] [id number] [place] [address] 08814- 8976 Nov, Affective disorder 296.90 [facility] [id number] [place] [address] 34510 2546 Nov, Diarrhea 787.91 [facility] [id number] [place] [address] 56136- 1406 Nov, [facility] [id number] [place] [address] 62681- 6090 Nov, Diarrhea 787.91 [facility] [id number] [place] [address] 00425 2540 Nov, Diarrhea 787.91 and Hyperlipidemia 272.4 [facility] [id number] [place] [address] 71548- 5257 Nov, Diarrhea 787.91 [facility] [id number] [place] [address] 41738 2543 Nov, Affective disorder 296.90 [facility] [id number] [place] [address] 45165 254 Nov, Affective disorder 296.90 [facility] [address], [place] [address]- 3468 Nov, Affective disorder 296.90 [facility] [id number] [place] [address] 68087- 4074 Nov, [facility] [id number] [place] [address] 83396- 3133 Nov, [facility] [id number] [place] [address] 26172- 6513 Nov, [facility] [address], [place] [address]- 3455 Nov, Episodic mood disorder 296.90 [facility] [address], [place] [address]- 7590 Nov, [facility] [id number] [place] [address] 25894- 1679 Nov, [facility] [id number] [place] [address] 61105- 8272 Nov, [facility] [id number] [place] [address] 92113- 7864 Nov, [facility] [address], [place] [address]- 3384 Nov, [facility] [id number] [place] [address] 24239- 1438 Nov, Lymphedema 457.1 ; Hyperlipidemia 272.4 ; Essential hypertension, benign 401.1 and Numbness of toes 782.0 [facility] [address], [place] [address]- 7264 Nov, Episodic mood disorder 296.90 [facility] [address], [place] [address]- 9154 Oct, [facility] [address], [place] [address]- 9247 Oct, [facility] [address], [place] [address]- 2358 Oct, [facility] [address], [place] [address]- 1031 Oct, [facility] [address], [place] [address]- 0581 Oct, [facility] [address], [place] [address]- 3677 Oct, [facility] [address] [facility] [id number] [place] [address]- 4228 Oct, 2014 [facility] [address] [facility] [id number] [place] [address]- 7895 Oct, 2014 [facility] [address] [facility] [id number] [place] [address]- 7887 Oct, Episodic mood disorder 296.90 [facility] [address] [facility] [id number] [place] [address]- 3483 30 Sep, 2014 [facility] [address] [facility] [id number] [place] [address]- 6154 29 Sep, 2014 [facility] [address] [facility] [id number] [place] [address]- 4884 Sep, [facility] [address] [facility] [id number] [place] [address]- 9736 Sep, [facility] [address] [facility] [id number] [place] [address]- 6449 Sep, [facility] [address] [facility] [id number], [place] [address]- 3925 Sep, Episodic mood disorder 296.90 [facility] [address] [facility] [id number] [place] [address]- 6308 Sep, Unspecified episodic mood disorder 296.90 [facility] [address] [facility] [id number], [place] [address] 18 Sep, 2014 [facility] [address] [facility] [id number], [place] [address] 18 Sep, 2014 [facility] [address] [facility] [id number] [place] [address] 16 Sep, 2014 Episodic mood disorder 296.90 [facility] [address] [facility] [id number][place] [address] 15 Sep, 2014 [facility] [address] [id number], [place] [address] Sep, [facility] [id number], [place] [address] Sep, [facility] [id number] [place] [address] Sep, Hematemesis 578.0 and Vomiting 787.03 [facility] [id number] [place] [address] Sep, Episodic mood disorder 296.90 [facility] [id number], [place] [address] Sep, [facility] [id number] [place] [address] Sep, [facility] [id number], [place] [address] Sep, Diabetes mellitus without mention of complication, type II or unspecified type, not stated as uncontrolled 250.00 and Other chronic pain 338.29 [facility] [id number], [place] [address] Sep, Episodic mood disorder 296.90 [facility] [id number] [place] [address] Sep, [facility] [id number], [place] [address] Sep, Episodic mood disorder 296.90 [facility] [id number], [place] [address] Sep, [facility] [id number], [place] [address] August, [facility] [id number], [place] [address] August, [facility] [address] [id number], [place] [address] August, Episodic mood disorder 296.90 [facility] [id number] [place] [address] August, [facility] [address] [facility] [id number], [place] [address] August, Unspecified episodic mood disorder 296.90 [facility] [address] [facility] [id number] [place] [address] August, Vomiting 787.03 [facility] [address] [facility] [id number] [place] [address] August, [facility] [address] [facility] [id number] [place] [address] August, [facility] [address] [facility] [id number] [place] [address] August, [facility] [id number] [address] August, [facility] [facility] [address] [id number] [address] August, [facility] [address] [id number] [address] Jul, [facility] [address] [id number], [place] [address] Jul, [facility] [address] [id number], [place] [address] Jul, [facility] [address] [id number], [place] [address] Jun, [facility] [address] [facility] [id number] [place] [address] Jun, [facility] [address] [facility] [id number], [place] [address] Jun, [facility] [place] [facility] [address] [facility] [id number], [place] [address] Jun, [facility] [address] [id number], [place] [address] 30 Jun, 2014 [facility] [place] [facility] [address] [id number] [place] [address] Jun, [facility] [place] [facility] [address] [id number] [place] [address] 8310 Jun, [facility] [place] [facility] [address] [id number] [place] [address]- 4800 Jun, [facility] [place] [facility] [address] [id number] [place] [address]- 3055 Jun, [facility] [place] [facility] [address] [id number] [place] [address]- 9071 Jun, [facility] [place] [facility] [address] [id number] [place] [address]- 3845 Jun, [facility] [place] [facility] [address] [id number] [place] [address]- 2106 Jun, [facility] [place] [facility] [address] [id number] [place] [address]- 3044 Jun, [facility] [place] [facility] [address] [id number] [place] [address]- 7786 Jun, [facility] [place] [facility] [address] [id number] [place] [address]- 9156 Jun, [facility] [place] [facility] [address] [id number] [place] [address]- 1726 Jun, [facility] [place] [facility] [address] [id number] [place] [address]- 0158 Jun, [facility] [place] [facility] [address] [id number] [place] [address]- 4334 Jun, [facility] [place] [facility] [address] [id number] [place] [address]- 2764 Jun, [facility] [place] [facility] [address] [id number] [place] [address]- 0980 Jun, [facility] [place] [facility] [address] [id number] [place] [address]- 3391 21 Jun, 2014 [facility] [place] [facility] [address] [id number] [place] [address]- 9986 20 Jun, 2014 [facility] [place] [facility] [address] [id number] [place] [address]- 2816 20 Jun, 2014 [facility] [place] [facility] [address] [id number] [place] [address]- 2026 20 Jun, 2014 [facility] [place] [facility] [address] [id number] [place] [address]- 7728 20 Jun, 2014 [facility] [place] [facility] [address] [id number] [place] [address]- 8151 19 Jun, 2014 [facility] [place] [facility] [address] [id number] [place] [address]- 4934 19 Jun, 2014 [facility] [place] [facility] [address] [id number] [place] [address]- 8926 18 Jun, 2014 [facility] [place] [facility] [address] [id number] [place] [address]- 7245 18 Jun, 2014 [facility] [place] [facility] [address] [id number] [place] [address]- 9568 17 Jun, 2014 [facility] [place] [facility] [address] [id number] [place] [address]- 8315 17 Jun, 2014 [facility] [place] [facility] [address] [id number] [place] [address]- 0935 16 Jun, 2014 [facility] [place] [facility] [address] [id number] [place] [address]- 5275 16 Jun, 2014 [facility] [place] [facility] [address] [id number] [place] [address]- 8816 16 Jun, 2014 [facility] [place] [facility] [address] [id number] [place] [address]- 9616 16 Jun, 2014 [facility] [place] [facility] [address] [id number] [place] [address]- 3764 Jun, [facility] [place] [facility] [address] [id number] [place] [address]- 1503 16 Jun, 2014 [facility] [place] [facility] [address] [id number] [place] [address]- 0192 Jun, [facility] [place] [facility] [address] [id number] [place] [address]- 1130 Jun, [facility] [place] [facility] [address] [id number] [place] [address]- 9511 Jun, [facility] [place] [facility] [address] [id number] [place] [address]- 5410 Jun, [facility] [place] [facility] [address] [id number] [place] [address]- 4126 Jun, [facility] [place] [facility] [address] [id number] [place] [address]- 4991 Jun, 2014 [facility] [place] [facility] [address] [id number] [place] [address]- 4506 Jun, [facility] [place] [facility] [address] [id number] [place] [address]- 0161 Jun, [facility] [place] [facility] [address] [id number] [place] [address]- 3899 Jun, [facility] [place] [facility] [address] [id number], [place] [address]- 6918 Jun, [facility] [place] [facility] [address] [id number], [place] [address]- 8941 Jun, 2014 [facility] [place] [facility] [address] [id number] [place] [address]- 3008 Jun, [facility] [place] [facility] [address] [id number] [place] [address]- 6729 Jun, [facility] [place] [facility] [address] [id number] [place] [address]- 4095 Jun, [facility] [place] [facility] [address] [id number] [place] [address]- 2660 Jun, [facility] [place] [facility] [address] [id number] [place] [address]- 7404 Jun, [facility] [place] [facility] [address] [facility] [id number] [place] [address]- 1973 Jun, [facility] [place] [facility] [address] [facility] [id number] [place] [address]- 3854 Jun, [facility] [place] [facility] [address] [id number] [place] [address]- 5955 Jun, [facility] [place] [facility] [address] [id number] [place] [address]- 0287 Jun, [facility] [place] [facility] [address] [facility] [id number] [place] [address]- 9389 May, [facility] [place] [facility] [address] [facility] [id number] [place] [address]- 9233 May, 2014 [facility] [place] [facility] [address] [facility] [id number] [place] [address]- 9430 May, [facility] [place] [facility] [address] [id number] [address]- 2398 May, [facility] [place] [facility] [address] [facility] [id number] [place] [address]- 7184 May, [facility] [place] [facility] [address] [facility] [id number] [place] [address]- 7312 May, 2014 [facility] [place] [facility] [address] [facility] [id number] [place] [address]- 2542 May, [facility] [place] [facility] [address] [facility] [id number] [place] [address]- 9768 May, 2014 [facility] [place] [facility] [address] [facility] [id number], [place] [address]- 0489 May, 2014 [facility] [place] [facility] [address] [facility] [id number], [place] [address]- 9774 May, 2014 [facility] [place] [facility] [address] [facility] [id number] [place] [address]- 3942 18 May, 2014 [facility] [place] [facility] [address] [facility] [id number] [place] [address]- 2656 18 May, 2014 [facility] [place] [facility] [address] [facility] [id number] [place] [address]- 0216 13 May, 2014 [facility] [place] [facility] [address] [facility] [id number] [place] [address]- 2540 13 May, 2014 [facility] [place] [facility] [address] [facility] [id number] [place] [address]- 0453 11 May, 2014 [facility] [place] [facility] [address] [id number] [address]- 6389 May, 2014 [facility] [place] [facility] [address] [id number] [address]- 2308 May, 2014 [facility] [place] [facility] [address] [facility] [id number] [place] [address]- 7956 May, 2014 [facility] [place] [facility] [address] [facility] [id number] [place] [address]- 8395 May, 2014 [facility] [place] [facility] [address] [facility] [id number] [place] [address]- 1558 May, 2014 [facility] [place] [facility] [address] [id number] [address]- 2546 May, 2014 [facility] [place] [facility] [address] [facility] [id number], [place] [address]- 2548 May, 2014 [facility] [place] [facility] [address] [facility] [id number] [place] [address]- 4235 May, 2014 [facility] [place] [facility] [address] [facility] [id number], [place] [address]- 9741 05 May, 2014 [facility] [place] [facility] [id number] [place] [address]- 6981 May, [facility] [place] [facility] [address] [id number] [place] [address]- 7574 May, [facility] [place] [facility] [address] [id number] [place] [address]- 4937 May, [facility] [place] [facility] [address] [id number] [place] [address]- 5963 Apr, [facility] [place] [facility] [address] [id number] [place] [address]- 8554 Apr, [facility] [place] [facility] [address] [id number] [place] [address]- 8965 Apr, [facility] [place] [facility] [address] [id number] [place] [address]- 4017 Apr, [facility] [place] [facility] [address] [id number] [place] [address]- 3901 Apr, [facility] [place] [facility] [address] [id number] [place] [address]- 3051 Apr, [facility] [place] [facility] [address] [id number] [place] [address]- 6425 Apr, [facility] [place] [facility] [address] [id number] [place] [address]- 3437 Apr, [facility] [place] [facility] [address] [id number], [place] [address]- 1547 Apr, [facility] [place] [facility] [address] [id number], [place] [address]- 9942 Apr, [facility] [place] [facility] [address] [id number] [place] [address]- 4926 Apr, [facility] [place] [facility] [address] [id number], [place] [address]- 1095 Apr, [facility] [place] [facility] [address] [id number] [place] [address]- 4351 Apr, [facility] [place] [facility] [address] [id number] [place] [address]- 7346 Apr, [facility] [address] [id number] [place] [address]- 0101 Apr, [facility] [place] [facility] [address] [id number] [place] [address]- 9901 Apr, [facility] [place] [facility] [address] [id number] [place] [address]- 5363 Apr, [facility] [place] [facility] [address] [id number] [place] [address]- 9452 Apr, [facility] [place] [facility] [address] [id number] [place] [address]- 1589 Apr, [facility] [place] [facility] [address] [id number] [place] [address]- 7919 Apr, [facility] [address] [id number] [place] [address]- 2312 Mar, [facility] [place] [facility] [address] [id number] [place] [address]- 0513 Mar, [facility] [place] [facility] [address] [id number] [place] [address]- 2431 Mar, [facility] [place] [facility] [address] [id number] [place] [address]- 9899 Mar, [facility] [place] [facility] [address] [id number] [place] [address]- 6840 Mar, [facility] [place] [facility] [address] [id number] [place] [address]- 6643 Mar, [facility] [place] [facility] [address] [id number] [place] [address]- 7955 Mar, [facility] [place] [facility] [address] [id number] [place] [address]- 1536 18 Mar, 2014 [facility] [place] [facility] [address] [id number] [place]478 15 Mar, 2014 [facility] [place] [facility] [address] [id number] [place] [address]- 5693 15 Mar, 2014 [facility] [place] [facility] [address] [id number] [place] [address]- 2076 Mar, [facility] [place] [facility] [address] [id number] [place] [address]- 5072 Mar, [facility] [place] [facility] [address] [id number] [place] [address]- 4927 Mar, [facility] [place] [facility] [address] [id number] [place] [address]- 5443 Mar, [facility] [place] [facility] [address] [id number] [place] [address]- 7535 Mar, [facility] [place] [facility] [address] [id number] [place] [address]- 8507 Mar, [facility] [place] [facility] [address] [id number] [place] [address]- 1967 Feb, [facility] [place] [facility] [address] [id number] [place] [address]- 2233 Feb, [facility] [place] [facility] [address] [id number] [place] [address]- 3309 Feb, [facility] [place] [facility] [address] [id number] [place] [address]- 1845 Feb, [facility] [place] [facility] [address] [id number] [place] [address]- 0279 Feb, [facility] [place] [facility] [address] [id number] [place] [address]- 1401 Feb, [facility] [place] [facility] [address] [id number] [place] [address]- 3860 Feb, [facility] [place] [facility] [address] [id number] [place] [address]- 1960 18 Feb, 2014 [facility] [place] [facility] [address] [id number], [place] [address]- 8527 18 Feb, 2014 [facility] [place] [facility] [address] [id number] [place] [address]- 9266 17 Feb, 2014 [facility] [place] [facility] [address] [id number] [place] [address]- 1567 17 Feb, 2014 [facility] [place] [facility] [address] [id number] [place] [address]- 3711 17 Feb, 2014 [facility] [place] [facility] [address] [id number] [place] [address]- 8143 17 Feb, 2014 [facility] [place] [facility] [address] [id number] [place] [address]- 8120 Feb, [facility] [place] [facility] [address] [id number] [place] [address]- 2495 Feb, [facility] [place] [facility] [address] [id number] [place] [address]- 8861 Feb, [facility] [place] [facility] [address] [id number] [place] [address]- 6119 Feb, [facility] [place] [facility] [address] [id number] [place] [address]- 5558 Feb, [facility] [place] [facility] [address] [id number] [place] [address]- 3165 Feb, [facility] [place] [facility] [address] [id number], [place] [address]- 8215 Feb, [facility] [place] [facility] [address] [id number], [place] [address]- 7258 Feb, [facility] [place] [facility] [address] [id number] [place] [address]- 2739 Jan, [facility] [place] [facility] [address] [id number] [place] [address]- 5658 Jan, [facility] [place] [facility] [address] [id number] [place] [address]- 0523 Jan, [facility] [place] [facility] [address] [id number] [place] [address]- 2779 30 Jan, 2013 [facility] [place] [facility] [address] [id number] [place] [address]- 9412 24 Jan, 2014 [facility] [place] [facility] [address] [id number] [place] [address]- 1131 24 Jan, 2014 [facility] [place] [facility] [address] [id number] [place] [address]- 7671 Jan, [facility] [place] [facility] [address] [id number] [place] [address]- 6433 21 Jan, 2014 [facility] [place] [facility] [address] [id number] [place] [address]- 8230 20 Jan, 2014 [facility] [place] [facility] [address] [id number] [place] [address]- 3142 20 Jan, 2014 [facility] [place] [facility] [address] [id number] [place] [address]- 6883 17 Jan, 2014 [facility] [place] [facility] [address] [id number] [place] [address]- 7977 17 Jan, 2014 [facility] [place] [facility] [address] [id number] [place] [address]- 6669 17 Jan, 2014 [facility] [place] [facility] [address] [id number] [place] [address]- 4294 17 Jan, 2014 [facility] [place] [facility] [address] [id number] [place] [address]- 0001 15 Jan, 2014 [facility] [place] [facility] [address] [id number] [place] [address]- 2745 15 Jan, 2014 [facility] [place] [facility] [address] [id number] [place] [address]- 2575 14 Jan, 2014 [facility] [place] [facility] [address] [id number] [place] [address]- 0788 14 Jan, 2013 [facility] [place] [facility] [address] [id number] [place] [address]- 2057 Jan, [facility] [place] [facility] [address] [id number] [place] [address]- 5444 Jan, [facility] [place] [facility] [address] [id number] [place] [address]- 4274 Jan, [facility] [place] [facility] [address] [id number] [place] [address]- 1611 Jan, [facility] [place] [facility] [address] [id number] [place] [address]- 2622 Jan, [facility] [place] [facility] [address] [id number] [place] [address]- 9972 Jan, [facility] [place] [facility] [address] [id number] [place] [address]- 3561 Jan, [facility] [place] [facility] [address] [id number] [place] [address]- 5031 25 Dec, 2013 [facility] [place] [facility] [address] [id number], [place] [address]- 0256 25 Dec, 2013 [facility] [place] [facility] [address] [id number] [place] [address]- 1625 23 Dec, 2013 [facility] [place] [facility] [address] [id number], [place] [address]- 9461 23 Dec, 2013 [facility] [place] [facility] [address] [id number], [place] [address]- 6307 19 Dec, 2013 [facility] [place] [facility] [address] [id number], [place] [address] 19 Dec, 2013 [facility] [place] [facility] [address] [id number] [place] [address] 17 Dec, 2013 [facility] [place] [facility] [address] [id number] [place] [address] 3519 17 Dec, 2013 [facility] [place] [facility] [address] [id number], [place] [address] 09 Dec, 2013 [facility] [place] [facility] [address] [id number], [place] [address] 09 Dec, 2013 [facility] [place] [facility] [address] [id number] [place] [address] 08 Dec, 2013 [facility] [place] [facility] [address] [id number] [place] [address] Dec, 2013 [facility] [place] [facility] [address] [id number] [place] [address]65 Dec, 2013 [facility] [place] [facility] [address] [id number] [place] [address] Dec, 2013 [facility] [place] [facility] [address] [id number] [place] [address] Dec, 2013 [facility] [place] [facility] [address] [id number] [place] [address] 8049 Dec, 2013 [facility] [place] [facility] [address] [id number] [place] [address]- 7015 Dec, 2013 [facility] [place] [facility] [address] [id number] [place] [address]- 1013 Dec, 2013 [facility] [place] [facility] [address] [id number] [place] [address] 2354 Nov, [facility] [place] [facility] [address] [id number] [place] [address] 2933 Nov, [facility] [place] [facility] [address] [id number] [place] [address] 4818 Nov, [facility] [place] [facility] [address] [id number] [place] [address]- 5908 Nov, [facility] [place] [facility] [address] [id number] [place] [address]- 7035 Nov, [facility] [place] [facility] [address] [id number] [place] [address] Nov, [facility] [place] [facility] [address] [id number] [place] [address]- [address]237 Nov, [facility] [place] [facility] [address] [id number] [place] [address]- 6635 Nov, [facility] [place] [facility] [address] [id number] [place] [address]- 3042 Nov, [facility] [place] [facility] [address] [id number] [place] [address]- 4346 Nov, [facility] [place] [facility] [address] [id number] [place] [address] 8460 Nov, [facility] [place] [facility] [address] [id number] [place] [address] 1346 Nov, [facility] [place] [facility] [address] [id number] [place] [address] 6472 Oct, [facility] [place] [facility] [address] [id number] [place] [address] 6232 Oct, [facility] [place] [facility] [address] [id number] [place] [address] 0177 Oct, [facility] [place] [facility] [address] [id number] [place] [address]- 7865 Oct, [facility] [place] [facility] [address] [id number] [place] [address] 5013 Oct, [facility] [place] [facility] [address] [id number] [place] [address] 8995 Oct, [facility] [place] [facility] [address] [id number] [place] [address] 0519 Oct, [facility] [place] [facility] [address] [id number] [place] [address] 2450 Oct, [facility] [place] [facility] [address] [id number] [place] [address] 5922 Oct, [facility] [place] [facility] [address] [id number] [place] [address]- [address] Oct, [facility] [place] [facility] [address] [id number] [place] [address]- 9233 16 Oct, 2013 [facility] [place] [facility] [address] [id number] [place] [address] 3203 16 Oct, 2013 [facility] [place] [facility] [address] [id number] [place] [address]- 0262 14 Oct, 2013 [facility] [place] [facility] [address] [id number] [place] [address]- 2599 14 Oct, 2013 [facility] [place] [facility] [address] [id number] [place] [address]- 9942 13 Oct, 2013 [facility] [place] [facility] [address] [id number] [place] [address]- 7826 13 Oct, 2013 [facility] [place] [facility] [address] [id number] [place] [address]- 5667 Oct, [facility] [place] [facility] [address] [id number] [place] [address]- 3693 27 Sep, 2013 [facility] [place] [facility] [address] [id number] [place] [address]- 0153 27 Sep, 2013 [facility] [place] [facility] [address] [id number] [place] [address] 4326 20 Sep, 2013 [facility] [place] [facility] [address] [id number] [place] [address]- 7103 20 Sep, 2013 [facility] [place] [facility] [address] [id number] [place] [address]- 9743 18 Sep, 2013 [facility] [place] [facility] [address] [id number] [place] [address]- 7921 18 Sep, 2013 [facility] [place] [facility] [address] [id number] [place] [address]- 4937 17 Sep, 2013 [facility] [place] [facility] [address] [id number] [place] [address]- 3917 17 Sep, 2013 [facility] [place] [facility] [address] [id number] [place] [address]- 9662 11 Sep, 2013 [facility] [place] [facility] [address] [id number] [place] [address]- 6701 11 Sep, 2013 [facility] [place] [facility] [address] [id number] [place] [address]- 6620 Sep, [facility] [place] [facility] [address] [id number] [place] [address] 7800 Sep, [facility] [place] [facility] [address] [id number] [place] [address]- 2174 Sep, [facility] [place] [facility] [address] [id number] [place] [address]- 9994 Sep, [facility] [place] [facility] [address] [id number] [place] [address]- 0071 Sep, [facility] [place] [facility] [address] [id number] [place] [address]- 5344 Sep, [facility] [place] [facility] [address] [id number] [place] [address]- 1237 Sep, [facility] [place] [facility] [address] [id number] [place] [address]- 5945 Sep, [facility] [place] [facility] [address] [id number] [place] [address]- 4386 Sep, [facility] [place] [facility] [address] [id number] [place] [address]- 0806 Sep, [facility] [place] [facility] [address] [id number] [place] [address]- 7825 Sep, [facility] [place] [facility] [address] [id number] [place] [address]- 9868 Sep, [facility] [place] [facility] [address] [id number] [place] [address]- 3542 August, [facility] [place] [facility] [address] [id number] [place] [address]- 0859 August, [facility] [place] [facility] [address] [id number] [place] [address]- 7244 August, [facility] [place] [facility] [address] [id number] [place] [address]- 1629 August, [facility] [place] [facility] [address] [id number] [place] [address]- 2864 August, [facility] [place] [facility] [address] [id number] [place] [address]- 5325 August, [facility] [place] [facility] [address] [id number] [place] [address]- 7068 August, [facility] [place] [facility] [address] [id number] [place] [address]- 4455 August, [facility] [place] [facility] [address] [id number] [place] [address] August, [facility] [place] [facility] [address] [id number] [place] [address] August, [facility] [place] [facility] [address] [id number] [place] [address] 6960 August, [facility] [place] [facility] [address] [id number] [place] [address] Jul, [facility] [place] [facility] [address] [id number] [place] [address] Jul, [facility] [place] [facility] [address] [id number] [place] [address] Jul, [facility] [place] [facility] [address] [id number] [place] [address] 8162 Jul, [facility] [place] [facility] [address] [id number] [place] [address] Jul, [facility] [place] [facility] [address] [id number] [place] [address] Jul, [facility] [place] [facility] [address] [id number] [place] [address]- 1428 Jul, [facility] [place] [facility] [address] [id number] [place] [address]- 3645 Jul, [facility] [place] [facility] [address] [id number] [place] [address]- 5459 Jul, [facility] [place] [facility] [address] [id number] [place] [address]- 9[address] 18 Jul, 2013 [facility] [place] [facility] [address] [id number] [place] [address]- 7286 16 Jul, 2013 [facility] [place] [facility] [address] [id number] [place] [address]- 2226 Jul, [facility] [place] [facility] [address] [id number] [place] [address]- 2510 Jul, [facility] [place] [facility] [address] [id number] [place] [address]- 1267 Jul, [facility] [place] [facility] [address] [id number] [place] [address]- 1183 Jul, [facility] [place] [facility] [address] [id number] [place] [address]- 3562 Jul, [facility] [place] [facility] [address] [id number] [place] [address]- 2197 Jul, [facility] [place] [facility] [address] [id number] [place] [address]- 8771 Jul, [facility] [place] [facility] [address] [id number] [place] [address]- 4663 Jul, [facility] [place] [facility] [address] [id number] [place] [address]- 2569 Jul, [facility] [place] [facility] [address] [id number] [place] [address]- 8564 Jul, [facility] [place] [facility] [address] [id number] [place] [address]- 8881 Jul, [facility] [place] [facility] [address] [id number] [place] [address]- 4565 Jul, [facility] [place] [facility] [address] [id number] [place] [address]- 9558 Jun, [facility] [address] [id number] [place] [address]- 2132 Jun, [facility] [place] [facility] [address] [id number] [place] [address]- 9678 Jun, [facility] [address] [id number] [place] [address]- 6731 Jun, [facility] [place] [facility] [address] [id number] [place] [address]- 6959 Jun, [facility] [address] [id number] [place] [address]- 6362 Jun, [facility] [address] [id number] [place] [address]- 8415 Jun, [facility] [place] [facility] [address] [id number] [place] [address]- 5971 Jun, [facility] [address] [id number] [place] [address]- 9679 Jun, [facility] [place] [facility] [address] [id number] [place] [address]- 5064 Jun, [facility] [address] [id number] [place] [address]- 7971 Jun, [facility] [place] [facility] [address] [id number] [place] [address]- 6401 Jun, [facility] [place] [facility] [address] [id number] [place] [address]- 7379 May, [facility] [place] [facility] [address] [id number] [place] [address]- 4867 May, [facility] [place] [facility] [address] [id number] [place] [address]- 6401 Apr, [facility] [place] [facility] [address] [id number] [place] [address]- 3338 Apr, [facility] [place] [facility] [address] [id number] [place] [address]- 9482 Apr, [facility] [place] [facility] [address] [id number] [place] [address]- 6856 Apr, [facility] [place] [facility] [address] [id number] [place] [address]- 8119 Apr, [facility] [place] [facility] [address] [id number] [place] [address]- 1038 Apr, [facility] [place] [facility] [address] [id number] [place] [address]- 2279 Apr, [facility] [place] [facility] [address] [id number] [place] [address]- 9928 Apr, [facility] [place] [facility] [address] [id number] [place] [address]- 7712 Apr, [facility] [place] [facility] [address] [id number] [place] [address]- 7711 Apr, [facility] [place] [facility] [address] [id number] [place] [address]- 1395 Apr, [facility] [place] [facility] [address] [id number] [place] [address]- 0824 Mar, [facility] [place] [facility] [address] [id number] [place] [address]- 1492 16 Mar, 2013 [facility] [place] [facility] [address] [id number] [place] [address]- 6209 Mar, [facility] [place] [facility] [address] [id number] [place] [address] 1983 Mar, [facility] [place] [facility] [address] [id number] [place] [address] 1979 Feb, [facility] [place] [facility] [address] [id number] [place] [address] Feb, [facility] [place] [facility] [address] [id number], [place] [address]- 6792 Feb, [facility] [place] [facility] [address] [id number] [place] [address]- 6750 Feb, [facility] [place] [facility] [address] [id number], [place] [address]- 5204 Feb, [facility] [place] [facility] [address] [id number] [place] [address]- 2169 Feb, [facility] [place] [facility] [address] [id number], [place] [address]- 3072 Feb, [facility] [place] [facility] [address] [id number] [place] [address]- 2002 Feb, [facility] [place] [facility] [address] [id number], [place] [address]- 4126 Feb, [facility] [place] [facility] [address] [id number], [place] [address]- 8929 Feb, [facility] [place] [facility] [address] [id number], [place] [address]- 2900 Feb, [facility] [place] [facility] [address] [id number], [place] [address]- 2722 Jan, [facility] [place] [facility] [address] [id number], [place] [address]- 6184 Jan, [facility] [place] [facility] [address] [id number], [place] [address]- 9602 Jan, [facility] [place] [facility] [address] [id number], [place] [address]- 4502 Jan, [facility] [place] [facility] [address] [id number], [place] [address]- 9845 Jan, [facility] [place] [facility] [address] [id number], [place] [address]- 3793 Jan, [facility] [place] [facility] [address] [id number], [place] [address]- 6655 Jan, [facility] [place] [facility] [address] [id number] [place] [address]- 0522 02 Jan, 2013 [facility] [place] [facility] [address] [id number] [place] [address]- 9086 30 Sep, 2012 [facility] [place] [facility] [address] [id number] [place] [address] 2546 25 Sep, 2012 [facility] [place] [facility] [address] [id number] [place] [address] 2546 18 Sep, 2012 [facility] [place] [facility] [address] [id number] [place] [address] 2543 17 Sep, 2012 [facility] [place] [facility] [address] [id number] [place] [address]- 8986 17 Dec, 2012 [facility] [place] [facility] [address] [id number] [place] [address]- 4776 16 Dec, 2012 [facility] [place] [facility] [address] [id number] [place] [address]- 0115 13 Dec, 2012 [facility] [place] [facility] [address] [id number] [place] [address]- 3925 11 Dec, 2012 [facility] [place] [facility] [address] [id number] [place] [address]- 7911 05 Dec, 2012 [facility] [place] [facility] [address] [id number] [place] [address]- 3518 04 Dec, 2012 [facility] [place] [facility] [address] [id number] [place] [address]- 2543 30 Nov, 2012 [facility] [place] [facility] [address] [id number] [place] [address] 2548 29 Nov, 2012 [facility] [place] [facility] [address] [id number] [place] [address] 2542 22 Nov, 2012 [facility] [place] [facility] [address] [id number] [place] [address]- 2548 16 Nov, 2012 [facility] [place] [facility] [address] [id number] [place] [address]- 2882 Nov, [facility] [place] [facility] [address] [id number] [place] [address]- 4929 Nov, [facility] [place] [facility] [address] [id number] [place] [address]- 8128 Nov, [facility] [place] [facility] [address] [id number] [place] [address]- 9362 Oct, [facility] [place] [facility] [address] [id number] [place] [address]- 3258 Oct, [facility] [place] [facility] [address] [id number] [place] [address]- 2218 Oct, [facility] [place] [facility] [address] [id number] [place] [address]- 9799 Oct, [facility] [place] [facility] [address] [id number] [place] [address]- 9423 Oct, [facility] [place] [facility] [address] [id number] [place] [address]- 5983 Oct, [facility] [place] [facility] [address] [id number] [place] [address]- 9539 Sep, [facility] [place] [facility] [address] [id number] [place] [address]- 4554 Sep, [facility] [place] [facility] [address] [id number] [place] [address]- 3333 Sep, [facility] [place] [facility] [address] [id number], [place] [address]- 7327 14 Sep, 2012 [facility] [place] [facility] [address] [id number] [place] [address]- 2874 13 Sep, 2012 [facility] [place] [facility] [address] [id number] [place] [address]- 9200 10 Sep, 2012 [facility] [place] [facility] [address] [id number] [place] [address]- 0322 07 Sep, 2012 [facility] [place] [facility] [address] [id number] [place] [address]- 3484 Sep, [facility] [address] [id number] [place] [address]- 9421 Sep, [facility] [address] [id number] [place] [address]- 3278 August, [facility] [address] [id number] [place] [address]- 9210 August, [facility] [address] [id number] [place] [address]- 4820 August, [facility] [address] [id number] [place] [address]- 8595 August, [facility] [address] [id number] [place] [address]- 2305 August, [facility] [address] [id number] [place] [address]- 4817 August, [facility] [address] [id number] [place] [address]- 7150 August, [facility] [address] [id number] [place] [address]- 4452 August, [facility] [address] [id number] [place] [address]- 5187 Jul, [facility] [address] [id number] [place] [address]- 1842 Jul, [facility] [address] [place] [id number] Jul [facility] [address] [id number] [place] [address]- 2125 Jun, [facility] [address] [id number] [place] [address]- 6306 Jun, [facility] [address] [id number] [place] [address]- 7398 Jun, [facility] [address] [id number] [place] [address]- 6922 Jun, [facility] [address] [id number] [place] [address]- 4425 Jun, [facility] [place] [facility] [address] [id number] [place] [address]- 0959 Jun, [facility] [address] [id number] [place] [address]- 0020 May, [facility] [address] [id number] [place] [address]- 2453 May, [facility] [address] [id number] [place] [address]- 3856 May, [facility] [address] [id number] [place] [address]- 6785 May, [facility] [address] [id number] [place] [address]- 0431 May, [facility] [address] [id number] [place] [address]- 0905 Apr, [facility] [address] [id number] [place] [address]- 0727 Apr, [facility] [address] [id number] [place] [address]- 9646 Apr, [facility] [address] [id number] [place] [address]- 2585 Apr, [facility] [address] [id number] [place] [address]- 1019 Apr, [facility] [place] [facility] [address] [id number] [place] [address]- 8282 Apr, [facility] [place] [facility] [address] [id number] [place] [address]- 7303 Mar, [facility] [address] [id number] [place] [address]- 2569 20 Mar, 2012 [facility] [place] [facility] [address] [id number] [place] [address]- 6404 20 Mar, 2012 [facility] [place] [facility] [address] [id number] [place] [address]- 4736 19 Mar, 2012 [facility] [place] [facility] [address] [id number] [place] [address]- 4676 19 Mar, 2012 [facility] [place] [facility] [address] [id number] [place] [address]447 18 Mar, 2012 [facility] [place] [facility] [address] [id number] [place] [address]- 9918 18 Mar, 2012 [facility] [place] [facility] [address] [id number] [place] [address]- 1705 Mar, [facility] [place] [facility] [address] [id number] [place] [address]- 1764 Mar, [facility] [place] [facility] [address] [id number] [place] [address]- 1793 05 Mar, 2012 [facility] [place] [facility] [address] [id number] [place] [address]- 7699 05 Mar, 2012 [facility] [place] [facility] [address] [id number] [place] [address]- 3373 28 Feb, 2012 [facility] [place] [facility] [address] [id number] [place] [address]- 5445 28 Feb, 2012 [facility] [place] [facility] [address] [id number], [place] [address]- 7164 Feb, [facility] [place] [facility] [address] [id number] [place] [address]- 6276 Feb, [facility] [place] [facility] [address] [id number] [place] [address]- 5906 Feb, [facility] [place] [facility] [address] [id number] [place] [address]- 3946 16 Feb, 2012 [facility] [place] [facility] [address] [id number] [place] [address]- 6218 16 Feb, 2012 [facility] [place] [facility] [address] [id number] [place] [address]- 3987 Feb, [facility] [place] [facility] [address] [id number] [place] [address]13 Feb, [facility] [place] [facility] [address] [id number] [place] [address]- 6731 Feb, [facility] [place] [facility] [address] [id number] [place] [address]- 8839 Feb, [facility] [place] [facility] [address] [id number] [place] [address]- 3277 Jan, [facility] [place] [facility] [address] [id number] [place] [address]- 2540 Jan, [facility] [place] [facility] [address] [id number] [place] [address]- 2814 Jan, [facility] [place] [facility] [address] [id number] [place] [address]- 4461 Jan, [facility] [place] [facility] [address] [id number] [place] [address]- 0462 Jan, [facility] [place] [facility] [address] [facility] [id number] [place] [address]- 6738 Jan, [facility] [place] [facility] [address] [id number] [place] [address]- 9279 09 Jan, 2012 [facility] [place] [facility] [address] [id number] [place] [address]- 7735 24 Sep2011 [facility] [place] [facility] [address] [id number] [place] [address]- 9262 17 Sep2011 [facility] [place] [facility] [address] [id number] [place] [address]- 3854 13 Sep2011 [facility] [place] [facility] [address] [id number] [place] [address]- 3136 Dec, [facility] [place] [facility] [address] [id number] [place] [address]- 0703 Nov, [facility] [place] [facility] [address] [id number] [place] [address]- 1785 Nov, [facility] [place] [facility] [address] [id number] [place] [address]- 5322 Nov, [facility] [place] [facility] [address] [id number] [place] [address]- 6181 Nov, [facility] [place] [facility] [address] [id number] [place] [address]- 5604 Nov, [facility] [place] [facility] [address] [id number] [place] [address]- 4739 Nov, [facility] [place] [facility] [address] [id number] [place] [address]- 6731 Nov, [facility] [place] [facility] [address] [id number] [place] [address]- 7491 Nov, [facility] [place] [facility] [address] [id number] [place] [address]- 7530 Nov, [facility] [place] [facility] [address] [id number] [place] [address]- 1417 Nov, [facility] [place] [facility] [address] [id number] [place] [address]- 9839 Nov, [facility] [place] [facility] [address] [id number] [place] [address]- 9838 Nov, [facility] [place] [facility] [address] [id number] [place] [address]- 4794 Nov, [facility] [place] [facility] [address] [id number] [place] [address]- 9539 Oct, [facility] [place] [facility] [address] [id number] [place] [address]- 9182 Oct, [facility] [place] [facility] [address] [id number] [place] [address]- 3451 Oct, [facility] [place] [facility] [address] [id number] [place] [address] Oct, [facility] [place] [facility] [address] [id number] [place] [address] Oct, [facility] [place] [facility] [address] [id number] [place] [address] Oct, [facility] [place] [facility] [address] [id number] [place] [address] Oct, [facility] [place] [facility] [address] [id number] [place] [address] Oct, [facility] [place] [facility] [address] [id number] [place] [address] Oct, [facility] [place] [facility] [address] [id number] [place] [address] Sep, [facility] [place] [facility] [address] [id number] [place] [address] Sep, [facility] [place] [facility] [address] [id number] [place] [address] Sep, [facility] [place] [facility] [address] [id number] [place] [address] Sep, [facility] [place] [facility] [address] [id number] [place] [address] Sep, [facility] [place] [facility] [address] [id number] [place] [address] Sep, [facility] [place] [facility] [address] [id number] [place] [address] Sep, [facility] [place] [facility] [address] [id number] [place] [address] Sep, [facility] [place] [facility] [address] [id number] [place] [address] August, [facility] [place] [facility] [address] [id number], [place] [address] August, [facility] [id number] [address] August, [facility] [id number] [address] [address] August, [facility] [id number], [place] [address] August, [facility] [address] [facility] [id number], [place] [address] August, [facility] [id number] [address] August, [facility] [id number], [place] [address] August, [facility] [id number], [place] [address] August, [facility] [id number], [place] [address] August, [facility] [id number], [place] [address] August, [facility] [id number], [place] [address] August, [facility] [id number], [place] [address] Oct, IMMUNIZATIONS No Known Immunizations SOCIAL HISTORY Never Assessed REASON FOR VISIT FYI only PLAN OF CARE VITAL SIGNS MEDICATIONS No [...] Hospitalization History suicidal ideations-[facility] 12/28 Hospitalization History hypoxia--[facility] 02/13/2016 Hospitalization History shortness of breath at june 2016 Hospitalization History Shortness of breath at august 2016 Hospitalization History SOB, chest pain at 12/2016
--- OUTSIDE RECORDS SUMMARY | 2018-02-11 13:25 | XMS REPORT ---
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 mood [affective] disorder F39 [facility] [id number] [place] [address] 52985- 3383 Jun, [facility] [id number] [place] [address] 55816- 0661 Jun, Type 2 diabetes mellitus with hyperglycemia E11.65 ; Oxygen dependent Z99.81 ; Folliculitis L73.9 ; Dysuria R30.0 ; Encounter for contraceptive management Z30.9 and Dog bite W54.0XXA [facility] [id number] [place] [address] 82092- 6456 Jun, Unspecified mood [affective] disorder F39 [facility] [id number] [place] [address] 21112- 7517 Jun, Type 2 diabetes mellitus with hyperglycemia E11.65 [facility] [id number] [place] [address] 10723- 0942 May, Unspecified mood [affective] disorder F39 [facility] [address] [address]- 4731 May, [facility] [id number] [place] [address] 03080- 6890 May, [facility] [address] [address]- 6549 May, [facility] [id number] [place] [address] 60305- 4992 Apr, [facility] [address] [address]- 0212 Apr, Unspecified mood [affective] disorder F39 [facility] [id number] [place] [address] 87168- 6108 Apr, [facility] [id number] [place] [address] 45089- 6559 Apr, [facility] [id number] [place] [address] 49944- 9356 Apr, [facility] [id number] [place] [address] 86818- 5182 Apr, Dysuria R30.0 and Well woman exam (no gynecological exam) Z00.00 [place] [id number] [place] [address] 29688- 5657 Mar, [facility] [id number] [place] [address] 85012- 8699 Mar, [facility] [id number] [place] [address] [id number] Mar, Dental examination Z01.20 [place] [id number] [place] [address] 31524- 2837 Mar, Chronic diarrhea K52.9 ; Intractable vomiting with nausea, vomiting of unspecified type R11.2 ; Cellulitis, unspecified cellulitis site L03.90 ; Type 2 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 and Postinflammatory hyperpigmentation L81.0 [facility] [id number] [place] [address] 09321- 4491 Mar, Unspecified mood [affective] disorder F39 [facility] [id number] [place] [address] 56637- 0680 Mar, Unspecified mood [affective] disorder F39 [facility] [id number] [place] [address] 67887- 5507 Mar, [facility] [id number] [address]- 6453 Mar, [facility] [id number] [address]- 5392 Mar, [facility] [id number] [address]- 8581 Mar, [facility] [id number] [place] [address] 94808- 5713 Mar, [facility] [address] [facility] [id number] [address]- 5001 Mar, [facility] [id number] [place] [address] 40694- 4083 Feb, Unspecified mood [affective] disorder F39 [facility] [id number] [place] [address] 85825- 2498 Feb, [facility] [id number] [address]- 9462 Feb, [facility] [address] [address]- 3557 Jan, Unspecified mood [affective] disorder F39 [facility] [place] [id number] [facility] [address] [id number] [id number] Jan, Encounter for dental examination Z01.20 [facility] [address] [address]- 9439 Jan, [facility] [id number] [address]- 0954 Jan, [facility] [address] [address]- 1269 Jan, [facility] [id number] [address]- 8988 Jan, [facility] [address] [address]- 7236 Jan, [facility] [id number] [place] [address] 77370- 7399 08 Jan, 2015 Abdominal abscess K65.1 and Dental caries K02.9 [facility] [id number] [place] [address] 69138- 2372 Jan, [facility] [id number] [place] [address] 81412- 6172 30 Dec, 2014 Diabetes with neurological manifestations, type II or unspecified type, not stated as uncontrolled 250.60 ; Essential hypertension, benign 401.1 ; Concussion 850.9 and Skin texture changes 782.8 [facility] [address] 66143- 0500 Dec, [facility] [id number] [place] [address] 48823- 4834 24 Dec, 2014 [facility] [address] 27691- 3482 Dec, [facility] [id number] [place] [address] 76433- 5390 Dec, [facility] [id number] [place] [address] 45894- 9385 17 Dec, 2014 Affective disorder 296.90 [facility] [id number] [place] [address] 37470- 1399 14 Dec, 2014 [facility] [id number] [place] [address] 62731- 2544 10 Dec, 2014 Affective disorder 296.90 [facility] [id number] [place] [address] 49705- 7103 Dec, [facility] [id number] [place] [address] 55762- 1264 Dec, [facility] [id number] [place] [address] 88714- 1107 Dec, [facility] [address] [place] [address]- 7553 Dec, [facility] [id number] [place] [address] 03115- 5096 Nov, Affective disorder 296.90 [facility] [id number] [place] [address] 43063 2548 Nov, [facility] [id number] [place] [address] 03559- 2854 Nov, Affective disorder 296.90 [facility] [id number] [place] [address] 20361 2546 Nov, Diarrhea 787.91 [facility] [id number] [place] [address] 93399- 5006 Nov, [facility] [id number] [place] [address] 58505- 9267 Nov, Diarrhea 787.91 [facility] [id number] [place] [address] 28393 2544 Nov, Diarrhea 787.91 and Hyperlipidemia 272.4 [facility] [id number] [place] [address] 24052- 3086 Nov, Diarrhea 787.91 [facility] [id number] [place] [address] 66103 254 Nov, Affective disorder 296.90 [facility] [id number] [place] [address] 71390 2542 Nov, Affective disorder 296.90 [facility] [address] [address]- 5812 Nov, Affective disorder 296.90 [facility] [id number] [place] [address] 56716- 6451 Nov, [facility] [id number] [place] [address] 12784- 1431 Nov, [facility] [id number] [place] [address] 04582- 3017 Nov, [facility] [address] [address]- 5786 Nov, Episodic mood disorder 296.90 [facility] [address] [address]- 5964 Nov, [facility] [id number] [place] [address] 56851- 0118 Nov, [facility] [id number] [place] [address] 14356- 9661 Nov, [facility] [id number] [place] [address] 27622- 3271 Nov, [facility] [address] [address]- 8796 Nov, [facility] [id number] [place] [address] 57698- 9677 Nov, Lymphedema 457.1 ; Hyperlipidemia 272.4 ; Essential hypertension, benign 401.1 and Numbness of toes 782.0 [facility] [address] [address]- 7676 Nov, Episodic mood disorder 296.90 [facility] [address] [address]- 5670 Oct, [facility] [address] [address]- 6759 Oct, [facility] [address] [address]- 5934 Oct, [facility] [address] [address]- 3212 Oct, [facility] [address] [address]- 5480 Oct, [facility] [address] [address]- 9249 Oct, [facility] [address] [facility] [id number] [place] [address]- 8862 Oct, 2014 [facility] [address] [facility] [id number] [place] [address]- 3666 Oct, 2014 [facility] [address] [facility] [id number] [place] [address]- 7685 Oct, Episodic mood disorder 296.90 [facility] [address] [facility] [id number] [place] [address]- 4883 30 Sep, 2014 [facility] [address] [facility] [id number] [place] [address]- 9818 29 Sep, 2014 [facility] [address] [facility] [id number] [place] [address]- 6974 Sep, [facility] [address] [facility] [id number] [place] [address]- 7719 Sep, [facility] [address] [facility] [id number] [place] [address]- 4063 Sep, [facility] [address] [facility] [id number] [place] [address]- 0479 Sep, Episodic mood disorder 296.90 [facility] [address] [facility] [id number] [place] [address]- 1642 Sep, Unspecified episodic mood disorder 296.90 [facility] [address] [facility] [id number] [place] [address]- 4875 18 Sep, 2014 [facility] [address] [facility] [id number] [place] [address]- 7083 18 Sep, 2014 [facility] [address] [facility] [id number] [place] [address]- 0433 16 Sep, 2014 Episodic mood disorder 296.90 [facility] [address] [facility] [id number] [place] [address]- 0940 15 Sep, 2014 [facility] [address] [id number] [address]- 3210 Sep, [facility] [address] [address]- 4459 Sep, [facility] [id number] [place] [address] 65274- 7896 Sep, Hematemesis 578.0 and Vomiting 787.03 [facility] [id number] [place] [address] 78208- 0202 Sep, Episodic mood disorder 296.90 [facility] [address] [address]- 7134 Sep, [facility] [id number] [place] [address] 76210- 2889 Sep, [facility] [address] [address]- 0064 Sep, Diabetes mellitus without mention of complication, type II or unspecified type, not stated as uncontrolled 250.00 and Other chronic pain 338.29 [facility] [address] [address]- 9302 Sep, Episodic mood disorder 296.90 [facility] [id number] [place] [address] 65474- 9857 Sep, [facility] [address] [address]- 0956 Sep, Episodic mood disorder 296.90 [facility] [address] [address]- 9276 Sep, [facility] [address] [address]- 7808 August, [facility] [address] [address]- 6109 August, [facility] [address] [id number] [address]- 7554 August, Episodic mood disorder 296.90 [facility] [id number] [place] [address]- 9003 August, [facility] [address] [facility] [id number] [place] [address]- 7690 August, Unspecified episodic mood disorder 296.90 [facility] [address] [facility] [id number] [place] [address]- 9222 August, Vomiting 787.03 [facility] [address] [facility] [id number] [place] [address]- 7345 August, [facility] [address] [facility] [id number] [place] [address]- 4751 August, [facility] [address] [facility] [id number] [place] [address]- 4266 August, [facility] [id number] [place] [address]- 4991 August, [facility] [address] [id number] [address]- 0438 August, [facility] [id number] [place] [address]- 1953 Jul, [facility] [id number] [address] Jul, [facility] [address] [id number] [address] Jul, [facility] [address] [id number] [address] Jun, [facility] [address] [facility] [id number] [place] [address] Jun, [facility] [address] [facility] [id number] [address] Jun, [facility] [place] [facility] [address] [facility] [id number] [address] Jun, [facility] [address] [id number] [address] 30 Jun, 2014 [facility] [place] [facility] [address] [id number] [place] [address] Jun, [facility] [place] [facility] [address] [id number] [place] [address] Jun, [facility] [place] [facility] [address] [id number] [place] [address] Jun, [facility] [place] [facility] [address] [id number] [place] [address] Jun, [facility] [place] [facility] [address] [id number] [place] [address] Jun, [facility] [place] [facility] [address] [id number] [place] [address] Jun, [facility] [place] [facility] [address] [id number] [place] [address] Jun, [facility] [place] [facility] [address] [id number] [place] [address] Jun, [facility] [place] [facility] [address] [id number] [place] [address] Jun, [facility] [place] [facility] [address] [id number] [place] [address] Jun, [facility] [place] [facility] [address] [id number] [place] [address] Jun, [facility] [place] [facility] [address] [id number] [place] [address] Jun, [facility] [place] [facility] [address] [id number] [place] [address] Jun, [facility] [place] [facility] [address] [id number] [place] [address] Jun, [facility] [place] [facility] [address] [id number] [place] [address] Jun, [facility] [place] [facility] [address] [id number] [place] [address] 21 Jun, 2014 [facility] [place] [facility] [address] [id number] [place] [address] 20 Jun, 2014 [facility] [place] [facility] [address] [id number] [place] [address] 20 Jun, 2014 [facility] [place] [facility] [address] [id number] [place] [address] 20 Jun, 2014 [facility] [place] [facility] [address] [id number] [place] [address] 20 Jun, 2014 [facility] [place] [facility] [address] [id number] [place] [address] 19 Jun, 2014 [facility] [place] [facility] [address] [id number] [place] [address] 19 Jun, 2014 [facility] [place] [facility] [address] [id number] [place] [address] 0194 18 Jun, 2014 [facility] [place] [facility] [address] [id number] [place] [address] 3442 18 Jun, 2014 [facility] [place] [facility] [address] [id number] [place] [address]- 9525 17 Jun, 2014 [facility] [place] [facility] [address] [id number] [place] [address]- 6640 17 Jun, 2014 [facility] [place] [facility] [address] [id number] [place] [address]- 0908 16 Jun, 2014 [facility] [place] [facility] [address] [id number] [place] [address] 2943 16 Jun, 2014 [facility] [place] [facility] [address] [id number] [place] [address]- 4726 16 Jun, 2014 [facility] [place] [facility] [address] [id number] [place] [address]- 5466 16 Jun, 2014 [facility] [place] [facility] [address] [id number] [place] [address]- 2290 Jun, [facility] [place] [facility] [address] [id number] [place] [address]- 0798 16 Jun, 2014 [facility] [place] [facility] [address] [id number] [place] [address]- 1317 Jun, [facility] [place] [facility] [address] [id number] [place] [address]- 3295 Jun, [facility] [place] [facility] [address] [id number] [place] [address]- 6819 Jun, [facility] [place] [facility] [address] [id number] [place] [address]- 6875 Jun, [facility] [place] [facility] [address] [id number] [place] [address]- 6436 Jun, [facility] [place] [facility] [address] [id number] [place] [address]- 9118 Jun, 2014 [facility] [place] [facility] [address] [id number] [place] [address]- 4374 Jun, [facility] [place] [facility] [address] [id number] [place] [address]- 6794 Jun, [facility] [place] [facility] [address] [id number] [place] [address]- 4375 Jun, [facility] [place] [facility] [address] [id number] [place] [address]- 9514 Jun, [facility] [place] [facility] [address] [id number] [place] [address]- 8136 Jun, 2014 [facility] [place] [facility] [address] [id number] [place] [address]- 3467 Jun, [facility] [place] [facility] [address] [id number] [place] [address]- 0089 Jun, [facility] [place] [facility] [address] [id number] [place] [address]- 7112 Jun, [facility] [place] [facility] [address] [id number] [place] [address]- 6216 Jun, [facility] [place] [facility] [address] [id number] [place] [address]- 3482 Jun, [facility] [place] [facility] [address] [facility] [id number] [place] [address]- 5193 Jun, [facility] [place] [facility] [address] [facility] [id number] [place] [address]- 1736 Jun, [facility] [place] [facility] [address] [id number] [place] [address]- 8905 Jun, [facility] [place] [facility] [address] [id number] [place] [address]- 3334 Jun, [facility] [place] [facility] [address] [facility] [id number] [place] [address]- 2094 May, [facility] [place] [facility] [address] [facility] [id number] [place] [address]- 0441 May, 2014 [facility] [place] [facility] [address] [facility] [id number] [place] [address]- 8525 May, [facility] [place] [facility] [address] [id number] [place] [address]- 3050 May, [facility] [place] [facility] [address] [facility] [id number] [place] [address]- 8930 May, [facility] [place] [facility] [address] [facility] [id number] [place] [address]- 0028 May, 2014 [facility] [place] [facility] [address] [facility] [id number] [place] [address]- 2540 May, [facility] [place] [facility] [address] [facility] [id number] [place] [address]- 5558 May, 2014 [facility] [place] [facility] [address] [facility] [id number] [place] [address]- 9658 May, 2014 [facility] [place] [facility] [address] [facility] [id number] [place] [address]- 1202 May, 2014 [facility] [place] [facility] [address] [facility] [id number] [place] [address]- 3014 18 May, 2014 [facility] [place] [facility] [address] [facility] [id number] [place] [address]- 0866 18 May, 2014 [facility] [place] [facility] [address] [facility] [id number] [place] [address]- 0346 13 May, 2014 [facility] [place] [facility] [address] [facility] [id number] [place] [address]- 2542 13 May, 2014 [facility] [place] [facility] [address] [facility] [id number] [place] [address]- 6005 11 May, 2014 [facility] [place] [facility] [address] [id number] [place] [address]- 8723 May, 2014 [facility] [place] [facility] [address] [id number] [place] [address]- 4221 May, 2014 [facility] [place] [facility] [address] [facility] [id number] [place] [address]- 9864 May, 2014 [facility] [place] [facility] [address] [facility] [id number] [place] [address]- 8990 May, 2014 [facility] [place] [facility] [address] [facility] [id number] [place] [address]- 4944 May, 2014 [facility] [place] [facility] [address] [id number] [place] [address]- 2546 May, 2014 [facility] [place] [facility] [address] [facility] [id number] [place] [address]- 2549 May, 2014 [facility] [place] [facility] [address] [facility] [id number] [place] [address]- 5919 May, 2014 [facility] [place] [facility] [address] [facility] [id number] [place] [address]- 6852 05 May, 2014 [facility] [place] [facility] [id number] [place] [address]- 1857 May, [facility] [place] [facility] [address] [id number] [place] [address]- 0751 May, [facility] [place] [facility] [address] [id number] [place] [address]- 0298 May, [facility] [place] [facility] [address] [id number] [place] [address]- 2048 Apr, [facility] [place] [facility] [address] [id number] [place] [address]- 7208 Apr, [facility] [place] [facility] [address] [id number] [place] [address]- 4622 Apr, [facility] [place] [facility] [address] [id number] [place] [address]- 7340 Apr, [facility] [place] [facility] [address] [id number] [place] [address]- 5360 Apr, [facility] [place] [facility] [address] [id number] [place] [address]- 9392 Apr, [facility] [place] [facility] [address] [id number] [place] [address]- 3164 Apr, [facility] [place] [facility] [address] [id number] [place] [address]- 1550 Apr, [facility] [place] [facility] [address] [id number] [place] [address]- 0436 Apr, [facility] [place] [facility] [address] [id number] [place] [address]- 0123 Apr, [facility] [place] [facility] [address] [id number] [place] [address]- 6308 Apr, [facility] [place] [facility] [address] [id number] [place] [address]- 1036 Apr, [facility] [place] [facility] [address] [id number] [place] [address]- 4856 Apr, [facility] [place] [facility] [address] [id number] [place] [address]- 3619 Apr, [facility] [address] [id number] [place] [address]- 4490 Apr, [facility] [place] [facility] [address] [id number] [place] [address]- 5110 Apr, [facility] [place] [facility] [address] [id number] [place] [address]- 0947 Apr, [facility] [place] [facility] [address] [id number] [place] [address]- 8010 Apr, [facility] [place] [facility] [address] [id number] [place] [address]- 2172 Apr, [facility] [place] [facility] [address] [id number] [place] [address]- 8567 Apr, [facility] [address] [id number] [place] [address]- 4210 Mar, [facility] [place] [facility] [address] [id number] [place] [address]- 3389 Mar, [facility] [place] [facility] [address] [id number] [place] [address]- 1896 Mar, [facility] [place] [facility] [address] [id number] [place] [address]- 1497 Mar, [facility] [place] [facility] [address] [id number] [place] [address]- 2882 Mar, [facility] [place] [facility] [address] [id number] [place] [address]- 6120 Mar, [facility] [place] [facility] [address] [id number] [place] [address]- 9193 Mar, [facility] [place] [facility] [address] [id number] [place] [address]- 3995 18 Mar, 2014 [facility] [place] [facility] [address] [id number] [place]697 15 Mar, 2014 [facility] [place] [facility] [address] [id number] [place] [address]- 3979 15 Mar, 2014 [facility] [place] [facility] [address] [id number] [place] [address]- 8267 Mar, [facility] [place] [facility] [address] [id number] [place] [address]- 1571 Mar, [facility] [place] [facility] [address] [id number] [place] [address]- 2316 Mar, [facility] [place] [facility] [address] [id number] [place] [address]- 5471 Mar, [facility] [place] [facility] [address] [id number] [place] [address]- 9818 Mar, [facility] [place] [facility] [address] [id number] [place] [address]- 7544 Mar, [facility] [place] [facility] [address] [id number] [place] [address]- 9939 Feb, [facility] [place] [facility] [address] [id number] [place] [address]- 7728 Feb, [facility] [place] [facility] [address] [id number] [place] [address]- 1377 Feb, [facility] [place] [facility] [address] [id number] [place] [address]- 3986 Feb, [facility] [place] [facility] [address] [id number] [place] [address]- 4307 Feb, [facility] [place] [facility] [address] [id number] [place] [address]- 2306 Feb, [facility] [place] [facility] [address] [id number] [place] [address]- 9573 Feb, [facility] [place] [facility] [address] [id number] [place] [address]- 8095 18 Feb, 2014 [facility] [place] [facility] [address] [id number] [place] [address]- 9198 18 Feb, 2014 [facility] [place] [facility] [address] [id number] [place] [address]- 4251 17 Feb, 2014 [facility] [place] [facility] [address] [id number] [place] [address]- 8142 17 Feb, 2014 [facility] [place] [facility] [address] [id number] [place] [address]- 6942 17 Feb, 2014 [facility] [place] [facility] [address] [id number] [place] [address]- 2129 17 Feb, 2014 [facility] [place] [facility] [address] [id number] [place] [address]- 3697 Feb, [facility] [place] [facility] [address] [id number] [place] [address]- 0637 Feb, [facility] [place] [facility] [address] [id number] [place] [address]- 7859 Feb, [facility] [place] [facility] [address] [id number] [place] [address]- 8589 Feb, [facility] [place] [facility] [address] [id number] [place] [address]- 8469 Feb, [facility] [place] [facility] [address] [id number] [place] [address]- 2612 Feb, [facility] [place] [facility] [address] [id number] [place] [address]- 2813 Feb, [facility] [place] [facility] [address] [id number] [place] [address]- 9528 Feb, [facility] [place] [facility] [address] [id number] [place] [address]- 2851 Jan, [facility] [place] [facility] [address] [id number] [place] [address]- 7106 Jan, [facility] [place] [facility] [address] [id number] [place] [address]- 9867 Jan, [facility] [place] [facility] [address] [id number] [place] [address]- 4247 30 Jan, 2013 [facility] [place] [facility] [address] [id number] [place] [address]- 3848 24 Jan, 2014 [facility] [place] [facility] [address] [id number] [place] [address]- 0008 24 Jan, 2014 [facility] [place] [facility] [address] [id number] [place] [address]- 9612 Jan, [facility] [place] [facility] [address] [id number] [place] [address]- 9189 21 Jan, 2014 [facility] [place] [facility] [address] [id number] [place] [address]- 5253 20 Jan, 2014 [facility] [place] [facility] [address] [id number] [place] [address]- 0470 20 Jan, 2014 [facility] [place] [facility] [address] [id number] [place] [address]- 3398 17 Jan, 2014 [facility] [place] [facility] [address] [id number] [place] [address]- 4187 17 Jan, 2014 [facility] [place] [facility] [address] [id number] [place] [address]- 9461 17 Jan, 2014 [facility] [place] [facility] [address] [id number] [place] [address]- 1600 17 Jan, 2014 [facility] [place] [facility] [address] [id number] [place] [address]- 4897 15 Jan, 2014 [facility] [place] [facility] [address] [id number] [place] [address]- 2782 15 Jan, 2014 [facility] [place] [facility] [address] [id number] [place] [address]- 0617 14 Jan, 2014 [facility] [place] [facility] [address] [id number] [place] [address]- 4197 14 Jan, 2013 [facility] [place] [facility] [address] [id number] [place] [address]- 3417 Jan, [facility] [place] [facility] [address] [id number] [place] [address]- 0440 Jan, [facility] [place] [facility] [address] [id number] [place] [address]- 4719 Jan, [facility] [place] [facility] [address] [id number] [place] [address]- 1151 Jan, [facility] [place] [facility] [address] [id number] [place] [address]- 5428 Jan, [facility] [place] [facility] [address] [id number] [place] [address]- 8730 Jan, [facility] [place] [facility] [address] [id number] [place] [address]- 2140 Jan, [facility] [place] [facility] [address] [id number] [place] [address]- 6393 25 Dec, 2013 [facility] [place] [facility] [address] [id number] [place] [address]- 3716 25 Dec, 2013 [facility] [place] [facility] [address] [id number] [place] [address]- 5002 23 Dec, 2013 [facility] [place] [facility] [address] [id number] [place] [address]- 9748 23 Dec, 2013 [facility] [place] [facility] [address] [id number] [place] [address]- 3804 19 Dec, 2013 [facility] [place] [facility] [address] [id number] [place] [address]- 4420 19 Dec, 2013 [facility] [place] [facility] [address] [id number] [place] [address]- 4621 17 Dec, 2013 [facility] [place] [facility] [address] [id number] [place] [address]- 6540 17 Dec, 2013 [facility] [place] [facility] [address] [id number] [place] [address]- 8069 09 Dec, 2013 [facility] [place] [facility] [address] [id number] [place] [address]- 1134 09 Dec, 2013 [facility] [place] [facility] [address] [id number] [place] [address]- 9196 08 Dec, 2013 [facility] [place] [facility] [address] [id number] [place] [address]- 2906 Dec, 2013 [facility] [place] [facility] [address] [id number] [place] [address]- 0559 Dec, 2013 [facility] [place] [facility] [address] [id number] [place] [address]- 5700 Dec, 2013 [facility] [place] [facility] [address] [id number] [place] [address]- 8303 Dec, 2013 [facility] [place] [facility] [address] [id number] [place] [address]- 4027 Dec, 2013 [facility] [place] [facility] [address] [id number] [place] [address]- 0441 Dec, 2013 [facility] [place] [facility] [address] [id number] [place] [address]- 7412 Dec, 2013 [facility] [place] [facility] [address] [id number] [place] [address]- 9400 Nov, [facility] [place] [facility] [address] [id number] [place] [address]- 7098 Nov, [facility] [place] [facility] [address] [id number] [place] [address]- 3309 Nov, [facility] [place] [facility] [address] [id number] [place] [address]- 2115 Nov, [facility] [place] [facility] [address] [id number] [place] [address]- 3990 Nov, [facility] [place] [facility] [address] [id number] [place] [address]- 6750 Nov, [facility] [place] [facility] [address] [id number] [place] [address]- 1774 Nov, [facility] [place] [facility] [address] [id number] [place] [address]- 5201 Nov, [facility] [place] [facility] [address] [id number] [place] [address]- 2355 Nov, [facility] [place] [facility] [address] [id number] [place] [address]- 4916 Nov, [facility] [place] [facility] [address] [id number] [place] [address]- 4659 Nov, [facility] [place] [facility] [address] [id number] [place] [address]- 2478 Nov, [facility] [place] [facility] [address] [id number] [place] [address]- 5713 Oct, [facility] [place] [facility] [address] [id number] [place] [address]- 3751 Oct, [facility] [place] [facility] [address] [id number] [place] [address]- 3279 Oct, [facility] [place] [facility] [address] [id number] [place] [address]- 7077 Oct, [facility] [place] [facility] [address] [id number] [place] [address]- 5426 Oct, [facility] [place] [facility] [address] [id number] [place] [address]- 0947 Oct, [facility] [place] [facility] [address] [id number] [place] [address] Oct, [facility] [place] [facility] [address] [id number] [place] [address] Oct, [facility] [place] [facility] [address] [id number] [place] [address] Oct, [facility] [place] [facility] [address] [id number] [place] [address] Oct, [facility] [place] [facility] [address] [id number] [place] [address] 16 Oct, 2013 [facility] [place] [facility] [address] [id number] [place] [address]- [address] 16 Oct, 2013 [facility] [place] [facility] [address] [id number] [place] [address] 14 Oct, 2013 [facility] [place] [facility] [address] [id number] [place] [address] 32[address] 14 Oct, 2013 [facility] [place] [facility] [address] [id number] [place] [address] 6222 13 Oct, 2013 [facility] [place] [facility] [address] [id number] [place] [address] 13 Oct, 2013 [facility] [place] [facility] [address] [id number] [place] [address]693 Oct, [facility] [place] [facility] [address] [id number] [place] [address]- 0267 27 Sep, 2013 [facility] [place] [facility] [address] [id number] [place] [address]- 5927 27 Sep, 2013 [facility] [place] [facility] [address] [id number] [place] [address]- 5716 20 Sep, 2013 [facility] [place] [facility] [address] [id number] [place] [address]- 9586 20 Sep, 2013 [facility] [place] [facility] [address] [id number] [place] [address]- 6545 18 Sep, 2013 [facility] [place] [facility] [address] [id number] [place] [address] 4401 18 Sep, 2013 [facility] [place] [facility] [address] [id number] [place] [address]- 4145 17 Sep, 2013 [facility] [place] [facility] [address] [id number] [place] [address]- 4103 17 Sep, 2013 [facility] [place] [facility] [address] [id number] [place] [address]- 7107 11 Sep, 2013 [facility] [place] [facility] [address] [id number] [place] [address]- 0337 11 Sep, 2013 [facility] [place] [facility] [address] [id number] [place] [address]- 45[address] Sep, [facility] [place] [facility] [address] [id number] [place] [address]- 7093 Sep, [facility] [place] [facility] [address] [id number] [place] [address]- 8669 Sep, [facility] [place] [facility] [address] [id number] [place] [address]- 9[address] Sep, [facility] [place] [facility] [address] [id number] [place] [address]- 0246 Sep, [facility] [place] [facility] [address] [id number] [place] [address]- 1465 Sep, [facility] [place] [facility] [address] [id number] [place] [address]- 9534 Sep, [facility] [place] [facility] [address] [id number] [place] [address]- 1163 Sep, [facility] [place] [facility] [address] [id number] [place] [address]- 7101 Sep, [facility] [place] [facility] [address] [id number] [place] [address]- 5281 Sep, [facility] [place] [facility] [address] [id number] [place] [address]- 9146 Sep, [facility] [place] [facility] [address] [id number] [place] [address]- 0439 Sep, [facility] [place] [facility] [address] [id number] [place] [address]- 74[address] August, [facility] [place] [facility] [address] [id number] [place] [address]- 4455 August, [facility] [place] [facility] [address] [id number] [place] [address]- 2098 August, [facility] [place] [facility] [address] [id number] [place] [address]- 6103 August, [facility] [place] [facility] [address] [id number] [place] [address]- 0013 August, [facility] [place] [facility] [address] [id number] [place] [address]- 2679 August, [facility] [place] [facility] [address] [id number] [place] [address]- 5843 August, [facility] [place] [facility] [address] [id number] [place] [address]- 1011 August, [facility] [place] [facility] [address] [id number] [place] [address]- 6004 August, [facility] [place] [facility] [address] [id number] [place] [address]- 7048 August, [facility] [place] [facility] [address] [id number] [place] [address]- 9560 August, [facility] [place] [facility] [address] [id number] [place] [address]- 4215 Jul, [facility] [place] [facility] [address] [id number] [place] [address]- 8366 Jul, [facility] [place] [facility] [address] [id number] [place] [address]- 3060 Jul, [facility] [place] [facility] [address] [id number] [place] [address]- 1182 Jul, [facility] [place] [facility] [address] [id number] [place] [address]- 6699 Jul, [facility] [place] [facility] [address] [id number] [place] [address]- 8879 Jul, [facility] [place] [facility] [address] [id number] [place] [address]- 5129 Jul, [facility] [place] [facility] [address] [id number] [place] [address]- 8551 Jul, [facility] [place] [facility] [address] [id number] [place] [address]- 2296 Jul, [facility] [place] [facility] [address] [id number] [place] [address]- 4035 18 Jul, 2013 [facility] [place] [facility] [address] [id number] [place] [address]- 3259 16 Jul, 2013 [facility] [place] [facility] [address] [id number] [place] [address]- 9361 Jul, [facility] [place] [facility] [address] [id number] [place] [address]- 5238 Jul, [facility] [place] [facility] [address] [id number] [place] [address]- 5926 Jul, [facility] [place] [facility] [address] [id number] [place] [address]- 6775 Jul, [facility] [place] [facility] [address] [id number] [place] [address]- 1568 Jul, [facility] [place] [facility] [address] [id number] [place] [address]- 9414 Jul, [facility] [place] [facility] [address] [id number] [place] [address]- 7735 Jul, [facility] [place] [facility] [address] [id number] [place] [address]- 3302 Jul, [facility] [place] [facility] [address] [id number] [place] [address]- 9938 Jul, [facility] [place] [facility] [address] [id number] [place] [address]- 3673 Jul, [facility] [place] [facility] [address] [id number] [place] [address]- 5735 Jul, [facility] [place] [facility] [address] [id number] [place] [address]- 9047 Jul, [facility] [place] [facility] [address] [id number] [place] [address]- 5367 Jun, [facility] [address] [id number] [place] [address]- 7763 Jun, [facility] [place] [facility] [address] [id number] [place] [address]- 5364 Jun, [facility] [address] [id number] [place] [address]- 8388 Jun, [facility] [place] [facility] [address] [id number] [place] [address]- 5216 Jun, [facility] [address] [id number] [place] [address]- 3556 Jun, [facility] [address] [id number] [place] [address]- 3851 Jun, [facility] [place] [facility] [address] [id number] [place] [address]- 9625 Jun, [facility] [address] [id number] [place] [address] Jun, [facility] [place] [facility] [address] [id number] [place] [address] 20[address] Jun, [facility] [address] [id number] [place] [address] 30[address] Jun, [facility] [place] [facility] [address] [id number] [place] [address] 7024 Jun, [facility] [place] [facility] [address] [id number] [place] [address] 7488 May, [facility] [place] [facility] [address] [id number] [place] [address] 1349 May, [facility] [place] [facility] [address] [id number] [place] [address] 6187 Apr, [facility] [place] [facility] [address] [id number] [place] [address] 1657 Apr, [facility] [place] [facility] [address] [id number] [place] [address] 7613 Apr, [facility] [place] [facility] [address] [id number] [place] [address] 4662 Apr, [facility] [place] [facility] [address] [id number] [place] [address] 7227 Apr, [facility] [place] [facility] [address] [id number] [place] [address]- 5390 Apr, [facility] [place] [facility] [address] [id number] [place] [address] 3737 Apr, [facility] [place] [facility] [address] [id number] [place] [address] 2850 Apr, [facility] [place] [facility] [address] [id number] [place] [address] 8515 Apr, [facility] [place] [facility] [address] [id number] [place] [address]- 7309 Apr, [facility] [place] [facility] [address] [id number] [place] [address]- 3415 Apr, [facility] [place] [facility] [address] [id number] [place] [address]- 7591 Mar, [facility] [place] [facility] [address] [id number] [place] [address] 5540 16 Mar, 2013 [facility] [place] [facility] [address] [id number] [place] [address] 2215 Mar, [facility] [place] [facility] [address] [id number] [place] [address]- 3804 Mar, [facility] [place] [facility] [address] [id number] [place] [address] 5027 Feb, [facility] [place] [facility] [address] [id number] [place] [address] Feb, [facility] [place] [facility] [address] [id number] [place] [address] Feb, [facility] [place] [facility] [address] [id number] [place] [address]- 5166 Feb, [facility] [place] [facility] [address] [id number] [place] [address] 0028 Feb, [facility] [place] [facility] [address] [id number] [place] [address] 2334 Feb, [facility] [place] [facility] [address] [id number] [place] [address] 2677 Feb, [facility] [place] [facility] [address] [id number] [place] [address]- 3558 Feb, [facility] [place] [facility] [address] [id number] [place] [address] 9030 Feb, [facility] [place] [facility] [address] [id number] [place] [address] 4423 Feb, [facility] [place] [facility] [address] [id number] [place] [address] 9307 Feb, [facility] [place] [facility] [address] [id number] [place] [address] 1991 Jan, [facility] [place] [facility] [address] [id number] [place] [address] 4236 Jan, [facility] [place] [facility] [address] [id number] [place] [address]- 0308 Jan, [facility] [place] [facility] [address] [id number] [place] [address]- 5964 Jan, [facility] [place] [facility] [address] [id number] [place] [address] 5575 Jan, [facility] [place] [facility] [address] [id number] [place] [address]- 8530 Jan, [facility] [place] [facility] [address] [id number] [place] [address] 8571 Jan, [facility] [place] [facility] [address] [id number] [place] [address]- 6078 02 Jan, 2013 [facility] [place] [facility] [address] [id number] [place] [address]- 9476 30 Sep, 2012 [facility] [place] [facility] [address] [id number] [place] [address] 2546 25 Sep, 2012 [facility] [place] [facility] [address] [id number] [place] [address] 2546 18 Sep, 2012 [facility] [place] [facility] [address] [id number] [place] [address] 2549 17 Sep, 2012 [facility] [place] [facility] [address] [id number] [place] [address]- 2006 17 Dec, 2012 [facility] [place] [facility] [address] [id number] [place] [address]- 8239 16 Dec, 2012 [facility] [place] [facility] [address] [id number] [place] [address]- 7856 13 Dec, 2012 [facility] [place] [facility] [address] [id number] [place] [address]- 6230 11 Dec, 2012 [facility] [place] [facility] [address] [id number] [place] [address]- 8587 05 Dec, 2012 [facility] [place] [facility] [address] [id number] [place] [address]- 4097 04 Dec, 2012 [facility] [place] [facility] [address] [id number] [place] [address]- 2542 30 Nov, 2012 [facility] [place] [facility] [address] [id number] [place] [address] 2540 29 Nov, 2012 [facility] [place] [facility] [address] [id number] [place] [address] 254 22 Nov, 2012 [facility] [place] [facility] [address] [id number] [place] [address]- 2542 16 Nov, 2012 [facility] [place] [facility] [address] [id number] [place] [address]- 2623 Nov, [facility] [place] [facility] [address] [id number] [place] [address]- 2770 Nov, [facility] [place] [facility] [address] [id number] [place] [address]- 2542 Nov, [facility] [place] [facility] [address] [id number] [place] [address]- 4136 Oct, [facility] [place] [facility] [address] [id number] [place] [address]- 5156 Oct, [facility] [place] [facility] [address] [id number] [place] [address]- 2481 Oct, [facility] [place] [facility] [address] [id number] [place] [address]- 5614 Oct, [facility] [place] [facility] [address] [id number] [place] [address]- 5880 Oct, [facility] [place] [facility] [address] [id number] [place] [address]- 0386 Oct, [facility] [place] [facility] [address] [id number] [place] [address]- 2336 Sep, [facility] [place] [facility] [address] [id number] [place] [address]- 7752 Sep, [facility] [place] [facility] [address] [id number] [place] [address]- 8972 Sep, [facility] [place] [facility] [address] [id number] [place] [address]- 9782 14 Sep, 2012 [facility] [place] [facility] [address] [id number] [place] [address]- 1431 13 Sep, 2012 [facility] [place] [facility] [address] [id number] [place] [address]- 9343 10 Sep, 2012 [facility] [place] [facility] [address] [id number] [place] [address]- 2797 07 Sep, 2012 [facility] [place] [facility] [address] [id number] [place] [address]- 3709 Sep, [facility] [address] [id number] [place] [address]- 2989 Sep, [facility] [address] [id number] [place] [address]- 3723 August, [facility] [address] [id number] [place] [address]- 5947 August, [facility] [address] [id number] [place] [address]- 6632 August, [facility] [address] [id number] [place] [address]- 4908 August, [facility] [address] [id number] [place] [address]- 1957 August, [facility] [address] [id number] [place] [address]- 1479 August, [facility] [address] [id number] [place] [address]- 0715 August, [facility] [address] [id number] [place] [address]- 3861 August, [facility] [address] [id number] [place] [address]- 3198 Jul, [facility] [address] [id number] [place] [address]- 6561 Jul, [facility] [address] [place] [id number] Jul [facility] [address] [id number] [place] [address]- 0018 Jun, [facility] [address] [id number] [place] [address]- 1369 Jun, [facility] [address] [id number] [place] [address]- 5669 Jun, [facility] [address] [id number] [place] [address]- 9391 Jun, [facility] [address] [id number] [place] [address]- 6650 Jun, [facility] [place] [facility] [address] [id number] [place] [address]- 5513 Jun, [facility] [address] [id number] [place] [address]- 4477 May, [facility] [address] [id number] [place] [address]- 8401 May, [facility] [address] [id number] [place] [address]- 0336 May, [facility] [address] [id number] [place] [address]- 5318 May, [facility] [address] [id number] [place] [address]- 4359 May, [facility] [address] [id number] [place] [address]- 5863 Apr, [facility] [address] [id number] [place] [address]- 8026 Apr, [facility] [address] [id number] [place] [address]- 2330 Apr, [facility] [address] [id number] [place] [address]- 3205 Apr, [facility] [address] [id number] [place] [address]- 1305 Apr, [facility] [place] [facility] [address] [id number] [place] [address]- 6681 Apr, [facility] [place] [facility] [address] [id number] [place] [address]- 7031 Mar, [facility] [address] [id number] [place] [address]- 0713 20 Mar, 2012 [facility] [place] [facility] [address] [id number] [place] [address]- 8547 20 Mar, 2012 [facility] [place] [facility] [address] [id number] [place] [address]- 0546 19 Mar, 2012 [facility] [place] [facility] [address] [id number] [place] [address]- 1346 19 Mar, 2012 [facility] [place] [facility] [address] [id number] [place] 1309 18 Mar, 2012 [facility] [place] [facility] [address] [id number] [place] [address]- 5438 18 Mar, 2012 [facility] [place] [facility] [address] [id number] [place] [address]- 1547 Mar, [facility] [place] [facility] [address] [id number] [place] [address]- 5650 Mar, [facility] [place] [facility] [address] [id number] [place] [address]- 3233 05 Mar, 2012 [facility] [place] [facility] [address] [id number] [place] [address]- 3404 05 Mar, 2012 [facility] [place] [facility] [address] [id number] [place] [address]- 0136 28 Feb, 2012 [facility] [place] [facility] [address] [id number] [place] [address]- 7603 28 Feb, 2012 [facility] [place] [facility] [address] [id number] [place] [address]- 0483 Feb, [facility] [place] [facility] [address] [id number] [place] [address]- 2416 Feb, [facility] [place] [facility] [address] [id number] [place] [address]- 0039 Feb, [facility] [place] [facility] [address] [id number] [place] [address]- 7066 16 Feb, 2012 [facility] [place] [facility] [address] [id number] [place] [address]- 0915 16 Feb, 2012 [facility] [place] [facility] [address] [id number] [place] [address]- 3200 Feb, [facility] [place] [facility] [address] [id number] [place] [address] Feb, [facility] [place] [facility] [address] [id number] [place] [address]- 4770 Feb, [facility] [place] [facility] [address] [id number] [place] [address]- 8674 Feb, [facility] [place] [facility] [address] [id number] [place] [address]- 5684 Jan, [facility] [place] [facility] [address] [id number] [place] [address]- 1679 Jan, [facility] [place] [facility] [address] [id number] [place] [address]- 3874 Jan, [facility] [place] [facility] [address] [id number] [place] [address]- 8476 Jan, [facility] [place] [facility] [address] [id number] [place] [address]- 3722 Jan, [facility] [place] [facility] [address] [facility] [id number] [place] [address]- 2072 Jan, [facility] [place] [facility] [address] [id number] [place] [address]- 5955 09 Jan, 2012 [facility] [place] [facility] [address] [id number] [place] [address]- 0363 24 Sep2011 [facility] [place] [facility] [address] [id number] [place] [address]- 2616 17 Sep2011 [facility] [place] [facility] [address] [id number] [place] [address]- 3026 13 Sep2011 [facility] [place] [facility] [address] [id number] [place] [address]- 6520 Dec, [facility] [place] [facility] [address] [id number] [place] [address]- 0291 Nov, [facility] [place] [facility] [address] [id number] [place] [address]- 2136 Nov, [facility] [place] [facility] [address] [id number] [place] [address]- 6082 Nov, [facility] [place] [facility] [address] [id number] [place] [address]- 2528 Nov, [facility] [place] [facility] [address] [id number] [place] [address]- 6941 Nov, [facility] [place] [facility] [address] [id number] [place] [address]- 2686 Nov, [facility] [place] [facility] [address] [id number] [place] [address]- 7211 Nov, [facility] [place] [facility] [address] [id number] [place] [address]- 5416 Nov, [facility] [place] [facility] [address] [id number] [place] [address]- 2857 Nov, [facility] [place] [facility] [address] [id number] [place] [address]- 8080 Nov, [facility] [place] [facility] [address] [id number] [place] [address]- 4456 Nov, [facility] [place] [facility] [address] [id number] [place] [address]- 4985 Nov, [facility] [place] [facility] [address] [id number] [place] [address]- 3034 Nov, [facility] [place] [facility] [address] [id number] [place] [address]- 8367 Oct, [facility] [place] [facility] [address] [id number] [place] [address]- 1142 Oct, [facility] [place] [facility] [address] [id number] [place] [address]- 6554 Oct, [facility] [place] [facility] [address] [id number] [place] [address]- 5373 Oct, [facility] [place] [facility] [address] [id number] [place] [address]- 3358 Oct, [facility] [place] [facility] [address] [id number] [place] [address]- 5330 Oct, [facility] [place] [facility] [address] [id number] [place] [address]- 4354 Oct, [facility] [place] [facility] [address] [id number] [place] [address]- 4868 Oct, [facility] [place] [facility] [address] [id number] [place] [address]- 7015 Oct, [facility] [place] [facility] [address] [id number] [place] [address]- 6418 Sep, [facility] [place] [facility] [address] [id number] [place] [address]- 2852 Sep, [facility] [place] [facility] [address] [id number] [place] [address]- 6145 Sep, [facility] [place] [facility] [address] [id number] [place] [address]- 1374 Sep, [facility] [place] [facility] [address] [id number] [place] [address]- 5197 Sep, [facility] [place] [facility] [address] [id number] [place] [address]- 1957 Sep, [facility] [place] [facility] [address] [id number] [place] [address]- 8346 Sep, [facility] [place] [facility] [address] [id number] [place] [address]- 4761 Sep, [facility] [place] [facility] [address] [id number] [place] [address]- 7737 August, [facility] [place] [facility] [address] [id number] [place] [address]- 5639 August, [facility] [id number] [address] August, [facility] [id number] [address]65 August, [facility] [id number] [address] August, [facility] [id number] [address]- 8140 August, [facility] [id number] [address] [address]90 August, [facility] [id number] [address]- 5290 August, [facility] [id number] [address]- 8926 August, [facility] [id number] [address]- 2180 August, [facility] [id number] [address]- 2783 August, [facility] [address] [id number] [address]- 0494 August, [facility] [address] [id number] [address]- 9543 Oct, IMMUNIZATIONS No Known Immunizations SOCIAL HISTORY Never Assessed REASON FOR VISIT Medication refill request PLAN OF CARE VITAL SIGNS MEDICATIONS Medication Instructions Dosage Frequency Start Date End Date Duration Status Chlorhexidine Gluconate 4 % Externally daily -avoid face, head, genitals as directed Jul, Oct, 10 days Active RESULTS No Results PROCEDURES [...]
--- OUTSIDE RECORDS SUMMARY | 2018-02-11 13:27 | XMS REPORT ---
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 [facility] [id number] [place] [address] 51615- 0052 Apr, [facility] [id number] [place] [address] 85118- 7656 Apr, [facility] [id number] [place] [address] 17708- 8422 Apr, Dysuria R30.0 and Well woman exam (no gynecological exam) Z00.00 [facility] [id number] [place] [address] 86855- 1056 Mar, [facility] [id number] [place] [address] 12792- 6581 Mar, [facility] [id number] [place] [address] [id number] Mar, Dental examination Z01.20 [facility] [place] [id number] [place] [address] 07668- 2030 Mar, Chronic diarrhea K52.9 ; Intractable vomiting with nausea, vomiting of unspecified type R11.2 ; Cellulitis, unspecified cellulitis site L03.90 ; Type 2 diabetes mellitus with diabetic polyneuropathy E11.42 and Postinflammatory hyperpigmentation L81.0 [facility] [id number] [place] [address] 52072- 6186 Mar, Unspecified mood [affective] disorder F39 [facility] [id number] [place] [address] 86726- 5363 Mar, Unspecified mood [affective] disorder F39 [facility] [address] [facility] [id number], [place] [address]- 1336 Mar, [facility] [address] [facility] [id number], [place] [address]- 8760 Mar, [facility] [address] [facility] [id number], [place] [address]- 1135 Mar, [facility] [address] [facility] [id number], [place] [address]- 9591 Mar, [facility] [address] [facility] [id number], [place] [address]- 3964 Mar, [facility] [address] [facility] [id number], [place] [address]- 3294 Mar, [facility] [address] [facility] [id number], [place] [address]- 7283 Feb, Unspecified mood [affective] disorder F39 [facility] [address] [facility] [id number], [place] [address]- 9416 Feb, [facility] [address] [facility] [id number], [place] [address]- 7055 Feb, [facility] [id number], [place] [address]- 8540 Jan, Unspecified mood [affective] disorder F39 [facility] [id number] [id number] [id number] Jan, Encounter for dental examination Z01.20 [facility] [address] [facility] [id number], [place] [address]- 5465 Jan, [facility] [id number], [place] [address]- 0223 Jan, [facility] [id number], [place] [address]- 8999 Jan, [facility] [id number], [place] [address]- 5873 Jan, [facility] [id number] [place] [address] 32310- 1009 Jan, [facility] [id number] [place] [address] 02444- 3778 Jan, Abdominal abscess K65.1 and Dental caries K02.9 [facility] [id number] [place] [address] 79098- 1997 Jan, [facility] [id number] [place] [address] 16348- 3263 30 Dec, 2014 Diabetes with neurological manifestations, type II or unspecified type, not stated as uncontrolled 250.60 ; Essential hypertension, benign 401.1 ; Concussion 850.9 and Skin texture changes 782.8 [facility] [id number] [place] [address] 44791- 1129 Dec, [facility] [id number] [place] [address] 17421- 9295 24 Dec, 2014 [facility] [id number] [place] [address] 44644- 5580 Dec, [facility] [id number] [place] [address] 76911- 9886 Dec, [facility] [address] [place] [address] 23504- 5581 17 Dec, 2014 Affective disorder 296.90 [facility] [id number] [place] [address] 36780- 9063 14 Dec, 2014 [facility] [address] [place] [address] 19072- 6388 10 Dec, 2014 Affective disorder 296.90 [facility] [address] [place] [address] 59325- 3203 04 Dec, 2014 [facility] [address] [place] [address] 18665- 4294 04 Dec, 2014 [facility] [id number], [place] [address] 2546 Dec, [facility] [address], [place] [address] 2546 Dec, [facility] [id number], [place] [address] 2546 Nov, Affective disorder 296.90 [facility] [id number] [place] [address] 08054 2546 Nov, [facility] [id number] [place] [address] 43177 2546 Nov, Affective disorder 296.90 [facility] [address] [place] [address] 58846 2546 Nov, Diarrhea 787.91 [facility] [id number] [place] [address] 49095 2546 Nov, [facility] [id number] [place] [address] 48404 2546 Nov, Diarrhea 787.91 [facility] [id number] [place] [address] 52712 2546 Nov, Diarrhea 787.91 and Hyperlipidemia 272.4 [facility] [address], [place] [address] 2546 Nov, Diarrhea 787.91 [facility] [id number], [place] [address] 2546 Nov, Affective disorder 296.90 [facility] [id number], [place] [address] 2546 Nov, Affective disorder 296.90 [facility] [id number], [place] [address] 2546 Nov, Affective disorder 296.90 [facility] [id number], [place] [address] 2546 Nov, [facility] [id number], [place] [address]- 5001 Nov, [facility] [id number], [place] [address]- 7802 Nov, [facility] [id number], [place] [address]- 5746 Nov, Episodic mood disorder 296.90 [facility] [address] [place] [address] 38355- 0117 Nov, [facility] [id number], [place] [address]- 5205 Nov, [facility] [id number] [place] [address] 99067- 3565 Nov, [facility] [id number] [place] [address] 37158- 4561 Nov, [facility] [id number] [place] [address] 52651- 4652 Nov, [facility] [address], [place] [address]- 8890 Nov, Lymphedema 457.1 ; Hyperlipidemia 272.4 ; Essential hypertension, benign 401.1 and Numbness of toes 782.0 [facility] [address], [place] [address]- 4778 Nov, Episodic mood disorder 296.90 [facility] [id number], [place] [address]- 9081 Oct, [facility] [id number], [place] [address]- 8487 Oct, [facility] [id number], [place] [address]- 2554 Oct, [facility] [id number], [place] [address]- 7643 Oct, [facility] [id number], [place] [address]- 8420 14 Oct, 2014 [facility] [address] [facility] [id number] [place] [address]- 5014 Oct, [facility] [address] [facility] [id number]- 1381 Oct, 2014 [facility] [address] [facility] [id number], [place] [address]- 6522 Oct, [facility] [address] [facility] [id number], [place] [address]- 4250 Oct, Episodic mood disorder 296.90 [facility] [address] [facility] [id number], [place] [address]- 3890 30 Sep, 2014 [facility] [address] [facility] [id number], [place] [address]- 0497 Sep, [facility] [id number], [place] [address]- 7884 Sep, [facility] [address] [facility] [id number], [place] [address]- 8177 Sep, [facility] [id number], [place] [address]- 8914 Sep, [facility] [id number], [place] [address]- 3319 Sep, Episodic mood disorder 296.90 [facility] [id number], [place] [address]- 1597 Sep, Unspecified episodic mood disorder 296.90 [facility] [address] [facility] [id number], [place] [address]- 3245 Sep, [facility] [address] [facility] [id number], [place] [address]- 8649 Sep, [facility] [address] [facility] [id number], [place] [address]- 0846 16 Sep, 2014 Episodic mood disorder 296.90 [facility] [address] [facility] [id number], [place] [address]- 0968 Sep, [facility] [id number], [place] [address]- 8033 Sep, [facility] [id number] [place] [address] 90547- 2513 Sep, [facility] [id number] [place] [address] 98055- 7204 Sep, Hematemesis 578.0 and Vomiting 787.03 [facility] [id number] [place] [address] 70091- 8603 Sep, Episodic mood disorder 296.90 [facility] [id number] [place] [address] 78841- 9414 Sep, [facility] [id number] [place] [address] 85111- 9757 Sep, [facility] [id number] [place] [address] 10207- 6570 Sep, Diabetes mellitus without mention of complication, type II or unspecified type, not stated as uncontrolled 250.00 and Other chronic pain 338.29 [facility] [id number] [place] [address]57- 0139 Sep, Episodic mood disorder 296.90 [facility] [id number] [address] Sep, [facility] [id number] [place] [address] 86039- 0111 Sep, Episodic mood disorder 296.90 [facility] [id number] [address] Sep, [facility] [id number] [place] [address] 94986- 7517 August, [facility] [id number] [address] August, [facility] [id number] [place] [address] August, Episodic mood disorder 296.90 [facility] [address] [id number] [place] [address] August, [facility] [id number] [address] August, Unspecified episodic mood disorder 296.90 [facility] [address] [facility] [id number] [place] [address] 1846 August, Vomiting 787.03 [facility] [address] [facility] [id number] [place] [address] August, [facility] [id number] [place] [address]255 August, [facility] [id number] [place] [address] 14[address] August, [facility] [id number] [place] [address] 9673 August, [facility] [id number] [address]- 1821 August, [facility] [id number] [place] [address]- 1333 Jul, [facility] [id number] [place] [address] Jul, [facility] [id number] [place] [address] 7877 Jul, [facility] [id number] [address] Jun, [facility] [id number] 8732 Jun, [facility] [id number] [place] [address]- 2241 Jun, [facility] [id number] [place] [address]- 8815 30 Jun, 2014 [facility] [place] [facility] [address] [id number] [place] [address]- 1504 30 Jun, 2014 [facility] [place] [facility] [address] [id number] [place] [address]- 3826 Jun, [facility] [place] [facility] [address] [id number] [place] [address]- 2215 30 Jun, 2014 [facility] [place] [facility] [address] [id number] [place] [address]- 7006 30 Jun, 2014 [facility] [place] [facility] [address] [id number] [place] [address]- 1383 Jun, [facility] [place] [facility] [address] [id number] [place] [address]- 6789 Jun, [facility] [place] [facility] [address] [id number] [place] [address]- 5938 Jun, [facility] [place] [facility] [address] [id number] [place] [address]- 8998 Jun, [facility] [place] [facility] [address] [id number] [place] [address]- 3589 Jun, [facility] [place] [facility] [address] [id number] [place] [address]- 8342 Jun, [facility] [place] [facility] [address] [id number] [place] [address]- 5234 Jun, [facility] [place] [facility] [address] [id number] [place] [address]- 9331 Jun, [facility] [place] [facility] [address] [id number] [place] [address]- 5664 Jun, [facility] [place] [facility] [address] [id number] [place] [address]- 5681 Jun, [facility] [place] [facility] [address] [id number] [place] [address]- 2066 Jun, [facility] [place] [facility] [address] [id number] [place] [address]- 3910 21 Jun, 2014 [facility] [place] [facility] [address] [id number] [place] [address]- 3229 21 Jun, 2014 [facility] [facility] [address] [id number] [place] [address] 20 Jun, 2014 [facility] [place] [facility] [address] [id number] [place] [address] 2240 20 Jun, 2014 [facility] [place] [facility] [address] [id number] [place] [address] 4466 20 Jun, 2014 [facility] [place] [facility] [address] [id number] [place] [address] 9614 20 Jun, 2014 [facility] [place] [facility] [address] [id number] [place] [address] 6678 19 Jun, 2014 [facility] [place] [facility] [address] [id number] [place] [address] 1890 19 Jun, 2014 [facility] [place] [facility] [address] [id number] [place] [address] 2712 18 Jun, 2014 [facility] [place] [facility] [address] [id number] [place] [address]- 1735 18 Jun, 2014 [facility] [place] [facility] [address] [id number] [place] [address]- 9955 17 Jun, 2014 [facility] [place] [facility] [address] [id number] [place] [address]- 0759 17 Jun, 2014 [facility] [place] [facility] [address] [id number] [place] [address]- 0477 16 Jun, 2014 [facility] [place] [facility] [address] [id number] [place] [address]- 4529 16 Jun, 2014 [facility] [place] [facility] [address] [id number] [place] [address]- 7827 16 Jun, 2014 [facility] [place] [facility] [address] [id number] [place] [address]- 6749 16 Jun, 2014 [facility] [place] [facility] [address] [id number] [place] [address]- 8619 16 Jun, 2014 [facility] [place] [facility] [address] [id number] [place] [address]- 8286 16 Jun, 2014 [facility] [place] [facility] [address] [id number] [place] [address]- 8736 13 Jun, 2014 [facility] [place] [facility] [address] [id number] [place] [address]- 9195 13 Jun, 2014 [facility] [place] [facility] [address] [id number] [place] [address]- 3501 Jun, [facility] [place] [facility] [address] [id number] [place] [address]- 7190 Jun, [facility] [place] [facility] [address] [id number] [place] [address]- 6429 Jun, [facility] [place] [facility] [address] [id number] [place] [address]- 4088 Jun, [facility] [place] [facility] [address] [id number] [place] [address]- 8491 Jun, [facility] [address] [id number] [place] [address]- 0053 Jun, [facility] [place] [facility] [address] [id number] [place] [address]- 4192 Jun, [facility] [place] [facility] [address] [id number] [place] [address]- 8846 Jun, 2014 [facility] [place] [facility] [address] [id number] [place] [address]- 9059 Jun, [facility] [place] [facility] [address] [id number] [place] [address]- 0821 Jun, 2014 [facility] [place] [facility] [address] [id number] [place] [address]- 1183 Jun, 2014 [facility] [place] [address] [id number] [place] [address]- 4340 Jun, [facility] [place] [address] [id number] [place] [address]- 4454 Jun, [facility] [place] [facility] [address] [facility] [id number] [place] [address]- 1164 Jun, [facility] [place] [facility] [address] [id number] [place] [address]- 0918 Jun, [facility] [address] [facility] [id number] [place] [address]- 3364 Jun, [facility] [place] [address] [id number] [place] [address]- 9366 Jun, [facility] [address] [facility] [id number] [place] [address]- 7707 Jun, [facility] [address] [facility] [id number] [place] [address]- 1945 May, 2014 [facility] [facility] [address] [facility] [id number] [place] [address]- 8022 May, [facility] [place] [facility] [address] [facility] [id number] [place] [address]- 0976 May, [facility] [place] [facility] [address] [facility] [id number] [place] [address]- 4054 May, [facility] [place] [facility] [address] [facility] [id number], [place] [address]- 6470 May, 2014 [facility] [address] [facility] [id number] [place] [address]- 0834 May, [facility] [address] [facility] [id number] [place] [address]- 9736 May, 2014 [facility] [address] [facility] [id number] [place] [address]- 8674 May, 2014 [facility] [address] [facility] [id number], [place] [address]- 8[address] 20 May, 2014 [facility] [address] [id number] [place] [address]- 0141 20 May, 2014 [facility] [address] [facility] [id number] [place] [address]- 4228 18 May, 2014 [facility] [address] [facility] [id number] [place] [address]- 4042 18 May, 2014 [facility] [address] [facility] [id number] [place] [address]- 1930 13 May, 2014 [facility] [address] [facility] [id number] [place] [address]- 0826 13 May, 2014 [facility] [address] [id number] [address] 9509 11 May, 2014 [facility] [address] [id number] [place] [address]- 6725 11 May, 2014 [facility] [address] [facility] [id number] [place] [address]- 3448 May, 2014 [facility] [address] [id number] [place] [address]- 5771 May, 2014 [facility] [address] [id number] [place] [address]- 5314 09 May, 2014 [facility] [address] [facility] [id number] [place] [address]- 2288 May, 2014 [facility] [address] [facility] [id number] [place] [address]- 2547 May, 2014 [facility] [address] [facility] [id number] [place] [address]- 6905 May, 2014 [facility] [address] [facility] [id number], [place] [address]- 1549 05 May, 2014 [facility] [address] [facility] [id number], [place] [address]- 8672 May, [facility] [address] [id number] [place] [address]- 1844 May, [facility] [address] [id number] [place]84 May, [facility] [address] [id number] [place] [address]- 5329 May, [facility] [address] [id number] [place] [address]- 2736 Apr, [facility] [address] [id number] [place] [address]- 2513 Apr, [facility] [address] [id number] [place] [address]- 5132 Apr, [facility] [address] [id number] [place] [address]- 4928 Apr, [facility] [address] [id number] [place] [address]- 7967 Apr, [facility] [address] [id number] [place] [address]- 6309 Apr, [facility] [address] [id number] [place] [address]- 9223 Apr, [facility] [address] [id number], [place] [address]- 3140 Apr, [facility] [address] [id number], [place] [address]- 4747 Apr, [facility] [address] [id number], [place] [address]- 5239 Apr, [facility] [address] [id number], [place] [address]- 5511 Apr, [facility] [address] [id number] [place] [address]- 4241 Apr, [facility] [address] [id number] [place] [address]- 1672 Apr, [facility] [address] [id number] [place] [address]- 5342 Apr, [facility] [address] [id number] [place] [address]- 0857 Apr, [facility] [address] [id number] [place] [address]- 0073 Apr, [facility] [address] [id number] [place] [address]- 9922 Apr, [facility] [address] [id number] [place] [address]- 2559 Apr, [facility] [address] [id number] [place] [address]- 9759 Apr, [facility] [address] [id number] [place] [address]- 5674 Apr, [facility] [address] [id number] [place] [address]- 5411 Mar, [facility] [address] [id number] [place] [address]- 9501 Mar, [facility] [address] [id number] [place] [address]- 6629 Mar, [facility] [address] [id number] [place] [address]- 2018 Mar, [facility] [address] [id number] [place] [address]- 4828 Mar, [facility] [address] [id number] [place] [address]- 1591 Mar, [facility] [address] [id number] [place] [address]- 4456 Mar, [facility] [address] [id number] [place] [address]- 5000 Mar, [facility] [address] [id number] [place] [address]- 1087 15 Mar, 2014 [facility] [address] [id number] [place] [address]- 3541 Mar, [facility] [address] [id number] [place] [address]- 0216 15 Mar, 2014 [facility] [address] [id number] [place] [address]- 9317 Mar, [facility] [address] [id number] [place] [address]- 2035 Mar, [facility] [address] [id number] [place] [address]- 3055 Mar, [facility] [address] [id number] [place] [address]- 6730 Mar, [facility] [address] [id number] [place] [address]- 9163 Mar, [facility] [address] [id number] [place] [address]- 5076 Feb, [facility] [address] [id number] [place] [address]- 6533 Feb, [facility] [address] [id number] [place] [address]- 9098 Feb, [facility] [address] [id number], [place] [address]- 1571 Feb, [facility] [address] [id number] [place] [address]- 8656 Feb, [facility] [address] [id number] [place] [address]- 5545 Feb, [facility] [address] [id number] [place] [address]- 2828 Feb, [facility] [address] [id number] [place] [address]- 2011 18 Feb, 2014 [facility] [address] [id number] [place] [address]- 9540 18 Feb, 2014 [facility] [address] [id number] [place] [address]- 6834 17 Feb, 2014 [facility] [address] [id number] [place] [address]- 0163 17 Feb, 2014 [facility] [address] [id number] [place] [address]- 1020 17 Feb, 2014 [facility] [address] [id number] [place] [address]- 7518 17 Feb, 2014 [facility] [address] [id number] [place] [address]- 1576 14 Feb, 2014 [facility] [address] [id number] [place] [address]- 9121 14 Feb, 2014 [facility] [address] [id number] [place] [address]- 8716 14 Feb, 2014 [facility] [address] [id number] [place] [address]- 1027 14 Feb, 2014 [facility] [address] [facility] [id number] [place] [address]- 1059 10 Feb, 2014 [facility] [address] [id number] [place] [address]- 0163 Feb, [facility] [address] [id number] [place] [address]- 5547 Feb, [facility] [facility] [address] [id number] [place] [address]- 9369 Feb, [facility] [facility] [address] [id number] [place] [address]- 6963 30 Jan, 2014 [facility] [address] [id number] [place] [address]- 0991 30 Jan, 2014 [facility] [address] [id number] [place] [address]- 7532 30 Jan, 2013 [facility] [address] [id number] [place] [address]- 3849 30 Jan, 2014 [facility] [address] [id number] [place] [address]- 2919 Jan, [facility] [address] [id number] [place] [address]- 8327 24 Jan, 2014 [facility] [facility] [address] [id number] [place] [address]- 0471 Jan, [facility] [address] [id number] [place] [address]- 8358 Jan, [facility] [address] [id number] [place] [address]- 7006 Jan, [facility] [address] [id number] [place] [address]- 2669 Jan, [facility] [address] [id number] [place] [address]- 1674 Jan, [facility] [facility] [address] [id number] [place] [address]- 6597 17 Jan, 2014 [facility] [address] [id number] [place] [address]- 1720 Jan, [facility] [place] [facility] [address] [id number] [place] [address]- 5478 17 Jan, 2014 [facility] [place] [facility] [address] [id number] [place] [address]- 9116 15 Jan, 2014 [facility] [place] [address] [id number] [place] [address]- 6958 15 Jan, 2014 [facility] [place] [facility] [address] [id number] [place] [address]- 9018 14 Jan, 2014 [facility] [place] [address] [id number] [place] [address]- 6510 14 Jan, 2014 [facility] [place] [facility] [address] [id number] [place] [address]- 3919 13 Jan, 2014 [facility] [place] [facility] [address] [id number] [place] [address]- 5319 13 Jan, 2014 [facility] [place] [facility] [address] [id number] [place] [address]- 5127 Jan, [facility] [place] [facility] [address] [id number] [place] [address]- 4248 Jan, [facility] [place] [facility] [address] [id number] [place] [address]- 7187 Jan, [facility] [place] [facility] [address] [id number] [place] [address]- 6232 Jan, [facility] [place] [facility] [address] [id number] [place] [address]- 0238 Jan, [facility] [place] [facility] [address] [id number], [place] [address]- 3289 25 Dec, 2013 [facility] [place] [facility] [address] [id number] [place] [address]- 1720 25 Dec, 2013 [facility] [place] [facility] [address] [id number] [place] [address]- 9117 23 Dec, 2013 [facility] [place] [facility] [address] [id number], [place] [address]- 5316 23 Dec, 2013 [facility] [place] [facility] [address] [id number], [place] [address]- 6461 19 Dec, 2013 [facility] [place] [facility] [address] [id number] [place] [address]- 2548 19 Dec, 2013 [facility] [place] [facility] [address] [id number], [place] [address]- 6534 17 Dec, 2013 [facility] [place] [facility] [address] [id number] [place] [address]- 2540 17 Dec, 2013 [facility] [place] [facility] [address] [id number] [place] [address]- 4574 09 Sep, 2013 [facility] [place] [facility] [address] [id number] [place] [address] 2546 09 Sep, 2013 [facility] [place] [facility] [address] [id number] [place] [address]- 7456 08 Dec, 2013 [facility] [place] [facility] [address] [id number] [place] [address]- 2228 08 Dec, 2013 [facility] [place] [facility] [address] [id number] [place] [address]- 5822 Dec, 2013 [facility] [place] [facility] [address] [id number] [place] [address]- 6701 Dec, 2013 [facility] [place] [facility] [address] [id number] [place] [address]- 6343 Dec, 2013 [facility] [place] [facility] [address] [id number] [place] [address]- 1207 Dec, 2013 [facility] [place] [facility] [address] [id number] [place] [address]- 3408 Dec, 2013 [facility] [place] [facility] [address] [id number] [place] [address]- 5470 Dec, 2013 [facility] [place] [facility] [address] [id number] [place] [address]- 0508 Nov, [facility] [place] [facility] [address] [id number] [place] [address]- 2544 Nov, [facility] [place] [facility] [address] [id number] [place] [address]- 2543 Nov, [facility] [place] [facility] [address] [id number] [place] [address]- 1416 Nov, [facility] [place] [facility] [address] [id number] [place] [address]- 9530 Nov, [facility] [place] [facility] [address] [id number] [place] [address]- 1207 Nov, [facility] [place] [facility] [address] [id number] [place] [address]- 0374 Nov, [facility] [place] [facility] [address] [id number] [place] [address]- 5862 Nov, [facility] [place] [facility] [address] [id number] [place] [address]- 7751 Nov, [facility] [place] [facility] [address] [id number] [place] [address]- 9986 Nov, [facility] [place] [facility] [address] [id number] [place] [address]- 7581 Nov, [facility] [place] [facility] [address] [id number] [place] [address]- 2903 Nov, [facility] [place] [facility] [address] [id number] [place] [address]- 1607 Oct, [facility] [place] [facility] [address] [id number] [place] [address]- 3835 Oct, [facility] [place] [facility] [address] [id number] [place] [address]- 3986 Oct, [facility] [place] [facility] [address] [id number] [place] [address]- 3411 Oct, [facility] [place] [facility] [address] [id number] [place] [address]- 6939 Oct, [facility] [place] [facility] [address] [id number] [place] [address]- 3754 Oct, [facility] [place] [facility] [address] [id number] [place] [address]- 0492 Oct, [facility] [place] [facility] [address] [id number] [place] [address]- 8600 Oct, [facility] [place] [facility] [address] [id number] [place] [address]- 6624 Oct, [facility] [place] [facility] [address] [id number] [place] [address]- 9195 22 Oct, 2013 [facility] [place] [facility] [address] [id number] [place] [address]- 3972 16 Oct, 2013 [facility] [place] [facility] [address] [id number] [place] [address]- 7967 16 Oct, 2013 [facility] [place] [facility] [address] [id number] [place] [address]- 5745 14 Oct, 2013 [facility] [place] [facility] [address] [id number] [place] [address]- 5600 14 Oct, 2013 [facility] [place] [facility] [address] [id number] [place] [address]- 8112 13 Oct, 2013 [facility] [place] [facility] [address] [id number] [place] [address]- 6655 13 Oct, 2013 [facility] [place] [facility] [address] [id number] [place] [address]- 8848 Oct, [facility] [place] [facility] [address] [id number] [place] [address]- 7830 27 Sep, 2013 [facility] [place] [facility] [address] [id number] [place] [address]- 1671 27 Sep, 2013 [facility] [place] [facility] [address] [id number] [place] [address]- 6113 Sep, [facility] [place] [facility] [address] [id number] [place] [address]- 7399 20 Sep, 2013 [facility] [place] [facility] [address] [id number] [place] [address]- 5665 18 Sep, 2013 [facility] [place] [facility] [address] [id number] [place] [address] 18 Sep, 2013 [facility] [place] [facility] [address] [id number] [place] [address] 17 Sep, 2013 [facility] [place] [facility] [address] [id number] [place] [address] 17 Sep, 2013 [facility] [place] [facility] [address] [id number] [place] [address] Sep, [facility] [place] [facility] [address] [id number] [place] [address] Sep, [facility] [place] [facility] [address] [id number] [place] [address] Sep, [facility] [place] [facility] [address] [id number] [place] [address] Sep, [facility] [place] [facility] [address] [id number] [place] [address] Sep, [facility] [place] [facility] [address] [id number] [place] [address] Sep, [facility] [place] [facility] [address] [id number] [place] [address] Sep, [facility] [place] [facility] [address] [id number] [place] [address] Sep, [facility] [place] [facility] [address] [id number] [place] [address] Sep, [facility] [place] [facility] [address] [id number] [place] [address] Sep, [facility] [place] [facility] [address] [id number] [place] [address] Sep, [facility] [place] [facility] [address] [id number] [place] [address] Sep, [facility] [place] [facility] [address] [id number] [place] [address] Sep, [facility] [place] [facility] [address] [id number] [place] [address] Sep, [facility] [place] [facility] [address] [id number] [place] [address] August, [facility] [place] [facility] [address] [id number] [place] [address] August, [facility] [address] [id number] [place] [address] August, [facility] [place] [facility] [address] [id number] [place] [address]68 August, [facility] [place] [facility] [address] [id number] [place] [address] August, [facility] [place] [facility] [address] [id number] [place] [address] August, [facility] [place] [facility] [address] [id number] [place] [address] August, [facility] [place] [facility] [address] [id number] [place] [address] August, [facility] [place] [facility] [address] [id number] [place] [address] August, [facility] [place] [facility] [address] [id number] [place] [address] August, [facility] [place] [facility] [address] [id number] [place] [address] August, [facility] [place] [facility] [address] [id number] [place] [address] Jul, [facility] [place] [facility] [address] [id number] [place] [address] Jul, [facility] [place] [facility] [address] [id number] [place] [address] 99[address] Jul, [facility] [place] [facility] [address] [id number] [place] [address] 17[address] Jul, [facility] [place] [facility] [address] [id number] [place] [address] 9465 Jul, [facility] [place] [facility] [address] [id number] [place] [address] 34[address] Jul, [facility] [place] [facility] [address] [id number] [place] [address] Jul, [facility] [place] [facility] [address] [id number] [place] [address] 21 Jul, 2013 [facility] [place] [facility] [address] [id number] [place] [address]237 18 Jul, 2013 [facility] [place] [facility] [address] [id number] [place] [address]99 18 Jul, 2013 [facility] [place] [facility] [address] [id number] [place] [address] 16 Jul, 2013 [facility] [place] [facility] [address] [id number] [place] [address] Jul, [facility] [place] [facility] [address] [id number] [place] [address] 17[address] Jul, [facility] [place] [facility] [address] [id number] [place] [address] 5667 Jul, [facility] [place] [facility] [address] [id number] [place] [address]- [address]228 11 Jul, 2013 [facility] [place] [facility] [address] [id number] [place] [address]265 Jul, [facility] [place] [facility] [address] [id number] [place] [address] 10 Jul, 2013 [facility] [place] [facility] [address] [id number] [place] [address]- [address] 05 Jul, 2013 [facility] [place] [facility] [address] [id number] [place] [address] Jul, [facility] [place] [facility] [address] [id number] [place] [address] 98[address] Jul, [facility] [place] [facility] [address] [id number] [place] [address]- [address] Jul, [facility] [place] [facility] [address] [id number] [place] [address] 38[address] Jul, [facility] [place] [facility] [address] [id number] [place] [address]31 Jul, [facility] [place] [facility] [address] [id number] [place] [address] 20[address] Jun, [facility] [place] [facility] [address] [id number] [place] [address]- 97[address] Jun, [facility] [place] [facility] [address] [id number] [place] [address]- 8027 Jun, [facility] [place] [facility] [address] [id number] [place] [address] Jun, [facility] [place] [facility] [address] [id number] [place] [address] 0010 Jun, [facility] [place] [facility] [address] [id number] [place] [address]- 270[address] Jun, [facility] [place] [facility] [address] [id number] [place] [address] 3330 Jun, [facility] [place] [facility] [address] [id number] [place] [address] 5841 Jun, [facility] [place] [facility] [address] [id number] [place] [address]- 9546 Jun, [facility] [place] [facility] [address] [id number] [place] [address] 5838 Jun, [facility] [place] [facility] [address] [id number] [place] [address] 0948 Jun, [facility] [place] [facility] [address] [id number] [place] [address]326 Jun, [facility] [place] [facility] [address] [id number] [place] [address]- 1066 May, [facility] [place] [facility] [address] [id number] [place] [address] May, [facility] [place] [facility] [address] [id number] [place] [address]777 Apr, [facility] [place] [facility] [address] [id number] [place] [address]- 0144 Apr, [facility] [place] [facility] [address] [id number] [place] [address]- [address]876 Apr, [facility] [place] [facility] [address] [id number] [place] [address] Apr, [facility] [place] [facility] [address] [id number] [place] [address] Apr, [facility] [place] [facility] [address] [id number] [place] [address] Apr, [facility] [place] [facility] [address] [id number] [place] [address] 7780 Apr, [facility] [place] [facility] [address] [id number] [place] [address] 67[address] Apr, [facility] [place] [facility] [address] [id number] [place] [address] Apr, [facility] [place] [facility] [address] [id number] [place] [address] 6857 Apr, [facility] [place] [facility] [address] [id number] [place] [address] 9985 Apr, [facility] [place] [facility] [address] [id number] [place] [address] 8212 16 Mar, 2013 [facility] [place] [facility] [address] [id number] [place] [address] 3899 Mar, [facility] [place] [facility] [address] [id number] [place] [address] 0760 Mar, [facility] [place] [facility] [address] [id number] [place] [address] 9863 Mar, [facility] [place] [facility] [address] [id number] [place] [address] 4825 Feb, [facility] [place] [facility] [address] [id number] [place] [address] 6163 Feb, [facility] [address] [id number] [place] [address]- 6513 Feb, [facility] [place] [facility] [address] [id number] [place] [address]- 6592 Feb, [facility] [address] [id number] [place] [address] 9715 Feb, [facility] [place] [facility] [address] [id number] [place] [address] 1080 Feb, [facility] [address] [id number] [place] [address]- 3030 Feb, [facility] [place] [facility] [address] [id number] [place] [address]- 6464 Feb, [facility] [place] [facility] [address] [id number] [place] [address]- 0895 Feb, [facility] [address] [id number] [place] [address]- 5564 Feb, [facility] [place] [facility] [address] [id number] [place] [address]- 0272 Feb, [facility] [address] [id number] [place] [address]- 9664 Jan, [facility] [place] [facility] [address] [id number] [place] [address]- 5185 Jan, [facility] [place] [facility] [address] [id number], [place] [address] 4175 Jan, [facility] [place] [facility] [address] [id number] [place] [address]- 5639 Jan, [facility] [place] [facility] [address] [id number] [place] [address]- 6430 Jan, [facility] [place] [facility] [address] [id number] [place] [address]- 5107 Jan, [facility] [place] [facility] [address] [id number] [place] [address]- 2801 03 Jan, 2013 [facility] [place] [facility] [address] [id number] [place] [address]- 5613 02 Jan, 2013 [facility] [place] [facility] [address] [id number] [place] [address]- 2742 30 Dec, 2012 [facility] [place] [facility] [address] [id number] [place] [address]- 1272 25 Dec, 2012 [facility] [place] [facility] [address] [id number] [place] [address]- 8675 18 Dec, 2012 [facility] [place] [facility] [address] [id number] [place] [address]- 2461 17 Dec, 2012 [facility] [place] [facility] [address] [id number] [place] [address]- 2922 17 Dec, 2012 [facility] [place] [facility] [address] [id number] [place] [address]- 2956 16 Dec, 2012 [facility] [place] [facility] [address] [id number] [place] [address]- 6297 13 Dec, 2012 [facility] [place] [facility] [address] [id number], [place] [address] 8036 11 Dec, 2012 [facility] [place] [facility] [address] [id number], [place] [address] 05 Dec, 2012 [facility] [place] [facility] [address] [id number], [place] [address] 7100 04 Dec, 2012 [facility] [place] [facility] [address] [id number] [place] [address]- 2466 30 Nov, 2012 [facility] [place] [facility] [address] [id number], [place] [address]- 3095 Nov, [facility] [place] [facility] [address] [id number], [place] [address]- [address] Nov, [facility] [place] [facility] [address] [id number], [place] [address] 1346 16 Nov, 2012 [facility] [place] [facility] [address] [id number] [place] [address]- 7038 14 Nov, 2012 [facility] [place] [facility] [address] [id number] [place] [address]- 6123 Nov, [facility] [place] [facility] [address] [id number] [place] [address]- 0575 Nov, [facility] [place] [facility] [address] [id number] [place] [address]- 3544 29 Oct, 2012 [facility] [place] [facility] [address] [id number] [place] [address]- 8247 Oct, [facility] [place] [facility] [address] [id number] [place] [address]- 5397 Oct, [facility] [place] [facility] [address] [id number] [place] [address]- 5191 Oct, [facility] [place] [facility] [address] [id number] [place] [address]- 8505 15 Oct, 2012 [facility] [place] [facility] [address] [id number] [place] [address]- 3003 Oct, [facility] [place] [facility] [address] [id number] [place] [address]- 4741 Sep, [facility] [place] [facility] [address] [id number] [place] [address]- 4804 28 Sep, 2012 [facility] [place] [facility] [address] [id number] [place] [address]- 4048 27 Sep, 2012 [facility] [place] [facility] [address] [id number] [place] [address]- 4656 14 Sep, 2012 [facility] [place] [facility] [address] [id number] [place] [address]- 6977 13 Sep, 2012 [facility] [place] [facility] [address] [id number] [place] [address]- 5141 10 Sep, 2012 [facility] [place] [facility] [address] [id number] [place] [address]- 9679 Sep, [facility] [address] [id number] [place] [address]- 6088 Sep, [facility] [address] [id number] [place] [address]- 2396 Sep, [facility] [address] [id number] [place] [address]- 5609 August, [facility] [address] [id number] [place] [address]- 3242 August, [facility] [address] [id number] [place] [address]- 3383 August, [facility] [address] [id number] [place] [address]- 4898 August, [facility] [address] [id number] [place] [address]- 6754 August, [facility] [address] [id number] [place] [address]- 9848 August, [facility] [address] [id number] [place] [address]- 9997 August, [facility] [address] [id number] [place] [address]- 6067 August, [facility] [address] [id number] [place] [address]- 1525 Jul, [facility] [address] [id number] [place] [address]- 3452 Jul, [facility] [address] [place] [id number] Jul [facility] [address] [id number] [place] [address]- 7916 Jun, [facility] [address] [id number] [place] [address]- 2862 Jun, [facility] [place] [facility] [address] [id number] [place] [address]- 7297 Jun, [facility] [address] [id number] [place] [address]- 6715 Jun, [facility] [place] [facility] [address] [id number] [place] [address]- 9783 Jun, [facility] [place] [facility] [address] [id number] [place] [address]- 4384 Jun, [facility] [address] [id number] [place] [address]- 6879 May, [facility] [place] [facility] [address] [id number] [place] [address]- 9258 May, [facility] [address] [id number] [place] [address]- 6969 May, [facility] [address] [id number] [place] [address]- 5941 May, [facility] [address] [id number] [place] [address]- 2958 May, [facility] [address] [id number] [place] [address]- 8235 Apr, [facility] [address] [id number] [place] [address]- 8814 Apr, [facility] [address] [id number] [place] [address]- 6461 Apr, [facility] [place] [facility] [address] [id number] [place] [address]- 3611 Apr, [facility] [place] [facility] [address] [id number] [place] [address]- 2213 Apr, [facility] [place] [facility] [address] [id number] [place] [address]- 5755 Apr, [facility] [place] [facility] [address] [id number] [place] [address]- 7166 26 Mar, 2012 [facility] [place] [facility] [address] [id number] [place] [address]- 0746 20 Mar, 2012 [facility] [place] [facility] [address] [id number] [place] [address]- 3556 20 Mar, 2012 [facility] [place] [facility] [address] [id number] [place] [address]- 9256 Mar, [facility] [place] [facility] [address] [id number] [place] [address]- 6140 19 Mar, 2012 [facility] [place] [facility] [address] [id number] [place] [address]- 8181 18 Mar, 2012 [facility] [place] [facility] [address] [id number] [place] [address]- 8896 18 Mar, 2012 [facility] [address] [id number] [place] [address]- 2791 Mar, [facility] [place] [facility] [address] [id number] [place] [address]- 3566 Mar, [facility] [place] [facility] [address] [id number] [place] [address]- 9136 05 Mar, 2012 [facility] [place] [facility] [address] [id number] [place] [address]- 5015 05 Mar, 2012 [facility] [place] [facility] [address] [id number] [place] [address]- 5435 Feb, [facility] [place] [facility] [address] [id number] [place] [address]- 0345 Feb, [facility] [place] [facility] [address] [id number] [place] [address]- 5082 Feb, [facility] [place] [facility] [address] [id number] [place] [address]- 6953 Feb, [facility] [place] [facility] [address] [id number] [place] [address]- 2945 Feb, [facility] [place] [facility] [address] [id number] [place] [address]- 5271 16 Feb, 2012 [facility] [place] [facility] [address] [id number] [place] [address]- 6896 16 Feb, 2012 [facility] [place] [facility] [address] [id number] [place] [address] 2546 Feb, [facility] [place] [facility] [address] [id number] [place] [address]- 2116 Feb, [facility] [place] [facility] [address] [id number] [place] [address]- 8361 Feb, [facility] [place] [facility] [address] [id number] [place] [address]- 0008 Feb, [facility] [place] [facility] [address] [id number] [place]17 Jan, [facility] [place] [facility] [address] [id number] [place] [address]- 1382 Jan, [facility] [place] [facility] [address] [id number] [place] [address]- 9040 Jan, [facility] [place] [facility] [address] [id number] [place] [address]- 9279 Jan, [facility] [place] [facility] [address] [facility] [id number] [place] [address]- 9113 Jan, [facility] [place] [facility] [address] [id number] [place] [address]- 2652 Jan, [facility] [place] [facility] [address] [id number] [place] [address]- 7676 09 Jan, 2012 [facility] [place] [facility] [address] [id number] [place] [address]- 9506 24 Dec, 2011 [facility] [place] [facility] [address] [id number] [place] [address] 2546 17 Sep2011 [facility] [place] [facility] [address] [id number] [place] [address]- 9940 Dec, [facility] [place] [facility] [address] [id number] [place] [address]- 5176 Dec, [facility] [place] [facility] [address] [id number] [place] [address]- 2321 Nov, [facility] [place] [facility] [address] [id number] [place] [address]- 6572 Nov, [facility] [place] [facility] [address] [id number] [place] [address]- 9866 Nov, [facility] [place] [facility] [address] [id number] [place] [address]- 3568 Nov, [facility] [place] [facility] [address] [id number] [place] [address]- 0636 Nov, [facility] [place] [facility] [address] [id number] [place] [address]- 8944 Nov, [facility] [place] [facility] [address] [id number] [place] [address]- 8626 Nov, [facility] [place] [facility] [address] [id number] [place] [address]- 0408 Nov, [facility] [place] [facility] [address] [id number] [place] [address]- 0255 Nov, [facility] [place] [facility] [address] [id number] [place] [address]- 1485 Nov, [facility] [place] [facility] [address] [id number], [place] [address]- 2536 Nov, [facility] [place] [facility] [address] [id number] [place] [address]- 2193 Nov, [facility] [place] [facility] [address] [id number] [place] [address]- 4389 Nov, [facility] [place] [facility] [address] [id number] [place] [address]- 5682 Oct, [facility] [place] [facility] [address] [id number] [place] [address]- 8003 Oct, 2011 [facility] [place] [facility] [address] [id number] [place] [address]- 6426 Oct, 2011 [facility] [place] [facility] [address] [id number] [place] [address]- 8686 Oct, 2011 [facility] [place] [facility] [address] [id number] [place] [address]- 6591 Oct, 2011 [facility] [place] [facility] [address] [id number] [place] [address] 2545 Oct, [facility] [place] [facility] [address] [id number] [place] [address]- 7781 Oct, [facility] [place] [facility] [address] [id number] [place] [address]- 0352 Oct, [facility] [place] [facility] [address] [id number] [place] [address]- 2193 Oct, [facility] [place] [facility] [address] [id number] [place] [address]- 7067 Sep, [facility] [place] [facility] [address] [id number] [place] [address]- 8446 Sep, [facility] [place] [facility] [address] [id number] [place] [address]- 9077 Sep, [facility] [place] [facility] [address] [id number] [place] [address]- 9275 Sep, [facility] [place] [facility] [address] [id number] [place] [address]- 6466 Sep, [facility] [place] [facility] [address] [id number] [place] [address]- 7555 Sep, [facility] [place] [facility] [address] [id number] [place] [address]- 2154 Sep, [facility] [place] [facility] [address] [id number] [place] [address]- 4870 Sep, [facility] [address] [id number], [place] [address] 7921 August, [facility] [id number], [place] [address]- 7746 August, [facility] [id number], [place] [address]- 2365 August, [facility] [id number], [place] [address]- 6507 August, [facility] [id number], [place] [address]- 9447 August, [facility] [id number], [place] [address]- 2417 August, [facility] [id number], [place] [address]- 2826 August, [facility] [id number], [place] [address]- 4494 August, [facility] [id number], [place] [address]- 7316 August, [facility] [id number], [place] [address]- 5025 August, [facility] [address] [id number], [place] [address]- 0599 August, [facility] [address] [id number], [place] [address]- 0628 August, [facility] [address] [id number], [place] [address]- 1027 Oct, IMMUNIZATIONS No Known Immunizations SOCIAL HISTORY Never Assessed REASON FOR VISIT Pain (acute)(foot), bilateral-awoods PLAN OF CARE Activity Details Follow Up has appt scheduled to see Dr Cano PCP Reason: VITAL SIGNS Height 63 in 2017-10-06 Weight 401.4 lbs 2017-10-06 Temperature 98.4 degrees Fahrenheit 2017-10-06 Heart Rate 107 bpm 2017-10-06 Respiratory Rate 24 2017-10-06 Oximetry on room air:92 % 2017-10-06 BMI 71.10 kg/m2 2017-10-06 Blood pressure systolic 132 mmHg 2017-10-06 Blood pressure diastolic 80 mmHg 2017-10-06 MEDICATIONS Medication Instructions Dosage Frequency Start Date End Date Duration Status Ondansetron HCl 4 MG Orally 3 times a day 1 tablet as needed 8h Active Atorvastatin Calcium 40 MG Orally Once a day 1 tablet 24h Active Gemfibrozil 600 MG Orally Twice a day 1 tablet 12h Active Lotrisone 1-0.05 % Externally Twice a day 1 application to affected area 12h Active Cyclobenzaprine HCl 10 MG Orally Three times a day 1 tablet as needed 8h Active Mirtazapine 30 MG Orally Once a day 1 tablet at bedtime 24h May, 30 day(s) Active Bactrim DS 800-160 MG Orally twice daily 1 tablet Sep, Sep, 10 day(s) Active Lasix 40 mg Orally Once a day 1 tablet 24h Active Clindamycin Phosphate 1 % Externally Twice a day 1 application to affected area 12h August, Active Guaifenesin 400 MG Orally every 4 hrs 1 tablet as needed 4h May, Active Nexium 40 mg Orally Once a day 1 capsule 24h Jul, 30 day(s) Active Lyrica 150 MG Orally twice a day 2 capsules 12h 30 days Active Benadryl Allergy 25 MG Orally 2 times a day 1 capsule 12h Active Sucralfate 1 GM Orally 4 times a day 1 tablet before meals and at bedtime 6h 30 days Active Triamcinolone Acetonide 0.025 % Externally Twice a day 1 application to affected area as needed 12h 11 Jul, 2017 Active Potassium Chloride Eugenia ER 10 MEQ Orally Once a day 1 tablet with food 24h Active Metformin HCl 1000 MG Orally Twice a day 1 tablet with meals 12h 30 days Active Excedrin Extra Strength 250-250-65 MG Orally Once a day 2 tablets 24h Sep, Sep, 7 days Active Montelukast Sodium 10 MG Orally Once a day 1 tablet in the evening 24h Active Cetirizine HCl 10 mg Orally Once a day 1 tablet 24h 90 Active RESULTS No Results PROCEDURES No Known [...] Surgical History bladder surgery Hospitalization History [facility] for right groin pain 05/2011 Hospitalization History [facility] for wound on buttocks 08/2012 Hospitalization History [facility], hypoxia secondary to pneumonia 12/02-12/09 Hospitalization History Pneumonia, elevated CO2 on Bipap was in ICU 08/2013 Hospitalization History Hypoxia, Exacerbation COPD, Chest pain 09/05/15 Hospitalization History suicidal ideations-[place] 12/28 Hospitalization History hypoxia--[facility] 02/13/2016 Hospitalization History shortness of breath at june 2016 Hospitalization History Shortness of breath at august 2016 Hospitalization History SOB, chest pain at 12/2016
--- OUTSIDE RECORDS SUMMARY | 2018-02-11 13:29 | XMS REPORT ---
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 [id number] [place] [address] 49398- 7565 Jun, Unspecified mood [affective] disorder F39 [facility] [id number] [place] [address] 13490- 6677 Jun, [facility] [id number] [place] [address] 72028- 0578 Jun, Unspecified mood [affective] disorder F39 [facility] [address], [place] [address]- 9572 Jun, Unspecified mood [affective] disorder F39 [facility] [address], [place] [address]- 9373 Jun, Unspecified mood [affective] disorder F39 [facility] [id number] [place] [address] 36465- 5666 Jun, Unspecified mood [affective] disorder F39 [facility] [id number] [place] [address] 43111- 8114 Jun, [facility] [id number] [place] [address] 76781- 7809 Jun, Type 2 diabetes mellitus with hyperglycemia E11.65 ; Oxygen dependent Z99.81 ; Folliculitis L73.9 ; Dysuria R30.0 ; Encounter for contraceptive management Z30.9 and Dog bite W54.0XXA [facility] [id number] [place] [address] 66428- 6540 Jun, Unspecified mood [affective] disorder F39 [facility] [id number] [place] [address] 65208- 4108 Jun, Type 2 diabetes mellitus with hyperglycemia E11.65 [facility] [id number] [place] [address] 52830- 8528 May, Unspecified mood [affective] disorder F39 [facility] [address], [place] [address]- 4335 May, [facility] [id number] [place] [address] 09959- 0047 May, [facility] [address], [place] [address]- 4460 May, [facility] [id number] [place] [address] 42512- 5377 Apr, [facility] [address], [place] [address]- 3943 Apr, Unspecified mood [affective] disorder F39 [facility] [id number] [place] [address] 88646- 8395 Apr, [facility] [id number] [place] [address] 50141- 5697 Apr, [facility] [id number] [place] [address] 92591- 9202 Apr, [facility] [id number] [place] [address] 06911- 7071 Apr, Dysuria R30.0 and Well woman exam (no gynecological exam) Z00.00 [place] [id number] [place] [address] 26632- 3891 Mar, [facility] [id number] [place] [address] 36703- 9640 Mar, [facility] [id number] [place] [address] [id number] Mar, Dental examination Z01.20 [place] [id number] [place] [address] 94805- 3632 Mar, Chronic diarrhea K52.9 ; Intractable vomiting with nausea, vomiting of unspecified type R11.2 ; Cellulitis, unspecified cellulitis site L03.90 ; Type 2 diabetes mellitus with diabetic polyneuropathy E11.42 and Postinflammatory hyperpigmentation L81.0 [facility] [id number] [place] [address] 21486- 8321 Mar, Unspecified mood [affective] disorder F39 [facility] [id number] [place] [address] 81742- 8966 Mar, Unspecified mood [affective] disorder F39 [facility] [id number] [place] [address] 17622- 9543 Mar, [facility] [id number] [address]- 7557 Mar, [facility] [address] [id number], [place] [address]- 0023 Mar, [facility] [address] [id number], [place] [address]- 5563 Mar, [facility] [id number] [place] [address] 92346- 2932 Mar, [facility] [address] [facility] [place] [id number], [place] [address]- 0379 Mar, [facility] [id number] [place] [address] 59196- 0545 Feb, Unspecified mood [affective] disorder F39 [facility] [id number] [place] [address] 78075- 8672 Feb, [facility] [address] [id number], [place] [address]- 4303 Feb, [facility] [address], [place] [address]- 6826 Jan, Unspecified mood [affective] disorder F39 [facility] [place] [id number] [facility] [id number] [id number] Jan, Encounter for dental examination Z01.20 [facility] [address], [place] [address]- 1702 Jan, [facility] [address] [id number], [place] [address]- 6291 Jan, [facility] [address], [place] [address]- 0841 Jan, [facility] [address] [id number], [place] [address]- 8655 Jan, [facility] [address], [place] [address]- 5975 Jan, [facility] [id number] [place] [address] 11261- 3645 08 Jan, 2015 Abdominal abscess K65.1 and Dental caries K02.9 [facility] [id number] [place] [address] 92423- 5038 Jan, [facility] [id number] [place] [address] 64423- 9376 30 Dec, 2014 Diabetes with neurological manifestations, type II or unspecified type, not stated as uncontrolled 250.60 ; Essential hypertension, benign 401.1 ; Concussion 850.9 and Skin texture changes 782.8 [facility] [address] 96577- 2491 Dec, [facility] [id number] [place] [address] 00557- 6554 24 Dec, 2014 [facility] [address] 24042- 8527 Dec, [facility] [id number] [place] [address] 19009- 6339 Dec, [facility] [id number] [place] [address] 30694- 1517 17 Dec, 2014 Affective disorder 296.90 [facility] [id number] [place] [address] 00714- 8389 14 Dec, 2014 [facility] [id number] [place] [address] 69289- 2549 10 Dec, 2014 Affective disorder 296.90 [facility] [id number] [place] [address] 84798- 9116 Dec, [facility] [id number] [place] [address] 86357- 9570 Dec, [facility] [id number] [place] [address] 89552- 1622 Dec, [facility] [address] [place] [address]- 6898 Dec, [facility] [id number] [place] [address] 52933- 7566 Nov, Affective disorder 296.90 [facility] [id number] [place] [address] 94503 2542 Nov, [facility] [id number] [place] [address] 17326- 4885 Nov, Affective disorder 296.90 [facility] [id number] [place] [address] 03337 2546 Nov, Diarrhea 787.91 [facility] [id number] [place] [address] 77300- 3006 Nov, [facility] [id number] [place] [address] 07533- 1817 Nov, Diarrhea 787.91 [facility] [id number] [place] [address] 13240 2544 Nov, Diarrhea 787.91 and Hyperlipidemia 272.4 [facility] [id number] [place] [address] 07634- 5367 Nov, Diarrhea 787.91 [facility] [id number] [place] [address] 08988 2549 Nov, Affective disorder 296.90 [facility] [id number] [place] [address] 50280 2548 Nov, Affective disorder 296.90 [facility] [address], [place] [address]- 0080 Nov, Affective disorder 296.90 [facility] [id number] [place] [address] 93804- 8319 Nov, [facility] [id number] [place] [address] 31563- 0377 Nov, [facility] [id number] [place] [address] 51301- 9531 Nov, [facility] [address], [place] [address]- 9991 Nov, Episodic mood disorder 296.90 [facility] [address] [address]- 5456 Nov, [facility] [id number] [place] [address] 39304- 2994 Nov, [facility] [id number] [place] [address] 75372- 6219 Nov, [facility] [id number] [place] [address] 35642- 3303 Nov, [facility] [address], [place] [address]- 3472 Nov, [facility] [id number] [place] [address] 88200- 1612 Nov, Lymphedema 457.1 ; Hyperlipidemia 272.4 ; Essential hypertension, benign 401.1 and Numbness of toes 782.0 [facility] [address], [place] [address]- 2614 Nov, Episodic mood disorder 296.90 [facility] [address], [place] [address]- 7992 Oct, [facility] [address], [place] [address]- 1362 Oct, [facility] [address], [place] [address]- 5400 Oct, [facility] [address], [place] [address]- 8072 Oct, [facility] [address], [place] [address]- 1801 Oct, [facility] [address], [place] [address]- 9795 Oct, [facility] [address] [facility] [id number] [place] [address]- 7452 Oct, 2014 [facility] [address] [facility] [id number] [place] [address]- 9178 Oct, 2014 [facility] [address] [facility] [id number] [place] [address]- 9968 Oct, Episodic mood disorder 296.90 [facility] [address] [facility] [place] [place] [id number] [place] [address]- 3399 30 Sep, 2014 [facility] [address] [facility] [place] [id number] [place] [address]- 6048 29 Sep, 2014 [facility] [address] [facility] [place] [id number] [place] [address]- 1652 Sep, [facility] [address] [facility] [place] [id number] [place] [address]- 1765 Sep, [facility] [address] [facility] [place] [id number] [place] [address]- 2851 Sep, [facility] [address] [facility] [place] [id number] [address]- 7489 Sep, Episodic mood disorder 296.90 [facility] [address] [facility] [place] [id number] [place] [address] Sep, Unspecified episodic mood disorder 296.90 [facility] [address] [facility] [place] [id number] [address] 18 Sep, 2014 [facility] [address] [facility] [place] [id number] [address] 18 Sep, 2014 [facility] [address] [facility] [place] [id number] [place] [address] 16 Sep, 2014 Episodic mood disorder 296.90 [facility] [address] [facility] [place] [id number], [place] [address] 15 Sep, 2014 [facility] [address] [id number] [address] Sep, [facility] [id number] [address] Sep, [facility] [id number] [place] [address] Sep, Hematemesis 578.0 and Vomiting 787.03 [facility] [id number] [place] [address]- [address]77 Sep, Episodic mood disorder 296.90 [facility] [id number] [address] Sep, [facility] [id number] [place] [address]- [address] Sep, [facility] [id number] [address] Sep, Diabetes mellitus without mention of complication, type II or unspecified type, not stated as uncontrolled 250.00 and Other chronic pain 338.29 [facility] [id number], [place] [address] Sep, Episodic mood disorder 296.90 [facility] [id number] [place] [address]- [address] Sep, [facility] [id number], [place] [address] Sep, Episodic mood disorder 296.90 [facility] [id number], [place] [address] Sep, [facility] [id number], [place] [address] August, [facility] [id number], [place] [address] August, [facility] [address] [id number], [place] [address] August, Episodic mood disorder 296.90 [facility] [id number] [address] August, [facility] [address] [facility] [place] [id number] [address] August, Unspecified episodic mood disorder 296.90 [facility] [address] [facility] [id number] [place] [address] August, Vomiting 787.03 [facility] [address] [facility] [id number] [place] [address] August, [facility] [address] [facility] [id number] [place] [address] August, [facility] [address] [facility] [id number] [place] [address] August, [facility] [address] [id number] [address] August, [facility] [address] [id number] [address] August, [facility] [address] [id number] [place] [address] 8087 Jul, [facility] [address] [id number] [address] Jul, [facility] [address] [id number] [address] 9[address] Jul, [facility] [address] [id number] [address] Jun, [facility] [address] [facility] [id number] [place] [address] 8[address] Jun, [facility] [address] [facility] [id number], [place] [address] Jun, [facility] [place] [facility] [address] [facility] [id number], [place] [address] 47[address] Jun, [facility] [address] [id number] [address] 1144 30 Jun, 2014 [facility] [place] [facility] [address] [id number] [place] [address]- 5384 Jun, [facility] [place] [facility] [address] [id number] [place] [address]- 9842 Jun, [facility] [place] [facility] [address] [id number] [place] [address]- 1092 Jun, [facility] [place] [facility] [address] [id number] [place] [address]- 7154 Jun, [facility] [place] [facility] [address] [id number] [place] [address]- 7550 Jun, [facility] [place] [facility] [address] [id number] [place] [address]- 7945 Jun, [facility] [place] [facility] [address] [id number] [place] [address]- 7328 Jun, [facility] [place] [facility] [address] [id number] [place] [address]- 7926 Jun, [facility] [place] [facility] [address] [id number] [place] [address]- 5551 Jun, [facility] [place] [facility] [address] [id number] [place] [address]- 9378 Jun, [facility] [place] [facility] [address] [id number] [place] [address]- 5292 Jun, [facility] [place] [facility] [address] [id number] [place] [address]- 1255 Jun, [facility] [place] [facility] [address] [id number] [place] [address]- 8753 Jun, [facility] [place] [facility] [address] [id number] [place] [address]- 2438 Jun, [facility] [place] [facility] [address] [id number] [place] [address]- 5635 Jun, [facility] [place] [facility] [address] [id number] [place] [address]- 5383 21 Jun, 2014 [facility] [place] [facility] [address] [id number] [place] [address]- 0916 20 Jun, 2014 [facility] [place] [facility] [address] [id number] [place] [address]- 3426 20 Jun, 2014 [facility] [place] [facility] [address] [id number] [place] [address]- 8406 20 Jun, 2014 [facility] [place] [facility] [address] [id number] [place] [address]- 6488 20 Jun, 2014 [facility] [place] [facility] [address] [id number] [place] [address]- 4529 19 Jun, 2014 [facility] [place] [facility] [address] [id number] [place] [address]- 3118 19 Jun, 2014 [facility] [place] [facility] [address] [id number] [place] [address]- 6877 18 Jun, 2014 [facility] [place] [facility] [address] [id number] [place] [address]- 8029 18 Jun, 2014 [facility] [place] [facility] [address] [id number] [place] [address]- 7660 17 Jun, 2014 [facility] [place] [facility] [address] [id number] [place] [address]- 0947 17 Jun, 2014 [facility] [place] [facility] [address] [id number] [place] [address]- 9279 16 Jun, 2014 [facility] [place] [facility] [address] [id number] [place] [address]- 3070 16 Jun, 2014 [facility] [place] [facility] [address] [id number] [place] [address]- 2056 16 Jun, 2014 [facility] [place] [facility] [address] [id number] [place] [address]- 3646 16 Jun, 2014 [facility] [place] [facility] [address] [id number] [place] [address]- 8867 Jun, [facility] [place] [facility] [address] [id number] [place] [address]- 5402 16 Jun, 2014 [facility] [place] [facility] [address] [id number] [place] [address]- 7587 Jun, [facility] [place] [facility] [address] [id number] [place] [address]- 6523 Jun, [facility] [place] [facility] [address] [id number] [place] [address]- 6568 Jun, [facility] [place] [facility] [address] [id number] [place] [address]- 8470 Jun, [facility] [place] [facility] [address] [id number] [place] [address]- 0484 Jun, [facility] [place] [facility] [address] [id number] [place] [address]- 5102 Jun, 2014 [facility] [place] [facility] [address] [id number] [place] [address]- 9102 Jun, [facility] [place] [facility] [address] [id number] [place] [address]- 9738 Jun, [facility] [place] [facility] [address] [id number] [place] [address]- 0182 Jun, [facility] [place] [facility] [address] [id number], [place] [address]- 2975 Jun, [facility] [place] [facility] [address] [id number], [place] [address]- 5239 Jun, 2014 [facility] [place] [facility] [address] [id number] [place] [address]- 9434 Jun, [facility] [place] [facility] [address] [id number] [place] [address]- 2090 Jun, [facility] [place] [facility] [address] [id number] [place] [address]- 9947 Jun, [facility] [place] [facility] [address] [id number] [place] [address]- 9387 Jun, [facility] [place] [facility] [address] [id number] [place] [address]- 8965 Jun, [facility] [place] [facility] [address] [facility] [id number] [place] [address]- 6805 Jun, [facility] [place] [facility] [address] [facility] [id number] [place] [address]- 0710 Jun, [facility] [place] [facility] [address] [id number] [place] [address]- 1579 Jun, [facility] [place] [facility] [address] [id number] [place] [address]- 5588 Jun, [facility] [place] [facility] [address] [facility] [id number] [place] [address]- 2376 May, [facility] [place] [facility] [address] [facility] [id number] [place] [address]- 0902 May, 2014 [facility] [place] [facility] [address] [facility] [id number] [place] [address]- 3072 May, [facility] [place] [facility] [address] [id number] [address]- 2108 May, [facility] [place] [facility] [address] [facility] [id number] [place] [address]- 4947 May, [facility] [place] [facility] [address] [facility] [id number] [place] [address]- 3521 May, 2014 [facility] [place] [facility] [address] [facility] [place] [id number] [place] [address]- 2544 May, [facility] [place] [facility] [address] [facility] [id number] [place] [address]- 1894 May, 2014 [facility] [place] [facility] [address] [facility] [id number], [place] [address]- 9306 May, 2014 [facility] [place] [facility] [address] [facility] [id number], [place] [address]- 5332 May, 2014 [facility] [place] [facility] [address] [facility] [id number] [place] [address]- 0431 18 May, 2014 [facility] [place] [facility] [address] [facility] [id number] [place] [address]- 1516 18 May, 2014 [facility] [place] [facility] [address] [facility] [id number] [place] [address]- 5236 13 May, 2014 [facility] [place] [facility] [address] [facility] [id number] [place] [address]- 2549 13 May, 2014 [facility] [place] [facility] [address] [facility] [id number] [place] [address]- 0224 11 May, 2014 [facility] [place] [facility] [address] [id number] [place] [address]- 8027 May, 2014 [facility] [place] [facility] [address] [id number] [place] [address]- 6126 May, 2014 [facility] [place] [facility] [address] [facility] [id number] [place] [address]- 6716 May, 2014 [facility] [place] [facility] [address] [facility] [id number] [place] [address]- 9611 May, 2014 [facility] [place] [facility] [address] [facility] [id number] [place] [address]- 6689 May, 2014 [facility] [place] [facility] [address] [id number] [place] [address]- 2546 May, 2014 [facility] [place] [facility] [address] [facility] [id number], [place] [address]- 2548 May, 2014 [facility] [place] [facility] [address] [facility] [id number] [place] [address]- 5446 May, 2014 [facility] [place] [facility] [address] [facility] [id number], [place] [address]- 8761 05 May, 2014 [facility] [place] [facility] [id number] [place] [address]- 0331 May, [facility] [place] [facility] [address] [id number] [place] [address]- 9885 May, [facility] [place] [facility] [address] [id number] [place] [address]- 2995 May, [facility] [place] [facility] [address] [id number] [place] [address]- 0692 Apr, [facility] [place] [facility] [address] [id number] [place] [address]- 8779 Apr, [facility] [place] [facility] [address] [id number] [place] [address]- 8540 Apr, [facility] [place] [facility] [address] [id number] [place] [address]- 0927 Apr, [facility] [place] [facility] [address] [id number] [place] [address]- 5908 Apr, [facility] [place] [facility] [address] [id number] [place] [address]- 6098 Apr, [facility] [place] [facility] [address] [id number] [place] [address]- 0979 Apr, [facility] [place] [facility] [address] [id number] [place] [address]- 2974 Apr, [facility] [place] [facility] [address] [id number], [place] [address]- 0100 Apr, [facility] [place] [facility] [address] [id number], [place] [address]- 9572 Apr, [facility] [place] [facility] [address] [id number] [place] [address]- 8311 Apr, [facility] [place] [facility] [address] [id number], [place] [address]- 6441 Apr, [facility] [place] [facility] [address] [id number] [place] [address]- 0334 Apr, [facility] [place] [facility] [address] [id number] [place] [address]- 3941 Apr, [facility] [address] [id number] [place] [address]- 0076 Apr, [facility] [place] [facility] [address] [id number] [place] [address]- 2029 Apr, [facility] [place] [facility] [address] [id number] [place] [address]- 8074 Apr, [facility] [place] [facility] [address] [id number] [place] [address]- 8918 Apr, [facility] [place] [facility] [address] [id number] [place] [address]- 5517 Apr, [facility] [place] [facility] [address] [id number] [place] [address]- 5008 Apr, [facility] [address] [id number] [place] [address]- 0249 Mar, [facility] [place] [facility] [address] [id number] [place] [address]- 8176 Mar, [facility] [place] [facility] [address] [id number] [place] [address]- 3915 Mar, [facility] [place] [facility] [address] [id number] [place] [address]- 3939 Mar, [facility] [place] [facility] [address] [id number] [place] [address]- 1827 Mar, [facility] [place] [facility] [address] [id number] [place] [address]- 7843 Mar, [facility] [place] [facility] [address] [id number] [place] [address]- 5012 Mar, [facility] [place] [facility] [address] [id number] [place] [address]- 0125 18 Mar, 2014 [facility] [place] [facility] [address] [id number] [place] 6567 15 Mar, 2014 [facility] [place] [facility] [address] [id number] [place] [address]- 1353 15 Mar, 2014 [facility] [place] [facility] [address] [id number] [place] [address]- 7637 Mar, [facility] [place] [facility] [address] [id number] [place] [address]- 2207 Mar, [facility] [place] [facility] [address] [id number] [place] [address]- 1656 Mar, [facility] [place] [facility] [address] [id number] [place] [address]- 7109 Mar, [facility] [place] [facility] [address] [id number] [place] [address]- 1527 Mar, [facility] [place] [facility] [address] [id number] [place] [address]- 3440 Mar, [facility] [place] [facility] [address] [id number] [place] [address]- 4049 Feb, [facility] [place] [facility] [address] [id number] [place] [address]- 4143 Feb, [facility] [place] [facility] [address] [id number] [place] [address]- 0735 Feb, [facility] [place] [facility] [address] [id number] [place] [address]- 6448 Feb, [facility] [place] [facility] [address] [id number] [place] [address]- 2897 Feb, [facility] [place] [facility] [address] [id number] [place] [address]- 5119 Feb, [facility] [place] [facility] [address] [id number] [place] [address]- 8192 Feb, [facility] [place] [facility] [address] [id number] [place] [address]- 3505 18 Feb, 2014 [facility] [place] [facility] [address] [id number], [place] [address]- 4550 18 Feb, 2014 [facility] [place] [facility] [address] [id number] [place] [address]- 3695 17 Feb, 2014 [facility] [place] [facility] [address] [id number] [place] [address]- 0619 17 Feb, 2014 [facility] [place] [facility] [address] [id number] [place] [address]- 7020 17 Feb, 2014 [facility] [place] [facility] [address] [id number] [place] [address]- 7139 17 Feb, 2014 [facility] [place] [facility] [address] [id number] [place] [address]- 0299 Feb, [facility] [place] [facility] [address] [id number] [place] [address]- 9531 Feb, [facility] [place] [facility] [address] [id number] [place] [address]- 3136 Feb, [facility] [place] [facility] [address] [id number] [place] [address]- 8983 Feb, [facility] [place] [facility] [address] [id number] [place] [address]- 4474 Feb, [facility] [place] [facility] [address] [id number] [place] [address]- 5915 Feb, [facility] [place] [facility] [address] [id number], [place] [address]- 7589 Feb, [facility] [place] [facility] [address] [id number], [place] [address]- 0841 Feb, [facility] [place] [facility] [address] [id number] [place] [address]- 0350 Jan, [facility] [place] [facility] [address] [id number] [place] [address]- 3204 Jan, [facility] [place] [facility] [address] [id number] [place] [address]- 9294 Jan, [facility] [place] [facility] [address] [id number] [place] [address]- 6904 30 Jan, 2013 [facility] [place] [facility] [address] [id number] [place] [address]- 3734 24 Jan, 2014 [facility] [place] [facility] [address] [id number] [place] [address]- 9275 24 Jan, 2014 [facility] [place] [facility] [address] [id number] [place] [address]- 9727 Jan, [facility] [place] [facility] [address] [id number] [place] [address]- 0665 21 Jan, 2014 [facility] [place] [facility] [address] [id number] [place] [address]- 8751 20 Jan, 2014 [facility] [place] [facility] [address] [id number] [place] [address]- 4684 20 Jan, 2014 [facility] [place] [facility] [address] [id number] [place] [address]- 0176 17 Jan, 2014 [facility] [place] [facility] [address] [id number] [place] [address]- 4613 17 Jan, 2014 [facility] [place] [facility] [address] [id number] [place] [address]- 3157 17 Jan, 2014 [facility] [place] [facility] [address] [id number] [place] [address]- 4943 17 Jan, 2014 [facility] [place] [facility] [address] [id number] [place] [address]- 2902 15 Jan, 2014 [facility] [place] [facility] [address] [id number] [place] [address]- 6539 15 Jan, 2014 [facility] [place] [facility] [address] [id number] [place] [address]- 9730 14 Jan, 2014 [facility] [place] [facility] [address] [id number] [place] [address]- 0583 14 Jan, 2013 [facility] [place] [facility] [address] [id number] [place] [address]- 8785 Jan, [facility] [place] [facility] [address] [id number] [place] [address]- 8019 Jan, [facility] [place] [facility] [address] [id number] [place] [address]- 9144 Jan, [facility] [place] [facility] [address] [id number] [place] [address]- 3900 Jan, [facility] [place] [facility] [address] [id number] [place] [address]- 6364 Jan, [facility] [place] [facility] [address] [id number] [place] [address]- 7790 Jan, [facility] [place] [facility] [address] [id number] [place] [address]- 0046 Jan, [facility] [place] [facility] [address] [id number] [place] [address]- 0420 25 Dec, 2013 [facility] [place] [facility] [address] [id number], [place] [address]- 6787 25 Dec, 2013 [facility] [place] [facility] [address] [id number] [place] [address]- 1932 23 Dec, 2013 [facility] [place] [facility] [address] [id number], [place] [address]- 2230 23 Dec, 2013 [facility] [place] [facility] [address] [id number], [place] [address]- 9435 19 Dec, 2013 [facility] [place] [facility] [address] [id number], [place] [address]- 2910 19 Dec, 2013 [facility] [place] [facility] [address] [id number] [place] [address]- 9904 17 Dec, 2013 [facility] [place] [facility] [address] [id number] [place] [address]- 4369 17 Dec, 2013 [facility] [place] [facility] [address] [id number], [place] [address]- 2124 09 Dec, 2013 [facility] [place] [facility] [address] [id number], [place] [address]- 8604 09 Dec, 2013 [facility] [place] [facility] [address] [id number] [place] [address] 08 Dec, 2013 [facility] [place] [facility] [address] [id number] [place] [address] Dec, 2013 [facility] [place] [facility] [address] [id number] [place] [address] Dec, 2013 [facility] [place] [facility] [address] [id number] [place] [address] Dec, 2013 [facility] [place] [facility] [address] [id number] [place] [address] Dec, 2013 [facility] [place] [facility] [address] [id number] [place] [address] 3570 Dec, 2013 [facility] [place] [facility] [address] [id number] [place] [address] Dec, 2013 [facility] [place] [facility] [address] [id number] [place] [address] Dec, 2013 [facility] [place] [facility] [address] [id number] [place] [address] 90[address] Nov, [facility] [place] [facility] [address] [id number] [place] [address] Nov, [facility] [place] [facility] [address] [id number] [place] [address] Nov, [facility] [place] [facility] [address] [id number] [place] [address] 269[address] Nov, [facility] [place] [facility] [address] [id number] [place] [address] 7725 Nov, [facility] [place] [facility] [address] [id number] [place] [address] 1507 Nov, [facility] [place] [facility] [address] [id number] [place] [address] 78[address] Nov, [facility] [place] [facility] [address] [id number] [place] [address]- 9069 Nov, [facility] [place] [facility] [address] [id number] [place] [address]- [address]90 Nov, [facility] [place] [facility] [address] [id number] [place] [address]- 1016 Nov, [facility] [place] [facility] [address] [id number] [place] [address] 4[address] Nov, [facility] [place] [facility] [address] [id number] [place] [address]- [address] Nov, [facility] [place] [facility] [address] [id number] [place] [address] 8430 Oct, [facility] [place] [facility] [address] [id number] [place] [address] 5703 Oct, [facility] [place] [facility] [address] [id number] [place] [address]- 9326 Oct, [facility] [place] [facility] [address] [id number] [place] [address] 65[address] Oct, [facility] [place] [facility] [address] [id number] [place] [address]- 0213 Oct, [facility] [place] [facility] [address] [id number] [place] [address] 9986 Oct, [facility] [place] [facility] [address] [id number] [place] [address]- 1071 Oct, [facility] [place] [facility] [address] [id number] [place] [address] 2994 Oct, [facility] [place] [facility] [address] [id number] [place] [address]- 8283 Oct, [facility] [place] [facility] [address] [id number] [place] [address]- 378[address] Oct, [facility] [place] [facility] [address] [id number] [place] [address]- 8624 16 Oct, 2013 [facility] [place] [facility] [address] [id number] [place] [address]- 2589 16 Oct, 2013 [facility] [place] [facility] [address] [id number] [place] [address] 4484 14 Oct, 2013 [facility] [place] [facility] [address] [id number] [place] [address]- 3344 14 Oct, 2013 [facility] [place] [facility] [address] [id number] [place] [address] 4549 13 Oct, 2013 [facility] [place] [facility] [address] [id number] [place] [address] 7[address] 13 Oct, 2013 [facility] [place] [facility] [address] [id number] [place] [address] 5278 Oct, [facility] [place] [facility] [address] [id number] [place] [address]- 2596 27 Sep, 2013 [facility] [place] [facility] [address] [id number] [place] [address]- 7545 27 Sep, 2013 [facility] [place] [facility] [address] [id number] [place] [address]- 0475 20 Sep, 2013 [facility] [place] [facility] [address] [id number] [place] [address] 6960 20 Sep, 2013 [facility] [place] [facility] [address] [id number] [place] [address]- 1111 18 Sep, 2013 [facility] [place] [facility] [address] [id number] [place] [address]- 3477 18 Sep, 2013 [facility] [place] [facility] [address] [id number] [place] [address]- 2369 17 Sep, 2013 [facility] [place] [facility] [address] [id number] [place] [address]- 0545 17 Sep, 2013 [facility] [place] [facility] [address] [id number] [place] [address]- 7693 11 Sep, 2013 [facility] [place] [facility] [address] [id number] [place] [address]- 3404 11 Sep, 2013 [facility] [place] [facility] [address] [id number] [place] [address]- 2849 Sep, [facility] [place] [facility] [address] [id number] [place] [address]- 7945 Sep, [facility] [place] [facility] [address] [id number] [place] [address]- 0392 Sep, [facility] [place] [facility] [address] [id number] [place] [address]- 6238 Sep, [facility] [place] [facility] [address] [id number] [place] [address]- 7298 Sep, [facility] [place] [facility] [address] [id number] [place] [address]- 7392 Sep, [facility] [place] [facility] [address] [id number] [place] [address]- 7225 Sep, [facility] [place] [facility] [address] [id number] [place] [address]- 3557 Sep, [facility] [place] [facility] [address] [id number] [place] [address]- 3281 Sep, [facility] [place] [facility] [address] [id number] [place] [address]- 7276 Sep, [facility] [place] [facility] [address] [id number] [place] [address]- 1249 Sep, [facility] [place] [facility] [address] [id number] [place] [address]- 2551 Sep, [facility] [place] [facility] [address] [id number] [place] [address] 3522 August, [facility] [place] [facility] [address] [id number] [place] [address]- 5544 August, [facility] [place] [facility] [address] [id number] [place] [address] 8149 August, [facility] [place] [facility] [address] [id number] [place] [address]- 6824 August, [facility] [place] [facility] [address] [id number] [place] [address]- [address]154 August, [facility] [place] [facility] [address] [id number] [place] [address]- 7839 August, [facility] [place] [facility] [address] [id number] [place] [address]- 8486 August, [facility] [place] [facility] [address] [id number] [place] [address]- 1782 August, [facility] [place] [facility] [address] [id number] [place] [address]- 6584 August, [facility] [place] [facility] [address] [id number] [place] [address]- 1896 August, [facility] [place] [facility] [address] [id number] [place] [address]- 0580 August, [facility] [place] [facility] [address] [id number] [place] [address]- 4[address] Jul, [facility] [place] [facility] [address] [id number] [place] [address]- 3814 Jul, [facility] [facility] [address] [id number] [place] [address] Jul, [facility] [address] [id number] [place] [address] Jul, [facility] [place] [facility] [address] [id number] [place] [address] Jul, [facility] [place] [facility] [address] [id number] [place] [address] 35[address] Jul, [facility] [facility] [address] [id number] [place] [address] 4[address] Jul, [facility] [place] [facility] [address] [id number] [place] [address]334 Jul, [facility] [place] [facility] [address] [id number] [place] [address]- 0196 Jul, [facility] [place] [facility] [address] [id number] [place] [address]- 0365 18 Jul, 2013 [facility] [place] [facility] [address] [id number] [place] [address]- 1759 16 Jul, 2013 [facility] [place] [facility] [address] [id number] [place] [address]- 4760 Jul, [facility] [place] [facility] [address] [id number] [place] [address] 6980 Jul, [facility] [place] [facility] [address] [id number] [place] [address]- 65[address] Jul, [facility] [place] [facility] [address] [id number] [place] [address] 1971 Jul, [facility] [place] [facility] [address] [id number] [place] [address] 6443 Jul, [facility] [place] [facility] [address] [id number] [place] [address]- 4092 Jul, [facility] [place] [facility] [address] [id number] [place] [address] 1123 Jul, [facility] [place] [facility] [address] [id number] [place] [address]- 2122 Jul, [facility] [place] [address] [id number] [place] [address]- 9173 Jul, [facility] [place] [facility] [address] [id number] [place] [address]- 7395 Jul, [facility] [place] [facility] [address] [id number] [place] [address]- 0897 Jul, [facility] [place] [address] [id number] [place] [address]- 5078 Jul, [facility] [facility] [address] [id number] [place] [address]- 8[address] Jun, [facility] [address] [id number] [place] [address]- 6545 Jun, [facility] [address] [id number] [place] [address]- 9023 Jun, [facility] [address] [id number] [place] [address]- 0193 Jun, [facility] [address] [id number] [place] [address]- 7300 Jun, [facility] [address] [id number] [place] [address]- 3622 Jun, [facility] [address] [id number] [place] [address]- 9206 Jun, [facility] [address] [id number] [place] [address]- 8060 Jun, [facility] [address] [id number] [place] [address]- 0728 Jun, [facility] [address] [id number] [place] [address]- 9581 Jun, [facility] [address] [id number] [place] [address]- 2457 Jun, [facility] [address] [id number] [place] [address]- 5731 Jun, [facility] [address] [id number] [place] [address]- 7366 May, [facility] [address] [id number] [place] [address]- 3497 May, [facility] [address] [id number] [place] [address]- 9434 Apr, [facility] [address] [id number] [place] [address]- 4071 Apr, [facility] [address] [id number] [place] [address]- 0930 Apr, [facility] [address] [id number] [place] [address]- 4360 Apr, [facility] [address] [id number] [place] [address]- 4250 Apr, [facility] [address] [id number] [place] [address]- 9178 Apr, [facility] [address] [id number] [place] [address]- 1861 Apr, [facility] [address] [id number] [place] [address]- 9703 Apr, [facility] [address] [id number] [place] [address]- 9559 Apr, [facility] [address] [id number] [place] [address]- 5984 Apr, [facility] [address] [id number] [place] [address]- 8470 Apr, [facility] [address] [id number] [place] [address]- 5876 Mar, [facility] [address] [id number] [place] [address]- 3514 16 Mar, 2013 [facility] [address] [id number] [place] [address]- 9171 Mar, [facility] [address] [id number] [place] [address]- 7661 Mar, [facility] [address] [id number] [place] [address]- 2911 Feb, [facility] [address] [id number] [place] Feb, [facility] [address] [id number], [place] [address]- 9515 Feb, [facility] [address] [id number] [place] [address]- 8638 Feb, [facility] [address] [id number], [place] [address]- 8082 Feb, [facility] [address] [id number] [place] [address]- 9879 Feb, [facility] [address] [id number], [place] [address]- 1795 Feb, [facility] [address] [id number] [place] [address]- 3110 Feb, [facility] [address] [id number], [place] [address]- 7920 Feb, [facility] [address] [id number], [place] [address]- 8364 Feb, [facility] [address] [id number], [place] [address]- 4746 Feb, [facility] [address] [id number], [place] [address]- 9563 Jan, [facility] [address] [id number], [place] [address]- 1846 Jan, [facility] [address] [id number], [place] [address]- 1764 Jan, [facility] [address] [id number], [place] [address]- [address] Jan, [facility] [address] [id number], [place] [address]- 0762 Jan, [facility] [address] [id number], [place] [address]- 0452 Jan, [facility] [address] [id number], [place] [address]- 7252 Jan, [facility] [address] [id number] [place] [address]- 6884 02 Jan, 2013 [facility] [address] [id number] [place] [address]- 2136 30 Sep, 2012 [facility] [address] [id number] [place] [address] 2546 25 Sep, 2012 [facility] [address] [id number] [place] [address] 2546 18 Sep, 2012 [facility] [address] [id number] [place] [address] 2540 17 Sep, 2012 [facility] [address] [id number] [place] [address]- 3296 17 Dec, 2012 [facility] [address] [id number] [place] [address]- 0601 16 Dec, 2012 [facility] [address] [id number] [place] [address]- 6233 13 Dec, 2012 [facility] [address] [id number] [place] [address]- 6271 11 Dec, 2012 [facility] [address] [id number] [place] [address]- 6842 05 Dec, 2012 [facility] [address] [id number] [place] [address]- 9060 04 Dec, 2012 [facility] [address] [id number] [place] [address]- 2541 30 Nov, 2012 [facility] [address] [id number] [place] [address] 2547 29 Nov, 2012 [facility] [address] [id number] [place] [address] 2542 22 Nov, 2012 [facility] [address] [id number] [place] [address]- 2545 16 Nov, 2012 [facility] [address] [id number] [place] [address]- 4622 Nov, [facility] [address] [id number] [place] [address]- 8978 Nov, [facility] [address] [id number] [place] [address]- 5056 Nov, [facility] [address] [id number] [place] [address]- 8371 Oct, [facility] [address] [id number] [place] [address]- 8068 Oct, [facility] [address] [id number] [place] [address]- 1550 Oct, [facility] [address] [id number] [place] [address]- 9079 Oct, [facility] [address] [id number] [place] [address]- 0080 Oct, [facility] [address] [id number] [place] [address]- 1469 Oct, [facility] [address] [id number] [place] [address]- 6319 Sep, [facility] [address] [id number] [place] [address]- 7923 Sep, [facility] [address] [id number] [place] [address]- 7951 Sep, [facility] [address] [id number], [place] [address]- 5339 14 Sep, 2012 [facility] [address] [id number] [place] [address]- 8476 13 Sep, 2012 [facility] [address] [id number] [place] [address]- 5179 10 Sep, 2012 [facility] [address] [id number] [place] [address]- 1504 07 Sep, 2012 [facility] [address] [id number] [place] [address]- 0956 Sep, [facility] [address] [id number] [place] [address]- 6880 Sep, [facility] [address] [id number] [place] [address]- 7727 August, [facility] [address] [id number] [place] [address]- 8842 August, [facility] [address] [id number] [place] [address]- 8854 August, [facility] [address] [id number] [place] [address]- 6052 August, [facility] [address] [id number] [place] [address]- 0638 August, [facility] [address] [id number] [place] [address]- 2556 August, [facility] [address] [id number] [place] [address]- 6380 August, [facility] [address] [id number] [place] [address]- 7587 August, [facility] [address] [id number] [place] [address]- 7189 Jul, [facility] [address] [id number] [place] [address]- 9713 Jul, [facility] [address] [place] [id number] [facility] [address] [id number] [place] [address]- 8333 Jun, [facility] [address] [id number] [place] [address]- 3263 Jun, [facility] [address] [id number] [place] [address]- 4582 Jun, [facility] [address] [id number] [place] [address]- 2748 Jun, [facility] [address] [id number] [place] [address]- 2349 Jun, [facility] [address] [id number] [place] [address]- 2535 Jun, [facility] [address] [id number] [place] [address]- 9854 May, [facility] [address] [id number] [place] [address]- 3264 May, [facility] [address] [id number] [place] [address]- 9487 May, [facility] [address] [id number] [place] [address]- 9292 May, [facility] [address] [id number] [place] [address]- 2711 May, [facility] [address] [id number] [place] [address]- 7234 Apr, [facility] [address] [id number] [place] [address]- 8572 Apr, [facility] [address] [id number] [place] [address]- 2787 Apr, [facility] [address] [id number] [place] [address]- 0551 Apr, [facility] [address] [id number] [place] [address]- 0199 Apr, [facility] [address] [id number] [place] [address]- 9341 Apr, [facility] [address] [id number] [place] [address]- 4447 Mar, [facility] [address] [id number] [place] [address]- 7218 20 Mar, 2012 [facility] [address] [id number] [place] [address]- 7846 20 Mar, 2012 [facility] [address] [id number] [place] [address]- 4436 19 Mar, 2012 [facility] [address] [id number] [place] [address]- 2186 19 Mar, 2012 [facility] [facility] [address] [id number] [place] 1237 18 Mar, 2012 [facility] [address] [id number] [place] [address]- 6405 18 Mar, 2012 [facility] [address] [id number] [place] [address]- 6590 Mar, [facility] [facility] [address] [id number] [place] [address]- 6126 Mar, [facility] [address] [id number] [place] [address]- 2900 05 Mar, 2012 [facility] [address] [id number] [place] [address]- 1909 05 Mar, 2012 [facility] [facility] [address] [id number] [place] [address]- 9907 28 Feb, 2012 [facility] [facility] [address] [id number] [place] [address]- 8545 28 Feb, 2012 [facility] [facility] [address] [id number], [place] [address]- 5026 Feb, [facility] [address] [id number] [place] [address]- 4756 Feb, [facility] [address] [id number] [place] [address]- 7040 Feb, [facility] [address] [id number] [place] [address]- 1166 16 Feb, 2012 [facility] [address] [id number] [place] [address]- 0697 16 Feb, 2012 [facility] [address] [id number] [place] [address]- 6794 Feb, [facility] [place] [facility] [address] [id number] [place] 4386 Feb, [facility] [place] [facility] [address] [id number] [place] [address]- 7209 Feb, [facility] [place] [facility] [address] [id number] [place] [address]- 5460 Feb, [facility] [place] [facility] [address] [id number] [place] [address]- 4988 Jan, [facility] [place] [facility] [address] [id number] [place] [address]- 9416 Jan, [facility] [place] [facility] [address] [id number] [place] [address]- 0152 Jan, [facility] [place] [facility] [address] [id number] [place] [address]- 4091 Jan, [facility] [place] [facility] [address] [id number] [place] [address]- 3365 Jan, [facility] [place] [facility] [address] [facility] [place] [place] [id number] [place] [address]- 1882 Jan, [facility] [place] [facility] [address] [id number] [place] [address]- 8584 09 Jan, 2012 [facility] [place] [facility] [address] [id number] [place] [address]- 0943 24 Sep2011 [facility] [place] [facility] [address] [id number] [place] [address]- 8814 17 Sep2011 [facility] [place] [facility] [address] [id number] [place] [address]- 2581 13 Sep2011 [facility] [place] [facility] [address] [id number] [place] [address]- 6322 Dec, [facility] [place] [facility] [address] [id number] [place] [address]- 7346 Nov, [facility] [place] [facility] [address] [id number] [place] [address]- 2546 Nov, [facility] [place] [facility] [address] [id number] [place] [address]- 3848 Nov, [facility] [place] [facility] [address] [id number] [place] [address]- 3299 Nov, [facility] [place] [facility] [address] [id number] [place] [address]- 3419 Nov, [facility] [place] [facility] [address] [id number] [place] [address]- 4531 Nov, [facility] [place] [facility] [address] [id number] [place] [address]- 9948 Nov, [facility] [place] [facility] [address] [id number] [place] [address]- 1078 Nov, [facility] [place] [facility] [address] [id number] [place] [address]- 4965 Nov, [facility] [place] [facility] [address] [id number] [place] [address]- 9948 Nov, [facility] [place] [facility] [address] [id number] [place] [address]- 9838 Nov, [facility] [place] [facility] [address] [id number] [place] [address]- 1386 Nov, [facility] [place] [facility] [address] [id number] [place] [address]- 8324 Nov, [facility] [place] [facility] [address] [id number] [place] [address]- 7943 Oct, [facility] [place] [facility] [address] [id number] [place] [address]- 0316 Oct, [facility] [place] [facility] [address] [id number] [place] [address]- 9983 Oct, [facility] [place] [facility] [address] [id number] [place] [address]- 5048 Oct, [facility] [place] [facility] [address] [id number] [place] [address]- 0712 Oct, [facility] [place] [facility] [address] [id number] [place] [address]- 6844 Oct, [facility] [place] [facility] [address] [id number] [place] [address]- 4861 Oct, [facility] [place] [facility] [address] [id number] [place] [address]- 6636 Oct, [facility] [place] [facility] [address] [id number] [place] [address]- 4130 Oct, [facility] [place] [facility] [address] [id number] [place] [address]- 4229 Sep, [facility] [place] [facility] [address] [id number] [place] [address]- 5525 Sep, [facility] [place] [facility] [address] [id number] [place] [address]- 0953 Sep, [facility] [place] [facility] [address] [id number] [place] [address]- 3347 Sep, [facility] [place] [facility] [address] [id number] [place] [address]- 2681 Sep, [facility] [place] [facility] [address] [id number] [place] [address]- 3334 Sep, [facility] [place] [facility] [address] [id number] [place] [address]- 1219 Sep, [facility] [place] [facility] [address] [id number] [place] [address]- 8724 Sep, [facility] [place] [facility] [address] [id number] [place] [address]- 7833 August, [facility] [place] [facility] [address] [id number], [place] [address]- 3228 August, [facility] [address] [address] August, [facility] [address] 3946 August, [facility] [address] 5640 August, [facility] [address]65[address], [place] [address]- 1824 August, [facility] [id number] [place] [address]- 9138 August, [facility] [address], [place] [address]- 9019 August, [facility] [id number] [place] [address]- 1708 August, [facility] [address], [place] [address]- 7563 August, [facility] [address]65[address], [place] [address]- 5929 August, [facility] [address], [place] [address]- 5544 August, [facility] [address], [place] [address]- 3703 Oct, IMMUNIZATIONS No Known Immunizations SOCIAL HISTORY Never Assessed REASON FOR VISIT Med Refill PLAN OF CARE VITAL SIGNS MEDICATIONS Medication Instructions Dosage Frequency Start Date End Date Duration Status Excedrin Extra Strength 250-250-65 MG Orally Once a day PRN NO MORE THAN 2 PER WEEK 1 tablet Sep, Active RESULTS No Results PROCEDURES No Known [...] Surgical History bladder surgery Hospitalization History [facility] right [facility]in pain 05/2011 Hospitalization History [facility] for wound on buttocks 08/2012 Hospitalization History [facility], hypoxia secondary to pneumonia 12/02-12/09 Hospitalization History Pneumonia, elevated CO2 on Bipap was in ICU 08/2013 Hospitalization History Hypoxia, Exacerbation COPD, Chest pain 09/05/15 Hospitalization History suicidal ideations-[place] 12/28 Hospitalization History hypoxia--[facility] 02/13/2016 Hospitalization History shortness of breath at june 2016 Hospitalization History Shortness of breath at august 2016 Hospitalization History SOB, chest pain at 12/2016
--- OUTSIDE RECORDS SUMMARY | 2018-02-11 13:32 | XMS REPORT ---
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 [place] [address] [id number] Mar, Dental examination Z01.20 [facility] [id number] [place] [address] 14659- 6825 Mar, Chronic diarrhea K52.9 ; Intractable vomiting with nausea, vomiting of unspecified type R11.2 ; Cellulitis, unspecified cellulitis site L03.90 ; Type 2 diabetes mellitus with diabetic polyneuropathy E11.42 and Postinflammatory hyperpigmentation L81.0 [facility] [address], [place] [address]- 5673 Mar, Unspecified mood [affective] disorder F39 [facility] [id number] [place] [address] 80767- 2528 Mar, Unspecified mood [affective] disorder F39 [facility] [id number] [place] [address] 94786- 0243 Mar, [facility] [id number] [place] [address] 46290- 5137 Mar, [facility] [id number] [place] [address] 81819- 5597 Mar, [facility] [id number] [place] [address] 67796- 1896 Mar, [facility] [id number], [place] [address]- 0474 Mar, [facility] [id number] [place] [address] 32701- 4084 Mar, [facility] [address], [place] [address]- 2209 Feb, Unspecified mood [affective] disorder F39 [facility] [id number], [place] [address]- 4648 Feb, [facility] [id number] [place] [address] 36749- 5990 Feb, [facility] [address], [place] [address]- 5513 Jan, Unspecified mood [affective] disorder F[address] [id number] [id number] Jan, Encounter for dental examination Z01.20 [facility] [address], [place] [address]- 5006 Jan, [facility] [id number] [place] [address] 80559- 2714 Jan, [facility] [id number] [place] [address] 47272- 1471 Jan, [facility] [id number] [place] [address] 18551- 7244 Jan, [facility] [address], [place] [address]- 3363 Jan, [facility] [id number] [place] [address] 02538- 0926 Jan, Abdominal abscess K65.1 and Dental caries K02.9 [facility] [id number] [place] [address] 47958- 7071 Jan, [facility] [id number] [place] [address] 73822- 0803 30 Dec, 2014 Diabetes with neurological manifestations, type II or unspecified type, not stated as uncontrolled 250.60 ; Essential hypertension, benign 401.1 ; Concussion 850.9 and Skin texture changes 782.8 [facility] [id number] [place] [address] 34912- 3423 25 Dec, 2014 [facility] [id number] [place] [address] 17102- 4548 24 Dec, 2014 [facility] [id number] [place] [address] 80060- 0407 22 Dec, 2014 [facility] [id number] [place] [address] 53657- 3185 21 Dec, 2014 [facility] [id number] [place] [address] 47797- 9959 17 Dec, 2014 Affective disorder 296.90 [facility] [id number] [place] [address] 76602- 8794 14 Dec, 2014 [facility] [id number] [place] [address] 37377- 6539 10 Dec, 2014 Affective disorder 296.90 [facility] [id number] [place] [address] 26810- 2541 04 Dec, 2014 [facility] [id number] [place] [address] 68416 2542 04 Dec, 2014 [facility] [id number] [place] [address] 33275- 2549 04 Dec, 2014 [facility] [id number] [place] [address] 99953- 2545 03 Dec, 2014 [facility] [id number] [place] [address] 87212- 0595 Nov, Affective disorder 296.90 [facility] [id number] [place] [address] 66401- 2542 Nov, [facility] [address], [place] [address] 2546 Nov, Affective disorder 296.90 [facility] [id number] [place] [address] 72761 2546 Nov, Diarrhea 787.91 [facility] [id number] [place] [address] 54579 2546 Nov, [facility] [id number] [place] [address] 38913 2546 Nov, Diarrhea 787.91 [facility] [id number] [place] [address] 76623- 2546 Nov, Diarrhea 787.91 and Hyperlipidemia 272.4 [facility] [id number] [place] [address] 53224 2546 Nov, Diarrhea 787.91 [facility] [id number] [place] [address] 30057 2546 Nov, Affective disorder 296.90 [facility] [address] [place] [address] 62671 2546 Nov, Affective disorder 296.90 [facility] [id number] [place] [address] 28903 2546 Nov, Affective disorder 296.90 [facility] [address], [place] [address] 2546 Nov, [facility] [id number] [place] [address] 75403 2546 Nov, [facility] [address], [place] [address] 2546 Nov, [facility] [id number] [place] [address] 48758 2546 Nov, Episodic mood disorder 296.90 [facility] [address], [place] [address] 2546 Nov, [facility] [address] [facility] [id number] [place] [address]- 9094 Nov, [facility] [address] [place] [address]- 8776 Nov, [facility] [address] [facility] [id number] [place] [address]- 8776 Nov, [facility] [address], [place] [address]- 2417 Nov, [facility] [address], [place] [address]- 9656 Nov, Lymphedema 457.1 ; Hyperlipidemia 272.4 ; Essential hypertension, benign 401.1 and Numbness of toes 782.0 [facility] [address], [place] [address]- 9100 Nov, Episodic mood disorder 296.90 [facility] [address], [place] [address]- 6574 Oct, [facility] [address], [place] [address]- 8812 Oct, [facility] [address], [place] [address]- 5394 Oct, [facility] [address], [place] [address]- 3756 Oct, [facility] [address], [place] [address]- 2597 Oct, [facility] [id number] [address]- 1243 Oct, [facility] [address] [place] [address]- 1288 Oct, [facility] [id number] [address]- 4201 Oct, [facility] [address], [place] [address]- 5579 Oct, Episodic mood disorder 296.90 [facility] [address], [place] [address]- 8906 30 Sep, 2014 [facility] [address], [place] [address]- 6889 Sep, [facility] [address], [place] [address]- 7063 Sep, [facility] [id number] [place] [address] 04813- 5961 Sep, [facility] [id number] [place] [address] 67228- 7225 Sep, [facility] [address] [place] [address] 60096- 6175 Sep, Episodic mood disorder 296.90 [facility] [address] [place] [address] 63998- 3402 Sep, Unspecified episodic mood disorder 296.90 [facility] [address], [place] [address]- 6753 Sep, [facility] [address], [place] [address]- 7196 Sep, [facility] [address], [place] [address]- 0742 16 Sep, 2014 Episodic mood disorder 296.90 [facility] [address], [place] [address]- 1052 15 Sep, 2014 [facility] [address], [place] [address]- 4388 Sep, [facility] [address], [place] [address]- 6718 12 Sep, 2014 [facility] [address], [place] [address]- 9389 09 Sep, 2014 Hematemesis 578.0 and Vomiting 787.03 [facility] [address], [place] [address]- 2409 Sep, Episodic mood disorder 296.90 [facility] [address], [place] [address]- 9139 Sep, [facility] [address], [place] [address]- 8446 Sep, [facility] [id number] [place] [address] 65803- 2382 Sep, Diabetes mellitus without mention of complication, type II or unspecified type, not stated as uncontrolled 250.00 and Other chronic pain 338.29 [facility] [id number] [place] [address] 07771- 1653 Sep, Episodic mood disorder 296.90 [facility] [address], [place] [address]- 2092 Sep, [facility] [address], [place] [address]- 2442 Sep, Episodic mood disorder 296.90 [facility] [address], [place] [address]- 4392 Sep, [facility] [address], [place] [address]- 8020 August, [facility] [address], [place] [address]- 5365 August, [facility] [address], [place] [address]- 6900 August, Episodic mood disorder 296.90 [facility] [address], [place] [address]- 6894 August, [facility] [address], [place] [address]- 2206 August, Unspecified episodic mood disorder 296.90 [facility] [address], [place] [address]- 9945 August, Vomiting 787.03 [facility] [place] [facility] [address] [id number] [place] [address]- 1151 August, [facility] [place] [facility] [address] [id number] [place] [address]- 3156 August, [facility] [place] [facility] [address] [facility] [id number] [place] [address]- 0565 August, [facility] [place] [facility] [address] [id number] [place] [address]- 3135 August, [facility] [place] [facility] [address] [id number] [place] [address]- 1055 August, [facility] [place] [facility] [address] [id number] [place] [address]- 1971 Jul, [facility] [place] [facility] [address] [id number] [place] [address]- 5619 Jul, [facility] [place] [facility] [address] [id number] [place] [address]- 1784 Jul, [facility] [place] [facility] [address] [id number] [place] [address]- 3860 Jun, [facility] [place] [facility] [address] [id number] [place] [address] Jun, [facility] [place] [facility] [address] [id number] [place] [address] Jun, [facility] [place] [facility] [address] [id number] [address] Jun, [facility] [place] [facility] [address] [id number] [place] [address] Jun, [facility] [place] [facility] [address] [facility] [id number] [place] [address] Jun, [facility] [place] [facility] [address] [facility] [id number] [place] [address] Jun, [facility] [place] [facility] [address] [id number] [place] [address] 30 Jun, 2014 [facility] [address] [id number] [place] [address] Jun, [facility] [place] [facility] [address] [id number] [place] [address] Jun, [facility] [place] [facility] [address] [id number] [place] [address] Jun, [facility] [place] [facility] [address] [id number] [place] [address] Jun, [facility] [place] [facility] [address] [id number] [place] [address] Jun, [facility] [place] [facility] [address] [id number] [place] [address] Jun, [facility] [place] [facility] [address] [id number] [place] [address] Jun, [facility] [place] [facility] [address] [id number] [place] [address] Jun, [facility] [place] [facility] [address] [id number] [place] [address] Jun, [facility] [place] [facility] [address] [id number] [place] [address] Jun, [facility] [place] [facility] [address] [id number] [place] [address] Jun, [facility] [place] [facility] [address] [id number] [place] [address] Jun, [facility] [place] [facility] [address] [id number] [place] [address] Jun, [facility] [place] [facility] [address] [id number] [place] [address] Jun, [facility] [place] [facility] [address] [id number] [place] [address] Jun, [facility] [place] [facility] [address] [id number] [place] [address] 20 Jun, 2014 [facility] [place] [facility] [address] [id number] [place] [address] 20 Jun, 2014 [facility] [place] [facility] [address] [id number] [place] [address] 19 Jun, 2014 [facility] [place] [facility] [address] [id number] [place] [address] 19 Jun, 2014 [facility] [place] [facility] [address] [id number] [place] [address] 18 Jun, 2014 [facility] [place] [facility] [address] [id number] [place] [address] 18 Jun, 2014 [facility] [place] [facility] [address] [id number] [place] [address] 17 Jun, 2014 [facility] [place] [facility] [address] [id number] [place] [address] 17 Jun, 2014 [facility] [place] [facility] [address] [id number] [place] [address] 16 Jun, 2014 [facility] [place] [facility] [address] [id number] [place] [address] 16 Jun, 2014 [facility] [place] [facility] [address] [id number] [place] [address] 16 Jun, 2014 [facility] [place] [facility] [address] [id number] [place] [address] 16 Jun, 2014 [facility] [place] [facility] [address] [address] [id number] [place] [address] 16 Jun, 2014 [facility] [place] [facility] [address] [id number] [place] [address] 4971 16 Jun, 2014 [facility] [place] [facility] [address] [id number] [place] [address]- 1775 13 Jun, 2014 [facility] [place] [facility] [address] [id number] [place] [address] 8010 Jun, [facility] [place] [facility] [address] [id number] [place] [address] 6383 Jun, [facility] [place] [facility] [address] [id number] [place] [address] 8009 Jun, [facility] [place] [facility] [address] [id number] [place] [address] 1966 Jun, 2014 [facility] [place] [facility] [address] [id number] [place] [address]- 6038 Jun, 2014 [facility] [place] [facility] [address] [id number] [place] [address] 1600 Jun, 2014 [facility] [place] [facility] [address] [id number] [place] [address]- 3309 Jun, 2014 [facility] [place] [facility] [address] [id number] [place] [address]- 7976 Jun, [facility] [place] [facility] [address] [id number] [place] [address]- 0459 Jun, [facility] [place] [facility] [address] [id number] [place] [address]- 3039 Jun, [facility] [place] [facility] [address] [id number] [place] [address]- 3213 Jun, [facility] [place] [facility] [address] [id number], [place] [address] 7[address] Jun, [facility] [place] [facility] [address] [id number] [place] [address]- 1693 Jun, [facility] [place] [facility] [address] [id number] [place] [address]- 0461 Jun, [facility] [place] [facility] [address] [id number] [place] [address]- 2113 Jun, 2014 [facility] [place] [facility] [address] [id number] [place] [address]- 5846 Jun, 2014 [facility] [place] [facility] [address] [id number] [place] [address]- 2072 Jun, [facility] [place] [facility] [address] [id number] [place] [address]- 8942 Jun, [facility] [place] [facility] [address] [id number] [place] [address]- 5355 Jun, [facility] [place] [facility] [address] [id number] [place] [address]- 9183 May, 2014 [facility] [place] [facility] [address] [id number] [place] [address]- 3696 May, 2014 [facility] [place] [facility] [address] [id number] [place] [address]- 4035 May, 2014 [facility] [place] [facility] [address] [facility] [id number] [place] [address]- 9819 May, 2014 [facility] [place] [facility] [address] [facility] [id number] [place] [address]- 4775 May, 2014 [facility] [place] [facility] [address] [id number] [place] [address]- 3158 May, 2014 [facility] [place] [facility] [address] [facility] [id number] [place] [address]- 1620 May, 2014 [facility] [place] [facility] [address] [facility] [id number] [place] [address]- 5781 May, 2014 [facility] [place] [facility] [address] [facility] [id number] [place] [address]- 8480 May, 2014 [facility] [place] [facility] [address] [facility] [id number] [place] [address]- 6319 May, 2014 [facility] [place] [facility] [address] [id number] [place] [address]- 2326 May, 2014 [facility] [place] [facility] [address] [facility] [id number] [place] [address]- 7808 May, 2014 [facility] [place] [facility] [address] [facility] [id number] [place] [address]- 8458 13 May, 2014 [facility] [place] [facility] [address] [facility] [id number] [place] [address]- 9336 May, 2014 [facility] [place] [facility] [address] [facility] [id number] [place] [address]- 2466 May, 2014 [facility] [place] [facility] [address] [facility] [id number] [place] [address]- 1452 May, 2014 [facility] [place] [facility] [address] [facility] [id number] [place] [address]- 9784 May, 2014 [facility] [place] [facility] [address] [facility] [id number] [place] [address]- 1551 May, 2014 [facility] [place] [facility] [address] [id number] [place] [address]- 4889 May, 2014 [facility] [place] [facility] [address] [id number] [place] [address]- 6272 May, 2014 [facility] [place] [facility] [address] [facility] [id number] [place] [address] 1990 May, 2014 [facility] [place] [facility] [address] [id number] [place] [address]- 2622 May, 2014 [facility] [place] [facility] [address] [id number], [place] [address] 5880 May, 2014 [facility] [place] [facility] [address] [facility] [id number], [place] [address]- 0417 May, 2014 [facility] [place] [facility] [address] [facility] [id number] [place] [address]- 3588 May, 2014 [facility] [place] [facility] [address] [facility] [id number] [place] [address]- 4921 May, 2014 [facility] [place] [facility] [address] [facility] [id number], [place] [address]- 4791 May, 2014 [facility] [place] [facility] [id number], [place] [address] 0[address] Apr, [facility] [place] [facility] [address] [id number] [place] [address]- 8820 Apr, [facility] [place] [facility] [address] [id number] [place] [address]- 6517 Apr, [facility] [place] [facility] [address] [id number] [place] [address]- 5679 Apr, [facility] [place] [facility] [address] [id number] [place] [address]- 5860 Apr, [facility] [place] [facility] [address] [id number] [place] [address]- 3090 Apr, [facility] [place] [facility] [address] [id number] [place] [address]- 3781 Apr, [facility] [place] [facility] [address] [id number] [place] [address]- 4284 Apr, [facility] [place] [facility] [address] [id number] [place] [address]- 1644 Apr, [facility] [place] [facility] [address] [id number] [place] [address]- 5234 Apr, [facility] [place] [facility] [address] [id number] [place] [address]- 1822 Apr, [facility] [place] [facility] [address] [id number], [place] [address]- 6653 Apr, [facility] [place] [facility] [address] [id number], [place] [address]- 2973 Apr, [facility] [place] [facility] [address] [id number] [place] [address]- 3378 Apr, [facility] [place] [facility] [address] [id number], [place] [address]- 6773 Apr, [facility] [place] [facility] [address] [id number] [place] [address]- 7679 Apr, [facility] [place] [facility] [address] [id number] [place] [address]- 1778 Apr, [facility] [address] [id number] [place] [address]- 2130 Apr, [facility] [place] [facility] [address] [id number] [place] [address]- 3694 Apr, [facility] [address] [id number] [place] [address]- 3066 Apr, [facility] [address] [id number] [place] [address]- 2264 Mar, [facility] [address] [id number] [place] [address]- 2485 Mar, [facility] [address] [id number] [place] [address]- 4628 Mar, [facility] [address] [id number] [place] [address]- 6438 Mar, [facility] [address] [id number] [place] [address]- 4468 Mar, [facility] [address] [id number] [place] [address]- 8098 Mar, [facility] [address] [id number] [place] [address]- 6585 Mar[facility] [place] [facility] [address] [id number] [place] [address]- 0027 18 Mar, 2014 [facility] [place] [facility] [address] [id number] [place] [address]- 4411 15 Mar, 2014 [facility] [place] [facility] [address] [id number] [place] [address]- 5645 15 Mar, 2014 [facility] [place] [facility] [address] [id number] [place] [address]- 0065 15 Mar, 2014 [facility] [place] [facility] [address] [id number] [place] [address]- 7356 Mar, [facility] [place] [facility] [address] [id number] [place] [address]- 2966 Mar, [facility] [place] [facility] [address] [id number] [place] [address]- 9406 Mar, [facility] [place] [facility] [address] [id number] [place] [address]- 6618 Mar, [facility] [place] [facility] [address] [id number] [place] [address]- 0902 Mar, [facility] [place] [facility] [address] [id number] [place] [address]- 2570 Feb, [facility] [place] [facility] [address] [id number] [place] [address]- 6859 Feb, [facility] [place] [facility] [address] [id number] [place] [address]- 8740 Feb, [facility] [place] [facility] [address] [id number] [place] [address]- 6472 Feb, [facility] [place] [facility] [address] [id number] [place] [address]- 1157 Feb, [facility] [place] [facility] [address] [id number] [place] [address]- 0108 Feb, [facility] [place] [facility] [address] [id number] [place] [address]- 2824 Feb, [facility] [place] [facility] [address] [id number] [place] [address]- 4101 Feb, [facility] [place] [facility] [address] [id number] [place] [address]- 7385 Feb, [facility] [place] [facility] [address] [id number] [place] [address]- 8443 Feb, [facility] [place] [facility] [address] [id number] [place] [address]- 2695 Feb, [facility] [place] [facility] [address] [id number] [place] [address]- 3276 Feb, [facility] [place] [facility] [address] [id number] [place] [address]- 0391 17 Feb, 2014 [facility] [place] [facility] [address] [id number] [place] [address]- 9868 Feb, [facility] [place] [facility] [address] [id number] [place] [address]- 6358 Feb, [facility] [place] [facility] [address] [id number] [place] [address]- 6685 Feb, [facility] [place] [facility] [address] [id number] [place] [address]- 4271 Feb, [facility] [place] [facility] [address] [id number] [place] [address]- 8678 Feb, [facility] [place] [facility] [address] [id number] [place] [address]- 7479 Feb, [facility] [place] [facility] [address] [id number] [place] [address]- 2243 Feb, [facility] [place] [facility] [address] [id number] [place] [address]- 0456 Feb, [facility] [place] [facility] [address] [id number] [place] [address]- 1541 Jan, [facility] [place] [facility] [address] [id number] [place] [address]- 4165 Jan, [facility] [place] [facility] [address] [id number], [place] [address]- 3342 Jan, [facility] [place] [facility] [address] [id number] [place] [address]- 8454 Jan, [facility] [place] [facility] [address] [id number] [place] [address]- 3761 Jan, [facility] [place] [facility] [address] [id number], [place] [address]- 0998 Jan, [facility] [place] [facility] [address] [id number] [place] [address]- 9028 21 Jan, 2013 [facility] [place] [facility] [address] [id number] [place] [address]- 2404 21 Jan, 2013 [facility] [place] [facility] [address] [id number] [place] [address]- 6838 20 Jan, 2013 [facility] [place] [facility] [address] [id number] [place] [address]- 6374 20 Jan, 2013 [facility] [place] [facility] [address] [id number] [place] [address]- 7878 17 Jan, 2013 [facility] [place] [facility] [address] [id number] [place] [address]- 3428 17 Jan, 2013 [facility] [place] [facility] [address] [id number] [place] [address]- 4824 17 Jan, 2014 [facility] [place] [facility] [address] [id number] [place] [address]- 9916 17 Jan, 2014 [facility] [place] [facility] [address] [id number] [place] [address]- 8669 15 Jan, 2014 [facility] [place] [facility] [address] [id number] [place] [address]- 4964 15 Jan, 2014 [facility] [place] [facility] [address] [id number] [place] [address]- 6415 14 Jan, 2014 [facility] [place] [facility] [address] [id number] [place] [address]- 0578 14 Jan, 2014 [facility] [place] [facility] [address] [id number] [place] [address]- 5038 13 Jan, 2014 [facility] [place] [facility] [address] [id number] [place] [address]- 2910 13 Jan, 2013 [facility] [place] [facility] [address] [id number] [place] [address]- 6092 13 Jan, 2013 [facility] [place] [facility] [address] [id number] [place] [address]- 0487 13 Jan, 2014 [facility] [place] [facility] [address] [id number] [place] [address]- 8485 10 Jan, 2014 [facility] [place] [facility] [address] [id number] [place] [address]- 9155 02 Jan, 2014 [facility] [place] [facility] [address] [id number] [place] [address]- 8496 Jan, [facility] [place] [facility] [address] [id number] [place] [address]- 9979 25 Dec, 2013 [facility] [place] [facility] [address] [id number] [place] [address]- 1590 25 Dec, 2013 [facility] [place] [facility] [address] [id number] [place] [address]- 8798 23 Dec, 2013 [facility] [place] [facility] [address] [id number] [place] [address]- 5334 23 Dec, 2013 [facility] [place] [facility] [address] [id number], [place] [address]- 0571 19 Dec, 2013 [facility] [place] [facility] [address] [id number] [place] [address]- 9091 19 Dec, 2013 [facility] [place] [facility] [address] [id number] [place] [address]- 9287 17 Dec, 2013 [facility] [place] [facility] [address] [id number], [place] [address]- 8916 17 Sep, 2013 [facility] [place] [facility] [address] [id number], [place] [address]- 2540 09 Sep, 2013 [facility] [place] [facility] [address] [id number], [place] [address]- 2546 09 Sep, 2013 [facility] [place] [facility] [address] [id number], [place] [address]- 9189 08 Sep, 2013 [facility] [place] [facility] [address] [id number], [place] [address]- 254 08 Sep, 2013 [facility] [place] [facility] [address] [id number] [place] [address]- 8278 04 Sep, 2013 [facility] [place] [facility] [address] [id number] [place] [address]- 1306 04 Dec, 2013 [facility] [place] [facility] [address] [id number] [place] [address]- 8361 Dec, 2013 [facility] [place] [facility] [address] [id number] [place] [address]- 9831 Dec, 2013 [facility] [place] [facility] [address] [id number] [place] [address]- 4984 Dec, 2013 [facility] [place] [facility] [address] [id number] [place] [address]- 3681 Dec, 2013 [facility] [place] [facility] [address] [id number] [place] [address]- 6305 Nov, [facility] [place] [facility] [address] [id number] [place] [address]- 6549 Nov, [facility] [place] [facility] [address] [id number] [place] [address]- 9614 Nov, [facility] [place] [facility] [address] [id number] [place] [address]- 5255 Nov, [facility] [place] [facility] [address] [id number] [place] [address]- 3998 Nov, [facility] [place] [facility] [address] [id number] [place] [address]- 8980 Nov, [facility] [place] [facility] [address] [id number] [place] [address]- 3943 Nov, [facility] [place] [facility] [address] [id number] [place] [address]- 4005 Nov, [facility] [place] [facility] [address] [id number] [place] [address]- 7921 Nov, [facility] [place] [facility] [address] [id number] [place] [address]- 3339 Nov, [facility] [place] [facility] [address] [id number] [place] [address]- 3399 Nov, [facility] [place] [facility] [address] [id number] [place] [address]- 9526 Nov, [facility] [place] [facility] [address] [id number] [place] [address]- 6943 Oct, [facility] [place] [facility] [address] [id number] [place] [address]- 5592 Oct, [facility] [place] [facility] [address] [id number] [place] [address]- 2684 Oct, [facility] [place] [facility] [address] [id number] [place] [address]- 0305 Oct, [facility] [place] [facility] [address] [id number] [place] [address]- 7412 Oct, [facility] [place] [facility] [address] [id number] [place] [address]- 3180 Oct, [facility] [place] [facility] [address] [id number] [place] [address]- 5659 Oct, [facility] [place] [facility] [address] [id number] [place] [address]- 8162 Oct, [facility] [place] [facility] [address] [id number] [place] [address]- 3536 Oct, [facility] [place] [facility] [address] [id number] [place] [address]- 3361 Oct, [facility] [place] [facility] [address] [id number] [place] [address]- 9795 Oct, [facility] [place] [facility] [address] [id number] [place] [address]- 2401 Oct, [facility] [place] [facility] [address] [id number] [place] [address]- 7354 Oct, [facility] [place] [facility] [address] [id number] [place] [address]- 5303 14 Oct, 2013 [facility] [place] [facility] [address] [id number] [place] [address]- 9174 Oct, [facility] [place] [facility] [address] [id number] [place] [address]- 5962 13 Oct, 2013 [facility] [place] [facility] [address] [id number] [place] [address]- 3311 Oct, [facility] [place] [facility] [address] [id number] [place] [address]- 3107 Sep, [facility] [place] [facility] [address] [id number] [place] [address]- 9567 Sep, [facility] [place] [facility] [address] [id number] [place] [address]- 8162 Sep, [facility] [place] [facility] [address] [id number] [place] [address]- 3870 Sep, [facility] [place] [facility] [address] [id number] [place] [address]- 3989 18 Sep, 2013 [facility] [place] [facility] [address] [id number] [place] [address]- 0562 18 Sep, 2013 [facility] [place] [facility] [address] [id number] [place] [address]- 6091 17 Sep, 2013 [facility] [place] [facility] [address] [id number] [place] [address]- 9209 17 Sep, 2013 [facility] [place] [facility] [address] [id number] [place] [address]- 8272 11 Sep, 2013 [facility] [place] [facility] [address] [id number] [place] [address]- 2552 Sep, [facility] [place] [facility] [address] [id number] [place] [address]- 0113 Sep, [facility] [place] [facility] [address] [id number] [place] [address] Sep, [facility] [place] [facility] [address] [id number] [place] [address] Sep, [facility] [place] [facility] [address] [id number] [place] [address] Sep, [facility] [place] [facility] [address] [id number] [place] [address] Sep, [facility] [place] [facility] [address] [id number] [place] [address] Sep, [facility] [place] [facility] [address] [id number] [place] [address] Sep, [facility] [place] [facility] [address] [id number] [place] [address] Sep, [facility] [place] [facility] [address] [id number] [place] [address] Sep, [facility] [place] [facility] [address] [id number] [place] [address] Sep, [facility] [place] [facility] [address] [id number] [place] [address] Sep, [facility] [place] [facility] [address] [id number] [place] [address] Sep, [facility] [place] [facility] [address] [id number] [place] [address] August, [facility] [place] [facility] [address] [id number] [place] [address] August, [facility] [place] [facility] [address] [id number] [place] [address] August, [facility] [place] [facility] [address] [id number] [place] [address] August, [facility] [place] [facility] [address] [id number] [place] [address] August, [facility] [place] [facility] [address] [id number] [place] [address] August, [facility] [place] [facility] [address] [id number] [place] [address] August, [facility] [place] [facility] [address] [id number] [place] [address]- [address] August, [facility] [place] [facility] [address] [id number] [place] [address] 39[address] August, [facility] [place] [facility] [address] [id number] [place] [address] 8449 August, [facility] [place] [facility] [address] [id number] [place] [address]- [address]7 August, [facility] [place] [facility] [address] [id number] [place] [address]- [address] Jul, [facility] [place] [facility] [address] [id number] [place] [address]- 49[address] Jul, [facility] [place] [facility] [address] [id number] [place] [address] Jul, [facility] [place] [facility] [address] [id number] [place] [address]- 15[address] Jul, [facility] [place] [facility] [address] [id number] [place] [address] Jul, [facility] [place] [facility] [address] [id number] [place] [address] Jul, [facility] [place] [facility] [address] [id number] [place] [address]- 4085 Jul, [facility] [place] [facility] [address] [id number] [place] [address]- 1063 Jul, [facility] [place] [facility] [address] [id number] [place] [address] Jul, [facility] [place] [facility] [address] [id number] [place] [address]57 Jul, [facility] [place] [facility] [address] [id number] [place] [address]- [address] 16 Jul, 2013 [facility] [place] [facility] [address] [id number] [place] [address] Jul, [facility] [place] [facility] [address] [id number] [place] [address]991 Jul, [facility] [place] [facility] [address] [id number] [place] [address]- [address] Jul, [facility] [place] [facility] [address] [id number] [place] [address]- 9469 Jul, [facility] [place] [facility] [address] [id number] [place] [address]- 9895 Jul, [facility] [place] [facility] [address] [id number] [place] [address] 43[address] Jul, [facility] [place] [facility] [address] [id number] [place] [address] 9760 Jul, [facility] [place] [facility] [address] [id number] [place] [address]- 59[address] Jul, [facility] [place] [facility] [address] [id number] [place] [address]- [address] Jul, [facility] [place] [facility] [address] [id number] [place] [address] 1319 Jul, [facility] [place] [facility] [address] [id number] [place] [address]- [address]796 Jul, [facility] [place] [facility] [address] [id number] [place] [address]- [address]61 Jul, [facility] [place] [facility] [address] [id number] [place] [address]- [address] Jun, [facility] [place] [facility] [address] [id number] [place] [address]- [address] Jun, [facility] [place] [facility] [address] [id number] [place] [address]- 1304 Jun, [facility] [place] [facility] [address] [id number] [place] [address]- 6408 Jun, [facility] [place] [facility] [address] [id number] [place] [address]- 0435 Jun, [facility] [place] [facility] [address] [id number] [place] [address]- 264[address] Jun, [facility] [place] [facility] [address] [id number] [place] [address]- 9330 Jun, [facility] [place] [facility] [address] [id number] [place] [address]- 268[address] Jun, [facility] [place] [facility] [address] [id number] [place] [address]- 6791 Jun, [facility] [place] [facility] [address] [id number] [place] [address]- [address] Jun, [facility] [place] [facility] [address] [id number] [place] [address]- 3708 Jun, [facility] [place] [facility] [address] [id number] [place] [address]- 7424 Jun, [facility] [place] [facility] [address] [id number] [place] [address]- 1666 May, [facility] [place] [facility] [address] [id number] [place] [address]116 May, [facility] [place] [facility] [address] [id number] [place] [address]- 1475 Apr, [facility] [place] [facility] [address] [id number] [place] [address]- 4501 Apr, [facility] [place] [facility] [address] [id number] [place] [address]- 4626 30 Apr, 2013 [facility] [place] [facility] [address] [id number] [place] [address]- [address] Apr, [facility] [place] [facility] [address] [id number] [place] [address]- 9947 Apr, [facility] [place] [facility] [address] [id number] [place] [address]- 6740 Apr, [facility] [place] [facility] [address] [id number] [place] [address]- 2631 Apr, [facility] [place] [facility] [address] [id number] [place] [address]- 6666 Apr, [facility] [place] [facility] [address] [id number] [place] [address]- 3943 Apr, [facility] [place] [facility] [address] [id number] [place] [address]- 7229 Apr, [facility] [place] [facility] [address] [id number] [place] [address]- 8481 Apr, [facility] [place] [facility] [address] [id number] [place] [address]- 0654 Mar, [facility] [place] [facility] [address] [id number] [place] [address]- 5779 Mar, [facility] [place] [facility] [address] [id number] [place] [address]- 4589 Mar, [facility] [place] [facility] [address] [id number] [place] [address] Mar, [facility] [place] [facility] [address] [id number], [place] [address] Feb, [facility] [place] [facility] [address] [id number], [place] [address] Feb, [facility] [place] [facility] [address] [id number] [place] [address] Feb, [facility] [place] [facility] [address] [id number] [place] [address]- 0423 Feb, [facility] [place] [facility] [address] [id number] [place] [address] 49[address] Feb, [facility] [place] [facility] [address] [id number] [place] [address] 9339 15 Feb, 2013 [facility] [address] [id number] [place] [address] 3120 Feb, [facility] [place] [facility] [address] [id number] [place] [address] 3359 Feb, [facility] [address] [id number] [place] [address] 1734 Feb, [facility] [place] [facility] [address] [id number] [place] [address] 7246 Feb, [facility] [address] [id number] [place] [address] 2142 Feb, [facility] [place] [facility] [address] [id number] [place] [address]- 3286 Jan, [facility] [place] [facility] [address] [id number] [place] [address]- 8039 Jan, [facility] [address] [id number] [place] [address]- 3765 Jan, [facility] [place] [facility] [address] [id number] [place] [address]- 9208 Jan, [facility] [address] [facility] [id number] [place] [address]- 9286 Jan, [facility] [place] [facility] [address] [id number] [place] [address]- 8461 Jan, [facility] [place] [facility] [address] [id number] [place] [address]- 3894 Jan, [facility] [place] [facility] [address] [id number] [place] [address]- 7583 Jan, [facility] [place] [facility] [address] [id number] [place] [address]- 7778 Dec, [facility] [place] [facility] [address] [id number] [place] [address]- 3922 Dec, [facility] [place] [facility] [address] [id number] [place] [address]- [address] 18 Dec, 2012 [facility] [place] [facility] [address] [id number] [place] [address]- 8916 17 Dec, 2012 [facility] [place] [facility] [address] [id number] [place] [address]- 0746 17 Dec, 2012 [facility] [place] [facility] [address] [id number] [place] [address]- 3924 16 Dec, 2012 [facility] [place] [facility] [address] [id number] [place] [address]- 8182 13 Dec, 2012 [facility] [place] [facility] [address] [id number] [place] [address]- 7293 11 Dec, 2012 [facility] [place] [facility] [address] [id number] [place] [address]- 4294 05 Dec, 2012 [facility] [place] [facility] [address] [id number] [place] [address]- 8896 04 Dec, 2012 [facility] [place] [facility] [address] [id number] [place] [address]- 5967 30 Nov, 2012 [facility] [place] [facility] [address] [id number] [place] [address]- 3550 29 Nov, 2012 [facility] [place] [facility] [address] [id number] [place] [address]- 3640 22 Nov, 2012 [facility] [place] [facility] [address] [id number], [place] [address] 16 Nov, 2012 [facility] [place] [facility] [address] [id number] [place] [address]- 5825 14 Nov, 2012 [facility] [place] [facility] [address] [id number] [place] [address]- 7630 Nov, [facility] [place] [facility] [address] [id number], [place] [address]- 1410 05 Nov, 2012 [facility] [place] [facility] [address] [id number] [place] [address]- 1138 29 Oct, 2012 [facility] [place] [facility] [address] [id number] [place] [address]- 7146 Oct, [facility] [place] [facility] [address] [id number] [place] [address]- 1867 24 Oct, 2012 [facility] [place] [facility] [address] [id number] [place] [address]- 0877 17 Oct, 2012 [facility] [place] [facility] [address] [id number] [place] [address]- 2278 15 Oct, 2012 [facility] [place] [facility] [address] [id number] [place] [address]- 7059 Oct, [facility] [place] [facility] [address] [id number] [place] [address]- 2566 28 Sep, 2012 [facility] [place] [facility] [address] [id number] [place] [address]- 9336 Sep, [facility] [place] [facility] [address] [id number] [place] [address]- 2263 27 Sep, 2012 [facility] [place] [facility] [address] [id number] [place] [address]- 9052 14 Sep, 2012 [facility] [place] [facility] [address] [id number] [place] [address]- 5629 13 Sep, 2012 [facility] [place] [facility] [address] [id number] [place] [address]- 0999 Sep, [facility] [place] [facility] [address] [id number] [place] [address]- 0804 07 Sep, 2012 [facility] [place] [facility] [address] [id number] [place] [address]- 7814 06 Sep, 2012 [facility] [place] [facility] [address] [id number] [place] [address]- 3792 05 Sep, 2012 [facility] [place] [facility] [address] [id number] [place] [address]- 7361 August, [facility] [place] [facility] [address] [id number] [place] [address]- 1536 August, [facility] [address] [id number] [place] [address] 9773 August, [facility] [address] [id number] [place] [address] 7186 August, [facility] [address] [id number] [place] [address] 6006 August, [facility] [address] [id number] [place] [address] 6776 August, [facility] [address] [id number] [place] [address] 1006 August, [facility] [address] [id number] [place] [address] 6246 August, [facility] [address] [id number] [place] [address]- 96[address] Jul, [facility] [address] [id number] [place] [address]- 0285 Jul, [facility] [address] [place] [id number] Jul [facility] [address] [id number] [place] [address]606 Jun, [facility] [address] [id number] [place] [address] 6056 Jun, [facility] [address] [id number] [place] [address] 2546 Jun, [facility] [address] [id number] [place] [address]- 4446 Jun, [facility] [address] [id number] [place] [address]- [address], [facility] [address] [id number] [place] [address]- 7866 Jun, [facility] [address] [id number] [place] [address]- 1544 May, [facility] [place] [facility] [address] [id number] [place] [address]- 3316 May, [facility] [place] [facility] [address] [id number] [place] [address] 2546 May, [facility] [place] [facility] [address] [id number] [place] [address]- 0566 May, [facility] [place] [facility] [address] [id number] [place] [address]- 2266 May, [facility] [place] [facility] [address] [id number] [place] [address]- 6016 Apr, [facility] [place] [facility] [address] [id number] [place] [address]- 2064 Apr, [facility] [address] [id number] [place] [address]- 3862 Apr, [facility] [place] [facility] [address] [id number] [place] [address]- 7480 Apr, [facility] [address] [id number] [place] [address]- 0653 Apr, [facility] [place] [facility] [address] [id number] [place] [address]- 0712 Apr, [facility] [place] [facility] [address] [id number], [place] [address]- 2206 Mar, [facility] [place] [facility] [address] [id number] [place] [address] 2546 Mar, [facility] [place] [facility] [address] [id number] [place] [address]- 2546 Mar, [facility] [place] [facility] [address] [id number] [place] [address] 2549 Mar, [facility] [place] [facility] [address] [id number], [place] [address]- 8579 19 Mar, 2012 [facility] [place] [facility] [address] [id number] [place] [address]- 5918 18 Mar, 2012 [facility] [place] [facility] [address] [id number] [place] [address]- 9171 18 Mar, 2012 [facility] [place] [facility] [address] [facility] [id number] [place] [address]- 6426 Mar, [facility] [place] [facility] [address] [id number] [place] [address]- 9433 10 Mar, 2012 [facility] [place] [facility] [address] [facility] [id number] [place] [address]- 5797 05 Mar, 2012 [facility] [place] [facility] [address] [id number] [place] [address]- 9879 Mar, [facility] [place] [facility] [id number] [place] [address]- 6286 Feb, [facility] [place] [facility] [address] [id number] [place] [address]- 6564 Feb, [facility] [place] [facility] [address] [id number] [place] [address]- 5028 Feb, [facility] [place] [facility] [address] [id number] [place] [address]- 7758 Feb, [facility] [place] [facility] [address] [facility] [id number] [place] [address]- 4311 Feb, [facility] [place] [facility] [address] [id number], [place] [address]- 2112 Feb, [facility] [place] [facility] [address] [id number] [place] [address]- 3437 16 Feb, 2012 [facility] [place] [facility] [address] [facility] [id number] [place] [address]- 0826 Feb, [facility] [place] [facility] [address] [id number] [place] [address]- 4972 Feb, [facility] [place] [facility] [address] [id number] [place] [address] 2545 Feb, [facility] [place] [facility] [address] [id number] [place] [address]- 8953 Feb, [facility] [place] [facility] [address] [id number] [place] [address]- 2856 Jan, [facility] [place] [facility] [address] [id number] [place] [address]- 5382 Jan, [facility] [place] [facility] [address] [id number] [place] [address]- 3371 Jan, [facility] [place] [facility] [address] [id number] [place] [address]- 3964 Jan, [facility] [place] [facility] [address] [id number] [place] [address]39 Jan, [facility] [place] [facility] [address] [id number] [place] [address]- 3603 Jan, [facility] [place] [facility] [address] [id number] [place] [address]- 5996 Jan, [facility] [place] [facility] [address] [id number] [place] [address]- 6193 24 Dec, 2011 [facility] [place] [facility] [address] [id number] [place] 9870 17 Dec, 2011 [facility] [place] [facility] [address] [id number] [place] [address]- 1148 13 Dec, 2011 [facility] [place] [facility] [address] [id number] [place] [address]- 1412 12 Dec, 2011 [facility] [place] [facility] [address] [id number] [place] [address]- 1396 Nov, [facility] [place] [facility] [address] [id number] [place] [address]- 2442 Nov, [facility] [place] [facility] [address] [id number] [place] [address]- 6626 Nov, [facility] [place] [facility] [address] [id number] [place] [address]- 1890 Nov, [facility] [place] [facility] [address] [id number] [place] [address]- 2306 Nov, [facility] [place] [facility] [address] [id number] [place] [address]- 8755 Nov, [facility] [place] [facility] [address] [id number] [place] [address]- 0682 Nov, [facility] [place] [facility] [address] [id number] [place] [address]- 1221 Nov, [facility] [place] [facility] [address] [id number] [place] [address]- 1639 Nov, [facility] [place] [facility] [address] [id number] [place] [address]- 4782 Nov, [facility] [place] [facility] [address] [id number] [place] [address]- 5150 Nov, [facility] [place] [facility] [address] [id number] [place] [address]- 1065 Nov, [facility] [place] [facility] [address] [id number] [place] [address]- 1600 Nov, [facility] [place] [facility] [address] [id number] [place] [address]- 1378 Oct, [facility] [place] [facility] [address] [id number] [place] [address]- 1958 Oct, [facility] [place] [facility] [address] [id number] [place] [address]- 0912 Oct, [facility] [place] [facility] [address] [id number] [place] [address]- 2034 Oct, [facility] [place] [facility] [address] [id number] [place] [address]- 1203 Oct, [facility] [place] [facility] [address] [id number] [place] [address]- 3700 Oct, [facility] [place] [facility] [address] [id number] [place] [address]- 6147 Oct, [facility] [place] [facility] [address] [id number] [place] [address]- 7476 Oct, [facility] [place] [facility] [address] [id number] [place] [address]- 1860 Oct, [facility] [place] [facility] [address] [id number] [place] [address]- 0908 Sep, [facility] [place] [facility] [address] [id number] [place] [address]- 6791 Sep, [facility] [place] [facility] [address] [id number] [place] [address]- 6051 Sep, [facility] [place] [facility] [address] [id number] [place] [address]- 5022 Sep, [facility] [place] [facility] [address] [id number] [place] [address]- 0046 Sep, [facility] [place] [facility] [address] [id number] [place] [address]- 3291 Sep, [facility] [place] [facility] [address] [id number] [place] [address]- 7528 Sep, [facility] [place] [facility] [address] [id number] [place] [address]- 5489 Sep, [facility] [place] [facility] [address] [id number] [place] [address]- 4430 August, [facility] [place] [facility] [address] [id number] [place] [address]- 0533 August, [facility] [place] [facility] [address] [id number] [place] [address]- 5619 August, [facility] [place] [facility] [address] [id number] [place] [address]85 August, [facility] [address] [id number] [address]- 3212 August, [facility] [address] [id number] 1305 August, [facility] [address] [id number] 9560 August, [facility] [id number], [place] [address]- 1543 August, [facility] [id number] 9234 August, [facility] [id number] [id number] 8045 August, [facility] [id number], [place] [address]- 5661 August, [facility] [id number], [place] [address]- 9592 August, [facility] [address] [id number], [place] [address]- 5889 Oct, IMMUNIZATIONS No Known Immunizations SOCIAL HISTORY [...]
--- OUTSIDE RECORDS SUMMARY | 2018-02-11 13:34 | XMS REPORT ---
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 [facility] [id number] [place] [address] 12395- 5225 Apr, [facility] [id number] [place] [address] 02538- 2054 Apr, [facility] [id number] [place] [address] 39397- 6556 Apr, Dysuria R30.0 and Well woman exam (no gynecological exam) Z00.00 [facility] [id number] [place] [address] 44634- 7150 Mar, [facility] [id number] [place] [address] 40833- 6813 Mar, [facility] [id number] [place] [address] [id number] Mar, Dental examination Z01.20 [facility] [id number] [place] [address] 68596- 3452 Mar, Chronic diarrhea K52.9 ; Intractable vomiting with nausea, vomiting of unspecified type R11.2 ; Cellulitis, unspecified cellulitis site L03.90 ; Type 2 diabetes mellitus with diabetic polyneuropathy E11.42 and Postinflammatory hyperpigmentation L81.0 [facility] [id number] [place] [address] 55851- 5812 Mar, Unspecified mood [affective] disorder F39 [facility] [id number] [place] [address] 42639- 2796 Mar, Unspecified mood [affective] disorder F39 [facility] [id number] [place] [address] 97477- 4447 Mar, [facility] [id number] [place] [address] 07330- 9328 Mar, [facility] [id number] [place] [address] 17318- 1939 Mar, [facility] [id number] [place] [address] 02128- 9609 Mar, [facility] [address] [place] [address]- 7306 Mar, [facility] [id number] [place] [address] 05596- 9130 Mar, [facility] [id number] [place] [address] 27426- 1014 Feb, Unspecified mood [affective] disorder F39 [facility] [id number] [place] [address] 71421- 8114 Feb, [facility] [id number] [place] [address] 03696- 7739 Feb, [facility] [id number] [place] [address] 48287- 1949 Jan, Unspecified mood [affective] disorder F39 [facility] [id number] [id number] [id number] Jan, Encounter for dental examination Z01.20 [facility] [id number] [place] [address] 73865- 9803 Jan, [facility] [id number] [place] [address] 83508- 5515 Jan, [facility] [id number] [place] [address] 07607- 5861 Jan, [facility] [id number] [place] [address] 73662- 5169 Jan, [facility] [id number] [place] [address] 09320- 2538 Jan, [facility] [id number] [place] [address] 14373- 9094 Jan, Abdominal abscess K65.1 and Dental caries K02.9 [facility] [id number] [place] [address] 16320- 1769 Jan, [facility] [id number] [place] [address] 93460- 8740 30 Dec, 2014 Diabetes with neurological manifestations, type II or unspecified type, not stated as uncontrolled 250.60 ; Essential hypertension, benign 401.1 ; Concussion 850.9 and Skin texture changes 782.8 [facility] [id number] [place] [address] 67795- 2538 25 Dec, 2014 [facility] [id number] [place] [address] 74360- 2189 24 Dec, 2014 [facility] [id number] [place] [address] 36049- 5651 22 Dec, 2014 [facility] [id number] [place] [address] 36254- 6973 21 Dec, 2014 [facility] [id number] [place] [address] 66025- 9025 17 Dec, 2014 Affective disorder 296.90 [facility] [id number] [place] [address] 38430- 6999 14 Dec, 2014 [facility] [id number] [place] [address] 73391- 2549 10 Dec, 2014 Affective disorder 296.90 [facility] [id number] [place] [address] 91350- 2353 04 Dec, 2014 [facility] [id number] [place] [address] 27747- 4749 Dec, [facility] [id number] [place] [address] 59509 2542 Dec, [facility] [id number] [place] [address] 00312- 2542 Dec, [facility] [id number] [place] [address] 91996- 8206 Nov, Affective disorder 296.90 [facility] [id number] [place] [address] 16228- 0253 Nov, [facility] [id number] [place] [address] 70483- 2548 Nov, Affective disorder 296.90 [facility] [id number], [place] [address] 2546 Nov, Diarrhea 787.91 [facility] [id number] [place] [address] 61249 2546 Nov, [facility] [id number] [place] [address] 03007 2546 Nov, Diarrhea 787.91 [facility] [id number] [place] [address] 02614- 2546 Nov, Diarrhea 787.91 and Hyperlipidemia 272.4 [facility] [id number] [place] [address] 52692 2546 Nov, Diarrhea 787.91 [facility] [id number] [place] [address] 78085 2546 Nov, Affective disorder 296.90 [facility] [id number] [place] [address] 87510 2546 Nov, Affective disorder 296.90 [facility] [id number] [place] [address] 12920- 3272 Nov, Affective disorder 296.90 [facility] [id number] [place] [address] 35252 2545 Nov, [facility] [id number] [place] [address] 37944 2546 Nov, [facility] [id number], [place] [address] 2546 Nov, [facility] [id number] [place] [address] 50908 2540 Nov, Episodic mood disorder 296.90 [facility] [id number], [place] [address] 2546 Nov, [facility] [id number] [place] [address] 73787- 4425 Nov, [facility] [address] [facility] [id number] [address]- 6506 Nov, [facility] [id number], [place] [address]- 2479 Nov, [facility] [id number], [place] [address]- 6745 Nov, [facility] [id number], [place] [address]- 8298 Nov, Lymphedema 457.1 ; Hyperlipidemia 272.4 ; Essential hypertension, benign 401.1 and Numbness of toes 782.0 [facility] [id number], [place] [address]- 6781 Nov, Episodic mood disorder 296.90 [facility] [id number], [place] [address]- 6411 Oct, [facility] [id number], [place] [address]- 0563 Oct, [facility] [id number], [place] [address]- 7013 Oct, [facility] [id number], [place] [address]- 1929 Oct, [facility] [id number], [place] [address]- 0693 Oct, [facility] [id number], [place] [address]- 5932 Oct, [facility] [id number] [address]- 1874 Oct, [facility] [id number] 6304 Oct, [facility] [id number] 6313 Oct, Episodic mood disorder 296.90 [facility] [id number], [place] [address]- 5582 30 Sep, 2014 [facility] [id number], [place] [address]- 8050 29 Sep, 2014 [facility] [id number], [place] [address]- 5718 26 Sep, 2014 [facility] [id number], [place] [address]- 8156 Sep, [facility] [id number], [place] [address]- 0492 Sep, [facility] [id number] [place] [address] 96260- 0988 Sep, Episodic mood disorder 296.90 [facility] [id number], [place] [address]- 4926 19 Sep, 2014 Unspecified episodic mood disorder 296.90 [facility] [id number], [place] [address]- 1102 18 Sep, 2014 [facility] [id number], [place] [address]- 0742 18 Sep, 2014 [facility] [id number], [place] [address]- 8891 16 Sep, 2014 Episodic mood disorder 296.90 [facility] [id number], [place] [address]- 2797 15 Sep, 2014 [facility] [id number], [place] [address]- 1147 15 Sep, 2014 [facility] [id number], [place] [address]- 5296 12 Sep, 2014 [facility] [id number], [place] [address]- 1908 09 Sep, 2014 Hematemesis 578.0 and Vomiting 787.03 [facility] [id number], [place] [address]- 4475 Sep, Episodic mood disorder 296.90 [facility] [id number], [place] [address]- 0695 Sep, [facility] [id number] 6760 Sep, [facility] [id number], [place] [address]- 6483 Sep, Diabetes mellitus without mention of complication, type II or unspecified type, not stated as uncontrolled 250.00 and Other chronic pain 338.29 [facility] [id number], [place] [address]- 9210 Sep, Episodic mood disorder 296.90 [facility] [id number], [place] [address] Sep, [facility] [id number] [address] Sep, Episodic mood disorder 296.90 [facility] [id number], [place] [address] Sep, [facility] [id number], [place] [address] August, [facility] [id number], [place] [address] August, [facility] [id number], [place] [address] August, Episodic mood disorder 296.90 [facility] [id number], [place] [address] August, [facility] [id number], [place] [address] August, Unspecified episodic mood disorder 296.90 [facility] [id number], [place] [address] August, Vomiting 787.03 [facility] [id number] [place] [address] August, [facility] [place] [facility] [address] [id number] [place] [address] August, [facility] [place] [facility] [address] [id number] [place] [address] August, [facility] [place] [facility] [address] [id number] [place] [address] August, [facility] [place] [facility] [address] [id number] [place] [address] August, [facility] [place] [facility] [address] [id number] [place] [address] Jul, [facility] [place] [facility] [address] [id number] [place] [address] Jul, [facility] [place] [facility] [address] [id number] [place] [address] Jul, [facility] [place] [facility] [address] [id number] [place] [address] Jun, [facility] [place] [facility] [address] [id number] [place] [address] Jun, [facility] [place] [facility] [address] [id number] [place] [address] Jun, [facility] [place] [facility] [address] [id number] [place] [address] Jun, [facility] [place] [facility] [address] [id number] [place] [address] Jun, [facility] [place] [facility] [address] [id number] [place] [address]- [address] Jun, [facility] [place] [facility] [address] [id number] [place] [address] Jun, [facility] [place] [facility] [address] [id number] [place] [address] Jun, [facility] [place] [facility] [address] [id number] [place] [address] Jun, [facility] [place] [facility] [address] [id number] [place] [address] Jun, [facility] [place] [facility] [address] [id number] [place] [address] Jun, [facility] [place] [facility] [address] [id number] [place] [address] Jun, [facility] [place] [facility] [address] [id number] [place] [address] Jun, [facility] [place] [facility] [address] [id number] [place] [address] Jun, [facility] [place] [facility] [address] [id number] [place] [address] Jun, [facility] [place] [facility] [address] [id number] [place] [address] Jun, [facility] [place] [facility] [address] [id number] [place] [address] Jun, [facility] [place] [facility] [address] [id number] [place] [address] Jun, [facility] [place] [facility] [address] [id number] [place] [address] Jun, [facility] [place] [facility] [address] [id number] [place] [address]- [address] Jun, [facility] [place] [facility] [address] [id number] [place] [address] Jun, [facility] [facility] [address] [id number] [place] [address] Jun, [facility] [place] [facility] [address] [id number] [place] [address] Jun, [facility] [place] [facility] [address] [id number] [place] [address] 9887 20 Jun, 2014 [facility] [place] [facility] [address] [id number] [place] [address]- 8976 20 Jun, 2014 [facility] [place] [facility] [address] [id number] [place] [address]- 8848 19 Jun, 2014 [facility] [place] [facility] [address] [id number] [place] [address]- 4327 19 Jun, 2014 [facility] [place] [facility] [address] [id number] [place] [address]- 8963 18 Jun, 2014 [facility] [place] [facility] [address] [id number] [place] [address]- 5373 18 Jun, 2014 [facility] [place] [facility] [address] [id number] [place] [address]- 9803 17 Jun, 2014 [facility] [place] [facility] [address] [id number] [place] [address]- 0627 17 Jun, 2014 [facility] [place] [facility] [address] [id number] [place] [address]- 1534 16 Jun, 2014 [facility] [place] [facility] [address] [id number] [place] [address]- 6725 16 Jun, 2014 [facility] [place] [facility] [address] [id number] [place] [address]- 4303 16 Jun, 2014 [facility] [place] [address] [id number] [place] [address]- 5167 16 Jun, 2014 [facility] [place] [facility] [address] [id number] [place] [address]- 9801 16 Jun, 2014 [facility] [place] [facility] [address] [id number] [place] [address]- 4861 16 Jun, 2014 [facility] [place] [address] [id number] [place] [address]- 7074 13 Jun, 2014 [facility] [place] [facility] [address] [id number] [place] [address]- 1064 13 Jun, 2014 [facility] [place] [facility] [address] [id number] [place] [address]- 3774 Jun, 2014 [facility] [place] [facility] [address] [id number] [place] [address]- 2333 Jun, 2014 [facility] [place] [address] [id number] [place] [address]- 2005 Jun, 2014 [facility] [place] [address] [id number] [place] [address]- 9869 Jun, 2014 [facility] [place] [facility] [address] [id number] [place] [address]- 8365 Jun, 2014 [facility] [place] [facility] [address] [id number] [place] [address]- 6594 Jun, 2014 [facility] [place] [facility] [address] [id number] [place] [address]- 5814 Jun, 2014 [facility] [place] [facility] [address] [id number] [place] [address]- 0082 Jun, 2014 [facility] [place] [facility] [address] [id number] [place] [address]- 8560 Jun, 2014 [facility] [address] [id number] [place] [address]- 5393 Jun, 2014 [facility] [address] [id number] [place] [address]- 3256 Jun, 2014 [facility] [address] [id number] [place] [address]- 8224 Jun, 2014 [facility] [place] [facility] [address] [id number] [place] [address]- 5568 Jun, 2014 [facility] [address] [id number] [place] [address]- 0579 Jun, 2014 [facility] [place] [address] [id number] [place] [address]- 8495 Jun, 2014 [facility] [address] [id number] [place] [address]- 2329 Jun, [facility] [address] [id number] [place] [address]- 2004 Jun, [facility] [address] [id number] [place] [address]- 3948 Jun, [facility] [address] [id number] [place] [address]- 9393 May, 2014 [facility] [address] [facility] [id number] [place] [address]- 3907 May, 2014 [facility] [address] [id number] [place] [address]- 9895 May, 2014 [facility] [address] [facility] [id number] [place] [address]- 0236 May, 2014 [facility] [address] [facility] [id number] [place] [address]- 3036 May, 2014 [facility] [address] [facility] [id number] [place] [address]- 1169 May, 2014 [facility] [address] [facility] [id number] [place] [address]- 3157 May, 2014 [facility] [address] [facility] [id number] [place] [address]- 0457 May, 2014 [facility] [address] [facility] [id number] [place] [address]- 9591 May, 2014 [facility] [address] [facility] [id number] [place] [address]- 0691 May, 2014 [facility] [address] [facility] [id number] [place] [address]- 3574 May, 2014 [facility] [address] [facility] [id number] [place] [address]- 0225 May, 2014 [facility] [address] [facility] [id number] [place] [address]- 9274 May, 2014 [facility] [address] [id number] [place] [address]- 5881 May, 2014 [facility] [address] [id number] [place] [address]- 7209 May, 2014 [facility] [address] [id number] [place] [address]- 6706 May, 2014 [facility] [address] [id number] [place] [address]- 0933 May, 2014 [facility] [address] [id number] [place] [address]- 2465 May, 2014 [facility] [address] [id number] [place] [address]- 8313 May, 2014 [facility] [address] [facility] [id number] [place] [address]- 9726 May, 2014 [facility] [address] [facility] [id number] [place] [address]- 8258 May, 2014 [facility] [address] [id number] [place] [address]- 1755 May, 2014 [facility] [address] [facility] [id number] [place] [address]- 9990 May, 2014 [facility] [address] [facility] [id number] [place] [address]- 8002 May, 2014 [facility] [address] [id number] [place] [address]- 2547 May, 2014 [facility] [address] [id number] [place] [address]- 4967 May, 2014 [facility] [address] [facility] [id number] [place] [address]- 5710 May, 2014 [facility] [address] [facility] [id number] [place] [address]- 1569 Apr, [facility] [address] [id number] [place] [address]- 4245 Apr, [facility] [address] [id number] [place] [address]- 4502 Apr, [facility] [address] [id number] [place] [address]- 2556 Apr, [facility] [address] [id number] [place] [address]- 3533 Apr, [facility] [address] [id number] [place] [address]- 5965 Apr, [facility] [address] [id number] [place] [address]- 9563 Apr, [facility] [address] [id number] [place] [address]- 1061 Apr, [facility] [address] [id number] [place] [address]- 8662 Apr, [facility] [address] [id number] [place] [address]- 8336 Apr, [facility] [address] [id number] [place] [address]- 9912 Apr, [facility] [address] [id number] [place] [address]- 8901 Apr, [facility] [address] [id number] [place] [address]- 1926 Apr, [facility] [address] [id number] [place] [address]- 8791 Apr, [facility] [address] [id number] [place] [address]- 9910 Apr, [facility] [address] [id number] [place] [address]- 6815 Apr, [facility] [address] [id number] [place] [address]12 Apr, [facility] [address] [id number] [place] [address]- 6101 Apr, [facility] [address] [id number] [place] [address]- 2946 Apr, [facility] [address] [id number] [place] [address]- 4059 Apr, [facility] [address] [id number] [place] [address]- 5172 Mar, [facility] [address] [id number] [place] [address]- 7928 Mar, [facility] [address] [id number] [place] [address]- 0909 Mar, [facility] [address] [id number] [place] [address]- 4451 Mar, [facility] [address] [id number] [place] [address]- 5115 Mar, [facility] [address] [id number] [place] [address]- 7896 Mar, [facility] [address] [id number] [place] [address]- 5107 Mar, [facility] [address] [id number] [place] [address]- 7482 Mar, [facility] [address] [id number] [place] [address]- 2297 15 Mar, 2014 [facility] [address] [id number] [place] [address]- 8221 15 Mar, 2014 [facility] [address] [id number] [place] [address]- 2033 15 Mar, 2014 [facility] [address] [id number] [place] [address]- 7137 15 Mar, 2014 [facility] [address] [id number], [place] [address]- 2470 Mar, [facility] [address] [id number] [place] [address]- 9389 Mar, [facility] [address] [id number] [place] [address]- 4798 Mar, [facility] [address] [facility] [id number] [place] [address]- 7762 Mar, [facility] [address] [id number] [place] [address]- 4899 Feb, [facility] [address] [id number] [place] [address]- 2382 Feb, [facility] [address] [id number] [place] [address]- 1483 Feb, [facility] [address] [facility] [id number] [place] [address]- 3795 Feb, [facility] [address] [id number] [place] [address]- 8818 Feb, [facility] [address] [facility] [id number] [place] [address]- 0326 Feb, [facility] [address] [facility] [id number] [place] [address]- 0236 Feb, [facility] [address] [id number] [place] [address]- 7136 Feb, [facility] [address] [id number], [place] [address]- 6497 Feb, [facility] [address] [id number], [place] [address]- 1483 Feb, [facility] [address] [facility] [id number] [place] [address]- 1714 Feb, [facility] [address] [facility] [id number], [place] [address]- 9316 Feb, [facility] [address] [id number] [place] [address]- 4510 17 Feb, 2014 [facility] [address] [id number] [place] [address]- 5314 Feb, [facility] [address] [id number] [place] [address]- 4611 Feb, [facility] [address] [id number] [place] [address]- 1419 Feb, [facility] [address] [id number] [place] [address]- 9904 Feb, [facility] [address] [id number] [place] [address]- 2205 Feb, [facility] [address] [id number] [place] [address]- 5682 Feb, [facility] [address] [id number] [place] [address]- 7006 Feb, [facility] [address] [id number] [place] [address]- 0912 Feb, [facility] [address] [id number] [place] [address]- 8062 Jan, [facility] [address] [id number] [place] [address]- 6927 Jan, [facility] [address] [id number] [place] [address]- 9824 Jan, [facility] [address] [id number] [place] [address]- 6262 Jan, [facility] [address] [id number] [place] [address]- 0178 Jan, [facility] [address] [id number] [place] [address]- 8935 Jan, [facility] [address] [id number] [place] [address]- 3826 21 Jan, 2014 [facility] [address] [id number] [place] [address]- 9357 21 Jan, 2014 [facility] [address] [id number] [place] [address]- 2298 20 Jan, 2014 [facility] [address] [id number] [place] [address]- 4125 20 Jan, 2014 [facility] [address] [id number] [place] [address]- 3324 17 Jan, 2014 [facility] [address] [id number] [place] [address]- 9384 17 Jan, 2014 [facility] [address] [id number] [place] [address]- 4426 17 Jan, 2013 [facility] [address] [id number] [place] [address]- 8179 17 Jan, 2013 [facility] [place] [facility] [address] [id number] [place] [address]- 8553 15 Jan, 2014 [facility] [address] [id number] [place] [address]- 7887 15 Jan, 2014 [facility] [place] [address] [id number] [place] [address]- 2086 14 Jan, 2014 [facility] [address] [id number], [place] [address]- 4004 14 Jan, 2014 [facility] [address] [id number], [place] [address]- 6161 13 Jan, 2013 [facility] [address] [id number] [place] [address]- 3347 13 Jan, 2014 [facility] [address] [id number], [place] [address]- 5055 13 Jan, 2013 [facility] [address] [id number], [place] [address]- 0189 13 Jan, 2013 [facility] [place] [address] [id number] [place] [address]- 0197 10 Jan, 2013 [facility] [place] [facility] [address] [id number] [place] [address]- 7734 02 Jan, 2013 [facility] [place] [facility] [address] [id number] [place] [address]- 5006 02 Jan, 2014 [facility] [place] [facility] [address] [id number] [place] [address]- 0235 25 Dec, 2013 [facility] [place] [facility] [address] [id number] [place] [address] 2545 25 Dec, 2013 [facility] [place] [facility] [address] [id number] [place] [address]- 5841 23 Dec, 2013 [facility] [place] [facility] [address] [id number] [place] [address]- 9210 23 Dec, 2013 [facility] [place] [facility] [address] [id number] [place] [address]- 6978 19 Dec, 2013 [facility] [place] [facility] [address] [id number] [place] [address]- 2541 19 Dec, 2013 [facility] [place] [facility] [address] [id number] [place] [address] 2545 17 Dec, 2013 [facility] [place] [facility] [address] [id number] [place] [address]- 2547 17 Sep, 2013 [facility] [place] [facility] [address] [id number] [place] [address] 2543 09 Sep, 2013 [facility] [place] [facility] [address] [id number] [place] [address]- 2547 09 Sep, 2013 [facility] [place] [facility] [address] [id number] [place] [address] 2540 08 Sep, 2013 [facility] [place] [facility] [address] [id number] [place] [address]- 2548 08 Sep, 2013 [facility] [place] [facility] [address] [id number] [place] [address]- 2544 04 Sep, 2013 [facility] [place] [facility] [address] [id number] [place] [address]- 3118 Dec, 2013 [facility] [place] [facility] [address] [id number] [place] [address]- 3810 Dec, [facility] [place] [facility] [address] [id number] [place] [address]- 3470 Dec, [facility] [place] [facility] [address] [id number] [place] [address]- 7502 Dec, [facility] [place] [facility] [address] [id number] [place] [address]- 9434 Dec, [facility] [place] [facility] [address] [id number] [place] [address]- 3696 Nov, [facility] [place] [facility] [address] [id number] [place] [address]- 8354 Nov, [facility] [place] [facility] [address] [id number] [place] [address]- 0152 Nov, [facility] [place] [facility] [address] [id number] [place] [address]- 4068 Nov, [facility] [place] [facility] [address] [id number] [place] [address]- 0788 Nov, [facility] [place] [facility] [address] [id number] [place] [address]- 8508 Nov, [facility] [place] [facility] [address] [id number] [place] [address]- 9454 Nov, [facility] [place] [facility] [address] [id number] [place] [address]- 3474 Nov, [facility] [place] [facility] [address] [id number] [place] [address]- 3985 Nov, [facility] [place] [facility] [address] [id number] [place] [address]- 2648 Nov, [facility] [place] [facility] [address] [id number] [place] [address]- 0119 Nov, [facility] [place] [facility] [address] [id number] [place] [address]- 5851 Nov, [facility] [place] [facility] [address] [id number] [place] [address]- 7191 Oct, [facility] [place] [facility] [address] [id number] [place] [address]- 0876 Oct, [facility] [place] [facility] [address] [id number] [place] [address]- 1205 Oct, [facility] [place] [facility] [address] [id number] [place] [address]- 1025 Oct, [facility] [place] [facility] [address] [id number] [place] [address]- 2484 Oct, [facility] [place] [facility] [address] [id number] [place] [address]- 0875 Oct, [facility] [place] [facility] [address] [id number] [place] [address]- 5186 Oct, [facility] [place] [facility] [address] [id number] [place] [address]- 1591 Oct, [facility] [place] [facility] [address] [id number] [place] [address]- 8388 Oct, [facility] [place] [facility] [address] [id number] [place] [address]- 5179 Oct, [facility] [place] [facility] [address] [id number] [place] [address]- 9214 Oct, [facility] [place] [facility] [address] [id number] [place] [address]- 4573 Oct, [facility] [place] [facility] [address] [id number] [place] [address]- 5359 Oct, [facility] [place] [facility] [address] [id number] [place] [address] Oct, [facility] [place] [facility] [address] [id number] [place] [address]- [address] 13 Oct, 2013 [facility] [place] [facility] [address] [id number] [place] [address] 13 Oct, 2013 [facility] [place] [facility] [address] [id number] [place] [address] 2013 [facility] [place] [facility] [address] [id number] [place] [address] 27 Sep, 2013 [facility] [place] [facility] [address] [id number] [place] [address] 27 Sep, 2013 [facility] [place] [facility] [address] [id number] [place] [address] Sep, [facility] [place] [facility] [address] [id number] [place] [address] 20 Sep, 2013 [facility] [place] [facility] [address] [id number] [place] [address]- [address] 18 Sep, 2013 [facility] [place] [facility] [address] [id number] [place] [address] 295[address] 18 Sep, 2013 [facility] [place] [facility] [address] [id number] [place] [address]- 3835 17 Sep, 2013 [facility] [place] [facility] [address] [id number] [place] [address]- 6740 17 Sep, 2013 [facility] [place] [facility] [address] [id number] [place] [address]- 3881 11 Sep, 2013 [facility] [place] [facility] [address] [id number] [place] [address]- 6486 11 Sep, 2013 [facility] [place] [facility] [address] [id number] [place] [address]- [address] 11 Sep, 2013 [facility] [place] [facility] [address] [id number] [place] [address]- 9116 11 Sep, 2013 [facility] [place] [facility] [address] [id number] [place] [address]- [address]186 Sep, [facility] [place] [facility] [address] [id number] [place] [address]- [address] Sep, [facility] [place] [facility] [address] [id number] [place] [address] Sep, [facility] [place] [facility] [address] [id number] [place] [address]- 1397 Sep, [facility] [place] [facility] [address] [id number] [place] [address]- 78[address] Sep, [facility] [place] [facility] [address] [id number] [place] [address]- 6322 Sep, [facility] [place] [facility] [address] [id number] [place] [address]- 1466 Sep, [facility] [place] [facility] [address] [id number] [place] [address]- [address] Sep, [facility] [place] [facility] [address] [id number] [place] [address]- 3210 Sep, [facility] [place] [facility] [address] [id number] [place] [address]- 6096 Sep, [facility] [place] [facility] [address] [id number] [place] [address]- 117[address] August, [facility] [place] [facility] [address] [id number] [place] [address]- [address]56 August, [facility] [place] [facility] [address] [id number], [place] [address] August, [facility] [place] [facility] [address] [id number] [place] [address]- 37[address] August, [facility] [place] [facility] [address] [id number] [place] [address]- [address]998 August, [facility] [place] [facility] [address] [id number] [place] [address]- 7281 August, [facility] [place] [facility] [address] [id number], [place] [address] August, [facility] [address] [id number] [place] [address] 3036 August, [facility] [place] [facility] [address] [id number] [place] [address]- 0393 August, [facility] [place] [facility] [address] [id number] [place] [address]- 4865 August, [facility] [place] [facility] [address] [id number] [place] [address]- 0716 August, [facility] [place] [facility] [address] [id number] [place] [address] Jul, [facility] [place] [facility] [address] [id number] [place] [address]- 286[address] Jul, [facility] [address] [id number] [place] [address]- 0010 Jul, [facility] [place] [facility] [address] [id number] [place] [address]- [address]398 Jul, [facility] [place] [facility] [address] [id number] [place] [address]- 3216 Jul, [facility] [place] [facility] [address] [id number] [place] [address]- 2470 Jul, [facility] [place] [facility] [address] [id number] [place] [address]- 1192 Jul, [facility] [place] [facility] [address] [id number] [place] [address]- 9865 Jul, [facility] [place] [facility] [address] [id number] [place] [address]- 0803 Jul, [facility] [place] [facility] [address] [id number] [place] [address]- 9791 Jul, [facility] [place] [facility] [address] [id number] [place] [address]- 6583 Jul, [facility] [place] [facility] [address] [id number] [place] [address]- 0145 14 Jul, 2013 [facility] [place] [facility] [address] [id number] [place] [address]- 1310 Jul, [facility] [place] [facility] [address] [id number] [place] [address]- 8046 Jul, [facility] [place] [facility] [address] [id number] [place] [address]- 8017 Jul, [facility] [place] [facility] [address] [id number] [place] [address]- 0206 Jul, [facility] [place] [facility] [address] [id number] [place] [address]- 8723 Jul, [facility] [place] [facility] [address] [id number] [place] [address]- 9049 Jul, [facility] [place] [facility] [address] [id number] [place] [address]- 1488 Jul, [facility] [place] [facility] [address] [id number] [place] [address]- 0051 Jul, [facility] [place] [facility] [address] [id number] [place] [address]- 1717 Jul, [facility] [place] [facility] [address] [id number] [place] [address]- 3204 Jul, [facility] [place] [facility] [address] [id number] [place] [address]- 2319 Jul, [facility] [place] [facility] [address] [id number] [place] [address]- 3364 Jun, [facility] [place] [facility] [address] [id number] [place] [address]- 7348 Jun, [facility] [place] [facility] [address] [id number] [place] [address]- 7533 Jun, [facility] [place] [facility] [address] [id number] [place] [address]- 2903 Jun, [facility] [place] [facility] [address] [id number] [place] [address]- 9859 Jun, [facility] [place] [facility] [address] [id number] [place] [address]- 1048 Jun, [facility] [place] [facility] [address] [id number] [place] [address]- 8187 Jun, [facility] [place] [facility] [address] [id number] [place] [address]- 8331 Jun, [facility] [place] [facility] [address] [id number] [place] [address]- 9968 Jun, [facility] [place] [facility] [address] [id number] [place] [address]- 7275 Jun, [facility] [place] [facility] [address] [id number] [place] [address]- 5141 Jun, [facility] [place] [facility] [address] [id number] [place] [address]- 1480 Jun, [facility] [place] [facility] [address] [id number] [place] [address]- 7116 May, [facility] [place] [facility] [address] [id number] [place] [address] May, [facility] [place] [facility] [address] [id number] [place] [address] Apr, [facility] [place] [facility] [address] [id number] [place] [address] Apr, [facility] [place] [facility] [address] [id number] [place] [address] 7948 Apr, [facility] [place] [facility] [address] [id number] [place] [address]- 4647 Apr, [facility] [place] [facility] [address] [id number] [place] [address]- 5473 Apr, [facility] [place] [facility] [address] [id number] [place] [address] 7797 Apr, [facility] [address] [id number] [place] [address]- 7118 Apr, [facility] [address] [id number] [place] [address]- 9843 Apr, [facility] [address] [id number] [place] [address]- 8439 Apr, [facility] [address] [id number] [place] [address]- 8075 Apr, [facility] [address] [id number] [place] [address]- 3577 Apr, [facility] [address] [id number] [place] [address]- 9889 16 Mar, 2013 [facility] [address] [id number] [place] [address]- 6697 Mar, [facility] [address] [id number] [place] [address]- 0943 16 Mar, 2013 [facility] [address] [id number] [place] [address] 6426 Mar, [facility] [address] [id number] [place] [address]- 7982 Feb, [facility] [address] [id number] [place] [address]- 4875 Feb, [facility] [address] [id number] [place] [address]- 1122 Feb, [facility] [place] [facility] [address] [id number] [place] [address]- 9745 Feb, [facility] [place] [facility] [address] [id number] [place] [address]- 1192 22 Feb, 2013 [facility] [address] [id number] [place] [address]- 9726 15 Feb, 2013 [facility] [place] [facility] [address] [id number] [place] [address]- 4154 15 Feb, 2013 [facility] [place] [facility] [address] [id number] [place] [address]- 1851 Feb, [facility] [place] [facility] [address] [id number] [place] [address]- 5496 Feb, [facility] [place] [facility] [address] [id number] [place] [address]- 9314 Feb, [facility] [place] [facility] [address] [id number] [place] [address]- 0074 Feb, [facility] [place] [facility] [address] [id number] [place] [address]- 6135 Jan, [facility] [place] [facility] [address] [id number] [place] [address]- 4099 Jan, [facility] [place] [facility] [address] [id number], [place] [address]- [address] Jan, [facility] [place] [facility] [address] [id number] [place] [address]- 1612 Jan, [facility] [place] [facility] [address] [id number], [place] [address]- 9[address] Jan, [facility] [place] [facility] [address] [id number], [place] [address]- 4780 Jan, [facility] [place] [facility] [address] [id number], [place] [address]- 0325 Jan, [facility] [place] [facility] [address] [id number], [place] [address]- 8996 Jan, [facility] [place] [facility] [address] [id number], [place] [address]- 2901 Dec, [facility] [place] [facility] [address] [id number], [place] [address]- 4439 Dec, [facility] [place] [facility] [address] [id number], [place] [address]- 4844 18 Dec, 2012 [facility] [place] [facility] [address] [id number] [place] [address] 2546 17 Dec, 2012 [facility] [place] [facility] [address] [id number] [place] [address]- 2716 17 Dec, 2012 [facility] [place] [facility] [address] [id number] [place] [address]- 7413 16 Dec, 2012 [facility] [place] [facility] [address] [id number] [place] [address]- 1186 13 Dec, 2012 [facility] [place] [facility] [address] [id number] [place] [address]- 7264 11 Dec, 2012 [facility] [place] [facility] [address] [id number] [place] [address]- 3905 05 Dec, 2012 [facility] [place] [facility] [address] [id number] [place] [address]- 4826 04 Dec, 2012 [facility] [place] [facility] [address] [id number] [place] [address]- 1485 30 Nov, 2012 [facility] [place] [facility] [address] [id number] [place] [address]- 4572 29 Nov, 2012 [facility] [place] [facility] [address] [id number] [place] [address]- 8002 Nov, [facility] [place] [facility] [address] [id number] [place] [address]- 6695 Nov, [facility] [place] [facility] [address] [id number] [place] [address]- 8017 14 Nov, 2012 [facility] [place] [facility] [address] [id number] [place] [address]- 2530 Nov, [facility] [place] [facility] [address] [id number] [place] [address]- 1384 05 Nov, 2012 [facility] [place] [facility] [address] [id number] [place] [address]- 0197 Oct, [facility] [place] [facility] [address] [id number] [place] [address]- 8043 24 Oct, 2012 [facility] [address] [id number] [place] [address]- 2091 24 Oct, 2012 [facility] [place] [facility] [address] [id number] [place] [address]- 1186 17 Oct, 2012 [facility] [place] [facility] [address] [id number] [place] [address]- 1584 15 Oct, 2012 [facility] [place] [facility] [address] [id number] [place] [address]- 2972 Oct, [facility] [place] [facility] [address] [id number] [place] [address]- 4055 Sep, [facility] [place] [facility] [address] [id number] [place] [address]- 0768 Sep, [facility] [place] [facility] [address] [id number] [place] [address]- 3477 Sep, [facility] [place] [facility] [address] [id number] [place] [address]- 2376 14 Sep, 2012 [facility] [place] [facility] [address] [id number] [place] [address]- 7685 Sep, [facility] [place] [facility] [address] [id number] [place] [address]- 8023 Sep, [facility] [place] [facility] [address] [id number] [place] [address]- 8572 Sep, [facility] [place] [facility] [address] [id number] [place] [address]- 4979 Sep, [facility] [place] [facility] [address] [id number] [place] [address]- 3675 Sep, [facility] [place] [facility] [address] [id number] [place] [address]- 2639 August, [facility] [place] [facility] [address] [id number] [place] [address]- 8061 August, [facility] [address] [id number] [place] [address]- 4391 August, [facility] [address] [id number] [place] [address]- 3141 August, [facility] [address] [id number] [place] [address]- 4891 August, [facility] [address] [id number] [place] [address]- 7799 August, [facility] [address] [id number] [place] [address]- 9468 August, [facility] [address] [id number] [place] [address]- 9672 August, [facility] [address] [id number] [place] [address]- 0254 Jul, [facility] [address] [id number] [place] [address]- 2449 Jul, [facility] [address] [place] [id number] Jul [facility] [address] [id number] [place] [address]- 5784 Jun, [facility] [address] [id number] [place] [address]- 6744 Jun, [facility] [address] [id number] [place] [address]- 1457 Jun, [facility] [address] [id number] [place] [address]- 6781 Jun, [facility] [address] [id number] [place] [address]- 0056 Jun, [facility] [address] [id number] [place] [address]- 3827 Jun, [facility] [address] [id number] [place] [address]- 7065 May, [facility] [address] [id number] [place] [address]- 2838 May, [facility] [address] [id number] [place] [address]- 2206 May, [facility] [address] [id number] [place] [address]- 1586 May, [facility] [address] [id number] [place] [address]- 5343 May, [facility] [address] [id number] [place] [address]- 1336 Apr, [facility] [address] [id number] [place] [address]- 4796 Apr, [facility] [address] [id number] [place] [address]- 1255 Apr, [facility] [address] [id number] [place] [address]- 7810 Apr, [facility] [address] [facility] [id number] [place] [address]- 6389 Apr, [facility] [address] [facility] [id number] [place] [address]- 6719 Apr, [facility] [address] [id number], [place] [address]- 5690 Mar, [facility] [address] [id number] [place] [address]- 2374 Mar, [facility] [address] [id number] [place] [address]- 6800 Mar, [facility] [address] [id number] [place] [address]- 4393 Mar, [facility] [address] [facility] [id number] [place] [address]- 0348 Mar, [facility] [place] [facility] [address] [id number] [place] 2863 18 Mar, 2012 [facility] [place] [facility] [address] [id number] [place] [address]- 6550 18 Mar, 2012 [facility] [place] [facility] [address] [id number] [place] 2506 Mar, [facility] [place] [facility] [address] [id number] [place] [address]- 5856 Mar, [facility] [place] [facility] [address] [id number] [place] [address]- 2258 Mar, [facility] [place] [facility] [address] [id number] [place] [address]- 3207 Mar, [facility] [place] [facility] [address] [id number] [place] [address]- 9354 Feb, [facility] [place] [facility] [address] [id number] [place] [address]- 3385 Feb, [facility] [place] [facility] [address] [id number] [place] [address]- 0999 Feb, [facility] [place] [facility] [address] [id number] [place] [address]- 4395 Feb, [facility] [place] [facility] [address] [id number] [place] [address]- 3883 Feb, [facility] [place] [facility] [address] [id number] [place] [address]- 5808 Feb, [facility] [place] [facility] [address] [id number] [place] [address]- 2732 16 Feb, 2012 [facility] [place] [facility] [address] [id number] [place] [address]- 8216 Feb, [facility] [place] [facility] [address] [id number] [place] [address]- 5486 Feb, [facility] [place] [facility] [address] [id number] [place] [address]- 1999 Feb, [facility] [place] [facility] [address] [id number] [place] [address]- 1245 Feb, [facility] [place] [facility] [address] [id number] [place] [address]- 1118 Jan, [facility] [place] [facility] [address] [id number] [place] [address]- 2446 Jan, [facility] [place] [facility] [address] [id number] [place] [address]- 9342 Jan, [facility] [place] [facility] [address] [id number] [place] [address]- 1227 Jan, [facility] [place] [facility] [address] [id number] [place] [address]- 0778 Jan, [facility] [place] [facility] [address] [id number] [place] [address]- 6318 Jan, [facility] [place] [facility] [address] [id number] [place] [address]- 1411 Jan, [facility] [place] [facility] [address] [id number] [place] [address]- 7059 24 Dec, 2011 [facility] [place] [facility] [address] [id number] [place] [address]- 8165 17 Dec, 2011 [facility] [place] [facility] [address] [id number], [place] [address]- 1454 13 Dec, 2011 [facility] [place] [facility] [address] [id number], [place] [address]- 5537 12 Dec, 2011 [facility] [place] [facility] [address] [id number] [place] [address]- 0439 Nov, [facility] [place] [facility] [address] [id number], [place] [address]- 8160 Nov, [facility] [place] [facility] [address] [id number] [place] [address]- 8823 Nov, [facility] [place] [facility] [address] [id number] [place] [address]- 9072 15 Nov, 2011 [facility] [place] [facility] [address] [id number] [place] [address]- 2550 Nov, [facility] [place] [facility] [address] [id number] [place] [address]- 2896 Nov, [facility] [place] [facility] [address] [id number] [place] [address]- 9153 Nov, [facility] [place] [facility] [address] [id number] [place] [address]- 3581 Nov, [facility] [place] [facility] [address] [id number] [place] [address]- 5448 Nov, [facility] [place] [facility] [address] [id number] [place] [address]- 2791 Nov, [facility] [place] [facility] [address] [id number] [place] [address]- 5431 Nov, [facility] [place] [facility] [address] [id number] [place] [address]- 7808 Nov, [facility] [place] [facility] [address] [id number] [place] [address]- 4641 Nov, [facility] [place] [facility] [address] [id number] [place] [address]- 9508 Oct, [facility] [place] [facility] [address] [id number] [place] [address]- 9879 Oct, [facility] [place] [facility] [address] [id number] [place] [address]- 0763 Oct, [facility] [place] [facility] [address] [id number] [place] [address]- 7078 Oct, [facility] [place] [facility] [address] [id number] [place] [address]- 8843 Oct, [facility] [place] [facility] [address] [id number] [place] [address]- 9722 Oct, [facility] [place] [facility] [address] [id number] [place] [address]- 7376 Oct, [facility] [place] [facility] [address] [id number] [place] [address]- 7865 Oct, [facility] [place] [facility] [address] [id number] [place] [address]- 6815 Oct, [facility] [place] [facility] [address] [id number] [place] [address]- 4792 Sep, [facility] [place] [facility] [address] [id number] [place] [address]- 8042 Sep, [facility] [place] [facility] [address] [id number] [place] [address]- 6362 Sep, [facility] [place] [facility] [address] [id number] [place] [address]- 6893 Sep, [facility] [place] [facility] [address] [id number] [place] [address]- 5647 Sep, [facility] [place] [facility] [address] [id number] [place] [address]- 5506 Sep, [facility] [place] [facility] [address] [id number] [place] [address]- 8808 Sep, [facility] [place] [facility] [address] [id number] [place] [address]- 5348 Sep, [facility] [place] [facility] [address] [id number] [place] [address]- 6975 August, [facility] [place] [facility] [address] [id number] [place] [address]- 6590 August, [facility] [place] [facility] [address] [id number] [place] [address]- 4047 August, [facility] [place] [facility] [address] [id number] [place] [address]- 0970 August, [facility] [place] [facility] [address] [id number], [place] [address]- 3456 August, [facility] [address] [facility] [id number], [place] [address]- 2035 August, [facility] [address] [id number], [place] [address]- 1296 August, [facility] [address] [id number] 3913 August, [facility] [id number], [place] [address]- 1468 August, [facility] [address] [id number] 0431 August, [facility] [id number], [place] [address]- 6074 August, [facility] [address] [id number], [place] [address]- 8005 August, [facility] [address] [id number], [place] [address]- 9064 Oct, IMMUNIZATIONS No Known Immunizations SOCIAL HISTORY [...] Hospitalization History suicidal ideations-[place] 12/28 Hospitalization History hypoxia--[facility] 02/13/2016 Hospitalization History shortness of breath at june 2016 Hospitalization History Shortness of breath at august 2016 Hospitalization History SOB, chest pain at 12/2016
--- OUTSIDE RECORDS SUMMARY | 2018-02-11 13:36 | XMS REPORT ---
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 Apr, [facility] [id number] [place] [address] 86552- 1784 Apr, [facility] [address] 93558- 8929 Apr, Dysuria R30.0 and Well woman exam (no gynecological exam) Z00.00 [facility] [id number] [place] [address] 11860- 3618 Mar, [facility] [address], [place] [address]- 8146 Mar, [facility] [address] [address] Mar, Dental examination Z01.20 [facility] [id number] [place] [address] 34044- 6116 Mar, Chronic diarrhea K52.9 ; Intractable vomiting with nausea, vomiting of unspecified type R11.2 ; Cellulitis, unspecified cellulitis site L03.90 ; Type 2 diabetes mellitus with diabetic polyneuropathy E11.42 and Postinflammatory hyperpigmentation L81.0 [facility] [id number] [place] [address] 72358- 8910 Mar, Unspecified mood [affective] disorder F39 [facility] [id number] [place] [address] 01792- 0710 Mar, Unspecified mood [affective] disorder F39 [facility] [id number] [place] [address] 55821- 7214 Mar, [facility] [id number] [place] [address] 68976- 0866 Mar, [facility] [id number] [place] [address] 85068- 1392 Mar, [facility] [id number] [place] [address] 52371- 2015 Mar, [facility] [id number] [place] [address] 05973- 4228 Mar, [facility] [id number] [place] [address] 35957- 0269 Mar, [facility] [address], [place] [address]- 3858 Feb, Unspecified mood [affective] disorder F39 [facility] [id number] [place] [address] 33465- 4198 Feb, [facility] [id number] [place] [address] 45687- 2051 Feb, [facility] [id number] [place] [address] 86671- 2210 Jan, Unspecified mood [affective] disorder [address] [place] [address] [id number] [id number] Jan, Encounter for dental examination Z01.20 [facility] [id number] [place] [address] 62898- 4332 Jan, [facility] [id number] [place] [address] 22090- 0192 Jan, [facility] [id number] [place] [address] 60905- 3748 Jan, [facility] [id number] [place] [address] 36996- 1167 Jan, [facility] [id number] [place] [address] 99755- 6279 Jan, [facility] [id number] [place] [address] 64856- 6310 Jan, Abdominal abscess K65.1 and Dental caries K02.9 [facility] [id number] [place] [address] 70301- 5478 Jan, [facility] [id number] [place] [address] 91821- 4297 Dec, Diabetes with neurological manifestations, type II or unspecified type, not stated as uncontrolled 250.60 ; Essential hypertension, benign 401.1 ; Concussion 850.9 and Skin texture changes 782.8 [facility] [id number] [place] [address] 83484- 1657 Dec, [facility] [id number] [place] [address] 06043- 3055 Dec, [facility] [address] [facility] [id number] [address] 2546 22 Dec, 2014 [facility] [address], [place] [address] 2546 21 Dec, 2014 [facility] [address], [place] [address] 2546 17 Dec, 2014 Affective disorder 296.90 [facility] [id number] [place] [address] 68668 2546 14 Sep, 2014 [facility] [address], [place] [address] 2546 10 Dec, 2014 Affective disorder 296.90 [facility] [address], [place] [address] 2546 04 Dec, 2014 [facility] [address], [place] [address] 2546 04 Dec, 2014 [facility] [address], [place] [address] 2546 04 Dec, 2014 [facility] [address], [place] [address] 2546 Dec, 2014 [facility] [address], [place] [address] 2546 Nov, Affective disorder 296.90 [facility] [address], [place] [address] 2546 Nov, 2014 [facility] [address], [place] [address] 2546 Nov, Affective disorder 296.90 [facility] [address], [place] [address] 2546 Nov, Diarrhea 787.91 [facility] [address], [place] [address] 2546 Nov, [facility] [address], [place] [address]- 2546 Nov, Diarrhea 787.91 [facility] [address], [place] [address] 2546 Nov, Diarrhea 787.91 and Hyperlipidemia 272.4 [facility] [id number] [place] [address] 04047 2546 Nov, Diarrhea 787.91 [facility] [id number] [place] [address] 71710 2546 Nov, Affective disorder 296.90 [facility] [id number] [place] [address] 94536 2546 Nov, Affective disorder 296.90 [facility] [id number] [place] [address] 59049 2546 Nov, Affective disorder 296.90 [facility] [id number] [place] [address] 07586- 4957 Nov, [facility] [id number] [place] [address] 61063 2543 Nov, [facility] [id number] [place] [address] 98633- 0451 Nov, [facility] [id number] [place] [address] 93992- 6436 Nov, Episodic mood disorder 296.90 [facility] [address], [place] [address] 2541 Nov, [facility] [address], [place] [address] 2542 Nov, [facility] [id number] [place] [address] 05577 2542 Nov, [facility] [id number] [place] [address] 95191 254 Nov, [facility] [address], [place] [address]- 2543 Nov, [facility] [address], [place] [address]- 2469 Nov, Lymphedema 457.1 ; Hyperlipidemia 272.4 ; Essential hypertension, benign 401.1 and Numbness of toes 782.0 [facility] [id number] [place] [address]- 9183 Nov, Episodic mood disorder 296.90 [facility] [id number] [address]- 3524 Oct, [facility] [address], [place] [address]- 8109 Oct, [facility] [address], [place] [address]- 0109 Oct, [facility] [address], [place] [address]- 3824 Oct, [facility] [address], [place] [address]- 8531 Oct, [facility] [address], [place] [address]- 3924 Oct, [facility] [address], [place] [address]- 4609 Oct, [facility] [address], [place] [address]- 6081 Oct, [facility] [address] 0540 Oct, Episodic mood disorder 296.90 [facility] [address], [place] [address]- 4490 Sep, [facility] [address] 5933 Sep, [facility] [id number]- 7255 Sep, [facility] [address], [place] [address]- 5519 Sep, [facility] [address], [place] [address]- 4961 Sep, [facility] [address], [place] [address]- 6331 Sep, Episodic mood disorder 296.90 [facility] [address], [place] [address]- 1624 Sep, Unspecified episodic mood disorder 296.90 [facility] [address], [place] [address]- 7048 Sep, [facility] [address], [place] [address]- 1512 Sep, [facility] [address], [place] [address]- 9926 16 Sep, 2014 Episodic mood disorder 296.90 [facility] [address], [place] [address]- 2217 Sep, [facility] [address], [place] [address]- 2842 Sep, [facility] [address], [place] [address]- 7487 Sep, [facility] [address], [place] [address]- 0436 Sep, Hematemesis 578.0 and Vomiting 787.03 [facility] [id number], [place] [address]- 3190 09 Sep, 2014 Episodic mood disorder 296.90 [facility] [address], [place] [address]- 0717 08 Sep, 2014 [facility] [address], [place] [address]- 2542 Sep, [facility] [id number], [place] [address]- 3798 Sep, Diabetes mellitus without mention of complication, type II or unspecified type, not stated as uncontrolled 250.00 and Other chronic pain 338.29 [facility] [address] 5078 Sep, Episodic mood disorder 296.90 [facility] [address] 4439 Sep, [facility] [address]- 9114 Sep, Episodic mood disorder 296.90 [facility] [address] 8822 Sep, [facility] [address], [place] [address]- 1111 August, [facility] [address] [place] [address]- 9182 August, [facility] [address], [place] [address]- 2419 August, Episodic mood disorder 296.90 [facility] [address], [place] [address]- 9124 August, [facility] [address], [place] [address]- 2402 August, Unspecified episodic mood disorder 296.90 [facility] [address], [place] [address]- 6966 August, Vomiting 787.03 [facility] [address], [place] [address]- 3998 August, [facility] [address]- 1653 August, [facility] [address]- 2745 August, [facility] [address], [place] [address]- 7676 August, [facility] [place] [facility] [address] [id number] [place] [address]- 0211 August, [facility] [place] [facility] [address] [id number] [place] [address]- 7975 Jul, [facility] [place] [facility] [address] [id number] [place] [address]- 9514 Jul, [facility] [place] [facility] [address] [id number] [place] [address]- 1710 Jul, [facility] [place] [facility] [address] [id number] [place] [address]- 5099 30 Jun, 2014 [facility] [place] [facility] [address] [id number] [place] [address]- 7202 Jun, [facility] [place] [facility] [address] [id number] [place] [address]- 9081 Jun, [facility] [place] [facility] [address] [id number] [place] [address]- 3113 Jun, [facility] [place] [facility] [address] [id number] [place] [address]- 5762 Jun, [facility] [place] [facility] [address] [id number] [place] [address]- 4074 Jun, [facility] [place] [facility] [address] [id number] [place] [address]- 5406 Jun, [facility] [place] [facility] [address] [id number] [place] [address]- 2980 30 Jun, 2014 [facility] [place] [facility] [address] [id number] [place] [address]- 5981 Jun, [facility] [place] [facility] [address] [id number] [place] [address]- 3987 Jun, [facility] [place] [facility] [address] [id number] [place] [address]- 8312 Jun, [facility] [place] [facility] [address] [id number] [place] [address] Jun, [facility] [place] [facility] [address] [id number] [place] [address] Jun, [facility] [place] [facility] [address] [id number] [place] [address] Jun, [facility] [place] [facility] [address] [id number] [place] [address] Jun, [facility] [place] [facility] [address] [id number] [place] [address] Jun, [facility] [place] [facility] [address] [id number] [place] [address] Jun, [facility] [place] [facility] [address] [id number] [place] [address] Jun, [facility] [place] [facility] [address] [id number] [place] [address] Jun, [facility] [place] [facility] [address] [id number] [place] [address] Jun, [facility] [place] [facility] [address] [id number] [place] [address] Jun, [facility] [place] [facility] [address] [id number] [place] [address] Jun, [facility] [place] [facility] [address] [id number] [place] [address] Jun, [facility] [place] [facility] [address] [id number] [place] [address] Jun, [facility] [place] [facility] [address] [id number] [place] [address] Jun, [facility] [place] [facility] [address] [id number] [place] [address]- [address]60 19 Jun, 2014 [facility] [place] [facility] [address] [id number] [place] [address] 19 Jun, 2014 [facility] [place] [facility] [address] [id number] [place] [address] 18 Jun, 2014 [facility] [place] [facility] [address] [id number] [place] [address] 18 Jun, 2014 [facility] [place] [facility] [address] [id number] [place] [address] 17 Jun, 2014 [facility] [place] [facility] [address] [id number] [place] [address] 17 Jun, 2014 [facility] [place] [facility] [address] [id number] [place] [address]- [address] 16 Jun, 2014 [facility] [place] [facility] [address] [id number] [place] [address] 16 Jun, 2014 [facility] [place] [facility] [address] [id number] [place] [address] 16 Jun, 2014 [facility] [place] [facility] [address] [id number] [place] [address]- [address] 16 Jun, 2014 [facility] [place] [facility] [address] [id number] [place] [address] 16 Jun, 2014 [facility] [place] [facility] [address] [id number] [place] [address] 16 Jun, 2014 [facility] [place] [facility] [address] [id number] [place] [address] 13 Jun, 2014 [facility] [place] [facility] [address] [id number] [place] [address]- [address] 13 Jun, 2014 [facility] [place] [facility] [address] [id number] [place] [address]- [address] 12 Jun, 2014 [facility] [place] [facility] [address] [id number] [place] [address] 12 Jun, 2014 [facility] [place] [facility] [address] [id number] [place] [address] 09 Jun, 2014 [facility] [place] [facility] [address] [id number] [place] [address] Jun, [facility] [place] [facility] [address] [id number] [place] [address] Jun, [facility] [place] [facility] [address] [id number] [place] [address] Jun, [facility] [place] [facility] [address] [id number] [place] [address] Jun, [facility] [place] [facility] [address] [id number] [place] [address] Jun, [facility] [place] [facility] [address] [id number] [place] [address] Jun, [facility] [place] [facility] [address] [id number] [place] [address] Jun, [facility] [place] [facility] [address] [id number] [place] [address] Jun, [facility] [place] [facility] [address] [id number] [place] [address] Jun, [facility] [place] [facility] [address] [id number] [place] [address] Jun, [facility] [place] [facility] [address] [id number] [place] [address] Jun, [facility] [place] [facility] [address] [id number] [place] [address] Jun, [facility] [place] [facility] [address] [id number] [place] [address] Jun, [facility] [place] [facility] [address] [id number] [place] [address] 5795 Jun, [facility] [place] [facility] [address] [id number] [place] [address] 9460 Jun, [facility] [place] [facility] [address] [id number] [place] [address] 4147 May, [facility] [place] [facility] [address] [id number] [place] [address] 8696 May, 2014 [facility] [place] [facility] [address] [id number] [place] [address] 6676 May, 2014 [facility] [place] [facility] [address] [id number] [place] [address] 2546 May, 2014 [facility] [place] [facility] [address] [id number] [place] [address] 2546 May, 2014 [facility] [place] [facility] [address] [id number] [place] [address] 2540 24 May, 2014 [facility] [place] [facility] [address] [facility] [id number] [place] [address] 9236 May, 2014 [facility] [place] [facility] [address] [facility] [id number] [place] [address] 5616 May, 2014 [facility] [place] [facility] [address] [facility] [id number] [place] [address] 9038 May, 2014 [facility] [place] [facility] [address] [facility] [id number] [place] [address] 3299 May, 2014 [facility] [place] [facility] [address] [facility] [id number] [place] [address] 2140 18 May, 2014 [facility] [place] [facility] [address] [facility] [id number] [place] [address]- 2464 18 May, 2014 [facility] [place] [facility] [address] [facility] [id number], [place] [address]46 13 May, 2014 [facility] [place] [facility] [address] [facility] [id number] [place] [address]- 2546 13 May, 2014 [facility] [place] [facility] [address] [facility] [id number] [place] [address]- 2541 11 May, 2014 [facility] [place] [facility] [address] [facility] [id number] [place] [address]- 9076 11 May, 2014 [facility] [place] [facility] [address] [facility] [id number] [place] [address]- 4047 May, 2014 [facility] [place] [facility] [address] [id number] [place] [address]- 7821 May, 2014 [facility] [place] [facility] [address] [id number] [place] [address]- 9356 May, 2014 [facility] [place] [facility] [address] [id number] [place] [address]- 4361 May, 2014 [facility] [place] [facility] [address] [id number] [place] [address]- 3122 May, 2014 [facility] [place] [facility] [address] [id number] [place] [address]- 8898 May, 2014 [facility] [place] [facility] [address] [facility] [id number] [place] [address]- 3427 May, 2014 [facility] [place] [facility] [address] [facility] [id number] [place] [address]- 4120 May, 2014 [facility] [place] [facility] [address] [id number] [place] [address]- 6568 May, 2014 [facility] [place] [facility] [address] [facility] [id number] [place] [address]- 9869 May, 2014 [facility] [place] [facility] [address] [facility] [id number] [place] [address]- 2318 May, [facility] [place] [facility] [address] [facility] [id number], [place] [address]- 2180 Apr, [facility] [place] [facility] [address] [id number] [place] [address]- 7226 Apr, [facility] [place] [facility] [address] [id number] [place] [address]- 6013 Apr, [facility] [place] [facility] [address] [id number] [place] [address]- 1370 Apr, [facility] [place] [facility] [address] [facility] [id number], [place] [address]- 4076 Apr, [facility] [place] [facility] [address] [id number] [place] [address]- 1838 Apr, [facility] [place] [facility] [address] [id number] [place] [address]- 9333 Apr, [facility] [place] [facility] [address] [id number] [place] [address]- 3768 Apr, [facility] [place] [facility] [address] [id number] [place] [address]- 2607 Apr, [facility] [place] [facility] [address] [id number] [place] [address]- 6293 Apr, [facility] [place] [facility] [address] [id number] [place] [address]- 0206 Apr, [facility] [place] [facility] [address] [id number] [place] [address]- 4207 Apr, [facility] [place] [facility] [address] [id number], [place] [address]- 1648 Apr, [facility] [place] [facility] [address] [id number], [place] [address]- 9259 Apr, [facility] [place] [facility] [address] [id number] [place] [address]- 9042 Apr, [facility] [place] [facility] [address] [id number], [place] [address]- 1379 Apr, [facility] [place] [facility] [address] [id number], [place] [address]- 3975 Apr, [facility] [place] [facility] [address] [id number] [place] [address]- 7993 Apr, [facility] [place] [facility] [address] [id number], [place] [address]- 6492 Apr, [facility] [place] [facility] [address] [id number] [place] [address]- 6626 Apr, [facility] [place] [facility] [address] [id number] [place] [address]- 6886 Mar, [facility] [address] [id number] [place] [address]- 7486 Mar, [facility] [place] [facility] [address] [id number] [place] [address]- 4856 Mar, [facility] [address] [id number] [place] [address]- 9446 Mar, [facility] [address] [id number] [place] [address]- 3360 Mar, [facility] [address] [id number] [place] [address]- 8230 Mar, [facility] [address] [id number] [place] [address]- 2505 Mar, [facility] [address] [id number] [place] [address]- 4338 Mar, [facility] [address] [id number] [place] [address]- 8160 15 Mar, 2014 [facility] [place] [facility] [address] [id number] [place] [address]- 2421 15 Mar, 2014 [facility] [address] [id number] [place] [address]- 9179 15 Mar, 2014 [facility] [place] [facility] [address] [id number] [place] [address]- 9985 15 Mar, 2014 [facility] [place] [facility] [address] [id number] [place] [address]- 9444 Mar, [facility] [place] [facility] [address] [id number] [place] [address]- 9180 Mar, [facility] [place] [facility] [address] [id number] [place] [address]- 5937 Mar, [facility] [place] [facility] [address] [id number] [place] [address] Mar, [facility] [place] [facility] [address] [id number] [place] [address]- 2687 Feb, [facility] [place] [facility] [address] [id number] [place] [address]- 2938 Feb, [facility] [place] [facility] [address] [id number] [place] [address]- 9248 Feb, [facility] [place] [facility] [address] [id number] [place] [address]- 2804 Feb, [facility] [place] [facility] [address] [id number] [place] [address]- 1390 Feb, [facility] [place] [facility] [address] [id number] [place] [address]- 3440 Feb, [facility] [place] [facility] [address] [id number] [place] [address]- 4211 Feb, [facility] [place] [facility] [address] [id number] [place] [address]- 4407 Feb, [facility] [place] [facility] [address] [id number] [place] [address]- 8019 Feb, [facility] [place] [facility] [address] [id number] [place] [address]- 8369 Feb, [facility] [place] [facility] [address] [id number] [place] [address]- 8725 Feb, [facility] [place] [facility] [address] [id number], [place] [address]- 8064 17 Feb, 2014 [facility] [place] [facility] [address] [id number] [place] [address]- 8930 Feb, [facility] [place] [facility] [address] [id number] [place] [address]- 8532 14 Feb, 2014 [facility] [place] [facility] [address] [id number], [place] [address]- 1850 Feb, [facility] [place] [facility] [address] [id number], [place] [address]- 4546 Feb, [facility] [place] [facility] [address] [id number] [place] [address]- 0833 14 Feb, 2014 [facility] [place] [facility] [address] [id number] [place] [address]- 4826 Feb, [facility] [place] [facility] [address] [id number] [place] [address]- 1489 Feb, [facility] [place] [facility] [address] [id number] [place] [address]- 1421 Feb, [facility] [place] [facility] [address] [id number] [place] [address]- 1245 Feb, [facility] [place] [facility] [address] [id number] [place] [address]- 4961 Jan, [facility] [place] [facility] [address] [id number] [place] [address]- 4677 Jan, [facility] [place] [facility] [address] [id number] [place] [address]- 1233 Jan, [facility] [place] [facility] [address] [id number] [place] [address]- 1968 Jan, [facility] [place] [facility] [address] [id number] [place] [address]- 9584 Jan, [facility] [place] [facility] [address] [id number] [place] [address]- 1001 Jan, [facility] [place] [facility] [address] [id number], [place] [address]- 8934 Jan, [facility] [place] [facility] [address] [id number] [place] [address]- 6541 Jan, [facility] [place] [facility] [address] [id number] [place] [address]- 7227 Jan, [facility] [place] [facility] [address] [id number] [place] [address]- 0549 Jan, [facility] [place] [facility] [address] [id number] [place] [address]- 0207 17 Jan, 2013 [facility] [place] [facility] [address] [id number] [place] [address]- 3183 17 Jan, 2013 [facility] [place] [facility] [address] [id number] [place] [address]- 9079 17 Jan, 2013 [facility] [place] [facility] [address] [id number] [place] [address]- 4077 17 Jan, 2013 [facility] [place] [facility] [address] [id number] [place] [address]- 7923 15 Jan, 2013 [facility] [place] [facility] [address] [id number] [place] [address]- 9555 15 Jan, 2013 [facility] [place] [facility] [address] [id number] [place] [address]- 3751 14 Jan, 2013 [facility] [place] [facility] [address] [id number] [place] [address]- 7938 14 Jan, 2013 [facility] [place] [facility] [address] [id number] [place] [address]- 7643 13 Jan, 2013 [facility] [place] [facility] [address] [id number] [place] [address]- 3817 13 Jan, 2013 [facility] [place] [facility] [address] [id number] [place] [address]- 1913 13 Jan, 2013 [facility] [place] [facility] [address] [id number] [place] [address]- 1710 13 Jan, 2013 [facility] [place] [facility] [address] [id number] [place] [address]- 9479 10 Jan, 2013 [facility] [place] [facility] [address] [id number] [place] [address]- 3777 02 Jan, 2014 [facility] [place] [facility] [address] [id number] [place] [address]295 02 Jan, 2014 [facility] [place] [facility] [address] [id number] [place] 6724 25 Sep, 2013 [facility] [place] [facility] [address] [id number] [place] [address]- 8433 25 Sep, 2013 [facility] [place] [facility] [address] [id number] [place] [address]- 7678 23 Sep, 2013 [facility] [place] [facility] [address] [id number] [place] [address]- 3820 23 Sep, 2013 [facility] [place] [facility] [address] [id number] [place] [address]- 8594 19 Sep, 2013 [facility] [place] [facility] [address] [id number] [place] [address]- 9593 19 Sep, 2013 [facility] [place] [facility] [address] [id number] [place] [address]- 1263 17 Sep, 2013 [facility] [place] [facility] [address] [id number] [place] [address]- 4741 17 Sep, 2013 [facility] [place] [facility] [address] [id number] [place] [address]- 3716 09 Sep, 2013 [facility] [place] [facility] [address] [id number] [place] [address]- 4722 09 Sep, 2013 [facility] [place] [facility] [address] [id number] [place] [address]- 9048 08 Sep, 2013 [facility] [place] [facility] [address] [id number], [place] [address]- 7977 08 Sep, 2013 [facility] [place] [facility] [address] [id number], [place] [address]- 6866 04 Sep, 2013 [facility] [place] [facility] [address] [id number] [place] [address]- 3428 04 Sep, 2013 [facility] [place] [facility] [address] [id number] [place] [address]- 5824 02 Sep, 2013 [facility] [place] [facility] [address] [id number] [place] [address]- 1636 02 Sep, 2013 [facility] [place] [facility] [address] [id number] [place] [address]- 1935 Dec, [facility] [place] [facility] [address] [id number] [place] [address]- 9257 Dec, [facility] [place] [facility] [address] [id number] [place] [address]- 1283 Nov, [facility] [place] [facility] [address] [id number] [place] [address]- 1066 Nov, [facility] [place] [facility] [address] [id number] [place] [address]- 9390 Nov, [facility] [place] [facility] [address] [id number] [place] [address]- 8419 Nov, [facility] [place] [facility] [address] [id number] [place] [address]- 8253 Nov, [facility] [place] [facility] [address] [id number] [place] [address]- 4113 Nov, [facility] [place] [facility] [address] [id number] [place] [address]- 0103 Nov, [facility] [place] [facility] [address] [id number] [place] [address]- 6926 Nov, [facility] [place] [facility] [address] [id number] [place] [address]- 3335 Nov, [facility] [place] [facility] [address] [id number] [place] [address]- 4081 Nov, [facility] [place] [facility] [address] [id number] [place] [address]- 7807 Nov, [facility] [place] [facility] [address] [id number] [place] [address]- 7237 Nov, [facility] [place] [facility] [address] [id number] [place] [address]- 4177 Oct, [facility] [place] [facility] [address] [id number] [place] [address]- 6237 Oct, [facility] [place] [facility] [address] [id number] [place] [address]- 6563 Oct, [facility] [place] [facility] [address] [id number] [place] [address]- 0193 Oct, [facility] [place] [facility] [address] [id number] [place] [address]- 7215 Oct, [facility] [place] [facility] [address] [id number] [place] [address]- 8658 Oct, [facility] [place] [facility] [address] [id number] [place] [address]- 1298 Oct, [facility] [place] [facility] [address] [id number] [place] [address]- 9146 Oct, [facility] [place] [facility] [address] [id number] [place] [address]- 9270 Oct, [facility] [place] [facility] [address] [id number] [place] [address]- 2647 Oct, [facility] [place] [facility] [address] [id number] [place] [address]- 4904 Oct, [facility] [place] [facility] [address] [id number] [place] [address]- 5699 Oct, [facility] [place] [facility] [address] [id number] [place] [address]- 1806 Oct, [facility] [place] [facility] [address] [id number] [place] [address]- 4948 Oct, [facility] [place] [facility] [address] [id number] [place] [address]- 1046 Oct, [facility] [place] [facility] [address] [id number] [place] [address]- 8750 Oct, [facility] [place] [facility] [address] [id number] [place] [address]- 0698 Oct, [facility] [place] [facility] [address] [id number] [place] [address]- 4547 Sep, [facility] [place] [facility] [address] [id number] [place] [address]- 9601 Sep, [facility] [place] [facility] [address] [id number] [place] [address]- 4977 Sep, [facility] [place] [facility] [address] [id number] [place] [address]- 0978 Sep, [facility] [place] [facility] [address] [id number] [place] [address]- 8553 Sep, [facility] [place] [facility] [address] [id number] [place] [address]- 6143 Sep, [facility] [place] [facility] [address] [id number] [place] [address]- 5414 Sep, [facility] [place] [facility] [address] [id number] [place] [address]- 6177 Sep, [facility] [place] [facility] [address] [id number] [place] [address]- 3917 Sep, [facility] [place] [facility] [address] [id number] [place] [address]- 2674 Sep, [facility] [place] [facility] [address] [id number] [place] [address]- 4753 Sep, [facility] [place] [facility] [address] [id number], [place] [address]- 2939 Sep, [facility] [place] [facility] [address] [id number], [place] [address]- 3128 Sep, [facility] [place] [facility] [address] [id number] [place] [address]- 1385 Sep, [facility] [place] [facility] [address] [id number] [place] [address]- 1560 09 Sep, 2013 [facility] [place] [facility] [address] [id number] [place] [address]- 7239 Sep, [facility] [place] [facility] [address] [id number] [place] [address]- 8772 Sep, [facility] [address] [id number] [place] [address]- 5816 Sep, [facility] [place] [facility] [address] [id number] [place] [address]- 6784 Sep, [facility] [address] [id number] [place] [address]- 9617 Sep, [facility] [place] [facility] [address] [id number] [place] [address]- 1297 Sep, [facility] [address] [id number] [place] [address]- 3504 Sep, [facility] [address] [id number] [place] [address]- 6168 August, [facility] [place] [facility] [address] [id number] [place] [address]- 2457 August, [facility] [address] [id number] [place] [address]- 1433 August, [facility] [place] [facility] [address] [id number] [place] [address]- 8114 August, [facility] [address] [id number] [place] [address]- 7[address] August, [facility] [place] [facility] [address] [id number] [place] [address] August, [facility] [place] [facility] [address] [id number] [place] [address] August, [facility] [place] [facility] [address] [id number] [place] [address] August, [facility] [place] [facility] [address] [id number] [place] [address] August, [facility] [place] [facility] [address] [id number] [place] [address] August, [facility] [place] [facility] [address] [id number] [place] [address] August, [facility] [place] [facility] [address] [id number] [place] [address] Jul, [facility] [place] [facility] [address] [id number] [place] [address] Jul, [facility] [place] [facility] [address] [id number] [place] [address] Jul, [facility] [place] [facility] [address] [id number] [place] [address] Jul, [facility] [place] [facility] [address] [id number] [place] [address] Jul, [facility] [place] [facility] [address] [id number] [place] [address] Jul, [facility] [place] [facility] [address] [id number] [place] [address] Jul, [facility] [place] [facility] [address] [id number] [place] [address] Jul, [facility] [place] [facility] [address] [id number] [place] [address] Jul, [facility] [place] [facility] [address] [id number] [place] [address] Jul, [facility] [place] [facility] [address] [id number] [place] [address] 16 Jul, 2013 [facility] [place] [facility] [address] [id number] [place] [address] Jul, [facility] [place] [facility] [address] [id number] [place] [address] Jul, [facility] [place] [facility] [address] [id number] [place] [address] Jul, [facility] [place] [facility] [address] [id number] [place] [address] Jul, [facility] [place] [facility] [address] [id number] [place] [address] Jul, [facility] [place] [facility] [address] [id number] [place] [address] Jul, [facility] [place] [facility] [address] [id number] [place] [address] Jul, [facility] [place] [facility] [address] [id number] [place] [address] Jul, [facility] [place] [facility] [address] [id number] [place] [address] Jul, [facility] [place] [facility] [address] [id number] [place] [address] Jul, [facility] [place] [facility] [address] [id number] [place] [address] Jul, [facility] [place] [facility] [address] [id number] [place] [address] Jul, [facility] [place] [facility] [address] [id number] [place] [address] Jun, [facility] [place] [facility] [address] [id number] [place] [address] Jun, [facility] [place] [facility] [address] [id number] [place] [address] 1461 Jun, [facility] [place] [facility] [address] [id number] [place] [address] Jun, [facility] [place] [facility] [address] [id number] [place] [address]- 1666 Jun, [facility] [place] [facility] [address] [id number] [place] [address]- 45[address] Jun, [facility] [place] [facility] [address] [id number] [place] [address] Jun, [facility] [place] [facility] [address] [id number] [place] [address]- [address] Jun, [facility] [place] [facility] [address] [id number] [place] [address]- [address]65 18 Jun, 2013 [facility] [place] [facility] [address] [id number] [place] [address]- [address]67 18 Jun, 2013 [facility] [place] [facility] [address] [id number] [place] [address] Jun, [facility] [place] [facility] [address] [id number] [place] [address] Jun, [facility] [place] [facility] [address] [id number] [place] [address] 18 May, 2013 [facility] [place] [facility] [address] [id number] [place] [address] May, [facility] [place] [facility] [address] [id number] [place] [address] Apr, [facility] [place] [facility] [address] [id number] [place] [address] Apr, [facility] [place] [facility] [address] [id number] [place] [address]- [address]96 30 Apr, 2013 [facility] [place] [facility] [address] [id number] [place] [address]- 14[address] Apr, [facility] [place] [facility] [address] [id number] [place] [address]- 1642 Apr, [facility] [place] [facility] [address] [id number] [place] [address]- [address] 27 Apr, 2013 [facility] [place] [facility] [address] [id number] [place] [address]- [address]64 Apr, [facility] [place] [facility] [address] [id number] [place] [address] 20 Apr, 2013 [facility] [place] [facility] [address] [id number] [place] [address]- [address] Apr, [facility] [address] [id number] [place] [address] 6912 Apr, [facility] [place] [facility] [address] [id number] [place] [address]328 Apr, [facility] [place] [facility] [address] [id number] [place] [address] Mar, [facility] [place] [facility] [address] [id number] [place] [address]- [address] Mar, [facility] [place] [facility] [address] [id number] [place] [address]- [address] Mar, [facility] [place] [facility] [address] [id number] [place] [address]70 Mar, [facility] [place] [facility] [address] [id number] [place] [address]- 24[address] Feb, [facility] [place] [facility] [address] [id number], [place] [address] Feb, [facility] [place] [facility] [address] [id number], [place] [address] Feb, [facility] [place] [facility] [address] [id number], [place] [address] Feb, [facility] [place] [facility] [address] [id number], [place] [address] Feb, [facility] [place] [facility] [address] [id number], [place] [address] Feb, [facility] [place] [facility] [address] [id number], [place] [address]- [address] Feb, [facility] [place] [facility] [address] [id number], [place] [address]- [address] Feb, [facility] [place] [facility] [address] [id number], [place] [address]- [address] Feb, [facility] [place] [facility] [address] [id number] [place] [address]- [address] Feb, [facility] [place] [facility] [address] [id number] [place] [address]- 9291 Feb, [facility] [place] [facility] [address] [id number] [place] [address]- 1435 Jan, [facility] [place] [facility] [address] [id number] [place] [address]- 67[address] Jan, [facility] [place] [facility] [address] [id number] [place] [address]- [address] Jan, [facility] [place] [facility] [address] [id number] [place] [address]- 478[address] Jan, [facility] [place] [facility] [address] [id number] [place] [address]- 2961 Jan, [facility] [place] [facility] [address] [id number] [place] [address]- [address]68 Jan, [facility] [facility] [address] [id number] [place] [address] Jan, [facility] [place] [facility] [address] [id number] [place] [address] Jan, [facility] [place] [facility] [address] [id number] [place] [address]69 30 Sep, 2012 [facility] [place] [facility] [address] [id number] [place] [address] 39[address] 25 Sep, 2012 [facility] [place] [facility] [address] [id number] [place] [address] 18 Sep, 2012 [facility] [place] [facility] [address] [id number] [place] [address]366 17 Sep, 2012 [facility] [place] [facility] [address] [id number] [place] [address] 2542 17 Sep, 2012 [facility] [place] [facility] [address] [id number] [place] [address] 4726 16 Dec, 2012 [facility] [place] [facility] [address] [id number] [place] [address]- 1555 13 Dec, 2012 [facility] [place] [facility] [address] [id number] [place] [address] 3229 11 Dec, 2012 [facility] [place] [facility] [address] [id number] [place] [address] 2819 05 Dec, 2012 [facility] [place] [facility] [address] [id number] [place] [address] 5544 04 Dec, 2012 [facility] [address] [id number] [place] [address] 9860 30 Nov, 2012 [facility] [address] [id number] [place] [address] 8718 Nov, [facility] [address] [id number] [place] [address] 3858 Nov, [facility] [address] [id number] [place] [address] 9553 Nov, [facility] [address] [id number] [place] [address]- 9390 Nov, [facility] [place] [address] [id number] [place] [address]- 2156 Nov, [facility] [address] [id number] [place] [address] 6004 Nov, [facility] [address] [id number] [place] [address]- 4567 Oct, [facility] [address] [id number] [place] [address] 3615 Oct, [facility] [address] [id number] [place] [address] 5332 Oct, [facility] [address] [id number] [place] [address] 1498 Oct, [facility] [address] [id number] [place] [address]- 3449 15 Oct, 2012 [facility] [address] [id number] [place] [address]- 7072 Oct, [facility] [address] [id number] [place] [address]- 8266 Sep, [facility] [place] [address] [id number] [place] [address]- 7309 Sep, [facility] [address] [id number] [place] [address]- 1301 Sep, [facility] [address] [id number] [place] [address]- 9269 14 Sep, 2012 [facility] [address] [id number] [place] [address]- 4707 Sep, [facility] [address] [id number] [place] [address]- 9839 Sep, [facility] [address] [id number] [place] [address] 3717 Sep, [facility] [address] [id number] [place] [address]- 3328 Sep, [facility] [address] [id number] [place] [address]- 8491 Sep, [facility] [address] [id number] [place] [address] 2760 August, [facility] [address] [id number] [place] [address]- 2169 August, [facility] [address] [id number] [place] [address]- 9935 August, [facility] [address] [id number] [place] [address]- 6000 August, [facility] [address] [id number] [place] [address]- 9551 August, [facility] [address] [id number] [place] [address]- 2546 August, [facility] [address] [id number] [place] [address] 4306 August, [facility] [address] [id number] [place] [address]- 2546 August, [facility] [address] [id number] [place] [address] 7716 Jul, [facility] [address] [id number] [place] [address] 1376 Jul, [facility] [address] [place] [id number] Jul [facility] [address] [id number] [place] [address] 1846 Jun, [facility] [address] [id number] [place] [address]- 7336 Jun, [facility] [address] [id number] [place] [address]- 0116 Jun, [facility] [address] [id number] [place] [address]- 2826 Jun, [facility] [address] [facility] [id number] [place] [address]- 5346 Jun, [facility] [address] [id number] [place] [address]- 2546 Jun, [facility] [address] [id number] [place] [address]- 2546 May, [facility] [address] [id number] [place] [address]- 0816 May, [facility] [address] [id number] [place] [address]- 2546 May, [facility] [address] [id number] [place] [address]- 2546 May, [facility] [address] [id number] [place] [address]- 5933 May, [facility] [address] [id number] [place] [address]- 4529 Apr, [facility] [address] [id number] [place] [address]- 0722 Apr, [facility] [address] [id number] [place] [address]- 4536 Apr, [facility] [address] [id number] [place] [address] 3684 Apr, [facility] [address] [id number] [place] [address] 5137 Apr, [facility] [address] [id number] [place] [address] 2056 Apr, [facility] [address] [id number] [place] [address] 5239 Mar, [facility] [address] [id number] [place] [address] 2194 Mar, [facility] [address] [id number] [place] [address]- 6962 Mar, [facility] [address] [id number] [place] [address]- 8697 Mar, [facility] [address] [id number] [place] [address]- 2166 Mar, [facility] [address] [id number] [place] [address] 18 Mar, 2012 [facility] [address] [id number] [place] [address]- 6933 18 Mar, 2012 [facility] [address] [id number] [place] [address]- 9886 10 Mar, 2012 [facility] [address] [id number], [place] [address] 9936 Mar, [facility] [address] [id number] [place] [address]- 8735 Mar, [facility] [address] [id number] [place] [address]- 5540 Mar, [facility] [address] [id number] [place] [address]- 5958 Feb, [facility] [address] [id number] [place] [address]- 1070 Feb, [facility] [address] [id number] [place] [address]- 7166 Feb, [facility] [address] [id number] [place] [address]- 0477 Feb, [facility] [address] [id number] [address] 9726 Feb, [facility] [address] [id number] [place] [address]- 5396 Feb, [facility] [address] [id number] [place] [address]- 9822 Feb, [facility] [address] [facility] [id number] [place] [address]- 6721 Feb, [facility] [address] [id number], [place] [address]- 7814 Feb, [facility] [address] [id number], [place] [address]- 1896 Feb, [facility] [address] [id number], [place] [address]- 9156 Feb, [facility] [address] [id number] [place] [address]- 0152 Jan, [facility] [address] [facility] [id number] [place] [address]- 7639 Jan, [facility] [address] [id number] [place] [address]- 6015 Jan, [facility] [address] [id number] [place] [address]- 5736 Jan, [facility] [address] [id number] [place] [address]- 5606 Jan, [facility] [address] [id number] [place] [address]- 6346 Jan, [facility] [address] [id number] [place] [address]- 4676 Jan, [facility] [address] [id number] [place] [address]- 1608 24 Dec, 2011 [facility] [address] [id number] [place] [address]- 7120 17 Dec, 2011 [facility] [address] [id number] [place] [address]- 5391 13 Dec, 2011 [facility] [address] [id number] [place] [address]- 8774 12 Dec, 2011 [facility] [address] [id number] [place] [address]- 8041 Nov, [facility] [address] [id number] [place] [address]- 5122 Nov, [facility] [address] [id number] [place] [address]- 5495 17 Nov, 2011 [facility] [address] [id number] [place] [address]- 0041 15 Nov, 2011 [facility] [address] [id number] [place] [address]- 1099 14 Nov, 2011 [facility] [address] [id number] [place] [address]- 7226 13 Nov, 2011 [facility] [address] [id number] [place] [address]- 8803 Nov, [facility] [address] [id number] [place] [address]- 7300 Nov, [facility] [address] [id number] [place] [address]- 2466 Nov, [facility] [address] [id number] [place] [address]- 1769 Nov, [facility] [address] [id number] [place] [address]- 2980 Nov, [facility] [address] [id number] [place] [address]- 2876 Nov, [facility] [address] [id number] [place] [address]- 3573 Nov, [facility] [address] [id number] [place] [address]- 8282 Oct, [facility] [address] [id number] [place] [address]- 8027 Oct, [facility] [address] [id number] [place] [address]- 5543 Oct, [facility] [address] [id number] [place] [address]- 2286 Oct, [facility] [address] [id number] [place] [address]- 0237 Oct, [facility] [address] [id number] [place] [address]- 7113 Oct, [facility] [address] [id number] [place] [address]- 1422 Oct, [facility] [place] [facility] [address] [id number] [place] [address]- 6349 Oct, [facility] [place] [facility] [address] [id number] [place] [address]- 8040 Oct, [facility] [address] [id number] [place] [address]- 0575 Sep, [facility] [facility] [address] [id number] [place] [address]- 3232 Sep, [facility] [place] [facility] [address] [id number] [place] [address]- 3026 Sep, [facility] [address] [id number] [place] [address]- 9676 Sep, [facility] [place] [facility] [address] [id number] [place] [address]- 9630 Sep, [facility] [address] [id number] [place] [address]- 7360 Sep, [facility] [place] [address] [id number] [place] [address]- 9235 Sep, [facility] [address] [id number] [place] [address]- 4787 Sep, [facility] [address] [id number] [place] [address]- 3231 August, [facility] [address] [id number] [place] [address]- 3136 August, [facility] [address] [id number] [place] [address]- 4050 August, [facility] [facility] [address] [id number] [place] [address]- 3613 August, [facility] [address] [id number] [place] [address]- 7784 August, [facility] [address] [id number] [place] [address]- 5833 August, [facility] [address] [id number] [place] [address]- 8567 August, [facility] [place] [facility] [address] [id number] [place] [address]- 6945 August, [facility] [address] [facility] [id number] [place] [address] August, [facility] [address] [facility] [id number], [place] [address]- 5207 August, [facility] [address] [facility] [id number], [place] [address]- 0891 August, [facility] [address] [facility] [id number], [place] [address]- 7590 August, [facility] [address] [facility] [id number], [place] [address]- 6459 Oct, IMMUNIZATIONS No Known Immunizations SOCIAL HISTORY [...]
--- OUTSIDE RECORDS SUMMARY | 2018-02-11 13:38 | XMS REPORT ---
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 [id number] [place] [address] 90138- 5327 Mar, Chronic diarrhea K52.9 ; Intractable vomiting with nausea, vomiting of unspecified type R11.2 ; Cellulitis, unspecified cellulitis site L03.90 ; Type 2 diabetes mellitus with diabetic polyneuropathy E11.42 and Postinflammatory hyperpigmentation L81.0 [facility] [id number] [place] [address] 41045- 1256 Mar, Unspecified mood [affective] disorder F39 [facility] [id number] [place] [address] 17916- 5675 Mar, Unspecified mood [affective] disorder F39 [facility] [id number] [place] [address] 96936- 0701 Mar, [facility] [id number] [place] [address] 45561- 5919 Mar, [facility] [id number] [place] [address] 74842- 1983 Mar, [facility] [id number] [place] [address] 60926- 0264 Mar, [facility] [id number] [place] [address] 47860- 5904 Mar, [facility] [id number] [place] [address] 63093- 9801 Mar, [facility] [address] [address]- 1374 Feb, Unspecified mood [affective] disorder F39 [facility] [id number] [place] [address] 69386- 6519 Feb, [facility] [id number] [place] [address] 95141- 1508 Feb, [facility] [id number] [place] [address] 05460- 8102 Jan, Unspecified mood [affective] disorder F[address] [id number] [id number] Jan, Encounter for dental examination Z01.20 [facility] [id number] [place] [address] 50887- 6078 Jan, [facility] [id number] [place] [address] 83015- 6050 Jan, [facility] [id number] [place] [address] 34489- 2359 Jan, [facility] [id number] [place] [address] 49982- 3988 Jan, [facility] [id number] [place] [address] 28736- 1134 Jan, [facility] [id number] [place] [address] 39522- 3190 Jan, Abdominal abscess K65.1 and Dental caries K02.9 [facility] [id number] [place] [address] 85754- 4617 Jan, [facility] [id number] [place] [address] 86672- 5710 Dec, Diabetes with neurological manifestations, type II or unspecified type, not stated as uncontrolled 250.60 ; Essential hypertension, benign 401.1 ; Concussion 850.9 and Skin texture changes 782.8 [facility] [id number] [place] [address] 76668- 2075 Dec, [facility] [id number] [place] [address] 98465- 8685 Dec, [facility] [address] [facility] [id number] [address] 2546 22 Dec, 2014 [facility] [address] [address] 2546 21 Dec, 2014 [facility] [address] [address] 2546 17 Dec, 2014 Affective disorder 296.90 [facility] [id number] [place] [address] 12901 2546 14 Sep, 2014 [facility] [address] [address] 2546 10 Dec, 2014 Affective disorder 296.90 [facility] [address] [address] 2546 04 Dec, 2014 [facility] [address] [address] 2546 04 Dec, 2014 [facility] [address] [address] 2546 04 Dec, 2014 [facility] [address] [address] 2546 Dec, 2014 [facility] [address] [address] 2546 Nov, Affective disorder 296.90 [facility] [address] [address] 2546 Nov, 2014 [facility] [address] [address] 2546 Nov, Affective disorder 296.90 [facility] [address] [address] 2546 Nov, Diarrhea 787.91 [facility] [address] [address] 2546 Nov, [facility] [address] [address]- 2546 Nov, Diarrhea 787.91 [facility] [address] [address] 2546 Nov, Diarrhea 787.91 and Hyperlipidemia 272.4 [facility] [id number] [place] [address] 68426 2546 Nov, Diarrhea 787.91 [facility] [id number] [place] [address] 09155 2546 Nov, Affective disorder 296.90 [facility] [id number] [place] [address] 64886 2546 Nov, Affective disorder 296.90 [facility] [id number] [place] [address] 30654 2546 Nov, Affective disorder 296.90 [facility] [id number] [place] [address] 38413- 7861 Nov, [facility] [id number] [place] [address] 52152 2544 Nov, [facility] [id number] [place] [address] 48755- 1444 Nov, [facility] [id number] [place] [address] 34600- 5870 Nov, Episodic mood disorder 296.90 [facility] [address] [address] 2543 Nov, [facility] [address] [address] 2545 Nov, [facility] [id number] [place] [address] 56425 2545 Nov, [facility] [id number] [place] [address] 99533 2545 Nov, [facility] [address] [address]- 2548 Nov, [facility] [address] [address]- 4417 Nov, Lymphedema 457.1 ; Hyperlipidemia 272.4 ; Essential hypertension, benign 401.1 and Numbness of toes 782.0 [facility] [address] [place] [address]- 1729 Nov, Episodic mood disorder 296.90 [facility] [address] [place] [address]- 6805 Oct, [facility] [address] [address]- 1008 Oct, [facility] [address] [address]- 7550 Oct, [facility] [address] [address]- 7980 Oct, [facility] [address] [address]- 5307 Oct, [facility] [address] [address]- 9707 Oct, [facility] [address] [address]- 5060 Oct, [facility] [address] [address]- 4008 Oct, [facility] [address] 9908 Oct, Episodic mood disorder 296.90 [facility] [address] [address]- 7039 Sep, [facility] [address] 0920 Sep, [facility] [id number]- 5163 Sep, [facility] [address] [address]- 5360 Sep, [facility] [address] [address]- 6610 Sep, [facility] [address] [address]- 9195 Sep, Episodic mood disorder 296.90 [facility] [address] [address]- 6583 Sep, Unspecified episodic mood disorder 296.90 [facility] [address] [address]- 8801 Sep, [facility] [id number] [address] Sep, [facility] [id number] [address] 16 Sep, 2014 Episodic mood disorder 296.90 [facility] [id number] [address] Sep, [facility] [id number] [address] Sep, [facility] [id number] [address] Sep, [facility] [id number] [address] Sep, Hematemesis 578.0 and Vomiting 787.03 [facility] [id number] [address] 09 Sep, 2014 Episodic mood disorder 296.90 [facility] [id number] [address] 08 Sep, 2014 [facility] [id number] [address] Sep, [facility] [id number] [address] Sep, Diabetes mellitus without mention of complication, type II or unspecified type, not stated as uncontrolled 250.00 and Other chronic pain 338.29 [facility] [id number] [address] Sep, Episodic mood disorder 296.90 [facility] [id number] [address] [address] Sep, [facility] [id number] [address] [address] Sep, Episodic mood disorder 296.90 [facility] [id number] [address] Sep, [facility] [id number] [address] August, [facility] [id number] [address] August, [facility] [id number] [address] August, Episodic mood disorder 296.90 [facility] [id number] [address] August, [facility] [id number] [address] August, Unspecified episodic mood disorder 296.90 [facility] [id number] [address] August, Vomiting 787.03 [facility] [id number] [address] August, [facility] [id number] [id number] [address] August, [facility] [id number] [address] August, [facility] [id number] [address] August, [facility] [place] [facility] [address] [id number] [place] [address] August, [facility] [place] [facility] [address] [id number] [place] [address] Jul, [facility] [place] [facility] [address] [id number] [place] [address] Jul, [facility] [place] [facility] [address] [id number] [place] [address]- 2011 Jul, [facility] [place] [facility] [address] [id number] [place] [address] 30 Jun, 2014 [facility] [place] [facility] [address] [id number] [place] [address]- 9581 Jun, [facility] [place] [facility] [address] [id number] [place] [address]- 8705 Jun, [facility] [place] [facility] [address] [id number] [place] [address]- 1414 Jun, [facility] [place] [facility] [address] [id number] [place] [address]- [address]60 Jun, [facility] [place] [facility] [address] [id number] [place] [address]- 2146 Jun, [facility] [place] [facility] [address] [id number] [place] [address]- 5990 Jun, [facility] [place] [facility] [address] [id number] [place] [address]- 9824 30 Jun, 2014 [facility] [place] [facility] [address] [id number] [place] [address]- 54[address] Jun, [facility] [place] [facility] [address] [id number] [place] [address]- 9963 Jun, [facility] [place] [facility] [address] [id number] [place] [address]- 5[address] Jun, [facility] [place] [facility] [address] [id number] [place] [address]- 9[address] Jun, [facility] [place] [facility] [address] [id number] [place] [address]- 3796 Jun, [facility] [place] [facility] [address] [id number] [place] [address]- 0356 Jun, [facility] [place] [facility] [address] [id number] [place] [address]- 7445 Jun, [facility] [place] [facility] [address] [id number] [place] [address]- 8234 Jun, [facility] [place] [facility] [address] [id number] [place] [address]- 0906 Jun, [facility] [place] [facility] [address] [id number] [place] [address]- 9578 Jun, [facility] [place] [facility] [address] [id number] [place] [address]- 1287 Jun, [facility] [place] [facility] [address] [id number] [place] [address]- 9002 Jun, [facility] [place] [facility] [address] [id number] [place] [address]- 3083 Jun, [facility] [place] [facility] [address] [id number] [place] [address]- 7361 Jun, [facility] [place] [facility] [address] [id number] [place] [address]- 0825 Jun, [facility] [place] [facility] [address] [id number] [place] [address]- 4735 Jun, [facility] [place] [facility] [address] [id number] [place] [address]- 4500 Jun, [facility] [place] [facility] [address] [id number] [place] [address]- 1739 19 Jun, 2014 [facility] [place] [facility] [address] [id number] [place] [address]- 6771 19 Jun, 2014 [facility] [place] [facility] [address] [id number] [place] [address]- 2226 18 Jun, 2014 [facility] [place] [facility] [address] [id number] [place] [address]- 2384 18 Jun, 2014 [facility] [place] [facility] [address] [id number] [place] [address]- 2527 17 Jun, 2014 [facility] [place] [facility] [address] [id number] [place] [address]- 5995 17 Jun, 2014 [facility] [place] [facility] [address] [id number] [place] [address]- 6603 16 Jun, 2014 [facility] [place] [facility] [address] [id number] [place] [address]- 2417 16 Jun, 2014 [facility] [place] [facility] [address] [id number] [place] [address]- 3727 16 Jun, 2014 [facility] [place] [facility] [address] [id number] [place] [address]- 1323 16 Jun, 2014 [facility] [place] [facility] [address] [id number] [place] [address]- 6247 16 Jun, 2014 [facility] [place] [facility] [address] [id number] [place] [address]- 4111 16 Jun, 2014 [facility] [place] [facility] [address] [id number] [place] [address]- 8325 13 Jun, 2014 [facility] [place] [facility] [address] [id number] [place] [address]- 3000 13 Jun, 2014 [facility] [place] [facility] [address] [id number] [place] [address]- 2650 12 Jun, 2014 [facility] [place] [facility] [address] [id number] [place] [address]- 2978 12 Jun, 2014 [facility] [place] [facility] [address] [id number] [place] [address]- 9319 09 Jun, 2014 [facility] [place] [facility] [address] [id number] [place] [address]- 4569 Jun, [facility] [place] [facility] [address] [id number] [place] [address]- 4817 Jun, [facility] [place] [facility] [address] [id number] [place] [address]- 0090 Jun, [facility] [place] [facility] [address] [id number] [place] [address]- 9992 Jun, [facility] [place] [facility] [address] [id number] [place] [address]- 6386 Jun, [facility] [place] [facility] [address] [id number] [place] [address]- 5605 Jun, [facility] [place] [facility] [address] [id number] [place] [address]- 1116 Jun, [facility] [place] [facility] [address] [id number] [place] [address]- 6174 Jun, [facility] [place] [facility] [address] [id number] [place] [address]- 6961 Jun, [facility] [place] [facility] [address] [id number] [place] [address]- 2148 Jun, [facility] [place] [facility] [address] [id number] [place] [address]- 9447 Jun, [facility] [place] [facility] [address] [id number] [place] [address]- 0868 Jun, [facility] [place] [facility] [address] [id number] [place] [address]- 5053 Jun, [facility] [place] [facility] [address] [id number] [place] [address]- 0886 Jun, [facility] [place] [facility] [address] [id number] [place] [address]- 0480 Jun, [facility] [place] [facility] [address] [id number] [place] [address]- 7953 May, [facility] [place] [facility] [address] [id number] [place] [address]- 2666 May, 2014 [facility] [place] [facility] [address] [id number] [place] [address]- 8856 May, 2014 [facility] [place] [facility] [address] [id number] [place] [address] 2546 May, 2014 [facility] [place] [facility] [address] [id number] [place] [address] 2546 May, 2014 [facility] [place] [facility] [address] [id number] [place] [address]- 2544 24 May, 2014 [facility] [place] [facility] [address] [facility] [id number] [place] [address]- 8946 May, 2014 [facility] [place] [facility] [address] [facility] [id number] [place] [address]- 7437 May, 2014 [facility] [place] [facility] [address] [facility] [id number] [place] [address]- 4024 May, 2014 [facility] [place] [facility] [address] [facility] [id number] [place] [address]- 5594 May, 2014 [facility] [place] [facility] [address] [facility] [id number] [place] [address]- 3844 18 May, 2014 [facility] [place] [facility] [address] [facility] [id number] [place] [address]- 1036 18 May, 2014 [facility] [place] [facility] [address] [facility] [id number] [address]- 2546 13 May, 2014 [facility] [place] [facility] [address] [facility] [id number] [place] [address]- 2546 13 May, 2014 [facility] [place] [facility] [address] [facility] [id number] [place] [address]- 2544 11 May, 2014 [facility] [place] [facility] [address] [facility] [id number] [place] [address]- 7386 11 May, 2014 [facility] [place] [facility] [address] [facility] [id number] [place] [address]- 8078 May, 2014 [facility] [place] [facility] [address] [id number] [place] [address]- 7762 May, 2014 [facility] [place] [facility] [address] [id number] [place] [address]- 3706 May, 2014 [facility] [place] [facility] [address] [id number] [place] [address]- 5364 May, 2014 [facility] [place] [facility] [address] [id number] [place] [address]- 3203 May, 2014 [facility] [place] [facility] [address] [id number] [place] [address]- 3960 May, 2014 [facility] [place] [facility] [address] [facility] [id number] [place] [address]- 1167 May, 2014 [facility] [place] [facility] [address] [facility] [id number] [place] [address]- 5341 May, 2014 [facility] [place] [facility] [address] [id number] [place] [address]- 6643 May, 2014 [facility] [place] [facility] [address] [facility] [id number] [place] [address]- 8681 May, 2014 [facility] [place] [facility] [address] [facility] [id number] [place] [address]- 4658 May, [facility] [place] [facility] [address] [facility] [id number] [address]- 9975 Apr, [facility] [place] [facility] [address] [id number] [place] [address]- 1293 Apr, [facility] [place] [facility] [address] [id number] [place] [address]- 5706 Apr, [facility] [place] [facility] [address] [id number] [place] [address]- 4361 Apr, [facility] [place] [facility] [address] [facility] [id number] [address]- 1926 Apr, [facility] [place] [facility] [address] [id number] [place] [address]- 2352 Apr, [facility] [place] [facility] [address] [id number] [place] [address]- 0001 Apr, [facility] [place] [facility] [address] [id number] [place] [address]- 5814 Apr, [facility] [place] [facility] [address] [id number] [place] [address]- 5235 Apr, [facility] [place] [facility] [address] [id number] [place] [address]- 1133 Apr, [facility] [place] [facility] [address] [id number] [place] [address]- 6302 Apr, [facility] [place] [facility] [address] [id number] [place] [address]- 7756 Apr, [facility] [place] [facility] [address] [id number] [address]- 7349 Apr, [facility] [place] [facility] [address] [id number] [address]- 3478 Apr, [facility] [place] [facility] [address] [id number] [place] [address]- 1067 Apr, [facility] [place] [facility] [address] [id number] [address]- 4451 Apr, [facility] [place] [facility] [address] [id number] [address]- 9321 Apr, [facility] [place] [facility] [address] [id number] [place] [address]- 8237 Apr, [facility] [place] [facility] [address] [id number] [address]- 3845 Apr, [facility] [place] [facility] [address] [id number] [place] [address]- 9106 Apr, [facility] [place] [facility] [address] [id number] [place] [address]- 8430 Mar, [facility] [address] [id number] [place] [address]- 4866 Mar, [facility] [place] [facility] [address] [id number] [place] [address]- 3206 Mar, [facility] [address] [id number] [place] [address]- 5016 Mar, [facility] [address] [id number] [place] [address]- 1223 Mar, [facility] [address] [id number] [place] [address]- 4953 Mar, [facility] [address] [id number] [place] [address]- 7339 Mar, [facility] [address] [id number] [place] [address]- 3667 Mar, [facility] [address] [id number] [place] [address]- 7353 15 Mar, 2014 [facility] [place] [facility] [address] [id number] [place] [address]- 4026 15 Mar, 2014 [facility] [address] [id number] [place] [address]- 6419 15 Mar, 2014 [facility] [place] [facility] [address] [id number] [place] [address]- 9472 15 Mar, 2014 [facility] [place] [facility] [address] [id number] [place] [address]- 5541 Mar, [facility] [place] [facility] [address] [id number] [place] [address]- 5050 Mar, [facility] [place] [facility] [address] [id number] [place] [address]- 2348 Mar, [facility] [place] [facility] [address] [id number] [place] [address] Mar, [facility] [place] [facility] [address] [id number] [place] [address]- 7143 Feb, [facility] [place] [facility] [address] [id number] [place] [address]- 1629 Feb, [facility] [place] [facility] [address] [id number] [place] [address]- 6333 Feb, [facility] [place] [facility] [address] [id number] [place] [address]- 8265 Feb, [facility] [place] [facility] [address] [id number] [place] [address]- 2967 Feb, [facility] [place] [facility] [address] [id number] [place] [address]- 7583 Feb, [facility] [place] [facility] [address] [id number] [place] [address]- 8901 Feb, [facility] [place] [facility] [address] [id number] [place] [address]- 8961 Feb, [facility] [place] [facility] [address] [id number] [place] [address]- 6985 Feb, [facility] [place] [facility] [address] [id number] [place] [address]- 1671 Feb, [facility] [place] [facility] [address] [id number] [place] [address]- 4386 Feb, [facility] [place] [facility] [address] [id number] [address]- 5001 17 Feb, 2014 [facility] [place] [facility] [address] [id number] [place] [address]- 2891 Feb, [facility] [place] [facility] [address] [id number] [place] [address]- 9369 14 Feb, 2014 [facility] [place] [facility] [address] [id number] [address]- 8383 Feb, [facility] [place] [facility] [address] [id number] [place] [address]- 3972 Feb, [facility] [place] [facility] [address] [id number] [place] [address]- 6923 14 Feb, 2014 [facility] [place] [facility] [address] [id number] [place] [address]- 9233 Feb, [facility] [place] [facility] [address] [id number] [place] [address]- 8626 Feb, [facility] [place] [facility] [address] [id number] [place] [address]- 7460 Feb, [facility] [place] [facility] [address] [id number] [place] [address]- 1345 Feb, [facility] [place] [facility] [address] [id number] [place] [address]- 9107 Jan, [facility] [place] [facility] [address] [id number] [place] [address]- 1002 Jan, [facility] [place] [facility] [address] [id number] [place] [address]- 7156 Jan, [facility] [place] [facility] [address] [id number] [place] [address]- 6156 Jan, [facility] [place] [facility] [address] [id number] [place] [address]- 0598 Jan, [facility] [place] [facility] [address] [id number] [place] [address]- 3339 Jan, [facility] [place] [facility] [address] [id number] [address]- 0484 Jan, [facility] [place] [facility] [address] [id number] [place] [address]- 2764 Jan, [facility] [place] [facility] [address] [id number] [place] [address]- 0204 Jan, [facility] [place] [facility] [address] [id number] [place] [address]- 7777 Jan, [facility] [place] [facility] [address] [id number] [place] [address]- 0312 17 Jan, 2013 [facility] [place] [facility] [address] [id number] [place] [address]- 1364 17 Jan, 2013 [facility] [place] [facility] [address] [id number] [place] [address]- 5234 17 Jan, 2013 [facility] [place] [facility] [address] [id number] [place] [address]- 5874 17 Jan, 2013 [facility] [place] [facility] [address] [id number] [place] [address]- 8417 15 Jan, 2013 [facility] [place] [facility] [address] [id number] [place] [address]- 3476 15 Jan, 2013 [facility] [place] [facility] [address] [id number] [place] [address]- 3808 14 Jan, 2013 [facility] [place] [facility] [address] [id number] [place] [address]- 4441 14 Jan, 2013 [facility] [place] [facility] [address] [id number] [place] [address]- 8104 13 Jan, 2013 [facility] [place] [facility] [address] [id number] [place] [address]- 9034 13 Jan, 2013 [facility] [place] [facility] [address] [id number] [place] [address]- 0521 13 Jan, 2013 [facility] [place] [facility] [address] [id number] [place] [address]- 3094 13 Jan, 2013 [facility] [place] [facility] [address] [id number] [place] [address]- 5616 10 Jan, 2013 [facility] [place] [facility] [address] [id number] [place] [address]- 9812 02 Jan, 2014 [facility] [place] [facility] [address] [id number] [place] [address] 02 Jan, 2014 [facility] [place] [facility] [address] [id number] [place] [address] 25 Sep, 2013 [facility] [place] [facility] [address] [id number] [place] [address] 0692 25 Sep, 2013 [facility] [place] [facility] [address] [id number] [place] [address]771 23 Sep, 2013 [facility] [place] [facility] [address] [id number] [place] [address] 8232 23 Sep, 2013 [facility] [place] [facility] [address] [id number] [place] [address]- 9530 19 Sep, 2013 [facility] [place] [facility] [address] [id number] [place] [address] 5393 19 Sep, 2013 [facility] [place] [facility] [address] [id number] [place] [address] 7477 17 Sep, 2013 [facility] [place] [facility] [address] [id number] [place] [address] 4479 17 Sep, 2013 [facility] [place] [facility] [address] [id number] [place] [address]- 5392 09 Sep, 2013 [facility] [place] [facility] [address] [id number] [place] [address] 09 Sep, 2013 [facility] [place] [facility] [address] [id number] [place] [address] 1536 08 Sep, 2013 [facility] [place] [facility] [address] [id number] [address] 08 Sep, 2013 [facility] [place] [facility] [address] [id number] [address] 8[address] 04 Sep, 2013 [facility] [place] [facility] [address] [id number] [place] [address]- 9362 04 Sep, 2013 [facility] [place] [facility] [address] [id number] [place] [address] 9658 02 Sep, 2013 [facility] [place] [facility] [address] [id number] [place] [address]- 8531 02 Sep, 2013 [facility] [place] [facility] [address] [id number] [place] [address] 6993 Dec, [facility] [place] [facility] [address] [id number] [place] [address] 1259 Dec, [facility] [place] [facility] [address] [id number] [place] [address] 5670 Nov, [facility] [place] [facility] [address] [id number] [place] [address]- 2156 Nov, [facility] [place] [facility] [address] [id number] [place] [address] 2197 Nov, [facility] [place] [facility] [address] [id number] [place] [address]- 1855 Nov, [facility] [place] [facility] [address] [id number] [place] [address]- 0168 Nov, [facility] [place] [facility] [address] [id number] [place] [address]- 0062 Nov, [facility] [place] [facility] [address] [id number] [place] [address]- 7506 Nov, [facility] [place] [facility] [address] [id number] [place] [address] 4828 Nov, [facility] [place] [facility] [address] [id number] [place] [address] 4560 Nov, [facility] [place] [facility] [address] [id number] [place] [address] 5116 Nov, [facility] [place] [facility] [address] [id number] [place] [address]- 8061 Nov, [facility] [place] [facility] [address] [id number] [place] [address]- 1716 Nov, [facility] [place] [facility] [address] [id number] [place] [address] 1260 Oct, [facility] [place] [facility] [address] [id number] [place] [address] 8154 Oct, [facility] [place] [facility] [address] [id number] [place] [address]- 377[address] Oct, [facility] [place] [facility] [address] [id number] [place] [address]- 5020 Oct, [facility] [place] [facility] [address] [id number] [place] [address]- 30[address] Oct, [facility] [place] [facility] [address] [id number] [place] [address]- 1278 Oct, [facility] [place] [facility] [address] [id number] [place] [address]- 4128 Oct, [facility] [place] [facility] [address] [id number] [place] [address]- 7178 Oct, [facility] [place] [facility] [address] [id number] [place] [address]- 4805 Oct, [facility] [place] [facility] [address] [id number] [place] [address]- 2455 Oct, [facility] [place] [facility] [address] [id number] [place] [address]- 1123 Oct, [facility] [place] [facility] [address] [id number] [place] [address] 6991 Oct, [facility] [place] [facility] [address] [id number] [place] [address]- 3277 Oct, [facility] [place] [facility] [address] [id number] [place] [address]- 9182 Oct, [facility] [place] [facility] [address] [id number] [place] [address]- 3058 Oct, [facility] [place] [facility] [address] [id number] [place] [address]- 4128 Oct, [facility] [place] [facility] [address] [id number] [place] [address]- 3845 Oct, [facility] [place] [facility] [address] [id number] [place] [address]- 8591 Sep, [facility] [place] [facility] [address] [id number] [place] [address]- 2888 Sep, [facility] [place] [facility] [address] [id number] [place] [address]- 8973 Sep, [facility] [place] [facility] [address] [id number] [place] [address]- 3940 Sep, [facility] [place] [facility] [address] [id number] [place] [address]- 2243 Sep, [facility] [place] [facility] [address] [id number] [place] [address]- 2983 Sep, [facility] [place] [facility] [address] [id number] [place] [address]- 0895 Sep, [facility] [place] [facility] [address] [id number] [place] [address] 2139 Sep, [facility] [place] [facility] [address] [id number] [place] [address]- 8543 Sep, [facility] [place] [facility] [address] [id number] [place] [address]- 1750 Sep, [facility] [place] [facility] [address] [id number] [place] [address]- 0837 Sep, [facility] [place] [facility] [address] [id number] [address] 2580 Sep, [facility] [place] [facility] [address] [id number] [address]- 6889 Sep, [facility] [place] [facility] [address] [id number] [place] [address]- 1707 Sep, [facility] [place] [facility] [address] [id number] [place] [address]- 7355 09 Sep, 2013 [facility] [place] [facility] [address] [id number] [place] [address]- 5400 Sep, [facility] [place] [facility] [address] [id number] [place] [address]- 4062 Sep, [facility] [address] [id number] [place] [address] Sep, [facility] [place] [facility] [address] [id number] [place] [address] 23[address] Sep, [facility] [address] [id number] [place] [address] 77[address] Sep, [facility] [place] [facility] [address] [id number] [place] [address] 47[address] Sep, [facility] [address] [id number] [place] [address] 09[address] Sep, [facility] [address] [id number] [place] [address]99 August, [facility] [place] [facility] [address] [id number] [place] [address] August, [facility] [address] [id number] [place] [address] 8495 August, [facility] [place] [facility] [address] [id number] [place] [address]393 August, [facility] [address] [id number] [place] [address] 9549 August, [facility] [place] [facility] [address] [id number] [place] [address] 8630 August, [facility] [place] [facility] [address] [id number] [place] [address] 9207 August, [facility] [place] [facility] [address] [id number] [place] [address] 0069 August, [facility] [place] [facility] [address] [id number] [place] [address] 5662 August, [facility] [place] [facility] [address] [id number] [place] [address] 2295 August, [facility] [place] [facility] [address] [id number] [place] [address]- 9529 August, [facility] [place] [facility] [address] [id number] [place] [address] 6819 Jul, [facility] [place] [facility] [address] [id number] [place] [address]- 3581 Jul, [facility] [place] [facility] [address] [id number] [place] [address]- 9728 Jul, [facility] [place] [facility] [address] [id number] [place] [address]- 9238 Jul, [facility] [place] [facility] [address] [id number] [place] [address]- 5944 Jul, [facility] [place] [facility] [address] [id number] [place] [address]- 3077 Jul, [facility] [place] [facility] [address] [id number] [place] [address]- 0412 Jul, [facility] [place] [facility] [address] [id number] [place] [address]- 3709 Jul, [facility] [place] [facility] [address] [id number] [place] [address]- 1815 Jul, [facility] [place] [facility] [address] [id number] [place] [address]- 7869 Jul, [facility] [place] [facility] [address] [id number] [place] [address]- 1266 16 Jul, 2013 [facility] [place] [facility] [address] [id number] [place] [address]- 5501 Jul, [facility] [place] [facility] [address] [id number] [place] [address]- 3768 Jul, [facility] [place] [facility] [address] [id number] [place] [address]- 5887 Jul, [facility] [place] [facility] [address] [id number] [place] [address]- 5376 Jul, [facility] [place] [facility] [address] [id number] [place] [address]- 8762 Jul, [facility] [place] [facility] [address] [id number] [place] [address]- 8139 Jul, [facility] [place] [facility] [address] [id number] [place] [address]- 7774 Jul, [facility] [place] [facility] [address] [id number] [place] [address]- 5921 Jul, [facility] [place] [facility] [address] [id number] [place] [address]- 8286 Jul, [facility] [place] [facility] [address] [id number] [place] [address]- 0194 Jul, [facility] [place] [facility] [address] [id number] [place] [address]- 0535 Jul, [facility] [place] [facility] [address] [id number] [place] [address]- 6642 Jul, [facility] [place] [facility] [address] [id number] [place] [address]- 3322 Jun, [facility] [place] [facility] [address] [id number] [place] [address]- 2331 Jun, [facility] [place] [facility] [address] [id number] [place] [address]- 3953 Jun, [facility] [place] [facility] [address] [id number] [place] [address]- 0730 Jun, [facility] [place] [facility] [address] [id number] [place] [address]- 6385 Jun, [facility] [place] [facility] [address] [id number] [place] [address]- 4396 Jun, [facility] [place] [facility] [address] [id number] [place] [address]- 4866 Jun, [facility] [place] [facility] [address] [id number] [place] [address]- 8956 Jun, [facility] [place] [facility] [address] [id number] [place] [address]- 7813 18 Jun, 2013 [facility] [place] [facility] [address] [id number] [place] [address]- 1086 18 Jun, 2013 [facility] [place] [facility] [address] [id number] [place] [address]- 8058 Jun, [facility] [place] [facility] [address] [id number] [place] [address]- 6847 Jun, [facility] [place] [facility] [address] [id number] [place] [address]- 2016 18 May, 2013 [facility] [place] [facility] [address] [id number] [place] [address]- 0724 May, [facility] [place] [facility] [address] [id number] [place] [address]- 3654 Apr, [facility] [place] [facility] [address] [id number] [place] [address]- 4106 Apr, [facility] [place] [facility] [address] [id number] [place] [address]- 8740 30 Apr, 2013 [facility] [place] [facility] [address] [id number] [place] [address]- 0313 Apr, [facility] [place] [facility] [address] [id number] [place] [address]- 1090 Apr, [facility] [place] [facility] [address] [id number] [place] [address]- 7492 27 Apr, 2013 [facility] [place] [facility] [address] [id number] [place] [address]- 0827 Apr, [facility] [place] [facility] [address] [id number] [place] [address]- 4824 20 Apr, 2013 [facility] [place] [facility] [address] [id number] [place] [address]- 2729 Apr, [facility] [address] [id number] [place] [address]- 2584 Apr, [facility] [place] [facility] [address] [id number] [place] [address]- 3129 Apr, [facility] [place] [facility] [address] [id number] [place] [address] Mar, [facility] [place] [facility] [address] [id number] [place] [address]- 2064 Mar, [facility] [place] [facility] [address] [id number] [place] [address]- 1796 Mar, [facility] [place] [facility] [address] [id number] [place] [address]- 0242 Mar, [facility] [place] [facility] [address] [id number] [place] [address]- 1492 Feb, [facility] [place] [facility] [address] [id number] [address]- 0148 Feb, [facility] [place] [facility] [address] [id number] [address]- 5112 Feb, [facility] [place] [facility] [address] [id number] [address]- 5951 Feb, [facility] [place] [facility] [address] [id number] [place] [address]- 6473 Feb, [facility] [place] [facility] [address] [id number] [address]- 7113 Feb, [facility] [place] [facility] [address] [id number] [address]- 7353 Feb, [facility] [place] [facility] [address] [id number] [address]- 7512 Feb, [facility] [place] [facility] [address] [id number] [address]- 8038 Feb, [facility] [place] [facility] [address] [id number] [place] [address]- 8231 Feb, [facility] [place] [facility] [address] [id number] [place] [address]- 6358 Feb, [facility] [place] [facility] [address] [id number] [place] [address]- 0251 Jan, [facility] [place] [facility] [address] [id number] [place] [address]- 4007 Jan, [facility] [place] [facility] [address] [id number] [place] [address]- 8411 Jan, [facility] [place] [facility] [address] [id number] [place] [address]- 8785 Jan, [facility] [place] [facility] [address] [id number] [place] [address]- 0538 Jan, [facility] [place] [facility] [address] [id number] [place] [address]- 3829 Jan, [facility] [place] [facility] [address] [id number] [place] [address]- 5788 Jan, [facility] [place] [facility] [address] [id number] [place] [address]- 1094 Jan, [facility] [place] [facility] [address] [id number] [place] [address]- 7416 30 Sep, 2012 [facility] [place] [facility] [address] [id number] [place] [address]- 4604 25 Sep, 2012 [facility] [place] [facility] [address] [id number] [place] [address]- 1921 18 Sep, 2012 [facility] [place] [facility] [address] [id number] [place] [address]- 1243 17 Sep, 2012 [facility] [place] [facility] [address] [id number] [place] [address]- 2548 17 Sep, 2012 [facility] [place] [facility] [address] [id number] [place] [address]- 3153 16 Dec, 2012 [facility] [place] [facility] [address] [id number] [place] [address]- 6795 13 Dec, 2012 [facility] [place] [facility] [address] [id number] [place] [address]- 0450 11 Dec, 2012 [facility] [place] [facility] [address] [id number] [place] [address]- 3482 05 Dec, 2012 [facility] [place] [facility] [address] [id number] [place] [address]- 3141 04 Dec, 2012 [facility] [address] [id number] [place] [address]- 6810 30 Nov, 2012 [facility] [place] [facility] [address] [id number] [place] [address]- 1658 Nov, [facility] [address] [id number] [place] [address]- 2278 Nov, [facility] [address] [id number] [place] [address]- 8998 Nov, [facility] [place] [facility] [address] [id number] [place] [address]- 5630 Nov, [facility] [place] [facility] [address] [id number] [place] [address]- 2962 Nov, [facility] [place] [facility] [address] [id number] [place] [address]- 4240 Nov, [facility] [place] [facility] [address] [id number] [place] [address]- 6770 Oct, [facility] [place] [facility] [address] [id number] [place] [address]- 2668 Oct, [facility] [place] [facility] [address] [id number] [place] [address]- 5442 Oct, [facility] [place] [facility] [address] [id number] [place] [address]- 9105 Oct, [facility] [place] [facility] [address] [id number] [place] [address]- 5318 15 Oct, 2012 [facility] [address] [id number] [place] [address]- 9074 Oct, [facility] [place] [facility] [address] [id number] [place] [address]- 3594 Sep, [facility] [place] [facility] [address] [id number] [place] [address]- 3117 Sep, [facility] [place] [facility] [address] [id number] [place] [address]- 5495 Sep, [facility] [place] [facility] [address] [id number] [place] [address]- 9092 14 Sep, 2012 [facility] [place] [facility] [address] [id number] [place] [address]- 7162 Sep, [facility] [place] [facility] [address] [id number] [place] [address]- 4182 Sep, [facility] [place] [facility] [address] [id number] [place] [address]- 1294 Sep, [facility] [place] [facility] [address] [id number] [place] [address]- 9951 Sep, [facility] [place] [facility] [address] [id number] [place] [address]- 4543 Sep, [facility] [place] [facility] [address] [id number] [place] [address]- 5065 August, [facility] [place] [facility] [address] [id number] [place] [address]- 6508 August, [facility] [place] [facility] [address] [id number] [place] [address]- 0634 August, [facility] [place] [facility] [address] [id number] [place] [address]- 6192 August, [facility] [place] [facility] [address] [id number] [place] [address]- 1527 August, [facility] [place] [facility] [address] [id number] [place] [address]- 2546 August, [facility] [address] [id number] [place] [address]- 9846 August, [facility] [address] [id number] [place] [address]- 2546 August, [facility] [address] [id number] [place] [address]- 0356 Jul, [facility] [address] [id number] [place] [address]- 5266 Jul, [facility] [address] [place] [id number] [address] [facility] [address] [id number] [place] [address]- 9686 Jun, [facility] [address] [id number] [place] [address]- 0436 Jun, [facility] [address] [id number] [place] [address]- 5406 Jun, [facility] [address] [id number] [place] [address]- [address], [facility] [address] [facility] [id number] [place] [address]- 8196 Jun, [facility] [address] [id number] [place] [address]- 2546 Jun, [facility] [address] [id number] [place] [address]- 2546 May, [facility] [address] [id number] [place] [address]- 7036 May, [facility] [address] [id number] [place] [address]- 2546 May, [facility] [address] [id number] [place] [address]- 2546 May, [facility] [place] [facility] [address] [id number] [place] [address]- 6342 May, [facility] [address] [id number] [place] [address]- 6952 Apr, [facility] [address] [id number] [place] [address]- 9430 Apr, [facility] [address] [id number] [place] [address]- 6474 Apr, [facility] [address] [id number] [place] [address]- 6043 Apr, [facility] [address] [id number] [place] [address]- 9298 Apr, [facility] [address] [id number] [place] [address]- 4738 Apr, [facility] [address] [id number] [place] [address]- 6759 Mar, [facility] [address] [id number] [place] [address]- 0566 Mar, [facility] [address] [id number] [place] [address]- 8586 Mar, [facility] [address] [id number] [place] [address]- 3981 Mar, [facility] [address] [id number] [place] [address]- 7625 Mar, [facility] [place] [facility] [address] [id number] [place] 18 Mar, 2012 [facility] [place] [facility] [address] [id number] [place] [address]- 7082 18 Mar, 2012 [facility] [place] [facility] [address] [id number] [place] [address]- 2279 10 Mar, 2012 [facility] [place] [facility] [address] [id number] [address]- 5678 Mar, [facility] [place] [facility] [address] [id number] [place] [address]- 3132 Mar, [facility] [place] [facility] [address] [id number] [place] [address]- 9176 Mar, [facility] [place] [facility] [address] [id number] [place] [address]- 3398 Feb, [facility] [place] [facility] [address] [id number] [place] [address]- 4828 Feb, [facility] [place] [facility] [address] [id number] [place] [address]- 1014 Feb, [facility] [place] [facility] [address] [id number] [place] [address]- 6630 Feb, [facility] [place] [facility] [address] [id number] [place] [address]- 5160 Feb, [facility] [place] [facility] [address] [id number] [place] [address]- 6554 Feb, [facility] [place] [facility] [address] [id number] [place] [address]- 3342 Feb, [facility] [place] [facility] [address] [facility] [id number] [place] [address]- 2512 Feb, [facility] [place] [facility] [address] [id number] [address]- 6220 Feb, [facility] [place] [facility] [address] [id number] [address]- 9984 Feb, [facility] [place] [facility] [address] [id number] [address]- 9187 Feb, [facility] [place] [facility] [address] [id number] [place] [address]- 3197 Jan, [facility] [place] [facility] [address] [facility] [id number] [place] [address]- 5272 Jan, [facility] [place] [facility] [address] [id number] [place] [address]- 5074 Jan, [facility] [place] [facility] [address] [id number] [place] [address]- 8971 Jan, [facility] [place] [facility] [address] [id number] [place] [address]- 6786 Jan, [facility] [place] [facility] [address] [id number] [place] [address]- 1496 Jan, [facility] [place] [facility] [address] [id number] [place] [address]- 4699 Jan, [facility] [place] [facility] [address] [id number] [place] [address]- 4737 24 Dec, 2011 [facility] [place] [facility] [address] [id number] [place] [address]- 7335 17 Dec, 2011 [facility] [place] [facility] [address] [id number] [place] [address]- 2273 13 Dec, 2011 [facility] [place] [facility] [address] [id number] [place] [address]- 3221 12 Dec, 2011 [facility] [place] [facility] [address] [id number] [place] [address] Nov, [facility] [place] [facility] [address] [id number] [place] [address] Nov, [facility] [place] [facility] [address] [id number] [place] [address] 17 Nov, 2011 [facility] [place] [facility] [address] [id number] [place] [address] 15 Nov, 2011 [facility] [place] [facility] [address] [id number] [place] [address] 14 Nov, 2011 [facility] [place] [facility] [address] [id number] [place] [address] 13 Nov, 2011 [facility] [place] [facility] [address] [id number] [place] [address] Nov, [facility] [place] [facility] [address] [id number] [place] [address] Nov, [facility] [place] [facility] [address] [id number] [place] [address] Nov, [facility] [place] [facility] [address] [id number] [place] [address] Nov, [facility] [place] [facility] [address] [id number] [place] [address] Nov, [facility] [place] [facility] [address] [id number] [place] [address] Nov, [facility] [place] [facility] [address] [id number] [place] [address] Nov, [facility] [place] [facility] [address] [id number] [place] [address] Oct, [facility] [place] [facility] [address] [id number] [place] [address] Oct, [facility] [place] [facility] [address] [id number] [place] [address] Oct, [facility] [place] [facility] [address] [id number] [place] [address] Oct, [facility] [place] [facility] [address] [id number] [place] [address] Oct, [facility] [place] [facility] [address] [id number] [place] [address] Oct, [facility] [place] [facility] [address] [id number] [place] [address] Oct, [facility] [place] [facility] [address] [id number] [place] [address] Oct, [facility] [place] [facility] [address] [id number] [place] [address] Oct, [facility] [place] [facility] [address] [id number] [place] [address] Sep, [facility] [place] [facility] [address] [id number] [place] [address] Sep, [facility] [place] [facility] [address] [id number] [place] [address] Sep, [facility] [place] [facility] [address] [id number] [place] [address] Sep, [facility] [place] [facility] [address] [id number] [place] [address] Sep, [facility] [place] [facility] [address] [id number] [place] [address] Sep, [facility] [place] [facility] [address] [id number] [place] [address] Sep, [facility] [place] [facility] [address] [id number] [place] [address] Sep, [facility] [place] [facility] [address] [id number] [place] [address] August, [facility] [place] [facility] [address] [id number] [place] [address] August, [facility] [place] [facility] [address] [id number] [place] [address] August, [facility] [place] [facility] [address] [id number] [place] [address] August, [facility] [place] [facility] [address] [id number] [place] [address] August, [facility] [place] [facility] [address] [id number] [place] [address] August, [facility] [place] [facility] [address] [id number] [place] [address] August, [facility] [place] [facility] [address] [id number] [place] [address] August, [facility] [place] [facility] [address] [facility] [id number] [address] August, [facility] [address] [facility] [id number] [place] [id number] August, [facility] [address] [facility] [id number] [address] August, [facility] [address] [facility] [id number] [address] August, [facility] [address] [facility] [id number] [address] Oct, IMMUNIZATIONS No Known Immunizations SOCIAL HISTORY Never Assessed REASON FOR VISIT Refill Request PLAN OF CARE VITAL SIGNS MEDICATIONS Medication Instructions Dosage Frequency Start Date End Date Duration Status Triamcinolone Acetonide 0.1 % Externally Twice a day 1 application to affected area as needed 12h Active RESULTS No Results PROCEDURES No [...] Hospitalization History suicidal ideations-[place] 12/28 Hospitalization History hypoxia--[facility] 02/13/2016 Hospitalization History shortness of breath at june 2016 Hospitalization History Shortness of breath at august 2016 Hospitalization History SOB, chest pain at 12/2016
--- OUTSIDE RECORDS SUMMARY | 2018-02-11 13:40 | XMS REPORT ---
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 [place] [address] 48592- 9267 Mar, Chronic diarrhea K52.9 ; Intractable vomiting with nausea, vomiting of unspecified type R11.2 ; Cellulitis, unspecified cellulitis site L03.90 ; Type 2 diabetes mellitus with diabetic polyneuropathy E11.42 and Postinflammatory hyperpigmentation L81.0 [facility] [address] [place] [address] 57843- 1140 Mar, Unspecified mood [affective] disorder F39 [facility] [id number] [place] [address] 77190- 0076 Mar, Unspecified mood [affective] disorder F39 [facility] [id number] [place] [address] 06903- 0379 Mar, [facility] [id number] [place] [address] 02065- 3405 Mar, [facility] [address] [place] [address] 95782- 7580 Mar, [facility] [address] [place] [address] 65189- 8507 Mar, [facility] [address] [place] [address] 33731- 7047 Mar, [facility] [id number] [place] [address] 17187- 0739 Mar, [facility] [address] [address]- 4484 Feb, Unspecified mood [affective] disorder F39 [facility] [id number] [place] [address] 06762- 3603 Feb, [facility] [address] [place] [address] 92549- 7227 Feb, [facility] [id number] [place] [address] 51327- 0151 Jan, Unspecified mood [affective] disorder F[address] [id number] [id number] Jan, Encounter for dental examination Z01.20 [facility] [id number] [place] [address] 81498- 2569 Jan, [facility] [id number] [place] [address] 75087- 7454 Jan, [facility] [id number] [place] [address] 48361- 8876 Jan, [facility] [id number] [place] [address] 38249- 5028 Jan, [facility] [id number] [place] [address] 50982- 4293 Jan, [facility] [id number] [place] [address] 28435- 0505 Jan, Abdominal abscess K65.1 and Dental caries K02.9 [facility] [id number] [place] [address] 75017- 7439 Jan, [facility] [id number] [place] [address] 71851- 3868 Dec, Diabetes with neurological manifestations, type II or unspecified type, not stated as uncontrolled 250.60 ; Essential hypertension, benign 401.1 ; Concussion 850.9 and Skin texture changes 782.8 [facility] [address] [place] [address] 15498- 8983 Dec, [facility] [id number] [place] [address] 54623- 6678 Dec, [facility] [address] [facility] [id number] [address] 2546 22 Dec, 2014 [facility] [address] [address] 2546 21 Dec, 2014 [facility] [address], [place] [address] 2546 17 Dec, 2014 Affective disorder 296.90 [facility] [address] [place] [address] 97415 2546 14 Sep, 2014 [facility] [address] [address] 2546 10 Dec, 2014 Affective disorder 296.90 [facility] [address] [address] 2546 04 Dec, 2014 [facility] [address] [address] 2546 04 Dec, 2014 [facility] [address] [address] 2546 04 Dec, 2014 [facility] [address] [address] 2546 Dec, 2014 [facility] [address] [address] 2546 Nov, Affective disorder 296.90 [facility] [address] [address] 2546 Nov, 2014 [facility] [address] [address] 2546 Nov, Affective disorder 296.90 [facility] [address], [place] [address] 2546 Nov, Diarrhea 787.91 [facility] [address] [address] 2546 Nov, [facility] [address] [address]- 2546 Nov, Diarrhea 787.91 [facility] [address] [address] 2546 Nov, Diarrhea 787.91 and Hyperlipidemia 272.4 [facility] [address] [place] [address] 45178 2546 Nov, Diarrhea 787.91 [facility] [id number] [place] [address] 74589 2546 Nov, Affective disorder 296.90 [facility] [id number] [place] [address] 78124 2546 Nov, Affective disorder 296.90 [facility] [id number] [place] [address] 57161 2546 Nov, Affective disorder 296.90 [facility] [id number] [place] [address] 55983- 0670 Nov, [facility] [id number] [place] [address] 15403 2545 Nov, [facility] [id number] [place] [address] 04629- 0882 Nov, [facility] [id number] [place] [address] 46225- 3968 Nov, Episodic mood disorder 296.90 [facility] [address] [address] 2540 Nov, [facility] [address] [address] 2542 Nov, [facility] [id number] [place] [address] 87794 2547 Nov, [facility] [id number] [place] [address] 42095 254 Nov, [facility] [address] [address]- 2545 Nov, [facility] [address], [place] [address]- 5996 Nov, Lymphedema 457.1 ; Hyperlipidemia 272.4 ; Essential hypertension, benign 401.1 and Numbness of toes 782.0 [facility] [address] [place] [address]- 4302 Nov, Episodic mood disorder 296.90 [facility] [address] [place] [address]- 0005 Oct, [facility] [address] [address]- 5056 Oct, [facility] [address] [address]- 3614 Oct, [facility] [address] [address]- 3141 Oct, [facility] [address], [place] [address]- 7240 Oct, [facility] [address] [address]- 2792 Oct, [facility] [address], [place] [address]- 7040 Oct, [facility] [address] [address]- 3142 Oct, [facility] [address]- 2125 Oct, Episodic mood disorder 296.90 [facility] [address] [address]- 6894 Sep, [facility] [id number] 0168 Sep, [facility] [id number]- 8310 Sep, [facility] [address] [address]- 9318 Sep, [facility] [address] [address]- 7606 Sep, [facility] [address] [address]- 4916 Sep, Episodic mood disorder 296.90 [facility] [address], [place] [address]- 1889 Sep, Unspecified episodic mood disorder 296.90 [facility] [address], [place] [address]- 1760 Sep, [facility] [id number], [place] [address]- 1381 Sep, [facility] [id number] [address]- 1932 16 Sep, 2014 Episodic mood disorder 296.90 [facility] [address], [place] [address]- 7194 Sep, [facility] [id number], [place] [address]- 8493 Sep, [facility] [id number] [address]- 7648 Sep, [facility] [id number], [place] [address]- 1701 Sep, Hematemesis 578.0 and Vomiting 787.03 [facility] [id number] [address]- 7107 09 Sep, 2014 Episodic mood disorder 296.90 [facility] [address], [place] [address]- 5506 08 Sep, 2014 [facility] [address] [address]- 6454 Sep, [facility] [id number] [address]- 0514 Sep, Diabetes mellitus without mention of complication, type II or unspecified type, not stated as uncontrolled 250.00 and Other chronic pain 338.29 [facility] [id number] [address] Sep, Episodic mood disorder 296.90 [facility] [id number] [address] Sep, [facility] [id number] [address] Sep, Episodic mood disorder 296.90 [facility] [id number] [address] Sep, [facility] [id number], [place] [address] August, [facility] [id number], [place] [address] August, [facility] [id number], [place] [address] August, Episodic mood disorder 296.90 [facility] [id number], [place] [address] August, [facility] [id number], [place] [address] August, Unspecified episodic mood disorder 296.90 [facility] [id number], [place] [address] August, Vomiting 787.03 [facility] [id number], [place] [address] August, [facility] [id number] [id number] August, [facility] [id number] [address] August, [facility] [id number], [place] [address] August, [facility] [place] [facility] [address] [id number] [place] [address] August, [facility] [place] [facility] [address] [id number] [place] [address] Jul, [facility] [place] [facility] [address] [id number] [place] [address] Jul, [facility] [place] [facility] [address] [id number] [place] [address] Jul, [facility] [place] [facility] [address] [id number] [place] [address] 30 Jun, 2014 [facility] [place] [facility] [address] [id number] [place] [address] Jun, [facility] [place] [facility] [address] [id number] [place] [address] Jun, [facility] [place] [facility] [address] [id number] [place] [address] Jun, [facility] [place] [facility] [address] [id number] [place] [address] Jun, [facility] [place] [facility] [address] [id number] [place] [address] Jun, [facility] [place] [facility] [address] [id number] [place] [address] Jun, [facility] [place] [facility] [address] [id number] [place] [address] 30 Jun, 2014 [facility] [place] [facility] [address] [id number] [place] [address] Jun, [facility] [place] [facility] [address] [id number] [place] [address] Jun, [facility] [place] [facility] [address] [id number] [place] [address] Jun, [facility] [place] [facility] [address] [address] [id number] [place] [address] Jun, [facility] [place] [facility] [address] [id number] [place] [address] Jun, [facility] [place] [facility] [address] [id number] [place] [address] 9876 Jun, [facility] [place] [facility] [address] [id number] [place] [address] 2919 Jun, [facility] [place] [facility] [address] [id number] [place] [address] 3[address] Jun, [facility] [place] [facility] [address] [id number] [place] [address] 5011 Jun, [facility] [place] [facility] [address] [id number] [place] [address]- 0188 Jun, [facility] [place] [facility] [address] [id number] [place] [address] 2564 Jun, [facility] [place] [facility] [address] [id number] [place] [address]- 4903 Jun, [facility] [place] [facility] [address] [id number] [place] [address] 5117 Jun, [facility] [place] [facility] [address] [id number] [place] [address]- 6978 Jun, [facility] [place] [facility] [address] [id number] [place] [address] 3294 Jun, [facility] [place] [facility] [address] [id number] [place] [address]- 3760 Jun, [facility] [place] [facility] [address] [id number] [place] [address]- 4676 Jun, [facility] [place] [facility] [address] [id number] [place] [address] 1944 19 Jun, 2014 [facility] [place] [facility] [address] [id number] [place] [address]- 1795 19 Jun, 2014 [facility] [place] [facility] [address] [id number] [place] [address]- 0492 18 Jun, 2014 [facility] [place] [facility] [address] [id number] [place] [address]- 0463 18 Jun, 2014 [facility] [place] [facility] [address] [id number] [place] [address]- 0546 17 Jun, 2014 [facility] [place] [facility] [address] [id number] [place] [address]- 2050 17 Jun, 2014 [facility] [place] [facility] [address] [id number] [place] [address]- 1808 16 Jun, 2014 [facility] [place] [facility] [address] [id number] [place] [address]- 4873 16 Jun, 2014 [facility] [place] [facility] [address] [id number] [place] [address]- 7082 16 Jun, 2014 [facility] [place] [facility] [address] [id number] [place] [address]- 1213 16 Jun, 2014 [facility] [place] [facility] [address] [id number] [place] [address]- 8125 16 Jun, 2014 [facility] [place] [facility] [address] [id number] [place] [address]- 5124 16 Jun, 2014 [facility] [place] [facility] [address] [id number] [place] [address]- 4598 13 Jun, 2014 [facility] [place] [facility] [address] [id number] [place] [address]- 0488 13 Jun, 2014 [facility] [place] [facility] [address] [id number] [place] [address]- 7486 12 Jun, 2014 [facility] [place] [facility] [address] [id number] [place] [address]- 3483 12 Jun, 2014 [facility] [place] [facility] [address] [id number] [place] [address]- 3128 09 Jun, 2014 [facility] [place] [facility] [address] [id number] [place] [address]- 6777 Jun, [facility] [place] [facility] [address] [id number] [place] [address]- 7585 Jun, [facility] [place] [facility] [address] [id number] [place] [address]- 5165 Jun, [facility] [place] [facility] [address] [id number] [place] [address]- 9505 Jun, [facility] [place] [facility] [address] [id number] [place] [address]- 0042 Jun, [facility] [place] [facility] [address] [id number] [place] [address]- 2800 Jun, [facility] [place] [facility] [address] [id number] [place] [address]- 6614 Jun, [facility] [place] [facility] [address] [id number] [place] [address]- 1344 Jun, [facility] [place] [facility] [address] [id number] [place] [address]- 3468 Jun, [facility] [place] [facility] [address] [id number] [place] [address]- 3190 Jun, [facility] [place] [facility] [address] [id number] [place] [address]- 4264 Jun, [facility] [place] [facility] [address] [id number] [place] [address]- 4419 Jun, [facility] [place] [facility] [address] [id number] [place] [address]- 4770 Jun, [facility] [place] [facility] [address] [id number] [place] [address]- 9005 Jun, [facility] [place] [facility] [address] [id number] [place] [address]- 1295 Jun, [facility] [place] [facility] [address] [id number] [place] [address]- 0832 May, [facility] [place] [facility] [address] [id number] [place] [address]- 9526 May, 2014 [facility] [place] [facility] [address] [id number] [place] [address]- 4896 May, 2014 [facility] [place] [facility] [address] [id number] [place] [address] 2546 May, 2014 [facility] [place] [facility] [address] [id number] [place] [address] 2546 May, 2014 [facility] [place] [facility] [address] [id number] [place] [address]- 254 24 May, 2014 [facility] [place] [facility] [address] [facility] [id number] [place] [address]- 1836 May, 2014 [facility] [place] [facility] [address] [facility] [id number] [place] [address]- 2274 May, 2014 [facility] [place] [facility] [address] [facility] [id number] [place] [address]- 7749 May, 2014 [facility] [place] [facility] [address] [facility] [id number] [place] [address]- 9971 May, 2014 [facility] [place] [facility] [address] [facility] [id number] [place] [address]- 5522 18 May, 2014 [facility] [place] [facility] [address] [facility] [id number] [place] [address]- 5744 18 May, 2014 [facility] [place] [facility] [address] [facility] [id number] [address] 2546 13 May, 2014 [facility] [place] [facility] [address] [facility] [id number] [place] [address]- 2546 13 May, 2014 [facility] [place] [facility] [address] [facility] [id number] [place] [address]- 2544 11 May, 2014 [facility] [place] [facility] [address] [facility] [id number] [place] [address]- 4276 11 May, 2014 [facility] [place] [facility] [address] [facility] [id number] [place] [address]- 7539 May, 2014 [facility] [place] [facility] [address] [id number] [place] [address]- 4996 May, 2014 [facility] [place] [facility] [address] [id number] [place] [address]- 1606 May, 2014 [facility] [place] [facility] [address] [id number] [place] [address]- 8660 May, 2014 [facility] [place] [facility] [address] [id number] [place] [address]- 0797 May, 2014 [facility] [place] [facility] [address] [id number] [place] [address]- 3209 May, 2014 [facility] [place] [facility] [address] [facility] [id number] [place] [address]- 7412 May, 2014 [facility] [place] [facility] [address] [facility] [id number] [place] [address]- 5224 May, 2014 [facility] [place] [facility] [address] [id number] [place] [address]- 4784 May, 2014 [facility] [place] [facility] [address] [facility] [id number] [place] [address]- 6355 May, 2014 [facility] [place] [facility] [address] [facility] [id number] [place] [address]- 7093 May, [facility] [place] [facility] [address] [facility] [id number], [place] [address]- 7691 Apr, [facility] [place] [facility] [address] [id number] [place] [address]- 6252 Apr, [facility] [place] [facility] [address] [id number] [place] [address]- 9748 Apr, [facility] [place] [facility] [address] [id number] [place] [address]- 6590 Apr, [facility] [place] [facility] [address] [facility] [id number], [place] [address]- 2176 Apr, [facility] [place] [facility] [address] [id number] [place] [address]- 2588 Apr, [facility] [place] [facility] [address] [id number] [place] [address]- 9038 Apr, [facility] [place] [facility] [address] [id number] [place] [address]- 9539 Apr, [facility] [place] [facility] [address] [id number] [place] [address]- 4022 Apr, [facility] [place] [facility] [address] [id number] [place] [address]- 2567 Apr, [facility] [place] [facility] [address] [id number] [place] [address]- 7874 Apr, [facility] [place] [facility] [address] [id number] [place] [address]- 4630 Apr, [facility] [place] [facility] [address] [id number], [place] [address]- 8839 Apr, [facility] [place] [facility] [address] [id number], [place] [address]- 4822 Apr, [facility] [place] [facility] [address] [id number] [place] [address]- 9729 Apr, [facility] [place] [facility] [address] [id number], [place] [address]- 9169 Apr, [facility] [place] [facility] [address] [id number], [place] [address]- 3212 Apr, [facility] [place] [facility] [address] [id number] [place] [address]- 4924 Apr, [facility] [place] [facility] [address] [id number], [place] [address]- 4589 Apr, [facility] [place] [facility] [address] [id number] [place] [address]- 8340 Apr, [facility] [place] [facility] [address] [id number] [place] [address]- 7143 Mar, [facility] [address] [id number] [place] [address]- 6116 Mar, [facility] [place] [facility] [address] [id number] [place] [address]- 4686 Mar, [facility] [address] [id number] [place] [address]- 8166 Mar, [facility] [address] [id number] [place] [address]- 3882 Mar, [facility] [address] [id number] [place] [address]- 8823 Mar, [facility] [address] [id number] [place] [address]- 5302 Mar, [facility] [address] [id number] [place] [address]- 1550 Mar, [facility] [address] [id number] [place] [address]- 4709 15 Mar, 2014 [facility] [place] [facility] [address] [id number] [place] [address]- 8891 15 Mar, 2014 [facility] [address] [id number] [place] [address]- 0562 15 Mar, 2014 [facility] [place] [facility] [address] [id number] [place] [address]- 3183 15 Mar, 2014 [facility] [place] [facility] [address] [id number] [place] [address]- 3060 Mar, [facility] [place] [facility] [address] [id number] [place] [address]- 0896 Mar, [facility] [place] [facility] [address] [id number] [place] [address]- 7037 Mar, [facility] [place] [facility] [address] [id number] [place] [address] Mar, [facility] [place] [facility] [address] [id number] [place] [address]- 8603 Feb, [facility] [place] [facility] [address] [id number] [place] [address]- 6332 Feb, [facility] [place] [facility] [address] [id number] [place] [address]- 0404 Feb, [facility] [place] [facility] [address] [id number] [place] [address]- 9915 Feb, [facility] [place] [facility] [address] [id number] [place] [address]- 2820 Feb, [facility] [place] [facility] [address] [id number] [place] [address]- 3340 Feb, [facility] [place] [facility] [address] [id number] [place] [address]- 0113 Feb, [facility] [place] [facility] [address] [id number] [place] [address]- 8894 Feb, [facility] [place] [facility] [address] [id number] [place] [address]- 8947 Feb, [facility] [place] [facility] [address] [id number] [place] [address]- 9343 Feb, [facility] [place] [facility] [address] [id number] [place] [address]- 3401 Feb, [facility] [place] [facility] [address] [id number], [place] [address]- 7662 17 Feb, 2014 [facility] [place] [facility] [address] [id number] [place] [address]- 9900 Feb, [facility] [place] [facility] [address] [id number] [place] [address]- 2426 14 Feb, 2014 [facility] [place] [facility] [address] [id number], [place] [address]- 3703 Feb, [facility] [place] [facility] [address] [id number], [place] [address]- 5653 Feb, [facility] [place] [facility] [address] [id number] [place] [address]- 9029 14 Feb, 2014 [facility] [place] [facility] [address] [id number] [place] [address]- 4689 Feb, [facility] [place] [facility] [address] [id number] [place] [address]- 4232 Feb, [facility] [place] [facility] [address] [id number] [place] [address]- 3272 Feb, [facility] [place] [facility] [address] [id number] [place] [address]- 1393 Feb, [facility] [place] [facility] [address] [id number] [place] [address]- 1152 Jan, [facility] [place] [facility] [address] [id number] [place] [address]- 9601 Jan, [facility] [place] [facility] [address] [id number] [place] [address]- 7721 Jan, [facility] [place] [facility] [address] [id number] [place] [address]- 6816 Jan, [facility] [place] [facility] [address] [id number] [place] [address]- 9539 Jan, [facility] [place] [facility] [address] [id number] [place] [address]- 1981 Jan, [facility] [place] [facility] [address] [id number], [place] [address]- 7573 Jan, [facility] [place] [facility] [address] [id number] [place] [address]- 3627 Jan, [facility] [place] [facility] [address] [id number] [place] [address]- 8391 Jan, [facility] [place] [facility] [address] [id number] [place] [address]- 8139 Jan, [facility] [place] [facility] [address] [id number] [place] [address]- 1084 17 Jan, 2013 [facility] [place] [facility] [address] [id number] [place] [address]- 0719 17 Jan, 2013 [facility] [place] [facility] [address] [id number] [place] [address]- 2878 17 Jan, 2013 [facility] [place] [facility] [address] [id number] [place] [address]- 3942 17 Jan, 2013 [facility] [place] [facility] [address] [id number] [place] [address]- 4940 15 Jan, 2013 [facility] [place] [facility] [address] [id number] [place] [address]- 6663 15 Jan, 2013 [facility] [place] [facility] [address] [id number] [place] [address]- 5420 14 Jan, 2013 [facility] [place] [facility] [address] [id number] [place] [address]- 0068 14 Jan, 2013 [facility] [place] [facility] [address] [id number] [place] [address]- 1418 13 Jan, 2013 [facility] [place] [facility] [address] [id number] [place] [address]- 8259 13 Jan, 2013 [facility] [place] [facility] [address] [id number] [place] [address]- 4631 13 Jan, 2013 [facility] [place] [facility] [address] [id number] [place] [address]- 2487 13 Jan, 2013 [facility] [place] [facility] [address] [id number] [place] [address]- 7327 10 Jan, 2013 [facility] [place] [facility] [address] [id number] [place] [address]- 6740 02 Jan, 2014 [facility] [place] [facility] [address] [id number] [place] 3939 02 Jan, 2014 [facility] [place] [facility] [address] [id number] [place]90 25 Sep, 2013 [facility] [place] [facility] [address] [id number] [place] [address]- 5004 25 Sep, 2013 [facility] [place] [facility] [address] [id number] [place] [address]- 2787 23 Sep, 2013 [facility] [place] [facility] [address] [id number] [place] [address]- 0692 23 Sep, 2013 [facility] [place] [facility] [address] [id number] [place] [address]- 4381 19 Sep, 2013 [facility] [place] [facility] [address] [id number] [place] [address]- 9281 19 Sep, 2013 [facility] [place] [facility] [address] [id number] [place] [address]- 1035 17 Sep, 2013 [facility] [place] [facility] [address] [id number] [place] [address]- 8963 17 Sep, 2013 [facility] [place] [facility] [address] [id number] [place] [address]- 0382 09 Sep, 2013 [facility] [place] [facility] [address] [id number] [place] [address]- 2741 09 Sep, 2013 [facility] [place] [facility] [address] [id number] [place] [address]- 8878 08 Sep, 2013 [facility] [place] [facility] [address] [id number], [place] [address]- 4099 08 Sep, 2013 [facility] [place] [facility] [address] [id number] [address]- 8138 04 Sep, 2013 [facility] [place] [facility] [address] [id number] [place] [address]- 5008 04 Sep, 2013 [facility] [place] [facility] [address] [id number] [place] [address]- 1427 02 Sep, 2013 [facility] [place] [facility] [address] [id number] [place] [address]- 5866 02 Sep, 2013 [facility] [place] [facility] [address] [id number] [place] [address]- 0614 Dec, [facility] [place] [facility] [address] [id number] [place] [address]- 4513 Dec, [facility] [place] [facility] [address] [id number] [place] [address]- 0498 Nov, [facility] [place] [facility] [address] [id number] [place] [address]- 1983 Nov, [facility] [place] [facility] [address] [id number] [place] [address]- 5309 Nov, [facility] [place] [facility] [address] [id number] [place] [address]- 0530 Nov, [facility] [place] [facility] [address] [id number] [place] [address]- 8053 Nov, [facility] [place] [facility] [address] [id number] [place] [address]- 5895 Nov, [facility] [place] [facility] [address] [id number] [place] [address]- 9611 Nov, [facility] [place] [facility] [address] [id number] [place] [address]- 8376 Nov, [facility] [place] [facility] [address] [id number] [place] [address]- 7450 Nov, [facility] [place] [facility] [address] [id number] [place] [address]- 7354 Nov, [facility] [place] [facility] [address] [id number] [place] [address]- 5845 Nov, [facility] [place] [facility] [address] [id number] [place] [address]- 8278 Nov, [facility] [place] [facility] [address] [id number] [place] [address]- 0738 Oct, [facility] [place] [facility] [address] [id number] [place] [address]- 7620 Oct, [facility] [place] [facility] [address] [id number] [place] [address] Oct, [facility] [place] [facility] [address] [id number] [place] [address] Oct, [facility] [place] [facility] [address] [id number] [place] [address] Oct, [facility] [place] [facility] [address] [id number] [place] [address] Oct, [facility] [place] [facility] [address] [id number] [place] [address] Oct, [facility] [place] [facility] [address] [id number] [place] [address] Oct, [facility] [place] [facility] [address] [id number] [place] [address] Oct, [facility] [place] [facility] [address] [id number] [place] [address] Oct, [facility] [place] [facility] [address] [id number] [place] [address] Oct, [facility] [place] [facility] [address] [id number] [place] [address] Oct, [facility] [place] [facility] [address] [id number] [place] [address] Oct, [facility] [place] [facility] [address] [id number] [place] [address] Oct, [facility] [place] [facility] [address] [id number] [place] [address] Oct, [facility] [place] [facility] [address] [id number] [place] [address] Oct, [facility] [place] [facility] [address] [id number] [place] [address] Oct, [facility] [place] [facility] [address] [id number] [place] [address] Sep, [facility] [place] [facility] [address] [id number] [place] [address] Sep, [facility] [place] [facility] [address] [id number] [place] [address] Sep, [facility] [place] [facility] [address] [id number] [place] [address]797 Sep, [facility] [place] [facility] [address] [id number] [place] [address]- [address] Sep, [facility] [place] [facility] [address] [id number] [place] [address]44 Sep, [facility] [place] [facility] [address] [id number] [place] [address] Sep, [facility] [place] [address] [id number] [place] [address] 37[address] Sep, [facility] [place] [facility] [address] [id number] [place] [address] 1438 Sep, [facility] [place] [facility] [address] [id number] [place] [address] Sep, [facility] [place] [address] [id number] [place] [address] Sep, [facility] [address] [id number] [address] Sep, [facility] [place] [address] [id number], [place] [address] Sep, [facility] [address] [id number] [place] [address]- [address]42 Sep, [facility] [address] [id number] [place] [address] 09 Sep, 2013 [facility] [address] [id number] [place] [address] Sep, [facility] [address] [id number] [place] [address] Sep, [facility] [address] [id number] [place] [address]97 Sep, [facility] [address] [id number] [place] [address] 78[address] Sep, [facility] [address] [id number] [place] [address] Sep, [facility] [address] [id number] [place] [address]842 Sep, [facility] [address] [id number] [place] [address] 18[address] Sep, [facility] [address] [id number] [place] [address] August, [facility] [address] [id number] [place] [address] August, [facility] [address] [id number] [place] [address]47 August, [facility] [address] [id number] [place] [address]- [address] August, [facility] [address] [id number] [place] [address] 7914 August, [facility] [address] [id number] [place] [address] August, [facility] [address] [id number] [place] [address] August, [facility] [address] [id number] [place] [address] August[facility] [address] [id number] [place] [address] August, [facility] [address] [id number] [place] [address] August, [facility] [place] [facility] [address] [id number] [place] [address]- 49[address] August, [facility] [address] [id number] [place] [address]- [address]672 Jul, [facility] [address] [id number] [place] [address]- [address] Jul, [facility] [place] [facility] [address] [id number] [place] [address]- [address]01 Jul, [facility] [address] [id number] [place] [address]- [address]657 Jul, [facility] [facility] [address] [id number] [place] [address]- 5937 Jul, [facility] [facility] [address] [id number] [place] [address] 9824 Jul, [facility] [facility] [address] [id number] [place] [address]- 4477 Jul, [facility] [address] [id number] [place] [address]- 8267 Jul, [facility] [address] [id number] [place] [address]- 9293 Jul, [facility] [address] [id number] [place] [address]- [address]662 Jul, [facility] [address] [id number] [place] [address]- 7916 16 Jul, 2013 [facility] [address] [id number] [place] [address]- 9485 Jul, [facility] [address] [id number] [place] [address] Jul, [facility] [address] [id number] [place] [address]- 2989 Jul, [facility] [address] [id number] [place] [address]- 8286 Jul, [facility] [address] [id number] [place] [address]- 9544 Jul, [facility] [address] [id number] [place] [address]- [address]345 Jul, [facility] [address] [id number] [place] [address]- 0671 Jul, [facility] [address] [id number] [place] [address]- [address]19 Jul, [facility] [address] [id number] [place] [address] Jul, [facility] [place] [facility] [address] [id number] [place] [address] 1607 Jul, [facility] [place] [facility] [address] [id number] [place] [address] 2727 Jul, [facility] [place] [facility] [address] [id number] [place] [address] 0786 Jul, [facility] [place] [facility] [address] [id number] [place] [address] 6333 Jun, [facility] [place] [facility] [address] [id number] [place] [address] 4376 Jun, [facility] [place] [facility] [address] [id number] [place] [address]- 0352 Jun, [facility] [place] [facility] [address] [id number] [place] [address] 9395 Jun, [facility] [place] [facility] [address] [id number] [place] [address] 4983 Jun, [facility] [place] [facility] [address] [id number] [place] [address] 7080 Jun, [facility] [place] [facility] [address] [id number] [place] [address] 0309 Jun, [facility] [place] [facility] [address] [id number] [place] [address] 1474 Jun, [facility] [place] [facility] [address] [id number] [place] [address]- 3347 18 Jun, 2013 [facility] [place] [facility] [address] [id number] [place] [address]- 1731 18 Jun, 2013 [facility] [place] [facility] [address] [id number] [place] [address]- 0814 Jun, [facility] [place] [facility] [address] [id number] [place] [address] 8236 Jun, [facility] [place] [facility] [address] [id number] [place] [address] 5860 18 May, 2013 [facility] [place] [facility] [address] [id number] [place] [address]- 9776 May, [facility] [place] [facility] [address] [id number] [place] [address]- 9391 Apr, [facility] [place] [facility] [address] [id number] [place] [address]- 6306 Apr, [facility] [place] [facility] [address] [id number] [place] [address]- 5818 30 Apr, 2013 [facility] [place] [facility] [address] [id number] [place] [address]- 2660 Apr, [facility] [place] [facility] [address] [id number] [place] [address] 8143 Apr, [facility] [place] [facility] [address] [id number] [place] [address]- 9704 27 Apr, 2013 [facility] [place] [facility] [address] [id number] [place] [address]- 4091 Apr, [facility] [place] [facility] [address] [id number] [place] [address]- 3332 20 Apr, 2013 [facility] [place] [facility] [address] [id number] [place] [address]- 9148 Apr, [facility] [address] [id number] [place] [address]- 1770 Apr, [facility] [place] [facility] [address] [id number] [place] [address]- 0060 Apr, [facility] [place] [facility] [address] [id number] [place] [address] Mar, [facility] [place] [facility] [address] [id number] [place] [address] 4849 Mar, [facility] [place] [facility] [address] [id number] [place] [address]- 6343 Mar, [facility] [place] [facility] [address] [id number] [place] [address]- 9851 Mar, [facility] [place] [facility] [address] [id number] [place] [address]- 0527 Feb, [facility] [place] [facility] [address] [id number] [address]- 7118 Feb, [facility] [place] [facility] [address] [id number], [place] [address] 5117 Feb, [facility] [place] [facility] [address] [id number] [address]- 1461 Feb, [facility] [place] [facility] [address] [id number], [place] [address]- 5524 Feb, [facility] [place] [facility] [address] [id number], [place] [address]- 7282 Feb, [facility] [place] [facility] [address] [id number], [place] [address]- 6756 Feb, [facility] [place] [facility] [address] [id number] [address]- 2360 Feb, [facility] [place] [facility] [address] [id number], [place] [address]- 7394 Feb, [facility] [place] [facility] [address] [id number] [place] [address]- 7193 Feb, [facility] [place] [facility] [address] [id number] [place] [address]- 5997 Feb, [facility] [place] [facility] [address] [id number] [place] [address]- 7039 Jan, [facility] [place] [facility] [address] [id number] [place] [address]- 1166 Jan, [facility] [place] [facility] [address] [id number] [place] [address]- 3953 Jan, [facility] [place] [facility] [address] [id number] [place] [address]- 0623 Jan, [facility] [place] [facility] [address] [id number] [place] [address]- 1774 Jan, [facility] [place] [facility] [address] [id number] [place] [address]- 2988 Jan, [facility] [place] [facility] [address] [id number] [place] [address]- 5327 Jan, [facility] [place] [facility] [address] [id number] [place] [address]- 5911 Jan, [facility] [place] [facility] [address] [id number] [place] [address]- 1237 30 Sep, 2012 [facility] [place] [facility] [address] [id number] [place] [address]- 8067 25 Sep, 2012 [facility] [place] [facility] [address] [id number] [place] [address]- 1425 18 Sep, 2012 [facility] [place] [facility] [address] [id number] [place] [address]- 0261 17 Sep, 2012 [facility] [place] [facility] [address] [id number] [place] [address]- 2549 17 Sep, 2012 [facility] [place] [facility] [address] [id number] [place] [address]- 7269 16 Dec, 2012 [facility] [place] [facility] [address] [id number] [place] [address]- 4389 13 Dec, 2012 [facility] [place] [facility] [address] [id number] [place] [address]- 2113 11 Dec, 2012 [facility] [place] [facility] [address] [id number] [place] [address]- 4686 05 Dec, 2012 [facility] [place] [facility] [address] [id number] [place] [address]- 7373 04 Dec, 2012 [facility] [address] [id number] [place] [address]- 0120 30 Nov, 2012 [facility] [place] [facility] [address] [id number] [place] [address]- 5470 Nov, [facility] [address] [id number] [place] [address]- 8821 Nov, [facility] [address] [id number] [place] [address]- 7470 Nov, [facility] [place] [facility] [address] [id number] [place] [address]- 4490 Nov, [facility] [place] [facility] [address] [id number] [place] [address]- 1411 Nov, [facility] [place] [facility] [address] [id number] [place] [address]- 0526 Nov, [facility] [place] [facility] [address] [id number] [place] [address]- 1584 Oct, [facility] [place] [facility] [address] [id number] [place] [address]- 9161 Oct, [facility] [place] [facility] [address] [id number] [place] [address]- 5458 Oct, [facility] [place] [facility] [address] [id number] [place] [address]- 3201 Oct, [facility] [place] [facility] [address] [id number] [place] [address]- 4196 15 Oct, 2012 [facility] [address] [id number] [place] [address]- 9824 Oct, [facility] [place] [facility] [address] [id number] [place] [address]- 5910 Sep, [facility] [place] [facility] [address] [id number] [place] [address]- 2518 Sep, [facility] [place] [facility] [address] [id number] [place] [address]- 6379 Sep, [facility] [place] [facility] [address] [id number] [place] [address]- 8395 14 Sep, 2012 [facility] [place] [facility] [address] [id number] [place] [address]- 0940 Sep, [facility] [place] [facility] [address] [id number] [place] [address]- 1517 Sep, [facility] [place] [facility] [address] [id number] [place] [address]- 1267 Sep, [facility] [place] [facility] [address] [id number] [place] [address]- 8709 Sep, [facility] [place] [facility] [address] [id number] [place] [address]- 9603 Sep, [facility] [place] [facility] [address] [id number] [place] [address]- 8953 August, [facility] [place] [facility] [address] [id number] [place] [address]- 2845 August, [facility] [place] [facility] [address] [id number] [place] [address]- 5893 August, [facility] [place] [facility] [address] [id number] [place] [address]- 9745 August, [facility] [place] [facility] [address] [id number] [place] [address]- 8721 August, [facility] [place] [facility] [address] [id number] [place] [address]- 2546 August, [facility] [address] [id number] [place] [address]- 9976 August, [facility] [address] [id number] [place] [address]- 2546 August, [facility] [address] [id number] [place] [address]- 7676 Jul, [facility] [address] [id number] [place] [address]- 6376 Jul, [facility] [address] [place] [id number] Jul [facility] [address] [id number] [place] [address]- 4126 Jun, [facility] [address] [id number] [place] [address]- 9686 Jun, [facility] [address] [id number] [place] [address]- 7786 Jun, [facility] [address] [id number] [place] [address]- 1506 Jun, [facility] [address] [facility] [id number] [place] [address]- 1966 Jun, [facility] [address] [id number] [place] [address]- 2546 Jun, [facility] [address] [id number] [place] [address]- 2546 May, [facility] [address] [id number] [place] [address]- 0966 May, [facility] [address] [id number] [place] [address]- 2546 May, [facility] [address] [id number] [place] [address]- 2546 May, [facility] [place] [facility] [address] [id number] [place] [address]- 9539 May, [facility] [address] [id number] [place] [address]- 8064 Apr, [facility] [address] [id number] [place] [address]- 0562 Apr, [facility] [address] [id number] [place] [address]- 5025 Apr, [facility] [address] [id number] [place] [address]- 9430 Apr, [facility] [address] [id number] [place] [address]- 3141 Apr, [facility] [address] [id number] [place] [address]- 5708 Apr, [facility] [address] [id number] [place] [address]- 1906 Mar, [facility] [address] [id number] [place] [address]- 8975 Mar, [facility] [address] [id number] [place] [address]- 1216 Mar, [facility] [address] [id number] [place] [address]- 5335 Mar, [facility] [address] [id number] [place] [address]- 7001 Mar, [facility] [place] [facility] [address] [id number] [place] [address] 18 Mar, 2012 [facility] [place] [facility] [address] [id number] [place] [address]- 3426 18 Mar, 2012 [facility] [place] [facility] [address] [id number] [place] [address]- 6782 10 Mar, 2012 [facility] [place] [facility] [address] [id number] [address]- 7962 Mar, [facility] [place] [facility] [address] [id number] [place] [address]- 3195 Mar, [facility] [place] [facility] [address] [id number] [place] [address]- 6269 Mar, [facility] [place] [facility] [address] [id number] [place] [address]- 5836 Feb, [facility] [place] [facility] [address] [id number] [place] [address]- 0283 Feb, [facility] [place] [facility] [address] [id number] [place] [address]- 7673 Feb, [facility] [place] [facility] [address] [id number] [place] [address]- 7861 Feb, [facility] [place] [facility] [address] [id number] [address]- 0293 Feb, [facility] [place] [facility] [address] [id number] [place] [address]- 1373 Feb, [facility] [place] [facility] [address] [id number] [place] [address]- 3187 Feb, [facility] [place] [facility] [address] [facility] [id number] [place] [address]- 5146 Feb, [facility] [place] [facility] [address] [id number], [place] [address]- 1692 Feb, [facility] [place] [facility] [address] [id number], [place] [address]- 0249 Feb, [facility] [place] [facility] [address] [id number], [place] [address]- 0984 Feb, [facility] [place] [facility] [address] [id number] [place] [address]- 0130 Jan, [facility] [place] [facility] [address] [facility] [id number] [place] [address]- 7977 Jan, [facility] [place] [facility] [address] [id number] [place] [address]- 4404 Jan, [facility] [place] [facility] [address] [id number] [place] [address]- 6004 Jan, [facility] [place] [facility] [address] [id number] [place] [address]- 7236 Jan, [facility] [place] [facility] [address] [id number] [place] [address]- 1416 Jan, [facility] [place] [facility] [address] [id number] [place] [address]- 1026 Jan, [facility] [place] [facility] [address] [id number] [place] [address]- 1810 24 Dec, 2011 [facility] [place] [facility] [address] [id number] [place] [address]- 3291 17 Dec, 2011 [facility] [place] [facility] [address] [id number] [place] [address]- 9085 13 Dec, 2011 [facility] [place] [facility] [address] [id number] [place] [address]- 5896 12 Dec, 2011 [facility] [place] [facility] [address] [id number] [place] [address]- 9550 Nov, [facility] [place] [facility] [address] [id number] [place] [address]- 3047 Nov, [facility] [place] [facility] [address] [id number] [place] [address]- 8590 17 Nov, 2011 [facility] [place] [facility] [address] [id number] [place] [address]- 9200 15 Nov, 2011 [facility] [place] [facility] [address] [id number] [place] [address]- 6237 14 Nov, 2011 [facility] [place] [facility] [address] [id number] [place] [address]- 1126 13 Nov, 2011 [facility] [place] [facility] [address] [id number] [place] [address]- 5589 Nov, [facility] [place] [facility] [address] [id number] [place] [address]- 5344 Nov, [facility] [place] [facility] [address] [id number] [place] [address]- 8374 Nov, [facility] [place] [facility] [address] [id number] [place] [address]- 2526 Nov, [facility] [place] [facility] [address] [id number] [place] [address]- 3809 Nov, [facility] [place] [facility] [address] [id number] [place] [address]- 4397 Nov, [facility] [place] [facility] [address] [id number] [place] [address]- 2539 Nov, [facility] [place] [facility] [address] [id number] [place] [address]- 2185 Oct, [facility] [place] [facility] [address] [id number] [place] [address]- 7317 Oct, [facility] [place] [facility] [address] [id number] [place] [address]- 2763 Oct, [facility] [place] [facility] [address] [id number] [place] [address]- 0627 Oct, [facility] [place] [facility] [address] [id number] [place] [address]- 0404 Oct, [facility] [place] [facility] [address] [id number] [place] [address]- 7630 Oct, [facility] [place] [facility] [address] [id number] [place] [address]- 0924 Oct, [facility] [place] [facility] [address] [id number] [place] [address]- 1086 Oct, [facility] [place] [facility] [address] [id number] [place] [address]- 6215 Oct, [facility] [place] [facility] [address] [id number] [place] [address]- 6839 Sep, [facility] [place] [facility] [address] [id number] [place] [address]- 4755 Sep, [facility] [place] [facility] [address] [id number] [place] [address]- 2006 Sep, [facility] [place] [facility] [address] [id number] [place] [address]- 5146 Sep, [facility] [place] [facility] [address] [id number] [place] [address]- 5353 Sep, [facility] [place] [facility] [address] [id number] [place] [address]- 8590 Sep, [facility] [place] [facility] [address] [id number] [place] [address]- 0121 Sep, [facility] [place] [facility] [address] [id number] [place] [address]- 9597 Sep, [facility] [place] [facility] [address] [id number] [place] [address]- 1923 August, [facility] [place] [facility] [address] [id number] [place] [address]- 5453 August, [facility] [place] [facility] [address] [id number] [place] [address]- 0366 August, [facility] [place] [facility] [address] [id number] [place] [address]- 4891 August, [facility] [place] [facility] [address] [id number] [place] [address]- 0819 August, [facility] [place] [facility] [address] [id number] [place] [address]- 0873 August, [facility] [place] [facility] [address] [id number] [place] [address]- 4916 August, [facility] [place] [facility] [address] [id number] [place] [address]- 6777 August, [facility] [place] [facility] [address] [facility] [id number] [place] [address]- 6427 August, [facility] [address] [facility] [id number] [address]233 August, [facility] [address] [facility] [id number], [place] [address]- 9341 August, [facility] [address] [facility] [id number] [address]071 August, [facility] [address] [facility] [id number], [place] [address]- 9351 Oct, IMMUNIZATIONS No Known Immunizations SOCIAL HISTORY Never Assessed REASON FOR VISIT Requests return call PLAN OF CARE VITAL SIGNS MEDICATIONS Medication Instructions Dosage Frequency Start Date End Date Duration Status Sucralfate 1 GM Orally 4 times a day 1 tablet before meals and at bedtime 6h 30 days Active RESULTS No Results [...] Surgical History bladder surgery Hospitalization History [facility] for right groin pain 05/2011 Hospitalization History [facility] for wound on buttocks 08/2012 Hospitalization History [facility], hypoxia secondary to pneumonia 12/02-12/09 Hospitalization History Pneumonia, elevated CO2 on Bipap was in ICU 08/2013 Hospitalization History Hypoxia, Exacerbation COPD, Chest pain 09/05/15 Hospitalization History suicidal ideations-[facility] 12/28 Hospitalization History hypoxia--[facility] 02/13/2016 Hospitalization History shortness of breath at june 2016 Hospitalization History Shortness of breath at august 2016 Hospitalization History SOB, chest pain at 12/2016
--- OUTSIDE RECORDS SUMMARY | 2018-02-11 13:42 | XMS REPORT ---
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 [id number] [place] [address] 20768- 6446 Mar, [facility] [id number], [place] [address]- 3746 Mar, [facility] [id number] [address] Mar, Dental examination Z01.20 [facility] [id number] [place] [address] 00107- 5170 Mar, Chronic diarrhea K52.9 ; Intractable vomiting with nausea, vomiting of unspecified type R11.2 ; Cellulitis, unspecified cellulitis site L03.90 ; Type 2 diabetes mellitus with diabetic polyneuropathy E11.42 and Postinflammatory hyperpigmentation L81.0 [facility] [id number] [place] [address] 45526- 4190 Mar, Unspecified mood [affective] disorder F39 [facility] [id number] [place] [address] 94769- 1992 Mar, Unspecified mood [affective] disorder F39 [facility] [id number] [place] [address] 82996- 6267 Mar, [facility] [id number] [place] [address] 92502- 7048 Mar, [facility] [id number] [place] [address] 88772- 2052 Mar, [facility] [id number] [place] [address] 71707- 9570 Mar, [facility] [id number] [place] [address] 86741- 6851 Mar, [facility] [id number] [place] [address] 12391- 8077 Mar, [facility] [id number], [place] [address]- 4986 Feb, Unspecified mood [affective] disorder F39 [facility] [id number] [place] [address] 11644- 2588 Feb, [facility] [id number] [place] [address] 00891- 7549 Feb, [facility] [id number] [place] [address] 16407- 6448 Jan, Unspecified mood [affective] disorder F[address] [id number] [id number] Jan, Encounter for dental examination Z01.20 [facility] [id number] [place] [address] 75842- 7126 Jan, [facility] [id number] [place] [address] 79700- 4049 Jan, [facility] [id number] [place] [address] 84545- 3564 Jan, [facility] [id number] [place] [address] 65028- 2538 Jan, [facility] [id number] [place] [address] 32612- 6861 Jan, [facility] [id number] [place] [address] 53087- 3747 Jan, Abdominal abscess K65.1 and Dental caries K02.9 [facility] [id number] [place] [address] 62159- 8763 Jan, [facility] [id number] [place] [address] 74863- 0446 Dec, Diabetes with neurological manifestations, type II or unspecified type, not stated as uncontrolled 250.60 ; Essential hypertension, benign 401.1 ; Concussion 850.9 and Skin texture changes 782.8 [facility] [id number] [place] [address] 66097- 5866 Dec, [facility] [id number] [place] [address] 74236- 6772 Dec, [facility] [address] [facility] [id number] [address] 2546 22 Dec, 2014 [facility] [id number], [place] [address] 2546 21 Dec, 2014 [facility] [id number], [place] [address] 2546 17 Dec, 2014 Affective disorder 296.90 [facility] [id number] [place] [address] 00772 2546 14 Sep, 2014 [facility] [id number], [place] [address] 2546 10 Dec, 2014 Affective disorder 296.90 [facility] [id number], [place] [address] 2546 04 Dec, 2014 [facility] [id number], [place] [address] 2546 04 Dec, 2014 [facility] [id number], [place] [address] 2546 04 Dec, 2014 [facility] [id number], [place] [address] 2546 Dec, 2014 [facility] [id number], [place] [address] 2546 Nov, Affective disorder 296.90 [facility] [id number], [place] [address] 2546 Nov, 2014 [facility] [id number], [place] [address] 2546 Nov, Affective disorder 296.90 [facility] [id number], [place] [address] 2546 Nov, Diarrhea 787.91 [facility] [id number], [place] [address] 2546 Nov, [facility] [id number], [place] [address]- 2546 Nov, Diarrhea 787.91 [facility] [id number], [place] [address] 2546 Nov, Diarrhea 787.91 and Hyperlipidemia 272.4 [facility] [id number] [place] [address] 18840 2546 Nov, Diarrhea 787.91 [facility] [id number] [place] [address] 98430 2546 Nov, Affective disorder 296.90 [facility] [id number] [place] [address] 62598 2546 Nov, Affective disorder 296.90 [facility] [id number] [place] [address] 65538 2546 Nov, Affective disorder 296.90 [facility] [id number] [place] [address] 45816- 4412 Nov, [facility] [id number] [place] [address] 54100 2543 Nov, [facility] [id number] [place] [address] 96593- 6867 Nov, [facility] [id number] [place] [address] 62151- 1246 Nov, Episodic mood disorder 296.90 [facility] [id number], [place] [address] 2545 Nov, [facility] [id number], [place] [address] 2547 Nov, [facility] [id number] [place] [address] 06248 2548 Nov, [facility] [id number] [place] [address] 95871 254 Nov, [facility] [id number], [place] [address]- 254 Nov, [facility] [id number], [place] [address]- 9245 Nov, Lymphedema 457.1 ; Hyperlipidemia 272.4 ; Essential hypertension, benign 401.1 and Numbness of toes 782.0 [facility] [id number] [place] [address]- 5418 Nov, Episodic mood disorder 296.90 [facility] [id number] [place] [address]- 7821 Oct, [facility] [id number], [place] [address]- 1235 Oct, [facility] [id number], [place] [address]- 2761 Oct, [facility] [id number], [place] [address]- 5650 Oct, [facility] [id number], [place] [address]- 0431 Oct, [facility] [id number], [place] [address]- 0787 Oct, [facility] [id number], [place] [address]- 4199 Oct, [facility] [id number], [place] [address]- 0435 Oct, [facility] [id number]- 3944 Oct, Episodic mood disorder 296.90 [facility] [id number], [place] [address]- 6749 Sep, [facility] [id number]- 3674 Sep, [facility] [id number]- 8386 Sep, [facility] [id number], [place] [address]- 5115 Sep, [facility] [id number], [place] [address]- 9480 Sep, [facility] [id number], [place] [address]- 2827 Sep, Episodic mood disorder 296.90 [facility] [id number], [place] [address]- 3485 Sep, Unspecified episodic mood disorder 296.90 [facility] [id number], [place] [address]- 8362 Sep, [facility] [id number], [place] [address]- 9021 Sep, [facility] [id number], [place] [address]- 1079 16 Sep, 2014 Episodic mood disorder 296.90 [facility] [id number], [place] [address]- 7706 Sep, [facility] [id number], [place] [address]- 3310 Sep, [facility] [id number], [place] [address]- 5747 Sep, [facility] [id number], [place] [address]- 2617 Sep, Hematemesis 578.0 and Vomiting 787.03 [facility] [id number], [place] [address]- 4131 09 Sep, 2014 Episodic mood disorder 296.90 [facility] [id number], [place] [address]- 7744 08 Sep, 2014 [facility] [id number], [place] [address]- 4442 Sep, [facility] [id number], [place] [address]- 2571 Sep, Diabetes mellitus without mention of complication, type II or unspecified type, not stated as uncontrolled 250.00 and Other chronic pain 338.29 [facility] [id number]- 6884 Sep, Episodic mood disorder 296.90 [facility] [id number]- 4023 Sep, [facility] [id number] 7840 Sep, Episodic mood disorder 296.90 [facility] [id number]- 7005 Sep, [facility] [id number], [place] [address]- 8157 August, [facility] [id number], [place] [address]- 8858 August, [facility] [id number], [place] [address]- 1011 August, Episodic mood disorder 296.90 [facility] [id number], [place] [address]- 9517 August, [facility] [id number], [place] [address]- 5669 August, Unspecified episodic mood disorder 296.90 [facility] [id number], [place] [address]- 9222 August, Vomiting 787.03 [facility] [id number], [place] [address]- 0569 August, [facility] [id number] [address]- 7991 August, [facility] [id number] 8571 August, [facility] [id number], [place] [address]- 6462 August, [facility] [place] [facility] [address] [id number] [place] [address]- 4343 August, [facility] [place] [facility] [address] [id number] [place] [address]- 2218 Jul, [facility] [place] [facility] [address] [id number] [place] [address]- 9505 Jul, [facility] [place] [facility] [address] [id number] [place] [address]- 2749 Jul, [facility] [place] [facility] [address] [id number] [place] [address]- 8442 30 Jun, 2014 [facility] [place] [facility] [address] [id number] [place] [address] Jun, [facility] [place] [facility] [address] [id number] [place] [address] Jun, [facility] [place] [facility] [address] [id number] [place] [address] Jun, [facility] [place] [facility] [address] [id number] [place] [address] Jun, [facility] [place] [facility] [address] [id number] [place] [address] Jun, [facility] [place] [facility] [address] [id number] [place] [address] Jun, [facility] [place] [facility] [address] [id number] [place] [address] 30 Jun, 2014 [facility] [place] [facility] [address] [id number] [place] [address] Jun, [facility] [place] [facility] [address] [id number] [place] [address] Jun, [facility] [place] [facility] [address] [id number] [place] [address] Jun, [facility] [place] [facility] [address] [id number] [place] [address] Jun, [facility] [place] [facility] [address] [id number] [place] [address] Jun, [facility] [place] [facility] [address] [id number] [place] [address] Jun, [facility] [place] [facility] [address] [id number] [place] [address] Jun, [facility] [place] [facility] [address] [id number] [place] [address] Jun, [facility] [place] [facility] [address] [id number] [place] [address] Jun, [facility] [place] [facility] [address] [id number] [place] [address]- [address] Jun, [facility] [place] [facility] [address] [id number] [place] [address] Jun, [facility] [place] [facility] [address] [id number] [place] [address]- [address] Jun, [facility] [place] [facility] [address] [id number] [place] [address] Jun, [facility] [place] [facility] [address] [id number] [place] [address]- [address] Jun, [facility] [place] [facility] [address] [id number] [place] [address] Jun, [facility] [place] [facility] [address] [id number] [place] [address] 7968 Jun, [facility] [place] [facility] [address] [id number] [place] [address]- [address] Jun, [facility] [place] [facility] [address] [id number] [place] [address] 19 Jun, 2014 [facility] [place] [facility] [address] [id number] [place] [address] 19 Jun, 2014 [facility] [place] [facility] [address] [id number] [place] [address] 18 Jun, 2014 [facility] [place] [facility] [address] [id number] [place] [address] 18 Jun, 2014 [facility] [place] [facility] [address] [id number] [place] [address] 17 Jun, 2014 [facility] [place] [facility] [address] [id number] [place] [address] 17 Jun, 2014 [facility] [place] [facility] [address] [id number] [place] [address] 16 Jun, 2014 [facility] [place] [facility] [address] [id number] [place] [address] 16 Jun, 2014 [facility] [place] [facility] [address] [id number] [place] [address]4 16 Jun, 2014 [facility] [place] [facility] [address] [id number] [place] [address] 8296 16 Jun, 2014 [facility] [place] [facility] [address] [id number] [place] [address] 3607 16 Jun, 2014 [facility] [place] [facility] [address] [id number] [place] [address] 3551 16 Jun, 2014 [facility] [place] [facility] [address] [id number] [place] [address] 8107 13 Jun, 2014 [facility] [place] [facility] [address] [id number] [place] [address]- 0889 13 Jun, 2014 [facility] [place] [facility] [address] [id number] [place] [address]- 2970 12 Jun, 2014 [facility] [place] [facility] [address] [id number] [place] [address]- 1415 12 Jun, 2014 [facility] [place] [facility] [address] [id number] [place] [address]- 1605 09 Jun, 2014 [facility] [place] [facility] [address] [id number] [place] [address]- 2576 Jun, [facility] [place] [facility] [address] [id number] [place] [address]- 1133 Jun, [facility] [place] [facility] [address] [id number] [place] [address]- 1709 Jun, [facility] [place] [facility] [address] [id number] [place] [address]- 6304 Jun, [facility] [place] [facility] [address] [id number] [place] [address]- 0275 Jun, [facility] [place] [facility] [address] [id number] [place] [address]- 1022 Jun, [facility] [place] [facility] [address] [id number] [place] [address]- 6118 Jun, [facility] [place] [facility] [address] [id number] [place] [address]- 8913 Jun, [facility] [place] [facility] [address] [id number] [place] [address]- 7839 Jun, [facility] [place] [facility] [address] [id number] [place] [address]- 2304 Jun, [facility] [place] [facility] [address] [id number] [place] [address]- 5651 Jun, [facility] [place] [facility] [address] [id number] [place] [address]- 8886 Jun, [facility] [place] [facility] [address] [id number] [place] [address]- 5506 Jun, [facility] [place] [facility] [address] [id number] [place] [address]- 8965 Jun, [facility] [place] [facility] [address] [id number] [place] [address]- 7434 Jun, [facility] [place] [facility] [address] [id number] [place] [address]- 6655 May, [facility] [place] [facility] [address] [id number] [place] [address]- 8876 May, 2014 [facility] [place] [facility] [address] [id number] [place] [address]- 4056 May, 2014 [facility] [place] [facility] [address] [id number] [place] [address] 2546 May, 2014 [facility] [place] [facility] [address] [id number] [place] [address] 2546 May, 2014 [facility] [place] [facility] [address] [id number] [place] [address]- 2547 24 May, 2014 [facility] [place] [facility] [address] [facility] [id number] [place] [address]- 7886 May, 2014 [facility] [place] [facility] [address] [facility] [id number] [place] [address]- 0536 May, 2014 [facility] [place] [facility] [address] [facility] [id number] [place] [address]- 4806 May, 2014 [facility] [place] [facility] [address] [facility] [id number] [place] [address]- 7754 May, 2014 [facility] [place] [facility] [address] [facility] [id number] [place] [address]- 3696 18 May, 2014 [facility] [place] [facility] [address] [facility] [id number] [place] [address]- 7445 18 May, 2014 [facility] [place] [facility] [address] [facility] [id number] [address]- 2546 13 May, 2014 [facility] [place] [facility] [address] [facility] [id number] [place] [address]- 2546 13 May, 2014 [facility] [place] [facility] [address] [facility] [id number] [place] [address]- 2548 11 May, 2014 [facility] [place] [facility] [address] [facility] [id number] [place] [address]- 5326 11 May, 2014 [facility] [place] [facility] [address] [facility] [id number] [place] [address]- 2255 May, 2014 [facility] [place] [facility] [address] [id number] [place] [address]- 4534 May, 2014 [facility] [place] [facility] [address] [id number] [place] [address]- 6076 May, 2014 [facility] [place] [facility] [address] [id number] [place] [address]- 7652 May, 2014 [facility] [place] [facility] [address] [id number] [place] [address]- 3275 May, 2014 [facility] [place] [facility] [address] [id number] [place] [address]- 7683 May, 2014 [facility] [place] [facility] [address] [facility] [id number] [place] [address]- 7593 May, 2014 [facility] [place] [facility] [address] [facility] [id number] [place] [address]- 5086 May, 2014 [facility] [place] [facility] [address] [id number] [place] [address]- 2700 May, 2014 [facility] [place] [facility] [address] [facility] [id number] [place] [address]- 5306 May, 2014 [facility] [place] [facility] [address] [facility] [id number] [place] [address]- 4376 May, [facility] [place] [facility] [address] [facility] [id number], [place] [address]- 8454 Apr, [facility] [place] [facility] [address] [id number] [place] [address]- 2063 Apr, [facility] [place] [facility] [address] [id number] [place] [address]- 3870 Apr, [facility] [place] [facility] [address] [id number] [place] [address]- 5704 Apr, [facility] [place] [facility] [address] [facility] [id number], [place] [address] 9806 Apr, [facility] [place] [facility] [address] [id number] [place] [address]- 0378 Apr, [facility] [place] [facility] [address] [id number] [place] [address]- 1194 Apr, [facility] [place] [facility] [address] [id number] [place] [address]- 9185 Apr, [facility] [place] [facility] [address] [id number] [place] [address]- 6444 Apr, [facility] [place] [facility] [address] [id number] [place] [address]- 0433 Apr, [facility] [place] [facility] [address] [id number] [place] [address]- 8826 Apr, [facility] [place] [facility] [address] [id number] [place] [address]- 1396 Apr, [facility] [place] [facility] [address] [id number], [place] [address]- 4162 Apr, [facility] [place] [facility] [address] [id number], [place] [address]- 6694 Apr, [facility] [place] [facility] [address] [id number] [place] [address]- 2706 Apr, [facility] [place] [facility] [address] [id number], [place] [address]- 5637 Apr, [facility] [place] [facility] [address] [id number], [place] [address]- 6731 Apr, [facility] [place] [facility] [address] [id number] [place] [address]- 3616 Apr, [facility] [place] [facility] [address] [id number], [place] [address]- 6319 Apr, [facility] [place] [facility] [address] [id number] [place] [address]- 2806 Apr, [facility] [place] [facility] [address] [id number] [place] [address]- 9921 Mar, [facility] [address] [id number] [place] [address]- 3776 Mar, [facility] [place] [facility] [address] [id number] [place] [address]- 7486 Mar, [facility] [address] [id number] [place] [address]- 0656 Mar, [facility] [address] [id number] [place] [address]- 8896 Mar, [facility] [address] [id number] [place] [address]- 1443 Mar, [facility] [address] [id number] [place] [address]- 9705 Mar, [facility] [address] [id number] [place] [address]- 4018 Mar, [facility] [address] [id number] [place] [address]- 0772 15 Mar, 2014 [facility] [place] [facility] [address] [id number] [place] [address]- 8019 15 Mar, 2014 [facility] [address] [id number] [place] [address]- 3771 15 Mar, 2014 [facility] [place] [facility] [address] [id number] [place] [address]- 3271 15 Mar, 2014 [facility] [place] [facility] [address] [id number] [place] [address]- 0246 Mar, [facility] [place] [facility] [address] [id number] [place] [address]- 4441 Mar, [facility] [place] [facility] [address] [id number] [place] [address]- 9418 Mar, [facility] [place] [facility] [address] [id number] [place] [address]81 Mar, [facility] [place] [facility] [address] [id number] [place] [address]- 2406 Feb, [facility] [place] [facility] [address] [id number] [place] [address]- 6702 Feb, [facility] [place] [facility] [address] [id number] [place] [address]- 5293 Feb, [facility] [place] [facility] [address] [id number] [place] [address]- 9449 Feb, [facility] [place] [facility] [address] [id number] [place] [address]- 3085 Feb, [facility] [place] [facility] [address] [id number] [place] [address]- 3978 Feb, [facility] [place] [facility] [address] [id number] [place] [address]- 0392 Feb, [facility] [place] [facility] [address] [id number] [place] [address]- 3522 Feb, [facility] [place] [facility] [address] [id number] [place] [address]- 9666 Feb, [facility] [place] [facility] [address] [id number] [place] [address]- 1049 Feb, [facility] [place] [facility] [address] [id number] [place] [address]- 5513 Feb, [facility] [place] [facility] [address] [id number], [place] [address]- 5215 17 Feb, 2014 [facility] [place] [facility] [address] [id number] [place] [address]- 7382 Feb, [facility] [place] [facility] [address] [id number] [place] [address]- 4620 14 Feb, 2014 [facility] [place] [facility] [address] [id number], [place] [address]- 3050 Feb, [facility] [place] [facility] [address] [id number], [place] [address]- 1872 Feb, [facility] [place] [facility] [address] [id number] [place] [address]- 7041 14 Feb, 2014 [facility] [place] [facility] [address] [id number] [place] [address]- 4631 Feb, [facility] [place] [facility] [address] [id number] [place] [address]- 5443 Feb, [facility] [place] [facility] [address] [id number] [place] [address]- 6084 Feb, [facility] [place] [facility] [address] [id number] [place] [address]- 1461 Feb, [facility] [place] [facility] [address] [id number] [place] [address]- 3513 Jan, [facility] [place] [facility] [address] [id number] [place] [address]- 6358 Jan, [facility] [place] [facility] [address] [id number] [place] [address]- 2939 Jan, [facility] [place] [facility] [address] [id number] [place] [address]- 4119 Jan, [facility] [place] [facility] [address] [id number] [place] [address]- 6912 Jan, [facility] [place] [facility] [address] [id number] [place] [address]- 7074 Jan, [facility] [place] [facility] [address] [id number], [place] [address]- 8668 Jan, [facility] [place] [facility] [address] [id number] [place] [address]- 6881 Jan, [facility] [place] [facility] [address] [id number] [place] [address]- 9932 Jan, [facility] [place] [facility] [address] [id number] [place] [address]- 6486 Jan, [facility] [place] [facility] [address] [id number] [place] [address]- 7482 17 Jan, 2013 [facility] [place] [facility] [address] [id number] [place] [address]- 1656 17 Jan, 2013 [facility] [place] [facility] [address] [id number] [place] [address]- 0077 17 Jan, 2013 [facility] [place] [facility] [address] [id number] [place] [address]- 1726 17 Jan, 2013 [facility] [place] [facility] [address] [id number] [place] [address]- 3913 15 Jan, 2013 [facility] [place] [facility] [address] [id number] [place] [address]- 3904 15 Jan, 2013 [facility] [place] [facility] [address] [id number] [place] [address]- 7382 14 Jan, 2013 [facility] [place] [facility] [address] [id number] [place] [address]- 5957 14 Jan, 2013 [facility] [place] [facility] [address] [id number] [place] [address]- 4874 13 Jan, 2013 [facility] [place] [facility] [address] [id number] [place] [address]- 1471 13 Jan, 2013 [facility] [place] [facility] [address] [id number] [place] [address]- 6285 13 Jan, 2013 [facility] [place] [facility] [address] [id number] [place] [address]- 3460 13 Jan, 2013 [facility] [place] [facility] [address] [id number] [place] [address]- 1715 10 Jan, 2013 [facility] [place] [facility] [address] [id number] [place] [address]- 2797 02 Jan, 2014 [facility] [place] [facility] [address] [id number] [place] 3313 02 Jan, 2014 [facility] [place] [facility] [address] [id number] [place] 3539 25 Sep, 2013 [facility] [place] [facility] [address] [id number] [place] [address]- 4946 25 Sep, 2013 [facility] [place] [facility] [address] [id number] [place] [address]- 5302 23 Sep, 2013 [facility] [place] [facility] [address] [id number] [place] [address]- 1676 23 Sep, 2013 [facility] [place] [facility] [address] [id number] [place] [address]- 7955 19 Sep, 2013 [facility] [place] [facility] [address] [id number] [place] [address]- 4571 19 Sep, 2013 [facility] [place] [facility] [address] [id number] [place] [address]- 5437 17 Sep, 2013 [facility] [place] [facility] [address] [id number] [place] [address]- 1647 17 Sep, 2013 [facility] [place] [facility] [address] [id number] [place] [address]- 1647 09 Sep, 2013 [facility] [place] [facility] [address] [id number] [place] [address]- 3400 09 Sep, 2013 [facility] [place] [facility] [address] [id number] [place] [address]- 0817 08 Sep, 2013 [facility] [place] [facility] [address] [id number], [place] [address]- 4354 08 Sep, 2013 [facility] [place] [facility] [address] [id number], [place] [address]- 6293 04 Sep, 2013 [facility] [place] [facility] [address] [id number] [place] [address]- 5901 04 Sep, 2013 [facility] [place] [facility] [address] [id number] [place] [address]- 2631 02 Sep, 2013 [facility] [place] [facility] [address] [id number] [place] [address]- 9388 02 Sep, 2013 [facility] [place] [facility] [address] [id number] [place] [address]- 1695 Dec, [facility] [place] [facility] [address] [id number] [place] [address]- 8255 Dec, [facility] [place] [facility] [address] [id number] [place] [address]- 2825 Nov, [facility] [place] [facility] [address] [id number] [place] [address]- 3136 Nov, [facility] [place] [facility] [address] [id number] [place] [address]- 4281 Nov, [facility] [place] [facility] [address] [id number] [place] [address]- 2093 Nov, [facility] [place] [facility] [address] [id number] [place] [address]- 6020 Nov, [facility] [place] [facility] [address] [id number] [place] [address]- 6561 Nov, [facility] [place] [facility] [address] [id number] [place] [address]- 6933 Nov, [facility] [place] [facility] [address] [id number] [place] [address]- 2573 Nov, [facility] [place] [facility] [address] [id number] [place] [address]- 3821 Nov, [facility] [place] [facility] [address] [id number] [place] [address]- 8049 Nov, [facility] [place] [facility] [address] [id number] [place] [address]- 1114 Nov, [facility] [place] [facility] [address] [id number] [place] [address]- 0767 Nov, [facility] [place] [facility] [address] [id number] [place] [address]- 2071 Oct, [facility] [place] [facility] [address] [id number] [place] [address]- 4823 Oct, [facility] [place] [facility] [address] [id number] [place] [address]- 3063 Oct, [facility] [place] [facility] [address] [id number] [place] [address]- 0839 Oct, [facility] [place] [facility] [address] [id number] [place] [address]- 2865 Oct, [facility] [place] [facility] [address] [id number] [place] [address]- 0691 Oct, [facility] [place] [facility] [address] [id number] [place] [address]- 6879 Oct, [facility] [place] [facility] [address] [id number] [place] [address]- 8158 Oct, [facility] [place] [facility] [address] [id number] [place] [address]- 1323 Oct, [facility] [place] [facility] [address] [id number] [place] [address]- 0194 Oct, [facility] [place] [facility] [address] [id number] [place] [address]- 6400 Oct, [facility] [place] [facility] [address] [id number] [place] [address]- 5589 Oct, [facility] [place] [facility] [address] [id number] [place] [address]- 2644 Oct, [facility] [place] [facility] [address] [id number] [place] [address]- 8109 Oct, [facility] [place] [facility] [address] [id number] [place] [address]- 1259 Oct, [facility] [place] [facility] [address] [id number] [place] [address]- 6715 Oct, [facility] [place] [facility] [address] [id number] [place] [address]- 5416 Oct, [facility] [place] [facility] [address] [id number] [place] [address]- 5823 Sep, [facility] [place] [facility] [address] [id number] [place] [address]- 2570 Sep, [facility] [place] [facility] [address] [id number] [place] [address]- 3448 Sep, [facility] [place] [facility] [address] [id number] [place] [address]- 6768 Sep, [facility] [place] [facility] [address] [id number] [place] [address] Sep, [facility] [place] [facility] [address] [id number] [place] [address] Sep, [facility] [place] [facility] [address] [id number] [place] [address] Sep, [facility] [place] [facility] [address] [id number] [place] [address] Sep, [facility] [place] [facility] [address] [id number] [place] [address] Sep, [facility] [place] [facility] [address] [id number] [place] [address] Sep, [facility] [place] [facility] [address] [id number] [place] [address] Sep, [facility] [place] [facility] [address] [id number] [address] Sep, [facility] [place] [facility] [address] [id number], [place] [address] Sep, [facility] [place] [facility] [address] [id number] [place] [address] Sep, [facility] [place] [facility] [address] [id number] [place] [address] 09 Sep, 2013 [facility] [place] [facility] [address] [id number] [place] [address] Sep, [facility] [place] [facility] [address] [id number] [place] [address] Sep, [facility] [address] [id number] [place] [address]756 Sep, [facility] [place] [facility] [address] [id number] [place] [address] Sep, [facility] [address] [id number] [place] [address] Sep, [facility] [place] [facility] [address] [id number] [place] [address] Sep, [facility] [address] [id number] [place] [address]- [address] Sep, [facility] [address] [id number] [place] [address] August, [facility] [place] [facility] [address] [id number] [place] [address] August, [facility] [address] [id number] [place] [address] August, [facility] [place] [facility] [address] [id number] [place] [address] August, [facility] [address] [id number] [place] [address] August, [facility] [place] [facility] [address] [id number] [place] [address] August, [facility] [place] [facility] [address] [id number] [place] [address] August, [facility] [place] [facility] [address] [id number] [place] [address] August, [facility] [place] [facility] [address] [id number] [place] [address] August, [facility] [place] [facility] [address] [id number] [place] [address] August, [facility] [place] [facility] [address] [id number] [place] [address]- 9884 August, [facility] [place] [facility] [address] [id number] [place] [address] 98[address] Jul, [facility] [place] [facility] [address] [id number] [place] [address] 6198 Jul, [facility] [place] [facility] [address] [id number] [place] [address] Jul, [facility] [place] [facility] [address] [id number] [place] [address]- 2875 Jul, [facility] [place] [facility] [address] [id number] [place] [address]- [address] Jul, [facility] [place] [facility] [address] [id number] [place] [address] 37[address] Jul, [facility] [place] [facility] [address] [id number] [place] [address]- [address] Jul, [facility] [place] [facility] [address] [id number] [place] [address] Jul, [facility] [place] [facility] [address] [id number] [place] [address]- [address]239 Jul, [facility] [place] [facility] [address] [id number] [place] [address]- 9944 Jul, [facility] [place] [facility] [address] [id number] [place] [address]- [address] 16 Jul, 2013 [facility] [place] [facility] [address] [id number] [place] [address]- [address] Jul, [facility] [place] [facility] [address] [id number] [place] [address]- 5977 Jul, [facility] [place] [facility] [address] [id number] [place] [address]- 7145 Jul, [facility] [place] [facility] [address] [id number] [place] [address]- 8181 Jul, [facility] [place] [facility] [address] [id number] [place] [address]- 2943 Jul, [facility] [place] [facility] [address] [id number] [place] [address]- 1045 Jul, [facility] [place] [facility] [address] [id number] [place] [address]- 6765 Jul, [facility] [place] [facility] [address] [id number] [place] [address]- 6176 Jul, [facility] [place] [facility] [address] [id number] [place] [address]- 3392 Jul, [facility] [place] [facility] [address] [id number] [place] [address]- 3832 Jul, [facility] [place] [facility] [address] [id number] [place] [address]- 6561 Jul, [facility] [place] [facility] [address] [id number] [place] [address]- 4290 Jul, [facility] [place] [facility] [address] [id number] [place] [address]- 6779 Jun, [facility] [place] [facility] [address] [id number] [place] [address]- [address]886 Jun, [facility] [place] [facility] [address] [id number] [place] [address]- 0824 Jun, [facility] [place] [facility] [address] [id number] [place] [address]- [address]37 Jun, [facility] [place] [facility] [address] [id number] [place] [address]- 5795 Jun, [facility] [place] [facility] [address] [id number] [place] [address]- 0985 Jun, [facility] [place] [facility] [address] [id number] [place] [address]- 7639 Jun, [facility] [place] [facility] [address] [id number] [place] [address]- 0371 Jun, [facility] [place] [facility] [address] [id number] [place] [address]- 9263 18 Jun, 2013 [facility] [place] [facility] [address] [id number] [place] [address]- 7700 18 Jun, 2013 [facility] [place] [facility] [address] [id number] [place] [address]- [address]102 Jun, [facility] [place] [facility] [address] [id number] [place] [address]- 2020 Jun, [facility] [place] [facility] [address] [id number] [place] [address]- [address]62 18 May, 2013 [facility] [place] [facility] [address] [id number] [place] [address]- 5801 May, [facility] [place] [facility] [address] [id number] [place] [address]- 0588 Apr, [facility] [place] [facility] [address] [id number] [place] [address]- 3010 Apr, [facility] [place] [facility] [address] [id number] [place] [address]- 9517 30 Apr, 2013 [facility] [place] [facility] [address] [id number] [place] [address]- 4610 Apr, [facility] [place] [facility] [address] [id number] [place] [address]- 9648 Apr, [facility] [place] [facility] [address] [id number] [place] [address]- 6224 27 Apr, 2013 [facility] [place] [facility] [address] [id number] [place] [address]- 4050 Apr, [facility] [place] [facility] [address] [id number] [place] [place] [address] 20 Apr, 2013 [facility] [place] [facility] [address] [id number] [place] [address] Apr, [facility] [address] [id number] [place] [address] 1495 Apr, [facility] [place] [facility] [address] [id number] [place] [address] 4[address] Apr, [facility] [place] [facility] [address] [id number] [place] [address] Mar, [facility] [place] [facility] [address] [id number] [place] [address]- 4[address] Mar, [facility] [place] [facility] [address] [id number] [place] [address]- 5290 Mar, [facility] [place] [facility] [address] [id number] [place] [address] 0240 Mar, [facility] [place] [facility] [address] [id number] [place] [address]- [address] Feb, [facility] [place] [facility] [address] [id number], [place] [address] Feb, [facility] [place] [facility] [address] [id number], [place] [address] 9316 Feb, [facility] [place] [facility] [address] [id number], [place] [address] Feb, [facility] [place] [facility] [address] [id number], [place] [address] 8787 Feb, [facility] [place] [facility] [address] [id number], [place] [address]- 0[address] Feb, [facility] [place] [facility] [address] [id number], [place] [address]- 4844 Feb, [facility] [place] [facility] [address] [id number], [place] [address]- 3139 Feb, [facility] [place] [facility] [address] [id number], [place] [address] 9[address] Feb, [facility] [place] [facility] [address] [id number] [place] [address]- 2000 Feb, [facility] [place] [facility] [address] [id number] [place] [address]- 6929 Feb, [facility] [place] [facility] [address] [id number] [place] [address]- 8320 Jan, [facility] [place] [facility] [address] [id number] [place] [address]- 5087 Jan, [facility] [place] [facility] [address] [id number] [place] [address]- 9454 Jan, [facility] [place] [facility] [address] [id number] [place] [address]- 8294 Jan, [facility] [place] [facility] [address] [id number] [place] [address]- 3684 Jan, [facility] [place] [facility] [address] [id number] [place] [address]- 9626 Jan, [facility] [place] [facility] [address] [id number] [place] [address]- 3630 Jan, [facility] [place] [facility] [address] [id number] [place] [address]- 3607 Jan, [facility] [place] [facility] [address] [id number] [place] [address]- 3390 30 Sep, 2012 [facility] [place] [facility] [address] [id number] [place] [address]- 1713 25 Sep, 2012 [facility] [place] [facility] [address] [id number] [place] [address]- 3046 18 Sep, 2012 [facility] [place] [facility] [address] [id number] [place] [address]- 2554 17 Sep, 2012 [facility] [place] [facility] [address] [id number] [place] [address]- 2544 17 Sep, 2012 [facility] [place] [facility] [address] [id number] [place] [address]- 5392 16 Dec, 2012 [facility] [place] [facility] [address] [id number] [place] [address]- 7009 13 Dec, 2012 [facility] [place] [facility] [address] [id number] [place] [address]- 3586 11 Dec, 2012 [facility] [place] [facility] [address] [id number] [place] [address]- 9969 05 Dec, 2012 [facility] [place] [facility] [address] [id number] [place] [address]- 1333 04 Dec, 2012 [facility] [address] [id number] [place] [address]- 1806 30 Nov, 2012 [facility] [place] [facility] [address] [id number] [place] [address]- 9444 Nov, [facility] [address] [id number] [place] [address]- 1086 Nov, [facility] [address] [id number] [place] [address]- 4865 Nov, [facility] [place] [facility] [address] [id number] [place] [address]- 0689 Nov, [facility] [place] [facility] [address] [id number] [place] [address]- 1419 Nov, [facility] [place] [facility] [address] [id number] [place] [address]- 6771 Nov, [facility] [place] [facility] [address] [id number] [place] [address]- 8346 Oct, [facility] [place] [facility] [address] [id number] [place] [address]- 0699 Oct, [facility] [place] [facility] [address] [id number] [place] [address]- 8592 Oct, [facility] [place] [facility] [address] [id number] [place] [address]- 1498 Oct, [facility] [place] [facility] [address] [id number] [place] [address]- 5880 15 Oct, 2012 [facility] [address] [id number] [place] [address]- 8760 Oct, [facility] [place] [facility] [address] [id number] [place] [address]- 9738 Sep, [facility] [place] [facility] [address] [id number] [place] [address]- 8563 Sep, [facility] [place] [facility] [address] [id number] [place] [address]- 5827 Sep, [facility] [place] [facility] [address] [id number] [place] [address]- 2120 14 Sep, 2012 [facility] [place] [facility] [address] [id number] [place] [address]- 1902 Sep, [facility] [place] [facility] [address] [id number] [place] [address]- 6304 Sep, [facility] [place] [facility] [address] [id number] [place] [address]- 3753 Sep, [facility] [place] [facility] [address] [id number] [place] [address]- 9525 Sep, [facility] [place] [facility] [address] [id number] [place] [address]- 3137 Sep, [facility] [place] [facility] [address] [id number] [place] [address]- 3674 August, [facility] [place] [facility] [address] [id number] [place] [address]- 3474 August, [facility] [place] [facility] [address] [id number] [place] [address]- 5907 August, [facility] [place] [facility] [address] [id number] [place] [address]- 4192 August, [facility] [place] [facility] [address] [id number] [place] [address]- 7072 August, [facility] [place] [facility] [address] [id number] [place] [address]- 2546 August, [facility] [address] [id number] [place] [address]- 6296 August, [facility] [address] [id number] [place] [address]- 2546 August, [facility] [address] [id number] [place] [address]- 1506 Jul, [facility] [address] [id number] [place] [address]- 9606 Jul, [facility] [address] [place] [id number] Jul [facility] [address] [id number] [place] [address]- 1446 Jun, [facility] [address] [id number] [place] [address]- 3636 Jun, [facility] [address] [id number] [place] [address]- 0636 Jun, [facility] [address] [id number] [place] [address]- 2426 Jun, [facility] [address] [facility] [id number] [place] [address]- 7776 Jun, [facility] [address] [id number] [place] [address]- 2546 Jun, [facility] [address] [id number] [place] [address]- 2546 May, [facility] [address] [id number] [place] [address]- 1006 May, [facility] [address] [id number] [place] [address]- 2546 May, [facility] [address] [id number] [place] [address]- 2546 May, [facility] [place] [facility] [address] [id number] [place] [address]- 3154 May, [facility] [address] [id number] [place] [address]- 4844 Apr, [facility] [address] [id number] [place] [address]- 8564 Apr, [facility] [address] [id number] [place] [address]- 1550 Apr, [facility] [address] [id number] [place] [address]- 3099 Apr, [facility] [address] [id number] [place] [address]- 9331 Apr, [facility] [address] [id number] [place] [address]- 2470 Apr, [facility] [address] [id number] [place] [address]- 3951 Mar, [facility] [address] [id number] [place] [address]- 5304 Mar, [facility] [address] [id number] [place] [address]- 3058 Mar, [facility] [address] [id number] [place] [address]- 4382 Mar, [facility] [address] [id number] [place] [address]- 2763 Mar, [facility] [place] [facility] [address] [id number] [place] 5189 18 Mar, 2012 [facility] [place] [facility] [address] [id number] [place] [address]- 9812 18 Mar, 2012 [facility] [place] [facility] [address] [id number] [place] [address]- 7008 10 Mar, 2012 [facility] [place] [facility] [address] [id number], [place] [address]- 2019 Mar, [facility] [place] [facility] [address] [id number] [place] [address]- 8981 Mar, [facility] [place] [facility] [address] [id number] [place] [address]- 6580 Mar, [facility] [place] [facility] [address] [id number] [place] [address]- 3399 Feb, [facility] [place] [facility] [address] [id number] [place] [address]- 5573 Feb, [facility] [place] [facility] [address] [id number] [place] [address]- 5089 Feb, [facility] [place] [facility] [address] [id number] [place] [address]- 0999 Feb, [facility] [place] [facility] [id number] [place] [address]- 8532 Feb, [facility] [place] [facility] [address] [id number] [place] [address]- 4023 Feb, [facility] [place] [facility] [address] [id number] [place] [address]- 7723 Feb, [facility] [place] [facility] [address] [facility] [id number] [place] [address]- 6987 Feb, [facility] [place] [facility] [address] [id number], [place] [address]- 7495 Feb, [facility] [place] [facility] [address] [id number], [place] [address]- 2219 Feb, [facility] [place] [facility] [address] [id number], [place] [address]- 2194 Feb, [facility] [place] [facility] [address] [id number] [place] [address]- 5739 Jan, [facility] [place] [facility] [address] [facility] [id number] [place] [address]- 5508 Jan, [facility] [place] [facility] [address] [id number] [place] [address]- 3850 Jan, [facility] [place] [facility] [address] [id number] [place] [address]- 5968 Jan, [facility] [place] [facility] [address] [id number] [place] [address]- 9936 Jan, [facility] [place] [facility] [address] [id number] [place] [address]- 3346 Jan, [facility] [place] [facility] [address] [id number] [place] [address]- 8753 Jan, [facility] [place] [facility] [address] [id number] [place] [address]- 4425 24 Dec, 2011 [facility] [place] [facility] [address] [id number] [place] [address]- 8108 17 Dec, 2011 [facility] [place] [facility] [address] [id number] [place] [address]- 5366 13 Dec, 2011 [facility] [place] [facility] [address] [id number] [place] [address]- 8129 12 Dec, 2011 [facility] [place] [facility] [address] [id number] [place] [address]- 5679 Nov, [facility] [place] [facility] [address] [id number] [place] [address]- 1971 Nov, [facility] [place] [facility] [address] [id number] [place] [address]- 6178 17 Nov, 2011 [facility] [place] [facility] [address] [id number] [place] [address]- 1233 15 Nov, 2011 [facility] [place] [facility] [address] [id number] [place] [address]- 7015 14 Nov, 2011 [facility] [place] [facility] [address] [id number] [place] [address]- 2576 13 Nov, 2011 [facility] [place] [facility] [address] [id number] [place] [address]- 1832 Nov, [facility] [place] [facility] [address] [id number] [place] [address]- 2269 Nov, [facility] [place] [facility] [address] [id number] [place] [address]- 0229 Nov, [facility] [place] [facility] [address] [id number] [place] [address]- 1271 Nov, [facility] [place] [facility] [address] [id number] [place] [address]- 5997 Nov, [facility] [place] [facility] [address] [id number] [place] [address]- 7946 Nov, [facility] [place] [facility] [address] [id number] [place] [address]- 5807 Nov, [facility] [place] [facility] [address] [id number] [place] [address]- 2728 Oct, [facility] [place] [facility] [address] [id number] [place] [address]- 9771 Oct, [facility] [place] [facility] [address] [id number] [place] [address]- 2456 Oct, [facility] [place] [facility] [address] [id number] [place] [address]- 8843 Oct, [facility] [place] [facility] [address] [id number] [place] [address]- 1922 Oct, [facility] [place] [facility] [address] [id number] [place] [address]- 8321 Oct, [facility] [place] [facility] [address] [id number] [place] [address]- 6318 Oct, [facility] [place] [facility] [address] [id number] [place] [address]- 2357 Oct, [facility] [place] [facility] [address] [id number] [place] [address]- 4414 Oct, [facility] [place] [facility] [address] [id number] [place] [address]- 9891 Sep, [facility] [place] [facility] [address] [id number] [place] [address]- 2443 Sep, [facility] [place] [facility] [address] [id number] [place] [address]- 3296 Sep, [facility] [place] [facility] [address] [id number] [place] [address]- 5396 Sep, [facility] [place] [facility] [address] [id number] [place] [address]- 8296 Sep, [facility] [place] [facility] [address] [id number] [place] [address]- 9167 Sep, [facility] [place] [facility] [address] [id number] [place] [address]- 7063 Sep, [facility] [place] [facility] [address] [id number] [place] [address]- 7601 Sep, [facility] [place] [facility] [address] [id number] [place] [address]- 6730 August, [facility] [place] [facility] [address] [id number] [place] [address]- 6073 August, [facility] [place] [facility] [address] [id number] [place] [address]- 1917 August, [facility] [place] [facility] [address] [id number] [place] [address]- 4264 August, [facility] [place] [facility] [address] [id number] [place] [address]- 4327 August, [facility] [place] [facility] [address] [id number] [place] [address]- 9899 August, [facility] [place] [facility] [address] [id number] [place] [address]- 4283 August, [facility] [place] [facility] [address] [id number] [place] [address]- 3925 August, [facility] [place] [facility] [address] [facility] [id number], [place] [address]- 8725 August, [facility] [address] [facility] [id number][place] 5246 August, [facility] [address] [facility] [id number], [place] [address]- 9439 August, [facility] [address] [facility] [id number], [place] [address]- 5442 August, [facility] [address] [facility] [id number][place] [address]- [address]378 Oct, IMMUNIZATIONS No Known Immunizations SOCIAL HISTORY [...] Hospitalization History suicidal ideations-[facility] 12/28 Hospitalization History hypoxia--[facility] 02/13/2016 Hospitalization History shortness of breath at june 2016 Hospitalization History Shortness of breath at august 2016 Hospitalization History SOB, chest pain at 12/2016
--- OUTSIDE RECORDS SUMMARY | 2018-02-11 13:44 | XMS REPORT ---
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 examination Z01.20 [facility] [id number] [place] [address] 37721- 8342 Mar, Chronic diarrhea K52.9 ; Intractable vomiting with nausea, vomiting of unspecified type R11.2 ; Cellulitis, unspecified cellulitis site L03.90 ; Type 2 diabetes mellitus with diabetic polyneuropathy E11.42 and Postinflammatory hyperpigmentation L81.0 [facility] [address] [place] [address] 15485- 7690 Mar, Unspecified mood [affective] disorder F39 [facility] [id number] [place] [address] 21330- 3660 Mar, Unspecified mood [affective] disorder F39 [facility] [id number] [place] [address] 23198- 7554 Mar, [facility] [id number] [place] [address] 83771- 7992 Mar, [facility] [id number] [place] [address] 72001- 7508 Mar, [facility] [id number] [place] [address] 52271- 8298 Mar, [facility] [id number] [place] [address] 91438- 1645 Mar, [facility] [id number] [place] [address] 81588- 1188 Mar, [facility] [address] [address]- 4359 Feb, Unspecified mood [affective] disorder F39 [facility] [id number] [place] [address] 34260- 3030 Feb, [facility] [id number] [place] [address] 20048- 9775 Feb, [facility] [id number] [place] [address] 94268- 0909 Jan, Unspecified mood [affective] disorder [address] [id number] [id number] Jan, Encounter for dental examination Z01.20 [facility] [id number] [place] [address] 83965- 8676 Jan, [facility] [id number] [place] [address] 63442- 5057 Jan, [facility] [id number] [place] [address] 14799- 4311 Jan, [facility] [id number] [place] [address] 89137- 3191 Jan, [facility] [id number] [place] [address] 97329- 6501 Jan, [facility] [id number] [place] [address] 64736- 8710 Jan, Abdominal abscess K65.1 and Dental caries K02.9 [facility] [id number] [place] [address] 89970- 2986 Jan, [facility] [id number] [place] [address] 42914- 4692 Dec, Diabetes with neurological manifestations, type II or unspecified type, not stated as uncontrolled 250.60 ; Essential hypertension, benign 401.1 ; Concussion 850.9 and Skin texture changes 782.8 [facility] [id number] [place] [address] 34329- 7855 Dec, [facility] [id number] [place] [address] 14128- 1253 Dec, [facility] [address] [facility] [id number] [address] 2546 22 Dec, 2014 [facility] [address], [place] [address] 2546 21 Dec, 2014 [facility] [address] [address] 2546 17 Dec, 2014 Affective disorder 296.90 [facility] [id number] [place] [address] 15148 2546 14 Sep, 2014 [facility] [address], [place] [address] 2546 10 Dec, 2014 Affective disorder 296.90 [facility] [address], [place] [address] 2546 04 Dec, 2014 [facility] [address], [place] [address] 2546 04 Dec, 2014 [facility] [address], [place] [address] 2546 04 Dec, 2014 [facility] [address] [address] 2546 Dec, 2014 [facility] [address], [place] [address] 2546 Nov, Affective disorder 296.90 [facility] [address], [place] [address] 2546 Nov, 2014 [facility] [address], [place] [address] 2546 Nov, Affective disorder 296.90 [facility] [address] [address] 2546 Nov, Diarrhea 787.91 [facility] [address] [address] 2546 Nov, [facility] [address], [place] [address]- 2546 Nov, Diarrhea 787.91 [facility] [address] [address] 2546 Nov, Diarrhea 787.91 and Hyperlipidemia 272.4 [facility] [address] [place] [address] 18271 2546 Nov, Diarrhea 787.91 [facility] [id number] [place] [address] 17955 2546 Nov, Affective disorder 296.90 [facility] [address] [place] [address] 28138 2546 Nov, Affective disorder 296.90 [facility] [id number] [place] [address] 60281 2546 Nov, Affective disorder 296.90 [facility] [id number] [place] [address] 45174- 8651 Nov, [facility] [id number] [place] [address] 55819 2543 Nov, [facility] [id number] [place] [address] 33378- 9361 Nov, [facility] [id number] [place] [address] 02312- 7067 Nov, Episodic mood disorder 296.90 [facility] [address], [place] [address] 2548 Nov, [facility] [address], [place] [address] 2542 Nov, [facility] [id number] [place] [address] 85638 2542 Nov, [facility] [id number] [place] [address] 27022 2542 Nov, [facility] [address], [place] [address]- 2548 Nov, [facility] [address] [address]- 3315 Nov, Lymphedema 457.1 ; Hyperlipidemia 272.4 ; Essential hypertension, benign 401.1 and Numbness of toes 782.0 [facility] [address] [place] [place] [address]- 8123 Nov, Episodic mood disorder 296.90 [facility] [address] [place] [address]- 6075 Oct, [facility] [address], [place] [address]- 3490 Oct, [facility] [address], [place] [address]- 5334 Oct, [facility] [address], [place] [address]- 8601 Oct, [facility] [address], [place] [address]- 8300 Oct, [facility] [address], [place] [address]- 2795 Oct, [facility] [address], [place] [address]- 1139 Oct, [facility] [address], [place] [address]- 0560 Oct, [facility] [address] 2837 Oct, Episodic mood disorder 296.90 [facility] [address] [address]- 1668 Sep, [facility] [address]- 9302 Sep, [facility] [id number] 2300 Sep, [facility] [address] [address]- 4891 Sep, [facility] [address], [place] [address]- 8669 Sep, [facility] [address], [place] [address]- 8659 Sep, Episodic mood disorder 296.90 [facility] [address], [place] [address]- 6315 Sep, Unspecified episodic mood disorder 296.90 [facility] [address], [place] [address]- 4825 Sep, [facility] [address], [place] [address]- 2647 Sep, [facility] [address], [place] [address]- 5472 16 Sep, 2014 Episodic mood disorder 296.90 [facility] [address], [place] [address]- 3697 Sep, [facility] [address], [place] [address]- 9624 Sep, [facility] [address], [place] [address]- 9928 Sep, [facility] [address], [place] [address]- 1486 Sep, Hematemesis 578.0 and Vomiting 787.03 [facility] [id number] [address]- 0288 09 Sep, 2014 Episodic mood disorder 296.90 [facility] [address], [place] [address]- 7596 08 Sep, 2014 [facility] [address] [address]- 2542 Sep, [facility] [id number] [address]- 5291 Sep, Diabetes mellitus without mention of complication, type II or unspecified type, not stated as uncontrolled 250.00 and Other chronic pain 338.29 [facility] [address]- 8707 Sep, Episodic mood disorder 296.90 [facility] [address] 7221 Sep, [facility] [id number]- 1898 Sep, Episodic mood disorder 296.90 [facility] [address]- 6918 Sep, [facility] [address], [place] [address]- 6024 August, [facility] [address] [address]- 1455 August, [facility] [address], [place] [address]- 3965 August, Episodic mood disorder 296.90 [facility] [address], [place] [address]- 2750 August, [facility] [address], [place] [address]- 3430 August, Unspecified episodic mood disorder 296.90 [facility] [address], [place] [address]- 6440 August, Vomiting 787.03 [facility] [address], [place] [address]- 4709 August, [facility] [address]- 1410 August, [facility] [address] 1650 August, [facility] [address], [place] [address]- 0171 August, [facility] [place] [facility] [address] [id number] [place] [address]- 1162 August, [facility] [place] [facility] [address] [id number] [place] [address]- 3905 Jul, [facility] [place] [facility] [address] [id number] [place] [address]- 1185 Jul, [facility] [place] [facility] [address] [id number] [place] [address] Jul, [facility] [place] [facility] [address] [id number] [place] [address] 30 Jun, 2014 [facility] [place] [facility] [address] [id number] [place] [address] Jun, [facility] [place] [facility] [address] [id number] [place] [address] Jun, [facility] [place] [facility] [address] [id number] [place] [address] Jun, [facility] [place] [facility] [address] [id number] [place] [address] Jun, [facility] [place] [facility] [address] [id number] [place] [address] Jun, [facility] [place] [facility] [address] [id number] [place] [address] Jun, [facility] [place] [facility] [address] [id number] [place] [address] 30 Jun, 2014 [facility] [place] [facility] [address] [id number] [place] [address] Jun, [facility] [place] [facility] [address] [id number] [place] [address] Jun, [facility] [place] [facility] [address] [id number] [place] [address] Jun, [facility] [place] [facility] [address] [id number] [place] [address] Jun, [facility] [place] [facility] [address] [id number] [place] [address] Jun, [facility] [place] [facility] [address] [id number] [place] [address] Jun, [facility] [place] [facility] [address] [id number] [place] [address] Jun, [facility] [place] [facility] [address] [id number] [place] [address] Jun, [facility] [place] [facility] [address] [id number] [place] [address] Jun, [facility] [place] [facility] [address] [id number] [place] [address] Jun, [facility] [place] [facility] [address] [id number] [place] [address] Jun, [facility] [place] [facility] [address] [id number] [place] [address] Jun, [facility] [place] [facility] [address] [id number] [place] [address] Jun, [facility] [place] [facility] [address] [id number] [place] [address] Jun, [facility] [place] [facility] [address] [id number] [place] [address] Jun, [facility] [place] [facility] [address] [id number] [place] [address] Jun, [facility] [place] [facility] [address] [id number] [place] [address] Jun, [facility] [place] [facility] [address] [id number] [place] [address] 19 Jun, 2014 [facility] [place] [facility] [address] [id number] [place] [address] 19 Jun, 2014 [facility] [place] [facility] [address] [id number] [place] [address] 18 Jun, 2014 [facility] [place] [facility] [address] [id number] [place] [address] 18 Jun, 2014 [facility] [place] [facility] [address] [id number] [place] [address] 17 Jun, 2014 [facility] [place] [facility] [address] [id number] [place] [address] 17 Jun, 2014 [facility] [place] [facility] [address] [id number] [place] [address] 16 Jun, 2014 [facility] [place] [facility] [address] [id number] [place] [address] 16 Jun, 2014 [facility] [place] [facility] [address] [id number] [place] [address] 7130 16 Jun, 2014 [facility] [place] [facility] [address] [id number] [place] [address] 7934 16 Jun, 2014 [facility] [place] [facility] [address] [id number] [place] [address] 6515 16 Jun, 2014 [facility] [place] [facility] [address] [id number] [place] [address] 7504 16 Jun, 2014 [facility] [place] [facility] [address] [id number] [place] [address] 6[address] 13 Jun, 2014 [facility] [place] [facility] [address] [id number] [place] [address] 2398 13 Jun, 2014 [facility] [place] [facility] [address] [id number] [place] [address] 7114 12 Jun, 2014 [facility] [place] [facility] [address] [id number] [place] [address]- 6832 12 Jun, 2014 [facility] [place] [facility] [address] [id number] [place] [address] 2472 09 Jun, 2014 [facility] [place] [facility] [address] [id number] [place] [address] 2832 Jun, [facility] [place] [facility] [address] [id number] [place] [address]- 1794 Jun, [facility] [place] [facility] [address] [id number] [place] [address]- 2811 Jun, [facility] [place] [facility] [address] [id number] [place] [address]- 0902 Jun, [facility] [place] [facility] [address] [id number] [place] [address]- 8395 Jun, [facility] [place] [facility] [address] [id number] [place] [address]- 1026 Jun, [facility] [place] [facility] [address] [id number] [place] [address]- 6754 Jun, [facility] [place] [facility] [address] [id number] [place] [address]- 5965 Jun, [facility] [place] [facility] [address] [id number] [place] [address]- 8918 Jun, [facility] [place] [facility] [address] [id number] [place] [address] 4286 Jun, [facility] [place] [facility] [address] [id number] [place] [address]- 2617 Jun, [facility] [place] [facility] [address] [id number] [place] [address]- 0387 Jun, [facility] [place] [facility] [address] [id number] [place] [address]- 4638 Jun, [facility] [place] [facility] [address] [id number] [place] [address]- 9310 Jun, [facility] [place] [facility] [address] [id number] [place] [address]- 7417 Jun, [facility] [place] [facility] [address] [id number] [place] [address]- 8721 May, [facility] [place] [facility] [address] [id number] [place] [address]- 8846 May, 2014 [facility] [place] [facility] [address] [id number] [place] [address]- 9726 May, 2014 [facility] [place] [facility] [address] [id number] [place] [address] 2546 May, 2014 [facility] [place] [facility] [address] [id number] [place] [address] 2546 May, 2014 [facility] [place] [facility] [address] [id number] [place] [address]- 2541 24 May, 2014 [facility] [place] [facility] [address] [facility] [id number] [place] [address]- 4296 May, 2014 [facility] [place] [facility] [address] [facility] [id number] [place] [address]- 7882 May, 2014 [facility] [place] [facility] [address] [facility] [id number] [place] [address]- 1579 May, 2014 [facility] [place] [facility] [address] [facility] [id number] [place] [address]- 3383 May, 2014 [facility] [place] [facility] [address] [facility] [id number] [place] [address]- 2068 18 May, 2014 [facility] [place] [facility] [address] [facility] [id number] [place] [address]- 5325 18 May, 2014 [facility] [place] [facility] [address] [facility] [id number], [place] [address] 2546 13 May, 2014 [facility] [place] [facility] [address] [facility] [id number] [place] [address]- 2546 13 May, 2014 [facility] [place] [facility] [address] [facility] [id number] [place] [address]- 2548 11 May, 2014 [facility] [place] [facility] [address] [facility] [id number] [place] [address]- 9946 11 May, 2014 [facility] [place] [facility] [address] [facility] [id number] [place] [address]- 9760 May, 2014 [facility] [place] [facility] [address] [id number] [place] [address]- 1814 May, 2014 [facility] [place] [facility] [address] [id number] [place] [address]- 2866 May, 2014 [facility] [place] [facility] [address] [id number] [place] [address]- 8352 May, 2014 [facility] [place] [facility] [address] [id number] [place] [address]- 4429 May, 2014 [facility] [place] [facility] [address] [id number] [place] [address]- 4912 May, 2014 [facility] [place] [facility] [address] [facility] [id number] [place] [address]- 7874 May, 2014 [facility] [place] [facility] [address] [facility] [id number] [place] [address]- 7260 May, 2014 [facility] [place] [facility] [address] [id number] [place] [address]- 7010 May, 2014 [facility] [place] [facility] [address] [facility] [id number] [place] [address]- 7360 May, 2014 [facility] [place] [facility] [address] [facility] [id number] [place] [address]- 5598 May, [facility] [place] [facility] [address] [facility] [id number], [place] [address]- 9893 Apr, [facility] [place] [facility] [address] [id number] [place] [address]- 0777 Apr, [facility] [place] [facility] [address] [id number] [place] [address]- 9976 Apr, [facility] [place] [facility] [address] [id number] [place] [address]- 0371 Apr, [facility] [place] [facility] [address] [facility] [id number], [place] [address]- 6236 Apr, [facility] [place] [facility] [address] [id number] [place] [address]- 1526 Apr, [facility] [place] [facility] [address] [id number] [place] [address]- 8230 Apr, [facility] [place] [facility] [address] [id number] [place] [address]- 9432 Apr, [facility] [place] [facility] [address] [id number] [place] [address]- 8381 Apr, [facility] [place] [facility] [address] [id number] [place] [address]- 3902 Apr, [facility] [place] [facility] [address] [id number] [place] [address]- 3737 Apr, [facility] [place] [facility] [address] [id number] [place] [address]- 8587 Apr, [facility] [place] [facility] [address] [id number], [place] [address]- 3088 Apr, [facility] [place] [facility] [address] [id number], [place] [address]- 0779 Apr, [facility] [place] [facility] [address] [id number] [place] [address]- 7638 Apr, [facility] [place] [facility] [address] [id number], [place] [address]- 8788 Apr, [facility] [place] [facility] [address] [id number], [place] [address]- 7362 Apr, [facility] [place] [facility] [address] [id number] [place] [address]- 3295 Apr, [facility] [place] [facility] [address] [id number], [place] [address]- 7055 Apr, [facility] [place] [facility] [address] [id number] [place] [address]- 5887 Apr, [facility] [place] [facility] [address] [id number] [place] [address]- 0992 Mar, [facility] [address] [id number] [place] [address]- 0516 Mar, [facility] [place] [facility] [address] [id number] [place] [address]- 7136 Mar, [facility] [address] [id number] [place] [address]- 2806 Mar, [facility] [address] [id number] [place] [address]- 8959 Mar, [facility] [address] [id number] [place] [address]- 3206 Mar, [facility] [address] [id number] [place] [address]- 1819 Mar, [facility] [address] [id number] [place] [address]- 2291 Mar, [facility] [address] [id number] [place] [address]- 7128 15 Mar, 2014 [facility] [place] [facility] [address] [id number] [place] [address]- 7526 15 Mar, 2014 [facility] [address] [id number] [place] [address]- 6854 15 Mar, 2014 [facility] [place] [facility] [address] [id number] [place] [address]- 7248 15 Mar, 2014 [facility] [place] [facility] [address] [id number] [place] [address]- 6594 Mar, [facility] [place] [facility] [address] [id number] [place] [address]- 2939 Mar, [facility] [place] [facility] [address] [id number] [place] [address]- 8655 Mar, [facility] [place] [facility] [address] [id number] [place] [address]281 Mar, [facility] [place] [facility] [address] [id number] [place] [address]- 4031 Feb, [facility] [place] [facility] [address] [id number] [place] [address]- 6431 Feb, [facility] [place] [facility] [address] [id number] [place] [address]- 3104 Feb, [facility] [place] [facility] [address] [id number] [place] [address]- 5917 Feb, [facility] [place] [facility] [address] [id number] [place] [address]- 6671 Feb, [facility] [place] [facility] [address] [id number] [place] [address]- 5052 Feb, [facility] [place] [facility] [address] [id number] [place] [address]- 9225 Feb, [facility] [place] [facility] [address] [id number] [place] [address]- 4296 Feb, [facility] [place] [facility] [address] [id number] [place] [address]- 7356 Feb, [facility] [place] [facility] [address] [id number] [place] [address]- 3161 Feb, [facility] [place] [facility] [address] [id number] [place] [address]- 6796 Feb, [facility] [place] [facility] [address] [id number], [place] [address]- 0711 17 Feb, 2014 [facility] [place] [facility] [address] [id number] [place] [address]- 4353 Feb, [facility] [place] [facility] [address] [id number] [place] [address]- 4675 14 Feb, 2014 [facility] [place] [facility] [address] [id number], [place] [address]- 8789 Feb, [facility] [place] [facility] [address] [id number], [place] [address]- 3213 Feb, [facility] [place] [facility] [address] [id number] [place] [address]- 9242 14 Feb, 2014 [facility] [place] [facility] [address] [id number] [place] [address]- 3765 Feb, [facility] [place] [facility] [address] [id number] [place] [address]- 2408 Feb, [facility] [place] [facility] [address] [id number] [place] [address]- 4337 Feb, [facility] [place] [facility] [address] [id number] [place] [address]- 1247 Feb, [facility] [place] [facility] [address] [id number] [place] [address]- 4429 Jan, [facility] [place] [facility] [address] [id number] [place] [address]- 9893 Jan, [facility] [place] [facility] [address] [id number] [place] [address]- 5171 Jan, [facility] [place] [facility] [address] [id number] [place] [address]- 1063 Jan, [facility] [place] [facility] [address] [id number] [place] [address]- 8887 Jan, [facility] [place] [facility] [address] [id number] [place] [address]- 2046 Jan, [facility] [place] [facility] [address] [id number], [place] [address]- 8978 Jan, [facility] [place] [facility] [address] [id number] [place] [address]- 5689 Jan, [facility] [place] [facility] [address] [id number] [place] [address]- 3627 Jan, [facility] [place] [facility] [address] [id number] [place] [address]- 7335 Jan, [facility] [place] [facility] [address] [id number] [place] [address]- 8404 17 Jan, 2013 [facility] [place] [facility] [address] [id number] [place] [address]- 0240 17 Jan, 2013 [facility] [place] [facility] [address] [id number] [place] [address]- 0439 17 Jan, 2013 [facility] [place] [facility] [address] [id number] [place] [address]- 2532 17 Jan, 2013 [facility] [place] [facility] [address] [id number] [place] [address]- 9573 15 Jan, 2013 [facility] [place] [facility] [address] [id number] [place] [address]- 7502 15 Jan, 2013 [facility] [place] [facility] [address] [id number] [place] [address]- 3289 14 Jan, 2013 [facility] [place] [facility] [address] [id number] [place] [address]- 2387 14 Jan, 2013 [facility] [place] [facility] [address] [id number] [place] [address]- 6780 13 Jan, 2013 [facility] [place] [facility] [address] [id number] [place] [address]- 4001 13 Jan, 2013 [facility] [place] [facility] [address] [id number] [place] [address]- 7929 13 Jan, 2013 [facility] [place] [facility] [address] [id number] [place] [address]- 7432 13 Jan, 2013 [facility] [place] [facility] [address] [id number] [place] [address]- 0474 10 Jan, 2013 [facility] [place] [facility] [address] [id number] [place] [address]- 7393 02 Jan, 2014 [facility] [place] [facility] [address] [id number] [place] 4218 02 Jan, 2014 [facility] [place] [facility] [address] [id number] [place] 5062 25 Sep, 2013 [facility] [place] [facility] [address] [id number] [place] [address]- 2098 25 Sep, 2013 [facility] [place] [facility] [address] [id number] [place] [address]- 0844 23 Sep, 2013 [facility] [place] [facility] [address] [id number] [place] [address]- 1078 23 Sep, 2013 [facility] [place] [facility] [address] [id number] [place] [address]- 4950 19 Sep, 2013 [facility] [place] [facility] [address] [id number] [place] [address]- 4188 19 Sep, 2013 [facility] [place] [facility] [address] [id number] [place] [address]- 8078 17 Sep, 2013 [facility] [place] [facility] [address] [id number] [place] [address]- 6133 17 Sep, 2013 [facility] [place] [facility] [address] [id number] [place] [address]- 2251 09 Sep, 2013 [facility] [place] [facility] [address] [id number] [place] [address]- 5996 09 Sep, 2013 [facility] [place] [facility] [address] [id number] [place] [address]- 0717 08 Sep, 2013 [facility] [place] [facility] [address] [id number], [place] [address]- 8197 08 Sep, 2013 [facility] [place] [facility] [address] [id number], [place] [address]- 4802 04 Sep, 2013 [facility] [place] [facility] [address] [id number] [place] [address]- 5738 04 Sep, 2013 [facility] [place] [facility] [address] [id number] [place] [address]- 8751 02 Sep, 2013 [facility] [place] [facility] [address] [id number] [place] [address]- 0337 02 Sep, 2013 [facility] [place] [facility] [address] [id number] [place] [address]- 4944 Dec, [facility] [place] [facility] [address] [id number] [place] [address]- 7128 Dec, [facility] [place] [facility] [address] [id number] [place] [address]- 0839 Nov, [facility] [place] [facility] [address] [id number] [place] [address]- 1190 Nov, [facility] [place] [facility] [address] [id number] [place] [address]- 7865 Nov, [facility] [place] [facility] [address] [id number] [place] [address]- 5337 Nov, [facility] [place] [facility] [address] [id number] [place] [address]- 7254 Nov, [facility] [place] [facility] [address] [id number] [place] [address]- 0120 Nov, [facility] [place] [facility] [address] [id number] [place] [address]- 7284 Nov, [facility] [place] [facility] [address] [id number] [place] [address]- 2191 Nov, [facility] [place] [facility] [address] [id number] [place] [address]- 3586 Nov, [facility] [place] [facility] [address] [id number] [place] [address]- 0511 Nov, [facility] [place] [facility] [address] [id number] [place] [address]- 2047 Nov, [facility] [place] [facility] [address] [id number] [place] [address]- 8873 Nov, [facility] [place] [facility] [address] [id number] [place] [address]- 7852 Oct, [facility] [place] [facility] [address] [id number] [place] [address]- 6981 Oct, [facility] [place] [facility] [address] [id number] [place] [address]- 1271 Oct, [facility] [place] [facility] [address] [id number] [place] [address]- 7323 Oct, [facility] [place] [facility] [address] [id number] [place] [address]- 8736 Oct, [facility] [place] [facility] [address] [id number] [place] [address]- 3108 Oct, [facility] [place] [facility] [address] [id number] [place] [address]- 1001 Oct, [facility] [place] [facility] [address] [id number] [place] [address]- 5060 Oct, [facility] [place] [facility] [address] [id number] [place] [address]- 3928 Oct, [facility] [place] [facility] [address] [id number] [place] [address]- 7061 Oct, [facility] [place] [facility] [address] [id number] [place] [address]- 2590 Oct, [facility] [place] [facility] [address] [id number] [place] [address]- 1847 Oct, [facility] [place] [facility] [address] [id number] [place] [address]- 9507 Oct, [facility] [place] [facility] [address] [id number] [place] [address]- 3911 Oct, [facility] [place] [facility] [address] [id number] [place] [address]- 4162 Oct, [facility] [place] [facility] [address] [id number] [place] [address]- 3771 Oct, [facility] [place] [facility] [address] [id number] [place] [address]- 2066 Oct, [facility] [place] [facility] [address] [id number] [place] [address]- 9318 Sep, [facility] [place] [facility] [address] [id number] [place] [address] Sep, [facility] [place] [facility] [address] [id number] [place] [address] Sep, [facility] [place] [facility] [address] [id number] [place] [address] Sep, [facility] [place] [facility] [address] [id number] [place] [address] Sep, [facility] [place] [facility] [address] [id number] [place] [address] Sep, [facility] [place] [facility] [address] [id number] [place] [address] Sep, [facility] [place] [facility] [address] [id number] [place] [address] Sep, [facility] [place] [facility] [address] [id number] [place] [address] Sep, [facility] [place] [facility] [address] [id number] [place] [address] Sep, [facility] [place] [facility] [address] [id number] [place] [address] Sep, [facility] [place] [facility] [address] [id number], [place] [address] Sep, [facility] [place] [facility] [address] [id number], [place] [address] Sep, [facility] [place] [facility] [address] [id number] [place] [address] Sep, [facility] [place] [facility] [address] [id number] [place] [address]- [address] 09 Sep, 2013 [facility] [place] [facility] [address] [id number] [place] [address] Sep, [facility] [place] [facility] [address] [id number] [place] [address] 164[address] Sep, [facility] [address] [id number] [place] [address] Sep, [facility] [place] [facility] [address] [id number] [place] [address] Sep, [facility] [address] [id number] [place] [address] Sep, [facility] [place] [facility] [address] [id number] [place] [address] Sep, [facility] [address] [id number] [place] [address] Sep, [facility] [address] [id number] [place] [address] August, [facility] [place] [facility] [address] [id number] [place] [address] August, [facility] [address] [id number] [place] [address] August, [facility] [place] [facility] [address] [id number] [place] [address] August, [facility] [address] [id number] [place] [address] August, [facility] [place] [facility] [address] [id number] [place] [address] August, [facility] [place] [facility] [address] [id number] [place] [address] August, [facility] [place] [facility] [address] [id number] [place] [address] August, [facility] [place] [facility] [address] [id number] [place] [address] August, [facility] [place] [facility] [address] [id number] [place] [address] August, [facility] [place] [facility] [address] [id number] [place] [address] August, [facility] [place] [facility] [address] [id number] [place] [address] Jul, [facility] [place] [facility] [address] [id number] [place] [address] Jul, [facility] [place] [facility] [address] [id number] [place] [address] Jul, [facility] [place] [facility] [address] [id number] [place] [address] Jul, [facility] [place] [facility] [address] [id number] [place] [address] Jul, [facility] [place] [facility] [address] [id number] [place] [address] Jul, [facility] [place] [facility] [address] [id number] [place] [address] Jul, [facility] [place] [facility] [address] [id number] [place] [address] Jul, [facility] [place] [facility] [address] [id number] [place] [address]- [address] Jul, [facility] [place] [facility] [address] [id number] [place] [address] Jul, [facility] [place] [facility] [address] [id number] [place] [address]- [address] 16 Jul, 2013 [facility] [place] [facility] [address] [id number] [place] [address]- [address] Jul, [facility] [place] [facility] [address] [id number] [place] [address]- [address] Jul, [facility] [place] [facility] [address] [id number] [place] [address]- [address] Jul, [facility] [place] [facility] [address] [id number] [place] [address]- 0851 Jul, [facility] [place] [facility] [address] [id number] [place] [address]- [address] Jul, [facility] [place] [facility] [address] [id number] [place] [address]- 277[address] Jul, [facility] [place] [facility] [address] [id number] [place] [address]- 87[address] Jul, [facility] [place] [facility] [address] [id number] [place] [address]- 26[address] Jul, [facility] [place] [facility] [address] [id number] [place] [address]- 45[address] Jul, [facility] [place] [facility] [address] [id number] [place] [address]- [address] Jul, [facility] [place] [facility] [address] [id number] [place] [address]- 95[address] Jul, [facility] [place] [facility] [address] [id number] [place] [address]- 46[address] Jul, [facility] [place] [facility] [address] [id number] [place] [address]- [address] Jun, [facility] [place] [facility] [address] [id number] [place] [address]- 7[address] Jun, [facility] [place] [facility] [address] [id number] [place] [address]- 1070 Jun, [facility] [place] [facility] [address] [id number] [place] [address]- 87[address] Jun, [facility] [place] [facility] [address] [id number] [place] [address]- [address] Jun, [facility] [place] [facility] [address] [id number] [place] [address]- [address]107 Jun, [facility] [place] [facility] [address] [id number] [place] [address]- 1498 Jun, [facility] [place] [facility] [address] [id number] [place] [address]- 3910 Jun, [facility] [place] [facility] [address] [id number] [place] [address]- 3905 18 Jun, 2013 [facility] [place] [facility] [address] [id number] [place] [address]- 58[address] 18 Jun, 2013 [facility] [place] [facility] [address] [id number] [place] [address]- 78[address] Jun, [facility] [place] [facility] [address] [id number] [place] [address]- [address] Jun, [facility] [place] [facility] [address] [id number] [place] [address] 18 May, 2013 [facility] [place] [facility] [address] [id number] [place] [address] May, [facility] [place] [facility] [address] [id number] [place] [address] 4679 Apr, [facility] [place] [facility] [address] [id number] [place] [address] Apr, [facility] [place] [facility] [address] [id number] [place] [address] 1683 30 Apr, 2013 [facility] [place] [facility] [address] [id number] [place] [address] 37[address] Apr, [facility] [place] [facility] [address] [id number] [place] [address] 7818 Apr, [facility] [place] [facility] [address] [id number] [place] [address]- 490[address] 27 Apr, 2013 [facility] [place] [facility] [address] [id number] [place] [address] 1090 Apr, [facility] [place] [facility] [address] [id number] [place] [address] 2036 20 Apr, 2013 [facility] [place] [facility] [address] [id number] [place] [address] 1000 Apr, [facility] [address] [id number] [place] [address] 7649 Apr, [facility] [place] [facility] [address] [id number] [place] [address]- 7836 Apr, [facility] [place] [facility] [address] [id number] [place] [address] Mar, [facility] [place] [facility] [address] [id number] [place] [address] 5449 Mar, [facility] [place] [facility] [address] [id number] [place] [address] 1693 Mar, [facility] [place] [facility] [address] [id number] [place] [address]- 6547 Mar, [facility] [place] [facility] [address] [id number] [place] [address]- 6880 Feb, [facility] [place] [facility] [address] [id number][place] [address] 2667 Feb, [facility] [place] [facility] [address] [id number], [place] [address] 59[address] Feb, [facility] [place] [facility] [address] [id number], [place] [address] 57[address] Feb, [facility] [place] [facility] [address] [id number][place] [address]- 7283 Feb, [facility] [place] [facility] [address] [id number], [place] [address] 4047 Feb, [facility] [place] [facility] [address] [id number][place] [address]- 3655 Feb, [facility] [place] [facility] [address] [id number], [place] [address] 9130 Feb, [facility] [place] [facility] [address] [id number], [place] [address] 6487 Feb, [facility] [place] [facility] [address] [id number] [place] [address]- 3473 Feb, [facility] [place] [facility] [address] [id number] [place] [address]- 3206 Feb, [facility] [place] [facility] [address] [id number] [place] [address]- 0574 Jan, [facility] [place] [facility] [address] [id number] [place] [address]- 1239 Jan, [facility] [place] [facility] [address] [id number] [place] [address]- 3265 Jan, [facility] [place] [facility] [address] [id number] [place] [address]- 4545 Jan, [facility] [place] [facility] [address] [id number] [place] [address]- 9865 Jan, [facility] [place] [facility] [address] [id number] [place] [address]- 3251 Jan, [facility] [place] [facility] [address] [id number] [place] [address]- 2596 Jan, [facility] [place] [facility] [address] [id number] [place] [address]- 9185 Jan, [facility] [place] [facility] [address] [id number] [place] [address]- 2744 30 Sep, 2012 [facility] [place] [facility] [address] [id number] [place] [address] 2000 25 Sep, 2012 [facility] [place] [facility] [address] [id number] [place] [address]- 5583 18 Sep, 2012 [facility] [place] [facility] [address] [id number] [place] [address]- 7491 17 Sep, 2012 [facility] [place] [facility] [address] [id number] [place] [address]- 2544 17 Sep, 2012 [facility] [place] [facility] [address] [id number] [place] [address]- 6318 16 Dec, 2012 [facility] [place] [facility] [address] [id number] [place] [address]- 6186 13 Dec, 2012 [facility] [place] [facility] [address] [id number] [place] [address]- 3213 11 Dec, 2012 [facility] [place] [facility] [address] [id number] [place] [address]- 5705 05 Dec, 2012 [facility] [place] [facility] [address] [id number] [place] [address]- 6454 04 Dec, 2012 [facility] [address] [id number] [place] [address]- 9893 30 Nov, 2012 [facility] [place] [facility] [address] [id number] [place] [address]- 0376 Nov, [facility] [address] [id number] [place] [address]- 7888 Nov, [facility] [address] [id number] [place] [address]- 2493 Nov, [facility] [place] [facility] [address] [id number] [place] [address]- 9995 Nov, [facility] [place] [facility] [address] [id number] [place] [address]- 0916 Nov, [facility] [place] [facility] [address] [id number] [place] [address]- 6333 Nov, [facility] [place] [facility] [address] [id number] [place] [address]- 4489 Oct, [facility] [place] [facility] [address] [id number] [place] [address]- 7382 Oct, [facility] [place] [facility] [address] [id number] [place] [address]- 8471 Oct, [facility] [place] [facility] [address] [id number] [place] [address] 4904 Oct, [facility] [place] [facility] [address] [id number] [place] [address]- 5938 15 Oct, 2012 [facility] [address] [id number] [place] [address]- 2878 Oct, [facility] [place] [facility] [address] [id number] [place] [address]- 6141 Sep, [facility] [place] [facility] [address] [id number] [place] [address]- 4349 Sep, [facility] [place] [facility] [address] [id number] [place] [address]- 0300 Sep, [facility] [place] [facility] [address] [id number] [place] [address]- 8619 14 Sep, 2012 [facility] [place] [facility] [address] [id number] [place] [address]- 1274 Sep, [facility] [place] [facility] [address] [id number] [place] [address]- 7871 Sep, [facility] [place] [facility] [address] [id number] [place] [address]- 8864 Sep, [facility] [place] [facility] [address] [id number] [place] [address]- 8305 Sep, [facility] [place] [facility] [address] [id number] [place] [address]- 4290 Sep, [facility] [place] [facility] [address] [id number] [place] [address]- 8595 August, [facility] [place] [facility] [address] [id number] [place] [address]- 1862 August, [facility] [place] [facility] [address] [id number] [place] [address]- 9436 August, [facility] [place] [facility] [address] [id number] [place] [address]- 0863 August, [facility] [place] [facility] [address] [id number] [place] [address]- 6311 August, [facility] [place] [facility] [address] [id number] [place] [address]- 2546 August, [facility] [address] [id number] [place] [address]- 4936 August, [facility] [address] [id number] [place] [address]- 2546 August, [facility] [address] [id number] [place] [address]- 0456 Jul, [facility] [address] [id number] [place] [address]- 2366 Jul, [facility] [address] [place] [id number] Jul [facility] [address] [id number] [place] [address]- 4696 Jun, [facility] [address] [id number] [place] [address]- 7236 Jun, [facility] [address] [id number] [place] [address]- 0096 Jun, [facility] [address] [id number] [place] [address]- 5556 Jun, [facility] [address] [facility] [id number] [place] [address]- 2976 Jun, [facility] [address] [id number] [place] [address]- 2546 Jun, [facility] [address] [id number] [place] [address]- 2546 May, [facility] [address] [id number] [place] [address]- 7556 May, [facility] [address] [id number] [place] [address]- 2546 May, [facility] [address] [id number] [place] [address]- 2546 May, [facility] [place] [facility] [address] [id number] [place] [address]- 5915 May, [facility] [address] [id number] [place] [address]- 2116 Apr, [facility] [address] [id number] [place] [address]- 0123 Apr, [facility] [address] [id number] [place] [address]- 8469 Apr, [facility] [address] [id number] [place] [address]- 4339 Apr, [facility] [address] [id number] [place] [address]- 1722 Apr, [facility] [address] [id number] [place] [address]- 8044 Apr, [facility] [address] [id number] [place] [address]- 1525 Mar, [facility] [address] [id number] [place] [address]- 8591 Mar, [facility] [address] [id number] [place] [address]- 0404 Mar, [facility] [address] [id number] [place] [address]- 1188 Mar, [facility] [address] [id number] [place] [address]- 3538 Mar, [facility] [place] [facility] [address] [id number] [place] 4660 18 Mar, 2012 [facility] [place] [facility] [address] [id number] [place] [address]- 2693 18 Mar, 2012 [facility] [place] [facility] [address] [id number] [place] [address]- 1945 10 Mar, 2012 [facility] [place] [facility] [address] [id number], [place] [address]- 7346 Mar, [facility] [place] [facility] [address] [id number] [place] [address]- 7576 Mar, [facility] [place] [facility] [address] [id number] [place] [address]- 4095 Mar, [facility] [place] [facility] [address] [id number] [place] [address]- 5210 Feb, [facility] [place] [facility] [address] [id number] [place] [address]- 3297 Feb, [facility] [place] [facility] [address] [id number] [place] [address]- 4870 Feb, [facility] [place] [facility] [address] [id number] [place] [address]- 4148 Feb, [facility] [place] [facility] [address] [id number] [place] [address]- 7424 Feb, [facility] [place] [facility] [address] [id number] [place] [address]- 9030 Feb, [facility] [place] [facility] [address] [id number] [place] [address]- 8526 Feb, [facility] [place] [facility] [address] [facility] [id number] [place] [address]- 6943 Feb, [facility] [place] [facility] [address] [id number], [place] [address]- 8145 Feb, [facility] [place] [facility] [address] [id number], [place] [address]- 3696 Feb, [facility] [place] [facility] [address] [id number], [place] [address]- 9524 Feb, [facility] [place] [facility] [address] [id number] [place] [address]- 9702 Jan, [facility] [place] [facility] [address] [facility] [id number] [place] [address]- 7149 Jan, [facility] [place] [facility] [address] [id number] [place] [address]- 5903 Jan, [facility] [place] [facility] [address] [id number] [place] [address]- 1053 Jan, [facility] [place] [facility] [address] [id number] [place] [address]- 0996 Jan, [facility] [place] [facility] [address] [id number] [place] [address]- 9186 Jan, [facility] [place] [facility] [address] [id number] [place] [address]- 8766 Jan, [facility] [place] [facility] [address] [id number] [place] [address]- 4046 24 Dec, 2011 [facility] [place] [facility] [address] [id number] [place] [address]- 2222 17 Dec, 2011 [facility] [place] [facility] [address] [id number] [place] [address]- 8073 13 Dec, 2011 [facility] [place] [facility] [address] [id number] [place] [address]- 9736 12 Dec, 2011 [facility] [place] [facility] [address] [id number] [place] [address]- 6238 Nov, [facility] [place] [facility] [address] [id number] [place] [address]- 3442 Nov, [facility] [place] [facility] [address] [id number] [place] [address]- 3498 17 Nov, 2011 [facility] [place] [facility] [address] [id number] [place] [address]- 0000 15 Nov, 2011 [facility] [place] [facility] [address] [id number] [place] [address]- 4015 14 Nov, 2011 [facility] [place] [facility] [address] [id number] [place] [address]- 4116 13 Nov, 2011 [facility] [place] [facility] [address] [id number] [place] [address]- 3119 Nov, [facility] [place] [facility] [address] [id number] [place] [address]- 8799 Nov, [facility] [place] [facility] [address] [id number] [place] [address]- 2029 Nov, [facility] [place] [facility] [address] [id number] [place] [address]- 8163 Nov, [facility] [place] [facility] [address] [id number] [place] [address]- 4092 Nov, [facility] [place] [facility] [address] [id number] [place] [address]- 8546 Nov, [facility] [place] [facility] [address] [id number] [place] [address]- 8714 Nov, [facility] [place] [facility] [address] [id number] [place] [address]- 8649 Oct, [facility] [place] [facility] [address] [id number] [place] [address]- 0828 Oct, [facility] [place] [facility] [address] [id number] [place] [address]- 6322 Oct, [facility] [place] [facility] [address] [id number] [place] [address]- 7689 Oct, [facility] [place] [facility] [address] [id number] [place] [address]- 7534 Oct, [facility] [place] [facility] [address] [id number] [place] [address]- 6663 Oct, [facility] [place] [facility] [address] [id number] [place] [address]- 7013 Oct, [facility] [place] [facility] [address] [id number] [place] [address]- 0131 Oct, [facility] [place] [facility] [address] [id number] [place] [address]- 3982 Oct, [facility] [place] [facility] [address] [id number] [place] [address]- 5938 Sep, [facility] [place] [facility] [address] [id number] [place] [address]- 2985 Sep, [facility] [place] [facility] [address] [id number] [place] [address]- 9056 Sep, [facility] [place] [facility] [address] [id number] [place] [address]- 7996 Sep, [facility] [place] [facility] [address] [id number] [place] [address]- 4532 Sep, [facility] [place] [facility] [address] [id number] [place] [address]- 1509 Sep, [facility] [place] [facility] [address] [id number] [place] [address]- 1282 Sep, [facility] [place] [facility] [address] [id number] [place] [address]- 3423 Sep, [facility] [place] [facility] [address] [id number] [place] [address]- 1295 August, [facility] [place] [facility] [address] [id number] [place] [address]- 5969 August, [facility] [place] [facility] [address] [id number] [place] [address]- 8241 August, [facility] [place] [facility] [address] [id number] [place] [address]- 0874 August, [facility] [place] [facility] [address] [id number] [place] [address]- 1376 August, [facility] [place] [facility] [address] [id number] [place] [address]- 7622 August, [facility] [place] [facility] [address] [id number] [place] [address]- 3698 August, [facility] [place] [facility] [address] [id number] [place] [address]- 0505 August, [facility] [place] [facility] [address] [facility] [id number] [place] [address]131 August, [facility] [address] [facility] [id number], [place] [address]- 7204 August, [facility] [address] [facility] [id number], [place] [address]- 3974 August, [facility] [address] [facility] [id number][place] [address]- 5874 August, [facility] [address] [facility] [id number], [place] [address]- 6247 Oct, IMMUNIZATIONS No Known Immunizations SOCIAL HISTORY [...] Hospitalization History suicidal ideations-[place] 12/28 Hospitalization History hypoxia--[facility] 02/13/2016 Hospitalization History shortness of breath at june 2016 Hospitalization History Shortness of breath at august 2016 Hospitalization History SOB, chest pain at 12/2016
== END 2018-02-11 13:26 | disposition home or self-care (01) ==
LOC: EDUNIT# 11:34 → ER 11:35
DX: S46.912A Strain of unspecified muscle, fascia and tendon at shoulder and upper arm level, left arm, initial encounter (principal); J44.9 Chronic obstructive pulmonary disease, unspecified; G47.30 Sleep apnea, unspecified; E78.00 Pure hypercholesterolemia, unspecified; I10 Essential (primary) hypertension; K21.9 Gastro-esophageal reflux disease without esophagitis; E11.9 Type 2 diabetes mellitus without complications; F41.9 Anxiety disorder, unspecified; F32.9 Major depressive disorder, single episode, unspecified; Z79.51 Long term (current) use of inhaled steroids; Z91.14 Patient's other noncompliance with medication regimen; Z80.0 Family history of malignant neoplasm of digestive organs; Z82.49 Family history of ischemic heart disease and other diseases of the circulatory system; Z87.19 Personal history of other diseases of the digestive system; Z79.82 Long term (current) use of aspirin; Z79.4 Long term (current) use of insulin; Z87.891 Personal history of nicotine dependence; Z90.89 Acquired absence of other organs; W19.XXXA Unspecified fall, initial encounter
CPT/HCPCS: 36415; 71046; 73030; 82962; 84484; 93005

== ENCOUNTER → 2018-04-16 | Outpatient (CLI) | payer MEDICAID ==
[~2018-04-16] MED LIST changes: +TRAM50TA2 PO
--- NOTE | 2018-04-16 12:31 | Diagnostic Imaging Report ---
INDICATION: Right wrist pain after a fall 3 views of the right wrist show no fracture, dislocation or other acute abnormalities. IMPRESSION: Negative right wrist. Dictated by: Dictated on workstation # [id number]
--- NOTE | 2018-04-16 12:32 | Diagnostic Imaging Report ---
INDICATION: Right wrist pain after a fall AP and lateral views of the right forearm show no fracture or dislocation. IMPRESSION: Negative right forearm. Dictated by: Dictated on workstation # [id number]
== END ==
LOC: RAD 11:24
PROVIDERS: ATTEND Family Medicine
DX: M25.531 Pain in right wrist (principal); W19.XXXA Unspecified fall, initial encounter
CPT/HCPCS: 73090; 73110

== ENCOUNTER 2018-06-08 12:46 | Outpatient (RCR) | payer MEDICAID ==
[~2018-06-08 12:46] MED LIST changes: -GEMF600T4 PO; +GEMF600T8 PO
== END 2018-09-06 | disposition home or self-care (01) ==
LOC: PULM 12:46
PROVIDERS: ATTEND Family Medicine
DX: J98.4 Other disorders of lung (principal); E66.2 Morbid (severe) obesity with alveolar hypoventilation; Z68.45 Body mass index [BMI] 70 or greater, adult
CPT/HCPCS: 99211

== ENCOUNTER 2018-07-17 12:00 | Emergency (ER) | payer MEDICAID ==
[~2018-07-17] VITALS: Ht 152.4 cm; Wt 185.5 kg
[2018-07-17 13:06] LABS: BASOPHILS % (AUTO) 0 % (0-10); EOSINOPHILS # (AUTO) 0.1 10^3/uL (0.0-0.3); EOSINOPHILS % (AUTO) 1 % (0-10); HEMATOCRIT 41 % (35-52); HEMOGLOBIN 13.7 G/DL (11.5-16.0); LYMPHOCYTES # (AUTO) 1.8 X 10^3 (1.0-4.0); LYMPHOCYTES % (AUTO) 26 % (12-44); MEAN CORPUSCULAR HEMOGLOBIN 29 PG (25-34); MEAN CORPUSCULAR HGB CONC 34 G/DL (32-36); MEAN CORPUSCULAR VOLUME 86 FL (80-99); MEAN PLATELET VOLUME 10.5 FL (7.4-10.4); MONOCYTES # (AUTO) 0.5 X 10^3 (0.0-1.0); MONOCYTES % (AUTO) 7 % (0-12); NEUTROPHILS # (AUTO) 4.5 X 10^3 (1.8-7.8); NEUTROPHILS % (AUTO) 66 % (42-75); PLATELET COUNT 246 10^3/uL (130-400); RED CELL DISTRIBUTION WIDTH 16.2 % (10.0-14.5); WHITE BLOOD COUNT 6.7 10^3/uL (4.3-11.0)
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
[2018-07-17 13:40] LABS: ACETAMINOPHEN < 10 UG/ML (10-30); ALANINE AMINOTRANSFERASE 15 U/L (0-55); ALKALINE PHOSPHATASE 108 U/L (40-136); BILIRUBIN,TOTAL 0.3 MG/DL (0.1-1.0); BUN/CREATININE RATIO 16; CALCIUM 9.9 MG/DL (8.5-10.1); CARBON DIOXIDE 21 MMOL/L (21-32); CHLORIDE 103 MMOL/L (98-107); CREATININE SERUM 0.82 MG/DL (0.60-1.30); GFR ESTIMATED > 60; GLUCOSE 265 MG/DL (70-105); POTASSIUM 3.9 MMOL/L (3.6-5.0); SALICYLATE < 5.0 MG/DL (5.0-20.0); SODIUM 137 MMOL/L (135-145); TOTAL PROTEIN 7.3 GM/DL (6.4-8.2)
[2018-07-17] MEDS ORDERED: ONDANSETRON 4 MG (ZOFRAN) ORAL DISSOLVE TAB PO STA (13:41)
[2018-07-17] MEDS ORDERED: ACETAMINOPHEN 500 MG TAB (TYLENOL) PO ONE (13:45)
[2018-07-17 14:40] LABS: BILIRUBIN,URINE NEGATIVE (NEGATIVE); CLARITY,URINE CLEAR; COLOR,URINE YELLOW; GLUCOSE, URINE (UA) 4+ (NEGATIVE); KETONES,URINE NEGATIVE (NEGATIVE); LEUKOCYTE ESTERASE ,URINE 1+ (NEGATIVE); NITRITE,URINE NEGATIVE (NEGATIVE); PH,URINE 6 (5-9); PROTEIN,URINE 3+ (NEGATIVE); UROBILINOGEN,URINE NORMAL (NORMAL)
[2018-07-17 14:51] LABS: BACTERIA,URINE NEGATIVE /HPF; RBC,URINE 0-2 /HPF
[2018-07-17 15:22] LABS: AMPHETAMINE SCREEN, URINE POSITIVE (NEGATIVE); BARBITURATE SCREEN URINE NEGATIVE (NEGATIVE); BENZODIAZEPINES SCREEN URINE POSITIVE (NEGATIVE); CANNABINOID SCREEN, URINE NEGATIVE (NEGATIVE); COCAINE SCREEN URINE NEGATIVE (NEGATIVE); HCG,QUALITATIVE URINE NEGATIVE (NEGATIVE); METHADONE STAT NEGATIVE (NEGATIVE); METHAMPHETAMINE SCREEN URINE S POSITIVE (NEGATIVE); OPIATE SCREEN URINE NEGATIVE (NEGATIVE); OXYCODONE STAT NEGATIVE (NEGATIVE); PROPOXYPHENE STAT NEGATIVE (NEGATIVE); TRICYCLIC ANTIDEPRESSANTS SCRE NEGATIVE (NEGATIVE)
--- NOTE | 2018-07-17 17:01 | NUR ---
REPORT FROM TARIK BATRES
--- NOTE | 2018-07-17 17:14 | NUR ---
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
--- NOTE | 2018-07-17 17:37 | NUR ---
RASHAD PROVIDED FOR PT FROM MAINTENANCE
--- NOTE | 2018-07-17 17:54 | NUR ---
PODIATRIC TECHNICIAN TO ROOM AT THIS TIME
--- NOTE | 2018-07-17 18:45 | NUR ---
PT REQUESTING ANOTHER TRAY AT THIS TIME.
--- NOTE | 2018-07-17 18:54 | NUR ---
THIS RN CALLED EMIYL WEBER. LEFT MESSAGE W/ INTAKE NURSE. WAITING TO HEAR FROM BOTH EMILY ET DANNIE CONCERNING PLACEMENT
--- NOTE | 2018-07-17 20:31 | NUR ---
REPORT TO MARCY BATRES AT [facility]
[2018-07-17 20:39] VITALS: BP 152/91
--- NOTE | 2018-07-17 20:39 | NUR ---
JOSE A MELANIE HERE FOR PT
== END 2018-07-17 20:39 ==
LOC: EDUNIT# 12:00 → ER 12:01
DX: R45.851 Suicidal ideations (principal); R44.1 Visual hallucinations; J44.9 Chronic obstructive pulmonary disease, unspecified; G47.30 Sleep apnea, unspecified; E78.00 Pure hypercholesterolemia, unspecified; I10 Essential (primary) hypertension; E11.9 Type 2 diabetes mellitus without complications; F41.9 Anxiety disorder, unspecified; F32.9 Major depressive disorder, single episode, unspecified; K21.9 Gastro-esophageal reflux disease without esophagitis; Z87.19 Personal history of other diseases of the digestive system; Z87.440 Personal history of urinary (tract) infections; Z82.49 Family history of ischemic heart disease and other diseases of the circulatory system; Z80.0 Family history of malignant neoplasm of digestive organs; Z91.19 Patient's noncompliance with other medical treatment and regimen; Z79.4 Long term (current) use of insulin; Z79.82 Long term (current) use of aspirin; Z87.891 Personal history of nicotine dependence; Z90.89 Acquired absence of other organs; Z98.890 Other specified postprocedural states
CPT/HCPCS: 36415; 80053; 80306; 80320; 80329; 81000; 84443; 84703; 85025; 93005

== ENCOUNTER 2018-07-29 19:31 | Emergency (ER) | payer MEDICAID ==
[~2018-07-29] VITALS: Ht 152.4 cm; Wt 185.5 kg
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
[2018-07-29] MEDS ORDERED: IBUPROFEN 800 MG (MOTRIN) TAB PO ONE (19:45)
[2018-07-29] MEDS ORDERED: ACETAMINOPHEN 500 MG TAB (TYLENOL) PO ONE (19:45)
[2018-07-29 20:28] VITALS: BP 170/77
== END 2018-07-29 20:35 | disposition home or self-care (01) ==
LOC: EDUNIT# 19:31 → ER 19:32
DX: M25.511 Pain in right shoulder (principal); M54.5 Low back pain; J44.9 Chronic obstructive pulmonary disease, unspecified; G47.30 Sleep apnea, unspecified; E78.00 Pure hypercholesterolemia, unspecified; I10 Essential (primary) hypertension; E11.9 Type 2 diabetes mellitus without complications; F41.9 Anxiety disorder, unspecified; F32.9 Major depressive disorder, single episode, unspecified; F60.9 Personality disorder, unspecified; K21.9 Gastro-esophageal reflux disease without esophagitis; Z87.19 Personal history of other diseases of the digestive system; Z91.19 Patient's noncompliance with other medical treatment and regimen; Z79.4 Long term (current) use of insulin; Z80.0 Family history of malignant neoplasm of digestive organs; Z82.49 Family history of ischemic heart disease and other diseases of the circulatory system; Z79.82 Long term (current) use of aspirin; Z87.891 Personal history of nicotine dependence; Z90.89 Acquired absence of other organs; V47.6XXA Car passenger injured in collision with fixed or stationary object in traffic accident, initial encounter
CPT/HCPCS: 84703; 99283

== ENCOUNTER 2019-02-26 16:06 | Emergency (ER) | payer MEDICAID ==
[~2019-02-26] VITALS: Ht 152.4 cm; Wt 190.4 kg
[2019-02-26] MEDS ORDERED: ASPIRIN 81 MG CHEW (CHILDREN'S ASA) PO ONE (16:15)
--- NOTE | 2019-02-26 16:18 | ED Chest Pain ---
General Chief Complaint: Chest Pain Stated Complaint: LEGS SWELLING Source: patient Exam Limitations: no limitations History of Present Illness Date Seen by Provider: Feb 26, 2019 Time Seen by Provider: 16:15 Initial Comments To ER with bilateral lower extremity swelling despite use of Lasix and elevation. Her legs always swell but seems to be worse than usual now associated with some burning and redness. She has had worsening shortness of breath from baseline, she was formerly oxygen dependent, no longer oxygen dependent but overall over the past week feels increased shortness of breath. No fever no chills no cough. She's had chest pain constant for 3 days. Timing/Duration: changing over time Severity/Quality: moderate Location: central Radiation: no radiation Activities at Onset: none Prior CP/Workup: no prior chest pain ASA po MECHANICAL TECHNICIAN: No NTG SL MECHANICAL TECHNICIAN: No Associated Symptoms: shortness of breath Allergies and Home Medications Allergies Coded Allergies: No Known Drug Allergies (Unverified , 08/08/16) Home Medications Albuterol Sulfate 8.5 Gm Hfa.aer.ad, 2 PUFF IH Q4H PRN for SHORTNESS OF BREATH, (Reported) Aspirin/Acetaminophen/Caffeine 1 Each Tablet, 2 TAB PO BID PRN for PAIN-MILD, (Reported) Budesonide/Formoterol Fumarate 10.2 Gm Hfa.aer.ad, 2 PUFF IH BID, (Reported) Cetirizine HCl 10 Mg Tablet, 10 MG PO DAILY, (Reported) Folic Acid/Mv,Fe,Other Min 1 Each Tablet, 1 TAB PO DAILY, (Reported) Furosemide 40 Mg Tablet, 40 MG PO DAILY PRN for SWELLING, (Reported) Gemfibrozil 600 Mg Tablet, 600 MG PO BID, (Reported) Ibuprofen 600 Mg Tablet, 1,200 MG PO BID PRN for PAIN-MILD, (Reported) TAKES 2 (600MG) TABLETS Insulin Aspart 100 Unit/1 Ml Susp, 40 UNITS SQ AC, (Reported) Insulin Glargine,Hum.rec.anlog 100 Unit/1 Ml Vial, 52-53 UNITS SQ BID, (Reported) Ipratropium [place] 0.2 Mg/1 Ml Solution, 2 VIAL IH TID PRN for SHORTNESS OF BREATH, (Reported) UESE TWO VIALS PER TREATMENT Metformin HCl 1,000 Mg Tablet, 1,000 MG PO BID WITH MEALS, (Reported) Metolazone 2.5 Mg Tablet, 2.5 MG PO DAILY Prescribed by: PITER ESPINOZA on 12/29/16 0853 Montelukast Sodium 10 Mg Tablet, 10 MG PO DAILY, (Reported) Omeprazole 40 Mg Capsule.dr, 40 MG PO DAILY, (Reported) Pravastatin Sodium 40 Mg Tablet, 40 MG PO HS, (Reported) Pregabalin 150 Mg Capsule, 300 MG PO HS, (Reported) TAKES 2 (150 MG) CAPSULES Pregabalin 150 Mg Capsule, 150 MG PO 0800,1800, (Reported) Ranitidine HCl 150 Mg Tablet, 300 MG PO HS, (Reported) TAKES 2 (150 MG) TABLETS Sucralfate 1 Gm Tablet, 2 GM PO BID, (Reported) TAKES 2 (1GM) TABLETS Tramadol HCl 50 Mg Tablet, 50 MG PO Q6H PRN for PAIN Prescribed by: CECE DORADO on 02/11/18 1321 Patient Home Medication List Home Medication List Reviewed: Yes Review of Systems Review of Systems Constitutional: see HPI EENTM: No Symptoms Reported Respiratory: See HPI, Cough Cardiovascular: See HPI, Chest Pain Gastrointestinal: No Symptoms Reported Genitourinary: No Symptoms Reported Musculoskeletal: no symptoms reported Skin: see HPI Psychiatric/Neurological: No Symptoms Reported Endocrine: No Symptoms Reported Hematologic/Lymphatic: No Symptoms Reported Past Fjuvevr-Vuakss-Swiffg Hx Patient Social History Type Used: Cigarettes Former Smoker, Quit: Feb 12, 1999 2nd Hand Smoke Exposure: No Recent Foreign Travel: No Contact w/Someone Who Travel: No Recent Hopitalizations: No Immunizations Up To Date Tetanus Booster (TDap): Unknown PED Vaccines UTD: No Date of Pneumonia Vaccine: Jan 13, 2012 Date of Influenza Vaccine: Feb 26, 2012 Seasonal Allergies Seasonal Allergies: No Past Medical History Surgeries: Yes Adenoidectomy, Bladder Surgery, Tonsillectomy Respiratory: Yes Asthma, Sleep Apnea, COPD Currently Using CPAP: No (noncompliant) Currently Using BIPAP: Yes Cardiac: No Chronic Edema/Swelling, High Cholesterol, Hypertension Neurological: No Reproductive Disorders: No Female Reproductive Disorders: Denies Sexually Transmitted Disease: No HIV/AIDS: No Genitourinary: Yes (UTI) Gastrointestinal: No Gastroesophageal Reflux, Chronic Constipation Musculoskeletal: No Chronic Back Pain Endocrine: Yes Diabetes, Insulin dep HEENT: No Loss of Vision: Denies Hearing Impairment: Denies Cancer: No Psychosocial: Yes Anxiety, Personality Disorder, Depression Integumentary: Yes (Diabetic ulcers) Eczema Blood Disorders: No Adverse Reaction/Blood Tranf: No Family Medical History Cancer 19 FATHER, Onset:Unknown 19 MOTHER, Onset:Unknown Cancer of colon 19 FATHER, Onset:Unknown 19 MOTHER, Onset:Unknown Family history: Cardiovascular disease 19 FATHER, Onset:Unknown 19 MOTHER, Onset:Unknown Family history: Diabetes mellitus 19 FATHER, Onset:Unknown 19 MOTHER, Onset:Unknown Heart Disease, Seizures Physical Exam Vital Signs Vital Signs - First Documented 02/26/19 16:09 Temp 36.3 Pulse 105 Resp 7 B/P (MAP) 140/93 (109) Pulse Ox 94 O2 Delivery Room Air Capillary Refill : Height, Weight, BMI Height: 5'0" Weight: 409lbs. 0oz. 185.544982qi; 79.9 BMI Method:Stated General Appearance: No Apparent Distress, WD/WN, Obese HEENT: PERRL/EOMI Neck: Full Range of Motion, Normal Inspection Respiratory: Normal Breath Sounds, No Accessory Muscle Use, No Respiratory Distress Cardiovascular: Normal Peripheral Pulses, Tachycardia (105) Gastrointestinal: Normal Bowel Sounds, Non Tender, Soft Neurologic/Psychiatric: Alert, Oriented x3 Skin: Normal Color, Warm/Dry Progress/Results/Core Measures Results/Orders Lab Results Laboratory Tests Test 02/26/19 16:38 Range/Units White Blood Count 4.4 4.3-11.0 10^3/uL Red Blood Count 4.00 L 4.35-5.85 10^6/uL Hemoglobin 11.7 11.5-16.0 G/DL Hematocrit 36 35-52 % Mean Corpuscular Volume 90 80-99 FL Mean Corpuscular Hemoglobin 29 25-34 PG Mean Corpuscular Hemoglobin Concent 32 32-36 G/DL Red Cell Distribution Width 14.9 H 10.0-14.5 % Platelet Count 205 130-400 10^3/uL Mean Platelet Volume 10.1 7.4-10.4 FL Neutrophils (%) (Auto) 57 42-75 % Lymphocytes (%) (Auto) 34 12-44 % Monocytes (%) (Auto) 6 0-12 % Eosinophils (%) (Auto) 2 0-10 % Basophils (%) (Auto) 1 0-10 % Neutrophils # (Auto) 2.5 1.8-7.8 X 10^3 Lymphocytes # (Auto) 1.5 1.0-4.0 X 10^3 Monocytes # (Auto) 0.3 0.0-1.0 X 10^3 Eosinophils # (Auto) 0.1 0.0-0.3 10^3/uL Basophils # (Auto) 0.0 0.0-0.1 10^3/uL Prothrombin Time 12.6 12.2-14.7 SEC INR Comment 0.9 0.8-1.4 Activated Partial Thromboplast Time 27 24-35 SEC D-Dimer 0.37 0.00-0.49 UG/ML Sodium Level 137 135-145 MMOL/L Potassium Level 4.3 3.6-5.0 MMOL/L Chloride Level 101 98-107 MMOL/L Carbon Dioxide Level 25 21-32 MMOL/L Anion Gap 11 5-14 MMOL/L Blood Urea Nitrogen 21 H 7-18 MG/DL Creatinine 0.91 0.60-1.30 MG/DL Estimat Glomerular Filtration Rate > 60 BUN/Creatinine Ratio 23 Glucose Level 342 H 70-105 MG/DL Calcium Level 8.9 8.5-10.1 MG/DL Corrected Calcium 9.2 8.5-10.1 MG/DL Magnesium Level 1.8 1.6-2.4 MG/DL Total Bilirubin 0.2 0.1-1.0 MG/DL Aspartate Amino Transf (AST/SGOT) 19 5-34 U/L Alanine Aminotransferase (ALT/SGPT) 14 0-55 U/L Alkaline Phosphatase 112 40-136 U/L Myoglobin 26.8 10.0-92.0 NG/ML Troponin I < 0.028 <0.028 NG/ML B-Type Natriuretic Peptide 10.8 <100.0 PG/ML Total Protein 6.8 6.4-8.2 GM/DL Albumin 3.6 3.2-4.5 GM/DL My Orders Orders - DAVE MARIEE APRN Cbc With Automated Diff (02/26/19 16:14) Magnesium (02/26/19 16:14) Chest 1 View, Ap/Pa Only (02/26/19 16:14) Ekg Tracing (02/26/19 16:14) Cardiac Profile 1 (02/26/19 16:14) Comprehensive Metabolic Panel (02/26/19 16:14) Myoglobin Serum (02/26/19 16:14) Protime With Inr (02/26/19 16:14) Partial Thromboplastin Time (02/26/19 16:14) O2 (02/26/19 16:14) Monitor-Rhythm Ecg Trace Only (02/26/19 16:14) Lipid Panel (02/27/19 06:00) Ed Iv/Invasive Line Start (02/26/19 16:14) BNP (02/26/19 16:14) Fibrin Degradation Products (02/26/19 16:14) Aspirin Chewable Tablet (Baby Aspirin Ch (02/26/19 16:15) Medications Given in ED Current Medications Medications Dose Ordered Sig/Carla Route Start Time Stop Time Status Last Admin Dose Admin Aspirin 324 mg ONCE ONCE PO 02/26/19 16:15 02/26/19 16:16 DC 02/26/19 16:27 324 MG Vital Signs/I&O 02/26/19 02/26/19 16:09 16:09 Temp 36.3 Pulse 105 Resp 7 B/P (MAP) 140/93 (109) Pulse Ox 94 O2 Delivery Room Air Room Air Diagnostic Imaging Diagonstic Imaging: Xray Plain Films/CT/US/NM/MRI: chest Comments NAME: ISAMAR BOYLE I MED REC#: [id number] PT STATUS: REG ER : 1975 PHYSICIAN: DAVE MARIEE APRN ADMIT DATE: 02/26/19/ER Draft POSDate of Exam:02/26/19 CHEST 1 VIEW, AP/PA ONLY PATIENT HISTORY: Chest pain. TECHNIQUE: Frontal view of the chest. COMPARISON: 02/11/2018. FINDINGS: Lung volumes are normal. No focal consolidation is seen. There is no pleural effusion or pneumothorax. There is haziness overlying the lungs, bilaterally, likely due to overlying soft tissue. The cardiac silhouette is normal in size. IMPRESSION: No acute pulmonary abnormality is seen. Dictated on workstation # [id number] Dict: 02/26/191644 Trans: 02/26/191647 PJE [id number] Interpreted by: TROY SAMPSON MD Electronically signed by: Departure Impression Primary Impression: Morbid obesity Additional Impressions: Chronic Dyspnea Cellulitis of both lower extremities Disposition: 01 HOME, SELF-CARE Condition: Stable Departure-Patient Inst. Decision time for Depature: 17:41 Referrals: ZAINAB HESS MD (PCP/Family) Primary Care Physician Patient Instructions: Cellulitis (Skin Infection), Adult (DC) Add. Discharge Instructions: . Antibiotics as directed 2 follow-up with her doctor next week 3. Return to ER for any worsening symptoms or other concerns. Scripts Amoxicillin/Potassium Clav (Augmentin 875-125 Tablet) 1 Each Tablet 1 EACH PO BID, #14 TAB 0 Refills Prov: DAVE MARIEE APRN 02/26/19 DAVE MARIEE APRN Feb 26, 2019 16:17 POS
[2019-02-26 16:46] LABS: BASOPHILS % (AUTO) 1 % (0-10); EOSINOPHILS # (AUTO) 0.1 10^3/uL (0.0-0.3); EOSINOPHILS % (AUTO) 2 % (0-10); HEMATOCRIT 36 % (35-52); HEMOGLOBIN 11.7 G/DL (11.5-16.0); LYMPHOCYTES # (AUTO) 1.5 X 10^3 (1.0-4.0); LYMPHOCYTES % (AUTO) 34 % (12-44); MEAN CORPUSCULAR HEMOGLOBIN 29 PG (25-34); MEAN CORPUSCULAR HGB CONC 32 G/DL (32-36); MEAN CORPUSCULAR VOLUME 90 FL (80-99); MEAN PLATELET VOLUME 10.1 FL (7.4-10.4); MONOCYTES # (AUTO) 0.3 X 10^3 (0.0-1.0); MONOCYTES % (AUTO) 6 % (0-12); NEUTROPHILS # (AUTO) 2.5 X 10^3 (1.8-7.8); NEUTROPHILS % (AUTO) 57 % (42-75); PLATELET COUNT 205 10^3/uL (130-400); RED CELL DISTRIBUTION WIDTH 14.9 % (10.0-14.5); WHITE BLOOD COUNT 4.4 10^3/uL (4.3-11.0)
--- NOTE | 2019-02-26 16:48 | Diagnostic Imaging Report ---
PATIENT HISTORY: Chest pain. TECHNIQUE: Frontal view of the chest. COMPARISON: 02/11/2018. FINDINGS: Lung volumes are normal. No focal consolidation is seen. There is no pleural effusion or pneumothorax. There is haziness overlying the lungs, bilaterally, likely due to overlying soft tissue. The cardiac silhouette is normal in size. IMPRESSION: No acute pulmonary abnormality is seen. Dictated by: Dictated on workstation # [id number]
[2019-02-26 16:58] LABS: INR 0.9 (0.8-1.4); PROTHROMBIN TIME PATIENT 12.6 SEC (12.2-14.7)
[2019-02-26 17:04] LABS: ALANINE AMINOTRANSFERASE 14 U/L (0-55); ALBUMIN 3.6 GM/DL (3.2-4.5); ALKALINE PHOSPHATASE 112 U/L (40-136); BILIRUBIN,TOTAL 0.2 MG/DL (0.1-1.0); BUN/CREATININE RATIO 23; CALCIUM 8.9 MG/DL (8.5-10.1); CARBON DIOXIDE 25 MMOL/L (21-32); CHLORIDE 101 MMOL/L (98-107); CREATININE SERUM 0.91 MG/DL (0.60-1.30); GFR ESTIMATED > 60; GLUCOSE 342 MG/DL (70-105); MAGNESIUM 1.8 MG/DL (1.6-2.4); POTASSIUM 4.3 MMOL/L (3.6-5.0); SODIUM 137 MMOL/L (135-145); TOTAL PROTEIN 6.8 GM/DL (6.4-8.2)
[2019-02-26] MEDS ORDERED: AMOX-358 PO ×2 (17:43→18:03)
[2019-02-26] MEDS ORDERED: AUGMENTIN 875 MG TAB (AMOXICILLIN/CLAVULANATE) PO SCH (17:45)
--- NOTE | 2019-02-26 17:50 | NUR ---
When discharging pt, pt had turned spacelab off.
[2019-02-26 17:59] VITALS: BP 140/93
== END 2019-02-26 18:00 | disposition home or self-care (01) ==
LOC: EDUNIT# 16:06 → ER 16:07
DX: L03.115 Cellulitis of right lower limb (principal); L03.116 Cellulitis of left lower limb; E66.01 Morbid (severe) obesity due to excess calories; R06.00 Dyspnea, unspecified; I10 Essential (primary) hypertension; E11.9 Type 2 diabetes mellitus without complications; E78.00 Pure hypercholesterolemia, unspecified; J44.9 Chronic obstructive pulmonary disease, unspecified; F41.9 Anxiety disorder, unspecified; F60.9 Personality disorder, unspecified; F32.9 Major depressive disorder, single episode, unspecified; K21.9 Gastro-esophageal reflux disease without esophagitis; Z90.89 Acquired absence of other organs; Z68.45 Body mass index [BMI] 70 or greater, adult; Z79.82 Long term (current) use of aspirin; Z79.4 Long term (current) use of insulin; Z87.891 Personal history of nicotine dependence; Z82.49 Family history of ischemic heart disease and other diseases of the circulatory system
CPT/HCPCS: 36415; 71045; 80053; 83735; 83874; 83880; 84484; 85025; 85379; 85610; 85730; 93005; 93041

== ENCOUNTER 2021-03-21 20:09 | Emergency (ER) | payer MEDICAID ==
[~2021-03-21] VITALS: Ht 152.4 cm; Wt 191.0 kg
[~2021-03-21 20:09] MED LIST changes: +CYCL10TA25 PO; -GEMF600T8 PO; +GEMF600T88 PO; -LISI-552 PO; +LISI20TA26 PO; +MONT-40 PO; -MONT10TA24 PO; -OMEP40CA36 PO; +OMEP40CA6 PO; -TRAM50TA2 PO; +TRM50T PO
[2021-03-21] MEDS ORDERED: LACTATED RINGERS 1,000 ML IV STA (20:18)
[2021-03-21 20:25] LABS: BASOPHILS # (AUTO) 0.1 10^3/uL (0.0-0.1); BASOPHILS % (AUTO) 1 % (0-10); EOSINOPHILS # (AUTO) 0.3 10^3/uL (0.0-0.3); EOSINOPHILS % (AUTO) 3 % (0-10); HEMATOCRIT 40 % (35-52); HEMOGLOBIN 13.1 g/dL (11.5-16.0); LYMPHOCYTES # (AUTO) 2.1 10^3/uL (1.0-4.0); LYMPHOCYTES % (AUTO) 24 % (12-44); MEAN CORPUSCULAR HEMOGLOBIN 30 pg (25-34); MEAN CORPUSCULAR HGB CONC 33 g/dL (32-36); MEAN CORPUSCULAR VOLUME 91 fL (80-99); MEAN PLATELET VOLUME 10.3 fL (9.0-12.2); MONOCYTES # (AUTO) 0.6 10^3/uL (0.0-1.0); MONOCYTES % (AUTO) 6 % (0-12); NEUTROPHILS # (AUTO) 5.7 10^3/uL (1.8-7.8); NEUTROPHILS % (AUTO) 64 % (42-75); PLATELET COUNT 210 10^3/uL (130-400); WHITE BLOOD COUNT 8.9 10^3/uL (4.3-11.0)
--- NOTE | 2021-03-21 20:27 | ED Chest Pain ---
General Chief Complaint: Chest Pain Stated Complaint: CHEST PAIN Nursing Triage Note: BROUGHT IN BY [facility] FOR CHEST PAIN X4 DAYS, AFIB. Source: patient Exam Limitations: no limitations History of Present Illness Date Seen by Provider: Mar 21, 2021 Time Seen by Provider: 20:09 Initial Comments Here with report of chest pain for the last 4 days after having some vomiting antibiotics. She had bronchitis and currently is on a new antibiotic. She was tested for Covid and that is negative. She is also vaccinated. Does have history of atrial fibrillation and is tachycardic on arrival. Has had increasing shortness of breath recently. Takes Xarelto and has not missed doses of that. She is also on metoprolol 100 mg daily. States that she is taken that as well. Does have mild cough. Chest pain is central and sharp and nonradiating. No exacerbating or relieving factors. No vomiting over the last few days. Denies diarrhea. Reports eating and drinking okay. Timing/Duration: 3-4 days Severity/Quality: moderate, sharp Location: central Radiation: no radiation Prior CP/Workup: echocardiography ASA po UTILITY INSPECTOR: No NTG SL UTILITY INSPECTOR: No Associated Symptoms: No diaphoresis, No shortness of breath, No weakness Allergies and Home Medications Allergies Coded Allergies: No Known Drug Allergies (Unverified , 08/08/16) Patient Home Medication List Home Medication List Reviewed: Yes Albuterol Sulfate (Proair Hfa) 8.5 Gm Hfa.aer.ad, 2 PUFF IH Q4H PRN for SHORTNESS OF BREATH, (Reported) Entered as Reported by: RAFFI JONES on 09/05/15 1248 Amoxicillin/Potassium Clav (Augmentin 875-125 Tablet) 1 Each Tablet, 1 EACH PO BID Prescribed by: DAVE MARIEE on 02/26/19 1803 Aspirin/Acetaminophen/Caffeine (Excedrin Extra Strength Caplet) 1 Each Tablet, 2 TAB PO BID PRN for PAIN-MILD, (Reported) Entered as Reported by: ISAMAR MARTINEZ on 12/27/16 1538 Budesonide/Formoterol Fumarate (Symbicort 160-4.5 Mcg Inhaler) 10.2 Gm Hfa.aer.ad, 2 PUFF IH BID, (Reported) Entered as Reported by: RAFFI JONES on 09/05/15 1248 Cetirizine HCl (Cetirizine HCl) 10 Mg Tablet, 10 MG PO DAILY, (Reported) Entered as Reported by: ISAMAR MARTINEZ on 08/08/16 1454 Folic Acid/Mv,Fe,Other Min (One Daily For Women Tablet) 1 Each Tablet, 1 TAB PO DAILY, (Reported) Entered as Reported by: RAFFI JONES on 02/13/16 1508 Furosemide (Furosemide) 40 Mg Tablet, 40 MG PO DAILY PRN for SWELLING, (Reported) Entered as Reported by: ISAMAR MARTINEZ on 12/27/16 1538 Gemfibrozil (Gemfibrozil) 600 Mg Tablet, 600 MG PO BID, (Reported) Entered as Reported by: RAFFI JONES on 09/05/15 1248 Ibuprofen (Ibuprofen) 600 Mg Tablet, 1,200 MG PO BID PRN for PAIN-MILD, (Reported) Entered as Reported by: RAFFI JONES on 09/05/15 124 Insulin Aspart (Novolog) 100 Unit/1 Ml Susp, 40 UNITS SQ AC, (Reported) Entered as Reported by: RAFFI JONES on 09/05/15 1248 Insulin Glargine,Hum.rec.anlog (Lantus) 100 Unit/1 Ml Vial, 52-53 UNITS SQ BID, (Reported) Entered as Reported by: RAFFI JONES on 09/05/15 1248 Ipratropium [place] (Ipratropium [place]) 0.2 Mg/1 Ml Solution, 2 VIAL IH TID PRN for SHORTNESS OF BREATH, (Reported) Entered as Reported by: RAFFI JONES on 09/05/15 1248 Metformin HCl (Metformin HCl) 1,000 Mg Tablet, 1,000 MG PO BID WITH MEALS, (Reported) Entered as Reported by: RAFFI JONES on 09/05/15 1248 Metolazone (Metolazone) 2.5 Mg Tablet, 2.5 MG PO DAILY Prescribed by: PITER ESPINOZA on 12/29/16 0853 Montelukast Sodium (Montelukast Sodium) 10 Mg Tablet, 10 MG PO DAILY, (Reported) Entered as Reported by: RAFFI JONES on 09/05/15 1248 Omeprazole (Omeprazole) 40 Mg Capsule.dr, 40 MG PO DAILY, (Reported) Entered as Reported by: RAFFI JONES on 09/05/15 1248 Pravastatin Sodium (Pravastatin Sodium) 40 Mg Tablet, 40 MG PO HS, (Reported) Entered as Reported by: RAFFI JONES on 09/05/15 1302 Pregabalin (Lyrica) 150 Mg Capsule, 300 MG PO HS, (Reported) Entered as Reported by: RAFFI JONES on 09/05/15 1248 Pregabalin (Lyrica) 150 Mg Capsule, 150 MG PO 0800,1800, (Reported) Entered as Reported by: ISAMAR MARTINEZ on 12/27/16 1538 Ranitidine HCl (Ranitidine HCl) 150 Mg Tablet, 300 MG PO HS, (Reported) Entered as Reported by: RAFFI JONES on 09/05/15 1248 Sucralfate (Sucralfate) 1 Gm Tablet, 2 GM PO BID, (Reported) Entered as Reported by: JOHN ORTEGA on 08/06/16 1244 Tramadol HCl (Tramadol HCl) 50 Mg Tablet, 50 MG PO Q6H PRN for PAIN Prescribed by: CECE DORADO on 02/11/18 1321 Review of Systems Review of Systems Constitutional: see HPI; No chills, No fever EENTM: No Nose Congestion, No Nose Pain Respiratory: Cough; Denies Shortness of Air Cardiovascular: Chest Pain; Denies Edema; Irregular Heart Rate Gastrointestinal: Denies Abdominal Pain; Nausea, Vomiting Genitourinary: No Symptoms Reported Musculoskeletal: No back pain, No muscle pain Skin: no symptoms reported All Other Systems Reviewed Negative Unless Noted: Yes Past Royvjyd-Lkccti-Ipnwut Hx Patient Social History Tobacco Use?: No Use of E-Cig and/or Vaping dev: No Substance use?: No Alcohol Use?: No Pt feels they are or have been: No Immunizations Up To Date Tetanus Booster (TDap): Unknown PED Vaccines UTD: No First/Initial COVID19 Vaccinat: 09/01 Second COVID19 Vaccination [place]: 10/02 Seasonal Allergies Seasonal Allergies: No Past Medical History Surgery/Hospitalization HX: HTN, AFIB, ASTHMA, GERD, IDDM Surgeries: Yes Adenoidectomy, Bladder Surgery, Tonsillectomy Respiratory: Yes Asthma, Sleep Apnea, COPD Currently Using CPAP: No (noncompliant) Currently Using BIPAP: Yes Cardiac: No Chronic Edema/Swelling, High Cholesterol, Hypertension Neurological: No Reproductive Disorders: No Female Reproductive Disorders: Denies Sexually Transmitted Disease: No HIV/AIDS: No Genitourinary: Yes (UTI) Gastrointestinal: No Gastroesophageal Reflux, Chronic Constipation Musculoskeletal: No Chronic Back Pain Endocrine: Yes Diabetes, Insulin dep HEENT: No Loss of Vision: Denies Hearing Impairment: Denies Cancer: No Psychosocial: Yes Anxiety, Personality Disorder, Depression Integumentary: Yes (Diabetic ulcers) Eczema Blood Disorders: No Adverse Reaction/Blood Tranf: No Family Medical History Reviewed Nursing Family Hx Cancer 19 FATHER, Onset:Unknown 19 MOTHER, Onset:Unknown Cancer of colon 19 FATHER, Onset:Unknown 19 MOTHER, Onset:Unknown Family history: Cardiovascular disease 19 FATHER, Onset:Unknown 19 MOTHER, Onset:Unknown Family history: Diabetes mellitus 19 FATHER, Onset:Unknown 19 MOTHER, Onset:Unknown Heart Disease, Seizures Physical Exam Vital Signs Vital Signs - First Documented 03/21/21 20:09 Temp 36.3 Pulse 122 Resp 20 B/P (MAP) 137/103 (114) Pulse Ox 95 O2 Delivery Room Air Capillary Refill : Less Than 3 Seconds Height, Weight, BMI Height: 5'0" Weight: 409lbs. 0oz. 185.094288sn; 82.00 BMI Method:Stated General Appearance: No Apparent Distress, WD/WN, Obese (Morbidly) HEENT: PERRL/EOMI, Pharynx Normal Neck: Non Tender, Supple Respiratory: No Accessory Muscle Use; No Crackles; Wheezing (Few trace scattered wheezes) Cardiovascular: Irregularly Irregular, Tachycardia Gastrointestinal: Non Tender, Soft Extremity: Normal Range of Motion, Non Tender Neurologic/Psychiatric: Alert, Oriented x3 Skin: Normal Color, Warm/Dry Progress/Results/Core Measures Results/Orders Lab Results Laboratory Tests Test 03/21/21 20:22 03/21/21 20:43 Range/Units White Blood Count 8.9 4.3-11.0 10^3/uL Red Blood Count 4.43 3.80-5.11 10^6/uL Hemoglobin 13.1 11.5-16.0 g/dL Hematocrit 40 35-52 % Mean Corpuscular Volume 91 80-99 fL Mean Corpuscular Hemoglobin 30 25-34 pg Mean Corpuscular Hemoglobin Concent 33 32-36 g/dL Red Cell Distribution Width 14.6 H 10.0-14.5 % Platelet Count 210 130-400 10^3/uL Mean Platelet Volume 10.3 9.0-12.2 fL Immature Granulocyte % (Auto) 2 % Neutrophils (%) (Auto) 64 42-75 % Lymphocytes (%) (Auto) 24 12-44 % Monocytes (%) (Auto) 6 0-12 % Eosinophils (%) (Auto) 3 0-10 % Basophils (%) (Auto) 1 0-10 % Neutrophils # (Auto) 5.7 1.8-7.8 10^3/uL Lymphocytes # (Auto) 2.1 1.0-4.0 10^3/uL Monocytes # (Auto) 0.6 0.0-1.0 10^3/uL Eosinophils # (Auto) 0.3 0.0-0.3 10^3/uL Basophils # (Auto) 0.1 0.0-0.1 10^3/uL Immature Granulocyte # (Auto) 0.2 H 0.0-0.1 10^3/uL Prothrombin Time 15.0 H 12.2-14.7 SEC INR Comment 1.1 0.8-1.4 Activated Partial Thromboplast Time 28 24-35 SEC Sodium Level 136 135-145 MMOL/L Potassium Level 4.1 3.6-5.0 MMOL/L Chloride Level 100 98-107 MMOL/L Carbon Dioxide Level 25 21-32 MMOL/L Anion Gap 11 5-14 MMOL/L Blood Urea Nitrogen 19 H 7-18 MG/DL Creatinine 0.77 0.60-1.30 MG/DL Estimat Glomerular Filtration Rate 80 BUN/Creatinine Ratio 25 Glucose Level 208 H 70-105 MG/DL Calcium Level 8.9 8.5-10.1 MG/DL Corrected Calcium 9.3 8.5-10.1 MG/DL Magnesium Level 1.7 1.6-2.4 MG/DL Total Bilirubin 0.3 0.1-1.0 MG/DL Aspartate Amino Transf (AST/SGOT) 15 5-34 U/L Alanine Aminotransferase (ALT/SGPT) 12 0-55 U/L Alkaline Phosphatase 99 40-136 U/L Myoglobin 35.7 10.0-92.0 NG/ML Troponin I < 0.028 <0.028 NG/ML Total Protein 7.1 6.4-8.2 GM/DL Albumin 3.5 3.2-4.5 GM/DL B-Type Natriuretic Peptide 123.5 H <100.0 PG/ML My Orders Orders - CECE DORADO MD Lactated Ringers (Lr 1000 Ml Iv Solution (03/21/21 20:18) Cbc With Automated Diff (03/21/21 20:18) Magnesium (03/21/21 20:18) Chest 1 View, Ap/Pa Only (03/21/21:18) Ekg Tracing (03/21/21:18) Comprehensive Metabolic Panel (03/21/21:18) Myoglobin Serum (03/21/21 20:18) Protime With Inr (03/21/21:18) Partial Thromboplastin Time (03/21/21:18) O2 (03/21/21:18) Monitor-Rhythm Ecg Trace Only (03/21/21:18) Lipid Panel (03/22/21 06:00) Ed Iv/Invasive Line Start (03/21/21 20:18) Troponin I Alicja (03/21/21 20:18) Metoprolol Tartrate Injection (Lopressor (03/21/21 20:30) Bnp Alicja (03/21/21 20:40) Metoprolol Tartrate (Ir) Tab (Lopressor (03/21/21 21:45) Medications Given in ED Current Medications Medications Dose Ordered Sig/Carla Route Start Time Stop Time Status Last Admin Dose Admin Metoprolol Tartrate 5 mg ONCE ONCE IV 03/21/21 20:30 03/21/21 20:31 DC 03/21/21 20:26 5 MG Vital Signs/I&O 03/21/21 20:09 Temp 36.3 Pulse 122 Resp 20 B/P (MAP) 137/103 (114) Pulse Ox 95 O2 Delivery Room Air Blood Pressure Mean: 114 Progress Progress Note : Progress Note Seen and evaluated. IV by EMS, labs, chest x-ray and EKG ordered. LR 1 L bolus ordered. Metoprolol 5 mg IV. Patient is in atrial fibrillation with rate between 109 and 140s. We will try the metoprolol and fluids and see if she responds but she may need more advanced therapy. We will see how she responds and let that dictate therapy. Discussed aspirin with her which she states that she does not take because of the Xarelto and does not want to take that. We will hold and she is on her Xarelto anyway. Monitor patient. 2149: Heart rate now down to around 100 with blood pressure still 140s to 150s systolic. We will go ahead and give a dose of metoprolol immediate release 50 mg p.o. now. She will continue home medications at home. Her A. fib is rate controlled. After 4 days of chest pain, troponin still negative and BNP is not significantly elev ated. Chest x-ray does not show significant pulmonary edema or heart failure concerns. She has appointment with her restaurant inspector on 03/29/2021 in [place] and she will keep that appointment. I did discuss with her about following up with her primary care doctor this week which she will do. Discharged home with return precautions. Patient verbalized understanding of instructions and agreement with plan. Initial ECG Impression Date: Mar 21, 2021 Initial ECG Impression Time: 20:09 Initial ECG Rate: 143 Initial ECG Rhythm: A Fib/Flutter Initial ECG Impression: Atrial Fibrillation w/RVR Comment Atrial fibrillation with rapid ventricular response. Normal axis. No evidence of ST elevation ID. Change from previous of 02/26/2019 which was sinus tachycardia rate of 101. Interpreted by me. Diagnostic Imaging Diagonstic Imaging: Xray Plain Films/CT/US/NM/MRI: chest Comments [facility], [place] NAME: ISAMAR BOYLE I [facility] REC#: [id number] PT STATUS: REG ER : 1975 PHYSICIAN: CECE DORADO MD ADMIT DATE: 03/21/21/ER Signed Date of Exam:03/21/21 CHEST 1 VIEW, AP/PA ONLY EXAMINATION: Chest 1 view. HISTORY: Chest pain. COMPARISON: 02/26/2019. FINDINGS: The lung volumes are normal. No focal consolidation is seen. No large pleural effusion or pneumothorax is seen. The cardiomediastinal silhouette is enlarged with central pulmonary vascular congestion. No acute osseous abnormality is seen. IMPRESSION: Cardiomegaly with central pulmonary vascular congestion. No overt pulmonary edema. Dictated by: Dictated on workstation # [id number] Dict: 03/21/212038 Trans: 03/21/212047 [facility] [id number] Interpreted by: SELENA HENSON DO Electronically signed by: SELENA HENSON DO 03/21/212047 Departure Impression Primary Impression: Chest pain Qualified Codes: R07.9 - Chest pain, unspecified Additional Impression: Atrial fibrillation Qualified Codes: I48.91 - Unspecified atrial fibrillation Disposition: HOME, SELF-CARE Condition: Stable Departure-Patient Inst. Decision time for Depature: 21:52 Referrals: ZAINAB HESS MD (PCP/Family) Primary Care Physician Patient Instructions: Atrial Fibrillation (DC), Chest Pain (DC) Add. Discharge Instructions: All discharge instructions reviewed with patient and/or family. Voiced understanding. Your heart rate was uncontrolled that and improved now. Continue to take home medications as previously prescribed. Take your night medicines tonight as scheduled. It is important that you follow-up with your restaurant inspector on 03/29/2021 as scheduled. Follow-up with your primary care doctor here or someone in her clinic later this week for recheck and further evaluation. Return for worse pain, fever, vomiting, weakness, breathing problems or other concerns as needed. CECE DORADO MD Mar 21, 2021 20:27
[2021-03-21] MEDS ORDERED: meTOprolol 5 MG/5 ML (LOPRESSOR) VIAL IV ONE (20:30)
[2021-03-21 20:31] LABS: INR 1.1 (0.8-1.4)
[2021-03-21 20:33] LABS: ALBUMIN 3.5 GM/DL (3.2-4.5); POTASSIUM 4.1 MMOL/L (3.6-5.0)
[2021-03-21 20:34] LABS: CALCIUM 8.9 MG/DL (8.5-10.1)
[2021-03-21 20:35] LABS: TOTAL PROTEIN 7.1 GM/DL (6.4-8.2)
[2021-03-21 20:37] LABS: BILIRUBIN,TOTAL 0.3 MG/DL (0.1-1.0)
[2021-03-21 20:39] LABS: CREATININE SERUM 0.77 MG/DL (0.60-1.30)
[2021-03-21 20:42] LABS: MAGNESIUM 1.7 MG/DL (1.6-2.4)
--- NOTE | 2021-03-21 20:46 | Diagnostic Imaging Report ---
EXAMINATION: Chest 1 view. HISTORY: Chest pain. COMPARISON: 02/26/2019. FINDINGS: The lung volumes are normal. No focal consolidation is seen. No large pleural effusion or pneumothorax is seen. The cardiomediastinal silhouette is enlarged with central pulmonary vascular congestion. No acute osseous abnormality is seen. IMPRESSION: Cardiomegaly with central pulmonary vascular congestion. No overt pulmonary edema. Dictated by: Dictated on workstation # [id number]
[2021-03-21] MEDS ORDERED: meTOprolol TARTRATE 50 MG (LOPRESSOR) TAB PO ONE (21:45)
[2021-03-21 21:57] VITALS: BP 152/104
== END 2021-03-21 22:02 | disposition home or self-care (01) ==
LOC: EDUNIT# 20:09 → ER 20:10
DX: I48.91 Unspecified atrial fibrillation (principal); G47.30 Sleep apnea, unspecified; J44.9 Chronic obstructive pulmonary disease, unspecified; I10 Essential (primary) hypertension; E66.01 Morbid (severe) obesity due to excess calories; E78.00 Pure hypercholesterolemia, unspecified; K21.9 Gastro-esophageal reflux disease without esophagitis; E11.9 Type 2 diabetes mellitus without complications; G89.29 Other chronic pain; M54.9 Dorsalgia, unspecified; Z68.45 Body mass index [BMI] 70 or greater, adult; Z79.4 Long term (current) use of insulin; Z79.891 Long term (current) use of opiate analgesic; Z79.899 Other long term (current) drug therapy; Z79.82 Long term (current) use of aspirin
CPT/HCPCS: 36415; 71045; 80053; 83735; 83874; 83880; 84484; 85025; 85610; 85730; 93005; 93041

== ENCOUNTER 2021-04-10 12:11 | Inpatient (IN) | payer MEDICAID ==
[~2021-04-10] VITALS: Ht 154.9 cm; Wt 171.2 kg
--- NOTE | 2021-04-10 12:22 | ED Cardiac General ---
History of Present Illness General Chief Complaint: Cardiac/General Problems Stated Complaint: CP Nursing Triage Note: PT BROUGHT IN BY [facility] FROM HOME WITH COMPLAINT OF AFIB, CP, SOA. STATES WENT TO ALF ON 04/07 AND RELEASED TODAY. DID NOT HAVE CARDIAC MEDS DURING THAT TIME. Source: patient, EMS Exam Limitations: no limitations (DAVE MARIEE APRN) History of Present Illness Date Seen by Provider: Apr 10, 2021 Time Seen by Provider: 12:19 Initial Comments to ER by EMS from home with reports of chest pain and shortness of breath. She has a known history of atrial fibrillation as well as obesity hypoventilation syndrome. She is managed with Xarelto and metoprolol succinate 100 mg daily. She had this on April 06 but got arrested and did not have any thereafter and was just released from senior care today. Her heart rate is found to be in the 170s atrial fibrillation with a blood pressure of 150s over 100 Timing/Duration: changing over time Severity: moderate Location: central Prior CP/Workup: no prior chest pain NTG SL DISASTER RECOVERY ANALYST: No ASA po DISASTER RECOVERY ANALYST: No Associated Systoms: Shortness of Air (DAVE MARIEE APRN) Allergies and Home Medications Allergies Coded Allergies: No Known Drug Allergies (Unverified , 08/08/16) Patient Home Medication List Home Medication List Reviewed: Yes (DAVE MARIEE APRN) Albuterol Sulfate (Proair Hfa) 8.5 Gm Hfa.aer.ad, 2 PUFF IH Q4H PRN for SHORTNESS OF BREATH, (Reported) Entered as Reported by: RAFFI JONES on 09/05/15 1248 Amoxicillin/Potassium Clav (Augmentin 875-125 Tablet) 1 Each Tablet, 1 EACH PO BID Prescribed by: DAVE MARIEE on 02/26/19 1803 Aspirin/Acetaminophen/Caffeine (Excedrin Extra Strength Caplet) 1 Each Tablet, 2 TAB PO BID PRN for PAIN-MILD, (Reported) Entered as Reported by: ISAMAR MARTINEZ on 12/27/16 1538 Budesonide/Formoterol Fumarate (Symbicort 160-4.5 Mcg Inhaler) 10.2 Gm Hfa.aer.ad, 2 PUFF IH BID, (Reported) Entered as Reported by: RAFFI JONES on 09/05/15 1248 Cetirizine HCl (Cetirizine HCl) 10 Mg Tablet, 10 MG PO DAILY, (Reported) Entered as Reported by: ISAMAR MARTINEZ on 08/08/16 1454 Folic Acid/Mv,Fe,Other Min (One Daily For Women Tablet) 1 Each Tablet, 1 TAB PO DAILY, (Reported) Entered as Reported by: RAFFI JONES on 02/13/16 1508 Furosemide (Furosemide) 40 Mg Tablet, 40 MG PO DAILY PRN for SWELLING, (Reported) Entered as Reported by: ISAMAR MARTINEZ on 12/27/16 1538 Gemfibrozil (Gemfibrozil) 600 Mg Tablet, 600 MG PO BID, (Reported) Entered as Reported by: RAFFI JONES on 09/05/15 1248 Ibuprofen (Ibuprofen) 600 Mg Tablet, 1,200 MG PO BID PRN for PAIN-MILD, (Reported) Entered as Reported by: RAFFI JONES on 09/05/15 1248 Insulin Aspart (Novolog) 100 Unit/1 Ml Susp, 40 UNITS SQ AC, (Reported) Entered as Reported by: RAFFI JONES on 09/05/15 1248 Insulin Glargine,Hum.rec.anlog (Lantus) 100 Unit/1 Ml Vial, 52-53 UNITS SQ BID, (Reported) Entered as Reported by: RAFFI JONES on 09/05/15 1248 Ipratropium [place] (Ipratropium [place]) 0.2 Mg/1 Ml Solution, 2 VIAL IH TID PRN for SHORTNESS OF BREATH, (Reported) Entered as Reported by: RAFFI JONES on 09/05/15 1248 Metformin HCl (Metformin HCl) 1,000 Mg Tablet, 1,000 MG PO BID WITH MEALS, (Reported) Entered as Reported by: RAFFI JONES on 09/05/15 1248 Metolazone (Metolazone) 2.5 Mg Tablet, 2.5 MG PO DAILY Prescribed by: PITER ESPINOZA on 12/29/16 0853 Montelukast Sodium (Montelukast Sodium) 10 Mg Tablet, 10 MG PO DAILY, (Reported) Entered as Reported by: RAFFI JONES on 09/05/15 1248 Omeprazole (Omeprazole) 40 Mg Capsule.dr, 40 MG PO DAILY, (Reported) Entered as Reported by: RAFFI JONES on 09/05/15 1248 Pravastatin Sodium (Pravastatin Sodium) 40 Mg Tablet, 40 MG PO HS, (Reported) Entered as Reported by: RAFFI JONES on 09/05/15 1302 Pregabalin (Lyrica) 150 Mg Capsule, 300 MG PO HS, (Reported) Entered as Reported by: RAFFI OJNES on 09/05/15 1248 Pregabalin (Lyrica) 150 Mg Capsule, 150 MG PO 0800,1800, (Reported) Entered as Reported by: ISAMAR MARTINEZ on 12/27/16 1538 Ranitidine HCl (Ranitidine HCl) 150 Mg Tablet, 300 MG PO HS, (Reported) Entered as Reported by: RAFFI JONES on 09/05/15 1248 Sucralfate (Sucralfate) 1 Gm Tablet, 2 GM PO BID, (Reported) Entered as Reported by: JOHN ORTEGA on 08/06/16 1244 Tramadol HCl (Tramadol HCl) 50 Mg Tablet, 50 MG PO Q6H PRN for PAIN Prescribed by: CECE DORADO on 02/11/18 1321 Review of Systems Review of Systems Constitutional: see HPI; No chills, No fever EENTM: No Symptoms Reported Respiratory: See HPI, Shortness of Air Cardiovascular: See HPI, Chest Pain Gastrointestinal: No Symptoms Reported Genitourinary: No Symptoms Reported Musculoskeletal: no symptoms reported Skin: no symptoms reported Psychiatric/Neurological: No Symptoms Reported Endocrine: No Symptoms Reported Hematologic/Lymphatic: No Symptoms Reported (DAVE MARIEE APRN) Past Tlutbhy-Ogqtjn-Lyusmi Hx Immunizations Up To Date Tetanus Booster (TDap): Unknown PED Vaccines UTD: No First/Initial COVID19 Vaccinat: 09/01 Second COVID19 Vaccination Tesfaye: 10/02 (DAVE MARIEE APRN) Seasonal Allergies Seasonal Allergies: No (DAVE MARIEE APRN) Past Medical History Surgery/Hospitalization HX: HTN, AFIB, ASTHMA, GERD, IDDM Surgeries: Yes Adenoidectomy, Bladder Surgery, Tonsillectomy Respiratory: Yes Asthma, Sleep Apnea, COPD Currently Using CPAP: No (noncompliant) Currently Using BIPAP: Yes Cardiac: No Chronic Edema/Swelling, High Cholesterol, Hypertension Neurological: No Reproductive Disorders: No Female Reproductive Disorders: Denies Sexually Transmitted Disease: No HIV/AIDS: No Genitourinary: Yes (UTI) Gastrointestinal: No Gastroesophageal Reflux, Chronic Constipation Musculoskeletal: No Chronic Back Pain Endocrine: Yes Diabetes, Insulin dep HEENT: No Loss of Vision: Denies Hearing Impairment: Denies Cancer: No Psychosocial: Yes Anxiety, Personality Disorder, Depression Integumentary: Yes (Diabetic ulcers) Eczema Blood Disorders: No Adverse Reaction/Blood Tranf: No (DAVE MARIEE APRN) Family Medical History Cancer 19 FATHER, Onset:Unknown 19 MOTHER, Onset:Unknown Cancer of colon 19 FATHER, Onset:Unknown 19 MOTHER, Onset:Unknown Family history: Cardiovascular disease 19 FATHER, Onset:Unknown 19 MOTHER, Onset:Unknown Family history: Diabetes mellitus 19 FATHER, Onset:Unknown 19 MOTHER, Onset:Unknown Heart Disease, Seizures (DAVE MARIEE APRN) Physical Exam Vital Signs Vital Signs - First Documented 04/10/21 12:14 Pulse 176 Resp 20 B/P (MAP) 141/101 (114) Pulse Ox 93 O2 Delivery Room Air (NASREEN BILLS MD) Vital Signs Capillary Refill : Less Than 3 Seconds (DAVE MARIEE APRN) Height, Weight, BMI Height: 5'0" Weight: 409lbs. 0oz. 185.028601as; 72.00 BMI Method:Stated General Appearance: WD/WN, Anxious, Moderate Distress HEENT: PERRL/EOMI, TMs Normal Respiratory: No Accessory Muscle Use, No Respiratory Distress Cardiovascular: Irregularly Irregular, Tachycardia (Heart rate of 175 atrial fibrillation. Blood pressure 141/101. Respiratory rate 26 oxygen 97% room air.) Gastrointestinal: Normal Bowel Sounds, Non Tender, Soft Extremity: Normal Capillary Refill, Normal Inspection Neurologic/Psychiatric: Alert, Oriented x3 Skin: Normal Color, Warm/Dry (DAVE MARIEE APRN) Progress/Results/Core Measures Results/Orders Lab Results Laboratory Tests Test 04/10/21 12:19 04/10/21 12:48 Range/Units White Blood Count 10.9 4.3-11.0 10^3/uL Red Blood Count 4.58 3.80-5.11 10^6/uL Hemoglobin 13.6 11.5-16.0 g/dL Hematocrit 41 35-52 % Mean Corpuscular Volume 90 80-99 fL Mean Corpuscular Hemoglobin 30 25-34 pg Mean Corpuscular Hemoglobin Concent 33 32-36 g/dL Red Cell Distribution Width 15.2 H 10.0-14.5 % Platelet Count 203 130-400 10^3/uL Mean Platelet Volume 10.1 9.0-12.2 fL Immature Granulocyte % (Auto) 1 % Neutrophils (%) (Auto) 82 H 42-75 % Lymphocytes (%) (Auto) 11 L 12-44 % Monocytes (%) (Auto) 6 0-12 % Eosinophils (%) (Auto) 1 0-10 % Basophils (%) (Auto) 0 0-10 % Neutrophils # (Auto) 8.9 H 1.8-7.8 10^3/uL Lymphocytes # (Auto) 1.2 1.0-4.0 10^3/uL Monocytes # (Auto) 0.6 0.0-1.0 10^3/uL Eosinophils # (Auto) 0.1 0.0-0.3 10^3/uL Basophils # (Auto) 0.0 0.0-0.1 10^3/uL Immature Granulocyte # (Auto) 0.1 0.0-0.1 10^3/uL Prothrombin Time 14.3 12.2-14.7 SEC INR Comment 1.1 0.8-1.4 Activated Partial Thromboplast Time 28 24-35 SEC Sodium Level 132 L 135-145 MMOL/L Potassium Level 4.0 3.6-5.0 MMOL/L Chloride Level 99 98-107 MMOL/L Carbon Dioxide Level 23 21-32 MMOL/L Anion Gap 10 5-14 MMOL/L Blood Urea Nitrogen 10 7-18 MG/DL Creatinine 0.76 0.60-1.30 MG/DL Estimat Glomerular Filtration Rate 82 BUN/Creatinine Ratio 13 Glucose Level 299 H 70-105 MG/DL Calcium Level 9.0 8.5-10.1 MG/DL Corrected Calcium 9.3 8.5-10.1 MG/DL Magnesium Level 1.7 1.6-2.4 MG/DL Total Bilirubin 0.9 0.1-1.0 MG/DL Aspartate Amino Transf (AST/SGOT) 20 5-34 U/L Alanine Aminotransferase (ALT/SGPT) 13 0-55 U/L Alkaline Phosphatase 108 40-136 U/L Myoglobin 60.5 10.0-92.0 NG/ML Troponin I < 0.028 <0.028 NG/ML B-Type Natriuretic Peptide 363.5 H <100.0 PG/ML Total Protein 7.4 6.4-8.2 GM/DL Albumin 3.6 3.2-4.5 GM/DL Serum Test, Qualitative NEGATIVE NEGATIVE Blood Gas Puncture Site LT BRACHIAL Blood Gas Patient Temperature 36.4 Arterial Blood pH 7.42 7.37-7.43 Arterial Blood Partial Pressure CO2 39 35-45 MMHG Arterial Blood Partial Pressure O2 75 L 79-93 MMHG Arterial Blood HCO3 25 23-27 MMOL/L Arterial Blood Total CO2 26.1 21.0-31.0 MMOL/L Arterial Blood Oxygen Saturation 96 94-100 % Arterial Blood Base Excess 0.9 -2.5-2.5 MMOL/L Mayank Test YES-POS Blood Gas Ventilator Setting NO Blood Gas Inspired Oxygen ROOM AIR (NASREEN BILLS MD) Medications Given in ED Current Medications Medications Dose Ordered Sig/Carla Route Start Time Stop Time Status Last Admin Dose Admin Acetaminophen 650 mg ONCE ONCE PO 04/10/21 13:15 04/10/21 13:16 DC 04/10/21 13:13 650 MG Aspirin 324 mg ONCE ONCE PO 04/10/21 12:30 04/10/21 12:31 DC 04/10/21 12:23 324 MG Diltiazem HCl 15 mg ONCE ONCE IVP 04/10/21 12:30 04/10/21 12:31 DC 04/10/21 12:23 15 MG Metoprolol Tartrate 5 mg ONCE ONCE IV 04/10/21 13:30 04/10/21 13:31 DC 04/10/21 13:46 5 MG Ondansetron HCl 4 mg ONCE ONCE IVP 04/10/21 12:30 04/10/21 12:31 DC 04/10/21 12:24 4 MG Rivaroxaban 20 mg ONCE ONCE PO 04/10/21 12:30 04/10/21 12:31 DC 04/10/21 12:42 20 MG (NASREEN BILLS MD) Vital Signs/I&O 04/10/21 12:14 Pulse 176 Resp 20 B/P (MAP) 141/101 (114) Pulse Ox 93 O2 Delivery Room Air (NASREEN BILLS MD) Blood Pressure Mean: 114 Departure Communication (Admissions) Family Conversation NAME: ISAMAR BOYLE Miranda MED REC#: [id number] PT STATUS: REG ER : 1975 PHYSICIAN: DAVE MARIEE APRN ADMIT DATE: 04/10/21/ER Draft Date of Exam:04/10/21 CHEST 1 VIEW, AP/PA ONLY Portable erect AP chest at 12:30H. INDICATION: Chest pain The cardiomegaly noted on the prior exam of 03/21/2020 was again evident and not significantly changed. The central pulmonary vascularity does not seem to be engorged and at this time there is no evidence for overt failure. The lungs seem generally clear although both lungs are partially obscured by the overlying breast/chest tissue. The mediastinum is not widened. The osseous structures are intact. IMPRESSION: 1. There is cardiomegaly and perhaps mild pulmonary congestion. When compared to the prior study there does not appear to have been any significant change. 2. If clinical concern regarding an underlying abnormality persists, then a follow-up PA and lateral chest should be obtained for further study. Dictated on workstation # [id number] Dict: 04/10/21 1240 Trans: 04/10/21 1247 [facility] [id number] Interpreted by: JACKY TORRES MD Electronically signed by: [id number] with Dr. Alcala she will admit, we will consult Dr. Rebolledo. Currently Cardizem drip at 10 mg an hour +5 mg of Lopressor IV push gives a heart rate of 125 still atrial fibrillation, blood pressure 145/95. (DAVE MARIEE APRN) Impression Primary Impression: Atrial fibrillation with rapid ventricular response Additional Impression: Obesity hypoventilation syndrome Disposition: ADMITTED INPATIENT Condition: Stable Admissions Decision to Admit Reason: Admit from ER (General) Decision to Admit/Date: Apr 10, 2021 Time/Decision to Admit Time: 14:02 (DAVE MARIEE APRN) Departure-Patient Inst. Referrals: ZAINAB HESS MD (PCP/Family) Primary Care Physician ATTENDING PHYSICIAN NOTE: I was physically present as attending physician in the emergency department during the care of this patient, but I was not directly involved in the decision making or delivery of care for this patient. (NASREEN BILLS MD) DAVE MARIEE APRN Apr 10, 2021 12:22 NASREEN BILLS MD Apr 10, 2021 18:39
[2021-04-10 12:25] LABS: BASOPHILS % (AUTO) 0 % (0-10); EOSINOPHILS # (AUTO) 0.1 10^3/uL (0.0-0.3); EOSINOPHILS % (AUTO) 1 % (0-10); HEMATOCRIT 41 % (35-52); HEMOGLOBIN 13.6 g/dL (11.5-16.0); LYMPHOCYTES # (AUTO) 1.2 10^3/uL (1.0-4.0); LYMPHOCYTES % (AUTO) 11 % (12-44); MEAN CORPUSCULAR HEMOGLOBIN 30 pg (25-34); MEAN CORPUSCULAR HGB CONC 33 g/dL (32-36); MEAN CORPUSCULAR VOLUME 90 fL (80-99); MEAN PLATELET VOLUME 10.1 fL (9.0-12.2); MONOCYTES # (AUTO) 0.6 10^3/uL (0.0-1.0); MONOCYTES % (AUTO) 6 % (0-12); NEUTROPHILS # (AUTO) 8.9 10^3/uL (1.8-7.8); NEUTROPHILS % (AUTO) 82 % (42-75); PLATELET COUNT 203 10^3/uL (130-400); WHITE BLOOD COUNT 10.9 10^3/uL (4.3-11.0)
[2021-04-10] MEDS: dilTIAZem DRIP PRE-MIX 125 ML IV SCH ×3 (12:29→20:06)
[2021-04-10] MEDS ORDERED: ASPIRIN 81 MG CHEW (CHILDREN'S ASA) PO ONE (12:30)
[2021-04-10] MEDS ORDERED: ONDANSETRON 4 MG/2 ML (SDV) Z0FRAN IVP ONE (12:30)
[2021-04-10] MEDS ORDERED: RIVAROXABAN 20 MG TABLET (XARELTO) PO ONE (12:30)
--- NOTE | 2021-04-10 12:47 | Diagnostic Imaging Report ---
Portable erect AP chest at 12:30H. INDICATION: Chest pain The cardiomegaly noted on the prior exam of 03/21/2020 was again evident and not significantly changed. The central pulmonary vascularity does not seem to be engorged and at this time there is no evidence for overt failure. The lungs seem generally clear although both lungs are partially obscured by the overlying breast/chest tissue. The mediastinum is not widened. The osseous structures are intact. IMPRESSION: 1. There is cardiomegaly and perhaps mild pulmonary congestion. When compared to the prior study there does not appear to have been any significant change. 2. If clinical concern regarding an underlying abnormality persists, then a follow-up PA and lateral chest should be obtained for further study. Dictated by: Dictated on workstation # [id number]
[2021-04-10 12:54] LABS: ABG BASE EXCESS 0.9 MMOL/L (-2.5-2.5); ABG OXYGEN SATURATION 96 % (94-100); ABG PCO2 39 MMHG (35-45); ABG PH 7.42 (7.37-7.43); ABG PO2 75 MMHG (79-93); ABG TCO2 26.1 MMOL/L (21.0-31.0)
[2021-04-10 12:54] LABS: INR 1.1 (0.8-1.4); PROTHROMBIN TIME PATIENT 14.3 SEC (12.2-14.7)
[2021-04-10 12:57] LABS: ALBUMIN 3.6 GM/DL (3.2-4.5)
[2021-04-10 12:59] LABS: TOTAL PROTEIN 7.4 GM/DL (6.4-8.2)
[2021-04-10 13:01] LABS: ALLENS TEST YES-POS
[2021-04-10 13:01] LABS: BILIRUBIN,TOTAL 0.9 MG/DL (0.1-1.0)
[2021-04-10 13:02] LABS: INSPIRED O2 ROOM AIR; PATIENT TEMP 36.4; VENTILATOR NO
[2021-04-10 13:03] LABS: CREATININE SERUM 0.76 MG/DL (0.60-1.30)
[2021-04-10 13:06] LABS: MAGNESIUM 1.7 MG/DL (1.6-2.4)
[2021-04-10] MEDS ORDERED: ACETAMINOPHEN 325 MG TABLET PO ONE (13:15)
[2021-04-10] MEDS ORDERED: meTOprolol 5 MG/5 ML (LOPRESSOR) VIAL IV ONE (13:30)
[2021-04-10] MEDS ORDERED: diphenhydrAMINE 25 MG TAB (BENADRYL) PO PRN (14:30)
[2021-04-10] MEDS ORDERED: DOCUSATE SODIUM 100 MG (COLACE) CAP PO PRN (14:30)
[2021-04-10] MEDS ORDERED: LOPERAMIDE 2 MG (IMODIUM) TABLET PO PRN (14:30)
[2021-04-10] MEDS ORDERED: ONDANSETRON 4 MG/2 ML (SDV) Z0FRAN IVP PRN (14:30)
[2021-04-10] MEDS ORDERED: ONDANSETRON 4 MG (ZOFRAN) ORAL DISSOLVE TAB PO PRN (14:30)
[2021-04-10] MEDS ORDERED: CALCIUM CARBONATE 500 MG (TUMS) TAB.CHEW PO PRN (14:30)
[2021-04-10] MEDS ORDERED: morphine INJ 10 MG/ML 1ML (SYR OR VIAL) IVP PRN (14:30)
[2021-04-10 15:03] VITALS: BP 124/81
[2021-04-10] MEDS ORDERED: ACETAMINOPHEN 325 MG TABLET PO PRN (15:15)
[2021-04-10] MEDS ORDERED: FLU QUADRIvalent (3YOA+) 60 mcg/0.5 ml 2021-22(AFLURIA) IM ONE (16:15)
[2021-04-10] MEDS: RIVAROXABAN 20 MG TABLET (XARELTO) PO SCH (16:41)
[2021-04-10] MEDS ORDERED: RT-ALBUTEROL SULF 2.5 MG/3 ML PRE-MIX VIAL INH PRN (17:15)
[2021-04-10] MEDS: guaiFENesin/CODEINE (ROBITUSSIN AC) 10ML UDC PO PRN (20:15)
[2021-04-10] MEDS: ALPRAZolam 0.25 MG (XANAX) TAB PO PRN (20:15)
[2021-04-10] MEDS: polyethylene glycoL POWDER 17 GM (MIRALAX) PACK PO SCH (20:32)
[2021-04-10] MEDS: SENNA W/DOCUSATE (SENOKOT S) TABLET PO SCH (20:32)
[2021-04-10] MEDS: RT-ALBUTEROL/IPRATROPIUM 3 ML (DUONEB) VIAL INH SCH (21:06)
[2021-04-10] MEDS: MELATONIN 3 MG TABLET PO PRN (23:37)
[2021-04-10] MEDS: HYDROcodone/APAP 5 MG/325 MG (LORTAB) TAB PO PRN (23:37)
[2021-04-11] MEDS: dilTIAZem DRIP PRE-MIX 125 ML IV SCH ×2 (02:47→10:12)
[2021-04-11] MEDS: guaiFENesin/CODEINE (ROBITUSSIN AC) 10ML UDC PO PRN (03:29)
[2021-04-11 04:41] LABS: BASOPHILS % (AUTO) 0 % (0-10); EOSINOPHILS # (AUTO) 0.2 10^3/uL (0.0-0.3); EOSINOPHILS % (AUTO) 2 % (0-10); HEMATOCRIT 37 % (35-52); HEMOGLOBIN 11.6 g/dL (11.5-16.0); LYMPHOCYTES # (AUTO) 1.4 10^3/uL (1.0-4.0); LYMPHOCYTES % (AUTO) 16 % (12-44); MEAN CORPUSCULAR HEMOGLOBIN 29 pg (25-34); MEAN CORPUSCULAR HGB CONC 32 g/dL (32-36); MEAN CORPUSCULAR VOLUME 91 fL (80-99); MEAN PLATELET VOLUME 10.3 fL (9.0-12.2); MONOCYTES # (AUTO) 0.7 10^3/uL (0.0-1.0); MONOCYTES % (AUTO) 8 % (0-12); NEUTROPHILS # (AUTO) 6.6 10^3/uL (1.8-7.8); NEUTROPHILS % (AUTO) 74 % (42-75); PLATELET COUNT 173 10^3/uL (130-400)
[2021-04-11 04:49] LABS: ALBUMIN 3.1 GM/DL (3.2-4.5); POTASSIUM 3.6 MMOL/L (3.6-5.0)
[2021-04-11 04:50] LABS: CALCIUM 8.5 MG/DL (8.5-10.1)
[2021-04-11 04:52] LABS: TOTAL PROTEIN 6.4 GM/DL (6.4-8.2)
[2021-04-11 04:54] LABS: BILIRUBIN,TOTAL 0.8 MG/DL (0.1-1.0)
[2021-04-11 04:55] LABS: CREATININE SERUM 0.8 MG/DL (0.60-1.30)
[2021-04-11] MEDS: MAGNESIUM 1 GM/100 ML IVPB 100 ML IV SCH (05:32)
[2021-04-11] MEDS: KCL 20 MEQ TAB (K-DUR) PO SCH (05:32)
[2021-04-11] MEDS: POTASSIUM CL 10MEQ/50ML IVPB 50 ML IV SCH (05:32)
[2021-04-11] MEDS: RT-ALBUTEROL/IPRATROPIUM 3 ML (DUONEB) VIAL INH SCH ×2 (07:36→21:20)
[2021-04-11] MEDS: SENNA W/DOCUSATE (SENOKOT S) TABLET PO SCH ×2 (08:51→20:21)
[2021-04-11] MEDS: polyethylene glycoL POWDER 17 GM (MIRALAX) PACK PO SCH ×2 (08:51→20:21)
[2021-04-11] MEDS: ALPRAZolam 0.25 MG (XANAX) TAB PO PRN (08:52)
[2021-04-11] MEDS ORDERED: KCL 20 MEQ TAB (K-DUR) PO ONE (09:00)
[2021-04-11] MEDS ORDERED: TIZA-186 PO (10:23)
[2021-04-11] MEDS ORDERED: RT-ALBUINH INH (10:23)
[2021-04-11] MEDS ORDERED: MELO7.5T46 PO (10:23)
[2021-04-11] MEDS ORDERED: DULO60CA59 PO (10:23)
[2021-04-11] MEDS ORDERED: NYST60PO TOP (10:23)
[2021-04-11] MEDS ORDERED: RIVA20TA PO (10:23)
[2021-04-11] MEDS ORDERED: ESOM20CA37 PO (10:23)
[2021-04-11] MEDS ORDERED: METO50TA15 PO (10:23)
[2021-04-11] MEDS ORDERED: LISI10TA25 PO (10:23)
[2021-04-11] MEDS ORDERED: FURO20TA4 PO (10:24)
[2021-04-11] MEDS ORDERED: meTOprolol SUCCINATE 100 MG (TOPROL XL) TAB PO NR (10:27)
--- NOTE | 2021-04-11 10:31 | Consultation-Cardiology ---
HPI-Cardiology Cardiology Consultation: Date of Consultation 04/11/21 Date of Admission 04/10/2021 Attending Physician Christelle Alcala DO Admitting Physician Victorina Cano MD Consulting Physician JESSIKA PHAN JR, MD HPI: Time Seen by a Provider: 10:26 Chief Complaint: Reason for consultation: Atrial fibrillation. I saw Isamar in the intensive care unit at [facility] in [place], [place] this morning. She has a history of paroxysmal atrial fibrillation and follows with a air route controller in [place], [place]. She was recently incarcerated and at that time, had stopped her medication. She was just released yesterday and then started developing palpitations with the sensation of a rapid heartbeat associ ated with severe lightheadedness, dyspnea and chest tightness. She came to the emergency room for further evaluation. She was found to be in atrial fibrillation with a rapid ventricular rate. She was placed on intravenous diltiazem and admitted to the hospital for further evaluation. Because of the atrial fibrillation, a cardiology consultation was requested. This morning she still has some palpitations but the lightheadedness, chest discomfort and dyspnea have improved, although not completely resolved. She denies syncope. She denies paroxysmal nocturnal dyspnea or orthopnea. She has chronic, bilateral lower extremity edema. She has tried to lose weight in the past but admits that she often eats ice cream cake and believes this is how she gained so much weight. Certain portions of this document may have been dictated utilizing voice recognition technology. Inherent to this technology, typographical and grammatical errors may exist. As much as I am diligent to identify and correct these mistakes, some errors may remain in the document. Review of Systems-Cardiology Review of Systems Other comments Review of 10 organ systems is as per the history of present illness, otherwise negative. JZM-Lpvhwh-Amniaz Hx Patient Social History 2nd Hand Smoke Exposure: No Have you traveled recently?: No Alcohol Use?: No Pt feels they are or have been: Yes Immunizations Up To Date Tetanus Booster (TDap): Unknown Date of Pneumonia Vaccine: Jan 13, 2012 Date of Influenza Vaccine: Feb 26, 2012 Past Medical History PMH As described under Assessment. Family Medical History Family History: Cancer 19 FATHER, Onset:Unknown 19 MOTHER, Onset:Unknown Cancer of colon 19 FATHER, Onset:Unknown 19 MOTHER, Onset:Unknown Family history: Cardiovascular disease 19 FATHER, Onset:Unknown 19 MOTHER, Onset:Unknown Family history: Diabetes mellitus 19 FATHER, Onset:Unknown 19 MOTHER, Onset:Unknown Allergies and Home Medications Allergies Coded Allergies: No Known Drug Allergies (Unverified , 08/08/16) Patient Home Medication List Home Medication List Reviewed: Yes Albuterol Sulfate (Proventil Hfa) 6.7 Gm Hfa.aer.ad, 2 PUFF INH Q4H PRN for SHORTNESS OF BREATH, (Reported) Entered as Reported by: SPENCER TAYLOR on 04/11/21 102 Last Action: Reviewed Duloxetine HCl (Duloxetine HCl) 60 Mg Capsule.dr, 120 MG PO HS, (Reported) Entered as Reported by: SPENCER TAYLOR on 04/11/21 102 Last Action: Reviewed Esomeprazole Magnesium (Esomeprazole Magnesium) 20 Mg Capsule.dr, 20 MG PO HS, (Reported) Entered as Reported by: SPENCER TAYLOR on 04/11/21 102 Last Action: Reviewed Furosemide (Furosemide) 20 Mg Tablet, 20 MG PO BID, (Reported) Entered as Reported by: SPENCER TAYLOR on 04/11/21 1024 Last Action: Reviewed Lisinopril (Lisinopril) 10 Mg Tablet, 10 MG PO HS, (Reported) Entered as Reported by: SPENCER TAYLOR on 04/11/21 102 Last Action: Reviewed Meloxicam (Meloxicam) 7.5 Mg Tablet, 7.5 MG PO HS, (Reported) Entered as Reported by: SPENCER TAYLOR on 04/11/21 102 Last Action: Reviewed Metoprolol Tartrate (Metoprolol Tartrate) 50 Mg Tablet, 100 MG PO HS, (Reported) Entered as Reported by: SPENCER TAYLOR on 04/11/21 102 Last Action: Reviewed Montelukast Sodium (Montelukast Sodium) 10 Mg Tablet, 10 MG PO HS, (Reported) Entered as Reported by: RAFFI JONES on 09/05/15 1248 Last Action: Reviewed Nystatin (Nystop) 60 Gm Powder, 1 APPLIC TOP BID PRN for RESTLESSNESS, (Reported) Entered as Reported by: SPENCER TAYLOR on 04/11/21 102 Last Action: Reviewed Rivaroxaban (Xarelto) 20 Mg Tablet, 20 MG PO HS, (Reported) Entered as Reported by: SPENCER TAYLOR on 04/11/21 1023 Last Action: Reviewed Tizanidine HCl (Tizanidine HCl) 4 Mg Tablet, 4 MG PO BID PRN for MUSCLE SPASMS, (Reported) Entered as Reported by: SPENCER TAYLOR on 04/11/21 1023 Last Action: Reviewed Discontinued Medications Albuterol Sulfate (Proair Hfa) 8.5 Gm Hfa.aer.ad, 2 PUFF IH Q4H PRN for SHORTNESS OF BREATH, (Reported) Discontinued Reason: Duplicate Order Entered as Reported by: RAFFI JONES on 09/05/15 124 Last Action: Discontinued Amoxicillin/Potassium Clav (Augmentin 875-125 Tablet) 1 Each Tablet, 1 EACH PO BID Discontinued Reason: Duplicate Order Prescribed by: DAVE MARIEE on 02/26/19 1801 Last Action: Discontinued Aspirin/Acetaminophen/Caffeine (Excedrin Extra Strength Caplet) 1 Each Tablet, 2 TAB PO BID PRN for PAIN-MILD, (Reported) Discontinued Reason: Duplicate Order Entered as Reported by: ISAMAR MARTINEZ on 12/27/161537 Last Action: Discontinued Budesonide/Formoterol Fumarate (Symbicort 160-4.5 Mcg Inhaler) 10.2 Gm Hfa.aer.ad, 2 PUFF IH BID, (Reported) Discontinued Reason: Duplicate Order Entered as Reported by: RAFFI JONES on 09/05/15 1248 Last Action: Discontinued Cetirizine HCl (Cetirizine HCl) 10 Mg Tablet, 10 MG PO DAILY, (Reported) Discontinued Reason: Duplicate Order Entered as Reported by: ISAMAR MARTINEZ on 08/08/16 9996 Last Action: Discontinued Folic Acid/Mv,Fe,Other Min (One Daily For Women Tablet) 1 Each Tablet, 1 TAB PO DAILY, (Reported) Discontinued Reason: Duplicate Order Entered as Reported by: RAFFI JONES on 02/13/16 0198 Last Action: Discontinued Furosemide (Furosemide) 40 Mg Tablet, 40 MG PO DAILY PRN for SWELLING, (Reported) Discontinued Reason: Duplicate Order Entered as Reported by: ISAMAR MARTINEZ on 12/27/16 1538 Last Action: Discontinued Gemfibrozil (Gemfibrozil) 600 Mg Tablet, 600 MG PO BID, (Reported) Discontinued Reason: Duplicate Order Entered as Reported by: RAFFI JONES on 09/05/151247 Last Action: Discontinued Ibuprofen (Ibuprofen) 600 Mg Tablet, 1,200 MG PO BID PRN for PAIN-MILD, (Repo rted) Discontinued Reason: Duplicate Order Entered as Reported by: RAFFI JONES on 09/05/151247 Last Action: Discontinued Insulin Aspart (Novolog) 100 Unit/1 Ml Susp, 40 UNITS SQ AC, (Reported) Discontinued Reason: Duplicate Order Entered as Reported by: RAFFI JONES on 09/05/151247 Last Action: Discontinued Insulin Glargine,Hum.rec.anlog (Lantus) 100 Unit/1 Ml Vial, 52-53 UNITS SQ BID, (Reported) Discontinued Reason: Duplicate Order Entered as Reported by: RAFFI JONES on 09/05/151247 Last Action: Discontinued Ipratropium [place] (Ipratropium [place]) 0.2 Mg/1 Ml Solution, 2 VIAL IH TID PRN for SHORTNESS OF BREATH, (Reported) Discontinued Reason: Duplicate Order Entered as Reported by: RAFFI JONES on 09/05/151247 Last Action: Discontinued Metformin HCl (Metformin HCl) 1,000 Mg Tablet, 1,000 MG PO BID WITH MEALS, (Reported) Discontinued Reason: Duplicate Order Entered as Reported by: RAFFI JONES on 09/05/151247 Last Action: Discontinued Metolazone (Metolazone) 2.5 Mg Tablet, 2.5 MG PO DAILY Discontinued Reason: Duplicate Order Prescribed by: PITER ESPINOZA on 12/29/16 0853 Last Action: Discontinued Omeprazole (Omeprazole) 40 Mg Capsule.dr, 40 MG PO DAILY, (Reported) Discontinued Reason: Duplicate Order Entered as Reported by: RAFFI JONES on 09/05/151247 Last Action: Discontinued Pravastatin Sodium (Pravastatin Sodium) 40 Mg Tablet, 40 MG PO HS, (Reported) Discontinued Reason: Duplicate Order Entered as Reported by: RAFFI JONES on 09/05/15 1302 Last Action: Discontinued Pregabalin (Lyrica) 150 Mg Capsule, 300 MG PO HS, (Reported) Discontinued Reason: Duplicate Order Entered as Reported by: RAFFI JONES on 09/05/151247 Last Action: Discontinued Pregabalin (Lyrica) 150 Mg Capsule, 150 MG PO 0800,1800, (Reported) Discontinued Reason: Duplicate Order Entered as Reported by: ISAMAR MARTINEZ on 12/27/16 1538 Last Action: Discontinued Ranitidine HCl (Ranitidine HCl) 150 Mg Tablet, 300 MG PO HS, (Reported) Discontinued Reason: Duplicate Order Entered as Reported by: RAFFI JONES on 09/05/15 1248 Last Action: Discontinued Sucralfate (Sucralfate) 1 Gm Tablet, 2 GM PO BID, (Reported) Discontinued Reason: Duplicate Order Entered as Reported by: JOHN ORTEGA on 08/06/16 1244 Last Action: Discontinued Tramadol HCl (Tramadol HCl) 50 Mg Tablet, 50 MG PO Q6H PRN for PAIN Discontinued Reason: Duplicate Order Prescribed by: CECE DORADO on 02/11/18 1321 Last Action: Discontinued Exam Vital Signs Vital Signs Date Time Temp Pulse Resp B/P (MAP) Pulse Ox O2 Delivery O2 Flow Rate FiO2 04/11/21 12:11 96 Nasal Cannula 2.00 04/11/21 12:00 36.1 04/11/21 10:00 90 25 136/87 Physical Exam General: Alert. No acute distress. Well nourished and appears stated age. She is morbidly obese. Eye: Extraocular movements are intact. Conjunctivae are clear. There are no xanthelasma. HENT: Normocephalic. Atraumatic. Carotid pulsations 2/2 without bruits. Neck: Jugular venous pressure does not appear elevated. No thyromegaly appreciated. Respiratory: Lungs are clear to auscultation. Respirations are non-labored. Breath sounds are equal. Symmetrical chest wall expansion. Cardiovascular: Normal rate. Irregular rhythm. Distant S1/S2. No murmur. No gallop. Point of maximal impulse is not appear displaced. Good pulses equal in all extremities. 3+ bilateral pretibial edema without venous stasis changes. Gastrointestinal: Soft. Normal bowel sounds. Skin: Skin turgor is normal. There is no pallor. Musculoskeletal: No kyphosis or scoliosis appreciated. Neurologic: Alert and oriented to person, place, time. Cranial nerves 3-12 appear grossly intact. The patient has good motor tone strength in the upper and lower extremities bilaterally. Psychiatric: Cooperative. Appropriate mood & affect. Labs Laboratory Tests Test 04/10/21 12:48 04/10/21 14:14 04/11/21 04:25 Range/Units Blood Gas Puncture Site LT BRACHIAL Blood Gas Patient Temperature 36.4 Arterial Blood pH 7.42 7.37-7.43 Arterial Blood Partial Pressure CO2 39 35-45 MMHG Arterial Blood Partial Pressure O2 75 L 79-93 MMHG Arterial Blood HCO3 25 23-27 MMOL/L Arterial Blood Total CO2 26.1 21.0-31.0 MMOL/L Arterial Blood Oxygen Saturation 96 94-100 % Arterial Blood Base Excess 0.9 -2.5-2.5 MMOL/L Mayank Test YES-POS Blood Gas Ventilator Setting NO Blood Gas Inspired Oxygen ROOM AIR Influenza Type A (RT-PCR) Not Detected Not Detecte Influenza Type B (RT-PCR) Not Detected Not Detecte SARS-CoV-2 RNA (RT-PCR) Not Detected Not Detecte White Blood Count 9.0 4.3-11.0 10^3/uL Red Blood Count 4.01 3.80-5.11 10^6/uL Hemoglobin 11.6 11.5-16.0 g/dL Hematocrit 37 35-52 % Mean Corpuscular Volume 91 80-99 fL Mean Corpuscular Hemoglobin 29 25-34 pg Mean Corpuscular Hemoglobin Concent 32 32-36 g/dL Red Cell Distribution Width 15.7 H 10.0-14.5 % Platelet Count 173 130-400 10^3/uL Mean Platelet Volume 10.3 9.0-12.2 fL Immature Granulocyte % (Auto) 1 % Neutrophils (%) (Auto) 74 42-75 % Lymphocytes (%) (Auto) 16 12-44 % Monocytes (%) (Auto) 8 0-12 % Eosinophils (%) (Auto) 2 0-10 % Basophils (%) (Auto) 0 0-10 % Neutrophils # (Auto) 6.6 1.8-7.8 10^3/uL Lymphocytes # (Auto) 1.4 1.0-4.0 10^3/uL Monocytes # (Auto) 0.7 0.0-1.0 10^3/uL Eosinophils # (Auto) 0.2 0.0-0.3 10^3/uL Basophils # (Auto) 0.0 0.0-0.1 10^3/uL Immature Granulocyte # (Auto) 0.1 0.0-0.1 10^3/uL Sodium Level 136 135-145 MMOL/L Potassium Level 3.6 3.6-5.0 MMOL/L Chloride Level 100 98-107 MMOL/L Carbon Dioxide Level 25 21-32 MMOL/L Anion Gap 11 5-14 MMOL/L Blood Urea Nitrogen 12 7-18 MG/DL Creatinine 0.80 0.60-1.30 MG/DL Estimat Glomerular Filtration Rate 77 BUN/Creatinine Ratio 15 Glucose Level 227 H 70-105 MG/DL Calcium Level 8.5 8.5-10.1 MG/DL Corrected Calcium 9.2 8.5-10.1 MG/DL Total Bilirubin 0.8 0.1-1.0 MG/DL Aspartate Amino Transf (AST/SGOT) 15 5-34 U/L Alanine Aminotransferase (ALT/SGPT) 11 0-55 U/L Alkaline Phosphatase 87 40-136 U/L Total Protein 6.4 6.4-8.2 GM/DL Albumin 3.1 L 3.2-4.5 GM/DL Triglycerides Level 139 <150 MG/DL Cholesterol Level 158 < 200 MG/DL LDL Cholesterol Direct 110 1-129 MG/DL VLDL Cholesterol 28 5-40 MG/DL HDL Cholesterol 37 L 40-60 MG/DL Radiology Preliminary review of echocardiogram obtained earlier today shows a technically difficult study but there appears to be mild left ventricular systolic dysfunction with an estimated ejection fraction of 45-50%. Full report to follow. ECG Impression ECG Comment Electrocardiogram from 04/10 shows atrial fibrillation with a rapid ventricular rate of 151 bpm with diffusely low voltages and possible old anterior myocardial infarction. Diagnosis/Problems Diagnosis/Problems (1) Paroxysmal atrial fibrillation Assessment & Plan: It is not entirely clear to me whether she has paroxysmal atrial fibrillation or persistent atrial fibrillation. Nonetheless, she remains in atrial fibrillation. She missed some of her doses of anticoagulation while she was incarcerated. She has been taking metoprolol tartrate once daily. This may not be effective at controlling her heart rate since this is a twice daily formulation. I will change her metoprolol over to metoprolol succinate. Her anticoagulation has been resumed. If we can get her heart rates under control, she can likely be discharged home. Once she is discharged, she can follow-up with her air route controller in [place]. (2) Cardiomyopathy Assessment & Plan: Her echocardiogram from today shows mild left ventricular systolic dysfunction. I have changed her metoprolol tartrate over to metoprolol succinate which has data on using and cardiomyopathy. I have also resumed her lisinopril. This will need to be followed by her regular air route controller after discharge. As above, her regular air route controller is in [place]. (3) Abnormal electrocardiogram Assessment & Plan: Her electrocardiogram shows a possible old anterior myocardial infarction. I suspect this is due to lead placement. Her troponin level was undetectable. Given her morbid obesity and body shape, it would be very difficult to perform an ischemic evaluation on this patient either by nuclear stress testing or cardiac catheterization. (4) Primary hypertension Assessment & Plan: As above, I have resumed her lisinopril and adjusted her metoprolol succinate. (5) Morbid obesity Status: Acute Assessment & Plan: She needs to lose weight or there will be very little chance of success in mandaen of sinus rhythm. She listed off all of the foods and beverages she drinks and reports that she tries to limit her caloric intake but then reported she has been eating lots of ice cream cake. JESSIKA PHAN JR, MD Apr 11, 2021 10:31
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
[2021-04-11] MEDS: RIVAROXABAN 20 MG TABLET (XARELTO) PO SCH (16:10)
[2021-04-11] MEDS: HYDROcodone/APAP 5 MG/325 MG (LORTAB) TAB PO PRN ×2 (16:10→21:34)
[2021-04-11] MEDS: lisINopril 10 MG (PRINIVIL) TABLET PO SCH (20:21)
[2021-04-11] MEDS: meTOprolol SUCCINATE 100 MG (TOPROL XL) TAB PO SCH (20:21)
[2021-04-11] MEDS ORDERED: RT-ALBUTEROL SULF 2.5 MG/3 ML PRE-MIX VIAL INH PRN (20:45)
[2021-04-11] MEDS ORDERED: NON-FORMULARY MEDICATION 1 EA EA (Duloxetine HCl 120 MG) PO SCH (21:00)
[2021-04-11] MEDS ORDERED: NON-FORMULARY MEDICATION 1 EA EA (Esomeprazole Magnesium 20 MG) PO SCH (21:00)
[2021-04-11] MEDS: MICONAZOLE 2% POWDER (DESENEX AF) 90 GM TOP SCH (21:17)
[2021-04-11] MEDS ORDERED: FUROSEMIDE 20 MG (LASIX) TAB ONE (21:29)
[2021-04-11] MEDS ORDERED: MELOXICAM 7.5 MG (MOBIC) TABLET PO ONE (21:30)
[2021-04-11] MEDS ORDERED: MONTELUKAST 10 MG (SINGULAIR) TAB ONE (21:30)
[2021-04-11] MEDS: MONTELUKAST 10 MG (SINGULAIR) TAB PO SCH (21:34)
[2021-04-11] MEDS: FUROSEMIDE 20 MG (LASIX) TAB PO SCH (21:34)
[2021-04-11] MEDS: MELOXICAM 7.5 MG (MOBIC) TABLET PO SCH (21:34)
[2021-04-11] MEDS: DULoxetine 30 MG (CYMBALTA) CAP PO SCH (21:42)
[2021-04-12] MEDS: POTASSIUM CL 10MEQ/50ML IVPB 50 ML IV SCH (05:55)
[2021-04-12] MEDS: MAGNESIUM 1 GM/100 ML IVPB 100 ML IV SCH (05:55)
[2021-04-12] MEDS: KCL 20 MEQ TAB (K-DUR) PO SCH (05:56)
[2021-04-12] MEDS: RT-ALBUTEROL/IPRATROPIUM 3 ML (DUONEB) VIAL INH SCH ×2 (07:54→21:36)
[2021-04-12] MEDS: FUROSEMIDE 20 MG (LASIX) TAB PO SCH ×2 (08:26→20:32)
[2021-04-12] MEDS: polyethylene glycoL POWDER 17 GM (MIRALAX) PACK PO SCH ×2 (08:26→20:44)
[2021-04-12] MEDS: MICONAZOLE 2% POWDER (DESENEX AF) 90 GM TOP SCH ×2 (08:27→20:44)
[2021-04-12] MEDS: SENNA W/DOCUSATE (SENOKOT S) TABLET PO SCH ×2 (08:27→20:44)
--- NOTE | 2021-04-12 10:16 | Cardiology Progress Note ---
Progress Note-Cardiology Events since last exam Date Seen by Provider: Apr 12, 2021 Time Seen by Provider: 10:15 Events since last exam I am following her due to atrial fibrillation and cardiomyopathy. She got out of bed yesterday and became very lightheaded. She denies syncope. This morning she denies chest discomfort, dyspnea at rest, palpitations, or syncope. No significant change in her chronic bilateral lower extremity edema. Certain portions of this document may have been dictated utilizing voice recognition technology. Inherent to this technology, typographical and grammatical errors may exist. As much as I am diligent to identify and correct these mistakes, some errors may remain in the document. Vitals Last set of Vitals Signs Vital Signs 04/12/21 04/12/21 04/12/21 12:00 15:55 17:07 Temp 36.5 Pulse 80 Resp 22 B/P (MAP) 130/64 Pulse Ox 91 O2 Delivery Room Air O2 Flow Rate 2.00 Exam Vital Signs Vital Signs Date Time Temp Pulse Resp B/P (MAP) Pulse Ox O2 Delivery O2 Flow Rate FiO2 04/12/21 17:07 Room Air 04/12/21 15:55 36.5 80 22 130/64 91 04/12/21 12:00 2.00 Physical Exam General: Alert. No acute distress. She is morbidly obese. Eye: No xanthelasma. HENT: Normocephalic. Neck: Jugular venous pressure does not appear elevated. Respiratory: Lungs are clear to auscultation. Respirations are non-labored. Breath sounds are equal. Symmetrical chest wall expansion. Cardiovascular: Tachycardia with irregular rhythm. Distant S1/S2. No murmur. No gallop. 3+ bilateral pretibial edema without venous stasis changes. Gastrointestinal: Soft. Normal bowel sounds. Skin: Warm. Dry. Neurologic: Alert and oriented to person, place, time. Cranial nerves 3-11 grossly intact. Psychiatric: Cooperative. Appropriate mood & affect. Diagnosis/Problems Diagnosis/Problems (1) Paroxysmal atrial fibrillation Assessment & Plan: It is not entirely clear to me whether she has paroxysmal atrial fibrillation or persistent atrial fibrillation. Nonetheless, she remains in atrial fibrillation. She missed some of her doses of anticoagulation while she was incarcerated. She has been taking metoprolol tartrate once daily. This may not be effective at controlling her heart rate since this is a twice daily formulation. I changed her metoprolol over to metoprolol succinate. Her anticoagulation has been resumed. If we can get her heart rates under control, she can likely be discharged home. Once she is discharged, she can follow-up with her sand analyst in [place]. (2) Cardiomyopathy Assessment & Plan: Her echocardiogram from 04/12 shows mild left ventricular systolic dysfunction. I have changed her metoprolol tartrate over to metoprolol succinate for the cardiomyopathy. I have also resumed her lisinopril. This will need to be followed by her regular sand analyst after discharge. As above, her regular sand analyst is in [place]. (3) Abnormal electrocardiogram Assessment & Plan: Her electrocardiogram shows a possible old anterior myocardial infarction. I suspect this is due to lead placement. Her troponin level was undetectable. Given her morbid obesity and body shape, it would be very difficult to perform an ischemic evaluation on this patient either by nuclear stress testing or cardiac catheterization. (4) Primary hypertension Assessment & Plan: Blood pressure is reasonably controlled with lisinopril and metoprolol. (5) Morbid obesity Status: Acute Assessment & Plan: She needs to lose weight or there will be very little chance of success in latter day of sinus rhythm. She listed off all of the foods and beverages she drinks and reports that she tries to limit her caloric intake but then reported she has been eating lots of ice cream cake. JESSIKA PHAN JR, MD Apr 12, 2021 10:16
--- NOTE | 2021-04-12 14:50 | Occupational Therapy Eval ---
OT Evaluation-General/PLF Medical Diagnosis Admission Date Apr 10, 2021 at 14:01 Medical Diagnosis: A-fib Onset Date: Apr 10, 2021 Therapy Diagnosis Therapy Diagnosis: n/a Height/Weight Height (Feet): 5 Height (Inches): 0 Weight (Pounds): 409 Weight (Ounces): 0 Precautions Precautions/Isolations: Fall Prevention, Standard Precautions Referral Physician: Cari Referral Reason: Evaluation/Treatment Medical History Pertinent Medical History: Atrial Fib Current History Pt presents to ER with SOA and chest pain. Found to be in A-fib. Per patient, she was incarcerated [place] and was unable to take her heart medication for 3 days. Appears to have poor living situation and has moved in with different family members throughout the last month. She reports that she will be discharging to safe home in [place]. Indep with all adls. No AD used. Reviewed History: Yes Social History Current Living Status: Other Family ADL-Prior Level of Function SCALE: Activities may be completed with or without assistive devices. 9-Iwnldcoefa-qvqgxkl completes the activity by him/herself with no assistance from a helper. 5-Set-up or Clean-up Assistance-helper sets up or cleans up; patient completes activity. [place] assists only prior to or following the activity. 4-Supervision or Touching Assistance-helper provides verbal cues and/or touching/steadying and/or contact guard assistance as patient completes activity. Assistance may be provided throughout the activity or intermittently. 3-Partial/Moderate Assistance-helper does LESS THAN HALF the effort. [place] lifts, holds or supports trunk or limbs, but provides less than half the effort. 2-Substantial/Maximal Assistance-helper does MORE THAN HALF the effort. [place] lifts or holds trunk or limbs and provides more than half the effort. 0-Qyvnnuocc-ludzgd does ALL the effort. Patient does none of the effort to complete the activity. Or, the assistance of 2 or more helpers is required for the patient to complete the activity. If activity was not attempted, code reason: 7-Patient Refused. 9-Not Applicable-not attempted and the patient did not perform the activity before the current illness, exacerbation or injury. 10-Not Attempted due to Environmental Limitations-(lack of equipment, weather restraints, etc.). 88-Not Attempted due to Medical Conditions or Safety Concerns. Self Care: Independent Functional Cognition: Independent OT Current Status Subjective Pt with high anxiety. C/o dizziness with all functional activities and at rest. Appearance Left sitting in chair, all needs within reach. RN notified. Mental Status/Objective Patient Orientation: Person, Place, Situation ADL-Treatment Eating (QC): 6 Oral Hygiene (QC): 6 On/Off Footwear (QC): 6 Toileting Hygiene (QC): 6 Pt walking in halls with PT at OT arrival, does not appear to be having any unsteadiness. Once Pt sees OT, she c/o dizziness, reaches for hand rail and reports need to sit. Appears to be very anxious. Physical therapy reports Pt was up ad karli to bathroom and completed all steps of toileting and hand washing without assistance. Pt able to don/doff shoes in sitting without assist. Pt is very hyper-verbal and requires cues to redirect back to task. Education OT Patient Education: Energy conservation, Modified ADL techniques, Purpose of tx/functional activities Teaching Recipient: Patient Teaching Methods: Discussion Response to Teaching: Verbalize Understanding OT Penitentiary Goals Brim Raiser Goals 1=Demonstrate adherence to instructed precautions during ADL tasks. 2=Patient will verbalize/demonstrate understanding of assistive devices/modifications for ADL. 3=Patient will improve strength/tolerance for activity to enable patient to perform ADL's. OT Education/Plan Problem List/Assessment Assessment: No Skilled OT Needs ID'd Discharge Recommendations Plan/Recommendations: Discontinue OT Therapy Discharge Recommendati: Home & Family Treatment Plan/Plan of Care Treatment,Training & Education: Yes Patient would benefit from OT for education, treatment and training to promote independence in ADL's, mobility, safety and/or upper extremity function for ADL's. Plan of Care: Functional Mobility Treatment Duration: Apr 12, 2021 Frequency: 1 time per week Estimated Hrs Per Day: .25 hour per day Agreement: Yes Time/GCodes Start Time: 14:28 Stop Time: 14:43 Total Time Billed (hr/min): 15 Billed Treatment Time 1 visit Jacki Pagan OT Apr 12, 2021 14:50
--- NOTE | 2021-04-12 14:54 | Progress Note - Hospitalist ---
INNA GIL 04/12/21 1454: Subjective HPI/CC On Admission Date Seen by Provider: Apr 12, 2021 Time Seen by Provider: 09:10 CC: AFIB with RVR HPI: This is a 45yo morbidly obese white female with a BMI of 72, who presented after not being on her Xarelto and AFIB meds due to being arrested and in senior care, who presented to the ER with palpitiations found to be in AFIB with RVR. Yulym rosanne maintained and cardiology has been consulted. She is very concerned that her meds given to her by her car installations supervisor in [place] will be changed so I tried to reassure her on that. Subjective/Events-last exam Patient states she still feels weak. Not sure if she can be discharged yet. Dr. Rebolledo would like her to get up and out of bed before clearing for discharge. Will move down to fourth floor and get PT/OT. Patient is being discharged to a safe-house in [place]. Review of Systems General: Fatigue Gastrointestinal: No: Nausea, Vomiting Objective Exam Vital Signs Vital Signs Date Time Temp Pulse Resp B/P (MAP) Pulse Ox O2 Delivery O2 Flow Rate FiO2 04/12/21 12:05 35.8 04/12/21 12:00 80 12 93 Nasal Cannula 2.00 Capillary Refill : Less Than 3 Seconds General Appearance: Obese Respiratory: No Accessory Muscle Use, No Respiratory Distress Cardiovascular: Irregularly Irregular Rectal: Deferred Neurologic/Psychiatric: Alert, Oriented x3, Normal Mood/Affect Results/Procedures Lab Patient resulted labs reviewed. Assessment/Plan Assessment and Plan Assess & Plan/Chief Complaint Assessment: Afib with RVR Morbid Obesity Insulin Dependent DM HLP-on fenofibrate and statin Psychiatric Issues Urinary issues- Seen by Dr. 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 worker will need help because she has a place to stay at the [facility] in [place] Review of Systems General: Fatigue Objective Exam General Appearance: No Apparent Distress, WD/WN, Chronically ill, Obese Respiratory: Lungs Clear, Normal Breath Sounds Cardiovascular: Irregularly Irregular Assessment/Plan Assessment and Plan Assess & Plan/Chief Complaint Discharge home tomorrow Supportive care Supervisory-Addendum Brief Verification & Attestation Participated in pt care: history, MDM, physical Personally performed: exam, history, MDM, supervision of care Care discussed with: Medical Student Procedures: n/a Results interpretation: Verified all documentation Verification and Attestation of Medical Student E/M Service A medical student performed and documented this service in my presence. I reviewed and verified all information documented by the medical student and made modifications to such information, when appropriate. I personally performed the physical exam and medical decision making. Christelle Li, Apr 13, 2021,05:53 INNA GIL Apr 12, 2021 14:54 CHRISTELLE LI DO Apr 13, 2021 05:54
--- NOTE | 2021-04-12 14:57 | Physical Therapy Evaluation ---
PT Evaluation-General Medical Diagnosis Admission Date Apr 10, 2021 at 14:01 Medical Diagnosis: A-fib with RVR Onset Date: Apr 10, 2021 Therapy Diagnosis Therapy Diagnosis: debility Height/Weight Height (Feet): 5 Height (Inches): 0 Weight (Pounds): 409 Weight (Ounces): 0 Precautions Precautions/Isolations: Fall Prevention, Standard Precautions Referral Physician: Cari Reason for Referral: Evaluation/Treatment Medical History Pertinent Medical History: Alcoholism, DM Current History EMS secondary to SOA/A-fib Reviewed History: Yes Social History Home: Apartment Prior Prior Level of Function SCALE: Activities may be completed with or without assistive devices. 0-Adioicyxse-fsgzkwn completes the activity by him/herself with no assistance from a helper. 5-Set-up or Clean-up Assistance-helper sets up or cleans up; patient completes activity. [place] assists only prior to or following the activity. 4-Supervision or Touching Assistance-helper provides verbal cues and/or touching/steadying and/or contact guard assistance as patient completes activity. Assistance may be provided throughout the activity or intermittently. 3-Partial/Moderate Assistance-helper does LESS THAN HALF the effort. [place] lifts, holds or supports trunk or limbs, but provides less than half the effort. 2-Substantial/Maximal Assistance-helper does MORE THAN HALF the effort. [place] lifts or holds trunk or limbs and provides more than half the effort. 9-Fopuqqukj-ngypai does ALL the effort. Patient does none of the effort to complete the activity. Or, the assistance of 2 or more helpers is required for the patient to complete the activity. If activity was not attempted, code reason: 7-Patient Refused. 9-Not Applicable-not attempted and the patient did not perform the activity before the current illness, exacerbation or injury. 10-Not Attempted due to Environmental Limitations-(lack of equipment, weather restraints, etc.). 88-Not Attempted due to Medical Conditions or Safety Concerns. Bed Mobility: 6 Transfers (B,C,W/C): 6 Gait: 6 Stairs: 6 Indoor Mobility (Ambulation): Independent Stairs: Independent Prior Devices Use: None PT Evaluation-Current Subjective Patient up independently in room upon arrival. Agrees to PT. Objective Patient Orientation: Normal For Age ROM/Strength ROM Lower Extremities bilateral LE WFL Strength Lower Extremities 4/5 grossly bilateral LE Integumentary/Posture Bowel Incontinence: No Bladder Incontinence: No Posture WFL Neuromuscular (Tone, Coordination, Reflexes) grossly intact Sensory Vision: Functional Hearing: Functional Transfers Lying to Sitting/Side of Bed(Q: 6 (per ground crew chief) Sit to Stand (QC): 6 Chair/Sez-vh-Cmnau Xfer(QC): 6 Toilet Transfer (QC): 6 Gait Does the Patient Walk?: Yes Mode of Locomotion: Walk Anticipated Mode of Locomotion: Walk Walk 10 feet (QC): 6 Walk 50 ft with 2 Turns(QC): 6 Walk 150 ft (QC): 6 Distance: 150' Gait Assistive Device: None Balance Sitting Static: Normal Sitting Dynamic: Normal Standing Static: Good Standing Dynamic: Good Assessment/Needs 45 y.o. female, is currently at [facility] with all gross motor skills and does not require skilled PT intervention at this time. Physician notified. Rehab Potential: Fair PT Plan Treatment/Plan Treatment Plan: Discontinue PT, goals met Treatment Duration: Apr 12, 2021 Frequency: 1 time per week Estimated Hrs Per Day: .25 hour per day Patient and/or Family Agrees t: Yes Time/GCodes Time In: 1413 Time Out: 1429 Total Billed Treatment Time: 16 Total Billed Treatment 1 visit EVModC 16 min SEVERO MCNAIR PT Apr 12, 2021 14:57
[2021-04-12] MEDS: RIVAROXABAN 20 MG TABLET (XARELTO) PO SCH (17:07)
[2021-04-12] MEDS ORDERED: ARTIFICAL TEARS 0.4 ML UNIT DOSE (REFRESH PLUS) OU PRN (20:15)
[2021-04-12] MEDS ORDERED: ARTIFICAL TEARS 0.4 ML UNIT DOSE (REFRESH PLUS) ONE (20:27)
[2021-04-12] MEDS: ALPRAZolam 0.25 MG (XANAX) TAB PO PRN (20:30)
[2021-04-12] MEDS: DULoxetine 30 MG (CYMBALTA) CAP PO SCH (20:30)
[2021-04-12] MEDS: MONTELUKAST 10 MG (SINGULAIR) TAB PO SCH (20:31)
[2021-04-12] MEDS: meTOprolol SUCCINATE 100 MG (TOPROL XL) TAB PO SCH (20:31)
[2021-04-12] MEDS: lisINopril 10 MG (PRINIVIL) TABLET PO SCH (20:32)
[2021-04-12] MEDS: MELOXICAM 7.5 MG (MOBIC) TABLET PO SCH (20:32)
[2021-04-12] MEDS: PANTOPRAZOLE 20 MG TABLET (PROTONIX) PO SCH (20:33)
[2021-04-12] MEDS: MELATONIN 3 MG TABLET PO PRN (20:33)
[2021-04-12] MEDS: HYDROcodone/APAP 5 MG/325 MG (LORTAB) TAB PO PRN (20:34)
[2021-04-13] MEDS: guaiFENesin/CODEINE (ROBITUSSIN AC) 10ML UDC PO PRN (02:30)
[2021-04-13] MEDS: FUROSEMIDE 20 MG (LASIX) TAB PO SCH ×2 (08:20→18:42)
[2021-04-13] MEDS: ALPRAZolam 0.25 MG (XANAX) TAB PO PRN ×2 (08:25→18:42)
[2021-04-13] MEDS: HYDROcodone/APAP 5 MG/325 MG (LORTAB) TAB PO PRN ×3 (08:25→18:47)
[2021-04-13] MEDS: polyethylene glycoL POWDER 17 GM (MIRALAX) PACK PO SCH (10:12)
[2021-04-13] MEDS: SENNA W/DOCUSATE (SENOKOT S) TABLET PO SCH (10:12)
[2021-04-13] MEDS ORDERED: RIVA20TA PO (11:09)
[2021-04-13] MEDS ORDERED: MELO7.5T46 PO (11:09)
[2021-04-13] MEDS ORDERED: ESOM20CA37 PO (11:09)
[2021-04-13] MEDS ORDERED: LISI10TA25 PO (11:09)
[2021-04-13] MEDS ORDERED: DULO60CA59 PO (11:09)
[2021-04-13] MEDS ORDERED: METO50TA15 PO (11:09)
[2021-04-13] MEDS ORDERED: CARB1DRO OU (11:09)
[2021-04-13] MEDS ORDERED: NYST60PO TOP (11:09)
[2021-04-13] MEDS ORDERED: TIZA-186 PO (11:09)
[2021-04-13] MEDS ORDERED: MONT-40 PO (11:09)
[2021-04-13] MEDS ORDERED: FURO20TA4 PO (11:09)
[2021-04-13] MEDS ORDERED: RT-ALBUINH INH (11:09)
--- NOTE | 2021-04-13 11:10 | Discharge Summary ---
Discharge Summary Hospital Course Was the Problem List Reviewed?: Yes Problems/Dx: (1) Paroxysmal atrial fibrillation (2) Cardiomyopathy (3) Abnormal electrocardiogram (4) Primary hypertension (5) Morbid obesity Status: Acute Hospital Course Date of Admission: Apr 10, 2021 at 14:01 Admission Diagnosis : Family Physician/Provider: Victorina Cano MD Date of Discharge: 04/13/21 Discharge Diagnosis: A. fib with RVR, noncompliance, super morbid obesity with BMI 72, manipulative behavior Hospital Course: Patient is a 45 year old female who was admitted to [facility] ICU on 04/10 from the ER for atrial fibrillation, shortness of air, and chest pain. Patient has a history of atrial fibrillation and is on medications at home for this. Patient was incarcerated on and was unable to to take her medications for three days. She began having feelings of chest pain, palpitations, and light- headedness and came to the ER for evaluation. Patient was found to be in Afib with RVR and placed on IV diltiazem and admitted to the ICU. Patient was seen by Dr. Rebolledo, cardiology, who switched her metoprolol tartrate over to succinate and restarted her lisinopril. Patient was able to be weaned off of the diltiazem drip and transferred to the fourth floor on 04/12/2021. On 04/13/2021, patient was set to be discharged. Her home medications were sent to the [facility] pharmacy for pick-up at [facility] on 04/13/2021. Patient has indicated she will follow-up with her PCP and red lead burner in [place] JEFFREYINNA Apr 13, 2021 12:45 Labs and Pending Lab Test: Microbiology 04/10/21 MRSA Screen - Final, Complete Home Meds Active Refresh Plus (Carboxymethylcellulose Sodium) 1 Each Droperette 0 Each OU PRN PRN Furosemide 20 Mg Tablet 20 Mg PO BID Meloxicam 7.5 Mg Tablet 7.5 Mg PO HS Nystop (Nystatin) 60 Gm Powder 1 Applic TOP BID PRN Duloxetine HCl 60 Mg Capsule.dr 120 Mg PO HS TAKES 2 (60MG) CAPS Tizanidine HCl 4 Mg Tablet 4 Mg PO BID PRN Xarelto (Rivaroxaban) 20 Mg Tablet 20 Mg PO HS Metoprolol Tartrate 50 Mg Tablet 100 Mg PO HS TAKES 2 (50MG) TABS Lisinopril 10 Mg Tablet 10 Mg PO HS Esomeprazole Magnesium 20 Mg Capsule.dr 20 Mg PO HS Proventil Hfa (Albuterol Sulfate) 6.7 Gm Hfa.aer.ad 2 Puff INH Q4H PRN Montelukast Sodium 10 Mg Tablet 10 Mg PO HS Assessment/Pt Instructions PCP in 1 week Discharge Planning: <30 minutes discharge planning Discharge Instructions Discharge Diet: No Restrictions Activity as Tolerated: Yes Discharge Physical Examination Vital Signs Vital Signs Date Time Temp Pulse Resp B/P (MAP) Pulse Ox O2 Delivery O2 Flow Rate FiO2 04/13/21 07:28 35.8 84 20 116/77 93 Room Air 04/13/21 04:11 2.00 General Appearance: No Apparent Distress, WD/WN, Chronically ill, Obese Neurologic/Psychiatric: Alert, Oriented x3 Allergies: Coded Allergies: No Known Drug Allergies (Unverified , 08/08/16) Discharge Summary Date of Admission Apr 10, 2021 at 14:01 Date of Discharge Discharge Date: Apr 13, 2021 Admission Diagnosis Atrial fibrillation with rapid response Discharge Diagnosis Discharge home tomorrow Supportive care (1) Paroxysmal atrial fibrillation Assessment & Plan: It is not entirely clear to me whether she has paroxysmal atrial fibrillation or persistent atrial fibrillation. Nonetheless, she remains in atrial fibrillation. She missed some of her doses of anticoagulation while she was incarcerated. She has been taking metoprolol tartrate once daily. This may not be effective at controlling her heart rate since this is a twice daily formulation. I changed her metoprolol over to metoprolol succinate. Her anticoagulation has been resumed. If we can get her heart rates under control, she can likely be discharged home. Once she is discharged, she can follow-up with her red lead burner in [place]. (2) Cardiomyopathy Assessment & Plan: Her echocardiogram from 04/12 shows mild left ventricular systolic dysfunction. I have changed her metoprolol tartrate over to metoprolol succinate for the cardiomyopathy. I have also resumed her lisinopril. This will need to be followed by her regular red lead burner after discharge. As above, her regular red lead burner is in [place]. (3) Abnormal electrocardiogram Assessment & Plan: Her electrocardiogram shows a possible old anterior myocardial infarction. I suspect this is due to lead placement. Her troponin level was undetectable. Given her morbid obesity and body shape, it would be very difficult to perform an ischemic evaluation on this patient either by nuclear stress testing or cardiac catheterization. (4) Primary hypertension Assessment & Plan: Blood pressure is reasonably controlled with lisinopril and metoprolol. (5) Morbid obesity Status: Acute Assessment & Plan: She needs to lose weight or there will be very little chance of success in hindu of sinus rhythm. She listed off all of the foods and beverages she drinks and reports that she tries to limit her caloric intake but then reported she has been eating lots of ice cream cake. Clinical Quality Measures AMI/AHF: ASA po Prior to arrival: NEETU Young DO Apr 13, 2021 11:10
[2021-04-13] MEDS: MICONAZOLE 2% POWDER (DESENEX AF) 90 GM TOP SCH (12:00)
--- NOTE | 2021-04-13 12:45 | Progress Note ---
INNA GIL 04/13/21 1245: Progress Note Patient is a 45 year old female who was admitted to [facility] ICU on 04/10 from the ER for atrial fibrillation, shortness of air, and chest pain. Patient has a history of atrial fibrillation and is on medications at home for this. Patient was incarcerated on [place] and was unable to to take her medications for three days. She began having feelings of chest pain, palpitations, and light- headedness and came to the ER for evaluation. Patient was found to be in Afib with RVR and placed on IV diltiazem and admitted to the ICU. Patient was seen by Dr. Rebolledo, cardiology, who switched her metoprolol tartrate over to succinate and restarted her lisinopril. Patient was able to be weaned off of the diltiazem drip and transferred to the fourth floor on 04/12/2021. On 04/13/2021, patient was set to be discharged. Her home medications were sent to the [facility] pharmacy for pick-up at [facility] on 04/13/2021. Patient has indicated she will follow-up with her PCP and digital sales manager in [place], [place] CHRISTELLE LI DO 04/13/21 1610: Supervisory-Addendum Brief Verification & Attestation Participated in pt care: history, MDM, physical Personally performed: exam, history, MDM, supervision of care Care discussed with: Medical Student Procedures: n/a Results interpretation: Verified all documentation Verification and Attestation of Medical Student E/M Service A medical student performed and documented this service in my presence. I reviewed and verified all information documented by the medical student and made modifications to such information, when appropriate. I personally performed the physical exam and medical decision making. Christelle Li Apr 13, 2021,16:10 INNA GIL Apr 13, 2021 12:45 CHRISTELLE LI DO Apr 13, 2021 16:10
--- NOTE | 2021-04-13 12:59 | Cardiology Progress Note ---
Progress Note-Cardiology Events since last exam Date Seen by Provider: Apr 13, 2021 Time Seen by Provider: 12:58 Events since last exam I had been asked to see her due to atrial fibrillation. She is currently preparing for discharge. She has already contacted her pharmacologist in [place] and plans to see that person in the near future. As such, I will not formally see the patient today. Vitals Last set of Vitals Signs Vital Signs 04/13/21 04/13/21 04:11 11:30 Temp 36.2 Pulse 93 Resp 20 B/P (MAP) 138/83 Pulse Ox 93 O2 Delivery Room Air O2 Flow Rate 2.00 Exam Vital Signs Vital Signs Date Time Temp Pulse Resp B/P (MAP) Pulse Ox O2 Delivery O2 Flow Rate FiO2 04/13/21 11:30 36.2 93 20 138/83 93 Room Air 04/13/21 04:11 2.00 JESSIKA PHAN JR, MD Apr 13, 2021 12:59
[2021-04-13] MEDS: RIVAROXABAN 20 MG TABLET (XARELTO) PO SCH (16:58)
[2021-04-13] MEDS: DULoxetine 30 MG (CYMBALTA) CAP PO SCH (18:42)
[2021-04-13] MEDS: MONTELUKAST 10 MG (SINGULAIR) TAB PO SCH (18:42)
[2021-04-13] MEDS: lisINopril 10 MG (PRINIVIL) TABLET PO SCH (18:42)
[2021-04-13] MEDS: meTOprolol SUCCINATE 100 MG (TOPROL XL) TAB PO SCH (18:42)
[2021-04-13] MEDS: MELOXICAM 7.5 MG (MOBIC) TABLET PO SCH (18:42)
[2021-04-13] MEDS: PANTOPRAZOLE 20 MG TABLET (PROTONIX) PO SCH (18:42)
== END 2021-04-13 18:50 | disposition home or self-care (01) | DRG 309 ==
LOC: ER 12:11 → ICU 14:01 → 4TH 04-12 13:50
PROVIDERS: ADMIT Internal Medicine; ATTEND Internal Medicine
DX: I48.0 Paroxysmal atrial fibrillation (principal); E66.2 Morbid (severe) obesity with alveolar hypoventilation; Z68.45 Body mass index [BMI] 70 or greater, adult; I42.9 Cardiomyopathy, unspecified; I10 Essential (primary) hypertension; K21.9 Gastro-esophageal reflux disease without esophagitis; E11.9 Type 2 diabetes mellitus without complications; E78.00 Pure hypercholesterolemia, unspecified; G89.29 Other chronic pain; M54.9 Dorsalgia, unspecified; Z20.822 Contact with and (suspected) exposure to COVID-19; F41.9 Anxiety disorder, unspecified; F60.9 Personality disorder, unspecified; F32.A Depression, unspecified; Z91.19 Patient's noncompliance with other medical treatment and regimen; I25.2 Old myocardial infarction; Z79.82 Long term (current) use of aspirin; Z79.4 Long term (current) use of insulin; Z79.84 Long term (current) use of oral hypoglycemic drugs; Z79.899 Other long term (current) drug therapy
CPT/HCPCS: 36415; 36600; 71045; 80053; 80061; 82805; 83735; 83874; 83880; 84484; 84703; 85025; 85610; 85730; 87081; 87636; 93005; 93041; 93306; 94640; 99291

== ENCOUNTER 2021-05-15 14:41 | Emergency (ER) | payer MEDICAID ==
[~2021-05-15 14:41] MED LIST changes: +CARB1DRO OU; +DULO60CA59 PO; +ESOM20CA37 PO; +LISI10TA25 PO; +MELO7.5T46 PO; +METO50TA15 PO; +NYST60PO TOP; +RIVA20TA PO; +RT-ALBUINH INH; +TIZA-186 PO
[2021-05-15 15:34] LABS: BASOPHILS % (AUTO) 1 % (0-10); EOSINOPHILS # (AUTO) 0.2 10^3/uL (0.0-0.3); EOSINOPHILS % (AUTO) 2 % (0-10); HEMATOCRIT 36 % (35-52); HEMOGLOBIN 11.4 g/dL (11.5-16.0); LYMPHOCYTES # (AUTO) 1.9 10^3/uL (1.0-4.0); LYMPHOCYTES % (AUTO) 27 % (12-44); MEAN CORPUSCULAR HEMOGLOBIN 29 pg (25-34); MEAN CORPUSCULAR HGB CONC 31 g/dL (32-36); MEAN CORPUSCULAR VOLUME 92 fL (80-99); MEAN PLATELET VOLUME 10.8 fL (9.0-12.2); MONOCYTES # (AUTO) 0.5 10^3/uL (0.0-1.0); MONOCYTES % (AUTO) 7 % (0-12); NEUTROPHILS # (AUTO) 4.3 10^3/uL (1.8-7.8); NEUTROPHILS % (AUTO) 61 % (42-75); PLATELET COUNT 166 10^3/uL (130-400)
[2021-05-15 15:39] LABS: ALBUMIN 3.1 GM/DL (3.2-4.5)
[2021-05-15 15:41] LABS: CALCIUM 7.9 MG/DL (8.5-10.1)
[2021-05-15 15:42] LABS: TOTAL PROTEIN 6.1 GM/DL (6.4-8.2)
[2021-05-15 15:43] LABS: BILIRUBIN,TOTAL 0.4 MG/DL (0.1-1.0); INR 1.2 (0.8-1.4); PROTHROMBIN TIME PATIENT 15.4 SEC (12.2-14.7)
[2021-05-15 15:45] LABS: CREATININE SERUM 0.67 MG/DL (0.60-1.30)
[2021-05-15 15:48] LABS: MAGNESIUM 1.6 MG/DL (1.6-2.4)
--- NOTE | 2021-05-15 15:50 | Diagnostic Imaging Report ---
INDICATION: Chest pain. TIME OF EXAM: 3:51 PM CORRELATION is made with prior chest from 04/10/2021. The heart is enlarged. There is central congestion but no overt failure. No effusion or pneumothorax is seen. IMPRESSION: Cardiomegaly and central congestion. Dictated by: Dictated on workstation # [id number]
[2021-05-15] MEDS ORDERED: ACETAMINOPHEN 500 MG TAB (TYLENOL) PO ONE (19:15)
--- NOTE | 2021-05-15 19:29 | ED General ---
General Chief Complaint: Respiratory Problems Stated Complaint: SOB Nursing Triage Note: PT TO RM [facility] BY [facility] WITH C/O SOB. PT IS 16 DAYS POST COVID POSITIVE TEST. PT WAS SEEN BY HOME HEALTH TO ASSESS O2 NEEDS TODAY Source of Information: Patient Exam Limitations: No Limitations History of Present Illness Date Seen by Provider: May 15, 2021 Time Seen by Provider: 16:12 Initial Comments This 45-year-old woman presents to the emergency room with complaints of shortness of breath and hypoxia. She states her shortness of breath has been worsening in recent months as she has gained more weight. She also reports being diagnosed with COVID-19 about 2 weeks ago. She reports having hypoxic courtnye surements into the 80s at home with exertion. There was a business development representative from [facility] at the home today to help her get set up with home oxygen. They were concerned about her dyspnea on exertion and her heart rate which is in the 110s. She therefore came to the ER. She has also been having chest discomfort since having Covid. She is on Xarelto due to her atrial fibrillation and she reports daily compliance with Xarelto. However, she has not been compliant with her metoprolol tartrate. She presumed she could take 2 tablets once a day instead of 1 tablet twice a day. She has not had her metoprolol since about 0100. Patient reports she lost 200 pounds when she was incarcerated several years ago. She returned home about 6 months ago and has gained approximately 120 pounds in that amount of time. Shortness of breath seems to have worsened with weight gain. Allergies and Home Medications Allergies Coded Allergies: No Known Drug Allergies (Unverified , 08/08/16) Patient Home Medication List Home Medication List Reviewed: Yes Albuterol Sulfate (Proventil Hfa) 6.7 Gm Hfa.aer.ad, 2 PUFF INH Q4H PRN for SHORTNESS OF BREATH Prescribed by: NEETU LI on 04/13/211108 Carboxymethylcellulose Sodium (Refresh Plus) 1 Each Droperette, 0 EACH OU PRN PRN for DRY EYES Prescribed by: NEETU LI on 04/13/211108 Duloxetine HCl (Duloxetine HCl) 60 Mg Capsule., 120 MG PO HS Prescribed by: NEETU LI on 04/13/211108 Esomeprazole Magnesium (Esomeprazole Magnesium) 20 Mg Capsule., 20 MG PO HS Prescribed by: NEETU LI on 04/13/211108 Furosemide (Furosemide) 20 Mg Tablet, 20 MG PO BID Prescribed by: NEETU LI on 04/13/211108 Lisinopril (Lisinopril) 10 Mg Tablet, 10 MG PO HS Prescribed by: NEETU LI on 04/13/211108 Meloxicam (Meloxicam) 7.5 Mg Tablet, 7.5 MG PO HS Prescribed by: NEETU LI on 04/13/211108 Metoprolol Tartrate (Metoprolol Tartrate) 50 Mg Tablet, 100 MG PO HS Prescribed by: NEETU LI on 04/13/211108 Montelukast Sodium (Montelukast Sodium) 10 Mg Tablet, 10 MG PO HS Prescribed by: NEETU LI on 04/13/211108 Nystatin (Nystop) 60 Gm Powder, 1 APPLIC TOP BID PRN for RESTLESSNESS Prescribed by: NEETU LI on 04/13/211108 Rivaroxaban (Xarelto) 20 Mg Tablet, 20 MG PO HS Prescribed by: NEETU LI on 04/13/211108 Tizanidine HCl (Tizanidine HCl) 4 Mg Tablet, 4 MG PO BID PRN for MUSCLE SPASMS Prescribed by: NEETU LI on 04/13/211108 Review of Systems Review of Systems Constitutional: see HPI, weight gain EENTM: no symptoms reported Respiratory: see HPI Cardiovascular: see HPI Gastrointestinal: no symptoms reported Genitourinary: no symptoms reported : No Musculoskeletal: no symptoms reported Skin: no symptoms reported Psychiatric/Neurological: No Symptoms Reported Hematologic/Lymphatic: No Symptoms Reported Past Vbltegw-Wqpfgw-Usrqcy Hx Patient Social History Tobacco Use?: No Substance use?: No Alcohol Use?: No Pt feels they are or have been: No Immunizations Up To Date Tetanus Booster (TDap): Unknown PED Vaccines UTD: No Influenza Vaccine Up-to-Date: No; Not Current First/Initial COVID19 Vaccinat: 09/01 Second COVID19 Vaccination Tesfaye: 10/02 Third COVID19 Vaccination Date: 09/01 Seasonal Allergies Seasonal Allergies: No Past Medical History Surgery/Hospitalization HX: HTN, AFIB, ASTHMA, GERD, IDDM Surgeries: Yes Adenoidectomy, Bladder Surgery, Tonsillectomy Respiratory: Yes Asthma, Sleep Apnea, COPD Currently Using CPAP: No (noncompliant) Currently Using BIPAP: Yes Cardiac: No Chronic Edema/Swelling, High Cholesterol, Hypertension Neurological: No Last Menstrual Period: Mar 28, 2021 Reproductive Disorders: No Female Reproductive Disorders: Denies Sexually Transmitted Disease: No HIV/AIDS: No Genitourinary: Yes (UTI) Gastrointestinal: Yes Gastroesophageal Reflux, Chronic Constipation Musculoskeletal: Yes Chronic Back Pain Endocrine: Yes (Morbid obesity) Diabetes, Insulin dep HEENT: No Loss of Vision: Denies Hearing Impairment: Denies Cancer: No Psychosocial: Yes Anxiety, Personality Disorder, Depression Integumentary: Yes (Diabetic ulcers) Eczema Blood Disorders: No Adverse Reaction/Blood Tranf: No Family Medical History Reviewed Nursing Family Hx Cancer 19 FATHER, Onset:Unknown 19 MOTHER, Onset:Unknown Cancer of colon 19 FATHER, Onset:Unknown 19 MOTHER, Onset:Unknown Family history: Cardiovascular disease 19 FATHER, Onset:Unknown 19 MOTHER, Onset:Unknown Family history: Diabetes mellitus 19 FATHER, Onset:Unknown 19 MOTHER, Onset:Unknown Heart Disease, Seizures Physical Exam Vital Signs Vital Signs - First Documented 05/15/21 14:41 Temp 36.2 Pulse 110 Resp 30 B/P (MAP) 155/105 (122) Pulse Ox 98 O2 Delivery Nasal Cannula O2 Flow Rate 2.00 Capillary Refill : Height, Weight, BMI Height: 5'0" Weight: 409lbs. 0oz. 185.942547lx; 72.22 BMI Method:Stated General Appearance: No Apparent Distress, WD/WN, Obese HEENT: PERRL/EOMI, Normal ENT Inspection Neck: Normal Inspection Respiratory: Lungs Clear, Normal Breath Sounds, No Accessory Muscle Use Cardiovascular: No Edema, Irregularly Irregular (Intermittent mild tachycardia) Gastrointestinal: Normal Bowel Sounds, Non Tender, Soft Extremity: Normal Inspection, No Pedal Edema Neurologic/Psychiatric: Alert, Oriented x3, No Motor/Sensory Deficits, Normal Mood/Affect, cooper helper II-XII Norm as Tested Skin: Normal Color, Warm/Dry Progress/Results/Core Measures Suspected Sepsis SIRS Temperature: Pulse: 110 Respiratory Rate: 30 Laboratory Tests 05/15/21 14:50: White Blood Count 7.0 Blood Pressure 155 /105 Mean: 122 Laboratory Tests 05/15/21 14:50: Creatinine 0.67, INR Comment 1.2, Platelet Count 166, Total Bilirubin 0.4 Results/Orders Lab Results Laboratory Tests Test 05/15/21 14:50 05/15/21 16:07 05/15/21 16:20 05/15/21 16:43 Range/Units White Blood Count 7.0 4.3-11.0 10^3/uL Red Blood Count 3.98 3.80-5.11 10^6/uL Hemoglobin 11.4 L 11.5-16.0 g/dL Hematocrit 36 35-52 % Mean Corpuscular Volume 92 80-99 fL Mean Corpuscular Hemoglobin 29 25-34 pg Mean Corpuscular Hemoglobin Concent 31 L 32-36 g/dL Red Cell Distribution Width 15.3 H 10.0-14.5 % Platelet Count 166 130-400 10^3/uL Mean Platelet Volume 10.8 9.0-12.2 fL Immature Granulocyte % (Auto) 2 % Neutrophils (%) (Auto) 61 42-75 % Lymphocytes (%) (Auto) 27 12-44 % Monocytes (%) (Auto) 7 0-12 % Eosinophils (%) (Auto) 2 0-10 % Basophils (%) (Auto) 1 0-10 % Neutrophils # (Auto) 4.3 1.8-7.8 10^3/uL Lymphocytes # (Auto) 1.9 1.0-4.0 10^3/uL Monocytes # (Auto) 0.5 0.0-1.0 10^3/uL Eosinophils # (Auto) 0.2 0.0-0.3 10^3/uL Basophils # (Auto) 0.0 0.0-0.1 10^3/uL Immature Granulocyte # (Auto) 0.1 0.0-0.1 10^3/uL Prothrombin Time 15.4 H 12.2-14.7 SEC INR Comment 1.2 0.8-1.4 Activated Partial Thromboplast Time 30 24-35 SEC Sodium Level 137 135-145 MMOL/L Potassium Level 4.0 3.6-5.0 MMOL/L Chloride Level 105 98-107 MMOL/L Carbon Dioxide Level 24 21-32 MMOL/L Anion Gap 8 5-14 MMOL/L Blood Urea Nitrogen 17 7-18 MG/DL Creatinine 0.67 0.60-1.30 MG/DL Estimat Glomerular Filtration Rate 108 BUN/Creatinine Ratio 25 Glucose Level 204 H 70-105 MG/DL Calcium Level 7.9 L 8.5-10.1 MG/DL Corrected Calcium 8.6 8.5-10.1 MG/DL Magnesium Level 1.6 1.6-2.4 MG/DL Total Bilirubin 0.4 0.1-1.0 MG/DL Aspartate Amino Transf (AST/SGOT) 17 5-34 U/L Alanine Aminotransferase (ALT/SGPT) 14 0-55 U/L Alkaline Phosphatase 92 40-136 U/L Myoglobin 24.8 10.0-92.0 NG/ML Troponin I < 0.028 <0.028 NG/ML C-Reactive Protein High Sensitivity 1.78 H 0.00-0.50 MG/DL B-Type Natriuretic Peptide 163.2 H <100.0 PG/ML Total Protein 6.1 L 6.4-8.2 GM/DL Albumin 3.1 L 3.2-4.5 GM/DL Serum Test, Qualitative NEGATIVE NEGATIVE Coronavirus (COVID-19)(PCR) Negative Negative Influenza Type A Antigen NEGATIVE NEGATIVE Influenza Type B Antigen NEGATIVE NEGATIVE SARS-CoV-2 RNA (RT-PCR) Not Detected Negative My Orders Orders - NASREEN BILLS MD Cbc With Automated Diff (05/15/21 15:28) Magnesium (05/15/21 15:28) Chest 1 View, Ap/Pa Only (05/15/21 15:28) Ekg Tracing (05/15/21 15:28) Comprehensive Metabolic Panel (05/15/21 15:28) Myoglobin Serum (05/15/21 15:28) Protime With Inr (05/15/21 15:28) Partial Thromboplastin Time (05/15/21 15:28) O2 (05/15/21 15:28) Monitor-Rhythm Ecg Trace Only (05/15/21 15:28) Ed Iv/Invasive Line Start (05/15/21 15:28) Bnp Alicja (05/15/21 15:28) Troponin I [place] (05/15/21 15:28) Hs C Reactive Protein (05/15/21 15:28) Hcg,Qualitative Serum (05/15/21 15:28) Covid 19 Inhouse Test (05/15/21 16:07) Influenza A & B Antigens (05/15/21 16:07) Coronavirus Sars-Cov-2 So 2019 (05/15/21 16:07) Acetaminophen Tablet (Tylenol Tablet) (05/15/21 19:15) Medications Given in ED Vital Signs/I&O 05/15/21 05/15/21 05/15/21 14:41 14:45 20:50 Temp 36.2 Pulse 110 98 Resp 30 25 B/P (MAP) 155/105 (122) 139/117 Pulse Ox 98 96 94 O2 Delivery Nasal Cannula Nasal Cannula Nasal Cannula O2 Flow Rate 2.00 2.00 2.00 2.00 Capillary Refill : Blood Pressure Mean: 122 Progress Note : Progress Note Although patient reports oxygen saturations in the 80s at home, we are not able to replicate those saturations here initially. She has had a couple of drops into the high 80s for just a few seconds at a time. Respiratory therapy performed exercise qualifying pulse oximetry and documented an oxygen saturation of 87%. Patient's heart rate was slowly escalating and it was noted that she has not been taking her metoprolol as directed. She has been taking 2 tablets once a day instead of 1 tablet twice a day. She is well past time for her second dose. Patient was given 2 of her own metoprolol tartrate tablets equaling 100 mg. Home oxygen was ordered through [facility]. ECG Initial ECG Impression Date: May 15, 2021 Initial ECG Impression Time: 16:12 Initial ECG Rate: 99 Initial ECG Impression: Atrial Fibrillation Comment Atrial fibrillation with no ST elevation or depression. QTc 520 ms. No axis deviation. Diagnostic Imaging Diagonstic Imaging: Xray Plain Films/CT/US/NM/MRI: chest Comments Chest x-ray viewed by me and report reviewed. See report below: NAME: ISAMAR BOYLE I MED REC#: [id number] PT STATUS: REG ER : 1975 PHYSICIAN: NASREEN BILLS MD ADMIT DATE: 05/15/21/ER Signed Date of Exam:05/15/21 CHEST 1 VIEW, AP/PA ONLY INDICATION: Chest pain. TIME OF EXAM: 3:51 PM CORRELATION is made with prior chest from 04/10/2021. The heart is enlarged. There is central congestion but no overt failure. No effusion or pneumothorax is seen. IMPRESSION: Cardiomegaly and central congestion. Dictated by: Dictated on workstation # [id number] Dict: 05/15/21 1547 Trans: 05/15/21 1629 [facility] [id number] Interpreted by: GREG VELÁSQUEZ MD Electronically signed by: GREG VELÁSQUEZ MD 05/15/21 1629 Departure Impression Primary Impression: Post-COVID syndrome Additional Impressions: Atrial fibrillation Qualified Codes: I48.91 - Unspecified atrial fibrillation Morbid obesity Hypoxia Asthma Qualified Codes: J45.909 - Unspecified asthma, uncomplicated Disposition: HOME, SELF-CARE Condition: Stable Departure-Patient Inst. Decision time for Depature: 20:28 Referrals: ZAINAB HESS MD (PCP/Family) Primary Care Physician Patient Instructions: COVID-19 ED, Oxygen Therapy, Adult Add. Discharge Instructions: Please follow-up with your primary care provider soon as possible. Use your oxygen concentrator when sleeping and with exertion. Use your medications including your inhaler as prescribed. The metoprolol tartrate you are taking should be taken every 12 hours. I am recommending that you increase the dose to 100 mg every 12 hours. If you are uncomfortable increasing the dose, I recommend that you at least change the frequency to 50 mg twice daily. Be sure to take your Xarelto blood thinner every day at the same time. Do not skip doses. Call with questions or concerns. Return to the ER if you have worsening symptoms. All discharge instructions reviewed with patient and/or family. Voiced understanding. Copy Copies To 1: ZAINAB HESS MD, JOSHUA T MD May 15, 2021 19:29
[2021-05-15 20:50] VITALS: BP 139/117
== END 2021-05-15 21:27 | disposition home or self-care (01) ==
LOC: EDUNIT# 14:41 → ER 14:42
DX: U09.9 Post COVID-19 condition, unspecified (principal); I48.91 Unspecified atrial fibrillation; R09.02 Hypoxemia; E66.01 Morbid (severe) obesity due to excess calories; J44.9 Chronic obstructive pulmonary disease, unspecified; F41.9 Anxiety disorder, unspecified; G47.30 Sleep apnea, unspecified; I10 Essential (primary) hypertension; F32.9 Major depressive disorder, single episode, unspecified; K21.9 Gastro-esophageal reflux disease without esophagitis; E11.9 Type 2 diabetes mellitus without complications; Z20.822 Contact with and (suspected) exposure to COVID-19; Z68.45 Body mass index [BMI] 70 or greater, adult; Z79.899 Other long term (current) drug therapy; Z79.01 Long term (current) use of anticoagulants
CPT/HCPCS: 36415; 71045; 80053; 83735; 83874; 83880; 84484; 84703; 85025; 85610; 85730; 86141; 87635; 87636; 87804; 93005; 93041; 94761

== ENCOUNTER 2021-07-10 15:50 | Emergency (ER) | payer MEDICAID ==
[~2021-07-10] VITALS: Ht 160 cm; Wt 182.0 kg
[2021-07-10 15:50] VITALS: BP 146/122
[2021-07-10] MEDS ORDERED: ORPHENADRINE 60 MG/2 ML (NORFLEX) AMP (ED ONLY) IM ONE (16:00)
[2021-07-10] MEDS ORDERED: KETOROLAC 60 MG/2 ML VIAL IM ONE (16:00)
--- NOTE | 2021-07-10 16:03 | ED Head Injury ---
General Chief Complaint: Head/Cervical Problems Stated Complaint: NECK PAIN Source: patient Exam Limitations: no limitations History of Present Illness Date Seen by Provider: Jul 10, 2021 Time Seen by Provider: 16:00 Initial Comments To ER by EMS from [facility]. She turned her head and felt a pop in her neck and subsequent bilateral arm pain and left arm weakness. Shes worrried about a stroke from her a-fib though she is on Xarelto and has not missed any doses. Occurred: this evening Severity: moderate Loss of Consciousness: no loss of consciousness Associated Systoms: Headaches, Nausea/Vomiting Allergies and Home Medications Allergies Coded Allergies: No Known Drug Allergies (Unverified , 08/08/16) Patient Home Medication List Home Medication List Reviewed: Yes Albuterol Sulfate (Proventil Hfa) 6.7 Gm Hfa.aer.ad, 2 PUFF INH Q4H PRN for SHORTNESS OF BREATH Prescribed by: NEETU LI on 04/13/211108 Carboxymethylcellulose Sodium (Refresh Plus) 1 Each Droperette, 0 EACH OU PRN PRN for DRY EYES Prescribed by: NEETU LI on 04/13/21 110 Duloxetine HCl (Duloxetine HCl) 60 Mg Capsule.dr, 120 MG PO HS Prescribed by: NEETU LI on 04/13/21 110 Esomeprazole Magnesium (Esomeprazole Magnesium) 20 Mg Capsule.dr, 20 MG PO HS Prescribed by: NEETU LI on 04/13/21 110 Furosemide (Furosemide) 20 Mg Tablet, 20 MG PO BID Prescribed by: NEETU LI on 04/13/211108 Lisinopril (Lisinopril) 10 Mg Tablet, 10 MG PO HS Prescribed by: NEETU LI on 04/13/21 110 Meloxicam (Meloxicam) 7.5 Mg Tablet, 7.5 MG PO HS Prescribed by: NEETU LI on 04/13/21 110 Metoprolol Tartrate (Metoprolol Tartrate) 50 Mg Tablet, 100 MG PO HS Prescribed by: NEETU LI on 04/13/21 110 Montelukast Sodium (Montelukast Sodium) 10 Mg Tablet, 10 MG PO HS Prescribed by: NEETU LI on 04/13/21 110 Nystatin (Nystop) 60 Gm Powder, 1 APPLIC TOP BID PRN for RESTLESSNESS Prescribed by: NEETU LI on 04/13/211108 Rivaroxaban (Xarelto) 20 Mg Tablet, 20 MG PO HS Prescribed by: NEETU LI on 04/13/211108 Tizanidine HCl (Tizanidine HCl) 4 Mg Tablet, 4 MG PO BID PRN for MUSCLE SPASMS Prescribed by: NEETU LI on 04/13/211108 Review of Systems Review of Systems Constitutional: see HPI Eyes: No Symptoms Reported Ears, Nose, Mouth, Throat: no symptoms reported Respiratory: no symptoms reported Cardiovascular: no symptoms reported Genitourinary: no symptoms reported Musculoskeletal: no symptoms reported Skin: no symptoms reported Psychiatric/Neurological: No Symptoms Reported Past Qthmczl-Jnvykd-Cxqpjk Hx Immunizations Up To Date Tetanus Booster (TDap): Unknown PED Vaccines UTD: No First/Initial COVID19 Vaccinat: 09/01 Second COVID19 Vaccination Tesfaye: 10/02 Third COVID19 Vaccination Date: 09/01 Seasonal Allergies Seasonal Allergies: No Past Medical History Surgery/Hospitalization HX: HTN, AFIB, ASTHMA, GERD, IDDM Surgeries: Yes Adenoidectomy, Bladder Surgery, Tonsillectomy Respiratory: Yes Asthma, Sleep Apnea, COPD Currently Using CPAP: No (noncompliant) Currently Using BIPAP: Yes Cardiac: No Chronic Edema/Swelling, High Cholesterol, Hypertension Neurological: No Reproductive Disorders: No Female Reproductive Disorders: Denies Sexually Transmitted Disease: No HIV/AIDS: No Genitourinary: Yes (UTI) Gastrointestinal: Yes Gastroesophageal Reflux, Chronic Constipation Musculoskeletal: Yes Chronic Back Pain Endocrine: Yes (Morbid obesity) Diabetes, Insulin dep HEENT: No Loss of Vision: Denies Hearing Impairment: Denies Cancer: No Psychosocial: Yes Anxiety, Personality Disorder, Depression Integumentary: Yes (Diabetic ulcers) Eczema Blood Disorders: No Adverse Reaction/Blood Tranf: No Family Medical History Cancer 19 FATHER, Onset:Unknown 19 MOTHER, Onset:Unknown Cancer of colon 19 FATHER, Onset:Unknown 19 MOTHER, Onset:Unknown Family history: Cardiovascular disease 19 FATHER, Onset:Unknown 19 MOTHER, Onset:Unknown Family history: Diabetes mellitus 19 FATHER, Onset:Unknown 19 MOTHER, Onset:Unknown Heart Disease, Seizures Physical Exam Vital Signs Vital Signs - First Documented 07/10/21 15:50 Temp 35.9 Pulse 108 Resp 20 B/P (MAP) 146/122 (130) Capillary Refill : Height, Weight, BMI Height: 5'0" Weight: 409lbs. 0oz. 185.732594zv; 72.22 BMI Method:Stated General Appearance: WD/WN, no apparent distress HEENT: PERRL/EOMI, normal ENT inspection Neck: non-tender, full range of motion Respiratory: no respiratory distress, no accessory muscle use Extremities: normal range of motion, non-tender Psychiatric: alert, oriented x 3 Crainal Nerves: normal hearing, normal speech, PERRL Motor/Sensory: no motor deficit, no sensory deficit Skin: normal color, warm/dry Progress/Results/Core Measures Results/Orders My Orders Orders - DAVE MARIEE APRN Ct Head/Cervical Spine Wo (07/10/21 15:59) Ketorolac Injection (Toradol Injection) (07/10/21 16:00) Orphenadrine Inj (Ed Only) (Norflex Inje (07/10/21 16:00) Medications Given in ED Current Medications Medications Dose Ordered Sig/Carla Route Start Time Stop Time Status Last Admin Dose Admin Ketorolac Tromethamine 60 mg ONCE ONCE IM 07/10/21 16:00 07/10/21 16:01 DC 07/10/21 16:07 60 MG Orphenadrine Citrate 60 mg ONCE ONCE IM 07/10/21 16:00 07/10/21 16:01 DC 07/10/21 16:08 60 MG Vital Signs/I&O 07/10/21 15:50 Temp 35.9 Pulse 108 Resp 20 B/P (MAP) 146/122 (130) Departure Communication (Admissions) able to sign her name on EMS form with left hand. 1716-has been up walking from room 3 to bathroom without assistance. Impression Primary Impression: Cervical myofascial strain Disposition: HOME, SELF-CARE Condition: Stable Departure-Patient Inst. Decision time for Depature: 17:15 Referrals: ZAINAB HESS MD (PCP/Family) Primary Care Physician Patient Instructions: Neck Pain Add. Discharge Instructions: warm compresses to your neck. Follow up with your doc later this week. All discharge instructions reviewed with patient and/or family. Voiced understanding. DAVE MARIEE APRN Jul 10, 2021 16:03
--- NOTE | 2021-07-10 17:12 | Diagnostic Imaging Report ---
PROCEDURE: CT head and CT cervical spine without contrast. TECHNIQUE: Multiple contiguous axial images were obtained through the brain and cervical spine without the use of intravenous contrast. Sagittal and coronal reformations through the cervical spine were then performed. Auto Exposure Controls were utilized during the CT exam to meet ALARA standards for radiation dose reduction. INDICATION: Headache and neck pain. COMPARISON: No prior studies are available for comparison. FINDINGS: CT HEAD: The ventricles and sulci are within normal limits. No sulcal effacement or midline shift is identified. Posterior fossa is somewhat limited due to large amount of artifact from patient's large body habitus. No acute intra-axial or extra-axial hemorrhage is detected. Cisterns are patent. Visualized paranasal sinuses are clear. IMPRESSION: No acute intracranial process is detected. CT CERVICAL SPINE: Overall image quality is limited due to patient large body habitus. Alignment appears normal. No fractures are seen. Odontoid appears intact. IMPRESSION: No acute abnormality is detected. Dictated by: Dictated on workstation # [id number]
== END 2021-07-10 17:31 | disposition home or self-care (01) ==
LOC: EDUNIT# 15:54 → ER 15:55
DX: S16.1XXA Strain of muscle, fascia and tendon at neck level, initial encounter (principal); I48.91 Unspecified atrial fibrillation; E66.01 Morbid (severe) obesity due to excess calories; Z68.45 Body mass index [BMI] 70 or greater, adult; Z79.01 Long term (current) use of anticoagulants; X50.0XXA Overexertion from strenuous movement or load, initial encounter
CPT/HCPCS: 70450; 72125; 99283

== ENCOUNTER 2021-11-22 11:33 | Emergency (ER) | payer MEDICAID ==
[~2021-11-22] VITALS: Ht 157.5 cm; Wt 210.5 kg
--- NOTE | 2021-11-22 12:27 | ED General ---
General Stated Complaint: AFIB,POSSIBLE PNEUMONIA Source of Information: Patient Exam Limitations: No Limitations History of Present Illness Date Seen by Provider: Nov 22, 2021 Time Seen by Provider: 12:12 Initial Comments Patient is a 46-year-old morbidly obese patient history of atrial fibrillation, medical noncompliance who presents to the emergency department with concern for repeated syncopal episodes at home she states, concern for rapid heart rate related to her atrial fibrillation. She states she just does not feel well. She has been seen at [facility] clinic and advised to come here for possible admission. She denies fevers or chills. She has had mild cough. No chest pain. States that she has had several unwitnessed syncopal events where she has lost time. No reported injuries. She is concerned about swelling in her legs and weight gain as a result of increasing fluid. No calf pain, erythema in her legs/rashes. She feels short of breath even when wearing her oxygen. Timing/Duration: 2-3 Days, Getting Worse Severity: Moderate Associated Systoms: Shortness of Air, Weakness, Other (weight gain) Allergies and Home Medications Allergies Coded Allergies: No Known Drug Allergies (Unverified , 08/08/16) Patient Home Medication List Home Medication List Reviewed: Yes Albuterol Sulfate (Proventil Hfa) 6.7 Gm Hfa.aer.ad, 2 PUFF INH Q4H PRN for SHORTNESS OF BREATH Prescribed by: NEETU LI on 04/13/211108 Carboxymethylcellulose Sodium (Refresh Plus) 1 Each Droperette, 0 EACH OU PRN PRN for DRY EYES Prescribed by: NEETU LI on 04/13/21 110 Duloxetine HCl (Duloxetine HCl) 60 Mg Capsule.dr, 120 MG PO HS Prescribed by: NEETU LI on 04/13/21 110 Esomeprazole Magnesium (Esomeprazole Magnesium) 20 Mg Capsule.dr, 20 MG PO HS Prescribed by: NEETU LI on 04/13/21 110 Fluconazole (Diflucan) 200 Mg Tablet, 200 MG PO ONCE Prescribed by: GABI KAUR on 11/22/21 0945 Furosemide (Furosemide) 20 Mg Tablet, 20 MG PO BID Prescribed by: NEETU LI on 04/13/21 110 Lisinopril (Lisinopril) 10 Mg Tablet, 10 MG PO HS Prescribed by: NEETU LI on 04/13/211108 Meloxicam (Meloxicam) 7.5 Mg Tablet, 7.5 MG PO HS Prescribed by: NEETU LI on 04/13/211108 Metoprolol Tartrate (Metoprolol Tartrate) 50 Mg Tablet, 100 MG PO HS Prescribed by: NEETU LI on 04/13/211108 Montelukast Sodium (Montelukast Sodium) 10 Mg Tablet, 10 MG PO HS Prescribed by: NEETU LI on 04/13/21 110 Nystatin (Nystop) 60 Gm Powder, 1 APPLIC TOP BID PRN for RESTLESSNESS Prescribed by: NEETU LI on 04/13/211108 Nystatin (Nystatin) 15 Billion Unit Powder.ea., 1 EACH MC BID Prescribed by: GABI KAUR on 11/22/21 1455 Rivaroxaban (Xarelto) 20 Mg Tablet, 20 MG PO HS Prescribed by: NEETU LI on 04/13/211108 Tizanidine HCl (Tizanidine HCl) 4 Mg Tablet, 4 MG PO BID PRN for MUSCLE SPASMS Prescribed by: NEETU LI on 04/13/211108 Review of Systems Review of Systems Constitutional: see HPI, malaise, weakness EENTM: no symptoms reported Respiratory: short of breath Cardiovascular: No chest pain; edema, syncope Gastrointestinal: no symptoms reported Genitourinary: no symptoms reported Musculoskeletal: no symptoms reported Skin: pruritus, rash Psychiatric/Neurological: Anxiety All Other Systems Reviewed Negative Unless Noted: Yes Past Tjpwyto-Gfnxrr-Pptepc Hx Immunizations Up To Date Tetanus Booster (TDap): Unknown PED Vaccines UTD: No First/Initial COVID19 Vaccinat: 09/01 Second COVID19 Vaccination Tesfaye: 10/02 Third COVID19 Vaccination Date: 09/01 Seasonal Allergies Seasonal Allergies: No Past Medical History Surgery/Hospitalization HX: HTN, AFIB, ASTHMA, GERD, IDDM Surgeries: Yes Adenoidectomy, Bladder Surgery, Tonsillectomy Respiratory: Yes Asthma, Sleep Apnea, COPD Currently Using CPAP: No (noncompliant) Currently Using BIPAP: Yes Cardiac: No Chronic Edema/Swelling, High Cholesterol, Hypertension Neurological: No Reproductive Disorders: No Female Reproductive Disorders: Denies Sexually Transmitted Disease: No HIV/AIDS: No Genitourinary: Yes (UTI) Gastrointestinal: Yes Gastroesophageal Reflux, Chronic Constipation Musculoskeletal: Yes Chronic Back Pain Endocrine: Yes (Morbid obesity) Diabetes, Insulin dep HEENT: No Loss of Vision: Denies Hearing Impairment: Denies Cancer: No Psychosocial: Yes Anxiety, Personality Disorder, Depression Integumentary: Yes (Diabetic ulcers) Eczema Blood Disorders: No Adverse Reaction/Blood Tranf: No Family Medical History Cancer 19 FATHER, Onset:Unknown 19 MOTHER, Onset:Unknown Cancer of colon 19 FATHER, Onset:Unknown 19 MOTHER, Onset:Unknown Family history: Cardiovascular disease 19 FATHER, Onset:Unknown 19 MOTHER, Onset:Unknown Family history: Diabetes mellitus 19 FATHER, Onset:Unknown 19 MOTHER, Onset:Unknown Heart Disease, Seizures Physical Exam Vital Signs Vital Signs - First Documented Capillary Refill : Height, Weight, BMI Height: 5'0" Weight: 409lbs. 0oz. [id number]; 71.00 BMI Method:Stated General Appearance: No Apparent Distress, WD/WN, Obese (morbid obesity) Eyes: Bilateral Eye Normal Inspection, Bilateral Eye PERRL, Bilateral Eye EOMI Neck: Normal Inspection Respiratory: Lungs Clear, Normal Breath Sounds, No Accessory Muscle Use, No Respiratory Distress Cardiovascular: Normal Peripheral Pulses, Irregularly Irregular, Tachycardia (110) Gastrointestinal: Other (morbid obesity) Extremity: Normal Capillary Refill, Normal Inspection, Normal Range of Motion Neurologic/Psychiatric: Alert, Oriented x3, No Motor/Sensory Deficits, Normal Mood/Affect, 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 II-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 Norm as Tested Skin: Normal Color, Warm/Dry, Rash (diffuse candidal dermatitis skin folds of left abdomen and lower abdomen; no open wounds or drainage) Focused Exam Lactate Level 11/22/21 12:50: Lactic Acid Level 1.56 Lactic Acid Level Laboratory Tests Test 11/22/21 12:50 Lactic Acid Level 1.56 MMOL/L (0.50-2.00) Progress/Results/Core Measures Suspected Sepsis SIRS Temperature: Pulse: Respiratory Rate: Laboratory Tests 11/22/21 12:35: White Blood Count 6.5 Blood Pressure / Mean: 11/22/21 12:50: Lactic Acid Level 1.56 Laboratory Tests 11/22/21 12:35: Creatinine 0.98, INR Comment 1.2, Platelet Count 165, Total Bilirubin 0.4 Results/Orders Lab Results Laboratory Tests Test 11/22/21 12:35 11/22/21 12:50 11/22/21 13:34 Range/Units White Blood Count 6.5 4.3-11.0 10^3/uL Red Blood Count 3.60 L 3.80-5.11 10^6/uL Hemoglobin 11.0 L 11.5-16.0 g/dL Hematocrit 34 L 35-52 % Mean Corpuscular Volume 94 80-99 fL Mean Corpuscular Hemoglobin 31 25-34 pg Mean Corpuscular Hemoglobin Concent 33 32-36 g/dL Red Cell Distribution Width 15.9 H 10.0-14.5 % Platelet Count 165 130-400 10^3/uL Mean Platelet Volume 11.3 9.0-12.2 fL Immature Granulocyte % (Auto) 1 % Neutrophils (%) (Auto) 74 42-75 % Lymphocytes (%) (Auto) 14 12-44 % Monocytes (%) (Auto) 8 0-12 % Eosinophils (%) (Auto) 3 0-10 % Basophils (%) (Auto) 1 0-10 % Neutrophils # (Auto) 4.8 1.8-7.8 10^3/uL Lymphocytes # (Auto) 0.9 L 1.0-4.0 10^3/uL Monocytes # (Auto) 0.5 0.0-1.0 10^3/uL Eosinophils # (Auto) 0.2 0.0-0.3 10^3/uL Basophils # (Auto) 0.0 0.0-0.1 10^3/uL Immature Granulocyte # (Auto) 0.0 0.0-0.1 10^3/uL Prothrombin Time 15.5 H 12.2-14.7 SEC INR Comment 1.2 0.8-1.4 Activated Partial Thromboplast Time 27 24-35 SEC Sodium Level 136 135-145 MMOL/L Potassium Level 4.9 3.6-5.0 MMOL/L Chloride Level 98 98-107 MMOL/L Carbon Dioxide Level 28 21-32 MMOL/L Anion Gap 10 5-14 MMOL/L Blood Urea Nitrogen 16 7-18 MG/DL Creatinine 0.98 0.60-1.30 MG/DL Estimat Glomerular Filtration Rate 71 BUN/Creatinine Ratio 16 Glucose Level 367 H 70-105 MG/DL Calcium Level 9.0 8.5-10.1 MG/DL Corrected Calcium 9.4 8.5-10.1 MG/DL Total Bilirubin 0.4 0.1-1.0 MG/DL Aspartate Amino Transf (AST/SGOT) 17 5-34 U/L Alanine Aminotransferase (ALT/SGPT) 17 0-55 U/L Alkaline Phosphatase 99 40-136 U/L Total Protein 6.8 6.4-8.2 GM/DL Albumin 3.5 3.2-4.5 GM/DL Lactic Acid Level 1.56 0.50-2.00 MMOL/L Urine Color YELLOW Urine Clarity CLEAR Urine pH 6.5 5-9 Urine Specific [place] 1.015 L 1.016-1.022 Urine Protein 1+ H NEGATIVE Urine Glucose (UA) 3+ H NEGATIVE Urine Ketones NEGATIVE NEGATIVE Urine Nitrite NEGATIVE NEGATIVE Urine Bilirubin NEGATIVE NEGATIVE Urine Urobilinogen 1.0 < = 1.0 MG/DL Urine Leukocyte Esterase NEGATIVE NEGATIVE Urine RBC (Auto) NEGATIVE NEGATIVE Urine RBC NONE /HPF Urine WBC 2-5 /HPF Urine Squamous Epithelial Cells 2-5 /HPF Urine Crystals NONE /LPF Urine Bacteria NEGATIVE /HPF Urine Casts NONE /LPF Urine Mucus NEGATIVE /LPF Urine Culture Indicated NO Micro Results Microbiology 11/22/21 Urine Culture - Final, Complete 3 or more isolates Strep, Beta Hemolytic Group B 11/22/21 Blood Culture - Preliminary, Resulted No growth 11/22/21 Blood Culture - Preliminary, Resulted No growth My Orders Orders - GABI KAUR MD Cbc With Automated Diff (11/22/21 12:24) Comprehensive Metabolic Panel (11/22/21 12:24) Blood Culture (11/22/21 12:24) Urinalysis (11/22/21 12:24) Urine Culture (11/22/21 12:24) Protime With Inr (11/22/21 12:24) Partial Thromboplastin Time (11/22/21 12:24) Chest 1 View, Ap/Pa Only (11/22/21 12:24) Ed Iv/Invasive Line Start (11/22/21 12:24) Ed Iv/Invasive Line Start (11/22/21 12:24) Vital Signs Adult Sepsis Patie Q15M (11/22/21 12:24) O2 (11/22/21 12:24) Remove Rings In Anticipation O (11/22/21 12:24) Lactic Acid Analyzer (11/22/21 12:24) Vital Signs/I&O 11/22/21 11/22/21 11/22/21 11/22/21 11:52 11:52 11:52 15:11 Temp 36.8 36.2 Pulse 112 101 Resp 22 16 B/P (MAP) 116/97 (103) 139/82 Pulse Ox 95 98 98 O2 Delivery Nasal Cannula Room Air Nasal Cannula Room Air O2 Flow Rate 3.00 3.00 Capillary Refill : Progress Note : Time: 14:30 Progress Note Long discussion with Dr. Hess regarding the patient's presentation, labs and chest x-ray. There is a suspicion for some mental health component to the patient's current circumstance. She is quite unhappy living in a hotel and frustrated. I attempted to reassure her that everything that was studied today was within normal limits except for her blood sugar. She is paranoid that "something is going on" with her heart or in her body and she is going to be in 2 weeks. She insisted that I speak with Dr. Hess about having her admitted. When I reviewed everything with Dr. Hess she to was comfortable with the patient going home. She recommended doubling her Lasix to 40 mg twice a day for a couple of days. We reviewed Isamar's metoprolol dosing. She was discharged back in April 201904/2021 on metoprolol tartrate 100 mg twice daily. She states that subsequent to that hospitalization she was admitted at [facility] for 2 weeks and "almost " due to a medication issue. She had a phone visit with her alteration hand in [place] and he changed her back to 100 mg of metoprolol at night. I called her pharmacy, [facility] and verified that she is on metoprolol tartrate 100 mg nightly, Lasix 40 mg as needed this was filled on 727. She had a Diflucan 150 mg x 1 tablet filled on 11-14. It seems she is picking up her meds on a monthly basis. When I attempted to discuss the increase in her Lasix she became very hostile and stated "I am not doing that". She states taking Lasix makes her cramp at night. I tried to reassure her that this was the only way that we could remove excess fluid and that would be a medication she would get should she meet indications for inpatient treatment. That this would be the best course of action in order to attempt to alleviate her shortness of breath and this "swelling" she states that she has. She ultimately acquiesced and stated that she would take it however I doubt her compliance with this. She was quite upset that I would not admit her to the hospital. Her heart rate is anywhere from 97-1 15. Her blood pressure is good. She is not hypoxic on her home O2. Her chest x-ray does not show any type of concerning increased interstitial fluid/pulmonary edema. She has quite a bit of candidal dermatitis in her skin folds more on the left than the right side of her body. She does have some over her anterior abdominal wall as well. No concerning findings for sepsis or acute coronary syndrome. She is neurologically normal. I advised her that these were things that could be treated as an outpatient. Return precautions were provided. Diagnostic Imaging Diagonstic Imaging: Xray Plain Films/CT/US/NM/MRI: chest Comments [facility], [place] NAME: ISAMAR BOYLE I [facility] REC#: [id number] PT STATUS: REG ER : 1975 PHYSICIAN: GABI KAUR MD ADMIT DATE: 11/22/21/ER Signed Date of Exam:11/22/21 CHEST 1 VIEW, AP/PA ONLY EXAMINATION: Chest 1 view HISTORY: sob COMPARISON: 05/15/2021. FINDINGS: Cardiac silhouette is mildly enlarged. There are mild interstitial opacities within the lung bases. No pleural effusion or pneumothorax. The osseous structures are intact. IMPRESSION: 1. Stable cardiomegaly and mild bibasilar interstitial opacities. Findings can be seen with pulmonary edema, atelectasis, or atypical infection. Dictated by: Dictated on workstation # [id number] Dict: 11/22/21 1328 Trans: 11/22/21 1359 [id number] Interpreted by: ENEDINA HERRON DO Electronically signed by: ENEDINA HERRON DO 11/22/21 135 Departure Impression Primary Impression: Atrial fibrillation Qualified Codes: I48.91 - Unspecified atrial fibrillation Additional Impressions: Candidal dermatitis Anxiety about health Disposition: HOME, SELF-CARE Condition: Stable Departure-Patient Inst. Decision time for Depature: 14:52 Referrals: ZAINAB HESS MD (PCP/Family) Primary Care Physician Patient Instructions: Atrial Fibrillation and Atrial Flutter ED, Fungal Skin Ra ED Add. Discharge Instructions: Take the Diflucan tablets once a week for the next 3 weeks to help treat the yeast infection in your skin folds. Apply the nystatin powder to the skin folds under your breast and at your abdomen to help treat the yeast infection as well. Continue to take your daily prescribed medications as directed except for the Lasix. We want you to take Lasix 40 mg twice a day for the next 2 days. You can take your Lasix at 9 AM and again at 3 or 4 PM. This should allow the Lasix enough time to get out of your system. Continue your potassium supplementation with the Lasix. If you develop any new, emergent or concerning symptoms please return to the emergency room for reevaluation You have a scheduled appointment with Dr. Hess's nurse practitioner on November 26 at 10:40 AM. I believe this is a telehealth visit. Scripts Nystatin (Nystatin) 15 Billion Unit Powder.ea. 1 EACH MC BID for 10 Days, #1 UNIT apply to affected areas at skin folds twice daily for 10 days Prov: GABI KAUR MD 11/22/21 Fluconazole (Diflucan) 200 Mg Tablet 200 MG PO ONCE, #3 TAB take one tablet once a week for 3 weeks Prov: GABI KAUR MD 11/22/21 GABI KAUR MD Nov 22, 2021 12:27
[2021-11-22 12:53] LABS: BASOPHILS % (AUTO) 1 % (0-10); EOSINOPHILS # (AUTO) 0.2 10^3/uL (0.0-0.3); EOSINOPHILS % (AUTO) 3 % (0-10); HEMATOCRIT 34 % (35-52); LYMPHOCYTES # (AUTO) 0.9 10^3/uL (1.0-4.0); LYMPHOCYTES % (AUTO) 14 % (12-44); MEAN CORPUSCULAR HEMOGLOBIN 31 pg (25-34); MEAN CORPUSCULAR HGB CONC 33 g/dL (32-36); MEAN CORPUSCULAR VOLUME 94 fL (80-99); MEAN PLATELET VOLUME 11.3 fL (9.0-12.2); MONOCYTES # (AUTO) 0.5 10^3/uL (0.0-1.0); MONOCYTES % (AUTO) 8 % (0-12); NEUTROPHILS # (AUTO) 4.8 10^3/uL (1.8-7.8); NEUTROPHILS % (AUTO) 74 % (42-75); PLATELET COUNT 165 10^3/uL (130-400); WHITE BLOOD COUNT 6.5 10^3/uL (4.3-11.0)
[2021-11-22 13:06] LABS: INR 1.2 (0.8-1.4); PROTHROMBIN TIME PATIENT 15.5 SEC (12.2-14.7)
[2021-11-22 13:13] LABS: ALBUMIN 3.5 GM/DL (3.2-4.5); BILIRUBIN,TOTAL 0.4 MG/DL (0.1-1.0); CREATININE SERUM 0.98 MG/DL (0.60-1.30); POTASSIUM 4.9 MMOL/L (3.6-5.0); TOTAL PROTEIN 6.8 GM/DL (6.4-8.2)
--- NOTE | 2021-11-22 13:40 | Diagnostic Imaging Report ---
EXAMINATION: Chest 1 view HISTORY: sob COMPARISON: 05/15/2021. FINDINGS: Cardiac silhouette is mildly enlarged. There are mild interstitial opacities within the lung bases. No pleural effusion or pneumothorax. The osseous structures are intact. IMPRESSION: 1. Stable cardiomegaly and mild bibasilar interstitial opacities. Findings can be seen with pulmonary edema, atelectasis, or atypical infection. Dictated by: Dictated on workstation # [id number]
[2021-11-22 13:46] LABS: BILIRUBIN,URINE NEGATIVE (NEGATIVE); CLARITY,URINE CLEAR; COLOR,URINE YELLOW; GLUCOSE, URINE (UA) 3+ (NEGATIVE); KETONES,URINE NEGATIVE (NEGATIVE); LEUKOCYTE ESTERASE ,URINE NEGATIVE (NEGATIVE); NITRITE,URINE NEGATIVE (NEGATIVE); PH,URINE 6.5 (5-9); PROTEIN,URINE 1+ (NEGATIVE)
[2021-11-22 13:53] LABS: BACTERIA,URINE NEGATIVE /HPF
[2021-11-22] MEDS ORDERED: FLUC200T PO (14:55)
[2021-11-22] MEDS ORDERED: NYST1POW31 MC (14:55)
[2021-11-22 15:11] VITALS: BP 139/82
== END 2021-11-22 15:11 | disposition home or self-care (01) ==
LOC: EDUNIT# 11:33 → ER 11:34
DX: I48.91 Unspecified atrial fibrillation (principal); B37.2 Candidiasis of skin and nail; F41.9 Anxiety disorder, unspecified; G47.30 Sleep apnea, unspecified; E66.01 Morbid (severe) obesity due to excess calories; Z68.45 Body mass index [BMI] 70 or greater, adult; Z99.89 Dependence on other enabling machines and devices
CPT/HCPCS: 36415; 71045; 80053; 81000; 83605; 85025; 85610; 85730; 87040; 87077; 87088

== ENCOUNTER → 2021-12-11 | Emergency (ER) | payer MEDICAID ==
[~2021-12-11] MED LIST changes: +FLUC200T PO; +NYST1POW31 MC
[2021-12-11 22:59] VITALS: BP 142/93
--- NOTE | 2021-12-11 23:42 | ED General ---
General Chief Complaint: Psych/Social Disorder Stated Complaint: CHEST PAIN Nursing Triage Note: pt presents via ems. pt reports having cp that started after someone was yelling at her. pt reports the chest pain is minimal now. when asked where her chest pain was located pt stated "the same place it always is". when asked about her medical hx pt stated "its in my chart". nurse attempted to start an IV and pt refused. Source of Information: Patient Exam Limitations: Other History of Present Illness Date Seen by Provider: Dec 11, 2021 Time Seen by Provider: 23:30 Initial Comments Patient is a 46-year-old female who presents to the emergency department by ambulance chief complaint of "chest pain". When I arrived into the room to evaluate the patient she was sitting on the bedside commode fully clothed. She had all of her belongings in the floor next to her. The ED stretcher was angulated at approximately 45 degrees and the patient states that she sat up and slid forward out of the bed onto the floor. The process maintenance technician, Miri, was in the room and stated that she found the patient in the floor. She was assisted to the bedside commode. No injuries reported. The patient was not answering my q uestions. I attempted to ask her about her chest pain and she states "it is gone now". She refused to be reconnected to the monitor saying "I do not want that". I advised her that I could not fully evaluate her and ensure that there were no medical emergencies if she was not connected to the monitor and if we could not assess her. She told me "I do not want any blood work or anything like that". I asked her why she came to the emergency room and she advised me it was due to the chest pain that she describes as "dull". She would not answer further questions. I advised her if she would not be compliant with medical evaluation that there was really no reason for her to be in the emergency department. We could not assess her or do anything for her to evaluate her if we could not perform diagnostic testing and physical examination. She then told me "I want to leave AMA". Patient states that she did take one of her Atarax after coming into the emergency department she did also state that she felt like her chest pain was due to her "anxiety". At no time during my stay in her room, ED bed 3 with the patient connected to the monitor. She did not appear in distress. She was playing with her phone. AMA paperwork was filled out and the patient left. Allergies and Home Medications Allergies Coded Allergies: No Known Drug Allergies (Unverified , 08/08/16) Patient Home Medication List Home Medication List Reviewed: Yes Albuterol Sulfate (Proventil Hfa) 6.7 Gm Hfa.aer.ad, 2 PUFF INH Q4H PRN for SHORTNESS OF BREATH Prescribed by: NEETU LI on 04/13/211108 Carboxymethylcellulose Sodium (Refresh Plus) 1 Each Droperette, 0 EACH OU PRN PRN for DRY EYES Prescribed by: NEETU LI on 04/13/211108 Duloxetine HCl (Duloxetine HCl) 60 Mg Capsule.dr, 120 MG PO HS Prescribed by: NEETU LI on 04/13/211108 Esomeprazole Magnesium (Esomeprazole Magnesium) 20 Mg Capsule.dr, 20 MG PO HS Prescribed by: NEETU LI on 04/13/21 110 Fluconazole (Diflucan) 200 Mg Tablet, 200 MG PO ONCE Prescribed by: GABI KAUR on 11/22/21 1455 Furosemide (Furosemide) 20 Mg Tablet, 20 MG PO BID Prescribed by: NEETU LI on 04/13/211108 Lisinopril (Lisinopril) 10 Mg Tablet, 10 MG PO HS Prescribed by: NEETU LI on 04/13/211108 Meloxicam (Meloxicam) 7.5 Mg Tablet, 7.5 MG PO HS Prescribed by: NEETU LI on 04/13/21 110 Metoprolol Tartrate (Metoprolol Tartrate) 50 Mg Tablet, 100 MG PO HS Prescribed by: NEETU LI on 04/13/21 110 Montelukast Sodium (Montelukast Sodium) 10 Mg Tablet, 10 MG PO HS Prescribed by: NEETU LI on 04/13/211108 Nystatin (Nystop) 60 Gm Powder, 1 APPLIC TOP BID PRN for RESTLESSNESS Prescribed by: NEETU LI on 04/13/211108 Nystatin (Nystatin) 15 Billion Unit Powder.ea., 1 EACH MC BID Prescribed by: GABI KAUR on 11/22/21 1455 Rivaroxaban (Xarelto) 20 Mg Tablet, 20 MG PO HS Prescribed by: NEETU LI on 04/13/21 1109 Tizanidine HCl (Tizanidine HCl) 4 Mg Tablet, 4 MG PO BID PRN for MUSCLE SPASMS Prescribed by: NEETU LI on 04/13/21 1109 Review of Systems Review of Systems Constitutional: see HPI Unable to obtain secondary to patient noncompliance Past Duxppmr-Tqbdds-Xfnlic Hx Patient Social History Tobacco Use?: No Substance use?: No Alcohol Use?: No Pt feels they are or have been: No Immunizations Up To Date Tetanus Booster (TDap): Unknown PED Vaccines UTD: No Influenza Vaccine Up-to-Date: No; Not Current First/Initial COVID19 Vaccinat: unknown date Second COVID19 Vaccination Tesfaye: unknown date Third COVID19 Vaccination Date: 09/01 Seasonal Allergies Seasonal Allergies: No Past Medical History Surgery/Hospitalization HX: pt told nurse to see her chart Surgeries: Yes Adenoidectomy, Bladder Surgery, Tonsillectomy Respiratory: Yes Asthma, Sleep Apnea, COPD Currently Using CPAP: No (noncompliant) Currently Using BIPAP: Yes Cardiac: No Chronic Edema/Swelling, High Cholesterol, Hypertension Neurological: No Reproductive Disorders: No Female Reproductive Disorders: Denies Sexually Transmitted Disease: No HIV/AIDS: No Genitourinary: Yes (UTI) Gastrointestinal: Yes Gastroesophageal Reflux, Chronic Constipation Musculoskeletal: Yes Chronic Back Pain Endocrine: Yes (Morbid obesity) Diabetes, Insulin dep HEENT: No Loss of Vision: Denies Hearing Impairment: Denies Cancer: No Psychosocial: Yes Anxiety, Personality Disorder, Depression Integumentary: Yes (Diabetic ulcers) Eczema Blood Disorders: No Adverse Reaction/Blood Tranf: No Family Medical History Cancer 19 FATHER, Onset:Unknown 19 MOTHER, Onset:Unknown Cancer of colon 19 FATHER, Onset:Unknown 19 MOTHER, Onset:Unknown Family history: Cardiovascular disease 19 FATHER, Onset:Unknown 19 MOTHER, Onset:Unknown Family history: Diabetes mellitus 19 FATHER, Onset:Unknown 19 MOTHER, Onset:Unknown Heart Disease, Seizures Physical Exam Vital Signs Vital Signs - First Documented 12/11/21 22:59 Pulse 86 Resp 24 B/P (MAP) 142/93 (109) Pulse Ox 98 O2 Delivery Nasal Cannula O2 Flow Rate 3.00 Capillary Refill : Height, Weight, BMI Height: 5'0" Weight: 409lbs. 0oz. 185.340275ff; 84.00 BMI Method:Stated General Appearance: No Apparent Distress, Obese Respiratory: No Respiratory Distress Skin: Normal Color Comments Unable to perform physical examination secondary to the patient's refusal/noncompliance Progress/Results/Core Measures Suspected Sepsis SIRS Temperature: Pulse: 86 Respiratory Rate: 24 Blood Pressure 142 /93 Mean: 109 Results/Orders My Orders Orders - GABI KAUR MD Ekg Tracing (12/11/21 23:07) Vital Signs/I&O 12/11/21 22:59 Pulse 86 Resp 24 B/P (MAP) 142/93 (109) Pulse Ox 98 O2 Delivery Nasal Cannula O2 Flow Rate 3.00 Capillary Refill : Blood Pressure Mean: 109 ECG Initial ECG Impression Date: Dec 11, 2021 Initial ECG Impression Time: 23:10 Initial ECG Rate: 111 Initial ECG Rhythm: A Fib/Flutter Initial ECG Impression: Nonspecific Changes Comment Afib with RVR; poor r wave progression over the precordium Departure Impression Primary Impression: Chest pain Qualified Codes: R07.9 - Chest pain, unspecified Additional Impressions: Anxiety Medically noncompliant Disposition: 07 AGAINST MEDICAL ADVICE Condition: Against Medical Advice Departure-Patient Inst. Referrals: ZAINAB HESS MD (PCP/Family) Primary Care Physician GABI KAUR MD Dec 11, 2021 23:42
== END ==
LOC: EDUNIT# 22:40 → ER 22:41
DX: F41.9 Anxiety disorder, unspecified (principal); R07.9 Chest pain, unspecified; G47.30 Sleep apnea, unspecified; E66.01 Morbid (severe) obesity due to excess calories; E11.9 Type 2 diabetes mellitus without complications; Z91.14 Patient's other noncompliance with medication regimen; Z68.45 Body mass index [BMI] 70 or greater, adult; Z99.89 Dependence on other enabling machines and devices; Z79.4 Long term (current) use of insulin
CPT/HCPCS: 93005; 99285